=== PATIENT | female | born 1940 | race Hispanic/Latino ===

== ENCOUNTER 2021-05-04 21:24 | Emergency (ER) | payer OTHER ==
--- OUTSIDE RECORDS SUMMARY | 2021-05-04 21:28 | XMS REPORT | Continuity of Care Document ---
:1940 Author Organization [facility] t Address [address] [place] [address] Care Team Providers Name Role Phone Unavailable Unavailable Unavailable Problems This patient has no known problems. Allergies, Adverse Reactions, Alerts This patient has no known allergies or adverse reactions. Medications This patient has no known medications. Procedures This patient has no known procedures. Encounters Start End Encounter Admission Attending Care Care Encounter Source Date/Time Date/Time Type Type Clinicians Facility Department ID 2021-02-21 2021-02-21 Outpatient [id number] 10:04:00 10:04:00 [facility] sukumar [facility] l Results This patient has no known results.
--- NOTE | 2021-05-05 00:53 | EDPHYS ---
Physician Documentation [facility] Name: Melanie Lyons Age: 80 yrs Sex: Female : 1940 Arrival Date: 05/04/2021 Time: 21:28 Bed 24 Private MD: ED Physician Barbara Gomez HPI: 05/04 23:06 This 80 yrs old Female presents to ER via Ambulatory with complaints of Cough - For 2 kb mths. 23:06 The patient or guardian reports cough, that is intermittent, described as moderate, kb with no sputum. Onset: The symptoms/episode began/occurred 2 month(s) ago. Severity of symptoms: At their worst the symptoms were moderate, in the emergency department the symptoms are unchanged. Modifying factors: The symptoms are alleviated by nothing, the symptoms are aggravated by nothing. Associated signs and symptoms: The patient has no apparent associated signs or symptoms. The patient has not experienced similar symptoms in the past. The patient has not recently seen a physician. Patient reports she was on lisinopril and developed a dry cough. States she has had a cough for 2 months now. PCP stopped lisinopril and changed her to metoprolol, also gave Tessalon Perles for cough. Patient states she still has the cough and the medicine does not seem to help. Reports soreness to torso from coughing.. Historical: - Allergies: 22:10 Lisinopril; cough; iw - PMHx: 22:10 Hypertensive disorder; Diabetes mellitus; iw - PSHx: 22:10 None; iw - Immunization history:: Client reports having NOT received the Covid vaccine. - Social history:: Smoking status: Patient denies any tobacco usage or history of. ROS: 23:06 Constitutional: Negative for fever, chills, and weight loss. kb 23:06 Respiratory: Positive for cough, Negative for dyspnea on exertion, hemoptysis, orthopnea, pleurisy, shortness of breath, sputum production, wheezing. 23:06 All other systems are negative. Exam: 23:06 Constitutional: This is a well developed, well nourished patient who is awake, alert, kb and in no acute distress. Head/Face: Normocephalic, atraumatic. ENT: Moist Mucous membranes Cardiovascular: Regular rate and rhythm with a normal S1 and S2. No gallops, murmurs, or rubs. No pulse deficits. Respiratory: Respirations even and unlabored. No increased work of breathing, no retractions or nasal flaring. Skin: Warm, dry with normal turgor. Normal color. MS/ Extremity: Pulses equal, no cyanosis. Neurovascular intact. Full, normal range of motion. Neuro: Awake and alert, GCS 15, oriented to person, place, time, and situation. Moves all extremities. Normal gait. Psych: Awake, alert, with orientation to person, place and time. Behavior, mood, and affect are within normal limits. Vital Signs: 22:07 BP 158 / 65; Pulse 70; Resp 16; Temp 98.9; Pulse Ox 100% on R/A; iw MDM: 22:47 Patient medically screened. 23:13 Data reviewed: vital signs, nurses notes. Data interpreted: Pulse oximetry: on room air kb is 100 %. Interpretation: normal. Counseling: I had a detailed discussion with the patient and/or guardian regarding: the historical points, exam findings, and any diagnostic results supporting the discharge/admit diagnosis, radiology results, the need for outpatient follow up, a family practitioner, to return to the emergency department if symptoms worsen or persist or if there are any questions or concerns that arise at home. 05/04 23:20 Order name: Chest Pa And Lat (2 Views) EDNM Administered Medications: 05/05 01:06 Drug: Tussionex Pennkinetic ER (chlorpheniramine-hydrocodone) Suspension 2.5 ml Route: lh3 PO; 01:06 Follow up: Response: No change in condition 3 Disposition: 07:16 Co-signature as Attending Physician, Barbara Gomez I agree with the assessment and plan sp3 of care. Disposition Summary: 05/05/21 00:53 Discharge Ordered Location: Home Condition: Stable kb Diagnosis - Cough kb Followup: kb - With: Emergency Department - When: As needed - Reason: Worsening of condition Followup: kb - With: Private Physician - When: 2 - 3 days - Reason: Recheck today's complaints, Continuance of care, Re-evaluation by your physician Discharge Instructions: - Discharge Summary Sheet kb - Cough, Adult, [id number] kb Forms: - Medication Reconciliation Form kb - Thank You Letter kb - Antibiotic Education kb - Prescription Opioid Use kb Signatures: Dispatcher [employer] [facility], Abigail, APPLICATION INTEGRATION ARCHITECT-C APPLICATION INTEGRATION ARCHITECT-Ckb Gail Anderson, RN RN iw Barbara Gomez sp3 Karo Nelson RN RN lh3 Corrections: (The following items were deleted from the chart) 05/04 22:11 22:10 Allergies: Lisinopril; violet lazo
--- NOTE | 2021-05-05 00:53 | ER ---
Nurse's Notes [facility] Name: Melanie Lyons Age: 80 yrs Sex: Female : 1940 Arrival Date: 05/04/2021 Time: 21:28 Bed 24 Private MD: Diagnosis: Cough Presentation: 05/04 22:07 Chief complaint: Patient's son or daughter states: cough X 2 months, cannot sleep, it's iw from one of her BP meds, recently got a new PCP, was prescribed Tessalon Perles on 05-02-21 but it's not helping, now her ribs hurt from coughing. Coronavirus screen: At this time, the client does not indicate any symptoms associated with coronavirus-19. Ebola Screen: Patient negative for fever greater than or equal to 101.5 degrees Fahrenheit, and additional compatible Ebola Virus Disease symptoms Patient denies exposure to infectious person. Patient denies travel to an Ebola-affected area in the 21 days before illness onset. No symptoms or risks identified at this time. Initial Sepsis Screen: Does the patient meet any 2 criteria? No. Patient's initial sepsis screen is negative. Does the patient have a suspected source of infection? No. Patient's initial sepsis screen is negative. Risk Assessment: Do you want to hurt yourself or someone else? Patient reports no desire to harm self or others. Onset of symptoms was February 2021. 22:07 Method Of Arrival: Ambulatory iw 22:07 Acuity: VIRAL 4 iw Triage Assessment: 23:21 General: Appears in no apparent distress. Behavior is calm, cooperative, appropriate lh3 for age. Pain: Complains of pain in chest. Historical: - Allergies: 22:10 Lisinopril; cough; iw - PMHx: 22:10 Hypertensive disorder; Diabetes mellitus; iw - PSHx: 22:10 None; iw - Immunization history:: Client reports having NOT received the Covid vaccine. - Social history:: Smoking status: Patient denies any tobacco usage or history of. Screenin:22 Abuse screen: Denies threats or abuse. Nutritional screening: No deficits noted. lh3 Tuberculosis screening: No symptoms or risk factors identified. Fall Risk None identified. Assessment: 23:22 General: Appears in no apparent distress. Behavior is calm, cooperative, appropriate lh3 for age. Vital Signs: 22:07 BP 158 / 65; Pulse 70; Resp 16; Temp 98.9; Pulse Ox 100% on R/A; iw ED Course: 21:28 Patient arrived in ED. 22:10 Triage completed. iw 22:11 Arm band placed on. iw 22:47 Abigail Mcintosh [facility]C [facility] kb 22:47 Barbara Gomez is Attending Physician. kb 22:50 Karo Nelson, RN is Primary Nurse. lh3 23:22 Patient has correct armband on for positive identification. Call light in reach. Side lh3 rails up X 1. Side rails up X2. 23:22 No provider procedures requiring assistance completed. Patient did not have IV access lh3 during this emergency room visit. 05/05 00:11 Chest Pa And Lat (2 Views) In Process Unspecified. EDMS Administered Medications: 01:06 Drug: Tussionex Pennkinetic ER (chlorpheniramine-hydrocodone) Suspension 2.5 ml Route: lh3 PO; 01:06 Follow up: Response: No change in condition lh3 Outcome: 00:53 Discharge ordered by MD. kb 01:19 Discharged to home ambulatory. 3 01:19 Condition: stable 01:19 Discharge instructions given to patient, Instructed on discharge instructions, Demonstrated understanding of instructions. 01:20 Patient left the ED. 3 Signatures: Dispatcher [employer] EDMS Abigail Mcintosh FNP-C FNP-Gail Lawrence RN RN Deena Mendez Karo Nelson RN RN 3 Corrections: (The following items were deleted from the chart) 05/04 22:11 22:10 Allergies: Lisinopril; iw
[2021-05-05 01:24] VITALS: BP 158/65; TEMP 98.9; O2SAT 100
[2021-05-05] MEDS ORDERED: HYDROCODONE/CHLORPHEN 5 ML/OSYR ONE (01:27)
--- NOTE | 2021-05-05 10:30 | RAD REPORT ---
EXAM DESCRIPTION: RADChest Pa And Lat (2 Views)05/05/2021 12:06 am CLINICAL HISTORY: 80 years Female, cough COMPARISON: None. FINDINGS: Cardiomediastinal silhouette is normal. Right middle lobe and lingular atelectasis and/or scarring. No focal consolidation, pneumothorax or pleural effusion. Degenerative changes are present. IMPRESSION: Right middle lobe and lingular atelectasis and/or scarring. Electronically signed by: Juan C Singer MD 05/05/2021 12:21 AM CDT Due to temporary technical issues with the PACS/Fluency reporting system, reports are being signed by the in house radiologists without review as a courtesy to insure prompt reporting. The interpreting radiologist is fully responsible for the content of the report.
== END 2021-05-05 01:20 | disposition home or self-care (01) ==
LOC: ER 21:24
DX: R05 Cough (principal); I10 Essential (primary) hypertension; E11.9 Type 2 diabetes mellitus without complications; Z88.8 Allergy status to other drugs, medicaments and biological substances
CPT/HCPCS: 71046; 99283

== ENCOUNTER 2021-05-14 15:21 | Emergency (ER) | payer OTHER ==
--- OUTSIDE RECORDS SUMMARY | 2021-05-14 15:24 | XMS REPORT | Continuity of Care Document ---
:1940 Author Organization [facility] t Address [address] [place] [address] [address] [place] [address] Care Team Providers Name Role Phone Unavailable [...] Outpatient [id number] [facility] 10:04:00 10:04:00 [facility] sukumar [facility] l Results This patient has no known results.
--- NOTE | 2021-05-14 17:10 | RAD REPORT ---
EXAM DESCRIPTION: CT - Head Brain Wo Cont - 05/14/2021 5:02 pm CLINICAL HISTORY: high BP;Headache;Dizziness Headache, hypertension, drowsiness COMPARISON: No comparisons TECHNIQUE: All CT scans are performed using dose optimization technique as appropriate and may inclu de automated exposure control or mA/KV adjustment according to patient size. FINDINGS: No intracranial hemorrhage, hydrocephalus or extra-axial fluid collection.No areas of brai n edema or evidence of midline shift. The paranasal sinuses and mastoids are clear. The calvarium is intact. IMPRESSION: No acute intracranial abnormality.
--- NOTE | 2021-05-14 17:58 | RAD REPORT ---
EXAM DESCRIPTION: RAD - Chest Single View - 05/14/2021 5:51 pm CLINICAL HISTORY: SOB Chest pain. COMPARISON: Chest Pa And Lat (2 Views) dated 05/04/2021 FINDINGS: Portable technique limits examination quality. Subtle opacity is present in the right lung base laterally and probably the medial left lung base. Th is could represent early signs of pulmonary infection. Mild linear atelectasis is again seen both low er lobes unchanged. The heart is normal in size. No displaced fractures.
[2021-05-14 18:00] LABS: Basophils % 0.5 % (0-1.3); Hematocrit 39.1 % (36.0-45.0); Lymphocytes % 35.5 % (15.3-44.8); MPV 8.4 fL (7.6-11.3); RBC Red Blood Cell Count 4.88 M/uL (3.86-4.86)
[2021-05-14 18:21] LABS: Protime INR 0.91
[2021-05-14 18:41] LABS: ALT/SGPT 25 U/L (12-78); AST/SGOT 17 U/L (15-37); Albumin 3.7 g/dL (3.4-5.0); Alkaline Phosphatase 81 U/L (45-117); BUN Blood Urea Nitrogen 19 mg/dL (7-18); Bicarbonate 27 mmol/L (21-32); Bilirubin Direct < 0.1 mg/dL (0-0.2); Bilirubin Total 0.2 mg/dL (0.2-1.0); Glucose Level 110 mg/dL (74-106); Magnesium 2.2 mg/dL (1.8-2.4); NT PRO-BNP 780 pg/mL (<450); Potassium 4.3 mmol/L (3.5-5.1); Protein, Total 7.4 g/dL (6.4-8.2); Sodium Level 142 mmol/L (136-145); Troponin (Emerg Dept Use Only) < 0.02 ng/mL (0.0-0.045)
--- NOTE | 2021-05-14 19:09 | EDPHYS ---
Physician Documentation [facility] Name: Melanie Lyons Age: 80 yrs Sex: Female : 1940 Arrival Date: 05/14/2021 Time: 15:24 Bed 11 Private MD: Jason Replaced By [facility] ED Physician Mahesh Jesus HPI: 05/14 16:50 This 80 yrs old Female presents to ER via Ambulatory with complaints of High pm1 Blood Pressure, Headache. 16:50 The patient has elevated blood pressure and discovered this at home. pm1 16:50 Onset: The symptoms/episode began/occurred 2 day(s) ago. Modifying factors: The pm1 symptoms are aggravated by Nothing, The symptoms are alleviated by Nothing. Associated signs and symptoms: Pertinent positives: headache, Shortness of breath, Pertinent negatives: chest pain, dizziness, nausea, vomiting. Severity of symptoms: in the emergency department the blood pressure is improved, 163 mm Hg. The patient has experienced a previous episode, 2 months ago the patient presented to her PCP with elevated blood pressure and her medications were changed. She was taking lisinopril at that time and it was changed to her current medication of metoprolol 25 mg twice daily. The patient has not recently seen a physician, the patient's primary care provider is Dr. Gomez. Patient recently changed PCP to Dr. Gomez from Dr. Ngo. Historical: - Allergies: 15:53 Lisinopril; cough; iw 15:53 PENICILLINS; iw - Home Meds: 15:54 metoprolol tartrate 25 mg Oral tab 1 tab 2 times per day [Active]; levothyroxine oral iw [Active]; Metformin Oral [Active]; - PMHx: 15:53 diabetes mellitus; Hypertensive disorder; iw 15:54 Hypothyroidism; iw - PSHx: 15:54 back; Appendectomy; iw - Immunization history:: Client reports having NOT received the Covid vaccine. - Social history:: Smoking status: Patient denies any tobacco usage or history of. ROS: 16:50 Constitutional: Negative for fever, chills, and weight loss, Cardiovascular: Negative pm1 for chest pain, palpitations, and edema. 16:50 Abdomen/GI: Negative for abdominal pain, nausea, vomiting, diarrhea, and constipation, Back: Negative for injury and pain, MS/Extremity: Negative for injury and deformity, Skin: Negative for injury, rash, and discoloration. 16:50 Respiratory: Positive for shortness of breath, When headache present, Negative for cough. 16:50 Neuro: Positive for headache, of the forehead, Negative for numbness, tingling, weakness. 16:50 All other systems are negative. Exam: 16:50 Constitutional: This is a well developed, well nourished patient who is awake, alert, pm1 and in no acute distress. Head/Face: Normocephalic, atraumatic. 16:50 Back: No spinal tenderness. No costovertebral tenderness. Full range of motion. Skin: Warm, dry with normal turgor. Normal color with no rashes, no lesions, and no evidence of cellulitis. MS/ Extremity: Pulses equal, no cyanosis. Neurovascular intact. Full, normal range of motion. 16:50 Eyes: Exam is negative for acute changes, Extraocular movements: no acute changes, Conjunctiva: no acute changes, no injection, Sclera: no acute changes, icterus, is not appreciated. 16:50 ENT: Mouth: Lips: normal, moist, Oral mucosa: normal, pink and intact, moist. 16:50 Neck: Exam negative for acute changes, ROM/movement: no acute changes. 16:50 Cardiovascular: Exam negative for acute changes, Rate: bradycardic, Rhythm: Pulses: no pulse deficits are appreciated, Edema: is not appreciated. 16:50 Respiratory: Exam negative for acute changes, respiratory distress, shortness of breath, Breath sounds: are clear throughout. 16:50 Abdomen/GI: Inspection: abdomen appears normal, Palpation: abdomen is soft and non-tender, in all quadrants. 16:50 Neuro: Exam negative for acute changes, Orientation: is normal, Mentation: is normal, Motor: is normal, moves all fours, Sensation: is normal, no obvious gross deficits. Vital Signs: 15:52 BP 199 / 56; Pulse 75; Resp 16; Temp 97.4; Pulse Ox 97% on R/A; Weight 73.94 kg; Height iw 4 ft. 11 in. (149.86 cm); 16:45 BP 163 / 63; Pulse 58; Resp 16; Pulse Ox 98% ; vg1 17:45 BP 178 / 64; Pulse 56; Resp 16; Pulse Ox 100% ; vg1 18:30 BP 183 / 63; Pulse 57; Resp 16; Pulse Ox 99% ; vg1 15:52 Body Mass Index 32.92 (73.94 kg, 149.86 cm) iw MDM: 16:39 Patient medically screened. [facility] 19:07 Data reviewed: vital signs. Data interpreted: Pulse oximetry: on room air is 99 %. pm1 Interpretation: normal. Counseling: I had a detailed discussion with the patient and/or guardian regarding: the historical points, exam findings, and any diagnostic results supporting the discharge/admit diagnosis, lab results, radiology results, the need for outpatient follow up, for definitive care, a family practitioner, to return to the emergency department if symptoms worsen or persist or if there are any questions or concerns that arise at home. 19:07 Special discussion: I have referred the patient to see his PCP for further evaluation pm1 of high blood pressure. 05/14 16:49 Order name: Basic Metabolic Panel pm1 05/14 16:49 Order name: CBC with Diff pm1 05/14 16:49 Order name: LFT's pm1 05/14 16:49 Order name: Magnesium pm1 05/14 16:49 Order name: NT PRO-BNP pm1 05/14 16:49 Order name: PT-INR; Complete Time: 19:06 pm1 05/14 15:58 Order name: CT Head Brain wo Cont; Complete Time: 17:15 iw 05/14 16:49 Order name: Troponin (emerg Dept Use Only); Complete Time: 19:06 pm1 05/14 16:49 Order name: XRAY Chest (1 view); Complete Time: 18:00 pm1 05/14 16:50 Order name: Basic Metabolic Panel; Complete Time: 19:06 EDMS 05/14 16:50 Order name: CBC with Automated Diff; Complete Time: 18:08 EDMS 05/14 16:50 Order name: Liver (Hepatic) Function; Complete Time: 19:06 EDMS 05/14 16:50 Order name: Magnesium; Complete Time: 19:06 EDMS 05/14 16:50 Order name: NT PRO-BNP; Complete Time: 19:06 EDMS 05/14 16:49 Order name: EKG; Complete Time: 16:50 pm1 05/14 16:49 Order name: Cardiac monitoring; Complete Time: 17:54 pm1 05/14 16:49 Order name: EKG - Nurse/Tech; Complete Time: 17:54 pm1 05/14 16:49 Order name: IV Saline Lock; Complete Time: 17:38 pm1 05/14 16:49 Order name: Labs collected and sent; Complete Time: 17:38 pm1 05/14 16:49 Order name: O2 Per Protocol; Complete Time: 17:28 pm1 05/14 16:49 Order name: O2 Sat Monitoring; Complete Time: 17:28 pm1 Administered Medications: No medications were administered Disposition: 05/15 08:34 Co-signature as Attending Physician, Mahesh Jesus MD I agree with the assessment and dania plan of care. Disposition Summary: 05/14/21 19:08 Discharge Ordered Location: Home pm1 Problem: new pm1 Symptoms: have improved pm1 Condition: Stable pm1 Diagnosis - Essential (primary) hypertension pm1 - Headache pm1 Followup: pm1 - With: Emergency Department - When: As needed - Reason: Worsening of condition Followup: pm1 - With: Alber Gomez, DO - When: 2 - 3 days - Reason: Recheck today's complaints, Continuance of care, Re-evaluation by your physician Discharge Instructions: - Discharge Summary Sheet pm1 - General Headache Without Cause pm1 - Hypertension, Adult pm1 - How to Take Your Blood Pressure, [id number] pm1 - DASH Eating Plan pm1 - Managing Your Hypertension pm1 Forms: - Medication Reconciliation Form pm1 - Thank You Letter pm1 - Antibiotic Education pm1 - Prescription Opioid Use pm1 Signatures: Dispatcher [employer] Mahesh Bone MD MD cha Williams, Irene, RN RN iw Marinas, Patrick, NP [employer] pm1 Corrections: (The following items were deleted from the chart) 05/14 21:09 16:50 Neuro: Positive for headache, Negative for numbness, tingling, weakness, pm1 pm1
--- NOTE | 2021-05-14 19:09 | ER ---
Nurse's Notes [facility] Name: Melanie Lyons Age: 80 yrs Sex: Female : 1940 Arrival Date: 05/14/2021 Time: 15:24 Bed 11 Private MD: Alber Gomez Diagnosis: Essential (primary) hypertension;Headache Presentation: 05/14 15:52 Chief complaint: Patient states: bp has been high for a couple days, was 200/90's, and iw has been having headaches, takes metoprolol 25 mg BID for BP , has been taking as prescribed. Coronavirus screen: At this time, the client does not indicate any symptoms associated with coronavirus-19. Ebola Screen: Patient negative for fever greater than or equal to 101.5 degrees Fahrenheit, and additional compatible Ebola Virus Disease symptoms Patient denies exposure to infectious person. Patient denies travel to an Ebola-affected area in the 21 days before illness onset. No symptoms or risks identified at this time. Initial Sepsis Screen: Does the patient meet any 2 criteria? No. Patient's initial sepsis screen is negative. Does the patient have a suspected source of infection? No. Patient's initial sepsis screen is negative. Risk Assessment: Do you want to hurt yourself or someone else? Patient reports no desire to harm self or others. Onset of symptoms was May 12, 2021. 15:52 Method Of Arrival: Ambulatory iw 15:52 Acuity: VIRAL 2 iw Triage Assessment: 19:22 Pain: Also complains of no other associated symptoms. vg1 19:22 Headache History: The patient has had previous headaches and this one is similar to vg1 previous episodes. Historical: - Allergies: 15:53 Lisinopril; cough; iw 15:53 PENICILLINS; iw - Home Meds: 15:54 metoprolol tartrate 25 mg Oral tab 1 tab 2 times per day [Active]; levothyroxine oral iw [Active]; Metformin Oral [Active]; - PMHx: 15:53 diabetes mellitus; Hypertensive disorder; iw 15:54 Hypothyroidism; iw - PSHx: 15:54 back; Appendectomy; iw - Immunization history:: Client reports having NOT received the Covid vaccine. - Social history:: Smoking status: Patient denies any tobacco usage or history of. Screenin:45 Abuse screen: Denies threats or abuse. Nutritional screening: No deficits noted. vg1 Tuberculosis screening: No symptoms or risk factors identified. Fall Risk No fall in past 12 months (0 pts). No secondary diagnosis (0 pts). IV access (20 points). Ambulatory Aid- None/Bed Rest/Nurse Assist (0 pts). Gait- Normal/Bed Rest/Wheelchair (0 pts) Mental Status- Oriented to own ability (0 pts). Total Hinton Fall Scale indicates No Risk (0-24 pts). Assessment: 16:44 General: Appears in no apparent distress. comfortable, Behavior is calm, cooperative. vg1 Pain: Complains of pain in head Pain currently is 5 out of 10 on a pain scale. Pain began 2-3 days ago. Noted to be grimacing. Neuro: Level of Consciousness is awake, alert, obeys commands, Oriented to person, place, time, situation, Reports blurred vision dizziness, headache. Cardiovascular: Patient's skin is warm and dry. Respiratory: Airway is patent Respiratory effort is even, unlabored. GI: Patient currently denies nausea, vomiting. : No signs and/or symptoms were reported regarding the genitourinary system. EENT: No signs and/or symptoms were reported regarding the EENT system. Derm: Skin is intact, Skin is pink, warm \T\ dry. Musculoskeletal: Circulation, motion, and sensation intact. 18:44 Reassessment: Patient appears in no apparent distress at this time. No changes from vg1 previously documented assessment. Patient and/or family updated on plan of care and expected duration. Pain level reassessed. Patient is alert, oriented x 3, equal unlabored respirations, skin warm/dry/pink. Vital Signs: 15:52 BP 199 / 56; Pulse 75; Resp 16; Temp 97.4; Pulse Ox 97% on R/A; Weight 73.94 kg; Height iw 4 ft. 11 in. (149.86 cm); 16:45 BP 163 / 63; Pulse 58; Resp 16; Pulse Ox 98% ; vg1 17:45 BP 178 / 64; Pulse 56; Resp 16; Pulse Ox 100% ; vg1 18:30 BP 183 / 63; Pulse 57; Resp 16; Pulse Ox 99% ; vg1 15:52 Body Mass Index 32.92 (73.94 kg, 149.86 cm) iw ED Course: 15:24 Patient arrived in ED. mr 15:24 Alber Gomez DO is Private Physician. mr 15:54 Triage completed. iw 15:54 Arm band placed on. iw 16:34 [facility] pm1 16:34 Mahesh Jesus MD is Attending Physician. pm1 16:38 Francoise Dalton, RN is Primary Nurse. vg1 16:45 Patient has correct armband on for positive identification. Bed in low position. Call vg1 light in reach. 17:02 CT Head Brain wo Cont In Process Unspecified. EDMS 17:38 Initial lab(s) drawn, by me, sent to lab. Inserted saline lock: 22 gauge in right vg1 antecubital area, using aseptic technique. Blood collected. 17:51 XRAY Chest (1 view) In Process Unspecified. EDMS 19:08 Alber Gomez DO is Referral Physician. pm1 19:21 No provider procedures requiring assistance completed. IV discontinued, intact, vg1 bleeding controlled, No redness/swelling at site. Pressure dressing applied. Administered Medications: No medications were administered Outcome: 19:08 Discharge ordered by . pm1 19:21 Discharged to home ambulatory. vg1 19:21 Condition: stable 19:21 Discharge instructions given to patient, Instructed on discharge instructions, follow up and referral plans. Demonstrated understanding of instructions, follow-up care. 19:22 Patient left the ED. vg1 Signatures: Dispatcher [employer] EDHI Kahlil Eleanor AndersonGail RN RN Jeremiah Tom NP [employer] pm1 Francoise Dalton, RN RN vg1 Corrections: (The following items were deleted from the chart) 15:54 15:52 Pulse 75bpm; Resp 16bpm; Pulse Ox 97% RA; Temp 97.4F; 73.94 kg; Height 4 ft. 11 iw in.; BMI: 32.9; iw
[2021-05-14 19:28] VITALS: TEMP 97.4
[2021-05-14 19:32] VITALS: BP 183/63; O2SAT 99
== END 2021-05-14 19:22 | disposition home or self-care (01) ==
LOC: ER 15:21
DX: I10 Essential (primary) hypertension (principal); E11.9 Type 2 diabetes mellitus without complications; Z88.0 Allergy status to penicillin; Z88.8 Allergy status to other drugs, medicaments and biological substances
CPT/HCPCS: 36415; 70450; 71045; 80048; 80076; 83735; 83880; 84484; 85025; 85610; 93005; 99284

== ENCOUNTER 2021-06-14 14:44 | Emergency (ER) | payer OTHER ==
[2021-06-14] MEDS ORDERED: MORPHINE 4 MG/ML SYR ONE (15:47)
[2021-06-14] MEDS ORDERED: ONDANSETRON 4 MG/2 ML VIAL ONE (15:48)
[2021-06-14] MEDS ORDERED: NA CHLORIDE 0.9% 500 ML ONE (15:48)
[2021-06-14 16:18] LABS: Absolute Lymphocytes (CBC) 1.4 K/uL (0.7-4.9); Basophils % 0.4 % (0-1.3); Hematocrit 34.8 % (36.0-45.0); Lymphocytes % 14.5 % (15.3-44.8); MPV 8.4 fL (7.6-11.3); RBC Red Blood Cell Count 4.28 M/uL (3.86-4.86)
[2021-06-14 16:53] LABS: ALT/SGPT 29 U/L (12-78); AST/SGOT 10 U/L (15-37); Albumin 3.3 g/dL (3.4-5.0); Alkaline Phosphatase 75 U/L (45-117); BUN Blood Urea Nitrogen 27 mg/dL (7-18); Bicarbonate 28 mmol/L (21-32); Bilirubin Direct < 0.1 mg/dL (0-0.2); Bilirubin Total 0.2 mg/dL (0.2-1.0); Glucose Level 119 mg/dL (74-106); Lipase 112 U/L (73-393); Potassium 4.5 mmol/L (3.5-5.1); Protein, Total 6.7 g/dL (6.4-8.2); Sodium Level 143 mmol/L (136-145)
--- NOTE | 2021-06-14 17:01 | RAD REPORT ---
EXAM DESCRIPTION: CT - Abdomen Pelvis W Contrast - 06/14/2021 4:43 pm CLINICAL HISTORY: Abdominal pain COMPARISON: none. TECHNIQUE: Computed axial tomography of the abdomen pelvis was obtained. 100 cc Isovue-300 was admin istered intravenously. Oral contrast was not requested which limits evaluation of bowel. All CT scans are performed using dose optimization technique as appropriate and may include automated exposure control or mA/KV adjustment according to patient size. FINDINGS: A moderate hiatal hernia. The liver, spleen, pancreas, adrenal and kidneys appear unremarkable. Diverticula stem from the colon. Mild to moderate stranding adjacent to the sigmoid colon. Fibroid uterus. Some of the fibroids are calcified. Low-density area within the uterine fundus either additional fibroid or endometrial thickening Postsurgical changes involve the lumbar spine IMPRESSION: Mild to moderate diverticulitis Fibroid uterus. Some of the fibroids are calcified. Low-density area within the uterine fundus either additional fibroid or endometrial thickening. Nonemergent pelvic ultrasound recommended
--- NOTE | 2021-06-14 17:06 | EDPHYS ---
Physician Documentation [facility] Name: Melanie Lyons Age: 80 yrs Sex: Female : 1940 Arrival Date: 06/14/2021 Time: 14:45 Bed 23 Private MD: ED Physician Mahesh Jesus HPI: 06/14 15:19 This 80 yrs old Female presents to ER via Wheelchair with complaints of Low kb Abd Pain. 15:19 The patient presents with abdominal pain in the lower abdomen. Onset: The kb symptoms/episode began/occurred 3 day(s) ago. The symptoms do not radiate. Associated signs and symptoms: none. The symptoms are described as constant. Modifying factors: The symptoms are alleviated by nothing, the symptoms are aggravated by pressure. Severity of pain: At its worst the pain was moderate in the emergency department the pain is unchanged. The patient has not experienced similar symptoms in the past. The patient has not recently seen a physician. Historical: - Allergies: 14:53 Lisinopril; cough; jl7 14:53 PENICILLINS; jl7 - Home Meds: 14:53 metoprolol tartrate 25 mg Oral tab 1 tab 2 times per day [Active]; Metformin Oral jl7 [Active]; levothyroxine oral [Active]; - PMHx: 14:53 diabetes mellitus; Hypertensive disorder; Hypothyroidism; jl7 - PSHx: 14:53 Appendectomy; back; jl7 - Immunization history:: Adult Immunizations not up to date, Client reports having NOT received the Covid vaccine. - Social history:: Smoking status: Patient denies any tobacco usage or history of. ROS: 15:18 Constitutional: Negative for fever, chills, and weight loss. kb 15:18 Abdomen/GI: Positive for abdominal pain, Negative for nausea, vomiting, and diarrhea. 15:18 All other systems are negative. Exam: 15:18 Constitutional: This is a well developed, well nourished patient who is awake, alert, kb and in no acute distress. Head/Face: Normocephalic, atraumatic. ENT: Moist Mucous membranes Respiratory: Respirations even and unlabored. No increased work of breathing, no retractions or nasal flaring. Skin: Warm, dry with normal turgor. Normal color. MS/ Extremity: Pulses equal, no cyanosis. Neurovascular intact. Full, normal range of motion. Neuro: Awake and alert, GCS 15, oriented to person, place, time, and situation. Moves all extremities. Normal gait. Psych: Awake, alert, with orientation to person, place and time. Behavior, mood, and affect are within normal limits. 15:18 Abdomen/GI: Inspection: abdomen appears normal, Bowel sounds: normal, in all quadrants, Palpation: soft, in all quadrants, moderate abdominal tenderness, in the right lower quadrant and left lower quadrant. Vital Signs: 14:52 BP 172 / 74; Pulse 76; Resp 19; Temp 97.6; Pulse Ox 98% ; Weight 74.84 kg; Height 4 ft. jl7 11 in. (149.86 cm); Pain 6/10; 15:12 BP 153 / 58; Pulse 71; Resp 18; Temp 97.7; Pulse Ox 100% on R/A; aj2 16:16 BP 144 / 62; Pulse 74; Resp 18; Temp 97.7; Pulse Ox 100% ; aj2 14:52 Body Mass Index 33.33 (74.84 kg, 149.86 cm) jl7 MDM: 15:06 Patient medically screened. kb 15:18 Data reviewed: vital signs, nurses notes. Data interpreted: Pulse oximetry: on room air kb is 100 %. Interpretation: normal. 17:04 Counseling: I had a detailed discussion with the patient and/or guardian regarding: the kb historical points, exam findings, and any diagnostic results supporting the discharge/admit diagnosis, lab results, radiology results, the need for outpatient follow up, a family practitioner, a sales compensation analyst, to return to the emergency department if symptoms worsen or persist or if there are any questions or concerns that arise at home. ED course: Discussed inpatient vs outpatient treatment. Pt is nontoxic in appearance. Has not had n/v/d or fever. Wants to try oral outpatient antibiotics first. Will return if unable to tolerate PO medications, worsening pain, development of new symptoms. . 17:09 ED course: CREDIT COLLECTIONS CLERK aware reviewed. . kb 06/14 15:06 Order name: Basic Metabolic Panel; Complete Time: 16:54 kb 06/14 15:06 Order name: CBC with Diff; Complete Time: 16:29 kb 06/14 15:06 Order name: Hepatic Function; Complete Time: 16:54 kb 06/14 15:06 Order name: Lipase; Complete Time: 16:54 kb 06/14 15:06 Order name: CT Abd/Pelvis - IV Contrast Only; Complete Time: 17:02 kb 06/14 17:10 Order name: CREATININE WHOLE BLOOD; Complete Time: 17:11 EDMS 06/14 15:06 Order name: IV Saline Lock; Complete Time: 15:22 kb 06/14 15:06 Order name: Labs collected and sent; Complete Time: 15:22 kb 06/14 15:39 Order name: Labs - recollect needed: recollect green and lavender tube; Complete Time: bd 16:20 Administered Medications: 15:29 Drug: morphine 4 mg Route: IVP; Site: left antecubital; ch5 15:29 Drug: Zofran (Ondansetron) 4 mg Route: IVP; Site: left antecubital; ch5 15:30 Drug: NS 0.9% 500 ml Route: IV; Rate: bolus; Site: left antecubital; ch5 17:24 Drug: Cipro (ciprofloxacin) 500 mg Route: PO; aj2 17:24 Drug: Flagyl (metroNIDAZOLE) 500 mg Route: PO; aj2 Disposition Summary: 06/14/21 17:06 Discharge Ordered Location: Home kb Condition: Stable kb Diagnosis - Diverticulitis of intestine, part unspecified, without perforation or abscess kb without bleeding Followup: kb - With: Emergency Department - When: As needed - Reason: Worsening of condition Followup: kb - With: Private Physician - When: 2 - 3 days - Reason: Recheck today's complaints, Continuance of care, Re-evaluation by your physician Discharge Instructions: - Discharge Summary Sheet kb - Diverticulitis, [id number] kb Forms: - Medication Reconciliation Form kb - Thank You Letter kb - Antibiotic Education kb - Prescription Opioid Use kb Prescriptions: - Flagyl 500 mg Oral Tablet - take 1 tablet by ORAL route every 8 hours for 10 days; 30 tablet; Refills: 0, kb Product Selection Permitted - Zofran 4 mg Oral Tablet - take 1 tablet by ORAL route every 6 hours As needed; 20 tablet; Refills: 0, kb Product Selection Permitted - Cipro 500 mg Oral Tablet - take 1 tablet by ORAL route every 12 hours for 10 days; 20 tablet; Refills: 0, kb Product Selection Permitted - Tramadol 50 mg Oral Tablet - take 1 tablet by ORAL route every 8 hours as needed; 12 tablet; Refills: 0, kb Product Selection Permitted Addendum: 06/16/2021 10:56 Co-signature as Attending Physician, Mahesh Jesus MD I agree with the assessment and c bliss plan of care. Signatures: Dispatcher [employer] Abigail Huffman, MELANIAC CONVEYOR TENDER-CkCarly Robin Corey, MD MD cha Leal, Jahala, RN RN jl7 Miguel Ángel Dubon Christopher RN RN ch5
--- NOTE | 2021-06-14 17:06 | ER ---
Nurse's Notes [facility] Name: Melanie Lyons Age: 80 yrs Sex: Female : 1940 Arrival Date: 06/14/2021 Time: 14:45 Bed 23 Private MD: Diagnosis: Diverticulitis of intestine, part unspecified, without perforation or abscess without bleeding Presentation: 06/14 14:52 Chief complaint: Patient states: LLQ abdominal pain x 3 days, denies N/V/D. Coronavirus jl7 screen: At this time, the client does not indicate any symptoms associated with coronavirus-19. Ebola Screen: No symptoms or risks identified at this time. Initial Sepsis Screen: Does the patient meet any 2 criteria? No. Patient's initial sepsis screen is negative. Does the patient have a suspected source of infection? No. Patient's initial sepsis screen is negative. Risk Assessment: Do you want to hurt yourself or someone else? Patient reports no desire to harm self or others. Onset of symptoms was June 11, 2021. 14:52 Method Of Arrival: Wheelchair jl7 14:52 Acuity: VIRAL 3 jl7 Triage Assessment: 14:53 General: Appears in no apparent distress. uncomfortable, Behavior is calm, cooperative, jl7 appropriate for age. Pain: Complains of pain in left lower quadrant Pain currently is 6 out of 10 on a pain scale. Historical: - Allergies: 14:53 Lisinopril; cough; jl7 14:53 PENICILLINS; jl7 - Home Meds: 14:53 metoprolol tartrate 25 mg Oral tab 1 tab 2 times per day [Active]; Metformin Oral jl7 [Active]; levothyroxine oral [Active]; - PMHx: 14:53 diabetes mellitus; Hypertensive disorder; Hypothyroidism; jl7 - PSHx: 14:53 Appendectomy; back; jl7 - Immunization history:: Adult Immunizations not up to date, Client reports having NOT received the Covid vaccine. - Social history:: Smoking status: Patient denies any tobacco usage or history of. Screenin:12 Abuse screen: Denies threats or abuse. Denies injuries from another. Nutritional aj2 screening: No deficits noted. Tuberculosis screening: No symptoms or risk factors identified. Fall Risk None identified. Assessment: 16:16 Reassessment: Patient appears in no apparent distress at this time. Patient and/or aj2 family updated on plan of care and expected duration. Pain level reassessed. Patient is alert, oriented x 3, equal unlabored respirations, skin warm/dry/pink. Report pain \T\ 3 after medication. 16:43 Reassessment: \T\CT. aj2 Vital Signs: 14:52 BP 172 / 74; Pulse 76; Resp 19; Temp 97.6; Pulse Ox 98% ; Weight 74.84 kg; Height 4 ft. jl7 11 in. (149.86 cm); Pain 6/10; 15:12 BP 153 / 58; Pulse 71; Resp 18; Temp 97.7; Pulse Ox 100% on R/A; aj2 16:16 BP 144 / 62; Pulse 74; Resp 18; Temp 97.7; Pulse Ox 100% ; aj2 14:52 Body Mass Index 33.33 (74.84 kg, 149.86 cm) jl7 ED Course: 14:45 Patient arrived in ED. ds1 14:53 Triage completed. jl7 14:53 Arm band placed on right wrist. jl7 15:06 Abigail Mcintosh FNP-C [facility]. kb 15:06 Mahesh Jesus MD is Attending Physician. kb 15:11 Miguel Ángel Dubon is Primary Nurse. aj2 15:12 Appears restless. Appears tearful. aj2 15:12 Patient has correct armband on for positive identification. aj2 15:12 No provider procedures requiring assistance completed. aj2 15:22 Basic Metabolic Panel Sent. aj2 15:22 CBC with Diff Sent. aj2 15:22 Hepatic Function Sent. aj2 15:22 Lipase Sent. aj2 16:16 No apparent distress. Resting quietly. aj2 16:16 IV is patent, is intact. aj2 16:43 CT Abd/Pelvis - IV Contrast Only In Process Unspecified. EDMS 17:30 IV discontinued. aj2 Administered Medications: 15:29 Drug: morphine 4 mg Route: IVP; Site: left antecubital; ch5 15:29 Drug: Zofran (Ondansetron) 4 mg Route: IVP; Site: left antecubital; ch5 15:30 Drug: NS 0.9% 500 ml Route: IV; Rate: bolus; Site: left antecubital; ch5 17:24 Drug: Cipro (ciprofloxacin) 500 mg Route: PO; aj2 17:24 Drug: Flagyl (metroNIDAZOLE) 500 mg Route: PO; aj2 Outcome: 17:06 Discharge ordered by . monica 17:17 Discharged to home ambulatory. aj2 17:17 Condition: stable 17:17 Discharge instructions given to patient, Instructed on discharge instructions, follow up and referral plans. Demonstrated understanding of instructions, follow-up care. 17:33 Patient left the ED. aj2 Signatures: Dispatcher [employer] EDMS Abigail Mcintosh, FELT HANGER-C FELT HANGER-Leigh Vergara ds1 Arnaud Vergara RN RN jl7 Miguel Ángel Dubon aj2 Lio Mccloud, RN RN ch5
[2021-06-14 17:39] VITALS: TEMP 97.7; O2SAT 100
[2021-06-14] MEDS ORDERED: metroNIDAZOLE 500 MG TABLET ONE (17:39)
[2021-06-14] MEDS ORDERED: CIPROFLOXACIN HCL 500 MG TAB ONE (17:39)
[2021-06-14 17:40] VITALS: BP 144/62
== END 2021-06-14 17:33 | disposition home or self-care (01) ==
LOC: ER 14:44
DX: K57.32 Diverticulitis of large intestine without perforation or abscess without bleeding (principal); I10 Essential (primary) hypertension; E11.9 Type 2 diabetes mellitus without complications; E03.9 Hypothyroidism, unspecified; Z88.0 Allergy status to penicillin; Z88.8 Allergy status to other drugs, medicaments and biological substances
CPT/HCPCS: 85025; 80048; 36415; 82565; 80076; 83690; 74177; 96375; 96374; 99284; Q9967; J7040; J2405

== ENCOUNTER 2021-07-14 12:49 | Inpatient (IN) | payer OTHER ==
--- NOTE | 2021-07-13 12:23 | RAD REPORT ---
EXAM DESCRIPTION: RAD - Chest Pa And Lat (2 Views) - 07/13/2021 12:08 pm CLINICAL HISTORY: pre-op procedure COMPARISON: Chest Single View dated 05/14/2021; Chest Pa And Lat (2 Views) dated 05/04/2021 FINDINGS: Lines: None. Lungs: No evidence of edema or pneumonia. Linear scarring in the mid lungs. Pleural: No significant pleural effusions or pneumothorax. Cardiac: The heart size is within normal limits. Bones: No acute fractures. Other: IMPRESSION: No acute cardiopulmonary disease.
[2021-07-13 12:26] LABS: Absolute Lymphocytes (CBC) 2.6 K/uL (0.7-4.9); Basophils % 0.7 % (0-1.3); Hematocrit 39.1 % (36.0-45.0); Lymphocytes % 36.6 % (15.3-44.8); MPV 8.3 fL (7.6-11.3); RBC Red Blood Cell Count 4.89 M/uL (3.86-4.86)
[2021-07-13 12:32] LABS: Protime INR 0.87
[2021-07-13 12:36] LABS: Potassium 3.7 mmol/L (3.5-5.1)
[2021-07-14] MEDS ORDERED: NA CHLORIDE 0.9% 500 ML ONE (13:40)
[2021-07-14] MEDS ORDERED: HEPA 1000U/500MLS 2,000 UNIT/1,000 ML BAG IV ONE (14:38)
[2021-07-14] MEDS ORDERED: HEPA 1000U/500MLS 1,000 UNIT/500 ML BAG IV ONE (14:46)
[2021-07-14] MEDS ORDERED: FENTANYL CITR 100 MCG/2 ML ONE (14:47)
[2021-07-14] MEDS ORDERED: VERAPAMIL HCL 10 MG/4 ML VIAL IV ONE (14:47)
[2021-07-14] MEDS ORDERED: HEPARIN 5000 UNIT/ML 1 ML VIAL ONE (14:47)
[2021-07-14] MEDS ORDERED: MIDAZOLAM HCL 2 MG/2 ML INJ ONE (14:47)
[2021-07-14] MEDS ORDERED: ATROPINE SULF 1 MG/10 ML SYR IV ONE (14:47)
[2021-07-14] MEDS ORDERED: LIDOCAINE 1% 20 ML MDV ONE (15:33)
[2021-07-14] MEDS ORDERED: CLOPIDOGREL 75 MG TABLET ONE (15:48)
[2021-07-14] MEDS ORDERED: ASPIRIN 325 MG TAB ONE (15:48)
[2021-07-14 18:20] LABS: Hematocrit 36.4 % (36.0-45.0)
[2021-07-14] MEDS ORDERED: ACETAMINOPHEN 325 MG TABLET PO PRN (20:57)
[2021-07-14] MEDS ORDERED: ONDANSETRON 4 MG/2 ML VIAL IV PRN (20:58)
[2021-07-14] MEDS ORDERED: NITROGLYCERIN 0.4 MG/TAB SL ONE (20:58)
[2021-07-14] MEDS ORDERED: NITROGLYCERIN 0.4 MG/TAB SL PRN (20:59)
[2021-07-15] MEDS ORDERED: ONDANSETRON 4 MG/2 ML VIAL IV PRN (00:31)
[2021-07-15] MEDS ORDERED: ACETAMINOPHEN 325 MG TABLET PO PRN (00:33)
[2021-07-15 01:02] VITALS: BMI 33.9
--- NOTE | 2021-07-15 02:36 | OP ---
Date of Procedure: 07/14/2021 Surgeon: RONNIE LOCKWOOD Procedure Performed: 1.Selective coronary angiogram. 2.Left heart catheterization. 3.Right heart catheterization. 4.Percutaneous coronary intervention of critical proximal right coronary artery stenosis, using 3.5 x 20 mm Synergy drug-eluting stent. Access: 1.Right femoral artery 6-Micronesian, closed with StarClose. 2.Failed right radial artery access, placed TR band. 3.Right IJ 7-Micronesian, closed with manual pressure. Complications: None. Bleeding: Less than 20 mL. Indication: Unstable angina. Total Sedation Time: 90 minutes. Description Of Procedure: After risks, benefits, alternatives were explained, the patient agreed to proceed and signed informed consent. The patient was brought into cardiac catheterization laboratory , prepped and draped in usual sterile fashion. Then, we accessed the right radial artery first and c ould not pass equipments through, so aborted the access and put a TR band and accessed right femoral artery with ultrasound guidance and micropuncture kit, placed a 6-Micronesian Princeton sheath. Accessed r ight IJ with ultrasound guidance and micropuncture kit and placed a 7-Micronesian Princeton sheath. Took a 7-Micronesian balloon-tipped Center catheter through the IJ into the RA, RV, PA, and wedge, obtained pressu re waveform and then cardiac output thermodilution was obtained, and removed the Center. Sequentially took a 6-Micronesian JL4 catheter into the aortic root, engaged left main, took standard views, exchanged for 6-Micronesian JR4 catheter and engaged the RCA, took standard views. Sequentially gave systemic hepar in to assure ACT level above 250. Took 6-Micronesian JR4 guide into the aortic root, engaged the RCA. To ok a short Runthrough wire into the RCA, placed it distally in the PDA, and the area of critical sten osis was pre-dilated and then placed a 3.5 x 20 mm Synergy drug-eluting stent with excellent results. Due to the contrast load, we decided to stop the procedure here and bring the patient back in about a month for the OM lesion. Then removed the catheter and the sheath. StarClose was used for closur e with good hemostasis. Findings: 1.Left main is normal. 2.LAD, moderate-size vessel that is normal. Diagonal 1 branch has diffuse 70% stenosis, but small v essel. 3.Left circumflex. The circumflex itself distally is small; however, in the mid circumflex and the proximal OM, there is diffuse 90% stenosis with RIKI-3 flow. 4.RCA, proximal 95% to 99% stenosis, status post successful PCI as above. 5.Right heart catheter numbers: RA was 7. RV pressure was 51/5 with a mean of 9. PA pressure was 65/12 with a mean of 30. Pulmonary wedge pressure was 13. LVEDP was 19. The catheter was pushed ov er the wire into the LV. LVEDP was measured and upon pullback, there was no gradient. Conclusion: 1.Critical proximal RCA stenosis, status post successful PCI as above. 2.Severe OM branch disease, which will be staged for PCI in about 4 weeks due to the contrast load. 3.Elevated filling pressures. Plan: 1.Aspirin, Plavix, and high-dose statin. The patient was loaded with 600 mg of Plavix today and 325 mg aspirin. To continue aspirin and Plavix daily. 2.Start her on Lasix 40 mg daily. 3.See her in the office in 1 week. SR/MODL Voice ID: [id number] Report ID: [id number]
[2021-07-15 05:24] VITALS: O2SAT 95
[2021-07-15 08:25] VITALS: TEMP 97.3
[2021-07-15] MEDS ORDERED: CLOPIDOGREL 75 MG TABLET PO SCH (09:00)
[2021-07-15] MEDS ORDERED: ASPIRIN EC 81 MG TAB PO SCH (09:00)
[2021-07-15 12:10] VITALS: BP 127/58
--- OUTSIDE RECORDS SUMMARY | 2021-07-29 18:25 | XMS REPORT | Continuity of Care Document ---
:1940 Author Organization [facility] t Address [address] [place] [address] Care Team Providers Name Role Phone Evelio PÉREZ, Kiana A Primary Care Physician [phone] JACOB Attending Clinician Unavailable Pablo Fraser MD Attending Clinician Doctor Unassigned, Name Attending Clinician Unavailable VIDAL Attending Clinician Unavailable Lab, Fam Pob I Attending Clinician Unavailable Alexander CHAVIRA Attending Clinician ALEXANDER Attending Clinician Unavailable Minh Giraldo Attending Clinician Zeeshan Dorsey MD Attending Clinician ZEESHAN DORSEY Attending Clinician Unavailable Provider, Urgent Care Attending Clinician Unavailable Sol MELENDEZ Attending Clinician SOL Attending Clinician Unavailable Pablo FRASER Attending Clinician Unavailable Karina MILLAN Attending Clinician Unavailable Karina MILLAN Attending Clinician Unavailable JAYLA Attending Clinician Unavailable Jose Guadalupe PÉREZ Attending Clinician Jayla PÉREZ Attending Clinician Karina Millan MD Attending Clinician Neal Jon DO Attending Clinician ROSAS K.[facility]. Attending Clinician Unavailable Pablo MARTINS Attending Clinician Unavailable Shahla Cooper Attending Clinician Vidal PÉREZ Attending Clinician 1, Sleep Lab Bed Attending Clinician Unavailable Only, Test Attending Clinician Unavailable Ramona PÉREZ Attending Clinician Tech, Sleep Lab Attending Clinician Unavailable Nuha PASSENGER SERVICE MANAGER, B Attending Clinician 2, Lab Attending Clinician Unavailable Ivon BEGUM Attending Clinician CLAYTON Attending Clinician Unavailable CLAYTON Attending Clinician Unavailable Motility Attending Clinician Unavailable Gabriel LIVINGSTON Attending Clinician Sonia MORALEZP, T Attending Clinician Donald PÉREZ Attending Clinician VIRY BAUER Attending Clinician Unavailable Haider Ko MD Attending Clinician Unknown Attending Clinician Unavailable Gramm PASSENGER SERVICE MANAGER, A Attending Clinician Jacob PÉREZ Attending Clinician Luís CHAVIRA Attending Clinician JACOB Admitting Clinician Unavailable Donald PÉREZ Admitting Clinician Payers Payer Name Policy Type Policy Number Effective Date Expiration Date S giovanny DIXON MEDICARE ADV [id number] 2016 00:00:00 Problems Condition Condition Condition Status Onset Resolution Last Treating Co mments Source Name Details Category Date Date Treatment Clinician Date Microalbum Microalbum Disease Active U nivers inuria inuria 5-24 ity of 00:00: [address] Chronic Chronic Disease Active Univers kidney kidney 1-05 ity of disease, disease, 00:00: [place] stage III stage III 00 Medi kacey (moderate) (moderate) Br anch Thiamine Thiamine Disease Active 2019-09 Unive rs deficiency deficiency 2-16 it y of 00:00: [address] Iron Iron Disease Active 2019-09 Univers deficiency deficiency 2-16 it y of 00:00: [address] PAD PAD Disease Active 2019-09 Univers (periphera (periphera 2-09 it y of l artery l artery 00:00: [place] disease) disease) 00 Medica l Branch Venous Venous Disease Active 2019-09 Univers insufficie insufficie 2-09 it y of ncy ncy 00:00: 00 Medical Branch DAVID DAVID Disease Active 2019-09 Univers (obstructi (obstructi 0-12 it y of ve sleep ve sleep 00:00: [place] apnea) apnea) 00 Medical Branch Pulmonary Pulmonary Disease Active Uni vers embolism embolism 3-21 ity of 00:00: 00 Medical Branch History of History of Disease Active Overview : Univers colon colon 9-20 Formattin ity of polyps polyps 00:00: g of this 00 note Medical might be Branch different from the original. Added automatic ally from request for surgery [id number] Asthma Asthma Disease Active Univers exacerbati exacerbati 1-22 it y of on on 00:00: Medical Branch Renal Renal Disease Active Univers cyst, cyst, 1-21 ity of right right 00:00: Medical Branch Radiculopa Radiculopa Disease Active U nivers thy thy 2-01 ity of 00:00: Medical Branch Spinal Spinal Disease Active Univers stenosis, stenosis, 1-31 ity of lumbar lumbar 00:00: [place] region, region, 00 Medical without without Branch neurogenic neurogenic claudicati claudicati on on Acquired Acquired Disease Active 2016-09 Unive rs hypothyroi hypothyroi 2-19 it y of dism dism 00:00: [place] [facility] Enlarged Enlarged Disease Active 2016-09 Unive rs uterus uterus 0-31 ity of 00:00: [place] 00 Medical Branch Pelvic Pelvic Disease Active 2016-09 Univers mass mass 0-31 ity of 00:00: Medical Branch Thickened Thickened Disease Active 2016-09 Uni vers endometriu endometriu 0-31 it y of m m 00:00: [place] [facility] Fibroid Fibroid Disease Active 2016-09 Univers uterus uterus 0-31 ity of 00:00: [place] 00 Medical Branch Fatty Fatty Disease Active 2016-09 Univers liver liver 0-05 ity of 00:00: [place] 00 Medical Branch Abnormal Abnormal Disease Active Unive rs LFTs LFTs 9-21 ity of (liver (liver 00:00: [place] function function 00 Medica l tests) tests) Branch Chronic Chronic Disease Active Univers insomnia insomnia 9-21 ity of 00:00: [place] 00 Medical Branch 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 06-07 it y of ia ia 00:00: [place] 00 [facility] Type 2 Type 2 Disease Active Univers diabetes diabetes ity of mellitus mellitus [place] without without Medical complicati complicati Br anch on, on, without without long-term long-term current current use of use of insulin insulin Dry eyes Dry eyes Disease Active Unive rs ity of [facility] Edema Edema Disease Active Univers ity of [facility] Esophageal Esophageal Disease Active U nivers reflux reflux ity of [facility] Osteoporos Osteoporos Disease Active U nivers is is ity of [facility] Obesity Obesity Disease Active Univers ity of [facility] Parapelvic Parapelvic Disease Active U nivers renal cyst renal cyst it y of [facility] Chronic Chronic Disease Active Univers low back low back ity of pain [place] sciatic[place] sciatica Medica l Branch Allergies, Adverse Reactions, Alerts Allergy Allergy Status Severity Reaction(s) Onset Inactive Treating Comm ents Source Name Type Date Date Clinician METOPROL DRUG Active Med ITCHING Univers OL INGREDI 02-04 ity of 00:00: [place] 00 [facility] Metoprol Propensi Active Rash Univer s ol ty to 02-04 ity of adverse 00:00: [place] reaction 00 [facility] LOSARTAN DRUG Active Dizziness 2020-0 Unive rs INGREDI 9 ity of 00:00: [place] 00 [facility] AMLODIPI DRUG Active Other-Cmnt 2020-0 Univ ers NE INGREDI 06-09 ity of 00:00: [place] 00 [facility] Amlodipi Propensi Active Other - See 2020-0 GERD U nivers ne ty to comments 06-09 ity of adverse 00:00: [place] reaction 00 [facility] Losartan Propensi Active Dizziness 2020-0 Uni vers ty to 06-09 ity of adverse 00:00: [place] reaction 00 [facility] APIXABAN DRUG Active Swelling 2020-0 Univer s INGREDI 4-20 ity of 00:00: [place] 00 [facility] Apixaban Propensi Active Swelling 2020-0 Univ ers ty to -20 ity of adverse 00:00: [place] reaction 00 [facility] FIBRATE Drug Active Other-Cmnt 2020-0 Unive rs ANTI-LIP Class 2-23 ity of IDEMICS 00:00: [place] 00 [facility] EZETIMIB DRUG Active Other-Cmnt 2019-0 Univ ers E INGREDI 2- ity of 00:00: [place] 00 Medical Branch Fibrate Propensi Active Other - See 2019-0 Severe Un [place] Anti-Lip ty to comments 2- myalgia ity o f idemics adverse 00:00: [place] reaction 00 Medical s Branch Ezetimib Propensi Active Other - See Severe U nivers e ty to comments 11-09 myalgia ity of adverse 00:00: [place] reaction 00 Medical s Branch AMPICILL DRUG Active Rash 2017-0 Univers IN INGREDI 9- ity of 00:00: [place] 00 Medical Branch STATINS- Drug Active Other-Cmnt 2016- Univ ers HMG-COA Class - ity of REDUCTAS 00:00: [place] E 00 Medical INHIBITO Branch RS Ampicill Propensi Active Rash 2016- Univer s in ty to 05-28 ity of adverse 00:00: [place] reaction 00 Medical s Branch Statins- Propensi Active Other - See Severe U nivers Hmg-Coa ty to comments 05-28 myalgia ity of Reductas adverse 00:00: [place] e reaction 00 Medical Inhibito s Branch rs Social History Social Habit Start Date Stop Date Quantity Comments Source Exposure to Not sure [facility] SARS-CoV-2 [place] Medical (event) Branch Tobacco use and 2021-03-08 2021-03-08 Never used Universit y of exposure 00:00:00 00:00:00 [facility] Branch Alcohol intake 2021-03-08 2021-03-08 Current University of 00:00:00 00:00:00 non-drinker of [facility] alcohol Branch (finding) History [facility] Food 2019-12-07 2019-12-07 1 Univers ity of Worry 00:00:00 00:00:00 [place] [facility] History [facility] Food 2019-12-07 2019-12-07 1 Univers ity of Scarcity 00:00:00 00:00:00 [place] [facility] History [facility] 2019-12-07 2019-12-07 2 University o f Transport Med 00:00:00 00:00:00 [place] Medic al Branch History [facility] 2019-12-07 2019-12-07 2 University o f Transport Non-Med 00:00:00 00:00:00 [facility] Sex [birth year] At [birth year] Universit y of 00:00:00 00:00:00 [facility] Smoking Status Start Date Stop Date Source Never smoker [facility] [place] Medications Ordered Filled Start Stop Current Ordering Indication Dosage Frequency Signature Comments Components Source Medication Medication Date Date Medication? Clinician (SIG) Name Name DEXILANT 60 Yes [id number] 60mg TAKE 1 Univers mg capsule 8-18 CAPSULE BY ity of 00:00: MOUTH [place] 00 DAILY. Medical STOP Branch ESOMEPRAZO LE. lisinopriL Yes [id number] 20mg Take 1 U nivers 20 mg 6-22 tablet by ity of tablet 00:00: mouth [place] 00 daily. Medical Branch levothyroxi Yes [id number] 50ug Take 1 Univers ne 50 mcg 6-22 tablet by ity o f tablet 00:00: mouth [place] 00 every Medical morning. Branch lisinopriL Yes [id number] 20mg Take 1 U nivers 20 mg 6-22 tablet by ity of tablet 00:00: mouth [place] 00 daily. Medical Branch levothyroxi Yes [id number] 50ug Take 1 Univers ne 50 mcg 6-22 tablet by ity o f tablet 00:00: mouth [place] 00 every Medical morning. Branch lisinopriL Yes [id number] 20mg Take 1 U nivers 20 mg 6-22 tablet by ity of tablet 00:00: mouth [place] 00 daily. Medical Branch levothyroxi Yes [id number] 50ug Take 1 Univers ne 50 mcg 6-22 tablet by ity o f tablet 00:00: mouth [place] 00 every Medical morning. Branch lisinopriL Yes [id number] 20mg Take 1 U nivers 20 mg 6-22 tablet by ity of tablet 00:00: mouth [place] 00 daily. Medical Branch levothyroxi Yes [id number] 50ug Take 1 Univers ne 50 mcg 6-22 tablet by ity o f tablet 00:00: mouth [place] 00 every Medical morning. Branch lisinopriL Yes [id number] 20mg Take 1 U nivers 20 mg 6-22 tablet by ity of tablet 00:00: mouth [place] 00 daily. Medical Branch levothyroxi Yes [id number] 50ug Take 1 Univers ne 50 mcg 6-22 tablet by ity o f tablet 00:00: mouth [place] 00 every Medical morning. [place] lisinopriL Yes [id number] 20mg Take 1 U nivers 20 mg 6-22 tablet by ity of tablet 00:00: mouth [place] 00 daily. [facility] levothyroxi Yes [id number] 50ug Take 1 Univers ne 50 mcg 6-22 tablet by ity o f tablet 00:00: mouth [place] 00 every Medical morning. [place] LEVOTHYROXI Yes [id number] TAKE 1 Univers NE 50 mcg 6-21 TABLET BY ity o f tablet 00:00: MOUTH [place] 00 EVERY DAY Medical IN THE [place] MORNING LEVOTHYROXI 2020- No [id number] TAKE 1 Univers NE 50 mcg 6-21 06-22 TABLET BY ity of tablet 00:00: 00:00 MOUTH [place] 00 :00 EVERY DAY Medical IN THE [facility] LEVOTHYROXI 2020- No [id number] TAKE 1 Univers NE 50 mcg 6-21 06-22 TABLET BY ity of tablet 00:00: 00:00 MOUTH [place] 00 :00 EVERY DAY Medical IN THE [place] MORNING TRIAMTERENE Yes [id number] TAKE 1 Univers -HYDROCHLOR 6-08 TABLET BY ity of OTHIAZID 00:00: MOUTH [place] 37.5-25 mg 00 EVERY DAY Medi kacey tablet [place] TRIAMTERENE Yes [id number] TAKE 1 Univers -HYDROCHLOR 6-08 TABLET BY ity of OTHIAZID 00:00: MOUTH [place] 37.5-25 mg 00 EVERY DAY Medi kacey tablet [place] TRIAMTERENE Yes [id number] TAKE 1 Univers -HYDROCHLOR 6-08 TABLET BY ity of OTHIAZID 00:00: MOUTH [place] 37.5-25 mg 00 EVERY DAY Medi kacey tablet [place] TRIAMTERENE Yes [id number] TAKE 1 Univers -HYDROCHLOR 6-08 TABLET BY ity of OTHIAZID 00:00: MOUTH [place] 37.5-25 mg 00 EVERY DAY Medi kacey tablet [place] TRIAMTERENE Yes [id number] TAKE 1 Univers -HYDROCHLOR 6-08 TABLET BY ity of OTHIAZID 00:00: MOUTH [place] 37.5-25 mg 00 EVERY DAY Medi kacey tablet Branch TRIAMTERENE 2020-0 Yes [id number] TAKE 1 Univers -HYDROCHLOR 6-08 TABLET BY ity of OTHIAZID 00:00: MOUTH [place] 37.5-25 mg 00 EVERY DAY Medi kacey tablet Branch TRIAMTERENE 2020-0 Yes [id number] TAKE 1 Univers -HYDROCHLOR 6-08 TABLET BY ity of OTHIAZID 00:00: MOUTH [place] 37.5-25 mg 00 EVERY DAY Medi kacey tablet Branch TRIAMTERENE 2020-0 Yes [id number] TAKE 1 Univers -HYDROCHLOR 6-08 TABLET BY ity of OTHIAZID 00:00: MOUTH [place] 37.5-25 mg 00 EVERY DAY Medi kacey tablet Branch TRIAMTERENE 2020-0 Yes [id number] TAKE 1 Univers -HYDROCHLOR 6-08 TABLET BY ity of OTHIAZID 00:00: MOUTH [place] 37.5-25 mg 00 EVERY DAY Medi kacey tablet Branch TRIAMTERENE 2020-0 Yes [id number] TAKE 1 Univers -HYDROCHLOR 6-08 TABLET BY ity of OTHIAZID 00:00: MOUTH [place] 37.5-25 mg 00 EVERY DAY Medi kacey tablet Branch acetaminoph 2020-0 Yes Univer s en-codeine 6-07 ity of 300-30 mg 00:00: [place] tablet 00 Medical Branch acetaminoph 1-0 Yes Univer s en-codeine 6-07 ity of 300-30 mg 00:00: [place] tablet 00 Medical Branch acetaminoph 2021-0 Yes Univer s en-codeine 6-07 ity of 300-30 mg 00:00: [place] tablet 00 Medical Branch acetaminoph 1-0 Yes Univer s en-codeine 6-07 ity of 300-30 mg 00:00: [place] tablet 00 Medical Branch acetaminoph 2021-0 Yes Univer s en-codeine 6-07 ity of 300-30 mg 00:00: [place] tablet 00 Medical Branch acetaminoph 2021-0 Yes Univer s en-codeine 6-07 ity of 300-30 mg 00:00: [place] tablet 00 Medical Branch hydrOXYzine 1-0 Yes [id number] 25mg Take 1 Univers 25 mg 5-24 tablet by ity of tablet 00:00: mouth [place] 00 every 6 Medical (six) Branch hours as needed for Itching. triamcinolo 2021-0 Yes [id number] Apply to Univers ne 5-24 area(s) 2 ity of acetonide 00:00: (two) [place] 0.1 % cream 00 times Medical daily. Branch hydrOXYzine 2021-0 Yes [id number] 25mg Take 1 Univers 25 mg 5-24 tablet by ity of tablet 00:00: mouth [place] 00 every 6 Medical (six) Branch hours as needed for Itching. triamcinolo 2021-0 Yes [id number] Apply to Univers ne 5-24 area(s) 2 ity of acetonide 00:00: (two) [place] 0.1 % cream 00 times Medical daily. Branch hydrOXYzine 2021-0 Yes [id number] 25mg Take 1 Univers 25 mg 5-24 tablet by ity of tablet 00:00: mouth [place] 00 every 6 Medical (six) Branch hours as needed for Itching. triamcinolo 2021-0 Yes [id number] Apply to Univers ne 5-24 area(s) 2 ity of acetonide 00:00: (two) [place] 0.1 % cream 00 times Medical daily. Branch hydrOXYzine 2021-0 Yes [id number] 25mg Take 1 Univers 25 mg 5-24 tablet by ity of tablet 00:00: mouth [place] 00 every 6 Medical (six) Branch hours as needed for Itching. triamcinolo 2021-0 Yes [id number] Apply to Univers ne 5-24 area(s) 2 ity of acetonide 00:00: (two) [place] 0.1 % cream 00 times Medical daily. Branch hydrOXYzine 2021-0 Yes [id number] 25mg Take 1 Univers 25 mg 5-24 tablet by ity of tablet 00:00: mouth [place] 00 every 6 Medical (six) Branch hours as needed for Itching. triamcinolo 2021-0 Yes [id number] Apply to Univers ne 5-24 area(s) 2 ity of acetonide 00:00: (two) [place] 0.1 % cream 00 times Medical daily. Branch hydrOXYzine 2021-0 Yes [id number] 25mg Take 1 Univers 25 mg 5-24 tablet by ity of tablet 00:00: mouth [place] 00 every 6 Medical (six) Branch hours as needed for Itching. triamcinolo 2021-0 Yes [id number] Apply to Univers ne 5-24 area(s) 2 ity of acetonide 00:00: (two) [place] 0.1 % cream 00 times Medical daily. Branch hydrOXYzine 2021-0 Yes [id number] 25mg Take 1 Univers 25 mg 5-24 tablet by ity of tablet 00:00: mouth [place] 00 every 6 Medical (six) Branch hours as needed for Itching. triamcinolo 2021-0 Yes [id number] Apply to Univers ne 5-24 area(s) 2 ity of acetonide 00:00: (two) [place] 0.1 % cream 00 times Medical daily. Branch hydrOXYzine 2021-0 Yes [id number] 25mg Take 1 Univers 25 mg 5-24 tablet by ity of tablet 00:00: mouth [place] 00 every 6 Medical (six) Branch hours as needed for Itching. triamcinolo 2021-0 Yes [id number] Apply to Univers ne 5-24 area(s) 2 ity of acetonide 00:00: (two) [place] 0.1 % cream 00 times Medical daily. Branch hydrOXYzine 2021-0 Yes [id number] 25mg Take 1 Univers 25 mg 5-24 tablet by ity of tablet 00:00: mouth [place] 00 every 6 Medical (six) Branch hours as needed for Itching. triamcinolo 2021-0 Yes [id number] Apply to Univers ne 5-24 area(s) 2 ity of acetonide 00:00: (two) [place] 0.1 % cream 00 times Medical daily. Branch hydrOXYzine 2021-0 Yes [id number] 25mg Take 1 Univers 25 mg 5-24 tablet by ity of tablet 00:00: mouth [place] 00 every 6 Medical (six) Branch hours as needed for Itching. triamcinolo 2021-0 Yes [id number] Apply to Univers ne 5-24 area(s) 2 ity of acetonide 00:00: (two) [place] 0.1 % cream 00 times Medical daily. Branch hydrOXYzine 2021-0 Yes [id number] 25mg Take 1 Univers 25 mg 5-24 tablet by ity of tablet 00:00: mouth [place] 00 every 6 Medical (six) Branch hours as needed for Itching. triamcinolo 2020-0 Yes [id number] Apply to Univers ne 5-24 area(s) 2 ity of acetonide 00:00: (two) [place] 0.1 % cream 00 times Medical daily. Branch hydrOXYzine 2020-0 Yes [id number] 25mg Take 1 Univers 25 mg 5-24 tablet by ity of tablet 00:00: mouth [place] 00 every 6 Medical (six) Branch hours as needed for Itching. triamcinolo 2020-0 Yes [id number] Apply to Univers ne 5-24 area(s) 2 ity of acetonide 00:00: (two) [place] 0.1 % cream 00 times Medical daily. Branch hydrOXYzine 2020-0 Yes [id number] 25mg Take 1 Univers 25 mg 5-24 tablet by ity of tablet 00:00: mouth [place] 00 every 6 Medical (six) Branch hours as needed for Itching. triamcinolo 2020-0 Yes [id number] Apply to Univers ne 5-24 area(s) 2 ity of acetonide 00:00: (two) [place] 0.1 % cream 00 times Medical daily. Branch Magnesium Yes Take by Univ ers 250 mg Tab 5-21 mouth. ity of 22:05: [place] [address] Medical Branch vitamin B-6 0 Yes 100mg Take 100 U nivers (VITAMIN 5-21 mg by ity of B-6) 100 mg 22:05: mouth [place] tablet 48 daily. Medical Branch CALCIUM 0 Yes Take by Univer s CARBONATE/V 5-21 mouth. ity of ITAMIN D3 22:05: [place] (VITAMIN 48 Medical D-3 ORAL) Branch Magnesium 2020-0 Yes Take by Univ ers 250 mg Tab 5-21 mouth. ity of 22:05: [place] [address] Medical Branch vitamin B-6 2020-0 Yes 100mg Take 100 U nivers (VITAMIN 5-21 mg by ity of B-6) 100 mg 22:05: mouth [place] tablet 48 daily. Medical Branch CALCIUM 2020-0 Yes Take by Univer s CARBONATE/V 5-21 mouth. ity of ITAMIN D3 22:05: [place] (VITAMIN 48 Medical D-3 ORAL) Branch Magnesium 2020-0 Yes Take by Univ ers 250 mg Tab 5-21 mouth. ity of 22:05: [place] [address] Medical Branch vitamin B-6 Yes 100mg Take 100 U nivers (VITAMIN 5-21 mg by ity of B-6) 100 mg 22:05: mouth [place] tablet 48 daily. Medical Branch CALCIUM Yes Take by Univer s CARBONATE/V 5-21 mouth. ity of ITAMIN D3 22:05: [place] (VITAMIN 48 Medical D-3 ORAL) Branch Magnesium Yes Take by Univ ers 250 mg Tab 5-21 mouth. ity of 22:05: [place] [address] Medical Branch vitamin B-6 Yes 100mg Take 100 U nivers (VITAMIN 5-21 mg by ity of B-6) 100 mg 22:05: mouth [place] tablet 48 daily. Medical Branch CALCIUM Yes Take by Univer s CARBONATE/V 5-21 mouth. ity of ITAMIN D3 22:05: [place] (VITAMIN 48 Medical D-3 ORAL) Branch Magnesium Yes Take by Univ ers 250 mg Tab 5-21 mouth. ity of 22:05: [place] [address] Medical Branch vitamin B-6 Yes 100mg Take 100 U nivers (VITAMIN 5-21 mg by ity of B-6) 100 mg 22:05: mouth [place] tablet 48 daily. Medical Branch CALCIUM Yes Take by Univer s CARBONATE/V 5-21 mouth. ity of ITAMIN D3 22:05: [place] (VITAMIN 48 Medical D-3 ORAL) Branch Magnesium Yes Take by Univ ers 250 mg Tab 5-21 mouth. ity of 22:05: [place] [address] Medical Branch vitamin B-6 Yes 100mg Take 100 U nivers (VITAMIN 5-21 mg by ity of B-6) 100 mg 22:05: mouth [place] tablet 48 daily. Medical Branch CALCIUM Yes Take by Univer s CARBONATE/V 5-21 mouth. ity of ITAMIN D3 22:05: [place] (VITAMIN 48 Medical D-3 ORAL) Branch Magnesium Yes Take by Univ ers 250 mg Tab 5-21 mouth. ity of 22:05: [place] [address] Medical Branch vitamin B-6 Yes 100mg Take 100 U nivers (VITAMIN 5-21 mg by ity of B-6) 100 mg 22:05: mouth [place] tablet 48 daily. Medical Branch CALCIUM Yes Take by Univer s CARBONATE/V 5-21 mouth. ity of ITAMIN D3 22:05: [place] (VITAMIN 48 Medical D-3 ORAL) Branch Magnesium Yes Take by Univ ers 250 mg Tab 5-21 mouth. ity of 22:05: [place] [address] Medical Branch vitamin B-6 Yes 100mg Take 100 U nivers (VITAMIN 5-21 mg by ity of B-6) 100 mg 22:05: mouth [place] tablet 48 daily. Medical Branch CALCIUM Yes Take by Univer s CARBONATE/V 5-21 mouth. ity of ITAMIN D3 22:05: [place] (VITAMIN 48 Medical D-3 ORAL) Branch Magnesium Yes Take by Univ ers 250 mg Tab 5-21 mouth. ity of 22:05: [place] [address] Medical Branch vitamin B-6 Yes 100mg Take 100 U nivers (VITAMIN 5-21 mg by ity of B-6) 100 mg 22:05: mouth [place] tablet 48 daily. Medical Branch CALCIUM Yes Take by Univer s CARBONATE/V 5-21 mouth. ity of ITAMIN D3 22:05: [place] (VITAMIN 48 Medical D-3 ORAL) Branch Magnesium Yes Take by Univ ers 250 mg Tab 5-21 mouth. ity of 22:05: [place] [address] Medical Branch vitamin B-6 Yes 100mg Take 100 U nivers (VITAMIN 5-21 mg by ity of B-6) 100 mg 22:05: mouth [place] tablet 48 daily. Medical Branch CALCIUM Yes Take by Univer s CARBONATE/V 5-21 mouth. ity of ITAMIN D3 22:05: [place] (VITAMIN 48 Medical D-3 ORAL) Branch Magnesium Yes Take by Univ ers 250 mg Tab 5-21 mouth. ity of 22:05: [place] [address] Medical Branch vitamin B-6 Yes 100mg Take 100 U nivers (VITAMIN 5-21 mg by ity of B-6) 100 mg 22:05: mouth [place] tablet 48 daily. Medical Branch CALCIUM Yes Take by Univer s CARBONATE/V 5-21 mouth. ity of ITAMIN D3 22:05: [place] (VITAMIN 48 Medical D-3 ORAL) Branch Magnesium Yes Take by Univ ers 250 mg Tab 5-21 mouth. ity of 22:05: [place] [address] Medical Branch vitamin B-6 Yes 100mg Take 100 U nivers (VITAMIN 5-21 mg by ity of B-6) 100 mg 22:05: mouth [place] tablet 48 daily. Medical Branch CALCIUM Yes Take by Univer s CARBONATE/V 5-21 mouth. ity of ITAMIN D3 22:05: [place] (VITAMIN 48 Medical D-3 ORAL) Branch Magnesium Yes Take by Univ ers 250 mg Tab 5-21 mouth. ity of 22:05: [place] [address] Medical Branch vitamin B-6 Yes 100mg Take 100 U nivers (VITAMIN 5-21 mg by ity of B-6) 100 mg 22:05: mouth [place] tablet 48 daily. Medical Branch CALCIUM Yes Take by Univer s CARBONATE/V 5-21 mouth. ity of ITAMIN D3 22:05: [place] (VITAMIN 48 Medical D-3 ORAL) Branch Magnesium Yes Take by Univ ers 250 mg Tab 5-21 mouth. ity of 22:05: [place] [address] Medical Branch vitamin B-6 Yes 100mg Take 100 U nivers (VITAMIN 5-21 mg by ity of B-6) 100 mg 22:05: mouth [place] tablet 48 daily. Medical Branch CALCIUM Yes Take by Univer s CARBONATE/V 5-21 mouth. ity of ITAMIN D3 22:05: [place] (VITAMIN 48 Medical D-3 ORAL) Branch Magnesium Yes Take by Univ ers 250 mg Tab 5-21 mouth. ity of 22:05: [place] [address] Medical Branch vitamin B-6 Yes 100mg Take 100 U nivers (VITAMIN 5-21 mg by ity of B-6) 100 mg 22:05: mouth [place] tablet 48 daily. Medical Branch CALCIUM Yes Take by Univer s CARBONATE/V 5-21 mouth. ity of ITAMIN D3 22:05: [place] (VITAMIN 48 Medical D-3 ORAL) Branch alcaftadine Yes Place in U nivers (LASTACAFT) 5-21 each eye. ity of 0.25 % Drop 22:05: [place] [address] Medical Branch [address] Yes [address] in U nivers E (RESTASIS 5-21 each eye. ity of OPHTHALMIC) 22:05: [place] [address] Medical Branch vitamin E 2020-0 Yes 1000U Take 1,000 U nivers 1,000 unit 5-21 Units by ity o f capsule 22:05: mouth [place] [id number] daily. Medical Branch alcaftadine 2020-[address] in U nivers (LASTACAFT) 5-21 each eye. ity of 0.25 % Drop 22:05: [place] [address] [facility] CYCLOSPOR[address] in U nivers E (RESTASIS 5-21 each eye. ity of OPHTHALMIC) 22:05: [place] [address] [facility] vitamin E 0 Yes 1000U Take 1,000 U nivers 1,000 unit 5-21 Units by ity o f capsule 22:05: mouth [place] [address] daily. Medical Branch alcaftadine [address] in [facility] nivers (LASTACAFT) 5-21 each eye. ity of 0.25 % Drop 22:05: [place] [address] [facility] Branch CYCLOSPORIN [address] in [facility] n[facility] E (RESTASIS 5-21 each eye. ity of OPHTHALMIC) 22:05: [place] [address] [facility] vitamin E 0 Yes 1000U Take 1,000 U nivers 1,000 unit 5-21 Units by ity o f capsule 22:05: mouth [place] [address] daily. Medical Branch alcaftadine [address] in [facility] nivers (LASTACAFT) 5-21 each eye. ity of 0.25 % Drop 22:05: [place] [address] [facility] CYCLOSPORIN [address] in [facility] n[facility] E (RESTASIS 5-21 each eye. ity of OPHTHALMIC) 22:05: [place] [address] [facility] vitamin E 2020-0 Yes 1000U Take 1,000 U nivers 1,000 unit 5-21 Units by ity o f capsule 22:05: mouth [place] [address] daily. Medical Branch alcaftadine 2020-[address] in [facility] nivers (LASTACAFT) 5-21 each eye. ity of 0.25 % Drop 22:05: [place] [address] [facility] Branch CYCLOSPORIN 2020-[address] in [facility] n[facility] E (RESTASIS 5-21 each eye. ity of OPHTHALMIC) 22:05: [place] [address] [facility] vitamin E 2020-0 Yes 1000U Take 1,000 U nivers 1,000 unit 5-21 Units by ity o f capsule 22:05: mouth [place] [address] daily. Medical Branch alcaftadine 2020-[address] in [facility] nivers (LASTACAFT) 5-21 each eye. ity of 0.25 % Drop 22:05: [place] [address] [facility] Branch CYCLOSPORIN 2020-[address] in [facility] E (RESTASIS 5-21 each eye. ity of OPHTHALMIC) 22:05: [place] [address] [facility] vitamin E 2020-0 Yes 1000U Take 1,000 U nivers 1,000 unit 5-21 Units by ity o f capsule 22:05: mouth [place] [address] daily. Medical Branch alcaftadine 2020-[address] in [facility] nivers (LASTACAFT) 5-21 each eye. ity of 0.25 % Drop 22:05: [place] [address] [facility] CYCLOSPORIN [address] in [facility] E (RESTASIS 5-21 each eye. ity of OPHTHALMIC) 22:05: [place] [address] [facility] vitamin E 0 Yes 1000U Take 1,000 U nivers 1,000 unit 5-21 Units by ity o f capsule 22:05: mouth [place] [address] daily. Medical Branch alcaftadine [address] in [facility] nivers (LASTACAFT) 5-21 each eye. ity of 0.25 % Drop 22:05: [place] [address] [facility] CYCLOSPORIN 2020-[address] in [facility] n[facility] E (RESTASIS 5-21 each eye. ity of OPHTHALMIC) 22:05: [place] [address] [facility] vitamin E 2020-0 Yes 1000U Take 1,000 U nivers 1,000 unit 5-21 Units by ity o f capsule 22:05: mouth [place] [address] daily. Medical Branch alcaftadine 2020-[address] in [facility] nivers (LASTACAFT) 5-21 each eye. ity of 0.25 % Drop 22:05: [place] [address] [facility] CYCLOSPORIN 2020-[address] in [facility] nivers E (RESTASIS 5-21 each eye. ity of OPHTHALMIC) 22:05: [place] [address] [facility] vitamin E 2020-0 Yes 1000U Take 1,000 U nivers 1,000 unit 5-21 Units by ity o f capsule 22:05: mouth [place] [address] daily. Medical Branch alcaftadine 2020-[address] in [facility] nivers (LASTACAFT) 5-21 each eye. ity of 0.25 % Drop 22:05: [place] [address] [facility] CYCLOSPORIN 2020-[address] in [facility] n[facility] E (RESTASIS 5-21 each eye. ity of OPHTHALMIC) 22:05: [place] [address] [facility] vitamin E 2020-0 Yes 1000U Take 1,000 U nivers 1,000 unit 5-21 Units by ity o f capsule 22:05: mouth [place] [address] daily. Medical Branch alcaftadine 2020-[address] in [facility]ivers (LASTACAFT) 5-21 each eye. ity of 0.25 % Drop 22:05: [place] [address] [facility] CYCLOSPORIN 2020-[address] in [facility] E (RESTASIS 5-21 each eye. ity of OPHTHALMIC) 22:05: [place] [address] [facility] vitamin E 2020-0 Yes 1000U Take 1,000 U nivers 1,000 unit 5-21 Units by ity o f capsule 22:05: mouth [place] [address] daily. Medical Branch alcaftadine [address] in [facility]ivers (LASTACAFT) 5-21 each eye. ity of 0.25 % Drop 22:05: [place] [address] [facility] CYCLOSPORIN 2020-[address] in [facility] n[facility] E (RESTASIS 5-21 each eye. ity of OPHTHALMIC) 22:05: [place] [address] [facility] vitamin E 2020-0 Yes 1000U Take 1,000 U nivers 1,000 unit 5-21 Units by ity o f capsule 22:05: mouth [place] [address] daily. Medical Branch alcaftadine [address] in [facility]ivers (LASTACAFT) 5-21 each eye. ity of 0.25 % Drop 22:05: [place] [address] [facility] CYCLOSPORIN 2020-[address] in [facility] E (RESTASIS 5-21 each eye. ity of OPHTHALMIC) 22:05: [place] [address] [facility] vitamin E 2020-0 Yes 1000U Take 1,000 U nivers 1,000 unit 5-21 Units by ity o f capsule 22:05: mouth [place] 47 daily. Medical Branch alcaftadine 2020-[address] in [facility] nivers (LASTACAFT) 5-21 each eye. ity of 0.25 % Drop 22:05: [place] [address] [facility] CYCLOSPORIN 2020-[address] in [facility] n[facility] E (RESTASIS 5-21 each eye. ity of OPHTHALMIC) 22:05: [place] 47 [facility] vitamin E Yes 1000U Take 1,000 U nivers 1,000 unit 5-21 Units by ity o f capsule 22:05: mouth [place] 47 daily. Medical Branch alcaftadine Yes Place in U nivers (LASTACAFT) 5-21 each eye. ity of 0.25 % Drop 22:05: [place] 47 [facility] CYCLOSPORIN Yes Place in U n[facility] E (RESTASIS 5-21 each eye. ity of OPHTHALMIC) 22:05: [place] [facility] vitamin E Yes 1000U Take 1,000 U nivers 1,000 unit 5-21 Units by ity o f capsule 22:05: mouth [place] 47 daily. Medical Branch lisinopriL Yes [id number] 10mg Take 0.5 [facility] 20 mg 5-21 tablets by ity of tablet 00:00: mouth [place] 00 daily. Medical Branch lisinopriL Yes [id number] 10mg Take 0.5 [facility] 20 mg 5-21 tablets by ity of tablet 00:00: mouth [place] 00 daily. Medical Branch lisinopriL Yes [id number] 10mg Take 0.5 [facility] 20 mg 5-21 tablets by ity of tablet 00:00: mouth [place] 00 daily. Medical Branch lisinopriL Yes [id number] 10mg Take 0.5 [facility] 20 mg 5-21 tablets by ity of tablet 00:00: mouth [place] 00 daily. Medical Branch lisinopriL Yes [id number] 10mg Take 0.5 [facility] 20 mg 5-21 tablets by ity of tablet 00:00: mouth [place] 00 daily. Medical Branch lisinopriL 0 Yes [id number] 10mg Take 0.5 [facility] 20 mg 5-21 tablets by ity of tablet 00:00: mouth [place] 00 daily. Medical Branch lisinopriL 0 Yes [id number] 10mg Take 0.5 [facility] 20 mg 5-21 tablets by ity of tablet 00:00: mouth [place] 00 daily. Medical Branch lisinopriL 0 2020- No [id number] 10mg Take 0.5 [facility] 20 mg 5-21 06-22 tablets by ity of tablet 00:00: 00:00 mouth [place] 00 :00 daily. Medical Branch lisinopriL 2020-0 2020- No [id number] 10mg Take 0.5 [facility] 20 mg 5-21 06-22 tablets by ity of tablet 00:00: 00:00 mouth [place] 00 :00 daily. Medical Branch Blood-Gluco 2020-0 Yes [id number] Check [facility] se Meter 5-11 glucose ity of Kit 00:00: once daily [place] 00 before Medical breakfast; Branch ICD-10 code E11.9 blood sugar 0 Yes [id number] Check [facility] diagnostic 5-11 glucose ity of (BLOOD 00:00: once daily [place] GLUCOSE 00 before Medical TEST) strip breakfast; Br anch ICD-10 code E11.9 Lancets 0 Yes [id number] Check [facility] ers Misc 5-11 glucose ity of 00:00: once daily [place] 00 before Medical breakfast; Branch ICD-10 code E11.9 pravastatin 2020-0 Yes [id number] 10mg Take 1 [facility] 10 mg 5-11 [id number] tablet by ity of tablet 00:00: mouth [place] 00 every Medical other day. Branch metformin 0 Yes [id number] 500mg Take 1 U nivers ER 500 mg 5-11 tablet by ity o f 24 hr 00:00: mouth 2 [place] tablet 00 (two) Medical times Branch daily with meals. Blood-Gluco 0 Yes [id number] Check [facility] se Meter 5-11 glucose ity of Kit 00:00: once daily [place] 00 before Medical breakfast; Branch ICD-10 code E11.9 blood sugar 0 Yes [id number] Check [facility] diagnostic 5-11 glucose ity of (BLOOD 00:00: once daily [place] GLUCOSE 00 before Medical TEST) strip breakfast; Br anch ICD-10 code E11.9 Lancets 2020-0 Yes [id number] Check [facility] ers Misc 5-11 glucose ity of 00:00: once daily [place] 00 before Medical breakfast; Branch ICD-10 code E11.9 pravastatin 2020-0 Yes [id number] 10mg Take 1 [facility] 10 mg 5-11 [id number] tablet by ity of tablet 00:00: mouth [place] 00 every Medical other day. Branch metformin 2020-0 Yes [id number] 500mg Take 1 U nivers ER 500 mg 5-11 tablet by ity o f 24 hr 00:00: mouth 2 [place] tablet 00 (two) Medical times Branch daily with meals. Blood-Gluco 2020-0 Yes [id number] Check [facility] se Meter 5-11 glucose ity of Kit 00:00: once daily [place] 00 before Medical breakfast; Branch ICD-10 code E11.9 blood sugar 2020-0 Yes [id number] Check [facility] diagnostic 5-11 glucose ity of (BLOOD 00:00: once daily [place] GLUCOSE 00 before Medical TEST) strip breakfast; Br anch ICD-10 code E11.9 Lancets 2020-0 Yes [id number] Check [facility] ers Misc 5-11 glucose ity of 00:00: once daily [place] 00 before Medical breakfast; Branch ICD-10 code E11.9 pravastatin 2020-0 Yes [id number] 10mg Take 1 [facility] 10 mg 5-11 [id number] tablet by ity of tablet 00:00: mouth [place] 00 every Medical other day. Branch metformin 2020-0 Yes [id number] 500mg Take 1 U nivers ER 500 mg 5-11 tablet by ity o f 24 hr 00:00: mouth 2 [place] tablet 00 (two) Medical times Branch daily with meals. Blood-Gluco 2020-0 Yes [id number] Check [facility] se Meter 5-11 glucose ity of Kit 00:00: once daily [place] 00 before Medical breakfast; Branch ICD-10 code E11.9 blood sugar 2020-0 Yes [id number] Check [facility] diagnostic 5-11 glucose ity of (BLOOD 00:00: once daily [place] GLUCOSE 00 before Medical TEST) strip breakfast; Br anch ICD-10 code E11.9 Lancets 2020-0 Yes [id number] Check [facility] ers Misc 5-11 glucose ity of 00:00: once daily [place] 00 before Medical breakfast; Branch ICD-10 code E11.9 pravastatin 2020-0 Yes [id number] 10mg Take 1 [facility] 10 mg 5-11 [id number] tablet by ity of tablet 00:00: mouth [place] 00 every Medical other day. Branch metformin 2020-0 Yes [id number] 500mg Take 1 U nivers ER 500 mg 5-11 tablet by ity o f 24 hr 00:00: mouth 2 [place] tablet 00 (two) Medical times Branch daily with meals. Blood-Gluco 2020-0 Yes [id number] Check [facility] se Meter 5-11 glucose ity of Kit 00:00: once daily [place] 00 before Medical breakfast; Branch ICD-10 code E11.9 blood sugar 2020-0 Yes [id number] Check [facility] diagnostic 5-11 glucose ity of (BLOOD 00:00: once daily [place] GLUCOSE 00 before Medical TEST) strip breakfast; Br oma ICD-10 code E11.9 Lancets 2020-0 Yes [id number] Check [facility] ers Misc 5-11 glucose ity of 00:00: once daily [place] 00 before Medical breakfast; Branch ICD-10 code E11.9 pravastatin 2020-0 Yes [id number] 10mg Take 1 [facility] 10 mg 5-11 [id number] tablet by ity of tablet 00:00: mouth [place] 00 every Medical other day. Branch metformin 2020-0 Yes [id number] 500mg Take 1 U nivers ER 500 mg 5-11 tablet by ity o f 24 hr 00:00: mouth 2 [place] tablet 00 (two) Medical times Branch daily with meals. Blood-Gluco 2020-0 Yes [id number] Check [facility] se Meter 5-11 glucose ity of Kit 00:00: once daily [place] 00 before Medical breakfast; Branch ICD-10 code E11.9 blood sugar 2020-0 Yes [id number] Check [facility] diagnostic 5-11 glucose ity of (BLOOD 00:00: once daily [place] GLUCOSE 00 before Medical TEST) strip breakfast; Br anch ICD-10 code E11.9 Lancets 2020-0 Yes [id number] Check [facility] ers Misc 5-11 glucose ity of 00:00: once daily [place] 00 before Medical breakfast; Branch ICD-10 code E11.9 pravastatin 2020-0 Yes [id number] 10mg Take 1 [facility] 10 mg 5-11 [id number] tablet by ity of tablet 00:00: mouth [place] 00 every Medical other day. Branch metformin 2020-0 Yes [id number] 500mg Take 1 U nivers ER 500 mg 5-11 tablet by ity o f 24 hr 00:00: mouth 2 [place] tablet 00 (two) Medical times Branch daily with meals. Blood-Gluco 2020-0 Yes [id number] Check [facility] se Meter 5-11 glucose ity of Kit 00:00: once daily [place] 00 before Medical breakfast; Branch ICD-10 code E11.9 blood sugar 2020-0 Yes [id number] Check [facility] diagnostic 5-11 glucose ity of (BLOOD 00:00: once daily [place] GLUCOSE 00 before Medical TEST) strip breakfast; Br anch ICD-10 code E11.9 Lancets Yes [id number] Check [facility] ers Misc 5-11 glucose ity of 00:00: once daily [place] 00 before Medical breakfast; Branch ICD-10 code E11.9 pravastatin Yes [id number] 10mg Take 1 [facility] 10 mg 5-11 [id number] tablet by ity of tablet 00:00: mouth [place] 00 every Medical other day. Branch metformin Yes [id number] 500mg Take 1 U nivers ER 500 mg 5-11 tablet by ity o f 24 hr 00:00: mouth 2 [place] tablet 00 (two) Medical times Branch daily with meals. Blood-Gluco Yes [id number] Check [facility] se Meter 5-11 glucose ity of Kit 00:00: once daily [place] 00 before Medical breakfast; Branch ICD-10 code E11.9 blood sugar Yes [id number] Check [facility] diagnostic 5-11 glucose ity of (BLOOD 00:00: once daily [place] GLUCOSE 00 before Medical TEST) strip breakfast; Br anch ICD-10 code E11.9 Lancets Yes [id number] Check [facility] ers Misc 5-11 glucose ity of 00:00: once daily [place] 00 before Medical breakfast; Branch ICD-10 code E11.9 pravastatin Yes [id number] 10mg Take 1 [facility] 10 mg 5-11 [id number] tablet by ity of tablet 00:00: mouth [place] 00 every Medical other day. Branch metformin 2020- Yes [id number] 500mg Take 1 U nivers ER 500 mg 5-11 tablet by ity o f 24 hr 00:00: mouth 2 [place] tablet 00 (two) Medical times Branch daily with meals. Blood-Gluco Yes [id number] Check [facility] se Meter 5-11 glucose ity of Kit 00:00: once daily [place] 00 before Medical breakfast; Branch ICD-10 code E11.9 blood sugar Yes [id number] Check [facility] diagnostic 5-11 glucose ity of (BLOOD 00:00: once daily [place] GLUCOSE 00 before Medical TEST) strip breakfast; Br anch ICD-10 code E11.9 Lancets Yes [id number] Check [facility] ers Misc 5-11 glucose ity of 00:00: once daily [place] 00 before Medical breakfast; Branch ICD-10 code E11.9 pravastatin 2020-0 Yes [id number] 10mg Take 1 [facility] 10 mg 5-11 [id number] tablet by ity of tablet 00:00: mouth [place] 00 every Medical other day. Branch metformin 2020-0 Yes [id number] 500mg Take 1 U nivers ER 500 mg 5-11 tablet by ity o f 24 hr 00:00: mouth 2 [place] tablet 00 (two) Medical times Branch daily with meals. Blood-Gluco 2020-0 Yes [id number] Check [facility] se Meter 5-11 glucose ity of Kit 00:00: once daily [place] 00 before Medical breakfast; Branch ICD-10 code E11.9 blood sugar 2020-0 Yes [id number] Check [facility] diagnostic 5-11 glucose ity of (BLOOD 00:00: once daily [place] GLUCOSE 00 before Medical TEST) strip breakfast; Br anch ICD-10 code E11.9 Lancets 2020-0 Yes [id number] Check [facility] ers Misc 5-11 glucose ity of 00:00: once daily [place] 00 before Medical breakfast; Branch ICD-10 code E11.9 pravastatin 2020-0 Yes [id number] 10mg Take 1 [facility] 10 mg 5-11 [id number] tablet by ity of tablet 00:00: mouth [place] 00 every Medical other day. Branch metformin 2020-0 Yes [id number] 500mg Take 1 U nivers ER 500 mg 5-11 tablet by ity o f 24 hr 00:00: mouth 2 [place] tablet 00 (two) Medical times Branch daily with meals. Blood-Gluco 2020-0 Yes [id number] Check [facility] se Meter 5-11 glucose ity of Kit 00:00: once daily [place] 00 before Medical breakfast; Branch ICD-10 code E11.9 blood sugar 2020-0 Yes [id number] Check [facility] diagnostic 5-11 glucose ity of (BLOOD 00:00: once daily [place] GLUCOSE 00 before Medical TEST) strip breakfast; Br anch ICD-10 code E11.9 Lancets 2020-0 Yes [id number] Check [facility] ers Misc 5-11 glucose ity of 00:00: once daily [place] 00 before Medical breakfast; Branch ICD-10 code E11.9 pravastatin 2020-0 Yes [id number] 10mg Take 1 [facility] 10 mg 5-11 [id number] tablet by ity of tablet 00:00: mouth [place] 00 every Medical other day. Branch metformin 2020-0 Yes [id number] 500mg Take 1 U nivers ER 500 mg 5-11 tablet by ity o f 24 hr 00:00: mouth 2 [place] tablet 00 (two) Medical times Branch daily with meals. Blood-Gluco 2020-0 Yes [id number] Check [facility] se Meter 5-11 glucose ity of Kit 00:00: once daily [place] 00 before Medical breakfast; Branch ICD-10 code E11.9 blood sugar 2020-0 Yes [id number] Check [facility] diagnostic 5-11 glucose ity of (BLOOD 00:00: once daily [place] GLUCOSE 00 before Medical TEST) strip breakfast; Br anch ICD-10 code E11.9 Lancets 0 Yes [id number] Check [facility] ers Misc 5-11 glucose ity of 00:00: once daily [place] 00 before Medical breakfast; Branch ICD-10 code E11.9 pravastatin 2020-0 Yes [id number] 10mg Take 1 [facility] 10 mg 5-11 [id number] tablet by ity of tablet 00:00: mouth [place] 00 every Medical other day. Branch metformin 2020-0 Yes [id number] 500mg Take 1 U nivers ER 500 mg 5-11 tablet by ity o f 24 hr 00:00: mouth 2 [place] tablet 00 (two) Medical times Branch daily with meals. Blood-Gluco 2020-0 Yes [id number] Check [facility] se Meter 5-11 glucose ity of Kit 00:00: once daily [place] 00 before Medical breakfast; Branch ICD-10 code E11.9 blood sugar 2020-0 Yes [id number] Check [facility] diagnostic 5-11 glucose ity of (BLOOD 00:00: once daily [place] GLUCOSE 00 before Medical TEST) strip breakfast; Br anch ICD-10 code E11.9 Lancets 2020-0 Yes [id number] Check [facility] ers Misc 5-11 glucose ity of 00:00: once daily [place] 00 before Medical breakfast; Branch ICD-10 code E11.9 pravastatin 2020-0 Yes [id number] 10mg Take 1 [facility] 10 mg 5-11 [id number] tablet by ity of tablet 00:00: mouth [place] 00 every Medical other day. Branch metformin 2020-0 Yes [id number] 500mg Take 1 U nivers ER 500 mg 5-11 tablet by ity o f 24 hr 00:00: mouth 2 [place] tablet 00 (two) Medical times Branch daily with meals. Blood-Gluco 2020-0 Yes [id number] Check [facility] se Meter 5-11 glucose ity of Kit 00:00: once daily [place] 00 before Medical breakfast; Branch ICD-10 code E11.9 blood sugar 2020-0 Yes [id number] Check [facility] diagnostic 5-11 glucose ity of (BLOOD 00:00: once daily [place] GLUCOSE 00 before Medical TEST) strip breakfast; Br anch ICD-10 code E11.9 Lancets 2020-0 Yes [id number] Check [facility] ers Misc 5-11 glucose ity of 00:00: once daily [place] 00 before Medical breakfast; Branch ICD-10 code E11.9 pravastatin 2020-0 Yes [id number] 10mg Take 1 [facility] 10 mg 5-11 [id number] tablet by ity of tablet 00:00: mouth [place] 00 every Medical other day. Branch metformin 2020-0 Yes [id number] 500mg Take 1 U nivers ER 500 mg 5-11 tablet by ity o f 24 hr 00:00: mouth 2 [place] tablet 00 (two) Medical times Branch daily with meals. Blood-Gluco 2020-0 Yes [id number] Check [facility] se Meter 5-11 glucose ity of Kit 00:00: once daily [place] 00 before Medical breakfast; Branch ICD-10 code E11.9 blood sugar 2020-0 Yes [id number] Check [facility] diagnostic 5-11 glucose ity of (BLOOD 00:00: once daily [place] GLUCOSE 00 before Medical TEST) strip breakfast; Br anch ICD-10 code E11.9 Lancets 2020-0 Yes [id number] Check [facility] ers Misc 5-11 glucose ity of 00:00: once daily [place] 00 before Medical breakfast; Branch ICD-10 code E11.9 pravastatin 2020-0 Yes [id number] 10mg Take 1 [facility] 10 mg 5-11 [id number] tablet by ity of tablet 00:00: mouth [place] 00 every Medical other day. Branch metformin 2020-0 Yes [id number] 500mg Take 1 U nivers ER 500 mg 5-11 tablet by ity o f 24 hr 00:00: mouth 2 [place] tablet 00 (two) Medical times Branch daily with meals. Blood-Gluco 2020-0 Yes [id number] Check [facility] se Meter 5-11 glucose ity of Kit 00:00: once daily [place] 00 before Medical breakfast; Branch ICD-10 code E11.9 blood sugar 2020-0 Yes [id number] Check [facility] diagnostic 5-11 glucose ity of (BLOOD 00:00: once daily [place] GLUCOSE 00 before Medical TEST) strip breakfast; Br oma ICD-10 code E11.9 Lancets 2020-0 Yes [id number] Check [facility] ers Misc 5-11 glucose ity of 00:00: once daily [place] 00 before Medical breakfast; Branch ICD-10 code E11.9 pravastatin 2020-0 Yes [id number] 10mg Take 1 [facility] 10 mg 5-11 [id number] tablet by ity of tablet 00:00: mouth [place] 00 every Medical other day. Branch metformin 2020-0 Yes [id number] 500mg Take 1 U nivers ER 500 mg 5-11 tablet by ity o f 24 hr 00:00: mouth 2 [place] tablet 00 (two) Medical times Branch daily with meals. Blood-Gluco 2020-0 Yes [id number] Check [facility] se Meter 5-11 glucose ity of Kit 00:00: once daily [place] 00 before Medical breakfast; Branch ICD-10 code E11.9 blood sugar 0 Yes [id number] Check [facility] diagnostic 5-11 glucose ity of (BLOOD 00:00: once daily [place] GLUCOSE 00 before Medical TEST) strip breakfast; Br oma ICD-10 code E11.9 Lancets 2020-0 Yes [id number] Check [facility] ers Misc 5-11 glucose ity of 00:00: once daily [place] 00 before Medical breakfast; Branch ICD-10 code E11.9 pravastatin 2020-0 Yes [id number] 10mg Take 1 [facility] 10 mg 5-11 [id number] tablet by ity of tablet 00:00: mouth [place] 00 every Medical other day. Branch metformin 2020-0 Yes [id number] 500mg Take 1 U nivers ER 500 mg 5-11 tablet by ity o f 24 hr 00:00: mouth 2 [place] tablet 00 (two) Medical times Branch daily with meals. Blood-Gluco 2020-0 Yes [id number] Check [facility] se Meter 5-11 glucose ity of Kit 00:00: once daily [place] 00 before Medical breakfast; Branch ICD-10 code E11.9 blood sugar 2020-0 Yes [id number] Check [facility] diagnostic 5-11 glucose ity of (BLOOD 00:00: once daily [place] GLUCOSE 00 before Medical TEST) strip breakfast; Br anch ICD-10 code E11.9 Lancets 0 Yes [id number] Check [facility] ers Misc 5-11 glucose ity of 00:00: once daily [place] 00 before Medical breakfast; Branch ICD-10 code E11.9 pravastatin 2020-0 Yes [id number] 10mg Take 1 [facility] 10 mg 5-11 [id number] tablet by ity of tablet 00:00: mouth [place] 00 every Medical other day. Branch metformin Yes [id number] 500mg Take 1 U nivers ER 500 mg 5-11 tablet by ity o f 24 hr 00:00: mouth 2 [place] tablet 00 (two) Medical times [place] daily with meals. Blood-Gluco Yes [id number] Check [facility] se Meter 5-11 glucose ity of Kit 00:00: once daily [place] 00 before Medical breakfast; Branch ICD-10 code E11.9 blood sugar 2020-0 Yes [id number] Check [facility] diagnostic 5-11 glucose ity of (BLOOD 00:00: once daily [place] GLUCOSE 00 before Medical TEST) strip breakfast; Br anch ICD-10 code E11.9 Lancets 0 Yes [id number] Check [facility] ers Misc 5-11 glucose ity of 00:00: once daily [place] 00 before Medical breakfast; Branch ICD-10 code E11.9 pravastatin 0 Yes [id number] 10mg Take 1 [facility] 10 mg 5-11 [id number] tablet by ity of tablet 00:00: mouth [place] 00 every Medical other day. Branch metformin 2020-0 Yes [id number] 500mg Take 1 U nivers ER 500 mg 5-11 tablet by ity o f 24 hr 00:00: mouth 2 [place] tablet 00 (two) Medical times [place] daily with meals. LEVOTHYROXI 2020- Yes [id number] TAKE 1 [facility] NE 50 mcg 5-05 TABLET BY ity o f tablet 00:00: MOUTH [place] 00 EVERY DAY Medical IN THE [place] MORNING LEVOTHYROXI 2020-0 Yes [id number] TAKE 1 [facility] [place] 50 mcg 5-05 TABLET BY ity o f tablet 00:00: MOUTH [place] 00 EVERY DAY Medical IN THE [place] MORNING LEVOTHYROXI 2020-0 Yes [id number] TAKE 1 [facility] NE 50 mcg 5-05 TABLET BY ity o f tablet 00:00: MOUTH [place] 00 EVERY DAY Medical IN THE [facility] LEVOTHYROXI Yes [id number] TAKE 1 [facility] NE 50 mcg 5-05 TABLET BY ity o f tablet 00:00: MOUTH [place] 00 EVERY DAY Medical IN THE [facility] LEVOTHYROXI Yes [id number] TAKE 1 [facility] [place] 50 mcg 5-05 TABLET BY ity o f tablet 00:00: MOUTH [place] 00 EVERY DAY Medical IN THE [facility] LEVOTHYROXI Yes [id number] TAKE 1 [facility] [place] 50 mcg 5-05 TABLET BY ity o f tablet 00:00: MOUTH [place] 00 EVERY DAY Medical IN THE [facility] LEVOTHYROXI Yes [id number] TAKE 1 [facility] [place] 50 mcg 5-05 TABLET BY ity o f tablet 00:00: MOUTH [place] 00 EVERY DAY Medical IN THE [facility] LEVOTHYROXI Yes [id number] TAKE 1 [facility] [place] 50 mcg 5-05 TABLET BY ity o f tablet 00:00: MOUTH [place] 00 EVERY DAY Medical IN THE [facility] LEVOTHYROXI Yes [id number] TAKE 1 [facility] [place] 50 mcg 5-05 TABLET BY ity o f tablet 00:00: MOUTH [place] 00 EVERY DAY Medical IN THE [facility] LEVOTHYROXI Yes [id number] TAKE 1 [facility] NE 50 mcg 5-05 TABLET BY ity o f tablet 00:00: MOUTH [place] 00 EVERY DAY Medical IN THE [facility] LEVOTHYROXI Yes [id number] TAKE 1 [facility] NE 50 mcg 5-05 TABLET BY ity o f tablet 00:00: MOUTH [place] 00 EVERY DAY Medical IN THE [facility] LEVOTHYROXI 2020- No [id number] TAKE 1 [facility] NE 50 mcg 5-05 - TABLET BY ity of tablet 00:00: 00:00 MOUTH [place] 00 :00 EVERY DAY Medical IN THE [facility] metformin Yes [facility] ER 750 mg 5-03 ity of 24 hr 00:00: [place] tablet 00 [facility] metformin 2020- Yes Univers ER 750 mg 5-03 ity of 24 hr 00:00: [place] tablet 00 [facility] metformin 2020- Yes [facility] ER 750 mg 5-03 ity of 24 hr 00:00: [place] tablet 00 [facility] metformin 2020-0 Yes [facility] ER 750 mg 5-03 ity of 24 hr 00:00: [place] tablet 00 [facility] metformin 2021-0 Yes [facility] ER 750 mg 5-03 ity of 24 hr 00:00: [place] tablet 00 Medical Branch metformin 2021-0 Yes [facility] ER 750 mg 5-03 ity of 24 hr 00:00: [place] tablet 00 Medical Branch TRAZODONE 1-0 Yes [id number] TAKE 1 U nivers 100 mg 3-18 TABLET BY ity of tablet 00:00: MOUTH 00 EVERY DAY Medical AT BEDTIME Branch NEEDED FOR INSOMNIA TRAZODONE 2020-0 Yes [id number] TAKE 1 U nivers 100 mg 3-18 TABLET BY ity of tablet 00:00: MOUTH EVERY DAY Medical AT BEDTIME Branch NEEDED FOR INSOMNIA TRAZODONE 2020-0 Yes [id number] TAKE 1 U nivers 100 mg 3-18 TABLET BY ity of tablet 00:00: MOUTH EVERY DAY Medical AT BEDTIME Branch NEEDED FOR INSOMNIA TRAZODONE 2020-0 Yes [id number] TAKE 1 U nivers 100 mg 3-18 TABLET BY ity of tablet 00:00: MOUTH EVERY DAY Medical AT BEDTIME Branch NEEDED FOR INSOMNIA TRAZODONE 1-0 Yes [id number] TAKE 1 U nivers 100 mg 3-18 TABLET BY ity of tablet 00:00: MOUTH EVERY DAY Medical AT BEDTIME Branch NEEDED FOR INSOMNIA TRAZODONE 1-0 Yes [id number] TAKE 1 U nivers 100 mg 3-18 TABLET BY ity of tablet 00:00: MOUTH EVERY DAY Medical AT BEDTIME Branch NEEDED FOR INSOMNIA TRAZODONE 1-0 Yes [id number] TAKE 1 U nivers 100 mg 3-18 TABLET BY ity of tablet 00:00: MOUTH 00 EVERY DAY Medical AT BEDTIME Branch NEEDED FOR INSOMNIA TRAZODONE 1-0 Yes [id number] TAKE 1 U nivers 100 mg 3-18 TABLET BY ity of tablet 00:00: MOUTH 00 EVERY DAY Medical AT BEDTIME Branch NEEDED FOR INSOMNIA TRAZODONE 1-0 Yes [id number] TAKE 1 U nivers 100 mg 3-18 TABLET BY ity of tablet 00:00: MOUTH EVERY DAY Medical AT BEDTIME Branch NEEDED FOR INSOMNIA TRAZODONE 2021-0 Yes [id number] TAKE 1 [facility] nivers 100 mg 3-18 TABLET BY ity of tablet 00:00: MOUTH EVERY DAY Medical AT BEDTIME Branch NEEDED FOR INSOMNIA TRAZODONE 2020-0 Yes [id number] TAKE 1 [facility] nivers 100 mg 3-18 TABLET BY ity of tablet 00:00: MOUTH EVERY DAY Medical AT BEDTIME Branch NEEDED FOR INSOMNIA TRAZODONE 2020-0 Yes [id number] TAKE 1 [facility] nivers 100 mg 3-18 TABLET BY ity of tablet 00:00: MOUTH EVERY DAY Medical AT BEDTIME Branch NEEDED FOR INSOMNIA TRAZODONE 2020-0 Yes [id number] TAKE 1 [facility] nivers 100 mg 3-18 TABLET BY ity of tablet 00:00: EVERY DAY Medical AT BEDTIME Branch NEEDED FOR INSOMNIA TRAZODONE 2020-0 Yes [id number] TAKE 1 [facility] nivers 100 mg 3-18 TABLET BY ity of tablet 00:00: EVERY DAY Medical AT BEDTIME Branch NEEDED FOR INSOMNIA TRAZODONE 2020-0 Yes [id number] TAKE 1 [facility] nivers 100 mg 3-18 TABLET BY ity of tablet 00:00: EVERY DAY Medical AT BEDTIME Branch NEEDED FOR INSOMNIA TRAZODONE 1-0 Yes [id number] TAKE 1 [facility] nivers 100 mg 3-18 TABLET BY ity of tablet 00:00: EVERY DAY Medical AT BEDTIME Branch NEEDED FOR INSOMNIA TRAZODONE 1-0 Yes [id number] TAKE 1 [facility] nivers 100 mg 3-18 TABLET BY ity of tablet 00:00: EVERY DAY Medical AT BEDTIME Branch NEEDED FOR INSOMNIA TRAZODONE 1-0 Yes [id number] TAKE 1 [facility]ivers 100 mg 3-18 TABLET BY ity of tablet 00:00: MOUTH EVERY DAY Medical AT BEDTIME Branch NEEDED FOR INSOMNIA TRAZODONE 1-0 Yes [id number] TAKE 1 [facility] nivers 100 mg 3-18 TABLET BY ity of tablet 00:00: MOUTH EVERY DAY Medical AT BEDTIME Branch NEEDED FOR INSOMNIA TRAZODONE 1-0 Yes [id number] TAKE 1 [facility] nivers 100 mg 3-18 TABLET BY ity of tablet 00:00: MOUTH EVERY DAY Medical AT BEDTIME [place] NEEDED FOR INSOMNIA TRAZODONE Yes [id number] TAKE 1 U nivers 100 mg 3-18 TABLET BY ity of tablet 00:00: MOUTH EVERY DAY Medical AT BEDTIME [place] NEEDED FOR INSOMNIA metroNIDAZO 2020- No 500mg 500 mg, IV [facility] LE in NaCl 11-14 Infusion, ity of (iso-os) 21:45: 09:44 ONCE, 1 [place] (FLAGYL 00 :00 dose, [facility] RTU 11/14/20 at [facility] IV infusion 1545, 100 500 mg mL
Reas on for Anti-Infec tive: Documented Infection< br>Documen cesar Infection Site: Abdominal< br>Duratio n of Therapy: Other (see Comments) iohexol 2020- No 100mL 100 mL, Unive rs (OMNIPAQUE 11-14 Intravenou it y of 350 20:00: 19:45 s, ONCE, 1 [place] BULK- 00 :00 dose, [facility] mL) 11/14/20 at [place] injection 1400, 100 mL Routine ciprofloxac Yes [id number] 500mg Take 1 [facility] in HCl 500 2-28 tablet by ity of mg tablet 00:00: mouth (two) Medical times Branch daily. metroNIDAZO Yes [id number] 500mg Take 1 [facility] LE 500 mg 2-28 tablet by ity o f tablet 00:00: mouth (two) Medical times Branch daily. ciprofloxac 2020-0 Yes [id number] 500mg Take 1 [facility] in HCl 500 2-28 tablet by ity of mg tablet 00:00: mouth (two) Medical times Branch daily. metroNIDAZO 2020-0 Yes [id number] 500mg Take 1 [facility] LE 500 mg 2-28 tablet by ity o f tablet 00:00: mouth [place] (two) Medical times Branch daily. ciprofloxac 2020-0 Yes [id number] 500mg Take 1 [facility] in HCl 500 2-28 tablet by ity of mg tablet 00:00: mouth [place] (two) Medical times Branch daily. metroNIDAZO 2021-0 Yes [id number] 500mg Take 1 [facility] LE 500 mg 2-28 tablet by ity o f tablet 00:00: mouth (two) Medical times Branch daily. ciprofloxac 2021-0 Yes [id number] 500mg Take 1 [facility] in HCl 500 2-28 tablet by ity of mg tablet 00:00: mouth (two) Medical times Branch daily. metroNIDAZO 2021-0 Yes [id number] 500mg Take 1 [facility] LE 500 mg 2-28 tablet by ity o f tablet 00:00: mouth (two) Medical times Branch daily. ciprofloxac 2020-0 Yes [id number] 500mg Take 1 [facility] in HCl 500 2-28 tablet by ity of mg tablet 00:00: mouth (two) Medical times Branch daily. metroNIDAZO 1-0 Yes [id number] 500mg Take 1 [facility] LE 500 mg 2-28 tablet by ity o f tablet 00:00: mouth (two) Medical times Branch daily. ciprofloxac 2020-0 Yes [id number] 500mg Take 1 [facility] in HCl 500 2-28 tablet by ity of mg tablet 00:00: mouth (two) Medical times Branch daily. metroNIDAZO 1-0 Yes [id number] 500mg Take 1 [facility] LE 500 mg 2-28 tablet by ity o f tablet 00:00: mouth (two) Medical times Branch daily. ciprofloxac 1-0 Yes [id number] 500mg Take 1 [facility] in HCl 500 2-28 tablet by ity of mg tablet 00:00: mouth (two) Medical times Branch daily. metroNIDAZO 1-0 Yes [id number] 500mg Take 1 [facility] LE 500 mg 2-28 tablet by ity o f tablet 00:00: mouth (two) Medical times Branch daily. ciprofloxac 2021-0 Yes [id number] 500mg Take 1 [facility] in HCl 500 2-28 tablet by ity of mg tablet 00:00: mouth (two) Medical times Branch daily. metroNIDAZO 2021-0 Yes [id number] 500mg Take 1 [facility] LE 500 mg 2-28 tablet by ity o f tablet 00:00: mouth 2 (two) Medical times Branch daily. ciprofloxac 2021-0 Yes [id number] 500mg Take 1 [facility] in HCl 500 2-28 tablet by ity of mg tablet 00:00: mouth (two) Medical times Branch daily. metroNIDAZO 2021-0 Yes [id number] 500mg Take 1 [facility] LE 500 mg 2-28 tablet by ity o f tablet 00:00: mouth (two) Medical times Branch daily. ciprofloxac 2021-0 Yes [id number] 500mg Take 1 [facility] in HCl 500 2-28 tablet by ity of mg tablet 00:00: mouth (two) Medical times Branch daily. metroNIDAZO 2021-0 Yes [id number] 500mg Take 1 [facility] LE 500 mg 2-28 tablet by ity o f tablet 00:00: mouth (two) Medical times Branch daily. ciprofloxac 2021-0 Yes [id number] 500mg Take 1 [facility] in HCl 500 2-28 tablet by ity of mg tablet 00:00: mouth (two) Medical times Branch daily. metroNIDAZO 2021-0 Yes [id number] 500mg Take 1 [facility] LE 500 mg 2-28 tablet by ity o f tablet 00:00: mouth (two) Medical times Branch daily. ciprofloxac 2021-0 Yes [id number] 500mg Take 1 [facility] in HCl 500 2-28 tablet by ity of mg tablet 00:00: mouth (two) Medical times Branch daily. metroNIDAZO 2021-0 Yes [id number] 500mg Take 1 [facility] LE 500 mg 2-28 tablet by ity o f tablet 00:00: mouth (two) Medical times Branch daily. ciprofloxac 2021-0 Yes [id number] 500mg Take 1 [facility] in HCl 500 2-28 tablet by ity of mg tablet 00:00: mouth (two) Medical times Branch daily. metroNIDAZO 2021-0 Yes [id number] 500mg Take 1 [facility] LE 500 mg 2-28 tablet by ity o f tablet 00:00: mouth (two) Medical times Branch daily. ciprofloxac 2021-0 Yes [id number] 500mg Take 1 [facility] in HCl 500 2-28 tablet by ity of mg tablet 00:00: mouth (two) Medical times Branch daily. metroNIDAZO 1-0 Yes [id number] 500mg Take 1 [facility] LE 500 mg 2-28 tablet by ity o f tablet 00:00: mouth (two) Medical times Branch daily. ciprofloxac 1-0 Yes [id number] 500mg Take 1 [facility] in HCl 500 2-28 tablet by ity of mg tablet 00:00: mouth (two) Medical times Branch daily. metroNIDAZO 2020-0 Yes [id number] 500mg Take 1 [facility] LE 500 mg 2-28 tablet by ity o f tablet 00:00: mouth (two) Medical times Branch daily. ciprofloxac 2020-0 Yes [id number] 500mg Take 1 [facility] in HCl 500 2-28 tablet by ity of mg tablet 00:00: mouth (two) Medical times Branch daily. metroNIDAZO 2020-0 Yes [id number] 500mg Take 1 [facility] LE 500 mg 2-28 tablet by ity o f tablet 00:00: mouth (two) Medical times Branch daily. ciprofloxac 2020-0 Yes [id number] 500mg Take 1 [facility] in HCl 500 2-28 tablet by ity of mg tablet 00:00: mouth (two) Medical times Branch daily. metroNIDAZO 2020-0 Yes [id number] 500mg Take 1 [facility] LE 500 mg 2-28 tablet by ity o f tablet 00:00: mouth (two) Medical times Branch daily. ciprofloxac 2020-0 Yes [id number] 500mg Take 1 [facility] in HCl 500 2-28 tablet by ity of mg tablet 00:00: mouth (two) Medical times Branch daily. metroNIDAZO 1-0 Yes [id number] 500mg Take 1 [facility] LE 500 mg 2-28 tablet by ity o f tablet 00:00: mouth (two) Medical times Branch daily. ciprofloxac 1-0 Yes [id number] 500mg Take 1 [facility] in HCl 500 2-28 tablet by ity of mg tablet 00:00: mouth (two) Medical times Branch daily. metroNIDAZO 2020-0 Yes [id number] 500mg Take 1 [facility] LE 500 mg 2-28 tablet by ity o f tablet 00:00: mouth (two) Medical times Branch daily. ciprofloxac 2020-0 Yes [id number] 500mg Take 1 [facility] in HCl 500 2-28 tablet by ity of mg tablet 00:00: mouth 2 (two) Medical times Branch daily. metroNIDAZO 2020-0 Yes [id number] 500mg Take 1 [facility] LE 500 mg 2-28 tablet by ity o f tablet 00:00: mouth 2 (two) Medical times Branch daily. ciprofloxac 2020-0 Yes [id number] 500mg Take 1 [facility] in HCl 500 2-28 tablet by ity of mg tablet 00:00: mouth (two) Medical times Branch daily. metroNIDAZO 2020-0 Yes [id number] 500mg Take 1 [facility] LE 500 mg 2-28 tablet by ity o f tablet 00:00: mouth (two) Medical times Branch daily. ciprofloxac 2020-0 Yes [id number] 500mg Take 1 [facility] in HCl 500 2-28 tablet by ity of mg tablet 00:00: mouth (two) Medical times Branch daily. metroNIDAZO 2020-0 Yes [id number] 500mg Take 1 [facility] LE 500 mg 2-28 tablet by ity o f tablet 00:00: mouth (two) Medical times Branch daily. traMADoL 50 2020-0 2020- No [id number] 50mg Take 1 Uni vers mg tablet 2-12 12-08 tablet by ity of 00:00: 05:59 mouth [place] 00 :00 every 6 Medical (six) Branch hours as needed for Pain (scale 4-6) for up to 7 days. Indication s: acute pain gabapentin 2020-0 Yes [id number] 300mg Take 3 [facility] 100 mg 2-05 [id number] capsules ity of capsule 00:00: [place] mouth 3 [place] (three) Medical times Branch daily. gabapentin 2020-0 Yes [id number] 300mg Take 3 [facility] 100 mg 2-05 [id number] capsules ity of capsule 00:00: by mouth 3 [place] 00 (three) Medical times Branch daily. gabapentin 2020-0 Yes [id number] 300mg Take 3 [facility] 100 mg 2-05 [id number] capsules ity of capsule 00:00: by mouth 3 [place] 00 (three) Medical times Branch daily. gabapentin 2021-0 Yes [id number] 300mg Take 3 [facility] 100 mg 2-05 [id number] capsules ity of capsule 00:00: by mouth 3 [place] 00 (three) Medical times Branch daily. gabapentin 2021-0 Yes [id number] 300mg Take 3 [facility] 100 mg 2-05 [id number] capsules ity of capsule 00:00: by mouth 3 [place] 00 (three) Medical times Branch daily. gabapentin 2021-0 Yes [id number] 300mg Take 3 [facility] 100 mg 2-05 [id number] capsules ity of capsule 00:00: [place] mouth 3 [place] (three) Medical times Branch daily. gabapentin 2021-0 Yes [id number] 300mg Take 3 [facility] 100 mg 2-05 [id number] capsules ity of capsule 00:00: [place] mouth 3 [place] 00 (three) Medical times Branch daily. gabapentin 2021-0 Yes [id number] 300mg Take 3 [facility] 100 mg 2-05 [id number] capsules ity of capsule 00:00: by mouth 3 [place] 00 (three) Medical times Branch daily. gabapentin 2021-0 Yes [id number] 300mg Take 3 [facility] 100 mg 2-05 [id number] capsules ity of capsule 00:00: by mouth 3 [place] 00 (three) Medical times Branch daily. gabapentin 2021-0 Yes [id number] 300mg Take 3 [facility] 100 mg 2-05 [id number] capsules ity of capsule 00:00: by mouth 3 [place] 00 (three) Medical times Branch daily. gabapentin 2021-0 Yes [id number] 300mg Take 3 [facility] 100 mg 2-05 [id number] capsules ity of capsule 00:00: by mouth 3 [place] 00 (three) Medical times Branch daily. gabapentin 2021-0 Yes [id number] 300mg Take 3 [facility] 100 mg 2-05 [id number] capsules ity of capsule 00:00: by mouth 3 [place] 00 (three) Medical times Branch daily. gabapentin 2021-0 Yes [id number] 300mg Take 3 [facility] 100 mg 2-05 [id number] capsules ity of capsule 00:00: by mouth 3 [place] 00 (three) Medical times Branch daily. gabapentin 2021-0 Yes [id number] 300mg Take 3 [facility] 100 mg 2-05 [id number] capsules ity of capsule 00:00: by mouth 3 [place] 00 (three) Medical times Branch daily. gabapentin 2021-0 Yes [id number] 300mg Take 3 [facility] 100 mg 2-05 [id number] capsules ity of capsule 00:00: by mouth 3 [place] 00 (three) Medical times Branch daily. gabapentin 2021-0 Yes [id number] 300mg Take 3 [facility] 100 mg 2-05 [id number] capsules ity of capsule 00:00: by mouth 3 [place] 00 (three) Medical times Branch daily. gabapentin 2021-0 Yes [id number] 300mg Take 3 [facility] 100 mg 2-05 [id number] capsules ity of capsule 00:00: by mouth 3 [place] 00 (three) Medical times Branch daily. gabapentin 2021-0 Yes [id number] 300mg Take 3 [facility] 100 mg 2-05 [id number] capsules ity of capsule 00:00: by mouth 3 [place] 00 (three) Medical times Branch daily. gabapentin 2021-0 Yes [id number] 300mg Take 3 [facility] 100 mg 2-05 [id number] capsules ity of capsule 00:00: by mouth 3 [place] 00 (three) Medical times Branch daily. gabapentin 2021-0 Yes [id number] 300mg Take 3 [facility] 100 mg 2-05 [id number] capsules ity of capsule 00:00: by mouth 3 [place] 00 (three) Medical times Branch daily. gabapentin 2021-0 Yes [id number] 300mg Take 3 [facility] 100 mg 2-05 [id number] capsules ity of capsule 00:00: by mouth 3 [place] 00 (three) Medical times Branch daily. gabapentin 2021-0 Yes [id number] 300mg Take 3 [facility] 100 mg 2-05 [id number] capsules ity of capsule 00:00: by mouth 3 [place] 00 (three) Medical times Branch daily. gabapentin 2021-0 Yes [id number] 300mg Take 3 [facility] 100 mg 2-05 [id number] capsules ity of capsule 00:00: by mouth 3 [place] 00 (three) Medical times Branch daily. gabapentin 2021-0 Yes [id number] 300mg Take 3 [facility] 100 mg 2-05 [id number] capsules ity of capsule 00:00: by mouth 3 [place] 00 (three) Medical times Branch daily. gabapentin 2021-0 Yes [id number] 300mg Take 3 [facility] 100 mg 2-05 [id number] capsules ity of capsule 00:00: by mouth 3 [place] 00 (three) Medical times Branch daily. gabapentin 2021-0 Yes [id number] 300mg Take 3 [facility] 100 mg 2-05 [id number] capsules ity of capsule 00:00: by mouth 3 [place] 00 (three) Medical times Branch daily. gabapentin 2021-0 Yes [id number] 300mg Take 3 [facility] 100 mg 1-05 [id number] capsules ity of capsule 00:00: by mouth 3 [place] 00 (three) Medical times Branch daily. gabapentin 2021-0 Yes [id number] 300mg Take 3 [facility] 100 mg 1-05 [id number] capsules ity of capsule 00:00: by mouth 3 [place] 00 (three) Medical times Branch daily. gabapentin 2021-0 Yes [id number] 300mg Take 3 [facility] 100 mg 1-05 [id number] capsules ity of capsule 00:00: by mouth 3 [place] 00 (three) Medical times Branch daily. gabapentin 2021-0 Yes [id number] 300mg Take 3 [facility] 100 mg 1-05 [id number] capsules ity of capsule 00:00: by mouth 3 [place] 00 (three) Medical times Branch daily. gabapentin 2021-0 Yes [id number] 300mg Take 3 [facility] 100 mg 1-05 [id number] capsules ity of capsule 00:00: by mouth 3 [place] 00 (three) Medical times Branch daily. gabapentin 2021-0 Yes [id number] 300mg Take 3 [facility] 100 mg 1-05 [id number] capsules ity of capsule 00:00: by mouth 3 [place] 00 (three) Medical times Branch daily. gabapentin 2021-0 Yes [id number] 300mg Take 3 [facility] 100 mg 1-05 [id number] capsules ity of capsule 00:00: by mouth 3 [place] 00 (three) Medical times Branch daily. gabapentin 2021-0 Yes [id number] 300mg Take 3 [facility] 100 mg 1-05 [id number] capsules ity of capsule 00:00: by mouth 3 [place] 00 (three) Medical times Branch daily. gabapentin 2021-0 Yes [id number] 300mg Take 3 [facility] 100 mg 1-05 [id number] capsules ity of capsule 00:00: by mouth 3 [place] 00 (three) Medical times Branch daily. gabapentin 2020-0 Yes [id number] 300mg Take 3 [facility] 100 mg 1-05 [id number] capsules ity of capsule 00:00: by mouth 3 [place] 00 (three) Medical times Branch daily. gabapentin 2020-0 Yes [id number] 300mg Take 3 [facility] 100 mg 1-05 [id number] capsules ity of capsule 00:00: by mouth 3 [place] 00 (three) Medical times Branch daily. gabapentin 2020-0 Yes [id number] 300mg Take 3 [facility] 100 mg 1-05 [id number] capsules ity of capsule 00:00: by mouth 3 [place] 00 (three) Medical times Branch daily. gabapentin 2020-0 Yes [id number] 300mg Take 3 [facility] 100 mg 1-05 [id number] capsules ity of capsule 00:00: by mouth 3 [place] 00 (three) Medical times Branch daily. gabapentin 2020-0 2021- No [id number] 300mg Take 3 [facility] 100 mg 1-05 02-05 [id number] capsules ity of capsule 00:00: 00:00 by mouth 3 [place] 00 :00 (three) Medical times Branch daily. DEXILANT 60 2020- Yes [id number] 60mg TAKE 1 [facility] mg capsule 2-22 CAPSULE BY ity of 00:00: MOUTH [place] 00 DAILY. Medical STOP Branch ESOMEPRAZO LE. DEXILANT 60 2019- Yes [id number] 60mg TAKE 1 [facility] mg capsule 2-22 CAPSULE BY ity of 00:00: MOUTH [place] 00 DAILY. Medical STOP Branch ESOMEPRAZO LE. DEXILANT 60 2020- Yes [id number] 60mg TAKE 1 [facility] mg capsule 2-22 CAPSULE BY ity of 00:00: MOUTH [place] 00 DAILY. Medical STOP Branch ESOMEPRAZO LE. DEXILANT 60 2020-1 Yes [id number] 60mg TAKE 1 [facility] mg capsule 2-22 CAPSULE BY ity of 00:00: MOUTH [place] 00 DAILY. Medical STOP Branch ESOMEPRAZO LE. DEXILANT 60 2020-1 Yes [id number] 60mg TAKE 1 [facility] mg capsule 2-22 CAPSULE BY ity of 00:00: MOUTH [place] 00 DAILY. Medical STOP Branch ESOMEPRAZO LE. DEXILANT 60 2020- Yes [id number] 60mg TAKE 1 [facility] mg capsule 2-22 CAPSULE BY ity of 00:00: MOUTH [place] 00 DAILY. Medical STOP Branch ESOMEPRAZO LE. DEXILANT 60 2019- Yes [id number] 60mg TAKE 1 [facility] mg capsule 2-22 CAPSULE BY ity of 00:00: MOUTH [place] 00 DAILY. Medical STOP Branch ESOMEPRAZO LE. DEXILANT 60 2019- Yes [id number] 60mg TAKE 1 [facility] mg capsule 2-22 CAPSULE BY ity of 00:00: MOUTH [place] 00 DAILY. Medical STOP Branch ESOMEPRAZO LE. DEXILANT 60 2019- Yes [id number] 60mg TAKE 1 [facility] mg capsule 2-22 CAPSULE BY ity of 00:00: MOUTH [place] 00 DAILY. Medical STOP Branch ESOMEPRAZO LE. DEXILANT 60 2019- Yes [id number] 60mg TAKE 1 [facility] mg capsule 2-22 CAPSULE BY ity of 00:00: MOUTH [place] 00 DAILY. Medical STOP Branch ESOMEPRAZO LE. DEXILANT 60 2019-09 Yes [id number] 60mg TAKE 1 [facility] mg capsule 2-22 CAPSULE BY ity of 00:00: MOUTH [place] 00 DAILY. Medical STOP Branch ESOMEPRAZO LE. DEXILANT 60 2019- Yes [id number] 60mg TAKE 1 [facility] mg capsule 2-22 CAPSULE BY ity of 00:00: MOUTH [place] 00 DAILY. Medical STOP Branch ESOMEPRAZO LE. DEXILANT 60 2019- Yes [id number] 60mg TAKE 1 [facility] mg capsule 2-22 CAPSULE BY ity of 00:00: MOUTH [place] 00 DAILY. Medical STOP Branch ESOMEPRAZO LE. DEXILANT 60 2019- Yes [id number] 60mg TAKE 1 [facility] mg capsule 2-22 CAPSULE BY ity of 00:00: MOUTH [place] 00 DAILY. Medical STOP Branch ESOMEPRAZO LE. DEXILANT 60 2019- Yes [id number] 60mg TAKE 1 [facility] mg capsule 2-22 CAPSULE BY ity of 00:00: MOUTH [place] 00 DAILY. Medical STOP Branch ESOMEPRAZO LE. DEXILANT 60 2020- Yes [id number] 60mg TAKE 1 [facility] mg capsule 2-22 CAPSULE BY ity of 00:00: MOUTH [place] 00 DAILY. Medical STOP Branch ESOMEPRAZO LE. DEXILANT 60 2019- Yes [id number] 60mg TAKE 1 [facility] mg capsule 2-22 CAPSULE BY ity of 00:00: MOUTH [place] 00 DAILY. Medical STOP Branch ESOMEPRAZO LE. DEXILANT 60 2019-09 Yes [id number] 60mg TAKE 1 [facility] mg capsule 2-22 CAPSULE BY ity of 00:00: MOUTH [place] 00 DAILY. Medical STOP Branch ESOMEPRAZO LE. DEXILANT 60 2019-09 Yes [id number] 60mg TAKE 1 [facility] mg capsule 2-22 CAPSULE BY ity of 00:00: MOUTH [place] 00 DAILY. Medical STOP Branch ESOMEPRAZO LE. DEXILANT 60 2019-09 Yes [id number] 60mg TAKE 1 [facility] mg capsule 2-22 CAPSULE BY ity of 00:00: MOUTH [place] 00 DAILY. Medical STOP Branch ESOMEPRAZO LE. DEXILANT 60 2019-09 Yes [id number] 60mg TAKE 1 [facility] mg capsule 2-22 CAPSULE BY ity of 00:00: MOUTH [place] 00 DAILY. Medical STOP Branch ESOMEPRAZO LE. DEXILANT 60 2019-09 Yes [id number] 60mg TAKE 1 [facility] mg capsule 2-22 CAPSULE BY ity of 00:00: MOUTH [place] 00 DAILY. Medical STOP Branch ESOMEPRAZO LE. DEXILANT 60 2019-09 Yes [id number] 60mg TAKE 1 [facility] mg capsule 2-22 CAPSULE BY ity of 00:00: MOUTH [place] 00 DAILY. Medical STOP Branch ESOMEPRAZO LE. DEXILANT 60 2019-09 Yes [id number] 60mg TAKE 1 [facility] mg capsule 2-22 CAPSULE BY ity of 00:00: MOUTH [place] 00 DAILY. Medical STOP Branch ESOMEPRAZO LE. DEXILANT 60 2019-09 Yes [id number] 60mg TAKE 1 [facility] mg capsule 2-22 CAPSULE BY ity of 00:00: MOUTH [place] 00 DAILY. Medical STOP Branch ESOMEPRAZO LE. DEXILANT 60 2019-09 Yes [id number] 60mg TAKE 1 [facility] mg capsule 2-22 CAPSULE BY ity of 00:00: MOUTH [place] 00 DAILY. Medical STOP Branch ESOMEPRAZO LE. DEXILANT 60 2019-09 Yes [id number] 60mg TAKE 1 [facility] mg capsule 2-22 CAPSULE BY ity of 00:00: MOUTH [place] 00 DAILY. Medical STOP Branch ESOMEPRAZO LE. DEXILANT 60 2019-09 Yes [id number] 60mg TAKE 1 [facility] mg capsule 2-22 CAPSULE BY ity of 00:00: MOUTH [place] 00 DAILY. Medical STOP Branch ESOMEPRAZO LE. DEXILANT 60 2019-09 Yes [id number] 60mg TAKE 1 [facility] mg capsule 2-22 CAPSULE BY ity of 00:00: MOUTH [place] 00 DAILY. Medical STOP Branch ESOMEPRAZO LE. DEXILANT 60 2019-09 Yes [id number] 60mg TAKE 1 [facility] mg capsule 2-22 CAPSULE BY ity of 00:00: MOUTH [place] 00 DAILY. Medical STOP Branch ESOMEPRAZO LE. DEXILANT 60 2019-09 Yes [id number] 60mg TAKE 1 [facility] mg capsule 2-22 CAPSULE BY ity of 00:00: MOUTH [place] 00 DAILY. Medical STOP Branch ESOMEPRAZO LE. DEXILANT 60 2019-09 Yes [id number] 60mg TAKE 1 [facility] mg capsule 2-22 CAPSULE BY ity of 00:00: MOUTH [place] 00 DAILY. Medical STOP Branch ESOMEPRAZO LE. DEXILANT 60 2019-09 Yes [id number] 60mg TAKE 1 [facility] mg capsule 2-22 CAPSULE BY ity of 00:00: MOUTH [place] 00 DAILY. [facility] ESOMEPRAZO LE. DEXILANT 60 2019-09 Yes [id number] 60mg TAKE 1 [facility] mg capsule 2-22 CAPSULE BY ity of 00:00: MOUTH [place] 00 DAILY. Medical STOP Branch ESOMEPRAZO LE. DEXILANT 60 2019-09 Yes [id number] 60mg TAKE 1 [facility] mg capsule 2-22 CAPSULE BY ity of 00:00: MOUTH [place] 00 DAILY. Medical STOP Branch ESOMEPRAZO LE. DEXILANT 60 2019-09 Yes [id number] 60mg TAKE 1 [facility] mg capsule 2-22 CAPSULE BY ity of 00:00: MOUTH [place] 00 DAILY. Medical [facility] Branch ESOMEPRAZO LE. DEXILANT 60 2019-09 Yes [id number] 60mg TAKE 1 [facility] mg capsule 2-22 CAPSULE BY ity of 00:00: MOUTH [place] 00 DAILY. Medical STOP Branch ESOMEPRAZO LE. DEXILANT 60 2019-09- No [id number] 60mg TAKE 1 [facility] mg capsule 2-22 08-18 CAPSULE BY it y of 00:00: 00:00 MOUTH [place] 00 :00 DAILY. Medical STOP Branch ESOMEPRAZO LE. thiamine 2019-09 Yes [id number] 100mg Take 1 U nivers 100 mg 2-16 tablet by ity of tablet 00:00: mouth [place] 00 daily. Medical Branch Ferrous 2019-09 Yes [id number] 142mg Take 1 [facility] vers Sulfate 2-16 tablet by ity of (SLOW FE) 00:00: mouth [place] 142 mg (45 00 daily. Medical mg iron) Branch tablet thiamine 2019- Yes [id number] 100mg Take 1 U nivers 100 mg 2-16 tablet by ity of tablet 00:00: mouth [place] 00 daily. Medical Branch Ferrous 2020- Yes [id number] 142mg Take 1 [facility] vers Sulfate 2-16 tablet by ity of (SLOW FE) 00:00: mouth [place] 142 mg (45 00 daily. Medical mg iron) Branch tablet thiamine 2019- Yes [id number] 100mg Take 1 U nivers 100 mg 2-16 tablet by ity of tablet 00:00: mouth [place] 00 daily. Medical Branch Ferrous 2020- Yes [id number] 142mg Take 1 [facility] vers Sulfate 2-16 tablet by ity of (SLOW FE) 00:00: mouth [place] 142 mg (45 00 daily. Medical mg iron) Branch tablet thiamine 2019-09 Yes [id number] 100mg Take 1 U nivers 100 mg 2-16 tablet by ity of tablet 00:00: mouth [place] 00 daily. Medical Branch Ferrous 2020- Yes [id number] 142mg Take 1 [facility] vers Sulfate 2-16 tablet by ity of (SLOW FE) 00:00: mouth [place] 142 mg (45 00 daily. Medical mg iron) Branch tablet thiamine 2019-09 Yes [id number] 100mg Take 1 [facility] 100 mg 2-16 tablet by [facility] tablet 00:00: mouth [place] 00 daily. [facility] Ferrous 2020- Yes [id number] 142mg Take 1 [facility] Sulfate 2-16 tablet by [facility] of (SLOW FE) 00:00: mouth [place] 142 mg (45 00 daily. Medical mg iron) Branch tablet thiamine 2019- Yes [id number] 100mg Take 1 [facility] 100 mg 2-16 tablet by [facility] tablet 00:00: mouth [place] 00 daily. [facility] Ferrous 2020- Yes [id number] 142mg Take 1 [facility] Sulfate 2-16 tablet by [facility] of (SLOW FE) 00:00: mouth [place] 142 mg (45 00 daily. Medical mg iron) Branch tablet thiamine 2019- Yes [id number] 100mg Take 1 [facility] 100 mg 2-16 tablet by [facility] tablet 00:00: mouth [place] 00 daily. [facility] Ferrous 2020- Yes [id number] 142mg Take 1 [facility] Sulfate 2-16 tablet by [facility] of (SLOW FE) 00:00: mouth [place] 142 mg (45 00 daily. Medical mg iron) Branch tablet thiamine 2019-09 Yes [id number] 100mg Take 1 [facility] 100 mg 2-16 tablet by [facility] tablet 00:00: mouth [place] 00 daily. [facility] Ferrous 2020- Yes [id number] 142mg Take 1 [facility] Sulfate 2-16 tablet by [facility] of (SLOW FE) 00:00: mouth [place] 142 mg (45 00 daily. Medical mg iron) Branch tablet thiamine 2019-09 Yes [id number] 100mg Take 1 [facility] 100 mg 2-16 tablet by [facility] tablet 00:00: mouth [place] 00 daily. [facility] Ferrous 2019- Yes [id number] 142mg Take 1 [facility] Sulfate 2-16 tablet by [facility] of (SLOW FE) 00:00: mouth [place] 142 mg (45 00 daily. Medical mg iron) Branch tablet thiamine 2019-09 Yes [id number] 100mg Take 1 [facility] 100 mg 2-16 tablet by [facility] tablet 00:00: mouth [place] 00 daily. [facility] Ferrous 2019- Yes [id number] 142mg Take 1 [facility] vers Sulfate 2-16 tablet by [facility] of (SLOW FE) 00:00: mouth [place] 142 mg (45 00 daily. Medical mg iron) Branch tablet thiamine 2019-09 Yes [id number] 100mg Take 1 [facility] 100 mg 2-16 tablet by [facility] tablet 00:00: mouth [place] 00 daily. [facility] Ferrous 2019- Yes [id number] 142mg Take 1 [facility] Sulfate 2-16 tablet by [facility] of (SLOW FE) 00:00: mouth [place] 142 mg (45 00 daily. Medical mg iron) Branch tablet thiamine 2019-09 Yes [id number] 100mg Take 1 [facility] 100 mg 2-16 tablet by [facility] tablet 00:00: mouth [place] 00 daily. [facility] Ferrous 2020- Yes [id number] 142mg Take 1 [facility] Sulfate 2-16 tablet by [facility] of (SLOW FE) 00:00: mouth [place] 142 mg (45 00 daily. Medical mg iron) Branch tablet thiamine 2019- Yes [id number] 100mg Take 1 [facility] 100 mg 2-16 tablet by [facility] tablet 00:00: mouth [place] 00 daily. [facility] Ferrous 2020- Yes [id number] 142mg Take 1 [facility] Sulfate 2-16 tablet by [facility] of (SLOW FE) 00:00: mouth [place] 142 mg (45 00 daily. Medical mg iron) Branch tablet thiamine 2019-09 Yes [id number] 100mg Take 1 [facility] 100 mg 2-16 tablet by [facility] tablet 00:00: mouth [place] 00 daily. [facility] Ferrous 2020- Yes [id number] 142mg Take 1 [facility] Sulfate 2-16 tablet by [facility] of (SLOW FE) 00:00: mouth [place] 142 mg (45 00 daily. Medical mg iron) Branch tablet thiamine 2019-09 Yes [id number] 100mg Take 1 [facility] 100 mg 2-16 tablet by [facility] tablet 00:00: mouth [place] 00 daily. [facility] Ferrous 2019- Yes [id number] 142mg Take 1 [facility] Sulfate 2-16 tablet by [facility] of (SLOW FE) 00:00: mouth [place] 142 mg (45 00 daily. Medical mg iron) Branch tablet thiamine 2019-09 Yes [id number] 100mg Take 1 [facility] 100 mg 2-16 tablet by [facility] tablet 00:00: mouth [place] 00 daily. [facility] Ferrous 2019- Yes [id number] 142mg Take 1 [facility] Sulfate 2-16 tablet by [facility] of (SLOW FE) 00:00: mouth [place] 142 mg (45 00 daily. Medical mg iron) Branch tablet thiamine 2019-09 Yes [id number] 100mg Take 1 [facility] 100 mg 2-16 tablet by [facility] of tablet 00:00: mouth [place] 00 daily. [facility] Ferrous 2019- Yes [id number] 142mg Take 1 [facility] Sulfate 2-16 tablet by [facility] of (SLOW FE) 00:00: mouth [place] 142 mg (45 00 daily. Medical mg iron) Branch tablet thiamine 2019-09 Yes [id number] 100mg Take 1 [facility] 100 mg 2-16 tablet by [facility] tablet 00:00: mouth [place] 00 daily. [facility] Ferrous 2020- Yes [id number] 142mg Take 1 [facility] Sulfate 2-16 tablet by [facility] of (SLOW FE) 00:00: mouth [place] 142 mg (45 00 daily. Medical mg iron) Branch tablet thiamine 2019-09 Yes [id number] 100mg Take 1 [facility] 100 mg 2-16 tablet by [facility] tablet 00:00: mouth [place] 00 daily. [facility] Ferrous 2020- Yes [id number] 142mg Take 1 [facility] Sulfate 2-16 tablet by [facility] of (SLOW FE) 00:00: mouth [place] 142 mg (45 00 daily. Medical mg iron) Branch tablet thiamine 2019-09 Yes [id number] 100mg Take 1 [facility] 100 mg 2-16 tablet by [facility] tablet 00:00: mouth [place] 00 daily. [facility] Ferrous 2020- Yes [id number] 142mg Take 1 [facility] Sulfate 2-16 tablet by [facility] of (SLOW FE) 00:00: mouth [place] 142 mg (45 00 daily. Medical mg iron) Branch tablet thiamine 2019-09 Yes [id number] 100mg Take 1 [facility] 100 mg 2-16 tablet by [facility] tablet 00:00: mouth [place] 00 daily. [facility] Ferrous 2019- Yes [id number] 142mg Take 1 [facility] Sulfate 2-16 tablet by [facility] of (SLOW FE) 00:00: mouth [place] 142 mg (45 00 daily. Medical mg iron) Branch tablet thiamine 2019-09 Yes [id number] 100mg Take 1 [facility] 100 mg 2-16 tablet by [facility] tablet 00:00: mouth [place] 00 daily. [facility] Ferrous 2019- Yes [id number] 142mg Take 1 [facility] Sulfate 2-16 tablet by [facility] of (SLOW FE) 00:00: mouth [place] 142 mg (45 00 daily. Medical mg iron) Branch tablet thiamine 2019-09 Yes [id number] 100mg Take 1 [facility] 100 mg 2-16 tablet by [facility] tablet 00:00: mouth [place] 00 daily. [facility] Ferrous 2020- Yes [id number] 142mg Take 1 [facility] Sulfate 2-16 tablet by [facility] of (SLOW FE) 00:00: mouth [place] 142 mg (45 00 daily. Medical mg iron) Branch tablet thiamine 2019-09 Yes [id number] 100mg Take 1 [facility] 100 mg 2-16 tablet by [facility] of tablet 00:00: mouth [place] 00 daily. [facility] Ferrous 2020- Yes [id number] 142mg Take 1 [facility] Sulfate 2-16 tablet by [facility] of (SLOW FE) 00:00: mouth [place] 142 mg (45 00 daily. Medical mg iron) Branch tablet thiamine 2019-09 Yes [id number] 100mg Take 1 [facility] 100 mg 2-16 tablet by [facility] of tablet 00:00: mouth [place] 00 daily. [facility] Ferrous 2020- Yes [id number] 142mg Take 1 [facility] Sulfate 2-16 tablet by [facility] of (SLOW FE) 00:00: mouth [place] 142 mg (45 00 daily. Medical mg iron) Branch tablet thiamine 2019-09 Yes [id number] 100mg Take 1 [facility] 100 mg 2-16 tablet by [facility] tablet 00:00: mouth [place] 00 daily. [facility] Ferrous 2020- Yes [id number] 142mg Take 1 [facility] Sulfate 2-16 tablet by [facility] of (SLOW FE) 00:00: mouth [place] 142 mg (45 00 daily. Medical mg iron) Branch tablet thiamine 2019-09 Yes [id number] 100mg Take 1 [facility] 100 mg 2-16 tablet by [facility] tablet 00:00: mouth [place] 00 daily. [facility] Ferrous 2019- Yes [id number] 142mg Take 1 [facility] Sulfate 2-16 tablet by [facility] of (SLOW FE) 00:00: mouth [place] 142 mg (45 00 daily. Medical mg iron) Branch tablet thiamine 2019-09 Yes [id number] 100mg Take 1 [facility] 100 mg 2-16 tablet by [facility] tablet 00:00: mouth [place] 00 daily. [facility] Ferrous 2019- Yes [id number] 142mg Take 1 [facility] Sulfate 2-16 tablet by [facility] of (SLOW FE) 00:00: mouth [place] 142 mg (45 00 daily. Medical mg iron) Branch tablet thiamine 2019-09 Yes [id number] 100mg Take 1 [facility] 100 mg 2-16 tablet by [facility] tablet 00:00: mouth [place] 00 daily. [facility] Ferrous 2020- Yes [id number] 142mg Take 1 [facility] Sulfate 2-16 tablet by [facility] of (SLOW FE) 00:00: mouth [place] 142 mg (45 00 daily. Medical mg iron) Branch tablet thiamine 2019-09 Yes [id number] 100mg Take 1 [facility] 100 mg 2-16 tablet by [facility] tablet 00:00: mouth [place] 00 daily. [facility] Ferrous 2020- Yes [id number] 142mg Take 1 [facility] Sulfate 2-16 tablet by [facility] of (SLOW FE) 00:00: mouth [place] 142 mg (45 00 daily. Medical mg iron) Branch tablet thiamine 2019-09 Yes [id number] 100mg Take 1 [facility] 100 mg 2-16 tablet by [facility] tablet 00:00: mouth [place] 00 daily. [facility] Ferrous 2020- Yes [id number] 142mg Take 1 [facility] Sulfate 2-16 tablet by [facility] of (SLOW FE) 00:00: mouth [place] 142 mg (45 00 daily. Medical mg iron) Branch tablet thiamine 2019-09 Yes [id number] 100mg Take 1 [facility] 100 mg 2-16 tablet by [facility] tablet 00:00: mouth [place] 00 daily. [facility] Ferrous 2020- Yes [id number] 142mg Take 1 [facility] Sulfate 2-16 tablet by [facility] of (SLOW FE) 00:00: mouth [place] 142 mg (45 00 daily. Medical mg iron) Branch tablet thiamine 2019-09 Yes [id number] 100mg Take 1 [facility] 100 mg 2-16 tablet by [facility] tablet 00:00: mouth [place] 00 daily. [facility] Ferrous 2019-09 Yes [id number] 142mg Take 1 [facility] Sulfate 2-16 tablet by [facility] of (SLOW FE) 00:00: mouth [place] 142 mg (45 00 daily. Medical mg iron) Branch tablet thiamine 2019-09 Yes [id number] 100mg Take 1 [facility] 100 mg 2-16 tablet by [facility] tablet 00:00: mouth [place] 00 daily. [facility] Ferrous 2019-09 Yes [id number] 142mg Take 1 [facility] vers Sulfate 2-16 tablet by [facility] of (SLOW FE) 00:00: mouth [place] 142 mg (45 00 daily. Medical mg iron) Branch tablet thiamine 2019-09 Yes [id number] 100mg Take 1 [facility] 100 mg 2-16 tablet by [facility] of tablet 00:00: mouth [place] 00 daily. [facility] Ferrous 2019- Yes [id number] 142mg Take 1 [facility] vers Sulfate 2-16 tablet by [facility] of (SLOW FE) 00:00: mouth [place] 142 mg (45 00 daily. Medical mg iron) Branch tablet thiamine 2019-09 Yes [id number] 100mg Take 1 [facility] 100 mg 2-16 tablet by [facility] of tablet 00:00: mouth [place] 00 daily. [facility] Ferrous 2020- Yes [id number] 142mg Take 1 [facility] vers Sulfate 2-16 tablet by [facility] of (SLOW FE) 00:00: mouth [place] 142 mg (45 00 daily. Medical mg iron) Branch tablet thiamine 2019-09 Yes [id number] 100mg Take 1 [facility] 100 mg 2-16 tablet by [facility] of tablet 00:00: mouth [place] 00 daily. [facility] Ferrous 2020- Yes [id number] 142mg Take 1 [facility] vers Sulfate 2-16 tablet by [facility] of (SLOW FE) 00:00: mouth [place] 142 mg (45 00 daily. Medical mg iron) Branch tablet thiamine 2019-09 Yes [id number] 100mg Take 1 [facility] 100 mg 2-16 tablet by [facility] of tablet 00:00: mouth [place] 00 daily. [facility] Ferrous 2019- Yes [id number] 142mg Take 1 [facility] vers Sulfate 2-16 tablet by [facility] of (SLOW FE) 00:00: mouth [place] 142 mg (45 00 daily. Medical mg iron) Branch tablet thiamine 2019-09 Yes [id number] 100mg Take 1 [facility] 100 mg 2-16 tablet by [facility] of tablet 00:00: mouth [place] 00 daily. [facility] Ferrous 2019- Yes [id number] 142mg Take 1 [facility] vers Sulfate 2-16 tablet by [facility] of (SLOW FE) 00:00: mouth [place] 142 mg (45 00 daily. Medical mg iron) Branch tablet thiamine 2019-09 Yes [id number] 100mg Take 1 [facility] 100 mg 2-16 tablet by [facility] of tablet 00:00: mouth [place] 00 daily. [facility] Ferrous 2019-09 Yes [id number] 142mg Take 1 [facility] vers Sulfate 2-16 tablet by [facility] of (SLOW FE) 00:00: mouth [place] 142 mg (45 00 daily. Medical mg iron) Branch tablet thiamine 2019-09 Yes [id number] 100mg Take 1 [facility] 100 mg 2-16 tablet by [facility] of tablet 00:00: mouth [place] 00 daily. Medical Branch Ferrous 2019- Yes [id number] 142mg Take 1 [facility] vers Sulfate 2-16 tablet by [facility] of (SLOW FE) 00:00: mouth [place] 142 mg (45 00 daily. Medical mg iron) Branch tablet gabapentin 2019-09 2020- No 100mg 100 mg, [facility] [place] (NEURONTIN) 2-15 12-15 Oral, [facility] of capsule 100 05:30: 04:36 ONCE, 1 [place] 00 :[place] dose, [facility] 08/30/20 Branch at 2330, Routine CLOPIDOGREL 2019- Yes [id number] TAKE 1 [facility] 75 mg 2-15 [id number] TABLET BY ity of tablet 00:00: MOUTH [place] 00 EVERY DAY Medical Branch CLOPIDOGREL 2019- Yes [id number] TAKE 1 [facility] 75 mg 2-15 [id number] TABLET BY ity of tablet 00:00: MOUTH [place] 00 EVERY DAY Medical Branch PRAVASTATIN 2020-1 Yes [id number] 10mg TAKE 1 [facility] 10 mg 2-15 [id number] TABLET BY ity of tablet 00:00: MOUTH [place] 00 EVERY Medical OTHER DAY Branch CLOPIDOGREL 2020-1 Yes [id number] TAKE 1 [facility] 75 mg 2-15 [id number] TABLET BY it[facility] of tablet 00:00: MOUTH [place] 00 EVERY DAY Medical Branch PRAVASTATIN 2020-1 Yes [id number] 10mg TAKE 1 [facility] 10 mg 2-15 [id number] TABLET BY [facility] of tablet 00:00: MOUTH [place] 00 EVERY Medical OTHER DAY Branch CLOPIDOGREL 2020-1 Yes [id number] TAKE 1 [facility] 75 mg 2-15 [id number] TABLET BY [facility] of tablet 00:00: MOUTH [place] 00 EVERY DAY Medical Branch PRAVASTATIN 2020-1 Yes [id number] 10mg TAKE 1 [facility] 10 mg 2-15 [id number] TABLET BY [facility] of tablet 00:00: MOUTH [place] 00 EVERY Medical OTHER DAY Branch CLOPIDOGREL 2020-1 Yes [id number] TAKE 1 [facility] 75 mg 2-15 [id number] TABLET BY it[facility] of tablet 00:00: MOUTH [place] 00 EVERY DAY Medical Branch PRAVASTATIN 2020-1 Yes [id number] 10mg TAKE 1 [facility] 10 mg 2-15 [id number] TABLET BY it[facility] of tablet 00:00: MOUTH [place] 00 EVERY Medical OTHER DAY Branch CLOPIDOGREL 2020-1 Yes [id number] TAKE 1 [facility] 75 mg 2-15 [id number] TABLET BY [facility] of tablet 00:00: MOUTH [place] 00 EVERY DAY Medical Branch PRAVASTATIN 2020-1 Yes [id number] 10mg TAKE 1 [facility] 10 mg 2-15 [id number] TABLET BY it[facility] of tablet 00:00: MOUTH [place] 00 EVERY Medical OTHER DAY Branch CLOPIDOGREL 2020-1 Yes [id number] TAKE 1 [facility] 75 mg 2-15 [id number] TABLET BY [facility] of tablet 00:00: MOUTH [place] 00 EVERY DAY Medical Branch PRAVASTATIN 2020-1 Yes [id number] 10mg TAKE 1 [facility] 10 mg 2-15 [id number] TABLET BY it[facility] of tablet 00:00: MOUTH [place] 00 EVERY Medical OTHER DAY Branch CLOPIDOGREL 2020-1 Yes [id number] TAKE 1 [facility] 75 mg 2-15 [id number] TABLET BY [facility] of tablet 00:00: MOUTH [place] 00 EVERY DAY Medical Branch PRAVASTATIN 2020-1 Yes [id number] 10mg TAKE 1 [facility] 10 mg 2-15 [id number] TABLET BY it[facility] of tablet 00:00: MOUTH [place] 00 EVERY Medical OTHER DAY Branch CLOPIDOGREL 2020-1 Yes [id number] TAKE 1 [facility] 75 mg 2-15 [id number] TABLET BY [facility] of tablet 00:00: MOUTH [place] 00 EVERY DAY Medical Branch PRAVASTATIN 2020-1 Yes [id number] 10mg TAKE 1 [facility] 10 mg 2-15 [id number] TABLET BY it[facility] of tablet 00:00: MOUTH [place] 00 EVERY Medical OTHER DAY Branch CLOPIDOGREL 2020-1 Yes [id number] TAKE 1 [facility] 75 mg 2-15 [id number] TABLET BY [facility] of tablet 00:00: MOUTH [place] 00 EVERY DAY Medical Branch PRAVASTATIN 2020-1 Yes [id number] 10mg TAKE 1 [facility] 10 mg 2-15 [id number] TABLET BY ity of tablet 00:00: MOUTH [place] 00 EVERY Medical OTHER DAY Branch CLOPIDOGREL 2020-1 Yes [id number] TAKE 1 [facility] 75 mg 2-15 [id number] TABLET BY [facility] of tablet 00:00: MOUTH 00 EVERY DAY Medical Branch PRAVASTATIN 2020-1 Yes [id number] 10mg TAKE 1 [facility] 10 mg 2-15 [id number] TABLET BY [facility] of tablet 00:00: MOUTH [place] 00 EVERY Medical OTHER DAY Branch CLOPIDOGREL 2020-1 Yes [id number] TAKE 1 [facility] 75 mg 2-15 [id number] TABLET BY ity of tablet 00:00: MOUTH [place] 00 EVERY DAY Medical Branch PRAVASTATIN 2020-1 Yes [id number] 10mg TAKE 1 [facility] 10 mg 2-15 [id number] TABLET BY ity of tablet 00:00: MOUTH [place] 00 EVERY Medical OTHER DAY Branch CLOPIDOGREL 2020-1 Yes [id number] TAKE 1 [facility] 75 mg 2-15 [id number] TABLET BY ity of tablet 00:00: MOUTH [place] 00 EVERY DAY Medical Branch PRAVASTATIN 2020-1 Yes [id number] 10mg TAKE 1 [facility] 10 mg 2-15 [id number] TABLET BY ity of tablet 00:00: MOUTH [place] 00 EVERY Medical OTHER DAY Branch CLOPIDOGREL 2020-1 Yes [id number] TAKE 1 [facility] 75 mg 2-15 [id number] TABLET BY ity of tablet 00:00: MOUTH [place] 00 EVERY DAY Medical Branch PRAVASTATIN 2020-1 Yes [id number] 10mg TAKE 1 [facility] 10 mg 2-15 [id number] TABLET BY ity of tablet 00:00: MOUTH [place] 00 EVERY Medical OTHER DAY Branch CLOPIDOGREL 2020-1 Yes [id number] TAKE 1 [facility] 75 mg 2-15 [id number] TABLET BY ity of tablet 00:00: MOUTH [place] 00 EVERY DAY Medical Branch PRAVASTATIN 2020-1 Yes [id number] 10mg TAKE 1 [facility] 10 mg 2-15 [id number] TABLET BY it[facility] of tablet 00:00: MOUTH [place] 00 EVERY Medical OTHER DAY Branch CLOPIDOGREL 2020-1 Yes [id number] TAKE 1 [facility] 75 mg 2-15 [id number] TABLET BY it[facility] of tablet 00:00: MOUTH [place] 00 EVERY DAY Medical Branch PRAVASTATIN 2020-1 Yes [id number] 10mg TAKE 1 [facility] 10 mg 2-15 [id number] TABLET BY it[facility] of tablet 00:00: MOUTH [place] 00 EVERY Medical OTHER DAY Branch CLOPIDOGREL 2020-1 Yes [id number] TAKE 1 [facility] 75 mg 2-15 [id number] TABLET BY [facility] of tablet 00:00: MOUTH [place] EVERY DAY Medical Branch PRAVASTATIN 2020-1 Yes [id number] 10mg TAKE 1 [facility] 10 mg 2-15 [id number] TABLET BY it[facility] of tablet 00:00: MOUTH [place] EVERY Medical OTHER DAY Branch CLOPIDOGREL 2020-1 Yes [id number] TAKE 1 [facility] 75 mg 2-15 [id number] TABLET BY ity of tablet 00:00: MOUTH [place] EVERY DAY Medical Branch PRAVASTATIN 2020-1 Yes [id number] 10mg TAKE 1 [facility] 10 mg 2-15 [id number] TABLET BY ity of tablet 00:00: MOUTH [place] 00 EVERY Medical OTHER DAY Branch CLOPIDOGREL 2020-1 Yes [id number] TAKE 1 [facility] 75 mg 2-15 [id number] TABLET BY ity of tablet 00:00: MOUTH [place] 00 EVERY DAY Medical Branch PRAVASTATIN 2020-1 Yes [id number] 10mg TAKE 1 [facility] 10 mg 2-15 [id number] TABLET BY ity of tablet 00:00: MOUTH [place] EVERY Medical OTHER DAY Branch CLOPIDOGREL 2020-1 Yes [id number] TAKE 1 [facility] 75 mg 2-15 [id number] TABLET BY it[facility] of tablet 00:00: MOUTH [place] 00 EVERY DAY Medical Branch PRAVASTATIN 2020-1 Yes [id number] 10mg TAKE 1 [facility] 10 mg 2-15 [id number] TABLET BY ity of tablet 00:00: MOUTH [place] EVERY Medical OTHER DAY Branch CLOPIDOGREL 2020-1 Yes [id number] TAKE 1 [facility] 75 mg 2-15 [id number] TABLET BY ity of tablet 00:00: MOUTH [place] 00 EVERY DAY Medical Branch PRAVASTATIN 2020-1 Yes [id number] 10mg TAKE 1 [facility] 10 mg 2-15 [id number] TABLET BY ity of tablet 00:00: MOUTH [place] EVERY Medical OTHER DAY Branch CLOPIDOGREL 2020-1 Yes [id number] TAKE 1 [facility] 75 mg 2-15 [id number] TABLET BY ity of tablet 00:00: MOUTH [place] 00 EVERY DAY Medical Branch PRAVASTATIN 2020-1 Yes [id number] 10mg TAKE 1 [facility] 10 mg 2-15 [id number] TABLET BY ity of tablet 00:00: MOUTH [place] 00 EVERY Medical OTHER DAY Branch CLOPIDOGREL 2020-1 Yes [id number] TAKE 1 [facility] 75 mg 2-15 [id number] TABLET BY ity of tablet 00:00: MOUTH [place] 00 EVERY DAY Medical Branch PRAVASTATIN 2020-1 Yes [id number] 10mg TAKE 1 [facility] 10 mg 2-15 [id number] TABLET BY ity of tablet 00:00: MOUTH [place] 00 EVERY Medical OTHER DAY Branch CLOPIDOGREL 2020-1 Yes [id number] TAKE 1 [facility] 75 mg 2-15 [id number] TABLET BY ity of tablet 00:00: MOUTH [place] 00 EVERY DAY Medical Branch PRAVASTATIN 2020-1 Yes [id number] 10mg TAKE 1 [facility] 10 mg 2-15 [id number] TABLET BY ity of tablet 00:00: MOUTH [place] 00 EVERY Medical OTHER DAY Branch CLOPIDOGREL 2020-1 Yes [id number] TAKE 1 [facility] 75 mg 2-15 [id number] TABLET BY ity of tablet 00:00: MOUTH [place] 00 EVERY DAY Medical Branch CLOPIDOGREL 2020-1 Yes [id number] TAKE 1 [facility] 75 mg 2-15 [id number] TABLET BY ity of tablet 00:00: MOUTH [place] 00 EVERY DAY Medical Branch CLOPIDOGREL 2020-1 Yes [id number] TAKE 1 [facility] 75 mg 2-15 [id number] TABLET BY ity of tablet 00:00: MOUTH [place] 00 EVERY DAY Medical Branch CLOPIDOGREL 2020-1 Yes [id number] TAKE 1 [facility] 75 mg 2-15 [id number] TABLET BY ity of tablet 00:00: MOUTH [place] 00 EVERY DAY Medical Branch CLOPIDOGREL 2020-1 Yes [id number] TAKE 1 [facility] 75 mg 2-15 [id number] TABLET BY ity of tablet 00:00: MOUTH [place] 00 EVERY DAY Medical Branch CLOPIDOGREL 2020-1 Yes [id number] TAKE 1 [facility] 75 mg 2-15 [id number] TABLET BY ity of tablet 00:00: MOUTH [place] 00 EVERY DAY Medical Branch CLOPIDOGREL 2020-1 Yes [id number] TAKE 1 [facility] 75 mg 2-15 [id number] TABLET BY ity of tablet 00:00: MOUTH [place] 00 EVERY DAY Medical Branch CLOPIDOGREL 2020-1 Yes [id number] TAKE 1 [facility] 75 mg 2-15 [id number] TABLET BY ity of tablet 00:00: MOUTH [place] 00 EVERY DAY Medical Branch CLOPIDOGREL 2020-1 Yes [id number] TAKE 1 [facility] 75 mg 2-15 [id number] TABLET BY [facility]y of tablet 00:00: MOUTH [place] 00 EVERY DAY Medical Branch CLOPIDOGREL 2020-1 Yes [id number] TAKE 1 [facility] 75 mg 2-15 [id number] TABLET BY ity of tablet 00:00: MOUTH [place] 00 EVERY DAY Medical Branch CLOPIDOGREL 2020-1 Yes [id number] TAKE 1 [facility] 75 mg 2-15 [id number] TABLET BY ity of tablet 00:00: MOUTH [place] 00 EVERY DAY Medical Branch CLOPIDOGREL 2020-1 Yes [id number] TAKE 1 [facility] 75 mg 2-15 [id number] TABLET BY ity of tablet 00:00: MOUTH [place] 00 EVERY DAY Medical Branch CLOPIDOGREL 2020-1 Yes [id number] TAKE 1 [facility] 75 mg 2-15 [id number] TABLET BY ity of tablet 00:00: MOUTH [place] 00 EVERY DAY Medical Branch CLOPIDOGREL 2020-1 Yes [id number] TAKE 1 [facility] 75 mg 2-15 [id number] TABLET BY ity of tablet 00:00: MOUTH [place] 00 EVERY DAY Medical Branch CLOPIDOGREL 2020-1 Yes [id number] TAKE 1 [facility] 75 mg 2-15 [id number] TABLET BY ity of tablet 00:00: MOUTH [place] 00 EVERY DAY Medical Branch CLOPIDOGREL 2020-1 Yes [id number] TAKE 1 [facility] 75 mg 2-15 [id number] TABLET BY ity of tablet 00:00: MOUTH [place] 00 EVERY DAY Medical Branch CLOPIDOGREL 2020-1 Yes [id number] TAKE 1 [facility] 75 mg 2-15 [id number] TABLET BY ity of tablet 00:00: MOUTH [place] 00 EVERY DAY Medical Branch CLOPIDOGREL 2020-1 Yes [id number] TAKE 1 [facility] 75 mg 2-15 [id number] TABLET BY ity of tablet 00:00: MOUTH [place] 00 EVERY DAY Medical Branch PRAVASTATIN 2020-2020- No [id number] 10mg TAKE 1 [facility] 10 mg 2-15 05-11 [id number] TABLET BY ity of tablet 00:00: 00:00 MOUTH [place] 00 :00 EVERY Medical OTHER DAY Branch PRAVASTATIN 2020-1 2020- No [id number] 10mg TAKE 1 [facility] 10 mg 2-15 05-11 [id number] TABLET BY ity of tablet 00:00: 00:00 MOUTH [place] 00 :00 EVERY Medical OTHER DAY Branch gabapentin 2020- Yes [id number] 100mg Take 1 [facility] 100 mg 2-14 [id number] capsule by ity o f capsule 00:00: mouth 3 [place] 00 (three) Medical times Branch daily. gabapentin 2019-09 Yes [id number] 100mg Take 1 [facility] 100 mg 2-14 [id number] capsule by ity o f capsule 00:00: mouth 3 [place] 00 (three) Medical times Branch daily. gabapentin 2019-09 Yes [id number] 100mg Take 1 [facility] 100 mg 2-14 [id number] capsule by ity o f capsule 00:00: mouth 3 [place] 00 (three) Medical times Branch daily. gabapentin 2019-09 Yes [id number] 100mg Take 1 [facility] 100 mg 2-14 [id number] capsule by ity o f capsule 00:00: mouth 3 [place] 00 (three) Medical times Branch daily. gabapentin 2019-09- No [id number] 100mg Take 1 [facility] 100 mg 2-14 -05 [id number] capsule by ity of capsule 00:00: 00:00 mouth 3 [place] 00 :00 (three) Medical times Branch daily. gabapentin 2019-09- No [id number] 100mg Take 1 [facility] 100 mg 2-14 - [id number] capsule by ity of capsule 00:00: 00:00 mouth 3 [place] 00 :00 (three) Medical times Branch daily. gabapentin 2019-09- No [id number] 100mg Take 1 [facility] 100 mg 2-14 12-14 [id number] capsule by ity of capsule 00:00: 00:00 mouth 3 [place] 00 :00 (three) Medical times Branch daily. cefUROXime 2019-09- No [id number] 500mg Take 1 [facility] 500 mg 2-10 12-18 tablet by ity of tablet 00:00: 05:59 mouth 2 [place] 00 :00 (two) Medical times Branch daily for 7 days. cefUROXime 2019-09- No [id number] 500mg Take 1 [facility] 500 mg 2-10 12-18 tablet by ity of tablet 00:00: 05:59 mouth 2 [place] 00 :00 (two) Medical times Branch daily for 7 days. cefUROXime 2019- 2020- No [id number] 500mg Take 1 [facility] 500 mg 2-10 12-18 tablet by ity of tablet 00:00: 05:59 mouth 2 [place] 00 :00 (two) Medical times Branch daily for 7 days. cefUROXime 2019-09 2020- No [id number] 500mg Take 1 [facility] 500 mg 2-10 12-18 tablet by ity of tablet 00:00: 05:59 mouth 2 [place] 00 :00 (two) Medical times Branch daily for 7 days. cefUROXime 2020- 2020- No [id number] 500mg Take 1 [facility] 500 mg 2-10 12-18 tablet by ity of tablet 00:00: 05:59 mouth 2 [place] 00 :00 (two) Medical times Branch daily for 7 days. metoprolol 2019- Yes [id number] 25mg Take 1 [facility] nivers succinate 2-09 tablet by ity o f XL 25 mg 24 00:00: mouth 2 [place] tablet 00 (two) Medical times Branch daily. metoprolol 2019- Yes [id number] 25mg Take 1 [facility] n[facility] succinate 2-09 tablet by ity o f XL 25 mg 24 00:00: mouth 2 [place] [facility] tablet 00 (two) Medical times Branch daily. clopidogreL 2019- Yes [id number] 75mg Take 1 [facility] (PLAVIX) 75 2-09 [id number] tablet by i ty of mg tablet 00:00: mouth [place] 00 daily. Medical Branch pravastatin 2019- Yes [id number] 10mg Take 1 [facility] 10 mg 2-09 [id number] tablet by ity of tablet 00:00: mouth [place] 00 every Medical other day. Branch metoprolol 2019- Yes [id number] 25mg Take 1 [facility] nivers succinate 2-09 tablet by ity o f XL 25 mg 24 00:00: mouth 2 [place] [facility] tablet 00 (two) Medical times Branch daily. clopidogreL 2019- Yes [id number] 75mg Take 1 [facility] (PLAVIX) 75 2-09 [id number] tablet by i ty of mg tablet 00:00: mouth [place] 00 daily. Medical Branch pravastatin 2019- Yes [id number] 10mg Take 1 [facility] 10 mg 2-09 [id number] tablet by [facility] of tablet 00:00: mouth [place] 00 every Medical other day. Branch metoprolol 2019- Yes [id number] 25mg Take 1 [facility] succinate 2-09 tablet by [facility] o [facility] XL 25 mg 24 00:00: mouth 2 [place] [facility] tablet 00 (two) Medical times Branch daily. clopidogreL 2019- Yes [id number] 75mg Take 1 [facility] (PLAVIX) 75 2-09 [id number] tablet by i ty of mg tablet 00:00: mouth [place] 00 daily. Medical Branch pravastatin 2019- Yes [id number] 10mg Take 1 [facility] 10 mg 2-09 [id number] tablet by [facility] of tablet 00:00: mouth [place] 00 every Medical other day. Branch metoprolol 2020- Yes [id number] 25mg Take 1 [facility] succinate 2-09 tablet by [facility] o f XL 25 mg 24 00:00: mouth 2 [place] [facility] tablet 00 (two) Medical times Branch daily. clopidogreL 2020- Yes [id number] 75mg Take 1 [facility] (PLAVIX) 75 2-09 [id number] tablet by i ty of mg tablet 00:00: mouth [place] 00 daily. Medical Branch pravastatin 2020- Yes [id number] 10mg Take 1 [facility] 10 mg 2-09 [id number] tablet by [facility] of tablet 00:00: mouth [place] 00 every Medical other day. Branch metoprolol 2020- Yes [id number] 25mg Take 1 [facility] succinate 2-09 tablet by [facility] o f XL 25 mg 24 00:00: mouth 2 [place] [facility] tablet 00 (two) Medical times Branch daily. metoprolol 2020- Yes [id number] 25mg Take 1 [facility] succinate 2-09 tablet by [facility] o f XL 25 mg 24 00:00: mouth 2 [place] [facility] tablet 00 (two) Medical times [facility] daily. clopidogreL 2020- Yes [id number] 75mg Take 1 [facility] (PLAVIX) 75 2-09 [id number] tablet by i ty of mg tablet 00:00: mouth [place] 00 daily. Medical Branch pravastatin 2019- Yes [id number] 10mg Take 1 [facility] 10 mg 2-09 [id number] tablet by [facility] of tablet 00:00: mouth [place] 00 every Medical other day. Branch metoprolol 2020- Yes [id number] 25mg Take 1 [facility] succinate 2-09 tablet by [facility] o f XL 25 mg 24 00:00: mouth 2 [place] [facility] tablet 00 (two) Medical times [facility] daily. metoprolol 2020-1 Yes [id number] 25mg Take 1 [facility] succinate 2-09 tablet by [facility] o f XL 25 mg 24 00:00: mouth 2 [place] [facility] tablet 00 (two) Medical times [facility] daily. metoprolol 2020- Yes [id number] 25mg Take 1 [facility] succinate 2-09 tablet by [facility] o f XL 25 mg 24 00:00: mouth 2 [place] [facility] tablet 00 (two) Medical times [facility] daily. metoprolol 2020- Yes [id number] 25mg Take 1 [facility] succinate 2-09 tablet by [facility] f XL 25 mg 24 00:00: mouth 2 [place] [facility] tablet 00 (two) Medical times [facility] daily. metoprolol 2020-1 Yes [id number] 25mg Take 1 [facility] succinate 2-09 tablet by [facility] o f XL 25 mg 24 00:00: mouth 2 [place] [facility] tablet 00 (two) Medical times [facility] daily. metoprolol 2019- Yes [id number] 25mg Take 1 [facility] succinate 2-09 tablet by [facility] o f XL 25 mg 24 00:00: mouth 2 [place] [facility] tablet 00 (two) Medical times [facility] daily. metoprolol 2020- Yes [id number] 25mg Take 1 [facility] succinate 2-09 tablet by [facility] o f XL 25 mg 24 00:00: mouth 2 [place] [facility] tablet 00 (two) Medical times [facility] daily. metoprolol 2019- Yes [id number] 25mg Take 1 [facility] succinate 2-09 tablet by [facility] o f XL 25 mg 24 00:00: mouth 2 [place] [facility] tablet 00 (two) Medical times [facility] daily. metoprolol 2019- Yes [id number] 25mg Take 1 [facility] succinate 2-09 tablet by [facility] o f XL 25 mg 24 00:00: mouth 2 [place] [facility] tablet 00 (two) Medical times [facility] daily. metoprolol 2019- Yes [id number] 25mg Take 1 [facility] succinate 2-09 tablet by [facility] o f XL 25 mg 24 00:00: mouth 2 [place] [facility] tablet 00 (two) Medical times [facility] daily. metoprolol 2019- Yes [id number] 25mg Take 1 [facility] succinate 2-09 tablet by [facility] o f XL 25 mg 24 00:00: mouth 2 [place] [facility] tablet 00 (two) Medical times [facility] daily. metoprolol 2020-1 Yes [id number] 25mg Take 1 [facility] succinate 2-09 tablet by [facility] o f XL 25 mg 24 00:00: mouth 2 [place] [facility] tablet 00 (two) Medical times [facility] daily. metoprolol 2020-1 Yes [id number] 25mg Take 1 [facility] succinate 2-09 tablet by [facility] o f XL 25 mg 24 00:00: mouth 2 [place] [facility] tablet 00 (two) Medical times [facility] daily. metoprolol 2020- Yes [id number] 25mg Take 1 [facility] succinate 2-09 tablet by [facility] o f XL 25 mg 24 00:00: mouth 2 [place] [facility] tablet 00 (two) Medical times [facility] daily. metoprolol 2020-1 Yes [id number] 25mg Take 1 [facility] succinate 2-09 tablet by [facility] o f XL 25 mg 24 00:00: mouth 2 [place] [facility] tablet 00 (two) Medical times [facility] daily. metoprolol 2019- Yes [id number] 25mg Take 1 [facility] succinate 2-09 tablet by [facility] o f XL 25 mg 24 00:00: mouth 2 [place] [facility] tablet 00 (two) Medical times [facility] daily. metoprolol 2020- Yes [id number] 25mg Take 1 [facility] succinate 2-09 tablet by [facility] o f XL 25 mg 24 00:00: mouth 2 [place] [facility] tablet 00 (two) Medical times [facility] daily. metoprolol 2019- Yes [id number] 25mg Take 1 [facility] succinate 2-09 tablet by [facility] o f XL 25 mg 24 00:00: mouth 2 [place] [facility] tablet 00 (two) Medical times [facility] daily. metoprolol 2019- Yes [id number] 25mg Take 1 [facility] succinate 2-09 tablet by [facility] o f XL 25 mg 24 00:00: mouth 2 [place] [facility] tablet 00 (two) Medical times [facility] daily. metoprolol 2019- Yes [id number] 25mg Take 1 [facility] succinate 2-09 tablet by [facility] o f XL 25 mg 24 00:00: mouth 2 [place] [facility] tablet 00 (two) Medical times [facility] daily. metoprolol 2019- Yes [id number] 25mg Take 1 [facility] succinate 2-09 tablet by [facility] o f XL 25 mg 24 00:00: mouth 2 [place] [facility] tablet 00 (two) Medical times [facility] daily. metoprolol 2020-1 Yes [id number] 25mg Take 1 [facility] succinate 2-09 tablet by [facility] o f XL 25 mg 24 00:00: mouth 2 [place] [facility] tablet 00 (two) Medical times [facility] daily. metoprolol 2020-1 Yes [id number] 25mg Take 1 [facility] succinate 2-09 tablet by [facility] o f XL 25 mg 24 00:00: mouth 2 [place] [facility] tablet 00 (two) Medical times [facility] daily. metoprolol 2019-09 Yes [id number] 25mg Take 1 [facility] succinate 2-09 tablet by [facility] o f XL 25 mg 24 00:00: mouth 2 [place] [facility] tablet 00 (two) Medical times Branch daily. metoprolol 2019-09 Yes [id number] 25mg Take 1 [facility] succinate 2-09 tablet by [facility] o f XL 25 mg 24 00:00: mouth 2 [place] [facility] tablet 00 (two) Medical times [facility] daily. metoprolol 2019-09 Yes [id number] 25mg Take 1 [facility] succinate 2-09 tablet by [facility] o f XL 25 mg 24 00:00: mouth 2 [place] [facility] tablet 00 (two) Medical times [facility] daily. metoprolol 2019-09 Yes [id number] 25mg Take 1 [facility] succinate 2-09 tablet by [facility] o f XL 25 mg 24 00:00: mouth 2 [place] [facility] tablet 00 (two) Medical times [facility] daily. metoprolol 2019-09 Yes [id number] 25mg Take 1 [facility] succinate 2-09 tablet by [facility] o f XL 25 mg 24 00:00: mouth 2 [place] [facility] tablet 00 (two) Medical times [facility] daily. metoprolol 2019-09- No [id number] 25mg Take 1 [facility] succinate 2-09 05-21 tablet by [facility] XL 25 mg 24 00:00: 00:00 mouth 2 [place] hr tablet 00 :00 (two) Medical times Branch daily. clopidogreL 2019-09- No [id number] 75mg Take 1 [facility] (PLAVIX) 75 10-26 [id number] tablet by [facility] of mg tablet 00:00: 00:00 mouth [place] 00 :00 daily. Medical Branch pravastatin 2019-09- No [id number] 10mg Take 1 [facility] 10 mg 10-26 [id number] tablet by [facility] of tablet 00:00: 00:00 mouth [place] 00 :00 every Medical other day. Branch tiZANidine 2019-09 Yes [id number] 4mg Take 1-2 [facility] 4 mg tablet 10-24 [id number] tablets by [facility] of 00:00: mouth [place] 00 every 8 Medical (eight) Branch hours as needed (muscle pain or spasm). metformin 2019-09 Yes [id number] 500mg Take 1 [facility] ER 500 mg 2-07 tablet by [facility] o f 24 hr 00:00: mouth 2 [place] tablet 00 (two) Medical times Branch daily with meals. triamterene 2019-09 Yes [id number] 1{tbl} Take 1 [facility] -hydrochlor 2-07 tablet by [facility] of othiazid 00:00: mouth [place] 37.5-25 mg 00 daily. Medical tablet Branch tiZANidine 2019-09 Yes [id number] 4mg Take 1-2 [facility] 4 mg tablet 2-07 [id number] tablets by [facility] of 00:00: mouth [place] 00 every 8 Medical (eight) Branch hours as needed (muscle pain or spasm). metformin 2019-09 Yes [id number] 500mg Take 1 [facility] ER 500 mg 2-07 tablet by [facility] o f 24 hr 00:00: mouth 2 [place] tablet 00 (two) Medical times Branch daily with meals. triamterene 2019-09 Yes [id number] 1{tbl} Take 1 [facility] -hydrochlor 2-07 tablet by [facility] of othiazid 00:00: mouth [place] 37.5-25 mg 00 daily. Medical tablet Branch tiZANidine 2019-09 Yes [id number] 4mg Take 1-2 [facility] 4 mg tablet 2-07 [id number] tablets by [facility] of 00:00: mouth [place] 00 every 8 Medical (eight) Branch hours as needed (muscle pain or spasm). metformin 2019-09 Yes [id number] 500mg Take 1 [facility] ER 500 mg 2-07 tablet by [facility] o f 24 hr 00:00: mouth 2 [place] tablet 00 (two) Medical times Branch daily with meals. triamterene 2019-09 Yes [id number] 1{tbl} Take 1 [facility] -hydrochlor 2-07 tablet by [facility] of othiazid 00:00: mouth [place] 37.5-25 mg 00 daily. Medical tablet Branch tiZANidine 2019-09 Yes [id number] 4mg Take 1-2 [facility] 4 mg tablet 2-07 [id number] tablets by [facility] of 00:00: mouth [place] 00 every 8 Medical (eight) Branch hours as needed (muscle pain or spasm). metformin 2019-09 Yes [id number] 500mg Take 1 [facility] ER 500 mg 2-07 tablet by [facility] o f 24 hr 00:00: mouth 2 [place] tablet 00 (two) Medical times Branch daily with meals. triamterene 2019-09 Yes [id number] 1{tbl} Take 1 [facility] -hydrochlor 2-07 tablet by [facility] of othiazid 00:00: mouth [place] 37.5-25 mg 00 daily. Medical tablet Branch tiZANidine 2019-09 Yes [id number] 4mg Take 1-2 [facility] 4 mg tablet 2-07 [id number] tablets by [facility] of 00:00: mouth [place] 00 every 8 Medical (eight) Branch hours as needed (muscle pain or spasm). metformin 2019-09 Yes [id number] 500mg Take 1 [facility] ER 500 mg 2-07 tablet by [facility] o f 24 hr 00:00: mouth 2 [place] tablet 00 (two) Medical times Branch daily with meals. triamterene 2019-09 Yes [id number] 1{tbl} Take 1 [facility] -hydrochlor 2-07 tablet by [facility] of othiazid 00:00: mouth [place] 37.5-25 mg 00 daily. Medical tablet Branch tiZANidine 2019-09 Yes [id number] 4mg Take 1-2 [facility] 4 mg tablet 2-07 [id number] tablets by [facility] of 00:00: mouth [place] 00 every 8 Medical (eight) Branch hours as needed (muscle pain or spasm). metformin 2019-09 Yes [id number] 500mg Take 1 [facility] ER 500 mg 2-07 tablet by [facility] o f 24 hr 00:00: mouth 2 [place] tablet 00 (two) Medical times Branch daily with meals. triamterene 2019-09 Yes [id number] 1{tbl} Take 1 [facility] -hydrochlor 2-07 tablet by [facility] of othiazid 00:00: mouth [place] 37.5-25 mg 00 daily. Medical tablet Branch tiZANidine 2019-09 Yes [id number] 4mg Take 1-2 [facility] 4 mg tablet 2-07 [id number] tablets by [facility] of 00:00: mouth [place] 00 every 8 Medical (eight) Branch hours as needed (muscle pain or spasm). metformin 2019-09 Yes [id number] 500mg Take 1 [facility] ER 500 mg 2-07 tablet by [facility] o f 24 hr 00:00: mouth 2 [place] tablet 00 (two) Medical times Branch daily with meals. triamterene 2019-09 Yes [id number] 1{tbl} Take 1 [facility] -hydrochlor 2-07 tablet by [facility] of othiazid 00:00: mouth [place] 37.5-25 mg 00 daily. Medical tablet Branch tiZANidine 2019-09 Yes [id number] 4mg Take 1-2 [facility] 4 mg tablet 2-07 [id number] tablets by [facility] of 00:00: mouth [place] 00 every 8 Medical (eight) Branch hours as needed (muscle pain or spasm). metformin 2019-09 Yes [id number] 500mg Take 1 [facility] ER 500 mg 2-07 tablet by [facility] o f 24 hr 00:00: mouth 2 [place] tablet 00 (two) Medical times Branch daily with meals. triamterene 2019-09 Yes [id number] 1{tbl} Take 1 [facility] -hydrochlor 2-07 tablet by [facility]y of othiazid 00:00: mouth [place] 37.5-25 mg 00 daily. Medical tablet Branch tiZANidine 2019-09 Yes [id number] 4mg Take 1-2 [facility] 4 mg tablet 2-07 [id number] tablets by [facility] of 00:00: mouth [place] 00 every 8 Medical (eight) Branch hours as needed (muscle pain or spasm). metformin 2019-09 Yes [id number] 500mg Take 1 [facility] ER 500 mg 2-07 tablet by [facility] o f 24 hr 00:00: mouth 2 [place] tablet 00 (two) Medical times Branch daily with meals. triamterene 2019-09 Yes [id number] 1{tbl} Take 1 [facility] -hydrochlor 2-07 tablet by [facility] of othiazid 00:00: mouth [place] 37.5-25 mg 00 daily. Medical tablet Branch tiZANidine 2019-09 Yes [id number] 4mg Take 1-2 [facility] 4 mg tablet 2-07 [id number] tablets by [facility] of 00:00: mouth [place] 00 every 8 Medical (eight) Branch hours as needed (muscle pain or spasm). metformin 2019-09 Yes [id number] 500mg Take 1 [facility] ER 500 mg 2-07 tablet by [facility] o f 24 hr 00:00: mouth 2 [place] tablet 00 (two) Medical times Branch daily with meals. triamterene 2019-09 Yes [id number] 1{tbl} Take 1 [facility] -hydrochlor 2-07 tablet by [facility] of othiazid 00:00: mouth [place] 37.5-25 mg 00 daily. Medical tablet Branch tiZANidine 2019-09 Yes [id number] 4mg Take 1-2 [facility] 4 mg tablet 2-07 [id number] tablets by [facility] of 00:00: mouth [place] 00 every 8 Medical (eight) Branch hours as needed (muscle pain or spasm). metformin 2019-09 Yes [id number] 500mg Take 1 [facility] ER 500 mg 2-07 tablet by [facility] o f 24 hr 00:00: mouth 2 [place] tablet 00 (two) Medical times Branch daily with meals. triamterene 2019-09 Yes [id number] 1{tbl} Take 1 [facility] -hydrochlor 2-07 tablet by [facility] of othiazid 00:00: mouth [place] 37.5-25 mg 00 daily. Medical tablet Branch tiZANidine 2019-09 Yes [id number] 4mg Take 1-2 [facility] 4 mg tablet 2-07 [id number] tablets by [facility] of 00:00: mouth [place] 00 every 8 Medical (eight) Branch hours as needed (muscle pain or spasm). metformin 2019-09 Yes [id number] 500mg Take 1 [facility] ER 500 mg 2-07 tablet by [facility] o f 24 hr 00:00: mouth 2 [place] tablet 00 (two) Medical times Branch daily with meals. triamterene 2019-09 Yes [id number] 1{tbl} Take 1 [facility] -hydrochlor 2-07 tablet by [facility] of othiazid 00:00: mouth [place] 37.5-25 mg 00 daily. Medical tablet Branch tiZANidine 2019-09 Yes [id number] 4mg Take 1-2 [facility] 4 mg tablet 2-07 [id number] tablets by [facility]y of 00:00: mouth [place] 00 every 8 Medical (eight) Branch hours as needed (muscle pain or spasm). metformin 2019-09 Yes [id number] 500mg Take 1 [facility] ER 500 mg 2-07 tablet by [facility] o f 24 hr 00:00: mouth 2 [place] tablet 00 (two) Medical times Branch daily with meals. triamterene 2019-09 Yes [id number] 1{tbl} Take 1 [facility] -hydrochlor 2-07 tablet by [facility] of othiazid 00:00: mouth [place] 37.5-25 mg 00 daily. Medical tablet Branch tiZANidine 2019-09 Yes [id number] 4mg Take 1-2 [facility] 4 mg tablet 2-07 [id number] tablets by [facility] of 00:00: mouth [place] 00 every 8 Medical (eight) Branch hours as needed (muscle pain or spasm). metformin 2019-09 Yes [id number] 500mg Take 1 [facility] ER 500 mg 2-07 tablet by [facility] o f 24 hr 00:00: mouth 2 [place] tablet 00 (two) Medical times Branch daily with meals. triamterene 2019-09 Yes [id number] 1{tbl} Take 1 [facility] -hydrochlor 2-07 tablet by [facility] of othiazid 00:00: mouth [place] 37.5-25 mg 00 daily. Medical tablet Branch tiZANidine 2019-09 Yes [id number] 4mg Take 1-2 [facility] 4 mg tablet 2-07 [id number] tablets by [facility] of 00:00: mouth [place] 00 every 8 Medical (eight) Branch hours as needed (muscle pain or spasm). metformin 2019-09 Yes [id number] 500mg Take 1 [facility] ER 500 mg 2-07 tablet by [facility] o f 24 hr 00:00: mouth 2 [place] tablet 00 (two) Medical times Branch daily with meals. triamterene 2019-09 Yes [id number] 1{tbl} Take 1 [facility] -hydrochlor 2-07 tablet by [facility] of othiazid 00:00: mouth [place] 37.5-25 mg 00 daily. Medical tablet Branch tiZANidine 2019-09 Yes [id number] 4mg Take 1-2 [facility] 4 mg tablet 2-07 [id number] tablets by [facility] of 00:00: mouth [place] 00 every 8 Medical (eight) Branch hours as needed (muscle pain or spasm). metformin 2019-09 Yes [id number] 500mg Take 1 [facility] ER 500 mg 2-07 tablet by [facility] o f 24 hr 00:00: mouth 2 [place] tablet 00 (two) Medical times Branch daily with meals. triamterene 2019-09 Yes [id number] 1{tbl} Take 1 [facility] -hydrochlor 2-07 tablet by [facility] of othiazid 00:00: mouth [place] 37.5-25 mg 00 daily. Medical tablet Branch tiZANidine 2019-09 Yes [id number] 4mg Take 1-2 [facility] 4 mg tablet 2-07 [id number] tablets by [facility] of 00:00: mouth [place] 00 every 8 Medical (eight) Branch hours as needed (muscle pain or spasm). metformin 2019-09 Yes [id number] 500mg Take 1 [facility] ER 500 mg 2-07 tablet by [facility] o f 24 hr 00:00: mouth 2 [place] tablet 00 (two) Medical times Branch daily with meals. triamterene 2019-09 Yes [id number] 1{tbl} Take 1 [facility] -hydrochlor 2-07 tablet by [facility] of othiazid 00:00: mouth [place] 37.5-25 mg 00 daily. Medical tablet Branch tiZANidine 2019-09 Yes [id number] 4mg Take 1-2 [facility] 4 mg tablet 2-07 [id number] tablets by [facility] of 00:00: mouth [place] 00 every 8 Medical (eight) Branch hours as needed (muscle pain or spasm). metformin 2019-09 Yes [id number] 500mg Take 1 [facility] ER 500 mg 2-07 tablet by [facility] o f 24 hr 00:00: mouth 2 [place] tablet 00 (two) Medical times Branch daily with meals. triamterene 2019-09 Yes [id number] 1{tbl} Take 1 [facility] -hydrochlor 2-07 tablet by [facility] of othiazid 00:00: mouth [place] 37.5-25 mg 00 daily. Medical tablet Branch tiZANidine 2019-09 Yes [id number] 4mg Take 1-2 [facility] 4 mg tablet 2-07 [id number] tablets by [facility] of 00:00: mouth [place] 00 every 8 Medical (eight) Branch hours as needed (muscle pain or spasm). metformin 2019-09 Yes [id number] 500mg Take 1 [facility] ER 500 mg 2-07 tablet by [facility] o f 24 hr 00:00: mouth 2 [place] tablet 00 (two) Medical times Branch daily with meals. triamterene 2019-09 Yes [id number] 1{tbl} Take 1 [facility] -hydrochlor 2-07 tablet by [facility] of othiazid 00:00: mouth [place] 37.5-25 mg 00 daily. Medical tablet Branch tiZANidine 2019-09 Yes [id number] 4mg Take 1-2 [facility] 4 mg tablet 2-07 [id number] tablets by [facility] of 00:00: mouth [place] 00 every 8 Medical (eight) Branch hours as needed (muscle pain or spasm). metformin 2019-09 Yes [id number] 500mg Take 1 [facility] ER 500 mg 2-07 tablet by [facility] o f 24 hr 00:00: mouth 2 [place] tablet 00 (two) Medical times Branch daily with meals. triamterene 2019-09 Yes [id number] 1{tbl} Take 1 [facility] -hydrochlor 2-07 tablet by [facility] of othiazid 00:00: mouth [place] 37.5-25 mg 00 daily. Medical tablet Branch tiZANidine 2019-09 Yes [id number] 4mg Take 1-2 [facility] 4 mg tablet 2-07 [id number] tablets by [facility] of 00:00: mouth [place] 00 every 8 Medical (eight) Branch hours as needed (muscle pain or spasm). metformin 2019-09 Yes [id number] 500mg Take 1 [facility] ER 500 mg 2-07 tablet by [facility] o f 24 hr 00:00: mouth 2 [place] tablet 00 (two) Medical times Branch daily with meals. triamterene 2019-09 Yes [id number] 1{tbl} Take 1 [facility] -hydrochlor 2-07 tablet by [facility] of othiazid 00:00: mouth [place] 37.5-25 mg 00 daily. Medical tablet Branch tiZANidine 2019-09 Yes [id number] 4mg Take 1-2 [facility] 4 mg tablet 2-07 [id number] tablets by [facility] of 00:00: mouth [place] 00 every 8 Medical (eight) Branch hours as needed (muscle pain or spasm). metformin 2019-09 Yes [id number] 500mg Take 1 [facility] ER 500 mg 2-07 tablet by [facility] o f 24 hr 00:00: mouth 2 [place] tablet 00 (two) Medical times Branch daily with meals. triamterene 2019-09 Yes [id number] 1{tbl} Take 1 [facility] -hydrochlor 2-07 tablet by [facility] of othiazid 00:00: mouth [place] 37.5-25 mg 00 daily. Medical tablet Branch tiZANidine 2019-09 Yes [id number] 4mg Take 1-2 [facility] 4 mg tablet 2-07 [id number] tablets by [facility] of 00:00: mouth [place] 00 every 8 Medical (eight) Branch hours as needed (muscle pain or spasm). metformin 2019-09 Yes [id number] 500mg Take 1 [facility] ER 500 mg 2-07 tablet by [facility] o f 24 hr 00:00: mouth 2 [place] tablet 00 (two) Medical times Branch daily with meals. triamterene 2019-09 Yes [id number] 1{tbl} Take 1 [facility] -hydrochlor 2-07 tablet by [facility] of othiazid 00:00: mouth [place] 37.5-25 mg 00 daily. Medical tablet Branch tiZANidine 2019-09 Yes [id number] 4mg Take 1-2 [facility] 4 mg tablet 2-07 [id number] tablets by [facility] of 00:00: mouth [place] 00 every 8 Medical (eight) Branch hours as needed (muscle pain or spasm). metformin 2019-09 Yes [id number] 500mg Take 1 [facility] ER 500 mg 2-07 tablet by [facility] o f 24 hr 00:00: mouth 2 [place] tablet 00 (two) Medical times Branch daily with meals. triamterene 2019-09 Yes [id number] 1{tbl} Take 1 [facility] -hydrochlor 2-07 tablet by [facility] of othiazid 00:00: mouth [place] 37.5-25 mg 00 daily. Medical tablet Branch tiZANidine 2019-09 Yes [id number] 4mg Take 1-2 [facility] 4 mg tablet 2-07 [id number] tablets by [facility] of 00:00: mouth [place] 00 every 8 Medical (eight) Branch hours as needed (muscle pain or spasm). metformin 2019-09 Yes [id number] 500mg Take 1 [facility] ER 500 mg 2-07 tablet by [facility] o f 24 hr 00:00: mouth 2 [place] tablet 00 (two) Medical times Branch daily with meals. triamterene 2019-09 Yes [id number] 1{tbl} Take 1 [facility] -hydrochlor 2-07 tablet by [facility] of othiazid 00:00: mouth [place] 37.5-25 mg 00 daily. Medical tablet Branch tiZANidine 2019-09 Yes [id number] 4mg Take 1-2 [facility] 4 mg tablet 2-07 [id number] tablets by [facility] of 00:00: mouth [place] 00 every 8 Medical (eight) Branch hours as needed (muscle pain or spasm). metformin 2019-09 Yes [id number] 500mg Take 1 [facility] ER 500 mg 2-07 tablet by [facility] o f 24 hr 00:00: mouth 2 [place] tablet 00 (two) Medical times Branch daily with meals. triamterene 2019-09 Yes [id number] 1{tbl} Take 1 [facility] -hydrochlor 2-07 tablet by [facility] of othiazid 00:00: mouth [place] 37.5-25 mg 00 daily. Medical tablet Branch tiZANidine 2019-09 Yes [id number] 4mg Take 1-2 [facility] 4 mg tablet 2-07 [id number] tablets by [facility] of 00:00: mouth [place] 00 every 8 Medical (eight) Branch hours as needed (muscle pain or spasm). metformin 2019-09 Yes [id number] 500mg Take 1 [facility] ER 500 mg 2-07 tablet by [facility] o f 24 hr 00:00: mouth 2 [place] tablet 00 (two) Medical times Branch daily with meals. triamterene 2019-09 Yes [id number] 1{tbl} Take 1 [facility] -hydrochlor 2-07 tablet by [facility] of othiazid 00:00: mouth [place] 37.5-25 mg 00 daily. Medical tablet Branch tiZANidine 2019-09 Yes [id number] 4mg Take 1-2 [facility] 4 mg tablet 2-07 [id number] tablets by [facility] of 00:00: mouth [place] 00 every 8 Medical (eight) Branch hours as needed (muscle pain or spasm). metformin 2019-09 Yes [id number] 500mg Take 1 [facility] ER 500 mg 2-07 tablet by [facility] o f 24 hr 00:00: mouth 2 [place] tablet 00 (two) Medical times Branch daily with meals. triamterene 2019-09 Yes [id number] 1{tbl} Take 1 [facility] -hydrochlor 2-07 tablet by [facility] of othiazid 00:00: mouth [place] 37.5-25 mg 00 daily. Medical tablet Branch tiZANidine 2019-09 Yes [id number] 4mg Take 1-2 [facility] 4 mg tablet 2-07 [id number] tablets by [facility] of 00:00: mouth [place] 00 every 8 Medical (eight) Branch hours as needed (muscle pain or spasm). metformin 2019-09 Yes [id number] 500mg Take 1 [facility] ER 500 mg 2-07 tablet by [facility] o f 24 hr 00:00: mouth 2 [place] tablet 00 (two) Medical times Branch daily with meals. triamterene 2019-09 Yes [id number] 1{tbl} Take 1 [facility] -hydrochlor 2-07 tablet by [facility] of othiazid 00:00: mouth [place] 37.5-25 mg 00 daily. Medical tablet Branch tiZANidine 2019-09 Yes [id number] 4mg Take 1-2 [facility] 4 mg tablet 2-07 [id number] tablets by [facility] of 00:00: mouth [place] 00 every 8 Medical (eight) Branch hours as needed (muscle pain or spasm). metformin 2019-09 Yes [id number] 500mg Take 1 [facility] ER 500 mg 2-07 tablet by [facility] o f 24 hr 00:00: mouth 2 [place] tablet 00 (two) Medical times Branch daily with meals. triamterene 2019-09 Yes [id number] 1{tbl} Take 1 [facility] -hydrochlor 2-07 tablet by [facility] of othiazid 00:00: mouth [place] 37.5-25 mg 00 daily. Medical tablet Branch tiZANidine 2019-09 Yes [id number] 4mg Take 1-2 [facility] 4 mg tablet 2-07 [id number] tablets by [facility] of 00:00: mouth [place] 00 every 8 Medical (eight) Branch hours as needed (muscle pain or spasm). metformin 2019-09 Yes [id number] 500mg Take 1 [facility] ER 500 mg 2-07 tablet by [facility] o f 24 hr 00:00: mouth 2 [place] tablet 00 (two) Medical times Branch daily with meals. triamterene 2019-09 Yes [id number] 1{tbl} Take 1 [facility] -hydrochlor 2-07 tablet by [facility] of othiazid 00:00: mouth [place] 37.5-25 mg 00 daily. Medical tablet Branch tiZANidine 2019-09 Yes [id number] 4mg Take 1-2 [facility] 4 mg tablet 2-07 [id number] tablets by [facility] of 00:00: mouth [place] 00 every 8 Medical (eight) Branch hours as needed (muscle pain or spasm). metformin 2019-09 Yes [id number] 500mg Take 1 [facility] ER 500 mg 2-07 tablet by [facility] o f 24 hr 00:00: mouth 2 [place] tablet 00 (two) Medical times Branch daily with meals. triamterene 2019-09 Yes [id number] 1{tbl} Take 1 [facility] -hydrochlor 2-07 tablet by [facility] of othiazid 00:00: mouth [place] 37.5-25 mg 00 daily. Medical tablet Branch tiZANidine 2019-09 Yes [id number] 4mg Take 1-2 [facility] 4 mg tablet 2-07 [id number] tablets by [facility] of 00:00: mouth [place] 00 every 8 Medical (eight) Branch hours as needed (muscle pain or spasm). metformin 2019-09 Yes [id number] 500mg Take 1 [facility] ER 500 mg 2-07 tablet by [facility] o f 24 hr 00:00: mouth 2 [place] tablet 00 (two) Medical times Branch daily with meals. triamterene 2019-09 Yes [id number] 1{tbl} Take 1 [facility] -hydrochlor 2-07 tablet by [facility] of othiazid 00:00: mouth [place] 37.5-25 mg 00 daily. Medical tablet Branch tiZANidine 2019-09 Yes [id number] 4mg Take 1-2 [facility] 4 mg tablet 2-07 [id number] tablets by [facility] of 00:00: mouth [place] 00 every 8 Medical (eight) Branch hours as needed (muscle pain or spasm). metformin 2019-09 Yes [id number] 500mg Take 1 [facility] ER 500 mg 2-07 tablet by it[facility] o f 24 hr 00:00: mouth 2 [place] tablet 00 (two) Medical times Branch daily with meals. triamterene 2019-09 Yes [id number] 1{tbl} Take 1 [facility] -hydrochlor 2-07 tablet by ity of othiazid 00:00: mouth [place] 37.5-25 mg 00 daily. Medical tablet Branch tiZANidine 2019-09 Yes [id number] 4mg Take 1-2 [facility] 4 mg tablet 2-07 [id number] tablets by ity of 00:00: mouth [place] 00 every 8 Medical (eight) Branch hours as needed (muscle pain or spasm). triamterene 2019-09 Yes [id number] 1{tbl} Take 1 [facility] -hydrochlor 2-07 tablet by ity of othiazid 00:00: mouth [place] 37.5-25 mg 00 daily. Medical tablet Branch tiZANidine 2019-09 Yes [id number] 4mg Take 1-2 [facility] 4 mg tablet 2-07 [id number] tablets by ity of 00:00: mouth [place] 00 every 8 Medical (eight) Branch hours as needed (muscle pain or spasm). triamterene 2019-09 Yes [id number] 1{tbl} Take 1 [facility] -hydrochlor 2-07 tablet by ity of othiazid 00:00: mouth [place] 37.5-25 mg 00 daily. Medical tablet Branch tiZANidine 2019-09 Yes [id number] 4mg Take 1-2 [facility] 4 mg tablet 2-07 [id number] tablets by ity of 00:00: mouth [place] 00 every 8 Medical (eight) Branch hours as needed (muscle pain or spasm). triamterene 2020-1 Yes [id number] 1{tbl} Take 1 [facility] -hydrochlor 2-07 tablet by ity of othiazid 00:00: mouth [place] 37.5-25 mg 00 daily. Medical tablet Branch tiZANidine 2020- Yes [id number] 4mg Take 1-2 [facility] 4 mg tablet 2-07 [id number] tablets by it[facility] of 00:00: mouth [place] 00 every 8 Medical (eight) Branch hours as needed (muscle pain or spasm). triamterene 2020- Yes [id number] 1{tbl} Take 1 [facility] -hydrochlor 2-07 tablet by ity of othiazid 00:00: mouth [place] 37.5-25 mg 00 daily. Medical tablet Branch tiZANidine 2019- Yes [id number] 4mg Take 1-2 [facility] 4 mg tablet 2-07 [id number] tablets by ity of 00:00: mouth [place] 00 every 8 Medical (eight) Branch hours as needed (muscle pain or spasm). triamterene 2020- Yes [id number] 1{tbl} Take 1 [facility] -hydrochlor 2-07 tablet by ity of othiazid 00:00: mouth [place] 37.5-25 mg 00 daily. Medical tablet Branch tiZANidine 2019- Yes [id number] 4mg Take 1-2 [facility] 4 mg tablet 2-07 [id number] tablets by ity of 00:00: mouth [place] 00 every 8 Medical (eight) Branch hours as needed (muscle pain or spasm). triamterene 2020- Yes [id number] 1{tbl} Take 1 [facility] -hydrochlor 2-07 tablet by ity of othiazid 00:00: mouth [place] 37.5-25 mg 00 daily. Medical tablet Branch tiZANidine 2020- Yes [id number] 4mg Take 1-2 [facility] 4 mg tablet 2-07 [id number] tablets by ity of 00:00: mouth [place] 00 every 8 Medical (eight) Branch hours as needed (muscle pain or spasm). triamterene 2020- Yes [id number] 1{tbl} Take 1 [facility] -hydrochlor 2-07 tablet by ity of othiazid 00:00: mouth [place] 37.5-25 mg 00 daily. Medical tablet Branch tiZANidine 2020- Yes [id number] 4mg Take 1-2 [facility] 4 mg tablet 2-07 [id number] tablets by ity of 00:00: mouth [place] 00 every 8 Medical (eight) Branch hours as needed (muscle pain or spasm). triamterene 2019-09 Yes [id number] 1{tbl} Take 1 [facility] -hydrochlor 2-07 tablet by ity of othiazid 00:00: mouth [place] 37.5-25 mg 00 daily. Medical tablet Branch tiZANidine 2019-09 Yes [id number] 4mg Take 1-2 [facility] 4 mg tablet 2- [id number] tablets by ity of 00:00: mouth [place] 00 every 8 Medical (eight) Branch hours as needed (muscle pain or spasm). tiZANidine 2019-09 Yes [id number] 4mg Take 1-2 [facility] 4 mg tablet 2- [id number] tablets by ity of 00:00: mouth [place] 00 every 8 Medical (eight) Branch hours as needed (muscle pain or spasm). tiZANidine 2019-09 Yes [id number] 4mg Take 1-2 [facility] 4 mg tablet 2- [id number] tablets by ity of 00:00: mouth [place] 00 every 8 Medical (eight) Branch hours as needed (muscle pain or spasm). tiZANidine 2019-09 Yes [id number] 4mg Take 1-2 [facility] 4 mg tablet 2- [id number] tablets by ity of 00:00: mouth [place] 00 every 8 Medical (eight) Branch hours as needed (muscle pain or spasm). tiZANidine 2019-09 Yes [id number] 4mg Take 1-2 [facility] 4 mg tablet 2- [id number] tablets by ity of 00:00: mouth [place] 00 every 8 Medical (eight) Branch hours as needed (muscle pain or spasm). tiZANidine 2019-09 Yes [id number] 4mg Take 1-2 [facility] 4 mg tablet 2- [id number] tablets by ity of 00:00: mouth [place] 00 every 8 Medical (eight) Branch hours as needed (muscle pain or spasm). tiZANidine 2019-09 Yes [id number] 4mg Take 1-2 [facility] 4 mg tablet 2- [id number] tablets by ity of 00:00: mouth [place] 00 every 8 Medical (eight) Branch hours as needed (muscle pain or spasm). tiZANidine 2019-09 Yes [id number] 4mg Take 1-2 [facility] 4 mg tablet 2- [id number] tablets by ity of 00:00: mouth [place] 00 every 8 Medical (eight) Branch hours as needed (muscle pain or spasm). tiZANidine 2019-09 Yes [id number] 4mg Take 1-2 [facility] 4 mg tablet 2- [id number] tablets by ity of 00:00: mouth [place] 00 every 8 Medical (eight) Branch hours as needed (muscle pain or spasm). tiZANidine 2019-09 Yes [id number] 4mg Take 1-2 [facility] 4 mg tablet 2- [id number] tablets by ity of 00:00: mouth [place] 00 every 8 Medical (eight) Branch hours as needed (muscle pain or spasm). tiZANidine 2019-09 Yes [id number] 4mg Take 1-2 [facility] 4 mg tablet 2- [id number] tablets by ity of 00:00: mouth [place] 00 every 8 Medical (eight) Branch hours as needed (muscle pain or spasm). triamterene 2019-09- No [id number] 1{tbl} Take 1 [facility] -hydrochlor 2-03 22-08 tablet by it y of othiazid 00:00: 00:00 mouth [place] 37.5-25 mg 00 :00 daily. Medical tablet Branch metformin 2019-09- No [id number] 500mg Take 1 [facility] ER 500 mg 2-03 21-11 tablet by ity of 24 hr 00:00: 00:00 mouth 2 [place] tablet 00 :00 (two) Medical times Branch daily with meals. metformin 2019-09- No [id number] 500mg Take 1 [facility] ER 500 mg 2- 05-11 tablet by ity of 24 hr 00:00: 00:00 mouth 2 [place] tablet 00 :00 (two) Medical times Branch daily with meals. triamterene 2019-09- No [id number] 1{tbl} Take 1 [facility] -hydrochlor 2-07 12-07 tablet by it y of othiazid 00:00: 00:00 mouth [place] 37.5-25 mg 00 :00 daily. Medical tablet Branch triamterene 2019-09- No [id number] 1{tbl} Take 1 [facility] -hydrochlor 2-07 12-07 tablet by it y of othiazid 00:00: 00:00 mouth [place] 37.5-25 mg 00 :00 daily. Medical tablet Branch METFORMIN 2019-09 Yes [id number] TAKE 1 [facility] ER 750 mg 1-28 TABLET BY ity o f 24 hr 00:00: MOUTH [place] tablet 00 TWICE A Medical DAY WITH Branch MEALS METFORMIN 2019-09 Yes [id number] TAKE 1 [facility] [place] ER 750 mg 1-28 TABLET BY ity o f 24 hr 00:00: MOUTH [place] tablet 00 TWICE A Medical DAY WITH Branch MEALS METFORMIN 2019-09 2020- No [id number] TAKE 1 [facility] ER 750 mg 1-28 12-07 TABLET BY ity of 24 hr 00:00: 00:00 MOUTH [place] tablet 00 :00 TWICE A Medical DAY WITH Branch MEALS METFORMIN 2019-09 2020- No [id number] TAKE 1 [facility] ER 750 mg 1-28 12-07 TABLET BY ity of 24 hr 00:00: 00:00 MOUTH [place] tablet 00 :00 TWICE A Medical DAY WITH Branch MEALS DOCOSAHEXAN 2019-09 Yes Take by [facility] OIC 0-23 mouth. ity of ACID/EPA 17:03: [place] (FISH OIL 43 Medical ORAL) Branch alcaftadine 2019-[address] [facility] (LASTACAFT) 0-23 each eye. ity of 0.25 % Drop 17:03: [place] [address] Medical Branch CYCLOSPORIN 2019-[address] in [facility] E (RESTASIS 0-23 each eye. ity of OPHTHALMIC) 17:03: [place] [address] Medical Branch DOCOSAHEXAN 2019-09 Yes Take by [facility] OIC 0-23 mouth. ity of ACID/EPA 17:03: [place] (FISH OIL 43 Medical ORAL) Branch vitamin E 2019-09 Yes 1000U Take 1,000 [facility] 1,000 unit 0-23 Units by ity o f capsule 17:03: mouth [place] 43 daily. Medical Branch Magnesium 2019- Yes Take by [facility] ers 250 mg Tab 0-23 mouth. ity of 17:03: 43 Medical Branch vitamin B-6 2019- Yes 100mg Take 100 [facility] (VITAMIN 0-23 mg by ity of B-6) 100 mg 17:03: mouth [place] tablet 43 daily. Medical Branch CALCIUM 2019- Yes Take by [facility] CARBONATE/V 0-23 mouth. ity of ITAMIN D3 17:03: [place] (VITAMIN 43 Medical D-3 ORAL) Branch alcaftadine 2019-[address] in [facility] (LASTACAFT) 0-23 each eye. ity of 0.25 % Drop 17:03: [place] [address] Medical Branch CYCLOSPORIN 2019- Yes Place in [facility] E (RESTASIS 0-23 each eye. ity of OPHTHALMIC) 17:03: [place] [address] Medical Branch DOCOSAHEXAN 2019-09 Yes Take by [facility] OIC 0-23 mouth. ity of ACID/EPA 17:03: [place] (FISH OIL 43 Medical ORAL) Branch vitamin E 2019-09 Yes 1000U Take 1,000 [facility] 1,000 unit 0-23 Units by ity o f capsule 17:03: mouth [place] 43 daily. Medical Branch Magnesium 2019- Yes Take by [facility] ers 250 mg Tab 0-23 mouth. ity of 17:03: [place] [address] Medical Branch vitamin B-6 2019-09 Yes 100mg Take 100 [facility] (VITAMIN 0-23 mg by ity of B-6) 100 mg 17:03: mouth [place] tablet 43 daily. Medical Branch CALCIUM 2019-09 Yes Take by [facility] CARBONATE/V 0-23 mouth. ity of ITAMIN D3 17:03: [place] (VITAMIN 43 Medical D-3 ORAL) Branch alcaftadine 2019-[address] in [facility] (LASTACAFT) 0-23 each eye. ity of 0.25 % Drop 17:03: [place] [address] Medical Branch CYCLOSPORIN 2019-[address] in [facility] E (RESTASIS 0-23 each eye. ity of OPHTHALMIC) 17:03: [place] [address] Medical Branch DOCOSAHEXAN 2019-09 Yes Take by [facility] OIC 0-23 mouth. ity of ACID/EPA 17:03: [place] (FISH OIL 43 Medical ORAL) Branch vitamin E 2019- Yes 1000U Take 1,000 [facility] 1,000 unit 0-23 Units by ity o f capsule 17:03: mouth [place] 43 daily. Medical Branch Magnesium 2019- Yes Take by [facility] ers 250 mg Tab 0-23 mouth. ity of 17:03: [place] [address] Medical Branch vitamin B-6 2019-09 Yes 100mg Take 100 [facility] (VITAMIN 0-23 mg by ity of B-6) 100 mg 17:03: mouth [place] tablet 43 daily. Medical Branch CALCIUM 2019- Yes Take by [facility] CARBONATE/V 0-23 mouth. ity of ITAMIN D3 17:03: [place] (VITAMIN 43 Medical D-3 ORAL) Branch alcaftadine 2020- Yes Place in [facility] (LASTACAFT) 0-23 each eye. ity of 0.25 % Drop 17:03: [place] [address] Medical Branch CYCLOSPORIN 2020- Yes Place in [facility] E (RESTASIS 0-23 each eye. ity of OPHTHALMIC) 17:03: [place] [address] Medical Branch DOCOSAHEXAN 2019- Yes Take by [facility] OIC 0-23 mouth. ity of ACID/EPA 17:03: [place] (FISH OIL 43 Medical ORAL) Branch vitamin E 2019- Yes 1000U Take 1,000 [facility] 1,000 unit 0-23 Units by ity o f capsule 17:03: mouth [place] 43 daily. Medical Branch Magnesium 2019- Yes Take by [facility] ers 250 mg Tab 0-23 mouth. ity of 17:03: [place] [address] Medical Branch vitamin B-6 2019- Yes 100mg Take 100 [facility] (VITAMIN 0-23 mg by ity of B-6) 100 mg 17:03: mouth [place] tablet 43 daily. Medical Branch CALCIUM 2019- Yes Take by [facility] CARBONATE/V 0-23 mouth. ity of ITAMIN D3 17:03: [place] (VITAMIN 43 Medical D-3 ORAL) Branch alcaftadine 2019- Yes Place in [facility] (LASTACAFT) 0-23 each eye. ity of 0.25 % Drop 17:03: [place] [address] Medical Branch CYCLOSPORIN 2019- Yes Place in [facility] E (RESTASIS 0-23 each eye. ity of OPHTHALMIC) 17:03: [place] [address] Medical Branch DOCOSAHEXAN 2019- Yes Take by [facility] OIC 0-23 mouth. ity of ACID/EPA 17:03: [place] (FISH OIL 43 Medical ORAL) Branch vitamin E 2019- Yes 1000U Take 1,000 [facility] 1,000 unit 0-23 Units by ity o f capsule 17:03: mouth [place] 43 daily. Medical Branch Magnesium 2020- Yes Take by [facility] ers 250 mg Tab 0-23 mouth. ity of 17:03: [place] [address] Medical Branch vitamin B-6 2019- Yes 100mg Take 100 [facility] (VITAMIN 0-23 mg by ity of B-6) 100 mg 17:03: mouth [place] tablet 43 daily. Medical Branch CALCIUM 2020- Yes Take by [facility] CARBONATE/V 0-23 mouth. ity of ITAMIN D3 17:03: [place] (VITAMIN 43 Medical D-3 ORAL) Branch alcaftadine 2020- Yes Place in [facility] (LASTACAFT) 0-23 each eye. ity of 0.25 % Drop 17:03: [place] [address] Medical Branch CYCLOSPORIN 2019- Yes Place in [facility] E (RESTASIS 0-23 each eye. ity of OPHTHALMIC) 17:03: [place] [address] Medical Branch DOCOSAHEXAN 2019- Yes Take by [facility] OIC 0-23 mouth. ity of ACID/EPA 17:03: [place] (FISH OIL 43 Medical ORAL) Branch vitamin E 2019- Yes 1000U Take 1,000 [facility] 1,000 unit 0-23 Units by ity o f capsule 17:03: mouth [place] 43 daily. Medical Branch Magnesium 2019- Yes Take by [facility] ers 250 mg Tab 0-23 mouth. ity of 17:03: [place] [address] Medical Branch vitamin B-6 2019-09 Yes 100mg Take 100 [facility] (VITAMIN 0-23 mg by ity of B-6) 100 mg 17:03: mouth [place] tablet 43 daily. Medical Branch CALCIUM 2019- Yes Take by [facility] CARBONATE/V 0-23 mouth. ity of ITAMIN D3 17:03: [place] (VITAMIN 43 Medical D-3 ORAL) Branch alcaftadine 2019-[address] in [facility] (LASTACAFT) 0-23 each eye. ity of 0.25 % Drop 17:03: [place] [address] Medical Branch CYCLOSPORIN 2019-[address] in [facility] E (RESTASIS 0-23 each eye. ity of OPHTHALMIC) 17:03: [place] [address] Medical Branch DOCOSAHEXAN 2019- Yes Take by [facility] OIC 0-23 mouth. ity of ACID/EPA 17:03: [place] (FISH OIL 43 Medical ORAL) Branch vitamin E 2019- Yes 1000U Take 1,000 [facility] 1,000 unit 0-23 Units by ity o f capsule 17:03: mouth [place] 43 daily. Medical Branch Magnesium 2020- Yes Take by [facility] ers 250 mg Tab 0-23 mouth. ity of 17:03: [place] [address] Medical Branch vitamin B-6 2019- Yes 100mg Take 100 [facility] (VITAMIN 0-23 mg by ity of B-6) 100 mg 17:03: mouth [place] tablet 43 daily. Medical Branch CALCIUM 2020- Yes Take by [facility] CARBONATE/V 0-23 mouth. ity of ITAMIN D3 17:03: [place] (VITAMIN 43 Medical D-3 ORAL) Branch alcaftadine 2020- Yes Place in [facility] (LASTACAFT) 0-23 each eye. ity of 0.25 % Drop 17:03: [place] [address] Medical Branch CYCLOSPORIN 2019- Yes Place in [facility] E (RESTASIS 0-23 each eye. ity of OPHTHALMIC) 17:03: [place] [address] Medical Branch DOCOSAHEXAN 2019- Yes Take by [facility] OIC 0-23 mouth. ity of ACID/EPA 17:03: [place] (FISH OIL 43 Medical ORAL) Branch vitamin E 2019- Yes 1000U Take 1,000 [facility] 1,000 unit 0-23 Units by ity o f capsule 17:03: mouth [place] 43 daily. Medical Branch Magnesium 2019- Yes Take by [facility] 250 mg Tab 0-23 mouth. ity of 17:03: [place] [address] Medical Branch vitamin B-6 2019- Yes 100mg Take 100 [facility] (VITAMIN 0-23 mg by ity of B-6) 100 mg 17:03: mouth [place] tablet 43 daily. Medical Branch CALCIUM 2019- Yes Take by [facility] CARBONATE/V 0-23 mouth. ity of ITAMIN D3 17:03: [place] (VITAMIN 43 Medical D-3 ORAL) Branch alcaftadine 2019-[address] in [facility] (LASTACAFT) 0-23 each eye. ity of 0.25 % Drop 17:03: [place] [address] Medical Branch CYCLOSPORIN 2019- Yes Place in [facility] E (RESTASIS 0-23 each eye. ity of OPHTHALMIC) 17:03: [place] [address] Medical Branch DOCOSAHEXAN 2019- Yes Take by [facility] OIC 0-23 mouth. ity of ACID/EPA 17:03: [place] (FISH OIL 43 Medical ORAL) Branch vitamin E 2019- Yes 1000U Take 1,000 [facility] 1,000 unit 0-23 Units by ity o f capsule 17:03: mouth [place] 43 daily. Medical Branch Magnesium 2020- Yes Take by [facility] 250 mg Tab 0-23 mouth. ity of 17:03: [place] [address] Medical Branch vitamin B-6 2020- Yes 100mg Take 100 [facility] (VITAMIN 0-23 mg by ity of B-6) 100 mg 17:03: mouth [place] tablet 43 daily. Medical Branch CALCIUM 2019- Yes Take by [facility] CARBONATE/V 0-23 mouth. ity of ITAMIN D3 17:03: [place] (VITAMIN 43 Medical D-3 ORAL) Branch alcaftadine 2019- Yes Place in [facility] (LASTACAFT) 0-23 each eye. ity of 0.25 % Drop 17:03: [place] [address] Medical Branch CYCLOSPORIN 2019- Yes Place in [facility] E (RESTASIS 0-23 each eye. ity of OPHTHALMIC) 17:03: [place] [address] Medical Branch DOCOSAHEXAN 2019-09 Yes Take by [facility] OIC 0-23 mouth. ity of ACID/EPA 17:03: [place] (FISH OIL 43 Medical ORAL) Branch vitamin E 2019-09 Yes 1000U Take 1,000 [facility] 1,000 unit 0-23 Units by ity o f capsule 17:03: mouth [place] 43 daily. Medical Branch Magnesium 2019- Yes Take by [facility] 250 mg Tab 0-23 mouth. ity of 17:03: [place] [address] Medical Branch vitamin B-6 2019- Yes 100mg Take 100 [facility] (VITAMIN 0-23 mg by ity of B-6) 100 mg 17:03: mouth [place] tablet 43 daily. Medical Branch CALCIUM 2019- Yes Take by [facility] CARBONATE/V 0-23 mouth. ity of ITAMIN D3 17:03: [place] (VITAMIN 43 Medical D-3 ORAL) Branch alcaftadine 2019-[address] in [facility] (LASTACAFT) 0-23 each eye. ity of 0.25 % Drop 17:03: [place] [address] Medical Branch CYCLOSPORIN 2019- Yes Place in [facility] E (RESTASIS 0-23 each eye. ity of OPHTHALMIC) 17:03: [place] [address] Medical Branch DOCOSAHEXAN 2019- Yes Take by [facility] OIC 0-23 mouth. ity of ACID/EPA 17:03: [place] (FISH OIL 43 Medical ORAL) Branch vitamin E 2019- Yes 1000U Take 1,000 [facility] 1,000 unit 0-23 Units by ity o f capsule 17:03: mouth [place] 43 daily. Medical Branch Magnesium 2020-1 Yes Take by [facility] 250 mg Tab 0-23 mouth. ity of 17:03: [place] [address] Medical Branch vitamin B-6 2019- Yes 100mg Take 100 [facility] (VITAMIN 0-23 mg by ity of B-6) 100 mg 17:03: mouth [place] tablet 43 daily. Medical Branch CALCIUM 2019- Yes Take by [facility] CARBONATE/V 0-23 mouth. ity of ITAMIN D3 17:03: [place] (VITAMIN 43 Medical D-3 ORAL) Branch alcaftadine 2019-[address] in [facility] (LASTACAFT) 0-23 each eye. ity of 0.25 % Drop 17:03: [place] [address] Medical Branch CYCLOSPORIN 2019-[address] in [facility] E (RESTASIS 0-23 each eye. ity of OPHTHALMIC) 17:03: [place] [address] Medical Branch DOCOSAHEXAN 2019-09 Yes Take by [facility] OIC 0-23 mouth. ity of ACID/EPA 17:03: [place] (FISH OIL 43 Medical ORAL) Branch vitamin E 2019-09 Yes 1000U Take 1,000 [facility] 1,000 unit 0-23 Units by ity o f capsule 17:03: mouth [place] 43 daily. Medical Branch Magnesium 2019- Yes Take by [facility] 250 mg Tab 0-23 mouth. ity of 17:03: [place] [address] Medical Branch vitamin B-6 2019-09 Yes 100mg Take 100 [facility] (VITAMIN 0-23 mg by ity of B-6) 100 mg 17:03: mouth [place] tablet 43 daily. Medical Branch CALCIUM 2019-09 Yes Take by [facility] CARBONATE/V 0-23 mouth. ity of ITAMIN D3 17:03: [place] (VITAMIN 43 Medical D-3 ORAL) Branch alcaftadine 2019-[address] in [facility] (LASTACAFT) 0-23 each eye. ity of 0.25 % Drop 17:03: [place] [address] Medical Branch CYCLOSPORIN 2019-[address] in [facility] E (RESTASIS 0-23 each eye. ity of OPHTHALMIC) 17:03: [place] [address] Medical Branch DOCOSAHEXAN 2019-09 Yes Take by [facility] OIC 0-23 mouth. ity of ACID/EPA 17:03: [place] (FISH OIL 43 Medical ORAL) Branch vitamin E 2019-09 Yes 1000U Take 1,000 [facility] 1,000 unit 0-23 Units by ity o f capsule 17:03: mouth [place] 43 daily. Medical Branch Magnesium 2020- Yes Take by [facility] 250 mg Tab 0-23 mouth. ity of 17:03: [place] [address] Medical Branch vitamin B-6 2019-09 Yes 100mg Take 100 [facility] (VITAMIN 0-23 mg by ity of B-6) 100 mg 17:03: mouth [place] tablet 43 daily. Medical Branch CALCIUM 2019- Yes Take by [facility] CARBONATE/V 0-23 mouth. ity of ITAMIN D3 17:03: [place] (VITAMIN 43 Medical D-3 ORAL) Branch alcaftadine 2019-[address] in [facility] (LASTACAFT) 0-23 each eye. ity of 0.25 % Drop 17:03: [place] [address] Medical Branch CYCLOSPORIN 2019-[address] in [facility] E (RESTASIS 0-23 each eye. ity of OPHTHALMIC) 17:03: [place] [address] Medical Branch DOCOSAHEXAN 2019-09 Yes Take by [facility] OIC 0-23 mouth. ity of ACID/EPA 17:03: [place] (FISH OIL 43 Medical ORAL) Branch vitamin E 2019-09 Yes 1000U Take 1,000 [facility] 1,000 unit 0-23 Units by ity o f capsule 17:03: mouth [place] 43 daily. Medical Branch Magnesium 2019- Yes Take by [facility] 250 mg Tab 0-23 mouth. ity of 17:03: [place] [address] Medical Branch vitamin B-6 2019-09 Yes 100mg Take 100 [facility] (VITAMIN 0-23 mg by ity of B-6) 100 mg 17:03: mouth [place] tablet 43 daily. Medical Branch CALCIUM 2019- Yes Take by [facility] CARBONATE/V 0-23 mouth. ity of ITAMIN D3 17:03: [place] (VITAMIN 43 Medical D-3 ORAL) Branch alcaftadine 2019-[address] in [facility] (LASTACAFT) 0-23 each eye. ity of 0.25 % Drop 17:03: [place] [address] Medical Branch CYCLOSPORIN 2019-[address] in [facility] E (RESTASIS 0-23 each eye. ity of OPHTHALMIC) 17:03: [place] [address] Medical Branch DOCOSAHEXAN 2019- Yes Take by [facility] OIC 0-23 mouth. ity of ACID/EPA 17:03: [place] (FISH OIL 43 Medical ORAL) Branch vitamin E 2019- Yes 1000U Take 1,000 [facility] 1,000 unit 0-23 Units by ity o f capsule 17:03: mouth [place] 43 daily. Medical Branch Magnesium 2019- Yes Take by [facility] 250 mg Tab 0-23 mouth. ity of 17:03: [place] [address] Medical Branch vitamin B-6 2019-09 Yes 100mg Take 100 [facility] (VITAMIN 0-23 mg by ity of B-6) 100 mg 17:03: mouth [place] tablet 43 daily. Medical Branch CALCIUM 2019-09 Yes Take by [facility] CARBONATE/V 0-23 mouth. ity of ITAMIN D3 17:03: [place] (VITAMIN 43 Medical D-3 ORAL) Branch alcaftadine 2019-[address] in [facility] (LASTACAFT) 0-23 each eye. ity of 0.25 % Drop 17:03: [place] [address] Medical Branch CYCLOSPORIN 2019-[address] in [facility] E (RESTASIS 0-23 each eye. ity of OPHTHALMIC) 17:03: [place] [address] Medical Branch DOCOSAHEXAN 2019-09 Yes Take by [facility] OIC 0-23 mouth. ity of ACID/EPA 17:03: [place] (FISH OIL 43 Medical ORAL) Branch vitamin E 2019-09 Yes 1000U Take 1,000 [facility] 1,000 unit 0-23 Units by ity o f capsule 17:03: mouth [place] 43 daily. Medical Branch Magnesium 2019- Yes Take by [facility] 250 mg Tab 0-23 mouth. ity of 17:03: [place] [address] Medical Branch vitamin B-6 2019-09 Yes 100mg Take 100 [facility] (VITAMIN 0-23 mg by ity of B-6) 100 mg 17:03: mouth [place] tablet 43 daily. Medical Branch CALCIUM 2019-09 Yes Take by [facility] CARBONATE/V 0-23 mouth. ity of ITAMIN D3 17:03: [place] (VITAMIN 43 Medical D-3 ORAL) Branch alcaftadine 2019-[address] in [facility] (LASTACAFT) 0-23 each eye. ity of 0.25 % Drop 17:03: [place] [address] Medical Branch CYCLOSPORIN 2019-[address] in [facility] E (RESTASIS 0-23 each eye. ity of OPHTHALMIC) 17:03: [place] [address] Medical Branch DOCOSAHEXAN 2019- Yes Take by [facility] OIC 0-23 mouth. ity of ACID/EPA 17:03: [place] (FISH OIL 43 Medical ORAL) Branch vitamin E 2019-09 Yes 1000U Take 1,000 [facility] 1,000 unit 0-23 Units by ity o f capsule 17:03: mouth [place] 43 daily. Medical Branch Magnesium 2019- Yes Take by [facility] 250 mg Tab 0-23 mouth. ity of 17:03: [place] [address] Medical Branch vitamin B-6 2019-09 Yes 100mg Take 100 [facility] (VITAMIN 0-23 mg by ity of B-6) 100 mg 17:03: mouth [place] tablet 43 daily. Medical Branch CALCIUM 2019-09 Yes Take by [facility] CARBONATE/V 0-23 mouth. ity of ITAMIN D3 17:03: [place] (VITAMIN 43 Medical D-3 ORAL) Branch alcaftadine 2019-[address] in [facility] (LASTACAFT) 0-23 each eye. ity of 0.25 % Drop 17:03: [place] [address] Medical Branch CYCLOSPORIN 2019-[address] in [facility] E (RESTASIS 0-23 each eye. ity of OPHTHALMIC) 17:03: [place] [address] Medical Branch DOCOSAHEXAN 2019-09 Yes Take by [facility] OIC 0-23 mouth. ity of ACID/EPA 17:03: [place] (FISH OIL 43 Medical ORAL) Branch vitamin E 2019-09 Yes 1000U Take 1,000 [facility] 1,000 unit 0-23 Units by ity o f capsule 17:03: mouth [place] 43 daily. Medical Branch Magnesium 2019- Yes Take by [facility] 250 mg Tab 0-23 mouth. ity of 17:03: [place] [address] Medical Branch vitamin B-6 2019-09 Yes 100mg Take 100 [facility] (VITAMIN 0-23 mg by ity of B-6) 100 mg 17:03: mouth [place] tablet 43 daily. Medical Branch CALCIUM 2019-09 Yes Take by [facility] CARBONATE/V 0-23 mouth. ity of ITAMIN D3 17:03: [place] (VITAMIN 43 Medical D-3 ORAL) Branch alcaftadine 2019-[address] in [facility] (LASTACAFT) 0-23 each eye. ity of 0.25 % Drop 17:03: [place] [address] Medical Branch CYCLOSPORIN 2019-[address] in [facility] E (RESTASIS 0-23 each eye. ity of OPHTHALMIC) 17:03: [place] [address] Medical Branch DOCOSAHEXAN 2019- Yes Take by [facility] OIC 0-23 mouth. ity of ACID/EPA 17:03: [place] (FISH OIL 43 Medical ORAL) Branch vitamin E 2019- Yes 1000U Take 1,000 [facility] 1,000 unit 0-23 Units by ity o f capsule 17:03: mouth [place] 43 daily. Medical Branch Magnesium 2019- Yes Take by [facility] 250 mg Tab 0-23 mouth. ity of 17:03: [place] [address] Medical Branch vitamin B-6 2019- Yes 100mg Take 100 [facility] (VITAMIN 0-23 mg by ity of B-6) 100 mg 17:03: mouth [place] tablet 43 daily. Medical Branch CALCIUM 2019- Yes Take by [facility] CARBONATE/V 0-23 mouth. ity of ITAMIN D3 17:03: [place] (VITAMIN 43 Medical D-3 ORAL) Branch alcaftadine 2019-[address] in [facility] (LASTACAFT) 0-23 each eye. ity of 0.25 % Drop 17:03: [place] [address] [facility] CYCLOSPORIN 2019-[address] in [facility] (RESTASIS 0-23 each eye. ity of OPHTHALMIC) 17:03: [place] [address] [facility] DOCOSAHEXAN 2019-09 Yes Take by [facility] 0-23 mouth. ity of ACID/EPA 17:03: [place] (FISH OIL 43 Medical ORAL) Branch vitamin E 2019-09 Yes 1000U Take 1,000 [facility] 1,000 unit 0-23 Units by ity o f capsule 17:03: mouth [place] 43 daily. [facility] Magnesium 2019- Yes Take by [facility] 250 mg Tab 0-23 mouth. ity of 17:03: [place] [address] [facility] vitamin B-6 2019-09 Yes 100mg Take 100 [facility] (VITAMIN 0-23 mg by ity of B-6) 100 mg 17:03: mouth [place] tablet 43 daily. [facility] CALCIUM 2019- Yes Take by [facility] CARBONATE/V 0-23 mouth. ity of ITAMIN D3 17:03: [place] (VITAMIN 43 Medical D-3 ORAL) Branch alcaftadine 2019-[address] in [facility] (LASTACAFT) 0-23 each eye. ity of 0.25 % Drop 17:03: [place] [address] [facility] CYCLOSPORIN 2020- Yes Place in [facility] (RESTASIS 0-23 each eye. ity of OPHTHALMIC) 17:03: [place] [address] [facility] DOCOSAHEXAN 2019- Yes Take by [facility] 0-23 mouth. ity of ACID/EPA 17:03: [place] (FISH OIL 43 Medical ORAL) Branch vitamin E 2019- Yes 1000U Take 1,000 [facility] 1,000 unit 0-23 Units by ity o f capsule 17:03: mouth [place] 43 daily. [facility] Magnesium 2019- Yes Take by [facility] 250 mg Tab 0-23 mouth. ity of 17:03: [place] [address] [facility] vitamin B-6 2019- Yes 100mg Take 100 [facility] (VITAMIN 0-23 mg by ity of B-6) 100 mg 17:03: mouth [place] tablet 43 daily. [facility] CALCIUM 2019- Yes Take by [facility] CARBONATE/V 0-23 mouth. ity of ITAMIN D3 17:03: [place] (VITAMIN 43 Medical D-3 ORAL) Branch alcaftadine 2019-[address] in [facility] (LASTACAFT) 0-23 each eye. ity of 0.25 % Drop 17:03: [place] [address] [facility] CYCLOSPORIN 2019- Yes Place in [facility] (RESTASIS 0-23 each eye. ity of OPHTHALMIC) 17:03: [place] [address] [facility] DOCOSAHEXAN 2019- Yes Take by [facility] 0-23 mouth. ity of ACID/EPA 17:03: [place] (FISH OIL 43 Medical ORAL) Branch vitamin E 2019- Yes 1000U Take 1,000 [facility] 1,000 unit 0-23 Units by ity o f capsule 17:03: mouth [place] 43 daily. [facility] Magnesium 2019- Yes Take by [facility] 250 mg Tab 0-23 mouth. ity of 17:03: [place] [address] [facility] vitamin B-6 2019- Yes 100mg Take 100 [facility] (VITAMIN 0-23 mg by ity of B-6) 100 mg 17:03: mouth [place] tablet 43 daily. [facility] CALCIUM 2019- Yes Take by [facility] CARBONATE/V 0-23 mouth. ity of ITAMIN D3 17:03: [place] (VITAMIN 43 Medical D-3 ORAL) Branch alcaftadine 2019- Yes Place in [facility] (LASTACAFT) 0-23 each eye. ity of 0.25 % Drop 17:03: [place] [address] [facility] CYCLOSPORIN 2020- Yes Place in [facility] (RESTASIS 0-23 each eye. ity of OPHTHALMIC) 17:03: [place] [address] [facility] DOCOSAHEXAN 2019-09 Yes Take by [facility] 0-23 mouth. ity of ACID/EPA 17:03: [place] (FISH OIL 43 Medical ORAL) Branch vitamin E 2019-09 Yes 1000U Take 1,000 [facility] 1,000 unit 0-23 Units by ity o f capsule 17:03: mouth [place] 43 daily. [facility] Magnesium 2019- Yes Take by [facility] 250 mg Tab 0-23 mouth. ity of 17:03: [place] [address] [facility] vitamin B-6 2019-09 Yes 100mg Take 100 [facility] (VITAMIN 0-23 mg by ity of B-6) 100 mg 17:03: mouth [place] tablet 43 daily. [facility] CALCIUM 2019-09 Yes Take by [facility] CARBONATE/V 0-23 mouth. ity of ITAMIN D3 17:03: [place] (VITAMIN 43 Medical D-3 ORAL) Branch alcaftadine 2019-[address] in [facility] (LASTACAFT) 0-23 each eye. ity of 0.25 % Drop 17:03: [place] [address] [facility] CYCLOSPORIN 2019-[address] in [facility] (RESTASIS 0-23 each eye. ity of OPHTHALMIC) 17:03: [place] [address] [facility] DOCOSAHEXAN 2019-09 Yes Take by [facility] 0-23 mouth. ity of ACID/EPA 17:03: [place] (FISH OIL 43 Medical ORAL) Branch vitamin E 2019- Yes 1000U Take 1,000 [facility] 1,000 unit 0-23 Units by ity o f capsule 17:03: mouth [place] 43 daily. [facility] Magnesium 2019- Yes Take by [facility] 250 mg Tab 0-23 mouth. ity of 17:03: [place] [address] [facility] vitamin B-6 2019-09 Yes 100mg Take 100 [facility] (VITAMIN 0-23 mg by ity of B-6) 100 mg 17:03: mouth [place] tablet 43 daily. [facility] CALCIUM 2019- Yes Take by [facility] CARBONATE/V 0-23 mouth. ity of ITAMIN D3 17:03: [place] (VITAMIN 43 Medical D-3 ORAL) Branch alcaftadine 2020- Yes Place in [facility] (LASTACAFT) 0-23 each eye. ity of 0.25 % Drop 17:03: [place] [address] [facility] CYCLOSPORIN 2020- Yes Place in [facility] (RESTASIS 0-23 each eye. ity of OPHTHALMIC) 17:03: [place] [address] [facility] DOCOSAHEXAN 2019- Yes Take by [facility] 0-23 mouth. ity of ACID/EPA 17:03: [place] (FISH OIL 43 Medical ORAL) Branch vitamin E 2019- Yes 1000U Take 1,000 [facility] 1,000 unit 0-23 Units by ity o f capsule 17:03: mouth [place] 43 daily. [facility] Magnesium 2019- Yes Take by [facility] 250 mg Tab 0-23 mouth. ity of 17:03: [place] [address] [facility] vitamin B-6 2019-09 Yes 100mg Take 100 [facility] (VITAMIN 0-23 mg by ity of B-6) 100 mg 17:03: mouth [place] tablet 43 daily. [facility] CALCIUM 2019- Yes Take by [facility] CARBONATE/V 0-23 mouth. ity of ITAMIN D3 17:03: [place] (VITAMIN 43 Medical D-3 ORAL) Branch alcaftadine 2019-[address] in [facility] (LASTACAFT) 0-23 each eye. ity of 0.25 % Drop 17:03: [place] [address] [facility] CYCLOSPORIN 2019-[address] in [facility] (RESTASIS 0-23 each eye. ity of OPHTHALMIC) 17:03: [place] [address] [facility] DOCOSAHEXAN 2019- Yes Take by [facility] 0-23 mouth. ity of ACID/EPA 17:03: [place] (FISH OIL 43 Medical ORAL) Branch vitamin E 2019- Yes 1000U Take 1,000 [facility] 1,000 unit 0-23 Units by ity o f capsule 17:03: mouth [place] 43 daily. [facility] Magnesium 2020- Yes Take by [facility] 250 mg Tab 0-23 mouth. ity of 17:03: [place] [address] [facility] vitamin B-6 2019- Yes 100mg Take 100 [facility] (VITAMIN 0-23 mg by ity of B-6) 100 mg 17:03: mouth [place] tablet 43 daily. [facility] CALCIUM 2020- Yes Take by [facility] CARBONATE/V 0-23 mouth. ity of ITAMIN D3 17:03: [place] (VITAMIN 43 Medical D-3 ORAL) Branch alcaftadine 2020- Yes Place in [facility] (LASTACAFT) 0-23 each eye. ity of 0.25 % Drop 17:03: [place] [address] [facility] CYCLOSPORIN 2019- Yes Place in [facility] (RESTASIS 0-23 each eye. ity of OPHTHALMIC) 17:03: [place] [address] [facility] DOCOSAHEXAN 2019-09 Yes Take by [facility] 0-23 mouth. ity of ACID/EPA 17:03: [place] (FISH OIL 43 Medical ORAL) Branch vitamin E 2019-09 Yes 1000U Take 1,000 [facility] 1,000 unit 0-23 Units by ity o f capsule 17:03: mouth [place] 43 daily. [facility] Magnesium 2019- Yes Take by [facility] 250 mg Tab 0-23 mouth. ity of 17:03: [place] [address] [facility] vitamin B-6 2019-09 Yes 100mg Take 100 [facility] (VITAMIN 0-23 mg by ity of B-6) 100 mg 17:03: mouth [place] tablet 43 daily. [facility] CALCIUM 2019- Yes Take by [facility] CARBONATE/V 0-23 mouth. ity of ITAMIN D3 17:03: [place] (VITAMIN 43 Medical D-3 ORAL) Branch alcaftadine 2019-[address] in [facility] (LASTACAFT) 0-23 each eye. ity of 0.25 % Drop 17:03: [place] [address] [facility] CYCLOSPORIN 2019-[address] in [facility] (RESTASIS 0-23 each eye. ity of OPHTHALMIC) 17:03: [place] [address] [facility] DOCOSAHEXAN 2019- Yes Take by [facility] 0-23 mouth. ity of ACID/EPA 17:03: [place] (FISH OIL 43 Medical ORAL) Branch vitamin E 2019- Yes 1000U Take 1,000 [facility] 1,000 unit 0-23 Units by ity o f capsule 17:03: mouth [place] 43 daily. [facility] Magnesium 2020- Yes Take by [facility] 250 mg Tab 0-23 mouth. ity of 17:03: [place] [address] [facility] vitamin B-6 2019- Yes 100mg Take 100 [facility] (VITAMIN 0-23 mg by ity of B-6) 100 mg 17:03: mouth [place] tablet 43 daily. [facility] CALCIUM 2020- Yes Take by [facility] CARBONATE/V 0-23 mouth. ity of ITAMIN D3 17:03: [place] (VITAMIN 43 Medical D-3 ORAL) Branch alcaftadine 2020- Yes Place in [facility] (LASTACAFT) 0-23 each eye. ity of 0.25 % Drop 17:03: [place] [address] [facility] CYCLOSPORIN 2019- Yes Place in [facility] (RESTASIS 0-23 each eye. ity of OPHTHALMIC) 17:03: [place] [address] [facility] DOCOSAHEXAN 2019- Yes Take by [facility] 0-23 mouth. ity of ACID/EPA 17:03: [place] (FISH OIL 43 Medical ORAL) Branch vitamin E 2019- Yes 1000U Take 1,000 [facility] 1,000 unit 0-23 Units by ity o f capsule 17:03: mouth [place] 43 daily. [facility] Magnesium 2019- Yes Take by [facility] 250 mg Tab 0-23 mouth. ity of 17:03: [place] [address] [facility] vitamin B-6 2019- Yes 100mg Take 100 [facility] (VITAMIN 0-23 mg by ity of B-6) 100 mg 17:03: mouth [place] tablet 43 daily. [facility] CALCIUM 2019- Yes Take by [facility] CARBONATE/V 0-23 mouth. ity of ITAMIN D3 17:03: [place] (VITAMIN 43 Medical D-3 ORAL) Branch alcaftadine 2019-[address] in [facility] (LASTACAFT) 0-23 each eye. ity of 0.25 % Drop 17:03: [place] [address] [facility] CYCLOSPORIN 2019- Yes Place in [facility] (RESTASIS 0-23 each eye. ity of OPHTHALMIC) 17:03: [place] [address] [facility] DOCOSAHEXAN 2019- Yes Take by [facility] 0-23 mouth. ity of ACID/EPA 17:03: [place] (FISH OIL 43 Medical ORAL) Branch vitamin E 2019- Yes 1000U Take 1,000 [facility] 1,000 unit 0-23 Units by ity o f capsule 17:03: mouth [place] 43 daily. [facility] Magnesium 2020- Yes Take by [facility] 250 mg Tab 0-23 mouth. ity of 17:03: [place] [address] [facility] vitamin B-6 2019- Yes 100mg Take 100 [facility] (VITAMIN 0-23 mg by ity of B-6) 100 mg 17:03: mouth [place] tablet 43 daily. [facility] CALCIUM 2019- Yes Take by [facility] CARBONATE/V 0-23 mouth. ity of ITAMIN D3 17:03: [place] (VITAMIN 43 Medical D-3 ORAL) Branch alcaftadine 2019-[address] in [facility] (LASTACAFT) 0-23 each eye. ity of 0.25 % Drop 17:03: [place] [address] [facility] CYCLOSPORIN 2019- Yes Place in [facility] (RESTASIS 0-23 each eye. ity of OPHTHALMIC) 17:03: [place] [address] [facility] DOCOSAHEXAN 2019-09 Yes Take by [facility] 0-23 mouth. ity of ACID/EPA 17:03: [place] (FISH OIL 43 Medical ORAL) Branch vitamin E 2019-09 Yes 1000U Take 1,000 [facility] 1,000 unit 0-23 Units by ity o f capsule 17:03: mouth [place] 43 daily. [facility] Magnesium 2019- Yes Take by [facility] 250 mg Tab 0-23 mouth. ity of 17:03: [place] [address] [facility] vitamin B-6 2019-09 Yes 100mg Take 100 [facility] (VITAMIN 0-23 mg by ity of B-6) 100 mg 17:03: mouth [place] tablet 43 daily. [facility] CALCIUM 2019- Yes Take by [facility] CARBONATE/V 0-23 mouth. ity of ITAMIN D3 17:03: [place] (VITAMIN 43 Medical D-3 ORAL) Branch alcaftadine 2019-[address] in [facility] (LASTACAFT) 0-23 each eye. ity of 0.25 % Drop 17:03: [place] [address] [facility] CYCLOSPORIN 2019- Yes Place in [facility] (RESTASIS 0-23 each eye. ity of OPHTHALMIC) 17:03: [place] [address] [facility] DOCOSAHEXAN 2019- Yes Take by [facility] 0-23 mouth. ity of ACID/EPA 17:03: [place] (FISH OIL 43 Medical ORAL) Branch vitamin E 2019- Yes 1000U Take 1,000 [facility] 1,000 unit 0-23 Units by ity o f capsule 17:03: mouth [place] 43 daily. [facility] Magnesium 2020- Yes Take by [facility] 250 mg Tab 0-23 mouth. ity of 17:03: [place] [address] [facility] vitamin B-6 2019-09 Yes 100mg Take 100 [facility] (VITAMIN 0-23 mg by ity of B-6) 100 mg 17:03: mouth [place] tablet 43 daily. [facility] CALCIUM 2019-09 Yes Take by [facility] CARBONATE/V 0-23 mouth. ity of ITAMIN D3 17:03: [place] (VITAMIN 43 Medical D-3 ORAL) Branch alcaftadine 2019-[address] in [facility] (LASTACAFT) 0-23 each eye. ity of 0.25 % Drop 17:03: [place] [address] [facility] CYCLOSPORIN 2019-[address] in [facility] (RESTASIS 0-23 each eye. ity of OPHTHALMIC) 17:03: [place] [address] [facility] DOCOSAHEXAN 2019-09 Yes Take by [facility] 0-23 mouth. ity of ACID/EPA 17:03: [place] (FISH OIL 43 Medical ORAL) Branch vitamin E 2019-09 Yes 1000U Take 1,000 [facility] 1,000 unit 0-23 Units by ity o f capsule 17:03: mouth [place] 43 daily. [facility] Magnesium 2019-09 Yes Take by [facility] 250 mg Tab 0-23 mouth. ity of 17:03: [place] [address] [facility] vitamin B-6 2019-09 Yes 100mg Take 100 [facility] (VITAMIN 0-23 mg by ity of B-6) 100 mg 17:03: mouth [place] tablet 43 daily. [facility] CALCIUM 2019-09 Yes Take by [facility] CARBONATE/V 0-23 mouth. ity of ITAMIN D3 17:03: [place] (VITAMIN 43 Medical D-3 ORAL) Branch alcaftadine 2019-[address] in [facility] (LASTACAFT) 0-23 each eye. ity of 0.25 % Drop 17:03: [place] [address] [facility] CYCLOSPORIN 2019-[address] in [facility] E (RESTASIS 0-23 each eye. ity of OPHTHALMIC) 17:03: [place] [address] [facility] DOCOSAHEXAN 2019-09 Yes Take by [facility] 0-23 mouth. ity of ACID/EPA 17:03: [place] (FISH OIL 43 Medical ORAL) Branch vitamin E 2019- Yes 1000U Take 1,000 [facility] 1,000 unit 0-23 Units by ity o f capsule 17:03: mouth [place] 43 daily. [facility] Magnesium 2020- Yes Take by [facility] 250 mg Tab 0-23 mouth. ity of 17:03: [place] [address] [facility] vitamin B-6 2019- Yes 100mg Take 100 [facility] (VITAMIN 0-23 mg by ity of B-6) 100 mg 17:03: mouth [place] tablet 43 daily. [facility] CALCIUM 2019- Yes Take by [facility] CARBONATE/V 0-23 mouth. ity of ITAMIN D3 17:03: [place] (VITAMIN 43 Medical D-3 ORAL) Branch alcaftadine 2019-[address] in [facility] (LASTACAFT) 0-23 each eye. ity of 0.25 % Drop 17:03: [place] [address] [facility] CYCLOSPORIN 2019-[address] in [facility] (RESTASIS 0-23 each eye. ity of OPHTHALMIC) 17:03: [place] [address] [facility] DOCOSAHEXAN 2019-09 Yes Take by [facility] 0-23 mouth. ity of ACID/EPA 17:03: [place] (FISH OIL 43 Medical ORAL) Branch vitamin E 2019-09 Yes 1000U Take 1,000 [facility] 1,000 unit 0-23 Units by ity o f capsule 17:03: mouth [place] 43 daily. [facility] Magnesium 2019- Yes Take by [facility] 250 mg Tab 0-23 mouth. ity of 17:03: [place] [address] [facility] vitamin B-6 2019-09 Yes 100mg Take 100 [facility] (VITAMIN 0-23 mg by ity of B-6) 100 mg 17:03: mouth [place] tablet 43 daily. [facility] CALCIUM 2019- Yes Take by [facility] CARBONATE/V 0-23 mouth. ity of ITAMIN D3 17:03: [place] (VITAMIN 43 Medical D-3 ORAL) Branch alcaftadine 2019-[address] in [facility] (LASTACAFT) 0-23 each eye. ity of 0.25 % Drop 17:03: [place] [address] [facility] CYCLOSPORIN 2019- Yes Place in [facility] E (RESTASIS 0-23 each eye. ity of OPHTHALMIC) 17:03: [place] [address] [facility] DOCOSAHEXAN 2019- Yes Take by [facility] 0-23 mouth. ity of ACID/EPA 17:03: [place] (FISH OIL 43 Medical ORAL) Branch vitamin E 2019- Yes 1000U Take 1,000 [facility] 1,000 unit 0-23 Units by ity o f capsule 17:03: mouth [place] 43 daily. [facility] Magnesium 2019- Yes Take by [facility] 250 mg Tab 0-23 mouth. ity of 17:03: [place] [address] [facility] vitamin B-6 2019-09 Yes 100mg Take 100 [facility] (VITAMIN 0-23 mg by ity of B-6) 100 mg 17:03: mouth [place] tablet 43 daily. [facility] CALCIUM 2019-09 Yes Take by [facility] CARBONATE/V 0-23 mouth. ity of ITAMIN D3 17:03: [place] (VITAMIN 43 Medical D-3 ORAL) Branch alcaftadine 2019-[address] in [facility] (LASTACAFT) 0-23 each eye. ity of 0.25 % Drop 17:03: [place] [address] [facility] CYCLOSPORIN 2019-[address] in [facility] E (RESTASIS 0-23 each eye. ity of OPHTHALMIC) 17:03: [place] [address] [facility] DOCOSAHEXAN 2019-09 Yes Take by [facility] 0-23 mouth. ity of ACID/EPA 17:03: [place] (FISH OIL 43 Medical ORAL) Branch vitamin E 2019-09 Yes 1000U Take 1,000 [facility] 1,000 unit 0-23 Units by ity o f capsule 17:03: mouth [place] 43 daily. [facility] Magnesium 2019- Yes Take by [facility] 250 mg Tab 0-23 mouth. ity of 17:03: [place] [address] [facility] vitamin B-6 2019-09 Yes 100mg Take 100 [facility] (VITAMIN 0-23 mg by ity of B-6) 100 mg 17:03: mouth [place] tablet 43 daily. [facility] CALCIUM 2019-09 Yes Take by [facility] CARBONATE/V 0-23 mouth. ity of ITAMIN D3 17:03: [place] (VITAMIN 43 Medical D-3 ORAL) Branch alcaftadine 2019-[address] in [facility] (LASTACAFT) 0-23 each eye. ity of 0.25 % Drop 17:03: [place] [address] [facility] CYCLOSPORIN 2019-[address] in [facility] (RESTASIS 0-23 each eye. ity of OPHTHALMIC) 17:03: [place] [address] [facility] DOCOSAHEXAN 2019-09 Yes Take by [facility] 0-23 mouth. ity of ACID/EPA 17:03: [place] (FISH OIL 43 Medical ORAL) Branch vitamin E 2019-09 Yes 1000U Take 1,000 [facility] 1,000 unit 0-23 Units by ity o f capsule 17:03: mouth [place] 43 daily. [facility] Magnesium 2019- Yes Take by [facility] 250 mg Tab 0-23 mouth. ity of 17:03: [place] [address] [facility] vitamin B-6 2019-09 Yes 100mg Take 100 [facility] (VITAMIN 0-23 mg by ity of B-6) 100 mg 17:03: mouth [place] tablet 43 daily. [facility] CALCIUM 2019-09 Yes Take by [facility] CARBONATE/V 0-23 mouth. ity of ITAMIN D3 17:03: [place] (VITAMIN 43 Medical D-3 ORAL) Branch alcaftadine 2019-[address] in [facility] (LASTACAFT) 0-23 each eye. ity of 0.25 % Drop 17:03: [place] [address] [facility] CYCLOSPORIN 2019-[address] in [facility] E (RESTASIS 0-23 each eye. ity of OPHTHALMIC) 17:03: [place] [address] [facility] DOCOSAHEXAN 2019-09 Yes Take by [facility] 0-23 mouth. ity of ACID/EPA 17:03: [place] (FISH OIL 43 Medical ORAL) Branch vitamin E 2019-09 Yes 1000U Take 1,000 [facility] 1,000 unit 0-23 Units by ity o f capsule 17:03: mouth [place] 43 daily. [facility] Magnesium 2019- Yes Take by [facility] 250 mg Tab 0-23 mouth. ity of 17:03: [place] [address] [facility] vitamin B-6 2019-09 Yes 100mg Take 100 [facility] (VITAMIN 0-23 mg by ity of B-6) 100 mg 17:03: mouth [place] tablet 43 daily. [facility] CALCIUM 2019-09 Yes Take by [facility] CARBONATE/V 0-23 mouth. ity of ITAMIN D3 17:03: [place] (VITAMIN 43 Medical D-3 ORAL) Branch alcaftadine 2019-[address] in [facility] (LASTACAFT) 0-23 each eye. ity of 0.25 % Drop 17:03: [place] [address] [facility] CYCLOSPORIN 2019-[address] in [facility] E (RESTASIS 0-23 each eye. ity of OPHTHALMIC) 17:03: [place] [address] [facility] DOCOSAHEXAN 2020- Yes Take by [facility] 0-23 mouth. ity of ACID/EPA 17:03: [place] (FISH OIL 43 Medical ORAL) Branch vitamin E 2020- Yes 1000U Take 1,000 [facility] 1,000 unit 0-23 Units by ity o f capsule 17:03: mouth [place] 43 daily. [facility] Magnesium 2020- Yes Take by [facility] 250 mg Tab 0-23 mouth. ity of 17:03: [place] [address] [facility] vitamin B-6 2019- Yes 100mg Take 100 [facility] (VITAMIN 0-23 mg by ity of B-6) 100 mg 17:03: mouth [place] tablet 43 daily. [facility] CALCIUM 2019- Yes Take by [facility] CARBONATE/V 0-23 mouth. ity of ITAMIN D3 17:03: [place] (VITAMIN 43 Medical D-3 ORAL) Branch alcaftadine 2019-[address] in [facility] (LASTACAFT) 0-23 each eye. ity of 0.25 % Drop 17:03: [place] [address] [facility] CYCLOSPORIN 2019- Yes Place in [facility] E (RESTASIS 0-23 each eye. ity of OPHTHALMIC) 17:03: [place] [address] [facility] DOCOSAHEXAN 2019- Yes Take by [facility] 0-23 mouth. ity of ACID/EPA 17:03: [place] (FISH OIL 43 Medical ORAL) Branch vitamin E 2019- Yes 1000U Take 1,000 [facility] 1,000 unit 0-23 Units by ity o f capsule 17:03: mouth [place] 43 daily. [facility] Magnesium 2020- Yes Take by [facility] 250 mg Tab 0-23 mouth. ity of 17:03: [place] [address] [facility] vitamin B-6 2019- Yes 100mg Take 100 [facility] (VITAMIN 0-23 mg by ity of B-6) 100 mg 17:03: mouth [place] tablet 43 daily. [facility] CALCIUM 2020- Yes Take by [facility] CARBONATE/V 0-23 mouth. ity of ITAMIN D3 17:03: [place] (VITAMIN 43 Medical D-3 ORAL) Branch alcaftadine 2019- Yes Place in [facility] (LASTACAFT) 0-23 each eye. ity of 0.25 % Drop 17:03: [place] [address] [facility] CYCLOSPORIN 2019- Yes Place in [facility] E (RESTASIS 0-23 each eye. ity of OPHTHALMIC) 17:03: [place] [address] [facility] DOCOSAHEXAN 2019- Yes Take by [facility] 0-23 mouth. ity of ACID/EPA 17:03: [place] (FISH OIL 43 Medical ORAL) Branch vitamin E 2019- Yes 1000U Take 1,000 [facility] 1,000 unit 0-23 Units by ity o f capsule 17:03: mouth [place] 43 daily. [facility] Magnesium 2019- Yes Take by [facility] 250 mg Tab 0-23 mouth. ity of 17:03: [place] [address] [facility] vitamin B-6 2019-09 Yes 100mg Take 100 [facility] (VITAMIN 0-23 mg by ity of B-6) 100 mg 17:03: mouth [place] tablet 43 daily. [facility] CALCIUM 2019- Yes Take by [facility] CARBONATE/V 0-23 mouth. ity of ITAMIN D3 17:03: [place] (VITAMIN 43 Medical D-3 ORAL) Branch alcaftadine 2019-[address] in [facility] (LASTACAFT) 0-23 each eye. ity of 0.25 % Drop 17:03: [place] [address] [facility] CYCLOSPORIN 2019-[address] in [facility] E (RESTASIS 0-23 each eye. ity of OPHTHALMIC) 17:03: [place] [address] [facility] DOCOSAHEXAN 2019-09 Yes Take by [facility] 0-23 mouth. ity of ACID/EPA 17:03: [place] (FISH OIL 43 Medical ORAL) Branch vitamin E 2019-09 Yes 1000U Take 1,000 [facility] 1,000 unit 0-23 Units by ity o f capsule 17:03: mouth [place] 43 daily. [facility] Magnesium 2019- Yes Take by [facility] 250 mg Tab 0-23 mouth. ity of 17:03: [place] [address] [facility] vitamin B-6 2019- Yes 100mg Take 100 [facility] (VITAMIN 0-23 mg by ity of B-6) 100 mg 17:03: mouth [place] tablet 43 daily. [facility] CALCIUM 2019- Yes Take by [facility] CARBONATE/V 0-23 mouth. ity of ITAMIN D3 17:03: [place] (VITAMIN 43 Medical D-3 ORAL) Branch alcaftadine 2019-[address] in [facility] (LASTACAFT) 0-23 each eye. ity of 0.25 % Drop 17:03: [place] [address] [facility] CYCLOSPORIN 2020- Yes Place in [facility] E (RESTASIS 0-23 each eye. ity of OPHTHALMIC) 17:03: [place] [address] [facility] DOCOSAHEXAN 2019-09 Yes Take by [facility] 0-23 mouth. ity of ACID/EPA 17:03: [place] (FISH OIL 43 Medical ORAL) Branch vitamin E 2019- Yes 1000U Take 1,000 [facility] 1,000 unit 0-23 Units by ity o f capsule 17:03: mouth [place] 43 daily. [facility] Magnesium 2019- Yes Take by [facility] 250 mg Tab 0-23 mouth. ity of 17:03: [place] [address] [facility] vitamin B-6 2019-09 Yes 100mg Take 100 [facility] (VITAMIN 0-23 mg by ity of B-6) 100 mg 17:03: mouth [place] tablet 43 daily. [facility] CALCIUM 2019-09 Yes Take by [facility] CARBONATE/V 0-23 mouth. ity of ITAMIN D3 17:03: [place] (VITAMIN 43 Medical D-3 ORAL) Branch alcaftadine 2019-[address] in [facility] (LASTACAFT) 0-23 each eye. ity of 0.25 % Drop 17:03: [place] [address] [facility] CYCLOSPORIN 2019-[address] in [facility] E (RESTASIS 0-23 each eye. ity of OPHTHALMIC) 17:03: [place] [address] [facility] DOCOSAHEXAN 2019-09 Yes Take by [facility] 0-23 mouth. ity of ACID/EPA 17:03: [place] (FISH OIL 43 Medical ORAL) Branch vitamin E 2019- Yes 1000U Take 1,000 [facility] 1,000 unit 0-23 Units by ity o f capsule 17:03: mouth [place] 43 daily. [facility] Magnesium 2019- Yes Take by [facility] 250 mg Tab 0-23 mouth. ity of 17:03: [place] [address] [facility] vitamin B-6 2019-09 Yes 100mg Take 100 [facility] (VITAMIN 0-23 mg by ity of B-6) 100 mg 17:03: mouth [place] tablet 43 daily. [facility] CALCIUM 2019- Yes Take by [facility] CARBONATE/V 0-23 mouth. ity of ITAMIN D3 17:03: [place] (VITAMIN 43 Medical D-3 ORAL) Branch alcaftadine 2020- Yes Place in [facility] (LASTACAFT) 0-23 each eye. ity of 0.25 % Drop 17:03: [place] [address] [facility] CYCLOSPORIN 2020- Yes Place in [facility] E (RESTASIS 0-23 each eye. ity of OPHTHALMIC) 17:03: [place] [address] [facility] DOCOSAHEXAN 2019- Yes Take by [facility] 0-23 mouth. ity of ACID/EPA 17:03: [place] (FISH OIL 43 Medical ORAL) Branch vitamin E 2019- Yes 1000U Take 1,000 [facility] 1,000 unit 0-23 Units by ity o f capsule 17:03: mouth [place] 43 daily. [facility] Magnesium 2019- Yes Take by [facility] 250 mg Tab 0-23 mouth. ity of 17:03: [place] [address] [facility] vitamin B-6 2019- Yes 100mg Take 100 [facility] (VITAMIN 0-23 mg by ity of B-6) 100 mg 17:03: mouth [place] tablet 43 daily. [facility] Branch CALCIUM 2019- Yes Take by Univer s CARBONATE/V 0-23 mouth. ity of ITAMIN D3 17:03: [place] (VITAMIN 43 Medical D-3 ORAL) Branch alcaftadine 2019-[address] in [facility]ivers (LASTACAFT) 0-23 each eye. ity of 0.25 % Drop 17:03: [place] [address] Medical Branch CYCLOSPORIN 2019-[address] in [facility] E (RESTASIS 0-23 each eye. ity of OPHTHALMIC) 17:03: [place] [address] Medical Branch DOCOSAHEXAN 2019- Yes Take by [facility] OIC 0-23 mouth. ity of ACID/EPA 17:03: [place] (FISH OIL 43 Medical ORAL) Branch vitamin E 2019- Yes 1000U Take 1,000 U nivers 1,000 unit 0-23 Units by ity o f capsule 17:03: mouth [place] 43 daily. Medical Branch Magnesium 2020- Yes Take by Univ ers 250 mg Tab 0-23 mouth. ity of 17:03: [place] [address] [facility] Branch vitamin B-6 2019- Yes 100mg Take 100 [facility]ivers (VITAMIN 0-23 mg by ity of B-6) 100 mg 17:03: mouth [place] tablet 43 daily. Medical Branch CALCIUM 2020- Yes Take by Univer s CARBONATE/V 0-23 mouth. ity of ITAMIN D3 17:03: [place] (VITAMIN 43 Medical D-3 ORAL) Branch alcaftadine [address] in [facility] (LASTACAFT) 0-23 each eye. ity of 0.25 % Drop 17:03: [place] [address] [facility] Branch CYCLOSPORIN 2019- Yes Place in [facility] E (RESTASIS 0-23 each eye. ity of OPHTHALMIC) 17:03: [place] [address] Medical Branch DOCOSAHEXAN 2019-09 Yes Take by [facility] [place] OIC 0-23 mouth. ity of ACID/EPA 17:03: [place] (FISH OIL 43 Medical ORAL) Branch vitamin E 2019-09 Yes 1000U Take 1,000 [facility]ivers 1,000 unit 0-23 Units by ity o f capsule 17:03: mouth [place] 43 daily. Medical Branch Magnesium 2019- Yes Take by Univ ers 250 mg Tab 0-23 mouth. ity of 17:03: [place] [address] Medical Branch vitamin B-6 2019-09 Yes 100mg Take 100 [facility]ivers (VITAMIN 0-23 mg by ity of B-6) 100 mg 17:03: mouth [place] tablet 43 daily. Medical Branch CALCIUM 2019- Yes Take by Univer s CARBONATE/V 0-23 mouth. ity of ITAMIN D3 17:03: [place] (VITAMIN 43 Medical D-3 ORAL) Branch alcaftadine 2019-[address] in [facility]ivers (LASTACAFT) 0-23 each eye. ity of 0.25 % Drop 17:03: [place] [address] [facility] Branch CYCLOSPORIN 2019-[address] in [facility] E (RESTASIS 0-23 each eye. ity of OPHTHALMIC) 17:03: [place] [address] [facility] Branch DOCOSAHEXAN 2019- Yes Take by [facility] [place] OIC 0-23 mouth. ity of ACID/EPA 17:03: [place] (FISH OIL 43 Medical ORAL) Branch vitamin E 2019- Yes 1000U Take 1,000 [facility] nivers 1,000 unit 0-23 Units by ity o f capsule 17:03: mouth [place] 43 daily. Medical Branch Magnesium 2020- Yes Take by Univ ers 250 mg Tab 0-23 mouth. ity of 17:03: [place] [address] Medical Branch vitamin B-6 2019- Yes 100mg Take 100 [facility] (VITAMIN 0-23 mg by ity of B-6) 100 mg 17:03: mouth [place] tablet 43 daily. Medical Branch CALCIUM 2020- Yes Take by Univer s CARBONATE/V 0-23 mouth. ity of ITAMIN D3 17:03: [place] (VITAMIN 43 Medical D-3 ORAL) Branch alcaftadine 2020- Yes Place in [facility] (LASTACAFT) 0-23 each eye. ity of 0.25 % Drop 17:03: [place] [address] [facility] Branch CYCLOSPORIN 2019- Yes Place in [facility] E (RESTASIS 0-23 each eye. ity of OPHTHALMIC) 17:03: [place] [address] [facility] Branch DOCOSAHEXAN 2019- Yes Take by [facility] [place] OIC 0-23 mouth. ity of ACID/EPA 17:03: [place] (FISH OIL 43 Medical ORAL) Branch vitamin E 2019- Yes 1000U Take 1,000 [facility]ivers 1,000 unit 0-23 Units by ity o f capsule 17:03: mouth [place] 43 daily. Medical Branch Magnesium 2019- Yes Take by Univ ers 250 mg Tab 0-23 mouth. ity of 17:03: [place] [address] Medical Branch vitamin B-6 2019- Yes 100mg Take 100 [facility]ivers (VITAMIN 0-23 mg by ity of B-6) 100 mg 17:03: mouth [place] tablet 43 daily. Medical Branch CALCIUM 2019- Yes Take by Univer s CARBONATE/V 0-23 mouth. ity of ITAMIN D3 17:03: [place] (VITAMIN 43 Medical D-3 ORAL) Branch alcaftadine 2019-[address] in [facility]ivers (LASTACAFT) 0-23 each eye. ity of 0.25 % Drop 17:03: [place] [address] Medical Branch CYCLOSPORIN 2019- Yes Place in [facility] E (RESTASIS 0-23 each eye. ity of OPHTHALMIC) 17:03: [place] [address] Medical Branch DOCOSAHEXAN 2019- Yes Take by [facility] [place] OIC 0-23 mouth. ity of ACID/EPA 17:03: [place] (FISH OIL 43 Medical ORAL) Branch vitamin E 2019- Yes 1000U Take 1,000 [facility]ivers 1,000 unit 0-23 Units by ity o f capsule 17:03: mouth [place] 43 daily. Medical Branch Magnesium 2020- Yes Take by Univ ers 250 mg Tab 0-23 mouth. ity of 17:03: [place] [address] Medical Branch vitamin B-6 2019- Yes 100mg Take 100 [facility]ivers (VITAMIN 0-23 mg by ity of B-6) 100 mg 17:03: mouth [place] tablet 43 daily. Medical Branch CALCIUM 2020-1 Yes Take by Univer s CARBONATE/V 0-23 mouth. ity of ITAMIN D3 17:03: [place] (VITAMIN 43 Medical D-3 ORAL) Branch DOCOSAHEXAN 2020- Yes Take by [facility] OIC 0-23 mouth. ity of ACID/EPA 17:03: [place] (FISH OIL 43 Medical ORAL) Branch DOCOSAHEXAN 2020- Yes Take by [facility] [place] OIC 0-23 mouth. ity of ACID/EPA 17:03: [place] (FISH OIL 43 Medical ORAL) Branch DOCOSAHEXAN 2020- Yes Take by [facility] [place] OIC 0-23 mouth. ity of ACID/EPA 17:03: [place] (FISH OIL 43 Medical ORAL) Branch DOCOSAHEXAN 2020- Yes Take by [facility] [place] OIC 0-23 mouth. ity of ACID/EPA 17:03: [place] (FISH OIL 43 Medical ORAL) Branch DOCOSAHEXAN 2020-1 Yes Take by [facility] [place] OIC 0-23 mouth. ity of ACID/EPA 17:03: [place] (FISH OIL 43 Medical ORAL) Branch DOCOSAHEXAN 2020-1 Yes Take by [facility] [place] OIC 0-23 mouth. ity of ACID/EPA 17:03: [place] (FISH OIL 43 Medical ORAL) Branch DOCOSAHEXAN 2020- Yes Take by [facility] [place] OIC 0-23 mouth. ity of ACID/EPA 17:03: [place] (FISH OIL 43 Medical ORAL) Branch DOCOSAHEXAN 2020-1 Yes Take by [facility] OIC 0-23 mouth. ity of ACID/EPA 17:03: [place] (FISH OIL 43 Medical ORAL) Branch DOCOSAHEXAN 2020-1 Yes Take by [facility] OIC 0-23 mouth. ity of ACID/EPA 17:03: [place] (FISH OIL 43 Medical ORAL) Branch DOCOSAHEXAN 2020-1 Yes Take by [facility] [place] OIC 0-23 mouth. ity of ACID/EPA 17:03: [place] (FISH OIL 43 Medical ORAL) Branch DOCOSAHEXAN 2020-1 Yes Take by [facility] [place] [facility]IC 0-23 mouth. ity of ACID/EPA 17:03: [place] (FISH OIL 43 Medical ORAL) Branch DOCOSAHEXAN 2019- Yes Take by [facility] [place] OIC 0-23 mouth. ity of ACID/EPA 17:03: [place] (FISH OIL 43 Medical ORAL) Branch DOCOSAHEXAN 2019-09 Yes Take by [facility] [place] OIC 0-23 mouth. ity of ACID/EPA 17:03: [place] (FISH OIL 43 Medical ORAL) Branch DOCOSAHEXAN 2019-09 Yes Take by [facility] [place] OIC 0-23 mouth. ity of ACID/EPA 17:03: [place] (FISH OIL 43 Medical ORAL) Branch metoprolol 2019-09 Yes [id number] 25mg Take 1 U nivers succinate 0-23 tablet by ity o f XL 25 mg 24 00:00: mouth 2 [place] tablet 00 (two) Medical times Branch daily. metoprolol 2019-09 Yes [id number] 25mg Take 1 [facility] n[facility] succinate 0-23 tablet by ity o f XL 25 mg 24 00:00: mouth 2 [place] tablet 00 (two) Medical times Branch daily. LEVOTHYROXI 2019- Yes [id number] TAKE 1 [facility] 50 mcg 0-23 TABLET BY ity o f tablet 00:00: MOUTH [place] 00 EVERY DAY Medical IN THE Branch MORNING metoprolol 2019- Yes [id number] 25mg Take 1 U nivers succinate 0-23 tablet by ity o f XL 25 mg 24 00:00: mouth 2 [place] tablet 00 (two) Medical times Branch daily. LEVOTHYROXI 2020- Yes [id number] TAKE 1 [facility] [place] 50 mcg 0-23 TABLET BY ity o f tablet 00:00: MOUTH [place] 00 EVERY DAY Medical IN THE Branch MORNING metoprolol 2019- Yes [id number] 25mg Take 1 U n[facility] succinate 0-23 tablet by ity o f XL 25 mg 24 00:00: mouth 2 [place] tablet 00 (two) Medical times Branch daily. LEVOTHYROXI 2020- Yes [id number] TAKE 1 [facility] [place] 50 mcg 0-23 TABLET BY ity o f tablet 00:00: MOUTH [place] 00 EVERY DAY Medical IN THE Branch MORNING metoprolol 2020- Yes [id number] 25mg Take 1 U nivers succinate 0-23 tablet by ity o f XL 25 mg 24 00:00: mouth 2 [place] tablet 00 (two) Medical times Branch daily. LEVOTHYROXI 2020- Yes [id number] TAKE 1 [facility] 50 mcg 0-23 TABLET BY ity o f tablet 00:00: MOUTH [place] 00 EVERY DAY Medical IN THE Branch MORNING metoprolol 2020- Yes [id number] 25mg Take 1 U nivers succinate 0-23 tablet by ity o f XL 25 mg 24 00:00: mouth 2 [place] tablet 00 (two) Medical times Branch daily. LEVOTHYROXI 2020- Yes [id number] TAKE 1 [facility] 50 mcg 0-23 TABLET BY ity o f tablet 00:00: MOUTH [place] 00 EVERY DAY Medical IN THE Branch MORNING metoprolol 2019- Yes [id number] 25mg Take 1 U nivers succinate 0-23 tablet by ity o f XL 25 mg 24 00:00: mouth 2 [place] tablet 00 (two) Medical times [place] daily. LEVOTHYROXI 2019- Yes [id number] TAKE 1 [facility] 50 mcg 0-23 TABLET BY ity o f tablet 00:00: MOUTH [place] 00 EVERY DAY Medical IN THE [place] MORNING metoprolol 2019- Yes [id number] 25mg Take 1 U nivers succinate 0-23 tablet by ity o f XL 25 mg 24 00:00: mouth 2 [place] tablet 00 (two) Medical times [place] daily. LEVOTHYROXI 2020- Yes [id number] TAKE 1 [facility] 50 mcg 0-23 TABLET BY ity o f tablet 00:00: MOUTH [place] 00 EVERY DAY Medical IN THE [place] MORNING metoprolol 2020- Yes [id number] 25mg Take 1 U nivers succinate 0-23 tablet by ity o f XL 25 mg 24 00:00: mouth 2 [place] tablet 00 (two) Medical times [place] daily. LEVOTHYROXI 2019- Yes [id number] TAKE 1 [facility] 50 mcg 0-23 TABLET BY ity o f tablet 00:00: MOUTH [place] 00 EVERY DAY Medical IN THE [place] MORNING metoprolol 2020- Yes [id number] 25mg Take 1 U nivers succinate 0-23 tablet by ity o f XL 25 mg 24 00:00: mouth 2 [place] tablet 00 (two) Medical times [place] daily. LEVOTHYROXI 2019- Yes [id number] TAKE 1 [facility] 50 mcg 0-23 TABLET BY ity o f tablet 00:00: MOUTH [place] 00 EVERY DAY Medical IN THE [place] MORNING metoprolol 2019-09 Yes [id number] 25mg Take 1 U nivers succinate 0-23 tablet by ity o f XL 25 mg 24 00:00: mouth 2 [place] tablet 00 (two) Medical times [place] daily. LEVOTHYROXI 2019-09 Yes [id number] TAKE 1 [facility] 50 mcg 0-23 TABLET BY ity o f tablet 00:00: MOUTH [place] 00 EVERY DAY Medical IN THE [place] MORNING metoprolol 2019-09 Yes [id number] 25mg Take 1 U nivers succinate 0-23 tablet by ity o f XL 25 mg 24 00:00: mouth 2 [place] tablet 00 (two) Medical times [place] daily. LEVOTHYROXI 2019-09 Yes [id number] TAKE 1 [facility] 50 mcg 0-23 TABLET BY ity o f tablet 00:00: MOUTH [place] 00 EVERY DAY Medical IN THE [place] MORNING metoprolol 2019-09 Yes [id number] 25mg Take 1 U nivers succinate 0-23 tablet by ity o f XL 25 mg 24 00:00: mouth 2 [place] tablet 00 (two) Medical times [place] daily. LEVOTHYROXI 2019-09 Yes [id number] TAKE 1 [facility] 50 mcg 0-23 TABLET BY ity o f tablet 00:00: MOUTH [place] 00 EVERY DAY Medical IN THE [place] MORNING metoprolol 2019-09 Yes [id number] 25mg Take 1 U nivers succinate 0-23 tablet by ity o f XL 25 mg 24 00:00: mouth 2 [place] tablet 00 (two) Medical times [place] daily. LEVOTHYROXI 2019-09 Yes [id number] TAKE 1 [facility] 50 mcg 0-23 TABLET BY ity o f tablet 00:00: MOUTH [place] 00 EVERY DAY Medical IN THE [place] MORNING LEVOTHYROXI 2019- Yes [id number] TAKE 1 [facility] [place] 50 mcg 0-23 TABLET BY ity o f tablet 00:00: MOUTH [place] 00 EVERY DAY Medical IN THE [place] MORNING LEVOTHYROXI 2019- Yes [id number] TAKE 1 [facility] 50 mcg 0-23 TABLET BY ity o f tablet 00:00: MOUTH [place] 00 EVERY DAY Medical IN THE [place] MORNING LEVOTHYROXI 2019- Yes [id number] TAKE 1 [facility] 50 mcg 0-23 TABLET BY ity o f tablet 00:00: MOUTH [place] 00 EVERY DAY Medical IN THE Branch MORNING LEVOTHYROXI 2019-09 Yes [id number] TAKE 1 [facility] [place] 50 mcg 0-23 TABLET BY ity o f tablet 00:00: MOUTH [place] 00 EVERY DAY Medical IN THE [facility] LEVOTHYROXI 2019-09 Yes [id number] TAKE 1 [facility] [place] 50 mcg 0-23 TABLET BY ity o f tablet 00:00: MOUTH [place] 00 EVERY DAY Medical IN THE [facility] LEVOTHYROXI 2019-09 Yes [id number] TAKE 1 [facility] [place] 50 mcg 0-23 TABLET BY ity o f tablet 00:00: MOUTH [place] 00 EVERY DAY Medical IN THE [facility] LEVOTHYROXI 2019-09 Yes [id number] TAKE 1 [facility] [place] 50 mcg 0-23 TABLET BY ity o f tablet 00:00: MOUTH [place] 00 EVERY DAY Medical IN THE [facility] LEVOTHYROXI 2019-09 Yes [id number] TAKE 1 [facility] [place] 50 mcg 0-23 TABLET BY ity o f tablet 00:00: MOUTH [place] 00 EVERY DAY Medical IN THE [facility] LEVOTHYROXI 2019-09 Yes [id number] TAKE 1 [facility] 50 mcg 0-23 TABLET BY ity o f tablet 00:00: MOUTH [place] 00 EVERY DAY Medical IN THE [facility] LEVOTHYROXI 2019-09 Yes [id number] TAKE 1 [facility] [place] 50 mcg 0-23 TABLET BY ity o f tablet 00:00: MOUTH [place] 00 EVERY DAY Medical IN THE [facility] LEVOTHYROXI 2019-09 Yes [id number] TAKE 1 [facility] [place] 50 mcg 0-23 TABLET BY ity o f tablet 00:00: MOUTH [place] 00 EVERY DAY Medical IN THE [facility] LEVOTHYROXI 2019-09 Yes [id number] TAKE 1 [facility] [place] 50 mcg 0-23 TABLET BY ity o f tablet 00:00: MOUTH [place] 00 EVERY DAY Medical IN THE [facility] LEVOTHYROXI 2019-09 Yes [id number] TAKE 1 [facility] [place] 50 mcg 0-23 TABLET BY ity o f tablet 00:00: MOUTH [place] 00 EVERY DAY Medical IN THE [facility] LEVOTHYROXI 2019-09 Yes [id number] TAKE 1 [facility] [place] 50 mcg 0-23 TABLET BY ity o f tablet 00:00: MOUTH [place] 00 EVERY DAY Medical IN THE [facility] LEVOTHYROXI 2019-09 Yes [id number] TAKE 1 [facility] 50 mcg 0-23 TABLET BY ity o f tablet 00:00: MOUTH [place] 00 EVERY DAY Medical IN THE [facility] LEVOTHYROXI 2020 Yes [id number] TAKE 1 [facility] 50 mcg 0-23 TABLET BY ity o f tablet 00:00: MOUTH [place] 00 EVERY DAY Medical IN THE [facility] LEVOTHYROXI 2020 Yes [id number] TAKE 1 [facility] 50 mcg 0-23 TABLET BY ity o f tablet 00:00: MOUTH [place] 00 EVERY DAY Medical IN THE [facility] LEVOTHYROXI 2019-09 Yes [id number] TAKE 1 [facility] [place] 50 mcg 0-23 TABLET BY ity o f tablet 00:00: MOUTH [place] 00 EVERY DAY Medical IN THE [facility] LEVOTHYROXI 2019-09 Yes [id number] TAKE 1 [facility] [place] 50 mcg 0-23 TABLET BY ity o f tablet 00:00: MOUTH [place] 00 EVERY DAY Medical IN THE [facility] LEVOTHYROXI 2019-09 Yes [id number] TAKE 1 [facility] [place] 50 mcg 0-23 TABLET BY ity o f tablet 00:00: MOUTH [place] 00 EVERY DAY Medical IN THE [facility] LEVOTHYROXI 2019-09 Yes [id number] TAKE 1 [facility] [place] 50 mcg 0-23 TABLET BY ity o f tablet 00:00: MOUTH [place] 00 EVERY DAY Medical IN THE [facility] LEVOTHYROXI 2019-09 Yes [id number] TAKE 1 [facility] 50 mcg 0-23 TABLET BY ity o f tablet 00:00: MOUTH [place] 00 EVERY DAY Medical IN THE [facility] LEVOTHYROXI 2019-09 Yes [id number] TAKE 1 [facility] 50 mcg 0-23 TABLET BY ity o f tablet 00:00: MOUTH [place] 00 EVERY DAY Medical IN THE [facility] LEVOTHYROXI 2019-09 Yes [id number] TAKE 1 [facility] 50 mcg 0-23 TABLET BY ity o f tablet 00:00: MOUTH [place] 00 EVERY DAY Medical IN THE [facility] LEVOTHYROXI 2020 Yes [id number] TAKE 1 [facility] 50 mcg 0-23 TABLET BY ity o f tablet 00:00: MOUTH [place] 00 EVERY DAY Medical IN THE [facility] LEVOTHYROXI 2020 Yes [id number] TAKE 1 [facility] [place] 50 mcg 0-23 TABLET BY ity o f tablet 00:00: MOUTH [place] 00 EVERY DAY Medical IN THE [facility] LEVOTHYROXI 2019-09 Yes [id number] TAKE 1 [facility] 50 mcg 0-23 TABLET BY ity o f tablet 00:00: MOUTH [place] 00 EVERY DAY Medical IN THE [place] MORNING LEVOTHYROXI 2019-09 Yes [id number] TAKE 1 [facility] 50 mcg 0-23 TABLET BY ity o f tablet 00:00: MOUTH [place] 00 EVERY DAY Medical IN THE [place] MORNING LEVOTHYROXI 2019-09 Yes [id number] TAKE 1 [facility] 50 mcg 0-23 TABLET BY ity o f tablet 00:00: MOUTH [place] 00 EVERY DAY Medical IN THE [place] MORNING LEVOTHYROXI 2019-09 Yes [id number] TAKE 1 [facility] 50 mcg 0-23 TABLET BY ity o f tablet 00:00: MOUTH [place] 00 EVERY DAY Medical IN THE [place] MORNING LEVOTHYROXI 2019-09 Yes [id number] TAKE 1 [facility] 50 mcg 0-23 TABLET BY ity o f tablet 00:00: MOUTH [place] 00 EVERY DAY Medical IN THE [facility] LEVOTHYROXI 2019-09- No [id number] TAKE 1 [facility] NE 50 mcg 0-23 05-05 TABLET BY ity of tablet 00:00: 00:00 MOUTH [place] 00 :00 EVERY DAY Medical IN THE [place] MORNING metoprolol 2019-09- No [id number] 25mg Take 1 Univers succinate 0-23 12-09 tablet by ity of XL 25 mg 24 00:00: 00:00 mouth 2 [place] hr tablet 00 :00 (two) Medical times [place] daily. metoprolol 2019-09- No [id number] 25mg Take 1 [facility] succinate 0-23 12-09 tablet by ity of XL 25 mg 24 00:00: 00:00 mouth 2 [place] hr tablet 00 :00 (two) Medical times [place] daily. metoprolol 2019-09- No [id number] 25mg Take 1 [facility] succinate 0-23 12-09 tablet by ity of XL 25 mg 24 00:00: 00:00 mouth 2 [place] hr tablet 00 :00 (two) Medical times [place] daily. ASCORBATE 2019-09- No Take by Uni vers CALCIUM 0-05 10-05 mouth. ity of (VITAMIN C 20:39: 00:00 [place] ORAL) 59 :00 [facility] Branch ASCORBATE 2019-09- No Take by Uni vers CALCIUM 0-05 10-05 mouth. ity of (VITAMIN C 20:39: 00:00 [place] ORAL) 59 :00 [facility] Branch CYCLOSPORIN 2019-[address] [facility] E (RESTASIS 0-05 each eye. ity of OPHTHALMIC) 20:35: Medical Branch DOCOSAHEXAN 2019-09 Yes Take by Un [place] OIC 0-05 mouth. ity of ACID/EPA 20:35: [place] (FISH OIL 33 Medical ORAL) Branch vitamin E 2019-09 Yes 1000U Take 1,000 U nivers 1,000 unit 0-05 Units by ity o f capsule 20:35: mouth [place] 33 daily. Medical Branch Magnesium 2019-09 Yes Take by Univ ers 250 mg Tab 0-05 mouth. ity of 20:35: Medical Branch vitamin B-6 2019-09 Yes 100mg Take 100 U nivers (VITAMIN 0-05 mg by ity of B-6) 100 mg 20:35: mouth [place] tablet 33 daily. Medical Branch CYCLOSPORIN 2019-[address] in [facility]ivers E (RESTASIS 0-05 each eye. ity of OPHTHALMIC) 20:35: Medical Branch DOCOSAHEXAN 2019-09 Yes Take by Un [place] OIC 0-05 mouth. ity of ACID/EPA 20:35: [place] (FISH OIL 33 Medical ORAL) Branch vitamin E 2019-09 Yes 1000U Take 1,000 U nivers 1,000 unit 0-05 Units by ity o f capsule 20:35: mouth [place] 33 daily. Medical Branch Magnesium 2019-09 Yes Take by Univ ers 250 mg Tab 0-05 mouth. ity of 20:35: Medical Branch vitamin B-6 2019-09 Yes 100mg Take 100 U nivers (VITAMIN 0-05 mg by ity of B-6) 100 mg 20:35: mouth [place] tablet 33 daily. Medical Branch CYCLOSPORIN 2019-[address] in [facility]ivers E (RESTASIS 0-05 each eye. ity of OPHTHALMIC) 20:35: Medical Branch DOCOSAHEXAN 2019-09 Yes Take by Un [place] OIC 0-05 mouth. ity of ACID/EPA 20:35: [place] (FISH OIL 33 Medical ORAL) Branch vitamin E 2019-09 Yes 1000U Take 1,000 U nivers 1,000 unit 0-05 Units by ity o f capsule 20:35: mouth [place] 33 daily. Medical Branch Magnesium 2019- Yes Take by Univ ers 250 mg Tab 0-05 mouth. ity of 20:35: Medical Branch vitamin B-6 2019-09 Yes 100mg Take 100 U nivers (VITAMIN 0-05 mg by ity of B-6) 100 mg 20:35: mouth [place] tablet 33 daily. Medical Branch CYCLOSPORIN 2019-[address] in [facility]ivers E (RESTASIS 0-05 each eye. ity of OPHTHALMIC) 20:35: [place] Medical Branch DOCOSAHEXAN 2019-09 Yes Take by Un [place] OIC 0-05 mouth. ity of ACID/EPA 20:35: [place] (FISH OIL 33 Medical ORAL) Branch vitamin E 2019-09 Yes 1000U Take 1,000 U nivers 1,000 unit 0-05 Units by ity o f capsule 20:35: mouth [place] 33 daily. Medical Branch Magnesium 2019- Yes Take by Univ ers 250 mg Tab 0-05 mouth. ity of 20:35: Medical Branch vitamin B-6 2019-09 Yes 100mg Take 100 U nivers (VITAMIN 0-05 mg by ity of B-6) 100 mg 20:35: mouth [place] tablet 33 daily. Medical Branch CYCLOSPORIN 2019-[address] in [facility]ivers E (RESTASIS 0-05 each eye. ity of OPHTHALMIC) 20:35: Medical Branch DOCOSAHEXAN 2019-09 Yes Take by [facility] [place] OIC 0-05 mouth. ity of ACID/EPA 20:35: [place] (FISH OIL 33 Medical ORAL) Branch vitamin E 2019-09 Yes 1000U Take 1,000 U nivers 1,000 unit 0-05 Units by ity o f capsule 20:35: mouth [place] 33 daily. Medical Branch Magnesium 2019- Yes Take by Univ ers 250 mg Tab 0-05 mouth. ity of 20:35: Medical Branch vitamin B-6 2019-09 Yes 100mg Take 100 U nivers (VITAMIN 0-05 mg by ity of B-6) 100 mg 20:35: mouth [place] tablet 33 daily. Medical Branch CYCLOSPORIN 2019-[address] in [facility]ivers E (RESTASIS 0-05 each eye. ity of OPHTHALMIC) 20:35: 33 Medical Branch DOCOSAHEXAN 2019- Yes Take by [facility] [place] OIC 0-05 mouth. ity of ACID/EPA 20:35: [place] (FISH OIL 33 Medical ORAL) Branch vitamin E 2019- Yes 1000U Take 1,000 U nivers 1,000 unit 0-05 Units by ity o f capsule 20:35: mouth [place] 33 daily. Medical Branch Magnesium 2019-09 Yes Take by Univ ers 250 mg Tab 0-05 mouth. ity of 20:35: [place] 33 Medical Branch vitamin B-6 2019-09 Yes 100mg Take 100 U nivers (VITAMIN 0-05 mg by ity of B-6) 100 mg 20:35: mouth [place] tablet 33 daily. Medical Branch CYCLOSPORIN 2019-[address] in [facility]ivers E (RESTASIS 0-05 each eye. ity of OPHTHALMIC) 20:35: Medical Branch DOCOSAHEXAN 2019-09 Yes Take by [facility] [place] OIC 0-05 mouth. ity of ACID/EPA 20:35: [place] (FISH OIL 33 Medical ORAL) Branch vitamin E 2019-09 Yes 1000U Take 1,000 U nivers 1,000 unit 0-05 Units by ity o f capsule 20:35: mouth [place] 33 daily. Medical Branch Magnesium 2019- Yes Take by Univ ers 250 mg Tab 0-05 mouth. ity of 20:35: Medical Branch vitamin B-6 2019-09 Yes 100mg Take 100 U nivers (VITAMIN 0-05 mg by ity of B-6) 100 mg 20:35: mouth [place] tablet 33 daily. Medical Branch CYCLOSPORIN 2019-[address] in [facility]ivers E (RESTASIS 0-05 each eye. ity of OPHTHALMIC) 20:35: Medical Branch DOCOSAHEXAN 2019-09 Yes Take by Un [place] OIC 0-05 mouth. ity of ACID/EPA 20:35: [place] (FISH OIL 33 Medical ORAL) Branch vitamin E 2019-09 Yes 1000U Take 1,000 U nivers 1,000 unit 0-05 Units by ity o f capsule 20:35: mouth [place] 33 daily. Medical Branch Magnesium 2019- Yes Take by Univ ers 250 mg Tab 0-05 mouth. ity of 20:35: Medical Branch vitamin B-6 2019-09 Yes 100mg Take 100 U nivers (VITAMIN 0-05 mg by ity of B-6) 100 mg 20:35: mouth [place] tablet 33 daily. Medical Branch metoprolol 2019-09 Yes [id number] 25mg Take 1 U nivers succinate 0-05 tablet by ity o f XL 25 mg 24 00:00: mouth [place] hr tablet 00 every day Medic al at 1200 Branch (noon). metformin 2020-1 Yes [id number] 750mg Take 1 U nivers ER 750 mg 0-05 tablet by ity o f 24 hr 00:00: mouth 2 [place] tablet 00 (two) Medical times Branch daily with meals. DOSE INCREASE. metoprolol 2019- Yes [id number] 25mg Take 1 U nivers succinate 0-05 tablet by ity o f XL 25 mg 24 00:00: mouth [place] hr tablet 00 every day Medic al at 1200 Branch (noon). metformin 2019- Yes [id number] 750mg Take 1 U nivers ER 750 mg 0-05 tablet by ity o f 24 hr 00:00: mouth 2 [place] tablet 00 (two) Medical times Branch daily with meals. DOSE INCREASE. metoprolol 2019- Yes [id number] 25mg Take 1 U nivers succinate 0-05 tablet by ity o f XL 25 mg 24 00:00: mouth [place] hr tablet 00 every day Medic al at 1200 Branch (noon). metformin 2019- Yes [id number] 750mg Take 1 U nivers ER 750 mg 0-05 tablet by ity o f 24 hr 00:00: mouth 2 [place] tablet 00 (two) Medical times Branch daily with meals. DOSE INCREASE. metoprolol 2019- Yes [id number] 25mg Take 1 U nivers succinate 0-05 tablet by ity o f XL 25 mg 24 00:00: mouth [place] hr tablet 00 every day Medic al at 1200 Branch (noon). metformin 2019- Yes [id number] 750mg Take 1 U nivers ER 750 mg 0-05 tablet by ity o f 24 hr 00:00: mouth 2 [place] tablet 00 (two) Medical times Branch daily with meals. DOSE INCREASE. metoprolol 2019- Yes [id number] 25mg Take 1 U nivers succinate 0-05 tablet by ity o f XL 25 mg 24 00:00: mouth [place] hr tablet 00 every day Medic al at 1200 Branch (noon). metformin 2019-1 Yes [id number] 750mg Take 1 U nivers ER 750 mg 0-05 tablet by ity o f 24 hr 00:00: mouth 2 [place] tablet 00 (two) Medical times Branch daily with meals. DOSE INCREASE. metoprolol 2019- Yes [id number] 25mg Take 1 U nivers succinate 0-05 tablet by ity o f XL 25 mg 24 00:00: mouth [place] hr tablet 00 every day Medic al at 1200 Branch (noon). metformin 2019- Yes [id number] 750mg Take 1 U nivers ER 750 mg 0-05 tablet by ity o f 24 hr 00:00: mouth 2 [place] tablet 00 (two) Medical times Branch daily with meals. DOSE INCREASE. metoprolol 2019- Yes [id number] 25mg Take 1 U nivers succinate 0-05 tablet by ity o f XL 25 mg 24 00:00: mouth [place] hr tablet 00 every day Medic al at 1200 Branch (noon). metformin 2019-09 Yes [id number] 750mg Take 1 [facility] 750 mg 0-05 tablet by [facility] o f 24 hr 00:00: mouth 2 [place] tablet 00 (two) Medical times Branch daily with meals. DOSE INCREASE. metoprolol 2019- Yes [id number] 25mg Take 1 [facility] succinate 0-05 tablet by ity o f XL 25 mg 24 00:00: mouth [place] hr tablet 00 every day Medic al at 1200 Branch (noon). metformin 2019-09 Yes [id number] 750mg Take 1 [facility] 750 mg 0-05 tablet by ity o f 24 hr 00:00: mouth 2 [place] tablet 00 (two) Medical times Branch daily with meals. DOSE INCREASE. metformin 2019- Yes [id number] 750mg Take 1 [facility] 750 mg 0-05 tablet by ity o f 24 hr 00:00: mouth 2 [place] tablet 00 (two) Medical times Branch daily with meals. DOSE INCREASE. metformin 2019- Yes [id number] 750mg Take 1 [facility] 750 mg 0-05 tablet by ity o f 24 hr 00:00: mouth 2 [place] tablet 00 (two) Medical times Branch daily with meals. DOSE INCREASE. metformin 2019- Yes [id number] 750mg Take 1 [facility] 750 mg 0-05 tablet by [facility] o f 24 hr 00:00: mouth 2 [place] tablet 00 (two) Medical times Branch daily with meals. DOSE INCREASE. metformin 2019- Yes [id number] 750mg Take 1 [facility] 750 mg 0-05 tablet by ity o f 24 hr 00:00: mouth 2 [place] tablet 00 (two) Medical times Branch daily with meals. DOSE INCREASE. metformin 2019- Yes [id number] 750mg Take 1 [facility] 750 mg 0-05 tablet by [facility] o f 24 hr 00:00: mouth 2 [place] tablet 00 (two) Medical times Branch daily with meals. DOSE INCREASE. metformin 2019- Yes [id number] 750mg Take 1 [facility] 750 mg 0-05 tablet by ity o f 24 hr 00:00: mouth 2 [place] tablet 00 (two) Medical times Branch daily with meals. DOSE INCREASE. metformin 2019-09 Yes [id number] 750mg Take 1 [facility] 750 mg 0-05 tablet by ity o f 24 hr 00:00: mouth 2 [place] tablet 00 (two) Medical times Branch daily with meals. DOSE INCREASE. metformin 2019-09 Yes [id number] 750mg Take 1 [facility] 750 mg 0-05 tablet by ity o f 24 hr 00:00: mouth 2 [place] tablet 00 (two) Medical times Branch daily with meals. DOSE INCREASE. metformin 2019-09 Yes [id number] 750mg Take 1 [facility] 750 mg 0-05 tablet by ity o f 24 hr 00:00: mouth 2 [place] tablet 00 (two) Medical times Branch daily with meals. DOSE INCREASE. metformin 2019-09 Yes [id number] 750mg Take 1 [facility] 750 mg 0-05 tablet by ity o f 24 hr 00:00: mouth 2 [place] tablet 00 (two) Medical times Branch daily with meals. DOSE INCREASE. metformin 2019-09 2020- No [id number] 750mg Take 1 [facility] 750 mg 0-05 11-28 tablet by [facility] of 24 hr 00:00: 00:00 mouth 2 [place] tablet 00 :00 (two) Medical times Branch daily with meals. DOSE INCREASE. metoprolol 2019-09- No [id number] 25mg Take 1 [facility] succinate 0-05 10-23 tablet by [facility] XL 25 mg 24 00:00: 00:00 mouth [place] tablet 00 :00 every day Medic al at 1200 Branch (noon). metoprolol 2019-09- No [id number] 25mg Take 1 [facility] succinate 0-05 10-23 tablet by [facility] of XL 25 mg 24 00:00: 00:00 mouth [place] tablet 00 :00 every day Medic al at 1200 Branch (noon). alcaftadine Yes Place in [facility] (LASTACA) 9- each eye. ity of 0.25 % Drop 19:20: [place] [address] Medical Branch CYCLOSPORIN 2020-[address] in [facility] E (RESTASIS 9- each eye. ity of OPHTHALMIC) 19:20: [place] [address] Medical Branch ASCORBATE 2020-0 Yes Take by [facility] ers CALCIUM 06-09 mouth. ity of (VITAMIN C 19:20: [place] ORAL) 49 Medical Branch DOCOSAHEXAN 2020-0 Yes Take by [facility] [place] OIC 06-09 mouth. ity of ACID/EPA 19:20: [place] (FISH OIL 49 Medical ORAL) Branch vitamin E 2020-0 Yes 1000U Take 1,000 [facility] 1,000 unit 9-23 Units by ity o f capsule 19:20: mouth [place] 49 daily. Medical Branch Magnesium 2020-0 Yes Take by [facility] ers 250 mg Tab 06-09 mouth. ity of 19:20: [place] [address] Medical Branch vitamin B-6 2020-0 Yes 100mg Take 100 [facility] (VITAMIN 9-23 mg by ity of B-6) 100 mg 19:20: mouth [place] tablet 49 daily. Medical Branch CALCIUM 2020-0 Yes Take by [facility] CARBONATE/V 06-09 mouth. ity of ITAMIN D3 19:20: [place] (VITAMIN 49 Medical D-3 ORAL) Branch alcaftadine 2020-[address] in [facility] (LASTACAFT) 9 each eye. ity of 0.25 % Drop 19:20: [place] [address] Medical Branch CYCLOSPORIN 2020-[address] in [facility] E (RESTASIS 9 each eye. ity of OPHTHALMIC) 19:20: [place] [address] Medical Branch ASCORBATE 2020-0 Yes Take by [place] [facility] ers CALCIUM 06-09 mouth. ity of (VITAMIN C 19:20: [place] ORAL) 49 Medical Branch DOCOSAHEXAN 2020-0 Yes Take by [facility] [place] OIC 06-09 mouth. ity of ACID/EPA 19:20: [place] (FISH OIL 49 Medical ORAL) Branch vitamin E 2020-0 Yes 1000U Take 1,000 [facility] 1,000 unit 9-23 Units by ity o f capsule 19:20: mouth [place] 49 daily. Medical Branch Magnesium 2020-0 Yes Take by [facility] 250 mg Tab 06-09 mouth. ity of 19:20: [place] [address] Medical Branch vitamin B-6 2020-0 Yes 100mg Take 100 [facility] (VITAMIN 9-23 mg by ity of B-6) 100 mg 19:20: mouth [place] tablet 49 daily. Medical Branch CALCIUM 2020-0 Yes Take by Un[facility] CARBONATE/V 06-09 mouth. ity of ITAMIN D3 19:20: [place] (VITAMIN 49 Medical D-3 ORAL) Branch alcaftadine 2020-[address] in [facility] (LASTACAFT) 06-09 each eye. ity of 0.25 % Drop 19:20: [place] [address] Medical Branch CYCLOSPORIN 2020-[address] in [facility] E (RESTASIS 06-09 each eye. ity of OPHTHALMIC) 19:20: [place] [address] Medical Branch ASCORBATE 2020-0 Yes Take by [facility] ers CALCIUM 06-09 mouth. ity of (VITAMIN C 19:20: [place] ORAL) 49 Medical Branch DOCOSAHEXAN 2020-0 Yes Take by [facility] [place] OIC 06-09 mouth. ity of ACID/EPA 19:20: [place] (FISH OIL 49 Medical ORAL) Branch vitamin E 2020-0 Yes 1000U Take 1,000 [facility] 1,000 unit 06-09 Units by ity o f capsule 19:20: mouth [place] 49 daily. Medical Branch Magnesium 2020-0 Yes Take by Univ ers 250 mg Tab 06-09 mouth. ity of 19:20: [place] [address] Medical Branch vitamin B-6 2020-0 Yes 100mg Take 100 [facility] (VITAMIN - mg by ity of B-6) 100 mg 19:20: mouth [place] tablet 49 daily. Medical Branch CALCIUM 2020-0 Yes Take by Un[facility] s CARBONATE/V 06-09 mouth. ity of ITAMIN D3 19:20: [place] (VITAMIN 49 Medical D-3 ORAL) Branch alcaftadine 2020-[address] in [facility] (LASTACAFT) 06-09 each eye. ity of 0.25 % Drop 19:20: [place] [address] Medical Branch CYCLOSPORIN 2020-[address] in [facility] E (RESTASIS 06-09 each eye. ity of OPHTHALMIC) 19:20: [place] [address] Medical Branch ASCORBATE 2020-0 Yes Take by [facility] ers CALCIUM 06-09 mouth. ity of (VITAMIN C 19:20: [place] ORAL) 49 Medical Branch DOCOSAHEXAN 2020-0 Yes Take by [facility] [place] OIC 06-09 mouth. ity of ACID/EPA 19:20: [place] (FISH OIL 49 Medical ORAL) Branch vitamin E 2020-0 Yes 1000U Take 1,000 [facility] 1,000 unit 9-23 Units by ity o f capsule 19:20: mouth [place] 49 daily. Medical Branch Magnesium 2020-0 Yes Take by [facility] ers 250 mg Tab - mouth. ity of 19:20: [place] [address] Medical Branch vitamin B-6 2020-0 Yes 100mg Take 100 [facility] (VITAMIN 9-23 mg by ity of B-6) 100 mg 19:20: mouth [place] tablet 49 daily. Medical Branch CALCIUM 2020-0 Yes Take by Univer s CARBONATE/V 06-09 mouth. ity of ITAMIN D3 19:20: [place] (VITAMIN 49 Medical D-3 ORAL) Branch alcaftadine 2020-[address] in [facility] (LASTACAFT) 9 each eye. ity of 0.25 % Drop 19:20: [place] [address] Medical Branch CYCLOSPORIN 2020-[address] in [facility] E (RESTASIS 06-09 each eye. ity of OPHTHALMIC) 19:20: [place] [address] Medical Branch ASCORBATE 2020-0 Yes Take by [facility] ers CALCIUM - mouth. ity of (VITAMIN C 19:20: [place] ORAL) 49 Medical Branch DOCOSAHEXAN 2020-0 Yes Take by [facility] [place] OIC - mouth. ity of ACID/EPA 19:20: [place] (FISH OIL 49 Medical ORAL) Branch vitamin E 2020-0 Yes 1000U Take 1,000 [facility]ivers 1,000 unit 9-23 Units by ity o f capsule 19:20: mouth [place] 49 daily. Medical Branch Magnesium 2020-0 Yes Take by [facility] ers 250 mg Tab 06-09 mouth. ity of 19:20: [place] [address] Medical Branch vitamin B-6 2020-0 Yes 100mg Take 100 [facility] (VITAMIN 9-23 mg by ity of B-6) 100 mg 19:20: mouth [place] tablet 49 daily. Medical Branch CALCIUM 2020-0 Yes Take by Univer s CARBONATE/V - mouth. ity of ITAMIN D3 19:20: [place] (VITAMIN 49 Medical D-3 ORAL) Branch alcaftadine 2020-[address] in [facility] (LASTACAFT) 9- each eye. ity of 0.25 % Drop 19:20: [place] [address] Medical Branch CYCLOSPORIN 2020-[address] in [facility] E (RESTASIS 06-09 each eye. ity of OPHTHALMIC) 19:20: [place] [address] Medical Branch ASCORBATE 2020-0 Yes Take by Univ ers CALCIUM 06-09 mouth. ity of (VITAMIN C 19:20: [place] ORAL) 49 Medical Branch DOCOSAHEXAN 2020-0 Yes Take by [facility] [place] OIC 06-09 mouth. ity of ACID/EPA 19:20: [place] (FISH OIL 49 Medical ORAL) Branch vitamin E 2020-0 Yes 1000U Take 1,000 [facility] 1,000 unit 06-09 Units by ity o f capsule 19:20: mouth [place] 49 daily. Medical Branch Magnesium 2020-0 Yes Take by [facility] ers 250 mg Tab 06-09 mouth. ity of 19:20: [place] [address] Medical Branch vitamin B-6 2020-0 Yes 100mg Take 100 [facility] (VITAMIN - mg by ity of B-6) 100 mg 19:20: mouth [place] tablet 49 daily. Medical Branch CALCIUM 2020-0 Yes Take by Univer s CARBONATE/V 06-09 mouth. ity of ITAMIN D3 19:20: [place] (VITAMIN 49 Medical D-3 ORAL) Branch alcaftadine 2020-[address] in [facility] (LASTACAFT) 06-09 each eye. ity of 0.25 % Drop 19:20: [place] [address] Medical Branch CALCIUM 2020-0 Yes Take by Un[facility] s CARBONATE/V 06-09 mouth. ity of ITAMIN D3 19:20: [place] (VITAMIN 49 Medical D-3 ORAL) Branch alcaftadine 2020-[address] in [facility] (LASTACAFT) 9 each eye. ity of 0.25 % Drop 19:20: [place] [address] Medical Branch CALCIUM 2020-0 Yes Take by Un[facility] s CARBONATE/V 06-09 mouth. ity of ITAMIN D3 19:20: [place] (VITAMIN 49 Medical D-3 ORAL) Branch alcaftadine 2020-[address] in [facility] (LASTACAFT) 9 each eye. ity of 0.25 % Drop 19:20: [place] [address] Medical Branch CALCIUM 2020-0 Yes Take by Un[facility] CARBONATE/V 06-09 mouth. ity of ITAMIN D3 19:20: [place] (VITAMIN 49 Medical D-3 ORAL) Branch alcaftadine 2020-[address] in [facility] (LASTACAFT) 9 each eye. ity of 0.25 % Drop 19:20: [place] [address] Medical Branch CALCIUM 2020-0 Yes Take by Un[facility] CARBONATE/V 06-09 mouth. ity of ITAMIN D3 19:20: [place] (VITAMIN 49 Medical D-3 ORAL) Branch alcaftadine 2020-[address] in [facility] (LASTACAFT) 06-09 each eye. ity of 0.25 % Drop 19:20: [place] [address] Medical Branch CALCIUM 2020-0 Yes Take by Un[facility] s CARBONATE/V 06-09 mouth. ity of ITAMIN D3 19:20: [place] (VITAMIN 49 Medical D-3 ORAL) Branch alcaftadine 2020-[address] in [facility] (LASTACAFT) 9 each eye. ity of 0.25 % Drop 19:20: [place] [address] Medical Branch CALCIUM 2020-0 Yes Take by Un[facility] s CARBONATE/V 06-09 mouth. ity of ITAMIN D3 19:20: [place] (VITAMIN 49 Medical D-3 ORAL) Branch alcaftadine 2020-[address] in [facility] (LASTACAFT) 9 each eye. ity of 0.25 % Drop 19:20: [place] [address] Medical Branch CALCIUM 2020-0 Yes Take by [facility] s CARBONATE/V 06-09 mouth. ity of ITAMIN D3 19:20: [place] (VITAMIN 49 Medical D-3 ORAL) Branch alcaftadine 2020-[address] in [facility] (LASTACAFT) 06-09 each eye. ity of 0.25 % Drop 19:20: [place] [address] Medical Branch CALCIUM 2020-0 Yes Take by Univer s CARBONATE/V 06-09 mouth. ity of ITAMIN D3 19:20: [place] (VITAMIN 49 Medical D-3 ORAL) Branch metoprolol 2020-0 Yes [id number] 25mg Take 1 [facility] succinate 9-23 tablet by ity o f XL 25 mg 24 00:00: mouth at [place] hr tablet 00 bedtime. Medica l Branch metoprolol 2020-0 Yes [id number] 25mg Take 1 [facility] succinate 9-23 tablet by ity o f XL 25 mg 24 00:00: mouth at [place] hr tablet 00 bedtime. Medica l Branch metoprolol 2020-0 Yes [id number] 25mg Take 1 [facility] succinate 9-23 tablet by ity o f XL 25 mg 24 00:00: mouth at [place] tablet 00 bedtime. Medica l Branch metoprolol 2020-0 Yes [id number] 25mg Take 1 [facility] succinate 9-23 tablet by ity o f XL 25 mg 24 00:00: mouth at [place] hr tablet 00 bedtime. Medica l Branch metoprolol 2020-0 Yes [id number] 25mg Take 1 [facility] succinate 9-23 tablet by ity o f XL 25 mg 24 00:00: mouth at [place] hr tablet 00 bedtime. Medica l Branch metoprolol 2019-0 Yes [id number] 25mg Take 1 [facility] succinate 9-23 tablet by ity o f XL 25 mg 24 00:00: mouth at [place] hr tablet 00 bedtime. Medica l Branch metoprolol 2019-0 Yes [id number] 25mg Take 1 [facility] succinate 9-23 tablet by ity o f XL 25 mg 24 00:00: mouth at [place] hr tablet 00 bedtime. Medica l Branch metoprolol 2019-0 2020- No [id number] 25mg Take 1 [facility] succinate 9-23 10-05 tablet by ity of XL 25 mg 24 00:00: 00:00 mouth at [place] hr tablet 00 :00 bedtime. Medica l Branch metoprolol 2019-0 2020- No [id number] 25mg Take 1 [facility] succinate 9-23 10-05 tablet by ity of XL 25 mg 24 00:00: 00:00 mouth at [place] hr tablet 00 :00 bedtime. Medica l Branch LOSARTAN 25 2019-0 Yes [id number] TAKE 1 [facility] mg tablet - TABLET BY ity o f 00:00: MOUTH [place] 00 EVERY DAY Medical Branch LOSARTAN 25 2019-0 2020- No [id number] TAKE 1 [facility] mg tablet -08 06- TABLET BY ity of 00:00: 00:00 MOUTH [place] 00 :00 EVERY DAY Medical Branch losartan 25 2019-0 Yes [id number] 25mg Take 1 [facility] mg tablet 9-21 tablet by ity o f 00:00: mouth [place] 00 daily. Medical Branch traZODone 2019-0 Yes [id number] 100mg Take 1 [facility] 100 mg 9-21 tablet by ity of tablet 00:00: mouth at [place] 00 bedtime as Medical needed for Branch Insomnia. losartan 25 2019-0 Yes [id number] 25mg Take 1 [facility] mg tablet 9-21 tablet by ity o f 00:00: mouth [place] 00 daily. Medical Branch traZODone 2020-0 Yes [id number] 100mg Take 1 [facility] 100 mg 9-21 tablet by ity of tablet 00:00: mouth at [place] 00 bedtime as Medical needed for Branch Insomnia. traZODone 2020-0 Yes [id number] 100mg Take 1 [facility] 100 mg 9-21 tablet by ity of tablet 00:00: mouth at [place] 00 bedtime as Medical needed for Branch Insomnia. traZODone 2020-0 Yes [id number] 100mg Take 1 [facility] 100 mg 9-21 tablet by ity of tablet 00:00: mouth at [place] 00 bedtime as Medical needed for Branch Insomnia. traZODone 2020-0 Yes [id number] 100mg Take 1 [facility] 100 mg 9-21 tablet by ity of tablet 00:00: mouth at [place] 00 bedtime as Medical needed for Branch Insomnia. traZODone 2020-0 Yes [id number] 100mg Take 1 [facility] 100 mg 9-21 tablet by ity of tablet 00:00: mouth at [place] 00 bedtime as Medical needed for Branch Insomnia. traZODone 2020-0 Yes [id number] 100mg Take 1 [facility] 100 mg 9-21 tablet by ity of tablet 00:00: mouth at [place] 00 bedtime as Medical needed for Branch Insomnia. traZODone 2020-0 Yes [id number] 100mg Take 1 [facility] 100 mg 9-21 tablet by ity of tablet 00:00: mouth at [place] 00 bedtime as Medical needed for Branch Insomnia. traZODone 2020-0 Yes [id number] 100mg Take 1 [facility] 100 mg 9-21 tablet by ity of tablet 00:00: mouth at [place] 00 bedtime as Medical needed for Branch Insomnia. traZODone 2020-0 Yes [id number] 100mg Take 1 [facility] 100 mg 9-21 tablet by ity of tablet 00:00: mouth at [place] 00 bedtime as Medical needed for Branch Insomnia. traZODone 2020-0 Yes [id number] 100mg Take 1 [facility] 100 mg 9-21 tablet by ity of tablet 00:00: mouth at [place] 00 bedtime as Medical needed for Branch Insomnia. traZODone 2020-0 Yes [id number] 100mg Take 1 [facility] 100 mg 9-21 tablet by ity of tablet 00:00: mouth at [place] 00 bedtime as Medical needed for Branch Insomnia. traZODone 2020-0 Yes [id number] 100mg Take 1 [facility] 100 mg 9-21 tablet by ity of tablet 00:00: mouth at [place] 00 bedtime as Medical needed for Branch Insomnia. traZODone 2020-0 Yes [id number] 100mg Take 1 [facility] 100 mg 9-21 tablet by ity of tablet 00:00: mouth at [place] 00 bedtime as Medical needed for Branch Insomnia. traZODone 2020-0 Yes [id number] 100mg Take 1 [facility] 100 mg 9-21 tablet by ity of tablet 00:00: mouth at [place] 00 bedtime as Medical needed for Branch Insomnia. traZODone 2020-0 Yes [id number] 100mg Take 1 [facility] 100 mg 9-21 tablet by ity of tablet 00:00: mouth at [place] 00 bedtime as Medical needed for Branch Insomnia. traZODone 2020-0 Yes [id number] 100mg Take 1 [facility] 100 mg 9-21 tablet by ity of tablet 00:00: mouth at [place] 00 bedtime as Medical needed for Branch Insomnia. traZODone 2020-0 Yes [id number] 100mg Take 1 [facility] 100 mg 9-21 tablet by ity of tablet 00:00: mouth at [place] [address] bedtime as Medical needed for Branch Insomnia. traZODone 2020-0 Yes [id number] 100mg Take 1 [facility] 100 mg 9-21 tablet by ity of tablet 00:00: mouth at [place] [address] bedtime as Medical needed for Branch Insomnia. traZODone 2020-0 Yes [id number] 100mg Take 1 [facility] 100 mg 9-21 tablet by ity of tablet 00:00: mouth at [place] 00 bedtime as Medical needed for Branch Insomnia. traZODone 2020-0 Yes [id number] 100mg Take 1 [facility] 100 mg 9-21 tablet by ity of tablet 00:00: mouth at [place] 00 bedtime as Medical needed for Branch Insomnia. traZODone 2020-0 Yes [id number] 100mg Take 1 [facility] 100 mg 9-21 tablet by ity of tablet 00:00: mouth at [place] 00 bedtime as Medical needed for Branch Insomnia. traZODone 2020-0 Yes [id number] 100mg Take 1 [facility] 100 mg 9-21 tablet by ity of tablet 00:00: mouth at [place] 00 bedtime as Medical needed for Branch Insomnia. traZODone 2020-0 Yes [id number] 100mg Take 1 [facility] 100 mg 9-21 tablet by ity of tablet 00:00: mouth at [place] 00 bedtime as Medical needed for Branch Insomnia. traZODone 2020-0 Yes [id number] 100mg Take 1 [facility] 100 mg 9-21 tablet by ity of tablet 00:00: mouth at [place] 00 bedtime as Medical needed for Branch Insomnia. traZODone 2020-0 Yes [id number] 100mg Take 1 [facility] 100 mg 9-21 tablet by ity of tablet 00:00: mouth at [place] 00 bedtime as Medical needed for Branch Insomnia. traZODone 2020-0 Yes [id number] 100mg Take 1 [facility] 100 mg 9-21 tablet by ity of tablet 00:00: mouth at [place] 00 bedtime as Medical needed for Branch Insomnia. traZODone 2020-0 Yes [id number] 100mg Take 1 [facility] 100 mg 9-21 tablet by ity of tablet 00:00: mouth at [place] 00 bedtime as Medical needed for Branch Insomnia. traZODone 2020-0 Yes [id number] 100mg Take 1 [facility] 100 mg 9-21 tablet by ity of tablet 00:00: mouth at [place] [address] bedtime as Medical needed for Branch Insomnia. traZODone 2020-0 Yes [id number] 100mg Take 1 [facility] 100 mg 9-21 tablet by ity of tablet 00:00: mouth at [place] 00 bedtime as Medical needed for Branch Insomnia. traZODone 2020-0 Yes [id number] 100mg Take 1 [facility] 100 mg 9-21 tablet by ity of tablet 00:00: mouth at [place] 00 bedtime as Medical needed for Branch Insomnia. traZODone 2020-0 Yes [id number] 100mg Take 1 [facility] 100 mg 9-21 tablet by ity of tablet 00:00: mouth at [place] 00 bedtime as Medical needed for Branch Insomnia. traZODone 2020-0 Yes [id number] 100mg Take 1 [facility] 100 mg 9-21 tablet by ity of tablet 00:00: mouth at [place] 00 bedtime as Medical needed for Branch Insomnia. traZODone 2020-0 Yes [id number] 100mg Take 1 [facility] 100 mg 9-21 tablet by ity of tablet 00:00: mouth at [place] 00 bedtime as Medical needed for Branch Insomnia. traZODone 2020-0 Yes [id number] 100mg Take 1 [facility] 100 mg 9-21 tablet by ity of tablet 00:00: mouth at [place] 00 bedtime as Medical needed for Branch Insomnia. traZODone 2020-0 Yes [id number] 100mg Take 1 [facility] 100 mg 9-21 tablet by ity of tablet 00:00: mouth at [place] 00 bedtime as Medical needed for Branch Insomnia. traZODone 2020-0 Yes [id number] 100mg Take 1 [facility] 100 mg 9-21 tablet by ity of tablet 00:00: mouth at [place] 00 bedtime as Medical needed for Branch Insomnia. traZODone 2020-0 Yes [id number] 100mg Take 1 [facility] 100 mg 9-21 tablet by ity of tablet 00:00: mouth at [place] 00 bedtime as Medical needed for Branch Insomnia. traZODone 2020-0 Yes [id number] 100mg Take 1 [facility] 100 mg 9-21 tablet by ity of tablet 00:00: mouth at [place] 00 bedtime as Medical needed for Branch Insomnia. traZODone 2020-0 Yes [id number] 100mg Take 1 [facility] 100 mg 9-21 tablet by ity of tablet 00:00: mouth at [place] [address] bedtime as Medical needed for Branch Insomnia. traZODone 2020-0 Yes [id number] 100mg Take 1 [facility] 100 mg 9-21 tablet by ity of tablet 00:00: mouth at [place] 00 bedtime as Medical needed for Branch Insomnia. traZODone 2020-0 Yes [id number] 100mg Take 1 [facility] 100 mg 9-21 tablet by ity of tablet 00:00: mouth at [place] 00 bedtime as Medical needed for Branch Insomnia. traZODone 2020-0 Yes [id number] 100mg Take 1 [facility] 100 mg 9-21 tablet by ity of tablet 00:00: mouth at [place] 00 bedtime as Medical needed for Branch Insomnia. traZODone 2020-0 Yes [id number] 100mg Take 1 [facility] 100 mg 9-21 tablet by ity of tablet 00:00: mouth at [place] 00 bedtime as Medical needed for Branch Insomnia. traZODone 2020-0 Yes [id number] 100mg Take 1 [facility] 100 mg 9-21 tablet by ity of tablet 00:00: mouth at [place] 00 bedtime as Medical needed for Branch Insomnia. traZODone 2020-0 Yes [id number] 100mg Take 1 [facility] 100 mg 9-21 tablet by ity of tablet 00:00: mouth at [place] 00 bedtime as Medical needed for Branch Insomnia. traZODone 2020-0 Yes [id number] 100mg Take 1 [facility] 100 mg 9-21 tablet by ity of tablet 00:00: mouth at [place] 00 bedtime as Medical needed for Branch Insomnia. traZODone 2020-0 Yes [id number] 100mg Take 1 [facility] 100 mg 9-21 tablet by ity of tablet 00:00: mouth at [place] 00 bedtime as Medical needed for Branch Insomnia. traZODone 2020-0 Yes [id number] 100mg Take 1 [facility] 100 mg 9-21 tablet by ity of tablet 00:00: mouth at [place] 00 bedtime as Medical needed for Branch Insomnia. traZODone 2020-0 Yes [id number] 100mg Take 1 [facility] 100 mg 9-21 tablet by ity of tablet 00:00: mouth at [place] 00 bedtime as Medical needed for Branch Insomnia. traZODone 2020-0 Yes [id number] 100mg Take 1 [facility] 100 mg 9-21 tablet by ity of tablet 00:00: mouth at [place] [address] bedtime as Medical needed for Branch Insomnia. traZODone 2020-0 Yes [id number] 100mg Take 1 [facility] 100 mg 9-21 tablet by ity of tablet 00:00: mouth at [place] [address] bedtime as Medical needed for Branch Insomnia. traZODone 2020-0 Yes [id number] 100mg Take 1 [facility] 100 mg 9-21 tablet by ity of tablet 00:00: mouth at [place] 00 bedtime as Medical needed for Branch Insomnia. traZODone 2020-0 Yes [id number] 100mg Take 1 [facility] 100 mg 9-21 tablet by ity of tablet 00:00: mouth at [place] 00 bedtime as Medical needed for Branch Insomnia. traZODone 2020-0 Yes [id number] 100mg Take 1 [facility] 100 mg 9-21 tablet by ity of tablet 00:00: mouth at [place] 00 bedtime as Medical needed for Branch Insomnia. traZODone 2020-0 Yes [id number] 100mg Take 1 [facility] 100 mg 9-21 tablet by ity of tablet 00:00: mouth at [place] 00 bedtime as Medical needed for Branch Insomnia. traZODone 2020-0 Yes [id number] 100mg Take 1 [facility] 100 mg 9-21 tablet by ity of tablet 00:00: mouth at [place] 00 bedtime as Medical needed for Branch Insomnia. traZODone 2020-0 Yes [id number] 100mg Take 1 [facility] 100 mg 9-21 tablet by ity of tablet 00:00: mouth at [place] 00 bedtime as Medical needed for Branch Insomnia. traZODone 2020-0 Yes [id number] 100mg Take 1 [facility] 100 mg 9-21 tablet by ity of tablet 00:00: mouth at [place] 00 bedtime as Medical needed for Branch Insomnia. traZODone 2020-0 Yes [id number] 100mg Take 1 [facility] 100 mg 9-21 tablet by ity of tablet 00:00: mouth at [place] 00 bedtime as Medical needed for Branch Insomnia. traZODone 2020-0 Yes [id number] 100mg Take 1 [facility] 100 mg 9-21 tablet by ity of tablet 00:00: mouth at [place] 00 bedtime as Medical needed for Branch Insomnia. traZODone 2020-0 Yes [id number] 100mg Take 1 [facility] 100 mg 9-21 tablet by ity of tablet 00:00: mouth at [place] 00 bedtime as Medical needed for Branch Insomnia. traZODone 2020-0 Yes [id number] 100mg Take 1 [facility] 100 mg 9-21 tablet by ity of tablet 00:00: mouth at [place] 00 bedtime as Medical needed for Branch Insomnia. traZODone 2019-0 2020- No [id number] 100mg Take 1 [facility] 100 mg 9-21 -18 tablet by ity of tablet 00:00: 00:00 mouth at [place] 00 :00 bedtime as Medical needed for Branch Insomnia. losartan 25 2019-0 2020- No [id number] 25mg Take 1 [facility] mg tablet 06-07 tablet by ity of 00:00: 00:00 mouth [place] 00 :00 daily. Medical Branch NaCl 0.9% 2019-0 2019- No 1000mL at 999 [facility] vers (NS) bolus 06-03- mL/hr, ity of infusion 20:30: 22:00 1,000 mL, Edward as 1,000 mL 00 :00 IV Medical Infusion, Branch ONCE, 1 dose, Sarah 06/03/20 at 1530, BASIL RAMELTEON 8 2019-0 Yes [id number] 8mg TAKE 1 [facility] mg tablet 9-16 TABLET BY ity o f 00:00: MOUTH AT [place] 00 BEDTIME Medical NEEDED FOR Branch INSOMNIA. STOP TRAZODONE. RAMELTEON 8 2019-0 Yes [id number] 8mg TAKE 1 [facility] mg tablet 9-16 TABLET BY ity o f 00:00: MOUTH AT [place] 00 BEDTIME Medical NEEDED FOR Branch INSOMNIA. STOP TRAZODONE. RAMELTEON 8 2019-0 Yes [id number] 8mg TAKE 1 [facility] mg tablet 9-16 TABLET BY ity o f 00:00: MOUTH AT [place] 00 BEDTIME Medical NEEDED FOR Branch INSOMNIA. STOP TRAZODONE. RAMELTEON 8 2019-0 2020- No [id number] 8mg TAKE 1 [facility] mg tablet 9-16 -21 TABLET BY ity of 00:00: 00:00 MOUTH AT [place] 00 :00 BEDTIME Medical NEEDED FOR Branch INSOMNIA. STOP TRAZODONE. RAMELTEON 8 2019-0 2020- No [id number] 8mg TAKE 1 [facility] mg tablet 9-16 - TABLET BY ity of 00:00: 00:00 MOUTH AT [place] 00 :00 BEDTIME Medical NEEDED FOR Branch INSOMNIA. STOP TRAZODONE. oxyCODONE-a 2019-0 2020- No 1{tbl} Take 1 [facility] n[facility] cetaminophe 9-10 09-10 tablet by it y of n 7.5-325 22:39: 00:00 mouth 2 [place] 20 :00 (two) Medical tablet times Branch daily as needed for Pain. TRIAMTERENE 2020-0 Yes [id number] TAKE 2 [facility] -HYDROCHLOR 9-08 TABLETS BY it y of OTHIAZID 00:00: MOUTH [place] 37.5-25 mg 00 EVERY DAY Medi kacey tablet Branch TRIAMTERENE 2020-0 Yes [id number] TAKE 2 [facility] -HYDROCHLOR 9-08 TABLETS BY it y of OTHIAZID 00:00: MOUTH [place] 37.5-25 mg 00 EVERY DAY Medi kacey tablet Branch TRIAMTERENE 2020-0 Yes [id number] TAKE 2 [facility] -HYDROCHLOR 9-08 TABLETS BY it y of OTHIAZID 00:00: MOUTH [place] 37.5-25 mg 00 EVERY DAY Medi kacey tablet Branch TRIAMTERENE 2020-0 Yes [id number] TAKE 2 [facility] -HYDROCHLOR 9-08 TABLETS BY it y of OTHIAZID 00:00: MOUTH [place] 37.5-25 mg 00 EVERY DAY Medi kacey tablet Branch TRIAMTERENE 2020-0 Yes [id number] TAKE 2 [facility] -HYDROCHLOR 9-08 TABLETS BY it y of OTHIAZID 00:00: MOUTH [place] 37.5-25 mg 00 EVERY DAY Medi kacey tablet Branch TRIAMTERENE 2020-0 Yes [id number] TAKE 2 [facility] -HYDROCHLOR 9-08 TABLETS BY it y of OTHIAZID 00:00: MOUTH [place] 37.5-25 mg 00 EVERY DAY Medi kacey tablet Branch TRIAMTERENE 2020-0 Yes [id number] TAKE 2 [facility] -HYDROCHLOR 9-08 TABLETS BY it y of OTHIAZID 00:00: MOUTH [place] 37.5-25 mg 00 EVERY DAY Medi kacey tablet Branch TRIAMTERENE 2020-0 Yes [id number] TAKE 2 [facility] -HYDROCHLOR 9-08 TABLETS BY it y of OTHIAZID 00:00: MOUTH [place] 37.5-25 mg 00 EVERY DAY Medi kacey tablet Branch TRIAMTERENE 2020-0 Yes [id number] TAKE 2 [facility] -HYDROCHLOR 9-08 TABLETS BY it y of OTHIAZID 00:00: MOUTH [place] 37.5-25 mg 00 EVERY DAY Medi kacey tablet Branch TRIAMTERENE 2020-0 Yes [id number] TAKE 2 [facility] -HYDROCHLOR 9-08 TABLETS BY it y of OTHIAZID 00:00: MOUTH [place] 37.5-25 mg 00 EVERY DAY Medi kacey tablet Branch TRIAMTERENE 2020-0 Yes [id number] TAKE 2 [facility] -HYDROCHLOR 9-08 TABLETS BY it y of OTHIAZID 00:00: MOUTH [place] 37.5-25 mg 00 EVERY DAY Medi kacey tablet Branch TRIAMTERENE 2020-0 Yes [id number] TAKE 2 [facility] -HYDROCHLOR 9-08 TABLETS BY it y of OTHIAZID 00:00: MOUTH [place] 37.5-25 mg 00 EVERY DAY Medi kacey tablet Branch TRIAMTERENE 2020-0 Yes [id number] TAKE 2 [facility] -HYDROCHLOR 9-08 TABLETS BY it y of OTHIAZID 00:00: MOUTH [place] 37.5-25 mg 00 EVERY DAY Medi kacey tablet Branch TRIAMTERENE 2020-0 Yes [id number] TAKE 2 [facility] -HYDROCHLOR 9-08 TABLETS BY it y of OTHIAZID 00:00: MOUTH [place] 37.5-25 mg 00 EVERY DAY Medi kacey tablet Branch TRIAMTERENE 2020-0 Yes [id number] TAKE 2 [facility] -HYDROCHLOR 9-08 TABLETS BY it y of OTHIAZID 00:00: MOUTH [place] 37.5-25 mg 00 EVERY DAY Medi kacey tablet Branch TRIAMTERENE 2020-0 Yes [id number] TAKE 2 [facility] -HYDROCHLOR 9-08 TABLETS BY it y of OTHIAZID 00:00: MOUTH [place] 37.5-25 mg 00 EVERY DAY Medi kacey tablet Branch TRIAMTERENE 2020-0 Yes [id number] TAKE 2 [facility] -HYDROCHLOR 9-08 TABLETS BY it y of OTHIAZID 00:00: MOUTH [place] 37.5-25 mg 00 EVERY DAY Medi kacey tablet Branch TRIAMTERENE 2020-0 Yes [id number] TAKE 2 [facility] -HYDROCHLOR 9-08 TABLETS BY it y of OTHIAZID 00:00: MOUTH [place] 37.5-25 mg 00 EVERY DAY Medi kacey tablet Branch TRIAMTERENE 2020-0 Yes [id number] TAKE 2 [facility] -HYDROCHLOR 9-08 TABLETS BY it y of OTHIAZID 00:00: MOUTH [place] 37.5-25 mg 00 EVERY DAY Medi kacey tablet Branch TRIAMTERENE 2020-0 Yes [id number] TAKE 2 [facility] -HYDROCHLOR 9-08 TABLETS BY it y of OTHIAZID 00:00: MOUTH [place] 37.5-25 mg 00 EVERY DAY Medi kacey tablet Branch TRIAMTERENE 2020-0 Yes [id number] TAKE 2 [facility] -HYDROCHLOR 9-08 TABLETS BY it y of OTHIAZID 00:00: MOUTH [place] 37.5-25 mg 00 EVERY DAY Medi kacey tablet Branch TRIAMTERENE 2020-0 Yes [id number] TAKE 2 [facility] -HYDROCHLOR 9-08 TABLETS BY it y of OTHIAZID 00:00: MOUTH [place] 37.5-25 mg 00 EVERY DAY Medi kacey tablet Branch TRIAMTERENE 2020-0 Yes [id number] TAKE 2 [facility] -HYDROCHLOR 9-08 TABLETS BY it y of OTHIAZID 00:00: MOUTH [place] 37.5-25 mg 00 EVERY DAY Medi kacey tablet Branch TRIAMTERENE 2020-0 Yes [id number] TAKE 2 [facility] -HYDROCHLOR 9-08 TABLETS BY it y of OTHIAZID 00:00: MOUTH [place] 37.5-25 mg 00 EVERY DAY Medi kacey tablet Branch TRIAMTERENE 2020-0 Yes [id number] TAKE 2 [facility] -HYDROCHLOR 9-08 TABLETS BY it y of OTHIAZID 00:00: MOUTH [place] 37.5-25 mg 00 EVERY DAY Medi kacey tablet Branch TRIAMTERENE 2020-0 Yes [id number] TAKE 2 [facility] -HYDROCHLOR 9-08 TABLETS BY it y of OTHIAZID 00:00: MOUTH [place] 37.5-25 mg 00 EVERY DAY Medi kacey tablet Branch TRIAMTERENE 2020-0 Yes [id number] TAKE 2 [facility] -HYDROCHLOR 9-08 TABLETS BY it y of OTHIAZID 00:00: MOUTH [place] 37.5-25 mg 00 EVERY DAY Medi kacey tablet Branch TRIAMTERENE 2020-0 Yes [id number] TAKE 2 [facility] -HYDROCHLOR 9-08 TABLETS BY it y of OTHIAZID 00:00: MOUTH [place] 37.5-25 mg 00 EVERY DAY Medi kacey tablet Branch TRIAMTERENE 2020-0 Yes [id number] TAKE 2 [facility] -HYDROCHLOR 9-08 TABLETS BY it y of OTHIAZID 00:00: MOUTH [place] 37.5-25 mg 00 EVERY DAY Medi kacey tablet Branch TRIAMTERENE 2020-0 Yes [id number] TAKE 2 [facility] -HYDROCHLOR 9-08 TABLETS BY it y of OTHIAZID 00:00: MOUTH [place] 37.5-25 mg 00 EVERY DAY Medi kacey tablet Branch TRIAMTERENE 2020-0 Yes [id number] TAKE 2 [facility] -HYDROCHLOR 9-08 TABLETS BY it y of OTHIAZID 00:00: MOUTH [place] 37.5-25 mg 00 EVERY DAY Medi kacey tablet Branch TRIAMTERENE 2020-0 Yes [id number] TAKE 2 [facility] -HYDROCHLOR 9-08 TABLETS BY it y of OTHIAZID 00:00: MOUTH [place] 37.5-25 mg 00 EVERY DAY Medi kacey tablet Branch TRIAMTERENE 2020-0 Yes [id number] TAKE 2 [facility] -HYDROCHLOR 9-08 TABLETS BY it y of OTHIAZID 00:00: MOUTH [place] 37.5-25 mg 00 EVERY DAY Medi kacey tablet Branch TRIAMTERENE 2020-0 Yes [id number] TAKE 2 [facility] -HYDROCHLOR 9-08 TABLETS BY it y of OTHIAZID 00:00: MOUTH [place] 37.5-25 mg 00 EVERY DAY Medi kacey tablet Branch TRIAMTERENE 2020-0 2020- No [id number] TAKE 2 [facility] -HYDROCHLOR 9-08 12-07 TABLETS BY i ty of OTHIAZID 00:00: 00:00 MOUTH [place] 37.5-25 mg 00 :00 EVERY DAY Medi kacey tablet Branch TRIAMTERENE 2020-0 2020- No [id number] TAKE 2 [facility] -HYDROCHLOR 9-08 12- TABLETS BY i ty of OTHIAZID 00:00: 00:00 MOUTH [place] 37.5-25 mg 00 :00 EVERY DAY Medi kacey tablet Branch Dexlansopra 2020-0 Yes [id number] 60mg Take 1 [facility] zole 8-24 capsule by ity of (DEXILANT) 00:00: mouth [place] 60 mg 00 daily. Medical capsule STOP Branch ESOMEPRAZO LE. ramelteon 8 2020-0 Yes [id number] 8mg Take 1 [facility] mg tablet 8-24 tablet by ity o f 00:00: mouth at [place] 00 bedtime as Medical needed for Branch Insomnia. STOP TRAZODONE. Dexlansopra 2020-0 Yes [id number] 60mg Take 1 [facility] zole 8-24 capsule by ity of (DEXILANT) 00:00: mouth [place] 60 mg 00 daily. Medical capsule STOP Branch ESOMEPRAZO LE. ramelteon 8 2019-0 Yes [id number] 8mg Take 1 [facility] mg tablet 8-24 tablet by ity o f 00:00: mouth at [place] 00 bedtime as Medical needed for Branch Insomnia. STOP TRAZODONE. Dexlansopra 2020-0 Yes [id number] 60mg Take 1 [facility] zole 8-24 capsule by ity of (DEXILANT) 00:00: mouth [place] 60 mg 00 daily. Medical capsule STOP Branch ESOMEPRAZO LE. ramelteon 8 2019-0 Yes [id number] 8mg Take 1 [facility] mg tablet 8-24 tablet by ity o f 00:00: mouth at [place] 00 bedtime as Medical needed for Branch Insomnia. STOP TRAZODONE. Dexlansopra 2020-0 Yes [id number] 60mg Take 1 [facility] zole 8-24 capsule by ity of (DEXILANT) 00:00: mouth [place] 60 mg 00 daily. Medical capsule STOP Branch ESOMEPRAZO LE. ramelteon 8 2019-0 Yes [id number] 8mg Take 1 [facility] mg tablet 8-24 tablet by ity o f 00:00: mouth at [place] 00 bedtime as Medical needed for Branch Insomnia. STOP TRAZODONE. Dexlansopra 2020-0 Yes [id number] 60mg Take 1 [facility] zole 8-24 capsule by ity of (DEXILANT) 00:00: mouth [place] 60 mg 00 daily. Medical capsule STOP Branch ESOMEPRAZO LE. ramelteon 8 2020-0 Yes [id number] 8mg Take 1 [facility] mg tablet 8-24 tablet by ity o f 00:00: mouth at [place] 00 bedtime as Medical needed for Branch Insomnia. STOP TRAZODONE. Dexlansopra 2020-0 Yes [id number] 60mg Take 1 [facility] zole 8-24 capsule by ity of (DEXILANT) 00:00: mouth [place] 60 mg 00 daily. Medical capsule STOP Branch ESOMEPRAZO LE. Dexlansopra 2020-0 Yes [id number] 60mg Take 1 [facility] zole 8-24 capsule by ity of (DEXILANT) 00:00: mouth [place] 60 mg 00 daily. Medical capsule STOP Branch ESOMEPRAZO LE. Dexlansopra 2020-0 Yes [id number] 60mg Take 1 [facility] zole 8-24 capsule by ity of (DEXILANT) 00:00: mouth [place] 60 mg 00 daily. Medical capsule STOP Branch ESOMEPRAZO LE. Dexlansopra 2020-0 Yes [id number] 60mg Take 1 [facility] zole 8-24 capsule by ity of (DEXILANT) 00:00: mouth [place] 60 mg 00 daily. Medical capsule STOP Branch ESOMEPRAZO LE. Dexlansopra 2020-0 Yes [id number] 60mg Take 1 [facility] zole 8-24 capsule by ity of (DEXILANT) 00:00: mouth [place] 60 mg 00 daily. Medical capsule STOP Branch ESOMEPRAZO LE. Dexlansopra 2020-0 Yes [id number] 60mg Take 1 [facility] zole 8-24 capsule by ity of (DEXILANT) 00:00: mouth [place] 60 mg 00 daily. Medical capsule STOP Branch ESOMEPRAZO LE. Dexlansopra 2020-0 Yes [id number] 60mg Take 1 [facility] zole 8-24 capsule by ity of (DEXILANT) 00:00: mouth [place] 60 mg 00 daily. Medical capsule STOP Branch ESOMEPRAZO LE. Dexlansopra 2020-0 Yes [id number] 60mg Take 1 [facility] zole 8-24 capsule by ity of (DEXILANT) 00:00: mouth [place] 60 mg 00 daily. Medical capsule STOP Branch ESOMEPRAZO LE. Dexlansopra 2020-0 Yes [id number] 60mg Take 1 [facility] zole 8-24 capsule by ity of (DEXILANT) 00:00: mouth [place] 60 mg 00 daily. Medical capsule STOP Branch ESOMEPRAZO LE. Dexlansopra 2020-0 Yes [id number] 60mg Take 1 [facility] zole 8-24 capsule by ity of (DEXILANT) 00:00: mouth [place] 60 mg 00 daily. Medical capsule STOP Branch ESOMEPRAZO LE. Dexlansopra 2020-0 Yes [id number] 60mg Take 1 [facility] zole 8-24 capsule by ity of (DEXILANT) 00:00: mouth [place] 60 mg 00 daily. Medical capsule STOP Branch ESOMEPRAZO LE. Dexlansopra 2020-0 Yes [id number] 60mg Take 1 [facility] zole 8-24 capsule by ity of (DEXILANT) 00:00: mouth [place] 60 mg 00 daily. Medical capsule STOP Branch ESOMEPRAZO LE. Dexlansopra 2020-0 Yes [id number] 60mg Take 1 [facility] zole 8-24 capsule by ity of (DEXILANT) 00:00: mouth [place] 60 mg 00 daily. Medical capsule STOP Branch ESOMEPRAZO LE. Dexlansopra 2020-0 Yes [id number] 60mg Take 1 [facility] zole 8-24 capsule by ity of (DEXILANT) 00:00: mouth [place] 60 mg 00 daily. Medical capsule STOP Branch ESOMEPRAZO LE. Dexlansopra 2020-0 Yes [id number] 60mg Take 1 [facility] zole 8-24 capsule by ity of (DEXILANT) 00:00: mouth [place] 60 mg 00 daily. Medical capsule STOP Branch ESOMEPRAZO LE. Dexlansopra 2020-0 Yes [id number] 60mg Take 1 [facility] zole 8-24 capsule by ity of (DEXILANT) 00:00: mouth [place] 60 mg 00 daily. Medical capsule STOP Branch ESOMEPRAZO LE. Dexlansopra 2020-0 Yes [id number] 60mg Take 1 [facility] zole 8-24 capsule by ity of (DEXILANT) 00:00: mouth [place] 60 mg 00 daily. Medical capsule STOP Branch ESOMEPRAZO LE. Dexlansopra 2020-0 Yes [id number] 60mg Take 1 [facility] zole 8-24 capsule by ity of (DEXILANT) 00:00: mouth [place] 60 mg 00 daily. Medical capsule STOP Branch ESOMEPRAZO LE. Dexlansopra 2020-0 Yes [id number] 60mg Take 1 [facility] zole 8-24 capsule by ity of (DEXILANT) 00:00: mouth [place] 60 mg 00 daily. Medical capsule STOP Branch ESOMEPRAZO LE. Dexlansopra 2020-0 Yes [id number] 60mg Take 1 [facility] zole 8-24 capsule by ity of (DEXILANT) 00:00: mouth [place] 60 mg 00 daily. Medical capsule STOP Branch ESOMEPRAZO LE. Dexlansopra 2020-0 Yes [id number] 60mg Take 1 [facility] zole 8-24 capsule by ity of (DEXILANT) 00:00: mouth [place] 60 mg 00 daily. Medical capsule STOP Branch ESOMEPRAZO LE. Dexlansopra 2020-0 Yes [id number] 60mg Take 1 [facility] zole 8-24 capsule by ity of (DEXILANT) 00:00: mouth [place] 60 mg 00 daily. Medical capsule STOP Branch ESOMEPRAZO LE. Dexlansopra 2020-0 Yes [id number] 60mg Take 1 [facility] zole 8-24 capsule by ity of (DEXILANT) 00:00: mouth [place] 60 mg 00 daily. Medical capsule STOP Branch ESOMEPRAZO LE. Dexlansopra 2020-0 Yes [id number] 60mg Take 1 [facility] zole 8-24 capsule by ity of (DEXILANT) 00:00: mouth [place] 60 mg 00 daily. Medical capsule STOP Branch ESOMEPRAZO LE. Dexlansopra 2020-0 Yes [id number] 60mg Take 1 [facility] zole 8-24 capsule by ity of (DEXILANT) 00:00: mouth [place] 60 mg 00 daily. Medical capsule STOP Branch ESOMEPRAZO LE. Dexlansopra 2020-0 Yes [id number] 60mg Take 1 [facility] zole 8-24 capsule by ity of (DEXILANT) 00:00: mouth [place] 60 mg 00 daily. Medical capsule STOP Branch ESOMEPRAZO LE. Dexlansopra 2020-0 Yes [id number] 60mg Take 1 [facility] zole 8-24 capsule by ity of (DEXILANT) 00:00: mouth [place] 60 mg 00 daily. Medical capsule STOP Branch ESOMEPRAZO LE. Dexlansopra 2020-0 Yes [id number] 60mg Take 1 [facility] zole 8-24 capsule by ity of (DEXILANT) 00:00: mouth [place] 60 mg 00 daily. Medical capsule STOP Branch ESOMEPRAZO LE. Dexlansopra 2020-0 Yes [id number] 60mg Take 1 [facility] zole 8-24 capsule by ity of (DEXILANT) 00:00: mouth [place] 60 mg 00 daily. Medical capsule STOP Branch ESOMEPRAZO LE. Dexlansopra 2020-0 Yes [id number] 60mg Take 1 [facility] zole 8-24 capsule by ity of (DEXILANT) 00:00: mouth [place] 60 mg 00 daily. Medical capsule STOP Branch ESOMEPRAZO LE. Dexlansopra 2020-0 Yes [id number] 60mg Take 1 [facility] zole 8-24 capsule by ity of (DEXILANT) 00:00: mouth [place] 60 mg 00 daily. Medical capsule STOP Branch ESOMEPRAZO LE. Dexlansopra 2020-0 Yes [id number] 60mg Take 1 [facility] zole 8-24 capsule by ity of (DEXILANT) 00:00: mouth [place] 60 mg 00 daily. Medical capsule STOP Branch ESOMEPRAZO LE. Dexlansopra 2020-0 Yes [id number] 60mg Take 1 [facility] zole 8-24 capsule by ity of (DEXILANT) 00:00: mouth [place] 60 mg 00 daily. Medical capsule STOP Branch ESOMEPRAZO LE. Dexlansopra 2020-0 Yes [id number] 60mg Take 1 [facility] zole 8-24 capsule by ity of (DEXILANT) 00:00: mouth [place] 60 mg 00 daily. Medical capsule STOP Branch ESOMEPRAZO LE. Dexlansopra 2020-0 Yes [id number] 60mg Take 1 [facility] zole 8-24 capsule by ity of (DEXILANT) 00:00: mouth [place] 60 mg 00 daily. Medical capsule STOP Branch ESOMEPRAZO LE. Dexlansopra 2020-0 Yes [id number] 60mg Take 1 [facility] zole 8-24 capsule by ity of (DEXILANT) 00:00: mouth [place] 60 mg 00 daily. Medical capsule STOP Branch ESOMEPRAZO LE. Dexlansopra 2020-0 Yes [id number] 60mg Take 1 [facility] zole 8-24 capsule by ity of (DEXILANT) 00:00: mouth [place] 60 mg 00 daily. Medical capsule STOP Branch ESOMEPRAZO LE. Dexlansopra 2020-0 Yes [id number] 60mg Take 1 [facility] zole 8-24 capsule by ity of (DEXILANT) 00:00: mouth [place] 60 mg 00 daily. Medical capsule STOP Branch ESOMEPRAZO LE. Dexlansopra 2020-0 Yes [id number] 60mg Take 1 [facility] zole 8-24 capsule by ity of (DEXILANT) 00:00: mouth [place] 60 mg 00 daily. Medical capsule STOP Branch ESOMEPRAZO LE. Dexlansopra 2020-0 Yes [id number] 60mg Take 1 [facility] zole 8-24 capsule by ity of (DEXILANT) 00:00: mouth [place] 60 mg 00 daily. Medical capsule STOP Branch ESOMEPRAZO LE. Dexlansopra 2020-0 Yes [id number] 60mg Take 1 [facility] zole 8-24 capsule by ity of (DEXILANT) 00:00: mouth [place] 60 mg 00 daily. Medical capsule STOP Branch ESOMEPRAZO LE. Dexlansopra 2020-0 Yes [id number] 60mg Take 1 [facility] zole 8-24 capsule by ity of (DEXILANT) 00:00: mouth [place] 60 mg 00 daily. Medical capsule STOP Branch ESOMEPRAZO LE. Dexlansopra 2020-0 Yes [id number] 60mg Take 1 [facility] zole 8-24 capsule by ity of (DEXILANT) 00:00: mouth [place] 60 mg 00 daily. Medical capsule STOP Branch ESOMEPRAZO LE. Dexlansopra 2020-0 Yes [id number] 60mg Take 1 [facility] zole 8-24 capsule by ity of (DEXILANT) 00:00: mouth [place] 60 mg 00 daily. Medical capsule STOP Branch ESOMEPRAZO LE. Dexlansopra 2020-0 Yes [id number] 60mg Take 1 [facility] zole 8-24 capsule by ity of (DEXILANT) 00:00: mouth [place] 60 mg 00 daily. Medical capsule STOP Branch ESOMEPRAZO LE. Dexlansopra 2020-0 Yes [id number] 60mg Take 1 [facility] zole 8-24 capsule by ity of (DEXILANT) 00:00: mouth [place] 60 mg 00 daily. Medical capsule STOP Branch ESOMEPRAZO LE. Dexlansopra 2020-0 Yes [id number] 60mg Take 1 [facility] zole 8-24 capsule by ity of (DEXILANT) 00:00: mouth [place] 60 mg 00 daily. Medical capsule STOP Branch ESOMEPRAZO LE. Dexlansopra 2020-0 2020- No [id number] 60mg Take 1 [facility] zole 8-24 12-22 capsule by ity of (DEXILANT) 00:00: 00:00 mouth [place] 60 mg 00 :00 daily. Medical capsule STOP Branch ESOMEPRAZO LE. ramelteon 8 2020-0 2020- No [id number] 8mg Take 1 [facility] mg tablet 05-10 09-16 tablet by ity of 00:00: 00:00 mouth at [place] 00 :00 bedtime as Medical needed for Branch Insomnia. STOP TRAZODONE. IBANDRONATE 2020-0 Yes [id number] 150mg TAKE 1 [facility] 150 mg 7-31 TABLET BY ity of tablet 00:00: MOUTH ONCE [place] 00 EVERY Medical MONTH. Branch IBANDRONATE 2020-0 Yes [id number] 150mg TAKE 1 [facility] 150 mg 7-31 TABLET BY ity of tablet 00:00: MOUTH ONCE [place] 00 EVERY Medical MONTH. Branch IBANDRONATE 2020-0 Yes [id number] 150mg TAKE 1 [facility] 150 mg 7-31 TABLET BY ity of tablet 00:00: MOUTH ONCE [place] 00 EVERY Medical MONTH. Branch IBANDRONATE 2020-0 Yes [id number] 150mg TAKE 1 [facility] 150 mg 7-31 TABLET BY ity of tablet 00:00: MOUTH ONCE [place] 00 EVERY Medical MONTH. Branch IBANDRONATE 2020-0 Yes [id number] 150mg TAKE 1 [facility] 150 mg 7-31 TABLET BY ity of tablet 00:00: MOUTH ONCE [place] 00 EVERY Medical MONTH. Branch IBANDRONATE 2020-0 Yes [id number] 150mg TAKE 1 [facility] 150 mg 7-31 TABLET BY ity of tablet 00:00: MOUTH ONCE [place] 00 EVERY Medical MONTH. Branch IBANDRONATE 2020-0 Yes [id number] 150mg TAKE 1 [facility] 150 mg 7-31 TABLET BY ity of tablet 00:00: MOUTH ONCE [place] 00 EVERY Medical MONTH. Branch IBANDRONATE 2020-0 Yes [id number] 150mg TAKE 1 [facility] 150 mg 7-31 TABLET BY ity of tablet 00:00: MOUTH ONCE [place] 00 EVERY Medical MONTH. Branch IBANDRONATE 2020-0 Yes [id number] 150mg TAKE 1 [facility] 150 mg 7-31 TABLET BY ity of tablet 00:00: MOUTH ONCE [place] 00 EVERY Medical MONTH. Branch IBANDRONATE 2020-0 Yes [id number] 150mg TAKE 1 [facility] 150 mg 7-31 TABLET BY ity of tablet 00:00: MOUTH ONCE [place] 00 EVERY Medical MONTH. Branch IBANDRONATE 2020-0 Yes [id number] 150mg TAKE 1 [facility] 150 mg 7-31 TABLET BY ity of tablet 00:00: MOUTH ONCE [place] 00 EVERY Medical MONTH. Branch IBANDRONATE 2020-0 Yes [id number] 150mg TAKE 1 [facility] 150 mg 7-31 TABLET BY ity of tablet 00:00: MOUTH ONCE [place] 00 EVERY Medical MONTH. Branch IBANDRONATE 2020-0 Yes [id number] 150mg TAKE 1 [facility] 150 mg 7-31 TABLET BY ity of tablet 00:00: MOUTH ONCE [place] 00 EVERY Medical MONTH. Branch IBANDRONATE 2020-0 Yes [id number] 150mg TAKE 1 [facility] 150 mg 7-31 TABLET BY ity of tablet 00:00: MOUTH ONCE [place] 00 EVERY Medical MONTH. Branch IBANDRONATE 2020-0 Yes [id number] 150mg TAKE 1 [facility] 150 mg 7-31 TABLET BY ity of tablet 00:00: MOUTH ONCE [place] 00 EVERY Medical MONTH. Branch IBANDRONATE 2020-0 Yes [id number] 150mg TAKE 1 [facility] 150 mg 7-31 TABLET BY ity of tablet 00:00: MOUTH ONCE [place] 00 EVERY Medical MONTH. Branch IBANDRONATE 2020-0 Yes [id number] 150mg TAKE 1 [facility] 150 mg 7-31 TABLET BY ity of tablet 00:00: MOUTH ONCE [place] 00 EVERY Medical MONTH. Branch IBANDRONATE 2020-0 Yes [id number] 150mg TAKE 1 [facility] 150 mg 7-31 TABLET BY ity of tablet 00:00: MOUTH ONCE [place] 00 EVERY Medical MONTH. Branch IBANDRONATE 2020-0 Yes [id number] 150mg TAKE 1 [facility] 150 mg 7-31 TABLET BY ity of tablet 00:00: MOUTH ONCE [place] 00 EVERY Medical MONTH. Branch IBANDRONATE 2020-0 Yes [id number] 150mg TAKE 1 [facility] 150 mg 7-31 TABLET BY ity of tablet 00:00: MOUTH ONCE [place] 00 EVERY Medical MONTH. Branch IBANDRONATE 2020-0 Yes [id number] 150mg TAKE 1 [facility] 150 mg 7-31 TABLET BY ity of tablet 00:00: MOUTH ONCE [place] 00 EVERY Medical MONTH. Branch IBANDRONATE 2020-0 Yes [id number] 150mg TAKE 1 [facility] 150 mg 7-31 TABLET BY ity of tablet 00:00: MOUTH ONCE [place] 00 EVERY Medical MONTH. Branch IBANDRONATE 2020-0 Yes [id number] 150mg TAKE 1 [facility] 150 mg 7-31 TABLET BY ity of tablet 00:00: MOUTH ONCE [place] EVERY Medical MONTH. Branch IBANDRONATE 2020-0 Yes [id number] 150mg TAKE 1 [facility] 150 mg 7-31 TABLET BY ity of tablet 00:00: MOUTH ONCE [place] EVERY Medical MONTH. Branch IBANDRONATE 2020-0 Yes [id number] 150mg TAKE 1 [facility] 150 mg 7-31 TABLET BY ity of tablet 00:00: MOUTH ONCE [place] 00 EVERY Medical MONTH. Branch IBANDRONATE 2020-0 Yes [id number] 150mg TAKE 1 [facility] 150 mg 7-31 TABLET BY ity of tablet 00:00: MOUTH ONCE [place] EVERY Medical MONTH. Branch IBANDRONATE 2020-0 Yes [id number] 150mg TAKE 1 [facility] 150 mg 7-31 TABLET BY ity of tablet 00:00: MOUTH ONCE [place] EVERY Medical MONTH. Branch IBANDRONATE 2020-0 Yes [id number] 150mg TAKE 1 [facility] 150 mg 7-31 TABLET BY ity of tablet 00:00: MOUTH ONCE [place] EVERY Medical MONTH. Branch IBANDRONATE 2020-0 Yes [id number] 150mg TAKE 1 [facility] 150 mg 7-31 TABLET BY ity of tablet 00:00: MOUTH ONCE [place] EVERY Medical MONTH. Branch IBANDRONATE 2020-0 Yes [id number] 150mg TAKE 1 [facility] 150 mg 7-31 TABLET BY ity of tablet 00:00: MOUTH ONCE [place] 00 EVERY Medical MONTH. Branch IBANDRONATE 2020-0 Yes [id number] 150mg TAKE 1 [facility] 150 mg 7-31 TABLET BY ity of tablet 00:00: MOUTH ONCE [place] 00 EVERY Medical MONTH. Branch IBANDRONATE 2020-0 Yes [id number] 150mg TAKE 1 [facility] 150 mg 7-31 TABLET BY ity of tablet 00:00: MOUTH ONCE [place] 00 EVERY Medical MONTH. Branch IBANDRONATE 2020-0 Yes [id number] 150mg TAKE 1 [facility] 150 mg 7-31 TABLET BY ity of tablet 00:00: MOUTH ONCE [place] 00 EVERY Medical MONTH. Branch IBANDRONATE 2020-0 Yes [id number] 150mg TAKE 1 [facility] 150 mg 7-31 TABLET BY ity of tablet 00:00: MOUTH ONCE [place] 00 EVERY Medical MONTH. Branch IBANDRONATE 2020-0 Yes [id number] 150mg TAKE 1 [facility] 150 mg 7-31 TABLET BY ity of tablet 00:00: MOUTH ONCE [place] 00 EVERY Medical MONTH. Branch IBANDRONATE 2020-0 Yes [id number] 150mg TAKE 1 [facility] 150 mg 7-31 TABLET BY ity of tablet 00:00: MOUTH ONCE [place] 00 EVERY Medical MONTH. Branch IBANDRONATE 2020-0 Yes [id number] 150mg TAKE 1 [facility] 150 mg 7-31 TABLET BY ity of tablet 00:00: MOUTH ONCE [place] 00 EVERY Medical MONTH. Branch IBANDRONATE 2020-0 Yes [id number] 150mg TAKE 1 [facility] 150 mg 7-31 TABLET BY ity of tablet 00:00: MOUTH ONCE [place] 00 EVERY Medical MONTH. Branch IBANDRONATE 2020-0 Yes [id number] 150mg TAKE 1 [facility] 150 mg 7-31 TABLET BY ity of tablet 00:00: MOUTH ONCE [place] 00 EVERY Medical MONTH. Branch IBANDRONATE 2020-0 Yes [id number] 150mg TAKE 1 [facility] 150 mg 7-31 TABLET BY ity of tablet 00:00: MOUTH ONCE [place] 00 EVERY Medical MONTH. Branch IBANDRONATE 2020-0 Yes [id number] 150mg TAKE 1 [facility] 150 mg 7-31 TABLET BY ity of tablet 00:00: MOUTH ONCE [place] 00 EVERY Medical MONTH. Branch IBANDRONATE 2020-0 Yes [id number] 150mg TAKE 1 [facility] 150 mg 7-31 TABLET BY ity of tablet 00:00: MOUTH ONCE [place] 00 EVERY Medical MONTH. Branch IBANDRONATE 2020-0 Yes [id number] 150mg TAKE 1 [facility] 150 mg 7-31 TABLET BY ity of tablet 00:00: MOUTH ONCE [place] 00 EVERY Medical MONTH. Branch IBANDRONATE 2020-0 Yes [id number] 150mg TAKE 1 [facility] 150 mg 7-31 TABLET BY ity of tablet 00:00: MOUTH ONCE [place] 00 EVERY Medical MONTH. Branch IBANDRONATE 2020-0 Yes [id number] 150mg TAKE 1 [facility] 150 mg 7-31 TABLET BY ity of tablet 00:00: MOUTH ONCE [place] 00 EVERY Medical MONTH. Branch IBANDRONATE 2020-0 Yes [id number] 150mg TAKE 1 [facility] 150 mg 7-31 TABLET BY ity of tablet 00:00: MOUTH ONCE [place] 00 EVERY Medical MONTH. Branch IBANDRONATE 2020-0 Yes [id number] 150mg TAKE 1 [facility] 150 mg 7-31 TABLET BY ity of tablet 00:00: MOUTH ONCE [place] 00 EVERY Medical MONTH. Branch IBANDRONATE 2020-0 Yes [id number] 150mg TAKE 1 [facility] 150 mg 7-31 TABLET BY [facility] tablet 00:00: MOUTH ONCE [place] EVERY Medical MONTH. Branch IBANDRONATE 2020-0 Yes [id number] 150mg TAKE 1 [facility] 150 mg 7-31 TABLET BY [facility] tablet 00:00: MOUTH ONCE [place] EVERY Medical MONTH. Branch IBANDRONATE 2020-0 Yes [id number] 150mg TAKE 1 [facility] 150 mg 7-31 TABLET BY [facility] tablet 00:00: MOUTH ONCE [place] 00 EVERY Medical MONTH. Branch IBANDRONATE 2020-0 Yes [id number] 150mg TAKE 1 [facility] 150 mg 7-31 TABLET BY [facility] tablet 00:00: MOUTH ONCE [place] EVERY Medical MONTH. Branch IBANDRONATE 2020-0 Yes [id number] 150mg TAKE 1 [facility] 150 mg 7-31 TABLET BY [facility] tablet 00:00: MOUTH ONCE [place] EVERY Medical MONTH. Branch IBANDRONATE 2020-0 Yes [id number] 150mg TAKE 1 [facility] 150 mg 7-31 TABLET BY [facility] tablet 00:00: MOUTH ONCE [place] EVERY Medical MONTH. Branch IBANDRONATE 2020-0 Yes [id number] 150mg TAKE 1 [facility] 150 mg 7-31 TABLET BY [facility] tablet 00:00: MOUTH ONCE [place] EVERY Medical MONTH. Branch IBANDRONATE 2020-0 Yes [id number] 150mg TAKE 1 [facility] 150 mg 7-31 TABLET BY [facility] tablet 00:00: MOUTH ONCE [place] 00 EVERY Medical MONTH. Branch IBANDRONATE 2020-0 Yes [id number] 150mg TAKE 1 [facility] 150 mg 7-31 TABLET BY [facility] tablet 00:00: MOUTH ONCE [place] 00 EVERY Medical MONTH. Branch IBANDRONATE 2020-0 Yes [id number] 150mg TAKE 1 [facility] 150 mg 7-31 TABLET BY [facility] tablet 00:00: MOUTH ONCE [place] 00 EVERY Medical MONTH. Branch IBANDRONATE 2020-0 Yes [id number] 150mg TAKE 1 [facility] 150 mg 7-31 TABLET BY [facility] tablet 00:00: MOUTH ONCE [place] 00 EVERY Medical MONTH. Branch IBANDRONATE 2020-0 Yes [id number] 150mg TAKE 1 [facility] 150 mg 7-31 TABLET BY [facility] tablet 00:00: MOUTH ONCE [place] 00 EVERY Medical MONTH. Branch IBANDRONATE 2020-0 Yes [id number] 150mg TAKE 1 [facility] 150 mg 7-31 TABLET BY [facility] tablet 00:00: MOUTH ONCE [place] 00 EVERY Medical MONTH. Branch IBANDRONATE 2020-0 Yes [id number] 150mg TAKE 1 [facility] 150 mg 7-31 TABLET BY [facility] tablet 00:00: MOUTH ONCE [place] 00 EVERY Medical MONTH. Branch IBANDRONATE 2020-0 Yes [id number] 150mg TAKE 1 [facility] 150 mg 7-31 TABLET BY [facility] tablet 00:00: MOUTH ONCE [place] 00 EVERY Medical MONTH. Branch IBANDRONATE 2020-0 Yes [id number] 150mg TAKE 1 [facility] 150 mg 7-31 TABLET BY [facility] tablet 00:00: MOUTH ONCE [place] 00 EVERY Medical MONTH. Branch IBANDRONATE 2020-0 Yes [id number] 150mg TAKE 1 [facility] 150 mg 7-31 TABLET BY [facility] tablet 00:00: MOUTH ONCE [place] 00 EVERY Medical MONTH. Branch IBANDRONATE 2020-0 Yes [id number] 150mg TAKE 1 [facility] 150 mg 7-31 TABLET BY [facility] tablet 00:00: MOUTH ONCE [place] 00 EVERY Medical MONTH. Branch IBANDRONATE 2020-0 Yes [id number] 150mg TAKE 1 [facility] 150 mg 7-31 TABLET BY [facility] tablet 00:00: MOUTH ONCE [place] 00 EVERY Medical MONTH. Branch IBANDRONATE 2020-0 Yes [id number] 150mg TAKE 1 [facility] 150 mg 7-31 TABLET BY [facility] tablet 00:00: MOUTH ONCE [place] 00 EVERY Medical MONTH. Branch IBANDRONATE 2020-0 Yes [id number] 150mg TAKE 1 [facility] 150 mg 7-31 TABLET BY [facility] tablet 00:00: MOUTH ONCE [place] 00 EVERY Medical MONTH. Branch IBANDRONATE 2020-0 Yes [id number] 150mg TAKE 1 [facility] 150 mg 7-31 TABLET BY [facility] tablet 00:00: MOUTH ONCE [place] 00 EVERY Medical MONTH. Branch IBANDRONATE 2020-0 Yes [id number] 150mg TAKE 1 [facility] 150 mg 7-31 TABLET BY [facility] tablet 00:00: MOUTH ONCE [place] 00 EVERY Medical MONTH. Branch IBANDRONATE 2020-0 Yes [id number] 150mg TAKE 1 [facility] 150 mg 7-31 TABLET BY [facility] tablet 00:00: MOUTH ONCE [place] 00 EVERY Medical MONTH. Branch IBANDRONATE 2020-0 Yes [id number] 150mg TAKE 1 [facility] 150 mg 7-31 TABLET BY [facility] tablet 00:00: MOUTH ONCE [place] 00 EVERY Medical MONTH. Branch IBANDRONATE 2020-0 Yes [id number] 150mg TAKE 1 [facility] 150 mg 7-31 TABLET BY [facility] tablet 00:00: MOUTH ONCE [place] EVERY Medical MONTH. Branch IBANDRONATE 2020-0 Yes [id number] 150mg TAKE 1 [facility] 150 mg 7-31 TABLET BY [facility] tablet 00:00: MOUTH ONCE [place] EVERY Medical MONTH. Branch IBANDRONATE 2020-0 Yes [id number] 150mg TAKE 1 [facility] 150 mg 7-31 TABLET BY [facility] tablet 00:00: MOUTH ONCE [place] 00 EVERY Medical MONTH. Branch IBANDRONATE 2020-0 Yes [id number] 150mg TAKE 1 [facility] 150 mg 7-31 TABLET BY [facility] tablet 00:00: MOUTH ONCE [place] EVERY Medical MONTH. Branch IBANDRONATE 2020-0 Yes [id number] 150mg TAKE 1 [facility] 150 mg 7-31 TABLET BY [facility] tablet 00:00: MOUTH ONCE [place] EVERY Medical MONTH. Branch IBANDRONATE 2020-0 Yes [id number] 150mg TAKE 1 [facility] 150 mg 7-31 TABLET BY [facility] tablet 00:00: MOUTH ONCE [place] EVERY Medical MONTH. Branch IBANDRONATE 2020-0 Yes [id number] 150mg TAKE 1 [facility] 150 mg 7-31 TABLET BY [facility] tablet 00:00: MOUTH ONCE [place] EVERY Medical MONTH. Branch IBANDRONATE 2020-0 Yes [id number] 150mg TAKE 1 [facility] 150 mg 7-31 TABLET BY [facility] tablet 00:00: MOUTH ONCE [place] 00 EVERY Medical MONTH. Branch IBANDRONATE 2020-0 Yes [id number] 150mg TAKE 1 [facility] 150 mg 7-31 TABLET BY [facility] tablet 00:00: MOUTH ONCE [place] 00 EVERY Medical MONTH. Branch IBANDRONATE 2020-0 Yes [id number] 150mg TAKE 1 [facility] 150 mg 7-31 TABLET BY [facility] tablet 00:00: MOUTH ONCE [place] 00 EVERY Medical MONTH. Branch IBANDRONATE 2020-0 Yes [id number] 150mg TAKE 1 [facility] 150 mg 7-31 TABLET BY [facility] tablet 00:00: MOUTH ONCE [place] 00 EVERY Medical MONTH. Branch IBANDRONATE 2020-0 Yes [id number] 150mg TAKE 1 [facility] 150 mg 7-31 TABLET BY [facility] tablet 00:00: MOUTH ONCE [place] 00 EVERY Medical MONTH. Branch IBANDRONATE 2020-0 Yes [id number] 150mg TAKE 1 [facility] 150 mg 7-31 TABLET BY [facility] tablet 00:00: MOUTH ONCE [place] 00 EVERY Medical MONTH. Branch IBANDRONATE 2020-0 Yes [id number] 150mg TAKE 1 [facility] 150 mg 7-31 TABLET BY [facility] tablet 00:00: MOUTH ONCE [place] 00 EVERY Medical MONTH. Branch IBANDRONATE 2020-0 Yes [id number] 150mg TAKE 1 [facility] 150 mg 7-31 TABLET BY [facility] tablet 00:00: MOUTH ONCE [place] 00 EVERY Medical MONTH. Branch IBANDRONATE 2020-0 Yes [id number] 150mg TAKE 1 [facility] 150 mg 7-31 TABLET BY [facility] tablet 00:00: MOUTH ONCE [place] 00 EVERY Medical MONTH. Branch IBANDRONATE 2020-0 Yes [id number] 150mg TAKE 1 [facility] 150 mg 7-31 TABLET BY [facility] tablet 00:00: MOUTH ONCE [place] 00 EVERY Medical MONTH. Branch IBANDRONATE 2020-0 Yes [id number] 150mg TAKE 1 [facility] 150 mg 7-31 TABLET BY [facility] tablet 00:00: MOUTH ONCE [place] 00 EVERY Medical MONTH. Branch IBANDRONATE 2020-0 Yes [id number] 150mg TAKE 1 [facility] 150 mg 7-31 TABLET BY [facility] tablet 00:00: MOUTH ONCE [place] 00 EVERY Medical MONTH. Branch IBANDRONATE 2020-0 Yes [id number] 150mg TAKE 1 [facility] 150 mg 7-31 TABLET BY [facility] tablet 00:00: MOUTH ONCE [place] 00 EVERY Medical MONTH. Branch IBANDRONATE 2020-0 Yes [id number] 150mg TAKE 1 [facility] 150 mg 7-31 TABLET BY [facility] tablet 00:00: MOUTH ONCE [place] 00 EVERY Medical MONTH. Branch ESOMEPRAZOL 2020-0 Yes [id number] TAKE 1 [facility] E 40 mg 7-28 CAPSULE BY [facility] of capsule 00:00: MOUTH [place] 00 DAILY WITH Medical BREAKFAST. Branch BRAND MEDICALLY NECESSARY. ESOMEPRAZOL 2020-0 Yes [id number] TAKE 1 [facility] E 40 mg 7-28 CAPSULE BY [facility] of capsule 00:00: MOUTH [place] 00 DAILY WITH Medical BREAKFAST. Branch BRAND MEDICALLY NECESSARY. ESOMEPRAZOL 2020-0 2020- No [id number] TAKE 1 [facility] E 40 mg 7-28 08-24 CAPSULE BY ity o f capsule 00:00: 00:00 MOUTH [place] 00 :00 DAILY WITH Medical BREAKFAST. Branch BRAND MEDICALLY NECESSARY. ESOMEPRAZOL 2020-0 2020- No [id number] TAKE 1 [facility] E 40 mg 7-28 08-24 CAPSULE BY ity o f capsule 00:00: 00:00 MOUTH [place] 00 :00 DAILY WITH Medical BREAKFAST. Branch BRAND MEDICALLY NECESSARY. ESOMEPRAZOL 2019-0 2020- No [id number] TAKE 1 [facility] E 40 mg 7-28 08-24 CAPSULE BY ity o f capsule 00:00: 00:00 MOUTH [place] 00 :00 DAILY WITH Medical BREAKFAST. Branch BRAND MEDICALLY NECESSARY. TRIAMTERENE 2020-0 Yes [id number] TAKE 2 [facility] -HYDROCHLOR 6-03 TABLETS BY it y of OTHIAZID 00:00: MOUTH [place] 37.5-25 mg 00 DAILY. Medical tablet Branch TRIAMTERENE 2020-0 Yes [id number] TAKE 2 [facility] -HYDROCHLOR 6-03 TABLETS BY it y of OTHIAZID 00:00: MOUTH [place] 37.5-25 mg 00 DAILY. Medical tablet Branch TRIAMTERENE 2020-0 Yes [id number] TAKE 2 [facility] -HYDROCHLOR 6-03 TABLETS BY it y of OTHIAZID 00:00: MOUTH [place] 37.5-25 mg 00 DAILY. Medical tablet Branch TRIAMTERENE 2020-0 Yes [id number] TAKE 2 [facility] -HYDROCHLOR 6-03 TABLETS BY it y of OTHIAZID 00:00: MOUTH [place] 37.5-25 mg 00 DAILY. Medical tablet Branch TRIAMTERENE 2020-0 Yes [id number] TAKE 2 [facility] -HYDROCHLOR 6-03 TABLETS BY it y of OTHIAZID 00:00: MOUTH [place] 37.5-25 mg 00 DAILY. Medical tablet Branch TRIAMTERENE 2020-0 Yes [id number] TAKE 2 [facility] -HYDROCHLOR 6-03 TABLETS BY it y of OTHIAZID 00:00: MOUTH [place] 37.5-25 mg 00 DAILY. Medical tablet Branch TRIAMTERENE 2020-0 Yes [id number] TAKE 2 [facility] -HYDROCHLOR 6-03 TABLETS BY it y of OTHIAZID 00:00: MOUTH [place] 37.5-25 mg 00 DAILY. Medical tablet Branch TRIAMTERENE 2020-0 Yes [id number] TAKE 2 [facility] -HYDROCHLOR 6-03 TABLETS BY it y of OTHIAZID 00:00: MOUTH [place] 37.5-25 mg 00 DAILY. Medical tablet Branch TRIAMTERENE 2020-0 Yes [id number] TAKE 2 [facility] -HYDROCHLOR 6-03 TABLETS BY it y of OTHIAZID 00:00: MOUTH [place] 37.5-25 mg 00 DAILY. Medical tablet Branch TRIAMTERENE 2020-0 Yes [id number] TAKE 2 [facility] -HYDROCHLOR 6-03 TABLETS BY it y of OTHIAZID 00:00: MOUTH [place] 37.5-25 mg 00 DAILY. Medical tablet Branch TRIAMTERENE 2020-0 2020- No [id number] TAKE 2 [facility] -HYDROCHLOR 6-03 09-08 TABLETS BY i ty of OTHIAZID 00:00: 00:00 MOUTH [place] 37.5-25 mg 00 :00 DAILY. Medical tablet Branch TRIAMTERENE 2020-0 2020- No [id number] TAKE 2 [facility] -HYDROCHLOR 6-03 09-08 TABLETS BY i ty of OTHIAZID 00:00: 00:00 MOUTH [place] 37.5-25 mg 00 :00 DAILY. Medical tablet Branch TIZANIDINE 2020-0 Yes [id number] 4mg TAKE 1-2 [facility] 4 mg tablet 5-07 TABLETS BY it y of 00:00: MOUTH [place] 00 EVERY 8 Medical (EIGHT) Branch HOURS NEEDED (MUSCLE PAIN OR SPASM). TIZANIDINE 2020-0 Yes [id number] 4mg TAKE 1-2 [facility] 4 mg tablet 5-07 TABLETS BY it y of 00:00: MOUTH [place] 00 EVERY 8 Medical (EIGHT) Branch HOURS NEEDED (MUSCLE PAIN OR SPASM). TIZANIDINE 2020-0 Yes [id number] 4mg TAKE 1-2 [facility] 4 mg tablet 5-07 TABLETS BY it y of 00:00: MOUTH [place] 00 EVERY 8 Medical (EIGHT) Branch HOURS NEEDED (MUSCLE PAIN OR SPASM). TIZANIDINE 2020-0 Yes [id number] 4mg TAKE 1-2 [facility] 4 mg tablet 5-07 TABLETS BY it y of 00:00: MOUTH [place] 00 EVERY 8 Medical (EIGHT) Branch HOURS NEEDED (MUSCLE PAIN OR SPASM). TIZANIDINE 2020-0 Yes [id number] 4mg TAKE 1-2 [facility] 4 mg tablet 5-07 TABLETS BY it y of 00:00: MOUTH [place] 00 EVERY 8 Medical (EIGHT) Branch HOURS NEEDED (MUSCLE PAIN OR SPASM). TIZANIDINE 2020-0 Yes [id number] 4mg TAKE 1-2 [facility] 4 mg tablet 5-07 TABLETS BY it y of 00:00: MOUTH [place] 00 EVERY 8 Medical (EIGHT) Branch HOURS NEEDED (MUSCLE PAIN OR SPASM). TIZANIDINE 2020-0 Yes [id number] 4mg TAKE 1-2 [facility] 4 mg tablet 5-07 TABLETS BY it y of 00:00: MOUTH [place] 00 EVERY 8 Medical (EIGHT) Branch HOURS NEEDED (MUSCLE PAIN OR SPASM). TIZANIDINE 2020-0 Yes [id number] 4mg TAKE 1-2 [facility] 4 mg tablet 5-07 TABLETS BY it y of 00:00: MOUTH [place] 00 EVERY 8 Medical (EIGHT) Branch HOURS NEEDED (MUSCLE PAIN OR SPASM). TIZANIDINE 2020-0 Yes [id number] 4mg TAKE 1-2 [facility] 4 mg tablet 5-07 TABLETS BY it y of 00:00: MOUTH [place] 00 EVERY 8 Medical (EIGHT) Branch HOURS NEEDED (MUSCLE PAIN OR SPASM). TIZANIDINE 2020-0 Yes [id number] 4mg TAKE 1-2 [facility] 4 mg tablet 5-07 TABLETS BY it y of 00:00: MOUTH [place] 00 EVERY 8 Medical (EIGHT) Branch HOURS NEEDED (MUSCLE PAIN OR SPASM). TIZANIDINE 2020-0 Yes [id number] 4mg TAKE 1-2 [facility] 4 mg tablet 5-07 TABLETS BY it y of 00:00: MOUTH [place] 00 EVERY 8 Medical (EIGHT) Branch HOURS NEEDED (MUSCLE PAIN OR SPASM). TIZANIDINE 2020-0 Yes [id number] 4mg TAKE 1-2 [facility] 4 mg tablet 5-07 TABLETS BY it y of 00:00: MOUTH [place] 00 EVERY 8 Medical (EIGHT) Branch HOURS NEEDED (MUSCLE PAIN OR SPASM). TIZANIDINE 2020-0 Yes [id number] 4mg TAKE 1-2 [facility] 4 mg tablet 5-07 TABLETS BY it y of 00:00: MOUTH [place] 00 EVERY 8 Medical (EIGHT) Branch HOURS NEEDED (MUSCLE PAIN OR SPASM). TIZANIDINE 2020-0 Yes [id number] 4mg TAKE 1-2 [facility] 4 mg tablet 5-07 TABLETS BY it y of 00:00: MOUTH [place] 00 EVERY 8 Medical (EIGHT) Branch HOURS NEEDED (MUSCLE PAIN OR SPASM). TIZANIDINE 2020-0 Yes [id number] 4mg TAKE 1-2 [facility] 4 mg tablet 5-07 TABLETS BY it y of 00:00: MOUTH [place] 00 EVERY 8 Medical (EIGHT) Branch HOURS NEEDED (MUSCLE PAIN OR SPASM). TIZANIDINE 2020-0 Yes [id number] 4mg TAKE 1-2 [facility] 4 mg tablet 5-07 TABLETS BY it y of 00:00: MOUTH [place] 00 EVERY 8 Medical (EIGHT) Branch HOURS NEEDED (MUSCLE PAIN OR SPASM). TIZANIDINE 2020-0 Yes [id number] 4mg TAKE 1-2 [facility] 4 mg tablet 5-07 TABLETS BY it y of 00:00: MOUTH [place] 00 EVERY 8 Medical (EIGHT) Branch HOURS NEEDED (MUSCLE PAIN OR SPASM). TIZANIDINE 2020-0 Yes [id number] 4mg TAKE 1-2 [facility] 4 mg tablet 5-07 TABLETS BY it y of 00:00: MOUTH [place] 00 EVERY 8 Medical (EIGHT) Branch HOURS NEEDED (MUSCLE PAIN OR SPASM). TIZANIDINE 2020-0 Yes [id number] 4mg TAKE 1-2 [facility] 4 mg tablet 5-07 TABLETS BY it y of 00:00: MOUTH [place] 00 EVERY 8 Medical (EIGHT) Branch HOURS NEEDED (MUSCLE PAIN OR SPASM). TIZANIDINE 2020-0 Yes [id number] 4mg TAKE 1-2 [facility] 4 mg tablet 5-07 TABLETS BY it y of 00:00: MOUTH [place] 00 EVERY 8 Medical (EIGHT) Branch HOURS NEEDED (MUSCLE PAIN OR SPASM). TIZANIDINE 2020-0 Yes [id number] 4mg TAKE 1-2 [facility] 4 mg tablet 5-07 TABLETS BY it y of 00:00: MOUTH [place] 00 EVERY 8 Medical (EIGHT) Branch HOURS NEEDED (MUSCLE PAIN OR SPASM). TIZANIDINE 2020-0 Yes [id number] 4mg TAKE 1-2 [facility] 4 mg tablet 5-07 TABLETS BY it y of 00:00: MOUTH [place] 00 EVERY 8 Medical (EIGHT) Branch HOURS NEEDED (MUSCLE PAIN OR SPASM). TIZANIDINE 2020-0 Yes [id number] 4mg TAKE 1-2 [facility] 4 mg tablet 5-07 TABLETS BY it y of 00:00: MOUTH [place] 00 EVERY 8 Medical (EIGHT) Branch HOURS NEEDED (MUSCLE PAIN OR SPASM). TIZANIDINE 2020-0 Yes [id number] 4mg TAKE 1-2 [facility] 4 mg tablet 5-07 TABLETS BY it y of 00:00: MOUTH [place] 00 EVERY 8 Medical (EIGHT) Branch HOURS NEEDED (MUSCLE PAIN OR SPASM). TIZANIDINE 2020-0 Yes [id number] 4mg TAKE 1-2 [facility] 4 mg tablet 5-07 TABLETS BY it y of 00:00: MOUTH [place] 00 EVERY 8 Medical (EIGHT) Branch HOURS NEEDED (MUSCLE PAIN OR SPASM). TIZANIDINE 2020-0 Yes [id number] 4mg TAKE 1-2 [facility] 4 mg tablet 5-07 TABLETS BY it y of 00:00: MOUTH [place] 00 EVERY 8 Medical (EIGHT) Branch HOURS NEEDED (MUSCLE PAIN OR SPASM). TIZANIDINE 2020-0 Yes [id number] 4mg TAKE 1-2 [facility] 4 mg tablet 5-07 TABLETS BY it y of 00:00: MOUTH [place] 00 EVERY 8 Medical (EIGHT) Branch HOURS NEEDED (MUSCLE PAIN OR SPASM). TIZANIDINE 2020-0 Yes [id number] 4mg TAKE 1-2 [facility] 4 mg tablet 5-07 TABLETS BY it y of 00:00: MOUTH [place] 00 EVERY 8 Medical (EIGHT) Branch HOURS NEEDED (MUSCLE PAIN OR SPASM). TIZANIDINE 2020-0 Yes [id number] 4mg TAKE 1-2 [facility] 4 mg tablet 5-07 TABLETS BY it y of 00:00: MOUTH [place] 00 EVERY 8 Medical (EIGHT) Branch HOURS NEEDED (MUSCLE PAIN OR SPASM). TIZANIDINE 2020-0 Yes [id number] 4mg TAKE 1-2 [facility] 4 mg tablet 5-07 TABLETS BY it y of 00:00: MOUTH [place] 00 EVERY 8 Medical (EIGHT) Branch HOURS NEEDED (MUSCLE PAIN OR SPASM). TIZANIDINE 2020-0 Yes [id number] 4mg TAKE 1-2 [facility] 4 mg tablet 5-07 TABLETS BY it y of 00:00: MOUTH [place] 00 EVERY 8 Medical (EIGHT) Branch HOURS NEEDED (MUSCLE PAIN OR SPASM). TIZANIDINE 2020-0 Yes [id number] 4mg TAKE 1-2 [facility] 4 mg tablet 5-07 TABLETS BY it y of 00:00: MOUTH [place] 00 EVERY 8 Medical (EIGHT) Branch HOURS NEEDED (MUSCLE PAIN OR SPASM). TIZANIDINE 2020-0 Yes [id number] 4mg TAKE 1-2 [facility] 4 mg tablet 5-07 TABLETS BY it y of 00:00: MOUTH [place] 00 EVERY 8 Medical (EIGHT) Branch HOURS NEEDED (MUSCLE PAIN OR SPASM). TIZANIDINE 2020-0 Yes [id number] 4mg TAKE 1-2 [facility] 4 mg tablet 5-07 TABLETS BY it y of 00:00: MOUTH [place] 00 EVERY 8 Medical (EIGHT) Branch HOURS NEEDED (MUSCLE PAIN OR SPASM). TIZANIDINE 2020-0 Yes [id number] 4mg TAKE 1-2 [facility] 4 mg tablet 5-07 TABLETS BY it y of 00:00: MOUTH [place] 00 EVERY 8 Medical (EIGHT) Branch HOURS NEEDED (MUSCLE PAIN OR SPASM). TIZANIDINE 2020-0 Yes [id number] 4mg TAKE 1-2 [facility] 4 mg tablet 5-07 TABLETS BY it y of 00:00: MOUTH [place] 00 EVERY 8 Medical (EIGHT) Branch HOURS NEEDED (MUSCLE PAIN OR SPASM). TIZANIDINE 2020-0 Yes [id number] 4mg TAKE 1-2 [facility] 4 mg tablet 5-07 TABLETS BY it y of 00:00: MOUTH [place] 00 EVERY 8 Medical (EIGHT) Branch HOURS NEEDED (MUSCLE PAIN OR SPASM). TIZANIDINE 2020-0 Yes [id number] 4mg TAKE 1-2 [facility] 4 mg tablet 5-07 TABLETS BY it y of 00:00: MOUTH [place] 00 EVERY 8 Medical (EIGHT) Branch HOURS NEEDED (MUSCLE PAIN OR SPASM). TIZANIDINE 2020-0 Yes [id number] 4mg TAKE 1-2 [facility] 4 mg tablet 5-07 TABLETS BY it y of 00:00: MOUTH [place] 00 EVERY 8 Medical (EIGHT) Branch HOURS NEEDED (MUSCLE PAIN OR SPASM). TIZANIDINE 2020-0 Yes [id number] 4mg TAKE 1-2 [facility] 4 mg tablet 5-07 TABLETS BY it y of 00:00: MOUTH [place] 00 EVERY 8 Medical (EIGHT) Branch HOURS NEEDED (MUSCLE PAIN OR SPASM). TIZANIDINE 2020-0 Yes [id number] 4mg TAKE 1-2 [facility] 4 mg tablet 5-07 TABLETS BY it y of 00:00: MOUTH [place] 00 EVERY 8 Medical (EIGHT) Branch HOURS NEEDED (MUSCLE PAIN OR SPASM). TIZANIDINE 2020-0 Yes [id number] 4mg TAKE 1-2 [facility] 4 mg tablet 5-07 TABLETS BY it y of 00:00: MOUTH [place] 00 EVERY 8 Medical (EIGHT) Branch HOURS NEEDED (MUSCLE PAIN OR SPASM). TIZANIDINE 2020-0 Yes [id number] 4mg TAKE 1-2 [facility] 4 mg tablet 5-07 TABLETS BY it y of 00:00: MOUTH [place] 00 EVERY 8 Medical (EIGHT) Branch HOURS NEEDED (MUSCLE PAIN OR SPASM). TIZANIDINE 2020-0 Yes [id number] 4mg TAKE 1-2 [facility] 4 mg tablet 5-07 TABLETS BY it y of 00:00: MOUTH [place] 00 EVERY 8 Medical (EIGHT) Branch HOURS NEEDED (MUSCLE PAIN OR SPASM). TIZANIDINE 2020-0 Yes [id number] 4mg TAKE 1-2 [facility] 4 mg tablet 5-07 TABLETS BY it y of 00:00: MOUTH [place] 00 EVERY 8 Medical (EIGHT) Branch HOURS NEEDED (MUSCLE PAIN OR SPASM). TIZANIDINE 2020-0 Yes [id number] 4mg TAKE 1-2 [facility] 4 mg tablet 5-07 TABLETS BY it y of 00:00: MOUTH [place] 00 EVERY 8 Medical (EIGHT) Branch HOURS NEEDED (MUSCLE PAIN OR SPASM). TIZANIDINE 2020-0 Yes [id number] 4mg TAKE 1-2 [facility] 4 mg tablet 5-07 TABLETS BY it y of 00:00: MOUTH [place] 00 EVERY 8 Medical (EIGHT) Branch HOURS NEEDED (MUSCLE PAIN OR SPASM). TIZANIDINE 2020-0 2020- No [id number] 4mg TAKE 1-2 [facility] 4 mg tablet 5-07 12-07 TABLETS BY i ty of 00:00: 00:00 MOUTH [place] 00 :00 EVERY 8 Medical (EIGHT) Branch HOURS NEEDED (MUSCLE PAIN OR SPASM). TIZANIDINE 2020-0 2020- No [id number] 4mg TAKE 1-2 [facility] 4 mg tablet 5-07 12-07 TABLETS BY i ty of 00:00: 00:00 MOUTH [place] 00 :00 EVERY 8 Medical (EIGHT) Branch HOURS NEEDED (MUSCLE PAIN OR SPASM). levothyroxi 2020-0 Yes [id number] 50ug Take 1 [facility] ne 50 mcg 4-20 tablet by ity o f tablet 00:00: mouth [place] 00 every Medical morning. Branch levothyroxi 2020-0 Yes [id number] 50ug Take 1 [facility] ne 50 mcg 4-20 tablet by ity o f tablet 00:00: mouth [place] 00 every Medical morning. Branch levothyroxi 2020-0 Yes [id number] 50ug Take 1 [facility] ne 50 mcg 4-20 tablet by ity o f tablet 00:00: mouth [place] 00 every Medical morning. Branch levothyroxi 2020-0 Yes [id number] 50ug Take 1 [facility] ne 50 mcg 4-20 tablet by ity o f tablet 00:00: mouth [place] 00 every Medical morning. Branch levothyroxi 2020-0 Yes [id number] 50ug Take 1 [facility] ne 50 mcg 4-20 tablet by ity o f tablet 00:00: mouth [place] 00 every Medical morning. Branch levothyroxi 2020-0 Yes [id number] 50ug Take 1 [facility] ne 50 mcg 4-20 tablet by ity o f tablet 00:00: mouth [place] 00 every Medical morning. Branch levothyroxi 2020-0 Yes [id number] 50ug Take 1 [facility] ne 50 mcg 4-20 tablet by ity o f tablet 00:00: mouth [place] 00 every Medical morning. Branch levothyroxi 2020-0 Yes [id number] 50ug Take 1 [facility] ne 50 mcg 4-20 tablet by ity o f tablet 00:00: mouth [place] 00 every Medical morning. Branch levothyroxi 2020-0 Yes [id number] 50ug Take 1 [facility] ne 50 mcg 4-20 tablet by ity o f tablet 00:00: mouth [place] 00 every Medical morning. Branch levothyroxi 2020-0 Yes [id number] 50ug Take 1 [facility] ne 50 mcg 4-20 tablet by ity o f tablet 00:00: mouth [place] 00 every Medical morning. Branch levothyroxi 2020-0 Yes [id number] 50ug Take 1 [facility] ne 50 mcg 4-20 tablet by ity o f tablet 00:00: mouth [place] 00 every Medical morning. Branch levothyroxi 2020-0 Yes [id number] 50ug Take 1 [facility] ne 50 mcg 4-20 tablet by ity o f tablet 00:00: mouth [place] 00 every Medical morning. Branch levothyroxi 2020-0 Yes [id number] 50ug Take 1 [facility] ne 50 mcg 4-20 tablet by ity o f tablet 00:00: mouth [place] 00 every Medical morning. Branch levothyroxi 2020-0 Yes [id number] 50ug Take 1 [facility] ne 50 mcg 4-20 tablet by ity o f tablet 00:00: mouth [place] 00 every Medical morning. Branch levothyroxi 2020-0 Yes [id number] 50ug Take 1 [facility] ne 50 mcg 4-20 tablet by ity o f tablet 00:00: mouth [place] 00 every Medical morning. Branch levothyroxi 2020-0 Yes [id number] 50ug Take 1 [facility] ne 50 mcg 4-20 tablet by ity o f tablet 00:00: mouth [place] 00 every Medical morning. Branch levothyroxi 2020-0 Yes [id number] 50ug Take 1 [facility] ne 50 mcg 4-20 tablet by ity o f tablet 00:00: mouth [place] 00 every Medical morning. Branch levothyroxi 2020-0 Yes [id number] 50ug Take 1 [facility] ne 50 mcg 4-20 tablet by ity o f tablet 00:00: mouth [place] 00 every Medical morning. Branch levothyroxi 2020-0 Yes [id number] 50ug Take 1 [facility] ne 50 mcg 4-20 tablet by ity o f tablet 00:00: mouth [place] 00 every Medical morning. Branch levothyroxi 2020-0 Yes [id number] 50ug Take 1 [facility] ne 50 mcg 4-20 tablet by ity o f tablet 00:00: mouth [place] 00 every Medical morning. Branch levothyroxi 2020-0 Yes [id number] 50ug Take 1 [facility] ne 50 mcg 4-20 tablet by ity o f tablet 00:00: mouth [place] 00 every Medical morning. Branch levothyroxi 2020-0 Yes [id number] 50ug Take 1 [facility] ne 50 mcg 4-20 tablet by ity o f tablet 00:00: mouth [place] 00 every Medical morning. Branch levothyroxi 2020-0 Yes [id number] 50ug Take 1 [facility] ne 50 mcg 4-20 tablet by ity o f tablet 00:00: mouth [place] 00 every Medical morning. Branch levothyroxi 2020-0 Yes [id number] 50ug Take 1 [facility] ne 50 mcg 4-20 tablet by ity o f tablet 00:00: mouth [place] 00 every Medical morning. Branch levothyroxi 2020-0 Yes [id number] 50ug Take 1 [facility] ne 50 mcg 4-20 tablet by ity o f tablet 00:00: mouth [place] 00 every Medical morning. Branch levothyroxi 2020-0 Yes [id number] 50ug Take 1 [facility] ne 50 mcg 4-20 tablet by ity o f tablet 00:00: mouth [place] 00 every Medical morning. Branch levothyroxi 2020-0 Yes [id number] 50ug Take 1 [facility] ne 50 mcg 4-20 tablet by ity o f tablet 00:00: mouth [place] 00 every Medical morning. Branch levothyroxi 2020-0 Yes [id number] 50ug Take 1 [facility] ne 50 mcg 4-20 tablet by ity o f tablet 00:00: mouth [place] 00 every Medical morning. Branch levothyroxi 2020-0 Yes [id number] 50ug Take 1 [facility] ne 50 mcg 4-20 tablet by ity o f tablet 00:00: mouth [place] 00 every Medical morning. Branch levothyroxi 2020-0 Yes [id number] 50ug Take 1 [facility] ne 50 mcg 4-20 tablet by ity o f tablet 00:00: mouth [place] 00 every Medical morning. Branch levothyroxi 2020-0 Yes [id number] 50ug Take 1 [facility] ne 50 mcg 4-20 tablet by ity o f tablet 00:00: mouth [place] 00 every Medical morning. Branch levothyroxi 2020-0 Yes [id number] 50ug Take 1 [facility] ne 50 mcg 4-20 tablet by ity o f tablet 00:00: mouth [place] 00 every Medical morning. Branch levothyroxi 2020-0 Yes [id number] 50ug Take 1 [facility] ne 50 mcg 4-20 tablet by ity o f tablet 00:00: mouth [place] 00 every Medical morning. Branch levothyroxi 2020-0 Yes [id number] 50ug Take 1 [facility] ne 50 mcg 4-20 tablet by ity o f tablet 00:00: mouth [place] 00 every Medical morning. Branch levothyroxi 2020-0 Yes [id number] 50ug Take 1 [facility] ne 50 mcg 4-20 tablet by ity o f tablet 00:00: mouth [place] 00 every Medical morning. Branch levothyroxi 2020-0 Yes [id number] 50ug Take 1 [facility] ne 50 mcg 4-20 tablet by ity o f tablet 00:00: mouth [place] 00 every Medical morning. Branch levothyroxi 2020-0 Yes [id number] 50ug Take 1 [facility] ne 50 mcg 4-20 tablet by ity o f tablet 00:00: mouth [place] 00 every Medical morning. Branch levothyroxi 2020-0 Yes [id number] 50ug Take 1 [facility] ne 50 mcg 4-20 tablet by ity o f tablet 00:00: mouth [place] 00 every Medical morning. Branch levothyroxi 2020-0 Yes [id number] 50ug Take 1 [facility] ne 50 mcg 4-20 tablet by ity o f tablet 00:00: mouth [place] 00 every Medical morning. Branch levothyroxi 2020-0 Yes [id number] 50ug Take 1 [facility] ne 50 mcg 4-20 tablet by ity o f tablet 00:00: mouth [place] 00 every Medical morning. Branch levothyroxi 2020-0 Yes [id number] 50ug Take 1 [facility] 50 mcg 4-20 tablet by [facility] o f tablet 00:00: mouth [place] 00 every Medical morning. Branch levothyroxi 2020-0 Yes [id number] 50ug Take 1 [facility] 50 mcg 4-20 tablet by [facility] o f tablet 00:00: mouth [place] 00 every Medical morning. Branch levothyroxi 2020-0 2020- No [id number] 50ug Take 1 [facility] 50 mcg 4-20 10-23 tablet by [facility] of tablet 00:00: 00:00 mouth [place] 00 :00 every Medical morning. Branch rivaroxaban 2020-0 Yes 1291 20mg Take 1 [facility] (XARELTO) 4-14 tablet by ity o f 20 mg 00:00: mouth [place] tablet 00 daily. Medical STOP Branch ELIQUIS. Indication s: a clot in the lung rivaroxaban 2020-0 Yes 1291 20mg Take 1 [facility] (XARELTO) 4-14 tablet by ity o f 20 mg 00:00: mouth [place] tablet 00 daily. Medical STOP Branch ELIQUIS. Indication s: a clot in the lung rivaroxaban 2020-0 Yes 1291 20mg Take 1 [facility] (XARELTO) 4-14 tablet by ity o f 20 mg 00:00: mouth [place] tablet 00 daily. Medical STOP Branch ELIQUIS. Indication s: a clot in the lung rivaroxaban 2020-0 Yes 1291 20mg Take 1 [facility] (XARELTO) 4-14 tablet by ity o f 20 mg 00:00: mouth [place] tablet 00 daily. Medical STOP Branch ELIQUIS. Indication s: a clot in the lung rivaroxaban 2020-0 Yes 1291 20mg Take 1 [facility] (XARELTO) 4-14 tablet by ity o f 20 mg 00:00: mouth [place] tablet 00 daily. Medical STOP Branch ELIQUIS. Indication s: a clot in the lung rivaroxaban 2020-0 Yes 1291 20mg Take 1 [facility] (XARELTO) 4-14 tablet by ity o f 20 mg 00:00: mouth [place] tablet 00 daily. Medical STOP Branch ELIQUIS. Indication s: a clot in the lung rivaroxaban 2020-0 Yes 1291 20mg Take 1 [facility] (XARELTO) 4-14 tablet by ity o f 20 mg 00:00: mouth [place] tablet 00 daily. Medical STOP Branch ELIQUIS. Indication s: a clot in the lung rivaroxaban 2020-0 Yes 1291 20mg Take 1 [facility] (XARELTO) 4-14 tablet by ity o f 20 mg 00:00: mouth [place] tablet 00 daily. Medical STOP Branch ELIQUIS. Indication s: a clot in the lung rivaroxaban 2020-0 Yes 1291 20mg Take 1 [facility] (XARELTO) 4-14 tablet by ity o f 20 mg 00:00: mouth [place] tablet 00 daily. Medical STOP Branch ELIQUIS. Indication s: a clot in the lung rivaroxaban 2020-0 Yes 1291 20mg Take 1 [facility] (XARELTO) 4-14 tablet by ity o f 20 mg 00:00: mouth [place] tablet 00 daily. Medical STOP Branch ELIQUIS. Indication s: a clot in the lung rivaroxaban 2020-0 Yes 1291 20mg Take 1 [facility] (XARELTO) 4-14 tablet by ity o f 20 mg 00:00: mouth [place] tablet 00 daily. Medical STOP Branch ELIQUIS. Indication s: a clot in the lung rivaroxaban 2020-0 Yes 1291 20mg Take 1 [facility] (XARELTO) 4-14 tablet by ity o f 20 mg 00:00: mouth [place] tablet 00 daily. Medical STOP Branch ELIQUIS. Indication s: a clot in the lung rivaroxaban 2020-0 Yes 1291 20mg Take 1 [facility] (XARELTO) 4-14 tablet by ity o f 20 mg 00:00: mouth [place] tablet 00 daily. Medical STOP Branch ELIQUIS. Indication s: a clot in the lung rivaroxaban 2020-0 Yes 1291 20mg Take 1 [facility] (XARELTO) 4-14 tablet by ity o f 20 mg 00:00: mouth [place] tablet 00 daily. Medical STOP Branch ELIQUIS. Indication s: a clot in the lung rivaroxaban 2020-0 Yes 1291 20mg Take 1 [facility] (XARELTO) 4-14 tablet by ity o f 20 mg 00:00: mouth [place] tablet 00 daily. Medical STOP Branch ELIQUIS. Indication s: a clot in the lung rivaroxaban 2020-0 Yes 1291 20mg Take 1 [facility] (XARELTO) 4-14 tablet by ity o f 20 mg 00:00: mouth [place] tablet 00 daily. Medical STOP Branch ELIQUIS. Indication s: a clot in the lung rivaroxaban 2020-0 Yes 1291 20mg Take 1 [facility] (XARELTO) 4-14 tablet by ity o f 20 mg 00:00: mouth [place] tablet 00 daily. Medical STOP Branch ELIQUIS. Indication s: a clot in the lung rivaroxaban 2020-0 Yes 1291 20mg Take 1 [facility] (XARELTO) 4-14 tablet by ity o f 20 mg 00:00: mouth [place] tablet 00 daily. Medical STOP Branch ELIQUIS. Indication s: a clot in the lung rivaroxaban 2020-0 Yes 1291 20mg Take 1 [facility] (XARELTO) 4-14 tablet by ity o f 20 mg 00:00: mouth [place] tablet 00 daily. Medical STOP Branch ELIQUIS. Indication s: a clot in the lung rivaroxaban 2020-0 Yes 1291 20mg Take 1 [facility] (XARELTO) 4-14 tablet by ity o f 20 mg 00:00: mouth [place] tablet 00 daily. [facility]: a [facility] in the lung rivaroxaban 2020-0 Yes 1291 20mg Take 1 [facility] (XARELTO) 4-14 tablet by ity o f 20 mg 00:00: mouth [place] tablet 00 daily. Medical STOP Branch ELIQUIS. Indication s: a clot in the lung rivaroxaban 2020-0 Yes 1291 20mg Take 1 [facility] (XARELTO) 4-14 tablet by ity o f 20 mg 00:00: mouth [place] tablet 00 daily. Medical STOP Branch ELIQUIS. Indication s: a clot in the lung rivaroxaban 2020-0 Yes 1291 20mg Take 1 [facility] (XARELTO) 4-14 tablet by ity o f 20 mg 00:00: mouth [place] tablet 00 daily. Medical STOP Branch ELIQUIS. Indication s: a clot in the lung rivaroxaban 2020-0 Yes 1291 20mg Take 1 [facility] (XARELTO) 4-14 tablet by ity o f 20 mg 00:00: mouth [place] tablet 00 daily. Medical STOP Branch ELIQUIS. Indication s: a clot in the lung rivaroxaban 2020-0 Yes 1291 20mg Take 1 [facility] (XARELTO) 4-14 tablet by ity o f 20 mg 00:00: mouth [place] tablet 00 daily. Medical STOP Branch ELIQUIS. Indication s: a clot in the lung rivaroxaban 2020-0 Yes 1291 20mg Take 1 [facility] (XARELTO) 4-14 tablet by ity o f 20 mg 00:00: mouth [place] tablet 00 daily. Medical STOP Branch ELIQUIS. Indication s: a clot in the lung rivaroxaban 2020-0 Yes 1291 20mg Take 1 [facility] (XARELTO) 4-14 tablet by ity o f 20 mg 00:00: mouth [place] tablet 00 daily. Medical STOP Branch ELIQUIS. Indication s: a clot in the lung rivaroxaban 2020-0 Yes 1291 20mg Take 1 [facility] (XARELTO) 4-14 tablet by ity o f 20 mg 00:00: mouth [place] tablet 00 daily. Medical STOP [place] ELIQUIS. Indication s: a clot in the lung rivaroxaban 2020-0 Yes 1291 20mg Take 1 [facility] (XARELTO) 4-14 tablet by ity o f 20 mg 00:00: mouth [place] tablet 00 daily. Medical STOP [place] ELIQUIS. Indication s: a clot in the lung rivaroxaban 2020-0 Yes 1291 20mg Take 1 [facility] (XARELTO) 4-14 tablet by ity o f 20 mg 00:00: mouth [place] tablet 00 daily. Medical STOP [place] ELIQUIS. Indication s: a clot in the lung rivaroxaban 2020-0 Yes 1291 20mg Take 1 [facility] (XARELTO) 4-14 tablet by ity o f 20 mg 00:00: mouth [place] tablet 00 daily. Medical STOP [place] ELIQUIS. Indication s: a clot in the lung rivaroxaban 2020-0 Yes 1291 20mg Take 1 [facility] (XARELTO) 4-14 tablet by ity o f 20 mg 00:00: mouth [place] tablet 00 daily. Medical STOP Branch ELIQUIS. Indication s: a clot in the lung rivaroxaban 2020-0 Yes 1291 20mg Take 1 [facility] (XARELTO) 4-14 tablet by ity o f 20 mg 00:00: mouth [place] tablet 00 daily. Medical STOP [place] ELIQUIS. Indication s: a clot in the lung rivaroxaban 2020-0 2020- No 1291 20mg Take 1 [facility] (XARELTO) 4-14 10-05 tablet by ity of 20 mg 00:00: 00:00 mouth [place] tablet 00 :00 daily. Medical STOP Branch ELIQUIS. Indication s: a clot in the lung rivaroxaban 2020-0 2020- No 1291 20mg Take 1 [facility] (XARELTO) 4-14 10-05 tablet by [facility] of 20 mg 00:00: 00:00 mouth [place] tablet 00 :00 daily. Medical STOP Branch ELIQUIS. Indication s: a clot in the lung TRAZODONE 2020-0 Yes [id number] 100mg TAKE 1 [facility] 100 mg 4-06 TABLET BY [facility] of tablet 00:00: MOUTH AT [place] [address] BEDTIME. Medical FOR Branch INSOMNIA. TRAZODONE 2020-0 Yes [id number] 100mg TAKE 1 [facility] 100 mg 4-06 TABLET BY ity of tablet 00:00: MOUTH AT [place] 00 BEDTIME. Medical FOR Branch INSOMNIA. TRAZODONE 2020-0 Yes [id number] 100mg TAKE 1 [facility] 100 mg 4-06 TABLET BY ity of tablet 00:00: MOUTH AT [place] [address] BEDTIME. Medical FOR Branch INSOMNIA. TRAZODONE 2020-0 Yes [id number] 100mg TAKE 1 [facility] 100 mg 4-06 TABLET BY ity of tablet 00:00: MOUTH AT [place] [address] BEDTIME. Medical FOR Branch INSOMNIA. TRAZODONE 2020-0 Yes [id number] 100mg TAKE 1 [facility] 100 mg 4-06 TABLET BY ity of tablet 00:00: MOUTH AT [place] [address] BEDTIME. Medical FOR Branch INSOMNIA. TRAZODONE 2020-0 Yes [id number] 100mg TAKE 1 [facility] 100 mg 4-06 TABLET BY ity of tablet 00:00: MOUTH AT [place] [address] BEDTIME. Medical FOR Branch INSOMNIA. TRAZODONE 2020-0 Yes [id number] 100mg TAKE 1 [facility] 100 mg 4-06 TABLET BY ity of tablet 00:00: MOUTH AT [place] [address] BEDTIME. Medical FOR Branch INSOMNIA. TRAZODONE 2020-0 Yes [id number] 100mg TAKE 1 [facility] 100 mg 4-06 TABLET BY ity of tablet 00:00: MOUTH AT [place] [address] BEDTIME. Medical FOR Branch INSOMNIA. TRAZODONE 2020-0 Yes [id number] 100mg TAKE 1 [facility] 100 mg 4-06 TABLET BY ity of tablet 00:00: MOUTH AT [place] [address] BEDTIME. Medical FOR Branch INSOMNIA. TRAZODONE 2020-0 Yes [id number] 100mg TAKE 1 [facility] 100 mg 4-06 TABLET BY ity of tablet 00:00: MOUTH AT [place] [address] BEDTIME. Medical FOR Branch INSOMNIA. TRAZODONE 2020-0 Yes [id number] 100mg TAKE 1 [facility] 100 mg 4-06 TABLET BY ity of tablet 00:00: MOUTH AT [place] [address] BEDTIME. Medical FOR Branch INSOMNIA. TRAZODONE 2020-0 Yes [id number] 100mg TAKE 1 [facility] 100 mg 4-06 TABLET BY ity of tablet 00:00: MOUTH AT [place] [address] BEDTIME. Medical FOR Branch INSOMNIA. TRAZODONE 2020-0 Yes [id number] 100mg TAKE 1 [facility] 100 mg 4-06 TABLET BY ity of tablet 00:00: MOUTH AT [place] [address] BEDTIME. Medical FOR Branch INSOMNIA. TRAZODONE 2020-0 Yes [id number] 100mg TAKE 1 [facility] 100 mg 4-06 TABLET BY ity of tablet 00:00: MOUTH AT [place] [address] BEDTIME. Medical FOR Branch INSOMNIA. TRAZODONE 2020-0 Yes [id number] 100mg TAKE 1 [facility] 100 mg 4-06 TABLET BY ity of tablet 00:00: MOUTH AT [place] [address] BEDTIME. Medical FOR Branch INSOMNIA. TRAZODONE 2020-0 Yes [id number] 100mg TAKE 1 [facility] 100 mg 4-06 TABLET BY ity of tablet 00:00: MOUTH AT [place] [address] BEDTIME. Medical FOR Branch INSOMNIA. TRAZODONE 2020-0 Yes [id number] 100mg TAKE 1 [facility] 100 mg 4-06 TABLET BY ity of tablet 00:00: MOUTH AT [place] [address] BEDTIME. Medical FOR Branch INSOMNIA. TRAZODONE 2020-0 2020- No [id number] 100mg TAKE 1 [facility] 100 mg 4-06 08-24 TABLET BY ity of tablet 00:00: 00:00 MOUTH AT [place] 00 :00 BEDTIME. Medical FOR Branch INSOMNIA. TRAZODONE 2020-0 2020- No [id number] 100mg TAKE 1 [facility] 100 mg 4-06 08-24 TABLET BY ity of tablet 00:00: 00:00 MOUTH AT [place] 00 :00 BEDTIME. Medical FOR Branch INSOMNIA. TRAZODONE 2020-0 2020- No [id number] 100mg TAKE 1 [facility] 100 mg 4-06 08-24 TABLET BY ity of tablet 00:00: 00:00 MOUTH AT [place] 00 :00 BEDTIME. Medical FOR Branch INSOMNIA. levothyroxi 2020-0 Yes 37.5ug 37.5 mcg, [facility] ne 3-25 Oral, ity of (SYNTHROID) 11:00: QAM-0600, [place] tablet 37.5 00 First dose Me dical mcg on Sun [place] 12/10/19 at 0600, Until Discontinu ed, Routine apixaban 2020-0 Yes 10mg 10 mg, [facility] (ELIQUIS) 3-25 Oral, BID, ity of tablet 10 01:00: First dose [place] mg 00 on Sun Medical 12/09/19 at Branch 2000, Until Discontinu ed, Routine alcaftadine 2020-[address] in [facility] nivers (LASTACAFT) 3-25 each eye. ity of 0.25 % Drop 00:58: [place] 08 Medical Branch CYCLOSPORIN 2020-[address] in U nivers E (RESTASIS 3-25 each eye. ity of OPHTHALMIC) 00:58: [place] 08 Medical Branch ASCORBATE 2020-0 Yes Take by [place] [facility] ers CALCIUM 3-25 mouth. ity of (VITAMIN C 00:58: [place] ORAL) Medical Branch DOCOSAHEXAN 2020-0 Yes Take by [facility] [place] OIC 3-25 mouth. ity of ACID/EPA 00:58: [place] (FISH OIL 08 Medical ORAL) Branch vitamin E 2020-0 Yes 1000U Take 1,000 U nivers 1,000 unit 3-25 Units by ity o f capsule 00:58: mouth [place] 08 daily. Medical Branch Magnesium 2020-0 Yes Take by [facility] ers 250 mg Tab 3-25 mouth. ity of 00:58: [place] 08 Medical Branch vitamin B-6 2020-0 Yes 100mg Take 100 U nivers (VITAMIN 3-25 mg by ity of B-6) 100 mg 00:58: mouth [place] tablet 08 daily. Medical Branch CALCIUM 2020-0 Yes Take by Univer s CARBONATE/V 3-25 mouth. ity of ITAMIN D3 00:58: [place] (VITAMIN 08 Medical D-3 ORAL) Branch oxyCODONE-a 2020-0 Yes 1{tbl} Take 1 [facility] [place] cetaminophe 3-25 tablet by ity of n 7.5-325 00:58: mouth 2 [place] mg per 08 (two) Medical tablet times Branch daily as needed for Pain. alcaftadine 2020-[address] in [facility] nivers (LASTACAFT) 3-25 each eye. ity of 0.25 % Drop 00:58: [place] 08 Medical Branch CYCLOSPORIN 2020-[address] in U nivers E (RESTASIS 3-25 each eye. ity of OPHTHALMIC) 00:58: [place] 08 Medical Branch ASCORBATE 2020-0 Yes Take by [facility] ers CALCIUM 3-25 mouth. ity of (VITAMIN C 00:58: [place] ORAL) 08 Medical Branch DOCOSAHEXAN 2020-0 Yes Take by [facility] [place] OIC 3-25 mouth. ity of ACID/EPA 00:58: [place] (FISH OIL 08 Medical ORAL) Branch vitamin E 2020-0 Yes 1000U Take 1,000 U nivers 1,000 unit 3-25 Units by ity o f capsule 00:58: mouth [place] 08 daily. Medical Branch Magnesium 2020-0 Yes Take by [facility] ers 250 mg Tab 3-25 mouth. ity of 00:58: [place] 08 Medical Branch vitamin B-6 2020-0 Yes 100mg Take 100 U nivers (VITAMIN 3-25 mg by ity of B-6) 100 mg 00:58: mouth [place] tablet 08 daily. Medical Branch CALCIUM 2020-0 Yes [facility] [place] [facility]-25 mouth. ity of ITAMIN D3 00:58: [place] (VITAMIN 08 Medical D-3 ORAL) Branch oxyCODONE-a 2020-0 Yes 1{tbl} Take 1 [place] cetaminophe 3-25 tablet by ity of n 7.5-325 00:58: mouth 2 [place] mg per 08 (two) Medical tablet times Branch daily as needed for Pain. alcaftadine 2020-[address] in U nivers (LASTACAFT) 3-25 each eye. ity of 0.25 % Drop 00:58: [place] 08 Medical Branch CYCLOSPORIN 2020-[address] in U nivers E (RESTASIS 3-25 each eye. ity of OPHTHALMIC) 00:58: [place] 08 Medical Branch ASCORBATE 2020-0 Yes Take by [facility] ers CALCIUM 3-25 mouth. ity of (VITAMIN C 00:58: [place] ORAL) 08 Medical Branch DOCOSAHEXAN 2020-0 Yes Take by [facility] [place] OIC 3-25 mouth. ity of ACID/EPA 00:58: [place] (FISH OIL 08 Medical ORAL) Branch vitamin E 2020-0 Yes 1000U Take 1,000 U nivers 1,000 unit 3-25 Units by ity o f capsule 00:58: mouth [place] 08 daily. Medical Branch Magnesium 2020-0 Yes Take by [facility] ers 250 mg Tab 3-25 mouth. ity of 00:58: [place] 08 Medical Branch vitamin B-6 2020-0 Yes 100mg Take 100 U nivers (VITAMIN 3-25 mg by ity of B-6) 100 mg 00:58: mouth [place] tablet 08 daily. Medical Branch CALCIUM 2020-0 Yes Take by Univer s CARBONATE/V 3-25 mouth. ity of ITAMIN D3 00:58: [place] (VITAMIN 08 Medical D-3 ORAL) Branch oxyCODONE-a 2020-0 Yes 1{tbl} Take 1 [place] cetaminophe 3-25 tablet by ity of n 7.5-325 00:58: mouth 2 [place] mg per 08 (two) Medical tablet times Branch daily as needed for Pain. alcaftadine 2020-[address] in U nivers (LASTACAFT) 3-25 each eye. ity of 0.25 % Drop 00:58: 08 Medical Branch CYCLOSPORIN 2020-[address] in U nivers E (RESTASIS 3-25 each eye. ity of OPHTHALMIC) 00:58: 08 Medical Branch ASCORBATE 2020-0 Yes Take by [facility] ers CALCIUM 3-25 mouth. ity of (VITAMIN C 00:58: [place] ORAL) 08 Medical Branch DOCOSAHEXAN 2020-0 Yes Take by [facility] [place] OIC 3-25 mouth. ity of ACID/EPA 00:58: [place] (FISH OIL 08 Medical ORAL) Branch vitamin E 2020-0 Yes 1000U Take 1,000 U nivers 1,000 unit 3-25 Units by ity o f capsule 00:58: mouth [place] 08 daily. Medical Branch Magnesium 2020-0 Yes Take by [facility] ers 250 mg Tab 3-25 mouth. ity of 00:58: [place] 08 Medical Branch vitamin B-6 2020-0 Yes 100mg Take 100 U nivers (VITAMIN 3-25 mg by ity of B-6) 100 mg 00:58: mouth [place] tablet 08 daily. Medical Branch CALCIUM 2020-0 Yes Take by Univer s CARBONATE/V 3-25 mouth. ity of ITAMIN D3 00:58: (VITAMIN 08 Medical D-3 ORAL) Branch alcaftadine 2020-[address] in U nivers (LASTACAFT) 3-25 each eye. ity of 0.25 % Drop 00:58: [place] 08 Medical Branch CYCLOSPORIN 2020-[address] in U nivers E (RESTASIS 3-25 each eye. ity of OPHTHALMIC) 00:58: [place] 08 Medical Branch ASCORBATE 2020-0 Yes Take by [facility] ers CALCIUM 3-25 mouth. ity of (VITAMIN C 00:58: [place] ORAL) 08 Medical Branch DOCOSAHEXAN 2020-0 Yes Take by [facility] [place] OIC 3-25 mouth. ity of ACID/EPA 00:58: [place] (FISH OIL 08 Medical ORAL) Branch vitamin E 2020-0 Yes 1000U Take 1,000 U nivers 1,000 unit 3-25 Units by ity o f capsule 00:58: mouth [place] 08 daily. Medical Branch Magnesium 2020-0 Yes Take by [facility] ers 250 mg Tab 3-25 mouth. ity of 00:58: [place] 08 Medical Branch vitamin B-6 2020-0 Yes 100mg Take 100 U nivers (VITAMIN 3-25 mg by ity of B-6) 100 mg 00:58: mouth [place] tablet 08 daily. Medical Branch CALCIUM 2020-0 [facility] [place] [facility]-25 mouth. ity of ITAMIN D3 00:58: [place] (VITAMIN 08 Medical D-3 ORAL) Branch oxyCODONE-a 2020-0 Yes 1{tbl} Take 1 [place] cetaminophe 3-25 tablet by ity of n 7.5-325 00:58: mouth 2 [place] mg per 08 (two) Medical tablet times Branch daily as needed for Pain. alcaftadine 2020-[address] in U nivers (LASTACAFT) 3-25 each eye. ity of 0.25 % Drop 00:58: [place] 08 Medical Branch CYCLOSPORIN 2020-[address] in U nivers E (RESTASIS 3-25 each eye. ity of OPHTHALMIC) 00:58: 08 Medical Branch ASCORBATE 2020-0 Yes Take by [place] [facility] ers CALCIUM 3-25 mouth. ity of (VITAMIN C 00:58: [place] ORAL) 08 Medical Branch DOCOSAHEXAN 2020-0 Yes Take by [place] OIC 3-25 mouth. ity of ACID/EPA 00:58: [place] (FISH OIL 08 Medical ORAL) Branch vitamin E 2020-0 Yes 1000U Take 1,000 U nivers 1,000 unit 3-25 Units by ity o f capsule 00:58: mouth [place] 08 daily. Medical Branch Magnesium 2020-0 Yes Take by [facility] ers 250 mg Tab 3-25 mouth. ity of 00:58: 08 Medical Branch vitamin B-6 2020-0 Yes 100mg Take 100 U nivers (VITAMIN 3-25 mg by ity of B-6) 100 mg 00:58: mouth [place] tablet 08 daily. Medical Branch CALCIUM 2020-0 Yes Take by Univer s CARBONATE/V 3-25 mouth. ity of ITAMIN D3 00:58: [place] (VITAMIN 08 Medical D-3 ORAL) Branch oxyCODONE-a 2020-0 Yes 1{tbl} Take 1 [place] cetaminophe 3-25 tablet by ity of n 7.5-325 00:58: mouth 2 [place] mg per 08 (two) Medical tablet times Branch daily as needed for Pain. alcaftadine 2020-[address] in U nivers (LASTACAFT) 3-25 each eye. ity of 0.25 % Drop 00:58: 08 Medical Branch CYCLOSPORIN 2020-[address] in U nivers E (RESTASIS 3-25 each eye. ity of OPHTHALMIC) 00:58: 08 Medical Branch ASCORBATE 2020-0 Yes Take by Univ ers CALCIUM 3-25 mouth. ity of (VITAMIN C 00:58: [place] ORAL) 08 Medical Branch DOCOSAHEXAN 2020-0 Yes Take by [place] OIC 3-25 mouth. ity of ACID/EPA 00:58: [place] (FISH OIL 08 Medical ORAL) Branch vitamin E 2020-0 Yes 1000U Take 1,000 U nivers 1,000 unit 3-25 Units by ity o f capsule 00:58: mouth [place] 08 daily. Medical Branch Magnesium 2020-0 Yes Take by [facility] ers 250 mg Tab 3-25 mouth. ity of 00:58: 08 Medical Branch vitamin B-6 2020-0 Yes 100mg Take 100 U nivers (VITAMIN 3-25 mg by ity of B-6) 100 mg 00:58: mouth [place] tablet 08 daily. Medical Branch CALCIUM 2020-0 Yes Take by Univer s CARBONATE/V 3-25 mouth. ity of ITAMIN D3 00:58: (VITAMIN 08 Medical D-3 ORAL) Branch oxyCODONE-a 2020-0 Yes 1{tbl} Take 1 [place] cetaminophe 3-25 tablet by ity of n 7.5-325 00:58: mouth 2 [place] mg per 08 (two) Medical tablet times Branch daily as needed for Pain. alcaftadine 2020-[address] in U nivers (LASTACAFT) 3-25 each eye. ity of 0.25 % Drop 00:58: [place] 08 Medical Branch CYCLOSPORIN 2020-[address] in U nivers E (RESTASIS 3-25 each eye. ity of OPHTHALMIC) 00:58: [place] 08 Medical Branch ASCORBATE 2020-0 Yes Take by [facility] ers CALCIUM 3-25 mouth. ity of (VITAMIN C 00:58: [place] ORAL) 08 Medical Branch DOCOSAHEXAN 2020-0 Yes Take by [place] OIC 3-25 mouth. ity of ACID/EPA 00:58: [place] (FISH OIL 08 Medical ORAL) Branch vitamin E 2020-0 Yes 1000U Take 1,000 U nivers 1,000 unit 3-25 Units by ity o f capsule 00:58: mouth [place] 08 daily. Medical Branch Magnesium 2020-0 Yes Take by [facility] ers 250 mg Tab 3-25 mouth. ity of 00:58: [place] 08 Medical Branch vitamin B-6 2020-0 Yes 100mg Take 100 U nivers (VITAMIN 3-25 mg by ity of B-6) 100 mg 00:58: mouth [place] tablet 08 daily. Medical Branch CALCIUM 2020-0 Yes Take by Univer s CARBONATE/V 3-25 mouth. ity of ITAMIN D3 00:58: [place] (VITAMIN 08 Medical D-3 ORAL) Branch oxyCODONE-a 2020-0 Yes 1{tbl} Take 1 [place] cetaminophe 3-25 tablet by ity of n 7.5-325 00:58: mouth 2 [place] mg per 08 (two) Medical tablet times Branch daily as needed for Pain. alcaftadine 2020-[address] in U nivers (LASTACAFT) 3-25 each eye. ity of 0.25 % Drop 00:58: [place] 08 Medical Branch CYCLOSPORIN 2020-[address] in U nivers E (RESTASIS 3-25 each eye. ity of OPHTHALMIC) 00:58: [place] 08 Medical Branch ASCORBATE 2020-0 Yes Take by Univ ers CALCIUM 3-25 mouth. ity of (VITAMIN C 00:58: [place] ORAL) 08 Medical Branch DOCOSAHEXAN 2020-0 Yes Take by [place] OIC 3-25 mouth. ity of ACID/EPA 00:58: [place] (FISH OIL 08 Medical ORAL) Branch vitamin E 2020-0 Yes 1000U Take 1,000 U nivers 1,000 unit 3-25 Units by ity o f capsule 00:58: mouth [place] 08 daily. Medical Branch Magnesium 2020-0 Yes Take by [facility] ers 250 mg Tab 3-25 mouth. ity of 00:58: [place] 08 Medical Branch vitamin B-6 2020-0 Yes 100mg Take 100 U nivers (VITAMIN 3-25 mg by ity of B-6) 100 mg 00:58: mouth [place] tablet 08 daily. Medical Branch CALCIUM 2020-0 Yes Take by Univer s CARBONATE/V 3-25 mouth. ity of ITAMIN D3 00:58: [place] (VITAMIN 08 Medical D-3 ORAL) Branch oxyCODONE-a 2020-0 Yes 1{tbl} Take 1 [place] cetaminophe 3-25 tablet by ity of n 7.5-325 00:58: mouth 2 [place] mg per 08 (two) Medical tablet times Branch daily as needed for Pain. alcaftadine 2020-[address] in U nivers (LASTACAFT) 3-25 each eye. ity of 0.25 % Drop 00:58: 08 Medical Branch CYCLOSPORIN 2020-[address] in U nivers E (RESTASIS 3-25 each eye. ity of OPHTHALMIC) 00:58: [place] 08 Medical Branch ASCORBATE 2020-0 Yes Take by [facility] ers CALCIUM 3-25 mouth. ity of (VITAMIN C 00:58: [place] ORAL) 08 Medical Branch DOCOSAHEXAN 2020-0 Yes Take by [place] OIC 3-25 mouth. ity of ACID/EPA 00:58: [place] (FISH OIL 08 Medical ORAL) Branch vitamin E 2020-0 Yes 1000U Take 1,000 U nivers 1,000 unit 3-25 Units by ity o f capsule 00:58: mouth [place] 08 daily. Medical Branch Magnesium 2020-0 Yes Take by [facility] ers 250 mg Tab 3-25 mouth. ity of 00:58: [place] 08 Medical Branch vitamin B-6 2020-0 Yes 100mg Take 100 U nivers (VITAMIN 3-25 mg by ity of B-6) 100 mg 00:58: mouth [place] tablet 08 daily. Medical Branch CALCIUM 2020-0 Yes Take by Univer s CARBONATE/V 3-25 mouth. ity of ITAMIN D3 00:58: [place] (VITAMIN 08 Medical D-3 ORAL) Branch oxyCODONE-a 2020-0 Yes 1{tbl} Take 1 [place] cetaminophe 3-25 tablet by ity of n 7.5-325 00:58: mouth 2 [place] mg per 08 (two) Medical tablet times Branch daily as needed for Pain. alcaftadine 2020-[address] in U nivers (LASTACAFT) 3-25 each eye. ity of 0.25 % Drop 00:58: [place] 08 Medical Branch CYCLOSPORIN 2020-[address] in U nivers E (RESTASIS 3-25 each eye. ity of OPHTHALMIC) 00:58: [place] 08 Medical Branch ASCORBATE 2020-0 Yes Take by Univ ers CALCIUM 3-25 mouth. ity of (VITAMIN C 00:58: [place] ORAL) 08 Medical Branch DOCOSAHEXAN 2020-0 Yes Take by [place] OIC 3-25 mouth. ity of ACID/EPA 00:58: [place] (FISH OIL 08 Medical ORAL) Branch vitamin E 2020-0 Yes 1000U Take 1,000 U nivers 1,000 unit 3-25 Units by ity o f capsule 00:58: mouth [place] 08 daily. Medical Branch Magnesium 2020-0 Yes Take by [facility] ers 250 mg Tab 3-25 mouth. ity of 00:58: [place] 08 Medical Branch vitamin B-6 2020-0 Yes 100mg Take 100 U nivers (VITAMIN 3-25 mg by ity of B-6) 100 mg 00:58: mouth [place] tablet 08 daily. Medical Branch CALCIUM 2020-0 Yes Take by Univer s CARBONATE/V 3-25 mouth. ity of ITAMIN D3 00:58: [place] (VITAMIN 08 Medical D-3 ORAL) Branch oxyCODONE-a 2020-0 Yes 1{tbl} Take 1 [place] cetaminophe 3-25 tablet by ity of n 7.5-325 00:58: mouth 2 [place] mg per 08 (two) Medical tablet times Branch daily as needed for Pain. alcaftadine 2020-[address] in U nivers (LASTACAFT) 3-25 each eye. ity of 0.25 % Drop 00:58: [place] 08 Medical Branch CYCLOSPORIN 2020-[address] in U nivers E (RESTASIS 3-25 each eye. ity of OPHTHALMIC) 00:58: [place] 08 Medical Branch ASCORBATE 2020-0 Yes Take by Univ ers CALCIUM 3-25 mouth. ity of (VITAMIN C 00:58: [place] ORAL) 08 [facility] DOCOSAHEXAN 2020-0 Yes Take by [facility] 3-25 mouth. ity of ACID/EPA 00:58: [place] (FISH OIL 08 Medical ORAL) Branch vitamin E 2020-0 Yes 1000U Take 1,000 [facility] 1,000 unit 3-25 Units by ity o f capsule 00:58: mouth [place] 08 daily. Medical Branch Magnesium 2020-0 Yes Take by [facility] ers 250 mg Tab 3-25 mouth. ity of 00:58: [place] 08 [facility] vitamin B-6 2020-0 Yes 100mg Take 100 [facility] (VITAMIN 3-25 mg by ity of B-6) 100 mg 00:58: mouth [place] tablet 08 daily. Medical Branch CALCIUM 2020-0 [facility] [place] [facility]V 3-25 mouth. ity of ITAMIN D3 00:58: [place] (VITAMIN 08 Medical D-3 ORAL) Branch oxyCODONE-a 2020-0 Yes 1{tbl} Take 1 [facility] cetaminophe 3-25 tablet by ity of n 7.5-325 00:58: mouth 2 [place] mg per 08 (two) Medical tablet times Branch daily as needed for Pain. alcaftadine 2020-[address] in [facility] (LASTACAFT) 3-25 each eye. ity of 0.25 % Drop 00:58: [place] 08 [facility] CYCLOSPORIN 2020-[address] in [facility] E (RESTASIS 3-25 each eye. ity of OPHTHALMIC) 00:58: [place] 08 [facility] Branch ASCORBATE 2020-0 Yes Take by [facility] CALCIUM 3-25 mouth. ity of (VITAMIN C 00:58: [place] ORAL) 08 [facility] Branch DOCOSAHEXAN 2020-0 Yes Take by [facility] 3-25 mouth. ity of ACID/EPA 00:58: [place] (FISH OIL 08 Medical ORAL) Branch vitamin E 2020-0 Yes 1000U Take 1,000 [facility] 1,000 unit 3-25 Units by ity o f capsule 00:58: mouth [place] 08 daily. Medical Branch Magnesium 2020-0 Yes Take by [facility] 250 mg Tab 3-25 mouth. ity of 00:58: 08 Medical Branch vitamin B-6 2020-0 Yes 100mg Take 100 [facility] (VITAMIN 3-25 mg by ity of B-6) 100 mg 00:58: mouth [place] tablet 08 daily. Medical Branch CALCIUM 2020-0 Yes Take by [facility] CARBONATE/V 3-25 mouth. ity of ITAMIN D3 00:58: (VITAMIN 08 Medical D-3 ORAL) Branch oxyCODONE-a 2020-0 Yes 1{tbl} Take 1 [facility] cetaminophe 3-25 tablet by ity of n 7.5-325 00:58: mouth 2 [place] mg per 08 (two) Medical tablet times Branch daily as needed for Pain. alcaftadine 2020-[address] in [facility] (LASTACAFT) 3-25 each eye. ity of 0.25 % Drop 00:58: 08 Medical Branch CYCLOSPORIN 2020-[address] in [facility] E (RESTASIS 3-25 each eye. ity of OPHTHALMIC) 00:58: 08 [facility] Branch ASCORBATE 2020-0 Yes Take by [facility] CALCIUM 3-25 mouth. ity of (VITAMIN C 00:58: [place] ORAL) 08 Medical Branch DOCOSAHEXAN 2020-0 Yes Take by [facility] 3-25 mouth. ity of ACID/EPA 00:58: [place] (FISH OIL 08 Medical ORAL) Branch vitamin E 2020-0 Yes 1000U Take 1,000 [facility] 1,000 unit 3-25 Units by ity o f capsule 00:58: mouth [place] 08 daily. Medical Branch Magnesium 2020-0 Yes Take by [facility] 250 mg Tab 3-25 mouth. ity of 00:58: 08 Medical Branch vitamin B-6 2020-0 Yes 100mg Take 100 [facility] (VITAMIN 3-25 mg by ity of B-6) 100 mg 00:58: mouth [place] tablet 08 daily. Medical Branch CALCIUM 2020-0 Yes Take by [facility] CARBONATE/V 3-25 mouth. ity of ITAMIN D3 00:58: (VITAMIN 08 Medical D-3 ORAL) Branch oxyCODONE-a 2020-0 Yes 1{tbl} Take 1 [facility] cetaminophe 3-25 tablet by ity of n 7.5-325 00:58: mouth 2 [place] mg per 08 (two) Medical tablet times Branch daily as needed for Pain. alcaftadine 2020-[address] in [facility] (LASTACAFT) 3-25 each eye. ity of 0.25 % Drop 00:58: [place] 08 [facility] Branch CYCLOSPORIN 2020-[address] in [facility] E (RESTASIS 3-25 each eye. ity of OPHTHALMIC) 00:58: 08 Medical Branch ASCORBATE 2020-0 Yes Take by [facility] CALCIUM 3-25 mouth. ity of (VITAMIN C 00:58: [place] ORAL) 08 Medical Branch DOCOSAHEXAN 2020-0 Yes Take by [facility] 3-25 mouth. ity of ACID/EPA 00:58: [place] (FISH OIL 08 Medical ORAL) Branch vitamin E 2020-0 Yes 1000U Take 1,000 [facility] 1,000 unit 3-25 Units by ity o f capsule 00:58: mouth [place] 08 daily. Medical Branch Magnesium 2020-0 Yes Take by [facility] 250 mg Tab 3-25 mouth. ity of 00:58: 08 Medical Branch vitamin B-6 2020-0 Yes 100mg Take 100 [facility] (VITAMIN 3-25 mg by ity of B-6) 100 mg 00:58: mouth [place] tablet 08 daily. Medical Branch CALCIUM 2020-0 Yes Take by [facility] CARBONATE/V 3-25 mouth. ity of ITAMIN D3 00:58: (VITAMIN 08 Medical D-3 ORAL) Branch oxyCODONE-a 2020-0 Yes 1{tbl} Take 1 [facility] cetaminophe 3-25 tablet by ity of n 7.5-325 00:58: mouth 2 [place] mg per 08 (two) Medical tablet times Branch daily as needed for Pain. alcaftadine 2020-[address] in [facility] (LASTACAFT) 3-25 each eye. ity of 0.25 % Drop 00:58: 08 Medical Branch CYCLOSPORIN 2020-[address] in [facility] E (RESTASIS 3-25 each eye. ity of OPHTHALMIC) 00:58: 08 [facility] Branch ASCORBATE 2020-0 Yes Take by [facility] CALCIUM 3-25 mouth. ity of (VITAMIN C 00:58: [place] ORAL) 08 Medical Branch DOCOSAHEXAN 2020-0 Yes Take by [facility] 3-25 mouth. ity of ACID/EPA 00:58: [place] (FISH OIL 08 Medical ORAL) Branch vitamin E 2020-0 Yes 1000U Take 1,000 [facility] 1,000 unit 3-25 Units by ity o f capsule 00:58: mouth [place] 08 daily. Medical Branch Magnesium 2020-0 Yes Take by [facility] 250 mg Tab 3-25 mouth. ity of 00:58: [place] 08 [facility] Branch vitamin B-6 2020-0 Yes 100mg Take 100 [facility] (VITAMIN 3-25 mg by ity of B-6) 100 mg 00:58: mouth [place] tablet 08 daily. Medical Branch CALCIUM 2020-0 Yes Take by [facility] CARBONATE/V 3-25 mouth. ity of ITAMIN D3 00:58: [place] (VITAMIN 08 Medical D-3 ORAL) Branch oxyCODONE-a 2020-0 Yes 1{tbl} Take 1 [facility] cetaminophe 3-25 tablet by ity of n 7.5-325 00:58: mouth 2 [place] mg per 08 (two) Medical tablet times Branch daily as needed for Pain. alcaftadine 2020-[address] in [facility] (LASTACAFT) 3-25 each eye. ity of 0.25 % Drop 00:58: 08 Medical Branch CYCLOSPORIN 2020-[address] in [facility] E (RESTASIS 3-25 each eye. ity of OPHTHALMIC) 00:58: [place] 08 [facility] Branch ASCORBATE 2020-0 Yes Take by [facility] CALCIUM 3-25 mouth. ity of (VITAMIN C 00:58: [place] ORAL) 08 Medical Branch DOCOSAHEXAN 2020-0 Yes Take by [facility] 3-25 mouth. ity of ACID/EPA 00:58: [place] (FISH OIL 08 Medical ORAL) Branch vitamin E 2020-0 Yes 1000U Take 1,000 [facility] 1,000 unit 3-25 Units by ity o f capsule 00:58: mouth [place] 08 daily. Medical Branch Magnesium 2020-0 Yes Take by [facility] 250 mg Tab 3-25 mouth. ity of 00:58: [place] 08 [facility] Branch vitamin B-6 2020-0 Yes 100mg Take 100 [facility] (VITAMIN 3-25 mg by ity of B-6) 100 mg 00:58: mouth [place] tablet 08 daily. Medical Branch CALCIUM 2020-0 Yes Take by [facility] CARBONATE/V 3-25 mouth. ity of ITAMIN D3 00:58: [place] (VITAMIN 08 Medical D-3 ORAL) Branch oxyCODONE-a 2020-0 Yes 1{tbl} Take 1 [facility] cetaminophe 3-25 tablet by ity of n 7.5-325 00:58: mouth 2 [place] mg per 08 (two) Medical tablet times Branch daily as needed for Pain. alcaftadine 2020-[address] in [facility] (LASTACAFT) 3-25 each eye. ity of 0.25 % Drop 00:58: [place] 08 [facility] Branch CYCLOSPORIN 2020-[address] in [facility] E (RESTASIS 3-25 each eye. ity of OPHTHALMIC) 00:58: 08 Medical Branch ASCORBATE 2020-0 Yes Take by [facility] ers CALCIUM 3-25 mouth. ity of (VITAMIN C 00:58: [place] ORAL) 08 Medical Branch DOCOSAHEXAN 2020-0 Yes Take by [facility] 3-25 mouth. ity of ACID/EPA 00:58: [place] (FISH OIL 08 Medical ORAL) Branch vitamin E 2020-0 Yes 1000U Take 1,000 [facility] 1,000 unit 3-25 Units by ity o f capsule 00:58: mouth [place] 08 daily. Medical Branch Magnesium 2020-0 Yes Take by [facility] ers 250 mg Tab 3-25 mouth. ity of 00:58: [place] 08 Medical Branch vitamin B-6 2020-0 Yes 100mg Take 100 [facility] (VITAMIN 3-25 mg by ity of B-6) 100 mg 00:58: mouth [place] tablet 08 daily. Medical Branch CALCIUM 2020-0 [facility] [place] [facility] 3-25 mouth. ity of ITAMIN D3 00:58: (VITAMIN 08 Medical D-3 ORAL) Branch oxyCODONE-a 2020-0 Yes 1{tbl} Take 1 [facility] cetaminophe 3-25 tablet by ity of n 7.5-325 00:58: mouth 2 [place] mg per 08 (two) Medical tablet times Branch daily as needed for Pain. alcaftadine 2020-[address] in [facility] (LASTACAFT) 3-25 each eye. ity of 0.25 % Drop 00:58: 08 Medical Branch CYCLOSPORIN 2020-[address] in [facility] E (RESTASIS 3-25 each eye. ity of OPHTHALMIC) 00:58: [place] 08 Medical Branch ASCORBATE 2020-0 Yes Take by [facility] ers CALCIUM 3-25 mouth. ity of (VITAMIN C 00:58: [place] ORAL) 08 Medical Branch DOCOSAHEXAN 2020-0 Yes Take by [facility] 3-25 mouth. ity of ACID/EPA 00:58: [place] (FISH OIL 08 Medical ORAL) Branch vitamin E 2020-0 Yes 1000U Take 1,000 [facility] 1,000 unit 3-25 Units by ity o f capsule 00:58: mouth [place] 08 daily. Medical Branch Magnesium 2020-0 Yes Take by [facility] 250 mg Tab 3-25 mouth. ity of 00:58: [place] 08 Medical Branch vitamin B-6 2020-0 Yes 100mg Take 100 [facility] (VITAMIN 3-25 mg by ity of B-6) 100 mg 00:58: mouth [place] tablet 08 daily. Medical Branch CALCIUM 2020-0 Yes Take by [facility] CARBONATE/V 3-25 mouth. ity of ITAMIN D3 00:58: [place] (VITAMIN 08 Medical D-3 ORAL) Branch oxyCODONE-a 2020-0 Yes 1{tbl} Take 1 [facility] cetaminophe 3-25 tablet by ity of n 7.5-325 00:58: mouth 2 [place] mg per 08 (two) Medical tablet times Branch daily as needed for Pain. alcaftadine 2020-[address] in [facility] (LASTACAFT) 3-25 each eye. ity of 0.25 % Drop 00:58: [place] 08 Medical Branch CYCLOSPORIN 2020-[address] in [facility] E (RESTASIS 3-25 each eye. ity of OPHTHALMIC) 00:58: [place] 08 Medical Branch ASCORBATE 2020-0 Yes Take by [facility] CALCIUM 3-25 mouth. ity of (VITAMIN C 00:58: [place] ORAL) 08 Medical Branch DOCOSAHEXAN 2020-0 Yes Take by [facility] 3-25 mouth. ity of ACID/EPA 00:58: [place] (FISH OIL 08 Medical ORAL) Branch vitamin E 2020-0 Yes 1000U Take 1,000 [facility] 1,000 unit 3-25 Units by ity o f capsule 00:58: mouth [place] 08 daily. Medical Branch Magnesium 2020-0 Yes Take by [facility] 250 mg Tab 3-25 mouth. ity of 00:58: 08 Medical Branch vitamin B-6 2020-0 Yes 100mg Take 100 [facility] (VITAMIN 3-25 mg by ity of B-6) 100 mg 00:58: mouth [place] tablet 08 daily. Medical Branch CALCIUM 2020-0 Yes Take by [facility] CARBONATE/V 3-25 mouth. ity of ITAMIN D3 00:58: (VITAMIN 08 Medical D-3 ORAL) Branch oxyCODONE-a 2020-0 Yes 1{tbl} Take 1 [facility] cetaminophe 3-25 tablet by ity of n 7.5-325 00:58: mouth 2 [place] mg per 08 (two) Medical tablet times Branch daily as needed for Pain. alcaftadine 2020-[address] in [facility] (LASTACAFT) 3-25 each eye. ity of 0.25 % Drop 00:58: 08 Medical Branch CYCLOSPORIN 2020-[address] in [facility] E (RESTASIS 3-25 each eye. ity of OPHTHALMIC) 00:58: 08 Medical Branch ASCORBATE 2020-0 Yes Take by [facility] CALCIUM 3-25 mouth. ity of (VITAMIN C 00:58: [place] ORAL) 08 Medical Branch DOCOSAHEXAN 2020-0 Yes Take by [facility] 3-25 mouth. ity of ACID/EPA 00:58: (FISH OIL 08 Medical ORAL) Branch vitamin E 2020-0 Yes 1000U Take 1,000 [facility] 1,000 unit 3-25 Units by ity o f capsule 00:58: mouth [place] 08 daily. Medical Branch Magnesium 2020-0 Yes Take by [facility] 250 mg Tab 3-25 mouth. ity of 00:58: 08 Medical Branch vitamin B-6 2020-0 Yes 100mg Take 100 [facility] (VITAMIN 3-25 mg by ity of B-6) 100 mg 00:58: mouth [place] tablet 08 daily. Medical Branch CALCIUM 2020-0 Yes Take by [facility] CARBONATE/V 3-25 mouth. ity of ITAMIN D3 00:58: (VITAMIN 08 Medical D-3 ORAL) Branch oxyCODONE-a 2020-0 Yes 1{tbl} Take 1 [facility] cetaminophe 3-25 tablet by ity of n 7.5-325 00:58: mouth 2 [place] mg per 08 (two) Medical tablet times Branch daily as needed for Pain. alcaftadine 2020-[address] in [facility] (LASTACAFT) 3-25 each eye. ity of 0.25 % Drop 00:58: [place] 08 Medical Branch CYCLOSPORIN 2020-[address] in [facility] E (RESTASIS 3-25 each eye. ity of OPHTHALMIC) 00:58: [place] 08 [facility] Branch ASCORBATE 2020-0 Yes Take by [facility] CALCIUM 3-25 mouth. ity of (VITAMIN C 00:58: [place] ORAL) 08 Medical Branch DOCOSAHEXAN 2020-0 Yes Take by [facility] 3-25 mouth. ity of ACID/EPA 00:58: [place] (FISH OIL 08 Medical ORAL) Branch vitamin E 2020-0 Yes 1000U Take 1,000 [facility] 1,000 unit 3-25 Units by ity o f capsule 00:58: mouth [place] 08 daily. Medical Branch Magnesium 2020-0 Yes Take by [facility] 250 mg Tab 3-25 mouth. ity of 00:58: [place] 08 Medical Branch vitamin B-6 2020-0 Yes 100mg Take 100 [facility] (VITAMIN 3-25 mg by ity of B-6) 100 mg 00:58: mouth [place] tablet 08 daily. Medical Branch CALCIUM 2020-0 Yes Take by [facility] CARBONATE/V 3-25 mouth. ity of ITAMIN D3 00:58: [place] (VITAMIN 08 Medical D-3 ORAL) Branch oxyCODONE-a 2020-0 Yes 1{tbl} Take 1 [facility] cetaminophe 3-25 tablet by ity of n 7.5-325 00:58: mouth 2 [place] mg per 08 (two) Medical tablet times Branch daily as needed for Pain. alcaftadine 2020-[address] in [facility] (LASTACAFT) 3-25 each eye. ity of 0.25 % Drop 00:58: [place] 08 Medical Branch CYCLOSPORIN 2020-[address] in [facility] E (RESTASIS 3-25 each eye. ity of OPHTHALMIC) 00:58: [place] 08 Medical Branch ASCORBATE 2020-0 Yes Take by [facility] CALCIUM 3-25 mouth. ity of (VITAMIN C 00:58: [place] ORAL) 08 Medical Branch DOCOSAHEXAN 2020-0 Yes Take by [facility] 3-25 mouth. ity of ACID/EPA 00:58: [place] (FISH OIL 08 Medical ORAL) Branch vitamin E 2020-0 Yes 1000U Take 1,000 [facility] 1,000 unit 3-25 Units by ity o f capsule 00:58: mouth [place] 08 daily. Medical Branch Magnesium 2020-0 Yes Take by [facility] 250 mg Tab 3-25 mouth. ity of 00:58: [place] 08 Medical Branch vitamin B-6 2020-0 Yes 100mg Take 100 [facility] (VITAMIN 3-25 mg by ity of B-6) 100 mg 00:58: mouth [place] tablet 08 daily. Medical Branch CALCIUM 2020-0 Yes Take by [facility] CARBONATE/V 3-25 mouth. ity of ITAMIN D3 00:58: [place] (VITAMIN 08 Medical D-3 ORAL) Branch oxyCODONE-a 2020-0 Yes 1{tbl} Take 1 [facility] cetaminophe 3-25 tablet by ity of n 7.5-325 00:58: mouth 2 [place] mg per 08 (two) Medical tablet times Branch daily as needed for Pain. alcaftadine 2020-[address] in [facility] (LASTACAFT) 3-25 each eye. ity of 0.25 % Drop 00:58: 08 Medical Branch CYCLOSPORIN 2020-[address] in [facility] E (RESTASIS 3-25 each eye. ity of OPHTHALMIC) 00:58: 08 Medical Branch ASCORBATE 2020-0 Yes Take by [facility] CALCIUM 3-25 mouth. ity of (VITAMIN C 00:58: [place] ORAL) 08 Medical Branch DOCOSAHEXAN 2020-0 Yes Take by [facility] 3-25 mouth. ity of ACID/EPA 00:58: [place] (FISH OIL 08 Medical ORAL) Branch vitamin E 2020-0 Yes 1000U Take 1,000 [facility] 1,000 unit 3-25 Units by ity o f capsule 00:58: mouth [place] 08 daily. Medical Branch Magnesium 2020-0 Yes Take by [facility] 250 mg Tab 3-25 mouth. ity of 00:58: [place] 08 Medical Branch vitamin B-6 2020-0 Yes 100mg Take 100 [facility] (VITAMIN 3-25 mg by ity of B-6) 100 mg 00:58: mouth [place] tablet 08 daily. Medical Branch CALCIUM 2020-0 Yes Take by [facility] CARBONATE/V 3-25 mouth. ity of ITAMIN D3 00:58: [place] (VITAMIN 08 Medical D-3 ORAL) Branch oxyCODONE-a 2020-0 Yes 1{tbl} Take 1 [facility] [place] cetaminophe 3-25 tablet by ity of n 7.5-325 00:58: mouth 2 [place] mg per 08 (two) Medical tablet times Branch daily as needed for Pain. alcaftadine 2020-[address] in [facility] (LASTACAFT) 3-25 each eye. ity of 0.25 % Drop 00:58: [place] 08 Medical Branch CYCLOSPORIN 2020-[address] in [facility] E (RESTASIS 3-25 each eye. ity of OPHTHALMIC) 00:58: [place] 08 Medical Branch ASCORBATE 2020-0 Yes Take by [facility] CALCIUM 3-25 mouth. ity of (VITAMIN C 00:58: [place] ORAL) 08 Medical Branch DOCOSAHEXAN 2020-0 Yes Take by [facility] 3-25 mouth. ity of ACID/EPA 00:58: [place] (FISH OIL 08 Medical ORAL) Branch vitamin E 2020-0 Yes 1000U Take 1,000 [facility] 1,000 unit 3-25 Units by ity o f capsule 00:58: mouth [place] 08 daily. Medical Branch Magnesium 2020-0 Yes Take by [facility] 250 mg Tab 3-25 mouth. ity of 00:58: [place] 08 Medical Branch vitamin B-6 2020-0 Yes 100mg Take 100 [facility] (VITAMIN 3-25 mg by ity of B-6) 100 mg 00:58: mouth [place] tablet 08 daily. Medical Branch CALCIUM 2020-0 Yes Take by [facility] CARBONATE/V 3-25 mouth. ity of ITAMIN D3 00:58: [place] (VITAMIN 08 Medical D-3 ORAL) Branch oxyCODONE-a 2020-0 Yes 1{tbl} Take 1 [facility] cetaminophe 3-25 tablet by ity of n 7.5-325 00:58: mouth 2 [place] mg per 08 (two) Medical tablet times Branch daily as needed for Pain. alcaftadine 2020-[address] in [facility] (LASTACAFT) 3-25 each eye. ity of 0.25 % Drop 00:58: [place] 08 Medical Branch CYCLOSPORIN 2020-[address] in [facility] E (RESTASIS 3-25 each eye. ity of OPHTHALMIC) 00:58: 08 Medical Branch ASCORBATE 2020-0 Yes Take by [facility] ers CALCIUM 3-25 mouth. ity of (VITAMIN C 00:58: [place] ORAL) 08 Medical Branch DOCOSAHEXAN 2020-0 Yes Take by [facility] 3-25 mouth. ity of ACID/EPA 00:58: [place] (FISH OIL 08 Medical ORAL) Branch vitamin E 2020-0 Yes 1000U Take 1,000 [facility] 1,000 unit 3-25 Units by ity o f capsule 00:58: mouth [place] 08 daily. Medical Branch Magnesium 2020-0 Yes Take by [facility] 250 mg Tab 3-25 mouth. ity of 00:58: [place] 08 Medical Branch vitamin B-6 2020-0 Yes 100mg Take 100 [facility] (VITAMIN 3-25 mg by ity of B-6) 100 mg 00:58: mouth [place] tablet 08 daily. Medical Branch CALCIUM 2020-0 Yes Take by [facility] CARBONATE/V 3-25 mouth. ity of ITAMIN D3 00:58: (VITAMIN 08 Medical D-3 ORAL) Branch alcaftadine 2020-[address] in [facility] (LASTACAFT) 3-25 each eye. ity of 0.25 % Drop 00:58: 08 Medical Branch CYCLOSPORIN 2020-[address] in [facility] E (RESTASIS 3-25 each eye. ity of OPHTHALMIC) 00:58: 08 Medical Branch ASCORBATE 2020-0 Yes Take by [facility] ers CALCIUM 3-25 mouth. ity of (VITAMIN C 00:58: [place] ORAL) 08 Medical Branch DOCOSAHEXAN 2020-0 Yes Take by [facility] 3-25 mouth. ity of ACID/EPA 00:58: [place] (FISH OIL 08 Medical ORAL) Branch vitamin E 2020-0 Yes 1000U Take 1,000 [facility] 1,000 unit 3-25 Units by ity o f capsule 00:58: mouth [place] 08 daily. Medical Branch Magnesium 2020-0 Yes Take by [facility] 250 mg Tab 3-25 mouth. ity of 00:58: 08 Medical Branch vitamin B-6 2020-0 Yes 100mg Take 100 [facility] (VITAMIN 3-25 mg by ity of B-6) 100 mg 00:58: mouth [place] tablet 08 daily. Medical Branch CALCIUM 2020-0 Yes Take by [facility] CARBONATE/V 3-25 mouth. ity of ITAMIN D3 00:58: [place] (VITAMIN 08 Medical D-3 ORAL) Branch alcaftadine 2020-[address] in [facility] (LASTACAFT) 3-25 each eye. ity of 0.25 % Drop 00:58: [place] 08 Medical Branch CYCLOSPORIN 2020-[address] in [facility] E (RESTASIS 3-25 each eye. ity of OPHTHALMIC) 00:58: [place] 08 [facility] Branch ASCORBATE 2020-0 Yes Take by [facility] ers CALCIUM 3-25 mouth. ity of (VITAMIN C 00:58: [place] ORAL) 08 Medical Branch DOCOSAHEXAN 2020-0 Yes Take by [facility] 3-25 mouth. ity of ACID/EPA 00:58: [place] (FISH OIL 08 Medical ORAL) Branch vitamin E 2020-0 Yes 1000U Take 1,000 [facility] 1,000 unit 3-25 Units by ity o f capsule 00:58: mouth [place] 08 daily. Medical Branch Magnesium 2020-0 Yes Take by [facility] 250 mg Tab 3-25 mouth. ity of 00:58: [place] 08 [facility] Branch vitamin B-6 2020-0 Yes 100mg Take 100 [facility] (VITAMIN 3-25 mg by ity of B-6) 100 mg 00:58: mouth [place] tablet 08 daily. Medical Branch CALCIUM 2020-0 Yes Take by [facility] CARBONATE/V 3-25 mouth. ity of ITAMIN D3 00:58: [place] (VITAMIN 08 Medical D-3 ORAL) Branch alcaftadine 2020-[address] in [facility] (LASTACAFT) 3-25 each eye. ity of 0.25 % Drop 00:58: [place] 08 [facility] Branch CYCLOSPORIN 2020-[address] in [facility] E (RESTASIS 3-25 each eye. ity of OPHTHALMIC) 00:58: [place] 08 [facility] Branch ASCORBATE 2020-0 Yes Take by [facility] CALCIUM 3-25 mouth. ity of (VITAMIN C 00:58: [place] ORAL) 08 Medical Branch DOCOSAHEXAN 2020-0 Yes Take by [facility] 3-25 mouth. ity of ACID/EPA 00:58: [place] (FISH OIL 08 Medical ORAL) Branch vitamin E 2020-0 Yes 1000U Take 1,000 [facility] 1,000 unit 3-25 Units by ity o f capsule 00:58: mouth [place] 08 daily. Medical Branch Magnesium 2020-0 Yes Take by [facility] 250 mg Tab 3-25 mouth. ity of 00:58: [place] 08 [facility] Branch vitamin B-6 2020-0 Yes 100mg Take 100 [facility] (VITAMIN 3-25 mg by ity of B-6) 100 mg 00:58: mouth [place] tablet 08 daily. Medical Branch CALCIUM 2020-0 Yes Take by [facility] CARBONATE/V 3-25 mouth. ity of ITAMIN D3 00:58: [place] (VITAMIN 08 Medical D-3 ORAL) Branch alcaftadine 2020-[address] in [facility] (LASTACAFT) 3-25 each eye. ity of 0.25 % Drop 00:58: [place] 08 [facility] Branch CYCLOSPORIN 2020-[address] in [facility] E (RESTASIS 3-25 each eye. ity of OPHTHALMIC) 00:58: [place] 08 [facility] Branch ASCORBATE 2020-0 Yes Take by [facility] CALCIUM 3-25 mouth. ity of (VITAMIN C 00:58: [place] ORAL) 08 Medical Branch DOCOSAHEXAN 2020-0 Yes Take by [facility] 3-25 mouth. ity of ACID/EPA 00:58: [place] (FISH OIL 08 Medical ORAL) Branch vitamin E 2020-0 Yes 1000U Take 1,000 [facility] 1,000 unit 3-25 Units by ity o f capsule 00:58: mouth [place] 08 daily. Medical Branch Magnesium 2020-0 Yes Take by [facility] 250 mg Tab 3-25 mouth. ity of 00:58: [place] 08 [facility] Branch vitamin B-6 2020-0 Yes 100mg Take 100 [facility] (VITAMIN 3-25 mg by ity of B-6) 100 mg 00:58: mouth [place] tablet 08 daily. Medical Branch CALCIUM 2020-0 Yes Take by [facility] CARBONATE/V 3-25 mouth. ity of ITAMIN D3 00:58: [place] (VITAMIN 08 Medical D-3 ORAL) Branch alcaftadine 2020-[address] in [facility] (LASTACAFT) 3-25 each eye. ity of 0.25 % Drop 00:58: 08 Medical Branch CYCLOSPORIN 2020-[address] in [facility] E (RESTASIS 3-25 each eye. ity of OPHTHALMIC) 00:58: 08 Medical Branch ASCORBATE 2020-0 Yes Take by [facility] CALCIUM 3-25 mouth. ity of (VITAMIN C 00:58: [place] ORAL) 08 Medical Branch DOCOSAHEXAN 2020-0 Yes Take by [facility] O[facility] 3-25 mouth. ity of ACID/EPA 00:58: [place] (FISH OIL 08 Medical ORAL) Branch vitamin E 2020-0 Yes 1000U Take 1,000 [facility] 1,000 unit 3-25 Units by ity o f capsule 00:58: mouth [place] 08 daily. Medical Branch Magnesium 2020-0 Yes Take by [facility] 250 mg Tab 3-25 mouth. ity of 00:58: [place] 08 [facility] Branch vitamin B-6 2020-0 Yes 100mg Take 100 [facility] (VITAMIN 3-25 mg by ity of B-6) 100 mg 00:58: mouth [place] tablet 08 daily. Medical Branch CALCIUM 2020-0 Yes Take by [facility] CARBONATE/V 3-25 mouth. ity of ITAMIN D3 00:58: [place] (VITAMIN 08 Medical D-3 ORAL) Branch alcaftadine 2020-[address] in [facility] (LASTACAFT) 3-25 each eye. ity of 0.25 % Drop 00:58: [place] 08 [facility] Branch CYCLOSPORIN 2020-[address] in [facility] E (RESTASIS 3-25 each eye. ity of OPHTHALMIC) 00:58: [place] 08 [facility] Branch ASCORBATE 2020-0 Yes Take by [facility] ers CALCIUM 3-25 mouth. ity of (VITAMIN C 00:58: [place] ORAL) 08 Medical Branch DOCOSAHEXAN 2020-0 Yes Take by [facility] O[facility] 3-25 mouth. ity of ACID/EPA 00:58: [place] (FISH OIL 08 Medical ORAL) Branch vitamin E 2020-0 Yes 1000U Take 1,000 [facility] 1,000 unit 3-25 Units by ity o f capsule 00:58: mouth [place] 08 daily. Medical Branch Magnesium 2020-0 Yes Take by [facility] 250 mg Tab 3-25 mouth. ity of 00:58: [place] 08 [facility] Branch vitamin B-6 2020-0 Yes 100mg Take 100 [facility] (VITAMIN 3-25 mg by ity of B-6) 100 mg 00:58: mouth [place] tablet 08 daily. Medical Branch CALCIUM 2020-0 Yes Take by [facility] CARBONATE/V 3-25 mouth. ity of ITAMIN D3 00:58: [place] (VITAMIN 08 Medical D-3 ORAL) Branch alcaftadine 2020-[address] in [facility] (LASTACAFT) 3-25 each eye. ity of 0.25 % Drop 00:58: [place] 08 [facility] Branch CYCLOSPORIN 2020-[address] in [facility] E (RESTASIS 3-25 each eye. ity of OPHTHALMIC) 00:58: 08 Medical Branch ASCORBATE 2020-0 Yes Take by [facility] CALCIUM 3-25 mouth. ity of (VITAMIN C 00:58: [place] ORAL) 08 Medical Branch DOCOSAHEXAN 2020-0 Yes Take by [facility] OIC 3-25 mouth. ity of ACID/EPA 00:58: [place] (FISH OIL 08 Medical ORAL) Branch vitamin E 2020-0 Yes 1000U Take 1,000 [facility] 1,000 unit 3-25 Units by ity o f capsule 00:58: mouth [place] 08 daily. Medical Branch Magnesium 2020-0 Yes Take by [facility] 250 mg Tab 3-25 mouth. ity of 00:58: 08 Medical Branch vitamin B-6 2020-0 Yes 100mg Take 100 [facility] (VITAMIN 3-25 mg by ity of B-6) 100 mg 00:58: mouth [place] tablet 08 daily. Medical [facility] CALCIUM 2020-0 [facility]V [facility]-25 mouth. ity of ITAMIN D3 00:58: [place] (VITAMIN 08 Medical D-3 ORAL) Branch alcaftadine 2020-[address] in U nivers (LASTACAFT) 3-25 each eye. ity of 0.25 % Drop 00:58: [place] 08 Medical Branch CYCLOSPORIN 2020-[address] in U nivers E (RESTASIS 3-25 each eye. ity of OPHTHALMIC) 00:58: 08 Medical Branch ASCORBATE 2020-0 Yes Take by [facility] ers CALCIUM 3-25 mouth. ity of (VITAMIN C 00:58: [place] ORAL) 08 Medical Branch DOCOSAHEXAN 2020-0 Yes Take by [facility] [place] OIC 3-25 mouth. ity of ACID/EPA 00:58: (FISH OIL 08 Medical ORAL) Branch vitamin E 2020-0 Yes 1000U Take 1,000 U nivers 1,000 unit 3-25 Units by ity o f capsule 00:58: mouth [place] 08 daily. Medical Branch Magnesium 2020-0 Yes Take by Univ ers 250 mg Tab 3-25 mouth. ity of 00:58: 08 Medical Branch vitamin B-6 2020-0 Yes 100mg Take 100 U nivers (VITAMIN 3-25 mg by ity of B-6) 100 mg 00:58: mouth [place] tablet 08 daily. Medical Branch CALCIUM Yes Take by Univer s CARBONATE/V 3-25 mouth. ity of ITAMIN D3 00:58: [place] (VITAMIN 08 Medical D-3 ORAL) Branch oxyCODONE-a Yes 1{tbl} Take 1 [facility] [place] cetaminophe 3-25 tablet by ity of n 7.5-325 00:58: mouth 2 [place] mg per 08 (two) Medical tablet times Branch daily as needed for Pain. levothyroxi 2019- No [id number] 50ug Take 1 [facility] ne 50 mcg 3-25 04-25 tablet by ity of tablet 00:00: 04:59 mouth [place] 00 :00 every Medical morning Branch for 30 days. levothyroxi 2019- No [id number] 50ug Take 1 [facility] ne 50 mcg 3-25 04-25 tablet by ity of tablet 00:00: 04:59 mouth [place] 00 :00 every Medical morning Branch for 30 days. levothyroxi 2019- No [id number] 50ug Take 1 [facility] ne 50 mcg 3-25 04-25 tablet by ity of tablet 00:00: 04:59 mouth [place] 00 :00 every Medical morning Branch for 30 days. levothyroxi 2020- No [id number] 50ug Take 1 [facility] ne 50 mcg 3-25 04-25 tablet by ity of tablet 00:00: 04:59 mouth [place] 00 :00 every Medical morning Branch for 30 days. levothyroxi 2020- No [id number] 50ug Take 1 [facility] ne 50 mcg 3-25 04-25 tablet by ity of tablet 00:00: 04:59 mouth [place] 00 :00 every Medical morning Branch for 30 days. levothyroxi 2020- No [id number] 50ug Take 1 [facility] ne 50 mcg 3-25 04-25 tablet by ity of tablet 00:00: 04:59 mouth [place] 00 :00 every Medical morning Branch for 30 days. levothyroxi 2020- No [id number] 50ug Take 1 [facility] ne 50 mcg 3-25 04-25 tablet by ity of tablet 00:00: 04:59 mouth [place] 00 :00 every Medical morning Branch for 30 days. levothyroxi 2020- No [id number] 50ug Take 1 [facility] ne 50 mcg 3-25 04-20 tablet by ity of tablet 00:00: 00:00 mouth [place] 00 :00 every Medical morning Branch for 30 days. METFORMIN 2020-0 Yes [id number] TAKE 1 [facility] [place] ER 500 mg 3-24 TABLET BY ity o f 24 hr 00:00: MOUTH [place] tablet 00 EVERY DAY Medical WITH Branch BREAKFAST METFORMIN 2020-0 Yes [id number] TAKE 1 [facility] [place] ER 500 mg 3-24 TABLET BY ity o f 24 hr 00:00: MOUTH [place] tablet 00 EVERY DAY Medical WITH Branch BREAKFAST METFORMIN 2020-0 Yes [id number] TAKE 1 [facility] [place] ER 500 mg 3-24 TABLET BY ity o f 24 hr 00:00: MOUTH [place] tablet 00 EVERY DAY Medical WITH Branch BREAKFAST METFORMIN 2020-0 Yes [id number] TAKE 1 [facility] [place] ER 500 mg 3-24 TABLET BY ity o f 24 hr 00:00: MOUTH [place] tablet 00 EVERY DAY Medical WITH Branch BREAKFAST METFORMIN 2020-0 Yes [id number] TAKE 1 [facility] [place] ER 500 mg 3-24 TABLET BY ity o f 24 hr 00:00: MOUTH [place] tablet 00 EVERY DAY Medical WITH Branch BREAKFAST METFORMIN 2020-0 Yes [id number] TAKE 1 [facility] [place] ER 500 mg 3-24 TABLET BY ity o f 24 hr 00:00: MOUTH [place] tablet 00 EVERY DAY Medical WITH Branch BREAKFAST METFORMIN 2020-0 Yes [id number] TAKE 1 [facility] [place] ER 500 mg 3-24 TABLET BY ity o f 24 hr 00:00: MOUTH [place] tablet 00 EVERY DAY Medical WITH Branch BREAKFAST METFORMIN 2020-0 Yes [id number] TAKE 1 [facility] [place] ER 500 mg 3-24 TABLET BY ity o f 24 hr 00:00: MOUTH [place] tablet 00 EVERY DAY Medical WITH Branch BREAKFAST METFORMIN 2020-0 Yes [id number] TAKE 1 [facility] [place] ER 500 mg 3-24 TABLET BY ity o f 24 hr 00:00: MOUTH [place] tablet 00 EVERY DAY Medical WITH Branch BREAKFAST METFORMIN 2020-0 Yes [id number] TAKE 1 [facility] [place] ER 500 mg 3-24 TABLET BY ity o f 24 hr 00:00: MOUTH [place] tablet 00 EVERY DAY Medical WITH Branch BREAKFAST METFORMIN 2020-0 Yes [id number] TAKE 1 [facility] [place] ER 500 mg 3-24 TABLET BY ity o f 24 hr 00:00: MOUTH [place] tablet 00 EVERY DAY Medical WITH Branch BREAKFAST METFORMIN 2020-0 Yes [id number] TAKE 1 [facility] [place] ER 500 mg 3-24 TABLET BY ity o f 24 hr 00:00: MOUTH [place] tablet 00 EVERY DAY Medical WITH Branch BREAKFAST METFORMIN 2020-0 Yes [id number] TAKE 1 [facility] [place] ER 500 mg 3-24 TABLET BY ity o f 24 hr 00:00: MOUTH [place] tablet 00 EVERY DAY Medical WITH Branch BREAKFAST METFORMIN 2020-0 Yes [id number] TAKE 1 [facility] [place] ER 500 mg 3-24 TABLET BY ity o f 24 hr 00:00: MOUTH [place] tablet 00 EVERY DAY Medical WITH Branch BREAKFAST METFORMIN 2020-0 Yes [id number] TAKE 1 [facility] [place] ER 500 mg 3-24 TABLET BY ity o f 24 hr 00:00: MOUTH [place] tablet 00 EVERY DAY Medical WITH Branch BREAKFAST METFORMIN 2020-0 Yes [id number] TAKE 1 [facility] [place] ER 500 mg 3-24 TABLET BY ity o f 24 hr 00:00: MOUTH [place] tablet 00 EVERY DAY Medical WITH Branch BREAKFAST METFORMIN 2020-0 Yes [id number] TAKE 1 [facility] [place] ER 500 mg 3-24 TABLET BY ity o f 24 hr 00:00: MOUTH [place] tablet 00 EVERY DAY Medical WITH Branch BREAKFAST METFORMIN 2020-0 Yes [id number] TAKE 1 [facility] [place] ER 500 mg 3-24 TABLET BY ity o f 24 hr 00:00: MOUTH [place] tablet 00 EVERY DAY Medical WITH Branch BREAKFAST METFORMIN 2020-0 Yes [id number] TAKE 1 [facility] [place] ER 500 mg 3-24 TABLET BY ity o f 24 hr 00:00: MOUTH [place] tablet 00 EVERY DAY Medical WITH Branch BREAKFAST METFORMIN 2020-0 Yes [id number] TAKE 1 [facility] [place] ER 500 mg 3-24 TABLET BY ity o f 24 hr 00:00: MOUTH [place] tablet 00 EVERY DAY Medical WITH Branch BREAKFAST METFORMIN 2020-0 Yes [id number] TAKE 1 [facility] [place] ER 500 mg 3-24 TABLET BY ity o f 24 hr 00:00: MOUTH [place] tablet 00 EVERY DAY Medical WITH Branch BREAKFAST METFORMIN 2020-0 Yes [id number] TAKE 1 [facility] [place] ER 500 mg 3-24 TABLET BY ity o f 24 hr 00:00: MOUTH [place] tablet 00 EVERY DAY Medical WITH Branch BREAKFAST METFORMIN 2020-0 Yes [id number] TAKE 1 [facility] [place] ER 500 mg 3-24 TABLET BY ity o f 24 hr 00:00: MOUTH [place] tablet 00 EVERY DAY Medical WITH Branch BREAKFAST METFORMIN 2020-0 Yes [id number] TAKE 1 [facility] [place] ER 500 mg 3-24 TABLET BY ity o f 24 hr 00:00: MOUTH [place] tablet 00 EVERY DAY Medical WITH Branch BREAKFAST METFORMIN 2020-0 Yes [id number] TAKE 1 [facility] [place] ER 500 mg 3-24 TABLET BY ity o f 24 hr 00:00: MOUTH [place] tablet 00 EVERY DAY Medical WITH Branch BREAKFAST METFORMIN 2020-0 Yes [id number] TAKE 1 [facility] [place] ER 500 mg 3-24 TABLET BY ity o f 24 hr 00:00: MOUTH [place] tablet 00 EVERY DAY Medical WITH Branch BREAKFAST METFORMIN 2020-0 Yes [id number] TAKE 1 [facility] [place] ER 500 mg 3-24 TABLET BY ity o f 24 hr 00:00: MOUTH [place] tablet 00 EVERY DAY Medical WITH Branch BREAKFAST METFORMIN 2020-0 Yes [id number] TAKE 1 [facility] [place] ER 500 mg 3-24 TABLET BY ity o f 24 hr 00:00: MOUTH [place] tablet 00 EVERY DAY Medical WITH Branch BREAKFAST METFORMIN 2020-0 Yes [id number] TAKE 1 [facility] [place] ER 500 mg 3-24 TABLET BY ity o f 24 hr 00:00: MOUTH [place] tablet 00 EVERY DAY Medical WITH Branch BREAKFAST METFORMIN 2020-0 Yes [id number] TAKE 1 [facility] [place] ER 500 mg 3-24 TABLET BY ity o f 24 hr 00:00: MOUTH [place] tablet 00 EVERY DAY Medical WITH Branch BREAKFAST METFORMIN 2020-0 Yes [id number] TAKE 1 [facility] [place] ER 500 mg 3-24 TABLET BY ity o f 24 hr 00:00: MOUTH [place] tablet 00 EVERY DAY Medical WITH Branch BREAKFAST METFORMIN 2020-0 Yes [id number] TAKE 1 [facility] [place] ER 500 mg 3-24 TABLET BY ity o f 24 hr 00:00: MOUTH [place] tablet 00 EVERY DAY Medical WITH Branch BREAKFAST METFORMIN 2020-0 Yes [id number] TAKE 1 [facility] [place] ER 500 mg 3-24 TABLET BY ity o f 24 hr 00:00: MOUTH [place] tablet 00 EVERY DAY Medical WITH Branch BREAKFAST METFORMIN 2020-0 Yes [id number] TAKE 1 [facility] [place] ER 500 mg 3-24 TABLET BY ity o f 24 hr 00:00: MOUTH [place] tablet 00 EVERY DAY Medical WITH Branch BREAKFAST METFORMIN 2020-0 Yes [id number] TAKE 1 [facility] [place] ER 500 mg 3-24 TABLET BY ity o f 24 hr 00:00: MOUTH [place] tablet 00 EVERY DAY Medical WITH Branch BREAKFAST METFORMIN 2020-0 Yes [id number] TAKE 1 [facility] [place] ER 500 mg 3-24 TABLET BY ity o f 24 hr 00:00: MOUTH [place] tablet 00 EVERY DAY Medical WITH Branch BREAKFAST METFORMIN 2020-0 Yes [id number] TAKE 1 [facility] [place] ER 500 mg 3-24 TABLET BY ity o f 24 hr 00:00: MOUTH [place] tablet 00 EVERY DAY Medical WITH Branch BREAKFAST METFORMIN 2020-0 Yes [id number] TAKE 1 [facility] [place] ER 500 mg 3-24 TABLET BY ity o f 24 hr 00:00: MOUTH [place] tablet 00 EVERY DAY Medical WITH Branch BREAKFAST METFORMIN 2020-0 Yes [id number] TAKE 1 [facility] [place] ER 500 mg 3-24 TABLET BY ity o f 24 hr 00:00: MOUTH [place] tablet 00 EVERY DAY Medical WITH Branch BREAKFAST METFORMIN 2020-0 2020- No [id number] TAKE 1 U nivers ER 500 mg 3-24 10-05 TABLET BY ity of 24 hr 00:00: 00:00 MOUTH [place] tablet 00 :00 EVERY DAY Medical WITH Branch BREAKFAST METFORMIN 2020-0 2020- No [id number] TAKE 1 U nivers ER 500 mg 3-24 10-05 TABLET BY ity of 24 hr 00:00: 00:00 MOUTH [place] tablet 00 :00 EVERY DAY Medical WITH Branch BREAKFAST apixaban 5 2020-0 2020- No 1293 5mg Take 1 Univ ers mg tablet -10 03-23 tablet by ity of 00:00: 04:59 mouth 2 [place] 00 :00 (two) Medical times Branch daily for 90 days. Then decrease dose to 5 mg bid for 180 days Indication s: treatment to prevent a blood clot in the lung apixaban 5 2020-0 2020- No 1293 5mg Take 1 Univ ers mg tablet -10 03- tablet by ity of 00:00: 04:59 mouth 2 [place] 00 :00 (two) Medical times Branch daily for 90 days. Then decrease dose to 5 mg bid for 180 days Indication s: treatment to prevent a blood clot in the lung apixaban 5 2020-0 2020- No 1293 5mg Take 1 Univ ers mg tablet 3-10 03-23 tablet by ity of 00:00: 04:59 mouth 2 [place] 00 :00 (two) Medical times Branch daily for 90 days. Then decrease dose to 5 mg bid for 180 days Indication s: treatment to prevent a blood clot in the lung apixaban 5 2020-0 2020- No 1293 5mg Take 1 Univ ers mg tablet 3-24 06-23 tablet by ity of 00:00: 04:59 mouth 2 [place] 00 :00 (two) Medical times Branch daily for 90 days. Then decrease dose to 5 mg bid for 180 days Indication s: treatment to prevent a blood clot in the lung apixaban 5 2019-0 2020- No 1293 5mg Take 1 Univ ers mg tablet 12-08-23 tablet by ity of 00:00: 04:59 mouth 2 [place] 00 :00 (two) Medical times Branch daily for 90 days. Then decrease dose to 5 mg bid for 180 days Indication s: treatment to prevent a blood clot in the lung apixaban 5 2019- 2020- No 1293 5mg Take 1 Univ ers mg tablet 12-08- tablet by ity of 00:00: 04:59 mouth 2 [place] 00 :00 (two) Medical times Branch daily for 90 days. Then decrease dose to 5 mg bid for 180 days Indication s: treatment to prevent a blood clot in the lung apixaban 5 2019-2019- No 1293 5mg Take 1 Univ ers mg tablet 12-08 tablet by ity of 00:00: 00:00 mouth 2 [place] 00 :00 (two) Medical times Branch daily for 90 days. Then decrease dose to 5 mg bid for 180 days Indication s: treatment to prevent a blood clot in the lung levoFLOXaci 2019-2019- No [id number] 500mg Take 1 Univers n 500 mg 3-24 -30 tablet by ity o f tablet 00:00: 04:59 mouth [place] 00 :00 every 24 Medical ([facility] ur) hours for 5 days. levoFLOXaci 2019-2019- No [id number] 500mg Take 1 Univers n 500 mg 3-24 -30 tablet by ity o f tablet 00:00: 04:59 mouth [place] 00 :00 every 24 Medical ([facility] ur) hours for 5 days. levoFLOXaci 2019- 2020- No [id number] 500mg Take 1 Univers n 500 mg 3-24 03-30 tablet by ity o f tablet 00:00: 04:59 mouth [place] 00 :00 every 24 Medical ([facility] ur) hours for 5 days. levoFLOXaci 2019-2019- No [id number] 500mg Take 1 Univers n 500 mg 3-24 03-30 tablet by ity o f tablet 00:00: 04:59 mouth [place] 00 :00 every 24 Medical (twenty-fo Branch ur) hours for 5 days. oxyCODONE-a 2020-0 Yes 1{tbl} Take 1 [place] cetaminophe -23 tablet by ity of n 7.5-325 03:06: mouth 2 [place] mg per 26 (two) Medical tablet times Branch daily as needed for Pain. oxyCODONE-a 2020-0 Yes 1{tbl} 1 tablet, Univers cetaminophe - Oral, ity of n 03:06: Q6HPRN, [place] (PERCOCET) 13 Starting Medic al 5-325 mg [facility] per tablet 12/07/19 at 1 tablet 2206, Until Discontinu ed, Pain (scale 7-10) traZODone 2019-0 Yes 100mg 100 mg, Univ ers (DESYREL) - Oral, QHS, ity of tablet 100 02:00: First dose [place] mg 00 on [facility] 12/07/19 at Branch 2100, Until Discontinu ed, Routine levoFLOXaci 2019-0 Yes 750mg 750 mg, IV Univers n in D5W 12-06 Piggyback, ity o f (LEVAQUIN) 18:45: Q24H ABX, [place] 750 mg/150 00 First dose Med ical mL on [facility] Piggyback 12/07/19 at 750 mg 1345, Until Discontinu ed, 150 mL
R lan for Anti-Infec tive: Empiric Therapy for Suspected Infection< br>Empiric Therapy Site: Urine
D uration of therapy: 7 days heparin 2020-0 2020- No 1300U/h at 13 [place] [facility] 12-06 03-24 mL/hr, ity of unit/250 mL 15:00: 22:04 1,300 [place] (Premixed 00 :19 Units/hr Medica l Bag) in ([address] [place] [address] 0.45 % NS mL/hr), IV Infusion, CONTINUOUS , Starting [place] 12/07/19 at 1000, Until 12/09/19 at 1704, Routine triamterene 2020-0 Yes 1{tbl} 1 tablet, Univers -hydrochlor 12-06 Oral, ity of othiazid 14:00: DAILY, [place] (MAXZIDE-25 00 First dose Me dical ) 37.5-25 on [place] Branch mg tablet 1 12/07/19 at tablet 0900, Until Discontinu ed, Routine amLODIPine 2020-0 Yes 2.5mg 2.5 mg, Uni vers (NORVASC) 12-06 Oral, ity of tablet 2.5 14:00: DAILY, [place] mg 00 First dose Medical on [place] Branch 12/07/19 at 0900, Until Discontinu ed, Routine Sliding 2020-0 Yes Subcutaneo Univ ers Scale 12-06 us, TID ity of Insulin - 13:00: MEALS+HS, [place] Aspart 00 First dose Medical (NOVOLOG) + on [facility] Fsbg 12/07/19 at Testing 0800, Until Discontinu ed, Routine omeprazole 2020-0 Yes 40mg 40 mg, Unive rs (PRILOSEC) 12-06 Oral, QAM ity of capsule 40 13:00: WITH [place] mg 00 BREAKFAST, Medical First dose Branch on 12/07/19 at 0800, Until Discontinu ed
Facu lty member approving Non-formul familia medication : KELLY MITTAL
R lan for Non-Formul familia Use: PATIENT CURRENTLY TAKING NONFORMULA RY PRODUCT levothyroxi 2019-0 2020- No 25ug 25 mcg, [place] ne 12-06 03-24 Oral, ity of (SYNTHROID) 11:00: 19:39 QAM-0600, [place] tablet 25 00 :21 First dose Medi kacey mcg on [facility] 12/07/19 at 0600, Until Discontinu ed, Routine glucagon 2020-0 Yes 1mg 1 mg, Univers (GLUCAGEN 12-06 Intramuscu ity of DIAGNOSTIC 10:24: lar, PRN, [place] KIT) 32 Starting Medical injection 1 [place] Branch mg 12/07/19 at 0524, Until Discontinu ed, BASIL, Blood Glucose < or = 70 mg/dL and patient is unable to swallow or has mental changes. dextrose 50 2020-0 Yes 25mL 25 mL, Univ ers % in water 12-06 Slow IV ity of (D50W) 10:24: Push, PRN, [place] injection 32 Starting Medica l 25 mL [place] Branch 12/07/19 at 0524, Until Discontinu ed, BASIL, Blood Glucose < or = 70 mg/dL and patient is unable to swallow or has mental status changes. CYCLOSPORIN 2020-[address] in U nivers E (RESTASIS 12-06 each eye. ity of OPHTHALMIC) 10:23: [place] [address] Medical Branch ASCORBATE 2020-0 Yes Take by [facility] ers CALCIUM - mouth. ity of (VITAMIN C 10:23: [place] ORAL) Medical Branch DOCOSAHEXAN 2019-0 Yes Take by [place] OIC 12-06 mouth. ity of ACID/EPA 10:23: [place] (FISH OIL Medical ORAL) Branch vitamin E Yes 1000U Take 1,000 U nivers 1,000 unit 12-06 Units by ity o f capsule 10:23: mouth [place] 27 daily. Medical Branch Magnesium 2019-0 Yes Take by [facility] ers 250 mg Tab 12-06 mouth. ity of 10:23: [place] [facility] vitamin B-6 Yes 100mg Take 100 U nivers (VITAMIN 3- mg by ity of B-6) 100 mg 10:23: mouth [place] tablet 27 daily. Medical Branch CALCIUM Yes Take by [facility] s CARBONATE/V 12-06 mouth. ity of ITAMIN D3 10:23: [place] (VITAMIN Medical D-3 ORAL) [place] albuterol-i Yes 1{puff} 1 Puff, Univers pratropium 12-06 Inhalation ity of (COMBIVENT 10:20: , Q6HPRN, [place] RESPIMAT) 41 Starting Medica l 20-100 [facility] mcg/actuati 12/07/19 at on inhaler 0520, 1 Puff Until Discontinu ed, Routine, Wheezing, Shortness of Breath hydralAZINE 2019-0 Yes 10mg 10 mg, [place] [facility] ers (APRESOLINE 12-06 Intravenou it y of ) injection 05:40: s, Q6HPRN, [place] 10 mg 38 Starting Medical [facility] 12/07/19 at 0040, Until Discontinu ed, Routine, Hypertensi on acetaminoph 2020-0 Yes 650mg 650 mg, [place] en 12-06 Oral, ity of (TYLENOL) 05:40: Q6HPRN, [place] tablet 650 19 Starting Medic al mg [facility] 12/07/19 at 0040, Until Discontinu ed, Routine, Pain (scale 1-3), Temp > 38.5 C ondansetron 2020-0 Yes 4mg 4 mg, Slow Univers (ZOFRAN 12-06 IV Push, ity of (PF)) 05:22: Q6HPRN, [place] injection 4 26 Starting Medi kacey mg [facility] 12/07/19 at 0022, Until Discontinu ed, Routine, Nausea and Vomiting (N/V) traMADol 2019-0 2020- No 50mg 50 mg, Univer s (ULTRAM) 12-0624 Oral, ity of tablet 50 05:22: 05:21 Q8HPRN, [place] mg 21 :21 Starting Medical [facility] 12/07/19 at 0022, Until 12/09/19 at 0021, Routine, Pain (scale 4-6) alcaftadine 2020-[address] in [facility] (LASTACA) 12-06 each eye. ity of 0.25 % Drop 03:51: [place] 00 [facility] heparin 2020-0 2020- No 1300U/h 1,300 Unive rs 25,000 12-06 Units/hr ity of unit/250 mL 03:45: 10:06 (13 [place] (Premixed 00 :17 mL/hr), IV Medi kacey Bag) in Infusion, Branch NaCl 0.45 % CONTINUOUS weight , Starting based Sat dosing 12/06/19 at DVT/PE 2245, protocol Until [place] 12/07/19 at 0506 heparin 2020-0 2020- No 5000U 5,000 Univers 1000 12-06 Units, IV ity of unit/mL 03:45: 03:45 Push, [place] injection 00 :00 ONCE, 1 Medical Soln 5,000 dose, Sat Bran ch Units 12/06/19 at 2245, Routine iohexol 2020-0 2020- No 120mL 120 mL, Unive rs (OMNIPAQUE 12-06 Intravenou it y of 350 02:45: 02:45 s, ONCE, 1 [place] BULK-150 00 :00 dose, Sat Medica l mL) 12/06/19 at Branch injection 2145, 120 mL Routine ipratropium 2019-0 2020- No 3mL 3 mL, Univ ers -albuterol Inhalation it y of (DUONEB) 02:45: 02:46 , ONCE, 1 [place] 0.5 mg-3 00 :00 dose, Fri Medica l mg(2.5 mg 11/14/19 at Bran ch base)/3 mL 2044, BASIL nebulizer solution 3 mL predniSONE 2020-0 2020- No 60mg 60 mg, Univ ers (DELTASONE) Oral, ity of tablet 60 02:15: 01:25 ONCE, 1 [place] mg 00 :00 dose, Fri Medical 11/14/19 at Branch 2014, BASIL ipratropium 2020-0 2020- No 3mL 3 mL, Univ ers -albuterol Inhalation it y of (DUONEB) 02:15: 01:32 , ONCE, 1 [place] 0.5 mg-3 00 :00 dose, Fri Medica l mg(2.5 mg 11/14/19 at Bran ch base)/3 mL 2014, BASIL nebulizer solution 3 mL azithromyci 2020-0 Yes Univer s n 250 mg 2-29 ity of tablet 00:00: [place] Medical Branch predniSONE 2020-0 Yes 60mg Take 60 mg U nivers 20 mg 2-29 by mouth ity of tablet 00:00: every [place] 00 morning. Medical Branch cefpodoxime 2020-0 Yes 200mg Take 200 U nivers 200 mg 2-29 mg by ity of tablet 00:00: mouth 2 [place] (two) Medical times [place] daily. azithromyci 2020-0 Yes Univer s n 250 mg 2-29 ity of tablet 00:00: [place] Medical Branch predniSONE 2020-0 Yes 60mg Take 60 mg U nivers 20 mg 2-29 by mouth ity of tablet 00:00: every [place] 00 morning. Medical Branch cefpodoxime 2020-0 Yes 200mg Take 200 U nivers 200 mg 2-29 mg by ity of tablet 00:00: mouth 2 [place] (two) Medical times [place] daily. azithromyci 2020-0 Yes Univer s n 250 mg 2-29 ity of tablet 00:00: [place] Medical Branch predniSONE 2020-0 Yes 60mg Take 60 mg U nivers 20 mg 2-29 by mouth ity of tablet 00:00: every [place] 00 morning. Medical Branch cefpodoxime 2020-0 Yes 200mg Take 200 U nivers 200 mg 2-29 mg by ity of tablet 00:00: mouth 2 [place] (two) Medical times Branch daily. azithromyci 2020-0 Yes Univer s n 250 mg 2-29 ity of tablet 00:00: [place] 00 Medical Branch predniSONE 2020-0 Yes 60mg Take 60 mg U nivers 20 mg 2-29 by mouth ity of tablet 00:00: every [place] 00 morning. Medical Branch cefpodoxime 2020-0 Yes 200mg Take 200 U nivers 200 mg 2-29 mg by ity of tablet 00:00: mouth 2 [place] (two) Medical times Branch daily. azithromyci 2020-0 Yes Univer s n 250 mg 2-29 ity of tablet 00:00: [place] 00 Medical Branch predniSONE 2020-0 Yes 60mg Take 60 mg U nivers 20 mg 2-29 by mouth ity of tablet 00:00: every [place] 00 morning. Medical Branch cefpodoxime 2020-0 Yes 200mg Take 200 U nivers 200 mg 2-29 mg by ity of tablet 00:00: mouth 2 [place] (two) Medical times Branch daily. azithromyci 2020-0 Yes Univer s n 250 mg 2-29 ity of tablet 00:00: [place] 00 Medical Branch predniSONE 2020-0 Yes 60mg Take 60 mg U nivers 20 mg 2-29 by mouth ity of tablet 00:00: every [place] morning. Medical Branch cefpodoxime 2020-0 Yes 200mg Take 200 U nivers 200 mg 2-29 mg by ity of tablet 00:00: mouth 2 [place] (two) Medical times Branch daily. azithromyci 2020-0 Yes Univer s n 250 mg 2-29 ity of tablet 00:00: [place] 00 Medical Branch predniSONE 2020-0 Yes 60mg Take 60 mg U nivers 20 mg 2-29 by mouth ity of tablet 00:00: every [place] 00 morning. Medical Branch cefpodoxime 2020-0 Yes 200mg Take 200 U nivers 200 mg 2-29 mg by ity of tablet 00:00: mouth 2 [place] (two) Medical times Branch daily. azithromyci 2020-0 Yes Univer s n 250 mg 2-29 ity of tablet 00:00: [place] 00 Medical Branch predniSONE 2020-0 Yes 60mg Take 60 mg U nivers 20 mg 2-29 by mouth ity of tablet 00:00: every [place] 00 morning. Medical Branch cefpodoxime 2020-0 Yes 200mg Take 200 U nivers 200 mg 2-29 mg by ity of tablet 00:00: mouth 2 [place] (two) Medical times Branch daily. azithromyci 2020-0 Yes Univer s n 250 mg 2-29 ity of tablet 00:00: [place] 00 Medical Branch predniSONE 2020-0 Yes 60mg Take 60 mg U nivers 20 mg 2-29 by mouth ity of tablet 00:00: every [place] 00 morning. Medical Branch cefpodoxime 2020-0 Yes 200mg Take 200 U nivers 200 mg 2-29 mg by ity of tablet 00:00: mouth 2 [place] (two) Medical times Branch daily. azithromyci 2020-0 Yes Univer s n 250 mg 2-29 ity of tablet 00:00: [place] Medical Branch predniSONE 2020-0 Yes 60mg Take 60 mg U nivers 20 mg 2-29 by mouth ity of tablet 00:00: every [place] morning. Medical Branch cefpodoxime 2020-0 Yes 200mg Take 200 U nivers 200 mg 2-29 mg by ity of tablet 00:00: mouth 2 [place] (two) Medical times Branch daily. azithromyci 2020-0 Yes Univer s n 250 mg 2-29 ity of tablet 00:00: [place] 00 Medical Branch predniSONE 2020-0 Yes 60mg Take 60 mg U nivers 20 mg 2-29 by mouth ity of tablet 00:00: every [place] morning. Medical Branch cefpodoxime 2020-0 Yes 200mg Take 200 U nivers 200 mg 2-29 mg by ity of tablet 00:00: mouth 2 [place] (two) Medical times Branch daily. azithromyci 2020-0 Yes Univer s n 250 mg 2-29 ity of tablet 00:00: [place] 00 Medical Branch predniSONE 2020-0 Yes 60mg Take 60 mg U nivers 20 mg 2-29 by mouth ity of tablet 00:00: every [place] 00 morning. Medical Branch cefpodoxime 2020-0 Yes 200mg Take 200 U nivers 200 mg 2-29 mg by ity of tablet 00:00: mouth 2 [place] (two) Medical times Branch daily. azithromyci 2020-0 Yes Univer s n 250 mg 2-29 ity of tablet 00:00: [place] 00 Medical Branch predniSONE 2020-0 Yes 60mg Take 60 mg U nivers 20 mg 2-29 by mouth ity of tablet 00:00: every [place] 00 morning. Medical Branch cefpodoxime 2020-0 Yes 200mg Take 200 U nivers 200 mg 2-29 mg by ity of tablet 00:00: mouth 2 [place] (two) Medical times Branch daily. azithromyci 2020-0 Yes Univer s n 250 mg 2-29 ity of tablet 00:00: [place] 00 Medical Branch predniSONE 2020-0 Yes 60mg Take 60 mg U nivers 20 mg 2-29 by mouth ity of tablet 00:00: every [place] 00 morning. Medical Branch cefpodoxime 2020-0 Yes 200mg Take 200 U nivers 200 mg 2-29 mg by ity of tablet 00:00: mouth 2 [place] (two) Medical times Branch daily. azithromyci 2020-0 Yes Univer s n 250 mg 2-29 ity of tablet 00:00: [place] 00 Medical Branch predniSONE 2020-0 Yes 60mg Take 60 mg U nivers 20 mg 2-29 by mouth ity of tablet 00:00: every [place] morning. Medical Branch cefpodoxime 2020-0 Yes 200mg Take 200 U nivers 200 mg 2-29 mg by ity of tablet 00:00: mouth 2 [place] (two) Medical times Branch daily. azithromyci 2020-0 Yes Univer s n 250 mg 2-29 ity of tablet 00:00: [place] 00 Medical Branch predniSONE 2020-0 Yes 60mg Take 60 mg U nivers 20 mg 2-29 by mouth ity of tablet 00:00: every [place] 00 morning. Medical Branch cefpodoxime 2020-0 Yes 200mg Take 200 [facility] nivers 200 mg 2-29 mg by ity of tablet 00:00: mouth 2 [place] (two) Medical times Branch daily. azithromyci 2020-0 Yes [facility] n 250 mg 2-29 ity of tablet 00:00: [place] 00 [facility] predniSONE 2020-0 Yes 60mg Take 60 mg [facility] n[facility] 20 mg 2-29 by mouth ity of tablet 00:00: every [place] 00 morning. [facility] cefpodoxime 2020-0 Yes 200mg Take 200 [facility] 200 mg 2-29 mg by ity of tablet 00:00: mouth 2 [place] (two) Medical times Branch daily. azithromyci 2020-0 Yes [facility] n 250 mg 2-29 ity of tablet 00:00: [place] 00 [facility] predniSONE 2020-0 Yes 60mg Take 60 mg [facility] n[facility] 20 mg 2-29 by mouth ity of tablet 00:00: every [place] 00 morning. [facility] cefpodoxime 2020-0 Yes 200mg Take 200 [facility] n[facility] 200 mg 2-29 mg by ity of tablet 00:00: mouth 2 [place] (two) Medical times Branch daily. azithromyci 2020-0 Yes [facility] n 250 mg 2-29 ity of tablet 00:00: [place] 00 [facility] predniSONE 2020-0 Yes 60mg Take 60 mg [facility] nivers 20 mg 2-29 by mouth ity of tablet 00:00: every [place] [address] morning. Medical Branch cefpodoxime 2020-0 Yes 200mg Take 200 [facility] n[facility] 200 mg 2-29 mg by ity of tablet 00:00: mouth 2 [place] (two) Medical times Branch daily. azithromyci 2020-0 Yes Un[facility] s n 250 mg 2-29 ity of tablet 00:00: [place] 00 [facility] predniSONE 2020-0 Yes 60mg Take 60 mg U nivers 20 mg 2-29 by mouth ity of tablet 00:00: every [place] [address] morning. Medical Branch azithromyci 2020-0 Yes Un[facility] s n 250 mg 2-29 ity of tablet 00:00: [place] 00 [facility] predniSONE 2020-0 Yes 60mg Take 60 mg [facility] nivers 20 mg 2-29 by mouth ity of tablet 00:00: every [place] 00 morning. [facility] azithromyci 2020-0 Yes Un[facility] s n 250 mg 2-29 ity of tablet 00:00: [place] 00 [facility] predniSONE 2020-0 Yes 60mg Take 60 mg U nivers 20 mg 2-29 by mouth ity of tablet 00:00: every [place] [address] morning. Medical Branch azithromyci 2020-0 Yes Un[facility] s n 250 mg 2-29 ity of tablet 00:00: [place] 00 [facility] predniSONE 2020-0 Yes 60mg Take 60 mg U nivers 20 mg 2-29 by mouth ity of tablet 00:00: every [place] 00 morning. [facility] azithromyci 2019-0 2020- No Unive rs n 250 mg 05-27 ity of tablet 00:00: 00:00 [place] 00 :00 [facility] predniSONE 2019-0 2020- No 60mg Take 60 mg [facility] 20 mg 05-27 by mouth ity of tablet 00:00: 00:00 every [place] 00 :00 morning. [facility] Branch cefpodoxime 2019-0 2020- No 200mg Take 200 [facility] 200 mg - 08-24 mg by ity of tablet 00:00: 00:00 mouth 2 [place] 00 :00 (two) Medical times Branch daily. cefpodoxime 2020-0 2020- No 200mg Take 200 [facility] 200 mg - 08-24 mg by ity of tablet 00:00: 00:00 mouth 2 [place] 00 :00 (two) Medical times Branch daily. cefpodoxime 2019-0 2020- No 200mg Take 200 [facility] 200 mg - 08-24 mg by ity of tablet 00:00: 00:00 mouth 2 [place] 00 :00 (two) Medical times Branch daily. albuterol 2020-0 Yes [id number] 2.5mg Inhale 3 [facility] 2.5 mg /3 2-28 mL every 4 ity of mL (0.083 00:00: (four) [place] %) 00 hours as Medical nebulizer needed for Bran ch solution Wheezing or Shortness of Breath. albuterol 2020-0 Yes [id number] 2.5mg Inhale 3 [facility] 2.5 mg /3 2-28 mL every 4 ity of mL (0.083 00:00: (four) [place] %) 00 hours as Medical nebulizer needed for Bran ch solution Wheezing or Shortness of Breath. albuterol 2020-0 Yes [id number] 2.5mg Inhale 3 [facility] 2.5 mg /3 2-28 mL every 4 ity of mL (0.083 00:00: (four) [place] %) 00 hours as Medical nebulizer needed for Bran ch solution Wheezing or Shortness of Breath. albuterol 2020-0 Yes [id number] 2.5mg Inhale 3 [facility] 2.5 mg /3 2-28 mL every 4 ity of mL (0.083 00:00: (four) [place] %) 00 hours as Medical nebulizer needed for Bran ch solution Wheezing or Shortness of Breath. albuterol 2020-0 Yes [id number] 2.5mg Inhale 3 [facility] 2.5 mg /3 2-28 mL every 4 ity of mL (0.083 00:00: (four) [place] %) 00 hours as Medical nebulizer needed for Bran ch solution Wheezing or Shortness of Breath. albuterol 2020-0 Yes [id number] 2.5mg Inhale 3 [facility] 2.5 mg /3 2-28 mL every 4 ity of mL (0.083 00:00: ([facility]) [place] %) 00 hours as Medical nebulizer needed for Bran ch solution Wheezing or Shortness of Breath. albuterol 2020-0 Yes [id number] 2.5mg Inhale 3 [facility] 2.5 mg /3 2-28 mL every 4 ity of mL (0.083 00:00: ([facility]) [place] %) 00 hours as Medical nebulizer needed for Bran ch solution Wheezing or Shortness of Breath. albuterol 2020-0 Yes [id number] 2.5mg Inhale 3 [facility] 2.5 mg /3 2-28 mL every 4 ity of mL (0.083 00:00: ([facility]) [place] %) 00 hours as Medical nebulizer needed for Bran ch solution Wheezing or Shortness of Breath. albuterol 2020-0 Yes [id number] 2.5mg Inhale 3 [facility] 2.5 mg /3 2-28 mL every 4 ity of mL (0.083 00:00: ([facility]) [place] %) 00 hours as Medical nebulizer needed for Bran ch solution Wheezing or Shortness of Breath. albuterol 2020-0 Yes [id number] 2.5mg Inhale 3 [facility] 2.5 mg /3 2-28 mL every 4 ity of mL (0.083 00:00: (four) [place] %) 00 hours as Medical nebulizer needed for Bran ch solution Wheezing or Shortness of Breath. albuterol 2020-0 Yes [id number] 2.5mg Inhale 3 [facility] 2.5 mg /3 2-28 mL every 4 ity of mL (0.083 00:00: ([facility]) [place] %) 00 hours as Medical nebulizer needed for Bran ch solution Wheezing or Shortness of Breath. albuterol 2020-0 Yes [id number] 2.5mg Inhale 3 [facility] 2.5 mg /3 2-28 mL every 4 ity of mL (0.083 00:00: ([facility]) [place] %) 00 hours as Medical nebulizer needed for Bran ch solution Wheezing or Shortness of Breath. albuterol 2020-0 Yes [id number] 2.5mg Inhale 3 [facility] 2.5 mg /3 2-28 mL every 4 ity of mL (0.083 00:00: ([facility]) [place] %) 00 hours as Medical nebulizer needed for Bran ch solution Wheezing or Shortness of Breath. albuterol 2020-0 Yes [id number] 2.5mg Inhale 3 [facility] 2.5 mg /3 2-28 mL every 4 ity of mL (0.083 00:00: ([facility]) [place] %) 00 hours as Medical nebulizer needed for Bran ch solution Wheezing or Shortness of Breath. albuterol 2020-0 Yes [id number] 2.5mg Inhale 3 [facility] 2.5 mg /3 2-28 mL every 4 ity of mL (0.083 00:00: ([facility]) [place] %) 00 hours as Medical nebulizer needed for Bran ch solution Wheezing or Shortness of Breath. albuterol 2020-0 Yes [id number] 2.5mg Inhale 3 [facility] 2.5 mg /3 2-28 mL every 4 ity of mL (0.083 00:00: ([facility]) [place] %) 00 hours as Medical nebulizer needed for Bran ch solution Wheezing or Shortness of Breath. albuterol 2020-0 Yes [id number] 2.5mg Inhale 3 [facility] 2.5 mg /3 2-28 mL every 4 ity of mL (0.083 00:00: ([facility]) [place] %) 00 hours as Medical nebulizer needed for Bran ch solution Wheezing or Shortness of Breath. albuterol 2020-0 Yes [id number] 2.5mg Inhale 3 [facility] 2.5 mg /3 2-28 mL every 4 ity of mL (0.083 00:00: ([facility]) [place] %) 00 hours as Medical nebulizer needed for Bran ch solution Wheezing or Shortness of Breath. albuterol 2020-0 Yes [id number] 2.5mg Inhale 3 [facility] 2.5 mg /3 2-28 mL every 4 ity of mL (0.083 00:00: (four) [place] %) 00 hours as Medical nebulizer needed for Bran ch solution Wheezing or Shortness of Breath. albuterol 2020-0 Yes [id number] 2.5mg Inhale 3 [facility] 2.5 mg /3 2-28 mL every 4 ity of mL (0.083 00:00: (four) [place] %) 00 hours as Medical nebulizer needed for Bran ch solution Wheezing or Shortness of Breath. albuterol 2020-0 Yes [id number] 2.5mg Inhale 3 [facility] 2.5 mg /3 2-28 mL every 4 ity of mL (0.083 00:00: (four) [place] %) 00 hours as Medical nebulizer needed for Bran ch solution Wheezing or Shortness of Breath. albuterol 2020-0 Yes [id number] 2.5mg Inhale 3 [facility] 2.5 mg /3 2-28 mL every 4 ity of mL (0.083 00:00: (four) [place] %) 00 hours as Medical nebulizer needed for Bran ch solution Wheezing or Shortness of Breath. albuterol 2020-0 Yes [id number] 2.5mg Inhale 3 [facility] 2.5 mg /3 2-28 mL every 4 ity of mL (0.083 00:00: (four) [place] %) 00 hours as Medical nebulizer needed for Bran ch solution Wheezing or Shortness of Breath. albuterol 2020-0 Yes [id number] 2.5mg Inhale 3 [facility] 2.5 mg /3 2-28 mL every 4 ity of mL (0.083 00:00: (four) [place] %) 00 hours as Medical nebulizer needed for Bran ch solution Wheezing or Shortness of Breath. albuterol 2020-0 Yes [id number] 2.5mg Inhale 3 [facility] 2.5 mg /3 2-28 mL every 4 ity of mL (0.083 00:00: (four) [place] %) 00 hours as Medical nebulizer needed for Bran ch solution Wheezing or Shortness of Breath. albuterol 2020-0 Yes [id number] 2.5mg Inhale 3 [facility] 2.5 mg /3 2-28 mL every 4 ity of mL (0.083 00:00: (four) [place] %) 00 hours as Medical nebulizer needed for Bran ch solution Wheezing or Shortness of Breath. albuterol 2020-0 Yes [id number] 2.5mg Inhale 3 [facility] 2.5 mg /3 2-28 mL every 4 ity of mL (0.083 00:00: ([facility]) [place] %) 00 hours as Medical nebulizer needed for Bran ch solution Wheezing or Shortness of Breath. albuterol 2020-0 Yes [id number] 2.5mg Inhale 3 [facility] 2.5 mg /3 2-28 mL every 4 ity of mL (0.083 00:00: ([facility]) [place] %) 00 hours as Medical nebulizer needed for Bran ch solution Wheezing or Shortness of Breath. albuterol 2020-0 Yes [id number] 2.5mg Inhale 3 [facility] 2.5 mg /3 2-28 mL every 4 ity of mL (0.083 00:00: ([facility]) [place] %) 00 hours as Medical nebulizer needed for Bran ch solution Wheezing or Shortness of Breath. albuterol 2020-0 Yes [id number] 2.5mg Inhale 3 [facility] 2.5 mg /3 2-28 mL every 4 ity of mL (0.083 00:00: ([facility]) [place] %) 00 hours as Medical nebulizer needed for Bran ch solution Wheezing or Shortness of Breath. albuterol 2020-0 Yes [id number] 2.5mg Inhale 3 [facility] 2.5 mg /3 2-28 mL every 4 ity of mL (0.083 00:00: ([facility]) [place] %) 00 hours as Medical nebulizer needed for Bran ch solution Wheezing or Shortness of Breath. albuterol 2020-0 Yes [id number] 2.5mg Inhale 3 [facility] 2.5 mg /3 2-28 mL every 4 ity of mL (0.083 00:00: ([facility]) [place] %) 00 hours as Medical nebulizer needed for Bran ch solution Wheezing or Shortness of Breath. albuterol 2020-0 Yes [id number] 2.5mg Inhale 3 [facility] 2.5 mg /3 2-28 mL every 4 ity of mL (0.083 00:00: ([facility]) [place] %) 00 hours as Medical nebulizer needed for Bran ch solution Wheezing or Shortness of Breath. albuterol 2020-0 Yes [id number] 2.5mg Inhale 3 [facility] 2.5 mg /3 2-28 mL every 4 ity of mL (0.083 00:00: (four) [place] %) 00 hours as Medical nebulizer needed for Bran ch solution Wheezing or Shortness of Breath. albuterol 2020-0 Yes [id number] 2.5mg Inhale 3 [facility] 2.5 mg /3 2-28 mL every 4 ity of mL (0.083 00:00: (four) [place] %) 00 hours as Medical nebulizer needed for Bran ch solution Wheezing or Shortness of Breath. albuterol 2020-0 Yes [id number] 2.5mg Inhale 3 [facility] 2.5 mg /3 2-28 mL every 4 ity of mL (0.083 00:00: (four) [place] %) 00 hours as Medical nebulizer needed for Bran ch solution Wheezing or Shortness of Breath. albuterol 2020-0 Yes [id number] 2.5mg Inhale 3 [facility] 2.5 mg /3 2-28 mL every 4 ity of mL (0.083 00:00: (four) [place] %) 00 hours as Medical nebulizer needed for Bran ch solution Wheezing or Shortness of Breath. albuterol 2020-0 Yes [id number] 2.5mg Inhale 3 [facility] 2.5 mg /3 2-28 mL every 4 ity of mL (0.083 00:00: (four) [place] %) 00 hours as Medical nebulizer needed for Bran ch solution Wheezing or Shortness of Breath. albuterol 2020-0 Yes [id number] 2.5mg Inhale 3 [facility] 2.5 mg /3 2-28 mL every 4 ity of mL (0.083 00:00: (four) [place] %) 00 hours as Medical nebulizer needed for Bran ch solution Wheezing or Shortness of Breath. albuterol 2020-0 Yes [id number] 2.5mg Inhale 3 [facility] 2.5 mg /3 2-28 mL every 4 ity of mL (0.083 00:00: (four) [place] %) 00 hours as Medical nebulizer needed for Bran ch solution Wheezing or Shortness of Breath. albuterol 2020-0 Yes [id number] 2.5mg Inhale 3 [facility] 2.5 mg /3 2-28 mL every 4 ity of mL (0.083 00:00: (four) [place] %) 00 hours as Medical nebulizer needed for Bran ch solution Wheezing or Shortness of Breath. albuterol 2020-0 Yes [id number] 2.5mg Inhale 3 [facility] 2.5 mg /3 2-28 mL every 4 ity of mL (0.083 00:00: ([facility]) [place] %) 00 hours as Medical nebulizer needed for Bran ch solution Wheezing or Shortness of Breath. albuterol 2020-0 Yes [id number] 2.5mg Inhale 3 [facility] 2.5 mg /3 2-28 mL every 4 ity of mL (0.083 00:00: ([facility]) [place] %) 00 hours as Medical nebulizer needed for Bran ch solution Wheezing or Shortness of Breath. albuterol 2020-0 Yes [id number] 2.5mg Inhale 3 [facility] 2.5 mg /3 2-28 mL every 4 ity of mL (0.083 00:00: ([facility]) [place] %) 00 hours as Medical nebulizer needed for Bran ch solution Wheezing or Shortness of Breath. albuterol 2020-0 Yes [id number] 2.5mg Inhale 3 [facility] 2.5 mg /3 2-28 mL every 4 ity of mL (0.083 00:00: ([facility]) [place] %) 00 hours as Medical nebulizer needed for Bran ch solution Wheezing or Shortness of Breath. albuterol 2020-0 Yes [id number] 2.5mg Inhale 3 [facility] 2.5 mg /3 2-28 mL every 4 ity of mL (0.083 00:00: (four) [place] %) 00 hours as Medical nebulizer needed for Bran ch solution Wheezing or Shortness of Breath. albuterol 2020-0 Yes [id number] 2.5mg Inhale 3 [facility] 2.5 mg /3 2-28 mL every 4 ity of mL (0.083 00:00: (four) [place] %) 00 hours as Medical nebulizer needed for Bran ch solution Wheezing or Shortness of Breath. albuterol 2020-0 Yes [id number] 2.5mg Inhale 3 [facility] 2.5 mg /3 2-28 mL every 4 ity of mL (0.083 00:00: (four) [place] %) 00 hours as Medical nebulizer needed for Bran ch solution Wheezing or Shortness of Breath. albuterol 2020-0 Yes [id number] 2.5mg Inhale 3 [facility] 2.5 mg /3 2-28 mL every 4 ity of mL (0.083 00:00: (four) [place] %) 00 hours as Medical nebulizer needed for Bran ch solution Wheezing or Shortness of Breath. albuterol 2020-0 Yes [id number] 2.5mg Inhale 3 [facility] 2.5 mg /3 2-28 mL every 4 ity of mL (0.083 00:00: (four) [place] %) 00 hours as Medical nebulizer needed for Bran ch solution Wheezing or Shortness of Breath. albuterol 2020-0 Yes [id number] 2.5mg Inhale 3 [facility] 2.5 mg /3 2-28 mL every 4 ity of mL (0.083 00:00: (four) [place] %) 00 hours as Medical nebulizer needed for Bran ch solution Wheezing or Shortness of Breath. albuterol 2020-0 Yes [id number] 2.5mg Inhale 3 [facility] 2.5 mg /3 2-28 mL every 4 ity of mL (0.083 00:00: (four) [place] %) 00 hours as Medical nebulizer needed for Bran ch solution Wheezing or Shortness of Breath. albuterol 2020-0 Yes [id number] 2.5mg Inhale 3 [facility] 2.5 mg /3 2-28 mL every 4 ity of mL (0.083 00:00: (four) [place] %) 00 hours as Medical nebulizer needed for Bran ch solution Wheezing or Shortness of Breath. albuterol 2020-0 Yes [id number] 2.5mg Inhale 3 [facility] 2.5 mg /3 2-28 mL every 4 ity of mL (0.083 00:00: (four) [place] %) 00 hours as Medical nebulizer needed for Bran ch solution Wheezing or Shortness of Breath. albuterol 2020-0 Yes [id number] 2.5mg Inhale 3 [facility] 2.5 mg /3 2-28 mL every 4 ity of mL (0.083 00:00: (four) [place] %) 00 hours as Medical nebulizer needed for Bran ch solution Wheezing or Shortness of Breath. albuterol 2020-0 Yes [id number] 2.5mg Inhale 3 [facility] 2.5 mg /3 2-28 mL every 4 ity of mL (0.083 00:00: (four) [place] %) 00 hours as Medical nebulizer needed for Bran ch solution Wheezing or Shortness of Breath. albuterol 2020-0 Yes [id number] 2.5mg Inhale 3 [facility] 2.5 mg /3 2-28 mL every 4 ity of mL (0.083 00:00: (four) [place] %) 00 hours as Medical nebulizer needed for Bran ch solution Wheezing or Shortness of Breath. albuterol 2020-0 Yes [id number] 2.5mg Inhale 3 [facility] 2.5 mg /3 2-28 mL every 4 ity of mL (0.083 00:00: (four) [place] %) 00 hours as Medical nebulizer needed for Bran ch solution Wheezing or Shortness of Breath. albuterol 2020-0 Yes [id number] 2.5mg Inhale 3 [facility] 2.5 mg /3 2-28 mL every 4 ity of mL (0.083 00:00: (four) [place] %) 00 hours as Medical nebulizer needed for Bran ch solution Wheezing or Shortness of Breath. albuterol 2020-0 Yes [id number] 2.5mg Inhale 3 [facility] 2.5 mg /3 2-28 mL every 4 ity of mL (0.083 00:00: (four) [place] %) 00 hours as Medical nebulizer needed for Bran ch solution Wheezing or Shortness of Breath. albuterol 2020-0 Yes [id number] 2.5mg Inhale 3 [facility] 2.5 mg /3 2-28 mL every 4 ity of mL (0.083 00:00: (four) [place] %) 00 hours as Medical nebulizer needed for Bran ch solution Wheezing or Shortness of Breath. albuterol 2020-0 Yes [id number] 2.5mg Inhale 3 [facility] 2.5 mg /3 2-28 mL every 4 ity of mL (0.083 00:00: (four) [place] %) 00 hours as Medical nebulizer needed for Bran ch solution Wheezing or Shortness of Breath. albuterol 2020-0 Yes [id number] 2.5mg Inhale 3 [facility] 2.5 mg /3 2-28 mL every 4 ity of mL (0.083 00:00: (four) [place] %) 00 hours as Medical nebulizer needed for Bran ch solution Wheezing or Shortness of Breath. albuterol 2020-0 Yes [id number] 2.5mg Inhale 3 [facility] 2.5 mg /3 2-28 mL every 4 ity of mL (0.083 00:00: (four) [place] %) 00 hours as Medical nebulizer needed for Bran ch solution Wheezing or Shortness of Breath. albuterol 2020-0 Yes [id number] 2.5mg Inhale 3 [facility] 2.5 mg /3 2-28 mL every 4 ity of mL (0.083 00:00: (four) [place] %) 00 hours as Medical nebulizer needed for Bran ch solution Wheezing or Shortness of Breath. albuterol 2020-0 Yes [id number] 2.5mg Inhale 3 [facility] 2.5 mg /3 2-28 mL every 4 ity of mL (0.083 00:00: (four) [place] %) 00 hours as Medical nebulizer needed for Bran ch solution Wheezing or Shortness of Breath. albuterol 2020-0 Yes [id number] 2.5mg Inhale 3 [facility] 2.5 mg /3 2-28 mL every 4 ity of mL (0.083 00:00: (four) [place] %) 00 hours as Medical nebulizer needed for Bran ch solution Wheezing or Shortness of Breath. albuterol 2020-0 Yes [id number] 2.5mg Inhale 3 [facility] 2.5 mg /3 2-28 mL every 4 ity of mL (0.083 00:00: (four) [place] %) 00 hours as Medical nebulizer needed for Bran ch solution Wheezing or Shortness of Breath. albuterol 2020-0 Yes [id number] 2.5mg Inhale 3 [facility] 2.5 mg /3 2-28 mL every 4 ity of mL (0.083 00:00: (four) [place] %) 00 hours as Medical nebulizer needed for Bran ch solution Wheezing or Shortness of Breath. albuterol 2020-0 Yes [id number] 2.5mg Inhale 3 [facility] 2.5 mg /3 2-28 mL every 4 ity of mL (0.083 00:00: (four) [place] %) 00 hours as Medical nebulizer needed for Bran ch solution Wheezing or Shortness of Breath. albuterol 2020-0 Yes [id number] 2.5mg Inhale 3 [facility] 2.5 mg /3 2-28 mL every 4 ity of mL (0.083 00:00: (four) [place] %) 00 hours as Medical nebulizer needed for Bran ch solution Wheezing or Shortness of Breath. albuterol 2020-0 Yes [id number] 2.5mg Inhale 3 [facility] 2.5 mg /3 2-28 mL every 4 ity of mL (0.083 00:00: (four) [place] %) 00 hours as Medical nebulizer needed for Bran ch solution Wheezing or Shortness of Breath. albuterol 2020-0 Yes [id number] 2.5mg Inhale 3 [facility] 2.5 mg /3 2-28 mL every 4 ity of mL (0.083 00:00: (four) [place] %) 00 hours as Medical nebulizer needed for Bran ch solution Wheezing or Shortness of Breath. albuterol 2020-0 Yes [id number] 2.5mg Inhale 3 [facility] 2.5 mg /3 2-28 mL every 4 ity of mL (0.083 00:00: (four) [place] %) 00 hours as Medical nebulizer needed for Bran ch solution Wheezing or Shortness of Breath. albuterol 2020-0 Yes [id number] 2.5mg Inhale 3 [facility] 2.5 mg /3 2-28 mL every 4 ity of mL (0.083 00:00: (four) [place] %) 00 hours as Medical nebulizer needed for Bran ch solution Wheezing or Shortness of Breath. albuterol 2020-0 Yes [id number] 2.5mg Inhale 3 [facility] 2.5 mg /3 2-28 mL every 4 ity of mL (0.083 00:00: (four) [place] %) 00 hours as Medical nebulizer needed for Bran ch solution Wheezing or Shortness of Breath. albuterol 2020-0 Yes [id number] 2.5mg Inhale 3 [facility] 2.5 mg /3 2-28 mL every 4 ity of mL (0.083 00:00: (four) [place] %) 00 hours as Medical nebulizer needed for Bran ch solution Wheezing or Shortness of Breath. albuterol 2020-0 Yes [id number] 2.5mg Inhale 3 [facility] 2.5 mg /3 2-28 mL every 4 ity of mL (0.083 00:00: (four) [place] %) 00 hours as Medical nebulizer needed for Bran ch solution Wheezing or Shortness of Breath. albuterol 2020-0 Yes [id number] 2.5mg Inhale 3 [facility] 2.5 mg /3 2-28 mL every 4 ity of mL (0.083 00:00: ([facility]) [place] %) 00 hours as Medical nebulizer needed for Bran ch solution Wheezing or Shortness of Breath. albuterol 2020-0 Yes [id number] 2.5mg Inhale 3 [facility] 2.5 mg /3 2-28 mL every 4 ity of mL (0.083 00:00: ([facility]) [place] %) 00 hours as Medical nebulizer needed for Bran ch solution Wheezing or Shortness of Breath. albuterol 2020-0 Yes [id number] 2.5mg Inhale 3 [facility] 2.5 mg /3 2-28 mL every 4 ity of mL (0.083 00:00: ([facility]) [place] %) 00 hours as Medical nebulizer needed for Bran ch solution Wheezing or Shortness of Breath. albuterol 2020-0 Yes [id number] 2.5mg Inhale 3 [facility] 2.5 mg /3 2-28 mL every 4 ity of mL (0.083 00:00: ([facility]) [place] %) 00 hours as Medical nebulizer needed for Bran ch solution Wheezing or Shortness of Breath. albuterol 2020-0 Yes [id number] 2.5mg Inhale 3 [facility] 2.5 mg /3 2-28 mL every 4 ity of mL (0.083 00:00: ([facility]) [place] %) 00 hours as Medical nebulizer needed for Bran ch solution Wheezing or Shortness of Breath. albuterol 2020-0 Yes [id number] 2.5mg Inhale 3 [facility] 2.5 mg /3 2-28 mL every 4 ity of mL (0.083 00:00: ([facility] [place] %) 00 hours as Medical nebulizer needed for Bran ch solution Wheezing or Shortness of Breath. albuterol 2020-0 Yes [id number] 2.5mg Inhale 3 [facility] 2.5 mg /3 2-28 mL every 4 ity of mL (0.083 00:00: ([facility] [place] %) 00 hours as Medical nebulizer needed for Bran ch solution Wheezing or Shortness of Breath. albuterol 2020-0 Yes [id number] 2.5mg Inhale 3 [facility] 2.5 mg /3 2-28 mL every 4 ity of mL (0.083 00:00: ([facility]) [place] %) 00 hours as Medical nebulizer needed for Bran ch solution Wheezing or Shortness of Breath. albuterol 2020-0 Yes [id number] 2.5mg Inhale 3 [facility] 2.5 mg /3 2-28 mL every 4 ity of mL (0.083 00:00: (four) [place] %) 00 hours as Medical nebulizer needed for Bran ch solution Wheezing or Shortness of Breath. albuterol 2020-0 Yes [id number] 2.5mg Inhale 3 [facility] 2.5 mg /3 2-28 mL every 4 ity of mL (0.083 00:00: (four) [place] %) 00 hours as Medical nebulizer needed for Bran ch solution Wheezing or Shortness of Breath. albuterol 2020-0 Yes [id number] 2.5mg Inhale 3 [facility] 2.5 mg /3 2-28 mL every 4 ity of mL (0.083 00:00: (four) [place] %) 00 hours as Medical nebulizer needed for Bran ch solution Wheezing or Shortness of Breath. albuterol 2020-0 Yes [id number] 2.5mg Inhale 3 [facility] 2.5 mg /3 2-28 mL every 4 ity of mL (0.083 00:00: (four) [place] %) 00 hours as Medical nebulizer needed for Bran ch solution Wheezing or Shortness of Breath. albuterol 2020-0 Yes [id number] 2.5mg Inhale 3 [facility] 2.5 mg /3 2-28 mL every 4 ity of mL (0.083 00:00: (four) [place] %) 00 hours as Medical nebulizer needed for Bran ch solution Wheezing or Shortness of Breath. albuterol 2020-0 Yes [id number] 2.5mg Inhale 3 [facility] 2.5 mg /3 2-28 mL every 4 ity of mL (0.083 00:00: (four) [place] %) 00 hours as Medical nebulizer needed for Bran ch solution Wheezing or Shortness of Breath. albuterol 2020-0 Yes [id number] 2.5mg Inhale 3 [facility] 2.5 mg /3 2-28 mL every 4 ity of mL (0.083 00:00: (four) [place] %) 00 hours as Medical nebulizer needed for Bran ch solution Wheezing or Shortness of Breath. albuterol 2020-0 Yes [id number] 2.5mg Inhale 3 [facility] 2.5 mg /3 2-28 mL every 4 ity of mL (0.083 00:00: (four) [place] %) 00 hours as Medical nebulizer needed for Bran ch solution Wheezing or Shortness of Breath. albuterol 2020-0 Yes [id number] 2.5mg Inhale 3 [facility] 2.5 mg /3 2-28 mL every 4 ity of mL (0.083 00:00: (four) [place] %) 00 hours as Medical nebulizer needed for Bran ch solution Wheezing or Shortness of Breath. albuterol 2020-0 Yes [id number] 2.5mg Inhale 3 [facility] 2.5 mg /3 2-28 mL every 4 ity of mL (0.083 00:00: ([facility] [place] %) 00 hours as Medical nebulizer needed for Bran ch solution Wheezing or Shortness of Breath. albuterol 2020-0 Yes [id number] 2.5mg Inhale 3 [facility] 2.5 mg /3 2-28 mL every 4 ity of mL (0.083 00:00: ([facility] [place] %) 00 hours as Medical nebulizer needed for Bran ch solution Wheezing or Shortness of Breath. albuterol 2020-0 Yes [id number] 2.5mg Inhale 3 [facility] 2.5 mg /3 2-28 mL every 4 ity of mL (0.083 00:00: ([facility] [place] %) 00 hours as Medical nebulizer needed for Bran ch solution Wheezing or Shortness of Breath. albuterol 2020-0 Yes [id number] 2.5mg Inhale 3 [facility] 2.5 mg /3 2-28 mL every 4 ity of mL (0.083 00:00: (four) [place] %) 00 hours as Medical nebulizer needed for Bran ch solution Wheezing or Shortness of Breath. albuterol 2020-0 Yes [id number] 2.5mg Inhale 3 [facility] 2.5 mg /3 2-28 mL every 4 ity of mL (0.083 00:00: (four) [place] %) 00 hours as Medical nebulizer needed for Bran ch solution Wheezing or Shortness of Breath. albuterol 2020-0 Yes [id number] 2.5mg Inhale 3 [facility] 2.5 mg /3 2-28 mL every 4 ity of mL (0.083 00:00: (four) [place] %) 00 hours as Medical nebulizer needed for Bran ch solution Wheezing or Shortness of Breath. albuterol 2020-0 Yes [id number] 2.5mg Inhale 3 [facility] 2.5 mg /3 2-28 mL every 4 ity of mL (0.083 00:00: ([facility]) [place] %) 00 hours as Medical nebulizer needed for Bran ch solution Wheezing or Shortness of Breath. albuterol 2020-0 Yes [id number] 2.5mg Inhale 3 [facility] 2.5 mg /3 2-28 mL every 4 ity of mL (0.083 00:00: ([facility]) [place] %) 00 hours as Medical nebulizer needed for Bran ch solution Wheezing or Shortness of Breath. albuterol 2020-0 Yes [id number] 2.5mg Inhale 3 [facility] 2.5 mg /3 2-28 mL every 4 ity of mL (0.083 00:00: ([facility]) [place] %) 00 hours as Medical nebulizer needed for Bran ch solution Wheezing or Shortness of Breath. albuterol 2020-0 Yes [id number] 2.5mg Inhale 3 [facility] 2.5 mg /3 2-28 mL every 4 ity of mL (0.083 00:00: ([facility]) [place] %) 00 hours as Medical nebulizer needed for Bran ch solution Wheezing or Shortness of Breath. albuterol 2020-0 Yes [id number] 2.5mg Inhale 3 [facility] 2.5 mg /3 2-28 mL every 4 ity of mL (0.083 00:00: ([facility]) [place] %) 00 hours as Medical nebulizer needed for Bran ch solution Wheezing or Shortness of Breath. albuterol 2020-0 Yes [id number] 2.5mg Inhale 3 [facility] 2.5 mg /3 2-28 mL every 4 ity of mL (0.083 00:00: (four) [place] %) 00 hours as Medical nebulizer needed for Bran ch solution Wheezing or Shortness of Breath. albuterol 2020-0 Yes [id number] 2.5mg Inhale 3 [facility] 2.5 mg /3 2-28 mL every 4 ity of mL (0.083 00:00: ([facility]) [place] %) 00 hours as Medical nebulizer needed for Bran ch solution Wheezing or Shortness of Breath. albuterol 2020-0 Yes [id number] 2.5mg Inhale 3 [facility] 2.5 mg /3 2-28 mL every 4 ity of mL (0.083 00:00: (four) [place] %) 00 hours as Medical nebulizer needed for Bran ch solution Wheezing or Shortness of Breath. albuterol 2020-0 Yes [id number] 2.5mg Inhale 3 [facility] 2.5 mg /3 2-28 mL every 4 ity of mL (0.083 00:00: (four) [place] %) 00 hours as Medical nebulizer needed for Bran ch solution Wheezing or Shortness of Breath. albuterol 2020-0 Yes [id number] 2.5mg Inhale 3 [facility] 2.5 mg /3 2-28 mL every 4 ity of mL (0.083 00:00: (four) [place] %) 00 hours as Medical nebulizer needed for Bran ch solution Wheezing or Shortness of Breath. albuterol 2020-0 Yes [id number] 2.5mg Inhale 3 [facility] 2.5 mg /3 2-28 mL every 4 ity of mL (0.083 00:00: (four) [place] %) 00 hours as Medical nebulizer needed for Bran ch solution Wheezing or Shortness of Breath. azithromyci 2020-0 Yes [id number] 250mg Take 1 [facility] n 2-28 tablet by ity of (ZITHROMAX 00:00: mouth [place] Z-MANDO) 250 00 SEE-INSTRU Med ical mg tablet CTIONS. Branch Take 500 mg day 1, then 250 mg days 2 to 5. cefpodoxime 2020-0 Yes [id number] 200mg Take 1 [facility] 200 mg 2-28 tablet by ity of tablet 00:00: mouth 2 [place] 00 (two) Medical times Branch daily. predniSONE 2020-0 Yes [id number] 60mg Take 3 [facility] nivers 20 mg 2-28 tablets by ity of tablet 00:00: mouth [place] 00 every Medical morning. Branch albuterol 2020-0 Yes [id number] 2.5mg Inhale 3 [facility] 2.5 mg /3 2-28 mL every 4 ity of mL (0.083 00:00: (four) [place] %) 00 hours as Medical nebulizer needed for Bran ch solution Wheezing or Shortness of Breath. azithromyci 2020-0 Yes [id number] 250mg Take 1 [facility] n 2-28 tablet by ity of (ZITHROMAX 00:00: mouth [place] Z-MANDO) 250 00 SEE-INSTRU Med ical mg tablet CTIONS. Branch Take 500 mg day 1, then 250 mg days 2 to 5. cefpodoxime 2020-0 Yes [id number] 200mg Take 1 [facility] 200 mg 2-28 tablet by ity of tablet 00:00: mouth 2 [place] 00 (two) Medical times Branch daily. predniSONE 2020-0 Yes [id number] 60mg Take 3 U nivers 20 mg 2-28 tablets by ity of tablet 00:00: mouth [place] 00 every Medical morning. Branch albuterol 2020-0 Yes [id number] 2.5mg Inhale 3 [facility] 2.5 mg /3 2-28 mL every 4 ity of mL (0.083 00:00: (four) [place] %) 00 hours as Medical nebulizer needed for Bran ch solution Wheezing or Shortness of Breath. azithromyci 2020-0 Yes [id number] 250mg Take 1 [facility] n 2-28 tablet by ity of (ZITHROMAX 00:00: mouth [place] Z-MANDO) 250 00 SEE-INSTRU Med ical mg tablet CTIONS. Branch Take 500 mg day 1, then 250 mg days 2 to 5. cefpodoxime 2020-0 Yes [id number] 200mg Take 1 [facility] 200 mg 2-28 tablet by ity of tablet 00:00: mouth 2 (two) Medical times Branch daily. predniSONE 2020-0 Yes [id number] 60mg Take 3 U nivers 20 mg 2-28 tablets by ity of tablet 00:00: mouth [place] 00 every Medical morning. Branch albuterol 2020-0 Yes [id number] 2.5mg Inhale 3 [facility] 2.5 mg /3 2-28 mL every 4 ity of mL (0.083 00:00: (four) [place] %) 00 hours as Medical nebulizer needed for Bran ch solution Wheezing or Shortness of Breath. azithromyci 2020-0 Yes [id number] 250mg Take 1 [facility] n 2-28 tablet by ity of (ZITHROMAX 00:00: mouth [place] Z-MANDO) 250 00 SEE-INSTRU Med ical mg tablet CTIONS. Branch Take 500 mg day 1, then 250 mg days 2 to 5. cefpodoxime 2020-0 Yes [id number] 200mg Take 1 [facility] 200 mg 2-28 tablet by ity of tablet 00:00: mouth 2 [place] 00 (two) Medical times Branch daily. predniSONE 2020-0 Yes [id number] 60mg Take 3 U nivers 20 mg 2-28 tablets by ity of tablet 00:00: mouth [place] 00 every Medical morning. Branch albuterol 2019-0 Yes [id number] 2.5mg Inhale 3 [facility] 2.5 mg /3 2-28 mL every 4 ity of mL (0.083 00:00: (four) [place] %) 00 hours as Medical nebulizer needed for Bran ch solution Wheezing or Shortness of Breath. albuterol 2020-0 Yes [id number] 2.5mg Inhale 3 [facility] 2.5 mg /3 2-28 mL every 4 ity of mL (0.083 00:00: (four) [place] %) 00 hours as Medical nebulizer needed for Bran ch solution Wheezing or Shortness of Breath. azithromyci 2019-0 2020- No [id number] 250mg Take 1 [facility] n 2-12 12-24 tablet by ity of (ZITHROMAX 00:00: 00:00 mouth [place] Z-MANDO) 250 00 :00 SEE-INSTRU Med ical mg tablet CTIONS. Branch Take 500 mg day 1, then 250 mg days 2 to 5. cefpodoxime 2019-0 2020- No [id number] 200mg Take 1 [facility] 200 mg -12 12-24 tablet by ity of tablet 00:00: 00:00 mouth 2 [place] 00 :00 (two) Medical times Branch daily. predniSONE 2019-0 2020- No [id number] 60mg Take 3 [facility] 20 mg 2-28 -24 tablets by ity of tablet 00:00: 00:00 mouth [place] 00 :00 every Medical morning. Branch albuterol 2019-0 Yes [id number] 2{puff} Inhale 2 [facility] 90 2-22 Puffs ity of mcg/actuati 00:00: every 4 [place] as on inhaler 00 (four) Medical hours as Branch needed for Wheezing or Shortness of Breath. acetaminoph 2019-0 Yes [id number] /2 - [facility] en-codeine 2-22 tab Every ity of 300-30 mg 00:00: 4hrs as [place] tablet 00 needed for Medical pain or Branch cough requiring narcotic inhalationa 2019-0 Yes [id number] Use as [facility] l spacing 2-22 directed ity of device 00:00: [place] ([facility]) albuterol 2020-0 Yes [id number] 2{puff} Inhale 2 [facility] 90 2-22 Puffs ity of mcg/actuati 00:00: every 4 [place] as on inhaler 00 (four) Medical hours as Branch needed for Wheezing or Shortness of Breath. acetaminoph 2020-0 Yes [id number] 2 - 1 [facility] en-codeine 2-22 tab Every ity of 300-30 mg 00:00: 4hrs as [place] tablet 00 needed for Medical pain or Branch cough requiring narcotic inhalationa 2020-0 Yes [id number] Use as [facility] l spacing 2-22 directed ity of device 00:00: [place] ([facility]) albuterol 2020-0 Yes [id number] 2{puff} Inhale 2 [facility] 90 2-22 Puffs ity of mcg/actuati 00:00: every 4 [place] as on inhaler 00 (four) Medical hours as Branch needed for Wheezing or Shortness of Breath. acetaminoph 2020-0 Yes [id number] 2 - [facility] en-codeine 2-22 tab Every ity of 300-30 mg 00:00: 4hrs as [place] tablet 00 needed for Medical pain or Branch cough requiring narcotic inhalationa 2020-0 Yes [id number] Use as [facility] l spacing 2-22 directed ity of device 00:00: [place] ([address]) albuterol 2020-0 Yes [id number] 2{puff} Inhale 2 [facility] 90 2-22 Puffs ity of mcg/actuati 00:00: every 4 [place] as on inhaler 00 (four) Medical hours as Branch needed for Wheezing or Shortness of Breath. acetaminoph 2020-0 Yes [id number] 2 - 1 [facility] en-codeine 2-22 tab Every ity of 300-30 mg 00:00: 4hrs as [place] tablet 00 needed for Medical pain or Branch cough requiring narcotic inhalationa 2020-0 Yes [id number] Use as [facility] l spacing 2-22 directed ity of device 00:00: [place] ([address]) albuterol 2020-0 Yes [id number] 2{puff} Inhale 2 [facility] 90 2-22 Puffs ity of mcg/actuati 00:00: every 4 [place] as on inhaler 00 (four) Medical hours as Branch needed for Wheezing or Shortness of Breath. acetaminoph 2020-0 Yes [id number] 2 - 1 [facility] en-codeine 2-22 tab Every ity of 300-30 mg 00:00: 4hrs as [place] tablet 00 needed for Medical pain or Branch cough requiring narcotic inhalationa 2020-0 Yes [id number] Use as [facility] l spacing 2-22 directed ity of device 00:00: [place] ([facility] 00 [facility]) albuterol 2020-0 Yes [id number] 2{puff} Inhale 2 [facility] 90 2-22 Puffs ity of mcg/actuati 00:00: every 4 [place] as on inhaler 00 (four) Medical hours as Branch needed for Wheezing or Shortness of Breath. albuterol 2020-0 Yes [id number] 2{puff} Inhale 2 [facility] 90 2-22 Puffs ity of mcg/actuati 00:00: every 4 [place] as on inhaler 00 (four) Medical hours as Branch needed for Wheezing or Shortness of Breath. acetaminoph 2020-0 Yes [id number] 2 - 1 [facility] en-codeine 2-22 tab Every ity of 300-30 mg 00:00: 4hrs as [place] tablet 00 needed for Medical pain or Branch cough requiring narcotic inhalationa 2020-0 Yes [id number] Use as [facility] l spacing 2-22 directed ity of device 00:00: [place] ([facility] 00 [facility]) inhalationa 2020-0 Yes [id number] Use as [facility] l spacing 2-22 directed ity of device 00:00: [place] ([facility] 00 [facility]) albuterol 2020-0 Yes [id number] 2{puff} Inhale 2 [facility] 90 2-22 Puffs ity of mcg/actuati 00:00: every 4 [place] as on inhaler 00 (four) Medical hours as Branch needed for Wheezing or Shortness of Breath. acetaminoph 2020-0 Yes [id number] 2 - 1 [facility] en-codeine 2-22 tab Every ity of 300-30 mg 00:00: 4hrs as [place] tablet 00 needed for Medical pain or Branch cough requiring narcotic inhalationa 2020-0 Yes [id number] Use as [facility] l spacing 2-22 directed ity of device 00:00: [place] [facility] albuterol 2020-0 Yes [id number] 2{puff} Inhale 2 [facility] 90 2-22 Puffs ity of mcg/actuati 00:00: every 4 [place] as on inhaler 00 (four) Medical hours as Branch needed for Wheezing or Shortness of Breath. acetaminoph 2020-0 Yes [id number] 2 - 1 [facility] en-codeine 2-22 tab Every ity of 300-30 mg 00:00: 4hrs as [place] tablet 00 needed for Medical pain or Branch cough requiring narcotic inhalationa 2020-0 Yes [id number] Use as [facility] l spacing 2-22 directed ity of device 00:00: [place] ([facility]) albuterol 2020-0 Yes [id number] 2{puff} Inhale 2 [facility] 90 2-22 Puffs ity of mcg/actuati 00:00: every 4 [place] as on inhaler 00 (four) Medical hours as Branch needed for Wheezing or Shortness of Breath. acetaminoph 2020-0 Yes [id number] 2 - 1 [facility] en-codeine 2-22 tab Every ity of 300-30 mg 00:00: 4hrs as [place] tablet 00 needed for Medical pain or Branch cough requiring narcotic inhalationa 2020-0 Yes [id number] Use as [facility] l spacing 2-22 directed ity of device 00:00: [place] ([facility] 00 [facility]) albuterol 2020-0 Yes [id number] 2{puff} Inhale 2 [facility] 90 2-22 Puffs ity of mcg/actuati 00:00: every 4 [place] on inhaler 00 (four) Medical hours as Branch needed for Wheezing or Shortness of Breath. acetaminoph 2020-0 Yes [id number] 2 - 1 [facility] en-codeine 2-22 tab Every ity of 300-30 mg 00:00: 4hrs as [place] tablet 00 needed for Medical pain or Branch cough requiring narcotic inhalationa 2020-0 Yes [id number] Use as [facility] l spacing 2-22 directed ity of device 00:00: [place] ([facility] 00 [facility]) albuterol 2020-0 Yes [id number] 2{puff} Inhale 2 [facility] 90 2-22 Puffs ity of mcg/actuati 00:00: every 4 [place] on inhaler 00 (four) Medical hours as Branch needed for Wheezing or Shortness of Breath. acetaminoph 2020-0 Yes [id number] 2 - 1 [facility] en-codeine 2-22 tab Every ity of 300-30 mg 00:00: 4hrs as [place] tablet 00 needed for Medical pain or Branch cough requiring narcotic inhalationa 2020-0 Yes [id number] Use as [facility] l spacing 2-22 directed ity of device 00:00: [place] ([facility] albuterol 2020-0 Yes [id number] 2{puff} Inhale 2 [facility] 90 2-22 Puffs ity of mcg/actuati 00:00: every 4 [place] as on inhaler 00 (four) Medical hours as Branch needed for Wheezing or Shortness of Breath. acetaminoph 2020-0 Yes [id number] 2 - Univers en-codeine 2-22 tab Every ity of 300-30 mg 00:00: 4hrs as [place] tablet 00 needed for Medical pain or Branch cough requiring narcotic inhalationa 2020-0 Yes [id number] Use as [facility] l spacing 2-22 directed ity of device 00:00: [place] ([facility] 00 [facility]) albuterol 2020-0 Yes [id number] 2{puff} Inhale 2 [facility] 90 2-22 Puffs ity of mcg/actuati 00:00: every 4 [place] as on inhaler 00 (four) Medical hours as Branch needed for Wheezing or Shortness of Breath. acetaminoph 2020-0 Yes [id number] 2 - 1 [facility] en-codeine 2-22 tab Every ity of 300-30 mg 00:00: 4hrs as [place] tablet 00 needed for Medical pain or Branch cough requiring narcotic inhalationa 2020-0 Yes [id number] Use as [facility] l spacing 2-22 directed ity of device 00:00: [place] ([facility] albuterol 2020-0 Yes [id number] 2{puff} Inhale 2 [facility] 90 2-22 Puffs ity of mcg/actuati 00:00: every 4 [place] as on inhaler 00 (four) Medical hours as Branch needed for Wheezing or Shortness of Breath. acetaminoph 2020-0 Yes [id number] 2 - 1 [facility] en-codeine 2-22 tab Every ity of 300-30 mg 00:00: 4hrs as [place] tablet 00 needed for Medical pain or Branch cough requiring narcotic inhalationa 2020-0 Yes [id number] Use as [facility] l spacing 2-22 directed ity of device 00:00: [place] ([facility]) albuterol 2020-0 Yes [id number] 2{puff} Inhale 2 [facility] 90 2-22 Puffs ity of mcg/actuati 00:00: every 4 [place] as on inhaler 00 (four) Medical hours as Branch needed for Wheezing or Shortness of Breath. acetaminoph 2020-0 Yes [id number] 2 - 1 [facility] en-codeine 2-22 tab Every ity of 300-30 mg 00:00: 4hrs as [place] tablet 00 needed for Medical pain or Branch cough requiring narcotic inhalationa 2020-0 Yes [id number] Use as Univers l spacing 2-22 directed ity of device 00:00: [place] ([facility]) albuterol 2020-0 Yes [id number] 2{puff} Inhale 2 [facility] 90 2-22 Puffs ity of mcg/actuati 00:00: every 4 [place] as on inhaler 00 (four) Medical hours as Branch needed for Wheezing or Shortness of Breath. acetaminoph 2020-0 Yes [id number] 2 - 1 [facility] en-codeine 2-22 tab Every ity of 300-30 mg 00:00: 4hrs as [place] tablet 00 needed for Medical pain or Branch cough requiring narcotic inhalationa 2020-0 Yes [id number] Use as Univers l spacing 2-22 directed ity of device 00:00: [place] ([facility] 00 [facility]) albuterol 2020-0 Yes [id number] 2{puff} Inhale 2 [facility] 90 2-22 Puffs ity of mcg/actuati 00:00: every 4 [place] as on inhaler 00 (four) Medical hours as Branch needed for Wheezing or Shortness of Breath. acetaminoph 2020-0 Yes [id number] 2 - 1 [facility] en-codeine 2-22 tab Every ity of 300-30 mg 00:00: 4hrs as [place] tablet 00 needed for Medical pain or Branch cough requiring narcotic inhalationa 2019-0 Yes [id number] Use as [facility] l spacing 2-22 directed ity of device 00:00: [place] ([facility]) albuterol 2020-0 Yes [id number] 2{puff} Inhale 2 [facility] 90 2-22 Puffs ity of mcg/actuati 00:00: every 4 [place] as on inhaler 00 (four) Medical hours as Branch needed for Wheezing or Shortness of Breath. acetaminoph 2020-0 Yes [id number] /2 - 1 [facility] en-codeine 2-22 tab Every ity of 300-30 mg 00:00: 4hrs as [place] tablet 00 needed for Medical pain or Branch cough requiring narcotic inhalationa 2020-0 Yes [id number] Use as Univers l spacing 2-22 directed ity of device 00:00: [place] ([address]) albuterol 2020-0 Yes [id number] 2{puff} Inhale 2 [facility] 90 2-22 Puffs ity of mcg/actuati 00:00: every 4 [place] as on inhaler 00 (four) Medical hours as Branch needed for Wheezing or Shortness of Breath. acetaminoph 2020-0 Yes [id number] 2 - 1 [facility] en-codeine 2-22 tab Every ity of 300-30 mg 00:00: 4hrs as [place] tablet 00 needed for Medical pain or Branch cough requiring narcotic inhalationa 2020-0 Yes [id number] Use as Univers l spacing 2-22 directed ity of device 00:00: [place] ([address]) albuterol 2020-0 Yes [id number] 2{puff} Inhale 2 [facility] 90 2-22 Puffs ity of mcg/actuati 00:00: every 4 [place] as on inhaler 00 (four) Medical hours as Branch needed for Wheezing or Shortness of Breath. acetaminoph 2020-0 Yes [id number] 2 - 1 [facility] en-codeine 2-22 tab Every ity of 300-30 mg 00:00: 4hrs as [place] tablet 00 needed for Medical pain or Branch cough requiring narcotic inhalationa 2020-0 Yes [id number] Use as [facility] l spacing 2-22 directed ity of device 00:00: [place] ([address]) albuterol 2020-0 Yes [id number] 2{puff} Inhale 2 [facility] 90 2-22 Puffs ity of mcg/actuati 00:00: every 4 [place] as on inhaler 00 (four) Medical hours as Branch needed for Wheezing or Shortness of Breath. acetaminoph 2020-0 Yes [id number] 2 - 1 [facility] en-codeine 2-22 tab Every ity of 300-30 mg 00:00: 4hrs as [place] tablet 00 needed for Medical pain or Branch cough requiring narcotic inhalationa 2020-0 Yes [id number] Use as [facility] l spacing 2-22 directed ity of device 00:00: [place] ([facility] 00 [facility]) albuterol 2020-0 Yes [id number] 2{puff} Inhale 2 [facility] 90 2-22 Puffs ity of mcg/actuati 00:00: every 4 [place] as on inhaler 00 (four) Medical hours as Branch needed for Wheezing or Shortness of Breath. acetaminoph 2020-0 Yes [id number] 2 - 1 [facility] en-codeine 2-22 tab Every ity of 300-30 mg 00:00: 4hrs as [place] tablet 00 needed for Medical pain or Branch cough requiring narcotic inhalationa 2020-0 Yes [id number] Use as [facility] l spacing 2-22 directed ity of device 00:00: [place] ([facility]) albuterol 2020-0 Yes [id number] 2{puff} Inhale 2 [facility] 90 2-22 Puffs ity of mcg/actuati 00:00: every 4 [place] as on inhaler 00 (four) Medical hours as Branch needed for Wheezing or Shortness of Breath. acetaminoph 2020-0 Yes [id number] 2 - 1 [facility] en-codeine 2-22 tab Every ity of 300-30 mg 00:00: 4hrs as [place] tablet 00 needed for Medical pain or Branch cough requiring narcotic inhalationa 2020-0 Yes [id number] Use as Univers l spacing 2-22 directed ity of device 00:00: [place] ([facility] 00 [facility]) albuterol 2020-0 Yes [id number] 2{puff} Inhale 2 [facility] 90 2-22 Puffs ity of mcg/actuati 00:00: every 4 [place] as on inhaler 00 (four) Medical hours as Branch needed for Wheezing or Shortness of Breath. acetaminoph 2020-0 Yes [id number] 2 - 1 [facility] en-codeine 2-22 tab Every ity of 300-30 mg 00:00: 4hrs as [place] tablet 00 needed for Medical pain or Branch cough requiring narcotic inhalationa 2020-0 Yes [id number] Use as [facility] l spacing 2-22 directed ity of device 00:00: [place] ([facility]) albuterol 2020-0 Yes [id number] 2{puff} Inhale 2 [facility] 90 2-22 Puffs ity of mcg/actuati 00:00: every 4 [place] as on inhaler 00 (four) Medical hours as Branch needed for Wheezing or Shortness of Breath. acetaminoph 2020-0 Yes [id number] 2 - 1 [facility] en-codeine 2-22 tab Every ity of 300-30 mg 00:00: 4hrs as [place] tablet 00 needed for Medical pain or Branch cough requiring narcotic inhalationa 2020-0 Yes [id number] Use as [facility] l spacing 2-22 directed ity of device 00:00: [place] ([address]) albuterol 2020-0 Yes [id number] 2{puff} Inhale 2 [facility] 90 2-22 Puffs ity of mcg/actuati 00:00: every 4 [place] as on inhaler 00 (four) Medical hours as Branch needed for Wheezing or Shortness of Breath. inhalationa 2020-0 Yes [id number] Use as [facility] l spacing 2-22 directed ity of device 00:00: [place] ([address]) albuterol 2020-0 Yes [id number] 2{puff} Inhale 2 [facility] 90 2-22 Puffs ity of mcg/actuati 00:00: every 4 [place] as on inhaler 00 (four) Medical hours as Branch needed for Wheezing or Shortness of Breath. inhalationa 2020-0 Yes [id number] Use as [facility] l spacing 2-22 directed ity of device 00:00: [place] ([address]) albuterol 2020-0 Yes [id number] 2{puff} Inhale 2 [facility] 90 2-22 Puffs ity of mcg/actuati 00:00: every 4 [place] as on inhaler 00 (four) Medical hours as Branch needed for Wheezing or Shortness of Breath. inhalationa 2020-0 Yes [id number] Use as [facility] l spacing 2-22 directed ity of device 00:00: [place] ([address]) albuterol 2020-0 Yes [id number] 2{puff} Inhale 2 [facility] 90 2-22 Puffs ity of mcg/actuati 00:00: every 4 [place] as on inhaler 00 (four) Medical hours as Branch needed for Wheezing or Shortness of Breath. inhalationa 2020-0 Yes [id number] Use as [facility] l spacing 2-22 directed ity of device 00:00: [place] ([address]) albuterol 2020-0 Yes [id number] 2{puff} Inhale 2 [facility] 90 2-22 Puffs ity of mcg/actuati 00:00: every 4 [place] as on inhaler 00 (four) Medical hours as Branch needed for Wheezing or Shortness of Breath. inhalationa 2020-0 Yes [id number] Use as [facility] l spacing 2-22 directed ity of device 00:00: [place] ([address]) albuterol 2020-0 Yes [id number] 2{puff} Inhale 2 [facility] 90 2-22 Puffs ity of mcg/actuati 00:00: every 4 [place] as on inhaler 00 (four) Medical hours as Branch needed for Wheezing or Shortness of Breath. inhalationa 2020-0 Yes [id number] Use as [facility] l spacing 2-22 directed ity of device 00:00: [place] ([address]) albuterol 2020-0 Yes [id number] 2{puff} Inhale 2 [facility] 90 2-22 Puffs ity of mcg/actuati 00:00: every 4 [place] as on inhaler 00 (four) Medical hours as Branch needed for Wheezing or Shortness of Breath. inhalationa 2020-0 Yes [id number] Use as [facility] l spacing 2-22 directed ity of device 00:00: [place] ([address]) albuterol 2020-0 Yes [id number] 2{puff} Inhale 2 [facility] 90 2-22 Puffs ity of mcg/actuati 00:00: every 4 [place] as on inhaler 00 (four) Medical hours as Branch needed for Wheezing or Shortness of Breath. inhalationa 2020-0 Yes [id number] Use as [facility] l spacing 2-22 directed ity of device 00:00: [place] ([address]) albuterol 2020-0 Yes [id number] 2{puff} Inhale 2 [facility] 90 2-22 Puffs ity of mcg/actuati 00:00: every 4 [place] as on inhaler 00 (four) Medical hours as Branch needed for Wheezing or Shortness of Breath. inhalationa 2020-0 Yes [id number] Use as [facility] l spacing 2-22 directed ity of device 00:00: [place] ([address]) albuterol 2020-0 Yes [id number] 2{puff} Inhale 2 [facility] 90 2-22 Puffs ity of mcg/actuati 00:00: every 4 [place] as on inhaler 00 (four) Medical hours as Branch needed for Wheezing or Shortness of Breath. inhalationa 2020-0 Yes [id number] Use as [facility] l spacing 2-22 directed ity of device 00:00: [place] ([address]) albuterol 2020-0 Yes [id number] 2{puff} Inhale 2 [facility] 90 2-22 Puffs ity of mcg/actuati 00:00: every 4 [place] as on inhaler 00 (four) Medical hours as Branch needed for Wheezing or Shortness of Breath. inhalationa 2020-0 Yes [id number] Use as [facility] l spacing 2-22 directed ity of device 00:00: [place] ([address]) albuterol 2020-0 Yes [id number] 2{puff} Inhale 2 [facility] 90 2-22 Puffs ity of mcg/actuati 00:00: every 4 [place] as on inhaler 00 (four) Medical hours as Branch needed for Wheezing or Shortness of Breath. inhalationa 2020-0 Yes [id number] [facility] as [facility] spacing 2-22 directed ity of device 00:00: [place] ([address]) albuterol 2020-0 Yes [id number] 2{puff} Inhale 2 [facility] 90 2-22 Puffs ity of mcg/actuati 00:00: every 4 [facility] as on inhaler 00 (four) Medical hours as Branch needed for Wheezing or Shortness of Breath. inhalationa 2020-0 Yes [id number] Use as [facility] spacing 2-22 directed ity of device 00:00: [place] ([address]) albuterol 2020-0 Yes [id number] 2{puff} Inhale 2 [facility] 90 2-22 Puffs ity of mcg/actuati 00:00: every 4 [facility] on inhaler 00 (four) Medical hours as Branch needed for Wheezing or Shortness of Breath. inhalationa 2020-0 Yes [id number] Use as [facility] spacing 2-22 directed ity of device 00:00: [place] ([address]) albuterol 2020-0 Yes [id number] 2{puff} Inhale 2 [facility] 90 2-22 Puffs ity of mcg/actuati 00:00: every 4 [facility] on inhaler 00 (four) Medical hours as Branch needed for Wheezing or Shortness of Breath. inhalationa 2020-0 Yes [id number] Use as [facility] spacing 2-22 directed ity of device 00:00: [place] ([address]) albuterol 2020-0 Yes [id number] 2{puff} Inhale 2 [facility] 90 2-22 Puffs ity of mcg/actuati 00:00: every 4 [facility] on inhaler 00 (four) Medical hours as Branch needed for Wheezing or Shortness of Breath. inhalationa 2020-0 Yes [id number] Use as [facility] spacing 2-22 directed ity of device 00:00: [place] ([address]) albuterol 2020-0 Yes [id number] 2{puff} Inhale 2 [facility] 90 2-22 Puffs ity of mcg/actuati 00:00: every 4 [facility] on inhaler 00 (four) Medical hours as Branch needed for Wheezing or Shortness of Breath. inhalationa 2020-0 Yes [id number] Use as [facility] spacing 2-22 directed ity of device 00:00: [place] ([address]) albuterol 2020-0 Yes [id number] 2{puff} Inhale 2 [facility] 90 2-22 Puffs ity of mcg/actuati 00:00: every 4 [facility] on inhaler 00 (four) Medical hours as Branch needed for Wheezing or Shortness of Breath. inhalationa 2020-0 Yes [id number] Use as [facility] spacing 2-22 directed ity of device 00:00: [place] ([address]) albuterol 2020-0 Yes [id number] 2{puff} Inhale 2 [facility] 90 2-22 Puffs ity of mcg/actuati 00:00: every 4 [facility] on inhaler 00 (four) Medical hours as Branch needed for Wheezing or Shortness of Breath. inhalationa 2020-0 Yes [id number] Use as [facility] spacing 2-22 directed ity of device 00:00: [place] ([address]) albuterol 2020-0 Yes [id number] 2{puff} Inhale 2 [facility] 90 2-22 Puffs ity of mcg/actuati 00:00: every 4 [facility] on inhaler 00 (four) Medical hours as Branch needed for Wheezing or Shortness of Breath. inhalationa 2020-0 Yes [id number] Use as [facility] spacing 2-22 directed ity of device 00:00: [place] ([address]) albuterol 2020-0 Yes [id number] 2{puff} Inhale 2 [facility] 90 2-22 Puffs ity of mcg/actuati 00:00: every 4 [facility] on inhaler 00 (four) Medical hours as Branch needed for Wheezing or Shortness of Breath. inhalationa 2020-0 Yes [id number] Use as [facility] spacing 2-22 directed ity of device 00:00: [place] ([address]) albuterol 2020-0 Yes [id number] 2{puff} Inhale 2 [facility] 90 2-22 Puffs ity of mcg/actuati 00:00: every 4 [facility] on inhaler 00 (four) Medical hours as Branch needed for Wheezing or Shortness of Breath. inhalationa 2020-0 Yes [id number] Use as [facility] spacing 2-22 directed ity of device 00:00: [place] ([address]) albuterol 2020-0 Yes [id number] 2{puff} Inhale 2 [facility] 90 2-22 Puffs ity of mcg/actuati 00:00: every 4 [facility] on inhaler 00 (four) Medical hours as Branch needed for Wheezing or Shortness of Breath. inhalationa 2020-0 Yes [id number] Use as [facility] spacing 2-22 directed ity of device 00:00: [place] ([address]) albuterol 2020-0 Yes [id number] 2{puff} Inhale 2 [facility] 90 2-22 Puffs ity of mcg/actuati 00:00: every 4 [facility] on inhaler 00 (four) Medical hours as Branch needed for Wheezing or Shortness of Breath. inhalationa 2020-0 Yes [id number] Use as [facility] spacing 2-22 directed ity of device 00:00: [place] ([address]) albuterol 2020-0 Yes [id number] 2{puff} Inhale 2 [facility] 90 2-22 Puffs ity of mcg/actuati 00:00: every 4 [facility] on inhaler 00 (four) Medical hours as Branch needed for Wheezing or Shortness of Breath. inhalationa 2020-0 Yes [id number] Use as [facility] spacing 2-22 directed ity of device 00:00: [place] ([address]) albuterol 2020-0 Yes [id number] 2{puff} Inhale 2 [facility] 90 2-22 Puffs ity of mcg/actuati 00:00: every 4 [facility] on inhaler 00 (four) Medical hours as Branch needed for Wheezing or Shortness of Breath. inhalationa 2020-0 Yes [id number] Use as [facility] spacing 2-22 directed ity of device 00:00: [place] ([address]) albuterol 2020-0 Yes [id number] 2{puff} Inhale 2 [facility] 90 2-22 Puffs ity of mcg/actuati 00:00: every 4 [facility] on inhaler 00 (four) Medical hours as Branch needed for Wheezing or Shortness of Breath. inhalationa 2020-0 Yes [id number] Use as [facility] spacing 2-22 directed ity of device 00:00: [place] ([address]) albuterol 2020-0 Yes [id number] 2{puff} Inhale 2 [facility] 90 2-22 Puffs ity of mcg/actuati 00:00: every 4 [facility] on inhaler 00 (four) Medical hours as Branch needed for Wheezing or Shortness of Breath. inhalationa 2020-0 Yes [id number] Use as [facility] spacing 2-22 directed ity of device 00:00: [place] ([address]) albuterol 2020-0 Yes [id number] 2{puff} Inhale 2 [facility] 90 2-22 Puffs ity of mcg/actuati 00:00: every 4 [facility] on inhaler 00 (four) Medical hours as Branch needed for Wheezing or Shortness of Breath. inhalationa 2020-0 Yes [id number] Use as [facility] spacing 2-22 directed ity of device 00:00: [place] ([address]) albuterol 2020-0 Yes [id number] 2{puff} Inhale 2 [facility] 90 2-22 Puffs ity of mcg/actuati 00:00: every 4 [facility] on inhaler 00 (four) Medical hours as Branch needed for Wheezing or Shortness of Breath. inhalationa 2020-0 Yes [id number] Use as [facility] spacing 2-22 directed ity of device 00:00: [place] ([address]) albuterol 2020-0 Yes [id number] 2{puff} Inhale 2 [facility] 90 2-22 Puffs ity of mcg/actuati 00:00: every 4 [facility] on inhaler 00 (four) Medical hours as Branch needed for Wheezing or Shortness of Breath. inhalationa 2020-0 Yes [id number] Use as [facility] spacing 2-22 directed ity of device 00:00: [place] ([address]) albuterol 2020-0 Yes [id number] 2{puff} Inhale 2 [facility] 90 2-22 Puffs ity of mcg/actuati 00:00: every 4 [facility] on inhaler 00 (four) Medical hours as Branch needed for Wheezing or Shortness of Breath. inhalationa 2020-0 Yes [id number] Use as [facility] spacing 2-22 directed ity of device 00:00: [place] ([address]) albuterol 2020-0 Yes [id number] 2{puff} Inhale 2 [facility] 90 2-22 Puffs ity of mcg/actuati 00:00: every 4 [facility] on inhaler 00 (four) Medical hours as Branch needed for Wheezing or Shortness of Breath. inhalationa 2020-0 Yes [id number] Use as [facility] spacing 2-22 directed ity of device 00:00: [place] ([address]) albuterol 2020-0 Yes [id number] 2{puff} Inhale 2 [facility] 90 2-22 Puffs ity of mcg/actuati 00:00: every 4 [facility] on inhaler 00 (four) Medical hours as Branch needed for Wheezing or Shortness of Breath. inhalationa 2020-0 Yes [id number] Use as [facility] spacing 2-22 directed ity of device 00:00: [place] ([address]) albuterol 2020-0 Yes [id number] 2{puff} Inhale 2 [facility] 90 2-22 Puffs ity of mcg/actuati 00:00: every 4 [facility] on inhaler 00 (four) Medical hours as Branch needed for Wheezing or Shortness of Breath. inhalationa 2020-0 Yes [id number] Use as [facility] spacing 2-22 directed ity of device 00:00: [place] ([address]) albuterol 2020-0 Yes [id number] 2{puff} Inhale 2 [facility] 90 2-22 Puffs ity of mcg/actuati 00:00: every 4 [facility] on inhaler 00 (four) Medical hours as Branch needed for Wheezing or Shortness of Breath. inhalationa 2020-0 Yes [id number] Use as [facility] spacing 2-22 directed ity of device 00:00: [place] ([address]) albuterol 2020-0 Yes [id number] 2{puff} Inhale 2 [facility] 90 2-22 Puffs ity of mcg/actuati 00:00: every 4 [facility] on inhaler 00 (four) Medical hours as Branch needed for Wheezing or Shortness of Breath. inhalationa 2020-0 Yes [id number] Use as [facility] spacing 2-22 directed ity of device 00:00: [place] ([address]) albuterol 2020-0 Yes [id number] 2{puff} Inhale 2 [facility] 90 2-22 Puffs ity of mcg/actuati 00:00: every 4 [facility] on inhaler 00 (four) Medical hours as Branch needed for Wheezing or Shortness of Breath. inhalationa 2020-0 Yes [id number] Use as [facility] spacing 2-22 directed ity of device 00:00: [place] ([address]) albuterol 2020-0 Yes [id number] 2{puff} Inhale 2 [facility] 90 2-22 Puffs ity of mcg/actuati 00:00: every 4 [facility] on inhaler 00 (four) Medical hours as Branch needed for Wheezing or Shortness of Breath. inhalationa 2020-0 Yes [id number] Use as [facility] spacing 2-22 directed ity of device 00:00: [place] ([address]) albuterol 2020-0 Yes [id number] 2{puff} Inhale 2 [facility] 90 2-22 Puffs ity of mcg/actuati 00:00: every 4 [facility] on inhaler 00 (four) Medical hours as Branch needed for Wheezing or Shortness of Breath. inhalationa 2020-0 Yes [id number] Use as [facility] spacing 2-22 directed ity of device 00:00: [place] ([address]) albuterol 2020-0 Yes [id number] 2{puff} Inhale 2 [facility] 90 2-22 Puffs ity of mcg/actuati 00:00: every 4 [facility] on inhaler 00 (four) Medical hours as Branch needed for Wheezing or Shortness of Breath. inhalationa 2020-0 Yes [id number] Use as [facility] spacing 2-22 directed ity of device 00:00: [place] ([address]) albuterol 2020-0 Yes [id number] 2{puff} Inhale 2 [facility] 90 2-22 Puffs ity of mcg/actuati 00:00: every 4 [facility] on inhaler 00 (four) Medical hours as Branch needed for Wheezing or Shortness of Breath. inhalationa 2020-0 Yes [id number] Use as [facility] spacing 2-22 directed ity of device 00:00: [place] ([address]) albuterol 2020-0 Yes [id number] 2{puff} Inhale 2 [facility] 90 2-22 Puffs ity of mcg/actuati 00:00: every 4 [facility] on inhaler 00 (four) Medical hours as Branch needed for Wheezing or Shortness of Breath. inhalationa 2020-0 Yes [id number] Use as [facility] spacing 2-22 directed ity of device 00:00: [place] ([address]) albuterol 2020-0 Yes [id number] 2{puff} Inhale 2 [facility] 90 2-22 Puffs ity of mcg/actuati 00:00: every 4 [facility] on inhaler 00 (four) Medical hours as Branch needed for Wheezing or Shortness of Breath. inhalationa 2020-0 Yes [id number] Use as [facility] spacing 2-22 directed ity of device 00:00: [place] ([address]) albuterol 2020-0 Yes [id number] 2{puff} Inhale 2 [facility] 90 2-22 Puffs ity of mcg/actuati 00:00: every 4 [facility] on inhaler 00 (four) Medical hours as Branch needed for Wheezing or Shortness of Breath. inhalationa 2020-0 Yes [id number] Use as [facility] spacing 2-22 directed ity of device 00:00: [place] ([address]) albuterol 2020-0 Yes [id number] 2{puff} Inhale 2 [facility] 90 2-22 Puffs ity of mcg/actuati 00:00: every 4 [facility] on inhaler 00 (four) Medical hours as Branch needed for Wheezing or Shortness of Breath. inhalationa 2020-0 Yes [id number] Use as [facility] spacing 2-22 directed ity of device 00:00: [place] ([address]) albuterol 2020-0 Yes [id number] 2{puff} Inhale 2 [facility] 90 2-22 Puffs ity of mcg/actuati 00:00: every 4 [facility] on inhaler 00 (four) Medical hours as Branch needed for Wheezing or Shortness of Breath. inhalationa 2020-0 Yes [id number] Use as [facility] spacing 2-22 directed ity of device 00:00: [place] ([address]) albuterol 2020-0 Yes [id number] 2{puff} Inhale 2 [facility] 90 2-22 Puffs ity of mcg/actuati 00:00: every 4 [facility] on inhaler 00 (four) Medical hours as Branch needed for Wheezing or Shortness of Breath. inhalationa 2020-0 Yes [id number] Use as [facility] spacing 2-22 directed ity of device 00:00: [place] ([address]) albuterol 2020-0 Yes [id number] 2{puff} Inhale 2 [facility] 90 2-22 Puffs ity of mcg/actuati 00:00: every 4 [facility] on inhaler 00 (four) Medical hours as Branch needed for Wheezing or Shortness of Breath. inhalationa 2020-0 Yes [id number] Use as [facility] spacing 2-22 directed ity of device 00:00: [place] ([address]) albuterol 2020-0 Yes [id number] 2{puff} Inhale 2 [facility] 90 2-22 Puffs ity of mcg/actuati 00:00: every 4 [facility] on inhaler 00 (four) Medical hours as Branch needed for Wheezing or Shortness of Breath. inhalationa 2020-0 Yes [id number] Use as [facility] spacing 2-22 directed ity of device 00:00: [place] ([address]) albuterol 2020-0 Yes [id number] 2{puff} Inhale 2 [facility] 90 2-22 Puffs ity of mcg/actuati 00:00: every 4 [facility] on inhaler 00 (four) Medical hours as Branch needed for Wheezing or Shortness of Breath. inhalationa 2020-0 Yes [id number] Use as [facility] spacing 2-22 directed ity of device 00:00: [place] ([address]) albuterol 2020-0 Yes [id number] 2{puff} Inhale 2 [facility] 90 2-22 Puffs ity of mcg/actuati 00:00: every 4 [facility] on inhaler 00 (four) Medical hours as Branch needed for Wheezing or Shortness of Breath. inhalationa 2020-0 Yes [id number] Use as [facility] spacing 2-22 directed ity of device 00:00: [place] ([address]) albuterol 2020-0 Yes [id number] 2{puff} Inhale 2 [facility] 90 2-22 Puffs ity of mcg/actuati 00:00: every 4 [facility] on inhaler 00 (four) Medical hours as Branch needed for Wheezing or Shortness of Breath. inhalationa 2020-0 Yes [id number] Use as [facility] spacing 2-22 directed ity of device 00:00: [place] ([address]) albuterol 2020-0 Yes [id number] 2{puff} Inhale 2 [facility] 90 2-22 Puffs ity of mcg/actuati 00:00: every 4 [facility] on inhaler 00 (four) Medical hours as Branch needed for Wheezing or Shortness of Breath. inhalationa 2020-0 Yes [id number] Use as [facility] spacing 2-22 directed ity of device 00:00: [place] ([address]) albuterol 2020-0 Yes [id number] 2{puff} Inhale 2 [facility] 90 2-22 Puffs ity of mcg/actuati 00:00: every 4 [facility] on inhaler 00 (four) Medical hours as Branch needed for Wheezing or Shortness of Breath. inhalationa 2020-0 Yes [id number] Use as [facility] spacing 2-22 directed ity of device 00:00: [place] ([address]) albuterol 2020-0 Yes [id number] 2{puff} Inhale 2 [facility] 90 2-22 Puffs ity of mcg/actuati 00:00: every 4 [facility] on inhaler 00 (four) Medical hours as Branch needed for Wheezing or Shortness of Breath. inhalationa 2020-0 Yes [id number] Use as [facility] spacing 2-22 directed ity of device 00:00: [place] ([address]) albuterol 2020-0 Yes [id number] 2{puff} Inhale 2 [facility] 90 2-22 Puffs ity of mcg/actuati 00:00: every 4 [facility] as on inhaler 00 (four) Medical hours as Branch needed for Wheezing or Shortness of Breath. inhalationa 2020-0 Yes [id number] Use as [facility] spacing 2-22 directed ity of device 00:00: [place] ([address]) albuterol 2020-0 Yes [id number] 2{puff} Inhale 2 [facility] 90 2-22 Puffs ity of mcg/actuati 00:00: every 4 [facility] on inhaler 00 (four) Medical hours as Branch needed for Wheezing or Shortness of Breath. inhalationa 2020-0 Yes [id number] Use as [facility] l spacing 2-22 directed ity of device 00:00: [place] ([address]) albuterol 2020-0 Yes [id number] 2{puff} Inhale 2 [facility] 90 2-22 Puffs ity of mcg/actuati 00:00: every 4 [facility] on inhaler 00 (four) Medical hours as Branch needed for Wheezing or Shortness of Breath. inhalationa 2020-0 Yes [id number] Use as [facility] spacing 2-22 directed ity of device 00:00: [place] ([address]) albuterol 2020-0 Yes [id number] 2{puff} Inhale 2 [facility] 90 2-22 Puffs ity of mcg/actuati 00:00: every 4 [facility] on inhaler 00 (four) Medical hours as Branch needed for Wheezing or Shortness of Breath. inhalationa 2020-0 Yes [id number] Use as [facility] l spacing 2-22 directed ity of device 00:00: [place] ([address]) albuterol 2020-0 Yes [id number] 2{puff} Inhale 2 [facility] 90 2-22 Puffs ity of mcg/actuati 00:00: every 4 [facility] on inhaler 00 (four) Medical hours as Branch needed for Wheezing or Shortness of Breath. inhalationa 2020-0 Yes [id number] Use as [facility] l spacing 2-22 directed ity of device 00:00: [place] ([address]) albuterol 2020-0 Yes [id number] 2{puff} Inhale 2 [facility] 90 2-22 Puffs ity of mcg/actuati 00:00: every 4 [facility] on inhaler 00 (four) Medical hours as Branch needed for Wheezing or Shortness of Breath. inhalationa 2020-0 Yes [id number] Use as [facility] spacing 2-22 directed ity of device 00:00: [place] ([address]) albuterol 2020-0 Yes [id number] 2{puff} Inhale 2 [facility] 90 2-22 Puffs ity of mcg/actuati 00:00: every 4 [facility] on inhaler 00 (four) Medical hours as Branch needed for Wheezing or Shortness of Breath. inhalationa 2020-0 Yes [id number] Use as [facility] l spacing 2-22 directed ity of device 00:00: [place] ([address]) albuterol 2020-0 Yes [id number] 2{puff} Inhale 2 [facility] 90 2-22 Puffs ity of mcg/actuati 00:00: every 4 [facility] on inhaler 00 (four) Medical hours as Branch needed for Wheezing or Shortness of Breath. inhalationa 2020-0 Yes [id number] Use as [facility] spacing 2-22 directed ity of device 00:00: [place] ([address]) albuterol 2020-0 Yes [id number] 2{puff} Inhale 2 [facility] 90 2-22 Puffs ity of mcg/actuati 00:00: every 4 [facility] as on inhaler 00 (four) Medical hours as Branch needed for Wheezing or Shortness of Breath. inhalationa 2020-0 Yes [id number] Use as [facility] l spacing 2-22 directed ity of device 00:00: [place] ([address]) albuterol 2020-0 Yes [id number] 2{puff} Inhale 2 [facility] 90 2-22 Puffs ity of mcg/actuati 00:00: every 4 [facility] on inhaler 00 (four) Medical hours as Branch needed for Wheezing or Shortness of Breath. inhalationa 2020-0 Yes [id number] Use as [facility] spacing 2-22 directed ity of device 00:00: [place] ([address]) albuterol 2020-0 Yes [id number] 2{puff} Inhale 2 [facility] 90 2-22 Puffs ity of mcg/actuati 00:00: every 4 [facility] on inhaler 00 (four) Medical hours as Branch needed for Wheezing or Shortness of Breath. inhalationa 2020-0 Yes [id number] Use as [facility] spacing 2-22 directed ity of device 00:00: [place] ([address]) albuterol 2020-0 Yes [id number] 2{puff} Inhale 2 [facility] 90 2-22 Puffs ity of mcg/actuati 00:00: every 4 [facility] as on inhaler 00 (four) Medical hours as Branch needed for Wheezing or Shortness of Breath. inhalationa 2020-0 Yes [id number] Use as [facility] spacing 2-22 directed ity of device 00:00: [place] ([address]) albuterol 2020-0 Yes [id number] 2{puff} Inhale 2 [facility] 90 2-22 Puffs ity of mcg/actuati 00:00: every 4 [facility] as on inhaler 00 (four) Medical hours as Branch needed for Wheezing or Shortness of Breath. inhalationa 2020-0 Yes [id number] Use as [facility] spacing 2-22 directed ity of device 00:00: [place] ([address]) albuterol 2020-0 Yes [id number] 2{puff} Inhale 2 [facility] 90 2-22 Puffs ity of mcg/actuati 00:00: every 4 [facility] as on inhaler 00 (four) Medical hours as Branch needed for Wheezing or Shortness of Breath. inhalationa 2020-0 Yes [id number] Use as [facility] spacing 2-22 directed ity of device 00:00: [place] ([address]) albuterol 2020-0 Yes [id number] 2{puff} Inhale 2 [facility] 90 2-22 Puffs ity of mcg/actuati 00:00: every 4 [facility] as on inhaler 00 (four) Medical hours as Branch needed for Wheezing or Shortness of Breath. inhalationa 2020-0 Yes [id number] Use as [facility] l spacing 2-22 directed ity of device 00:00: [place] ([address]) albuterol 2020-0 Yes [id number] 2{puff} Inhale 2 [facility] 90 2-22 Puffs ity of mcg/actuati 00:00: every 4 [facility] as on inhaler 00 (four) Medical hours as Branch needed for Wheezing or Shortness of Breath. inhalationa 2020-0 Yes [id number] Use as [facility] spacing 2-22 directed ity of device 00:00: [place] ([address]) albuterol 2020-0 Yes [id number] 2{puff} Inhale 2 [facility] 90 2-22 Puffs ity of mcg/actuati 00:00: every 4 [facility] as on inhaler 00 (four) Medical hours as Branch needed for Wheezing or Shortness of Breath. inhalationa 2020-0 Yes [id number] Use as [facility] spacing 2-22 directed ity of device 00:00: [place] ([address]) albuterol 2020-0 Yes [id number] 2{puff} Inhale 2 [facility] 90 2-22 Puffs ity of mcg/actuati 00:00: every 4 [facility] as on inhaler 00 (four) Medical hours as Branch needed for Wheezing or Shortness of Breath. inhalationa 2020-0 Yes [id number] Use as [facility] spacing 2-22 directed ity of device 00:00: [place] ([address]) albuterol 2020-0 Yes [id number] 2{puff} Inhale 2 [facility] 90 2-22 Puffs ity of mcg/actuati 00:00: every 4 [facility] as on inhaler 00 (four) Medical hours as Branch needed for Wheezing or Shortness of Breath. inhalationa 2020-0 Yes [id number] Use as [facility] spacing 2-22 directed ity of device 00:00: [place] ([address]) albuterol 2020-0 Yes [id number] 2{puff} Inhale 2 [facility] 90 2-22 Puffs ity of mcg/actuati 00:00: every 4 [facility] as on inhaler 00 (four) Medical hours as Branch needed for Wheezing or Shortness of Breath. inhalationa 2020-0 Yes [id number] Use as [facility] spacing 2-22 directed ity of device 00:00: [place] ([address]) albuterol 2020-0 Yes [id number] 2{puff} Inhale 2 [facility] 90 2-22 Puffs ity of mcg/actuati 00:00: every 4 [facility] as on inhaler 00 (four) Medical hours as Branch needed for Wheezing or Shortness of Breath. inhalationa 2020-0 Yes [id number] Use as [facility] spacing 2-22 directed ity of device 00:00: [place] ([address]) albuterol 2020-0 Yes [id number] 2{puff} Inhale 2 [facility] 90 2-22 Puffs ity of mcg/actuati 00:00: every 4 [facility] as on inhaler 00 (four) Medical hours as Branch needed for Wheezing or Shortness of Breath. inhalationa 2020-0 Yes [id number] Use as [facility] l spacing 2-22 directed ity of device 00:00: [place] ([address]) albuterol 2020-0 Yes [id number] 2{puff} Inhale 2 [facility] 90 2-22 Puffs ity of mcg/actuati 00:00: every 4 [facility] as on inhaler 00 (four) Medical hours as Branch needed for Wheezing or Shortness of Breath. inhalationa 2020-0 Yes [id number] Use as [facility] l spacing 2-22 directed ity of device 00:00: [place] ([address]) albuterol 2020-0 Yes [id number] 2{puff} Inhale 2 [facility] 90 2-22 Puffs ity of mcg/actuati 00:00: every 4 [facility] as on inhaler 00 (four) Medical hours as Branch needed for Wheezing or Shortness of Breath. inhalationa 2020-0 Yes [id number] Use as [facility] spacing 2-22 directed ity of device 00:00: [place] ([address]) albuterol 2020-0 Yes [id number] 2{puff} Inhale 2 [facility] 90 2-22 Puffs ity of mcg/actuati 00:00: every 4 [facility] as on inhaler 00 (four) Medical hours as Branch needed for Wheezing or Shortness of Breath. inhalationa 2020-0 Yes [id number] Use as [facility] spacing 2-22 directed ity of device 00:00: [place] ([address]) albuterol 2020-0 Yes [id number] 2{puff} Inhale 2 [facility] 90 2-22 Puffs ity of mcg/actuati 00:00: every 4 [facility] as on inhaler 00 (four) Medical hours as Branch needed for Wheezing or Shortness of Breath. inhalationa 2020-0 Yes [id number] Use as [facility] spacing 2-22 directed ity of device 00:00: [place] ([address]) albuterol 2020-0 Yes [id number] 2{puff} Inhale 2 [facility] 90 2-22 Puffs ity of mcg/actuati 00:00: every 4 [facility] as on inhaler 00 (four) Medical hours as Branch needed for Wheezing or Shortness of Breath. inhalationa 2020-0 Yes [id number] Use as [facility] spacing 2-22 directed ity of device 00:00: [place] ([address]) albuterol 2020-0 Yes [id number] 2{puff} Inhale 2 [facility] 90 2-22 Puffs ity of mcg/actuati 00:00: every 4 [facility] as on inhaler 00 (four) Medical hours as Branch needed for Wheezing or Shortness of Breath. inhalationa 2020-0 Yes [id number] Use as [facility] spacing 2-22 directed ity of device 00:00: [place] ([address]) albuterol 2020-0 Yes [id number] 2{puff} Inhale 2 [facility] 90 2-22 Puffs ity of mcg/actuati 00:00: every 4 [facility] as on inhaler 00 (four) Medical hours as Branch needed for Wheezing or Shortness of Breath. inhalationa 2020-0 Yes [id number] Use as [facility] spacing 2-22 directed ity of device 00:00: [place] ([address]) albuterol 2020-0 Yes [id number] 2{puff} Inhale 2 [facility] 90 2-22 Puffs ity of mcg/actuati 00:00: every 4 [facility] as on inhaler 00 (four) Medical hours as Branch needed for Wheezing or Shortness of Breath. inhalationa 2020-0 Yes [id number] Use as [facility] l spacing 2-22 directed ity of device 00:00: [place] ([address]) albuterol 2020-0 Yes [id number] 2{puff} Inhale 2 [facility] 90 2-22 Puffs ity of mcg/actuati 00:00: every 4 [place] as on inhaler 00 (four) Medical hours as Branch needed for Wheezing or Shortness of Breath. inhalationa 2020-0 Yes [id number] Use as [facility] l spacing 2-22 directed ity of device 00:00: [place] ([address]) albuterol 2020-0 Yes [id number] 2{puff} Inhale 2 [facility] 90 2-22 Puffs ity of mcg/actuati 00:00: every 4 [place] as on inhaler 00 (four) Medical hours as Branch needed for Wheezing or Shortness of Breath. acetaminoph 2020-0 Yes [id number] 1/2 - 1 [facility] en-codeine 2-22 tab Every ity of 300-30 mg 00:00: 4hrs as [place] tablet 00 needed for Medical pain or Branch cough requiring narcotic inhalationa 2020-0 Yes [id number] Use as [facility] l spacing 2-22 directed ity of device 00:00: [place] ([facility]) albuterol 2020-0 Yes [id number] 2{puff} Inhale 2 [facility] 90 2-22 Puffs ity of mcg/actuati 00:00: every 4 [place] as on inhaler 00 (four) Medical hours as Branch needed for Wheezing or Shortness of Breath. acetaminoph 2020-0 Yes [id number] 1/2 - 1 [facility] en-codeine 2-22 tab Every ity of 300-30 mg 00:00: 4hrs as [place] tablet 00 needed for Medical pain or Branch cough requiring narcotic inhalationa 2020-0 Yes [id number] Use as [facility] l spacing 2-22 directed ity of device 00:00: [place] ([address]) albuterol 2020-0 Yes [id number] 2{puff} Inhale 2 [facility] 90 2-22 Puffs ity of mcg/actuati 00:00: every 4 [place] as on inhaler 00 (four) Medical hours as Branch needed for Wheezing or Shortness of Breath. acetaminoph 2020-0 Yes [id number] 2 - 1 [facility] en-codeine 2-22 tab Every ity of 300-30 mg 00:00: 4hrs as [place] tablet 00 needed for Medical pain or Branch cough requiring narcotic inhalationa 2020-0 Yes [id number] Use as [facility] l spacing 2-22 directed ity of device 00:00: [place] ([address]) albuterol 2020-0 Yes [id number] 2{puff} Inhale 2 [facility] 90 2-22 Puffs ity of mcg/actuati 00:00: every 4 [place] as on inhaler 00 (four) Medical hours as Branch needed for Wheezing or Shortness of Breath. acetaminoph 2020-0 Yes [id number] 1/2 - 1 [facility] en-codeine 2-22 tab Every ity of 300-30 mg 00:00: 4hrs as [place] tablet 00 needed for Medical pain or Branch cough requiring narcotic inhalationa 2020-0 Yes [id number] Use as [facility] l spacing 2-22 directed ity of device 00:00: [place] ([address]) albuterol 2020-0 Yes [id number] 2{puff} Inhale 2 [facility] 90 2-22 Puffs ity of mcg/actuati 00:00: every 4 [place] as on inhaler 00 (four) Medical hours as Branch needed for Wheezing or Shortness of Breath. acetaminoph 2020-0 Yes [id number] 2 - 1 [facility] en-codeine 2-22 tab Every ity of 300-30 mg 00:00: 4hrs as [place] tablet 00 needed for Medical pain or Branch cough requiring narcotic inhalationa 2020-0 Yes [id number] Use as [facility] l spacing 2-22 directed ity of device 00:00: [place] ([facility]) albuterol 2020-0 Yes [id number] 2{puff} Inhale 2 [facility] 90 2-22 Puffs ity of mcg/actuati 00:00: every 4 [place] as on inhaler 00 (four) Medical hours as Branch needed for Wheezing or Shortness of Breath. acetaminoph 2020-0 Yes [id number] 2 - 1 [facility] en-codeine 2-22 tab Every ity of 300-30 mg 00:00: 4hrs as [place] tablet 00 needed for Medical pain or Branch cough requiring narcotic inhalationa 2020-0 Yes [id number] Use as [facility] l spacing 2-22 directed ity of device 00:00: [place] ([facility] 00 [facility]) albuterol 2020-0 Yes [id number] 2{puff} Inhale 2 [facility] 90 2-22 Puffs ity of mcg/actuati 00:00: every 4 [place] as on inhaler 00 (four) Medical hours as Branch needed for Wheezing or Shortness of Breath. acetaminoph 2020-0 Yes [id number] 2 - 1 [facility] en-codeine 2-22 tab Every ity of 300-30 mg 00:00: 4hrs as [place] tablet 00 needed for Medical pain or Branch cough requiring narcotic inhalationa 2020-0 Yes [id number] Use as [facility] l spacing 2-22 directed ity of device 00:00: [place] ([facility] 00 [facility]) albuterol 2020-0 Yes [id number] 2{puff} Inhale 2 [facility] 90 2-22 Puffs ity of mcg/actuati 00:00: every 4 [place] as on inhaler 00 (four) Medical hours as Branch needed for Wheezing or Shortness of Breath. acetaminoph 2020-0 Yes [id number] 2 - 1 [facility] en-codeine 2-22 tab Every ity of 300-30 mg 00:00: 4hrs as [place] tablet 00 needed for Medical pain or Branch cough requiring narcotic inhalationa 2020-0 Yes [id number] Use as [facility] l spacing - directed ity of device 00:00: [place] (OPT[facility] 00 Medical R [facility] Branch [facility]) acetaminoph 2020-0 2020- No [id number] 09/18 [facility] en-codeine 2- 09-10 tab Every ity of 300-30 mg 00:00: 00:00 4hrs [place] tablet 00 :00 needed for Medical pain or Branch cough requiring narcotic tiZANidine 2020-0 Yes [id number] 4mg Take 1-2 [facility] 4 mg tablet 2-13 tablets by it y of 00:00: mouth [place] 00 every 8 Medical (eight) Branch hours as needed (muscle pain or spasm). AMLODIPINE 2020-0 Yes [id number] TAKE 1 U nivers 2.5 mg 2-13 TABLET BY ity of tablet 00:00: MOUTH [place] 00 EVERY DAY Medical Branch tiZANidine 2020-0 Yes [id number] 4mg Take 1-2 [facility] 4 mg tablet 2-13 tablets by it y of 00:00: mouth [place] 00 every 8 Medical (eight) Branch hours as needed (muscle pain or spasm). AMLODIPINE 2020-0 Yes [id number] TAKE 1 [facility] nivers 2.5 mg 2-13 TABLET BY ity of tablet 00:00: MOUTH [place] 00 EVERY DAY Medical Branch tiZANidine 2020-0 Yes [id number] 4mg Take 1-2 [facility] 4 mg tablet 2-13 tablets by it y of 00:00: mouth [place] 00 every 8 Medical (eight) Branch hours as needed (muscle pain or spasm). AMLODIPINE 2020-0 Yes [id number] TAKE 1 [facility] nivers 2.5 mg 2-13 TABLET BY ity of tablet 00:00: MOUTH [place] 00 EVERY DAY Medical Branch tiZANidine 2020-0 Yes [id number] 4mg Take 1-2 [facility] 4 mg tablet 2-13 tablets by it y of 00:00: mouth [place] 00 every 8 Medical (eight) Branch hours as needed (muscle pain or spasm). AMLODIPINE 2020-0 Yes [id number] TAKE 1 [facility]ivers 2.5 mg 2-13 TABLET BY ity of tablet 00:00: MOUTH [place] 00 EVERY DAY Medical Branch tiZANidine 2020-0 Yes [id number] 4mg Take 1-2 [facility] 4 mg tablet 2-13 tablets by it y of 00:00: mouth [place] 00 every 8 Medical (eight) Branch hours as needed (muscle pain or spasm). AMLODIPINE 2020-0 Yes [id number] TAKE 1 [facility] nivers 2.5 mg 2-13 TABLET BY ity of tablet 00:00: MOUTH [place] 00 EVERY DAY Medical Branch tiZANidine 2020-0 Yes [id number] 4mg Take 1-2 [facility] 4 mg tablet 2-13 tablets by it y of 00:00: mouth [place] 00 every 8 Medical (eight) Branch hours as needed (muscle pain or spasm). AMLODIPINE 2020-0 Yes [id number] TAKE 1 [facility]ivers 2.5 mg 2-13 TABLET BY ity of tablet 00:00: MOUTH [place] 00 EVERY DAY Medical Branch tiZANidine 2020-0 Yes [id number] 4mg Take 1-2 Univers 4 mg tablet 2-13 tablets by it y of 00:00: mouth [place] 00 every 8 Medical (eight) Branch hours as needed (muscle pain or spasm). AMLODIPINE 2020-0 Yes [id number] TAKE 1 [facility] nivers 2.5 mg 2-13 TABLET BY ity of tablet 00:00: MOUTH [place] 00 EVERY DAY Medical Branch tiZANidine 2020-0 Yes [id number] 4mg Take 1-2 Univers 4 mg tablet 2-13 tablets by it y of 00:00: mouth [place] 00 every 8 Medical (eight) Branch hours as needed (muscle pain or spasm). AMLODIPINE 2020-0 Yes [id number] TAKE 1 [facility]ivers 2.5 mg 2-13 TABLET BY ity of tablet 00:00: MOUTH [place] 00 EVERY DAY Medical Branch tiZANidine 2020-0 Yes [id number] 4mg Take 1-2 [facility] 4 mg tablet 2-13 tablets by it y of 00:00: mouth [place] 00 every 8 Medical (eight) Branch hours as needed (muscle pain or spasm). AMLODIPINE 2020-0 Yes [id number] TAKE 1 U nivers 2.5 mg 2-13 TABLET BY ity of tablet 00:00: MOUTH [place] 00 EVERY DAY Medical Branch tiZANidine 2020-0 Yes [id number] 4mg Take 1-2 Univers 4 mg tablet 2-13 tablets by it y of 00:00: mouth [place] 00 every 8 Medical (eight) Branch hours as needed (muscle pain or spasm). AMLODIPINE 2020-0 Yes [id number] TAKE 1 [facility] nivers 2.5 mg 2-13 TABLET BY ity of tablet 00:00: MOUTH [place] 00 EVERY DAY Medical Branch tiZANidine 2020-0 Yes [id number] 4mg Take 1-2 Univers 4 mg tablet 2-13 tablets by it y of 00:00: mouth [place] 00 every 8 Medical (eight) Branch hours as needed (muscle pain or spasm). AMLODIPINE 2020-0 Yes [id number] TAKE 1 U nivers 2.5 mg 2-13 TABLET BY ity of tablet 00:00: MOUTH 00 EVERY DAY Medical Branch tiZANidine 2020-0 Yes [id number] 4mg Take 1-2 Univers 4 mg tablet 2-13 tablets by it y of 00:00: mouth [place] 00 every 8 Medical (eight) Branch hours as needed (muscle pain or spasm). AMLODIPINE 2020-0 Yes [id number] TAKE 1 [facility] nivers 2.5 mg 2-13 TABLET BY ity of tablet 00:00: MOUTH 00 EVERY DAY Medical Branch AMLODIPINE 2020-0 Yes [id number] TAKE 1 [facility]ivers 2.5 mg 2-13 TABLET BY ity of tablet 00:00: MOUTH 00 EVERY DAY Medical Branch AMLODIPINE 2020-0 Yes [id number] TAKE 1 [facility]ivers 2.5 mg 2-13 TABLET BY ity of tablet 00:00: MOUTH 00 EVERY DAY Medical Branch AMLODIPINE 2020-0 Yes [id number] TAKE 1 [facility]ivers 2.5 mg 2-13 TABLET BY ity of tablet 00:00: MOUTH 00 EVERY DAY Medical Branch AMLODIPINE 2020-0 Yes [id number] TAKE 1 [facility]ivers 2.5 mg 2-13 TABLET BY ity of tablet 00:00: MOUTH 00 EVERY DAY Medical Branch AMLODIPINE 2020-0 Yes [id number] TAKE 1 [facility]ivers 2.5 mg 2-13 TABLET BY ity of tablet 00:00: MOUTH 00 EVERY DAY Medical Branch AMLODIPINE 2020-0 Yes [id number] TAKE 1 [facility]ivers 2.5 mg 2-13 TABLET BY ity of tablet 00:00: MOUTH 00 EVERY DAY Medical Branch AMLODIPINE 2020-0 Yes [id number] TAKE 1 [facility]ivers 2.5 mg 2-13 TABLET BY ity of tablet 00:00: MOUTH [place] 00 EVERY DAY Medical Branch AMLODIPINE 2020-0 Yes [id number] TAKE 1 U nivers 2.5 mg 2-13 TABLET BY ity of tablet 00:00: MOUTH [place] 00 EVERY DAY Medical Branch AMLODIPINE 2020-0 Yes [id number] TAKE 1 U nivers 2.5 mg 2-13 TABLET BY ity of tablet 00:00: MOUTH [place] 00 EVERY DAY Medical Branch AMLODIPINE 2020-0 Yes [id number] TAKE 1 [facility]ivers 2.5 mg 2-13 TABLET BY ity of tablet 00:00: MOUTH [place] 00 EVERY DAY Medical Branch AMLODIPINE 2020-0 Yes [id number] TAKE 1 [facility]ivers 2.5 mg 2-13 TABLET BY ity of tablet 00:00: MOUTH [place] 00 EVERY DAY Medical Branch AMLODIPINE 2020-0 Yes [id number] TAKE 1 [facility]ivers 2.5 mg 2-13 TABLET BY ity of tablet 00:00: MOUTH [place] 00 EVERY DAY Medical Branch AMLODIPINE 2020-0 Yes [id number] TAKE 1 [facility]ivers 2.5 mg 2-13 TABLET BY ity of tablet 00:00: MOUTH 00 EVERY DAY Medical Branch AMLODIPINE 2020-0 Yes [id number] TAKE 1 [facility]ivers 2.5 mg 2-13 TABLET BY ity of tablet 00:00: MOUTH [place] 00 EVERY DAY Medical Branch AMLODIPINE 2020-0 Yes [id number] TAKE 1 [facility] nivers 2.5 mg 2-13 TABLET BY ity of tablet 00:00: MOUTH [place] 00 EVERY DAY Medical Branch AMLODIPINE 2020-0 Yes [id number] TAKE 1 [facility]ivers 2.5 mg 2-13 TABLET BY ity of tablet 00:00: MOUTH [place] 00 EVERY DAY Medical Branch AMLODIPINE 2020-0 Yes [id number] TAKE 1 [facility]ivers 2.5 mg 2-13 TABLET BY ity of tablet 00:00: MOUTH [place] 00 EVERY DAY Medical Branch tiZANidine 2020-0 Yes [id number] 4mg Take 1-2 Univers 4 mg tablet 2-13 tablets by it y of 00:00: mouth [place] 00 every 8 Medical (eight) Branch hours as needed (muscle pain or spasm). amLODIPine 2020-0 Yes [id number] 2.5mg Take 1 [facility] 2.5 mg 2-13 tablet by ity of tablet 00:00: mouth [place] 00 daily. Medical Branch tiZANidine 2020-0 Yes [id number] 4mg Take 1-2 [facility] 4 mg tablet 2-13 tablets by it y of 00:00: mouth [place] 00 every 8 Medical (eight) Branch hours as needed (muscle pain or spasm). AMLODIPINE 2020-0 Yes [id number] TAKE 1 [facility]ivers 2.5 mg 2-13 TABLET BY ity of tablet 00:00: MOUTH [place] 00 EVERY DAY Medical Branch tiZANidine 2020-0 Yes [id number] 4mg Take 1-2 Univers 4 mg tablet 2-13 tablets by it y of 00:00: mouth [place] 00 every 8 Medical (eight) Branch hours as needed (muscle pain or spasm). AMLODIPINE 2020-0 Yes [id number] TAKE 1 [facility] nivers 2.5 mg 2-13 TABLET BY ity of tablet 00:00: MOUTH [place] 00 EVERY DAY Medical Branch tiZANidine 2020-0 Yes [id number] 4mg Take 1-2 [facility] 4 mg tablet 2-13 tablets by it y of 00:00: mouth [place] 00 every 8 Medical (eight) Branch hours as needed (muscle pain or spasm). AMLODIPINE 2020-0 Yes [id number] TAKE 1 [facility]ivers 2.5 mg 2-13 TABLET BY ity of tablet 00:00: MOUTH [place] 00 EVERY DAY Medical Branch tiZANidine 2020-0 Yes [id number] 4mg Take 1-2 [facility] 4 mg tablet 2-13 tablets by it y of 00:00: mouth [place] 00 every 8 Medical (eight) Branch hours as needed (muscle pain or spasm). AMLODIPINE 2020-0 Yes [id number] TAKE 1 [facility]ivers 2.5 mg 2-13 TABLET BY ity of tablet 00:00: MOUTH [place] 00 EVERY DAY Medical Branch tiZANidine 2020-0 Yes [id number] 4mg Take 1-2 [facility] 4 mg tablet 2-13 tablets by it y of 00:00: mouth [place] 00 every 8 Medical (eight) Branch hours as needed (muscle pain or spasm). tiZANidine 2020-0 Yes [id number] 4mg Take 1-2 [facility] 4 mg tablet 2-13 tablets by it y of 00:00: mouth [place] 00 every 8 Medical (eight) Branch hours as needed (muscle pain or spasm). tiZANidine 2020-0 Yes [id number] 4mg Take 1-2 [facility] 4 mg tablet 2-13 tablets by it y of 00:00: mouth [place] 00 every 8 Medical (eight) Branch hours as needed (muscle pain or spasm). AMLODIPINE 2020-0 Yes [id number] TAKE 1 [facility] nivers 2.5 mg 2-13 TABLET BY ity of tablet 00:00: MOUTH [place] 00 EVERY DAY Medical Branch tiZANidine 2020-0 Yes [id number] 4mg Take 1-2 Univers 4 mg tablet 2-13 tablets by it y of 00:00: mouth [place] 00 every 8 Medical (eight) Branch hours as needed (muscle pain or spasm). AMLODIPINE 2020-0 Yes [id number] TAKE 1 [facility]ivers 2.5 mg 2-13 TABLET BY ity of tablet 00:00: MOUTH [place] 00 EVERY DAY Medical Branch tiZANidine 2020-0 Yes [id number] 4mg Take 1-2 [facility] 4 mg tablet 2-13 tablets by it y of 00:00: mouth [place] 00 every 8 Medical (eight) Branch hours as needed (muscle pain or spasm). AMLODIPINE 2020-0 Yes [id number] TAKE 1 [facility]ivers 2.5 mg 2-13 TABLET BY ity of tablet 00:00: MOUTH [place] 00 EVERY DAY Medical Branch tiZANidine 2020-0 Yes [id number] 4mg Take 1-2 [facility] 4 mg tablet 2-13 tablets by it y of 00:00: mouth [place] 00 every 8 Medical (eight) Branch hours as needed (muscle pain or spasm). AMLODIPINE 2020-0 Yes [id number] TAKE 1 U [facility]ivers 2.5 mg 2-13 TABLET BY ity of tablet 00:00: MOUTH [place] 00 EVERY DAY Medical Branch tiZANidine 2020-0 Yes [id number] 4mg Take 1-2 Univers 4 mg tablet 2-13 tablets by it y of 00:00: mouth [place] 00 every 8 Medical (eight) Branch hours as needed (muscle pain or spasm). AMLODIPINE 2020-0 Yes [id number] TAKE 1 [facility]ivers 2.5 mg 2-13 TABLET BY ity of tablet 00:00: MOUTH [place] 00 EVERY DAY Medical Branch tiZANidine 2020-0 Yes [id number] 4mg Take 1-2 [facility] 4 mg tablet 2-13 tablets by it y of 00:00: mouth [place] 00 every 8 Medical (eight) Branch hours as needed (muscle pain or spasm). AMLODIPINE 2020-0 Yes [id number] TAKE 1 [facility]ivers 2.5 mg 2-13 TABLET BY ity of tablet 00:00: MOUTH [place] 00 EVERY DAY Medical Branch tiZANidine 2020-0 Yes [id number] 4mg Take 1-2 [facility] 4 mg tablet 2-13 tablets by it y of 00:00: mouth [place] 00 every 8 Medical (eight) Branch hours as needed (muscle pain or spasm). AMLODIPINE 2020-0 Yes [id number] TAKE 1 [facility] nivers 2.5 mg 2-13 TABLET BY ity of tablet 00:00: MOUTH [place] 00 EVERY DAY Medical Branch AMLODIPINE 2019-0 2020- No [id number] TAKE 1 Univers 2.5 mg 2-13 - TABLET BY ity of tablet 00:00: 00:00 MOUTH [place] 00 :00 EVERY DAY Medical Branch AMLODIPINE 2019-0 2020- No [id number] TAKE 1 Univers 2.5 mg 2-13 - TABLET BY ity of tablet 00:00: 00:00 MOUTH [place] 00 :00 EVERY DAY Medical Branch tiZANidine 2019-0 2020- No [id number] 4mg Take 1-2 Univers 4 mg tablet 2-27 01- tablets by i ty of 00:00: 00:00 mouth [place] 00 :00 every 8 Medical (eight) Branch hours as needed (muscle pain or spasm). amLODIPine 2019-0 2020- No [id number] 2.5mg Take 1 Univers 2.5 mg 2-13 - tablet by ity of tablet 00:00: 00:00 mouth [place] 00 :00 daily. Medical Branch amLODIPine 2019-0 2020- No [id number] 2.5mg Take 1 Univers 2.5 mg 2-13 - tablet by ity of tablet 00:00: 00:00 mouth [place] 00 :00 daily. Medical Branch amLODIPine 2019-0 2020- No [id number] 2.5mg Take 1 Univers 2.5 mg 2-13 - tablet by ity of tablet 00:00: 00:00 mouth [place] 00 :00 daily. Medical Branch alcaftadine 2020-[address] in [facility] nivers (LASTACAFT) 1-06 each eye. ity of 0.25 % Drop 18:01: 24 Medical Branch CYCLOSPORIN 2019-[address] in [facility]ivers E (RESTASIS 1-06 each eye. ity of OPHTHALMIC) 18:01: [place] 24 Medical Branch ASCORBATE 2019-0 Yes Take by [facility] ers CALCIUM 1-06 mouth. ity of (VITAMIN C 18:01: [place] ORAL) 24 Medical Branch DOCOSAHEXAN 2020-0 Yes Take by [facility] [place] OIC 1-06 mouth. ity of ACID/EPA 18:01: [place] (FISH OIL 24 Medical ORAL) Branch vitamin E 2020-0 Yes 1000U Take 1,000 U nivers 1,000 unit 1-06 Units by ity o f capsule 18:01: mouth [place] 24 daily. Medical Branch Magnesium 2020-0 Yes Take by Univ ers 250 mg Tab 1-06 mouth. ity of 18:01: Medical Branch vitamin B-6 2020-0 Yes 100mg Take 100 U nivers (VITAMIN 1-06 mg by ity of B-6) 100 mg 18:01: mouth [place] tablet 24 daily. Medical Branch CALCIUM 2020-0 Yes Take by Univer s CARBONATE/V 1-06 mouth. ity of ITAMIN D3 18:01: [place] (VITAMIN 24 Medical D-3 ORAL) Branch alcaftadine 2020-[address] in [facility]ivers (LASTACAFT) 1-06 each eye. ity of 0.25 % Drop 18:01: Medical Branch CYCLOSPORIN 2020-[address] in [facility]ivers E (RESTASIS 1-06 each eye. ity of OPHTHALMIC) 18:01: Medical Branch ASCORBATE 2020-0 Yes Take by Univ ers CALCIUM 1-06 mouth. ity of (VITAMIN C 18:01: [place] ORAL) 24 Medical Branch DOCOSAHEXAN 2020-0 Yes Take by [facility] [place] OIC 1-06 mouth. ity of ACID/EPA 18:01: [place] (FISH OIL 24 Medical ORAL) Branch vitamin E 2020-0 Yes 1000U Take 1,000 U nivers 1,000 unit 1-06 Units by ity o f capsule 18:01: mouth [place] 24 daily. Medical Branch Magnesium 2020-0 Yes Take by Univ ers 250 mg Tab 1-06 mouth. ity of 18:01: Medical Branch vitamin B-6 2020-0 Yes 100mg Take 100 U nivers (VITAMIN 1-06 mg by ity of B-6) 100 mg 18:01: mouth [place] tablet 24 daily. Medical Branch CALCIUM 2020-0 Yes Take by Univer s CARBONATE/V 1-06 mouth. ity of ITAMIN D3 18:01: [place] (VITAMIN 24 Medical D-3 ORAL) Branch alcaftadine 2020-[address] in [facility] nivers (LASTACAFT) 1-06 each eye. ity of 0.25 % Drop 18:01: [place] [id number] Medical Branch CYCLOSPORIN 2020-[address] in U nivers E (RESTASIS 1-06 each eye. ity of OPHTHALMIC) 18:01: [place] [id number] Medical Branch ASCORBATE 2020-0 Yes Take by Univ ers CALCIUM 1-06 mouth. ity of (VITAMIN C 18:01: [place] ORAL) 24 Medical Branch DOCOSAHEXAN 2020-0 Yes Take by [facility] [place] OIC 1-06 mouth. ity of ACID/EPA 18:01: [place] (FISH OIL 24 Medical ORAL) Branch vitamin E 2020-0 Yes 1000U Take 1,000 U nivers 1,000 unit 1-06 Units by ity o f capsule 18:01: mouth [place] 24 daily. Medical Branch Magnesium 2020-0 Yes Take by Univ ers 250 mg Tab 1-06 mouth. ity of 18:01: [place] [address] Medical Branch vitamin B-6 2020-0 Yes 100mg Take 100 U nivers (VITAMIN 1-06 mg by ity of B-6) 100 mg 18:01: mouth [place] tablet 24 daily. Medical Branch CALCIUM 2020-0 Yes Take by Univer s CARBONATE/V 1-06 mouth. ity of ITAMIN D3 18:01: [place] (VITAMIN Medical D-3 ORAL) Branch alcaftadine 2020-[address] in [facility] nivers (LASTACAFT) 1-06 each eye. ity of 0.25 % Drop 18:01: [place] [address] Medical Branch CYCLOSPORIN 2020-[address] in U nivers E (RESTASIS 1-06 each eye. ity of OPHTHALMIC) 18:01: [place] [address] Medical Branch ASCORBATE 2020-0 Yes Take by [facility] ers CALCIUM 1-06 mouth. ity of (VITAMIN C 18:01: [place] ORAL) 24 Medical Branch DOCOSAHEXAN 2020-0 Yes Take by [facility] [place] OIC 1-06 mouth. ity of ACID/EPA 18:01: [place] (FISH OIL 24 Medical ORAL) Branch vitamin E 2020-0 Yes 1000U Take 1,000 U nivers 1,000 unit 1-06 Units by ity o f capsule 18:01: mouth [place] 24 daily. Medical Branch Magnesium 2020-0 Yes Take by Univ ers 250 mg Tab 1-06 mouth. ity of 18:01: [place] [address] Medical Branch vitamin B-6 2020-0 Yes 100mg Take 100 U nivers (VITAMIN 1-06 mg by ity of B-6) 100 mg 18:01: mouth [place] tablet 24 daily. Medical Branch CALCIUM 2020-0 Yes Take by Univer s CARBONATE/V 1-06 mouth. ity of ITAMIN D3 18:01: [place] (VITAMIN 24 Medical D-3 ORAL) Branch alcaftadine 2020-[address] in U nivers (LASTACAFT) 1-06 each eye. ity of 0.25 % Drop 18:01: Medical Branch CYCLOSPORIN 2020-[address] in U [facility]ivers E (RESTASIS 1-06 each eye. ity of OPHTHALMIC) 18:01: Medical Branch ASCORBATE 2020-0 Yes Take by Univ ers CALCIUM 1-06 mouth. ity of (VITAMIN C 18:01: [place] ORAL) 24 Medical Branch DOCOSAHEXAN 2020-0 Yes Take by [facility] [place] OIC 1-06 mouth. ity of ACID/EPA 18:01: [place] (FISH OIL 24 Medical ORAL) Branch vitamin E 2020-0 Yes 1000U Take 1,000 U nivers 1,000 unit 1-06 Units by ity o f capsule 18:01: mouth [place] 24 daily. Medical Branch Magnesium 2020-0 Yes Take by [facility] ers 250 mg Tab 1-06 mouth. ity of 18:01: Medical Branch vitamin B-6 2020-0 Yes 100mg Take 100 U nivers (VITAMIN 1-06 mg by ity of B-6) 100 mg 18:01: mouth [place] tablet 24 daily. Medical Branch CALCIUM 2020-0 Yes Take by Univer s CARBONATE/V 1-06 mouth. ity of ITAMIN D3 18:01: [place] (VITAMIN 24 Medical D-3 ORAL) Branch alcaftadine 2020-[address] in [facility]ivers (LASTACAFT) 1-06 each eye. ity of 0.25 % Drop 18:01: Medical Branch CYCLOSPORIN 2020-[address] in U nivers E (RESTASIS 1-06 each eye. ity of OPHTHALMIC) 18:01: Medical Branch ASCORBATE 2020-0 Yes Take by Univ ers CALCIUM 1-06 mouth. ity of (VITAMIN C 18:01: [place] ORAL) 24 Medical Branch DOCOSAHEXAN 2020-0 Yes Take by [facility] [place] OIC 1-06 mouth. ity of ACID/EPA 18:01: [place] (FISH OIL 24 Medical ORAL) Branch vitamin E 2020-0 Yes 1000U Take 1,000 U nivers 1,000 unit 1-06 Units by ity o f capsule 18:01: mouth [place] 24 daily. Medical Branch Magnesium 2020-0 Yes Take by Univ ers 250 mg Tab 1-06 mouth. ity of 18:01: Medical Branch vitamin B-6 2020-0 Yes 100mg Take 100 U nivers (VITAMIN 1-06 mg by ity of B-6) 100 mg 18:01: mouth [place] tablet 24 daily. Medical Branch CALCIUM 2020-0 Yes Take by Univer s CARBONATE/V 1-06 mouth. ity of ITAMIN D3 18:01: [place] (VITAMIN 24 Medical D-3 ORAL) Branch alcaftadine 2020-[address] in U nivers (LASTACAFT) 1-06 each eye. ity of 0.25 % Drop 18:01: Medical Branch CYCLOSPORIN 2020-[address] in U nivers E (RESTASIS 1-06 each eye. ity of OPHTHALMIC) 18:01: Medical Branch ASCORBATE 2020-0 Yes Take by [facility] ers CALCIUM 1-06 mouth. ity of (VITAMIN C 18:01: [place] ORAL) 24 Medical Branch DOCOSAHEXAN 2020-0 Yes Take by [facility] [place] OIC 1-06 mouth. ity of ACID/EPA 18:01: [place] (FISH OIL 24 Medical ORAL) Branch vitamin E 2020-0 Yes 1000U Take 1,000 U nivers 1,000 unit 1-06 Units by ity o f capsule 18:01: mouth [place] 24 daily. Medical Branch Magnesium 2020-0 Yes Take by Univ ers 250 mg Tab 1-06 mouth. ity of 18:01: Medical Branch vitamin B-6 2020-0 Yes 100mg Take 100 U nivers (VITAMIN 1-06 mg by ity of B-6) 100 mg 18:01: mouth [place] tablet 24 daily. Medical Branch CALCIUM 2020-0 Yes Take by Univer s CARBONATE/V 1-06 mouth. ity of ITAMIN D3 18:01: [place] (VITAMIN 24 Medical D-3 ORAL) Branch alcaftadine 2020-[address] in [facility]ivers (LASTACAFT) 1-06 each eye. ity of 0.25 % Drop 18:01: Medical Branch CYCLOSPORIN 2020-[address] in U nivers E (RESTASIS 1-06 each eye. ity of OPHTHALMIC) 18:01: Medical Branch ASCORBATE 2020-0 Yes Take by Univ ers CALCIUM 1-06 mouth. ity of (VITAMIN C 18:01: [place] ORAL) 24 Medical Branch DOCOSAHEXAN 2020-0 Yes Take by [facility] [place] OIC 1-06 mouth. ity of ACID/EPA 18:: [place] (FISH OIL 24 Medical ORAL) Branch vitamin E 2020-0 Yes 1000U Take 1,000 U nivers 1,000 unit 1-06 Units by ity o f capsule 18:01: mouth [place] 24 daily. Medical Branch Magnesium 2020-0 Yes Take by [facility] ers 250 mg Tab 1-06 mouth. ity of 18:01: Medical Branch vitamin B-6 2020-0 Yes 100mg Take 100 U nivers (VITAMIN 1-06 mg by ity of B-6) 100 mg 18:01: mouth [place] tablet 24 daily. Medical Branch CALCIUM 2020-0 [facility] [place] [facility]-06 mouth. ity of ITAMIN D3 18:01: [place] (VITAMIN 24 Medical D-3 ORAL) Branch alcaftadine 2020-[address] in [facility]ivers (LASTACAFT) 1-06 each eye. ity of 0.25 % Drop 18:: Medical Branch CYCLOSPORIN [address] in U nivers E (RESTASIS 1-06 each eye. ity of OPHTHALMIC) 18:: Medical Branch ASCORBATE 2020-0 Yes Take by [facility] ers CALCIUM 1-06 mouth. ity of (VITAMIN C 18:01: [place] ORAL) 24 Medical Branch DOCOSAHEXAN 2020-0 Yes Take by [facility] [place] OIC 1-06 mouth. ity of ACID/EPA 18:01: [place] (FISH OIL 24 Medical ORAL) Branch vitamin E 2020-0 Yes 1000U Take 1,000 U nivers 1,000 unit 1-06 Units by ity o f capsule 18:01: mouth [place] 24 daily. Medical Branch Magnesium 2020-0 Yes Take by [facility] ers 250 mg Tab 1-06 mouth. ity of 18:: Medical Branch vitamin B-6 2020-0 Yes 100mg Take 100 U nivers (VITAMIN 1-06 mg by ity of B-6) 100 mg 18:01: mouth [place] tablet 24 daily. Medical Branch CALCIUM 2020-0 Yes Take by [facility] CARBONATE/V 1-06 mouth. ity of ITAMIN D3 18:01: [place] (VITAMIN 24 Medical D-3 ORAL) Branch alcaftadine 2020-[address] in [facility] nivers (LASTACAFT) 1-06 each eye. ity of 0.25 % Drop 18:01: Medical Branch CYCLOSPORIN 2020-[address] in [facility]ivers E (RESTASIS 1-06 each eye. ity of OPHTHALMIC) 18:01: Medical Branch ASCORBATE 2020-0 Yes Take by [facility] ers CALCIUM 1-06 mouth. ity of (VITAMIN C 18:01: [place] ORAL) 24 Medical Branch DOCOSAHEXAN 2020-0 Yes Take by [facility] [place] OIC 1-06 mouth. ity of ACID/EPA 18:01: [place] (FISH OIL 24 Medical ORAL) Branch vitamin E 2020-0 Yes 1000U Take 1,000 U nivers 1,000 unit 1-06 Units by ity o f capsule 18:01: mouth [place] 24 daily. Medical Branch Magnesium 2020-0 Yes Take by [facility] ers 250 mg Tab 1-06 mouth. ity of 18:01: Medical Branch vitamin B-6 2020-0 Yes 100mg Take 100 U nivers (VITAMIN 1-06 mg by ity of B-6) 100 mg 18:01: mouth [place] tablet 24 daily. Medical Branch CALCIUM 2020-0 [facility]-06 mouth. ity of ITAMIN D3 18:01: [place] (VITAMIN 24 Medical D-3 ORAL) Branch alcaftadine 2020-[address] in [facility] nivers (LASTACAFT) 1-06 each eye. ity of 0.25 % Drop 18:01: Medical Branch CYCLOSPORIN 2020-[address] in [facility] nivers E (RESTASIS 1-06 each eye. ity of OPHTHALMIC) 18:01: Medical Branch ASCORBATE 2020-0 Yes Take by Univ ers CALCIUM 1-06 mouth. ity of (VITAMIN C 18:01: [place] ORAL) 24 Medical Branch DOCOSAHEXAN 2020-0 Yes Take by [facility] [place] OIC 1-06 mouth. ity of ACID/EPA 18:01: [place] (FISH OIL 24 Medical ORAL) Branch vitamin E 2020-0 Yes 1000U Take 1,000 U nivers 1,000 unit 1-06 Units by ity o f capsule 18:01: mouth [place] 24 daily. Medical Branch Magnesium 2020-0 Yes Take by [facility] ers 250 mg Tab 1-06 mouth. ity of 18:01: Medical Branch vitamin B-6 2020-0 Yes 100mg Take 100 U nivers (VITAMIN 1-06 mg by ity of B-6) 100 mg 18:01: mouth [place] tablet 24 daily. Medical Branch CALCIUM 2020-0 Yes Take by Univer s CARBONATE/V 1-06 mouth. ity of ITAMIN D3 18:01: [place] (VITAMIN 24 Medical D-3 ORAL) Branch alcaftadine 2020-[address] in [facility] nivers (LASTACAFT) 1-06 each eye. ity of 0.25 % Drop 18:01: Medical Branch CYCLOSPORIN 2020-[address] in [facility] nivers E (RESTASIS 1-06 each eye. ity of OPHTHALMIC) 18:01: Medical Branch ASCORBATE 2020-0 Yes Take by [facility] ers CALCIUM 1-06 mouth. ity of (VITAMIN C 18:01: [place] ORAL) 24 Medical Branch DOCOSAHEXAN 2020-0 Yes Take by [facility] [place] OIC 1-06 mouth. ity of ACID/EPA 18:01: [place] (FISH OIL 24 Medical ORAL) Branch vitamin E 2020-0 Yes 1000U Take 1,000 U nivers 1,000 unit 1-06 Units by ity o f capsule 18:01: mouth [place] 24 daily. Medical Branch Magnesium 2020-0 Yes Take by Univ ers 250 mg Tab 1-06 mouth. ity of 18:01: Medical Branch vitamin B-6 2020-0 Yes 100mg Take 100 U nivers (VITAMIN 1-06 mg by ity of B-6) 100 mg 18:01: mouth [place] tablet 24 daily. Medical Branch CALCIUM 2020-0 [facility] [place] [facility]-06 mouth. ity of ITAMIN D3 18:01: [place] (VITAMIN 24 Medical D-3 ORAL) Branch alcaftadine 2020-[address] in [facility] nivers (LASTACAFT) 1-06 each eye. ity of 0.25 % Drop 18:01: Medical Branch CYCLOSPORIN 2020-[address] in U nivers E (RESTASIS 1-06 each eye. ity of OPHTHALMIC) 18:01: Medical Branch ASCORBATE 2020-0 Yes Take by Univ ers CALCIUM 1-06 mouth. ity of (VITAMIN C 18:01: [place] ORAL) 24 Medical Branch DOCOSAHEXAN 2020-0 Yes Take by [facility] [place] OIC 1-06 mouth. ity of ACID/EPA 18:01: [place] (FISH OIL 24 Medical ORAL) Branch vitamin E 2020-0 Yes 1000U Take 1,000 U nivers 1,000 unit 1-06 Units by ity o f capsule 18:01: mouth [place] 24 daily. Medical Branch Magnesium 2020-0 Yes Take by Univ ers 250 mg Tab 1-06 mouth. ity of 18:01: Medical Branch vitamin B-6 2020-0 Yes 100mg Take 100 U nivers (VITAMIN 1-06 mg by ity of B-6) 100 mg 18:01: mouth [place] tablet 24 daily. Medical Branch CALCIUM 2020-0 Yes Take by Univer s CARBONATE/V 1-06 mouth. ity of ITAMIN D3 18:01: [place] (VITAMIN 24 Medical D-3 ORAL) Branch alcaftadine 2020-[address] in U nivers (LASTACAFT) 1-06 each eye. ity of 0.25 % Drop 18:: Medical Branch CYCLOSPORIN 2020-[address] in U nivers E (RESTASIS 1-06 each eye. ity of OPHTHALMIC) 18:01: Medical Branch ASCORBATE 2020-0 Yes Take by [facility] ers CALCIUM 1-06 mouth. ity of (VITAMIN C 18:01: [place] ORAL) 24 Medical Branch DOCOSAHEXAN 2020-0 Yes Take by [facility] [place] OIC 1-06 mouth. ity of ACID/EPA 18:01: [place] (FISH OIL 24 Medical ORAL) Branch vitamin E 2020-0 Yes 1000U Take 1,000 U nivers 1,000 unit 1-06 Units by ity o f capsule 18:01: mouth [place] 24 daily. Medical Branch Magnesium 2020-0 Yes Take by Univ ers 250 mg Tab 1-06 mouth. ity of 18:01: Medical Branch vitamin B-6 2020-0 Yes 100mg Take 100 U nivers (VITAMIN 1-06 mg by ity of B-6) 100 mg 18:01: mouth [place] tablet 24 daily. Medical Branch CALCIUM 2020-0 Yes Take by Univer s CARBONATE/V 1-06 mouth. ity of ITAMIN D3 18:01: [place] (VITAMIN 24 Medical D-3 ORAL) Branch TRIAMTERENE 2018-09 Yes [id number] TAKE 2 Univers -HYDROCHLOR 2-02 TABLETS BY it y of OTHIAZID 00:00: MOUTH [place] 37.5-25 mg 00 DAILY. [facility] [id number] TAKE 2 Univers -HYDROCHLOR 2-02 TABLETS BY it y of OTHIAZID 00:00: MOUTH [place] 37.5-25 mg 00 DAILY. Medical tablet Branch [facility] Yes [id number] TAKE 2 Univers -HYDROCHLOR 2-02 TABLETS BY it y of OTHIAZID 00:00: MOUTH [place] 37.5-25 mg 00 DAILY. Medical [facility] Branch [facility] Yes [id number] TAKE 2 Univers -HYDROCHLOR 2-02 TABLETS BY it y of OTHIAZID 00:00: MOUTH [place] 37.5-25 mg 00 DAILY. Medical tablet Branch [facility] Yes [id number] TAKE 2 Univers -HYDROCHLOR 2-02 TABLETS BY it y of OTHIAZID 00:00: MOUTH [place] 37.5-25 mg 00 DAILY. Medical tablet Branch [facility] 2018-09 Yes [id number] TAKE 2 Univers -HYDROCHLOR 2-02 TABLETS BY it y of OTHIAZID 00:00: MOUTH [place] 37.5-25 mg 00 DAILY. Medical tablet Branch [facility] 2018-09 Yes [id number] TAKE 2 Univers -HYDROCHLOR 2-02 TABLETS BY it y of OTHIAZID 00:00: MOUTH [place] 37.5-25 mg 00 DAILY. Medical tablet Branch [facility] Yes [id number] TAKE 2 Univers -HYDROCHLOR 2-02 TABLETS BY it y of OTHIAZID 00:00: MOUTH [place] 37.5-25 mg 00 DAILY. Medical tablet Branch [facility] Yes [id number] TAKE 2 Univers -HYDROCHLOR 2-02 TABLETS BY it y of OTHIAZID 00:00: MOUTH [place] 37.5-25 mg 00 DAILY. Medical tablet Branch [facility] Yes [id number] TAKE 2 Univers -HYDROCHLOR 2-02 TABLETS BY it y of OTHIAZID 00:00: MOUTH [place] 37.5-25 mg 00 DAILY. Medical tablet Branch [facility] Yes [id number] TAKE 2 Univers -HYDROCHLOR 2-02 TABLETS BY it y of OTHIAZID 00:00: MOUTH [place] 37.5-25 mg 00 DAILY. Medical tablet Branch [facility] Yes [id number] TAKE 2 Univers -HYDROCHLOR 2-02 TABLETS BY it y of OTHIAZID 00:00: MOUTH [place] 37.5-25 mg 00 DAILY. Medical tablet Branch [facility] Yes [id number] TAKE 2 Univers -HYDROCHLOR 2-02 TABLETS BY it y of OTHIAZID 00:00: MOUTH [place] 37.5-25 mg 00 DAILY. Medical tablet Branch [facility] 2018-09 Yes [id number] TAKE 2 Univers -HYDROCHLOR 2-02 TABLETS BY it y of OTHIAZID 00:00: MOUTH [place] 37.5-25 mg 00 DAILY. Medical tablet Branch [facility]09 Yes [id number] TAKE 2 Univers -HYDROCHLOR 2-02 TABLETS BY it y of OTHIAZID 00:00: MOUTH [place] 37.5-25 mg 00 DAILY. Medical tablet Branch [facility] 2018-09 Yes [id number] TAKE 2 Univers -HYDROCHLOR 2-02 TABLETS BY it y of OTHIAZID 00:00: MOUTH [place] 37.5-25 mg 00 DAILY. Medical tablet Branch [facility] 2018-09 Yes [id number] TAKE 2 Univers -HYDROCHLOR 2-02 TABLETS BY it y of OTHIAZID 00:00: MOUTH [place] 37.5-25 mg 00 DAILY. Medical tablet Branch [facility] 2018-09 Yes [id number] TAKE 2 Univers -HYDROCHLOR 2-02 TABLETS BY it y of OTHIAZID 00:00: MOUTH [place] 37.5-25 mg 00 DAILY. Medical tablet Branch [facility] 2018-09 Yes [id number] TAKE 2 Univers -HYDROCHLOR 2-02 TABLETS BY it y of OTHIAZID 00:00: MOUTH [place] 37.5-25 mg 00 DAILY. Medical tablet Branch [facility] 2018-09 Yes [id number] TAKE 2 Univers -HYDROCHLOR 2-02 TABLETS BY it y of OTHIAZID 00:00: MOUTH [place] 37.5-25 mg 00 DAILY. Medical tablet Branch [facility] 2018-09 Yes [id number] TAKE 2 Univers -HYDROCHLOR 2-02 TABLETS BY it y of OTHIAZID 00:00: MOUTH [place] 37.5-25 mg 00 DAILY. Medical tablet Branch [facility] 2018-09 Yes [id number] TAKE 2 Univers -HYDROCHLOR 2-02 TABLETS BY it y of OTHIAZID 00:00: MOUTH [place] 37.5-25 mg 00 DAILY. Medical tablet Branch [facility] 2018-09 Yes [id number] TAKE 2 Univers -HYDROCHLOR 2-02 TABLETS BY it y of OTHIAZID 00:00: MOUTH [place] 37.5-25 mg 00 DAILY. Medical tablet Branch TRIAMTERENE 2018-09 Yes [id number] TAKE 2 Univers -HYDROCHLOR 2-02 TABLETS BY it y of OTHIAZID 00:00: MOUTH [place] 37.5-25 mg 00 DAILY. Medical tablet Branch TRIAMTERENE 2018-09 Yes [id number] TAKE 2 Univers -HYDROCHLOR 2-02 TABLETS BY it y of OTHIAZID 00:00: MOUTH [place] 37.5-25 mg 00 DAILY. Medical tablet Branch TRIAMTERENE 2018-09 Yes [id number] TAKE 2 Univers -HYDROCHLOR 2-02 TABLETS BY it y of OTHIAZID 00:00: MOUTH [place] 37.5-25 mg 00 DAILY. Medical tablet Branch TRIAMTERENE 2018-09 Yes [id number] TAKE 2 Univers -HYDROCHLOR 2-02 TABLETS BY it y of OTHIAZID 00:00: MOUTH [place] 37.5-25 mg 00 DAILY. Medical tablet Branch TRIAMTERENE 2018-09 Yes [id number] TAKE 2 Univers -HYDROCHLOR 2-02 TABLETS BY it y of OTHIAZID 00:00: MOUTH [place] 37.5-25 mg 00 DAILY. Medical tablet Branch TRIAMTERENE 2018-09 Yes [id number] TAKE 2 Univers -HYDROCHLOR 2-02 TABLETS BY it y of OTHIAZID 00:00: MOUTH [place] 37.5-25 mg 00 DAILY. Medical tablet Branch tiZANidine 2018-09 Yes [id number] 2mg Take 1-2 Univers 2 mg tablet 1-20 tablets by it y of 00:00: mouth [place] 00 every 8 Medical (eight) Branch hours as needed (muscle pain or spasm). tiZANidine 2018-09 Yes [id number] 2mg Take 1-2 Univers 2 mg tablet 1-20 tablets by it y of 00:00: mouth [place] 00 every 8 Medical (eight) Branch hours as needed (muscle pain or spasm). tiZANidine 2018-09 2020- No [id number] 2mg Take 1-2 Univers 2 mg tablet 1-20 02-13 tablets by i ty of 00:00: 00:00 mouth [place] 00 :00 every 8 Medical (eight) Branch hours as needed (muscle pain or spasm). tiZANidine 2018-09 2020- No [id number] 2mg Take 1-2 Univers 2 mg tablet 1-20 02-13 tablets by i ty of 00:00: 00:00 mouth [place] 00 :00 every 8 Medical (eight) Branch hours as needed (muscle pain or spasm). TRAZODONE 2018-09 Yes [id number] 100mg TAKE 1 Univers 100 mg 0-08 TABLET BY ity of tablet 00:00: MOUTH AT [place] [address] BEDTIME. Medical FOR Branch INSOMNIA. TRAZODONE 2018-09 Yes [id number] 100mg TAKE 1 Univers 100 mg 0-08 TABLET BY ity of tablet 00:00: MOUTH AT [place] 00 BEDTIME. Medical FOR Branch INSOMNIA. TRAZODONE 2018-09 Yes [id number] 100mg TAKE 1 Univers 100 mg 0-08 TABLET BY ity of tablet 00:00: MOUTH AT [place] [address] BEDTIME. Medical FOR Branch INSOMNIA. TRAZODONE 2018-09 Yes [id number] 100mg TAKE 1 Univers 100 mg 0-08 TABLET BY ity of tablet 00:00: MOUTH AT [place] [address] BEDTIME. Medical FOR Branch INSOMNIA. TRAZODONE 2018-09 Yes [id number] 100mg TAKE 1 [facility] 100 mg 0-08 TABLET BY ity of tablet 00:00: MOUTH AT [place] [address] BEDTIME. Medical FOR Branch INSOMNIA. TRAZODONE 2018-09 Yes [id number] 100mg TAKE 1 Univers 100 mg 0-08 TABLET BY ity of tablet 00:00: MOUTH AT [place] [address] BEDTIME. Medical FOR Branch INSOMNIA. TRAZODONE 2018-09 Yes [id number] 100mg TAKE 1 [facility] 100 mg 0-08 TABLET BY ity of tablet 00:00: MOUTH AT [place] [address] BEDTIME. Medical FOR Branch INSOMNIA. TRAZODONE 2018-09 Yes [id number] 100mg TAKE 1 [facility] 100 mg 0-08 TABLET BY ity of tablet 00:00: MOUTH AT [place] [address] BEDTIME. Medical FOR Branch INSOMNIA. TRAZODONE 2018-09 Yes [id number] 100mg TAKE 1 [facility] 100 mg 0-08 TABLET BY ity of tablet 00:00: MOUTH AT [place] [address] BEDTIME. Medical FOR Branch INSOMNIA. TRAZODONE 2018-09 Yes [id number] 100mg TAKE 1 [facility] 100 mg 0-08 TABLET BY ity of tablet 00:00: MOUTH AT [place] [address] BEDTIME. Medical FOR Branch INSOMNIA. TRAZODONE 2018-09 Yes [id number] 100mg TAKE 1 [facility] 100 mg 0-08 TABLET BY ity of tablet 00:00: MOUTH AT [place] 00 BEDTIME. Medical FOR Branch INSOMNIA. TRAZODONE 2018-09 Yes [id number] 100mg TAKE 1 [facility] 100 mg 0-08 TABLET BY ity of tablet 00:00: MOUTH AT [place] 00 BEDTIME. Medical FOR Branch INSOMNIA. TRAZODONE 2018-09 Yes [id number] 100mg TAKE 1 [facility] 100 mg 0-08 TABLET BY ity of tablet 00:00: MOUTH AT [place] 00 BEDTIME. Medical FOR Branch INSOMNIA. TRAZODONE 2018-09 Yes [id number] 100mg TAKE 1 [facility] 100 mg 0-08 TABLET BY ity of tablet 00:00: MOUTH AT [place] 00 BEDTIME. Medical FOR Branch INSOMNIA. TRAZODONE 2018-09 Yes [id number] 100mg TAKE 1 [facility] 100 mg 0-08 TABLET BY ity of tablet 00:00: MOUTH AT [place] [address] BEDTIME. Medical FOR Branch INSOMNIA. TRAZODONE 2018-09 Yes [id number] 100mg TAKE 1 [facility] 100 mg 0-08 TABLET BY ity of tablet 00:00: MOUTH AT [place] [address] BEDTIME. Medical FOR Branch INSOMNIA. TRAZODONE 2018-09 Yes [id number] 100mg TAKE 1 [facility] 100 mg 0-08 TABLET BY ity of tablet 00:00: MOUTH AT [place] 00 BEDTIME. Medical FOR Branch INSOMNIA. TRAZODONE 2018-09 Yes [id number] 100mg TAKE 1 [facility] 100 mg 0-08 TABLET BY ity of tablet 00:00: MOUTH AT [place] [address] BEDTIME. Medical FOR Branch INSOMNIA. TRAZODONE 2018-09 Yes [id number] 100mg TAKE 1 [facility] 100 mg 0-08 TABLET BY ity of tablet 00:00: MOUTH AT [place] 00 BEDTIME. Medical FOR Branch INSOMNIA. TRAZODONE 2018-09 Yes [id number] 100mg TAKE 1 [facility] 100 mg 0-08 TABLET BY ity of tablet 00:00: MOUTH AT [place] 00 BEDTIME. Medical FOR Branch INSOMNIA. TRAZODONE 2018-09 2020- No [id number] 100mg TAKE 1 [facility] 100 mg 0-08 04-06 TABLET BY ity of tablet 00:00: 00:00 MOUTH AT [place] 00 :00 BEDTIME. Medical FOR Branch INSOMNIA. cyclobenzap 2018- Yes [id number] 10mg Take 1 Univers rine 10 mg 9-30 tablet by ity of tablet 00:00: mouth 3 (three) Medical times Branch daily. cyclobenzap Yes [id number] 10mg Take 1 Univers rine 10 mg 9-30 tablet by ity of tablet 00:00: mouth 3 (three) Medical times Branch daily. cyclobenzap Yes [id number] 10mg Take 1 [facility] rine 10 mg 9-30 tablet by ity of tablet 00:00: mouth (three) Medical times Branch daily. cyclobenzap Yes [id number] 10mg Take 1 [facility] rine 10 mg 9-30 tablet by ity of tablet 00:00: mouth 3 (three) Medical times Branch daily. cyclobenzap Yes [id number] 10mg Take 1 [facility] rine 10 mg 9-30 tablet by ity of tablet 00:00: mouth (three) Medical times Branch daily. cyclobenzap Yes [id number] 10mg Take 1 [facility] rine 10 mg 9-30 tablet by ity of tablet 00:00: mouth (three) Medical times Branch daily. cyclobenzap Yes [id number] 10mg Take 1 [facility] rine 10 mg 9-30 tablet by ity of tablet 00:00: mouth (three) Medical times Branch daily. cyclobenzap Yes [id number] 10mg Take 1 [facility] rine 10 mg 9-30 tablet by ity of tablet 00:00: mouth (three) Medical times Branch daily. cyclobenzap Yes [id number] 10mg Take 1 [facility] rine 10 mg 9-30 tablet by ity of tablet 00:00: mouth (three) Medical times Branch daily. cyclobenzap Yes [id number] 10mg Take 1 [facility] rine 10 mg 9-30 tablet by ity of tablet 00:00: mouth 3 (three) Medical times Branch daily. cyclobenzap Yes [id number] 10mg Take 1 [facility] rine 10 mg 9-30 tablet by ity of tablet 00:00: mouth 3 (three) Medical times Branch daily. cyclobenzap Yes [id number] 10mg Take 1 [facility] rine 10 mg 9-30 tablet by ity of tablet 00:00: mouth (three) Medical times Branch daily. cyclobenzap 2018- Yes [id number] 10mg Take 1 [facility] rine 10 mg 9-30 tablet by ity of tablet 00:00: mouth (three) Medical times Branch daily. cyclobenzap Yes [id number] 10mg Take 1 [facility] rine 10 mg 9-30 tablet by ity of tablet 00:00: mouth (three) Medical times Branch daily. cyclobenzap 2018- Yes [id number] 10mg Take 1 [facility] rine 10 mg 9-30 tablet by ity of tablet 00:00: mouth (three) Medical times Branch daily. cyclobenzap 2018- Yes [id number] 10mg Take 1 [facility] rine 10 mg 9-30 tablet by ity of tablet 00:00: mouth (three) Medical times Branch daily. cyclobenzap 2018- Yes [id number] 10mg Take 1 [facility] rine 10 mg 9-30 tablet by ity of tablet 00:00: mouth (three) Medical times Branch daily. cyclobenzap Yes [id number] 10mg Take 1 [facility] rine 10 mg 9-30 tablet by ity of tablet 00:00: mouth (three) Medical times Branch daily. cyclobenzap 2018- Yes [id number] 10mg Take 1 [facility] rine 10 mg 9-30 tablet by ity of tablet 00:00: mouth (three) Medical times Branch daily. cyclobenzap 2018-0 Yes [id number] 10mg Take 1 [facility] rine 10 mg 9-30 tablet by ity of tablet 00:00: mouth (three) Medical times Branch daily. cyclobenzap 2018- Yes [id number] 10mg Take 1 [facility] rine 10 mg 9-30 tablet by ity of tablet 00:00: mouth (three) Medical times Branch daily. cyclobenzap 2019-0 Yes [id number] 10mg Take 1 [facility] rine 10 mg 9-30 tablet by ity of tablet 00:00: mouth 3 (three) Medical times Branch daily. cyclobenzap 2018- Yes [id number] 10mg Take 1 [facility] rine 10 mg 9-30 tablet by ity of tablet 00:00: mouth (three) Medical times Branch daily. cyclobenzap Yes [id number] 10mg Take 1 [facility] rine 10 mg 9-30 tablet by ity of tablet 00:00: mouth 3 (three) Medical times Branch daily. cyclobenzap Yes [id number] 10mg Take 1 [facility] rine 10 mg 9-30 tablet by ity of tablet 00:00: mouth 3 (three) Medical times Branch daily. cyclobenzap Yes [id number] 10mg Take 1 [facility] rine 10 mg 9-30 tablet by ity of tablet 00:00: mouth 3 (three) Medical times Branch daily. cyclobenzap Yes [id number] 10mg Take 1 [facility] rine 10 mg 9-30 tablet by ity of tablet 00:00: mouth (three) Medical times Branch daily. cyclobenzap Yes [id number] 10mg Take 1 [facility] rine 10 mg 9-30 tablet by ity of tablet 00:00: mouth (three) Medical times Branch daily. cyclobenzap Yes [id number] 10mg Take 1 [facility] rine 10 mg 9-30 tablet by ity of tablet 00:00: mouth (three) Medical times Branch daily. cyclobenzap Yes [id number] 10mg Take 1 [facility] rine 10 mg 9-30 tablet by ity of tablet 00:00: mouth (three) Medical times Branch daily. cyclobenzap 2018- Yes [id number] 10mg Take 1 [facility] rine 10 mg 9-30 tablet by ity of tablet 00:00: mouth (three) Medical times Branch daily. cyclobenzap Yes [id number] 10mg Take 1 [facility] rine 10 mg 9-30 tablet by ity of tablet 00:00: mouth 3 (three) Medical times Branch daily. cyclobenzap 2018- Yes [id number] 10mg Take 1 [facility] rine 10 mg 9-30 tablet by ity of tablet 00:00: mouth 3 (three) Medical times Branch daily. cyclobenzap 2018- Yes [id number] 10mg Take 1 [facility] rine 10 mg 9-30 tablet by ity of tablet 00:00: mouth 3 (three) Medical times Branch daily. cyclobenzap Yes [id number] 10mg Take 1 [facility] rine 10 mg 9-30 tablet by ity of tablet 00:00: mouth 3 [place] 00 (three) Medical times Branch daily. cyclobenzap Yes [id number] 10mg Take 1 [facility] rine 10 mg 9-30 tablet by ity of tablet 00:00: mouth 3 00 (three) Medical times Branch daily. cyclobenzap Yes [id number] 10mg Take 1 [facility] rine 10 mg 9-30 tablet by ity of tablet 00:00: mouth 3 00 (three) Medical times Branch daily. cyclobenzap Yes [id number] 10mg Take 1 [facility] rine 10 mg 9-30 tablet by ity of tablet 00:00: mouth 3 (three) Medical times Branch daily. cyclobenzap Yes [id number] 10mg Take 1 [facility] rine 10 mg 9-30 tablet by ity of tablet 00:00: mouth 3 (three) Medical times Branch daily. METFORMIN 2019- Yes [id number] TAKE 1 [facility] [place] 500 mg 9-30 TABLET BY ity o f 24 hr 00:00: MOUTH [place] tablet 00 EVERY DAY Medical WITH Branch BREAKFAST naproxen 2018-0 Yes [id number] 500mg Take 1 U nivers (NAPROSYN) 9-30 tablet by ity of 500 mg 00:00: mouth 2 [place] tablet 00 (two) Medical times Branch daily with meals. cyclobenzap Yes [id number] 10mg Take 1 [facility] rine 10 mg 9-30 tablet by ity of tablet 00:00: mouth 3 [place] 00 (three) Medical times Branch daily. METFORMIN 2018- Yes [id number] TAKE 1 [facility] [place] 500 mg 9-30 TABLET BY ity o f 24 hr 00:00: MOUTH [place] tablet 00 EVERY DAY Medical WITH Branch BREAKFAST naproxen 2019-0 Yes [id number] 500mg Take 1 U nivers (NAPROSYN) 9-30 tablet by ity of 500 mg 00:00: mouth 2 [place] tablet 00 (two) Medical times Branch daily with meals. cyclobenzap Yes [id number] 10mg Take 1 [facility] rine 10 mg 9-30 tablet by ity of tablet 00:00: mouth 3 [place] 00 (three) Medical times Branch daily. METFORMIN 2019-0 Yes [id number] TAKE 1 [facility] [place] 500 mg 9-30 TABLET BY ity o f 24 hr 00:00: MOUTH [place] tablet 00 EVERY DAY Medical WITH Branch BREAKFAST cyclobenzap Yes [id number] 10mg Take 1 [facility] rine 10 mg 9-30 tablet by ity of tablet 00:00: mouth 3 [place] 00 (three) Medical times Branch daily. METFORMIN 2018- Yes [id number] TAKE 1 [facility] [place] 500 mg 9-30 TABLET BY ity o f 24 hr 00:00: MOUTH [place] tablet 00 EVERY DAY Medical WITH Branch BREAKFAST cyclobenzap Yes [id number] 10mg Take 1 [facility] rine 10 mg 9-30 tablet by ity of tablet 00:00: mouth 3 [place] 00 (three) Medical times Branch daily. METFORMIN 2018- Yes [id number] TAKE 1 [facility] [place] 500 mg 9-30 TABLET BY ity o f 24 hr 00:00: MOUTH [place] tablet 00 EVERY DAY Medical WITH Branch BREAKFAST cyclobenzap Yes [id number] 10mg Take 1 [facility] rine 10 mg 9-30 tablet by ity of tablet 00:00: mouth 3 [place] 00 (three) Medical times Branch daily. METFORMIN 2018- Yes [id number] TAKE 1 [facility] [place] 500 mg 9-30 TABLET BY ity o f 24 hr 00:00: MOUTH [place] tablet 00 EVERY DAY Medical WITH Branch BREAKFAST cyclobenzap Yes [id number] 10mg Take 1 [facility] rine 10 mg 9-30 tablet by ity of tablet 00:00: mouth 3 [place] 00 (three) Medical times Branch daily. METFORMIN 2018-0 Yes [id number] TAKE 1 [facility] [place] 500 mg 9-30 TABLET BY ity o f 24 hr 00:00: MOUTH [place] tablet 00 EVERY DAY Medical WITH Branch BREAKFAST cyclobenzap Yes [id number] 10mg Take 1 [facility] rine 10 mg 9-30 tablet by ity of tablet 00:00: mouth 3 [place] 00 (three) Medical times Branch daily. METFORMIN 2018-0 Yes [id number] TAKE 1 [facility] [place] 500 mg 9-30 TABLET BY ity o f 24 hr 00:00: MOUTH [place] tablet 00 EVERY DAY Medical WITH Branch BREAKFAST cyclobenzap Yes [id number] 10mg Take 1 [facility] rine 10 mg 9-30 tablet by ity of tablet 00:00: mouth 3 [place] 00 (three) Medical times Branch daily. METFORMIN 2019-0 Yes [id number] TAKE 1 [facility] [place] 500 mg 9-30 TABLET BY ity o f 24 hr 00:00: MOUTH [place] tablet 00 EVERY DAY Medical WITH Branch BREAKFAST cyclobenzap Yes [id number] 10mg Take 1 [facility] rine 10 mg 9-30 tablet by ity of tablet 00:00: mouth 3 [place] 00 (three) Medical times Branch daily. METFORMIN 2018-0 Yes [id number] TAKE 1 [facility] [place] 500 mg 9-30 TABLET BY ity o f 24 hr 00:00: MOUTH [place] tablet 00 EVERY DAY Medical WITH Branch BREAKFAST cyclobenzap Yes [id number] 10mg Take 1 [facility] rine 10 mg 9-30 tablet by ity of tablet 00:00: mouth 3 [place] 00 (three) Medical times Branch daily. METFORMIN 2018-0 Yes [id number] TAKE 1 [facility] [place] 500 mg 9-30 TABLET BY ity o f 24 hr 00:00: MOUTH [place] tablet 00 EVERY DAY Medical WITH Branch BREAKFAST cyclobenzap Yes [id number] 10mg Take 1 [facility] rine 10 mg 9-30 tablet by ity of tablet 00:00: mouth 3 [place] 00 (three) Medical times Branch daily. METFORMIN 2018-0 Yes [id number] TAKE 1 [facility] [place] 500 mg 9-30 TABLET BY ity o f 24 hr 00:00: MOUTH [place] tablet 00 EVERY DAY Medical WITH Branch BREAKFAST cyclobenzap Yes [id number] 10mg Take 1 [facility] rine 10 mg 9-30 tablet by [facility] tablet 00:00: mouth 3 [place] 00 (three) Medical times Branch daily. METFORMIN 2018-0 Yes [id number] TAKE 1 [facility] [place] ER 500 mg 9-30 TABLET BY it[facility] o f 24 hr 00:00: MOUTH [place] tablet 00 EVERY DAY Medical WITH Branch BREAKFAST cyclobenzap Yes [id number] 10mg Take 1 [facility] rine 10 mg 9-30 tablet by [facility] of tablet 00:00: mouth 3 [place] 00 (three) Medical times Branch daily. METFORMIN 2019-0 Yes [id number] TAKE 1 [facility] [place] ER 500 mg 9-30 TABLET BY [facility] o f 24 hr 00:00: MOUTH [place] tablet 00 EVERY DAY Medical WITH Branch BREAKFAST cyclobenzap Yes [id number] 10mg Take 1 [facility] rine 10 mg 9-30 tablet by [facility] of tablet 00:00: mouth 3 [place] 00 (three) Medical times Branch daily. cyclobenzap Yes [id number] 10mg Take 1 [facility] r[facility] 10 mg 9-30 tablet by [facility] of tablet 00:00: mouth 3 [place] 00 (three) Medical times Branch daily. cyclobenzap Yes [id number] 10mg Take 1 [facility] r[facility] 10 mg 9-30 tablet by [facility] of tablet 00:00: mouth 3 [place] 00 (three) Medical times Branch daily. cyclobenzap 2020- No [id number] 10mg Take 1 [facility] r[facility] 10 mg 9-30 10-05 tablet by [facility] of tablet 00:00: 00:00 mouth 3 [place] 00 :00 (three) Medical times Branch daily. cyclobenzap 2020- No [id number] 10mg Take 1 [facility] r[facility] 10 mg 9-30 10-05 tablet by [facility] of tablet 00:00: 00:00 mouth 3 [place] 00 :00 (three) Medical times Branch daily. METFORMIN 2020- No [id number] TAKE 1 [facility] ER 500 mg 9-30 03-24 TABLET BY ity of 24 hr 00:00: 00:00 MOUTH [place] tablet 00 :00 EVERY DAY Medical WITH Branch BREAKFAST METFORMIN 2020- No [id number] TAKE 1 [facility] ER 500 mg 9-30 03-24 TABLET BY [facility]y of 24 hr 00:00: 00:00 MOUTH [place] tablet 00 :00 EVERY DAY Medical WITH Branch BREAKFAST naproxen 2020- No [id number] 500mg Take 1 [facility] (NAPROSYN) 9-30 02-13 tablet by [facility] of 500 mg 00:00: 00:00 mouth 2 [place] tablet 00 :00 (two) Medical times Branch daily with meals. naproxen 2020- No [id number] 500mg Take 1 [facility] (NAPROSYN) 9-30 02-13 tablet by it[facility] of 500 mg 00:00: 00:00 mouth 2 [place] tablet 00 :00 (two) Medical times Branch daily with meals. peg-electro Yes [id number] 4000mL Take 4,000 [facility] lyte soln 9-20 mL by ity of [id number] 00:00: mouth [place] .74 -5.86 00 SEE-INSTRU Medi kacey gram CTIONS. [place] solution Take as directed Diclofenac Yes [id number] Apply 2 to [facility] Sodium 1 % 9-16 4 grams ity of gel 00:00: 3-4 times [place] 00 daily as Medical needed. Branch Diclofenac Yes [id number] Apply 2 to [facility] Sodium 1 % 9-16 4 grams ity of gel 00:00: 3-4 times [place] 00 daily as Medical needed. Branch Diclofenac Yes [id number] Apply 2 to [facility] Sodium 1 % 9-16 4 grams ity of gel 00:00: 3-4 times [place] 00 daily as Medical needed. Branch Diclofenac Yes [id number] Apply 2 to [facility] Sodium 1 % 9-16 4 grams ity of gel 00:00: 3-4 times [place] 00 daily as Medical needed. Branch Diclofenac Yes [id number] Apply 2 to [facility] Sodium 1 % 9-16 4 grams ity of gel 00:00: 3-4 times [place] 00 daily as Medical needed. Branch Diclofenac Yes [id number] Apply 2 to [facility] Sodium 1 % 9-16 4 grams ity of gel 00:00: 3-4 times [place] 00 daily as Medical needed. Branch Diclofenac Yes [id number] Apply 2 to [facility] Sodium 1 % 9-16 4 grams ity of gel 00:00: 3-4 times [place] 00 daily as Medical needed. Branch Diclofenac Yes [id number] Apply 2 to [facility] Sodium 1 % 9-16 4 grams ity of gel 00:00: 3-4 times [place] 00 daily as Medical needed. Branch Diclofenac Yes [id number] Apply 2 to [facility] Sodium 1 % 9-16 4 grams ity of gel 00:00: 3-4 times [place] 00 daily as Medical needed. Branch Diclofenac Yes [id number] Apply 2 to [facility] Sodium 1 % 9-16 4 grams ity of gel 00:00: 3-4 times [place] 00 daily as Medical needed. Branch Diclofenac Yes [id number] Apply 2 to [facility] Sodium 1 % 9-16 4 grams ity of gel 00:00: 3-4 times [place] 00 daily as Medical needed. Branch Diclofenac Yes [id number] Apply 2 to [facility] Sodium 1 % 9-16 4 grams ity of gel 00:00: 3-4 times [place] 00 daily as Medical needed. Branch Diclofenac Yes [id number] Apply 2 to [facility] Sodium 1 % 9-16 4 grams ity of gel 00:00: 3-4 times [place] 00 daily as Medical needed. Branch Diclofenac Yes [id number] Apply 2 to [facility] Sodium 1 % 9-16 4 grams ity of gel 00:00: 3-4 times [place] 00 daily as Medical needed. Branch Diclofenac Yes [id number] Apply 2 to [facility] Sodium 1 % 9-16 4 grams ity of gel 00:00: 3-4 times [place] 00 daily as Medical needed. Branch Diclofenac Yes [id number] Apply 2 to [facility] Sodium 1 % 9-16 4 grams ity of gel 00:00: 3-4 times [place] 00 daily as Medical needed. Branch Diclofenac Yes [id number] Apply 2 to [facility] Sodium 1 % 9-16 4 grams ity of gel 00:00: 3-4 times [place] 00 daily as Medical needed. Branch Diclofenac Yes [id number] Apply 2 to [facility] Sodium 1 % 9-16 4 grams ity of gel 00:00: 3-4 times [place] 00 daily as Medical needed. Branch Diclofenac Yes [id number] Apply 2 to [facility] Sodium 1 % 9-16 4 grams ity of gel 00:00: 3-4 times [place] 00 daily as Medical needed. Branch Diclofenac Yes [id number] Apply 2 to [facility] Sodium 1 % 9-16 4 grams ity of gel 00:00: 3-4 times [place] 00 daily as Medical needed. Branch Diclofenac Yes [id number] Apply 2 to [facility] Sodium 1 % 9-16 4 grams ity of gel 00:00: 3-4 times [place] 00 daily as Medical needed. Branch Diclofenac Yes [id number] Apply 2 to [facility] Sodium 1 % 9-16 4 grams ity of gel 00:00: 3-4 times [place] 00 daily as Medical needed. Branch Diclofenac Yes [id number] Apply 2 to [facility] Sodium 1 % 9-16 4 grams ity of gel 00:00: 3-4 times [place] 00 daily as Medical needed. Branch Diclofenac Yes [id number] Apply 2 to [facility] Sodium 1 % 9-16 4 grams ity of gel 00:00: 3-4 times [place] 00 daily as Medical needed. Branch Diclofenac Yes [id number] Apply 2 to [facility] Sodium 1 % 9-16 4 grams ity of gel 00:00: 3-4 times [place] 00 daily as Medical needed. Branch Diclofenac Yes [id number] Apply 2 to [facility] Sodium 1 % 9-16 4 grams ity of gel 00:00: 3-4 times [place] 00 daily as Medical needed. Branch Diclofenac Yes [id number] Apply 2 to [facility] Sodium 1 % 9-16 4 grams [facility]y of gel 00:00: 3-4 times [place] 00 daily as Medical needed. Branch Diclofenac Yes [id number] Apply 2 to [facility] Sodium 1 % 9-16 4 grams ity of gel 00:00: 3-4 times [place] 00 daily as Medical needed. Branch Diclofenac Yes [id number] Apply 2 to [facility] Sodium 1 % 9-16 4 grams ity of gel 00:00: 3-4 times [place] 00 daily as Medical needed. Branch Diclofenac Yes [id number] Apply 2 to [facility] Sodium 1 % 9-16 4 grams ity of gel 00:00: 3-4 times [place] 00 daily as Medical needed. Branch Diclofenac Yes [id number] Apply 2 to [facility] Sodium 1 % 9-16 4 grams ity of gel 00:00: 3-4 times [place] 00 daily as Medical needed. Branch Diclofenac Yes [id number] Apply 2 to [facility] Sodium 1 % 9-16 4 grams ity of gel 00:00: 3-4 times [place] 00 daily as Medical needed. Branch Diclofenac Yes [id number] Apply 2 to [facility] Sodium 1 % 9-16 4 grams ity of gel 00:00: 3-4 times [place] 00 daily as Medical needed. Branch Diclofenac Yes [id number] Apply 2 to [facility] Sodium 1 % 9-16 4 grams ity of gel 00:00: 3-4 times [place] 00 daily as Medical needed. Branch Diclofenac Yes [id number] Apply 2 to [facility] Sodium 1 % 9-16 4 grams ity of gel 00:00: 3-4 times [place] 00 daily as Medical needed. Branch Diclofenac Yes [id number] Apply 2 to [facility] Sodium 1 % 9-16 4 grams ity of gel 00:00: 3-4 times [place] 00 daily as Medical needed. Branch Diclofenac Yes [id number] Apply 2 to [facility] Sodium 1 % 9-16 4 grams ity of gel 00:00: 3-4 times [place] 00 daily as Medical needed. Branch Diclofenac Yes [id number] Apply 2 to [facility] Sodium 1 % 9-16 4 grams ity of gel 00:00: 3-4 times [place] 00 daily as Medical needed. Branch Diclofenac Yes [id number] Apply 2 to [facility] Sodium 1 % 9-16 4 grams ity of gel 00:00: 3-4 times [place] 00 daily as Medical needed. Branch Diclofenac Yes [id number] Apply 2 to [facility] Sodium 1 % 9-16 4 grams ity of gel 00:00: 3-4 times [place] 00 daily as Medical needed. Branch Diclofenac Yes [id number] Apply 2 to [facility] Sodium 1 % 9-16 4 grams ity of gel 00:00: 3-4 times [place] 00 daily as Medical needed. Branch Diclofenac Yes [id number] Apply 2 to [facility] Sodium 1 % 9-16 4 grams ity of gel 00:00: 3-4 times [place] 00 daily as Medical needed. Branch Diclofenac Yes [id number] Apply 2 to [facility] Sodium 1 % 9-16 4 grams ity of gel 00:00: 3-4 times [place] 00 daily as Medical needed. Branch Diclofenac Yes [id number] Apply 2 to [facility] Sodium 1 % 9-16 4 grams ity of gel 00:00: 3-4 times [place] 00 daily as Medical needed. Branch Diclofenac Yes [id number] Apply 2 to [facility] Sodium 1 % 9-16 4 grams ity of gel 00:00: 3-4 times [place] 00 daily as Medical needed. Branch Diclofenac Yes [id number] Apply 2 to [facility] Sodium 1 % 9-16 4 grams ity of gel 00:00: 3-4 times [place] 00 daily as Medical needed. Branch Diclofenac Yes [id number] Apply 2 to [facility] Sodium 1 % 9-16 4 grams ity of gel 00:00: 3-4 times [place] 00 daily as Medical needed. Branch Diclofenac Yes [id number] Apply 2 to [facility] Sodium 1 % 9-16 4 grams ity of gel 00:00: 3-4 times [place] 00 daily as Medical needed. Branch Diclofenac Yes [id number] Apply 2 to [facility] Sodium 1 % 9-16 4 grams ity of gel 00:00: 3-4 times [place] 00 daily as Medical needed. Branch Diclofenac Yes [id number] Apply 2 to [facility] Sodium 1 % 9-16 4 grams ity of gel 00:00: 3-4 times [place] 00 daily as Medical needed. Branch Diclofenac Yes [id number] Apply 2 to [facility] Sodium 1 % 9-16 4 grams ity of gel 00:00: 3-4 times [place] 00 daily as Medical needed. Branch Diclofenac Yes [id number] Apply 2 to [facility] Sodium 1 % 9-16 4 grams ity of gel 00:00: 3-4 times [place] 00 daily as Medical needed. Branch Diclofenac Yes [id number] Apply 2 to [facility] Sodium 1 % 9-16 4 grams ity of gel 00:00: 3-4 times [place] 00 daily as Medical needed. Branch Diclofenac Yes [id number] Apply 2 to [facility] Sodium 1 % 9-16 4 grams ity of gel 00:00: 3-4 times [place] 00 daily as Medical needed. Branch Diclofenac Yes [id number] Apply 2 to [facility] Sodium 1 % 9-16 4 grams ity of gel 00:00: 3-4 times [place] 00 daily as Medical needed. Branch Diclofenac Yes [id number] Apply 2 to [facility] Sodium 1 % 9-16 4 grams ity of gel 00:00: 3-4 times [place] 00 daily as Medical needed. Branch Diclofenac Yes [id number] Apply 2 to [facility] Sodium 1 % 9-16 4 grams ity of gel 00:00: 3-4 times [place] 00 daily as Medical needed. Branch Diclofenac Yes [id number] Apply 2 to [facility] Sodium 1 % 9-16 4 grams ity of gel 00:00: 3-4 times [place] 00 daily as Medical needed. Branch Diclofenac Yes [id number] Apply 2 to [facility] Sodium 1 % 9-16 4 grams ity of gel 00:00: 3-4 times [place] 00 daily as Medical needed. Branch Diclofenac Yes [id number] Apply 2 to [facility] Sodium 1 % 9-16 4 grams ity of gel 00:00: 3-4 times [place] 00 daily as Medical needed. Branch Diclofenac Yes [id number] Apply 2 to [facility] Sodium 1 % 9-16 4 grams ity of gel 00:00: 3-4 times [place] 00 daily as Medical needed. [place] Diclofenac Yes [id number] Apply 2 to [facility] Sodium 1 % 9-16 4 grams ity of gel 00:00: 3-4 times [place] 00 daily as Medical needed. [place] Diclofenac Yes [id number] Apply 2 to [facility] Sodium 1 % 9-16 4 grams ity of gel 00:00: 3-4 times [place] 00 daily as Medical needed. [place] Diclofenac Yes [id number] Apply 2 to [facility] Sodium 1 % 9-16 4 grams ity of gel 00:00: 3-4 times [place] 00 daily as Medical needed. [place] Diclofenac Yes [id number] Apply 2 to [facility] Sodium 1 % 9-16 4 grams ity of gel 00:00: 3-4 times [place] 00 daily as Medical needed. [place] Diclofenac Yes [id number] Apply 2 to [facility] Sodium 1 % 9-16 4 grams ity of gel 00:00: 3-4 times [place] 00 daily as Medical needed. [place] Diclofenac Yes [id number] Apply 2 to [facility] Sodium 1 % 9-16 4 grams ity of gel 00:00: 3-4 times [place] 00 daily as Medical needed. [place] Diclofenac Yes [id number] Apply 2 to [facility] Sodium 1 % 9-16 4 grams ity of gel 00:00: 3-4 times [place] 00 daily as Medical needed. [place] Diclofenac Yes [id number] Apply 2 to [facility] Sodium 1 % 9-16 4 grams ity of gel 00:00: 3-4 times [place] 00 daily as Medical needed. [place] methocarbam Yes [id number] 750mg Take 1 [facility] ol 9-16 tablet by ity of (ROBAXIN-75 00:00: mouth 4 [place] 0) 750 mg 00 (four) Medical tablet times [place] daily as needed for Pain (scale 1-3). Diclofenac Yes [id number] Apply 2 to [facility] Sodium 1 % 9-16 4 grams ity of gel 00:00: 3-4 times [place] 00 daily as Medical needed. [place] Diclofenac Yes [id number] Apply 2 to [facility] Sodium 1 % 9-16 4 grams ity of gel 00:00: 3-4 times [place] 00 daily as Medical needed. [place] Diclofenac Yes [id number] Apply 2 to [facility] Sodium 1 % 9-16 4 grams ity of gel 00:00: 3-4 times [place] 00 daily as Medical needed. [place] Diclofenac Yes [id number] Apply 2 to [facility] Sodium 1 % 9-16 4 grams ity of gel 00:00: 3-4 times [place] 00 daily as Medical needed. [place] Diclofenac Yes [id number] Apply 2 to [facility] Sodium 1 % 9-16 4 grams ity of gel 00:00: 3-4 times [place] 00 daily as Medical needed. [place] Diclofenac Yes [id number] Apply 2 to [facility] Sodium 1 % 9-16 4 grams ity of gel 00:00: 3-4 times [place] 00 daily as Medical needed. [place] Diclofenac Yes [id number] Apply 2 to [facility] Sodium 1 % 9-16 4 grams ity of gel 00:00: 3-4 times [place] 00 daily as Medical needed. [place] Diclofenac Yes [id number] Apply 2 to [facility] Sodium 1 % 9-16 4 grams ity of gel 00:00: 3-4 times [place] 00 daily as Medical needed. [place] Diclofenac Yes [id number] Apply 2 to [facility] Sodium 1 % 9-16 4 grams ity of gel 00:00: 3-4 times [place] 00 daily as Medical needed. [place] Diclofenac Yes [id number] Apply 2 to [facility] Sodium 1 % 9-16 4 grams ity of gel 00:00: 3-4 times [place] 00 daily as Medical needed. [place] methocarbam Yes [id number] 750mg Take 1 [facility] ol 9-16 tablet by ity of (ROBAXIN-75 00:00: mouth 4 [place] 0) 750 mg 00 (four) Medical tablet times [place] daily as needed for Pain (scale 1-3). Diclofenac Yes [id number] Apply 2 to [facility] Sodium 1 % 9-16 4 grams ity of gel 00:00: 3-4 times [place] 00 daily as Medical needed. [place] Diclofenac Yes [id number] Apply 2 to [facility] Sodium 1 % 9-16 4 grams ity of gel 00:00: 3-4 times [place] 00 daily as Medical needed. [place] Diclofenac Yes [id number] Apply 2 to [facility] Sodium 1 % 9-16 4 grams ity of gel 00:00: 3-4 times [place] 00 daily as Medical needed. [place] Diclofenac Yes [id number] Apply 2 to [facility] Sodium 1 % 9-16 4 grams ity of gel 00:00: 3-4 times [place] 00 daily as Medical needed. [place] Diclofenac Yes [id number] Apply 2 to [facility] Sodium 1 % 9-16 4 grams ity of gel 00:00: 3-4 times [place] 00 daily as Medical needed. [place] Diclofenac Yes [id number] Apply 2 to [facility] Sodium 1 % 9-16 4 grams ity of gel 00:00: 3-4 times [place] 00 daily as Medical needed. [place] Diclofenac Yes [id number] Apply 2 to [facility] Sodium 1 % 9-16 4 grams ity of gel 00:00: 3-4 times [place] 00 daily as Medical needed. [place] Diclofenac Yes [id number] Apply 2 to [facility] Sodium 1 % 9-16 4 grams ity of gel 00:00: 3-4 times [place] 00 daily as Medical needed. [place] Diclofenac Yes [id number] Apply 2 to [facility] Sodium 1 % 9-16 4 grams ity of gel 00:00: 3-4 times [place] 00 daily as Medical needed. [place] Diclofenac Yes [id number] Apply 2 to [facility] Sodium 1 % 9-16 4 grams ity of gel 00:00: 3-4 times [place] 00 daily as Medical needed. [place] methocarbam Yes [id number] 750mg Take 1 [facility] ol 9-16 tablet by ity of (ROBAXIN-75 00:00: mouth 4 [place] 0) 750 mg 00 (four) Medical tablet times [place] daily as needed for Pain (scale 1-3). Diclofenac Yes [id number] Apply 2 to [facility] Sodium 1 % 9-16 4 grams ity of gel 00:00: 3-4 times [place] 00 daily as Medical needed. [place] Diclofenac Yes [id number] Apply 2 to [facility] Sodium 1 % 9-16 4 grams ity of gel 00:00: 3-4 times [place] 00 daily as Medical needed. [place] Diclofenac Yes [id number] Apply 2 to [facility] Sodium 1 % 9-16 4 grams ity of gel 00:00: 3-4 times [place] 00 daily as Medical needed. [place] Diclofenac Yes [id number] Apply 2 to [facility] Sodium 1 % 9-16 4 grams ity of gel 00:00: 3-4 times [place] 00 daily as Medical needed. [place] Diclofenac Yes [id number] Apply 2 to [facility] Sodium 1 % 9-16 4 grams ity of gel 00:00: 3-4 times [place] 00 daily as Medical needed. [place] Diclofenac Yes [id number] Apply 2 to [facility] Sodium 1 % 9-16 4 grams ity of gel 00:00: 3-4 times [place] 00 daily as Medical needed. [place] Diclofenac Yes [id number] Apply 2 to [facility] Sodium 1 % 9-16 4 grams ity of gel 00:00: 3-4 times [place] 00 daily as Medical needed. [place] Diclofenac Yes [id number] Apply 2 to [facility] Sodium 1 % 9-16 4 grams ity of gel 00:00: 3-4 times [place] 00 daily as Medical needed. [place] methocarbam Yes [id number] 750mg Take 1 [facility] ol 9-16 tablet by ity of (ROBAXIN-75 00:00: mouth 4 [place] 0) 750 mg 00 (four) Medical tablet times [place] daily as needed for Pain (scale 1-3). Diclofenac Yes [id number] Apply 2 to [facility] Sodium 1 % 9-16 4 grams ity of gel 00:00: 3-4 times [place] 00 daily as Medical needed. [place] Diclofenac Yes [id number] Apply 2 to [facility] Sodium 1 % 9-16 4 grams ity of gel 00:00: 3-4 times [place] 00 daily as Medical needed. [place] Diclofenac Yes [id number] Apply 2 to [facility] Sodium 1 % 9-16 4 grams ity of gel 00:00: 3-4 times [place] 00 daily as Medical needed. [place] Diclofenac Yes [id number] Apply 2 to [facility] Sodium 1 % 9-16 4 grams ity of gel 00:00: 3-4 times [place] 00 daily as Medical needed. [place] Diclofenac Yes [id number] Apply 2 to [facility] Sodium 1 % 9-16 4 grams ity of gel 00:00: 3-4 times [place] 00 daily as Medical needed. [place] Diclofenac Yes [id number] Apply 2 to [facility] Sodium 1 % 9-16 4 grams ity of gel 00:00: 3-4 times [place] 00 daily as Medical needed. [place] Diclofenac Yes [id number] Apply 2 to [facility] Sodium 1 % 9-16 4 grams ity of gel 00:00: 3-4 times [place] 00 daily as Medical needed. [place] Diclofenac Yes [id number] Apply 2 to [facility] Sodium 1 % 9-16 4 grams ity of gel 00:00: 3-4 times [place] 00 daily as Medical needed. [place] methocarbam Yes [id number] 750mg Take 1 [facility] ol 9-16 tablet by ity of (ROBAXIN-75 00:00: mouth 4 [place] 0) 750 mg 00 (four) Medical tablet times Branch daily as needed for Pain (scale 1-3). Diclofenac Yes [id number] Apply 2 to [facility] Sodium 1 % 9-16 4 grams ity of gel 00:00: 3-4 times [place] 00 daily as Medical needed. [place] Diclofenac Yes [id number] Apply 2 to [facility] Sodium 1 % 9-16 4 grams ity of gel 00:00: 3-4 times [place] 00 daily as Medical needed. [place] Diclofenac Yes [id number] Apply 2 to [facility] Sodium 1 % 9-16 4 grams ity of gel 00:00: 3-4 times [place] 00 daily as Medical needed. [place] Diclofenac Yes [id number] Apply 2 to [facility] Sodium 1 % 9-16 4 grams ity of gel 00:00: 3-4 times [place] 00 daily as Medical needed. [place] Diclofenac Yes [id number] Apply 2 to [facility] Sodium 1 % 9-16 4 grams ity of gel 00:00: 3-4 times [place] 00 daily as Medical needed. [place] Diclofenac Yes [id number] Apply 2 to [facility] Sodium 1 % 9-16 4 grams ity of gel 00:00: 3-4 times [place] 00 daily as Medical needed. [place] Diclofenac Yes [id number] Apply 2 to [facility] Sodium 1 % 9-16 4 grams ity of gel 00:00: 3-4 times [place] 00 daily as Medical needed. [place] methocarbam Yes [id number] 750mg Take 1 [facility] ol 9-16 tablet by ity of (ROBAXIN-75 00:00: mouth 4 [place] 0) 750 mg 00 (four) Medical tablet times Branch daily as needed for Pain (scale 1-3). Diclofenac Yes [id number] Apply 2 to [facility] Sodium 1 % 9-16 4 grams ity of gel 00:00: 3-4 times [place] 00 daily as Medical needed. Branch Diclofenac Yes [id number] Apply 2 to [facility] Sodium 1 % 9-16 4 grams ity of gel 00:00: 3-4 times [place] 00 daily as Medical needed. Branch Diclofenac Yes [id number] Apply 2 to [facility] Sodium 1 % 9-16 4 grams ity of gel 00:00: 3-4 times [place] 00 daily as Medical needed. Branch Diclofenac Yes [id number] Apply 2 to [facility] Sodium 1 % 9-16 4 grams ity of gel 00:00: 3-4 times [place] 00 daily as Medical needed. Branch Diclofenac Yes [id number] Apply 2 to [facility] Sodium 1 % 9-16 4 grams ity of gel 00:00: 3-4 times [place] 00 daily as Medical needed. Branch Diclofenac Yes [id number] Apply 2 to [facility] Sodium 1 % 9-16 4 grams ity of gel 00:00: 3-4 times [place] 00 daily as Medical needed. Branch Diclofenac Yes [id number] Apply 2 to [facility] Sodium 1 % 9-16 4 grams ity of gel 00:00: 3-4 times [place] 00 daily as Medical needed. Branch Diclofenac Yes [id number] Apply 2 to [facility] Sodium 1 % 9-16 4 grams ity of gel 00:00: 3-4 times [place] 00 daily as Medical needed. Branch Diclofenac Yes [id number] Apply 2 to [facility] Sodium 1 % 9-16 4 grams ity of gel 00:00: 3-4 times [place] 00 daily as Medical needed. Branch Diclofenac Yes [id number] Apply 2 to [facility] Sodium 1 % 9-16 4 grams ity of gel 00:00: 3-4 times [place] 00 daily as Medical needed. Branch Diclofenac Yes [id number] Apply 2 to [facility] Sodium 1 % 9-16 4 grams ity of gel 00:00: 3-4 times [place] 00 daily as Medical needed. Branch Diclofenac Yes [id number] Apply 2 to [facility] Sodium 1 % 9-16 4 grams ity of gel 00:00: 3-4 times [place] 00 daily as Medical needed. Branch Diclofenac Yes [id number] Apply 2 to [facility] Sodium 1 % 9-16 4 grams ity of gel 00:00: 3-4 times [place] 00 daily as Medical needed. [place] Diclofenac Yes [id number] Apply 2 to [facility] Sodium 1 % 9-16 4 grams ity of gel 00:00: 3-4 times [place] 00 daily as Medical needed. [place] Diclofenac Yes [id number] Apply 2 to [facility] Sodium 1 % 9-16 4 grams ity of gel 00:00: 3-4 times [place] 00 daily as Medical needed. [place] Diclofenac Yes [id number] Apply 2 to [facility] Sodium 1 % 9-16 4 grams ity of gel 00:00: 3-4 times [place] 00 daily as Medical needed. [place] Diclofenac Yes [id number] Apply 2 to [facility] Sodium 1 % 9-16 4 grams ity of gel 00:00: 3-4 times [place] 00 daily as Medical needed. [place] Diclofenac Yes [id number] Apply 2 to [facility] Sodium 1 % 9-16 4 grams ity of gel 00:00: 3-4 times [place] 00 daily as Medical needed. [place] Diclofenac Yes [id number] Apply 2 to [facility] Sodium 1 % 9-16 4 grams ity of gel 00:00: 3-4 times [place] 00 daily as Medical needed. [place] Diclofenac Yes [id number] Apply 2 to [facility] Sodium 1 % 9-16 4 grams ity of gel 00:00: 3-4 times [place] 00 daily as Medical needed. [place] Diclofenac Yes [id number] Apply 2 to [facility] Sodium 1 % 9-16 4 grams ity of gel 00:00: 3-4 times [place] 00 daily as Medical needed. [place] Diclofenac Yes [id number] Apply 2 to [facility] Sodium 1 % 9-16 4 grams ity of gel 00:00: 3-4 times [place] 00 daily as Medical needed. [place] Diclofenac Yes [id number] Apply 2 to [facility] Sodium 1 % 9-16 4 grams ity of gel 00:00: 3-4 times [place] 00 daily as Medical needed. [place] Diclofenac Yes [id number] Apply 2 to [facility] Sodium 1 % 9-16 4 grams ity of gel 00:00: 3-4 times [place] 00 daily as Medical needed. [place] TIZANIDINE Yes [id number] 2mg TAKE 1-2 [facility] 2 mg tablet 7-24 TABLETS BY it y of 00:00: MOUTH [place] 00 EVERY 8 Medical (EIGHT) Branch HOURS NEEDED (MUSCLE PAIN OR SPASM). TIZANIDINE 2019-0 Yes [id number] 2mg TAKE 1-2 [facility] 2 mg tablet 7-24 TABLETS BY it y of 00:00: MOUTH [place] 00 EVERY 8 Medical (EIGHT) Branch HOURS NEEDED (MUSCLE PAIN OR SPASM). TIZANIDINE 2019-0 Yes [id number] 2mg TAKE 1-2 [facility] 2 mg tablet 7-24 TABLETS BY it y of 00:00: MOUTH [place] 00 EVERY 8 Medical (EIGHT) Branch HOURS NEEDED (MUSCLE PAIN OR SPASM). TIZANIDINE 2019-0 Yes [id number] 2mg TAKE 1-2 [facility] 2 mg tablet 7-24 TABLETS BY it y of 00:00: MOUTH [place] 00 EVERY 8 Medical (EIGHT) Branch HOURS NEEDED (MUSCLE PAIN OR SPASM). TIZANIDINE 2018-0 Yes [id number] 2mg TAKE 1-2 [facility] 2 mg tablet 7-24 TABLETS BY it y of 00:00: MOUTH [place] 00 EVERY 8 Medical (EIGHT) Branch HOURS NEEDED (MUSCLE PAIN OR SPASM). TIZANIDINE 2018-0 Yes [id number] 2mg TAKE 1-2 [facility] 2 mg tablet 7-24 TABLETS BY it y of 00:00: MOUTH [place] 00 EVERY 8 Medical (EIGHT) Branch HOURS NEEDED (MUSCLE PAIN OR SPASM). TIZANIDINE 2018-0 Yes [id number] 2mg TAKE 1-2 [facility] 2 mg tablet 7-24 TABLETS BY it y of 00:00: MOUTH [place] 00 EVERY 8 Medical (EIGHT) Branch HOURS NEEDED (MUSCLE PAIN OR SPASM). TIZANIDINE 2019-0 Yes [id number] 2mg TAKE 1-2 [facility] 2 mg tablet 7-24 TABLETS BY it y of 00:00: MOUTH [place] 00 EVERY 8 Medical (EIGHT) Branch HOURS NEEDED (MUSCLE PAIN OR SPASM). TIZANIDINE 2019-0 Yes [id number] 2mg TAKE 1-2 [facility] 2 mg tablet 7-24 TABLETS BY it y of 00:00: MOUTH [place] 00 EVERY 8 Medical (EIGHT) Branch HOURS NEEDED (MUSCLE PAIN OR SPASM). TIZANIDINE 2019-0 Yes [id number] 2mg TAKE 1-2 [facility] 2 mg tablet 7-24 TABLETS BY it y of 00:00: MOUTH [place] 00 EVERY 8 Medical (EIGHT) Branch HOURS NEEDED (MUSCLE PAIN OR SPASM). TIZANIDINE 2019-0 Yes [id number] 2mg TAKE 1-2 [facility] 2 mg tablet 7-24 TABLETS BY it y of 00:00: MOUTH [place] 00 EVERY 8 Medical (EIGHT) Branch HOURS NEEDED (MUSCLE PAIN OR SPASM). TIZANIDINE 2019-0 Yes [id number] 2mg TAKE 1-2 [facility] 2 mg tablet 7-24 TABLETS BY it y of 00:00: MOUTH [place] 00 EVERY 8 Medical (EIGHT) Branch HOURS NEEDED (MUSCLE PAIN OR SPASM). TIZANIDINE 2019-0 Yes [id number] 2mg TAKE 1-2 [facility] 2 mg tablet 7-24 TABLETS BY it y of 00:00: MOUTH [place] 00 EVERY 8 Medical (EIGHT) Branch HOURS NEEDED (MUSCLE PAIN OR SPASM). ibandronate 2018-0 Yes [id number] 150mg Take 1 [facility] 150 mg 7-23 tablet by [facility] of tablet 00:00: mouth once [place] 00 every Medical month. Branch ibandronate 2019-0 Yes [id number] 150mg Take 1 [facility] 150 mg 7-23 tablet by [facility] of tablet 00:00: mouth once [place] 00 every Medical month. Branch ibandronate 2019-0 Yes [id number] 150mg Take 1 [facility] 150 mg 7-23 tablet by [facility] of tablet 00:00: mouth once [place] 00 every Medical month. Branch ibandronate 2019-0 Yes [id number] 150mg Take 1 [facility] 150 mg 7-23 tablet by [facility] of tablet 00:00: mouth once [place] 00 every Medical month. Branch ibandronate 2019-0 Yes [id number] 150mg Take 1 [facility] 150 mg 7-23 tablet by [facility] of tablet 00:00: mouth once [place] 00 every Medical month. Branch ibandronate 2019-0 Yes [id number] 150mg Take 1 [facility] 150 mg 7-23 tablet by [facility] of tablet 00:00: mouth once [place] 00 every Medical month. Branch ibandronate 2019-0 Yes [id number] 150mg Take 1 [facility] 150 mg 7-23 tablet by [facility] of tablet 00:00: mouth once [place] 00 every Medical month. Branch ibandronate 2019-0 Yes [id number] 150mg Take 1 [facility] 150 mg 7-23 tablet by [facility] of tablet 00:00: mouth once [place] 00 every Medical month. Branch ibandronate 2019-0 Yes [id number] 150mg Take 1 [facility] 150 mg 7-23 tablet by [facility] of tablet 00:00: mouth once [place] 00 every Medical month. Branch ibandronate 2019-0 Yes [id number] 150mg Take 1 [facility] 150 mg 7-23 tablet by [facility] of tablet 00:00: mouth once [place] 00 every Medical month. Branch ibandronate 2019-0 Yes [id number] 150mg Take 1 [facility] 150 mg 7-23 tablet by [facility] of tablet 00:00: mouth once [place] 00 every Medical month. Branch ibandronate 2019-0 Yes [id number] 150mg Take 1 [facility] 150 mg 7-23 tablet by [facility] of tablet 00:00: mouth once [place] 00 every Medical month. Branch ibandronate 2019-0 Yes [id number] 150mg Take 1 [facility] 150 mg 7-23 tablet by [facility] of tablet 00:00: mouth once [place] 00 every Medical month. Branch ibandronate 2019-0 Yes [id number] 150mg Take 1 [facility] 150 mg 7-23 tablet by [facility] of tablet 00:00: mouth once [place] 00 every Medical month. Branch ibandronate 2019-0 Yes [id number] 150mg Take 1 [facility] 150 mg 7-23 tablet by [facility] of tablet 00:00: mouth once [place] 00 every Medical month. Branch ibandronate 2019-0 Yes [id number] 150mg Take 1 [facility] 150 mg 7-23 tablet by [facility] of tablet 00:00: mouth once [place] 00 every Medical month. Branch ibandronate 2019-0 Yes [id number] 150mg Take 1 [facility] 150 mg 7-23 tablet by [facility] of tablet 00:00: mouth once [place] 00 every Medical month. Branch ibandronate 2019-0 Yes [id number] 150mg Take 1 [facility] 150 mg 7-23 tablet by [facility] of tablet 00:00: mouth once [place] 00 every Medical month. Branch ibandronate 2019-0 Yes [id number] 150mg Take 1 [facility] 150 mg 7-23 tablet by [facility] of tablet 00:00: mouth once [place] 00 every Medical month. Branch ibandronate 2019-0 Yes [id number] 150mg Take 1 [facility] 150 mg 7-23 tablet by [facility] of tablet 00:00: mouth once [place] 00 every Medical month. Branch ibandronate 2019-0 Yes [id number] 150mg Take 1 [facility] 150 mg 7-23 tablet by [facility] of tablet 00:00: mouth once [place] 00 every Medical month. Branch ibandronate 2019-0 Yes [id number] 150mg Take 1 [facility] 150 mg 7-23 tablet by [facility] of tablet 00:00: mouth once [place] 00 every Medical month. Branch ibandronate 2019-0 Yes [id number] 150mg Take 1 [facility] 150 mg 7-23 tablet by [facility] of tablet 00:00: mouth once [place] 00 every Medical month. Branch ibandronate 2019-0 Yes [id number] 150mg Take 1 [facility] 150 mg 7-23 tablet by [facility] of tablet 00:00: mouth once [place] 00 every Medical month. Branch ibandronate 2019-0 Yes [id number] 150mg Take 1 [facility] 150 mg 7-23 tablet by [facility] of tablet 00:00: mouth once [place] 00 every Medical month. Branch ibandronate 2019-0 Yes [id number] 150mg Take 1 [facility] 150 mg 7-23 tablet by [facility] of tablet 00:00: mouth once [place] 00 every Medical month. Branch ibandronate 2019-0 Yes [id number] 150mg Take 1 [facility] 150 mg 7-23 tablet by [facility] of tablet 00:00: mouth once [place] 00 every Medical month. Branch ibandronate 2019-0 Yes [id number] 150mg Take 1 [facility] 150 mg 7-23 tablet by [facility] of tablet 00:00: mouth once [place] 00 every Medical month. Branch ibandronate 2019-0 Yes [id number] 150mg Take 1 [facility] 150 mg 7-23 tablet by [facility] of tablet 00:00: mouth once [place] 00 every Medical month. Branch ibandronate 2019-0 Yes [id number] 150mg Take 1 [facility] 150 mg 7-23 tablet by [facility] of tablet 00:00: mouth once [place] 00 every Medical month. Branch ibandronate 2019-0 Yes [id number] 150mg Take 1 [facility] 150 mg 7-23 tablet by [facility] of tablet 00:00: mouth once [place] 00 every Medical month. Branch ibandronate 2019-0 Yes [id number] 150mg Take 1 [facility] 150 mg 7-23 tablet by [facility] of tablet 00:00: mouth once [place] 00 every Medical month. Branch ibandronate 2019-0 Yes [id number] 150mg Take 1 [facility] 150 mg 7-23 tablet by [facility] of tablet 00:00: mouth once [place] 00 every Medical month. Branch ibandronate 2019-0 Yes [id number] 150mg Take 1 [facility] 150 mg 7-23 tablet by [facility] of tablet 00:00: mouth once [place] 00 every Medical month. Branch ibandronate 2019-0 Yes [id number] 150mg Take 1 [facility] 150 mg 7-23 tablet by [facility] of tablet 00:00: mouth once [place] 00 every Medical month. Branch ibandronate 2019-0 Yes [id number] 150mg Take 1 [facility] 150 mg 7-23 tablet by [facility] of tablet 00:00: mouth once [place] 00 every Medical month. Branch ibandronate 2019-0 Yes [id number] 150mg Take 1 [facility] 150 mg 7-23 tablet by [facility] of tablet 00:00: mouth once [place] 00 every Medical month. Branch ibandronate 2019-0 Yes [id number] 150mg Take 1 [facility] 150 mg 7-23 tablet by [facility] of tablet 00:00: mouth once [place] 00 every Medical month. Branch ibandronate 2019-0 Yes [id number] 150mg Take 1 [facility] 150 mg 7-23 tablet by [facility] of tablet 00:00: mouth once [place] 00 every Medical month. Branch ibandronate 2019-0 Yes [id number] 150mg Take 1 [facility] 150 mg 7-23 tablet by [facility] of tablet 00:00: mouth once [place] 00 every Medical month. Branch ibandronate 2019-0 Yes [id number] 150mg Take 1 [facility] 150 mg 7-23 tablet by [facility] of tablet 00:00: mouth once [place] 00 every Medical month. Branch ibandronate 2019-0 Yes [id number] 150mg Take 1 [facility] 150 mg 7-23 tablet by [facility] of tablet 00:00: mouth once [place] 00 every Medical month. Branch ibandronate 2019-0 Yes [id number] 150mg Take 1 [facility] 150 mg 7-23 tablet by [facility] of tablet 00:00: mouth once [place] 00 every Medical month. Branch ibandronate 2019-0 Yes [id number] 150mg Take 1 [facility] 150 mg 7-23 tablet by [facility] of tablet 00:00: mouth once [place] 00 every Medical month. Branch ibandronate 2019-0 Yes [id number] 150mg Take 1 [facility] 150 mg 7-23 tablet by [facility] of tablet 00:00: mouth once [place] 00 every Medical month. Branch ibandronate 2019-0 Yes [id number] 150mg Take 1 [facility] 150 mg 7-23 tablet by [facility] of tablet 00:00: mouth once [place] 00 every Medical month. Branch ibandronate 2019- Yes [id number] 150mg Take 1 [facility] 150 mg 7-23 tablet by [facility] of tablet 00:00: mouth once [place] 00 every Medical month. Branch ibandronate 2018- Yes [id number] 150mg Take 1 [facility] 150 mg 7-23 tablet by [facility] of tablet 00:00: mouth once [place] 00 every Medical month. Branch ibandronate 2018- 2020- No [id number] 150mg Take 1 [facility] 150 mg 7-23 - tablet by [facility] tablet 00:00: 00:00 mouth once [place] 00 :00 every Medical month. Branch amLODIPine Yes [id number] 5mg Take 1 [facility] 5 mg tablet - tablet by [facility] of 00:00: mouth at [place] 00 bedtime. Medical Branch amLODIPine 2018- 2019- No [id number] 5mg Take 1 [facility] 5 mg tablet 03-18 tablet by it y of 00:00: 00:00 mouth at [place] 00 :00 bedtime. Medical Branch amLODIPine 2018- 2019- No [id number] 5mg Take 1 [facility] 5 mg tablet 03-18 tablet by it y of 00:00: 00:00 mouth at [place] 00 :00 bedtime. Medical Branch NEXIUM 40 Yes [id number] 40mg TAKE 1 U nivers mg capsule 6-25 CAPSULE BY ity of 00:00: MOUTH [place] 00 DAILY WITH Medical BREAKFAST. Branch BRAND MEDICALLY NECESSARY. NEXIUM 40 Yes [id number] 40mg TAKE 1 U nivers mg capsule 6-25 CAPSULE BY ity of 00:00: MOUTH [place] 00 DAILY WITH Medical BREAKFAST. Branch BRAND MEDICALLY NECESSARY. NEXIUM 40 Yes [id number] 40mg TAKE 1 U nivers mg capsule 6-25 CAPSULE BY ity of 00:00: MOUTH [place] 00 DAILY WITH Medical BREAKFAST. Branch BRAND MEDICALLY NECESSARY. NEXIUM 40 Yes [id number] 40mg TAKE 1 U nivers mg capsule 6-25 CAPSULE BY ity of 00:00: MOUTH [place] 00 DAILY WITH Medical BREAKFAST. Branch BRAND MEDICALLY NECESSARY. NEXIUM 40 Yes [id number] 40mg TAKE 1 U nivers mg capsule 6-25 CAPSULE BY ity of 00:00: MOUTH [place] 00 DAILY WITH Medical BREAKFAST. Branch BRAND MEDICALLY NECESSARY. NEXIUM 40 2019- Yes [id number] 40mg TAKE 1 [facility] nivers mg capsule 6-25 CAPSULE BY ity of 00:00: MOUTH [place] 00 DAILY WITH Medical BREAKFAST. Branch BRAND MEDICALLY NECESSARY. NEXIUM 40 0 Yes [id number] 40mg TAKE 1 [facility] nivers mg capsule 6-25 CAPSULE BY ity of 00:00: MOUTH [place] 00 DAILY WITH Medical BREAKFAST. Branch BRAND MEDICALLY NECESSARY. NEXIUM 40 Yes [id number] 40mg TAKE 1 [facility] nivers mg capsule 6-25 CAPSULE BY ity of 00:00: MOUTH [place] 00 DAILY WITH Medical BREAKFAST. Branch BRAND MEDICALLY NECESSARY. NEXIUM 40 Yes [id number] 40mg TAKE 1 [facility] nivers mg capsule 6-25 CAPSULE BY ity of 00:00: MOUTH [place] 00 DAILY WITH Medical BREAKFAST. Branch BRAND MEDICALLY NECESSARY. NEXIUM 40 Yes [id number] 40mg TAKE 1 [facility] nivers mg capsule 6-25 CAPSULE BY ity of 00:00: MOUTH [place] 00 DAILY WITH Medical BREAKFAST. Branch BRAND MEDICALLY NECESSARY. NEXIUM 40 Yes [id number] 40mg TAKE 1 [facility] nivers mg capsule 6-25 CAPSULE BY ity of 00:00: MOUTH [place] 00 DAILY WITH Medical BREAKFAST. Branch BRAND MEDICALLY NECESSARY. NEXIUM 40 Yes [id number] 40mg TAKE 1 [facility] nivers mg capsule 6-25 CAPSULE BY ity of 00:00: MOUTH [place] 00 DAILY WITH Medical BREAKFAST. Branch BRAND MEDICALLY NECESSARY. NEXIUM 40 Yes [id number] 40mg TAKE 1 [facility] nivers mg capsule 6-25 CAPSULE BY ity of 00:00: MOUTH [place] 00 DAILY WITH Medical BREAKFAST. Branch BRAND MEDICALLY NECESSARY. NEXIUM 40 0 Yes [id number] 40mg TAKE 1 [facility] nivers mg capsule 6-25 CAPSULE BY ity of 00:00: MOUTH [place] 00 DAILY WITH Medical BREAKFAST. Branch BRAND MEDICALLY NECESSARY. NEXIUM 40 2018-0 Yes [id number] 40mg TAKE 1 [facility] nivers mg capsule 6-25 CAPSULE BY ity of 00:00: MOUTH [place] 00 DAILY WITH Medical BREAKFAST. Branch BRAND MEDICALLY NECESSARY. NEXIUM 40 0 Yes [id number] 40mg TAKE 1 [facility] nivers mg capsule 6-25 CAPSULE BY ity of 00:00: MOUTH [place] 00 DAILY WITH Medical BREAKFAST. Branch BRAND MEDICALLY NECESSARY. NEXIUM 40 2018-0 Yes [id number] 40mg TAKE 1 [facility] nivers mg capsule 6-25 CAPSULE BY ity of 00:00: MOUTH [place] 00 DAILY WITH Medical BREAKFAST. Branch BRAND MEDICALLY NECESSARY. NEXIUM 40 2019-0 Yes [id number] 40mg TAKE 1 [facility] nivers mg capsule 6-25 CAPSULE BY ity of 00:00: MOUTH [place] 00 DAILY WITH Medical BREAKFAST. Branch BRAND MEDICALLY NECESSARY. NEXIUM 40 2018- Yes [id number] 40mg TAKE 1 [facility] nivers mg capsule 6-25 CAPSULE BY ity of 00:00: MOUTH [place] 00 DAILY WITH Medical BREAKFAST. Branch BRAND MEDICALLY NECESSARY. NEXIUM 40 Yes [id number] 40mg TAKE 1 [facility] nivers mg capsule 6-25 CAPSULE BY ity of 00:00: MOUTH [place] 00 DAILY WITH Medical BREAKFAST. Branch BRAND MEDICALLY NECESSARY. NEXIUM 40 Yes [id number] 40mg TAKE 1 [facility] nivers mg capsule 6-25 CAPSULE BY ity of 00:00: MOUTH [place] 00 DAILY WITH Medical BREAKFAST. Branch BRAND MEDICALLY NECESSARY. NEXIUM 40 Yes [id number] 40mg TAKE 1 [facility] nivers mg capsule 6-25 CAPSULE BY ity of 00:00: MOUTH [place] 00 DAILY WITH Medical BREAKFAST. Branch BRAND MEDICALLY NECESSARY. NEXIUM 40 Yes [id number] 40mg TAKE 1 [facility] nivers mg capsule 6-25 CAPSULE BY ity of 00:00: MOUTH [place] 00 DAILY WITH Medical BREAKFAST. Branch BRAND MEDICALLY NECESSARY. NEXIUM 40 Yes [id number] 40mg TAKE 1 [facility] nivers mg capsule 6-25 CAPSULE BY ity of 00:00: MOUTH [place] 00 DAILY WITH Medical BREAKFAST. Branch BRAND MEDICALLY NECESSARY. NEXIUM 40 Yes [id number] 40mg TAKE 1 [facility] nivers mg capsule 6-25 CAPSULE BY ity of 00:00: MOUTH [place] 00 DAILY WITH Medical BREAKFAST. Branch BRAND MEDICALLY NECESSARY. NEXIUM 40 2018-0 Yes [id number] 40mg TAKE 1 [facility] nivers mg capsule 6-25 CAPSULE BY ity of 00:00: MOUTH [place] 00 DAILY WITH Medical BREAKFAST. Branch BRAND MEDICALLY NECESSARY. NEXIUM 40 2018-0 Yes [id number] 40mg TAKE 1 [facility] nivers mg capsule 6-25 CAPSULE BY ity of 00:00: MOUTH [place] 00 DAILY WITH Medical BREAKFAST. Branch BRAND MEDICALLY NECESSARY. NEXIUM 40 2018-0 Yes [id number] 40mg TAKE 1 [facility] nivers mg capsule 6-25 CAPSULE BY ity of 00:00: MOUTH [place] 00 DAILY WITH Medical BREAKFAST. Branch BRAND MEDICALLY NECESSARY. NEXIUM 40 2018-0 Yes [id number] 40mg TAKE 1 [facility] nivers mg capsule 6-25 CAPSULE BY ity of 00:00: MOUTH [place] 00 DAILY WITH Medical BREAKFAST. Branch BRAND MEDICALLY NECESSARY. NEXIUM 40 2018-0 Yes [id number] 40mg TAKE 1 [facility] nivers mg capsule 6-25 CAPSULE BY ity of 00:00: MOUTH [place] 00 DAILY WITH Medical BREAKFAST. Branch BRAND MEDICALLY NECESSARY. NEXIUM 40 Yes [id number] 40mg TAKE 1 [facility] mg capsule 6-25 CAPSULE BY ity of 00:00: MOUTH [place] 00 DAILY WITH Medical BREAKFAST. Branch BRAND MEDICALLY NECESSARY. NEXIUM 40 Yes [id number] 40mg TAKE 1 [facility] nivers mg capsule 6-25 CAPSULE BY ity of 00:00: MOUTH [place] 00 DAILY WITH Medical BREAKFAST. Branch BRAND MEDICALLY NECESSARY. NEXIUM 40 Yes [id number] 40mg TAKE 1 [facility] nivers mg capsule 6-25 CAPSULE BY ity of 00:00: MOUTH [place] 00 DAILY WITH Medical BREAKFAST. Branch BRAND MEDICALLY NECESSARY. NEXIUM 40 Yes [id number] 40mg TAKE 1 [facility] nivers mg capsule 6-25 CAPSULE BY ity of 00:00: MOUTH [place] 00 DAILY WITH Medical BREAKFAST. Branch BRAND MEDICALLY NECESSARY. NEXIUM 40 0 Yes [id number] 40mg TAKE 1 [facility] nivers mg capsule 6-25 CAPSULE BY ity of 00:00: MOUTH [place] 00 DAILY WITH Medical BREAKFAST. Branch BRAND MEDICALLY NECESSARY. NEXIUM 40 0 Yes [id number] 40mg TAKE 1 [facility] nivers mg capsule 6-25 CAPSULE BY ity of 00:00: MOUTH [place] 00 DAILY WITH Medical BREAKFAST. Branch BRAND MEDICALLY NECESSARY. NEXIUM 40 2018-0 Yes [id number] 40mg TAKE 1 [facility] nivers mg capsule 6-25 CAPSULE BY ity of 00:00: MOUTH [place] 00 DAILY WITH Medical BREAKFAST. Branch BRAND MEDICALLY NECESSARY. NEXIUM 40 2018-0 Yes [id number] 40mg TAKE 1 [facility] nivers mg capsule 6-25 CAPSULE BY ity of 00:00: MOUTH [place] 00 DAILY WITH Medical BREAKFAST. Branch BRAND MEDICALLY NECESSARY. NEXIUM 40 2018-0 Yes [id number] 40mg TAKE 1 [facility] nivers mg capsule 6-25 CAPSULE BY ity of 00:00: MOUTH [place] 00 DAILY WITH Medical BREAKFAST. Branch BRAND MEDICALLY NECESSARY. NEXIUM 40 2018- Yes [id number] 40mg TAKE 1 [facility] nivers mg capsule 6-25 CAPSULE BY ity of 00:00: MOUTH [place] 00 DAILY WITH Medical BREAKFAST. Branch BRAND MEDICALLY NECESSARY. NEXIUM 40 2018- Yes [id number] 40mg TAKE 1 [facility] nivers mg capsule 6-25 CAPSULE BY ity of 00:00: MOUTH [place] 00 DAILY WITH Medical BREAKFAST. Branch BRAND MEDICALLY NECESSARY. NEXIUM 40 0 Yes [id number] 40mg TAKE 1 [facility] nivers mg capsule 6-25 CAPSULE BY ity of 00:00: MOUTH [place] 00 DAILY WITH Medical BREAKFAST. Branch BRAND MEDICALLY NECESSARY. NEXIUM 40 Yes [id number] 40mg TAKE 1 [facility] nivers mg capsule 6-25 CAPSULE BY ity of 00:00: MOUTH [place] 00 DAILY WITH Medical BREAKFAST. Branch BRAND MEDICALLY NECESSARY. NEXIUM 40 Yes [id number] 40mg TAKE 1 [facility] nivers mg capsule 6-25 CAPSULE BY ity of 00:00: MOUTH [place] 00 DAILY WITH Medical BREAKFAST. Branch BRAND MEDICALLY NECESSARY. NEXIUM 40 Yes [id number] 40mg TAKE 1 [facility] n[facility] mg capsule 6-25 CAPSULE BY ity of 00:00: MOUTH [place] 00 DAILY WITH Medical BREAKFAST. Branch BRAND MEDICALLY NECESSARY. NEXIUM 40 0 Yes [id number] 40mg TAKE 1 [facility] nivers mg capsule 6-25 CAPSULE BY ity of 00:00: MOUTH [place] 00 DAILY WITH Medical BREAKFAST. Branch BRAND MEDICALLY NECESSARY. NEXIUM 40 Yes [id number] 40mg TAKE 1 [facility]ivers mg capsule 6-25 CAPSULE BY ity of 00:00: MOUTH [place] 00 DAILY WITH Medical BREAKFAST. Branch BRAND MEDICALLY NECESSARY. NEXIUM 40 0 2020- No [id number] 40mg TAKE 1 [facility] mg capsule 6-25 07-28 CAPSULE BY it y of 00:00: 00:00 MOUTH [place] 00 :00 DAILY WITH Medical BREAKFAST. Branch BRAND MEDICALLY NECESSARY. TRIAMTERENE 2018- Yes [id number] TAKE 2 [facility] -HYDROCHLOR 5-30 TABLETS BY it y of OTHIAZID 00:00: MOUTH [place] 37.5-25 mg 00 DAILY. Medical tablet Branch TRIAMTERENE 2018- Yes [id number] TAKE 2 [facility] -HYDROCHLOR 5-30 TABLETS BY it y of OTHIAZID 00:00: MOUTH [place] 37.5-25 mg 00 DAILY. Medical tablet Branch TRIAMTERENE Yes [id number] TAKE 2 [facility] -HYDROCHLOR 5-30 TABLETS BY it y of OTHIAZID 00:00: MOUTH [place] 37.5-25 mg 00 DAILY. Medical tablet Branch TRIAMTERENE Yes [id number] TAKE 2 [facility] -HYDROCHLOR 5-30 TABLETS BY it y of OTHIAZID 00:00: MOUTH [place] 37.5-25 mg 00 DAILY. Medical tablet Branch TRIAMTERENE Yes [id number] TAKE 2 [facility] -HYDROCHLOR 5-30 TABLETS BY it y of OTHIAZID 00:00: MOUTH [place] 37.5-25 mg 00 DAILY. Medical tablet Branch TRIAMTERENE Yes [id number] TAKE 2 [facility] -HYDROCHLOR 5-30 TABLETS BY it y of OTHIAZID 00:00: MOUTH [place] 37.5-25 mg 00 DAILY. Medical tablet Branch TRIAMTERENE Yes [id number] TAKE 2 [facility] -HYDROCHLOR 5-30 TABLETS BY it y of OTHIAZID 00:00: MOUTH [place] 37.5-25 mg 00 DAILY. Medical tablet Branch TRIAMTERENE Yes [id number] TAKE 2 [facility] -HYDROCHLOR 5-30 TABLETS BY it y of OTHIAZID 00:00: MOUTH [place] 37.5-25 mg 00 DAILY. Medical tablet Branch TRIAMTERENE Yes [id number] TAKE 2 [facility] -HYDROCHLOR 5-30 TABLETS BY it y of OTHIAZID 00:00: MOUTH [place] 37.5-25 mg 00 DAILY. Medical tablet Branch TRIAMTERENE Yes [id number] TAKE 2 [facility] -HYDROCHLOR 5-30 TABLETS BY it y of OTHIAZID 00:00: MOUTH [place] 37.5-25 mg 00 DAILY. Medical tablet Branch TRIAMTERENE Yes [id number] TAKE 2 [facility] -HYDROCHLOR 5-30 TABLETS BY it y of OTHIAZID 00:00: MOUTH [place] 37.5-25 mg 00 DAILY. Medical tablet Branch TRIAMTERENE Yes [id number] TAKE 2 [facility] -HYDROCHLOR 5-30 TABLETS BY it y of OTHIAZID 00:00: MOUTH [place] 37.5-25 mg 00 DAILY. Medical tablet Branch TRIAMTERENE 2019-0 Yes [id number] TAKE 2 [facility] -HYDROCHLOR 5-30 TABLETS BY it y of OTHIAZID 00:00: MOUTH [place] 37.5-25 mg 00 DAILY. Medical tablet Branch LEVOTHYROXI 2019-0 Yes [id number] TAKE 1 [facility] [place] 25 mcg 5-13 TABLET BY ity o f tablet 00:00: MOUTH [place] 00 EVERY Medical MORNING. Branch LEVOTHYROXI 2019-0 Yes [id number] TAKE 1 [facility] [place] 25 mcg 5-13 TABLET BY ity o f tablet 00:00: MOUTH [place] 00 EVERY Medical MORNING. Branch LEVOTHYROXI 2019-0 Yes [id number] TAKE 1 [facility] [place] 25 mcg 5-13 TABLET BY ity o f tablet 00:00: MOUTH [place] 00 EVERY Medical MORNING. Branch LEVOTHYROXI 2019-0 Yes [id number] TAKE 1 [facility] [place] 25 mcg 5-13 TABLET BY ity o f tablet 00:00: MOUTH [place] 00 EVERY Medical MORNING. Branch LEVOTHYROXI 2019-0 Yes [id number] TAKE 1 [facility] [place] 25 mcg 5-13 TABLET BY ity o f tablet 00:00: MOUTH [place] 00 EVERY Medical MORNING. Branch LEVOTHYROXI 2019-0 Yes [id number] TAKE 1 [facility] [place] 25 mcg 5-13 TABLET BY ity o f tablet 00:00: MOUTH [place] 00 EVERY Medical MORNING. Branch LEVOTHYROXI 2019-0 Yes [id number] TAKE 1 [facility] [place] 25 mcg 5-13 TABLET BY ity o f tablet 00:00: MOUTH [place] 00 EVERY Medical MORNING. Branch LEVOTHYROXI 2019-0 Yes [id number] TAKE 1 [facility] [place] 25 mcg 5-13 TABLET BY ity o f tablet 00:00: MOUTH [place] 00 EVERY Medical MORNING. Branch LEVOTHYROXI 2019-0 Yes [id number] TAKE 1 [facility] [place] 25 mcg 5-13 TABLET BY ity o f tablet 00:00: MOUTH [place] 00 EVERY Medical MORNING. Branch LEVOTHYROXI 2019-0 Yes [id number] TAKE 1 [facility] [place] 25 mcg 5-13 TABLET BY ity o f tablet 00:00: MOUTH [place] 00 EVERY Medical MORNING. Branch LEVOTHYROXI 2019-0 Yes [id number] TAKE 1 [facility] [place] 25 mcg 5-13 TABLET BY ity o f tablet 00:00: MOUTH [place] 00 EVERY Medical MORNING. Branch LEVOTHYROXI 2019-0 Yes [id number] TAKE 1 [facility] [place] 25 mcg 5-13 TABLET BY ity o f tablet 00:00: MOUTH [place] 00 EVERY Medical MORNING. Branch LEVOTHYROXI 2019-0 Yes [id number] TAKE 1 [facility] [place] 25 mcg 5-13 TABLET BY ity o f tablet 00:00: MOUTH [place] 00 EVERY Medical MORNING. Branch LEVOTHYROXI 2019-0 Yes [id number] TAKE 1 [facility] [place] 25 mcg 5-13 TABLET BY ity o f tablet 00:00: MOUTH [place] 00 EVERY Medical MORNING. Branch LEVOTHYROXI 2019-0 Yes [id number] TAKE 1 [facility] [place] 25 mcg 5-13 TABLET BY ity o f tablet 00:00: MOUTH [place] 00 EVERY Medical MORNING. Branch LEVOTHYROXI 2019-0 Yes [id number] TAKE 1 [facility] [place] 25 mcg 5-13 TABLET BY ity o f tablet 00:00: MOUTH [place] 00 EVERY Medical MORNING. Branch LEVOTHYROXI 2019-0 Yes [id number] TAKE 1 [facility] [place] 25 mcg 5-13 TABLET BY ity o f tablet 00:00: MOUTH [place] 00 EVERY Medical MORNING. Branch LEVOTHYROXI 2019-0 Yes [id number] TAKE 1 [facility] 25 mcg 5-13 TABLET BY ity o f tablet 00:00: MOUTH [place] 00 EVERY Medical MORNING. Branch LEVOTHYROXI 2019-0 Yes [id number] TAKE 1 [facility] 25 mcg 5-13 TABLET BY ity o f tablet 00:00: MOUTH [place] 00 EVERY Medical MORNING. Branch LEVOTHYROXI 2019-0 Yes [id number] TAKE 1 [facility] [place] 25 mcg 5-13 TABLET BY ity o f tablet 00:00: MOUTH [place] 00 EVERY Medical MORNING. Branch LEVOTHYROXI 2019-0 Yes [id number] TAKE 1 [facility] 25 mcg 5-13 TABLET BY ity o f tablet 00:00: MOUTH [place] 00 EVERY Medical MORNING. Branch LEVOTHYROXI 2019-0 Yes [id number] TAKE 1 [facility] 25 mcg 5-13 TABLET BY ity o f tablet 00:00: MOUTH [place] 00 EVERY Medical MORNING. Branch LEVOTHYROXI 2019-0 Yes [id number] TAKE 1 [facility] [place] 25 mcg 5-13 TABLET BY ity o f tablet 00:00: MOUTH [place] 00 EVERY Medical MORNING. Branch LEVOTHYROXI 2019-0 Yes [id number] TAKE 1 [facility] [place] 25 mcg 5-13 TABLET BY ity o f tablet 00:00: MOUTH [place] 00 EVERY Medical MORNING. Branch LEVOTHYROXI 2019-0 Yes [id number] TAKE 1 [facility] [place] 25 mcg 5-13 TABLET BY ity o f tablet 00:00: MOUTH [place] 00 EVERY Medical MORNING. Branch LEVOTHYROXI 2019-0 Yes [id number] TAKE 1 [facility] [place] 25 mcg 5-13 TABLET BY ity o f tablet 00:00: MOUTH [place] 00 EVERY Medical MORNING. Branch LEVOTHYROXI 2019-0 Yes [id number] TAKE 1 [facility] [place] 25 mcg 5-13 TABLET BY ity o f tablet 00:00: MOUTH [place] 00 EVERY Medical MORNING. Branch LEVOTHYROXI 2019-0 Yes [id number] TAKE 1 [facility] [place] 25 mcg 5-13 TABLET BY ity o f tablet 00:00: MOUTH [place] 00 EVERY Medical MORNING. Branch LEVOTHYROXI 2019-0 2020- No [id number] TAKE 1 [facility] [place] 25 mcg 5-13 03-24 TABLET BY ity of tablet 00:00: 00:00 MOUTH [place] 00 :00 EVERY Medical MORNING. Branch traZODONE 2019-0 Yes [id number] 100mg Take 1 [facility] 100 mg 4-11 tablet by [facility] of tablet 00:00: mouth at [place] 00 bedtime. Medical For Branch insomnia. traZODONE 2019-0 Yes [id number] 100mg Take 1 [facility] 100 mg 4-11 tablet by [facility] of tablet 00:00: mouth at [place] 00 bedtime. Medical For Branch insomnia. traZODONE 2019-0 Yes [id number] 100mg Take 1 [facility] 100 mg 4-11 tablet by [facility]y of tablet 00:00: mouth at [place] [address] bedtime. Medical For Branch insomnia. traZODONE 2019-0 Yes [id number] 100mg Take 1 [facility] 100 mg 4-11 tablet by [facility]y of tablet 00:00: mouth at [place] 00 bedtime. Medical For Branch insomnia. traZODONE 2019-0 Yes [id number] 100mg Take 1 [facility] 100 mg 4-11 tablet by [facility] of tablet 00:00: mouth at [place] 00 bedtime. Medical For Branch insomnia. traZODONE 2019-0 Yes [id number] 100mg Take 1 [facility] 100 mg 4-11 tablet by [facility] of tablet 00:00: mouth at [place] 00 bedtime. Medical For Branch insomnia. traZODONE 2019-0 Yes [id number] 100mg Take 1 [facility] 100 mg 4-11 tablet by [facility] of tablet 00:00: mouth at [place] 00 bedtime. Medical For Branch insomnia. traZODONE 2019-0 Yes [id number] 100mg Take 1 [facility] 100 mg 4-11 tablet by [facility] of tablet 00:00: mouth at [place] 00 bedtime. Medical For Branch insomnia. traZODONE 2019-0 Yes [id number] 100mg Take 1 [facility] 100 mg 4-11 tablet by [facility] of tablet 00:00: mouth at [place] 00 bedtime. Medical For Branch insomnia. traZODONE 2019-0 Yes [id number] 100mg Take 1 [facility] 100 mg 4-11 tablet by [facility] of tablet 00:00: mouth at [place] 00 bedtime. Medical For Branch insomnia. traZODONE 2019-0 Yes [id number] 100mg Take 1 [facility] 100 mg 4-11 tablet by [facility] of tablet 00:00: mouth at [place] 00 bedtime. Medical For Branch insomnia. traZODONE 2019-0 Yes [id number] 100mg Take 1 [facility] 100 mg 4-11 tablet by [facility] of tablet 00:00: mouth at [place] 00 bedtime. Medical For Branch insomnia. traZODONE 2019-0 Yes [id number] 100mg Take 1 [facility] 100 mg 4-11 tablet by [facility] of tablet 00:00: mouth at [place] 00 bedtime. [facility] insomnia. metformin 2018-0 Yes [id number] 500mg Take 1 [facility] ER 500 mg 4-09 tablet by it[facility] o f 24 hr 00:00: mouth [place] tablet 00 daily with Medical breakfast. Branch metformin 2018-0 Yes [id number] 500mg Take 1 [facility] ER 500 mg 4-09 tablet by ity o f 24 hr 00:00: mouth [place] tablet 00 daily with Medical breakfast. Branch metformin 2018-0 Yes [id number] 500mg Take 1 [facility] ER 500 mg 4-09 tablet by ity o f 24 hr 00:00: mouth [place] tablet 00 daily with Medical breakfast. Branch metformin 2019-0 Yes [id number] 500mg Take 1 [facility] ER 500 mg 4-09 tablet by ity o f 24 hr 00:00: mouth [place] tablet 00 daily with Medical breakfast. Branch metformin 2018-0 Yes [id number] 500mg Take 1 [facility] ER 500 mg 4-09 tablet by ity o f 24 hr 00:00: mouth [place] tablet 00 daily with Medical breakfast. Branch metformin 2019-0 Yes [id number] 500mg Take 1 [facility] ER 500 mg 4-09 tablet by ity o f 24 hr 00:00: mouth [place] tablet 00 daily with Medical breakfast. Branch metformin 2019-0 Yes [id number] 500mg Take 1 [facility] ER 500 mg 4-09 tablet by ity o f 24 hr 00:00: mouth [place] tablet 00 daily with Medical breakfast. Branch metformin 2019-0 Yes [id number] 500mg Take 1 [facility] ER 500 mg 4-09 tablet by ity o f 24 hr 00:00: mouth [place] tablet 00 daily with Medical breakfast. Branch metformin 2019-0 Yes [id number] 500mg Take 1 [facility] ER 500 mg 4-09 tablet by ity o f 24 hr 00:00: mouth [place] tablet 00 daily with Medical breakfast. Branch metformin 2019-0 Yes [id number] 500mg Take 1 [facility] ER 500 mg 4-09 tablet by ity o f 24 hr 00:00: mouth [place] tablet 00 daily with Medical breakfast. Branch metformin 2019-0 Yes [id number] 500mg Take 1 [facility] ER 500 mg 4-09 tablet by ity o f 24 hr 00:00: mouth [place] tablet 00 daily with Medical breakfast. Branch metformin 2019-0 Yes [id number] 500mg Take 1 [facility] ER 500 mg 4-09 tablet by ity o f 24 hr 00:00: mouth [place] tablet 00 daily with Medical breakfast. Branch metformin 2019-0 Yes [id number] 500mg Take 1 [facility] ER 500 mg 4-09 tablet by ity o f 24 hr 00:00: mouth [place] tablet 00 daily with Medical breakfast. Branch ciclopirox 2019-0 Yes [id number] Apply to [facility] 8 % 3-28 area(s) at ity of solution 00:00: bedtime. [place] 00 Apply to Medical Nails. Branch ciclopirox 2019-0 Yes [id number] Apply to [facility] 8 % 3-28 area(s) at ity of solution 00:00: bedtime. [place] 00 Apply to Medical Nails. Branch ciclopirox 2019-0 Yes [id number] Apply to [facility] 8 % 3-28 area(s) at ity of solution 00:00: bedtime. [place] 00 Apply to Medical Nails. Branch ciclopirox 2019-0 Yes [id number] Apply to [facility] 8 % 3-28 area(s) at ity of solution 00:00: bedtime. [place] 00 Apply to Medical Nails. Branch ciclopirox 2019-0 Yes [id number] Apply to [facility] 8 % 3-28 area(s) at ity of solution 00:00: bedtime. [place] 00 Apply to Medical Nails. Branch ciclopirox 2019-0 Yes [id number] Apply to [facility] 8 % 3-28 area(s) at ity of solution 00:00: bedtime. [place] 00 Apply to Medical Nails. Branch ciclopirox 2019-0 Yes [id number] Apply to [facility] 8 % 3-28 area(s) at ity of solution 00:00: bedtime. [place] 00 Apply to Medical Nails. Branch ciclopirox 2019-0 Yes [id number] Apply to [facility] 8 % 3-28 area(s) at ity of solution 00:00: bedtime. [place] 00 Apply to Medical Nails. Branch ciclopirox 2019-0 Yes [id number] Apply to [facility] 8 % 3-28 area(s) at ity of solution 00:00: bedtime. [place] 00 Apply to Medical Nails. Branch ciclopirox 2019-0 Yes [id number] Apply to [facility] 8 % 3-28 area(s) at ity of solution 00:00: bedtime. [place] 00 Apply to Medical Nails. Branch ciclopirox 2019-0 Yes [id number] Apply to [facility] 8 % 3-28 area(s) at ity of solution 00:00: bedtime. [place] 00 Apply to Medical Nails. Branch ciclopirox 2019-0 Yes [id number] Apply to [facility] 8 % 3-28 area(s) at ity of solution 00:00: bedtime. [place] 00 Apply to Medical Nails. Branch ciclopirox 2019-0 Yes [id number] Apply to [facility] 8 % 3-28 area(s) at ity of solution 00:00: bedtime. [place] 00 Apply to Medical Nails. Branch ciclopirox 2019-0 Yes [id number] Apply to [facility] 8 % 3-28 area(s) at ity of solution 00:00: bedtime. [place] 00 Apply to Medical Nails. Branch ciclopirox 2019-0 Yes [id number] Apply to [facility] 8 % 3-28 area(s) at ity of solution 00:00: bedtime. [place] 00 Apply to Medical Nails. Branch ciclopirox 2019-0 Yes [id number] Apply to [facility] 8 % 3-28 area(s) at ity of solution 00:00: bedtime. [place] 00 Apply to Medical Nails. Branch ciclopirox 2019-0 Yes [id number] Apply to [facility] 8 % 3-28 area(s) at ity of solution 00:00: bedtime. [place] 00 Apply to Medical Nails. Branch ciclopirox 2019-0 Yes [id number] Apply to [facility] 8 % 3-28 area(s) at ity of solution 00:00: bedtime. [place] 00 Apply to Medical Nails. Branch ciclopirox 2019-0 Yes [id number] Apply to [facility] 8 % 3-28 area(s) at ity of solution 00:00: bedtime. [place] 00 Apply to Medical Nails. Branch ciclopirox 2019-0 Yes [id number] Apply to [facility] 8 % 3-28 area(s) at ity of solution 00:00: bedtime. [place] 00 Apply to Medical Nails. Branch ciclopirox 2019-0 Yes [id number] Apply to [facility] 8 % 3-28 area(s) at ity of solution 00:00: bedtime. [place] 00 Apply to Medical Nails. Branch ciclopirox 2019-0 Yes [id number] Apply to [facility] 8 % 3-28 area(s) at ity of solution 00:00: bedtime. [place] 00 Apply to Medical Nails. Branch ciclopirox 2019-0 Yes [id number] Apply to [facility] 8 % 3-28 area(s) at ity of solution 00:00: bedtime. [place] 00 Apply to Medical Nails. Branch ciclopirox 2019-0 Yes [id number] Apply to [facility] 8 % 3-28 area(s) at ity of solution 00:00: bedtime. [place] 00 Apply to Medical Nails. Branch ciclopirox 2019-0 Yes [id number] Apply to [facility] 8 % 3-28 area(s) at ity of solution 00:00: bedtime. [place] 00 Apply to Medical Nails. Branch ciclopirox 2019-0 Yes [id number] Apply to [facility] 8 % 3-28 area(s) at ity of solution 00:00: bedtime. [place] 00 Apply to Medical Nails. Branch ciclopirox 2019-0 Yes [id number] Apply to [facility] 8 % 3-28 area(s) at ity of solution 00:00: bedtime. [place] 00 Apply to Medical Nails. Branch ciclopirox 2019-0 Yes [id number] Apply to [facility] 8 % 3-28 area(s) at ity of solution 00:00: bedtime. [place] 00 Apply to Medical Nails. Branch ciclopirox 2019-0 Yes [id number] Apply to [facility] 8 % 3-28 area(s) at ity of solution 00:00: bedtime. [place] 00 Apply to Medical Nails. Branch ciclopirox 2019-0 Yes [id number] Apply to [facility] 8 % 3-28 area(s) at ity of solution 00:00: bedtime. [place] 00 Apply to Medical Nails. Branch ciclopirox 2019-0 Yes [id number] Apply to [facility] 8 % 3-28 area(s) at ity of solution 00:00: bedtime. [place] 00 Apply to Medical Nails. Branch ciclopirox 2019-0 Yes [id number] Apply to [facility] 8 % 3-28 area(s) at ity of solution 00:00: bedtime. [place] 00 Apply to Medical Nails. Branch ciclopirox 2019-0 Yes [id number] Apply to [facility] 8 % 3-28 area(s) at ity of solution 00:00: bedtime. [place] 00 Apply to Medical Nails. Branch ciclopirox 2019-0 Yes [id number] Apply to [facility] 8 % 3-28 area(s) at ity of solution 00:00: bedtime. [place] 00 Apply to Medical Nails. Branch ciclopirox 2019-0 Yes [id number] Apply to [facility] 8 % 3-28 area(s) at ity of solution 00:00: bedtime. [place] 00 Apply to Medical Nails. Branch ciclopirox 2019-0 Yes [id number] Apply to [facility] 8 % 3-28 area(s) at ity of solution 00:00: bedtime. [place] 00 Apply to Medical Nails. Branch ciclopirox 2019-0 Yes [id number] Apply to [facility] 8 % 3-28 area(s) at ity of solution 00:00: bedtime. [place] 00 Apply to Medical Nails. Branch ciclopirox 2019-0 Yes [id number] Apply to [facility] 8 % 3-28 area(s) at ity of solution 00:00: bedtime. [place] 00 Apply to Medical Nails. Branch ciclopirox 2019-0 Yes [id number] Apply to [facility] 8 % 3-28 area(s) at ity of solution 00:00: bedtime. [place] 00 Apply to Medical Nails. Branch ciclopirox 2019-0 Yes [id number] Apply to [facility] 8 % 3-28 area(s) at ity of solution 00:00: bedtime. [place] 00 Apply to Medical Nails. Branch ciclopirox 2019-0 Yes [id number] Apply to [facility] 8 % 3-28 area(s) at ity of solution 00:00: bedtime. [place] 00 Apply to Medical Nails. Branch ciclopirox 2019-0 Yes [id number] Apply to [facility] 8 % 3-28 area(s) at ity of solution 00:00: bedtime. [place] 00 Apply to Medical Nails. Branch ciclopirox 2019-0 Yes [id number] Apply to [facility] 8 % 3-28 area(s) at ity of solution 00:00: bedtime. [place] 00 Apply to Medical Nails. Branch ciclopirox 2019-0 Yes [id number] Apply to [facility] 8 % 3-28 area(s) at ity of solution 00:00: bedtime. [place] 00 Apply to Medical Nails. Branch ciclopirox 2019-0 Yes [id number] Apply to [facility] 8 % 3-28 area(s) at ity of solution 00:00: bedtime. [place] 00 Apply to Medical Nails. Branch ciclopirox 2019-0 Yes [id number] Apply to [facility] 8 % 3-28 area(s) at ity of solution 00:00: bedtime. [place] 00 Apply to Medical Nails. Branch ciclopirox 2019-0 Yes [id number] Apply to [facility] 8 % 3-28 area(s) at ity of solution 00:00: bedtime. [place] 00 Apply to Medical Nails. Branch ciclopirox 2019-0 Yes [id number] Apply to [facility] 8 % 3-28 area(s) at ity of solution 00:00: bedtime. [place] 00 Apply to Medical Nails. Branch ciclopirox 2019-0 Yes [id number] Apply to [facility] 8 % 3-28 area(s) at ity of solution 00:00: bedtime. [place] 00 Apply to Medical Nails. Branch ciclopirox 2019-0 Yes [id number] Apply to [facility] 8 % 3-28 area(s) at ity of solution 00:00: bedtime. [place] 00 Apply to Medical Nails. Branch ciclopirox 2019-0 Yes [id number] Apply to [facility] 8 % 3-28 area(s) at ity of solution 00:00: bedtime. [place] 00 Apply to Medical Nails. Branch ciclopirox 2019-0 Yes [id number] Apply to [facility] 8 % 3-28 area(s) at ity of solution 00:00: bedtime. [place] 00 Apply to Medical Nails. Branch ciclopirox 2019-0 Yes [id number] Apply to [facility] 8 % 3-28 area(s) at ity of solution 00:00: bedtime. [place] 00 Apply to Medical Nails. Branch ciclopirox 2019-0 Yes [id number] Apply to [facility] 8 % 3-28 area(s) at ity of solution 00:00: bedtime. [place] 00 Apply to Medical Nails. Branch ciclopirox 2019-0 Yes [id number] Apply to [facility] 8 % 3-28 area(s) at ity of solution 00:00: bedtime. [place] 00 Apply to Medical Nails. Branch ciclopirox 2019-0 Yes [id number] Apply to [facility] 8 % 3-28 area(s) at ity of solution 00:00: bedtime. [place] 00 Apply to Medical Nails. Branch ciclopirox 2019-0 Yes [id number] Apply to [facility] 8 % 3-28 area(s) at ity of solution 00:00: bedtime. [place] 00 Apply to Medical Nails. Branch ciclopirox 2019-0 Yes [id number] Apply to [facility] 8 % 3-28 area(s) at ity of solution 00:00: bedtime. [place] 00 Apply to Medical Nails. Branch ciclopirox 2019-0 Yes [id number] Apply to [facility] 8 % 3-28 area(s) at ity of solution 00:00: bedtime. [place] 00 Apply to Medical Nails. Branch ciclopirox 2019-0 Yes [id number] Apply to [facility] 8 % 3-28 area(s) at ity of solution 00:00: bedtime. [place] 00 Apply to Medical Nails. Branch ciclopirox 2019-0 Yes [id number] Apply to [facility] 8 % 3-28 area(s) at ity of solution 00:00: bedtime. [place] 00 Apply to Medical Nails. Branch ciclopirox 2019-0 Yes [id number] Apply to [facility] 8 % 3-28 area(s) at ity of solution 00:00: bedtime. [place] 00 Apply to Medical Nails. Branch ciclopirox 2019-0 Yes [id number] Apply to [facility] 8 % 3-28 area(s) at ity of solution 00:00: bedtime. [place] 00 Apply to Medical Nails. Branch ciclopirox 2019-0 Yes [id number] Apply to [facility] 8 % 3-28 area(s) at ity of solution 00:00: bedtime. [place] 00 Apply to Medical Nails. Branch ciclopirox 2019-0 Yes [id number] Apply to [facility] 8 % 3-28 area(s) at ity of solution 00:00: bedtime. [place] 00 Apply to Medical Nails. Branch ciclopirox 2019-0 Yes [id number] Apply to [facility] 8 % 3-28 area(s) at ity of solution 00:00: bedtime. [place] 00 Apply to Medical Nails. Branch ciclopirox 2019-0 Yes [id number] Apply to [facility] 8 % 3-28 area(s) at ity of solution 00:00: bedtime. [place] 00 Apply to Medical Nails. Branch ciclopirox 2019-0 Yes [id number] Apply to [facility] 8 % 3-28 area(s) at ity of solution 00:00: bedtime. [place] 00 Apply to Medical Nails. Branch ciclopirox 2019-0 Yes [id number] Apply to [facility] 8 % 3-28 area(s) at ity of solution 00:00: bedtime. [place] 00 Apply to Medical Nails. Branch ciclopirox 2019-0 Yes [id number] Apply to [facility] 8 % 3-28 area(s) at ity of solution 00:00: bedtime. [place] 00 Apply to Medical Nails. Branch ciclopirox 2019-0 Yes [id number] Apply to [facility] 8 % 3-28 area(s) at ity of solution 00:00: bedtime. [place] 00 Apply to Medical Nails. Branch ciclopirox 2019-0 Yes [id number] Apply to [facility] 8 % 3-28 area(s) at ity of solution 00:00: bedtime. [place] 00 Apply to Medical Nails. Branch ciclopirox 2019-0 Yes [id number] Apply to [facility] 8 % 3-28 area(s) at ity of solution 00:00: bedtime. [place] 00 Apply to Medical Nails. Branch ciclopirox 2019-0 Yes [id number] Apply to [facility] 8 % 3-28 area(s) at ity of solution 00:00: bedtime. [place] 00 Apply to Medical Nails. Branch ciclopirox 2019-0 Yes [id number] Apply to [facility] 8 % 3-28 area(s) at ity of solution 00:00: bedtime. [place] 00 Apply to Medical Nails. Branch ciclopirox 2019-0 Yes [id number] Apply to [facility] 8 % 3-28 area(s) at ity of solution 00:00: bedtime. [place] 00 Apply to Medical Nails. Branch ciclopirox 2019-0 Yes [id number] Apply to [facility] 8 % 3-28 area(s) at ity of solution 00:00: bedtime. [place] 00 Apply to Medical Nails. Branch ciclopirox 2019-0 Yes [id number] Apply to [facility] 8 % 3-28 area(s) at ity of solution 00:00: bedtime. [place] 00 Apply to Medical Nails. Branch ciclopirox 2019-0 Yes [id number] Apply to [facility] 8 % 3-28 area(s) at ity of solution 00:00: bedtime. [place] 00 Apply to Medical Nails. Branch ciclopirox 2019-0 Yes [id number] Apply to [facility] 8 % 3-28 area(s) at ity of solution 00:00: bedtime. [place] 00 Apply to Medical Nails. Branch ciclopirox 2019-0 Yes [id number] Apply to [facility] 8 % 3-28 area(s) at ity of solution 00:00: bedtime. [place] 00 Apply to Medical Nails. Branch ciclopirox 2019-0 Yes [id number] Apply to [facility] 8 % 3-28 area(s) at ity of solution 00:00: bedtime. [place] 00 Apply to Medical Nails. Branch ciclopirox 2019-0 Yes [id number] Apply to [facility] 8 % 3-28 area(s) at ity of solution 00:00: bedtime. [place] 00 Apply to Medical Nails. Branch ciclopirox 2019-0 Yes [id number] Apply to [facility] 8 % 3-28 area(s) at ity of solution 00:00: bedtime. [place] 00 Apply to Medical Nails. Branch ciclopirox 2019-0 Yes [id number] Apply to [facility] 8 % 3-28 area(s) at ity of solution 00:00: bedtime. [place] 00 Apply to Medical Nails. Branch ciclopirox 2019-0 Yes [id number] Apply to [facility] 8 % 3-28 area(s) at ity of solution 00:00: bedtime. [place] 00 Apply to Medical Nails. Branch ciclopirox 2019-0 Yes [id number] Apply to [facility] 8 % 3-28 area(s) at ity of solution 00:00: bedtime. [place] 00 Apply to Medical Nails. Branch ciclopirox 2019-0 Yes [id number] Apply to [facility] 8 % 3-28 area(s) at ity of solution 00:00: bedtime. [place] 00 Apply to Medical Nails. Branch ciclopirox 2019-0 Yes [id number] Apply to [facility] 8 % 3-28 area(s) at ity of solution 00:00: bedtime. [place] 00 Apply to Medical Nails. Branch ciclopirox 2019-0 Yes [id number] Apply to [facility] 8 % 3-28 area(s) at ity of solution 00:00: bedtime. [place] 00 Apply to Medical Nails. Branch ciclopirox 2019-0 Yes [id number] Apply to [facility] 8 % 3-28 area(s) at ity of solution 00:00: bedtime. [place] 00 Apply to Medical Nails. Branch ciclopirox 2019-0 Yes [id number] Apply to [facility] 8 % 3-28 area(s) at ity of solution 00:00: bedtime. [place] 00 Apply to Medical Nails. Branch ciclopirox 2019-0 Yes [id number] Apply to [facility] 8 % 3-28 area(s) at ity of solution 00:00: bedtime. [place] 00 Apply to Medical Nails. Branch ciclopirox 2019-0 Yes [id number] Apply to [facility] 8 % 3-28 area(s) at ity of solution 00:00: bedtime. [place] 00 Apply to Medical Nails. Branch ciclopirox 2019-0 Yes [id number] Apply to [facility] 8 % 3-28 area(s) at ity of solution 00:00: bedtime. [place] 00 Apply to Medical Nails. Branch ciclopirox 2019-0 Yes [id number] Apply to [facility] 8 % 3-28 area(s) at ity of solution 00:00: bedtime. [place] 00 Apply to Medical Nails. Branch ciclopirox 2019-0 Yes [id number] Apply to [facility] 8 % 3-28 area(s) at ity of solution 00:00: bedtime. [place] 00 Apply to Medical Nails. Branch ciclopirox 2019-0 Yes [id number] Apply to [facility] 8 % 3-28 area(s) at ity of solution 00:00: bedtime. [place] 00 Apply to Medical Nails. Branch ciclopirox 2019-0 Yes [id number] Apply to [facility] 8 % 3-28 area(s) at ity of solution 00:00: bedtime. [place] 00 Apply to Medical Nails. Branch ciclopirox 2019-0 Yes [id number] Apply to [facility] 8 % 3-28 area(s) at ity of solution 00:00: bedtime. [place] 00 Apply to Medical Nails. Branch ciclopirox 2019-0 Yes [id number] Apply to [facility] 8 % 3-28 area(s) at ity of solution 00:00: bedtime. [place] 00 Apply to Medical Nails. Branch ciclopirox 2019-0 Yes [id number] Apply to [facility] 8 % 3-28 area(s) at ity of solution 00:00: bedtime. [place] 00 Apply to Medical Nails. Branch ciclopirox 2019-0 Yes [id number] Apply to [facility] 8 % 3-28 area(s) at ity of solution 00:00: bedtime. [place] 00 Apply to Medical Nails. Branch ciclopirox 2019-0 Yes [id number] Apply to [facility] 8 % 3-28 area(s) at ity of solution 00:00: bedtime. [place] 00 Apply to Medical Nails. Branch ciclopirox 2019-0 Yes [id number] Apply to [facility] 8 % 3-28 area(s) at ity of solution 00:00: bedtime. [place] 00 Apply to Medical Nails. Branch ciclopirox 2019-0 Yes [id number] Apply to [facility] 8 % 3-28 area(s) at ity of solution 00:00: bedtime. [place] 00 Apply to Medical Nails. Branch ciclopirox 2019-0 Yes [id number] Apply to [facility] 8 % 3-28 area(s) at ity of solution 00:00: bedtime. [place] 00 Apply to Medical Nails. Branch ciclopirox 2019-0 Yes [id number] Apply to [facility] 8 % 3-28 area(s) at ity of solution 00:00: bedtime. [place] 00 Apply to Medical Nails. Branch ciclopirox 2019-0 Yes [id number] Apply to [facility] 8 % 3-28 area(s) at ity of solution 00:00: bedtime. [place] 00 Apply to Medical Nails. Branch ciclopirox 2019-0 Yes [id number] Apply to [facility] 8 % 3-28 area(s) at ity of solution 00:00: bedtime. [place] 00 Apply to Medical Nails. Branch ciclopirox 2019-0 Yes [id number] Apply to [facility] 8 % 3-28 area(s) at ity of solution 00:00: bedtime. [place] 00 Apply to Medical Nails. Branch ciclopirox 2019-0 Yes [id number] Apply to [facility] 8 % 3-28 area(s) at ity of solution 00:00: bedtime. [place] 00 Apply to Medical Nails. Branch ciclopirox 2019-0 Yes [id number] Apply to [facility] 8 % 3-28 area(s) at ity of solution 00:00: bedtime. [place] 00 Apply to Medical Nails. Branch ciclopirox 2019-0 Yes [id number] Apply to [facility] 8 % 3-28 area(s) at ity of solution 00:00: bedtime. [place] 00 Apply to Medical Nails. Branch ciclopirox 2019-0 Yes [id number] Apply to [facility] 8 % 3-28 area(s) at ity of solution 00:00: bedtime. [place] 00 Apply to Medical Nails. Branch ciclopirox 2019-0 Yes [id number] Apply to [facility] 8 % 3-28 area(s) at ity of solution 00:00: bedtime. [place] 00 Apply to Medical Nails. Branch ciclopirox 2019-0 Yes [id number] Apply to [facility] 8 % 3-28 area(s) at ity of solution 00:00: bedtime. [place] 00 Apply to Medical Nails. Branch ciclopirox 2019-0 Yes [id number] Apply to [facility] 8 % 3-28 area(s) at ity of solution 00:00: bedtime. [place] 00 Apply to Medical Nails. Branch ciclopirox 2019-0 Yes [id number] Apply to [facility] 8 % 3-28 area(s) at ity of solution 00:00: bedtime. [place] 00 Apply to Medical Nails. Branch ciclopirox 2019-0 Yes [id number] Apply to [facility] 8 % 3-28 area(s) at ity of solution 00:00: bedtime. [place] 00 Apply to Medical Nails. Branch ciclopirox 2019-0 Yes [id number] Apply to [facility] 8 % 3-28 area(s) at ity of solution 00:00: bedtime. [place] 00 Apply to Medical Nails. Branch ciclopirox 2019-0 Yes [id number] Apply to [facility] 8 % 3-28 area(s) at ity of solution 00:00: bedtime. [place] 00 Apply to Medical Nails. Branch ciclopirox 2019-0 Yes [id number] Apply to [facility] 8 % 3-28 area(s) at ity of solution 00:00: bedtime. [place] 00 Apply to Medical Nails. Branch ciclopirox 2019-0 Yes [id number] Apply to [facility] 8 % 3-28 area(s) at ity of solution 00:00: bedtime. [place] 00 Apply to Medical Nails. Branch ciclopirox 2019-0 Yes [id number] Apply to [facility] 8 % 3-28 area(s) at ity of solution 00:00: bedtime. [place] 00 Apply to Medical Nails. Branch ciclopirox 2019-0 Yes [id number] Apply to [facility] 8 % 3-28 area(s) at ity of solution 00:00: bedtime. [place] 00 Apply to Medical Nails. Branch ciclopirox 2019-0 Yes [id number] Apply to [facility] 8 % 3-28 area(s) at ity of solution 00:00: bedtime. [place] 00 Apply to Medical Nails. Branch ciclopirox 2019-0 Yes [id number] Apply to [facility] 8 % 3-28 area(s) at ity of solution 00:00: bedtime. [place] 00 Apply to Medical Nails. Branch ciclopirox 2019-0 Yes [id number] Apply to [facility] 8 % 3-28 area(s) at ity of solution 00:00: bedtime. [place] 00 Apply to Medical Nails. Branch ciclopirox 2019-0 Yes [id number] Apply to [facility] 8 % 3-28 area(s) at ity of solution 00:00: bedtime. [place] 00 Apply to Medical Nails. Branch ciclopirox 2019-0 Yes [id number] Apply to [facility] 8 % 3-28 area(s) at ity of solution 00:00: bedtime. [place] 00 Apply to Medical Nails. Branch ciclopirox 2019-0 Yes [id number] Apply to [facility] 8 % 3-28 area(s) at ity of solution 00:00: bedtime. [place] 00 Apply to Medical Nails. Branch ciclopirox 2019-0 Yes [id number] Apply to [facility] 8 % 3-28 area(s) at ity of solution 00:00: bedtime. [place] 00 Apply to Medical Nails. Branch ciclopirox 2019-0 Yes [id number] Apply to [facility] 8 % 3-28 area(s) at ity of solution 00:00: bedtime. [place] 00 Apply to Medical Nails. Branch ciclopirox 2019-0 Yes [id number] Apply to [facility] 8 % 3-28 area(s) at ity of solution 00:00: bedtime. [place] 00 Apply to Medical Nails. Branch ciclopirox 2019-0 Yes [id number] Apply to [facility] 8 % 3-28 area(s) at ity of solution 00:00: bedtime. [place] 00 Apply to Medical Nails. Branch ciclopirox 2019-0 Yes [id number] Apply to [facility] 8 % 3-28 area(s) at ity of solution 00:00: bedtime. [place] 00 Apply to Medical Nails. Branch ciclopirox Yes [id number] Apply to [facility] 8 % 3-28 area(s) at ity of solution 00:00: bedtime. [place] 00 Apply to Medical Nails. Branch ciclopirox Yes [id number] Apply to [facility] 8 % 3-28 area(s) at ity of solution 00:00: bedtime. 00 Apply to Medical Nails. Branch ciclopirox Yes [id number] Apply to [facility] 8 % 3-28 area(s) at ity of solution 00:00: bedtime. Apply to Medical Nails. Branch ciclopirox Yes [id number] Apply to [facility] 8 % 3-28 area(s) at ity of solution 00:00: bedtime. Apply to Medical Nails. Branch ciclopirox Yes [id number] Apply to [facility] 8 % 3-28 area(s) at ity of solution 00:00: bedtime. Apply to Medical Nails. Branch alcaftadine Yes Place in [facility] (LASTACAFT) 1 each eye. ity of 0.25 % Drop 20:36: [place] [address] Medical Branch CY[address] Yes Place in U nivers E (RESTASIS - each eye. ity of OPHTHALMIC) 20:36: [place] [address] Medical Branch ASCORBATE Yes Take by [facility] ers CALCIUM 10-09 mouth. ity of (VITAMIN C 20:36: [place] ORAL) Medical Branch DOCOSAHEXAN Yes Take by [facility] [place] OIC 10-09 mouth. ity of ACID/EPA 20:36: [place] (FISH OIL Medical ORAL) Branch vitamin E Yes 1000U Take 1,000 U nivers 1,000 unit -23 Units by ity o f capsule 20:36: mouth [place] [address] daily. Medical Branch Magnesium Yes Take by [facility] ers 250 mg Tab 10-09 mouth. ity of 20:36: [place] [address] Medical Branch vitamin B-6 Yes 100mg Take 100 U nivers (VITAMIN 1-23 mg by ity of B-6) 100 mg 20:36: mouth [place] tablet daily. Medical Branch CALCIUM Yes Take by [facility] s CARBONATE/V 10-09 mouth. ity of ITAMIN D3 20:36: [place] (VITAMIN 33 Medical D-3 ORAL) Branch alcaftadine Yes Place in U nivers (LASTACAFT) 1-23 each eye. ity of 0.25 % Drop 20:36: [place] [address] Medical Branch CYCLOS[address]IN Yes Place in U nivers E (RESTASIS 1-23 each eye. ity of OPHTHALMIC) 20:36: [place] [address] Medical Branch ASCORBATE Yes Take by [facility] ers CALCIUM 1- mouth. ity of (VITAMIN C 20:36: [place] ORAL) Medical Branch DOCOSAHEXAN Yes Take by [facility] [place] OIC 10-09 mouth. ity of ACID/EPA 20:36: [place] (FISH OIL 33 Medical ORAL) Branch vitamin E Yes 1000U Take 1,000 U nivers 1,000 unit 1-23 Units by ity o f capsule 20:36: mouth [place] 33 daily. Medical Branch Magnesium Yes Take by [facility] ers 250 mg Tab 10-09 mouth. ity of 20:36: [address] Branch vitamin B-6 Yes 100mg Take 100 U nivers (VITAMIN 1-23 mg by ity of B-6) 100 mg 20:36: mouth [place] tablet 33 daily. Medical Branch CALCIUM Yes Take by [facility] s CARBONATE/V 10-09 mouth. ity of ITAMIN D3 20:36: [place] (VITAMIN 33 Medical D-3 ORAL) Branch alcaftadine Yes Place in U nivers (LASTACAFT) 1-23 each eye. ity of 0.25 % Drop 20:36: [place] [address] Medical Branch CYCL[address] Yes Place in U nivers E (RESTASIS 1-23 each eye. ity of OPHTHALMIC) 20:36: [place] [address] Medical Branch ASCORBATE Yes Take by Univ ers CALCIUM 1-23 mouth. ity of (VITAMIN C 20:36: [place] ORAL) Medical Branch DOCOSAHEXAN Yes Take by [facility] - mouth. ity of ACID/EPA 20:36: [place] (FISH OIL 33 Medical ORAL) Branch vitamin E Yes 1000U Take 1,000 U nivers 1,000 unit 1-23 Units by ity o f capsule 20:36: mouth [place] 33 daily. Medical Branch Magnesium 20190 Yes Take by Univ ers 250 mg Tab 1-23 mouth. ity of 20:36: [place] [address] Medical Branch vitamin B-6 Yes 100mg Take 100 U nivers (VITAMIN 1-23 mg by ity of B-6) 100 mg 20:36: mouth [place] tablet 33 daily. Medical Branch CALCIUM Yes Take by [facility] s CARBONATE/V 1-23 mouth. ity of ITAMIN D3 20:36: [place] (VITAMIN 33 Medical D-3 ORAL) Branch alcaftadine Yes Place in U nivers (LASTACAFT) 1-23 each eye. ity of 0.25 % Drop 20:36: [place] [address] Medical Branch CYCLOSPORIN Yes Place in [facility] E (RESTASIS 1- each eye. ity of OPHTHALMIC) 20:36: [place] [address] Medical Branch ASCORBATE Yes Take by Univ ers CALCIUM 1-23 mouth. ity of (VITAMIN C 20:36: [place] ORAL) Medical Branch DOCOSAHEXAN Yes Take by [facility] - mouth. ity of ACID/EPA 20:36: [place] (FISH OIL Medical ORAL) Branch vitamin E Yes 1000U Take 1,000 U nivers 1,000 unit 1-23 Units by ity o f capsule 20:36: mouth [place] 33 daily. Medical Branch Magnesium Yes Take by [facility] ers 250 mg Tab 1-23 mouth. ity of 20:36: [place] [address] Medical Branch vitamin B-6 Yes 100mg Take 100 [facility]ivers (VITAMIN 1-23 mg by ity of B-6) 100 mg 20:36: mouth [place] tablet 33 daily. Medical Branch CALCIUM Yes Take by Univer s CARBONATE/V 1-23 mouth. ity of ITAMIN D3 20:36: [place] (VITAMIN 33 Medical D-3 ORAL) Branch alcaftadine Yes Place in [facility]ivers (LASTACAFT) 1-23 each eye. ity of 0.25 % Drop 20:36: [place] [address] Medical Branch CYCLOSPORIN Yes Place in [facility] E (RESTASIS 1-23 each eye. ity of OPHTHALMIC) 20:36: [place] [address] Medical Branch ASCORBATE Yes Take by Univ ers CALCIUM 1-23 mouth. ity of (VITAMIN C 20:36: [place] ORAL) Medical Branch DOCOSAHEXAN Yes Take by [facility] 1- mouth. ity of ACID/EPA 20:36: [place] (FISH OIL 33 Medical ORAL) Branch vitamin E Yes 1000U Take 1,000 U nivers 1,000 unit 1-23 Units by ity o f capsule 20:36: mouth [place] 33 daily. Medical Branch Magnesium Yes Take by Univ ers 250 mg Tab - mouth. ity of 20:36: [place] [address] Medical Branch vitamin B-6 Yes 100mg Take 100 [facility]ivers (VITAMIN 1-23 mg by ity of B-6) 100 mg 20:36: mouth [place] tablet 33 daily. Medical Branch CALCIUM Yes Take by Univer s CARBONATE/V - mouth. ity of ITAMIN D3 20:36: [place] (VITAMIN 33 Medical D-3 ORAL) Branch alcaftadine Yes Place in U nivers (LASTACAFT) 10-09 each eye. ity of 0.25 % Drop 20:36: [place] [address] Medical Branch CYCLOSPORIN Yes Place in U [facility]ivers E (RESTASIS 10-09 each eye. ity of OPHTHALMIC) 20:36: [place] [address] Medical Branch ASCORBATE Yes Take by Univ ers CALCIUM - mouth. ity of (VITAMIN C 20:36: [place] ORAL) Medical Branch DOCOSAHEXAN Yes Take by [facility] - mouth. ity of ACID/EPA 20:36: [place] (FISH OIL 33 Medical ORAL) Branch vitamin E Yes 1000U Take 1,000 U nivers 1,000 unit 1-23 Units by ity o f capsule 20:36: mouth [place] 33 daily. Medical Branch Magnesium Yes Take by [facility] 250 mg Tab 1- mouth. ity of 20:36: [place] [address] Medical Branch vitamin B-6 Yes 100mg Take 100 [facility]ivers (VITAMIN 1-23 mg by ity of B-6) 100 mg 20:36: mouth [place] tablet 33 daily. Medical Branch CALCIUM 0 Yes Take by Univer s CARBONATE/V -23 mouth. ity of ITAMIN D3 20:36: [place] (VITAMIN 33 Medical D-3 ORAL) Branch alcaftadine Yes Place in U nivers (LASTACAFT) 1-23 each eye. ity of 0.25 % Drop 20:36: [place] [address] Medical Branch CYCLOSPORIN 2019-[address] in [facility]ivers E (RESTASIS 1-23 each eye. ity of OPHTHALMIC) 20:36: [place] [address] Medical Branch ASCORBATE 2018-0 Yes Take by Univ ers CALCIUM 1-23 mouth. ity of (VITAMIN C 20:36: [place] ORAL) Medical Branch DOCOSAHEXAN Yes Take by [facility] - mouth. ity of ACID/EPA 20:36: [place] (FISH OIL 33 Medical ORAL) Branch vitamin E Yes 1000U Take 1,000 U nivers 1,000 unit 1-23 Units by ity o f capsule 20:36: mouth [place] 33 daily. Medical Branch Magnesium Yes Take by [facility] 250 mg Tab - mouth. ity of 20:36: [place] [address] Medical Branch vitamin B-6 Yes 100mg Take 100 U nivers (VITAMIN 1-23 mg by ity of B-6) 100 mg 20:36: mouth [place] tablet 33 daily. Medical Branch CALCIUM Yes Take by Univer s CARBONATE/V 10-09 mouth. ity of ITAMIN D3 20:36: [place] (VITAMIN Medical D-3 ORAL) Branch alcaftadine Yes Place in U nivers (LASTACAFT) 1-23 each eye. ity of 0.25 % Drop 20:36: [place] [address] Medical Branch CYCLOSPORIN Yes Place in U nivers E (RESTASIS 1-23 each eye. ity of OPHTHALMIC) 20:36: [place] [address] Medical Branch ASCORBATE 0 Yes Take by Univ ers CALCIUM -23 mouth. ity of (VITAMIN C 20:36: [place] ORAL) Medical Branch DOCOSAHEXAN 0 Yes Take by [facility] 1-23 mouth. ity of ACID/EPA 20:36: [place] (FISH OIL 33 Medical ORAL) Branch vitamin E Yes 1000U Take 1,000 U nivers 1,000 unit 1-23 Units by ity o f capsule 20:36: mouth [place] 33 daily. Medical Branch Magnesium 2019-0 Yes Take by Univ ers 250 mg Tab 1-23 mouth. ity of 20:36: [place] [address] Medical Branch vitamin B-6 0 Yes 100mg Take 100 U nivers (VITAMIN 1-23 mg by ity of B-6) 100 mg 20:36: mouth [place] tablet 33 daily. Medical Branch CALCIUM Yes Take by Univer s CARBONATE/V - mouth. ity of ITAMIN D3 20:36: [place] (VITAMIN 33 Medical D-3 ORAL) Branch alcaftadine Yes Place in U nivers (LASTACAFT) 1- each eye. ity of 0.25 % Drop 20:36: [place] [address] Medical Branch CYCLOSPORIN Yes Place in [facility] nivers E (RESTASIS 10-09 each eye. ity of OPHTHALMIC) 20:36: [place] [address] Medical Branch ASCORBATE Yes Take by Univ ers CALCIUM - mouth. ity of (VITAMIN C 20:36: [place] ORAL) Medical Branch DOCOSAHEXAN Yes Take by [facility] 10-09 mouth. ity of ACID/EPA 20:36: [place] (FISH OIL 33 Medical ORAL) Branch vitamin E Yes 1000U Take 1,000 U nivers 1,000 unit 10-09 Units by ity o f capsule 20:36: mouth [place] 33 daily. Medical Branch Magnesium Yes Take by Univ ers 250 mg Tab 10-09 mouth. ity of 20:36: [place] [address] [facility] Branch vitamin B-6 Yes 100mg Take 100 U nivers (VITAMIN 1-23 mg by ity of B-6) 100 mg 20:36: mouth [place] tablet 33 daily. Medical Branch CALCIUM Yes Take by Univer s CARBONATE/V - mouth. ity of ITAMIN D3 20:36: [place] (VITAMIN 33 Medical D-3 ORAL) Branch alcaftadine Yes Place in U nivers (LASTACAFT) 1- each eye. ity of 0.25 % Drop 20:36: [place] [address] Medical Branch CYCLOSPORIN Yes Place in U nivers E (RESTASIS 10-09 each eye. ity of OPHTHALMIC) 20:36: [place] [address] Medical Branch ASCORBATE 0 Yes Take by Univ ers CALCIUM -23 mouth. ity of (VITAMIN C 20:36: [place] ORAL) Medical Branch DOCOSAHEXAN Yes Take by [facility] - mouth. ity of ACID/EPA 20:36: [place] (FISH OIL 33 Medical ORAL) Branch vitamin E Yes 1000U Take 1,000 U nivers 1,000 unit 1-23 Units by ity o f capsule 20:36: mouth [place] 33 daily. Medical Branch Magnesium 0 Yes Take by Univ ers 250 mg Tab 1-23 mouth. ity of 20:36: [address] vitamin B-6 Yes 100mg Take 100 U nivers (VITAMIN 1-23 mg by ity of B-6) 100 mg 20:36: mouth [place] tablet 33 daily. Medical Branch CALCIUM Yes Take by Univer s CARBONATE/V 1-23 mouth. ity of ITAMIN D3 20:36: [place] (VITAMIN 33 Medical D-3 ORAL) Branch alcaftadine Yes Place in U nivers (LASTACAFT) 1-23 each eye. ity of 0.25 % Drop 20:36: [address] Branch CYCLOSPOR[address] Yes Place in U nivers E (RESTASIS 1-23 each eye. ity of OPHTHALMIC) 20:36: [address] Branch ASCORBATE Yes Take by Univ ers CALCIUM 1-23 mouth. ity of (VITAMIN C 20:36: [place] ORAL) Medical Branch DOCOSAHEXAN Yes Take by [facility] 1- mouth. ity of ACID/EPA 20:36: [place] (FISH OIL 33 Medical ORAL) Branch vitamin E Yes 1000U Take 1,000 U nivers 1,000 unit 1-23 Units by ity o f capsule 20:36: mouth [place] 33 daily. Medical Branch Magnesium Yes Take by Univ ers 250 mg Tab 1-23 mouth. ity of 20:36: [address] Branch vitamin B-6 Yes 100mg Take 100 U nivers (VITAMIN 1-23 mg by ity of B-6) 100 mg 20:36: mouth [place] tablet 33 daily. Medical Branch CALCIUM Yes Take by Univer s CARBONATE/V 1-23 mouth. ity of ITAMIN D3 20:36: [place] (VITAMIN 33 Medical D-3 ORAL) [place] alcaftadine Yes Place in U nivers (LASTACAFT) 1-23 each eye. ity of 0.25 % Drop 20:36: [address] Branch CYCLOSPOR[address] Yes Place in U nivers E (RESTASIS 1-23 each eye. ity of OPHTHALMIC) 20:36: [place] [address] Medical Branch ASCORBATE Yes Take by Univ ers CALCIUM 1-23 mouth. ity of (VITAMIN C 20:36: [place] ORAL) Medical Branch DOCOSAHEXAN Yes Take by [facility] - mouth. ity of ACID/EPA 20:36: [place] (FISH OIL 33 Medical ORAL) Branch vitamin E Yes 1000U Take 1,000 U nivers 1,000 unit 1-23 Units by ity o f capsule 20:36: mouth [place] 33 daily. Medical Branch Magnesium Yes Take by Univ ers 250 mg Tab - mouth. ity of 20:36: [place] [address] Medical Branch vitamin B-6 Yes 100mg Take 100 U nivers (VITAMIN 1-23 mg by ity of B-6) 100 mg 20:36: mouth [place] tablet 33 daily. [facility]-09 mouth. ity of ITAMIN D3 20:36: [place] ([place] [address] Medical D-3 ORAL) Branch alcaftadine Yes Place in U nivers (LASTACAFT) 1- each eye. ity of 0.25 % Drop 20:36: [place] [address] Medical Branch CYCLOSPORIN Yes Place in U nivers E (RESTASIS 1-23 each eye. ity of OPHTHALMIC) 20:36: [place] [address] Medical Branch ASCORBATE Yes Take by [facility] ers CALCIUM -23 mouth. ity of (VITAMIN C 20:36: [place] ORAL) Medical Branch DOCOSAHEXAN Yes Take by [facility] - mouth. ity of ACID/EPA 20:36: [place] (FISH OIL 33 Medical ORAL) Branch vitamin E Yes 1000U Take 1,000 U nivers 1,000 unit 1-23 Units by ity o f capsule 20:36: mouth [place] 33 daily. Medical Branch Magnesium Yes Take by Univ ers 250 mg Tab -23 mouth. ity of 20:36: [place] [address] Medical Branch vitamin B-6 Yes 100mg Take 100 U nivers (VITAMIN 1-23 mg by ity of B-6) 100 mg 20:36: mouth [place] tablet 33 daily. Medical Branch CALCIUM Yes Take by Univer s CARBONATE/V 1-23 mouth. ity of ITAMIN D3 20:36: [place] (VITAMIN 33 Medical D-3 ORAL) Branch Immunizations Ordered Filled Immunization Date Status Comments [facility] e Immunization Name Name Pneumococcal 2019-04-25 Completed University o f Polysaccharide, 00:00:00 [place] [facility] ical PPSV23 (PNEUMOVAX) Branch Pneumococcal 2019-04-25 Completed University o f Polysaccharide, 00:00:00 [place] [facility] ical PPSV23 (PNEUMOVAX) Branch Pneumococcal 2019-04-25 Completed University o f Polysaccharide, 00:00:00 [place] [facility] ical PPSV23 (PNEUMOVAX) Branch Pneumococcal 2019-04-25 Completed University o f Polysaccharide, 00:00:00 [place] [facility] ical PPSV23 (PNEUMOVAX) Branch Pneumococcal 2019-04-25 Completed University o f Polysaccharide, 00:00:00 [place] [facility] ical PPSV23 (PNEUMOVAX) Branch Pneumococcal 2019-04-25 Completed University o f Polysaccharide, 00:00:00 [place] [facility] ical PPSV23 (PNEUMOVAX) Branch Pneumococcal 2019-04-25 Completed University o f Polysaccharide, 00:00:00 [place] [facility] ical PPSV23 (PNEUMOVAX) Branch Pneumococcal 2019-04-25 Completed University o f Polysaccharide, 00:00:00 [place] [facility] ical PPSV23 (PNEUMOVAX) Branch Pneumococcal 2019-04-25 Completed University o f Polysaccharide, 00:00:00 [place] [facility] ical PPSV23 (PNEUMOVAX) Branch Pneumococcal 2019-04-25 Completed University o f Polysaccharide, 00:00:00 [place] [facility] ical PPSV23 (PNEUMOVAX) Branch Pneumococcal 2019-04-25 Completed University o f Polysaccharide, 00:00:00 [place] [facility] ical PPSV23 (PNEUMOVAX) Branch Pneumococcal 2019-04-25 Completed University o f Polysaccharide, 00:00:00 [place] [facility] ical PPSV23 (PNEUMOVAX) Branch Pneumococcal 2019-04-25 Completed University o f Polysaccharide, 00:00:00 [place] [facility] ical PPSV23 (PNEUMOVAX) Branch Pneumococcal 2019-04-25 Completed University o f Polysaccharide, 00:00:00 [place] [facility] ical PPSV23 (PNEUMOVAX) Branch Pneumococcal 2019-04-25 Completed University o f Polysaccharide, 00:00:00 [place] [facility] ical PPSV23 (PNEUMOVAX) Branch Pneumococcal 2019-04-25 Completed University o f Polysaccharide, 00:00:00 [place] [facility] ical PPSV23 (PNEUMOVAX) Branch Pneumococcal 2019-04-25 Completed University o f Polysaccharide, 00:00:00 [place] [facility] ical PPSV23 (PNEUMOVAX) Branch Pneumococcal 2019-04-25 Completed University o f Polysaccharide, 00:00:00 [place] [facility] ical PPSV23 (PNEUMOVAX) Branch Pneumococcal 2019-04-25 Completed University o f Polysaccharide, 00:00:00 [place] [facility] ical PPSV23 (PNEUMOVAX) Branch Pneumococcal 2019-04-25 Completed University o f Polysaccharide, 00:00:00 [place] [facility] ical PPSV23 (PNEUMOVAX) Branch Pneumococcal 2019-04-25 Completed University o f Polysaccharide, 00:00:00 [place] [facility] ical PPSV23 (PNEUMOVAX) Branch Pneumococcal 2019-04-25 Completed University o f Polysaccharide, 00:00:00 [place] [facility] ical PPSV23 (PNEUMOVAX) Branch Pneumococcal 2019-04-25 Completed University o f Polysaccharide, 00:00:00 [place] [facility] ical PPSV23 (PNEUMOVAX) Branch Pneumococcal 2019-04-25 Completed University o f Polysaccharide, 00:00:00 [place] Med ical PPSV23 (PNEUMOVAX) Branch Pneumococcal 2019-04-25 Completed University o f Polysaccharide, 00:00:00 [place] [facility] ical PPSV23 (PNEUMOVAX) Branch Pneumococcal 2019-04-25 Completed University o f Polysaccharide, 00:00:00 [place] Med ical PPSV23 (PNEUMOVAX) Branch Pneumococcal 2019-04-25 Completed University o f Polysaccharide, 00:00:00 [place] Med ical PPSV23 (PNEUMOVAX) Branch Pneumococcal 2019-04-25 Completed University o f Polysaccharide, 00:00:00 [place] Med ical PPSV23 (PNEUMOVAX) Branch Pneumococcal 2019-04-25 Completed University o f Polysaccharide, 00:00:00 [place] Med ical PPSV23 (PNEUMOVAX) Branch Pneumococcal 2019-04-25 Completed University o f Polysaccharide, 00:00:00 [place] Med ical PPSV23 (PNEUMOVAX) Branch Pneumococcal 2019-04-25 Completed University o f Polysaccharide, 00:00:00 [place] Med ical PPSV23 (PNEUMOVAX) Branch Pneumococcal 2019-04-25 Completed University o f Polysaccharide, 00:00:00 [place] Med ical PPSV23 (PNEUMOVAX) Branch Pneumococcal 2019-04-25 Completed University o f Polysaccharide, 00:00:00 [place] Med ical PPSV23 (PNEUMOVAX) Branch Pneumococcal 2019-04-25 Completed University o f Polysaccharide, 00:00:00 [place] [facility] ical PPSV23 (PNEUMOVAX) Branch Pneumococcal 2019-04-25 Completed University o f Polysaccharide, 00:00:00 [place] [facility] ical PPSV23 (PNEUMOVAX) Branch Pneumococcal 2019-04-25 Completed University o f Polysaccharide, 00:00:00 [place] [facility] ical PPSV23 (PNEUMOVAX) Branch Pneumococcal 2019-04-25 Completed University o f Polysaccharide, 00:00:00 [place] [facility] ical PPSV23 (PNEUMOVAX) Branch Pneumococcal 2019-04-25 Completed University o f Polysaccharide, 00:00:00 [place] Med ical PPSV23 (PNEUMOVAX) Branch Pneumococcal 2019-04-25 Completed University o f Polysaccharide, 00:00:00 [place] [facility] ical PPSV23 (PNEUMOVAX) Branch Pneumococcal 2019-04-25 Completed University o f Polysaccharide, 00:00:00 [place] [facility] ical PPSV23 (PNEUMOVAX) Branch Pneumococcal 2019-04-25 Completed University o f Polysaccharide, 00:00:00 [place] [facility] ical PPSV23 (PNEUMOVAX) Branch Pneumococcal 2019-04-25 Completed University o f Polysaccharide, 00:00:00 [place] [facility] ical PPSV23 (PNEUMOVAX) Branch Pneumococcal 2019-04-25 Completed University o f Polysaccharide, 00:00:00 [place] [facility] ical PPSV23 (PNEUMOVAX) Branch Pneumococcal 2019-04-25 Completed University o f Polysaccharide, 00:00:00 [place] [facility] ical PPSV23 (PNEUMOVAX) Branch Pneumococcal 2019-04-25 Completed University o f Polysaccharide, 00:00:00 [place] [facility] ical PPSV23 (PNEUMOVAX) Branch Pneumococcal 2019-04-25 Completed University o f Polysaccharide, 00:00:00 [place] [facility] ical PPSV23 (PNEUMOVAX) Branch Pneumococcal 2019-04-25 Completed University o f Polysaccharide, 00:00:00 [place] [facility] ical PPSV23 (PNEUMOVAX) Branch Pneumococcal 2019-04-25 Completed University o f Polysaccharide, 00:00:00 [place] [facility] ical PPSV23 (PNEUMOVAX) Branch Pneumococcal 2019-04-25 Completed University o f Polysaccharide, 00:00:00 [place] [facility] PPSV23 (PNEUMOVAX) Branch Pneumococcal 2019-04-25 Completed University o f Polysaccharide, 00:00:00 [place] [facility] ical PPSV23 (PNEUMOVAX) Branch Pneumococcal 2019-04-25 Completed University o f Polysaccharide, 00:00:00 [place] [facility] PPSV23 (PNEUMOVAX) Branch Pneumococcal 2019-04-25 Completed University o f Polysaccharide, 00:00:00 [place] [facility] ical PPSV23 (PNEUMOVAX) Branch Pneumococcal 2019-04-25 Completed University o f Polysaccharide, 00:00:00 [place] [facility] ical PPSV23 (PNEUMOVAX) Branch Pneumococcal 2019-04-25 Completed University o f Polysaccharide, 00:00:00 [place] [facility] ical PPSV23 (PNEUMOVAX) Branch Pneumococcal 2019-04-25 Completed University o f Polysaccharide, 00:00:00 [place] [facility] ical PPSV23 (PNEUMOVAX) Branch Pneumococcal 2019-04-25 Completed University o f Polysaccharide, 00:00:00 [place] [facility] ical PPSV23 (PNEUMOVAX) Branch Pneumococcal 2019-04-25 Completed University o f Polysaccharide, 00:00:00 [place] [facility] ical PPSV23 (PNEUMOVAX) Branch Pneumococcal 2019-04-25 Completed University o f Polysaccharide, 00:00:00 [place] Med ical PPSV23 (PNEUMOVAX) Branch Pneumococcal 2019-04-25 Completed University o f Polysaccharide, 00:00:00 [place] [facility] ical PPSV23 (PNEUMOVAX) Branch Pneumococcal 2019-04-25 Completed University o f Polysaccharide, 00:00:00 [place] [facility] ical PPSV23 (PNEUMOVAX) Branch Pneumococcal 2019-04-25 Completed University o f Polysaccharide, 00:00:00 [place] [facility] ical PPSV23 (PNEUMOVAX) Branch Pneumococcal 2019-04-25 Completed University o f Polysaccharide, 00:00:00 [place] [facility] ical PPSV23 (PNEUMOVAX) Branch Pneumococcal 2019-04-25 Completed University o f Polysaccharide, 00:00:00 [place] [facility] ical PPSV23 (PNEUMOVAX) Branch Pneumococcal 2019-04-25 Completed University o f Polysaccharide, 00:00:00 [place] [facility] ical PPSV23 (PNEUMOVAX) Branch Pneumococcal 2019-04-25 Completed University o f Polysaccharide, 00:00:00 [place] [facility] ical PPSV23 (PNEUMOVAX) Branch Pneumococcal 2019-04-25 Completed University o f Polysaccharide, 00:00:00 [place] [facility] ical PPSV23 (PNEUMOVAX) Branch Pneumococcal 2019-04-25 Completed University o f Polysaccharide, 00:00:00 [place] [facility] ical PPSV23 (PNEUMOVAX) Branch Pneumococcal 2019-04-25 Completed University o f Polysaccharide, 00:00:00 [place] [facility] ical PPSV23 (PNEUMOVAX) Branch Pneumococcal 2019-04-25 Completed University o f Polysaccharide, 00:00:00 [place] [facility] ical PPSV23 (PNEUMOVAX) Branch Pneumococcal 2019-04-25 Completed University o f Polysaccharide, 00:00:00 [place] [facility] ical PPSV23 (PNEUMOVAX) Branch Pneumococcal 2019-04-25 Completed University o f Polysaccharide, 00:00:00 [place] [facility] ical PPSV23 (PNEUMOVAX) Branch Pneumococcal 2019-04-25 Completed University o f Polysaccharide, 00:00:00 [place] [facility] ical PPSV23 (PNEUMOVAX) Branch Pneumococcal 2019-04-25 Completed University o f Polysaccharide, 00:00:00 [place] [facility] ical PPSV23 (PNEUMOVAX) Branch Pneumococcal 2019-04-25 Completed University o f Polysaccharide, 00:00:00 [place] [facility] ical PPSV23 (PNEUMOVAX) Branch Pneumococcal 2019-04-25 Completed University o f Polysaccharide, 00:00:00 [place] [facility] ical PPSV23 (PNEUMOVAX) Branch Pneumococcal 2019-04-25 Completed University o f Polysaccharide, 00:00:00 [place] [facility] ical PPSV23 (PNEUMOVAX) Branch Pneumococcal 2019-04-25 Completed University o f Polysaccharide, 00:00:00 [place] [facility] ical PPSV23 (PNEUMOVAX) Branch Pneumococcal 2019-04-25 Completed University o f Polysaccharide, 00:00:00 [place] [facility] ical PPSV23 (PNEUMOVAX) Branch Pneumococcal 2019-04-25 Completed University o f Polysaccharide, 00:00:00 [place] [facility] ical PPSV23 (PNEUMOVAX) Branch Pneumococcal 2019-04-25 Completed University o f Polysaccharide, 00:00:00 [place] [facility] ical PPSV23 (PNEUMOVAX) Branch Pneumococcal 2019-04-25 Completed University o f Polysaccharide, 00:00:00 [place] [facility] ical PPSV23 (PNEUMOVAX) Branch Pneumococcal 2019-04-25 Completed University o f Polysaccharide, 00:00:00 [place] [facility] ical PPSV23 (PNEUMOVAX) Branch Pneumococcal 2019-04-25 Completed University o f Polysaccharide, 00:00:00 [place] [facility] ical PPSV23 (PNEUMOVAX) Branch Pneumococcal 2019-04-25 Completed University o f Polysaccharide, 00:00:00 [place] [facility] ical PPSV23 (PNEUMOVAX) Branch Pneumococcal 2019-04-25 Completed University o f Polysaccharide, 00:00:00 [place] [facility] ical PPSV23 (PNEUMOVAX) Branch Pneumococcal 2019-04-25 Completed University o f Polysaccharide, 00:00:00 [place] [facility] ical PPSV23 (PNEUMOVAX) Branch Pneumococcal 2019-04-25 Completed University o f Polysaccharide, 00:00:00 [place] [facility] ical PPSV23 (PNEUMOVAX) Branch Pneumococcal 2019-04-25 Completed University o f Polysaccharide, 00:00:00 [place] [facility] ical PPSV23 (PNEUMOVAX) Branch Pneumococcal 2019-04-25 Completed University o f Polysaccharide, 00:00:00 [place] [facility] ical PPSV23 (PNEUMOVAX) Branch Pneumococcal 2019-04-25 Completed University o f Polysaccharide, 00:00:00 [place] [facility] ical PPSV23 (PNEUMOVAX) Branch Pneumococcal 2019-04-25 Completed University o f Polysaccharide, 00:00:00 [place] [facility] PPSV23 (PNEUMOVAX) Branch Pneumococcal 2019-04-25 Completed University o f Polysaccharide, 00:00:00 [place] [facility] PPSV23 (PNEUMOVAX) Branch Pneumococcal 2019-04-25 Completed University o f Polysaccharide, 00:00:00 [place] [facility] PPSV23 (PNEUMOVAX) Branch Pneumococcal 2019-04-25 Completed University o f Polysaccharide, 00:00:00 [place] [facility] PPSV23 (PNEUMOVAX) Branch Pneumococcal 2019-04-25 Completed University o f Polysaccharide, 00:00:00 [place] [facility] PPSV23 (PNEUMOVAX) Branch Pneumococcal 2019-04-25 Completed University o f Polysaccharide, 00:00:00 [place] [facility] ical PPSV23 (PNEUMOVAX) Branch Pneumococcal 2019-04-25 Completed University o f Polysaccharide, 00:00:00 [place] [facility] ical PPSV23 (PNEUMOVAX) Branch Pneumococcal 2019-04-25 Completed University o f Polysaccharide, 00:00:00 [place] [facility] ical PPSV23 (PNEUMOVAX) Branch Pneumococcal 2019-04-25 Completed University o f Polysaccharide, 00:00:00 [place] [facility] ical PPSV23 (PNEUMOVAX) Branch Pneumococcal 2019-04-25 Completed University o f Polysaccharide, 00:00:00 [place] [facility] ical PPSV23 (PNEUMOVAX) Branch Pneumococcal 2019-04-25 Completed University o f Polysaccharide, 00:00:00 [place] [facility] ical PPSV23 (PNEUMOVAX) Branch Pneumococcal 2019-04-25 Completed University o f Polysaccharide, 00:00:00 [place] [facility] ical PPSV23 (PNEUMOVAX) Branch Pneumococcal 2019-04-25 Completed University o f Polysaccharide, 00:00:00 [place] [facility] ical PPSV23 (PNEUMOVAX) Branch Pneumococcal 2019-04-25 Completed University o f Polysaccharide, 00:00:00 [place] [facility] ical PPSV23 (PNEUMOVAX) Branch Pneumococcal 2019-04-25 Completed University o f Polysaccharide, 00:00:00 [place] [facility] PPSV23 (PNEUMOVAX) Branch Pneumococcal 2019-04-25 Completed University o f Polysaccharide, 00:00:00 [place] [facility] PPSV23 (PNEUMOVAX) Branch Pneumococcal 2019-04-25 Completed University o f Polysaccharide, 00:00:00 [place] [facility] PPSV23 (PNEUMOVAX) Branch Pneumococcal 2019-04-25 Completed University o f Polysaccharide, 00:00:00 [place] [facility] PPSV23 (PNEUMOVAX) Branch Pneumococcal 2019-04-25 Completed University o f Polysaccharide, 00:00:00 [place] [facility] PPSV23 (PNEUMOVAX) Branch Pneumococcal 2019-04-25 Completed University o f Polysaccharide, 00:00:00 [place] [facility] ical PPSV23 (PNEUMOVAX) Branch Pneumococcal 2019-04-25 Completed University o f Polysaccharide, 00:00:00 [place] [facility] PPSV23 (PNEUMOVAX) Branch Pneumococcal 2019-04-25 Completed University o f Polysaccharide, 00:00:00 [place] [facility] PPSV23 (PNEUMOVAX) Branch Pneumococcal 2019-04-25 Completed University o f Polysaccharide, 00:00:00 [place] [facility] ical PPSV23 (PNEUMOVAX) Branch Pneumococcal 2019-04-25 Completed University o f Polysaccharide, 00:00:00 [place] [facility] PPSV23 (PNEUMOVAX) Branch Pneumococcal 2019-04-25 Completed University o f Polysaccharide, 00:00:00 [place] [facility] ical PPSV23 (PNEUMOVAX) Branch Pneumococcal 2019-04-25 Completed University o f Polysaccharide, 00:00:00 [place] [facility] ical PPSV23 (PNEUMOVAX) Branch Pneumococcal 2019-04-25 Completed [facility] Polysaccharide, 00:00:00 [place] [facility] PPSV23 (PNEUMOVAX) Branch Pneumococcal 2019-04-25 Completed [facility] Polysaccharide, 00:00:00 [place] [facility] PPSV23 (PNEUMOVAX) Branch Pneumococcal 2019-04-25 Completed [facility] Polysaccharide, 00:00:00 [place] [facility] PPSV23 (PNEUMOVAX) Branch Pneumococcal 2019-04-25 Completed [facility] Polysaccharide, 00:00:00 [place] [facility] PPSV23 (PNEUMOVAX) Branch Pneumococcal 2019-04-25 Completed [facility] f Polysaccharide, 00:00:00 [place] [facility] PPSV23 (PNEUMOVAX) Branch Pneumococcal 2019-04-25 Completed [facility] Polysaccharide, 00:00:00 [place] [facility] PPSV23 (PNEUMOVAX) Branch Pneumococcal 2019-04-25 Completed [facility] f Polysaccharide, 00:00:00 [place] [facility] PPSV23 (PNEUMOVAX) Branch Pneumococcal 2019-04-25 Completed [facility] Polysaccharide, 00:00:00 [place] [facility] PPSV23 (PNEUMOVAX) Branch Pneumococcal 2019-04-25 Completed [facility] f Polysaccharide, 00:00:00 [place] [facility] PPSV23 (PNEUMOVAX) Branch Pneumococcal 2019-04-25 Completed [facility] f Polysaccharide, 00:00:00 [place] [facility] PPSV23 (PNEUMOVAX) Branch Pneumococcal 2019-04-25 Completed [facility] f Polysaccharide, 00:00:00 [place] [facility] PPSV23 (PNEUMOVAX) Branch Pneumococcal 2019-04-25 Completed [facility] f Polysaccharide, 00:00:00 [place] [facility] PPSV23 (PNEUMOVAX) Branch Pneumococcal 2019-04-25 Completed [facility] f Polysaccharide, 00:00:00 [place] [facility] PPSV23 (PNEUMOVAX) Branch Pneumococcal 2019-04-25 Completed [facility] f Polysaccharide, 00:00:00 [place] [facility] PPSV23 (PNEUMOVAX) Branch Pneumococcal 2019-04-25 Completed [facility] f Polysaccharide, 00:00:00 [place] [facility] PPSV23 (PNEUMOVAX) Branch Pneumococcal 2019-04-25 Completed [facility] f Polysaccharide, 00:00:00 [place] [facility] PPSV23 (PNEUMOVAX) Branch Pneumococcal 2019-04-25 Completed [facility] f Polysaccharide, 00:00:00 [place] [facility] PPSV23 (PNEUMOVAX) Branch Pneumococcal 2019-04-25 Completed [facility] f Polysaccharide, 00:00:00 [place] [facility] PPSV23 (PNEUMOVAX) Branch Pneumococcal 2019-04-25 Completed [facility] f Polysaccharide, 00:00:00 [place] [facility] PPSV23 (PNEUMOVAX) Branch Pneumococcal 2019-04-25 Completed [facility] f Polysaccharide, 00:00:00 [place] [facility] PPSV23 (PNEUMOVAX) Branch Pneumococcal 2019-04-25 Completed [facility] f Polysaccharide, 00:00:00 [place] [facility] PPSV23 (PNEUMOVAX) Branch Pneumococcal 2019-04-25 Completed [facility] f Polysaccharide, 00:00:00 [place] [facility] PPSV23 (PNEUMOVAX) Branch Pneumococcal 2019-04-25 Completed [facility] f Polysaccharide, 00:00:00 [place] [facility] PPSV23 (PNEUMOVAX) Branch Pneumococcal 2019-04-25 Completed [facility] f Polysaccharide, 00:00:00 [place] [facility] PPSV23 (PNEUMOVAX) Branch Pneumococcal 13 2017-08-27 Completed Universit y of Conjugate, PCV13 00:00:00 [place] [facility] (Prevnar 13) Branch Pneumococcal 13 2017-08-27 Completed [facility]it [facility] of Conjugate, PCV13 00:00:00 [place] [facility] (Prevnar 13) Branch Pneumococcal 13 2017-08-27 Completed [facility] of Conjugate, PCV13 00:00:00 [place] [facility] (Prevnar 13) Branch Pneumococcal 13 2017-08-27 Completed [facility] of Conjugate, PCV13 00:00:00 [place] [facility] (Prevnar 13) Branch Pneumococcal 13 2017-08-27 Completed [facility] of Conjugate, PCV13 00:00:00 [place] [facility] (Prevnar 13) Branch Pneumococcal 13 2017-08-27 Completed [facility] of Conjugate, PCV13 00:00:00 [place] [facility] (Prevnar 13) Branch Pneumococcal 13 2017-08-27 Completed [facility] of Conjugate, PCV13 00:00:00 [place] [facility] (Prevnar 13) Branch Pneumococcal 13 2017-08-27 Completed [facility] of Conjugate, PCV13 00:00:00 [place] [facility] (Prevnar 13) Branch Pneumococcal 13 2017-08-27 Completed [facility] of Conjugate, PCV13 00:00:00 [place] [facility] (Prevnar 13) Branch Pneumococcal 13 2017-08-27 Completed [facility] Conjugate, PCV13 00:00:00 [place] [facility] (Prevnar 13) Branch Pneumococcal 13 2017-08-27 Completed [facility] of Conjugate, PCV13 00:00:00 [place] [facility] (Prevnar 13) Branch Pneumococcal 13 2017-08-27 Completed [facility] of Conjugate, PCV13 00:00:00 [place] [facility] (Prevnar 13) Branch Pneumococcal 13 2017-08-27 Completed [facility] of Conjugate, PCV13 00:00:00 [place] [facility] (Prevnar 13) Branch Pneumococcal 13 2017-08-27 Completed [facility] of Conjugate, PCV13 00:00:00 [place] [facility] (Prevnar 13) Branch Pneumococcal 13 2017-08-27 Completed [facility] of Conjugate, PCV13 00:00:00 [place] [facility] (Prevnar 13) Branch Pneumococcal 13 2017-08-27 Completed [facility] of Conjugate, PCV13 00:00:00 [place] [facility] (Prevnar 13) Branch Pneumococcal 13 2017-08-27 Completed [facility] of Conjugate, PCV13 00:00:00 [place] [facility] (Prevnar 13) Branch Pneumococcal 13 2017-08-27 Completed [facility] Conjugate, PCV13 00:00:00 [place] [facility] (Prevnar 13) Branch Pneumococcal 13 2017-08-27 Completed [facility] of Conjugate, PCV13 00:00:00 [place] [facility] (Prevnar 13) Branch Pneumococcal 13 2017-08-27 Completed [facility] Conjugate, PCV13 00:00:00 [place] [facility] (Prevnar 13) Branch Pneumococcal 13 2017-08-27 Completed [facility] Conjugate, PCV13 00:00:00 [place] [facility] (Prevnar 13) Branch Pneumococcal 13 2017-08-27 Completed [facility] Conjugate, PCV13 00:00:00 [place] [facility] (Prevnar 13) Branch Pneumococcal 13 2017-08-27 Completed [facility] Conjugate, PCV13 00:00:00 [place] [facility] (Prevnar 13) Branch Pneumococcal 13 2017-08-27 Completed [facility] Conjugate, PCV13 00:00:00 [place] [facility] (Prevnar 13) Branch Pneumococcal 13 2017-08-27 Completed [facility] Conjugate, PCV13 00:00:00 [place] [facility] (Prevnar 13) Branch Pneumococcal 13 2017-08-27 Completed [facility] Conjugate, PCV13 00:00:00 [place] [facility] (Prevnar 13) Branch Pneumococcal 13 2017-08-27 Completed [facility] Conjugate, PCV13 00:00:00 [place] [facility] (Prevnar 13) Branch Pneumococcal 13 2017-08-27 Completed [facility] Conjugate, PCV13 00:00:00 [place] [facility] (Prevnar 13) Branch Pneumococcal 13 2017-08-27 Completed [facility] Conjugate, PCV13 00:00:00 [place] [facility] (Prevnar 13) Branch Pneumococcal 13 2017-08-27 Completed [facility] Conjugate, PCV13 00:00:00 [place] [facility] (Prevnar 13) Branch Pneumococcal 13 2017-08-27 Completed [facility] Conjugate, PCV13 00:00:00 [place] [facility] (Prevnar 13) Branch Pneumococcal 13 2017-08-27 Completed [facility] Conjugate, PCV13 00:00:00 [place] [facility] (Prevnar 13) Branch Pneumococcal 13 2017-08-27 Completed [facility] Conjugate, PCV13 00:00:00 [place] [facility] (Prevnar 13) Branch Pneumococcal 13 2017-08-27 Completed [facility] Conjugate, PCV13 00:00:00 [place] [facility] (Prevnar 13) Branch Pneumococcal 13 2017-08-27 Completed [facility] Conjugate, PCV13 00:00:00 [place] [facility] (Prevnar 13) Branch Pneumococcal 13 2017-08-27 Completed [facility] Conjugate, PCV13 00:00:00 [place] [facility] (Prevnar 13) Branch Pneumococcal 13 2017-08-27 Completed [facility] Conjugate, PCV13 00:00:00 [place] [facility] (Prevnar 13) Branch Pneumococcal 13 2017-08-27 Completed [facility] Conjugate, PCV13 00:00:00 [place] [facility] (Prevnar 13) Branch Pneumococcal 13 2017-08-27 Completed [facility] Conjugate, PCV13 00:00:00 [place] [facility] (Prevnar 13) Branch Pneumococcal 13 2017-08-27 Completed [facility] Conjugate, PCV13 00:00:00 [place] [facility] (Prevnar 13) Branch Pneumococcal 13 2017-08-27 Completed [facility] Conjugate, PCV13 00:00:00 [place] [facility] (Prevnar 13) Branch Pneumococcal 13 2017-08-27 Completed [facility] Conjugate, PCV13 00:00:00 [place] [facility] (Prevnar 13) Branch Pneumococcal 13 2017-08-27 Completed [facility] Conjugate, PCV13 00:00:00 [place] [facility] (Prevnar 13) Branch Pneumococcal 13 2017-08-27 Completed [facility] Conjugate, PCV13 00:00:00 [place] [facility] (Prevnar 13) Branch Pneumococcal 13 2017-08-27 Completed [facility] Conjugate, PCV13 00:00:00 [place] [facility] (Prevnar 13) Branch Pneumococcal 13 2017-08-27 Completed [facility] Conjugate, PCV13 00:00:00 [place] [facility] (Prevnar 13) Branch Pneumococcal 13 2017-08-27 Completed [facility] Conjugate, PCV13 00:00:00 [place] [facility] (Prevnar 13) Branch Pneumococcal 13 2017-08-27 Completed [facility] Conjugate, PCV13 00:00:00 [place] [facility] (Prevnar 13) Branch Pneumococcal 13 2017-08-27 Completed [facility] Conjugate, PCV13 00:00:00 [place] [facility] (Prevnar 13) Branch Pneumococcal 13 2017-08-27 Completed [facility] Conjugate, PCV13 00:00:00 [place] [facility] (Prevnar 13) Branch Pneumococcal 13 2017-08-27 Completed [facility] Conjugate, PCV13 00:00:00 [place] [facility] (Prevnar 13) Branch Pneumococcal 13 2017-08-27 Completed [facility] Conjugate, PCV13 00:00:00 [place] [facility] (Prevnar 13) Branch Pneumococcal 13 2017-08-27 Completed [facility] of Conjugate, PCV13 00:00:00 [place] [facility] (Prevnar 13) Branch Pneumococcal 13 2017-08-27 Completed [facility] of Conjugate, PCV13 00:00:00 [place] [facility] (Prevnar 13) Branch Pneumococcal 13 2017-08-27 Completed [facility] of Conjugate, PCV13 00:00:00 [place] [facility] (Prevnar 13) Branch Pneumococcal 13 2017-08-27 Completed [facility] Conjugate, PCV13 00:00:00 [place] [facility] (Prevnar 13) Branch Pneumococcal 13 2017-08-27 Completed [facility] of Conjugate, PCV13 00:00:00 [place] [facility] (Prevnar 13) Branch Pneumococcal 13 2017-08-27 Completed [facility] of Conjugate, PCV13 00:00:00 [place] [facility] (Prevnar 13) Branch Pneumococcal 13 2017-08-27 Completed [facility] of Conjugate, PCV13 00:00:00 [place] [facility] (Prevnar 13) Branch Pneumococcal 13 2017-08-27 Completed [facility] of Conjugate, PCV13 00:00:00 [place] [facility] (Prevnar 13) Branch Pneumococcal 13 2017-08-27 Completed [facility] Conjugate, PCV13 00:00:00 [place] [facility] (Prevnar 13) Branch Pneumococcal 13 2017-08-27 Completed [facility] Conjugate, PCV13 00:00:00 [place] [facility] (Prevnar 13) Branch Pneumococcal 13 2017-08-27 Completed [facility] Conjugate, PCV13 00:00:00 [place] [facility] (Prevnar 13) Branch Pneumococcal 13 2017-08-27 Completed [facility] of Conjugate, PCV13 00:00:00 [place] [facility] (Prevnar 13) Branch Pneumococcal 13 2017-08-27 Completed [facility] Conjugate, PCV13 00:00:00 [place] [facility] (Prevnar 13) Branch Pneumococcal 13 2017-08-27 Completed [facility] of Conjugate, PCV13 00:00:00 [place] [facility] (Prevnar 13) Branch Pneumococcal 13 2017-08-27 Completed [facility] of Conjugate, PCV13 00:00:00 [place] [facility] (Prevnar 13) Branch Pneumococcal 13 2017-08-27 Completed [facility] Conjugate, PCV13 00:00:00 [place] [facility] (Prevnar 13) Branch Pneumococcal 13 2017-08-27 Completed [facility] of Conjugate, PCV13 00:00:00 [place] [facility] (Prevnar 13) Branch Pneumococcal 13 2017-08-27 Completed [facility] Conjugate, PCV13 00:00:00 [place] [facility] (Prevnar 13) Branch Pneumococcal 13 2017-08-27 Completed [facility] Conjugate, PCV13 00:00:00 [place] [facility] (Prevnar 13) Branch Pneumococcal 13 2017-08-27 Completed [facility] Conjugate, PCV13 00:00:00 [place] [facility] (Prevnar 13) Branch Pneumococcal 13 2017-08-27 Completed [facility] of Conjugate, PCV13 00:00:00 [place] [facility] (Prevnar 13) Branch Pneumococcal 13 2017-08-27 Completed [facility] Conjugate, PCV13 00:00:00 [place] [facility] (Prevnar 13) Branch Pneumococcal 13 2017-08-27 Completed [facility] Conjugate, PCV13 00:00:00 [place] [facility] (Prevnar 13) Branch Pneumococcal 13 2017-08-27 Completed [facility] Conjugate, PCV13 00:00:00 [place] [facility] (Prevnar 13) Branch Pneumococcal 13 2017-08-27 Completed [facility] Conjugate, PCV13 00:00:00 [place] [facility] (Prevnar 13) Branch Pneumococcal 13 2017-08-27 Completed [facility] Conjugate, PCV13 00:00:00 [place] [facility] (Prevnar 13) Branch Pneumococcal 13 2017-08-27 Completed [facility] Conjugate, PCV13 00:00:00 [place] [facility] (Prevnar 13) Branch Pneumococcal 13 2017-08-27 Completed [facility] Conjugate, PCV13 00:00:00 [place] [facility] (Prevnar 13) Branch Pneumococcal 13 2017-08-27 Completed [facility] Conjugate, PCV13 00:00:00 [place] [facility] (Prevnar 13) Branch Pneumococcal 13 2017-08-27 Completed [facility] Conjugate, PCV13 00:00:00 [place] [facility] (Prevnar 13) Branch Pneumococcal 13 2017-08-27 Completed [facility] of Conjugate, PCV13 00:00:00 [place] [facility] (Prevnar 13) Branch Pneumococcal 13 2017-08-27 Completed [facility] Conjugate, PCV13 00:00:00 [place] [facility] (Prevnar 13) Branch Pneumococcal 13 2017-08-27 Completed [facility] Conjugate, PCV13 00:00:00 [place] [facility] (Prevnar 13) Branch Pneumococcal 13 2017-08-27 Completed [facility] Conjugate, PCV13 00:00:00 [place] [facility] (Prevnar 13) Branch Pneumococcal 13 2017-08-27 Completed [facility] Conjugate, PCV13 00:00:00 [place] [facility] (Prevnar 13) Branch Pneumococcal 13 2017-08-27 Completed [facility] Conjugate, PCV13 00:00:00 [place] [facility] (Prevnar 13) Branch Pneumococcal 13 2017-08-27 Completed [facility] of Conjugate, PCV13 00:00:00 [place] [facility] (Prevnar 13) Branch Pneumococcal 13 2017-08-27 Completed [facility] of Conjugate, PCV13 00:00:00 [place] [facility] (Prevnar 13) Branch Pneumococcal 13 2017-08-27 Completed [facility] of Conjugate, PCV13 00:00:00 [place] [facility] (Prevnar 13) Branch Pneumococcal 13 2017-08-27 Completed [facility] of Conjugate, PCV13 00:00:00 [place] [facility] (Prevnar 13) Branch Pneumococcal 13 2017-08-27 Completed [facility] of Conjugate, PCV13 00:00:00 [place] [facility] (Prevnar 13) Branch Pneumococcal 13 2017-08-27 Completed [facility] Conjugate, PCV13 00:00:00 [place] [facility] (Prevnar 13) Branch Pneumococcal 13 2017-08-27 Completed [facility] of Conjugate, PCV13 00:00:00 [place] [facility] (Prevnar 13) Branch Pneumococcal 13 2017-08-27 Completed [facility] of Conjugate, PCV13 00:00:00 [place] [facility] (Prevnar 13) Branch Pneumococcal 13 2017-08-27 Completed [facility] of Conjugate, PCV13 00:00:00 [place] [facility] (Prevnar 13) Branch Pneumococcal 13 2017-08-27 Completed [facility] of Conjugate, PCV13 00:00:00 [place] [facility] (Prevnar 13) Branch Pneumococcal 13 2017-08-27 Completed [facility] of Conjugate, PCV13 00:00:00 [place] [facility] (Prevnar 13) Branch Pneumococcal 13 2017-08-27 Completed [facility] of Conjugate, PCV13 00:00:00 [place] [facility] (Prevnar 13) Branch Pneumococcal 13 2017-08-27 Completed [facility] of Conjugate, PCV13 00:00:00 [place] [facility] (Prevnar 13) Branch Pneumococcal 13 2017-08-27 Completed [facility] of Conjugate, PCV13 00:00:00 [place] [facility] (Prevnar 13) Branch Pneumococcal 13 2017-08-27 Completed [facility] of Conjugate, PCV13 00:00:00 [place] [facility] (Prevnar 13) Branch Pneumococcal 13 2017-08-27 Completed [facility] of Conjugate, PCV13 00:00:00 [place] [facility] (Prevnar 13) Branch Pneumococcal 13 2017-08-27 Completed [facility] of Conjugate, PCV13 00:00:00 [place] [facility] (Prevnar 13) Branch Pneumococcal 13 2017-08-27 Completed [facility] of Conjugate, PCV13 00:00:00 [place] [facility] (Prevnar 13) Branch Pneumococcal 13 2017-08-27 Completed [facility] of Conjugate, PCV13 00:00:00 [place] [facility] (Prevnar 13) Branch Pneumococcal 13 2017-08-27 Completed [facility] of Conjugate, PCV13 00:00:00 [place] [facility] (Prevnar 13) Branch Pneumococcal 13 2017-08-27 Completed [facility] of Conjugate, PCV13 00:00:00 [place] [facility] (Prevnar 13) Branch Pneumococcal 13 2017-08-27 Completed [facility] of Conjugate, PCV13 00:00:00 [place] [facility] (Prevnar 13) Branch Pneumococcal 13 2017-08-27 Completed [facility] of Conjugate, PCV13 00:00:00 [place] [facility] (Prevnar 13) Branch Pneumococcal 13 2017-08-27 Completed [facility] of Conjugate, PCV13 00:00:00 [place] [facility] (Prevnar 13) Branch Pneumococcal 13 2017-08-27 Completed [facility] of Conjugate, PCV13 00:00:00 [place] [facility] (Prevnar 13) Branch Pneumococcal 13 2017-08-27 Completed [facility] of Conjugate, PCV13 00:00:00 [place] [facility] (Prevnar 13) Branch Pneumococcal 13 2017-08-27 Completed [facility] of Conjugate, PCV13 00:00:00 [place] [facility] (Prevnar 13) Branch Pneumococcal 13 2017-08-27 Completed [facility] of Conjugate, PCV13 00:00:00 [place] [facility] (Prevnar 13) Branch Pneumococcal 13 2017-08-27 Completed [facility] of Conjugate, PCV13 00:00:00 [place] [facility] (Prevnar 13) Branch Pneumococcal 13 2017-08-27 Completed [facility] of Conjugate, PCV13 00:00:00 [place] [facility] (Prevnar 13) Branch Pneumococcal 13 2017-08-27 Completed [facility] of Conjugate, PCV13 00:00:00 [place] [facility] (Prevnar 13) Branch Pneumococcal 13 2017-08-27 Completed [facility] of Conjugate, PCV13 00:00:00 [place] [facility] (Prevnar 13) Branch Pneumococcal 13 2017-08-27 Completed [facility] of Conjugate, PCV13 00:00:00 [place] [facility] (Prevnar 13) Branch Pneumococcal 13 2017-08-27 Completed [facility] of Conjugate, PCV13 00:00:00 [place] [facility] (Prevnar 13) Branch Pneumococcal 13 2017-08-27 Completed [facility] of Conjugate, PCV13 00:00:00 [place] [facility] (Prevnar 13) Branch Pneumococcal 13 2017-08-27 Completed [facility] of Conjugate, PCV13 00:00:00 [place] [facility] (Prevnar 13) Branch Pneumococcal 13 2017-08-27 Completed [facility] of Conjugate, PCV13 00:00:00 [place] [facility] (Prevnar 13) Branch Pneumococcal 13 2017-08-27 Completed [facility] of Conjugate, PCV13 00:00:00 [place] [facility] (Prevnar 13) Branch Pneumococcal 13 2017-08-27 Completed [facility] of Conjugate, PCV13 00:00:00 [place] [facility] (Prevnar 13) Branch Pneumococcal 13 2017-08-27 Completed [facility] of Conjugate, PCV13 00:00:00 [place] [facility] (Prevnar 13) Branch Pneumococcal 13 2017-08-27 Completed [facility] of Conjugate, PCV13 00:00:00 [place] [facility] (Prevnar 13) Branch Pneumococcal 13 2017-08-27 Completed [facility] of Conjugate, PCV13 00:00:00 [place] [facility] (Prevnar 13) Branch Pneumococcal 13 2017-08-27 Completed [facility] of Conjugate, PCV13 00:00:00 [place] [facility] (Prevnar 13) Branch Pneumococcal 13 2017-08-27 Completed [facility] of Conjugate, PCV13 00:00:00 [place] [facility] (Prevnar 13) Branch Pneumococcal 13 2017-08-27 Completed [facility] of Conjugate, PCV13 00:00:00 [place] [facility] (Prevnar 13) Branch Pneumococcal 13 2017-08-27 Completed [facility] of Conjugate, PCV13 00:00:00 [place] [facility] (Prevnar 13) Branch Pneumococcal 13 2017-08-27 Completed [facility] of Conjugate, PCV13 00:00:00 [place] [facility] (Prevnar 13) Branch Pneumococcal 13 2017-08-27 Completed [facility] of Conjugate, PCV13 00:00:00 [place] [facility] (Prevnar 13) Branch Pneumococcal 13 2017-08-27 Completed [facility] of Conjugate, PCV13 00:00:00 [place] [facility] (Prevnar 13) Branch Pneumococcal 13 2017-08-27 Completed [facility]it [facility] of Conjugate, PCV13 00:00:00 [place] [facility] (Prevnar 13) Branch Pneumococcal 13 2017-08-27 Completed [facility]it [facility] of Conjugate, PCV13 00:00:00 [place] [facility] (Prevnar 13) Branch Pneumococcal 13 2017-08-27 Completed [facility]it [facility] of Conjugate, PCV13 00:00:00 [place] [facility] (Prevnar 13) Branch Pneumococcal 13 2017-08-27 Completed [facility] of Conjugate, PCV13 00:00:00 [place] [facility] (Prevnar 13) Branch Pneumococcal 13 2017-08-27 Completed [facility]it y of Conjugate, PCV13 00:00:00 [place] [facility] dical (Prevnar 13) Branch Vital Signs Vital Name Observation Time Observation Value Comments Source Systolic blood 2021-03-08 145 mm[Hg] University of pressure 20:03:00 [facility] Diastolic blood 2021-03-08 82 mm[Hg] University o f pressure 20:03:00 [facility] Heart rate 2021-03-08 83 /min University of 20:03:00 [facility] Body temperature 2021-03-08 36.06 [place] [facility] of 20:03:00 [facility] Body height 2021-03-08 149.9 cm University of 20:03:00 [facility] Body weight 2021-03-08 73.301 kg University of 20:03:00 [facility] BMI 2021-03-08 32.64 kg/m2 University of 20:03:00 [facility] Oxygen saturation 2021-03-08 96 /min [facility] in Arterial blood 20:03:00 [facility] Pulse oximetry Branch Systolic blood 2021-02-07 131 mm[Hg] University of pressure 20:47:00 [facility] Diastolic blood 2021-02-07 61 mm[Hg] University o f pressure 20:47:00 [facility] Heart rate 2021-02-07 86 /min University of 20:47:00 [facility] Body temperature 2021-02-07 36.61 [place] [facility] of 20:47:00 [facility] Body height 2021-02-07 149.9 cm University of 20:47:00 [facility] Body weight 2021-02-07 77.111 kg University of 20:47:00 [facility] BMI 2021-02-07 34.34 kg/m2 University of 20:47:00 [facility] Systolic blood 2021-02-04 157 mm[Hg] University of pressure 22:01:00 [facility] Branch Diastolic blood 2021-02-04 78 mm[Hg] University o f pressure 22:01:00 [facility] Branch Heart rate 2021-02-04 66 /min University of 21:58:00 [facility] Body temperature 2021-02-04 35.67 [place] [facility] of 21:58:00 [facility] Branch Respiratory rate 2021-02-04 17 /min University of 21:58:00 [facility] Body height 2021-02-04 149.9 cm University of 21:58:00 [facility] Body weight 2021-02-04 75.751 kg University of 21:58:00 [facility] BMI 2021-02-04 33.73 kg/m2 University of 21:58:00 [facility] Oxygen saturation 2021-02-04 98 /min [facility] of in Arterial blood 21:58:00 [place] [facility] Pulse oximetry [facility] Systolic blood 2021-01-25 162 mm[Hg] [facility] of pressure 20:01:00 [facility] Branch Diastolic blood 2021-01-25 54 mm[Hg] University o f pressure 20:01:00 [facility] Branch Heart rate 2021-01-25 60 /min University of 19:53:00 [facility] Branch Respiratory rate 2021-01-25 16 /min [facility] of 19:53:00 [facility] Body weight 2021-01-25 76.658 kg University of 19:53:00 [facility] BMI 2021-01-25 34.13 kg/m2 University of 19:53:00 [facility] Branch Oxygen saturation 2021-01-25 96 /min [facility] of in Arterial blood 19:53:00 [place] [facility] Pulse oximetry Branch Systolic blood 2020-11-14 139 mm[Hg] [facility] of pressure 21:00:00 [facility] Diastolic blood 2020-11-14 55 mm[Hg] [facility] o f pressure 21:00:00 [facility] Branch Heart rate 2020-11-14 61 /min [facility] of 21:00:00 [facility] Respiratory rate 2020-11-14 16 /min [facility] of 21:00:00 [facility] Branch Oxygen saturation 2020-11-14 95 /min [facility] of in Arterial blood 21:00:00 [place] [facility] Pulse oximetry Branch Body temperature 2020-11-14 36.72 [place] [facility] of 18:42:00 [facility] Body weight 2020-11-14 75.751 kg University of 18:42:00 [facility] BMI 2020-11-14 33.73 kg/m2 University of 18:42:00 [facility] Systolic blood 2020-11-09 152 mm[Hg] University of pressure 16:31:00 [facility] Diastolic blood 2020-11-09 79 mm[Hg] University o f pressure 16:31:00 [facility] Heart rate 2020-11-09 65 /min University of 16:31:00 [facility] Body temperature 2020-11-09 36.06 [place] [facility] of 16:31:00 [facility] Respiratory rate 2020-11-09 18 /min University of 16:31:00 [facility] Body height 2020-11-09 149.9 cm University of 16:31:00 [facility] Body weight 2020-11-09 76.204 kg University of 16:31:00 [facility] BMI 2020-11-09 33.93 kg/m2 University of 16:31:00 [facility] Oxygen saturation 2020-11-09 99 /min University of in Arterial blood 16:31:00 [place] [facility] Pulse oximetry [facility] Systolic blood 2020-09-28 131 mm[Hg] University of pressure 15:39:00 [facility] Diastolic blood 2020-09-28 67 mm[Hg] University o f pressure 15:39:00 [facility] Heart rate 2020-09-28 62 /min University of 15:39:00 [facility] Body temperature 2020-09-28 36.22 [place] University of 15:39:00 [facility] Respiratory rate 2020-09-28 18 /min University of 15:39:00 [facility] Body height 2020-09-28 149.9 cm University of 15:39:00 [facility] Body weight 2020-09-28 74.254 kg University of 15:39:00 [facility] BMI 2020-09-28 33.06 kg/m2 University of 15:39:00 [facility] Oxygen saturation 2020-09-28 99 /min University of in Arterial blood 15:39:00 [place] [facility] Pulse oximetry [facility] Systolic blood 2020-09-21 136 mm[Hg] University of pressure 19:16:00 [facility] Diastolic blood 2020-09-21 63 mm[Hg] University o f pressure 19:16:00 [facility] Heart rate 2020-09-21 62 /min University of 19:16:00 [facility] Body temperature 2020-09-21 36.67 [place] University of 19:11:00 [facility] Body height 2020-09-21 149.9 cm University of 19:11:00 [facility] Body weight 2020-09-21 74.844 kg University of 19:11:00 [facility] BMI 2020-09-21 33.33 kg/m2 University of 19:11:00 [facility] Systolic blood 2020-08-31 142 mm[Hg] University of pressure 04:35:10 [facility] Diastolic blood 2020-08-31 55 mm[Hg] University o f pressure 04:35:10 [facility] Heart rate 2020-08-31 67 /min [place] of 04:35:10 [facility] Body temperature 2020-08-31 37.11 [place] of 04:35:10 [facility] Respiratory rate 2020-08-31 16 /min University of 04:35:10 [facility] Oxygen saturation 2020-08-31 96 /min [facility] in Arterial blood 04:35:10 [facility] by Pulse oximetry Branch Body height 2020-08-31 149.9 cm University of 00:44:00 [facility] Body weight 2020-08-31 76.658 kg University of 00:44:00 [facility] BMI 2020-08-31 34.13 kg/m2 University of 00:44:00 [facility] Systolic blood 2020-08-23 120 mm[Hg] University of pressure 22:47:00 [facility] Diastolic blood 2020-08-23 63 mm[Hg] University o f pressure 22:47:00 [facility] Heart rate 2020-08-23 62 /min University of 22:47:00 [facility] Body temperature 2020-08-23 36.72 [place] University of 22:47:00 [facility] Body height 2020-08-23 149.9 cm University of 22:47:00 [facility] Body weight 2020-08-23 76.658 kg University of 22:47:00 [facility] BMI 2020-08-23 34.13 kg/m2 University of 22:47:00 [facility] Systolic blood 2020-08-11 114 mm[Hg] University of pressure 21:20:00 [facility] Diastolic blood 2020-08-11 58 mm[Hg] University o f pressure 21:20:00 [facility] Heart rate 2020-08-11 64 /min University of 21:20:00 [facility] Respiratory rate 2020-08-11 19 /min University of 21:20:00 [facility] Body height 2020-08-11 149.9 cm University of 21:20:00 [facility] Body weight 2020-08-11 76.204 kg University of 21:20:00 [facility] BMI 2020-08-11 33.93 kg/m2 University of 21:20:00 [facility] Oxygen saturation 2020-08-11 95 /min University of in Arterial blood 21:20:00 [place] [facility] Pulse o[facility] Systolic blood 2020-08-09 124 mm[Hg] University of pressure 20:49:00 [facility] Diastolic blood 2020-08-09 60 mm[Hg] University o f pressure 20:49:00 [facility] Heart rate 2020-08-09 64 /min University of 20:49:00 [facility] Respiratory rate 2020-08-09 19 /min University of 20:49:00 [facility] Body height 2020-08-09 149.9 cm University of 20:49:00 [facility] Body weight 2020-08-09 76.204 kg University of 20:49:00 [facility] BMI 2020-08-09 33.93 kg/m2 University of 20:49:00 [facility] Oxygen saturation 2020-08-09 96 /min University of in Arterial blood 20:49:00 [place] [facility] Pulse o[facility] Systolic blood 2020-07-09 129 mm[Hg] University of pressure 17:01:00 [facility] Diastolic blood 2020-07-09 66 mm[Hg] University o f pressure 17:01:00 [facility] Heart rate 2020-07-09 61 /min University of 17:01:00 [facility] Respiratory rate 2020-07-09 18 /min University of 17:01:00 [facility] Body height 2020-07-09 149.9 cm University of 17:01:00 [facility] Body weight 2020-07-09 76.204 kg University of 17:01:00 [facility] BMI 2020-07-09 33.93 kg/m2 University of 17:01:00 [facility] Systolic blood 2020-07-07 132 mm[Hg] University of pressure 19:25:00 [facility] Diastolic blood 2020-07-07 73 mm[Hg] University o f pressure 19:25:00 [facility] Heart rate 2020-07-07 68 /min University of 19:25:00 [facility] Respiratory rate 2020-07-07 19 /min University of 19:25:00 [facility] Body height 2020-07-07 149.9 cm University of 19:25:00 [facility] Body weight 2020-07-07 74.844 kg University of 19:25:00 [facility] BMI 2020-07-07 33.33 kg/m2 University of 19:25:00 [facility] Oxygen saturation 2020-07-07 97 /min University of in Arterial blood 19:25:00 [place] [facility] Pulse oxim[facility] Body height 2020-06-21 149.9 cm University of 20:25:00 [facility] Body weight 2020-06-21 77.111 kg University of 20:25:00 [facility] BMI 2020-06-21 34.34 kg/m2 University of 20:25:00 [facility] Systolic blood 2020-06-09 115 mm[Hg] University of pressure 19:34:00 [facility] Diastolic blood 2020-06-09 60 mm[Hg] University o f pressure 19:34:00 [facility] Heart rate 2020-06-09 76 /min University of 19:34:00 [facility] Respiratory rate 2020-06-09 19 /min University of 19:34:00 [facility] Body height 2020-06-09 149.9 cm University of 19:34:00 [facility] Body weight 2020-06-09 75.978 kg University of 19:34:00 [facility] BMI 2020-06-09 33.83 kg/m2 University of 19:34:00 [facility] Oxygen saturation 2020-06-09 95 /min University of in Arterial blood 19:34:00 [place] [facility] Pulse oxim[facility] Systolic blood 2020-06-07 144 mm[Hg] patient has not University of pressure 15:24:00 taken bp [place] [facility] Diastolic blood 2020-06-07 79 mm[Hg] patient has not Universit y of pressure 15:24:00 taken bp [place] [facility] Heart rate 2020-06-07 93 /min University of 15:24:00 [facility] Body temperature 2020-06-07 36.67 [place] University of 15:24:00 [facility] Body height 2020-06-07 149.9 cm University of 15:24:00 [facility] Body weight 2020-06-07 76.114 kg University of 15:24:00 [facility] BMI 2020-06-07 33.89 kg/m2 University of 15:24:00 [facility] Systolic blood 2020-06-03 142 mm[Hg] University of pressure 22:00:00 [facility] Diastolic blood 2020-06-03 64 mm[Hg] University o f pressure 22:00:00 [facility] Heart rate 2020-06-03 80 /min University of :00:00 [facility] Body temperature 2020-06-03 37.22 [place] University of 22:00:00 [facility] Respiratory rate 2020-06-03 15 /min University of 22:00:00 [facility] Oxygen saturation 2020-06-03 98 /min University of in Arterial blood 22:00:00 [place] [facility] Pulse o[facility] Body weight 2020-06-03 68.04 kg University of 20:19:00 [facility] BMI 2020-06-03 30.30 kg/m2 University of 20:19:00 [facility] Systolic blood 2020-05-10 129 mm[Hg] University of pressure 19:25:00 [facility] Diastolic blood 2020-05-10 79 mm[Hg] University o f pressure 19:25:00 [facility] Heart rate 2020-05-10 85 /min University of 19:25:00 [facility] Body temperature 2020-05-10 36.33 [place] University of 19:25:00 [facility] Body height 2020-05-10 149.9 cm University of 19:25:00 [facility] Body weight 2020-05-10 75.116 kg University of 19:25:00 [facility] BMI 2020-05-10 33.45 kg/m2 University of 19:25:00 [facility] Oxygen saturation 2020-05-10 97 /min University of in Arterial blood 19:25:00 [place] [facility] Pulse oximetry [place] Systolic blood 2020-02-26 134 mm[Hg] University of pressure 19:37:00 [facility] Diastolic blood 2020-02-26 72 mm[Hg] University o f pressure 19:37:00 [facility] Heart rate 2020-02-26 71 /min University of 19:37:00 [place] [facility] Respiratory rate 2020-02-26 19 /min University of 19:37:00 [facility] Body height 2020-02-26 149.9 cm University of 19:37:00 [facility] Body weight 2020-02-26 75.751 kg University of 19:37:00 [facility] BMI 2020-02-26 33.73 kg/m2 University of 19:37:00 [facility] Oxygen saturation 2020-02-26 99 /min University of in Arterial blood 19:37:00 [place] [facility] Pulse oxim[facility] Heart rate 2019-12-09 90 /min University of 21:40:00 [facility] Body temperature 2019-12-09 36.56 [place] University of :40:00 [facility] Respiratory rate 2019-12-09 18 /min University of :40:00 [facility] Oxygen saturation 2019-12-09 95 /min University of in Arterial blood 21:40:00 [place] [facility] by Pulse oximetry [facility] Systolic blood 2019-12-09 122 mm[Hg] University of pressure 17:00:00 [facility] Diastolic blood 2019-12-09 65 mm[Hg] University o f pressure 17:00:00 [facility] Body weight 2019-12-09 74.707 kg University of 05:30:00 [facility] BMI 2019-12-09 33.27 kg/m2 University of 05:30:00 [facility] Body height 2019-12-07 149.9 cm University of 05:30:00 [facility] Respiratory rate 2019-11-15 16 /min University of 02:46:00 [facility] Oxygen saturation 2019-11-15 97 /min University of in Arterial blood 02:46:00 [place] [facility] by Pulse oximetry [facility] Systolic blood 2019-11-15 159 mm[Hg] University of pressure 02:24:00 [place] [facility] Diastolic blood 2019-11-15 72 mm[Hg] University o f pressure 02:24:00 [facility] Heart rate 2019-11-15 75 /min University of 02:24:00 [facility] Body temperature 2019-11-14 37 [place] University of 23:50:00 [facility] Body height 2019-11-14 149.9 cm University of 23:50:00 [facility] Body weight 2019-11-14 74.844 kg University of 23:50:00 [facility] BMI 2019-11-14 33.33 kg/m2 University of 23:50:00 [facility] Systolic blood 2019-11-09 136 mm[Hg] University of pressure 01:04:00 [facility] Diastolic blood 2019-11-09 61 mm[Hg] University o f pressure 01:04:00 [facility] Heart rate 2019-11-09 80 /min University of 01:03:00 [facility] Body temperature 2019-11-09 36.67 [place] University of 01:03:00 [facility] Respiratory rate 2019-11-09 20 /min University of 01:03:00 [facility] Body height 2019-11-09 149.9 cm University of 01:03:00 [facility] Body weight 2019-11-09 76.658 kg University of 01:03:00 [facility] BMI 2019-11-09 34.13 kg/m2 University of 01:03:00 [facility] Oxygen saturation 2019-11-09 95 /min [facility] in Arterial blood 01:03:00 [facility] [place] [facility] Pulse oximetry [place] Systolic blood 2019-10-30 156 mm[Hg] University of pressure 16:21:00 [facility] Diastolic blood 2019-10-30 80 mm[Hg] University o f pressure 16:21:00 [facility] Heart rate 2019-10-30 77 /min University of 15:40:00 [facility] Body temperature 2019-10-30 36.61 [place] University of 15:40:00 [facility] Body height 2019-10-30 149.9 cm University of 15:40:00 [facility] Body weight 2019-10-30 76.204 kg University of 15:40:00 [facility] BMI 2019-10-30 33.93 kg/m2 University of 15:40:00 [facility] Systolic blood 2019-06-05 125 mm[Hg] University of pressure 18:17:00 [facility] Diastolic blood 2019-06-05 75 mm[Hg] University o f pressure 18:17:00 [facility] Heart rate 2019-06-05 80 /min University of 18:17:00 [facility] Body temperature 2019-06-05 36.67 [place] University of 18:17:00 [facility] Respiratory rate 2019-06-05 18 /min University of 18:17:00 [facility] Body height 2019-06-05 149.9 cm University of 18:17:00 [facility] Body weight 2019-06-05 74.844 kg University of 18:17:00 [facility] BMI 2019-06-05 33.33 kg/m2 University of 18:17:00 [facility] Systolic blood 2019-06-02 117 mm[Hg] University of pressure 23:21:00 [facility] Diastolic blood 2019-06-02 68 mm[Hg] University o f pressure 23:21:00 [facility] Heart rate 2019-06-02 64 /min University of 23:21:00 [facility] Body temperature 2019-06-02 36.61 [place] University of 23:21:00 [facility] Respiratory rate 2019-06-02 18 /min University of 23:21:00 [facility] Body height 2019-06-02 149.9 cm University of 23:21:00 [facility] Body weight 2019-06-02 74.571 kg University of 23:21:00 [facility] BMI 2019-06-02 33.20 kg/m2 University of 23:21:00 [facility] Oxygen saturation 2019-06-02 98 /min University in Arterial blood 23:21:00 [facility] [place] [facility] Pulse oximetry [place] Systolic blood 2019-04-25 125 mm[Hg] University of pressure 18:26:00 [facility] Diastolic blood 2019-04-25 68 mm[Hg] University o f pressure 18:26:00 [facility] Heart rate 2019-04-25 71 /min University of 18:26:00 [facility] Body temperature 2019-04-25 36.94 [place] University of 18:26:00 [facility] Body height 2019-04-25 149.9 cm University of 18:26:00 [facility] Body weight 2019-04-25 75.297 kg University of 18:26:00 [facility] BMI 2019-04-25 33.53 kg/m2 University of 18:26:00 [facility] Procedures Procedure Date / Time Performing Clinician Source Performed MEDICATION CORRESPONDENCE 2021-04-27 05:01:00 Doctor Unassigned, [facility] Name Medical [place] REFERRAL- REQUEST/RESPONSE 2021-03-07 05:01:00 Doctor Unassigned , [facility] [place] [facility] MEDICATION CORRESPONDENCE 2021-02-09 05:01:00 Doctor Unassigned, [facility] [place] [facility] FERRITIN SERUM 2021-01-26 14:05:00 Kiana Fraser [facility] THYROID STIMULATING 2021-01-26 14:05:00 Kiana Fraser [facility] HORMONE [facility] Branch COMP. METABOLIC PANEL 2021-01-26 14:05:00 [id number] LIPID PANEL ([id number])(TOTAL 2021-01-26 14:05:00 Kiana Fraser [facility] CHOLESTEROL, [facility] TRIGLYCERIDES, HDL) IRON PANEL 2021-01-26 14:05:00 Kiana Fraser [facility] CBC WITHOUT DIFF 2021-01-26 14:05:00 Kiana Fraser [facility] GLYCOSYLATED HEMOGLOBIN 2021-01-26 14:05:00 [facility] (A1C) [facility] CT ABDOMEN PELVIS W 2020-11-14 19:55:51 Chad Shi [facility] CONTRAST [facility] URINALYSIS 2020-11-14 19:30:00 Chad Shi [facility] COVID-19 (ID NOW RAPID 2020-11-14 19:06:00 Chad Shi [facility] TESTING) Medical Branch LIPASE 2020-11-14 19:05:00 Chad Shi [facility] TROPONIN I 2020-11-14 19:05:00 Chad Shi [facility] HEPATIC FUNCTION PANEL 2020-11-14 19:05:00 Chad Shi [facility] ([id number]) (ALB,T.PRO,BILI Medical Branch T,BU/BC,ALT,AST,ALK PHOS) BASIC METABOLIC PANEL (NA, 2020-11-14 19:05:00 Chad Shi [facility] K, CL, CO2, GLUCOSE, BUN, Medica l Branch CREATININE, [place]) CBC WITH DIFF 2020-11-14 19:05:00 Chad Shi [facility] PROTHROMBIN TIME / INR 2020-11-14 19:05:00 Chad [facility] [place] [facility] ACTIVATED PARTIAL THRMPLAS 2020-11-14 19:05:00 Chad Shi U [facility] Medical Branch NOTICE OF PRIVACY 2020-11-14 18:26:59 Doctor Ger, [facility] PRACTICES [place] [facility] [place] CONSENT/REFUSAL FOR 2020-11-14 18:26:36 Doctor Ger, [facility] DIAGNOSIS AND TREATMENT [place] [facility] [place] EXTERNAL PROVIDER RECORDS 2020-10-08 06:01:00 Doctor Ger, [facility] [place] [facility] [place] HOME HEALTH - OTHER 2020-10-06 06:01:00 Doctor Ger, [facility] Medical [place] ASSIGNMENT OF BENEFITS 2020-10-05 19:31:32 Doctor Ger, [facility] Medical [place] CONSENT/REFUSAL FOR 2020-08-31 00:30:55 Doctor eGr [facility] DIAGNOSIS AND TREATMENT [place] [facility] [place] DEXA AXIAL (HIP AND SPINE) 2020-08-25 20:11:01 Kiana Fraser [facility] XR HIPS 2 VW BILATERAL 2020-08-25 19:16:37 Kiana Fraser [facility] DME/SUPPLY JUSTIFICATION 2020-08-11 06:01:00 Doctor Ger [facility] Medical [place] SLEEP STUDY DATA REPORT 2020-07-17 05:01:00 Doctor Cyr [facility] Medical Branch COVID-19 (ID NOW RAPID 2020-06-11 19:31:00 Kiana Fraser [facility] TESTING) Medical Branch ASSIGNMENT OF BENEFITS 2020-06-11 19:08:54 Doctor Ger, [facility] [place] XR CHEST 1 VW COVID 2020-06-03 21:07:32 Ko Breen [facility] Medical Branch COVID-19 (ID NOW RAPID 2020-06-03 20:56:00 Ko Breen [facility] TESTING) Medical Branch TROPONIN I 2020-06-03 20:47:00 Ko Breen [facility] [place] COMP. METABOLIC PANEL 2020-06-03 20:47:00 Ko Breen [facility] ([id number]) Medical Branch CBC WITH DIFF 2020-06-03 20:47:00 Ko Breen [facility] PROTHROMBIN TIME / INR 2020-06-03 20:47:00 Ko Breen [facility] N-TERMINAL PRO-BNP 2020-06-03 20:47:00 Ko Breen [facility] EKG-12 LEAD 2020-06-03 20:26:00 Avani Anderson [facility] CONSENT/REFUSAL FOR 2020-06-03 20:08:11 Doctor Unassigned, [facility] DIAGNOSIS AND TREATMENT [place] [facility] INSURANCE CORRESPONDENCE 2020-04-12 05:01:00 Doctor Unassigned, [facility] REFERRAL- REQUEST/RESPONSE 2020-02-16 05:01:00 Doctor Unassigned , [facility] REFERRAL- REQUEST/RESPONSE 2020-01-12 05:01:00 Doctor Unassigned , [facility] POCT GLUCOSE (AUTOMATED) 2019-12-09 21:00:00 Kelly Mittal [facility] POCT GLUCOSE (AUTOMATED) 2019-12-09 16:34:00 Donald [facility] POCT GLUCOSE (AUTOMATED) 2019-12-09 12:27:00 [facility] THYROID STIMULATING 2019-12-09 10:55:00 Kelly Mittal [facility] HORMONE [facility] BASIC METABOLIC PANEL (NA, 2019-12-09 10:55:00 Kelly Mittal [facility] K, CL, CO2, GLUCOSE, BUN, Medica l Branch CREATININE, [place]) CBC WITH DIFFERENTIAL 2019-12-09 10:55:00 Kelly Mittal [facility] ACTIVATED PARTIAL THRMPLAS 2019-12-09 10:55:00 Kelly Mittal [facility] BALAJI [facility] POCT GLUCOSE (AUTOMATED) 2019-12-09 00:20:00 Kelly Mittal [facility] POCT GLUCOSE (AUTOMATED) 2019-12-08 20:54:00 Donald [facility] ACTIVATED PARTIAL THRMPLAS 2019-12-08 18:56:00 Migel Vick [facility] POCT GLUCOSE (AUTOMATED) 2019-12-08 16:42:00 Donald Kelly Duran [facility] POCT GLUCOSE (AUTOMATED) 2019-12-08 12:16:00 Kelly Mittal Renee [facility] CBC WITH DIFFERENTIAL 2019-12-08 06:36[facility] 2019-12-08 06:36:00 Kelly Mittal [facility] POCT GLUCOSE (AUTOMATED) 2019-12-08 00:53:00 Donald Rejiewelina Renee [facility] ACTIVATED PARTIAL THRMPLAS 2019-12-07 21:53:00 Kelly Mittal [facility] POCT GLUCOSE (AUTOMATED) 2019-12-07 21:43:00 Kelly Mittal Renee [facility] URINE CULTURE 2019-12-07 18:37:00 Migel Vick [facility] POCT GLUCOSE (AUTOMATED) 2019-12-07 16:46:00 Donald Rejiewelina Renee [facility] POCT GLUCOSE (AUTOMATED) 2019-12-07 13:15:00 Donald Rejiewelina [facility] GLYCOSYLATED HEMOGLOBIN 2019-12-07 10:56:00 Donald [facility] (A1C) [facility] ACTIVATED PARTIAL THRMPLAS 2019-12-07 10:56:00 Kelly Mittal [facility] PROTHROMBIN TIME / INR 2019-12-07 03:44:00 Jesse Gee [facility] ACTIVATED PARTIAL THRMPLAS 2019-12-07 03:44:00 Jesse Gee [facility] LAB ONLY CORONAVIRUS 2019-12-07 03:08:00 Everton Scott [facility] COVID-19 PCR [facility] CT CHEST PULMONARY 2019-12-07 03:03:46 Everton Scott [facility] ANGIOGRAM Medical Branch URINALYSIS 2019-12-07 02:34:00 Everton Scott [facility] XR CHEST 2 VW 2019-12-07 02:05:16 Everton Scott [facility] EKG-12 LEAD 2019-12-07 01:50:52 Jesse Gee [facility] LIPASE 2019-12-07 01:49:00 Everton Scott [facility] TROPONIN I 2019-12-07 01:49:00 Everton Scott [facility] HEPATIC FUNCTION PANEL 2019-12-07 01:49:00 Everton Scott [facility] ([id number]) (ALB,T.PRO,BILI Medical Branch T,BU/BC,ALT,AST,ALK PHOS) BASIC METABOLIC PANEL (NA, 2019-12-07 01:49:00 Everton Scott [facility] K, CL, CO2, GLUCOSE, BUN, Medica l Branch CREATININE, CA) CBC WITH DIFFERENTIAL 2019-12-07 01:49:00 Everton Scott [facility] ADC,CLC OR LCC ONLY - 2019-12-07 01:49:00 Everton Scott [facility] INFLUENZA A & B DIRECT Medical B ranch ANTIGEN EKG-12 LEAD 2019-12-07 01:43:35 Everton Scott [facility] HOSPITAL ADMISSION MISC - 2019-12-06 05:01:00 Doctor Ger, [employer] [facility] [place] MEDICARE PATIENTS RIGHTS [facility] [place] IMPORTANT MESSAGE XR CHEST 2 VW 2019-11-15 00:28:12 Enrique Avery [facility] ADC,CLC OR LCC ONLY - 2019-11-14 23:56:00 Enrique Avery [facility] INFLUENZA A & B DIRECT Medical B ranch ANTIGEN NOTICE OF PRIVACY 2019-11-14 23:36:55 Doctor Ger, [facility] PRACTICES [place] [facility] CONSENT/REFUSAL FOR 2019-11-14 23:30:43 Doctor Ger [facility] DIAGNOSIS AND TREATMENT [place] [facility] AUTHORIZATION FOR RELEASE 2019-11-12 06:01:00 Doctor Ger, [facility] Name Medical Branch POCT FLU A AND B 2019-11-09 01:11:00 Jeffrey Ko [facility] (MOLECULAR) [facility] THYROID STIMULATING 2019-10-30 16:31:00 Kiana Fraser [facility] HORMONE [facility] Branch MICROALBUMIN URINE 2019-10-30 16:31:00 Kiana Fraser [facility] COMP. METABOLIC PANEL 2019-10-30 16:31:00 [id number] LIPID PANEL (81975)(TOTAL 2019-10-30 16:31:00 Kiana Fraser [facility] CHOLESTEROL, [facility] TRIGLYCERIDES, HDL) CBC WITH DIFFERENTIAL 2019-10-30 16:31:00 [facility] GLYCOS[facility]OGLOBIN 2019-10-30 16:31:00 Kiana Fraser [facility] (A1C) [facility] DISCLOSURE AND CONSENT, 2019-06-05 05:01:00 Doctor Ger, [facility] MEDICAL AND SURGICAL [place] PROCEDURES XR SPINE THORACIC 3 VW 2019-06-03 00:45:31 Selma Staley [facility] XR LUMBAR SPINE 3 VW 2019-06-03 00:45:22 Selma Staley [facility] EXTERNAL PROVIDER RECORDS 2019-05-25 05:01:00 Doctor Ger, [facility] [place] [facility] PNEUMOCOCCAL VACCINE, 2019-04-25 19:00:39 Kiana Fraser [facility] 23-VALENT (PNEUMOVAX) Medical Br anch NO SHOW OR MISSED 2019-04-25 18:05:48 Doctor Ger [facility] APPOINTMENT POLICY [place] [facility] ACKNOWLEDGEMENT INSURANCE CORRESPONDENCE 2019-04-16 05:01:00 Doctor Ger [facility] [place] Encounters Start End Encounter Admission Attending Care Care Encounter Source Date/Time Date/Time Type Type Clinicians Facility Department ID 2021-07-17 Emergency [facility] [id number] [facility] [id number] Univers 11:14[facility] 2021-07-15 Emergency [facility] [id number] Univers 18:08:36 ity of [facility] 2021-07-14 Outpatient R JACOB [facility] GIE [id number] Univers 17:19:04 CRYSTAL ity of [facility] 2021-07-14 Emergency [facility] [id number] Univers 15:25:54 ity of [facility] 2021-07-14 Emergency [facility] [id number] Univers 11:46:32 ity [facility] 2021-05-04 2021-05-04 [facility] 1.2.840.114 [id number] Univers 00:00:00 00:00:00 Wondiful A [place] 350.1.13.10 [place] Profess[place] [phone] [address] Building 2021-04-27 2021-04-27 Orders Doctor MARTHA 1..840.114 [id number] Univers 00:00:00 00:00:00 Only Unassigned, MELIZA 350.1.13.10 [facility] 4.2.7.2.686 [place] as [phone] [address] 2021-03-14 2021-03-14 [facility] [id number] -[id number] Univers 14:40:00 14:40:00 LUIS [id number] andrewy o [facility] 2021-03-14 2021-03-14 [facility] [id number] Univers 14:40:00 14:40:00 LUIS moralesy o [facility] 2021-03-08 2021-03-08 Lending Manager Lab, Adc Fam Pob I [facility] 1.2. 840.114 [id number] Univers 15:45:57 16:05:57 Visit Kiana Fraser 350.1.13.1 0 ity of [place] 4.2.7.2.686 [place] as Professio [phone] [address] Office Building One 2021-03-08 2021-03-[address] [facility] 1.2.840.114 [id number] Univers 14:56:34 15:26:34 Visit Edward Bhatia 350.1.13.10 i ty of [place] 4.2.7.2.686 [place] as Professio [phone] [address] One 2021-03-08 2021-03-08 Outpatient R IRA [facility] [id number]-20 Univers 15:00:00 15:00:00 EDWARD [id number] ity o f [facility] 2021-03-08 2021-03-08 Outpatient R IRA [facility] [id number] Univers 15:00:00 15:00:00 EDWARD moralesy o f [facility] 2021-03-07 2021-03-07 Orders Doctor MARTHA 1.2.840.114 [id number] Univers 00:00:00 00:00:00 Only Unassigned, MELIZA 350.1.13.10 ity of [place] [facility] 4.2.7.2.686 Edward as [phone] [address] 2021-03-05 2021-03-05 [facility] 1.2.840.114 [id number] Univers 00:00:00 00:00:00 [facility] Health 350.1.13.10 it y of [place] 4.2.7.2.686 Edward as Professio [phone] [address] One 2021-03-05 2021-03-05 [facility] 1.2.840.114 [id number] Univers 00:00:00 00:00:00 Wondiful A [place] 350.1.13.10 [place] Profess[place] [phone] [address] 2021-02-22 2021-02-22 [facility] 1.2.840.114 [id number] Univers 00:00:00 00:00:00 Wondiful A Health 350.1.13.10 ity of [place] 4.2.7.2.686 Edward as Professio [phone] [address] One 2021-02-21 2021-02-21 Outpatient MHSE EVERETT 7500 MH 10:04:00 10:04:00 [facility] 2021-02-09 2021-02-09 Orders Doctor MARTHA 1.2.840.114 [id number] Univers 00:00:00 00:00:00 Only Unassigned, MELIZA 350.1.13.10 ity of [place] [facility] 4.2.7.2.686 Edward as [phone] [address] 2021-02-07 2021-02-[address] [facility] 1.2.840.114 [id number] Univers 15:40:09 15:55:09 Visit [facility] 350.1.13.10 it y of [place] 4.2.7.2.686 [place] as Professio [phone] [address] Office [facility] One 2021-02-07 2021-02-07 Outpatient R SUNITA [facility] [id number] Univers 15:45:00 15:45:00 OMID y [facility] 2021-02-07 2021-02-07 [facility] [id number] Univers 13:00:00 13:00:00 LUIS [id number] ity o f [facility] 2021-02-07 2021-02-[address] [facility] 1.2.840.114 [id number] Univers 00:00:00 00:00:00 Management Wonfarrukh Patino [facility] 350.1.13.10 ity of [place] 4.2.7.2.686 [place] as Professio [phone] [address] Office [facility] One 2021-02-04 2021-02-04 Urgent Provider, [facility] 1.2.840.114 [id number] Univers 16:53:21 17:45:02 Care Martha Horton [facility] 350.1.13.10 ity of [place] 4.2.7.2.686 Edward as Professio [phone] [address] One 2021-02-04 2021-02-04 Outpatient R [facility] [id number] Univers 17:00:00 17:00:00 [id number] ity [facility] 2021-02-04 2021-02-04 Outpatient R SOL [facility] [id number] Univers 17:00:00 17:00:00 MARTHA ity [facility] 2021-01-26 2021-01-26 Outpatient R [facility] [id number] Univers 09:40:00 09:40:00 [id number] ity [facility] 2021-01-26 2021-01-26 Outpatient R [facility] [id number] Univers 09:40:00 09:40:00 ity [facility] 2021-01-26 2021-01-26 Lending Manager Lab, Adc Fam Pob I [facility] 1.2. 840.114 [id number] Univers 08:47:10 09:15:12 Visit Ronal Fraserkirstenkyle A Health 350.1.13.1 0 ity of [place] 4.2.7.2.686 [place] as Professio [phone] [address] Office [facility] 2021-01-25 2021-01-[address] [facility] 1.2.840.114 [id number] Univers 14:45:18 15:28:27 Visit Wondiful A Health 350.1.13.10 ity of [place] 4.2.7.2.686 [place] as Professio [phone] [address] Office [facility] 2021-01-25 2021-01-25 Outpatient R EVELIO [facility] [id number]-20 Univers 15:00:00 15:00:00 WONDIFUL [id number] ity o f [facility] 2021-01-25 2021-01-25 Outpatient R EVELIO, [facility] [id number] Univers 15:00:00 15:00:00 WONDIFUL ity o f [facility] 2021-01-19 2021-01-19 Outpatient R SAKINA MILLAN [facility] [id number] Univers 14:00:00 14:00:00 SAKINA MILLAN 5 05 ity [facility] 2021-01-19 2021-01-19 Outpatient R MEAGAN MILLANCTNamrata [facility] [id number] Univers 14:00:00 14:00:00 [facility] 2021-01-19 2021-01-19 [facility] 1.2.840.114 [id number] Univers 00:00:00 00:00:00 Wondiful [place] 350.1.13.10 [place] [phone] [address] 2021-01-04 2021-01-04 Outpatient R EVELIO [facility] [id number] Univers 16:15:00 16:15:00 WONDIFUL [id number] itewelina o [facility] 2020-12-07 2020-12-07 Outpatient [facility] [id number] Univers 10:15:00 10:15:00 SHEEBA [id number] vito o [facility] 2020-12-07 2020-12-07 Outpatient [facility] [id number] Univers 10:15:00 10:15:00 SHEEBA andrewewelina o [facility] 2020-12-01 2020-12-01 [facility] 1.2.840.114 [id number] Univers 00:00:00 00:00:00 Wondiful A [facility] 350.1.13.10 ity of [place] 4.2.7.2.686 [place] as Professio [phone] [address] Office Building One 2020-11-17 2020-11-17 Outpatient R SAKINA MILLAN [facility] [id number] Univers 14:30:00 14:30:00 SAKINA MILLAN [id number] [facility] 2020-11-17 2020-11-17 Outpatient R MEAGAN MILLANCTNamrata [facility] [id number] Univers 14:30:00 14:30:00 SAKINA MILLAN itewelina [facility] 2020-11-14 2020-11-14 Emergency [facility] 1.2.233.536 [id number] Univers 12:38:00 15:59:00 Chad [place] 350.1.13.10 i [place] [phone] [facility] [address] [place] 2020-11-14 2020-11-14 Orders Doctor MARTHA 1.2.840.114 [id number] Univers 00:00:00 00:00:00 Only Unassigned, MELIZA 350.1.13.10 ity of [place] [facility] 4.2.7.2.686 Edward as [phone] [facility] [address] [place] 2020-11-09 2020-11-09 Office [facility] 1.2.840.114 [id number] Univers 10:21:15 11:08:18 Visit Sheebabhavna Medina 350.1.13.10 [place] [phone] Nj dical nal 205 [facility] 2020-11-09 2020-11-09 Outpatient [facility] [id number]-20 Univers 10:15:00 10:15:00 SHEEBA [id number] vito contreras [facility] 2020-11-09 2020-11-09 Outpatient R [facility] [id number] Univers 10:15:00 10:15:00 SHEEBA contreras [facility] 2020-10-22 2020-10-22 [facility] 1.2.840.114 [id number] Univers 00:00:00 00:00:00 Wondiful A [facility] 350.1.13.10 ity of [place] 4.2.7.2.686 Edward as Professio [phone] Nj dical nal [address] [place] Office Building One 2020-10-13 2020-10-13 [facility] 1.2.842.726 [id number] Univers 14:30:00 15:00:00 Visit Sakina Medina 350.1.13.10 [place] [phone] Nj dical nal 085 [facility] 2020-10-13 2020-10-13 Outpatient R SAKINA MILLAN [facility] [id number] Univers 14:30:00 14:30:00 MONTY SAKINA [id number] ity [facility] 2020-10-13 2020-10-13 Outpatient R ELSAMEAGAN GAXIOLACTNamrata [facility] [id number] Univers 14:30:00 14:30:00 ELSAMEAGAN GAXIOLAERENDIRA [facility] 2020-10-09 2020-10-[address] [facility] 1.2.840.114 [id number] Univers 00:00:00 00:00:00 Outreach Henry PRIMARY 350.1.13.10 i ty of [facility] [place].2.7.2.[place] [phone] Nj dical [address] [place] 2020-10-08 2020-10-08 Orders Doctor MARTHA 1.2.840.114 [id number] Univers 00:00:00 00:00:00 Only Unassigned, MELIZA 350.1.13.10 ity of [place] [facility] 4.2.7.2.686 Edward as [phone] [facility] 00[address] [place] 2020-10-06 2020-10-06 Orders Doctor MARTHA 1.2.840.114 [id number] Univers 00:00:00 00:00:00 Only Unassigned, MELIZA 350.1.13.10 ity of [place] [facility] 4.2.7.2.686 Edward as [phone] [address] 2020-10-05 2020-10-05 Outpatient R [facility] [id number] Univers 14:00:00 14:00:00 [id number] ity [facility] 2020-10-05 2020-10-05 Outpatient R ROSAS [facility] [id number] Univers 14:00:00 14:00:00 SENDIL [facility] 2020-10-05 2020-10-05 Orders Doctor MARTHA Garcia.2.840.114 [id number] Univers 00:00:00 00:00:00 Only Unassigned, MELIZA 350.1.13.10 ity of [place] [facility] 4.2.7.2.686 Edward as [phone] [address] 2020-10-05 2020-10-05 Telephone [facility] 1.2.840.114 [id number] [facility] 00:00:00 00:00:00 Wondiful A Health 350.1.13.10 ity of [place] 4.2.7.2.686 Edward as Professio [phone] [address] 2020-09-28 2020-09-28 Office [facility] 1.2.840.114 [id number] Univers 09:23:42 10:43:16 Visit Sheeba Medina 350.1.13.10 [place] [phone] [address] 2020-09-28 2020-09-28 Outpatient R [facility] [id number]-20 Univers 09:15:00 09:15:00 SHEEBA [id number] vito cosme [facility] 2020-09-28 2020-09-28 Outpatient R [facility] [id number] [facility] 09:15:00 09:15:00 SHEEBA andrewewelina ba [facility] 2020-09-28 2020-09-28 Tele[facility] 1.2.840.114 [id number] Univers 00:00:00 00:00:00 Wondiful A Health 350.1.13.10 ity of [place] 4.2.7.2.686 Edward as Professio [phone] [address] 2020-09-21 2020-09-21 Lending Manager Lab, Adc Fam Pob I [facility] 1.2. 840.114 [id number] Univers 13:34:10 13:54:10 Visit EvelioKiana A Health 350.1.13.1 0 ity of [place] 4.2.7.2.686 [place] as Professio [phone] [address] 2020-09-21 2020-09-21 Office [facility] 1.2.840.114 [id number] Univers 12:43:33 13:35:18 Visit Wondiful A Health 350.1.13.10 ity of [place] 4.2.7.2.686 Edward as Professio [phone] [address] Office Building One 2020-09-21 2020-09-21 Outpatient R EVELIO [facility] [id number]-20 Univers 13:00:00 13:00:00 WONDIFUL [id number] ity o f [facility] 2020-09-21 2020-09-21 Outpatient R EVELIO [facility] [id number] Univers 13:00:00 13:00:00 WONDIFUL ity o f [facility] 2020-09-15 2020-09-15 Outpatient R EVELIO [facility] [id number] Univers 15:00:00 15:00:00 WONDIFUL [id number] ity o f [facility] 2020-09-06 2020-09-06 [facility] 1.2.840.114 [id number] Univers 00:00:00 00:00:00 Wondiful A [place] 350.1.13.10 [place] [phone] [address] 2020-09-01 2020-09-01 Outpatient R LAKSHMI, [facility] [id number] Univers 13:30:00 13:30:00 TITUS [id number] ity [facility] 2020-09-01 2020-09-01 [facility] [id number] Univers 13:30:00 13:30:00 TITUS ity [facility] 2020-09-01 2020-09-01 Jose [facility] 1.2.840.114 [id number] Univers 00:00:00 00:00:00 Management Wondiful A Health 350.1.13.10 ity of [place] 4.2.7.2.686 Ewdard as Professio [phone] [address] 2020-08-31 2020-08-31 [facility]ang [facility] 1.2.840.114 [id number] Univers 00:00:00 00:00:00 Wondiful A Health 350.1.13.10 ity of [place] 4.2.7.2.686 Edward as Professio [phone] Nj dical nal [address] Building One 2020-08-30 2020-08-30 Emergency Lona Kelley [facility] 1.2.840.114 [id number] Univers 18:51:00 23:05:00 Shahla [place] 350.1.13.10 i ty [place].2.[place] [phone] [facility] [address] [place] 2020-08-30 2020-08-30 [facility] 1.2.840.114 [id number] Univers 00:00:00 00:00:00 Wondiful A Health 350.1.13.10 ity of [place] 4.2.7.2.686 Edward as Professio [phone] Nj dical nal [address] [place] Office Building One 2020-08-26 2020-08-26 [facility] 1.2.840.114 [id number] Univers 00:00:00 00:00:00 Management Wondiful A Health 350.1.13.10 ity of [place] 4.2.7.2.686 Edward as Professio [phone] [address] Office [facility] 2020-08-25 2020-08-25 [facility] 1.2.059.295 [id number] Univers 13:02:50 13:10:00 Encounter Wondiful A [place] 350.1.13.10 ity [place].2.[place] [phone] [facility] 8[address] [place] 2020-08-25 2020-08-25 [facility] 1.2.857.183 [id number] Univers 12:47:30 13:01:00 Encounter Wondiful A [place] 350.1.13.10 ity of [place] 4[place]2.7.2.[place] [phone] [facility] [address] [place] 2020-08-25 2020-08-25 Outpatient [facility] [id number]-20 Univers 13:00:00 13:00:00 WONDIFUL [id number] ity o f [facility] 2020-08-25 2020-08-25 [facility] [id number] Univers 00:00:00 00:00:00 WONDIFUL ity o f [facility] 2020-08-25 2020-08-[address] [facility] 1.2.840.114 [id number] Univers 00:00:00 00:00:00 Luis [place] 350.1.13.10 [place]2.[place].2.[place] [phone] Nj dical nal 059 [facility] 2020-08-25 2020-08-25 Case [facility] 1.2.840.114 [id number] Univers 00:00:00 00:00:00 Management Wondiful A Health 350.1.13.10 ity of [place] 4.2.7.2.686 Edward as Professio [phone] Nj dical nal 044 [facility] 2020-08-24 2020-08-24 Lending Manager Lab, Adc Fam Pob I [facility] 1.2. 840.114 [id number] Univers 10:22:51 10:42:51 Visit Ronal Fraserkirstenkyle A Health 350.1.13.1 0 ity of [place] 4.2.7.2.686 Edward as Professio [phone] Nj dicwv nal 044 [facility] 2020-08-24 2020-08-24 Outpatient R [facility] [id number] Univers 10:20:00 10:20:00 [id number] ity of [facility] 2020-08-24 2020-08-24 Outpatient R EVELIO [facility] [id number] Univers 10:20:00 10:20:00 WONDIFUL ity o f [facility] 2020-08-23 2020-08-[address] [facility] 1.2.840.114 [id number] Univers 09:39:39 17:20:11 Visit Wondiful A Health 350.1.13.10 ity of [place] 4.2.7.2.686 Edward as Professio [phone] Nj dicwv nal 044 [facility] 2020-08-23 2020-08-23 Outpatient EVELIO [facility] [id number]-20 Univers 16:15:00 16:15:00 WONDIFUL [id number] ity o f [facility] 2020-08-23 2020-08-23 Outpatient R EVELIO [facility] [id number] Univers 16:15:00 16:15:00 WONDIFUL ity o f [facility] 2020-08-16 2020-08-[address] [facility] 1.2.840.114 [id number] Univers 00:00:00 00:00:00 Wondiful A Health 350.1.13.10 ity of [place] 4.2.7.2.686 Edward as Professio [phone] [facility] 044 [facility] 2020-08-13 2020-08-13 [facility] 1.2.840.114 [id number] Univers 00:00:00 00:00:00 Wondiful A Health 350.1.13.10 ity of [place] 4.2.7.2.686 Edward as Professio [phone] [facility] 044 [facility] 2020-08-11 2020-08-[address] [facility] 1.2.297.503 [id number] Univers 15:12:55 15:42:55 Visit Sakina Collins [place] 350.1.13.10 it[place].2.[place] [phone] [facility] 085 [facility] 2020-08-11 2020-08-11 Outpatient R SAKINA MILLAN [facility] [id number] Univers 15:30:00 15:30:00 SAKINA MILLAN 2010 ity of [facility] 2020-08-11 2020-08-11 Outpatient R SAKINA MILLAN [facility] [id number] Univers 15:30:00 15:30:00 SAKINA MILLAN ity of [facility] 2020-08-11 2020-08-11 Orders Doctor THOMAS 1.2.840.114 [id number] Univers 00:00:00 00:00:00 Only Unassigned, MELIZA 350.1.13.10 ity of [place] [facility] 4.2.7.2.686 Edward as [phone] [address] 2020-08-09 2020-08-09 Office Vidal, [facility] 1.2.840.114 [id number] Univers 14:34:46 15:13:12 Visit Luis Medina 350.1.13.10 it[place].2.686 [place] [facility] [phone] Nj dical nal 059 [facility] 2020-08-09 2020-08-09 Outpatient R VIDAL, [facility] [id number] Univers 14:40:00 14:40:00 BABITALORNA [id number] ity o f [facility] 2020-08-09 2020-08-09 Outpatient R VIDAL, [facility] [id number] Univers 14:40:00 14:40:00 LUIS ity o f [facility] 2020-07-17 2020-07-17 Outpatient [facility] [id number] Univers 20:00:00 20:00:00 [id number] ity [facility] 2020-07-17 2020-07-17 Outpatient R SAKINA MILLAN [facility] [id number] Univers 20:00:00 20:00:00 SAKINA MILLAN ity [facility] 2020-07-17 2020-07-17 Orders Doctor MARTHA [id number] Univers 00:00:00 00:00:00 Only Unassigned, MELIZA [id number] ity [place] [facility] [id number] Edward as [phone] [address] 2020-07-16 2020-07-16 Lending Manager 1, [facility] Sleep Lab Bed [facility] 1. [id number] Univers 13:58:59 16:28:59 Visit Sakina Millan [id number]. 10 [place] [id number] [place] [phone] [facility] [address] 2020-07-15 2020-07-15 Laboratory Only, Adc Test [facility] 1.2.840. 114 [id number] Univers 11:55:53 12:10:53 Only Kevin Greene 350.1.13.10 [place]y of [place] [phone] [address] 2020-07-15 2020-07-15 Outpatient [facility] [id number] -[id number] Univers 11:45:00 11:45:00 [id number] ity of [facility] 2020-07-15 2020-07-15 Outpatient R [facility] [id number] Univers 11:45:00 11:45:00 ity of [facility] 2020-07-09 2020-07-09 Office [facility] 1.2.840.114 [id number] Univers 11:44:34 12:19:20 Visit Luis [place] 350.1.13.10 [place] [address] [phone] [facility] nal 059 [facility] 2020-07-09 2020-07-09 Outpatient R [facility] [id number] -[id number] Univers 11:40:00 11:40:00 LUIS [id number] ity o f [facility] 2020-07-09 2020-07-09 Outpatient R [facility] [id number] Univers 11:40:00 11:40:00 LUIS moralesy o f [facility] 2020-07-09 2020-07-09 [facility] 1.2.840.114 [id number] Univers 00:00:00 00:00:00 Wondiful A [place] 350.1.13.10 [place] [phone] Nj dical nal 044 [facility] 2020-07-07 2020-07-07 [facility] 1.2.638.898 [id number] Univers 14:17:59 14:47:59 Visit Sakina Medina 350.1.13.10 [place] [phone] Nj dical nal 085 [facility] 2020-07-07 2020-07-07 Outpatient R SAKINA MILLAN [facility] [id number] Univers 14:30:00 14:30:00 SAKINA MILLAN 2010 [id number] ity of [facility] 2020-07-07 2020-07-07 Outpatient R SAKINA MILLAN [facility] [id number] Univers 14:30:00 14:30:00 SAKINA MILLAN ity of [facility] 2020-07-06 2020-07-[address] [facility] 1.2.840.114 [id number] Univers 00:00:00 00:00:00 Wondiful A Health 350.1.13.10 ity of [place] 4.2.7.2.686 [place] Professio [phone] [address] Office [facility] 2020-06-29 2020-06-[address] [facility] 1.2.840.114 [id number] Univers 00:00:00 00:00:00 Wondiful A Health 350.1.13.10 ity of [place] 4.2.7.2.686 [place] Professio [phone] [address] Office [facility] 2020-06-28 2020-06-28 [facility] 1.2.840.114 [id number] Univers 00:00:00 00:00:00 Management Wondiful A Health 350.1.13.10 ity of [place] 4.2.7.2.686 [place] Professio [phone] [address] 2020-06-21 2020-06-21 Lending Manager Lab, Adc Fam Pob I [facility] 1.. 840.114 [id number] Univers 15:51:13 16:01:13 Visit Kiana [facility] 350.1.13.1 0 ity of [place] 4.2.7.2.686 [place] Professio [phone] [address] Office [facility] 2020-06-21 2020-06-[address] 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 1.2 .840.114 [id number] Univers 13:00:28 13:15:28 Visit Sakina Millan 350.1.13. 10 ity [facility] 4.2.7.2.686 [facility] [phone] [address] 2020-06-17 2020-06-17 Outpatient R [facility] [id number] -[id number] Univers 13:00:00 13:00:00 ity [facility] 2020-06-17 2020-06-17 Outpatient R [facility] [id number] Univers 13:00:00 13:00:00 ity [facility] 2020-06-15 2020-06-15 Outpatient R [facility] [id number] Univers 14:00:00 14:00:00 [id number] ity [facility] 2020-06-15 2020-06-15 Outpatient R SAKINA MILLAN [facility] [id number] Univers 14:00:00 14:00:00 SAKINA MILLAN ity [facility] 2020-06-11 2020-06-11 Outpatient R [facility] [id number] -[id number] Univers 15:00:00 15:00:00 [id number] ity [facility] 2020-06-11 2020-06-11 Outpatient R [facility] [id number] Univers 15:00:00 15:00:00 ity [facility] 2020-06-11 2020-06-11 Laboratory Only, Adc Test [facility] 1.2.840. 114 [id number] Univers 14:10:00 14:25:00 Only Kevin Greene 350.1.13.10 ity of [place] 4.2.7.2.686 [facility] [phone] [facility] [address] [place] 2020-06-11 2020-06-11 Orders Doctor MARTHA 1.2.840.114 [id number] Univers 00:00:00 00:00:00 Only Unassigned, MELIZA 350.1.13.10 ity of [place] [facility] 4.2.7.2.686 Edward as [phone] [facility] [address] [place] 2020-06-09 2020-06-09 Office [facility] 1.2.840.114 [id number] Univers 14:14:37 14:57:58 Visit Luis Medina 350.1.13.10 [place] [phone] Nj dical nal 059 [facility] 2020-06-09 2020-06-09 [facility] [id number] -[id number] Univers 14:20:00 14:20:00 LUIS [id number] ity o [facility] 2020-06-09 2020-06-09 [facility] [id number] Univers 14:20:00 14:20:00 QIAVIBHAJUN ity o [facility] 2020-06-09 2020-06-09 [facility] 1.2.840.114 [id number] Univers 00:00:00 00:00:00 Wondiful A Health 350.1.13.10 ity of [place] 4.2.7.2.686 [place] Professio [phone] Nj nikkoal nal [address] [place] Office [facility] 2020-06-08 2020-06-08 Outpatient R EVELIO [facility] [id number] N-20 Univers 11:45:00 11:45:00 WONDIFUL [id number] ity o f [facility] 2020-06-08 2020-06-08 [facility] [id number] Univers 11:45:00 11:45:00 WONDIFUL ity o f [facility] 2020-06-07 2020-06-07 [facility] 1.2.840.114 [id number] Univers 10:11:55 10:51:44 Visit Wondiful A Health 350.1.13.10 ity of [place] 4.2.7.2.686 [place] Professio [phone] [address] 2020-06-07 2020-06-07 Outpatient R EVELIO [facility] [id number]-20 Univers 10:00:00 10:00:00 WONDIFUL [id number] ity o f [facility] 2020-06-07 2020-06-07 [facility] [id number] Univers 10:00:00 10:00:00 WONDIFUL ity o f [facility] 2020-06-07 2020-06-07 [facility] 1.2.840.114 [id number] Univers 00:00:00 00:00:00 Wondiful A Health 350.1.13.10 ity of [place] 4.2.7.2.686 [place] Professio [phone] [address] 2020-06-03 2020-06-03 Emergency [facility] 1.2.840.114 [id number] Univers 15:17:00 18:33:00 Ko B [place] 350.1.13.10 i ty of [place] [phone] [address] 2020-06-03 2020-06-03 [facility] 1.2.840.114 [id number] Univers 00:00:00 00:00:00 Wondiful A Health 350.1.13.10 ity of [place] 4.2.7.2.686 [place] Professio [phone] [address] 2020-06-01 2020-06-01 [facility] 1.2.840.114 [id number] Univers 00:00:00 00:00:00 Wondiful A [place] 350.1.13.10 [place] [phone] [address] 2020-05-10 2020-05-27 [facility] 1.2.840.114 [id number] Univers 13:59:31 17:39:50 Visit Wondiful A [place] 350.1.13.10 it[place] of [place] [phone] [facility] 044 [facility] 2020-05-23 2020-05-23 [facility]ill [facility] 1.2.840.114 [id number] Univers 00:00:00 00:00:00 Wondiful A Health 350.1.13.10 ity of [place] 4.2.7.2.686 [place] Professio [phone] [address] 2020-05-12 2020-05-12 Outpatient [facility] [id number] -[id number] Univers 11:00:00 11:00:00 [id number] ity of [facility] 2020-05-10 2020-05-10 Lending Manager 2, Adc Lab [facility] 1..840.114 [id number] Univers 15:20:43 15:35:43 Visit Evelio Kiana A [place] 350.1.13. 10 [place] [phone] [facility] 353 [facility] 2020-05-10 2020-05-10 Outpatient R EVELIO [facility] [id number]-20 Univers 15:30:00 15:30:00 WONDIFUL [id number] ity o f [facility] 2020-05-10 2020-05-10 Outpatient R EVELIO [facility] [id number] Univers 15:30:00 15:30:00 WONDIFUL ity o f [facility] 2020-04-16 2020-04-16 [facility] 1.2.840.114 [id number] Univers 00:00:00 00:00:00 Wondiful A Health 350.1.13.10 ity of [place] 4.2.7.2.686 [place] Professio [phone] [address] 2020-04-13 2020-04-[address] [facility] 1.2.840.114 [id number] Univers 00:00:00 00:00:00 Wondiful A [place] 350.1.13.10 [place] [phone] Nj dical nal 044 [facility] 2020-04-13 2020-04-[address] [facility] 1.2.840.114 [id number] Univers 00:00:00 00:00:00 Wondiful A Health 350.1.13.10 ity of [place] 4.2.7.2.686 [place] [address] [phone] [facility] nal [address] [place] [address] Building One 2020-04-12 2020-04-12 Orders Doctor MARTHA 1.2.840.114 [id number] Univers 00:00:00 00:00:00 Only Unassigned, MELIZA 350.1.13.10 ity of [place] [facility] 4.2.7.2.686 [place] as [phone] [facility] [address] [place] 2020-02-26 2020-02-26 Office [facility] 1.2.840.114 [id number] Univers 14:19:17 15:14:21 Visit Bhavin [place] 350.1.13.10 i [place] [phone] [facility] nal 085 [facility] 2020-02-26 2020-02-26 Outpatient R BHAVIN CLAYTON [facility] [id number] Univers 14:20:00 14:20:00 BHAVIN CLAYTON [id number] i ty of [facility] 2020-02-26 2020-02-26 Outpatient R BHAVIN CLAYTON [facility] [id number] Univers 14:20:00 14:20:00 BHAVIN CLAYTON i ty of [facility] 2020-02-23 2020-02-23 Telephone Motility, [facility] 1.2.840.114 [id number] Univers 00:00:00 00:00:00 Endoscopy ICAL 350.1.13.10 ity of [facility] 4.2.7.2.686 [place] as BLDG [phone] [facility] [address] [place] 2020-02-19 2020-02-19 Outpatient R BHAVIN CLAYTON [facility] [id number]-20 Univers 09:40:00 09:40:00 BHAVIN CLAYTON i ty of [facility] 2020-02-16 2020-02-16 Orders Doctor MARTHA 1.2.840.114 [id number] Univers 00:00:00 00:00:00 Only Unassigned, MELIZA 350.1.13.10 ity of [place] [facility] 4.2.7.2.686 [place] as [phone] [address] 2020-01-20 2020-01-20 Refill [facility] 1.2.840.114 [id number] Univers 00:00:00 00:00:00 Wondiful A Health 350.1.13.10 ity of [place] 4.2.7.2.686 [place] Professio [phone] [address] 2020-01-19 2020-01-19 Telephone [facility] 1.2.091.301 [id number] Univers 00:00:00 00:00:00 Qiangjun [place] 350.1.13.10 [place] [phone] [facility] 059 [facility] 2020-01-16 2020-01-16 Telephone [facility] 1.2.840.114 [id number] Univers 00:00:00 00:00:00 Wondiful A Health 350.1.13.10 ity of [place] 4.2.7.2.686 [place] Professio [phone] [address] 2020-01-12 2020-01-12 Telephone [facility] 1.2.840.114 [id number] Univers 00:00:00 00:00:00 Wondiful A [place] 350.1.13.10 [place] [phone] [address] 2020-01-12 2020-01-12 Orders Doctor MARTHA 1.2.840.114 [id number] Univers 00:00:00 00:00:00 Only Unassigned, MELIZA 350.1.13.10 ity of [place] [facility] 4.2.7.2.686 [place] as [phone] [address] 2020-01-05 2020-01-05 Outpatient R EVELIO [facility] [id number]-20 Univers 08:15:00 08:15:00 WONDIFUL [id number] ity o f [facility] 2020-01-05 2020-01-05 Outpatient R EVELIO [facility] [id number] Univers 08:15:00 08:15:00 WONDIFUL ity o f [facility] 2020-01-05 2020-01-05 [facility]medici [facility] 1.2.840.114 [id number] Univers 07:03:47 07:33:47 ne Visit Wondiful A [place] 350.1.13.10 [place] [phone] [address] 2019-12-30 2019-12-30 [facility] 1.2.840.114 [id number] Univers 00:00:00 00:00:00 Wondiful A Health 350.1.13.10 ity of [place] 4.2.7.2.686 [place] as Professio [phone] [address] One 2019-12-23 2019-12-23 [facility]medici [facility] 1.2.840.114 [id number] Univers 07:43:58 15:05:06 ne Visit Wondiful A [place] 350.1.13.10 [place].2.[place] [phone] [address] 2019-12-23 2019-12-23 Outpatient R EVELIO [facility] [id number] N-20 Univers 13:00:00 13:00:00 WONDIFUL ity o f [facility] 2019-12-23 2019-12-23 Outpatient R EVELIO [facility] [id number] Univers 13:00:00 13:00:00 WONDIFUL ity o f [facility] 2019-12-21 2019-12-21 [facility] 1.2.840.114 [id number] Univers 00:00:00 00:00:00 Wondiful A Health 350.1.13.10 ity of [place] 4.2.7.2.686 [place] as Professio [phone] [place] [address] [facility] 2019-12-11 2019-12-11 Transition Bonnie Rios 1.2.840.114 [id number] Univers 00:00:00 00:00:00 of Care Sofia Price 350.1.13.10 [place] [phone] [address] 2019-12-10 2019-12-10 Transition GabrielBonnie hurley 1.2.840.114 [id number] Univers 00:00:00 00:00:00 of Care Sofia Price 350.1.13.10 [place] [phone] [address] 2019-12-10 2019-12-[address] [facility] 1.2.840.114 [id number] Univers 00:00:00 00:00:00 Wondiful A [place] 350.1.13.10 it[place].2.[place] [phone] [address] 2019-12-06 2019-12-09 Hospital Everton Scott [facility] 1.2.840.114 [id number] Univers 20:15:25 19:57:00 Encounter Kelly Mittal 350.1.13.10 ity of [place].2.[place] [phone] [place] [address] [place] 2019-12-09 2019-12-[address] [facility] 1.2.840.114 [id number] Univers 00:00:00 00:00:00 Wondiful A Health 350.1.13.10 ity of [place] 4.2.7.2.686 [place] as Professio [phone] [place] [address] [address] Building One 2019-11-28 2019-11-28 Julian BAUER [facility] [id number] -[id number] Univers 08:30:00 08:30:00 NAFISA [id number] ity of [facility] 2019-11-19 2019-11-19 Telephone Motility, [facility] 1.2.840.114 [id number] Univers 00:00:00 00:00:00 Endoscopy ICAL 350.1.13.10 ity of SCIENCES 4.2.7.2.686 [place] as BLDG [phone] [address] 2019-11-18 2019-11-18 Telephone Motility, [facility] 1.2.840.114 [id number] Univers 00:00:00 00:00:00 Endoscopy ICAL 350.1.13.10 ity of SCIENC[place] 4.2.7.2.686 [place] as BLDG [phone] [address] 2019-11-14 2019-11-14 Emergency Shi, [facility] 1.2.713.989 [id number] Univers 18:32:04 20:53:00 Chad Medina 350.1.13.10 i ty of [place] 4.2.7.2.686 [place] [facility] [phone] [facility] [address] [place] 2019-11-14 2019-11-14 Orders Doctor MARTHA 1.2.840.114 [id number] Univers 00:00:00 00:00:00 Only Unassigned, MELIZA 350.1.13.10 ity of [place] [facility] 4.2.7.2.686 Edward as [phone] [facility] [address] [place] 2019-11-13 2019-11-13 Telephone Motility, [facility] 1.2.840.114 [id number] Univers 00:00:00 00:00:00 Endoscopy ICAL 350.1.13.10 ity of SCIENC[place] 4.2.7.2.686 Edward as [facility] [phone] [facility] [address] [place] 2019-11-12 2019-11-12 Orders Doctor MARTHA 1.2.840.114 [id number] Univers 00:00:00 00:00:00 Only Unassigned, MELIZA 350.1.13.10 ity of [place] [facility] 4.2.7.2.686 Edward as [phone] [address] 2019-11-08 2019-11-08 Urgent Jeffrey Ko [facility] 1.2.840.11 [id number] Univers 18:44:29 18:59:29 Care Unknown, Attending Health 350.1.13.10 ity of Surgical 4.2.7.2.686 [place] as Specialti [phone] Nj schuyler es 370 [facility] 2019-11-06 2019-11-06 Telephone Motility, [facility] 1.2.840.114 [id number] Univers 00:00:00 00:00:00 Endoscopy ICAL 350.1.13.10 ity of [place] 4.2.7.2.686 [place] as BLDG [phone] [address] 2019-11-04 2019-11-04 Telephone Motility, [facility] 1.2.840.114 [id number] Univers 00:00:00 00:00:00 Endoscopy ICAL 350.1.13.10 ity of [place]ENC[place] 4.2.7.2.686 [place] as BLDG [phone] [address] 2019-10-30 2019-10-[address] [facility] 1.2.840.114 [id number] Univers 09:26:55 10:26:49 Visit Wondiful A Health 350.1.13.10 ity of [place] 4.2.7.2.686 Edward as Professio [phone] [facility] [address] [place] Office [facility] 2019-10-30 2019-10-[address] [facility] 1.2.840.114 [id number] Univers 00:00:00 00:00:00 Management Wondiful A Health 350.1.13.10 ity of [place] 4.2.7.2.686 [place] as Professio [phone] [facility] [address] [place] Office [facility] 2019-10-30 2019-10-[address] [facility] 1.2.840.114 [id number] Univers 00:00:00 00:00:00 Wondiful A Health 350.1.13.10 ity of [place] 4.2.7.2.686 Edward as Professio [phone] Nj dicwv nal [address]44 [place] Office [facility] 2019-10-21 2019-10-21 Telephone Motility, [facility] 1.2.840.114 [id number] Univers 00:00:00 00:00:00 Endoscopy ICAL 350.1.13.10 ity of SCIENCES 4.2.7.2.686 Edward as BLDG [phone] [facility] [address] [place] 2019-10-09 2019-10-09 Telephone Motility, [facility] 1.2.840.114 [id number] Univers 00:00:00 00:00:00 Endoscopy ICAL 350.1.13.10 ity of SCIENCES 4.2.7.2.686 [place] as BLDG [phone] [address] 2019-06-06 2019-06-06 Prep For Lakshmi, [facility] 1.2.840.114 [id number] Univers 00:00:00 00:00:00 Surgery Titus Medina 350.1.13.10 [place] [phone] Nj dical nal 204 [facility] 2019-06-05 2019-06-[address] [facility] 1.2.265.829 [id number] Univers 12:56:30 14:21:14 Visit Crystal Medina 350.1.13.10 i ty of [place].2.[place] [phone] Me dical nal 377 [facility] 2019-06-05 2019-06-05 Orders Doctor MARTHA 1.2.840.114 [id number] Univers 00:00:00 00:00:00 Only Unassigned, MELIZA 350.1.13.10 ity of [place] [facility] 4.2.7.2.686 Edward as [phone] [facility] [address] [place] 2019-06-02 2019-06-02 [facility] 1.2.840.114 [id number] Univers 18:45:00 23:59:00 Encounter Selma [facility] 350.1.13.10 ity of Surgical 4.2.7.2.686 [place] as Specialti [phone] Nj dical es 808 [facility] 2019-06-02 2019-06-02 Urgent Selma Staley [facility] 1.2.840.114 [id number] Univers 18:15:15 19:44:45 Care Unknown, Attending Health 350.1.13.10 ity of Surgical 4.2.7.2.686 [place] as Specialti [phone] Nj dical es 370 [facility] 2019-06-02 2019-06-02 Hospital [facility] 1.2.840.114 [id number] Univers 18:40:00 18:44:00 Encounter [facility] 350.1.13.10 ity of Surgical 4.2.7.2.686 [place] as Specialti [phone] Nj dical es 808 [facility] 2019-06-02 2019-06-02 [facility]phone [facility] 1.2.840.114 [id number] Univers 00:00:00 00:00:00 Wondiful A Health 350.1.13.10 ity of [place] 4.2.7.2.686 Edward as Professio [phone] [address] One 2019-05-25 2019-05-25 Orders Doctor MARTHA 1.2.840.114 [id number] Univers 00:00:00 00:00:00 Only Unassigned, MELIZA 350.1.13.10 ity of [place] [facility] 4.2.7.2.686 Edward as [phone] [address] 2019-04-25 2019-04-25 [facility] 1.2.840.114 [id number] Univers 13:05:24 14:13:17 Visit Wondiful A Health 350.1.13.10 ity of [place] 4.2.7.2.686 Edward as Professio [phone] [address] One 2019-04-25 2019-04-25 Orders Doctor THOMAS 1.2.840.114 [id number] Univers 00:00:00 00:00:00 Only Unassigned, MELIZA 350.1.13.10 ity of [place] [facility] 4.2.7.2.686 Edward as [phone] [address] 2019-04-16 2019-04-16 Orders Doctor MARTHA 1.2.840.114 [id number] Univers 00:00:00 00:00:00 Only Unassigned, MELIZA 350.1.13.10 ity of [place] [facility] 4.2.7.2.686 Edward as [phone] [address] Results Test Description Test Time Test Comments Results Result Comments Source IRON PANEL 2021-01-26 22:03:42 Test Item Value Reference Range Interpretation Comme nts IRON (test code = 6622271870) 80 ug/dL 50-160 TIBC (test code = 8554592933) 386 ug/dL 250-410 % FE SAT (test code = 4546407212) 21 % 20-50 Lab Interpretation (test code = 09922-4) Normal [facility]C)2021-01-26 17:18:15 Test Item Value Reference Range Interpretation Comments HGB A1C (test code = 6.0 % 4.0-5.7 H 4548-4) KANU (test code = KANU) Reference RangesNormal: <5.7%Prediabetes: 5.7 - 6.4%Diabetes: > 6.5% Lab Interpretation (test Abnormal code = 51386-9) [facility] [place] [id number] 17:13:28 Test Item Value Reference Range Interpretation Comments FERRITIN (test code = 13.0 ng/mL 11.0-264.0 [id number]) KANU (test code = KANU) Biotin has been reported to cause a negative bias, interpret results relative to patient's use of biotin. Lab Interpretation (test Normal code = 55658-5) [facility] [place] [id number] 17:09:08 Test Item Value Reference Range Interpretation Comments TSH (test code = See_Comment [Automated message] [id number]) The system [employer] generated this result transmitted ref erence range: 0.45 - 4 .70 mIU/L. The refe rence range was not u sed to interpret this result as normal/abnor mal. Lab Interpretation (test Normal code = 37619-5) [facility] [place] [place]OL[facility] ([id number])2021-01-26 16:38:01 Test Item Value Reference Range Interpretation Comments NA (test code = 138 mmol/L 135-145 7652049064) K (test code = 5.2 mmol/L 3.5-5.0 H 8058355859) CL (test code = 103 mmol/L 98-108 1241029281) CO2 TOTAL (test code = 25 mmol/L 23-31 4342349012) AGAP (test code = 2-16 2475377705) BUN (test code = 23 mg/dL 7-23 6880115709) GLUCOSE (test code = 122 mg/dL 70-110 H 8650283593) CREATININE (test code = 1.15 mg/dL 0.50-1.04 H 7668139401) TOTAL BILI (test code = 0.6 mg/dL 0.1-1.7 1389571238) CALCIUM (test code = 9.5 mg/dL 8.6-10.6 9211055926) T PROTEIN (test code = 6.9 g/dL 6.3-8.2 2982174253) ALBUMIN (test code = 4.4 g/dL 3.5-5.0 5686364456) ALK PHOS (test code = 61 U/L 34-122 1183976242) ALTv (test code = 18 U/L 5-35 1742-6) AST(SGOT) (test code = 36 U/L 13-40 9712650889) eGFR (test code = mL/min/1.73m2 9573456144) KANU (test code = KANU) Association of Glomerular Filtration Rate (GFR) and Staging of Kidney Disease* + --+ --+ ------+| GFR (mL/min/1.73 m2) ?| With Kidney Damage ?| ?Without Kidney Damage+ --------+ --------+ +| ?>90 ?| ?Stage one ?| ? Normal ?+ ---+ ---+ -------+| ?60-89 ?| ?Stage two ?| ? Decreased GFR ? + --+ --+ ------+| ?30-59 ?| ?Stage three ?| ? Stage three ? + --+ --+ ------+| ?15-29 ?| ?Stage four ? | ? Stage four ?+ ---+ ---+ -------+| ?<15 (or dialysis) ? ?| ?Stage five ? | ? Stage five ?+ ---+ ---+ -------+ *Each stage assumes the associated GFR level has been in effect for at least three months. ?Stages 1 to 5, with or without kidney disease, indicate chronic kidney disease. Notes: Determination of stages one and two (with eGFR >59mL/min/1.73 m2) requires estimation of kidney damage for at least three months as defined by structural or functional abnormalities of the kidney, manifested by either:Pathological abnormalities or Markers of kidney damage (including abnormalities in the composition of the blood or urine or abnormalities in imaging tests). Lab Interpretation Abnormal (test code = 32591-8) [facility] [place] (14992)(TOTAL CHOLESTEROL, TRIGLYCERIDES, HDL)2021-01-26 16:38:01 Test Item Value Reference Range Interpretation Comments CHOL (test code = 229 mg/dL 120-200 H 1529434785) HDL (test code = 49 mg/dL >50 L 2687090836) HDLC RATIO (test code = See_Comment H [Au tomated message] 1246408539) The system [employer] generated this result transmit cesar reference range : <=4.5. The refe rence range was not u sed to interpret th is result as normal/abnormal . TRIG (test code = 165 mg/dL 30-170 0927879350) LDL CHOL (test code = 147 mg/dL See_Comment [Auto mated message] 99280-4) The system [employer] generated this result transmit cesar reference range : <=160. The refe rence range was not u sed to interpret th is result as normal/abnormal . VLDL (test code = 33 mg/dL 5-60 9004430024) Lab Interpretation (test Abnormal code = 59891-6) [facility] [place]CBC WITHOUT [id number] 15:50:14 Test Item Value Reference Range Interpretation Comments WBC (test code = See_Comment [Automated message] The 6690-2) system which [employer] nerated this result tra nsmitted reference range : 4.30 - 11.10 10*3/?L. The reference range was not used to interpr et this result as normal/abnormal . RBC (test code = See_Comment [Automated message] The 789-8) system which [employer] nerated this result tra nsmitted reference range : 3.93 - 5.25 10*6/?L. T he reference range was not used to interpr et this result as normal/abnormal . HGB (test code = 13.1 g/dL 11.6-15.0 288-7) HCT (test code = 41.0 % 35.7-45.2 4544-3) MCH (test code = 26.3 pg 25.9-32.8 785-6) MCV (test code = 82.2 fL 80.6-95.5 787-2) MCHC (test code = 32.0 g/dL 31.6-35.1 786-4) PLT (test code = See_Comment [Automated message] The 777-3) system which ge nerated this result tra nsmitted reference range : 166 - 358 10*3/?L. Th e reference range was not used to interpr et this result as normal/abnormal . MPV (test code = 10.5 fL 9.5-12.9 93666-0) RDW-CV (test code = 14.6 % 12.0-15.5 788-0) RDW-SD (test code = 43.4 fL 39.0-49.9 51983-1) NRBC x10^3 (test <0.01 See_Comment [Automated message] The code = 2373991013) system [facility] generated this result tra nsmitted reference range : 10*3/?L. The reference r dayana was not used to int erpret this result as normal/abnormal . NRBC/100 WBC (test See_Comment [Automat ed message] The code = 2002569548) system [facility] generated this result tra nsmitted reference range : 0.0 - 10.0 /100 WBCs. The reference range was not used to interpr et this result as normal/abnormal . IPF % (test code = 8056602256) [facility] [place]CT ABDOMEN PELVIS W [id number] 21:14:58 Colonic diverticulosis with sigmoid haustral edema and inflammatorystranding suggestive of uncomplicated diverticulitis. Enlarged leiomyomatous uterus with probable degeneration of fibroids.Distentionof the endometrial cavity greater than expected relative to ageis indeterminate. Further evaluation with dedicated pelvic ultrasound isrecommended on nonemergent outpatient basis. Changes of gastric banding with moderate size hiatal hernia. Hepatomegaly with steatosis. Preliminary Report Dictated by Resident: Fidel Bosch MD., have reviewed this study and agree withthe above report.CT ABDOMEN PELVIS W CONTRAST HISTORY: Diverticulitis suspected TECHNIQUE: Contrast-enhanced spiral CT of the abdomen and pelvis wasperformed with multiplanar reformatted images provided for review. COMPARISON: None FINDINGS: LOWER THORAX: Minimal bandlike atelectasis. No pericardial effusion orcardiomegaly. LIVER: Mildly enlarged measuring 18 cm in craniocaudal dimension withdiffuse hypoattenuation and normal contour. No focal hepatic lesion. GALLBLADDER & BILIARY TREE: The gallbladder is decompressed. Novisualized radiopaque cholelithiasis. PANCREAS: No focal lesion or ductal dilation. SPLEEN: No splenomegaly. ADRENALS: No adrenal nodules. KIDNEYS: Symmetric enhancement. No hydronephrosis, focal lesion or stones. PELVIS/BLADDER: The bladder is decompressed. Enlarged leiomyomatous uteruswith multiple uterine fibroids with calcification and probable necroticdegeneration with the largest probable pedunculated fibroid measuring 5.0cm and 1.6 cm. Moderate distention of the endometrial cavity measuring 2.2cm in AP dimension. GASTROINTESTINAL: Changes of gastric banding. A moderate size hiatal herniais visualized above the level of the gastric band measuring 4.8 cm in APdimension (2:15). Colonic diverticulosis most pronounced in the sigmoidcolon with mucosal enhancement, haustral edema and pericolic inflammatorystranding about a conspicuous diverticula (4:56). PERITONEUM/RETROPERITONEUM: No free air or fluid. VASCULAR: ?Unremarkable. LYMPHATICS: No enlarged lymph nodes by CT size criteria. BONES AND SOFT TISSUES: No concerning bony lesion identified. Tinyumbilical fat-containing hernia. Changes of L5-S1 laminectomy. Moderatespondylotic changes [facility], Radiant Results Inft User - 11/14/2020 3:16 PM CSTCT ABDOMEN PELVIS W CONTRASTHISTORY: Diverticulitis suspected TECHNIQUE: Contrast-enhanced spiral CT of the abdomen and pelvis wasperformed with multiplanar reformatted images provided for review.COMPARISON: NoneFINDINGS:LOWER THORAX: Minimal bandlike atelectasis. No pericardial effusion orcardiomegaly. LIVER: Mildly enlarged measuring 18 cm in craniocaudal dimension withdiffuse hypoattenuation and normal contour. No focal hepatic lesion. GALLBLADDER & BILIARY TREE: The gallbladder is decompressed. Novisualized radiopaque cholelithiasis.PANCREAS: No focal lesion or ductal dilation. SPLEEN: No splenomegaly. ADRENALS: No adrenal nodules. KIDNEYS: Symmetric enhancement. No hydronephrosis, focal lesion or stones. PELVIS/BLADDER: The bladder is decompressed. Enlarged leiomyomatous uteruswith multiple uterine fibroids with calcification and probable necroticdegeneration with the largest probable pedunculated fibroid measuring 5.0cm and 1.6 cm. Moderate distention of the endometrial cavity measuring 2.2cm in AP dimension.GASTROINTESTINAL: Changes of gastric banding. A moderate size hiatal herniais visualized above the level of the gastric band measuring 4.8 cm in APdimension (2:15). Colonic diverticulosis most pronounced in the sigmoidcolon with mucosal enhancement, haustral edema and pericolic inflammatorystranding about a conspicuous diverticula (4:56). PERITONEUM/RETROPERITONEUM: No free air or fluid.VASCULAR: Unremarkable. LYMPHATICS: No enlarged lymph nodes by CT size criteria.BONES AND SOFT TISSUES: No concerning bony lesion identified. Tinyumbilical fat-containing hernia. Changes of L5-S1 laminectomy. Moderatespondylotic changesIMPRESSIONColonic diverticulosis with sigmoid haustral edema and inflammatorystranding suggestive of uncomplicated diverticulitis.Enlarged leiomyomatous uterus with probable degeneration of fibroids.Distention of theendometrial cavity greater than expected relative to ageis indeterminate. Further evaluation with dedicated pelvic ultrasound isrecommended on nonemergent outpatient basis.Changes of gastric banding with moderate size hiatal hernia.Hepatomegaly with steatosis.Preliminary Report Dictated by Resident: Sheeba Judd, Fidel Branch MD., have reviewed this study and agree withthe above report.[facility] AtlantaUrinalysis2021-02-28 20:07:00 Test Item Value Reference Range Interpretation Comments APPEARANCE (test code = Cloudy Clear A 6249905700) COLOR (test code = Shirlene Yellow A 2280536219) PH (test code = 4.8-8.0 2754906033) SP GRAVITY (test code = 1.003-1.030 1703169843) GLU U QUAL (test code = Normal Normal 7757346651) BLOOD (test code = Negative Negative 5283373905) KETONES (test code = Negative Negative 6797663161) PROTEIN (test code = 30 mg/dL Negative A 2887-8) UROBILIN (test code = Normal Normal 7738762187) BILIRUBIN (test code = Negative Negative 9187212577) NITRITE (test code = Negative Negative 2149855876) LEUK ULISES (test code = 75/uL Negative A 2193282246) RBC/HPF (test code = See_Comment H [Autom ated message] 7903688335) The system [employer] generated this result transmitted ref erence range: 0 - 3 HP F. The reference range was not used to int erpret this result as normal/abnormal . WBC/HPF (test code = See_Comment H [Autom ated message] 2003038094) The system [employer] generated this result transmitted ref erence range: 0 - 5 HP F. The reference range was not used to int erpret this result as normal/abnormal . BACTERIA (test code = Moderate Negative A 5151455237) MUCOUS (test code = Moderate Negative LPF A 0891949406) SQ EPITH (test code = HPF 9925975820) Lab Interpretation (test Abnormal code = 71273-7) [facility] AtlantaFlorentinoind[facility] path [facility] cent[facility]inyn [id number] 19:43:00 Test Item Value Reference Range Interpretation Comments TROPONIN I (test 0.002 ng/mL See_Comment [Automated code = 2717236229) message] The system which generated this result transmitted reference range : <=0.034. The reference range was not used to interpret this result as normal/abnormal . KANU (test code = Equal or Less than KANU) 0.034 ng/ml---Normal ?Note: Cardiac troponin begins to rise 3-4 hours after the onset of ischemia. Repeat in 4-6 hours if the sample was drawn within 3-4 hours of the onset of the symptom and found normal. Between 0.035 and 0.120 ng/mL--- Borderline. Questionable myocardial injury or necrosis ? ?Note: Serial measurement may be necessary to confirm or exclude the diagnosis of myocardial injury or necrosis; Clinical correlation (symptoms, EKGs, imaging studies, and others) required; Repeat in 4-6 hours if clinically indicated. ? Equal or Higher than 0.121 ng/mL---Abnormal. Myocardial Injury or Necrosis Likely ? Biotin has been reported to cause a negative bias, interpret results relative to patient's use of biotin. ? Lab Interpretation Normal (test code = 54669-9) [facility] AtlantaaPTT2021-02-28 19:40:00 Test Item Value Reference Range Interpretation Comments APTT Patient (test See_Comment [Automat ed code = 3173-2) message] The system which generated this result transmitted reference range : 23 - 38 Seconds . The reference range was not used to interpr et this result as normal/abnormal . KANU (test code = KANU) The [facility] patient population mean normal value for aPTT is 30 seconds. Lab Interpretation Normal (test code = 13815-6) [facility] AtlantaProthrombin Time (PT) / [id number] 19:38:00 Test Item Value Reference Range Interpretation Comments PROTIME PATIENT (test See_Comment [Auto mated message] code = 5964-2) The system wh ich generated this result transmitted ref erence range: 12.0 - 1 4.7 Seconds. The re ference range was not u sed to interpret this result as normal/abnor mal. INR (test code = 6301-6) Nor mal INR <1.1; Warfarin Therap eutic range 2.0 to 3. 0 or 2.5 to 3.5, dep ending upon the indica tions. Lab Interpretation (test Normal code = 05380-9) [facility] AtlantaBasi Metabolic Panel (NA, K, CL, CO2, GLUCOSE, BUN, CREATININE, CA)2020-11-14 19:32:00 Test Item Value Reference Range Interpretation Comments NA (test code = 136 mmol/L 135-145 9984623407) K (test code = 4.2 mmol/L 3.5-5 0969714790) CL (test code = 103 mmol/L 98-108 1423265156) CO2 TOTAL (test code = 25 mmol/L 23-31 1415295656) AGAP (test code = 2-16 5611843398) BUN (test code = 20 mg/dL 7-23 8068249700) GLUCOSE (test code = 148 mg/dL 70-110 H 7508351483) CREATININE (test code = 1.16 mg/dL 0.5-1.04 H 6723062229) CALCIUM (test code = 9.0 mg/dL 8.6-10.6 3491498622) eGFR Calculation mL/min/1.73m2 (Non-) (test code = 9131796433) eGFR Calculation mL/min/1.73m2 () (test code = 6965876512) KANU (test code = KANU) Association of Glomerular Filtration Rate (GFR) and Staging of Kidney Disease* + --+ --+ ------+| GFR (mL/min/1.73 m2) ?| With Kidney Damage ?| ?Without Kidney Damage+ --------+ --------+ +| ?>90 ?| ?Stage one ?| ? Normal ?+ ---+ ---+ -------+| ?60-89 ?| ?Stage two ?| ? Decreased GFR ? + --+ --+ ------+| ?30-59 ?| ?Stage three ?| ? Stage three ? + --+ --+ ------+| ?15-29 ?| ?Stage four ? | ? Stage four ?+ ---+ ---+ -------+| ?<15 (or dialysis) ? ?| ?Stage five ? | ? Stage five ?+ ---+ ---+ -------+ *Each stage assumes the associated GFR level has been in effect for at least three months. ?Stages 1 to 5, with or without kidney disease, indicate chronic kidney disease. Notes: Determination of stages one and two (with eGFR >59mL/min/1.73 m2) requires estimation of kidney damage for at least three months as defined by structural or functional abnormalities of the kidney, manifested by either:Pathological abnormalities or Markers of kidney damage (including abnormalities in the composition of the blood or urine or abnormalities in imaging tests). Lab Interpretation Abnormal (test code = 02901-0) [facility] AtlantaHepatic Function Panel (ALB, T.PRO, BILI T, BU/BC, ALT, AST, ALK PHOS)2020-11-14 19:32:00 Test Item Value Reference Range Interpretation Comments TOTAL BILI (test code = 1534654081) 0.6 mg/dL 0.1-1.1 BILI UNCON (test code = 7367770699) 0.5 mg/dL 0.1-1.1 BILI CONJ (test code = 8555729463) 0.0 mg/dL 0-0.3 T PROTEIN (test code = 3894176048) 6.9 g/dL 6.3-8.2 ALBUMIN (test code = 6490407887) 4.1 g/dL 3.5-5 ALK PHOS (test code = 2803316983) 69 U/L 34-122 ALTv (test code = 1742-6) 11 U/L 5-35 AST(SGOT) (test code = 7901183683) 19 U/L 13-40 Lab Interpretation (test code = Normal 05518-5) [facility] AtlantaLipase [id number] 19:31:00 Test Item Value Reference Range Interpretation Comments LIPASE (test code = 7585022798) 42 U/L 0-220 Lab Interpretation (test code = Normal 19970-5) [facility] AtlantaCOVID-19 (ID NOW RAPID TESTING)2020-11-14 19:31:00 Test Item Value Reference Range Interpretation Comments SARS-CoV-2 Rapid ID NOW Not Detected Not Detected (test code = 62983-3) KANU (test code = KANU) ID NOW COVID-19 Assay is an isothermal nucleic acid amplification test intended for the qualitative detection of nucleic acid from SARS-CoV-2 viral RNA in nasopharyngeal (PROPERTY MANAGEMENT SUPERVISOR) specimens. It is used under Emergency Use Authorization (EUA) by FDA. The limit of detection (LOD) of the assay is 125 Genome Equivalents/mL. A positive result is indicative of the presence of SARS-CoV-2 RNA. ?Clinical correlation with patient history and other diagnostic information is necessary to determine patient infection status. A negative (Not Detected) result does not preclude SARS-CoV-2 infection. In patients with clinical symptoms and other tests that are consistent with SARS-CoV-2 infection, negative results should be treated as presumptive negative and a new specimen should be tested with alternative PCR molecular test. Invalid: Please collect a new specimen for repeat patient testing if clinically indicated. Lab Interpretation Normal (test code = 02087-5) [facility] AtlantaCB with [id number] 19:16:00 Test Item Value Reference Range Interpretation Comments WBC (test code = See_Comment H [Automated 6690-2) message] The sy stem which generated this result transmitted reference range : 4.30 - 11.10 10*3/?L. The reference range was not used to interpret this result as normal/abnormal . RBC (test code = See_Comment [Automated 789-8) message] The sy stem which generated this result transmitted reference range : 3.93 - 5.25 10*6/?L. The reference range was not used to interpret this result as normal/abnormal . HGB (test code = 11.2 g/dL 11.6-15 L 718-7) HCT (test code = 34.5 % 35.7-45.2 L 4544-3) MCV (test code = 81.6 fL 80.6-95.5 787-2) MCH (test code = 26.5 pg 25.9-32.8 785-6) MCHC (test code = 32.5 g/dL 31.6-35.1 786-4) RDW-SD (test code = 41.3 fL 39-49.9 58389-2) RDW-CV (test code = 14.1 % 12-15.5 788-0) PLT (test code = See_Comment [Automated 777-3) message] The sy stem which generated this result transmitted reference range : 166 - 358 10*3/ ?L. The reference r dayana was not used to interpret this result as normal/abnormal . MPV (test code = 10.1 fL 9.5-12.9 22420-5) NRBC/100 WBC (test See_Comment [Automat ed code = 9297847377) message] The system which generated this result transmitted reference range : 0.0 - 10.0 /100 WBCs. The refer ence range was not u sed to interpret th is result as normal/abnormal . NRBC x10^3 (test code <0.01 See_Comment [Auto mated = 1361978792) message] The s ystem which generated this result transmitted reference range : 10*3/?L. The reference range was not used to interpret this result as normal/abnormal . GRAN MAT (NEUT) % 73.2 % (test code = 770-8) IMM GRAN % (test code 0.70 % = 7786885130) LYMPH % (test code = 18.1 % 736-9) MONO % (test code = 6.6 % 5905-5) EOS % (test code = 1.1 % 713-8) BASO % (test code = 0.3 % 706-2) GRAN MAT x10^3(ANC) 8.41 10*3/uL 1.88-7.09 H (test code = 6638256080) IMM GRAN x10^3 (test 0.08 10*3/uL 0-0.06 H code = 9117872811) LYMPH x10^3 (test code 2.08 10*3/uL 1.32-3.29 = 731-0) MONO x10^3 (test code 0.76 10*3/uL 0.33-0.92 = 742-7) EOS x10^3 (test code = 0.13 10*3/uL 0.03-0.39 711-2) BASO x10^3 (test code 0.04 10*3/uL 0.01-0.07 = 704-7) Lab Interpretation Abnormal (test code = 23273-1) [facility] [place] (HIP AND SPINE)2020-08-25 20:15:51 HISTORY: Osteoporosis screening study. TECHNIQUE: Bone density estimation is done using DEXA scan, over the righthip and lumbar spines. FINDINGS: Details of the results are enclosed for your review. The summaryis as follows. RIGHT HIP:BMD value is 0.870 gm/sq cm, with T-score of -1.1. Estimated BMD intheneck is 0.746 g/sq cm with T score of - 2.1. LUMBAR SPINES:Average BMD value from L1 through L4 is 1.217 gm/sq cm, with T-score 0.2.Prominent osteophytes along the right lateral margins of L1-L2 andmildsclerosis at L2-L3 noted, contributing to BMD values. Incidental note made of gastric band surgical changes. CONCLUSION: Osteopenia noted in the neck of the right femur. ASSESSMENT: WHO-definitions: T-score normal: +/- 1 SD around the meanosteopenia: >1 to 2.4 SD below the meanosteoporosis: >2.5 SD below the meanFracture risk doubles for each 1.5 SD below the mean. [facility], Radiant ResultsInft User - 08/25/2020 2:16 PM CSTHISTORY: Osteoporosis screening study.TECHNIQUE: Bone density estimation is done using DEXA scan, over the righthip and lumbar spines.FINDINGS: Details of the resultsare enclosed for your review. The summaryis as follows.RIGHT HIP:BMD value is 0.870 gm/sq cm, with T-score of -1.1. Estimated BMD in theneck is 0.746 g/sq cm with T score of - 2.1.LUMBAR SPINES:AverageBMD value from L1 through L4 is 1.217 gm/sq cm, with T-score 0.2.Prominent osteophytes along the right lateral margins of L1-L2 and mildsclerosis at L2-L3 noted, contributing to BMD values.Incidental note made of gastric band surgical changes.CONCLUSION: Osteopenia noted in the neck of the right femur.ASSESSMENT: WHO-definitions: T- scorenormal: +/- 1 SD around the meanosteopenia: >1 to 2.4 SD below the meanosteoporosis: >2.5 SD below the meanFracture risk doubles for each 1.5 SD below the mean.[facility] AtlantaXR HIPS 2 VW BILATERAL 2020-08-25 19:21:09HISTORY: Bilateral hip pain. FINDINGS: AP and lateral views of right hip as well as left hip showed noacute fracture or dislocation. Minimal degenerative changes are seen in the upper weightbearing portion ofthe abdominal. No subchondral degenerative lesions are seen in the bones. Incidental note madeof heavily calcified 6 cm uterine fibroid. No signs ofAVN in the femoral heads or aggressive bone lesions seen. CONCLUSIONS: No acute fracture or dislocation in right hip or left hipjoint. [facility], Radiant Results Inft User - 08/25/2020 1:22 PM CSTHISTORY: Bilateral hip pain.FINDINGS: AP and lateral view s of right hip as well as left hip showed noacute fracture or dislocation.Minimal degenerative changes are seen in the upper weightbearing portion ofthe abdominal. No subchondral degenerative lesions are seen in the bones.Incidental note made of heavily calcified 6 cm uterine fibroid. No signs ofAVN in the femoral heads or aggressive bone lesions seen.CONCLUSIONS: No acute fracture or dislocation in right hip or left hipjoint.[facility] AtlantaCOVID-[facility] (ID NOW RAPID TESTING)2020-06-11 20:18:00 Test Item Value Reference Range Interpretation Comments SARS-CoV-2 Rapid ID NOW Not Detected Not Detected (test code = 94000-9) KANU (test code = KANU) ID NOW COVID-19 Assay is an isothermal nucleic acid amplification test intended for the qualitative detection of nucleic acid from SARS-CoV-2 viral RNA in nasopharyngeal ([employer]ERTY MANAGEMENT SUPERVISOR) specimens. It is used under Emergency Use Authorization (EUA) by FDA. The limit of detection (LOD) of the assay is 125 Genome Equivalents/mL. A positive result is indicative of the presence of SARS-CoV-2 RNA. ?Clinical correlation with patient history and other diagnostic information is necessary to determine patient infection status. A negative (Not Detected) result does not preclude SARS-CoV-2 infection. In patients with clinical symptoms and other tests that are consistent with SARS-CoV-2 infection, negative results should be treated as presumptive negative and a new specimen should be tested with alternative PCR molecular test. Invalid: Please collect a new specimen for repeat patient testing if clinically indicated. Lab Interpretation Normal (test code = 95499-7) [facility] (ID NOW RAPID TESTING)2020-06-03 22:06:00 Test Item Value Reference Range Interpretation Comments SARS-CoV-2 Rapid ID NOW Not Detected Not Detected (test code = 25700-9) KANU (test code = KANU) ID NOW COVID-19 Assay is an isothermal nucleic acid amplification test intended for the qualitative detection of nucleic acid from SARS-CoV-2 viral RNA in nasopharyngeal (PROPERTY MANAGEMENT SUPERVISOR) specimens. It is used under Emergency Use Authorization (EUA) by FDA. The limit of detection (LOD) of the assay is 125 Genome Equivalents/mL. A positive result is indicative of the presence of SARS-CoV-2 RNA. ?Clinical correlation with patient history and other diagnostic information is necessary to determine patient infection status. A negative (Not Detected) result does not preclude SARS-CoV-2 infection. In patients with clinical symptoms and other tests that are consistent with SARS-CoV-2 infection, negative results should be treated as presumptive negative and a new specimen should be tested with alternative PCR molecular test. Invalid: Please collect a new specimen for repeat patient testing if clinically indicated. Lab Interpretation Normal (test code = 55395-8) [facility] AtlantaTroponin [id number] 21:37:00 Test Item Value Reference Range Interpretation Comments TROPONIN I (test 0.002 ng/mL See_Comment [Automated code = 8010936127) message] The system which generated this result transmitted reference range : <=0.034. The reference range was not used to interpret this result as normal/abnormal . KANU (test code = Equal or Less than KANU) 0.034 ng/ml---Normal ?Note: Cardiac troponin begins to rise 3-4 hours after the onset of ischemia. Repeat in 4-6 hours if the sample was drawn within 3-4 hours of the onset of the symptom and found normal. Between 0.035 and 0.120 ng/mL--- Borderline. Questionable myocardial injury or necrosis ? ?Note: Serial measurement may be necessary to confirm or exclude the diagnosis of myocardial injury or necrosis; Clinical correlation (symptoms, EKGs, imaging studies, and others) required; Repeat in 4-6 hours if clinically indicated. ? Equal or Higher than 0.121 ng/mL---Abnormal. Myocardial Injury or Necrosis Likely ? Biotin has been reported to cause a negative bias, interpret results relative to patient's use of biotin. ? Lab Interpretation Normal (test code = 84693-1) [facility] [id number] 21:34:00 Test Item Value Reference Range Interpretation Comments NT-proBNP (test code 62 pg/mL See_Comment [Autom ated = [id number]) message] The system which generated this result transmitted reference range : <=450. The reference range was not used to interpret this result as normal/abnormal . KANU (test code = KANU) Biotin has been reported to cause a negative bias, interpret results relative to patient's use of biotin. Lab Interpretation Normal (test code = 37490-7) [facility] Atlanta[facility]thrombin Time (PT) / [id number] 21:30:00 Test Item Value Reference Range Interpretation Comments PROTIME PATIENT (test See_Comment [Auto mated message] code = 5964-2) The system wh ich generated this result transmitted ref erence range: 12.0 - 1 4.7 Seconds. The re ference range was not u sed to interpret this result as normal/abnor mal. INR (test code = 6301-6) Nor mal INR <1.1; Warfarin Therap eutic range 2.0 to 3. 0 or 2.5 to 3.5, dep ending upon the indica tions. Lab Interpretation (test Normal code = 38130-3) [facility]. METABOLIC PANEL ([id number])2020-06-03 21:25:00 Test Item Value Reference Range Interpretation Comments NA (test code = 139 mmol/L 135-145 7550499216) K (test code = 4.1 mmol/L 3.5-5 9327252861) CL (test code = 101 mmol/L 98-108 4840093943) CO2 TOTAL (test code = 24 mmol/L 23-31 3335891913) AGAP (test code = 2-16 9890459232) BUN (test code = 22 mg/dL 7-23 0940562954) GLUCOSE (test code = 118 mg/dL 70-110 H 6921319032) CREATININE (test code = 1.22 mg/dL 0.5-1.04 H 6797663619) TOTAL BILI (test code = 0.4 mg/dL 0.1-1.6 3005647408) CALCIUM (test code = 10.2 mg/dL 8.6-10.6 3057506262) T PROTEIN (test code = 7.7 g/dL 6.3-8.2 1301701652) ALBUMIN (test code = 4.5 g/dL 3.5-5 0237904163) ALK PHOS (test code = 61 U/L 34-122 9345210432) ALTv (test code = 23 U/L 5-35 1742-6) AST(SGOT) (test code = 27 U/L 13-40 7414700715) eGFR Calculation mL/min/1.73m2 (Non-) (test code = 3261421996) eGFR Calculation mL/min/1.73m2 () (test code = 2612428785) KANU (test code = KANU) Association of Glomerular Filtration Rate (GFR) and Staging of Kidney Disease* + --+ --+ ------+| GFR (mL/min/1.73 m2) ?| With Kidney Damage ?| ?Without Kidney Damage+ --------+ --------+ +| ?>90 ?| ?Stage one ?| ? Normal ?+ ---+ ---+ -------+| ?60-89 ?| ?Stage two ?| ? Decreased GFR ? + --+ --+ ------+| ?30-59 ?| ?Stage three ?| ? Stage three ? + --+ --+ ------+| ?15-29 ?| ?Stage four ? | ? Stage four ?+ ---+ ---+ -------+| ?<15 (or dialysis) ? ?| ?Stage five ? | ? Stage five ?+ ---+ ---+ -------+ *Each stage assumes the associated GFR level has been in effect for at least three months. ?Stages 1 to 5, with or without kidney disease, indicate chronic kidney disease. Notes: Determination of stages one and two (with eGFR >59mL/min/1.73 m2) requires estimation of kidney damage for at least three months as defined by structural or functional abnormalities of the kidney, manifested by either:Pathological abnormalities or Markers of kidney damage (including abnormalities in the composition of the blood or urine or abnormalities in imaging tests). Lab Interpretation Abnormal (test code = 02408-9) [facility] [place] CHEST 1 VW [id number] 21:16:49 Mild cardiomegaly. Short sliding hiatal hernia. No detectable radiographic findings to suggest COVID-19 pneumonia. Disclaimer: Generally, the findings on chest imaging in COVID-19 are notspecific, and overlap with other infections, including influenza, H1N1,SARS and MERS.According to the Centers forDisease Control (CDC) and recent statement ofthe [employer], viral testing remains the only specificmethod of diagnosis. Confirmation with the viral test is required, even ifradiologic findings are suggestive of COVID-[address]. Preliminary Report Dictated by Resident: Saud Nickerson MD., have reviewed this study and agree with theabove report.PROCEDURE: CHEST, SINGLE VIEW . CLINICAL INDICATION: shortness of breath COMPARISON: None FINDINGS: The lungs demonstrate minimal increase in the pulmonary interstitialmarkings in lower lungs. No focal consolidation, pleural effusion orpneumothorax is seen. The aortic arch is prominent. The heart is mil dly enlarged. No acute bony abnormality. [facility], Radiant Results Inft User - 06/03/2020 4:17 PM CDTPROCEDURE: CHEST, SINGLE VIEW .CLINICAL INDICATION: shortness of breath COMPARISON: NoneFINDINGS:The lungs demonstrate minimal increase in the pulmonary interstitialmarkings in lower lungs. No focal consol idation, pleural effusion orpneumothorax is seen.The aortic arch is prominent. The heart is mildly enlarged.No acute bony abnormality.IMPRESSIONMild cardiomegaly. Short sliding hiatal hernia.No detectable radiographic findings to suggest COVID-19 pneumonia.Disclaimer: Generally, the findings on chest imaging in COVID-19 are notspecific, and overlap with other infections, including influenza, H1N1,SARS and MERS.According to the Centers for Disease Control (CDC) and recent statement ofthe [employer], viral testing remains the only specificmethod of diagnosis. Confirmation with the viral test is required, even ifradiologic findings are suggestive of COVID-[address]. Preliminary Report Dictated by Resident: Saud Chatterjee MD., have reviewed this study and agree with theabove report.[facility] [place]CB with [id number] 21:09:00 Test Item Value Reference Range Interpretation Comments WBC (test code = See_Comment [Automated message] 6690-2) The system [employer] generated this result transmitted ref erence range: 4.30 - 1 1.10 10*3/?L. The re ference range was not u sed to interpret this result as normal/abnor mal. RBC (test code = See_Comment [Automated message] 789-8) The system [employer] generated this result transmitted ref erence range: 3.93 - 5 .25 10*6/?L. The re ference range was not u sed to interpret this result as normal/abnor mal. HGB (test code = 13.1 g/dL 11.6-15 718-7) HCT (test code = 40.2 % 35.7-45.2 4544-3) MCV (test code = 82.2 fL 80.6-95.5 787-2) MCH (test code = 26.8 pg 25.9-32.8 785-6) MCHC (test code = 32.6 g/dL 31.6-35.1 786-4) RDW-SD (test code 41.1 fL 39-49.9 = 45344-1) RDW-CV (test code 13.9 % 12-15.5 = 788-0) PLT (test code = See_Comment [Automated message] 777-3) The system whic h generated this result transmitted ref erence range: 166 - 35 8 10*3/?L. The re ference range was not u sed to interpret this result as normal/abnor mal. MPV (test code = 10.3 fL 9.5-12.9 27293-8) NRBC/100 WBC (test See_Comment [Automat ed message] code = 3354730936) The syste m which generated this result transmitted ref erence range: 0.0 - 10 .0 /100 WBCs. The refer ence range was not u sed to interpret this result as normal/abnor mal. NRBC x10^3 (test <0.01 See_Comment [Automated message] code = 6179148939) The syste m which generated this result transmitted ref erence range: 10*3/?L. The reference range was not used to interpr et this result as normal/abnormal . GRAN MAT (NEUT) % 52.1 % (test code = 770-8) IMM GRAN % (test 0.40 % code = 7189310668) LYMPH % (test code 37.9 % = 736-9) MONO % (test code 6.8 % = 5905-5) EOS % (test code = 2.4 % 713-8) BASO % (test code 0.4 % = 706-2) GRAN MAT 3.66 10*3/uL 1.88-7.09 x10^3(ANC) (test code = 8165835748) IMM GRAN x10^3 0.03 10*3/uL 0-0.06 (test code = 0751284425) LYMPH x10^3 (test 2.67 10*3/uL 1.32-3.29 code = 731-0) MONO x10^3 (test 0.48 10*3/uL 0.33-0.92 code = 742-7) EOS x10^3 (test 0.17 10*3/uL 0.03-0.39 code = 711-2) BASO x10^3 (test 0.03 10*3/uL 0.01-0.07 code = 704-7) [facility] GLUCOSE (AUTOMATED)2019-12-09 21:03:00 Test Item Value Reference Range Interpretation Comments POCT GLU (test code = 9551680433) 184 mg/dL 70-110 H Lab Interpretation (test code = Abnormal 80532-3) [facility] GLUCOSE (AUTOMATED)2019-12-09 16:38:00 Test Item Value Reference Range Interpretation Comments POCT GLU (test code = 4464691286) 157 mg/dL 70-110 H Lab Interpretation (test code = Abnormal 64046-8) [facility] ONLY CORONAVIRUS COVID-19 PCR GNL 2019-12-09 15:52:00 Test Item Value Reference Range Interpretation Comments Coronavirus COVID-19 Not Detected Not Detected (test code = 3157756141) KANU (test code = KANU) Not Detected: A negative result does not preclude COVID-19 infection and should not be used as the sole basis for treatment or other patient management decisions. Negative results must be combined with clinical observations, patient history, and epidemiological information. Presumptive Positive: Specimen will be sent to [facility] for confirmation testing. Inconclusive: Specimen will be sent to [facility] for additional testing. Invalid: Please collect a new specimen for repeat patient testing. Disclaimer:This test was developed and its performance characteristics determined by [facility]. It has not been cleared or approved by the US Food and Drug Administration (FDA). An Emergency Use Authorization (EUA) application is under preparation and FDA approval process. This test is used for clinical purposes. It should not be regarded as investigational or for research. This laboratory is certified under the Clinical Laboratory Improvement Amendments (CLIA) as qualified to perform high complexity clinical laboratory testing. Not Detected: A negative result does not preclude COVID-19 infection and should not be used as the sole basis for treatment or other patient management decisions. Negative results must be combined with clinical observations, patient history, and epidemiological information. Presumptive Positive: Specimen will be sent to [facility] for confirmation testing. Inconclusive: Specimen will be sent to [facility] for additional testing. Invalid: Please collect a new specimen for repeat patient testing. Disclaimer:This test was developed and its performance characteristics determined by [facility]. It has not been cleared or approved by the US Food and Drug Administration (FDA). An Emergency Use Authorization (EUA) application is under preparation and FDA approval process. This test is used for clinical purposes. It should not be regarded as investigational or for research. This laboratory is certified under the Clinical Laboratory Improvement Amendments (CLIA) as qualified to perform high complexity clinical laboratory testing. Lab Interpretation Normal (test code = 30821-9) [facility]2019-12-09 12:32:00 Test Item Value Reference Range Interpretation Comments POCT GLU (test code = 9594511468) 157 mg/dL 70-110 H Lab Interpretation (test code = Abnormal 95444-9) [facility] Atlanta[facility]YROID STIMULATING [id number] 12:24:00 Test Item Value Reference Range Interpretation Comments TSH (test code = See_Comment H [Automated message] 2816934969) The system [employer] generated this result transmitted ref erence range: 0.45 - 4 .70 mIU/L. The refe rence range was not u sed to interpret this result as normal/abnor mal. Lab Interpretation (test Abnormal code = 62590-6) [facility] (for use with Heparin Practice Guideline). Note: Draw and Send all Lab STAT.2019-12-09 12:08:00 Test Item Value Reference Range Interpretation Comments APTT Patient (test See_Comment H [Automat ed code = 3173-2) message] The system which generated this result transmitted reference range : 23 - 38 Seconds . The reference range was not used to interpr et this result as normal/abnormal . KANU (test code = KANU) The [facility] patient population mean normal value for aPTT is 30 seconds. Lab Interpretation Abnormal (test code = 07362-1) [facility] Metabolic [facility] (NA, K, CL, CO2, GLUCOSE, BUN, CREATININE, CA)2019-12-09 11:53:00 Test Item Value Reference Range Interpretation Comments NA (test code = 136 mmol/L 135-145 2805686729) K (test code = 4.0 mmol/L 3.5-5 4713098912) CL (test code = 100 mmol/L 98-108 4577057841) CO2 TOTAL (test code = 22 mmol/L 23-31 L 3532595750) AGAP (test code = 2-16 7968217097) BUN (test code = 15 mg/dL 7-23 1902701222) GLUCOSE (test code = 155 mg/dL 70-110 H 4611953392) CREATININE (test code = 1.23 mg/dL 0.5-1.04 H 2462730610) CALCIUM (test code = 9.8 mg/dL 8.6-10.6 0869676573) eGFR Calculation mL/min/1.73m2 (Non-) (test code = 9094636176) eGFR Calculation mL/min/1.73m2 () (test code = 2114963647) KANU (test code = KANU) Association of Glomerular Filtration Rate (GFR) and Staging of Kidney Disease* + --+ --+ ------+| GFR (mL/min/1.73 m2) ?| With Kidney Damage ?| ?Without Kidney Damage+ --------+ --------+ +| ?>90 ?| ?Stage one ?| ? Normal ?+ ---+ ---+ -------+| ?60-89 ?| ?Stage two ?| ? Decreased GFR ? + --+ --+ ------+| ?30-59 ?| ?Stage three ?| ? Stage three ? + --+ --+ ------+| ?15-29 ?| ?Stage four ? | ? Stage four ?+ ---+ ---+ -------+| ?<15 (or dialysis) ? ?| ?Stage five ? | ? Stage five ?+ ---+ ---+ -------+ *Each stage assumes the associated GFR level has been in effect for at least three months. ?Stages 1 to 5, with or without kidney disease, indicate chronic kidney disease. Notes: Determination of stages one and two (with eGFR >59mL/min/1.73 m2) requires estimation of kidney damage for at least three months as defined by structural or functional abnormalities of the kidney, manifested by either:Pathological abnormalities or Markers of kidney damage (including abnormalities in the composition of the blood or urine or abnormalities in imaging tests). Lab Interpretation Abnormal (test code = 11238-2) [facility] WITH [id number] 11:27:00 Test Item Value Reference Range Interpretation Comments WBC (test code = See_Comment [Automated 6690-2) message] The sy stem which generated this result transmitted reference range : 4.30 - 11.10 10*3/?L. The reference range was not used to interpret this result as normal/abnormal . RBC (test code = See_Comment H [Automated 789-8) message] The sy stem which generated this result transmitted reference range : 3.93 - 5.25 10*6/?L. The reference range was not used to interpret this result as normal/abnormal . HGB (test code = 14.5 g/dL 11.6-15 718-7) HCT (test code = 43.4 % 35.7-45.2 4544-3) MCV (test code = 82.4 fL 80.6-95.5 787-2) MCH (test code = 27.5 pg 25.9-32.8 785-6) MCHC (test code = 33.4 g/dL 31.6-35.1 786-4) RDW-SD (test code = 42.8 fL 39-49.9 33606-1) RDW-CV (test code = 14.6 % 12-15.5 788-0) PLT (test code = See_Comment [Automated 777-3) message] The sy stem which generated this result transmitted reference range : 166 - 358 10*3/ ?L. The reference r dayana was not used to interpret this result as normal/abnormal . MPV (test code = 10.2 fL 9.5-12.9 49329-7) NRBC/100 WBC (test See_Comment [Automat ed code = 3404372263) message] The system which generated this result transmitted reference range : 0.0 - 10.0 /100 WBCs. The refer ence range was not u sed to interpret th is result as normal/abnormal . NRBC x10^3 (test code <0.01 See_Comment [Auto mated = 0803444009) message] The s ystem which generated this result transmitted reference range : 10*3/?L. The reference range was not used to interpret this result as normal/abnormal . GRAN MAT (NEUT) % 51.0 % (test code = 770-8) IMM GRAN % (test code 0.50 % = 7018890751) LYMPH % (test code = 36.8 % 736-9) MONO % (test code = 8.2 % 5905-5) EOS % (test code = 3.1 % 713-8) BASO % (test code = 0.4 % 706-2) GRAN MAT x10^3(ANC) 4.10 10*3/uL 1.88-7.09 (test code = 2572070944) IMM GRAN x10^3 (test 0.04 10*3/uL 0-0.06 code = 5768618212) LYMPH x10^3 (test code 2.96 10*3/uL 1.32-3.29 = 731-0) MONO x10^3 (test code 0.66 10*3/uL 0.33-0.92 = 742-7) EOS x10^3 (test code = 0.25 10*3/uL 0.03-0.39 711-2) BASO x10^3 (test code 0.03 10*3/uL 0.01-0.07 = 704-7) Lab Interpretation Abnormal (test code = 10828-4) [facility] GLUCOSE (AUTOMATED)2019-12-09 00:28:00 Test Item Value Reference Range Interpretation Comments POCT GLU (test code = 2820895002) 208 mg/dL 70-110 H Lab Interpretation (test code = Abnormal 07658-5) [facility] [id number] 21:28:00 Test Item Value Reference Range Interpretation Comments URINE CULTURE (test No aerobic organisms code = 630-4) isolated [facility] GLUCOSE (AUTOMATED)2019-12-08 21:15:00 Test Item Value Reference Range Interpretation Comments POCT GLU (test code = 6174487715) 157 mg/dL 70-110 H Lab Interpretation (test code = Abnormal 38803-8) [facility]TT2020-03-23 20:10:00 Test Item Value Reference Range Interpretation Comments APTT Patient (test See_Comment H [Automat ed code = 3173-2) message] The system which generated this result transmitted reference range : 23 - 38 Seconds . The reference range was not used to interpr et this result as normal/abnormal . KANU (test code = KANU) The [facility] patient population mean normal value for aPTT is 30 seconds. Lab Interpretation Abnormal (test code = 12157-1) [facility] GLUCOSE (AUTOMATED)2019-12-08 16:46:00 Test Item Value Reference Range Interpretation Comments POCT GLU (test code = 5253096704) 172 mg/dL 70-110 H Lab Interpretation (test code = Abnormal 34680-7) [facility] GLUCOSE (AUTOMATED)2019-12-08 12:20:00 Test Item Value Reference Range Interpretation Comments POCT GLU (test code = 8838603128) 159 mg/dL 70-110 H Lab Interpretation (test code = Abnormal 81194-2) [facility] (for use with Heparin Practice Guideline). Note: Draw and Send all Lab STAT.2019-12-08 07:18:00 Test Item Value Reference Range Interpretation Comments APTT Patient (test See_Comment H [Automat ed code = 3173-2) message] The system which generated this result transmitted reference range : 23 - 38 Seconds . The reference range was not used to interpr et this result as normal/abnormal . KANU (test code = KANU) The [facility] patient population mean normal value for aPTT is 30 seconds. Lab Interpretation Abnormal (test code = 48621-0) [facility] WITH [id number] 07:05:00 Test Item Value Reference Range Interpretation Comments WBC (test code = See_Comment [Automated 6690-2) message] The sy stem which generated this result transmitted reference range : 4.30 - 11.10 10*3/?L. The reference range was not used to interpret this result as normal/abnormal . RBC (test code = See_Comment H [Automated 789-8) message] The sy stem which generated this result transmitted reference range : 3.93 - 5.25 10*6/?L. The reference range was not used to interpret this result as normal/abnormal . HGB (test code = 14.4 g/dL 11.6-15 718-7) HCT (test code = 42.8 % 35.7-45.2 4544-3) MCV (test code = 81.2 fL 80.6-95.5 787-2) MCH (test code = 27.3 pg 25.9-32.8 785-6) MCHC (test code = 33.6 g/dL 31.6-35.1 786-4) RDW-SD (test code = 41.9 fL 39-49.9 16026-2) RDW-CV (test code = 14.7 % 12-15.5 788-0) PLT (test code = See_Comment [Automated 777-3) message] The sy stem which generated this result transmitted reference range : 166 - 358 10*3/ ?L. The reference r dayana was not used to interpret this result as normal/abnormal . MPV (test code = 11.1 fL 9.5-12.9 01082-0) NRBC/100 WBC (test See_Comment [Automat ed code = 1594145188) message] The system which generated this result transmitted reference range : 0.0 - 10.0 /100 WBCs. The refer ence range was not u sed to interpret th is result as normal/abnormal . NRBC x10^3 (test code <0.01 See_Comment [Auto mated = 6396678232) message] The s ystem which generated this result transmitted reference range : 10*3/?L. The reference range was not used to interpret this result as normal/abnormal . GRAN MAT (NEUT) % 61.6 % (test code = 770-8) IMM GRAN % (test code 0.40 % = 5215962834) LYMPH % (test code = 28.3 % 736-9) MONO % (test code = 8.8 % 5905-5) EOS % (test code = 0.7 % 713-8) BASO % (test code = 0.2 % 706-2) GRAN MAT x10^3(ANC) 6.19 10*3/uL 1.88-7.09 (test code = 1979719351) IMM GRAN x10^3 (test 0.04 10*3/uL 0-0.06 code = 6040711926) LYMPH x10^3 (test code 2.85 10*3/uL 1.32-3.29 = 731-0) MONO x10^3 (test code 0.89 10*3/uL 0.33-0.92 = 742-7) EOS x10^3 (test code = 0.07 10*3/uL 0.03-0.39 711-2) BASO x10^3 (test code <0.03 0.01-0.07 = 704-7) Lab Interpretation Abnormal (test code = 43261-3) [facility] GLUCOSE (AUTOMATED)2019-12-08 01:01:00 Test Item Value Reference Range Interpretation Comments POCT GLU (test code = 150 mg/dL 70-110 H Notifi ed Provider [id number]) Lab Interpretation (test Abnormal code = 35470-8) [facility] (for use with Heparin Practice Guideline). Note: Draw and Send all Lab STAT.2019-12-07 22:35:00 Test Item Value Reference Range Interpretation Comments APTT Patient (test See_Comment H [Automat ed code = 3173-2) message] The system which generated this result transmitted reference range : 23 - 38 Seconds . The reference range was not used to interpr et this result as normal/abnormal . KANU (test code = KANU) The [facility] patient population mean normal value for aPTT is 30 seconds. Lab Interpretation Abnormal (test code = 23826-2) [facility] GLUCOSE (AUTOMATED)2019-12-07 21:50:00 Test Item Value Reference Range Interpretation Comments POCT GLU (test code = 4517755258) 152 mg/dL 70-110 H Lab Interpretation (test code = Abnormal 38264-0) [facility] GLUCOSE (AUTOMATED)2019-12-07 16:50:00 Test Item Value Reference Range Interpretation Comments POCT GLU (test code = 1120653036) 145 mg/dL 70-110 H Lab Interpretation (test code = Abnormal 55384-0) [facility] [place]cosylated Hemoglobin (A1C)2019-12-07 14:03:00 Test Item Value Reference Interpretation Comments Range HGB A1C (test code = See_Comment H [Autom ated 4548-4) message] The system which generated this result transmitted reference range : 4.0 - 6.0 % NGSP. The reference range was not used to interpret this result as normal/abnormal . KANU (test code = %A1C (NGSP) KANU) Interpretation (ADA)4.8-5.6 ? ? Normal or (Non-Diabetic Range)5.7-6.4 ? ? Increased Risk (Pre-Diabetic)>6.5 ?Diabetes Indicated Lab Interpretation Abnormal (test code = 62989-4) [facility]2019-12-07 13:38:00 Test Item Value Reference Range Interpretation Comments POCT GLU (test code = 1410442779) 134 mg/dL 70-110 H Lab Interpretation (test code = Abnormal 47533-1) [facility] (for use with Heparin Practice Guideline). Note: Draw and Send all Lab STAT.2019-12-07 12:03:00 Test Item Value Reference Range Interpretation Comments APTT Patient (test >150 See_Comment HH [Automat ed code = 3173-2) message] The system which generated this result transmitted reference range : 23 - 38 Seconds . The reference range was not used to interpr et this result as normal/abnormal . KANU (test code = KANU) The [facility] patient population mean normal value for aPTT is 30 seconds. Lab Interpretation Abnormal (test code = 86438-5) [facility] CHEST PULMONARY [id number] 04:05:36 Right upper lobe segmental pulmonary emboli. Findings were discussed with Dr. Gee at 10:20 PM. Preliminary Report Dictated by Resident: Terrance Bedoya MD., have reviewed this study and agree with theabove report.PROCEDURE: CT ANGIO CHEST WITH CONTRAST -PE PROTOCOL CLINICAL INDICATION: PE suspected, high pretest prob ? COMPARISON: ?None. TECHNIQUE: ?Helical CT was performed and reconstructed at 1.25 mm slicethickness from lung bases to apices using 120 mL Omnipaque 350 intravenouscontrast, without complication. ? 3D axial MIPS and coronal MPRS weregenerated under radiologist supervision, and reviewed to further defineanatomy and possible pathology.? FINDINGS: PULMONARY ARTERIES: Contrast bolus timing is adequate for evaluation ofpulmonary arterial vasculature. There is a partially occlusive thrombus within the right upper lobesubsegmental branch (9:100, 7:45) and right posterior segmental branch(7:53). Main pulmonary trunk measures 2.6 cm in transverse dimension at thelevel of right/left pulmonary artery bifurcation. CHEST:Lower neck/thyroid:Unremarkable. Lungs: Bilateral subsegmental atelectasis. Central airway: Patent central airways. Pleura: No pleural effusion, thickening or pneumothorax. Thoracic aorta and great vessels: ?Normal in diameter. Heart and pericardium: Mild atherosclerotic calcifications within the leftmain and LAD coronary artery distributions. Unremarkable cardiac morphologyand pericardium. Lymph nodes: No enlarged thoracic lymph nodes. Thoracic spine and chest wall: Unremarkable, with normal thoracic vertebralbody heights. Other Lines/Tubes/Devices/Hardware: None Visualized upper abdomen: Small hiatal hernia and gastric band. [facility], Radiant Results Inft User - 12/06/2019 11:06 PM CDTPROCEDURE: CT ANGIO CHEST WITH CONTRAST - PE PROTOCOLCLINICAL INDICATION: PE suspected, high pretest prob COMPARISON: None.TECHNIQUE: Helical CT was performed and reconstructed at 1.25 mm slicethickness from lung bases to apices using 120 mL Omnipaque 350 intravenouscontrast, without complication.3D axial MIPS and coronal MPRS weregenerated under radiologist supervision, and reviewed to further d efineanatomy and possible pathology. FINDINGS:PULMONARY ARTERIES: Contrast bolus timing is adequate for evaluation ofpulmonary arterial vasculature.There is a partially occlusive thrombus within the right upper lobesubsegmental branch (9:100, 7:45) and right posterior segmental branch(7:53). Main pulmonary trunk measures 2.6 cm in transverse dimension at thelevel of right/left pulmonary artery bifurcation.CHEST:Lower neck/thyroid: Unremarkable.Lungs: Bilateral subsegmental atelectasis.Central airway: Patent central airways.Pleura: No pleural effusion, thickening or pneumothorax.Thoracic aorta andgreat vessels: Normal in diameter.Heart and pericardium: Mild atherosclerotic calcifications withinthe leftmain and LAD coronary artery distributions. Unremarkable cardiac morphologyand pericardium.Lymph nodes: No enlarged thoracic lymph nodes.Thoracic spine and chest wall: Unremarkable, with normalthoracic vertebralbody heights.Other Lines/Tubes/Devices/Hardware: NoneVisualized upper abdomen: Small hiatal hernia and gastric band. IMPRESSIONRight upper lobe segmentalpulmonary emboli.Findings were discussed with Dr. Gee at 10:20 PM.Preliminary Report Dictated by Resident: Kristy Yao, Terracne Eng MD., have reviewed this study and agree with theabove report.[facility] Atlanta[facility]throm[facility] ([facility]) / INR 2019-12-07 04:05:00 Test Item Value Reference Range Interpretation Comments PROTIME PATIENT (test See_Comment [Auto mated message] code = 5964-2) The system wh ich generated this result transmitted ref erence range: 12.0 - 1 4.7 Seconds. The re ference range was not u sed to interpret this result as normal/abnor mal. INR (test code = 6301-6) Nor mal INR <1.1; Warfarin Therap eutic range 2.0 to 3. 0 or 2.5 to 3.5, dep ending upon the indica tions. Lab Interpretation (test Normal code = 82716-5) [facility] Atl[facility]aaPTT2020-03-22 04:04:00 Test Item Value Reference Range Interpretation Comments APTT Patient (test See_Comment [Automat ed code = 3173-2) message] The system which generated this result transmitted reference range : 23 - 38 Seconds . The reference range was not used to interpr et this result as normal/abnormal . KANU (test code = KANU) The [facility] patient population mean normal value for aPTT is 30 seconds. Lab Interpretation Normal (test code = 11060-2) [facility] AtlantaUrinalysis2020-03-22 03:34:00 Test Item Value Reference Range Interpretation Comments APPEARANCE (test code = Hazy Clear A 9853746214) COLOR (test code = Yellow Yellow 5317693655) PH (test code = 4.8-8.0 1431326354) SP GRAVITY (test code = 1.003-1.030 4838705118) GLU U QUAL (test code = Normal Normal 3504772594) BLOOD (test code = Negative Negative INTERFERE NCE FROM 9613868658) ASCORBIC ACID M AY CAUSE FALSE NEG ATIVE RESULT KETONES (test code = 5 mg/dL Negative A 7631053947) PROTEIN (test code = 30 mg/dL Negative A 2887-8) UROBILIN (test code = Normal Normal 9607139162) BILIRUBIN (test code = Negative Negative 2583624355) NITRITE (test code = Negative Negative 4967550585) LEUK ULISES (test code = 250/uL Negative A 8260777869) RBC/HPF (test code = See_Comment H [Autom ated message] 5239196912) The system [employer] generated this result transmitted ref erence range: 0 - 3 HP F. The reference range was not used to int erpret this result as normal/abnormal . WBC/HPF (test code = See_Comment H [Autom ated message] 3946619820) The system [employer] generated this result transmitted ref erence range: 0 - 5 HP F. The reference range was not used to int erpret this result as normal/abnormal . BACTERIA (test code = Few Negative A 9220905145) MUCOUS (test code = Slight Negative LPF A 3587361611) SQ EPITH (test code = HPF 9206457669) HYAL CAST (test code = See_Comment H [Aut omated message] 9757722043) The system [employer] generated this result transmitted ref erence range: <=2 LPF. The reference range was not used to int erpret this result as normal/abnormal . TRANS EPI (test code = See_Comment H [Aut omated message] 4276887325) The system [employer] generated this result transmitted ref erence range: <=1 HPF. The reference range was not used to int erpret this result as normal/abnormal . GLORIA EPITH (test code = See_Comment H [Aut omated message] 5656781043) The system [employer] generated this result transmitted ref erence range: <=1 HPF. The reference range was not used to int erpret this result as normal/abnormal . Lab Interpretation (test Abnormal code = 93278-8) [facility] 2 [id number] 02:52:25 No acute cardiopulmonary abnormality. Preliminary Report Dictated by Resident: Terrance Bedoya MD., have reviewed this study and agree with theabove report.PROCEDURE: XR CHEST 2 VW CLINICAL INDICATION: sob, fever COMPARISON: 08/24/2020. Technique: PA and lateral view of the chest. FINDINGS: The lungs are clear except for bilateral midlung atelectasis (similarprior). No pleural effusion or pneumothorax is seen. The heart is normal insize. Aortic arch calcifications. No acute bony abnormality. Diffuse bone demineralization. Gastric band projects in expected position. [facility], Radiant Results Inft User - 12/06/2019 9:53 PM CDTPROCEDURE: XR CHEST 2 VWCLINICAL INDICATION: sob, fever COMPARISON: 08/24/2020.Technique: PA and lateral view of the chest.FINDINGS:The lungs are clear except for bilateral midlung atelectasis (similarprior). No pleural effusion or pneumothorax is seen. The heart is normal insize. Aortic arch calcifications.No acute bony abnormality.Diffuse bone demineralization.Gastric band projects in expected position.IMPRESSIONNo acute cardiopulmonary abnormality. Preliminary Report Dictated by Resident: Kristy Yao, Terrance Eng MD., have reviewed this study and agree with theabove report.[facility] AtlantaJessica [id number] 02:31:00 Test Item Value Reference Range Interpretation Comments TROPONIN I (test 0.008 ng/mL See_Comment [Automated code = 9673397594) message] The system which generated this result transmitted reference range : <=0.034. The reference range was not used to interpret this result as normal/abnormal . KANU (test code = Equal or Less than KANU) 0.034 ng/ml---Normal ?Note: Cardiac troponin begins to rise 3-4 hours after the onset of ischemia. Repeat in 4-6 hours if the sample was drawn within 3-4 hours of the onset of the symptom and found normal. Between 0.035 and 0.120 ng/mL--- Borderline. Questionable myocardial injury or necrosis ? ?Note: Serial measurement may be necessary to confirm or exclude the diagnosis of myocardial injury or necrosis; Clinical correlation (symptoms, EKGs, imaging studies, and others) required; Repeat in 4-6 hours if clinically indicated. ? Equal or Higher than 0.121 ng/mL---Abnormal. Myocardial Injury or Necrosis Likely ? Biotin has been reported to cause a negative bias, interpret results relative to patient's use of biotin. ? Lab Interpretation Normal (test code = 99835-9) [facility] (NA, K, CL, CO2, GLUCOSE, BUN, CREATININE, CA)2019-12-07 02:19:00 Test Item Value Reference Range Interpretation Comments NA (test code = 141 mmol/L 135-145 9759423810) K (test code = 4.0 mmol/L 3.5-5 9537317495) CL (test code = 102 mmol/L 98-108 2483977540) CO2 TOTAL (test code = 22 mmol/L 23-31 L 2114662376) AGAP (test code = 2-16 H 5569132999) BUN (test code = 17 mg/dL 7-23 7308927369) GLUCOSE (test code = 109 mg/dL 70-110 8626436954) CREATININE (test code = 1.18 mg/dL 0.5-1.04 H 9927903763) CALCIUM (test code = 10.2 mg/dL 8.6-10.6 9613739697) eGFR Calculation mL/min/1.73m2 (Non-) (test code = 0508509021) eGFR Calculation mL/min/1.73m2 () (test code = 6732519332) KANU (test code = KANU) Association of Glomerular Filtration Rate (GFR) and Staging of Kidney Disease* + --+ --+ ------+| GFR (mL/min/1.73 m2) ?| With Kidney Damage ?| ?Without Kidney Damage+ --------+ --------+ +| ?>90 ?| ?Stage one ?| ? Normal ?+ ---+ ---+ -------+| ?60-89 ?| ?Stage two ?| ? Decreased GFR ? + --+ --+ ------+| ?30-59 ?| ?Stage three ?| ? Stage three ? + --+ --+ ------+| ?15-29 ?| ?Stage four ? | ? Stage four ?+ ---+ ---+ -------+| ?<15 (or dialysis) ? ?| ?Stage five ? | ? Stage five ?+ ---+ ---+ -------+ *Each stage assumes the associated GFR level has been in effect for at least three months. ?Stages 1 to 5, with or without kidney disease, indicate chronic kidney disease. Notes: Determination of stages one and two (with eGFR >59mL/min/1.73 m2) requires estimation of kidney damage for at least three months as defined by structural or functional abnormalities of the kidney, manifested by either:Pathological abnormalities or Markers of kidney damage (including abnormalities in the composition of the blood or urine or abnormalities in imaging tests). Lab Interpretation Abnormal (test code = 82931-7) [facility] Atlanta[facility] Function Panel (ALB, T.PRO, BILI T, BU/BC, ALT, AST, ALK PHOS)2019-12-07 02:19:00 Test Item Value Reference Range Interpretation Comments TOTAL BILI (test code = 3793425669) 0.4 mg/dL 0.1-1.1 BILI UNCON (test code = 6691725052) 0.3 mg/dL 0.1-1.1 BILI CONJ (test code = 3140790594) 0.0 mg/dL 0-0.3 T PROTEIN (test code = 5933480234) 8.2 g/dL 6.3-8.2 ALBUMIN (test code = 0652907950) 4.9 g/dL 3.5-5 ALK PHOS (test code = 9265122247) 70 U/L 34-122 ALTv (test code = 1742-6) 27 U/L 5-35 AST(SGOT) (test code = 3667973313) 35 U/L 13-40 Lab Interpretation (test code = Normal 46320-1) [facility] AtlantaLipase [id number] 02:19:00 Test Item Value Reference Range Interpretation Comments LIPASE (test code = 2737250476) 95 U/L 0-220 Lab Interpretation (test code = Normal 86530-3) [facility] AtlantaADC,CLC OR LCC ONLY - INFLUENZA A & B DIRECT [id number] 02:17:00 Test Item Value Reference Range Interpretation Comments Influenza A (test code = 40441-9) Negative Negative Influenza B (test code = 12468-1) Negative Negative Lab Interpretation (test code = Normal 54491-9) [facility] WITH [id number] 01:58:00 Test Item Value Reference Range Interpretation Comments WBC (test code = See_Comment [Automated message] 6690-2) The system [employer] generated this result transmitted ref erence range: 4.30 - 1 1.10 10*3/?L. The re ference range was not u sed to interpret this result as normal/abnor mal. RBC (test code = See_Comment [Automated message] 789-8) The system [employer] generated this result transmitted ref erence range: 3.93 - 5 .25 10*6/?L. The re ference range was not u sed to interpret this result as normal/abnor mal. HGB (test code = 13.7 g/dL 11.6-15 718-7) HCT (test code = 41.0 % 35.7-45.2 4544-3) MCV (test code = 82.0 fL 80.6-95.5 787-2) MCH (test code = 27.4 pg 25.9-32.8 785-6) MCHC (test code = 33.4 g/dL 31.6-35.1 786-4) RDW-SD (test code 41.4 fL 39-49.9 = 62461-0) RDW-CV (test code 13.9 % 12-15.5 = 788-0) PLT (test code = See_Comment [Automated message] 777-3) The system [employer] generated this result transmitted ref erence range: 166 - 35 8 10*3/?L. The re ference range was not u sed to interpret this result as normal/abnor mal. MPV (test code = 10.1 fL 9.5-12.9 00487-7) NRBC/100 WBC (test See_Comment [Automat ed message] code = 1878122006) The syste m which generated this result transmitted ref erence range: 0.0 - 10 .0 /100 WBCs. The refer ence range was not u sed to interpret this result as normal/abnor mal. NRBC x10^3 (test <0.01 See_Comment [Automated message] code = 5939538977) The syste m which generated this result transmitted ref erence range: 10*3/?L. The reference range was not used to interpr et this result as normal/abnormal . GRAN MAT (NEUT) % 53.5 % (test code = 770-8) IMM GRAN % (test 0.40 % code = 7918965795) LYMPH % (test code 35.7 % = 736-9) MONO % (test code 7.5 % = 5905-5) EOS % (test code = 2.6 % 713-8) BASO % (test code 0.3 % = 706-2) GRAN MAT 3.87 10*3/uL 1.88-7.09 x10^3(ANC) (test code = 8798886472) IMM GRAN x10^3 0.03 10*3/uL 0-0.06 (test code = 9259341943) LYMPH x10^3 (test 2.58 10*3/uL 1.32-3.29 code = 731-0) MONO x10^3 (test 0.54 10*3/uL 0.33-0.92 code = 742-7) EOS x10^3 (test 0.19 10*3/uL 0.03-0.39 code = 711-2) BASO x10^3 (test <0.03 0.01-0.07 code = 704-7) [facility] AtlantaXR CHEST 2 [id number] 01:30:47 No acute cardiopulmonary abnormality. Preliminary Report Dictated by Resident: Hitesh Fulton MD., have reviewed this study and agree with the abovereport.EXAM: XR CHEST 2 VW HISTORY: cough COMPARISON: Chest x-ray 10/08/2018 FINDINGS: Streaky opacities in the bilateral mid lung zones represents scarring. Nofocal consolidation, pleural effusion or pneumothorax is seen. The cardiac silhouette is normal in size. Calcifications at the aorticarch. No acute bony abnormality. [facility], Radiant Results Inft User - 11/14/2019 7:31 PM CSTEXAM: XR CHEST 2 VWHISTORY: cough COMPARISON: Chest x-ray 10/08/2018FINDINGS:Streaky opacities in the bilateral mid lung zones represents scarring. Nofocal consolidation, pleural effusion or pneumothorax is seen. The cardiac silhouette is normal in size. Calcifications at the aorticarch.No acute bony abnormality.IMPRESSIONNo acute cardiopulmonary abnormality.Preliminary Report Dictated by Resident: Ian Ty, Hitesh Jerome MD., have reviewed this study and agree with the abovereport.[facility] ADC,CLC OR LCC ONLY - INFLUENZA A & B DIRECT [id number] 01:10:00 Test Item Value Reference Range Interpretation Comments Influenza A (test code = 56652-6) Negative Negative Influenza B (test code = 61647-6) Negative Negative Lab Interpretation (test code = Normal 30901-3) [facility] AtlantaPOCT FLU A AND B (MOLECULAR)2019-11-09 01:21:00 Test Item Value Reference Range Interpretation Comments POCT INFLUENZA A (test neg Negative - code = 3840) Negative POCT INFLUENZA B (test neg Negative - code = 3841) Negative KANU (test code = KANU) accurate development and interpretation of all internal controls Lab Interpretation Normal (test code = 40903-5) [facility] AtlantaMICROALBUMIN [id number] 16:21:00 Test Item Value Reference Range Interpretation Comments CREAT U (test 230.5 mg/dL code = 4487664802) MICROALB U 23 ug/mL 0-45 (test code = 47900-2) MICROAL/CR See_Comment [Automated (test code = message] [employer] 9318-7) system which generated this result transmitted reference range : 0 - 30 mg/g of creatinine. The reference range was not used to interpret this result as normal/abnormal . KANU (test code Normal: <30 mg/g = KANU) creatinineMicroalbuminur ia: 30 - 299 mg/g creatinineClinical albuminuria: > 300 mg/g creatinine [facility] AtlantaMICROALBUMIN [id number] 16:21:00 Test Item Value Reference Range Interpretation Comments CREAT U (test 230.5 mg/dL code = 5364286370) MICROALB U 23 ug/mL 0-45 (test code = 45955-0) MICROAL/CR See_Comment [Automated (test code = message] [employer] 9318-7) system which generated this result transmitted reference range : 0 - 30 mg/g of creatinine. The reference range was not used to interpret this result as normal/abnormal . KANU (test code Normal: <30 mg/g = KANU) creatinineMicroalbuminur ia: 30 - 299 mg/g creatinineClinical albuminuria: > 300 mg/g creatinine [facility] AtlantaTHYROID STIMULATING [id number] 19:20:00 Test Item Value Reference Range Interpretation Comments TSH (test code = See_Comment [Automated message] 3065780382) The system [employer] generated this result transmitted ref erence range: 0.45 - 4 .70 mIU/L. The refe rence range was not u sed to interpret this result as normal/abnor mal. Lab Interpretation (test Normal code = 60479-5) [facility] AtlantaTHYROID STIMULATING [id number] 19:20:00 Test Item Value Reference Range Interpretation Comments TSH (test code = See_Comment [Automated message] 8788470768) The system [employer] generated this result transmitted ref erence range: 0.45 - 4 .70 mIU/L. The refe rence range was not u sed to interpret this result as normal/abnor mal. Lab Interpretation (test Normal code = 13089-8) [facility] AtlantaLIPID PANEL (67503)(TOTAL CHOLESTEROL, TRIGLYCERIDES, HDL)2019-10-30 18:53:00 Test Item Value Reference Range Interpretation Comments CHOL (test code = 250 mg/dL 120-200 H 9580273529) HDL (test code = 46 mg/dL >50 L 6966347130) HDLC RATIO (test code = See_Comment H [Au tomated message] 4625891913) The system [employer] generated this result transmit cesar reference range : <=4.5. The refe rence range was not u sed to interpret th is result as normal/abnormal . TRIG (test code = 162 mg/dL 30-170 2639995035) LDL CHOL (test code = 172 mg/dL See_Comment H [Auto mated message] 58297-4) The system [employer] generated this result transmit cesar reference range : <=160. The refe rence range was not u sed to interpret th is result as normal/abnormal . VLDL (test code = 32 mg/dL 5-60 2393028567) Lab Interpretation (test Abnormal code = 97516-9) [facility] AtlantaLIPID PANEL (33362)(TOTAL CHOLESTEROL, TRIGLYCERIDES, HDL)2019-10-30 18:53:00 Test Item Value Reference Range Interpretation Comments CHOL (test code = 250 mg/dL 120-200 H 9918317210) HDL (test code = 46 mg/dL >50 L 2204129506) HDLC RATIO (test code = See_Comment H [Au tomated message] 9271886006) The system [employer] generated this result transmit cesar reference range : <=4.5. The refe rence range was not u sed to interpret th is result as normal/abnormal . TRIG (test code = 162 mg/dL 30-170 2960891856) LDL CHOL (test code = 172 mg/dL See_Comment H [Auto mated message] 27358-6) The system [employer] generated this result transmit cesar reference range : <=160. The refe rence range was not u sed to interpret th is result as normal/abnormal . VLDL (test code = 32 mg/dL 5-60 5841180703) Lab Interpretation (test Abnormal code = 18563-8) [facility]. METABOLIC PANEL (09348)2019-10-30 18:52:00 Test Item Value Reference Range Interpretation Comments NA (test code = 140 mmol/L 135-145 6242765004) K (test code = 4.8 mmol/L 3.5-5 6865568757) CL (test code = 102 mmol/L 98-108 2096577503) CO2 TOTAL (test code = 28 mmol/L 23-31 7158450142) AGAP (test code = 2-16 2908590176) BUN (test code = 28 mg/dL 7-23 H 1094365332) GLUCOSE (test code = 99 mg/dL 70-110 1170494484) CREATININE (test code = 1.56 mg/dL 0.5-1.04 H 5041466119) TOTAL BILI (test code = 0.5 mg/dL 0.1-1.7 8015666588) CALCIUM (test code = 10.3 mg/dL 8.6-10.6 2470291897) T PROTEIN (test code = 7.1 g/dL 6.3-8.2 8771513172) ALBUMIN (test code = 4.5 g/dL 3.5-5 2265076185) ALK PHOS (test code = 57 U/L 34-122 2430929134) ALTv (test code = 19 U/L 5-35 1742-6) AST(SGOT) (test code = 23 U/L 13-40 8051985609) eGFR Calculation mL/min/1.73m2 (Non-) (test code = 7254209682) eGFR Calculation mL/min/1.73m2 () (test code = 1962959710) KANU (test code = KANU) Association of Glomerular Filtration Rate (GFR) and Staging of Kidney Disease* + --+ --+ ------+| GFR (mL/min/1.73 m2) ?| With Kidney Damage ?| ?Without Kidney Damage+ --------+ --------+ +| ?>90 ?| ?Stage one ?| ? Normal ?+ ---+ ---+ -------+| ?60-89 ?| ?Stage two ?| ? Decreased GFR ? + --+ --+ ------+| ?30-59 ?| ?Stage three ?| ? Stage three ? + --+ --+ ------+| ?15-29 ?| ?Stage four ? | ? Stage four ?+ ---+ ---+ -------+| ?<15 (or dialysis) ? ?| ?Stage five ? | ? Stage five ?+ ---+ ---+ -------+ *Each stage assumes the associated GFR level has been in effect for at least three months. ?Stages 1 to 5, with or without kidney disease, indicate chronic kidney disease. Notes: Determination of stages one and two (with eGFR >59mL/min/1.73 m2) requires estimation of kidney damage for at least three months as defined by structural or functional abnormalities of the kidney, manifested by either:Pathological abnormalities or Markers of kidney damage (including abnormalities in the composition of the blood or urine or abnormalities in imaging tests). Lab Interpretation Abnormal (test code = 65362-1) [facility]. METABOLIC PANEL (97447)2019-10-30 18:52:00 Test Item Value Reference Range Interpretation Comments NA (test code = 140 mmol/L 135-145 0250419063) K (test code = 4.8 mmol/L 3.5-5 6237345206) CL (test code = 102 mmol/L 98-108 4120672576) CO2 TOTAL (test code = 28 mmol/L 23-31 0835415654) AGAP (test code = 2-16 3701562900) BUN (test code = 28 mg/dL 7-23 H 0408182002) GLUCOSE (test code = 99 mg/dL 70-110 3829441698) CREATININE (test code = 1.56 mg/dL 0.5-1.04 H 2327411461) TOTAL BILI (test code = 0.5 mg/dL 0.1-1.7 1183609479) CALCIUM (test code = 10.3 mg/dL 8.6-10.6 0215076152) T PROTEIN (test code = 7.1 g/dL 6.3-8.2 0722586945) ALBUMIN (test code = 4.5 g/dL 3.5-5 5838109720) ALK PHOS (test code = 57 U/L 34-122 5856748700) ALTv (test code = 19 U/L 5-35 1742-6) AST(SGOT) (test code = 23 U/L 13-40 8983012355) eGFR Calculation mL/min/1.73m2 (Non-) (test code = 0712948622) eGFR Calculation mL/min/1.73m2 () (test code = 4467840947) KANU (test code = KANU) Association of Glomerular Filtration Rate (GFR) and Staging of Kidney Disease* + --+ --+ ------+| GFR (mL/min/1.73 m2) ?| With Kidney Damage ?| ?Without Kidney Damage+ --------+ --------+ +| ?>90 ?| ?Stage one ?| ? Normal ?+ ---+ ---+ -------+| ?60-89 ?| ?Stage two ?| ? Decreased GFR ? + --+ --+ ------+| ?30-59 ?| ?Stage three ?| ? Stage three ? + --+ --+ ------+| ?15-29 ?| ?Stage four ? | ? Stage four ?+ ---+ ---+ -------+| ?<15 (or dialysis) ? ?| ?Stage five ? | ? Stage five ?+ ---+ ---+ -------+ *Each stage assumes the associated GFR level has been in effect for at least three months. ?Stages 1 to 5, with or without kidney disease, indicate chronic kidney disease. Notes: Determination of stages one and two (with eGFR >59mL/min/1.73 m2) requires estimation of kidney damage for at least three months as defined by structural or functional abnormalities of the kidney, manifested by either:Pathological abnormalities or Markers of kidney damage (including abnormalities in the composition of the blood or urine or abnormalities in imaging tests). Lab Interpretation Abnormal (test code = 12176-9) [facility]2019-10-30 18:34:00 Test Item Value Reference Interpretation Comments Range HGB A1C (test code = See_Comment H [Autom ated 4548-4) message] The system which generated this result transmitted reference range : 4.0 - 6.0 % NGSP. The reference range was not used to interpret this result as normal/abnormal . KANU (test code = %A1C (NGSP) KANU) Interpretation (ADA)4.8-5.6 ? ? Normal or (Non-Diabetic Range)5.7-6.4 ? ? Increased Risk (Pre-Diabetic)>6.5 ?Diabetes Indicated Lab Interpretation Abnormal (test code = 72072-5) [facility]2019-10-30 18:34:00 Test Item Value Reference Interpretation Comments Range HGB A1C (test code = See_Comment H [Autom ated 4548-4) message] The system which generated this result transmitted reference range : 4.0 - 6.0 % NGSP. The reference range was not used to interpret this result as normal/abnormal . KANU (test code = %A1C (NGSP) KANU) Interpretation (ADA)4.8-5.6 ? ? Normal or (Non-Diabetic Range)5.7-6.4 ? ? Increased Risk (Pre-Diabetic)>6.5 ?Diabetes Indicated Lab Interpretation Abnormal (test code = 03502-7) [facility] WITH [id number] 18:08:00 Test Item Value Reference Range Interpretation Comments WBC (test code = See_Comment [Automated message] 6690-2) The system [employer] generated this result transmitted ref erence range: 4.30 - 1 1.10 10*3/?L. The re ference range was not u sed to interpret this result as normal/abnor mal. RBC (test code = See_Comment [Automated message] 789-8) The system [employer] generated this result transmitted ref erence range: 3.93 - 5 .25 10*6/?L. The re ference range was not u sed to interpret this result as normal/abnor mal. HGB (test code = 12.5 g/dL 11.6-15 718-7) HCT (test code = 38.4 % 35.7-45.2 4544-3) MCV (test code = 84.0 fL 80.6-95.5 787-2) MCH (test code = 27.4 pg 25.9-32.8 785-6) MCHC (test code = 32.6 g/dL 31.6-35.1 786-4) RDW-SD (test code 41.0 fL 39-49.9 = 10578-8) RDW-CV (test code 13.3 % 12-15.5 = 788-0) PLT (test code = See_Comment [Automated message] 777-3) The system [employer] generated this result transmitted ref erence range: 166 - 35 8 10*3/?L. The re ference range was not u sed to interpret this result as normal/abnor mal. MPV (test code = 10.5 fL 9.5-12.9 40808-9) NRBC/100 WBC (test See_Comment [Automat ed message] code = 5894247167) The syste m which generated this result transmitted ref erence range: 0.0 - 10 .0 /100 WBCs. The refer ence range was not u sed to interpret this result as normal/abnor mal. NRBC x10^3 (test <0.01 See_Comment [Automated message] code = 3089075503) The syste m which generated this result transmitted ref erence range: 10*3/?L. The reference range was not used to interpr et this result as normal/abnormal . GRAN MAT (NEUT) % 53.9 % (test code = 770-8) IMM GRAN % (test 0.50 % code = 6579953078) LYMPH % (test code 35.7 % = 736-9) MONO % (test code 6.5 % = 5905-5) EOS % (test code = 2.9 % 713-8) BASO % (test code 0.5 % = 706-2) GRAN MAT 3.58 10*3/uL 1.88-7.09 x10^3(ANC) (test code = 6167914871) IMM GRAN x10^3 0.03 10*3/uL 0-0.06 (test code = 4568161277) LYMPH x10^3 (test 2.37 10*3/uL 1.32-3.29 code = 731-0) MONO x10^3 (test 0.43 10*3/uL 0.33-0.92 code = 742-7) EOS x10^3 (test 0.19 10*3/uL 0.03-0.39 code = 711-2) BASO x10^3 (test 0.03 10*3/uL 0.01-0.07 code = 704-7) [facility] WITH [id number] 18:08:00 Test Item Value Reference Range Interpretation Comments WBC (test code = See_Comment [Automated message] 0290-2) The system [employer] generated this result transmitted ref erence range: 4.30 - 1 1.10 10*3/?L. The re ference range was not u sed to interpret this result as normal/abnor mal. RBC (test code = See_Comment [Automated message] 789-8) The system [employer] generated this result transmitted ref erence range: 3.93 - 5 .25 10*6/?L. The re ference range was not u sed to interpret this result as normal/abnor mal. HGB (test code = 12.5 g/dL 11.6-15 278-7) HCT (test code = 38.4 % 35.7-45.2 4544-3) MCV (test code = 84.0 fL 80.6-95.5 787-2) MCH (test code = 27.4 pg 25.9-32.8 785-6) MCHC (test code = 32.6 g/dL 31.6-35.1 786-4) RDW-SD (test code 41.0 fL 39-49.9 = 17011-3) RDW-CV (test code 13.3 % 12-15.5 = 788-0) PLT (test code = See_Comment [Automated message] 777-3) The system whic h generated this result transmitted ref erence range: 166 - 35 8 10*3/?L. The re ference range was not u sed to interpret this result as normal/abnor mal. MPV (test code = 10.5 fL 9.5-12.9 94659-3) NRBC/100 WBC (test See_Comment [Automat ed message] code = 0005283942) The syste m which generated this result transmitted ref erence range: 0.0 - 10 .0 /100 WBCs. The refer ence range was not u sed to interpret this result as normal/abnor mal. NRBC x10^3 (test <0.01 See_Comment [Automated message] code = 6294502379) The syste m which generated this result transmitted ref erence range: 10*3/?L. The reference range was not used to interpr et this result as normal/abnormal . GRAN MAT (NEUT) % 53.9 % (test code = 770-8) IMM GRAN % (test 0.50 % code = 7686757490) LYMPH % (test code 35.7 % = 736-9) MONO % (test code 6.5 % = 5905-5) EOS % (test code = 2.9 % 713-8) BASO % (test code 0.5 % = 706-2) GRAN MAT 3.58 10*3/uL 1.88-7.09 x10^3(ANC) (test code = 2272714310) IMM GRAN x10^3 0.03 10*3/uL 0-0.06 (test code = 4815053110) LYMPH x10^3 (test 2.37 10*3/uL 1.32-3.29 code = 731-0) MONO x10^3 (test 0.43 10*3/uL 0.33-0.92 code = 742-7) EOS x10^3 (test 0.19 10*3/uL 0.03-0.39 code = 711-2) BASO x10^3 (test 0.03 10*3/uL 0.01-0.07 code = 704-7) [facility] [id number] 01:01:19 No acute osseous abnormality. 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 IRickey MD., have reviewed this study and agree with the abovereport.EXAM: XR SPINE THORACIC 3 VW,EXAM: XR LUMBAR SPINE 3 VW HISTORY: pain on right side to mid and low back for 7 days. She hadbacksurgery 1-2 years ago. Now having pain to mid and low back on right side. COMPARISON:?L-spine rad iographs on 10/15/2017 FINDINGS: T-SPINE: The thoracic vertebral bodies are normal in height and in normal alignment.No acute fracture or subluxation. There is mild multilevel degenerative changes in the form of disc spacenarrowing, endplate sclerosis, and osteophytosis. A gastric band is noted. L-SPINE: There are 5 nonrib-bearing lumbar type vertebrae. The lumbar vertebralbodies are normal in height. Mild anterolisthesis of L4 on L5 is seen. Noacute fracture or subluxation. There is mild multileveldegenerative changes in the form of disc spacenarrowing, endplate sclerosis, and osteophytosis. Facet arthropathy affectsthe lower lumbar spine at L3-L5 and L5-S1. 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 Calcified granulomas are noted in the gluteal soft tissues. [facility], Radiant Results Inft User - 06/02/2019 8:01 PM CDTEXAM: XR SPINE THORACIC 3 VW,EXAM: XR LUMBAR SPINE 3 VWHISTORY: pain on right side to mid and low back for 7 days. She had backsurgery 1-2 years ago. Now having pain to mid and low back on right side.COMPARISON: L-spine radiographs on 10/15/2017 FINDINGS:T-SPINE:The thoracic vertebral bodies are normal in height and in normal alignment.No acute fracture or subluxation.There is mild multilevel degenerative changes in the form of disc spacenarrowing, endplate sclerosis, and osteophytosis. A gastric band is noted.L-SPINE:There are 5 nonrib-bearinglumbar type vertebrae. The lumbar vertebralbodies are normal in height. Mild anterolisthesis of L4 on L5 is seen. Noacute fracture or subluxation.There is mild multilevel degenerative changes in the form of disc spacenarrowing, endplate sclerosis, and osteophytosis. 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 Calcified granulomas are noted in the gluteal soft tissues.IMPRESSIONNo acute osseous abnormality. Multilevel degenerative changes of the thoracic and lumbar spine.Rickey Quezada MD., have reviewed this study and agree with the abovereport.[facility] 3 [id number] 01:01:19 No acute osseous abnormality. 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 Rickey Quezada MD., have reviewed this study and agree with the abovereport.EXAM: XR SPINE THORACIC 3 VW,EXAM: XR LUMBAR SPINE 3 VW HISTORY: pain on right side to mid and low back for 7 days. She hadbacksurgery 1-2 years ago. Now having pain to mid and low back on right side. COMPARISON:?L-spine rad iographs on 10/15/2017 FINDINGS: T-SPINE: The thoracic vertebral bodies are normal in height and in normal alignment.No acute fracture or subluxation. There is mild multilevel degenerative changes in the form of disc spacenarrowing, endplate sclerosis, and osteophytosis. A gastric band is noted. L-SPINE: There are 5 nonrib-bearing lumbar type vertebrae. The lumbar vertebralbodies are normal in height. Mild anterolisthesis of L4 on L5 is seen. Noacute fracture or subluxation. There is mild multileveldegenerative changes in the form of disc spacenarrowing, endplate sclerosis, and osteophytosis. Facet arthropathy affectsthe lower lumbar spine at L3-L5 and L5-S1. 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 Calcified granulomas are noted in the gluteal soft tissues. [facility], Radiant Results Inft User - 06/02/2019 8:01 PM CDTEXAM: XR SPINE THORACIC 3 VW,EXAM: XR LUMBAR SPINE 3 VWHISTORY: pain on right side to mid and low back for 7 days. She had backsurgery 1-2 years ago. Now having pain to mid and low back on right side.COMPARISON: L-spine radiographs on 10/15/2017 FINDINGS:T-SPINE:The thoracic vertebral bodies are normal in height and in normal alignment.No acute fracture or subluxation.There is mild multilevel degenerative changes in the form of disc spacenarrowing, endplate sclerosis, and osteophytosis. A gastric band is noted.L-SPINE:There are 5 nonrib-bearinglumbar type vertebrae. The lumbar vertebralbodies are normal in height. Mild anterolisthesis of L4 on L5 is seen. Noacute fracture or subluxation.There is mild multilevel degenerative changes in the form of disc spacenarrowing, endplate sclerosis, and osteophytosis. 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 Calcified granulomas are noted in the gluteal soft tissues.IMPRESSIONNo acute osseous abnormality. Multilevel degenerative changes of the thoracic and lumbar spine.IRickey MD., have reviewed this study and agree with the abovereport.[facility]"
== END 2021-07-15 14:00 | disposition home or self-care (01) | DRG 247 ==
LOC: CCL 12:49 → 4TH 15:40
PROVIDERS: ATTEND Internal Medicine
PROC: 027034Z Dilation of Coronary Artery, One Artery with Drug-eluting Intraluminal Device, Percutaneous Approach (ICD-10-PCS; principal; 2021-07-14)
PROC: 4A023N8 Measurement of Cardiac Sampling and Pressure, Bilateral, Percutaneous Approach (ICD-10-PCS; 2021-07-14)
PROC: B206YZZ Plain Radiography of Right and Left Heart using Other Contrast (ICD-10-PCS; 2021-07-14)
DX: I25.110 Atherosclerotic heart disease of native coronary artery with unstable angina pectoris (principal); E11.9 Type 2 diabetes mellitus without complications; E78.5 Hyperlipidemia, unspecified; I73.9 Peripheral vascular disease, unspecified; Z88.0 Allergy status to penicillin; Z20.822 Contact with and (suspected) exposure to COVID-19
CPT/HCPCS: 36415; 71046; 80048; 82947; 85014; 85018; 85025; 85347; 85610; 85730; 93456; C1725; C1893; C9600; J1644; J2250; J3010; J7040; U0003

== ENCOUNTER 2021-07-20 09:50 | Inpatient (IN) | payer OTHER ==
[2021-07-20] MEDS ORDERED: NA CHLORIDE 0.9% 500 ML ONE (10:17)
[2021-07-20 10:39] LABS: Absolute Lymphocytes (CBC) 1.7 K/uL (0.7-4.9); Basophils % 0.8 % (0-1.3); Lymphocytes % 28.1 % (15.3-44.8); MPV 7.7 fL (7.6-11.3); RBC Red Blood Cell Count 4.01 M/uL (3.86-4.86)
[2021-07-20 10:43] LABS: Protime INR 0.85
[2021-07-20] MEDS ORDERED: MECLIZINE HCL 12.5 MG TAB ONE (10:56)
[2021-07-20 10:59] LABS: BUN Blood Urea Nitrogen 22 mg/dL (7-18); Bicarbonate 28 mmol/L (21-32); Glucose Level 140 mg/dL (74-106); Potassium 4.2 mmol/L (3.5-5.1); Sodium Level 139 mmol/L (136-145); Troponin (Emerg Dept Use Only) < 0.02 ng/mL (0.0-0.045)
--- NOTE | 2021-07-20 11:02 | RAD REPORT ---
EXAM DESCRIPTION: CT - Head Brain Wo Cont - 07/20/2021 10:33 am CLINICAL HISTORY: Syncope COMPARISON: April 2021 TECHNIQUE: Computed axial tomography of the head was obtained. IV contrast was not requested. All CT scans are performed using dose optimization technique as appropriate and may include automated exposure control or mA/KV adjustment according to patient size. FINDINGS: An intracranial bleed is not seen . The ventricles are normal in caliber. No extra-axial fluid collection is noted. Fluid within the sinuses/ mastoids is not seen. IMPRESSION: No acute intracranial abnormality is seen. If patient's symptoms persist MRI of the bra in would be recommended.
--- NOTE | 2021-07-20 11:53 | ER ---
Nurse's Notes [facility] Name: Melanie Lyons Age: 80 yrs Sex: Female : 1940 Arrival Date: 07/20/2021 Time: 09:51 Bed 4 Private MD: Deyvi Capone S; Patel, Mitesh Diagnosis: Syncope and collapse;Dizziness and giddiness Presentation: 07/20 10:07 Chief complaint: Patient states: Had heart cath. here . Went home Sunday. ll1 Started passing out daily since Sunday. + dizziness and QUIROZ's. No known fever. Coronavirus screen: Vaccine status: Patient reports being unvaccinated. Client denies travel out of the [place] in the last 14 days. headache, At this time, the client does not indicate any symptoms associated with coronavirus-19. Ebola Screen: Patient denies travel to an Ebola-affected area in the 21 days before illness onset. Initial Sepsis Screen: Does the patient meet any 2 criteria? No. Patient's initial sepsis screen is negative. Does the patient have a suspected source of infection? No. Patient's initial sepsis screen is negative. Risk Assessment: Do you want to hurt yourself or someone else? Patient reports no desire to harm self or others. Onset of symptoms was July 15, 2021. 10:07 Method Of Arrival: Wheelchair ll1 10:07 Acuity: VIRAL 2 ll1 Historical: - Allergies: 10:06 PENICILLINS; ll1 10:06 Lisinopril; cough; ll1 - PMHx: 10:06 diabetes mellitus; Hypertensive disorder; Hypothyroidism; ll1 - PSHx: 10:06 Appendectomy; back; heart cath; ll1 - Immunization history:: Client reports having NOT received the Covid vaccine. Flu vaccine is not up to date. - Social history:: Smoking status: Patient denies any tobacco usage or history of. - Family history:: not pertinent. - Hospitalizations: : No recent hospitalization is reported. Screenin:08 Abuse screen: Denies threats or abuse. Nutritional screening: No deficits noted. tw2 Tuberculosis screening: No symptoms or risk factors identified. Fall Risk Secondary diagnosis (15 points) impaired mobility. Assessment: 10:07 Reassessment: provider at bedside at this time. tw2 10:20 General: Appears in no apparent distress. obese, well groomed, Behavior is calm, tw2 cooperative, appropriate for age. Pain: Complains of pain in "headache". Neuro: Level of Consciousness is awake, alert, obeys commands, Oriented to person, place, time, situation, Reports dizziness. Cardiovascular: Patient's skin is warm and dry. Respiratory: Airway is patent Respiratory effort is even, unlabored, Respiratory pattern is regular, symmetrical. GI: No signs and/or symptoms were reported involving the gastrointestinal system. Abdomen is round non-distended. : No signs and/or symptoms were reported regarding the genitourinary system. Musculoskeletal: Range of motion: intact in all extremities. 10:25 Reassessment: pt transport to CT with Germain Hobbs at this time via stretcher. tw2 12:00 Reassessment: Patient appears in no apparent distress at this time. No changes from tw2 previously documented assessment. Patient and/or family updated on plan of care and expected duration. Pain level reassessed. Patient is alert, oriented x 3, equal unlabored respirations, skin warm/dry/pink. 13:14 Reassessment: Patient appears in no apparent distress at this time. No changes from tw2 previously documented assessment. Patient and/or family updated on plan of care and expected duration. Pain level reassessed. Patient is alert, oriented x 3, equal unlabored respirations, skin warm/dry/pink. Vital Signs: 10:07 BP 151 / 54; Pulse 63; Resp 17; Temp 97.0(O); Pulse Ox 97% on R/A; Weight 76.2 kg; ll1 Height 4 ft. 11 in. (149.86 cm); Pain 4/10; 10:45 BP 151 / 67 Supine; Pulse 70; Resp 17; Pulse Ox 100% on R/A; tw2 10:45 BP 172 / 73 Sitting; Pulse 64; tw2 12:00 BP 174 / 79; Pulse 64; Resp 17; Pulse Ox 97% on R/A; tw2 13:13 BP 129 / 62; Pulse 61; Resp 17; Pulse Ox 95% on R/A; tw2 10:07 Body Mass Index 33.93 (76.20 kg, 149.86 cm) ll1 10:45 pt reports severe dizziness with sitting position. provider notified. did not attempt tw2 standing position at this time. ED Course: 09:51 Patient arrived in ED. as 09:52 Deyvi Capone MD is Private Physician. as 09:52 Alber Gomez DO is Private Physician. as 10:04 Benson Jordan MD is Attending Physician. rn 10:06 Arm band placed on Patient placed in an exam room, on a stretcher. ll1 10:07 La Nena Guidry, MIKI is Primary Nurse. tw2 10:09 Triage completed. ll1 10:09 Placed in gown. Bed in low position. Call light in reach. Adult w/ patient. Cardiac tw2 monitor on. Pulse ox on. NIBP on. Warm blanket given. 10:25 Inserted saline lock: 22 gauge in left antecubital area, using aseptic technique. Blood tw2 collected. 10:33 CT Head Brain wo Cont In Process Unspecified. EDMS 11:48 XRAY Chest (1 view) In Process Unspecified. EDMS 11:52 Brennan Benedict is Hospitalizing Provider. rn 14:31 No provider procedures requiring assistance completed. Patient admitted, IV remains in ap3 place. Administered Medications: 10:45 Drug: NS 0.9% 500 ml Route: IV; Rate: bolus; Site: left antecubital; tw2 11:30 Follow up: Response: No adverse reaction; IV Status: Completed infusion; IV Intake: tw2 500ml 11:02 Drug: Meclizine 50 mg Route: PO; tw2 13:14 Follow up: Response: No adverse reaction tw2 Intake: 11:30 IV: 500ml; Total: 500ml. tw2 Outcome: 11:52 Decision to Hospitalize by Provider. rn 14:31 Admitted to Med/surg accompanied by tech, via stretcher, with chart. ap3 14:31 Condition: good 14:31 Discharge instructions given to patient, family, Instructed on the need for admit, Demonstrated understanding of instructions. 14:32 Patient left the ED. ap3 Signatures: Dispatcher [employer] EDMelany Rangel Roman, MD MD rn Wise, Tara, RN RN tw2 Rika Tineo RN RN ap3 Maria Elena Drake RN RN ll1
--- NOTE | 2021-07-20 11:53 | EDPHYS ---
Physician Documentation [facility] Name: Melanie Lyons Age: 80 yrs Sex: Female : 1940 Arrival Date: 07/20/2021 Time: 09:51 Bed 4 Private MD: Deyvi Capone S; Patel, Mitesh ED Physician Benson Jordan HPI: 07/20 10:19 This 80 yrs old Female presents to ER via Wheelchair with complaints of rn Dizziness, Headache, Syncope. 10:19 The patient presents with dizziness, feeling faint, lightheadedness. Onset: The rn symptoms/episode began/occurred 5 day(s) ago. Context: occurred at home, occurred while the patient was at rest, just prior to the episode the patient experienced lightheadedness. Modifying factors: The symptoms are alleviated by lying down, the symptoms are aggravated by standing up, changing position. Associated signs and symptoms: Pertinent positives: headache, syncope, Pertinent negatives: abdominal pain, chest pain, diaphoresis, focal weakness, head injury, shortness of breath, vomiting. Severity of symptoms: At their worst the symptoms were moderate in the emergency department the symptoms have improved. The patient has not experienced similar symptoms in the past. The patient has been recently seen by a physician:. Patient reports dizziness/lightheaded/syncope over the last 5 days. Reports had a heart cath on and received 1 stent. Only new medication is aspirin and Plavix. Denies any sort of nitrates or change in blood pressure medication. Denies any chest pain. Reports mild shortness of breath during episodes of syncope. Denies worsening dizziness with movement of head. No seizure-like activity. Reports syncope several times a day today happened 3 times. Denies any trauma from syncope or fall. Historical: - Allergies: 10:06 PENICILLINS; ll1 10:06 Lisinopril; cough; ll1 - PMHx: 10:06 diabetes mellitus; Hypertensive disorder; Hypothyroidism; ll1 - PSHx: 10:06 Appendectomy; back; heart cath; ll1 - Immunization history:: Client reports having NOT received the Covid vaccine. Flu vaccine is not up to date. - Social history:: Smoking status: Patient denies any tobacco usage or history of. - Family history:: not pertinent. - Hospitalizations: : No recent hospitalization is reported. ROS: 10:20 Constitutional: Negative for fever, chills, and weight loss, Eyes: Negative for injury, rn pain, redness, and discharge, ENT: Negative for injury, pain, and discharge, Neck: Negative for injury, pain, and swelling, Cardiovascular: Negative for chest pain, palpitations, and edema, Respiratory: Negative for cough, wheezing, and pleuritic chest pain, Abdomen/GI: Negative for abdominal pain, nausea, vomiting, diarrhea, and constipation, Back: Negative for injury and pain, : Negative for injury, bleeding, discharge, and swelling, MS/Extremity: Negative for injury and deformity, Skin: Negative for injury, rash, and discoloration, Neuro: Negative for numbness, tingling, and seizure. Exam: 10:18 ECG was reviewed by the Attending Physician. rn 10:22 Constitutional: This is a well developed, well nourished patient who is awake, alert, rn and in no acute distress. Head/Face: Normocephalic, atraumatic. Eyes: Periorbital areas with no swelling, redness, or edema. Cardiovascular: Regular rate and rhythm. No pulse deficits. Respiratory: No increased work of breathing, no retractions or nasal flaring. Abdomen/GI: Soft, non-tender Skin: Warm, dry MS/ Extremity: Pulses equal, no cyanosis. Neuro: Awake and alert, GCS 15 Vital Signs: 10:07 BP 151 / 54; Pulse 63; Resp 17; Temp 97.0(O); Pulse Ox 97% on R/A; Weight 76.2 kg; ll1 Height 4 ft. 11 in. (149.86 cm); Pain 4/10; 10:45 BP 151 / 67 Supine; Pulse 70; Resp 17; Pulse Ox 100% on R/A; tw2 10:45 BP 172 / 73 Sitting; Pulse 64; tw2 12:00 BP 174 / 79; Pulse 64; Resp 17; Pulse Ox 97% on R/A; tw2 13:13 BP 129 / 62; Pulse 61; Resp 17; Pulse Ox 95% on R/A; tw2 10:07 Body Mass Index 33.93 (76.20 kg, 149.86 cm) ll1 10:45 pt reports severe dizziness with sitting position. provider notified. did not attempt tw2 standing position at this time. MDM: 10:04 Patient medically screened. rn 11:50 Differential diagnosis: cardiac arrhythmia, CVA, generalized weakness, rn hyperventilation, hypovolemia, idiopathic dizziness, syncope, vertigo. Data reviewed: vital signs, nurses notes, lab test result(s), EKG, radiologic studies, CT scan, and as a result, I will admit patient. Data interpreted: traffic monitor specialist: rate is 64 beats/min, rhythm is normal sinus rhythm, regular, with no ectopy, Interpretation: normal rate, normal rhythm, Pulse oximetry: on room air is 100 %. Interpretation: normal. Counseling: I had a detailed discussion with the patient and/or guardian regarding: the historical points, exam findings, and any diagnostic results supporting the discharge/admit diagnosis, lab results, radiology results, the need for further work-up and treatment in the hospital. Response to treatment: the patient's symptoms have mildly improved after treatment, and as a result, I will admit patient. Admission orders: after a detailed discussion of the patient's condition and case, the admit orders are written by me. ED course: Patient feels a little better after meclizine. No dizziness or recurrence of episode with moving and only when changing position. Did not tolerate orthostatic vital signs. Will admit to Dr. Benedict for further observation. 07/20 10:14 Order name: Basic Metabolic Panel rn 07/20 10:14 Order name: CBC with Diff; Complete Time: 10: 07/20 10:14 Order name: Magnesium; Complete Time: : 07/20 10:14 Order name: Protime (+inr); Complete Time: : 07/20 10:14 Order name: Ptt, Activated; Complete Time: : 07/20 10:14 Order name: Troponin (emerg Dept Use Only); Complete Time: 11:34 rn 07/20 10:14 Order name: CT Head Brain wo Cont; Complete Time: : 07/20 10:14 Order name: Basic Metabolic Panel; Complete Time: 11:34 EDW[place] 07/20 10:20 Order name: BNP 07/20 10:21 Order name: NT PRO-BNP [facility] 07/20 10:22 Order name: XRAY Chest (1 view) 07/20 11:57 Order name: COVID-19 SARS RT PCR (Document "Date of Onset" if Symptomatic) bd 07/20 10:14 Order name: EKG; Complete Time: 10:15 rn 07/20 10:14 Order name: Cardiac monitoring; Complete Time: 10:16 rn 07/20 10:14 Order name: EKG - Nurse/Tech; Complete Time: 10:16 rn 07/20 10:14 Order name: IV Saline Lock; Complete Time: : rn 07/20 10:14 Order name: Labs collected and sent; Complete Time: : rn 07/20 10:14 Order name: O2 Per Protocol; Complete Time: 10: rn 07/20 10:14 Order name: O2 Sat Monitoring; Complete Time: : rn EC:18 Rate is 64 beats/min. Rhythm is regular. QRS [place] is Normal. [place] interval is normal. QRS rn interval is normal. QT interval is normal. No Q waves. T waves are Normal. No ST changes noted. Clinical impression: Normal ECG. Interpreted by me. Reviewed by me. Administered Medications: 10:45 Drug: NS 0.9% 500 ml Route: IV; Rate: bolus; Site: left antecubital; tw2 11:30 Follow up: Response: No adverse reaction; IV Status: Completed infusion; IV Intake: tw2 500ml 11:02 Drug: Meclizine 50 mg Route: PO; tw2 13:14 Follow up: Response: No adverse reaction tw2 Disposition Summary: 07/20/21 11:52 Hospitalization Ordered Hospitalization Status: Observation rn Provider: Brennan Benedict rn Location: Telemetry/MedSurg (observation) rn Condition: Stable rn Problem: new rn Symptoms: are unchanged rn Bed/Room Type: Standard rn Room Assignment: 202(07/20/21 14:15) dw Diagnosis - Syncope and collapse rn - Dizziness and giddiness rn Forms: - Medication Reconciliation Form rn - SBAR form rn Signatures: Dispatcher [employer] Sofia Brown RN RN Benson Coy MD MD rn Wise, Tara, RN RN tw2 Maria Elena Drake RN RN ll1 Corrections: (The following items were deleted from the chart) 10:21 10:19 Patient reports dizziness/lightheaded/syncope over the last 5 days. 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 Only new medication is aspirin and Plavix. Denies any sort of nitrates or change in blood pressure medication. Denies any chest pain.. rn 10:22 10:20 Constitutional: Negative for fever, chills, and weight loss, Eyes: Negative for rn injury, pain, redness, and discharge, ENT: Negative for injury, pain, and discharge, Neck: Negative for injury, pain, and swelling, Cardiovascular: Negative for chest pain, palpitations, and edema, Respiratory: Negative for shortness of breath, cough, wheezing, and pleuritic chest pain, Abdomen/GI: Negative for abdominal pain, nausea, vomiting, diarrhea, and constipation, Back: Negative for injury and pain, : Negative for injury, bleeding, discharge, and swelling, MS/Extremity: Negative for injury and deformity, Skin: Negative for injury, rash, and discoloration, Neuro: Negative for numbness, tingling, and seizure, rn 11:03 10:14 Orthostatics ordered. rn tw2 14:15 11:52 rn dw
--- NOTE | 2021-07-20 12:07 | RAD REPORT ---
EXAM DESCRIPTION: Kasi Single View07/20/2021 11:48 am CLINICAL HISTORY: Shortness of breath COMPARISON: June 2021 FINDINGS: The lungs appear clear of acute infiltrate. The heart is mildly enlarged IMPRESSION: No acute abnormalities displayed
[2021-07-20 14:40] VITALS: O2SAT 95
--- NOTE | 2021-07-20 15:31 | P.HP ---
Certification for Inpatient Patient admitted to: Observation With expected LOS: <2 Midnights Practitioner: I am a practitioner with admitting privileges, knowledge of patient current condition, hospital course, and medical plan of care. Services: Services provided to patient in accordance with Admission requirements found in Title 42 Section 412.3 of the Code of Federal Regulations Patient History Date of Service: 07/20/21 Reason for admission: Dizziness and faint feeling History of Present Illness: 80-year-old woman with a history of coronary artery disease, recent cardiac catheterization with stent of RCA 1 week ago presented to the emergency department with a complaint of dizziness and feeling faint. Patient also report increased lower extremity swelling. She denies shortness of breath or chest but endorsed headache. Patient's systolic blood pressure noted to be in the 170s. Initial troponin negative, chest x-ray showed no acute disease, EKG unremarkable. The ED provider is concerned patient just had a recent cardiac catheterization with PCI and she is planned for another PCI within 1 month and her symptoms could be angina equivalent. Patient hospitalized for further management. Allergies Penicillins Allergy (Verified 07/13/21 11:38) Itching Home Medications: Aspirin [Aspirin EC 81 MG] 81 mg PO DAILY #30 tablet. 07/15/21 Clopidogrel Bisulfate [Plavix] 75 mg PO DAILY #30 tablet 07/15/21 - Past Medical/Surgical History -: Coronary artery disease -: Diabetes mellitus -: Hypertension -: Hypothyroidism -: Cardiac catheterization with PCI - Family History Father -: Diabetes - Social History Smoking Status: Never smoker Alcohol use: No CD- Drugs: No Caffeine use: No Review of Systems Other: Except as documented, all other systems reviewed and negative. Physical Examination - Vital Signs Temperature: 97.0 F Blood Pressure: 129/62 Pulse: 61 Respirations: 17 - Physical Exam General: Alert, In no apparent distress, Oriented x3 HEENT: PERRLA, Mucous membr. moist/pink, Sclerae nonicteric Neck: Supple, JVD not distended Respiratory: Clear to auscultation bilaterally, Normal air movement Cardiovascular: Regular rate/rhythm, Normal S1 S2, No murmurs, Edema (Mild edema right wrist) Gastrointestinal: Normal bowel sounds, Soft and benign, Non-distended, No tenderness Musculoskeletal: No swelling, No tenderness Integumentary: No rashes, No cyanosis Neurological: Normal speech, Normal strength at 5/5 x4 extr, Cranial nerves 3-12 intact Lymphatics: No axilla or inguinal lymphadenopathy - Studies Laboratory Data (last 24 hrs) 07/20/21 10:25: PT 9.8, INR 0.85, APTT 30.8 07/20/21 10:25: WBC 6.10, Hgb 10.6 L, Hct 32.0 L, Plt Count 282 07/20/21 10:25: Sodium 139, Potassium 4.2, BUN 22 H, Creatinine 1.14, Glucose 140 H, Magnesium 2.0 Assessment and Plan - Problems (Diagnosis) (1) Dizziness Current Visit: Yes Status: Acute (2) Accelerated hypertension Current Visit: Yes Status: Acute (3) Coronary artery disease Current Visit: Yes Status: Acute (4) Diabetes mellitus type 2 in obese Current Visit: Yes Status: Acute (5) Hypothyroidism Current Visit: Yes Status: Acute - Plan Place patient under observation. Continue to trend troponin. Blood pressure control with home antihypertensives. Hydralazine p.r.n. for BP spikes. Aspirin, Plavix. Lipitor Cardiology Consult. Insulin sliding scale for glucose management. Check orthostatics vitals. - Advance Directives Does patient have a Living Will: No Does patient have a Durable POA for Healthcare: No
[2021-07-20] MEDS ORDERED: ACETAMINOPHEN 500 MG TAB PO PRN (16:26)
[2021-07-20] MEDS ORDERED: NITROGLYCERIN 0.4 MG/TAB SL PRN (16:26)
[2021-07-20 16:37] VITALS: BMI 54.1
[2021-07-21 06:03] LABS: Absolute Lymphocytes (CBC) 1.8 K/uL (0.7-4.9); Basophils % 0.7 % (0-1.3); Hematocrit 30.9 % (36.0-45.0); Lymphocytes % 30.9 % (15.3-44.8); MPV 7.9 fL (7.6-11.3); RBC Red Blood Cell Count 3.89 M/uL (3.86-4.86)
[2021-07-21 06:06] LABS: Potassium 4.1 mmol/L (3.5-5.1)
[2021-07-21] MEDS: ENOXAPARIN 30 MG/0.3 ML SQ SCH (10:33)
[2021-07-21] MEDS: ASPIRIN EC 81 MG TAB PO SCH (10:33)
--- NOTE | 2021-07-21 12:26 | P.DS ---
Admission Date: 07/20/21 Discharge Date: 07/22/21 Disposition: ROUTINE DISCHARGE Discharge Condition: FAIR Reason for Admission: Dizziness and faint feeling - Problems (1) Dizziness Status: Acute (2) Accelerated hypertension Status: Acute (3) Coronary artery disease Status: Acute (4) Diabetes mellitus type 2 in obese Status: Acute (5) Hypothyroidism Status: Acute (6) Pulmonary embolism Status: Acute Brief History of Present Illness: 80-year-old woman with a history of coronary artery disease, recent cardiac catheterization with stent of RCA 1 week ago presented to the emergency department with a complaint of dizziness and feeling faint. Patient also report increased lower extremity swelling. She denies shortness of breath or chest but endorsed headache. Patient's systolic blood pressure noted to be in the 170s. Initial troponin negative, chest x-ray showed no acute disease, EKG unremarkable. The ED provider is concerned patient just had a recent cardiac catheterization with PCI and she is planned for another PCI within 1 month and her symptoms could be angina equivalent. Patient hospitalized for further management. Hospital Course: Patient placed under observation on the medical floor. Troponin trended negative. Orthostatic vitals checked also negative. Patient denied any chest pain or shortness of breath. Case discussed with Dr. Capone who stated patient is planned for another PCI within 1 month and no intervention at this time. Patient seen by Dr. Rico who ordered D-dimer. D-dimer was elevated, CTA PE demonstrated small clot in the right upper lobe. Patient started on Eliquis anticoagulation. She mentions she was diagnosed with pulmonary embolism several months ago. She stopped anticoagulation because she saw blood in stool. She reports a prior history of diverticulosis by colonoscopy. Her hemoglobin has been stable. Patient not actively bleeding. Plan is to retry anticoagulation with Eliquis for the PE. She is informed to stop the Eliquis if she sees blood in her stool. She has been given referral to follow with Dr. Claire for further evaluation for history of GI bleed. Patient discharged to follow with Dr. Rico as scheduled. Vital Signs/Physical Exam: Temp Pulse Resp BP Pulse Ox 97.3 F 68 18 128/62 98 07/21/21 08:00 07/21/21 08:00 07/21/21 08:00 07/21/21 08:00 07/21/21 08:00 General: Alert, In no apparent distress, Oriented x3 HEENT: Mucous membr. moist/pink Neck: Supple, JVD not distended Respiratory: Clear to auscultation bilaterally, Normal air movement Cardiovascular: No edema, Regular rate/rhythm, Normal S1 S2 Gastrointestinal: Soft and benign, Non-distended, No tenderness Musculoskeletal: No swelling Laboratory Data at Discharge: WBC 5.90 K/uL (4.3-10.9) 07/21/21 05:25 Hgb 10.3 g/dL (12.0-15.0) L 07/21/21 05:25 Hct 30.9 % (36.0-45.0) L 07/21/21 05:25 Plt Count 263 K/uL (152-406) 07/21/21 05:25 PT 9.8 SECONDS (9.5-12.5) 07/20/21 10:25 INR 0.85 07/20/21 10:25 APTT 30.8 SECONDS (24.3-36.9) 07/20/21 10:25 Sodium 141 mmol/L (136-145) 07/21/21 05:25 Potassium 4.1 mmol/L (3.5-5.1) 07/21/21 05:25 BUN 17 mg/dL (7-18) 07/21/21 05:25 Creatinine 1.05 mg/dL (0.55-1.3) 07/21/21 05:25 Glucose 118 mg/dL (74-106) H 07/21/21 05:25 Magnesium 2.0 mg/dL (1.8-2.4) 07/20/21 10:25 Troponin I < 0.02 ng/mL (0.0-0.045) 07/20/21 20:17 Home Medications: Aspirin [Aspirin EC 81 MG] 81 mg PO DAILY #30 tablet. 07/15/21 Clopidogrel Bisulfate [Plavix*] 75 mg PO DAILY #30 tablet 07/15/21 Levothyroxine [Synthroid*] 50 mcg PO [id number] 07/20/21 Metformin HCl [Glucophage*] 1 tab PO DAILY 07/20/21 Metoprolol Tartrate [Lopressor*] 25 mg PO DAILY 07/20/21 Pravastatin Sodium 10 mg PO DAILY 07/20/21 Trazodone HCl [Desyrel] 100 mg PO BEDTIME 07/20/21 Apixaban [Eliquis] 5 mg PO BID #60 tablet 07/22/21 New Medications: Apixaban [Eliquis] 5 mg PO BID #60 tablet Diet: ADA Activity: Fall precautions Followup: Alber Gomez DO [Primary Care Provider] - (Call to schedule appointment.) Etienne Rico MD [ACTIVE - CAN ADMIT] - (Within 2-4 weeks ) Kelvin Claire MD [ASSOCIATE-ACTIVE - CAN ADMIT] - 1-2 Weeks Time spent managing pt's care (in minutes): 38
--- NOTE | 2021-07-21 16:23 | RAD REPORT ---
EXAM DESCRIPTION: CT - Chest For Pe Angio - 07/21/2021 4:09 pm CLINICAL HISTORY: Rule out PE COMPARISON: No comparisons FINDINGS: Chest Wall: No suspicious thyroid nodules or pathologic lymphadenopathy. Lungs: No acute abnormality. Pleura: No significant effusions or pneumothorax. Mediastinum/skinny: No pathologic lymphadenopathy. Pulmonary arteries/Aorta: Nonocclusive right upper lobe segmental size thrombus. Overall clot burden is small. No aortic aneurysm. Heart: No significant pericardial effusion. Normal heart size. Upper abdomen: No acute abnormality. Small hiatal hernia. Bones: No acute abnormality. Multilevel degenerative changes are present in the spine. All CT scans are performed using dose optimization technique as appropriate and may include automated exposure control or mA/KV adjustment according to patient size. IMPRESSION: Positive for pulmonary embolism with small clot burden. No other acute findings are pres ent within the lungs.
--- NOTE | 2021-07-21 19:50 | P.PN ---
Subjective Date of Service: 07/21/21 Chief Complaint: Dizziness and faint feeling Patient complains of persistent dizziness. Blood pressure moderately elevated. Physical Examination - Vital Signs Temperature: 97.6 F Blood Pressure: 175/66 Pulse: 64 Respirations: 18 Pulse Ox (%): 96 - Physical Exam General: Alert, In no apparent distress, Oriented x3 HEENT: Mucous membr. moist/pink Neck: Supple, JVD not distended Respiratory: Clear to auscultation bilaterally, Normal air movement Cardiovascular: No edema, Regular rate/rhythm, Normal S1 S2 Gastrointestinal: Soft and benign, Non-distended Musculoskeletal: No swelling Integumentary: No rashes Neurological: Normal strength at 5/5 x4 extr Assessment And Plan - Current Problems (Diagnosis) (1) Dizziness Current Visit: Yes Status: Acute (2) Accelerated hypertension Current Visit: Yes Status: Acute (3) Coronary artery disease Current Visit: Yes Status: Acute (4) Diabetes mellitus type 2 in obese Current Visit: Yes Status: Acute (5) Hypothyroidism Current Visit: Yes Status: Acute - Plan Troponin trended negative Cardiology input appreciated. Patient D-dimer elevated. CTA thorax showed PE with small clot burden. Patient started on full dose Lovenox Continue aspirin and Plavix Hydralazine p.r.n. for BP spikes. Lipitor Insulin sliding scale for glucose management. She is not orthostatic. Transition to [facility] for discharge in a.m.
[2021-07-21] MEDS ORDERED: HYDRALAZINE HCL 20 MG/ML VIAL IV PRN (19:54)
[2021-07-21] MEDS: MORPHINE 4 MG/ML SYR IV PRN (20:16)
--- NOTE | 2021-07-21 20:16 | CON ---
Date of Consultation: 07/21/2021 Reason For Consultation: Dizziness. History Of Present Illness: An 80-year-old female, history of coronary artery disease, recent cardia c catheterization, status post PCI of the RCA, presented with dizziness and faint feeling like especi ally when she gets up from sitting to standing or from lying down to sitting. No chest pain. No serena rtness of breath. No palpitations. She just feels lightheaded. Lasts for few minutes and goes away . Past Medical History: Coronary artery disease, diabetes, hypertension, hypothyroidism. Medications: Refer reconciliation sheet for detailed list. Allergies: PENICILLINS. Social History: She does not smoke or drink. Does not use drugs. Family History: No premature coronary artery disease or cancer. Review of Systems: All systems reviewed and negative except mentioned in HPI. Physical Examination: Vital Signs: Reviewed. Head and Neck: Pupils are equal, reactive to light. Intact eye movements. No JVD. No swelling. Neck: Supple. Thyroid is not enlarged. Lungs: Clear to auscultation bilaterally. No rhonchi, rales, or crackles. No accessory muscle use. Heart: Regular rate and rhythm. No extra sounds. Abdomen: Soft, nontender. Bowel sounds positive. No organomegaly. No masses or hernia. No rigidi ty or rebound. Extremities: No edema, clubbing cyanosis. Intact pulses. Skin: No rash. Neurologic: Alert, awake, oriented x3. No acute infiltrate. Investigations: Cardiac enzymes are negative. Hemoglobin is 10.6. Assessment And Recommendations: Dizziness, likely orthostatic hypotension. Please perform orthostat ics on her and check D-dimer. Also obtain an echocardiogram and further plan accordingly. Meanwhile , I recommend to hold off on antihypertensive medications till we further evaluate status for dizzine ss. Please make sure the D-dimer is negative. SR/MODL Voice ID: [id number] Report ID: [id number]
[2021-07-22] MEDS: MORPHINE 4 MG/ML SYR IV PRN ×2 (01:11→06:00)
[2021-07-22] MEDS ORDERED: LEVOTHYROXINE SOD 0.05 MG TABLET PO SCH (06:00)
[2021-07-22 06:05] LABS: Absolute Lymphocytes (CBC) 1.9 K/uL (0.7-4.9); Basophils % 0.9 % (0-1.3); Lymphocytes % 33.1 % (15.3-44.8)
[2021-07-22] MEDS: ENOXAPARIN 30 MG/0.3 ML SQ SCH (08:51)
[2021-07-22] MEDS: ASPIRIN EC 81 MG TAB PO SCH (08:52)
[2021-07-22] MEDS ORDERED: ATORVASTATIN 10 MG TAB PO SCH (09:00)
[2021-07-22] MEDS ORDERED: METOPROLOL TAR 25 MG TAB PO SCH (09:00)
[2021-07-22] MEDS ORDERED: CLOPIDOGREL 75 MG TABLET PO SCH (09:00)
[2021-07-22] MEDS ORDERED: APIXABAN 5 MG TABLET PO SCH ×2 (09:05→21:00)
[2021-07-22 12:31] VITALS: BP 161/67; TEMP 97
== END 2021-07-22 13:45 | disposition home or self-care (01) | DRG 149 ==
LOC: ER 09:50 → ERHOLD 12:01 → 2ND 14:26 → OBSVTOIN 07-22 07:54
PROVIDERS: ADMIT Internal Medicine; ATTEND Internal Medicine
DX: R42 Dizziness and giddiness (principal); I26.99 Other pulmonary embolism without acute cor pulmonale; I10 Essential (primary) hypertension; I25.10 Atherosclerotic heart disease of native coronary artery without angina pectoris; E11.9 Type 2 diabetes mellitus without complications; E03.9 Hypothyroidism, unspecified; Z88.0 Allergy status to penicillin; Z95.5 Presence of coronary angioplasty implant and graft; Z20.822 Contact with and (suspected) exposure to COVID-19
CPT/HCPCS: 36415; 70450; 71045; 71275; 80048; 83735; 83880; 84484; 85025; 85379; 85610; 85730; 93005; 96360; 99285; G0378; J1650; J7040; Q9967; U0003

== ENCOUNTER 2021-08-22 12:00 | Day surgery (SDC) | payer OTHER ==
[2021-08-18 12:01] LABS: Absolute Lymphocytes (CBC) 1.7 K/uL (0.7-4.9); Basophils % 0.7 % (0-1.3); Lymphocytes % 29.4 % (15.3-44.8); MPV 8.4 fL (7.6-11.3); RBC Red Blood Cell Count 4.35 M/uL (3.86-4.86)
[2021-08-18 12:06] LABS: Protime INR 0.86
[2021-08-18 12:10] LABS: Potassium 4.9 mmol/L (3.5-5.1)
[2021-08-22] MEDS ORDERED: NA CHLORIDE 0.9% 500 ML ONE (12:36)
[2021-08-22] MEDS ORDERED: HEPA 1000U/500MLS 2,000 UNIT/1,000 ML BAG IV ONE (13:47)
[2021-08-22] MEDS ORDERED: FENTANYL CITR 100 MCG/2 ML ONE (13:47)
[2021-08-22] MEDS ORDERED: MIDAZOLAM HCL 2 MG/2 ML INJ ONE (13:47)
[2021-08-22] MEDS ORDERED: HEPARIN 5000 UNIT/ML 1 ML VIAL ONE (13:48)
[2021-08-22] MEDS ORDERED: VERAPAMIL HCL 10 MG/4 ML VIAL IV ONE (13:48)
[2021-08-22] MEDS ORDERED: ATROPINE SULF 1 MG/10 ML SYR IV ONE (13:48)
[2021-08-22] MEDS ORDERED: CLOPIDOGREL 75 MG TABLET ONE (14:30)
--- NOTE | 2021-08-22 15:33 | OP ---
Date of Procedure: 08/22/2021 Surgeon: RONNIE LOCKWOOD Procedures Performed: 1.Selective coronary angiogram. 2.Percutaneous coronary intervention of severe proximal OM stenosis using 2.5 x 20 mm Synergy drug-e luting stent post dilated to 2.75 size. Access: Right femoral artery closed with 6-Bur[place] Angio-Seal. Complications: None. Bleeding: Less than 10 mL. Description Of Procedure: After risks, benefits, and alternatives were explained, the patient agreed to the procedure and signed informed consent. The patient was brought into the cardiac catheterizat ion laboratory, prepped and draped in usual sterile fashion. Then, I accessed right femoral artery u sing ultrasound guidance, micropuncture kit and fluoroscopy guidance with a 6-[place] sheath and took a 6-Bur[place] XB left 3.5 guide into the aortic root, engaged the left main and then gave a sys temic heparin to assure ACT level above 250 and then took short Run-Through wire into left main and t hen left circumflex and placed it in the distal OM. Lesion was pre-dilated using 2.5 x 50 mm Complia nt balloon to high pressure and then placed 2.5 x 20 mm Synergy drug-eluting stent with good appositi on and 0% residual stenosis. No complication. Wire was removed. Final angiogram was satisfactory. Then, I exchanged for 6-[place] JR4 catheter and engaged the RCA, took standard views, and then remov ed the catheter, and the sheath was removed to place a 6-[place] Angio-Seal with good hemostasis. Findings: 1.Left main is large and normal. 2.LAD; moderate-sized and normal. Diagonal 1 branch has 60% ostial and proximal stenosis with RIKI- 3 flow. The OM1 branch has 90% proximal stenosis extending from the mid left circumflex, status post successful PCI as above. 3.RCA; patent, proximal stent and then diffuse 40% to 50% stenosis throughout the vessel and to the bifurcation with RIKI-3 flow. Conclusion: 1.Severe proximal OM stenosis, status post successful PCI as above. 2.Patent RCA stent and moderate coronary artery disease elsewhere. Plan: Aspirin, Plavix, and statin. Follow up with me in the office in 6 weeks. SR/MODL Voice ID: [id number] Report ID: [id number]
[2021-08-22 15:44] VITALS: TEMP 97.1
[2021-08-22 17:31] VITALS: BP 167/64; O2SAT 100
== END 2021-08-22 17:50 | disposition home or self-care (01) ==
LOC: CCL 12:00
PROVIDERS: ATTEND Internal Medicine
DX: I25.10 Atherosclerotic heart disease of native coronary artery without angina pectoris (principal); I10 Essential (primary) hypertension; E78.5 Hyperlipidemia, unspecified; E11.9 Type 2 diabetes mellitus without complications; Z95.5 Presence of coronary angioplasty implant and graft; Z88.0 Allergy status to penicillin; Z20.822 Contact with and (suspected) exposure to COVID-19
CPT/HCPCS: 93005; 85025; 80048; 36415; 85610; 82947; 85347; 85730; U0003; C1893; C1760; C1725; C9600; J1644 ×2; J2250; J3010; J7040

== ENCOUNTER 2021-10-24 10:30 | Day surgery (SDC) | payer OTHER ==
[2021-10-21 16:22] LABS: Absolute Lymphocytes (CBC) 1.6 K/uL (0.7-4.9); Hematocrit 36.4 % (36.0-45.0); Lymphocytes % 21.1 % (15.3-44.8); MPV 8.1 fL (7.6-11.3)
[2021-10-21 16:31] LABS: Protime INR 0.89
[2021-10-21 16:35] LABS: Potassium 4.3 mmol/L (3.5-5.1)
[2021-10-24] MEDS ORDERED: NA CHLORIDE 0.9% 500 ML ONE (10:57)
[2021-10-24] MEDS ORDERED: HEPA 1000U/500MLS 2,000 UNIT/1,000 ML BAG IV ONE (11:19)
[2021-10-24] MEDS ORDERED: FENTANYL CITR 100 MCG/2 ML ONE (11:27)
[2021-10-24] MEDS ORDERED: MIDAZOLAM HCL 2 MG/2 ML INJ ONE (11:28)
[2021-10-24] MEDS ORDERED: HEPARIN 5000 UNIT/ML 1 ML VIAL ONE (11:28)
[2021-10-24 11:29] VITALS: TEMP 98.3
[2021-10-24] MEDS ORDERED: VERAPAMIL HCL 10 MG/4 ML VIAL IV ONE (11:29)
[2021-10-24] MEDS ORDERED: NITROGLYCERIN 100 MCG/ML SYR (for cath lab use only) IV ONE (11:29)
[2021-10-24] MEDS ORDERED: ATROPINE SULF 1 MG/10 ML SYR IV ONE (11:29)
--- NOTE | 2021-10-24 11:35 | EKG ---
Test Date: 2021-10-21 Test Time: 15:28:37 Digital Music Instructor: JAMMIE MEASUREMENT RESULTS: Intervals: Rate: 62 AL: 168 QRSD: 78 QT: 446 QTc: 452 [place]: P: 50 AL: 168 QRS: 16 T: 39 INTERPRETIVE STATEMENTS: Normal sinus rhythm Normal ECG Compared to ECG 08/18/2021 10:52:45 ST (T wave) deviation no longer present Electronically Signed On 10-24-21 11:30:48 SLABBER LIGHT by Deyvi Capone
[2021-10-24] MEDS ORDERED: HYDRALAZINE HCL 20 MG/ML VIAL ONE (13:01)
[2021-10-24 16:32] VITALS: BP 127/55; O2SAT 100
--- NOTE | 2021-10-24 17:13 | OP ---
Date of Procedure: 10/24/2021 Surgeon: RONNIE LOCKWOOD Procedure Performed: Peripheral angiogram with runoff. Indication: PAD by Doppler. Access: Right femoral artery 4-Greek closed with manual pressure. Complications: None. Bleeding: Less than 10 mL. Description Of Procedure: After risks, benefits, and alternatives were explained, the patient agreed to procedure and signed informed consent. The patient was brought into the cardiac catheterization laboratory, prepped and draped in usual sterile fashion. Then, I accessed right femoral artery using ultrasound guidance and micropuncture kit and placed 4-Greek [place] sheath. Then, I took a 4-[facility] pigtail catheter into the aorta, performed distal aortogram with runoff. Then, I removed the cat heter and sheath was removed. Manual pressure was applied with good hemostasis. Findings: 1.Distal aorta is patent. No disease. 2.Bilateral iliac arteries are free of disease, totally patent. 3.Bilateral femoral arteries, common femoral arteries are patent. No significant disease. 4.Bilateral SFAs have diffuse 30% to 40% stenosis. 5.Bilateral profunda are patent without significant disease. 6.Ncyoj-eez-ijzd on the right, there is a severe distal posterior tibial artery stenosis; however, t here were collaterals from the other 2 arteries with good perfusion all the way to the toes and on th e left side, there is occlusion of the distal left anterior tibial artery; however, also there are go od collaterals and blood flow from the arteries all the way to the toes. Conclusion: Moderate peripheral vascular disease. Plan: Medical management. /CAROLL Voice ID: [id number] Report ID: [id number]
== END 2021-10-24 17:31 | disposition home or self-care (01) ==
LOC: CCL 10:30
PROVIDERS: ATTEND Internal Medicine
DX: I70.203 Unspecified atherosclerosis of native arteries of extremities, bilateral legs (principal); I25.10 Atherosclerotic heart disease of native coronary artery without angina pectoris; I10 Essential (primary) hypertension; E78.5 Hyperlipidemia, unspecified; E11.9 Type 2 diabetes mellitus without complications; Z88.0 Allergy status to penicillin; Z20.822 Contact with and (suspected) exposure to COVID-19
CPT/HCPCS: 93005; 85025; 80048; 36415; 85610; 82947; 85730; 36200; 75630; U0003; C1893; J0360; J1644 ×2; J2250; J3010; J7040

== ENCOUNTER 2021-12-01 06:00 | Day surgery (SDC) | payer OTHER ==
[2021-11-30 14:38] LABS: Protime INR 0.94
[2021-11-30 14:41] LABS: Potassium 4.5 mmol/L (3.5-5.1)
[2021-11-30 14:49] LABS: Absolute Lymphocytes (CBC) 2.1 K/uL (0.7-4.9); Hematocrit 32.3 % (36.0-45.0); Lymphocytes % 23.4 % (15.3-44.8); MPV 8.5 fL (7.6-11.3)
[2021-12-01] MEDS ORDERED: NA CHLORIDE 0.9% 500 ML ONE (06:18)
[2021-12-01] MEDS ORDERED: FENTANYL CITR 100 MCG/2 ML ONE (06:34)
[2021-12-01] MEDS ORDERED: LIDOCAINE 1% 20 ML MDV ONE (06:34)
[2021-12-01] MEDS ORDERED: HEPA 1000U/500MLS 2,000 UNIT/1,000 ML BAG IV ONE (06:34)
[2021-12-01] MEDS ORDERED: MIDAZOLAM HCL 2 MG/2 ML INJ ONE (06:34)
[2021-12-01] MEDS ORDERED: HEPARIN 10,000 UNIT/10 ML VIAL IV ONE (06:36)
[2021-12-01] MEDS ORDERED: ATROPINE SULF 1 MG/10 ML SYR IV ONE (06:36)
[2021-12-01 07:04] VITALS: TEMP 97.6
--- NOTE | 2021-12-01 08:43 | OP ---
Date of Procedure: 12/01/2021 Surgeon: RONNIE LOCKWOOD Procedures Performed: 1.Selective coronary angiogram. 2.Left heart catheterization. Indication: Unstable angina. Access: Right femoral artery 6-S[place] Arabian closed with StarClose and manual pressure. Complications: None. Bleeding: Less than 20 mL. Description Of Procedure: After risks, benefits, and alternatives were explained, the patient agreed to procedure and signed informed consent. The patient was brought into the cardiac catheterization laboratory, prepped and draped in usual sterile fashion. Given Versed and fentanyl in incremental do ses to achieve adequate moderate sedation. Then, we accessed right femoral artery using a micropunct ure kit and ultrasound and fluoroscopy, placed 8-[place] sheath and took a 6-Saudi Arabian JR4 darren [address] into the aortic root, engaged the RCA, took standard views, exchanged for a 6-[place] JL4 catheter and took standard views engaging the left main and then the JR4 catheter was advanced over the wire into the LV. LVEDP was measured and pullback did not record significantly gradients. Then, I remove d the catheter and sheath. StarClose was used for closure and then manual pressure. Findings: 1.Left main is large and normal. 2.LAD; moderate-sized vessel with luminal irregularities and diagonal branch has stable chronic 60% stenosis. 3.Left circumflex; moderate-sized with widely patent proximal stent. 4.RCA is large dominant with widely patent proximal stent. 5.LVEDP of 11 mmHg. Conclusion: 1.Patent stents of the left circumflex and RCA. No significant disease otherwise. 2.Borderline LVEDP at 11 to 12 mmHg. Plan: Medical management. SR/MODL Voice ID: [id number] Report ID: [id number]
[2021-12-01] MEDS ORDERED: HYDRALAZINE HCL 20 MG/ML VIAL ONE (13:06)
[2021-12-01] MEDS ORDERED: ACETAMINOPHEN 325 MG TABLET ONE (15:31)
[2021-12-01 17:40] VITALS: BP 154/67; O2SAT 96
--- NOTE | 2021-12-05 08:36 | EKG ---
Test Date: 2021-11-30 Test Time: 12:42:56 High Value Associate: JOE MEASUREMENT RESULTS: Intervals: Rate: 54 VT: 142 QRSD: 74 QT: 456 QTc: 432 [place]: P: 45 VT: 142 QRS: 3 T: 41 INTERPRETIVE STATEMENTS: Sinus bradycardia Otherwise normal ECG Compared to ECG 10/21/2021 15:28:37 Sinus rhythm no longer present Electronically Signed On 12-05-21 08:24:43 CDT by Deyvi Capone
== END 2021-12-01 18:17 | disposition home or self-care (01) ==
LOC: CCL 06:00
PROVIDERS: ATTEND Internal Medicine
DX: I25.110 Atherosclerotic heart disease of native coronary artery with unstable angina pectoris (principal); Z95.5 Presence of coronary angioplasty implant and graft; Z88.0 Allergy status to penicillin; Z20.822 Contact with and (suspected) exposure to COVID-19
CPT/HCPCS: 93005; 85025; 80048; 36415; 85610; 82947 ×2; 85730; 93458; 76937; U0003; C1893; J0360; J2250; J3010; J7040; J1644

== ENCOUNTER 2021-12-05 19:42 | Observation (INO) | payer OTHER ==
[2021-12-05 21:14] LABS: Absolute Lymphocytes (CBC) 1.9 K/uL (0.7-4.9); Hematocrit 34.8 % (36.0-45.0); Lymphocytes % 23.7 % (15.3-44.8); MPV 8.3 fL (7.6-11.3); RBC Red Blood Cell Count 4.61 M/uL (3.86-4.86)
[2021-12-05 21:23] LABS: Potassium 4.2 mmol/L (3.5-5.1)
--- NOTE | 2021-12-05 21:25 | RAD REPORT ---
EXAM DESCRIPTION: RAD - Chest Single View - 12/05/2021 9:01 pm CLINICAL HISTORY: CHEST PAIN Chest pain. COMPARISON: Chest Single View dated 07/20/2021; Chest Pa And Lat (2 Views) dated 07/13/2021; Chest Si ngle View dated 05/14/2021; Chest Pa And Lat (2 Views) dated 05/04/2021 FINDINGS: Portable technique limits examination quality. The lungs are grossly clear. The heart is upper limit of normal in size. No displaced fractures.
[2021-12-05 21:28] LABS: Troponin High Sensitivity 9.7 pg/mL (<58.9)
--- NOTE | 2021-12-05 21:59 | ER ---
Nurse's Notes [facility] Name: Melanie Lyons Age: 81 yrs Sex: Female : 1940 Arrival Date: 12/05/2021 Time: 19:46 Bed 5 Private MD: Alber Gomez Diagnosis: Chest pain, unspecified Presentation: 12/05 19:50 Chief complaint: Patient's son or daughter states: "For a few weeks she's been feeling vc1 short of breath and some chest tightness, I took her to [place] yesterday, they diagnosed her with Pulmonary Edema, she has [address] Rico did a heart cath. They ordered her lasix but it won't be ready until tomorrow.". Coronavirus screen: Vaccine status: Patient reports being unvaccinated. cough unrelated to allergies, difficulty breathing, shortness of breath, Client presents with at least one sign or symptom that may indicate coronavirus-19. Standard/surgical mask placed on the client. Provider contacted for isolation considerations. The client reports previous COVID testing was negative. Date of collection: November 30, 2021. Ebola Screen: No symptoms or risks identified at this time. Initial Sepsis Screen: Does the patient meet any 2 criteria? RR > 20 per min. No. Patient's initial sepsis screen is negative. Does the patient have a suspected source of infection? No. Patient's initial sepsis screen is negative. Risk Assessment: Do you want to hurt yourself or someone else? Patient reports no desire to harm self or others. Onset of symptoms is unknown. 19:50 Method Of Arrival: Wheelchair vc1 19:50 Acuity: VIRAL 3 vc1 Triage Assessment: 19:59 General: Appears in no apparent distress. uncomfortable, Behavior is calm, cooperative, vc1 appropriate for age. Pain: Complains of pain in chest Aggravated by coughing. Respiratory: Reports shortness of breath at rest cough that is Onset: The symptoms/episode began/occurred gradually, the patient has mild shortness of breath. Historical: - Allergies: 19:59 Lisinopril; cough; vc1 19:59 PENICILLINS; vc1 - Home Meds: 19:59 levothyroxine oral [Active]; metoprolol tartrate 25 mg Oral tab 1 tab 2 times per day vc1 [Active]; Farxiga 5 mg oral tab 1 tab once daily [Active]; losartan 50 mg oral tab [Active]; Plavix 75 mg Oral tab 1 tab once daily [Active]; aspirin 81 mg Oral chew [Active]; - PMHx: 19:59 diabetes mellitus; Hypertensive disorder; Hypothyroidism; Congestive heart failure; vc1 Pulmonary Edema; - PSHx: 19:59 back; heart cath; Appendectomy; vc1 - Immunization history:: Adult Immunizations up to date, Client reports having NOT received the Covid vaccine. - Social history:: Smoking status: Patient denies any tobacco usage or history of. Screenin:23 Abuse screen: Denies threats or abuse. Nutritional screening: No deficits noted. st1 Tuberculosis screening: No symptoms or risk factors identified. Fall Risk None identified. No fall in past 12 months (0 pts). No secondary diagnosis (0 pts). IV access (20 points). Ambulatory Aid- None/Bed Rest/Nurse Assist (0 pts). Gait- Normal/Bed Rest/Wheelchair (0 pts) Mental Status- Oriented to own ability (0 pts). Total [place] Fall Scale indicates No Risk (0-24 pts). Assessment: 21:00 Cardiovascular: Rhythm is sinus bradycardia. Respiratory: Breath sounds are diminished st1 bilaterally. 21:23 Reassessment: No changes from previously documented assessment. please see triage st1 assessment. 21:25 Cardiovascular: No deficits noted. Respiratory: Airway is patent Respiratory effort is st1 even. Vital Signs: 19:50 BP 113 / 54; Pulse 50; Resp 22; Temp 97.9; Pulse Ox 93% on R/A; Weight 85.28 kg; Height vc1 4 ft. 11 in. (149.86 cm); Pain 7/10; 20:36 BP 127 / 46; Pulse 51; Resp 16; Pulse Ox 96% on R/A; st1 19:50 Body Mass Index 37.97 (85.28 kg, 149.86 cm) vc1 ED Course: 19:46 Patient arrived in ED. es 19:47 Alber Gomez DO is Private Physician. es 19:59 Triage completed. vc1 20:03 Arm band placed on left wrist. vc1 20:19 Gomez Reed, RN is Primary Nurse. as6 20:27 [facility]int[facility]C [facility] kb 20:27 Mahesh Jesus MD is Attending Physician. kb 21:01 XRAY Chest (1 view) In Process Unspecified. EDMS 21:09 [place] Paver Operator paged at 21:09. mw2 21:14 Troponin HS Sent. st1 21:14 PT-INR Sent. st1 21:14 NT PRO-BNP Sent. st1 21:14 Inserted saline lock: 20 gauge in left antecubital area, using aseptic technique. st1 21:15 Basic Metabolic Panel Sent. st1 21:15 CBC with Diff Sent. st1 21:15 Basic Metabolic Panel Sent. st1 21:15 CBC with Automated Diff Sent. st1 21:15 COVID-19 SARS RT PCR (Document "Date of Onset" if Symptomatic) Sent. st1 21:15 SARS-COV-2 RT PCR Sent. st1 21:25 Patient has correct armband on for positive identification. Placed in gown. Bed in low st1 position. Call light in reach. Side rails up X 1. nuclear power reactor operator on. Pulse ox on. NIBP on. Door closed. Warm blanket given. Head of bed elevated. 21:58 Aldo Scanlon MD is Hospitalizing Provider. kb 12/06 06:31 The patients daughter / caregiver is Kerri : phone number [phone]. Please call her st1 once the patient is moved to a hospital room upstairs. 07:22 No provider procedures requiring assistance completed. jg9 07:22 Patient admitted, IV remains in place. jg9 Administered Medications: No medications were administered Outcome: 12/05 21:58 Decision to Hospitalize by Provider. kb 12/06 07:22 Admitted to ER Hold. Please see [facility] for further documentation. jg9 Condition: stable 13:37 Patient left the ED. jh6 Signatures: Dispatcher [employer] EDIN Abigail Mcintosh FNP-C FNP-Kelley Watt MyKena mw2 Gomez Reed RN RN as6 Sheeba Osborn RN RN jh6 Sheeba Smith, RN RN jg9 Isabel Tai, RN RN st1 Mindy Elise RN RN vc1
--- NOTE | 2021-12-05 22:00 | EDPHYS ---
Physician Documentation [facility] Name: Melanie Lyons Age: 81 yrs Sex: Female : 1940 Arrival Date: 12/05/2021 Time: 19:46 Bed 5 Private MD: [facility] ED Physician Mahesh Jesus HPI: 12/05 20:34 This 81 yrs old Female presents to ER via Wheelchair with complaints of kb Breathing Difficulty, Chest Tightness. 20:34 The patient has shortness of breath at rest. Onset: The symptoms/episode began/occurred kb 2 week(s) ago. Duration: The symptoms are continuous. The patient's shortness of breath is aggravated by exertion, is alleviated by nothing. Associated signs and symptoms: Pertinent positives: chest pain, dizziness. Severity of symptoms: At their worst the symptoms were moderate in the emergency department the symptoms are unchanged. The patient has not experienced similar symptoms in the past. The patient has not recently seen a physician. Daughter reports pt has had chest pain/tightness and shortness of breath that started 2 weeks ago and has gotten worse. States she was seen by Dr Rico, had a heart cath that was ok and was told to get a CT chest with contrast to make sure it wasn't her lungs causing the problems. Scheduled a CT, but it isn't until 01/12 so she took pt to [place] yesterday. Pt was diagnosed with Pulmonary Edema there and started on lasix. States pt was worse today with the pain and shortness of breath so she called [place] and was told to come here for admission.. Historical: - Allergies: 19:59 Lisinopril; cough; vc1 19:59 PENICILLINS; vc1 - Home Meds: 19:59 levothyroxine oral [Active]; metoprolol tartrate 25 mg Oral tab 1 tab 2 times per day vc1 [Active]; Farxiga 5 mg oral tab 1 tab once daily [Active]; losartan 50 mg oral tab [Active]; Plavix 75 mg Oral tab 1 tab once daily [Active]; aspirin 81 mg Oral chew [Active]; - PMHx: 19:59 diabetes mellitus; Hypertensive disorder; Hypothyroidism; Congestive heart failure; vc1 Pulmonary Edema; - PSHx: 19:59 back; heart cath; Appendectomy; vc1 - Immunization history:: Adult Immunizations up to date, Client reports having NOT received the Covid vaccine. - Social history:: Smoking status: Patient denies any tobacco usage or history of. ROS: 20:33 Constitutional: Negative for fever, chills, and weight loss. kb 20:33 Cardiovascular: Positive for chest pain, Negative for edema, orthopnea, palpitations, paroxysmal nocturnal dyspnea. 20:33 Respiratory: Positive for dyspnea on exertion, shortness of breath, Negative for cough, hemoptysis, orthopnea, pleurisy, sputum production, wheezing. 20:33 All other systems are negative. Exam: 20:33 Constitutional: This is a well developed, well nourished patient who is awake, alert, kb and in no acute distress. Head/Face: Normocephalic, atraumatic. ENT: Moist Mucous membranes Cardiovascular: Regular rate and rhythm with a normal S1 and S2. No gallops, murmurs, or rubs. No pulse deficits. Respiratory: Respirations even and unlabored. No increased work of breathing. Talking in full sentences Skin: Warm, dry with normal turgor. Normal color. MS/ Extremity: Pulses equal, no cyanosis. Neurovascular intact. Full, normal range of motion. Neuro: Awake and alert, GCS 15, oriented to person, place, time, and situation. Moves all extremities. Normal gait. Psych: Awake, alert, with orientation to person, place and time. Behavior, mood, and affect are within normal limits. 21:10 ECG was reviewed by the Attending Physician. kb Vital Signs: 19:50 BP 113 / 54; Pulse 50; Resp 22; Temp 97.9; Pulse Ox 93% on R/A; Weight 85.28 kg; Height vc1 4 ft. 11 in. (149.86 cm); Pain 7/10; 20:36 BP 127 / 46; Pulse 51; Resp 16; Pulse Ox 96% on R/A; st1 19:50 Body Mass Index 37.97 (85.28 kg, 149.86 cm) vc1 MDM: 20:28 Patient medically screened. kb 20:33 Data reviewed: vital signs, nurses notes. Data interpreted: Pulse oximetry: on room air kb is 93 %. Interpretation: acceptable. 21:10 Physician consultation: Etienne Rico MD was called at 21:10. kb 21:43 Physician consultation: Etienne Rico MD was called at 21:44. kb 21:52 Counseling: I had a detailed discussion with the patient and/or guardian regarding: the kb historical points, exam findings, and any diagnostic results supporting the discharge/admit diagnosis, lab results, radiology results, the need for outpatient follow up. Physician consultation: Deyvi Capone MD was contacted at 21:52, regarding consult, patient's condition, recommends pt be discharged and follow up in office on .. 21:53 ED course: Family refuses to take pt home. States she is not comfortable taking pt home kb with the chest pain and shortness of breath. Will admit to hospitalist. Liborio paged again to inform him. 21:56 Physician consultation: Reyna MAGDALENO was contacted at 21:58, regarding admission, to the telemetry unit. patient's condition, and will see patient in ED. 12/05 20:24 Order name: Basic Metabolic Panel kb 12/05 20:24 Order name: CBC with Diff kb 12/05 20:24 Order name: NT PRO-BNP; Complete Time: 21:30 kb 12/05 20:24 Order name: PT-INR; Complete Time: 21:31 kb 12/05 20:24 Order name: Troponin HS; Complete Time: 21:30 kb 12/05 20:24 Order name: Basic Metabolic Panel; Complete Time: 21:30 EDMS 12/05 20:24 Order name: XRAY Chest (1 view); Complete Time: 21:30 kb 12/05 20:24 Order name: EKG; Complete Time: 20:25 kb 12/05 20:24 Order name: Cardiac monitoring; Complete Time: 20:28 kb 12/05 20:24 Order name: EKG - Nurse/Tech; Complete Time: 20:51 kb 12/05 20:24 Order name: CBC with Automated Diff; Complete Time: 21:19 EDMS 12/05 20:38 Order name: COVID-19 SARS RT PCR (Document "Date of Onset" if Symptomatic) kb 12/05 20:38 Order name: SARS-COV-2 RT PCR; Complete Time: 22:59 EDMS 12/06 07:50 Order name: Glucose, Ancillary Testing EDMS 12/05 20:24 Order name: IV Saline Lock; Complete Time: 21:14 kb 12/05 20:24 Order name: Labs collected and sent; Complete Time: 21:15 kb 12/05 20:24 Order name: O2 Per Protocol; Complete Time: 20:28 kb 12/05 20:24 Order name: O2 Sat Monitoring; Complete Time: 20:28 kb EC:10 Rate is 52 beats/min. Rhythm is regular. QRS [place] is Normal. ND interval is normal at kb 158 msec. QRS interval is normal at 80 msec. QT interval is normal at 466 msec. Administered Medications: No medications were administered Disposition: 12/07 07:08 Co-signature as Attending Physician, Mahesh Jesus MD I agree with the assessment and dania plan of care. Disposition Summary: 12/05/21 21:58 Hospitalization Ordered Hospitalization Status: Observation kb Provider: Aldo Scanlon Condition: Stable kb Problem: new kb Symptoms: are unchanged kb Bed/Room Type: Standard kb Location: [facility] ER HOLD(12/05/21 23:01) Room Assignment: ERHOLD-(12/05/21 23:01) cg Diagnosis - Chest pain, unspecified kb Forms: - Medication Reconciliation Form kb - SBAR form kb Signatures: Dispatcher [employer] EDAbigail Dong, ORGANIC GARDENING TEACHER-C ORGANIC GARDENING TEACHER-Mahesh Roldan MD MD cha Garcia, Cindy, RN RN Mindy Mcdonald RN RN vcReyna Tse PA PA sb3 Corrections: (The following items were deleted from the chart) 12/05 23:01 21:58 Telemetry/MedSurg (observation) kb 23:01 21:58 kb
--- NOTE | 2021-12-05 23:05 | P.HP ---
Certification for Inpatient Patient admitted to: Observation With expected LOS: <2 Midnights Patient will require the following post-hospital care: None Practitioner: I am a practitioner with admitting privileges, knowledge of patient current condition, hospital course, and medical plan of care. Services: Services provided to patient in accordance with Admission requirements found in Title 42 Section 412.3 of the Code of Federal Regulations <Reyna Baxter - Last Filed: 12/05/21 23:05> Patient History Date of Service: 12/05/21 Primary Care Provider: Dr. Gomez Reason for admission: Chest Tightness History of Present Illness: Patient is an 81-year-old female with history of type 2 diabetes m ellitus, hypertension, hypothyroidism, CHF, CAD status post catheterization with PCI, depression and anxiety who presented to the ED with a 1 week history of chest pain/tightness and shortness of breath. Patient had a cardiac catheterization done by Dr. Rico 4 days ago that was reported to be within normal limits. Patient went to the [place] ED last night and had a chest x-ray that apparently showed pulmonary edema. She was given Lasix and she states that it improved her chest tightness and shortness of breath. She returned to the ED tonight with her daughter because the chest tightness and shortness of breath persisted. She also states that she is very weak. Labs here were unremarkable. Troponin negative. EKG negative, borderline bradycardia. Chest x-ray showed no abnormality. Dr. Capone was notified and said patient was okay to go home because she has a follow-up appointment in 3 days. ED provider discussed with patient and recommended discharge, however patient and her daughter refused. They do not feel comfortable with her going home with these symptoms. Dr. Capone does not wish to consult on this patient in the morning but will admit patient for observation. Home medications list reviewed: Yes - Past Medical/Surgical History Diabetic: Yes -: Coronary artery disease -: Diabetes mellitus -: Hypertension -: Hypothyroidism -: Cardiac catheterization with PCI -: Appendectomy -: Back Surgery Psychosocial/ Personal History: patient lives at home with her daughter. - Family History Father -: Diabetes - Social History Smoking Status: Never smoker Alcohol use: No CD- Drugs: No Caffeine use: No Place of Residence: Home <Reyna Baxter - Last Filed: 12/05/21 23:05> Date of Service: 12/06/21 <Aldo Scanlon - Last Filed: 12/08/21 08:26> Allergies Penicillins Allergy (Verified 11/30/21 13:16) Itching Home Medications: Aspirin [Aspirin EC 81 MG] 81 mg PO DAILY #30 tablet. 07/15/21 Clopidogrel Bisulfate [Plavix*] 75 mg PO DAILY #30 tablet 07/15/21 Levothyroxine [Synthroid*] 50 mcg PO [id number] 07/20/21 Metformin HCl [Glucophage*] 1 tab PO DAILY 07/20/21 Metoprolol Tartrate [Lopressor*] 25 mg PO DAILY 07/20/21 Pravastatin Sodium 10 mg PO DAILY 07/20/21 Trazodone HCl [Desyrel] 100 mg PO BEDTIME 07/20/21 Apixaban [Eliquis] 5 mg PO BID #60 tablet 07/22/21 predniSONE [Prednisone] 20 mg PO BID #10 tablet 12/06/21 Review of Systems General: Weakness Respiratory: Shortness of Breath, Wheezing, As per HPI Cardiovascular: Chest Pain <Reyna Baxter - Last Filed: 12/05/21 23:05> Physical Examination - Physical Exam General: Alert, In no apparent distress, Oriented x3 HEENT: Atraumatic, PERRLA, Mucous membr. moist/pink, EOMI, Sclerae nonicteric Neck: Supple, 2+ carotid pulse no bruit, No LAD, Without JVD or thyroid abnormality Respiratory: Clear to auscultation bilaterally, Normal air movement Cardiovascular: No edema, Regular rate/rhythm, Normal S1 S2 Gastrointestinal: Normal bowel sounds, No tenderness Musculoskeletal: No tenderness Integumentary: No rashes Neurological: Normal speech, Normal strength at 5/5 x4 extr, Normal tone, Normal affect - Studies Laboratory Data (last 24 hrs) 12/05/21 21:12: PT 11.0, INR 1.00 12/05/21 21:00: WBC 8.00, Hgb 11.5 L, Hct 34.8 L, Plt Count 363 D 12/05/21 21:00: Sodium 137, Potassium 4.2, BUN 48 H, Creatinine 1.80 H, Glucose 217 H <Reyna Baxter - Last Filed: 12/05/21 23:05> Assessment and Plan - Problems (Diagnosis) (1) Chest tightness Status: Acute (2) Shortness of breath Status: Acute (3) Coronary artery disease Status: Chronic Qualifiers: Coronary Disease-Associated Artery/Lesion type: unspecified vessel or lesion type [place] vs. transplanted heart: [place] heart Associated angina: with other forms of angina Qualified Code(s): I25.118 - Atherosclerotic heart disease of [place] coronary artery with other forms of angina pectoris (4) Diabetes mellitus type 2 in obese Status: Chronic (5) Hypothyroidism Status: Chronic Qualifiers: Hypothyroidism type: acquired Qualified Code(s): E03.9 - Hypothyroidism, unspecified - Plan Patient is stable at this time however still reporting some chest tightness and shortness of breath. Patient does not have any pulmonary edema or pitting edema. Patient's lungs are clear. Patient does experience depression and anxiety, could likely be contributing to her symptoms. Patient's labs, troponin, EKG, and chest x-ray were within normal limits. Dr. Capone is aware of patient and does not feel the need to see her. We will keep patient overnight and likely discharge in the morning. Patient believes she needs Lasix because improved her symptoms last night. Patient's blood pressure has been a little soft and does not show any signs of fluid overload. We will hold off on Lasix. Patient and her daughter are very concerned about her condition. Reassured that patient stable. DVT PPx: Lovenox Code: Full Discharge Plan: Home Plan to discharge in: 24 Hours - Advance Directives Does patient have a Living Will: No Does patient have a Durable POA for Healthcare: No - Code Status/Comfort Care Code Status Assessed: Yes (Full) Critical Care: No Time Spent Managing Pts Care (In Minutes): 70 <Reyna Baxter - Last Filed: 12/05/21 23:05> Date of Service: 12/06/21 Subjective: HPI as mentioned above Physical Examination: Vitals: Afebrile vital signs are stable Physical exam: Cardiovascular: Within normal limits. Lungs: Within normal limits Abdomen: Within normal limits Neuro: Awake, alert, oriented to person place and time Assessment: 1. Chest pain 2. Costochondritis Plan: 1. Continue with current plan of care as mentioned above <Aldo Scanlon - Last Filed: 12/08/21 08:26>
--- OUTSIDE RECORDS SUMMARY | 2021-12-06 01:15 | XMS REPORT | Continuity of Care Document ---
:1940 Author Organization [facility] t Address [address] [place] [address] [address] [place] [address] Care Team Providers Name Role Phone Evelio PÉREZ, Pablo Primary Care Physician Lashae Gomez Attending Clinician Unavailable JACOB Attending Clinician Unavailable Pablo Fraser MD Attending Clinician MAUDE WHITAKER Attending Clinician Unavailable Doctor Unassigned, Name Attending Clinician Unavailable VIDAL Attending Clinician Unavailable Lab, Fam Pob I Attending Clinician Unavailable Alexander CHAVIRA Attending Clinician ALEXANDER Attending Clinician Unavailable Minh Giraldo Attending Clinician ZAC MOREAU Attending Clinician Unavailable Zeeshan Dorsey MD Attending Clinician ZEESHAN DORSEY Attending Clinician Unavailable Provider, Urgent Care Attending Clinician Unavailable Sol MELENDEZ Attending Clinician SOL Attending Clinician Unavailable EVELIO Pablo Attending Clinician Unavailable MONTY, Karina Attending Clinician Unavailable MONTY, T Attending Clinician Unavailable JAYLA Attending Clinician Unavailable Jose Guadalupe PÉREZ Attending Clinician Jayla PÉREZ Attending Clinician Monty PÉREZ, Karina Attending Clinician Neal Jon DO Attending Clinician Lona PILLAI.Annelise. Attending Clinician Unavailable LAKSHMI, Pablo Attending Clinician Unavailable Shahla Cooper Attending Clinician Vidal PÉREZ Attending Clinician 1, Sleep Lab Bed Attending Clinician Unavailable Only, Test Attending Clinician Unavailable Ramona PÉREZ Attending Clinician Tech, Sleep Lab Attending Clinician Unavailable Nuha CHAVIRA, B Attending Clinician 2, Lab Attending Clinician Unavailable Matilde BEGUM Attending Clinician MATILDE Attending Clinician Unavailable MATILDE Attending Clinician Unavailable Dalia Attending Clinician Unavailable Gabriel LIVINGSTON Attending Clinician KYRIE Attending Clinician Unavailable Sonia CHAVIRA, T Attending Clinician Kyrie PÉREZ Attending Clinician VIRY BAUER Attending Clinician Unavailable JOSE GUADALUPE Attending Clinician Unavailable Haider Ko MD Attending Clinician Bruce Attending Clinician Unavailable Lakshmi CHAVIRA, A Attending Clinician Jacob PÉREZ Attending Clinician Luís CHAVIRA Attending Clinician JACOB Admitting Clinician Unavailable KYRIE Admitting Clinician Unavailable Kyrie PÉREZ Admitting Clinician SATNAM STORY Admitting Clinician Unavailable Pablo FRASER Admitting Clinician Unavailable Payers Payer Name Policy Type Policy Number Effective Date Expiration Date S giovanny [employer] MEDICARE ADV [id number] 2016 00:00:00 Problems Condition Condition Condition Status Onset Resolution Last Treating Co mments Source Name Details Category Date Date Treatment Clinician Date Microalbum Microalbum Disease Active U nivers inuria inuria 5-24 ity of 00:00: [place] [facility] Chronic Chronic Disease Active Univers kidney kidney 1-05 ity of disease, disease, 00:00: [place] stage III stage III 00 Medi kacey (moderate) (moderate) Br anch Thiamine Thiamine Disease Active 2019-09 Unive rs deficiency deficiency 2-16 it y of 00:00: [place] [facility] Iron Iron Disease Active 2019-09 Univers deficiency deficiency 2-16 it y of 00:00: [place] [facility] PAD PAD Disease Active 2019-09 Univers (periphera (periphera 2-09 it y of l artery l artery 00:00: [place] disease) disease) 00 Medica l Branch Venous Venous Disease Active 2019-09 Univers insufficie insufficie 2-09 it y of ncy ncy 00:00: [place] [facility] DAVID DAVID Disease Active 2019-09 Univers (obstructi (obstructi 0-12 it y of ve sleep ve sleep 00:00: [place] apnea) apnea) 00 Medical Branch Pulmonary Pulmonary Disease Active Uni vers embolism embolism 3-21 ity of 00:00: [place] [facility] History of History of Disease Active Overview : Univers colon colon 9-20 Formattin ity of polyps polyps 00:00: g of this 00 note Medical might be Branch different from the original. Added automatic ally from request for surgery [id number] Asthma Asthma Disease Active Univers exacerbati exacerbati 1-22 it y of on on 00:00: [place] [facility] Renal Renal Disease Active Univers cyst, cyst, 1-21 ity of right right 00:00: [place] [facility] Radiculopa Radiculopa Disease Active U nivers thy thy 2-01 ity of 00:00: [place] [facility] Spinal Spinal Disease Active Univers stenosis, stenosis, 1-31 ity of lumbar lumbar 00:00: [place] region, region, 00 Medical without without Branch neurogenic neurogenic claudicati claudicati on on Acquired Acquired Disease Active 2016-09 Unive rs hypothyroi hypothyroi 2-19 it y of dism dism 00:00: [place] 00 Medical Branch Enlarged Enlarged Disease Active 2016-09 Unive rs uterus uterus 0-31 ity of 00:00: [place] [facility] Pelvic Pelvic Disease Active 2016-09 Univers mass mass 0-31 ity of 00:00: [place] 00 Medical Branch Thickened Thickened Disease Active 2016-09 Uni vers endometriu endometriu 0-31 it y of m m 00:00: [facility] Branch Fibroid Fibroid Disease Active 2016-09 Univers uterus uterus 0 ity of 00:00: [place] [facility] Branch Fatty Fatty Disease Active 2016-09 Univers liver liver 0-05 ity of 00:00: [place] [facility] Branch Abnormal Abnormal Disease Active Unive rs LFTs LFTs 06-07 ity of (liver (liver 00:00: [place] function function 00 Medica l tests) tests) Branch Chronic Chronic Disease Active Univers insomnia insomnia 06-07 ity of 00:00: [facility] Branch 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 06-07 it y of ia ia 00:00: [place] [facility] Type 2 Type 2 Disease Active Univers diabetes diabetes ity of mellitus mellitus [place] without without Medical complicati complicati Br anch on, on, without without long-term long-term current current use of use of insulin insulin Dry eyes Dry eyes Disease Active Unive rs ity of [facility] Edema Edema Disease Active Univers ity of [facility] Esophageal Esophageal Disease Active U nivers reflux reflux ity of [facility] Osteoporos Osteoporos Disease Active U nivers is is ity of [facility] Obesity Obesity Disease Active Univers ity of [facility] Parapelvic Parapelvic Disease Active U nivers renal cyst renal cyst it y of [facility] Chronic Chronic Disease Active Univers low back low back ity of pain with pain with [place] sciatica sciatica Medica l Branch Allergies, Adverse Reactions, Alerts Allergy Allergy Status Severity Reaction(s) Onset Inactive Treating Comm ents Source Name Type Date Date Clinician METOPROL DRUG Active Med ITCHING Univers OL INGREDI 02-04 ity of 00:00: [place] 00 [facility] Metoprol Propensi Active Rash Univer s ol ty to 02-04 ity of adverse 00:00: [place] reaction 00 [facility] Branch LOSARTAN DRUG Active Dizziness Unive rs INGREDI 06-09 ity of 00:00: [place] 00 [facility] Branch AMLODIPI DRUG Active Other-Cmnt Univ ers NE INGREDI 06-09 ity of 00:00: [place] 00 [facility] Amlodipi Propensi Active Other - See 2020-0 GERD U nivers ne ty to comments 9- ity of adverse 00:00: [place] reaction 00 Medical s Branch Losartan Propensi Active Dizziness 2020-0 Uni vers ty to 9 ity of adverse 00:00: [place] reaction 00 Medical s Branch APIXABAN DRUG Active Swelling 2020-0 Univer s INGREDI 4-20 ity of 00:00: [place] 00 Medical Branch Apixaban Propensi Active Swelling 2020-0 Univ ers ty to 4-20 ity of adverse 00:00: [place] reaction 00 Medical s Branch FIBRATE Drug Active Other-Cmnt 2020-0 Unive rs ANTI-LIP Class 2-23 ity of IDEMICS 00:00: [place] 00 Medical Branch EZETIMIB DRUG Active Other-Cmnt 2019-0 Univ ers E INGREDI 2-23 ity of 00:00: [place] 00 Medical Branch Fibrate Propensi Active Other - See 2019-0 Severe Un whit[place] Anti-Lip ty to comments 2-23 myalgia ity o f idemics adverse 00:00: [place] reaction 00 Medical s Branch Ezetimib Propensi Active Other - See 2020-0 Severe U nivers e ty to comments 2-23 myalgia ity of adverse 00:00: [place] reaction 00 Medical s Branch AMPICILL DRUG Active Rash 2017-0 Univers IN INGREDI 9-11 ity of 00:00: [place] 00 Medical Branch STATINS- Drug Active Other-Cmnt 2017-0 Univ ers HMG-COA Class 9-11 ity of REDUCTAS 00:00: [place] E 00 Medical INHIBITO Branch RS Ampicill Propensi Active Rash 2017-0 Univer s in ty to 9-11 ity of adverse 00:00: [place] reaction 00 Medical s Branch Statins- Propensi Active Other - See 2017-0 Severe U nivers Hmg-Coa ty to comments 9-11 myalgia ity of Reductas adverse 00:00: [place] e reaction 00 Medical Inhibito s Branch rs Social History Social Habit Start Date Stop Date Quantity Comments Source Exposure to Not sure [facility] SARS-CoV-2 [place] [facility] (event) Branch Alcohol intake 2021-03-08 2021-03-08 Current University of 00:00:00 00:00:00 non-drinker of [facility] alcohol Branch (finding) History SDOH Food 2019-12-07 2019-12-07 1 Univers ity of Worry 00:00:00 00:00:00 [place] [facility] History SDOH Food 2019-12-07 2019-12-07 1 Univers ity of Scarcity 00:00:00 00:00:00 [place] [facility] History SDOH 2019-12-07 2019-12-07 2 University o f Transport Med 00:00:00 00:00:00 [place] [facility] History SDOH 2019-12-07 2019-12-07 2 University o f Transport Non-Med 00:00:00 00:00:00 [place] M edical [facility] Tobacco use and 2017-05-28 2017-05-28 Never used Universit y of exposure 00:00:00 00:00:[address] [facility] Sex [birth year] Universit y of 00:00:00 00:00:[address] [facility] Smoking Status Start Date Stop Date Source Never smoker [facility] Medications Ordered Filled Start Stop Current Ordering Indication Dosage Frequency Signature Comments Components Source Medication Medication Date Date Medication? Clinician (SIG) Name Name CLOPIDOGREL Yes [id number] TAKE 1 Univers 75 mg 2-25 [id number] TABLET BY ity of tablet 00:00: MOUTH [place] 00 EVERY DAY Medical Branch DEXILANT 60 Yes [id number] 60mg TAKE 1 Univers mg capsule 2-24 CAPSULE BY ity of 00:00: MOUTH [place] 00 DAILY. Medical STOP Branch ESOMEPRAZO LE. DEXILANT 60 Yes [id number] 60mg TAKE 1 Univers mg capsule 8-18 CAPSULE BY ity of 00:00: MOUTH [place] 00 DAILY. Medical STOP Branch ESOMEPRAZO LE. lisinopriL Yes [id number] 20mg Take 1 U nivers 20 mg 6-22 tablet by ity of tablet 00:00: mouth [place] 00 daily. Medical Branch levothyroxi Yes [id number] 50ug Take 1 Univers ne 50 mcg 6-22 tablet by ity o f tablet 00:00: mouth [place] 00 every Medical morning. Branch lisinopriL Yes [id number] 20mg Take 1 U nivers 20 mg 6-22 tablet by ity of tablet 00:00: mouth [place] 00 daily. Medical Branch levothyroxi Yes [id number] 50ug Take 1 Univers ne 50 mcg 6-22 tablet by ity o f tablet 00:00: mouth [place] 00 every Medical morning. Branch lisinopriL 0 Yes [id number] 20mg Take 1 U nivers 20 mg 6-22 tablet by ity of tablet 00:00: mouth [place] 00 daily. Medical Branch levothyroxi 0 Yes [id number] 50ug Take 1 Univers ne 50 mcg 6-22 tablet by ity o f tablet 00:00: mouth [place] 00 every Medical morning. Branch lisinopriL 0 Yes [id number] 20mg Take 1 U nivers 20 mg 6-22 tablet by ity of tablet 00:00: mouth [place] 00 daily. Medical Branch levothyroxi 0 Yes [id number] 50ug Take 1 Univers ne 50 mcg 6-22 tablet by ity o f tablet 00:00: mouth [place] 00 every Medical morning. Branch lisinopriL 0 Yes [id number] 20mg Take 1 U nivers 20 mg 6-22 tablet by ity of tablet 00:00: mouth [place] 00 daily. Medical Branch levothyroxi 0 Yes [id number] 50ug Take 1 Univers ne 50 mcg 6-22 tablet by ity o f tablet 00:00: mouth [place] 00 every Medical morning. Branch lisinopriL 0 Yes [id number] 20mg Take 1 U nivers 20 mg 6-22 tablet by ity of tablet 00:00: mouth [place] 00 daily. Medical Branch levothyroxi 0 Yes [id number] 50ug Take 1 Univers ne 50 mcg 6-22 tablet by ity o f tablet 00:00: mouth [place] 00 every Medical morning. Branch lisinopriL 0 Yes [id number] 20mg Take 1 U nivers 20 mg 6-22 tablet by ity of tablet 00:00: mouth [place] 00 daily. Medical Branch levothyroxi 0 Yes [id number] 50ug Take 1 Univers ne 50 mcg 6-22 tablet by ity o f tablet 00:00: mouth [place] 00 every Medical morning. Branch LEVOTHYROXI 0 Yes [id number] TAKE 1 Univers NE 50 mcg 6-21 TABLET BY ity o f tablet 00:00: MOUTH [place] 00 EVERY DAY Medical IN THE Branch MORNING LEVOTHYROXI 2020-0 2020- No [id number] TAKE 1 Univers NE 50 mcg 6-21 06-22 TABLET BY ity of tablet 00:00: 00:00 MOUTH [place] 00 :00 EVERY DAY Medical IN THE Branch MORNING LEVOTHYROXI 0 2020- No [id number] TAKE 1 Univers NE 50 mcg 6-21 06-22 TABLET BY ity of tablet 00:00: 00:00 MOUTH [place] 00 :00 EVERY DAY Medical IN THE [place] MORNING TRIAMTERENE 0 Yes [id number] TAKE 1 Univers -HYDROCHLOR 6-08 TABLET BY ity of OTHIAZID 00:00: MOUTH [place] 37.5-25 mg 00 EVERY DAY Medi kacey tablet Branch TRIAMTERENE 0 Yes [id number] TAKE 1 Univers -HYDROCHLOR 6-08 TABLET BY ity of OTHIAZID 00:00: MOUTH [place] 37.5-25 mg 00 EVERY DAY Medi kacey tablet Branch TRIAMTERENE 0 Yes [id number] TAKE 1 Univers -HYDROCHLOR 6-08 TABLET BY ity of OTHIAZID 00:00: MOUTH [place] 37.5-25 mg 00 EVERY DAY Medi kacey tablet Branch TRIAMTERENE 0 Yes [id number] TAKE 1 Univers -HYDROCHLOR 6-08 TABLET BY ity of OTHIAZID 00:00: MOUTH [place] 37.5-25 mg 00 EVERY DAY Medi kacey tablet Branch TRIAMTERENE 0 Yes [id number] TAKE 1 Univers -HYDROCHLOR 6-08 TABLET BY ity of OTHIAZID 00:00: MOUTH [place] 37.5-25 mg 00 EVERY DAY Medi kacey tablet Branch TRIAMTERENE 0 Yes [id number] TAKE 1 Univers -HYDROCHLOR 6-08 TABLET BY ity of OTHIAZID 00:00: MOUTH [place] 37.5-25 mg 00 EVERY DAY Medi kacey tablet Branch TRIAMTERENE 0 Yes [id number] TAKE 1 Univers -HYDROCHLOR 6-08 TABLET BY ity of OTHIAZID 00:00: MOUTH [place] 37.5-25 mg 00 EVERY DAY Medi kacey tablet Branch TRIAMTERENE 0 Yes [id number] TAKE 1 Univers -HYDROCHLOR 6-08 TABLET BY ity of OTHIAZID 00:00: MOUTH [place] 37.5-25 mg 00 EVERY DAY Medi kacey tablet Branch TRIAMTERENE 0 Yes [id number] TAKE 1 Univers -HYDROCHLOR 6-08 TABLET BY ity of OTHIAZID 00:00: MOUTH [place] 37.5-25 mg 00 EVERY DAY Medi kacey tablet Branch TRIAMTERENE 1-0 Yes [id number] TAKE 1 Univers -HYDROCHLOR 6-08 TABLET BY ity of OTHIAZID 00:00: MOUTH [place] 37.5-25 mg 00 EVERY DAY Medi kacey tablet Branch TRIAMTERENE 1-0 Yes [id number] TAKE 1 Univers -HYDROCHLOR 6-08 TABLET BY ity of OTHIAZID 00:00: MOUTH [place] 37.5-25 mg 00 EVERY DAY Medi kacey tablet Branch acetaminoph 1-0 Yes Univer s en-codeine [...] tablet 00 Medical Branch hydrOXYzine 1-0 Yes [id number] 25mg Take 1 Univers 25 mg 5-24 tablet by ity of tablet 00:00: mouth [place] 00 every 6 Medical (six) Branch hours as needed for Itching. triamcinolo 2020-0 Yes [id number] Apply to Univers ne 5-24 area(s) 2 ity of acetonide 00:00: (two) [place] 0.1 % cream 00 times Medical daily. Branch hydrOXYzine 2020-0 Yes [id number] 25mg Take 1 Univers 25 mg 5-24 tablet by ity of tablet 00:00: mouth [place] 00 every 6 Medical (six) Branch hours as needed for Itching. triamcinolo 2021-0 Yes [id number] Apply to Univers ne 5-24 area(s) 2 ity of acetonide 00:00: (two) [place] 0.1 % cream 00 times Medical daily. Branch hydrOXYzine 2021-0 Yes [id number] 25mg Take 1 Univers 25 mg 5-24 tablet by ity of tablet 00:00: mouth [place] 00 every 6 Medical (six) Branch hours as needed for Itching. triamcinolo 2021-0 Yes [id number] Apply to Univers ne 5-24 area(s) 2 ity of acetonide 00:00: (two) [place] 0.1 % cream 00 times Medical daily. Branch hydrOXYzine 2021-0 Yes [id number] 25mg Take 1 Univers 25 mg 5-24 tablet by ity of tablet 00:00: mouth [place] 00 every 6 Medical (six) Branch hours as needed for Itching. triamcinolo 2021-0 Yes [id number] Apply to Univers ne 5-24 area(s) 2 ity of acetonide 00:00: (two) [place] 0.1 % cream 00 times Medical daily. Branch hydrOXYzine 2021-0 Yes [id number] 25mg Take 1 Univers 25 mg 5-24 tablet by ity of tablet 00:00: mouth [place] 00 every 6 Medical (six) Branch hours as needed for Itching. triamcinolo 2021-0 Yes [id number] Apply to Univers ne 5-24 area(s) 2 ity of acetonide 00:00: (two) [place] 0.1 % cream 00 times Medical daily. Branch hydrOXYzine 2021-0 Yes [id number] 25mg Take 1 Univers 25 mg 5-24 tablet by ity of tablet 00:00: mouth [place] 00 every 6 Medical (six) Branch hours as needed for Itching. triamcinolo 2021-0 Yes [id number] Apply to Univers ne 5-24 area(s) 2 ity of acetonide 00:00: (two) [place] 0.1 % cream 00 times Medical daily. Branch hydrOXYzine 2021-0 Yes [id number] 25mg Take 1 Univers 25 mg 5-24 tablet by ity of tablet 00:00: mouth [place] 00 every 6 Medical (six) Branch hours as needed for Itching. triamcinolo 2021-0 Yes [id number] Apply to Univers ne 5-24 area(s) 2 ity of acetonide 00:00: (two) [place] 0.1 % cream 00 times Medical daily. Branch hydrOXYzine 2021-0 Yes [id number] 25mg Take 1 Univers 25 mg 5-24 tablet by ity of tablet 00:00: mouth [place] 00 every 6 Medical (six) Branch hours as needed for Itching. triamcinolo 2021-0 Yes [id number] Apply to Univers ne 5-24 area(s) 2 ity of acetonide 00:00: (two) [place] 0.1 % cream 00 times Medical daily. Branch hydrOXYzine 2021-0 Yes [id number] 25mg Take 1 Univers 25 mg 5-24 tablet by ity of tablet 00:00: mouth [place] 00 every 6 Medical (six) Branch hours as needed for Itching. triamcinolo 2021-0 Yes [id number] Apply to Univers ne 5-24 area(s) 2 ity of acetonide 00:00: (two) [place] 0.1 % cream 00 times Medical daily. Branch hydrOXYzine 1-0 Yes [id number] 25mg Take 1 Univers 25 mg 5-24 tablet by ity of tablet 00:00: mouth [place] 00 every 6 Medical (six) Branch hours as needed for Itching. triamcinolo 2021-0 Yes [id number] Apply to Univers ne 5-24 area(s) 2 ity of acetonide 00:00: (two) [place] 0.1 % cream 00 times Medical daily. Branch hydrOXYzine 1-0 Yes [id number] 25mg Take 1 Univers 25 mg 5-24 tablet by ity of tablet 00:00: mouth [place] 00 every 6 Medical (six) Branch hours as needed for Itching. triamcinolo 2021-0 Yes [id number] Apply to Univers ne 5-24 area(s) 2 ity of acetonide 00:00: (two) [place] 0.1 % cream 00 times Medical daily. Branch hydrOXYzine 2021-0 Yes [id number] 25mg Take 1 Univers 25 mg 5-24 tablet by ity of tablet 00:00: mouth [place] 00 every 6 Medical (six) Branch hours as needed for Itching. triamcinolo 2021-0 Yes [id number] Apply to Univers ne 5-24 area(s) 2 ity of acetonide 00:00: (two) [place] 0.1 % cream 00 times Medical daily. Branch hydrOXYzine 2020-0 Yes [id number] 25mg Take 1 Univers 25 mg 5-24 tablet by ity of tablet 00:00: mouth [place] 00 every 6 Medical (six) Branch hours as needed for Itching. triamcinolo 2020-0 Yes [id number] Apply to Univers ne 5-24 area(s) 2 ity of acetonide 00:00: (two) [place] 0.1 % cream 00 times Medical daily. Branch hydrOXYzine 2020-0 Yes [id number] 25mg Take 1 Univers 25 mg 5-24 tablet by ity of tablet 00:00: mouth [place] 00 every 6 Medical (six) Branch hours as needed for Itching. triamcinolo 2020-0 Yes [id number] Apply to Univers ne 5-24 area(s) 2 ity of acetonide 00:00: (two) [place] 0.1 % cream 00 times Medical daily. Branch Magnesium Yes Take by Univ ers 250 mg Tab 5-21 mouth. ity of 22:05: [place] [address] Medical Branch vitamin B-6 Yes 100mg Take 100 U nivers (VITAMIN 5-21 mg by ity of B-6) 100 mg 22:05: mouth [place] tablet 48 daily. Medical Branch CALCIUM 0 Yes Take by Univer s CARBONATE/V 5-21 mouth. ity of ITAMIN D3 22:05: [place] (VITAMIN 48 Medical D-3 ORAL) Branch Magnesium Yes Take by Univ ers 250 mg Tab 5-21 mouth. ity of 22:05: [place] [address] Medical Branch vitamin B-6 Yes 100mg Take 100 U nivers (VITAMIN 5-21 mg by ity of B-6) 100 mg 22:05: mouth [place] tablet 48 daily. Medical Branch CALCIUM 0 Yes Take by Univer s CARBONATE/V 5-21 mouth. ity of ITAMIN D3 22:05: [place] (VITAMIN 48 Medical D-3 ORAL) Branch Magnesium 2020-0 Yes Take by Univ ers 250 mg Tab 5-21 mouth. ity of 22:05: [place] [address] Medical Branch vitamin B-6 Yes 100mg Take 100 U nivers (VITAMIN 5-21 mg by ity of B-6) 100 mg 22:05: mouth [place] tablet 48 daily. Medical Branch CALCIUM Yes Take by Univer s CARBONATE/V 5-21 mouth. ity of ITAMIN D3 22:05: [place] (VITAMIN 48 Medical D-3 ORAL) Branch Magnesium Yes Take by Univ ers 250 mg Tab 5-21 mouth. ity of 22:05: [place] [address] Medical Branch vitamin B-6 Yes 100mg Take 100 U nivers (VITAMIN 5-21 mg by ity of B-6) 100 mg 22:05: mouth [place] tablet 48 daily. Medical Branch CALCIUM Yes Take by Univer s CARBONATE/V 5-21 mouth. ity of ITAMIN D3 22:05: [place] (VITAMIN 48 Medical D-3 ORAL) Branch Magnesium Yes Take by Univ ers 250 mg Tab 5-21 mouth. ity of 22:05: [place] [address] Medical Branch vitamin B-6 Yes 100mg Take 100 U nivers (VITAMIN 5-21 mg by ity of B-6) 100 mg 22:05: mouth [place] tablet 48 daily. Medical Branch CALCIUM Yes Take by Univer s CARBONATE/V 5-21 mouth. ity of ITAMIN D3 22:05: [place] (VITAMIN 48 Medical D-3 ORAL) Branch Magnesium Yes Take by Univ ers 250 mg Tab 5-21 mouth. ity of 22:05: [place] [address] Medical Branch vitamin B-6 Yes 100mg Take 100 U nivers (VITAMIN 5-21 mg by ity of B-6) 100 mg 22:05: mouth [place] tablet 48 daily. Medical Branch CALCIUM Yes Take by Univer s CARBONATE/V 5-21 mouth. ity of ITAMIN D3 22:05: [place] (VITAMIN 48 Medical D-3 ORAL) Branch Magnesium Yes Take by Univ ers 250 mg Tab 5-21 mouth. ity of 22:05: [place] [address] Medical Branch vitamin B-6 Yes 100mg Take 100 U nivers (VITAMIN 5-21 mg by ity of B-6) 100 mg 22:05: mouth [place] tablet 48 daily. Medical Branch CALCIUM Yes Take by Univer s CARBONATE/V 5-21 mouth. ity of ITAMIN D3 22:05: [place] (VITAMIN 48 Medical D-3 ORAL) Branch Magnesium Yes Take by Univ ers 250 mg Tab 5-21 mouth. ity of 22:05: [place] [address] Medical Branch vitamin B-6 Yes 100mg Take 100 U nivers (VITAMIN 5-21 mg by ity of B-6) 100 mg 22:05: mouth [place] tablet 48 daily. Medical Branch CALCIUM Yes Take by Univer s CARBONATE/V 5-21 mouth. ity of ITAMIN D3 22:05: [place] (VITAMIN 48 Medical D-3 ORAL) Branch Magnesium Yes Take by Univ ers 250 mg Tab 5-21 mouth. ity of 22:05: [place] [address] Medical Branch vitamin B-6 Yes 100mg Take 100 U nivers (VITAMIN 5-21 mg by ity of B-6) 100 mg 22:05: mouth [place] tablet 48 daily. Medical Branch CALCIUM Yes Take by Univer s CARBONATE/V 5-21 mouth. ity of ITAMIN D3 22:05: [place] (VITAMIN 48 Medical D-3 ORAL) Branch Magnesium Yes Take by Univ ers 250 mg Tab 5-21 mouth. ity of 22:05: [place] [address] Medical Branch vitamin B-6 Yes 100mg Take 100 U nivers (VITAMIN 5-21 mg by ity of B-6) 100 mg 22:05: mouth [place] tablet 48 daily. Medical Branch CALCIUM Yes Take by Univer s CARBONATE/V 5-21 mouth. ity of ITAMIN D3 22:05: [place] (VITAMIN 48 Medical D-3 ORAL) Branch Magnesium Yes Take by Univ ers 250 mg Tab 5-21 mouth. ity of 22:05: [place] [address] Medical Branch vitamin B-6 Yes 100mg Take 100 U nivers (VITAMIN 5-21 mg by ity of B-6) 100 mg 22:05: mouth [place] tablet 48 daily. Medical Branch CALCIUM Yes Take by Univer s CARBONATE/V 5-21 mouth. ity of ITAMIN D3 22:05: [place] (VITAMIN 48 Medical D-3 ORAL) Branch Magnesium Yes Take by Univ ers 250 mg Tab 5-21 mouth. ity of 22:05: [place] [address] Medical Branch vitamin B-6 Yes 100mg Take 100 U nivers (VITAMIN 5-21 mg by ity of B-6) 100 mg 22:05: mouth [place] tablet 48 daily. Medical Branch CALCIUM Yes Take by Univer s CARBONATE/V 5-21 mouth. ity of ITAMIN D3 22:05: [place] (VITAMIN 48 Medical D-3 ORAL) Branch Magnesium Yes Take by Univ ers 250 mg Tab 5-21 mouth. ity of 22:05: [place] [address] Medical Branch vitamin B-6 Yes 100mg Take 100 U nivers (VITAMIN 5-21 mg by ity of B-6) 100 mg 22:05: mouth [place] tablet 48 daily. Medical Branch CALCIUM Yes Take by Univer s CARBONATE/V 5-21 mouth. ity of ITAMIN D3 22:05: [place] (VITAMIN 48 Medical D-3 ORAL) Branch Magnesium Yes Take by Univ ers 250 mg Tab 5-21 mouth. ity of 22:05: [place] [address] Medical Branch vitamin B-6 Yes 100mg Take 100 U nivers (VITAMIN 5-21 mg by ity of B-6) 100 mg 22:05: mouth [place] tablet 48 daily. Medical Branch CALCIUM Yes Take by Univer s CARBONATE/V 5-21 mouth. ity of ITAMIN D3 22:05: [place] (VITAMIN 48 Medical D-3 ORAL) Branch Magnesium Yes Take by Univ ers 250 mg Tab 5-21 mouth. ity of 22:05: [place] [address] Medical Branch vitamin B-6 Yes 100mg Take 100 U nivers (VITAMIN 5-21 mg by ity of B-6) 100 mg 22:05: mouth [place] tablet 48 daily. Medical Branch CALCIUM Yes Take by [facility]iver [facility] CARBONATE/V 5-21 mouth. ity of ITAMIN D3 22:05: [place] (VITAMIN 48 Medical D-3 ORAL) Branch alcaftadine Yes Place in U nivers (LASTACAFT) 5-21 each eye. ity of 0.25 % Drop 22:05: [place] [address] Medical Branch CYCL[address] Yes Place in [facility] E (RESTASIS 5-21 each eye. ity of OPHTHALMIC) 22:05: [place] [address] Medical Branch vitamin E 2020-0 Yes 1000U Take 1,000 U nivers 1,000 unit 5-21 Units by ity o f capsule 22:05: mouth [place] [address] daily. Medical Branch alcaftadine 2020-[address] in [facility] (LASTACAFT) 5-21 each eye. ity of 0.25 % Drop 22:05: [place] [address] Medical Branch CYCLOSPORIN [address] in [facility] E (RESTASIS 5-21 each eye. ity of OPHTHALMIC) 22:05: [place] [address] Medical Branch vitamin E 0 Yes 1000U Take 1,000 U nivers 1,000 unit 5-21 Units by ity o f capsule 22:05: mouth [place] [address] daily. Medical Branch alcaftadine [address] in [facility] (LASTACAFT) 5-21 each eye. ity of 0.25 % Drop 22:05: [place] [address] Medical Branch CYCLOSPORIN [address] in [facility] E (RESTASIS 5-21 each eye. ity of OPHTHALMIC) 22:05: [place] [address] Medical Branch vitamin E 0 Yes 1000U Take 1,000 U nivers 1,000 unit 5-21 Units by ity o f capsule 22:05: mouth [place] [address] daily. Medical Branch alcaftadine [address] in [facility] (LASTACAFT) 5-21 each eye. ity of 0.25 % Drop 22:05: [place] [address] Medical Branch CYCLOSPORIN [address] in [facility] E (RESTASIS 5-21 each eye. ity of OPHTHALMIC) 22:05: [place] [address] [facility] Branch vitamin E 2020-0 Yes 1000U Take 1,000 U nivers 1,000 unit 5-21 Units by ity o f capsule 22:05: mouth [place] [address] daily. Medical Branch alcaftadine 2020-[address] in [facility] (LASTACAFT) 5-21 each eye. ity of 0.25 % Drop 22:05: [place] [address] Medical Branch CYCLOSPORIN 2020-[address] in [facility] E (RESTASIS 5-21 each eye. ity of OPHTHALMIC) 22:05: [place] [address] [facility] Branch vitamin E 2020-0 Yes 1000U Take 1,000 U nivers 1,000 unit 5-21 Units by ity o f capsule 22:05: mouth [place] [address] daily. Medical Branch alcaftadine 2020-[address] in [facility] (LASTACAFT) 5-21 each eye. ity of 0.25 % Drop 22:05: [place] [address] [facility] Branch CYCLOSPORIN 2020-[address] in [facility] E (RESTASIS 5-21 each eye. ity of OPHTHALMIC) 22:05: [place] [address] [facility] Branch vitamin E 2020-0 Yes 1000U Take 1,000 U nivers 1,000 unit 5-21 Units by ity o f capsule 22:05: mouth [place] [address] daily. Medical Branch alcaftadine 2020-[address] in [facility] (LASTACAFT) 5-21 each eye. ity of 0.25 % Drop 22:05: [place] [address] [facility] Branch CYCLOSPORIN [address] in [facility] E (RESTASIS 5-21 each eye. ity of OPHTHALMIC) 22:05: [place] [address] [facility] Branch vitamin E 2020-0 Yes 1000U Take 1,000 U nivers 1,000 unit 5-21 Units by ity o f capsule 22:05: mouth [place] [address] daily. Medical Branch alcaftadine [address] in [facility] (LASTACAFT) 5-21 each eye. ity of 0.25 % Drop 22:05: [place] [address] [facility] Branch CYCLOSPORIN 2020-[address] in [facility] E (RESTASIS 5-21 each eye. ity of OPHTHALMIC) 22:05: [place] [address] [facility] Branch vitamin E 2020-0 Yes 1000U Take 1,000 U nivers 1,000 unit 5-21 Units by ity o f capsule 22:05: mouth [place] [address] daily. Medical Branch alcaftadine 2020-[address] in [facility] (LASTACAFT) 5-21 each eye. ity of 0.25 % Drop 22:05: [place] [address] [facility] Branch CYCLOSPORIN 2020-[address] in [facility] E (RESTASIS 5-21 each eye. ity of OPHTHALMIC) 22:05: [place] [address] [facility] Branch vitamin E 2020-0 Yes 1000U Take 1,000 U nivers 1,000 unit 5-21 Units by ity o f capsule 22:05: mouth [place] [address] daily. Medical Branch alcaftadine 2020-[address] in [facility] (LASTACAFT) 5-21 each eye. ity of 0.25 % Drop 22:05: [place] [address] [facility] Branch CYCLOSPORIN 2020-[address] in [facility] E (RESTASIS 5-21 each eye. ity of OPHTHALMIC) 22:05: [place] [address] [facility] Branch vitamin E 2020-0 Yes 1000U Take 1,000 U nivers 1,000 unit 5-21 Units by ity o f capsule 22:05: mouth [place] [address] daily. Medical Branch alcaftadine 2020-[address] in [facility] (LASTACAFT) 5-21 each eye. ity of 0.25 % Drop 22:05: [place] [address] [facility] Branch CYCLOSPORIN 2020-[address] in [facility] E (RESTASIS 5-21 each eye. ity of OPHTHALMIC) 22:05: [place] [address] [facility] Branch vitamin E 2020-0 Yes 1000U Take 1,000 U nivers 1,000 unit 5-21 Units by ity o f capsule 22:05: mouth [place] [address] daily. Medical Branch alcaftadine 2020-[address] in [facility] (LASTACAFT) 5-21 each eye. ity of 0.25 % Drop 22:05: [place] [address] [facility] Branch CYCLOSPORIN 2020-[address] in [facility] E (RESTASIS 5-21 each eye. ity of OPHTHALMIC) 22:05: [place] [address] [facility] Branch vitamin E 2020-0 Yes 1000U Take 1,000 U nivers 1,000 unit 5-21 Units by ity o f capsule 22:05: mouth [place] [address] daily. Medical Branch alcaftadine 2020-[address] in [facility] (LASTACAFT) 5-21 each eye. ity of 0.25 % Drop 22:05: [place] [address] [facility] Branch CYCLOSPORIN 2020-[address] in [facility] E (RESTASIS 5-21 each eye. ity of OPHTHALMIC) 22:05: [place] [address] [facility] Branch vitamin E 2020-0 Yes 1000U Take 1,000 U nivers 1,000 unit 5-21 Units by ity o f capsule 22:05: mouth [place] [address] daily. Medical Branch alcaftadine 2020-[address] in [facility] (LASTACAFT) 5-21 each eye. ity of 0.25 % Drop 22:05: [place] [address] [facility] Branch CYCLOSPORIN 2020-[address] in [facility] E (RESTASIS 5-21 each eye. ity of OPHTHALMIC) 22:05: [place] [address] [facility] Branch vitamin E Yes 1000U Take 1,000 U nivers 1,000 unit 5-21 Units by ity o f capsule 22:05: mouth [place] 47 daily. Medical Branch alcaftadine Yes Place in [facility] (LASTACAFT) 5-21 each eye. ity of 0.25 % Drop 22:05: [place] [address] [facility] Branch CYCLOSPORIN Yes Place in [facility] E (RESTASIS 5-21 each eye. ity of OPHTHALMIC) 22:05: [place] [address] [facility] Branch vitamin E Yes 1000U Take 1,000 U nivers 1,000 unit 5-21 Units by ity o f capsule 22:05: mouth [place] 47 daily. Medical Branch Magnesium Yes Take by Univ ers 250 mg Tab 5-21 mouth. ity of 17:05: [place] [address] Medical Branch vitamin B-6 Yes 100mg Take 100 [facility] n[facility] (VITAMIN 5-21 mg by ity of B-6) 100 mg 17:05: mouth [place] tablet 48 daily. Medical Branch CALCIUM Yes Take by Un[facility] CARBONATE/V 5-21 mouth. ity of ITAMIN D3 17:05: [place] ([place] [address] Medical D-3 ORAL) Branch alcaftadine Yes Place in [facility] (LASTACAFT) 5-21 each eye. ity of 0.25 % Drop 17:05: [place] [address] [facility] Branch CYCLOSPORIN Yes Place in [facility] E (RESTASIS 5-21 each eye. ity of OPHTHALMIC) 17:05: [place] [address] Medical Branch vitamin E Yes 1000U Take 1,000 U nivers 1,000 unit 5-21 Units by ity o f capsule 17:05: mouth [place] 47 daily. Medical Branch lisinopriL 0 Yes [id number] 10mg Take 0.5 [facility] 20 mg 5-21 tablets by ity of tablet 00:00: mouth [place] 00 daily. Medical Branch lisinopriL 0 Yes [id number] 10mg Take 0.5 [facility] 20 mg 5-21 tablets by ity of tablet 00:00: mouth [place] 00 daily. Medical Branch lisinopriL 0 Yes [id number] 10mg Take 0.5 [facility] 20 mg 5-21 tablets by ity of tablet 00:00: mouth [place] 00 daily. Medical Branch lisinopriL Yes [id number] 10mg Take 0.5 [facility] 20 mg 5-21 tablets by ity of tablet 00:00: mouth [place] 00 daily. Medical Branch lisinopriL Yes [id number] 10mg Take 0.5 [facility] 20 mg 5-21 tablets by ity of tablet 00:00: mouth [place] 00 daily. Medical Branch lisinopriL Yes [id number] 10mg Take 0.5 [facility] 20 mg 5-21 tablets by ity of tablet 00:00: mouth [place] 00 daily. Medical Branch lisinopriL Yes [id number] 10mg Take 0.5 [facility] 20 mg 5-21 tablets by ity of tablet 00:00: mouth [place] 00 daily. Medical Branch lisinopriL 2020- No [id number] 10mg Take 0.5 [facility] 20 mg 5-21 06-22 tablets by ity of tablet 00:00: 00:00 mouth [place] 00 :00 daily. Medical Branch lisinopriL 2020- No [id number] 10mg Take 0.5 [facility] 20 mg 5-21 06-22 tablets by ity of tablet 00:00: 00:00 mouth [place] 00 :00 daily. Medical Branch Blood-Gluco Yes [id number] Check [facility] se Meter 5-11 glucose ity of Kit 00:00: once daily [place] 00 before Medical breakfast; Branch ICD-10 code E11.9 blood sugar Yes [id number] Check [facility] diagnostic 5-11 glucose ity of (BLOOD 00:00: once daily [place] GLUCOSE 00 before Medical TEST) strip breakfast; Br anch ICD-10 code E11.9 Lancets Yes [id number] Check [facility] ers Misc 5-11 glucose ity of 00:00: once daily [place] 00 before Medical breakfast; Branch ICD-10 code E11.9 pravastatin Yes [id number] 10mg Take 1 [facility] 10 mg 5-11 [id number] tablet by ity of tablet 00:00: mouth [place] 00 every Medical other day. Branch metformin Yes [id number] 500mg Take 1 U nivers ER 500 mg 5-11 tablet by ity o f 24 hr 00:00: mouth 2 [place] tablet 00 (two) Medical times Branch daily with meals. Blood-Gluco 2020-0 Yes [id number] Check [facility] se Meter 5-11 glucose ity of Kit 00:00: once daily [place] 00 before Medical breakfast; Branch ICD-10 code E11.9 blood sugar 2020-0 Yes [id number] Check [facility] diagnostic 5-11 glucose ity of (BLOOD 00:00: once daily [place] GLUCOSE 00 before Medical TEST) strip breakfast; Br anch ICD-10 code E11.9 Lancets 2020-0 Yes [id number] Check [facility] ers Misc 5-11 glucose ity of 00:00: once daily [place] 00 before Medical breakfast; Branch ICD-10 code E11.9 pravastatin 2020-0 Yes [id number] 10mg Take 1 [facility] 10 mg 5-11 [id number] tablet by ity of tablet 00:00: mouth [place] 00 every Medical other day. Branch metformin 2020-0 Yes [id number] 500mg Take 1 U nivers ER 500 mg 5-11 tablet by ity o f 24 hr 00:00: mouth 2 [place] tablet 00 (two) Medical times Branch daily with meals. Blood-Gluco 2020-0 Yes [id number] Check [facility] se Meter 5-11 glucose ity of Kit 00:00: once daily [place] 00 before Medical breakfast; Branch ICD-10 code E11.9 blood sugar 2020-0 Yes [id number] Check [facility] diagnostic 5-11 glucose ity of (BLOOD 00:00: once daily [place] GLUCOSE 00 before Medical TEST) strip breakfast; Br anch ICD-10 code E11.9 Lancets 2020-0 Yes [id number] Check [facility] ers Misc 5-11 glucose ity of 00:00: once daily [place] 00 before Medical breakfast; Branch ICD-10 code E11.9 pravastatin 2020-0 Yes [id number] 10mg Take 1 [facility] 10 mg 5-11 [id number] tablet by ity of tablet 00:00: mouth [place] 00 every Medical other day. Branch metformin 2020-0 Yes [id number] 500mg Take 1 U nivers ER 500 mg 5-11 tablet by ity o f 24 hr 00:00: mouth 2 [place] tablet 00 (two) Medical times Branch daily with meals. Blood-Gluco 2020-0 Yes [id number] Check [facility] se Meter 5-11 glucose ity of Kit 00:00: once daily [place] 00 before Medical breakfast; Branch ICD-10 code E11.9 blood sugar 2020-0 Yes [id number] Check [facility] diagnostic 5-11 glucose ity of (BLOOD 00:00: once daily [place] GLUCOSE 00 before Medical TEST) strip breakfast; Br oma ICD-10 code E11.9 Lancets 2020-0 Yes [id number] Check [facility] ers Misc 5-11 glucose ity of 00:00: once daily [place] 00 before Medical breakfast; Branch ICD-10 code E11.9 pravastatin 2020-0 Yes [id number] 10mg Take 1 [facility] 10 mg 5-11 [id number] tablet by ity of tablet 00:00: mouth [place] 00 every Medical other day. Branch metformin 2020-0 Yes [id number] 500mg Take 1 U nivers ER 500 mg 5-11 tablet by ity o f 24 hr 00:00: mouth 2 [place] tablet 00 (two) Medical times Branch daily with meals. Blood-Gluco 2020-0 Yes [id number] Check [facility] se Meter 5-11 glucose ity of Kit 00:00: once daily [place] 00 before Medical breakfast; Branch ICD-10 code E11.9 blood sugar 2020-0 Yes [id number] Check [facility] diagnostic 5-11 glucose ity of (BLOOD 00:00: once daily [place] GLUCOSE 00 before Medical TEST) strip breakfast; Br anch ICD-10 code E11.9 Lancets 2020-0 Yes [id number] Check [facility] ers Misc 5-11 glucose ity of 00:00: once daily [place] 00 before Medical breakfast; Branch ICD-10 code E11.9 pravastatin 2020-0 Yes [id number] 10mg Take 1 [facility] 10 mg 5-11 [id number] tablet by ity of tablet 00:00: mouth [place] 00 every Medical other day. Branch metformin 2020-0 Yes [id number] 500mg Take 1 U nivers ER 500 mg 5-11 tablet by ity o f 24 hr 00:00: mouth 2 [place] tablet 00 (two) Medical times Branch daily with meals. Blood-Gluco 2020-0 Yes [id number] Check [facility] se Meter 5-11 glucose ity of Kit 00:00: once daily [place] 00 before Medical breakfast; Branch ICD-10 code E11.9 blood sugar 2020-0 Yes [id number] Check [facility] diagnostic 5-11 glucose ity of (BLOOD 00:00: once daily [place] GLUCOSE 00 before Medical TEST) strip breakfast; Br anch ICD-10 code E11.9 Lancets Yes [id number] Check [facility] ers Misc 5-11 glucose ity of 00:00: once daily [place] 00 before Medical breakfast; Branch ICD-10 code E11.9 pravastatin Yes [id number] 10mg Take 1 [facility] 10 mg 5-11 [id number] tablet by ity of tablet 00:00: mouth [place] 00 every Medical other day. Branch metformin Yes [id number] 500mg Take 1 U nivers ER 500 mg 5-11 tablet by ity o f 24 hr 00:00: mouth 2 [place] tablet 00 (two) Medical times Branch daily with meals. Blood-Gluco Yes [id number] Check [facility] se Meter 5-11 glucose ity of Kit 00:00: once daily [place] 00 before Medical breakfast; Branch ICD-10 code E11.9 blood sugar Yes [id number] Check [facility] diagnostic 5-11 glucose ity of (BLOOD 00:00: once daily [place] GLUCOSE 00 before Medical TEST) strip breakfast; Br anch ICD-10 code E11.9 Lancets Yes [id number] Check [facility] ers Misc 5-11 glucose ity of 00:00: once daily [place] 00 before Medical breakfast; Branch ICD-10 code E11.9 pravastatin Yes [id number] 10mg Take 1 [facility] 10 mg 5-11 [id number] tablet by ity of tablet 00:00: mouth [place] 00 every Medical other day. Branch metformin 2020- Yes [id number] 500mg Take 1 U nivers ER 500 mg 5-11 tablet by ity o f 24 hr 00:00: mouth 2 [place] tablet 00 (two) Medical times Branch daily with meals. Blood-Gluco Yes [id number] Check [facility] se Meter 5-11 glucose ity of Kit 00:00: once daily [place] 00 before Medical breakfast; Branch ICD-10 code E11.9 blood sugar Yes [id number] Check [facility] diagnostic 5-11 glucose ity of (BLOOD 00:00: once daily [place] GLUCOSE 00 before Medical TEST) strip breakfast; Br anch ICD-10 code E11.9 Lancets Yes [id number] Check [facility] ers Misc 5-11 glucose ity of 00:00: once daily [place] 00 before Medical breakfast; Branch ICD-10 code E11.9 pravastatin 2020-0 Yes [id number] 10mg Take 1 [facility] 10 mg 5-11 [id number] tablet by ity of tablet 00:00: mouth [place] 00 every Medical other day. Branch metformin 2020-0 Yes [id number] 500mg Take 1 U nivers ER 500 mg 5-11 tablet by ity o f 24 hr 00:00: mouth 2 [place] tablet 00 (two) Medical times Branch daily with meals. Blood-Gluco 2020-0 Yes [id number] Check [facility] se Meter 5-11 glucose ity of Kit 00:00: once daily [place] 00 before Medical breakfast; Branch ICD-10 code E11.9 blood sugar 2020-0 Yes [id number] Check [facility] diagnostic 5-11 glucose ity of (BLOOD 00:00: once daily [place] GLUCOSE 00 before Medical TEST) strip breakfast; Br anch ICD-10 code E11.9 Lancets 2020-0 Yes [id number] Check [facility] ers Misc 5-11 glucose ity of 00:00: once daily [place] 00 before Medical breakfast; Branch ICD-10 code E11.9 pravastatin 2020-0 Yes [id number] 10mg Take 1 [facility] 10 mg 5-11 [id number] tablet by ity of tablet 00:00: mouth [place] 00 every Medical other day. Branch metformin 2020-0 Yes [id number] 500mg Take 1 U nivers ER 500 mg 5-11 tablet by ity o f 24 hr 00:00: mouth 2 [place] tablet 00 (two) Medical times Branch daily with meals. Blood-Gluco 2020-0 Yes [id number] Check [facility] se Meter 5-11 glucose ity of Kit 00:00: once daily [place] 00 before Medical breakfast; Branch ICD-10 code E11.9 blood sugar 2020-0 Yes [id number] Check [facility] diagnostic 5-11 glucose ity of (BLOOD 00:00: once daily [place] GLUCOSE 00 before Medical TEST) strip breakfast; Br anch ICD-10 code E11.9 Lancets 2020-0 Yes [id number] Check [facility] ers Misc 5-11 glucose ity of 00:00: once daily [place] 00 before Medical breakfast; Branch ICD-10 code E11.9 pravastatin 2020-0 Yes [id number] 10mg Take 1 [facility] 10 mg 5-11 [id number] tablet by ity of tablet 00:00: mouth [place] 00 every Medical other day. Branch metformin 2020-0 Yes [id number] 500mg Take 1 U nivers ER 500 mg 5-11 tablet by ity o f 24 hr 00:00: mouth 2 [place] tablet 00 (two) Medical times Branch daily with meals. Blood-Gluco 2020-0 Yes [id number] Check [facility] se Meter 5-11 glucose ity of Kit 00:00: once daily [place] 00 before Medical breakfast; Branch ICD-10 code E11.9 blood sugar 2020-0 Yes [id number] Check [facility] diagnostic 5-11 glucose ity of (BLOOD 00:00: once daily [place] GLUCOSE 00 before Medical TEST) strip breakfast; Br anch ICD-10 code E11.9 Lancets 0 Yes [id number] Check [facility] ers Misc 5-11 glucose ity of 00:00: once daily [place] 00 before Medical breakfast; Branch ICD-10 code E11.9 pravastatin 2020-0 Yes [id number] 10mg Take 1 [facility] 10 mg 5-11 [id number] tablet by ity of tablet 00:00: mouth [place] 00 every Medical other day. Branch metformin 2020-0 Yes [id number] 500mg Take 1 U nivers ER 500 mg 5-11 tablet by ity o f 24 hr 00:00: mouth 2 [place] tablet 00 (two) Medical times Branch daily with meals. Blood-Gluco 2020-0 Yes [id number] Check [facility] se Meter 5-11 glucose ity of Kit 00:00: once daily [place] 00 before Medical breakfast; Branch ICD-10 code E11.9 blood sugar 2020-0 Yes [id number] Check [facility] diagnostic 5-11 glucose ity of (BLOOD 00:00: once daily [place] GLUCOSE 00 before Medical TEST) strip breakfast; Br anch ICD-10 code E11.9 Lancets 2020-0 Yes [id number] Check [facility] ers Misc 5-11 glucose ity of 00:00: once daily [place] 00 before Medical breakfast; Branch ICD-10 code E11.9 pravastatin 2020-0 Yes [id number] 10mg Take 1 [facility] 10 mg 5-11 [id number] tablet by ity of tablet 00:00: mouth [place] 00 every Medical other day. Branch metformin 2020-0 Yes [id number] 500mg Take 1 U nivers ER 500 mg 5-11 tablet by ity o f 24 hr 00:00: mouth 2 [place] tablet 00 (two) Medical times Branch daily with meals. Blood-Gluco 2020-0 Yes [id number] Check [facility] se Meter 5-11 glucose ity of Kit 00:00: once daily [place] 00 before Medical breakfast; Branch ICD-10 code E11.9 blood sugar 2020-0 Yes [id number] Check [facility] diagnostic 5-11 glucose ity of (BLOOD 00:00: once daily [place] GLUCOSE 00 before Medical TEST) strip breakfast; Br anch ICD-10 code E11.9 Lancets 2020-0 Yes [id number] Check [facility] ers Misc 5-11 glucose ity of 00:00: once daily [place] 00 before Medical breakfast; Branch ICD-10 code E11.9 pravastatin 2020-0 Yes [id number] 10mg Take 1 [facility] 10 mg 5-11 [id number] tablet by ity of tablet 00:00: mouth [place] 00 every Medical other day. Branch metformin 2020-0 Yes [id number] 500mg Take 1 U nivers ER 500 mg 5-11 tablet by ity o f 24 hr 00:00: mouth 2 [place] tablet 00 (two) Medical times Branch daily with meals. Blood-Gluco 2020-0 Yes [id number] Check [facility] se Meter 5-11 glucose ity of Kit 00:00: once daily [place] 00 before Medical breakfast; Branch ICD-10 code E11.9 blood sugar 2020-0 Yes [id number] Check [facility] diagnostic 5-11 glucose ity of (BLOOD 00:00: once daily [place] GLUCOSE 00 before Medical TEST) strip breakfast; Br anch ICD-10 code E11.9 Lancets 2020-0 Yes [id number] Check [facility] ers Misc 5-11 glucose ity of 00:00: once daily [place] 00 before Medical breakfast; Branch ICD-10 code E11.9 pravastatin 2020-0 Yes [id number] 10mg Take 1 [facility] 10 mg 5-11 [id number] tablet by ity of tablet 00:00: mouth [place] 00 every Medical other day. Branch metformin 2020-0 Yes [id number] 500mg Take 1 U nivers ER 500 mg 5-11 tablet by ity o f 24 hr 00:00: mouth 2 [place] tablet 00 (two) Medical times Branch daily with meals. Blood-Gluco 2020-0 Yes [id number] Check [facility] se Meter 5-11 glucose ity of Kit 00:00: once daily [place] 00 before Medical breakfast; Branch ICD-10 code E11.9 blood sugar 2020-0 Yes [id number] Check [facility] diagnostic 5-11 glucose ity of (BLOOD 00:00: once daily [place] GLUCOSE 00 before Medical TEST) strip breakfast; Br oma ICD-10 code E11.9 Lancets 2020-0 Yes [id number] Check [facility] ers Misc 5-11 glucose ity of 00:00: once daily [place] 00 before Medical breakfast; Branch ICD-10 code E11.9 pravastatin 2020-0 Yes [id number] 10mg Take 1 [facility] 10 mg 5-11 [id number] tablet by ity of tablet 00:00: mouth [place] 00 every Medical other day. Branch metformin 2020-0 Yes [id number] 500mg Take 1 U nivers ER 500 mg 5-11 tablet by ity o f 24 hr 00:00: mouth 2 [place] tablet 00 (two) Medical times Branch daily with meals. Blood-Gluco 2020-0 Yes [id number] Check [facility] se Meter 5-11 glucose ity of Kit 00:00: once daily [place] 00 before Medical breakfast; Branch ICD-10 code E11.9 blood sugar 0 Yes [id number] Check [facility] diagnostic 5-11 glucose ity of (BLOOD 00:00: once daily [place] GLUCOSE 00 before Medical TEST) strip breakfast; Br oma ICD-10 code E11.9 Lancets 2020-0 Yes [id number] Check [facility] ers Misc 5-11 glucose ity of 00:00: once daily [place] 00 before Medical breakfast; Branch ICD-10 code E11.9 pravastatin 2020-0 Yes [id number] 10mg Take 1 [facility] 10 mg 5-11 [id number] tablet by ity of tablet 00:00: mouth [place] 00 every Medical other day. Branch metformin 2020-0 Yes [id number] 500mg Take 1 U nivers ER 500 mg 5-11 tablet by ity o f 24 hr 00:00: mouth 2 [place] tablet 00 (two) Medical times Branch daily with meals. Blood-Gluco 2020-0 Yes [id number] Check [facility] se Meter 5-11 glucose ity of Kit 00:00: once daily [place] 00 before Medical breakfast; Branch ICD-10 code E11.9 blood sugar 2020-0 Yes [id number] Check [facility] diagnostic 5-11 glucose ity of (BLOOD 00:00: once daily [place] GLUCOSE 00 before Medical TEST) strip breakfast; Br anch ICD-10 code E11.9 Lancets 2020-0 Yes [id number] Check [facility] ers Misc 5-11 glucose ity of 00:00: once daily [place] 00 before Medical breakfast; Branch ICD-10 code E11.9 pravastatin 2020-0 Yes [id number] 10mg Take 1 [facility] 10 mg 5-11 [id number] tablet by ity of tablet 00:00: mouth [place] 00 every Medical other day. Branch metformin 2020- Yes [id number] 500mg Take 1 U nivers ER 500 mg 5-11 tablet by ity o f 24 hr 00:00: mouth 2 [place] tablet 00 (two) Medical times Branch daily with meals. Blood-Gluco 2020- Yes [id number] Check [facility] se Meter 5-11 glucose ity of Kit 00:00: once daily [place] 00 before Medical breakfast; Branch ICD-10 code E11.9 blood sugar 2020- Yes [id number] Check [facility] diagnostic 5-11 glucose ity of (BLOOD 00:00: once daily [place] GLUCOSE 00 before Medical TEST) strip breakfast; Br anch ICD-10 code E11.9 Lancets 2020-0 Yes [id number] Check [facility] ers Misc 5-11 glucose ity of 00:00: once daily [place] 00 before Medical breakfast; Branch ICD-10 code E11.9 pravastatin 2020-0 Yes [id number] 10mg Take 1 [facility] 10 mg 5-11 [id number] tablet by ity of tablet 00:00: mouth [place] 00 every Medical other day. Branch metformin 2020-0 Yes [id number] 500mg Take 1 U nivers ER 500 mg 5-11 tablet by ity o f 24 hr 00:00: mouth 2 [place] tablet 00 (two) Medical times Branch daily with meals. Blood-Gluco 2020- Yes [id number] Check [facility] se Meter 5-11 glucose ity of Kit 00:00: once daily [place] 00 before Medical breakfast; Branch ICD-10 code E11.9 blood sugar 0 Yes [id number] Check [facility] diagnostic 5-11 glucose ity of (BLOOD 00:00: once daily [place] GLUCOSE 00 before Medical TEST) strip breakfast; Br anch ICD-10 code E11.9 Lancets 2020-0 Yes [id number] Check [facility] ers Misc 5-11 glucose ity of 00:00: once daily [place] 00 before Medical breakfast; Branch ICD-10 code E11.9 pravastatin 2020-0 Yes [id number] 10mg Take 1 [facility] 10 mg 5-11 [id number] tablet by ity of tablet 00:00: mouth [place] 00 every Medical other day. Branch metformin 2020-0 Yes [id number] 500mg Take 1 U nivers ER 500 mg 5-11 tablet by ity o f 24 hr 00:00: mouth 2 [place] tablet 00 (two) Medical times [place] daily with meals. Blood-Gluco 2020-0 Yes [id number] Check [facility] se Meter 5-11 glucose ity of Kit 00:00: once daily [place] 00 before Medical breakfast; Branch ICD-10 code E11.9 blood sugar 2020-0 Yes [id number] Check [facility] diagnostic 5-11 glucose ity of (BLOOD 00:00: once daily [place] GLUCOSE 00 before Medical TEST) strip breakfast; [facility] ICD-10 code E11.9 Lancets 2020-0 Yes [id number] Check Univ ers Misc 5-11 glucose ity of 00:00: once daily [place] 00 before Medical breakfast; Branch ICD-10 code E11.9 pravastatin 2020-0 Yes [id number] 10mg Take 1 [facility] 10 mg 5-11 [id number] tablet by ity of tablet 00:00: mouth [place] 00 every Medical other day. Branch metformin 2020-0 Yes [id number] 500mg Take 1 U nivers ER 500 mg 5-11 tablet by ity o f 24 hr 00:00: mouth 2 [place] tablet 00 (two) Medical times [place] daily with meals. LEVOTHYROXI 2020-0 Yes [id number] TAKE 1 [facility] [place] 50 mcg 5-05 TABLET BY ity o f tablet 00:00: MOUTH [place] 00 EVERY DAY Medical IN THE [place] MORNING LEVOTHYROXI 2020-0 Yes [id number] TAKE 1 [facility] 50 mcg 5-05 TABLET BY ity o f tablet 00:00: MOUTH [place] 00 EVERY DAY Medical IN THE [place] MORNING LEVOTHYROXI 2020-0 Yes [id number] TAKE 1 [facility] [place] 50 mcg 5-05 TABLET BY ity o f tablet 00:00: MOUTH [place] 00 EVERY DAY Medical IN THE [place] MORNING LEVOTHYROXI 2020-0 Yes [id number] TAKE 1 [facility] [place] 50 mcg 5-05 TABLET BY ity o f tablet 00:00: MOUTH [place] 00 EVERY DAY Medical IN THE [facility] LEVOTHYROXI Yes [id number] TAKE 1 [facility] NE 50 mcg 5-05 TABLET BY ity o f tablet 00:00: MOUTH [place] 00 EVERY DAY Medical IN THE [facility] LEVOTHYROXI Yes [id number] TAKE 1 [facility] NE 50 mcg 5-05 TABLET BY ity o f tablet 00:00: MOUTH [place] 00 EVERY DAY Medical IN THE [facility] LEVOTHYROXI Yes [id number] TAKE 1 [facility] NE 50 mcg 5-05 TABLET BY ity o f tablet 00:00: MOUTH [place] 00 EVERY DAY Medical IN THE [facility] LEVOTHYROXI Yes [id number] TAKE 1 [facility] NE 50 mcg 5-05 TABLET BY ity o f tablet 00:00: MOUTH [place] 00 EVERY DAY Medical IN THE [facility] LEVOTHYROXI Yes [id number] TAKE 1 [facility] NE 50 mcg 5-05 TABLET BY ity o f tablet 00:00: MOUTH [place] 00 EVERY DAY Medical IN THE [facility] LEVOTHYROXI Yes [id number] TAKE 1 [facility] NE 50 mcg 5-05 TABLET BY ity o f tablet 00:00: MOUTH [place] 00 EVERY DAY Medical IN THE [facility] LEVOTHYROXI Yes [id number] TAKE 1 [facility] NE 50 mcg 5-05 TABLET BY ity o f tablet 00:00: MOUTH [place] 00 EVERY DAY Medical IN THE [facility] LEVOTHYROXI 2020- No [id number] TAKE 1 [facility] NE 50 mcg 5-05 06-21 TABLET BY ity of tablet 00:00: 00:00 MOUTH [place] 00 :00 EVERY DAY Medical IN THE [place] MORNING metformin 2020-0 Yes [facility] ER 750 mg 5-03 ity of 24 hr 00:00: [place] tablet 00 [facility] metformin 2020-0 Yes [facility] ER 750 mg 5-03 ity of 24 hr 00:00: [place] tablet 00 [facility] metformin 2020-0 Yes [facility] ER 750 mg 5-03 ity of 24 hr 00:00: [place] tablet 00 [facility] metformin 2020-0 Yes [facility] ER 750 mg 5-03 ity of 24 hr 00:00: [place] tablet 00 [facility] metformin 2020-0 Yes [facility] ER 750 mg 5-03 ity of 24 hr 00:00: [place] tablet 00 [facility] metformin 2021-0 Yes [facility] ER 750 mg 5-03 ity of 24 hr 00:00: [place] tablet 00 Medical Branch metformin 2020-0 Yes [facility] ER 750 mg 5-03 ity of 24 hr 00:00: [place] tablet 00 Medical Branch TRAZODONE 1-0 Yes [id number] TAKE 1 U nivers 100 mg 3-18 TABLET BY ity of tablet 00:00: MOUTH EVERY DAY Medical AT BEDTIME Branch NEEDED FOR INSOMNIA TRAZODONE 2020-0 Yes [id number] TAKE 1 U nivers 100 mg 3-18 TABLET BY ity of tablet 00:00: MOUTH EVERY DAY Medical AT BEDTIME Branch NEEDED FOR INSOMNIA TRAZODONE 2020-0 Yes [id number] TAKE 1 [facility] nivers 100 mg 3-18 TABLET BY ity of tablet 00:00: MOUTH EVERY DAY Medical AT BEDTIME Branch NEEDED FOR INSOMNIA TRAZODONE 2020-0 Yes [id number] TAKE 1 [facility] nivers 100 mg 3-18 TABLET BY ity of tablet 00:00: MOUTH EVERY DAY Medical AT BEDTIME Branch NEEDED FOR INSOMNIA TRAZODONE 2020-0 Yes [id number] TAKE 1 [facility] nivers 100 mg 3-18 TABLET BY ity of tablet 00:00: MOUTH EVERY DAY Medical AT BEDTIME Branch NEEDED FOR INSOMNIA TRAZODONE 2020-0 Yes [id number] TAKE 1 [facility] nivers 100 mg 3-18 TABLET BY ity of tablet 00:00: MOUTH EVERY DAY Medical AT BEDTIME Branch NEEDED FOR INSOMNIA TRAZODONE 2020-0 Yes [id number] TAKE 1 [facility] nivers 100 mg 3-18 TABLET BY ity of tablet 00:00: MOUTH EVERY DAY Medical AT BEDTIME Branch NEEDED FOR INSOMNIA TRAZODONE 2020-0 Yes [id number] TAKE 1 [facility] nivers 100 mg 3-18 TABLET BY ity of tablet 00:00: MOUTH EVERY DAY Medical AT BEDTIME Branch NEEDED FOR INSOMNIA TRAZODONE 2020-0 Yes [id number] TAKE 1 [facility] nivers 100 mg 3-18 TABLET BY ity of tablet 00:00: MOUTH EVERY DAY Medical AT BEDTIME Branch NEEDED FOR INSOMNIA TRAZODONE 2020-0 Yes [id number] TAKE 1 [facility] nivers 100 mg 3-18 TABLET BY ity of tablet 00:00: MOUTH EVERY DAY Medical AT BEDTIME Branch NEEDED FOR INSOMNIA TRAZODONE 1-0 Yes [id number] TAKE 1 [facility] nivers 100 mg 3-18 TABLET BY ity of tablet 00:00: MOUTH EVERY DAY Medical AT BEDTIME Branch NEEDED FOR INSOMNIA TRAZODONE 1-0 Yes [id number] TAKE 1 [facility] nivers 100 mg 3-18 TABLET BY ity of tablet 00:00: MOUTH EVERY DAY Medical AT BEDTIME Branch NEEDED FOR INSOMNIA TRAZODONE 2020-0 Yes [id number] TAKE 1 [facility] nivers 100 mg 3-18 TABLET BY ity of tablet 00:00: MOUTH EVERY DAY Medical AT BEDTIME Branch NEEDED FOR INSOMNIA TRAZODONE 2020-0 Yes [id number] TAKE 1 [facility] nivers 100 mg 3-18 TABLET BY ity of tablet 00:00: MOUTH EVERY DAY Medical AT BEDTIME Branch NEEDED FOR INSOMNIA TRAZODONE 2020-0 Yes [id number] TAKE 1 U nivers 100 mg 3-18 TABLET BY ity of tablet 00:00: MOUTH EVERY DAY Medical AT BEDTIME Branch NEEDED FOR INSOMNIA TRAZODONE 1-0 Yes [id number] TAKE 1 [facility] nivers 100 mg 3-18 TABLET BY ity of tablet 00:00: MOUTH EVERY DAY Medical AT BEDTIME Branch NEEDED FOR INSOMNIA TRAZODONE 1-0 Yes [id number] TAKE 1 [facility] nivers 100 mg 3-18 TABLET BY ity of tablet 00:00: MOUTH EVERY DAY Medical AT BEDTIME Branch NEEDED FOR INSOMNIA TRAZODONE 1-0 Yes [id number] TAKE 1 [facility] nivers 100 mg 3-18 TABLET BY ity of tablet 00:00: MOUTH EVERY DAY Medical AT BEDTIME Branch NEEDED FOR INSOMNIA TRAZODONE 1-0 Yes [id number] TAKE 1 [facility] nivers 100 mg 3-18 TABLET BY ity of tablet 00:00: MOUTH 00 EVERY DAY Medical AT BEDTIME Branch NEEDED FOR INSOMNIA TRAZODONE 1-0 Yes [id number] TAKE 1 [facility] nivers 100 mg 3-18 TABLET BY ity of tablet 00:00: MOUTH EVERY DAY Medical AT BEDTIME Branch NEEDED FOR INSOMNIA TRAZODONE 2021-0 Yes [id number] TAKE 1 [facility] nivers 100 mg 3-18 TABLET BY ity of tablet 00:00: MOUTH 00 EVERY DAY Medical AT BEDTIME [place] NEEDED FOR INSOMNIA TRAZODONE 0 Yes [id number] TAKE 1 [facility] nivers 100 mg 3-18 TABLET BY ity of tablet 00:00: MOUTH 00 EVERY DAY Medical AT BEDTIME [place] NEEDED FOR INSOMNIA metroNIDAZO 2020- No 500mg 500 mg, IV [facility] LE in NaCl 11-14 Infusion, ity of (iso-os) 21:45: 09:44 ONCE, 1 [place] (FLAGYL 00 :00 dose, [facility] RTU 11/14/20 at [facility] IV infusion 1545, 100 500 mg mL
Reas on for Anti-Infec tive: Documented Infection< br>Documen cesar Infection Site: Abdominal< br>Duratio n of Therapy: Other (see Comments) iohexol 2020- No 100mL 100 mL, Unive rs (OMNIPAQUE 11-14- Intravenou it y of 350 20:00: 19:45 s, ONCE, 1 [place] BULK-100 00 :00 dose, [facility] mL) 11/14/20 at [place] injection 1400, 100 mL Routine ciprofloxac 0 Yes [id number] 500mg Take 1 [facility] in HCl 500 2-28 tablet by ity of mg tablet 00:00: mouth (two) Medical times Branch daily. metroNIDAZO 0 Yes [id number] 500mg Take 1 [facility] LE 500 mg 2-28 tablet by ity o f tablet 00:00: mouth (two) Medical times Branch daily. ciprofloxac 2020-0 Yes [id number] 500mg Take 1 [facility] in HCl 500 2-28 tablet by ity of mg tablet 00:00: mouth (two) Medical times Branch daily. metroNIDAZO 2020-0 Yes [id number] 500mg Take 1 [facility] LE 500 mg 2-28 tablet by ity o f tablet 00:00: mouth 2 (two) Medical times Branch daily. ciprofloxac 2020-0 Yes [id number] 500mg Take 1 [facility] in HCl 500 2-28 tablet by ity of mg tablet 00:00: mouth (two) Medical times Branch daily. metroNIDAZO 1-0 Yes [id number] 500mg Take 1 [facility] LE 500 mg 2-28 tablet by ity o f tablet 00:00: mouth (two) Medical times Branch daily. ciprofloxac 1-0 Yes [id number] 500mg Take 1 [facility] in HCl 500 2-28 tablet by ity of mg tablet 00:00: mouth (two) Medical times Branch daily. metroNIDAZO 2020-0 Yes [id number] 500mg Take 1 [facility] LE 500 mg 2-28 tablet by ity o f tablet 00:00: mouth (two) Medical times Branch daily. ciprofloxac 1-0 Yes [id number] 500mg Take 1 [facility] in HCl 500 2-28 tablet by ity of mg tablet 00:00: mouth (two) Medical times Branch daily. metroNIDAZO 2020-0 Yes [id number] 500mg Take 1 [facility] LE 500 mg 2-28 tablet by ity o f tablet 00:00: mouth (two) Medical times Branch daily. ciprofloxac 2020-0 Yes [id number] 500mg Take 1 [facility] in HCl 500 2-28 tablet by ity of mg tablet 00:00: mouth (two) Medical times Branch daily. metroNIDAZO 2020-0 Yes [id number] 500mg Take 1 [facility] LE 500 mg 2-28 tablet by ity o f tablet 00:00: mouth (two) Medical times Branch daily. ciprofloxac 1-0 Yes [id number] 500mg Take 1 [facility] in HCl 500 2-28 tablet by ity of mg tablet 00:00: mouth (two) Medical times Branch daily. metroNIDAZO 1-0 Yes [id number] 500mg Take 1 [facility] LE 500 mg 2-28 tablet by ity o f tablet 00:00: mouth (two) Medical times Branch daily. ciprofloxac 2021-0 Yes [id number] 500mg Take 1 [facility] in HCl 500 2-28 tablet by ity of mg tablet 00:00: mouth (two) Medical times Branch daily. metroNIDAZO 1-0 Yes [id number] 500mg Take 1 [facility] LE 500 mg 2-28 tablet by ity o f tablet 00:00: mouth (two) Medical times Branch daily. ciprofloxac 1-0 Yes [id number] 500mg Take 1 [facility] in HCl 500 2-28 tablet by ity of mg tablet 00:00: mouth (two) Medical times Branch daily. metroNIDAZO 1-0 Yes [id number] 500mg Take 1 [facility] LE 500 mg 2-28 tablet by ity o f tablet 00:00: mouth (two) Medical times Branch daily. ciprofloxac 2020-0 Yes [id number] 500mg Take 1 [facility] in HCl 500 2-28 tablet by ity of mg tablet 00:00: mouth (two) Medical times Branch daily. metroNIDAZO 1-0 Yes [id number] 500mg Take 1 [facility] LE 500 mg 2-28 tablet by ity o f tablet 00:00: mouth (two) Medical times Branch daily. ciprofloxac 2020-0 Yes [id number] 500mg Take 1 [facility] in HCl 500 2-28 tablet by ity of mg tablet 00:00: mouth (two) Medical times Branch daily. metroNIDAZO 1-0 Yes [id number] 500mg Take 1 [facility] LE 500 mg 2-28 tablet by ity o f tablet 00:00: mouth (two) Medical times Branch daily. ciprofloxac 1-0 Yes [id number] 500mg Take 1 [facility] in HCl 500 2-28 tablet by ity of mg tablet 00:00: mouth (two) Medical times Branch daily. metroNIDAZO 1-0 Yes [id number] 500mg Take 1 [facility] LE 500 mg 2-28 tablet by ity o f tablet 00:00: mouth (two) Medical times Branch daily. ciprofloxac 2021-0 Yes [id number] 500mg Take 1 [facility] in HCl 500 2-28 tablet by ity of mg tablet 00:00: mouth (two) Medical times Branch daily. metroNIDAZO 2021-0 Yes [id number] 500mg Take 1 [facility] LE 500 mg 2-28 tablet by ity o f tablet 00:00: mouth (two) Medical times Branch daily. ciprofloxac 2021-0 Yes [id number] 500mg Take 1 [facility] in HCl 500 2-28 tablet by ity of mg tablet 00:00: mouth (two) Medical times Branch daily. metroNIDAZO 2021-0 Yes [id number] 500mg Take 1 [facility] LE 500 mg 2-28 tablet by ity o f tablet 00:00: mouth (two) Medical times Branch daily. ciprofloxac 2021-0 Yes [id number] 500mg Take 1 [facility] in HCl 500 2-28 tablet by ity of mg tablet 00:00: mouth (two) Medical times Branch daily. metroNIDAZO 2021-0 Yes [id number] 500mg Take 1 [facility] LE 500 mg 2-28 tablet by ity o f tablet 00:00: mouth (two) Medical times Branch daily. ciprofloxac 2021-0 Yes [id number] 500mg Take 1 [facility] in HCl 500 2-28 tablet by ity of mg tablet 00:00: mouth (two) Medical times Branch daily. metroNIDAZO 2021-0 Yes [id number] 500mg Take 1 [facility] LE 500 mg 2-28 tablet by ity o f tablet 00:00: mouth (two) Medical times Branch daily. ciprofloxac 1-0 Yes [id number] 500mg Take 1 [facility] in HCl 500 2-28 tablet by ity of mg tablet 00:00: mouth (two) Medical times Branch daily. metroNIDAZO 2021-0 Yes [id number] 500mg Take 1 [facility] LE 500 mg 2-28 tablet by ity o f tablet 00:00: mouth (two) Medical times Branch daily. ciprofloxac 2021-0 Yes [id number] 500mg Take 1 [facility] in HCl 500 2-28 tablet by ity of mg tablet 00:00: mouth (two) Medical times Branch daily. metroNIDAZO 2021-0 Yes [id number] 500mg Take 1 [facility] LE 500 mg 2-28 tablet by ity o f tablet 00:00: mouth (two) Medical times Branch daily. ciprofloxac 2021-0 Yes [id number] 500mg Take 1 [facility] in HCl 500 2-28 tablet by ity of mg tablet 00:00: mouth (two) Medical times Branch daily. metroNIDAZO 2020-0 Yes [id number] 500mg Take 1 [facility] LE 500 mg 2-28 tablet by ity o f tablet 00:00: mouth (two) Medical times Branch daily. ciprofloxac 2020-0 Yes [id number] 500mg Take 1 [facility] in HCl 500 2-28 tablet by ity of mg tablet 00:00: mouth (two) Medical times Branch daily. metroNIDAZO 2020-0 Yes [id number] 500mg Take 1 [facility] LE 500 mg 2-28 tablet by ity o f tablet 00:00: mouth (two) Medical times Branch daily. ciprofloxac 2020-0 Yes [id number] 500mg Take 1 [facility] in HCl 500 2-28 tablet by ity of mg tablet 00:00: mouth (two) Medical times Branch daily. metroNIDAZO 2020-0 Yes [id number] 500mg Take 1 [facility] LE 500 mg 2-28 tablet by ity o f tablet 00:00: mouth (two) Medical times Branch daily. ciprofloxac 2020-0 Yes [id number] 500mg Take 1 [facility] in HCl 500 2-28 tablet by ity of mg tablet 00:00: mouth (two) Medical times Branch daily. metroNIDAZO 2020-0 Yes [id number] 500mg Take 1 [facility] LE 500 mg 2-28 tablet by ity o f tablet 00:00: mouth (two) Medical times Branch daily. ciprofloxac 2020-0 Yes [id number] 500mg Take 1 [facility] in HCl 500 2-28 tablet by ity of mg tablet 00:00: mouth (two) Medical times Branch daily. metroNIDAZO 2020-0 Yes [id number] 500mg Take 1 [facility] LE 500 mg 2-28 tablet by ity o f tablet 00:00: mouth (two) Medical times Branch daily. traMADoL 50 2020-0 2020- No [id number] 50mg Take 1 [facility] vers mg tablet 2-28 03-08 tablet by ity of 00:00: 05:59 mouth [place] 00 :00 every 6 Medical (six) Branch hours as needed for Pain (scale 4-6) for up to 7 days. Indication s: acute pain gabapentin 202-0 Yes [id number] 300mg Take 3 [facility] 100 mg 2-05 [id number] capsules it[facility] of capsule 00:00: [place] mouth 3 [place] 00 (three) Medical times Branch daily. gabapentin 202-0 Yes [id number] 300mg Take 3 [facility] 100 mg 2-05 [id number] capsules [facility]y of capsule 00:00: by mouth 3 [place] 00 (three) Medical times Branch daily. gabapentin 202-0 Yes [id number] 300mg Take 3 [facility] 100 mg 2-05 [id number] capsules [facility] of capsule 00:00: by mouth 3 [place] 00 (three) Medical times Branch daily. gabapentin 202-0 Yes [id number] 300mg Take 3 [facility] 100 mg 2-05 [id number] capsules ity of capsule 00:00: by mouth 3 [place] 00 (three) Medical times Branch daily. gabapentin 2020-0 Yes [id number] 300mg Take 3 [facility] 100 mg 2-05 [id number] capsules ity of capsule 00:00: by mouth 3 [place] 00 (three) Medical times Branch daily. gabapentin 2020-0 Yes [id number] 300mg Take 3 [facility] 100 mg 2-05 [id number] capsules ity of capsule 00:00: by mouth 3 [place] 00 (three) Medical times Branch daily. gabapentin 2020-0 Yes [id number] 300mg Take 3 [facility] 100 mg 2-05 [id number] capsules [facility]y of capsule 00:00: by mouth 3 [place] 00 (three) Medical times Branch daily. gabapentin 202-0 Yes [id number] 300mg Take 3 [facility] 100 mg 2-05 [id number] capsules [facility]y of capsule 00:00: by mouth 3 [place] 00 (three) Medical times Branch daily. gabapentin 2021-0 Yes [id number] 300mg Take 3 [facility] 100 mg 2-05 [id number] capsules ity of capsule 00:00: by mouth 3 [place] 00 (three) Medical times Branch daily. gabapentin 2021-0 Yes [id number] 300mg Take 3 [facility] 100 mg 2-05 [id number] capsules ity of capsule 00:00: by mouth 3 [place] 00 (three) Medical times Branch daily. gabapentin 202-0 Yes [id number] 300mg Take 3 [facility] 100 mg 2-05 [id number] capsules ity of capsule 00:00: by mouth 3 [place] 00 (three) Medical times Branch daily. gabapentin 2021-0 Yes [id number] 300mg Take 3 [facility] 100 mg 2-05 [id number] capsules ity of capsule 00:00: by mouth 3 [place] 00 (three) Medical times Branch daily. gabapentin 2021-0 Yes [id number] 300mg Take 3 [facility] 100 mg 2-05 [id number] capsules [facility]y of capsule 00:00: by mouth 3 [place] 00 (three) Medical times Branch daily. gabapentin 2021-0 Yes [id number] 300mg Take 3 [facility] 100 mg 2-05 [id number] capsules ity of capsule 00:00: by mouth 3 [place] 00 (three) Medical times Branch daily. gabapentin 2021-0 Yes [id number] 300mg Take 3 [facility] 100 mg 2-05 [id number] capsules ity of capsule 00:00: by mouth 3 [place] 00 (three) Medical times Branch daily. gabapentin 2021-0 Yes [id number] 300mg Take 3 [facility] 100 mg 2-05 [id number] capsules ity of capsule 00:00: by mouth 3 [place] 00 (three) Medical times Branch daily. gabapentin 2021-0 Yes [id number] 300mg Take 3 [facility] 100 mg 2-05 [id number] capsules ity of capsule 00:00: by mouth 3 [place] 00 (three) Medical times Branch daily. gabapentin 2021-0 Yes [id number] 300mg Take 3 [facility] 100 mg 2-05 [id number] capsules ity of capsule 00:00: by mouth 3 [place] 00 (three) Medical times Branch daily. gabapentin 2021-0 Yes [id number] 300mg Take 3 [facility] 100 mg 2-05 [id number] capsules ity of capsule 00:00: by mouth 3 [place] 00 (three) Medical times Branch daily. gabapentin 2021-0 Yes [id number] 300mg Take 3 [facility] 100 mg 2-05 [id number] capsules ity of capsule 00:00: by mouth 3 [place] 00 (three) Medical times Branch daily. gabapentin 2021-0 Yes [id number] 300mg Take 3 [facility] 100 mg 2-05 [id number] capsules ity of capsule 00:00: by mouth 3 [place] 00 (three) Medical times Branch daily. gabapentin 2021-0 Yes [id number] 300mg Take 3 [facility] 100 mg 2-05 [id number] capsules ity of capsule 00:00: by mouth 3 [place] 00 (three) Medical times Branch daily. gabapentin 2021-0 Yes [id number] 300mg Take 3 [facility] 100 mg 2-05 [id number] capsules ity of capsule 00:00: by mouth 3 [place] 00 (three) Medical times Branch daily. gabapentin 2021-0 Yes [id number] 300mg Take 3 [facility] 100 mg 2-05 [id number] capsules ity of capsule 00:00: by mouth 3 [place] 00 (three) Medical times Branch daily. gabapentin 202-0 Yes [id number] 300mg Take 3 [facility] 100 mg 2-05 [id number] capsules ity of capsule 00:00: by mouth 3 [place] 00 (three) Medical times Branch daily. gabapentin 202-0 Yes [id number] 300mg Take 3 [facility] 100 mg 2-05 [id number] capsules [facility]y of capsule 00:00: by mouth 3 [place] 00 (three) Medical times Branch daily. gabapentin 202-0 Yes [id number] 300mg Take 3 [facility] 100 mg 2-05 [id number] capsules ity of capsule 00:00: by mouth 3 [place] 00 (three) Medical times Branch daily. gabapentin 2021-0 Yes [id number] 300mg Take 3 [facility] 100 mg 1-05 [id number] capsules ity of capsule 00:00: by mouth 3 [place] 00 (three) Medical times Branch daily. gabapentin 202-0 Yes [id number] 300mg Take 3 [facility] 100 mg 1-05 [id number] capsules ity of capsule 00:00: by mouth 3 [place] 00 (three) Medical times Branch daily. gabapentin 2021-0 Yes [id number] 300mg Take 3 [facility] 100 mg 1-05 [id number] capsules [facility]y of capsule 00:00: by mouth 3 [place] 00 (three) Medical times Branch daily. gabapentin 2021-0 Yes [id number] 300mg Take 3 [facility] 100 mg 1-05 [id number] capsules [facility]y of capsule 00:00: by mouth 3 [place] 00 (three) Medical times Branch daily. gabapentin 2021-0 Yes [id number] 300mg Take 3 [facility] 100 mg 1-05 [id number] capsules [facility]y of capsule 00:00: by mouth 3 [place] 00 (three) Medical times Branch daily. gabapentin 2021-0 Yes [id number] 300mg Take 3 [facility] 100 mg 1-05 [id number] capsules [facility] of capsule 00:00: by mouth 3 [place] 00 (three) Medical times Branch daily. gabapentin 2020-0 Yes [id number] 300mg Take 3 [facility] 100 mg 1-05 [id number] capsules [facility] of capsule 00:00: by mouth 3 [place] 00 (three) Medical times Branch daily. gabapentin 2020-0 Yes [id number] 300mg Take 3 [facility] 100 mg 1-05 [id number] capsules [facility] of capsule 00:00: by mouth 3 [place] 00 (three) Medical times Branch daily. gabapentin 2020-0 Yes [id number] 300mg Take 3 [facility] 100 mg 1-05 [id number] capsules [facility]y of capsule 00:00: by mouth 3 [place] 00 (three) Medical times Branch daily. gabapentin 2020-0 Yes [id number] 300mg Take 3 [facility] 100 mg 1-05 [id number] capsules ity of capsule 00:00: by mouth 3 [place] 00 (three) Medical times Branch daily. gabapentin 2020-0 Yes [id number] 300mg Take 3 [facility] 100 mg 1-05 [id number] capsules [facility]y of capsule 00:00: by mouth 3 [place] 00 (three) Medical times Branch daily. gabapentin 2020-0 Yes [id number] 300mg Take 3 [facility] 100 mg 1-05 [id number] capsules ity of capsule 00:00: by mouth 3 [place] 00 (three) Medical times Branch daily. gabapentin 2020-0 Yes [id number] 300mg Take 3 [facility] 100 mg 1-05 [id number] capsules [facility]y of capsule 00:00: by mouth 3 [place] 00 (three) Medical times Branch daily. gabapentin 2020-0 2021- No [id number] 300mg Take 3 [facility] 100 mg 1-05 02-05 [id number] capsules ity of capsule 00:00: 00:00 by mouth 3 [place] 00 :00 (three) Medical times Branch daily. DEXILANT 60 2019- Yes [id number] 60mg TAKE 1 [facility] mg capsule 2-22 CAPSULE BY ity of 00:00: MOUTH [place] 00 DAILY. Medical STOP Branch ESOMEPRAZO LE. DEXILANT 60 2019- Yes [id number] 60mg TAKE 1 [facility] mg capsule 2-22 CAPSULE BY ity of 00:00: MOUTH [place] 00 DAILY. Medical STOP Branch ESOMEPRAZO LE. DEXILANT 60 2019- Yes [id number] 60mg TAKE 1 [facility] mg capsule 2-22 CAPSULE BY ity of 00:00: MOUTH [place] 00 DAILY. Medical STOP Branch ESOMEPRAZO LE. DEXILANT 60 2019- Yes [id number] 60mg TAKE 1 [facility] mg capsule 2-22 CAPSULE BY ity of 00:00: MOUTH [place] 00 DAILY. Medical STOP Branch ESOMEPRAZO LE. DEXILANT 60 2019-09 Yes [id number] 60mg TAKE 1 [facility] mg capsule 2-22 CAPSULE BY ity of 00:00: MOUTH [place] 00 DAILY. Medical STOP Branch ESOMEPRAZO LE. DEXILANT 60 2019-09 Yes [id number] 60mg TAKE 1 [facility] mg capsule 2-22 CAPSULE BY ity of 00:00: MOUTH [place] 00 DAILY. Medical STOP Branch ESOMEPRAZO LE. DEXILANT 60 2019-09 Yes [id number] 60mg TAKE 1 [facility] mg capsule 2-22 CAPSULE BY ity of 00:00: MOUTH [place] 00 DAILY. Medical STOP Branch ESOMEPRAZO LE. DEXILANT 60 2019-09 Yes [id number] 60mg TAKE 1 [facility] mg capsule 2-22 CAPSULE BY ity of 00:00: MOUTH [place] 00 DAILY. Medical STOP Branch ESOMEPRAZO LE. DEXILANT 60 2019-09 Yes [id number] 60mg TAKE 1 [facility] mg capsule 2-22 CAPSULE BY ity of 00:00: MOUTH [place] 00 DAILY. Medical STOP Branch ESOMEPRAZO LE. DEXILANT 60 2019-09 Yes [id number] 60mg TAKE 1 [facility] mg capsule 2-22 CAPSULE BY ity of 00:00: MOUTH [place] 00 DAILY. Medical STOP Branch ESOMEPRAZO LE. DEXILANT 60 2019-09 Yes [id number] 60mg TAKE 1 [facility] mg capsule 2-22 CAPSULE BY ity of 00:00: MOUTH [place] 00 DAILY. Medical STOP Branch ESOMEPRAZO LE. DEXILANT 60 2019-09 Yes [id number] 60mg TAKE 1 [facility] mg capsule 2-22 CAPSULE BY ity of 00:00: MOUTH [place] 00 DAILY. Medical STOP Branch ESOMEPRAZO LE. DEXILANT 60 2019-09 Yes [id number] 60mg TAKE 1 [facility] mg capsule 2-22 CAPSULE BY ity of 00:00: MOUTH [place] 00 DAILY. Medical STOP Branch ESOMEPRAZO LE. DEXILANT 60 2020-1 Yes [id number] 60mg TAKE 1 [facility] mg capsule 2-22 CAPSULE BY ity of 00:00: MOUTH [place] 00 DAILY. Medical STOP Branch ESOMEPRAZO LE. DEXILANT 60 2020- Yes [id number] 60mg TAKE 1 [facility] mg capsule 2-22 CAPSULE BY ity of 00:00: MOUTH [place] 00 DAILY. Medical STOP Branch ESOMEPRAZO LE. DEXILANT 60 2019- Yes [id number] 60mg TAKE 1 [facility] mg capsule 2-22 CAPSULE BY ity of 00:00: MOUTH [place] 00 DAILY. Medical STOP Branch ESOMEPRAZO LE. DEXILANT 60 2019- Yes [id number] 60mg TAKE 1 [facility] mg capsule 2-22 CAPSULE BY ity of 00:00: MOUTH [place] 00 DAILY. Medical STOP Branch ESOMEPRAZO LE. DEXILANT 60 2019- Yes [id number] 60mg TAKE 1 [facility] mg capsule 2-22 CAPSULE BY ity of 00:00: MOUTH [place] 00 DAILY. Medical STOP Branch ESOMEPRAZO LE. DEXILANT 60 2019-09 Yes [id number] 60mg TAKE 1 [facility] mg capsule 2-22 CAPSULE BY ity of 00:00: MOUTH [place] 00 DAILY. Medical STOP Branch ESOMEPRAZO LE. DEXILANT 60 2019-09 Yes [id number] 60mg TAKE 1 [facility] mg capsule 2-22 CAPSULE BY ity of 00:00: MOUTH [place] 00 DAILY. Medical STOP Branch ESOMEPRAZO LE. DEXILANT 60 2019- Yes [id number] 60mg TAKE 1 [facility] mg capsule 2-22 CAPSULE BY ity of 00:00: MOUTH [place] 00 DAILY. Medical STOP Branch ESOMEPRAZO LE. DEXILANT 60 2019- Yes [id number] 60mg TAKE 1 [facility] mg capsule 2-22 CAPSULE BY ity of 00:00: MOUTH [place] 00 DAILY. Medical STOP Branch ESOMEPRAZO LE. DEXILANT 60 2019- Yes [id number] 60mg TAKE 1 [facility] mg capsule 2-22 CAPSULE BY ity of 00:00: MOUTH [place] 00 DAILY. Medical STOP Branch ESOMEPRAZO LE. DEXILANT 60 2020- Yes [id number] 60mg TAKE 1 [facility] mg capsule 2-22 CAPSULE BY ity of 00:00: MOUTH [place] 00 DAILY. Medical STOP Branch ESOMEPRAZO LE. DEXILANT 60 2020- Yes [id number] 60mg TAKE 1 [facility] mg capsule 2-22 CAPSULE BY ity of 00:00: MOUTH [place] 00 DAILY. Medical STOP Branch ESOMEPRAZO LE. DEXILANT 60 2020- Yes [id number] 60mg TAKE 1 [facility] mg capsule 2-22 CAPSULE BY ity of 00:00: MOUTH [place] 00 DAILY. Medical STOP Branch ESOMEPRAZO LE. DEXILANT 60 2019- Yes [id number] 60mg TAKE 1 [facility] mg capsule 2-22 CAPSULE BY ity of 00:00: MOUTH [place] 00 DAILY. Medical STOP Branch ESOMEPRAZO LE. DEXILANT 60 2019- Yes [id number] 60mg TAKE 1 [facility] mg capsule 2-22 CAPSULE BY ity of 00:00: MOUTH [place] 00 DAILY. Medical STOP Branch ESOMEPRAZO LE. DEXILANT 60 2019- Yes [id number] 60mg TAKE 1 [facility] mg capsule 2-22 CAPSULE BY [facility] 00:00: MOUTH [place] 00 DAILY. Medical STOP Branch ESOMEPRAZO LE. DEXILANT 60 2019- Yes [id number] 60mg TAKE 1 [facility] mg capsule 2-22 CAPSULE BY [facility] 00:00: MOUTH [place] 00 DAILY. Medical STOP Branch ESOMEPRAZO LE. DEXILANT 60 2019- Yes [id number] 60mg TAKE 1 [facility] mg capsule 2-22 CAPSULE BY [facility] of 00:00: MOUTH [place] 00 DAILY. Medical STOP Branch ESOMEPRAZO LE. DEXILANT 60 2019- Yes [id number] 60mg TAKE 1 [facility] mg capsule 2-22 CAPSULE BY [facility] of 00:00: MOUTH [place] 00 DAILY. Medical STOP Branch ESOMEPRAZO LE. DEXILANT 60 2019- Yes [id number] 60mg TAKE 1 [facility] mg capsule 2-22 CAPSULE BY [facility] of 00:00: MOUTH [place] 00 DAILY. Medical STOP Branch ESOMEPRAZO LE. DEXILANT 60 2019- Yes [id number] 60mg TAKE 1 [facility] mg capsule 2-22 CAPSULE BY [facility] of 00:00: MOUTH [place] 00 DAILY. Medical STOP Branch ESOMEPRAZO LE. DEXILANT 60 2019- Yes [id number] 60mg TAKE 1 [facility] mg capsule 2-22 CAPSULE BY [facility] of 00:00: MOUTH [place] 00 DAILY. Medical STOP Branch ESOMEPRAZO LE. DEXILANT 60 2020- Yes [id number] 60mg TAKE 1 [facility] mg capsule 2-22 CAPSULE BY [facility] of 00:00: MOUTH [place] 00 DAILY. Medical STOP Branch ESOMEPRAZO LE. DEXILANT 60 2019-09 Yes [id number] 60mg TAKE 1 [facility] mg capsule 2-22 CAPSULE BY [facility] of 00:00: MOUTH [place] 00 DAILY. Medical STOP Branch ESOMEPRAZO LE. DEXILANT 60 2019-09- No [id number] 60mg TAKE 1 [facility] mg capsule 2-22 08-18 CAPSULE BY it y of 00:00: 00:00 MOUTH [place] 00 :00 DAILY. Medical STOP Branch ESOMEPRAZO LE. thiamine 2019-09 Yes [id number] 100mg Take 1 [facility] 100 mg 2-16 tablet by [facility] tablet 00:00: mouth [place] 00 daily. Medical Branch Ferrous 2019-09 Yes [id number] 142mg Take 1 [facility] vers Sulfate 2-16 tablet by [facility] of (SLOW FE) 00:00: mouth [place] 142 mg (45 00 daily. Medical mg iron) Branch tablet thiamine 2019-09 Yes [id number] 100mg Take 1 [facility] 100 mg 2-16 tablet by [facility] of tablet 00:00: mouth [place] 00 daily. Medical Branch Ferrous 2019-09 Yes [id number] 142mg Take 1 [facility] vers Sulfate 2-16 tablet by [facility] of (SLOW FE) 00:00: mouth [place] 142 mg (45 00 daily. Medical mg iron) Branch tablet thiamine 2019-09 Yes [id number] 100mg Take 1 [facility] 100 mg 2-16 tablet by [facility] of tablet 00:00: mouth [place] 00 daily. Medical Branch Ferrous 2019-09 Yes [id number] 142mg Take 1 [facility] vers Sulfate 2-16 tablet by [facility] of (SLOW FE) 00:00: mouth [place] 142 mg (45 00 daily. Medical mg iron) Branch tablet thiamine 2019-09 Yes [id number] 100mg Take 1 [facility] 100 mg 2-16 tablet by [facility] of tablet 00:00: mouth [place] 00 daily. Medical Branch Ferrous 2019- Yes [id number] 142mg Take 1 [facility] vers Sulfate 2-16 tablet by [facility] of (SLOW FE) 00:00: mouth [place] 142 mg (45 00 daily. Medical mg iron) Branch tablet thiamine 2019-09 Yes [id number] 100mg Take 1 [facility] 100 mg 2-16 tablet by [facility] of tablet 00:00: mouth [place] 00 daily. Medical Branch Ferrous 2019- Yes [id number] 142mg Take 1 [facility] vers Sulfate 2-16 tablet by [facility] of (SLOW FE) 00:00: mouth [place] 142 mg (45 00 daily. Medical mg iron) Branch tablet thiamine 2019-09 Yes [id number] 100mg Take 1 [facility] 100 mg 2-16 tablet by [facility] of tablet 00:00: mouth [place] 00 daily. Medical Branch Ferrous 2020- Yes [id number] 142mg Take 1 [facility] vers Sulfate 2-16 tablet by [facility] of (SLOW FE) 00:00: mouth [place] 142 mg (45 00 daily. Medical mg iron) Branch tablet thiamine 2019-09 Yes [id number] 100mg Take 1 [facility] 100 mg 2-16 tablet by [facility] of tablet 00:00: mouth [place] 00 daily. Medical Branch Ferrous 2019- Yes [id number] 142mg Take 1 [facility] Sulfate 2-16 tablet by [facility] of (SLOW FE) 00:00: mouth [place] 142 mg (45 00 daily. Medical mg iron) Branch tablet thiamine 2019-09 Yes [id number] 100mg Take 1 [facility] 100 mg 2-16 tablet by [facility] of tablet 00:00: mouth [place] 00 daily. Medical Branch Ferrous 2019- Yes [id number] 142mg Take 1 [facility] vers Sulfate 2-16 tablet by [facility] of (SLOW FE) 00:00: mouth [place] 142 mg (45 00 daily. Medical mg iron) Branch tablet thiamine 2019-09 Yes [id number] 100mg Take 1 [facility] 100 mg 2-16 tablet by [facility] of tablet 00:00: mouth [place] 00 daily. Medical Branch Ferrous 2019- Yes [id number] 142mg Take 1 [facility] vers Sulfate 2-16 tablet by [facility] of (SLOW FE) 00:00: mouth [place] 142 mg (45 00 daily. Medical mg iron) Branch tablet thiamine 2019-09 Yes [id number] 100mg Take 1 [facility] 100 mg 2-16 tablet by [facility] of tablet 00:00: mouth [place] 00 daily. Medical Branch Ferrous 2020- Yes [id number] 142mg Take 1 [facility] vers Sulfate 2-16 tablet by [facility] of (SLOW FE) 00:00: mouth [place] 142 mg (45 00 daily. Medical mg iron) Branch tablet thiamine 2019- Yes [id number] 100mg Take 1 [facility] 100 mg 2-16 tablet by [facility] of tablet 00:00: mouth [place] 00 daily. Medical Branch Ferrous 2020- Yes [id number] 142mg Take 1 [facility] Sulfate 2-16 tablet by [facility] of (SLOW FE) 00:00: mouth [place] 142 mg (45 00 daily. Medical mg iron) Branch tablet thiamine 2019-09 Yes [id number] 100mg Take 1 [facility] 100 mg 2-16 tablet by [facility] of tablet 00:00: mouth [place] 00 daily. Medical Branch Ferrous 2020- Yes [id number] 142mg Take 1 [facility] vers Sulfate 2-16 tablet by [facility] of (SLOW FE) 00:00: mouth [place] 142 mg (45 00 daily. Medical mg iron) Branch tablet thiamine 2019-09 Yes [id number] 100mg Take 1 [facility] 100 mg 2-16 tablet by [facility] of tablet 00:00: mouth [place] 00 daily. Medical Branch Ferrous 2019- Yes [id number] 142mg Take 1 [facility] vers Sulfate 2-16 tablet by [facility] of (SLOW FE) 00:00: mouth [place] 142 mg (45 00 daily. Medical mg iron) Branch tablet thiamine 2019-09 Yes [id number] 100mg Take 1 [facility] 100 mg 2-16 tablet by [facility] of tablet 00:00: mouth [place] 00 daily. Medical Branch Ferrous 2019- Yes [id number] 142mg Take 1 [facility] vers Sulfate 2-16 tablet by [facility] of (SLOW FE) 00:00: mouth [place] 142 mg (45 00 daily. Medical mg iron) Branch tablet thiamine 2019-09 Yes [id number] 100mg Take 1 [facility] 100 mg 2-16 tablet by [facility] of tablet 00:00: mouth [place] 00 daily. Medical Branch Ferrous 2019- Yes [id number] 142mg Take 1 [facility] vers Sulfate 2-16 tablet by [facility] of (SLOW FE) 00:00: mouth [place] 142 mg (45 00 daily. Medical mg iron) Branch tablet thiamine 2019-09 Yes [id number] 100mg Take 1 [facility] 100 mg 2-16 tablet by [facility] of tablet 00:00: mouth [place] 00 daily. Medical Branch Ferrous 2020- Yes [id number] 142mg Take 1 [facility] vers Sulfate 2-16 tablet by [facility] of (SLOW FE) 00:00: mouth [place] 142 mg (45 00 daily. Medical mg iron) Branch tablet thiamine 2019-09 Yes [id number] 100mg Take 1 [facility] 100 mg 2-16 tablet by [facility] of tablet 00:00: mouth [place] 00 daily. Medical Branch Ferrous 2020- Yes [id number] 142mg Take 1 [facility] vers Sulfate 2-16 tablet by [facility] of (SLOW FE) 00:00: mouth [place] 142 mg (45 00 daily. Medical mg iron) Branch tablet thiamine 2019-09 Yes [id number] 100mg Take 1 [facility] 100 mg 2-16 tablet by [facility] of tablet 00:00: mouth [place] 00 daily. Medical Branch Ferrous 2020- Yes [id number] 142mg Take 1 [facility] vers Sulfate 2-16 tablet by [facility] of (SLOW FE) 00:00: mouth [place] 142 mg (45 00 daily. Medical mg iron) Branch tablet thiamine 2019-09 Yes [id number] 100mg Take 1 [facility] 100 mg 2-16 tablet by [facility] of tablet 00:00: mouth [place] 00 daily. Medical Branch Ferrous 2019- Yes [id number] 142mg Take 1 [facility] vers Sulfate 2-16 tablet by [facility] of (SLOW FE) 00:00: mouth [place] 142 mg (45 00 daily. Medical mg iron) Branch tablet thiamine 2019-09 Yes [id number] 100mg Take 1 [facility] 100 mg 2-16 tablet by [facility] of tablet 00:00: mouth [place] 00 daily. Medical Branch Ferrous 2019- Yes [id number] 142mg Take 1 [facility] vers Sulfate 2-16 tablet by [facility] of (SLOW FE) 00:00: mouth [place] 142 mg (45 00 daily. Medical mg iron) Branch tablet thiamine 2019-09 Yes [id number] 100mg Take 1 [facility] 100 mg 2-16 tablet by [facility] of tablet 00:00: mouth [place] 00 daily. Medical Branch Ferrous 2020- Yes [id number] 142mg Take 1 [facility] vers Sulfate 2-16 tablet by [facility] of (SLOW FE) 00:00: mouth [place] 142 mg (45 00 daily. Medical mg iron) Branch tablet thiamine 2019-09 Yes [id number] 100mg Take 1 [facility] 100 mg 2-16 tablet by [facility] of tablet 00:00: mouth [place] 00 daily. Medical Branch Ferrous 2020- Yes [id number] 142mg Take 1 [facility] vers Sulfate 2-16 tablet by [facility] of (SLOW FE) 00:00: mouth [place] 142 mg (45 00 daily. Medical mg iron) Branch tablet thiamine 2019-09 Yes [id number] 100mg Take 1 [facility] 100 mg 2-16 tablet by [facility] of tablet 00:00: mouth [place] 00 daily. Medical Branch Ferrous 2020- Yes [id number] 142mg Take 1 [facility] vers Sulfate 2-16 tablet by [facility] of (SLOW FE) 00:00: mouth [place] 142 mg (45 00 daily. Medical mg iron) Branch tablet thiamine 2019-09 Yes [id number] 100mg Take 1 [facility] 100 mg 2-16 tablet by [facility] of tablet 00:00: mouth [place] 00 daily. Medical Branch Ferrous 2020- Yes [id number] 142mg Take 1 [facility] vers Sulfate 2-16 tablet by [facility] of (SLOW FE) 00:00: mouth [place] 142 mg (45 00 daily. Medical mg iron) Branch tablet thiamine 2019-09 Yes [id number] 100mg Take 1 [facility] 100 mg 2-16 tablet by [facility] of tablet 00:00: mouth [place] 00 daily. Medical Branch Ferrous 2019- Yes [id number] 142mg Take 1 [facility] vers Sulfate 2-16 tablet by [facility] of (SLOW FE) 00:00: mouth [place] 142 mg (45 00 daily. Medical mg iron) Branch tablet thiamine 2019-09 Yes [id number] 100mg Take 1 [facility] 100 mg 2-16 tablet by [facility] of tablet 00:00: mouth [place] 00 daily. Medical Branch Ferrous 2019- Yes [id number] 142mg Take 1 [facility] vers Sulfate 2-16 tablet by [facility] of (SLOW FE) 00:00: mouth [place] 142 mg (45 00 daily. Medical mg iron) Branch tablet thiamine 2019-09 Yes [id number] 100mg Take 1 [facility] 100 mg 2-16 tablet by [facility] of tablet 00:00: mouth [place] 00 daily. Medical Branch Ferrous 2020- Yes [id number] 142mg Take 1 [facility] vers Sulfate 2-16 tablet by [facility] of (SLOW FE) 00:00: mouth [place] 142 mg (45 00 daily. Medical mg iron) Branch tablet thiamine 2019-09 Yes [id number] 100mg Take 1 [facility] 100 mg 2-16 tablet by [facility] of tablet 00:00: mouth [place] 00 daily. Medical Branch Ferrous 2020- Yes [id number] 142mg Take 1 [facility] vers Sulfate 2-16 tablet by [facility] of (SLOW FE) 00:00: mouth [place] 142 mg (45 00 daily. Medical mg iron) Branch tablet thiamine 2019-09 Yes [id number] 100mg Take 1 [facility] 100 mg 2-16 tablet by [facility] of tablet 00:00: mouth [place] 00 daily. Medical Branch Ferrous 2020- Yes [id number] 142mg Take 1 [facility] vers Sulfate 2-16 tablet by it[facility] of (SLOW FE) 00:00: mouth [place] 142 mg (45 00 daily. Medical mg iron) Branch tablet thiamine 2019-09 Yes [id number] 100mg Take 1 [facility] 100 mg 2-16 tablet by [facility] of tablet 00:00: mouth [place] 00 daily. Medical Branch Ferrous 2020- Yes [id number] 142mg Take 1 [facility] vers Sulfate 2-16 tablet by ity of (SLOW FE) 00:00: mouth [place] 142 mg (45 00 daily. Medical mg iron) Branch tablet thiamine 2019-09 Yes [id number] 100mg Take 1 [facility] 100 mg 2-16 tablet by [facility] of tablet 00:00: mouth [place] 00 daily. Medical Branch Ferrous 2019-09 Yes [id number] 142mg Take 1 [facility] vers Sulfate 2-16 tablet by [facility] of (SLOW FE) 00:00: mouth [place] 142 mg (45 00 daily. Medical mg iron) Branch tablet thiamine 2019-09 Yes [id number] 100mg Take 1 [facility] 100 mg 2-16 tablet by [facility] of tablet 00:00: mouth [place] 00 daily. Medical Branch Ferrous 2019-09 Yes [id number] 142mg Take 1 [facility] vers Sulfate 2-16 tablet by [facility] of (SLOW FE) 00:00: mouth [place] 142 mg (45 00 daily. Medical mg iron) Branch tablet thiamine 2019-09 Yes [id number] 100mg Take 1 [facility] 100 mg 2-16 tablet by [facility] of tablet 00:00: mouth [place] 00 daily. Medical Branch Ferrous 2019- Yes [id number] 142mg Take 1 [facility] vers Sulfate 2-16 tablet by [facility] of (SLOW FE) 00:00: mouth [place] 142 mg (45 00 daily. Medical mg iron) Branch tablet thiamine 2019-09 Yes [id number] 100mg Take 1 [facility] 100 mg 2-16 tablet by [facility] of tablet 00:00: mouth [place] 00 daily. Medical Branch Ferrous 2020- Yes [id number] 142mg Take 1 [facility] vers Sulfate 2-16 tablet by ity of (SLOW FE) 00:00: mouth [place] 142 mg (45 00 daily. Medical mg iron) Branch tablet thiamine 2019-09 Yes [id number] 100mg Take 1 [facility] 100 mg 2-16 tablet by [facility] of tablet 00:00: mouth [place] 00 daily. Medical Branch Ferrous 2020- Yes [id number] 142mg Take 1 [facility] vers Sulfate 2-16 tablet by ity of (SLOW FE) 00:00: mouth [place] 142 mg (45 00 daily. Medical mg iron) Branch tablet thiamine 2019-09 Yes [id number] 100mg Take 1 [facility] 100 mg 2-16 tablet by [facility] of tablet 00:00: mouth [place] 00 daily. Medical Branch Ferrous 2020- Yes [id number] 142mg Take 1 [facility] vers Sulfate 2-16 tablet by ity of (SLOW FE) 00:00: mouth [place] 142 mg (45 00 daily. Medical mg iron) Branch tablet thiamine 2019-09 Yes [id number] 100mg Take 1 [facility] 100 mg 2-16 tablet by [facility] of tablet 00:00: mouth [place] 00 daily. Medical Branch Ferrous 2020- Yes [id number] 142mg Take 1 [facility] vers Sulfate 2-16 tablet by ity of (SLOW FE) 00:00: mouth [place] 142 mg (45 00 daily. Medical mg iron) Branch tablet thiamine 2019-09 Yes [id number] 100mg Take 1 [facility] 100 mg 2-16 tablet by [facility] of tablet 00:00: mouth [place] 00 daily. Medical Branch Ferrous 2019- Yes [id number] 142mg Take 1 [facility] vers Sulfate 2-16 tablet by ity of (SLOW FE) 00:00: mouth [place] 142 mg (45 00 daily. Medical mg iron) Branch tablet thiamine 2019-09 Yes [id number] 100mg Take 1 [facility] 100 mg 2-16 tablet by [facility] of tablet 00:00: mouth [place] 00 daily. Medical Branch Ferrous 2020- Yes [id number] 142mg Take 1 [facility] vers Sulfate 2-16 tablet by it[facility] of (SLOW FE) 00:00: mouth [place] 142 mg (45 00 daily. Medical mg iron) Branch tablet thiamine 2019- Yes [id number] 100mg Take 1 [facility] 100 mg 2-16 tablet by [facility] of tablet 00:00: mouth [place] 00 daily. Medical Branch Ferrous 2020- Yes [id number] 142mg Take 1 [facility] vers Sulfate 2-16 tablet by it[facility] of (SLOW FE) 00:00: mouth [place] 142 mg (45 00 daily. Medical mg iron) Branch tablet thiamine 2019- Yes [id number] 100mg Take 1 [facility] 100 mg 2-16 tablet by [facility] of tablet 00:00: mouth [place] 00 daily. Medical Branch Ferrous 2020- Yes [id number] 142mg Take 1 [facility] vers Sulfate 2-16 tablet by it[facility] of (SLOW FE) 00:00: mouth [place] 142 mg (45 00 daily. Medical mg iron) Branch tablet thiamine 2019- Yes [id number] 100mg Take 1 [facility] 100 mg 2-16 tablet by [facility] of tablet 00:00: mouth [place] 00 daily. Medical Branch Ferrous 2019- Yes [id number] 142mg Take 1 [facility] vers Sulfate 2-16 tablet by [facility] of (SLOW FE) 00:00: mouth [place] 142 mg (45 00 daily. Medical mg iron) Branch tablet gabapentin 2019-09 2020- No 100mg 100 mg, [facility] [place] (NEURONTIN) 2-15 12-15 Oral, [facility] capsule 100 05:30: 04:36 ONCE, 1 [place] 00 :[place] dose, [facility] 08/30/20 Branch at 2330, Routine CLOPIDOGREL 2019-09 Yes [id number] TAKE 1 [facility] 75 mg 2-15 [id number] TABLET BY [facility] of tablet 00:00: MOUTH [place] 00 EVERY DAY Medical Branch CLOPIDOGREL 2019- Yes [id number] TAKE 1 [facility] 75 mg 2-15 [id number] TABLET BY it[facility] of tablet 00:00: MOUTH [place] 00 EVERY DAY Medical Branch PRAVASTATIN 2019- Yes [id number] 10mg TAKE 1 [facility] 10 mg 2-15 [id number] TABLET BY [facility] of tablet 00:00: MOUTH [place] 00 EVERY Medical OTHER DAY Branch CLOPIDOGREL 2019-1 Yes [id number] TAKE 1 [facility] 75 mg 2-15 [id number] TABLET BY [facility] of tablet 00:00: MOUTH [place] 00 EVERY DAY Medical Branch PRAVASTATIN 2020- Yes [id number] 10mg TAKE 1 [facility] 10 mg 2-15 [id number] TABLET BY [facility] of tablet 00:00: MOUTH [place] 00 EVERY Medical OTHER DAY Branch CLOPIDOGREL 2020- Yes [id number] TAKE 1 [facility] 75 mg 2-15 [id number] TABLET BY [facility] of tablet 00:00: MOUTH [place] 00 EVERY DAY Medical Branch PRAVASTATIN 2020- Yes [id number] 10mg TAKE 1 [facility] 10 mg 2-15 [id number] TABLET BY [facility] of tablet 00:00: MOUTH [place] 00 EVERY Medical OTHER DAY Branch CLOPIDOGREL 2019- Yes [id number] TAKE 1 [facility] 75 mg 2-15 [id number] TABLET BY [facility] of tablet 00:00: MOUTH [place] 00 EVERY DAY Medical Branch PRAVASTATIN 2020- Yes [id number] 10mg TAKE 1 [facility] 10 mg 2-15 [id number] TABLET BY [facility] of tablet 00:00: MOUTH [place] 00 EVERY Medical OTHER DAY Branch CLOPIDOGREL 2020-1 Yes [id number] TAKE 1 [facility] 75 mg 2-15 [id number] TABLET BY [facility] of tablet 00:00: MOUTH [place] 00 EVERY DAY Medical Branch PRAVASTATIN 2020-1 Yes [id number] 10mg TAKE 1 [facility] 10 mg 2-15 [id number] TABLET BY [facility] of tablet 00:00: MOUTH [place] 00 EVERY Medical OTHER DAY Branch CLOPIDOGREL 2020-1 Yes [id number] TAKE 1 [facility] 75 mg 2-15 [id number] TABLET BY [facility] of tablet 00:00: MOUTH [place] 00 EVERY DAY Medical Branch PRAVASTATIN 2020-1 Yes [id number] 10mg TAKE 1 [facility] 10 mg 2-15 [id number] TABLET BY [facility] of tablet 00:00: MOUTH [place] 00 EVERY Medical OTHER DAY Branch CLOPIDOGREL 2020-1 Yes [id number] TAKE 1 [facility] 75 mg 2-15 [id number] TABLET BY [facility] of tablet 00:00: MOUTH [place] 00 EVERY DAY Medical Branch PRAVASTATIN 2020-1 Yes [id number] 10mg TAKE 1 [facility] 10 mg 2-15 [id number] TABLET BY [facility] of tablet 00:00: MOUTH [place] 00 EVERY Medical OTHER DAY Branch CLOPIDOGREL 2020-1 Yes [id number] TAKE 1 [facility] 75 mg 2-15 [id number] TABLET BY [facility] of tablet 00:00: MOUTH [place] 00 EVERY DAY Medical Branch PRAVASTATIN 2020-1 Yes [id number] 10mg TAKE 1 [facility] 10 mg 2-15 [id number] TABLET BY [facility] of tablet 00:00: MOUTH [place] 00 EVERY Medical OTHER DAY Branch CLOPIDOGREL 2020-1 Yes [id number] TAKE 1 [facility] 75 mg 2-15 [id number] TABLET BY [facility] of tablet 00:00: MOUTH [place] 00 EVERY DAY Medical Branch PRAVASTATIN 2020-1 Yes [id number] 10mg TAKE 1 [facility] 10 mg 2-15 [id number] TABLET BY [facility] of tablet 00:00: MOUTH [place] 00 EVERY Medical OTHER DAY Branch CLOPIDOGREL 2020-1 Yes [id number] TAKE 1 [facility] 75 mg 2-15 [id number] TABLET BY [facility] of tablet 00:00: MOUTH [place] 00 EVERY DAY Medical Branch PRAVASTATIN 2020-1 Yes [id number] 10mg TAKE 1 [facility] 10 mg 2-15 [id number] TABLET BY [facility] of tablet 00:00: MOUTH [place] 00 EVERY Medical OTHER DAY Branch CLOPIDOGREL 2020-1 Yes [id number] TAKE 1 [facility] 75 mg 2-15 [id number] TABLET BY [facility] of tablet 00:00: MOUTH [place] 00 EVERY DAY Medical Branch PRAVASTATIN 2020-1 Yes [id number] 10mg TAKE 1 [facility] 10 mg 2-15 [id number] TABLET BY [facility] of tablet 00:00: MOUTH [place] 00 EVERY Medical OTHER DAY Branch CLOPIDOGREL 2020-1 Yes [id number] TAKE 1 [facility] 75 mg 2-15 [id number] TABLET BY [facility] of tablet 00:00: MOUTH [place] 00 EVERY DAY Medical Branch PRAVASTATIN 2020-1 Yes [id number] 10mg TAKE 1 [facility] 10 mg 2-15 [id number] TABLET BY [facility] of tablet 00:00: MOUTH [place] 00 EVERY Medical OTHER DAY Branch CLOPIDOGREL 2020-1 Yes [id number] TAKE 1 [facility] 75 mg 2-15 [id number] TABLET BY [facility] of tablet 00:00: MOUTH [place] 00 EVERY DAY Medical Branch PRAVASTATIN 2020-1 Yes [id number] 10mg TAKE 1 [facility] 10 mg 2-15 [id number] TABLET BY [facility] of tablet 00:00: MOUTH [place] 00 EVERY Medical OTHER DAY Branch CLOPIDOGREL 2020-1 Yes [id number] TAKE 1 [facility] 75 mg 2-15 [id number] TABLET BY [facility] of tablet 00:00: MOUTH [place] 00 EVERY DAY Medical Branch PRAVASTATIN 2020-1 Yes [id number] 10mg TAKE 1 [facility] 10 mg 2-15 [id number] TABLET BY [facility] of tablet 00:00: MOUTH [place] 00 EVERY Medical OTHER DAY Branch CLOPIDOGREL 2020-1 Yes [id number] TAKE 1 [facility] 75 mg 2-15 [id number] TABLET BY [facility] of tablet 00:00: MOUTH [place] 00 EVERY DAY Medical Branch PRAVASTATIN 2020-1 Yes [id number] 10mg TAKE 1 [facility] 10 mg 2-15 [id number] TABLET BY [facility] of tablet 00:00: MOUTH [place] 00 EVERY Medical OTHER DAY Branch CLOPIDOGREL 2020-1 Yes [id number] TAKE 1 [facility] 75 mg 2-15 [id number] TABLET BY [facility] of tablet 00:00: MOUTH [place] 00 EVERY DAY Medical Branch PRAVASTATIN 2020-1 Yes [id number] 10mg TAKE 1 [facility] 10 mg 2-15 [id number] TABLET BY [facility] of tablet 00:00: MOUTH [place] 00 EVERY Medical OTHER DAY Branch CLOPIDOGREL 2020-1 Yes [id number] TAKE 1 [facility] 75 mg 2-15 [id number] TABLET BY [facility] of tablet 00:00: MOUTH [place] 00 EVERY DAY Medical Branch PRAVASTATIN 2020-1 Yes [id number] 10mg TAKE 1 [facility] 10 mg 2-15 [id number] TABLET BY [facility] of tablet 00:00: MOUTH [place] 00 EVERY Medical OTHER DAY Branch CLOPIDOGREL 2020-1 Yes [id number] TAKE 1 [facility] 75 mg 2-15 [id number] TABLET BY [facility] of tablet 00:00: MOUTH [place] 00 EVERY DAY Medical Branch PRAVASTATIN 2020-1 Yes [id number] 10mg TAKE 1 [facility] 10 mg 2-15 [id number] TABLET BY it[facility] of tablet 00:00: MOUTH [place] 00 EVERY Medical OTHER DAY Branch CLOPIDOGREL 2020-1 Yes [id number] TAKE 1 [facility] 75 mg 2-15 [id number] TABLET BY it[facility] of tablet 00:00: MOUTH [place] 00 EVERY DAY Medical Branch PRAVASTATIN 2020-1 Yes [id number] 10mg TAKE 1 [facility] 10 mg 2-15 [id number] TABLET BY it[facility] of tablet 00:00: MOUTH [place] 00 EVERY Medical OTHER DAY Branch CLOPIDOGREL 2020-1 Yes [id number] TAKE 1 [facility] 75 mg 2-15 [id number] TABLET BY it[facility] of tablet 00:00: MOUTH [place] 00 EVERY DAY Medical Branch PRAVASTATIN 2020-1 Yes [id number] 10mg TAKE 1 [facility] 10 mg 2-15 [id number] TABLET BY [facility] of tablet 00:00: MOUTH [place] 00 EVERY Medical OTHER DAY Branch CLOPIDOGREL 2020-1 Yes [id number] TAKE 1 [facility] 75 mg 2-15 [id number] TABLET BY ity of tablet 00:00: MOUTH [place] 00 EVERY DAY Medical Branch PRAVASTATIN 2020-1 Yes [id number] 10mg TAKE 1 [facility] 10 mg 2-15 [id number] TABLET BY ity of tablet 00:00: MOUTH [place] 00 EVERY Medical OTHER DAY Branch CLOPIDOGREL 2020-1 Yes [id number] TAKE 1 [facility] 75 mg 2-15 [id number] TABLET BY ity of tablet 00:00: MOUTH [place] 00 EVERY DAY Medical Branch PRAVASTATIN 2020-1 Yes [id number] 10mg TAKE 1 [facility] 10 mg 2-15 [id number] TABLET BY ity of tablet 00:00: MOUTH [place] 00 EVERY Medical OTHER DAY Branch CLOPIDOGREL 2020-1 Yes [id number] TAKE 1 [facility] 75 mg 2-15 [id number] TABLET BY ity of tablet 00:00: MOUTH [place] 00 EVERY DAY Medical Branch PRAVASTATIN 2020-1 Yes [id number] 10mg TAKE 1 [facility] 10 mg 2-15 [id number] TABLET BY ity of tablet 00:00: MOUTH [place] 00 EVERY Medical OTHER DAY Branch CLOPIDOGREL 2020-1 Yes [id number] TAKE 1 [facility] 75 mg 2-15 [id number] TABLET BY ity of tablet 00:00: MOUTH [place] 00 EVERY DAY Medical Branch CLOPIDOGREL 2020-1 Yes [id number] TAKE 1 [facility] 75 mg 2-15 [id number] TABLET BY ity of tablet 00:00: [facility] 00 EVERY DAY Medical Branch CLOPIDOGREL 2020-1 Yes [id number] TAKE 1 [facility] 75 mg 2-15 [id number] TABLET BY ity of tablet 00:00: [facility] 00 EVERY DAY Medical Branch CLOPIDOGREL 2020-1 Yes [id number] TAKE 1 [facility] 75 mg 2-15 [id number] TABLET BY ity of tablet 00:00: [facility] 00 EVERY DAY Medical Branch CLOPIDOGREL 2020-1 Yes [id number] TAKE 1 [facility] 75 mg 2-15 [id number] TABLET BY ity of tablet 00:00: [facility] 00 EVERY DAY Medical Branch CLOPIDOGREL 2020-1 Yes [id number] TAKE 1 [facility] 75 mg 2-15 [id number] TABLET BY ity of tablet 00:00: [facility] 00 EVERY DAY Medical Branch CLOPIDOGREL 2020-1 Yes [id number] TAKE 1 [facility] 75 mg 2-15 [id number] TABLET BY [facility]y of tablet 00:00: [facility] 00 EVERY DAY Medical Branch CLOPIDOGREL 2020-1 Yes [id number] TAKE 1 [facility] 75 mg 2-15 [id number] TABLET BY ity of tablet 00:00: [facility] 00 EVERY DAY Medical Branch CLOPIDOGREL 2020-1 Yes [id number] TAKE 1 [facility] 75 mg 2-15 [id number] TABLET BY ity of tablet 00:00: [facility] 00 EVERY DAY Medical Branch CLOPIDOGREL 2020-1 Yes [id number] TAKE 1 [facility] 75 mg 2-15 [id number] TABLET BY ity of tablet 00:00: [facility] 00 EVERY DAY Medical Branch CLOPIDOGREL 2020-1 Yes [id number] TAKE 1 [facility] 75 mg 2-15 [id number] TABLET BY ity of tablet 00:00: [facility] 00 EVERY DAY Medical Branch CLOPIDOGREL 2020-1 Yes [id number] TAKE 1 [facility] 75 mg 2-15 [id number] TABLET BY ity of tablet 00:00: [facility] 00 EVERY DAY Medical Branch CLOPIDOGREL 2020-1 Yes [id number] TAKE 1 [facility] 75 mg 2-15 [id number] TABLET BY ity of tablet 00:00: [facility] 00 EVERY DAY Medical Branch CLOPIDOGREL 2020-1 Yes [id number] TAKE 1 [facility] 75 mg 2-15 [id number] TABLET BY ity of tablet 00:00: [facility] 00 EVERY DAY Medical Branch CLOPIDOGREL 2020-1 Yes [id number] TAKE 1 [facility] 75 mg 2-15 [id number] TABLET BY ity of tablet 00:00: MOUTH [place] 00 EVERY DAY Medical Branch CLOPIDOGREL 2019-09 Yes [id number] TAKE 1 [facility] 75 mg 2-15 [id number] TABLET BY [facility]y of tablet 00:00: MOUTH [place] 00 EVERY DAY Medical Branch CLOPIDOGREL 2019-09 Yes [id number] TAKE 1 [facility] 75 mg 2-15 [id number] TABLET BY [facility]y of tablet 00:00: MOUTH [place] 00 EVERY DAY Medical Branch CLOPIDOGREL 2019-09 Yes [id number] TAKE 1 [facility] 75 mg 2-15 [id number] TABLET BY ity of tablet 00:00: MOUTH [place] 00 EVERY DAY Medical Branch CLOPIDOGREL 2019-09- No [id number] TAKE 1 [facility] 75 mg 2-15 - [id number] TABLET BY [facility] of tablet 00:00: 00:00 MOUTH [place] 00 :00 EVERY DAY Medical Branch PRAVASTATIN 2019-09- No [id number] 10mg TAKE 1 [facility] 10 mg 2-15 -11 [id number] TABLET BY [facility] of tablet 00:00: 00:00 MOUTH [place] 00 :00 EVERY Medical OTHER DAY Branch PRAVASTATIN 2019-09- No [id number] 10mg TAKE 1 [facility] 10 mg 2-15 - [id number] TABLET BY ity of tablet 00:00: 00:00 MOUTH [place] 00 :00 EVERY Medical OTHER DAY Branch gabapentin 2019-09 Yes [id number] 100mg Take 1 [facility] 100 mg 2-14 [id number] capsule by [facility] o f capsule 00:00: mouth 3 00 (three) Medical times Branch daily. gabapentin 2019-09 Yes [id number] 100mg Take 1 [facility] 100 mg 2-14 [id number] capsule by [facility] o f capsule 00:00: mouth 3 [place] 00 (three) Medical times Branch daily. gabapentin 2019-09 Yes [id number] 100mg Take 1 [facility] 100 mg 2-14 [id number] capsule by [facility] o f capsule 00:00: mouth 3 [place] 00 (three) Medical times Branch daily. gabapentin 2019-09 Yes [id number] 100mg Take 1 [facility] 100 mg 2-14 [id number] capsule by [facility] o f capsule 00:00: mouth 3 [place] 00 (three) Medical times Branch daily. gabapentin 2019-09- No [id number] 100mg Take 1 [facility] 100 mg 2-14 - [id number] capsule by [facility] of capsule 00:00: 00:00 mouth 3 [place] 00 :00 (three) Medical times Branch daily. gabapentin 2019-09 No [id number] 100mg Take 1 [facility] 100 mg 2-14 09-21 [id number] capsule by [facility] of capsule 00:00: 00:00 mouth 3 [place] 00 :00 (three) Medical times Branch daily. gabapentin 2019-09- No [id number] 100mg Take 1 [facility] 100 mg 2-14 -14 [id number] capsule by [facility] of capsule 00:00: 00:00 mouth 3 [place] 00 :00 (three) Medical times Branch daily. cefUROXime 2019-09- No [id number] 500mg Take 1 [facility] 500 mg 2-10 12-18 tablet by [facility] of tablet 00:00: 05:59 mouth 2 [place] 00 :00 (two) Medical times Branch daily for 7 days. cefUROXime 2019-09- No [id number] 500mg Take 1 [facility] 500 mg 2-10 12-18 tablet by [facility] of tablet 00:00: 05:59 mouth 2 [place] 00 :00 (two) Medical times Branch daily for 7 days. cefUROXime 2019-09- No [id number] 500mg Take 1 [facility] 500 mg 2-10 12-18 tablet by [facility] of tablet 00:00: 05:59 mouth 2 [place] 00 :00 (two) Medical times Branch daily for 7 days. cefUROXime 2019-09- No [id number] 500mg Take 1 [facility] 500 mg 2-10 12-18 tablet by [facility] of tablet 00:00: 05:59 mouth 2 [place] 00 :00 (two) Medical times Branch daily for 7 days. cefUROXime 2019-09- No [id number] 500mg Take 1 [facility] 500 mg 2-10 12-18 tablet by [facility] of tablet 00:00: 05:59 mouth 2 [place] 00 :00 (two) Medical times Branch daily for 7 days. metoprolol 2019- Yes [id number] 25mg Take 1 [facility] n[facility] succinate 2-09 tablet by [facility] o f XL 25 mg 24 00:00: mouth 2 [place] tablet 00 (two) Medical times Branch daily. metoprolol 2019- Yes [id number] 25mg Take 1 [facility] n[facility] succinate 2-09 tablet by [facility] o f XL 25 mg 24 00:00: mouth 2 [place] tablet 00 (two) Medical times Branch daily. clopidogreL 2019-09 Yes [id number] 75mg Take 1 [facility] (PLAVIX) 75 2-09 [id number] tablet by i ty of mg tablet 00:00: mouth [place] 00 daily. Medical Branch pravastatin 2020- Yes [id number] 10mg Take 1 [facility] 10 mg 2-09 [id number] tablet by [facility] of tablet 00:00: mouth [place] 00 every Medical other day. Branch metoprolol 2020- Yes [id number] 25mg Take 1 [facility] nivers succinate 2-09 tablet by [facility] o f XL 25 mg 24 00:00: mouth 2 [place] tablet 00 (two) Medical times Branch daily. clopidogreL 2020- Yes [id number] 75mg Take 1 [facility] (PLAVIX) 75 2-09 [id number] tablet by i ty of mg tablet 00:00: mouth [place] 00 daily. Medical Branch pravastatin 2020- Yes [id number] 10mg Take 1 [facility] 10 mg 2-09 [id number] tablet by [facility] of tablet 00:00: mouth [place] 00 every Medical other day. Branch metoprolol 2019- Yes [id number] 25mg Take 1 [facility] nivers succinate 2-09 tablet by [facility]y o f XL 25 mg 24 00:00: mouth 2 [place] tablet 00 (two) Medical times Branch daily. clopidogreL 2020- Yes [id number] 75mg Take 1 [facility] (PLAVIX) 75 2-09 [id number] tablet by i ty of mg tablet 00:00: mouth [place] 00 daily. Medical Branch pravastatin 2020- Yes [id number] 10mg Take 1 [facility] 10 mg 2-09 [id number] tablet by [facility] of tablet 00:00: mouth [place] 00 every Medical other day. Branch metoprolol 2020- Yes [id number] 25mg Take 1 [facility] nivers succinate 2-09 tablet by [facility]y o f XL 25 mg 24 00:00: mouth 2 [place] tablet 00 (two) Medical times Branch daily. clopidogreL 2020- Yes [id number] 75mg Take 1 [facility] (PLAVIX) 75 2-09 [id number] tablet by i ty of mg tablet 00:00: mouth [place] 00 daily. Medical Branch pravastatin 2020- Yes [id number] 10mg Take 1 [facility] 10 mg 2-09 [id number] tablet by [facility] of tablet 00:00: mouth [place] 00 every Medical other day. Branch metoprolol 2020- Yes [id number] 25mg Take 1 [facility] nivers succinate 2-09 tablet by [facility]y o f XL 25 mg 24 00:00: mouth 2 [place] tablet 00 (two) Medical times Branch daily. metoprolol 2019- Yes [id number] 25mg Take 1 [facility] nivers succinate 2-09 tablet by [facility]y o f XL 25 mg 24 00:00: mouth 2 [place] tablet 00 (two) Medical times Branch daily. clopidogreL 2019- Yes [id number] 75mg Take 1 [facility] (PLAVIX) 75 2-09 [id number] tablet by i ty of mg tablet 00:00: mouth [place] 00 daily. Medical Branch pravastatin 2019- Yes [id number] 10mg Take 1 [facility] 10 mg 2-09 [id number] tablet by [facility] of tablet 00:00: mouth [place] 00 every Medical other day. Branch metoprolol 2019- Yes [id number] 25mg Take 1 [facility] nivers succinate 2-09 tablet by [facility] o f XL 25 mg 24 00:00: mouth 2 [place] tablet 00 (two) Medical times Branch daily. metoprolol 2019- Yes [id number] 25mg Take 1 [facility] nivers succinate 2-09 tablet by [facility] o f XL 25 mg 24 00:00: mouth 2 [place] tablet 00 (two) Medical times Branch daily. metoprolol 2019- Yes [id number] 25mg Take 1 [facility] nivers succinate 2-09 tablet by [facility] o f XL 25 mg 24 00:00: mouth 2 [place] tablet 00 (two) Medical times Branch daily. metoprolol 2019- Yes [id number] 25mg Take 1 [facility] nivers succinate 2-09 tablet by [facility] o f XL 25 mg 24 00:00: mouth 2 [place] tablet 00 (two) Medical times Branch daily. metoprolol 2019- Yes [id number] 25mg Take 1 [facility] nivers succinate 2-09 tablet by [facility] o f XL 25 mg 24 00:00: mouth 2 [place] tablet 00 (two) Medical times Branch daily. metoprolol 2019- Yes [id number] 25mg Take 1 [facility] nivers succinate 2-09 tablet by [facility] o f XL 25 mg 24 00:00: mouth 2 [place] tablet 00 (two) Medical times Branch daily. metoprolol 2019- Yes [id number] 25mg Take 1 [facility] nivers succinate 2-09 tablet by [facility] o f XL 25 mg 24 00:00: mouth 2 [place] tablet 00 (two) Medical times Branch daily. metoprolol 2019- Yes [id number] 25mg Take 1 [facility] nivers succinate 2-09 tablet by [facility] o f XL 25 mg 24 00:00: mouth 2 [place] tablet 00 (two) Medical times Branch daily. metoprolol 2020-1 Yes [id number] 25mg Take 1 [facility] nivers succinate 2-09 tablet by [facility] o f XL 25 mg 24 00:00: mouth 2 [place] tablet 00 (two) Medical times Branch daily. metoprolol 2019- Yes [id number] 25mg Take 1 [facility] nivers succinate 2-09 tablet by [facility] o f XL 25 mg 24 00:00: mouth 2 [place] tablet 00 (two) Medical times Branch daily. metoprolol 2019- Yes [id number] 25mg Take 1 [facility] nivers succinate 2-09 tablet by [facility] o f XL 25 mg 24 00:00: mouth 2 [place] tablet 00 (two) Medical times Branch daily. metoprolol 2019- Yes [id number] 25mg Take 1 [facility] nivers succinate 2-09 tablet by [facility] o f XL 25 mg 24 00:00: mouth 2 [place] tablet 00 (two) Medical times Branch daily. metoprolol 2019- Yes [id number] 25mg Take 1 [facility] nivers succinate 2-09 tablet by [facility]y o f XL 25 mg 24 00:00: mouth 2 [place] tablet 00 (two) Medical times Branch daily. metoprolol 2019- Yes [id number] 25mg Take 1 [facility] nivers succinate 2-09 tablet by [facility] o f XL 25 mg 24 00:00: mouth 2 [place] tablet 00 (two) Medical times Branch daily. metoprolol 2019- Yes [id number] 25mg Take 1 [facility] nivers succinate 2-09 tablet by ity o f XL 25 mg 24 00:00: mouth 2 [place] tablet 00 (two) Medical times Branch daily. metoprolol 2019-1 Yes [id number] 25mg Take 1 [facility] n[facility] succinate 2-09 tablet by ity o f XL 25 mg 24 00:00: mouth 2 [place] tablet 00 (two) Medical times Branch daily. metoprolol 2019- Yes [id number] 25mg Take 1 [facility] nivers succinate 2-09 tablet by [facility] o f XL 25 mg 24 00:00: mouth 2 [place] tablet 00 (two) Medical times Branch daily. metoprolol 2020- Yes [id number] 25mg Take 1 [facility] nivers succinate 2-09 tablet by [facility] o f XL 25 mg 24 00:00: mouth 2 [place] tablet 00 (two) Medical times Branch daily. metoprolol 2020-1 Yes [id number] 25mg Take 1 [facility] nivers succinate 2-09 tablet by ity o f XL 25 mg 24 00:00: mouth 2 [place] tablet 00 (two) Medical times Branch daily. metoprolol 2019- Yes [id number] 25mg Take 1 [facility] nivers succinate 2-09 tablet by [facility]y o f XL 25 mg 24 00:00: mouth 2 [place] tablet 00 (two) Medical times Branch daily. metoprolol 2019- Yes [id number] 25mg Take 1 [facility] nivers succinate 2-09 tablet by [facility] o f XL 25 mg 24 00:00: mouth 2 [place] tablet 00 (two) Medical times Branch daily. metoprolol 2019- Yes [id number] 25mg Take 1 [facility] nivers succinate 2-09 tablet by ity o f XL 25 mg 24 00:00: mouth 2 [place] tablet 00 (two) Medical times Branch daily. metoprolol 2019- Yes [id number] 25mg Take 1 [facility] nivers succinate 2-09 tablet by ity o f XL 25 mg 24 00:00: mouth 2 [place] tablet 00 (two) Medical times Branch daily. metoprolol 2019- Yes [id number] 25mg Take 1 [facility] nivers succinate 2-09 tablet by ity o f XL 25 mg 24 00:00: mouth 2 [place] tablet 00 (two) Medical times Branch daily. metoprolol 2019- Yes [id number] 25mg Take 1 [facility] nivers succinate 2-09 tablet by ity o f XL 25 mg 24 00:00: mouth 2 [place] tablet 00 (two) Medical times Branch daily. metoprolol 2019-1 Yes [id number] 25mg Take 1 [facility] nivers succinate 2-09 tablet by ity o f XL 25 mg 24 00:00: mouth 2 [place] tablet 00 (two) Medical times Branch daily. metoprolol 2019- Yes [id number] 25mg Take 1 [facility] nivers succinate 2-09 tablet by ity o f XL 25 mg 24 00:00: mouth 2 [place] tablet 00 (two) Medical times Branch daily. metoprolol 2020-1 Yes [id number] 25mg Take 1 [facility] nivers succinate 2-09 tablet by ity o f XL 25 mg 24 00:00: mouth 2 [place] hr tablet 00 (two) Medical times Branch daily. metoprolol 2019-09- No [id number] 25mg Take 1 [facility] succinate 10-26 05-21 tablet by [facility]y of XL 25 mg 24 00:00: 00:00 mouth 2 [place] hr tablet 00 :00 (two) Medical times Branch daily. clopidogreL 2019-09- No [id number] 75mg Take 1 [facility] (PLAVIX) 75 10-26 [id number] tablet by [facility]y of mg tablet 00:00: 00:00 mouth [place] 00 :00 daily. Medical Branch pravastatin 2019-09- No [id number] 10mg Take 1 [facility] 10 mg 10-26 [id number] tablet by [facility] of tablet 00:00: 00:00 mouth [place] 00 :00 every Medical other day. Branch tiZANidine 2019-09 Yes [id number] 4mg Take 1-2 [facility] 4 mg tablet 2-07 [id number] tablets by ity of 00:00: mouth [place] 00 every 8 Medical (eight) Branch hours as needed (muscle pain or spasm). metformin 2019-09 Yes [id number] 500mg Take 1 [facility] nivers ER 500 mg 2-07 tablet by ity o f 24 hr 00:00: mouth 2 [place] tablet 00 (two) Medical times Branch daily with meals. triamterene 2019-09 Yes [id number] 1{tbl} Take 1 [facility] -hydrochlor 2-07 tablet by ity of othiazid 00:00: mouth [place] 37.5-25 mg 00 daily. Medical tablet Branch tiZANidine 2019-09 Yes [id number] 4mg Take 1-2 [facility] 4 mg tablet 2-07 [id number] tablets by ity of 00:00: mouth [place] 00 every 8 Medical (eight) Branch hours as needed (muscle pain or spasm). metformin 2019-09 Yes [id number] 500mg Take 1 [facility] nivers ER 500 mg 2-07 tablet by ity o f 24 hr 00:00: mouth 2 [place] tablet 00 (two) Medical times Branch daily with meals. triamterene 2019-09 Yes [id number] 1{tbl} Take 1 [facility] -hydrochlor 2-07 tablet by ity of othiazid 00:00: mouth [place] 37.5-25 mg 00 daily. Medical tablet Branch tiZANidine 2019-09 Yes [id number] 4mg Take 1-2 [facility] 4 mg tablet 2-07 [id number] tablets by ity of 00:00: mouth [place] 00 every 8 Medical (eight) Branch hours as needed (muscle pain or spasm). metformin 2019-09 Yes [id number] 500mg Take 1 [facility] nivers ER 500 mg 2-07 tablet by ity o f 24 hr 00:00: mouth 2 [place] tablet 00 (two) Medical times Branch daily with meals. triamterene 2019-09 Yes [id number] 1{tbl} Take 1 [facility] -hydrochlor 2-07 tablet by ity of othiazid 00:00: mouth [place] 37.5-25 mg 00 daily. Medical tablet Branch tiZANidine 2019-09 Yes [id number] 4mg Take 1-2 [facility] 4 mg tablet 2-07 [id number] tablets by ity of 00:00: mouth [place] 00 every 8 Medical (eight) Branch hours as needed (muscle pain or spasm). metformin 2019-09 Yes [id number] 500mg Take 1 [facility] nivers ER 500 mg 2-07 tablet by ity o f 24 hr 00:00: mouth 2 [place] tablet 00 (two) Medical times Branch daily with meals. triamterene 2019-09 Yes [id number] 1{tbl} Take 1 [facility] -hydrochlor 2-07 tablet by ity of othiazid 00:00: mouth [place] 37.5-25 mg 00 daily. Medical tablet Branch tiZANidine 2019-09 Yes [id number] 4mg Take 1-2 [facility] 4 mg tablet 2-07 [id number] tablets by ity of 00:00: mouth [place] 00 every 8 Medical (eight) Branch hours as needed (muscle pain or spasm). metformin 2019-09 Yes [id number] 500mg Take 1 [facility] nivers ER 500 mg 2-07 tablet by ity o f 24 hr 00:00: mouth 2 [place] tablet 00 (two) Medical times Branch daily with meals. triamterene 2019-09 Yes [id number] 1{tbl} Take 1 [facility] -hydrochlor 2-07 tablet by ity of othiazid 00:00: mouth [place] 37.5-25 mg 00 daily. Medical tablet Branch tiZANidine 2019-09 Yes [id number] 4mg Take 1-2 [facility] 4 mg tablet 2-07 [id number] tablets by ity of 00:00: mouth [place] 00 every 8 Medical (eight) Branch hours as needed (muscle pain or spasm). metformin 2019-09 Yes [id number] 500mg Take 1 [facility] nivers ER 500 mg 2-07 tablet by ity o f 24 hr 00:00: mouth 2 [place] tablet 00 (two) Medical times Branch daily with meals. triamterene 2019-09 Yes [id number] 1{tbl} Take 1 [facility] -hydrochlor 2-07 tablet by ity of othiazid 00:00: mouth [place] 37.5-25 mg 00 daily. Medical tablet Branch tiZANidine 2019-09 Yes [id number] 4mg Take 1-2 [facility] 4 mg tablet 2-07 [id number] tablets by ity of 00:00: mouth [place] 00 every 8 Medical (eight) Branch hours as needed (muscle pain or spasm). metformin 2019-09 Yes [id number] 500mg Take 1 [facility] nivers ER 500 mg 2-07 tablet by ity o f 24 hr 00:00: mouth 2 [place] tablet 00 (two) Medical times Branch daily with meals. triamterene 2019-09 Yes [id number] 1{tbl} Take 1 [facility] -hydrochlor 2-07 tablet by ity of othiazid 00:00: mouth [place] 37.5-25 mg 00 daily. Medical tablet Branch tiZANidine 2019-09 Yes [id number] 4mg Take 1-2 [facility] 4 mg tablet 2-07 [id number] tablets by ity of 00:00: mouth [place] 00 every 8 Medical (eight) Branch hours as needed (muscle pain or spasm). metformin 2019-09 Yes [id number] 500mg Take 1 [facility] nivers ER 500 mg 2-07 tablet by ity o f 24 hr 00:00: mouth 2 [place] tablet 00 (two) Medical times Branch daily with meals. triamterene 2019-09 Yes [id number] 1{tbl} Take 1 [facility] -hydrochlor 2-07 tablet by ity of othiazid 00:00: mouth [place] 37.5-25 mg 00 daily. Medical tablet Branch tiZANidine 2019-09 Yes [id number] 4mg Take 1-2 [facility] 4 mg tablet 2-07 [id number] tablets by ity of 00:00: mouth [place] 00 every 8 Medical (eight) Branch hours as needed (muscle pain or spasm). metformin 2019-09 Yes [id number] 500mg Take 1 [facility] nivers ER 500 mg 2-07 tablet by ity o f 24 hr 00:00: mouth 2 [place] tablet 00 (two) Medical times Branch daily with meals. triamterene 2019-09 Yes [id number] 1{tbl} Take 1 [facility] -hydrochlor 2-07 tablet by ity of othiazid 00:00: mouth [place] 37.5-25 mg 00 daily. Medical tablet Branch tiZANidine 2019-09 Yes [id number] 4mg Take 1-2 [facility] 4 mg tablet 2-07 [id number] tablets by ity of 00:00: mouth [place] 00 every 8 Medical (eight) Branch hours as needed (muscle pain or spasm). metformin 2019-09 Yes [id number] 500mg Take 1 [facility] nivers ER 500 mg 2-07 tablet by ity o f 24 hr 00:00: mouth 2 [place] tablet 00 (two) Medical times Branch daily with meals. triamterene 2019-09 Yes [id number] 1{tbl} Take 1 [facility] -hydrochlor 2-07 tablet by ity of othiazid 00:00: mouth [place] 37.5-25 mg 00 daily. Medical tablet Branch tiZANidine 2019-09 Yes [id number] 4mg Take 1-2 [facility] 4 mg tablet 2-07 [id number] tablets by ity of 00:00: mouth [place] 00 every 8 Medical (eight) Branch hours as needed (muscle pain or spasm). metformin 2019-09 Yes [id number] 500mg Take 1 [facility] nivers ER 500 mg 2-07 tablet by ity o f 24 hr 00:00: mouth 2 [place] tablet 00 (two) Medical times Branch daily with meals. triamterene 2019-09 Yes [id number] 1{tbl} Take 1 [facility] -hydrochlor 2-07 tablet by ity of othiazid 00:00: mouth [place] 37.5-25 mg 00 daily. Medical tablet Branch tiZANidine 2019-09 Yes [id number] 4mg Take 1-2 [facility] 4 mg tablet 2-07 [id number] tablets by ity of 00:00: mouth [place] 00 every 8 Medical (eight) Branch hours as needed (muscle pain or spasm). metformin 2019-09 Yes [id number] 500mg Take 1 [facility] nivers ER 500 mg 2-07 tablet by ity o f 24 hr 00:00: mouth 2 [place] tablet 00 (two) Medical times Branch daily with meals. triamterene 2019-09 Yes [id number] 1{tbl} Take 1 [facility] -hydrochlor 2-07 tablet by ity of othiazid 00:00: mouth [place] 37.5-25 mg 00 daily. Medical tablet Branch tiZANidine 2019-09 Yes [id number] 4mg Take 1-2 [facility] 4 mg tablet 2-07 [id number] tablets by ity of 00:00: mouth [place] 00 every 8 Medical (eight) Branch hours as needed (muscle pain or spasm). metformin 2019-09 Yes [id number] 500mg Take 1 [facility] nivers ER 500 mg 2-07 tablet by ity o f 24 hr 00:00: mouth 2 [place] tablet 00 (two) Medical times Branch daily with meals. triamterene 2019-09 Yes [id number] 1{tbl} Take 1 [facility] -hydrochlor 2-07 tablet by ity of othiazid 00:00: mouth [place] 37.5-25 mg 00 daily. Medical tablet Branch tiZANidine 2019-09 Yes [id number] 4mg Take 1-2 [facility] 4 mg tablet 2-07 [id number] tablets by ity of 00:00: mouth [place] 00 every 8 Medical (eight) Branch hours as needed (muscle pain or spasm). metformin 2019-09 Yes [id number] 500mg Take 1 [facility] nivers ER 500 mg 2-07 tablet by ity o f 24 hr 00:00: mouth 2 [place] tablet 00 (two) Medical times Branch daily with meals. triamterene 2019-09 Yes [id number] 1{tbl} Take 1 [facility] -hydrochlor 2-07 tablet by ity of othiazid 00:00: mouth [place] 37.5-25 mg 00 daily. Medical tablet Branch tiZANidine 2019-09 Yes [id number] 4mg Take 1-2 [facility] 4 mg tablet 2-07 [id number] tablets by ity of 00:00: mouth [place] 00 every 8 Medical (eight) Branch hours as needed (muscle pain or spasm). metformin 2019-09 Yes [id number] 500mg Take 1 [facility] nivers ER 500 mg 2-07 tablet by ity o f 24 hr 00:00: mouth 2 [place] tablet 00 (two) Medical times Branch daily with meals. triamterene 2019-09 Yes [id number] 1{tbl} Take 1 [facility] -hydrochlor 2-07 tablet by ity of othiazid 00:00: mouth [place] 37.5-25 mg 00 daily. Medical tablet Branch tiZANidine 2019-09 Yes [id number] 4mg Take 1-2 [facility] 4 mg tablet 2-07 [id number] tablets by ity of 00:00: mouth [place] 00 every 8 Medical (eight) Branch hours as needed (muscle pain or spasm). metformin 2019-09 Yes [id number] 500mg Take 1 [facility] nivers ER 500 mg 2-07 tablet by ity o f 24 hr 00:00: mouth 2 [place] tablet 00 (two) Medical times Branch daily with meals. triamterene 2019-09 Yes [id number] 1{tbl} Take 1 [facility] -hydrochlor 2-07 tablet by ity of othiazid 00:00: mouth [place] 37.5-25 mg 00 daily. Medical tablet Branch tiZANidine 2019-09 Yes [id number] 4mg Take 1-2 [facility] 4 mg tablet 2-07 [id number] tablets by ity of 00:00: mouth [place] 00 every 8 Medical (eight) Branch hours as needed (muscle pain or spasm). metformin 2019-09 Yes [id number] 500mg Take 1 [facility] nivers ER 500 mg 2-07 tablet by ity o f 24 hr 00:00: mouth 2 [place] tablet 00 (two) Medical times Branch daily with meals. triamterene 2019-09 Yes [id number] 1{tbl} Take 1 [facility] -hydrochlor 2-07 tablet by ity of othiazid 00:00: mouth [place] 37.5-25 mg 00 daily. Medical tablet Branch tiZANidine 2019-09 Yes [id number] 4mg Take 1-2 [facility] 4 mg tablet 2-07 [id number] tablets by ity of 00:00: mouth [place] 00 every 8 Medical (eight) Branch hours as needed (muscle pain or spasm). metformin 2019-09 Yes [id number] 500mg Take 1 [facility] nivers ER 500 mg 2-07 tablet by ity o f 24 hr 00:00: mouth 2 [place] tablet 00 (two) Medical times Branch daily with meals. triamterene 2019-09 Yes [id number] 1{tbl} Take 1 [facility] -hydrochlor 2-07 tablet by ity of othiazid 00:00: mouth [place] 37.5-25 mg 00 daily. Medical tablet Branch tiZANidine 2019-09 Yes [id number] 4mg Take 1-2 [facility] 4 mg tablet 2-07 [id number] tablets by ity of 00:00: mouth [place] 00 every 8 Medical (eight) Branch hours as needed (muscle pain or spasm). metformin 2019-09 Yes [id number] 500mg Take 1 [facility] nivers ER 500 mg 2-07 tablet by ity o f 24 hr 00:00: mouth 2 [place] tablet 00 (two) Medical times Branch daily with meals. triamterene 2019-09 Yes [id number] 1{tbl} Take 1 [facility] -hydrochlor 2-07 tablet by ity of othiazid 00:00: mouth [place] 37.5-25 mg 00 daily. Medical tablet Branch tiZANidine 2019-09 Yes [id number] 4mg Take 1-2 [facility] 4 mg tablet 2-07 [id number] tablets by ity of 00:00: mouth [place] 00 every 8 Medical (eight) Branch hours as needed (muscle pain or spasm). metformin 2019-09 Yes [id number] 500mg Take 1 [facility] nivers ER 500 mg 2-07 tablet by ity o f 24 hr 00:00: mouth 2 [place] tablet 00 (two) Medical times Branch daily with meals. triamterene 2019-09 Yes [id number] 1{tbl} Take 1 [facility] -hydrochlor 2-07 tablet by ity of othiazid 00:00: mouth [place] 37.5-25 mg 00 daily. Medical tablet Branch tiZANidine 2019-09 Yes [id number] 4mg Take 1-2 [facility] 4 mg tablet 2-07 [id number] tablets by ity of 00:00: mouth [place] 00 every 8 Medical (eight) Branch hours as needed (muscle pain or spasm). metformin 2019-09 Yes [id number] 500mg Take 1 [facility] nivers ER 500 mg 2-07 tablet by ity o f 24 hr 00:00: mouth 2 [place] tablet 00 (two) Medical times Branch daily with meals. triamterene 2019-09 Yes [id number] 1{tbl} Take 1 [facility] -hydrochlor 2-07 tablet by ity of othiazid 00:00: mouth [place] 37.5-25 mg 00 daily. Medical tablet Branch tiZANidine 2019-09 Yes [id number] 4mg Take 1-2 [facility] 4 mg tablet 2-07 [id number] tablets by ity of 00:00: mouth [place] 00 every 8 Medical (eight) Branch hours as needed (muscle pain or spasm). metformin 2019-09 Yes [id number] 500mg Take 1 [facility] nivers ER 500 mg 2-07 tablet by ity o f 24 hr 00:00: mouth 2 [place] tablet 00 (two) Medical times Branch daily with meals. triamterene 2019-09 Yes [id number] 1{tbl} Take 1 [facility] -hydrochlor 2-07 tablet by ity of othiazid 00:00: mouth [place] 37.5-25 mg 00 daily. Medical tablet Branch tiZANidine 2019-09 Yes [id number] 4mg Take 1-2 [facility] 4 mg tablet 2-07 [id number] tablets by ity of 00:00: mouth [place] 00 every 8 Medical (eight) Branch hours as needed (muscle pain or spasm). metformin 2019-09 Yes [id number] 500mg Take 1 [facility] nivers ER 500 mg 2-07 tablet by ity o f 24 hr 00:00: mouth 2 [place] tablet 00 (two) Medical times Branch daily with meals. triamterene 2019-09 Yes [id number] 1{tbl} Take 1 [facility] -hydrochlor 2-07 tablet by ity of othiazid 00:00: mouth [place] 37.5-25 mg 00 daily. Medical tablet Branch tiZANidine 2019-09 Yes [id number] 4mg Take 1-2 [facility] 4 mg tablet 2-07 [id number] tablets by ity of 00:00: mouth [place] 00 every 8 Medical (eight) Branch hours as needed (muscle pain or spasm). metformin 2019-09 Yes [id number] 500mg Take 1 [facility] nivers ER 500 mg 2-07 tablet by ity o f 24 hr 00:00: mouth 2 [place] tablet 00 (two) Medical times Branch daily with meals. triamterene 2019-09 Yes [id number] 1{tbl} Take 1 [facility] -hydrochlor 2-07 tablet by ity of othiazid 00:00: mouth [place] 37.5-25 mg 00 daily. Medical tablet Branch tiZANidine 2019-09 Yes [id number] 4mg Take 1-2 [facility] 4 mg tablet 2-07 [id number] tablets by ity of 00:00: mouth [place] 00 every 8 Medical (eight) Branch hours as needed (muscle pain or spasm). metformin 2019-09 Yes [id number] 500mg Take 1 [facility] nivers ER 500 mg 2-07 tablet by ity o f 24 hr 00:00: mouth 2 [place] tablet 00 (two) Medical times Branch daily with meals. triamterene 2019-09 Yes [id number] 1{tbl} Take 1 [facility] -hydrochlor 2-07 tablet by ity of othiazid 00:00: mouth [place] 37.5-25 mg 00 daily. Medical tablet Branch tiZANidine 2019-09 Yes [id number] 4mg Take 1-2 [facility] 4 mg tablet 2-07 [id number] tablets by ity of 00:00: mouth [place] 00 every 8 Medical (eight) Branch hours as needed (muscle pain or spasm). metformin 2019-09 Yes [id number] 500mg Take 1 [facility] nivers ER 500 mg 2-07 tablet by ity o f 24 hr 00:00: mouth 2 [place] tablet 00 (two) Medical times Branch daily with meals. triamterene 2019-09 Yes [id number] 1{tbl} Take 1 [facility] -hydrochlor 2-07 tablet by ity of othiazid 00:00: mouth [place] 37.5-25 mg 00 daily. Medical tablet Branch tiZANidine 2019-09 Yes [id number] 4mg Take 1-2 [facility] 4 mg tablet 2-07 [id number] tablets by ity of 00:00: mouth [place] 00 every 8 Medical (eight) Branch hours as needed (muscle pain or spasm). metformin 2019-09 Yes [id number] 500mg Take 1 [facility] nivers ER 500 mg 2-07 tablet by ity o f 24 hr 00:00: mouth 2 [place] tablet 00 (two) Medical times Branch daily with meals. triamterene 2019-09 Yes [id number] 1{tbl} Take 1 [facility] -hydrochlor 2-07 tablet by ity of othiazid 00:00: mouth [place] 37.5-25 mg 00 daily. Medical tablet Branch tiZANidine 2019-09 Yes [id number] 4mg Take 1-2 [facility] 4 mg tablet 2-07 [id number] tablets by [facility] of 00:00: mouth [place] 00 every 8 Medical (eight) Branch hours as needed (muscle pain or spasm). metformin 2019-09 Yes [id number] 500mg Take 1 [facility] 500 mg 2-07 tablet by ity o f 24 hr 00:00: mouth 2 [place] tablet 00 (two) Medical times Branch daily with meals. triamterene 2019-09 Yes [id number] 1{tbl} Take 1 [facility] -hydrochlor 2-07 tablet by ity of othiazid 00:00: mouth [place] 37.5-25 mg 00 daily. Medical tablet Branch tiZANidine 2019-09 Yes [id number] 4mg Take 1-2 [facility] 4 mg tablet 2-07 [id number] tablets by it[facility] of 00:00: mouth [place] 00 every 8 Medical (eight) Branch hours as needed (muscle pain or spasm). metformin 2019-09 Yes [id number] 500mg Take 1 [facility] 500 mg 2-07 tablet by ity o f 24 hr 00:00: mouth 2 [place] tablet 00 (two) Medical times Branch daily with meals. triamterene 2019-09 Yes [id number] 1{tbl} Take 1 [facility] -hydrochlor 2-07 tablet by ity of othiazid 00:00: mouth [place] 37.5-25 mg 00 daily. Medical tablet Branch tiZANidine 2019-09 Yes [id number] 4mg Take 1-2 [facility] 4 mg tablet 2-07 [id number] tablets by ity of 00:00: mouth [place] 00 every 8 Medical (eight) Branch hours as needed (muscle pain or spasm). metformin 2019-09 Yes [id number] 500mg Take 1 [facility] 500 mg 2-07 tablet by ity o f 24 hr 00:00: mouth 2 [place] tablet 00 (two) Medical times Branch daily with meals. triamterene 2019-09 Yes [id number] 1{tbl} Take 1 [facility] -hydrochlor 2-07 tablet by ity of othiazid 00:00: mouth [place] 37.5-25 mg 00 daily. Medical tablet Branch tiZANidine 2019-09 Yes [id number] 4mg Take 1-2 [facility] 4 mg tablet 2-07 [id number] tablets by [facility] of 00:00: mouth [place] 00 every 8 Medical (eight) Branch hours as needed (muscle pain or spasm). metformin 2019-09 Yes [id number] 500mg Take 1 [facility] 500 mg 2-07 tablet by ity o f 24 hr 00:00: mouth 2 [place] tablet 00 (two) Medical times Branch daily with meals. triamterene 2019-09 Yes [id number] 1{tbl} Take 1 [facility] -hydrochlor 2-07 tablet by ity of othiazid 00:00: mouth [place] 37.5-25 mg 00 daily. Medical tablet Branch tiZANidine 2019-09 Yes [id number] 4mg Take 1-2 [facility] 4 mg tablet 2-07 [id number] tablets by ity of 00:00: mouth [place] 00 every 8 Medical (eight) Branch hours as needed (muscle pain or spasm). metformin 2019-09 Yes [id number] 500mg Take 1 [facility] 500 mg 2-07 tablet by ity o f 24 hr 00:00: mouth 2 [place] tablet 00 (two) Medical times Branch daily with meals. triamterene 2019-09 Yes [id number] 1{tbl} Take 1 [facility] -hydrochlor 2-07 tablet by ity of othiazid 00:00: mouth [place] 37.5-25 mg 00 daily. Medical tablet Branch tiZANidine 2019-09 Yes [id number] 4mg Take 1-2 [facility] 4 mg tablet 2-07 [id number] tablets by it[facility] of 00:00: mouth [place] 00 every 8 Medical (eight) Branch hours as needed (muscle pain or spasm). metformin 2019-09 Yes [id number] 500mg Take 1 [facility] 500 mg 2-07 tablet by ity o f 24 hr 00:00: mouth 2 [place] tablet 00 (two) Medical times Branch daily with meals. triamterene 2019-09 Yes [id number] 1{tbl} Take 1 [facility] -hydrochlor 2-07 tablet by ity of othiazid 00:00: mouth [place] 37.5-25 mg 00 daily. Medical tablet Branch tiZANidine 2019-09 Yes [id number] 4mg Take 1-2 [facility] 4 mg tablet 2-07 [id number] tablets by ity of 00:00: mouth [place] 00 every 8 Medical (eight) Branch hours as needed (muscle pain or spasm). metformin 2019-09 Yes [id number] 500mg Take 1 [facility] 500 mg 2-07 tablet by ity o f 24 hr 00:00: mouth 2 [place] tablet 00 (two) Medical times Branch daily with meals. triamterene 2019-09 Yes [id number] 1{tbl} Take 1 [facility] -hydrochlor 2-07 tablet by ity of othiazid 00:00: mouth [place] 37.5-25 mg 00 daily. Medical tablet Branch tiZANidine 2020- Yes [id number] 4mg Take 1-2 [facility] 4 mg tablet 2-07 [id number] tablets by it[facility] of 00:00: mouth [place] 00 every 8 Medical (eight) Branch hours as needed (muscle pain or spasm). triamterene 2020- Yes [id number] 1{tbl} Take 1 [facility] -hydrochlor 2-07 tablet by ity of othiazid 00:00: mouth [place] 37.5-25 mg 00 daily. Medical tablet Branch tiZANidine 2019- Yes [id number] 4mg Take 1-2 [facility] 4 mg tablet 2-07 [id number] tablets by ity of 00:00: mouth [place] 00 every 8 Medical (eight) Branch hours as needed (muscle pain or spasm). triamterene 2020- Yes [id number] 1{tbl} Take 1 [facility] -hydrochlor 2-07 tablet by ity of othiazid 00:00: mouth [place] 37.5-25 mg 00 daily. Medical tablet Branch tiZANidine 2019- Yes [id number] 4mg Take 1-2 [facility] 4 mg tablet 2-07 [id number] tablets by it[facility] of 00:00: mouth [place] 00 every 8 Medical (eight) Branch hours as needed (muscle pain or spasm). triamterene 2020- Yes [id number] 1{tbl} Take 1 [facility] -hydrochlor 2-07 tablet by ity of othiazid 00:00: mouth [place] 37.5-25 mg 00 daily. Medical tablet Branch tiZANidine 2020- Yes [id number] 4mg Take 1-2 [facility] 4 mg tablet 2-07 [id number] tablets by ity of 00:00: mouth [place] 00 every 8 Medical (eight) Branch hours as needed (muscle pain or spasm). triamterene 2020- Yes [id number] 1{tbl} Take 1 [facility] -hydrochlor 2-07 tablet by ity of othiazid 00:00: mouth [place] 37.5-25 mg 00 daily. Medical tablet Branch tiZANidine 2019- Yes [id number] 4mg Take 1-2 [facility] 4 mg tablet 2-07 [id number] tablets by ity of 00:00: mouth [place] 00 every 8 Medical (eight) Branch hours as needed (muscle pain or spasm). triamterene 2020- Yes [id number] 1{tbl} Take 1 [facility] -hydrochlor 2-07 tablet by ity of othiazid 00:00: mouth [place] 37.5-25 mg 00 daily. Medical tablet Branch tiZANidine 2019- Yes [id number] 4mg Take 1-2 [facility] 4 mg tablet 2-07 [id number] tablets by ity of 00:00: mouth [place] 00 every 8 Medical (eight) Branch hours as needed (muscle pain or spasm). triamterene 2019- Yes [id number] 1{tbl} Take 1 [facility] -hydrochlor 2-07 tablet by ity of othiazid 00:00: mouth [place] 37.5-25 mg 00 daily. Medical tablet Branch tiZANidine 2019- Yes [id number] 4mg Take 1-2 [facility] 4 mg tablet 2-07 [id number] tablets by ity of 00:00: mouth [place] 00 every 8 Medical (eight) Branch hours as needed (muscle pain or spasm). triamterene 2019- Yes [id number] 1{tbl} Take 1 [facility] -hydrochlor 2-07 tablet by ity of othiazid 00:00: mouth [place] 37.5-25 mg 00 daily. Medical tablet Branch tiZANidine 2019- Yes [id number] 4mg Take 1-2 [facility] 4 mg tablet 2-07 [id number] tablets by ity of 00:00: mouth [place] 00 every 8 Medical (eight) Branch hours as needed (muscle pain or spasm). triamterene 2019- Yes [id number] 1{tbl} Take 1 [facility] -hydrochlor 2-07 tablet by ity of othiazid 00:00: mouth [place] 37.5-25 mg 00 daily. Medical tablet Branch tiZANidine 2019- Yes [id number] 4mg Take 1-2 [facility] 4 mg tablet 2-07 [id number] tablets by ity of 00:00: mouth [place] 00 every 8 Medical (eight) Branch hours as needed (muscle pain or spasm). tiZANidine 2019- Yes [id number] 4mg Take 1-2 [facility] 4 mg tablet 2-07 [id number] tablets by ity of 00:00: mouth [place] 00 every 8 Medical (eight) Branch hours as needed (muscle pain or spasm). tiZANidine 2019- Yes [id number] 4mg Take 1-2 [facility] 4 mg tablet 2- [id number] tablets by ity of 00:00: mouth [place] 00 every 8 Medical (eight) Branch hours as needed (muscle pain or spasm). tiZANidine 2019- Yes [id number] 4mg Take 1-2 [facility] 4 mg tablet 2- [id number] tablets by ity of 00:00: mouth [place] 00 every 8 Medical (eight) Branch hours as needed (muscle pain or spasm). tiZANidine 2019-09 Yes [id number] 4mg Take 1-2 [facility] 4 mg tablet 2- [id number] tablets by ity of 00:00: mouth [place] 00 every 8 Medical (eight) Branch hours as needed (muscle pain or spasm). tiZANidine 2019-09 Yes [id number] 4mg Take 1-2 [facility] 4 mg tablet 2- [id number] tablets by ity of 00:00: mouth [place] 00 every 8 Medical (eight) Branch hours as needed (muscle pain or spasm). tiZANidine 2019-09 Yes [id number] 4mg Take 1-2 [facility] 4 mg tablet 2- [id number] tablets by ity of 00:00: mouth [place] 00 every 8 Medical (eight) Branch hours as needed (muscle pain or spasm). tiZANidine 2019-09 Yes [id number] 4mg Take 1-2 [facility] 4 mg tablet 2- [id number] tablets by ity of 00:00: mouth [place] 00 every 8 Medical (eight) Branch hours as needed (muscle pain or spasm). tiZANidine 2019-09 Yes [id number] 4mg Take 1-2 [facility] 4 mg tablet 2- [id number] tablets by ity of 00:00: mouth [place] 00 every 8 Medical (eight) Branch hours as needed (muscle pain or spasm). tiZANidine 2019-09 Yes [id number] 4mg Take 1-2 [facility] 4 mg tablet 2- [id number] tablets by ity of 00:00: mouth [place] 00 every 8 Medical (eight) Branch hours as needed (muscle pain or spasm). tiZANidine 2019-09 Yes [id number] 4mg Take 1-2 [facility] 4 mg tablet 2- [id number] tablets by ity of 00:00: mouth [place] 00 every 8 Medical (eight) Branch hours as needed (muscle pain or spasm). tiZANidine 2019-09 Yes [id number] 4mg Take 1-2 [facility] 4 mg tablet 10-24 [id number] tablets by ity of 00:00: mouth [place] 00 every 8 Medical (eight) Branch hours as needed (muscle pain or spasm). triamterene 2019-09- No [id number] 1{tbl} Take 1 [facility] -hydrochlor 2-03 22- tablet by it y of othiazid 00:00: 00:00 mouth [place] 37.5-25 mg 00 :00 daily. Medical tablet Branch metformin 2019-09- No [id number] 500mg Take 1 [facility] ER 500 mg 2- tablet by ity of 24 hr 00:00: 00:00 mouth 2 [place] tablet 00 :00 (two) Medical times Branch daily with meals. metformin 2019-09 No [id number] 500mg Take 1 [facility] ER 500 mg 10-24- tablet by ity of 24 hr 00:00: 00:00 mouth 2 [place] tablet 00 :00 (two) Medical times Branch daily with meals. triamterene 2019-09 No [id number] 1{tbl} Take 1 [facility] -hydrochlor 2-03 28- tablet by it y of othiazid 00:00: 00:00 mouth [place] 37.5-25 mg 00 :00 daily. Medical tablet Branch triamterene 2019-09- No [id number] 1{tbl} Take 1 [facility] -hydrochlor 2-03 28- tablet by it y of othiazid 00:00: 00:00 mouth [place] 37.5-25 mg 00 :00 daily. Medical tablet Branch METFORMIN 2019-09 Yes [id number] TAKE 1 [facility] [place] ER 750 mg 1-28 TABLET BY ity o f 24 hr 00:00: MOUTH [place] tablet 00 TWICE A Medical DAY WITH Branch MEALS METFORMIN 2019-09 Yes [id number] TAKE 1 [facility] [place] ER 750 mg 1-28 TABLET BY ity o f 24 hr 00:00: MOUTH [place] tablet 00 TWICE A Medical DAY WITH Branch MEALS METFORMIN 2019-09- No [id number] TAKE 1 [facility] ER 750 mg 1-28 12- TABLET BY ity of 24 hr 00:00: 00:00 MOUTH [place] tablet 00 :00 TWICE A Medical DAY WITH Branch MEALS METFORMIN 2019-09- No [id number] TAKE 1 [facility] ER 750 mg 1-28 12-07 TABLET BY ity of 24 hr 00:00: 00:00 MOUTH [place] tablet 00 :00 TWICE A Medical DAY WITH Branch MEALS DOCOSAHEXAN 2019-09 Yes Take by [facility] [place] OIC 0-23 mouth. ity of ACID/EPA 17:03: [place] (FISH OIL 43 Medical ORAL) Branch alcaftadine 2019- Yes Place in [facility] (LASTACAFT) 0-23 each eye. ity of 0.25 % Drop 17:03: [place] [address] Medical Branch CYCLOSPORIN 2019- Yes Place in [facility] E (RESTASIS 0-23 each eye. ity of OPHTHALMIC) 17:03: [place] [address] Medical Branch DOCOSAHEXAN 2019-09 Yes Take by [facility] [place] OIC 0-23 mouth. ity of ACID/EPA 17:03: [place] (FISH OIL 43 Medical ORAL) Branch vitamin E 2019-09 Yes 1000U Take 1,000 [facility] 1,000 unit 0-23 Units by ity o f capsule 17:03: mouth [place] 43 daily. Medical Branch Magnesium 2019- Yes Take by [facility] ers 250 mg Tab 0-23 mouth. ity of 17:03: [place] [address] Medical Branch vitamin B-6 2019- Yes 100mg Take 100 [facility] (VITAMIN 0-23 mg by ity of B-6) 100 mg 17:03: mouth [place] tablet 43 daily. Medical Branch CALCIUM 2019- Yes Take by [facility] CARBONATE/V 0-23 mouth. ity of ITAMIN D3 17:03: [place] (VITAMIN 43 Medical D-3 ORAL) Branch alcaftadine 2019-[address] in [facility] (LASTACAFT) 0-23 each eye. ity of 0.25 % Drop 17:03: [place] [address] Medical Branch CYCLOSPORIN 2019- Yes Place in [facility] E (RESTASIS 0-23 each eye. ity of OPHTHALMIC) 17:03: [place] [address] Medical Branch DOCOSAHEXAN 2019- Yes Take by [facility] [place] OIC 0-23 mouth. ity of ACID/EPA 17:03: [place] (FISH OIL 43 Medical ORAL) Branch vitamin E 2019- Yes 1000U Take 1,000 [facility] 1,000 unit 0-23 Units by ity o f capsule 17:03: mouth [place] 43 daily. Medical Branch Magnesium 2020- Yes Take by [facility] ers 250 mg Tab 0-23 mouth. ity of 17:03: [place] [address] Medical Branch vitamin B-6 2019- Yes 100mg Take 100 [facility] (VITAMIN 0-23 mg by ity of B-6) 100 mg 17:03: mouth [place] tablet 43 daily. Medical Branch CALCIUM 2020- Yes Take by [facility] CARBONATE/V 0-23 mouth. ity of ITAMIN D3 17:03: [place] (VITAMIN 43 Medical D-3 ORAL) Branch alcaftadine 2019- Yes Place in [facility] (LASTACAFT) 0-23 each eye. ity of 0.25 % Drop 17:03: [place] [address] Medical Branch CYCLOSPORIN 2019- Yes Place in [facility] E (RESTASIS 0-23 each eye. ity of OPHTHALMIC) 17:03: [place] [address] Medical Branch DOCOSAHEXAN 2019-09 Yes Take by [facility] [place] OIC 0-23 mouth. ity of ACID/EPA 17:03: [place] (FISH OIL 43 Medical ORAL) Branch vitamin E 2019-09 Yes 1000U Take 1,000 [facility] 1,000 unit 0-23 Units by ity o f capsule 17:03: mouth [place] 43 daily. Medical Branch Magnesium 2020- Yes Take by [facility] ers 250 mg Tab 0-23 mouth. ity of 17:03: [place] [address] Medical Branch vitamin B-6 2019-09 Yes 100mg Take 100 [facility] (VITAMIN 0-23 mg by ity of B-6) 100 mg 17:03: mouth [place] tablet 43 daily. Medical Branch CALCIUM 2019- Yes Take by [facility] CARBONATE/V 0-23 mouth. ity of ITAMIN D3 17:03: [place] (VITAMIN 43 Medical D-3 ORAL) Branch alcaftadine 2019-[address] in [facility] (LASTACAFT) 0-23 each eye. ity of 0.25 % Drop 17:03: [place] [address] Medical Branch CYCLOSPORIN 2019- Yes Place in [facility] E (RESTASIS 0-23 each eye. ity of OPHTHALMIC) 17:03: [place] [address] Medical Branch DOCOSAHEXAN 2019- Yes Take by [facility] [place] OIC 0-23 mouth. ity of ACID/EPA 17:03: [place] (FISH OIL 43 Medical ORAL) Branch vitamin E 2020- Yes 1000U Take 1,000 [facility] 1,000 unit 0-23 Units by ity o f capsule 17:03: mouth [place] 43 daily. Medical Branch Magnesium 2020- Yes Take by [facility] ers 250 mg Tab 0-23 mouth. ity of 17:03: [place] [address] Medical Branch vitamin B-6 2019- Yes 100mg Take 100 [facility] (VITAMIN 0-23 mg by ity of B-6) 100 mg 17:03: mouth [place] tablet 43 daily. Medical Branch CALCIUM 2019- Yes Take by [facility] CARBONATE/V 0-23 mouth. ity of ITAMIN D3 17:03: [place] (VITAMIN 43 Medical D-3 ORAL) Branch alcaftadine 2019- Yes Place in [facility] (LASTACAFT) 0-23 each eye. ity of 0.25 % Drop 17:03: [place] [address] Medical Branch CYCLOSPORIN 2019-[address] in [facility] E (RESTASIS 0-23 each eye. ity of OPHTHALMIC) 17:03: [place] [address] Medical Branch DOCOSAHEXAN 2019-09 Yes Take by [facility] [place] OIC 0-23 mouth. ity of ACID/EPA 17:03: [place] (FISH OIL 43 Medical ORAL) Branch vitamin E 2019- Yes 1000U Take 1,000 [facility] 1,000 unit 0-23 Units by ity o f capsule 17:03: mouth [place] 43 daily. Medical Branch Magnesium 2020- Yes Take by [facility] ers 250 mg Tab 0-23 mouth. ity of 17:03: [place] [address] Medical Branch vitamin B-6 2019-09 Yes 100mg Take 100 [facility] (VITAMIN 0-23 mg by ity of B-6) 100 mg 17:03: mouth [place] tablet 43 daily. Medical Branch CALCIUM 2019- Yes Take by [facility] CARBONATE/V 0-23 mouth. ity of ITAMIN D3 17:03: [place] (VITAMIN 43 Medical D-3 ORAL) Branch alcaftadine 2019-[address] in [facility] (LASTACAFT) 0-23 each eye. ity of 0.25 % Drop 17:03: [place] [address] Medical Branch CYCLOSPORIN 2019- Yes Place in [facility] E (RESTASIS 0-23 each eye. ity of OPHTHALMIC) 17:03: [place] [address] Medical Branch DOCOSAHEXAN 2019- Yes Take by [facility] [place] OIC 0-23 mouth. ity of ACID/EPA 17:03: [place] (FISH OIL 43 Medical ORAL) Branch vitamin E 2020- Yes 1000U Take 1,000 [facility] 1,000 unit 0-23 Units by ity o f capsule 17:03: mouth [place] 43 daily. Medical Branch Magnesium 2019- Yes Take by [facility] ers 250 mg Tab 0-23 mouth. ity of 17:03: [place] [address] Medical Branch vitamin B-6 2019-09 Yes 100mg Take 100 [facility] (VITAMIN 0-23 mg by ity of B-6) 100 mg 17:03: mouth [place] tablet 43 daily. Medical Branch CALCIUM 2019-09 Yes Take by [facility] CARBONATE/V 0-23 mouth. ity of ITAMIN D3 17:03: [place] (VITAMIN 43 Medical D-3 ORAL) Branch alcaftadine 2019-[address] in [facility] (LASTACAFT) 0-23 each eye. ity of 0.25 % Drop 17:03: [place] [address] Medical Branch CYCLOSPORIN 2019-[address] in [facility] E (RESTASIS 0-23 each eye. ity of OPHTHALMIC) 17:03: [place] [address] Medical Branch DOCOSAHEXAN 2019-09 Yes Take by [facility] [place] OIC 0-23 mouth. ity of ACID/EPA 17:03: [place] (FISH OIL 43 Medical ORAL) Branch vitamin E 2019-09 Yes 1000U Take 1,000 [facility] 1,000 unit 0-23 Units by ity o f capsule 17:03: mouth [place] 43 daily. Medical Branch Magnesium 2019- Yes Take by [facility] ers 250 mg Tab 0-23 mouth. ity of 17:03: [place] [address] Medical Branch vitamin B-6 2019-09 Yes 100mg Take 100 [facility] (VITAMIN 0-23 mg by ity of B-6) 100 mg 17:03: mouth [place] tablet 43 daily. Medical Branch CALCIUM 2019-09 Yes Take by [facility] CARBONATE/V 0-23 mouth. ity of ITAMIN D3 17:03: [place] (VITAMIN 43 Medical D-3 ORAL) Branch alcaftadine 2019-[address] in [facility] (LASTACAFT) 0-23 each eye. ity of 0.25 % Drop 17:03: [place] [address] Medical Branch CYCLOSPORIN 2019-[address] in [facility] E (RESTASIS 0-23 each eye. ity of OPHTHALMIC) 17:03: [place] [address] Medical Branch DOCOSAHEXAN 2019-09 Yes Take by [facility] [place] OIC 0-23 mouth. ity of ACID/EPA 17:03: [place] (FISH OIL 43 Medical ORAL) Branch vitamin E 2019-09 Yes 1000U Take 1,000 [facility] 1,000 unit 0-23 Units by ity o f capsule 17:03: mouth [place] 43 daily. Medical Branch Magnesium 2019- Yes Take by [facility] 250 mg Tab 0-23 mouth. ity of 17:03: [place] [address] Medical Branch vitamin B-6 2019-09 Yes 100mg Take 100 [facility] (VITAMIN 0-23 mg by ity of B-6) 100 mg 17:03: mouth [place] tablet 43 daily. Medical Branch CALCIUM 2019-09 Yes Take by [facility] CARBONATE/V 0-23 mouth. ity of ITAMIN D3 17:03: [place] (VITAMIN 43 Medical D-3 ORAL) Branch alcaftadine 2019-[address] in [facility] (LASTACAFT) 0-23 each eye. ity of 0.25 % Drop 17:03: [place] [address] Medical Branch CYCLOSPORIN 2019-[address] in [facility] E (RESTASIS 0-23 each eye. ity of OPHTHALMIC) 17:03: [place] [address] Medical Branch DOCOSAHEXAN 2019-09 Yes Take by [facility] [place] OIC 0-23 mouth. ity of ACID/EPA 17:03: [place] (FISH OIL 43 Medical ORAL) Branch vitamin E 2019-09 Yes 1000U Take 1,000 [facility] 1,000 unit 0-23 Units by ity o f capsule 17:03: mouth [place] 43 daily. Medical Branch Magnesium 2019- Yes Take by [facility] 250 mg Tab 0-23 mouth. ity of 17:03: [place] [address] Medical Branch vitamin B-6 2019-09 Yes 100mg Take 100 [facility] (VITAMIN 0-23 mg by ity of B-6) 100 mg 17:03: mouth [place] tablet 43 daily. Medical Branch CALCIUM 2019-09 Yes Take by [facility] CARBONATE/V 0-23 mouth. ity of ITAMIN D3 17:03: [place] (VITAMIN 43 Medical D-3 ORAL) Branch alcaftadine 2019-[address] in [facility] (LASTACAFT) 0-23 each eye. ity of 0.25 % Drop 17:03: [place] [address] Medical Branch CYCLOSPORIN 2019-[address] in [facility] E (RESTASIS 0-23 each eye. ity of OPHTHALMIC) 17:03: [place] [address] Medical Branch DOCOSAHEXAN 2019- Yes Take by [facility] OIC 0-23 mouth. ity of ACID/EPA 17:03: [place] (FISH OIL 43 Medical ORAL) Branch vitamin E 2019- Yes 1000U Take 1,000 [facility] 1,000 unit 0-23 Units by ity o f capsule 17:03: mouth [place] 43 daily. Medical Branch Magnesium 2019- Yes Take by [facility] 250 mg Tab 0-23 mouth. ity of 17:03: [place] [address] Medical Branch vitamin B-6 2019- Yes 100mg Take 100 [facility] (VITAMIN 0-23 mg by ity of B-6) 100 mg 17:03: mouth [place] tablet 43 daily. Medical Branch CALCIUM 2019- Yes Take by [facility] CARBONATE/V 0-23 mouth. ity of ITAMIN D3 17:03: [place] (VITAMIN 43 Medical D-3 ORAL) Branch alcaftadine 2019-[address] in [facility] (LASTACAFT) 0-23 each eye. ity of 0.25 % Drop 17:03: [place] [address] Medical Branch CYCLOSPORIN 2019-[address] in [facility] E (RESTASIS 0-23 each eye. ity of OPHTHALMIC) 17:03: [place] [address] Medical Branch DOCOSAHEXAN 2019-09 Yes Take by [facility] OIC 0-23 mouth. ity of ACID/EPA 17:03: [place] (FISH OIL 43 Medical ORAL) Branch vitamin E 2019-09 Yes 1000U Take 1,000 [facility] 1,000 unit 0-23 Units by ity o f capsule 17:03: mouth [place] 43 daily. Medical Branch Magnesium 2020- Yes Take by [facility] 250 mg Tab 0-23 mouth. ity of 17:03: [place] [address] Medical Branch vitamin B-6 2019- Yes 100mg Take 100 [facility] (VITAMIN 0-23 mg by ity of B-6) 100 mg 17:03: mouth [place] tablet 43 daily. Medical Branch CALCIUM 2019- Yes Take by [facility] CARBONATE/V 0-23 mouth. ity of ITAMIN D3 17:03: [place] (VITAMIN 43 Medical D-3 ORAL) Branch alcaftadine 2019-[address] in [facility] (LASTACAFT) 0-23 each eye. ity of 0.25 % Drop 17:03: [place] [address] Medical Branch CYCLOSPORIN 2019- Yes Place in [facility] E (RESTASIS 0-23 each eye. ity of OPHTHALMIC) 17:03: Medical Branch DOCOSAHEXAN 2019- Yes Take by [facility] [place] OIC 0-23 mouth. ity of ACID/EPA 17:03: [place] (FISH OIL 43 Medical ORAL) Branch vitamin E 2019- Yes 1000U Take 1,000 [facility] 1,000 unit 0-23 Units by ity o f capsule 17:03: mouth [place] 43 daily. Medical Branch Magnesium 2019- Yes Take by [facility] 250 mg Tab 0-23 mouth. ity of 17:03: Medical Branch vitamin B-6 2019- Yes 100mg Take 100 [facility] (VITAMIN 0-23 mg by ity of B-6) 100 mg 17:03: mouth [place] tablet 43 daily. Medical Branch CALCIUM 2019- Yes Take by [facility] CARBONATE/V 0-23 mouth. ity of ITAMIN D3 17:03: [place] (VITAMIN 43 Medical D-3 ORAL) Branch alcaftadine 2019-[address] in [facility] (LASTACAFT) 0-23 each eye. ity of 0.25 % Drop 17:03: Medical Branch CYCLOSPORIN 2019- Yes Place in [facility] E (RESTASIS 0-23 each eye. ity of OPHTHALMIC) 17:03: [place] [address] Medical Branch DOCOSAHEXAN 2019- Yes Take by [facility] [place] OIC 0-23 mouth. ity of ACID/EPA 17:03: [place] (FISH OIL 43 Medical ORAL) Branch vitamin E 2019- Yes 1000U Take 1,000 [facility] 1,000 unit 0-23 Units by ity o f capsule 17:03: mouth [place] 43 daily. Medical Branch Magnesium 2020- Yes Take by [facility] 250 mg Tab 0-23 mouth. ity of 17:03: Medical Branch vitamin B-6 2019- Yes 100mg Take 100 [facility] (VITAMIN 0-23 mg by ity of B-6) 100 mg 17:03: mouth [place] tablet 43 daily. Medical Branch CALCIUM 2020- Yes Take by [facility] CARBONATE/V 0-23 mouth. ity of ITAMIN D3 17:03: [place] (VITAMIN 43 Medical D-3 ORAL) Branch alcaftadine 2019- Yes Place in [facility] (LASTACAFT) 0-23 each eye. ity of 0.25 % Drop 17:03: [place] [address] Medical Branch CYCLOSPORIN 2019- Yes Place in [facility] E (RESTASIS 0-23 each eye. ity of OPHTHALMIC) 17:03: [place] [address] Medical Branch DOCOSAHEXAN 2019-09 Yes Take by [facility] OIC 0-23 mouth. ity of ACID/EPA 17:03: [place] (FISH OIL 43 Medical ORAL) Branch vitamin E 2019-09 Yes 1000U Take 1,000 [facility] 1,000 unit 0-23 Units by ity o f capsule 17:03: mouth [place] 43 daily. Medical Branch Magnesium 2019- Yes Take by [facility] 250 mg Tab 0-23 mouth. ity of 17:03: [place] [address] Medical Branch vitamin B-6 2019-09 Yes 100mg Take 100 [facility] (VITAMIN 0-23 mg by ity of B-6) 100 mg 17:03: mouth [place] tablet 43 daily. Medical Branch CALCIUM 2019-09 Yes Take by [facility] CARBONATE/V 0-23 mouth. ity of ITAMIN D3 17:03: [place] (VITAMIN 43 Medical D-3 ORAL) Branch alcaftadine 2019-[address] in [facility] (LASTACAFT) 0-23 each eye. ity of 0.25 % Drop 17:03: [place] [address] Medical Branch CYCLOSPORIN 2019-[address] in [facility] E (RESTASIS 0-23 each eye. ity of OPHTHALMIC) 17:03: [place] [address] Medical Branch DOCOSAHEXAN 2019-09 Yes Take by [facility] OIC 0-23 mouth. ity of ACID/EPA 17:03: [place] (FISH OIL 43 Medical ORAL) Branch vitamin E 2019- Yes 1000U Take 1,000 [facility] 1,000 unit 0-23 Units by ity o f capsule 17:03: mouth [place] 43 daily. Medical Branch Magnesium 2019- Yes Take by [facility] 250 mg Tab 0-23 mouth. ity of 17:03: [place] [address] Medical Branch vitamin B-6 2019-09 Yes 100mg Take 100 [facility] (VITAMIN 0-23 mg by ity of B-6) 100 mg 17:03: mouth [place] tablet 43 daily. Medical Branch CALCIUM 2019- Yes Take by [facility] CARBONATE/V 0-23 mouth. ity of ITAMIN D3 17:03: [place] (VITAMIN 43 Medical D-3 ORAL) Branch alcaftadine 2020- Yes Place in [facility] (LASTACAFT) 0-23 each eye. ity of 0.25 % Drop 17:03: [place] [address] Medical Branch CYCLOSPORIN 2019- Yes Place in [facility] E (RESTASIS 0-23 each eye. ity of OPHTHALMIC) 17:03: [place] [address] Medical Branch DOCOSAHEXAN 2019- Yes Take by [facility] OIC 0-23 mouth. ity of ACID/EPA 17:03: [place] (FISH OIL 43 Medical ORAL) Branch vitamin E 2019- Yes 1000U Take 1,000 [facility] 1,000 unit 0-23 Units by ity o f capsule 17:03: mouth [place] 43 daily. [facility] Magnesium 2019- Yes Take by [facility] 250 mg Tab 0-23 mouth. ity of 17:03: [place] [address] [facility] vitamin B-6 2019-09 Yes 100mg Take 100 [facility] (VITAMIN 0-23 mg by ity of B-6) 100 mg 17:03: mouth [place] tablet 43 daily. [facility] CALCIUM 2019- Yes Take by [facility] CARBONATE/V 0-23 mouth. ity of ITAMIN D3 17:03: [place] (VITAMIN 43 Medical D-3 ORAL) Branch alcaftadine 2019-[address] in [facility] (LASTACAFT) 0-23 each eye. ity of 0.25 % Drop 17:03: [place] [address] [facility] CYCLOSPORIN 2019-[address] in [facility] E (RESTASIS 0-23 each eye. ity of OPHTHALMIC) 17:03: [place] [address] [facility] DOCOSAHEXAN 2019- Yes Take by [facility] 0-23 mouth. ity of ACID/EPA 17:03: [place] (FISH OIL 43 Medical ORAL) Branch vitamin E 2019-09 Yes 1000U Take 1,000 [facility] 1,000 unit 0-23 Units by ity o f capsule 17:03: mouth [place] 43 daily. [facility] Magnesium 2020- Yes Take by [facility] 250 mg Tab 0-23 mouth. ity of 17:03: [place] [address] [facility] vitamin B-6 2019- Yes 100mg Take 100 [facility] (VITAMIN 0-23 mg by ity of B-6) 100 mg 17:03: mouth [place] tablet 43 daily. [facility] CALCIUM 2020- Yes Take by [facility] CARBONATE/V 0-23 mouth. ity of ITAMIN D3 17:03: [place] (VITAMIN 43 Medical D-3 ORAL) Branch alcaftadine 2020- Yes Place in [facility] (LASTACAFT) 0-23 each eye. ity of 0.25 % Drop 17:03: [place] [address] [facility] CYCLOSPORIN 2019- Yes Place in [facility] E (RESTASIS 0-23 each eye. ity of OPHTHALMIC) 17:03: [place] [address] [facility] DOCOSAHEXAN 2019- Yes Take by [facility] 0-23 mouth. ity of ACID/EPA 17:03: [place] (FISH OIL 43 Medical ORAL) Branch vitamin E 2019- Yes 1000U Take 1,000 [facility] 1,000 unit 0-23 Units by ity o f capsule 17:03: mouth [place] 43 daily. [facility] Magnesium 2019- Yes Take by [facility] 250 mg Tab 0-23 mouth. ity of 17:03: [place] [address] [facility] vitamin B-6 2019-09 Yes 100mg Take 100 [facility] (VITAMIN 0-23 mg by ity of B-6) 100 mg 17:03: mouth [place] tablet 43 daily. [facility] CALCIUM 2019- Yes Take by [facility] CARBONATE/V 0-23 mouth. ity of ITAMIN D3 17:03: [place] (VITAMIN 43 Medical D-3 ORAL) Branch alcaftadine 2019-[address] in [facility] (LASTACAFT) 0-23 each eye. ity of 0.25 % Drop 17:03: [place] [address] [facility] CYCLOSPORIN 2019-[address] in [facility] E (RESTASIS 0-23 each eye. ity of OPHTHALMIC) 17:03: [place] [address] [facility] DOCOSAHEXAN 2019- Yes Take by [facility] 0-23 mouth. ity of ACID/EPA 17:03: [place] (FISH OIL 43 Medical ORAL) Branch vitamin E 2019- Yes 1000U Take 1,000 [facility] 1,000 unit 0-23 Units by ity o f capsule 17:03: mouth [place] 43 daily. [facility] Magnesium 2020- Yes Take by [facility] 250 mg Tab 0-23 mouth. ity of 17:03: [place] [address] [facility] vitamin B-6 2019- Yes 100mg Take 100 [facility] (VITAMIN 0-23 mg by ity of B-6) 100 mg 17:03: mouth [place] tablet 43 daily. [facility] CALCIUM 2020- Yes Take by [facility] CARBONATE/V 0-23 mouth. ity of ITAMIN D3 17:03: [place] (VITAMIN 43 Medical D-3 ORAL) Branch alcaftadine 2020- Yes Place in [facility] (LASTACAFT) 0-23 each eye. ity of 0.25 % Drop 17:03: [place] [address] [facility] CYCLOSPORIN 2019- Yes Place in [facility] E (RESTASIS 0-23 each eye. ity of OPHTHALMIC) 17:03: [place] [address] [facility] DOCOSAHEXAN 2019- Yes Take by [facility] 0-23 mouth. ity of ACID/EPA 17:03: [place] (FISH OIL 43 Medical ORAL) Branch vitamin E 2019- Yes 1000U Take 1,000 [facility] 1,000 unit 0-23 Units by ity o f capsule 17:03: mouth [place] 43 daily. [facility] Magnesium 2020- Yes Take by [facility] 250 mg Tab 0-23 mouth. ity of 17:03: [place] [address] [facility] vitamin B-6 2019- Yes 100mg Take 100 [facility] (VITAMIN 0-23 mg by ity of B-6) 100 mg 17:03: mouth [place] tablet 43 daily. [facility] CALCIUM 2019- Yes Take by [facility] CARBONATE/V 0-23 mouth. ity of ITAMIN D3 17:03: [place] (VITAMIN 43 Medical D-3 ORAL) Branch alcaftadine 2019-[address] in [facility] (LASTACAFT) 0-23 each eye. ity of 0.25 % Drop 17:03: [place] [address] [facility] CYCLOSPORIN 2019- Yes Place in [facility] E (RESTASIS 0-23 each eye. ity of OPHTHALMIC) 17:03: [place] [address] [facility] DOCOSAHEXAN 2019- Yes Take by [facility] 0-23 mouth. ity of ACID/EPA 17:03: [place] (FISH OIL 43 Medical ORAL) Branch vitamin E 2019- Yes 1000U Take 1,000 [facility] 1,000 unit 0-23 Units by ity o f capsule 17:03: mouth [place] 43 daily. [facility] Magnesium 2020- Yes Take by [facility] 250 mg Tab 0-23 mouth. ity of 17:03: [place] [address] [facility] vitamin B-6 2019- Yes 100mg Take 100 [facility] (VITAMIN 0-23 mg by ity of B-6) 100 mg 17:03: mouth [place] tablet 43 daily. [facility] CALCIUM 2019- Yes Take by [facility] CARBONATE/V 0-23 mouth. ity of ITAMIN D3 17:03: [place] (VITAMIN 43 Medical D-3 ORAL) Branch alcaftadine 2019- Yes Place in [facility] (LASTACAFT) 0-23 each eye. ity of 0.25 % Drop 17:03: [place] [address] [facility] CYCLOSPORIN 2019- Yes Place in [facility] E (RESTASIS 0-23 each eye. ity of OPHTHALMIC) 17:03: [place] [address] [facility] DOCOSAHEXAN 2019-09 Yes Take by [facility] 0-23 mouth. ity of ACID/EPA 17:03: [place] (FISH OIL 43 Medical ORAL) Branch vitamin E 2019-09 Yes 1000U Take 1,000 [facility] 1,000 unit 0-23 Units by ity o f capsule 17:03: mouth [place] 43 daily. [facility] Magnesium 2019- Yes Take by [facility] 250 mg Tab 0-23 mouth. ity of 17:03: [place] [address] [facility] vitamin B-6 2019- Yes 100mg Take 100 [facility] (VITAMIN 0-23 mg by ity of B-6) 100 mg 17:03: mouth [place] tablet 43 daily. [facility] CALCIUM 2019- Yes Take by [facility] CARBONATE/V 0-23 mouth. ity of ITAMIN D3 17:03: [place] (VITAMIN 43 Medical D-3 ORAL) Branch alcaftadine 2019-[address] in [facility] (LASTACAFT) 0-23 each eye. ity of 0.25 % Drop 17:03: [place] [address] [facility] CYCLOSPORIN 2019- Yes Place in [facility] E (RESTASIS 0-23 each eye. ity of OPHTHALMIC) 17:03: [place] [address] [facility] DOCOSAHEXAN 2019- Yes Take by [facility] 0-23 mouth. ity of ACID/EPA 17:03: [place] (FISH OIL 43 Medical ORAL) Branch vitamin E 2019- Yes 1000U Take 1,000 [facility] 1,000 unit 0-23 Units by ity o f capsule 17:03: mouth [place] 43 daily. [facility] Magnesium 2020- Yes Take by [facility] 250 mg Tab 0-23 mouth. ity of 17:03: [place] [address] [facility] vitamin B-6 2019- Yes 100mg Take 100 [facility] (VITAMIN 0-23 mg by ity of B-6) 100 mg 17:03: mouth [place] tablet 43 daily. [facility] CALCIUM 2019- Yes Take by [facility] CARBONATE/V 0-23 mouth. ity of ITAMIN D3 17:03: [place] (VITAMIN 43 Medical D-3 ORAL) Branch alcaftadine 2019- Yes Place in [facility] (LASTACAFT) 0-23 each eye. ity of 0.25 % Drop 17:03: [place] [address] [facility] CYCLOSPORIN 2019- Yes Place in [facility] E (RESTASIS 0-23 each eye. ity of OPHTHALMIC) 17:03: [place] [address] [facility] DOCOSAHEXAN 2019-09 Yes Take by [facility] 0-23 mouth. ity of ACID/EPA 17:03: [place] (FISH OIL 43 Medical ORAL) Branch vitamin E 2019-09 Yes 1000U Take 1,000 [facility] 1,000 unit 0-23 Units by ity o f capsule 17:03: mouth [place] 43 daily. [facility] Magnesium 2019- Yes Take by [facility] 250 mg Tab 0-23 mouth. ity of 17:03: [place] [address] [facility] vitamin B-6 2019-09 Yes 100mg Take 100 [facility] (VITAMIN 0-23 mg by ity of B-6) 100 mg 17:03: mouth [place] tablet 43 daily. [facility] CALCIUM 2019- Yes Take by [facility] CARBONATE/V 0-23 mouth. ity of ITAMIN D3 17:03: [place] (VITAMIN 43 Medical D-3 ORAL) Branch alcaftadine 2019-[address] in [facility] (LASTACAFT) 0-23 each eye. ity of 0.25 % Drop 17:03: [place] [address] [facility] CYCLOSPORIN 2019- Yes Place in [facility] E (RESTASIS 0-23 each eye. ity of OPHTHALMIC) 17:03: [place] [address] [facility] DOCOSAHEXAN 2019- Yes Take by [facility] 0-23 mouth. ity of ACID/EPA 17:03: [place] (FISH OIL 43 Medical ORAL) Branch vitamin E 2019- Yes 1000U Take 1,000 [facility] 1,000 unit 0-23 Units by ity o f capsule 17:03: mouth [place] 43 daily. [facility] Magnesium 2020- Yes Take by [facility] 250 mg Tab 0-23 mouth. ity of 17:03: [place] [address] [facility] vitamin B-6 2019- Yes 100mg Take 100 [facility] (VITAMIN 0-23 mg by ity of B-6) 100 mg 17:03: mouth [place] tablet 43 daily. [facility] CALCIUM 2019- Yes Take by [facility] CARBONATE/V 0-23 mouth. ity of ITAMIN D3 17:03: [place] (VITAMIN 43 Medical D-3 ORAL) Branch alcaftadine 2019- Yes Place in [facility] (LASTACAFT) 0-23 each eye. ity of 0.25 % Drop 17:03: [place] [address] [facility] CYCLOSPORIN 2019-[address] in [facility] E (RESTASIS 0-23 each eye. ity of OPHTHALMIC) 17:03: [place] [address] [facility] DOCOSAHEXAN 2019-09 Yes Take by [facility] 0-23 mouth. ity of ACID/EPA 17:03: [place] (FISH OIL 43 Medical ORAL) Branch vitamin E 2019- Yes 1000U Take 1,000 [facility] 1,000 unit 0-23 Units by ity o f capsule 17:03: mouth [place] 43 daily. [facility] Magnesium 2020- Yes Take by [facility] 250 mg Tab 0-23 mouth. ity of 17:03: [place] [address] [facility] vitamin B-6 2019-09 Yes 100mg Take 100 [facility] (VITAMIN 0-23 mg by ity of B-6) 100 mg 17:03: mouth [place] tablet 43 daily. [facility] CALCIUM 2019- Yes Take by [facility] CARBONATE/V 0-23 mouth. ity of ITAMIN D3 17:03: [place] (VITAMIN 43 Medical D-3 ORAL) Branch alcaftadine 2019- Yes Place in [facility] (LASTACAFT) 0-23 each eye. ity of 0.25 % Drop 17:03: [place] [address] [facility] CYCLOSPORIN 2019- Yes Place in [facility] E (RESTASIS 0-23 each eye. ity of OPHTHALMIC) 17:03: [place] [address] [facility] DOCOSAHEXAN 2019- Yes Take by [facility] 0-23 mouth. ity of ACID/EPA 17:03: [place] (FISH OIL 43 Medical ORAL) Branch vitamin E 2020- Yes 1000U Take 1,000 [facility] 1,000 unit 0-23 Units by ity o f capsule 17:03: mouth [place] 43 daily. [facility] Magnesium 2019- Yes Take by [facility] 250 mg Tab 0-23 mouth. ity of 17:03: [place] [address] [facility] vitamin B-6 2019-09 Yes 100mg Take 100 [facility] (VITAMIN 0-23 mg by ity of B-6) 100 mg 17:03: mouth [place] tablet 43 daily. [facility] CALCIUM 2019- Yes Take by [facility] CARBONATE/V 0-23 mouth. ity of ITAMIN D3 17:03: [place] (VITAMIN 43 Medical D-3 ORAL) Branch alcaftadine 2019-[address] in [facility] (LASTACAFT) 0-23 each eye. ity of 0.25 % Drop 17:03: [place] [address] [facility] CYCLOSPORIN 2019-[address] in [facility] E (RESTASIS 0-23 each eye. ity of OPHTHALMIC) 17:03: [place] [address] [facility] DOCOSAHEXAN 2019-09 Yes Take by [facility] 0-23 mouth. ity of ACID/EPA 17:03: [place] (FISH OIL 43 Medical ORAL) Branch vitamin E 2019-09 Yes 1000U Take 1,000 [facility] 1,000 unit 0-23 Units by ity o f capsule 17:03: mouth [place] 43 daily. [facility] Magnesium 2019- Yes Take by [facility] 250 mg Tab 0-23 mouth. ity of 17:03: [place] [address] [facility] vitamin B-6 2019-09 Yes 100mg Take 100 [facility] (VITAMIN 0-23 mg by ity of B-6) 100 mg 17:03: mouth [place] tablet 43 daily. [facility] CALCIUM 2019- Yes Take by [facility] CARBONATE/V 0-23 mouth. ity of ITAMIN D3 17:03: [place] (VITAMIN 43 Medical D-3 ORAL) Branch alcaftadine 2019-[address] in [facility] (LASTACAFT) 0-23 each eye. ity of 0.25 % Drop 17:03: [place] [address] [facility] CYCLOSPORIN 2019-[address] in [facility] E (RESTASIS 0-23 each eye. ity of OPHTHALMIC) 17:03: [place] [address] [facility] DOCOSAHEXAN 2019- Yes Take by [facility] 0-23 mouth. ity of ACID/EPA 17:03: [place] (FISH OIL 43 Medical ORAL) Branch vitamin E 2019-09 Yes 1000U Take 1,000 [facility] 1,000 unit 0-23 Units by ity o f capsule 17:03: mouth [place] 43 daily. [facility] Magnesium 2019- Yes Take by [facility] 250 mg Tab 0-23 mouth. ity of 17:03: [place] [address] [facility] vitamin B-6 2019-09 Yes 100mg Take 100 [facility] (VITAMIN 0-23 mg by ity of B-6) 100 mg 17:03: mouth [place] tablet 43 daily. [facility] CALCIUM 2019-09 Yes Take by [facility] CARBONATE/V 0-23 mouth. ity of ITAMIN D3 17:03: [place] (VITAMIN 43 Medical D-3 ORAL) Branch alcaftadine 2019-[address] in [facility] (LASTACAFT) 0-23 each eye. ity of 0.25 % Drop 17:03: [place] [address] [facility] CYCLOSPORIN 2019-[address] in [facility] E (RESTASIS 0-23 each eye. ity of OPHTHALMIC) 17:03: [place] [address] [facility] DOCOSAHEXAN 2019-09 Yes Take by [facility] 0-23 mouth. ity of ACID/EPA 17:03: [place] (FISH OIL 43 Medical ORAL) Branch vitamin E 2019-09 Yes 1000U Take 1,000 [facility] 1,000 unit 0-23 Units by ity o f capsule 17:03: mouth [place] 43 daily. [facility] Magnesium 2019- Yes Take by [facility] 250 mg Tab 0-23 mouth. ity of 17:03: [place] [address] [facility] vitamin B-6 2019-09 Yes 100mg Take 100 [facility] (VITAMIN 0-23 mg by ity of B-6) 100 mg 17:03: mouth [place] tablet 43 daily. [facility] CALCIUM 2019-09 Yes Take by [facility] CARBONATE/V 0-23 mouth. ity of ITAMIN D3 17:03: [place] (VITAMIN 43 Medical D-3 ORAL) Branch alcaftadine 2019-[address] in [facility] (LASTACAFT) 0-23 each eye. ity of 0.25 % Drop 17:03: [place] [address] [facility] CYCLOSPORIN 2019-[address] in [facility] E (RESTASIS 0-23 each eye. ity of OPHTHALMIC) 17:03: [place] [address] [facility] DOCOSAHEXAN 2020- Yes Take by [facility] 0-23 mouth. ity of ACID/EPA 17:03: [place] (FISH OIL 43 Medical ORAL) Branch vitamin E 2019- Yes 1000U Take 1,000 [facility] 1,000 unit 0-23 Units by ity o f capsule 17:03: mouth [place] 43 daily. [facility] Magnesium 2019- Yes Take by [facility] 250 mg Tab 0-23 mouth. ity of 17:03: [place] [address] [facility] vitamin B-6 2019- Yes 100mg Take 100 [facility] (VITAMIN 0-23 mg by ity of B-6) 100 mg 17:03: mouth [place] tablet 43 daily. [facility] CALCIUM 2019- Yes Take by [facility] CARBONATE/V 0-23 mouth. ity of ITAMIN D3 17:03: [place] (VITAMIN 43 Medical D-3 ORAL) Branch alcaftadine 2019-[address] in [facility] (LASTACAFT) 0-23 each eye. ity of 0.25 % Drop 17:03: [place] [address] [facility] CYCLOSPORIN 2019-[address] in [facility] E (RESTASIS 0-23 each eye. ity of OPHTHALMIC) 17:03: [place] [address] [facility] DOCOSAHEXAN 2019-09 Yes Take by [facility] 0-23 mouth. ity of ACID/EPA 17:03: [place] (FISH OIL 43 Medical ORAL) Branch vitamin E 2019-09 Yes 1000U Take 1,000 [facility] 1,000 unit 0-23 Units by ity o f capsule 17:03: mouth [place] 43 daily. [facility] Magnesium 2020- Yes Take by [facility] 250 mg Tab 0-23 mouth. ity of 17:03: [place] [address] [facility] vitamin B-6 2019-09 Yes 100mg Take 100 [facility] (VITAMIN 0-23 mg by ity of B-6) 100 mg 17:03: mouth [place] tablet 43 daily. [facility] CALCIUM 2019- Yes Take by [facility] CARBONATE/V 0-23 mouth. ity of ITAMIN D3 17:03: [place] (VITAMIN 43 Medical D-3 ORAL) Branch alcaftadine 2019-[address] in [facility] (LASTACAFT) 0-23 each eye. ity of 0.25 % Drop 17:03: [place] 43 [facility] CYCLOSPORIN 2020- Yes Place in [facility] E (RESTASIS 0-23 each eye. ity of OPHTHALMIC) 17:03: [place] [address] [facility] DOCOSAHEXAN 2019- Yes Take by [facility] 0-23 mouth. ity of ACID/EPA 17:03: [place] (FISH OIL 43 Medical ORAL) Branch vitamin E 2019- Yes 1000U Take 1,000 [facility] 1,000 unit 0-23 Units by ity o f capsule 17:03: mouth [place] 43 daily. [facility] Magnesium 2019- Yes Take by [facility] 250 mg Tab 0-23 mouth. ity of 17:03: [place] [address] [facility] vitamin B-6 2019- Yes 100mg Take 100 [facility] (VITAMIN 0-23 mg by ity of B-6) 100 mg 17:03: mouth [place] tablet 43 daily. [facility] CALCIUM 2019- Yes Take by [facility] CARBONATE/V 0-23 mouth. ity of ITAMIN D3 17:03: [place] (VITAMIN 43 Medical D-3 ORAL) Branch alcaftadine 2019-[address] in [facility] (LASTACAFT) 0-23 each eye. ity of 0.25 % Drop 17:03: [place] [address] [facility] CYCLOSPORIN 2019-[address] in [facility] E (RESTASIS 0-23 each eye. ity of OPHTHALMIC) 17:03: [place] [address] [facility] DOCOSAHEXAN 2019-09 Yes Take by [facility] 0-23 mouth. ity of ACID/EPA 17:03: [place] (FISH OIL 43 Medical ORAL) Branch vitamin E 2019- Yes 1000U Take 1,000 [facility] 1,000 unit 0-23 Units by ity o f capsule 17:03: mouth [place] 43 daily. [facility] Magnesium 2019- Yes Take by [facility] 250 mg Tab 0-23 mouth. ity of 17:03: [place] [address] [facility] vitamin B-6 2019- Yes 100mg Take 100 [facility] (VITAMIN 0-23 mg by ity of B-6) 100 mg 17:03: mouth [place] tablet 43 daily. [facility] CALCIUM 2019- Yes Take by [facility] CARBONATE/V 0-23 mouth. ity of ITAMIN D3 17:03: [place] (VITAMIN 43 Medical D-3 ORAL) Branch alcaftadine 2019- Yes Place in [facility] (LASTACAFT) 0-23 each eye. ity of 0.25 % Drop 17:03: [place] [address] [facility] CYCLOSPORIN 2019- Yes Place in [facility] E (RESTASIS 0-23 each eye. ity of OPHTHALMIC) 17:03: [place] [address] [facility] DOCOSAHEXAN 2019-09 Yes Take by [facility] 0-23 mouth. ity of ACID/EPA 17:03: [place] (FISH OIL 43 Medical ORAL) Branch vitamin E 2019-09 Yes 1000U Take 1,000 [facility] 1,000 unit 0-23 Units by ity o f capsule 17:03: mouth [place] 43 daily. [facility] Magnesium 2019- Yes Take by [facility] 250 mg Tab 0-23 mouth. ity of 17:03: [place] [address] [facility] vitamin B-6 2019-09 Yes 100mg Take 100 [facility] (VITAMIN 0-23 mg by ity of B-6) 100 mg 17:03: mouth [place] tablet 43 daily. [facility] CALCIUM 2019-09 Yes Take by [facility] CARBONATE/V 0-23 mouth. ity of ITAMIN D3 17:03: [place] (VITAMIN 43 Medical D-3 ORAL) Branch alcaftadine 2019-[address] in [facility] (LASTACAFT) 0-23 each eye. ity of 0.25 % Drop 17:03: [place] [address] [facility] CYCLOSPORIN 2019-[address] in [facility] E (RESTASIS 0-23 each eye. ity of OPHTHALMIC) 17:03: [place] [address] [facility] DOCOSAHEXAN 2019-09 Yes Take by [facility] 0-23 mouth. ity of ACID/EPA 17:03: [place] (FISH OIL 43 Medical ORAL) Branch vitamin E 2019-09 Yes 1000U Take 1,000 [facility] 1,000 unit 0-23 Units by ity o f capsule 17:03: mouth [place] 43 daily. [facility] Magnesium 2019- Yes Take by [facility] 250 mg Tab 0-23 mouth. ity of 17:03: [place] [address] [facility] vitamin B-6 2019-09 Yes 100mg Take 100 [facility] (VITAMIN 0-23 mg by ity of B-6) 100 mg 17:03: mouth [place] tablet 43 daily. [facility] CALCIUM 2019- Yes Take by [facility] CARBONATE/V 0-23 mouth. ity of ITAMIN D3 17:03: [place] (VITAMIN 43 Medical D-3 ORAL) Branch alcaftadine 2020- Yes Place in [facility] (LASTACAFT) 0-23 each eye. ity of 0.25 % Drop 17:03: [place] [address] [facility] CYCLOSPORIN 2020- Yes Place in [facility] E (RESTASIS 0-23 each eye. ity of OPHTHALMIC) 17:03: [place] [address] [facility] DOCOSAHEXAN 2019- Yes Take by [facility] 0-23 mouth. ity of ACID/EPA 17:03: [place] (FISH OIL 43 Medical ORAL) Branch vitamin E 2019- Yes 1000U Take 1,000 [facility] 1,000 unit 0-23 Units by ity o f capsule 17:03: mouth [place] 43 daily. [facility] Magnesium 2019- Yes Take by [facility] 250 mg Tab 0-23 mouth. ity of 17:03: [place] [address] [facility] vitamin B-6 2019- Yes 100mg Take 100 [facility] (VITAMIN 0-23 mg by ity of B-6) 100 mg 17:03: mouth [place] tablet 43 daily. [facility] CALCIUM 2019- Yes Take by [facility] CARBONATE/V 0-23 mouth. ity of ITAMIN D3 17:03: [place] (VITAMIN 43 Medical D-3 ORAL) Branch alcaftadine 2019-[address] in [facility] (LASTACAFT) 0-23 each eye. ity of 0.25 % Drop 17:03: [place] [address] [facility] CYCLOSPORIN 2019-[address] in [facility] E (RESTASIS 0-23 each eye. ity of OPHTHALMIC) 17:03: [place] [address] [facility] DOCOSAHEXAN 2019- Yes Take by [facility] 0-23 mouth. ity of ACID/EPA 17:03: [place] (FISH OIL 43 Medical ORAL) Branch vitamin E 2019- Yes 1000U Take 1,000 [facility] 1,000 unit 0-23 Units by ity o f capsule 17:03: mouth [place] 43 daily. [facility] Magnesium 2020- Yes Take by [facility] 250 mg Tab 0-23 mouth. ity of 17:03: [place] [address] [facility] vitamin B-6 2019- Yes 100mg Take 100 [facility] (VITAMIN 0-23 mg by ity of B-6) 100 mg 17:03: mouth [place] tablet 43 daily. [facility] CALCIUM 2020-1 Yes Take by [facility] CARBONATE/V 0-23 mouth. ity of ITAMIN D3 17:03: [place] (VITAMIN 43 Medical D-3 ORAL) Branch alcaftadine 2020- Yes Place in [facility] (LASTACAFT) 0-23 each eye. ity of 0.25 % Drop 17:03: [place] [address] [facility] CYCLOSPORIN 2019- Yes Place in [facility] E (RESTASIS 0-23 each eye. ity of OPHTHALMIC) 17:03: [place] [address] [facility] DOCOSAHEXAN 2019-09 Yes Take by [facility] 0-23 mouth. ity of ACID/EPA 17:03: [place] (FISH OIL 43 Medical ORAL) Branch vitamin E 2019-09 Yes 1000U Take 1,000 [facility] 1,000 unit 0-23 Units by ity o f capsule 17:03: mouth [place] 43 daily. [facility] Magnesium 2019- Yes Take by [facility] 250 mg Tab 0-23 mouth. ity of 17:03: [place] [address] [facility] vitamin B-6 2019-09 Yes 100mg Take 100 [facility] (VITAMIN 0-23 mg by ity of B-6) 100 mg 17:03: mouth [place] tablet 43 daily. [facility] CALCIUM 2019- Yes Take by [facility] CARBONATE/V 0-23 mouth. ity of ITAMIN D3 17:03: [place] (VITAMIN 43 Medical D-3 ORAL) Branch alcaftadine 2019-[address] in [facility] (LASTACAFT) 0-23 each eye. ity of 0.25 % Drop 17:03: [place] [address] [facility] CYCLOSPORIN 2019-[address] in [facility] E (RESTASIS 0-23 each eye. ity of OPHTHALMIC) 17:03: [place] [address] [facility] DOCOSAHEXAN 2019- Yes Take by [facility] 0-23 mouth. ity of ACID/EPA 17:03: [place] (FISH OIL 43 Medical ORAL) Branch vitamin E 2019- Yes 1000U Take 1,000 [facility] 1,000 unit 0-23 Units by ity o f capsule 17:03: mouth [place] 43 daily. [facility] Magnesium 2019- Yes Take by [facility] 250 mg Tab 0-23 mouth. ity of 17:03: [place] [address] [facility] vitamin B-6 2019- Yes 100mg Take 100 [facility] (VITAMIN 0-23 mg by ity of B-6) 100 mg 17:03: mouth [place] tablet 43 daily. [facility] CALCIUM 2020- Yes Take by [facility] CARBONATE/V 0-23 mouth. ity of ITAMIN D3 17:03: [place] (VITAMIN 43 Medical D-3 ORAL) Branch alcaftadine 2020- Yes Place in [facility] (LASTACAFT) 0-23 each eye. ity of 0.25 % Drop 17:03: [place] [address] [facility] CYCLOSPORIN 2019- Yes Place in [facility] E (RESTASIS 0-23 each eye. ity of OPHTHALMIC) 17:03: [place] [address] [facility] DOCOSAHEXAN 2019- Yes Take by [facility] 0-23 mouth. ity of ACID/EPA 17:03: [place] (FISH OIL 43 Medical ORAL) Branch vitamin E 2019- Yes 1000U Take 1,000 [facility] 1,000 unit 0-23 Units by ity o f capsule 17:03: mouth [place] 43 daily. [facility] Magnesium 2019- Yes Take by [facility] 250 mg Tab 0-23 mouth. ity of 17:03: [place] [address] [facility] vitamin B-6 2019- Yes 100mg Take 100 [facility] (VITAMIN 0-23 mg by ity of B-6) 100 mg 17:03: mouth [place] tablet 43 daily. [facility] CALCIUM 2019- Yes Take by [facility] CARBONATE/V 0-23 mouth. ity of ITAMIN D3 17:03: [place] (VITAMIN 43 Medical D-3 ORAL) Branch alcaftadine 2019-[address] in [facility] (LASTACAFT) 0-23 each eye. ity of 0.25 % Drop 17:03: [place] [address] [facility] CYCLOSPORIN 2019- Yes Place in [facility] E (RESTASIS 0-23 each eye. ity of OPHTHALMIC) 17:03: [place] [address] [facility] DOCOSAHEXAN 2019- Yes Take by [facility] 0-23 mouth. ity of ACID/EPA 17:03: [place] (FISH OIL 43 Medical ORAL) Branch vitamin E 2019- Yes 1000U Take 1,000 [facility] 1,000 unit 0-23 Units by ity o f capsule 17:03: mouth [place] 43 daily. [facility] Magnesium 2020- Yes Take by [facility] 250 mg Tab 0-23 mouth. ity of 17:03: [place] [address] [facility] vitamin B-6 2020- Yes 100mg Take 100 [facility] (VITAMIN 0-23 mg by ity of B-6) 100 mg 17:03: mouth [place] tablet 43 daily. [facility] CALCIUM 2019- Yes Take by [facility] CARBONATE/V 0-23 mouth. ity of ITAMIN D3 17:03: [place] (VITAMIN 43 Medical D-3 ORAL) Branch alcaftadine 2019- Yes Place in [facility] (LASTACAFT) 0-23 each eye. ity of 0.25 % Drop 17:03: [place] [address] [facility] CYCLOSPORIN 2019- Yes Place in [facility] E (RESTASIS 0-23 each eye. ity of OPHTHALMIC) 17:03: [place] [address] [facility] DOCOSAHEXAN 2019- Yes Take by [facility] 0-23 mouth. ity of ACID/EPA 17:03: [place] (FISH OIL 43 Medical ORAL) Branch vitamin E 2019-09 Yes 1000U Take 1,000 [facility] 1,000 unit 0-23 Units by ity o f capsule 17:03: mouth [place] 43 daily. [facility] Magnesium 2019- Yes Take by [facility] 250 mg Tab 0-23 mouth. ity of 17:03: [place] [address] [facility] Branch vitamin B-6 2019- Yes 100mg Take 100 [facility]ivers (VITAMIN 0-23 mg by ity of B-6) 100 mg 17:03: mouth [place] tablet 43 daily. Medical Branch CALCIUM 2019- Yes Take by Univer s CARBONATE/V 0-23 mouth. ity of ITAMIN D3 17:03: [place] (VITAMIN 43 Medical D-3 ORAL) Branch alcaftadine 2019-[address] in [facility]ivers (LASTACAFT) 0-23 each eye. ity of 0.25 % Drop 17:03: [place] [address] [facility] Branch CYCLOSPORIN 2019- Yes Place in U [facility]ivers E (RESTASIS 0-23 each eye. ity of OPHTHALMIC) 17:03: [place] [address] [facility] Branch DOCOSAHEXAN 2019- Yes Take by [facility] [place] OIC 0-23 mouth. ity of ACID/EPA 17:03: [place] (FISH OIL 43 Medical ORAL) Branch vitamin E 2019- Yes 1000U Take 1,000 U nivers 1,000 unit 0-23 Units by ity o f capsule 17:03: mouth [place] 43 daily. Medical Branch Magnesium 2020-1 Yes Take by Univ ers 250 mg Tab 0-23 mouth. ity of 17:03: [place] [address] [facility] vitamin B-6 2019- Yes 100mg Take 100 [facility] (VITAMIN 0-23 mg by ity of B-6) 100 mg 17:03: mouth [place] tablet 43 daily. Medical Branch CALCIUM 2019- Yes Take by Univer s CARBONATE/V 0-23 mouth. ity of ITAMIN D3 17:03: [place] (VITAMIN 43 Medical D-3 ORAL) Branch alcaftadine 2019-[address] in [facility] (LASTACAFT) 0-23 each eye. ity of 0.25 % Drop 17:03: [place] [address] [facility] Branch CYCLOSPORIN 2019-[address] in [facility] E (RESTASIS 0-23 each eye. ity of OPHTHALMIC) 17:03: [place] [address] [facility] Branch DOCOSAHEXAN 2019-09 Yes Take by [facility] [place] OIC 0-23 mouth. ity of ACID/EPA 17:03: [place] (FISH OIL 43 Medical ORAL) Branch vitamin E 2019-09 Yes 1000U Take 1,000 U [facility]ivers 1,000 unit 0-23 Units by ity o f capsule 17:03: mouth [place] 43 daily. Medical Branch Magnesium 2019- Yes Take by Univ ers 250 mg Tab 0-23 mouth. ity of 17:03: [place] [address] [facility] Branch vitamin B-6 2019-09 Yes 100mg Take 100 [facility] (VITAMIN 0-23 mg by ity of B-6) 100 mg 17:03: mouth [place] tablet 43 daily. Medical Branch CALCIUM 2019- Yes Take by Univer s CARBONATE/V 0-23 mouth. ity of ITAMIN D3 17:03: [place] (VITAMIN 43 Medical D-3 ORAL) Branch alcaftadine 2019-[address] in [facility]ivers (LASTACAFT) 0-23 each eye. ity of 0.25 % Drop 17:03: [place] [address] [facility] Branch CYCLOSPORIN 2019-[address] in [facility] E (RESTASIS 0-23 each eye. ity of OPHTHALMIC) 17:03: [place] [address] [facility] Branch DOCOSAHEXAN 2019- Yes Take by [facility] [place] OIC 0-23 mouth. ity of ACID/EPA 17:03: [place] (FISH OIL 43 Medical ORAL) Branch vitamin E 2019- Yes 1000U Take 1,000 U nivers 1,000 unit 0-23 Units by ity o f capsule 17:03: mouth [place] 43 daily. Medical Branch Magnesium 2020- Yes Take by Univ ers 250 mg Tab 0-23 mouth. ity of 17:03: [place] [address] [facility] Branch vitamin B-6 2019-09 Yes 100mg Take 100 [facility] (VITAMIN 0-23 mg by ity of B-6) 100 mg 17:03: mouth [place] tablet 43 daily. Medical Branch CALCIUM 2019-09 Yes Take by Univer s CARBONATE/V 0-23 mouth. ity of ITAMIN D3 17:03: [place] (VITAMIN 43 Medical D-3 ORAL) Branch alcaftadine 2019-[address] in [facility]ivers (LASTACAFT) 0-23 each eye. ity of 0.25 % Drop 17:03: [place] [address] [facility] Branch CYCLOSPORIN 2019-[address] in [facility] E (RESTASIS 0-23 each eye. ity of OPHTHALMIC) 17:03: [place] [address] [facility] Branch DOCOSAHEXAN 2019-09 Yes Take by [facility] [place] OIC 0-23 mouth. ity of ACID/EPA 17:03: [place] (FISH OIL 43 Medical ORAL) Branch vitamin E 2019-09 Yes 1000U Take 1,000 U [facility]ivers 1,000 unit 0-23 Units by ity o f capsule 17:03: mouth [place] 43 daily. Medical Branch Magnesium 2019- Yes Take by Univ ers 250 mg Tab 0-23 mouth. ity of 17:03: [place] [address] [facility] Branch vitamin B-6 2019-09 Yes 100mg Take 100 [facility] (VITAMIN 0-23 mg by ity of B-6) 100 mg 17:03: mouth [place] tablet 43 daily. Medical Branch CALCIUM 2019-09 Yes Take by Univer s CARBONATE/V 0-23 mouth. ity of ITAMIN D3 17:03: [place] (VITAMIN 43 Medical D-3 ORAL) Branch alcaftadine 2019-[address] in [facility]ivers (LASTACAFT) 0-23 each eye. ity of 0.25 % Drop 17:03: [place] [address] [facility] Branch CYCLOSPORIN 2019-[address] in [facility] E (RESTASIS 0-23 each eye. ity of OPHTHALMIC) 17:03: [place] [address] [facility] Branch DOCOSAHEXAN 2019-09 Yes Take by [facility] [place] OIC 0-23 mouth. ity of ACID/EPA 17:03: [place] (FISH OIL 43 Medical ORAL) Branch vitamin E 2019- Yes 1000U Take 1,000 U nivers 1,000 unit 0-23 Units by ity o f capsule 17:03: mouth [place] 43 daily. Medical Branch Magnesium 2019- Yes Take by Univ ers 250 mg Tab 0-23 mouth. ity of 17:03: [place] [address] [facility] Branch vitamin B-6 2019-09 Yes 100mg Take 100 [facility] (VITAMIN 0-23 mg by ity of B-6) 100 mg 17:03: mouth [place] tablet 43 daily. Medical Branch CALCIUM 2019-09 Yes Take by Univer s CARBONATE/V 0-23 mouth. ity of ITAMIN D3 17:03: [place] (VITAMIN 43 Medical D-3 ORAL) Branch alcaftadine 2019-[address] in [facility]ivers (LASTACAFT) 0-23 each eye. ity of 0.25 % Drop 17:03: [place] [address] [facility] Branch CYCLOSPORIN 2019-[address] in [facility] E (RESTASIS 0-23 each eye. ity of OPHTHALMIC) 17:03: [place] [address] [facility] Branch DOCOSAHEXAN 2019-09 Yes Take by [facility] [place] OIC 0-23 mouth. ity of ACID/EPA 17:03: [place] (FISH OIL 43 Medical ORAL) Branch vitamin E 2019-09 Yes 1000U Take 1,000 U [facility]ivers 1,000 unit 0-23 Units by ity o f capsule 17:03: mouth [place] 43 daily. Medical Branch Magnesium 2019- Yes Take by Univ ers 250 mg Tab 0-23 mouth. ity of 17:03: [place] [address] [facility] Branch vitamin B-6 2019-09 Yes 100mg Take 100 [facility] (VITAMIN 0-23 mg by ity of B-6) 100 mg 17:03: mouth [place] tablet 43 daily. Medical Branch CALCIUM 2019-09 Yes Take by Univer s CARBONATE/V 0-23 mouth. ity of ITAMIN D3 17:03: [place] (VITAMIN 43 Medical D-3 ORAL) Branch alcaftadine 2019-[address] in [facility]ivers (LASTACAFT) 0-23 each eye. ity of 0.25 % Drop 17:03: [place] [address] [facility] Branch CYCLOSPORIN 2019-[address] in [facility] E (RESTASIS 0-23 each eye. ity of OPHTHALMIC) 17:03: [place] [address] [facility] Branch DOCOSAHEXAN 2019-09 Yes Take by [facility] [place] OIC 0-23 mouth. ity of ACID/EPA 17:03: [place] (FISH OIL 43 Medical ORAL) Branch vitamin E 2019-09 Yes 1000U Take 1,000 U [facility]ivers 1,000 unit 0-23 Units by ity o f capsule 17:03: mouth [place] 43 daily. Medical Branch Magnesium 2019- Yes Take by Univ ers 250 mg Tab 0-23 mouth. ity of 17:03: [place] [address] [facility] Branch vitamin B-6 2019-09 Yes 100mg Take 100 [facility] (VITAMIN 0-23 mg by ity of B-6) 100 mg 17:03: mouth [place] tablet 43 daily. Medical Branch CALCIUM 2019-09 Yes Take by Univer s CARBONATE/V 0-23 mouth. ity of ITAMIN D3 17:03: [place] (VITAMIN 43 Medical D-3 ORAL) Branch alcaftadine 2019-[address] in [facility]ivers (LASTACAFT) 0-23 each eye. ity of 0.25 % Drop 17:03: [place] [address] [facility] Branch CYCLOSPORIN 2019-[address] in [facility] E (RESTASIS 0-23 each eye. ity of OPHTHALMIC) 17:03: [place] [address] [facility] Branch DOCOSAHEXAN 2019-09 Yes Take by [facility] [place] OIC 0-23 mouth. ity of ACID/EPA 17:03: [place] (FISH OIL 43 Medical ORAL) Branch vitamin E 2019-09 Yes 1000U Take 1,000 U [facility]ivers 1,000 unit 0-23 Units by ity o f capsule 17:03: mouth [place] 43 daily. Medical Branch Magnesium 2019- Yes Take by Univ ers 250 mg Tab 0-23 mouth. ity of 17:03: [place] [address] [facility] Branch vitamin B-6 2019-09 Yes 100mg Take 100 [facility] (VITAMIN 0-23 mg by ity of B-6) 100 mg 17:03: mouth [place] tablet 43 daily. Medical Branch CALCIUM 2019-09 Yes Take by Univer s CARBONATE/V 0-23 mouth. ity of ITAMIN D3 17:03: [place] (VITAMIN 43 Medical D-3 ORAL) Branch DOCOSAHEXAN 2019-09 Yes Take by [facility] [place] OIC 0-23 mouth. ity of ACID/EPA 17:03: [place] (FISH OIL 43 Medical ORAL) Branch DOCOSAHEXAN [...] [place] OIC 0-23 mouth. ity of ACID/EPA 12:03: [place] (FISH OIL 43 Medical ORAL) Branch metoprolol 2019- Yes [id number] 25mg Take 1 U n[facility] succinate 0-23 tablet by ity o f XL 25 mg 24 00:00: mouth [facility] [place] tablet 00 (two) Medical times Branch daily. metoprolol 2019-09 Yes [id number] 25mg Take 1 [facility] succinate 0-23 tablet by ity o f XL 25 mg 24 00:00: mouth [facility] [place] tablet 00 (two) Medical times Branch daily. LEVOTHYROXI 2019-09 Yes [id number] TAKE 1 [facility] [place] 50 mcg 0-23 TABLET BY ity o f tablet 00:00: MOUTH [place] 00 EVERY DAY Medical IN THE Branch MORNING metoprolol 2019-09 Yes [id number] 25mg Take 1 U n[facility] succinate 0-23 tablet by ity o f XL 25 mg 24 00:00: mouth 2 [place] tablet 00 (two) Medical times Branch daily. LEVOTHYROXI 2019-09 Yes [id number] TAKE 1 [facility] [place] 50 mcg 0-23 TABLET BY ity o f tablet 00:00: MOUTH [place] 00 EVERY DAY Medical IN THE Branch MORNING metoprolol 2019- Yes [id number] 25mg Take 1 U n[facility] succinate 0-23 tablet by ity o f XL 25 mg 24 00:00: mouth 2 [place] tablet 00 (two) Medical times Branch daily. LEVOTHYROXI 2019-09 Yes [id number] TAKE 1 [facility] 50 mcg 0-23 TABLET BY ity o f tablet 00:00: MOUTH [place] 00 EVERY DAY Medical IN THE Branch MORNING metoprolol 2019- Yes [id number] 25mg Take 1 U n[facility] succinate 0-23 tablet by ity o f XL 25 mg 24 00:00: mouth [facility] [place] tablet 00 (two) Medical times Branch daily. LEVOTHYROXI 2019- Yes [id number] TAKE 1 [facility] [place] 50 mcg 0-23 TABLET BY ity o f tablet 00:00: MOUTH [place] 00 EVERY DAY Medical IN THE Branch MORNING metoprolol 2019- Yes [id number] 25mg Take 1 U n[facility] succinate 0-23 tablet by ity o f XL 25 mg 24 00:00: mouth 2 [place] tablet 00 (two) Medical times Branch daily. LEVOTHYROXI 2019-1 Yes [id number] TAKE 1 [facility] [place] 50 mcg 0-23 TABLET BY ity o f tablet 00:00: MOUTH [place] 00 EVERY DAY Medical IN THE [place] MORNING metoprolol 2019- Yes [id number] 25mg Take 1 U nivers succinate 0-23 tablet by ity o f XL 25 mg 24 00:00: mouth 2 [place] tablet 00 (two) Medical times [place] daily. LEVOTHYROXI 2019-09 Yes [id number] TAKE 1 [facility] 50 mcg 0-23 TABLET BY ity o f tablet 00:00: MOUTH [place] 00 EVERY DAY Medical IN THE [place] MORNING metoprolol 2019-09 Yes [id number] 25mg Take 1 U n[facility] succinate 0-23 tablet by ity o f XL 25 mg 24 00:00: mouth 2 [place] tablet 00 (two) Medical times [place] daily. LEVOTHYROXI 2019-09 Yes [id number] TAKE 1 [facility] 50 mcg 0-23 TABLET BY ity o f tablet 00:00: MOUTH [place] 00 EVERY DAY Medical IN THE [place] MORNING metoprolol 2019-09 Yes [id number] 25mg Take 1 U n[facility] succinate 0-23 tablet by ity o f XL 25 mg 24 00:00: mouth 2 [place] tablet 00 (two) Medical times [place] daily. LEVOTHYROXI 2019-09 Yes [id number] TAKE 1 [facility] 50 mcg 0-23 TABLET BY ity o f tablet 00:00: MOUTH [place] 00 EVERY DAY Medical IN THE [place] MORNING metoprolol 2019- Yes [id number] 25mg Take 1 U n[facility] succinate 0-23 tablet by ity o f XL 25 mg 24 00:00: mouth 2 [place] tablet 00 (two) Medical times [place] daily. LEVOTHYROXI 2019- Yes [id number] TAKE 1 [facility] 50 mcg 0-23 TABLET BY ity o f tablet 00:00: MOUTH [place] 00 EVERY DAY Medical IN THE [place] MORNING metoprolol 2019- Yes [id number] 25mg Take 1 U n[facility] succinate 0-23 tablet by ity o f XL 25 mg 24 00:00: mouth 2 [place] tablet 00 (two) Medical times [place] daily. LEVOTHYROXI 2019- Yes [id number] TAKE 1 [facility] 50 mcg 0-23 TABLET BY ity o f tablet 00:00: MOUTH [place] 00 EVERY DAY Medical IN THE [place] MORNING metoprolol 2019-09 Yes [id number] 25mg Take 1 U nivers succinate 0-23 tablet by ity o f XL 25 mg 24 00:00: mouth 2 [place] tablet 00 (two) Medical times [place] daily. LEVOTHYROXI 2019-09 Yes [id number] TAKE 1 [facility] [place] 50 mcg 0-23 TABLET BY ity o f tablet 00:00: MOUTH [place] 00 EVERY DAY Medical IN THE [place] MORNING metoprolol 2019-09 Yes [id number] 25mg Take 1 U n[facility] succinate 0-23 tablet by ity o f XL 25 mg 24 00:00: mouth 2 [place] tablet 00 (two) Medical times [place] daily. LEVOTHYROXI 2019-09 Yes [id number] TAKE 1 [facility] 50 mcg 0-23 TABLET BY ity o f tablet 00:00: MOUTH [place] 00 EVERY DAY Medical IN THE [place] MORNING metoprolol 2019-09 Yes [id number] 25mg Take 1 U n[facility] succinate 0-23 tablet by ity o f XL 25 mg 24 00:00: mouth 2 [place] tablet 00 (two) Medical times [place] daily. LEVOTHYROXI 2019-09 Yes [id number] TAKE 1 [facility] 50 mcg 0-23 TABLET BY ity o f tablet 00:00: MOUTH [place] 00 EVERY DAY Medical IN THE [place] MORNING LEVOTHYROXI 2019-09 Yes [id number] TAKE 1 [facility] [place] 50 mcg 0-23 TABLET BY ity o f tablet 00:00: MOUTH [place] 00 EVERY DAY Medical IN THE [facility] LEVOTHYROXI 2019-09 Yes [id number] TAKE 1 [facility] [place] 50 mcg 0-23 TABLET BY ity o f tablet 00:00: MOUTH [place] 00 EVERY DAY Medical IN THE [place] MORNING LEVOTHYROXI 2019-09 Yes [id number] TAKE 1 [facility] [place] 50 mcg 0-23 TABLET BY ity o f tablet 00:00: MOUTH [place] 00 EVERY DAY Medical IN THE [place] MORNING LEVOTHYROXI 2019-09 Yes [id number] TAKE 1 [facility] [place] 50 mcg 0-23 TABLET BY ity o f tablet 00:00: MOUTH [place] 00 EVERY DAY Medical IN THE [place] MORNING LEVOTHYROXI 2019-09 Yes [id number] TAKE 1 [facility] [place] 50 mcg 0-23 TABLET BY ity o f tablet 00:00: MOUTH [place] 00 EVERY DAY Medical IN THE [place] MORNING LEVOTHYROXI 2019-09 Yes [id number] TAKE 1 [facility] [place] 50 mcg 0-23 TABLET BY ity o f tablet 00:00: MOUTH [place] 00 EVERY DAY Medical IN THE [facility] LEVOTHYROXI 2019-09 Yes [id number] TAKE 1 [facility] [place] 50 mcg 0-23 TABLET BY ity o f tablet 00:00: MOUTH [place] 00 EVERY DAY Medical IN THE [facility] LEVOTHYROXI 2019-09 Yes [id number] TAKE 1 [facility] [place] 50 mcg 0-23 TABLET BY ity o f tablet 00:00: MOUTH [place] 00 EVERY DAY Medical IN THE [facility] LEVOTHYROXI 2019-09 Yes [id number] TAKE 1 [facility] [place] 50 mcg 0-23 TABLET BY ity o f tablet 00:00: MOUTH [place] 00 EVERY DAY Medical IN THE [facility] LEVOTHYROXI 2019-09 Yes [id number] TAKE 1 [facility] [place] 50 mcg 0-23 TABLET BY ity o f tablet 00:00: MOUTH [place] 00 EVERY DAY Medical IN THE [facility] LEVOTHYROXI 2019-09 Yes [id number] TAKE 1 [facility] [place] 50 mcg 0-23 TABLET BY ity o f tablet 00:00: MOUTH [place] 00 EVERY DAY Medical IN THE [facility] LEVOTHYROXI 2019-09 Yes [id number] TAKE 1 [facility] [place] 50 mcg 0-23 TABLET BY ity o f tablet 00:00: MOUTH [place] 00 EVERY DAY Medical IN THE [facility] LEVOTHYROXI 2019-09 Yes [id number] TAKE 1 [facility] [place] 50 mcg 0-23 TABLET BY ity o f tablet 00:00: MOUTH [place] 00 EVERY DAY Medical IN THE [facility] LEVOTHYROXI 2019-09 Yes [id number] TAKE 1 [facility] [place] 50 mcg 0-23 TABLET BY ity o f tablet 00:00: MOUTH [place] 00 EVERY DAY Medical IN THE [facility] LEVOTHYROXI 2019-09 Yes [id number] TAKE 1 [facility] [place] 50 mcg 0-23 TABLET BY ity o f tablet 00:00: MOUTH [place] 00 EVERY DAY Medical IN THE [facility] LEVOTHYROXI 2019-09 Yes [id number] TAKE 1 [facility] [place] 50 mcg 0-23 TABLET BY ity o f tablet 00:00: MOUTH [place] 00 EVERY DAY Medical IN THE [facility] LEVOTHYROXI 2019-09 Yes [id number] TAKE 1 [facility] [place] 50 mcg 0-23 TABLET BY ity o f tablet 00:00: MOUTH [place] 00 EVERY DAY Medical IN THE [facility] LEVOTHYROXI 2019-09 Yes [id number] TAKE 1 [facility] [place] 50 mcg 0-23 TABLET BY ity o f tablet 00:00: MOUTH [place] 00 EVERY DAY Medical IN THE [facility] LEVOTHYROXI 2019-09 Yes [id number] TAKE 1 [facility] 50 mcg 0-23 TABLET BY ity o f tablet 00:00: MOUTH [place] 00 EVERY DAY Medical IN THE [facility] LEVOTHYROXI 2019-09 Yes [id number] TAKE 1 [facility] [place] 50 mcg 0-23 TABLET BY ity o f tablet 00:00: MOUTH [place] 00 EVERY DAY Medical IN THE [facility] LEVOTHYROXI 2019-09 Yes [id number] TAKE 1 [facility] [place] 50 mcg 0-23 TABLET BY ity o f tablet 00:00: MOUTH [place] 00 EVERY DAY Medical IN THE [facility] LEVOTHYROXI 2019-09 Yes [id number] TAKE 1 [facility] [place] 50 mcg 0-23 TABLET BY ity o f tablet 00:00: MOUTH [place] 00 EVERY DAY Medical IN THE [facility] LEVOTHYROXI 2019-09 Yes [id number] TAKE 1 [facility] [place] 50 mcg 0-23 TABLET BY ity o f tablet 00:00: MOUTH [place] 00 EVERY DAY Medical IN THE [facility] LEVOTHYROXI 2019-09 Yes [id number] TAKE 1 [facility] [place] 50 mcg 0-23 TABLET BY ity o f tablet 00:00: MOUTH [place] 00 EVERY DAY Medical IN THE [facility] LEVOTHYROXI 2019-09 Yes [id number] TAKE 1 [facility] [place] 50 mcg 0-23 TABLET BY ity o f tablet 00:00: MOUTH [place] 00 EVERY DAY Medical IN THE [facility] LEVOTHYROXI 2019-09 Yes [id number] TAKE 1 [facility] [place] 50 mcg 0-23 TABLET BY ity o f tablet 00:00: MOUTH [place] 00 EVERY DAY Medical IN THE [facility] LEVOTHYROXI 2019-09 Yes [id number] TAKE 1 [facility] [place] 50 mcg 0-23 TABLET BY ity o f tablet 00:00: MOUTH [place] 00 EVERY DAY Medical IN THE [facility] LEVOTHYROXI 2019-09 Yes [id number] TAKE 1 [facility] [place] 50 mcg 0-23 TABLET BY ity o f tablet 00:00: MOUTH [place] 00 EVERY DAY Medical IN THE [facility] LEVOTHYROXI 2019-09 Yes [id number] TAKE 1 [facility] [place] 50 mcg 0-23 TABLET BY ity o f tablet 00:00: MOUTH [place] 00 EVERY DAY Medical IN THE [facility] LEVOTHYROXI 2019-09 Yes [id number] TAKE 1 [facility] [place] 50 mcg 0-23 TABLET BY ity o f tablet 00:00: MOUTH [place] 00 EVERY DAY Medical IN THE [place] MORNING LEVOTHYROXI 2019-09 Yes [id number] TAKE 1 [facility] [place] 50 mcg 0-23 TABLET BY ity o f tablet 00:00: MOUTH [place] 00 EVERY DAY Medical IN THE [place] MORNING LEVOTHYROXI 2019-09- No [id number] TAKE 1 [facility] [place] 50 mcg 0-23 05-05 TABLET BY ity of tablet 00:00: 00:00 MOUTH [place] 00 :00 EVERY DAY Medical IN THE [place] MORNING metoprolol 2019-09- No [id number] 25mg Take 1 Univers succinate 0-23 12-09 tablet by ity of XL 25 mg 24 00:00: 00:00 mouth 2 [place] hr tablet 00 :00 (two) Medical times [place] daily. metoprolol 2019-09- No [id number] 25mg Take 1 [facility] succinate 0-23 12-09 tablet by ity of XL 25 mg 24 00:00: 00:00 mouth 2 [place] hr tablet 00 :00 (two) Medical [facility] daily. metoprolol 2019-09- No [id number] 25mg Take 1 Univers succinate 0-23 12-09 tablet by ity of XL 25 mg 24 00:00: 00:00 mouth 2 [place] hr tablet 00 :00 (two) Medical [facility] daily. ASCORBATE 2019-09 2020- No Take by Uni vers CALCIUM 0-05 10-05 mouth. ity of (VITAMIN C 20:39: 00:00 [place] ORAL) 59 :00 [facility] Branch ASCORBATE 2019-09 2020- No Take by Uni vers CALCIUM 0-05 10-05 mouth. ity of (VITAMIN C 20:39: 00:00 [place] ORAL) 59 :00 Medical Branch CYCLOSPORIN 2019-[address] in U nivers E (RESTASIS 0-05 each eye. ity of OPHTHALMIC) 20:35: [place] 33 Medical Branch DOCOSAHEXAN 2019-09 Yes Take by Un [place] OIC 0-05 mouth. ity of ACID/EPA 20:35: [place] (FISH OIL 33 Medical ORAL) Branch vitamin E 2019-09 Yes 1000U Take 1,000 U nivers 1,000 unit 0-05 Units by ity o f capsule 20:35: mouth [place] 33 daily. Medical Branch Magnesium 2019-09 Yes [...] OIC 0-05 mouth. ity of ACID/EPA 20:35: [place] (FISH OIL 33 Medical ORAL) Branch vitamin [...] OIC 0-05 mouth. ity of ACID/EPA 20:35: [place] (FISH OIL 33 Medical ORAL) Branch vitamin [...] OIC 0-05 mouth. ity of ACID/EPA 20:35: [place] (FISH OIL 33 Medical ORAL) Branch vitamin [...] of OPHTHALMIC) 20:35: 33 Medical Branch DOCOSAHEXAN 2019-09 Yes Take by [...] OIC 0-05 mouth. ity of ACID/EPA 20:35: [place] (FISH OIL 33 Medical ORAL) Branch vitamin [...] 33 daily. Medical Branch metoprolol 2019-09 Yes [id number] 25mg Take 1 U nivers succinate 0-05 tablet by ity o f XL 25 mg 24 00:00: mouth [place] hr tablet 00 every day Medic al at 1200 Branch (noon). metformin 2019- Yes [id number] 750mg Take 1 U nivers ER 750 mg 0-05 tablet by ity o f 24 hr 00:00: mouth 2 [place] tablet 00 (two) Medical times Branch daily with meals. DOSE INCREASE. metoprolol 2019-09 Yes [id number] 25mg Take 1 U nivers succinate 0-05 tablet by ity o f XL 25 mg 24 00:00: mouth [place] hr tablet 00 every day Medic al at 1200 Branch (noon). metformin 2020- Yes [id number] 750mg Take 1 U nivers ER 750 mg 0-05 tablet by ity o f 24 hr 00:00: mouth 2 [place] tablet 00 (two) Medical times Branch daily with meals. DOSE INCREASE. metoprolol 2019- Yes [id number] 25mg Take 1 U nivers succinate 0-05 tablet by ity o f XL 25 mg 24 00:00: mouth [place] hr tablet 00 every day Medic al at 1200 Branch (noon). metformin 2019- Yes [id number] 750mg Take 1 U nivers ER 750 mg 0-05 tablet by ity o f 24 hr 00:00: mouth 2 [place] tablet 00 (two) Medical times Branch daily with meals. DOSE INCREASE. metoprolol 2019- Yes [id number] 25mg Take 1 U nivers succinate 0-05 tablet by ity o f XL 25 mg 24 00:00: mouth [place] hr tablet 00 every day Medic al at 1200 Branch (noon). metformin 2019- Yes [id number] 750mg Take 1 U nivers ER 750 mg 0-05 tablet by ity o f 24 hr 00:00: mouth 2 [place] tablet 00 (two) Medical times Branch daily with meals. DOSE INCREASE. metoprolol 2019- Yes [id number] 25mg Take 1 U nivers succinate 0-05 tablet by ity o f XL 25 mg 24 00:00: mouth [place] hr tablet 00 every day Medic al at 1200 Branch (noon). metformin 2019- Yes [id number] 750mg Take 1 U nivers ER 750 mg 0-05 tablet by ity o f 24 hr 00:00: mouth 2 [place] tablet 00 (two) Medical times Branch daily with meals. DOSE INCREASE. metoprolol 2019- Yes [id number] 25mg Take 1 U nivers succinate 0-05 tablet by ity o f XL 25 mg 24 00:00: mouth [place] hr tablet 00 every day Medic al at 1200 Branch (noon). metformin 2019- Yes [id number] 750mg Take 1 U nivers ER 750 mg 0-05 tablet by ity o f 24 hr 00:00: mouth 2 [place] tablet 00 (two) Medical times Branch daily with meals. DOSE INCREASE. metoprolol 2019- Yes [id number] 25mg Take 1 U nivers succinate 0-05 tablet by ity o f XL 25 mg 24 00:00: mouth [place] hr tablet 00 every day Medic al at 1200 Branch (noon). metformin 2019- Yes [id number] 750mg Take 1 U nivers ER 750 mg 0-05 tablet by ity o f 24 hr 00:00: mouth 2 [place] tablet 00 (two) Medical times Branch daily with meals. DOSE INCREASE. metoprolol 2019- Yes [id number] 25mg Take 1 U nivers succinate 0-05 tablet by ity o f XL 25 mg 24 00:00: mouth [place] hr tablet 00 every day Medic al at 1200 Branch (noon). metformin 2019-09 Yes [id number] 750mg Take 1 U nivers ER 750 mg 0-05 tablet by ity o f 24 hr 00:00: mouth 2 [place] tablet 00 (two) Medical times Branch daily with meals. DOSE INCREASE. metformin 2019-09 Yes [id number] 750mg Take 1 U nivers ER 750 mg 0-05 tablet by ity o f 24 hr 00:00: mouth 2 [place] tablet 00 (two) Medical times Branch daily with meals. DOSE INCREASE. metformin 2019-09 Yes [id number] 750mg Take 1 U nivers ER 750 mg 0-05 tablet by ity o f 24 hr 00:00: mouth 2 [place] tablet 00 (two) Medical times Branch daily with meals. DOSE INCREASE. metformin 2019- Yes [id number] 750mg Take 1 U nivers ER 750 mg 0-05 tablet by ity o f 24 hr 00:00: mouth 2 [place] tablet 00 (two) Medical times Branch daily with meals. DOSE INCREASE. metformin 2019-09 Yes [id number] 750mg Take 1 U nivers ER 750 mg 0-05 tablet by ity o f 24 hr 00:00: mouth 2 [place] tablet 00 (two) Medical times Branch daily with meals. DOSE INCREASE. metformin 2019-09 Yes [id number] 750mg Take 1 U nivers ER 750 mg 0-05 tablet by ity o f 24 hr 00:00: mouth 2 [place] tablet 00 (two) Medical times Branch daily with meals. DOSE INCREASE. metformin 2019- Yes [id number] 750mg Take 1 U nivers ER 750 mg 0-05 tablet by ity o f 24 hr 00:00: mouth 2 [place] tablet 00 (two) Medical times Branch daily with meals. DOSE INCREASE. metformin 2019- Yes [id number] 750mg Take 1 U nivers ER 750 mg 0-05 tablet by ity o f 24 hr 00:00: mouth 2 [place] tablet 00 (two) Medical times Branch daily with meals. DOSE INCREASE. metformin 2019-09 Yes [id number] 750mg Take 1 U nivers ER 750 mg 0-05 tablet by ity o f 24 hr 00:00: mouth 2 [place] tablet 00 (two) Medical times Branch daily with meals. DOSE INCREASE. metformin 2019-09 Yes [id number] 750mg Take 1 U nivers ER 750 mg 0-05 tablet by ity o f 24 hr 00:00: mouth 2 [place] tablet 00 (two) Medical times Branch daily with meals. DOSE INCREASE. metformin 2019-09 Yes [id number] 750mg Take 1 U nivers ER 750 mg 0-05 tablet by ity o f 24 hr 00:00: mouth 2 [place] tablet 00 (two) Medical times Branch daily with meals. DOSE INCREASE. metformin 2019-09 2020- No [id number] 750mg Take 1 [facility] ER 750 mg 0-05 11-28 tablet by ity of 24 hr 00:00: 00:00 mouth 2 [place] tablet 00 :00 (two) Medical times [place] daily with meals. DOSE INCREASE. metoprolol 2019-09 2020- No [id number] 25mg Take 1 [facility] succinate 0-05 10-23 tablet by [facility] of XL 25 mg 24 00:00: [place] 00 :00 every day Medic al at 1200 Branch (noon). metoprolol 2019-09 2020- No [id number] 25mg Take 1 [facility] succinate 0-05 10-23 tablet by ity of XL 25 mg 24 00:00: 00:[place] 00 :00 every day Medic al at 1200 Branch (noon). alcaftadine 2020-[address] in [facility] (LASTACAFT) 06-09 each eye. ity of 0.25 % Drop 19:20: [address] Branch CYCLOSPORIN 2020-[address] in [facility] E (RESTASIS 06-09 each eye. ity of OPHTHALMIC) 19:20: [place] [address] Medical Branch ASCORBATE 2020-0 Yes Take by [facility] ers CALCIUM 06-09 mouth. ity of (VITAMIN C 19:20: [place] ORAL) Medical Branch DOCOSAHEXAN 2020-0 Yes Take by [facility] [facility] 06-09 mouth. ity of ACID/EPA 19:20: [place] (FISH OIL 49 Medical ORAL) Branch vitamin E 2020-0 Yes 1000U Take 1,000 U nivers 1,000 unit 9-23 Units by ity o f capsule 19:20: mouth [place] 49 daily. Medical Branch Magnesium 2020-0 Yes Take by [facility] ers 250 mg Tab 06-09 mouth. ity of 19:20: [place] [address] Medical Branch vitamin B-6 2020-0 Yes 100mg Take 100 U nivers (VITAMIN 9-23 mg by ity of B-6) 100 mg 19:20: mouth [place] tablet 49 daily. Medical Branch CALCIUM 2020-0 Yes Take by [facility] CARBONATE/V 06-09 mouth. ity of ITAMIN D3 19:20: [place] (VITAMIN 49 Medical D-3 ORAL) Branch alcaftadine 2020-[address] in [facility] nivers (LASTACAFT) 9 each eye. ity of 0.25 % Drop 19:20: [place] [address] Medical Branch CYCLOSPORIN 2020-[address] in [facility] E (RESTASIS 9 each eye. ity of OPHTHALMIC) 19:20: [place] [address] Medical Branch ASCORBATE 2020-0 Yes Take by [facility] ers CALCIUM - mouth. ity of (VITAMIN C 19:20: [place] ORAL) 49 Medical Branch DOCOSAHEXAN 2020-0 Yes Take by Un [place] [facility] 06-09 mouth. ity of ACID/EPA 19:20: [place] (FISH OIL 49 Medical ORAL) Branch vitamin E 2020-0 Yes 1000U Take 1,000 U nivers 1,000 unit 9-23 Units by ity o f capsule 19:20: mouth [place] 49 daily. Medical Branch Magnesium 2020-0 Yes Take by Univ ers 250 mg Tab 06-09 mouth. ity of 19:20: [place] [address] Medical Branch vitamin B-6 2020-0 Yes 100mg Take 100 U nivers (VITAMIN 9-23 mg by ity of B-6) 100 mg 19:20: mouth [place] tablet 49 daily. Medical Branch CALCIUM 2020-0 Yes Take by Un[facility] s CARBONATE/V 06-09 mouth. ity of ITAMIN D3 19:20: [place] (VITAMIN 49 Medical D-3 ORAL) Branch alcaftadine 2020-[address] in [facility] nivers (LASTACAFT) 9-23 each eye. ity of 0.25 % Drop 19:20: [place] [address] Medical Branch CYCLOSPORIN 2020-[address] in [facility] E (RESTASIS 9-23 each eye. ity of OPHTHALMIC) 19:20: [place] [address] Medical Branch ASCORBATE 2020-0 Yes Take by Univ ers CALCIUM - mouth. ity of (VITAMIN C 19:20: [place] ORAL) 49 Medical Branch DOCOSAHEXAN 2020-0 Yes Take by Un [place] [facility] 06-09 mouth. ity of ACID/EPA 19:20: [place] (FISH OIL 49 Medical ORAL) Branch vitamin E 2020-0 Yes 1000U Take 1,000 U nivers 1,000 unit 9-23 Units by ity o f capsule 19:20: mouth [place] 49 daily. Medical Branch Magnesium 2020-0 Yes Take by Univ ers 250 mg Tab 06-09 mouth. ity of 19:20: [place] [address] Medical Branch vitamin B-6 2020-0 Yes 100mg Take 100 U nivers (VITAMIN 9-23 mg by ity of B-6) 100 mg 19:20: mouth [place] tablet 49 daily. Medical Branch CALCIUM 2020-0 [facility] 06-09 mouth. ity of ITAMIN D3 19:20: [place] (VITAMIN 49 Medical D-3 ORAL) Branch alcaftadine 2020-[address] in [facility] nivers (LASTACAFT) 06-09 each eye. ity of 0.25 % Drop 19:20: [place] [address] Medical Branch CYCLOSPORIN 2020-[address] in [facility] nivers E (RESTASIS 06-09 each eye. ity of OPHTHALMIC) 19:20: [place] [address] Medical Branch ASCORBATE 2020-0 Yes Take by [facility] ers CALCIUM - mouth. ity of (VITAMIN C 19:20: [place] ORAL) 49 Medical Branch DOCOSAHEXAN 2020-0 Yes Take by Un [place] [facility] 06-09 mouth. ity of ACID/EPA 19:20: [place] (FISH OIL 49 Medical ORAL) Branch vitamin E 2020-0 Yes 1000U Take 1,000 U nivers 1,000 unit 9-23 Units by ity o f capsule 19:20: mouth [place] 49 daily. Medical Branch Magnesium 2020-0 Yes Take by Univ ers 250 mg Tab 06-09 mouth. ity of 19:20: [place] [address] Medical Branch vitamin B-6 2020-0 Yes 100mg Take 100 U nivers (VITAMIN 9-23 mg by ity of B-6) 100 mg 19:20: mouth [place] tablet 49 daily. Medical Branch CALCIUM 2020-0 Yes Take by Univer s CARBONATE/V 06-09 mouth. ity of ITAMIN D3 19:20: [place] (VITAMIN 49 Medical D-3 ORAL) Branch alcaftadine 2020-[address] in [facility] nivers (LASTACAFT) 9 each eye. ity of 0.25 % Drop 19:20: [place] [address] Medical Branch CYCLOSPORIN 2020-[address] in [facility]ivers E (RESTASIS 06-09 each eye. ity of OPHTHALMIC) 19:20: [place] [address] Medical Branch ASCORBATE 2020-0 Yes Take by Univ ers CALCIUM 06-09 mouth. ity of (VITAMIN C 19:20: [place] ORAL) 49 Medical Branch DOCOSAHEXAN 2020-0 Yes Take by Un [place] [facility] 06-09 mouth. ity of ACID/EPA 19:20: [place] (FISH OIL 49 Medical ORAL) Branch vitamin E 2020-0 Yes 1000U Take 1,000 U nivers 1,000 unit -23 Units by ity o f capsule 19:20: mouth [place] 49 daily. Medical Branch Magnesium 2020-0 Yes Take by [facility] ers 250 mg Tab 06-09 mouth. ity of 19:20: [place] [address] Medical Branch vitamin B-6 2020-0 Yes 100mg Take 100 U nivers (VITAMIN - mg by ity of B-6) 100 mg 19:20: mouth [place] tablet 49 daily. Medical Branch CALCIUM 2020-0 Yes [facility] CAR[facility]/V 06-09 mouth. ity of ITAMIN D3 19:20: [place] (VITAMIN 49 Medical D-3 ORAL) Branch alcaftadine 2020-[address] in [facility] nivers (LASTACAFT) 9 each eye. ity of 0.25 % Drop 19:20: [place] [address] Medical Branch CYCLOSPORIN 2020-[address] in [facility] nivers E (RESTASIS 06-09 each eye. ity of OPHTHALMIC) 19:20: [place] [address] Medical Branch ASCORBATE 2020-0 Yes Take by Univ ers CALCIUM 06-09 mouth. ity of (VITAMIN C 19:20: [place] ORAL) 49 Medical Branch DOCOSAHEXAN 2020-0 Yes Take by Un [place] [facility] 06-09 mouth. ity of ACID/EPA 19:20: [place] (FISH OIL 49 Medical ORAL) Branch vitamin E 2020-0 Yes 1000U Take 1,000 U nivers 1,000 unit -23 Units by ity o f capsule 19:20: mouth [place] 49 daily. Medical Branch Magnesium 2020-0 Yes Take by Univ ers 250 mg Tab 06-09 mouth. ity of 19:20: [place] 49 Medical Branch vitamin B-6 2020-0 Yes 100mg Take 100 U nivers (VITAMIN 9- mg by ity of B-6) 100 mg 19:20: mouth [place] tablet 49 daily. Medical Branch CALCIUM 2020-0 Yes Take by Univer s CARBONATE/V 06-09 mouth. ity of ITAMIN D3 19:20: [place] (VITAMIN 49 Medical D-3 ORAL) Branch alcaftadine 2020-[address] in [facility] nivers (LASTACAFT) 06-09 each eye. ity of 0.25 % Drop 19:20: [place] 49 Medical Branch CALCIUM 2020-0 Yes Take by Univer s CARBONATE/V 06-09 mouth. ity of ITAMIN D3 19:20: [place] (VITAMIN 49 Medical D-3 ORAL) Branch alcaftadine 2020-[address] in [facility] nivers (LASTACAFT) 06-09 each eye. ity of 0.25 % Drop 19:20: [place] 49 Medical Branch CALCIUM 2020-0 Yes Take by Univer s CARBONATE/V 06-09 mouth. ity of ITAMIN D3 19:20: [place] (VITAMIN 49 Medical D-3 ORAL) Branch alcaftadine 2020-[address] in [facility] nivers (LASTACAFT) 06-09 each eye. ity of 0.25 % Drop 19:20: [place] 49 Medical Branch CALCIUM 2020-0 Yes Take by Univer s CARBONATE/V 06-09 mouth. ity of ITAMIN D3 19:20: [place] (VITAMIN 49 Medical D-3 ORAL) Branch alcaftadine 2020-[address] in U nivers (LASTACAFT) 06-09 each eye. ity of 0.25 % Drop 19:20: [place] 49 Medical Branch CALCIUM 2020-0 Yes Take by Univer s CARBONATE/V 06-09 mouth. ity of ITAMIN D3 19:20: [place] (VITAMIN 49 Medical D-3 ORAL) Branch alcaftadine 2020-[address] in U nivers (LASTACAFT) 06-09 each eye. ity of 0.25 % Drop 19:20: [place] 49 Medical Branch CALCIUM 2020-0 Yes Take by Univer s CARBONATE/V 06-09 mouth. ity of ITAMIN D3 19:20: [place] (VITAMIN 49 Medical D-3 ORAL) Branch alcaftadine 2020-[address] in U nivers (LASTACAFT) 9 each eye. ity of 0.25 % Drop 19:20: [place] [address] Medical Branch CALCIUM 2020-0 Yes Take by Univer s CARBONATE/V 06-09 mouth. ity of ITAMIN D3 19:20: [place] (VITAMIN 49 Medical D-3 ORAL) Branch alcaftadine 2020-[address] in [facility]ivers (LASTACAFT) 9 each eye. ity of 0.25 % Drop 19:20: [place] [address] Medical Branch CALCIUM 2020-0 Yes Take by Univer s CARBONATE/V 06-09 mouth. ity of ITAMIN D3 19:20: [place] (VITAMIN 49 Medical D-3 ORAL) Branch alcaftadine 2020-[address] in U nivers (LASTACAFT) 06-09 each eye. ity of 0.25 % Drop 19:20: [place] [address] Medical Branch CALCIUM 2020-0 Yes Take by Univer s CARBONATE/V 06-09 mouth. ity of ITAMIN D3 19:20: [place] (VITAMIN 49 Medical D-3 ORAL) Branch metoprolol 2020-0 Yes [id number] 25mg Take 1 U nivers succinate 9-23 tablet by ity o f XL 25 mg 24 00:00: mouth [place] tablet 00 bedtime. Medica l Branch metoprolol 2020-0 Yes [id number] 25mg Take 1 U nivers succinate 9-23 tablet by ity o f XL 25 mg 24 00:00: mouth [place] tablet 00 bedtime. Medica l Branch metoprolol 2020-0 Yes [id number] 25mg Take 1 U nivers succinate 9-23 tablet by ity o f XL 25 mg 24 00:00: mouth [place] tablet 00 bedtime. Medica l Branch metoprolol 2020-0 Yes [id number] 25mg Take 1 U nivers succinate 9-23 tablet by ity o f XL 25 mg 24 00:00: mouth [place] tablet 00 bedtime. Medica l Branch metoprolol 2020-0 Yes [id number] 25mg Take 1 U nivers succinate 9-23 tablet by ity o f XL 25 mg 24 00:00: mouth [place] tablet 00 bedtime. Medica l Branch metoprolol 2020-0 Yes [id number] 25mg Take 1 U nivers succinate 9-23 tablet by ity o f XL 25 mg 24 00:00: mouth [place] tablet 00 bedtime. Medica l Branch metoprolol 2020-0 Yes [id number] 25mg Take 1 U nivers succinate 9-23 tablet by ity o f XL 25 mg 24 00:00: mouth [place] tablet 00 bedtime. Medica l Branch metoprolol 2020-0 2020- No [id number] 25mg Take 1 [facility] succinate 9-23 10-05 tablet by ity of XL 25 mg 24 00:00: 00:00 mouth [place] tablet 00 :00 bedtime. Medica l Branch metoprolol 2020-0 2020- No [id number] 25mg Take 1 [facility] succinate 9-23 10-05 tablet by ity of XL 25 mg 24 00:00: 00:00 mouth [place] hr tablet 00 :00 bedtime. Medica l Branch LOSARTAN 25 2019-0 Yes [id number] TAKE 1 [facility] mg tablet 9-22 TABLET BY ity o f 00:00: MOUTH [place] 00 EVERY DAY Medical Branch LOSARTAN 25 2020-0 2020- No [id number] TAKE 1 [facility] mg tablet 9-22 09-23 TABLET BY ity of 00:00: 00:00 MOUTH [place] 00 :00 EVERY DAY Medical Branch losartan 25 2020-0 Yes [id number] 25mg Take 1 [facility] mg tablet 9-21 tablet by ity o f 00:00: mouth [place] 00 daily. Medical Branch traZODone 2020-0 Yes [id number] 100mg Take 1 [facility] 100 mg 9-21 tablet by ity of tablet 00:00: mouth at [place] 00 bedtime as Medical needed for Branch Insomnia. losartan 25 2019-0 Yes [id number] 25mg Take 1 [facility] mg tablet 9-21 tablet by ity o f 00:00: mouth [place] 00 daily. Medical Branch traZODone 2020-0 Yes [id number] 100mg Take 1 [facility] 100 mg 9-21 tablet by ity of tablet 00:00: mouth at [place] 00 bedtime as Medical needed for Branch Insomnia. traZODone 2020-0 Yes [id number] 100mg Take 1 [facility] 100 mg 9-21 tablet by ity of tablet 00:00: mouth at [place] 00 bedtime as Medical needed for Branch Insomnia. traZODone 2020-0 Yes [id number] 100mg Take 1 [facility] 100 mg 9-21 tablet by ity of tablet 00:00: mouth at [place] 00 bedtime as Medical needed for Branch Insomnia. traZODone 2020-0 Yes [id number] 100mg Take 1 [facility] 100 mg 9-21 tablet by ity of tablet 00:00: mouth at [place] 00 bedtime as Medical needed for Branch Insomnia. traZODone 2020-0 Yes [id number] 100mg Take 1 [facility] 100 mg 9-21 tablet by ity of tablet 00:00: mouth at [place] 00 bedtime as Medical needed for Branch Insomnia. traZODone 2020-0 Yes [id number] 100mg Take 1 [facility] 100 mg 9-21 tablet by ity of tablet 00:00: mouth at [place] 00 bedtime as Medical needed for Branch Insomnia. traZODone 2020-0 Yes [id number] 100mg Take 1 [facility] 100 mg 9-21 tablet by ity of tablet 00:00: mouth at [place] 00 bedtime as Medical needed for Branch Insomnia. traZODone 2020-0 Yes [id number] 100mg Take 1 [facility] 100 mg 9-21 tablet by ity of tablet 00:00: mouth at [place] [address] bedtime as Medical needed for Branch Insomnia. traZODone 2020-0 Yes [id number] 100mg Take 1 [facility] 100 mg 9-21 tablet by ity of tablet 00:00: mouth at [place] [address] bedtime as Medical needed for Branch Insomnia. traZODone 2020-0 Yes [id number] 100mg Take 1 [facility] 100 mg 9-21 tablet by ity of tablet 00:00: mouth at [place] 00 bedtime as Medical needed for Branch Insomnia. traZODone 2020-0 Yes [id number] 100mg Take 1 [facility] 100 mg 9-21 tablet by ity of tablet 00:00: mouth at [place] 00 bedtime as Medical needed for Branch Insomnia. traZODone 2020-0 Yes [id number] 100mg Take 1 [facility] 100 mg 9-21 tablet by ity of tablet 00:00: mouth at [place] 00 bedtime as Medical needed for Branch Insomnia. traZODone 2020-0 Yes [id number] 100mg Take 1 [facility] 100 mg 9-21 tablet by ity of tablet 00:00: mouth at [place] 00 bedtime as Medical needed for Branch Insomnia. traZODone 2020-0 Yes [id number] 100mg Take 1 [facility] 100 mg 9-21 tablet by ity of tablet 00:00: mouth at [place] 00 bedtime as Medical needed for Branch Insomnia. traZODone 2020-0 Yes [id number] 100mg Take 1 [facility] 100 mg 9-21 tablet by ity of tablet 00:00: mouth at [place] 00 bedtime as Medical needed for Branch Insomnia. traZODone 2020-0 Yes [id number] 100mg Take 1 [facility] 100 mg 9-21 tablet by ity of tablet 00:00: mouth at [place] 00 bedtime as Medical needed for Branch Insomnia. traZODone 2020-0 Yes [id number] 100mg Take 1 [facility] 100 mg 9-21 tablet by ity of tablet 00:00: mouth at [place] 00 bedtime as Medical needed for Branch Insomnia. traZODone 2020-0 Yes [id number] 100mg Take 1 [facility] 100 mg 9-21 tablet by ity of tablet 00:00: mouth at [place] 00 bedtime as Medical needed for Branch Insomnia. traZODone 2020-0 Yes [id number] 100mg Take 1 [facility] 100 mg 9-21 tablet by ity of tablet 00:00: mouth at [place] 00 bedtime as Medical needed for Branch Insomnia. traZODone 2020-0 Yes [id number] 100mg Take 1 [facility] 100 mg 9-21 tablet by ity of tablet 00:00: mouth at [place] 00 bedtime as Medical needed for Branch Insomnia. traZODone 2020-0 Yes [id number] 100mg Take 1 [facility] 100 mg 9-21 tablet by ity of tablet 00:00: mouth at [place] 00 bedtime as Medical needed for Branch Insomnia. traZODone 2020-0 Yes [id number] 100mg Take 1 [facility] 100 mg 9-21 tablet by ity of tablet 00:00: mouth at [place] 00 bedtime as Medical needed for Branch Insomnia. traZODone 2020-0 Yes [id number] 100mg Take 1 [facility] 100 mg 9-21 tablet by ity of tablet 00:00: mouth at [place] 00 bedtime as Medical needed for Branch Insomnia. traZODone 2020-0 Yes [id number] 100mg Take 1 [facility] 100 mg 9-21 tablet by ity of tablet 00:00: mouth at [place] 00 bedtime as Medical needed for Branch Insomnia. traZODone 2020-0 Yes [id number] 100mg Take 1 [facility] 100 mg 9-21 tablet by ity of tablet 00:00: mouth at [place] 00 bedtime as Medical needed for Branch Insomnia. traZODone 2020-0 Yes [id number] 100mg Take 1 [facility] 100 mg 9-21 tablet by ity of tablet 00:00: mouth at [place] 00 bedtime as Medical needed for Branch Insomnia. traZODone 2020-0 Yes [id number] 100mg Take 1 [facility] 100 mg 9-21 tablet by ity of tablet 00:00: mouth at [place] 00 bedtime as Medical needed for Branch Insomnia. traZODone 2020-0 Yes [id number] 100mg Take 1 [facility] 100 mg 9-21 tablet by ity of tablet 00:00: mouth at [place] 00 bedtime as Medical needed for Branch Insomnia. traZODone 2020-0 Yes [id number] 100mg Take 1 [facility] 100 mg 9-21 tablet by ity of tablet 00:00: mouth at [place] 00 bedtime as Medical needed for Branch Insomnia. traZODone 2020-0 Yes [id number] 100mg Take 1 [facility] 100 mg 9-21 tablet by ity of tablet 00:00: mouth at [place] 00 bedtime as Medical needed for Branch Insomnia. traZODone 2020-0 Yes [id number] 100mg Take 1 [facility] 100 mg 9-21 tablet by ity of tablet 00:00: mouth at [place] 00 bedtime as Medical needed for Branch Insomnia. traZODone 2020-0 Yes [id number] 100mg Take 1 [facility] 100 mg 9-21 tablet by ity of tablet 00:00: mouth at [place] 00 bedtime as Medical needed for Branch Insomnia. traZODone 2020-0 Yes [id number] 100mg Take 1 [facility] 100 mg 9-21 tablet by ity of tablet 00:00: mouth at [place] 00 bedtime as Medical needed for Branch Insomnia. traZODone 2020-0 Yes [id number] 100mg Take 1 [facility] 100 mg 9-21 tablet by ity of tablet 00:00: mouth at [place] 00 bedtime as Medical needed for Branch Insomnia. traZODone 2020-0 Yes [id number] 100mg Take 1 [facility] 100 mg 9-21 tablet by ity of tablet 00:00: mouth at [place] 00 bedtime as Medical needed for Branch Insomnia. traZODone 2020-0 Yes [id number] 100mg Take 1 [facility] 100 mg 9-21 tablet by ity of tablet 00:00: mouth at [place] 00 bedtime as Medical needed for Branch Insomnia. traZODone 2020-0 Yes [id number] 100mg Take 1 [facility] 100 mg 9-21 tablet by ity of tablet 00:00: mouth at [place] 00 bedtime as Medical needed for Branch Insomnia. traZODone 2020-0 Yes [id number] 100mg Take 1 [facility] 100 mg 9-21 tablet by ity of tablet 00:00: mouth at [place] 00 bedtime as Medical needed for Branch Insomnia. traZODone 2020-0 Yes [id number] 100mg Take 1 [facility] 100 mg 9-21 tablet by ity of tablet 00:00: mouth at [place] 00 bedtime as Medical needed for Branch Insomnia. traZODone 2020-0 Yes [id number] 100mg Take 1 [facility] 100 mg 9-21 tablet by ity of tablet 00:00: mouth at [place] [address] bedtime as Medical needed for Branch Insomnia. traZODone 2020-0 Yes [id number] 100mg Take 1 [facility] 100 mg 9-21 tablet by ity of tablet 00:00: mouth at [place] [address] bedtime as Medical needed for Branch Insomnia. traZODone 2020-0 Yes [id number] 100mg Take 1 [facility] 100 mg 9-21 tablet by ity of tablet 00:00: mouth at [place] 00 bedtime as Medical needed for Branch Insomnia. traZODone 2020-0 Yes [id number] 100mg Take 1 [facility] 100 mg 9-21 tablet by ity of tablet 00:00: mouth at [place] [address] bedtime as Medical needed for Branch Insomnia. traZODone 2020-0 Yes [id number] 100mg Take 1 [facility] 100 mg 9-21 tablet by ity of tablet 00:00: mouth at [place] 00 bedtime as Medical needed for Branch Insomnia. traZODone 2020-0 Yes [id number] 100mg Take 1 [facility] 100 mg 9-21 tablet by ity of tablet 00:00: mouth at [place] 00 bedtime as Medical needed for Branch Insomnia. traZODone 2020-0 Yes [id number] 100mg Take 1 [facility] 100 mg 9-21 tablet by ity of tablet 00:00: mouth at [place] [address] bedtime as Medical needed for Branch Insomnia. traZODone 2020-0 Yes [id number] 100mg Take 1 [facility] 100 mg 9-21 tablet by ity of tablet 00:00: mouth at [place] [address] bedtime as Medical needed for Branch Insomnia. traZODone 2020-0 Yes [id number] 100mg Take 1 [facility] 100 mg 9-21 tablet by ity of tablet 00:00: mouth at [place] 00 bedtime as Medical needed for Branch Insomnia. traZODone 2020-0 Yes [id number] 100mg Take 1 [facility] 100 mg 9-21 tablet by ity of tablet 00:00: mouth at [place] 00 bedtime as Medical needed for Branch Insomnia. traZODone 2020-0 Yes [id number] 100mg Take 1 [facility] 100 mg 9-21 tablet by ity of tablet 00:00: mouth at [place] 00 bedtime as Medical needed for Branch Insomnia. traZODone 2020-0 Yes [id number] 100mg Take 1 [facility] 100 mg 9-21 tablet by ity of tablet 00:00: mouth at [place] [address] bedtime as Medical needed for Branch Insomnia. traZODone 2020-0 Yes [id number] 100mg Take 1 [facility] 100 mg 9-21 tablet by ity of tablet 00:00: mouth at [place] [address] bedtime as Medical needed for Branch Insomnia. traZODone 2020-0 Yes [id number] 100mg Take 1 [facility] 100 mg 9-21 tablet by ity of tablet 00:00: mouth at [place] [address] bedtime as Medical needed for Branch Insomnia. traZODone 2020-0 Yes [id number] 100mg Take 1 [facility] 100 mg 9-21 tablet by ity of tablet 00:00: mouth at [place] [address] bedtime as Medical needed for Branch Insomnia. traZODone 2020-0 Yes [id number] 100mg Take 1 [facility] 100 mg 9-21 tablet by ity of tablet 00:00: mouth at [place] [address] bedtime as Medical needed for Branch Insomnia. traZODone 2020-0 Yes [id number] 100mg Take 1 [facility] 100 mg 9-21 tablet by ity of tablet 00:00: mouth at [place] [address] bedtime as Medical needed for Branch Insomnia. traZODone 2020-0 Yes [id number] 100mg Take 1 [facility] 100 mg 9-21 tablet by ity of tablet 00:00: mouth at [place] [address] bedtime as Medical needed for Branch Insomnia. traZODone 2020-0 Yes [id number] 100mg Take 1 [facility] 100 mg 9-21 tablet by ity of tablet 00:00: mouth at [place] 00 bedtime as Medical needed for Branch Insomnia. traZODone 2020-0 Yes [id number] 100mg Take 1 [facility] 100 mg 9-21 tablet by ity of tablet 00:00: mouth at [place] 00 bedtime as Medical needed for Branch Insomnia. traZODone 2020-0 Yes [id number] 100mg Take 1 [facility] 100 mg 9-21 tablet by ity of tablet 00:00: mouth at [place] 00 bedtime as Medical needed for Branch Insomnia. traZODone 2020-0 Yes [id number] 100mg Take 1 [facility] 100 mg 9-21 tablet by ity of tablet 00:00: mouth at [place] 00 bedtime as Medical needed for Branch Insomnia. traZODone 2020-0 Yes [id number] 100mg Take 1 [facility] 100 mg 9-21 tablet by ity of tablet 00:00: mouth at [place] 00 bedtime as Medical needed for Branch Insomnia. traZODone 2019-0 2020- No [id number] 100mg Take 1 [facility] 100 mg 9-21 -18 tablet by ity of tablet 00:00: 00:00 mouth at [place] 00 :00 bedtime as Medical needed for Branch Insomnia. losartan 25 2019-0 2020- No [id number] 25mg Take 1 [facility] mg tablet -07 06- tablet by ity of 00:00: 00:00 mouth [place] 00 :00 daily. Medical Branch NaCl 0.9% 2019-0 2020- No 1000mL at 999 Uni vers (NS) bolus 06-03- mL/hr, ity of infusion 20:30: 22:00 1,000 mL, [place] 1,000 mL 00 :00 IV Medical Infusion, Branch ONCE, 1 dose, [place] 06/03/20 at 1530, BASIL RAMELTEON 8 2019-0 Yes [id number] 8mg TAKE 1 [facility] mg tablet 9-16 TABLET BY ity o f 00:00: MOUTH AT [place] 00 BEDTIME Medical NEEDED FOR Branch INSOMNIA. STOP TRAZODONE. RAMELTEON 8 2019-0 Yes [id number] 8mg TAKE 1 [facility] mg tablet 9-16 TABLET BY ity o f 00:00: MOUTH AT [place] 00 BEDTIME Medical NEEDED FOR Branch INSOMNIA. STOP TRAZODONE. RAMELTEON 8 2019-0 Yes [id number] 8mg TAKE 1 [facility] mg tablet 9-16 TABLET BY ity o f 00:00: MOUTH AT [place] 00 BEDTIME Medical NEEDED FOR Branch INSOMNIA. STOP TRAZODONE. RAMELTEON 8 2019- 2020- No [id number] 8mg TAKE 1 [facility] mg tablet 06-02- TABLET BY ity of 00:00: 00:00 MOUTH AT [place] 00 :00 BEDTIME Medical NEEDED FOR Branch INSOMNIA. STOP TRAZODONE. RAMELTEON 8 2019- 2020- No [id number] 8mg TAKE 1 [facility] mg tablet 06-02- TABLET BY ity of 00:00: 00:00 MOUTH AT [place] 00 :00 BEDTIME Medical NEEDED FOR Branch INSOMNIA. STOP TRAZODONE. oxyCODONE-a 2019- 2020- No 1{tbl} Take 1 U nivers cetaminophe -06 25-10 tablet by it y of n 7.5-325 22:39: 00:00 mouth [place] mg per 20 :00 (two) Medical tablet times Branch daily as needed for Pain. TRIAMTERENE 2020-0 Yes [id number] TAKE 2 [facility] -HYDROCHLOR 9-08 TABLETS BY it y of OTHIAZID 00:00: MOUTH [place] 37.5-25 mg 00 EVERY DAY Medi kacey tablet Branch TRIAMTERENE 2020-0 Yes [id number] TAKE 2 [facility] -HYDROCHLOR 9-08 TABLETS BY it y of OTHIAZID 00:00: MOUTH [place] 37.5-25 mg 00 EVERY DAY Medi kacey tablet Branch TRIAMTERENE 2020-0 Yes [id number] TAKE 2 [facility] -HYDROCHLOR 9-08 TABLETS BY it y of OTHIAZID 00:00: MOUTH [place] 37.5-25 mg 00 EVERY DAY Medi kacey tablet Branch TRIAMTERENE 2020-0 Yes [id number] TAKE 2 [facility] -HYDROCHLOR 9-08 TABLETS BY it y of OTHIAZID 00:00: MOUTH [place] 37.5-25 mg 00 EVERY DAY Medi kacey tablet Branch TRIAMTERENE 2020-0 Yes [id number] TAKE 2 [facility] -HYDROCHLOR 9-08 TABLETS BY it y of OTHIAZID 00:00: MOUTH [place] 37.5-25 mg 00 EVERY DAY Medi kacey tablet Branch TRIAMTERENE 2020-0 Yes [id number] TAKE 2 [facility] -HYDROCHLOR 9-08 TABLETS BY it y of OTHIAZID 00:00: MOUTH [place] 37.5-25 mg 00 EVERY DAY Medi kacey tablet Branch TRIAMTERENE 2020-0 Yes [id number] TAKE 2 [facility] -HYDROCHLOR 9-08 TABLETS BY it y of OTHIAZID 00:00: MOUTH [place] 37.5-25 mg 00 EVERY DAY Medi kacey tablet Branch TRIAMTERENE 2020-0 Yes [id number] TAKE 2 [facility] -HYDROCHLOR 9-08 TABLETS BY it y of OTHIAZID 00:00: MOUTH [place] 37.5-25 mg 00 EVERY DAY Medi kacey tablet Branch TRIAMTERENE 2020-0 Yes [id number] TAKE 2 [facility] -HYDROCHLOR 9-08 TABLETS BY it y of OTHIAZID 00:00: MOUTH [place] 37.5-25 mg 00 EVERY DAY Medi kacey tablet Branch TRIAMTERENE 2020-0 Yes [id number] TAKE 2 [facility] -HYDROCHLOR 9-08 TABLETS BY it y of OTHIAZID 00:00: MOUTH [place] 37.5-25 mg 00 EVERY DAY Medi [place]acey tablet Branch TRIAMTERENE 2020-0 Yes [id number] TAKE 2 [facility] -HYDROCHLOR 9-08 TABLETS BY it y of OTHIAZID 00:00: MOUTH [place] 37.5-25 mg 00 EVERY DAY [facility] tablet [facility] TRIAMTERENE 2020-0 Yes [id number] TAKE 2 [facility] -HYDROCHLOR 9-08 TABLETS BY it y of OTHIAZID 00:00: MOUTH [place] 37.5-25 mg 00 EVERY DAY [facility] tablet [facility] TRIAMTERENE 2020-0 Yes [id number] TAKE 2 [facility] -HYDROCHLOR 9-08 TABLETS BY it y of OTHIAZID 00:00: MOUTH [place] 37.5-25 mg 00 EVERY DAY [facility] tablet [facility] TRIAMTERENE 2020-0 Yes [id number] TAKE 2 [facility] -HYDROCHLOR 9-08 TABLETS BY it y of OTHIAZID 00:00: MOUTH [place] 37.5-25 mg 00 EVERY DAY [facility] tablet [facility] TRIAMTERENE 2020-0 Yes [id number] TAKE 2 [facility] -HYDROCHLOR 9-08 TABLETS BY it y of OTHIAZID 00:00: MOUTH [place] 37.5-25 mg 00 EVERY DAY [facility] tablet [facility] TRIAMTERENE 2020-0 Yes [id number] TAKE 2 [facility] -HYDROCHLOR 9-08 TABLETS BY it y of OTHIAZID 00:00: MOUTH [place] 37.5-25 mg 00 EVERY DAY [facility] tablet [facility] TRIAMTERENE 2020-0 Yes [id number] TAKE 2 [facility] -HYDROCHLOR 9-08 TABLETS BY it y of OTHIAZID 00:00: MOUTH [place] 37.5-25 mg 00 EVERY DAY [facility] tablet [facility] TRIAMTERENE 2020-0 Yes [id number] TAKE 2 [facility] -HYDROCHLOR 9-08 TABLETS BY it y of OTHIAZID 00:00: MOUTH [place] 37.5-25 mg 00 EVERY DAY [facility] tablet [facility] TRIAMTERENE 2020-0 Yes [id number] TAKE 2 [facility] -HYDROCHLOR 9-08 TABLETS BY it y of OTHIAZID 00:00: MOUTH [place] 37.5-25 mg 00 EVERY DAY [facility] tablet [facility] TRIAMTERENE 2020-0 Yes [id number] TAKE 2 [facility] -HYDROCHLOR 9-08 TABLETS BY it y of OTHIAZID 00:00: MOUTH [place] 37.5-25 mg 00 EVERY DAY [facility] tablet [facility] TRIAMTERENE 2020-0 Yes [id number] TAKE 2 [facility] -HYDROCHLOR 9-08 TABLETS BY it y of OTHIAZID 00:00: MOUTH [place] 37.5-25 mg 00 EVERY DAY [facility] tablet [facility] TRIAMTERENE 2020-0 Yes [id number] TAKE 2 [facility] -HYDROCHLOR 9-08 TABLETS BY it y of OTHIAZID 00:00: MOUTH [place] 37.5-25 mg 00 EVERY DAY [facility] tablet [facility] TRIAMTERENE 2020-0 Yes [id number] TAKE 2 [facility] -HYDROCHLOR 9-08 TABLETS BY it y of OTHIAZID 00:00: MOUTH [place] 37.5-25 mg 00 EVERY DAY [facility] tablet [facility] TRIAMTERENE 2020-0 Yes [id number] TAKE 2 [facility] -HYDROCHLOR 9-08 TABLETS BY it y of OTHIAZID 00:00: MOUTH [place] 37.5-25 mg 00 EVERY DAY [facility] tablet [facility] TRIAMTERENE 2020-0 Yes [id number] TAKE 2 [facility] -HYDROCHLOR 9-08 TABLETS BY it y of OTHIAZID 00:00: MOUTH [place] 37.5-25 mg 00 EVERY DAY [facility] tablet [facility] TRIAMTERENE 2020-0 Yes [id number] TAKE 2 [facility] -HYDROCHLOR 9-08 TABLETS BY it y of OTHIAZID 00:00: MOUTH [place] 37.5-25 mg 00 EVERY DAY [facility] tablet [facility] TRIAMTERENE 2020-0 Yes [id number] TAKE 2 [facility] -HYDROCHLOR 9-08 TABLETS BY it y of OTHIAZID 00:00: MOUTH [place] 37.5-25 mg 00 EVERY DAY [facility] tablet [facility] TRIAMTERENE 2020-0 Yes [id number] TAKE 2 [facility] -HYDROCHLOR 9-08 TABLETS BY it y of OTHIAZID 00:00: MOUTH [place] 37.5-25 mg 00 EVERY DAY [facility] tablet [facility] TRIAMTERENE 2020-0 Yes [id number] TAKE 2 [facility] -HYDROCHLOR 9-08 TABLETS BY it y of OTHIAZID 00:00: MOUTH [place] 37.5-25 mg 00 EVERY DAY [facility] tablet [facility] TRIAMTERENE 2020-0 Yes [id number] TAKE 2 [facility] -HYDROCHLOR 9-08 TABLETS BY it y of OTHIAZID 00:00: MOUTH [place] 37.5-25 mg 00 EVERY DAY [facility] tablet [facility] TRIAMTERENE 2020-0 Yes [id number] TAKE 2 [facility] -HYDROCHLOR 9-08 TABLETS BY it y of OTHIAZID 00:00: MOUTH [place] 37.5-25 mg 00 EVERY DAY [facility] tablet [facility] TRIAMTERENE 2020-0 Yes [id number] TAKE 2 [facility] -HYDROCHLOR 9-08 TABLETS BY it y of OTHIAZID 00:00: MOUTH [place] 37.5-25 mg 00 EVERY DAY [facility] tablet [facility] TRIAMTERENE 2020-0 Yes [id number] TAKE 2 [facility] -HYDROCHLOR 9-08 TABLETS BY it y of OTHIAZID 00:00: MOUTH [place] 37.5-25 mg 00 EVERY DAY [facility] tablet [facility] TRIAMTERENE 2020-0 Yes [id number] TAKE 2 [facility] -HYDROCHLOR 9-08 TABLETS BY it y of OTHIAZID 00:00: MOUTH [place] 37.5-25 mg 00 EVERY DAY [facility] tablet [facility] TRIAMTERENE 2020-0 2020- No [id number] TAKE 2 [facility] -HYDROCHLOR 9-08 12-07 TABLETS BY i ty of OTHIAZID 00:00: 00:00 MOUTH [place] 37.5-25 mg 00 :00 EVERY DAY [facility] tablet [facility] TRIAMTERENE 2020-0 2020- No [id number] TAKE 2 [facility] -HYDROCHLOR 9-08 12-07 TABLETS BY i ty of OTHIAZID 00:00: 00:00 MOUTH [place] 37.5-25 mg 00 :00 EVERY DAY [facility] tablet [facility] Dexlansopra 2020-0 Yes [id number] 60mg Take 1 [facility] zole 8-24 capsule by ity of (DEXILANT) 00:00: mouth [place] 60 mg 00 daily. Medical capsule STOP Branch TO CURRY ramelteon 8 2020-0 Yes [id number] 8mg Take 1 [facility] mg tablet 8-24 tablet by ity o f 00:00: mouth at [place] 00 bedtime as Medical needed for Branch Insomnia. STOP TRAZODONE. Dexlansopra 2020-0 Yes [id number] 60mg Take 1 [facility] zole 8-24 capsule by ity of (DEXILANT) 00:00: mouth [place] 60 mg 00 daily. Medical capsule STOP Branch ESOMEPRAZO LE. ramelteon 8 2020-0 Yes [id number] 8mg Take 1 [facility] mg tablet 8-24 tablet by ity o f 00:00: mouth at [place] 00 bedtime as Medical needed for Branch Insomnia. STOP TRAZODONE. Dexlansopra 2020-0 Yes [id number] 60mg Take 1 [facility] zole 8-24 capsule by ity of (DEXILANT) 00:00: mouth [place] 60 mg 00 daily. Medical capsule STOP Branch ESOMEPRAZO LE. ramelteon 8 2020-0 Yes [id number] 8mg Take 1 [facility] mg tablet 8-24 tablet by ity o f 00:00: mouth at [place] 00 bedtime as Medical needed for Branch Insomnia. STOP TRAZODONE. Dexlansopra 2020-0 Yes [id number] 60mg Take 1 [facility] zole 8-24 capsule by ity of (DEXILANT) 00:00: mouth [place] 60 mg 00 daily. Medical capsule STOP Branch ESOMEPRAZO LE. ramelteon 8 2020-0 Yes [id number] 8mg Take 1 [facility] mg tablet 8-24 tablet by ity o f 00:00: mouth at [place] 00 bedtime as Medical needed for Branch Insomnia. STOP TRAZODONE. Dexlansopra 2020-0 Yes [id number] 60mg Take 1 [facility] zole 8-24 capsule by ity of (DEXILANT) 00:00: mouth [place] 60 mg 00 daily. Medical capsule STOP Branch ESOMEPRAZO LE. ramelteon 8 2020-0 Yes [id number] 8mg Take 1 [facility] mg tablet 8-24 tablet by ity o f 00:00: mouth at [place] 00 bedtime as Medical needed for Branch Insomnia. STOP TRAZODONE. Dexlansopra 2020-0 Yes [id number] 60mg Take 1 [facility] zole 8-24 capsule by ity of (DEXILANT) 00:00: mouth [place] 60 mg 00 daily. Medical capsule STOP Branch ESOMEPRAZO LE. Dexlansopra 2020-0 Yes [id number] 60mg Take 1 [facility] zole 8-24 capsule by ity of (DEXILANT) 00:00: mouth [place] 60 mg 00 daily. Medical capsule STOP Branch ESOMEPRAZO LE. Dexlansopra 2020-0 Yes [id number] 60mg Take 1 [facility] zole 8-24 capsule by ity of (DEXILANT) 00:00: mouth [place] 60 mg 00 daily. Medical capsule STOP Branch ESOMEPRAZO LE. Dexlansopra 2020-0 Yes [id number] 60mg Take 1 [facility] zole 8-24 capsule by ity of (DEXILANT) 00:00: mouth [place] 60 mg 00 daily. Medical capsule STOP Branch ESOMEPRAZO LE. Dexlansopra 2020-0 Yes [id number] 60mg Take 1 [facility] zole 8-24 capsule by ity of (DEXILANT) 00:00: mouth [place] 60 mg 00 daily. Medical capsule STOP Branch ESOMEPRAZO LE. Dexlansopra 2020-0 Yes [id number] 60mg Take 1 [facility] zole 8-24 capsule by ity of (DEXILANT) 00:00: mouth [place] 60 mg 00 daily. Medical capsule STOP Branch ESOMEPRAZO LE. Dexlansopra 2020-0 Yes [id number] 60mg Take 1 [facility] zole 8-24 capsule by ity of (DEXILANT) 00:00: mouth [place] 60 mg 00 daily. Medical capsule STOP Branch ESOMEPRAZO LE. Dexlansopra 2020-0 Yes [id number] 60mg Take 1 [facility] zole 8-24 capsule by ity of (DEXILANT) 00:00: mouth [place] 60 mg 00 daily. Medical capsule STOP Branch ESOMEPRAZO LE. Dexlansopra 2020-0 Yes [id number] 60mg Take 1 [facility] zole 8-24 capsule by ity of (DEXILANT) 00:00: mouth [place] 60 mg 00 daily. Medical capsule STOP Branch ESOMEPRAZO LE. Dexlansopra 2020-0 Yes [id number] 60mg Take 1 [facility] zole 8-24 capsule by ity of (DEXILANT) 00:00: mouth [place] 60 mg 00 daily. Medical capsule STOP Branch ESOMEPRAZO LE. Dexlansopra 2020-0 Yes [id number] 60mg Take 1 [facility] zole 8-24 capsule by ity of (DEXILANT) 00:00: mouth [place] 60 mg 00 daily. Medical capsule STOP Branch ESOMEPRAZO LE. Dexlansopra 2020-0 Yes [id number] 60mg Take 1 [facility] zole 8-24 capsule by ity of (DEXILANT) 00:00: mouth [place] 60 mg 00 daily. Medical capsule STOP Branch ESOMEPRAZO LE. Dexlansopra 2020-0 Yes [id number] 60mg Take 1 [facility] zole 8-24 capsule by ity of (DEXILANT) 00:00: mouth [place] 60 mg 00 daily. Medical capsule STOP Branch ESOMEPRAZO LE. Dexlansopra 2020-0 Yes [id number] 60mg Take 1 [facility] zole 8-24 capsule by ity of (DEXILANT) 00:00: mouth [place] 60 mg 00 daily. Medical capsule STOP Branch ESOMEPRAZO LE. Dexlansopra 2020-0 Yes [id number] 60mg Take 1 [facility] zole 8-24 capsule by ity of (DEXILANT) 00:00: mouth [place] 60 mg 00 daily. Medical capsule STOP Branch ESOMEPRAZO LE. Dexlansopra 2020-0 Yes [id number] 60mg Take 1 [facility] zole 8-24 capsule by ity of (DEXILANT) 00:00: mouth [place] 60 mg 00 daily. Medical capsule STOP Branch ESOMEPRAZO LE. Dexlansopra 2020-0 Yes [id number] 60mg Take 1 [facility] zole 8-24 capsule by ity of (DEXILANT) 00:00: mouth [place] 60 mg 00 daily. Medical capsule STOP Branch ESOMEPRAZO LE. Dexlansopra 2020-0 Yes [id number] 60mg Take 1 [facility] zole 8-24 capsule by ity of (DEXILANT) 00:00: mouth [place] 60 mg 00 daily. Medical capsule STOP Branch ESOMEPRAZO LE. Dexlansopra 2020-0 Yes [id number] 60mg Take 1 [facility] zole 8-24 capsule by ity of (DEXILANT) 00:00: mouth [place] 60 mg 00 daily. Medical capsule STOP Branch ESOMEPRAZO LE. Dexlansopra 2020-0 Yes [id number] 60mg Take 1 [facility] zole 8-24 capsule by ity of (DEXILANT) 00:00: mouth [place] 60 mg 00 daily. Medical capsule STOP Branch ESOMEPRAZO LE. Dexlansopra 2020-0 Yes [id number] 60mg Take 1 [facility] zole 8-24 capsule by ity of (DEXILANT) 00:00: mouth [place] 60 mg 00 daily. Medical capsule STOP Branch ESOMEPRAZO LE. Dexlansopra 2020-0 Yes [id number] 60mg Take 1 [facility] zole 8-24 capsule by ity of (DEXILANT) 00:00: mouth [place] 60 mg 00 daily. Medical capsule STOP Branch ESOMEPRAZO LE. Dexlansopra 2020-0 Yes [id number] 60mg Take 1 [facility] zole 8-24 capsule by ity of (DEXILANT) 00:00: mouth [place] 60 mg 00 daily. Medical capsule STOP Branch ESOMEPRAZO LE. Dexlansopra 2020-0 Yes [id number] 60mg Take 1 [facility] zole 8-24 capsule by ity of (DEXILANT) 00:00: mouth [place] 60 mg 00 daily. Medical capsule STOP Branch ESOMEPRAZO LE. Dexlansopra 2020-0 Yes [id number] 60mg Take 1 [facility] zole 8-24 capsule by ity of (DEXILANT) 00:00: mouth [place] 60 mg 00 daily. Medical capsule STOP Branch ESOMEPRAZO LE. Dexlansopra 2020-0 Yes [id number] 60mg Take 1 [facility] zole 8-24 capsule by ity of (DEXILANT) 00:00: mouth [place] 60 mg 00 daily. Medical capsule STOP Branch ESOMEPRAZO LE. Dexlansopra 2020-0 Yes [id number] 60mg Take 1 [facility] zole 8-24 capsule by ity of (DEXILANT) 00:00: mouth [place] 60 mg 00 daily. Medical capsule STOP Branch ESOMEPRAZO LE. Dexlansopra 2020-0 Yes [id number] 60mg Take 1 [facility] zole 8-24 capsule by ity of (DEXILANT) 00:00: mouth [place] 60 mg 00 daily. Medical capsule STOP Branch ESOMEPRAZO LE. Dexlansopra 2020-0 Yes [id number] 60mg Take 1 [facility] zole 8-24 capsule by ity of (DEXILANT) 00:00: mouth [place] 60 mg 00 daily. Medical capsule STOP Branch ESOMEPRAZO LE. Dexlansopra 2020-0 Yes [id number] 60mg Take 1 [facility] zole 8-24 capsule by ity of (DEXILANT) 00:00: mouth [place] 60 mg 00 daily. Medical capsule STOP Branch ESOMEPRAZO LE. Dexlansopra 2020-0 Yes [id number] 60mg Take 1 [facility] zole 8-24 capsule by ity of (DEXILANT) 00:00: mouth [place] 60 mg 00 daily. Medical capsule STOP Branch ESOMEPRAZO LE. Dexlansopra 2020-0 Yes [id number] 60mg Take 1 [facility] zole 8-24 capsule by ity of (DEXILANT) 00:00: mouth [place] 60 mg 00 daily. Medical capsule STOP Branch ESOMEPRAZO LE. Dexlansopra 2020-0 Yes [id number] 60mg Take 1 [facility] zole 8-24 capsule by ity of (DEXILANT) 00:00: mouth [place] 60 mg 00 daily. Medical capsule STOP Branch ESOMEPRAZO LE. Dexlansopra 2020-0 Yes [id number] 60mg Take 1 [facility] zole 8-24 capsule by ity of (DEXILANT) 00:00: mouth [place] 60 mg 00 daily. Medical capsule STOP Branch ESOMEPRAZO LE. Dexlansopra 2020-0 Yes [id number] 60mg Take 1 [facility] zole 8-24 capsule by ity of (DEXILANT) 00:00: mouth [place] 60 mg 00 daily. Medical capsule STOP Branch ESOMEPRAZO LE. Dexlansopra 2020-0 Yes [id number] 60mg Take 1 [facility] zole 8-24 capsule by ity of (DEXILANT) 00:00: mouth [place] 60 mg 00 daily. Medical capsule STOP Branch ESOMEPRAZO LE. Dexlansopra 2020-0 Yes [id number] 60mg Take 1 [facility] zole 8-24 capsule by ity of (DEXILANT) 00:00: mouth [place] 60 mg 00 daily. Medical capsule STOP Branch ESOMEPRAZO LE. Dexlansopra 2020-0 Yes [id number] 60mg Take 1 [facility] zole 8-24 capsule by ity of (DEXILANT) 00:00: mouth [place] 60 mg 00 daily. Medical capsule STOP Branch ESOMEPRAZO LE. Dexlansopra 2020-0 Yes [id number] 60mg Take 1 [facility] zole 8-24 capsule by ity of (DEXILANT) 00:00: mouth [place] 60 mg 00 daily. Medical capsule STOP Branch ESOMEPRAZO LE. Dexlansopra 2020-0 Yes [id number] 60mg Take 1 [facility] zole 8-24 capsule by ity of (DEXILANT) 00:00: mouth [place] 60 mg 00 daily. Medical capsule STOP Branch ESOMEPRAZO LE. Dexlansopra 2020-0 Yes [id number] 60mg Take 1 [facility] zole 8-24 capsule by ity of (DEXILANT) 00:00: mouth [place] 60 mg 00 daily. Medical capsule STOP Branch ESOMEPRAZO LE. Dexlansopra 2020-0 Yes [id number] 60mg Take 1 [facility] zole 8-24 capsule by ity of (DEXILANT) 00:00: mouth [place] 60 mg 00 daily. Medical capsule STOP Branch ESOMEPRAZO LE. Dexlansopra 2020-0 Yes [id number] 60mg Take 1 [facility] zole 8-24 capsule by ity of (DEXILANT) 00:00: mouth [place] 60 mg 00 daily. Medical capsule STOP Branch ESOMEPRAZO LE. Dexlansopra 2020-0 Yes [id number] 60mg Take 1 [facility] zole 8-24 capsule by ity of (DEXILANT) 00:00: mouth [place] 60 mg 00 daily. Medical capsule STOP Branch ESOMEPRAZO LE. Dexlansopra 2020-0 Yes [id number] 60mg Take 1 [facility] zole 8-24 capsule by ity of (DEXILANT) 00:00: mouth [place] 60 mg 00 daily. Medical capsule STOP Branch ESOMEPRAZO LE. Dexlansopra 2020-0 Yes [id number] 60mg Take 1 [facility] zole 8-24 capsule by ity of (DEXILANT) 00:00: mouth [place] 60 mg 00 daily. Medical capsule STOP Branch ESOMEPRAZO LE. Dexlansopra 2020-0 Yes [id number] 60mg Take 1 [facility] zole 8-24 capsule by ity of (DEXILANT) 00:00: mouth [place] 60 mg 00 daily. Medical capsule STOP Branch ESOMEPRAZO LE. Dexlansopra 2020-0 2020- No [id number] 60mg Take 1 [facility] zole 8-24 12-22 capsule by ity of (DEXILANT) 00:00: 00:00 mouth [place] 60 mg 00 :00 daily. Medical capsule STOP Branch ESOMEPRAZO LE. ramelteon 8 2020-0 2020- No [id number] 8mg Take 1 [facility] mg tablet 8-24 09-16 tablet by ity of 00:00: 00:00 mouth at [place] 00 :00 bedtime as Medical needed for Branch Insomnia. STOP TRAZODONE. IBANDRONATE 2020-0 Yes [id number] 150mg TAKE 1 [facility] 150 mg 7-31 TABLET BY ity of tablet 00:00: MOUTH ONCE [place] EVERY Medical MONTH. Branch IBANDRONATE 2020-0 Yes [id number] 150mg TAKE 1 [facility] 150 mg 7-31 TABLET BY ity of tablet 00:00: MOUTH ONCE [place] [address] EVERY Medical MONTH. Branch IBANDRONATE 2020-0 Yes [id number] 150mg TAKE 1 [facility] 150 mg 7-31 TABLET BY ity of tablet 00:00: MOUTH ONCE [place] EVERY Medical MONTH. Branch IBANDRONATE 2020-0 Yes [id number] 150mg TAKE 1 [facility] 150 mg 7-31 TABLET BY ity of tablet 00:00: MOUTH ONCE [place] [address] EVERY Medical MONTH. Branch IBANDRONATE 2020-0 Yes [id number] 150mg TAKE 1 [facility] 150 mg 7-31 TABLET BY ity of tablet 00:00: MOUTH ONCE [place] [address] EVERY Medical MONTH. Branch IBANDRONATE 2020-0 Yes [id number] 150mg TAKE 1 [facility] 150 mg 7-31 TABLET BY ity of tablet 00:00: MOUTH ONCE [place] [address] EVERY Medical MONTH. Branch IBANDRONATE 2020-0 Yes [id number] 150mg TAKE 1 [facility] 150 mg 7-31 TABLET BY ity of tablet 00:00: MOUTH ONCE [place] [address] EVERY Medical MONTH. Branch IBANDRONATE 2020-0 Yes [id number] 150mg TAKE 1 [facility] 150 mg 7-31 TABLET BY ity of tablet 00:00: MOUTH ONCE [place] [address] EVERY Medical MONTH. Branch IBANDRONATE 2020-0 Yes [id number] 150mg TAKE 1 [facility] 150 mg 7-31 TABLET BY ity of tablet 00:00: MOUTH ONCE [place] [address] EVERY Medical MONTH. Branch IBANDRONATE 2020-0 Yes [id number] 150mg TAKE 1 [facility] 150 mg 7-31 TABLET BY ity of tablet 00:00: MOUTH ONCE [place] [address] EVERY Medical MONTH. Branch IBANDRONATE 2020-0 Yes [id number] 150mg TAKE 1 [facility] 150 mg 7-31 TABLET BY ity of tablet 00:00: MOUTH ONCE [place] [address] EVERY Medical MONTH. Branch IBANDRONATE 2020-0 Yes [id number] 150mg TAKE 1 [facility] 150 mg 7-31 TABLET BY ity of tablet 00:00: MOUTH ONCE [place] [address] EVERY Medical MONTH. Branch IBANDRONATE 2020-0 Yes [id number] 150mg TAKE 1 [facility] 150 mg 7-31 TABLET BY ity of tablet 00:00: MOUTH ONCE [place] 00 EVERY Medical MONTH. Branch IBANDRONATE 2020-0 Yes [id number] 150mg TAKE 1 [facility] 150 mg 7-31 TABLET BY ity of tablet 00:00: MOUTH ONCE [place] 00 EVERY Medical MONTH. Branch IBANDRONATE 2020-0 Yes [id number] 150mg TAKE 1 [facility] 150 mg 7-31 TABLET BY ity of tablet 00:00: MOUTH ONCE [place] 00 EVERY Medical MONTH. Branch IBANDRONATE 2020-0 Yes [id number] 150mg TAKE 1 [facility] 150 mg 7-31 TABLET BY ity of tablet 00:00: MOUTH ONCE [place] 00 EVERY Medical MONTH. Branch IBANDRONATE 2020-0 Yes [id number] 150mg TAKE 1 [facility] 150 mg 7-31 TABLET BY ity of tablet 00:00: MOUTH ONCE [place] 00 EVERY Medical MONTH. Branch IBANDRONATE 2020-0 Yes [id number] 150mg TAKE 1 [facility] 150 mg 7-31 TABLET BY ity of tablet 00:00: MOUTH ONCE [place] 00 EVERY Medical MONTH. Branch IBANDRONATE 2020-0 Yes [id number] 150mg TAKE 1 [facility] 150 mg 7-31 TABLET BY ity of tablet 00:00: MOUTH ONCE [place] 00 EVERY Medical MONTH. Branch IBANDRONATE 2020-0 Yes [id number] 150mg TAKE 1 [facility] 150 mg 7-31 TABLET BY ity of tablet 00:00: MOUTH ONCE [place] 00 EVERY Medical MONTH. Branch IBANDRONATE 2020-0 Yes [id number] 150mg TAKE 1 [facility] 150 mg 7-31 TABLET BY ity of tablet 00:00: MOUTH ONCE [place] [address] EVERY Medical MONTH. Branch IBANDRONATE 2020-0 Yes [id number] 150mg TAKE 1 [facility] 150 mg 7-31 TABLET BY ity of tablet 00:00: MOUTH ONCE [place] 00 EVERY Medical MONTH. Branch IBANDRONATE 2020-0 Yes [id number] 150mg TAKE 1 [facility] 150 mg 7-31 TABLET BY ity of tablet 00:00: MOUTH ONCE [place] 00 EVERY Medical MONTH. Branch IBANDRONATE 2020-0 Yes [id number] 150mg TAKE 1 [facility] 150 mg 7-31 TABLET BY ity of tablet 00:00: MOUTH ONCE [place] [address] EVERY Medical MONTH. Branch IBANDRONATE 2020-0 Yes [id number] 150mg TAKE 1 [facility] 150 mg 7-31 TABLET BY ity of tablet 00:00: MOUTH ONCE [place] 00 EVERY Medical MONTH. Branch IBANDRONATE 2020-0 Yes [id number] 150mg TAKE 1 [facility] 150 mg 7-31 TABLET BY ity of tablet 00:00: MOUTH ONCE [place] 00 EVERY Medical MONTH. Branch IBANDRONATE 2020-0 Yes [id number] 150mg TAKE 1 [facility] 150 mg 7-31 TABLET BY ity of tablet 00:00: MOUTH ONCE [place] 00 EVERY Medical MONTH. Branch IBANDRONATE 2020-0 Yes [id number] 150mg TAKE 1 [facility] 150 mg 7-31 TABLET BY ity of tablet 00:00: MOUTH ONCE [place] 00 EVERY Medical MONTH. Branch IBANDRONATE 2020-0 Yes [id number] 150mg TAKE 1 [facility] 150 mg 7-31 TABLET BY ity of tablet 00:00: MOUTH ONCE [place] 00 EVERY Medical MONTH. Branch IBANDRONATE 2020-0 Yes [id number] 150mg TAKE 1 [facility] 150 mg 7-31 TABLET BY ity of tablet 00:00: MOUTH ONCE [place] 00 EVERY Medical MONTH. Branch IBANDRONATE 2020-0 Yes [id number] 150mg TAKE 1 [facility] 150 mg 7-31 TABLET BY ity of tablet 00:00: MOUTH ONCE [place] 00 EVERY Medical MONTH. Branch IBANDRONATE 2020-0 Yes [id number] 150mg TAKE 1 [facility] 150 mg 7-31 TABLET BY ity of tablet 00:00: MOUTH ONCE [place] 00 EVERY Medical MONTH. Branch IBANDRONATE 2020-0 Yes [id number] 150mg TAKE 1 [facility] 150 mg 7-31 TABLET BY ity of tablet 00:00: MOUTH ONCE [place] 00 EVERY Medical MONTH. Branch IBANDRONATE 2020-0 Yes [id number] 150mg TAKE 1 [facility] 150 mg 7-31 TABLET BY ity of tablet 00:00: MOUTH ONCE [place] 00 EVERY Medical MONTH. Branch IBANDRONATE 2020-0 Yes [id number] 150mg TAKE 1 [facility] 150 mg 7-31 TABLET BY ity of tablet 00:00: MOUTH ONCE [place] 00 EVERY Medical MONTH. Branch IBANDRONATE 2020-0 Yes [id number] 150mg TAKE 1 [facility] 150 mg 7-31 TABLET BY ity of tablet 00:00: MOUTH ONCE [place] 00 EVERY Medical MONTH. Branch IBANDRONATE 2020-0 Yes [id number] 150mg TAKE 1 [facility] 150 mg 7-31 TABLET BY ity of tablet 00:00: MOUTH ONCE [place] 00 EVERY Medical MONTH. Branch IBANDRONATE 2020-0 Yes [id number] 150mg TAKE 1 [facility] 150 mg 7-31 TABLET BY ity of tablet 00:00: MOUTH ONCE [place] 00 EVERY Medical MONTH. Branch IBANDRONATE 2020-0 Yes [id number] 150mg TAKE 1 [facility] 150 mg 7-31 TABLET BY ity of tablet 00:00: MOUTH ONCE [place] 00 EVERY Medical MONTH. Branch IBANDRONATE 2020-0 Yes [id number] 150mg TAKE 1 [facility] 150 mg 7-31 TABLET BY ity of tablet 00:00: MOUTH ONCE [place] 00 EVERY Medical MONTH. Branch IBANDRONATE 2020-0 Yes [id number] 150mg TAKE 1 [facility] 150 mg 7-31 TABLET BY ity of tablet 00:00: MOUTH ONCE [place] 00 EVERY Medical MONTH. Branch IBANDRONATE 2020-0 Yes [id number] 150mg TAKE 1 [facility] 150 mg 7-31 TABLET BY ity of tablet 00:00: MOUTH ONCE [place] 00 EVERY Medical MONTH. Branch IBANDRONATE 2020-0 Yes [id number] 150mg TAKE 1 [facility] 150 mg 7-31 TABLET BY ity of tablet 00:00: MOUTH ONCE [place] 00 EVERY Medical MONTH. Branch IBANDRONATE 2020-0 Yes [id number] 150mg TAKE 1 [facility] 150 mg 7-31 TABLET BY ity of tablet 00:00: MOUTH ONCE [place] 00 EVERY Medical MONTH. Branch IBANDRONATE 2020-0 Yes [id number] 150mg TAKE 1 [facility] 150 mg 7-31 TABLET BY ity of tablet 00:00: MOUTH ONCE [place] 00 EVERY Medical MONTH. Branch IBANDRONATE 2020-0 Yes [id number] 150mg TAKE 1 [facility] 150 mg 7-31 TABLET BY ity of tablet 00:00: MOUTH ONCE [place] [address] EVERY Medical MONTH. Branch IBANDRONATE 2020-0 Yes [id number] 150mg TAKE 1 [facility] 150 mg 7-31 TABLET BY ity of tablet 00:00: MOUTH ONCE [place] 00 EVERY Medical MONTH. Branch IBANDRONATE 2020-0 Yes [id number] 150mg TAKE 1 [facility] 150 mg 7-31 TABLET BY ity of tablet 00:00: MOUTH ONCE [place] 00 EVERY Medical MONTH. Branch IBANDRONATE 2020-0 Yes [id number] 150mg TAKE 1 [facility] 150 mg 7-31 TABLET BY ity of tablet 00:00: MOUTH ONCE [place] [address] EVERY Medical MONTH. Branch IBANDRONATE 2020-0 Yes [id number] 150mg TAKE 1 [facility] 150 mg 7-31 TABLET BY ity of tablet 00:00: MOUTH ONCE [place] 00 EVERY Medical MONTH. Branch IBANDRONATE 2020-0 Yes [id number] 150mg TAKE 1 [facility] 150 mg 7-31 TABLET BY ity of tablet 00:00: MOUTH ONCE [place] 00 EVERY Medical MONTH. Branch IBANDRONATE 2020-0 Yes [id number] 150mg TAKE 1 [facility] 150 mg 7-31 TABLET BY ity of tablet 00:00: MOUTH ONCE [place] 00 EVERY Medical MONTH. Branch IBANDRONATE 2020-0 Yes [id number] 150mg TAKE 1 [facility] 150 mg 7-31 TABLET BY ity of tablet 00:00: MOUTH ONCE [place] 00 EVERY Medical MONTH. Branch IBANDRONATE 2020-0 Yes [id number] 150mg TAKE 1 [facility] 150 mg 7-31 TABLET BY ity of tablet 00:00: MOUTH ONCE [place] 00 EVERY Medical MONTH. Branch IBANDRONATE 2020-0 Yes [id number] 150mg TAKE 1 [facility] 150 mg 7-31 TABLET BY ity of tablet 00:00: MOUTH ONCE [place] 00 EVERY Medical MONTH. Branch IBANDRONATE 2020-0 Yes [id number] 150mg TAKE 1 [facility] 150 mg 7-31 TABLET BY ity of tablet 00:00: MOUTH ONCE [place] 00 EVERY Medical MONTH. Branch IBANDRONATE 2020-0 Yes [id number] 150mg TAKE 1 [facility] 150 mg 7-31 TABLET BY ity of tablet 00:00: MOUTH ONCE [place] 00 EVERY Medical MONTH. Branch IBANDRONATE 2020-0 Yes [id number] 150mg TAKE 1 [facility] 150 mg 7-31 TABLET BY ity of tablet 00:00: MOUTH ONCE [place] 00 EVERY Medical MONTH. Branch IBANDRONATE 2020-0 Yes [id number] 150mg TAKE 1 [facility] 150 mg 7-31 TABLET BY ity of tablet 00:00: MOUTH ONCE [place] 00 EVERY Medical MONTH. Branch IBANDRONATE 2020-0 Yes [id number] 150mg TAKE 1 [facility] 150 mg 7-31 TABLET BY ity of tablet 00:00: MOUTH ONCE [place] 00 EVERY Medical MONTH. Branch IBANDRONATE 2020-0 Yes [id number] 150mg TAKE 1 [facility] 150 mg 7-31 TABLET BY ity of tablet 00:00: MOUTH ONCE [place] 00 EVERY Medical MONTH. Branch IBANDRONATE 2020-0 Yes [id number] 150mg TAKE 1 [facility] 150 mg 7-31 TABLET BY ity of tablet 00:00: MOUTH ONCE [place] 00 EVERY Medical MONTH. Branch IBANDRONATE 2020-0 Yes [id number] 150mg TAKE 1 [facility] 150 mg 7-31 TABLET BY ity of tablet 00:00: MOUTH ONCE [place] 00 EVERY Medical MONTH. Branch IBANDRONATE 2020-0 Yes [id number] 150mg TAKE 1 [facility] 150 mg 7-31 TABLET BY ity of tablet 00:00: MOUTH ONCE [place] 00 EVERY Medical MONTH. Branch IBANDRONATE 2020-0 Yes [id number] 150mg TAKE 1 [facility] 150 mg 7-31 TABLET BY ity of tablet 00:00: MOUTH ONCE [place] 00 EVERY Medical MONTH. Branch IBANDRONATE 2020-0 Yes [id number] 150mg TAKE 1 [facility] 150 mg 7-31 TABLET BY ity of tablet 00:00: MOUTH ONCE [place] 00 EVERY Medical MONTH. Branch IBANDRONATE 2020-0 Yes [id number] 150mg TAKE 1 [facility] 150 mg 7-31 TABLET BY ity of tablet 00:00: MOUTH ONCE [place] 00 EVERY Medical MONTH. Branch IBANDRONATE 2020-0 Yes [id number] 150mg TAKE 1 [facility] 150 mg 7-31 TABLET BY [facility] tablet 00:00: MOUTH ONCE [place] 00 EVERY Medical MONTH. Branch IBANDRONATE 2020-0 Yes [id number] 150mg TAKE 1 [facility] 150 mg 7-31 TABLET BY [facility] tablet 00:00: MOUTH ONCE [place] 00 EVERY Medical MONTH. Branch IBANDRONATE 2020-0 Yes [id number] 150mg TAKE 1 [facility] 150 mg 7-31 TABLET BY [facility] tablet 00:00: MOUTH ONCE [place] 00 EVERY Medical MONTH. Branch IBANDRONATE 2020-0 Yes [id number] 150mg TAKE 1 [facility] 150 mg 7-31 TABLET BY [facility] tablet 00:00: MOUTH ONCE [place] [address] EVERY Medical MONTH. Branch IBANDRONATE 2020-0 Yes [id number] 150mg TAKE 1 [facility] 150 mg 7-31 TABLET BY [facility] tablet 00:00: MOUTH ONCE [place] 00 EVERY Medical MONTH. Branch IBANDRONATE 2020-0 Yes [id number] 150mg TAKE 1 [facility] 150 mg 7-31 TABLET BY [facility] tablet 00:00: MOUTH ONCE [place] 00 EVERY Medical MONTH. Branch IBANDRONATE 2020-0 Yes [id number] 150mg TAKE 1 [facility] 150 mg 7-31 TABLET BY [facility] of tablet 00:00: MOUTH ONCE [place] [address] EVERY Medical MONTH. Branch IBANDRONATE 2020-0 Yes [id number] 150mg TAKE 1 [facility] 150 mg 7-31 TABLET BY [facility] tablet 00:00: MOUTH ONCE [place] 00 EVERY Medical MONTH. Branch IBANDRONATE 2020-0 Yes [id number] 150mg TAKE 1 [facility] 150 mg 7-31 TABLET BY [facility] tablet 00:00: MOUTH ONCE [place] 00 EVERY Medical MONTH. Branch IBANDRONATE 2020-0 Yes [id number] 150mg TAKE 1 [facility] 150 mg 7-31 TABLET BY [facility] tablet 00:00: MOUTH ONCE [place] 00 EVERY Medical MONTH. Branch IBANDRONATE 2020-0 Yes [id number] 150mg TAKE 1 [facility] 150 mg 7-31 TABLET BY [facility] of tablet 00:00: MOUTH ONCE [place] 00 EVERY Medical MONTH. Branch IBANDRONATE 2020-0 Yes [id number] 150mg TAKE 1 [facility] 150 mg 7-31 TABLET BY [facility] of tablet 00:00: MOUTH ONCE [place] 00 EVERY Medical MONTH. Branch IBANDRONATE 2020-0 Yes [id number] 150mg TAKE 1 [facility] 150 mg 7-31 TABLET BY [facility] of tablet 00:00: MOUTH ONCE [place] 00 EVERY Medical MONTH. Branch IBANDRONATE 2020-0 Yes [id number] 150mg TAKE 1 [facility] 150 mg 7-31 TABLET BY [facility] of tablet 00:00: MOUTH ONCE [place] 00 EVERY Medical MONTH. Branch IBANDRONATE 2020-0 Yes [id number] 150mg TAKE 1 [facility] 150 mg 7-31 TABLET BY [facility] tablet 00:00: MOUTH ONCE [place] 00 EVERY Medical MONTH. Branch IBANDRONATE 2020-0 Yes [id number] 150mg TAKE 1 [facility] 150 mg 7-31 TABLET BY [facility] of tablet 00:00: MOUTH ONCE [place] 00 EVERY Medical MONTH. Branch IBANDRONATE 2020-0 Yes [id number] 150mg TAKE 1 [facility] 150 mg 7-31 TABLET BY [facility] tablet 00:00: MOUTH ONCE [place] 00 EVERY Medical MONTH. Branch IBANDRONATE 2020-0 Yes [id number] 150mg TAKE 1 [facility] 150 mg 7-31 TABLET BY [facility] tablet 00:00: MOUTH ONCE [place] 00 EVERY Medical MONTH. Branch IBANDRONATE 2020-0 Yes [id number] 150mg TAKE 1 [facility] 150 mg 7-31 TABLET BY [facility] of tablet 00:00: MOUTH ONCE [place] 00 EVERY Medical MONTH. Branch IBANDRONATE 2020-0 Yes [id number] 150mg TAKE 1 [facility] 150 mg 7-31 TABLET BY [facility] of tablet 00:00: MOUTH ONCE [place] 00 EVERY Medical MONTH. Branch IBANDRONATE 2020-0 Yes [id number] 150mg TAKE 1 [facility] 150 mg 7-31 TABLET BY [facility] of tablet 00:00: MOUTH ONCE [place] 00 EVERY Medical MONTH. Branch IBANDRONATE 2020-0 Yes [id number] 150mg TAKE 1 [facility] 150 mg 7-31 TABLET BY [facility] of tablet 00:00: MOUTH ONCE [place] 00 EVERY Medical MONTH. Branch IBANDRONATE 2020-0 Yes [id number] 150mg TAKE 1 [facility] 150 mg 7-31 TABLET BY [facility] of tablet 00:00: MOUTH ONCE [place] 00 EVERY Medical MONTH. Branch IBANDRONATE 2020-0 Yes [id number] 150mg TAKE 1 [facility] 150 mg 7-31 TABLET BY [facility] of tablet 00:00: MOUTH ONCE [place] 00 EVERY Medical MONTH. Branch IBANDRONATE 2020-0 Yes [id number] 150mg TAKE 1 [facility] 150 mg 7-31 TABLET BY [facility] of tablet 00:00: MOUTH ONCE [place] 00 EVERY Medical MONTH. Branch IBANDRONATE 2020-0 Yes [id number] 150mg TAKE 1 [facility] 150 mg 7-31 TABLET BY [facility] of tablet 00:00: MOUTH ONCE [place] 00 EVERY Medical MONTH. Branch IBANDRONATE 2020-0 Yes [id number] 150mg TAKE 1 [facility] 150 mg 7-31 TABLET BY [facility] of tablet 00:00: MOUTH ONCE [place] 00 EVERY Medical MONTH. Branch ESOMEPRAZOL 2020-0 Yes [id number] TAKE 1 [facility] E 40 mg 7-28 CAPSULE BY [facility] of capsule 00:00: MOUTH [place] 00 DAILY WITH Medical BREAKFAST. Branch BRAND MEDICALLY NECESSARY. ESOMEPRAZOL 2020-0 Yes [id number] TAKE 1 [facility] E 40 mg 7-28 CAPSULE BY it[facility] of capsule 00:00: MOUTH [place] 00 DAILY WITH Medical BREAKFAST. Branch BRAND MEDICALLY NECESSARY. ESOMEPRAZOL 2019-0 2020- No [id number] TAKE 1 [facility] E 40 mg 7-28 08-24 CAPSULE BY ity o f capsule 00:00: 00:00 MOUTH [place] 00 :00 DAILY WITH Medical BREAKFAST. Branch BRAND MEDICALLY NECESSARY. ESOMEPRAZOL 2019-0 2020- No [id number] TAKE 1 [facility] E 40 mg 7-28 08-24 CAPSULE BY ity o f capsule 00:00: 00:00 MOUTH [place] 00 :00 DAILY WITH Medical BREAKFAST. Branch BRAND MEDICALLY NECESSARY. ESOMEPRAZOL 2019-0 2020- No [id number] TAKE 1 [facility] E 40 mg 7-28 -24 CAPSULE BY ity o f capsule 00:00: 00:00 MOUTH [place] 00 :00 DAILY WITH Medical BREAKFAST. Branch BRAND MEDICALLY NECESSARY. TRIAMTERENE 2020-0 Yes [id number] TAKE 2 [facility] -HYDROCHLOR 6-03 TABLETS BY it y of OTHIAZID 00:00: MOUTH [place] 37.5-25 mg 00 DAILY. Medical tablet Branch TRIAMTERENE 2020-0 Yes [id number] TAKE 2 [facility] -HYDROCHLOR 6-03 TABLETS BY it y of OTHIAZID 00:00: MOUTH [place] 37.5-25 mg 00 DAILY. Medical tablet Branch TRIAMTERENE 2020-0 Yes [id number] TAKE 2 [facility] -HYDROCHLOR 6-03 TABLETS BY it y of OTHIAZID 00:00: MOUTH [place] 37.5-25 mg 00 DAILY. Medical tablet Branch TRIAMTERENE 2020-0 Yes [id number] TAKE 2 [facility] -HYDROCHLOR 6-03 TABLETS BY it y of OTHIAZID 00:00: MOUTH [place] 37.5-25 mg 00 DAILY. Medical tablet Branch TRIAMTERENE 2020-0 Yes [id number] TAKE 2 [facility] -HYDROCHLOR 6-03 TABLETS BY it y of OTHIAZID 00:00: MOUTH [place] 37.5-25 mg 00 DAILY. Medical tablet Branch TRIAMTERENE 2020-0 Yes [id number] TAKE 2 [facility] -HYDROCHLOR 6-03 TABLETS BY it y of OTHIAZID 00:00: MOUTH [place] 37.5-25 mg 00 DAILY. Medical tablet Branch TRIAMTERENE 2020-0 Yes [id number] TAKE 2 [facility] -HYDROCHLOR 6-03 TABLETS BY it y of OTHIAZID 00:00: MOUTH [place] 37.5-25 mg 00 DAILY. Medical tablet Branch TRIAMTERENE 2020-0 Yes [id number] TAKE 2 [facility] -HYDROCHLOR 6-03 TABLETS BY it y of OTHIAZID 00:00: MOUTH [place] 37.5-25 mg 00 DAILY. Medical tablet Branch TRIAMTERENE 2020-0 Yes [id number] TAKE 2 [facility] -HYDROCHLOR 6-03 TABLETS BY it y of OTHIAZID 00:00: MOUTH [place] 37.5-25 mg 00 DAILY. Medical tablet Branch TRIAMTERENE 2020-0 Yes [id number] TAKE 2 [facility] -HYDROCHLOR 6-03 TABLETS BY it y of OTHIAZID 00:00: MOUTH [place] 37.5-25 mg 00 DAILY. Medical tablet Branch TRIAMTERENE 2020-0 2020- No [id number] TAKE 2 [facility] -HYDROCHLOR 6-03 09-08 TABLETS BY i ty of OTHIAZID 00:00: 00:00 MOUTH [place] 37.5-25 mg 00 :00 DAILY. Medical tablet Branch TRIAMTERENE 2020-0 2020- No [id number] TAKE 2 [facility] -HYDROCHLOR 6-03 09-08 TABLETS BY i ty of OTHIAZID 00:00: 00:00 MOUTH [place] 37.5-25 mg 00 :00 DAILY. Medical tablet Branch TIZANIDINE 2020-0 Yes [id number] 4mg TAKE 1-2 [facility] 4 mg tablet 5-07 TABLETS BY it y of 00:00: MOUTH [place] 00 EVERY 8 Medical (EIGHT) Branch HOURS NEEDED (MUSCLE PAIN OR SPASM). TIZANIDINE 2020-0 Yes [id number] 4mg TAKE 1-2 [facility] 4 mg tablet 5-07 TABLETS BY it y of 00:00: MOUTH [place] 00 EVERY 8 Medical (EIGHT) Branch HOURS NEEDED (MUSCLE PAIN OR SPASM). TIZANIDINE 2020-0 Yes [id number] 4mg TAKE 1-2 [facility] 4 mg tablet 5-07 TABLETS BY it y of 00:00: MOUTH [place] 00 EVERY 8 Medical (EIGHT) Branch HOURS NEEDED (MUSCLE PAIN OR SPASM). TIZANIDINE 2020-0 Yes [id number] 4mg TAKE 1-2 [facility] 4 mg tablet 5-07 TABLETS BY it y of 00:00: MOUTH [place] 00 EVERY 8 Medical (EIGHT) Branch HOURS NEEDED (MUSCLE PAIN OR SPASM). TIZANIDINE 2020-0 Yes [id number] 4mg TAKE 1-2 [facility] 4 mg tablet 5-07 TABLETS BY it y of 00:00: MOUTH [place] 00 EVERY 8 Medical (EIGHT) Branch HOURS NEEDED (MUSCLE PAIN OR SPASM). TIZANIDINE 2020-0 Yes [id number] 4mg TAKE 1-2 [facility] 4 mg tablet 5-07 TABLETS BY it y of 00:00: MOUTH [place] 00 EVERY 8 Medical (EIGHT) Branch HOURS NEEDED (MUSCLE PAIN OR SPASM). TIZANIDINE 2020-0 Yes [id number] 4mg TAKE 1-2 [facility] 4 mg tablet 5-07 TABLETS BY it y of 00:00: MOUTH [place] 00 EVERY 8 Medical (EIGHT) Branch HOURS NEEDED (MUSCLE PAIN OR SPASM). TIZANIDINE 2020-0 Yes [id number] 4mg TAKE 1-2 [facility] 4 mg tablet 5-07 TABLETS BY it y of 00:00: MOUTH [place] 00 EVERY 8 Medical (EIGHT) Branch HOURS NEEDED (MUSCLE PAIN OR SPASM). TIZANIDINE 2020-0 Yes [id number] 4mg TAKE 1-2 [facility] 4 mg tablet 5-07 TABLETS BY it y of 00:00: MOUTH [place] 00 EVERY 8 Medical (EIGHT) Branch HOURS NEEDED (MUSCLE PAIN OR SPASM). TIZANIDINE 2020-0 Yes [id number] 4mg TAKE 1-2 [facility] 4 mg tablet 5-07 TABLETS BY it y of 00:00: MOUTH [place] 00 EVERY 8 Medical (EIGHT) Branch HOURS NEEDED (MUSCLE PAIN OR SPASM). TIZANIDINE 2020-0 Yes [id number] 4mg TAKE 1-2 [facility] 4 mg tablet 5-07 TABLETS BY it y of 00:00: MOUTH [place] 00 EVERY 8 Medical (EIGHT) Branch HOURS NEEDED (MUSCLE PAIN OR SPASM). TIZANIDINE 2020-0 Yes [id number] 4mg TAKE 1-2 [facility] 4 mg tablet 5-07 TABLETS BY it y of 00:00: MOUTH [place] 00 EVERY 8 Medical (EIGHT) Branch HOURS NEEDED (MUSCLE PAIN OR SPASM). TIZANIDINE 2020-0 Yes [id number] 4mg TAKE 1-2 [facility] 4 mg tablet 5-07 TABLETS BY it y of 00:00: MOUTH [place] 00 EVERY 8 Medical (EIGHT) Branch HOURS NEEDED (MUSCLE PAIN OR SPASM). TIZANIDINE 2020-0 Yes [id number] 4mg TAKE 1-2 [facility] 4 mg tablet 5-07 TABLETS BY it y of 00:00: MOUTH [place] 00 EVERY 8 Medical (EIGHT) Branch HOURS NEEDED (MUSCLE PAIN OR SPASM). TIZANIDINE 2020-0 Yes [id number] 4mg TAKE 1-2 [facility] 4 mg tablet 5-07 TABLETS BY it y of 00:00: MOUTH [place] 00 EVERY 8 Medical (EIGHT) Branch HOURS NEEDED (MUSCLE PAIN OR SPASM). TIZANIDINE 2020-0 Yes [id number] 4mg TAKE 1-2 [facility] 4 mg tablet 5-07 TABLETS BY it y of 00:00: MOUTH [place] 00 EVERY 8 Medical (EIGHT) Branch HOURS NEEDED (MUSCLE PAIN OR SPASM). TIZANIDINE 2020-0 Yes [id number] 4mg TAKE 1-2 [facility] 4 mg tablet 5-07 TABLETS BY it y of 00:00: MOUTH [place] 00 EVERY 8 Medical (EIGHT) Branch HOURS NEEDED (MUSCLE PAIN OR SPASM). TIZANIDINE 2020-0 Yes [id number] 4mg TAKE 1-2 [facility] 4 mg tablet 5-07 TABLETS BY it y of 00:00: MOUTH [place] 00 EVERY 8 Medical (EIGHT) Branch HOURS NEEDED (MUSCLE PAIN OR SPASM). TIZANIDINE 2020-0 Yes [id number] 4mg TAKE 1-2 [facility] 4 mg tablet 5-07 TABLETS BY it y of 00:00: MOUTH [place] 00 EVERY 8 Medical (EIGHT) Branch HOURS NEEDED (MUSCLE PAIN OR SPASM). TIZANIDINE 2020-0 Yes [id number] 4mg TAKE 1-2 [facility] 4 mg tablet 5-07 TABLETS BY it y of 00:00: MOUTH [place] 00 EVERY 8 Medical (EIGHT) Branch HOURS NEEDED (MUSCLE PAIN OR SPASM). TIZANIDINE 2020-0 Yes [id number] 4mg TAKE 1-2 [facility] 4 mg tablet 5-07 TABLETS BY it y of 00:00: MOUTH [place] 00 EVERY 8 Medical (EIGHT) Branch HOURS NEEDED (MUSCLE PAIN OR SPASM). TIZANIDINE 2020-0 Yes [id number] 4mg TAKE 1-2 [facility] 4 mg tablet 5-07 TABLETS BY it y of 00:00: MOUTH [place] 00 EVERY 8 Medical (EIGHT) Branch HOURS NEEDED (MUSCLE PAIN OR SPASM). TIZANIDINE 2020-0 Yes [id number] 4mg TAKE 1-2 [facility] 4 mg tablet 5-07 TABLETS BY it y of 00:00: MOUTH [place] 00 EVERY 8 Medical (EIGHT) Branch HOURS NEEDED (MUSCLE PAIN OR SPASM). TIZANIDINE 2020-0 Yes [id number] 4mg TAKE 1-2 [facility] 4 mg tablet 5-07 TABLETS BY it y of 00:00: MOUTH [place] 00 EVERY 8 Medical (EIGHT) Branch HOURS NEEDED (MUSCLE PAIN OR SPASM). TIZANIDINE 2020-0 Yes [id number] 4mg TAKE 1-2 [facility] 4 mg tablet 5-07 TABLETS BY it y of 00:00: MOUTH [place] 00 EVERY 8 Medical (EIGHT) Branch HOURS NEEDED (MUSCLE PAIN OR SPASM). TIZANIDINE 2020-0 Yes [id number] 4mg TAKE 1-2 [facility] 4 mg tablet 5-07 TABLETS BY it y of 00:00: MOUTH [place] 00 EVERY 8 Medical (EIGHT) Branch HOURS NEEDED (MUSCLE PAIN OR SPASM). TIZANIDINE 2020-0 Yes [id number] 4mg TAKE 1-2 [facility] 4 mg tablet 5-07 TABLETS BY it y of 00:00: MOUTH [place] 00 EVERY 8 Medical (EIGHT) Branch HOURS NEEDED (MUSCLE PAIN OR SPASM). TIZANIDINE 2020-0 Yes [id number] 4mg TAKE 1-2 [facility] 4 mg tablet 5-07 TABLETS BY it y of 00:00: MOUTH [place] 00 EVERY 8 Medical (EIGHT) Branch HOURS NEEDED (MUSCLE PAIN OR SPASM). TIZANIDINE 2020-0 Yes [id number] 4mg TAKE 1-2 [facility] 4 mg tablet 5-07 TABLETS BY it y of 00:00: MOUTH [place] 00 EVERY 8 Medical (EIGHT) Branch HOURS NEEDED (MUSCLE PAIN OR SPASM). TIZANIDINE 2020-0 Yes [id number] 4mg TAKE 1-2 [facility] 4 mg tablet 5-07 TABLETS BY it y of 00:00: MOUTH [place] 00 EVERY 8 Medical (EIGHT) Branch HOURS NEEDED (MUSCLE PAIN OR SPASM). TIZANIDINE 2020-0 Yes [id number] 4mg TAKE 1-2 [facility] 4 mg tablet 5-07 TABLETS BY it y of 00:00: MOUTH [place] 00 EVERY 8 Medical (EIGHT) Branch HOURS NEEDED (MUSCLE PAIN OR SPASM). TIZANIDINE 2020-0 Yes [id number] 4mg TAKE 1-2 [facility] 4 mg tablet 5-07 TABLETS BY it y of 00:00: MOUTH [place] 00 EVERY 8 Medical (EIGHT) Branch HOURS NEEDED (MUSCLE PAIN OR SPASM). TIZANIDINE 2020-0 Yes [id number] 4mg TAKE 1-2 [facility] 4 mg tablet 5-07 TABLETS BY it y of 00:00: MOUTH [place] 00 EVERY 8 Medical (EIGHT) Branch HOURS NEEDED (MUSCLE PAIN OR SPASM). TIZANIDINE 2020-0 Yes [id number] 4mg TAKE 1-2 [facility] 4 mg tablet 5-07 TABLETS BY it y of 00:00: MOUTH [place] 00 EVERY 8 Medical (EIGHT) Branch HOURS NEEDED (MUSCLE PAIN OR SPASM). TIZANIDINE 2020-0 Yes [id number] 4mg TAKE 1-2 [facility] 4 mg tablet 5-07 TABLETS BY it y of 00:00: MOUTH [place] 00 EVERY 8 Medical (EIGHT) Branch HOURS NEEDED (MUSCLE PAIN OR SPASM). TIZANIDINE 2020-0 Yes [id number] 4mg TAKE 1-2 [facility] 4 mg tablet 5-07 TABLETS BY it y of 00:00: MOUTH [place] 00 EVERY 8 Medical (EIGHT) Branch HOURS NEEDED (MUSCLE PAIN OR SPASM). TIZANIDINE 2020-0 Yes [id number] 4mg TAKE 1-2 [facility] 4 mg tablet 5-07 TABLETS BY it y of 00:00: MOUTH [place] 00 EVERY 8 Medical (EIGHT) Branch HOURS NEEDED (MUSCLE PAIN OR SPASM). TIZANIDINE 2020-0 Yes [id number] 4mg TAKE 1-2 [facility] 4 mg tablet 5-07 TABLETS BY it y of 00:00: MOUTH [place] 00 EVERY 8 Medical (EIGHT) Branch HOURS NEEDED (MUSCLE PAIN OR SPASM). TIZANIDINE 2020-0 Yes [id number] 4mg TAKE 1-2 [facility] 4 mg tablet 5-07 TABLETS BY it y of 00:00: MOUTH [place] 00 EVERY 8 Medical (EIGHT) Branch HOURS NEEDED (MUSCLE PAIN OR SPASM). TIZANIDINE 2020-0 Yes [id number] 4mg TAKE 1-2 [facility] 4 mg tablet 5-07 TABLETS BY it y of 00:00: MOUTH [place] 00 EVERY 8 Medical (EIGHT) Branch HOURS NEEDED (MUSCLE PAIN OR SPASM). TIZANIDINE 2020-0 Yes [id number] 4mg TAKE 1-2 [facility] 4 mg tablet 5-07 TABLETS BY it y of 00:00: MOUTH [place] 00 EVERY 8 Medical (EIGHT) Branch HOURS NEEDED (MUSCLE PAIN OR SPASM). TIZANIDINE 2020-0 Yes [id number] 4mg TAKE 1-2 [facility] 4 mg tablet 5-07 TABLETS BY it y of 00:00: MOUTH [place] 00 EVERY 8 Medical (EIGHT) Branch HOURS NEEDED (MUSCLE PAIN OR SPASM). TIZANIDINE 2020-0 Yes [id number] 4mg TAKE 1-2 [facility] 4 mg tablet 5-07 TABLETS BY it y of 00:00: MOUTH [place] 00 EVERY 8 Medical (EIGHT) Branch HOURS NEEDED (MUSCLE PAIN OR SPASM). TIZANIDINE 2020-0 Yes [id number] 4mg TAKE 1-2 [facility] 4 mg tablet 5-07 TABLETS BY it y of 00:00: MOUTH [place] 00 EVERY 8 Medical (EIGHT) Branch HOURS NEEDED (MUSCLE PAIN OR SPASM). TIZANIDINE 2020-0 Yes [id number] 4mg TAKE 1-2 [facility] 4 mg tablet 5-07 TABLETS BY it y of 00:00: MOUTH [place] 00 EVERY 8 Medical (EIGHT) Branch HOURS NEEDED (MUSCLE PAIN OR SPASM). TIZANIDINE 2020-0 Yes [id number] 4mg TAKE 1-2 [facility] 4 mg tablet 5-07 TABLETS BY it y of 00:00: MOUTH [place] 00 EVERY 8 Medical (EIGHT) Branch HOURS NEEDED (MUSCLE PAIN OR SPASM). TIZANIDINE 2020-0 Yes [id number] 4mg TAKE 1-2 [facility] 4 mg tablet 5-07 TABLETS BY it y of 00:00: MOUTH [place] 00 EVERY 8 Medical (EIGHT) Branch HOURS NEEDED (MUSCLE PAIN OR SPASM). TIZANIDINE 2020-0 2020- No [id number] 4mg TAKE 1-2 [facility] 4 mg tablet 5- 12-07 TABLETS BY i ty of 00:00: 00:00 MOUTH [place] 00 :00 EVERY 8 Medical (EIGHT) Branch HOURS NEEDED (MUSCLE PAIN OR SPASM). TIZANIDINE 2020-0 2020- No [id number] 4mg TAKE 1-2 [facility] 4 mg tablet 5- 12-07 TABLETS BY i ty of 00:00: 00:00 MOUTH [place] 00 :00 EVERY 8 Medical (EIGHT) Branch HOURS NEEDED (MUSCLE PAIN OR SPASM). levothyroxi 2020-0 Yes [id number] 50ug Take 1 [facility] ne 50 mcg 4-20 tablet by ity o f tablet 00:00: mouth [place] 00 every Medical morning. Branch levothyroxi 2020-0 Yes [id number] 50ug Take 1 [facility] ne 50 mcg 4-20 tablet by ity o f tablet 00:00: mouth [place] 00 every Medical morning. Branch levothyroxi 2020-0 Yes [id number] 50ug Take 1 [facility] ne 50 mcg 4-20 tablet by ity o f tablet 00:00: mouth [place] 00 every Medical morning. Branch levothyroxi 2020-0 Yes [id number] 50ug Take 1 [facility] ne 50 mcg 4-20 tablet by ity o f tablet 00:00: mouth [place] 00 every Medical morning. Branch levothyroxi 2020-0 Yes [id number] 50ug Take 1 [facility] ne 50 mcg 4-20 tablet by ity o f tablet 00:00: mouth [place] 00 every Medical morning. Branch levothyroxi 2020-0 Yes [id number] 50ug Take 1 [facility] ne 50 mcg 4-20 tablet by ity o f tablet 00:00: mouth [place] 00 every Medical morning. Branch levothyroxi 2020-0 Yes [id number] 50ug Take 1 [facility] ne 50 mcg 4-20 tablet by ity o f tablet 00:00: mouth [place] 00 every Medical morning. Branch levothyroxi 2020-0 Yes [id number] 50ug Take 1 [facility] ne 50 mcg 4-20 tablet by ity o f tablet 00:00: mouth [place] 00 every Medical morning. Branch levothyroxi 2020-0 Yes [id number] 50ug Take 1 [facility] ne 50 mcg 4-20 tablet by ity o f tablet 00:00: mouth [place] 00 every Medical morning. Branch levothyroxi 2020-0 Yes [id number] 50ug Take 1 [facility] ne 50 mcg 4-20 tablet by ity o f tablet 00:00: mouth [place] 00 every Medical morning. Branch levothyroxi 2020-0 Yes [id number] 50ug Take 1 [facility] ne 50 mcg 4-20 tablet by ity o f tablet 00:00: mouth [place] 00 every Medical morning. Branch levothyroxi 2020-0 Yes [id number] 50ug Take 1 [facility] ne 50 mcg 4-20 tablet by ity o f tablet 00:00: mouth [place] 00 every Medical morning. Branch levothyroxi 2020-0 Yes [id number] 50ug Take 1 [facility] ne 50 mcg 4-20 tablet by ity o f tablet 00:00: mouth [place] 00 every Medical morning. Branch levothyroxi 2020-0 Yes [id number] 50ug Take 1 [facility] ne 50 mcg 4-20 tablet by ity o f tablet 00:00: mouth [place] 00 every Medical morning. Branch levothyroxi 2020-0 Yes [id number] 50ug Take 1 [facility] ne 50 mcg 4-20 tablet by ity o f tablet 00:00: mouth [place] 00 every Medical morning. Branch levothyroxi 2020-0 Yes [id number] 50ug Take 1 [facility] ne 50 mcg 4-20 tablet by ity o f tablet 00:00: mouth [place] 00 every Medical morning. Branch levothyroxi 2020-0 Yes [id number] 50ug Take 1 [facility] ne 50 mcg 4-20 tablet by ity o f tablet 00:00: mouth [place] 00 every Medical morning. Branch levothyroxi 2020-0 Yes [id number] 50ug Take 1 [facility] ne 50 mcg 4-20 tablet by ity o f tablet 00:00: mouth [place] 00 every Medical morning. Branch levothyroxi 2020-0 Yes [id number] 50ug Take 1 [facility] ne 50 mcg 4-20 tablet by ity o f tablet 00:00: mouth [place] 00 every Medical morning. Branch levothyroxi 2020-0 Yes [id number] 50ug Take 1 [facility] ne 50 mcg 4-20 tablet by ity o f tablet 00:00: mouth [place] 00 every Medical morning. Branch levothyroxi 2020-0 Yes [id number] 50ug Take 1 [facility] ne 50 mcg 4-20 tablet by ity o f tablet 00:00: mouth [place] 00 every Medical morning. Branch levothyroxi 2020-0 Yes [id number] 50ug Take 1 [facility] ne 50 mcg 4-20 tablet by ity o f tablet 00:00: mouth [place] 00 every Medical morning. Branch levothyroxi 2020-0 Yes [id number] 50ug Take 1 [facility] ne 50 mcg 4-20 tablet by ity o f tablet 00:00: mouth [place] 00 every Medical morning. Branch levothyroxi 2020-0 Yes [id number] 50ug Take 1 [facility] ne 50 mcg 4-20 tablet by ity o f tablet 00:00: mouth [place] 00 every Medical morning. Branch levothyroxi 2020-0 Yes [id number] 50ug Take 1 [facility] ne 50 mcg 4-20 tablet by ity o f tablet 00:00: mouth [place] 00 every Medical morning. Branch levothyroxi 2020-0 Yes [id number] 50ug Take 1 [facility] ne 50 mcg 4-20 tablet by ity o f tablet 00:00: mouth [place] 00 every Medical morning. Branch levothyroxi 2020-0 Yes [id number] 50ug Take 1 [facility] ne 50 mcg 4-20 tablet by ity o f tablet 00:00: mouth [place] 00 every Medical morning. Branch levothyroxi 2020-0 Yes [id number] 50ug Take 1 [facility] ne 50 mcg 4-20 tablet by ity o f tablet 00:00: mouth [place] 00 every Medical morning. Branch levothyroxi 2020-0 Yes [id number] 50ug Take 1 [facility] ne 50 mcg 4-20 tablet by ity o f tablet 00:00: mouth [place] 00 every Medical morning. Branch levothyroxi 2020-0 Yes [id number] 50ug Take 1 [facility] ne 50 mcg 4-20 tablet by ity o f tablet 00:00: mouth [place] 00 every Medical morning. Branch levothyroxi 2020-0 Yes [id number] 50ug Take 1 [facility] ne 50 mcg 4-20 tablet by ity o f tablet 00:00: mouth [place] 00 every Medical morning. Branch levothyroxi 2020-0 Yes [id number] 50ug Take 1 [facility] ne 50 mcg 4-20 tablet by ity o f tablet 00:00: mouth [place] 00 every Medical morning. Branch levothyroxi 2020-0 Yes [id number] 50ug Take 1 [facility] ne 50 mcg 4-20 tablet by ity o f tablet 00:00: mouth [place] 00 every Medical morning. Branch levothyroxi 2020-0 Yes [id number] 50ug Take 1 [facility] ne 50 mcg 4-20 tablet by ity o f tablet 00:00: mouth [place] 00 every Medical morning. Branch levothyroxi 2020-0 Yes [id number] 50ug Take 1 [facility] ne 50 mcg 4-20 tablet by ity o f tablet 00:00: mouth [place] 00 every Medical morning. Branch levothyroxi 2020-0 Yes [id number] 50ug Take 1 [facility] ne 50 mcg 4-20 tablet by ity o f tablet 00:00: mouth [place] 00 every Medical morning. Branch levothyroxi 2020-0 Yes [id number] 50ug Take 1 [facility] ne 50 mcg 4-20 tablet by ity o f tablet 00:00: mouth [place] 00 every Medical morning. Branch levothyroxi 2020-0 Yes [id number] 50ug Take 1 [facility] ne 50 mcg 4-20 tablet by ity o f tablet 00:00: mouth [place] 00 every Medical morning. Branch levothyroxi 2020-0 Yes [id number] 50ug Take 1 [facility] ne 50 mcg 4-20 tablet by ity o f tablet 00:00: mouth [place] 00 every Medical morning. Branch levothyroxi 2020-0 Yes [id number] 50ug Take 1 [facility] ne 50 mcg 4-20 tablet by ity o f tablet 00:00: mouth [place] 00 every Medical morning. Branch levothyroxi 2020-0 Yes [id number] 50ug Take 1 [facility] ne 50 mcg 4-20 tablet by ity o f tablet 00:00: mouth [place] 00 every Medical morning. Branch levothyroxi 2020-0 Yes [id number] 50ug Take 1 [facility] ne 50 mcg 4-20 tablet by ity o f tablet 00:00: mouth [place] 00 every Medical morning. Branch levothyroxi 2020-0 2020- No [id number] 50ug Take 1 [facility] ne 50 mcg [...] mouth [place] tablet 00 daily. Medical STOP [place] ELIQUIS. Indication s: a clot in the [...] clot in the lung TRAZODONE 2020-0 Yes [id number] 100mg TAKE 1 [facility] 100 mg 4-06 TABLET BY [facility] of tablet 00:00: MOUTH AT [place] [address] BEDTIME. Medical FOR Branch INSOMNIA. TRAZODONE 2020-0 Yes [id number] 100mg TAKE 1 [facility] 100 mg 4-06 TABLET BY [facility]y of tablet 00:00: MOUTH AT [place] [address] BEDTIME. Medical FOR Branch INSOMNIA. TRAZODONE 2020-0 Yes [id number] 100mg TAKE 1 [facility] 100 mg 4-06 TABLET BY ity of tablet 00:00: MOUTH AT [place] [address] BEDTIME. Medical FOR Branch INSOMNIA. TRAZODONE 2020-0 Yes [id number] 100mg TAKE 1 [facility] 100 mg 4-06 TABLET BY [facility] of tablet 00:00: MOUTH AT [place] [address] BEDTIME. Medical FOR Branch INSOMNIA. TRAZODONE 2020-0 Yes [id number] 100mg TAKE 1 [facility] 100 mg 4-06 TABLET BY [facility]y of tablet 00:00: MOUTH AT [place] [address] BEDTIME. Medical FOR Branch INSOMNIA. TRAZODONE 2020-0 Yes [id number] 100mg TAKE 1 [facility] 100 mg 4-06 TABLET BY [facility]y of tablet 00:00: MOUTH AT [place] [address] BEDTIME. Medical FOR Branch INSOMNIA. TRAZODONE 2020-0 Yes [id number] 100mg TAKE 1 [facility] 100 mg 4-06 TABLET BY [facility] of tablet 00:00: MOUTH AT [place] [address] BEDTIME. Medical FOR Branch INSOMNIA. TRAZODONE 2020-0 Yes [id number] 100mg TAKE 1 [facility] 100 mg 4-06 TABLET BY [facility] of tablet 00:00: MOUTH AT [place] [address] BEDTIME. Medical FOR Branch INSOMNIA. TRAZODONE 2020-0 Yes [id number] 100mg TAKE 1 [facility] 100 mg 4-06 TABLET BY [facility] of tablet 00:00: MOUTH AT [place] [address] BEDTIME. Medical FOR Branch INSOMNIA. TRAZODONE 2020-0 Yes [id number] 100mg TAKE 1 [facility] 100 mg 4-06 TABLET BY [facility] of tablet 00:00: MOUTH AT [place] [address] BEDTIME. Medical FOR Branch INSOMNIA. TRAZODONE 2020-0 Yes [id number] 100mg TAKE 1 [facility] 100 mg 4-06 TABLET BY [facility] of tablet 00:00: MOUTH AT [place] [address] BEDTIME. Medical FOR Branch INSOMNIA. TRAZODONE 2020-0 Yes [id number] 100mg TAKE 1 [facility] 100 mg 4-06 TABLET BY [facility] of tablet 00:00: MOUTH AT [place] [address] BEDTIME. Medical FOR Branch INSOMNIA. TRAZODONE 2020-0 Yes [id number] 100mg TAKE 1 [facility] 100 mg 4-06 TABLET BY [facility] of tablet 00:00: MOUTH AT [place] [address] BEDTIME. Medical FOR Branch INSOMNIA. TRAZODONE 2020-0 Yes [id number] 100mg TAKE 1 [facility] 100 mg 4-06 TABLET BY ity of tablet 00:00: MOUTH AT [place] [address] BEDTIME. Medical FOR Branch INSOMNIA. TRAZODONE 2020-0 Yes [id number] 100mg TAKE 1 [facility] 100 mg 4-06 TABLET BY ity of tablet 00:00: MOUTH AT [place] [address] BEDTIME. Medical FOR Branch INSOMNIA. TRAZODONE 2020-0 Yes [id number] 100mg TAKE 1 [facility] 100 mg 4-06 TABLET BY ity of tablet 00:00: MOUTH AT [place] [address] BEDTIME. Medical FOR Branch INSOMNIA. TRAZODONE 2020-0 Yes [id number] 100mg TAKE 1 [facility] 100 mg 4-06 TABLET BY ity of tablet 00:00: MOUTH AT [place] [address] BEDTIME. Medical FOR Branch INSOMNIA. TRAZODONE 2020-0 2020- No [id number] 100mg TAKE 1 [facility] 100 mg 4-06 08-24 TABLET BY ity of tablet 00:00: 00:00 MOUTH AT [place] 00 :00 BEDTIME. Medical FOR Branch INSOMNIA. TRAZODONE 2020-0 2020- No [id number] 100mg TAKE 1 [facility] 100 mg 4-06 08-24 TABLET BY ity of tablet 00:00: 00:00 MOUTH AT [place] 00 :00 BEDTIME. Medical FOR Branch INSOMNIA. TRAZODONE 2020-0 2020- No [id number] 100mg TAKE 1 [facility] 100 mg 4-06 08-24 TABLET BY ity of tablet 00:00: 00:00 MOUTH AT [place] 00 :00 BEDTIME. Medical FOR Branch INSOMNIA. levothyroxi 2020-0 Yes 37.5ug 37.5 mcg, Univers ne 3-25 Oral, ity of (SYNTHROID) 11:00: QAM-0600, [place] tablet 37.5 00 First dose Me dical mcg on Sun12/10/19 at 0600, Until Discontinu ed, Routine apixaban 2020-0 Yes 10mg 10 mg, Univers (ELIQUIS) 3-25 Oral, BID, ity of tablet 10 01:00: [place] dose [place] mg 00 on [facility] 12/09/19 at Branch 2000, Until Discontinu ed, Routine alcaftadine 2020-[address] in U nivers (LASTACAFT) 3-25 each eye. ity of 0.25 % Drop 00:58: [place] 08 Medical Branch CYCLOSPORIN 2020-[address] in U nivers E (RESTASIS 3-25 each eye. ity of OPHTHALMIC) 00:58: 08 Medical Branch ASCORBATE 2020-0 Yes Take by Univ ers CALCIUM 3-25 mouth. ity of (VITAMIN C 00:58: [place] ORAL) 08 Medical Branch DOCOSAHEXAN 2020-0 Yes Take by [facility] [place] OIC 3-25 mouth. ity of ACID/EPA 00:58: [place] (FISH OIL 08 Medical ORAL) Branch vitamin [...] 3-25 mouth. ity of ITAMIN D3 00:58: [place] (VITAMIN 08 Medical D-3 ORAL) Branch oxyCODONE-a [...] Medical Branch ASCORBATE 2020-0 Yes Take by [facility] ers CALCIUM 3-25 mouth. ity of (VITAMIN [...] 3-25 mouth. ity of ITAMIN D3 00:58: [place] (VITAMIN 08 Medical D-3 ORAL) Branch oxyCODONE-a [...] OIC 3-25 mouth. ity of ACID/EPA 00:58: [place] (FISH OIL 08 Medical ORAL) Branch vitamin [...] 3-25 mouth. ity of ITAMIN D3 00:58: [place] (VITAMIN 08 Medical D-3 ORAL) Branch alcaftadine [...] Medical Branch Magnesium 2020-0 Yes Take by [facility] ers 250 mg Tab 3-25 mouth. ity of 00:58: [place] 08 Medical Branch vitamin B-6 2020-0 Yes 100mg Take 100 U nivers (VITAMIN 3-25 mg by ity of B-6) 100 mg 00:58: mouth [place] tablet 08 daily. Medical Branch CALCIUM 2020-0 Yes [facility] CARBON[facility]/V 3-25 mouth. ity of ITAMIN [...] Medical Branch ASCORBATE 2020-0 Yes Take by [facility] ers CALCIUM 3-25 mouth. ity of (VITAMIN [...] Medical Branch CALCIUM 2020-0 Yes [facility] CARBONATE/V 3-25 mouth. ity of ITAMIN [...] Medical Branch ASCORBATE 2020-0 Yes Take by [facility] ers CALCIUM 3-25 mouth. ity of (VITAMIN C 00:58: [place] ORAL) 08 Medical Branch DOCOSAHEXAN 2020-0 Yes Take by [facility] [place] OIC 3-25 mouth. ity of ACID/EPA 00:58: [place] (FISH OIL 08 Medical ORAL) Branch vitamin E 2020-0 Yes 1000U Take 1,000 U nivers 1,000 unit 3-25 Units by ity o f capsule 00:58: mouth [place] 08 daily. Medical Branch Magnesium 2020-0 Yes Take by [facility] ers 250 mg Tab 3-25 mouth. ity of 00:58: [place] 08 Medical Branch vitamin B-6 2020-0 Yes 100mg Take 100 U nivers (VITAMIN 3-25 mg by ity of B-6) 100 mg 00:58: mouth [place] tablet 08 daily. Medical Branch CALCIUM 2020-0 Yes [facility] CARBONATE/V 3-25 mouth. ity of ITAMIN D3 00:58: [place] (VITAMIN 08 Medical D-3 ORAL) Branch oxyCODONE-a [...] 3-25 mouth. ity of ITAMIN D3 00:58: [place] (VITAMIN 08 Medical D-3 ORAL) Branch oxyCODONE-a [...] OIC 3-25 mouth. ity of ACID/EPA 00:58: [place] (FISH OIL 08 Medical ORAL) Branch vitamin E 2020-0 Yes 1000U Take 1,000 U nivers 1,000 unit 3-25 Units by ity o f capsule 00:58: mouth [place] 08 daily. Medical Branch Magnesium 2020-0 Yes Take by [facility] ers 250 mg Tab 3-25 mouth. ity of 00:58: [place] 08 Medical Branch vitamin B-6 2020-0 Yes 100mg Take 100 U nivers (VITAMIN 3-25 mg by ity of B-6) 100 mg 00:58: mouth [place] tablet 08 daily. Medical Branch CALCIUM 2020-0 Yes Take by Univer s CARBONATE/V 3-25 mouth. ity of ITAMIN D3 00:58: [place] (VITAMIN 08 Medical D-3 ORAL) Branch oxyCODONE-a [...] Medical Branch Magnesium 2020-0 Yes Take by [facility] ers 250 mg Tab 3-25 mouth. ity [...] Branch daily as needed for Pain. levothyroxi 2020- No [id number] 50ug Take 1 [facility] ne 50 mcg 3-25 04-25 tablet by ity of tablet 00:00: 04:59 mouth [place] 00 :00 every Medical morning Branch for 30 days. levothyroxi 2020- No [id number] 50ug Take 1 Univers ne 50 mcg 3-25 04-25 tablet by ity of tablet 00:00: 04:59 mouth [place] 00 :00 every Medical morning Branch for 30 days. levothyroxi 2020- No [id number] 50ug Take 1 [facility] ne 50 mcg 3-25 04-25 tablet by ity of tablet 00:00: 04:59 mouth [place] 00 :00 every Medical morning Branch for 30 days. levothyroxi 2020- No [id number] 50ug Take 1 [facility] ne 50 mcg 3-25 04-25 tablet by ity of tablet 00:00: 04:59 mouth [place] 00 :00 every Medical morning Branch for 30 days. levothyroxi 2019- 2020- No [id number] 50ug Take 1 [facility] ne 50 mcg 3-25 04-25 tablet by ity of tablet 00:00: 04:59 mouth [place] 00 :00 every Medical morning Branch for 30 days. levothyroxi 2019- 2020- No [id number] 50ug Take 1 [facility] ne 50 mcg 3-25 04-25 tablet by ity of tablet 00:00: 04:59 mouth [place] 00 :00 every Medical morning Branch for 30 days. levothyroxi 2019- 2020- No [id number] 50ug Take 1 [facility] ne 50 mcg 3-25 04-25 tablet by ity of tablet 00:00: 04:59 mouth [place] 00 :00 every Medical morning Branch for 30 days. levothyroxi 2020- No [id number] 50ug Take 1 [facility] ne 50 mcg 3-25 04-20 tablet by ity of tablet 00:00: 00:00 mouth [place] 00 :00 every Medical morning Branch for 30 days. METFORMIN 2020-0 Yes [id number] TAKE 1 [facility] [place] ER 500 mg 3-24 TABLET BY ity o f 24 hr 00:00: MOUTH [place] tablet 00 EVERY DAY Medical WITH Branch BREAKFAST METFORMIN 2020-0 Yes [id number] TAKE 1 [facility] [place] ER 500 mg 3-24 TABLET BY ity o f 24 hr 00:00: MOUTH [place] tablet 00 EVERY DAY Medical WITH Branch BREAKFAST METFORMIN 2020-0 Yes [id number] TAKE 1 [facility] [place] ER 500 mg 3-24 TABLET BY ity o f 24 hr 00:00: MOUTH [place] tablet 00 EVERY DAY Medical WITH Branch BREAKFAST METFORMIN 2020-0 Yes [id number] TAKE 1 [facility] [place] ER 500 mg 3-24 TABLET BY ity o f 24 hr 00:00: MOUTH [place] tablet 00 EVERY DAY Medical WITH Branch BREAKFAST METFORMIN 2020-0 Yes [id number] TAKE 1 [facility] [place] ER 500 mg 3-24 TABLET BY ity o f 24 hr 00:00: MOUTH [place] tablet 00 EVERY DAY Medical WITH Branch BREAKFAST METFORMIN 2020-0 Yes [id number] TAKE 1 [facility] [place] ER 500 mg 3-24 TABLET BY ity o f 24 hr 00:00: MOUTH [place] tablet 00 EVERY DAY Medical WITH Branch BREAKFAST METFORMIN 2020-0 Yes [id number] TAKE 1 [facility] [place] ER 500 mg 3-24 TABLET BY ity o f 24 hr 00:00: MOUTH [place] tablet 00 EVERY DAY Medical WITH Branch BREAKFAST METFORMIN 2020-0 Yes [id number] TAKE 1 [place] ER 500 mg 3-24 TABLET BY ity o f 24 hr 00:00: MOUTH [place] tablet 00 EVERY DAY Medical WITH Branch BREAKFAST METFORMIN 2020-0 Yes [id number] TAKE 1 [facility] [place] ER 500 mg 3-24 TABLET BY ity o f 24 hr 00:00: MOUTH [place] tablet 00 EVERY DAY Medical WITH Branch BREAKFAST METFORMIN 2020-0 Yes [id number] TAKE 1 [facility] [place] ER 500 mg 3-24 TABLET BY ity o f 24 hr 00:00: MOUTH [place] tablet 00 EVERY DAY Medical WITH Branch BREAKFAST METFORMIN 2020-0 Yes [id number] TAKE 1 [facility] [place] ER 500 mg 3-24 TABLET BY ity o f 24 hr 00:00: MOUTH [place] tablet 00 EVERY DAY Medical WITH Branch BREAKFAST METFORMIN 2020-0 Yes [id number] TAKE 1 [facility] [place] ER 500 mg 3-24 TABLET BY ity o f 24 hr 00:00: MOUTH [place] tablet 00 EVERY DAY Medical WITH Branch BREAKFAST METFORMIN 2020-0 Yes [id number] TAKE 1 [facility] [place] ER 500 mg 3-24 TABLET BY ity o f 24 hr 00:00: MOUTH [place] tablet 00 EVERY DAY Medical WITH Branch BREAKFAST METFORMIN 2020-0 Yes [id number] TAKE 1 [facility] [place] ER 500 mg 3-24 TABLET BY ity o f 24 hr 00:00: MOUTH [place] tablet 00 EVERY DAY Medical WITH Branch BREAKFAST METFORMIN 2020-0 Yes [id number] TAKE 1 [facility] [place] ER 500 mg 3-24 TABLET BY ity o f 24 hr 00:00: MOUTH [place] tablet 00 EVERY DAY Medical WITH Branch BREAKFAST METFORMIN 2020-0 Yes [id number] TAKE 1 [facility] [place] ER 500 mg 3-24 TABLET BY ity o f 24 hr 00:00: MOUTH [place] tablet 00 EVERY DAY Medical WITH Branch BREAKFAST METFORMIN 2020-0 Yes [id number] TAKE 1 [facility] [place] ER 500 mg 3-24 TABLET BY ity o f 24 hr 00:00: MOUTH [place] tablet 00 EVERY DAY Medical WITH Branch BREAKFAST METFORMIN 2020-0 Yes [id number] TAKE 1 [facility] [place] ER 500 mg 3-24 TABLET BY ity o f 24 hr 00:00: MOUTH [place] tablet 00 EVERY DAY Medical WITH Branch BREAKFAST METFORMIN 2020-0 Yes [id number] TAKE 1 [facility] [place] ER 500 mg 3-24 TABLET BY ity o f 24 hr 00:00: MOUTH [place] tablet 00 EVERY DAY Medical WITH Branch BREAKFAST METFORMIN 2020-0 Yes [id number] TAKE 1 [facility] [place] ER 500 mg 3-24 TABLET BY ity o f 24 hr 00:00: MOUTH [place] tablet 00 EVERY DAY Medical WITH Branch BREAKFAST METFORMIN 2020-0 Yes [id number] TAKE 1 [facility] [place] ER 500 mg 3-24 TABLET BY ity o f 24 hr 00:00: MOUTH [place] tablet 00 EVERY DAY Medical WITH Branch BREAKFAST METFORMIN 2020-0 Yes [id number] TAKE 1 [facility] [place] ER 500 mg 3-24 TABLET BY ity o f 24 hr 00:00: MOUTH [place] tablet 00 EVERY DAY Medical WITH Branch BREAKFAST METFORMIN 2020-0 Yes [id number] TAKE 1 [place] ER 500 mg 3-24 TABLET BY ity o f 24 hr 00:00: MOUTH [place] tablet 00 EVERY DAY Medical WITH Branch BREAKFAST METFORMIN 2020-0 Yes [id number] TAKE 1 [place] ER 500 mg 3-24 TABLET BY ity o f 24 hr 00:00: MOUTH [place] tablet 00 EVERY DAY Medical WITH Branch BREAKFAST METFORMIN 2020-0 Yes [id number] TAKE 1 [place] ER 500 mg 3-24 TABLET BY ity o f 24 hr 00:00: MOUTH [place] tablet 00 EVERY DAY Medical WITH Branch BREAKFAST METFORMIN 2020-0 Yes [id number] TAKE 1 [place] ER 500 mg 3-24 TABLET BY ity o f 24 hr 00:00: MOUTH [place] tablet 00 EVERY DAY Medical WITH Branch BREAKFAST METFORMIN 2020-0 Yes [id number] TAKE 1 [facility] [place] ER 500 mg 3-24 TABLET BY ity o f 24 hr 00:00: MOUTH [place] tablet 00 EVERY DAY Medical WITH Branch BREAKFAST METFORMIN 2020-0 Yes [id number] TAKE 1 [place] ER 500 mg 3-24 TABLET BY ity o f 24 hr 00:00: MOUTH [place] tablet 00 EVERY DAY Medical WITH Branch BREAKFAST METFORMIN 2020-0 Yes [id number] TAKE 1 [place] ER 500 mg 3-24 TABLET BY ity o f 24 hr 00:00: MOUTH [place] tablet 00 EVERY DAY Medical WITH Branch BREAKFAST METFORMIN 2020-0 Yes [id number] TAKE 1 [place] ER 500 mg 3-24 TABLET BY ity o f 24 hr 00:00: MOUTH [place] tablet 00 EVERY DAY Medical WITH Branch BREAKFAST METFORMIN 2020-0 Yes [id number] TAKE 1 [facility] [place] ER 500 mg 3-24 TABLET BY ity o f 24 hr 00:00: MOUTH [place] tablet 00 EVERY DAY Medical WITH Branch BREAKFAST METFORMIN 2020-0 Yes [id number] TAKE 1 [facility] [place] ER 500 mg 3-24 TABLET BY ity o f 24 hr 00:00: MOUTH [place] tablet 00 EVERY DAY Medical WITH Branch BREAKFAST METFORMIN 2020-0 Yes [id number] TAKE 1 [place] ER 500 mg 3-24 TABLET BY ity o f 24 hr 00:00: MOUTH [place] tablet 00 EVERY DAY Medical WITH Branch BREAKFAST METFORMIN 2020-0 Yes [id number] TAKE 1 [place] ER 500 mg 3-24 TABLET BY ity o f 24 hr 00:00: MOUTH [place] tablet 00 EVERY DAY Medical WITH Branch BREAKFAST METFORMIN 2020-0 Yes [id number] TAKE 1 [place] ER 500 mg 3-24 TABLET BY ity o f 24 hr 00:00: MOUTH [place] tablet 00 EVERY DAY Medical WITH Branch BREAKFAST METFORMIN 2020-0 Yes [id number] TAKE 1 [place] ER 500 mg 3-24 TABLET BY ity o f 24 hr 00:00: MOUTH [place] tablet 00 EVERY DAY Medical WITH Branch BREAKFAST METFORMIN 2020-0 Yes [id number] TAKE 1 [place] ER 500 mg 3-24 TABLET BY ity o f 24 hr 00:00: MOUTH [place] tablet 00 EVERY DAY Medical WITH Branch BREAKFAST METFORMIN 2020-0 Yes [id number] TAKE 1 [place] ER 500 mg 3-24 TABLET BY ity o f 24 hr 00:00: MOUTH [place] tablet 00 EVERY DAY Medical WITH Branch BREAKFAST METFORMIN 2020-0 Yes [id number] TAKE 1 [place] ER 500 mg 3-24 TABLET BY ity o f 24 hr 00:00: MOUTH [place] tablet 00 EVERY DAY Medical WITH Branch BREAKFAST METFORMIN 2020-0 2020- No [id number] TAKE 1 U nivers ER 500 mg 3-24 10-05 TABLET BY ity of 24 hr 00:00: 00:00 MOUTH [place] tablet 00 :00 EVERY DAY Medical WITH Branch BREAKFAST METFORMIN 2020-0 2020- No [id number] TAKE 1 U nivers ER 500 mg [...] by ity of 00:00: 04:59 mouth 2 [place] 00 :00 (two) Medical times Branch daily [...] tablet 12-08 tablet by ity of 00:00: 04:59 mouth [...] a blood clot in the lung levoFLOXaci 2019- No [id number] 500mg Take 1 Univers n 500 mg 3-24 -30 tablet by ity o f tablet 00:00: 04:59 mouth [place] 00 :00 every 24 Medical (twenty-fo Branch ur) hours for 5 days. levoFLOXaci 2019- No [id number] 500mg Take 1 Univers n 500 mg 3-24 -30 tablet by ity o f tablet 00:00: 04:59 mouth [place] 00 :00 every 24 Medical (twenty-fo Branch ur) hours for 5 days. levoFLOXaci 2019- No [id number] 500mg Take 1 Univers n 500 mg 3-24 -30 tablet by ity o f tablet 00:00: 04:59 mouth [place] 00 :00 every 24 Medical (twenty-fo Branch ur) hours for 5 days. levoFLOXaci 2020- No [id number] 500mg Take 1 Univers n 500 mg 3-24 03-30 tablet by ity o f tablet 00:00: 04:59 mouth [place] 00 :00 every 24 Medical (twenty-fo Branch ur) hours for 5 days. oxyCODONE-a 2019- Yes 1{tbl} Take 1 [facility] [place] cetaminophe -23 tablet by ity of n 7.5-325 03:06: mouth 2 [place] mg per 26 (two) Medical tablet times [place] daily as needed for Pain. oxyCODONE-a 2020-0 Yes 1{tbl} 1 tablet, Univers cetaminophe 12-07 Oral, ity of n 03:06: Q6HPRN, [place] (PERCOCET) 13 Starting Medic al 5-325 mg [facility] per tablet 12/07/19 at 1 tablet 2206, Until Discontinu ed, Pain (scale 7-10) traZODone 2020-0 Yes 100mg 100 mg, Univ ers (DESYREL) 3- Oral, QHS, ity of tablet 100 02:00: First dose [place] mg 00 on [facility] 12/07/19 at Branch 2100, Until Discontinu ed, Routine levoFLOXaci 2019-0 Yes 750mg 750 mg, IV Univers n in D5W 12-06 Piggyback, ity o f (LEVAQUIN) 18:45: Q24H ABX, [place] 750 mg/150 00 First dose Med ical mL on [facility] Piggyback 12/07/19 at 750 mg 1345, Until Discontinu ed, 150 mL
R lan for Anti-Infec tive: Empiric Therapy for Suspected Infection< br>Empiric Therapy Site: Urine
D uration of therapy: 7 days heparin 2020-0 2020- No 1300U/h at 13 [facility] rs 25,000 12-06 03-24 mL/hr, ity of unit/250 mL 15:00: 22:04 1,300 [place] (Premixed 00 :19 Units/hr Medica l Bag) in ([address] [place] [address] 0.45 % NS mL/hr), IV Infusion, CONTINUOUS , Starting [facility] 12/07/19 at 1000, Until 12/09/19 at 1704, Routine triamterene 2020-0 Yes 1{tbl} 1 tablet, Univers -hydrochlor 12-06 Oral, ity of othiazid 14:00: DAILY, [place] (MAXZIDE-25 00 First dose Me dical ) 37.5-25 on [facility] mg tablet 1 12/07/19 at tablet 0900, Until Discontinu ed, Routine amLODIPine 2020-0 Yes 2.5mg 2.5 mg, Uni vers (NORVASC) 3-22 Oral, ity of tablet 2.5 14:00: DAILY, [place] mg 00 First dose Medical on [facility] 12/07/19 at 0900, Until Discontinu ed, Routine Sliding 2020-0 Yes Subcutaneo Univ ers Scale 12-06 us, TID ity of Insulin - 13:00: MEALS+HS, [place] as Aspart 00 First dose Medical (NOVOLOG) + on [facility] Fsbg 12/07/19 at Testing 0800, Until Discontinu ed, Routine omeprazole 2020-0 Yes 40mg 40 mg, Unive rs (PRILOSEC) 12-06 Oral, QAM ity of capsule 40 13:00: WITH [place] mg 00 BREAKFAST, Medical First dose Branch on [facility] 12/07/19 at 0800, Until Discontinu ed
Facu lty member approving Non-formul familia medication : KELLY MITTAL
R lan for Non-Formul familia Use: PATIENT CURRENTLY TAKING NONFORMULA RY PRODUCT levothyroxi 2019-0 2020- No 25ug 25 mcg, [place] ne 12-06 03-24 Oral, ity of (SYNTHROID) 11:00: 19:39 QAM-0600, [place] tablet 25 00 :21 First dose Medi kacey mcg on [facility] 12/07/19 at 0600, Until Discontinu ed, Routine glucagon 2020-0 Yes 1mg 1 mg, Univers (GLUCAGEN 12-06 Intramuscu ity of DIAGNOSTIC 10:24: lar, PRN, [place] KIT) 32 Starting Medical injection 1 [facility] mg 12/07/19 at 0524, Until Discontinu ed, BASIL, Blood Glucose < or = 70 mg/dL and patient is unable to swallow or has mental changes. dextrose 50 2020-0 Yes 25mL 25 mL, Univ ers % in water 12-06 Slow IV ity of (D50W) 10:24: Push, PRN, [place] injection 32 Starting Medica l 25 mL [facility] 12/07/19 at 0524, Until Discontinu ed, BASIL, Blood Glucose < or = 70 mg/dL and patient is unable to swallow or has mental status changes. CYCLOSPORIN 2020-[address] in [facility] (RESTASIS 12-06 each eye. ity of OPHTHALMIC) 10:23: [place] 27 Medical Branch ASCORBATE 2020-0 Yes Take by [facility] ers CALCIUM - mouth. ity of (VITAMIN C 10:23: [place] ORAL) Medical Branch DOCOSAHEXAN Yes Take by [place] OIC 12-06 mouth. ity of ACID/EPA 10:23: [place] (FISH OIL Medical ORAL) Branch vitamin E 2019- Yes 1000U Take 1,000 U nivers 1,000 unit 12-06 Units by ity o f capsule 10:23: mouth [place] 27 daily. Medical Branch Magnesium 0 Yes Take by [facility] ers 250 mg Tab 12-06 mouth. ity of 10:23: [place] Medical Branch vitamin B-6 Yes 100mg Take 100 U nivers (VITAMIN 3- mg by ity of B-6) 100 mg 10:23: mouth [place] tablet daily. Medical Branch CALCIUM Yes Take by [facility] [place] s CARBONATE/V 12-06 mouth. ity of ITAMIN D3 10:23: [place] (VITAMIN Medical D-3 ORAL) [place] albuterol-i Yes 1{puff} 1 Puff, Univers pratropium 12-06 Inhalation ity of (COMBIVENT 10:20: , Q6HPRN, [place] RESPIMAT) 41 Starting Medica l 20-100 [facility] mcg/actuati 12/07/19 at on inhaler 0520, 1 Puff Until Discontinu ed, Routine, Wheezing, Shortness of Breath hydralAZINE 2019-0 Yes 10mg 10 mg, [facility] ers (APRESOLINE 12-06 Intravenou it y of ) injection 05:40: s, Q6HPRN, [place] 10 mg 38 Starting Medical [facility] 12/07/19 at 0040, Until Discontinu ed, Routine, Hypertensi on acetaminoph 2019-0 Yes 650mg 650 mg, Un [place] en 12-06 Oral, ity of (TYLENOL) 05:40: Q6HPRN, [place] tablet 650 19 Starting Medic al mg [facility] 12/07/19 at 0040, Until Discontinu ed, Routine, Pain (scale 1-3), Temp > 38.5 C ondansetron 2019-0 Yes 4mg 4 mg, Slow Univers (ZOFRAN 12-06 IV Push, ity of (PF)) 05:22: Q6HPRN, [place] injection 4 26 Starting Medi kacey mg [place] 12/07/19 at 0022, Until Discontinu ed, Routine, Nausea and Vomiting (N/V) traMADol 2019-0 2020- No 50mg 50 mg, Univer s (ULTRAM) 12-0624 Oral, ity of tablet 50 05:22: 05:21 Q8HPRN, [place] mg 21 :21 Starting Medical [facility] 12/07/19 at 0022, Until 12/09/19 at 0021, Routine, Pain (scale 4-6) alcaftadine 2019-[address] in U nivers (LASTACAFT) 3-22 each eye. ity of 0.25 % Drop 03:51: [place] 00 [facility] heparin 2020-0 2020- No 1300U/h 1,300 Unive rs 25,000 12-06 Units/hr ity of unit/250 mL 03:45: 10:06 (13 [place] (Premixed 00 :17 mL/hr), IV Medi kacey Bag) in Infusion, Branch NaCl 0.45 % CONTINUOUS weight , Starting based Sat dosing 12/06/19 at DVT/PE 2245, protocol Until [facility] 12/07/19 at 0506 heparin 2020-0 2020- No 5000U 5,000 Univers 1000 12-06 Units, IV ity of unit/mL 03:45: 03:45 Push, [place] injection 00 :00 ONCE, 1 Medical Soln 5,000 dose, Sat Bran ch Units 12/06/19 at 2245, Routine iohexol 2019-0 2020- No 120mL 120 mL, Unive rs (OMNIPAQUE 12-06 Intravenou it y of 350 02:45: 02:45 s, ONCE, 1 [place] BULK-150 00 :00 dose, Sat Medica l mL) 12/06/19 at Branch injection 2145, 120 mL Routine ipratropium 2020-0 2020- No 3mL 3 mL, Univ ers -albuterol Inhalation it y of (DUONEB) 02:45: 02:46 , ONCE, 1 [place] 0.5 mg-3 00 :00 dose, Fri Medica l mg(2.5 mg 11/14/19 at [facility] base)/3 mL 2045, BASIL nebulizer solution 3 mL predniSONE 2020-0 2020- No 60mg 60 mg, Univ ers (DELTASONE) - Oral, ity of tablet 60 02:15: 01:25 ONCE, 1 [place] mg 00 :00 dose, Fri Medical 11/14/19 at Branch 2015, BASIL ipratropium 2020-0 2020- No 3mL 3 mL, Univ ers -albuterol Inhalation it y of (DUONEB) 02:15: 01:32 , ONCE, 1 [place] 0.5 mg-3 00 :00 dose, Fri Medica l mg(2.5 mg 11/14/19 at [facility])/3 mL 2014, BASIL nebulizer solution 3 mL azithromyci 2020-0 Yes Univer s n 250 mg 2-29 ity of tablet 00:00: [place] [address] Medical Branch predniSONE 2020-0 Yes 60mg Take 60 mg U nivers 20 mg 2-29 by mouth ity of tablet 00:00: every [place] [address] morning. Medical Branch cefpodoxime 2020-0 Yes 200mg Take 200 U nivers 200 mg 2-29 mg by ity of tablet 00:00: mouth 2 [place] (two) Medical times [place] daily. azithromyci 2020-0 Yes Univer s n 250 mg 2-29 ity of tablet 00:00: [place] 00 Medical Branch predniSONE 2020-0 Yes 60mg Take 60 mg U nivers 20 mg 2-29 by mouth ity of tablet 00:00: every [place] [address] morning. Medical Branch cefpodoxime 2020-0 Yes 200mg Take 200 U nivers 200 mg 2-29 mg by ity of tablet 00:00: mouth 2 [place] (two) Medical times [place] daily. azithromyci 2020-0 Yes Univer s n 250 mg 2-29 ity of tablet 00:00: [place] 00 Medical Branch predniSONE 2020-0 Yes 60mg Take 60 mg U nivers 20 mg 2-29 by mouth ity of tablet 00:00: every [place] [address] morning. Medical Branch cefpodoxime 2020-0 Yes 200mg Take 200 U nivers 200 mg 2-29 mg by ity of tablet 00:00: mouth 2 [place] (two) Medical times [place] daily. azithromyci 2020-0 Yes Univer s n 250 mg 2-29 ity of tablet 00:00: [place] 00 Medical Branch predniSONE 2020-0 Yes 60mg Take 60 mg U nivers 20 mg 2-29 by mouth ity of tablet 00:00: every [place] 00 morning. Medical Branch cefpodoxime 2020-0 Yes 200mg Take 200 U nivers 200 mg 2-29 mg by ity of tablet 00:00: mouth 2 [place] (two) Medical times Branch daily. azithromyci 2020-0 Yes Univer s n 250 mg 2-29 ity of tablet 00:00: [place] 00 Medical Branch predniSONE 2020-0 Yes 60mg Take 60 mg U nivers 20 mg 2-29 by mouth ity of tablet 00:00: every [place] 00 morning. Medical Branch cefpodoxime 2020-0 Yes 200mg Take 200 U nivers 200 mg 2-29 mg by ity of tablet 00:00: mouth 2 [place] (two) Medical times Branch daily. azithromyci 2020-0 Yes Univer s n 250 mg 2-29 ity of tablet 00:00: [place] 00 Medical Branch predniSONE 2020-0 Yes 60mg Take 60 mg U nivers 20 mg 2-29 by mouth ity of tablet 00:00: every [place] 00 morning. Medical Branch cefpodoxime 2020-0 Yes 200mg Take 200 U nivers 200 mg 2-29 mg by ity of tablet 00:00: mouth 2 [place] (two) Medical times Branch daily. azithromyci 2020-0 Yes Univer s n 250 mg 2-29 ity of tablet 00:00: [place] 00 Medical Branch predniSONE 2020-0 Yes 60mg Take 60 mg U nivers 20 mg 2-29 by mouth ity of tablet 00:00: every [place] morning. Medical Branch cefpodoxime 2020-0 Yes 200mg Take 200 U nivers 200 mg 2-29 mg by ity of tablet 00:00: mouth 2 [place] (two) Medical times Branch daily. azithromyci 2020-0 Yes Univer s n 250 mg 2-29 ity of tablet 00:00: [place] 00 Medical Branch predniSONE 2020-0 Yes 60mg Take 60 mg U nivers 20 mg 2-29 by mouth ity of tablet 00:00: every [place] 00 morning. Medical Branch cefpodoxime 2020-0 Yes 200mg Take 200 U nivers 200 mg 2-29 mg by ity of tablet 00:00: mouth 2 [place] (two) Medical times Branch daily. azithromyci 2020-0 Yes Univer s n 250 mg 2-29 ity of tablet 00:00: [place] 00 Medical Branch predniSONE 2020-0 Yes 60mg Take 60 mg U nivers 20 mg 2-29 by mouth ity of tablet 00:00: every [place] 00 morning. Medical Branch cefpodoxime 2020-0 Yes 200mg Take 200 U nivers 200 mg 2-29 mg by ity of tablet 00:00: mouth 2 [place] (two) Medical times Branch daily. azithromyci 2020-0 Yes Univer s n 250 mg 2-29 ity of tablet 00:00: [place] 00 Medical Branch predniSONE 2020-0 Yes 60mg Take 60 mg U nivers 20 mg 2-29 by mouth ity of tablet 00:00: every [place] morning. Medical Branch cefpodoxime 2020-0 Yes 200mg Take 200 [facility] 200 mg 2-29 mg by ity of tablet 00:00: mouth 2 [place] (two) [facility] times [facility] daily. azithromyci 2020-0 Yes [facility] n 250 mg 2-29 ity of tablet 00:00: [place] 00 [facility] predniSONE 2020-0 Yes 60mg Take 60 mg [facility] n[facility] 20 mg 2-29 by mouth ity of tablet 00:00: every [place] morning. [facility] cefpodoxime 2020-0 Yes 200mg Take 200 [facility] 200 mg 2-29 mg by ity of tablet 00:00: mouth 2 [place] (two) Medical times [facility] daily. azithromyci 2020-0 Yes [facility] n 250 mg 2-29 ity of tablet 00:00: [place] 00 [facility] predniSONE 2020-0 Yes 60mg Take 60 mg [facility] n[facility] 20 mg 2-29 by mouth ity of tablet 00:00: every [place] morning. [facility] cefpodoxime 2020-0 Yes 200mg Take 200 [facility] 200 mg 2-29 mg by ity of tablet 00:00: mouth 2 [place] (two) Medical times [facility] daily. azithromyci 2020-0 Yes [facility] n 250 mg 2-29 ity of tablet 00:00: [place] 00 [facility] predniSONE 2020-0 Yes 60mg Take 60 mg [facility] 20 mg 2-29 by mouth ity of tablet 00:00: every [place] 00 morning. [facility] cefpodoxime 2020-0 Yes 200mg Take 200 [facility] 200 mg 2-29 mg by ity of tablet 00:00: mouth 2 [place] (two) Medical times [facility] daily. azithromyci 2020-0 Yes [facility] n 250 mg 2-29 ity of tablet 00:00: [place] 00 [facility] predniSONE 2020-0 Yes 60mg Take 60 mg [facility] 20 mg 2-29 by mouth ity of tablet 00:00: every [place] 00 morning. [facility] cefpodoxime 2020-0 Yes 200mg Take 200 [facility] n[facility] 200 mg 2-29 mg by ity of tablet 00:00: mouth 2 [place] (two) Medical times [facility] daily. azithromyci 2020-0 Yes [facility] n 250 mg 2-29 ity of tablet 00:00: [place] 00 [facility] predniSONE 2020-0 Yes 60mg Take 60 mg [facility] n[facility] 20 mg 2-29 by mouth ity of tablet 00:00: every [place] 00 morning. [facility] cefpodoxime 2020-0 Yes 200mg Take 200 [facility] n[facility] 200 mg 2-29 mg by ity of tablet 00:00: mouth 2 [place] (two) Medical times [facility] daily. azithromyci 2020-0 Yes [facility] 250 mg 2-29 ity of tablet 00:00: [place] 00 [facility] predniSONE 2020-0 Yes 60mg Take 60 mg [facility] 20 mg 2-29 by mouth ity of tablet 00:00: every [place] 00 morning. [facility] cefpodoxime 2020-0 Yes 200mg Take 200 [facility] 200 mg 2-29 mg by ity of tablet 00:00: mouth 2 [place] (two) Medical times [facility] daily. azithromyci 2020-0 Yes [facility] 250 mg 2-29 ity of tablet 00:00: [place] 00 [facility] predniSONE 2020-0 Yes 60mg Take 60 mg [facility] 20 mg 2-29 by mouth ity of tablet 00:00: every [place] 00 morning. [facility] cefpodoxime 2020-0 Yes 200mg Take 200 [facility] 200 mg 2-29 mg by ity of tablet 00:00: mouth 2 [place] (two) Medical times [facility] daily. azithromyci 2020-0 Yes [facility] 250 mg 2-29 ity of tablet 00:00: [place] 00 [facility] predniSONE 2020-0 Yes 60mg Take 60 mg [facility] 20 mg 2-29 by mouth ity of tablet 00:00: every [place] 00 morning. [facility] cefpodoxime 2020-0 Yes 200mg Take 200 [facility] 200 mg 2-29 mg by ity of tablet 00:00: mouth 2 [place] (two) Medical times [facility] daily. azithromyci 2020-0 Yes [facility] 250 mg 2-29 ity of tablet 00:00: [place] 00 [facility] predniSONE 2020-0 Yes 60mg Take 60 mg [facility] n[facility] 20 mg 2-29 by mouth ity of tablet 00:00: every [place] 00 morning. [facility] cefpodoxime 2020-0 Yes 200mg Take 200 [facility] 200 mg 2-29 mg by ity of tablet 00:00: mouth 2 [place] (two) Medical times [facility] daily. azithromyci 2020-0 Yes [facility] n 250 mg 2-29 ity of tablet 00:00: [place] 00 [facility] predniSONE 2020-0 Yes 60mg Take 60 mg [facility] nivers 20 mg 2-29 by mouth ity of tablet 00:00: every [place] [id number] morning. Medical Branch azithromyci 2020-0 Yes [facility] s n 250 mg 2-29 ity of tablet 00:00: [place] 00 [facility] predniSONE 2020-0 Yes 60mg Take 60 mg [facility] n[facility] 20 mg 2-29 by mouth ity of tablet 00:00: every [place] 00 morning. [facility] azithromyci 2020-0 Yes [facility] n 250 mg 2-29 ity of tablet 00:00: [place] 00 [facility] predniSONE 2020-0 Yes 60mg Take 60 mg [facility] n[facility] 20 mg 2-29 by mouth ity of tablet 00:00: every [place] 00 morning. [facility] azithromyci 2020-0 Yes [facility] 250 mg 2-29 ity of tablet 00:00: [place] 00 [facility] predniSONE 2020-0 Yes 60mg Take 60 mg [facility] nivers 20 mg 2-29 by mouth ity of tablet 00:00: every [place] 00 morning. [facility] azithromyci 2020-0 2020- No Un[facility] rs n 250 mg 2-29 09-10 ity of tablet 00:00: 00:00 [place] 00 :00 [facility] predniSONE 2020-0 2020- No 60mg Take 60 mg [facility] 20 mg 09-10 by mouth ity of tablet 00:00: 00:00 every [place] 00 :00 morning. [facility] cefpodoxime 2020-0 2020- No 200mg Take 200 [facility] 200 mg 2- 08-24 mg by ity of tablet 00:00: 00:00 mouth 2 [place] 00 :00 (two) Medical times Branch daily. cefpodoxime 2020-0 2020- No 200mg Take 200 [facility] 200 mg 2-29 08-24 mg by ity of tablet 00:00: 00:00 mouth 2 [place] 00 :00 (two) Medical times Branch daily. cefpodoxime 2020-0 2020- No 200mg Take 200 [facility] 200 mg 2- 08-24 mg by ity of tablet 00:00: 00:00 mouth 2 [place] 00 :00 (two) Medical times Branch daily. albuterol 2020-0 Yes [id number] 2.5mg Inhale 3 [facility] 2.5 mg /3 2-28 mL every 4 ity of mL (0.083 00:00: (four) [place] %) 00 hours as Medical nebulizer needed for Bran ch solution Wheezing or Shortness of Breath. albuterol 2020-0 Yes [id number] 2.5mg Inhale 3 [facility] 2.5 mg /3 2-28 mL every 4 ity of mL (0.083 00:00: (four) [place] %) 00 hours as Medical nebulizer needed for Bran ch solution Wheezing or Shortness of Breath. albuterol 2020-0 Yes [id number] 2.5mg Inhale 3 [facility] 2.5 mg /3 2-28 mL every 4 ity of mL (0.083 00:00: (four) [place] %) 00 hours as Medical nebulizer needed for Bran ch solution Wheezing or Shortness of Breath. albuterol 2020-0 Yes [id number] 2.5mg Inhale 3 [facility] 2.5 mg /3 2-28 mL every 4 ity of mL (0.083 00:00: (four) [place] %) 00 hours as Medical nebulizer needed for Bran ch solution Wheezing or Shortness of Breath. albuterol 2020-0 Yes [id number] 2.5mg Inhale 3 [facility] 2.5 mg /3 2-28 mL every 4 ity of mL (0.083 00:00: (four) [place] %) 00 hours as Medical nebulizer needed for Bran ch solution Wheezing or Shortness of Breath. albuterol 2020-0 Yes [id number] 2.5mg Inhale 3 [facility] 2.5 mg /3 2-28 mL every 4 ity of mL (0.083 00:00: (four) [place] %) 00 hours as Medical nebulizer needed for Bran ch solution Wheezing or Shortness of Breath. albuterol 2020-0 Yes [id number] 2.5mg Inhale 3 [facility] 2.5 mg /3 2-28 mL every 4 ity of mL (0.083 00:00: (four) [place] %) 00 hours as Medical nebulizer needed for Bran ch solution Wheezing or Shortness of Breath. albuterol 2020-0 Yes [id number] 2.5mg Inhale 3 [facility] 2.5 mg /3 2-28 mL every 4 ity of mL (0.083 00:00: (four) [place] %) 00 hours as Medical nebulizer needed for Bran ch solution Wheezing or Shortness of Breath. albuterol 2020-0 Yes [id number] 2.5mg Inhale 3 [facility] 2.5 mg /3 2-28 mL every 4 ity of mL (0.083 00:00: (four) [place] %) 00 hours as Medical nebulizer needed for Bran ch solution Wheezing or Shortness of Breath. albuterol 2020-0 Yes [id number] 2.5mg Inhale 3 [facility] 2.5 mg /3 2-28 mL every 4 ity of mL (0.083 00:00: (four) [place] %) 00 hours as Medical nebulizer needed for Bran ch solution Wheezing or Shortness of Breath. albuterol 2020-0 Yes [id number] 2.5mg Inhale 3 [facility] 2.5 mg /3 2-28 mL every 4 ity of mL (0.083 00:00: (four) [place] %) 00 hours as Medical nebulizer needed for Bran ch solution Wheezing or Shortness of Breath. albuterol 2020-0 Yes [id number] 2.5mg Inhale 3 [facility] 2.5 mg /3 2-28 mL every 4 ity of mL (0.083 00:00: (four) [place] %) 00 hours as Medical nebulizer needed for Bran ch solution Wheezing or Shortness of Breath. albuterol 2020-0 Yes [id number] 2.5mg Inhale 3 [facility] 2.5 mg /3 2-28 mL every 4 ity of mL (0.083 00:00: ([facility]) [place] %) 00 hours as Medical nebulizer needed for Bran ch solution Wheezing or Shortness of Breath. albuterol 2020-0 Yes [id number] 2.5mg Inhale 3 [facility] 2.5 mg /3 2-28 mL every 4 ity of mL (0.083 00:00: ([facility]) [place] %) 00 hours as Medical nebulizer needed for Bran ch solution Wheezing or Shortness of Breath. albuterol 2020-0 Yes [id number] 2.5mg Inhale 3 [facility] 2.5 mg /3 2-28 mL every 4 ity of mL (0.083 00:00: ([facility]) [place] %) 00 hours as Medical nebulizer needed for Bran ch solution Wheezing or Shortness of Breath. albuterol 2020-0 Yes [id number] 2.5mg Inhale 3 [facility] 2.5 mg /3 2-28 mL every 4 ity of mL (0.083 00:00: ([facility]) [place] %) 00 hours as Medical nebulizer needed for Bran ch solution Wheezing or Shortness of Breath. albuterol 2020-0 Yes [id number] 2.5mg Inhale 3 [facility] 2.5 mg /3 2-28 mL every 4 ity of mL (0.083 00:00: ([facility]) [place] %) 00 hours as Medical nebulizer needed for Bran ch solution Wheezing or Shortness of Breath. albuterol 2020-0 Yes [id number] 2.5mg Inhale 3 [facility] 2.5 mg /3 2-28 mL every 4 ity of mL (0.083 00:00: (four) [place] %) 00 hours as Medical nebulizer needed for Bran ch solution Wheezing or Shortness of Breath. albuterol 2020-0 Yes [id number] 2.5mg Inhale 3 [facility] 2.5 mg /3 2-28 mL every 4 ity of mL (0.083 00:00: (four) [place] %) 00 hours as Medical nebulizer needed for Bran ch solution Wheezing or Shortness of Breath. albuterol 2020-0 Yes [id number] 2.5mg Inhale 3 [facility] 2.5 mg /3 2-28 mL every 4 ity of mL (0.083 00:00: (four) [place] %) 00 hours as Medical nebulizer needed for Bran ch solution Wheezing or Shortness of Breath. albuterol 2020-0 Yes [id number] 2.5mg Inhale 3 [facility] 2.5 mg /3 2-28 mL every 4 ity of mL (0.083 00:00: (four) [place] %) 00 hours as Medical nebulizer needed for Bran ch solution Wheezing or Shortness of Breath. albuterol 2020-0 Yes [id number] 2.5mg Inhale 3 [facility] 2.5 mg /3 2-28 mL every 4 ity of mL (0.083 00:00: (four) [place] %) 00 hours as Medical nebulizer needed for Bran ch solution Wheezing or Shortness of Breath. albuterol 2020-0 Yes [id number] 2.5mg Inhale 3 [facility] 2.5 mg /3 2-28 mL every 4 ity of mL (0.083 00:00: (four) [place] %) 00 hours as Medical nebulizer needed for Bran ch solution Wheezing or Shortness of Breath. albuterol 2020-0 Yes [id number] 2.5mg Inhale 3 [facility] 2.5 mg /3 2-28 mL every 4 ity of mL (0.083 00:00: (four) [place] %) 00 hours as Medical nebulizer needed for Bran ch solution Wheezing or Shortness of Breath. albuterol 2020-0 Yes [id number] 2.5mg Inhale 3 [facility] 2.5 mg /3 2-28 mL every 4 ity of mL (0.083 00:00: (four) [place] %) 00 hours as Medical nebulizer needed for Bran ch solution Wheezing or Shortness of Breath. albuterol 2020-0 Yes [id number] 2.5mg Inhale 3 [facility] 2.5 mg /3 2-28 mL every 4 ity of mL (0.083 00:00: (four) [place] %) 00 hours as Medical nebulizer needed for Bran ch solution Wheezing or Shortness of Breath. albuterol 2020-0 Yes [id number] 2.5mg Inhale 3 [facility] 2.5 mg /3 2-28 mL every 4 ity of mL (0.083 00:00: (four) [place] %) 00 hours as Medical nebulizer needed for Bran ch solution Wheezing or Shortness of Breath. albuterol 2020-0 Yes [id number] 2.5mg Inhale 3 [facility] 2.5 mg /3 2-28 mL every 4 ity of mL (0.083 00:00: ([facility]) [place] %) 00 hours as Medical nebulizer needed for Bran ch solution Wheezing or Shortness of Breath. albuterol 2020-0 Yes [id number] 2.5mg Inhale 3 [facility] 2.5 mg /3 2-28 mL every 4 ity of mL (0.083 00:00: ([facility]) [place] %) 00 hours as Medical nebulizer needed for Bran ch solution Wheezing or Shortness of Breath. albuterol 2020-0 Yes [id number] 2.5mg Inhale 3 [facility] 2.5 mg /3 2-28 mL every 4 ity of mL (0.083 00:00: ([facility]) [place] %) 00 hours as Medical nebulizer needed for Bran ch solution Wheezing or Shortness of Breath. albuterol 2020-0 Yes [id number] 2.5mg Inhale 3 [facility] 2.5 mg /3 2-28 mL every 4 ity of mL (0.083 00:00: ([facility]) [place] %) 00 hours as Medical nebulizer needed for Bran ch solution Wheezing or Shortness of Breath. albuterol 2020-0 Yes [id number] 2.5mg Inhale 3 [facility] 2.5 mg /3 2-28 mL every 4 ity of mL (0.083 00:00: ([facility]) [place] %) 00 hours as Medical nebulizer needed for Bran ch solution Wheezing or Shortness of Breath. albuterol 2020-0 Yes [id number] 2.5mg Inhale 3 [facility] 2.5 mg /3 2-28 mL every 4 ity of mL (0.083 00:00: ([facility]) [place] %) 00 hours as Medical nebulizer needed for Bran ch solution Wheezing or Shortness of Breath. albuterol 2020-0 Yes [id number] 2.5mg Inhale 3 [facility] 2.5 mg /3 2-28 mL every 4 ity of mL (0.083 00:00: ([facility]) [place] %) 00 hours as Medical nebulizer needed for Bran ch solution Wheezing or Shortness of Breath. albuterol 2020-0 Yes [id number] 2.5mg Inhale 3 [facility] 2.5 mg /3 2-28 mL every 4 ity of mL (0.083 00:00: (four) [place] %) 00 hours as Medical nebulizer needed for Bran ch solution Wheezing or Shortness of Breath. albuterol 2020-0 Yes [id number] 2.5mg Inhale 3 [facility] 2.5 mg /3 2-28 mL every 4 ity of mL (0.083 00:00: (four) [place] %) 00 hours as Medical nebulizer needed for Bran ch solution Wheezing or Shortness of Breath. albuterol 2020-0 Yes [id number] 2.5mg Inhale 3 [facility] 2.5 mg /3 2-28 mL every 4 ity of mL (0.083 00:00: (four) [place] %) 00 hours as Medical nebulizer needed for Bran ch solution Wheezing or Shortness of Breath. albuterol 2020-0 Yes [id number] 2.5mg Inhale 3 [facility] 2.5 mg /3 2-28 mL every 4 ity of mL (0.083 00:00: (four) [place] %) 00 hours as Medical nebulizer needed for Bran ch solution Wheezing or Shortness of Breath. albuterol 2020-0 Yes [id number] 2.5mg Inhale 3 [facility] 2.5 mg /3 2-28 mL every 4 ity of mL (0.083 00:00: (four) [place] %) 00 hours as Medical nebulizer needed for Bran ch solution Wheezing or Shortness of Breath. albuterol 2020-0 Yes [id number] 2.5mg Inhale 3 [facility] 2.5 mg /3 2-28 mL every 4 ity of mL (0.083 00:00: (four) [place] %) 00 hours as Medical nebulizer needed for Bran ch solution Wheezing or Shortness of Breath. albuterol 2020-0 Yes [id number] 2.5mg Inhale 3 [facility] 2.5 mg /3 2-28 mL every 4 ity of mL (0.083 00:00: (four) [place] %) 00 hours as Medical nebulizer needed for Bran ch solution Wheezing or Shortness of Breath. albuterol 2020-0 Yes [id number] 2.5mg Inhale 3 [facility] 2.5 mg /3 2-28 mL every 4 ity of mL (0.083 00:00: (four) [place] %) 00 hours as Medical nebulizer needed for Bran ch solution Wheezing or Shortness of Breath. albuterol 2020-0 Yes [id number] 2.5mg Inhale 3 [facility] 2.5 mg /3 2-28 mL every 4 ity of mL (0.083 00:00: ([facility]) [place] %) 00 hours as Medical nebulizer needed for Bran ch solution Wheezing or Shortness of Breath. albuterol 2020-0 Yes [id number] 2.5mg Inhale 3 [facility] 2.5 mg /3 2-28 mL every 4 ity of mL (0.083 00:00: ([facility]) [place] %) 00 hours as Medical nebulizer needed for Bran ch solution Wheezing or Shortness of Breath. albuterol 2020-0 Yes [id number] 2.5mg Inhale 3 [facility] 2.5 mg /3 2-28 mL every 4 ity of mL (0.083 00:00: ([facility]) [place] %) 00 hours as Medical nebulizer needed for Bran ch solution Wheezing or Shortness of Breath. albuterol 2020-0 Yes [id number] 2.5mg Inhale 3 [facility] 2.5 mg /3 2-28 mL every 4 ity of mL (0.083 00:00: ([facility]) [place] %) 00 hours as Medical nebulizer needed for Bran ch solution Wheezing or Shortness of Breath. albuterol 2020-0 Yes [id number] 2.5mg Inhale 3 [facility] 2.5 mg /3 2-28 mL every 4 ity of mL (0.083 00:00: (four) [place] %) 00 hours as Medical nebulizer needed for Bran ch solution Wheezing or Shortness of Breath. albuterol 2020-0 Yes [id number] 2.5mg Inhale 3 [facility] 2.5 mg /3 2-28 mL every 4 ity of mL (0.083 00:00: (four) [place] %) 00 hours as Medical nebulizer needed for Bran ch solution Wheezing or Shortness of Breath. albuterol 2020-0 Yes [id number] 2.5mg Inhale 3 [facility] 2.5 mg /3 2-28 mL every 4 ity of mL (0.083 00:00: (four) [place] %) 00 hours as Medical nebulizer needed for Bran ch solution Wheezing or Shortness of Breath. albuterol 2020-0 Yes [id number] 2.5mg Inhale 3 [facility] 2.5 mg /3 2-28 mL every 4 ity of mL (0.083 00:00: (four) [place] %) 00 hours as Medical nebulizer needed for Bran ch solution Wheezing or Shortness of Breath. albuterol 2020-0 Yes [id number] 2.5mg Inhale 3 [facility] 2.5 mg /3 2-28 mL every 4 ity of mL (0.083 00:00: (four) [place] %) 00 hours as Medical nebulizer needed for Bran ch solution Wheezing or Shortness of Breath. albuterol 2020-0 Yes [id number] 2.5mg Inhale 3 [facility] 2.5 mg /3 2-28 mL every 4 ity of mL (0.083 00:00: (four) [place] %) 00 hours as Medical nebulizer needed for Bran ch solution Wheezing or Shortness of Breath. albuterol 2020-0 Yes [id number] 2.5mg Inhale 3 [facility] 2.5 mg /3 2-28 mL every 4 ity of mL (0.083 00:00: ([facility]) [place] %) 00 hours as Medical nebulizer needed for Bran ch solution Wheezing or Shortness of Breath. albuterol 2020-0 Yes [id number] 2.5mg Inhale 3 [facility] 2.5 mg /3 2-28 mL every 4 ity of mL (0.083 00:00: (four) [place] %) 00 hours as Medical nebulizer needed for Bran ch solution Wheezing or Shortness of Breath. albuterol 2020-0 Yes [id number] 2.5mg Inhale 3 [facility] 2.5 mg /3 2-28 mL every 4 ity of mL (0.083 00:00: (four) [place] %) 00 hours as Medical nebulizer needed for Bran ch solution Wheezing or Shortness of Breath. albuterol 2020-0 Yes [id number] 2.5mg Inhale 3 [facility] 2.5 mg /3 2-28 mL every 4 ity of mL (0.083 00:00: (four) [place] %) 00 hours as Medical nebulizer needed for Bran ch solution Wheezing or Shortness of Breath. albuterol 2020-0 Yes [id number] 2.5mg Inhale 3 [facility] 2.5 mg /3 2-28 mL every 4 ity of mL (0.083 00:00: (four) [place] %) 00 hours as Medical nebulizer needed for Bran ch solution Wheezing or Shortness of Breath. albuterol 2020-0 Yes [id number] 2.5mg Inhale 3 [facility] 2.5 mg /3 2-28 mL every 4 ity of mL (0.083 00:00: (four) [place] %) 00 hours as Medical nebulizer needed for Bran ch solution Wheezing or Shortness of Breath. albuterol 2020-0 Yes [id number] 2.5mg Inhale 3 [facility] 2.5 mg /3 2-28 mL every 4 ity of mL (0.083 00:00: (four) [place] %) 00 hours as Medical nebulizer needed for Bran ch solution Wheezing or Shortness of Breath. albuterol 2020-0 Yes [id number] 2.5mg Inhale 3 [facility] 2.5 mg /3 2-28 mL every 4 ity of mL (0.083 00:00: (four) [place] %) 00 hours as Medical nebulizer needed for Bran ch solution Wheezing or Shortness of Breath. albuterol 2020-0 Yes [id number] 2.5mg Inhale 3 [facility] 2.5 mg /3 2-28 mL every 4 ity of mL (0.083 00:00: (four) [place] %) 00 hours as Medical nebulizer needed for Bran ch solution Wheezing or Shortness of Breath. albuterol 2020-0 Yes [id number] 2.5mg Inhale 3 [facility] 2.5 mg /3 2-28 mL every 4 ity of mL (0.083 00:00: (four) [place] %) 00 hours as Medical nebulizer needed for Bran ch solution Wheezing or Shortness of Breath. albuterol 2020-0 Yes [id number] 2.5mg Inhale 3 [facility] 2.5 mg /3 2-28 mL every 4 ity of mL (0.083 00:00: (four) [place] %) 00 hours as Medical nebulizer needed for Bran ch solution Wheezing or Shortness of Breath. albuterol 2020-0 Yes [id number] 2.5mg Inhale 3 [facility] 2.5 mg /3 2-28 mL every 4 ity of mL (0.083 00:00: (four) [place] %) 00 hours as Medical nebulizer needed for Bran ch solution Wheezing or Shortness of Breath. albuterol 2020-0 Yes [id number] 2.5mg Inhale 3 [facility] 2.5 mg /3 2-28 mL every 4 ity of mL (0.083 00:00: (four) [place] %) 00 hours as Medical nebulizer needed for Bran ch solution Wheezing or Shortness of Breath. albuterol 2020-0 Yes [id number] 2.5mg Inhale 3 [facility] 2.5 mg /3 2-28 mL every 4 ity of mL (0.083 00:00: (four) [place] %) 00 hours as Medical nebulizer needed for Bran ch solution Wheezing or Shortness of Breath. albuterol 2020-0 Yes [id number] 2.5mg Inhale 3 [facility] 2.5 mg /3 2-28 mL every 4 ity of mL (0.083 00:00: (four) [place] %) 00 hours as Medical nebulizer needed for Bran ch solution Wheezing or Shortness of Breath. albuterol 2020-0 Yes [id number] 2.5mg Inhale 3 [facility] 2.5 mg /3 2-28 mL every 4 ity of mL (0.083 00:00: ([facility]) [place] %) 00 hours as Medical nebulizer needed for Bran ch solution Wheezing or Shortness of Breath. albuterol 2020-0 Yes [id number] 2.5mg Inhale 3 [facility] 2.5 mg /3 2-28 mL every 4 ity of mL (0.083 00:00: (four) [place] %) 00 hours as Medical nebulizer needed for Bran ch solution Wheezing or Shortness of Breath. albuterol 2020-0 Yes [id number] 2.5mg Inhale 3 [facility] 2.5 mg /3 2-28 mL every 4 ity of mL (0.083 00:00: (four) [place] %) 00 hours as Medical nebulizer needed for Bran ch solution Wheezing or Shortness of Breath. albuterol 2020-0 Yes [id number] 2.5mg Inhale 3 [facility] 2.5 mg /3 2-28 mL every 4 ity of mL (0.083 00:00: (four) [place] %) 00 hours as Medical nebulizer needed for Bran ch solution Wheezing or Shortness of Breath. albuterol 2020-0 Yes [id number] 2.5mg Inhale 3 [facility] 2.5 mg /3 2-28 mL every 4 ity of mL (0.083 00:00: (four) [place] %) 00 hours as Medical nebulizer needed for Bran ch solution Wheezing or Shortness of Breath. albuterol 2020-0 Yes [id number] 2.5mg Inhale 3 [facility] 2.5 mg /3 2-28 mL every 4 ity of mL (0.083 00:00: (four) [place] %) 00 hours as Medical nebulizer needed for Bran ch solution Wheezing or Shortness of Breath. albuterol 2020-0 Yes [id number] 2.5mg Inhale 3 [facility] 2.5 mg /3 2-28 mL every 4 ity of mL (0.083 00:00: (four) [place] %) 00 hours as Medical nebulizer needed for Bran ch solution Wheezing or Shortness of Breath. albuterol 2020-0 Yes [id number] 2.5mg Inhale 3 [facility] 2.5 mg /3 2-28 mL every 4 ity of mL (0.083 00:00: (four) [place] %) 00 hours as Medical nebulizer needed for Bran ch solution Wheezing or Shortness of Breath. albuterol 2020-0 Yes [id number] 2.5mg Inhale 3 [facility] 2.5 mg /3 2-28 mL every 4 ity of mL (0.083 00:00: (four) [place] %) 00 hours as Medical nebulizer needed for Bran ch solution Wheezing or Shortness of Breath. albuterol 2020-0 Yes [id number] 2.5mg Inhale 3 [facility] 2.5 mg /3 2-28 mL every 4 ity of mL (0.083 00:00: (four) [place] %) 00 hours as Medical nebulizer needed for Bran ch solution Wheezing or Shortness of Breath. albuterol 2020-0 Yes [id number] 2.5mg Inhale 3 [facility] 2.5 mg /3 2-28 mL every 4 ity of mL (0.083 00:00: (four) [place] %) 00 hours as Medical nebulizer needed for Bran ch solution Wheezing or Shortness of Breath. albuterol 2020-0 Yes [id number] 2.5mg Inhale 3 [facility] 2.5 mg /3 2-28 mL every 4 ity of mL (0.083 00:00: (four) [place] %) 00 hours as Medical nebulizer needed for Bran ch solution Wheezing or Shortness of Breath. albuterol 2020-0 Yes [id number] 2.5mg Inhale 3 [facility] 2.5 mg /3 2-28 mL every 4 ity of mL (0.083 00:00: ([facility]) [place] %) 00 hours as Medical nebulizer needed for Bran ch solution Wheezing or Shortness of Breath. albuterol 2020-0 Yes [id number] 2.5mg Inhale 3 [facility] 2.5 mg /3 2-28 mL every 4 ity of mL (0.083 00:00: ([facility]) [place] %) 00 hours as Medical nebulizer needed for Bran ch solution Wheezing or Shortness of Breath. albuterol 2020-0 Yes [id number] 2.5mg Inhale 3 [facility] 2.5 mg /3 2-28 mL every 4 ity of mL (0.083 00:00: ([facility]) [place] %) 00 hours as Medical nebulizer needed for Bran ch solution Wheezing or Shortness of Breath. albuterol 2020-0 Yes [id number] 2.5mg Inhale 3 [facility] 2.5 mg /3 2-28 mL every 4 ity of mL (0.083 00:00: ([facility]) [place] %) 00 hours as Medical nebulizer needed for Bran ch solution Wheezing or Shortness of Breath. albuterol 2020-0 Yes [id number] 2.5mg Inhale 3 [facility] 2.5 mg /3 2-28 mL every 4 ity of mL (0.083 00:00: ([facility]) [place] %) 00 hours as Medical nebulizer needed for Bran ch solution Wheezing or Shortness of Breath. albuterol 2020-0 Yes [id number] 2.5mg Inhale 3 [facility] 2.5 mg /3 2-28 mL every 4 ity of mL (0.083 00:00: ([facility]) [place] %) 00 hours as Medical nebulizer needed for Bran ch solution Wheezing or Shortness of Breath. albuterol 2020-0 Yes [id number] 2.5mg Inhale 3 [facility] 2.5 mg /3 2-28 mL every 4 ity of mL (0.083 00:00: ([facility]) [place] %) 00 hours as Medical nebulizer needed for Bran ch solution Wheezing or Shortness of Breath. albuterol 2020-0 Yes [id number] 2.5mg Inhale 3 [facility] 2.5 mg /3 2-28 mL every 4 ity of mL (0.083 00:00: ([facility]) [place] %) 00 hours as Medical nebulizer needed for Bran ch solution Wheezing or Shortness of Breath. albuterol 2020-0 Yes [id number] 2.5mg Inhale 3 [facility] 2.5 mg /3 2-28 mL every 4 ity of mL (0.083 00:00: (four) [place] %) 00 hours as Medical nebulizer needed for Bran ch solution Wheezing or Shortness of Breath. albuterol 2020-0 Yes [id number] 2.5mg Inhale 3 [facility] 2.5 mg /3 2-28 mL every 4 ity of mL (0.083 00:00: (four) [place] %) 00 hours as Medical nebulizer needed for Bran ch solution Wheezing or Shortness of Breath. albuterol 2020-0 Yes [id number] 2.5mg Inhale 3 [facility] 2.5 mg /3 2-28 mL every 4 ity of mL (0.083 00:00: (four) [place] %) 00 hours as Medical nebulizer needed for Bran ch solution Wheezing or Shortness of Breath. albuterol 2020-0 Yes [id number] 2.5mg Inhale 3 [facility] 2.5 mg /3 2-28 mL every 4 ity of mL (0.083 00:00: (four) [place] %) 00 hours as Medical nebulizer needed for Bran ch solution Wheezing or Shortness of Breath. albuterol 2020-0 Yes [id number] 2.5mg Inhale 3 [facility] 2.5 mg /3 2-28 mL every 4 ity of mL (0.083 00:00: (four) [place] %) 00 hours as Medical nebulizer needed for Bran ch solution Wheezing or Shortness of Breath. albuterol 2020-0 Yes [id number] 2.5mg Inhale 3 [facility] 2.5 mg /3 2-28 mL every 4 ity of mL (0.083 00:00: (four) [place] %) 00 hours as Medical nebulizer needed for Bran ch solution Wheezing or Shortness of Breath. albuterol 2020-0 Yes [id number] 2.5mg Inhale 3 [facility] 2.5 mg /3 2-28 mL every 4 ity of mL (0.083 00:00: (four) [place] %) 00 hours as Medical nebulizer needed for Bran ch solution Wheezing or Shortness of Breath. albuterol 2020-0 Yes [id number] 2.5mg Inhale 3 [facility] 2.5 mg /3 2-28 mL every 4 ity of mL (0.083 00:00: ([facility]) [place] %) 00 hours as Medical nebulizer needed for Bran ch solution Wheezing or Shortness of Breath. albuterol 2020-0 Yes [id number] 2.5mg Inhale 3 [facility] 2.5 mg /3 2-28 mL every 4 ity of mL (0.083 00:00: (four) [place] %) 00 hours as Medical nebulizer needed for Bran ch solution Wheezing or Shortness of Breath. albuterol 2020-0 Yes [id number] 2.5mg Inhale 3 [facility] 2.5 mg /3 2-28 mL every 4 ity of mL (0.083 00:00: ([facility]) [place] %) 00 hours as Medical nebulizer needed for Bran ch solution Wheezing or Shortness of Breath. albuterol 2020-0 Yes [id number] 2.5mg Inhale 3 [facility] 2.5 mg /3 2-28 mL every 4 ity of mL (0.083 00:00: ([facility]) [place] %) 00 hours as Medical nebulizer needed for Bran ch solution Wheezing or Shortness of Breath. albuterol 2020-0 Yes [id number] 2.5mg Inhale 3 [facility] 2.5 mg /3 2-28 mL every 4 ity of mL (0.083 00:00: ([facility]) [place] %) 00 hours as Medical nebulizer needed for Bran ch solution Wheezing or Shortness of Breath. albuterol 2020-0 Yes [id number] 2.5mg Inhale 3 [facility] 2.5 mg /3 2-28 mL every 4 ity of mL (0.083 00:00: ([facility]) [place] %) 00 hours as Medical nebulizer needed for Bran ch solution Wheezing or Shortness of Breath. albuterol 2020-0 Yes [id number] 2.5mg Inhale 3 [facility] 2.5 mg /3 2-28 mL every 4 ity of mL (0.083 00:00: (four) [place] %) 00 hours as Medical nebulizer needed for Bran ch solution Wheezing or Shortness of Breath. albuterol 2020-0 Yes [id number] 2.5mg Inhale 3 [facility] 2.5 mg /3 2-28 mL every 4 ity of mL (0.083 00:00: (four) [place] %) 00 hours as Medical nebulizer needed for Bran ch solution Wheezing or Shortness of Breath. albuterol 2020-0 Yes [id number] 2.5mg Inhale 3 [facility] 2.5 mg /3 2-28 mL every 4 ity of mL (0.083 00:00: (four) [place] %) 00 hours as Medical nebulizer needed for Bran ch solution Wheezing or Shortness of Breath. albuterol 2020-0 Yes [id number] 2.5mg Inhale 3 [facility] 2.5 mg /3 2-28 mL every 4 ity of mL (0.083 00:00: ([facility]) [place] %) 00 hours as Medical nebulizer needed for Bran ch solution Wheezing or Shortness of Breath. albuterol 2020-0 Yes [id number] 2.5mg Inhale 3 [facility] 2.5 mg /3 2-28 mL every 4 ity of mL (0.083 00:00: ([facility]) [place] %) 00 hours as Medical nebulizer needed for Bran ch solution Wheezing or Shortness of Breath. albuterol 2020-0 Yes [id number] 2.5mg Inhale 3 [facility] 2.5 mg /3 2-28 mL every 4 ity of mL (0.083 00:00: ([facility]) [place] %) 00 hours as Medical nebulizer needed for Bran ch solution Wheezing or Shortness of Breath. albuterol 2020-0 Yes [id number] 2.5mg Inhale 3 [facility] 2.5 mg /3 2-28 mL every 4 ity of mL (0.083 00:00: ([facility]) [place] %) 00 hours as Medical nebulizer needed for Bran ch solution Wheezing or Shortness of Breath. albuterol 2020-0 Yes [id number] 2.5mg Inhale 3 [facility] 2.5 mg /3 2-28 mL every 4 ity of mL (0.083 00:00: (four) [place] %) 00 hours as Medical nebulizer needed for Bran ch solution Wheezing or Shortness of Breath. albuterol 2020-0 Yes [id number] 2.5mg Inhale 3 [facility] 2.5 mg /3 2-28 mL every 4 ity of mL (0.083 00:00: ([facility]) [place] %) 00 hours as Medical nebulizer needed for Bran ch solution Wheezing or Shortness of Breath. albuterol 2020-0 Yes [id number] 2.5mg Inhale 3 [facility] 2.5 mg /3 2-28 mL every 4 ity of mL (0.083 00:00: (four) [place] %) 00 hours as Medical nebulizer needed for Bran ch solution Wheezing or Shortness of Breath. albuterol 2020-0 Yes [id number] 2.5mg Inhale 3 [facility] 2.5 mg /3 2-28 mL every 4 ity of mL (0.083 00:00: (four) [place] %) 00 hours as Medical nebulizer needed for Bran ch solution Wheezing or Shortness of Breath. albuterol 2020-0 Yes [id number] 2.5mg Inhale 3 [facility] 2.5 mg /3 2-28 mL every 4 ity of mL (0.083 00:00: (four) [place] %) 00 hours as Medical nebulizer needed for Bran ch solution Wheezing or Shortness of Breath. albuterol 2020-0 Yes [id number] 2.5mg Inhale 3 [facility] 2.5 mg /3 2-28 mL every 4 ity of mL (0.083 00:00: (four) [place] %) 00 hours as Medical nebulizer needed for Bran ch solution Wheezing or Shortness of Breath. azithromyci 2020-0 Yes [id number] 250mg Take 1 [facility] n 2-28 tablet by ity of (ZITHROMAX 00:00: mouth [place] Z-MANDO) 250 00 SEE-INSTRU Med ical mg tablet CTIONS. Branch Take 500 mg day 1, then 250 mg days 2 to 5. cefpodoxime 2020-0 Yes [id number] 200mg Take 1 [facility] 200 mg 2-28 tablet by ity of tablet 00:00: mouth 2 [place] 00 (two) Medical times Branch daily. predniSONE 2020-0 Yes [id number] 60mg Take 3 U nivers 20 mg 2-28 tablets by ity of tablet 00:00: mouth [place] 00 every Medical morning. Branch albuterol 2020-0 Yes [id number] 2.5mg Inhale 3 [facility] 2.5 mg /3 2-28 mL every 4 ity of mL (0.083 00:00: (four) [place] %) 00 hours as Medical nebulizer needed for Bran ch solution Wheezing or Shortness of Breath. azithromyci 2020-0 Yes [id number] 250mg Take 1 [facility] n 2-28 tablet by ity of (ZITHROMAX 00:00: mouth [place] Z-MANDO) 250 00 SEE-INSTRU Med ical mg tablet CTIONS. Branch Take 500 mg day 1, then 250 mg days 2 to 5. cefpodoxime 2020-0 Yes [id number] 200mg Take 1 [facility] 200 mg 2-28 tablet by ity of tablet 00:00: mouth 2 [place] 00 (two) Medical times Branch daily. predniSONE 2020-0 Yes [id number] 60mg Take 3 U nivers 20 mg 2-28 tablets by ity of tablet 00:00: mouth [place] 00 every Medical morning. Branch albuterol 2020-0 Yes [id number] 2.5mg Inhale 3 [facility] 2.5 mg /3 2-28 mL every 4 ity of mL (0.083 00:00: (four) [place] %) 00 hours as Medical nebulizer needed for Bran ch solution Wheezing or Shortness of Breath. azithromyci 2020-0 Yes [id number] 250mg Take 1 [facility] n 2-28 tablet by ity of (ZITHROMAX 00:00: mouth [place] Z-MANDO) 250 00 SEE-INSTRU Med ical mg tablet CTIONS. Branch Take 500 mg day 1, then 250 mg days 2 to 5. cefpodoxime 2020-0 Yes [id number] 200mg Take 1 [facility] 200 mg 2-28 tablet by ity of tablet 00:00: mouth 2 (two) Medical times Branch daily. predniSONE 2020-0 Yes [id number] 60mg Take 3 U nivers 20 mg 2-28 tablets by ity of tablet 00:00: mouth [place] 00 every Medical morning. Branch albuterol 2020-0 Yes [id number] 2.5mg Inhale 3 [facility] 2.5 mg /3 2-28 mL every 4 ity of mL (0.083 00:00: (four) [place] %) 00 hours as Medical nebulizer needed for Bran ch solution Wheezing or Shortness of Breath. azithromyci 2020-0 Yes [id number] 250mg Take 1 [facility] n 2-28 tablet by ity of (ZITHROMAX 00:00: mouth [place] Z-MANDO) 250 00 SEE-INSTRU Med ical mg tablet CTIONS. Branch Take 500 mg day 1, then 250 mg days 2 to 5. cefpodoxime 2020-0 Yes [id number] 200mg Take 1 [facility] 200 mg 2-28 tablet by ity of tablet 00:00: mouth 2 [place] 00 (two) Medical times Branch daily. predniSONE 2020-0 Yes [id number] 60mg Take 3 U nivers 20 mg 2-28 tablets by ity of tablet 00:00: mouth [place] 00 every Medical morning. Branch albuterol 2019-0 Yes [id number] 2.5mg Inhale 3 [facility] 2.5 mg /3 2-28 mL every 4 ity of mL (0.083 00:00: (four) [place] %) 00 hours as Medical nebulizer needed for Bran ch solution Wheezing or Shortness of Breath. albuterol 2020-0 Yes [id number] 2.5mg Inhale 3 [facility] 2.5 mg /3 2-28 mL every 4 ity of mL (0.083 00:00: (four) [place] %) 00 hours as Medical nebulizer needed for Bran ch solution Wheezing or Shortness of Breath. azithromyci 2019-0 2020- No [id number] 250mg Take 1 [facility] n 2-28 -24 tablet by ity of (ZITHROMAX 00:00: 00:00 mouth [place] Z-MANDO) 250 00 :00 SEE-INSTRU Med ical mg tablet CTIONS. Branch Take 500 mg day 1, then 250 mg days 2 to 5. cefpodoxime 2019-0 2020- No [id number] 200mg Take 1 [facility] 200 mg 2-28 -24 tablet by ity of tablet 00:00: 00:00 mouth 2 [place] 00 :00 (two) Medical times Branch daily. predniSONE 2019- 2020- No [id number] 60mg Take 3 [facility] 20 mg 2-28 -24 tablets by ity of tablet 00:00: 00:00 mouth [place] 00 :00 every Medical morning. Branch albuterol 2019- Yes [id number] 2{puff} Inhale 2 [facility] 90 2-22 Puffs ity of mcg/actuati 00:00: every 4 [place] as on inhaler 00 (four) Medical hours as Branch needed for Wheezing or Shortness of Breath. acetaminoph 2019-0 Yes [id number] 1/2 - 1 [facility] en-codeine 2-22 tab Every ity of 300-30 mg 00:00: 4hrs as [place] tablet 00 needed for Medical pain or Branch cough requiring narcotic inhalationa 2019-0 Yes [id number] Use as Univers l spacing 2-22 directed ity of device 00:00: [place] ([facility]) albuterol 2020-0 Yes [id number] 2{puff} Inhale 2 [facility] 90 2-22 Puffs ity of mcg/actuati 00:00: every 4 [place] as on inhaler 00 (four) Medical hours as Branch needed for Wheezing or Shortness of Breath. acetaminoph 2020-0 Yes [id number] 2 - 1 [facility] en-codeine 2-22 tab Every ity of 300-30 mg 00:00: 4hrs as [place] tablet 00 needed for Medical pain or Branch cough requiring narcotic inhalationa 2020-0 Yes [id number] Use as Univers l spacing 2-22 directed ity of device 00:00: [place] ([address]) albuterol 2020-0 Yes [id number] 2{puff} Inhale 2 [facility] 90 2-22 Puffs ity of mcg/actuati 00:00: every 4 [place] as on inhaler 00 (four) Medical hours as Branch needed for Wheezing or Shortness of Breath. acetaminoph 2020-0 Yes [id number] 2 - 1 [facility] en-codeine 2-22 tab Every ity of 300-30 mg 00:00: 4hrs as [place] tablet 00 needed for Medical pain or Branch cough requiring narcotic inhalationa 2020-0 Yes [id number] Use as [facility] l spacing 2-22 directed ity of device 00:00: [place] ([address]) albuterol 2020-0 Yes [id number] 2{puff} Inhale 2 [facility] 90 2-22 Puffs ity of mcg/actuati 00:00: every 4 [place] as on inhaler 00 (four) Medical hours as Branch needed for Wheezing or Shortness of Breath. acetaminoph 2020-0 Yes [id number] 2 - 1 [facility] en-codeine 2-22 tab Every ity of 300-30 mg 00:00: 4hrs as [place] tablet 00 needed for Medical pain or Branch cough requiring narcotic inhalationa 2020-0 Yes [id number] Use as [facility] l spacing 2-22 directed ity of device 00:00: [place] ([address]) albuterol 2020-0 Yes [id number] 2{puff} Inhale 2 [facility] 90 2-22 Puffs ity of mcg/actuati 00:00: every 4 [place] as on inhaler 00 (four) Medical hours as Branch needed for Wheezing or Shortness of Breath. acetaminoph 2020-0 Yes [id number] 2 - 1 [facility] en-codeine 2-22 tab Every ity of 300-30 mg 00:00: 4hrs as [place] tablet 00 needed for Medical pain or Branch cough requiring narcotic inhalationa 2020-0 Yes [id number] Use as [facility] l spacing 2-22 directed ity of device 00:00: [place] ([facility]) albuterol 2020-0 Yes [id number] 2{puff} Inhale 2 [facility] 90 2-22 Puffs ity of mcg/actuati 00:00: every 4 [place] as on inhaler 00 (four) Medical hours as Branch needed for Wheezing or Shortness of Breath. albuterol 2020-0 Yes [id number] 2{puff} Inhale 2 [facility] 90 2-22 Puffs ity of mcg/actuati 00:00: every 4 [place] as on inhaler 00 (four) Medical hours as Branch needed for Wheezing or Shortness of Breath. acetaminoph 2020-0 Yes [id number] 09/18 - [facility] en-codeine 2-22 tab Every ity of 300-30 mg 00:00: 4hrs as [place] tablet 00 needed for Medical pain or Branch cough requiring narcotic inhalationa 2020-0 Yes [id number] Use as Univers l spacing 2-22 directed ity of device 00:00: [place] ([facility] 00 [facility]) inhalationa 2020-0 Yes [id number] Use as Univers l spacing 2-22 directed ity of device 00:00: [place] ([facility]) albuterol 2020-0 Yes [id number] 2{puff} Inhale 2 [facility] 90 2-22 Puffs ity of mcg/actuati 00:00: every 4 [place] as on inhaler 00 (four) Medical hours as Branch needed for Wheezing or Shortness of Breath. acetaminoph 2020-0 Yes [id number] 2 - 1 [facility] en-codeine 2-22 tab Every ity of 300-30 mg 00:00: 4hrs as [place] tablet 00 needed for Medical pain or Branch cough requiring narcotic inhalationa 2020-0 Yes [id number] Use as [facility] l spacing 2-22 directed ity of device 00:00: [place] ([facility]) albuterol 2020-0 Yes [id number] 2{puff} Inhale 2 [facility] 90 2-22 Puffs ity of mcg/actuati 00:00: every 4 [place] as on inhaler 00 (four) Medical hours as Branch needed for Wheezing or Shortness of Breath. acetaminoph 2020-0 Yes [id number] 2 - 1 [facility] en-codeine 2-22 tab Every ity of 300-30 mg 00:00: 4hrs as [place] tablet 00 needed for Medical pain or Branch cough requiring narcotic inhalationa 2020-0 Yes [id number] Use as [facility] l spacing 2-22 directed ity of device 00:00: [place] ([facility]) albuterol 2020-0 Yes [id number] 2{puff} Inhale 2 [facility] 90 2-22 Puffs ity of mcg/actuati 00:00: every 4 [place] as on inhaler 00 (four) Medical hours as Branch needed for Wheezing or Shortness of Breath. acetaminoph 2020-0 Yes [id number] 2 - 1 [facility] en-codeine 2-22 tab Every ity of 300-30 mg 00:00: 4hrs as [place] tablet 00 needed for Medical pain or Branch cough requiring narcotic inhalationa 2020-0 Yes [id number] Use as [facility] l spacing 2-22 directed ity of device 00:00: [place] ([facility]) albuterol 2020-0 Yes [id number] 2{puff} Inhale 2 [facility] 90 2-22 Puffs ity of mcg/actuati 00:00: every 4 [place] on inhaler 00 (four) Medical hours as Branch needed for Wheezing or Shortness of Breath. acetaminoph 2020-0 Yes [id number] 2 - 1 [facility] en-codeine 2-22 tab Every ity of 300-30 mg 00:00: 4hrs as [place] tablet 00 needed for Medical pain or Branch cough requiring narcotic inhalationa 2020-0 Yes [id number] Use as [facility] l spacing 2-22 directed ity of device 00:00: [place] ([facility] 00 [facility]) albuterol 2020-0 Yes [id number] 2{puff} Inhale 2 [facility] 90 2-22 Puffs ity of mcg/actuati 00:00: every 4 [place] on inhaler 00 (four) Medical hours as Branch needed for Wheezing or Shortness of Breath. acetaminoph 2020-0 Yes [id number] 2 - 1 [facility] en-codeine 2-22 tab Every ity of 300-30 mg 00:00: 4hrs as [place] tablet 00 needed for Medical pain or Branch cough requiring narcotic inhalationa 2020-0 Yes [id number] Use as Univers l spacing 2-22 directed ity of device 00:00: [place] ([facility] 00 [facility]) albuterol 2020-0 Yes [id number] 2{puff} Inhale 2 [facility] 90 2-22 Puffs ity of mcg/actuati 00:00: every 4 [place] on inhaler 00 (four) Medical hours as Branch needed for Wheezing or Shortness of Breath. acetaminoph 2020-0 Yes [id number] 2 - 1 [facility] en-codeine 2-22 tab Every ity of 300-30 mg 00:00: 4hrs as [place] tablet 00 needed for Medical pain or Branch cough requiring narcotic inhalationa 2020-0 Yes [id number] Use as Univers l spacing 2-22 directed ity of device 00:00: [place] ([facility] 00 [facility]) albuterol 2020-0 Yes [id number] 2{puff} Inhale 2 [facility] 90 2-22 Puffs ity of mcg/actuati 00:00: every 4 [place] on inhaler 00 (four) Medical hours as Branch needed for Wheezing or Shortness of Breath. acetaminoph 2020-0 Yes [id number] 2 - 1 [facility] en-codeine 2-22 tab Every ity of 300-30 mg 00:00: 4hrs as [place] tablet 00 needed for Medical pain or Branch cough requiring narcotic inhalationa 2020-0 Yes [id number] Use as Univers l spacing 2-22 directed ity of device 00:00: [place] ([facility] 00 [facility]) albuterol 2020-0 Yes [id number] 2{puff} Inhale 2 [facility] 90 2-22 Puffs ity of mcg/actuati 00:00: every 4 [place] as on inhaler 00 (four) Medical hours as Branch needed for Wheezing or Shortness of Breath. acetaminoph 2020-0 Yes [id number] 2 - 1 [facility] en-codeine 2-22 tab Every ity of 300-30 mg 00:00: 4hrs as [place] tablet 00 needed for Medical pain or Branch cough requiring narcotic inhalationa 2020-0 Yes [id number] Use as [facility] l spacing 2-22 directed ity of device 00:00: [place] ([facility] 00 [facility]) albuterol 2020-0 Yes [id number] 2{puff} Inhale 2 [facility] 90 2-22 Puffs ity of mcg/actuati 00:00: every 4 [place] as on inhaler 00 (four) Medical hours as Branch needed for Wheezing or Shortness of Breath. acetaminoph 2020-0 Yes [id number] 2 - 1 [facility] en-codeine 2-22 tab Every ity of 300-30 mg 00:00: 4hrs as [place] tablet 00 needed for Medical pain or Branch cough requiring narcotic inhalationa 2020-0 Yes [id number] Use as Univers l spacing 2-22 directed ity of device 00:00: [place] ([facility]) albuterol 2020-0 Yes [id number] 2{puff} Inhale 2 [facility] 90 2-22 Puffs ity of mcg/actuati 00:00: every 4 [place] as on inhaler 00 (four) Medical hours as Branch needed for Wheezing or Shortness of Breath. acetaminoph 2020-0 Yes [id number] 2 - 1 [facility] en-codeine 2-22 tab Every ity of 300-30 mg 00:00: 4hrs as [place] tablet 00 needed for Medical pain or Branch cough requiring narcotic inhalationa 2020-0 Yes [id number] Use as Univers l spacing 2-22 directed ity of device 00:00: [place] ([facility] 00 [facility]) albuterol 2020-0 Yes [id number] 2{puff} Inhale 2 [facility] 90 2-22 Puffs ity of mcg/actuati 00:00: every 4 [place] as on inhaler 00 (four) Medical hours as Branch needed for Wheezing or Shortness of Breath. acetaminoph 2020-0 Yes [id number] 2 - 1 [facility] en-codeine 2-22 tab Every ity of 300-30 mg 00:00: 4hrs as [place] tablet 00 needed for Medical pain or Branch cough requiring narcotic inhalationa 2020-0 Yes [id number] Use as Univers l spacing 2-22 directed ity of device 00:00: [place] ([facility]) albuterol 2020-0 Yes [id number] 2{puff} Inhale 2 [facility] 90 2-22 Puffs ity of mcg/actuati 00:00: every 4 [place] as on inhaler 00 (four) Medical hours as Branch needed for Wheezing or Shortness of Breath. acetaminoph 2020-0 Yes [id number] 1/2 - 1 [facility] en-codeine 2-22 tab Every ity of 300-30 mg 00:00: 4hrs as [place] tablet 00 needed for Medical pain or Branch cough requiring narcotic inhalationa 2020-0 Yes [id number] Use as Univers l spacing 2-22 directed ity of device 00:00: [place] ([address]) albuterol 2020-0 Yes [id number] 2{puff} Inhale 2 [facility] 90 2-22 Puffs ity of mcg/actuati 00:00: every 4 [place] as on inhaler 00 (four) Medical hours as Branch needed for Wheezing or Shortness of Breath. acetaminoph 2020-0 Yes [id number] 2 - 1 [facility] en-codeine 2-22 tab Every ity of 300-30 mg 00:00: 4hrs as [place] tablet 00 needed for Medical pain or Branch cough requiring narcotic inhalationa 2020-0 Yes [id number] Use as Univers l spacing 2-22 directed ity of device 00:00: [place] ([address]) albuterol 2020-0 Yes [id number] 2{puff} Inhale 2 [facility] 90 2-22 Puffs ity of mcg/actuati 00:00: every 4 [place] as on inhaler 00 (four) Medical hours as Branch needed for Wheezing or Shortness of Breath. acetaminoph 2020-0 Yes [id number] 12 - 1 [facility] en-codeine 2-22 tab Every ity of 300-30 mg 00:00: 4hrs as [place] tablet 00 needed for Medical pain or Branch cough requiring narcotic inhalationa 2020-0 Yes [id number] Use as Univers l spacing 2-22 directed ity of device 00:00: [place] ([address]) albuterol 2020-0 Yes [id number] 2{puff} Inhale 2 [facility] 90 2-22 Puffs ity of mcg/actuati 00:00: every 4 [place] as on inhaler 00 (four) Medical hours as Branch needed for Wheezing or Shortness of Breath. acetaminoph 2020-0 Yes [id number] 2 - 1 [facility] en-codeine 2-22 tab Every ity of 300-30 mg 00:00: 4hrs as [place] tablet 00 needed for Medical pain or Branch cough requiring narcotic inhalationa 2020-0 Yes [id number] Use as Univers l spacing 2-22 directed ity of device 00:00: [place] ([facility] 00 [facility]) albuterol 2020-0 Yes [id number] 2{puff} Inhale 2 [facility] 90 2-22 Puffs ity of mcg/actuati 00:00: every 4 [place] as on inhaler 00 (four) Medical hours as Branch needed for Wheezing or Shortness of Breath. acetaminoph 2020-0 Yes [id number] 2 - 1 [facility] en-codeine 2-22 tab Every ity of 300-30 mg 00:00: 4hrs as [place] tablet 00 needed for Medical pain or Branch cough requiring narcotic inhalationa 2020-0 Yes [id number] Use as Univers l spacing 2-22 directed ity of device 00:00: [place] ([facility] 00 [facility]) albuterol 2020-0 Yes [id number] 2{puff} Inhale 2 [facility] 90 2-22 Puffs ity of mcg/actuati 00:00: every 4 [place] as on inhaler 00 (four) Medical hours as Branch needed for Wheezing or Shortness of Breath. acetaminoph 2020-0 Yes [id number] 2 - 1 [facility] en-codeine 2-22 tab Every ity of 300-30 mg 00:00: 4hrs as [place] tablet 00 needed for Medical pain or Branch cough requiring narcotic inhalationa 2020-0 Yes [id number] Use as Univers l spacing 2-22 directed ity of device 00:00: [place] ([facility] 00 [facility]) albuterol 2020-0 Yes [id number] 2{puff} Inhale 2 [facility] 90 2-22 Puffs ity of mcg/actuati 00:00: every 4 [place] as on inhaler 00 (four) Medical hours as Branch needed for Wheezing or Shortness of Breath. acetaminoph 2020-0 Yes [id number] 2 - 1 [facility] en-codeine 2-22 tab Every ity of 300-30 mg 00:00: 4hrs as [place] tablet 00 needed for Medical pain or Branch cough requiring narcotic inhalationa 2020-0 Yes [id number] Use as Univers l spacing 2-22 directed ity of device 00:00: [place] ([address]) albuterol 2020-0 Yes [id number] 2{puff} Inhale 2 [facility] 90 2-22 Puffs ity of mcg/actuati 00:00: every 4 [place] as on inhaler 00 (four) Medical hours as Branch needed for Wheezing or Shortness of Breath. acetaminoph 2020-0 Yes [id number] 2 - 1 [facility] en-codeine 2-22 tab Every ity of 300-30 mg 00:00: 4hrs as [place] tablet 00 needed for Medical pain or Branch cough requiring narcotic inhalationa 2020-0 Yes [id number] Use as [facility] l spacing 2-22 directed ity of device 00:00: [place] ([address]) albuterol 2020-0 Yes [id number] 2{puff} Inhale 2 [facility] 90 2-22 Puffs ity of mcg/actuati 00:00: every 4 [place] as on inhaler 00 (four) Medical hours as Branch needed for Wheezing or Shortness of Breath. inhalationa 2020-0 Yes [id number] Use as [facility] l spacing 2-22 directed ity of device 00:00: [place] ([address]) albuterol 2020-0 Yes [id number] 2{puff} Inhale 2 [facility] 90 2-22 Puffs ity of mcg/actuati 00:00: every 4 [facility] as on inhaler 00 (four) Medical hours as Branch needed for Wheezing or Shortness of Breath. inhalationa 2020-0 Yes [id number] Use as [facility] l spacing 2-22 directed ity of device 00:00: [place] ([address]) albuterol 2020-0 Yes [id number] 2{puff} Inhale 2 [facility] 90 2-22 Puffs ity of mcg/actuati 00:00: every 4 [facility] as on inhaler 00 (four) Medical hours as Branch needed for Wheezing or Shortness of Breath. inhalationa 2020-0 Yes [id number] Use as [facility] spacing 2-22 directed ity of device 00:00: [place] ([address]) albuterol 2020-0 Yes [id number] 2{puff} Inhale 2 [facility] 90 2-22 Puffs ity of mcg/actuati 00:00: every 4 [facility] on inhaler 00 (four) Medical hours as Branch needed for Wheezing or Shortness of Breath. inhalationa 2020-0 Yes [id number] Use as [facility] spacing 2-22 directed ity of device 00:00: [place] ([address]) albuterol 2020-0 Yes [id number] 2{puff} Inhale 2 [facility] 90 2-22 Puffs ity of mcg/actuati 00:00: every 4 [facility] on inhaler 00 (four) Medical hours as Branch needed for Wheezing or Shortness of Breath. inhalationa 2020-0 Yes [id number] Use as [facility] spacing 2-22 directed ity of device 00:00: [place] ([address]) albuterol 2020-0 Yes [id number] 2{puff} Inhale 2 [facility] 90 2-22 Puffs ity of mcg/actuati 00:00: every 4 [facility] on inhaler 00 (four) Medical hours as Branch needed for Wheezing or Shortness of Breath. inhalationa 2020-0 Yes [id number] Use as [facility] spacing 2-22 directed ity of device 00:00: [place] ([address]) albuterol 2020-0 Yes [id number] 2{puff} Inhale 2 [facility] 90 2-22 Puffs ity of mcg/actuati 00:00: every 4 [facility] on inhaler 00 (four) Medical hours as Branch needed for Wheezing or Shortness of Breath. inhalationa 2020-0 Yes [id number] Use as [facility] spacing 2-22 directed ity of device 00:00: [place] ([address]) albuterol 2020-0 Yes [id number] 2{puff} Inhale 2 [facility] 90 2-22 Puffs ity of mcg/actuati 00:00: every 4 [facility] inhaler 00 (four) Medical hours as Branch needed for Wheezing or Shortness of Breath. inhalationa 2020-0 Yes [id number] Use as [facility] spacing 2-22 directed ity of device 00:00: [place] ([address]) albuterol 2020-0 Yes [id number] 2{puff} Inhale 2 [facility] 90 2-22 Puffs ity of mcg/actuati 00:00: every 4 [facility] on inhaler 00 (four) Medical hours as Branch needed for Wheezing or Shortness of Breath. inhalationa 2020-0 Yes [id number] Use as [facility] spacing 2-22 directed ity of device 00:00: [place] ([address]) albuterol 2020-0 Yes [id number] 2{puff} Inhale 2 [facility] 90 2-22 Puffs ity of mcg/actuati 00:00: every 4 [facility] on inhaler 00 (four) Medical hours as Branch needed for Wheezing or Shortness of Breath. inhalationa 2020-0 Yes [id number] Use as [facility] spacing 2-22 directed ity of device 00:00: [place] ([address]) albuterol 2020-0 Yes [id number] 2{puff} Inhale 2 [facility] 90 2-22 Puffs ity of mcg/actuati 00:00: every 4 [facility] on inhaler 00 (four) Medical hours as Branch needed for Wheezing or Shortness of Breath. inhalationa 2020-0 Yes [id number] Use as [facility] spacing 2-22 directed ity of device 00:00: [place] ([address]) albuterol 2020-0 Yes [id number] 2{puff} Inhale 2 [facility] 90 2-22 Puffs ity of mcg/actuati 00:00: every 4 [facility] on inhaler 00 (four) Medical hours as Branch needed for Wheezing or Shortness of Breath. inhalationa 2020-0 Yes [id number] Use as [facility] spacing 2-22 directed ity of device 00:00: [place] ([address]) albuterol 2020-0 Yes [id number] 2{puff} Inhale 2 [facility] 90 2-22 Puffs ity of mcg/actuati 00:00: every 4 [facility] on inhaler 00 (four) Medical hours as Branch needed for Wheezing or Shortness of Breath. inhalationa 2020-0 Yes [id number] Use as [facility] spacing 2-22 directed ity of device 00:00: [place] ([address]) albuterol 2020-0 Yes [id number] 2{puff} Inhale 2 [facility] 90 2-22 Puffs ity of mcg/actuati 00:00: every 4 [facility] on inhaler 00 (four) Medical hours as Branch needed for Wheezing or Shortness of Breath. inhalationa 2020-0 Yes [id number] Use as [facility] spacing 2-22 directed ity of device 00:00: [place] ([address]) albuterol 2020-0 Yes [id number] 2{puff} Inhale 2 [facility] 90 2-22 Puffs ity of mcg/actuati 00:00: every 4 [facility] on inhaler 00 (four) Medical hours as Branch needed for Wheezing or Shortness of Breath. inhalationa 2020-0 Yes [id number] Use as [facility] l spacing 2-22 directed ity of device 00:00: [place] ([address]) albuterol 2020-0 Yes [id number] 2{puff} Inhale 2 [facility] 90 2-22 Puffs ity of mcg/actuati 00:00: every 4 [facility] on inhaler 00 (four) Medical hours as Branch needed for Wheezing or Shortness of Breath. inhalationa 2020-0 Yes [id number] Use as [facility] spacing 2-22 directed ity of device 00:00: [place] ([address]) albuterol 2020-0 Yes [id number] 2{puff} Inhale 2 [facility] 90 2-22 Puffs ity of mcg/actuati 00:00: every 4 [facility] on inhaler 00 (four) Medical hours as Branch needed for Wheezing or Shortness of Breath. inhalationa 2020-0 Yes [id number] Use as [facility] l spacing 2-22 directed ity of device 00:00: [place] ([address]) albuterol 2020-0 Yes [id number] 2{puff} Inhale 2 [facility] 90 2-22 Puffs ity of mcg/actuati 00:00: every 4 [facility] on inhaler 00 (four) Medical hours as Branch needed for Wheezing or Shortness of Breath. inhalationa 2020-0 Yes [id number] Use as [facility] l spacing 2-22 directed ity of device 00:00: [place] ([address]) albuterol 2020-0 Yes [id number] 2{puff} Inhale 2 [facility] 90 2-22 Puffs ity of mcg/actuati 00:00: every 4 [facility] on inhaler 00 (four) Medical hours as Branch needed for Wheezing or Shortness of Breath. inhalationa 2020-0 Yes [id number] Use as [facility] l spacing 2-22 directed ity of device 00:00: [place] ([address]) albuterol 2020-0 Yes [id number] 2{puff} Inhale 2 [facility] 90 2-22 Puffs ity of mcg/actuati 00:00: every 4 [facility] on inhaler 00 (four) Medical hours as Branch needed for Wheezing or Shortness of Breath. inhalationa 2020-0 Yes [id number] Use as [facility] l spacing 2-22 directed ity of device 00:00: [place] ([address]) albuterol 2020-0 Yes [id number] 2{puff} Inhale 2 [facility] 90 2-22 Puffs ity of mcg/actuati 00:00: every 4 [facility] on inhaler 00 (four) Medical hours as Branch needed for Wheezing or Shortness of Breath. inhalationa 2020-0 Yes [id number] Use as [facility] l spacing 2-22 directed ity of device 00:00: [place] ([address]) albuterol 2020-0 Yes [id number] 2{puff} Inhale 2 [facility] 90 2-22 Puffs ity of mcg/actuati 00:00: every 4 [facility] on inhaler 00 (four) Medical hours as Branch needed for Wheezing or Shortness of Breath. inhalationa 2020-0 Yes [id number] Use as [facility] l spacing 2-22 directed ity of device 00:00: [place] ([address]) albuterol 2020-0 Yes [id number] 2{puff} Inhale 2 [facility] 90 2-22 Puffs ity of mcg/actuati 00:00: every 4 [facility] on inhaler 00 (four) Medical hours as Branch needed for Wheezing or Shortness of Breath. inhalationa 2020-0 Yes [id number] Use as [facility] l spacing 2-22 directed ity of device 00:00: [place] ([address]) albuterol 2020-0 Yes [id number] 2{puff} Inhale 2 [facility] 90 2-22 Puffs ity of mcg/actuati 00:00: every 4 [facility] on inhaler 00 (four) Medical hours as Branch needed for Wheezing or Shortness of Breath. inhalationa 2020-0 Yes [id number] Use as [facility] spacing 2-22 directed ity of device 00:00: [place] ([address]) albuterol 2020-0 Yes [id number] 2{puff} Inhale 2 [facility] 90 2-22 Puffs ity of mcg/actuati 00:00: every 4 [facility] on inhaler 00 (four) Medical hours as Branch needed for Wheezing or Shortness of Breath. inhalationa 2020-0 Yes [id number] Use as [facility] l spacing 2-22 directed ity of device 00:00: [place] ([address]) albuterol 2020-0 Yes [id number] 2{puff} Inhale 2 [facility] 90 2-22 Puffs ity of mcg/actuati 00:00: every 4 [facility] on inhaler 00 (four) Medical hours as Branch needed for Wheezing or Shortness of Breath. inhalationa 2020-0 Yes [id number] Use as [facility] l spacing 2-22 directed ity of device 00:00: [place] ([address]) albuterol 2020-0 Yes [id number] 2{puff} Inhale 2 [facility] 90 2-22 Puffs ity of mcg/actuati 00:00: every 4 [facility] on inhaler 00 (four) Medical hours as Branch needed for Wheezing or Shortness of Breath. inhalationa 2020-0 Yes [id number] Use as [facility] l spacing 2-22 directed ity of device 00:00: [place] ([address]) albuterol 2020-0 Yes [id number] 2{puff} Inhale 2 [facility] 90 2-22 Puffs ity of mcg/actuati 00:00: every 4 [facility] on inhaler 00 (four) Medical hours as Branch needed for Wheezing or Shortness of Breath. inhalationa 2020-0 Yes [id number] Use as [facility] l spacing 2-22 directed ity of device 00:00: [place] ([address]) albuterol 2020-0 Yes [id number] 2{puff} Inhale 2 [facility] 90 2-22 Puffs ity of mcg/actuati 00:00: every 4 [facility] on inhaler 00 (four) Medical hours as Branch needed for Wheezing or Shortness of Breath. inhalationa 2020-0 Yes [id number] Use as [facility] l spacing 2-22 directed ity of device 00:00: [place] ([address]) albuterol 2020-0 Yes [id number] 2{puff} Inhale 2 [facility] 90 2-22 Puffs ity of mcg/actuati 00:00: every 4 [facility] on inhaler 00 (four) Medical hours as Branch needed for Wheezing or Shortness of Breath. inhalationa 2020-0 Yes [id number] Use as [facility] l spacing 2-22 directed ity of device 00:00: [place] ([address]) albuterol 2020-0 Yes [id number] 2{puff} Inhale 2 [facility] 90 2-22 Puffs ity of mcg/actuati 00:00: every 4 [facility] on inhaler 00 (four) Medical hours as Branch needed for Wheezing or Shortness of Breath. inhalationa 2020-0 Yes [id number] Use as [facility] l spacing 2-22 directed ity of device 00:00: [place] ([address]) albuterol 2020-0 Yes [id number] 2{puff} Inhale 2 [facility] 90 2-22 Puffs ity of mcg/actuati 00:00: every 4 [facility] on inhaler 00 (four) Medical hours as Branch needed for Wheezing or Shortness of Breath. inhalationa 2020-0 Yes [id number] Use as [facility] l spacing 2-22 directed ity of device 00:00: [place] ([address]) albuterol 2020-0 Yes [id number] 2{puff} Inhale 2 [facility] 90 2-22 Puffs ity of mcg/actuati 00:00: every 4 [facility] on inhaler 00 (four) Medical hours as Branch needed for Wheezing or Shortness of Breath. inhalationa 2020-0 Yes [id number] Use as [facility] l spacing 2-22 directed ity of device 00:00: [place] ([address]) albuterol 2020-0 Yes [id number] 2{puff} Inhale 2 [facility] 90 2-22 Puffs ity of mcg/actuati 00:00: every 4 [facility] on inhaler 00 (four) Medical hours as Branch needed for Wheezing or Shortness of Breath. inhalationa 2020-0 Yes [id number] Use as [facility] l spacing 2-22 directed ity of device 00:00: [place] ([address]) albuterol 2020-0 Yes [id number] 2{puff} Inhale 2 [facility] 90 2-22 Puffs ity of mcg/actuati 00:00: every 4 [facility] on inhaler 00 (four) Medical hours as Branch needed for Wheezing or Shortness of Breath. inhalationa 2020-0 Yes [id number] Use as [facility] l spacing 2-22 directed ity of device 00:00: [place] ([address]) albuterol 2020-0 Yes [id number] 2{puff} Inhale 2 [facility] 90 2-22 Puffs ity of mcg/actuati 00:00: every 4 [facility] on inhaler 00 (four) Medical hours as Branch needed for Wheezing or Shortness of Breath. inhalationa 2020-0 Yes [id number] Use as [facility] l spacing 2-22 directed ity of device 00:00: [place] ([address]) albuterol 2020-0 Yes [id number] 2{puff} Inhale 2 [facility] 90 2-22 Puffs ity of mcg/actuati 00:00: every 4 [facility] on inhaler 00 (four) Medical hours as Branch needed for Wheezing or Shortness of Breath. inhalationa 2020-0 Yes [id number] Use as [facility] l spacing 2-22 directed ity of device 00:00: [place] ([address]) albuterol 2020-0 Yes [id number] 2{puff} Inhale 2 [facility] 90 2-22 Puffs ity of mcg/actuati 00:00: every 4 [facility] on inhaler 00 (four) Medical hours as Branch needed for Wheezing or Shortness of Breath. inhalationa 2020-0 Yes [id number] Use as [facility] l spacing 2-22 directed ity of device 00:00: [place] ([address]) albuterol 2020-0 Yes [id number] 2{puff} Inhale 2 [facility] 90 2-22 Puffs ity of mcg/actuati 00:00: every 4 [facility] on inhaler 00 (four) Medical hours as Branch needed for Wheezing or Shortness of Breath. inhalationa 2020-0 Yes [id number] Use as [facility] l spacing 2-22 directed ity of device 00:00: [place] ([address]) albuterol 2020-0 Yes [id number] 2{puff} Inhale 2 [facility] 90 2-22 Puffs ity of mcg/actuati 00:00: every 4 [facility] on inhaler 00 (four) Medical hours as Branch needed for Wheezing or Shortness of Breath. inhalationa 2020-0 Yes [id number] Use as [facility] l spacing 2-22 directed ity of device 00:00: [place] ([address]) albuterol 2020-0 Yes [id number] 2{puff} Inhale 2 [facility] 90 2-22 Puffs ity of mcg/actuati 00:00: every 4 [facility] on inhaler 00 (four) Medical hours as Branch needed for Wheezing or Shortness of Breath. inhalationa 2020-0 Yes [id number] Use as [facility] l spacing 2-22 directed ity of device 00:00: [place] ([address]) albuterol 2020-0 Yes [id number] 2{puff} Inhale 2 [facility] 90 2-22 Puffs ity of mcg/actuati 00:00: every 4 [facility] on inhaler 00 (four) Medical hours as Branch needed for Wheezing or Shortness of Breath. inhalationa 2020-0 Yes [id number] Use as [facility] l spacing 2-22 directed ity of device 00:00: [place] ([address]) albuterol 2020-0 Yes [id number] 2{puff} Inhale 2 [facility] 90 2-22 Puffs ity of mcg/actuati 00:00: every 4 [facility] on inhaler 00 (four) Medical hours as Branch needed for Wheezing or Shortness of Breath. inhalationa 2020-0 Yes [id number] Use as [facility] l spacing 2-22 directed ity of device 00:00: [place] ([address]) albuterol 2020-0 Yes [id number] 2{puff} Inhale 2 [facility] 90 2-22 Puffs ity of mcg/actuati 00:00: every 4 [facility] on inhaler 00 (four) Medical hours as Branch needed for Wheezing or Shortness of Breath. inhalationa 2020-0 Yes [id number] Use as [facility] l spacing 2-22 directed ity of device 00:00: [place] ([address]) albuterol 2020-0 Yes [id number] 2{puff} Inhale 2 [facility] 90 2-22 Puffs ity of mcg/actuati 00:00: every 4 [facility] on inhaler 00 (four) Medical hours as Branch needed for Wheezing or Shortness of Breath. inhalationa 2020-0 Yes [id number] Use as [facility] l spacing 2-22 directed ity of device 00:00: [place] ([address]) albuterol 2020-0 Yes [id number] 2{puff} Inhale 2 [facility] 90 2-22 Puffs ity of mcg/actuati 00:00: every 4 [facility] on inhaler 00 (four) Medical hours as Branch needed for Wheezing or Shortness of Breath. inhalationa 2020-0 Yes [id number] Use as [facility] l spacing 2-22 directed ity of device 00:00: [place] ([address]) albuterol 2020-0 Yes [id number] 2{puff} Inhale 2 [facility] 90 2-22 Puffs ity of mcg/actuati 00:00: every 4 [facility] on inhaler 00 (four) Medical hours as Branch needed for Wheezing or Shortness of Breath. inhalationa 2020-0 Yes [id number] Use as [facility] l spacing 2-22 directed ity of device 00:00: [place] ([address]) albuterol 2020-0 Yes [id number] 2{puff} Inhale 2 [facility] 90 2-22 Puffs ity of mcg/actuati 00:00: every 4 [facility] on inhaler 00 (four) Medical hours as Branch needed for Wheezing or Shortness of Breath. inhalationa 2020-0 Yes [id number] Use as [facility] l spacing 2-22 directed ity of device 00:00: [place] ([address]) albuterol 2020-0 Yes [id number] 2{puff} Inhale 2 [facility] 90 2-22 Puffs ity of mcg/actuati 00:00: every 4 [facility] on inhaler 00 (four) Medical hours as Branch needed for Wheezing or Shortness of Breath. inhalationa 2020-0 Yes [id number] Use as [facility] l spacing 2-22 directed ity of device 00:00: [place] ([address]) albuterol 2020-0 Yes [id number] 2{puff} Inhale 2 [facility] 90 2-22 Puffs ity of mcg/actuati 00:00: every 4 [facility] as on inhaler 00 (four) Medical hours as Branch needed for Wheezing or Shortness of Breath. inhalationa 2020-0 Yes [id number] Use as [facility] l spacing 2-22 directed ity of device 00:00: [place] ([address]) albuterol 2020-0 Yes [id number] 2{puff} Inhale 2 [facility] 90 2-22 Puffs ity of mcg/actuati 00:00: every 4 [facility] on inhaler 00 (four) Medical hours as Branch needed for Wheezing or Shortness of Breath. inhalationa 2020-0 Yes [id number] Use as [facility] l spacing 2-22 directed ity of device 00:00: [place] ([address]) albuterol 2020-0 Yes [id number] 2{puff} Inhale 2 [facility] 90 2-22 Puffs ity of mcg/actuati 00:00: every 4 [facility] as on inhaler 00 (four) Medical hours as Branch needed for Wheezing or Shortness of Breath. inhalationa 2020-0 Yes [id number] Use as [facility] l spacing 2-22 directed ity of device 00:00: [place] ([address]) albuterol 2020-0 Yes [id number] 2{puff} Inhale 2 [facility] 90 2-22 Puffs ity of mcg/actuati 00:00: every 4 [facility] as on inhaler 00 (four) Medical hours as Branch needed for Wheezing or Shortness of Breath. inhalationa 2020-0 Yes [id number] Use as [facility] l spacing 2-22 directed ity of device 00:00: [place] ([address]) albuterol 2020-0 Yes [id number] 2{puff} Inhale 2 [facility] 90 2-22 Puffs ity of mcg/actuati 00:00: every 4 [facility] as on inhaler 00 (four) Medical hours as Branch needed for Wheezing or Shortness of Breath. inhalationa 2020-0 Yes [id number] Use as [facility] l spacing 2-22 directed ity of device 00:00: [place] ([address]) albuterol 2020-0 Yes [id number] 2{puff} Inhale 2 [facility] 90 2-22 Puffs ity of mcg/actuati 00:00: every 4 [facility] on inhaler 00 (four) Medical hours as Branch needed for Wheezing or Shortness of Breath. inhalationa 2020-0 Yes [id number] Use as [facility] l spacing 2-22 directed ity of device 00:00: [place] ([address]) albuterol 2020-0 Yes [id number] 2{puff} Inhale 2 [facility] 90 2-22 Puffs ity of mcg/actuati 00:00: every 4 [facility] as on inhaler 00 (four) Medical hours as Branch needed for Wheezing or Shortness of Breath. inhalationa 2020-0 Yes [id number] Use as [facility] l spacing 2-22 directed ity of device 00:00: [place] ([address]) albuterol 2020-0 Yes [id number] 2{puff} Inhale 2 [facility] 90 2-22 Puffs ity of mcg/actuati 00:00: every 4 [facility] as on inhaler 00 (four) Medical hours as Branch needed for Wheezing or Shortness of Breath. inhalationa 2020-0 Yes [id number] Use as [facility] l spacing 2-22 directed ity of device 00:00: [place] ([address]) albuterol 2020-0 Yes [id number] 2{puff} Inhale 2 [facility] 90 2-22 Puffs ity of mcg/actuati 00:00: every 4 [facility] as on inhaler 00 (four) Medical hours as Branch needed for Wheezing or Shortness of Breath. inhalationa 2020-0 Yes [id number] Use as [facility] l spacing 2-22 directed ity of device 00:00: [place] ([address]) albuterol 2020-0 Yes [id number] 2{puff} Inhale 2 [facility] 90 2-22 Puffs ity of mcg/actuati 00:00: every 4 [facility] on inhaler 00 (four) Medical hours as Branch needed for Wheezing or Shortness of Breath. inhalationa 2020-0 Yes [id number] Use as [facility] l spacing 2-22 directed ity of device 00:00: [place] ([address]) albuterol 2020-0 Yes [id number] 2{puff} Inhale 2 [facility] 90 2-22 Puffs ity of mcg/actuati 00:00: every 4 [facility] as on inhaler 00 (four) Medical hours as Branch needed for Wheezing or Shortness of Breath. inhalationa 2020-0 Yes [id number] Use as [facility] l spacing 2-22 directed ity of device 00:00: [place] ([address]) albuterol 2020-0 Yes [id number] 2{puff} Inhale 2 [facility] 90 2-22 Puffs ity of mcg/actuati 00:00: every 4 [facility] as on inhaler 00 (four) Medical hours as Branch needed for Wheezing or Shortness of Breath. inhalationa 2020-0 Yes [id number] Use as [facility] l spacing 2-22 directed ity of device 00:00: [place] ([address]) albuterol 2020-0 Yes [id number] 2{puff} Inhale 2 [facility] 90 2-22 Puffs ity of mcg/actuati 00:00: every 4 [facility] as on inhaler 00 (four) Medical hours as Branch needed for Wheezing or Shortness of Breath. inhalationa 2020-0 Yes [id number] Use as [facility] l spacing 2-22 directed ity of device 00:00: [place] ([address]) albuterol 2020-0 Yes [id number] 2{puff} Inhale 2 [facility] 90 2-22 Puffs ity of mcg/actuati 00:00: every 4 [facility] as on inhaler 00 (four) Medical hours as Branch needed for Wheezing or Shortness of Breath. inhalationa 2020-0 Yes [id number] Use as [facility] l spacing 2-22 directed ity of device 00:00: [place] ([address]) albuterol 2020-0 Yes [id number] 2{puff} Inhale 2 [facility] 90 2-22 Puffs ity of mcg/actuati 00:00: every 4 [facility] as on inhaler 00 (four) Medical hours as Branch needed for Wheezing or Shortness of Breath. inhalationa 2020-0 Yes [id number] Use as [facility] l spacing 2-22 directed ity of device 00:00: [place] ([address]) albuterol 2020-0 Yes [id number] 2{puff} Inhale 2 [facility] 90 2-22 Puffs ity of mcg/actuati 00:00: every 4 [facility] as on inhaler 00 (four) Medical hours as Branch needed for Wheezing or Shortness of Breath. inhalationa 2020-0 Yes [id number] Use as [facility] l spacing 2-22 directed ity of device 00:00: [place] ([address]) albuterol 2020-0 Yes [id number] 2{puff} Inhale 2 [facility] 90 2-22 Puffs ity of mcg/actuati 00:00: every 4 [facility] as on inhaler 00 (four) Medical hours as Branch needed for Wheezing or Shortness of Breath. inhalationa 2020-0 Yes [id number] Use as [facility] l spacing 2-22 directed ity of device 00:00: [place] ([address]) albuterol 2020-0 Yes [id number] 2{puff} Inhale 2 [facility] 90 2-22 Puffs ity of mcg/actuati 00:00: every 4 [facility] as on inhaler 00 (four) Medical hours as Branch needed for Wheezing or Shortness of Breath. inhalationa 2020-0 Yes [id number] Use as [facility] l spacing 2-22 directed ity of device 00:00: [place] ([address]) albuterol 2020-0 Yes [id number] 2{puff} Inhale 2 [facility] 90 2-22 Puffs ity of mcg/actuati 00:00: every 4 [facility] as on inhaler 00 (four) Medical hours as Branch needed for Wheezing or Shortness of Breath. inhalationa 2020-0 Yes [id number] Use as [facility] l spacing 2-22 directed ity of device 00:00: [place] ([address]) albuterol 2020-0 Yes [id number] 2{puff} Inhale 2 [facility] 90 2-22 Puffs ity of mcg/actuati 00:00: every 4 [facility] as on inhaler 00 (four) Medical hours as Branch needed for Wheezing or Shortness of Breath. inhalationa 2020-0 Yes [id number] Use as [facility] l spacing 2-22 directed ity of device 00:00: [place] ([address]) albuterol 2020-0 Yes [id number] 2{puff} Inhale 2 [facility] 90 2-22 Puffs ity of mcg/actuati 00:00: every 4 [facility] as on inhaler 00 (four) Medical hours as Branch needed for Wheezing or Shortness of Breath. inhalationa 2020-0 Yes [id number] Use as [facility] l spacing 2-22 directed ity of device 00:00: [place] ([address]) albuterol 2020-0 Yes [id number] 2{puff} Inhale 2 [facility] 90 2-22 Puffs ity of mcg/actuati 00:00: every 4 [facility] as on inhaler 00 (four) Medical hours as Branch needed for Wheezing or Shortness of Breath. inhalationa 2020-0 Yes [id number] Use as [facility] l spacing 2-22 directed ity of device 00:00: [place] ([address]) albuterol 2020-0 Yes [id number] 2{puff} Inhale 2 [facility] 90 2-22 Puffs ity of mcg/actuati 00:00: every 4 [facility] as on inhaler 00 (four) Medical hours as Branch needed for Wheezing or Shortness of Breath. inhalationa 2020-0 Yes [id number] Use as [facility] l spacing 2-22 directed ity of device 00:00: [place] ([address]) albuterol 2020-0 Yes [id number] 2{puff} Inhale 2 [facility] 90 2-22 Puffs ity of mcg/actuati 00:00: every 4 [facility] as on inhaler 00 (four) Medical hours as Branch needed for Wheezing or Shortness of Breath. inhalationa 2020-0 Yes [id number] Use as [facility] l spacing 2-22 directed ity of device 00:00: [place] ([address]) albuterol 2020-0 Yes [id number] 2{puff} Inhale 2 [facility] 90 2-22 Puffs ity of mcg/actuati 00:00: every 4 [facility] as on inhaler 00 (four) Medical hours as Branch needed for Wheezing or Shortness of Breath. inhalationa 2020-0 Yes [id number] Use as [facility] l spacing 2-22 directed ity of device 00:00: [place] ([address]) albuterol 2020-0 Yes [id number] 2{puff} Inhale 2 [facility] 90 2-22 Puffs ity of mcg/actuati 00:00: every 4 [facility] as on inhaler 00 (four) Medical hours as Branch needed for Wheezing or Shortness of Breath. inhalationa 2020-0 Yes [id number] Use as [facility] l spacing 2-22 directed ity of device 00:00: [place] ([address]) albuterol 2020-0 Yes [id number] 2{puff} Inhale 2 [facility] 90 2-22 Puffs ity of mcg/actuati 00:00: every 4 [facility] as on inhaler 00 (four) Medical hours as Branch needed for Wheezing or Shortness of Breath. inhalationa 2020-0 Yes [id number] Use as [facility] l spacing 2-22 directed ity of device 00:00: [place] ([address]) albuterol 2020-0 Yes [id number] 2{puff} Inhale 2 [facility] 90 2-22 Puffs ity of mcg/actuati 00:00: every 4 [place] as on inhaler 00 (four) Medical hours as Branch needed for Wheezing or Shortness of Breath. inhalationa 2020-0 Yes [id number] Use as [facility] l spacing 2-22 directed ity of device 00:00: [place] ([address]) albuterol 2020-0 Yes [id number] 2{puff} Inhale 2 [facility] 90 2-22 Puffs ity of mcg/actuati 00:00: every 4 [place] as on inhaler 00 (four) Medical hours as Branch needed for Wheezing or Shortness of Breath. inhalationa 2020-0 Yes [id number] Use as [facility] l spacing 2-22 directed ity of device 00:00: [place] ([address]) albuterol 2020-0 Yes [id number] 2{puff} Inhale 2 [facility] 90 2-22 Puffs ity of mcg/actuati 00:00: every 4 [place] as on inhaler 00 (four) Medical hours as Branch needed for Wheezing or Shortness of Breath. inhalationa 2020-0 Yes [id number] Use as [facility] l spacing 2-22 directed ity of device 00:00: [place] ([address]) albuterol 2020-0 Yes [id number] 2{puff} Inhale 2 [facility] 90 2-22 Puffs ity of mcg/actuati 00:00: every 4 [place] [facility] on inhaler 00 (four) Medical hours as Branch needed for Wheezing or Shortness of Breath. inhalationa 2020-0 Yes [id number] Use as [facility] l spacing 2-22 directed ity of device 00:00: [place] ([address]) albuterol 2020-0 Yes [id number] 2{puff} Inhale 2 [facility] 90 2-22 Puffs ity of mcg/actuati 00:00: every 4 [place] [facility] on inhaler 00 (four) Medical hours as Branch needed for Wheezing or Shortness of Breath. inhalationa 2020-0 Yes [id number] Use as [facility] l spacing 2-22 directed ity of device 00:00: [place] ([address]) albuterol 2020-0 Yes [id number] 2{puff} Inhale 2 [facility] 90 2-22 Puffs ity of mcg/actuati 00:00: every 4 [place] [facility] on inhaler 00 (four) Medical hours as Branch needed for Wheezing or Shortness of Breath. inhalationa 2020-0 Yes [id number] Use as [facility] l spacing 2-22 directed ity of device 00:00: [place] ([address]) albuterol 2020-0 Yes [id number] 2{puff} Inhale 2 [facility] 90 2-22 Puffs ity of mcg/actuati 00:00: every 4 [place] [facility] on inhaler 00 (four) Medical hours as Branch needed for Wheezing or Shortness of Breath. inhalationa 2020-0 Yes [id number] Use as [facility] l spacing 2-22 directed ity of device 00:00: [place] ([address]) albuterol 2020-0 Yes [id number] 2{puff} Inhale 2 [facility] 90 2-22 Puffs ity of mcg/actuati 00:00: every 4 [place] [facility] on inhaler 00 (four) Medical hours as Branch needed for Wheezing or Shortness of Breath. inhalationa 2020-0 Yes [id number] Use as [facility] l spacing 2-22 directed ity of device 00:00: [place] ([address]) albuterol 2020-0 Yes [id number] 2{puff} Inhale 2 [facility] 90 2-22 Puffs ity of mcg/actuati 00:00: every 4 [place] [facility] on inhaler 00 (four) Medical hours as Branch needed for Wheezing or Shortness of Breath. inhalationa 2020-0 Yes [id number] Use as [facility] l spacing 2-22 directed ity of device 00:00: [place] ([address]) albuterol 2020-0 Yes [id number] 2{puff} Inhale 2 [facility] 90 2-22 Puffs ity of mcg/actuati 00:00: every 4 [place] [facility] on inhaler 00 (four) Medical hours as Branch needed for Wheezing or Shortness of Breath. inhalationa 2020-0 Yes [id number] Use as [facility] l spacing 2-22 directed ity of device 00:00: [place] ([address]) albuterol 2020-0 Yes [id number] 2{puff} Inhale 2 [facility] 90 2-22 Puffs ity of mcg/actuati 00:00: every 4 [place] [facility] on inhaler 00 (four) Medical hours as Branch needed for Wheezing or Shortness of Breath. inhalationa 2020-0 Yes [id number] Use as [facility] l spacing 2-22 directed ity of device 00:00: [place] ([address]) albuterol 2020-0 Yes [id number] 2{puff} Inhale 2 [facility] 90 2-22 Puffs ity of mcg/actuati 00:00: every 4 [place] [facility] on inhaler 00 (four) Medical hours as Branch needed for Wheezing or Shortness of Breath. inhalationa 2020-0 Yes [id number] Use as [facility] l spacing 2-22 directed ity of device 00:00: [place] ([address]) albuterol 2020-0 Yes [id number] 2{puff} Inhale 2 [facility] 90 2-22 Puffs ity of mcg/actuati 00:00: every 4 [place] as on inhaler 00 (four) Medical hours as Branch needed for Wheezing or Shortness of Breath. acetaminoph 2020-0 Yes [id number] 2 - 1 [facility] en-codeine 2-22 tab Every ity of 300-30 mg 00:00: 4hrs as [place] tablet 00 needed for Medical pain or Branch cough requiring narcotic inhalationa 2020-0 Yes [id number] Use as [facility] l spacing 2-22 directed ity of device 00:00: [place] ([facility] 00 [facility]) albuterol 2020-0 Yes [id number] 2{puff} Inhale 2 [facility] 90 2-22 Puffs ity of mcg/actuati 00:00: every 4 [place] as on inhaler 00 (four) Medical hours as Branch needed for Wheezing or Shortness of Breath. acetaminoph 2020-0 Yes [id number] 2 - 1 [facility] en-codeine 2-22 tab Every ity of 300-30 mg 00:00: 4hrs as [place] tablet 00 needed for Medical pain or Branch cough requiring narcotic inhalationa 2020-0 Yes [id number] Use as [facility] l spacing 2-22 directed ity of device 00:00: [place] ([facility] 00 [facility]) albuterol 2020-0 Yes [id number] 2{puff} Inhale 2 [facility] 90 2-22 Puffs ity of mcg/actuati 00:00: every 4 [place] as on inhaler 00 (four) Medical hours as Branch needed for Wheezing or Shortness of Breath. acetaminoph 2020-0 Yes [id number] 2 - 1 [facility] en-codeine 2-22 tab Every ity of 300-30 mg 00:00: 4hrs as [place] tablet 00 needed for Medical pain or Branch cough requiring narcotic inhalationa 2020-0 Yes [id number] Use as [facility] l spacing 2-22 directed ity of device 00:00: [place] ([facility] 00 [facility]) albuterol 2020-0 Yes [id number] 2{puff} Inhale 2 [facility] 90 2-22 Puffs ity of mcg/actuati 00:00: every 4 [place] as on inhaler 00 (four) Medical hours as Branch needed for Wheezing or Shortness of Breath. acetaminoph 2020-0 Yes [id number] 2 - 1 [facility] en-codeine 2-22 tab Every ity of 300-30 mg 00:00: 4hrs as [place] tablet 00 needed for Medical pain or Branch cough requiring narcotic inhalationa 2020-0 Yes [id number] Use as [facility] l spacing 2-22 directed ity of device 00:00: [place] ([address]) albuterol 2020-0 Yes [id number] 2{puff} Inhale 2 [facility] 90 2-22 Puffs ity of mcg/actuati 00:00: every 4 [place] as on inhaler 00 (four) Medical hours as Branch needed for Wheezing or Shortness of Breath. acetaminoph 2020-0 Yes [id number] 2 - 1 [facility] en-codeine 2-22 tab Every ity of 300-30 mg 00:00: 4hrs as [place] tablet 00 needed for Medical pain or Branch cough requiring narcotic inhalationa 2020-0 Yes [id number] Use as [facility] l spacing 2-22 directed ity of device 00:00: [place] ([address]) albuterol 2020-0 Yes [id number] 2{puff} Inhale 2 [facility] 90 2-22 Puffs ity of mcg/actuati 00:00: every 4 [place] as on inhaler 00 (four) Medical hours as Branch needed for Wheezing or Shortness of Breath. acetaminoph 2020-0 Yes [id number] 2 - 1 [facility] en-codeine 2-22 tab Every ity of 300-30 mg 00:00: 4hrs as [place] tablet 00 needed for Medical pain or Branch cough requiring narcotic inhalationa 2020-0 Yes [id number] Use as [facility] l spacing 2-22 directed ity of device 00:00: [place] ([address]) albuterol 2020-0 Yes [id number] 2{puff} Inhale 2 [facility] 90 2-22 Puffs ity of mcg/actuati 00:00: every 4 [place] as on inhaler 00 (four) Medical hours as Branch needed for Wheezing or Shortness of Breath. acetaminoph 2020-0 Yes [id number] 2 - 1 [facility] en-codeine 2-22 tab Every ity of 300-30 mg 00:00: 4hrs as [place] tablet 00 needed for Medical pain or Branch cough requiring narcotic inhalationa 2020-0 Yes [id number] Use as [facility] l spacing 2-22 directed ity of device 00:00: [place] ([facility] 00 [facility]) albuterol 2020-0 Yes [id number] 2{puff} Inhale 2 [facility] 90 2-22 Puffs ity of mcg/actuati 00:00: every 4 [place] as on inhaler 00 (four) Medical hours as Branch needed for Wheezing or Shortness of Breath. acetaminoph 2020-0 Yes [id number] 1/2 - 1 [facility] en-codeine 2-22 tab Every ity of 300-30 mg 00:00: 4hrs as [place] tablet 00 needed for Medical pain or Branch cough requiring narcotic inhalationa 2020-0 Yes [id number] Use as [facility] l spacing 2-22 directed ity of device 00:00: [place] (OPT[facility]AMBE 00 [facility]) acetaminoph 2020-0 2020- No [id number] /2 - 1 [facility] en-codeine 2-22 09-10 tab Every ity of 300-30 mg 00:00: 00:00 4hrs as [place] tablet 00 :00 needed for Medical pain or Branch cough requiring narcotic tiZANidine 2020-0 Yes [id number] 4mg Take 1-2 Univers 4 mg tablet 2-13 tablets by it y of 00:00: mouth [place] 00 every 8 Medical (eight) Branch hours as needed (muscle pain or spasm). AMLODIPINE 2020-0 Yes [id number] TAKE 1 U nivers 2.5 mg 2-13 TABLET BY ity of tablet 00:00: MOUTH [place] 00 EVERY DAY Medical Branch tiZANidine 2020-0 Yes [id number] 4mg Take 1-2 Univers 4 mg tablet 2-13 tablets by it y of 00:00: mouth [place] 00 every 8 Medical (eight) Branch hours as needed (muscle pain or spasm). AMLODIPINE 2020-0 Yes [id number] TAKE 1 U nivers 2.5 mg 2-13 TABLET BY ity of tablet 00:00: MOUTH [place] 00 EVERY DAY Medical Branch tiZANidine 2020-0 Yes [id number] 4mg Take 1-2 Univers 4 mg tablet 2-13 tablets by it y of 00:00: mouth [place] 00 every 8 Medical (eight) Branch hours as needed (muscle pain or spasm). AMLODIPINE 2020-0 Yes [id number] TAKE 1 U nivers 2.5 mg 2-13 TABLET BY ity of tablet 00:00: MOUTH [place] 00 EVERY DAY Medical Branch tiZANidine 2020-0 Yes [id number] 4mg Take 1-2 [facility] 4 mg tablet 2-13 tablets by it y of 00:00: mouth [place] 00 every 8 Medical (eight) Branch hours as needed (muscle pain or spasm). AMLODIPINE 2020-0 Yes [id number] TAKE 1 U nivers 2.5 mg 2-13 TABLET BY ity of tablet 00:00: MOUTH 00 EVERY DAY Medical Branch tiZANidine 2020-0 Yes [id number] 4mg Take 1-2 Univers 4 mg tablet 2-13 tablets by it y of 00:00: mouth [place] 00 every 8 Medical (eight) Branch hours as needed (muscle pain or spasm). AMLODIPINE 2020-0 Yes [id number] TAKE 1 U nivers 2.5 mg 2-13 TABLET BY ity of tablet 00:00: MOUTH 00 EVERY DAY Medical Branch tiZANidine 2020-0 Yes [id number] 4mg Take 1-2 [facility] 4 mg tablet 2-13 tablets by it y of 00:00: mouth 00 every 8 Medical (eight) Branch hours as needed (muscle pain or spasm). AMLODIPINE 2020-0 Yes [id number] TAKE 1 U nivers 2.5 mg 2-13 TABLET BY ity of tablet 00:00: MOUTH 00 EVERY DAY Medical Branch tiZANidine 2020-0 Yes [id number] 4mg Take 1-2 Univers 4 mg tablet 2-13 tablets by it y of 00:00: mouth [place] 00 every 8 Medical (eight) Branch hours as needed (muscle pain or spasm). AMLODIPINE 2020-0 Yes [id number] TAKE 1 U nivers 2.5 mg 2-13 TABLET BY ity of tablet 00:00: MOUTH 00 EVERY DAY Medical Branch tiZANidine 2020-0 Yes [id number] 4mg Take 1-2 Univers 4 mg tablet 2-13 tablets by it y of 00:00: mouth [place] 00 every 8 Medical (eight) Branch hours as needed (muscle pain or spasm). AMLODIPINE 2020-0 Yes [id number] TAKE 1 U nivers 2.5 mg 2-13 TABLET BY ity of tablet 00:00: MOUTH 00 EVERY DAY Medical Branch tiZANidine 2020-0 Yes [id number] 4mg Take 1-2 Univers 4 mg tablet 2-13 tablets by it y of 00:00: mouth [place] 00 every 8 Medical (eight) Branch hours as needed (muscle pain or spasm). AMLODIPINE 2020-0 Yes [id number] TAKE 1 U nivers 2.5 mg 2-13 TABLET BY ity of tablet 00:00: MOUTH [place] 00 EVERY DAY Medical Branch tiZANidine 2020-0 Yes [id number] 4mg Take 1-2 Univers 4 mg tablet 2-13 tablets by it y of 00:00: mouth [place] 00 every 8 Medical (eight) Branch hours as needed (muscle pain or spasm). AMLODIPINE 2020-0 Yes [id number] TAKE 1 U nivers 2.5 mg 2-13 TABLET BY ity of tablet 00:00: MOUTH [place] 00 EVERY DAY Medical Branch tiZANidine 2020-0 Yes [id number] 4mg Take 1-2 Univers 4 mg tablet 2-13 tablets by it y of 00:00: mouth [place] 00 every 8 Medical (eight) Branch hours as needed (muscle pain or spasm). AMLODIPINE 2020-0 Yes [id number] TAKE 1 U nivers 2.5 mg 2-13 TABLET BY ity of tablet 00:00: MOUTH [place] 00 EVERY DAY Medical Branch tiZANidine 2020-0 Yes [id number] 4mg Take 1-2 Univers 4 mg tablet 2-13 tablets by it y of 00:00: mouth [place] 00 every 8 Medical (eight) Branch hours as needed (muscle pain or spasm). AMLODIPINE 2020-0 Yes [id number] TAKE 1 U nivers 2.5 mg 2-13 TABLET BY ity of tablet 00:00: MOUTH [place] 00 EVERY DAY Medical Branch AMLODIPINE 2020-0 Yes [id number] TAKE 1 U nivers 2.5 mg 2-13 TABLET BY ity of tablet 00:00: MOUTH [place] 00 EVERY DAY Medical Branch AMLODIPINE 2020-0 Yes [id number] TAKE 1 U nivers 2.5 mg 2-13 TABLET BY ity of tablet 00:00: MOUTH [place] 00 EVERY DAY Medical Branch AMLODIPINE 2020-0 Yes [id number] TAKE 1 U nivers 2.5 mg 2-13 TABLET BY ity of tablet 00:00: MOUTH [place] 00 EVERY DAY Medical Branch AMLODIPINE 2020-0 Yes [id number] TAKE 1 U nivers 2.5 mg 2-13 TABLET BY ity of tablet 00:00: MOUTH [place] 00 EVERY DAY Medical Branch AMLODIPINE 2020-0 Yes [id number] TAKE 1 U nivers 2.5 mg 2-13 TABLET BY ity of tablet 00:00: MOUTH 00 EVERY DAY Medical Branch AMLODIPINE 2020-0 Yes [id number] TAKE 1 U nivers 2.5 mg 2-13 TABLET BY ity of tablet 00:00: MOUTH 00 EVERY DAY Medical Branch AMLODIPINE 2020-0 Yes [id number] TAKE 1 U nivers 2.5 mg 2-13 TABLET BY ity of tablet 00:00: MOUTH 00 EVERY DAY Medical Branch AMLODIPINE 2020-0 Yes [id number] TAKE 1 U [facility]ivers 2.5 mg 2-13 TABLET BY ity of tablet 00:00: MOUTH 00 EVERY DAY Medical Branch AMLODIPINE 2020-0 Yes [id number] TAKE 1 U nivers 2.5 mg 2-13 TABLET BY ity of tablet 00:00: MOUTH 00 EVERY DAY Medical Branch AMLODIPINE 2020-0 Yes [id number] TAKE 1 U nivers 2.5 mg 2-13 TABLET BY ity of tablet 00:00: [facility] 00 EVERY DAY Medical Branch AMLODIPINE 2020-0 Yes [id number] TAKE 1 U nivers 2.5 mg 2-13 TABLET BY ity of tablet 00:00: MOUTH 00 EVERY DAY Medical Branch AMLODIPINE 2020-0 Yes [id number] TAKE 1 U nivers 2.5 mg 2-13 TABLET BY ity of tablet 00:00: [facility] 00 EVERY DAY Medical Branch AMLODIPINE 2020-0 Yes [id number] TAKE 1 U nivers 2.5 mg 2-13 TABLET BY ity of tablet 00:00: [facility] 00 EVERY DAY Medical Branch AMLODIPINE 2020-0 Yes [id number] TAKE 1 U nivers 2.5 mg 2-13 TABLET BY ity of tablet 00:00: [facility] 00 EVERY DAY Medical Branch AMLODIPINE 2020-0 Yes [id number] TAKE 1 U nivers 2.5 mg 2-13 TABLET BY ity of tablet 00:00: MOUTH 00 EVERY DAY Medical Branch AMLODIPINE 2020-0 Yes [id number] TAKE 1 U nivers 2.5 mg 2-13 TABLET BY ity of tablet 00:00: [facility] 00 EVERY DAY Medical Branch AMLODIPINE 2020-0 Yes [id number] TAKE 1 U nivers 2.5 mg 2-13 TABLET BY ity of tablet 00:00: [facility] 00 EVERY DAY Medical Branch tiZANidine 2020-0 Yes [id number] 4mg Take 1-2 Univers 4 mg tablet 2-13 tablets by it y of 00:00: mouth [place] 00 every 8 Medical (eight) Branch hours as needed (muscle pain or spasm). amLODIPine 2020-0 Yes [id number] 2.5mg Take 1 Univers 2.5 mg 2-13 tablet by ity of tablet 00:00: mouth [place] 00 daily. Medical Branch tiZANidine 2020-0 Yes [id number] 4mg Take 1-2 Univers 4 mg tablet 2-13 tablets by it y of 00:00: mouth [place] 00 every 8 Medical (eight) Branch hours as needed (muscle pain or spasm). AMLODIPINE 2020-0 Yes [id number] TAKE 1 U nivers 2.5 mg 2-13 TABLET BY ity of tablet 00:00: MOUTH [place] 00 EVERY DAY Medical Branch tiZANidine 2020-0 Yes [id number] 4mg Take 1-2 Univers 4 mg tablet 2-13 tablets by it y of 00:00: mouth [place] 00 every 8 Medical (eight) Branch hours as needed (muscle pain or spasm). AMLODIPINE 2020-0 Yes [id number] TAKE 1 U nivers 2.5 mg 2-13 TABLET BY ity of tablet 00:00: MOUTH [place] 00 EVERY DAY Medical Branch tiZANidine 2020-0 Yes [id number] 4mg Take 1-2 Univers 4 mg tablet 2-13 tablets by it y of 00:00: mouth [place] 00 every 8 Medical (eight) Branch hours as needed (muscle pain or spasm). AMLODIPINE 2020-0 Yes [id number] TAKE 1 U nivers 2.5 mg 2-13 TABLET BY ity of tablet 00:00: MOUTH [place] 00 EVERY DAY Medical Branch tiZANidine 2020-0 Yes [id number] 4mg Take 1-2 Univers 4 mg tablet 2-13 tablets by it y of 00:00: mouth [place] 00 every 8 Medical (eight) Branch hours as needed (muscle pain or spasm). AMLODIPINE 2020-0 Yes [id number] TAKE 1 U nivers 2.5 mg 2-13 TABLET BY ity of tablet 00:00: MOUTH [place] 00 EVERY DAY Medical Branch tiZANidine 2020-0 Yes [id number] 4mg Take 1-2 Univers 4 mg tablet 2-13 tablets by it y of 00:00: mouth [place] 00 every 8 Medical (eight) Branch hours as needed (muscle pain or spasm). tiZANidine 2020-0 Yes [id number] 4mg Take 1-2 [facility] 4 mg tablet 2-13 tablets by it y of 00:00: mouth [place] 00 every 8 Medical (eight) Branch hours as needed (muscle pain or spasm). tiZANidine 2020-0 Yes [id number] 4mg Take 1-2 [facility] 4 mg tablet 2-13 tablets by it y of 00:00: mouth [place] 00 every 8 Medical (eight) Branch hours as needed (muscle pain or spasm). AMLODIPINE 2020-0 Yes [id number] TAKE 1 U nivers 2.5 mg 2-13 TABLET BY ity of tablet 00:00: MOUTH [place] 00 EVERY DAY Medical Branch tiZANidine 2020-0 Yes [id number] 4mg Take 1-2 Univers 4 mg tablet 2-13 tablets by it y of 00:00: mouth [place] 00 every 8 Medical (eight) Branch hours as needed (muscle pain or spasm). AMLODIPINE 2020-0 Yes [id number] TAKE 1 U nivers 2.5 mg 2-13 TABLET BY ity of tablet 00:00: MOUTH [place] 00 EVERY DAY Medical Branch tiZANidine 2020-0 Yes [id number] 4mg Take 1-2 [facility] 4 mg tablet 2-13 tablets by it y of 00:00: mouth [place] 00 every 8 Medical (eight) Branch hours as needed (muscle pain or spasm). AMLODIPINE 2020-0 Yes [id number] TAKE 1 U nivers 2.5 mg 2-13 TABLET BY ity of tablet 00:00: MOUTH [place] 00 EVERY DAY Medical Branch tiZANidine 2020-0 Yes [id number] 4mg Take 1-2 Univers 4 mg tablet 2-13 tablets by it y of 00:00: mouth [place] 00 every 8 Medical (eight) Branch hours as needed (muscle pain or spasm). AMLODIPINE 2020-0 Yes [id number] TAKE 1 U nivers 2.5 mg 2-13 TABLET BY ity of tablet 00:00: MOUTH [place] 00 EVERY DAY Medical Branch tiZANidine 2020-0 Yes [id number] 4mg Take 1-2 Univers 4 mg tablet 2-13 tablets by it y of 00:00: mouth [place] 00 every 8 Medical (eight) Branch hours as needed (muscle pain or spasm). AMLODIPINE 2020-0 Yes [id number] TAKE 1 U nivers 2.5 mg 2-13 TABLET BY ity of tablet 00:00: MOUTH [place] 00 EVERY DAY Medical Branch tiZANidine 2020-0 Yes [id number] 4mg Take 1-2 Univers 4 mg tablet 2-13 tablets by it y of 00:00: mouth [place] 00 every 8 Medical (eight) Branch hours as needed (muscle pain or spasm). AMLODIPINE 2020-0 Yes [id number] TAKE 1 U nivers 2.5 mg 2-13 TABLET BY ity of tablet 00:00: MOUTH [place] 00 EVERY DAY Medical Branch tiZANidine 2020-0 Yes [id number] 4mg Take 1-2 Univers 4 mg tablet 2-13 tablets by it y of 00:00: mouth [place] 00 every 8 Medical (eight) Branch hours as needed (muscle pain or spasm). AMLODIPINE 2020-0 Yes [id number] TAKE 1 U nivers 2.5 mg 2-13 TABLET BY ity of tablet 00:00: MOUTH [place] 00 EVERY DAY Medical Branch AMLODIPINE 2020-0 2020- No [id number] TAKE 1 Univers 2.5 mg 2-13 - TABLET BY ity of tablet 00:00: 00:00 MOUTH [place] 00 :00 EVERY DAY Medical Branch AMLODIPINE 2020-0 2020- No [id number] TAKE 1 Univers 2.5 mg 2-13 - TABLET BY ity of tablet 00:00: 00:00 MOUTH [place] 00 :00 EVERY DAY Medical Branch tiZANidine 2020-0 2020- No [id number] 4mg Take 1-2 Univers 4 mg tablet 2-13 05-07 tablets by i ty of 00:00: 00:00 mouth [place] 00 :00 every 8 Medical (eight) Branch hours as needed (muscle pain or spasm). amLODIPine 2020-0 2020- No [id number] 2.5mg Take 1 Univers 2.5 mg 2-13 -13 tablet by ity of tablet 00:00: 00:00 mouth [place] 00 :00 daily. Medical Branch amLODIPine 2020-0 2020- No [id number] 2.5mg Take 1 Univers 2.5 mg 2-13 -13 tablet by ity of tablet 00:00: 00:00 mouth [place] 00 :00 daily. Medical Branch amLODIPine 2020-0 2020- No [id number] 2.5mg Take 1 Univers 2.5 mg 2-13 -13 tablet by ity of tablet 00:00: 00:00 mouth [place] 00 :00 daily. Medical Branch alcaftadine 2020-[address] in [facility]ivers (LASTACAFT) 1-06 each eye. ity of 0.25 % Drop 18:01: [place] [address] Medical Branch CYCLOSPORIN 2020-[address] in U nivers E (RESTASIS 1-06 each eye. ity of OPHTHALMIC) 18:01: [place] [address] Medical Branch ASCORBATE 2020-0 Yes Take by [facility] ers CALCIUM 1-06 mouth. ity of (VITAMIN C 18:01: [place] ORAL) 24 Medical Branch DOCOSAHEXAN 2020-0 Yes Take by [facility] [place] OIC 1-06 mouth. ity of ACID/EPA 18:01: [place] (FISH OIL 24 Medical ORAL) Branch vitamin E 2020-0 Yes 1000U Take 1,000 U nivers 1,000 unit 1-06 Units by ity o f capsule 18:01: mouth [place] 24 daily. Medical Branch Magnesium 2020-0 Yes Take by Univ ers 250 mg Tab 1-06 mouth. ity of 18:01: [place] [address] Medical Branch vitamin B-6 2020-0 Yes 100mg Take 100 U nivers (VITAMIN 1-06 mg by ity of B-6) 100 mg 18:01: mouth [place] tablet 24 daily. Medical Branch CALCIUM 2020-0 Yes [facility] CARBONATE/V 1-06 mouth. ity of ITAMIN D3 18:01: [place] (VITAMIN 24 Medical D-3 ORAL) Branch alcaftadine 2020-[address] in U nivers (LASTACAFT) 1-06 each eye. ity of 0.25 % Drop 18:01: [place] [address] Medical Branch CYCLOSPORIN 2020-[address] in U nivers E (RESTASIS 1-06 each eye. ity of OPHTHALMIC) 18:01: [place] [address] Medical Branch ASCORBATE 2020-0 Yes Take by [facility] ers CALCIUM 1-06 mouth. ity of (VITAMIN C 18:01: [place] ORAL) 24 Medical Branch DOCOSAHEXAN 2020-0 Yes Take by [facility] [place] OIC 1-06 mouth. ity of ACID/EPA 18:01: [place] (FISH OIL 24 Medical ORAL) Branch vitamin E 2020-0 Yes 1000U Take 1,000 U nivers 1,000 unit 1-06 Units by ity o f capsule 18:01: mouth [place] 24 daily. Medical Branch Magnesium 2020-0 Yes Take by Univ ers 250 mg Tab 1-06 mouth. ity of 18:01: [place] [address] Medical Branch vitamin B-6 2020-0 Yes 100mg Take 100 U nivers (VITAMIN 1-06 mg by ity of B-6) 100 mg 18:01: mouth [place] tablet 24 daily. Medical Branch CALCIUM 2020-0 Yes Take by Univer s CARBONATE/V 1-06 mouth. ity of ITAMIN D3 18:01: [place] (VITAMIN 24 Medical D-3 ORAL) Branch alcaftadine [...] OIC 1-06 mouth. ity of ACID/EPA 18:01: [place] (FISH OIL 24 Medical ORAL) Branch vitamin [...] 1-06 mouth. ity of ITAMIN D3 18:01: [place] (VITAMIN 24 Medical D-3 ORAL) Branch alcaftadine [...] OIC 1-06 mouth. ity of ACID/EPA 18:01: [place] (FISH OIL 24 Medical ORAL) Branch vitamin [...] 1-06 mouth. ity of ITAMIN D3 18:01: [place] (VITAMIN 24 Medical D-3 ORAL) Branch alcaftadine [...] OIC 1-06 mouth. ity of ACID/EPA 18:01: [place] (FISH OIL 24 Medical ORAL) Branch vitamin [...] 1-06 mouth. ity of ITAMIN D3 18:01: [place] (VITAMIN 24 Medical D-3 ORAL) Branch alcaftadine [...] OIC 1-06 mouth. ity of ACID/EPA 18:01: [place] (FISH OIL 24 Medical ORAL) Branch vitamin [...] 1-06 mouth. ity of ITAMIN D3 18:01: [place] (VITAMIN Medical D-3 ORAL) Branch alcaftadine 2020-0 [...] OIC 1-06 mouth. ity of ACID/EPA 18:: [place] (FISH OIL 24 Medical ORAL) Branch vitamin [...] 1-06 mouth. ity of ITAMIN D3 18:01: [place] (VITAMIN 24 Medical D-3 ORAL) Branch alcaftadine [...] OIC 1-06 mouth. ity of ACID/EPA 18:01: [place] (FISH OIL 24 Medical ORAL) Branch vitamin E 2020-0 Yes 1000U Take 1,000 U nivers 1,000 unit 1-06 Units by ity o f capsule 18:01: mouth [place] 24 daily. Medical Branch Magnesium 2020-0 Yes Take by [facility] ers 250 mg Tab 1-06 mouth. ity of 18:01: Medical Branch vitamin B-6 2020-0 Yes 100mg Take 100 U nivers (VITAMIN 1-06 mg by ity of B-6) 100 mg 18:01: mouth [place] tablet 24 daily. Medical Branch CALCIUM 2020-0 Yes [facility] CARBONATE/V 1-06 mouth. ity of ITAMIN D3 18:01: [place] (VITAMIN 24 Medical D-3 ORAL) Branch alcaftadine [...] OIC 1-06 mouth. ity of ACID/EPA 18:01: [place] (FISH OIL 24 Medical ORAL) Branch vitamin [...] 1-06 mouth. ity of ITAMIN D3 18:01: [place] (VITAMIN 24 Medical D-3 ORAL) Branch alcaftadine [...] OIC 1-06 mouth. ity of ACID/EPA 18:01: [place] (FISH OIL 24 Medical ORAL) Branch vitamin [...] 1-06 mouth. ity of ITAMIN D3 18:01: [place] (VITAMIN 24 Medical D-3 ORAL) Branch alcaftadine [...] OIC 1-06 mouth. ity of ACID/EPA 18:01: [place] (FISH OIL 24 Medical ORAL) Branch vitamin [...] CARBONATE/V 1-06 mouth. ity of ITAMIN D3 18:: [place] (VITAMIN 24 Medical D-3 ORAL) Branch alcaftadine [...] OIC 1-06 mouth. ity of ACID/EPA 18:01: [place] (FISH OIL 24 Medical ORAL) Branch vitamin [...] 1-06 mouth. ity of ITAMIN D3 18:01: [place] (VITAMIN 24 Medical D-3 ORAL) Branch alcaftadine [...] OIC 1-06 mouth. ity of ACID/EPA 18:01: [place] (FISH OIL 24 Medical ORAL) Branch vitamin [...] 1-06 mouth. ity of ITAMIN D3 18:01: [place] (VITAMIN 24 Medical D-3 ORAL) Branch alcaftadine [...] OIC 1-06 mouth. ity of ACID/EPA 18:01: [place] (FISH OIL 24 Medical ORAL) Branch vitamin [...] [place] tablet 24 daily. Medical Branch CALCIUM 0 Yes Take by [facility] CARBONATE/V 1-06 mouth. ity of ITAMIN D3 18:01: [place] (VITAMIN 24 Medical D-3 ORAL) Branch TRITERENE 2018-09 Yes [id number] TAKE 2 [facility] -HYDROCHLOR 2-02 TABLETS BY it y of OTHIAZID 00:00: MOUTH [place] 37.5-25 mg 00 DAILY. [facility] [id number] [facility]KE 2 [facility] -HYDROCHLOR 2-02 TABLETS BY it y of OTHIAZID 00:00: MOUTH [place] 37.5-25 mg 00 DAILY. [facility] Yes [id number] TAKE 2 [facility] -HYDROCHLOR 2-02 TABLETS BY it y of OTHIAZID 00:00: MOUTH [place] 37.5-25 mg 00 DAILY. Medical tablet [facility]-09 Yes [id number] TAKE 2 [facility] -HYDROCHLOR 2-02 TABLETS BY it y of OTHIAZID 00:00: MOUTH [place] 37.5-25 mg 00 DAILY. Medical tablet [facility] 2018-09 Yes [id number] TAKE 2 [facility] -HYDROCHLOR 2-02 TABLETS BY it y of OTHIAZID 00:00: MOUTH [place] 37.5-25 mg 00 DAILY. [facility] [id number] TAKE 2 [facility] -HYDROCHLOR 2-02 TABLETS BY it y of OTHIAZID 00:00: MOUTH [place] 37.5-25 mg 00 DAILY. Medical tablet Branch TRITERENE 2018-09 Yes [id number] TAKE 2 [facility] -HYDROCHLOR 2-02 TABLETS BY it y of OTHIAZID 00:00: MOUTH [place] 37.5-25 mg 00 DAILY. Medical tablet Branch TRITERENE 2018-09 Yes [id number] TAKE 2 [facility] -HYDROCHLOR 2-02 TABLETS BY it y of OTHIAZID 00:00: MOUTH [place] 37.5-25 mg 00 DAILY. [facility] [id number] TAKE 2 [facility] -HYDROCHLOR 2-02 TABLETS BY it y of OTHIAZID 00:00: MOUTH [place] 37.5-25 mg 00 DAILY. Medical tablet [facility] 2018-09 Yes [id number] TAKE 2 [facility] -HYDROCHLOR 2-02 TABLETS BY it y of OTHIAZID 00:00: MOUTH [place] 37.5-25 mg 00 DAILY. [facility] Yes [id number] TAKE 2 [facility] -HYDROCHLOR 2-02 TABLETS BY it y of OTHIAZID 00:00: MOUTH [place] 37.5-25 mg 00 DAILY. Medical tablet [facility] 2018-09 Yes [id number] TAKE 2 [facility] -HYDROCHLOR 2-02 TABLETS BY it y of OTHIAZID 00:00: MOUTH [place] 37.5-25 mg 00 DAILY. [facility] Yes [id number] TAKE 2 [facility] -HYDROCHLOR 2-02 TABLETS BY it y of OTHIAZID 00:00: MOUTH [place] 37.5-25 mg 00 DAILY. Medical tablet [facility] 2018-09 Yes [id number] TAKE 2 [facility] -HYDROCHLOR 2-02 TABLETS BY it y of OTHIAZID 00:00: MOUTH [place] 37.5-25 mg 00 DAILY. Medical tablet [facility] 2018-09 Yes [id number] TAKE 2 [facility] -HYDROCHLOR 2-02 TABLETS BY it y of OTHIAZID 00:00: MOUTH [place] 37.5-25 mg 00 DAILY. Medical tablet Branch [facility] 2018-09 Yes [id number] TAKE 2 [facility] -HYDROCHLOR 2-02 TABLETS BY it y of OTHIAZID 00:00: MOUTH [place] 37.5-25 mg 00 DAILY. Medical tablet [facility] 2018-09 Yes [id number] TAKE 2 [facility] -HYDROCHLOR 2-02 TABLETS BY it y of OTHIAZID 00:00: MOUTH [place] 37.5-25 mg 00 DAILY. [facility] Yes [id number] TAKE 2 [facility] -HYDROCHLOR 2-02 TABLETS BY it y of OTHIAZID 00:00: MOUTH [place] 37.5-25 mg 00 DAILY. [facility] Yes [id number] TAKE 2 [facility] -HYDROCHLOR 2-02 TABLETS BY it y of OTHIAZID 00:00: MOUTH [place] 37.5-25 mg 00 DAILY. [facility] Yes [id number] TAKE 2 [facility] -HYDROCHLOR 2-02 TABLETS BY it y of OTHIAZID 00:00: MOUTH [place] 37.5-25 mg 00 DAILY. [facility] Yes [id number] TAKE 2 [facility] -HYDROCHLOR 2-02 TABLETS BY it y of OTHIAZID 00:00: MOUTH [place] 37.5-25 mg 00 DAILY. [facility] Yes [id number] TAKE 2 [facility] -HYDROCHLOR 2-02 TABLETS BY it y of OTHIAZID 00:00: MOUTH [place] 37.5-25 mg 00 DAILY. Medical tablet [facility] 2018-09 Yes [id number] TAKE 2 [facility] -HYDROCHLOR 2-02 TABLETS BY it y of OTHIAZID 00:00: MOUTH [place] 37.5-25 mg 00 DAILY. Medical tablet [facility] 2018-09 Yes [id number] TAKE 2 [facility] -HYDROCHLOR 2-02 TABLETS BY it y of OTHIAZID 00:00: MOUTH [place] 37.5-25 mg 00 DAILY. Medical tablet [facility] 2018-09 Yes [id number] TAKE 2 [facility] -HYDROCHLOR 2-02 TABLETS BY it y of OTHIAZID 00:00: MOUTH [place] 37.5-25 mg 00 DAILY. Medical tablet [facility] 2018-09 Yes [id number] TAKE 2 [facility] -HYDROCHLOR 2-02 TABLETS BY it y of OTHIAZID 00:00: MOUTH [place] 37.5-25 mg 00 DAILY. Medical tablet [facility] 2018-09 Yes [id number] TAKE 2 [facility] -HYDROCHLOR 2-02 TABLETS BY it y of OTHIAZID 00:00: MOUTH [place] 37.5-25 mg 00 DAILY. Medical tablet [facility] 2018-09 Yes [id number] TAKE 2 [facility] -HYDROCHLOR 2-02 TABLETS BY it y of OTHIAZID 00:00: MOUTH [place] 37.5-25 mg 00 DAILY. Medical tablet [facility] 2018-09 Yes [id number] TAKE 2 [facility] -HYDROCHLOR 2-02 TABLETS BY it y of OTHIAZID 00:00: MOUTH [place] 37.5-25 mg 00 DAILY. Medical tablet Branch tiZANidine 2018-09 Yes [id number] 2mg Take 1-2 [facility] 2 mg tablet 1-20 tablets by it y of 00:00: mouth [place] 00 every 8 Medical (eight) Branch hours as needed (muscle pain or spasm). tiZANidine 2018-09 Yes [id number] 2mg Take 1-2 [facility] 2 mg tablet 1-20 tablets by it y of 00:00: mouth [place] 00 every 8 Medical (eight) Branch hours as needed (muscle pain or spasm). tiZANidine 2018-09 2020- No [id number] 2mg Take 1-2 [facility] 2 mg tablet -10-30 tablets by i ty of 00:00: 00:00 mouth [place] 00 :00 every 8 Medical (eight) Branch hours as needed (muscle pain or spasm). tiZANidine 2018-09 2020- No [id number] 2mg Take 1-2 [facility] 2 mg tablet -10-30 tablets by i ty of 00:00: 00:00 mouth [place] 00 :00 every 8 Medical (eight) Branch hours as needed (muscle pain or spasm). TRAZODONE 2018-09 Yes [id number] 100mg TAKE 1 [facility] 100 mg 0-08 TABLET BY ity of tablet 00:00: MOUTH AT [place] [address] BEDTIME. Medical FOR Branch INSOMNIA. TRAZODONE 2018-09 Yes [id number] 100mg TAKE 1 [facility] 100 mg 0-08 TABLET BY ity of tablet 00:00: MOUTH AT [place] [address] BEDTIME. Medical FOR Branch INSOMNIA. TRAZODONE 2018-09 Yes [id number] 100mg TAKE 1 [facility] 100 mg 0-08 TABLET BY ity of tablet 00:00: MOUTH AT [place] [address] BEDTIME. Medical FOR Branch INSOMNIA. TRAZODONE 2018-09 Yes [id number] 100mg TAKE 1 [facility] 100 mg 0-08 TABLET BY ity of tablet 00:00: MOUTH AT [place] [address] BEDTIME. Medical FOR Branch INSOMNIA. TRAZODONE 2018-09 Yes [id number] 100mg TAKE 1 [facility] 100 mg 0-08 TABLET BY ity of tablet 00:00: MOUTH AT [place] [address] BEDTIME. Medical FOR Branch INSOMNIA. TRAZODONE 2018-09 Yes [id number] 100mg TAKE 1 [facility] 100 mg 0-08 TABLET BY ity of tablet 00:00: MOUTH AT [place] 00 BEDTIME. Medical FOR Branch INSOMNIA. TRAZODONE 2018-09 Yes [id number] 100mg TAKE 1 [facility] 100 mg 0-08 TABLET BY ity of tablet 00:00: MOUTH AT [place] [address] BEDTIME. Medical FOR Branch INSOMNIA. TRAZODONE 2018-09 Yes [id number] 100mg TAKE 1 [facility] 100 mg 0-08 TABLET BY ity of tablet 00:00: MOUTH AT [place] [address] BEDTIME. Medical FOR Branch INSOMNIA. TRAZODONE 2018-09 Yes [id number] 100mg TAKE 1 [facility] 100 mg 0-08 TABLET BY ity of tablet 00:00: MOUTH AT [place] 00 BEDTIME. Medical FOR Branch INSOMNIA. TRAZODONE 2018-09 Yes [id number] 100mg TAKE 1 [facility] 100 mg 0-08 TABLET BY ity of tablet 00:00: MOUTH AT [place] 00 BEDTIME. Medical FOR Branch INSOMNIA. TRAZODONE 2018-09 Yes [id number] 100mg TAKE 1 [facility] 100 mg 0-08 TABLET BY ity of tablet 00:00: MOUTH AT [place] 00 BEDTIME. Medical FOR Branch INSOMNIA. TRAZODONE 2018-09 Yes [id number] 100mg TAKE 1 [facility] 100 mg 0-08 TABLET BY ity of tablet 00:00: MOUTH AT [place] 00 BEDTIME. Medical FOR Branch INSOMNIA. TRAZODONE 2018-09 Yes [id number] 100mg TAKE 1 [facility] 100 mg 0-08 TABLET BY ity of tablet 00:00: MOUTH AT [place] 00 BEDTIME. Medical FOR Branch INSOMNIA. TRAZODONE 2018-09 Yes [id number] 100mg TAKE 1 [facility] 100 mg 0-08 TABLET BY ity of tablet 00:00: MOUTH AT [place] [address] BEDTIME. Medical FOR Branch INSOMNIA. TRAZODONE 2018-09 Yes [id number] 100mg TAKE 1 [facility] 100 mg 0-08 TABLET BY ity of tablet 00:00: MOUTH AT [place] [address] BEDTIME. Medical FOR Branch INSOMNIA. TRAZODONE 2018-09 Yes [id number] 100mg TAKE 1 [facility] 100 mg 0-08 TABLET BY ity of tablet 00:00: MOUTH AT [place] [address] BEDTIME. Medical FOR Branch INSOMNIA. TRAZODONE 2018-09 Yes [id number] 100mg TAKE 1 [facility] 100 mg 0-08 TABLET BY ity of tablet 00:00: MOUTH AT [place] 00 BEDTIME. Medical FOR Branch INSOMNIA. TRAZODONE 2018-09 Yes [id number] 100mg TAKE 1 [facility] 100 mg 0-08 TABLET BY ity of tablet 00:00: MOUTH AT [place] 00 BEDTIME. Medical FOR Branch INSOMNIA. TRAZODONE 2018-09 Yes [id number] 100mg TAKE 1 [facility] 100 mg 0-08 TABLET BY ity of tablet 00:00: MOUTH AT [place] 00 BEDTIME. Medical FOR Branch INSOMNIA. TRAZODONE 2018-09 Yes [id number] 100mg TAKE 1 [facility] 100 mg 0-08 TABLET BY ity of tablet 00:00: MOUTH AT [place] 00 BEDTIME. Medical FOR Branch INSOMNIA. TRAZODONE 2018-09 2020- No [id number] 100mg TAKE 1 [facility] 100 mg 0-08 04-06 TABLET BY ity of tablet 00:00: 00:00 MOUTH AT [place] 00 :00 BEDTIME. Medical FOR Branch INSOMNIA. cyclobenzap Yes [id number] 10mg Take 1 [facility] rine 10 mg 9-30 tablet by ity of tablet 00:00: mouth 3 [place] 00 (three) Medical times Branch daily. cyclobenzap Yes [id number] 10mg Take 1 [facility] rine 10 mg 9-30 tablet by ity of tablet 00:00: mouth 3 [place] 00 (three) Medical times Branch daily. cyclobenzap Yes [id number] 10mg Take 1 [facility] rine 10 mg 9-30 tablet by ity of tablet 00:00: mouth 3 [place] (three) Medical times Branch daily. cyclobenzap Yes [id number] 10mg Take 1 [facility] rine 10 mg 9-30 tablet by ity of tablet 00:00: mouth 3 [place] (three) Medical times Branch daily. cyclobenzap Yes [id number] 10mg Take 1 [facility] rine 10 mg 9-30 tablet by ity of tablet 00:00: mouth 3 [place] (three) Medical times Branch daily. cyclobenzap Yes [id number] 10mg Take 1 [facility] rine 10 mg 9-30 tablet by ity of tablet 00:00: mouth 3 [place] 00 (three) Medical times Branch daily. cyclobenzap Yes [id number] 10mg Take 1 [facility] rine 10 mg 9-30 tablet by ity of tablet 00:00: mouth 3 [place] (three) Medical times Branch daily. cyclobenzap Yes [id number] 10mg Take 1 [facility] rine 10 mg 9-30 tablet by ity of tablet 00:00: mouth 3 [place] 00 (three) Medical times Branch daily. cyclobenzap Yes [id number] 10mg Take 1 [facility] rine 10 mg 9-30 tablet by ity of tablet 00:00: mouth 3 [place] (three) Medical times Branch daily. cyclobenzap Yes [id number] 10mg Take 1 [facility] rine 10 mg 9-30 tablet by ity of tablet 00:00: mouth 3 00 (three) Medical times Branch daily. cyclobenzap Yes [id number] 10mg Take 1 [facility] rine 10 mg 9-30 tablet by ity of tablet 00:00: mouth 3 (three) Medical times Branch daily. cyclobenzap Yes [id number] 10mg Take 1 [facility] rine 10 mg 9-30 tablet by ity of tablet 00:00: mouth 3 (three) Medical times Branch daily. cyclobenzap Yes [id number] 10mg Take 1 [facility] rine 10 mg 9-30 tablet by ity of tablet 00:00: mouth 3 (three) Medical times Branch daily. cyclobenzap Yes [id number] 10mg Take 1 [facility] rine 10 mg 9-30 tablet by ity of tablet 00:00: mouth 3 (three) Medical times Branch daily. cyclobenzap Yes [id number] 10mg Take 1 [facility] rine 10 mg 9-30 tablet by ity of tablet 00:00: mouth (three) Medical times Branch daily. cyclobenzap Yes [id number] 10mg Take 1 [facility] rine 10 mg 9-30 tablet by ity of tablet 00:00: mouth (three) Medical times Branch daily. cyclobenzap Yes [id number] 10mg Take 1 [facility] rine 10 mg 9-30 tablet by ity of tablet 00:00: mouth 3 (three) Medical times Branch daily. cyclobenzap Yes [id number] 10mg Take 1 [facility] rine 10 mg 9-30 tablet by ity of tablet 00:00: mouth 3 (three) Medical times Branch daily. cyclobenzap Yes [id number] 10mg Take 1 [facility] rine 10 mg 9-30 tablet by ity of tablet 00:00: mouth 3 (three) Medical times Branch daily. cyclobenzap Yes [id number] 10mg Take 1 [facility] rine 10 mg 9-30 tablet by ity of tablet 00:00: mouth 3 (three) Medical times Branch daily. cyclobenzap Yes [id number] 10mg Take 1 [facility] rine 10 mg 9-30 tablet by ity of tablet 00:00: mouth 3 (three) Medical times Branch daily. cyclobenzap Yes [id number] 10mg Take 1 [facility] rine 10 mg 9-30 tablet by ity of tablet 00:00: mouth 3 (three) Medical times Branch daily. cyclobenzap Yes [id number] 10mg Take 1 [facility] rine 10 mg 9-30 tablet by ity of tablet 00:00: mouth (three) Medical times Branch daily. cyclobenzap Yes [id number] 10mg Take 1 [facility] rine 10 mg 9-30 tablet by ity of tablet 00:00: mouth 3 (three) Medical times Branch daily. cyclobenzap Yes [id number] 10mg Take 1 [facility] rine 10 mg 9-30 tablet by ity of tablet 00:00: mouth (three) Medical times Branch daily. cyclobenzap Yes [id number] 10mg Take 1 [facility] rine 10 mg 9-30 tablet by ity of tablet 00:00: mouth (three) Medical times Branch daily. cyclobenzap Yes [id number] 10mg Take 1 [facility] rine 10 mg 9-30 tablet by ity of tablet 00:00: mouth (three) Medical times Branch daily. cyclobenzap Yes [id number] 10mg Take 1 [facility] rine 10 mg 9-30 tablet by ity of tablet 00:00: mouth (three) Medical times Branch daily. cyclobenzap Yes [id number] 10mg Take 1 [facility] rine 10 mg 9-30 tablet by ity of tablet 00:00: mouth (three) Medical times Branch daily. cyclobenzap Yes [id number] 10mg Take 1 [facility] rine 10 mg 9-30 tablet by ity of tablet 00:00: mouth 3 (three) Medical times Branch daily. cyclobenzap Yes [id number] 10mg Take 1 [facility] rine 10 mg 9-30 tablet by ity of tablet 00:00: mouth 3 (three) Medical times Branch daily. cyclobenzap Yes [id number] 10mg Take 1 [facility] rine 10 mg 9-30 tablet by ity of tablet 00:00: mouth 3 00 (three) Medical times Branch daily. cyclobenzap Yes [id number] 10mg Take 1 [facility] rine 10 mg 9-30 tablet by ity of tablet 00:00: mouth 3 (three) Medical times Branch daily. cyclobenzap Yes [id number] 10mg Take 1 [facility] rine 10 mg 9-30 tablet by ity of tablet 00:00: mouth 3 00 (three) Medical times Branch daily. cyclobenzap Yes [id number] 10mg Take 1 [facility] rine 10 mg 9-30 tablet by ity of tablet 00:00: mouth 3 00 (three) Medical times Branch daily. cyclobenzap Yes [id number] 10mg Take 1 [facility] rine 10 mg 9-30 tablet by ity of tablet 00:00: mouth 3 (three) Medical times Branch daily. cyclobenzap Yes [id number] 10mg Take 1 [facility] rine 10 mg 9-30 tablet by ity of tablet 00:00: mouth 3 (three) Medical times Branch daily. cyclobenzap Yes [id number] 10mg Take 1 [facility] rine 10 mg 9-30 tablet by ity of tablet 00:00: mouth 3 (three) Medical times Branch daily. cyclobenzap Yes [id number] 10mg Take 1 [facility] rine 10 mg 9-30 tablet by ity of tablet 00:00: mouth 3 00 (three) Medical times Branch daily. METFORMIN Yes [id number] TAKE 1 [facility] [place] 500 mg 9-30 TABLET BY ity o f 24 hr 00:00: MOUTH [place] tablet 00 EVERY DAY Medical WITH Branch BREAKFAST naproxen 2018- Yes [id number] 500mg Take 1 U n[facility] (NAPROSYN) 9-30 tablet by ity of 500 mg 00:00: mouth 2 [place] tablet 00 (two) Medical times Branch daily with meals. cyclobenzap Yes [id number] 10mg Take 1 [facility] rine 10 mg 9-30 tablet by ity of tablet 00:00: mouth 3 [place] 00 (three) Medical times Branch daily. METFORMIN Yes [id number] TAKE 1 Un [place] 500 mg 9-30 TABLET BY ity o f 24 hr 00:00: MOUTH [place] tablet 00 EVERY DAY Medical WITH Branch BREAKFAST naproxen 2018- Yes [id number] 500mg Take 1 U nivers (NAPROSYN) 9-30 tablet by ity of 500 mg 00:00: mouth 2 [place] tablet 00 (two) Medical times Branch daily with meals. cyclobenzap Yes [id number] 10mg Take 1 [facility] rine 10 mg 9-30 tablet by ity of tablet 00:00: mouth 3 [place] 00 (three) Medical times Branch daily. METFORMIN 2018- Yes [id number] TAKE 1 [facility] [place] 500 mg 9-30 TABLET BY ity o f 24 hr 00:00: MOUTH [place] tablet 00 EVERY DAY Medical WITH Branch BREAKFAST cyclobenzap Yes [id number] 10mg Take 1 [facility] rine 10 mg 9-30 tablet by ity of tablet 00:00: mouth 3 [place] 00 (three) Medical times Branch daily. METFORMIN 2018- Yes [id number] TAKE 1 Un [place] 500 mg 9-30 TABLET BY ity o f 24 hr 00:00: MOUTH [place] tablet 00 EVERY DAY Medical WITH Branch BREAKFAST cyclobenzap Yes [id number] 10mg Take 1 [facility] rine 10 mg 9-30 tablet by ity of tablet 00:00: mouth 3 [place] 00 (three) Medical times Branch daily. METFORMIN 2018-0 Yes [id number] TAKE 1 [facility] [place] 500 mg 9-30 TABLET BY ity o f 24 hr 00:00: MOUTH [place] tablet 00 EVERY DAY Medical WITH Branch BREAKFAST cyclobenzap Yes [id number] 10mg Take 1 [facility] rine 10 mg 9-30 tablet by ity of tablet 00:00: mouth 3 [place] 00 (three) Medical times Branch daily. METFORMIN 2018- Yes [id number] TAKE 1 [facility] [place] 500 mg 9-30 TABLET BY ity o f 24 hr 00:00: MOUTH [place] tablet 00 EVERY DAY Medical WITH Branch BREAKFAST cyclobenzap Yes [id number] 10mg Take 1 [facility] rine 10 mg 9-30 tablet by ity of tablet 00:00: mouth 3 [place] 00 (three) Medical times Branch daily. METFORMIN 2018-0 Yes [id number] TAKE 1 [facility] [place] 500 mg 9-30 TABLET BY ity o f 24 hr 00:00: MOUTH [place] tablet 00 EVERY DAY Medical WITH Branch BREAKFAST cyclobenzap Yes [id number] 10mg Take 1 [facility] rine 10 mg 9-30 tablet by ity of tablet 00:00: mouth 3 [place] 00 (three) Medical times Branch daily. METFORMIN 2018-0 Yes [id number] TAKE 1 [facility] [place] 500 mg 9-30 TABLET BY ity o f 24 hr 00:00: MOUTH [place] tablet 00 EVERY DAY Medical WITH Branch BREAKFAST cyclobenzap Yes [id number] 10mg Take 1 [facility] rine 10 mg 9-30 tablet by ity of tablet 00:00: mouth 3 [place] 00 (three) Medical times Branch daily. METFORMIN 2018- Yes [id number] TAKE 1 [facility] [place] 500 mg 9-30 TABLET BY ity o f 24 hr 00:00: MOUTH [place] tablet 00 EVERY DAY Medical WITH Branch BREAKFAST cyclobenzap Yes [id number] 10mg Take 1 [facility] rine 10 mg 9-30 tablet by ity of tablet 00:00: mouth 3 [place] 00 (three) Medical times Branch daily. METFORMIN 2018-0 Yes [id number] TAKE 1 [facility] [place] 500 mg 9-30 TABLET BY ity o f 24 hr 00:00: MOUTH [place] tablet 00 EVERY DAY Medical WITH Branch BREAKFAST cyclobenzap Yes [id number] 10mg Take 1 [facility] rine 10 mg 9-30 tablet by ity of tablet 00:00: mouth 3 [place] 00 (three) Medical times Branch daily. METFORMIN 2018-0 Yes [id number] TAKE 1 [facility] [place] ER 500 mg 9-30 TABLET BY ity o f 24 hr 00:00: MOUTH [place] tablet 00 EVERY DAY Medical WITH Branch BREAKFAST cyclobenzap Yes [id number] 10mg Take 1 [facility] rine 10 mg 9-30 tablet by ity of tablet 00:00: mouth 3 [place] 00 (three) Medical times Branch daily. METFORMIN 2018-0 Yes [id number] TAKE 1 [facility] [place] 500 mg 9-30 TABLET BY ity o f 24 hr 00:00: MOUTH [place] tablet 00 EVERY DAY Medical WITH Branch BREAKFAST cyclobenzap Yes [id number] 10mg Take 1 [facility] rine 10 mg 9-30 tablet by ity of tablet 00:00: mouth 3 [place] 00 (three) Medical times Branch daily. METFORMIN 2018-0 Yes [id number] TAKE 1 [facility] [place] 500 mg 9-30 TABLET BY ity o f 24 hr 00:00: MOUTH [place] tablet 00 EVERY DAY Medical WITH Branch BREAKFAST cyclobenzap Yes [id number] 10mg Take 1 [facility] rine 10 mg 9-30 tablet by ity of tablet 00:00: mouth 3 [place] 00 (three) Medical times Branch daily. METFORMIN Yes [id number] TAKE 1 [facility] [place] 500 mg 9-30 TABLET BY ity o f 24 hr 00:00: MOUTH [place] tablet 00 EVERY DAY Medical WITH Branch BREAKFAST cyclobenzap Yes [id number] 10mg Take 1 [facility] rine 10 mg 9-30 tablet by ity of tablet 00:00: mouth 3 [place] 00 (three) Medical times Branch daily. cyclobenzap Yes [id number] 10mg Take 1 [facility] rine 10 mg 9-30 tablet by ity of tablet 00:00: mouth 3 [place] 00 (three) Medical times Branch daily. cyclobenzap Yes [id number] 10mg Take 1 [facility] rine 10 mg 9-30 tablet by ity of tablet 00:00: mouth 3 [place] 00 (three) Medical times Branch daily. cyclobenzap 2020- No [id number] 10mg Take 1 [facility] rine 10 mg 9-30 10-05 tablet by ity of tablet 00:00: 00:00 mouth 3 [place] 00 :00 (three) Medical times Branch daily. cyclobenzap 2020- No [id number] 10mg Take 1 [facility] rine 10 mg 9-30 10-05 tablet by ity of tablet 00:00: 00:00 mouth 3 [place] 00 :00 (three) Medical times Branch daily. METFORMIN 2020- No [id number] TAKE 1 [facility] ER 500 mg 9-30 03-24 TABLET BY ity of 24 hr 00:00: 00:00 MOUTH [place] tablet 00 :00 EVERY DAY Medical WITH Branch BREAKFAST METFORMIN 2020- No [id number] TAKE 1 [facility] [place] 500 mg 9-30 03-24 TABLET BY ity of 24 hr 00:00: 00:00 MOUTH [place] tablet 00 :00 EVERY DAY Medical WITH Branch BREAKFAST naproxen 2020- No [id number] 500mg Take 1 [facility] (NAPROSYN) 9-30 02-13 tablet by ity of 500 mg 00:00: 00:00 mouth 2 [place] tablet 00 :00 (two) Medical times Branch daily with meals. naproxen 2020- No [id number] 500mg Take 1 [facility] (NAPROSYN) -30 -13 tablet by ity of 500 mg 00:00: 00:00 mouth 2 [place] tablet 00 :00 (two) Medical times [place] daily with meals. peg-electro Yes [id number] 4000mL Take 4,000 [facility] lyte soln 9-20 mL by ity of 236-22.74-6 00:00: mouth [place] .74 -5.86 00 SEE-INSTRU Medi kacey gram CTIONS. [place] solution Take as directed Diclofenac Yes [id number] Apply 2 to [facility] Sodium 1 % 9-16 4 grams ity of gel 00:00: 3-4 times [place] 00 daily as Medical needed. [place] Diclofenac Yes [id number] Apply 2 to [facility] Sodium 1 % 9-16 4 grams ity of gel 00:00: 3-4 times [place] 00 daily as Medical needed. [place] Diclofenac Yes [id number] Apply 2 to [facility] Sodium 1 % 9-16 4 grams ity of gel 00:00: 3-4 times [place] 00 daily as Medical needed. [place] Diclofenac Yes [id number] Apply 2 to [facility] Sodium 1 % 9-16 4 grams ity of gel 00:00: 3-4 times [place] 00 daily as Medical needed. [place] Diclofenac Yes [id number] Apply 2 to [facility] Sodium 1 % 9-16 4 grams ity of gel 00:00: 3-4 times [place] 00 daily as Medical needed. [place] Diclofenac Yes [id number] Apply 2 to [facility] Sodium 1 % 9-16 4 grams ity of gel 00:00: 3-4 times [place] 00 daily as Medical needed. [place] Diclofenac Yes [id number] Apply 2 to [facility] Sodium 1 % 9-16 4 grams ity of gel 00:00: 3-4 times [place] 00 daily as Medical needed. [place] Diclofenac Yes [id number] Apply 2 to [facility] Sodium 1 % 9-16 4 grams ity of gel 00:00: 3-4 times [place] 00 daily as Medical needed. [place] Diclofenac Yes [id number] Apply 2 to [facility] Sodium 1 % 9-16 4 grams ity of gel 00:00: 3-4 times [place] 00 daily as Medical needed. [place] Diclofenac Yes [id number] Apply 2 to [facility] Sodium 1 % 9-16 4 grams ity of gel 00:00: 3-4 times [place] 00 daily as Medical needed. Branch Diclofenac Yes [id number] Apply 2 to [facility] Sodium 1 % 9-16 4 grams ity of gel 00:00: 3-4 times [place] 00 daily as Medical needed. Branch Diclofenac Yes [id number] Apply 2 to [facility] Sodium 1 % 9-16 4 grams ity of gel 00:00: 3-4 times [place] 00 daily as Medical needed. Branch Diclofenac Yes [id number] Apply 2 to [facility] Sodium 1 % 9-16 4 grams ity of gel 00:00: 3-4 times [place] 00 daily as Medical needed. Branch Diclofenac Yes [id number] Apply 2 to [facility] Sodium 1 % 9-16 4 grams ity of gel 00:00: 3-4 times [place] 00 daily as Medical needed. Branch Diclofenac Yes [id number] Apply 2 to [facility] Sodium 1 % 9-16 4 grams ity of gel 00:00: 3-4 times [place] 00 daily as Medical needed. Branch Diclofenac Yes [id number] Apply 2 to [facility] Sodium 1 % 9-16 4 grams ity of gel 00:00: 3-4 times [place] 00 daily as Medical needed. Branch Diclofenac Yes [id number] Apply 2 to [facility] Sodium 1 % 9-16 4 grams ity of gel 00:00: 3-4 times [place] 00 daily as Medical needed. Branch Diclofenac Yes [id number] Apply 2 to [facility] Sodium 1 % 9-16 4 grams ity of gel 00:00: 3-4 times [place] 00 daily as Medical needed. Branch Diclofenac Yes [id number] Apply 2 to [facility] Sodium 1 % 9-16 4 grams ity of gel 00:00: 3-4 times [place] 00 daily as Medical needed. Branch Diclofenac Yes [id number] Apply 2 to [facility] Sodium 1 % 9-16 4 grams ity of gel 00:00: 3-4 times [place] 00 daily as Medical needed. Branch Diclofenac Yes [id number] Apply 2 to [facility] Sodium 1 % 9-16 4 grams ity of gel 00:00: 3-4 times [place] 00 daily as Medical needed. Branch Diclofenac Yes [id number] Apply 2 to [facility] Sodium 1 % 9-16 4 grams ity of gel 00:00: 3-4 times [place] 00 daily as Medical needed. Branch Diclofenac Yes [id number] Apply 2 to [facility] Sodium 1 % 9-16 4 grams ity of gel 00:00: 3-4 times [place] 00 daily as Medical needed. Branch Diclofenac Yes [id number] Apply 2 to [facility] Sodium 1 % 9-16 4 grams ity of gel 00:00: 3-4 times [place] 00 daily as Medical needed. Branch Diclofenac Yes [id number] Apply 2 to [facility] Sodium 1 % 9-16 4 grams ity of gel 00:00: 3-4 times [place] 00 daily as Medical needed. Branch Diclofenac Yes [id number] Apply 2 to [facility] Sodium 1 % 9-16 4 grams ity of gel 00:00: 3-4 times [place] 00 daily as Medical needed. Branch Diclofenac Yes [id number] Apply 2 to Univers Sodium 1 % 9-16 4 grams ity of gel 00:00: 3-4 times [place] 00 daily as Medical needed. [facility] Diclofenac Yes [id number] Apply 2 to [facility] Sodium 1 % 9-16 4 grams ity of gel 00:00: 3-4 times [place] 00 daily as Medical needed. [facility] Diclofenac Yes [id number] Apply 2 to [facility] Sodium 1 % 9-16 4 grams ity of gel 00:00: 3-4 times [place] 00 daily as Medical needed. [facility] Diclofenac Yes [id number] Apply 2 to [facility] Sodium 1 % 9-16 4 grams ity of gel 00:00: 3-4 times [place] 00 daily as Medical needed. [facility] Diclofenac Yes [id number] Apply 2 to [facility] Sodium 1 % 9-16 4 grams ity of gel 00:00: 3-4 times [place] 00 daily as Medical needed. [facility] Diclofenac Yes [id number] Apply 2 to [facility] Sodium 1 % 9-16 4 grams ity of gel 00:00: 3-4 times [place] 00 daily as Medical needed. [facility] Diclofenac Yes [id number] Apply 2 to [facility] Sodium 1 % 9-16 4 grams ity of gel 00:00: 3-4 times [place] 00 daily as Medical needed. [facility] Diclofenac Yes [id number] Apply 2 to [facility] Sodium 1 % 9-16 4 grams ity of gel 00:00: 3-4 times [place] 00 daily as Medical needed. [facility] Diclofenac Yes [id number] Apply 2 to [facility] Sodium 1 % 9-16 4 grams ity of gel 00:00: 3-4 times [place] 00 daily as Medical needed. [facility] Diclofenac Yes [id number] Apply 2 to [facility] Sodium 1 % 9-16 4 grams ity of gel 00:00: 3-4 times [place] 00 daily as Medical needed. [facility] Diclofenac Yes [id number] Apply 2 to [facility] Sodium 1 % 9-16 4 grams ity of gel 00:00: 3-4 times [place] 00 daily as Medical needed. [facility] Diclofenac Yes [id number] Apply 2 to [facility] Sodium 1 % 9-16 4 grams ity of gel 00:00: 3-4 times [place] 00 daily as Medical needed. [facility] Diclofenac Yes [id number] Apply 2 to [facility] Sodium 1 % 9-16 4 grams ity of gel 00:00: 3-4 times [place] 00 daily as Medical needed. [facility] Diclofenac Yes [id number] Apply 2 to [facility] Sodium 1 % 9-16 4 grams ity of gel 00:00: 3-4 times [place] 00 daily as Medical needed. [facility] Diclofenac Yes [id number] Apply 2 to [facility] Sodium 1 % 9-16 4 grams ity of gel 00:00: 3-4 times [place] 00 daily as Medical needed. [facility] Diclofenac Yes [id number] Apply 2 to [facility] Sodium 1 % 9-16 4 grams ity of gel 00:00: 3-4 times [place] 00 daily as Medical needed. [facility] Diclofenac Yes [id number] Apply 2 to [facility] Sodium 1 % 9-16 4 grams ity of gel 00:00: 3-4 times [place] 00 daily as Medical needed. [facility] Diclofenac Yes [id number] Apply 2 to [facility] Sodium 1 % 9-16 4 grams ity of gel 00:00: 3-4 times [place] 00 daily as Medical needed. [facility] Diclofenac Yes [id number] Apply 2 to [facility] Sodium 1 % 9-16 4 grams ity of gel 00:00: 3-4 times [place] 00 daily as Medical needed. [facility] Diclofenac Yes [id number] Apply 2 to [facility] Sodium 1 % 9-16 4 grams ity of gel 00:00: 3-4 times [place] 00 daily as Medical needed. [facility] Diclofenac Yes [id number] Apply 2 to [facility] Sodium 1 % 9-16 4 grams ity of gel 00:00: 3-4 times [place] 00 daily as Medical needed. [facility] Diclofenac Yes [id number] Apply 2 to [facility] Sodium 1 % 9-16 4 grams ity of gel 00:00: 3-4 times [place] 00 daily as Medical needed. [facility] Diclofenac Yes [id number] Apply 2 to [facility] Sodium 1 % 9-16 4 grams ity of gel 00:00: 3-4 times [place] 00 daily as Medical needed. [facility] Diclofenac Yes [id number] Apply 2 to [facility] Sodium 1 % 9-16 4 grams ity of gel 00:00: 3-4 times [place] 00 daily as Medical needed. [facility] Diclofenac Yes [id number] Apply 2 to [facility] Sodium 1 % 9-16 4 grams ity of gel 00:00: 3-4 times [place] 00 daily as Medical needed. [facility] Diclofenac Yes [id number] Apply 2 to [facility] Sodium 1 % 9-16 4 grams ity of gel 00:00: 3-4 times [place] 00 daily as Medical needed. [facility] Diclofenac Yes [id number] Apply 2 to [facility] Sodium 1 % 9-16 4 grams ity of gel 00:00: 3-4 times [place] 00 daily as Medical needed. [facility] Diclofenac Yes [id number] Apply 2 to [facility] Sodium 1 % 9-16 4 grams ity of gel 00:00: 3-4 times [place] 00 daily as Medical needed. [facility] Diclofenac Yes [id number] Apply 2 to [facility] Sodium 1 % 9-16 4 grams ity of gel 00:00: 3-4 times [place] 00 daily as Medical needed. [facility] Diclofenac Yes [id number] Apply 2 to [facility] Sodium 1 % 9-16 4 grams ity of gel 00:00: 3-4 times [place] 00 daily as Medical needed. [facility] Diclofenac Yes [id number] Apply 2 to [facility] Sodium 1 % 9-16 4 grams ity of gel 00:00: 3-4 times [place] 00 daily as Medical needed. [facility] Diclofenac Yes [id number] Apply 2 to [facility] Sodium 1 % 9-16 4 grams ity of gel 00:00: 3-4 times [place] 00 daily as Medical needed. [facility] Diclofenac Yes [id number] Apply 2 to [facility] Sodium 1 % 9-16 4 grams ity of gel 00:00: 3-4 times [place] 00 daily as Medical needed. [place] Diclofenac Yes [id number] Apply 2 to [facility] Sodium 1 % 9-16 4 grams ity of gel 00:00: 3-4 times [place] 00 daily as Medical needed. [place] Diclofenac Yes [id number] Apply 2 to [facility] Sodium 1 % 9-16 4 grams it[facility] of gel 00:00: 3-4 times [place] 00 daily as Medical needed. [place] Diclofenac Yes [id number] Apply 2 to [facility] Sodium 1 % 9-16 4 grams ity of gel 00:00: 3-4 times [place] 00 daily as Medical needed. [place] Diclofenac Yes [id number] Apply 2 to [facility] Sodium 1 % 9-16 4 grams ity of gel 00:00: 3-4 times [place] 00 daily as Medical needed. [place] Diclofenac Yes [id number] Apply 2 to [facility] Sodium 1 % 9-16 4 grams ity of gel 00:00: 3-4 times [place] 00 daily as Medical needed. [place] Diclofenac Yes [id number] Apply 2 to [facility] Sodium 1 % 9-16 4 grams ity of gel 00:00: 3-4 times [place] 00 daily as Medical needed. [place] Diclofenac Yes [id number] Apply 2 to [facility] Sodium 1 % 9-16 4 grams ity of gel 00:00: 3-4 times [place] 00 daily as Medical needed. [place] Diclofenac Yes [id number] Apply 2 to [facility] Sodium 1 % 9-16 4 grams [facility]y of gel 00:00: 3-4 times [place] 00 daily as Medical needed. [place] Diclofenac Yes [id number] Apply 2 to [facility] Sodium 1 % 9-16 4 grams ity of gel 00:00: 3-4 times [place] 00 daily as Medical needed. [place] Diclofenac Yes [id number] Apply 2 to [facility] Sodium 1 % 9-16 4 grams ity of gel 00:00: 3-4 times [place] 00 daily as Medical needed. [facility] methocarbam Yes [id number] 750mg Take 1 [facility] ol 9-16 tablet by ity of (ROBAXIN-75 00:00: mouth 4 [place] 0) 750 mg 00 (four) Medical tablet times [place] daily as needed for Pain (scale 1-3). Diclofenac Yes [id number] Apply 2 to [facility] Sodium 1 % 9-16 4 grams ity of gel 00:00: 3-4 times [place] 00 daily as Medical needed. [place] Diclofenac Yes [id number] Apply 2 to [facility] Sodium 1 % 9-16 4 grams [facility] of gel 00:00: 3-4 times [place] 00 daily as Medical needed. [place] Diclofenac Yes [id number] Apply 2 to [facility] Sodium 1 % 9-16 4 grams [facility]y of gel 00:00: 3-4 times [place] 00 daily as Medical needed. [place] Diclofenac Yes [id number] Apply 2 to [facility] Sodium 1 % 9-16 4 grams [facility] of gel 00:00: 3-4 times [place] 00 daily as Medical needed. [place] Diclofenac Yes [id number] Apply 2 to [facility] Sodium 1 % 9-16 4 grams ity of gel 00:00: 3-4 times [place] 00 daily as Medical needed. [place] Diclofenac Yes [id number] Apply 2 to [facility] Sodium 1 % 9-16 4 grams ity of gel 00:00: 3-4 times [place] 00 daily as Medical needed. [place] Diclofenac Yes [id number] Apply 2 to [facility] Sodium 1 % 9-16 4 grams ity of gel 00:00: 3-4 times [place] 00 daily as Medical needed. [place] Diclofenac Yes [id number] Apply 2 to [facility] Sodium 1 % 9-16 4 grams it[facility] of gel 00:00: 3-4 times [place] 00 daily as Medical needed. [place] Diclofenac Yes [id number] Apply 2 to [facility] Sodium 1 % 9-16 4 grams ity of gel 00:00: 3-4 times [place] 00 daily as Medical needed. [facility] Diclofenac Yes [id number] Apply 2 to [facility] Sodium 1 % 9-16 4 grams ity of gel 00:00: 3-4 times [place] 00 daily as Medical needed. [facility] methocarbam Yes [id number] 750mg Take 1 [facility] ol 9-16 tablet by ity of (ROBAXIN-75 00:00: mouth 4 [place] 0) 750 mg 00 (four) Medical tablet times [place] daily as needed for Pain (scale 1-3). Diclofenac Yes [id number] Apply 2 to [facility] Sodium 1 % 9-16 4 grams ity of gel 00:00: 3-4 times [place] 00 daily as Medical needed. [place] Diclofenac Yes [id number] Apply 2 to [facility] Sodium 1 % 9-16 4 grams [facility] of gel 00:00: 3-4 times [place] 00 daily as Medical needed. [facility] Diclofenac Yes [id number] Apply 2 to [facility] Sodium 1 % 9-16 4 grams ity of gel 00:00: 3-4 times [place] 00 daily as Medical needed. [place] Diclofenac Yes [id number] Apply 2 to [facility] Sodium 1 % 9-16 4 grams ity of gel 00:00: 3-4 times [place] 00 daily as Medical needed. [place] Diclofenac Yes [id number] Apply 2 to [facility] Sodium 1 % 9-16 4 grams it[facility] of gel 00:00: 3-4 times [place] 00 daily as Medical needed. [place] Diclofenac Yes [id number] Apply 2 to [facility] Sodium 1 % 9-16 4 grams ity of gel 00:00: 3-4 times [place] 00 daily as Medical needed. [place] Diclofenac Yes [id number] Apply 2 to [facility] Sodium 1 % 9-16 4 grams ity of gel 00:00: 3-4 times [place] 00 daily as Medical needed. [place] Diclofenac Yes [id number] Apply 2 to [facility] Sodium 1 % 9-16 4 grams ity of gel 00:00: 3-4 times [place] 00 daily as Medical needed. [place] Diclofenac Yes [id number] Apply 2 to [facility] Sodium 1 % 9-16 4 grams ity of gel 00:00: 3-4 times [place] 00 daily as Medical needed. [facility] Diclofenac Yes [id number] Apply 2 to [facility] Sodium 1 % 9-16 4 grams ity of gel 00:00: 3-4 times [place] 00 daily as Medical needed. [facility] methocarbam Yes [id number] 750mg Take 1 [facility] ol 9-16 tablet by ity of (ROBAXIN-75 00:00: mouth 4 [place] 0) 750 mg 00 (four) Medical tablet times [facility] daily as needed for Pain (scale 1-3). Diclofenac Yes [id number] Apply 2 to [facility] Sodium 1 % 9-16 4 grams ity of gel 00:00: 3-4 times [place] 00 daily as Medical needed. [facility] Diclofenac Yes [id number] Apply 2 to [facility] Sodium 1 % 9-16 4 grams ity of gel 00:00: 3-4 times [place] 00 daily as Medical needed. [facility] Diclofenac Yes [id number] Apply 2 to [facility] Sodium 1 % 9-16 4 grams ity of gel 00:00: 3-4 times [place] 00 daily as Medical needed. [place] Diclofenac Yes [id number] Apply 2 to [facility] Sodium 1 % 9-16 4 grams ity of gel 00:00: 3-4 times [place] 00 daily as Medical needed. [place] Diclofenac Yes [id number] Apply 2 to [facility] Sodium 1 % 9-16 4 grams ity of gel 00:00: 3-4 times [place] 00 daily as Medical needed. [place] Diclofenac Yes [id number] Apply 2 to [facility] Sodium 1 % 9-16 4 grams ity of gel 00:00: 3-4 times [place] 00 daily as Medical needed. [place] Diclofenac Yes [id number] Apply 2 to [facility] Sodium 1 % 9-16 4 grams it[facility] of gel 00:00: 3-4 times [place] 00 daily as Medical needed. [place] Diclofenac Yes [id number] Apply 2 to [facility] Sodium 1 % 9-16 4 grams ity of gel 00:00: 3-4 times [place] 00 daily as Medical needed. [place] methocarbam Yes [id number] 750mg Take 1 [facility] ol 9-16 tablet by ity of (ROBAXIN-75 00:00: mouth 4 [place] 0) 750 mg 00 (four) Medical tablet times [facility] daily as needed for Pain (scale 1-3). Diclofenac Yes [id number] Apply 2 to [facility] Sodium 1 % 9-16 4 grams ity of gel 00:00: 3-4 times [place] 00 daily as Medical needed. [place] Diclofenac Yes [id number] Apply 2 to [facility] Sodium 1 % 9-16 4 grams [facility] of gel 00:00: 3-4 times [place] 00 daily as Medical needed. [place] Diclofenac Yes [id number] Apply 2 to [facility] Sodium 1 % 9-16 4 grams ity of gel 00:00: 3-4 times [place] 00 daily as Medical needed. [place] Diclofenac Yes [id number] Apply 2 to [facility] Sodium 1 % 9-16 4 grams ity of gel 00:00: 3-4 times [place] 00 daily as Medical needed. [place] Diclofenac Yes [id number] Apply 2 to [facility] Sodium 1 % 9-16 4 grams ity of gel 00:00: 3-4 times [place] 00 daily as Medical needed. [place] Diclofenac Yes [id number] Apply 2 to [facility] Sodium 1 % 9-16 4 grams ity of gel 00:00: 3-4 times [place] 00 daily as Medical needed. [facility] Diclofenac Yes [id number] Apply 2 to [facility] Sodium 1 % 9-16 4 grams ity of gel 00:00: 3-4 times [place] 00 daily as Medical needed. [place] Diclofenac Yes [id number] Apply 2 to [facility] Sodium 1 % 9-16 4 grams ity of gel 00:00: 3-4 times [place] 00 daily as Medical needed. [facility] methocarbam Yes [id number] 750mg Take 1 [facility] ol 9-16 tablet by ity of (ROBAXIN-75 00:00: mouth 4 [place] 0) 750 mg 00 (four) Medical tablet times [facility] daily as needed for Pain (scale 1-3). Diclofenac Yes [id number] Apply 2 to [facility] Sodium 1 % 9-16 4 grams ity of gel 00:00: 3-4 times [place] 00 daily as Medical needed. [place] Diclofenac Yes [id number] Apply 2 to [facility] Sodium 1 % 9-16 4 grams ity of gel 00:00: 3-4 times [place] 00 daily as Medical needed. [place] Diclofenac Yes [id number] Apply 2 to [facility] Sodium 1 % 9-16 4 grams ity of gel 00:00: 3-4 times [place] 00 daily as Medical needed. [facility] Diclofenac Yes [id number] Apply 2 to [facility] Sodium 1 % 9-16 4 grams ity of gel 00:00: 3-4 times [place] 00 daily as Medical needed. [facility] Diclofenac Yes [id number] Apply 2 to [facility] Sodium 1 % 9-16 4 grams ity of gel 00:00: 3-4 times [place] 00 daily as Medical needed. [place] Diclofenac Yes [id number] Apply 2 to [facility] Sodium 1 % 9-16 4 grams ity of gel 00:00: 3-4 times [place] 00 daily as Medical needed. [facility] Diclofenac Yes [id number] Apply 2 to [facility] Sodium 1 % 9-16 4 grams ity of gel 00:00: 3-4 times [place] 00 daily as Medical needed. [facility] methocarbam Yes [id number] 750mg Take 1 [facility] ol 9-16 tablet by ity of (ROBAXIN-75 00:00: mouth 4 [place] 0) 750 mg 00 (four) Medical tablet times [facility] daily as needed for Pain (scale 1-3). Diclofenac Yes [id number] Apply 2 to [facility] Sodium 1 % 9-16 4 grams ity of gel 00:00: 3-4 times [place] 00 daily as Medical needed. [facility] Diclofenac Yes [id number] Apply 2 to [facility] Sodium 1 % 9-16 4 grams [facility]y of gel 00:00: 3-4 times [place] 00 daily as Medical needed. [facility] Diclofenac Yes [id number] Apply 2 to [facility] Sodium 1 % 9-16 4 grams ity of gel 00:00: 3-4 times [place] 00 daily as Medical needed. [facility] Diclofenac Yes [id number] Apply 2 to [facility] Sodium 1 % 9-16 4 grams ity of gel 00:00: 3-4 times [place] 00 daily as Medical needed. [place] Diclofenac Yes [id number] Apply 2 to [facility] Sodium 1 % 9-16 4 grams ity of gel 00:00: 3-4 times [place] 00 daily as Medical needed. [place] Diclofenac Yes [id number] Apply 2 to [facility] Sodium 1 % 9-16 4 grams ity of gel 00:00: 3-4 times [place] 00 daily as Medical needed. [place] Diclofenac Yes [id number] Apply 2 to [facility] Sodium 1 % 9-16 4 grams ity of gel 00:00: 3-4 times [place] 00 daily as Medical needed. [place] Diclofenac Yes [id number] Apply 2 to [facility] Sodium 1 % 9-16 4 grams ity of gel 00:00: 3-4 times [place] 00 daily as Medical needed. [place] Diclofenac Yes [id number] Apply 2 to [facility] Sodium 1 % 9-16 4 grams ity of gel 00:00: 3-4 times [place] 00 daily as Medical needed. [place] Diclofenac Yes [id number] Apply 2 to [facility] Sodium 1 % 9-16 4 grams ity of gel 00:00: 3-4 times [place] 00 daily as Medical needed. [place] Diclofenac Yes [id number] Apply 2 to [facility] Sodium 1 % 9-16 4 grams ity of gel 00:00: 3-4 times [place] 00 daily as Medical needed. [facility] Diclofenac Yes [id number] Apply 2 to [facility] Sodium 1 % 9-16 4 grams ity of gel 00:00: 3-4 times [place] 00 daily as Medical needed. [facility] Diclofenac Yes [id number] Apply 2 to [facility] Sodium 1 % 9-16 4 grams ity of gel 00:00: 3-4 times [place] 00 daily as Medical needed. [facility] Diclofenac Yes [id number] Apply 2 to [facility] Sodium 1 % 9-16 4 grams ity of gel 00:00: 3-4 times [place] 00 daily as Medical needed. [facility] Diclofenac Yes [id number] Apply 2 to [facility] Sodium 1 % 9-16 4 grams ity of gel 00:00: 3-4 times [place] 00 daily as Medical needed. [facility] Diclofenac Yes [id number] Apply 2 to [facility] Sodium 1 % 9-16 4 grams ity of gel 00:00: 3-4 times [place] 00 daily as Medical needed. [facility] Diclofenac Yes [id number] Apply 2 to [facility] Sodium 1 % 9-16 4 grams ity of gel 00:00: 3-4 times [place] 00 daily as Medical needed. [facility] Diclofenac Yes [id number] Apply 2 to [facility] Sodium 1 % 9-16 4 grams ity of gel 00:00: 3-4 times [place] 00 daily as Medical needed. [facility] Diclofenac Yes [id number] Apply 2 to [facility] Sodium 1 % 9-16 4 grams ity of gel 00:00: 3-4 times [place] 00 daily as Medical needed. [facility] Diclofenac Yes [id number] Apply 2 to [facility] Sodium 1 % 9-16 4 grams ity of gel 00:00: 3-4 times [place] 00 daily as Medical needed. [facility] Diclofenac Yes [id number] Apply 2 to [facility] Sodium 1 % 9-16 4 grams ity of gel 00:00: 3-4 times [place] 00 daily as Medical needed. [facility] Diclofenac Yes [id number] Apply 2 to [facility] Sodium 1 % 9-16 4 grams ity of gel 00:00: 3-4 times [place] 00 daily as Medical needed. [facility] Diclofenac Yes [id number] Apply 2 to [facility] Sodium 1 % 9-16 4 grams ity of gel 00:00: 3-4 times [place] 00 daily as Medical needed. [facility] Diclofenac 2018-0 Yes [id number] Apply 2 to [facility] Sodium 1 % 9-16 4 grams ity of gel 00:00: 3-4 times [place] 00 daily as Medical needed. [facility] Diclofenac 2018-0 Yes [id number] Apply 2 to [facility] Sodium 1 % 9-16 4 grams ity of gel 00:00: 3-4 times [place] 00 daily as Medical needed. [facility] TIZANIDINE Yes [id number] 2mg TAKE 1-2 [facility] 2 mg tablet 7-24 TABLETS BY it y of 00:00: MOUTH [place] 00 EVERY 8 Medical (EIGHT) Branch HOURS NEEDED (MUSCLE PAIN OR SPASM). TIZANIDINE Yes [id number] 2mg TAKE 1-2 [facility] 2 mg tablet 7-24 TABLETS BY it y of 00:00: MOUTH [place] 00 EVERY 8 Medical (EIGHT) Branch HOURS NEEDED (MUSCLE PAIN OR SPASM). TIZANIDINE Yes [id number] 2mg TAKE 1-2 [facility] 2 mg tablet 7-24 TABLETS BY it y of 00:00: MOUTH [place] 00 EVERY 8 Medical (EIGHT) Branch HOURS NEEDED (MUSCLE PAIN OR SPASM). TIZANIDINE Yes [id number] 2mg TAKE 1-2 [facility] 2 mg tablet 7-24 TABLETS BY it y of 00:00: MOUTH [place] 00 EVERY 8 Medical (EIGHT) Branch HOURS NEEDED (MUSCLE PAIN OR SPASM). TIZANIDINE Yes [id number] 2mg TAKE 1-2 [facility] 2 mg tablet 7-24 TABLETS BY it y of 00:00: MOUTH [place] 00 EVERY 8 Medical (EIGHT) Branch HOURS NEEDED (MUSCLE PAIN OR SPASM). TIZANIDINE Yes [id number] 2mg TAKE 1-2 [facility] 2 mg tablet 7-24 TABLETS BY it y of 00:00: MOUTH [place] 00 EVERY 8 Medical (EIGHT) Branch HOURS NEEDED (MUSCLE PAIN OR SPASM). TIZANIDINE 2018-0 Yes [id number] 2mg TAKE 1-2 [facility] 2 mg tablet 7-24 TABLETS BY it y of 00:00: MOUTH [place] 00 EVERY 8 Medical (EIGHT) Branch HOURS NEEDED (MUSCLE PAIN OR SPASM). TIZANIDINE 2018-0 Yes [id number] 2mg TAKE 1-2 [facility] 2 mg tablet 7-24 TABLETS BY it y of 00:00: MOUTH [place] 00 EVERY 8 Medical (EIGHT) Branch HOURS NEEDED (MUSCLE PAIN OR SPASM). TIZANIDINE 2019-0 Yes [id number] 2mg TAKE 1-2 [facility] 2 mg tablet 7-24 TABLETS BY it y of 00:00: MOUTH [place] 00 EVERY 8 Medical (EIGHT) Branch HOURS NEEDED (MUSCLE PAIN OR SPASM). TIZANIDINE 2019-0 Yes [id number] 2mg TAKE 1-2 [facility] 2 mg tablet 7-24 TABLETS BY it y of 00:00: MOUTH [place] 00 EVERY 8 Medical (EIGHT) Branch HOURS NEEDED (MUSCLE PAIN OR SPASM). TIZANIDINE 2019-0 Yes [id number] 2mg TAKE 1-2 [facility] 2 mg tablet 7-24 TABLETS BY it y of 00:00: MOUTH [place] 00 EVERY 8 Medical (EIGHT) Branch HOURS NEEDED (MUSCLE PAIN OR SPASM). TIZANIDINE 2019-0 Yes [id number] 2mg TAKE 1-2 [facility] 2 mg tablet 7-24 TABLETS BY it y of 00:00: MOUTH [place] 00 EVERY 8 Medical (EIGHT) Branch HOURS NEEDED (MUSCLE PAIN OR SPASM). TIZANIDINE 2018-0 Yes [id number] 2mg TAKE 1-2 [facility] 2 mg tablet 7-24 TABLETS BY it y of 00:00: MOUTH [place] 00 EVERY 8 Medical (EIGHT) Branch HOURS NEEDED (MUSCLE PAIN OR SPASM). ibandronate 2019-0 Yes [id number] 150mg Take 1 [facility] 150 mg 7-23 tablet by ity of tablet 00:00: mouth once 00 every Medical month. [facility] ibandronate 2019-0 Yes [id number] 150mg Take 1 [facility] 150 mg 7-23 tablet by ity of tablet 00:00: mouth once [place] 00 every Medical month. [facility] ibandronate 2019-0 Yes [id number] 150mg Take 1 [facility] 150 mg 7-23 tablet by ity of tablet 00:00: mouth once [place] 00 every Medical month. [facility] ibandronate 2019-0 Yes [id number] 150mg Take 1 [facility] 150 mg 7-23 tablet by ity of tablet 00:00: mouth once [place] 00 every Medical month. [facility] ibandronate 2019-0 Yes [id number] 150mg Take 1 [facility] 150 mg 7-23 tablet by ity of tablet 00:00: mouth once [place] 00 every Medical month. [facility] ibandronate 2019-0 Yes [id number] 150mg Take 1 [facility] 150 mg 7-23 tablet by ity of tablet 00:00: mouth once [place] 00 every Medical month. [facility] ibandronate 2019-0 Yes [id number] 150mg Take 1 [facility] 150 mg 7-23 tablet by ity of tablet 00:00: mouth once [place] 00 every Medical month. [facility] ibandronate 2019-0 Yes [id number] 150mg Take 1 [facility] 150 mg 7-23 tablet by ity of tablet 00:00: mouth once [place] 00 every Medical month. [facility] ibandronate 2019-0 Yes [id number] 150mg Take 1 [facility] 150 mg 7-23 tablet by ity of tablet 00:00: mouth once [place] 00 every Medical month. [facility] ibandronate 2019-0 Yes [id number] 150mg Take 1 [facility] 150 mg 7-23 tablet by ity of tablet 00:00: mouth once [place] 00 every Medical month. [facility] ibandronate 2019-0 Yes [id number] 150mg Take 1 [facility] 150 mg 7-23 tablet by ity of tablet 00:00: mouth once [place] 00 every Medical month. [facility] ibandronate 2019-0 Yes [id number] 150mg Take 1 [facility] 150 mg 7-23 tablet by ity of tablet 00:00: mouth once [place] 00 every Medical month. [facility] ibandronate 2019-0 Yes [id number] 150mg Take 1 [facility] 150 mg 7-23 tablet by ity of tablet 00:00: mouth once [place] 00 every Medical month. [facility] ibandronate 2019-0 Yes [id number] 150mg Take 1 [facility] 150 mg 7-23 tablet by ity of tablet 00:00: mouth once [place] every Medical month. [facility] ibandronate 2019-0 Yes [id number] 150mg Take 1 [facility] 150 mg 7-23 tablet by ity of tablet 00:00: mouth once [place] 00 every Medical month. [facility] ibandronate 2019-0 Yes [id number] 150mg Take 1 [facility] 150 mg 7-23 tablet by ity of tablet 00:00: mouth once [place] 00 every Medical month. [facility] ibandronate 2019-0 Yes [id number] 150mg Take 1 [facility] 150 mg 7-23 tablet by ity of tablet 00:00: mouth once [place] every Medical month. [facility] ibandronate 2019-0 Yes [id number] 150mg Take 1 [facility] 150 mg 7-23 tablet by ity of tablet 00:00: mouth once [place] 00 every Medical month. [facility] ibandronate 2019-0 Yes [id number] 150mg Take 1 [facility] 150 mg 7-23 tablet by ity of tablet 00:00: mouth once [place] 00 every Medical month. [facility] ibandronate 2019-0 Yes [id number] 150mg Take 1 [facility] 150 mg 7-23 tablet by ity of tablet 00:00: mouth once [place] 00 every Medical month. [facility] ibandronate 2019-0 Yes [id number] 150mg Take 1 [facility] 150 mg 7-23 tablet by ity of tablet 00:00: mouth once [place] 00 every Medical month. [facility] ibandronate 2019-0 Yes [id number] 150mg Take 1 [facility] 150 mg 7-23 tablet by ity of tablet 00:00: mouth once [place] 00 every Medical month. [facility] ibandronate 2019-0 Yes [id number] 150mg Take 1 [facility] 150 mg 7-23 tablet by ity of tablet 00:00: mouth once [place] 00 every Medical month. [facility] ibandronate 2019-0 Yes [id number] 150mg Take 1 [facility] 150 mg 7-23 tablet by ity of tablet 00:00: mouth once [place] 00 every Medical month. [facility] ibandronate 2019-0 Yes [id number] 150mg Take 1 [facility] 150 mg 7-23 tablet by ity of tablet 00:00: mouth once [place] 00 every Medical month. [facility] ibandronate 2019-0 Yes [id number] 150mg Take 1 [facility] 150 mg 7-23 tablet by ity of tablet 00:00: mouth once [place] 00 every Medical month. [facility] ibandronate 2019-0 Yes [id number] 150mg Take 1 [facility] 150 mg 7-23 tablet by ity of tablet 00:00: mouth once [place] 00 every Medical month. [facility] ibandronate 2019-0 Yes [id number] 150mg Take 1 [facility] 150 mg 7-23 tablet by ity of tablet 00:00: mouth once [place] 00 every Medical month. [facility] ibandronate 2019-0 Yes [id number] 150mg Take 1 [facility] 150 mg 7-23 tablet by ity of tablet 00:00: mouth once [place] 00 every Medical month. [facility] ibandronate 2019-0 Yes [id number] 150mg Take 1 [facility] 150 mg 7-23 tablet by ity of tablet 00:00: mouth once [place] 00 every Medical month. [facility] ibandronate 2019-0 Yes [id number] 150mg Take 1 [facility] 150 mg 7-23 tablet by ity of tablet 00:00: mouth once [place] 00 every Medical month. [facility] ibandronate 2019-0 Yes [id number] 150mg Take 1 [facility] 150 mg 7-23 tablet by ity of tablet 00:00: mouth once [place] 00 every Medical month. [facility] ibandronate 2019-0 Yes [id number] 150mg Take 1 [facility] 150 mg 7-23 tablet by ity of tablet 00:00: mouth once [place] 00 every Medical month. [facility] ibandronate 2019-0 Yes [id number] 150mg Take 1 [facility] 150 mg 7-23 tablet by ity of tablet 00:00: mouth once [place] 00 every Medical month. [facility] ibandronate 2019-0 Yes [id number] 150mg Take 1 [facility] 150 mg 7-23 tablet by ity of tablet 00:00: mouth once [place] 00 every Medical month. [facility] ibandronate 2019-0 Yes [id number] 150mg Take 1 [facility] 150 mg 7-23 tablet by ity of tablet 00:00: mouth once [place] 00 every Medical month. [facility] ibandronate 2019-0 Yes [id number] 150mg Take 1 [facility] 150 mg 7-23 tablet by ity of tablet 00:00: mouth once [place] 00 every Medical month. [facility] ibandronate 2019-0 Yes [id number] 150mg Take 1 [facility] 150 mg 7-23 tablet by ity of tablet 00:00: mouth once [place] 00 every Medical month. Branch ibandronate 2019-0 Yes [id number] 150mg Take 1 [facility] 150 mg 7-23 tablet by [facility] tablet 00:00: mouth once [place] every Medical month. Branch ibandronate 2019-0 Yes [id number] 150mg Take 1 [facility] 150 mg 7-23 tablet by [facility] of tablet 00:00: mouth once [place] 00 every Medical month. Branch ibandronate 2019-0 Yes [id number] 150mg Take 1 [facility] 150 mg 7-23 tablet by [facility] of tablet 00:00: mouth once [place] 00 every Medical month. Branch ibandronate 2019-0 Yes [id number] 150mg Take 1 [facility] 150 mg 7-23 tablet by [facility] of tablet 00:00: mouth once [place] every Medical month. Branch ibandronate 2019-0 Yes [id number] 150mg Take 1 [facility] 150 mg 7-23 tablet by [facility] of tablet 00:00: mouth once [place] 00 every Medical month. Branch ibandronate 2019-0 Yes [id number] 150mg Take 1 [facility] 150 mg 7-23 tablet by [facility] of tablet 00:00: mouth once [place] 00 every Medical month. Branch ibandronate 2019-0 Yes [id number] 150mg Take 1 [facility] 150 mg 7-23 tablet by [facility] of tablet 00:00: mouth once [place] 00 every Medical month. Branch ibandronate 2019-0 Yes [id number] 150mg Take 1 [facility] 150 mg 7-23 tablet by [facility] of tablet 00:00: mouth once [place] 00 every Medical month. Branch ibandronate 2019-0 Yes [id number] 150mg Take 1 [facility] 150 mg 7-23 tablet by [facility] of tablet 00:00: mouth once [place] 00 every Medical month. Branch ibandronate 2019-0 Yes [id number] 150mg Take 1 [facility] 150 mg 7-23 tablet by [facility] of tablet 00:00: mouth once [place] 00 every Medical month. Branch ibandronate 2019-0 2020- No [id number] 150mg Take 1 [facility] 150 mg 7-23 - tablet by [facility] tablet 00:00: 00:00 mouth once [place] 00 :00 every Medical month. Branch amLODIPine 2019-0 Yes [id number] 5mg Take 1 [facility] 5 mg tablet 7- tablet by [facility] of 00:00: mouth at [place] 00 bedtime. Medical Branch amLODIPine 2018-0 2019- No [id number] 5mg Take 1 [facility] 5 mg tablet 7-10 25- tablet by it y of 00:00: 00:00 mouth at [place] 00 :00 bedtime. Medical Branch amLODIPine 2019-0 2019- No [id number] 5mg Take 1 [facility] 5 mg tablet 7-10 25- tablet by it y of 00:00: 00:00 mouth at [place] 00 :00 bedtime. Medical Branch NEXIUM 40 2019-0 Yes [id number] 40mg TAKE 1 [facility] mg capsule 6-25 CAPSULE BY ity of 00:00: MOUTH [place] 00 DAILY WITH Medical BREAKFAST. Branch BRAND MEDICALLY NECESSARY. NEXIUM 40 2019-0 Yes [id number] 40mg TAKE 1 [facility] mg capsule 6-25 CAPSULE BY ity of 00:00: MOUTH [place] 00 DAILY WITH Medical BREAKFAST. Branch BRAND MEDICALLY NECESSARY. NEXIUM 40 Yes [id number] 40mg TAKE 1 [facility] mg capsule 6-25 CAPSULE BY ity of 00:00: MOUTH [place] 00 DAILY WITH Medical BREAKFAST. Branch BRAND MEDICALLY NECESSARY. NEXIUM 40 0 Yes [id number] 40mg TAKE 1 [facility] mg capsule 6-25 CAPSULE BY it[facility] of 00:00: MOUTH [place] 00 DAILY WITH Medical BREAKFAST. Branch BRAND MEDICALLY NECESSARY. NEXIUM 40 Yes [id number] 40mg TAKE 1 [facility] mg capsule 6-25 CAPSULE BY it[facility] of 00:00: MOUTH [place] 00 DAILY WITH Medical BREAKFAST. Branch BRAND MEDICALLY NECESSARY. NEXIUM 40 Yes [id number] 40mg TAKE 1 [facility] mg capsule 6-25 CAPSULE BY it[facility] of 00:00: MOUTH [place] 00 DAILY WITH Medical BREAKFAST. Branch BRAND MEDICALLY NECESSARY. NEXIUM 40 Yes [id number] 40mg TAKE 1 [facility] mg capsule 6-25 CAPSULE BY it[facility] of 00:00: MOUTH [place] 00 DAILY WITH Medical BREAKFAST. Branch BRAND MEDICALLY NECESSARY. NEXIUM 40 Yes [id number] 40mg TAKE 1 [facility] mg capsule 6-25 CAPSULE BY it[facility] of 00:00: MOUTH [place] 00 DAILY WITH Medical BREAKFAST. Branch BRAND MEDICALLY NECESSARY. NEXIUM 40 Yes [id number] 40mg TAKE 1 [facility] mg capsule 6-25 CAPSULE BY it[facility] of 00:00: MOUTH [place] 00 DAILY WITH Medical BREAKFAST. Branch BRAND MEDICALLY NECESSARY. NEXIUM 40 Yes [id number] 40mg TAKE 1 [facility] mg capsule 6-25 CAPSULE BY it[facility] of 00:00: MOUTH [place] 00 DAILY WITH Medical BREAKFAST. Branch BRAND MEDICALLY NECESSARY. NEXIUM 40 0 Yes [id number] 40mg TAKE 1 [facility] mg capsule 6-25 CAPSULE BY it[facility] of 00:00: MOUTH [place] 00 DAILY WITH Medical BREAKFAST. Branch BRAND MEDICALLY NECESSARY. NEXIUM 40 0 Yes [id number] 40mg TAKE 1 [facility] mg capsule 6-25 CAPSULE BY it[facility] of 00:00: MOUTH [place] 00 DAILY WITH Medical BREAKFAST. Branch BRAND MEDICALLY NECESSARY. NEXIUM 40 Yes [id number] 40mg TAKE 1 [facility] mg capsule 6-25 CAPSULE BY it[facility] of 00:00: MOUTH [place] 00 DAILY WITH Medical BREAKFAST. Branch BRAND MEDICALLY NECESSARY. NEXIUM 40 2019-0 Yes [id number] 40mg TAKE 1 [facility] mg capsule 6-25 CAPSULE BY it[facility] of 00:00: MOUTH [place] 00 DAILY WITH Medical BREAKFAST. Branch BRAND MEDICALLY NECESSARY. NEXIUM 40 0 Yes [id number] 40mg TAKE 1 [facility] mg capsule 6-25 CAPSULE BY it[facility] of 00:00: MOUTH [place] 00 DAILY WITH Medical BREAKFAST. Branch BRAND MEDICALLY NECESSARY. NEXIUM 40 Yes [id number] 40mg TAKE 1 [facility] mg capsule 6-25 CAPSULE BY it[facility] of 00:00: MOUTH [place] 00 DAILY WITH Medical BREAKFAST. Branch BRAND MEDICALLY NECESSARY. NEXIUM 40 Yes [id number] 40mg TAKE 1 [facility] mg capsule 6-25 CAPSULE BY it[facility] of 00:00: MOUTH [place] 00 DAILY WITH Medical BREAKFAST. Branch BRAND MEDICALLY NECESSARY. NEXIUM 40 0 Yes [id number] 40mg TAKE 1 [facility] mg capsule 6-25 CAPSULE BY [facility] of 00:00: MOUTH [place] 00 DAILY WITH Medical BREAKFAST. Branch BRAND MEDICALLY NECESSARY. NEXIUM 40 Yes [id number] 40mg TAKE 1 [facility] mg capsule 6-25 CAPSULE BY [facility] of 00:00: MOUTH [place] 00 DAILY WITH Medical BREAKFAST. Branch BRAND MEDICALLY NECESSARY. NEXIUM 40 0 Yes [id number] 40mg TAKE 1 [facility] mg capsule 6-25 CAPSULE BY it[facility] of 00:00: MOUTH [place] 00 DAILY WITH Medical BREAKFAST. Branch BRAND MEDICALLY NECESSARY. NEXIUM 40 Yes [id number] 40mg TAKE 1 [facility] mg capsule 6-25 CAPSULE BY it[facility] of 00:00: MOUTH [place] 00 DAILY WITH Medical BREAKFAST. Branch BRAND MEDICALLY NECESSARY. NEXIUM 40 0 Yes [id number] 40mg TAKE 1 [facility] mg capsule 6-25 CAPSULE BY it[facility] of 00:00: MOUTH [place] 00 DAILY WITH Medical BREAKFAST. Branch BRAND MEDICALLY NECESSARY. NEXIUM 40 2018-0 Yes [id number] 40mg TAKE 1 [facility] mg capsule 6-25 CAPSULE BY [facility] of 00:00: MOUTH [place] 00 DAILY WITH Medical BREAKFAST. Branch BRAND MEDICALLY NECESSARY. NEXIUM 40 2018-0 Yes [id number] 40mg TAKE 1 [facility] mg capsule 6-25 CAPSULE BY it[facility] of 00:00: MOUTH [place] 00 DAILY WITH Medical BREAKFAST. Branch BRAND MEDICALLY NECESSARY. NEXIUM 40 2018-0 Yes [id number] 40mg TAKE 1 [facility] mg capsule 6-25 CAPSULE BY it[facility] of 00:00: MOUTH [place] 00 DAILY WITH Medical BREAKFAST. Branch BRAND MEDICALLY NECESSARY. NEXIUM 40 Yes [id number] 40mg TAKE 1 [facility] mg capsule 6-25 CAPSULE BY it[facility] of 00:00: MOUTH [place] 00 DAILY WITH Medical BREAKFAST. Branch BRAND MEDICALLY NECESSARY. NEXIUM 40 Yes [id number] 40mg TAKE 1 [facility] mg capsule 6-25 CAPSULE BY it[facility] of 00:00: MOUTH [place] 00 DAILY WITH Medical BREAKFAST. Branch BRAND MEDICALLY NECESSARY. NEXIUM 40 Yes [id number] 40mg TAKE 1 [facility] mg capsule 6-25 CAPSULE BY it[facility] of 00:00: MOUTH [place] 00 DAILY WITH Medical BREAKFAST. Branch BRAND MEDICALLY NECESSARY. NEXIUM 40 Yes [id number] 40mg TAKE 1 [facility] mg capsule 6-25 CAPSULE BY it[facility] of 00:00: MOUTH [place] 00 DAILY WITH Medical BREAKFAST. Branch BRAND MEDICALLY NECESSARY. NEXIUM 40 Yes [id number] 40mg TAKE 1 [facility] mg capsule 6-25 CAPSULE BY it[facility] of 00:00: MOUTH [place] 00 DAILY WITH Medical BREAKFAST. Branch BRAND MEDICALLY NECESSARY. NEXIUM 40 Yes [id number] 40mg TAKE 1 [facility] mg capsule 6-25 CAPSULE BY [facility] of 00:00: MOUTH [place] 00 DAILY WITH Medical BREAKFAST. Branch BRAND MEDICALLY NECESSARY. NEXIUM 40 Yes [id number] 40mg TAKE 1 [facility] mg capsule 6-25 CAPSULE BY it[facility] of 00:00: MOUTH [place] 00 DAILY WITH Medical BREAKFAST. Branch BRAND MEDICALLY NECESSARY. NEXIUM 40 Yes [id number] 40mg TAKE 1 [facility] mg capsule 6-25 CAPSULE BY it[facility] of 00:00: MOUTH [place] 00 DAILY WITH Medical BREAKFAST. Branch BRAND MEDICALLY NECESSARY. NEXIUM 40 Yes [id number] 40mg TAKE 1 [facility] mg capsule 6-25 CAPSULE BY it[facility] of 00:00: MOUTH [place] 00 DAILY WITH Medical BREAKFAST. Branch BRAND MEDICALLY NECESSARY. NEXIUM 40 Yes [id number] 40mg TAKE 1 [facility] mg capsule 6-25 CAPSULE BY it[facility] of 00:00: MOUTH [place] 00 DAILY WITH Medical BREAKFAST. Branch BRAND MEDICALLY NECESSARY. NEXIUM 40 Yes [id number] 40mg TAKE 1 [facility] mg capsule 6-25 CAPSULE BY [facility] of 00:00: MOUTH [place] 00 DAILY WITH Medical BREAKFAST. Branch BRAND MEDICALLY NECESSARY. NEXIUM 40 2018-0 Yes [id number] 40mg TAKE 1 [facility] mg capsule 6-25 CAPSULE BY [facility] of 00:00: MOUTH [place] 00 DAILY WITH Medical BREAKFAST. Branch BRAND MEDICALLY NECESSARY. NEXIUM 40 2018- Yes [id number] 40mg TAKE 1 [facility] mg capsule 6-25 CAPSULE BY it[facility] of 00:00: MOUTH [place] 00 DAILY WITH Medical BREAKFAST. Branch BRAND MEDICALLY NECESSARY. NEXIUM 40 Yes [id number] 40mg TAKE 1 [facility] mg capsule 6-25 CAPSULE BY it[facility] of 00:00: MOUTH [place] 00 DAILY WITH Medical BREAKFAST. Branch BRAND MEDICALLY NECESSARY. NEXIUM 40 Yes [id number] 40mg TAKE 1 [facility] mg capsule 6-25 CAPSULE BY ity of 00:00: MOUTH [place] 00 DAILY WITH Medical BREAKFAST. Branch BRAND MEDICALLY NECESSARY. NEXIUM 40 Yes [id number] 40mg TAKE 1 [facility] mg capsule 6-25 CAPSULE BY it[facility] of 00:00: MOUTH [place] 00 DAILY WITH Medical BREAKFAST. Branch BRAND MEDICALLY NECESSARY. NEXIUM 40 Yes [id number] 40mg TAKE 1 [facility] mg capsule 6-25 CAPSULE BY ity of 00:00: MOUTH [place] 00 DAILY WITH Medical BREAKFAST. Branch BRAND MEDICALLY NECESSARY. NEXIUM 40 0 Yes [id number] 40mg TAKE 1 [facility] mg capsule 6-25 CAPSULE BY it[facility] of 00:00: MOUTH [place] 00 DAILY WITH Medical BREAKFAST. Branch BRAND MEDICALLY NECESSARY. NEXIUM 40 Yes [id number] 40mg TAKE 1 [facility] mg capsule 6-25 CAPSULE BY [facility] of 00:00: MOUTH [place] 00 DAILY WITH Medical BREAKFAST. Branch BRAND MEDICALLY NECESSARY. NEXIUM 40 Yes [id number] 40mg TAKE 1 [facility] mg capsule 6-25 CAPSULE BY ity of 00:00: MOUTH [place] 00 DAILY WITH Medical BREAKFAST. Branch BRAND MEDICALLY NECESSARY. NEXIUM 40 2018-0 Yes [id number] 40mg TAKE 1 [facility] mg capsule 6-25 CAPSULE BY ity of 00:00: MOUTH [place] 00 DAILY WITH Medical BREAKFAST. Branch BRAND MEDICALLY NECESSARY. NEXIUM 40 Yes [id number] 40mg TAKE 1 [facility] mg capsule 6-25 CAPSULE BY ity of 00:00: MOUTH [place] 00 DAILY WITH Medical BREAKFAST. Branch BRAND MEDICALLY NECESSARY. NEXIUM 40 2020- No [id number] 40mg TAKE 1 [facility] mg capsule 6-25 07-28 CAPSULE BY it y of 00:00: 00:00 MOUTH [place] 00 :00 DAILY WITH Medical BREAKFAST. Branch BRAND MEDICALLY NECESSARY. TRIAMTERENE Yes [id number] TAKE 2 [facility] -HYDROCHLOR 5-30 TABLETS BY it y of OTHIAZID 00:00: MOUTH [place] 37.5-25 mg 00 DAILY. Medical tablet Branch TRIAMTERENE Yes [id number] TAKE 2 [facility] -HYDROCHLOR 5-30 TABLETS BY it y of OTHIAZID 00:00: MOUTH [place] 37.5-25 mg 00 DAILY. Medical tablet Branch TRIAMTERENE Yes [id number] TAKE 2 [facility] -HYDROCHLOR 5-30 TABLETS BY it y of OTHIAZID 00:00: MOUTH [place] 37.5-25 mg 00 DAILY. Medical tablet Branch TRIAMTERENE Yes [id number] TAKE 2 [facility] -HYDROCHLOR 5-30 TABLETS BY it y of OTHIAZID 00:00: MOUTH [place] 37.5-25 mg 00 DAILY. Medical tablet Branch TRIAMTERENE Yes [id number] TAKE 2 [facility] -HYDROCHLOR 5-30 TABLETS BY it y of OTHIAZID 00:00: MOUTH [place] 37.5-25 mg 00 DAILY. Medical tablet Branch TRIAMTERENE Yes [id number] TAKE 2 [facility] -HYDROCHLOR 5-30 TABLETS BY it y of OTHIAZID 00:00: MOUTH [place] 37.5-25 mg 00 DAILY. Medical tablet Branch TRIAMTERENE Yes [id number] TAKE 2 [facility] -HYDROCHLOR 5-30 TABLETS BY it y of OTHIAZID 00:00: MOUTH [place] 37.5-25 mg 00 DAILY. Medical tablet Branch TRIAMTERENE Yes [id number] TAKE 2 [facility] -HYDROCHLOR 5-30 TABLETS BY it y of OTHIAZID 00:00: MOUTH [place] 37.5-25 mg 00 DAILY. Medical tablet Branch TRIAMTERENE Yes [id number] TAKE 2 [facility] -HYDROCHLOR 5-30 TABLETS BY it y of OTHIAZID 00:00: MOUTH [place] 37.5-25 mg 00 DAILY. Medical tablet Branch TRIAMTERENE Yes [id number] TAKE 2 [facility] -HYDROCHLOR 5-30 TABLETS BY it y of OTHIAZID 00:00: MOUTH [place] 37.5-25 mg 00 DAILY. Medical tablet Branch TRIAMTERENE 2019-0 Yes [id number] TAKE 2 [facility] -HYDROCHLOR 5-30 TABLETS BY it y of OTHIAZID 00:00: MOUTH [place] 37.5-25 mg 00 DAILY. Medical tablet Branch TRIAMTERENE 2018-0 Yes [id number] TAKE 2 [facility] -HYDROCHLOR 5-30 TABLETS BY it y of OTHIAZID 00:00: MOUTH [place] 37.5-25 mg 00 DAILY. Medical tablet Branch TRIAMTERENE 2018-0 Yes [id number] TAKE 2 [facility] -HYDROCHLOR 5-30 TABLETS BY it y of OTHIAZID 00:00: MOUTH [place] 37.5-25 mg 00 DAILY. Medical tablet Branch LEVOTHYROXI 2019-0 Yes [id number] TAKE 1 [facility] [place] 25 mcg 5-13 TABLET BY ity o f tablet 00:00: MOUTH [place] 00 EVERY Medical MORNING. Branch LEVOTHYROXI 2019-0 Yes [id number] TAKE 1 [facility] [place] 25 mcg 5-13 TABLET BY ity o f tablet 00:00: MOUTH [place] 00 EVERY Medical MORNING. Branch LEVOTHYROXI 2019-0 Yes [id number] TAKE 1 [facility] [place] 25 mcg 5-13 TABLET BY ity o f tablet 00:00: MOUTH [place] 00 EVERY Medical MORNING. Branch LEVOTHYROXI 2019-0 Yes [id number] TAKE 1 [facility] [place] 25 mcg 5-13 TABLET BY ity o f tablet 00:00: MOUTH [place] 00 EVERY Medical MORNING. Branch LEVOTHYROXI 2019-0 Yes [id number] TAKE 1 [facility] [place] 25 mcg 5-13 TABLET BY ity o f tablet 00:00: MOUTH [place] 00 EVERY Medical MORNING. Branch LEVOTHYROXI 2019-0 Yes [id number] TAKE 1 [facility] [place] 25 mcg 5-13 TABLET BY ity o f tablet 00:00: MOUTH [place] 00 EVERY Medical MORNING. Branch LEVOTHYROXI 2019-0 Yes [id number] TAKE 1 [facility] [place] 25 mcg 5-13 TABLET BY ity o f tablet 00:00: MOUTH [place] 00 EVERY Medical MORNING. Branch LEVOTHYROXI 2019-0 Yes [id number] TAKE 1 [facility] [place] 25 mcg 5-13 TABLET BY ity o f tablet 00:00: MOUTH [place] 00 EVERY Medical MORNING. Branch LEVOTHYROXI 2019-0 Yes [id number] TAKE 1 [facility] [place] 25 mcg 5-13 TABLET BY ity o f tablet 00:00: MOUTH [place] 00 EVERY Medical MORNING. Branch LEVOTHYROXI 2019-0 Yes [id number] TAKE 1 [facility] [place] 25 mcg 5-13 TABLET BY ity o f tablet 00:00: MOUTH [place] 00 EVERY Medical MORNING. Branch LEVOTHYROXI 2019-0 Yes [id number] TAKE 1 [facility] [place] 25 mcg 5-13 TABLET BY ity o f tablet 00:00: MOUTH [place] 00 EVERY Medical MORNING. Branch LEVOTHYROXI 2019-0 Yes [id number] TAKE 1 [facility] [place] 25 mcg 5-13 TABLET BY ity o f tablet 00:00: MOUTH [place] 00 EVERY Medical MORNING. Branch LEVOTHYROXI 2019-0 Yes [id number] TAKE 1 [facility] [place] 25 mcg 5-13 TABLET BY ity o f tablet 00:00: MOUTH [place] 00 EVERY Medical MORNING. Branch LEVOTHYROXI 2019-0 Yes [id number] TAKE 1 [facility] [place] 25 mcg 5-13 TABLET BY ity o f tablet 00:00: MOUTH [place] 00 EVERY Medical MORNING. Branch LEVOTHYROXI 2019-0 Yes [id number] TAKE 1 [facility] [place] 25 mcg 5-13 TABLET BY ity o f tablet 00:00: MOUTH [place] 00 EVERY Medical MORNING. Branch LEVOTHYROXI 2019-0 Yes [id number] TAKE 1 [facility] [place] 25 mcg 5-13 TABLET BY ity o f tablet 00:00: MOUTH [place] 00 EVERY Medical MORNING. Branch LEVOTHYROXI 2019-0 Yes [id number] TAKE 1 [facility] 25 mcg 5-13 TABLET BY ity o f tablet 00:00: MOUTH [place] 00 EVERY Medical MORNING. Branch LEVOTHYROXI 2019-0 Yes [id number] TAKE 1 [facility] 25 mcg 5-13 TABLET BY ity o f tablet 00:00: MOUTH [place] 00 EVERY Medical MORNING. Branch LEVOTHYROXI 2019-0 Yes [id number] TAKE 1 [facility] 25 mcg 5-13 TABLET BY ity o f tablet 00:00: MOUTH [place] 00 EVERY Medical MORNING. Branch LEVOTHYROXI 2019-0 Yes [id number] TAKE 1 [facility] 25 mcg 5-13 TABLET BY ity o f tablet 00:00: MOUTH [place] 00 EVERY Medical MORNING. Branch LEVOTHYROXI 2019-0 Yes [id number] TAKE 1 [facility] 25 mcg 5-13 TABLET BY it[facility] o f tablet 00:00: MOUTH [place] 00 EVERY Medical MORNING. Branch LEVOTHYROXI 2019-0 Yes [id number] TAKE 1 [facility] [place] 25 mcg 5-13 TABLET BY ity o f tablet 00:00: MOUTH [place] 00 EVERY Medical MORNING. Branch LEVOTHYROXI 2019-0 Yes [id number] TAKE 1 [facility] 25 mcg 5-13 TABLET BY ity o f tablet 00:00: MOUTH [place] 00 EVERY Medical MORNING. Branch LEVOTHYROXI 2019-0 Yes [id number] TAKE 1 [facility] [place] 25 mcg 5-13 TABLET BY ity o f tablet 00:00: MOUTH [place] 00 EVERY Medical MORNING. Branch LEVOTHYROXI 2019-0 Yes [id number] TAKE 1 [facility] [place] 25 mcg 5-13 TABLET BY ity o f tablet 00:00: MOUTH [place] 00 EVERY Medical MORNING. Branch LEVOTHYROXI 2019-0 Yes [id number] TAKE 1 [facility] [place] 25 mcg 5-13 TABLET BY it[facility] o f tablet 00:00: MOUTH [place] 00 EVERY Medical MORNING. Branch LEVOTHYROXI 2019-0 Yes [id number] TAKE 1 [facility] [place] 25 mcg 5-13 TABLET BY it[facility] o f tablet 00:00: MOUTH [place] 00 EVERY Medical MORNING. Branch LEVOTHYROXI 2019-0 Yes [id number] TAKE 1 [facility] [place] 25 mcg 5-13 TABLET BY [facility] o f tablet 00:00: MOUTH [place] 00 EVERY Medical MORNING. Branch LEVOTHYROXI 2019-0 2020- No [id number] TAKE 1 [facility] [place] 25 mcg 5-13 03-24 TABLET BY ity of tablet 00:00: 00:00 MOUTH [place] 00 :00 EVERY Medical MORNING. Branch traZODONE 2019-0 Yes [id number] 100mg Take 1 [facility] 100 mg 4-11 tablet by ity of tablet 00:00: mouth at [place] 00 bedtime. Medical For Branch insomnia. traZODONE 2019-0 Yes [id number] 100mg Take 1 [facility] 100 mg 4-11 tablet by ity of tablet 00:00: mouth at [place] 00 bedtime. Medical For Branch insomnia. traZODONE 2019-0 Yes [id number] 100mg Take 1 [facility] 100 mg 4-11 tablet by ity of tablet 00:00: mouth at [place] 00 bedtime. Medical For Branch insomnia. traZODONE 2019-0 Yes [id number] 100mg Take 1 [facility] 100 mg 4-11 tablet by [facility] of tablet 00:00: mouth at [place] [address] bedtime. Medical For Branch insomnia. traZODONE 2019-0 Yes [id number] 100mg Take 1 [facility] 100 mg 4-11 tablet by [facility] of tablet 00:00: mouth at [place] [address] bedtime. Medical For Branch insomnia. traZODONE 2019-0 Yes [id number] 100mg Take 1 [facility] 100 mg 4-11 tablet by [facility] of tablet 00:00: mouth at [place] [address] bedtime. Medical For Branch insomnia. traZODONE 2019-0 Yes [id number] 100mg Take 1 [facility] 100 mg 4-11 tablet by [facility] of tablet 00:00: mouth at [place] 00 bedtime. Medical For Branch insomnia. traZODONE 2019-0 Yes [id number] 100mg Take 1 [facility] 100 mg 4-11 tablet by [facility] of tablet 00:00: mouth at [place] [address] bedtime. Medical For Branch insomnia. traZODONE 2019-0 Yes [id number] 100mg Take 1 [facility] 100 mg 4-11 tablet by [facility] of tablet 00:00: mouth at [place] [address] bedtime. Medical For Branch insomnia. traZODONE 2019-0 Yes [id number] 100mg Take 1 [facility] 100 mg 4-11 tablet by it[facility] of tablet 00:00: mouth at [place] [address] bedtime. Medical For Branch insomnia. traZODONE 2019-0 Yes [id number] 100mg Take 1 [facility] 100 mg 4-11 tablet by it[facility] of tablet 00:00: mouth at [place] [address] bedtime. Medical For Branch insomnia. traZODONE 2019-0 Yes [id number] 100mg Take 1 [facility] 100 mg 4-11 tablet by it[facility] of tablet 00:00: mouth at [place] [address] bedtime. Medical For Branch insomnia. traZODONE 2019-0 Yes [id number] 100mg Take 1 [facility] 100 mg 4-11 tablet by [facility] of tablet 00:00: mouth at [place] 00 bedtime. Medical For Branch insomnia. metformin 2019-0 Yes [id number] 500mg Take 1 [facility] ER 500 mg 4-09 tablet by ity o f 24 hr 00:00: mouth [place] tablet 00 daily with Medical breakfast. Branch metformin 2019-0 Yes [id number] 500mg Take 1 [facility] ER 500 mg 4-09 tablet by ity o f 24 hr 00:00: mouth [place] tablet 00 daily with Medical breakfast. Branch metformin Yes [id number] 500mg Take 1 [facility] ER 500 mg 4-09 tablet by ity o f 24 hr 00:00: mouth [place] tablet 00 daily with Medical breakfast. Branch metformin Yes [id number] 500mg Take 1 [facility] ER 500 mg 4-09 tablet by ity o f 24 hr 00:00: mouth [place] tablet 00 daily with Medical breakfast. Branch metformin Yes [id number] 500mg Take 1 [facility] ER 500 mg 4-09 tablet by ity o f 24 hr 00:00: mouth [place] tablet 00 daily with Medical breakfast. Branch metformin Yes [id number] 500mg Take 1 [facility] ER 500 mg 4-09 tablet by ity o f 24 hr 00:00: mouth [place] tablet 00 daily with Medical breakfast. Branch metformin Yes [id number] 500mg Take 1 [facility] n[facility] ER 500 mg 4-09 tablet by ity o f 24 hr 00:00: mouth [place] tablet 00 daily with Medical breakfast. Branch metformin Yes [id number] 500mg Take 1 [facility] n[facility] ER 500 mg 4-09 tablet by ity o f 24 hr 00:00: mouth [place] tablet 00 daily with Medical breakfast. Branch metformin Yes [id number] 500mg Take 1 [facility] ER 500 mg 4-09 tablet by ity o f 24 hr 00:00: mouth [place] tablet 00 daily with Medical breakfast. Branch metformin Yes [id number] 500mg Take 1 [facility] ER 500 mg 4-09 tablet by ity o f 24 hr 00:00: mouth [place] tablet 00 daily with Medical breakfast. Branch metformin Yes [id number] 500mg Take 1 [facility] ER 500 mg 4-09 tablet by ity o f 24 hr 00:00: mouth [place] tablet 00 daily with Medical breakfast. Branch metformin Yes [id number] 500mg Take 1 [facility] ER 500 mg 4-09 tablet by ity o f 24 hr 00:00: mouth [place] tablet 00 daily with Medical breakfast. Branch metformin Yes [id number] 500mg Take 1 [facility] n[facility] ER 500 mg 4-09 tablet by ity o f 24 hr 00:00: mouth [place] tablet 00 daily with Medical breakfast. Branch ciclopirox 2018- Yes [id number] Apply to [facility] 8 % 3-28 area(s) at ity of solution 00:00: bedtime. [place] 00 Apply to Medical Nails. Branch ciclopirox 2019-0 Yes [id number] Apply to [facility] 8 % 3-28 area(s) at ity of solution 00:00: bedtime. [place] 00 Apply to Medical Nails. Branch ciclopirox 2019-0 Yes [id number] Apply to [facility] 8 % 3-28 area(s) at ity of solution 00:00: bedtime. [place] 00 Apply to Medical Nails. Branch ciclopirox 2019-0 Yes [id number] Apply to [facility] 8 % 3-28 area(s) at ity of solution 00:00: bedtime. [place] 00 Apply to Medical Nails. Branch ciclopirox 2019-0 Yes [id number] Apply to [facility] 8 % 3-28 area(s) at ity of solution 00:00: bedtime. [place] 00 Apply to Medical Nails. Branch ciclopirox 2019-0 Yes [id number] Apply to [facility] 8 % 3-28 area(s) at ity of solution 00:00: bedtime. [place] 00 Apply to Medical Nails. Branch ciclopirox 2019-0 Yes [id number] Apply to [facility] 8 % 3-28 area(s) at ity of solution 00:00: bedtime. [place] 00 Apply to Medical Nails. Branch ciclopirox 2019-0 Yes [id number] Apply to [facility] 8 % 3-28 area(s) at ity of solution 00:00: bedtime. [place] 00 Apply to Medical Nails. Branch ciclopirox 2019-0 Yes [id number] Apply to [facility] 8 % 3-28 area(s) at ity of solution 00:00: bedtime. [place] 00 Apply to Medical Nails. Branch ciclopirox 2019-0 Yes [id number] Apply to [facility] 8 % 3-28 area(s) at ity of solution 00:00: bedtime. [place] 00 Apply to Medical Nails. Branch ciclopirox 2019-0 Yes [id number] Apply to [facility] 8 % 3-28 area(s) at ity of solution 00:00: bedtime. [place] 00 Apply to Medical Nails. Branch ciclopirox 2019-0 Yes [id number] Apply to [facility] 8 % 3-28 area(s) at ity of solution 00:00: bedtime. [place] 00 Apply to Medical Nails. Branch ciclopirox 2019-0 Yes [id number] Apply to [facility] 8 % 3-28 area(s) at ity of solution 00:00: bedtime. [place] 00 Apply to Medical Nails. Branch ciclopirox 2019-0 Yes [id number] Apply to [facility] 8 % 3-28 area(s) at ity of solution 00:00: bedtime. [place] 00 Apply to Medical Nails. Branch ciclopirox 2019-0 Yes [id number] Apply to [facility] 8 % 3-28 area(s) at ity of solution 00:00: bedtime. [place] 00 Apply to Medical Nails. Branch ciclopirox 2019-0 Yes [id number] Apply to [facility] 8 % 3-28 area(s) at ity of solution 00:00: bedtime. [place] 00 Apply to Medical Nails. Branch ciclopirox 2019-0 Yes [id number] Apply to [facility] 8 % 3-28 area(s) at ity of solution 00:00: bedtime. [place] 00 Apply to Medical Nails. Branch ciclopirox 2019-0 Yes [id number] Apply to [facility] 8 % 3-28 area(s) at ity of solution 00:00: bedtime. [place] 00 Apply to Medical Nails. Branch ciclopirox 2019-0 Yes [id number] Apply to [facility] 8 % 3-28 area(s) at ity of solution 00:00: bedtime. [place] 00 Apply to Medical Nails. Branch ciclopirox 2019-0 Yes [id number] Apply to [facility] 8 % 3-28 area(s) at ity of solution 00:00: bedtime. [place] 00 Apply to Medical Nails. Branch ciclopirox 2019-0 Yes [id number] Apply to [facility] 8 % 3-28 area(s) at ity of solution 00:00: bedtime. [place] 00 Apply to Medical Nails. Branch ciclopirox 2019-0 Yes [id number] Apply to [facility] 8 % 3-28 area(s) at ity of solution 00:00: bedtime. [place] 00 Apply to Medical Nails. Branch ciclopirox 2019-0 Yes [id number] Apply to [facility] 8 % 3-28 area(s) at ity of solution 00:00: bedtime. [place] 00 Apply to Medical Nails. Branch ciclopirox 2019-0 Yes [id number] Apply to [facility] 8 % 3-28 area(s) at ity of solution 00:00: bedtime. [place] 00 Apply to Medical Nails. Branch ciclopirox 2019-0 Yes [id number] Apply to [facility] 8 % 3-28 area(s) at ity of solution 00:00: bedtime. [place] 00 Apply to Medical Nails. Branch ciclopirox 2019-0 Yes [id number] Apply to [facility] 8 % 3-28 area(s) at ity of solution 00:00: bedtime. [place] 00 Apply to Medical Nails. Branch ciclopirox 2019-0 Yes [id number] Apply to [facility] 8 % 3-28 area(s) at ity of solution 00:00: bedtime. [place] 00 Apply to Medical Nails. Branch ciclopirox 2019-0 Yes [id number] Apply to [facility] 8 % 3-28 area(s) at ity of solution 00:00: bedtime. [place] 00 Apply to [facility] ciclopirox 2019-0 Yes [id number] Apply to [facility] 8 % 3-28 area(s) at ity of solution 00:00: bedtime. [place] 00 Apply to [facility] Branch ciclopirox 2019-0 Yes [id number] Apply to [facility] 8 % 3-28 area(s) at ity of solution 00:00: bedtime. [place] 00 Apply to [facility] Branch ciclopirox 2019-0 Yes [id number] Apply to [facility] 8 % 3-28 area(s) at ity of solution 00:00: bedtime. [place] 00 Apply to [facility]. Branch ciclopirox 2019-0 Yes [id number] Apply to [facility] 8 % 3-28 area(s) at ity of solution 00:00: bedtime. [place] 00 Apply to [facility]. Branch ciclopirox 2019-0 Yes [id number] Apply to [facility] 8 % 3-28 area(s) at ity of solution 00:00: bedtime. [place] 00 Apply to [facility] ciclopirox 2019-0 Yes [id number] Apply to [facility] 8 % 3-28 area(s) at ity of solution 00:00: bedtime. [place] 00 Apply to [facility] ciclopirox 2019-0 Yes [id number] Apply to [facility] 8 % 3-28 area(s) at ity of solution 00:00: bedtime. [place] 00 Apply to [facility] ciclopirox 2019-0 Yes [id number] Apply to [facility] 8 % 3-28 area(s) at ity of solution 00:00: bedtime. [place] 00 Apply to [facility] ciclopirox 2019-0 Yes [id number] Apply to [facility] 8 % 3-28 area(s) at ity of solution 00:00: bedtime. [place] 00 Apply to [facility] ciclopirox 2019-0 Yes [id number] Apply to [facility] 8 % 3-28 area(s) at ity of solution 00:00: bedtime. [place] 00 Apply to [facility] ciclopirox 2019-0 Yes [id number] Apply to [facility] 8 % 3-28 area(s) at ity of solution 00:00: bedtime. [place] 00 Apply to [facility] ciclopirox 2019-0 Yes [id number] Apply to [facility] 8 % 3-28 area(s) at ity of solution 00:00: bedtime. [place] 00 Apply to [facility] ciclopirox 2019-0 Yes [id number] Apply to [facility] 8 % 3-28 area(s) at ity of solution 00:00: bedtime. [place] 00 Apply to [facility] ciclopirox 2019-0 Yes [id number] Apply to [facility] 8 % 3-28 area(s) at ity of solution 00:00: bedtime. [place] 00 Apply to [facility] ciclopirox 2019-0 Yes [id number] Apply to [facility] 8 % 3-28 area(s) at ity of solution 00:00: bedtime. [place] 00 Apply to [facility] ciclopirox 2019-0 Yes [id number] Apply to [facility] 8 % 3-28 area(s) at ity of solution 00:00: bedtime. [place] 00 Apply to [facility] ciclopirox 2019-0 Yes [id number] Apply to [facility] 8 % 3-28 area(s) at ity of solution 00:00: bedtime. [place] 00 Apply to [facility] ciclopirox 2019-0 Yes [id number] Apply to [facility] 8 % 3-28 area(s) at ity of solution 00:00: bedtime. [place] 00 Apply to [facility] ciclopirox 2019-0 Yes [id number] Apply to [facility] 8 % 3-28 area(s) at ity of solution 00:00: bedtime. [place] 00 Apply to [facility] ciclopirox 2019-0 Yes [id number] Apply to [facility] 8 % 3-28 area(s) at ity of solution 00:00: bedtime. [place] 00 Apply to [facility] ciclopirox 2019-0 Yes [id number] Apply to [facility] 8 % 3-28 area(s) at ity of solution 00:00: bedtime. [place] 00 Apply to [facility] ciclopirox 2019-0 Yes [id number] Apply to [facility] 8 % 3-28 area(s) at ity of solution 00:00: bedtime. [place] 00 Apply to [facility] ciclopirox 2019-0 Yes [id number] Apply to [facility] 8 % 3-28 area(s) at ity of solution 00:00: bedtime. [place] 00 Apply to [facility] ciclopirox 2019-0 Yes [id number] Apply to [facility] 8 % 3-28 area(s) at ity of solution 00:00: bedtime. [place] 00 Apply to [facility] ciclopirox 2019-0 Yes [id number] Apply to [facility] 8 % 3-28 area(s) at ity of solution 00:00: bedtime. [place] 00 Apply to [facility] ciclopirox 2019-0 Yes [id number] Apply to [facility] 8 % 3-28 area(s) at ity of solution 00:00: bedtime. [place] 00 Apply to [facility] ciclopirox 2019-0 Yes [id number] Apply to [facility] 8 % 3-28 area(s) at ity of solution 00:00: bedtime. [place] 00 Apply to [facility] ciclopirox 2019-0 Yes [id number] Apply to [facility] 8 % 3-28 area(s) at ity of solution 00:00: bedtime. [place] 00 Apply to [facility] ciclopirox 2019-0 Yes [id number] Apply to [facility] 8 % 3-28 area(s) at ity of solution 00:00: bedtime. [place] 00 Apply to [facility] ciclopirox 2019-0 Yes [id number] Apply to [facility] 8 % 3-28 area(s) at ity of solution 00:00: bedtime. [place] 00 Apply to [facility] ciclopirox 2019-0 Yes [id number] Apply to [facility] 8 % 3-28 area(s) at ity of solution 00:00: bedtime. [place] 00 Apply to [facility] ciclopirox 2019-0 Yes [id number] Apply to [facility] 8 % 3-28 area(s) at ity of solution 00:00: bedtime. [place] 00 Apply to [facility] ciclopirox 2019-0 Yes [id number] Apply to [facility] 8 % 3-28 area(s) at ity of solution 00:00: bedtime. [place] 00 Apply to [facility] ciclopirox 2019-0 Yes [id number] Apply to [facility] 8 % 3-28 area(s) at ity of solution 00:00: bedtime. [place] 00 Apply to [facility] ciclopirox 2019-0 Yes [id number] Apply to [facility] 8 % 3-28 area(s) at ity of solution 00:00: bedtime. [place] 00 Apply to [facility] ciclopirox 2019-0 Yes [id number] Apply to [facility] 8 % 3-28 area(s) at ity of solution 00:00: bedtime. [place] 00 Apply to [facility] ciclopirox 2019-0 Yes [id number] Apply to [facility] 8 % 3-28 area(s) at ity of solution 00:00: bedtime. [place] 00 Apply to [facility] ciclopirox 2019-0 Yes [id number] Apply to [facility] 8 % 3-28 area(s) at ity of solution 00:00: bedtime. [place] 00 Apply to [facility] ciclopirox 2019-0 Yes [id number] Apply to [facility] 8 % 3-28 area(s) at ity of solution 00:00: bedtime. [place] 00 Apply to [facility] ciclopirox 2019-0 Yes [id number] Apply to [facility] 8 % 3-28 area(s) at ity of solution 00:00: bedtime. [place] 00 Apply to [facility] ciclopirox 2019-0 Yes [id number] Apply to [facility] 8 % 3-28 area(s) at ity of solution 00:00: bedtime. [place] 00 Apply to [facility] ciclopirox 2019-0 Yes [id number] Apply to [facility] 8 % 3-28 area(s) at ity of solution 00:00: bedtime. [place] 00 Apply to [facility] ciclopirox 2019-0 Yes [id number] Apply to [facility] 8 % 3-28 area(s) at ity of solution 00:00: bedtime. [place] 00 Apply to [facility] ciclopirox 2019-0 Yes [id number] Apply to [facility] 8 % 3-28 area(s) at ity of solution 00:00: bedtime. [place] 00 Apply to [facility] ciclopirox 2019-0 Yes [id number] Apply to [facility] 8 % 3-28 area(s) at ity of solution 00:00: bedtime. [place] 00 Apply to [facility] ciclopirox 2019-0 Yes [id number] Apply to [facility] 8 % 3-28 area(s) at ity of solution 00:00: bedtime. [place] 00 Apply to [facility] ciclopirox 2019-0 Yes [id number] Apply to [facility] 8 % 3-28 area(s) at ity of solution 00:00: bedtime. [place] 00 Apply to [facility] ciclopirox 2019-0 Yes [id number] Apply to [facility] 8 % 3-28 area(s) at ity of solution 00:00: bedtime. [place] 00 Apply to [facility] ciclopirox 2019-0 Yes [id number] Apply to [facility] 8 % 3-28 area(s) at ity of solution 00:00: bedtime. [place] 00 Apply to [facility] ciclopirox 2019-0 Yes [id number] Apply to [facility] 8 % 3-28 area(s) at ity of solution 00:00: bedtime. [place] 00 Apply to [facility] ciclopirox 2019-0 Yes [id number] Apply to [facility] 8 % 3-28 area(s) at ity of solution 00:00: bedtime. [place] 00 Apply to [facility] ciclopirox 2019-0 Yes [id number] Apply to [facility] 8 % 3-28 area(s) at ity of solution 00:00: bedtime. [place] 00 Apply to [facility] ciclopirox 2019-0 Yes [id number] Apply to [facility] 8 % 3-28 area(s) at ity of solution 00:00: bedtime. [place] 00 Apply to [facility] ciclopirox 2019-0 Yes [id number] Apply to [facility] 8 % 3-28 area(s) at ity of solution 00:00: bedtime. [place] 00 Apply to [facility] ciclopirox 2019-0 Yes [id number] Apply to [facility] 8 % 3-28 area(s) at ity of solution 00:00: bedtime. [place] 00 Apply to [facility] ciclopirox 2019-0 Yes [id number] Apply to [facility] 8 % 3-28 area(s) at ity of solution 00:00: bedtime. [place] 00 Apply to [facility] ciclopirox 2019-0 Yes [id number] Apply to [facility] 8 % 3-28 area(s) at ity of solution 00:00: bedtime. [place] 00 Apply to [facility] ciclopirox 2019-0 Yes [id number] Apply to [facility] 8 % 3-28 area(s) at ity of solution 00:00: bedtime. [place] 00 Apply to [facility] ciclopirox 2019-0 Yes [id number] Apply to [facility] 8 % 3-28 area(s) at ity of solution 00:00: bedtime. [place] 00 Apply to [facility] ciclopirox 2019-0 Yes [id number] Apply to [facility] 8 % 3-28 area(s) at ity of solution 00:00: bedtime. [place] 00 Apply to [facility] ciclopirox 2019-0 Yes [id number] Apply to [facility] 8 % 3-28 area(s) at ity of solution 00:00: bedtime. [place] 00 Apply to [facility] ciclopirox 2019-0 Yes [id number] Apply to [facility] 8 % 3-28 area(s) at ity of solution 00:00: bedtime. [place] 00 Apply to [facility] ciclopirox 2019-0 Yes [id number] Apply to [facility] 8 % 3-28 area(s) at ity of solution 00:00: bedtime. [place] 00 Apply to [facility] ciclopirox 2019-0 Yes [id number] Apply to [facility] 8 % 3-28 area(s) at ity of solution 00:00: bedtime. [place] 00 Apply to [facility] ciclopirox 2019-0 Yes [id number] Apply to [facility] 8 % 3-28 area(s) at ity of solution 00:00: bedtime. [place] 00 Apply to [facility] ciclopirox 2019-0 Yes [id number] Apply to [facility] 8 % 3-28 area(s) at ity of solution 00:00: bedtime. [place] 00 Apply to [facility] ciclopirox 2019-0 Yes [id number] Apply to [facility] 8 % 3-28 area(s) at ity of solution 00:00: bedtime. [place] 00 Apply to [facility] ciclopirox 2019-0 Yes [id number] Apply to [facility] 8 % 3-28 area(s) at ity of solution 00:00: bedtime. [place] 00 Apply to [facility] ciclopirox 2019-0 Yes [id number] Apply to [facility] 8 % 3-28 area(s) at ity of solution 00:00: bedtime. [place] 00 Apply to [facility] Branch ciclopirox 2019-0 Yes [id number] Apply to [facility] 8 % 3-28 area(s) at ity of solution 00:00: bedtime. [place] 00 Apply to [facility] Branch ciclopirox 2019-0 Yes [id number] Apply to [facility] 8 % 3-28 area(s) at ity of solution 00:00: bedtime. [place] 00 Apply to [facility] Branch ciclopirox 2019-0 Yes [id number] Apply to [facility] 8 % 3-28 area(s) at ity of solution 00:00: bedtime. [place] 00 Apply to [facility] ciclopirox 2019-0 Yes [id number] Apply to [facility] 8 % 3-28 area(s) at ity of solution 00:00: bedtime. [place] 00 Apply to [facility] ciclopirox 2019-0 Yes [id number] Apply to [facility] 8 % 3-28 area(s) at ity of solution 00:00: bedtime. [place] 00 Apply to [facility] Branch ciclopirox 2019-0 Yes [id number] Apply to [facility] 8 % 3-28 area(s) at ity of solution 00:00: bedtime. [place] 00 Apply to [facility] Branch ciclopirox 2019-0 Yes [id number] Apply to [facility] 8 % 3-28 area(s) at ity of solution 00:00: bedtime. [place] 00 Apply to [facility] Branch ciclopirox 2019-0 Yes [id number] Apply to [facility] 8 % 3-28 area(s) at ity of solution 00:00: bedtime. [place] 00 Apply to [facility] Branch ciclopirox 2019-0 Yes [id number] Apply to [facility] 8 % 3-28 area(s) at ity of solution 00:00: bedtime. [place] 00 Apply to [facility] Branch ciclopirox 2019-0 Yes [id number] Apply to [facility] 8 % 3-28 area(s) at ity of solution 00:00: bedtime. [place] 00 Apply to [facility] ciclopirox 2019-0 Yes [id number] Apply to [facility] 8 % 3-28 area(s) at ity of solution 00:00: bedtime. [place] 00 Apply to [facility] ciclopirox 2019-0 Yes [id number] Apply to [facility] 8 % 3-28 area(s) at ity of solution 00:00: bedtime. [place] 00 Apply to [facility] ciclopirox 2019-0 Yes [id number] Apply to [facility] 8 % 3-28 area(s) at ity of solution 00:00: bedtime. [place] 00 Apply to [facility] Branch ciclopirox 2019-0 Yes [id number] Apply to [facility] 8 % 3-28 area(s) at ity of solution 00:00: bedtime. [place] 00 Apply to [facility] Branch ciclopirox 2019-0 Yes [id number] Apply to [facility] 8 % 3-28 area(s) at ity of solution 00:00: bedtime. [place] 00 Apply to [facility] Branch ciclopirox 2019-0 Yes [id number] Apply to [facility] 8 % 3-28 area(s) at ity of solution 00:00: bedtime. [place] 00 Apply to [facility] Branch ciclopirox 2019-0 Yes [id number] Apply to [facility] 8 % 3-28 area(s) at ity of solution 00:00: bedtime. [place] 00 Apply to [facility] ciclopirox 2019-0 Yes [id number] Apply to [facility] 8 % 3-28 area(s) at ity of solution 00:00: bedtime. [place] 00 Apply to [facility] ciclopirox 2019-0 Yes [id number] Apply to [facility] 8 % 3-28 area(s) at ity of solution 00:00: bedtime. [place] 00 Apply to [facility] ciclopirox 2019-0 Yes [id number] Apply to [facility] 8 % 3-28 area(s) at ity of solution 00:00: bedtime. [place] 00 Apply to [facility] Branch ciclopirox 2019-0 Yes [id number] Apply to [facility] 8 % 3-28 area(s) at ity of solution 00:00: bedtime. [place] 00 Apply to [facility] ciclopirox 2019-0 Yes [id number] Apply to [facility] 8 % 3-28 area(s) at ity of solution 00:00: bedtime. [place] 00 Apply to [facility] Branch ciclopirox 2019-0 Yes [id number] Apply to [facility] 8 % 3-28 area(s) at ity of solution 00:00: bedtime. [place] 00 Apply to [facility] ciclopirox 2019-0 Yes [id number] Apply to [facility] 8 % 3-28 area(s) at ity of solution 00:00: bedtime. [place] 00 Apply to [facility] Branch ciclopirox 2019-0 Yes [id number] Apply to [facility] 8 % 3-28 area(s) at ity of solution 00:00: bedtime. [place] 00 Apply to [facility] ciclopirox 2019-0 Yes [id number] Apply to [facility] 8 % 3-28 area(s) at ity of solution 00:00: bedtime. [place] 00 Apply to [facility] ciclopirox 2019-0 Yes [id number] Apply to [facility] 8 % 3-28 area(s) at ity of solution 00:00: bedtime. [place] 00 Apply to [facility] ciclopirox 2019-0 Yes [id number] Apply to [facility] 8 % 3-28 area(s) at ity of solution 00:00: bedtime. [place] 00 Apply to [facility] ciclopirox 2019-0 Yes [id number] Apply to [facility] 8 % 3-28 area(s) at ity of solution 00:00: bedtime. [place] 00 Apply to [facility] ciclopirox 2019-0 Yes [id number] Apply to [facility] 8 % 3-28 area(s) at ity of solution 00:00: bedtime. [place] 00 Apply to [facility] ciclopirox 2019-0 Yes [id number] Apply to [facility] 8 % 3-28 area(s) at ity of solution 00:00: bedtime. [place] 00 Apply to [facility] ciclopirox 2019-0 Yes [id number] Apply to [facility] 8 % 3-28 area(s) at ity of solution 00:00: bedtime. [place] 00 Apply to [facility] ciclopirox 2019-0 Yes [id number] Apply to [facility] 8 % 3-28 area(s) at ity of solution 00:00: bedtime. [place] 00 Apply to [facility] Branch ciclopirox 2019-0 Yes [id number] Apply to [facility] 8 % 3-28 area(s) at ity of solution 00:00: bedtime. [place] 00 Apply to [facility] ciclopirox 2019-0 Yes [id number] Apply to [facility] 8 % 3-28 area(s) at ity of solution 00:00: bedtime. [place] 00 Apply to [facility] Branch ciclopirox 2019-0 Yes [id number] Apply to [facility] 8 % 3-28 area(s) at ity of solution 00:00: bedtime. [place] 00 Apply to [facility] Branch ciclopirox 2019-0 Yes [id number] Apply to [facility] 8 % 3-28 area(s) at ity of solution 00:00: bedtime. [place] 00 Apply to [facility] Branch ciclopirox 2019-0 Yes [id number] Apply to [facility] 8 % 3-28 area(s) at ity of solution 00:00: bedtime. [place] 00 Apply to [facility] Branch ciclopirox 2019-0 Yes [id number] Apply to [facility] 8 % 3-28 area(s) at ity of solution 00:00: bedtime. [place] 00 Apply to [facility] Branch ciclopirox 2019-0 Yes [id number] Apply to [facility] 8 % 3-28 area(s) at ity of solution 00:00: bedtime. [place] 00 Apply to [facility] Branch ciclopirox 2019-0 Yes [id number] Apply to [facility] 8 % 3-28 area(s) at ity of solution 00:00: bedtime. [place] 00 Apply to [facility]. Branch ciclopirox 2019-0 Yes [id number] Apply to [facility] 8 % 3-28 area(s) at ity of solution 00:00: bedtime. [place] 00 Apply to [facility] Branch ciclopirox 2019-0 Yes [id number] Apply to [facility] 8 % 3-28 area(s) at ity of solution 00:00: bedtime. [place] 00 Apply to [facility]. Branch ciclopirox 2019-0 Yes [id number] Apply to [facility] 8 % 3-28 area(s) at ity of solution 00:00: bedtime. [place] 00 Apply to [facility]. Branch ciclopirox 2019-0 Yes [id number] Apply to [facility] 8 % 3-28 area(s) at ity of solution 00:00: bedtime. [place] 00 Apply to [facility] Branch ciclopirox 2019-0 Yes [id number] Apply to [facility] 8 % 3-28 area(s) at ity of solution 00:00: bedtime. [place] 00 Apply to [facility]. Branch alcaftadine 2018-[address] in U nivers (LASTACAFT) 1- each eye. ity of 0.25 % Drop 20:36: [place] [address] Medical Branch CYCLOSPORIN 2018-[address] in U nivers E (RESTASIS - each eye. ity of OPHTHALMIC) 20:36: [place] [address] Medical Branch ASCORBATE 2018-0 Yes Take by [facility] ers CALCIUM 1-23 mouth. ity of (VITAMIN C 20:36: [place] ORAL) Medical Branch DOCOSAHEXAN Yes Take by [facility] [place] OIC 1-23 mouth. ity of ACID/EPA 20:36: [place] (FISH OIL 33 Medical ORAL) Branch vitamin E Yes 1000U Take 1,000 U nivers 1,000 unit 1-23 Units by ity o f capsule 20:36: mouth [place] 33 daily. Medical Branch Magnesium Yes Take by Univ ers 250 mg Tab 1-23 mouth. ity of 20:36: [address] Branch vitamin B-6 Yes 100mg Take 100 U nivers (VITAMIN 1-23 mg by ity of B-6) 100 mg 20:36: mouth [place] tablet 33 daily. Medical Branch CALCIUM Yes Take by Univer s CARBONATE/V 1-23 mouth. ity of ITAMIN D3 20:36: [place] (VITAMIN 33 Medical D-3 ORAL) [place] alcaftadine Yes Place in U nivers (LASTACAFT) 1-23 each eye. ity of 0.25 % Drop 20:36: [address] Branch CYCLOSPORIN Yes Place in U nivers E (RESTASIS 1-23 each eye. ity of OPHTHALMIC) 20:36: [address] Branch ASCORBATE Yes Take by Univ ers CALCIUM 1-23 mouth. ity of (VITAMIN C 20:36: [place] ORAL) Medical Branch DOCOSAHEXAN Yes Take by [facility] [place] OIC 1-23 mouth. ity of ACID/EPA 20:36: [place] (FISH OIL 33 Medical ORAL) Branch vitamin E Yes 1000U Take 1,000 U nivers 1,000 unit 1-23 Units by ity o f capsule 20:36: mouth [place] 33 daily. Medical Branch Magnesium Yes Take by Univ ers 250 mg Tab 1-23 mouth. ity of 20:36: [address] Branch vitamin B-6 Yes 100mg Take 100 U nivers (VITAMIN 1-23 mg by ity of B-6) 100 mg 20:36: mouth [place] tablet 33 daily. Medical Branch CALCIUM Yes Take by Univer s CARBONATE/V 1-23 mouth. ity of ITAMIN D3 20:36: [place] (VITAMIN 33 Medical D-3 ORAL) [place] alcaftadine Yes Place in U nivers (LASTACAFT) 1-23 each eye. ity of 0.25 % Drop 20:36: [place] [address] Medical Branch CYCLOSPORIN Yes Place in U nivers E (RESTASIS 1-23 each eye. ity of OPHTHALMIC) 20:36: [place] [address] Medical Branch ASCORBATE Yes Take by Univ ers CALCIUM 1-23 mouth. ity of (VITAMIN C 20:36: [place] ORAL) Medical Branch DOCOSAHEXAN Yes Take by [facility] [place] OIC 1- mouth. ity of ACID/EPA 20:36: [place] (FISH OIL 33 Medical ORAL) Branch vitamin E Yes 1000U Take 1,000 U nivers 1,000 unit 1-23 Units by ity o f capsule 20:36: mouth [place] 33 daily. Medical Branch Magnesium Yes Take by Univ ers 250 mg Tab - mouth. ity of 20:36: [address] Branch vitamin B-6 Yes 100mg Take 100 U nivers (VITAMIN 1-23 mg by ity of B-6) 100 mg 20:36: mouth [place] tablet 33 daily. Medical Branch CALCIUM Yes Take by Univer s CARBONATE/V - mouth. ity of ITAMIN D3 20:36: [place] (VITAMIN Medical D-3 ORAL) Branch alcaftadine Yes Place in U nivers (LASTACAFT) 1-23 each eye. ity of 0.25 % Drop 20:36: [place] [address] Medical Branch CYCLOSPORIN Yes Place in U nivers E (RESTASIS 1-23 each eye. ity of OPHTHALMIC) 20:36: [place] [address] Medical Branch ASCORBATE Yes Take by Univ ers CALCIUM 1-23 mouth. ity of (VITAMIN C 20:36: [place] ORAL) Medical Branch DOCOSAHEXAN Yes Take by [facility] [place] OIC 1-23 mouth. ity of ACID/EPA 20:36: [place] (FISH OIL 33 Medical ORAL) Branch vitamin E Yes 1000U Take 1,000 U nivers 1,000 unit 1-23 Units by ity o f capsule 20:36: mouth [place] 33 daily. Medical Branch Magnesium Yes Take by Univ ers 250 mg Tab 1-23 mouth. ity of 20:36: [place] 33 Medical Branch vitamin B-6 Yes 100mg Take 100 U nivers (VITAMIN 1-23 mg by ity of B-6) 100 mg 20:36: mouth [place] tablet 33 daily. Medical Branch CALCIUM Yes Take by Univer s CARBONATE/V 1-23 mouth. ity of ITAMIN D3 20:36: [place] (VITAMIN 33 Medical D-3 ORAL) Branch alcaftadine Yes Place in U nivers (LASTACAFT) 1-23 each eye. ity of 0.25 % Drop 20:36: [address] Branch CYCLOSPORIN Yes Place in U nivers E (RESTASIS 1-23 each eye. ity of OPHTHALMIC) 20:36: [place] [address] Medical Branch ASCORBATE Yes Take by Univ ers CALCIUM - mouth. ity of (VITAMIN C 20:36: [place] ORAL) [address] [place] [address] Branch DOCOSAHEXAN Yes Take by [facility] [place] OIC - mouth. ity of ACID/EPA 20:36: [place] (FISH OIL Medical ORAL) Branch vitamin E Yes 1000U Take 1,000 U nivers 1,000 unit - Units by ity o f capsule 20:36: mouth [place] 33 daily. Medical Branch Magnesium Yes Take by Univ ers 250 mg Tab - mouth. ity of 20:36: [address] vitamin B-6 Yes 100mg Take 100 U nivers (VITAMIN 1-23 mg by ity of B-6) 100 mg 20:36: mouth [place] tablet 33 daily. Medical Branch CALCIUM Yes Take by Univer s CARBONATE/V -23 mouth. ity of ITAMIN D3 20:36: [place] (VITAMIN 33 Medical D-3 ORAL) Branch alcaftadine Yes Place in U nivers (LASTACAFT) 1-23 each eye. ity of 0.25 % Drop 20:36: [address] Branch CYCLOSPORIN Yes Place in U nivers E (RESTASIS 1-23 each eye. ity of OPHTHALMIC) 20:36: [address] Branch ASCORBATE Yes Take by Univ ers CALCIUM 1-23 mouth. ity of (VITAMIN C 20:36: [place] ORAL) [address] [place] [address] Branch DOCOSAHEXAN Yes Take by [facility] [place] OIC 1-23 mouth. ity of ACID/EPA 20:36: [place] (FISH OIL 33 Medical ORAL) Branch vitamin E Yes 1000U Take 1,000 U nivers 1,000 unit 1-23 Units by ity o f capsule 20:36: mouth [place] 33 daily. Medical Branch Magnesium 20190 Yes Take by Univ ers 250 mg Tab 1-23 mouth. ity of 20:36: [address] vitamin B-6 Yes 100mg Take 100 U nivers (VITAMIN 1-23 mg by ity of B-6) 100 mg 20:36: mouth [place] tablet 33 daily. Medical Branch CALCIUM Yes Take by Univer s CARBONATE/V 1-23 mouth. ity of ITAMIN D3 20:36: [place] (VITAMIN 33 Medical D-3 ORAL) Branch alcaftadine Yes Place in U nivers (LASTACAFT) 1-23 each eye. ity of 0.25 % Drop 20:36: [address] Yes Place in U nivers E (RESTASIS 1- each eye. ity of OPHTHALMIC) 20:36: [address] Branch ASCORBATE Yes Take by Univ ers CALCIUM 1-23 mouth. ity of (VITAMIN C 20:36: [place] ORAL) Medical Branch DOCOSAHEXAN Yes Take by [facility] [place] OIC 1- mouth. ity of ACID/EPA 20:36: [place] (FISH OIL 33 Medical ORAL) Branch vitamin E Yes 1000U Take 1,000 U nivers 1,000 unit 1-23 Units by ity o f capsule 20:36: mouth [place] 33 daily. Medical Branch Magnesium Yes Take by Univ ers 250 mg Tab 1-23 mouth. ity of 20:36: [address] vitamin B-6 Yes 100mg Take 100 U nivers (VITAMIN 1-23 mg by ity of B-6) 100 mg 20:36: mouth [place] tablet 33 daily. Medical Branch CALCIUM 0 Yes Take by Univer s CARBONATE/V 1-23 mouth. ity of ITAMIN D3 20:36: [place] (VITAMIN 33 Medical D-3 ORAL) [place] alcaftadine Yes Place in U nivers (LASTACAFT) 1-23 each eye. ity of 0.25 % Drop 20:36: [place] 33 Medical Branch CYCLOSPORIN Yes Place in U nivers E (RESTASIS 1-23 each eye. ity of OPHTHALMIC) 20:36: [place] [address] Medical Branch ASCORBATE 2018-0 Yes Take by Univ ers CALCIUM 1-23 mouth. ity of (VITAMIN C 20:36: [place] ORAL) Medical Branch DOCOSAHEXAN Yes Take by [facility] [place] OIC - mouth. ity of ACID/EPA 20:36: [place] (FISH OIL 33 Medical ORAL) Branch vitamin E Yes 1000U Take 1,000 U nivers 1,000 unit 1-23 Units by ity o f capsule 20:36: mouth [place] 33 daily. Medical Branch Magnesium Yes Take by Univ ers 250 mg Tab - mouth. ity of 20:36: [place] [address] Medical Branch vitamin B-6 Yes 100mg Take 100 U nivers (VITAMIN 1-23 mg by ity of B-6) 100 mg 20:36: mouth [place] tablet 33 daily. Medical Branch CALCIUM Yes Take by Univer s CARBONATE/V 10-09 mouth. ity of ITAMIN D3 20:36: [place] ([place] [address] Medical D-3 ORAL) Branch alcaftadine Yes Place in U nivers (LASTACAFT) 1-23 each eye. ity of 0.25 % Drop 20:36: [place] [address] Medical Branch CYCLOSPORIN Yes Place in U nivers E (RESTASIS 1-23 each eye. ity of OPHTHALMIC) 20:36: [address] Branch ASCORBATE Yes Take by Univ ers CALCIUM 1-23 mouth. ity of (VITAMIN C 20:36: [place] ORAL) Medical Branch DOCOSAHEXAN Yes Take by Un [facility] OIC 1-23 mouth. ity of ACID/EPA 20:36: [place] (FISH OIL 33 Medical ORAL) Branch vitamin E Yes 1000U Take 1,000 U nivers 1,000 unit 1-23 Units by ity o f capsule 20:36: mouth [place] 33 daily. Medical Branch Magnesium 2018-0 Yes Take by Univ ers 250 mg Tab - mouth. ity of 20:36: [place] [address] Medical Branch vitamin B-6 Yes 100mg Take 100 U nivers (VITAMIN 1-23 mg by ity of B-6) 100 mg 20:36: mouth [place] tablet 33 daily. Medical Branch CALCIUM Yes Take by Univer s CARBONATE/V 1-23 mouth. ity of ITAMIN D3 20:36: [place] (VITAMIN 33 Medical D-3 ORAL) Branch alcaftadine Yes Place in U nivers (LASTACAFT) 1-23 each eye. ity of 0.25 % Drop 20:36: [place] [address] Medical Branch CYCLOSPORIN Yes Place in U nivers E (RESTASIS - each eye. ity of OPHTHALMIC) 20:36: [place] [address] Medical Branch ASCORBATE Yes Take by Univ ers CALCIUM - mouth. ity of (VITAMIN C 20:36: [place] ORAL) Medical Branch DOCOSAHEXAN Yes Take by Un [place] OIC 10-09 mouth. ity of ACID/EPA 20:36: [place] (FISH OIL 33 Medical ORAL) Branch vitamin E Yes 1000U Take 1,000 U nivers 1,000 unit -23 Units by ity o f capsule 20:36: mouth [place] 33 daily. Medical Branch Magnesium Yes Take by Univ ers 250 mg Tab - mouth. ity of 20:36: [address] Branch vitamin B-6 Yes 100mg Take 100 U nivers (VITAMIN 1-23 mg by ity of B-6) 100 mg 20:36: mouth [place] tablet 33 daily. Medical Branch CALCIUM Yes Take by Univer s CARBONATE/V - mouth. ity of ITAMIN D3 20:36: [place] (VITAMIN 33 Medical D-3 ORAL) Branch alcaftadine Yes Place in U nivers (LASTACAFT) 1- each eye. ity of 0.25 % Drop 20:36: [place] [address] Medical Branch CYCLOSPORIN Yes Place in U nivers E (RESTASIS 1- each eye. ity of OPHTHALMIC) 20:36: [place] [address] Medical Branch ASCORBATE Yes Take by Univ ers CALCIUM 1- mouth. ity of (VITAMIN C 20:36: [place] ORAL) Medical Branch DOCOSAHEXAN Yes Take by Un [place] OIC - mouth. ity of ACID/EPA 20:36: [place] (FISH OIL 33 Medical ORAL) Branch vitamin E Yes 1000U Take 1,000 U nivers 1,000 unit 1-23 Units by ity o f capsule 20:36: mouth [place] 33 daily. Medical Branch Magnesium Yes Take by Univ ers 250 mg Tab 1-23 mouth. ity of 20:36: [place] [address] Medical Branch vitamin B-6 Yes 100mg Take 100 U nivers (VITAMIN 1-23 mg by ity of B-6) 100 mg 20:36: mouth [place] tablet 33 daily. Medical Branch CALCIUM Yes Take by Univer s CARBONATE/V 1-23 mouth. ity of ITAMIN D3 20:36: [place] (VITAMIN 33 Medical D-3 ORAL) Branch alcaftadine Yes Place in U nivers (LASTACAFT) 1-23 each eye. ity of 0.25 % Drop 20:36: [address] Branch CYCLOSPORIN Yes Place in U nivers E (RESTASIS 1-23 each eye. ity of OPHTHALMIC) 20:36: [address] Branch ASCORBATE Yes Take by Univ ers CALCIUM 1-23 mouth. ity of (VITAMIN C 20:36: [place] ORAL) Medical Branch DOCOSAHEXAN Yes Take by Un [place] OIC 1-23 mouth. ity of ACID/EPA 20:36: [place] (FISH OIL Medical ORAL) Branch vitamin E Yes 1000U Take 1,000 U nivers 1,000 unit 1-23 Units by ity o f capsule 20:36: mouth [place] 33 daily. Medical Branch Magnesium Yes Take by Univ ers 250 mg Tab 1-23 mouth. ity of 20:36: [address] Branch vitamin B-6 Yes 100mg Take 100 U nivers (VITAMIN 1-23 mg by ity of B-6) 100 mg 20:36: mouth [place] tablet 33 daily. Medical Branch CALCIUM Yes Take by Univer s CARBONATE/V 1-23 mouth. ity of ITAMIN D3 20:36: [place] (VITAMIN 33 Medical D-3 ORAL) Branch alcaftadine Yes Place in U nivers (LASTACAFT) 1-23 each eye. ity of 0.25 % Drop 20:36: [address] Branch CYCLOSPORIN Yes Place in U nivers E (RESTASIS 1-23 each eye. ity of OPHTHALMIC) 20:36: [place] 33 Medical Branch ASCORBATE Yes Take by [facility] ers CALCIUM 10-09 mouth. ity of (VITAMIN C 20:36: [place] ORAL) 33 Medical Branch DOCOSAHEXAN Yes Take by Un [place] OIC 10-09 mouth. ity of ACID/EPA 20:36: [place] (FISH OIL 33 Medical ORAL) Branch vitamin E Yes 1000U Take 1,000 U nivers 1,000 unit 10-09 Units by ity o f capsule 20:36: mouth [place] 33 daily. Medical Branch Magnesium Yes Take by [facility] ers 250 mg Tab 10-09 mouth. ity of 20:36: [place] [address] Medical Branch vitamin B-6 Yes 100mg Take 100 U nivers (VITAMIN 1-23 mg by ity of B-6) 100 mg 20:36: mouth [place] tablet 33 daily. Medical Branch CALCIUM Yes Take by [facility] [place] s CARBONATE/V 10-09 mouth. ity of ITAMIN D3 20:36: [place] (VITAMIN Medical D-3 ORAL) [place] Immunizations Ordered Filled Immunization Date Status Comments [facility] Immunization Name Name Pneumococcal 2019-04-25 Completed University [...] Completed Universit y of Conjugate, PCV13 00:00:00 [facility] dical (Prevnar 13) Branch Pneumococcal 13 2017-08-27 [...] Completed Universit y of Conjugate, PCV13 00:00:00 [place] [facility] dical (Prevnar 13) Branch Vital Signs Vital Name Observation Time Observation Value Comments Source Systolic blood 2021-03-08 145 mm[Hg] [facility] pressure 20:03:[address] [facility] Diastolic blood 2021-03-08 82 mm[Hg] [place] o f pressure 20:03:[address] [facility] Heart rate 2021-03-08 83 /min [facility] 20:03:[address] [facility] Body temperature 2021-03-08 36.06 [place] [facility] 20:03:[address] [facility] Body height 2021-03-08 149.9 cm University of 20:03:[address] [facility] Body weight 2021-03-08 73.301 kg University of 20:03:[address] [facility] BMI 2021-03-08 32.64 kg/m2 University of 20:03:[address] [facility] Oxygen saturation 2021-03-08 96 /min University of in Arterial blood 20:03:00 [place] Medi kacey by Pulse oximetry Branch Systolic blood 2021-02-07 131 mm[Hg] University of pressure 20:47:[address] [facility] Diastolic blood 2021-02-07 61 mm[Hg] University o f pressure 20:47:[address] [facility] Heart rate 2021-02-07 86 /min University of 20:47:[address] [facility] Body temperature 2021-02-07 36.61 [place] University of 20:47:[address] [facility] Body height 2021-02-07 149.9 cm University of 20:47:[address] [facility] Body weight 2021-02-07 77.111 kg University of 20:47:[address] [facility] BMI 2021-02-07 34.34 kg/m2 University of 20:47:[address] [facility] Systolic blood 2021-02-04 157 mm[Hg] University of pressure 22:01:[address] [facility] Diastolic blood 2021-02-04 78 mm[Hg] University o f pressure 22:01:[address] [facility] Heart rate 2021-02-04 66 /min University of 21:58:[address] [facility] Body temperature 2021-02-04 35.67 [place] University of 21:58:[address] [facility] Respiratory rate 2021-02-04 17 /min University of 21:58:[address] [facility] Body height 2021-02-04 149.9 cm University of 21:58:[address] [facility] Body weight 2021-02-04 75.751 kg University of 21:58:[address] [facility] BMI 2021-02-04 33.73 kg/m2 University of 21:58:[address] [facility] Oxygen saturation 2021-02-04 98 /min University of in Arterial blood 21:58:00 [place] Medi kacey by Pulse oximetry Branch Systolic blood 2021-01-25 162 mm[Hg] University of pressure 20:01:00 [facility] Branch Diastolic blood 2021-01-25 54 mm[Hg] University o f pressure 20:01:00 [facility] Branch Heart rate 2021-01-25 60 /min University of 19:53:00 [facility] Branch Respiratory rate 2021-01-25 16 /min University of 19:53:[address] [facility] Body weight 2021-01-25 76.658 kg University of 19:53:[address] [facility] BMI 2021-01-25 34.13 kg/m2 University of 19:53:[address] [facility] Oxygen saturation 2021-01-25 96 /min [place] of in Arterial blood 19:53:00 [facility] by Pulse oximetry Branch Systolic blood 2020-11-14 139 mm[Hg] University of pressure 21:00:00 [facility] Branch Diastolic blood 2020-11-14 55 mm[Hg] University o f pressure 21:00:[address] [facility] Heart rate 2020-11-14 61 /min University of 21:00:[address] [facility] Respiratory rate 2020-11-14 16 /min University of 21:00:[address] [facility] Oxygen saturation 2020-11-14 95 /min [facility] in Arterial blood 21:00:00 [facility] by Pulse oximetry Branch Body temperature 2020-11-14 36.72 [place] University of 18:42:[address] [facility] Body weight 2020-11-14 75.751 kg University of 18:42:[address] [facility] BMI 2020-11-14 33.73 kg/m2 University of 18:42:[address] [facility] Systolic blood 2020-11-09 152 mm[Hg] University of pressure 16:31:00 [facility] Branch Diastolic blood 2020-11-09 79 mm[Hg] University o f pressure 16:31:[address] [facility] Heart rate 2020-11-09 65 /min University of 16:31:00 [facility] Branch Body temperature 2020-11-09 36.06 [place] University of 16:31:00 [facility] Branch Respiratory rate 2020-11-09 18 /min University of 16:31:[address] [facility] Body height 2020-11-09 149.9 cm University of 16:31:[address] [facility] Body weight 2020-11-09 76.204 kg University of 16:31:[address] [facility] BMI 2020-11-09 33.93 kg/m2 University of 16:31:[address] [facility] Oxygen saturation 2020-11-09 99 /min University of in Arterial blood 16:31:00 [facility] [place] [facility] kacey by Pulse oximetry Branch Systolic blood 2020-09-28 131 mm[Hg] University of pressure 15:39:[address] [facility] Diastolic blood 2020-09-28 67 mm[Hg] University o f pressure 15:39:[address] [facility] Heart rate 2020-09-28 62 /min University of 15:39:[address] [facility] Body temperature 2020-09-28 36.22 [place] University of 15:39:[address] [facility] Respiratory rate 2020-09-28 18 /min University of 15:39:[address] [facility] Body height 2020-09-28 149.9 cm University of 15:39:[address] [facility] Body weight 2020-09-28 74.254 kg University of 15:39:[address] [facility] BMI 2020-09-28 33.06 kg/m2 University of 15:39:[address] [facility] Oxygen saturation 2020-09-28 99 /min University of in Arterial blood 15:39:00 [facility] [place] [facility] kacey by Pulse oximetry Branch Systolic blood 2020-09-21 136 mm[Hg] University of pressure 19:16:[address] [facility] Diastolic blood 2020-09-21 63 mm[Hg] University o f pressure 19:16:[address] [facility] Heart rate 2020-09-21 62 /min University of 19:16:[address] [facility] Body temperature 2020-09-21 36.67 [place] University of 19:11:[address] [facility] Body height 2020-09-21 149.9 cm University of 19:11:[address] [facility] Body weight 2020-09-21 74.844 kg University of 19:11:[address] [facility] BMI 2020-09-21 33.33 kg/m2 University of 19:11:[address] [facility] Systolic blood 2020-08-31 142 mm[Hg] University of pressure 04:35:10 [facility] Branch Diastolic blood 2020-08-31 55 mm[Hg] University o f pressure 04:35:[address] [facility] Heart rate 2020-08-31 67 /min University of 04:35:[address] [facility] Body temperature 2020-08-31 37.11 [place] University of 04:35:[address] [facility] Respiratory rate 2020-08-31 16 /min University of 04:35:10 [facility] Branch Oxygen saturation 2020-08-31 96 /min University of in Arterial blood 04:35:10 [facility] [place] [facility] kacey by Pulse oximetry Branch Body height 2020-08-31 149.9 cm University of 00:44:00 [facility] Branch Body weight 2020-08-31 76.658 kg University of 00:44:[address] [facility] BMI 2020-08-31 34.13 kg/m2 University of 00:44:00 [facility] Branch Systolic blood 2020-08-23 120 mm[Hg] University of pressure 22:47:00 [facility] Branch Diastolic blood 2020-08-23 63 mm[Hg] University o f pressure 22:47:00 [facility] Branch Heart rate 2020-08-23 62 /min University of 22:47:00 [facility] Branch Body temperature 2020-08-23 36.72 [place] University of 22:47:[address] [facility] Body height 2020-08-23 149.9 cm University of 22:47:[address] [facility] Body weight 2020-08-23 76.658 kg University of 22:47:[address] [facility] BMI 2020-08-23 34.13 kg/m2 University of 22:47:[address] [facility] Systolic blood 2020-08-11 114 mm[Hg] University of pressure 21:20:00 [facility] Branch Diastolic blood 2020-08-11 58 mm[Hg] University o f pressure 21:20:00 [facility] Branch Heart rate 2020-08-11 64 /min University of 21:20:00 [facility] Branch Respiratory rate 2020-08-11 19 /min University of 21:20:[address] [facility] Body height 2020-08-11 149.9 cm University of 21:20:00 [facility] Branch Body weight 2020-08-11 76.204 kg University of 21:20:[address] [facility] BMI 2020-08-11 33.93 kg/m2 University of 21:20:[address] [facility] Oxygen saturation 2020-08-11 95 /min University of in Arterial blood 21:20:00 [place] [facility] kacey by Pulse oximetry Branch Systolic blood 2020-08-09 124 mm[Hg] University of pressure 20:49:00 [facility] Branch Diastolic blood 2020-08-09 60 mm[Hg] University o f pressure 20:49:[address] [facility] Heart rate 2020-08-09 64 /min University of 20:49:00 [facility] Branch Respiratory rate 2020-08-09 19 /min University of 20:49:00 [facility] Branch Body height 2020-08-09 149.9 cm University of 20:49:00 [facility] Branch Body weight 2020-08-09 76.204 kg University of 20:49:[address] [facility] BMI 2020-08-09 33.93 kg/m2 University of 20:49:[address] [facility] Oxygen saturation 2020-08-09 96 /min University of in Arterial blood 20:49:00 [place] [facility] kacey by Pulse oximetry Branch Systolic blood 2020-07-09 129 mm[Hg] University of pressure 17:01:00 [facility] Branch Diastolic blood 2020-07-09 66 mm[Hg] University o f pressure 17:01:[address] [facility] Heart rate 2020-07-09 61 /min University of 17:01:[address] [facility] Respiratory rate 2020-07-09 18 /min University of 17:01:[address] [facility] Body height 2020-07-09 149.9 cm University of 17:01:[address] [facility] Body weight 2020-07-09 76.204 kg University of 17:01:[address] [facility] BMI 2020-07-09 33.93 kg/m2 University of 17:01:[address] [facility] Systolic blood 2020-07-07 132 mm[Hg] University of pressure 19:25:00 [facility] Branch Diastolic blood 2020-07-07 73 mm[Hg] University o f pressure 19:25:[address] [facility] Heart rate 2020-07-07 68 /min University of 19:25:[address] [facility] Respiratory rate 2020-07-07 19 /min University of 19:25:[address] [facility] Body height 2020-07-07 149.9 cm University of 19:25:00 [facility] Branch Body weight 2020-07-07 74.844 kg University of 19:25:[address] [facility] BMI 2020-07-07 33.33 kg/m2 University of 19:25:[address] [facility] Oxygen saturation 2020-07-07 97 /min University of in Arterial blood 19:25:00 [place] Medi kacey by Pulse oximetry Branch Body height 2020-06-21 149.9 cm University of 20:25:[address] [facility] Body weight 2020-06-21 77.111 kg University of 20:25:00 [facility] Branch BMI 2020-06-21 34.34 kg/m2 University of 20:25:[address] [facility] Systolic blood 2020-06-09 115 mm[Hg] University of pressure 19:34:[address] [facility] Diastolic blood 2020-06-09 60 mm[Hg] University o f pressure 19:34:[address] [facility] Heart rate 2020-06-09 76 /min University of 19:34:[address] [facility] Respiratory rate 2020-06-09 19 /min University of 19:34:[address] [facility] Body height 2020-06-09 149.9 cm University of 19:34:[address] [facility] Body weight 2020-06-09 75.978 kg University of 19:34:[address] [facility] BMI 2020-06-09 33.83 kg/m2 University of 19:34:[address] [facility] Oxygen saturation 2020-06-09 95 /min University of in Arterial blood 19:34:00 [place] [facility] kacey by Pulse oximetry Branch Systolic blood 2020-06-07 144 mm[Hg] patient has not University of pressure 15:24:00 taken bp [place] [facility] medication today Branch Diastolic blood 2020-06-07 79 mm[Hg] patient has not Universit y of pressure 15:24:00 taken bp [place] [facility] medication today Branch Heart rate 2020-06-07 93 /min University of 15:24:[address] [facility] Body temperature 2020-06-07 36.67 [place] University of 15:24:[address] [facility] Body height 2020-06-07 149.9 cm University of 15:24:[address] [facility] Body weight 2020-06-07 76.114 kg University of 15:24:[address] [facility] BMI 2020-06-07 33.89 kg/m2 University of 15:24:[address] [facility] Systolic blood 2020-06-03 142 mm[Hg] University of pressure 22:00:[address] [facility] Diastolic blood 2020-06-03 64 mm[Hg] University o f pressure 22:00:[address] [facility] Heart rate 2020-06-03 80 /min University of 22:00:[address] [facility] Body temperature 2020-06-03 37.22 [place] University of 22:00:[address] [facility] Respiratory rate 2020-06-03 15 /min University of 22:00:[address] [facility] Oxygen saturation 2020-06-03 98 /min University of in Arterial blood 22:00:00 [place] [facility] kacey by Pulse oximetry Branch Body weight 2020-06-03 68.04 kg University of 20:19:[address] [facility] BMI 2020-06-03 30.30 kg/m2 University of 20:19:00 [facility] Branch Systolic blood 2020-05-10 129 mm[Hg] University of pressure 19:25:00 [facility] Branch Diastolic blood 2020-05-10 79 mm[Hg] University o f pressure 19:25:00 [facility] Branch Heart rate 2020-05-10 85 /min University of 19:25:00 [facility] Branch Body temperature 2020-05-10 36.33 [place] University of 19:25:00 [facility] Branch Body height 2020-05-10 149.9 cm University of 19:25:00 [facility] Branch Body weight 2020-05-10 75.116 kg University of 19:25:[address] [facility] BMI 2020-05-10 33.45 kg/m2 University of 19:25:00 [facility] Branch Oxygen saturation 2020-05-10 97 /min University of in Arterial blood 19:25:00 [place] Medi kacey by Pulse oximetry Branch Systolic blood 2020-02-26 134 mm[Hg] University of pressure 19:37:00 [facility] Branch Diastolic blood 2020-02-26 72 mm[Hg] University o f pressure 19:37:00 [facility] Branch Heart rate 2020-02-26 71 /min University of 19:37:00 [facility] Branch Respiratory rate 2020-02-26 19 /min University of 19:37:[address] [facility] Body height 2020-02-26 149.9 cm University of 19:37:[address] [facility] Body weight 2020-02-26 75.751 kg University of 19:37:[address] [facility] BMI 2020-02-26 33.73 kg/m2 University of 19:37:00 [facility] Branch Oxygen saturation 2020-02-26 99 /min University of in Arterial blood 19:37:00 [place] [facility] kacey by Pulse oximetry Branch Heart rate 2019-12-09 90 /min University of 21:40:[address] [facility] Body temperature 2019-12-09 36.56 [place] University of 21:40:00 [facility] Branch Respiratory rate 2019-12-09 18 /min University of 21:40:00 [facility] Branch Oxygen saturation 2019-12-09 95 /min University of in Arterial blood 21:40:00 [place] Medi kacey by Pulse oximetry Branch Systolic blood 2019-12-09 122 mm[Hg] University of pressure 17:00:[address] [facility] Diastolic blood 2019-12-09 65 mm[Hg] University o f pressure 17:00:[address] [facility] Body weight 2019-12-09 74.707 kg University of 05:30:[address] [facility] BMI 2019-12-09 33.27 kg/m2 University of 05:30:[address] [facility] Body height 2019-12-07 149.9 cm University of 05:30:[address] [facility] Respiratory rate 2019-11-15 16 /min University of 02:46:[address] [facility] Oxygen saturation 2019-11-15 97 /min University of in Arterial blood 02:46:00 [place] [facility] kacey by Pulse oximetry Branch Systolic blood 2019-11-15 159 mm[Hg] University of pressure 02:24:[address] [facility] Diastolic blood 2019-11-15 72 mm[Hg] University o f pressure 02:24:[address] [facility] Heart rate 2019-11-15 75 /min University of 02:24:[address] [facility] Body temperature 2019-11-14 37 [place] University of :50:[address] [facility] Body height 2019-11-14 149.9 cm University of :50:[address] [facility] Body weight 2019-11-14 74.844 kg University of 23:50:[address] [facility] BMI 2019-11-14 33.33 kg/m2 University of 23:50:[address] [facility] Systolic blood 2019-11-09 136 mm[Hg] University of pressure 01:04:[address] [facility] Diastolic blood 2019-11-09 61 mm[Hg] University o f pressure 01:04:[address] [facility] Heart rate 2019-11-09 80 /min University of :03:[address] [facility] Body temperature 2019-11-09 36.67 [place] University of 01:03:[address] [facility] Respiratory rate 2019-11-09 20 /min University of :03:[address] [facility] Body height 2019-11-09 149.9 cm University of 01:03:[address] [facility] Body weight 2019-11-09 76.658 kg University of 01:03:[address] [facility] BMI 2019-11-09 34.13 kg/m2 University of 01:03:[address] [facility] Oxygen saturation 2019-11-09 95 /min University of in Arterial blood 01:03:00 [place] [facility] kacey by Pulse oximetry Branch Systolic blood 2019-10-30 156 mm[Hg] University of pressure 16:21:00 [facility] Branch Diastolic blood 2019-10-30 80 mm[Hg] University o f pressure 16:21:00 [place] [facility] Heart rate 2019-10-30 77 /min University of 15:40:00 [place] [facility] Body temperature 2019-10-30 36.61 [place] University of 15:40:00 [place] [facility] Body height 2019-10-30 149.9 cm University of 15:40:00 [place] [facility] Body weight 2019-10-30 76.204 kg University of 15:40:00 [place] [facility] BMI 2019-10-30 33.93 kg/m2 University of 15:40:00 [facility] Branch Systolic blood 2019-06-05 125 mm[Hg] University of pressure 18:17:00 [facility] Branch Diastolic blood 2019-06-05 75 mm[Hg] University o f pressure 18:17:00 [facility] Branch Heart rate 2019-06-05 80 /min University of 18:17:00 [facility] Branch Body temperature 2019-06-05 36.67 [place] University of 18:17:00 [facility] Branch Respiratory rate 2019-06-05 18 /min University of 18:17:00 [facility] Body height 2019-06-05 149.9 cm University of 18:17:[address] [facility] Body weight 2019-06-05 74.844 kg University of 18:17:00 [facility] [facility] BMI 2019-06-05 33.33 kg/m2 University of 18:17:00 [facility] Systolic blood 2019-06-02 117 mm[Hg] University of pressure 23:21:00 [facility] Diastolic blood 2019-06-02 68 mm[Hg] University o f pressure 23:21:00 [facility] Heart rate 2019-06-02 64 /min University of 23:21:00 [facility] Body temperature 2019-06-02 36.61 [place] University of 23:21:00 [facility] Respiratory rate 2019-06-02 18 /min University of 23:21:00 [facility] Body height 2019-06-02 149.9 cm University of 23:21:00 [facility] Body weight 2019-06-02 74.571 kg University of 23:21:00 [facility] BMI 2019-06-02 33.20 kg/m2 University of 23:21:00 [facility] Oxygen saturation 2019-06-02 98 /min University of in Arterial blood 23:21:00 [facility] by Pulse oximetry Branch Systolic blood 2019-04-25 125 mm[Hg] [place] of pressure 18:26:[address] [facility] Diastolic blood 2019-04-25 68 mm[Hg] [place] o f pressure 18:26:[address] [facility] Heart rate 2019-04-25 71 /min [facility] 18:26:[address] [facility] Body temperature 2019-04-25 36.94 [place] [facility] 18:26:[address] [facility] Body height 2019-04-25 149.9 cm [facility] 18:26:[address] [facility] Body weight 2019-04-25 75.297 kg [facility] 18:26:[address] [facility] BMI 2019-04-25 33.53 kg/m2 [facility] 18:26:[address] [facility] Procedures Procedure Date / Time Performing Clinician Source Performed MEDICATION CORRESPONDENCE 2021-04-27 05:01:00 Doctor Unassigned, [facility] Name [facility] REFERRAL- REQUEST/RESPONSE 2021-03-07 05:01:00 Doctor Unassigned , [facility] [place] [facility] MEDICATION CORRESPONDENCE 2021-02-09 05:01:00 Doctor Unassigned, [facility] [place] [facility] FERRITIN SERUM 2021-01-26 14:05:00 Kiana Fraser [facility] THYROID STIMULATING 2021-01-26 14:05:00 Kiana Fraser [facility] HORMONE [facility] COMP. METABOLIC PANEL 2021-01-26 14:05:00 [id number] [place] LIPID PANEL ([id number])(TOTAL 2021-01-26 14:05:00 Kiana Fraser [facility] CHOLESTEROL, [facility] TRIGLYCERIDES, HDL) IRON PANEL 2021-01-26 14:05:00 Kiana Fraser [facility] CBC WITHOUT DIFF 2021-01-26 14:05:00 Kiana Fraser [facility] GLYCOSYLATED HEMOGLOBIN 2021-01-26 14:05:00 Kiana Fraser [facility] (A1C) [facility] CT ABDOMEN PELVIS W 2020-11-14 19:55:51 Patricia Shi [facility] CONTRAST [facility] URINALYSIS 2020-11-14 19:30:00 Patricia Shi [facility] COVID-19 (ID NOW RAPID 2020-11-14 19:06:00 Patricia Shi [facility] TESTING) Medical Branch LIPASE 2020-11-14 19:05:00 Patricia Shi [facility] TROPONIN I 2020-11-14 19:05:00 Patricia Shi [facility] HEPATIC FUNCTION PANEL 2020-11-14 19:05:00 Patricia Shi [facility] ([id number]) (ALB,T.PRO,BILI Medical Branch T,BU/BC,ALT,AST,ALK PHOS) BASIC METABOLIC PANEL (NA, 2020-11-14 19:05:00 Patricia Shi [facility] K, CL, CO2, GLUCOSE, BUN, Medica l Branch CREATININE, CA) CBC WITH DIFF 2020-11-14 19:05:00 Patricia Shi [facility] PROTHROMBIN TIME / INR 2020-11-14 19:05:00 Patricia [facility] ACTIVATED PARTIAL THRMPLAS 2020-11-14 19:05:00 Patricia Shi [facility] NOTICE OF PRIVACY 2020-11-14 18:26:59 Doctor Ger, [facility] PRACTICES [place] [facility] CONSENT/REFUSAL FOR 2020-11-14 18:26:36 Doctor Ger [facility] DI[facility]NOSIS [facility] EXTERNAL PROVIDER RECORDS 2020-10-08 06:01:00 Doctor Cyr [facility] Name [facility] [place] HOME HEALTH - OTHER 2020-10-06 06:01:00 Doctor Ger [facility] Name [facility] [place] ASSIGNMENT OF BENEFITS 2020-10-05 19:31:32 Doctor Ger [facility] Name Medical Branch CONSENT/REFUSAL FOR 2020-08-31 00:30:55 Doctor Ger [facility] DIAGNOSIS AND TREATMENT [place] [facility] [place] DEXA AXIAL (HIP AND SPINE) 2020-08-25 20:11:[address] [facility] XR HIPS 2 VW BILATERAL 2020-08-25 19:16:37 Kiana Fraser [facility] DME/SUPPLY JUSTIFICATION 2020-08-11 06:01:00 Doctor Ger, [facility] Name [facility] SLEEP STUDY DATA REPORT 2020-07-17 05:01:00 Doctor Ger [facility] COVID-19 (ID NOW RAPID 2020-06-11 19:31:00 Kiana Fraser [facility] TESTING) Medical Branch ASSIGNMENT OF BENEFITS 2020-06-11 19:08:54 Doctor Ger, [facility] XR CHEST 1 VW COVID 2020-06-03 21:07:32 Ko Breen [facility] COVID-19 (ID NOW RAPID 2020-06-03 20:56:00 Ko Breen [facility] TESTING) Medical Branch TROPONIN I 2020-06-03 20:47:[address] [facility] COMP. METABOLIC PANEL 2020-06-03 20:47:00 Ko Breen [facility] ([id number]) Medical Branch CBC WITH DIFF 2020-06-03 20:47:[address] [facility] PROTHROMBIN TIME / INR 2020-06-03 20:47:00 Ko Breen [facility] N-TERMINAL PRO-BNP 2020-06-03 20:47:00 Ko Breen [facility] EKG-12 LEAD 2020-06-03 20:26:00 Avani Anderson [facility] CONSENT/REFUSAL FOR 2020-06-03 20:08:11 Doctor Ger [facility] DIAGNOSIS AND TREATMENT [facility] INSURANCE CORRESPONDENCE 2020-04-12 05:01:00 Doctor Ger [facility] Name [facility] REFERRAL- REQUEST/RESPONSE 2020-02-16 05:01:00 Doctor Ger [facility] REFERRAL- REQUEST/RESPONSE 2020-01-12 05:01:00 Doctor Ger [facility] Name [facility] POCT GLUCOSE (AUTOMATED) 2019-12-09 21:00:00 Kelly [facility] POCT GLUCOSE (AUTOMATED) 2019-12-09 16:34:00 Edlupe Kelly Uni versity of [facility] POCT GLUCOSE (AUTOMATED) 2019-12-09 12:27:00 Kelly Mittal [facility]RO[facility] STIMUL[facility] 2019-12-09 10:55:00 [facility] BASIC METABOLIC PANEL (NA, 2019-12-09 10:55:00 Kelly Mittal [facility] K, CL, CO2, GLUCOSE, BUN, Medica l Branch CREATININE, CA) CBC WITH DIFFERENTIAL 2019-12-09 10:55:00 Edlupe Kelly [facility] ACTIVATED PARTIAL THRMPLAS 2019-12-09 10:55:00 Edlupe Re[facility]iewelina [facility] POCT GLUCOSE (AUTOMATED) 2019-12-09 00:20:00 Edlupe Kelly Duran [facility] POCT GLUCOSE (AUTOMATED) 2019-12-08 20:54:00 Edionchuy Kelly Rhomania [facility] ACTIVATED PARTIAL THRMPLAS 2019-12-08 18:56:00 Migel Vick [facility] POCT GLUCOSE (AUTOMATED) 2019-12-08 16:42:00 Edionchuy Kelly Duran [facility] POCT GLUCOSE (AUTOMATED) 2019-12-08 12:16:00 Edlupe Kelly Rhomania [facility] CBC WITH DIFFERENTIAL 2019-12-08 06:36:00 Edionchuy Kelly [facility] ACTIVATED PARTIAL THRMPLAS 2019-12-08 06:36:00 Edionchuy Rejiewelina U niversity [facility] POCT GLUCOSE (AUTOMATED) 2019-12-08 00:53:00 Edionwe Kelly [facility] ACTIVATED PARTIAL THRMPLAS 2019-12-07 21:53:00 Edionchuy Kelly U niversity [facility] POCT GLUCOSE (AUTOMATED) 2019-12-07 21:43:00 Edlupe Kelly Rhomania versity [facility] URINE CULTURE 2019-12-07 18:37:00 Migel Vick [facility] POCT GLUCOSE (AUTOMATED) 2019-12-07 16:[facility] (AUTOMATED) 2019-12-07 13:15:00 Kyrie [facility] GLYCOSYLATED HEMOGLOBIN 2019-12-07 10:56[facility] ACTIVATED PARTIAL THRMPLAS 2019-12-07 10:56:00 Kyrie Rejiewelina [facility] PROTHROMBIN TIME / INR 2019-12-07 03:44:00 Jesse Gee [facility] ACTIVATED PARTIAL THRMPLAS 2019-12-07 03:44:00 Jesse Gee [facility] LAB ONLY CORONAVIRUS 2019-12-07 03:08:00 Everton Scott [facility] COVID-19 PCR GNL [facility] CT CHEST PULMONARY 2019-12-07 03:03:46 Everton Scott [facility] ANGIOGRAM Medical Branch URINALYSIS 2019-12-07 02:34:00 Everton Scott [facility] XR CHEST 2 VW 2019-12-07 02:05:16 Everton Scott [facility] EKG-12 LEAD 2019-12-07 01:50:52 Jesse Gee [facility] LIPASE 2019-12-07 01:49:00 Everton Scott [facility] TROPONIN I 2019-12-07 01:49:00 Everton Scott [facility] HEPATIC FUNCTION PANEL 2019-12-07 01:49:00 Everton Scott [facility] ([id number]) (ALB,T.PRO,BILI Medical Branch T,BU/BC,ALT,AST,ALK PHOS) BASIC METABOLIC PANEL (NA, 2019-12-07 01:49:00 Everton Scott [facility] K, CL, CO2, GLUCOSE, BUN, Medica l Branch CREATININE, CA) CBC WITH DIFFERENTIAL 2019-12-07 01:49:00 Everton Scott [facility] ADC,CLC OR LCC ONLY - 2019-12-07 01:49:00 Everton Scott [facility] INFLUENZA A & B DIRECT Medical B ranch ANTIGEN EKG-12 LEAD 2019-12-07 01:43:35 Everton Scott [place] [facility] HOSPITAL ADMISSION MISC - 2019-12-06 05:01:00 Doctor Unajonatan, [facility] MEDICARE PATIENTS RIGHTS [place] [facility] IMPORTANT MESSAGE XR CHEST 2 VW 2019-11-15 00:28:[address] [facility] ADC,CLC OR LCC ONLY - 2019-11-14 23:56:00 Enrique Story [facility] INFLUENZA A & B DIRECT Medical B ranch ANTIGEN NOTICE OF PRIVACY 2019-11-14 23:36:55 Doctor Ger, [facility] PRACTICES [place] [facility] CONSENT/REFUSAL FOR 2019-11-14 23:30:43 Doctor Ger [facility] DIAGNOSIS AND TREATMENT [place] [facility] AUTHORIZATION FOR RELEASE 2019-11-12 06:01:00 Doctor Ger, [facility] OF [facility] [place] [facility] POCT FLU A AND B 2019-11-09 01:11:00 Jeffrey Ko [facility] (MOLECULAR) [facility] THYROID STIMULATING 2019-10-30 16:31:00 Kiana Fraser [facility] HORMONE [facility] MICROALBUMIN URINE 2019-10-30 16:31:00 Kiana Fraser [facility] COMP. METABOLIC PANEL 2019-10-30 16:31:00 [facility]iana [facility] ([id number][facility] LIPID PANEL ([id number])(TOTAL 2019-10-30 16:31:00 Kiana Fraser [facility] CHOLESTEROL, [facility] Branch TRIGLYCERIDES, HDL) CBC WITH DIFFERENTIAL 2019-10-30 16:31:00 Kiana Fraser Un [facility] GLYCOSYLATED HEMOGLOBIN 2019-10-30 16:31:00 Kiana Fraser [facility] (A1C) [facility] [place] DISCLOSURE AND CONSENT, 2019-06-05 05:01:00 Doctor Unajonatan, [facility] MEDICAL AND SURGICAL [place] Medical Bra nch PROCEDURES XR SPINE THORACIC 3 VW 2019-06-03 00:45:31 Selma Staley [facility] XR LUMBAR SPINE 3 VW 2019-06-03 00:45:22 Selma Staley [facility] EXTERNAL PROVIDER RECORDS 2019-05-25 05:01:00 Doctor Unajonatan, [facility] [place] [facility] PNEUMOCOCCAL VACCINE, 2019-04-25 19:00:39 Kiana Fraser [facility] 23-VALENT (PNEUMOVAX) Medical Br anch NO SHOW OR MISSED 2019-04-25 18:05:48 Doctor Unajonatan [facility] APPOINTMENT POLICY [place] Medical [facility] ACKNOWLEDGEMENT INSURANCE CORRESPONDENCE 2019-04-16 05:01:00 Doctor Ger, [facility] [place] [facility] Encounters Start End Encounter Admission Attending Care Care Encounter Source Date/Time Date/Time Type Type Clinicians Facility Department ID 2021-11-29 Outpatient Gomez, [facility] [id number] [facility] [address] 10:03:01 Alber [id number] [facility] 2021-10-25 [facility] [id number] [facility] 13:49:01 Alber [id number] [facility] 2021-10-12 [facility] [id number] 14:23:26 Alber [id number] [facility] 2021-10-12 Out[facility] [id number] 14:17:00 Alber [id number] [facility] 2021-07-17 Emergency [facility] [id number] Univers 01:55:47 [facility] 2021-07-16 Emergency [facility] [id number] Univers 11:14:41 [facility] 2021-07-15 Emergency [facility] [id number] Univers 18:08:36 [facility] 2021-07-14 Outpatient Dulce MAURER [facility] GIHaider [id number] Univers 17:19:04 CRYSTAL [facility] 2021-11-29 2021-11-29 amb[facility] [id number] [facility] 2021-11-18 2021-11-18 ambulatory [facility] [id number] [facility] 2021-11-11 2021-11-11 KYM Oneal [id number] Univers 00:00:00 00:00:00 Wondiful A HEALTH [id number] ity [facility] [id number] Edward as PROFESSIO [phone] [address] ONE 2021-11-02 2021-11-02 Outpatient JULIANNE, [facility] [id number] [facility] 12:41:00 23:59:00 ROBERTO 2021-10-26 2021-10-26 ambulatory [facility] [id number] [facility] 2021-09-28 2021-09-28 ambulatory [facility] [id number] [facility] 2021-09-02 2021-09-02 ambulatory [facility] [id number] [facility] 2021-08-29 2021-08-29 ambulatory [facility] [id number] [facility] 2021-08-25 2021-08-25 ambulatory [facility] [id number] [facility] 2021-05-04 2021-05-04 Justo Fraser [facility] 1.2.840.114 [id number] Univers 00:00:00 00:00:00 Wondiful A [place] [id number] ity of [place] [id number] [place] Profess[place] [phone] [facility] nal 044 [facility] 2021-04-27 2021-04-27 Orders Doctor THOMAS 1.2.840.114 [id number] Univers 00:00:00 00:00:00 Only Unassigned, MELIZA [id number] ity of [place] [facility] [id number] Edward as [phone] [address] 2021-04-20 2021-04-20 ambulatory [facility]ML[facility] [id number] [facility] 00:[facility]:00 Emmanuel jorge Outpati ent Clinics 2021-03-14 2021-03-14 [facility] [id number] Univers 14:40:00 14:40:00 LUIS [id number] [facility] 2021-03-14 2021-03-14 [facility] [id number] Univers 14:40:00 14:40:00 [facility] 2021-03-08 2021-03-08 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 Pob I [facility] 1.2. 840.114 [id number] Univers 15:45:57 16:05:57 Visit Kiana Fraser [facility] [id number] 0 ity of [place] [id number] [place] as Professio [phone] [address] Office [facility] 2021-03-08 2021-03-08 Office [facility] 1.2.840.114 [id number] Univers 14:56:34 15:26:34 Visit [facility] [id number] i ty of [place] [id number] [place] as Professio [phone] [address] 2021-03-08 2021-03-08 Out[facility] [id number] Univers 15:00:00 15:00:00 EDWARD [id number] vito [facility] 2021-03-08 2021-03-08 Out[facility] [id number] Univers 15:00:00 15:00:00 EDWARD padron [facility] 2021-03-07 2021-03-07 Orders Doctor THOMAS 1.2.840.114 [id number] Univers 00:00:00 00:00:00 Only Unassigned, MELIZA [id number] ity of [place] [facility] [id number] Edward as [phone] [address] 2021-03-05 2021-03-05 Refgaurang Morrissey [facility] 1.2.840.114 [id number] Univers 00:00:00 00:00:00 Jenny Health [id number] it y of [place] [id number] [place] as Professio [phone] [address] 2021-03-05 2021-03-05 Refill Evelio [facility] 1.2.840.114 [id number] Univers 00:00:00 00:00:00 Wondiful A [place] [id number] it[id number] Profess[place] [phone] [address] 2021-02-22 2021-02-22 Refill [facility] 1.2.840.114 [id number] Univers 00:00:00 00:00:00 Wonful Pablo [facility] [id number] ity of [place] [id number] [place] as Professio [phone] [address] 2021-02-21 2021-02-21 Outpatient EKHAESE, MHSE EVERETT [id number] MH 10:04:00 15:44:00 OBONORUMA [facility] 2021-02-09 2021-02-09 Orders Doctor THOMAS 1.2.840.114 [id number] Univers 00:00:00 00:00:00 Only Unassigned, MELIZA [id number] ity of [place] [facility] [id number] Edward as [phone] [address] 2021-02-07 2021-02-07 Office Sunita [facility] 1.2.840.114 [id number] Univers 15:40:09 15:55:[address] [facility] [id number] it y of [place] [id number] [place] as Professio [phone] [address] Office Building One 2021-02-07 2021-02-07 Outpatient R SUNITA [facility] [id number] Univers 15:45:00 15:45:00 OMID ity [facility] 2021-02-07 2021-02-07 Outpatient R VIDAL, [facility] [id number] Univers 13:00:00 13:00:[id number] ity o [address] [facility] 2021-02-07 2021-02-07 Case [facility] 1.2.840.114 [id number] Univers 00:00:00 00:00:00 Management [facility] Pablo [facility] [id number] ity of [place] [id number] [place] as Professio [phone] [address] Office [facility] One 2021-02-04 2021-02-04 Urgent Provider, [facility] Urgent Care [facility] 1.2.840.114 [id number] Univers 16:53:21 17:45:02 Care Sol [facility] [id number] ity of [place] [id number] Edward as Professio [phone] [address] Office [facility] One 2021-02-04 2021-02-04 Outpatient R [facility] [id number] Univers 17:00:00 17:00:00 [id number] ity [facility] 2021-02-04 2021-02-04 [facility] [id number] Univers 17:00:00 17:00:00 MARTHA ity [facility] 2021-01-26 2021-01-26 Outpatient R [facility] [id number] Univers 09:40:00 09:40:00 [id number] ity [facility] 2021-01-26 2021-01-26 Outpatient R [facility] [id number] Univers 09:40:00 09:40:00 ity [facility] 2021-01-26 2021-01-26 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 840.114 [id number] Univers 08:47:10 09:15:12 Visit Kiana [facility] 350.1.13.1 0 ity of [place] [id number] [place] as Professio [phone] [address] One 2021-01-25 2021-01-25 Office [facility] 1.2.840.114 [id number] Univers 14:45:18 15:28:27 Visit Wondiful A Health [id number] ity of [place] [id number] Edward as Professio [phone] [address] One 2021-01-25 2021-01-25 Outpatient R EVELIO [facility] [id number] Univers 15:00:00 15:00:00 [address]IFUL [id number] ity o f [facility] 2021-01-25 2021-01-25 Outpatient R EVELIO [facility] [id number] Univers 15:00:00 15:00:[address] o [address] [facility] 2021-01-19 2021-01-19 Outpatient R SAKINA MILLAN [facility] [id number] Univers 14:00:00 14:00:00 SAKINA MILLAN [id number] [facility] 2021-01-19 2021-01-19 Outpatient R MEAGAN MILLANMSNamrata [facility] [id number] Univers 14:00:00 14:00:00 SAKINA MILLAN [facility] 2021-01-19 2021-01-19 Refill [facility] 1.2.840.114 [id number] Univers 00:00:00 00:00:00 Wondiful A [place] [id number] ity of [place] [id number] Profess[place] [phone] [address] 2021-01-04 2021-01-04 Outpatient R EVELIO [facility] [id number] Univers 16:15:00 16:15:00 WONBRIDGETFUL [id number] ity o f [facility] 2020-12-07 2020-12-07 [facility] [id number] Univers 10:15:00 10:15:00 SHEEBA [id number] ity o [facility] 2020-12-07 2020-12-07 Outpatient [facility] [id number] Univers 10:15:00 10:15:00 SHEEBA andrewewelina o [facility] 2020-12-01 2020-12-01 Justo [facility] 1.2.840.114 [id number] Univers 00:00:00 00:00:00 Wondiful A [facility] [id number] ity of [place] [id number] Edward as [facility] [phone] [address] Office [facility] One 2020-11-17 2020-11-17 Outpatient R SAKINA MILLAN [facility] [id number] Univers 14:30:00 14:30:00 SAKINA MILLAN [id number] ity [facility] 2020-11-17 2020-11-17 Outpatient R SAKINA MILLAN [facility] [id number] Univers 14:30:00 14:30:00 SAKINA MILLAN [facility] 2020-11-14 2020-11-14 Emergency [facility] [id number] Univers 12:38:00 15:59:00 Patricia [place] [id number] i ty of [place] [id number] [place] [facility] [phone] [facility] 084 Branch 2020-11-14 2020-11-14 Orders Doctor MARTHA 1.2.840.114 [id number] Univers 00:00:00 00:00:00 Only Unassigned, MELIZA [id number] ity of [place] [facility] [id number] Edward as [phone] [facility] 009 Branch 2020-11-09 2020-11-09 Office [facility] 1.2.840.114 [id number] Univers 10:21:15 11:08:18 Visit Sheeba Adam [id number] it[place] of [place] [id number] [place] Profess[place] [phone] Ut dical nal 205 [facility] 2020-11-09 2020-11-09 Outpatient R [facility] [id number] Univers 10:15:00 10:15:00 SHEEBA [id number] andrewy o [facility] 2020-11-09 2020-11-09 Outpatient R [facility] [id number] Univers 10:15:00 10:15:00 SHEEBA vito cosme [facility] 2020-10-22 2020-10-22 Refgaurang [facility] 1.2.840.114 [id number] Univers 00:00:00 00:00:00 Wondiful A Health [id number] ity of [place] [id number] Edward as Professio [phone] Ut dical nal 044 [place] Office [facility] One 2020-10-13 2020-10-13 Office [facility] [id number] Univers 14:30:00 15:00:00 Visit Sakina [place] [id number] ity of [place] [phone] Ut dical nal 085 [facility] 2020-10-13 2020-10-13 Outpatient R SAKINA MILLAN [facility] [id number] Univers 14:30:00 14:30:00 SAKINA MILLAN [id number] ity [facility] 2020-10-13 2020-10-13 Outpatient R SAKINA MILLAN [facility] [id number] Univers 14:30:00 14:30:00 [facility] 2020-10-09 2020-10-09 Patient [facility] 1.2.840.114 [id number] Univers 00:00:00 00:00:00 Outreach Henry [facility] 350.1.13.10 i ty of [facility] 4.2.7.2.686 [place] sal[place]ón KURTZ [phone] Ut dical [address] 2020-10-08 2020-10-08 Orders Doctor MARTHA 1.2.840.114 [id number] Univers 00:00:00 00:00:00 Only Unassigned, MELIZA 350.1.13.10 ity of [facility] 4.2.7.2.686 Edward as [phone] [address] 2020-10-06 2020-10-06 Orders Doctor MARTHA 1.2.840.114 [id number] Univers 00:00:00 00:00:00 Only Unassigned, MELIZA 350.1.13.10 ity of [facility] 4.2.7.2.686 Edward as [phone] [address] 2020-10-05 2020-10-05 Outpatient R [facility] [id number] -[id number] Univers 14:00:00 14:00:[id number] [facility] 2020-10-05 2020-10-05 [facility] [id number] Univers 14:00:00 14:00:[address] [facility] 2020-10-05 2020-10-05 Orders Doctor THOMAS 1.2.840.114 [id number] Univers 00:00:00 00:00:00 Only Unassigned, MELIZA 350.1.13.10 ity of [facility] 4.2.7.2.686 Edward as [phone] [address] 2020-10-05 2020-10-05 Telephone [facility] 1.2.840.114 [id number] Univers 00:00:00 00:00:00 [facility]iful [facility] 350.1.13.10 ity of [place] 4.2.7.2.686 Edward as Juan Pablo [phone] Ut dical nal [address] One 2020-09-28 2020-09-28 [facility] 1.2.840.114 [id number] Univers 09:23:42 10:43:16 Visit Sheeba Medina 350.1.13.10 ity of [place] [phone] [facility] 205 [facility] 2020-09-28 2020-09-28 Outpatient R JAYLA [facility] [id number]-20 Univers 09:15:00 09:15:[id number] [facility] 2020-09-28 2020-09-28 Outpatient R JAYLA [facility] [id number] Univers 09:15:00 09:15:[address] [facility] 2020-09-28 2020-09-28 Telephone [facility] 1.2.840.114 [id number] Univers 00:00:00 00:00:00 [facility]iful [facility] 350.1.13.10 ity of [place] 4.2.7.2.686 Edward as Professio [phone] [address] One 2020-09-21 2020-09-21 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 840.114 [id number] Univers 13:34:10 13:54:10 Visit Ronal Fraserfarrukh [facility] 350.1.13.1 0 ity of [place] 4.2.7.2.686 [place] as Professio [phone] [address] One 2020-09-21 2020-09-21 Office [facility] 1.2.840.114 [id number] Univers 12:43:33 13:35:18 Visit [facility] 350.1.13.10 ity of [place] 4.2.7.2.686 [place] as Professio [phone] [address] Office [facility] One 2020-09-21 2020-09-21 Outpatient R EVELIO [facility] [id number] N-20 Univers 13:00:00 13:00:00 WONDIFUL [id number] ity o [address] [facility] 2020-09-21 2020-09-21 Outpatient R EVELIO [facility] [id number] Univers 13:00:00 13:00:[address] ity o [address] [facility] 2020-09-15 2020-09-15 Outpatient R EVELIO [facility] [id number]-20 Univers 15:00:00 15:00:00 WONDIFUL [id number] ity o f [facility] 2020-09-06 2020-09-06 Refgaurang [facility] 1.2.840.114 [id number] Univers 00:00:00 00:00:00 Wondiful A [place] 350.1.13.10 ity of [place].2.[place] [phone] [address] 2020-09-01 2020-09-01 Outpatient [facility] [id number] Univers 13:30:00 13:30:00 TITUS [id number] [facility] 2020-09-01 2020-09-01 Out[facility] [id number] Univers 13:30:00 13:30:00 TITUS [facility] 2020-09-01 2020-09-01 Jose Maria [facility] 1..840.114 [id number] Univers 00:00:00 00:00:00 Management [facility] 350.1.13.10 ity of [place] 4.2.7.2.686 [place] as Professio [phone] [address] Office [facility] 2020-08-31 2020-08-31 Refgaurang [facility] 1..840.114 [id number] Univers 00:00:00 00:00:00 [facility] 350.1.13.10 ity of [place] 4.2.7.2.686 Edward as Professio [phone] [address] Office [facility] 2020-08-30 2020-08-30 Emergency Warren, Lona [facility] 1..840.114 [id number] Univers 18:51:00 23:05:00 Shahla [place] 350.1.13.10 i ty of [place]2.7.2.[place] [phone] [address] 2020-08-30 2020-08-30 Telephone [facility] 1..840.114 [id number] Univers 00:00:00 00:00:00 [facility]iful [facility] 350.1.13.10 ity of [place] 4.2.7.2.686 Edward as Professio [phone] Ut dical nal [address] One 2020-08-26 2020-08-26 [facility] 1.2.840.114 [id number] Univers 00:00:00 00:00:00 Management [facility] 350.1.13.10 ity of [place] 4.2.7.2.686 Edward as Professio [phone] Ut dical nal [address] One 2020-08-25 2020-08-25 [facility] 1.2.607.798 [id number] Univers 13:02:50 13:10:00 Encounter Wondiful A [place] 350.1.13.10 ity of [place]2.7.2.686 [place] [phone] [facility] [address] 2020-08-25 2020-08-25 Hospital [facility] 1.2.955.823 [id number] Univers 12:47:30 13:01:00 Encounter Wondiful A [place] 350.1.13.10 ity of [place] 4.2.7.2.686 [place] [phone] [facility] [address] 2020-08-25 2020-08-25 Outpatient [facility] [id number] N-20 Univers 13:00:00 13:00:00 WONDIFUL [id number] ity o f [facility] 2020-08-25 2020-08-25 Outpatient [facility] [id number] Univers 00:00:00 00:00:[address] o f [facility] 2020-08-25 2020-08-25 Refgaurang DrakeCH[facility] 1.2.840.114 [id number] Univers 00:00:00 00:00:00 Álvarojun [place] 350.1.13.10 ity of [place]2.7.2.[place] [phone] Ut dical nal 059 [facility] 2020-08-25 2020-08-25 [facility] 1.2.840.114 [id number] Univers 00:00:00 00:00:00 Management [facility] 350.1.13.10 ity of [place] 4.2.7.2.686 [place] as Professio [phone] [address] Office [facility] 2020-08-24 2020-08-24 Ultrasonic Welding Machine Operator Lab, Adc Fam Pob I [facility] 1.2. 840.114 [id number] Univers 10:22:51 10:42:51 Visit Ronal Fraserfarrukh [facility] 350.1.13.1 0 ity of [place] 4.2.7.2.686 [place] as Professio [phone] [address] 2020-08-24 2020-08-24 Outpatient R [facility] [id number] Univers 10:20:00 10:20:[id number] [facility] 2020-08-24 2020-08-24 Outpatient [facility] [id number] Univers 10:20:00 10:20:[address] ity o f [facility] 2020-08-23 2020-08-23 Office [facility] 1.2.840.114 [id number] Univers 09:39:39 17:20:11 Visit [facility] 350.1.13.10 ity of [place] 4.2.7.2.686 Edward as Professio [phone] [address] 2020-08-23 2020-08-23 Outpatient [facility] [id number]-20 Univers 16:15:00 16:15:[address] o f [facility] 2020-08-23 2020-08-23 Outpatient [facility] [id number] Univers 16:15:00 16:15:[address] ity o f [facility] 2020-08-16 2020-08-16 Telephone [facility] 1.2.840.114 [id number] Univers 00:00:00 00:00:00 W[facility]iful [facility] 350.1.13.10 ity of [place] 4.2.7.2.686 Edward as Professio [phone] Me dical nal 044 [facility] 2020-08-13 2020-08-13 Refgaurang FraserCH[facility] 1.2.840.114 [id number] Univers 00:00:00 00:00:00 [facility]iful [facility] 350.1.13.10 ity of [place] 4.2.7.2.686 Edward as Professio [phone] [facility] 044 [facility] 2020-08-11 2020-08-11 Office [facility] 1.2.122.195 [id number] Univers 15:12:55 15:42:55 Visit Sakina Medina 350.1.13.10 ity of [place]2.[place].2.[place] [phone] [facility] 085 [facility] 2020-08-11 2020-08-11 Outpatient R SAKINA MILLAN [facility] [id number] Univers 15:30:00 15:30:00 SAKINA MILLAN 2010 ity [facility] 2020-08-11 2020-08-11 Outpatient R SAKINA MILLAN [facility] [id number] Univers 15:30:00 15:30:00 SAKINA MILLAN ity [facility] 2020-08-11 2020-08-11 Orders Doctor MARTHA 1.2.840.114 [id number] Univers 00:00:00 00:00:00 Only Unassigned, MELIZA 350.1.13.10 ity of [place] [facility] 4.2.7.2.686 Edward as [phone] [address] 2020-08-09 2020-08-09 Office [facility] 1.2.840.114 [id number] Univers 14:34:46 15:13:12 Visit Luis Medina 350.1.13.10 ity of [place] 4.2.7.2.[place] [phone] [facility] 059 [facility] 2020-08-09 2020-08-09 Outpatient R VIDAL [facility] [id number] -[id number] Univers 14:40:00 14:40:[address] LUIS [id number] ity o f [facility] 2020-08-09 2020-08-09 Outpatient R VIDAL, [facility] [id number] Univers 14:40:00 14:40:00 LUIS padron o f [facility] 2020-07-17 2020-07-17 Outpatient [facility] [id number] -[id number] Univers 20:00:00 20:00:[id number] [facility] 2020-07-17 2020-07-17 Outpatient R SAKINA MILLAN [facility] [id number] Univers 20:00:00 20:00:00 ATASAKINA MURRIETA ity of [facility] 2020-07-17 2020-07-17 Orders Doctor MARTHA 1.2.840.114 [id number] Univers 00:00:00 00:00:00 Only MarelyssMELIZA kumar 350.1.13.10 ity of [facility] 4.2.7.2.686 Edward [phone] [facility] [address] 2020-07-16 2020-07-16 Ultrasonic Welding Machine Operator 1, [facility] Sleep Lab Bed [facility] 1. 2.840.114 [id number] Univers 13:58:59 16:28:59 Visit Sakina Millan 350.1.13. 10 ity of [place] 4.2.7.2.686 [facility] [phone] [facility] [address] 2020-07-15 2020-07-15 Laboratory Only, [facility] Test [facility] 1.2.840. 114 [id number] Univers 11:55:53 12:10:53 Only Kevin Greene 350.1.13.10 ity of [place] 4.2.7.2.686 [facility] [phone] [facility] [address] 2020-07-15 2020-07-15 Outpatient [facility] [id number] -[id number] Univers 11:45:00 11:45:[id number] [facility] 2020-07-15 2020-07-15 Outpatient R [facility] [id number] Univers 11:45:00 11:45:[address] [facility] 2020-07-09 2020-07-09 Office [facility] 1.2.840.114 [id number] Univers 11:44:34 12:19:20 Visit Qiangjun [place] 350.1.13.10 ity of [place]2.[place].2.[place] [phone] Ut dical nal 059 [facility] 2020-07-09 2020-07-09 Outpatient R VIDAL, [facility] [id number] -[id number] Univers 11:40:00 11:40:00 PEARLVIBHALORNA [id number] ity o f [facility] 2020-07-09 2020-07-09 [facility] [id number] Univers 11:40:00 11:40:00 LUIS ity o f [facility] 2020-07-09 2020-07-09 Refgaurang [facility] 1.2.840.114 [id number] Univers 00:00:00 00:00:00 Wondiful A [place] 350.1.13.10 ity of [place] 4.2.7.2.[place] [phone] [facility] 044 [facility] 2020-07-07 2020-07-07 Office [facility] 1.2.082.397 [id number] Univers 14:17:59 14:47:59 Visit Sakina Collins [place] 350.1.13.10 ity of [place] 4.2.7.2.[place] [phone] Ut dical nal 085 [facility] 2020-07-07 2020-07-07 Outpatient R SAKINA MILLAN [facility] [id number] Univers 14:30:00 14:30:00 SAKINA MILLAN [id number] [facility] 2020-07-07 2020-07-07 Outpatient R JEFF MILLANL [facility] [id number] Univers 14:30:00 14:30:[address] M[address]ANL ity of [facility] 2020-07-06 2020-07-06 Refgaurang [facility] 1.2.840.114 [id number] Univers 00:00:00 00:00:00 [facility]iful [facility] 350.1.13.10 ity of [place] 4.2.7.2.686 Edward as Professio [phone] [facility] 044 [facility] 2020-06-29 2020-06-29 Telephone Evelio [facility] 1.2.840.114 [id number] Univers 00:00:00 00:00:00 W[facility]iful [facility] 350.1.13.10 ity of [place] 4.2.7.2.686 Edward as Professio [phone] Ut schuyler Rogers [facility] 2020-06-28 2020-06-28 Case Evelio [facility] 1.2.840.114 [id number] Univers 00:00:00 00:00:00 Management [facility] 350.1.13.10 ity of [place] 4.2.7.2.686 Edward as Professio [phone] Ut schuyler nal Sue [facility] 2020-06-21 2020-06-21 Ultrasonic Welding Machine Operator Lab, Adc Fam Pob I [facility] 1.2. 840.114 [id number] Univers 15:51:13 16:01:13 Visit Kiana [facility] 350.1.13.1 0 ity of [place] 4.2.7.2.686 Edward as Professio [phone] Ut schuyler Rogers [facility] 2020-06-21 2020-06-21 Office Evelio [facility] 1.2.840.114 [id number] Univers 14:55:43 15:53:28 Visit [facility]iful [facility] 350.1.13.10 ity of [place] 4.2.7.2.686 Edward as Professio [phone] Ut schuyler cam [address] [place] [address] 2020-06-21 2020-06-21 Outpatient R EVELIO [facility] [id number]-20 Univers 15:15:00 15:15:00 W[address]IF[address] [id number] ity o f [facility] 2020-06-21 2020-06-21 Outpatient R EVELIO [facility] [id number] Univers 15:15:00 15:15:[address] ity o f [facility] 2020-06-17 2020-06-17 Ultrasonic Welding Machine Operator Tech, Adc Sleep Lab [facility] 1.2 .840.114 [id number] Univers 13:00:28 13:15:28 Visit Sakina Millan T [place] 350.1.13. 10 ity of [place] 4.2.7.2.686 [facility] [phone] [facility] [address] 2020-06-17 2020-06-17 Outpatient R [facility] [id number] Univers 13:00:00 13:00:[address] [facility] 2020-06-17 2020-06-17 Outpatient R [facility] [id number] Univers 13:00:00 13:00:[address] [facility] 2020-06-15 2020-06-15 Outpatient R [facility] [id number] -[id number] Univers 14:00:00 14:00:[id number] [facility] 2020-06-15 2020-06-15 Outpatient R ELSAKHALIDA [facility] [id number] Univers 14:00:00 14:00:00 [facility] 2020-06-11 2020-06-11 Outpatient R [facility] [id number] -[id number] Univers 15:00:00 15:00:[id number] [facility] 2020-06-11 2020-06-11 Outpatient R [facility] [id number] Univers 15:00:00 15:00:[address] [facility] 2020-06-11 2020-06-11 Laboratory Only, Adc Test [facility] 1.2.840. 114 [id number] Univers 14:10:00 14:25:00 Only Kevin Greene 350.1.13.10 ity of [place] 4.2.7.2.686 [facility] [phone] [facility] [address] 2020-06-11 2020-06-11 Orders Doctor MARTHA 1.2.840.114 [id number] Univers 00:00:00 00:00:00 Only Unassigned, MELIZA 350.1.13.10 ity of [place] [facility] 4.2.7.2.686 [facility] [phone] [facility] [address] 2020-06-09 2020-06-09 Office Vidal, [facility] 1.2.840.114 [id number] Univers 14:14:37 14:57:58 Visit Luis Medina 350.1.13.10 ity of [place] 4.2.7.2.[place] [phone] Ut schuyler cam 059 [facility] 2020-06-09 2020-06-09 Outpatient R VIDAL, [facility] [id number] -[id number] Univers 14:20:00 14:20:00 LUIS [id number] ity o [facility] 2020-06-09 2020-06-09 Outpatient R VIDAL, [facility] [id number] Univers 14:20:00 14:20:00 QIATOBY ity o [facility] 2020-06-09 2020-06-09 Telephone [facility] 1.2.840.114 [id number] Univers 00:00:00 00:00:00 Wondiful A [facility] 350.1.13.10 ity of [place] 4.2.7.2.686 Edward as Professio [phone] [facility] 044 [facility] 2020-06-08 2020-06-08 Outpatient R EVELIO, [facility] [id number]-20 Univers 11:45:00 11:45:00 WONDIFUL [id number] ity o [facility] 2020-06-08 2020-06-08 Outpatient R EVELIO, [facility] [id number] Univers 11:45:00 11:45:00 WONDIFUL ity o [facility] 2020-06-07 2020-06-07 Office [facility] 1.2.840.114 [id number] Univers 10:11:55 10:51:44 Visit W[facility]iful [facility] 350.1.13.10 ity of [place] 4.2.7.2.686 Edward as Professio [phone] [address] 2020-06-07 2020-06-07 Outpatient R EVELIO, [facility] [id number]-20 Univers 10:00:00 10:00:00 WONDIFUL [id number] ity o [facility] 2020-06-07 2020-06-07 Outpatient R EVELIO, [facility] [id number] Univers 10:00:00 10:00:00 WONDIFUL ity o [facility] 2020-06-07 2020-06-07 Refill [facility] 1.2.840.114 [id number] Univers 00:00:00 00:00:00 Wondiful A Health 350.1.13.10 ity of [place] 4.2.7.2.686 Edward as Professio [phone] [address] 2020-06-03 2020-06-03 Emergency [facility] 1.2.840.114 [id number] Univers 15:17:00 18:33:00 Ko B [place] 350.1.13.10 i ty of [place]2.7.2.686 [place] [phone] [address] 2020-06-03 2020-06-03 Telephone [facility] 1.2.840.114 [id number] Univers 00:00:00 00:00:00 Wondiful A [facility] 350.1.13.10 ity of [place] 4.2.7.2.686 Edward as Professio [phone] [address] 2020-06-01 2020-06-01 Refill [facility] 1.2.840.114 [id number] Univers 00:00:00 00:00:00 Wondiful A [place] 350.1.13.10 ity of [place] 4.2.7.2.686 [place] [phone] [address] 2020-05-10 2020-05-27 Office [facility] 1.2.840.114 [id number] Univers 13:59:31 17:39:50 Visit Wondiful A [place] 350.1.13.10 ity of [place] 4.2.7.2.686 [place] [phone] [address] 2020-05-23 2020-05-23 Refill [facility] 1.2.840.114 [id number] Univers 00:00:00 00:00:00 Wondiful A Health 350.1.13.10 ity of [place] 4.2.7.2.686 Edward as Professio [phone] [address] 2020-05-12 2020-05-12 Outpatient [facility] [id number] Univers 11:00:00 11:00:[id number] [facility] 2020-05-10 2020-05-10 Ultrasonic Welding Machine Operator 2, Adc Lab [facility] 1..840.114 [id number] Univers 15:20:43 15:35:43 Visit Evelio Wonbridgetful A [place] 350.1.13. 10 ity of [place] 4.2.7.2.686 [place] [phone] [facility] 353 [facility] 2020-05-10 2020-05-10 Outpatient R EVELIO [facility] [id number] N-20 Univers 15:30:00 15:30:00 W[address]IF[address] [id number] ity o f [facility] 2020-05-10 2020-05-10 Outpatient R EVELIO [facility] [id number] Univers 15:30:00 15:30:[address] ity o f [facility] 2020-04-16 2020-04-16 Refill [facility] 1.2.840.114 [id number] Univers 00:00:00 00:00:00 Wondiful A Health 350.1.13.10 ity of [place] 4.2.7.2.686 Edward as Professio [phone] [address] 2020-04-13 2020-04-13 Telephone [place] [facility] 1..840.114 [id number] Univers 00:00:00 00:00:00 Wondiful A [place] 350.1.13.10 ity of [place] 4.2.7.2.[place] [phone] [address] 2020-04-13 2020-04-13 Refill [facility] 1.2.840.114 [id number] Univers 00:00:00 00:00:00 Wondiful A Health 350.1.13.10 ity of [place] 4.2.7.2.686 Edward as Professio [phone] [address] 2020-04-12 2020-04-12 Orders Doctor THOMAS 1..840.114 [id number] Univers 00:00:00 00:00:00 Only Unassigned, MELIZA 350.1.13.10 ity of [place] [facility] 4.2.7.2.686 Edward as [phone] [facility] [address] 2020-02-26 2020-02-26 Office [facility] 1.2.840.114 [id number] Univers 14:19:17 15:14:21 Visit Bhavin Medina 350.1.13.10 i ty of [place] 4.2.7.2.686 [place] [phone] Ut dical nal 085 [facility] 2020-02-26 2020-02-26 Outpatient [facility] [id number]-20 Univers 14:20:00 14:20:00 BHAVIN CLAYTON [id number] i ty of [facility] 2020-02-26 2020-02-26 Outpatient R MARIA GUADALUPE CLAYTONMNXavi [facility] [id number] Univers 14:20:00 14:20:00 BHAVIN CLAYTON i ty of [facility] 2020-02-23 2020-02-23 Telephone Motility, [facility] 1.2.840.114 [id number] Univers 00:00:00 00:00:00 Endoscopy ICAL 350.1.13.10 ity of [facility] 4.2.7.2.686 Edward as BLDG [id number] [facility] [address] [place] 2020-02-19 2020-02-19 Outpatient R BHAVIN CLAYTON [facility] [id number] Univers 09:40:00 09:40:00 BHAVIN CLAYTON [id number] i ty of [facility] 2020-02-16 2020-02-16 Orders Doctor THOMSA 1.2.840.114 [id number] Univers 00:00:00 00:00:00 Only Unassigned, MELIZA 350.1.13.10 ity of [facility] 4.2.7.2.686 Edward as [phone] [address] 2020-01-20 2020-01-20 [facility] 1.2.840.114 [id number] Univers 00:00:00 00:00:00 W[facility]iful [facility] 350.1.13.10 ity of [place] 4.2.7.2.686 Edward as Professio [phone] [facility] 044 [facility] 2020-01-19 2020-01-19 Telephone [facility] [id number] Univers 00:00:00 00:00:00 [place] 350.1.13.10 ity [place] 4[place]2.7.2.686 [place] Profess[place] [phone] [facility] 059 [facility] 2020-01-16 2020-01-16 Telephone [facility] 1.2.840.114 [id number] Univers 00:00:00 00:00:00 Wondiful [facility] 350.1.13.10 ity of [place] 4.2.7.2.686 Edward as Professio [phone] [facility] 044 [facility] [facility] [place] 2020-01-12 2020-01-12 Telephone [facility] 1.2.840.114 [id number] Univers 00:00:00 00:00:00 [place] 350.1.13.10 it[place] [phone] [facility] 044 [facility] 2020-01-12 2020-01-12 Orders Doctor MARTHA 1.2.840.114 [id number] Univers 00:00:00 00:00:00 Only Unassigned, MELIZA 350.1.13.10 ity of [place] [facility] 4.2.7.2.686 Edward as [phone] [address] 2020-01-05 2020-01-05 Outpatient R EVELIO [facility] [id number] N-20 Univers 08:15:00 08:15:00 WONDIFUL [id number] ity o f [facility] 2020-01-05 2020-01-05 Outpatient R EVELIO [facility] [id number] Univers 08:15:00 08:15:[address] o f [facility] 2020-01-05 2020-01-05 Telemedici [facility] 1.2.840.114 [id number] Univers 07:03:47 07:33:47 ne Visit W[place]iful [place] 350.1.13.10 [place] [phone] [address] 2019-12-30 2019-12-30 [facility] 1.2.840.114 [id number] Univers 00:00:00 00:00:00 Wondiful A Health 350.1.13.10 ity of [place] 4.2.7.2.686 [place] as Professio [phone] [address] Office [facility] 2019-12-23 2019-12-23 Telemedici [facility] 1.2.840.114 [id number] Univers 07:43:58 15:05:06 ne Visit Wondiful [place] 350.1.13.10 [place] [phone] [address] 2019-12-23 2019-12-23 [facility] [id number] N-20 Univers 13:00:00 13:00:[id number] ity o f [facility] 2019-12-23 2019-12-23 [facility] [id number] Univers 13:00:00 13:00:[address] [facility] 2019-12-21 2019-12-21 Refill [facility] 1.2.840.114 [id number] Univers 00:00:00 00:00:00 Wondiful A Health 350.1.13.10 ity of [place] 4.2.7.2.686 [place] as Professio [phone] [address] 2019-12-11 2019-12-11 Transition Bonnie Rios 1.2.840.114 [id number] Univers 00:00:00 00:00:00 of Care Sofia Price 350.1.13.10 it y of [place].2.[place] [phone] [address] 2019-12-10 2019-12-10 Transition Bonnie Rios 1.2.840.114 [id number] Univers 00:00:00 00:00:00 of Care Sofia Price 350.1.13.10 it y of [place].2.[place] [phone] [facility] [address] 2019-12-10 2019-12-10 Telephone Evelio [facility] 1.2.840.114 [id number] Univers 00:00:00 00:00:00 [place] 350.1.13.10 ity of [place]7.2.[place] [phone] [address] 2019-12-06 2019-12-09 Inpatient X [facility] [id number] Univers 20:15:25 19:57:[address] [facility] 2019-12-06 2019-12-09 [facility] Everton Scott [facility] 1.2.840.114 [id number] Univers 20:15:25 19:57:00 Encounter ErnestoReji livingstonewelina Med[place] 350.1.13.10 ity of [place].2.[place] [phone] [facility] [address] 2019-12-09 2019-12-09 [facility] 1.2.840.114 [id number] Univers 00:00:00 00:00:00 Wondiful A Health 350.1.13.10 ity of [place] 4.2.7.2.686 [place] as Professio [phone] [address] Office [facility] 2019-11-28 2019-11-28 Outpatient R JUANCARLOS [facility] [id number] -20 Univers 08:30:00 08:30:[id number] it[address] [facility] 2019-11-19 2019-11-19 Telephone Motility, [facility] 1.2.840.114 [id number] Univers 00:00:00 00:00:00 Endoscopy ICAL 350.1.13.10 ity of [place] 4.2.7.2.686 Edward as BLDG [phone] [facility] [address] 2019-11-18 2019-11-18 Telephone Motility, [facility] 1.2.840.114 [id number] Univers 00:00:00 00:00:00 Endoscopy ICAL 350.1.13.10 ity of [place] 4.2.7.2.686 Edward as BLDG [phone] [facility] [address] 2019-11-14 2019-11-14 Emergency X JOSE GUADALUPE [facility] ERT [id number] Univers 18:32:04 20:53:[address] [facility] 2019-11-14 2019-11-14 Emergency Jose Guadalupe [facility] 1.2.413.082 [id number] Univers 18:32:04 20:53:00 Patricia [place] 350.1.13.10 i ty of [place] 4.2.7.2.686 [place] [facility] [phone] [facility] [address] 2019-11-14 2019-11-14 Orders Doctor MARTHA 1.2.840.114 [id number] Univers 00:00:00 00:00:00 Only Unassigned, MELIZA 350.1.13.10 ity of [place] [facility] 4.2.7.2.686 Edward as [phone] [facility] [address] 2019-11-13 2019-11-13 Telephone Motility, [facility] 1.2.840.114 [id number] Univers 00:00:00 00:00:00 Endoscopy ICAL 350.1.13.10 ity of [place] 4.2.7.2.686 Edward as BLDG [phone] [facility] [address] 2019-11-12 2019-11-12 Orders Doctor MARTHA 1.2.840.114 [id number] Univers 00:00:00 00:00:00 Only Unassigned, MELIZA 350.1.13.10 ity of [place] [facility] 4.2.7.2.686 Edward as [phone] [facility] [address] 2019-11-08 2019-11-08 Urgent Jeffrey Ko [facility] 1.2.840.11 [id number] Univers 18:44:29 18:59:29 Care Unknown, Attending Health 350.1.13.10 ity of Surgical 4.2.7.2.686 [place] as Specialti [phone] Ut dical es [address] [facility] 2019-11-06 2019-11-06 Telephone Motility, [facility] 1.2.840.114 [id number] Univers 00:00:00 00:00:00 Endoscopy ICAL 350.1.13.10 ity of [place] 4.2.7.2.686 Edward as BLDG [phone] [address] 2019-11-04 2019-11-04 Telephone Motility, [facility] 1.2.840.114 [id number] Univers 00:00:00 00:00:00 Endoscopy ICAL 350.1.13.10 ity of [place] 4.2.7.2.686 Edward as BLDG [phone] [address] 2019-10-30 2019-10-30 Office Evelio [facility] 1.2.840.114 [id number] Univers 09:26:55 10:26:49 Visit Wondiful A Health 350.1.13.10 ity of [place] 4.2.7.2.686 Edward as Professio [phone] [address] Office [facility] 2019-10-30 2019-10-30 Case Evelio [facility] 1.2.840.114 [id number] Univers 00:00:00 00:00:00 Management Wondiful A Health 350.1.13.10 ity of [place] 4.2.7.2.686 Edward as Professio [phone] [address] Office [facility] 2019-10-30 2019-10-30 Refill Evelio, [facility] 1.2.840.114 [id number] Univers 00:00:00 00:00:00 Wondiful A Health 350.1.13.10 ity of [place] 4.2.7.2.686 [place] as Professio [phone] [address] Office [facility] 2019-10-21 2019-10-21 Telephone Motility, [facility] 1.2.840.114 [id number] Univers 00:00:00 00:00:00 Endoscopy ICAL 350.1.13.10 ity of [place] 4.2.7.2.686 [place] as BLDG [phone] [address] 2019-10-09 2019-10-09 Telephone Motility, [facility] 1.2.840.114 [id number] Univers 00:00:00 00:00:00 Endoscopy ICAL 350.1.13.10 ity of [place] 4.2.7.2.686 Edward as BLDG [phone] [facility] [address] 2019-08-27 2019-08-27 Outpatient R EVELIO [facility] [id number] Univers 09:22:45 23:59:[address] [facility] 2019-06-06 2019-06-06 Prep For Lakshmi [facility] 1.2.840.114 [id number] Univers 00:00:00 00:00:00 Surgery Titus [place] 350.1.13.10 [place] of [place] [phone] Ut dical nal 204 [facility] 2019-06-05 2019-06-05 Office Jacob [facility] 1.2.983.958 [id number] Univers 12:56:30 14:21:14 Visit Crystal [place] 350.1.13.10 i ty of [place]2.[place].2.[place] [phone] Me dical nal 377 [facility] 2019-06-05 2019-06-05 Orders Doctor MARTHA 1.2.840.114 [id number] Univers 00:00:00 00:00:00 Only Unassigned, MELIZA 350.1.13.10 ity of [place] [facility] 4.2.7.2.686 Edward as [phone] [facility] [address] 2019-06-02 2019-06-02 [facility] 1.2.840.114 [id number] Univers 18:45:00 23:59:00 Encounter [facility] 350.1.13.10 ity of Surgical 4.2.7.2.686 [place] as Specialti [phone] Me dical es 808 [facility] 2019-06-02 2019-06-02 Urgent Selma Staley [facility] 1.2.840.114 [id number] Univers 18:15:15 19:44:45 Care Unknown, Attending Health 350.1.13.10 ity of Surgical 4.2.7.2.686 [place] as Specialti [phone] Me dical es 370 [facility] 2019-06-02 2019-06-02 [facility] 1.2.840.114 [id number] Univers 18:40:00 18:44:00 Encounter [facility] 350.1.13.10 ity of Surgical 4.2.7.2.686 [place] as Specialti [phone] Ut dical es 8[address] [facility] 2019-06-02 2019-06-02 Telephone [place], [facility] 1.2.840.114 [id number] Univers 00:00:00 00:00:00 Wondiful A Health 350.1.13.10 ity of [place] 4.2.7.2.686 Edward as Professio [phone] [facility] nal [address] Office [facility] 2019-05-25 2019-05-25 Orders Doctor MARTHA 1.2.840.114 [id number] Univers 00:00:00 00:00:00 Only Unassigned, MELIZA 350.1.13.10 ity of [place] [facility] 4.2.7.2.686 Edward as [phone] [address] 2019-04-25 2019-04-25 Office Evelio [facility] 1.2.840.114 [id number] Univers 13:05:24 14:13:17 Visit Wondiful A Health 350.1.13.10 ity of [place] 4.2.7.2.686 [place] as Professio [phone] [address] 2019-04-25 2019-04-25 Orders Doctor MARTHA 1.2.840.114 [id number] Univers 00:00:00 00:00:00 Only Unassigned, MELIZA 350.1.13.10 ity of [place] [facility] 4.2.7.2.686 Edward as [phone] [address] 2019-04-16 2019-04-16 Orders Doctor MARTHA 1.2.840.114 [id number] Univers 00:00:00 00:00:00 Only Unassigned, MELIZA 350.1.13.10 ity of [place] [facility] 4.2.7.2.686 Edward as [phone] [address] Results Test Description Test Time Test Comments Results Result Comments Source IRON PANEL 2021-01-26 22:03:42 Test Item Value Reference Range Interpretation Comme nts IRON (test code = 6721747447) 80 ug/dL 50-160 TIBC (test code = 0194418492) 386 ug/dL 250-410 % FE SAT (test code = 8629803245) 21 % 20-50 Lab Interpretation (test code = 55245-6) Normal [facility]EMOGLOBIN (A1C)2021-01-26 17:18:15 Test Item Value Reference Range Interpretation Comments HGB A1C (test code = 6.0 % 4.0-5.7 H 4548-4) KANU (test code = KANU) Reference RangesNormal: <5.7%Prediabetes: 5.7 - 6.4%Diabetes: > 6.5% Lab Interpretation (test Abnormal code = 08273-3) [facility] HospitalFERRITIN [id number] 17:13:28 Test Item Value Reference Range Interpretation Comments FERRITIN (test code = 13.0 ng/mL 11.0-264.0 7824060501) KANU (test code = KANU) Biotin has been reported to cause a negative bias, interpret results relative to patient's use of biotin. Lab Interpretation (test Normal code = 69220-9) [facility] HospitalTHYROID STIMULATING [id number] 17:09:08 Test Item Value Reference Range Interpretation Comments TSH (test code = See_Comment [Automated message] 5820469631) The system [employer] generated this result transmitted ref erence range: 0.45 - 4 .70 mIU/L. The refe rence range was not u sed to interpret this result as normal/abnor mal. Lab Interpretation (test Normal code = 88009-0) [facility] HospitalCOMP. METABOLIC PANEL (72390)2021-01-26 16:38:01 Test Item Value Reference Range Interpretation Comments NA (test code = 138 mmol/L 135-145 4874152679) K (test code = 5.2 mmol/L 3.5-5.0 H 9359176530) CL (test code = 103 mmol/L 98-108 7208286827) CO2 TOTAL (test code = 25 mmol/L 23-31 3890323606) AGAP (test code = 2-16 3463243177) BUN (test code = 23 mg/dL 7-23 8536304886) GLUCOSE (test code = 122 mg/dL 70-110 H 2345724398) CREATININE (test code = 1.15 mg/dL 0.50-1.04 H 9214070223) TOTAL BILI (test code = 0.6 mg/dL 0.1-1.2 1695412634) CALCIUM (test code = 9.5 mg/dL 8.6-10.6 1969321414) T PROTEIN (test code = 6.9 g/dL 6.3-8.2 9314994778) ALBUMIN (test code = 4.4 g/dL 3.5-5.0 4308251518) ALK PHOS (test code = 61 U/L 34-122 0142015822) ALTv (test code = 18 U/L 5-35 2-6) AST(SGOT) (test code = 36 U/L 13-40 9585643467) eGFR (test code = mL/min/1.73m2 6774392425) KANU (test code = KANU) Association of [...] tests). Lab Interpretation Abnormal (test code = 14360-6) [facility] HospitalLIPID PANEL (85731)(TOTAL CHOLESTEROL, TRIGLYCERIDES, HDL)2021-01-26 16:38:01 Test Item Value Reference Range Interpretation Comments CHOL (test code = 229 mg/dL 120-200 H 6518033236) HDL (test code = 49 mg/dL >50 L 7348788024) HDLC RATIO (test code = See_Comment H [Au tomated message] 4319529871) The system [employer] generated this result transmit cesar reference range : <=4.5. The refe rence range was not u sed to interpret th is result as normal/abnormal . TRIG (test code = 165 mg/dL 30-170 5143081591) LDL CHOL (test code = 147 mg/dL See_Comment [Auto mated message] 36580-3) The system [employer] generated this result transmit cesar reference range : <=160. The refe rence range was not u sed to interpret th is result as normal/abnormal . VLDL (test code = 33 mg/dL 5-60 1105140180) Lab Interpretation (test Abnormal code = 32798-9) [facility] HospitalCBC WITHOUT [id number] 15:50:14 Test Item Value Reference Range Interpretation Comments WBC (test code = See_Comment [Automated message] The 6690-2) system which [employer] nerated this result tra nsmitted reference range : 4.30 - 11.10 10*3/?L. The reference range was not used to interpr et this result as normal/abnormal . RBC (test code = See_Comment [Automated message] The 789-8) system which [employer] nerated this result tra nsmitted reference range : 3.93 - 5.25 10*6/?L. T he reference range was not used to interpr et this result as normal/abnormal . HGB (test code = 13.1 g/dL 11.6-15.0 718-7) HCT (test code = 41.0 % [...] MPV (test code = 10.5 fL 9.5-12.9 51353-1) RDW-CV (test code = 14.6 % 12.0-15.5 788-0) RDW-SD (test code = 43.4 fL 39.0-49.9 48842-7) NRBC x10^3 (test <0.01 See_Comment [Automated message] The code = 2848275465) system [facility] generated this result tra nsmitted reference range : 10*3/?L. The reference r dayana was not used to int erpret this result as normal/abnormal . NRBC/100 WBC (test See_Comment [Automat ed message] The code = 1599861837) system [facility] generated this result tra nsmitted reference range : 0.0 - 10.0 /100 WBCs. The reference range was not used to interpr et this result as normal/abnormal . IPF % (test code = 7622450030) [facility] HospitalCT ABDOMEN PELVIS W [id number] 21:14:58 Colonic diverticulosis with sigmoid haustral edema [...] reviewed this study and agree withthe above report.[facility] HospitalUrinalysis2021-02-28 20:07:00 Test Item Value Reference Range Interpretation Comments APPEARANCE (test code = Cloudy Clear A 6617106640) COLOR (test code = Shirlene Yellow A 5958808514) PH (test code = 4.8-8.0 8636304601) SP GRAVITY (test code = 1.003-1.030 0905577738) GLU U QUAL (test code = Normal Normal 2430474054) BLOOD (test code = Negative Negative 6233210427) KETONES (test code = Negative Negative 0621576590) PROTEIN (test code = 30 mg/dL Negative A 2887-8) UROBILIN (test code = Normal Normal 8316658940) BILIRUBIN (test code = Negative Negative 7432038912) NITRITE (test code = Negative Negative 7093575059) LEUK ULISES (test code = 75/uL Negative A 6484107165) RBC/HPF (test code = See_Comment H [Autom ated message] 2562505539) The system [employer] generated this result transmitted ref erence range: 0 - 3 HP F. The reference range was not used to int erpret this result as normal/abnormal . WBC/HPF (test code = See_Comment H [Autom ated message] 1105330003) The system [employer] generated this result transmitted ref erence range: 0 - 5 HP F. The reference range was not used to int erpret this result as normal/abnormal . BACTERIA (test code = Moderate Negative A 9091143772) MUCOUS (test code = Moderate Negative LPF A 4562005981) SQ EPITH (test code = HPF 4405759945) Lab Interpretation (test Abnormal code = 65539-2) [facility] [id number] 19:43:00 Test Item Value Reference Range Interpretation Comments TROPONIN I (test 0.002 ng/mL See_Comment [Automated code = 9406015891) message] The system which generated this result [...] ? Lab Interpretation Normal (test code = 71619-9) [facility] HospitalaPTT2021-02-28 19:40:00 Test Item Value Reference Range Interpretation Comments APTT Patient (test See_Comment [Automat ed code = 3173-2) message] The system which generated this result transmitted reference range : 23 - 38 Seconds . The reference range was not used to interpr et this result as normal/abnormal . KANU (test code = KANU) The [facility] patient population mean normal value for aPTT is 30 seconds. Lab Interpretation Normal (test code = 61677-3) [facility] HospitalProthrombin Time (PT) / [id number] 19:38:00 Test Item Value Reference Range Interpretation [...] tions. Lab Interpretation (test Normal code = 87077-4) [facility] HospitalBasi Metabolic Panel (NA, K, CL, CO2, GLUCOSE, BUN, CREATININE, CA)2020-11-14 19:32:00 Test Item Value Reference Range Interpretation Comments NA (test code = 136 mmol/L 135-145 9828672043) K (test code = 4.2 mmol/L 3.5-5 4673538277) CL (test code = 103 mmol/L 98-108 9421178592) CO2 TOTAL (test code = 25 mmol/L 23-31 3088668227) AGAP (test code = 2-16 7280400940) BUN (test code = 20 mg/dL 7-23 3471613641) GLUCOSE (test code = 148 mg/dL 70-110 H 7336703372) CREATININE (test code = 1.16 mg/dL 0.5-1.04 H 6861766553) CALCIUM (test code = 9.0 mg/dL 8.6-10.6 5528004573) eGFR Calculation mL/min/1.73m2 (Non-) (test code = 3951259640) eGFR Calculation mL/min/1.73m2 () (test code = 4350250703) KANU (test code = KANU) Association of [...] tests). Lab Interpretation Abnormal (test code = 73525-2) [facility] HospitalHepatic Function Panel (ALB, T.PRO, BILI T, BU/BC, ALT, AST, ALK PHOS)2020-11-14 19:32:00 Test Item Value Reference Range Interpretation Comments TOTAL BILI (test code = 9708070505) 0.6 mg/dL 0.1-1.1 BILI UNCON (test code = 4755568473) 0.5 mg/dL 0.1-1.1 BILI CONJ (test code = 2837487961) 0.0 mg/dL 0-0.3 T PROTEIN (test code = 6033971782) 6.9 g/dL 6.3-8.2 ALBUMIN (test code = 8176817978) 4.1 g/dL 3.5-5 ALK PHOS (test code = 6634402176) 69 U/L 34-122 ALTv (test code = 1742-6) 11 U/L 5-35 AST(SGOT) (test code = 7898032449) 19 U/L 13-40 Lab Interpretation (test code = Normal 45386-1) [facility] HospitalLipase [id number] 19:31:00 Test Item Value Reference Range Interpretation Comments LIPASE (test code = 4843499055) 42 U/L 0-220 Lab Interpretation (test code = Normal 90168-5) [facility] HospitalCOVID-19 (ID NOW RAPID TESTING)2020-11-14 19:31:00 Test Item Value Reference Range Interpretation Comments SARS-CoV-2 Rapid ID NOW Not Detected Not Detected (test code = 34354-8) KANU (test code = KANU) ID NOW COVID-19 Assay is an isothermal nucleic acid amplification test intended for the qualitative detection of nucleic acid from SARS-CoV-2 viral RNA in nasopharyngeal (COUNTER POCKET TRIMMER) specimens. It is used under Emergency Use [...] indicated. Lab Interpretation Normal (test code = 74372-4) [facility] HospitalCB with [id number] 19:16:00 Test Item Value Reference Range Interpretation [...] RDW-SD (test code = 41.3 fL 39-49.9 70501-9) RDW-CV (test code = 14.1 % 12-15.5 788-0) PLT (test code = See_Comment [Automated 777-3) message] The sy stem which generated this result transmitted reference range : 166 - 358 10*3/ ?L. The reference r dayana was not used to interpret this result as normal/abnormal . MPV (test code = 10.1 fL 9.5-12.9 23749-1) NRBC/100 WBC (test See_Comment [Automat ed code = 0506662840) message] The system which generated this result transmitted reference range : 0.0 - 10.0 /100 WBCs. The refer ence range was not u sed to interpret th is result as normal/abnormal . NRBC x10^3 (test code <0.01 See_Comment [Auto mated = 1716268086) message] The s ystem which generated this result transmitted reference range : 10*3/?L. The reference range was not used to interpret this result as normal/abnormal . GRAN MAT (NEUT) % 73.2 % (test code = 770-8) IMM GRAN % (test code 0.70 % = 7583778028) LYMPH % (test code = 18.1 % 736-9) MONO % (test code = 6.6 % 5905-5) EOS % (test code = 1.1 % 713-8) BASO % (test code = 0.3 % 706-2) GRAN MAT x10^3(ANC) 8.41 10*3/uL 1.88-7.09 H (test code = 3299996593) IMM GRAN x10^3 (test 0.08 10*3/uL 0-0.06 H code = 2872997276) LYMPH x10^3 (test code 2.08 10*3/uL 1.32-3.29 = 731-0) MONO x10^3 (test code 0.76 10*3/uL 0.33-0.92 = 742-7) EOS x10^3 (test code = 0.13 10*3/uL 0.03-0.39 711-2) BASO x10^3 (test code 0.04 10*3/uL 0.01-0.07 = 704-7) Lab Interpretation Abnormal (test code = 98269-8) [facility] HospitalDEXA AXIAL (HIP AND SPINE)2020-08-25 20:15:51 HISTORY: Osteoporosis [...] for each 1.5 SD below the mean. [facility], Gifty ResultsInft User - 08/25/2020 2:16 PM CSTHISTORY: [...] doubles for each 1.5 SD below the mean.[facility] HospitalXR HIPS 2 VW BILATERAL 2020-08-25 19:21:09HISTORY: Bilateral [...] dislocation in right hip or left hipjoint. [facility], Radiant Results Inft User - 08/25/2020 1:22 [...] or dislocation in right hip or left hipjoint.[facility] HospitalCOVID-19 (ID NOW RAPID TESTING)2020-06-11 20:18:00 Test Item Value Reference Range Interpretation Comments SARS-CoV-2 Rapid ID NOW Not Detected Not Detected (test code = 82081-1) KANU (test code = KANU) ID NOW COVID-19 Assay is an isothermal nucleic acid amplification test intended for the qualitative detection of nucleic acid from SARS-CoV-2 viral RNA in nasopharyngeal (COUNTER POCKET TRIMMER) specimens. It is used under Emergency Use [...] indicated. Lab Interpretation Normal (test code = 41517-0) [facility] HospitalCOVID-19 (ID NOW RAPID TESTING)2020-06-03 22:06:00 Test Item Value Reference Range Interpretation Comments SARS-CoV-2 Rapid ID NOW Not Detected Not Detected (test code = 19088-1) KANU (test code = KANU) ID NOW COVID-19 Assay is an isothermal nucleic acid amplification test intended for the qualitative detection of nucleic acid from SARS-CoV-2 viral RNA in nasopharyngeal (COUNTER POCKET TRIMMER) specimens. It is used under Emergency Use [...] indicated. Lab Interpretation Normal (test code = 89445-4) [facility] HospitalTroponin [id number] 21:37:00 Test Item Value Reference Range Interpretation Comments TROPONIN I (test 0.002 ng/mL See_Comment [Automated code = 2686290061) message] The system which generated this result [...] ? Lab Interpretation Normal (test code = 24996-0) [facility] HospitalN-TERMINAL [id number] 21:34:00 Test Item Value Reference Range Interpretation Comments NT-proBNP (test code 62 pg/mL See_Comment [Autom ated = 7259015509) message] The system which generated this result transmitted reference range : <=450. The reference range was not used to interpret this result as normal/abnormal . KANU (test code = KANU) Biotin has been reported to cause a negative bias, interpret results relative to patient's use of biotin. Lab Interpretation Normal (test code = 42111-5) [facility] [facility]bin [facility] (PT[facility] / [id number] 21:30:00 Test Item Value Reference Range Interpretation [...] tions. Lab Interpretation (test Normal code = 48304-6) [facility]. METABOLIC PANEL (00282)2020-06-03 21:25:00 Test Item Value Reference Range Interpretation Comments NA (test code = 139 mmol/L 135-145 3580467545) K (test code = 4.1 mmol/L 3.5-5 6700110636) CL (test code = 101 mmol/L 98-108 3967504495) CO2 TOTAL (test code = 24 mmol/L 23-31 5228396926) AGAP (test code = 2-16 0638629448) BUN (test code = 22 mg/dL 7-23 8376529664) GLUCOSE (test code = 118 mg/dL 70-110 H 8998561999) CREATININE (test code = 1.22 mg/dL 0.5-1.04 H 2137317693) TOTAL BILI (test code = 0.4 mg/dL 0.1-1.4 5271878036) CALCIUM (test code = 10.2 mg/dL 8.6-10.6 2702596709) T PROTEIN (test code = 7.7 g/dL 6.3-8.2 3134813284) ALBUMIN (test code = 4.5 g/dL 3.5-5 7181443301) ALK PHOS (test code = 61 U/L 34-122 9169814343) ALTv (test code = 23 U/L 5-35 1742-6) AST(SGOT) (test code = 27 U/L 13-40 3041544969) eGFR Calculation mL/min/1.73m2 (Non-) (test code = 8649617941) eGFR Calculation mL/min/1.73m2 () (test code = 9910713743) KANU (test code = KANU) Association of [...] tests). Lab Interpretation Abnormal (test code = 97389-1) [facility] 1 VW [id number] 21:16:49 Mild cardiomegaly. Short sliding hiatal hernia. No detectable radiographic findings to suggest COVID-19 pneumonia. Disclaimer: Generally, the findings on chest imaging in COVID-19 are notspecific, and overlap with other infections, including influenza, H1N1,SARS and MERS.According to the Centers forDisease Control (CDC) and recent statement ofthe [employer], viral testing remains the [...] Disease Control (CDC) and recent statement ofthe [employer], viral testing remains the only specificmethod of diagnosis. Confirmation with the viral test is required, even ifradiologic findings are suggestive of COVID-[address]. Preliminary Report Dictated by Resident: Saud Chatterjee MD., have reviewed this study and agree with theabove report.[facility] with [id number] 21:09:00 Test Item Value Reference Range Interpretation Comments WBC (test code = See_Comment [Automated message] 3590-2) The system [employer] generated this result transmitted ref erence range: 4.30 - 1 1.10 10*3/?L. The re ference range was not u sed to interpret this result as normal/abnor mal. RBC (test code = See_Comment [Automated message] 789-8) The system [employer] generated this result transmitted ref erence range: [...] RDW-SD (test code 41.1 fL 39-49.9 = 31667-0) RDW-CV (test code 13.9 % 12-15.5 = 788-0) PLT (test code = See_Comment [Automated message] 777-3) The system [employer] generated this result transmitted ref erence range: 166 - 35 8 10*3/?L. The re ference range was not u sed to interpret this result as normal/abnor mal. MPV (test code = 10.3 fL 9.5-12.9 00082-7) NRBC/100 WBC (test See_Comment [Automat ed message] code = 4937329046) The syste m which generated this result transmitted ref erence range: 0.0 - 10 .0 /100 WBCs. The refer ence range was not u sed to interpret this result as normal/abnor mal. NRBC x10^3 (test <0.01 See_Comment [Automated message] code = 0928381167) The syste m which generated this result transmitted ref erence range: 10*3/?L. The reference range was not used to interpr et this result as normal/abnormal . GRAN MAT (NEUT) % 52.1 % (test code = 770-8) IMM GRAN % (test 0.40 % code = 9876481568) LYMPH % (test code 37.9 % = 736-9) MONO % (test code 6.8 % = 5905-5) EOS % (test code = 2.4 % 713-8) BASO % (test code 0.4 % = 706-2) GRAN MAT 3.66 10*3/uL 1.88-7.09 x10^3(ANC) (test code = 3391744483) IMM GRAN x10^3 0.03 10*3/uL 0-0.06 (test code = 8203621726) LYMPH x10^3 (test 2.67 10*3/uL 1.32-3.29 code = 731-0) MONO x10^3 (test 0.48 10*3/uL 0.33-0.92 code = 742-7) EOS x10^3 (test 0.17 10*3/uL 0.03-0.39 code = 711-2) BASO x10^3 (test 0.03 10*3/uL 0.01-0.07 code = 704-7) [facility] GLUCOSE (AUTOMATED)2019-12-09 21:03:00 Test Item Value Reference Range Interpretation Comments POCT GLU (test code = 1600735984) 184 mg/dL 70-110 H Lab Interpretation (test code = Abnormal 48916-6) [facility] GLUCOSE (AUTOMATED)2019-12-09 16:38:00 Test Item Value Reference Range Interpretation Comments POCT GLU (test code = 1439445596) 157 mg/dL 70-110 H Lab Interpretation (test code = Abnormal 05357-6) [facility] ONLY CORONAVIRUS COVID-19 PCR GNL 2019-12-09 15:52:00 Test Item Value Reference Range Interpretation Comments Coronavirus COVID-19 Not Detected Not Detected (test code = 0245639339) KANU (test code = KANU) Not Detected: A negative result does not preclude COVID-19 infection and should not be used as the sole basis for treatment or other patient management decisions. Negative results must be combined with clinical observations, patient history, and epidemiological information. Presumptive Positive: Specimen will be sent to [facility] for confirmation testing. Inconclusive: Specimen will be sent to [facility] for additional testing. Invalid: Please collect a new specimen for repeat patient testing. Disclaimer:This test was developed and its performance characteristics determined by [facility]. It has not been cleared or approved [...] Presumptive Positive: Specimen will be sent to [facility] for confirmation testing. Inconclusive: Specimen will be sent to [facility] for additional testing. Invalid: Please collect a new specimen for repeat patient testing. Disclaimer:This test was developed and its performance characteristics determined by [facility]. It has not been cleared or [...] testing. Lab Interpretation Normal (test code = 26078-8) [facility] (AUTOMATED)2019-12-09 12:32:00 Test Item Value Reference Range Interpretation Comments POCT GLU (test code = 0663980260) 157 mg/dL 70-110 H Lab Interpretation (test code = Abnormal 49266-1) [facility] HospitalTHYROID STIMULATING [id number] 12:24:00 Test Item Value Reference Range Interpretation Comments TSH (test code = See_Comment H [Automated message] 5405280229) The system [employer] generated this result transmitted ref erence range: 0.45 - 4 .70 mIU/L. The refe rence range was not u sed to interpret this result as normal/abnor mal. Lab Interpretation (test Abnormal code = 04010-9) [facility] (for use with Heparin Practice Guideline). Note: [...] . KANU (test code = KANU) The [facility] patient population mean normal value for aPTT is 30 seconds. Lab Interpretation Abnormal (test code = 52625-3) [facility] (NA, K, CL, CO2, GLUCOSE, BUN, CREATININE, CA)2019-12-09 11:53:00 Test Item Value Reference Range Interpretation Comments NA (test code = 136 mmol/L 135-145 5643368186) K (test code = 4.0 mmol/L 3.5-5 1625869620) CL (test code = 100 mmol/L 98-108 7439018284) CO2 TOTAL (test code = 22 mmol/L 23-31 L 9916516492) AGAP (test code = 2-16 3318593507) BUN (test code = 15 mg/dL 7-23 2297758352) GLUCOSE (test code = 155 mg/dL 70-110 H 4055858878) CREATININE (test code = 1.23 mg/dL 0.5-1.04 H 5868752270) CALCIUM (test code = 9.8 mg/dL 8.6-10.6 3640862999) eGFR Calculation mL/min/1.73m2 (Non-) (test code = 3292886997) eGFR Calculation mL/min/1.73m2 () (test code = 7764469673) KANU (test code = KANU) Association of [...] tests). Lab Interpretation Abnormal (test code = 67733-9) [facility] WITH [id number] 11:27:00 Test Item Value Reference Range Interpretation [...] RDW-SD (test code = 42.8 fL 39-49.9 88852-6) RDW-CV (test code = 14.6 % 12-15.5 788-0) PLT (test code = See_Comment [Automated 777-3) message] The sy stem which generated this result transmitted reference range : 166 - 358 10*3/ ?L. The reference r dayana was not used to interpret this result as normal/abnormal . MPV (test code = 10.2 fL 9.5-12.9 21692-3) NRBC/100 WBC (test See_Comment [Automat ed code = 9103108649) message] The system which generated this result transmitted reference range : 0.0 - 10.0 /100 WBCs. The refer ence range was not u sed to interpret th is result as normal/abnormal . NRBC x10^3 (test code <0.01 See_Comment [Auto mated = 0022548495) message] The s ystem which generated this result transmitted reference range : 10*3/?L. The reference range was not used to interpret this result as normal/abnormal . GRAN MAT (NEUT) % 51.0 % (test code = 770-8) IMM GRAN % (test code 0.50 % = 4244330829) LYMPH % (test code = 36.8 % 736-9) MONO % (test code = 8.2 % 5905-5) EOS % (test code = 3.1 % 713-8) BASO % (test code = 0.4 % 706-2) GRAN MAT x10^3(ANC) 4.10 10*3/uL 1.88-7.09 (test code = 3338950661) IMM GRAN x10^3 (test 0.04 10*3/uL 0-0.06 code = 6767223806) LYMPH x10^3 (test code 2.96 10*3/uL 1.32-3.29 = 731-0) MONO x10^3 (test code 0.66 10*3/uL 0.33-0.92 = 742-7) EOS x10^3 (test code = 0.25 10*3/uL 0.03-0.39 711-2) BASO x10^3 (test code 0.03 10*3/uL 0.01-0.07 = 704-7) Lab Interpretation Abnormal (test code = 93695-2) [facility] GLUCOSE (AUTOMATED)2019-12-09 00:28:00 Test Item Value Reference Range Interpretation Comments POCT GLU (test code = 7739437297) 208 mg/dL 70-110 H Lab Interpretation (test code = Abnormal 47614-9) [facility]INE [id number] 21:28:00 Test Item Value Reference Range Interpretation Comments URINE CULTURE (test No aerobic organisms code = 630-4) isolated [facility] GLUCOSE (AUTOMATED)2019-12-08 21:15:00 Test Item Value Reference Range Interpretation Comments POCT GLU (test code = 5052387881) 157 mg/dL 70-110 H Lab Interpretation (test code = Abnormal 56427-0) [facility]TT2020-03-23 20:10:00 Test Item Value Reference Range Interpretation Comments APTT Patient (test See_Comment H [Automat ed code = 3173-2) message] The system which generated this result transmitted reference range : 23 - 38 Seconds . The reference range was not used to interpr et this result as normal/abnormal . KANU (test code = KANU) The [facility] patient population mean normal value for aPTT is 30 seconds. Lab Interpretation Abnormal (test code = 71716-5) [facility] GLUCOSE (AUTOMATED)2019-12-08 16:46:00 Test Item Value Reference Range Interpretation Comments POCT GLU (test code = 5646309780) 172 mg/dL 70-110 H Lab Interpretation (test code = Abnormal 45392-4) [facility] GLUCOSE (AUTOMATED)2019-12-08 12:20:00 Test Item Value Reference Range Interpretation Comments POCT GLU (test code = 4024010207) 159 mg/dL 70-110 H Lab Interpretation (test code = Abnormal 72926-0) [facility] (for use with Heparin Practice Guideline). Note: [...] . KANU (test code = KANU) The [facility] patient population mean normal value for aPTT is 30 seconds. Lab Interpretation Abnormal (test code = 77270-2) [facility] WITH [id number] 07:05:00 Test Item Value Reference Range Interpretation Comments WBC (test code = See_Comment [Automated 2490-2) message] The sy stem which generated this result transmitted reference range : 4.30 - 11.10 10*3/?L. The reference range was not used to interpret this result as normal/abnormal . RBC (test code = See_Comment H [Automated 709-8) message] The sy stem which generated this [...] RDW-SD (test code = 41.9 fL 39-49.9 38834-3) RDW-CV (test code = 14.7 % 12-15.5 788-0) PLT (test code = See_Comment [Automated 777-3) message] The sy stem which generated this result transmitted reference range : 166 - 358 10*3/ ?L. The reference r dayana was not used to interpret this result as normal/abnormal . MPV (test code = 11.1 fL 9.5-12.9 59219-1) NRBC/100 WBC (test See_Comment [Automat ed code = 6863154379) message] The system which generated this result transmitted reference range : 0.0 - 10.0 /100 WBCs. The refer ence range was not u sed to interpret th is result as normal/abnormal . NRBC x10^3 (test code <0.01 See_Comment [Auto mated = 6544042573) message] The s ystem which generated this result transmitted reference range : 10*3/?L. The reference range was not used to interpret this result as normal/abnormal . GRAN MAT (NEUT) % 61.6 % (test code = 770-8) IMM GRAN % (test code 0.40 % = 5301048635) LYMPH % (test code = 28.3 % 736-9) MONO % (test code = 8.8 % 5905-5) EOS % (test code = 0.7 % 713-8) BASO % (test code = 0.2 % 706-2) GRAN MAT x10^3(ANC) 6.19 10*3/uL 1.88-7.09 (test code = 2797862224) IMM GRAN x10^3 (test 0.04 10*3/uL 0-0.06 code = 4003233153) LYMPH x10^3 (test code 2.85 10*3/uL 1.32-3.29 = 731-0) MONO x10^3 (test code 0.89 10*3/uL 0.33-0.92 = 742-7) EOS x10^3 (test code = 0.07 10*3/uL 0.03-0.39 711-2) BASO x10^3 (test code <0.03 0.01-0.07 = 704-7) Lab Interpretation Abnormal (test code = 48848-0) [facility] GLUCOSE (AUTOMATED)2019-12-08 01:01:00 Test Item Value Reference Range Interpretation Comments POCT GLU (test code = 150 mg/dL 70-110 H Notifi ed Provider 9978229331) Lab Interpretation (test Abnormal code = 47648-6) [facility] (for use with Heparin Practice Guideline). Note: [...] . KANU (test code = KANU) The [facility] patient population mean normal value for aPTT is 30 seconds. Lab Interpretation Abnormal (test code = 77724-9) [facility] GLUCOSE (AUTOMATED)2019-12-07 21:50:00 Test Item Value Reference Range Interpretation Comments POCT GLU (test code = 2230235949) 152 mg/dL 70-110 H Lab Interpretation (test code = Abnormal 22614-4) [facility] GLUCOSE (AUTOMATED)2019-12-07 16:50:00 Test Item Value Reference Range Interpretation Comments POCT GLU (test code = 8550359903) 145 mg/dL 70-110 H Lab Interpretation (test code = Abnormal 97979-4) [facility] HospitalGlycosylated Hemoglobin (A1C)2019-12-07 14:03:00 Test Item Value Reference [...] Indicated Lab Interpretation Abnormal (test code = 63185-1) [facility]POW[facility] GLUCOSE (AUTOMATED)2019-12-07 13:38:00 Test Item Value Reference Range Interpretation Comments POCT GLU (test code = 0085011080) 134 mg/dL 70-110 H Lab Interpretation (test code = Abnormal 01305-1) [facility] (for use with Heparin Practice Guideline). Note: [...] . KANU (test code = KANU) The [facility] patient population mean normal value for aPTT is 30 seconds. Lab Interpretation Abnormal (test code = 15851-2) [facility] CHEST PULMONARY [id number] 04:05:36 Right upper lobe segmental pulmonary emboli. [...] PM.Preliminary Report Dictated by Resident: Kristy Yao, Terrance Eng MD., have reviewed this study and agree with theabove report.[facility] HospitalProthrombin Time (PT) / INR 2019-12-07 04:05:00 Test [...] tions. Lab Interpretation (test Normal code = 21787-8) [facility]2020-03-22 04:04:00 Test Item Value Reference Range Interpretation Comments APTT Patient (test See_Comment [Automat ed code = 3173-2) message] The system which generated this result transmitted reference range : 23 - 38 Seconds . The reference range was not used to interpr et this result as normal/abnormal . KANU (test code = KANU) The [facility] patient population mean normal value for aPTT is 30 seconds. Lab Interpretation Normal (test code = 70053-2) [facility] HospitalUrinalysis2020-03-22 03:34:00 Test Item Value Reference Range Interpretation Comments APPEARANCE (test code = Hazy Clear A 3304523747) COLOR (test code = Yellow Yellow 7000284255) PH (test code = 4.8-8.0 9555328678) SP GRAVITY (test code = 1.003-1.030 3009306623) GLU U QUAL (test code = Normal Normal 4678588805) BLOOD (test code = Negative Negative INTERFERE NCE FROM 9489634311) ASCORBIC ACID M AY CAUSE FALSE NEG ATIVE RESULT KETONES (test code = 5 mg/dL Negative A 7937825491) PROTEIN (test code = 30 mg/dL Negative A 2887-8) UROBILIN (test code = Normal Normal 0601894671) BILIRUBIN (test code = Negative Negative 5108426819) NITRITE (test code = Negative Negative 6952849124) LEUK ULISES (test code = 250/uL Negative A 9777702263) RBC/HPF (test code = See_Comment H [Autom ated message] 2528118901) The system [employer] generated this result transmitted ref erence range: 0 - 3 HP F. The reference range was not used to int erpret this result as normal/abnormal . WBC/HPF (test code = See_Comment H [Autom ated message] 8280899506) The system [employer] generated this result transmitted ref erence range: 0 - 5 HP F. The reference range was not used to int erpret this result as normal/abnormal . BACTERIA (test code = Few Negative A 0868945395) MUCOUS (test code = Slight Negative LPF A 0225645319) SQ EPITH (test code = HPF 9924297930) HYAL CAST (test code = See_Comment H [Aut omated message] 8095874217) The system [employer] generated this result transmitted ref erence range: <=2 LPF. The reference range was not used to int erpret this result as normal/abnormal . TRANS EPI (test code = See_Comment H [Aut omated message] 3091384966) The system [employer] generated this result transmitted ref erence range: <=1 HPF. The reference range was not used to int erpret this result as normal/abnormal . GLORIA EPITH (test code = See_Comment H [Aut omated message] 4904620113) The system [employer] generated this result transmitted ref erence range: <=1 HPF. The reference range was not used to int erpret this result as normal/abnormal . Lab Interpretation (test Abnormal code = 66743-6) [facility] 2 [id number] 02:52:25 No acute cardiopulmonary abnormality. Preliminary Report [...] reviewed this study and agree with theabove report.[facility] HospitalYennyxavi [id number] 02:31:00 Test Item Value Reference Range Interpretation Comments TROPONIN I (test 0.008 ng/mL See_Comment [Automated code = 4295291213) message] The system which generated this result [...] ? Lab Interpretation Normal (test code = 86794-1) [facility] Metabolic Panel (NA, K, CL, CO2, GLUCOSE, BUN, CREATININE, CA)2019-12-07 02:19:00 Test Item Value Reference Range Interpretation Comments NA (test code = 141 mmol/L 135-145 6427311349) K (test code = 4.0 mmol/L 3.5-5 4708341117) CL (test code = 102 mmol/L 98-108 4269792248) CO2 TOTAL (test code = 22 mmol/L 23-31 L 8301612562) AGAP (test code = 2-16 H 5305244592) BUN (test code = 17 mg/dL 7-23 8103272618) GLUCOSE (test code = 109 mg/dL 70-110 6273882248) CREATININE (test code = 1.18 mg/dL 0.5-1.04 H 6620281029) CALCIUM (test code = 10.2 mg/dL 8.6-10.6 0278813295) eGFR Calculation mL/min/1.73m2 (Non-) (test code = 8216566096) eGFR Calculation mL/min/1.73m2 () (test code = 7733529250) KANU (test code = KANU) Association of [...] tests). Lab Interpretation Abnormal (test code = 14457-4) [facility] HospitalHepatic Function Panel (ALB, T.PRO, BILI T, BU/BC, ALT, AST, ALK PHOS)2019-12-07 02:19:00 Test Item Value Reference Range Interpretation Comments TOTAL BILI (test code = 8687529905) 0.4 mg/dL 0.1-1.1 BILI UNCON (test code = 6756462406) 0.3 mg/dL 0.1-1.1 BILI CONJ (test code = 1969672627) 0.0 mg/dL 0-0.3 T PROTEIN (test code = 7645790124) 8.2 g/dL 6.3-8.2 ALBUMIN (test code = 1354729894) 4.9 g/dL 3.5-5 ALK PHOS (test code = 5124488551) 70 U/L 34-122 ALTv (test code = 1742-6) 27 U/L 5-35 AST(SGOT) (test code = 0480891233) 35 U/L 13-40 Lab Interpretation (test code = Normal 49144-1) [facility] HospitalLipase [id number] 02:19:00 Test Item Value Reference Range Interpretation Comments LIPASE (test code = 4570835431) 95 U/L 0-220 Lab Interpretation (test code = Normal 75288-1) [facility] HospitalADC,CLC OR LCC ONLY - INFLUENZA A & B DIRECT [id number] 02:17:00 Test Item Value Reference Range Interpretation Comments Influenza A (test code = 78429-1) Negative Negative Influenza B (test code = 21088-0) Negative Negative Lab Interpretation (test code = Normal 56098-5) [facility] HospitalCBC WITH [id number] 01:58:00 Test Item Value Reference Range Interpretation Comments WBC (test code = See_Comment [Automated message] 6690-2) The system [employer] generated this result transmitted ref erence range: 4.30 - 1 1.10 10*3/?L. The re ference range was not u sed to interpret this result as normal/abnor mal. RBC (test code = See_Comment [Automated message] 789-8) The system [employer] generated this result transmitted ref erence range: [...] RDW-SD (test code 41.4 fL 39-49.9 = 94641-2) RDW-CV (test code 13.9 % 12-15.5 = 788-0) PLT (test code = See_Comment [Automated message] 777-3) The system [employer] generated this result transmitted ref erence range: 166 - 35 8 10*3/?L. The re ference range was not u sed to interpret this result as normal/abnor mal. MPV (test code = 10.1 fL 9.5-12.9 30571-1) NRBC/100 WBC (test See_Comment [Automat ed message] code = 8521573847) The syste m which generated this result transmitted ref erence range: 0.0 - 10 .0 /100 WBCs. The refer ence range was not u sed to interpret this result as normal/abnor mal. NRBC x10^3 (test <0.01 See_Comment [Automated message] code = 9728865015) The syste m which generated this result transmitted ref erence range: 10*3/?L. The reference range was not used to interpr et this result as normal/abnormal . GRAN MAT (NEUT) % 53.5 % (test code = 770-8) IMM GRAN % (test 0.40 % code = 9684919361) LYMPH % (test code 35.7 % = 736-9) MONO % (test code 7.5 % = 5905-5) EOS % (test code = 2.6 % 713-8) BASO % (test code 0.3 % = 706-2) GRAN MAT 3.87 10*3/uL 1.88-7.09 x10^3(ANC) (test code = 4730613725) IMM GRAN x10^3 0.03 10*3/uL 0-0.06 (test code = 9825060549) LYMPH x10^3 (test 2.58 10*3/uL 1.32-3.29 code = 731-0) MONO x10^3 (test 0.54 10*3/uL 0.33-0.92 code = 742-7) EOS x10^3 (test 0.19 10*3/uL 0.03-0.39 code = 711-2) BASO x10^3 (test <0.03 0.01-0.07 code = 704-7) [facility]XR [facility]ST 2 [id number] 01:30:47 No acute cardiopulmonary abnormality. Preliminary Report [...] reviewed this study and agree with the abovereport.[facility] ADC,CLC OR LCC ONLY - INFLUENZA A & B DIRECT [id number] 01:10:00 Test Item Value Reference Range Interpretation Comments Influenza A (test code = 70136-7) Negative Negative Influenza B (test code = 37745-6) Negative Negative Lab Interpretation (test code = Normal 36585-0) [facility] HospitalPOCT FLU A AND B (MOLECULAR)2019-11-09 01:21:00 Test Item Value Reference Range Interpretation Comments POCT INFLUENZA A (test neg Negative - code = 3840) Negative POCT INFLUENZA B (test neg Negative - code = 3841) Negative KANU (test code = KANU) accurate development and interpretation of all internal controls Lab Interpretation Normal (test code = 32168-2) [facility] HospitalMICROALBUMIN [id number] 16:21:00 Test Item Value Reference Range Interpretation Comments CREAT U (test 230.5 mg/dL code = 9718802251) MICROALB U 23 ug/mL 0-45 (test code = 39743-5) MICROAL/CR See_Comment [Automated (test code = message] [employer] 9318-7) system which generated this result transmitted reference range : 0 - 30 mg/g of creatinine. The reference range was not used to interpret this result as normal/abnormal . KANU (test code Normal: <30 mg/g = KANU) creatinineMicroalbuminur ia: 30 - 299 mg/g creatinineClinical albuminuria: > 300 mg/g creatinine [facility] HospitalMICROALBUMIN [id number] 16:21:00 Test Item Value Reference Range Interpretation Comments CREAT U (test 230.5 mg/dL code = 2556594112) MICROALB U 23 ug/mL 0-45 (test code = 19868-4) MICROAL/CR See_Comment [Automated (test code = message] [employer] 9318-7) system which generated this result transmitted reference range : 0 - 30 mg/g of creatinine. The reference range was not used to interpret this result as normal/abnormal . KANU (test code Normal: <30 mg/g = KANU) creatinineMicroalbuminur ia: 30 - 299 mg/g creatinineClinical albuminuria: > 300 mg/g creatinine [facility] [id number] 19:20:00 Test Item Value Reference Range Interpretation Comments TSH (test code = See_Comment [Automated message] [id number]) The system [employer] generated this result transmitted ref erence range: 0.45 - 4 .70 mIU/L. The refe rence range was not u sed to interpret this result as normal/abnor mal. Lab Interpretation (test Normal code = 86002-9) [facility] [id number] 19:20:00 Test Item Value Reference Range Interpretation Comments TSH (test code = See_Comment [Automated message] [id number]) The system [employer] generated this result transmitted ref erence range: 0.45 - 4 .70 mIU/L. The refe rence range was not u sed to interpret this result as normal/abnor mal. Lab Interpretation (test Normal code = 11479-0) [facility] (08801)(TOTAL CHOLESTEROL, TRIGLYCERIDES, HDL)2019-10-30 18:53:00 Test Item Value Reference Range Interpretation Comments CHOL (test code = 250 mg/dL 120-200 H 1827949915) HDL (test code = 46 mg/dL >50 L 6213049680) HDLC RATIO (test code = See_Comment H [Au tomated message] 2796731603) The system [employer] generated this result transmit cesar reference range : <=4.5. The refe rence range was not u sed to interpret th is result as normal/abnormal . TRIG (test code = 162 mg/dL 30-170 7074891084) LDL CHOL (test code = 172 mg/dL See_Comment H [Auto mated message] 86706-0) The system [employer] generated this result transmit cesar reference range : <=160. The refe rence range was not u sed to interpret th is result as normal/abnormal . VLDL (test code = 32 mg/dL 5-60 2413107183) Lab Interpretation (test Abnormal code = 08521-2) [facility] (02040)(TOTAL CHOLESTEROL, TRIGLYCERIDES, HDL)2019-10-30 18:53:00 Test Item Value Reference Range Interpretation Comments CHOL (test code = 250 mg/dL 120-200 H 4927557554) HDL (test code = 46 mg/dL >50 L 1280598540) HDLC RATIO (test code = See_Comment H [Au tomated message] 1705692737) The system [employer] generated this result transmit cesar reference range : <=4.5. The refe rence range was not u sed to interpret th is result as normal/abnormal . TRIG (test code = 162 mg/dL 30-170 5850330483) LDL CHOL (test code = 172 mg/dL See_Comment H [Auto mated message] 26428-2) The system [employer] generated this result transmit cesar reference range : <=160. The refe rence range was not u sed to interpret th is result as normal/abnormal . VLDL (test code = 32 mg/dL 5-60 8245972894) Lab Interpretation (test Abnormal code = 32021-9) [facility]. METABOLIC PANEL (52953)2019-10-30 18:52:00 Test Item Value Reference Range Interpretation Comments NA (test code = 140 mmol/L 135-145 3997702957) K (test code = 4.8 mmol/L 3.5-5 2296883920) CL (test code = 102 mmol/L 98-108 6229938079) CO2 TOTAL (test code = 28 mmol/L 23-31 9513873949) AGAP (test code = 2-16 4912118456) BUN (test code = 28 mg/dL 7-23 H 0826861657) GLUCOSE (test code = 99 mg/dL 70-110 2068928835) CREATININE (test code = 1.56 mg/dL 0.5-1.04 H 4614429878) TOTAL BILI (test code = 0.5 mg/dL 0.1-1.9 3659173174) CALCIUM (test code = 10.3 mg/dL 8.6-10.6 0035199208) T PROTEIN (test code = 7.1 g/dL 6.3-8.2 1724233219) ALBUMIN (test code = 4.5 g/dL 3.5-5 5900135974) ALK PHOS (test code = 57 U/L 34-122 6526386387) ALTv (test code = 19 U/L 35 1742-6) AST(SGOT) (test code = 23 U/L 13-40 3576003914) eGFR Calculation mL/min/1.73m2 (Non-) (test code = 1632767902) eGFR Calculation mL/min/1.73m2 () (test code = 2464427637) KANU (test code = KANU) Association of [...] tests). Lab Interpretation Abnormal (test code = 06128-7) [facility]. METABOLIC PANEL (24083)2019-10-30 18:52:00 Test Item Value Reference Range Interpretation Comments NA (test code = 140 mmol/L 135-145 9252203525) K (test code = 4.8 mmol/L 3.5-5 2488990476) CL (test code = 102 mmol/L 98-108 5301767786) CO2 TOTAL (test code = 28 mmol/L 23-31 9741921038) AGAP (test code = 2-16 9002888707) BUN (test code = 28 mg/dL 7-23 H 4483535955) GLUCOSE (test code = 99 mg/dL 70-110 7276359666) CREATININE (test code = 1.56 mg/dL 0.5-1.04 H 6775502783) TOTAL BILI (test code = 0.5 mg/dL 0.1-1.6 1614173692) CALCIUM (test code = 10.3 mg/dL 8.6-10.6 2694541200) T PROTEIN (test code = 7.1 g/dL 6.3-8.2 8445372452) ALBUMIN (test code = 4.5 g/dL 3.5-5 3517521868) ALK PHOS (test code = 57 U/L 34-122 2797011815) ALTv (test code = 19 U/L 5-35 1742-6) AST(SGOT) (test code = 23 U/L 13-40 0169687890) eGFR Calculation mL/min/1.73m2 (Non-) (test code = 4132657297) eGFR Calculation mL/min/1.73m2 () (test code = 2520287700) KANU (test code = KANU) Association of [...] tests). Lab Interpretation Abnormal (test code = 28970-8) [facility]OS[facility]ATED [facility]EMOGLOBIN (A1C)2019-10-30 18:34:00 Test Item Value Reference [...] Indicated Lab Interpretation Abnormal (test code = 18018-5) [facility] (A1C)2019-10-30 18:34:00 Test Item Value Reference [...] Indicated Lab Interpretation Abnormal (test code = 56233-0) [facility] WITH [id number] 18:08:00 Test Item Value Reference Range Interpretation Comments WBC (test code = See_Comment [Automated message] 6690-2) The system [employer] generated this result transmitted ref erence range: 4.30 - 1 1.10 10*3/?L. The re ference range was not u sed to interpret this result as normal/abnor mal. RBC (test code = See_Comment [Automated message] 229-8) The system [employer] generated this result transmitted ref erence range: [...] RDW-SD (test code 41.0 fL 39-49.9 = 41660-1) RDW-CV (test code 13.3 % 12-15.5 = 788-0) PLT (test code = See_Comment [Automated message] 777-3) The system [employer] generated this result transmitted ref erence range: 166 - 35 8 10*3/?L. The re ference range was not u sed to interpret this result as normal/abnor mal. MPV (test code = 10.5 fL 9.5-12.9 29132-2) NRBC/100 WBC (test See_Comment [Automat ed message] code = 6231923500) The syste [employer] which generated this result transmitted ref erence range: 0.0 - 10 .0 /100 WBCs. The refer ence range was not u sed to interpret this result as normal/abnor mal. NRBC x10^3 (test <0.01 See_Comment [Automated message] code = 7812269475) The syste m which generated this result transmitted ref erence range: 10*3/?L. The reference range was not used to interpr et this result as normal/abnormal . GRAN MAT (NEUT) % 53.9 % (test code = 770-8) IMM GRAN % (test 0.50 % code = 7291750331) LYMPH % (test code 35.7 % = 736-9) MONO % (test code 6.5 % = 5905-5) EOS % (test code = 2.9 % 713-8) BASO % (test code 0.5 % = 706-2) GRAN MAT 3.58 10*3/uL 1.88-7.09 x10^3(ANC) (test code = 3030742334) IMM GRAN x10^3 0.03 10*3/uL 0-0.06 (test code = 1298500582) LYMPH x10^3 (test 2.37 10*3/uL 1.32-3.29 code = 731-0) MONO x10^3 (test 0.43 10*3/uL 0.33-0.92 code = 742-7) EOS x10^3 (test 0.19 10*3/uL 0.03-0.39 code = 711-2) BASO x10^3 (test 0.03 10*3/uL 0.01-0.07 code = 704-7) [facility] WITH [id number] 18:08:00 Test Item Value Reference Range Interpretation Comments WBC (test code = See_Comment [Automated message] 6690-2) The system [employer] generated this result transmitted ref erence range: 4.30 - 1 1.10 10*3/?L. The re ference range was not u sed to interpret this result as normal/abnor mal. RBC (test code = See_Comment [Automated message] 789-8) The system [employer] generated this result transmitted ref erence range: [...] RDW-SD (test code 41.0 fL 39-49.9 = 28981-3) RDW-CV (test code 13.3 % 12-15.5 = 788-0) PLT (test code = See_Comment [Automated message] 777-3) The system whic h generated this result transmitted ref erence range: 166 - 35 8 10*3/?L. The re ference range was not u sed to interpret this result as normal/abnor mal. MPV (test code = 10.5 fL 9.5-12.9 34175-6) NRBC/100 WBC (test See_Comment [Automat ed message] code = 3796276789) The syste m which generated this result transmitted ref erence range: 0.0 - 10 .0 /100 WBCs. The refer ence range was not u sed to interpret this result as normal/abnor mal. NRBC x10^3 (test <0.01 See_Comment [Automated message] code = 5245419433) The syste m which generated this result transmitted ref erence range: 10*3/?L. The reference range was not used to interpr et this result as normal/abnormal . GRAN MAT (NEUT) % 53.9 % (test code = 770-8) IMM GRAN % (test 0.50 % code = 8708591176) LYMPH % (test code 35.7 % = 736-9) MONO % (test code 6.5 % = 5905-5) EOS % (test code = 2.9 % 713-8) BASO % (test code 0.5 % = 706-2) GRAN MAT 3.58 10*3/uL 1.88-7.09 x10^3(ANC) (test code = 5652398048) IMM GRAN x10^3 0.03 10*3/uL 0-0.06 (test code = 1422895321) LYMPH x10^3 (test 2.37 10*3/uL 1.32-3.29 code = 731-0) MONO x10^3 (test 0.43 10*3/uL 0.33-0.92 code = 742-7) EOS x10^3 (test 0.19 10*3/uL 0.03-0.39 code = 711-2) BASO x10^3 (test 0.03 10*3/uL 0.01-0.07 code = 704-7) [facility] [id number] 01:01:19 No acute osseous abnormality. Multilevel degenerative [...] reviewed this study and agree with the abovereport.[facility] 3 [id number] 01:01:19 No acute osseous abnormality. Multilevel degenerative [...] reviewed this study and agree with the abovereport.[facility]"
[2021-12-06] MEDS ORDERED: ONDANSETRON 4 MG/2 ML VIAL IV PRN (02:24)
[2021-12-06] MEDS ORDERED: ALPRAZOLAM 0.25 MG TABLET PO PRN (02:24)
[2021-12-06] MEDS ORDERED: ACETAMINOPHEN 500 MG TAB PO PRN (02:24)
[2021-12-06] MEDS ORDERED: NA CHLORIDE 0.9% 500 ML IV ONE (06:08)
[2021-12-06] MEDS ORDERED: NA CHLORIDE 0.9% 1,000 ML IV SCH (07:00)
[2021-12-06] MEDS: INSULIN -REGULAR HUMAN 50 UNIT/0.5 ML ML SQ SCH ×2 (07:30→11:30)
[2021-12-06] MEDS ORDERED: NA CHLORIDE 0.9% 1,000 ML ONE (07:49)
[2021-12-06] MEDS ORDERED: ENOXAPARIN 30 MG/0.3 ML SQ ONE (07:49)
[2021-12-06] MEDS ORDERED: HYDROCORTISONE SUC 100 MG INJ IV ONE (08:10)
--- NOTE | 2021-12-06 08:44 | EKG ---
Test Date: 2021-12-05 Test Time: 20:46:34 [employer]: MARIALUISA MEASUREMENT RESULTS: Intervals: Rate: 52 ID: [id number] QRSD: 80 QT: 502 QTc: 466 [place]: P: 42 ID: [id number] QRS: 4 T: 50 INTERPRETIVE STATEMENTS: Sinus bradycardia Otherwise normal ECG Compared to ECG 11/30/2021 12:42:56 No significant changes Electronically Signed On 12-06-21 08:42:13 CDT by Deyvi Capone
[2021-12-06] MEDS ORDERED: ENOXAPARIN 30 MG/0.3 ML SQ SCH (09:00)
[2021-12-06 11:49] VITALS: BP 115/68; TEMP 97.6
[2021-12-06] MEDS ORDERED: HYDROCORTISONE SUC 100 MG INJ ONE (12:53)
[2021-12-06 13:53] VITALS: O2SAT 96
--- NOTE | 2021-12-08 13:29 | CON ---
Date of Consultation: 12/06/2021 Reason For Consultation: Chest pain. History Of Present Illness: Ms. Lyons is 81-year-old. She is known to us from previous office visits , many heart catheterization in the past. She just had a heart catheterization last week by Dr. James franco. 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 She had a patent RCA stent, patent circumflex stent. The LAD shows some minimal disease. She was recommended medical therapy, but comes back with further more ch est pain. Negative EKG, negative x-ray, negative troponin, negative BNP. Chest pain is resolved now after morphine. Past Medical History: Include paroxysmal atrial fibrillation. She takes Eliquis for that. She also has diabetes, hypertension, dyslipidemia, and hypothyroidism. Allergies: PENICILLIN. Review of Systems: Negative. Social History: Negative. Family History: Negative. Medications: At home include Eliquis, aspirin, Plavix, Synthroid, metformin, metoprolol, pravastatin . Physical Examination: Vital Signs: Stable. Afebrile. HEENT: Negative. Neck: Supple with no bruit. Chest: Clear. Cardiac: Revealed a regular rhythm and rate. No murmurs, gallops, or rubs. Abdomen: Benign. Extremities: Revealed no clubbing, cyanosis, or edema. Diagnostic Data: Showed a creatinine 1.8. Her BNP was 941. Troponin negative. EKG is unremarkable . Impression And Plan: Stable angina, probably secondary to her diagonal stenosis. This is not amenab le for angioplasty or stent. It is only 60%. RCA is open. Circumflex has a patent stent. LAD had some mild disease, but catheterization was only a week ago. We certainly have no plan to do another catheterization on her. I would suggest that we decrease her metoprolol and consider Imdur or Ranexa . She can otherwise go home today. Her other problems include paroxysmal atrial fibrillation, hypot hyroidism, hypertension, dyslipidemia are all stable at this point. AVANI/ASHLEY Voice ID: [id number] Report ID: [id number]
== END 2021-12-06 13:38 | disposition home or self-care (01) ==
LOC: ER 19:42 → ERHOLD 22:55
PROVIDERS: ADMIT Hospitalist; ATTEND Hospitalist
DX: I25.118 Atherosclerotic heart disease of native coronary artery with other forms of angina pectoris (principal); I11.0 Hypertensive heart disease with heart failure; I50.9 Heart failure, unspecified; I48.0 Paroxysmal atrial fibrillation; R06.02 Shortness of breath; M94.0 Chondrocostal junction syndrome [Tietze]; E11.9 Type 2 diabetes mellitus without complications; E78.5 Hyperlipidemia, unspecified; E03.9 Hypothyroidism, unspecified; F32.A Depression, unspecified; F41.9 Anxiety disorder, unspecified; E66.9 Obesity, unspecified; Z68.38 Body mass index [BMI] 38.0-38.9, adult; Z98.890 Other specified postprocedural states; Z95.5 Presence of coronary angioplasty implant and graft; Z79.01 Long term (current) use of anticoagulants; Z79.02 Long term (current) use of antithrombotics/antiplatelets; Z79.82 Long term (current) use of aspirin; Z79.899 Other long term (current) drug therapy; Z88.0 Allergy status to penicillin; Z20.822 Contact with and (suspected) exposure to COVID-19; Z83.3 Family history of diabetes mellitus
CPT/HCPCS: 93005; 85025; 80048; 36415; 85610; 82947; 84484; 83880; 71045; 99285; U0003; J1650; J7030; J1720; G0378 ×2

== ENCOUNTER 2021-12-15 11:43 | Observation (INO) | payer OTHER ==
--- OUTSIDE RECORDS SUMMARY | 2021-12-15 12:21 | XMS REPORT | Continuity of Care Document ---
:1940 Author Organization [facility] t Address [facility] [place] [address] Care Team Providers Name Role Phone Evelio PÉREZ, Pablo Primary Care Physician Lashae Gomez Attending Clinician Unavailable JACOB Attending Clinician Unavailable Evelio PÉREZ, Pablo Attending Clinician MAUDE WHITAKER Attending Clinician Unavailable [...] Clinician Unavailable Pablo FRASER Attending Clinician Unavailable MONTY, Karina Attending Clinician Unavailable MONTY, Karina Attending Clinician Unavailable JAYLA Attending Clinician Unavailable Jose Guadalupe PÉREZ Attending Clinician Jayla PÉREZ Attending Clinician Monty PÉREZ, Karina Attending Clinician Neal Jon DO Attending Clinician Jitendra PILLAI. Attending Clinician Unavailable Pablo MARTINS Attending Clinician [...] Attending Clinician Bruce Attending Clinician Unavailable Lakshmi CHAVIRA A Attending Clinician Jacob PÉREZ Attending Clinician Luís CHAVIRA Attending Clinician JACOB Admitting Clinician Unavailable KYRIE Admitting Clinician Unavailable Kyrie PÉREZ Admitting Clinician SATNAM STORY Admitting Clinician Unavailable Pablo FRASER Admitting Clinician Unavailable Payers Payer Name Policy Type Policy Number Effective Date Expiration Date Claudia baltazar [employer] MEDICARE ADV [id number] 2016 00:00:00 Problems Condition Condition Condition Status Onset Resolution Last Treating Co mments Source Name Details Category Date Date Treatment Clinician Date Microalbum Microalbum Disease Active 2021-0 U nivers inuria inuria 5-24 ity of 00:00: [place] 00 Medical Branch Chronic Chronic Disease Active Univers kidney kidney 1-05 ity of disease, disease, 00:00: [place] stage III stage III 00 Medi kacey (moderate) (moderate) Br anch Thiamine Thiamine Disease Active 2019-09 Unive rs deficiency deficiency 2-16 it y of 00:00: [place] [facility] Iron Iron Disease Active 2019-09 Univers deficiency deficiency 2-16 it y of 00:00: [place] [facility] PAD PAD Disease Active 2019-09 Univers (periphera (periphera 2-09 it y of l artery l artery 00:00: [place] disease) disease) 00 Medica l Branch Venous Venous Disease Active 2019-09 Univers insufficie insufficie 2-09 it y of ncy ncy 00:00: [place] [facility] DAVID DAVID Disease Active 2019-09 Univers (obstructi (obstructi 0-12 it y of ve sleep ve sleep 00:00: [place] apnea) apnea) 00 Medical Branch Pulmonary Pulmonary Disease Active Uni vers embolism embolism 3-21 ity of 00:00: [place] 00 Medical Branch History of History of Disease Active Overview : Univers colon colon 9-20 Formattin ity of polyps polyps 00:00: g of this 00 note Medical might be Branch different from the original. Added automatic ally from request for surgery [id number] Asthma Asthma Disease Active Univers exacerbati exacerbati 1-22 it y of on on 00:00: [place] [facility] Renal Renal Disease Active Univers cyst, cyst, 1-21 ity of right right 00:00: [place] [facility] Radiculopa Radiculopa Disease Active 2018 U nivers thy thy 2-01 ity of 00:00: [place] 00 Medical Branch Spinal Spinal Disease Active Univers stenosis, stenosis, 1-31 ity of lumbar lumbar 00:00: [place] region, region, 00 Medical without without Branch neurogenic neurogenic claudicati claudicati on on Acquired Acquired Disease Active 2016-09 Unive rs hypothyroi hypothyroi 2-19 it y of dism dism 00:00: [place] 00 Medical Branch Enlarged Enlarged Disease Active 2016-09 Unive rs uterus uterus 0-31 ity of 00:00: [place] 00 Medical Branch Pelvic Pelvic Disease Active 2016-09 Univers mass mass 0-31 ity of 00:00: [facility] Thickened Thickened Disease Active 2016-09 Uni vers endometriu endometriu 0-31 it y of m m 00:: [facility] Fibroid Fibroid Disease Active 2016-09 Univers uterus uterus 0- ity of 00:00: [facility] Fatty Fatty Disease Active 2016-09 Univers liver liver 0-05 ity of 00:00: [facility] Abnormal Abnormal Disease Active Unive rs LFTs LFTs 06-07 ity of (liver (liver 00:00: [place] function function 00 Medica l tests) tests) Branch Chronic Chronic Disease Active Univers insomnia insomnia 06-07 ity of 00:00: [facility] 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 06-07 it y of ia ia 00:: [facility] Type 2 Type 2 Disease Active Univers diabetes diabetes ity of mellitus mellitus [place] without without Medical complicati complicati Br anch on, on, without without long-term long-term current current use of use of insulin insulin Dry eyes Dry eyes Disease Active Unive rs ity of [facility] Edema Edema Disease Active Univers ity of [facility] Esophageal Esophageal Disease Active U nivers reflux reflux ity of [facility] Osteoporos Osteoporos Disease Active U nivers is is ity of [facility] Obesity Obesity Disease Active Univers ity of [facility] Parapelvic Parapelvic Disease Active U nivers renal cyst renal cyst it y of [facility] Chronic Chronic Disease Active Univers low back low back ity of pain with pain with [place] sciatica sciatica Medica l Branch Allergies, Adverse Reactions, Alerts Allergy Allergy Status Severity Reaction(s) Onset Inactive Treating Comm ents Source Name Type Date Date Clinician METOPROL DRUG Active Med ITCHING Univers OL INGREDI 02-04 ity of 00:00: [facility] Metoprol Propensi Active Rash Univer s ol ty to 02-04 ity of adverse 00:00: [place] reaction 00 [facility] Branch LOSARTAN DRUG Active Dizziness Unive rs INGREDI 06-09 ity of 00:00: [place] 00 [facility] AMLODIPI DRUG Active Other-Cmnt Univ ers NE INGREDI 06-09 ity of 00:00: [place] 00 Medical Branch Amlodipi Propensi Active Other - See 2020-0 [...] 00 Medical Branch EZETIMIB DRUG Active Other-Cmnt 2020-0 Univ ers E INGREDI 2- ity of 00:00: [place] 00 Medical Branch Fibrate Propensi Active Other - See 2020-0 Severe Un [place] Anti-Lip ty to comments [...] Severe U nivers Hmg-Coa ty to comments 9- myalgia ity of [place] adverse 00:00: [place] e reaction 00 Medical Inhibito s Branch rs Social History Social Habit Start Date Stop Date Quantity Comments Source Exposure to Not sure [place] of SARS-CoV-2 [place] [facility] (event) Branch Alcohol intake 2021-03-08 2021-03-08 Current University of 00:00:00 00:00:00 non-drinker of [facility] alcohol Branch (finding) History SDOH Food 2019-12-07 2019-12-07 1 Univers ity of Worry 00:00:00 00:00:00 [place] [facility] History SDND Food 2019-12-07 2019-12-07 1 Univers ity of Scarcity 00:00:00 00:00:00 [place] [facility] History SDOH 2019-12-07 2019-12-07 2 University o f Transport Med 00:00:00 00:00:00 [place] Medic al Branch History [facility] 2019-12-07 2019-12-07 2 University o f Transport Non-Med 00:00:00 00:00:00 [facility] edical Branch Tobacco use and 2017-05-28 2017-05-28 Never used Universit y of exposure 00:00:00 00:00:00 [facility] Sex [birth year] Universit y of 00:00:00 00:00:00 [facility] Smoking Status Start Date Stop Date Source Never smoker [facility] Medications Ordered Filled Start Stop Current Ordering Indication Dosage Frequency Signature Comments Components Source Medication Medication Date Date Medication? Clinician (SIG) Name Name DEXILANT 60 2021-0 Yes [id number] 60mg TAKE 1 Univers mg capsule 3-22 CAPSULE BY ity of 00:00: MOUTH [place] 00 DAILY. Medical STOP Branch ESOMEPRAZO LE. CLOPIDOGREL 2021-0 Yes [id number] TAKE 1 Univers 75 mg 2-25 [id number] TABLET BY ity of tablet 00:00: MOUTH [place] 00 EVERY DAY Medical Branch CLOPIDOGREL 2021-0 Yes [id number] TAKE 1 Univers 75 mg 2-25 [id number] TABLET BY ity of tablet 00:00: MOUTH [place] 00 EVERY DAY Medical Branch DEXILANT 60 2021-0 Yes [id number] 60mg TAKE 1 Univers mg capsule 2-24 CAPSULE BY ity of 00:00: MOUTH [place] 00 DAILY. Medical STOP Branch ESOMEPRAZO LE. DEXILANT 60 2021-0 2021- No [id number] 60mg TAKE 1 Univers mg capsule 2-24 03-22 CAPSULE BY it y of 00:00: 00:00 MOUTH [place] 00 :00 DAILY. Medical STOP Branch ESOMEPRAZO LE. DEXILANT 60 2020-0 Yes [id number] 60mg TAKE 1 Univers mg capsule 8-18 CAPSULE BY ity of 00:00: MOUTH [place] 00 DAILY. Medical STOP Branch ESOMEPRAZO LE. lisinopriL 0 Yes [id number] 20mg Take 1 U nivers 20 mg 6-22 tablet by ity of tablet 00:00: mouth [place] 00 daily. Medical Branch levothyroxi 0 Yes [id number] 50ug Take 1 Univers ne 50 mcg 6-22 tablet by ity o f tablet 00:00: mouth [place] 00 every Medical morning. Branch lisinopriL 0 Yes [id number] 20mg Take 1 U nivers 20 mg 6-22 tablet by ity of tablet 00:00: mouth [place] 00 daily. Medical Branch levothyroxi 0 Yes [id number] 50ug Take 1 Univers ne 50 mcg 6-22 tablet by ity o f tablet 00:00: mouth [place] 00 every Medical morning. Branch lisinopriL 0 Yes [id number] 20mg Take 1 U nivers 20 mg 6-22 tablet by ity of tablet 00:00: mouth [place] 00 daily. Medical Branch levothyroxi 2020-0 Yes [id number] 50ug Take 1 Univers ne 50 mcg 6-22 tablet by ity o f tablet 00:00: mouth [place] 00 every Medical morning. Branch lisinopriL 0 Yes [id number] 20mg Take 1 U nivers 20 mg 6-22 tablet by ity of tablet 00:00: mouth [place] 00 daily. Medical Branch levothyroxi 0 Yes [id number] 50ug Take 1 Univers ne 50 mcg 6-22 tablet by ity o f tablet 00:00: mouth [place] 00 every Medical morning. Branch lisinopriL 2020-0 Yes [id number] 20mg Take 1 U nivers 20 mg 6-22 tablet by ity of tablet 00:00: mouth [place] 00 daily. Medical Branch levothyroxi 0 Yes [id number] 50ug Take 1 Univers ne 50 mcg 6-22 tablet by ity o f tablet 00:00: mouth [place] 00 every Medical morning. Branch lisinopriL 2020-0 Yes [id number] 20mg Take 1 U nivers 20 mg 6-22 tablet by ity of tablet 00:00: mouth [place] 00 daily. Medical Branch levothyroxi 2020-0 Yes [id number] 50ug Take 1 Univers ne 50 mcg 6-22 tablet by ity o f tablet 00:00: mouth [place] 00 every Medical morning. [place] lisinopriL Yes [id number] 20mg Take 1 U nivers 20 mg 6-22 tablet by ity of tablet 00:00: mouth [place] 00 daily. [facility] levothyroxi Yes [id number] 50ug Take 1 Univers ne 50 mcg 6-22 tablet by ity o f tablet 00:00: mouth [place] 00 every Medical morning. [place] lisinopriL Yes [id number] 20mg Take 1 U nivers 20 mg 6-22 tablet by ity of tablet 00:00: mouth [place] 00 daily. [facility] Branch levothyroxi Yes [id number] 50ug Take 1 Univers ne 50 mcg 6-22 tablet by ity o f tablet 00:00: mouth [place] 00 every Medical morning. [place] LEVOTHYROXI Yes [id number] TAKE 1 Univers NE 50 mcg 6-21 TABLET BY ity o f tablet 00:00: MOUTH [place] 00 EVERY DAY Medical IN THE [place] MORNING LEVOTHYROXI 2020-2020- No [id number] TAKE 1 Univers NE 50 mcg 6-21 06-22 TABLET BY ity of tablet 00:00: 00:00 MOUTH [place] 00 :00 EVERY DAY Medical IN THE [place] MORNING LEVOTHYROXI 2020-0 2020- No [id number] TAKE 1 Univers NE 50 mcg 6-21 06-22 TABLET BY ity of tablet 00:00: 00:00 MOUTH [place] 00 :00 EVERY DAY Medical IN THE [place] MORNING TRIAMTERENE Yes [id number] TAKE 1 Univers -HYDROCHLOR 6-08 TABLET BY ity of OTHIAZID 00:00: MOUTH [place] 37.5-25 mg 00 EVERY DAY Medi kacey tablet [place] TRIAMTERENE 0 Yes [id number] TAKE 1 Univers -HYDROCHLOR 6-08 TABLET BY ity of OTHIAZID 00:00: MOUTH [place] 37.5-25 mg 00 EVERY DAY Medi kacey tablet [facility] TRIAMTERENE 0 Yes [id number] TAKE 1 Univers -HYDROCHLOR 6-08 TABLET BY ity of OTHIAZID 00:00: MOUTH [place] 37.5-25 mg 00 EVERY DAY Medi kacey tablet [place] TRIAMTERENE Yes [id number] TAKE 1 Univers -HYDROCHLOR 6-08 TABLET BY ity of OTHIAZID 00:00: MOUTH [place] 37.5-25 mg 00 EVERY DAY Medi kacey tablet Branch TRIAMTERENE 2020-0 Yes [id number] TAKE 1 Univers -HYDROCHLOR 6-08 TABLET BY ity of OTHIAZID 00:00: MOUTH [place] 37.5-25 mg 00 EVERY DAY Medi kacey tablet Branch TRIAMTERENE 2020-0 Yes [id number] TAKE 1 Univers -HYDROCHLOR 6-08 TABLET BY ity of OTHIAZID 00:00: MOUTH [place] 37.5-25 mg 00 EVERY DAY Medi kacey tablet Branch TRIAMTERENE 2020-0 Yes [id number] TAKE 1 Univers -HYDROCHLOR 6-08 TABLET BY ity of OTHIAZID 00:00: MOUTH [place] 37.5-25 mg 00 EVERY DAY Medi kacey tablet Branch TRIAMTERENE 2020-0 Yes [id number] TAKE 1 Univers -HYDROCHLOR 6-08 TABLET BY ity of OTHIAZID 00:00: MOUTH [place] 37.5-25 mg 00 EVERY DAY Medi kacey tablet Branch TRIAMTERENE 2020-0 Yes [id number] TAKE 1 Univers -HYDROCHLOR 6-08 TABLET BY ity of OTHIAZID 00:00: MOUTH [place] 37.5-25 mg 00 EVERY DAY Medi kacey tablet Branch TRIAMTERENE 2020-0 Yes [id number] TAKE 1 Univers -HYDROCHLOR 6-08 TABLET BY ity of OTHIAZID 00:00: MOUTH [place] 37.5-25 mg 00 EVERY DAY Medi kacey tablet Branch TRIAMTERENE 2020-0 Yes [id number] TAKE 1 Univers -HYDROCHLOR 6-08 TABLET BY ity of OTHIAZID 00:00: MOUTH [place] 37.5-25 mg 00 EVERY DAY Medi kacey tablet Branch TRIAMTERENE 2020-0 Yes [id number] TAKE 1 Univers -HYDROCHLOR 6-08 TABLET BY ity of OTHIAZID 00:00: MOUTH [place] 37.5-25 mg 00 EVERY DAY Medi kacey tablet Branch acetaminoph 2020-0 Yes Univer s en-codeine 6-07 ity of 300-30 mg 00:00: [place] tablet 00 Medical Branch acetaminoph 1-0 Yes Univer s en-codeine 6-07 ity of 300-30 mg 00:00: [place] tablet 00 Medical Branch acetaminoph 2020-0 Yes Univer s en-codeine [...] tablet 00 Medical Branch hydrOXYzine 1-0 Yes [id number] 25mg Take 1 Univers 25 mg 5-24 tablet by ity of tablet 00:00: mouth [place] 00 every 6 Medical (six) Branch hours as needed for Itching. triamcinolo 1-0 Yes [id number] Apply to Univers ne 5-24 area(s) 2 ity of acetonide 00:00: (two) [place] 0.1 % cream 00 times Medical daily. Branch hydrOXYzine 2020-0 Yes [id number] 25mg Take 1 Univers 25 mg 5-24 tablet by ity of tablet 00:00: mouth [place] 00 every 6 Medical (six) Branch hours as needed for Itching. triamcinolo 1-0 Yes [id number] Apply to Univers ne 5-24 area(s) 2 ity of acetonide 00:00: (two) [place] 0.1 % cream 00 times Medical daily. Branch hydrOXYzine 2020-0 Yes [id number] 25mg Take 1 Univers 25 mg 5-24 tablet by ity of tablet 00:00: mouth [place] 00 every 6 Medical (six) Branch hours as needed for Itching. triamcinolo 1-0 Yes [id number] Apply to Univers ne 5-24 area(s) 2 ity of acetonide 00:00: (two) [place] 0.1 % cream 00 times Medical daily. Branch hydrOXYzine 2020-0 Yes [id number] 25mg Take 1 Univers 25 mg 5-24 tablet by ity of tablet 00:00: mouth [place] 00 every 6 Medical (six) Branch hours as needed for Itching. triamcinolo 2021-0 Yes [id number] Apply to Univers ne 5-24 area(s) 2 ity of acetonide 00:00: (two) [place] 0.1 % cream 00 times Medical daily. Branch hydrOXYzine 2021-0 Yes [id number] 25mg Take 1 Univers 25 mg 5-24 tablet by ity of tablet 00:00: mouth [place] 00 every 6 Medical (six) Branch hours as needed for Itching. triamcinolo 2021-0 Yes [id number] Apply to Univers ne 5-24 area(s) 2 ity of acetonide 00:00: (two) [place] 0.1 % cream 00 times Medical daily. Branch hydrOXYzine 2021-0 Yes [id number] 25mg Take 1 Univers 25 mg 5-24 tablet by ity of tablet 00:00: mouth [place] 00 every 6 Medical (six) Branch hours as needed for Itching. triamcinolo 2021-0 Yes [id number] Apply to Univers ne 5-24 area(s) 2 ity of acetonide 00:00: (two) [place] 0.1 % cream 00 times Medical daily. Branch hydrOXYzine 2021-0 Yes [id number] 25mg Take 1 Univers 25 mg 5-24 tablet by ity of tablet 00:00: mouth [place] 00 every 6 Medical (six) Branch hours as needed for Itching. triamcinolo 2021-0 Yes [id number] Apply to Univers ne 5-24 area(s) 2 ity of acetonide 00:00: (two) [place] 0.1 % cream 00 times Medical daily. Branch hydrOXYzine 2021-0 Yes [id number] 25mg Take 1 Univers 25 mg 5-24 tablet by ity of tablet 00:00: mouth [place] 00 every 6 Medical (six) Branch hours as needed for Itching. triamcinolo 2021-0 Yes [id number] Apply to Univers ne 5-24 area(s) 2 ity of acetonide 00:00: (two) [place] 0.1 % cream 00 times Medical daily. Branch hydrOXYzine 2021-0 Yes [id number] 25mg Take 1 Univers 25 mg 5-24 tablet by ity of tablet 00:00: mouth [place] 00 every 6 Medical (six) Branch hours as needed for Itching. triamcinolo 2021-0 Yes [id number] Apply to Univers ne 5-24 area(s) 2 ity of acetonide 00:00: (two) [place] 0.1 % cream 00 times Medical daily. Branch hydrOXYzine 2021-0 Yes [id number] 25mg Take 1 Univers 25 mg 5-24 tablet by ity of tablet 00:00: mouth [place] 00 every 6 Medical (six) Branch hours as needed for Itching. triamcinolo 2021-0 Yes [id number] Apply to Univers ne 5-24 area(s) 2 ity of acetonide 00:00: (two) [place] 0.1 % cream 00 times Medical daily. Branch hydrOXYzine 2021-0 Yes [id number] 25mg Take 1 Univers 25 mg 5-24 tablet by ity of tablet 00:00: mouth [place] 00 every 6 Medical (six) Branch hours as needed for Itching. triamcinolo 2021-0 Yes [id number] Apply to Univers ne 5-24 area(s) 2 ity of acetonide 00:00: (two) [place] 0.1 % cream 00 times Medical daily. Branch hydrOXYzine 2021-0 Yes [id number] 25mg Take 1 Univers 25 mg 5-24 tablet by ity of tablet 00:00: mouth [place] 00 every 6 Medical (six) Branch hours as needed for Itching. triamcinolo 2021-0 Yes [id number] Apply to Univers ne 5-24 area(s) 2 ity of acetonide 00:00: (two) [place] 0.1 % cream 00 times Medical daily. Branch hydrOXYzine 2021-0 Yes [id number] 25mg Take 1 Univers 25 mg 5-24 tablet by ity of tablet 00:00: mouth [place] 00 every 6 Medical (six) Branch hours as needed for Itching. triamcinolo 2021-0 Yes [id number] Apply to Univers ne 5-24 area(s) 2 ity of acetonide 00:00: (two) [place] 0.1 % cream 00 times Medical daily. Branch hydrOXYzine 2021-0 Yes [id number] 25mg Take 1 Univers 25 mg 5-24 tablet by ity of tablet 00:00: mouth [place] 00 every 6 Medical (six) Branch hours as needed for Itching. triamcinolo 0 Yes [id number] Apply to Univers ne 5-24 area(s) 2 ity of acetonide 00:00: (two) [place] 0.1 % cream 00 times Medical daily. Branch hydrOXYzine Yes [id number] 25mg Take 1 Univers 25 mg 5-24 tablet by ity of tablet 00:00: mouth [place] 00 every 6 Medical (six) Branch hours as needed for Itching. triamcinolo 2020-0 Yes [id number] Apply to Univers ne 5-24 area(s) 2 ity of acetonide 00:00: (two) [place] 0.1 % cream 00 times Medical daily. Branch Magnesium Yes Take by Univ ers 250 mg Tab 5-21 mouth. ity of 22:05: [place] [address] Medical Branch vitamin B-6 Yes 100mg Take 100 U nivers (VITAMIN 5-21 mg by ity of B-6) 100 mg 22:05: mouth [place] tablet 48 daily. Medical Branch CALCIUM Yes Take by Univer s CARBONATE/V 5-21 mouth. ity of ITAMIN D3 22:05: [place] (VITAMIN 48 Medical D-3 ORAL) Branch Magnesium Yes Take by Univ ers 250 mg Tab 5-21 mouth. ity of 22:05: [place] [address] Medical Branch vitamin B-6 Yes 100mg Take 100 U nivers (VITAMIN 5-21 mg by ity of B-6) 100 mg 22:05: mouth [place] tablet 48 daily. Medical Branch CALCIUM Yes Take by Univer s CARBONATE/V 5-21 mouth. ity of ITAMIN D3 22:05: [place] (VITAMIN 48 Medical D-3 ORAL) Branch Magnesium Yes Take by Univ ers 250 mg Tab 5-21 mouth. ity of 22:05: [place] [address] Medical Branch vitamin B-6 Yes 100mg Take 100 U nivers (VITAMIN 5-21 mg by ity of B-6) 100 mg 22:05: mouth [place] tablet 48 daily. Medical Branch CALCIUM Yes Take by Univer s CARBONATE/V 5-21 mouth. ity of ITAMIN D3 22:05: [place] (VITAMIN 48 Medical D-3 ORAL) Branch Magnesium Yes Take by Univ ers 250 mg Tab 5-21 mouth. ity of 22:05: [place] [address] Medical Branch vitamin B-6 Yes 100mg Take 100 U nivers (VITAMIN 5-21 mg by ity of B-6) 100 mg 22:05: mouth [place] tablet 48 daily. Medical Branch CALCIUM Yes Take by Univer s CARBONATE/V 5-21 mouth. ity of ITAMIN D3 22:05: [place] (VITAMIN 48 Medical D-3 ORAL) Branch Magnesium Yes Take by Univ ers 250 mg Tab 5-21 mouth. ity of 22:05: [place] [address] Medical Branch vitamin B-6 Yes 100mg Take 100 U nivers (VITAMIN 5-21 mg by ity of B-6) 100 mg 22:05: mouth [place] tablet 48 daily. Medical Branch CALCIUM Yes Take by Univer s CARBONATE/V 5-21 mouth. ity of ITAMIN D3 22:05: [place] (VITAMIN 48 Medical D-3 ORAL) Branch Magnesium Yes Take by Univ ers 250 mg Tab 5-21 mouth. ity of 22:05: [place] [address] Medical Branch vitamin B-6 Yes 100mg Take 100 U nivers (VITAMIN 5-21 mg by ity of B-6) 100 mg 22:05: mouth [place] tablet 48 daily. Medical Branch CALCIUM Yes Take by Univer s CARBONATE/V 5-21 mouth. ity of ITAMIN D3 22:05: [place] (VITAMIN 48 Medical D-3 ORAL) Branch Magnesium Yes Take by Univ ers 250 mg Tab 5-21 mouth. ity of 22:05: [place] [address] Medical Branch vitamin B-6 Yes 100mg Take 100 U nivers (VITAMIN 5-21 mg by ity of B-6) 100 mg 22:05: mouth [place] tablet 48 daily. Medical Branch CALCIUM Yes Take by Univer s CARBONATE/V 5-21 mouth. ity of ITAMIN D3 22:05: [place] (VITAMIN 48 Medical D-3 ORAL) Branch Magnesium Yes Take by Univ ers 250 mg Tab 5-21 mouth. ity of 22:05: [place] [address] Medical Branch vitamin B-6 Yes 100mg Take 100 U nivers (VITAMIN 5-21 mg by ity of B-6) 100 mg 22:05: mouth [place] tablet 48 daily. Medical Branch CALCIUM Yes Take by Univer s CARBONATE/V 5-21 mouth. ity of ITAMIN D3 22:05: [place] (VITAMIN 48 Medical D-3 ORAL) Branch Magnesium Yes Take by Univ ers 250 mg Tab 5-21 mouth. ity of 22:05: [place] [address] Medical Branch vitamin B-6 Yes 100mg Take 100 U nivers (VITAMIN 5-21 mg by ity of B-6) 100 mg 22:05: mouth [place] tablet 48 daily. Medical Branch CALCIUM Yes Take by Univer s CARBONATE/V 5-21 mouth. ity of ITAMIN D3 22:05: [place] (VITAMIN 48 Medical D-3 ORAL) Branch Magnesium Yes Take by Univ ers 250 mg Tab 5-21 mouth. ity of 22:05: [place] [address] Medical Branch vitamin B-6 Yes 100mg Take 100 U nivers (VITAMIN 5-21 mg by ity of B-6) 100 mg 22:05: mouth [place] tablet 48 daily. Medical Branch CALCIUM Yes Take by Univer s CARBONATE/V 5-21 mouth. ity of ITAMIN D3 22:05: [place] (VITAMIN 48 Medical D-3 ORAL) Branch Magnesium Yes Take by Univ ers 250 mg Tab 5-21 mouth. ity of 22:05: [place] [address] Medical Branch vitamin B-6 Yes 100mg Take 100 U nivers (VITAMIN 5-21 mg by ity of B-6) 100 mg 22:05: mouth [place] tablet 48 daily. Medical Branch CALCIUM Yes Take by Univer s CARBONATE/V 5-21 mouth. ity of ITAMIN D3 22:05: [place] (VITAMIN 48 Medical D-3 ORAL) Branch Magnesium Yes Take by Univ ers 250 mg Tab 5-21 mouth. ity of 22:05: [place] [address] Medical Branch vitamin B-6 Yes 100mg Take 100 U nivers (VITAMIN 5-21 mg by ity of B-6) 100 mg 22:05: mouth [place] tablet 48 daily. Medical Branch CALCIUM Yes Take by Univer s CARBONATE/V 5-21 mouth. ity of ITAMIN D3 22:05: [place] (VITAMIN 48 Medical D-3 ORAL) Branch Magnesium Yes Take by Univ ers 250 mg Tab 5-21 mouth. ity of 22:05: [place] [address] Medical Branch vitamin B-6 Yes 100mg Take 100 U nivers (VITAMIN 5-21 mg by ity of B-6) 100 mg 22:05: mouth [place] tablet 48 daily. Medical Branch CALCIUM Yes Take by Univer s CARBONATE/V 5-21 mouth. ity of ITAMIN D3 22:05: [place] (VITAMIN 48 Medical D-3 ORAL) Branch Magnesium Yes Take by Univ ers 250 mg Tab 5-21 mouth. ity of 22:05: [place] [address] Medical Branch vitamin B-6 Yes 100mg Take 100 U nivers (VITAMIN 5-21 mg by ity of B-6) 100 mg 22:05: mouth [place] tablet 48 daily. Medical Branch CALCIUM Yes Take by Univer s CARBONATE/V 5-21 mouth. ity of ITAMIN D3 22:05: [place] (VITAMIN 48 Medical D-3 ORAL) Branch Magnesium Yes Take by Univ ers 250 mg Tab 5-21 mouth. ity of 22:05: [place] [address] Medical Branch vitamin B-6 Yes 100mg Take 100 U nivers (VITAMIN 5-21 mg by ity of B-6) 100 mg 22:05: mouth [place] tablet 48 daily. Medical Branch CALCIUM Yes Take by Univer s CARBONATE/V 5-21 mouth. ity of ITAMIN D3 22:05: [place] (VITAMIN 48 Medical D-3 ORAL) Branch alcaftadine Yes Place in U nivers (LASTACAFT) 5-21 each eye. ity of 0.25 % Drop 22:05: [place] [address] Medical Branch CYCLOSPORIN Yes Place in U nivers E (RESTASIS 5-21 each eye. ity of OPHTHALMIC) 22:05: [place] [address] Medical Branch vitamin E Yes 1000U Take 1,000 U nivers 1,000 unit 5-21 Units by ity o f capsule 22:05: mouth [place] 47 daily. Medical Branch alcaftadine Yes Place in U nivers (LASTACAFT) 5-21 each eye. ity of 0.25 % Drop 22:05: [place] 47 Medical Branch CYCLOSPORIN 2020-[address] in U nivers E (RESTASIS 5-21 each eye. ity of OPHTHALMIC) 22:05: [place] [address] Medical Branch vitamin E 2020-0 Yes 1000U Take 1,000 U nivers 1,000 unit 5-21 Units by ity o f capsule 22:05: mouth [place] [address] daily. Medical Branch alcaftadine 2020-[address] in U nivers (LASTACAFT) 5-21 each eye. ity of 0.25 % Drop 22:05: [place] [address] Medical Branch CYCLOSPORIN 2020-[address] in U nivers E (RESTASIS 5-21 each eye. ity of OPHTHALMIC) 22:05: [place] [address] Medical Branch vitamin E 2020-0 Yes 1000U Take 1,000 U nivers 1,000 unit 5-21 Units by ity o f capsule 22:05: mouth [place] [address] daily. Medical Branch alcaftadine 2020-[address] in U nivers (LASTACAFT) 5-21 each eye. ity of 0.25 % Drop 22:05: [place] [address] Medical Branch CYCLOSPORIN 2020-[address] in U nivers E (RESTASIS 5-21 each eye. ity of OPHTHALMIC) 22:05: [place] [address] Medical Branch vitamin E 2020-0 Yes 1000U Take 1,000 U nivers 1,000 unit 5-21 Units by ity o f capsule 22:05: mouth [place] [address] daily. Medical Branch alcaftadine 2020-[address] in U nivers (LASTACAFT) 5-21 each eye. ity of 0.25 % Drop 22:05: [place] [address] Medical Branch CYCLOSPORIN 2020-[address] in U nivers E (RESTASIS 5-21 each eye. ity of OPHTHALMIC) 22:05: [place] [address] Medical Branch vitamin E 2020-0 Yes 1000U Take 1,000 U nivers 1,000 unit 5-21 Units by ity o f capsule 22:05: mouth [place] [address] daily. Medical Branch alcaftadine 2020-[address] in U nivers (LASTACAFT) 5-21 each eye. ity of 0.25 % Drop 22:05: [place] [address] Medical Branch CYCLOSPORIN 2020-[address] in U nivers E (RESTASIS 5-21 each eye. ity of OPHTHALMIC) 22:05: [place] [address] Medical Branch vitamin E 2020-0 Yes 1000U Take 1,000 U nivers 1,000 unit 5-21 Units by ity o f capsule 22:05: mouth [place] [address] daily. Medical Branch alcaftadine [address] in [facility] nivers (LASTACAFT) 5-21 each eye. ity of 0.25 % Drop 22:05: [place] [address] Medical Branch CYCLOSPORIN [address] in U nivers E (RESTASIS 5-21 each eye. ity of OPHTHALMIC) 22:05: [place] [address] Medical Branch vitamin E 2020-0 Yes 1000U Take 1,000 U nivers 1,000 unit 5-21 Units by ity o f capsule 22:05: mouth [place] [address] daily. Medical Branch alcaftadine [address] in [facility] nivers (LASTACAFT) 5-21 each eye. ity of 0.25 % Drop 22:05: [place] [address] Medical Branch CYCLOSPORIN [address] in U nivers E (RESTASIS 5-21 each eye. ity of OPHTHALMIC) 22:05: [place] [address] Medical Branch vitamin E 0 Yes 1000U Take 1,000 U nivers 1,000 unit 5-21 Units by ity o f capsule 22:05: mouth [place] [address] daily. Medical Branch alcaftadine [address] in U nivers (LASTACAFT) 5-21 each eye. ity of 0.25 % Drop 22:05: [place] [address] Medical Branch CYCLOSPORIN [address] in U nivers E (RESTASIS 5-21 each eye. ity of OPHTHALMIC) 22:05: [place] [address] Medical Branch vitamin E 2020-0 Yes 1000U Take 1,000 U nivers 1,000 unit 5-21 Units by ity o f capsule 22:05: mouth [place] [address] daily. Medical Branch alcaftadine 2020-[address] in U nivers (LASTACAFT) 5-21 each eye. ity of 0.25 % Drop 22:05: [place] [address] Medical Branch CYCLOSPORIN 2020-[address] in U nivers E (RESTASIS 5-21 each eye. ity of OPHTHALMIC) 22:05: [place] [address] [facility] Branch vitamin E 2020-0 Yes 1000U Take 1,000 U nivers 1,000 unit 5-21 Units by ity o f capsule 22:05: mouth [place] [address] daily. Medical Branch alcaftadine 2020-[address] in U nivers (LASTACAFT) 5-21 each eye. ity of 0.25 % Drop 22:05: [place] [address] Medical Branch CYCLOSPORIN 2020-[address] in U nivers E (RESTASIS 5-21 each eye. ity of OPHTHALMIC) 22:05: [place] [address] Medical Branch vitamin E 2020-0 Yes 1000U Take 1,000 U nivers 1,000 unit 5-21 Units by ity o f capsule 22:05: mouth [place] [address] daily. Medical Branch alcaftadine 2020-[address] in U nivers (LASTACAFT) 5-21 each eye. ity of 0.25 % Drop 22:05: [place] [address] Medical Branch CYCLOSPORIN 2020-[address] in U nivers E (RESTASIS 5-21 each eye. ity of OPHTHALMIC) 22:05: [place] [address] [facility] Branch vitamin E 2020-0 Yes 1000U Take 1,000 U nivers 1,000 unit 5-21 Units by ity o f capsule 22:05: mouth [place] [address] daily. Medical Branch alcaftadine 2020-[address] in U nivers (LASTACAFT) 5-21 each eye. ity of 0.25 % Drop 22:05: [place] [address] Medical Branch CYCLOSPORIN 2020-[address] in U nivers E (RESTASIS 5-21 each eye. ity of OPHTHALMIC) 22:05: [place] [address] [facility] Branch vitamin E 2020-0 Yes 1000U Take 1,000 U nivers 1,000 unit 5-21 Units by ity o f capsule 22:05: mouth [place] [address] daily. Medical Branch alcaftadine 2020-[address] in U nivers (LASTACAFT) 5-21 each eye. ity of 0.25 % Drop 22:05: [place] [address] Medical Branch CYCLOSPORIN 2020-[address] in U nivers E (RESTASIS 5-21 each eye. ity of OPHTHALMIC) 22:05: [place] [address] Medical Branch vitamin E 2020-0 Yes 1000U Take 1,000 U nivers 1,000 unit 5-21 Units by ity o f capsule 22:05: mouth [place] [address] daily. Medical Branch alcaftadine 2020-[address] in [facility] nivers (LASTACAFT) 5-21 each eye. ity of 0.25 % Drop 22:05: [place] [address] Medical Branch CYCLOSPORIN Yes Place in U nivers E (RESTASIS 5-21 each eye. ity of OPHTHALMIC) 22:05: [place] [address] Medical Branch vitamin E Yes 1000U Take 1,000 U nivers 1,000 unit 5-21 Units by ity o f capsule 22:05: mouth [place] 47 daily. Medical Branch Magnesium Yes Take by Univ ers 250 mg Tab 5-21 mouth. ity of 17:05: [place] [address] Medical Branch vitamin B-6 Yes 100mg Take 100 U nivers (VITAMIN 5-21 mg by ity of B-6) 100 mg 17:05: mouth [place] tablet 48 daily. Medical Branch CALCIUM Yes Take by Univer s CARBONATE/V 5-21 mouth. ity of ITAMIN D3 17:05: [place] ([facility] 48 Medical D-3 ORAL) Branch Magnesium Yes Take by Univ ers 250 mg Tab 5-21 mouth. ity of 17:05: [address] Branch vitamin B-6 Yes 100mg Take 100 U nivers (VITAMIN 5-21 mg by ity of B-6) 100 mg 17:05: mouth [place] tablet 48 daily. Medical Branch CALCIUM 0 Yes Take by Univer s CARBONATE/V 5-21 mouth. ity of ITAMIN D3 17:05: [place] ([facility] 48 Medical D-3 ORAL) Branch alcaftadine Yes Place in U nivers (LASTACAFT) 5-21 each eye. ity of 0.25 % Drop 17:05: [address] Branch CYCLOSPORIN Yes Place in U nivers E (RESTASIS 5-21 each eye. ity of OPHTHALMIC) 17:05: [address] Branch vitamin E Yes 1000U Take 1,000 U nivers 1,000 unit 5-21 Units by ity o f capsule 17:05: mouth [place] 47 daily. Medical Branch alcaftadine [address] in U nivers (LASTACAFT) 5-21 each eye. ity of 0.25 % Drop 17:05: [address] Yes Place in U nivers E (RESTASIS 5-21 each eye. ity of OPHTHALMIC) 17:05: [place] 47 Medical Branch vitamin E Yes 1000U Take 1,000 U nivers 1,000 unit 5-21 Units by ity o f capsule 17:05: mouth daily. Medical Branch lisinopriL Yes [id number] 10mg Take 0.5 [facility] 20 mg 5-21 tablets by ity of tablet 00:00: mouth [place] 00 daily. Medical Branch lisinopriL Yes [id number] 10mg Take 0.5 [facility] 20 mg 5-21 tablets by ity of tablet 00:00: mouth [place] 00 daily. Medical Branch lisinopriL Yes [id number] 10mg Take 0.5 [facility] 20 mg 5-21 tablets by ity of tablet 00:00: mouth [place] 00 daily. Medical Branch lisinopriL Yes [id number] 10mg Take 0.5 [facility] 20 mg 5-21 tablets by ity of tablet 00:00: mouth [place] 00 daily. Medical Branch lisinopriL Yes [id number] 10mg Take 0.5 [facility] 20 mg 5-21 tablets by ity of tablet 00:00: mouth [place] 00 daily. Medical Branch lisinopriL Yes [id number] 10mg Take 0.5 [facility] 20 mg 5-21 tablets by ity of tablet 00:00: mouth [place] 00 daily. Medical Branch lisinopriL Yes [id number] 10mg Take 0.5 [facility] 20 mg 5-21 tablets by ity of tablet 00:00: mouth [place] 00 daily. Medical Branch lisinopriL 2020- No [id number] 10mg Take 0.5 [facility] 20 mg 5-21 06-22 tablets by ity of tablet 00:00: 00:00 mouth [place] 00 :00 daily. Medical Branch lisinopriL 2020- No [id number] 10mg Take 0.5 [facility] 20 mg 5-21 06-22 tablets by ity of tablet 00:00: 00:00 mouth [place] 00 :00 daily. Medical Branch Blood-Gluco Yes [id number] Check [facility] se Meter 5-11 glucose ity of Kit 00:00: once daily [place] 00 before Medical breakfast; Branch ICD-10 code E11.9 blood sugar Yes [id number] Check [facility] diagnostic 5-11 glucose ity of (BLOOD 00:00: once daily [place] GLUCOSE 00 before Medical TEST) strip breakfast; Br anch ICD-10 code E11.9 Lancets 0 Yes [id number] Check [facility] ers Misc 5-11 glucose ity of 00:00: once daily [place] 00 before Medical breakfast; Branch ICD-10 code E11.9 pravastatin 2020-0 Yes [id number] 10mg Take 1 Univers 10 mg 5-11 [id number] tablet by ity of tablet 00:00: mouth [place] 00 every Medical other day. Branch metformin 2020- Yes [id number] 500mg Take 1 U nivers ER 500 mg 5-11 tablet by ity o f 24 hr 00:00: mouth 2 [place] tablet 00 (two) Medical times Branch daily with meals. Blood-Gluco Yes [id number] Check [facility] se Meter 5-11 glucose ity of Kit 00:00: once daily [place] 00 before Medical breakfast; Branch ICD-10 code E11.9 blood sugar Yes [id number] Check [facility] diagnostic 5-11 glucose ity of (BLOOD 00:00: once daily [place] GLUCOSE 00 before Medical TEST) strip breakfast; Br anch ICD-10 code E11.9 Lancets Yes [id number] Check [facility] ers Misc 5-11 glucose ity of 00:00: once daily [place] 00 before Medical breakfast; Branch ICD-10 code E11.9 pravastatin 2020-0 Yes [id number] 10mg Take 1 [facility] 10 mg 5-11 [id number] tablet by ity of tablet 00:00: mouth [place] 00 every Medical other day. Branch metformin 2020-0 Yes [id number] 500mg Take 1 U nivers ER 500 mg 5-11 tablet by ity o f 24 hr 00:00: mouth 2 [place] tablet 00 (two) Medical times Branch daily with meals. Blood-Gluco 2020- Yes [id number] Check [facility] se Meter 5-11 glucose ity of Kit 00:00: once daily [place] 00 before Medical breakfast; Branch ICD-10 code E11.9 blood sugar Yes [id number] Check [facility] diagnostic 5-11 glucose ity of (BLOOD 00:00: once daily [place] GLUCOSE 00 before Medical TEST) strip breakfast; Br anch ICD-10 code E11.9 Lancets Yes [id number] Check [facility] ers Misc 5-11 glucose ity of 00:00: once daily [place] 00 before Medical breakfast; Branch ICD-10 code E11.9 pravastatin 2020-0 Yes [id number] 10mg Take 1 [facility] 10 mg 5-11 [id number] tablet by ity of tablet 00:00: mouth [place] 00 every Medical other day. Branch metformin 2020-0 Yes [id number] 500mg Take 1 U nivers ER 500 mg 5-11 tablet by ity o f 24 hr 00:00: mouth 2 [place] tablet 00 (two) Medical times Branch daily with meals. Blood-Gluco 2020- Yes [id number] Check [facility] se Meter 5-11 glucose ity of Kit 00:00: once daily [place] 00 before Medical breakfast; Branch ICD-10 code E11.9 blood sugar Yes [id number] Check [facility] diagnostic 5-11 glucose ity of (BLOOD 00:00: once daily [place] GLUCOSE 00 before Medical TEST) strip breakfast; Br anch ICD-10 code E11.9 Lancets Yes [id number] Check [facility] ers Misc 5-11 glucose ity of 00:00: once daily [place] 00 before Medical breakfast; Branch ICD-10 code E11.9 pravastatin 2020-0 Yes [id number] 10mg Take 1 Univers 10 mg 5-11 [id number] tablet by ity of tablet 00:00: mouth [place] 00 every Medical other day. Branch metformin 2020-0 Yes [id number] 500mg Take 1 U nivers ER 500 mg 5-11 tablet by ity o f 24 hr 00:00: mouth 2 [place] tablet 00 (two) Medical times Branch daily with meals. Blood-Gluco 2020- Yes [id number] Check [facility] se Meter 5-11 glucose ity of Kit 00:00: once daily [place] 00 before Medical breakfast; Branch ICD-10 code E11.9 blood sugar 2020-0 Yes [id number] Check [facility] diagnostic 5-11 glucose ity of (BLOOD 00:00: once daily [place] GLUCOSE 00 before Medical TEST) strip breakfast; Br anch ICD-10 code E11.9 Lancets 2020-0 Yes [id number] Check [facility] ers Misc 5-11 glucose ity of 00:00: once daily [place] 00 before Medical breakfast; Branch ICD-10 code E11.9 pravastatin 2020-0 Yes [id number] 10mg Take 1 Univers 10 mg 5-11 [id number] tablet by ity of tablet 00:00: mouth [place] 00 every Medical other day. Branch metformin 2020-0 Yes [id number] 500mg Take 1 U nivers ER 500 mg 5-11 tablet by ity o f 24 hr 00:00: mouth 2 [place] tablet 00 (two) Medical times Branch daily with meals. Blood-Gluco 2020-0 Yes [id number] Check [facility] se Meter 5-11 glucose ity of Kit 00:00: once daily [place] 00 before Medical breakfast; Branch ICD-10 code E11.9 blood sugar 2020-0 Yes [id number] Check [facility] diagnostic 5-11 glucose ity of (BLOOD 00:00: once daily [place] GLUCOSE 00 before Medical TEST) strip breakfast; Br anch ICD-10 code E11.9 Lancets 2020-0 Yes [id number] Check [facility] ers Misc 5-11 glucose ity of 00:00: once daily [place] 00 before Medical breakfast; Branch ICD-10 code E11.9 pravastatin 2020-0 Yes [id number] 10mg Take 1 Univers 10 mg 5-11 [id number] tablet by ity of tablet 00:00: mouth [place] 00 every Medical other day. Branch metformin 2020-0 Yes [id number] 500mg Take 1 U nivers ER 500 mg 5-11 tablet by ity o f 24 hr 00:00: mouth 2 [place] tablet 00 (two) Medical times Branch daily with meals. Blood-Gluco 2020-0 Yes [id number] Check [facility] se Meter 5-11 glucose ity of Kit 00:00: once daily [place] 00 before Medical breakfast; Branch ICD-10 code E11.9 blood sugar 2020-0 Yes [id number] Check [facility] diagnostic 5-11 glucose ity of (BLOOD 00:00: once daily [place] GLUCOSE 00 before Medical TEST) strip breakfast; Br anch ICD-10 code E11.9 Lancets 2020-0 Yes [id number] Check [facility] ers Misc 5-11 glucose ity of 00:00: once daily [place] 00 before Medical breakfast; Branch ICD-10 code E11.9 pravastatin 2020-0 Yes [id number] 10mg Take 1 Univers 10 mg 5-11 [id number] tablet by ity of tablet 00:00: mouth [place] 00 every Medical other day. Branch metformin 2020-0 Yes [id number] 500mg Take 1 U nivers ER 500 mg 5-11 tablet by ity o f 24 hr 00:00: mouth 2 [place] tablet 00 (two) Medical times Branch daily with meals. Blood-Gluco 2020-0 Yes [id number] Check [facility] se Meter 5-11 glucose ity of Kit 00:00: once daily [place] 00 before Medical breakfast; Branch ICD-10 code E11.9 blood sugar 2020-0 Yes [id number] Check [facility] diagnostic 5-11 glucose ity of (BLOOD 00:00: once daily [place] GLUCOSE 00 before Medical TEST) strip breakfast; Br anch ICD-10 code E11.9 Lancets 2020-0 Yes [id number] Check [facility] ers Misc 5-11 glucose ity of 00:00: once daily [place] 00 before Medical breakfast; Branch ICD-10 code E11.9 pravastatin 2020-0 Yes [id number] 10mg Take 1 Univers 10 mg 5-11 [id number] tablet by ity of tablet 00:00: mouth [place] 00 every Medical other day. Branch metformin 2020-0 Yes [id number] 500mg Take 1 U nivers ER 500 mg 5-11 tablet by ity o f 24 hr 00:00: mouth 2 [place] tablet 00 (two) Medical times Branch daily with meals. Blood-Gluco 2020- Yes [id number] Check [facility] se Meter 5-11 glucose ity of Kit 00:00: once daily [place] 00 before Medical breakfast; Branch ICD-10 code E11.9 blood sugar 0 Yes [id number] Check [facility] diagnostic 5-11 glucose ity of (BLOOD 00:00: once daily [place] GLUCOSE 00 before Medical TEST) strip breakfast; Br anch ICD-10 code E11.9 Lancets 2020-0 Yes [id number] Check [facility] ers Misc 5-11 glucose ity of 00:00: once daily [place] 00 before Medical breakfast; Branch ICD-10 code E11.9 pravastatin 2020-0 Yes [id number] 10mg Take 1 Univers 10 mg 5-11 [id number] tablet by ity of tablet 00:00: mouth [place] 00 every Medical other day. Branch metformin 2020-0 Yes [id number] 500mg Take 1 U nivers ER 500 mg 5-11 tablet by ity o f 24 hr 00:00: mouth 2 [place] tablet 00 (two) Medical times Branch daily with meals. Blood-Gluco 2020-0 Yes [id number] Check [facility] se Meter 5-11 glucose ity of Kit 00:00: once daily [place] 00 before Medical breakfast; Branch ICD-10 code E11.9 blood sugar 2020-0 Yes [id number] Check [facility] diagnostic 5-11 glucose ity of (BLOOD 00:00: once daily [place] GLUCOSE 00 before Medical TEST) strip breakfast; Br anch ICD-10 code E11.9 Lancets 2020-0 Yes [id number] Check [facility] ers Misc 5-11 glucose ity of 00:00: once daily [place] 00 before Medical breakfast; Branch ICD-10 code E11.9 pravastatin 2020-0 Yes [id number] 10mg Take 1 Univers 10 mg 5-11 [id number] tablet by ity of tablet 00:00: mouth [place] 00 every Medical other day. Branch metformin 2020-0 Yes [id number] 500mg Take 1 U nivers ER 500 mg 5-11 tablet by ity o f 24 hr 00:00: mouth 2 [place] tablet 00 (two) Medical times Branch daily with meals. Blood-Gluco 2020- Yes [id number] Check [facility] se Meter 5-11 glucose ity of Kit 00:00: once daily [place] 00 before Medical breakfast; Branch ICD-10 code E11.9 blood sugar 0 Yes [id number] Check [facility] diagnostic 5-11 glucose ity of (BLOOD 00:00: once daily [place] GLUCOSE 00 before Medical TEST) strip breakfast; Br anch ICD-10 code E11.9 Lancets 2020-0 Yes [id number] Check [facility] ers Misc 5-11 glucose ity of 00:00: once daily [place] 00 before Medical breakfast; Branch ICD-10 code E11.9 pravastatin 2020-0 Yes [id number] 10mg Take 1 [facility] 10 mg 5-11 [id number] tablet by ity of tablet 00:00: mouth [place] 00 every Medical other day. Branch metformin 2020-0 Yes [id number] 500mg Take 1 U nivers ER 500 mg 5-11 tablet by ity o f 24 hr 00:00: mouth 2 [place] tablet 00 (two) Medical times Branch daily with meals. Blood-Gluco 2020-0 Yes [id number] Check [facility] se Meter 5-11 glucose ity of Kit 00:00: once daily [place] 00 before Medical breakfast; Branch ICD-10 code E11.9 blood sugar 2020-0 Yes [id number] Check [facility] diagnostic 5-11 glucose ity of (BLOOD 00:00: once daily [place] GLUCOSE 00 before Medical TEST) strip breakfast; Br anch ICD-10 code E11.9 Lancets Yes [id number] Check [facility] ers Misc 5-11 glucose ity of 00:00: once daily [place] 00 before Medical breakfast; Branch ICD-10 code E11.9 pravastatin 2020-0 Yes [id number] 10mg Take 1 [facility] 10 mg 5-11 [id number] tablet by ity of tablet 00:00: mouth [place] 00 every Medical other day. Branch metformin Yes [id number] 500mg Take 1 U nivers ER 500 mg 5-11 tablet by ity o f 24 hr 00:00: mouth 2 [place] tablet 00 (two) Medical times Branch daily with meals. Blood-Gluco Yes [id number] Check [facility] se Meter 5-11 glucose ity of Kit 00:00: once daily [place] 00 before Medical breakfast; Branch ICD-10 code E11.9 blood sugar Yes [id number] Check [facility] diagnostic 5-11 glucose ity of (BLOOD 00:00: once daily [place] GLUCOSE 00 before Medical TEST) strip breakfast; Br anch ICD-10 code E11.9 Lancets Yes [id number] Check Univ ers Misc 5-11 glucose ity of 00:00: once daily [place] 00 before Medical breakfast; Branch ICD-10 code E11.9 pravastatin Yes [id number] 10mg Take 1 [facility] 10 mg 5-11 [id number] tablet by ity of tablet 00:00: mouth [place] 00 every Medical other day. Branch metformin 2020- Yes [id number] 500mg Take 1 U nivers ER 500 mg 5-11 tablet by ity o f 24 hr 00:00: mouth 2 [place] tablet 00 (two) Medical times Branch daily with meals. Blood-Gluco Yes [id number] Check [facility] se Meter 5-11 glucose ity of Kit 00:00: once daily [place] 00 before Medical breakfast; Branch ICD-10 code E11.9 blood sugar Yes [id number] Check [facility] diagnostic 5-11 glucose ity of (BLOOD 00:00: once daily [place] GLUCOSE 00 before Medical TEST) strip breakfast; Br anch ICD-10 code E11.9 Lancets Yes [id number] Check [facility] ers Misc 5-11 glucose ity of 00:00: once daily [place] 00 before Medical breakfast; Branch ICD-10 code E11.9 pravastatin 2020-0 Yes [id number] 10mg Take 1 [facility] 10 mg 5-11 [id number] tablet by ity of tablet 00:00: mouth [place] 00 every Medical other day. Branch metformin 2020-0 Yes [id number] 500mg Take 1 U nivers ER 500 mg 5-11 tablet by ity o f 24 hr 00:00: mouth 2 [place] tablet 00 (two) Medical times Branch daily with meals. Blood-Gluco 2020-0 Yes [id number] Check [facility] se Meter 5-11 glucose ity of Kit 00:00: once daily [place] 00 before Medical breakfast; Branch ICD-10 code E11.9 blood sugar 2020- Yes [id number] Check [facility] diagnostic 5-11 glucose ity of (BLOOD 00:00: once daily [place] GLUCOSE 00 before Medical TEST) strip breakfast; Br anch ICD-10 code E11.9 Lancets 2020-0 Yes [id number] Check [facility] ers Misc 5-11 glucose ity of 00:00: once daily [place] 00 before Medical breakfast; Branch ICD-10 code E11.9 pravastatin 2020-0 Yes [id number] 10mg Take 1 [facility] 10 mg 5-11 [id number] tablet by ity of tablet 00:00: mouth [place] 00 every Medical other day. Branch metformin 2020-0 Yes [id number] 500mg Take 1 U nivers ER 500 mg 5-11 tablet by ity o f 24 hr 00:00: mouth 2 [place] tablet 00 (two) Medical times Branch daily with meals. Blood-Gluco 2020-0 Yes [id number] Check [facility] se Meter 5-11 glucose ity of Kit 00:00: once daily [place] 00 before Medical breakfast; Branch ICD-10 code E11.9 blood sugar 2020-0 Yes [id number] Check [facility] diagnostic 5-11 glucose ity of (BLOOD 00:00: once daily [place] GLUCOSE 00 before Medical TEST) strip breakfast; Br anch ICD-10 code E11.9 Lancets 2020-0 Yes [id number] Check [facility] ers Misc 5-11 glucose ity of 00:00: once daily [place] 00 before Medical breakfast; Branch ICD-10 code E11.9 pravastatin 2020-0 Yes [id number] 10mg Take 1 [facility] 10 mg 5-11 [id number] tablet by ity of tablet 00:00: mouth [place] 00 every Medical other day. Branch metformin 2020-0 Yes [id number] 500mg Take 1 U nivers ER 500 mg 5-11 tablet by ity o f 24 hr 00:00: mouth 2 [place] tablet 00 (two) Medical times Branch daily with meals. Blood-Gluco 2020-0 Yes [id number] Check [facility] se Meter 5-11 glucose ity of Kit 00:00: once daily [place] 00 before Medical breakfast; Branch ICD-10 code E11.9 blood sugar 2020-0 Yes [id number] Check [facility] diagnostic 5-11 glucose ity of (BLOOD 00:00: once daily [place] GLUCOSE 00 before Medical TEST) strip breakfast; Br anch ICD-10 code E11.9 Lancets 0 Yes [id number] Check [facility] ers Misc 5-11 glucose ity of 00:00: once daily [place] 00 before Medical breakfast; Branch ICD-10 code E11.9 pravastatin 2020-0 Yes [id number] 10mg Take 1 [facility] 10 mg 5-11 [id number] tablet by ity of tablet 00:00: mouth [place] 00 every Medical other day. Branch metformin 2020-0 Yes [id number] 500mg Take 1 U nivers ER 500 mg 5-11 tablet by ity o f 24 hr 00:00: mouth 2 [place] tablet 00 (two) Medical times Branch daily with meals. Blood-Gluco 2020-0 Yes [id number] Check [facility] se Meter 5-11 glucose ity of Kit 00:00: once daily [place] 00 before Medical breakfast; Branch ICD-10 code E11.9 blood sugar 2020-0 Yes [id number] Check [facility] diagnostic 5-11 glucose ity of (BLOOD 00:00: once daily [place] GLUCOSE 00 before Medical TEST) strip breakfast; Br anch ICD-10 code E11.9 Lancets 2020-0 Yes [id number] Check [facility] ers Misc 5-11 glucose ity of 00:00: once daily [place] 00 before Medical breakfast; Branch ICD-10 code E11.9 pravastatin 2020-0 Yes [id number] 10mg Take 1 [facility] 10 mg 5-11 [id number] tablet by ity of tablet 00:00: mouth [place] 00 every Medical other day. Branch metformin 2020-0 Yes [id number] 500mg Take 1 U nivers ER 500 mg 5-11 tablet by ity o f 24 hr 00:00: mouth 2 [place] tablet 00 (two) Medical times Branch daily with meals. Blood-Gluco 2020-0 Yes [id number] Check [facility] se Meter 5-11 glucose ity of Kit 00:00: once daily [place] 00 before Medical breakfast; Branch ICD-10 code E11.9 blood sugar 2020-0 Yes [id number] Check [facility] diagnostic 5-11 glucose ity of (BLOOD 00:00: once daily [place] GLUCOSE 00 before Medical TEST) strip breakfast; Br anch ICD-10 code E11.9 Lancets 2020-0 Yes [id number] Check [facility] ers Misc 5-11 glucose ity of 00:00: once daily [place] 00 before Medical breakfast; Branch ICD-10 code E11.9 pravastatin 2020-0 Yes [id number] 10mg Take 1 [facility] 10 mg 5-11 [id number] tablet by ity of tablet 00:00: mouth [place] 00 every Medical other day. Branch metformin 2020-0 Yes [id number] 500mg Take 1 U nivers ER 500 mg 5-11 tablet by ity o f 24 hr 00:00: mouth 2 [place] tablet 00 (two) Medical times Branch daily with meals. Blood-Gluco 2020-0 Yes [id number] Check [facility] se Meter 5-11 glucose ity of Kit 00:00: once daily [place] 00 before Medical breakfast; Branch ICD-10 code E11.9 blood sugar 2020-0 Yes [id number] Check [facility] diagnostic 5-11 glucose ity of (BLOOD 00:00: once daily [place] GLUCOSE 00 before Medical TEST) strip breakfast; Br anch ICD-10 code E11.9 Lancets 2020-0 Yes [id number] Check [facility] ers Misc 5-11 glucose ity of 00:00: once daily [place] 00 before Medical breakfast; Branch ICD-10 code E11.9 pravastatin 2020-0 Yes [id number] 10mg Take 1 [facility] 10 mg 5-11 [id number] tablet by ity of tablet 00:00: mouth [place] 00 every Medical other day. Branch metformin 2020-0 Yes [id number] 500mg Take 1 U nivers ER 500 mg 5-11 tablet by ity o f 24 hr 00:00: mouth 2 [place] tablet 00 (two) Medical times Branch daily with meals. 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 [facility] metformin Yes [id number] 500mg Take 1 U nivers ER 500 mg 5-11 tablet by ity o f 24 hr 00:00: mouth 2 [place] tablet 00 (two) Medical times [facility] daily with meals. LEVOTHYROXI Yes [id number] TAKE 1 [facility] NE 50 mcg 5-05 TABLET BY ity o f tablet 00:00: MOUTH [place] 00 EVERY DAY Medical IN THE [facility] MORNING LEVOTHYROXI Yes [id number] TAKE 1 [facility] NE 50 mcg 5-05 TABLET BY ity o f tablet 00:00: MOUTH [place] 00 EVERY DAY Medical IN THE [facility] MORNING LEVOTHYROXI Yes [id number] TAKE 1 [facility] NE 50 mcg 5-05 TABLET BY ity o f tablet 00:00: MOUTH [place] 00 EVERY DAY Medical IN THE [facility] LEVOTHYROXI Yes [id number] TAKE 1 [facility] NE 50 mcg 5-05 TABLET BY ity o f tablet 00:00: MOUTH [place] 00 EVERY DAY Medical IN THE [facility] LEVOTHYROXI Yes [id number] TAKE 1 [facility] NE 50 mcg 5-05 TABLET BY ity o f tablet 00:00: MOUTH [place] 00 EVERY DAY Medical IN THE [facility] MORNING LEVOTHYROXI Yes [id number] TAKE 1 [facility] NE 50 mcg 5-05 TABLET BY ity o f tablet 00:00: MOUTH [place] 00 EVERY DAY Medical IN THE [facility] LEVOTHYROXI Yes [id number] TAKE 1 [facility] NE 50 mcg 5-05 TABLET BY ity o f tablet 00:00: MOUTH [place] 00 EVERY DAY Medical IN THE [facility] MORNING LEVOTHYROXI 0 Yes [id number] TAKE 1 [facility] NE 50 mcg 5-05 TABLET BY ity o f tablet 00:00: MOUTH [place] 00 EVERY DAY Medical IN THE [facility] MORNING LEVOTHYROXI 2020-0 Yes [id number] TAKE 1 [facility] NE 50 mcg 5-05 TABLET BY ity o f tablet 00:00: MOUTH 00 EVERY DAY Medical IN THE [facility] MORNING LEVOTHYROXI 2020-0 Yes [id number] TAKE 1 [facility] NE 50 mcg 5-05 TABLET BY ity o f tablet 00:00: MOUTH 00 EVERY DAY Medical IN THE [facility] LEVOTHYROXI 0 Yes [id number] TAKE 1 [facility] NE 50 mcg 5-05 TABLET BY ity o f tablet 00:00: MOUTH [place] 00 EVERY DAY Medical IN THE [facility] LEVOTHYROXI 2020- No [id number] TAKE 1 [facility] NE 50 mcg 5-05 06- TABLET BY ity of tablet 00:00: 00:00 MOUTH [place] 00 :00 EVERY DAY Medical IN [facility] MORNING metformin 2020-0 Yes Univers ER 750 mg 5-03 ity of 24 hr 00:00: [place] tablet 00 [facility] metformin 2020-0 Yes Univers ER 750 mg 5-03 ity of 24 hr 00:00: [place] tablet 00 [facility] metformin 2020-0 Yes Univers ER 750 mg 5-03 ity of 24 hr 00:00: [place] tablet 00 [facility] metformin 2020-0 Yes [facility] ER 750 mg 5-03 ity of 24 hr 00:00: [place] tablet 00 [facility] metformin 2020-0 Yes Univers ER 750 mg 5-03 ity of 24 hr 00:00: [place] tablet 00 [facility] metformin 2020-0 Yes [facility] ER 750 mg 5-03 ity of 24 hr 00:00: [place] tablet 00 [facility] metformin 2020-0 Yes Univers ER 750 mg 5-03 ity of 24 hr 00:00: [place] tablet 00 [facility] metformin 2020-0 Yes Univers ER 750 mg 5-03 ity of 24 hr 00:00: [place] tablet 00 [facility] TRAZODONE 2020-0 Yes [id number] TAKE 1 U nivers 100 mg 3-18 TABLET BY ity of tablet 00:00: MOUTH [place] 00 EVERY DAY Medical AT BEDTIME [facility] NEEDED FOR INSOMNIA TRAZODONE 2020-0 Yes [id number] TAKE 1 U nivers 100 mg 3-18 TABLET BY ity of tablet 00:00: MOUTH EVERY DAY Medical AT BEDTIME Branch NEEDED FOR INSOMNIA TRAZODONE 1-0 Yes [id number] TAKE 1 U nivers 100 mg 3-18 TABLET BY ity of tablet 00:00: MOUTH EVERY DAY Medical AT BEDTIME Branch NEEDED FOR INSOMNIA TRAZODONE 2020-0 Yes [id number] TAKE 1 U nivers 100 mg 3-18 TABLET BY ity of tablet 00:00: MOUTH EVERY DAY Medical AT BEDTIME Branch NEEDED FOR INSOMNIA TRAZODONE 2020-0 Yes [id number] TAKE 1 U nivers 100 mg 3-18 TABLET BY ity of tablet 00:00: EVERY DAY Medical AT BEDTIME Branch NEEDED FOR INSOMNIA TRAZODONE 2020-0 Yes [id number] TAKE 1 U nivers 100 mg 3-18 TABLET BY ity of tablet 00:00: EVERY DAY Medical AT BEDTIME Branch NEEDED FOR INSOMNIA TRAZODONE 2020-0 Yes [id number] TAKE 1 U nivers 100 mg 3-18 TABLET BY ity of tablet 00:00: EVERY DAY Medical AT BEDTIME Branch NEEDED FOR INSOMNIA TRAZODONE 1-0 Yes [id number] TAKE 1 U nivers 100 mg 3-18 TABLET BY ity of tablet 00:00: EVERY DAY Medical AT BEDTIME Branch NEEDED FOR INSOMNIA TRAZODONE 1-0 Yes [id number] TAKE 1 U nivers 100 mg 3-18 TABLET BY ity of tablet 00:00: EVERY DAY Medical AT BEDTIME Branch NEEDED FOR INSOMNIA TRAZODONE 1-0 Yes [id number] TAKE 1 U nivers 100 mg 3-18 TABLET BY ity of tablet 00:00: MOUTH EVERY DAY Medical AT BEDTIME Branch NEEDED FOR INSOMNIA TRAZODONE 1-0 Yes [id number] TAKE 1 U nivers 100 mg 3-18 TABLET BY ity of tablet 00:00: MOUTH EVERY DAY Medical AT BEDTIME Branch NEEDED FOR INSOMNIA TRAZODONE 1-0 Yes [id number] TAKE 1 U nivers 100 mg 3-18 TABLET BY ity of tablet 00:00: MOUTH EVERY DAY Medical AT BEDTIME Branch NEEDED FOR INSOMNIA TRAZODONE 2021-0 Yes [id number] TAKE 1 U nivers 100 mg 3-18 TABLET BY ity of tablet 00:00: EVERY DAY Medical AT BEDTIME Branch NEEDED FOR INSOMNIA TRAZODONE 1-0 Yes [id number] TAKE 1 U nivers 100 mg 3-18 TABLET BY ity of tablet 00:00: EVERY DAY Medical AT BEDTIME Branch NEEDED FOR INSOMNIA TRAZODONE 2020-0 Yes [id number] TAKE 1 U nivers 100 mg 3-18 TABLET BY ity of tablet 00:00: EVERY DAY Medical AT BEDTIME Branch NEEDED FOR INSOMNIA TRAZODONE 2020-0 Yes [id number] TAKE 1 U nivers 100 mg 3-18 TABLET BY ity of tablet 00:00: EVERY DAY Medical AT BEDTIME Branch NEEDED FOR INSOMNIA TRAZODONE 1-0 Yes [id number] TAKE 1 U nivers 100 mg 3-18 TABLET BY ity of tablet 00:00: EVERY DAY Medical AT BEDTIME Branch NEEDED FOR INSOMNIA TRAZODONE 1-0 Yes [id number] TAKE 1 U nivers 100 mg 3-18 TABLET BY ity of tablet 00:00: EVERY DAY Medical AT BEDTIME Branch NEEDED FOR INSOMNIA TRAZODONE 1-0 Yes [id number] TAKE 1 U nivers 100 mg 3-18 TABLET BY ity of tablet 00:00: EVERY DAY Medical AT BEDTIME Branch NEEDED FOR INSOMNIA TRAZODONE 1-0 Yes [id number] TAKE 1 U nivers 100 mg 3-18 TABLET BY ity of tablet 00:00: EVERY DAY Medical AT BEDTIME Branch NEEDED FOR INSOMNIA TRAZODONE 1-0 Yes [id number] TAKE 1 U nivers 100 mg 3-18 TABLET BY ity of tablet 00:00: EVERY DAY Medical AT BEDTIME Branch NEEDED FOR INSOMNIA TRAZODONE 2021-0 Yes [id number] TAKE 1 U nivers 100 mg 3-18 TABLET BY ity of tablet 00:00: EVERY DAY Medical AT BEDTIME Branch NEEDED FOR INSOMNIA TRAZODONE 1-0 Yes [id number] TAKE 1 U nivers 100 mg 3-18 TABLET BY ity of tablet 00:00: MOUTH 00 EVERY DAY Medical AT BEDTIME Branch NEEDED FOR INSOMNIA metroNIDAZO 2020-2020- No 500mg 500 mg, IV Univers LE in NaCl 11-14 Infusion, ity of (iso-os) 21:45: 09:44 ONCE, 1 [place] (FLAGYL 00 :00 dose, [facility] RTU 11/14/20 at [facility] IV infusion 1545, 100 500 mg mL
Reas on for Anti-Infec tive: Documented Infection< br>Documen cesar Infection Site: Abdominal< br>Duratio n of Therapy: Other (see Comments) iohexol 2020-2020- No 100mL 100 mL, Unive rs (OMNIPAQUE 11-14 Intravenou it y of 350 20:00: 19:45 s, ONCE, 1 [place] BULK-100 00 :00 dose, [facility] mL) 11/14/20 at [facility] injection 1400, 100 mL Routine ciprofloxac 2020-0 Yes [id number] 500mg Take 1 [facility] in HCl 500 2-28 tablet by ity of mg tablet 00:00: mouth (two) Medical times Branch daily. metroNIDAZO 2020-0 Yes [id number] 500mg Take 1 [facility] LE 500 mg 2-28 tablet by ity o f tablet 00:00: mouth (two) Medical times Branch daily. ciprofloxac 2020-0 Yes [id number] 500mg Take 1 [facility] in HCl 500 2-28 tablet by ity of mg tablet 00:00: mouth (two) Medical times Branch daily. metroNIDAZO 2020-0 Yes [id number] 500mg Take 1 [facility] LE 500 mg 2-28 tablet by ity o f tablet 00:00: mouth 2 (two) Medical times Branch daily. ciprofloxac 202-0 Yes [id number] 500mg Take 1 [facility] in HCl 500 2-28 tablet by ity of mg tablet 00:00: mouth 2 (two) Medical times Branch daily. metroNIDAZO 2020-0 Yes [id number] 500mg Take 1 [facility] LE 500 mg 2-28 tablet by ity o f tablet 00:00: mouth 2 (two) Medical times Branch daily. ciprofloxac 2021-0 Yes [id number] 500mg Take 1 [facility] in HCl 500 2-28 tablet by ity of mg tablet 00:00: mouth (two) Medical times Branch daily. metroNIDAZO 2021-0 Yes [id number] 500mg Take 1 [facility] LE 500 mg 2-28 tablet by ity o f tablet 00:00: mouth (two) Medical times Branch daily. ciprofloxac 2021-0 Yes [id number] 500mg Take 1 [facility] in HCl 500 2-28 tablet by ity of mg tablet 00:00: mouth (two) Medical times Branch daily. metroNIDAZO 2021-0 Yes [id number] 500mg Take 1 [facility] LE 500 mg 2-28 tablet by ity o f tablet 00:00: mouth (two) Medical times Branch daily. ciprofloxac 2021-0 Yes [id number] 500mg Take 1 [facility] in HCl 500 2-28 tablet by ity of mg tablet 00:00: mouth (two) Medical times Branch daily. metroNIDAZO 2021-0 Yes [id number] 500mg Take 1 [facility] LE 500 mg 2-28 tablet by ity o f tablet 00:00: mouth (two) Medical times Branch daily. ciprofloxac 1-0 Yes [id number] 500mg Take 1 [facility] in HCl 500 2-28 tablet by ity of mg tablet 00:00: mouth (two) Medical times Branch daily. metroNIDAZO 2021-0 Yes [id number] 500mg Take 1 [facility] LE 500 mg 2-28 tablet by ity o f tablet 00:00: mouth (two) Medical times Branch daily. ciprofloxac 2021-0 Yes [id number] 500mg Take 1 [facility] in HCl 500 2-28 tablet by ity of mg tablet 00:00: mouth (two) Medical times Branch daily. metroNIDAZO 2021-0 Yes [id number] 500mg Take 1 [facility] LE 500 mg 2-28 tablet by ity o f tablet 00:00: mouth (two) Medical times Branch daily. ciprofloxac 2021-0 Yes [id number] 500mg Take 1 [facility] in HCl 500 2-28 tablet by ity of mg tablet 00:00: mouth (two) Medical times Branch daily. metroNIDAZO 1-0 Yes [id number] 500mg Take 1 [facility] LE 500 mg 2-28 tablet by ity o f tablet 00:00: mouth (two) Medical times Branch daily. ciprofloxac 2021-0 Yes [id number] 500mg Take 1 [facility] in HCl 500 2-28 tablet by ity of mg tablet 00:00: mouth (two) Medical times Branch daily. metroNIDAZO 2020-0 Yes [id number] 500mg Take 1 [facility] LE 500 mg 2-28 tablet by ity o f tablet 00:00: mouth (two) Medical times Branch daily. ciprofloxac 1-0 Yes [id number] 500mg Take 1 [facility] in HCl 500 2-28 tablet by ity of mg tablet 00:00: mouth (two) Medical times Branch daily. metroNIDAZO 2020-0 Yes [id number] 500mg Take 1 [facility] LE 500 mg 2-28 tablet by ity o f tablet 00:00: mouth (two) Medical times Branch daily. ciprofloxac 2020-0 Yes [id number] 500mg Take 1 [facility] in HCl 500 2-28 tablet by ity of mg tablet 00:00: mouth (two) Medical times Branch daily. metroNIDAZO 2020-0 Yes [id number] 500mg Take 1 [facility] LE 500 mg 2-28 tablet by ity o f tablet 00:00: mouth (two) Medical times Branch daily. ciprofloxac 1-0 Yes [id number] 500mg Take 1 [facility] in HCl 500 2-28 tablet by ity of mg tablet 00:00: mouth (two) Medical times Branch daily. metroNIDAZO 1-0 Yes [id number] 500mg Take 1 [facility] LE 500 mg 2-28 tablet by ity o f tablet 00:00: mouth (two) Medical times Branch daily. ciprofloxac 2021-0 Yes [id number] 500mg Take 1 [facility] in HCl 500 2-28 tablet by ity of mg tablet 00:00: mouth (two) Medical times Branch daily. metroNIDAZO 2021-0 Yes [id number] 500mg Take 1 [facility] LE 500 mg 2-28 tablet by ity o f tablet 00:00: mouth (two) Medical times Branch daily. ciprofloxac 1-0 Yes [id number] 500mg Take 1 [facility] in HCl 500 2-28 tablet by ity of mg tablet 00:00: mouth (two) Medical times Branch daily. metroNIDAZO 1-0 Yes [id number] 500mg Take 1 [facility] LE 500 mg 2-28 tablet by ity o f tablet 00:00: mouth (two) Medical times Branch daily. ciprofloxac 2020-0 Yes [id number] 500mg Take 1 [facility] in HCl 500 2-28 tablet by ity of mg tablet 00:00: mouth (two) Medical times Branch daily. metroNIDAZO 1-0 Yes [id number] 500mg Take 1 [facility] LE 500 mg 2-28 tablet by ity o f tablet 00:00: mouth (two) Medical times Branch daily. ciprofloxac 2020-0 Yes [id number] 500mg Take 1 [facility] in HCl 500 2-28 tablet by ity of mg tablet 00:00: mouth (two) Medical times Branch daily. metroNIDAZO 1-0 Yes [id number] 500mg Take 1 [facility] LE 500 mg 2-28 tablet by ity o f tablet 00:00: mouth (two) Medical times Branch daily. ciprofloxac 1-0 Yes [id number] 500mg Take 1 [facility] in HCl 500 2-28 tablet by ity of mg tablet 00:00: mouth (two) Medical times Branch daily. metroNIDAZO 1-0 Yes [id number] 500mg Take 1 [facility] LE 500 mg 2-28 tablet by ity o f tablet 00:00: mouth (two) Medical times Branch daily. ciprofloxac 2021-0 Yes [id number] 500mg Take 1 [facility] in HCl 500 2-28 tablet by ity of mg tablet 00:00: mouth (two) Medical times Branch daily. metroNIDAZO 2021-0 Yes [id number] 500mg Take 1 [facility] LE 500 mg 2-28 tablet by ity o f tablet 00:00: mouth (two) Medical times Branch daily. ciprofloxac 2020-0 Yes [id number] 500mg Take 1 [facility] in HCl 500 2-28 tablet by ity of mg tablet 00:00: mouth (two) Medical times Branch daily. metroNIDAZO 2020-0 Yes [id number] 500mg Take 1 [facility] LE 500 mg 2-28 tablet by ity o f tablet 00:00: mouth (two) Medical times Branch daily. ciprofloxac 2020-0 Yes [id number] 500mg Take 1 [facility] in HCl 500 2-28 tablet by ity of mg tablet 00:00: mouth (two) Medical times Branch daily. metroNIDAZO 2020-0 Yes [id number] 500mg Take 1 [facility] LE 500 mg 2-28 tablet by ity o f tablet 00:00: mouth (two) Medical times Branch daily. ciprofloxac 2020-0 Yes [id number] 500mg Take 1 [facility] in HCl 500 2-28 tablet by ity of mg tablet 00:00: mouth (two) Medical times Branch daily. metroNIDAZO 2020-0 Yes [id number] 500mg Take 1 [facility] LE 500 mg 2-28 tablet by ity o f tablet 00:00: mouth (two) Medical times Branch daily. ciprofloxac 2020-0 Yes [id number] 500mg Take 1 [facility] in HCl 500 2-28 tablet by ity of mg tablet 00:00: mouth (two) Medical times Branch daily. metroNIDAZO 2020-0 Yes [id number] 500mg Take 1 [facility] LE 500 mg 2-28 tablet by ity o f tablet 00:00: mouth (two) Medical times Branch daily. ciprofloxac 2020-0 Yes [id number] 500mg Take 1 [facility] in HCl 500 2-28 tablet by ity of mg tablet 00:00: mouth (two) Medical times Branch daily. metroNIDAZO 2020-0 Yes [id number] 500mg Take 1 [facility] LE 500 mg [...] 7 days. Indication s: acute pain gabapentin 2021-0 Yes [id number] 300mg Take 3 [facility] 100 mg 2-05 [id number] capsules [facility]y [facility] capsule 00:00: [place] mouth 3 [place] 00 (three) Medical times Branch daily. gabapentin 202-0 Yes [id number] 300mg Take 3 [facility] 100 mg 2-05 [id number] capsules ity of capsule 00:00: by mouth 3 [place] 00 (three) Medical times Branch daily. gabapentin 2021-0 Yes [id number] 300mg Take 3 [facility] 100 mg 2-05 [id number] capsules ity of capsule 00:00: by mouth 3 [place] 00 (three) Medical times Branch daily. gabapentin 202-0 Yes [id number] 300mg Take 3 [facility] 100 mg 2-05 [id number] capsules ity of capsule 00:00: by mouth 3 [place] 00 (three) Medical times Branch daily. gabapentin 202-0 Yes [id number] 300mg Take 3 [facility] 100 mg 2-05 [id number] capsules [facility]y of capsule 00:00: by mouth 3 [place] 00 (three) Medical times Branch daily. gabapentin 202-0 Yes [id number] 300mg Take 3 [facility] 100 mg 2-05 [id number] capsules ity of capsule 00:00: by mouth 3 [place] 00 (three) Medical times Branch daily. gabapentin 2021-0 Yes [id number] 300mg Take 3 [facility] 100 mg 2-05 [id number] capsules ity of capsule 00:00: by mouth 3 [place] 00 (three) Medical times Branch daily. gabapentin 2021-0 Yes [id number] 300mg Take 3 [facility] 100 mg 2-05 [id number] capsules [facility] of capsule 00:00: by mouth 3 [place] 00 (three) Medical times Branch daily. gabapentin 2021-0 Yes [id number] 300mg Take 3 [facility] 100 mg 2-05 [id number] capsules ity of capsule 00:00: by mouth 3 [place] 00 (three) Medical times Branch daily. gabapentin 2021-0 Yes [id number] 300mg Take 3 [facility] 100 mg 2-05 [id number] capsules ity of capsule 00:00: by mouth 3 [place] 00 (three) Medical times Branch daily. gabapentin 2021-0 Yes [id number] 300mg Take 3 [facility] 100 mg 2-05 [id number] capsules ity of capsule 00:00: by mouth 3 [place] 00 (three) Medical times Branch daily. gabapentin 2021-0 Yes [id number] 300mg Take 3 [facility] 100 mg 2-05 [id number] capsules ity of capsule 00:00: by mouth 3 [place] 00 (three) Medical times Branch daily. gabapentin 2021-0 Yes [id number] 300mg Take 3 [facility] 100 mg 2-05 [id number] capsules ity of capsule 00:00: by mouth 3 [place] 00 (three) Medical times Branch daily. gabapentin 2021-0 Yes [id number] 300mg Take 3 [facility] 100 mg 2-05 [id number] capsules ity of capsule 00:00: by mouth 3 [place] 00 (three) Medical times Branch daily. gabapentin 2021-0 Yes [id number] 300mg Take 3 [facility] 100 mg 2-05 [id number] capsules [facility] of capsule 00:00: by mouth 3 [place] 00 (three) Medical times Branch daily. gabapentin 2021-0 Yes [id number] 300mg Take 3 [facility] 100 mg 2-05 [id number] capsules [facility]y of capsule 00:00: by mouth 3 [place] 00 (three) Medical times Branch daily. gabapentin 2021-0 Yes [id number] 300mg Take 3 [facility] 100 mg 2-05 [id number] capsules [facility]y of capsule 00:00: by mouth 3 [place] 00 (three) Medical times Branch daily. gabapentin 2021-0 Yes [id number] 300mg Take 3 [facility] 100 mg 2-05 [id number] capsules [facility]y of capsule 00:00: by mouth 3 [place] 00 (three) Medical times Branch daily. gabapentin 2021-0 Yes [id number] 300mg Take 3 [facility] 100 mg 2-05 [id number] capsules [facility]y of capsule 00:00: by mouth 3 [place] 00 (three) Medical times Branch daily. gabapentin 2021-0 Yes [id number] 300mg Take 3 [facility] 100 mg 2-05 [id number] capsules ity of capsule 00:00: by mouth 3 [place] 00 (three) Medical times Branch daily. gabapentin 2021-0 Yes [id number] 300mg Take 3 [facility] 100 mg 2-05 [id number] capsules [facility]y of capsule 00:00: by mouth 3 [place] 00 (three) Medical times Branch daily. gabapentin 2021-0 Yes [id number] 300mg Take 3 [facility] 100 mg 2-05 [id number] capsules [facility] of capsule 00:00: by mouth 3 [place] 00 (three) Medical times Branch daily. gabapentin 2021-0 Yes [id number] 300mg Take 3 [facility] 100 mg 2-05 [id number] capsules [facility]y of capsule 00:00: by mouth 3 [place] 00 (three) Medical times Branch daily. gabapentin 2021-0 Yes [id number] 300mg Take 3 [facility] 100 mg 2-05 [id number] capsules [facility]y of capsule 00:00: by mouth 3 [place] 00 (three) Medical times Branch daily. gabapentin 2021-0 Yes [id number] 300mg Take 3 [facility] 100 mg 2-05 [id number] capsules [facility]y of capsule 00:00: by mouth 3 [place] 00 (three) Medical times Branch daily. gabapentin 2021-0 Yes [id number] 300mg Take 3 [facility] 100 mg 2-05 [id number] capsules [facility] of capsule 00:00: by mouth 3 [place] 00 (three) Medical times Branch daily. gabapentin 2021-0 Yes [id number] 300mg Take 3 [facility] 100 mg 2-05 [id number] capsules [facility]y of capsule 00:00: by mouth 3 [place] 00 (three) Medical times Branch daily. gabapentin 2021-0 Yes [id number] 300mg Take 3 [facility] 100 mg 2-05 [id number] capsules [facility]y of capsule 00:00: by mouth 3 [place] 00 (three) Medical times Branch daily. gabapentin 2021-0 Yes [id number] 300mg Take 3 [facility] 100 mg 1-05 [id number] capsules [facility] of capsule 00:00: by mouth 3 [place] 00 (three) Medical times Branch daily. gabapentin 2021-0 Yes [id number] 300mg Take 3 [facility] 100 mg 1-05 [id number] capsules [facility] of capsule 00:00: by mouth 3 [place] 00 (three) Medical times Branch daily. gabapentin 2021-0 Yes [id number] 300mg Take 3 [facility] 100 mg 1-05 [id number] capsules [facility] of capsule 00:00: by mouth 3 [place] 00 (three) Medical times Branch daily. gabapentin 2021-0 Yes [id number] 300mg Take 3 [facility] 100 mg 1-05 [id number] capsules [facility] of capsule 00:00: by mouth 3 [place] 00 (three) Medical times Branch daily. gabapentin 202-0 Yes [id number] 300mg Take 3 [facility] 100 mg 1-05 [id number] capsules [facility] of capsule 00:00: by mouth 3 [place] 00 (three) Medical times Branch daily. gabapentin 202-0 Yes [id number] 300mg Take 3 [facility] 100 mg 1-05 [id number] capsules [facility]y of capsule 00:00: by mouth 3 [place] 00 (three) Medical times Branch daily. gabapentin 2020-0 Yes [id number] 300mg Take 3 [facility] 100 mg 1-05 [id number] capsules [facility]y of capsule 00:00: by mouth 3 [place] 00 (three) Medical times Branch daily. gabapentin 2020-0 Yes [id number] 300mg Take 3 [facility] 100 mg 1-05 [id number] capsules [facility]y of capsule 00:00: by mouth 3 [place] 00 (three) Medical times Branch daily. gabapentin 2020-0 Yes [id number] 300mg Take 3 [facility] 100 mg 1-05 [id number] capsules [facility]y of capsule 00:00: by mouth 3 [place] 00 (three) Medical times Branch daily. gabapentin 2020-0 Yes [id number] 300mg Take 3 [facility] 100 mg 1-05 [id number] capsules [facility]y of capsule 00:00: by mouth 3 [place] 00 (three) Medical times Branch daily. gabapentin 2020-0 Yes [id number] 300mg Take 3 [facility] 100 mg 1-05 [id number] capsules [facility]y of capsule 00:00: by mouth 3 [place] 00 (three) Medical times Branch daily. gabapentin 2020-0 Yes [id number] 300mg Take 3 [facility] 100 mg 1-05 [id number] capsules [facility]y of capsule 00:00: by mouth 3 [place] 00 (three) Medical times Branch daily. gabapentin 202-0 Yes [id number] 300mg Take 3 [facility] 100 mg 1-05 [id number] capsules [facility]y of capsule 00:00: by mouth 3 [place] 00 (three) Medical times Branch daily. gabapentin 2020-0 2021- No [id number] 300mg Take 3 [facility] 100 mg 1-05 02-05 [id number] capsules ity of capsule 00:00: 00:00 by mouth 3 [place] 00 :00 (three) Medical times Branch daily. DEXILANT 60 2019-09 Yes [id number] 60mg TAKE 1 [facility] mg capsule 2-22 CAPSULE BY ity of 00:00: MOUTH [place] 00 DAILY. Medical STOP Branch ESOMEPRAZO LE. DEXILANT 60 2019-09 Yes [id number] 60mg TAKE 1 [facility] mg capsule 2-22 CAPSULE BY ity of 00:00: MOUTH [place] 00 DAILY. Medical STOP Branch ESOMEPRAZO LE. DEXILANT 60 2019-09 Yes [id number] 60mg TAKE 1 [facility] mg capsule 2-22 CAPSULE BY ity of 00:00: MOUTH [place] 00 DAILY. Medical STOP Branch ESOMEPRAZO LE. DEXILANT 60 2019-09 Yes [id number] 60mg TAKE 1 [facility] mg capsule 2-22 CAPSULE BY ity of 00:00: MOUTH [place] 00 DAILY. Medical STOP Branch ESOMEPRAZO LE. DEXILANT 60 2019-09 Yes [id number] 60mg TAKE 1 [facility] mg capsule 2-22 CAPSULE BY ity of 00:00: MOUTH [place] 00 DAILY. Medical STOP Branch ESOMEPRAZO LE. DEXILANT 60 2019-09 Yes [id number] 60mg TAKE 1 [facility] mg capsule 2-22 CAPSULE BY ity of 00:00: MOUTH [place] 00 DAILY. Medical STOP Branch ESOMEPRAZO LE. DEXILANT 60 2019-09 Yes [id number] 60mg TAKE 1 [facility] mg capsule 2-22 CAPSULE BY ity of 00:00: MOUTH [place] 00 DAILY. Medical STOP Branch ESOMEPRAZO LE. DEXILANT 60 2019-09 Yes [id number] 60mg TAKE 1 [facility] mg capsule 2-22 CAPSULE BY ity of 00:00: MOUTH [place] 00 DAILY. Medical STOP Branch ESOMEPRAZO LE. DEXILANT 60 2019-09 Yes [id number] 60mg TAKE 1 [facility] mg capsule 2-22 CAPSULE BY ity of 00:00: MOUTH [place] 00 DAILY. Medical STOP Branch ESOMEPRAZO LE. DEXILANT 60 2019-09 Yes [id number] 60mg TAKE 1 [facility] mg capsule 2-22 CAPSULE BY ity of 00:00: MOUTH [place] 00 DAILY. Medical STOP Branch ESOMEPRAZO LE. DEXILANT 60 2019-09 Yes [id number] 60mg TAKE 1 [facility] mg capsule 2-22 CAPSULE BY ity of 00:00: MOUTH [place] 00 DAILY. Medical STOP Branch ESOMEPRAZO LE. DEXILANT 60 2019-09 Yes [id number] 60mg TAKE 1 [facility] mg capsule 2-22 CAPSULE BY ity of 00:00: MOUTH [place] 00 DAILY. Medical STOP Branch ESOMEPRAZO LE. DEXILANT 60 2019- Yes [id number] 60mg TAKE 1 [facility] mg capsule 2-22 CAPSULE BY ity of 00:00: MOUTH [place] 00 DAILY. Medical STOP Branch ESOMEPRAZO LE. DEXILANT 60 2019- Yes [id number] 60mg TAKE 1 [facility] mg capsule 2-22 CAPSULE BY ity of 00:00: MOUTH [place] 00 DAILY. Medical STOP Branch ESOMEPRAZO LE. DEXILANT 60 2019- Yes [id number] 60mg TAKE 1 [facility] mg capsule 2-22 CAPSULE BY ity of 00:00: MOUTH [place] 00 DAILY. Medical STOP Branch ESOMEPRAZO LE. DEXILANT 60 2019- Yes [id number] 60mg TAKE 1 [facility] mg capsule 2-22 CAPSULE BY ity of 00:00: MOUTH [place] 00 DAILY. Medical STOP Branch ESOMEPRAZO LE. DEXILANT 60 2019- Yes [id number] 60mg TAKE 1 [facility] mg capsule 2-22 CAPSULE BY ity of 00:00: MOUTH [place] 00 DAILY. Medical STOP Branch ESOMEPRAZO LE. DEXILANT 60 2019-09 Yes [id number] 60mg TAKE 1 [facility] mg capsule 2-22 CAPSULE BY ity of 00:00: MOUTH [place] 00 DAILY. Medical STOP Branch ESOMEPRAZO LE. DEXILANT 60 2019- Yes [id number] 60mg TAKE 1 [facility] mg capsule 2-22 CAPSULE BY ity of 00:00: MOUTH [place] 00 DAILY. Medical STOP Branch ESOMEPRAZO LE. DEXILANT 60 2019- Yes [id number] 60mg TAKE 1 [facility] mg capsule 2-22 CAPSULE BY ity of 00:00: MOUTH [place] 00 DAILY. Medical STOP Branch ESOMEPRAZO LE. DEXILANT 60 2019-09 Yes [id number] 60mg TAKE 1 [facility] mg capsule 2-22 CAPSULE BY ity of 00:00: MOUTH [place] 00 DAILY. Medical STOP Branch ESOMEPRAZO LE. DEXILANT 60 2019- Yes [id number] 60mg TAKE 1 [facility] mg capsule 2-22 CAPSULE BY [facility] 00:00: MOUTH [place] 00 DAILY. Medical STOP Branch ESOMEPRAZO LE. DEXILANT 60 2019- Yes [id number] 60mg TAKE 1 [facility] mg capsule 2-22 CAPSULE BY [facility] 00:00: MOUTH [place] 00 DAILY. Medical STOP Branch ESOMEPRAZO LE. DEXILANT 60 2020- Yes [id number] 60mg TAKE 1 [facility] mg capsule 2-22 CAPSULE BY [facility] 00:00: MOUTH [place] 00 DAILY. Medical STOP Branch ESOMEPRAZO LE. DEXILANT 60 2020- Yes [id number] 60mg TAKE 1 [facility] mg capsule 2-22 CAPSULE BY [facility] 00:00: MOUTH [place] 00 DAILY. Medical STOP Branch ESOMEPRAZO LE. DEXILANT 60 2019- Yes [id number] 60mg TAKE 1 [facility] mg capsule 2-22 CAPSULE BY [facility] of 00:00: MOUTH [place] 00 DAILY. Medical STOP Branch ESOMEPRAZO LE. DEXILANT 60 2019- Yes [id number] 60mg TAKE 1 [facility] mg capsule 2-22 CAPSULE BY [facility] 00:00: MOUTH [place] 00 DAILY. Medical STOP Branch ESOMEPRAZO LE. DEXILANT 60 2019-09 Yes [id number] 60mg TAKE 1 [facility] mg capsule 2-22 CAPSULE BY [facility] 00:00: MOUTH [place] 00 DAILY. Medical STOP Branch ESOMEPRAZO LE. DEXILANT 60 2019- Yes [id number] 60mg TAKE 1 [facility] mg capsule 2-22 CAPSULE BY [facility] 00:00: MOUTH [place] 00 DAILY. Medical STOP Branch ESOMEPRAZO LE. DEXILANT 60 2019- Yes [id number] 60mg TAKE 1 [facility] mg capsule 2-22 CAPSULE BY [facility] 00:00: MOUTH [place] 00 DAILY. Medical STOP Branch ESOMEPRAZO LE. DEXILANT 60 2019- Yes [id number] 60mg TAKE 1 [facility] mg capsule 2-22 CAPSULE BY [facility] 00:00: MOUTH [place] 00 DAILY. Medical STOP Branch ESOMEPRAZO LE. DEXILANT 60 2019- Yes [id number] 60mg TAKE 1 [facility] mg capsule 2-22 CAPSULE BY [facility] 00:00: MOUTH [place] 00 DAILY. Medical STOP Branch ESOMEPRAZO LE. DEXILANT 60 2020- Yes [id number] 60mg TAKE 1 [facility] mg capsule 2-22 CAPSULE BY [facility] of 00:00: MOUTH [place] 00 DAILY. Medical STOP Branch ESOMEPRAZO LE. DEXILANT 60 2020- Yes [id number] 60mg TAKE 1 [facility] mg capsule 2-22 CAPSULE BY [facility] 00:00: MOUTH [place] 00 DAILY. Medical STOP Branch ESOMEPRAZO LE. DEXILANT 60 2019-09 Yes [id number] 60mg TAKE 1 [facility] mg capsule 2-22 CAPSULE BY [facility] 00:00: MOUTH [place] 00 DAILY. Medical STOP Branch ESOMEPRAZO LE. DEXILANT 60 2019-09 Yes [id number] 60mg TAKE 1 [facility] mg capsule 2-22 CAPSULE BY [facility] 00:00: MOUTH [place] 00 DAILY. Medical STOP Branch ESOMEPRAZO LE. DEXILANT 60 2019-09 Yes [id number] 60mg TAKE 1 [facility] mg capsule 2-22 CAPSULE BY [facility] of 00:00: MOUTH [place] 00 DAILY. Medical STOP Branch ESOMEPRAZO LE. DEXILANT 60 2019-09- No [id number] 60mg TAKE 1 [facility] mg capsule 2-22 08-18 CAPSULE BY it y of 00:00: 00:00 MOUTH [place] 00 :00 DAILY. Medical STOP Branch ESOMEPRAZO LE. thiamine 2019-09 Yes [id number] 100mg Take 1 [facility] 100 mg 2-16 tablet by [facility] tablet 00:00: mouth [place] 00 daily. Medical Branch Ferrous 2019-09 Yes [id number] 142mg Take 1 [facility] vers Sulfate 2-16 tablet by [facility] of (SLOW FE) 00:00: mouth [place] 142 mg (45 00 daily. Medical mg iron) Branch tablet thiamine 2019-09 Yes [id number] 100mg Take 1 [facility] 100 mg 2-16 tablet by [facility] of tablet 00:00: mouth [place] 00 daily. Medical Branch Ferrous 2019- Yes [id number] 142mg Take 1 [facility] vers Sulfate 2-16 tablet by [facility] of (SLOW FE) 00:00: mouth [place] 142 mg (45 00 daily. Medical mg iron) Branch tablet thiamine 2019-09 Yes [id number] 100mg Take 1 [facility] 100 mg 2-16 tablet by [facility] tablet 00:00: mouth [place] 00 daily. Medical Branch Ferrous 2019- Yes [id number] 142mg Take 1 [facility] vers Sulfate 2-16 tablet by [facility] of (SLOW FE) 00:00: mouth [place] 142 mg (45 00 daily. Medical mg iron) Branch tablet thiamine 2019-09 Yes [id number] 100mg Take 1 [facility] 100 mg 2-16 tablet by [facility] tablet 00:00: mouth [place] 00 daily. Medical Branch Ferrous 2019- Yes [id number] 142mg Take 1 [facility] vers Sulfate 2-16 tablet by [facility] of (SLOW FE) 00:00: mouth [place] 142 mg (45 00 daily. Medical mg iron) Branch tablet thiamine 2019- Yes [id number] 100mg Take 1 [facility] 100 mg 2-16 tablet by [facility] tablet 00:00: mouth [place] 00 daily. Medical Branch Ferrous 2020- Yes [id number] 142mg Take 1 [facility] vers Sulfate 2-16 tablet by [facility] of (SLOW FE) 00:00: mouth [place] 142 mg (45 00 daily. Medical mg iron) Branch tablet thiamine 2019- Yes [id number] 100mg Take 1 [facility] 100 mg 2-16 tablet by [facility] of tablet 00:00: mouth [place] 00 daily. Medical Branch Ferrous 2020- Yes [id number] 142mg Take 1 [facility] vers Sulfate 2-16 tablet by [facility] of (SLOW FE) 00:00: mouth [place] 142 mg (45 00 daily. Medical mg iron) Branch tablet thiamine 2019-09 Yes [id number] 100mg Take 1 [facility] 100 mg 2-16 tablet by [facility] of tablet 00:00: mouth [place] 00 daily. Medical Branch Ferrous 2020- Yes [id number] 142mg Take 1 [facility] vers Sulfate 2-16 tablet by [facility] of (SLOW FE) 00:00: mouth [place] 142 mg (45 00 daily. Medical mg iron) Branch tablet thiamine 2019-09 Yes [id number] 100mg Take 1 [facility] 100 mg 2-16 tablet by [facility] of tablet 00:00: mouth [place] 00 daily. Medical Branch Ferrous 2020- Yes [id number] 142mg Take 1 [facility] vers Sulfate 2-16 tablet by [facility] of (SLOW FE) 00:00: mouth [place] 142 mg (45 00 daily. Medical mg iron) Branch tablet thiamine 2019- Yes [id number] 100mg Take 1 [facility] 100 mg 2-16 tablet by [facility] tablet 00:00: mouth [place] 00 daily. Medical Branch Ferrous 2020- Yes [id number] 142mg Take 1 [facility] vers Sulfate 2-16 tablet by [facility] of (SLOW FE) 00:00: mouth [place] 142 mg (45 00 daily. Medical mg iron) Branch tablet thiamine 2019- Yes [id number] 100mg Take 1 [facility] 100 mg 2-16 tablet by [facility] of tablet 00:00: mouth [place] 00 daily. Medical Branch Ferrous 2020- Yes [id number] 142mg Take 1 [facility] vers Sulfate 2-16 tablet by [facility] of (SLOW FE) 00:00: mouth [place] 142 mg (45 00 daily. Medical mg iron) Branch tablet thiamine 2019-09 Yes [id number] 100mg Take 1 [facility] 100 mg 2-16 tablet by [facility] of tablet 00:00: mouth [place] 00 daily. Medical Branch Ferrous 2020- Yes [id number] 142mg Take 1 [facility] vers Sulfate 2-16 tablet by [facility] of (SLOW FE) 00:00: mouth [place] 142 mg (45 00 daily. Medical mg iron) Branch tablet thiamine 2019-09 Yes [id number] 100mg Take 1 [facility] 100 mg 2-16 tablet by [facility] of tablet 00:00: mouth [place] 00 daily. Medical Branch Ferrous 2019- Yes [id number] 142mg Take 1 [facility] vers Sulfate 2-16 tablet by [facility] of (SLOW FE) 00:00: mouth [place] 142 mg (45 00 daily. Medical mg iron) Branch tablet thiamine 2019-09 Yes [id number] 100mg Take 1 [facility] 100 mg 2-16 tablet by [facility] of tablet 00:00: mouth [place] 00 daily. Medical Branch Ferrous 2019- Yes [id number] 142mg Take 1 [facility] vers Sulfate 2-16 tablet by [facility] of (SLOW FE) 00:00: mouth [place] 142 mg (45 00 daily. Medical mg iron) Branch tablet thiamine 2019-09 Yes [id number] 100mg Take 1 [facility] 100 mg 2-16 tablet by [facility] of tablet 00:00: mouth [place] 00 daily. Medical Branch Ferrous 2019- Yes [id number] 142mg Take 1 [facility] vers Sulfate 2-16 tablet by [facility] of (SLOW FE) 00:00: mouth [place] 142 mg (45 00 daily. Medical mg iron) Branch tablet thiamine 2019-09 Yes [id number] 100mg Take 1 [facility] 100 mg 2-16 tablet by [facility] of tablet 00:00: mouth [place] 00 daily. Medical Branch Ferrous 2020- Yes [id number] 142mg Take 1 [facility] vers Sulfate 2-16 tablet by [facility] of (SLOW FE) 00:00: mouth [place] 142 mg (45 00 daily. Medical mg iron) Branch tablet thiamine 2019- Yes [id number] 100mg Take 1 [facility] 100 mg 2-16 tablet by [facility] tablet 00:00: mouth [place] 00 daily. Medical Branch Ferrous 2020- Yes [id number] 142mg Take 1 [facility] vers Sulfate 2-16 tablet by [facility] of (SLOW FE) 00:00: mouth [place] 142 mg (45 00 daily. Medical mg iron) Branch tablet thiamine 2019-09 Yes [id number] 100mg Take 1 [facility] 100 mg 2-16 tablet by [facility] tablet 00:00: mouth [place] 00 daily. Medical Branch Ferrous 2020- Yes [id number] 142mg Take 1 [facility] vers Sulfate 2-16 tablet by [facility] of (SLOW FE) 00:00: mouth [place] 142 mg (45 00 daily. Medical mg iron) Branch tablet thiamine 2019-09 Yes [id number] 100mg Take 1 [facility] 100 mg 2-16 tablet by [facility] of tablet 00:00: mouth [place] 00 daily. Medical Branch Ferrous 2019- Yes [id number] 142mg Take 1 [facility] vers Sulfate 2-16 tablet by [facility] of (SLOW FE) 00:00: mouth [place] 142 mg (45 00 daily. Medical mg iron) Branch tablet thiamine 2019-09 Yes [id number] 100mg Take 1 [facility] 100 mg 2-16 tablet by [facility] of tablet 00:00: mouth [place] 00 daily. Medical Branch Ferrous 2019- Yes [id number] 142mg Take 1 [facility] vers Sulfate 2-16 tablet by [facility] of (SLOW FE) 00:00: mouth [place] 142 mg (45 00 daily. Medical mg iron) Branch tablet thiamine 2019-09 Yes [id number] 100mg Take 1 [facility] 100 mg 2-16 tablet by [facility] of tablet 00:00: mouth [place] 00 daily. Medical Branch Ferrous 2019- Yes [id number] 142mg Take 1 [facility] vers Sulfate 2-16 tablet by [facility] of (SLOW FE) 00:00: mouth [place] 142 mg (45 00 daily. Medical mg iron) Branch tablet thiamine 2019-09 Yes [id number] 100mg Take 1 [facility] 100 mg 2-16 tablet by [facility] of tablet 00:00: mouth [place] 00 daily. Medical Branch Ferrous 2020- Yes [id number] 142mg Take 1 [facility] vers Sulfate 2-16 tablet by [facility] of (SLOW FE) 00:00: mouth [place] 142 mg (45 00 daily. Medical mg iron) Branch tablet thiamine 2019-09 Yes [id number] 100mg Take 1 [facility] 100 mg 2-16 tablet by [facility] of tablet 00:00: mouth [place] 00 daily. Medical Branch Ferrous 2020- Yes [id number] 142mg Take 1 [facility] vers Sulfate 2-16 tablet by [facility] of (SLOW FE) 00:00: mouth [place] 142 mg (45 00 daily. Medical mg iron) Branch tablet thiamine 2019-09 Yes [id number] 100mg Take 1 [facility] 100 mg 2-16 tablet by [facility] of tablet 00:00: mouth [place] 00 daily. Medical Branch Ferrous 2020- Yes [id number] 142mg Take 1 [facility] vers Sulfate 2-16 tablet by [facility] of (SLOW FE) 00:00: mouth [place] 142 mg (45 00 daily. Medical mg iron) Branch tablet thiamine 2019-09 Yes [id number] 100mg Take 1 [facility] 100 mg 2-16 tablet by [facility] of tablet 00:00: mouth [place] 00 daily. Medical Branch Ferrous 2019- Yes [id number] 142mg Take 1 [facility] vers Sulfate 2-16 tablet by [facility] of (SLOW FE) 00:00: mouth [place] 142 mg (45 00 daily. Medical mg iron) Branch tablet thiamine 2019-09 Yes [id number] 100mg Take 1 [facility] 100 mg 2-16 tablet by [facility] of tablet 00:00: mouth [place] 00 daily. Medical Branch Ferrous 2019- Yes [id number] 142mg Take 1 [facility] vers Sulfate 2-16 tablet by [facility] of (SLOW FE) 00:00: mouth [place] 142 mg (45 00 daily. Medical mg iron) Branch tablet thiamine 2019-09 Yes [id number] 100mg Take 1 [facility] 100 mg 2-16 tablet by [facility] of tablet 00:00: mouth [place] 00 daily. Medical Branch Ferrous 2020- Yes [id number] 142mg Take 1 [facility] vers Sulfate 2-16 tablet by [facility] of (SLOW FE) 00:00: mouth [place] 142 mg (45 00 daily. Medical mg iron) Branch tablet thiamine 2019-09 Yes [id number] 100mg Take 1 [facility] 100 mg 2-16 tablet by [facility] of tablet 00:00: mouth [place] 00 daily. Medical Branch Ferrous 2020- Yes [id number] 142mg Take 1 [facility] vers Sulfate 2-16 tablet by [facility] of (SLOW FE) 00:00: mouth [place] 142 mg (45 00 daily. Medical mg iron) Branch tablet thiamine 2019-09 Yes [id number] 100mg Take 1 [facility] 100 mg 2-16 tablet by [facility] of tablet 00:00: mouth [place] 00 daily. Medical Branch Ferrous 2020- Yes [id number] 142mg Take 1 [facility] vers Sulfate 2-16 tablet by [facility] of (SLOW FE) 00:00: mouth [place] 142 mg (45 00 daily. Medical mg iron) Branch tablet thiamine 2019-09 Yes [id number] 100mg Take 1 [facility] 100 mg 2-16 tablet by [facility] of tablet 00:00: mouth [place] 00 daily. Medical Branch Ferrous 2020- Yes [id number] 142mg Take 1 [facility] vers Sulfate 2-16 tablet by [facility] of (SLOW FE) 00:00: mouth [place] 142 mg (45 00 daily. Medical mg iron) Branch tablet thiamine 2019-09 Yes [id number] 100mg Take 1 [facility] 100 mg 2-16 tablet by [facility] of tablet 00:00: mouth [place] 00 daily. Medical Branch Ferrous 2019- Yes [id number] 142mg Take 1 [facility] vers Sulfate 2-16 tablet by [facility] of (SLOW FE) 00:00: mouth [place] 142 mg (45 00 daily. Medical mg iron) Branch tablet thiamine 2019-09 Yes [id number] 100mg Take 1 [facility] 100 mg 2-16 tablet by [facility] of tablet 00:00: mouth [place] 00 daily. Medical Branch Ferrous 2019- Yes [id number] 142mg Take 1 [facility] vers Sulfate 2-16 tablet by [facility]y of (SLOW FE) 00:00: mouth [place] 142 mg (45 00 daily. Medical mg iron) Branch tablet thiamine 2019-09 Yes [id number] 100mg Take 1 [facility] 100 mg 2-16 tablet by [facility] of tablet 00:00: mouth [place] 00 daily. Medical Branch Ferrous 2020- Yes [id number] 142mg Take 1 [facility] vers Sulfate 2-16 tablet by [facility]y of (SLOW FE) 00:00: mouth [place] 142 mg (45 00 daily. Medical mg iron) Branch tablet thiamine 2019-09 Yes [id number] 100mg Take 1 [facility] 100 mg 2-16 tablet by [facility] of tablet 00:00: mouth [place] 00 daily. Medical Branch Ferrous 2020- Yes [id number] 142mg Take 1 [facility] vers Sulfate 2-16 tablet by [facility] of (SLOW FE) 00:00: mouth [place] 142 mg (45 00 daily. Medical mg iron) Branch tablet thiamine 2019-09 Yes [id number] 100mg Take 1 [facility] 100 mg 2-16 tablet by [facility] of tablet 00:00: mouth [place] 00 daily. Medical Branch Ferrous 2020- Yes [id number] 142mg Take 1 [facility] vers Sulfate 2-16 tablet by [facility] of (SLOW FE) 00:00: mouth [place] 142 mg (45 00 daily. Medical mg iron) Branch tablet thiamine 2019-09 Yes [id number] 100mg Take 1 [facility] 100 mg 2-16 tablet by [facility] of tablet 00:00: mouth [place] 00 daily. Medical Branch Ferrous 2020- Yes [id number] 142mg Take 1 [facility] vers Sulfate 2-16 tablet by [facility] of (SLOW FE) 00:00: mouth [place] 142 mg (45 00 daily. Medical mg iron) Branch tablet thiamine 2019-09 Yes [id number] 100mg Take 1 [facility] 100 mg 2-16 tablet by [facility] of tablet 00:00: mouth [place] 00 daily. Medical Branch Ferrous 2019-09 Yes [id number] 142mg Take 1 [facility] vers Sulfate 2-16 tablet by ity of (SLOW FE) 00:00: mouth [place] 142 mg (45 00 daily. Medical mg iron) Branch tablet thiamine 2019-09 Yes [id number] 100mg Take 1 [facility] 100 mg 2-16 tablet by [facility] of tablet 00:00: mouth [place] 00 daily. Medical Branch Ferrous 2019-09 Yes [id number] 142mg Take 1 [facility] vers Sulfate 2-16 tablet by [facility]y of (SLOW FE) 00:00: mouth [place] 142 mg (45 00 daily. Medical mg iron) Branch tablet thiamine 2019-09 Yes [id number] 100mg Take 1 [facility] 100 mg 2-16 tablet by [facility] of tablet 00:00: mouth [place] 00 daily. Medical Branch Ferrous 2019- Yes [id number] 142mg Take 1 [facility] vers Sulfate 2-16 tablet by [facility]y of (SLOW FE) 00:00: mouth [place] 142 mg (45 00 daily. Medical mg iron) Branch tablet thiamine 2019-09 Yes [id number] 100mg Take 1 [facility] 100 mg 2-16 tablet by [facility] of tablet 00:00: mouth [place] 00 daily. Medical Branch Ferrous 2020- Yes [id number] 142mg Take 1 [facility] vers Sulfate 2-16 tablet by [facility] of (SLOW FE) 00:00: mouth [place] 142 mg (45 00 daily. Medical mg iron) Branch tablet thiamine 2019-09 Yes [id number] 100mg Take 1 [facility] 100 mg 2-16 tablet by [facility] of tablet 00:00: mouth [place] 00 daily. Medical Branch Ferrous 2020- Yes [id number] 142mg Take 1 [facility] vers Sulfate 2-16 tablet by [facility]y of (SLOW FE) 00:00: mouth [place] 142 mg (45 00 daily. Medical mg iron) Branch tablet thiamine 2019-09 Yes [id number] 100mg Take 1 [facility] 100 mg 2-16 tablet by [facility] of tablet 00:00: mouth [place] 00 daily. Medical Branch Ferrous 2019-09 Yes [id number] 142mg Take 1 [facility] vers Sulfate 2-16 tablet by ity of (SLOW FE) 00:00: mouth [place] 142 mg (45 00 daily. Medical mg iron) Branch tablet thiamine 2019-09 Yes [id number] 100mg Take 1 [facility] 100 mg 2-16 tablet by [facility] of tablet 00:00: mouth [place] 00 daily. Medical Branch Ferrous 2019-09 Yes [id number] 142mg Take 1 [facility] vers Sulfate 2-16 tablet by ity of (SLOW FE) 00:00: mouth [place] 142 mg (45 00 daily. Medical mg iron) Branch tablet thiamine 2019-09 Yes [id number] 100mg Take 1 [facility] 100 mg 2-16 tablet by [facility] of tablet 00:00: mouth [place] 00 daily. Medical Branch Ferrous 2019-09 Yes [id number] 142mg Take 1 [facility] vers Sulfate 2-16 tablet by it[facility] of (SLOW FE) 00:00: mouth [place] 142 mg (45 00 daily. Medical mg iron) Branch tablet gabapentin 2019-09 2020- No 100mg 100 mg, [facility] [place] (NEURONTIN) 2-15 12-15 Oral, [facility] capsule 100 05:30: 04:36 ONCE, 1 [place] 00 :00 dose, [facility], [place] 08/30/20 Branch at 2330, Routine CLOPIDOGREL 2019-09 Yes [id number] TAKE 1 [facility] 75 mg 2-15 [id number] TABLET BY it[facility] of tablet 00:00: MOUTH [place] 00 EVERY DAY Medical Branch CLOPIDOGREL 2019- Yes [id number] TAKE 1 [facility] 75 mg 2-15 [id number] TABLET BY it[facility] of tablet 00:00: MOUTH [place] 00 EVERY DAY Medical Branch PRAVASTATIN 2019- Yes [id number] 10mg TAKE 1 [facility] 10 mg 2-15 [id number] TABLET BY [facility] of tablet 00:00: MOUTH [place] 00 EVERY Medical OTHER DAY Branch CLOPIDOGREL 2019- Yes [id number] TAKE 1 [facility] 75 mg 2-15 [id number] TABLET BY [facility] of tablet 00:00: MOUTH [place] 00 EVERY DAY Medical Branch PRAVASTATIN 2020-1 Yes [id number] 10mg TAKE 1 [facility] 10 mg 2-15 [id number] TABLET BY [facility] of tablet 00:00: MOUTH [place] 00 EVERY Medical OTHER DAY Branch CLOPIDOGREL 2020-1 Yes [id number] TAKE 1 [facility] 75 mg 2-15 [id number] TABLET BY [facility] of tablet 00:00: MOUTH [place] 00 EVERY DAY Medical Branch PRAVASTATIN 2020-1 Yes [id number] 10mg TAKE 1 [facility] 10 mg 2-15 [id number] TABLET BY [facility] tablet 00:00: MOUTH [place] 00 EVERY Medical OTHER DAY Branch CLOPIDOGREL 2020-1 Yes [id number] TAKE 1 [facility] 75 mg 2-15 [id number] TABLET BY [facility] of tablet 00:00: MOUTH [place] 00 EVERY DAY Medical Branch PRAVASTATIN 2020-1 Yes [id number] 10mg TAKE 1 [facility] 10 mg 2-15 [id number] TABLET BY it[facility] of tablet 00:00: MOUTH 00 EVERY Medical OTHER DAY Branch CLOPIDOGREL 2020-1 Yes [id number] TAKE 1 [facility] 75 mg 2-15 [id number] TABLET BY it[facility] of tablet 00:00: MOUTH [place] EVERY DAY Medical Branch PRAVASTATIN 2020-1 Yes [id number] 10mg TAKE 1 [facility] 10 mg 2-15 [id number] TABLET BY ity of tablet 00:00: MOUTH [place] 00 EVERY Medical OTHER DAY Branch CLOPIDOGREL 2020-1 Yes [id number] TAKE 1 [facility] 75 mg 2-15 [id number] TABLET BY [facility] of tablet 00:00: MOUTH [place] 00 EVERY DAY Medical Branch PRAVASTATIN 2020-1 Yes [id number] 10mg TAKE 1 [facility] 10 mg 2-15 [id number] TABLET BY it[facility] of tablet 00:00: MOUTH [place] 00 EVERY Medical OTHER DAY Branch CLOPIDOGREL 2020-1 Yes [id number] TAKE 1 [facility] 75 mg 2-15 [id number] TABLET BY [facility] of tablet 00:00: MOUTH [place] 00 EVERY DAY Medical Branch PRAVASTATIN 2020-1 Yes [id number] 10mg TAKE 1 [facility] 10 mg 2-15 [id number] TABLET BY [facility] of tablet 00:00: MOUTH [place] 00 EVERY Medical OTHER DAY Branch CLOPIDOGREL 2020-1 Yes [id number] TAKE 1 [facility] 75 mg 2-15 [id number] TABLET BY it[facility] of tablet 00:00: MOUTH [place] 00 EVERY DAY Medical Branch PRAVASTATIN 2020-1 Yes [id number] 10mg TAKE 1 [facility] 10 mg 2-15 [id number] TABLET BY ity of tablet 00:00: MOUTH [place] 00 EVERY Medical OTHER DAY Branch CLOPIDOGREL 2020-1 Yes [id number] TAKE 1 [facility] 75 mg 2-15 [id number] TABLET BY it[facility] of tablet 00:00: MOUTH [place] 00 EVERY DAY Medical Branch PRAVASTATIN 2020-1 Yes [id number] 10mg TAKE 1 [facility] 10 mg 2-15 [id number] TABLET BY it[facility] of tablet 00:00: MOUTH [place] 00 EVERY Medical OTHER DAY Branch CLOPIDOGREL 2020-1 Yes [id number] TAKE 1 [facility] 75 mg 2-15 [id number] TABLET BY [facility] of tablet 00:00: MOUTH [place] 00 EVERY DAY Medical Branch PRAVASTATIN 2020-1 Yes [id number] 10mg TAKE 1 [facility] 10 mg 2-15 [id number] TABLET BY [facility] of tablet 00:00: MOUTH [place] 00 EVERY Medical OTHER DAY Branch CLOPIDOGREL 2020-1 Yes [id number] TAKE 1 [facility] 75 mg 2-15 [id number] TABLET BY [facility] of tablet 00:00: MOUTH [place] 00 EVERY DAY Medical Branch PRAVASTATIN 2020-1 Yes [id number] 10mg TAKE 1 [facility] 10 mg 2-15 [id number] TABLET BY it[facility] of tablet 00:00: MOUTH [place] 00 EVERY Medical OTHER DAY Branch CLOPIDOGREL 2020-1 Yes [id number] TAKE 1 [facility] 75 mg 2-15 [id number] TABLET BY it[facility] of tablet 00:00: MOUTH [place] 00 EVERY DAY Medical Branch PRAVASTATIN 2020-1 Yes [id number] 10mg TAKE 1 [facility] 10 mg 2-15 [id number] TABLET BY it[facility] of tablet 00:00: MOUTH [place] 00 EVERY Medical OTHER DAY Branch CLOPIDOGREL 2020-1 Yes [id number] TAKE 1 [facility] 75 mg 2-15 [id number] TABLET BY it[facility] of tablet 00:00: MOUTH [place] 00 EVERY DAY Medical Branch PRAVASTATIN 2020-1 Yes [id number] 10mg TAKE 1 [facility] 10 mg 2-15 [id number] TABLET BY it[facility] of tablet 00:00: MOUTH [place] 00 EVERY Medical OTHER DAY Branch CLOPIDOGREL 2020-1 Yes [id number] TAKE 1 [facility] 75 mg 2-15 [id number] TABLET BY it[facility] of tablet 00:00: MOUTH [place] 00 EVERY DAY Medical Branch PRAVASTATIN 2020-1 Yes [id number] 10mg TAKE 1 [facility] 10 mg 2-15 [id number] TABLET BY it[facility] of tablet 00:00: MOUTH [place] 00 EVERY Medical OTHER DAY Branch CLOPIDOGREL 2020-1 Yes [id number] TAKE 1 [facility] 75 mg 2-15 [id number] TABLET BY it[facility] of tablet 00:00: MOUTH [place] 00 EVERY DAY Medical Branch PRAVASTATIN 2020-1 Yes [id number] 10mg TAKE 1 [facility] 10 mg 2-15 [id number] TABLET BY [facility] of tablet 00:00: MOUTH [place] 00 EVERY Medical OTHER DAY Branch CLOPIDOGREL 2020-1 Yes [id number] TAKE 1 [facility] 75 mg 2-15 [id number] TABLET BY it[facility] of tablet 00:00: MOUTH [place] 00 EVERY DAY Medical Branch PRAVASTATIN 2020-1 Yes [id number] 10mg TAKE 1 [facility] 10 mg 2-15 [id number] TABLET BY [facility] of tablet 00:00: MOUTH [place] 00 EVERY Medical OTHER DAY Branch CLOPIDOGREL 2020-1 Yes [id number] TAKE 1 [facility] 75 mg 2-15 [id number] TABLET BY ity of tablet 00:00: MOUTH [place] 00 EVERY DAY Medical Branch PRAVASTATIN 2020-1 Yes [id number] 10mg TAKE 1 [facility] 10 mg 2-15 [id number] TABLET BY ity of tablet 00:00: MOUTH [place] 00 EVERY Medical OTHER DAY Branch CLOPIDOGREL 2020-1 Yes [id number] TAKE 1 [facility] 75 mg 2-15 [id number] TABLET BY ity of tablet 00:00: MOUTH [place] 00 EVERY DAY Medical Branch PRAVASTATIN 2020-1 Yes [id number] 10mg TAKE 1 [facility] 10 mg 2-15 [id number] TABLET BY ity of tablet 00:00: MOUTH [place] 00 EVERY Medical OTHER DAY Branch CLOPIDOGREL 2020-1 Yes [id number] TAKE 1 [facility] 75 mg 2-15 [id number] TABLET BY it[facility] of tablet 00:00: MOUTH [place] 00 EVERY DAY Medical Branch PRAVASTATIN 2020-1 Yes [id number] 10mg TAKE 1 [facility] 10 mg 2-15 [id number] TABLET BY it[facility] of tablet 00:00: MOUTH [place] 00 EVERY Medical OTHER DAY Branch CLOPIDOGREL 2020-1 Yes [id number] TAKE 1 [facility] 75 mg 2-15 [id number] TABLET BY ity of tablet 00:00: MOUTH [place] 00 EVERY DAY Medical Branch PRAVASTATIN 2020-1 Yes [id number] 10mg TAKE 1 [facility] 10 mg 2-15 [id number] TABLET BY ity of tablet 00:00: MOUTH [place] 00 EVERY Medical OTHER DAY Branch CLOPIDOGREL 2020-1 Yes [id number] TAKE 1 [facility] 75 mg 2-15 [id number] TABLET BY ity of tablet 00:00: MOUTH [place] 00 EVERY DAY Medical Branch PRAVASTATIN 2020-1 Yes [id number] 10mg TAKE 1 [facility] 10 mg 2-15 [id number] TABLET BY ity of tablet 00:00: MOUTH [place] 00 EVERY Medical OTHER DAY Branch CLOPIDOGREL 2020-1 Yes [id number] TAKE 1 [facility] 75 mg 2-15 [id number] TABLET BY ity of tablet 00:00: MOUTH [place] 00 EVERY DAY Medical Branch PRAVASTATIN 2020-1 Yes [id number] 10mg TAKE 1 [facility] 10 mg 2-15 [id number] TABLET BY ity of tablet 00:00: MOUTH [place] 00 EVERY Medical OTHER DAY Branch CLOPIDOGREL 2020-1 Yes [id number] TAKE 1 [facility] 75 mg 2-15 [id number] TABLET BY ity of tablet 00:00: MOUTH [place] 00 EVERY DAY Medical Branch PRAVASTATIN 2020-1 Yes [id number] 10mg TAKE 1 [facility] 10 mg 2-15 [id number] TABLET BY ity of tablet 00:00: MOUTH [place] 00 EVERY Medical OTHER DAY Branch CLOPIDOGREL 2020-1 Yes [id number] TAKE 1 [facility] 75 mg 2-15 [id number] TABLET BY ity of tablet 00:00: MOUTH [place] 00 EVERY DAY Medical Branch CLOPIDOGREL 2020-1 Yes [id number] TAKE 1 [facility] 75 mg 2-15 [id number] TABLET BY ity of tablet 00:00: MOUTH [place] 00 EVERY DAY Medical Branch CLOPIDOGREL 2020-1 Yes [id number] TAKE 1 [facility] 75 mg 2-15 [id number] TABLET BY ity of tablet 00:00: MOUTH [place] 00 EVERY DAY Medical Branch CLOPIDOGREL 2020-1 Yes [id number] TAKE 1 [facility] 75 mg 2-15 [id number] TABLET BY ity of tablet 00:00: MOUTH [place] 00 EVERY DAY Medical Branch CLOPIDOGREL 2020-1 Yes [id number] TAKE 1 [facility] 75 mg 2-15 [id number] TABLET BY ity of tablet 00:00: MOUTH [place] 00 EVERY DAY Medical Branch CLOPIDOGREL 2020-1 Yes [id number] TAKE 1 [facility] 75 mg 2-15 [id number] TABLET BY ity of tablet 00:00: MOUTH [place] 00 EVERY DAY Medical Branch CLOPIDOGREL 2020-1 Yes [id number] TAKE 1 [facility] 75 mg 2-15 [id number] TABLET BY [facility]y of tablet 00:00: MOUTH [place] 00 EVERY DAY Medical Branch CLOPIDOGREL 2020-1 Yes [id number] TAKE 1 [facility] 75 mg 2-15 [id number] TABLET BY [facility]y of tablet 00:00: MOUTH [place] 00 EVERY DAY Medical Branch CLOPIDOGREL 2020-1 Yes [id number] TAKE 1 [facility] 75 mg 2-15 [id number] TABLET BY ity of tablet 00:00: MOUTH [place] 00 EVERY DAY Medical Branch CLOPIDOGREL 2020-1 Yes [id number] TAKE 1 [facility] 75 mg 2-15 [id number] TABLET BY ity of tablet 00:00: MOUTH [place] 00 EVERY DAY Medical Branch CLOPIDOGREL 2020-1 Yes [id number] TAKE 1 [facility] 75 mg 2-15 [id number] TABLET BY ity of tablet 00:00: MOUTH [place] 00 EVERY DAY Medical Branch CLOPIDOGREL 2020- Yes [id number] TAKE 1 [facility] 75 mg 2-15 [id number] TABLET BY ity of tablet 00:00: [facility] 00 EVERY DAY Medical Branch CLOPIDOGREL 2020- Yes [id number] TAKE 1 [facility] 75 mg 2-15 [id number] TABLET BY ity of tablet 00:00: [facility] 00 EVERY DAY Medical Branch CLOPIDOGREL 2020- Yes [id number] TAKE 1 [facility] 75 mg 2-15 [id number] TABLET BY ity of tablet 00:00: MOUTH [place] 00 EVERY DAY Medical Branch CLOPIDOGREL 2020- Yes [id number] TAKE 1 [facility] 75 mg 2-15 [id number] TABLET BY ity of tablet 00:00: [facility] 00 EVERY DAY Medical Branch CLOPIDOGREL 2020- Yes [id number] TAKE 1 [facility] 75 mg 2-15 [id number] TABLET BY ity of tablet 00:00: [facility] 00 EVERY DAY Medical Branch CLOPIDOGREL 2020- Yes [id number] TAKE 1 [facility] 75 mg 2-15 [id number] TABLET BY ity of tablet 00:00: [facility] 00 EVERY DAY Medical Branch CLOPIDOGREL 2020- Yes [id number] TAKE 1 [facility] 75 mg 2-15 [id number] TABLET BY ity of tablet 00:00: [facility] 00 EVERY DAY Medical Branch CLOPIDOGREL 2020-2021- No [id number] TAKE 1 [facility] 75 mg 2-15 -25 [id number] TABLET BY ity of tablet 00:00: 00:00 [facility] 00 :00 EVERY DAY Medical Branch PRAVASTATIN 2020-2020- No [id number] 10mg TAKE 1 [facility] 10 mg 2-15 05-11 [id number] TABLET BY ity of tablet 00:00: 00:00 [facility] [place] 00 :00 EVERY Medical OTHER DAY Branch PRAVASTATIN 2020-2020- No [id number] 10mg TAKE 1 [facility] 10 mg 2-15 05-11 [id number] TABLET BY ity of tablet 00:00: 00:00 [facility] [place] 00 :00 EVERY Medical OTHER DAY Branch gabapentin 2020- Yes [id number] 100mg Take 1 [facility] 100 mg 2-14 [id number] capsule by ity o f capsule 00:00: mouth [address] [place] [address] 00 (three) Medical times Branch daily. gabapentin 2020- Yes [id number] 100mg Take 1 [facility] 100 mg 2-14 [id number] capsule by ity o f capsule 00:00: mouth 3 [place] 00 (three) Medical times Branch daily. gabapentin 2019-09 Yes [id number] 100mg Take 1 [facility] 100 mg 2-14 [id number] capsule by ity o f capsule 00:00: mouth 3 [place] 00 (three) Medical times Branch daily. gabapentin 2019-09 Yes [id number] 100mg Take 1 [facility] 100 mg 2-14 [id number] capsule by ity o f capsule 00:00: mouth 3 [place] 00 (three) Medical times Branch daily. gabapentin 2019-09- No [id number] 100mg Take 1 [facility] 100 mg 2-14 -05 [id number] capsule by ity of capsule 00:00: 00:00 mouth 3 [place] 00 :00 (three) Medical times Branch daily. gabapentin 2019-09- No [id number] 100mg Take 1 [facility] 100 mg 2-14 -05 [id number] capsule by ity of capsule 00:00: 00:00 mouth 3 [place] 00 :00 (three) Medical times Branch daily. gabapentin 2019-09- No [id number] 100mg Take 1 [facility] 100 mg 2-14 12-14 [id number] capsule by ity of capsule 00:00: 00:00 mouth 3 [place] 00 :00 (three) Medical times Branch daily. cefUROXime 2019- 2020- No [id number] 500mg Take 1 [facility] 500 mg 2-10 12-18 tablet by ity of tablet 00:00: 05:59 mouth 2 [place] 00 :00 (two) Medical times Branch daily for 7 days. cefUROXime 2019- 2020- No [id number] 500mg Take 1 [facility] 500 mg 2-10 12-18 tablet by ity of tablet 00:00: 05:59 mouth 2 [place] 00 :00 (two) Medical times Branch daily for 7 days. cefUROXime 2019- 2020- No [id number] 500mg Take 1 [facility] 500 mg 2-10 12-18 tablet by ity of tablet 00:00: 05:59 mouth 2 [place] 00 :00 (two) Medical times Branch daily for 7 days. cefUROXime 2019- 2020- No [id number] 500mg Take 1 [facility] 500 mg 2-10 12-18 tablet by ity of tablet 00:00: 05:59 mouth 2 [place] 00 :00 (two) Medical times Branch daily for 7 days. cefUROXime 2019-09 2020- No [id number] 500mg Take 1 [facility] 500 mg 2-10 12-18 tablet by ity of tablet 00:00: 05:59 mouth 2 [place] 00 :00 (two) Medical times Branch daily for 7 days. metoprolol 2020- Yes [id number] 25mg Take 1 U nivers succinate 2-09 tablet by ity o f XL 25 mg 24 00:00: mouth 2 [place] tablet 00 (two) Medical times Branch daily. metoprolol 2019- Yes [id number] 25mg Take 1 U nivers succinate 2-09 tablet by ity o f XL 25 mg 24 00:00: mouth 2 [place] [facility] tablet 00 (two) Medical times Branch daily. clopidogreL 2019- Yes [id number] 75mg Take 1 [facility] (PLAVIX) 75 2-09 [id number] tablet by i ty of mg tablet 00:00: mouth [place] 00 daily. Medical Branch pravastatin 2019- Yes [id number] 10mg Take 1 [facility] 10 mg 2-09 [id number] tablet by ity of tablet 00:00: mouth [place] 00 every Medical other day. Branch metoprolol 2019- Yes [id number] 25mg Take 1 U nivers succinate 2-09 tablet by ity o f XL 25 mg 24 00:00: mouth 2 [place] [facility] tablet 00 (two) Medical times Branch daily. clopidogreL 2019- Yes [id number] 75mg Take 1 [facility] (PLAVIX) 75 2-09 [id number] tablet by i ty of mg tablet 00:00: mouth [place] 00 daily. Medical Branch pravastatin 2019- Yes [id number] 10mg Take 1 [facility] 10 mg 2-09 [id number] tablet by ity of tablet 00:00: mouth [place] 00 every Medical other day. Branch metoprolol 2019- Yes [id number] 25mg Take 1 U nivers succinate 2-09 tablet by ity o f XL 25 mg 24 00:00: mouth 2 [place] [facility] tablet 00 (two) Medical times Branch daily. clopidogreL 2020- Yes [id number] 75mg Take 1 [facility] (PLAVIX) 75 2-09 [id number] tablet by i ty of mg tablet 00:00: mouth [place] 00 daily. Medical Branch pravastatin 2019- Yes [id number] 10mg Take 1 [facility] 10 mg 2-09 [id number] tablet by ity of tablet 00:00: mouth [place] 00 every Medical other day. Branch metoprolol 2019- Yes [id number] 25mg Take 1 U nivers succinate 2-09 tablet by ity o f XL 25 mg 24 00:00: mouth 2 [place] [facility] tablet 00 (two) Medical times Branch daily. clopidogreL 2020- Yes [id number] 75mg Take 1 [facility] (PLAVIX) 75 2-09 [id number] tablet by i ty of mg tablet 00:00: mouth [place] 00 daily. Medical Branch pravastatin 2020- Yes [id number] 10mg Take 1 [facility] 10 mg 2-09 [id number] tablet by ity of tablet 00:00: mouth [place] 00 every Medical other day. Branch metoprolol 2019- Yes [id number] 25mg Take 1 U nivers succinate 2-09 tablet by ity o f XL 25 mg 24 00:00: mouth 2 [place] tablet 00 (two) Medical times Branch daily. metoprolol 2020- Yes [id number] 25mg Take 1 U nivers succinate 2-09 tablet by ity o f XL 25 mg 24 00:00: mouth 2 [place] tablet 00 (two) Medical times Branch daily. clopidogreL 2020- Yes [id number] 75mg Take 1 [facility] (PLAVIX) 75 2-09 [id number] tablet by i ty of mg tablet 00:00: mouth [place] 00 daily. Medical Branch pravastatin 2019- Yes [id number] 10mg Take 1 [facility] 10 mg 2-09 [id number] tablet by ity of tablet 00:00: mouth [place] 00 every Medical other day. Branch metoprolol 2019- Yes [id number] 25mg Take 1 U nivers succinate 2-09 tablet by ity o f XL 25 mg 24 00:00: mouth 2 [place] tablet 00 (two) Medical times Branch daily. metoprolol 2020- Yes [id number] 25mg Take 1 U nivers succinate 2-09 tablet by ity o f XL 25 mg 24 00:00: mouth 2 [place] tablet 00 (two) Medical times Branch daily. metoprolol 2020- Yes [id number] 25mg Take 1 U nivers succinate 2-09 tablet by ity o f XL 25 mg 24 00:00: mouth 2 [place] tablet 00 (two) Medical times Branch daily. metoprolol 2020- Yes [id number] 25mg Take 1 U nivers succinate 2-09 tablet by ity o f XL 25 mg 24 00:00: mouth 2 [place] tablet 00 (two) Medical times Branch daily. metoprolol 2019- Yes [id number] 25mg Take 1 U nivers succinate 2-09 tablet by ity o f XL 25 mg 24 00:00: mouth 2 [place] tablet 00 (two) Medical times Branch daily. metoprolol 2019- Yes [id number] 25mg Take 1 U nivers succinate 2-09 tablet by ity o f XL 25 mg 24 00:00: mouth 2 [place] tablet 00 (two) Medical times Branch daily. metoprolol 2019- Yes [id number] 25mg Take 1 U nivers succinate 2-09 tablet by ity o f XL 25 mg 24 00:00: mouth 2 [place] tablet 00 (two) Medical times Branch daily. metoprolol 2019- Yes [id number] 25mg Take 1 U nivers succinate 2-09 tablet by ity o f XL 25 mg 24 00:00: mouth 2 [place] tablet 00 (two) Medical times Branch daily. metoprolol 2019- Yes [id number] 25mg Take 1 U nivers succinate 2-09 tablet by ity o f XL 25 mg 24 00:00: mouth 2 [place] tablet 00 (two) Medical times Branch daily. metoprolol 2019- Yes [id number] 25mg Take 1 U nivers succinate 2-09 tablet by ity o f XL 25 mg 24 00:00: mouth 2 [place] tablet 00 (two) Medical times Branch daily. metoprolol 2019- Yes [id number] 25mg Take 1 [facility] nivers succinate 2-09 tablet by ity o f XL 25 mg 24 00:00: mouth 2 [place] tablet 00 (two) Medical times Branch daily. metoprolol 2019- Yes [id number] 25mg Take 1 U nivers succinate 2-09 tablet by ity o f XL 25 mg 24 00:00: mouth 2 [place] tablet 00 (two) Medical times Branch daily. metoprolol 2019- Yes [id number] 25mg Take 1 U nivers succinate 2-09 tablet by ity o f XL 25 mg 24 00:00: mouth 2 [place] tablet 00 (two) Medical times Branch daily. metoprolol 2019- Yes [id number] 25mg Take 1 U nivers succinate 2-09 tablet by ity o f XL 25 mg 24 00:00: mouth 2 [place] tablet 00 (two) Medical times Branch daily. metoprolol 2019- Yes [id number] 25mg Take 1 U nivers succinate 2-09 tablet by ity o f XL 25 mg 24 00:00: mouth 2 [place] tablet 00 (two) Medical times Branch daily. metoprolol 2019- Yes [id number] 25mg Take 1 U nivers succinate 2-09 tablet by ity o f XL 25 mg 24 00:00: mouth 2 [place] tablet 00 (two) Medical times Branch daily. metoprolol 2019- Yes [id number] 25mg Take 1 U nivers succinate 2-09 tablet by ity o f XL 25 mg 24 00:00: mouth 2 [place] tablet 00 (two) Medical times Branch daily. metoprolol 2019- Yes [id number] 25mg Take 1 U nivers succinate 2-09 tablet by ity o f XL 25 mg 24 00:00: mouth 2 [place] tablet 00 (two) Medical times Branch daily. metoprolol 2019- Yes [id number] 25mg Take 1 U nivers succinate 2-09 tablet by ity o f XL 25 mg 24 00:00: mouth 2 [place] tablet 00 (two) Medical times Branch daily. metoprolol 2019- Yes [id number] 25mg Take 1 U nivers succinate 2-09 tablet by ity o f XL 25 mg 24 00:00: mouth 2 [place] tablet 00 (two) Medical times Branch daily. metoprolol 2019- Yes [id number] 25mg Take 1 U nivers succinate 2-09 tablet by ity o f XL 25 mg 24 00:00: mouth 2 [place] tablet 00 (two) Medical times Branch daily. metoprolol 2019- Yes [id number] 25mg Take 1 U nivers succinate 2-09 tablet by ity o f XL 25 mg 24 00:00: mouth 2 [place] tablet 00 (two) Medical times Branch daily. metoprolol 2019- Yes [id number] 25mg Take 1 U nivers succinate 2-09 tablet by ity o f XL 25 mg 24 00:00: mouth 2 [place] tablet 00 (two) Medical times Branch daily. metoprolol 2019- Yes [id number] 25mg Take 1 U nivers succinate 2-09 tablet by ity o f XL 25 mg 24 00:00: mouth 2 [place] tablet 00 (two) Medical times Branch daily. metoprolol 2019-09 Yes [id number] 25mg Take 1 U nivers succinate 2-09 tablet by ity o f XL 25 mg 24 00:00: mouth 2 [place] tablet 00 (two) Medical times Branch daily. metoprolol 2019-09 Yes [id number] 25mg Take 1 U nivers succinate 2-09 tablet by ity o f XL 25 mg 24 00:00: mouth 2 [place] tablet 00 (two) Medical times Branch daily. metoprolol 2019-09 Yes [id number] 25mg Take 1 U nivers succinate 2-09 tablet by ity o f XL 25 mg 24 00:00: mouth 2 [place] [facility] tablet 00 (two) Medical times Branch daily. metoprolol 2019-09 Yes [id number] 25mg Take 1 U nivers succinate 2-09 tablet by ity o f XL 25 mg 24 00:00: mouth 2 [place] hr tablet 00 (two) Medical times Branch daily. metoprolol 2019-09- No [id number] 25mg Take 1 [facility] succinate 2-09 05-21 tablet by ity of XL 25 mg 24 00:00: 00:00 mouth 2 [place] hr tablet 00 :00 (two) Medical times Branch daily. clopidogreL 2019-09- No [id number] 75mg Take 1 [facility] (PLAVIX) 75 10-26 [id number] tablet by ity of mg tablet 00:00: 00:00 mouth [place] 00 :00 daily. Medical Branch pravastatin 2019-09- No [id number] 10mg Take 1 [facility] 10 mg 10-26 [id number] tablet by ity of tablet 00:00: 00:00 mouth [place] 00 :00 every Medical other day. Branch tiZANidine 2019-09 Yes [id number] 4mg Take 1-2 [facility] 4 mg tablet 10-24 [id number] tablets by ity of 00:00: mouth [place] 00 every 8 Medical (eight) Branch hours as needed (muscle pain or spasm). metformin 2019-09 Yes [id number] 500mg Take 1 U nivers ER 500 mg 2-07 tablet by ity o f 24 hr 00:00: mouth 2 [place] tablet 00 (two) Medical times Branch daily with meals. triamterene 2019-09 Yes [id number] 1{tbl} Take 1 [facility] -hydrochlor 2-07 tablet by ity of othiazid 00:00: mouth [place] 37.5-25 mg 00 daily. Medical tablet Branch tiZANidine 2019-09 Yes [id number] 4mg Take 1-2 [facility] 4 mg tablet 2-07 [id number] tablets by ity of 00:00: mouth [place] 00 every 8 Medical (eight) Branch hours as needed (muscle pain or spasm). metformin 2019-09 Yes [id number] 500mg Take 1 U nivers ER 500 mg 2-07 tablet by ity o f 24 hr 00:00: mouth 2 [place] tablet 00 (two) Medical times Branch daily with meals. triamterene 2019-09 Yes [id number] 1{tbl} Take 1 [facility] -hydrochlor 2-07 tablet by ity of othiazid 00:00: mouth [place] 37.5-25 mg 00 daily. Medical tablet Branch tiZANidine 2019-09 Yes [id number] 4mg Take 1-2 [facility] 4 mg tablet 2-07 [id number] tablets by ity of 00:00: mouth [place] 00 every 8 Medical (eight) Branch hours as needed (muscle pain or spasm). metformin 2019-09 Yes [id number] 500mg Take 1 U nivers ER 500 mg 2-07 tablet by ity o f 24 hr 00:00: mouth 2 [place] tablet 00 (two) Medical times Branch daily with meals. triamterene 2019-09 Yes [id number] 1{tbl} Take 1 [facility] -hydrochlor 2-07 tablet by ity of othiazid 00:00: mouth [place] 37.5-25 mg 00 daily. Medical tablet Branch tiZANidine 2019-09 Yes [id number] 4mg Take 1-2 [facility] 4 mg tablet 2-07 [id number] tablets by ity of 00:00: mouth [place] 00 every 8 Medical (eight) Branch hours as needed (muscle pain or spasm). metformin 2019-09 Yes [id number] 500mg Take 1 U nivers ER 500 mg 2-07 tablet by ity o f 24 hr 00:00: mouth 2 [place] tablet 00 (two) Medical times Branch daily with meals. triamterene 2019-09 Yes [id number] 1{tbl} Take 1 [facility] -hydrochlor 2-07 tablet by ity of othiazid 00:00: mouth [place] 37.5-25 mg 00 daily. Medical tablet Branch tiZANidine 2019-09 Yes [id number] 4mg Take 1-2 [facility] 4 mg tablet 2-07 [id number] tablets by ity of 00:00: mouth [place] 00 every 8 Medical (eight) Branch hours as needed (muscle pain or spasm). metformin 2019-09 Yes [id number] 500mg Take 1 U nivers ER 500 mg 2-07 tablet by ity o f 24 hr 00:00: mouth 2 [place] tablet 00 (two) Medical times Branch daily with meals. triamterene 2019-09 Yes [id number] 1{tbl} Take 1 [facility] -hydrochlor 2-07 tablet by ity of othiazid 00:00: mouth [place] 37.5-25 mg 00 daily. Medical tablet Branch tiZANidine 2019-09 Yes [id number] 4mg Take 1-2 [facility] 4 mg tablet 2-07 [id number] tablets by ity of 00:00: mouth [place] 00 every 8 Medical (eight) Branch hours as needed (muscle pain or spasm). metformin 2019-09 Yes [id number] 500mg Take 1 U nivers ER 500 mg 2-07 tablet by ity o f 24 hr 00:00: mouth 2 [place] tablet 00 (two) Medical times Branch daily with meals. triamterene 2019-09 Yes [id number] 1{tbl} Take 1 [facility] -hydrochlor 2-07 tablet by ity of othiazid 00:00: mouth [place] 37.5-25 mg 00 daily. Medical tablet Branch tiZANidine 2019-09 Yes [id number] 4mg Take 1-2 [facility] 4 mg tablet 2-07 [id number] tablets by ity of 00:00: mouth [place] 00 every 8 Medical (eight) Branch hours as needed (muscle pain or spasm). metformin 2019-09 Yes [id number] 500mg Take 1 U nivers ER 500 mg 2-07 tablet by ity o f 24 hr 00:00: mouth 2 [place] tablet 00 (two) Medical times Branch daily with meals. triamterene 2019-09 Yes [id number] 1{tbl} Take 1 [facility] -hydrochlor 2-07 tablet by ity of othiazid 00:00: mouth [place] 37.5-25 mg 00 daily. Medical tablet Branch tiZANidine 2019-09 Yes [id number] 4mg Take 1-2 [facility] 4 mg tablet 2-07 [id number] tablets by ity of 00:00: mouth [place] 00 every 8 Medical (eight) Branch hours as needed (muscle pain or spasm). metformin 2019-09 Yes [id number] 500mg Take 1 U nivers ER 500 mg 2-07 tablet by ity o f 24 hr 00:00: mouth 2 [place] tablet 00 (two) Medical times Branch daily with meals. triamterene 2019-09 Yes [id number] 1{tbl} Take 1 [facility] -hydrochlor 2-07 tablet by ity of othiazid 00:00: mouth [place] 37.5-25 mg 00 daily. Medical tablet Branch tiZANidine 2019-09 Yes [id number] 4mg Take 1-2 [facility] 4 mg tablet 2-07 [id number] tablets by ity of 00:00: mouth [place] 00 every 8 Medical (eight) Branch hours as needed (muscle pain or spasm). metformin 2019-09 Yes [id number] 500mg Take 1 U nivers ER 500 mg 2-07 tablet by ity o f 24 hr 00:00: mouth 2 [place] tablet 00 (two) Medical times Branch daily with meals. triamterene 2019-09 Yes [id number] 1{tbl} Take 1 [facility] -hydrochlor 2-07 tablet by ity of othiazid 00:00: mouth [place] 37.5-25 mg 00 daily. Medical tablet Branch tiZANidine 2019-09 Yes [id number] 4mg Take 1-2 [facility] 4 mg tablet 2-07 [id number] tablets by ity of 00:00: mouth [place] 00 every 8 Medical (eight) Branch hours as needed (muscle pain or spasm). metformin 2019-09 Yes [id number] 500mg Take 1 U nivers ER 500 mg 2-07 tablet by ity o f 24 hr 00:00: mouth 2 [place] tablet 00 (two) Medical times Branch daily with meals. triamterene 2019-09 Yes [id number] 1{tbl} Take 1 [facility] -hydrochlor 2-07 tablet by ity of othiazid 00:00: mouth [place] 37.5-25 mg 00 daily. Medical tablet Branch tiZANidine 2019-09 Yes [id number] 4mg Take 1-2 [facility] 4 mg tablet 2-07 [id number] tablets by ity of 00:00: mouth [place] 00 every 8 Medical (eight) Branch hours as needed (muscle pain or spasm). metformin 2019-09 Yes [id number] 500mg Take 1 U nivers ER 500 mg 2-07 tablet by ity o f 24 hr 00:00: mouth 2 [place] tablet 00 (two) Medical times Branch daily with meals. triamterene 2019-09 Yes [id number] 1{tbl} Take 1 [facility] -hydrochlor 2-07 tablet by ity of othiazid 00:00: mouth [place] 37.5-25 mg 00 daily. Medical tablet Branch tiZANidine 2019-09 Yes [id number] 4mg Take 1-2 [facility] 4 mg tablet 2-07 [id number] tablets by ity of 00:00: mouth [place] 00 every 8 Medical (eight) Branch hours as needed (muscle pain or spasm). metformin 2019-09 Yes [id number] 500mg Take 1 U nivers ER 500 mg 2-07 tablet by ity o f 24 hr 00:00: mouth 2 [place] tablet 00 (two) Medical times Branch daily with meals. triamterene 2019-09 Yes [id number] 1{tbl} Take 1 [facility] -hydrochlor 2-07 tablet by ity of othiazid 00:00: mouth [place] 37.5-25 mg 00 daily. Medical tablet Branch tiZANidine 2019-09 Yes [id number] 4mg Take 1-2 [facility] 4 mg tablet 2-07 [id number] tablets by ity of 00:00: mouth [place] 00 every 8 Medical (eight) Branch hours as needed (muscle pain or spasm). metformin 2019-09 Yes [id number] 500mg Take 1 U nivers ER 500 mg 2-07 tablet by ity o f 24 hr 00:00: mouth 2 [place] tablet 00 (two) Medical times Branch daily with meals. triamterene 2019-09 Yes [id number] 1{tbl} Take 1 [facility] -hydrochlor 2-07 tablet by ity of othiazid 00:00: mouth [place] 37.5-25 mg 00 daily. Medical tablet Branch tiZANidine 2019-09 Yes [id number] 4mg Take 1-2 [facility] 4 mg tablet 2-07 [id number] tablets by ity of 00:00: mouth [place] 00 every 8 Medical (eight) Branch hours as needed (muscle pain or spasm). metformin 2019-09 Yes [id number] 500mg Take 1 U nivers ER 500 mg 2-07 tablet by ity o f 24 hr 00:00: mouth 2 [place] tablet 00 (two) Medical times Branch daily with meals. triamterene 2019-09 Yes [id number] 1{tbl} Take 1 [facility] -hydrochlor 2-07 tablet by ity of othiazid 00:00: mouth [place] 37.5-25 mg 00 daily. Medical tablet Branch tiZANidine 2019-09 Yes [id number] 4mg Take 1-2 [facility] 4 mg tablet 2-07 [id number] tablets by ity of 00:00: mouth [place] 00 every 8 Medical (eight) Branch hours as needed (muscle pain or spasm). metformin 2019-09 Yes [id number] 500mg Take 1 U nivers ER 500 mg 2-07 tablet by ity o f 24 hr 00:00: mouth 2 [place] tablet 00 (two) Medical times Branch daily with meals. triamterene 2019-09 Yes [id number] 1{tbl} Take 1 [facility] -hydrochlor 2-07 tablet by ity of othiazid 00:00: mouth [place] 37.5-25 mg 00 daily. Medical tablet Branch tiZANidine 2019-09 Yes [id number] 4mg Take 1-2 [facility] 4 mg tablet 2-07 [id number] tablets by ity of 00:00: mouth [place] 00 every 8 Medical (eight) Branch hours as needed (muscle pain or spasm). metformin 2019-09 Yes [id number] 500mg Take 1 U nivers ER 500 mg 2-07 tablet by ity o f 24 hr 00:00: mouth 2 [place] tablet 00 (two) Medical times Branch daily with meals. triamterene 2019-09 Yes [id number] 1{tbl} Take 1 [facility] -hydrochlor 2-07 tablet by ity of othiazid 00:00: mouth [place] 37.5-25 mg 00 daily. Medical tablet Branch tiZANidine 2019-09 Yes [id number] 4mg Take 1-2 [facility] 4 mg tablet 2-07 [id number] tablets by ity of 00:00: mouth [place] 00 every 8 Medical (eight) Branch hours as needed (muscle pain or spasm). metformin 2019-09 Yes [id number] 500mg Take 1 U nivers ER 500 mg 2-07 tablet by ity o f 24 hr 00:00: mouth 2 [place] tablet 00 (two) Medical times Branch daily with meals. triamterene 2019-09 Yes [id number] 1{tbl} Take 1 [facility] -hydrochlor 2-07 tablet by ity of othiazid 00:00: mouth [place] 37.5-25 mg 00 daily. Medical tablet Branch tiZANidine 2019-09 Yes [id number] 4mg Take 1-2 [facility] 4 mg tablet 2-07 [id number] tablets by ity of 00:00: mouth [place] 00 every 8 Medical (eight) Branch hours as needed (muscle pain or spasm). metformin 2019-09 Yes [id number] 500mg Take 1 U nivers ER 500 mg 2-07 tablet by ity o f 24 hr 00:00: mouth 2 [place] tablet 00 (two) Medical times Branch daily with meals. triamterene 2019-09 Yes [id number] 1{tbl} Take 1 [facility] -hydrochlor 2-07 tablet by ity of othiazid 00:00: mouth [place] 37.5-25 mg 00 daily. Medical tablet Branch tiZANidine 2019-09 Yes [id number] 4mg Take 1-2 [facility] 4 mg tablet 2-07 [id number] tablets by ity of 00:00: mouth [place] 00 every 8 Medical (eight) Branch hours as needed (muscle pain or spasm). metformin 2019-09 Yes [id number] 500mg Take 1 U nivers ER 500 mg 2-07 tablet by ity o f 24 hr 00:00: mouth 2 [place] tablet 00 (two) Medical times Branch daily with meals. triamterene 2019-09 Yes [id number] 1{tbl} Take 1 [facility] -hydrochlor 2-07 tablet by ity of othiazid 00:00: mouth [place] 37.5-25 mg 00 daily. Medical tablet Branch tiZANidine 2019-09 Yes [id number] 4mg Take 1-2 [facility] 4 mg tablet 2-07 [id number] tablets by ity of 00:00: mouth [place] 00 every 8 Medical (eight) Branch hours as needed (muscle pain or spasm). metformin 2019-09 Yes [id number] 500mg Take 1 U nivers ER 500 mg 2-07 tablet by ity o f 24 hr 00:00: mouth 2 [place] tablet 00 (two) Medical times Branch daily with meals. triamterene 2019-09 Yes [id number] 1{tbl} Take 1 [facility] -hydrochlor 2-07 tablet by ity of othiazid 00:00: mouth [place] 37.5-25 mg 00 daily. Medical tablet Branch tiZANidine 2019-09 Yes [id number] 4mg Take 1-2 [facility] 4 mg tablet 2-07 [id number] tablets by ity of 00:00: mouth [place] 00 every 8 Medical (eight) Branch hours as needed (muscle pain or spasm). metformin 2019-09 Yes [id number] 500mg Take 1 U nivers ER 500 mg 2-07 tablet by ity o f 24 hr 00:00: mouth 2 [place] tablet 00 (two) Medical times Branch daily with meals. triamterene 2019-09 Yes [id number] 1{tbl} Take 1 [facility] -hydrochlor 2-07 tablet by ity of othiazid 00:00: mouth [place] 37.5-25 mg 00 daily. Medical tablet Branch tiZANidine 2019-09 Yes [id number] 4mg Take 1-2 [facility] 4 mg tablet 2-07 [id number] tablets by ity of 00:00: mouth [place] 00 every 8 Medical (eight) Branch hours as needed (muscle pain or spasm). metformin 2019-09 Yes [id number] 500mg Take 1 U nivers ER 500 mg 2-07 tablet by ity o f 24 hr 00:00: mouth 2 [place] tablet 00 (two) Medical times Branch daily with meals. triamterene 2019-09 Yes [id number] 1{tbl} Take 1 [facility] -hydrochlor 2-07 tablet by ity of othiazid 00:00: mouth [place] 37.5-25 mg 00 daily. Medical tablet Branch tiZANidine 2019-09 Yes [id number] 4mg Take 1-2 [facility] 4 mg tablet 2-07 [id number] tablets by ity of 00:00: mouth [place] 00 every 8 Medical (eight) Branch hours as needed (muscle pain or spasm). metformin 2019-09 Yes [id number] 500mg Take 1 U nivers ER 500 mg 2-07 tablet by ity o f 24 hr 00:00: mouth 2 [place] tablet 00 (two) Medical times Branch daily with meals. triamterene 2019-09 Yes [id number] 1{tbl} Take 1 [facility] -hydrochlor 2-07 tablet by ity of othiazid 00:00: mouth [place] 37.5-25 mg 00 daily. Medical tablet Branch tiZANidine 2019-09 Yes [id number] 4mg Take 1-2 [facility] 4 mg tablet 2-07 [id number] tablets by ity of 00:00: mouth [place] 00 every 8 Medical (eight) Branch hours as needed (muscle pain or spasm). metformin 2019-09 Yes [id number] 500mg Take 1 U nivers ER 500 mg 2-07 tablet by ity o f 24 hr 00:00: mouth 2 [place] tablet 00 (two) Medical times Branch daily with meals. triamterene 2019-09 Yes [id number] 1{tbl} Take 1 [facility] -hydrochlor 2-07 tablet by ity of othiazid 00:00: mouth [place] 37.5-25 mg 00 daily. Medical tablet Branch tiZANidine 2019-09 Yes [id number] 4mg Take 1-2 [facility] 4 mg tablet 2-07 [id number] tablets by [facility] of 00:00: mouth [place] 00 every 8 Medical (eight) Branch hours as needed (muscle pain or spasm). metformin 2019-09 Yes [id number] 500mg Take 1 [facility] 500 mg 2-07 tablet by [facility] o f 24 hr 00:00: mouth 2 [place] tablet 00 (two) Medical times Branch daily with meals. triamterene 2019-09 Yes [id number] 1{tbl} Take 1 [facility] -hydrochlor 2-07 tablet by [facility] of othiazid 00:00: mouth [place] 37.5-25 mg 00 daily. Medical tablet Branch tiZANidine 2019-09 Yes [id number] 4mg Take 1-2 [facility] 4 mg tablet 2-07 [id number] tablets by [facility] of 00:00: mouth [place] 00 every 8 Medical (eight) Branch hours as needed (muscle pain or spasm). metformin 2019-09 Yes [id number] 500mg Take 1 [facility] 500 mg 2-07 tablet by [facility] o f 24 hr 00:00: mouth 2 [place] tablet 00 (two) Medical times Branch daily with meals. triamterene 2019-09 Yes [id number] 1{tbl} Take 1 [facility] -hydrochlor 2-07 tablet by [facility] of othiazid 00:00: mouth [place] 37.5-25 mg 00 daily. Medical tablet Branch tiZANidine 2019-09 Yes [id number] 4mg Take 1-2 [facility] 4 mg tablet 2-07 [id number] tablets by [facility] of 00:00: mouth [place] 00 every 8 Medical (eight) Branch hours as needed (muscle pain or spasm). metformin 2019-09 Yes [id number] 500mg Take 1 [facility] 500 mg 2-07 tablet by [facility] o f 24 hr 00:00: mouth 2 [place] tablet 00 (two) Medical times Branch daily with meals. triamterene 2019-09 Yes [id number] 1{tbl} Take 1 [facility] -hydrochlor 2-07 tablet by [facility] of othiazid 00:00: mouth [place] 37.5-25 mg 00 daily. Medical tablet Branch tiZANidine 2019-09 Yes [id number] 4mg Take 1-2 [facility] 4 mg tablet 2-07 [id number] tablets by [facility] of 00:00: mouth [place] 00 every 8 Medical (eight) Branch hours as needed (muscle pain or spasm). metformin 2019-09 Yes [id number] 500mg Take 1 [facility] 500 mg 2-07 tablet by [facility] o f 24 hr 00:00: mouth 2 [place] tablet 00 (two) Medical times Branch daily with meals. triamterene 2019-09 Yes [id number] 1{tbl} Take 1 [facility] -hydrochlor 2-07 tablet by [facility] of othiazid 00:00: mouth [place] 37.5-25 mg 00 daily. Medical tablet Branch tiZANidine 2019-09 Yes [id number] 4mg Take 1-2 [facility] 4 mg tablet 2-07 [id number] tablets by [facility] of 00:00: mouth [place] 00 every 8 Medical (eight) Branch hours as needed (muscle pain or spasm). metformin 2019-09 Yes [id number] 500mg Take 1 [facility] 500 mg 2-07 tablet by [facility] o f 24 hr 00:00: mouth 2 [place] tablet 00 (two) Medical times Branch daily with meals. triamterene 2019-09 Yes [id number] 1{tbl} Take 1 [facility] -hydrochlor 2-07 tablet by [facility] of othiazid 00:00: mouth [place] 37.5-25 mg 00 daily. Medical tablet Branch tiZANidine 2019-09 Yes [id number] 4mg Take 1-2 [facility] 4 mg tablet 2-07 [id number] tablets by [facility] of 00:00: mouth [place] 00 every 8 Medical (eight) Branch hours as needed (muscle pain or spasm). metformin 2019-09 Yes [id number] 500mg Take 1 [facility] 500 mg 2-07 tablet by [facility] o f 24 hr 00:00: mouth 2 [place] tablet 00 (two) Medical times Branch daily with meals. triamterene 2019-09 Yes [id number] 1{tbl} Take 1 [facility] -hydrochlor 2-07 tablet by [facility] of othiazid 00:00: mouth [place] 37.5-25 mg 00 daily. Medical tablet Branch tiZANidine 2019-09 Yes [id number] 4mg Take 1-2 [facility] 4 mg tablet 2-07 [id number] tablets by [facility] of 00:00: mouth [place] 00 every 8 Medical (eight) Branch hours as needed (muscle pain or spasm). metformin 2019-09 Yes [id number] 500mg Take 1 [facility] 500 mg 2-07 tablet by [facility] o f 24 hr 00:00: mouth 2 [place] tablet 00 (two) Medical times Branch daily with meals. triamterene 2019-09 Yes [id number] 1{tbl} Take 1 [facility] -hydrochlor 2-07 tablet by [facility] of othiazid 00:00: mouth [place] 37.5-25 mg 00 daily. Medical tablet Branch tiZANidine 2019-09 Yes [id number] 4mg Take 1-2 [facility] 4 mg tablet 2-07 [id number] tablets by [facility] of 00:00: mouth [place] 00 every 8 Medical (eight) Branch hours as needed (muscle pain or spasm). metformin 2019-09 Yes [id number] 500mg Take 1 [facility] 500 mg 2-07 tablet by ity o f 24 hr 00:00: mouth 2 [place] tablet 00 (two) Medical times Branch daily with meals. triamterene 2019-09 Yes [id number] 1{tbl} Take 1 [facility] -hydrochlor 2-07 tablet by [facility] of othiazid 00:00: mouth [place] 37.5-25 mg 00 daily. Medical tablet Branch tiZANidine 2019-09 Yes [id number] 4mg Take 1-2 [facility] 4 mg tablet 2-07 [id number] tablets by [facility] of 00:00: mouth [place] 00 every 8 Medical (eight) Branch hours as needed (muscle pain or spasm). metformin 2019-09 Yes [id number] 500mg Take 1 [facility] 500 mg 2-07 tablet by [facility] o f 24 hr 00:00: mouth 2 [place] tablet 00 (two) Medical times Branch daily with meals. triamterene 2019-09 Yes [id number] 1{tbl} Take 1 [facility] -hydrochlor 2-07 tablet by [facility] of othiazid 00:00: mouth [place] 37.5-25 mg 00 daily. Medical tablet Branch tiZANidine 2019-09 Yes [id number] 4mg Take 1-2 [facility] 4 mg tablet 2-07 [id number] tablets by [facility] of 00:00: mouth [place] 00 every 8 Medical (eight) Branch hours as needed (muscle pain or spasm). metformin 2019-09 Yes [id number] 500mg Take 1 [facility] 500 mg 2-07 tablet by [facility] o f 24 hr 00:00: mouth 2 [place] tablet 00 (two) Medical times Branch daily with meals. triamterene 2019-09 Yes [id number] 1{tbl} Take 1 [facility] -hydrochlor 2-07 tablet by [facility] of othiazid 00:00: mouth [place] 37.5-25 mg 00 daily. Medical tablet Branch tiZANidine 2019-09 Yes [id number] 4mg Take 1-2 [facility] 4 mg tablet 2-07 [id number] tablets by [facility] of 00:00: mouth [place] 00 every 8 Medical (eight) Branch hours as needed (muscle pain or spasm). triamterene 2019-09 Yes [id number] 1{tbl} Take 1 [facility] -hydrochlor 2-07 tablet by [facility] of othiazid 00:00: mouth [place] 37.5-25 mg 00 daily. Medical tablet Branch tiZANidine 2019-09 Yes [id number] 4mg Take 1-2 [facility] 4 mg tablet 2-07 [id number] tablets by [facility] of 00:00: mouth [place] 00 every 8 Medical (eight) Branch hours as needed (muscle pain or spasm). triamterene 2019-09 Yes [id number] 1{tbl} Take 1 [facility] -hydrochlor 2-07 tablet by [facility]y of othiazid 00:00: mouth [place] 37.5-25 mg 00 daily. Medical tablet Branch tiZANidine 2019-09 Yes [id number] 4mg Take 1-2 [facility] 4 mg tablet 2-07 [id number] tablets by [facility] of 00:00: mouth [place] 00 every 8 Medical (eight) Branch hours as needed (muscle pain or spasm). triamterene 2019-09 Yes [id number] 1{tbl} Take 1 [facility] -hydrochlor 2-07 tablet by [facility]y of othiazid 00:00: mouth [place] 37.5-25 mg 00 daily. Medical tablet Branch tiZANidine 2019- Yes [id number] 4mg Take 1-2 [facility] 4 mg tablet 2-07 [id number] tablets by [facility] of 00:00: mouth [place] 00 every 8 Medical (eight) Branch hours as needed (muscle pain or spasm). triamterene 2020- Yes [id number] 1{tbl} Take 1 [facility] -hydrochlor 2-07 tablet by [facility] of othiazid 00:00: mouth [place] 37.5-25 mg 00 daily. Medical tablet Branch tiZANidine 2019- Yes [id number] 4mg Take 1-2 [facility] 4 mg tablet 2-07 [id number] tablets by [facility] of 00:00: mouth [place] 00 every 8 Medical (eight) Branch hours as needed (muscle pain or spasm). triamterene 2019- Yes [id number] 1{tbl} Take 1 [facility] -hydrochlor 2-07 tablet by [facility] of othiazid 00:00: mouth [place] 37.5-25 mg 00 daily. Medical tablet Branch tiZANidine 2019- Yes [id number] 4mg Take 1-2 [facility] 4 mg tablet 2-07 [id number] tablets by [facility] of 00:00: mouth [place] 00 every 8 Medical (eight) Branch hours as needed (muscle pain or spasm). triamterene 2019- Yes [id number] 1{tbl} Take 1 [facility] -hydrochlor 2-07 tablet by [facility]y of othiazid 00:00: mouth [place] 37.5-25 mg 00 daily. Medical tablet Branch tiZANidine 2019- Yes [id number] 4mg Take 1-2 [facility] 4 mg tablet 2-07 [id number] tablets by [facility] of 00:00: mouth [place] 00 every 8 Medical (eight) Branch hours as needed (muscle pain or spasm). triamterene 2019- Yes [id number] 1{tbl} Take 1 [facility] -hydrochlor 2-07 tablet by ity of othiazid 00:00: mouth [place] 37.5-25 mg 00 daily. Medical tablet Branch tiZANidine 2019- Yes [id number] 4mg Take 1-2 [facility] 4 mg tablet 2-07 [id number] tablets by [facility] of 00:00: mouth [place] 00 every 8 Medical (eight) Branch hours as needed (muscle pain or spasm). triamterene 2019- Yes [id number] 1{tbl} Take 1 [facility] -hydrochlor 2-07 tablet by [facility] of othiazid 00:00: mouth [place] 37.5-25 mg 00 daily. Medical tablet Branch tiZANidine 2019-09 Yes [id number] 4mg Take 1-2 [facility] 4 mg tablet 2-07 [id number] tablets by [facility] of 00:00: mouth [place] 00 every 8 Medical (eight) Branch hours as needed (muscle pain or spasm). tiZANidine 2019-09 Yes [id number] 4mg Take 1-2 [facility] 4 mg tablet 2-07 [id number] tablets by [facility] of 00:00: mouth [place] 00 every 8 Medical (eight) Branch hours as needed (muscle pain or spasm). tiZANidine 2019-09 Yes [id number] 4mg Take 1-2 [facility] 4 mg tablet 2-07 [id number] tablets by [facility] of 00:00: mouth [place] 00 every 8 Medical (eight) Branch hours as needed (muscle pain or spasm). tiZANidine 2019-09 Yes [id number] 4mg Take 1-2 [facility] 4 mg tablet 2-07 [id number] tablets by [facility] of 00:00: mouth [place] 00 every 8 Medical (eight) Branch hours as needed (muscle pain or spasm). tiZANidine 2019-09 Yes [id number] 4mg Take 1-2 [facility] 4 mg tablet 2-07 [id number] tablets by [facility] of 00:00: mouth [place] 00 every 8 Medical (eight) Branch hours as needed (muscle pain or spasm). tiZANidine 2019-09 Yes [id number] 4mg Take 1-2 [facility] 4 mg tablet 2-07 [id number] tablets by [facility] of 00:00: mouth [place] 00 every 8 Medical (eight) Branch hours as needed (muscle pain or spasm). tiZANidine 2019-09 Yes [id number] 4mg Take 1-2 [facility] 4 mg tablet 2-07 [id number] tablets by [facility] of 00:00: mouth [place] 00 every 8 Medical (eight) Branch hours as needed (muscle pain or spasm). tiZANidine 2019-09 Yes [id number] 4mg Take 1-2 [facility] 4 mg tablet 2-07 [id number] tablets by [facility] of 00:00: mouth [place] 00 every 8 Medical (eight) Branch hours as needed (muscle pain or spasm). tiZANidine 2019-09 Yes [id number] 4mg Take 1-2 [facility] 4 mg tablet 2- [id number] tablets by [facility] of 00:00: mouth [place] 00 every 8 Medical (eight) Branch hours as needed (muscle pain or spasm). tiZANidine 2019-09 Yes [id number] 4mg Take 1-2 [facility] 4 mg tablet 2- [id number] tablets by ity of 00:00: mouth [place] 00 every 8 Medical (eight) Branch hours as needed (muscle pain or spasm). tiZANidine 2019-09 Yes [id number] 4mg Take 1-2 [facility] 4 mg tablet 2- [id number] tablets by [facility] of 00:00: mouth [place] 00 every 8 Medical (eight) Branch hours as needed (muscle pain or spasm). tiZANidine 2019-09 Yes [id number] 4mg Take 1-2 [facility] 4 mg tablet 2- [id number] tablets by [facility] of 00:00: mouth [place] 00 every 8 Medical (eight) Branch hours as needed (muscle pain or spasm). tiZANidine 2019-09 Yes [id number] 4mg Take 1-2 [facility] 4 mg tablet 2- [id number] tablets by [facility] of 00:00: mouth [place] 00 every 8 Medical (eight) Branch hours as needed (muscle pain or spasm). triamterene 2019-09- No [id number] 1{tbl} Take 1 [facility] -hydrochlor 2-03 22-08 tablet by it y of othiazid 00:00: 00:00 mouth [place] 37.5-25 mg 00 :00 daily. Medical tablet Branch metformin 2019-09- No [id number] 500mg Take 1 [facility] ER 500 mg -03 21- tablet by [facility] of 24 hr 00:00: 00:00 mouth 2 [place] tablet 00 :00 (two) Medical times Branch daily with meals. metformin 2019-09- No [id number] 500mg Take 1 [facility] ER 500 mg 2-03 21-11 tablet by [facility] of 24 hr 00:00: 00:00 mouth 2 [place] tablet 00 :00 (two) Medical times Branch daily with meals. triamterene 2019-09- No [id number] 1{tbl} Take 1 [facility] -hydrochlor 2-03 28- tablet by it y of othiazid 00:00: 00:00 mouth [place] 37.5-25 mg 00 :00 daily. Medical tablet Branch triamterene 2019-09 2020- No [id number] 1{tbl} Take 1 [facility] -hydrochlor 2-03 28- tablet by it y of othiazid 00:00: 00:00 mouth [place] 37.5-25 mg 00 :00 daily. Medical tablet Branch METFORMIN 2019-09 Yes [id number] TAKE 1 [facility] [place] ER 750 mg 1-28 TABLET BY ity o f 24 hr 00:00: MOUTH [place] tablet 00 TWICE A Medical DAY WITH Branch MEALS METFORMIN 2019-09 Yes [id number] TAKE 1 [facility] [place] ER 750 mg -28 TABLET BY ity o f 24 hr 00:00: MOUTH [place] tablet 00 TWICE A Medical DAY WITH Branch MEALS METFORMIN 2019-09 2020- No [id number] TAKE 1 [facility] ER 750 mg -08-23 TABLET BY it[facility] of 24 hr 00:00: 00:00 MOUTH [place] tablet 00 :00 TWICE A Medical DAY WITH Branch MEALS METFORMIN 2019-09 2020- No [id number] TAKE 1 [facility] ER 750 mg 10-14 TABLET BY ity of 24 hr 00:00: 00:00 MOUTH [place] tablet 00 :00 TWICE A Medical DAY WITH Branch MEALS DOCOSAHEXAN 2019-09 Yes Take by [facility] OIC 0-23 mouth. ity of ACID/EPA 17:03: [place] (FISH OIL 43 Medical ORAL) Branch alcaftadine 2019-[address] [facility] (LASTACAFT) 0-23 each eye. ity of 0.25 % Drop 17:03: [place] [address] Medical Branch CYCLOSPORIN 2019-[address] in [facility] E (RESTASIS 0-23 each eye. ity of OPHTHALMIC) 17:03: [place] [address] Medical Branch DOCOSAHEXAN 2019-09 Yes Take by [facility] OIC 0-23 mouth. ity of ACID/EPA 17:03: [place] (FISH OIL 43 Medical ORAL) Branch vitamin E 2019-09 Yes 1000U Take 1,000 [facility] 1,000 unit 0-23 Units by ity o f capsule 17:03: mouth 43 daily. Medical Branch Magnesium 2019- Yes Take by [facility] ers 250 mg Tab 0-23 mouth. ity of 17:03: [place] [address] Medical Branch vitamin B-6 2019-09 Yes 100mg Take 100 [facility] (VITAMIN 0-23 mg by ity of B-6) 100 mg 17:03: mouth [place] tablet 43 daily. Medical Branch CALCIUM 2020- Yes Take by [facility] CARBONATE/V 0-23 mouth. ity of ITAMIN D3 17:03: [place] (VITAMIN 43 Medical D-3 ORAL) Branch alcaftadine 2020- Yes Place in [facility] (LASTACAFT) 0-23 each eye. ity of 0.25 % Drop 17:03: [place] [address] Medical Branch CYCLOSPORIN 2019- Yes Place in [facility] E (RESTASIS 0-23 each eye. ity of OPHTHALMIC) 17:03: [place] [address] Medical Branch DOCOSAHEXAN 2019- Yes Take by [facility] OIC 0-23 mouth. ity of ACID/EPA 17:03: [place] (FISH OIL 43 Medical ORAL) Branch vitamin E 2019- Yes 1000U Take 1,000 [facility] 1,000 unit 0-23 Units by ity o f capsule 17:03: mouth [place] 43 daily. Medical Branch Magnesium 2019- Yes Take by [facility] ers 250 mg Tab 0-23 mouth. ity of 17:03: [place] [address] Medical Branch vitamin B-6 2019-09 Yes 100mg Take 100 [facility] (VITAMIN 0-23 mg by ity of B-6) 100 mg 17:03: mouth [place] tablet 43 daily. Medical Branch CALCIUM 2019- Yes Take by [facility] CARBONATE/V 0-23 mouth. ity of ITAMIN D3 17:03: [place] (VITAMIN 43 Medical D-3 ORAL) Branch alcaftadine 2019-[address] in [facility] (LASTACAFT) 0-23 each eye. ity of 0.25 % Drop 17:03: [place] [address] Medical Branch CYCLOSPORIN 2019- Yes Place in [facility] E (RESTASIS 0-23 each eye. ity of OPHTHALMIC) 17:03: [place] [address] Medical Branch DOCOSAHEXAN 2019- Yes Take by [facility] OIC 0-23 mouth. ity of ACID/EPA 17:03: [place] (FISH OIL 43 Medical ORAL) Branch vitamin E 2019- Yes 1000U Take 1,000 [facility] 1,000 unit 0-23 Units by ity o f capsule 17:03: mouth [place] 43 daily. Medical Branch Magnesium 2020- Yes Take by [facility] ers 250 mg Tab 0-23 mouth. ity of 17:03: [place] [address] Medical Branch vitamin B-6 2019- Yes 100mg Take 100 [facility] (VITAMIN 0-23 mg by ity of B-6) 100 mg 17:03: mouth [place] tablet 43 daily. Medical Branch CALCIUM 2019- Yes Take by [facility] CARBONATE/V 0-23 mouth. ity of ITAMIN D3 17:03: [place] (VITAMIN 43 Medical D-3 ORAL) Branch alcaftadine 2019-[address] in [facility] (LASTACAFT) 0-23 each eye. ity of 0.25 % Drop 17:03: [place] [address] Medical Branch CYCLOSPORIN 2019- Yes Place in [facility] E (RESTASIS 0-23 each eye. ity of OPHTHALMIC) 17:03: [place] [address] Medical Branch DOCOSAHEXAN 2019-09 Yes Take by [facility] OIC 0-23 mouth. ity of ACID/EPA 17:03: [place] (FISH OIL 43 Medical ORAL) Branch vitamin E 2019-09 Yes 1000U Take 1,000 [facility] 1,000 unit 0-23 Units by ity o f capsule 17:03: mouth [place] 43 daily. Medical Branch Magnesium 2019- Yes Take by [facility] ers 250 mg Tab 0-23 mouth. ity of 17:03: [place] [address] Medical Branch vitamin B-6 2019-09 Yes 100mg Take 100 [facility] (VITAMIN 0-23 mg by ity of B-6) 100 mg 17:03: mouth [place] tablet 43 daily. Medical Branch CALCIUM 2019- Yes Take by [facility] CARBONATE/V 0-23 mouth. ity of ITAMIN D3 17:03: [place] (VITAMIN 43 Medical D-3 ORAL) Branch alcaftadine 2019-[address] in [facility] (LASTACAFT) 0-23 each eye. ity of 0.25 % Drop 17:03: [place] [address] Medical Branch CYCLOSPORIN 2019- Yes Place in [facility] E (RESTASIS 0-23 each eye. ity of OPHTHALMIC) 17:03: [place] [address] Medical Branch DOCOSAHEXAN 2019- Yes Take by [facility] OIC 0-23 mouth. ity of ACID/EPA 17:03: [place] (FISH OIL 43 Medical ORAL) Branch vitamin E 2019- Yes 1000U Take 1,000 [facility] 1,000 unit 0-23 Units by ity o f capsule 17:03: mouth [place] 43 daily. Medical Branch Magnesium 2020- Yes Take by [facility] ers 250 mg Tab 0-23 mouth. ity of 17:03: [place] [address] Medical Branch vitamin B-6 2019- Yes 100mg Take 100 [facility] (VITAMIN 0-23 mg by ity of B-6) 100 mg 17:03: mouth [place] tablet 43 daily. Medical Branch CALCIUM 2019- Yes Take by [facility] CARBONATE/V 0-23 mouth. ity of ITAMIN D3 17:03: [place] (VITAMIN 43 Medical D-3 ORAL) Branch alcaftadine 2019-[address] in [facility] (LASTACAFT) 0-23 each eye. ity of 0.25 % Drop 17:03: [place] [address] Medical Branch CYCLOSPORIN 2019-[address] in [facility] E (RESTASIS 0-23 each eye. ity of OPHTHALMIC) 17:03: [place] [address] Medical Branch DOCOSAHEXAN 2019-09 Yes Take by [facility] OIC 0-23 mouth. ity of ACID/EPA 17:03: [place] (FISH OIL 43 Medical ORAL) Branch vitamin E 2019-09 Yes 1000U Take 1,000 [facility] 1,000 unit 0-23 Units by ity o f capsule 17:03: mouth [place] 43 daily. Medical Branch Magnesium 2020- Yes Take by [facility] 250 mg Tab 0-23 mouth. ity of 17:03: [place] [address] Medical Branch vitamin B-6 2019-09 Yes 100mg Take 100 [facility] (VITAMIN 0-23 mg by ity of B-6) 100 mg 17:03: mouth [place] tablet 43 daily. Medical Branch CALCIUM 2019- Yes Take by [facility] CARBONATE/V 0-23 mouth. ity of ITAMIN D3 17:03: [place] (VITAMIN 43 Medical D-3 ORAL) Branch alcaftadine 2019- Yes Place in [facility] (LASTACAFT) 0-23 each eye. ity of 0.25 % Drop 17:03: [place] [address] Medical Branch CYCLOSPORIN 2019- Yes Place in [facility] E (RESTASIS 0-23 each eye. ity of OPHTHALMIC) 17:03: [place] [address] Medical Branch DOCOSAHEXAN 2019- Yes Take by [facility] OIC 0-23 mouth. ity of ACID/EPA 17:03: [place] (FISH OIL 43 Medical ORAL) Branch vitamin E 2020- Yes 1000U Take 1,000 [facility] 1,000 unit 0-23 Units by ity o f capsule 17:03: mouth [place] 43 daily. Medical Branch Magnesium 2020- Yes Take by [facility] 250 mg Tab 0-23 mouth. ity of 17:03: [place] [address] Medical Branch vitamin B-6 2019- Yes 100mg Take 100 [facility] (VITAMIN 0-23 mg by ity of B-6) 100 mg 17:03: mouth [place] tablet 43 daily. Medical Branch CALCIUM 2019- Yes Take by [facility] CARBONATE/V 0-23 mouth. ity of ITAMIN D3 17:03: [place] (VITAMIN 43 Medical D-3 ORAL) Branch alcaftadine 2019- Yes Place in [facility] (LASTACAFT) 0-23 each eye. ity of 0.25 % Drop 17:03: [place] [address] Medical Branch CYCLOSPORIN 2019-[address] in [facility] E (RESTASIS 0-23 each eye. ity of OPHTHALMIC) 17:03: [place] [address] Medical Branch DOCOSAHEXAN 2019-09 Yes Take by [facility] OIC 0-23 mouth. ity of ACID/EPA 17:03: [place] (FISH OIL 43 Medical ORAL) Branch vitamin E 2019- Yes 1000U Take 1,000 [facility] 1,000 unit 0-23 Units by ity o f capsule 17:03: mouth [place] 43 daily. Medical Branch Magnesium 2020- Yes Take by [facility] 250 mg Tab 0-23 mouth. ity of 17:03: [place] [address] Medical Branch vitamin B-6 2019-09 Yes 100mg Take 100 [facility] (VITAMIN 0-23 mg by ity of B-6) 100 mg 17:03: mouth [place] tablet 43 daily. Medical Branch CALCIUM 2019- Yes Take by [facility] CARBONATE/V 0-23 mouth. ity of ITAMIN D3 17:03: [place] (VITAMIN 43 Medical D-3 ORAL) Branch alcaftadine 2019- Yes Place in [facility] (LASTACAFT) 0-23 each eye. ity of 0.25 % Drop 17:03: [place] [address] Medical Branch CYCLOSPORIN 2019- Yes Place in [facility] E (RESTASIS 0-23 each eye. ity of OPHTHALMIC) 17:03: [place] [address] Medical Branch DOCOSAHEXAN 2019- Yes Take by [facility] OIC 0-23 mouth. ity of ACID/EPA 17:03: [place] (FISH OIL 43 Medical ORAL) Branch vitamin E 2019-09 Yes 1000U Take 1,000 [facility] 1,000 unit 0-23 Units by ity o f capsule 17:03: mouth [place] 43 daily. Medical Branch Magnesium 2019- Yes Take by [facility] 250 mg Tab 0-23 mouth. ity of 17:03: [place] [address] Medical Branch vitamin B-6 2019-09 Yes 100mg Take 100 [facility] (VITAMIN 0-23 mg by ity of B-6) 100 mg 17:03: mouth [place] tablet 43 daily. Medical Branch CALCIUM 2019-09 Yes Take by [facility] CARBONATE/V 0-23 mouth. ity of ITAMIN D3 17:03: [place] (VITAMIN 43 Medical D-3 ORAL) Branch alcaftadine 2019-[address] in [facility] (LASTACAFT) 0-23 each eye. ity of 0.25 % Drop 17:03: [place] [address] Medical Branch CYCLOSPORIN 2019-[address] in [facility] E (RESTASIS 0-23 each eye. ity of OPHTHALMIC) 17:03: [place] [address] Medical Branch DOCOSAHEXAN 2019-09 Yes Take by [facility] OIC 0-23 mouth. ity of ACID/EPA 17:03: [place] (FISH OIL 43 Medical ORAL) Branch vitamin E 2019-09 Yes 1000U Take 1,000 [facility] 1,000 unit 0-23 Units by ity o f capsule 17:03: mouth [place] 43 daily. Medical Branch Magnesium 2019-09 Yes Take by [facility] 250 mg Tab 0-23 mouth. ity of 17:03: [place] [address] Medical Branch vitamin B-6 2019-09 Yes 100mg Take 100 [facility] (VITAMIN 0-23 mg by ity of B-6) 100 mg 17:03: mouth [place] tablet 43 daily. Medical Branch CALCIUM 2019-09 Yes Take by [facility] CARBONATE/V 0-23 mouth. ity of ITAMIN D3 17:03: [place] (VITAMIN 43 Medical D-3 ORAL) Branch alcaftadine 2019-[address] in [facility] (LASTACAFT) 0-23 each eye. ity of 0.25 % Drop 17:03: [place] [address] Medical Branch CYCLOSPORIN 2019-[address] in [facility] E (RESTASIS 0-23 each eye. ity of OPHTHALMIC) 17:03: [place] [address] Medical Branch DOCOSAHEXAN 2019-09 Yes Take by [facility] OIC 0-23 mouth. ity of ACID/EPA 17:03: [place] (FISH OIL 43 Medical ORAL) Branch vitamin E 2019-09 Yes 1000U Take 1,000 [facility] 1,000 unit 0-23 Units by ity o f capsule 17:03: mouth [place] 43 daily. Medical Branch Magnesium 2019- Yes Take by [facility] 250 mg Tab 0-23 mouth. ity of 17:03: [place] [address] Medical Branch vitamin B-6 2019-09 Yes 100mg Take 100 [facility] (VITAMIN 0-23 mg by ity of B-6) 100 mg 17:03: mouth [place] tablet 43 daily. Medical Branch CALCIUM 2019-09 Yes Take by [facility] CARBONATE/V 0-23 mouth. ity of ITAMIN D3 17:03: [place] (VITAMIN 43 Medical D-3 ORAL) Branch alcaftadine 2019-[address] in [facility] (LASTACAFT) 0-23 each eye. ity of 0.25 % Drop 17:03: [place] [address] Medical Branch CYCLOSPORIN 2019-[address] in [facility] E (RESTASIS 0-23 each eye. ity of OPHTHALMIC) 17:03: [place] [address] Medical Branch DOCOSAHEXAN 2019-09 Yes Take by [facility] OIC 0-23 mouth. ity of ACID/EPA 17:03: [place] (FISH OIL 43 Medical ORAL) Branch vitamin E 2019-09 Yes 1000U Take 1,000 [facility] 1,000 unit 0-23 Units by ity o f capsule 17:03: mouth [place] 43 daily. Medical Branch Magnesium 2019-09 Yes Take by [facility] 250 mg Tab 0-23 mouth. ity of 17:03: [place] [address] Medical Branch vitamin B-6 2019-09 Yes 100mg Take 100 [facility] (VITAMIN 0-23 mg by ity of B-6) 100 mg 17:03: mouth [place] tablet 43 daily. Medical Branch CALCIUM 2019-09 Yes Take by [facility] CARBONATE/V 0-23 mouth. ity of ITAMIN D3 17:03: [place] (VITAMIN 43 Medical D-3 ORAL) Branch alcaftadine 2019-[address] in [facility] (LASTACAFT) 0-23 each eye. ity of 0.25 % Drop 17:03: [place] [address] Medical Branch CYCLOSPORIN 2019- Yes Place in [facility] E (RESTASIS 0-23 each eye. ity of OPHTHALMIC) 17:03: [place] [address] Medical Branch DOCOSAHEXAN 2020- Yes Take by [facility] OIC 0-23 mouth. ity of ACID/EPA 17:03: [place] (FISH OIL 43 Medical ORAL) Branch vitamin E 2020- Yes 1000U Take 1,000 [facility] 1,000 unit 0-23 Units by ity o f capsule 17:03: mouth [place] 43 daily. Medical Branch Magnesium 2020- Yes Take by [facility] 250 mg Tab 0-23 mouth. ity of 17:03: [place] [address] Medical Branch vitamin B-6 2019- Yes 100mg Take 100 [facility] (VITAMIN 0-23 mg by ity of B-6) 100 mg 17:03: mouth [place] tablet 43 daily. Medical Branch CALCIUM 2019- Yes Take by [facility] CARBONATE/V 0-23 mouth. ity of ITAMIN D3 17:03: [place] (VITAMIN 43 Medical D-3 ORAL) Branch alcaftadine 2019-[address] in [facility] (LASTACAFT) 0-23 each eye. ity of 0.25 % Drop 17:03: [place] [address] Medical Branch CYCLOSPORIN 2019- Yes Place in [facility] E (RESTASIS 0-23 each eye. ity of OPHTHALMIC) 17:03: [place] [address] [facility] DOCOSAHEXAN 2019- Yes Take by [facility] OIC 0-23 mouth. ity of ACID/EPA 17:03: [place] (FISH OIL 43 Medical ORAL) Branch vitamin E 2019- Yes 1000U Take 1,000 U [facility]ivers 1,000 unit 0-23 Units by ity o f capsule 17:03: mouth [place] 43 daily. [facility] Magnesium 2020- Yes Take by [facility] 250 mg Tab 0-23 mouth. ity of 17:03: [place] [address] [facility] vitamin B-6 2019- Yes 100mg Take 100 [facility] (VITAMIN 0-23 mg by ity of B-6) 100 mg 17:03: mouth [place] tablet 43 daily. [facility] CALCIUM 2019- Yes Take by [facility] CARBONATE/V 0-23 mouth. ity of ITAMIN D3 17:03: [place] (VITAMIN 43 Medical D-3 ORAL) Branch alcaftadine 2019- Yes Place in [facility] (LASTACAFT) 0-23 each eye. ity of 0.25 % Drop 17:03: [place] [address] [facility] CYCLOSPORIN 2019- Yes Place in [facility] E (RESTASIS 0-23 each eye. ity of OPHTHALMIC) 17:03: [place] [address] [facility] DOCOSAHEXAN 2019- Yes Take by [facility]IC 0-23 mouth. ity of ACID/EPA 17:03: [place] (FISH OIL 43 Medical ORAL) Branch vitamin E 2019- Yes 1000U Take 1,000 U [facility]ivers 1,000 unit 0-23 Units by ity o f capsule 17:03: mouth [place] 43 daily. [facility] Magnesium 2019- Yes Take by [facility] 250 mg Tab 0-23 mouth. ity of 17:03: [place] [address] [facility] vitamin B-6 2019-09 Yes 100mg Take 100 [facility] (VITAMIN 0-23 mg by ity of B-6) 100 mg 17:03: mouth [place] tablet 43 daily. [facility] CALCIUM 2019- Yes Take by [facility] CARBONATE/V 0-23 mouth. ity of ITAMIN D3 17:03: [place] (VITAMIN 43 Medical D-3 ORAL) Branch alcaftadine 2019-[address] in [facility] (LASTACAFT) 0-23 each eye. ity of 0.25 % Drop 17:03: [place] [address] [facility] CYCLOSPORIN 2019-[address] in [facility] E (RESTASIS 0-23 each eye. ity of OPHTHALMIC) 17:03: [place] [address] [facility] DOCOSAHEXAN 2019-09 Yes Take by [facility]IC 0-23 mouth. ity of ACID/EPA 17:03: [place] (FISH OIL 43 Medical ORAL) Branch vitamin E 2019-09 Yes 1000U Take 1,000 U [facility]ivers 1,000 unit 0-23 Units by ity o f capsule 17:03: mouth [place] 43 daily. [facility] Magnesium 2019- Yes Take by [facility] 250 mg Tab 0-23 mouth. ity of 17:03: [place] [address] [facility] vitamin B-6 2019- Yes 100mg Take 100 [facility] (VITAMIN 0-23 mg by ity of B-6) 100 mg 17:03: mouth [place] tablet 43 daily. [facility] CALCIUM 2019- Yes Take by [facility] CARBONATE/V 0-23 mouth. ity of ITAMIN D3 17:03: [place] (VITAMIN 43 Medical D-3 ORAL) Branch alcaftadine 2019-[address] in [facility] (LASTACAFT) 0-23 each eye. ity of 0.25 % Drop 17:03: [place] [address] [facility] CYCLOSPORIN 2020- Yes Place in [facility] E (RESTASIS 0-23 each eye. ity of OPHTHALMIC) 17:03: [place] [address] [facility] DOCOSAHEXAN 2019- Yes Take by [facility] 0-23 mouth. ity of ACID/EPA 17:03: [place] (FISH OIL 43 Medical ORAL) Branch vitamin E 2019- Yes 1000U Take 1,000 U [facility]ivers 1,000 unit 0-23 Units by ity o f capsule 17:03: mouth [place] 43 daily. [facility] Magnesium 2019- Yes Take by [facility] 250 mg Tab 0-23 mouth. ity of 17:03: [place] [address] [facility] vitamin B-6 2019-09 Yes 100mg Take 100 [facility] (VITAMIN 0-23 mg by ity of B-6) 100 mg 17:03: mouth [place] tablet 43 daily. [facility] CALCIUM 2019- Yes Take by [facility] CARBONATE/V 0-23 mouth. ity of ITAMIN D3 17:03: [place] (VITAMIN 43 Medical D-3 ORAL) Branch alcaftadine 2019-[address] in [facility] (LASTACAFT) 0-23 each eye. ity of 0.25 % Drop 17:03: [place] [address] [facility] CYCLOSPORIN 2019- Yes Place in [facility] E (RESTASIS 0-23 each eye. ity of OPHTHALMIC) 17:03: [place] [address] [facility] DOCOSAHEXAN 2019- Yes Take by [facility]IC 0-23 mouth. ity of ACID/EPA 17:03: [place] (FISH OIL 43 Medical ORAL) Branch vitamin E 2019- Yes 1000U Take 1,000 U [facility]ivers 1,000 unit 0-23 Units by ity o f capsule 17:03: mouth [place] 43 daily. [facility] Magnesium 2020- Yes Take by [facility] 250 mg Tab 0-23 mouth. ity of 17:03: [place] [address] [facility] vitamin B-6 2019- Yes 100mg Take 100 [facility] (VITAMIN 0-23 mg by ity of B-6) 100 mg 17:03: mouth [place] tablet 43 daily. [facility] CALCIUM 2019- Yes Take by [facility] CARBONATE/V 0-23 mouth. ity of ITAMIN D3 17:03: [place] (VITAMIN 43 Medical D-3 ORAL) Branch alcaftadine 2020- Yes Place in [facility] (LASTACAFT) 0-23 each eye. ity of 0.25 % Drop 17:03: [place] [address] [facility] CYCLOSPORIN 2020- Yes Place in [facility] E (RESTASIS 0-23 each eye. ity of OPHTHALMIC) 17:03: [place] [address] [facility] DOCOSAHEXAN 2019- Yes Take by [facility]IC 0-23 mouth. ity of ACID/EPA 17:03: [place] (FISH OIL 43 Medical ORAL) Branch vitamin E 2019- Yes 1000U Take 1,000 U nivers 1,000 unit 0-23 Units by ity o f capsule 17:03: mouth [place] 43 daily. [facility] Magnesium 2019- Yes Take by [facility] 250 mg Tab 0-23 mouth. ity of 17:03: [place] [address] [facility] vitamin B-6 2019- Yes 100mg Take 100 [facility] (VITAMIN 0-23 mg by ity of B-6) 100 mg 17:03: mouth [place] tablet 43 daily. [facility] CALCIUM 2019- Yes Take by [facility] CARBONATE/V 0-23 mouth. ity of ITAMIN D3 17:03: [place] (VITAMIN 43 Medical D-3 ORAL) Branch alcaftadine 2019-[address] in [facility] (LASTACAFT) 0-23 each eye. ity of 0.25 % Drop 17:03: [place] [address] [facility] CYCLOSPORIN 2019-[address] in [facility] E (RESTASIS 0-23 each eye. ity of OPHTHALMIC) 17:03: [place] [address] [facility] DOCOSAHEXAN 2019- Yes Take by [facility]IC 0-23 mouth. ity of ACID/EPA 17:03: [place] (FISH OIL 43 Medical ORAL) Branch vitamin E 2019- Yes 1000U Take 1,000 U nivers 1,000 unit 0-23 Units by ity o f capsule 17:03: mouth [place] 43 daily. [facility] Magnesium 2020- Yes Take by [facility] 250 mg Tab 0-23 mouth. ity of 17:03: [place] [address] [facility] vitamin B-6 2019- Yes 100mg Take 100 [facility] (VITAMIN 0-23 mg by ity of B-6) 100 mg 17:03: mouth [place] tablet 43 daily. [facility] CALCIUM 2020- Yes Take by Un[facility] CARBONATE/V 0-23 mouth. ity of ITAMIN D3 17:03: [place] (VITAMIN 43 Medical D-3 ORAL) Branch alcaftadine 2020- Yes Place in [facility] (LASTACAFT) 0-23 each eye. ity of 0.25 % Drop 17:03: [place] [address] [facility] CYCLOSPORIN 2019- Yes Place in [facility] E (RESTASIS 0-23 each eye. ity of OPHTHALMIC) 17:03: [place] [address] [facility] DOCOSAHEXAN 2019-09 Yes Take by [facility] 0-23 mouth. ity of ACID/EPA 17:03: [place] (FISH OIL 43 Medical ORAL) Branch vitamin E 2019-09 Yes 1000U Take 1,000 U [facility]ivers 1,000 unit 0-23 Units by ity o f capsule 17:03: mouth [place] 43 daily. [facility] Magnesium 2019- Yes Take by [facility] 250 mg Tab 0-23 mouth. ity of 17:03: [place] [address] [facility] vitamin B-6 2019-09 Yes 100mg Take 100 [facility] (VITAMIN 0-23 mg by ity of B-6) 100 mg 17:03: mouth [place] tablet 43 daily. [facility] CALCIUM 2019- Yes Take by [facility] CARBONATE/V 0-23 mouth. ity of ITAMIN D3 17:03: [place] (VITAMIN 43 Medical D-3 ORAL) Branch alcaftadine 2019-[address] in [facility] (LASTACAFT) 0-23 each eye. ity of 0.25 % Drop 17:03: [place] [address] [facility] CYCLOSPORIN 2019-[address] in [facility] E (RESTASIS 0-23 each eye. ity of OPHTHALMIC) 17:03: [place] [address] [facility] DOCOSAHEXAN 2019- Yes Take by [facility] 0-23 mouth. ity of ACID/EPA 17:03: [place] (FISH OIL 43 Medical ORAL) Branch vitamin E 2019- Yes 1000U Take 1,000 U [facility] 1,000 unit 0-23 Units by ity o f capsule 17:03: mouth [place] 43 daily. [facility] Magnesium 2019- Yes Take by [facility] 250 mg Tab 0-23 mouth. ity of 17:03: [place] [address] [facility] vitamin B-6 2019- Yes 100mg Take 100 [facility] (VITAMIN 0-23 mg by ity of B-6) 100 mg 17:03: mouth [place] tablet 43 daily. [facility] CALCIUM 2020- Yes Take by [facility] CARBONATE/V 0-23 mouth. ity of ITAMIN D3 17:03: [place] (VITAMIN 43 Medical D-3 ORAL) Branch alcaftadine 2020- Yes Place in [facility] (LASTACAFT) 0-23 each eye. ity of 0.25 % Drop 17:03: [place] [address] [facility] CYCLOSPORIN 2019- Yes Place in [facility] E (RESTASIS 0-23 each eye. ity of OPHTHALMIC) 17:03: [place] [address] [facility] DOCOSAHEXAN 2019- Yes Take by [facility] 0-23 mouth. ity of ACID/EPA 17:03: [place] (FISH OIL 43 Medical ORAL) Branch vitamin E 2019- Yes 1000U Take 1,000 U [facility] 1,000 unit 0-23 Units by ity o f capsule 17:03: mouth [place] 43 daily. [facility] Magnesium 2019- Yes Take by [facility] 250 mg Tab 0-23 mouth. ity of 17:03: [place] [address] [facility] vitamin B-6 2019- Yes 100mg Take 100 [facility] (VITAMIN 0-23 mg by ity of B-6) 100 mg 17:03: mouth [place] tablet 43 daily. [facility] CALCIUM 2019- Yes Take by [facility] CARBONATE/V 0-23 mouth. ity of ITAMIN D3 17:03: [place] (VITAMIN 43 Medical D-3 ORAL) Branch alcaftadine 2019-[address] in [facility] (LASTACAFT) 0-23 each eye. ity of 0.25 % Drop 17:03: [place] [address] [facility] CYCLOSPORIN 2019- Yes Place in [facility] E (RESTASIS 0-23 each eye. ity of OPHTHALMIC) 17:03: [place] [address] [facility] DOCOSAHEXAN 2019- Yes Take by [facility]IC 0-23 mouth. ity of ACID/EPA 17:03: [place] (FISH OIL 43 Medical ORAL) Branch vitamin E 2019- Yes 1000U Take 1,000 U [facility]ivers 1,000 unit 0-23 Units by ity o f capsule 17:03: mouth [place] 43 daily. [facility] Magnesium 2020- Yes Take by [facility] 250 mg Tab 0-23 mouth. ity of 17:03: [place] [address] [facility] vitamin B-6 2019- Yes 100mg Take 100 [facility] (VITAMIN 0-23 mg by ity of B-6) 100 mg 17:03: mouth [place] tablet 43 daily. [facility] CALCIUM 2019- Yes Take by [facility] CARBONATE/V 0-23 mouth. ity of ITAMIN D3 17:03: [place] (VITAMIN 43 Medical D-3 ORAL) Branch alcaftadine 2019- Yes Place in [facility] (LASTACAFT) 0-23 each eye. ity of 0.25 % Drop 17:03: [place] [address] [facility] CYCLOSPORIN 2019- Yes Place in [facility] E (RESTASIS 0-23 each eye. ity of OPHTHALMIC) 17:03: [place] [address] [facility] DOCOSAHEXAN 2019- Yes Take by [facility] 0-23 mouth. ity of ACID/EPA 17:03: [place] (FISH OIL 43 Medical ORAL) Branch vitamin E 2019-09 Yes 1000U Take 1,000 U nivers 1,000 unit 0-23 Units by ity o f capsule 17:03: mouth [place] 43 daily. [facility] Magnesium 2019- Yes Take by [facility] 250 mg Tab 0-23 mouth. ity of 17:03: [place] [address] [facility] vitamin B-6 2019-09 Yes 100mg Take 100 [facility] (VITAMIN 0-23 mg by ity of B-6) 100 mg 17:03: mouth [place] tablet 43 daily. [facility] CALCIUM 2019- Yes Take by Un[facility] CARBONATE/V 0-23 mouth. ity of ITAMIN D3 17:03: [place] (VITAMIN 43 Medical D-3 ORAL) Branch alcaftadine 2019-[address] in [facility] (LASTACAFT) 0-23 each eye. ity of 0.25 % Drop 17:03: [place] [address] [facility] CYCLOSPORIN 2019- Yes Place in [facility] E (RESTASIS 0-23 each eye. ity of OPHTHALMIC) 17:03: [place] [address] [facility] DOCOSAHEXAN 2019- Yes Take by [facility] 0-23 mouth. ity of ACID/EPA 17:03: [place] (FISH OIL 43 Medical ORAL) Branch vitamin E 2020- Yes 1000U Take 1,000 U nivers 1,000 unit 0-23 Units by ity o f capsule 17:03: mouth [place] 43 daily. [facility] Magnesium 2020- Yes Take by [facility] 250 mg Tab 0-23 mouth. ity of 17:03: [place] [address] [facility] vitamin B-6 2019-09 Yes 100mg Take 100 [facility] (VITAMIN 0-23 mg by ity of B-6) 100 mg 17:03: mouth [place] tablet 43 daily. [facility] CALCIUM 2019- Yes Take by [facility] CARBONATE/V 0-23 mouth. ity of ITAMIN D3 17:03: [place] (VITAMIN 43 Medical D-3 ORAL) Branch alcaftadine 2019-[address] in [facility] (LASTACAFT) 0-23 each eye. ity of 0.25 % Drop 17:03: [place] [address] [facility] CYCLOSPORIN 2019-[address] in [facility] E (RESTASIS 0-23 each eye. ity of OPHTHALMIC) 17:03: [place] [address] [facility] DOCOSAHEXAN 2019-09 Yes Take by [facility] 0-23 mouth. ity of ACID/EPA 17:03: [place] (FISH OIL 43 Medical ORAL) Branch vitamin E 2019-09 Yes 1000U Take 1,000 U [facility]ivers 1,000 unit 0-23 Units by ity o f capsule 17:03: mouth [place] 43 daily. [facility] Magnesium 2019- Yes Take by [facility] 250 mg Tab 0-23 mouth. ity of 17:03: [place] [address] [facility] vitamin B-6 2019-09 Yes 100mg Take 100 [facility] (VITAMIN 0-23 mg by ity of B-6) 100 mg 17:03: mouth [place] tablet 43 daily. [facility] CALCIUM 2019-09 Yes Take by [facility] CARBONATE/V 0-23 mouth. ity of ITAMIN D3 17:03: [place] (VITAMIN 43 Medical D-3 ORAL) Branch alcaftadine 2019-[address] in [facility] (LASTACAFT) 0-23 each eye. ity of 0.25 % Drop 17:03: [place] [address] [facility] CYCLOSPORIN 2019-[address] in [facility] E (RESTASIS 0-23 each eye. ity of OPHTHALMIC) 17:03: [place] [address] [facility] DOCOSAHEXAN 2019-09 Yes Take by [facility] 0-23 mouth. ity of ACID/EPA 17:03: [place] (FISH OIL 43 Medical ORAL) Branch vitamin E 2019- Yes 1000U Take 1,000 U nivers 1,000 unit 0-23 Units by ity o f capsule 17:03: mouth [place] 43 daily. [facility] Magnesium 2020- Yes Take by [facility] 250 mg Tab 0-23 mouth. ity of 17:03: [place] [address] [facility] vitamin B-6 2019-09 Yes 100mg Take 100 [facility] (VITAMIN 0-23 mg by ity of B-6) 100 mg 17:03: mouth [place] tablet 43 daily. [facility] CALCIUM 2019-09 Yes Take by [facility] CARBONATE/V 0-23 mouth. ity of ITAMIN D3 17:03: [place] (VITAMIN 43 Medical D-3 ORAL) Branch alcaftadine 2019-[address] in [facility] (LASTACAFT) 0-23 each eye. ity of 0.25 % Drop 17:03: [place] [address] [facility] CYCLOSPORIN 2019-[address] in [facility] E (RESTASIS 0-23 each eye. ity of OPHTHALMIC) 17:03: [place] [address] [facility] DOCOSAHEXAN 2019-09 Yes Take by [facility] 0-23 mouth. ity of ACID/EPA 17:03: [place] (FISH OIL 43 Medical ORAL) Branch vitamin E 2019-09 Yes 1000U Take 1,000 U nivers 1,000 unit 0-23 Units by ity o f capsule 17:03: mouth [place] 43 daily. [facility] Magnesium 2019- Yes Take by [facility] 250 mg Tab 0-23 mouth. ity of 17:03: [place] [address] [facility] vitamin B-6 2019-09 Yes 100mg Take 100 [facility] (VITAMIN 0-23 mg by ity of B-6) 100 mg 17:03: mouth [place] tablet 43 daily. [facility] CALCIUM 2019-09 Yes Take by Un[facility] CARBONATE/V 0-23 mouth. ity of ITAMIN D3 17:03: [place] (VITAMIN 43 Medical D-3 ORAL) Branch alcaftadine 2019-[address] in [facility] (LASTACAFT) 0-23 each eye. ity of 0.25 % Drop 17:03: [place] [address] [facility] CYCLOSPORIN 2019-[address] in [facility] E (RESTASIS 0-23 each eye. ity of OPHTHALMIC) 17:03: [place] [address] [facility] DOCOSAHEXAN 2019-09 Yes Take by [facility] 0-23 mouth. ity of ACID/EPA 17:03: [place] (FISH OIL 43 Medical ORAL) Branch vitamin E 2019- Yes 1000U Take 1,000 U [facility] 1,000 unit 0-23 Units by ity o f capsule 17:03: mouth [place] 43 daily. [facility] Magnesium 2019- Yes Take by [facility] 250 mg Tab 0-23 mouth. ity of 17:03: [place] [address] [facility] vitamin B-6 2019-09 Yes 100mg Take 100 [facility] (VITAMIN 0-23 mg by ity of B-6) 100 mg 17:03: mouth [place] tablet 43 daily. [facility] CALCIUM 2019- Yes Take by Un[facility] s CARBONATE/V 0-23 mouth. ity of ITAMIN D3 17:03: [place] (VITAMIN 43 Medical D-3 ORAL) Branch alcaftadine 2019-[address] in [facility] (LASTACAFT) 0-23 each eye. ity of 0.25 % Drop 17:03: [place] [address] [facility] CYCLOSPORIN 2019-[address] in [facility] E (RESTASIS 0-23 each eye. ity of OPHTHALMIC) 17:03: [place] [address] [facility] DOCOSAHEXAN 2019-09 Yes Take by [facility] 0-23 mouth. ity of ACID/EPA 17:03: [place] (FISH OIL 43 Medical ORAL) Branch vitamin E 2019-09 Yes 1000U Take 1,000 U [facility] 1,000 unit 0-23 Units by ity o f capsule 17:03: mouth [place] 43 daily. [facility] Magnesium 2019- Yes Take by [facility] 250 mg Tab 0-23 mouth. ity of 17:03: [place] [address] [facility] vitamin B-6 2019-09 Yes 100mg Take 100 [facility] (VITAMIN 0-23 mg by ity of B-6) 100 mg 17:03: mouth [place] tablet 43 daily. [facility] CALCIUM 2019-09 Yes Take by [facility] CARBONATE/V 0-23 mouth. ity of ITAMIN D3 17:03: [place] (VITAMIN 43 Medical D-3 ORAL) Branch alcaftadine 2019-[address] in [facility] (LASTACAFT) 0-23 each eye. ity of 0.25 % Drop 17:03: [place] [address] [facility] CYCLOSPORIN 2019- Yes Place in [facility] E (RESTASIS 0-23 each eye. ity of OPHTHALMIC) 17:03: [place] [address] [facility] DOCOSAHEXAN 2019 Yes Take by [facility] 0-23 mouth. ity of ACID/EPA 17:03: [place] (FISH OIL 43 Medical ORAL) Branch vitamin E 2019-09 Yes 1000U Take 1,000 [facility] 1,000 unit 0-23 Units by ity o f capsule 17:03: mouth [place] 43 daily. [facility] Magnesium 2019- Yes Take by [facility] 250 mg Tab 0-23 mouth. ity of 17:03: [place] [address] [facility] vitamin B-6 2019-09 Yes 100mg Take 100 [facility] (VITAMIN 0-23 mg by ity of B-6) 100 mg 17:03: mouth [place] tablet 43 daily. [facility] CALCIUM 2019-09 Yes Take by [facility] CARBONATE/V 0-23 mouth. ity of ITAMIN D3 17:03: [place] (VITAMIN 43 Medical D-3 ORAL) Branch alcaftadine 2019-[address] in [facility] (LASTACAFT) 0-23 each eye. ity of 0.25 % Drop 17:03: [place] [address] [facility] CYCLOSPORIN 2019-[address] in [facility] E (RESTASIS 0-23 each eye. ity of OPHTHALMIC) 17:03: [place] [address] [facility] DOCOSAHEXAN 2019-09 Yes Take by [facility] 0-23 mouth. ity of ACID/EPA 17:03: [place] (FISH OIL 43 Medical ORAL) Branch vitamin E 2019-09 Yes 1000U Take 1,000 [facility] 1,000 unit 0-23 Units by ity o f capsule 17:03: mouth [place] 43 daily. [facility] Magnesium 2019- Yes Take by [facility] 250 mg Tab 0-23 mouth. ity of 17:03: [place] [address] [facility] vitamin B-6 2019-09 Yes 100mg Take 100 [facility] (VITAMIN 0-23 mg by ity of B-6) 100 mg 17:03: mouth [place] tablet 43 daily. [facility] Branch CALCIUM 2019-09 Yes Take by [facility] CARBONATE/V 0-23 mouth. ity of ITAMIN D3 17:03: [place] (VITAMIN 43 Medical D-3 ORAL) Branch alcaftadine 2019-[address] in [facility] (LASTACAFT) 0-23 each eye. ity of 0.25 % Drop 17:03: [place] [address] [facility] CYCLOSPORIN 2019- Yes Place in [facility] E (RESTASIS 0-23 each eye. ity of OPHTHALMIC) 17:03: [place] [address] [facility] DOCOSAHEXAN 2020- Yes Take by [facility] 0-23 mouth. ity of ACID/EPA 17:03: [place] (FISH OIL 43 Medical ORAL) Branch vitamin E 2020- Yes 1000U Take 1,000 [facility] 1,000 unit 0-23 Units by ity o f capsule 17:03: mouth [place] 43 daily. [facility] Magnesium 2019- Yes Take by [facility] 250 mg Tab 0-23 mouth. ity of 17:03: [place] [address] [facility] vitamin B-6 2019- Yes 100mg Take 100 [facility] (VITAMIN 0-23 mg by ity of B-6) 100 mg 17:03: mouth [place] tablet 43 daily. [facility] CALCIUM 2019- Yes Take by [facility] CARBONATE/V 0-23 mouth. ity of ITAMIN D3 17:03: [place] (VITAMIN 43 Medical D-3 ORAL) Branch alcaftadine 2019-[address] in [facility] (LASTACAFT) 0-23 each eye. ity of 0.25 % Drop 17:03: [place] [address] [facility] CYCLOSPORIN 2019-[address] in [facility] E (RESTASIS 0-23 each eye. ity of OPHTHALMIC) 17:03: [place] [address] [facility] DOCOSAHEXAN 2019-09 Yes Take by [facility] 0-23 mouth. ity of ACID/EPA 17:03: [place] (FISH OIL 43 Medical ORAL) Branch vitamin E 2019-09 Yes 1000U Take 1,000 [facility] 1,000 unit 0-23 Units by ity o f capsule 17:03: mouth [place] 43 daily. [facility] Magnesium 2019- Yes Take by [facility] 250 mg Tab 0-23 mouth. ity of 17:03: [place] [address] [facility] vitamin B-6 2019- Yes 100mg Take 100 [facility] (VITAMIN 0-23 mg by ity of B-6) 100 mg 17:03: mouth [place] tablet 43 daily. [facility] CALCIUM 2019- Yes Take by [facility] CARBONATE/V 0-23 mouth. ity of ITAMIN D3 17:03: [place] (VITAMIN 43 Medical D-3 ORAL) Branch alcaftadine 2019-[address] in [facility] (LASTACAFT) 0-23 each eye. ity of 0.25 % Drop 17:03: [place] [address] [facility] CYCLOSPORIN 2020- Yes Place in [facility] E (RESTASIS 0-23 each eye. ity of OPHTHALMIC) 17:03: [place] [address] [facility] DOCOSAHEXAN 2019- Yes Take by [facility] 0-23 mouth. ity of ACID/EPA 17:03: [place] (FISH OIL 43 Medical ORAL) Branch vitamin E 2019- Yes 1000U Take 1,000 U [facility]ivers 1,000 unit 0-23 Units by ity o f capsule 17:03: mouth [place] 43 daily. [facility] Magnesium 2019- Yes Take by [facility] 250 mg Tab 0-23 mouth. ity of 17:03: [place] [address] [facility] vitamin B-6 2019-09 Yes 100mg Take 100 [facility] (VITAMIN 0-23 mg by ity of B-6) 100 mg 17:03: mouth [place] tablet 43 daily. [facility] CALCIUM 2019- Yes Take by [facility] CARBONATE/V 0-23 mouth. ity of ITAMIN D3 17:03: [place] (VITAMIN 43 Medical D-3 ORAL) Branch alcaftadine 2019-[address] in [facility] (LASTACAFT) 0-23 each eye. ity of 0.25 % Drop 17:03: [place] [address] [facility] CYCLOSPORIN 2019-[address] in [facility] E (RESTASIS 0-23 each eye. ity of OPHTHALMIC) 17:03: [place] [address] [facility] DOCOSAHEXAN 2019- Yes Take by [facility] 0-23 mouth. ity of ACID/EPA 17:03: [place] (FISH OIL 43 Medical ORAL) Branch vitamin E 2019- Yes 1000U Take 1,000 U [facility]ivers 1,000 unit 0-23 Units by ity o f capsule 17:03: mouth [place] 43 daily. [facility] Magnesium 2019- Yes Take by [facility] 250 mg Tab 0-23 mouth. ity of 17:03: [place] [address] [facility] vitamin B-6 2019- Yes 100mg Take 100 [facility] (VITAMIN 0-23 mg by ity of B-6) 100 mg 17:03: mouth [place] tablet 43 daily. [facility] CALCIUM 2019- Yes Take by [facility] CARBONATE/V 0-23 mouth. ity of ITAMIN D3 17:03: [place] (VITAMIN 43 Medical D-3 ORAL) Branch alcaftadine 2019- Yes Place in [facility] (LASTACAFT) 0-23 each eye. ity of 0.25 % Drop 17:03: [place] [address] [facility] CYCLOSPORIN 2020- Yes Place in [facility] E (RESTASIS 0-23 each eye. ity of OPHTHALMIC) 17:03: [place] [address] [facility] DOCOSAHEXAN 2019-09 Yes Take by [facility] 0-23 mouth. ity of ACID/EPA 17:03: [place] (FISH OIL 43 Medical ORAL) Branch vitamin E 2019- Yes 1000U Take 1,000 U [facility]ivers 1,000 unit 0-23 Units by ity o f capsule 17:03: mouth [place] 43 daily. [facility] Magnesium 2019- Yes Take by [facility] 250 mg Tab 0-23 mouth. ity of 17:03: [place] [address] [facility] vitamin B-6 2019-09 Yes 100mg Take 100 [facility] (VITAMIN 0-23 mg by ity of B-6) 100 mg 17:03: mouth [place] tablet 43 daily. [facility] CALCIUM 2019-09 Yes Take by [facility] CARBONATE/V 0-23 mouth. ity of ITAMIN D3 17:03: [place] (VITAMIN 43 Medical D-3 ORAL) Branch alcaftadine 2019-[address] in [facility] (LASTACAFT) 0-23 each eye. ity of 0.25 % Drop 17:03: [place] [address] [facility] CYCLOSPORIN 2019-[address] in [facility] E (RESTASIS 0-23 each eye. ity of OPHTHALMIC) 17:03: [place] [address] [facility] DOCOSAHEXAN 2019-09 Yes Take by [facility] 0-23 mouth. ity of ACID/EPA 17:03: [place] (FISH OIL 43 Medical ORAL) Branch vitamin E 2019- Yes 1000U Take 1,000 U [facility]ivers 1,000 unit 0-23 Units by ity o f capsule 17:03: mouth [place] 43 daily. [facility] Magnesium 2020- Yes Take by [facility] 250 mg Tab 0-23 mouth. ity of 17:03: [place] [address] [facility] vitamin B-6 2019-09 Yes 100mg Take 100 [facility] (VITAMIN 0-23 mg by ity of B-6) 100 mg 17:03: mouth [place] tablet 43 daily. [facility] CALCIUM 2019- Yes Take by Un[facility] CARBONATE/V 0-23 mouth. ity of ITAMIN D3 17:03: [place] (VITAMIN 43 Medical D-3 ORAL) Branch alcaftadine 2020- Yes Place in [facility] (LASTACAFT) 0-23 each eye. ity of 0.25 % Drop 17:03: [place] [address] [facility] CYCLOSPORIN 2020- Yes Place in [facility] E (RESTASIS 0-23 each eye. ity of OPHTHALMIC) 17:03: [place] [address] [facility] DOCOSAHEXAN 2019- Yes Take by [facility] 0-23 mouth. ity of ACID/EPA 17:03: [place] (FISH OIL 43 Medical ORAL) Branch vitamin E 2019- Yes 1000U Take 1,000 [facility] 1,000 unit 0-23 Units by ity o f capsule 17:03: mouth [place] 43 daily. [facility] Magnesium 2019- Yes Take by [facility] 250 mg Tab 0-23 mouth. ity of 17:03: [place] [address] [facility] vitamin B-6 2019- Yes 100mg Take 100 [facility] (VITAMIN 0-23 mg by ity of B-6) 100 mg 17:03: mouth [place] tablet 43 daily. Medical Branch CALCIUM 2019- Yes Take by Univer s CARBONATE/V 0-23 mouth. ity of ITAMIN D3 17:03: [place] (VITAMIN 43 Medical D-3 ORAL) Branch alcaftadine 2019-[address] in U nivers (LASTACAFT) 0-23 each eye. ity of 0.25 % Drop 17:03: [place] [address] [facility] Branch CYCLOSPORIN 2019-[address] in U [facility]ivers E (RESTASIS 0-23 each eye. ity of OPHTHALMIC) 17:03: [place] [address] [facility] Branch DOCOSAHEXAN 2019- Yes Take by [facility] OIC 0-23 mouth. ity of ACID/EPA 17:03: [place] (FISH OIL 43 Medical ORAL) Branch vitamin E 2019- Yes 1000U Take 1,000 U nivers 1,000 unit 0-23 Units by ity o f capsule 17:03: mouth [place] 43 daily. Medical Branch Magnesium 2020- Yes Take by Univ ers 250 mg Tab 0-23 mouth. ity of 17:03: [place] [address] [facility] Branch vitamin B-6 2019- Yes 100mg Take 100 U [facility]ivers (VITAMIN 0-23 mg by ity of B-6) 100 mg 17:03: mouth [place] tablet 43 daily. Medical Branch CALCIUM 2020- Yes Take by Univer s CARBONATE/V 0-23 mouth. ity of ITAMIN D3 17:03: [place] (VITAMIN 43 Medical D-3 ORAL) Branch alcaftadine 2019- Yes Place in [facility] (LASTACAFT) 0-23 each eye. ity of 0.25 % Drop 17:03: [place] [address] [facility] Branch CYCLOSPORIN 2019- Yes Place in U [facility] E (RESTASIS 0-23 each eye. ity of OPHTHALMIC) 17:03: [place] [address] [facility] Branch DOCOSAHEXAN 2019-09 Yes Take by [facility] [facility] 0-23 mouth. ity of ACID/EPA 17:03: [place] (FISH OIL 43 Medical ORAL) Branch vitamin E 2019-09 Yes 1000U Take 1,000 U [facility]ivers 1,000 unit 0-23 Units by ity o f capsule 17:03: mouth [place] 43 daily. Medical Branch Magnesium 2019- Yes Take by Univ ers 250 mg Tab 0-23 mouth. ity of 17:03: [place] [address] [facility] Branch vitamin B-6 2019-09 Yes 100mg Take 100 U [facility]ivers (VITAMIN 0-23 mg by ity of B-6) 100 mg 17:03: mouth [place] tablet 43 daily. Medical Branch CALCIUM 2019- Yes Take by Univer s CARBONATE/V 0-23 mouth. ity of ITAMIN D3 17:03: [place] (VITAMIN 43 Medical D-3 ORAL) Branch alcaftadine 2019-[address] in [facility]ivers (LASTACAFT) 0-23 each eye. ity of 0.25 % Drop 17:03: [place] [address] [facility] Branch CYCLOSPORIN 2019-[address] in [facility] E (RESTASIS 0-23 each eye. ity of OPHTHALMIC) 17:03: [place] [address] [facility] Branch DOCOSAHEXAN 2019- Yes Take by [facility] [facility] 0-23 mouth. ity of ACID/EPA 17:03: [place] (FISH OIL 43 Medical ORAL) Branch vitamin E 2019- Yes 1000U Take 1,000 U [facility]ivers 1,000 unit 0-23 Units by ity o f capsule 17:03: mouth [place] 43 daily. Medical Branch Magnesium 2019- Yes Take by Univ ers 250 mg Tab 0-23 mouth. ity of 17:03: [place] [address] [facility] Branch vitamin B-6 2019- Yes 100mg Take 100 [facility] (VITAMIN 0-23 mg by ity of B-6) 100 mg 17:03: mouth [place] tablet 43 daily. Medical Branch CALCIUM 2020- Yes Take by Univer s CARBONATE/V 0-23 mouth. ity of ITAMIN D3 17:03: [place] (VITAMIN 43 Medical D-3 ORAL) Branch alcaftadine 2019- Yes Place in [facility]ivers (LASTACAFT) 0-23 each eye. ity of 0.25 % Drop 17:03: [place] [address] [facility] Branch CYCLOSPORIN 2019- Yes Place in U [facility] E (RESTASIS 0-23 each eye. ity of OPHTHALMIC) 17:03: [place] [address] [facility] Branch DOCOSAHEXAN 2019- Yes Take by [facility] [place] [facility] 0-23 mouth. ity of ACID/EPA 17:03: [place] (FISH OIL 43 Medical ORAL) Branch vitamin E 2019-09 Yes 1000U Take 1,000 U [facility]ivers 1,000 unit 0-23 Units by ity o f capsule 17:03: mouth [place] 43 daily. Medical Branch Magnesium 2019- Yes Take by Univ ers 250 mg Tab 0-23 mouth. ity of 17:03: [place] [address] [facility] Branch vitamin B-6 2019- Yes 100mg Take 100 U [facility] (VITAMIN 0-23 mg by ity of B-6) 100 mg 17:03: mouth [place] tablet 43 daily. Medical Branch CALCIUM 2019- Yes Take by Univer s CARBONATE/V 0-23 mouth. ity of ITAMIN D3 17:03: [place] (VITAMIN 43 Medical D-3 ORAL) Branch alcaftadine 2019-[address] in [facility]ivers (LASTACAFT) 0-23 each eye. ity of 0.25 % Drop 17:03: [place] [address] [facility] Branch CYCLOSPORIN 2019- Yes Place in U [facility] E (RESTASIS 0-23 each eye. ity of OPHTHALMIC) 17:03: [place] [address] [facility] Branch DOCOSAHEXAN 2019- Yes Take by [facility] [place] [facility] 0-23 mouth. ity of ACID/EPA 17:03: [place] (FISH OIL 43 Medical ORAL) Branch vitamin E 2019- Yes 1000U Take 1,000 U nivers 1,000 unit 0-23 Units by ity o f capsule 17:03: mouth [place] 43 daily. Medical Branch Magnesium 2020- Yes Take by Univ ers 250 mg Tab 0-23 mouth. ity of 17:03: [place] [address] [facility] Branch vitamin B-6 2019- Yes 100mg Take 100 U [facility] (VITAMIN 0-23 mg by ity of B-6) 100 mg 17:03: mouth [place] tablet 43 daily. Medical Branch CALCIUM 2019- Yes Take by Univer s CARBONATE/V 0-23 mouth. ity of ITAMIN D3 17:03: [place] (VITAMIN 43 Medical D-3 ORAL) Branch alcaftadine 2020- Yes Place in [facility]ivers (LASTACAFT) 0-23 each eye. ity of 0.25 % Drop 17:03: [place] [address] [facility] Branch CYCLOSPORIN 2019- Yes Place in [facility] E (RESTASIS 0-23 each eye. ity of OPHTHALMIC) 17:03: [place] [address] [facility] Branch DOCOSAHEXAN 2019- Yes Take by [facility] [place] [facility] 0-23 mouth. ity of ACID/EPA 17:03: [place] (FISH OIL 43 Medical ORAL) Branch vitamin E 2019- Yes 1000U Take 1,000 U nivers 1,000 unit 0-23 Units by ity o f capsule 17:03: mouth [place] 43 daily. Medical Branch Magnesium 2020- Yes Take by Univ ers 250 mg Tab 0-23 mouth. ity of 17:03: [place] [address] [facility] Branch vitamin B-6 2019-09 Yes 100mg Take 100 U [facility]ivers (VITAMIN 0-23 mg by ity of B-6) 100 mg 17:03: mouth [place] tablet 43 daily. Medical Branch CALCIUM 2019- Yes Take by Univer s CARBONATE/V 0-23 mouth. ity of ITAMIN D3 17:03: [place] (VITAMIN 43 Medical D-3 ORAL) Branch alcaftadine 2019-[address] in [facility]ivers (LASTACAFT) 0-23 each eye. ity of 0.25 % Drop 17:03: [place] [address] [facility] Branch CYCLOSPORIN 2019- Yes Place in [facility] E (RESTASIS 0-23 each eye. ity of OPHTHALMIC) 17:03: [place] [address] [facility] Branch DOCOSAHEXAN 2019- Yes Take by [facility] [place] [facility] 0-23 mouth. ity of ACID/EPA 17:03: [place] (FISH OIL 43 Medical ORAL) Branch vitamin E 2020- Yes 1000U Take 1,000 U nivers 1,000 unit 0-23 Units by ity o f capsule 17:03: mouth [place] 43 daily. Medical Branch Magnesium 2020- Yes Take by [facility] ers 250 mg Tab 0-23 mouth. ity of 17:03: [place] [address] [facility] Branch vitamin B-6 2019- Yes 100mg Take 100 [facility] (VITAMIN 0-23 mg by ity of B-6) 100 mg 17:03: mouth [place] tablet 43 daily. Medical Branch CALCIUM 2019- Yes Take by Univer s CARBONATE/V 0-23 mouth. ity of ITAMIN D3 17:03: [place] (VITAMIN 43 Medical D-3 ORAL) Branch alcaftadine 2019- Yes Place in [facility]ivers (LASTACAFT) 0-23 each eye. ity of 0.25 % Drop 17:03: [place] [address] [facility] Branch CYCLOSPORIN 2019-[address] in [facility] E (RESTASIS 0-23 each eye. ity of OPHTHALMIC) 17:03: [place] [address] [facility] Branch DOCOSAHEXAN 2019-09 Yes Take by [facility] [place] [facility] 0-23 mouth. ity of ACID/EPA 17:03: [place] (FISH OIL 43 Medical ORAL) Branch vitamin E 2019-09 Yes 1000U Take 1,000 U nivers 1,000 unit 0-23 Units by ity o f capsule 17:03: mouth [place] 43 daily. Medical Branch Magnesium 2019- Yes Take by [facility] ers 250 mg Tab 0-23 mouth. ity of 17:03: [place] [address] [facility] Branch vitamin B-6 2019-09 Yes 100mg Take 100 U [facility]ivers (VITAMIN 0-23 mg by ity of B-6) 100 mg 17:03: mouth [place] tablet 43 daily. Medical Branch CALCIUM 2019- Yes Take by Univer s CARBONATE/V 0-23 mouth. ity of ITAMIN D3 17:03: [place] (VITAMIN 43 Medical D-3 ORAL) Branch alcaftadine 2019-[address] in [facility]ivers (LASTACAFT) 0-23 each eye. ity of 0.25 % Drop 17:03: [place] [address] [facility] Branch CYCLOSPORIN 2019- Yes Place in U [facility]ivers E (RESTASIS 0-23 each eye. ity of OPHTHALMIC) 17:03: [place] [address] [facility] Branch DOCOSAHEXAN 2019-09 Yes Take by [facility] [place] [facility] 0-23 mouth. ity of ACID/EPA 17:03: [place] (FISH OIL 43 Medical ORAL) Branch vitamin E 2019- Yes 1000U Take 1,000 U nivers 1,000 unit 0-23 Units by ity o f capsule 17:03: mouth [place] 43 daily. Medical Branch Magnesium 2020- Yes Take by Univ ers 250 mg Tab 0-23 mouth. ity of 17:03: [place] [address] [facility] Branch vitamin B-6 2019- Yes 100mg Take 100 U [facility]ivers (VITAMIN 0-23 mg by ity of B-6) 100 mg 17:03: mouth [place] tablet 43 daily. Medical Branch CALCIUM 2019- Yes Take by Univer s CARBONATE/V 0-23 mouth. ity of ITAMIN D3 17:03: [place] (VITAMIN 43 Medical D-3 ORAL) Branch alcaftadine 2019-[address] in [facility]ivers (LASTACAFT) 0-23 each eye. ity of 0.25 % Drop 17:03: [place] [address] [facility] Branch CYCLOSPORIN 2019-[address] in U nivers E (RESTASIS 0-23 each eye. ity of OPHTHALMIC) 17:03: [place] [address] [facility] Branch DOCOSAHEXAN 2019-09 Yes Take by [facility] [place] [facility] 0-23 mouth. ity of ACID/EPA 17:03: [place] (FISH OIL 43 Medical ORAL) Branch vitamin E 2019-09 Yes 1000U Take 1,000 U nivers 1,000 unit 0-23 Units by ity o f capsule 17:03: mouth [place] 43 daily. Medical Branch Magnesium 2019- Yes Take by Univ ers 250 mg Tab 0-23 mouth. ity of 17:03: [place] [address] [facility] Branch vitamin B-6 2019-09 Yes 100mg Take 100 U nivers (VITAMIN 0-23 mg by ity of B-6) 100 mg 17:03: mouth [place] tablet 43 daily. Medical Branch CALCIUM 2019-09 Yes Take by Univer s CARBONATE/V 0-23 mouth. ity of ITAMIN D3 17:03: [place] (VITAMIN 43 Medical D-3 ORAL) Branch alcaftadine 2019-[address] in U nivers (LASTACAFT) 0-23 each eye. ity of 0.25 % Drop 17:03: [place] [address] [facility] Branch CYCLOSPORIN 2019- Yes Place in U nivers E (RESTASIS 0-23 each eye. ity of OPHTHALMIC) 17:03: [place] [address] [facility] Branch DOCOSAHEXAN 2019- Yes Take by [facility] [place] [facility] 0-23 mouth. ity of ACID/EPA 17:03: [place] (FISH OIL 43 Medical ORAL) Branch vitamin E 2020- Yes 1000U Take 1,000 U nivers 1,000 unit 0-23 Units by ity o f capsule 17:03: mouth [place] 43 daily. Medical Branch Magnesium 2020- Yes Take [address] [facility] ers 250 mg Tab 0-23 mouth. ity of 17:03: [place] 43 Medical Branch vitamin B-6 2019- Yes 100mg Take 100 U nivers (VITAMIN 0-23 mg by ity of B-6) 100 mg 17:03: mouth [place] tablet 43 daily. Medical Branch CALCIUM 2020- Yes Take by [place] [facility] s CARBONATE/V 0-23 mouth. ity of ITAMIN D3 17:03: [place] (VITAMIN 43 Medical D-3 ORAL) Branch DOCOSAHEXAN 2019-09 Yes Take by [facility] [place] [facility] 0-23 mouth. ity of ACID/EPA 17:03: [place] (FISH OIL 43 Medical ORAL) Branch DOCOSAHEXAN 2019-09 Yes Take by [facility] [place] [facility] 0-23 mouth. ity of ACID/EPA 17:03: [place] (FISH OIL 43 Medical ORAL) Branch DOCOSAHEXAN 2019- Yes Take by [facility] [place] [facility] 0-23 mouth. ity of ACID/EPA 17:03: [place] (FISH OIL 43 Medical ORAL) Branch DOCOSAHEXAN 2019- Yes Take by [facility] [place] [facility] 0-23 mouth. ity of ACID/EPA 17:03: [place] (FISH OIL 43 Medical ORAL) Branch DOCOSAHEXAN 2019- Yes Take by [facility] [place] [facility] 0-23 mouth. ity of ACID/EPA 17:03: [place] (FISH OIL 43 Medical ORAL) Branch DOCOSAHEXAN 2019- Yes Take by [facility] [place] [facility] 0-23 mouth. ity of ACID/EPA 17:03: [place] (FISH OIL 43 Medical ORAL) Branch DOCOSAHEXAN 2019- Yes Take by [facility] [place] [facility] 0-23 mouth. ity of ACID/EPA 17:03: [place] (FISH OIL 43 Medical ORAL) Branch DOCOSAHEXAN 2020- Yes Take by [facility] [place] [facility] 0-23 mouth. ity of ACID/EPA 17:03: [place] (FISH OIL 43 Medical ORAL) Branch DOCOSAHEXAN 2020- Yes Take by [facility] [place] [facility] 0-23 mouth. ity of ACID/EPA 17:03: [place] (FISH OIL 43 Medical ORAL) Branch DOCOSAHEXAN 2019- Yes Take by [facility] [place] [facility] 0-23 mouth. ity of ACID/EPA 17:03: [place] (FISH OIL 43 Medical ORAL) Branch DOCOSAHEXAN 2019- Yes Take by [facility] [place] [facility] 0-23 mouth. ity of ACID/EPA 17:03: [place] (FISH OIL 43 Medical ORAL) Branch DOCOSAHEXAN 2019- Yes Take by [facility] [place] [facility] 0-23 mouth. ity of ACID/EPA 17:03: [place] (FISH OIL 43 Medical ORAL) Branch DOCOSAHEXAN 2019- Yes Take by [facility] [place] [facility] 0-23 mouth. ity of ACID/EPA 17:03: [place] (FISH OIL 43 Medical ORAL) Branch DOCOSAHEXAN 2019- Yes Take by [facility] [place] [facility] 0-23 mouth. ity of ACID/EPA 17:03: [place] (FISH OIL 43 Medical ORAL) Branch DOCOSAHEXAN 2019- Yes Take by [facility] [place] [facility] 0-23 mouth. ity of ACID/EPA 12:03: [place] (FISH OIL 43 Medical ORAL) Branch DOCOSAHEXAN 2019- Yes Take by [facility] [place] [facility] 0-23 mouth. ity of ACID/EPA 12:03: [place] (FISH OIL 43 Medical ORAL) Branch metoprolol 2019- Yes [id number] 25mg Take 1 U nivers succinate 0-23 tablet by ity o f XL 25 mg 24 00:00: mouth 2 [place] tablet 00 (two) Medical times [place] daily. metoprolol 2020- Yes [id number] 25mg Take 1 U nivers succinate 0-23 tablet by ity o f XL 25 mg 24 00:00: mouth 2 [place] tablet 00 (two) Medical times Branch daily. LEVOTHYROXI 2020- Yes [id number] TAKE 1 [facility] [place] 50 mcg 0-23 TABLET BY ity o f tablet 00:00: MOUTH [place] 00 EVERY DAY Medical IN THE Branch MORNING metoprolol 2019- Yes [id number] 25mg Take 1 U nivers succinate 0-23 tablet by ity o f XL 25 mg 24 00:00: mouth 2 [place] tablet 00 (two) Medical times Branch daily. LEVOTHYROXI 2020- Yes [id number] TAKE 1 [facility] [place] 50 mcg 0-23 TABLET BY ity o f tablet 00:00: MOUTH [place] 00 EVERY DAY Medical IN THE [place] MORNING metoprolol 2020- Yes [id number] 25mg Take 1 U nivers succinate 0-23 tablet by ity o f XL 25 mg 24 00:00: mouth 2 [place] tablet 00 (two) Medical times [place] daily. LEVOTHYROXI 2020- Yes [id number] TAKE 1 [facility] [place] 50 mcg 0-23 TABLET BY ity o f tablet 00:00: MOUTH [place] 00 EVERY DAY Medical IN THE [place] MORNING metoprolol 2019- Yes [id number] 25mg Take 1 U nivers succinate 0-23 tablet by ity o f XL 25 mg 24 00:00: mouth 2 [place] tablet 00 (two) Medical times [place] daily. LEVOTHYROXI 2020- Yes [id number] TAKE 1 [facility] [place] 50 mcg 0-23 TABLET BY ity o f tablet 00:00: MOUTH [place] 00 EVERY DAY Medical IN THE [place] MORNING metoprolol 2019- Yes [id number] 25mg Take 1 U nivers succinate 0-23 tablet by ity o f XL 25 mg 24 00:00: mouth 2 [place] tablet 00 (two) Medical times [place] daily. LEVOTHYROXI 2019- Yes [id number] TAKE 1 [facility] [place] 50 mcg 0-23 TABLET BY ity o f tablet 00:00: MOUTH [place] 00 EVERY DAY Medical IN THE [place] MORNING metoprolol 2019- Yes [id number] 25mg Take 1 U nivers succinate 0-23 tablet by ity o f XL 25 mg 24 00:00: mouth 2 [place] tablet 00 (two) Medical times [place] daily. LEVOTHYROXI 2020- Yes [id number] TAKE 1 [facility] [place] 50 mcg 0-23 TABLET BY ity o f tablet 00:00: MOUTH [place] 00 EVERY DAY Medical IN THE [place] MORNING metoprolol 2019- Yes [id number] 25mg Take 1 U nivers succinate 0-23 tablet by ity o f XL 25 mg 24 00:00: mouth 2 [place] tablet 00 (two) Medical times [place] daily. LEVOTHYROXI 2020- Yes [id number] TAKE 1 [facility] [place] 50 mcg 0-23 TABLET BY ity o f tablet 00:00: MOUTH [place] 00 EVERY DAY Medical IN THE [place] MORNING metoprolol 2020- Yes [id number] 25mg Take 1 U nivers succinate 0-23 tablet by ity o f XL 25 mg 24 00:00: mouth 2 [place] tablet 00 (two) Medical times Branch daily. LEVOTHYROXI 2020- Yes [id number] TAKE 1 [facility] [place] 50 mcg 0-23 TABLET BY ity o f tablet 00:00: MOUTH [place] 00 EVERY DAY Medical IN THE Branch MORNING metoprolol 2019- Yes [id number] 25mg Take 1 U nivers succinate 0-23 tablet by ity o f XL 25 mg 24 00:00: mouth 2 [place] tablet 00 (two) Medical times Branch daily. LEVOTHYROXI 2019- Yes [id number] TAKE 1 [facility] [place] 50 mcg 0-23 TABLET BY ity o f tablet 00:00: MOUTH [place] 00 EVERY DAY Medical IN THE Branch MORNING metoprolol 2019- Yes [id number] 25mg Take 1 U nivers succinate 0-23 tablet by ity o f XL 25 mg 24 00:00: mouth 2 [place] tablet 00 (two) Medical times Branch daily. LEVOTHYROXI 2019- Yes [id number] TAKE 1 [facility] [place] 50 mcg 0-23 TABLET BY ity o f tablet 00:00: MOUTH [place] 00 EVERY DAY Medical IN THE Branch MORNING metoprolol 2019- Yes [id number] 25mg Take 1 U nivers succinate 0-23 tablet by ity o f XL 25 mg 24 00:00: mouth 2 [place] tablet 00 (two) Medical times Branch daily. LEVOTHYROXI 2019- Yes [id number] TAKE 1 [facility] [place] 50 mcg 0-23 TABLET BY ity o f tablet 00:00: MOUTH [place] 00 EVERY DAY Medical IN THE Branch MORNING metoprolol 2019- Yes [id number] 25mg Take 1 U nivers succinate 0-23 tablet by ity o f XL 25 mg 24 00:00: mouth 2 [place] tablet 00 (two) Medical times Branch daily. LEVOTHYROXI 2020- Yes [id number] TAKE 1 [facility] [place] 50 mcg 0-23 TABLET BY ity o f tablet 00:00: MOUTH [place] 00 EVERY DAY Medical IN THE Branch MORNING metoprolol 2020- Yes [id number] 25mg Take 1 U nivers succinate 0-23 tablet by ity o f XL 25 mg 24 00:00: mouth 2 [place] tablet 00 (two) Medical times Branch daily. LEVOTHYROXI 2019- Yes [id number] TAKE 1 [facility] [place] 50 mcg 0-23 TABLET BY ity o f tablet 00:00: MOUTH [place] 00 EVERY DAY Medical IN THE [facility] LEVOTHYROXI 2020 Yes [id number] TAKE 1 [facility] [place] 50 mcg 0-23 TABLET BY ity o f tablet 00:00: MOUTH [place] 00 EVERY DAY Medical IN THE [facility] LEVOTHYROXI 2019-09 Yes [id number] TAKE 1 [facility] [place] 50 mcg 0-23 TABLET BY ity o f tablet 00:00: MOUTH [place] 00 EVERY DAY Medical IN THE [facility] LEVOTHYROXI 2019-09 Yes [id number] TAKE 1 [facility] [place] 50 mcg 0-23 TABLET BY ity o f tablet 00:00: MOUTH [place] 00 EVERY DAY Medical IN THE [facility] LEVOTHYROXI 2019-09 Yes [id number] TAKE 1 [facility] [place] 50 mcg 0-23 TABLET BY ity o f tablet 00:00: MOUTH [place] 00 EVERY DAY Medical IN THE [facility] LEVOTHYROXI 2019-09 Yes [id number] TAKE 1 [facility] [place] 50 mcg 0-23 TABLET BY ity o f tablet 00:00: MOUTH [place] 00 EVERY DAY Medical IN THE [facility] LEVOTHYROXI 2019-09 Yes [id number] TAKE 1 [facility] [place] 50 mcg 0-23 TABLET BY ity o f tablet 00:00: MOUTH [place] 00 EVERY DAY Medical IN THE [facility] LEVOTHYROXI 2019-09 Yes [id number] TAKE 1 [facility] [place] 50 mcg 0-23 TABLET BY ity o f tablet 00:00: MOUTH [place] 00 EVERY DAY Medical IN THE [facility] LEVOTHYROXI 2019-09 Yes [id number] TAKE 1 [facility] [place] 50 mcg 0-23 TABLET BY ity o f tablet 00:00: MOUTH [place] 00 EVERY DAY Medical IN THE [facility] LEVOTHYROXI 2019-09 Yes [id number] TAKE 1 [facility] [place] 50 mcg 0-23 TABLET BY ity o f tablet 00:00: MOUTH [place] 00 EVERY DAY Medical IN THE [facility] LEVOTHYROXI 2020 Yes [id number] TAKE 1 [facility] [place] 50 mcg 0-23 TABLET BY ity o f tablet 00:00: MOUTH [place] 00 EVERY DAY Medical IN THE [facility] LEVOTHYROXI 2019-09 Yes [id number] TAKE 1 [facility] [place] 50 mcg 0-23 TABLET BY ity o f tablet 00:00: MOUTH [place] 00 EVERY DAY Medical IN THE [facility] LEVOTHYROXI 2019-09 Yes [id number] TAKE 1 [facility] [place] 50 mcg 0-23 TABLET BY ity o f tablet 00:00: MOUTH [place] 00 EVERY DAY Medical IN THE [facility] LEVOTHYROXI 2020 Yes [id number] TAKE 1 [facility] [place] 50 mcg 0-23 TABLET BY ity o f tablet 00:00: MOUTH [place] 00 EVERY DAY Medical IN THE [facility] LEVOTHYROXI 2019-09 Yes [id number] TAKE 1 [facility] [place] 50 mcg 0-23 TABLET BY ity o f tablet 00:00: MOUTH [place] 00 EVERY DAY Medical IN THE [facility] LEVOTHYROXI 2019-09 Yes [id number] TAKE 1 [facility] [place] 50 mcg 0-23 TABLET BY ity o f tablet 00:00: MOUTH [place] 00 EVERY DAY Medical IN THE [facility] LEVOTHYROXI 2019-09 Yes [id number] TAKE 1 [facility] [place] 50 mcg 0-23 TABLET BY ity o f tablet 00:00: MOUTH [place] 00 EVERY DAY Medical IN THE [facility] LEVOTHYROXI 2019-09 Yes [id number] TAKE 1 [facility] [place] 50 mcg 0-23 TABLET BY ity o f tablet 00:00: MOUTH [place] 00 EVERY DAY Medical IN THE [facility] LEVOTHYROXI 2019-09 Yes [id number] TAKE 1 [facility] [place] 50 mcg 0-23 TABLET BY ity o f tablet 00:00: MOUTH [place] 00 EVERY DAY Medical IN THE [facility] LEVOTHYROXI 2019-09 Yes [id number] TAKE 1 [facility] [place] 50 mcg 0-23 TABLET BY ity o f tablet 00:00: MOUTH [place] 00 EVERY DAY Medical IN THE [facility] LEVOTHYROXI 2019-09 Yes [id number] TAKE 1 [facility] [place] 50 mcg 0-23 TABLET BY ity o f tablet 00:00: MOUTH [place] 00 EVERY DAY Medical IN THE [facility] LEVOTHYROXI 2019-09 Yes [id number] TAKE 1 [facility] [place] 50 mcg 0-23 TABLET BY ity o f tablet 00:00: MOUTH [place] 00 EVERY DAY Medical IN THE [facility] LEVOTHYROXI 2019-09 Yes [id number] TAKE 1 [facility] [place] 50 mcg 0-23 TABLET BY ity o f tablet 00:00: MOUTH [place] 00 EVERY DAY Medical IN THE [facility] LEVOTHYROXI 2019-09 Yes [id number] TAKE 1 [facility] [place] 50 mcg 0-23 TABLET BY ity o f tablet 00:00: MOUTH [place] 00 EVERY DAY Medical IN THE [facility] LEVOTHYROXI 2019-09 Yes [id number] TAKE 1 [facility] [place] 50 mcg 0-23 TABLET BY ity o f tablet 00:00: MOUTH [place] 00 EVERY DAY Medical IN THE [place] MORNING LEVOTHYROXI 2019-09 Yes [id number] TAKE 1 [facility] [place] 50 mcg 0-23 TABLET BY ity o f tablet 00:00: MOUTH [place] 00 EVERY DAY Medical IN THE [facility] LEVOTHYROXI 2019-09 Yes [id number] TAKE 1 [facility] [place] 50 mcg 0-23 TABLET BY ity o f tablet 00:00: MOUTH [place] 00 EVERY DAY Medical IN THE [facility] LEVOTHYROXI 2019-09 Yes [id number] TAKE 1 [facility] [place] 50 mcg 0-23 TABLET BY ity o f tablet 00:00: MOUTH [place] 00 EVERY DAY Medical IN THE [facility] LEVOTHYROXI 2019-09 Yes [id number] TAKE 1 [facility] [place] 50 mcg 0-23 TABLET BY ity o f tablet 00:00: MOUTH [place] 00 EVERY DAY Medical IN THE [facility] LEVOTHYROXI 2019-09 Yes [id number] TAKE 1 [facility] [place] 50 mcg 0-23 TABLET BY ity o f tablet 00:00: MOUTH [place] 00 EVERY DAY Medical IN THE [facility] LEVOTHYROXI 2019-09 Yes [id number] TAKE 1 [facility] [place] 50 mcg 0-23 TABLET BY ity o f tablet 00:00: MOUTH [place] 00 EVERY DAY Medical IN THE [facility] LEVOTHYROXI 2019-09 Yes [id number] TAKE 1 [facility] [place] 50 mcg 0-23 TABLET BY ity o f tablet 00:00: MOUTH [place] 00 EVERY DAY Medical IN THE [facility] LEVOTHYROXI 2019-09- No [id number] TAKE 1 [facility] 50 mcg 0-23 05-05 TABLET BY ity of tablet 00:00: 00:00 MOUTH [place] 00 :00 EVERY DAY Medical IN THE [facility] MORNING metoprolol 2019-09- No [id number] 25mg Take 1 [facility] succinate 0-23 12-09 tablet by ity of XL 25 mg 24 00:00: 00:00 mouth 2 [place] hr tablet 00 :00 (two) Medical times [place] daily. metoprolol 2019-09- No [id number] 25mg Take 1 [facility] succinate 0-23 12-09 tablet by ity of XL 25 mg 24 00:00: 00:00 mouth 2 [place] hr tablet 00 :00 (two) Medical times [place] daily. metoprolol 2019-09 No [id number] 25mg Take 1 [facility] succinate 0-23 12-09 tablet by ity of XL 25 mg 24 00:00: 00:00 mouth 2 [place] hr tablet 00 :00 (two) Medical times Branch daily. ASCORBATE 2019-09 2020- No Take by Uni vers CALCIUM 0-05 10-05 mouth. ity of (VITAMIN C 20:39: 00:00 [place] ORAL) 59 :00 Medical Branch ASCORBATE 2019-09 2020- No Take by Uni vers CALCIUM 0-05 10-05 mouth. ity of (VITAMIN C 20:39: 00:00 [place] ORAL) 59 :00 Medical Branch CYCLOSPORIN 2019-[address] in U nivers E (RESTASIS 0-05 each eye. ity of OPHTHALMIC) 20:35: Medical Branch DOCOSAHEXAN 2019-09 Yes Take by [facility] [place] OIC 0-05 mouth. ity of ACID/EPA 20:35: [place] (FISH OIL 33 Medical ORAL) Branch vitamin E 2019-09 Yes 1000U Take 1,000 U nivers 1,000 unit 0-05 Units by ity o f capsule 20:35: mouth [place] 33 daily. Medical Branch Magnesium 2019-09 Yes Take by Univ ers 250 mg Tab 0-05 mouth. ity of 20:35: [place] [id number] Medical Branch vitamin B-6 2019-09 Yes 100mg Take 100 U nivers (VITAMIN 0-05 mg by ity of B-6) 100 mg 20:35: mouth [place] tablet 33 daily. Medical Branch CYCLOSPORIN 2019-[address] in U nivers E (RESTASIS 0-05 each eye. ity of OPHTHALMIC) 20:35: Medical Branch DOCOSAHEXAN 2019-09 Yes Take by [facility] [place] OIC 0-05 mouth. ity of ACID/EPA 20:35: [place] (FISH OIL 33 Medical ORAL) Branch vitamin E 2019-09 Yes 1000U Take 1,000 [facility] 1,000 unit 0-05 Units by ity o f capsule 20:35: mouth [place] 33 daily. Medical [facility] Magnesium 2019-09 Yes Take by [facility] 250 mg Tab 0-05 mouth. ity of 20:35: [place] [address] Medical Branch vitamin B-6 2019-09 Yes 100mg Take 100 [facility] (VITAMIN 0-05 mg by ity of B-6) 100 mg 20:35: mouth [place] tablet 33 daily. Medical Branch CYCLOSPORIN 2020- Yes Place in [facility] E (RESTASIS 0-05 each eye. ity of OPHTHALMIC) 20:35: Medical Branch DOCOSAHEXAN 2019- Yes Take by [...] ity of OPHTHALMIC) 20:35: Medical Branch DOCOSAHEXAN 2019- Yes Take by [facility] OIC 0-05 mouth. ity of ACID/EPA 20:35: [place] (FISH OIL 33 Medical ORAL) Branch vitamin [...] [place] tablet 33 daily. Medical [facility] CYCLOSPORIN 2019- Yes Place in [facility] E (RESTASIS 0-05 each eye. ity of OPHTHALMIC) 20:35: Medical Branch DOCOSAHEXAN 2019- Yes Take by [facility] 0-05 mouth. ity of ACID/EPA 20:35: [place] (FISH OIL 33 Medical ORAL) Branch vitamin E 2019- Yes 1000U Take 1,000 [facility] 1,000 unit 0-05 Units by ity o f capsule 20:35: mouth [place] 33 daily. Medical Branch Magnesium 2020- Yes Take by [facility] 250 mg Tab 0-05 mouth. ity of 20:35: Medical Branch vitamin B-6 2019- Yes 100mg Take 100 [facility] (VITAMIN 0-05 mg by ity of B-6) 100 mg 20:35: mouth [place] tablet 33 daily. Medical Branch CYCLOSPORIN 2019- Yes Place in [facility] E (RESTASIS 0-05 each eye. ity of OPHTHALMIC) 20:35: Medical Branch DOCOSAHEXAN 2019-09 Yes Take by [facility]IC 0-05 mouth. ity of ACID/EPA 20:35: [place] (FISH OIL 33 Medical ORAL) Branch vitamin [...] OIC 0-05 mouth. ity of ACID/EPA 20:35: [place] (FISH OIL 33 Medical ORAL) Branch vitamin [...] ity of OPHTHALMIC) 20:35: Medical Branch DOCOSAHEXAN 2019- Yes Take by [facility] 0-05 mouth. ity of ACID/EPA 20:35: [place] (FISH OIL 33 Medical ORAL) Branch vitamin E 2019- Yes 1000U Take 1,000 [facility] 1,000 unit 0-05 Units by ity o f capsule 20:35: mouth [place] 33 daily. [facility] Magnesium 2019- Yes Take by [facility] 250 mg Tab 0-05 mouth. ity of 20:35: [place] 33 Medical Branch vitamin B-6 2019- Yes 100mg Take 100 [facility] (VITAMIN 0-05 mg by ity of B-6) 100 mg 20:35: mouth [place] tablet 33 daily. Medical Branch metoprolol 2019-09 Yes [id number] 25mg Take 1 [facility] succinate 0-05 tablet by ity o f XL 25 mg 24 00:00: mouth [place] hr tablet 00 every day Medic al at 1200 Branch (noon). metformin 2019-09 Yes [id number] 750mg Take 1 [facility] ER 750 mg 0-05 tablet by ity o f 24 hr 00:00: mouth 2 [place] tablet 00 (two) Medical times [facility] daily with meals. DOSE INCREASE. metoprolol 2019-09 Yes [id number] 25mg Take 1 [facility] succinate 0-05 tablet by ity o f XL 25 mg 24 00:00: mouth [place] hr tablet 00 every day Medic al at 1200 Branch (noon). metformin 2019-09 Yes [id number] 750mg Take 1 [facility] ER 750 mg 0-05 tablet by ity o f 24 hr 00:00: mouth 2 [place] tablet 00 (two) Medical times [facility] daily with meals. DOSE INCREASE. metoprolol 2019-09 Yes [id number] 25mg Take 1 [facility] succinate 0-05 tablet by ity o f XL 25 mg 24 00:00: mouth [place] hr tablet 00 every day Medic al at 1200 Branch (noon). metformin 2019-09 Yes [id number] 750mg Take 1 [facility] ER 750 mg 0-05 tablet by ity o f 24 hr 00:00: mouth 2 [place] tablet 00 (two) Medical times [facility] daily with meals. DOSE INCREASE. metoprolol 2019-09 Yes [id number] 25mg Take 1 [facility] succinate 0-05 tablet by ity o f XL 25 mg 24 00:00: mouth [place] hr tablet 00 every day Medic al at 1200 Branch (noon). metformin 2019- Yes [id number] 750mg Take 1 [facility] ER 750 mg 0-05 tablet by ity o f 24 hr 00:00: mouth 2 [place] tablet 00 (two) Medical times Branch daily with meals. DOSE INCREASE. metoprolol 2019- Yes [id number] 25mg Take 1 [facility] succinate 0-05 tablet by ity o f XL 25 mg 24 00:00: mouth [place] hr tablet 00 every day Medic al at 1200 Branch (noon). metformin 2019- Yes [id number] 750mg Take 1 [facility] ER 750 mg 0-05 tablet by ity o f 24 hr 00:00: mouth 2 [place] tablet 00 (two) Medical times Branch daily with meals. DOSE INCREASE. metoprolol 2019-09 Yes [id number] 25mg Take 1 [facility] succinate 0-05 tablet by ity o f XL 25 mg 24 00:00: mouth [place] hr tablet 00 every day Medic al at 1200 Branch (noon). metformin 2019- Yes [id number] 750mg Take 1 [facility] ER 750 mg 0-05 tablet by ity o f 24 hr 00:00: mouth 2 [place] tablet 00 (two) Medical times Branch daily with meals. DOSE INCREASE. metoprolol 2019- Yes [id number] 25mg Take 1 [facility] succinate 0-05 tablet by ity o f XL 25 mg 24 00:00: mouth [place] hr tablet 00 every day Medic al at 1200 Branch (noon). metformin 2019- Yes [id number] 750mg Take 1 [facility] ER 750 mg 0-05 tablet by ity o f 24 hr 00:00: mouth 2 [place] tablet 00 (two) Medical times Branch daily with meals. DOSE INCREASE. metoprolol 2019- Yes [id number] 25mg Take 1 [facility] succinate 0-05 tablet by ity o f XL 25 mg 24 00:00: mouth [place] hr tablet 00 every day Medic al at 1200 Branch (noon). metformin 2019- Yes [id number] 750mg Take 1 [facility] ER 750 mg 0-05 tablet by ity o f 24 hr 00:00: mouth 2 [place] tablet 00 (two) Medical times Branch daily with meals. DOSE INCREASE. metformin 2019- Yes [id number] 750mg Take 1 [facility] ER 750 mg 0-05 tablet by ity o f 24 hr 00:00: mouth 2 [place] tablet 00 (two) Medical times Branch daily with meals. DOSE INCREASE. metformin 2019- Yes [id number] 750mg Take 1 [facility] ER 750 mg 0-05 tablet by ity o f 24 hr 00:00: mouth 2 [place] tablet 00 (two) Medical times Branch daily with meals. DOSE INCREASE. metformin 2019- Yes [id number] 750mg Take 1 [facility] ER 750 mg 0-05 tablet by ity o f 24 hr 00:00: mouth 2 [place] tablet 00 (two) Medical times Branch daily with meals. DOSE INCREASE. metformin 2019- Yes [id number] 750mg Take 1 [facility] ER 750 mg 0-05 tablet by ity o f 24 hr 00:00: mouth 2 [place] tablet 00 (two) Medical times Branch daily with meals. DOSE INCREASE. metformin 2019- Yes [id number] 750mg Take 1 [facility] ER 750 mg 0-05 tablet by ity o f 24 hr 00:00: mouth 2 [place] tablet 00 (two) Medical times Branch daily with meals. DOSE INCREASE. metformin 2019-09 Yes [id number] 750mg Take 1 [facility] ER 750 mg 0-05 tablet by ity o f 24 hr 00:00: mouth 2 [place] tablet 00 (two) Medical times Branch daily with meals. DOSE INCREASE. metformin 2019-09 Yes [id number] 750mg Take 1 [facility] ER 750 mg 0-05 tablet by ity o f 24 hr 00:00: mouth 2 [place] tablet 00 (two) Medical times Branch daily with meals. DOSE INCREASE. metformin 2019- Yes [id number] 750mg Take 1 [facility] ER 750 mg 0-05 tablet by ity o f 24 hr 00:00: mouth 2 [place] tablet 00 (two) Medical times Branch daily with meals. DOSE INCREASE. metformin 2019- Yes [id number] 750mg Take 1 [facility] ER 750 mg 0-05 tablet by ity o f 24 hr 00:00: mouth 2 [place] tablet 00 (two) Medical times Branch daily with meals. DOSE INCREASE. metformin 2019- Yes [id number] 750mg Take 1 [facility] ER 750 mg 0-05 tablet by ity o f 24 hr 00:00: mouth 2 [place] tablet 00 (two) Medical times Branch daily with meals. DOSE INCREASE. metformin 2019-09 2020- No [id number] 750mg Take 1 [facility] ER 750 mg 0-05 11-28 tablet by ity of 24 hr 00:00: 00:00 mouth 2 [place] tablet 00 :00 (two) Medical times Branch daily with meals. DOSE INCREASE. metoprolol 2019-09 2020- No [id number] 25mg Take 1 [facility] succinate 0-05 10-23 tablet by ity of XL 25 mg 24 00:00: 00:00 mouth [place] hr tablet 00 :00 every day Medic al at 1200 Branch (noon). metoprolol 2019-09 2020- No [id number] 25mg Take 1 [facility] succinate 0-05 10-23 tablet by ity of XL 25 mg 24 00:00: 00:00 mouth [place] tablet 00 :00 every day Medic al at 1200 Branch (noon). alcaftadine 2020-[address] in [facility] (LASTACAFT) 9 each eye. ity of 0.25 % Drop 19:20: [place] [address] Medical Branch CYCLOSPORIN 2020-[address] in [facility] E (RESTASIS 06-09 each eye. ity of OPHTHALMIC) 19:20: [place] [address] Medical Branch ASCORBATE 2020-0 Yes Take by [facility] CALCIUM 06-09 mouth. ity of (VITAMIN C 19:20: [place] ORAL) 49 Medical Branch DOCOSAHEXAN 2020-0 Yes Take by [facility] 06-09 mouth. ity of ACID/EPA 19:20: [place] (FISH OIL 49 Medical ORAL) Branch vitamin E 2020-0 Yes 1000U Take 1,000 [facility] 1,000 unit 06-09 Units by ity o f capsule 19:20: mouth [place] 49 daily. Medical Branch Magnesium 2020-0 Yes Take by [facility] 250 mg Tab 06-09 mouth. ity of 19:20: [place] [address] Medical Branch vitamin B-6 2020-0 Yes 100mg Take 100 [facility] (VITAMIN 9-23 mg by ity of B-6) 100 mg 19:20: mouth [place] tablet 49 daily. Medical Branch CALCIUM 2020-0 Yes Take by [facility] CARBONATE/V 06-09 mouth. ity of ITAMIN D3 19:20: [place] (VITAMIN 49 Medical D-3 ORAL) Branch alcaftadine 2020-[address] in [facility] (LASTACAFT) 9 each eye. ity of 0.25 % Drop 19:20: [place] [address] Medical Branch CYCLOSPORIN 2020-[address] in [facility] E (RESTASIS 06-09 each eye. ity of OPHTHALMIC) 19:20: [place] [address] Medical Branch ASCORBATE 2020-0 Yes Take by [facility] CALCIUM 06-09 mouth. ity of (VITAMIN C 19:20: [place] ORAL) 49 Medical Branch DOCOSAHEXAN 2020-0 Yes Take by [facility] 06-09 mouth. ity of ACID/EPA 19:20: [place] (FISH OIL 49 Medical ORAL) Branch vitamin E 2020-0 Yes 1000U Take 1,000 [facility] 1,000 unit - Units by ity o f capsule 19:20: mouth [place] 49 daily. Medical Branch Magnesium 2020-0 Yes Take by [facility] 250 mg Tab 06-09 mouth. ity of 19:20: [place] [address] Medical Branch vitamin B-6 2020-0 Yes 100mg Take 100 [facility] (VITAMIN 9-23 mg by ity of B-6) 100 mg 19:20: mouth [place] tablet 49 daily. Medical Branch CALCIUM 2020-0 Yes Take by Un[facility] CARBONATE/V 06-09 mouth. ity of ITAMIN D3 19:20: [place] (VITAMIN 49 Medical D-3 ORAL) Branch alcaftadine 2020-[address] in [facility] (LASTACAFT) 06-09 each eye. ity of 0.25 % Drop 19:20: [place] [address] Medical Branch CYCLOSPORIN 2020-[address] in [facility] E (RESTASIS 06-09 each eye. ity of OPHTHALMIC) 19:20: [place] [address] Medical Branch ASCORBATE 2020-0 Yes Take by [facility] CALCIUM 06-09 mouth. ity of (VITAMIN C 19:20: [place] ORAL) 49 Medical Branch DOCOSAHEXAN 2020-0 Yes Take by [facility] [facility] 06-09 mouth. ity of ACID/EPA 19:20: [place] (FISH OIL 49 Medical ORAL) Branch vitamin E 2020-0 Yes 1000U Take 1,000 [facility] 1,000 unit - Units by ity o f capsule 19:20: mouth [place] 49 daily. Medical Branch Magnesium 2020-0 Yes Take by [facility] 250 mg Tab 06-09 mouth. ity of 19:20: [place] [address] Medical Branch vitamin B-6 2020-0 Yes 100mg Take 100 [facility] (VITAMIN 9-23 mg by ity of B-6) 100 mg 19:20: mouth [place] tablet 49 daily. Medical Branch CALCIUM 2020-0 Yes Take by Un[facility] CARBONATE/V 06-09 mouth. ity of ITAMIN D3 19:20: [place] (VITAMIN 49 Medical D-3 ORAL) Branch alcaftadine 2020-[address] in [facility] (LASTACAFT) 9-23 each eye. ity of 0.25 % Drop 19:20: [place] [address] Medical Branch CYCLOSPORIN 2020-[address] in [facility] E (RESTASIS 9- each eye. ity of OPHTHALMIC) 19:20: [place] [address] Medical Branch ASCORBATE 2020-0 Yes Take by [facility] CALCIUM 9- mouth. ity of (VITAMIN C 19:20: [place] ORAL) 49 Medical Branch DOCOSAHEXAN 2020-0 Yes Take by [facility] [facility] 06-09 mouth. ity of ACID/EPA 19:20: [place] (FISH OIL 49 Medical ORAL) Branch vitamin E 2020-0 Yes 1000U Take 1,000 [facility] 1,000 unit 9-23 Units by ity o f capsule 19:20: mouth [place] 49 daily. Medical Branch Magnesium 2020-0 Yes Take by [facility] 250 mg Tab 06-09 mouth. ity of 19:20: [place] [address] Medical Branch vitamin B-6 2020-0 Yes 100mg Take 100 [facility] (VITAMIN 9-23 mg by ity of B-6) 100 mg 19:20: mouth [place] tablet 49 daily. Medical Branch CALCIUM 2020-0 Yes Take by Un[facility] CARBONATE/V 06-09 mouth. ity of ITAMIN D3 19:20: [place] (VITAMIN 49 Medical D-3 ORAL) Branch alcaftadine 2020-[address] in [facility] (LASTACAFT) 9-23 each eye. ity of 0.25 % Drop 19:20: [place] [address] Medical Branch CYCLOSPORIN 2020-[address] in [facility] E (RESTASIS 9 each eye. ity of OPHTHALMIC) 19:20: [place] [address] Medical Branch ASCORBATE 2020-0 Yes Take by [facility] CALCIUM - mouth. ity of (VITAMIN C 19:20: [place] ORAL) 49 Medical Branch DOCOSAHEXAN 2020-0 Yes Take by [facility] 06-09 mouth. ity of ACID/EPA 19:20: [place] (FISH OIL 49 Medical ORAL) Branch vitamin E 2020-0 Yes 1000U Take 1,000 [facility] 1,000 unit 9-23 Units by ity o f capsule 19:20: mouth [place] 49 daily. Medical Branch Magnesium 2020-0 Yes Take by [facility] 250 mg Tab 06-09 mouth. ity of 19:20: [place] [address] Medical Branch vitamin B-6 2020-0 Yes 100mg Take 100 [facility] (VITAMIN 9-23 mg by ity of B-6) 100 mg 19:20: mouth [place] tablet 49 daily. Medical Branch CALCIUM 2020-0 Yes Take by Un[facility] CARBONATE/V 06-09 mouth. ity of ITAMIN D3 19:20: [place] (VITAMIN 49 Medical D-3 ORAL) Branch alcaftadine 2020-[address] in [facility] (LASTACAFT) 06-09 each eye. ity of 0.25 % Drop 19:20: [place] [address] Medical Branch CYCLOSPORIN 2020-[address] in [facility] E (RESTASIS 06-09 each eye. ity of OPHTHALMIC) 19:20: [place] [address] Medical Branch ASCORBATE 2020-0 Yes Take by [facility] CALCIUM 06-09 mouth. ity of (VITAMIN C 19:20: [place] ORAL) Medical Branch DOCOSAHEXAN 2020-0 Yes Take by [facility] 06-09 mouth. ity of ACID/EPA 19:20: [place] (FISH OIL 49 Medical ORAL) Branch vitamin E 2020-0 Yes 1000U Take 1,000 [facility] 1,000 unit 06-09 Units by ity o f capsule 19:20: mouth [place] 49 daily. Medical Branch Magnesium 2020-0 Yes Take by [facility] 250 mg Tab 06-09 mouth. ity of 19:20: [place] [address] Medical Branch vitamin B-6 2020-0 Yes 100mg Take 100 [facility] (VITAMIN 9-23 mg by ity of B-6) 100 mg 19:20: mouth [place] tablet 49 daily. Medical Branch CALCIUM 2020-0 Yes Take by Un[facility] CARBONATE/V 06-09 mouth. ity of ITAMIN D3 19:20: [place] (VITAMIN 49 Medical D-3 ORAL) Branch alcaftadine 2020-[address] in [facility] (LASTACAFT) 06-09 each eye. ity of 0.25 % Drop 19:20: [place] [address] Medical Branch CALCIUM 2020-0 Yes Take by Un[facility] CARBONATE/V 06-09 mouth. ity of ITAMIN D3 19:20: [place] (VITAMIN 49 Medical D-3 ORAL) Branch alcaftadine 2020-[address] in [facility] (LASTACAFT) 06-09 each eye. ity of 0.25 % Drop 19:20: [place] 49 Medical Branch CALCIUM 2020-0 Yes Take by [facility] CARBONATE/V 06-09 mouth. ity of ITAMIN D3 19:20: [place] (VITAMIN 49 Medical D-3 ORAL) Branch alcaftadine 2020-[address] in [facility] (LASTACAFT) 06-09 each eye. ity of 0.25 % Drop 19:20: [place] 49 Medical Branch CALCIUM 2020-0 Yes Take by [facility] CARBONATE/V 06-09 mouth. ity of ITAMIN D3 19:20: [place] (VITAMIN 49 Medical D-3 ORAL) Branch alcaftadine 2020-[address] in [facility] (LASTACAFT) 06-09 each eye. ity of 0.25 % Drop 19:20: [place] 49 Medical Branch CALCIUM 2020-0 Yes Take by [facility] CARBONATE/V 06-09 mouth. ity of ITAMIN D3 19:20: [place] (VITAMIN 49 Medical D-3 ORAL) Branch alcaftadine 2020-[address] in [facility] (LASTACAFT) 9 each eye. ity of 0.25 % Drop 19:20: [place] 49 Medical Branch CALCIUM 2020-0 Yes Take by [facility] CARBONATE/V 06-09 mouth. ity of ITAMIN D3 19:20: [place] (VITAMIN 49 Medical D-3 ORAL) Branch alcaftadine 2020-[address] in [facility] (LASTACAFT) 06-09 each eye. ity of 0.25 % Drop 19:20: [place] 49 Medical Branch CALCIUM 2020-0 Yes Take by [facility] CARBONATE/V 06-09 mouth. ity of ITAMIN D3 19:20: [place] (VITAMIN 49 Medical D-3 ORAL) Branch alcaftadine 2020-[address] in [facility] (LASTACAFT) 06-09 each eye. ity of 0.25 % Drop 19:20: [place] 49 Medical Branch CALCIUM 2020-0 Yes Take by [facility] CARBONATE/V 06-09 mouth. ity of ITAMIN D3 19:20: [place] (VITAMIN 49 Medical D-3 ORAL) Branch alcaftadine 2020-[address] in [facility] (LASTACAFT) 06-09 each eye. ity of 0.25 % Drop 19:20: [place] 49 Medical Branch CALCIUM 2020-0 Yes Take by [facility] CARBONATE/V 06-09 mouth. ity of ITAMIN D3 19:20: [place] (VITAMIN 49 Medical D-3 ORAL) Branch metoprolol 2020-0 Yes [id number] 25mg Take 1 [facility] succinate 9-23 tablet by ity o f XL 25 mg 24 00:00: mouth at [place] hr tablet 00 bedtime. Medica l Branch metoprolol 2020-0 Yes [id number] 25mg Take 1 [facility] succinate 9-23 tablet by ity o f XL 25 mg 24 00:00: mouth at [place] hr tablet 00 bedtime. Medica l Branch metoprolol 2020-0 Yes [id number] 25mg Take 1 [facility] succinate 9-23 tablet by ity o f XL 25 mg 24 00:00: mouth at [place] hr tablet 00 bedtime. Medica l Branch metoprolol 2020-0 Yes [id number] 25mg Take 1 [facility] succinate 9-23 tablet by ity o f XL 25 mg 24 00:00: mouth at [place] hr tablet 00 bedtime. Medica l Branch metoprolol 2020-0 Yes [id number] 25mg Take 1 [facility] succinate 9-23 tablet by ity o f XL 25 mg 24 00:00: mouth at [place] hr tablet 00 bedtime. Medica l Branch metoprolol 2020-0 Yes [id number] 25mg Take 1 [facility] succinate 9-23 tablet by ity o f XL 25 mg 24 00:00: mouth at [place] hr tablet 00 bedtime. Medica l Branch metoprolol 2020-0 Yes [id number] 25mg Take 1 [facility] succinate 9-23 tablet by ity o f XL 25 mg 24 00:00: mouth at [place] hr tablet 00 bedtime. Medica l Branch metoprolol 2020-0 2020- No [id number] 25mg Take 1 [facility] succinate 9-23 10-05 tablet by ity of XL 25 mg 24 00:00: 00:00 mouth at [place] hr tablet 00 :00 bedtime. Medica l Branch metoprolol 2020-0 2020- No [id number] 25mg Take 1 [facility] succinate 9-23 10-05 tablet by ity of XL 25 mg 24 00:00: 00:00 mouth at [place] hr tablet 00 :00 bedtime. Medica l Branch LOSARTAN 25 2019-0 Yes [id number] TAKE 1 [facility] mg tablet 9-22 TABLET BY ity o f 00:00: MOUTH [place] 00 EVERY DAY Medical Branch LOSARTAN 25 2020-0 2020- No [id number] TAKE 1 [facility] mg tablet 06-08 TABLET BY ity of 00:00: 00:00 MOUTH [place] 00 :00 EVERY DAY Medical Branch losartan 25 2020-0 Yes [id number] 25mg Take 1 [facility] mg tablet 9-21 tablet by ity o f 00:00: mouth [place] 00 daily. Medical Branch traZODone 2020-0 Yes [id number] 100mg Take 1 [facility] 100 mg 9-21 tablet by ity of tablet 00:00: mouth at [place] 00 bedtime as Medical needed for Branch Insomnia. losartan 25 2020-0 Yes [id number] 25mg Take 1 [facility] mg tablet 9-21 tablet by ity o f 00:00: mouth [place] 00 daily. Medical Branch traZODone 2020-0 Yes [id number] 100mg Take 1 [facility] 100 mg 9-21 tablet by ity of tablet 00:00: mouth at [place] 00 bedtime as Medical needed for Branch Insomnia. traZODone 2020-0 Yes [id number] 100mg Take 1 [facility] 100 mg 9-21 tablet by ity of tablet 00:00: mouth at [place] 00 bedtime as Medical needed for Branch Insomnia. traZODone 2020-0 Yes [id number] 100mg Take 1 [facility] 100 mg 9-21 tablet by ity of tablet 00:00: mouth at [place] 00 bedtime as Medical needed for Branch Insomnia. traZODone 2020-0 Yes [id number] 100mg Take 1 [facility] 100 mg 9-21 tablet by ity of tablet 00:00: mouth at [place] 00 bedtime as Medical needed for Branch Insomnia. traZODone 2020-0 Yes [id number] 100mg Take 1 [facility] 100 mg 9-21 tablet by ity of tablet 00:00: mouth at [place] 00 bedtime as Medical needed for Branch Insomnia. traZODone 2020-0 Yes [id number] 100mg Take 1 [facility] 100 mg 9-21 tablet by ity of tablet 00:00: mouth at [place] 00 bedtime as Medical needed for Branch Insomnia. traZODone 2020-0 Yes [id number] 100mg Take 1 [facility] 100 mg 9-21 tablet by ity of tablet 00:00: mouth at [place] 00 bedtime as Medical needed for Branch Insomnia. traZODone 2020-0 Yes [id number] 100mg Take 1 [facility] 100 mg 9-21 tablet by ity of tablet 00:00: mouth at [place] 00 bedtime as Medical needed for Branch Insomnia. traZODone 2020-0 Yes [id number] 100mg Take 1 [facility] 100 mg 9-21 tablet by ity of tablet 00:00: mouth at [place] 00 bedtime as Medical needed for Branch Insomnia. traZODone 2020-0 Yes [id number] 100mg Take 1 [facility] 100 mg 9-21 tablet by ity of tablet 00:00: mouth at [place] 00 bedtime as Medical needed for Branch Insomnia. traZODone 2020-0 Yes [id number] 100mg Take 1 [facility] 100 mg 9-21 tablet by ity of tablet 00:00: mouth at [place] 00 bedtime as Medical needed for Branch Insomnia. traZODone 2020-0 Yes [id number] 100mg Take 1 [facility] 100 mg 9-21 tablet by ity of tablet 00:00: mouth at [place] [address] bedtime as Medical needed for Branch Insomnia. traZODone 2020-0 Yes [id number] 100mg Take 1 [facility] 100 mg 9-21 tablet by ity of tablet 00:00: mouth at [place] [address] bedtime as Medical needed for Branch Insomnia. traZODone 2020-0 Yes [id number] 100mg Take 1 [facility] 100 mg 9-21 tablet by ity of tablet 00:00: mouth at [place] [address] bedtime as Medical needed for Branch Insomnia. traZODone 2020-0 Yes [id number] 100mg Take 1 [facility] 100 mg 9-21 tablet by ity of tablet 00:00: mouth at [place] [address] bedtime as Medical needed for Branch Insomnia. traZODone 2020-0 Yes [id number] 100mg Take 1 [facility] 100 mg 9-21 tablet by ity of tablet 00:00: mouth at [place] 00 bedtime as Medical needed for Branch Insomnia. traZODone 2020-0 Yes [id number] 100mg Take 1 [facility] 100 mg 9-21 tablet by ity of tablet 00:00: mouth at [place] 00 bedtime as Medical needed for Branch Insomnia. traZODone 2020-0 Yes [id number] 100mg Take 1 [facility] 100 mg 9-21 tablet by ity of tablet 00:00: mouth at [place] [address] bedtime as Medical needed for Branch Insomnia. traZODone 2020-0 Yes [id number] 100mg Take 1 [facility] 100 mg 9-21 tablet by ity of tablet 00:00: mouth at [place] [address] bedtime as Medical needed for Branch Insomnia. traZODone 2020-0 Yes [id number] 100mg Take 1 [facility] 100 mg 9-21 tablet by ity of tablet 00:00: mouth at [place] 00 bedtime as Medical needed for Branch Insomnia. traZODone 2020-0 Yes [id number] 100mg Take 1 [facility] 100 mg 9-21 tablet by ity of tablet 00:00: mouth at [place] 00 bedtime as Medical needed for Branch Insomnia. traZODone 2020-0 Yes [id number] 100mg Take 1 [facility] 100 mg 9-21 tablet by ity of tablet 00:00: mouth at [place] 00 bedtime as Medical needed for Branch Insomnia. traZODone 2020-0 Yes [id number] 100mg Take 1 [facility] 100 mg 9-21 tablet by ity of tablet 00:00: mouth at [place] [address] bedtime as Medical needed for Branch Insomnia. traZODone 2020-0 Yes [id number] 100mg Take 1 [facility] 100 mg 9-21 tablet by ity of tablet 00:00: mouth at [place] [address] bedtime as Medical needed for Branch Insomnia. traZODone 2020-0 Yes [id number] 100mg Take 1 [facility] 100 mg 9-21 tablet by ity of tablet 00:00: mouth at [place] [address] bedtime as Medical needed for Branch Insomnia. traZODone 2020-0 Yes [id number] 100mg Take 1 [facility] 100 mg 9-21 tablet by ity of tablet 00:00: mouth at [place] [address] bedtime as Medical needed for Branch Insomnia. traZODone 2020-0 Yes [id number] 100mg Take 1 [facility] 100 mg 9-21 tablet by ity of tablet 00:00: mouth at [place] 00 bedtime as Medical needed for Branch Insomnia. traZODone 2020-0 Yes [id number] 100mg Take 1 [facility] 100 mg 9-21 tablet by ity of tablet 00:00: mouth at [place] 00 bedtime as Medical needed for Branch Insomnia. traZODone 2020-0 Yes [id number] 100mg Take 1 [facility] 100 mg 9-21 tablet by ity of tablet 00:00: mouth at [place] [address] bedtime as Medical needed for Branch Insomnia. traZODone 2020-0 Yes [id number] 100mg Take 1 [facility] 100 mg 9-21 tablet by ity of tablet 00:00: mouth at [place] 00 bedtime as Medical needed for Branch Insomnia. traZODone 2020-0 Yes [id number] 100mg Take 1 [facility] 100 mg 9-21 tablet by ity of tablet 00:00: mouth at [place] 00 bedtime as Medical needed for Branch Insomnia. traZODone 2020-0 Yes [id number] 100mg Take 1 [facility] 100 mg 9-21 tablet by ity of tablet 00:00: mouth at [place] 00 bedtime as Medical needed for Branch Insomnia. traZODone 2020-0 Yes [id number] 100mg Take 1 [facility] 100 mg 9-21 tablet by ity of tablet 00:00: mouth at [place] 00 bedtime as Medical needed for Branch Insomnia. traZODone 2020-0 Yes [id number] 100mg Take 1 [facility] 100 mg 9-21 tablet by ity of tablet 00:00: mouth at [place] 00 bedtime as Medical needed for Branch Insomnia. traZODone 2020-0 Yes [id number] 100mg Take 1 [facility] 100 mg 9-21 tablet by ity of tablet 00:00: mouth at [place] 00 bedtime as Medical needed for Branch Insomnia. traZODone 2020-0 Yes [id number] 100mg Take 1 [facility] 100 mg 9-21 tablet by ity of tablet 00:00: mouth at [place] [address] bedtime as Medical needed for Branch Insomnia. traZODone 2020-0 Yes [id number] 100mg Take 1 [facility] 100 mg 9-21 tablet by ity of tablet 00:00: mouth at [place] [address] bedtime as Medical needed for Branch Insomnia. traZODone 2020-0 Yes [id number] 100mg Take 1 [facility] 100 mg 9-21 tablet by [facility] tablet 00:00: mouth at [place] 00 bedtime as Medical needed for Branch Insomnia. traZODone 2020-0 Yes [id number] 100mg Take 1 [facility] 100 mg 9-21 tablet by [facility] tablet 00:00: mouth at [place] 00 bedtime as Medical needed for Branch Insomnia. traZODone 2020-0 Yes [id number] 100mg Take 1 [facility] 100 mg 9-21 tablet by [facility] tablet 00:00: mouth at [place] 00 bedtime as Medical needed for Branch Insomnia. traZODone 2020-0 Yes [id number] 100mg Take 1 [facility] 100 mg 9-21 tablet by [facility] tablet 00:00: mouth at [place] 00 bedtime as Medical needed for Branch Insomnia. traZODone 2020-0 Yes [id number] 100mg Take 1 [facility] 100 mg 9-21 tablet by [facility] tablet 00:00: mouth at [place] 00 bedtime as Medical needed for Branch Insomnia. traZODone 2020-0 Yes [id number] 100mg Take 1 [facility] 100 mg 9-21 tablet by [facility] tablet 00:00: mouth at [place] 00 bedtime as Medical needed for Branch Insomnia. traZODone 2020-0 Yes [id number] 100mg Take 1 [facility] 100 mg 9-21 tablet by [facility] tablet 00:00: mouth at [place] 00 bedtime as Medical needed for Branch Insomnia. traZODone 2020-0 Yes [id number] 100mg Take 1 [facility] 100 mg 9-21 tablet by [facility] tablet 00:00: mouth at [place] 00 bedtime as Medical needed for Branch Insomnia. traZODone 2020-0 Yes [id number] 100mg Take 1 [facility] 100 mg 9-21 tablet by [facility] tablet 00:00: mouth at [place] 00 bedtime as Medical needed for Branch Insomnia. traZODone 2020-0 Yes [id number] 100mg Take 1 [facility] 100 mg 9-21 tablet by [facility] tablet 00:00: mouth at [place] 00 bedtime as Medical needed for Branch Insomnia. traZODone 2020-0 Yes [id number] 100mg Take 1 [facility] 100 mg 9-21 tablet by [facility] of tablet 00:00: mouth at [place] [address] bedtime as Medical needed for Branch Insomnia. traZODone 2020-0 Yes [id number] 100mg Take 1 [facility] 100 mg 9-21 tablet by [facility] tablet 00:00: mouth at [place] 00 bedtime as Medical needed for Branch Insomnia. traZODone 2020-0 Yes [id number] 100mg Take 1 [facility] 100 mg 9-21 tablet by [facility] tablet 00:00: mouth at [place] 00 bedtime as Medical needed for Branch Insomnia. traZODone 2020-0 Yes [id number] 100mg Take 1 [facility] 100 mg 9-21 tablet by [facility] tablet 00:00: mouth at [place] 00 bedtime as Medical needed for Branch Insomnia. traZODone 2020-0 Yes [id number] 100mg Take 1 [facility] 100 mg 9-21 tablet by [facility] tablet 00:00: mouth at [place] 00 bedtime as Medical needed for Branch Insomnia. traZODone 2020-0 Yes [id number] 100mg Take 1 [facility] 100 mg 9-21 tablet by [facility] tablet 00:00: mouth at [place] 00 bedtime as Medical needed for Branch Insomnia. traZODone 2020-0 Yes [id number] 100mg Take 1 [facility] 100 mg 9-21 tablet by [facility] tablet 00:00: mouth at [place] 00 bedtime as Medical needed for Branch Insomnia. traZODone 2020-0 Yes [id number] 100mg Take 1 [facility] 100 mg 9-21 tablet by [facility] tablet 00:00: mouth at [place] 00 bedtime as Medical needed for Branch Insomnia. traZODone 2020-0 Yes [id number] 100mg Take 1 [facility] 100 mg 9-21 tablet by [facility] tablet 00:00: mouth at [place] 00 bedtime as Medical needed for Branch Insomnia. traZODone 2020-0 Yes [id number] 100mg Take 1 [facility] 100 mg 9-21 tablet by [facility] tablet 00:00: mouth at [place] 00 bedtime as Medical needed for Branch Insomnia. traZODone 2020-0 Yes [id number] 100mg Take 1 [facility] 100 mg 9-21 tablet by [facility] tablet 00:00: mouth at [place] 00 bedtime as Medical needed for Branch Insomnia. traZODone 2020-0 Yes [id number] 100mg Take 1 [facility] 100 mg 9-21 tablet by [facility] of tablet 00:00: mouth at [place] 00 bedtime as Medical needed for Branch Insomnia. traZODone 2020-0 Yes [id number] 100mg Take 1 [facility] 100 mg 9-21 tablet by [facility] of tablet 00:00: mouth at [place] 00 bedtime as Medical needed for Branch Insomnia. traZODone 2020-0 Yes [id number] 100mg Take 1 [facility] 100 mg 9-21 tablet by [facility] tablet 00:00: mouth at [place] 00 bedtime as Medical needed for Branch Insomnia. traZODone 2020-0 Yes [id number] 100mg Take 1 [facility] 100 mg 9-21 tablet by [facility] tablet 00:00: mouth at [place] 00 bedtime as Medical needed for Branch Insomnia. traZODone 2020-0 2021- No [id number] 100mg Take 1 [facility] 100 mg 9-21 03-18 tablet by [facility] tablet 00:00: 00:00 mouth at [place] 00 :00 bedtime as Medical needed for Branch Insomnia. losartan 25 2019- 2020- No [id number] 25mg Take 1 [facility] mg tablet 06-07- tablet by [facility] of 00:00: 00:00 mouth [place] 00 :00 daily. Medical Branch NaCl 0.9% 2019- No 1000mL at 999 [facility] vers (NS) bolus 06-03- mL/hr, [facility] infusion 20:30: 22:00 1,000 mL, Edward as 1,000 mL 00 :00 IV Medical Infusion, Branch ONCE, 1 dose, Sarah 06/03/20 at 1530, BASIL RAMELTEON 8 2019- Yes [id number] 8mg TAKE 1 [facility] mg tablet 9-16 TABLET BY ity o f 00:00: MOUTH AT [place] 00 BEDTIME Medical NEEDED FOR Branch INSOMNIA. STOP TRAZODONE. RAMELTEON 8 Yes [id number] 8mg TAKE 1 [facility] mg tablet 9-16 TABLET BY ity o f 00:00: MOUTH AT [place] 00 BEDTIME Medical NEEDED FOR Branch INSOMNIA. STOP TRAZODONE. RAMELTEON 8 Yes [id number] 8mg TAKE 1 [facility] mg tablet 9-16 TABLET BY ity o f 00:00: MOUTH AT [place] 00 BEDTIME Medical NEEDED FOR Branch INSOMNIA. STOP TRAZODONE. RAMELTEON 8 2020- No [id number] 8mg TAKE 1 [facility] mg tablet -02 06- TABLET BY [facility]y of 00:00: 00:00 MOUTH AT [place] 00 :00 BEDTIME Medical NEEDED FOR Branch INSOMNIA. STOP TRAZODONE. RAMELTEON 8 2019- No [id number] 8mg TAKE 1 [facility] mg tablet -02 06- TABLET BY [facility] of 00:00: 00:00 MOUTH AT [place] 00 :00 BEDTIME Medical NEEDED FOR Branch INSOMNIA. STOP TRAZODONE. oxyCODONE-a 2019- 2020- No 1{tbl} Take 1 [facility] cetaminophe 9-10 09-10 tablet by it y of n 7.5-325 22:39: 00:00 mouth [place] mg per 20 :00 (two) Medical tablet times Branch daily as needed for Pain. TRIAMTERENE 2019- Yes [id number] TAKE 2 [facility] -HYDROCHLOR 9-08 TABLETS BY it y of OTHIAZID 00:00: MOUTH [place] 37.5-25 mg 00 EVERY DAY Medi kacey tablet Branch TRIAMTERENE 2020-0 Yes [id number] TAKE 2 [facility] -HYDROCHLOR 9-08 TABLETS BY it y of OTHIAZID 00:00: MOUTH [place] 37.5-25 mg 00 EVERY DAY Medi kacey tablet Branch TRIAMTERENE 2020-0 Yes [id number] TAKE 2 [facility] -HYDROCHLOR 9-08 TABLETS BY it y of OTHIAZID 00:00: MOUTH [place] 37.5-25 mg 00 EVERY DAY Medi kacey tablet Branch TRIAMTERENE 2020-0 Yes [id number] TAKE 2 [facility] -HYDROCHLOR 9-08 TABLETS BY it y of OTHIAZID 00:00: MOUTH [place] 37.5-25 mg 00 EVERY DAY Medi kacey tablet Branch TRIAMTERENE 2020-0 Yes [id number] TAKE 2 [facility] -HYDROCHLOR 9-08 TABLETS BY it y of OTHIAZID 00:00: MOUTH [place] 37.5-25 mg 00 EVERY DAY Medi kacey tablet Branch TRIAMTERENE 2020-0 Yes [id number] TAKE 2 [facility] -HYDROCHLOR 9-08 TABLETS BY it y of OTHIAZID 00:00: MOUTH [place] 37.5-25 mg 00 EVERY DAY Medi kacey tablet Branch TRIAMTERENE 2020-0 Yes [id number] TAKE 2 [facility] -HYDROCHLOR 9-08 TABLETS BY it y of OTHIAZID 00:00: MOUTH [place] 37.5-25 mg 00 EVERY DAY Medi kacey tablet Branch TRIAMTERENE 2020-0 Yes [id number] TAKE 2 [facility] -HYDROCHLOR 9-08 TABLETS BY it y of OTHIAZID 00:00: MOUTH [place] 37.5-25 mg 00 EVERY DAY Medi kacey tablet Branch TRIAMTERENE 2020-0 Yes [id number] TAKE 2 [facility] -HYDROCHLOR 9-08 TABLETS BY it y of OTHIAZID 00:00: MOUTH [place] 37.5-25 mg 00 EVERY DAY Medi kacey tablet Branch TRIAMTERENE 2020-0 Yes [id number] TAKE 2 [facility] -HYDROCHLOR 9-08 TABLETS BY it y of OTHIAZID 00:00: MOUTH [place] 37.5-25 mg 00 EVERY DAY Medi kacey tablet Branch TRIAMTERENE 2020-0 Yes [id number] TAKE 2 [facility] -HYDROCHLOR 9-08 TABLETS BY it y of OTHIAZID 00:00: MOUTH [place] 37.5-25 mg 00 EVERY DAY Medi kacey tablet Branch TRIAMTERENE 2020-0 Yes [id number] TAKE 2 [facility] -HYDROCHLOR 9-08 TABLETS BY it y of OTHIAZID 00:00: MOUTH [place] 37.5-25 mg 00 EVERY DAY Medi kacey tablet Branch TRIAMTERENE 2020-0 Yes [id number] TAKE 2 [facility] -HYDROCHLOR 9-08 TABLETS BY it y of OTHIAZID 00:00: MOUTH [place] 37.5-25 mg 00 EVERY DAY Medi kacey tablet Branch TRIAMTERENE 2020-0 Yes [id number] TAKE 2 [facility] -HYDROCHLOR 9-08 TABLETS BY it y of OTHIAZID 00:00: MOUTH [place] 37.5-25 mg 00 EVERY DAY Medi kacey tablet Branch TRIAMTERENE 2020-0 Yes [id number] TAKE 2 [facility] -HYDROCHLOR 9-08 TABLETS BY it y of OTHIAZID 00:00: MOUTH [place] 37.5-25 mg 00 EVERY DAY Medi kacey tablet Branch TRIAMTERENE 2020-0 Yes [id number] TAKE 2 [facility] -HYDROCHLOR 9-08 TABLETS BY it y of OTHIAZID 00:00: MOUTH [place] 37.5-25 mg 00 EVERY DAY Medi kacey tablet Branch TRIAMTERENE 2020-0 Yes [id number] TAKE 2 [facility] -HYDROCHLOR 9-08 TABLETS BY it y of OTHIAZID 00:00: MOUTH [place] 37.5-25 mg 00 EVERY DAY Medi kacey tablet Branch TRIAMTERENE 2020-0 Yes [id number] TAKE 2 [facility] -HYDROCHLOR 9-08 TABLETS BY it y of OTHIAZID 00:00: MOUTH [place] 37.5-25 mg 00 EVERY DAY Medi kacey tablet Branch TRIAMTERENE 2020-0 Yes [id number] TAKE 2 [facility] -HYDROCHLOR 9-08 TABLETS BY it y of OTHIAZID 00:00: MOUTH [place] 37.5-25 mg 00 EVERY DAY Medi k[facility] tablet Branch TRIAMTERENE 2020-0 Yes [id number] TAKE 2 [facility] -HYDROCHLOR 9-08 TABLETS BY it y of OTHIAZID 00:00: MOUTH [place] 37.5-25 mg 00 EVERY DAY Medi kacey tablet Branch TRIAMTERENE 2020-0 Yes [id number] TAKE 2 [facility] -HYDROCHLOR 9-08 TABLETS BY it y of OTHIAZID 00:00: MOUTH [place] 37.5-25 mg 00 EVERY DAY Medi kacey tablet Branch TRIAMTERENE 2020-0 Yes [id number] TAKE 2 [facility] -HYDROCHLOR 9-08 TABLETS BY it y of OTHIAZID 00:00: MOUTH [place] 37.5-25 mg 00 EVERY DAY Medi kacey tablet Branch TRIAMTERENE 2020-0 Yes [id number] TAKE 2 [facility] -HYDROCHLOR 9-08 TABLETS BY it y of OTHIAZID 00:00: MOUTH [place] 37.5-25 mg 00 EVERY DAY Medi kacey tablet Branch TRIAMTERENE 2020-0 Yes [id number] TAKE 2 [facility] -HYDROCHLOR 9-08 TABLETS BY it y of OTHIAZID 00:00: MOUTH [place] 37.5-25 mg 00 EVERY DAY Medi kacey tablet Branch TRIAMTERENE 2020-0 Yes [id number] TAKE 2 [facility] -HYDROCHLOR 9-08 TABLETS BY it y of OTHIAZID 00:00: MOUTH [place] 37.5-25 mg 00 EVERY DAY Medi kacey tablet Branch TRIAMTERENE 2020-0 Yes [id number] TAKE 2 [facility] -HYDROCHLOR 9-08 TABLETS BY it y of OTHIAZID 00:00: MOUTH [place] 37.5-25 mg 00 EVERY DAY Medi kacey tablet Branch TRIAMTERENE 2020-0 Yes [id number] TAKE 2 [facility] -HYDROCHLOR 9-08 TABLETS BY it y of OTHIAZID 00:00: MOUTH [place] 37.5-25 mg 00 EVERY DAY Medi kacey tablet Branch TRIAMTERENE 2020-0 Yes [id number] TAKE 2 [facility] -HYDROCHLOR 9-08 TABLETS BY it y of OTHIAZID 00:00: MOUTH [place] 37.5-25 mg 00 EVERY DAY Medi kacey tablet Branch TRIAMTERENE 2020-0 Yes [id number] TAKE 2 [facility] -HYDROCHLOR 9-08 TABLETS BY it y of OTHIAZID 00:00: MOUTH [place] 37.5-25 mg 00 EVERY DAY Medi kacey tablet Branch TRIAMTERENE 2020-0 Yes [id number] TAKE 2 [facility] -HYDROCHLOR 9-08 TABLETS BY it y of OTHIAZID 00:00: MOUTH [place] 37.5-25 mg 00 EVERY DAY Medi kacey tablet Branch TRIAMTERENE 2020-0 Yes [id number] TAKE 2 [facility] -HYDROCHLOR 9-08 TABLETS BY it y of OTHIAZID 00:00: MOUTH [place] 37.5-25 mg 00 EVERY DAY Medi kacey tablet Branch TRIAMTERENE 2020-0 Yes [id number] TAKE 2 [facility] -HYDROCHLOR 9-08 TABLETS BY it y of OTHIAZID 00:00: MOUTH [place] 37.5-25 mg 00 EVERY DAY Medi kacey tablet Branch TRIAMTERENE 2020-0 Yes [id number] TAKE 2 [facility] -HYDROCHLOR 9-08 TABLETS BY it y of OTHIAZID 00:00: MOUTH [place] 37.5-25 mg 00 EVERY DAY Medi kacey tablet Branch TRIAMTERENE 2020-0 Yes [id number] TAKE 2 [facility] -HYDROCHLOR 9-08 TABLETS BY it y of OTHIAZID 00:00: MOUTH [place] 37.5-25 mg 00 EVERY DAY Medi kacey tablet Branch TRIAMTERENE 2020-0 2020- No [id number] TAKE 2 [facility] -HYDROCHLOR 9-08 12-07 TABLETS BY i ty of OTHIAZID 00:00: 00:00 MOUTH [place] 37.5-25 mg 00 :00 EVERY DAY Medi kacey tablet Branch TRIAMTERENE 2020-0 2020- No [id number] TAKE 2 [facility] -HYDROCHLOR 9-08 12-07 TABLETS BY i ty of OTHIAZID 00:00: 00:00 MOUTH [place] 37.5-25 mg 00 :00 EVERY DAY Medi kacey tablet Branch Dexlansopra 2020-0 Yes [id number] 60mg Take 1 [facility] zole 8-24 capsule by ity of (DEXILANT) 00:00: mouth [place] 60 mg 00 daily. Medical capsule STOP Branch ESOMEPRAZO LE. ramelteon 8 2020-0 Yes [id number] 8mg Take 1 [facility] mg tablet 8-24 tablet by ity o f 00:00: mouth at [place] 00 bedtime as Medical needed for Branch Insomnia. STOP TRAZODONE. Dexlansopra 2020-0 Yes [id number] 60mg Take 1 [facility] zole 8-24 capsule by ity of (DEXILANT) 00:00: mouth [place] 60 mg 00 daily. Medical capsule STOP Branch ESOMEPRAZO LE. ramelteon 8 2020-0 Yes [id number] 8mg Take 1 [facility] mg tablet 8-24 tablet by ity o f 00:00: mouth at [place] 00 bedtime as Medical needed for Branch Insomnia. STOP TRAZODONE. Dexlansopra 2020-0 Yes [id number] 60mg Take 1 [facility] zole 8-24 capsule by ity of (DEXILANT) 00:00: mouth [place] 60 mg 00 daily. Medical capsule STOP Branch ESOMEPRAZO LE. ramelteon 8 2020-0 Yes [id number] 8mg Take 1 [facility] mg tablet 8-24 tablet by ity o f 00:00: mouth at [place] 00 bedtime as Medical needed for Branch Insomnia. STOP TRAZODONE. Dexlansopra 2020-0 Yes [id number] 60mg Take 1 [facility] zole 8-24 capsule by ity of (DEXILANT) 00:00: mouth [place] 60 mg 00 daily. Medical capsule STOP Branch ESOMEPRAZO LE. ramelteon 8 2020-0 Yes [id number] 8mg Take 1 [facility] mg tablet 8-24 tablet by ity o f 00:00: mouth at [place] 00 bedtime as Medical needed for Branch Insomnia. STOP TRAZODONE. Dexlansopra 2020-0 Yes [id number] 60mg Take 1 [facility] zole 8-24 capsule by ity of (DEXILANT) 00:00: mouth [place] 60 mg 00 daily. Medical capsule STOP Branch ESOMEPRAZO LE. ramelteon 8 2020-0 Yes [id number] 8mg Take 1 [facility] mg tablet 8-24 tablet by ity o f 00:00: mouth at [place] 00 bedtime as Medical needed for Branch Insomnia. STOP TRAZODONE. Dexlansopra 2020-0 Yes [id number] 60mg Take 1 [facility] zole 8-24 capsule by ity of (DEXILANT) 00:00: mouth [place] 60 mg 00 daily. Medical capsule STOP Branch ESOMEPRAZO LE. Dexlansopra 2020-0 Yes [id number] 60mg Take 1 [facility] zole 8-24 capsule by ity of (DEXILANT) 00:00: mouth [place] 60 mg 00 daily. Medical capsule STOP Branch ESOMEPRAZO LE. Dexlansopra 2020-0 Yes [id number] 60mg Take 1 [facility] zole 8-24 capsule by ity of (DEXILANT) 00:00: mouth [place] 60 mg 00 daily. Medical capsule STOP Branch ESOMEPRAZO LE. Dexlansopra 2020-0 Yes [id number] 60mg Take 1 [facility] zole 8-24 capsule by ity of (DEXILANT) 00:00: mouth [place] 60 mg 00 daily. Medical capsule STOP Branch ESOMEPRAZO LE. Dexlansopra 2020-0 Yes [id number] 60mg Take 1 [facility] zole 8-24 capsule by ity of (DEXILANT) 00:00: mouth [place] 60 mg 00 daily. Medical capsule STOP Branch ESOMEPRAZO LE. Dexlansopra 2020-0 Yes [id number] 60mg Take 1 [facility] zole 8-24 capsule by ity of (DEXILANT) 00:00: mouth [place] 60 mg 00 daily. Medical capsule STOP Branch ESOMEPRAZO LE. Dexlansopra 2020-0 Yes [id number] 60mg Take 1 [facility] zole 8-24 capsule by ity of (DEXILANT) 00:00: mouth [place] 60 mg 00 daily. Medical capsule STOP Branch ESOMEPRAZO LE. Dexlansopra 2020-0 Yes [id number] 60mg Take 1 [facility] zole 8-24 capsule by ity of (DEXILANT) 00:00: mouth [place] 60 mg 00 daily. Medical capsule STOP Branch ESOMEPRAZO LE. Dexlansopra 2020-0 Yes [id number] 60mg Take 1 [facility] zole 8-24 capsule by ity of (DEXILANT) 00:00: mouth [place] 60 mg 00 daily. Medical capsule STOP Branch ESOMEPRAZO LE. Dexlansopra 2020-0 Yes [id number] 60mg Take 1 [facility] zole 8-24 capsule by ity of (DEXILANT) 00:00: mouth [place] 60 mg 00 daily. Medical capsule STOP Branch ESOMEPRAZO LE. Dexlansopra 2020-0 Yes [id number] 60mg Take 1 [facility] zole 8-24 capsule by ity of (DEXILANT) 00:00: mouth [place] 60 mg 00 daily. Medical capsule STOP Branch ESOMEPRAZO LE. Dexlansopra 2020-0 Yes [id number] 60mg Take 1 [facility] zole 8-24 capsule by ity of (DEXILANT) 00:00: mouth [place] 60 mg 00 daily. Medical capsule STOP Branch ESOMEPRAZO LE. Dexlansopra 2020-0 Yes [id number] 60mg Take 1 [facility] zole 8-24 capsule by ity of (DEXILANT) 00:00: mouth [place] 60 mg 00 daily. Medical capsule STOP Branch ESOMEPRAZO LE. Dexlansopra 2020-0 Yes [id number] 60mg Take 1 [facility] zole 8-24 capsule by ity of (DEXILANT) 00:00: mouth [place] 60 mg 00 daily. Medical capsule STOP Branch ESOMEPRAZO LE. Dexlansopra 2020-0 Yes [id number] 60mg Take 1 [facility] zole 8-24 capsule by ity of (DEXILANT) 00:00: mouth [place] 60 mg 00 daily. Medical capsule STOP Branch ESOMEPRAZO LE. Dexlansopra 2020-0 Yes [id number] 60mg Take 1 [facility] zole 8-24 capsule by ity of (DEXILANT) 00:00: mouth [place] 60 mg 00 daily. Medical capsule STOP Branch ESOMEPRAZO LE. Dexlansopra 2020-0 Yes [id number] 60mg Take 1 [facility] zole 8-24 capsule by ity of (DEXILANT) 00:00: mouth [place] 60 mg 00 daily. Medical capsule STOP Branch ESOMEPRAZO LE. Dexlansopra 2020-0 Yes [id number] 60mg Take 1 [facility] zole 8-24 capsule by ity of (DEXILANT) 00:00: mouth [place] 60 mg 00 daily. Medical capsule STOP Branch ESOMEPRAZO LE. Dexlansopra 2020-0 Yes [id number] 60mg Take 1 [facility] zole 8-24 capsule by ity of (DEXILANT) 00:00: mouth [place] 60 mg 00 daily. Medical capsule STOP Branch ESOMEPRAZO LE. Dexlansopra 2020-0 Yes [id number] 60mg Take 1 [facility] zole 8-24 capsule by ity of (DEXILANT) 00:00: mouth [place] 60 mg 00 daily. Medical capsule STOP Branch ESOMEPRAZO LE. Dexlansopra 2020-0 Yes [id number] 60mg Take 1 [facility] zole 8-24 capsule by ity of (DEXILANT) 00:00: mouth [place] 60 mg 00 daily. Medical capsule STOP Branch ESOMEPRAZO LE. Dexlansopra 2020-0 Yes [id number] 60mg Take 1 [facility] zole 8-24 capsule by ity of (DEXILANT) 00:00: mouth [place] 60 mg 00 daily. Medical capsule STOP Branch ESOMEPRAZO LE. Dexlansopra 2020-0 Yes [id number] 60mg Take 1 [facility] zole 8-24 capsule by ity of (DEXILANT) 00:00: mouth [place] 60 mg 00 daily. Medical capsule STOP Branch ESOMEPRAZO LE. Dexlansopra 2020-0 Yes [id number] 60mg Take 1 [facility] zole 8-24 capsule by ity of (DEXILANT) 00:00: mouth [place] 60 mg 00 daily. Medical capsule STOP Branch ESOMEPRAZO LE. Dexlansopra 2020-0 Yes [id number] 60mg Take 1 [facility] zole 8-24 capsule by ity of (DEXILANT) 00:00: mouth [place] 60 mg 00 daily. Medical capsule STOP Branch ESOMEPRAZO LE. Dexlansopra 2020-0 Yes [id number] 60mg Take 1 [facility] zole 8-24 capsule by ity of (DEXILANT) 00:00: mouth [place] 60 mg 00 daily. Medical capsule STOP Branch ESOMEPRAZO LE. Dexlansopra 2020-0 Yes [id number] 60mg Take 1 [facility] zole 8-24 capsule by ity of (DEXILANT) 00:00: mouth [place] 60 mg 00 daily. Medical capsule STOP Branch ESOMEPRAZO LE. Dexlansopra 2020-0 Yes [id number] 60mg Take 1 [facility] zole 8-24 capsule by ity of (DEXILANT) 00:00: mouth [place] 60 mg 00 daily. Medical capsule STOP Branch ESOMEPRAZO LE. Dexlansopra 2020-0 Yes [id number] 60mg Take 1 [facility] zole 8-24 capsule by ity of (DEXILANT) 00:00: mouth [place] 60 mg 00 daily. Medical capsule STOP Branch ESOMEPRAZO LE. Dexlansopra 2020-0 Yes [id number] 60mg Take 1 [facility] zole 8-24 capsule by ity of (DEXILANT) 00:00: mouth [place] 60 mg 00 daily. Medical capsule STOP Branch ESOMEPRAZO LE. Dexlansopra 2020-0 Yes [id number] 60mg Take 1 [facility] zole 8-24 capsule by ity of (DEXILANT) 00:00: mouth [place] 60 mg 00 daily. Medical capsule STOP Branch ESOMEPRAZO LE. Dexlansopra 2020-0 Yes [id number] 60mg Take 1 [facility] zole 8-24 capsule by ity of (DEXILANT) 00:00: mouth [place] 60 mg 00 daily. Medical capsule STOP Branch ESOMEPRAZO LE. Dexlansopra 2020-0 Yes [id number] 60mg Take 1 [facility] zole 8-24 capsule by ity of (DEXILANT) 00:00: mouth [place] 60 mg 00 daily. Medical capsule STOP Branch ESOMEPRAZO LE. Dexlansopra 2020-0 Yes [id number] 60mg Take 1 [facility] zole 8-24 capsule by ity of (DEXILANT) 00:00: mouth [place] 60 mg 00 daily. Medical capsule STOP Branch ESOMEPRAZO LE. Dexlansopra 2020-0 Yes [id number] 60mg Take 1 [facility] zole 8-24 capsule by ity of (DEXILANT) 00:00: mouth [place] 60 mg 00 daily. Medical capsule STOP Branch ESOMEPRAZO LE. Dexlansopra 2020-0 Yes [id number] 60mg Take 1 [facility] zole 8-24 capsule by ity of (DEXILANT) 00:00: mouth [place] 60 mg 00 daily. Medical capsule STOP Branch ESOMEPRAZO LE. Dexlansopra 2020-0 Yes [id number] 60mg Take 1 [facility] zole 8-24 capsule by ity of (DEXILANT) 00:00: mouth [place] 60 mg 00 daily. Medical capsule STOP Branch ESOMEPRAZO LE. Dexlansopra 2020-0 Yes [id number] 60mg Take 1 [facility] zole 8-24 capsule by ity of (DEXILANT) 00:00: mouth [place] 60 mg 00 daily. Medical capsule STOP Branch ESOMEPRAZO LE. Dexlansopra 2020-0 Yes [id number] 60mg Take 1 [facility] zole 8-24 capsule by ity of (DEXILANT) 00:00: mouth [place] 60 mg 00 daily. Medical capsule STOP Branch ESOMEPRAZO LE. Dexlansopra 2020-0 Yes [id number] 60mg Take 1 [facility] zole 8-24 capsule by ity of (DEXILANT) 00:00: mouth [place] 60 mg 00 daily. Medical capsule STOP Branch ESOMEPRAZO LE. Dexlansopra 2020-0 Yes [id number] 60mg Take 1 [facility] zole 8-24 capsule by ity of (DEXILANT) 00:00: mouth [place] 60 mg 00 daily. Medical capsule STOP Branch ESOMEPRAZO LE. Dexlansopra 2020-0 Yes [id number] 60mg Take 1 [facility] zole 8-24 capsule by ity of (DEXILANT) 00:00: mouth [place] 60 mg 00 daily. Medical capsule STOP Branch ESOMEPRAZO LE. Dexlansopra 2020-0 Yes [id number] 60mg Take 1 [facility] zole 8-24 capsule by ity of (DEXILANT) 00:00: mouth [place] 60 mg 00 daily. Medical capsule STOP Branch ESOMEPRAZO LE. Dexlansopra 2020-0 Yes [id number] 60mg Take 1 [facility] zole 8-24 capsule by ity of (DEXILANT) 00:00: mouth [place] 60 mg 00 daily. Medical capsule STOP Branch ESOMEPRAZO LE. Dexlansopra 2020-0 Yes [id number] 60mg Take 1 [facility] zole 8-24 capsule by ity of (DEXILANT) 00:00: mouth [place] 60 mg 00 daily. Medical capsule STOP Branch ESOMEPRAZO LE. Dexlansopra 2020-0 Yes [id number] 60mg Take 1 [facility] zole 8-24 capsule by ity of (DEXILANT) 00:00: mouth [place] 60 mg 00 daily. Medical capsule STOP Branch ESOMEPRAZO LE. Dexlansopra 2020-0 Yes [id number] 60mg Take 1 [facility] zole 8-24 capsule by ity of (DEXILANT) 00:00: mouth [place] 60 mg 00 daily. Medical capsule STOP Branch ESOMEPRAZO LE. Dexlansopra 2020-0 2020- No [id number] 60mg Take 1 [facility] zole 8-24 12-22 capsule by ity of (DEXILANT) 00:00: 00:00 mouth [place] 60 mg 00 :00 daily. Medical capsule STOP Branch ESOMEPRAZO LE. ramelteon 8 2019-0 2020- No [id number] 8mg Take 1 [facility] mg tablet 8-24 09-16 tablet by ity of 00:00: 00:00 mouth at [place] 00 :00 bedtime as Medical needed for Branch Insomnia. STOP TRAZODONE. IBANDRONATE 2020-0 Yes [id number] 150mg TAKE 1 [facility] 150 mg 7-31 TABLET BY ity of tablet 00:00: MOUTH ONCE [place] 00 EVERY Medical MONTH. Branch IBANDRONATE 2020-0 Yes [id number] 150mg TAKE 1 [facility] 150 mg 7-31 TABLET BY ity of tablet 00:00: MOUTH ONCE [place] 00 EVERY Medical MONTH. Branch IBANDRONATE 2020-0 Yes [id number] 150mg TAKE 1 [facility] 150 mg 7-31 TABLET BY ity of tablet 00:00: MOUTH ONCE [place] 00 EVERY Medical MONTH. Branch IBANDRONATE 2020-0 Yes [id number] 150mg TAKE 1 [facility] 150 mg 7-31 TABLET BY ity of tablet 00:00: MOUTH ONCE [place] 00 EVERY Medical MONTH. Branch IBANDRONATE 2020-0 Yes [id number] 150mg TAKE 1 [facility] 150 mg 7-31 TABLET BY ity of tablet 00:00: MOUTH ONCE [place] 00 EVERY Medical MONTH. Branch IBANDRONATE 2020-0 Yes [id number] 150mg TAKE 1 [facility] 150 mg 7-31 TABLET BY ity of tablet 00:00: MOUTH ONCE [place] 00 EVERY Medical MONTH. Branch IBANDRONATE 2020-0 Yes [id number] 150mg TAKE 1 [facility] 150 mg 7-31 TABLET BY ity of tablet 00:00: MOUTH ONCE [place] 00 EVERY Medical MONTH. Branch IBANDRONATE 2020-0 Yes [id number] 150mg TAKE 1 [facility] 150 mg 7-31 TABLET BY ity of tablet 00:00: MOUTH ONCE [place] 00 EVERY Medical MONTH. Branch IBANDRONATE 2020-0 Yes [id number] 150mg TAKE 1 [facility] 150 mg 7-31 TABLET BY ity of tablet 00:00: MOUTH ONCE [place] 00 EVERY Medical MONTH. Branch IBANDRONATE 2020-0 Yes [id number] 150mg TAKE 1 [facility] 150 mg 7-31 TABLET BY ity of tablet 00:00: MOUTH ONCE [place] 00 EVERY Medical MONTH. Branch IBANDRONATE 2020-0 Yes [id number] 150mg TAKE 1 [facility] 150 mg 7-31 TABLET BY ity of tablet 00:00: MOUTH ONCE [place] 00 EVERY Medical MONTH. Branch IBANDRONATE 2020-0 Yes [id number] 150mg TAKE 1 [facility] 150 mg 7-31 TABLET BY ity of tablet 00:00: MOUTH ONCE [place] 00 EVERY Medical MONTH. Branch IBANDRONATE 2020-0 Yes [id number] 150mg TAKE 1 [facility] 150 mg 7-31 TABLET BY ity of tablet 00:00: MOUTH ONCE [place] 00 EVERY Medical MONTH. Branch IBANDRONATE 2020-0 Yes [id number] 150mg TAKE 1 [facility] 150 mg 7-31 TABLET BY ity of tablet 00:00: MOUTH ONCE [place] 00 EVERY Medical MONTH. Branch IBANDRONATE 2020-0 Yes [id number] 150mg TAKE 1 [facility] 150 mg 7-31 TABLET BY ity of tablet 00:00: MOUTH ONCE [place] 00 EVERY Medical MONTH. Branch IBANDRONATE 2020-0 Yes [id number] 150mg TAKE 1 [facility] 150 mg 7-31 TABLET BY ity of tablet 00:00: MOUTH ONCE [place] 00 EVERY Medical MONTH. Branch IBANDRONATE 2020-0 Yes [id number] 150mg TAKE 1 [facility] 150 mg 7-31 TABLET BY [facility] tablet 00:00: MOUTH ONCE [place] 00 EVERY Medical MONTH. Branch IBANDRONATE 2020-0 Yes [id number] 150mg TAKE 1 [facility] 150 mg 7-31 TABLET BY [facility] tablet 00:00: MOUTH ONCE [place] 00 EVERY Medical MONTH. Branch IBANDRONATE 2020-0 Yes [id number] 150mg TAKE 1 [facility] 150 mg 7-31 TABLET BY [facility] tablet 00:00: MOUTH ONCE [place] 00 EVERY Medical MONTH. Branch IBANDRONATE 2020-0 Yes [id number] 150mg TAKE 1 [facility] 150 mg 7-31 TABLET BY [facility] tablet 00:00: MOUTH ONCE [place] 00 EVERY Medical MONTH. Branch IBANDRONATE 2020-0 Yes [id number] 150mg TAKE 1 [facility] 150 mg 7-31 TABLET BY [facility] tablet 00:00: MOUTH ONCE [place] 00 EVERY Medical MONTH. Branch IBANDRONATE 2020-0 Yes [id number] 150mg TAKE 1 [facility] 150 mg 7-31 TABLET BY [facility] tablet 00:00: MOUTH ONCE [place] 00 EVERY Medical MONTH. Branch IBANDRONATE 2020-0 Yes [id number] 150mg TAKE 1 [facility] 150 mg 7-31 TABLET BY [facility] tablet 00:00: MOUTH ONCE [place] 00 EVERY Medical MONTH. Branch IBANDRONATE 2020-0 Yes [id number] 150mg TAKE 1 [facility] 150 mg 7-31 TABLET BY [facility] tablet 00:00: MOUTH ONCE [place] 00 EVERY Medical MONTH. Branch IBANDRONATE 2020-0 Yes [id number] 150mg TAKE 1 [facility] 150 mg 7-31 TABLET BY [facility] tablet 00:00: MOUTH ONCE [place] 00 EVERY Medical MONTH. Branch IBANDRONATE 2020-0 Yes [id number] 150mg TAKE 1 [facility] 150 mg 7-31 TABLET BY [facility] of tablet 00:00: MOUTH ONCE [place] 00 EVERY Medical MONTH. Branch IBANDRONATE 2020-0 Yes [id number] 150mg TAKE 1 [facility] 150 mg 7-31 TABLET BY [facility] tablet 00:00: MOUTH ONCE [place] 00 EVERY Medical MONTH. Branch IBANDRONATE 2020-0 Yes [id number] 150mg TAKE 1 [facility] 150 mg 7-31 TABLET BY [facility] tablet 00:00: MOUTH ONCE [place] 00 EVERY Medical MONTH. Branch IBANDRONATE 2020-0 Yes [id number] 150mg TAKE 1 [facility] 150 mg 7-31 TABLET BY [facility] tablet 00:00: MOUTH ONCE [place] 00 EVERY Medical MONTH. Branch IBANDRONATE 2020-0 Yes [id number] 150mg TAKE 1 [facility] 150 mg 7-31 TABLET BY [facility] tablet 00:00: MOUTH ONCE [place] 00 EVERY Medical MONTH. Branch IBANDRONATE 2020-0 Yes [id number] 150mg TAKE 1 [facility] 150 mg 7-31 TABLET BY [facility] tablet 00:00: MOUTH ONCE [place] 00 EVERY Medical MONTH. Branch IBANDRONATE 2020-0 Yes [id number] 150mg TAKE 1 [facility] 150 mg 7-31 TABLET BY [facility] tablet 00:00: MOUTH ONCE [place] 00 EVERY Medical MONTH. Branch IBANDRONATE 2020-0 Yes [id number] 150mg TAKE 1 [facility] 150 mg 7-31 TABLET BY [facility] tablet 00:00: MOUTH ONCE [place] 00 EVERY Medical MONTH. Branch IBANDRONATE 2020-0 Yes [id number] 150mg TAKE 1 [facility] 150 mg 7-31 TABLET BY [facility] tablet 00:00: MOUTH ONCE [place] 00 EVERY Medical MONTH. Branch IBANDRONATE 2020-0 Yes [id number] 150mg TAKE 1 [facility] 150 mg 7-31 TABLET BY [facility] tablet 00:00: MOUTH ONCE [place] 00 EVERY Medical MONTH. Branch IBANDRONATE 2020-0 Yes [id number] 150mg TAKE 1 [facility] 150 mg 7-31 TABLET BY [facility] tablet 00:00: MOUTH ONCE [place] 00 EVERY Medical MONTH. Branch IBANDRONATE 2020-0 Yes [id number] 150mg TAKE 1 [facility] 150 mg 7-31 TABLET BY [facility] tablet 00:00: MOUTH ONCE [place] 00 EVERY Medical MONTH. Branch IBANDRONATE 2020-0 Yes [id number] 150mg TAKE 1 [facility] 150 mg 7-31 TABLET BY [facility] tablet 00:00: MOUTH ONCE [place] 00 EVERY Medical MONTH. Branch IBANDRONATE 2020-0 Yes [id number] 150mg TAKE 1 [facility] 150 mg 7-31 TABLET BY [facility] tablet 00:00: MOUTH ONCE [place] 00 EVERY Medical MONTH. Branch IBANDRONATE 2020-0 Yes [id number] 150mg TAKE 1 [facility] 150 mg 7-31 TABLET BY [facility] tablet 00:00: MOUTH ONCE [place] 00 EVERY Medical MONTH. Branch IBANDRONATE 2020-0 Yes [id number] 150mg TAKE 1 [facility] 150 mg 7-31 TABLET BY [facility] tablet 00:00: MOUTH ONCE [place] 00 EVERY Medical MONTH. Branch IBANDRONATE 2020-0 Yes [id number] 150mg TAKE 1 [facility] 150 mg 7-31 TABLET BY [facility] tablet 00:00: MOUTH ONCE [place] 00 EVERY Medical MONTH. Branch IBANDRONATE 2020-0 Yes [id number] 150mg TAKE 1 [facility] 150 mg 7-31 TABLET BY [facility] tablet 00:00: MOUTH ONCE [place] 00 EVERY Medical MONTH. Branch IBANDRONATE 2020-0 Yes [id number] 150mg TAKE 1 [facility] 150 mg 7-31 TABLET BY [facility] tablet 00:00: MOUTH ONCE [place] 00 EVERY Medical MONTH. Branch IBANDRONATE 2020-0 Yes [id number] 150mg TAKE 1 [facility] 150 mg 7-31 TABLET BY [facility] tablet 00:00: MOUTH ONCE [place] 00 EVERY Medical MONTH. Branch IBANDRONATE 2020-0 Yes [id number] 150mg TAKE 1 [facility] 150 mg 7-31 TABLET BY [facility] tablet 00:00: MOUTH ONCE [place] 00 EVERY Medical MONTH. Branch IBANDRONATE 2020-0 Yes [id number] 150mg TAKE 1 [facility] 150 mg 7-31 TABLET BY [facility] of tablet 00:00: MOUTH ONCE [place] 00 EVERY Medical MONTH. Branch IBANDRONATE 2020-0 Yes [id number] 150mg TAKE 1 [facility] 150 mg 7-31 TABLET BY [facility] tablet 00:00: MOUTH ONCE [place] 00 EVERY Medical MONTH. Branch IBANDRONATE 2020-0 Yes [id number] 150mg TAKE 1 [facility] 150 mg 7-31 TABLET BY [facility] of tablet 00:00: MOUTH ONCE [place] 00 EVERY Medical MONTH. Branch IBANDRONATE 2020-0 Yes [id number] 150mg TAKE 1 [facility] 150 mg 7-31 TABLET BY [facility] tablet 00:00: MOUTH ONCE [place] 00 EVERY Medical MONTH. Branch IBANDRONATE 2020-0 Yes [id number] 150mg TAKE 1 [facility] 150 mg 7-31 TABLET BY [facility] tablet 00:00: MOUTH ONCE [place] 00 EVERY Medical MONTH. Branch IBANDRONATE 2020-0 Yes [id number] 150mg TAKE 1 [facility] 150 mg 7-31 TABLET BY [facility] tablet 00:00: MOUTH ONCE [place] 00 EVERY Medical MONTH. Branch IBANDRONATE 2020-0 Yes [id number] 150mg TAKE 1 [facility] 150 mg 7-31 TABLET BY [facility] tablet 00:00: MOUTH ONCE [place] 00 EVERY Medical MONTH. Branch IBANDRONATE 2020-0 Yes [id number] 150mg TAKE 1 [facility] 150 mg 7-31 TABLET BY [facility] tablet 00:00: MOUTH ONCE [place] 00 EVERY Medical MONTH. Branch IBANDRONATE 2020-0 Yes [id number] 150mg TAKE 1 [facility] 150 mg 7-31 TABLET BY [facility] tablet 00:00: MOUTH ONCE [place] 00 EVERY Medical MONTH. Branch IBANDRONATE 2020-0 Yes [id number] 150mg TAKE 1 [facility] 150 mg 7-31 TABLET BY [facility] tablet 00:00: MOUTH ONCE [place] 00 EVERY Medical MONTH. Branch IBANDRONATE 2020-0 Yes [id number] 150mg TAKE 1 [facility] 150 mg 7-31 TABLET BY [facility] tablet 00:00: MOUTH ONCE [place] 00 EVERY Medical MONTH. Branch IBANDRONATE 2020-0 Yes [id number] 150mg TAKE 1 [facility] 150 mg 7-31 TABLET BY [facility] tablet 00:00: MOUTH ONCE [place] 00 EVERY Medical MONTH. Branch IBANDRONATE 2020-0 Yes [id number] 150mg TAKE 1 [facility] 150 mg 7-31 TABLET BY [facility] tablet 00:00: MOUTH ONCE [place] 00 EVERY Medical MONTH. Branch IBANDRONATE 2020-0 Yes [id number] 150mg TAKE 1 [facility] 150 mg 7-31 TABLET BY [facility] tablet 00:00: MOUTH ONCE [place] 00 EVERY Medical MONTH. Branch IBANDRONATE 2020-0 Yes [id number] 150mg TAKE 1 [facility] 150 mg 7-31 TABLET BY [facility] tablet 00:00: MOUTH ONCE [place] 00 EVERY Medical MONTH. Branch IBANDRONATE 2020-0 Yes [id number] 150mg TAKE 1 [facility] 150 mg 7-31 TABLET BY [facility] tablet 00:00: MOUTH ONCE [place] 00 EVERY Medical MONTH. Branch IBANDRONATE 2020-0 Yes [id number] 150mg TAKE 1 [facility] 150 mg 7-31 TABLET BY [facility] tablet 00:00: MOUTH ONCE [place] 00 EVERY Medical MONTH. Branch IBANDRONATE 2020-0 Yes [id number] 150mg TAKE 1 [facility] 150 mg 7-31 TABLET BY [facility] tablet 00:00: MOUTH ONCE [place] 00 EVERY Medical MONTH. Branch IBANDRONATE 2020-0 Yes [id number] 150mg TAKE 1 [facility] 150 mg 7-31 TABLET BY [facility] tablet 00:00: MOUTH ONCE [place] 00 EVERY Medical MONTH. Branch IBANDRONATE 2020-0 Yes [id number] 150mg TAKE 1 [facility] 150 mg 7-31 TABLET BY [facility] of tablet 00:00: MOUTH ONCE [place] 00 EVERY Medical MONTH. Branch IBANDRONATE 2020-0 Yes [id number] 150mg TAKE 1 [facility] 150 mg 7-31 TABLET BY [facility] of tablet 00:00: MOUTH ONCE [place] 00 EVERY Medical MONTH. Branch IBANDRONATE 2020-0 Yes [id number] 150mg TAKE 1 [facility] 150 mg 7-31 TABLET BY [facility] tablet 00:00: MOUTH ONCE [place] 00 EVERY Medical MONTH. Branch IBANDRONATE 2020-0 Yes [id number] 150mg TAKE 1 [facility] 150 mg 7-31 TABLET BY [facility] tablet 00:00: MOUTH ONCE [place] 00 EVERY Medical MONTH. Branch IBANDRONATE 2020-0 Yes [id number] 150mg TAKE 1 [facility] 150 mg 7-31 TABLET BY [facility] of tablet 00:00: MOUTH ONCE [place] 00 EVERY Medical MONTH. Branch IBANDRONATE 2020-0 Yes [id number] 150mg TAKE 1 [facility] 150 mg 7-31 TABLET BY [facility] tablet 00:00: MOUTH ONCE [place] 00 EVERY Medical MONTH. Branch IBANDRONATE 2020-0 Yes [id number] 150mg TAKE 1 [facility] 150 mg 7-31 TABLET BY [facility] of tablet 00:00: MOUTH ONCE [place] 00 EVERY Medical MONTH. Branch IBANDRONATE 2020-0 Yes [id number] 150mg TAKE 1 [facility] 150 mg 7-31 TABLET BY [facility] of tablet 00:00: MOUTH ONCE [place] 00 EVERY Medical MONTH. Branch IBANDRONATE 2020-0 Yes [id number] 150mg TAKE 1 [facility] 150 mg 7-31 TABLET BY [facility] of tablet 00:00: MOUTH ONCE [place] 00 EVERY Medical MONTH. Branch IBANDRONATE 2020-0 Yes [id number] 150mg TAKE 1 [facility] 150 mg 7-31 TABLET BY [facility] tablet 00:00: MOUTH ONCE [place] 00 EVERY Medical MONTH. Branch IBANDRONATE 2020-0 Yes [id number] 150mg TAKE 1 [facility] 150 mg 7-31 TABLET BY [facility] of tablet 00:00: MOUTH ONCE [place] 00 EVERY Medical MONTH. Branch IBANDRONATE 2020-0 Yes [id number] 150mg TAKE 1 [facility] 150 mg 7-31 TABLET BY [facility] of tablet 00:00: MOUTH ONCE [place] 00 EVERY Medical MONTH. Branch IBANDRONATE 2020-0 Yes [id number] 150mg TAKE 1 [facility] 150 mg 7-31 TABLET BY [facility] of tablet 00:00: MOUTH ONCE [place] 00 EVERY Medical MONTH. Branch IBANDRONATE 2020-0 Yes [id number] 150mg TAKE 1 [facility] 150 mg 7-31 TABLET BY [facility] tablet 00:00: MOUTH ONCE [place] 00 EVERY Medical MONTH. Branch IBANDRONATE 2020-0 Yes [id number] 150mg TAKE 1 [facility] 150 mg 7-31 TABLET BY [facility] of tablet 00:00: MOUTH ONCE [place] 00 EVERY Medical MONTH. Branch IBANDRONATE 2020-0 Yes [id number] 150mg TAKE 1 [facility] 150 mg 7-31 TABLET BY [facility] of tablet 00:00: MOUTH ONCE [place] 00 EVERY Medical MONTH. Branch IBANDRONATE 2020-0 Yes [id number] 150mg TAKE 1 [facility] 150 mg 7-31 TABLET BY [facility] of tablet 00:00: MOUTH ONCE [place] 00 EVERY Medical MONTH. Branch IBANDRONATE 2020-0 Yes [id number] 150mg TAKE 1 [facility] 150 mg 7-31 TABLET BY [facility] of tablet 00:00: MOUTH ONCE [place] 00 EVERY Medical MONTH. Branch IBANDRONATE 2020-0 Yes [id number] 150mg TAKE 1 [facility] 150 mg 7-31 TABLET BY [facility] of tablet 00:00: MOUTH ONCE [place] 00 EVERY Medical MONTH. Branch IBANDRONATE 2020-0 Yes [id number] 150mg TAKE 1 [facility] 150 mg 7-31 TABLET BY [facility] of tablet 00:00: MOUTH ONCE [place] 00 EVERY Medical MONTH. Branch IBANDRONATE 2020-0 Yes [id number] 150mg TAKE 1 [facility] 150 mg 7-31 TABLET BY [facility] of tablet 00:00: MOUTH ONCE [place] 00 EVERY Medical MONTH. Branch IBANDRONATE 2020-0 Yes [id number] 150mg TAKE 1 [facility] 150 mg 7-31 TABLET BY [facility] of tablet 00:00: MOUTH ONCE [place] 00 EVERY Medical MONTH. Branch IBANDRONATE 2020-0 Yes [id number] 150mg TAKE 1 [facility] 150 mg 7-31 TABLET BY [facility] of tablet 00:00: MOUTH ONCE [place] 00 EVERY Medical MONTH. Branch IBANDRONATE 2020-0 Yes [id number] 150mg TAKE 1 [facility] 150 mg 7-31 TABLET BY [facility] tablet 00:00: MOUTH ONCE [place] 00 EVERY Medical MONTH. Branch IBANDRONATE 2020-0 Yes [id number] 150mg TAKE 1 [facility] 150 mg 7-31 TABLET BY [facility] tablet 00:00: MOUTH ONCE [place] 00 EVERY Medical MONTH. Branch IBANDRONATE 2020-0 Yes [id number] 150mg TAKE 1 [facility] 150 mg 7-31 TABLET BY [facility] tablet 00:00: MOUTH ONCE [place] 00 EVERY Medical MONTH. Branch IBANDRONATE 2020-0 Yes [id number] 150mg TAKE 1 [facility] 150 mg 7-31 TABLET BY [facility] tablet 00:00: MOUTH ONCE [place] 00 EVERY Medical MONTH. Branch IBANDRONATE 2020-0 Yes [id number] 150mg TAKE 1 [facility] 150 mg 7-31 TABLET BY [facility] of tablet 00:00: MOUTH ONCE [place] 00 EVERY Medical MONTH. Branch IBANDRONATE 2020-0 Yes [id number] 150mg TAKE 1 [facility] 150 mg 7-31 TABLET BY [facility] of tablet 00:00: MOUTH ONCE [place] 00 EVERY Medical MONTH. Branch IBANDRONATE 2020-0 Yes [id number] 150mg TAKE 1 [facility] 150 mg 7-31 TABLET BY [facility] tablet 00:00: MOUTH ONCE [place] 00 EVERY Medical MONTH. Branch ESOMEPRAZOL 2020-0 Yes [id number] TAKE 1 [facility] E 40 mg 7-28 CAPSULE BY [facility] of capsule 00:00: MOUTH [place] 00 DAILY WITH Medical BREAKFAST. Branch BRAND MEDICALLY NECESSARY. ESOMEPRAZOL 2020-0 Yes [id number] TAKE 1 [facility] E 40 mg 7-28 CAPSULE BY ity of capsule 00:00: MOUTH [place] 00 DAILY WITH Medical BREAKFAST. Branch BRAND MEDICALLY NECESSARY. ESOMEPRAZOL 2019-0 2020- No [id number] TAKE 1 [facility] E 40 mg 7-28 08-24 CAPSULE BY ity o f capsule 00:00: 00:00 MOUTH [place] 00 :00 DAILY WITH Medical BREAKFAST. Branch BRAND MEDICALLY NECESSARY. ESOMEPRAZOL 2020-0 2020- No [id number] TAKE 1 [facility] E 40 mg 7-28 08-24 CAPSULE BY ity o f capsule 00:00: 00:00 MOUTH [place] 00 :00 DAILY WITH Medical BREAKFAST. Branch BRAND MEDICALLY NECESSARY. ESOMEPRAZOL 2020-0 2020- No [id number] TAKE 1 [facility] E 40 mg 7-28 08-24 CAPSULE BY ity o f capsule 00:00: 00:00 MOUTH [place] 00 :00 DAILY WITH Medical BREAKFAST. Branch BRAND MEDICALLY NECESSARY. TRIAMTERENE 2020-0 Yes [id number] TAKE 2 [facility] -HYDROCHLOR 6-03 TABLETS BY it y of OTHIAZID 00:00: MOUTH [place] 37.5-25 mg 00 DAILY. Medical tablet Branch TRIAMTERENE 2020-0 Yes [id number] TAKE 2 [facility] -HYDROCHLOR 6-03 TABLETS BY it y of OTHIAZID 00:00: MOUTH [place] 37.5-25 mg 00 DAILY. Medical tablet Branch TRIAMTERENE 2020-0 Yes [id number] TAKE 2 [facility] -HYDROCHLOR 6-03 TABLETS BY it y of OTHIAZID 00:00: MOUTH [place] 37.5-25 mg 00 DAILY. Medical tablet Branch TRIAMTERENE 2020-0 Yes [id number] TAKE 2 [facility] -HYDROCHLOR 6-03 TABLETS BY it y of OTHIAZID 00:00: MOUTH [place] 37.5-25 mg 00 DAILY. Medical tablet Branch TRIAMTERENE 2020-0 Yes [id number] TAKE 2 [facility] -HYDROCHLOR 6-03 TABLETS BY it y of OTHIAZID 00:00: MOUTH [place] 37.5-25 mg 00 DAILY. Medical tablet Branch TRIAMTERENE 2020-0 Yes [id number] TAKE 2 [facility] -HYDROCHLOR 6-03 TABLETS BY it y of OTHIAZID 00:00: MOUTH [place] 37.5-25 mg 00 DAILY. Medical tablet Branch TRIAMTERENE 2020-0 Yes [id number] TAKE 2 [facility] -HYDROCHLOR 6-03 TABLETS BY it y of OTHIAZID 00:00: MOUTH [place] 37.5-25 mg 00 DAILY. Medical tablet Branch TRIAMTERENE 2020-0 Yes [id number] TAKE 2 [facility] -HYDROCHLOR 6-03 TABLETS BY it y of OTHIAZID 00:00: MOUTH [place] 37.5-25 mg 00 DAILY. Medical tablet Branch TRIAMTERENE 2020-0 Yes [id number] TAKE 2 [facility] -HYDROCHLOR 6-03 TABLETS BY it y of OTHIAZID 00:00: MOUTH [place] 37.5-25 mg 00 DAILY. Medical tablet Branch TRIAMTERENE 2020-0 Yes [id number] TAKE 2 [facility] -HYDROCHLOR 6-03 TABLETS BY it y of OTHIAZID 00:00: MOUTH [place] 37.5-25 mg 00 DAILY. Medical tablet Branch TRIAMTERENE 2020-0 2020- No [id number] TAKE 2 [facility] -HYDROCHLOR 6-03 09-08 TABLETS BY i ty of OTHIAZID 00:00: 00:00 MOUTH [place] 37.5-25 mg 00 :00 DAILY. Medical tablet Branch TRIAMTERENE 2020-0 2020- No [id number] TAKE 2 [facility] -HYDROCHLOR 6-03 09-08 TABLETS BY i ty of OTHIAZID 00:00: 00:00 MOUTH [place] 37.5-25 mg 00 :00 DAILY. Medical tablet Branch TIZANIDINE 2020-0 Yes [id number] 4mg TAKE 1-2 [facility] 4 mg tablet 5-07 TABLETS BY it y of 00:00: MOUTH [place] 00 EVERY 8 Medical (EIGHT) Branch HOURS NEEDED (MUSCLE PAIN OR SPASM). TIZANIDINE 2020-0 Yes [id number] 4mg TAKE 1-2 [facility] 4 mg tablet 5-07 TABLETS BY it y of 00:00: MOUTH [place] 00 EVERY 8 Medical (EIGHT) Branch HOURS NEEDED (MUSCLE PAIN OR SPASM). TIZANIDINE 2020-0 Yes [id number] 4mg TAKE 1-2 [facility] 4 mg tablet 5-07 TABLETS BY it y of 00:00: MOUTH [place] 00 EVERY 8 Medical (EIGHT) Branch HOURS NEEDED (MUSCLE PAIN OR SPASM). TIZANIDINE 2020-0 Yes [id number] 4mg TAKE 1-2 [facility] 4 mg tablet 5-07 TABLETS BY it y of 00:00: MOUTH [place] 00 EVERY 8 Medical (EIGHT) Branch HOURS NEEDED (MUSCLE PAIN OR SPASM). TIZANIDINE 2020-0 Yes [id number] 4mg TAKE 1-2 [facility] 4 mg tablet 5-07 TABLETS BY it y of 00:00: MOUTH [place] 00 EVERY 8 Medical (EIGHT) Branch HOURS NEEDED (MUSCLE PAIN OR SPASM). TIZANIDINE 2020-0 Yes [id number] 4mg TAKE 1-2 [facility] 4 mg tablet 5-07 TABLETS BY it y of 00:00: MOUTH [place] 00 EVERY 8 Medical (EIGHT) Branch HOURS NEEDED (MUSCLE PAIN OR SPASM). TIZANIDINE 2020-0 Yes [id number] 4mg TAKE 1-2 [facility] 4 mg tablet 5-07 TABLETS BY it y of 00:00: MOUTH [place] 00 EVERY 8 Medical (EIGHT) Branch HOURS NEEDED (MUSCLE PAIN OR SPASM). TIZANIDINE 2020-0 Yes [id number] 4mg TAKE 1-2 [facility] 4 mg tablet 5-07 TABLETS BY it y of 00:00: MOUTH [place] 00 EVERY 8 Medical (EIGHT) Branch HOURS NEEDED (MUSCLE PAIN OR SPASM). TIZANIDINE 2020-0 Yes [id number] 4mg TAKE 1-2 [facility] 4 mg tablet 5-07 TABLETS BY it y of 00:00: MOUTH [place] 00 EVERY 8 Medical (EIGHT) Branch HOURS NEEDED (MUSCLE PAIN OR SPASM). TIZANIDINE 2020-0 Yes [id number] 4mg TAKE 1-2 [facility] 4 mg tablet 5-07 TABLETS BY it y of 00:00: MOUTH [place] 00 EVERY 8 Medical (EIGHT) Branch HOURS NEEDED (MUSCLE PAIN OR SPASM). TIZANIDINE 2020-0 Yes [id number] 4mg TAKE 1-2 [facility] 4 mg tablet 5-07 TABLETS BY it y of 00:00: MOUTH [place] 00 EVERY 8 Medical (EIGHT) Branch HOURS NEEDED (MUSCLE PAIN OR SPASM). TIZANIDINE 2020-0 Yes [id number] 4mg TAKE 1-2 [facility] 4 mg tablet 5-07 TABLETS BY it y of 00:00: MOUTH [place] 00 EVERY 8 Medical (EIGHT) Branch HOURS NEEDED (MUSCLE PAIN OR SPASM). TIZANIDINE 2020-0 Yes [id number] 4mg TAKE 1-2 [facility] 4 mg tablet 5-07 TABLETS BY it y of 00:00: MOUTH [place] 00 EVERY 8 Medical (EIGHT) Branch HOURS NEEDED (MUSCLE PAIN OR SPASM). TIZANIDINE 2020-0 Yes [id number] 4mg TAKE 1-2 [facility] 4 mg tablet 5-07 TABLETS BY it y of 00:00: MOUTH [place] 00 EVERY 8 Medical (EIGHT) Branch HOURS NEEDED (MUSCLE PAIN OR SPASM). TIZANIDINE 2020-0 Yes [id number] 4mg TAKE 1-2 [facility] 4 mg tablet 5-07 TABLETS BY it y of 00:00: MOUTH [place] 00 EVERY 8 Medical (EIGHT) Branch HOURS NEEDED (MUSCLE PAIN OR SPASM). TIZANIDINE 2020-0 Yes [id number] 4mg TAKE 1-2 [facility] 4 mg tablet 5-07 TABLETS BY it y of 00:00: MOUTH [place] 00 EVERY 8 Medical (EIGHT) Branch HOURS NEEDED (MUSCLE PAIN OR SPASM). TIZANIDINE 2020-0 Yes [id number] 4mg TAKE 1-2 [facility] 4 mg tablet 5-07 TABLETS BY it y of 00:00: MOUTH [place] 00 EVERY 8 Medical (EIGHT) Branch HOURS NEEDED (MUSCLE PAIN OR SPASM). TIZANIDINE 2020-0 Yes [id number] 4mg TAKE 1-2 [facility] 4 mg tablet 5-07 TABLETS BY it y of 00:00: MOUTH [place] 00 EVERY 8 Medical (EIGHT) Branch HOURS NEEDED (MUSCLE PAIN OR SPASM). TIZANIDINE 2020-0 Yes [id number] 4mg TAKE 1-2 [facility] 4 mg tablet 5-07 TABLETS BY it y of 00:00: MOUTH [place] 00 EVERY 8 Medical (EIGHT) Branch HOURS NEEDED (MUSCLE PAIN OR SPASM). TIZANIDINE 2020-0 Yes [id number] 4mg TAKE 1-2 [facility] 4 mg tablet 5-07 TABLETS BY it y of 00:00: MOUTH [place] 00 EVERY 8 Medical (EIGHT) Branch HOURS NEEDED (MUSCLE PAIN OR SPASM). TIZANIDINE 2020-0 Yes [id number] 4mg TAKE 1-2 [facility] 4 mg tablet 5-07 TABLETS BY it y of 00:00: MOUTH [place] 00 EVERY 8 Medical (EIGHT) Branch HOURS NEEDED (MUSCLE PAIN OR SPASM). TIZANIDINE 2020-0 Yes [id number] 4mg TAKE 1-2 [facility] 4 mg tablet 5-07 TABLETS BY it y of 00:00: MOUTH [place] 00 EVERY 8 Medical (EIGHT) Branch HOURS NEEDED (MUSCLE PAIN OR SPASM). TIZANIDINE 2020-0 Yes [id number] 4mg TAKE 1-2 [facility] 4 mg tablet 5-07 TABLETS BY it y of 00:00: MOUTH [place] 00 EVERY 8 Medical (EIGHT) Branch HOURS NEEDED (MUSCLE PAIN OR SPASM). TIZANIDINE 2020-0 Yes [id number] 4mg TAKE 1-2 [facility] 4 mg tablet 5-07 TABLETS BY it y of 00:00: MOUTH [place] 00 EVERY 8 Medical (EIGHT) Branch HOURS NEEDED (MUSCLE PAIN OR SPASM). TIZANIDINE 2020-0 Yes [id number] 4mg TAKE 1-2 [facility] 4 mg tablet 5-07 TABLETS BY it y of 00:00: MOUTH [place] 00 EVERY 8 Medical (EIGHT) Branch HOURS NEEDED (MUSCLE PAIN OR SPASM). TIZANIDINE 2020-0 Yes [id number] 4mg TAKE 1-2 [facility] 4 mg tablet 5-07 TABLETS BY it y of 00:00: MOUTH [place] 00 EVERY 8 Medical (EIGHT) Branch HOURS NEEDED (MUSCLE PAIN OR SPASM). TIZANIDINE 2020-0 Yes [id number] 4mg TAKE 1-2 [facility] 4 mg tablet 5-07 TABLETS BY it y of 00:00: MOUTH [place] 00 EVERY 8 Medical (EIGHT) Branch HOURS NEEDED (MUSCLE PAIN OR SPASM). TIZANIDINE 2020-0 Yes [id number] 4mg TAKE 1-2 [facility] 4 mg tablet 5-07 TABLETS BY it y of 00:00: MOUTH [place] 00 EVERY 8 Medical (EIGHT) Branch HOURS NEEDED (MUSCLE PAIN OR SPASM). TIZANIDINE 2020-0 Yes [id number] 4mg TAKE 1-2 [facility] 4 mg tablet 5-07 TABLETS BY it y of 00:00: MOUTH [place] 00 EVERY 8 Medical (EIGHT) Branch HOURS NEEDED (MUSCLE PAIN OR SPASM). TIZANIDINE 2020-0 Yes [id number] 4mg TAKE 1-2 [facility] 4 mg tablet 5-07 TABLETS BY it y of 00:00: MOUTH [place] 00 EVERY 8 Medical (EIGHT) Branch HOURS NEEDED (MUSCLE PAIN OR SPASM). TIZANIDINE 2020-0 Yes [id number] 4mg TAKE 1-2 [facility] 4 mg tablet 5-07 TABLETS BY it y of 00:00: MOUTH [place] 00 EVERY 8 Medical (EIGHT) Branch HOURS NEEDED (MUSCLE PAIN OR SPASM). TIZANIDINE 2020-0 Yes [id number] 4mg TAKE 1-2 [facility] 4 mg tablet 5-07 TABLETS BY it y of 00:00: MOUTH [place] 00 EVERY 8 Medical (EIGHT) Branch HOURS NEEDED (MUSCLE PAIN OR SPASM). TIZANIDINE 2020-0 Yes [id number] 4mg TAKE 1-2 [facility] 4 mg tablet 5-07 TABLETS BY it y of 00:00: MOUTH [place] 00 EVERY 8 Medical (EIGHT) Branch HOURS NEEDED (MUSCLE PAIN OR SPASM). TIZANIDINE 2020-0 Yes [id number] 4mg TAKE 1-2 [facility] 4 mg tablet 5-07 TABLETS BY it y of 00:00: MOUTH [place] 00 EVERY 8 Medical (EIGHT) Branch HOURS NEEDED (MUSCLE PAIN OR SPASM). TIZANIDINE 2020-0 Yes [id number] 4mg TAKE 1-2 [facility] 4 mg tablet 5-07 TABLETS BY it y of 00:00: MOUTH [place] 00 EVERY 8 Medical (EIGHT) Branch HOURS NEEDED (MUSCLE PAIN OR SPASM). TIZANIDINE 2020-0 Yes [id number] 4mg TAKE 1-2 [facility] 4 mg tablet 5-07 TABLETS BY it y of 00:00: MOUTH [place] 00 EVERY 8 Medical (EIGHT) Branch HOURS NEEDED (MUSCLE PAIN OR SPASM). TIZANIDINE 2020-0 Yes [id number] 4mg TAKE 1-2 [facility] 4 mg tablet 5-07 TABLETS BY it y of 00:00: MOUTH [place] 00 EVERY 8 Medical (EIGHT) Branch HOURS NEEDED (MUSCLE PAIN OR SPASM). TIZANIDINE 2020-0 Yes [id number] 4mg TAKE 1-2 [facility] 4 mg tablet 5-07 TABLETS BY it y of 00:00: MOUTH [place] 00 EVERY 8 Medical (EIGHT) Branch HOURS NEEDED (MUSCLE PAIN OR SPASM). TIZANIDINE 2020-0 Yes [id number] 4mg TAKE 1-2 [facility] 4 mg tablet 5-07 TABLETS BY it y of 00:00: MOUTH [place] 00 EVERY 8 Medical (EIGHT) Branch HOURS NEEDED (MUSCLE PAIN OR SPASM). TIZANIDINE 2020-0 Yes [id number] 4mg TAKE 1-2 [facility] 4 mg tablet 5-07 TABLETS BY it y of 00:00: MOUTH [place] 00 EVERY 8 Medical (EIGHT) Branch HOURS NEEDED (MUSCLE PAIN OR SPASM). TIZANIDINE 2020-0 Yes [id number] 4mg TAKE 1-2 [facility] 4 mg tablet 5-07 TABLETS BY it y of 00:00: MOUTH [place] 00 EVERY 8 Medical (EIGHT) Branch HOURS NEEDED (MUSCLE PAIN OR SPASM). TIZANIDINE 2020-0 Yes [id number] 4mg TAKE 1-2 [facility] 4 mg tablet 5-07 TABLETS BY it y of 00:00: MOUTH [place] 00 EVERY 8 Medical (EIGHT) Branch HOURS NEEDED (MUSCLE PAIN OR SPASM). TIZANIDINE 2020-0 Yes [id number] 4mg TAKE 1-2 [facility] 4 mg tablet 5-07 TABLETS BY it y of 00:00: MOUTH [place] 00 EVERY 8 Medical (EIGHT) Branch HOURS NEEDED (MUSCLE PAIN OR SPASM). TIZANIDINE 2020-0 Yes [id number] 4mg TAKE 1-2 [facility] 4 mg tablet 5-07 TABLETS BY it y of 00:00: MOUTH [place] 00 EVERY 8 Medical (EIGHT) Branch HOURS NEEDED (MUSCLE PAIN OR SPASM). TIZANIDINE 2020-0 Yes [id number] 4mg TAKE 1-2 [facility] 4 mg tablet 5-07 TABLETS BY it y of 00:00: MOUTH [place] 00 EVERY 8 Medical (EIGHT) Branch HOURS NEEDED (MUSCLE PAIN OR SPASM). TIZANIDINE 2020-0 Yes [id number] 4mg TAKE 1-2 [facility] 4 mg tablet 5-07 TABLETS BY it y of 00:00: MOUTH [place] 00 EVERY 8 Medical (EIGHT) Branch HOURS NEEDED (MUSCLE PAIN OR SPASM). TIZANIDINE 2020-0 Yes [id number] 4mg TAKE 1-2 [facility] 4 mg tablet 5-07 TABLETS BY it y of 00:00: MOUTH [place] 00 EVERY 8 Medical (EIGHT) Branch HOURS NEEDED (MUSCLE PAIN OR SPASM). TIZANIDINE 2020-0 2020- No [id number] 4mg TAKE 1-2 [facility] 4 mg tablet 5-07 12-07 TABLETS BY i ty of 00:00: 00:00 MOUTH [place] 00 :00 EVERY 8 Medical (EIGHT) Branch HOURS NEEDED (MUSCLE PAIN OR SPASM). TIZANIDINE 2020-0 2020- No [id number] 4mg TAKE 1-2 [facility] 4 mg tablet 5-07 12-07 TABLETS BY i ty of 00:00: 00:00 MOUTH [place] 00 :00 EVERY 8 Medical (EIGHT) Branch HOURS NEEDED (MUSCLE PAIN OR SPASM). levothyroxi 2020-0 Yes [id number] 50ug Take 1 [facility] ne 50 mcg 4-20 tablet by ity o f tablet 00:00: mouth [place] 00 every Medical morning. Branch levothyroxi 2020-0 Yes [id number] 50ug Take 1 [facility] ne 50 mcg 4-20 tablet by ity o f tablet 00:00: mouth [place] 00 every Medical morning. Branch levothyroxi 2020-0 Yes [id number] 50ug Take 1 [facility] 50 mcg 4-20 tablet by [facility] o f tablet 00:00: mouth [place] 00 every Medical morning. Branch levothyroxi 2020-0 Yes [id number] 50ug Take 1 [facility] 50 mcg 4-20 tablet by [facility] o f tablet 00:00: mouth [place] 00 every Medical morning. Branch levothyroxi 2020-0 Yes [id number] 50ug Take 1 [facility] 50 mcg 4-20 tablet by ity o f tablet 00:00: mouth [place] 00 every Medical morning. Branch levothyroxi 2020-0 Yes [id number] 50ug Take 1 [facility] 50 mcg 4-20 tablet by [facility]y o f tablet 00:00: mouth [place] 00 every Medical morning. Branch levothyroxi 2020-0 Yes [id number] 50ug Take 1 [facility] ne 50 mcg 4-20 tablet by ity o f tablet 00:00: mouth [place] 00 every Medical morning. Branch levothyroxi 2020-0 Yes [id number] 50ug Take 1 [facility] 50 mcg 4-20 tablet by [facility] o f tablet 00:00: mouth [place] 00 every Medical morning. Branch levothyroxi 2020-0 Yes [id number] 50ug Take 1 [facility] 50 mcg 4-20 tablet by [facility] o f tablet 00:00: mouth [place] 00 every Medical morning. Branch levothyroxi 2020-0 Yes [id number] 50ug Take 1 [facility] 50 mcg 4-20 tablet by [facility] o f tablet 00:00: mouth [place] 00 every Medical morning. Branch levothyroxi 2020-0 Yes [id number] 50ug Take 1 [facility] 50 mcg 4-20 tablet by [facility] o f tablet 00:00: mouth [place] 00 every Medical morning. Branch levothyroxi 2020-0 Yes [id number] 50ug Take 1 [facility] 50 mcg 4-20 tablet by [facility] o f tablet 00:00: mouth [place] 00 every Medical morning. Branch levothyroxi 2020-0 Yes [id number] 50ug Take 1 [facility] 50 mcg 4-20 tablet by [facility] o f tablet 00:00: mouth [place] 00 every Medical morning. Branch levothyroxi 2020-0 Yes [id number] 50ug Take 1 [facility] 50 mcg 4-20 tablet by [facility] o f tablet 00:00: mouth [place] 00 every Medical morning. Branch levothyroxi 2020-0 Yes [id number] 50ug Take 1 [facility] 50 mcg 4-20 tablet by [facility] o f tablet 00:00: mouth [place] 00 every Medical morning. Branch levothyroxi 2020-0 Yes [id number] 50ug Take 1 [facility] 50 mcg 4-20 tablet by [facility] o f tablet 00:00: mouth [place] 00 every Medical morning. Branch levothyroxi 2020-0 Yes [id number] 50ug Take 1 [facility] 50 mcg 4-20 tablet by [facility] o f tablet 00:00: mouth [place] 00 every Medical morning. Branch levothyroxi 2020-0 Yes [id number] 50ug Take 1 [facility] 50 mcg 4-20 tablet by it[facility] o f tablet 00:00: mouth [place] 00 every Medical morning. Branch levothyroxi 2020-0 Yes [id number] 50ug Take 1 [facility] 50 mcg 4-20 tablet by [facility] o f tablet 00:00: mouth [place] 00 every Medical morning. Branch levothyroxi 2020-0 Yes [id number] 50ug Take 1 [facility] 50 mcg 4-20 tablet by [facility] o f tablet 00:00: mouth [place] 00 every Medical morning. Branch levothyroxi 2020-0 Yes [id number] 50ug Take 1 [facility] 50 mcg 4-20 tablet by [facility] o f tablet 00:00: mouth [place] 00 every Medical morning. Branch levothyroxi 2020-0 Yes [id number] 50ug Take 1 [facility] 50 mcg 4-20 tablet by [facility] o f tablet 00:00: mouth [place] 00 every Medical morning. Branch levothyroxi 2020-0 Yes [id number] 50ug Take 1 [facility] 50 mcg 4-20 tablet by it[facility] o f tablet 00:00: mouth [place] 00 every Medical morning. Branch levothyroxi 2020-0 Yes [id number] 50ug Take 1 [facility] 50 mcg 4-20 tablet by it[facility] o f tablet 00:00: mouth [place] 00 every Medical morning. Branch levothyroxi 2020-0 Yes [id number] 50ug Take 1 [facility] 50 mcg 4-20 tablet by it[facility] o f tablet 00:00: mouth [place] 00 every Medical morning. Branch levothyroxi 2020-0 Yes [id number] 50ug Take 1 [facility] 50 mcg 4-20 tablet by [facility] o f tablet 00:00: mouth [place] 00 every Medical morning. Branch levothyroxi 2020-0 Yes [id number] 50ug Take 1 [facility] 50 mcg 4-20 tablet by it[facility] o f tablet 00:00: mouth [place] 00 every Medical morning. Branch levothyroxi 2020-0 Yes [id number] 50ug Take 1 [facility] 50 mcg 4-20 tablet by it[facility] o f tablet 00:00: mouth [place] 00 every Medical morning. Branch levothyroxi 2020-0 Yes [id number] 50ug Take 1 [facility] 50 mcg 4-20 tablet by it[facility] o f tablet 00:00: mouth [place] 00 every Medical morning. Branch levothyroxi 2020-0 Yes [id number] 50ug Take 1 [facility] 50 mcg 4-20 tablet by ity o f tablet 00:00: mouth [place] 00 every Medical morning. Branch levothyroxi 2020-0 Yes [id number] 50ug Take 1 [facility] 50 mcg 4-20 tablet by ity o f tablet 00:00: mouth [place] 00 every Medical morning. Branch levothyroxi 2020-0 Yes [id number] 50ug Take 1 [facility] 50 mcg 4-20 tablet by ity o f tablet 00:00: mouth [place] 00 every Medical morning. Branch levothyroxi 2020-0 Yes [id number] 50ug Take 1 [facility] 50 mcg 4-20 tablet by it[facility] o f tablet 00:00: mouth [place] 00 every Medical morning. Branch levothyroxi 2020-0 Yes [id number] 50ug Take 1 [facility] 50 mcg 4-20 tablet by ity o f tablet 00:00: mouth [place] 00 every Medical morning. Branch levothyroxi 2020-0 Yes [id number] 50ug Take 1 [facility] 50 mcg 4-20 tablet by ity o f tablet 00:00: mouth [place] 00 every Medical morning. Branch levothyroxi 2020-0 Yes [id number] 50ug Take 1 [facility] 50 mcg 4-20 tablet by ity o f tablet 00:00: mouth [place] 00 every Medical morning. Branch levothyroxi 2020-0 Yes [id number] 50ug Take 1 [facility] ne 50 mcg 4-20 tablet by ity o f tablet 00:00: mouth [place] 00 every Medical morning. Branch levothyroxi 2020-0 Yes [id number] 50ug Take 1 [facility] ne 50 mcg 4-20 tablet by ity o f tablet 00:00: mouth [place] 00 every Medical morning. Branch levothyroxi 2020-0 Yes [id number] 50ug Take 1 [facility] ne 50 mcg 4-20 tablet by ity o f tablet 00:00: mouth [place] 00 every Medical morning. Branch levothyroxi 2020-0 Yes [id number] 50ug Take 1 [facility] ne 50 mcg 4-20 tablet by ity o f tablet 00:00: mouth [place] 00 every Medical morning. Branch levothyroxi 2020-0 Yes [id number] 50ug Take 1 [facility] ne 50 mcg 4-20 tablet by ity o f tablet 00:00: mouth [place] 00 every Medical morning. Branch levothyroxi 2020-0 Yes [id number] 50ug Take 1 [facility] ne 50 mcg 4-20 tablet by ity o f tablet 00:00: mouth [place] 00 every Medical morning. Branch levothyroxi 2020-0 2020- No [id number] 50ug Take 1 [facility] ne 50 mcg 4-20 10-23 tablet by ity of tablet 00:00: 00:00 mouth [place] 00 :00 every Medical morning. [facility] rivaroxaban 2020-0 Yes [id number] 20mg Take 1 [facility] ers (XARELTO) 4-14 tablet by ity o f 20 mg 00:00: mouth [place] tablet 00 daily. Medical STOP [facility] ELIQUIS. Indication s: a clot in the [...] mg 00:00: mouth [place] tablet 00 daily. [facility] STOP [place] ELIQUIS. Indication s: a clot in the lung rivaroxaban 2020-0 Yes 1291 20mg Take 1 [facility] (XARELTO) 4-14 tablet by ity o f 20 mg 00:00: mouth [place] tablet 00 daily. [facility] STOP [facility] ELIQUIS. Indication s: a clot in the lung rivaroxaban 2020-0 Yes 1291 20mg Take 1 [facility] ers (XARELTO) 4-14 tablet by ity o f 20 mg 00:00: mouth [place] tablet 00 daily. [facility] STOP [facility] ELIQUIS. Indication s: a clot in the lung rivaroxaban 2020-0 Yes 1291 20mg Take 1 [facility] (XARELTO) 4-14 tablet by ity o f 20 mg 00:00: mouth [place] tablet 00 daily. [facility] STOP [facility] ELIQUIS. Indication s: a clot in the lung rivaroxaban 2020-0 Yes 1291 20mg Take 1 [facility] (XARELTO) 4-14 tablet by ity o f 20 mg 00:00: mouth [place] tablet 00 daily. [facility] STOP [facility] ELIQUIS. Indication s: a clot in the [...] mg 00:00: mouth [place] tablet 00 daily. [facility] STOP [facility] ELIQUIS. Indication s: a clot in the lung rivaroxaban 2020-0 Yes 1291 20mg Take 1 [facility] ers (XARELTO) 4-14 tablet by ity o f 20 mg 00:00: mouth [place] tablet 00 daily. [facility] STOP Branch ELIQUIS. Indication s: a clot [...] mouth [place] tablet 00 daily. Medical STOP [facility] ELIQUIS. Indication s: a clot in the lung rivaroxaban 2020-0 Yes 1291 20mg Take 1 [facility] ers (XARELTO) 4-14 tablet by ity o f 20 mg 00:00: mouth [place] tablet 00 daily. Medical STOP [facility] ELIQUIS. Indication s: a clot in the lung rivaroxaban 2020-0 Yes 1291 20mg Take 1 [facility] ers (XARELTO) 4-14 tablet by ity o f 20 mg 00:00: mouth [place] tablet 00 daily. [facility] STOP [facility] ELIQUIS. Indication s: a clot in the [...] mouth [place] tablet 00 daily. Medical STOP [facility] ELIQUIS. Indication s: a clot in the [...] mouth [place] tablet 00 daily. Medical STOP [facility] ELIQUIS. Indication s: a clot in the lung rivaroxaban 2020-0 Yes 1291 20mg Take 1 [facility] (XARELTO) 4-14 tablet by ity o f 20 mg 00:00: mouth [place] tablet 00 daily. Medical STOP [facility] ELIQUIS. Indication s: a clot in the lung rivaroxaban 2020-0 Yes 1291 20mg Take 1 [facility] (XARELTO) 4-14 tablet by ity o f 20 mg 00:00: mouth [place] tablet 00 daily. Medical STOP [facility] ELIQUIS. Indication s: a clot in the lung rivaroxaban 2020-0 Yes 1291 20mg Take 1 [facility] (XARELTO) 4-14 tablet by ity o f 20 mg 00:00: mouth [place] tablet 00 daily. Medical STOP [facility] ELIQUIS. Indication s: a clot in the lung rivaroxaban 2020-0 Yes 1291 20mg Take 1 [facility] (XARELTO) 4-14 tablet by ity o f 20 mg 00:00: mouth [place] tablet 00 daily. [facility] STOP [facility] ELIQUIS. Indication s: a clot in the lung rivaroxaban 2020-0 Yes 1291 20mg Take 1 [facility] ers (XARELTO) 4-14 tablet by ity o f 20 mg 00:00: mouth [place] tablet 00 daily. [facility] STOP [facility] ELIQUIS. Indication s: a clot in the lung rivaroxaban 2020-0 Yes 1291 20mg Take 1 [facility] (XARELTO) 4-14 tablet by ity o f 20 mg 00:00: mouth [place] tablet 00 daily. [facility] STOP [facility] ELIQUIS. Indication s: a clot in the lung rivaroxaban 2020-0 Yes 1291 20mg Take 1 [facility] (XARELTO) 4-14 tablet by ity o f 20 mg 00:00: mouth [place] tablet 00 daily. Medical STOP [facility] ELIQUIS. Indication s: a clot in the lung rivaroxaban 2020-0 Yes 1291 20mg Take 1 [facility] (XARELTO) 4-14 tablet by ity o f 20 mg 00:00: mouth [place] tablet 00 daily. Medical STOP [facility] ELIQUIS. Indication s: a clot in the [...] clot in the lung TRAZODONE 2020-0 Yes [id number] 100mg TAKE 1 [facility] 100 mg 4-06 TABLET BY ity of tablet 00:00: MOUTH AT [place] 00 BEDTIME. Medical FOR Branch INSOMNIA. TRAZODONE 2020-0 Yes [id number] 100mg TAKE 1 [facility] 100 mg 4-06 TABLET BY ity of tablet 00:00: MOUTH AT [place] 00 BEDTIME. Medical FOR Branch INSOMNIA. TRAZODONE 2020-0 Yes [id number] 100mg TAKE 1 [facility] 100 mg 4-06 TABLET BY ity of tablet 00:00: MOUTH AT [place] 00 BEDTIME. Medical FOR Branch INSOMNIA. TRAZODONE 2020-0 Yes [id number] 100mg TAKE 1 [facility] 100 mg 4-06 TABLET BY ity of tablet 00:00: MOUTH AT [place] 00 BEDTIME. Medical FOR Branch INSOMNIA. TRAZODONE 2020-0 Yes [id number] 100mg TAKE 1 [facility] 100 mg 4-06 TABLET BY ity of tablet 00:00: MOUTH AT [place] 00 BEDTIME. Medical FOR Branch INSOMNIA. TRAZODONE 2020-0 Yes [id number] 100mg TAKE 1 [facility] 100 mg 4-06 TABLET BY ity of tablet 00:00: MOUTH AT [place] 00 BEDTIME. Medical FOR Branch INSOMNIA. TRAZODONE 2020-0 Yes [id number] 100mg TAKE 1 [facility] 100 mg 4-06 TABLET BY ity of tablet 00:00: MOUTH AT [place] 00 BEDTIME. Medical FOR Branch INSOMNIA. TRAZODONE 2020-0 Yes [id number] 100mg TAKE 1 [facility] 100 mg 4-06 TABLET BY ity of tablet 00:00: MOUTH AT [place] 00 BEDTIME. Medical FOR Branch INSOMNIA. TRAZODONE 2020-0 Yes [id number] 100mg TAKE 1 [facility] 100 mg 4-06 TABLET BY ity of tablet 00:00: MOUTH AT [place] [address] BEDTIME. Medical FOR Branch INSOMNIA. TRAZODONE 2020-0 Yes [id number] 100mg TAKE 1 [facility] 100 mg 4-06 TABLET BY ity of tablet 00:00: MOUTH AT [place] [address] BEDTIME. Medical FOR Branch INSOMNIA. TRAZODONE 2020-0 Yes [id number] 100mg TAKE 1 [facility] 100 mg 4-06 TABLET BY ity of tablet 00:00: MOUTH AT [place] [address] BEDTIME. Medical FOR Branch INSOMNIA. TRAZODONE 2020-0 Yes [id number] 100mg TAKE 1 [facility] 100 mg 4-06 TABLET BY ity of tablet 00:00: MOUTH AT [place] [address] BEDTIME. Medical FOR Branch INSOMNIA. TRAZODONE 2020-0 Yes [id number] 100mg TAKE 1 [facility] 100 mg 4-06 TABLET BY ity of tablet 00:00: MOUTH AT [place] [address] BEDTIME. Medical FOR Branch INSOMNIA. TRAZODONE 2020-0 Yes [id number] 100mg TAKE 1 [facility] 100 mg 4-06 TABLET BY ity of tablet 00:00: MOUTH AT [place] [address] BEDTIME. Medical FOR Branch INSOMNIA. TRAZODONE 2020-0 Yes [id number] 100mg TAKE 1 [facility] 100 mg 4-06 TABLET BY ity of tablet 00:00: MOUTH AT [place] 00 BEDTIME. Medical FOR Branch INSOMNIA. TRAZODONE 2020-0 Yes [id number] 100mg TAKE 1 [facility] 100 mg 4-06 TABLET BY ity of tablet 00:00: MOUTH AT [place] 00 BEDTIME. Medical FOR [facility] INSOMNIA. TRAZODONE 2020-0 Yes [id number] 100mg TAKE 1 [facility] 100 mg 4-06 TABLET BY ity of tablet 00:00: MOUTH AT [place] 00 BEDTIME. Medical FOR [facility] INSOMNIA. TRAZODONE 2020-0 2020- No [id number] 100mg TAKE 1 [facility] 100 mg 4-06 08-24 TABLET BY ity of tablet 00:00: 00:00 MOUTH AT [place] 00 :00 BEDTIME. Medical FOR [facility] INSOMNIA. TRAZODONE 2020-0 2020- No [id number] 100mg TAKE 1 [facility] 100 mg 4-06 08-24 TABLET BY ity of tablet 00:00: 00:00 MOUTH AT [place] 00 :00 BEDTIME. Medical FOR [facility] INSOMNIA. TRAZODONE 2020-0 2020- No [id number] 100mg TAKE 1 [facility] 100 mg 4-06 08-24 TABLET BY ity of tablet 00:00: 00:00 MOUTH AT [place] 00 :00 BEDTIME. Medical FOR [facility] INSOMNIA. levothyroxi 2020-0 Yes 37.5ug 37.5 mcg, [facility] ne 3-25 Oral, ity of (SYNTHROID) 11:00: QAM-0600, [place] tablet 37.5 00 First dose Me dical mcg on Sun [facility] 12/10/19 at 0600, Until Discontinu ed, Routine apixaban 2020-0 Yes 10mg 10 mg, [facility] (ELIQUIS) 3-25 Oral, BID, ity of tablet 10 01:00: First dose [place] mg 00 on Sun [facility] 12/09/19 at Branch 1999, Until Discontinu ed, Routine alcaftadine 2020-[address] in [facility] (LASTACAFT) 3-25 each eye. ity of 0.25 % Drop 00:58: [place] 08 [facility] CYCLOSPORIN 2020-[address] in [facility] E (RESTASIS 3-25 each eye. ity of OPHTHALMIC) 00:58: [place] 08 [facility] Branch ASCORBATE 2020-[address] [facility] ers CALCIUM 3-25 mouth. ity of (VITAMIN C 00:58: [place] ORAL) 08 [facility] DOCOSAHEXAN 2020-0 Yes Take by [place] OIC 3-25 mouth. ity of ACID/EPA [...] 3-25 mouth. ity of ITAMIN D3 00:58: [place] (VITAMIN 08 Medical D-3 ORAL) Branch oxyCODONE-a [...] 3-25 mouth. ity of ITAMIN D3 00:58: [place] (VITAMIN 08 Medical D-3 ORAL) Branch oxyCODONE-a [...] Medical Branch CALCIUM 2020-[address] [facility] CARBON[facility]/V 3-25 mouth. ity of ITAMIN [...] Medical Branch Magnesium 2020-[address] [facility] ers 250 mg Tab 3-25 mouth. ity of 00:58: 08 Medical Branch vitamin B-6 2020-0 Yes 100mg Take 100 U [facility] (VITAMIN 3-25 mg by ity of B-6) 100 mg 00:58: mouth [place] tablet 08 daily. Medical Branch CALCIUM 2020-[address] [facility] CARBON[facility]/V 3-25 mouth. ity of ITAMIN [...] Medical Branch ASCORBATE 2020-[address] [facility] ers CALCIUM 3-25 mouth. ity of (VITAMIN [...] Medical Branch Magnesium 2020-[address] [facility] ers 250 mg Tab 3-25 mouth. ity of 00:58: [place] 08 Medical Branch vitamin B-6 2020-0 Yes 100mg Take 100 U nivers (VITAMIN 3-25 mg by ity of B-6) 100 mg 00:58: mouth [place] tablet 08 daily. Medical Branch CALCIUM 2020-[address] [facility] CARBON[facility]/V 3-25 mouth. ity of ITAMIN [...] Medical Branch CALCIUM 2020-[address] [facility] CARBONATE/V 3-25 mouth. ity of ITAMIN [...] OIC 3-25 mouth. ity of ACID/EPA 00:58: [place] (FISH OIL 08 Medical ORAL) Branch vitamin [...] 3-25 mouth. ity of ITAMIN D3 00:58: [place] (VITAMIN 08 Medical D-3 ORAL) Branch alcaftadine [...] Branch daily as needed for Pain. levothyroxi 2020-0 2020- No [id number] 50ug Take 1 [facility] ne 50 mcg 3-25 04-25 tablet by ity of tablet 00:00: 04:59 mouth [place] 00 :00 every Medical morning Branch for 30 days. levothyroxi 2020-0 2020- No [id number] 50ug Take 1 [facility] ne 50 mcg 3-25 04-25 tablet by ity of tablet 00:00: 04:59 mouth [place] 00 :00 every Medical morning Branch for 30 days. levothyroxi 2020-0 2020- No [id number] 50ug Take 1 [facility] ne 50 mcg 3-25 04-25 tablet by ity of tablet 00:00: 04:59 mouth [place] 00 :00 every Medical morning Branch for 30 days. levothyroxi 2020-0 2020- No [id number] 50ug Take 1 [facility] ne 50 mcg 3-25 04-25 tablet by ity of tablet 00:00: 04:59 mouth [place] 00 :00 every Medical morning Branch for 30 days. levothyroxi 2020-0 2020- No [id number] 50ug Take 1 [facility] ne 50 mcg 3-25 04-25 tablet by ity of tablet 00:00: 04:59 mouth [place] 00 :00 every Medical morning Branch for 30 days. levothyroxi 2020-0 2020- No [id number] 50ug Take 1 [facility] ne 50 mcg 3-25 04-25 tablet by ity of tablet 00:00: 04:59 mouth [place] 00 :00 every Medical morning Branch for 30 days. levothyroxi 2020-0 2020- No [id number] 50ug Take 1 [facility] ne 50 mcg 3-25 04-25 tablet by ity of tablet 00:00: 04:59 mouth [place] 00 :00 every Medical morning Branch for 30 days. levothyroxi 2020-0 2020- No [id number] 50ug Take 1 [facility] ne 50 mcg 3-25 04-20 tablet by ity of tablet 00:00: 00:00 mouth [place] 00 :00 every Medical morning Branch for 30 days. METFORMIN 2020-0 Yes [id number] TAKE 1 Un [place] ER 500 mg 3-24 TABLET BY ity o f 24 hr 00:00: MOUTH [place] tablet 00 EVERY DAY Medical WITH Branch BREAKFAST METFORMIN 2020-0 Yes [id number] TAKE 1 Un [place] ER 500 mg 3-24 TABLET BY ity o f 24 hr 00:00: MOUTH [place] tablet 00 EVERY DAY Medical WITH Branch BREAKFAST METFORMIN 2020-0 Yes [id number] TAKE 1 Un [place] [facility] 500 mg 3-24 TABLET BY ity o f 24 hr 00:00: MOUTH [place] tablet 00 EVERY DAY Medical WITH Branch BREAKFAST METFORMIN 2020-0 Yes [id number] TAKE 1 Un [place] [facility] 500 mg 3-24 TABLET BY ity o f 24 hr 00:00: MOUTH [place] tablet 00 EVERY DAY Medical WITH Branch BREAKFAST METFORMIN 2020-0 Yes [id number] TAKE 1 Un [place] [facility] 500 mg 3-24 TABLET BY ity o f 24 hr 00:00: MOUTH [place] tablet 00 EVERY DAY Medical WITH Branch BREAKFAST METFORMIN 2020-0 Yes [id number] TAKE 1 Un [place] [facility] 500 mg 3-24 TABLET BY ity o f 24 hr 00:00: MOUTH [place] tablet 00 EVERY DAY Medical WITH Branch BREAKFAST METFORMIN 2020-0 Yes [id number] TAKE 1 Un [place] [facility] 500 mg 3-24 TABLET BY ity o f 24 hr 00:00: MOUTH [place] tablet 00 EVERY DAY Medical WITH Branch BREAKFAST METFORMIN 2020-0 Yes [id number] TAKE 1 Un [place] [facility] 500 mg 3-24 TABLET BY ity o f 24 hr 00:00: MOUTH [place] tablet 00 EVERY DAY Medical WITH Branch BREAKFAST METFORMIN 2020-0 Yes [id number] TAKE 1 Un [place] [facility] 500 mg 3-24 TABLET BY ity o f 24 hr 00:00: MOUTH [place] tablet 00 EVERY DAY Medical WITH Branch BREAKFAST METFORMIN 2020-0 Yes [id number] TAKE 1 Un [place] [facility] 500 mg 3-24 TABLET BY ity o f 24 hr 00:00: MOUTH [place] tablet 00 EVERY DAY Medical WITH Branch BREAKFAST METFORMIN 2020-0 Yes [id number] TAKE 1 Un [place] [facility] 500 mg 3-24 TABLET BY ity o f 24 hr 00:00: MOUTH [place] tablet 00 EVERY DAY Medical WITH Branch BREAKFAST METFORMIN 2020-0 Yes [id number] TAKE 1 Un [place] [facility] 500 mg 3-24 TABLET BY ity o f 24 hr 00:00: MOUTH [place] tablet 00 EVERY DAY Medical WITH Branch BREAKFAST METFORMIN 2020-0 Yes [id number] TAKE 1 Un [place] [facility] 500 mg 3-24 TABLET BY ity o f 24 hr 00:00: MOUTH [place] tablet 00 EVERY DAY Medical WITH Branch BREAKFAST METFORMIN 2020-0 Yes [id number] TAKE 1 Un [place] [facility] 500 mg 3-24 TABLET BY ity o f 24 hr 00:00: MOUTH [place] tablet 00 EVERY DAY Medical WITH Branch BREAKFAST METFORMIN 2020-0 Yes [id number] TAKE 1 Un [place] [facility] 500 mg 3-24 TABLET BY ity o f 24 hr 00:00: MOUTH [place] tablet 00 EVERY DAY Medical WITH Branch BREAKFAST METFORMIN 2020-0 Yes [id number] TAKE 1 Un [place] [facility] 500 mg 3-24 TABLET BY ity o f 24 hr 00:00: MOUTH [place] tablet 00 EVERY DAY Medical WITH Branch BREAKFAST METFORMIN 2020-0 Yes [id number] TAKE 1 Un [place] 500 mg 3-24 TABLET BY ity o f 24 hr 00:00: MOUTH [place] tablet 00 EVERY DAY Medical WITH Branch BREAKFAST METFORMIN 2020-0 Yes [id number] TAKE 1 Un [place] [facility] 500 mg 3-24 TABLET BY ity o f 24 hr 00:00: MOUTH [place] tablet 00 EVERY DAY Medical WITH Branch BREAKFAST METFORMIN 2020-0 Yes [id number] TAKE 1 Un [place] [facility] 500 mg 3-24 TABLET BY ity o f 24 hr 00:00: MOUTH [place] tablet 00 EVERY DAY Medical WITH Branch BREAKFAST METFORMIN 2020-0 Yes [id number] TAKE 1 Un [place] [facility] 500 mg 3-24 TABLET BY ity o f 24 hr 00:00: MOUTH [place] tablet 00 EVERY DAY Medical WITH Branch BREAKFAST METFORMIN 2020-0 Yes [id number] TAKE 1 Un [place] [facility] 500 mg 3-24 TABLET BY ity o f 24 hr 00:00: MOUTH [place] tablet 00 EVERY DAY Medical WITH Branch BREAKFAST METFORMIN 2020-0 Yes [id number] TAKE 1 Un [place] [facility] 500 mg 3-24 TABLET BY ity o f 24 hr 00:00: MOUTH [place] tablet 00 EVERY DAY Medical WITH Branch BREAKFAST METFORMIN 2020-0 Yes [id number] TAKE 1 Un [place] [facility] 500 mg 3-24 TABLET BY ity o f 24 hr 00:00: MOUTH [place] tablet 00 EVERY DAY Medical WITH Branch BREAKFAST METFORMIN 2020-0 Yes [id number] TAKE 1 Un [place] [facility] 500 mg 3-24 TABLET BY ity o f 24 hr 00:00: MOUTH [place] tablet 00 EVERY DAY Medical WITH Branch BREAKFAST METFORMIN 2020-0 Yes [id number] TAKE 1 Un [place] ER 500 mg 3-24 TABLET BY ity o f 24 hr 00:00: MOUTH [place] tablet 00 EVERY DAY Medical WITH Branch BREAKFAST METFORMIN 2020-0 Yes [id number] TAKE 1 Un [place] [facility] 500 mg 3-24 TABLET BY ity o f 24 hr 00:00: MOUTH [place] tablet 00 EVERY DAY Medical WITH Branch BREAKFAST METFORMIN 2020-0 Yes [id number] TAKE 1 Un [place] [facility] 500 mg 3-24 TABLET BY ity o f 24 hr 00:00: MOUTH [place] tablet 00 EVERY DAY Medical WITH Branch BREAKFAST METFORMIN 2020-0 Yes [id number] TAKE 1 [facility] [place] [facility] 500 mg 3-24 TABLET BY ity o f 24 hr 00:00: MOUTH [place] tablet 00 EVERY DAY Medical WITH Branch BREAKFAST METFORMIN 2020-0 Yes [id number] TAKE 1 [facility] [place] ER 500 mg 3-24 TABLET BY ity o f 24 hr 00:00: MOUTH [place] tablet 00 EVERY DAY Medical WITH Branch BREAKFAST METFORMIN 2020-0 Yes [id number] TAKE 1 Un [place] ER 500 mg 3-24 TABLET BY ity o f 24 hr 00:00: MOUTH [place] tablet 00 EVERY DAY Medical WITH Branch BREAKFAST METFORMIN 2020-0 Yes [id number] TAKE 1 Un [place] ER 500 mg 3-24 TABLET BY ity o f 24 hr 00:00: MOUTH [place] tablet 00 EVERY DAY Medical WITH Branch BREAKFAST METFORMIN 2020-0 Yes [id number] TAKE 1 Un [place] [facility] 500 mg 3-24 TABLET BY ity o f 24 hr 00:00: MOUTH [place] tablet 00 EVERY DAY Medical WITH Branch BREAKFAST METFORMIN 2020-0 Yes [id number] TAKE 1 [facility] [place] ER 500 mg 3-24 TABLET BY ity o f 24 hr 00:00: MOUTH [place] tablet 00 EVERY DAY Medical WITH Branch BREAKFAST METFORMIN 2020-0 Yes [id number] TAKE 1 Un [place] [facility] 500 mg 3-24 TABLET BY ity o f 24 hr 00:00: MOUTH [place] tablet 00 EVERY DAY Medical WITH Branch BREAKFAST METFORMIN 2020-0 Yes [id number] TAKE 1 Un [place] ER 500 mg 3-24 TABLET BY ity o f 24 hr 00:00: MOUTH [place] tablet 00 EVERY DAY Medical WITH Branch BREAKFAST METFORMIN 2020-0 Yes [id number] TAKE 1 Un [place] [facility] 500 mg 3-24 TABLET BY ity o f 24 hr 00:00: MOUTH [place] tablet 00 EVERY DAY Medical WITH Branch BREAKFAST METFORMIN 2020-0 Yes [id number] TAKE 1 Un [place] [facility] 500 mg 3-24 TABLET BY ity o f 24 hr 00:00: MOUTH [place] tablet 00 EVERY DAY Medical WITH Branch BREAKFAST METFORMIN 2020-0 Yes [id number] TAKE 1 [facility] [place] [facility] 500 mg 3-24 TABLET BY ity o f 24 hr 00:00: MOUTH [place] tablet 00 EVERY DAY Medical WITH Branch BREAKFAST METFORMIN 2020-0 Yes [id number] TAKE 1 Un [place] ER 500 mg 3-24 TABLET BY ity o f 24 hr 00:00: MOUTH [place] tablet 00 EVERY DAY Medical WITH Branch BREAKFAST METFORMIN 2020-0 2020- No [id number] TAKE 1 U nivers ER 500 mg 3-24 10-05 TABLET BY ity of 24 hr 00:00: 00:00 MOUTH [place] tablet 00 :00 EVERY DAY Medical WITH Branch BREAKFAST METFORMIN 2020-0 2020- No [id number] TAKE 1 U [facility]ivers ER 500 mg 3-24 10-05 TABLET BY ity of 24 hr 00:00: 00:00 MOUTH [place] tablet 00 :00 EVERY DAY Medical WITH Branch BREAKFAST apixaban 5 2020-0 2020- No [id number] 5mg Take 1 [facility] ers mg tablet 3-23 tablet by ity of 00:00: 04:59 mouth 2 [place] 00 :00 (two) Medical times Branch daily for 90 days. Then decrease dose to 5 mg bid for 180 days Indication s: treatment to prevent a blood clot in the lung apixaban 5 2020-0 2020- No 1293 5mg Take 1 [facility] ers mg tablet 3-23 tablet by ity of 00:00: 04:59 mouth 2 [place] 00 :00 (two) Medical times Branch daily for 90 days. Then decrease dose to 5 mg bid for 180 days Indication s: treatment to prevent a blood clot in the lung apixaban 5 2020-0 2020- No 1293 5mg Take 1 [facility] ers mg tablet 3-23 tablet by ity of 00:00: 04:59 mouth 2 [place] 00 :00 (two) Medical times Branch daily for 90 days. Then decrease dose to 5 mg bid for 180 days Indication s: treatment to prevent a blood clot in the lung apixaban 5 2019-0 2020- No 1293 5mg Take 1 [facility] ers mg tablet 3-23 tablet by ity of 00:00: 04:59 mouth 2 [place] 00 :00 (two) Medical times Branch daily for 90 days. Then decrease dose to 5 mg bid for 180 days Indication s: treatment to prevent a blood clot in the lung apixaban 5 2020-0 2020- No 1293 5mg Take 1 [facility] ers mg tablet 3-23 tablet by ity of 00:00: 04:59 mouth 2 [place] 00 :00 (two) Medical times Branch daily for 90 days. Then decrease dose to 5 mg bid for 180 days Indication s: treatment to prevent a blood clot in the lung apixaban 5 2020-0 2020- No 1293 5mg Take 1 [facility] ers mg tablet 3-23 tablet by ity of 00:00: 04:59 mouth 2 [place] 00 :00 (two) Medical times Branch daily for 90 days. Then decrease dose to 5 mg bid for 180 days Indication s: treatment to prevent a blood clot in the lung apixaban 5 2020-0 2020- No 1293 5mg Take 1 Univ ers mg tablet 314 tablet by ity of 00:00: 00:00 mouth 2 [place] 00 :00 (two) Medical times Branch daily for 90 days. Then decrease dose to 5 mg bid for 180 days Indication s: treatment to prevent a blood clot in the lung levoFLOXaci 2020-0 2020- No [id number] 500mg Take 1 Univers n 500 mg -08 12-30 tablet by ity o f tablet 00:00: 04:59 mouth [place] 00 :00 every 24 Medical (twenty-fo [facility] ur) hours for 5 days. levoFLOXaci 2020-0 2020- No [id number] 500mg Take 1 Univers n 500 mg -08 12-30 tablet by ity o f tablet 00:00: 04:59 mouth [place] 00 :00 every 24 Medical (twenty-fo [facility] ur) hours for 5 days. levoFLOXaci 2020-0 2020- No [id number] 500mg Take 1 Univers n 500 mg 12-08-30 tablet by ity o f tablet 00:00: 04:59 mouth [place] 00 :00 every 24 Medical (- [facility] ur) hours for 5 days. levoFLOXaci 2020-0 2020- No [id number] 500mg Take 1 Univers n 500 mg 12-08-30 tablet by ity o f tablet 00:00: 04:59 mouth [place] 00 :00 every 24 Medical (-fo [facility] ur) hours for 5 days. oxyCODONE-a 2020-0 Yes 1{tbl} Take 1 [facility] [place] cetaminophe 3-23 tablet by ity of n 7.5-325 03:06: mouth 2 [place] mg per 26 (two) Medical tablet times [facility] daily as needed for Pain. oxyCODONE-a 2020-0 Yes 1{tbl} 1 tablet, Univers cetaminophe 3-23 Oral, ity of n 03:06: Q6HPRN, [place] (PERCOCET) 13 Starting Medic al 5-325 mg [place] [facility] per tablet 12/07/19 at 1 tablet 2206, Until Discontinu ed, Pain (scale 7-10) traZODone 2020-0 Yes 100mg 100 mg, Univ ers (DESYREL) 3-23 Oral, QHS, ity of tablet 100 02:00: First dose [place] mg 00 on [place] [facility] 12/07/19 at Branch 2100, Until Discontinu ed, Routine levoFLOXaci 2020-0 Yes 750mg 750 mg, IV Univers n in D5W 12-06 Piggyback, ity o f (LEVAQUIN) 18:45: Q24H ABX, [place] 750 mg/150 00 First dose Med ical mL on [place] [facility] Piggyback 12/07/19 at 750 mg 1345, Until Discontinu ed, 150 mL
R lan for Anti-Infec tive: Empiric Therapy for Suspected Infection< br>Empiric Therapy Site: Urine
D uration of therapy: 7 days heparin 2020-0 2020- No 1300U/h at 13 Unive rs 25,000 12-06 03-24 mL/hr, ity of unit/250 mL 15:00: 22:04 1,300 [place] (Prem[place] :19 Units/hr Medica l Bag) in ([address] [place] [id number] 0.45 % NS mL/hr), IV Infusion, CONTINUOUS , Starting [place] 12/07/19 at 1000, Until Sun12/09/19 at 1704, Routine triamterene 2020-0 Yes 1{tbl} 1 tablet, Univers -hydrochlor 12-06 Oral, ity of othiazid 14:00: DAILY, [place] (MAXZIDE-25 00 First dose Me dical ) 37.5-25 on [place] [facility] mg tablet 1 12/07/19 at tablet 0900, Until Discontinu ed, Routine amLODIPine 2020-0 Yes 2.5mg 2.5 mg, Uni vers (NORVASC) 12-06 Oral, ity of tablet 2.5 14:00: DAILY, [place] mg 00 First dose Medical on [facility] 12/07/19 at 0900, Until Discontinu ed, Routine Sliding 2020-0 Yes Subcutaneo Univ ers Scale - us, TID ity of Insulin - 13:00: MEALS+HS, [place] as Aspart 00 First dose Medical (NOVOLOG) + on [place] [facility] Fsbg 12/07/19 at Testing 0800, Until Discontinu ed, Routine omeprazole 2020-0 Yes 40mg 40 mg, Unive rs (PRILOSEC) - Oral, QAM ity of capsule 40 13:00: WITH [place] mg 00 BREAKFAST, Medical First dose Branch on [place] 12/07/19 at 0800, Until Discontinu ed
Facu lty member approving Non-formul familia medication : KELLY MITTAL
R lan for Non-Formul familia Use: PATIENT CURRENTLY TAKING NONFORMULA RY PRODUCT levothyroxi 2020-0 2020- No 25ug 25 mcg, Un [place] ne 12-06 03-24 Oral, ity of (SYNTHROID) 11:00: 19:39 QAM-0600, [place] tablet 25 00 :21 First dose Medi kacey mcg on [place] Branch 12/07/19 at 0600, Until Discontinu ed, Routine glucagon 2020-0 Yes 1mg 1 mg, Univers (GLUCAGEN 12-06 Intramuscu ity of DIAGNOSTIC 10:24: lar, PRN, [place] KIT) 32 Starting Medical injection 1 [facility] mg 12/07/19 at 0524, Until Discontinu ed, BASIL, Blood Glucose < or = 70 mg/dL and patient is unable to swallow or has mental changes. dextrose 50 2020-0 Yes 25mL 25 mL, [facility] ers % in water 12-06 Slow IV ity of (D50W) 10:24: Push, PRN, [place] injection 32 Starting Medica l 25 mL [facility] 12/07/19 at 0524, Until Discontinu ed, BASIL, Blood Glucose < or = 70 mg/dL and patient is unable to swallow or has mental status changes. CYCLOSPORIN 2020-[address] in U nivers E (RESTASIS 12-06 each eye. ity of OPHTHALMIC) 10:23: Medical Branch ASCORBATE 2020-[address] [facility] ers CALCIUM 12-06 mouth. ity of (VITAMIN C 10:23: [place] ORAL) Medical Branch DOCOSAHEXAN 2020-0 Yes Take by [place] OIC 12-06 mouth. ity of ACID/EPA 10:23: [place] (FISH OIL Medical ORAL) Branch vitamin E 2020-0 Yes 1000U Take 1,000 U nivers 1,000 unit 12-06 Units by ity o f capsule 10:23: mouth [place] daily. Medical Branch Magnesium 2020-[address] [facility] ers 250 mg Tab 12-06 mouth. ity of 10:23: Medical Branch vitamin B-6 2020-0 Yes 100mg Take 100 U nivers (VITAMIN 3- mg by ity of B-6) 100 mg 10:23: mouth [place] tablet 27 daily. Medical Branch CALCIUM 2020-0 Yes Take by [facility] s CARBONATE/V 12-06 mouth. ity of ITAMIN D3 10:23: [place] (VITAMIN 27 Medical D-3 ORAL) [facility] albuterol-i 2020-0 Yes 1{puff} 1 Puff, Univers pratropium 12-06 Inhalation ity of (COMBIVENT 10:20: , Q6HPRN, [place] RESPIMAT) 41 Starting Medica l 20-100 [facility] mcg/actuati 12/07/19 at on inhaler 0520, 1 Puff Until Discontinu ed, Routine, Wheezing, Shortness of Breath hydralAZINE 2019-0 Yes 10mg 10 mg, Univ ers (APRESOLINE 12-06 Intravenou it y of ) injection 05:40: s, Q6HPRN, [place] 10 mg 38 Starting [facility] 12/07/19 at 0040, Until Discontinu ed, Routine, Hypertensi on acetaminoph 0 Yes 650mg 650 mg, Un [place] en 12-06 Oral, ity of (TYLENOL) 05:40: Q6HPRN, [place] tablet 650 19 Starting Medic al mg [facility] 12/07/19 at 0040, Until Discontinu ed, Routine, Pain (scale 1-3), Temp > 38.5 C ondansetron 2019-0 Yes 4mg 4 mg, Slow Univers (ZOFRAN 12-06 IV Push, ity of (PF)) 05:22: Q6HPRN, [place] injection 4 26 Starting Medi kacey mg [facility] 12/07/19 at 0022, Until Discontinu ed, Routine, Nausea and Vomiting (N/V) traMADol 0 2020- No 50mg 50 mg, Univer s (ULTRAM) 12-06 03-24 Oral, ity of tablet 50 05:22: 05:21 Q8HPRN, [place] mg 21 :21 Starting [facility] 12/07/19 at 0022, Until 12/09/19 at 0021, Routine, Pain (scale 4-6) alcaftadine 2019-[address] in U nivers (LASTACAFT) 322 each eye. ity of 0.25 % Drop 03:51: [place] 00 [facility] heparin 2020-0 2020- No 1300U/h 1,300 Unive rs 25,000 12-06 03-22 Units/hr ity of unit/250 mL 03:45: 10:06 (13 [place] (Premixed 00 :17 mL/hr), IV Medi kacey Bag) in Infusion, [facility] NaCl 0.45 % CONTINUOUS weight , Starting based Sat dosing 12/06/19 at DVT/PE 2245, protocol Until 12/07/19 at 0506 heparin 2020-0 2020- No 5000U 5,000 Univers 1000 12-06 Units, IV ity of unit/mL 03:45: 03:45 Push, [place] injection 00 :00 ONCE, 1 Medical Soln 5,000 dose, Sat Bran ch Units 12/06/19 at 2245, Routine iohexol 2020-0 2020- No 120mL 120 mL, Unive rs (OMNIPAQUE 12-06 Intravenou it y of 350 02:45: 02:45 s, ONCE, 1 [place] BULK-150 00 :00 dose, Sat Medica l mL) 12/06/19 at Branch injection 2145, 120 mL Routine ipratropium 2020-0 2020- No 3mL 3 mL, Univ ers -albuterol Inhalation it y of (DUONEB) 02:45: 02:46 , ONCE, 1 [place] 0.5 mg-3 00 :00 dose, Fri Medica l mg(2.5 mg 11/14/19 at Bran ch base)/3 mL 2044, BASIL nebulizer solution 3 mL predniSONE 2019-0 2020- No 60mg 60 mg, Univ ers (DELTASONE) Oral, ity of tablet 60 02:15: 01:25 ONCE, 1 [place] mg 00 :00 dose, Fri Medical 11/14/19 at [facility] 2014, BASIL ipratropium 2020-0 2020- No 3mL 3 mL, Univ ers -albuterol Inhalation it y of (DUONEB) 02:15: 01:32 , ONCE, 1 [place] 0.5 mg-3 00 :00 dose, Fri Medica l mg(2.5 mg 11/14/19 at Bran ch base)/3 mL 2014, BASIL nebulizer solution 3 mL azithromyci 2020-0 Yes Univer s n 250 mg ity of tablet 00:00: [address] predniSONE 2020-0 Yes 60mg Take 60 mg U nivers 20 mg 2-29 by mouth ity of tablet 00:00: every [place] 00 morning. Medical Branch cefpodoxime 2020-0 Yes 200mg Take 200 U nivers 200 mg 2-29 mg by ity of tablet 00:00: mouth 2 [place] (two) Medical times Branch daily. azithromyci 2020-0 Yes Univer s n 250 mg 2-29 ity of tablet 00:00: [place] 00 Medical Branch predniSONE 2020-0 Yes 60mg Take 60 mg U nivers 20 mg 2-29 by mouth ity of tablet 00:00: every [place] 00 morning. Medical Branch cefpodoxime 2020-0 Yes 200mg Take 200 U nivers 200 mg 2-29 mg by ity of tablet 00:00: mouth 2 [place] (two) Medical times Branch daily. azithromyci 2020-0 Yes Univer s n 250 mg 2-29 ity of tablet 00:00: [place] 00 Medical Branch predniSONE 2020-0 Yes 60mg Take 60 mg U nivers 20 mg 2-29 by mouth ity of tablet 00:00: every [place] 00 morning. Medical Branch cefpodoxime 2020-0 Yes 200mg Take 200 U nivers 200 mg 2-29 mg by ity of tablet 00:00: mouth 2 [place] (two) Medical times Branch daily. azithromyci 2020-0 Yes Univer s n 250 mg 2-29 ity of tablet 00:00: [place] 00 Medical Branch predniSONE 2020-0 Yes 60mg Take 60 mg U nivers 20 mg 2-29 by mouth ity of tablet 00:00: every [place] 00 morning. Medical Branch cefpodoxime 2020-0 Yes 200mg Take 200 U nivers 200 mg 2-29 mg by ity of tablet 00:00: mouth 2 [place] (two) Medical times Branch daily. azithromyci 2020-0 Yes Univer s n 250 mg 2-29 ity of tablet 00:00: [place] 00 Medical Branch predniSONE 2020-0 Yes 60mg Take 60 mg U nivers 20 mg 2-29 by mouth ity of tablet 00:00: every [place] 00 morning. Medical Branch cefpodoxime 2020-0 Yes 200mg Take 200 U nivers 200 mg 2-29 mg by ity of tablet 00:00: mouth 2 [place] (two) Medical times Branch daily. azithromyci 2020-0 Yes Univer s n 250 mg 2-29 ity of tablet 00:00: [place] 00 Medical Branch predniSONE 2020-0 Yes 60mg Take 60 mg U nivers 20 mg 2-29 by mouth ity of tablet 00:00: every [place] 00 morning. Medical Branch cefpodoxime 2020-0 Yes 200mg Take 200 U nivers 200 mg 2-29 mg by ity of tablet 00:00: mouth 2 [place] (two) Medical times Branch daily. azithromyci 2020-0 Yes Univer s n 250 mg 2-29 ity of tablet 00:00: [place] 00 Medical Branch predniSONE 2020-0 Yes 60mg Take 60 mg U nivers 20 mg 2-29 by mouth ity of tablet 00:00: every [place] 00 morning. Medical Branch cefpodoxime 2020-0 Yes 200mg Take 200 U nivers 200 mg 2-29 mg by ity of tablet 00:00: mouth 2 [place] (two) Medical times Branch daily. azithromyci 2020-0 Yes Univer s n 250 mg 2-29 ity of tablet 00:00: [place] 00 Medical Branch predniSONE 2020-0 Yes 60mg Take 60 mg U nivers 20 mg 2-29 by mouth ity of tablet 00:00: every [place] 00 morning. Medical Branch cefpodoxime 2020-0 Yes 200mg Take 200 U nivers 200 mg 2-29 mg by ity of tablet 00:00: mouth 2 [place] (two) Medical times Branch daily. azithromyci 2020-0 Yes Univer s n 250 mg 2-29 ity of tablet 00:00: [place] 00 Medical Branch predniSONE 2020-0 Yes 60mg Take 60 mg U nivers 20 mg 2-29 by mouth ity of tablet 00:00: every [place] 00 morning. Medical Branch cefpodoxime 2020-0 Yes 200mg Take 200 U nivers 200 mg 2-29 mg by ity of tablet 00:00: mouth 2 [place] (two) Medical times Branch daily. azithromyci 2020-0 Yes Univer s n 250 mg 2-29 ity of tablet 00:00: [place] 00 Medical Branch predniSONE 2020-0 Yes 60mg Take 60 mg U nivers 20 mg 2-29 by mouth ity of tablet 00:00: every [place] 00 morning. Medical Branch cefpodoxime 2020-0 Yes 200mg Take 200 U nivers 200 mg 2-29 mg by ity of tablet 00:00: mouth 2 [place] (two) Medical times Branch daily. azithromyci 2020-0 Yes Univer s n 250 mg 2-29 ity of tablet 00:00: [place] 00 Medical Branch predniSONE 2020-0 Yes 60mg Take 60 mg U nivers 20 mg 2-29 by mouth ity of tablet 00:00: every [place] 00 morning. Medical Branch cefpodoxime 2020-0 Yes 200mg Take 200 U nivers 200 mg 2-29 mg by ity of tablet 00:00: mouth 2 [place] (two) Medical times Branch daily. azithromyci 2020-0 Yes Univer s n 250 mg 2-29 ity of tablet 00:00: [place] 00 Medical Branch predniSONE 2020-0 Yes 60mg Take 60 mg U nivers 20 mg 2-29 by mouth ity of tablet 00:00: every [place] 00 morning. Medical Branch cefpodoxime 2020-0 Yes 200mg Take 200 U nivers 200 mg 2-29 mg by ity of tablet 00:00: mouth 2 [place] (two) Medical times Branch daily. azithromyci 2020-0 Yes Univer s n 250 mg 2-29 ity of tablet 00:00: [place] 00 Medical Branch predniSONE 2020-0 Yes 60mg Take 60 mg U nivers 20 mg 2-29 by mouth ity of tablet 00:00: every [place] 00 morning. Medical Branch cefpodoxime 2020-0 Yes 200mg Take 200 U nivers 200 mg 2-29 mg by ity of tablet 00:00: mouth 2 [place] (two) Medical times Branch daily. azithromyci 2020-0 Yes Univer s n 250 mg 2-29 ity of tablet 00:00: [place] 00 Medical Branch predniSONE 2020-0 Yes 60mg Take 60 mg U nivers 20 mg 2-29 by mouth ity of tablet 00:00: every [place] 00 morning. Medical Branch cefpodoxime 2020-0 Yes 200mg Take 200 U nivers 200 mg 2-29 mg by ity of tablet 00:00: mouth 2 [place] (two) Medical times Branch daily. azithromyci 2020-0 Yes Univer s n 250 mg 2-29 ity of tablet 00:00: [place] 00 Medical Branch predniSONE 2020-0 Yes 60mg Take 60 mg U nivers 20 mg 2-29 by mouth ity of tablet 00:00: every [place] 00 morning. Medical Branch cefpodoxime 2020-0 Yes 200mg Take 200 U nivers 200 mg 2-29 mg by ity of tablet 00:00: mouth 2 [place] (two) Medical times Branch daily. azithromyci 2020-0 Yes Univer s n 250 mg 2-29 ity of tablet 00:00: [place] 00 Medical Branch predniSONE 2020-0 Yes 60mg Take 60 mg U nivers 20 mg 2-29 by mouth ity of tablet 00:00: every [place] 00 morning. Medical Branch cefpodoxime 2020-0 Yes 200mg Take 200 U nivers 200 mg 2-29 mg by ity of tablet 00:00: mouth 2 [place] (two) Medical times Branch daily. azithromyci 2020-0 Yes Univer s n 250 mg 2-29 ity of tablet 00:00: [place] 00 Medical Branch predniSONE 2020-0 Yes 60mg Take 60 mg U nivers 20 mg 2-29 by mouth ity of tablet 00:00: every [place] 00 morning. Medical Branch cefpodoxime 2020-0 Yes 200mg Take 200 U nivers 200 mg 2-29 mg by ity of tablet 00:00: mouth 2 [place] (two) Medical times Branch daily. azithromyci 2020-0 Yes Univer s n 250 mg 2-29 ity of tablet 00:00: [place] 00 Medical Branch predniSONE 2020-0 Yes 60mg Take 60 mg U nivers 20 mg 2-29 by mouth ity of tablet 00:00: every [place] 00 morning. Medical Branch cefpodoxime 2020-0 Yes 200mg Take 200 U nivers 200 mg 2-29 mg by ity of tablet 00:00: mouth 2 [place] (two) Medical times Branch daily. azithromyci 2020-0 Yes Univer s n 250 mg 2-29 ity of tablet 00:00: [place] 00 Medical Branch predniSONE 2020-0 Yes 60mg Take 60 mg U nivers 20 mg 2-29 by mouth ity of tablet 00:00: every [place] 00 morning. Medical Branch cefpodoxime 2020-0 Yes 200mg Take 200 U nivers 200 mg 2-29 mg by ity of tablet 00:00: mouth 2 [place] (two) Medical times Branch daily. azithromyci 2020-0 Yes Univer s n 250 mg 2-29 ity of tablet 00:00: [place] 00 Medical Branch predniSONE 2020-0 Yes 60mg Take 60 mg U nivers 20 mg 2-29 by mouth ity of tablet 00:00: every [place] 00 morning. Medical Branch azithromyci 2020-0 Yes Univer s n 250 mg 2-29 ity of tablet 00:00: [place] 00 Medical Branch predniSONE 2020-0 Yes 60mg Take 60 mg U nivers 20 mg 2-29 by mouth ity of tablet 00:00: every [place] 00 morning. Medical Branch azithromyci 2020-0 Yes Univer s n 250 mg 2-29 ity of tablet 00:00: [place] 00 Medical Branch predniSONE 2020-0 Yes 60mg Take 60 mg U nivers 20 mg 2-29 by mouth ity of tablet 00:00: every [place] 00 morning. Medical Branch azithromyci 2020-0 Yes Univer s n 250 mg 2-29 ity of tablet 00:00: [place] 00 Medical Branch predniSONE 2020-0 Yes 60mg Take 60 mg U nivers 20 mg 2-29 by mouth ity of tablet 00:00: every [place] 00 morning. Medical Branch azithromyci 2020-0 2020- No Unive rs n 250 mg 2-29 09-10 ity of tablet 00:00: 00:00 [place] 00 :00 Medical Branch predniSONE 2020-0 2020- No 60mg Take 60 mg Univers 20 mg 2-29 09-10 by mouth ity of tablet 00:00: 00:00 every [place] 00 :00 morning. Medical Branch cefpodoxime 2020-0 2020- No 200mg Take 200 Univers 200 mg 2-29 08-24 mg by ity of tablet 00:00: 00:00 mouth 2 [place] 00 :00 (two) Medical times Branch daily. cefpodoxime 2020-0 2020- No 200mg Take 200 Univers 200 mg 2-29 08-24 mg by ity of tablet 00:00: 00:00 mouth 2 [place] 00 :00 (two) Medical times Branch daily. cefpodoxime 2020-0 2020- No 200mg Take 200 Univers 200 mg 2-29 08-24 mg by ity of tablet 00:00: 00:00 mouth 2 [place] 00 :00 (two) Medical times Branch daily. albuterol 2020-0 Yes [id number] 2.5mg Inhale 3 Univers 2.5 mg /3 2-28 mL every 4 ity of mL (0.083 00:00: ([facility]) [place] %) 00 hours as Medical nebulizer needed for Bran ch solution Wheezing or Shortness of Breath. albuterol 2020-0 Yes [id number] 2.5mg Inhale 3 Univers 2.5 mg /3 2-28 mL every 4 ity of mL (0.083 00:00: ([facility]) [place] %) 00 hours as Medical nebulizer needed for Bran ch solution Wheezing or Shortness of Breath. albuterol 2020-0 Yes [id number] 2.5mg Inhale 3 Univers 2.5 mg /3 2-28 mL every 4 ity of mL (0.083 00:00: ([facility]) [place] %) 00 hours as Medical nebulizer needed for Bran ch solution Wheezing or Shortness of Breath. albuterol 2020-0 Yes [id number] 2.5mg Inhale 3 Univers 2.5 mg /3 2-28 mL every 4 ity of mL (0.083 00:00: ([facility]) [place] %) 00 hours as Medical nebulizer needed for Bran ch solution Wheezing or Shortness of Breath. albuterol 2020-0 Yes [id number] 2.5mg Inhale 3 Univers 2.5 mg /3 2-28 mL every 4 ity of mL (0.083 00:00: ([facility]) [place] %) 00 hours as Medical nebulizer needed for Bran ch solution Wheezing or Shortness of Breath. albuterol 2020-0 Yes [id number] 2.5mg Inhale 3 Univers 2.5 mg /3 2-28 mL every 4 ity of mL (0.083 00:00: ([facility]) [place] %) 00 hours as Medical nebulizer needed for Bran ch solution Wheezing or Shortness of Breath. albuterol 2020-0 Yes [id number] 2.5mg Inhale 3 Univers 2.5 mg /3 2-28 mL every 4 ity of mL (0.083 00:00: (four) [place] %) 00 hours as Medical nebulizer needed for Bran ch solution Wheezing or Shortness of Breath. albuterol 2020-0 Yes [id number] 2.5mg Inhale 3 Univers 2.5 mg /3 2-28 mL every 4 ity of mL (0.083 00:00: (four) [place] %) 00 hours as Medical nebulizer needed for Bran ch solution Wheezing or Shortness of Breath. albuterol 2020-0 Yes [id number] 2.5mg Inhale 3 Univers 2.5 mg /3 2-28 mL every 4 ity of mL (0.083 00:00: (four) [place] %) 00 hours as Medical nebulizer needed for Bran ch solution Wheezing or Shortness of Breath. albuterol 2020-0 Yes [id number] 2.5mg Inhale 3 Univers 2.5 mg /3 2-28 mL every 4 ity of mL (0.083 00:00: (four) [place] %) 00 hours as Medical nebulizer needed for Bran ch solution Wheezing or Shortness of Breath. albuterol 2020-0 Yes [id number] 2.5mg Inhale 3 Univers 2.5 mg /3 2-28 mL every 4 ity of mL (0.083 00:00: (four) [place] %) 00 hours as Medical nebulizer needed for Bran ch solution Wheezing or Shortness of Breath. albuterol 2020-0 Yes [id number] 2.5mg Inhale 3 Univers 2.5 mg /3 2-28 mL every 4 ity of mL (0.083 00:00: (four) [place] %) 00 hours as Medical nebulizer needed for Bran ch solution Wheezing or Shortness of Breath. albuterol 2020-0 Yes [id number] 2.5mg Inhale 3 Univers 2.5 mg /3 2-28 mL every 4 ity of mL (0.083 00:00: (four) [place] %) 00 hours as Medical nebulizer needed for Bran ch solution Wheezing or Shortness of Breath. albuterol 2020-0 Yes [id number] 2.5mg Inhale 3 Univers 2.5 mg /3 2-28 mL every 4 ity of mL (0.083 00:00: (four) [place] %) 00 hours as Medical nebulizer needed for Bran ch solution Wheezing or Shortness of Breath. albuterol 2020-0 Yes [id number] 2.5mg Inhale 3 Univers 2.5 mg /3 2-28 mL every 4 ity of mL (0.083 00:00: (four) [place] %) 00 hours as Medical nebulizer needed for Bran ch solution Wheezing or Shortness of Breath. albuterol 2020-0 Yes [id number] 2.5mg Inhale 3 Univers 2.5 mg /3 2-28 mL every 4 ity of mL (0.083 00:00: ([facility]) [place] %) 00 hours as Medical nebulizer needed for Bran ch solution Wheezing or Shortness of Breath. albuterol 2020-0 Yes [id number] 2.5mg Inhale 3 Univers 2.5 mg /3 2-28 mL every 4 ity of mL (0.083 00:00: ([facility]) [place] %) 00 hours as Medical nebulizer needed for Bran ch solution Wheezing or Shortness of Breath. albuterol 2020-0 Yes [id number] 2.5mg Inhale 3 Univers 2.5 mg /3 2-28 mL every 4 ity of mL (0.083 00:00: ([facility]) [place] %) 00 hours as Medical nebulizer needed for Bran ch solution Wheezing or Shortness of Breath. albuterol 2020-0 Yes [id number] 2.5mg Inhale 3 Univers 2.5 mg /3 2-28 mL every 4 ity of mL (0.083 00:00: ([facility]) [place] %) 00 hours as Medical nebulizer needed for Bran ch solution Wheezing or Shortness of Breath. albuterol 2020-0 Yes [id number] 2.5mg Inhale 3 Univers 2.5 mg /3 2-28 mL every 4 ity of mL (0.083 00:00: ([facility]) [place] %) 00 hours as Medical nebulizer needed for Bran ch solution Wheezing or Shortness of Breath. albuterol 2020-0 Yes [id number] 2.5mg Inhale 3 Univers 2.5 mg /3 2-28 mL every 4 ity of mL (0.083 00:00: (four) [place] %) 00 hours as Medical nebulizer needed for Bran ch solution Wheezing or Shortness of Breath. albuterol 2020-0 Yes [id number] 2.5mg Inhale 3 Univers 2.5 mg /3 2-28 mL every 4 ity of mL (0.083 00:00: (four) [place] %) 00 hours as Medical nebulizer needed for Bran ch solution Wheezing or Shortness of Breath. albuterol 2020-0 Yes [id number] 2.5mg Inhale 3 Univers 2.5 mg /3 2-28 mL every 4 ity of mL (0.083 00:00: (four) [place] %) 00 hours as Medical nebulizer needed for Bran ch solution Wheezing or Shortness of Breath. albuterol 2020-0 Yes [id number] 2.5mg Inhale 3 Univers 2.5 mg /3 2-28 mL every 4 ity of mL (0.083 00:00: (four) [place] %) 00 hours as Medical nebulizer needed for Bran ch solution Wheezing or Shortness of Breath. albuterol 2020-0 Yes [id number] 2.5mg Inhale 3 Univers 2.5 mg /3 2-28 mL every 4 ity of mL (0.083 00:00: (four) [place] %) 00 hours as Medical nebulizer needed for Bran ch solution Wheezing or Shortness of Breath. albuterol 2020-0 Yes [id number] 2.5mg Inhale 3 Univers 2.5 mg /3 2-28 mL every 4 ity of mL (0.083 00:00: (four) [place] %) 00 hours as Medical nebulizer needed for Bran ch solution Wheezing or Shortness of Breath. albuterol 2020-0 Yes [id number] 2.5mg Inhale 3 Univers 2.5 mg /3 2-28 mL every 4 ity of mL (0.083 00:00: (four) [place] %) 00 hours as Medical nebulizer needed for Bran ch solution Wheezing or Shortness of Breath. albuterol 2020-0 Yes [id number] 2.5mg Inhale 3 Univers 2.5 mg /3 2-28 mL every 4 ity of mL (0.083 00:00: (four) [place] %) 00 hours as Medical nebulizer needed for Bran ch solution Wheezing or Shortness of Breath. albuterol 2020-0 Yes [id number] 2.5mg Inhale 3 Univers 2.5 mg /3 2-28 mL every 4 ity of mL (0.083 00:00: (four) [place] %) 00 hours as Medical nebulizer needed for Bran ch solution Wheezing or Shortness of Breath. albuterol 2020-0 Yes [id number] 2.5mg Inhale 3 Univers 2.5 mg /3 2-28 mL every 4 ity of mL (0.083 00:00: (four) [place] %) 00 hours as Medical nebulizer needed for Bran ch solution Wheezing or Shortness of Breath. albuterol 2020-0 Yes [id number] 2.5mg Inhale 3 Univers 2.5 mg /3 2-28 mL every 4 ity of mL (0.083 00:00: ([facility]) [place] %) 00 hours as Medical nebulizer needed for Bran ch solution Wheezing or Shortness of Breath. albuterol 2020-0 Yes [id number] 2.5mg Inhale 3 Univers 2.5 mg /3 2-28 mL every 4 ity of mL (0.083 00:00: ([facility]) [place] %) 00 hours as Medical nebulizer needed for Bran ch solution Wheezing or Shortness of Breath. albuterol 2020-0 Yes [id number] 2.5mg Inhale 3 Univers 2.5 mg /3 2-28 mL every 4 ity of mL (0.083 00:00: ([facility]) [place] %) 00 hours as Medical nebulizer needed for Bran ch solution Wheezing or Shortness of Breath. albuterol 2020-0 Yes [id number] 2.5mg Inhale 3 [facility] 2.5 mg /3 2-28 mL every 4 ity of mL (0.083 00:00: ([facility]) [place] %) 00 hours as Medical nebulizer needed for Bran ch solution Wheezing or Shortness of Breath. albuterol 2020-0 Yes [id number] 2.5mg Inhale 3 [facility] 2.5 mg /3 2-28 mL every 4 ity of mL (0.083 00:00: ([facility]) [place] %) 00 hours as Medical nebulizer needed for Bran ch solution Wheezing or Shortness of Breath. albuterol 2020-0 Yes [id number] 2.5mg Inhale 3 Univers 2.5 mg /3 2-28 mL every 4 ity of mL (0.083 00:00: ([facility]) [place] %) 00 hours as Medical nebulizer needed for Bran ch solution Wheezing or Shortness of Breath. albuterol 2020-0 Yes [id number] 2.5mg Inhale 3 [facility] 2.5 mg /3 2-28 mL every 4 ity of mL (0.083 00:00: ([facility]) [place] %) 00 hours as Medical nebulizer needed for Bran ch solution Wheezing or Shortness of Breath. albuterol 2020-0 Yes [id number] 2.5mg Inhale 3 Univers 2.5 mg /3 2-28 mL every 4 ity of mL (0.083 00:00: (four) [place] %) 00 hours as Medical nebulizer needed for Bran ch solution Wheezing or Shortness of Breath. albuterol 2020-0 Yes [id number] 2.5mg Inhale 3 [facility] 2.5 mg /3 2-28 mL every 4 ity of mL (0.083 00:00: (four) [place] %) 00 hours as Medical nebulizer needed for Bran ch solution Wheezing or Shortness of Breath. albuterol 2020-0 Yes [id number] 2.5mg Inhale 3 [facility] 2.5 mg /3 2-28 mL every 4 ity of mL (0.083 00:00: (four) [place] %) 00 hours as Medical nebulizer needed for Bran ch solution Wheezing or Shortness of Breath. albuterol 2020-0 Yes [id number] 2.5mg Inhale 3 [facility] 2.5 mg /3 2-28 mL every 4 ity of mL (0.083 00:00: (four) [place] %) 00 hours as Medical nebulizer needed for Bran ch solution Wheezing or Shortness of Breath. albuterol 2020-0 Yes [id number] 2.5mg Inhale 3 [facility] 2.5 mg /3 2-28 mL every 4 ity of mL (0.083 00:00: (four) [place] %) 00 hours as Medical nebulizer needed for Bran ch solution Wheezing or Shortness of Breath. albuterol 2020-0 Yes [id number] 2.5mg Inhale 3 [facility] 2.5 mg /3 2-28 mL every 4 ity of mL (0.083 00:00: (four) [place] %) 00 hours as Medical nebulizer needed for Bran ch solution Wheezing or Shortness of Breath. albuterol 2020-0 Yes [id number] 2.5mg Inhale 3 [facility] 2.5 mg /3 2-28 mL every 4 ity of mL (0.083 00:00: (four) [place] %) 00 hours as Medical nebulizer needed for Bran ch solution Wheezing or Shortness of Breath. albuterol 2020-0 Yes [id number] 2.5mg Inhale 3 [facility] 2.5 mg /3 2-28 mL every 4 ity of mL (0.083 00:00: (four) [place] %) 00 hours as Medical nebulizer needed for Bran ch solution Wheezing or Shortness of Breath. albuterol 2020-0 Yes [id number] 2.5mg Inhale 3 [facility] 2.5 mg /3 2-28 mL every 4 ity of mL (0.083 00:00: ([facility]) [place] %) 00 hours as Medical nebulizer needed for Bran ch solution Wheezing or Shortness of Breath. albuterol 2020-0 Yes [id number] 2.5mg Inhale 3 [facility] 2.5 mg /3 2-28 mL every 4 ity of mL (0.083 00:00: ([facility]) [place] %) 00 hours as Medical nebulizer needed for Bran ch solution Wheezing or Shortness of Breath. albuterol 2020-0 Yes [id number] 2.5mg Inhale 3 [facility] 2.5 mg /3 2-28 mL every 4 ity of mL (0.083 00:00: ([facility]) [place] %) 00 hours as Medical nebulizer needed for Bran ch solution Wheezing or Shortness of Breath. albuterol 2020-0 Yes [id number] 2.5mg Inhale 3 [facility] 2.5 mg /3 2-28 mL every 4 ity of mL (0.083 00:00: ([facility]) [place] %) 00 hours as Medical nebulizer needed for Bran ch solution Wheezing or Shortness of Breath. albuterol 2020-0 Yes [id number] 2.5mg Inhale 3 Univers 2.5 mg /3 2-28 mL every 4 ity of mL (0.083 00:00: (four) [place] %) 00 hours as Medical nebulizer needed for Bran ch solution Wheezing or Shortness of Breath. albuterol 2020-0 Yes [id number] 2.5mg Inhale 3 [facility] 2.5 mg /3 2-28 mL every 4 ity of mL (0.083 00:00: (four) [place] %) 00 hours as Medical nebulizer needed for Bran ch solution Wheezing or Shortness of Breath. albuterol 2020-0 Yes [id number] 2.5mg Inhale 3 Univers 2.5 mg /3 2-28 mL every 4 ity of mL (0.083 00:00: (four) [place] %) 00 hours as Medical nebulizer needed for Bran ch solution Wheezing or Shortness of Breath. albuterol 2020-0 Yes [id number] 2.5mg Inhale 3 [facility] 2.5 mg /3 2-28 mL every 4 ity of mL (0.083 00:00: (four) [place] %) 00 hours as Medical nebulizer needed for Bran ch solution Wheezing or Shortness of Breath. albuterol 2020-0 Yes [id number] 2.5mg Inhale 3 [facility] 2.5 mg /3 2-28 mL every 4 ity of mL (0.083 00:00: (four) [place] %) 00 hours as Medical nebulizer needed for Bran ch solution Wheezing or Shortness of Breath. albuterol 2020-0 Yes [id number] 2.5mg Inhale 3 Univers 2.5 mg /3 2-28 mL every 4 ity of mL (0.083 00:00: (four) [place] %) 00 hours as Medical nebulizer needed for Bran ch solution Wheezing or Shortness of Breath. albuterol 2020-0 Yes [id number] 2.5mg Inhale 3 [facility] 2.5 mg /3 2-28 mL every 4 ity of mL (0.083 00:00: ([facility]) [place] %) 00 hours as Medical nebulizer needed for Bran ch solution Wheezing or Shortness of Breath. albuterol 2020-0 Yes [id number] 2.5mg Inhale 3 [facility] 2.5 mg /3 2-28 mL every 4 ity of mL (0.083 00:00: (four) [place] %) 00 hours as Medical nebulizer needed for Bran ch solution Wheezing or Shortness of Breath. albuterol 2020-0 Yes [id number] 2.5mg Inhale 3 Univers 2.5 mg /3 2-28 mL every 4 ity of mL (0.083 00:00: (four) [place] %) 00 hours as Medical nebulizer needed for Bran ch solution Wheezing or Shortness of Breath. albuterol 2020-0 Yes [id number] 2.5mg Inhale 3 [facility] 2.5 mg /3 2-28 mL every 4 ity of mL (0.083 00:00: (four) [place] %) 00 hours as Medical nebulizer needed for Bran ch solution Wheezing or Shortness of Breath. albuterol 2020-0 Yes [id number] 2.5mg Inhale 3 [facility] 2.5 mg /3 2-28 mL every 4 ity of mL (0.083 00:00: (four) [place] %) 00 hours as Medical nebulizer needed for Bran ch solution Wheezing or Shortness of Breath. albuterol 2020-0 Yes [id number] 2.5mg Inhale 3 [facility] 2.5 mg /3 2-28 mL every 4 ity of mL (0.083 00:00: (four) [place] %) 00 hours as Medical nebulizer needed for Bran ch solution Wheezing or Shortness of Breath. albuterol 2020-0 Yes [id number] 2.5mg Inhale 3 [facility] 2.5 mg /3 2-28 mL every 4 ity of mL (0.083 00:00: (four) [place] %) 00 hours as Medical nebulizer needed for Bran ch solution Wheezing or Shortness of Breath. albuterol 2020-0 Yes [id number] 2.5mg Inhale 3 [facility] 2.5 mg /3 2-28 mL every 4 ity of mL (0.083 00:00: (four) [place] %) 00 hours as Medical nebulizer needed for Bran ch solution Wheezing or Shortness of Breath. albuterol 2020-0 Yes [id number] 2.5mg Inhale 3 [facility] 2.5 mg /3 2-28 mL every 4 ity of mL (0.083 00:00: (four) [place] %) 00 hours as Medical nebulizer needed for Bran ch solution Wheezing or Shortness of Breath. albuterol 2020-0 Yes [id number] 2.5mg Inhale 3 [facility] 2.5 mg /3 2-28 mL every 4 ity of mL (0.083 00:00: (four) [place] %) 00 hours as Medical nebulizer needed for Bran ch solution Wheezing or Shortness of Breath. albuterol 2020-0 Yes [id number] 2.5mg Inhale 3 Univers 2.5 mg /3 2-28 mL every 4 ity of mL (0.083 00:00: (four) [place] %) 00 hours as Medical nebulizer needed for Bran ch solution Wheezing or Shortness of Breath. albuterol 2020-0 Yes [id number] 2.5mg Inhale 3 [facility] 2.5 mg /3 2-28 mL every 4 ity of mL (0.083 00:00: (four) [place] %) 00 hours as Medical nebulizer needed for Bran ch solution Wheezing or Shortness of Breath. albuterol 2020-0 Yes [id number] 2.5mg Inhale 3 [facility] 2.5 mg /3 2-28 mL every 4 ity of mL (0.083 00:00: (four) [place] %) 00 hours as Medical nebulizer needed for Bran ch solution Wheezing or Shortness of Breath. albuterol 2020-0 Yes [id number] 2.5mg Inhale 3 [facility] 2.5 mg /3 2-28 mL every 4 ity of mL (0.083 00:00: (four) [place] %) 00 hours as Medical nebulizer needed for Bran ch solution Wheezing or Shortness of Breath. albuterol 2020-0 Yes [id number] 2.5mg Inhale 3 [facility] 2.5 mg /3 2-28 mL every 4 ity of mL (0.083 00:00: (four) [place] %) 00 hours as Medical nebulizer needed for Bran ch solution Wheezing or Shortness of Breath. albuterol 2020-0 Yes [id number] 2.5mg Inhale 3 [facility] 2.5 mg /3 2-28 mL every 4 ity of mL (0.083 00:00: ([facility]) [place] %) 00 hours as Medical nebulizer needed for Bran ch solution Wheezing or Shortness of Breath. albuterol 2020-0 Yes [id number] 2.5mg Inhale 3 [facility] 2.5 mg /3 2-28 mL every 4 ity of mL (0.083 00:00: (four) [place] %) 00 hours as Medical nebulizer needed for Bran ch solution Wheezing or Shortness of Breath. albuterol 2020-0 Yes [id number] 2.5mg Inhale 3 [facility] 2.5 mg /3 2-28 mL every 4 ity of mL (0.083 00:00: (four) [place] %) 00 hours as Medical nebulizer needed for Bran ch solution Wheezing or Shortness of Breath. albuterol 2020-0 Yes [id number] 2.5mg Inhale 3 [facility] 2.5 mg /3 2-28 mL every 4 ity of mL (0.083 00:00: (four) [place] %) 00 hours as Medical nebulizer needed for Bran ch solution Wheezing or Shortness of Breath. albuterol 2020-0 Yes [id number] 2.5mg Inhale 3 [facility] 2.5 mg /3 2-28 mL every 4 ity of mL (0.083 00:00: (four) [place] %) 00 hours as Medical nebulizer needed for Bran ch solution Wheezing or Shortness of Breath. albuterol 2020-0 Yes [id number] 2.5mg Inhale 3 [facility] 2.5 mg /3 2-28 mL every 4 ity of mL (0.083 00:00: (four) [place] %) 00 hours as Medical nebulizer needed for Bran ch solution Wheezing or Shortness of Breath. albuterol 2020-0 Yes [id number] 2.5mg Inhale 3 [facility] 2.5 mg /3 2-28 mL every 4 ity of mL (0.083 00:00: (four) [place] %) 00 hours as Medical nebulizer needed for Bran ch solution Wheezing or Shortness of Breath. albuterol 2020-0 Yes [id number] 2.5mg Inhale 3 [facility] 2.5 mg /3 2-28 mL every 4 ity of mL (0.083 00:00: (four) [place] %) 00 hours as Medical nebulizer needed for Bran ch solution Wheezing or Shortness of Breath. albuterol 2020-0 Yes [id number] 2.5mg Inhale 3 [facility] 2.5 mg /3 2-28 mL every 4 ity of mL (0.083 00:00: (four) [place] %) 00 hours as Medical nebulizer needed for Bran ch solution Wheezing or Shortness of Breath. albuterol 2020-0 Yes [id number] 2.5mg Inhale 3 [facility] 2.5 mg /3 2-28 mL every 4 ity of mL (0.083 00:00: (four) [place] %) 00 hours as Medical nebulizer needed for Bran ch solution Wheezing or Shortness of Breath. albuterol 2020-0 Yes [id number] 2.5mg Inhale 3 [facility] 2.5 mg /3 2-28 mL every 4 ity of mL (0.083 00:00: (four) [place] %) 00 hours as Medical nebulizer needed for Bran ch solution Wheezing or Shortness of Breath. albuterol 2020-0 Yes [id number] 2.5mg Inhale 3 [facility] 2.5 mg /3 2-28 mL every 4 ity of mL (0.083 00:00: (four) [place] %) 00 hours as Medical nebulizer needed for Bran ch solution Wheezing or Shortness of Breath. albuterol 2020-0 Yes [id number] 2.5mg Inhale 3 [facility] 2.5 mg /3 2-28 mL every 4 ity of mL (0.083 00:00: ([facility]) [place] %) 00 hours as Medical nebulizer needed for Bran ch solution Wheezing or Shortness of Breath. albuterol 2020-0 Yes [id number] 2.5mg Inhale 3 [facility] 2.5 mg /3 2-28 mL every 4 ity of mL (0.083 00:00: ([facility]) [place] %) 00 hours as Medical nebulizer needed for Bran ch solution Wheezing or Shortness of Breath. albuterol 2020-0 Yes [id number] 2.5mg Inhale 3 [facility] 2.5 mg /3 2-28 mL every 4 ity of mL (0.083 00:00: ([facility]) [place] %) 00 hours as Medical nebulizer needed for Bran ch solution Wheezing or Shortness of Breath. albuterol 2020-0 Yes [id number] 2.5mg Inhale 3 [facility] 2.5 mg /3 2-28 mL every 4 ity of mL (0.083 00:00: ([facility]) [place] %) 00 hours as Medical nebulizer needed for Bran ch solution Wheezing or Shortness of Breath. albuterol 2020-0 Yes [id number] 2.5mg Inhale 3 [facility] 2.5 mg /3 2-28 mL every 4 ity of mL (0.083 00:00: ([facility]) [place] %) 00 hours as Medical nebulizer needed for Bran ch solution Wheezing or Shortness of Breath. albuterol 2020-0 Yes [id number] 2.5mg Inhale 3 [facility] 2.5 mg /3 2-28 mL every 4 ity of mL (0.083 00:00: ([facility]) [place] %) 00 hours as Medical nebulizer needed for Bran ch solution Wheezing or Shortness of Breath. albuterol 2020-0 Yes [id number] 2.5mg Inhale 3 [facility] 2.5 mg /3 2-28 mL every 4 ity of mL (0.083 00:00: ([facility]) [place] %) 00 hours as Medical nebulizer needed for Bran ch solution Wheezing or Shortness of Breath. albuterol 2020-0 Yes [id number] 2.5mg Inhale 3 [facility] 2.5 mg /3 2-28 mL every 4 ity of mL (0.083 00:00: ([facility]) [place] %) 00 hours as Medical nebulizer needed for Bran ch solution Wheezing or Shortness of Breath. albuterol 2020-0 Yes [id number] 2.5mg Inhale 3 [facility] 2.5 mg /3 2-28 mL every 4 ity of mL (0.083 00:00: (four) [place] %) 00 hours as Medical nebulizer needed for Bran ch solution Wheezing or Shortness of Breath. albuterol 2020-0 Yes [id number] 2.5mg Inhale 3 [facility] 2.5 mg /3 2-28 mL every 4 ity of mL (0.083 00:00: (four) [place] %) 00 hours as Medical nebulizer needed for Bran ch solution Wheezing or Shortness of Breath. albuterol 2020-0 Yes [id number] 2.5mg Inhale 3 [facility] 2.5 mg /3 2-28 mL every 4 ity of mL (0.083 00:00: (four) [place] %) 00 hours as Medical nebulizer needed for Bran ch solution Wheezing or Shortness of Breath. albuterol 2020-0 Yes [id number] 2.5mg Inhale 3 [facility] 2.5 mg /3 2-28 mL every 4 ity of mL (0.083 00:00: (four) [place] %) 00 hours as Medical nebulizer needed for Bran ch solution Wheezing or Shortness of Breath. albuterol 2020-0 Yes [id number] 2.5mg Inhale 3 [facility] 2.5 mg /3 2-28 mL every 4 ity of mL (0.083 00:00: (four) [place] %) 00 hours as Medical nebulizer needed for Bran ch solution Wheezing or Shortness of Breath. albuterol 2020-0 Yes [id number] 2.5mg Inhale 3 Univers 2.5 mg /3 2-28 mL every 4 ity of mL (0.083 00:00: (four) [place] %) 00 hours as Medical nebulizer needed for Bran ch solution Wheezing or Shortness of Breath. albuterol 2020-0 Yes [id number] 2.5mg Inhale 3 [facility] 2.5 mg /3 2-28 mL every 4 ity of mL (0.083 00:00: (four) [place] %) 00 hours as Medical nebulizer needed for Bran ch solution Wheezing or Shortness of Breath. albuterol 2020-0 Yes [id number] 2.5mg Inhale 3 [facility] 2.5 mg /3 2-28 mL every 4 ity of mL (0.083 00:00: ([facility]) [place] %) 00 hours as Medical nebulizer needed for Bran ch solution Wheezing or Shortness of Breath. albuterol 2020-0 Yes [id number] 2.5mg Inhale 3 [facility] 2.5 mg /3 2-28 mL every 4 ity of mL (0.083 00:00: (four) [place] %) 00 hours as Medical nebulizer needed for Bran ch solution Wheezing or Shortness of Breath. albuterol 2020-0 Yes [id number] 2.5mg Inhale 3 [facility] 2.5 mg /3 2-28 mL every 4 ity of mL (0.083 00:00: ([facility]) [place] %) 00 hours as Medical nebulizer needed for Bran ch solution Wheezing or Shortness of Breath. albuterol 2020-0 Yes [id number] 2.5mg Inhale 3 [facility] 2.5 mg /3 2-28 mL every 4 ity of mL (0.083 00:00: ([facility]) [place] %) 00 hours as Medical nebulizer needed for Bran ch solution Wheezing or Shortness of Breath. albuterol 2020-0 Yes [id number] 2.5mg Inhale 3 [facility] 2.5 mg /3 2-28 mL every 4 ity of mL (0.083 00:00: ([facility]) [place] %) 00 hours as Medical nebulizer needed for Bran ch solution Wheezing or Shortness of Breath. albuterol 2020-0 Yes [id number] 2.5mg Inhale 3 [facility] 2.5 mg /3 2-28 mL every 4 ity of mL (0.083 00:00: ([facility]) [place] %) 00 hours as Medical nebulizer needed for Bran ch solution Wheezing or Shortness of Breath. albuterol 2020-0 Yes [id number] 2.5mg Inhale 3 [facility] 2.5 mg /3 2-28 mL every 4 ity of mL (0.083 00:00: (four) [place] %) 00 hours as Medical nebulizer needed for Bran ch solution Wheezing or Shortness of Breath. albuterol 2020-0 Yes [id number] 2.5mg Inhale 3 [facility] 2.5 mg /3 2-28 mL every 4 ity of mL (0.083 00:00: (four) [place] %) 00 hours as Medical nebulizer needed for Bran ch solution Wheezing or Shortness of Breath. albuterol 2020-0 Yes [id number] 2.5mg Inhale 3 [facility] 2.5 mg /3 2-28 mL every 4 ity of mL (0.083 00:00: (four) [place] %) 00 hours as Medical nebulizer needed for Bran ch solution Wheezing or Shortness of Breath. albuterol 2020-0 Yes [id number] 2.5mg Inhale 3 [facility] 2.5 mg /3 2-28 mL every 4 ity of mL (0.083 00:00: ([facility]) [place] %) 00 hours as Medical nebulizer needed for Bran ch solution Wheezing or Shortness of Breath. albuterol 2020-0 Yes [id number] 2.5mg Inhale 3 [facility] 2.5 mg /3 2-28 mL every 4 ity of mL (0.083 00:00: ([facility]) [place] %) 00 hours as Medical nebulizer needed for Bran ch solution Wheezing or Shortness of Breath. albuterol 2020-0 Yes [id number] 2.5mg Inhale 3 [facility] 2.5 mg /3 2-28 mL every 4 ity of mL (0.083 00:00: ([facility]) [place] %) 00 hours as Medical nebulizer needed for Bran ch solution Wheezing or Shortness of Breath. albuterol 2020-0 Yes [id number] 2.5mg Inhale 3 [facility] 2.5 mg /3 2-28 mL every 4 ity of mL (0.083 00:00: ([facility]) [place] %) 00 hours as Medical nebulizer needed for Bran ch solution Wheezing or Shortness of Breath. albuterol 2020-0 Yes [id number] 2.5mg Inhale 3 [facility] 2.5 mg /3 2-28 mL every 4 ity of mL (0.083 00:00: (four) [place] %) 00 hours as Medical nebulizer needed for Bran ch solution Wheezing or Shortness of Breath. albuterol 2020-0 Yes [id number] 2.5mg Inhale 3 [facility] 2.5 mg /3 2-28 mL every 4 ity of mL (0.083 00:00: ([facility]) [place] %) 00 hours as Medical nebulizer needed for Bran ch solution Wheezing or Shortness of Breath. albuterol 2020-0 Yes [id number] 2.5mg Inhale 3 [facility] 2.5 mg /3 2-28 mL every 4 ity of mL (0.083 00:00: (four) [place] %) 00 hours as Medical nebulizer needed for Bran ch solution Wheezing or Shortness of Breath. albuterol 2020-0 Yes [id number] 2.5mg Inhale 3 [facility] 2.5 mg /3 2-28 mL every 4 ity of mL (0.083 00:00: (four) [place] %) 00 hours as Medical nebulizer needed for Bran ch solution Wheezing or Shortness of Breath. azithromyci 2020-0 Yes [id number] 250mg Take 1 [facility] n 2-28 tablet by ity of (ZITHROMAX 00:00: mouth [place] Z-MANDO) 250 00 SEE-INSTRU Med ical mg tablet CTIONS. Branch Take 500 mg day 1, then 250 mg days 2 to 5. cefpodoxime 2020-0 Yes [id number] 200mg Take 1 [facility] 200 mg 2-28 tablet by ity of tablet 00:00: mouth 2 (two) Medical times Branch daily. predniSONE 2020-0 Yes [id number] 60mg Take 3 U nivers 20 mg 2-28 tablets by ity of tablet 00:00: mouth [place] 00 every Medical morning. Branch albuterol 2020-0 Yes [id number] 2.5mg Inhale 3 [facility] 2.5 mg /3 2-28 mL every 4 ity of mL (0.083 00:00: (four) [place] %) 00 hours as Medical nebulizer needed for Bran ch solution Wheezing or Shortness of Breath. azithromyci 2020-0 Yes [id number] 250mg Take 1 [facility] n 2-28 tablet by ity of (ZITHROMAX 00:00: mouth [place] Z-MANDO) 250 00 SEE-INSTRU Med ical mg tablet CTIONS. Branch Take 500 mg day 1, then 250 mg days 2 to 5. cefpodoxime 2020-0 Yes [id number] 200mg Take 1 [facility] 200 mg 2-28 tablet by ity of tablet 00:00: mouth 2 (two) Medical times Branch daily. predniSONE 2020-0 Yes [id number] 60mg Take 3 U nivers 20 mg 2-28 tablets by ity of tablet 00:00: mouth [place] 00 every Medical morning. Branch albuterol 2020-0 Yes [id number] 2.5mg Inhale 3 [facility] 2.5 mg /3 2-28 mL every 4 ity of mL (0.083 00:00: (four) [place] %) 00 hours as Medical nebulizer needed for Bran ch solution Wheezing or Shortness of Breath. azithromyci 2020-0 Yes [id number] 250mg Take 1 [facility] n 2-28 tablet by ity of (ZITHROMAX 00:00: mouth [place] Z-MANDO) 250 00 SEE-INSTRU Med ical mg tablet CTIONS. Branch Take 500 mg day 1, then 250 mg days 2 to 5. cefpodoxime 2020-0 Yes [id number] 200mg Take 1 [facility] 200 mg 2-28 tablet by ity of tablet 00:00: mouth 2 [place] 00 (two) Medical times Branch daily. predniSONE 2020-0 Yes [id number] 60mg Take 3 U nivers 20 mg 2-28 tablets by ity of tablet 00:00: mouth [place] 00 every Medical morning. Branch albuterol 2020-0 Yes [id number] 2.5mg Inhale 3 [facility] 2.5 mg /3 2-28 mL every 4 ity of mL (0.083 00:00: (four) [place] %) 00 hours as Medical nebulizer needed for Bran ch solution Wheezing or Shortness of Breath. azithromyci 2020-0 Yes [id number] 250mg Take 1 [facility] n 2-28 tablet by ity of (ZITHROMAX 00:00: mouth [place] Z-MANDO) 250 00 SEE-INSTRU Med ical mg tablet CTIONS. Branch Take 500 mg day 1, then 250 mg days 2 to 5. cefpodoxime 2020-0 Yes [id number] 200mg Take 1 [facility] 200 mg 2-28 tablet by ity of tablet 00:00: mouth 2 [place] 00 (two) Medical times Branch daily. predniSONE 2020-0 Yes [id number] 60mg Take 3 U nivers 20 mg 2-28 tablets by ity of tablet 00:00: mouth [place] 00 every Medical morning. Branch albuterol 2020-0 Yes [id number] 2.5mg Inhale 3 [facility] 2.5 mg /3 2-28 mL every 4 ity of mL (0.083 00:00: (four) [place] %) 00 hours as Medical nebulizer needed for Bran ch solution Wheezing or Shortness of Breath. albuterol 2020-0 Yes [id number] 2.5mg Inhale 3 [facility] 2.5 mg /3 2-28 mL every 4 ity of mL (0.083 00:00: (four) [place] %) 00 hours as Medical nebulizer needed for Bran ch solution Wheezing or Shortness of Breath. azithromyci 2019- 2020- No [id number] 250mg Take 1 [facility] n -12 12-24 tablet by ity of (ZITHROMAX 00:00: 00:00 mouth [place] Z-MANDO) 250 00 :00 SEE-INSTRU Med ical mg tablet CTIONS. Branch Take 500 mg day 1, then 250 mg days 2 to 5. cefpodoxime 2019- 2020- No [id number] 200mg Take 1 [facility] 200 mg 11-14-24 tablet by ity of tablet 00:00: 00:00 mouth 2 [place] 00 :00 (two) Medical times Branch daily. predniSONE 2019- 2020- No [id number] 60mg Take 3 [facility] 20 mg 11-14- tablets by ity of tablet 00:00: 00:00 mouth [place] 00 :00 every Medical morning. Branch albuterol Yes [id number] 2{puff} Inhale 2 [facility] 90 2-22 Puffs ity of mcg/actuati 00:00: every 4 [place] as on inhaler 00 (four) Medical hours as Branch needed for Wheezing or Shortness of Breath. acetaminoph Yes [id number] 2 - 1 [facility] en-codeine 2-22 tab Every ity of 300-30 mg 00:00: 4hrs as [place] tablet 00 needed for Medical pain or Branch cough requiring narcotic inhalationa Yes [id number] Use as Univers l spacing 2-22 directed ity of device 00:00: [place] (OPTICHAMBE 00 Medical R JEEVAN Branch [facility]) albuterol 2019-0 Yes [id number] 2{puff} Inhale 2 [facility] 90 2-22 Puffs ity of mcg/actuati 00:00: every 4 [place] as on inhaler 00 (four) Medical hours as Branch needed for Wheezing or Shortness of Breath. acetaminoph Yes [id number] 2 - 1 [facility] en-codeine 2-22 tab Every ity of 300-30 mg 00:00: 4hrs as [place] tablet 00 needed for Medical pain or Branch cough requiring narcotic inhalationa 2020-0 Yes [id number] Use as Univers l spacing 2-22 directed ity of device 00:00: [place] (PSYCHIATRIC [facility] [place]) albuterol 2020-0 Yes [id number] 2{puff} Inhale 2 [facility] 90 2-22 Puffs ity of mcg/actuati 00:00: every 4 [place] as on inhaler 00 (four) Medical hours as Branch needed for Wheezing or Shortness of Breath. acetaminoph 2020-0 Yes [id number] 1/2 - 1 [facility] en-codeine 2-22 tab Every ity of 300-30 mg 00:00: 4hrs as [place] tablet 00 needed for Medical pain or Branch cough requiring narcotic inhalationa 2020-0 Yes [id number] Use as Univers l spacing 2-22 directed ity of device 00:00: [place] ([address]) albuterol 2020-0 Yes [id number] 2{puff} Inhale 2 [facility] 90 2-22 Puffs ity of mcg/actuati 00:00: every 4 [place] as on inhaler 00 (four) Medical hours as Branch needed for Wheezing or Shortness of Breath. acetaminoph 2020-0 Yes [id number] 2 - 1 [facility] en-codeine 2-22 tab Every ity of 300-30 mg 00:00: 4hrs as [place] tablet 00 needed for Medical pain or Branch cough requiring narcotic inhalationa 2020-0 Yes [id number] Use as Univers l spacing 2-22 directed ity of device 00:00: [place] ([address]) albuterol 2020-0 Yes [id number] 2{puff} Inhale 2 [facility] 90 2-22 Puffs ity of mcg/actuati 00:00: every 4 [place] as on inhaler 00 (four) Medical hours as Branch needed for Wheezing or Shortness of Breath. acetaminoph 2020-0 Yes [id number] 1/2 - 1 [facility] en-codeine 2-22 tab Every ity of 300-30 mg 00:00: 4hrs as [place] tablet 00 needed for Medical pain or Branch cough requiring narcotic inhalationa 2020-0 Yes [id number] Use as [facility] spacing 2-22 directed ity of device 00:00: [place] ([address]) albuterol 2020-0 Yes [id number] 2{puff} Inhale 2 [facility] 90 2-22 Puffs ity of mcg/actuati 00:00: every 4 [place] as on inhaler 00 (four) Medical hours as Branch needed for Wheezing or Shortness of Breath. albuterol 2020-0 Yes [id number] 2{puff} Inhale 2 [facility] 90 2-22 Puffs ity of mcg/actuati 00:00: every 4 [place] as on inhaler 00 (four) Medical hours as Branch needed for Wheezing or Shortness of Breath. acetaminoph 2020-0 Yes [id number] 2 - 1 [facility] en-codeine 2-22 tab Every ity of 300-30 mg 00:00: 4hrs as [place] tablet 00 needed for Medical pain or Branch cough requiring narcotic inhalationa 2020-0 Yes [id number] Use as [facility] l spacing 2-22 directed ity of device 00:00: [place] ([facility] [place]) inhalationa 2020-0 Yes [id number] Use as [facility] l spacing 2-22 directed ity of device 00:00: [place] ([facility] 00 [facility] [place]) albuterol 2020-0 Yes [id number] 2{puff} Inhale 2 [facility] 90 2-22 Puffs ity of mcg/actuati 00:00: every 4 [place] as on inhaler 00 (four) Medical hours as Branch needed for Wheezing or Shortness of Breath. acetaminoph 2020-0 Yes [id number] 2 - [facility] en-codeine 2-22 tab Every ity of 300-30 mg 00:00: 4hrs as [place] tablet 00 needed for Medical pain or Branch cough requiring narcotic inhalationa 2020-0 Yes [id number] Use as [facility] l spacing 2-22 directed ity of device 00:00: [place] ([facility] 00 [facility] [place]) albuterol 2020-0 Yes [id number] 2{puff} Inhale 2 [facility] 90 2-22 Puffs ity of mcg/actuati 00:00: every 4 [place] as on inhaler 00 (four) Medical hours as Branch needed for Wheezing or Shortness of Breath. acetaminoph 2020-0 Yes [id number] 2 - 1 [facility] en-codeine 2-22 tab Every ity of 300-30 mg 00:00: 4hrs as [place] tablet 00 needed for Medical pain or Branch cough requiring narcotic inhalationa 2020-0 Yes [id number] Use as [facility] l spacing 2-22 directed ity of device 00:00: [place] ([facility] [place]) albuterol 2020-0 Yes [id number] 2{puff} Inhale 2 [facility] 90 2-22 Puffs ity of mcg/actuati 00:00: every 4 [place] as on inhaler 00 (four) Medical hours as Branch needed for Wheezing or Shortness of Breath. acetaminoph 2020-0 Yes [id number] 1/2 - 1 [facility] en-codeine 2-22 tab Every ity of 300-30 mg 00:00: 4hrs as [place] tablet 00 needed for Medical pain or Branch cough requiring narcotic inhalationa 2020-0 Yes [id number] Use as [facility] l spacing 2-22 directed ity of device 00:00: [place] ([address]) albuterol 2020-0 Yes [id number] 2{puff} Inhale 2 [facility] 90 2-22 Puffs ity of mcg/actuati 00:00: every 4 [place] [facility] on inhaler 00 (four) Medical hours as Branch needed for Wheezing or Shortness of Breath. acetaminoph 2020-0 Yes [id number] 2 - 1 [facility] en-codeine 2-22 tab Every ity of 300-30 mg 00:00: 4hrs as [place] tablet 00 needed for Medical pain or Branch cough requiring narcotic inhalationa 2020-0 Yes [id number] Use as [facility] l spacing 2-22 directed ity of device 00:00: [place] ([address]) albuterol 2020-0 Yes [id number] 2{puff} Inhale 2 [facility] 90 2-22 Puffs ity of mcg/actuati 00:00: every 4 [facility] as on inhaler 00 (four) Medical hours as Branch needed for Wheezing or Shortness of Breath. acetaminoph 2020-0 Yes [id number] 1/2 - 1 [facility] en-codeine 2-22 tab Every ity of 300-30 mg 00:00: 4hrs as [place] tablet 00 needed for Medical pain or Branch cough requiring narcotic inhalationa 2020-0 Yes [id number] Use as [facility] l spacing 2-22 directed ity of device 00:00: [place] ([address]) albuterol 2020-0 Yes [id number] 2{puff} Inhale 2 [facility] 90 2-22 Puffs ity of mcg/actuati 00:00: every 4 [place] [facility] on inhaler 00 (four) Medical hours as Branch needed for Wheezing or Shortness of Breath. acetaminoph 2020-0 Yes [id number] 2 - 1 [facility] en-codeine 2-22 tab Every ity of 300-30 mg 00:00: 4hrs as [place] tablet 00 needed for Medical pain or Branch cough requiring narcotic inhalationa 2020-0 Yes [id number] Use as [facility] l spacing 2-22 directed ity of device 00:00: [place] [facility] [place] albuterol 2020-0 Yes [id number] 2{puff} Inhale 2 [facility] 90 2-22 Puffs ity of mcg/actuati 00:00: every 4 [place] as on inhaler 00 (four) Medical hours as Branch needed for Wheezing or Shortness of Breath. acetaminoph 2020-0 Yes [id number] 2 - [facility] en-codeine 2-22 tab Every ity of 300-30 mg 00:00: 4hrs as [place] tablet 00 needed for Medical pain or Branch cough requiring narcotic inhalationa 2020-0 Yes [id number] Use as [facility] l spacing 2-22 directed ity of device 00:00: [place] [facility] [place] albuterol 2020-0 Yes [id number] 2{puff} Inhale 2 [facility] 90 2-22 Puffs ity of mcg/actuati 00:00: every 4 [place] as on inhaler 00 (four) Medical hours as Branch needed for Wheezing or Shortness of Breath. acetaminoph 2020-0 Yes [id number] 2 - 1 [facility] en-codeine 2-22 tab Every ity of 300-30 mg 00:00: 4hrs as [place] tablet 00 needed for Medical pain or Branch cough requiring narcotic inhalationa 2020-0 Yes [id number] Use as [facility] l spacing 2-22 directed ity of device 00:00: [place] [facility] [place] albuterol 2020-0 Yes [id number] 2{puff} Inhale 2 [facility] 90 2-22 Puffs ity of mcg/actuati 00:00: every 4 [place] [facility] on inhaler 00 (four) Medical hours as Branch needed for Wheezing or Shortness of Breath. acetaminoph 2020-0 Yes [id number] 2 - 1 [facility] en-codeine 2-22 tab Every ity of 300-30 mg 00:00: 4hrs as [place] tablet 00 needed for Medical pain or Branch cough requiring narcotic inhalationa 2020-0 Yes [id number] Use as [facility] l spacing 2-22 directed ity of device 00:00: [place] [facility] [place] albuterol 2020-0 Yes [id number] 2{puff} Inhale 2 [facility] 90 2-22 Puffs ity of mcg/actuati 00:00: every 4 [place] [facility] on inhaler 00 (four) Medical hours as Branch needed for Wheezing or Shortness of Breath. acetaminoph 2020-0 Yes [id number] 2 - 1 [facility] en-codeine 2-22 tab Every ity of 300-30 mg 00:00: 4hrs as [place] tablet 00 needed for Medical pain or Branch cough requiring narcotic inhalationa 2020-0 Yes [id number] Use as [facility] l spacing 2-22 directed ity of device 00:00: [place] [facility] [place] albuterol 2020-0 Yes [id number] 2{puff} Inhale 2 [facility] 90 2-22 Puffs ity of mcg/actuati 00:00: every 4 [place] [facility] on inhaler 00 (four) Medical hours as Branch needed for Wheezing or Shortness of Breath. acetaminoph 2020-0 Yes [id number] 2 - 1 [facility] en-codeine 2-22 tab Every ity of 300-30 mg 00:00: 4hrs as [place] tablet 00 needed for Medical pain or Branch cough requiring narcotic inhalationa 2020-0 Yes [id number] Use as [facility] l spacing 2-22 directed ity of device 00:00: [place] ([facility] 00 [facility] [place]) albuterol 2020-0 Yes [id number] 2{puff} Inhale 2 [facility] 90 2-22 Puffs ity of mcg/actuati 00:00: every 4 [place] [facility] on inhaler 00 (four) Medical hours as Branch needed for Wheezing or Shortness of Breath. acetaminoph 2020-0 Yes [id number] 2 - 1 [facility] en-codeine 2-22 tab Every ity of 300-30 mg 00:00: 4hrs as [place] tablet 00 needed for Medical pain or Branch cough requiring narcotic inhalationa 2020-0 Yes [id number] Use as [facility] l spacing 2-22 directed ity of device 00:00: [place] ([facility] [place]) albuterol 2020-0 Yes [id number] 2{puff} Inhale 2 [facility] 90 2-22 Puffs ity of mcg/actuati 00:00: every 4 [place] [facility] on inhaler 00 (four) Medical hours as Branch needed for Wheezing or Shortness of Breath. acetaminoph 2020-0 Yes [id number] 2 - 1 [facility] en-codeine 2-22 tab Every ity of 300-30 mg 00:00: 4hrs as [place] tablet 00 needed for Medical pain or Branch cough requiring narcotic inhalationa 2020-0 Yes [id number] Use as [facility] l spacing 2-22 directed ity of device 00:00: [place] ([address]) albuterol 2020-0 Yes [id number] 2{puff} Inhale 2 [facility] 90 2-22 Puffs ity of mcg/actuati 00:00: every 4 [place] [facility] on inhaler 00 (four) Medical hours as Branch needed for Wheezing or Shortness of Breath. acetaminoph 2020-0 Yes [id number] 2 - 1 [facility] en-codeine 2-22 tab Every ity of 300-30 mg 00:00: 4hrs as [place] tablet 00 needed for Medical pain or Branch cough requiring narcotic inhalationa 2020-0 Yes [id number] Use as [facility] l spacing 2-22 directed ity of device 00:00: [place] ([facility]) albuterol 2020-0 Yes [id number] 2{puff} Inhale 2 [facility] 90 2-22 Puffs ity of mcg/actuati 00:00: every 4 [place] [facility] on inhaler 00 (four) Medical hours as Branch needed for Wheezing or Shortness of Breath. acetaminoph 2020-0 Yes [id number] /2 - 1 [facility] en-codeine 2-22 tab Every ity of 300-30 mg 00:00: 4hrs as [place] tablet 00 needed for Medical pain or Branch cough requiring narcotic inhalationa 2020-0 Yes [id number] Use as [facility] l spacing 2-22 directed ity of device 00:00: [place] ([facility] 00 [facility]) albuterol 2020-0 Yes [id number] 2{puff} Inhale 2 [facility] 90 2-22 Puffs ity of mcg/actuati 00:00: every 4 [place] as on inhaler 00 (four) Medical hours as Branch needed for Wheezing or Shortness of Breath. acetaminoph 2020-0 Yes [id number] 2 - 1 [facility] en-codeine 2-22 tab Every ity of 300-30 mg 00:00: 4hrs as [place] tablet 00 needed for Medical pain or Branch cough requiring narcotic inhalationa 2020-0 Yes [id number] Use as [facility] l spacing 2-22 directed ity of device 00:00: [place] ([address]) albuterol 2020-0 Yes [id number] 2{puff} Inhale 2 [facility] 90 2-22 Puffs ity of mcg/actuati 00:00: every 4 [place] as on inhaler 00 (four) Medical hours as Branch needed for Wheezing or Shortness of Breath. acetaminoph 2020-0 Yes [id number] 2 - 1 [facility] en-codeine 2-22 tab Every ity of 300-30 mg 00:00: 4hrs as [place] tablet 00 needed for Medical pain or Branch cough requiring narcotic inhalationa 2020-0 Yes [id number] Use as [facility] l spacing 2-22 directed ity of device 00:00: [place] ([address]) albuterol 2020-0 Yes [id number] 2{puff} Inhale 2 [facility] 90 2-22 Puffs ity of mcg/actuati 00:00: every 4 [place] as on inhaler 00 (four) Medical hours as Branch needed for Wheezing or Shortness of Breath. acetaminoph 2020-0 Yes [id number] 2 - 1 [facility] en-codeine 2-22 tab Every ity of 300-30 mg 00:00: 4hrs as [place] tablet 00 needed for Medical pain or Branch cough requiring narcotic inhalationa 2020-0 Yes [id number] Use as [facility] l spacing 2-22 directed ity of device 00:00: [place] ([address]) albuterol 2020-0 Yes [id number] 2{puff} Inhale 2 [facility] 90 2-22 Puffs ity of mcg/actuati 00:00: every 4 [place] as on inhaler 00 (four) Medical hours as Branch needed for Wheezing or Shortness of Breath. acetaminoph 2020-0 Yes [id number] 1/2 - 1 [facility] en-codeine 2-22 tab Every ity of 300-30 mg 00:00: 4hrs as [place] tablet 00 needed for Medical pain or Branch cough requiring narcotic inhalationa 2020-0 Yes [id number] Use as [facility] l spacing 2-22 directed ity of device 00:00: [place] ([address]) albuterol 2020-0 Yes [id number] 2{puff} Inhale 2 [facility] 90 2-22 Puffs ity of mcg/actuati 00:00: every 4 [place] as on inhaler 00 (four) Medical hours as Branch needed for Wheezing or Shortness of Breath. inhalationa 2020-0 Yes [id number] Use as [facility] l spacing 2-22 directed ity of device 00:00: [place] ([address]) albuterol 2020-0 Yes [id number] 2{puff} Inhale 2 [facility] 90 2-22 Puffs ity of mcg/actuati 00:00: every 4 [place] as on inhaler 00 (four) Medical hours as Branch needed for Wheezing or Shortness of Breath. inhalationa 2020-0 Yes [id number] Use as [facility] l spacing 2-22 directed ity of device 00:00: [place] ([address]) albuterol 2020-0 Yes [id number] 2{puff} Inhale 2 [facility] 90 2-22 Puffs ity of mcg/actuati 00:00: every 4 [place] as on inhaler 00 (four) Medical hours as Branch needed for Wheezing or Shortness of Breath. inhalationa 2020-0 Yes [id number] Use as [facility] l spacing 2-22 directed ity of device 00:00: [place] ([address]) albuterol 2020-0 Yes [id number] 2{puff} Inhale 2 [facility] 90 2-22 Puffs ity of mcg/actuati 00:00: every 4 [place] as on inhaler 00 (four) Medical hours as Branch needed for Wheezing or Shortness of Breath. inhalationa 2020-0 Yes [id number] Use as [facility] l spacing 2-22 directed ity of device 00:00: [place] ([address]) albuterol 2020-0 Yes [id number] 2{puff} Inhale 2 [facility] 90 2-22 Puffs ity of mcg/actuati 00:00: every 4 [place] as on inhaler 00 (four) Medical hours as Branch needed for Wheezing or Shortness of Breath. inhalationa 2020-0 Yes [id number] Use as [facility] l spacing 2-22 directed ity of device 00:00: [place] ([address]) albuterol 2020-0 Yes [id number] 2{puff} Inhale 2 [facility] 90 2-22 Puffs ity of mcg/actuati 00:00: every 4 [place] as on inhaler 00 (four) Medical hours as Branch needed for Wheezing or Shortness of Breath. inhalationa 2020-0 Yes [id number] Use as [facility] l spacing 2-22 directed ity of device 00:00: [place] ([address]) albuterol 2020-0 Yes [id number] 2{puff} Inhale 2 [facility] 90 2-22 Puffs ity of mcg/actuati 00:00: every 4 [place] as on inhaler 00 (four) Medical hours as Branch needed for Wheezing or Shortness of Breath. inhalationa 2020-0 Yes [id number] Use as [facility] l spacing 2-22 directed ity of device 00:00: [place] ([address]) albuterol 2020-0 Yes [id number] 2{puff} Inhale 2 [facility] 90 2-22 Puffs ity of mcg/actuati 00:00: every 4 [place] as on inhaler 00 (four) Medical hours as Branch needed for Wheezing or Shortness of Breath. inhalationa 2020-0 Yes [id number] Use as [facility] l spacing 2-22 directed ity of device 00:00: [place] ([address]) albuterol 2020-0 Yes [id number] 2{puff} Inhale 2 [facility] 90 2-22 Puffs ity of mcg/actuati 00:00: every 4 [place] as on inhaler 00 (four) Medical hours as Branch needed for Wheezing or Shortness of Breath. inhalationa 2020-0 Yes [id number] Use as [facility] l spacing 2-22 directed ity of device 00:00: [place] ([address]) albuterol 2020-0 Yes [id number] 2{puff} Inhale 2 [facility] 90 2-22 Puffs ity of mcg/actuati 00:00: every 4 [place] as on inhaler 00 (four) Medical hours as Branch needed for Wheezing or Shortness of Breath. inhalationa 2020-0 Yes [id number] Use as [facility] l spacing 2-22 directed ity of device 00:00: [place] ([address]) albuterol 2020-0 Yes [id number] 2{puff} Inhale 2 [facility] 90 2-22 Puffs ity of mcg/actuati 00:00: every 4 [place] as on inhaler 00 (four) Medical hours as Branch needed for Wheezing or Shortness of Breath. inhalationa 2020-0 Yes [id number] Use as [facility] l spacing 2-22 directed ity of device 00:00: [place] ([address]) albuterol 2020-0 Yes [id number] 2{puff} Inhale 2 [facility] 90 2-22 Puffs ity of mcg/actuati 00:00: every 4 [place] as on inhaler 00 (four) Medical hours as Branch needed for Wheezing or Shortness of Breath. inhalationa 2020-0 Yes [id number] Use as [facility] l spacing 2-22 directed ity of device 00:00: [place] ([address]) albuterol 2020-0 Yes [id number] 2{puff} Inhale 2 [facility] 90 2-22 Puffs ity of mcg/actuati 00:00: every 4 [place] as on inhaler 00 (four) Medical hours as Branch needed for Wheezing or Shortness of Breath. inhalationa 2020-0 Yes [id number] Use as [facility] l spacing 2-22 directed ity of device 00:00: [place] ([address]) albuterol 2020-0 Yes [id number] 2{puff} Inhale 2 [facility] 90 2-22 Puffs ity of mcg/actuati 00:00: every 4 [place] as on inhaler 00 (four) Medical hours as Branch needed for Wheezing or Shortness of Breath. inhalationa 2020-0 Yes [id number] Use as [facility] l spacing 2-22 directed ity of device 00:00: [place] ([address]) albuterol 2020-0 Yes [id number] 2{puff} Inhale 2 [facility] 90 2-22 Puffs ity of mcg/actuati 00:00: every 4 [place] as on inhaler 00 (four) Medical hours as Branch needed for Wheezing or Shortness of Breath. inhalationa 2020-0 Yes [id number] Use as [facility] l spacing 2-22 directed ity of device 00:00: [place] ([address]) albuterol 2020-0 Yes [id number] 2{puff} Inhale 2 [facility] 90 2-22 Puffs ity of mcg/actuati 00:00: every 4 [place] as on inhaler 00 (four) Medical hours as Branch needed for Wheezing or Shortness of Breath. inhalationa 2020-0 Yes [id number] Use as [facility] l spacing 2-22 directed ity of device 00:00: [place] ([address]) albuterol 2020-0 Yes [id number] 2{puff} Inhale 2 [facility] 90 2-22 Puffs ity of mcg/actuati 00:00: every 4 [place] as on inhaler 00 (four) Medical hours as Branch needed for Wheezing or Shortness of Breath. inhalationa 2020-0 Yes [id number] Use as [facility] l spacing 2-22 directed ity of device 00:00: [place] ([address]) albuterol 2020-0 Yes [id number] 2{puff} Inhale 2 [facility] 90 2-22 Puffs ity of mcg/actuati 00:00: every 4 [place] as on inhaler 00 (four) Medical hours as Branch needed for Wheezing or Shortness of Breath. inhalationa 2020-0 Yes [id number] Use as [facility] l spacing 2-22 directed ity of device 00:00: [place] ([address]) albuterol 2020-0 Yes [id number] 2{puff} Inhale 2 [facility] 90 2-22 Puffs ity of mcg/actuati 00:00: every 4 [place] as on inhaler 00 (four) Medical hours as Branch needed for Wheezing or Shortness of Breath. inhalationa 2020-0 Yes [id number] Use as [facility] l spacing 2-22 directed ity of device 00:00: [place] ([address]) albuterol 2020-0 Yes [id number] 2{puff} Inhale 2 [facility] 90 2-22 Puffs ity of mcg/actuati 00:00: every 4 [place] as on inhaler 00 (four) Medical hours as Branch needed for Wheezing or Shortness of Breath. inhalationa 2020-0 Yes [id number] Use as [facility] l spacing 2-22 directed ity of device 00:00: [place] ([address]) albuterol 2020-0 Yes [id number] 2{puff} Inhale 2 [facility] 90 2-22 Puffs ity of mcg/actuati 00:00: every 4 [place] as on inhaler 00 (four) Medical hours as Branch needed for Wheezing or Shortness of Breath. inhalationa 2020-0 Yes [id number] Use as [facility] l spacing 2-22 directed ity of device 00:00: [place] ([address]) albuterol 2020-0 Yes [id number] 2{puff} Inhale 2 [facility] 90 2-22 Puffs ity of mcg/actuati 00:00: every 4 [place] as on inhaler 00 (four) Medical hours as Branch needed for Wheezing or Shortness of Breath. inhalationa 2020-0 Yes [id number] Use as [facility] l spacing 2-22 directed ity of device 00:00: [place] ([address]) albuterol 2020-0 Yes [id number] 2{puff} Inhale 2 [facility] 90 2-22 Puffs ity of mcg/actuati 00:00: every 4 [place] as on inhaler 00 (four) Medical hours as Branch needed for Wheezing or Shortness of Breath. inhalationa 2020-0 Yes [id number] Use as [facility] l spacing 2-22 directed ity of device 00:00: [place] ([address]) albuterol 2020-0 Yes [id number] 2{puff} Inhale 2 [facility] 90 2-22 Puffs ity of mcg/actuati 00:00: every 4 [place] as on inhaler 00 (four) Medical hours as Branch needed for Wheezing or Shortness of Breath. inhalationa 2020-0 Yes [id number] Use as [facility] l spacing 2-22 directed ity of device 00:00: [place] ([address]) albuterol 2020-0 Yes [id number] 2{puff} Inhale 2 [facility] 90 2-22 Puffs ity of mcg/actuati 00:00: every 4 [place] as on inhaler 00 (four) Medical hours as Branch needed for Wheezing or Shortness of Breath. inhalationa 2020-0 Yes [id number] Use as [facility] l spacing 2-22 directed ity of device 00:00: [place] ([address]) albuterol 2020-0 Yes [id number] 2{puff} Inhale 2 [facility] 90 2-22 Puffs ity of mcg/actuati 00:00: every 4 [place] as on inhaler 00 (four) Medical hours as Branch needed for Wheezing or Shortness of Breath. inhalationa 2020-0 Yes [id number] Use as [facility] l spacing 2-22 directed ity of device 00:00: [place] ([address]) albuterol 2020-0 Yes [id number] 2{puff} Inhale 2 [facility] 90 2-22 Puffs ity of mcg/actuati 00:00: every 4 [place] as on inhaler 00 (four) Medical hours as Branch needed for Wheezing or Shortness of Breath. inhalationa 2020-0 Yes [id number] Use as [facility] l spacing 2-22 directed ity of device 00:00: [place] ([address]) albuterol 2020-0 Yes [id number] 2{puff} Inhale 2 [facility] 90 2-22 Puffs ity of mcg/actuati 00:00: every 4 [place] as on inhaler 00 (four) Medical hours as Branch needed for Wheezing or Shortness of Breath. inhalationa 2020-0 Yes [id number] Use as [facility] l spacing 2-22 directed ity of device 00:00: [place] ([address]) albuterol 2020-0 Yes [id number] 2{puff} Inhale 2 [facility] 90 2-22 Puffs ity of mcg/actuati 00:00: every 4 [place] as on inhaler 00 (four) Medical hours as Branch needed for Wheezing or Shortness of Breath. inhalationa 2020-0 Yes [id number] Use as [facility] l spacing 2-22 directed ity of device 00:00: [place] ([address]) albuterol 2020-0 Yes [id number] 2{puff} Inhale 2 [facility] 90 2-22 Puffs ity of mcg/actuati 00:00: every 4 [place] as on inhaler 00 (four) Medical hours as Branch needed for Wheezing or Shortness of Breath. inhalationa 2020-0 Yes [id number] Use as [facility] l spacing 2-22 directed ity of device 00:00: [place] ([address]) albuterol 2020-0 Yes [id number] 2{puff} Inhale 2 [facility] 90 2-22 Puffs ity of mcg/actuati 00:00: every 4 [place] as on inhaler 00 (four) Medical hours as Branch needed for Wheezing or Shortness of Breath. inhalationa 2020-0 Yes [id number] Use as [facility] l spacing 2-22 directed ity of device 00:00: [place] ([address]) albuterol 2020-0 Yes [id number] 2{puff} Inhale 2 [facility] 90 2-22 Puffs ity of mcg/actuati 00:00: every 4 [place] as on inhaler 00 (four) Medical hours as Branch needed for Wheezing or Shortness of Breath. inhalationa 2020-0 Yes [id number] Use as [facility] l spacing 2-22 directed ity of device 00:00: [place] ([address]) albuterol 2020-0 Yes [id number] 2{puff} Inhale 2 [facility] 90 2-22 Puffs ity of mcg/actuati 00:00: every 4 [place] as on inhaler 00 (four) Medical hours as Branch needed for Wheezing or Shortness of Breath. inhalationa 2020-0 Yes [id number] Use as [facility] l spacing 2-22 directed ity of device 00:00: [place] ([address]) albuterol 2020-0 Yes [id number] 2{puff} Inhale 2 [facility] 90 2-22 Puffs ity of mcg/actuati 00:00: every 4 [place] as on inhaler 00 (four) Medical hours as Branch needed for Wheezing or Shortness of Breath. inhalationa 2020-0 Yes [id number] Use as [facility] l spacing 2-22 directed ity of device 00:00: [place] ([address]) albuterol 2020-0 Yes [id number] 2{puff} Inhale 2 [facility] 90 2-22 Puffs ity of mcg/actuati 00:00: every 4 [place] as on inhaler 00 (four) Medical hours as Branch needed for Wheezing or Shortness of Breath. inhalationa 2020-0 Yes [id number] Use as [facility] l spacing 2-22 directed ity of device 00:00: [place] ([address]) albuterol 2020-0 Yes [id number] 2{puff} Inhale 2 [facility] 90 2-22 Puffs ity of mcg/actuati 00:00: every 4 [place] as on inhaler 00 (four) Medical hours as Branch needed for Wheezing or Shortness of Breath. inhalationa 2020-0 Yes [id number] Use as [facility] l spacing 2-22 directed ity of device 00:00: [place] ([address]) albuterol 2020-0 Yes [id number] 2{puff} Inhale 2 [facility] 90 2-22 Puffs ity of mcg/actuati 00:00: every 4 [place] as on inhaler 00 (four) Medical hours as Branch needed for Wheezing or Shortness of Breath. inhalationa 2020-0 Yes [id number] Use as [facility] l spacing 2-22 directed ity of device 00:00: [place] ([address]) albuterol 2020-0 Yes [id number] 2{puff} Inhale 2 [facility] 90 2-22 Puffs ity of mcg/actuati 00:00: every 4 [place] as on inhaler 00 (four) Medical hours as Branch needed for Wheezing or Shortness of Breath. inhalationa 2020-0 Yes [id number] Use as [facility] l spacing 2-22 directed ity of device 00:00: [place] ([address]) albuterol 2020-0 Yes [id number] 2{puff} Inhale 2 [facility] 90 2-22 Puffs ity of mcg/actuati 00:00: every 4 [place] as on inhaler 00 (four) Medical hours as Branch needed for Wheezing or Shortness of Breath. inhalationa 2020-0 Yes [id number] Use as [facility] l spacing 2-22 directed ity of device 00:00: [place] ([address]) albuterol 2020-0 Yes [id number] 2{puff} Inhale 2 [facility] 90 2-22 Puffs ity of mcg/actuati 00:00: every 4 [place] as on inhaler 00 (four) Medical hours as Branch needed for Wheezing or Shortness of Breath. inhalationa 2020-0 Yes [id number] Use as [facility] l spacing 2-22 directed ity of device 00:00: [place] ([address]) albuterol 2020-0 Yes [id number] 2{puff} Inhale 2 [facility] 90 2-22 Puffs ity of mcg/actuati 00:00: every 4 [place] as on inhaler 00 (four) Medical hours as Branch needed for Wheezing or Shortness of Breath. inhalationa 2020-0 Yes [id number] Use as [facility] l spacing 2-22 directed ity of device 00:00: [place] ([address]) albuterol 2020-0 Yes [id number] 2{puff} Inhale 2 [facility] 90 2-22 Puffs ity of mcg/actuati 00:00: every 4 [place] on inhaler 00 (four) Medical hours as Branch needed for Wheezing or Shortness of Breath. inhalationa 2020-0 Yes [id number] Use as [facility] l spacing 2-22 directed ity of device 00:00: [place] ([address]) albuterol 2020-0 Yes [id number] 2{puff} Inhale 2 [facility] 90 2-22 Puffs ity of mcg/actuati 00:00: every 4 [place] on inhaler 00 (four) Medical hours as Branch needed for Wheezing or Shortness of Breath. inhalationa 2020-0 Yes [id number] Use as [facility] l spacing 2-22 directed ity of device 00:00: [place] ([address]) albuterol 2020-0 Yes [id number] 2{puff} Inhale 2 [facility] 90 2-22 Puffs ity of mcg/actuati 00:00: every 4 [place] on inhaler 00 (four) Medical hours as Branch needed for Wheezing or Shortness of Breath. inhalationa 2020-0 Yes [id number] Use as [facility] l spacing 2-22 directed ity of device 00:00: [place] ([address]) albuterol 2020-0 Yes [id number] 2{puff} Inhale 2 [facility] 90 2-22 Puffs ity of mcg/actuati 00:00: every 4 [place] on inhaler 00 (four) Medical hours as Branch needed for Wheezing or Shortness of Breath. inhalationa 2020-0 Yes [id number] Use as [facility] l spacing 2-22 directed ity of device 00:00: [place] ([address]) albuterol 2020-0 Yes [id number] 2{puff} Inhale 2 [facility] 90 2-22 Puffs ity of mcg/actuati 00:00: every 4 [place] on inhaler 00 (four) Medical hours as Branch needed for Wheezing or Shortness of Breath. inhalationa 2020-0 Yes [id number] Use as [facility] l spacing 2-22 directed ity of device 00:00: [place] ([address]) albuterol 2020-0 Yes [id number] 2{puff} Inhale 2 [facility] 90 2-22 Puffs ity of mcg/actuati 00:00: every 4 [place] on inhaler 00 (four) Medical hours as Branch needed for Wheezing or Shortness of Breath. inhalationa 2020-0 Yes [id number] Use as [facility] l spacing 2-22 directed ity of device 00:00: [place] ([address]) albuterol 2020-0 Yes [id number] 2{puff} Inhale 2 [facility] 90 2-22 Puffs ity of mcg/actuati 00:00: every 4 [place] on inhaler 00 (four) Medical hours as Branch needed for Wheezing or Shortness of Breath. inhalationa 2020-0 Yes [id number] Use as [facility] l spacing 2-22 directed ity of device 00:00: [place] ([address]) albuterol 2020-0 Yes [id number] 2{puff} Inhale 2 [facility] 90 2-22 Puffs ity of mcg/actuati 00:00: every 4 [place] on inhaler 00 (four) Medical hours as Branch needed for Wheezing or Shortness of Breath. inhalationa 2020-0 Yes [id number] Use as [facility] l spacing 2-22 directed ity of device 00:00: [place] ([address]) albuterol 2020-0 Yes [id number] 2{puff} Inhale 2 [facility] 90 2-22 Puffs ity of mcg/actuati 00:00: every 4 [place] on inhaler 00 (four) Medical hours as Branch needed for Wheezing or Shortness of Breath. inhalationa 2020-0 Yes [id number] Use as [facility] l spacing 2-22 directed ity of device 00:00: [place] ([address]) albuterol 2020-0 Yes [id number] 2{puff} Inhale 2 [facility] 90 2-22 Puffs ity of mcg/actuati 00:00: every 4 [place] on inhaler 00 (four) Medical hours as Branch needed for Wheezing or Shortness of Breath. inhalationa 2020-0 Yes [id number] Use as [facility] l spacing 2-22 directed ity of device 00:00: [place] ([address]) albuterol 2020-0 Yes [id number] 2{puff} Inhale 2 [facility] 90 2-22 Puffs ity of mcg/actuati 00:00: every 4 [place] on inhaler 00 (four) Medical hours as Branch needed for Wheezing or Shortness of Breath. inhalationa 2020-0 Yes [id number] Use as [facility] l spacing 2-22 directed ity of device 00:00: [place] ([address]) albuterol 2020-0 Yes [id number] 2{puff} Inhale 2 [facility] 90 2-22 Puffs ity of mcg/actuati 00:00: every 4 [place] on inhaler 00 (four) Medical hours as Branch needed for Wheezing or Shortness of Breath. inhalationa 2020-0 Yes [id number] Use as [facility] l spacing 2-22 directed ity of device 00:00: [place] ([address]) albuterol 2020-0 Yes [id number] 2{puff} Inhale 2 [facility] 90 2-22 Puffs ity of mcg/actuati 00:00: every 4 [place] on inhaler 00 (four) Medical hours as Branch needed for Wheezing or Shortness of Breath. inhalationa 2020-0 Yes [id number] Use as [facility] l spacing 2-22 directed ity of device 00:00: [place] ([address]) albuterol 2020-0 Yes [id number] 2{puff} Inhale 2 [facility] 90 2-22 Puffs ity of mcg/actuati 00:00: every 4 [place] on inhaler 00 (four) Medical hours as Branch needed for Wheezing or Shortness of Breath. inhalationa 2020-0 Yes [id number] Use as [facility] l spacing 2-22 directed ity of device 00:00: [place] ([address]) albuterol 2020-0 Yes [id number] 2{puff} Inhale 2 [facility] 90 2-22 Puffs ity of mcg/actuati 00:00: every 4 [place] on inhaler 00 (four) Medical hours as Branch needed for Wheezing or Shortness of Breath. inhalationa 2020-0 Yes [id number] Use as [facility] l spacing 2-22 directed ity of device 00:00: [place] ([address]) albuterol 2020-0 Yes [id number] 2{puff} Inhale 2 [facility] 90 2-22 Puffs ity of mcg/actuati 00:00: every 4 [place] on inhaler 00 (four) Medical hours as Branch needed for Wheezing or Shortness of Breath. inhalationa 2020-0 Yes [id number] Use as [facility] l spacing 2-22 directed ity of device 00:00: [place] ([address]) albuterol 2020-0 Yes [id number] 2{puff} Inhale 2 [facility] 90 2-22 Puffs ity of mcg/actuati 00:00: every 4 [place] on inhaler 00 (four) Medical hours as Branch needed for Wheezing or Shortness of Breath. inhalationa 2020-0 Yes [id number] Use as [facility] l spacing 2-22 directed ity of device 00:00: [place] ([address]) albuterol 2020-0 Yes [id number] 2{puff} Inhale 2 [facility] 90 2-22 Puffs ity of mcg/actuati 00:00: every 4 [place] on inhaler 00 (four) Medical hours as Branch needed for Wheezing or Shortness of Breath. inhalationa 2020-0 Yes [id number] Use as [facility] l spacing 2-22 directed ity of device 00:00: [place] ([address]) albuterol 2020-0 Yes [id number] 2{puff} Inhale 2 [facility] 90 2-22 Puffs ity of mcg/actuati 00:00: every 4 [place] on inhaler 00 (four) Medical hours as Branch needed for Wheezing or Shortness of Breath. inhalationa 2020-0 Yes [id number] Use as [facility] l spacing 2-22 directed ity of device 00:00: [place] ([address]) albuterol 2020-0 Yes [id number] 2{puff} Inhale 2 [facility] 90 2-22 Puffs ity of mcg/actuati 00:00: every 4 [place] on inhaler 00 (four) Medical hours as Branch needed for Wheezing or Shortness of Breath. inhalationa 2020-0 Yes [id number] Use as [facility] l spacing 2-22 directed ity of device 00:00: [place] ([address]) albuterol 2020-0 Yes [id number] 2{puff} Inhale 2 [facility] 90 2-22 Puffs ity of mcg/actuati 00:00: every 4 [place] on inhaler 00 (four) Medical hours as Branch needed for Wheezing or Shortness of Breath. inhalationa 2020-0 Yes [id number] Use as [facility] l spacing 2-22 directed ity of device 00:00: [place] ([address]) albuterol 2020-0 Yes [id number] 2{puff} Inhale 2 [facility] 90 2-22 Puffs ity of mcg/actuati 00:00: every 4 [place] on inhaler 00 (four) Medical hours as Branch needed for Wheezing or Shortness of Breath. inhalationa 2020-0 Yes [id number] Use as [facility] l spacing 2-22 directed ity of device 00:00: [place] ([address]) albuterol 2020-0 Yes [id number] 2{puff} Inhale 2 [facility] 90 2-22 Puffs ity of mcg/actuati 00:00: every 4 [place] [facility] on inhaler 00 (four) Medical hours as Branch needed for Wheezing or Shortness of Breath. inhalationa 2020-0 Yes [id number] Use as [facility] l spacing 2-22 directed ity of device 00:00: [place] ([address]) albuterol 2020-0 Yes [id number] 2{puff} Inhale 2 [facility] 90 2-22 Puffs ity of mcg/actuati 00:00: every 4 [place] [facility] on inhaler 00 (four) Medical hours as Branch needed for Wheezing or Shortness of Breath. inhalationa 2020-0 Yes [id number] Use as [facility] l spacing 2-22 directed ity of device 00:00: [place] ([address]) albuterol 2020-0 Yes [id number] 2{puff} Inhale 2 [facility] 90 2-22 Puffs ity of mcg/actuati 00:00: every 4 [place] [facility] on inhaler 00 (four) Medical hours as Branch needed for Wheezing or Shortness of Breath. inhalationa 2020-0 Yes [id number] Use as [facility] l spacing 2-22 directed ity of device 00:00: [place] ([address]) albuterol 2020-0 Yes [id number] 2{puff} Inhale 2 [facility] 90 2-22 Puffs ity of mcg/actuati 00:00: every 4 [place] [facility] on inhaler 00 (four) Medical hours as Branch needed for Wheezing or Shortness of Breath. inhalationa 2020-0 Yes [id number] Use as [facility] l spacing 2-22 directed ity of device 00:00: [place] ([address]) albuterol 2020-0 Yes [id number] 2{puff} Inhale 2 [facility] 90 2-22 Puffs ity of mcg/actuati 00:00: every 4 [place] as on inhaler 00 (four) Medical hours as Branch needed for Wheezing or Shortness of Breath. inhalationa 2020-0 Yes [id number] Use as [facility] l spacing 2-22 directed ity of device 00:00: [place] ([address]) albuterol 2020-0 Yes [id number] 2{puff} Inhale 2 [facility] 90 2-22 Puffs ity of mcg/actuati 00:00: every 4 [place] as on inhaler 00 (four) Medical hours as Branch needed for Wheezing or Shortness of Breath. inhalationa 2020-0 Yes [id number] Use as [facility] l spacing 2-22 directed ity of device 00:00: [place] ([address]) albuterol 2020-0 Yes [id number] 2{puff} Inhale 2 [facility] 90 2-22 Puffs ity of mcg/actuati 00:00: every 4 [place] as on inhaler 00 (four) Medical hours as Branch needed for Wheezing or Shortness of Breath. inhalationa 2020-0 Yes [id number] Use as [facility] l spacing 2-22 directed ity of device 00:00: [place] ([address]) albuterol 2020-0 Yes [id number] 2{puff} Inhale 2 [facility] 90 2-22 Puffs ity of mcg/actuati 00:00: every 4 [place] as on inhaler 00 (four) Medical hours as Branch needed for Wheezing or Shortness of Breath. inhalationa 2020-0 Yes [id number] Use as [facility] l spacing 2-22 directed ity of device 00:00: [place] ([address]) albuterol 2020-0 Yes [id number] 2{puff} Inhale 2 [facility] 90 2-22 Puffs ity of mcg/actuati 00:00: every 4 [place] as on inhaler 00 (four) Medical hours as Branch needed for Wheezing or Shortness of Breath. inhalationa 2020-0 Yes [id number] Use as [facility] l spacing 2-22 directed ity of device 00:00: [place] ([address]) albuterol 2020-0 Yes [id number] 2{puff} Inhale 2 [facility] 90 2-22 Puffs ity of mcg/actuati 00:00: every 4 [place] as on inhaler 00 (four) Medical hours as Branch needed for Wheezing or Shortness of Breath. inhalationa 2020-0 Yes [id number] Use as [facility] l spacing 2-22 directed ity of device 00:00: [place] ([address]) albuterol 2020-0 Yes [id number] 2{puff} Inhale 2 [facility] 90 2-22 Puffs ity of mcg/actuati 00:00: every 4 [place] as on inhaler 00 (four) Medical hours as Branch needed for Wheezing or Shortness of Breath. inhalationa 2020-0 Yes [id number] Use as [facility] l spacing 2-22 directed ity of device 00:00: [place] ([address]) albuterol 2020-0 Yes [id number] 2{puff} Inhale 2 [facility] 90 2-22 Puffs ity of mcg/actuati 00:00: every 4 [place] as on inhaler 00 (four) Medical hours as Branch needed for Wheezing or Shortness of Breath. inhalationa 2020-0 Yes [id number] Use as [facility] l spacing 2-22 directed ity of device 00:00: [place] ([address]) albuterol 2020-0 Yes [id number] 2{puff} Inhale 2 [facility] 90 2-22 Puffs ity of mcg/actuati 00:00: every 4 [place] as on inhaler 00 (four) Medical hours as Branch needed for Wheezing or Shortness of Breath. inhalationa 2020-0 Yes [id number] Use as [facility] l spacing 2-22 directed ity of device 00:00: [place] ([address]) albuterol 2020-0 Yes [id number] 2{puff} Inhale 2 [facility] 90 2-22 Puffs ity of mcg/actuati 00:00: every 4 [place] as on inhaler 00 (four) Medical hours as Branch needed for Wheezing or Shortness of Breath. inhalationa 2020-0 Yes [id number] Use as [facility] l spacing 2-22 directed ity of device 00:00: [place] ([address]) albuterol 2020-0 Yes [id number] 2{puff} Inhale 2 [facility] 90 2-22 Puffs ity of mcg/actuati 00:00: every 4 [place] as on inhaler 00 (four) Medical hours as Branch needed for Wheezing or Shortness of Breath. inhalationa 2020-0 Yes [id number] Use as [facility] l spacing 2-22 directed ity of device 00:00: [place] ([address]) albuterol 2020-0 Yes [id number] 2{puff} Inhale 2 [facility] 90 2-22 Puffs ity of mcg/actuati 00:00: every 4 [place] as on inhaler 00 (four) Medical hours as Branch needed for Wheezing or Shortness of Breath. inhalationa 2020-0 Yes [id number] Use as [facility] l spacing 2-22 directed ity of device 00:00: [place] ([address]) albuterol 2020-0 Yes [id number] 2{puff} Inhale 2 [facility] 90 2-22 Puffs ity of mcg/actuati 00:00: every 4 [place] as on inhaler 00 (four) Medical hours as Branch needed for Wheezing or Shortness of Breath. inhalationa 2020-0 Yes [id number] Use as [facility] l spacing 2-22 directed ity of device 00:00: [place] ([address]) albuterol 2020-0 Yes [id number] 2{puff} Inhale 2 [facility] 90 2-22 Puffs ity of mcg/actuati 00:00: every 4 [place] as on inhaler 00 (four) Medical hours as Branch needed for Wheezing or Shortness of Breath. inhalationa 2020-0 Yes [id number] Use as [facility] l spacing 2-22 directed ity of device 00:00: [place] ([address]) albuterol 2020-0 Yes [id number] 2{puff} Inhale 2 [facility] 90 2-22 Puffs ity of mcg/actuati 00:00: every 4 [place] as on inhaler 00 (four) Medical hours as Branch needed for Wheezing or Shortness of Breath. inhalationa 2020-0 Yes [id number] Use as [facility] l spacing 2-22 directed ity of device 00:00: [place] ([address]) albuterol 2020-0 Yes [id number] 2{puff} Inhale 2 [facility] 90 2-22 Puffs ity of mcg/actuati 00:00: every 4 [place] as on inhaler 00 (four) Medical hours as Branch needed for Wheezing or Shortness of Breath. inhalationa 2020-0 Yes [id number] Use as [facility] l spacing 2-22 directed ity of device 00:00: [place] ([address]) albuterol 2020-0 Yes [id number] 2{puff} Inhale 2 [facility] 90 2-22 Puffs ity of mcg/actuati 00:00: every 4 [place] as on inhaler 00 (four) Medical hours as Branch needed for Wheezing or Shortness of Breath. inhalationa 2020-0 Yes [id number] Use as [facility] l spacing 2-22 directed ity of device 00:00: [place] ([address]) albuterol 2020-0 Yes [id number] 2{puff} Inhale 2 [facility] 90 2-22 Puffs ity of mcg/actuati 00:00: every 4 [place] as on inhaler 00 (four) Medical hours as Branch needed for Wheezing or Shortness of Breath. inhalationa 2020-0 Yes [id number] Use as [facility] l spacing 2-22 directed ity of device 00:00: [place] ([address]) albuterol 2020-0 Yes [id number] 2{puff} Inhale 2 [facility] 90 2-22 Puffs ity of mcg/actuati 00:00: every 4 [place] as on inhaler 00 (four) Medical hours as Branch needed for Wheezing or Shortness of Breath. inhalationa 2020-0 Yes [id number] Use as [facility] l spacing 2-22 directed ity of device 00:00: [place] ([address]) albuterol 2020-0 Yes [id number] 2{puff} Inhale 2 [facility] 90 2-22 Puffs ity of mcg/actuati 00:00: every 4 [place] as on inhaler 00 (four) Medical hours as Branch needed for Wheezing or Shortness of Breath. inhalationa 2020-0 Yes [id number] Use as [facility] l spacing 2-22 directed ity of device 00:00: [place] ([address]) albuterol 2020-0 Yes [id number] 2{puff} Inhale 2 [facility] 90 2-22 Puffs ity of mcg/actuati 00:00: every 4 [place] as on inhaler 00 (four) Medical hours as Branch needed for Wheezing or Shortness of Breath. inhalationa 2020-0 Yes [id number] Use as [facility] l spacing 2-22 directed ity of device 00:00: [place] ([address]) albuterol 2020-0 Yes [id number] 2{puff} Inhale 2 [facility] 90 2-22 Puffs ity of mcg/actuati 00:00: every 4 [place] as on inhaler 00 (four) Medical hours as Branch needed for Wheezing or Shortness of Breath. inhalationa 2020-0 Yes [id number] Use as [facility] l spacing 2-22 directed ity of device 00:00: [place] ([address]) albuterol 2020-0 Yes [id number] 2{puff} Inhale 2 [facility] 90 2-22 Puffs ity of mcg/actuati 00:00: every 4 [place] as on inhaler 00 (four) Medical hours as Branch needed for Wheezing or Shortness of Breath. acetaminoph 2020-0 Yes [id number] 1/2 - 1 [facility] en-codeine 2-22 tab Every ity of 300-30 mg 00:00: 4hrs as [place] tablet 00 needed for Medical pain or Branch cough requiring narcotic inhalationa 2020-0 Yes [id number] Use as [facility] l spacing 2-22 directed ity of device 00:00: [place] ([address]) albuterol 2020-0 Yes [id number] 2{puff} Inhale 2 [facility] 90 2-22 Puffs ity of mcg/actuati 00:00: every 4 [place] as on inhaler 00 (four) Medical hours as Branch needed for Wheezing or Shortness of Breath. acetaminoph 2020-0 Yes [id number] 2 - [facility] en-codeine 2-22 tab Every ity of 300-30 mg 00:00: 4hrs as [place] tablet 00 needed for Medical pain or Branch cough requiring narcotic inhalationa 2020-0 Yes [id number] Use as [facility] l spacing 2-22 directed ity of device 00:00: [place] ([address]) albuterol 2020-0 Yes [id number] 2{puff} Inhale 2 [facility] 90 2-22 Puffs ity of mcg/actuati 00:00: every 4 [place] as on inhaler 00 (four) Medical hours as Branch needed for Wheezing or Shortness of Breath. acetaminoph 2020-0 Yes [id number] 2 - [facility] en-codeine 2-22 tab Every ity of 300-30 mg 00:00: 4hrs as [place] tablet 00 needed for Medical pain or Branch cough requiring narcotic inhalationa 2020-0 Yes [id number] Use as [facility] l spacing 2-22 directed ity of device 00:00: [place] ([address]) albuterol 2020-0 Yes [id number] 2{puff} Inhale 2 [facility] 90 2-22 Puffs ity of mcg/actuati 00:00: every 4 [place] as on inhaler 00 (four) Medical hours as Branch needed for Wheezing or Shortness of Breath. acetaminoph 2020-0 Yes [id number] 2 - [facility] en-codeine 2-22 tab Every ity of 300-30 mg 00:00: 4hrs as [place] tablet 00 needed for Medical pain or Branch cough requiring narcotic inhalationa 2020-0 Yes [id number] Use as [facility] l spacing 2-22 directed ity of device 00:00: [place] [facility] [place] albuterol 2020-0 Yes [id number] 2{puff} Inhale 2 [facility] 90 2-22 Puffs ity of mcg/actuati 00:00: every 4 [place] as on inhaler 00 (four) Medical hours as Branch needed for Wheezing or Shortness of Breath. acetaminoph 2020-0 Yes [id number] 2 - 1 [facility] en-codeine 2-22 tab Every ity of 300-30 mg 00:00: 4hrs as [place] tablet 00 needed for Medical pain or Branch cough requiring narcotic inhalationa 2020-0 Yes [id number] Use as [facility] l spacing 2-22 directed ity of device 00:00: [place] ([facility] [place]) albuterol 2020-0 Yes [id number] 2{puff} Inhale 2 [facility] 90 2-22 Puffs ity of mcg/actuati 00:00: every 4 [place] as on inhaler 00 (four) Medical hours as Branch needed for Wheezing or Shortness of Breath. acetaminoph 2020-0 Yes [id number] 2 - 1 [facility] en-codeine 2-22 tab Every ity of 300-30 mg 00:00: 4hrs as [place] tablet 00 needed for Medical pain or Branch cough requiring narcotic inhalationa 2020-0 Yes [id number] Use as [facility] l spacing 2-22 directed ity of device 00:00: [place] (PS[facility]CHIATRIC 00 [facility] [place]) albuterol 2020-0 Yes [id number] 2{puff} Inhale 2 [facility] 90 2-22 Puffs ity of mcg/actuati 00:00: every 4 [place] as on inhaler 00 (four) Medical hours as Branch needed for Wheezing or Shortness of Breath. acetaminoph 2020-0 Yes [id number] 2 - 1 [facility] en-codeine 2-22 tab Every ity of 300-30 mg 00:00: 4hrs as [place] tablet 00 needed for Medical pain or Branch cough requiring narcotic inhalationa 2020-0 Yes [id number] Use as [facility] l spacing 2-22 directed ity of device 00:00: [place] [facility] [place] albuterol 2020-0 Yes [id number] 2{puff} Inhale 2 [facility] 90 2-22 Puffs ity of mcg/actuati 00:00: every 4 [place] as on inhaler 00 (four) Medical hours as Branch needed for Wheezing or Shortness of Breath. acetaminoph 2020-0 Yes [id number] 1/2 - 1 [facility] en-codeine 2-22 tab Every ity of 300-30 mg 00:00: 4hrs as [place] tablet 00 needed for Medical pain or Branch cough requiring narcotic inhalationa 2020-0 Yes [id number] Use as [facility] l spacing 2-22 directed ity of device 00:00: [place] (OPT[facility] 00 Medical [facility]) acetaminoph 2020-0 2020- No [id number] /2 - 1 [facility] en-codeine 2-22 09-10 tab Every ity of 300-30 mg 00:00: 00:00 4hrs [place] tablet 00 :00 needed for Medical pain or Branch cough requiring narcotic tiZANidine 2020-0 Yes [id number] 4mg Take 1-2 Univers 4 mg tablet 2-13 tablets by it y of 00:00: mouth [place] 00 every 8 Medical (eight) Branch hours as needed (muscle pain or spasm). AMLODIPINE 2020-0 Yes [id number] TAKE 1 U nivers 2.5 mg 2-13 TABLET BY ity of tablet 00:00: MOUTH [place] 00 EVERY DAY Medical Branch tiZANidine 2020-0 Yes [id number] 4mg Take 1-2 [facility] 4 mg tablet 2-13 tablets by it y of 00:00: mouth [place] 00 every 8 Medical (eight) Branch hours as needed (muscle pain or spasm). AMLODIPINE 2020-0 Yes [id number] TAKE 1 U nivers 2.5 mg 2-13 TABLET BY ity of tablet 00:00: MOUTH [place] 00 EVERY DAY Medical Branch tiZANidine 2020-0 Yes [id number] 4mg Take 1-2 [facility] 4 mg tablet 2-13 tablets by it y of 00:00: mouth [place] 00 every 8 Medical (eight) Branch hours as needed (muscle pain or spasm). AMLODIPINE 2020-0 Yes [id number] TAKE 1 U nivers 2.5 mg 2-13 TABLET BY ity of tablet 00:00: MOUTH [place] 00 EVERY DAY Medical Branch tiZANidine 2020-0 Yes [id number] 4mg Take 1-2 [facility] 4 mg tablet 2-13 tablets by it y of 00:00: mouth [place] 00 every 8 Medical (eight) Branch hours as needed (muscle pain or spasm). AMLODIPINE 2020-0 Yes [id number] TAKE 1 U nivers 2.5 mg 2-13 TABLET BY ity of tablet 00:00: MOUTH [place] 00 EVERY DAY Medical Branch tiZANidine 2020-0 Yes [id number] 4mg Take 1-2 [facility] 4 mg tablet 2-13 tablets by it y of 00:00: mouth [place] 00 every 8 Medical (eight) Branch hours as needed (muscle pain or spasm). AMLODIPINE 2020-0 Yes [id number] TAKE 1 U nivers 2.5 mg 2-13 TABLET BY ity of tablet 00:00: MOUTH [place] 00 EVERY DAY Medical Branch tiZANidine 2020-0 Yes [id number] 4mg Take 1-2 [facility] 4 mg tablet 2-13 tablets by it y of 00:00: mouth [place] 00 every 8 Medical (eight) Branch hours as needed (muscle pain or spasm). AMLODIPINE 2020-0 Yes [id number] TAKE 1 U nivers 2.5 mg 2-13 TABLET BY ity of tablet 00:00: MOUTH [place] 00 EVERY DAY Medical Branch tiZANidine 2020-0 Yes [id number] 4mg Take 1-2 [facility] 4 mg tablet 2-13 tablets by it y of 00:00: mouth [place] 00 every 8 Medical (eight) Branch hours as needed (muscle pain or spasm). AMLODIPINE 2020-0 Yes [id number] TAKE 1 U nivers 2.5 mg 2-13 TABLET BY ity of tablet 00:00: MOUTH [place] 00 EVERY DAY Medical Branch tiZANidine 2020-0 Yes [id number] 4mg Take 1-2 Univers 4 mg tablet 2-13 tablets by it y of 00:00: mouth [place] 00 every 8 Medical (eight) Branch hours as needed (muscle pain or spasm). AMLODIPINE 2020-0 Yes [id number] TAKE 1 U nivers 2.5 mg 2-13 TABLET BY ity of tablet 00:00: MOUTH [place] 00 EVERY DAY Medical Branch tiZANidine 2020-0 Yes [id number] 4mg Take 1-2 [facility] 4 mg tablet 2-13 tablets by it y of 00:00: mouth [place] 00 every 8 Medical (eight) Branch hours as needed (muscle pain or spasm). AMLODIPINE 2020-0 Yes [id number] TAKE 1 U nivers 2.5 mg 2-13 TABLET BY ity of tablet 00:00: MOUTH 00 EVERY DAY Medical Branch tiZANidine 2020-0 Yes [id number] 4mg Take 1-2 Univers 4 mg tablet 2-13 tablets by it y of 00:00: mouth [place] 00 every 8 Medical (eight) Branch hours as needed (muscle pain or spasm). AMLODIPINE 2020-0 Yes [id number] TAKE 1 [facility] 2.5 mg 2-13 TABLET BY ity of tablet 00:00: MOUTH 00 EVERY DAY Medical Branch tiZANidine 2020-0 Yes [id number] 4mg Take 1-2 [facility] 4 mg tablet 2-13 tablets by it y of 00:00: mouth 00 every 8 Medical (eight) Branch hours as needed (muscle pain or spasm). AMLODIPINE 2020-0 Yes [id number] TAKE 1 [facility] 2.5 mg 2-13 TABLET BY ity of tablet 00:00: MOUTH 00 EVERY DAY Medical Branch tiZANidine 2020-0 Yes [id number] 4mg Take 1-2 [facility] 4 mg tablet 2-13 tablets by it y of 00:00: mouth [place] 00 every 8 Medical (eight) Branch hours as needed (muscle pain or spasm). AMLODIPINE 2020-0 Yes [id number] TAKE 1 [facility] 2.5 mg 2-13 TABLET BY ity of tablet 00:00: MOUTH [place] 00 EVERY DAY Medical Branch AMLODIPINE 2020-0 Yes [id number] TAKE 1 [facility] 2.5 mg 2-13 TABLET BY ity of tablet 00:00: MOUTH [place] 00 EVERY DAY Medical Branch AMLODIPINE 2020-0 Yes [id number] TAKE 1 [facility] 2.5 mg 2-13 TABLET BY ity of tablet 00:00: MOUTH [place] 00 EVERY DAY Medical Branch AMLODIPINE 2020-0 Yes [id number] TAKE 1 [facility] 2.5 mg 2-13 TABLET BY ity of tablet 00:00: MOUTH [place] 00 EVERY DAY Medical Branch AMLODIPINE 2020-0 Yes [id number] TAKE 1 [facility] 2.5 mg 2-13 TABLET BY ity of tablet 00:00: MOUTH [place] 00 EVERY DAY Medical Branch AMLODIPINE 2020-0 Yes [id number] TAKE 1 [facility] 2.5 mg 2-13 TABLET BY ity of tablet 00:00: MOUTH [place] 00 EVERY DAY Medical Branch AMLODIPINE 2020-0 Yes [id number] TAKE 1 [facility] 2.5 mg 2-13 TABLET BY ity of tablet 00:00: MOUTH [place] 00 EVERY DAY Medical Branch AMLODIPINE 2020-0 Yes [id number] TAKE 1 [facility] 2.5 mg 2-13 TABLET BY ity of tablet 00:00: MOUTH [place] 00 EVERY DAY Medical Branch AMLODIPINE 2020-0 Yes [id number] TAKE 1 [facility] 2.5 mg 2-13 TABLET BY ity of tablet 00:00: MOUTH 00 EVERY DAY Medical Branch AMLODIPINE 2020-0 Yes [id number] TAKE 1 [facility] 2.5 mg 2-13 TABLET BY ity of tablet 00:00: MOUTH [place] 00 EVERY DAY Medical Branch AMLODIPINE 2020-0 Yes [id number] TAKE 1 [facility] 2.5 mg 2-13 TABLET BY ity of tablet 00:00: MOUTH 00 EVERY DAY Medical Branch AMLODIPINE 2020-0 Yes [id number] TAKE 1 [facility] 2.5 mg 2-13 TABLET BY ity of tablet 00:00: MOUTH 00 EVERY DAY Medical Branch AMLODIPINE 2020-0 Yes [id number] TAKE 1 [facility] 2.5 mg 2-13 TABLET BY ity of tablet 00:00: MOUTH 00 EVERY DAY Medical Branch AMLODIPINE 2020-0 Yes [id number] TAKE 1 [facility] 2.5 mg 2-13 TABLET BY ity of tablet 00:00: MOUTH 00 EVERY DAY Medical Branch AMLODIPINE 2020-0 Yes [id number] TAKE 1 [facility] 2.5 mg 2-13 TABLET BY ity of tablet 00:00: MOUTH 00 EVERY DAY Medical Branch AMLODIPINE 2020-0 Yes [id number] TAKE 1 [facility] 2.5 mg 2-13 TABLET BY ity of tablet 00:00: MOUTH 00 EVERY DAY Medical Branch AMLODIPINE 2020-0 Yes [id number] TAKE 1 [facility] 2.5 mg 2-13 TABLET BY ity of tablet 00:00: MOUTH 00 EVERY DAY Medical Branch AMLODIPINE 2020-0 Yes [id number] TAKE 1 [facility] 2.5 mg 2-13 TABLET BY ity of tablet 00:00: MOUTH [place] 00 EVERY DAY Medical Branch tiZANidine 2020-0 Yes [id number] 4mg Take 1-2 [facility] 4 mg tablet 2-13 tablets by it y of 00:00: mouth 00 every 8 Medical (eight) Branch hours as needed (muscle pain or spasm). amLODIPine 2020-0 Yes [id number] 2.5mg Take 1 [facility] 2.5 mg 2-13 tablet by ity of tablet 00:00: mouth [place] 00 daily. Medical Branch tiZANidine 2020-0 Yes [id number] 4mg Take 1-2 [facility] 4 mg tablet 2-13 tablets by it y of 00:00: mouth [place] 00 every 8 Medical (eight) Branch hours as needed (muscle pain or spasm). AMLODIPINE 2020-0 Yes [id number] TAKE 1 [facility] 2.5 mg 2-13 TABLET BY ity of tablet 00:00: MOUTH [place] 00 EVERY DAY Medical Branch tiZANidine 2020-0 Yes [id number] 4mg Take 1-2 [facility] 4 mg tablet 2-13 tablets by it y of 00:00: mouth [place] 00 every 8 Medical (eight) Branch hours as needed (muscle pain or spasm). AMLODIPINE 2020-0 Yes [id number] TAKE 1 [facility] 2.5 mg 2-13 TABLET BY ity of tablet 00:00: MOUTH [place] 00 EVERY DAY Medical Branch tiZANidine 2020-0 Yes [id number] 4mg Take 1-2 [facility] 4 mg tablet 2-13 tablets by it y of 00:00: mouth [place] 00 every 8 Medical (eight) Branch hours as needed (muscle pain or spasm). AMLODIPINE 2020-0 Yes [id number] TAKE 1 [facility] 2.5 mg 2-13 TABLET BY ity of tablet 00:00: MOUTH [place] 00 EVERY DAY Medical Branch tiZANidine 2020-0 Yes [id number] 4mg Take 1-2 [facility] 4 mg tablet 2-13 tablets by it y of 00:00: mouth [place] 00 every 8 Medical (eight) Branch hours as needed (muscle pain or spasm). AMLODIPINE 2020-0 Yes [id number] TAKE 1 [facility] 2.5 mg 2-13 TABLET BY ity of tablet 00:00: MOUTH [place] 00 EVERY DAY Medical Branch tiZANidine 2020-0 Yes [id number] 4mg Take 1-2 [facility] 4 mg tablet 2-13 tablets by it y of 00:00: mouth [place] 00 every 8 Medical (eight) Branch hours as needed (muscle pain or spasm). tiZANidine 2020-0 Yes [id number] 4mg Take 1-2 [facility] 4 mg tablet 2-13 tablets by it y of 00:00: mouth [place] 00 every 8 Medical (eight) Branch hours as needed (muscle pain or spasm). tiZANidine 2020-0 Yes [id number] 4mg Take 1-2 [facility] 4 mg tablet 2-13 tablets by it y of 00:00: mouth [place] 00 every 8 Medical (eight) Branch hours as needed (muscle pain or spasm). AMLODIPINE 2020-0 Yes [id number] TAKE 1 [facility] 2.5 mg 2-13 TABLET BY ity of tablet 00:00: MOUTH [place] 00 EVERY DAY Medical Branch tiZANidine 2020-0 Yes [id number] 4mg Take 1-2 [facility] 4 mg tablet 2-13 tablets by it y of 00:00: mouth [place] 00 every 8 Medical (eight) Branch hours as needed (muscle pain or spasm). AMLODIPINE 2020-0 Yes [id number] TAKE 1 [facility] 2.5 mg 2-13 TABLET BY ity of tablet 00:00: MOUTH [place] 00 EVERY DAY Medical Branch tiZANidine 2020-0 Yes [id number] 4mg Take 1-2 [facility] 4 mg tablet 2-13 tablets by it y of 00:00: mouth [place] 00 every 8 Medical (eight) Branch hours as needed (muscle pain or spasm). AMLODIPINE 2020-0 Yes [id number] TAKE 1 [facility] 2.5 mg 2-13 TABLET BY ity of tablet 00:00: MOUTH [place] 00 EVERY DAY Medical Branch tiZANidine 2020-0 Yes [id number] 4mg Take 1-2 [facility] 4 mg tablet 2-13 tablets by it y of 00:00: mouth [place] 00 every 8 Medical (eight) Branch hours as needed (muscle pain or spasm). AMLODIPINE 2020-0 Yes [id number] TAKE 1 [facility] 2.5 mg 2-13 TABLET BY ity of tablet 00:00: MOUTH [place] 00 EVERY DAY Medical Branch tiZANidine 2020-0 Yes [id number] 4mg Take 1-2 [facility] 4 mg tablet 2-13 tablets by it y of 00:00: mouth [place] 00 every 8 Medical (eight) Branch hours as needed (muscle pain or spasm). AMLODIPINE 2020-0 Yes [id number] TAKE 1 [facility] 2.5 mg 2-13 TABLET BY ity of tablet 00:00: MOUTH [place] 00 EVERY DAY Medical Branch tiZANidine 2020-0 Yes [id number] 4mg Take 1-2 [facility] 4 mg tablet 2-13 tablets by it y of 00:00: mouth [place] 00 every 8 Medical (eight) Branch hours as needed (muscle pain or spasm). AMLODIPINE 2020-0 Yes [id number] TAKE 1 [facility] 2.5 mg 2-13 TABLET BY ity of tablet 00:00: MOUTH [place] 00 EVERY DAY Medical Branch tiZANidine 2020-0 Yes [id number] 4mg Take 1-2 [facility] 4 mg tablet 2-13 tablets by it y of 00:00: mouth [place] 00 every 8 Medical (eight) Branch hours as needed (muscle pain or spasm). AMLODIPINE 2020-0 Yes [id number] TAKE 1 [facility] 2.5 mg 2-13 TABLET BY ity of tablet 00:00: MOUTH [place] 00 EVERY DAY Medical Branch AMLODIPINE 2020-0 2020- No [id number] TAKE 1 [facility] 2.5 mg 2-13 -21 TABLET BY ity of tablet 00:00: 00:00 MOUTH [place] 00 :00 EVERY DAY Medical Branch AMLODIPINE 2020-0 2020- No [id number] TAKE 1 [facility] 2.5 mg 2-13 -21 TABLET BY ity of tablet 00:00: 00:00 MOUTH [place] 00 :00 EVERY DAY Medical Branch tiZANidine 2020-0 2020- No [id number] 4mg Take 1-2 [facility] 4 mg tablet 2-13 05-07 tablets by i ty of 00:00: 00:00 mouth [place] 00 :00 every 8 Medical (eight) Branch hours as needed (muscle pain or spasm). amLODIPine 2020-0 2020- No [id number] 2.5mg Take 1 [facility] 2.5 mg 2-13 -13 tablet by ity of tablet 00:00: 00:00 mouth [place] 00 :00 daily. Medical Branch amLODIPine 2020-0 2020- No [id number] 2.5mg Take 1 [facility] 2.5 mg 2-13 -13 tablet by ity of tablet 00:00: 00:00 mouth [place] 00 :00 daily. Medical Branch amLODIPine 2020-0 2020- No [id number] 2.5mg Take 1 [facility] 2.5 mg 2-13 -13 tablet by ity of tablet 00:00: 00:00 mouth [place] 00 :00 daily. Medical Branch alcaftadine 2019-[address] in [facility] (LASTACAFT) 1-06 each eye. ity of 0.25 % Drop 18:01: [place] 24 Medical Branch CYCLOSPORIN 2020-[address] in [facility] E (RESTASIS 1-06 each eye. ity of OPHTHALMIC) 18:01: Medical Branch ASCORBATE 2020-0 Yes Take by [facility] ers CALCIUM 1-06 mouth. ity of (VITAMIN C 18:01: [place] ORAL) 24 Medical Branch DOCOSAHEXAN 2020-0 Yes Take by [facility] [place] OIC 1-06 mouth. ity of ACID/EPA 18:01: [place] (FISH OIL 24 Medical ORAL) Branch vitamin [...] 1-06 mouth. ity of ITAMIN D3 18:01: [place] (VITAMIN Medical D-3 ORAL) Branch alcaftadine 2020-0 [...] OIC 1-06 mouth. ity of ACID/EPA 18:: [place] (FISH OIL 24 Medical ORAL) Branch vitamin [...] 1-06 mouth. ity of ITAMIN D3 18:01: [place] (VITAMIN 24 Medical D-3 ORAL) Branch alcaftadine [...] OIC 1-06 mouth. ity of ACID/EPA 18:01: [place] (FISH OIL 24 Medical ORAL) Branch vitamin E 2020-0 Yes 1000U Take 1,000 [facility] 1,000 unit 1-06 Units by ity o f capsule 18:01: mouth [place] 24 daily. Medical Branch Magnesium 2020-[address] [facility] ers 250 mg Tab 1-06 mouth. ity of 18:01: Medical Branch vitamin B-6 2020-0 Yes 100mg Take 100 [facility] (VITAMIN 1-06 mg by ity of B-6) 100 mg 18:01: mouth [place] tablet 24 daily. Medical Branch CALCIUM 2020-[address] [facility] CARBON[facility]/V 1-06 mouth. ity of ITAMIN D3 18:01: [place] (VITAMIN 24 Medical D-3 ORAL) Branch alcaftadine [...] OIC 1-06 mouth. ity of ACID/EPA 18:01: [place] (FISH OIL 24 Medical ORAL) Branch vitamin [...] 1-06 mouth. ity of ITAMIN D3 18:01: [place] (VITAMIN 24 Medical D-3 ORAL) Branch alcaftadine [...] OIC 1-06 mouth. ity of ACID/EPA 18:01: [place] (FISH OIL 24 Medical ORAL) Branch vitamin [...] 1-06 mouth. ity of ITAMIN D3 18:01: [place] (VITAMIN 24 Medical D-3 ORAL) Branch alcaftadine [...] OIC 1-06 mouth. ity of ACID/EPA 18:01: [place] (FISH OIL 24 Medical ORAL) Branch vitamin [...] 1-06 mouth. ity of ITAMIN D3 18:: [place] (VITAMIN 24 Medical D-3 ORAL) Branch alcaftadine [...] OIC 1-06 mouth. ity of ACID/EPA 18:01: [place] (FISH OIL 24 Medical ORAL) Branch vitamin [...] 1-06 mouth. ity of ITAMIN D3 18:01: [place] (VITAMIN 24 Medical D-3 ORAL) Branch alcaftadine [...] OIC 1-06 mouth. ity of ACID/EPA 18:01: [place] (FISH OIL 24 Medical ORAL) Branch vitamin [...] 1-06 mouth. ity of ITAMIN D3 18:01: [place] (VITAMIN 24 Medical D-3 ORAL) Branch alcaftadine [...] OIC 1-06 mouth. ity of ACID/EPA 18:01: [place] (FISH OIL 24 Medical ORAL) Branch vitamin [...] 1-06 mouth. ity of ITAMIN D3 18:01: (VITAMIN 24 Medical D-3 ORAL) Branch alcaftadine [...] OIC 1-06 mouth. ity of ACID/EPA 18:01: (FISH OIL 24 Medical ORAL) Branch vitamin [...] 1-06 mouth. ity of ITAMIN D3 18:01: (VITAMIN 24 Medical D-3 ORAL) Branch alcaftadine 2020-[address] in [facility] (LASTACAFT) 1-06 each eye. ity of 0.25 % Drop 18:01: Medical Branch CYCLOSPORIN 2020-[address] in [facility] E (RESTASIS 1-06 each eye. ity of OPHTHALMIC) 18:01: 24 Medical Branch ASCORBATE 2020-0 Yes Take by Univ ers CALCIUM 1-06 mouth. ity of (VITAMIN C 18:01: [place] ORAL) 24 Medical Branch DOCOSAHEXAN 2020-0 Yes Take by [facility] [place] OIC 1-06 mouth. ity of ACID/EPA 18:01: [place] (FISH OIL 24 Medical ORAL) Branch vitamin [...] 1-06 mouth. ity of ITAMIN D3 18:01: [place] (VITAMIN 24 Medical D-3 ORAL) Branch alcaftadine [...] OIC 1-06 mouth. ity of ACID/EPA 18:: [place] (FISH OIL 24 Medical ORAL) Branch vitamin [...] 1-06 mouth. ity of ITAMIN D3 18:01: [place] (VITAMIN 24 Medical D-3 ORAL) Branch alcaftadine [...] OIC 1-06 mouth. ity of ACID/EPA 18:01: (FISH OIL 24 Medical ORAL) Branch vitamin [...] Medical Branch CALCIUM 2020-[address] [facility] CARBON[facility]/V 1-06 mouth. ity of ITAMIN D3 18:01: (VITAMIN 24 Medical D-3 ORAL) Branch alcaftadine 2020-[address] in [facility] (LASTACAFT) 1-06 each eye. ity of 0.25 % Drop 18:01: Medical Branch CYCLOSPORIN 2020-[address] in [facility] E (RESTASIS 1-06 each eye. ity of OPHTHALMIC) 18:01: Medical Branch ASCORBATE 2020-[address] [facility] ers CALCIUM 1-06 mouth. ity of (VITAMIN C 18:01: [place] ORAL) 24 Medical Branch DOCOSAHEXAN 2020-0 Yes Take by [facility] [place] OIC 1-06 mouth. ity of ACID/EPA 18:01: (FISH OIL 24 Medical ORAL) Branch vitamin [...] [place] tablet 24 daily. Medical Branch CALCIUM Yes Take by [facility] CARBONATE/V 1-06 mouth. ity of ITAMIN D3 18:01: [place] (VITAMIN 24 Medical D-3 ORAL) Branch [facility] [id number] TAKE 2 [facility] -HYDROCHLOR 2-02 TABLETS BY it y of OTHIAZID 00:00: MOUTH [place] 37.5-25 mg 00 DAILY. Medical tablet Branch [facility] Yes [id number] TAKE 2 [facility] -HYDROCHLOR 2-02 TABLETS BY it y of OTHIAZID 00:00: MOUTH [place] 37.5-25 mg 00 DAILY. Medical tablet Branch [facility] Yes [id number] TAKE 2 [facility] -HYDROCHLOR 2-02 TABLETS BY it y of OTHIAZID 00:00: MOUTH [place] 37.5-25 mg 00 DAILY. Medical [facility] [id number] TA[facility] 2 [facility] -HYDROCHLOR 2-02 TABLETS BY it y of OTHIAZID 00:00: MOUTH [place] 37.5-25 mg 00 DAILY. Medical [facility] Yes [id number] TAKE 2 [facility] -HYDROCHLOR 2-02 TABLETS BY it y of OTHIAZID 00:00: MOUTH [place] 37.5-25 mg 00 DAILY. Medical tablet Branch [facility] Yes [id number] TAKE 2 [facility] -HYDROCHLOR 2-02 TABLETS BY it y of OTHIAZID 00:00: MOUTH [place] 37.5-25 mg 00 DAILY. Medical tablet [facility] Yes [id number] TAKE 2 [facility] -HYDROCHLOR 2-02 TABLETS BY it y of OTHIAZID 00:00: MOUTH [place] 37.5-25 mg 00 DAILY. Medical tablet Branch [facility] Yes [id number] TAKE 2 [facility] -HYDROCHLOR 2-02 TABLETS BY it y of OTHIAZID 00:00: MOUTH [place] 37.5-25 mg 00 DAILY. Medical tablet Branch [facility] Yes [id number] TAKE 2 [facility] -HYDROCHLOR 2-02 TABLETS BY it y of OTHIAZID 00:00: MOUTH [place] 37.5-25 mg 00 DAILY. Medical tablet Branch [facility] Yes [id number] TAKE 2 [facility] -HYDROCHLOR 2-02 TABLETS BY it y of OTHIAZID 00:00: MOUTH [place] 37.5-25 mg 00 DAILY. Medical tablet Branch [facility] 2018-09 Yes [id number] TAKE 2 Univers -HYDROCHLOR 2-02 TABLETS BY it y of OTHIAZID 00:00: MOUTH [place] 37.5-25 mg 00 DAILY. Medical tablet Branch [facility] 2018-09 Yes [id number] TAKE 2 Univers -HYDROCHLOR 2-02 TABLETS BY it y of OTHIAZID 00:00: MOUTH [place] 37.5-25 mg 00 DAILY. Medical tablet Branch [facility] 2018-09 Yes [id number] TAKE 2 [facility] -HYDROCHLOR 2-02 TABLETS BY it y of OTHIAZID 00:00: MOUTH [place] 37.5-25 mg 00 DAILY. Medical tablet Branch [facility] 2018-09 Yes [id number] TAKE 2 [facility] -HYDROCHLOR 2-02 TABLETS BY it y of OTHIAZID 00:00: MOUTH [place] 37.5-25 mg 00 DAILY. Medical tablet Branch [facility] 2018-09 Yes [id number] TAKE 2 [facility] -HYDROCHLOR 2-02 TABLETS BY it y of OTHIAZID 00:00: MOUTH [place] 37.5-25 mg 00 DAILY. Medical tablet Branch [facility] 2018-09 Yes [id number] TAKE 2 [facility] -HYDROCHLOR 2-02 TABLETS BY it y of OTHIAZID 00:00: MOUTH [place] 37.5-25 mg 00 DAILY. Medical tablet Branch [facility] 2018-09 Yes [id number] TAKE 2 [facility] -HYDROCHLOR 2-02 TABLETS BY it y of OTHIAZID 00:00: MOUTH [place] 37.5-25 mg 00 DAILY. Medical tablet Branch [facility] 2018-09 Yes [id number] TAKE 2 [facility] -HYDROCHLOR 2-02 TABLETS BY it y of OTHIAZID 00:00: MOUTH [place] 37.5-25 mg 00 DAILY. Medical tablet Branch [facility] 2018-09 Yes [id number] TAKE 2 [facility] -HYDROCHLOR 2-02 TABLETS BY it y of OTHIAZID 00:00: MOUTH [place] 37.5-25 mg 00 DAILY. Medical tablet Branch [facility] 2018-09 Yes [id number] TAKE 2 Univers -HYDROCHLOR 2-02 TABLETS BY it y of OTHIAZID 00:00: MOUTH [place] 37.5-25 mg 00 DAILY. Medical tablet [facility] 2018-09 Yes [id number] TAKE 2 Univers -HYDROCHLOR 2-02 TABLETS BY it y of OTHIAZID 00:00: MOUTH [place] 37.5-25 mg 00 DAILY. Medical tablet Branch [facility] Yes [id number] TAKE 2 [facility] -HYDROCHLOR 2-02 TABLETS BY it y of OTHIAZID 00:00: MOUTH [place] 37.5-25 mg 00 DAILY. Medical tablet Branch [facility] Yes [id number] TAKE 2 [facility] -HYDROCHLOR 2-02 TABLETS BY it y of OTHIAZID 00:00: MOUTH [place] 37.5-25 mg 00 DAILY. Medical tablet Branch [facility] Yes [id number] TAKE 2 [facility] -HYDROCHLOR 2-02 TABLETS BY it y of OTHIAZID 00:00: MOUTH [place] 37.5-25 mg 00 DAILY. Medical tablet Branch [facility] Yes [id number] TAKE 2 [facility] -HYDROCHLOR 2-02 TABLETS BY it y of OTHIAZID 00:00: MOUTH [place] 37.5-25 mg 00 DAILY. Medical tablet Branch [facility] Yes [id number] TAKE 2 [facility] -HYDROCHLOR 2-02 TABLETS BY it y of OTHIAZID 00:00: MOUTH [place] 37.5-25 mg 00 DAILY. Medical tablet Branch [facility] Yes [id number] TAKE 2 [facility] -HYDROCHLOR 2-02 TABLETS BY it y of OTHIAZID 00:00: MOUTH [place] 37.5-25 mg 00 DAILY. Medical tablet Branch [facility] Yes [id number] TAKE 2 Univers -HYDROCHLOR 2-02 TABLETS BY it y of OTHIAZID 00:00: MOUTH [place] 37.5-25 mg 00 DAILY. [facility] Yes [id number] TAKE 2 [facility] -HYDROCHLOR 2-02 TABLETS BY it y of OTHIAZID 00:00: MOUTH [place] 37.5-25 mg 00 DAILY. Medical tablet Branch tiZANidine 2018-09 Yes [id number] 2mg Take 1-2 [facility] 2 mg tablet 1-20 tablets by it y of 00:00: mouth [place] 00 every 8 Medical (eight) Branch hours as needed (muscle pain or spasm). tiZANidine 2018-09 Yes [id number] 2mg Take 1-2 [facility] 2 mg tablet 1-20 tablets by it y of 00:00: mouth [place] 00 every 8 Medical (eight) Branch hours as needed (muscle pain or spasm). tiZANidine 2018-09 2020- No [id number] 2mg Take 1-2 [facility] 2 mg tablet 20 - tablets by i ty of 00:00: 00:00 mouth [place] 00 :00 every 8 Medical (eight) Branch hours as needed (muscle pain or spasm). tiZANidine 2018-09 2020- No [id number] 2mg Take 1-2 [facility] 2 mg tablet -20 - tablets by i ty of 00:00: 00:00 mouth [place] 00 :00 every 8 Medical (eight) Branch hours as needed (muscle pain or spasm). TRAZODONE 2018-09 Yes [id number] 100mg TAKE 1 [facility] 100 mg 0-08 TABLET BY ity of tablet 00:00: MOUTH AT [place] [address] BEDTIME. Medical FOR Branch INSOMNIA. TRAZODONE 2018-09 Yes [id number] 100mg TAKE 1 [facility] 100 mg 0-08 TABLET BY ity of tablet 00:00: MOUTH AT [place] [address] BEDTIME. Medical FOR Branch INSOMNIA. TRAZODONE 2018-09 Yes [id number] 100mg TAKE 1 [facility] 100 mg 0-08 TABLET BY ity of tablet 00:00: MOUTH AT [place] [address] BEDTIME. Medical FOR Branch INSOMNIA. TRAZODONE 2018-09 Yes [id number] 100mg TAKE 1 [facility] 100 mg 0-08 TABLET BY ity of tablet 00:00: MOUTH AT [place] 00 BEDTIME. Medical FOR Branch INSOMNIA. TRAZODONE 2018-09 Yes [id number] 100mg TAKE 1 [facility] 100 mg 0-08 TABLET BY ity of tablet 00:00: MOUTH AT [place] [address] BEDTIME. Medical FOR Branch INSOMNIA. TRAZODONE 2018-09 Yes [id number] 100mg TAKE 1 [facility] 100 mg 0-08 TABLET BY ity of tablet 00:00: MOUTH AT [place] [address] BEDTIME. Medical FOR Branch INSOMNIA. TRAZODONE 2018-09 Yes [id number] 100mg TAKE 1 [facility] 100 mg 0-08 TABLET BY ity of tablet 00:00: MOUTH AT [place] 00 BEDTIME. Medical FOR Branch INSOMNIA. TRAZODONE 2018-09 Yes [id number] 100mg TAKE 1 [facility] 100 mg 0-08 TABLET BY ity of tablet 00:00: MOUTH AT [place] [address] BEDTIME. Medical FOR Branch INSOMNIA. TRAZODONE 2018-09 Yes [id number] 100mg TAKE 1 [facility] 100 mg 0-08 TABLET BY ity of tablet 00:00: MOUTH AT [place] 00 BEDTIME. Medical FOR Branch INSOMNIA. TRAZODONE 2018-09 Yes [id number] 100mg TAKE 1 [facility] 100 mg 0-08 TABLET BY ity of tablet 00:00: MOUTH AT [place] 00 BEDTIME. Medical FOR Branch INSOMNIA. TRAZODONE 2018-09 Yes [id number] 100mg TAKE 1 [facility] 100 mg 0-08 TABLET BY ity of tablet 00:00: MOUTH AT [place] 00 BEDTIME. Medical FOR Branch INSOMNIA. TRAZODONE 2018-09 Yes [id number] 100mg TAKE 1 [facility] 100 mg 0-08 TABLET BY ity of tablet 00:00: MOUTH AT [place] 00 BEDTIME. Medical FOR Branch INSOMNIA. TRAZODONE 2018-09 Yes [id number] 100mg TAKE 1 [facility] 100 mg 0-08 TABLET BY ity of tablet 00:00: MOUTH AT [place] 00 BEDTIME. Medical FOR Branch INSOMNIA. TRAZODONE 2018-09 Yes [id number] 100mg TAKE 1 [facility] 100 mg 0-08 TABLET BY ity of tablet 00:00: MOUTH AT [place] [address] BEDTIME. Medical FOR Branch INSOMNIA. TRAZODONE 2018-09 Yes [id number] 100mg TAKE 1 [facility] 100 mg 0-08 TABLET BY ity of tablet 00:00: MOUTH AT [place] [address] BEDTIME. Medical FOR Branch INSOMNIA. TRAZODONE 2018-09 Yes [id number] 100mg TAKE 1 [facility] 100 mg 0-08 TABLET BY ity of tablet 00:00: MOUTH AT [place] [address] BEDTIME. Medical FOR Branch INSOMNIA. TRAZODONE 2018-09 Yes [id number] 100mg TAKE 1 [facility] 100 mg 0-08 TABLET BY ity of tablet 00:00: MOUTH AT [place] [address] BEDTIME. Medical FOR Branch INSOMNIA. TRAZODONE 2018-09 Yes [id number] 100mg TAKE 1 [facility] 100 mg 0-08 TABLET BY ity of tablet 00:00: MOUTH AT [place] [address] BEDTIME. Medical FOR Branch INSOMNIA. TRAZODONE 2018-09 Yes [id number] 100mg TAKE 1 [facility] 100 mg 0-08 TABLET BY ity of tablet 00:00: MOUTH AT [place] 00 BEDTIME. Medical FOR Branch INSOMNIA. TRAZODONE 2018-09 Yes [id number] 100mg TAKE 1 [facility] 100 mg 0-08 TABLET BY ity of tablet 00:00: MOUTH AT [place] 00 BEDTIME. Medical FOR Branch INSOMNIA. TRAZODONE 2019-1 2020- No [id number] 100mg TAKE 1 [facility] 100 mg 0-08 04-06 TABLET BY ity of tablet 00:00: 00:00 MOUTH AT [place] 00 :00 BEDTIME. Medical FOR Branch INSOMNIA. cyclobenzap Yes [id number] 10mg Take 1 [facility] rine 10 mg 9-30 tablet by ity of tablet 00:00: mouth 3 00 (three) Medical times Branch daily. cyclobenzap Yes [id number] 10mg Take 1 [facility] rine 10 mg 9-30 tablet by ity of tablet 00:00: mouth 3 (three) Medical times Branch daily. cyclobenzap Yes [id number] 10mg Take 1 [facility] rine 10 mg 9-30 tablet by ity of tablet 00:00: mouth 3 (three) Medical times Branch daily. cyclobenzap Yes [id number] 10mg Take 1 [facility] rine 10 mg 9-30 tablet by ity of tablet 00:00: mouth 3 (three) Medical times Branch daily. cyclobenzap Yes [id number] 10mg Take 1 [facility] rine 10 mg 9-30 tablet by ity of tablet 00:00: mouth 3 (three) Medical times Branch daily. cyclobenzap Yes [id number] 10mg Take 1 [facility] rine 10 mg 9-30 tablet by ity of tablet 00:00: mouth 3 (three) Medical times Branch daily. cyclobenzap Yes [id number] 10mg Take 1 [facility] rine 10 mg 9-30 tablet by ity of tablet 00:00: mouth 3 (three) Medical times Branch daily. cyclobenzap Yes [id number] 10mg Take 1 [facility] rine 10 mg 9-30 tablet by ity of tablet 00:00: mouth 3 (three) Medical times Branch daily. cyclobenzap 2018- Yes [id number] 10mg Take 1 [facility] rine 10 mg 9-30 tablet by ity of tablet 00:00: mouth 3 (three) Medical times Branch daily. cyclobenzap Yes [id number] 10mg Take 1 [facility] rine 10 mg 9-30 tablet by ity of tablet 00:00: mouth 3 (three) Medical times Branch daily. cyclobenzap Yes [id number] 10mg Take 1 [facility] rine 10 mg 9-30 tablet by ity of tablet 00:00: mouth 3 (three) Medical times Branch daily. cyclobenzap Yes [id number] 10mg Take 1 [facility] rine 10 mg 9-30 tablet by ity of tablet 00:00: mouth 3 (three) Medical times Branch daily. cyclobenzap Yes [id number] 10mg Take 1 [facility] rine 10 mg 9-30 tablet by ity of tablet 00:00: mouth 3 (three) Medical times Branch daily. cyclobenzap Yes [id number] 10mg Take 1 [facility] rine 10 mg 9-30 tablet by ity of tablet 00:00: mouth 3 (three) Medical times Branch daily. cyclobenzap Yes [id number] 10mg Take 1 [facility] rine 10 mg 9-30 tablet by ity of tablet 00:00: mouth 3 (three) Medical times Branch daily. cyclobenzap Yes [id number] 10mg Take 1 [facility] rine 10 mg 9-30 tablet by ity of tablet 00:00: mouth (three) Medical times Branch daily. cyclobenzap Yes [id number] 10mg Take 1 [facility] rine 10 mg 9-30 tablet by [facility] tablet 00:00: mouth (three) Medical times Branch daily. cyclobenzap Yes [id number] 10mg Take 1 [facility] r[facility] 10 mg 9-30 tablet by [facility] tablet 00:00: mouth 3 (three) Medical times [facility] daily. cyclobenzap Yes [id number] 10mg Take 1 [facility] r[facility] 10 mg 9-30 tablet by [facility] tablet 00:00: mouth 3 (three) Medical times [facility] daily. cyclobenzap Yes [id number] 10mg Take 1 [facility] r[facility] 10 mg 9-30 tablet by [facility] tablet 00:00: mouth 3 (three) Medical times [facility] daily. cyclobenzap Yes [id number] 10mg Take 1 [facility] r[facility] 10 mg 9-30 tablet by [facility] tablet 00:00: mouth 3 (three) Medical times [facility] daily. cyclobenzap Yes [id number] 10mg Take 1 [facility] r[facility] 10 mg 9-30 tablet by [facility] tablet 00:00: mouth 3 (three) Medical times [facility] daily. cyclobenzap Yes [id number] 10mg Take 1 [facility] r[facility] 10 mg 9-30 tablet by [facility] tablet 00:00: mouth 3 (three) Medical times [facility] daily. cyclobenzap Yes [id number] 10mg Take 1 [facility] r[facility] 10 mg 9-30 tablet by [facility] tablet 00:00: mouth 3 (three) Medical times [facility] daily. cyclobenzap Yes [id number] 10mg Take 1 [facility] r[facility] 10 mg 9-30 tablet by [facility] tablet 00:00: mouth 3 (three) Medical times [facility] daily. cyclobenzap Yes [id number] 10mg Take 1 [facility] r[facility] 10 mg 9-30 tablet by [facility] tablet 00:00: mouth 3 (three) Medical times [facility] daily. cyclobenzap Yes [id number] 10mg Take 1 [facility] r[facility] 10 mg 9-30 tablet by [facility] tablet 00:00: mouth (three) Medical times [facility] daily. cyclobenzap Yes [id number] 10mg Take 1 [facility] r[facility] 10 mg 9-30 tablet by [facility] tablet 00:00: mouth 3 (three) Medical times [facility] daily. cyclobenzap Yes [id number] 10mg Take 1 [facility] r[facility] 10 mg 9-30 tablet by [facility] tablet 00:00: mouth 3 (three) Medical times [facility] daily. cyclobenzap Yes [id number] 10mg Take 1 [facility] r[facility] 10 mg 9-30 tablet by [facility] tablet 00:00: mouth 3 (three) Medical times [facility] daily. cyclobenzap Yes [id number] 10mg Take 1 [facility] r[facility] 10 mg 9-30 tablet by [facility] tablet 00:00: mouth 3 (three) Medical times [facility] daily. cyclobenzap Yes [id number] 10mg Take 1 [facility] r[facility] 10 mg 9-30 tablet by [facility] tablet 00:00: mouth 3 (three) Medical times [facility] daily. cyclobenzap Yes [id number] 10mg Take 1 [facility] r[facility] 10 mg 9-30 tablet by [facility] tablet 00:00: mouth 3 00 (three) Medical times [facility] daily. cyclobenzap Yes [id number] 10mg Take 1 [facility] r[facility] 10 mg 9-30 tablet by [facility] tablet 00:00: mouth 3 00 (three) Medical times [facility] daily. cyclobenzap Yes [id number] 10mg Take 1 [facility] r[facility] 10 mg 9-30 tablet by [facility] tablet 00:00: mouth 3 00 (three) Medical times [facility] daily. cyclobenzap Yes [id number] 10mg Take 1 [facility] r[facility] 10 mg 9-30 tablet by [facility] tablet 00:00: mouth 3 (three) Medical times [facility] daily. cyclobenzap Yes [id number] 10mg Take 1 [facility] r[facility] 10 mg 9-30 tablet by [facility] tablet 00:00: mouth 3 (three) Medical times [facility] daily. cyclobenzap Yes [id number] 10mg Take 1 [facility] r[facility] 10 mg 9-30 tablet by [facility] tablet 00:00: mouth 3 (three) Medical times [facility] daily. cyclobenzap Yes [id number] 10mg Take 1 [facility] r[facility] 10 mg 9-30 tablet by [facility] tablet 00:00: mouth 3 (three) Medical times [facility] daily. METFORMIN Yes [id number] TAKE 1 [facility] [place] [facility] 500 mg 9-30 TABLET BY [facility] o f 24 hr 00:00: MOUTH [place] tablet 00 EVERY DAY Medical WITH Branch BREAKFAST naproxen Yes [id number] 500mg Take 1 [facility] (NAPROSYN) 9-30 tablet by [facility] 500 mg 00:00: mouth 2 [place] tablet 00 (two) Medical times [facility] daily with meals. cyclobenzap Yes [id number] 10mg Take 1 [facility] rine 10 mg 9-30 tablet by [facility] tablet 00:00: mouth 3 [place] 00 (three) Medical times [facility] daily. METFORMIN Yes [id number] TAKE 1 [facility] [place] [facility] 500 mg 9-30 TABLET BY [facility] o f 24 hr 00:00: MOUTH [place] tablet 00 EVERY DAY Medical WITH Branch BREAKFAST naproxen 2018- Yes [id number] 500mg Take 1 [facility] (NAPROSYN) 9-30 tablet by [facility] 500 mg 00:00: mouth 2 [place] tablet 00 (two) Medical times [facility] daily with meals. cyclobenzap Yes [id number] 10mg Take 1 [facility] rine 10 mg 9-30 tablet by [facility] tablet 00:00: mouth 3 [place] 00 (three) Medical times [facility] daily. METFORMIN 2018- Yes [id number] TAKE 1 [facility] [place] [facility] 500 mg 9-30 TABLET BY [facility] o f 24 hr 00:00: MOUTH [place] tablet 00 EVERY DAY Medical WITH Branch BREAKFAST cyclobenzap Yes [id number] 10mg Take 1 [facility] r[facility] 10 mg 9-30 tablet by [facility] tablet 00:00: mouth 3 [place] 00 (three) Medical times [facility] daily. METFORMIN 2018- Yes [id number] TAKE 1 [facility] [place] [facility] 500 mg 9-30 TABLET BY [facility] o f 24 hr 00:00: MOUTH [place] tablet 00 EVERY DAY Medical WITH Branch BREAKFAST cyclobenzap Yes [id number] 10mg Take 1 [facility] r[facility] 10 mg 9-30 tablet by [facility] tablet 00:00: mouth 3 [place] 00 (three) Medical times [facility] daily. METFORMIN 2018- Yes [id number] TAKE 1 [facility] [place] [facility] 500 mg 9-30 TABLET BY [facility] o f 24 hr 00:00: MOUTH [place] tablet 00 EVERY DAY Medical WITH Branch BREAKFAST cyclobenzap Yes [id number] 10mg Take 1 [facility] r[facility] 10 mg 9-30 tablet by [facility] tablet 00:00: mouth 3 [place] 00 (three) Medical times [facility] daily. METFORMIN 2018-0 Yes [id number] TAKE 1 [facility] [place] [facility] 500 mg 9-30 TABLET BY [facility] o f 24 hr 00:00: MOUTH [place] tablet 00 EVERY DAY Medical WITH Branch BREAKFAST cyclobenzap Yes [id number] 10mg Take 1 [facility] r[facility] 10 mg 9-30 tablet by [facility] tablet 00:00: mouth 3 [place] 00 (three) Medical times [facility] daily. METFORMIN 2018-0 Yes [id number] TAKE 1 [facility] [place] [facility] 500 mg 9-30 TABLET BY [facility] o f 24 hr 00:00: MOUTH [place] tablet 00 EVERY DAY Medical WITH Branch BREAKFAST cyclobenzap Yes [id number] 10mg Take 1 [facility] r[facility] 10 mg 9-30 tablet by [facility] tablet 00:00: mouth 3 [place] 00 (three) Medical times [facility] daily. METFORMIN 2018- Yes [id number] TAKE 1 [facility] [place] [facility] 500 mg 9-30 TABLET BY [facility] o f 24 hr 00:00: MOUTH [place] tablet 00 EVERY DAY Medical WITH Branch BREAKFAST cyclobenzap Yes [id number] 10mg Take 1 [facility] r[facility] 10 mg 9-30 tablet by [facility] tablet 00:00: mouth 3 [place] 00 (three) Medical times [facility] daily. METFORMIN 2018- Yes [id number] TAKE 1 [facility] [place] [facility] 500 mg 9-30 TABLET BY [facility] o f 24 hr 00:00: MOUTH [place] tablet 00 EVERY DAY Medical WITH Branch BREAKFAST cyclobenzap Yes [id number] 10mg Take 1 [facility] r[facility] 10 mg 9-30 tablet by [facility] tablet 00:00: mouth 3 [place] 00 (three) Medical times [facility] daily. METFORMIN Yes [id number] TAKE 1 [facility] [place] [facility] 500 mg 9-30 TABLET BY [facility] o f 24 hr 00:00: MOUTH [place] tablet 00 EVERY DAY Medical WITH Branch BREAKFAST cyclobenzap Yes [id number] 10mg Take 1 [facility] r[facility] 10 mg 9-30 tablet by [facility] tablet 00:00: mouth 3 [place] 00 (three) Medical times [facility] daily. METFORMIN Yes [id number] TAKE 1 [facility] [place] [facility] 500 mg 9-30 TABLET BY [facility] o f 24 hr 00:00: MOUTH [place] tablet 00 EVERY DAY Medical WITH Branch BREAKFAST cyclobenzap Yes [id number] 10mg Take 1 [facility] r[facility] 10 mg 9-30 tablet by [facility] tablet 00:00: mouth 3 [place] 00 (three) Medical times [facility] daily. METFORMIN 2018- Yes [id number] TAKE 1 [facility] [place] [facility] 500 mg 9-30 TABLET BY [facility] o f 24 hr 00:00: MOUTH [place] tablet 00 EVERY DAY Medical WITH Branch BREAKFAST cyclobenzap Yes [id number] 10mg Take 1 [facility] r[facility] 10 mg 9-30 tablet by [facility] tablet 00:00: mouth 3 [place] 00 (three) Medical times [facility] daily. METFORMIN 2018- Yes [id number] TAKE 1 [facility] [place] [facility] 500 mg 9-30 TABLET BY [facility] o f 24 hr 00:00: MOUTH [place] tablet 00 EVERY DAY Medical WITH Branch BREAKFAST cyclobenzap Yes [id number] 10mg Take 1 [facility] r[facility] 10 mg 9-30 tablet by [facility] tablet 00:00: mouth 3 [place] 00 (three) Medical times [facility] daily. METFORMIN Yes [id number] TAKE 1 [facility] [place] [facility] 500 mg 9-30 TABLET BY [facility] o f 24 hr 00:00: MOUTH [place] tablet 00 EVERY DAY Medical WITH Branch BREAKFAST cyclobenzap Yes [id number] 10mg Take 1 [facility] 10 mg 9-30 tablet by [facility] tablet 00:00: mouth 3 [place] 00 (three) Medical times Branch daily. cyclobenzap Yes [id number] 10mg Take 1 [facility] 10 mg 9-30 tablet by [facility] tablet 00:00: mouth 3 [place] 00 (three) Medical times [facility] daily. cyclobenzap Yes [id number] 10mg Take 1 [facility] r[facility] 10 mg 9-30 tablet by [facility] tablet 00:00: mouth 3 [place] 00 (three) Medical times [facility] daily. cyclobenzap 2020- No [id number] 10mg Take 1 [facility] r[facility] 10 mg 9-30 10-05 tablet by [facility] tablet 00:00: 00:00 mouth 3 [place] 00 :00 (three) Medical times [facility] daily. cyclobenzap 2020- No [id number] 10mg Take 1 [facility] r[facility] 10 mg 9-30 10-05 tablet by [facility] tablet 00:00: 00:00 mouth 3 [place] 00 :00 (three) Medical times [facility] daily. METFORMIN 2020- No [id number] TAKE 1 [facility] ER 500 mg 9-30 03-24 TABLET BY [facility] of 24 hr 00:00: 00:00 MOUTH [place] tablet 00 :00 EVERY DAY Medical WITH Branch BREAKFAST METFORMIN 2020- No [id number] TAKE 1 [facility] 500 mg 9-30 03-24 TABLET BY [facility] of 24 hr 00:00: 00:00 MOUTH [place] tablet 00 :00 EVERY DAY Medical WITH Branch BREAKFAST naproxen 2020- No [id number] 500mg Take 1 [facility] (NAPROSYN) 9-30 -13 tablet by [facility] of 500 mg 00:00: 00:00 mouth 2 [place] tablet 00 :00 (two) Medical times Branch daily with meals. naproxen 2020- No [id number] 500mg Take 1 [facility] (NAPROSYN) 9-30 -13 tablet by [facility] of 500 mg 00:00: 00:00 mouth 2 [place] tablet 00 :00 (two) [facility] times [facility] daily with meals. peg-electro Yes [id number] 4000mL Take 4,000 [facility] lyte soln 9-20 mL by [facility] of 236-22.74-6 00:00: mouth [place] .74 -5.86 00 SEE-INSTRU Medi kacey gram CTIONS. [facility] solution Take as directed Diclofenac Yes [id number] Apply 2 to [facility] Sodium 1 % 9-16 4 grams [facility] of gel 00:00: 3-4 times [place] 00 daily as Medical needed. [facility] Diclofenac Yes [id number] Apply 2 to [facility] Sodium 1 % 9-16 4 grams [facility] of gel 00:00: 3-4 times [place] 00 daily as Medical needed. [facility] Diclofenac Yes [id number] Apply 2 to [facility] Sodium 1 % 9-16 4 grams [facility] of gel 00:00: 3-4 times [place] 00 daily as Medical needed. [facility] Diclofenac Yes [id number] Apply 2 to [facility] Sodium 1 % 9-16 4 grams [facility] of gel 00:00: 3-4 times [place] 00 daily as Medical needed. [facility] Diclofenac Yes [id number] Apply 2 to [facility] Sodium 1 % 9-16 4 grams [facility] of gel 00:00: 3-4 times [place] 00 daily as Medical needed. Branch Diclofenac Yes [id number] Apply 2 to [facility] Sodium 1 % 9-16 4 grams [facility] of gel 00:00: 3-4 times [place] 00 daily as Medical needed. Branch Diclofenac Yes [id number] Apply 2 to [facility] Sodium 1 % 9-16 4 grams [facility] of gel 00:00: 3-4 times [place] 00 daily as Medical needed. Branch Diclofenac Yes [id number] Apply 2 to [facility] Sodium 1 % 9-16 4 grams [facility] of gel 00:00: 3-4 times [place] 00 daily as Medical needed. [facility] Diclofenac Yes [id number] Apply 2 to [facility] Sodium 1 % 9-16 4 grams [facility] of gel 00:00: 3-4 times [place] 00 daily as Medical needed. Branch Diclofenac Yes [id number] Apply 2 to [facility] Sodium 1 % 9-16 4 grams [facility] of gel 00:00: 3-4 times [place] 00 daily as Medical needed. [facility] Diclofenac Yes [id number] Apply 2 to [facility] Sodium 1 % 9-16 4 grams [facility] of gel 00:00: 3-4 times [place] 00 daily as Medical needed. Branch Diclofenac Yes [id number] Apply 2 to [facility] Sodium 1 % 9-16 4 grams [facility] of gel 00:00: 3-4 times [place] 00 daily as Medical needed. Branch Diclofenac Yes [id number] Apply 2 to [facility] Sodium 1 % 9-16 4 grams [facility] of gel 00:00: 3-4 times [place] 00 daily as Medical needed. Branch Diclofenac Yes [id number] Apply 2 to [facility] Sodium 1 % 9-16 4 grams [facility] of gel 00:00: 3-4 times [place] 00 daily as Medical needed. Branch Diclofenac Yes [id number] Apply 2 to [facility] Sodium 1 % 9-16 4 grams [facility] of gel 00:00: 3-4 times [place] 00 daily as Medical needed. Branch Diclofenac Yes [id number] Apply 2 to [facility] Sodium 1 % 9-16 4 grams [facility] of gel 00:00: 3-4 times [place] 00 daily as Medical needed. Branch Diclofenac Yes [id number] Apply 2 to [facility] Sodium 1 % 9-16 4 grams [facility] of gel 00:00: 3-4 times [place] 00 daily as Medical needed. Branch Diclofenac Yes [id number] Apply 2 to [facility] Sodium 1 % 9-16 4 grams [facility] of gel 00:00: 3-4 times [place] 00 daily as Medical needed. Branch Diclofenac Yes [id number] Apply 2 to [facility] Sodium 1 % 9-16 4 grams [facility] of gel 00:00: 3-4 times [place] 00 daily as Medical needed. Branch Diclofenac Yes [id number] Apply 2 to [facility] Sodium 1 % 9-16 4 grams [facility] of gel 00:00: 3-4 times [place] 00 daily as Medical needed. Branch Diclofenac Yes [id number] Apply 2 to [facility] Sodium 1 % 9-16 4 grams [facility] of gel 00:00: 3-4 times [place] 00 daily as Medical needed. Branch Diclofenac Yes [id number] Apply 2 to [facility] Sodium 1 % 9-16 4 grams [facility] of gel 00:00: 3-4 times [place] 00 daily as Medical needed. Branch Diclofenac Yes [id number] Apply 2 to [facility] Sodium 1 % 9-16 4 grams [facility] of gel 00:00: 3-4 times [place] 00 daily as Medical needed. Branch Diclofenac Yes [id number] Apply 2 to [facility] Sodium 1 % 9-16 4 grams [facility] of gel 00:00: 3-4 times [place] 00 daily as Medical needed. Branch Diclofenac Yes [id number] Apply 2 to [facility] Sodium 1 % 9-16 4 grams [facility] of gel 00:00: 3-4 times [place] 00 daily as Medical needed. Branch Diclofenac Yes [id number] Apply 2 to [facility] Sodium 1 % 9-16 4 grams [facility] of gel 00:00: 3-4 times [place] 00 daily as Medical needed. Branch Diclofenac Yes [id number] Apply 2 to [facility] Sodium 1 % 9-16 4 grams [facility] of gel 00:00: 3-4 times [place] 00 daily as Medical needed. Branch Diclofenac Yes [id number] Apply 2 to [facility] Sodium 1 % 9-16 4 grams [facility] of gel 00:00: 3-4 times [place] 00 daily as Medical needed. Branch Diclofenac Yes [id number] Apply 2 to [facility] Sodium 1 % 9-16 4 grams [facility] of gel 00:00: 3-4 times [place] 00 daily as Medical needed. Branch Diclofenac Yes [id number] Apply 2 to [facility] Sodium 1 % 9-16 4 grams [facility] of gel 00:00: 3-4 times [place] 00 daily as Medical needed. Branch Diclofenac Yes [id number] Apply 2 to [facility] Sodium 1 % 9-16 4 grams [facility] of gel 00:00: 3-4 times [place] 00 daily as Medical needed. Branch Diclofenac Yes [id number] Apply 2 to [facility] Sodium 1 % 9-16 4 grams [facility] of gel 00:00: 3-4 times [place] 00 daily as Medical needed. Branch Diclofenac Yes [id number] Apply 2 to [facility] Sodium 1 % 9-16 4 grams [facility] of gel 00:00: 3-4 times [place] 00 daily as Medical needed. Branch Diclofenac Yes [id number] Apply 2 to [facility] Sodium 1 % 9-16 4 grams [facility] of gel 00:00: 3-4 times [place] 00 daily as Medical needed. Branch Diclofenac Yes [id number] Apply 2 to [facility] Sodium 1 % 9-16 4 grams [facility] of gel 00:00: 3-4 times [place] 00 daily as Medical needed. Branch Diclofenac Yes [id number] Apply 2 to [facility] Sodium 1 % 9-16 4 grams [facility] of gel 00:00: 3-4 times [place] 00 daily as Medical needed. Branch Diclofenac Yes [id number] Apply 2 to [facility] Sodium 1 % 9-16 4 grams [facility] of gel 00:00: 3-4 times [place] 00 daily as Medical needed. Branch Diclofenac Yes [id number] Apply 2 to [facility] Sodium 1 % 9-16 4 grams [facility] of gel 00:00: 3-4 times [place] 00 daily as Medical needed. Branch Diclofenac Yes [id number] Apply 2 to [facility] Sodium 1 % 9-16 4 grams [facility] of gel 00:00: 3-4 times [place] 00 daily as Medical needed. Branch Diclofenac Yes [id number] Apply 2 to [facility] Sodium 1 % 9-16 4 grams [facility]y of gel 00:00: 3-4 times [place] 00 daily as Medical needed. Branch Diclofenac Yes [id number] Apply 2 to [facility] Sodium 1 % 9-16 4 grams [facility]y of gel 00:00: 3-4 times [place] 00 daily as Medical needed. Branch Diclofenac Yes [id number] Apply 2 to [facility] Sodium 1 % 9-16 4 grams [facility] of gel 00:00: 3-4 times [place] 00 daily as Medical needed. Branch Diclofenac Yes [id number] Apply 2 to [facility] Sodium 1 % 9-16 4 grams [facility]y of gel 00:00: 3-4 times [place] 00 daily as Medical needed. Branch Diclofenac Yes [id number] Apply 2 to [facility] Sodium 1 % 9-16 4 grams [facility]y of gel 00:00: 3-4 times [place] 00 daily as Medical needed. Branch Diclofenac Yes [id number] Apply 2 to [facility] Sodium 1 % 9-16 4 grams [facility]y of gel 00:00: 3-4 times [place] 00 daily as Medical needed. Branch Diclofenac Yes [id number] Apply 2 to [facility] Sodium 1 % 9-16 4 grams [facility] of gel 00:00: 3-4 times [place] 00 daily as Medical needed. Branch Diclofenac Yes [id number] Apply 2 to [facility] Sodium 1 % 9-16 4 grams [facility] of gel 00:00: 3-4 times [place] 00 daily as Medical needed. Branch Diclofenac Yes [id number] Apply 2 to [facility] Sodium 1 % 9-16 4 grams [facility]y of gel 00:00: 3-4 times [place] 00 daily as Medical needed. Branch Diclofenac Yes [id number] Apply 2 to [facility] Sodium 1 % 9-16 4 grams [facility] of gel 00:00: 3-4 times [place] 00 daily as Medical needed. Branch Diclofenac Yes [id number] Apply 2 to [facility] Sodium 1 % 9-16 4 grams [facility] of gel 00:00: 3-4 times [place] 00 daily as Medical needed. Branch Diclofenac Yes [id number] Apply 2 to [facility] Sodium 1 % 9-16 4 grams [facility] of gel 00:00: 3-4 times [place] 00 daily as Medical needed. Branch Diclofenac Yes [id number] Apply 2 to [facility] Sodium 1 % 9-16 4 grams [facility] of gel 00:00: 3-4 times [place] 00 daily as Medical needed. Branch Diclofenac Yes [id number] Apply 2 to [facility] Sodium 1 % 9-16 4 grams [facility] of gel 00:00: 3-4 times [place] 00 daily as Medical needed. Branch Diclofenac Yes [id number] Apply 2 to [facility] Sodium 1 % 9-16 4 grams [facility] of gel 00:00: 3-4 times [place] 00 daily as Medical needed. Branch Diclofenac Yes [id number] Apply 2 to [facility] Sodium 1 % 9-16 4 grams [facility] of gel 00:00: 3-4 times [place] 00 daily as Medical needed. Branch Diclofenac Yes [id number] Apply 2 to [facility] Sodium 1 % 9-16 4 grams [facility] of gel 00:00: 3-4 times [place] 00 daily as Medical needed. Branch Diclofenac Yes [id number] Apply 2 to [facility] Sodium 1 % 9-16 4 grams [facility] of gel 00:00: 3-4 times [place] 00 daily as Medical needed. Branch Diclofenac Yes [id number] Apply 2 to [facility] Sodium 1 % 9-16 4 grams [facility] of gel 00:00: 3-4 times [place] 00 daily as Medical needed. Branch Diclofenac Yes [id number] Apply 2 to [facility] Sodium 1 % 9-16 4 grams [facility] of gel 00:00: 3-4 times [place] 00 daily as Medical needed. [facility] Diclofenac Yes [id number] Apply 2 to [facility] Sodium 1 % 9-16 4 grams [facility] of gel 00:00: 3-4 times [place] 00 daily as Medical needed. [facility] Diclofenac Yes [id number] Apply 2 to [facility] Sodium 1 % 9-16 4 grams [facility] of gel 00:00: 3-4 times [place] 00 daily as Medical needed. [facility] Diclofenac Yes [id number] Apply 2 to [facility] Sodium 1 % 9-16 4 grams [facility] of gel 00:00: 3-4 times [place] 00 daily as Medical needed. [facility] Diclofenac Yes [id number] Apply 2 to [facility] Sodium 1 % 9-16 4 grams [facility] of gel 00:00: 3-4 times [place] 00 daily as Medical needed. [facility] Diclofenac Yes [id number] Apply 2 to [facility] Sodium 1 % 9-16 4 grams [facility] of gel 00:00: 3-4 times [place] 00 daily as Medical needed. [facility] Diclofenac Yes [id number] Apply 2 to [facility] Sodium 1 % 9-16 4 grams [facility] of gel 00:00: 3-4 times [place] 00 daily as Medical needed. [facility] Diclofenac Yes [id number] Apply 2 to [facility] Sodium 1 % 9-16 4 grams [facility] of gel 00:00: 3-4 times [place] 00 daily as Medical needed. [facility] Diclofenac Yes [id number] Apply 2 to [facility] Sodium 1 % 9-16 4 grams [facility] of gel 00:00: 3-4 times [place] 00 daily as Medical needed. [facility] Diclofenac Yes [id number] Apply 2 to [facility] Sodium 1 % 9-16 4 grams [facility] of gel 00:00: 3-4 times [place] 00 daily as Medical needed. [facility] Diclofenac Yes [id number] Apply 2 to [facility] Sodium 1 % 9-16 4 grams [facility] of gel 00:00: 3-4 times [place] 00 daily as Medical needed. [facility] methocarbam Yes [id number] 750mg Take 1 [facility] ol 9-16 tablet by ity of (ROBAXIN-75 00:00: mouth 4 [place] [facility] 0) 750 mg 00 (four) Medical tablet times Branch daily as needed for Pain (scale 1-3). Diclofenac Yes [id number] Apply 2 to [facility] Sodium 1 % 9-16 4 grams [facility] of gel 00:00: 3-4 times [place] 00 daily as Medical needed. [facility] Diclofenac Yes [id number] Apply 2 to [facility] Sodium 1 % 9-16 4 grams [facility] of gel 00:00: 3-4 times [place] 00 daily as Medical needed. [facility] Diclofenac Yes [id number] Apply 2 to [facility] Sodium 1 % 9-16 4 grams [facility] of gel 00:00: 3-4 times [place] 00 daily as Medical needed. [facility] Diclofenac Yes [id number] Apply 2 to [facility] Sodium 1 % 9-16 4 grams [facility] of gel 00:00: 3-4 times [place] 00 daily as Medical needed. [facility] Diclofenac Yes [id number] Apply 2 to [facility] Sodium 1 % 9-16 4 grams [facility] of gel 00:00: 3-4 times [place] 00 daily as Medical needed. [facility] Diclofenac Yes [id number] Apply 2 to [facility] Sodium 1 % 9-16 4 grams [facility] of gel 00:00: 3-4 times [place] 00 daily as Medical needed. [facility] Diclofenac Yes [id number] Apply 2 to [facility] Sodium 1 % 9-16 4 grams [facility] of gel 00:00: 3-4 times [place] 00 daily as Medical needed. [facility] Diclofenac Yes [id number] Apply 2 to [facility] Sodium 1 % 9-16 4 grams [facility] of gel 00:00: 3-4 times [place] 00 daily as Medical needed. [facility] Diclofenac Yes [id number] Apply 2 to [facility] Sodium 1 % 9-16 4 grams [facility] of gel 00:00: 3-4 times [place] 00 daily as Medical needed. [facility] Diclofenac Yes [id number] Apply 2 to [facility] Sodium 1 % 9-16 4 grams [facility] of gel 00:00: 3-4 times [place] 00 daily as Medical needed. [facility] methocarbam Yes [id number] 750mg Take 1 [facility] ol 9-16 tablet by ity of (ROBAXIN-75 00:00: mouth 4 [place] 0) 750 mg 00 (four) Medical tablet times Branch daily as needed for Pain (scale 1-3). Diclofenac Yes [id number] Apply 2 to [facility] Sodium 1 % 9-16 4 grams [facility] of gel 00:00: 3-4 times [place] 00 daily as Medical needed. [facility] Diclofenac Yes [id number] Apply 2 to [facility] Sodium 1 % 9-16 4 grams [facility] of gel 00:00: 3-4 times [place] 00 daily as Medical needed. [facility] Diclofenac Yes [id number] Apply 2 to [facility] Sodium 1 % 9-16 4 grams [facility] of gel 00:00: 3-4 times [place] 00 daily as Medical needed. [facility] Diclofenac Yes [id number] Apply 2 to [facility] Sodium 1 % 9-16 4 grams [facility] of gel 00:00: 3-4 times [place] 00 daily as Medical needed. [facility] Diclofenac Yes [id number] Apply 2 to [facility] Sodium 1 % 9-16 4 grams [facility] of gel 00:00: 3-4 times [place] 00 daily as Medical needed. [facility] Diclofenac Yes [id number] Apply 2 to [facility] Sodium 1 % 9-16 4 grams [facility] of gel 00:00: 3-4 times [place] 00 daily as Medical needed. [facility] Diclofenac Yes [id number] Apply 2 to [facility] Sodium 1 % 9-16 4 grams [facility] of gel 00:00: 3-4 times [place] 00 daily as Medical needed. [facility] Diclofenac Yes [id number] Apply 2 to [facility] Sodium 1 % 9-16 4 grams [facility]y of gel 00:00: 3-4 times [place] 00 daily as Medical needed. [facility] Diclofenac Yes [id number] Apply 2 to [facility] Sodium 1 % 9-16 4 grams [facility] of gel 00:00: 3-4 times [place] 00 daily as Medical needed. [facility] Diclofenac Yes [id number] Apply 2 to [facility] Sodium 1 % 9-16 4 grams [facility] of gel 00:00: 3-4 times [place] 00 daily as Medical needed. [facility] methocarbam Yes [id number] 750mg Take 1 [facility] ol 9-16 tablet by ity of (ROBAXIN-75 00:00: mouth 4 [place] [facility] 0) 750 mg 00 (four) Medical tablet times [facility] daily as needed for Pain (scale 1-3). Diclofenac Yes [id number] Apply 2 to [facility] Sodium 1 % 9-16 4 grams [facility] of gel 00:00: 3-4 times [place] 00 daily as Medical needed. [facility] Diclofenac Yes [id number] Apply 2 to [facility] Sodium 1 % 9-16 4 grams [facility] of gel 00:00: 3-4 times [place] 00 daily as Medical needed. [facility] Diclofenac Yes [id number] Apply 2 to [facility] Sodium 1 % 9-16 4 grams [facility] of gel 00:00: 3-4 times [place] 00 daily as Medical needed. [facility] Diclofenac Yes [id number] Apply 2 to [facility] Sodium 1 % 9-16 4 grams [facility]y of gel 00:00: 3-4 times [place] 00 daily as Medical needed. [facility] Diclofenac Yes [id number] Apply 2 to [facility] Sodium 1 % 9-16 4 grams [facility]y of gel 00:00: 3-4 times [place] 00 daily as Medical needed. [facility] Diclofenac Yes [id number] Apply 2 to [facility] Sodium 1 % 9-16 4 grams [facility]y of gel 00:00: 3-4 times [place] 00 daily as Medical needed. [facility] Diclofenac Yes [id number] Apply 2 to [facility] Sodium 1 % 9-16 4 grams [facility]y of gel 00:00: 3-4 times [place] 00 daily as Medical needed. [facility] Diclofenac Yes [id number] Apply 2 to [facility] Sodium 1 % 9-16 4 grams [facility]y of gel 00:00: 3-4 times [place] 00 daily as Medical needed. [facility] methocarbam Yes [id number] 750mg Take 1 [facility] ol 9-16 tablet by ity of (ROBAXIN-75 00:00: mouth 4 [place] 0) 750 mg 00 (four) Medical tablet times [facility] daily as needed for Pain (scale 1-3). Diclofenac Yes [id number] Apply 2 to [facility] Sodium 1 % 9-16 4 grams [facility] of gel 00:00: 3-4 times [place] 00 daily as Medical needed. [facility] Diclofenac Yes [id number] Apply 2 to [facility] Sodium 1 % 9-16 4 grams [facility]y of gel 00:00: 3-4 times [place] 00 daily as Medical needed. [facility] Diclofenac Yes [id number] Apply 2 to [facility] Sodium 1 % 9-16 4 grams [facility]y of gel 00:00: 3-4 times [place] 00 daily as Medical needed. [facility] Diclofenac Yes [id number] Apply 2 to [facility] Sodium 1 % 9-16 4 grams ity of gel 00:00: 3-4 times [place] 00 daily as Medical needed. [facility] Diclofenac Yes [id number] Apply 2 to [facility] Sodium 1 % 9-16 4 grams [facility]y of gel 00:00: 3-4 times [place] 00 daily as Medical needed. [facility] Diclofenac Yes [id number] Apply 2 to [facility] Sodium 1 % 9-16 4 grams [facility]y of gel 00:00: 3-4 times [place] 00 daily as Medical needed. [facility] Diclofenac Yes [id number] Apply 2 to [facility] Sodium 1 % 9-16 4 grams [facility]y of gel 00:00: 3-4 times [place] 00 daily as Medical needed. [facility] Diclofenac Yes [id number] Apply 2 to [facility] Sodium 1 % 9-16 4 grams it[facility] of gel 00:00: 3-4 times [place] 00 daily as Medical needed. [facility] methocarbam Yes [id number] 750mg Take 1 [facility] ol 9-16 tablet by ity of (ROBAXIN-75 00:00: mouth 4 [place] as 0) 750 mg 00 (four) Medical tablet times [facility] daily as needed for Pain (scale 1-3). Diclofenac Yes [id number] Apply 2 to [facility] Sodium 1 % 9-16 4 grams [facility] of gel 00:00: 3-4 times [place] 00 daily as Medical needed. [facility] Diclofenac Yes [id number] Apply 2 to [facility] Sodium 1 % 9-16 4 grams [facility] of gel 00:00: 3-4 times [place] 00 daily as Medical needed. [facility] Diclofenac Yes [id number] Apply 2 to [facility] Sodium 1 % 9-16 4 grams [facility] of gel 00:00: 3-4 times [place] 00 daily as Medical needed. [facility] Diclofenac Yes [id number] Apply 2 to [facility] Sodium 1 % 9-16 4 grams [facility] of gel 00:00: 3-4 times [place] 00 daily as Medical needed. [facility] Diclofenac Yes [id number] Apply 2 to [facility] Sodium 1 % 9-16 4 grams [facility] of gel 00:00: 3-4 times [place] 00 daily as Medical needed. [facility] Diclofenac Yes [id number] Apply 2 to [facility] Sodium 1 % 9-16 4 grams [facility] of gel 00:00: 3-4 times [place] 00 daily as Medical needed. [facility] Diclofenac Yes [id number] Apply 2 to [facility] Sodium 1 % 9-16 4 grams [facility] of gel 00:00: 3-4 times [place] 00 daily as Medical needed. [facility] methocarbam Yes [id number] 750mg Take 1 [facility] ol 9-16 tablet by ity of (ROBAXIN-75 00:00: mouth 4 [place] 0) 750 mg 00 (four) Medical tablet times [facility] daily as needed for Pain (scale 1-3). Diclofenac Yes [id number] Apply 2 to [facility] Sodium 1 % 9-16 4 grams [facility] of gel 00:00: 3-4 times [place] 00 daily as Medical needed. [facility] Diclofenac Yes [id number] Apply 2 to [facility] Sodium 1 % 9-16 4 grams [facility] of gel 00:00: 3-4 times [place] 00 daily as Medical needed. [facility] Diclofenac Yes [id number] Apply 2 to [facility] Sodium 1 % 9-16 4 grams [facility] of gel 00:00: 3-4 times [place] 00 daily as Medical needed. [facility] Diclofenac Yes [id number] Apply 2 to [facility] Sodium 1 % 9-16 4 grams [facility] of gel 00:00: 3-4 times [place] 00 daily as Medical needed. [facility] Diclofenac Yes [id number] Apply 2 to [facility] Sodium 1 % 9-16 4 grams [facility] of gel 00:00: 3-4 times [place] 00 daily as Medical needed. [facility] Diclofenac Yes [id number] Apply 2 to [facility] Sodium 1 % 9-16 4 grams [facility] of gel 00:00: 3-4 times [place] 00 daily as Medical needed. [facility] Diclofenac Yes [id number] Apply 2 to [facility] Sodium 1 % 9-16 4 grams [facility] of gel 00:00: 3-4 times [place] 00 daily as Medical needed. [facility] Diclofenac Yes [id number] Apply 2 to [facility] Sodium 1 % 9-16 4 grams [facility] of gel 00:00: 3-4 times [place] 00 daily as Medical needed. [facility] Diclofenac Yes [id number] Apply 2 to [facility] Sodium 1 % 9-16 4 grams [facility] of gel 00:00: 3-4 times [place] 00 daily as Medical needed. [facility] Diclofenac Yes [id number] Apply 2 to [facility] Sodium 1 % 9-16 4 grams [facility] of gel 00:00: 3-4 times [place] 00 daily as Medical needed. [facility] Diclofenac Yes [id number] Apply 2 to [facility] Sodium 1 % 9-16 4 grams [facility] of gel 00:00: 3-4 times [place] 00 daily as Medical needed. [facility] Diclofenac Yes [id number] Apply 2 to [facility] Sodium 1 % 9-16 4 grams [facility] of gel 00:00: 3-4 times [place] 00 daily as Medical needed. [facility] Diclofenac Yes [id number] Apply 2 to [facility] Sodium 1 % 9-16 4 grams [facility] of gel 00:00: 3-4 times [place] 00 daily as Medical needed. [facility] Diclofenac Yes [id number] Apply 2 to [facility] Sodium 1 % 9-16 4 grams [facility] of gel 00:00: 3-4 times [place] 00 daily as Medical needed. [facility] Diclofenac Yes [id number] Apply 2 to [facility] Sodium 1 % 9-16 4 grams [facility] of gel 00:00: 3-4 times [place] 00 daily as Medical needed. [facility] Diclofenac Yes [id number] Apply 2 to [facility] Sodium 1 % 9-16 4 grams [facility] of gel 00:00: 3-4 times [place] 00 daily as Medical needed. [facility] Diclofenac Yes [id number] Apply 2 to [facility] Sodium 1 % 9-16 4 grams [facility] of gel 00:00: 3-4 times [place] 00 daily as Medical needed. [facility] Diclofenac Yes [id number] Apply 2 to [facility] Sodium 1 % 9-16 4 grams [facility] of gel 00:00: 3-4 times [place] 00 daily as Medical needed. [facility] Diclofenac Yes [id number] Apply 2 to [facility] Sodium 1 % 9-16 4 grams [facility] of gel 00:00: 3-4 times [place] 00 daily as Medical needed. [facility] Diclofenac Yes [id number] Apply 2 to [facility] Sodium 1 % 9-16 4 grams [facility] of gel 00:00: 3-4 times [place] 00 daily as Medical needed. [facility] Diclofenac Yes [id number] Apply 2 to [facility] Sodium 1 % 9-16 4 grams [facility] of gel 00:00: 3-4 times [place] 00 daily as Medical needed. [facility] Diclofenac Yes [id number] Apply 2 to [facility] Sodium 1 % 9-16 4 grams [facility] of gel 00:00: 3-4 times [place] 00 daily as Medical needed. [facility] Diclofenac Yes [id number] Apply 2 to [facility] Sodium 1 % 9-16 4 grams [facility] of gel 00:00: 3-4 times [place] 00 daily as Medical needed. [facility] Diclofenac Yes [id number] Apply 2 to [facility] Sodium 1 % 9-16 4 grams [facility] of gel 00:00: 3-4 times [place] 00 daily as Medical needed. [facility] Diclofenac 2018-0 Yes [id number] Apply 2 to [facility] Sodium 1 % 9-16 4 grams [facility] of gel 00:00: 3-4 times [place] 00 daily as Medical needed. [facility] Diclofenac 2018-0 Yes [id number] Apply 2 to [facility] Sodium 1 % 9-16 4 grams [facility] of gel 00:00: 3-4 times [place] 00 daily as Medical needed. [facility] TIZANIDINE Yes [id number] 2mg TAKE 1-2 [facility] 2 mg tablet 7-24 TABLETS BY it y of 00:00: MOUTH [place] 00 EVERY 8 Medical (EIGHT) Branch HOURS NEEDED (MUSCLE PAIN OR SPASM). TIZANIDINE Yes [id number] 2mg TAKE 1-2 [facility] 2 mg tablet 7-24 TABLETS BY it y of 00:00: MOUTH [place] 00 EVERY 8 Medical (EIGHT) Branch HOURS NEEDED (MUSCLE PAIN OR SPASM). TIZANIDINE Yes [id number] 2mg TAKE 1-2 [facility] 2 mg tablet 7-24 TABLETS BY it y of 00:00: MOUTH [place] 00 EVERY 8 Medical (EIGHT) Branch HOURS NEEDED (MUSCLE PAIN OR SPASM). TIZANIDINE Yes [id number] 2mg TAKE 1-2 [facility] 2 mg tablet 7-24 TABLETS BY it y of 00:00: MOUTH [place] 00 EVERY 8 Medical (EIGHT) Branch HOURS NEEDED (MUSCLE PAIN OR SPASM). TIZANIDINE Yes [id number] 2mg TAKE 1-2 [facility] 2 mg tablet 7-24 TABLETS BY it y of 00:00: MOUTH [place] 00 EVERY 8 Medical (EIGHT) Branch HOURS NEEDED (MUSCLE PAIN OR SPASM). TIZANIDINE 0 Yes [id number] 2mg TAKE 1-2 [facility] 2 mg tablet 7-24 TABLETS BY it y of 00:00: MOUTH [place] 00 EVERY 8 Medical (EIGHT) Branch HOURS NEEDED (MUSCLE PAIN OR SPASM). TIZANIDINE 0 Yes [id number] 2mg TAKE 1-2 [facility] 2 mg tablet 7-24 TABLETS BY it y of 00:00: MOUTH [place] 00 EVERY 8 Medical (EIGHT) Branch HOURS NEEDED (MUSCLE PAIN OR SPASM). TIZANIDINE 2018-0 Yes [id number] 2mg TAKE 1-2 [facility] 2 mg tablet 7-24 TABLETS BY it y of 00:00: MOUTH [place] 00 EVERY 8 Medical (EIGHT) Branch HOURS NEEDED (MUSCLE PAIN OR SPASM). TIZANIDINE 2019-0 Yes [id number] 2mg TAKE 1-2 [facility] 2 mg tablet 7-24 TABLETS BY it y of 00:00: MOUTH [place] 00 EVERY 8 Medical (EIGHT) Branch HOURS NEEDED (MUSCLE PAIN OR SPASM). TIZANIDINE 2019-0 Yes [id number] 2mg TAKE 1-2 [facility] 2 mg tablet 7-24 TABLETS BY it y of 00:00: MOUTH [place] 00 EVERY 8 Medical (EIGHT) Branch HOURS NEEDED (MUSCLE PAIN OR SPASM). TIZANIDINE 2019-0 Yes [id number] 2mg TAKE 1-2 [facility] 2 mg tablet 7-24 TABLETS BY it y of 00:00: MOUTH [place] 00 EVERY 8 Medical (EIGHT) Branch HOURS NEEDED (MUSCLE PAIN OR SPASM). TIZANIDINE 2019-0 Yes [id number] 2mg TAKE 1-2 [facility] 2 mg tablet 7-24 TABLETS BY it y of 00:00: MOUTH [place] 00 EVERY 8 Medical (EIGHT) Branch HOURS NEEDED (MUSCLE PAIN OR SPASM). TIZANIDINE 2019-0 Yes [id number] 2mg TAKE 1-2 [facility] 2 mg tablet 7-24 TABLETS BY it y of 00:00: MOUTH [place] 00 EVERY 8 Medical (EIGHT) Branch HOURS NEEDED (MUSCLE PAIN OR SPASM). ibandronate 2019-0 Yes [id number] 150mg Take 1 [facility] 150 mg 7-23 tablet by [facility] of tablet 00:00: mouth once every Medical month. Branch ibandronate 2019-0 Yes [id number] 150mg Take 1 [facility] 150 mg 7-23 tablet by [facility] of tablet 00:00: mouth once every Medical month. [facility] ibandronate 2019-0 Yes [id number] 150mg Take 1 [facility] 150 mg 7-23 tablet by [facility] of tablet 00:00: mouth once every Medical month. [facility] ibandronate 2019-0 Yes [id number] 150mg Take 1 [facility] 150 mg 7-23 tablet by [facility] of tablet 00:00: mouth once every Medical month. [facility] ibandronate 2019-0 Yes [id number] 150mg Take 1 [facility] 150 mg 7-23 tablet by [facility] of tablet 00:00: mouth once [place] 00 every Medical month. [facility] ibandronate 2019-0 Yes [id number] 150mg Take 1 [facility] 150 mg 7-23 tablet by [facility] of tablet 00:00: mouth once [place] 00 every Medical month. [facility] ibandronate 2019-0 Yes [id number] 150mg Take 1 [facility] 150 mg 7-23 tablet by [facility] of tablet 00:00: mouth once [place] 00 every Medical month. [facility] ibandronate 2019-0 Yes [id number] 150mg Take 1 [facility] 150 mg 7-23 tablet by [facility] of tablet 00:00: mouth once [place] 00 every Medical month. [facility] ibandronate 2019-0 Yes [id number] 150mg Take 1 [facility] 150 mg 7-23 tablet by [facility] of tablet 00:00: mouth once [place] 00 every Medical month. [facility] ibandronate 2019-0 Yes [id number] 150mg Take 1 [facility] 150 mg 7-23 tablet by [facility] of tablet 00:00: mouth once [place] every Medical month. [facility] ibandronate 2019-0 Yes [id number] 150mg Take 1 [facility] 150 mg 7-23 tablet by [facility] of tablet 00:00: mouth once [place] 00 every Medical month. [facility] ibandronate 2019-0 Yes [id number] 150mg Take 1 [facility] 150 mg 7-23 tablet by [facility] of tablet 00:00: mouth once [place] 00 every Medical month. [facility] ibandronate 2019-0 Yes [id number] 150mg Take 1 [facility] 150 mg 7-23 tablet by [facility] of tablet 00:00: mouth once [place] 00 every Medical month. [facility] ibandronate 2019-0 Yes [id number] 150mg Take 1 [facility] 150 mg 7-23 tablet by [facility] of tablet 00:00: mouth once [place] 00 every Medical month. [facility] ibandronate 2019-0 Yes [id number] 150mg Take 1 [facility] 150 mg 7-23 tablet by [facility] of tablet 00:00: mouth once [place] 00 every Medical month. [facility] ibandronate 2019-0 Yes [id number] 150mg Take 1 [facility] 150 mg 7-23 tablet by [facility] of tablet 00:00: mouth once [place] 00 every Medical month. [facility] ibandronate 2019-0 Yes [id number] 150mg Take 1 [facility] 150 mg 7-23 tablet by [facility] of tablet 00:00: mouth once [place] 00 every Medical month. [facility] ibandronate 2019-0 Yes [id number] 150mg Take 1 [facility] 150 mg 7-23 tablet by [facility] of tablet 00:00: mouth once [place] 00 every Medical month. [facility] ibandronate 2019-0 Yes [id number] 150mg Take 1 [facility] 150 mg 7-23 tablet by [facility] of tablet 00:00: mouth once [place] 00 every Medical month. [facility] ibandronate 2019-0 Yes [id number] 150mg Take 1 [facility] 150 mg 7-23 tablet by [facility] of tablet 00:00: mouth once [place] 00 every Medical month. [facility] ibandronate 2019-0 Yes [id number] 150mg Take 1 [facility] 150 mg 7-23 tablet by [facility] of tablet 00:00: mouth once [place] 00 every Medical month. [facility] ibandronate 2019-0 Yes [id number] 150mg Take 1 [facility] 150 mg 7-23 tablet by [facility] of tablet 00:00: mouth once [place] 00 every Medical month. [facility] ibandronate 2019-0 Yes [id number] 150mg Take 1 [facility] 150 mg 7-23 tablet by [facility] of tablet 00:00: mouth once [place] 00 every Medical month. [facility] ibandronate 2019-0 Yes [id number] 150mg Take 1 [facility] 150 mg 7-23 tablet by [facility] of tablet 00:00: mouth once [place] 00 every Medical month. [facility] ibandronate 2019-0 Yes [id number] 150mg Take 1 [facility] 150 mg 7-23 tablet by [facility] of tablet 00:00: mouth once [place] 00 every Medical month. [facility] ibandronate 2019-0 Yes [id number] 150mg Take 1 [facility] 150 mg 7-23 tablet by [facility] of tablet 00:00: mouth once [place] 00 every Medical month. [facility] ibandronate 2019-0 Yes [id number] 150mg Take 1 [facility] 150 mg 7-23 tablet by [facility] of tablet 00:00: mouth once [place] 00 every Medical month. [facility] ibandronate 2019-0 Yes [id number] 150mg Take 1 [facility] 150 mg 7-23 tablet by [facility] of tablet 00:00: mouth once [place] 00 every Medical month. [facility] ibandronate 2019-0 Yes [id number] 150mg Take 1 [facility] 150 mg 7-23 tablet by [facility] of tablet 00:00: mouth once [place] 00 every Medical month. [facility] ibandronate 2019-0 Yes [id number] 150mg Take 1 [facility] 150 mg 7-23 tablet by [facility] of tablet 00:00: mouth once [place] 00 every Medical month. [facility] ibandronate 2019-0 Yes [id number] 150mg Take 1 [facility] 150 mg 7-23 tablet by [facility] of tablet 00:00: mouth once [place] 00 every Medical month. [facility] ibandronate 2019-0 Yes [id number] 150mg Take 1 [facility] 150 mg 7-23 tablet by [facility] of tablet 00:00: mouth once [place] 00 every Medical month. [facility] ibandronate 2019-0 Yes [id number] 150mg Take 1 [facility] 150 mg 7-23 tablet by [facility] of tablet 00:00: mouth once [place] 00 every Medical month. [facility] ibandronate 2019-0 Yes [id number] 150mg Take 1 [facility] 150 mg 7-23 tablet by [facility] of tablet 00:00: mouth once [place] 00 every Medical month. [facility] ibandronate 2019-0 Yes [id number] 150mg Take 1 [facility] 150 mg 7-23 tablet by [facility] of tablet 00:00: mouth once [place] every Medical month. [facility] ibandronate 2019-0 Yes [id number] 150mg Take 1 [facility] 150 mg 7-23 tablet by [facility] of tablet 00:00: mouth once [place] 00 every Medical month. [facility] ibandronate 2019-0 Yes [id number] 150mg Take 1 [facility] 150 mg 7-23 tablet by [facility] of tablet 00:00: mouth once [place] 00 every Medical month. [facility] ibandronate 2019-0 Yes [id number] 150mg Take 1 [facility] 150 mg 7-23 tablet by [facility] of tablet 00:00: mouth once [place] 00 every Medical month. [facility] ibandronate 2019-0 Yes [id number] 150mg Take 1 [facility] 150 mg 7-23 tablet by [facility] of tablet 00:00: mouth once [place] 00 every Medical month. [facility] ibandronate 2019-0 Yes [id number] 150mg Take 1 [facility] 150 mg 7-23 tablet by [facility] of tablet 00:00: mouth once [place] 00 every Medical month. [facility] ibandronate 2019-0 Yes [id number] 150mg Take 1 [facility] 150 mg 7-23 tablet by [facility] of tablet 00:00: mouth once [place] 00 every Medical month. [facility] ibandronate 2019-0 Yes [id number] 150mg Take 1 [facility] 150 mg 7-23 tablet by [facility] of tablet 00:00: mouth once [place] 00 every Medical month. [facility] ibandronate 2019-0 Yes [id number] 150mg Take 1 [facility] 150 mg 7-23 tablet by [facility] of tablet 00:00: mouth once [place] 00 every Medical month. [facility] ibandronate 2019-0 Yes [id number] 150mg Take 1 [facility] 150 mg 7-23 tablet by [facility] of tablet 00:00: mouth once [place] 00 every Medical month. [facility] ibandronate 2019-0 Yes [id number] 150mg Take 1 [facility] 150 mg 7-23 tablet by [facility] of tablet 00:00: mouth once [place] 00 every Medical month. [facility] ibandronate 2018-0 Yes [id number] 150mg Take 1 [facility] 150 mg 7-23 tablet by [facility] of tablet 00:00: mouth once [place] 00 every Medical month. [facility] ibandronate 2018- Yes [id number] 150mg Take 1 [facility] 150 mg 7-23 tablet by [facility] of tablet 00:00: mouth once [place] 00 every Medical month. [facility] ibandronate 2018- Yes [id number] 150mg Take 1 [facility] 150 mg 7-23 tablet by [facility] of tablet 00:00: mouth once [place] 00 every Medical month. Branch ibandronate 2020- No [id number] 150mg Take 1 [facility] 150 mg 7-23 -31 tablet by [facility] of tablet 00:00: 00:00 mouth once [place] 00 :00 every Medical month. [facility] amLODIPine 2018-0 Yes [id number] 5mg Take 1 [facility] 5 mg tablet 7-02 tablet by ity of 00:00: mouth at [place] 00 bedtime. Medical Branch amLODIPine 2018- 2019- No [id number] 5mg Take 1 [facility] 5 mg tablet 7-10 25- tablet by it y of 00:00: 00:00 mouth at [place] 00 :00 bedtime. Medical Branch amLODIPine 0 2019- No [id number] 5mg Take 1 [facility] 5 mg tablet 7-10 25- tablet by it y of 00:00: 00:00 mouth at [place] 00 :00 bedtime. Medical Branch NEXIUM 40 2019-0 Yes [id number] 40mg TAKE 1 U nivers mg capsule 6-25 CAPSULE BY ity of 00:00: MOUTH [place] 00 DAILY WITH Medical BREAKFAST. Branch BRAND MEDICALLY NECESSARY. NEXIUM 40 2019-0 Yes [id number] 40mg TAKE 1 U nivers mg capsule 6-25 CAPSULE BY ity of 00:00: MOUTH [place] 00 DAILY WITH Medical BREAKFAST. Branch BRAND MEDICALLY NECESSARY. NEXIUM 40 2019-0 Yes [id number] 40mg TAKE 1 U nivers mg capsule 6-25 CAPSULE BY ity of 00:00: MOUTH [place] 00 DAILY WITH Medical BREAKFAST. Branch BRAND MEDICALLY NECESSARY. NEXIUM 40 2019-0 Yes [id number] 40mg TAKE 1 U nivers mg capsule 6-25 CAPSULE BY ity of 00:00: MOUTH [place] 00 DAILY WITH Medical BREAKFAST. Branch BRAND MEDICALLY NECESSARY. NEXIUM 40 2018-0 Yes [id number] 40mg TAKE 1 U nivers mg capsule 6-25 CAPSULE BY ity of 00:00: MOUTH [place] 00 DAILY WITH Medical BREAKFAST. Branch BRAND MEDICALLY NECESSARY. NEXIUM 40 2018-0 Yes [id number] 40mg TAKE 1 U nivers mg capsule 6-25 CAPSULE BY ity of 00:00: MOUTH [place] 00 DAILY WITH Medical BREAKFAST. Branch BRAND MEDICALLY NECESSARY. NEXIUM 40 Yes [id number] 40mg TAKE 1 U nivers mg capsule 6-25 CAPSULE BY ity of 00:00: MOUTH [place] 00 DAILY WITH Medical BREAKFAST. Branch BRAND MEDICALLY NECESSARY. NEXIUM 40 0 Yes [id number] 40mg TAKE 1 U nivers mg capsule 6-25 CAPSULE BY ity of 00:00: MOUTH [place] 00 DAILY WITH Medical BREAKFAST. Branch BRAND MEDICALLY NECESSARY. NEXIUM 40 2018-0 Yes [id number] 40mg TAKE 1 U nivers mg capsule 6-25 CAPSULE BY ity of 00:00: MOUTH [place] 00 DAILY WITH Medical BREAKFAST. Branch BRAND MEDICALLY NECESSARY. NEXIUM 40 2018-0 Yes [id number] 40mg TAKE 1 [facility] nivers mg capsule 6-25 CAPSULE BY ity of 00:00: MOUTH [place] 00 DAILY WITH Medical BREAKFAST. Branch BRAND MEDICALLY NECESSARY. NEXIUM 40 2018-0 Yes [id number] 40mg TAKE 1 [facility] nivers mg capsule 6-25 CAPSULE BY ity of 00:00: MOUTH [place] 00 DAILY WITH Medical BREAKFAST. Branch BRAND MEDICALLY NECESSARY. NEXIUM 40 2018-0 Yes [id number] 40mg TAKE 1 U nivers mg capsule 6-25 CAPSULE BY ity of 00:00: MOUTH [place] 00 DAILY WITH Medical BREAKFAST. Branch BRAND MEDICALLY NECESSARY. NEXIUM 40 2019-0 Yes [id number] 40mg TAKE 1 [facility] nivers mg capsule 6-25 CAPSULE BY ity of 00:00: MOUTH [place] 00 DAILY WITH Medical BREAKFAST. Branch BRAND MEDICALLY NECESSARY. NEXIUM 40 Yes [id number] 40mg TAKE 1 [facility] nivers mg capsule 6-25 CAPSULE BY ity of 00:00: MOUTH [place] 00 DAILY WITH Medical BREAKFAST. Branch BRAND MEDICALLY NECESSARY. NEXIUM 40 0 Yes [id number] 40mg TAKE 1 [facility] nivers mg capsule 6-25 CAPSULE BY ity of 00:00: MOUTH [place] 00 DAILY WITH Medical BREAKFAST. Branch BRAND MEDICALLY NECESSARY. NEXIUM 40 Yes [id number] 40mg TAKE 1 [facility] nivers mg capsule 6-25 CAPSULE BY ity of 00:00: MOUTH [place] 00 DAILY WITH Medical BREAKFAST. Branch BRAND MEDICALLY NECESSARY. NEXIUM 40 Yes [id number] 40mg TAKE 1 [facility] nivers mg capsule 6-25 CAPSULE BY ity of 00:00: MOUTH [place] 00 DAILY WITH Medical BREAKFAST. Branch BRAND MEDICALLY NECESSARY. NEXIUM 40 Yes [id number] 40mg TAKE 1 [facility] nivers mg capsule 6-25 CAPSULE BY ity of 00:00: MOUTH [place] 00 DAILY WITH Medical BREAKFAST. Branch BRAND MEDICALLY NECESSARY. NEXIUM 40 Yes [id number] 40mg TAKE 1 [facility] nivers mg capsule 6-25 CAPSULE BY ity of 00:00: MOUTH [place] 00 DAILY WITH Medical BREAKFAST. Branch BRAND MEDICALLY NECESSARY. NEXIUM 40 Yes [id number] 40mg TAKE 1 [facility] nivers mg capsule 6-25 CAPSULE BY ity of 00:00: MOUTH [place] 00 DAILY WITH Medical BREAKFAST. Branch BRAND MEDICALLY NECESSARY. NEXIUM 40 Yes [id number] 40mg TAKE 1 [facility] nivers mg capsule 6-25 CAPSULE BY ity of 00:00: MOUTH [place] 00 DAILY WITH Medical BREAKFAST. Branch BRAND MEDICALLY NECESSARY. NEXIUM 40 0 Yes [id number] 40mg TAKE 1 [facility] nivers mg capsule 6-25 CAPSULE BY ity of 00:00: MOUTH [place] 00 DAILY WITH Medical BREAKFAST. Branch BRAND MEDICALLY NECESSARY. NEXIUM 40 0 Yes [id number] 40mg TAKE 1 [facility] mg capsule 6-25 CAPSULE BY ity of 00:00: MOUTH [place] 00 DAILY WITH Medical BREAKFAST. Branch BRAND MEDICALLY NECESSARY. NEXIUM 40 Yes [id number] 40mg TAKE 1 [facility] nivers mg capsule 6-25 CAPSULE BY ity of 00:00: MOUTH [place] 00 DAILY WITH Medical BREAKFAST. Branch BRAND MEDICALLY NECESSARY. NEXIUM 40 2018-0 Yes [id number] 40mg TAKE 1 [facility] nivers mg capsule 6-25 CAPSULE BY ity of 00:00: MOUTH [place] 00 DAILY WITH Medical BREAKFAST. Branch BRAND MEDICALLY NECESSARY. NEXIUM 40 0 Yes [id number] 40mg TAKE 1 [facility] nivers mg capsule 6-25 CAPSULE BY ity of 00:00: MOUTH [place] 00 DAILY WITH Medical BREAKFAST. Branch BRAND MEDICALLY NECESSARY. NEXIUM 40 Yes [id number] 40mg TAKE 1 [facility] mg capsule 6-25 CAPSULE BY ity of 00:00: MOUTH [place] 00 DAILY WITH Medical BREAKFAST. Branch BRAND MEDICALLY NECESSARY. NEXIUM 40 Yes [id number] 40mg TAKE 1 [facility] mg capsule 6-25 CAPSULE BY ity of 00:00: MOUTH [place] 00 DAILY WITH Medical BREAKFAST. Branch BRAND MEDICALLY NECESSARY. NEXIUM 40 0 Yes [id number] 40mg TAKE 1 [facility] mg capsule 6-25 CAPSULE BY ity of 00:00: MOUTH [place] 00 DAILY WITH Medical BREAKFAST. Branch BRAND MEDICALLY NECESSARY. NEXIUM 40 Yes [id number] 40mg TAKE 1 [facility] mg capsule 6-25 CAPSULE BY ity of 00:00: MOUTH [place] 00 DAILY WITH Medical BREAKFAST. Branch BRAND MEDICALLY NECESSARY. NEXIUM 40 0 Yes [id number] 40mg TAKE 1 [facility] mg capsule 6-25 CAPSULE BY ity of 00:00: MOUTH [place] 00 DAILY WITH Medical BREAKFAST. Branch BRAND MEDICALLY NECESSARY. NEXIUM 40 Yes [id number] 40mg TAKE 1 [facility] mg capsule 6-25 CAPSULE BY ity of 00:00: MOUTH [place] 00 DAILY WITH Medical BREAKFAST. Branch BRAND MEDICALLY NECESSARY. NEXIUM 40 0 Yes [id number] 40mg TAKE 1 [facility] n[facility] mg capsule 6-25 CAPSULE BY ity of 00:00: MOUTH [place] 00 DAILY WITH Medical BREAKFAST. Branch BRAND MEDICALLY NECESSARY. NEXIUM 40 2018-0 Yes [id number] 40mg TAKE 1 [facility] mg capsule 6-25 CAPSULE BY ity of 00:00: MOUTH [place] 00 DAILY WITH Medical BREAKFAST. Branch BRAND MEDICALLY NECESSARY. NEXIUM 40 2018-0 Yes [id number] 40mg TAKE 1 [facility] mg capsule 6-25 CAPSULE BY ity of 00:00: MOUTH [place] 00 DAILY WITH Medical BREAKFAST. Branch BRAND MEDICALLY NECESSARY. NEXIUM 40 2018-0 Yes [id number] 40mg TAKE 1 [facility] mg capsule 6-25 CAPSULE BY ity of 00:00: MOUTH [place] 00 DAILY WITH Medical BREAKFAST. Branch BRAND MEDICALLY NECESSARY. NEXIUM 40 2018-0 Yes [id number] 40mg TAKE 1 [facility] mg capsule 6-25 CAPSULE BY ity of 00:00: MOUTH [place] 00 DAILY WITH Medical BREAKFAST. Branch BRAND MEDICALLY NECESSARY. NEXIUM 40 2018- Yes [id number] 40mg TAKE 1 [facility] mg capsule 6-25 CAPSULE BY ity of 00:00: MOUTH [place] 00 DAILY WITH Medical BREAKFAST. Branch BRAND MEDICALLY NECESSARY. NEXIUM 40 Yes [id number] 40mg TAKE 1 [facility] mg capsule 6-25 CAPSULE BY ity of 00:00: MOUTH [place] 00 DAILY WITH Medical BREAKFAST. Branch BRAND MEDICALLY NECESSARY. NEXIUM 40 Yes [id number] 40mg TAKE 1 [facility] mg capsule 6-25 CAPSULE BY ity of 00:00: MOUTH [place] 00 DAILY WITH Medical BREAKFAST. Branch BRAND MEDICALLY NECESSARY. NEXIUM 40 Yes [id number] 40mg TAKE 1 [facility] mg capsule 6-25 CAPSULE BY ity of 00:00: MOUTH [place] 00 DAILY WITH Medical BREAKFAST. Branch BRAND MEDICALLY NECESSARY. NEXIUM 40 Yes [id number] 40mg TAKE 1 [facility] mg capsule 6-25 CAPSULE BY ity of 00:00: MOUTH [place] 00 DAILY WITH Medical BREAKFAST. Branch BRAND MEDICALLY NECESSARY. NEXIUM 40 Yes [id number] 40mg TAKE 1 [facility] mg capsule 6-25 CAPSULE BY ity of 00:00: MOUTH [place] 00 DAILY WITH Medical BREAKFAST. Branch BRAND MEDICALLY NECESSARY. NEXIUM 40 Yes [id number] 40mg TAKE 1 [facility] mg capsule 6-25 CAPSULE BY ity of 00:00: MOUTH [place] 00 DAILY WITH Medical BREAKFAST. Branch BRAND MEDICALLY NECESSARY. NEXIUM 40 2018- Yes [id number] 40mg TAKE 1 [facility] mg capsule 6-25 CAPSULE BY ity of 00:00: MOUTH [place] 00 DAILY WITH Medical BREAKFAST. Branch BRAND MEDICALLY NECESSARY. NEXIUM 40 2018-0 Yes [id number] 40mg TAKE 1 [facility] mg capsule 6-25 CAPSULE BY ity of 00:00: MOUTH [place] 00 DAILY WITH Medical BREAKFAST. Branch BRAND MEDICALLY NECESSARY. NEXIUM 40 Yes [id number] 40mg TAKE 1 [facility] mg capsule 6-25 CAPSULE BY ity of 00:00: MOUTH [place] 00 DAILY WITH Medical BREAKFAST. Branch BRAND MEDICALLY NECESSARY. NEXIUM 40 2019- 2020- No [id number] 40mg TAKE 1 [facility] mg capsule 6-25 07-28 CAPSULE BY it y of 00:00: 00:00 MOUTH [place] 00 :00 DAILY WITH Medical BREAKFAST. Branch BRAND MEDICALLY NECESSARY. TRIAMTERENE Yes [id number] TAKE 2 [facility] -HYDROCHLOR 5-30 TABLETS BY it y of OTHIAZID 00:00: MOUTH [place] 37.5-25 mg 00 DAILY. Medical tablet Branch TRIAMTERENE Yes [id number] TAKE 2 [facility] -HYDROCHLOR 5-30 TABLETS BY it y of OTHIAZID 00:00: MOUTH [place] 37.5-25 mg 00 DAILY. Medical tablet Branch TRIAMTERENE Yes [id number] TAKE 2 [facility] -HYDROCHLOR 5-30 TABLETS BY it y of OTHIAZID 00:00: MOUTH [place] 37.5-25 mg 00 DAILY. Medical tablet Branch TRIAMTERENE Yes [id number] TAKE 2 [facility] -HYDROCHLOR 5-30 TABLETS BY it y of OTHIAZID 00:00: MOUTH [place] 37.5-25 mg 00 DAILY. Medical tablet Branch TRIAMTERENE Yes [id number] TAKE 2 [facility] -HYDROCHLOR 5-30 TABLETS BY it y of OTHIAZID 00:00: MOUTH [place] 37.5-25 mg 00 DAILY. Medical tablet Branch TRIAMTERENE Yes [id number] TAKE 2 [facility] -HYDROCHLOR 5-30 TABLETS BY it y of OTHIAZID 00:00: MOUTH [place] 37.5-25 mg 00 DAILY. Medical tablet Branch TRIAMTERENE Yes [id number] TAKE 2 [facility] -HYDROCHLOR 5-30 TABLETS BY it y of OTHIAZID 00:00: MOUTH [place] 37.5-25 mg 00 DAILY. Medical tablet Branch TRIAMTERENE Yes [id number] TAKE 2 [facility] -HYDROCHLOR 5-30 TABLETS BY it y of OTHIAZID 00:00: MOUTH [place] 37.5-25 mg 00 DAILY. Medical tablet Branch TRIAMTERENE Yes [id number] TAKE 2 [facility] -HYDROCHLOR 5-30 TABLETS BY it y of OTHIAZID 00:00: MOUTH [place] 37.5-25 mg 00 DAILY. Medical tablet Branch TRIAMTERENE 2018-0 Yes [id number] TAKE 2 [facility] -HYDROCHLOR 5-30 TABLETS BY it y of OTHIAZID 00:00: MOUTH [place] 37.5-25 mg 00 DAILY. Medical tablet Branch TRIAMTERENE 2018-0 Yes [id number] TAKE 2 [facility] -HYDROCHLOR 5-30 TABLETS BY it y of OTHIAZID 00:00: MOUTH [place] 37.5-25 mg 00 DAILY. Medical tablet Branch TRIAMTERENE 2018-0 Yes [id number] TAKE 2 [facility] -HYDROCHLOR 5-30 TABLETS BY it y of OTHIAZID 00:00: MOUTH [place] 37.5-25 mg 00 DAILY. Medical tablet Branch TRIAMTERENE 2018-0 Yes [id number] TAKE 2 [facility] -HYDROCHLOR 5-30 TABLETS BY it y of OTHIAZID 00:00: MOUTH [place] 37.5-25 mg 00 DAILY. Medical tablet Branch LEVOTHYROXI 2019-0 Yes [id number] TAKE 1 [facility] NE 25 mcg 5-13 TABLET BY ity o f tablet 00:00: MOUTH [place] 00 EVERY Medical MORNING. Branch LEVOTHYROXI 2019-0 Yes [id number] TAKE 1 [facility] 25 mcg 5-13 TABLET BY ity o f tablet 00:00: MOUTH [place] 00 EVERY Medical MORNING. Branch LEVOTHYROXI 2019-0 Yes [id number] TAKE 1 [facility] 25 mcg 5-13 TABLET BY [facility] o f tablet 00:00: MOUTH [place] 00 EVERY Medical MORNING. Branch LEVOTHYROXI 2019-0 Yes [id number] TAKE 1 [facility] 25 mcg 5-13 TABLET BY [facility] o f tablet 00:00: MOUTH [place] 00 EVERY Medical MORNING. Branch LEVOTHYROXI 2019-0 Yes [id number] TAKE 1 [facility] 25 mcg 5-13 TABLET BY [facility] o f tablet 00:00: MOUTH [place] 00 EVERY Medical MORNING. Branch LEVOTHYROXI 2019-0 Yes [id number] TAKE 1 [facility] 25 mcg 5-13 TABLET BY [facility] o f tablet 00:00: MOUTH [place] 00 EVERY Medical MORNING. Branch LEVOTHYROXI 2019-0 Yes [id number] TAKE 1 [facility] 25 mcg 5-13 TABLET BY [facility] o f tablet 00:00: MOUTH [place] 00 EVERY Medical MORNING. Branch LEVOTHYROXI 2019-0 Yes [id number] TAKE 1 [facility] 25 mcg 5-13 TABLET BY [facility] o f tablet 00:00: MOUTH [place] 00 EVERY Medical MORNING. Branch LEVOTHYROXI 2019-0 Yes [id number] TAKE 1 [facility] 25 mcg 5-13 TABLET BY [facility] o f tablet 00:00: MOUTH [place] 00 EVERY Medical MORNING. Branch LEVOTHYROXI 2019-0 Yes [id number] TAKE 1 [facility] 25 mcg 5-13 TABLET BY [facility] o f tablet 00:00: MOUTH [place] 00 EVERY Medical MORNING. Branch LEVOTHYROXI 2019-0 Yes [id number] TAKE 1 [facility] 25 mcg 5-13 TABLET BY [facility] o f tablet 00:00: MOUTH [place] 00 EVERY Medical MORNING. Branch LEVOTHYROXI 2019-0 Yes [id number] TAKE 1 [facility] 25 mcg 5-13 TABLET BY [facility] o f tablet 00:00: MOUTH [place] 00 EVERY Medical MORNING. Branch LEVOTHYROXI 2019-0 Yes [id number] TAKE 1 [facility] 25 mcg 5-13 TABLET BY [facility] o f tablet 00:00: MOUTH [place] 00 EVERY Medical MORNING. Branch LEVOTHYROXI 2019-0 Yes [id number] TAKE 1 [facility] 25 mcg 5-13 TABLET BY [facility] o f tablet 00:00: MOUTH [place] 00 EVERY Medical MORNING. Branch LEVOTHYROXI 2019-0 Yes [id number] TAKE 1 [facility] 25 mcg 5-13 TABLET BY [facility] o f tablet 00:00: MOUTH [place] 00 EVERY Medical MORNING. Branch LEVOTHYROXI 2019-0 Yes [id number] TAKE 1 [facility] 25 mcg 5-13 TABLET BY [facility] o f tablet 00:00: MOUTH [place] 00 EVERY Medical MORNING. Branch LEVOTHYROXI 2019-0 Yes [id number] TAKE 1 [facility] 25 mcg 5-13 TABLET BY [facility] o f tablet 00:00: MOUTH [place] 00 EVERY Medical MORNING. Branch LEVOTHYROXI 2019-0 Yes [id number] TAKE 1 [facility] 25 mcg 5-13 TABLET BY [facility] o f tablet 00:00: MOUTH [place] 00 EVERY Medical MORNING. Branch LEVOTHYROXI 2019-0 Yes [id number] TAKE 1 [facility] 25 mcg 5-13 TABLET BY [facility] o f tablet 00:00: MOUTH [place] 00 EVERY Medical MORNING. Branch LEVOTHYROXI 2019-0 Yes [id number] TAKE 1 [facility] 25 mcg 5-13 TABLET BY [facility] o f tablet 00:00: MOUTH [place] 00 EVERY Medical MORNING. Branch LEVOTHYROXI 2019-0 Yes [id number] TAKE 1 [facility] 25 mcg 5-13 TABLET BY [facility] o f tablet 00:00: MOUTH [place] 00 EVERY Medical MORNING. Branch LEVOTHYROXI 2019-0 Yes [id number] TAKE 1 [facility] 25 mcg 5-13 TABLET BY [facility] o f tablet 00:00: MOUTH [place] 00 EVERY Medical MORNING. Branch LEVOTHYROXI 2019-0 Yes [id number] TAKE 1 [facility] 25 mcg 5-13 TABLET BY [facility] o f tablet 00:00: MOUTH [place] 00 EVERY Medical MORNING. Branch LEVOTHYROXI 2019-0 Yes [id number] TAKE 1 [facility] 25 mcg 5-13 TABLET BY [facility] o f tablet 00:00: MOUTH [place] 00 EVERY Medical MORNING. Branch LEVOTHYROXI 2019-0 Yes [id number] TAKE 1 [facility] 25 mcg 5-13 TABLET BY [facility] o f tablet 00:00: MOUTH [place] 00 EVERY Medical MORNING. Branch LEVOTHYROXI 2019-0 Yes [id number] TAKE 1 [facility] 25 mcg 5-13 TABLET BY [facility] o f tablet 00:00: MOUTH [place] 00 EVERY Medical MORNING. Branch LEVOTHYROXI 2019-0 Yes [id number] TAKE 1 [facility] 25 mcg 5-13 TABLET BY [facility] o f tablet 00:00: MOUTH [place] 00 EVERY Medical MORNING. Branch LEVOTHYROXI 2019-0 Yes [id number] TAKE 1 [facility] 25 mcg 5-13 TABLET BY [facility] o f tablet 00:00: MOUTH [place] 00 EVERY Medical MORNING. Branch LEVOTHYROXI 2019-0 2020- No [id number] TAKE 1 [facility] 25 mcg 5-13 03-24 TABLET BY ity of tablet 00:00: 00:00 MOUTH [place] 00 :00 EVERY Medical MORNING. Branch traZODONE 2019-0 Yes [id number] 100mg Take 1 [facility] 100 mg 4-11 tablet by it[facility] of tablet 00:00: mouth at [place] 00 bedtime. Medical For Branch insomnia. traZODONE 2019-0 Yes [id number] 100mg Take 1 [facility] 100 mg 4-11 tablet by ity of tablet 00:00: mouth at [place] 00 bedtime. Medical For Branch insomnia. traZODONE 2019-0 Yes [id number] 100mg Take 1 [facility] 100 mg 4-11 tablet by ity of tablet 00:00: mouth at [place] 00 bedtime. Medical For Branch insomnia. traZODONE 2019-0 Yes [id number] 100mg Take 1 [facility] 100 mg 4-11 tablet by ity of tablet 00:00: mouth at [place] [address] bedtime. Medical For Branch insomnia. traZODONE 2019-0 Yes [id number] 100mg Take 1 [facility] 100 mg 4-11 tablet by it[facility] of tablet 00:00: mouth at [place] [address] bedtime. Medical For Branch insomnia. traZODONE 2019-0 Yes [id number] 100mg Take 1 [facility] 100 mg 4-11 tablet by ity of tablet 00:00: mouth at [place] [address] bedtime. Medical For Branch insomnia. traZODONE 2019-0 Yes [id number] 100mg Take 1 [facility] 100 mg 4-11 tablet by ity of tablet 00:00: mouth at [place] [address] bedtime. Medical For Branch insomnia. traZODONE 2019-0 Yes [id number] 100mg Take 1 [facility] 100 mg 4-11 tablet by ity of tablet 00:00: mouth at [place] [address] bedtime. Medical For Branch insomnia. traZODONE 2019-0 Yes [id number] 100mg Take 1 [facility] 100 mg 4-11 tablet by ity of tablet 00:00: mouth at [place] [address] bedtime. Medical For Branch insomnia. traZODONE 2019-0 Yes [id number] 100mg Take 1 [facility] 100 mg 4-11 tablet by ity of tablet 00:00: mouth at [place] [address] bedtime. Medical For Branch insomnia. traZODONE 2019-0 Yes [id number] 100mg Take 1 [facility] 100 mg 4-11 tablet by ity of tablet 00:00: mouth at [place] [address] bedtime. Medical For Branch insomnia. traZODONE 2019-0 Yes [id number] 100mg Take 1 [facility] 100 mg 4-11 tablet by ity of tablet 00:00: mouth at [place] [address] bedtime. Medical For Branch insomnia. traZODONE 2019-0 Yes [id number] 100mg Take 1 [facility] 100 mg 4-11 tablet by [facility] of tablet 00:00: mouth at [place] [address] bedtime. Medical For Branch insomnia. metformin 2018-0 Yes [id number] 500mg Take 1 [facility] 500 mg 4-09 tablet by [facility] o f 24 hr 00:00: mouth [place] tablet 00 daily with Medical breakfast. Branch metformin 2019-0 Yes [id number] 500mg Take 1 [facility] ER 500 mg 4-09 tablet by ity o f 24 hr 00:00: mouth [place] tablet 00 daily with Medical breakfast. Branch metformin 2018- Yes [id number] 500mg Take 1 [facility] 500 mg 4-09 tablet by it[facility] o f 24 hr 00:00: mouth [place] tablet 00 daily with Medical breakfast. Branch metformin 2018-0 Yes [id number] 500mg Take 1 [facility] 500 mg 4-09 tablet by it[facility] o f 24 hr 00:00: mouth [place] tablet 00 daily with Medical breakfast. Branch metformin 2018- Yes [id number] 500mg Take 1 [facility] 500 mg 4-09 tablet by it[facility] o f 24 hr 00:00: mouth [place] tablet 00 daily with Medical breakfast. Branch metformin Yes [id number] 500mg Take 1 [facility] 500 mg 4-09 tablet by ity o f 24 hr 00:00: mouth [place] tablet 00 daily with Medical breakfast. Branch metformin Yes [id number] 500mg Take 1 [facility] 500 mg 4-09 tablet by it[facility] o f 24 hr 00:00: mouth [place] tablet 00 daily with Medical breakfast. Branch metformin Yes [id number] 500mg Take 1 [facility] 500 mg 4-09 tablet by ity o f 24 hr 00:00: mouth [place] tablet 00 daily with Medical breakfast. Branch metformin Yes [id number] 500mg Take 1 [facility] 500 mg 4-09 tablet by ity o f 24 hr 00:00: mouth [place] tablet 00 daily with Medical breakfast. Branch metformin Yes [id number] 500mg Take 1 [facility] 500 mg 4-09 tablet by it[facility] o f 24 hr 00:00: mouth [place] tablet 00 daily with Medical breakfast. Branch metformin Yes [id number] 500mg Take 1 [facility] 500 mg 4-09 tablet by ity o f 24 hr 00:00: mouth [place] tablet 00 daily with Medical breakfast. Branch metformin Yes [id number] 500mg Take 1 [facility] 500 mg 4-09 tablet by ity o f 24 hr 00:00: mouth [place] tablet 00 daily with Medical breakfast. Branch metformin Yes [id number] 500mg Take 1 [facility] ER 500 mg 4-09 tablet by ity o f 24 hr 00:00: mouth [place] tablet 00 daily with Medical breakfast. Branch ciclopirox 2018- Yes [id number] Apply to [facility] 8 % 3-28 area(s) at [facility] of solution 00:00: bedtime. [place] 00 Apply to Medical Nails. Branch ciclopirox 2019-0 Yes [id number] Apply to [facility] 8 % 3-28 area(s) at [facility]y of solution 00:00: bedtime. [place] 00 Apply to Medical Nails. Branch ciclopirox 2019-0 Yes [id number] Apply to [facility] 8 % 3-28 area(s) at ity of solution 00:00: bedtime. [place] 00 Apply to Medical Nails. Branch ciclopirox 2019-0 Yes [id number] Apply to [facility] 8 % 3-28 area(s) at ity of solution 00:00: bedtime. [place] 00 Apply to Medical Nails. Branch ciclopirox 2019-0 Yes [id number] Apply to [facility] 8 % 3-28 area(s) at ity of solution 00:00: bedtime. [place] 00 Apply to Medical Nails. Branch ciclopirox 2019-0 Yes [id number] Apply to [facility] 8 % 3-28 area(s) at ity of solution 00:00: bedtime. [place] 00 Apply to Medical Nails. Branch ciclopirox 2019-0 Yes [id number] Apply to [facility] 8 % 3-28 area(s) at ity of solution 00:00: bedtime. [place] 00 Apply to Medical Nails. Branch ciclopirox 2019-0 Yes [id number] Apply to [facility] 8 % 3-28 area(s) at ity of solution 00:00: bedtime. [place] 00 Apply to Medical Nails. Branch ciclopirox 2019-0 Yes [id number] Apply to [facility] 8 % 3-28 area(s) at ity of solution 00:00: bedtime. [place] 00 Apply to Medical Nails. Branch ciclopirox 2019-0 Yes [id number] Apply to [facility] 8 % 3-28 area(s) at ity of solution 00:00: bedtime. [place] 00 Apply to Medical Nails. Branch ciclopirox 2019-0 Yes [id number] Apply to [facility] 8 % 3-28 area(s) at ity of solution 00:00: bedtime. [place] 00 Apply to Medical Nails. Branch ciclopirox 2019-0 Yes [id number] Apply to [facility] 8 % 3-28 area(s) at ity of solution 00:00: bedtime. [place] 00 Apply to Medical Nails. Branch ciclopirox 2019-0 Yes [id number] Apply to [facility] 8 % 3-28 area(s) at ity of solution 00:00: bedtime. [place] 00 Apply to Medical Nails. Branch ciclopirox 2019-0 Yes [id number] Apply to [facility] 8 % 3-28 area(s) at ity of solution 00:00: bedtime. [place] 00 Apply to Medical Nails. Branch ciclopirox 2019-0 Yes [id number] Apply to [facility] 8 % 3-28 area(s) at ity of solution 00:00: bedtime. [place] 00 Apply to Medical Nails. Branch ciclopirox 2019-0 Yes [id number] Apply to [facility] 8 % 3-28 area(s) at ity of solution 00:00: bedtime. [place] 00 Apply to Medical Nails. Branch ciclopirox 2019-0 Yes [id number] Apply to [facility] 8 % 3-28 area(s) at ity of solution 00:00: bedtime. [place] 00 Apply to Medical Nails. Branch ciclopirox 2019-0 Yes [id number] Apply to [facility] 8 % 3-28 area(s) at ity of solution 00:00: bedtime. [place] 00 Apply to Medical Nails. Branch ciclopirox 2019-0 Yes [id number] Apply to [facility] 8 % 3-28 area(s) at ity of solution 00:00: bedtime. [place] 00 Apply to Medical Nails. Branch ciclopirox 2019-0 Yes [id number] Apply to [facility] 8 % 3-28 area(s) at ity of solution 00:00: bedtime. [place] 00 Apply to Medical Nails. Branch ciclopirox 2019-0 Yes [id number] Apply to [facility] 8 % 3-28 area(s) at ity of solution 00:00: bedtime. [place] 00 Apply to Medical Nails. Branch ciclopirox 2019-0 Yes [id number] Apply to [facility] 8 % 3-28 area(s) at ity of solution 00:00: bedtime. [place] 00 Apply to Medical Nails. Branch ciclopirox 2019-0 Yes [id number] Apply to [facility] 8 % 3-28 area(s) at ity of solution 00:00: bedtime. [place] 00 Apply to Medical Nails. Branch ciclopirox 2019-0 Yes [id number] Apply to [facility] 8 % 3-28 area(s) at ity of solution 00:00: bedtime. [place] 00 Apply to Medical Nails. Branch ciclopirox 2019-0 Yes [id number] Apply to [facility] 8 % 3-28 area(s) at ity of solution 00:00: bedtime. [place] 00 Apply to Medical Nails. Branch ciclopirox 2019-0 Yes [id number] Apply to [facility] 8 % 3-28 area(s) at ity of solution 00:00: bedtime. [place] 00 Apply to Medical Nails. Branch ciclopirox 2019-0 Yes [id number] Apply to [facility] 8 % 3-28 area(s) at ity of solution 00:00: bedtime. [place] 00 Apply to Medical Nails. Branch ciclopirox 2019-0 Yes [id number] Apply to [facility] 8 % 3-28 area(s) at ity of solution 00:00: bedtime. [place] 00 Apply to Medical Nails. Branch ciclopirox 2019-0 Yes [id number] Apply to [facility] 8 % 3-28 area(s) at ity of solution 00:00: bedtime. [place] 00 Apply to Medical Nails. Branch ciclopirox 2019-0 Yes [id number] Apply to [facility] 8 % 3-28 area(s) at ity of solution 00:00: bedtime. [place] 00 Apply to Medical Nails. Branch ciclopirox 2019-0 Yes [id number] Apply to [facility] 8 % 3-28 area(s) at ity of solution 00:00: bedtime. [place] 00 Apply to Medical Nails. Branch ciclopirox 2019-0 Yes [id number] Apply to [facility] 8 % 3-28 area(s) at ity of solution 00:00: bedtime. [place] 00 Apply to Medical Nails. Branch ciclopirox 2019-0 Yes [id number] Apply to [facility] 8 % 3-28 area(s) at ity of solution 00:00: bedtime. [place] 00 Apply to Medical Nails. Branch ciclopirox 2019-0 Yes [id number] Apply to [facility] 8 % 3-28 area(s) at ity of solution 00:00: bedtime. [place] 00 Apply to Medical Nails. Branch ciclopirox 2019-0 Yes [id number] Apply to [facility] 8 % 3-28 area(s) at ity of solution 00:00: bedtime. [place] 00 Apply to Medical Nails. Branch ciclopirox 2019-0 Yes [id number] Apply to [facility] 8 % 3-28 area(s) at ity of solution 00:00: bedtime. [place] 00 Apply to Medical Nails. Branch ciclopirox 2019-0 Yes [id number] Apply to [facility] 8 % 3-28 area(s) at ity of solution 00:00: bedtime. [place] 00 Apply to Medical Nails. Branch ciclopirox 2019-0 Yes [id number] Apply to [facility] 8 % 3-28 area(s) at ity of solution 00:00: bedtime. [place] 00 Apply to Medical Nails. Branch ciclopirox 2019-0 Yes [id number] Apply to [facility] 8 % 3-28 area(s) at ity of solution 00:00: bedtime. [place] 00 Apply to Medical Nails. Branch ciclopirox 2019-0 Yes [id number] Apply to [facility] 8 % 3-28 area(s) at ity of solution 00:00: bedtime. [place] 00 Apply to Medical Nails. Branch ciclopirox 2019-0 Yes [id number] Apply to [facility] 8 % 3-28 area(s) at ity of solution 00:00: bedtime. [place] 00 Apply to Medical Nails. Branch ciclopirox 2019-0 Yes [id number] Apply to [facility] 8 % 3-28 area(s) at ity of solution 00:00: bedtime. [place] 00 Apply to Medical Nails. Branch ciclopirox 2019-0 Yes [id number] Apply to [facility] 8 % 3-28 area(s) at ity of solution 00:00: bedtime. [place] 00 Apply to Medical Nails. Branch ciclopirox 2019-0 Yes [id number] Apply to [facility] 8 % 3-28 area(s) at ity of solution 00:00: bedtime. [place] 00 Apply to Medical Nails. Branch ciclopirox 2019-0 Yes [id number] Apply to [facility] 8 % 3-28 area(s) at ity of solution 00:00: bedtime. [place] 00 Apply to Medical Nails. Branch ciclopirox 2019-0 Yes [id number] Apply to [facility] 8 % 3-28 area(s) at ity of solution 00:00: bedtime. [place] 00 Apply to Medical Nails. Branch ciclopirox 2019-0 Yes [id number] Apply to [facility] 8 % 3-28 area(s) at ity of solution 00:00: bedtime. [place] 00 Apply to Medical Nails. Branch ciclopirox 2019-0 Yes [id number] Apply to [facility] 8 % 3-28 area(s) at ity of solution 00:00: bedtime. [place] 00 Apply to Medical Nails. Branch ciclopirox 2019-0 Yes [id number] Apply to [facility] 8 % 3-28 area(s) at ity of solution 00:00: bedtime. [place] 00 Apply to Medical Nails. Branch ciclopirox 2019-0 Yes [id number] Apply to [facility] 8 % 3-28 area(s) at ity of solution 00:00: bedtime. [place] 00 Apply to Medical Nails. Branch ciclopirox 2019-0 Yes [id number] Apply to [facility] 8 % 3-28 area(s) at ity of solution 00:00: bedtime. [place] 00 Apply to Medical Nails. Branch ciclopirox 2019-0 Yes [id number] Apply to [facility] 8 % 3-28 area(s) at ity of solution 00:00: bedtime. [place] 00 Apply to Medical Nails. Branch ciclopirox 2019-0 Yes [id number] Apply to [facility] 8 % 3-28 area(s) at ity of solution 00:00: bedtime. [place] 00 Apply to Medical Nails. Branch ciclopirox 2019-0 Yes [id number] Apply to [facility] 8 % 3-28 area(s) at ity of solution 00:00: bedtime. [place] 00 Apply to Medical Nails. Branch ciclopirox 2019-0 Yes [id number] Apply to [facility] 8 % 3-28 area(s) at ity of solution 00:00: bedtime. [place] 00 Apply to Medical Nails. Branch ciclopirox 2019-0 Yes [id number] Apply to [facility] 8 % 3-28 area(s) at ity of solution 00:00: bedtime. [place] 00 Apply to Medical Nails. Branch ciclopirox 2019-0 Yes [id number] Apply to [facility] 8 % 3-28 area(s) at ity of solution 00:00: bedtime. [place] 00 Apply to Medical Nails. Branch ciclopirox 2019-0 Yes [id number] Apply to [facility] 8 % 3-28 area(s) at ity of solution 00:00: bedtime. [place] 00 Apply to Medical Nails. Branch ciclopirox 2019-0 Yes [id number] Apply to [facility] 8 % 3-28 area(s) at ity of solution 00:00: bedtime. [place] 00 Apply to Medical Nails. Branch ciclopirox 2019-0 Yes [id number] Apply to [facility] 8 % 3-28 area(s) at ity of solution 00:00: bedtime. [place] 00 Apply to Medical Nails. Branch ciclopirox 2019-0 Yes [id number] Apply to [facility] 8 % 3-28 area(s) at ity of solution 00:00: bedtime. [place] 00 Apply to Medical Nails. Branch ciclopirox 2019-0 Yes [id number] Apply to [facility] 8 % 3-28 area(s) at ity of solution 00:00: bedtime. [place] 00 Apply to Medical Nails. Branch ciclopirox 2019-0 Yes [id number] Apply to [facility] 8 % 3-28 area(s) at ity of solution 00:00: bedtime. [place] 00 Apply to Medical Nails. Branch ciclopirox 2019-0 Yes [id number] Apply to [facility] 8 % 3-28 area(s) at ity of solution 00:00: bedtime. [place] 00 Apply to Medical Nails. Branch ciclopirox 2019-0 Yes [id number] Apply to [facility] 8 % 3-28 area(s) at ity of solution 00:00: bedtime. [place] 00 Apply to Medical Nails. Branch ciclopirox 2019-0 Yes [id number] Apply to [facility] 8 % 3-28 area(s) at ity of solution 00:00: bedtime. [place] 00 Apply to Medical Nails. Branch ciclopirox 2019-0 Yes [id number] Apply to [facility] 8 % 3-28 area(s) at ity of solution 00:00: bedtime. [place] 00 Apply to Medical Nails. Branch ciclopirox 2019-0 Yes [id number] Apply to [facility] 8 % 3-28 area(s) at ity of solution 00:00: bedtime. [place] 00 Apply to Medical Nails. Branch ciclopirox 2019-0 Yes [id number] Apply to [facility] 8 % 3-28 area(s) at ity of solution 00:00: bedtime. [place] 00 Apply to Medical Nails. Branch ciclopirox 2019-0 Yes [id number] Apply to [facility] 8 % 3-28 area(s) at ity of solution 00:00: bedtime. [place] 00 Apply to Medical Nails. Branch ciclopirox 2019-0 Yes [id number] Apply to [facility] 8 % 3-28 area(s) at ity of solution 00:00: bedtime. [place] 00 Apply to Medical Nails. Branch ciclopirox 2019-0 Yes [id number] Apply to [facility] 8 % 3-28 area(s) at ity of solution 00:00: bedtime. [place] 00 Apply to Medical Nails. Branch ciclopirox 2019-0 Yes [id number] Apply to [facility] 8 % 3-28 area(s) at ity of solution 00:00: bedtime. [place] 00 Apply to Medical Nails. Branch ciclopirox 2019-0 Yes [id number] Apply to [facility] 8 % 3-28 area(s) at ity of solution 00:00: bedtime. [place] 00 Apply to Medical Nails. Branch ciclopirox 2019-0 Yes [id number] Apply to [facility] 8 % 3-28 area(s) at ity of solution 00:00: bedtime. [place] 00 Apply to Medical Nails. Branch ciclopirox 2019-0 Yes [id number] Apply to [facility] 8 % 3-28 area(s) at ity of solution 00:00: bedtime. [place] 00 Apply to Medical Nails. Branch ciclopirox 2019-0 Yes [id number] Apply to [facility] 8 % 3-28 area(s) at ity of solution 00:00: bedtime. [place] 00 Apply to Medical Nails. Branch ciclopirox 2019-0 Yes [id number] Apply to [facility] 8 % 3-28 area(s) at ity of solution 00:00: bedtime. [place] 00 Apply to Medical Nails. Branch ciclopirox 2019-0 Yes [id number] Apply to [facility] 8 % 3-28 area(s) at ity of solution 00:00: bedtime. [place] 00 Apply to Medical Nails. Branch ciclopirox 2019-0 Yes [id number] Apply to [facility] 8 % 3-28 area(s) at ity of solution 00:00: bedtime. [place] 00 Apply to Medical Nails. Branch ciclopirox 2019-0 Yes [id number] Apply to [facility] 8 % 3-28 area(s) at ity of solution 00:00: bedtime. [place] 00 Apply to Medical Nails. Branch ciclopirox 2019-0 Yes [id number] Apply to [facility] 8 % 3-28 area(s) at ity of solution 00:00: bedtime. [place] 00 Apply to Medical Nails. Branch ciclopirox 2019-0 Yes [id number] Apply to [facility] 8 % 3-28 area(s) at ity of solution 00:00: bedtime. [place] 00 Apply to Medical Nails. Branch ciclopirox 2019-0 Yes [id number] Apply to [facility] 8 % 3-28 area(s) at ity of solution 00:00: bedtime. [place] 00 Apply to Medical Nails. Branch ciclopirox 2019-0 Yes [id number] Apply to [facility] 8 % 3-28 area(s) at ity of solution 00:00: bedtime. [place] 00 Apply to Medical Nails. Branch ciclopirox 2019-0 Yes [id number] Apply to [facility] 8 % 3-28 area(s) at ity of solution 00:00: bedtime. [place] 00 Apply to Medical Nails. Branch ciclopirox 2019-0 Yes [id number] Apply to [facility] 8 % 3-28 area(s) at ity of solution 00:00: bedtime. [place] 00 Apply to Medical Nails. Branch ciclopirox 2019-0 Yes [id number] Apply to [facility] 8 % 3-28 area(s) at ity of solution 00:00: bedtime. [place] 00 Apply to Medical Nails. Branch ciclopirox 2019-0 Yes [id number] Apply to [facility] 8 % 3-28 area(s) at ity of solution 00:00: bedtime. [place] 00 Apply to Medical Nails. Branch ciclopirox 2019-0 Yes [id number] Apply to [facility] 8 % 3-28 area(s) at ity of solution 00:00: bedtime. [place] 00 Apply to Medical Nails. Branch ciclopirox 2019-0 Yes [id number] Apply to [facility] 8 % 3-28 area(s) at ity of solution 00:00: bedtime. [place] 00 Apply to Medical Nails. Branch ciclopirox 2019-0 Yes [id number] Apply to [facility] 8 % 3-28 area(s) at ity of solution 00:00: bedtime. [place] 00 Apply to Medical Nails. Branch ciclopirox 2019-0 Yes [id number] Apply to [facility] 8 % 3-28 area(s) at ity of solution 00:00: bedtime. [place] 00 Apply to Medical Nails. Branch ciclopirox 2019-0 Yes [id number] Apply to [facility] 8 % 3-28 area(s) at ity of solution 00:00: bedtime. [place] 00 Apply to Medical Nails. Branch ciclopirox 2019-0 Yes [id number] Apply to [facility] 8 % 3-28 area(s) at ity of solution 00:00: bedtime. [place] 00 Apply to Medical Nails. Branch ciclopirox 2019-0 Yes [id number] Apply to [facility] 8 % 3-28 area(s) at ity of solution 00:00: bedtime. [place] 00 Apply to Medical Nails. Branch ciclopirox 2019-0 Yes [id number] Apply to [facility] 8 % 3-28 area(s) at ity of solution 00:00: bedtime. [place] 00 Apply to Medical Nails. Branch ciclopirox 2019-0 Yes [id number] Apply to [facility] 8 % 3-28 area(s) at ity of solution 00:00: bedtime. [place] 00 Apply to Medical Nails. Branch ciclopirox 2019-0 Yes [id number] Apply to [facility] 8 % 3-28 area(s) at ity of solution 00:00: bedtime. [place] 00 Apply to Medical Nails. Branch ciclopirox 2019-0 Yes [id number] Apply to [facility] 8 % 3-28 area(s) at ity of solution 00:00: bedtime. [place] 00 Apply to Medical Nails. Branch ciclopirox 2019-0 Yes [id number] Apply to [facility] 8 % 3-28 area(s) at ity of solution 00:00: bedtime. [place] 00 Apply to Medical Nails. Branch ciclopirox 2019-0 Yes [id number] Apply to [facility] 8 % 3-28 area(s) at ity of solution 00:00: bedtime. [place] 00 Apply to Medical Nails. Branch ciclopirox 2019-0 Yes [id number] Apply to [facility] 8 % 3-28 area(s) at ity of solution 00:00: bedtime. [place] 00 Apply to Medical Nails. Branch ciclopirox 2019-0 Yes [id number] Apply to [facility] 8 % 3-28 area(s) at ity of solution 00:00: bedtime. [place] 00 Apply to Medical Nails. Branch ciclopirox 2019-0 Yes [id number] Apply to [facility] 8 % 3-28 area(s) at ity of solution 00:00: bedtime. [place] 00 Apply to Medical Nails. Branch ciclopirox 2019-0 Yes [id number] Apply to [facility] 8 % 3-28 area(s) at ity of solution 00:00: bedtime. [place] 00 Apply to Medical Nails. Branch ciclopirox 2019-0 Yes [id number] Apply to [facility] 8 % 3-28 area(s) at ity of solution 00:00: bedtime. [place] 00 Apply to [facility]. Branch ciclopirox 2019-0 Yes [id number] Apply to Univers 8 % 3-28 area(s) at ity of solution 00:00: bedtime. [place] 00 Apply to [facility]. Branch ciclopirox 2019-0 Yes [id number] Apply to Univers 8 % 3-28 area(s) at ity of solution 00:00: bedtime. [place] 00 Apply to [facility]. Branch ciclopirox 2019-0 Yes [id number] Apply to Univers 8 % 3-28 area(s) at ity of solution 00:00: bedtime. [place] 00 Apply to [facility]. Branch ciclopirox 2019-0 Yes [id number] Apply to Univers 8 % 3-28 area(s) at ity of solution 00:00: bedtime. [place] 00 Apply to [facility]. Branch ciclopirox 2019-0 Yes [id number] Apply to Univers 8 % 3-28 area(s) at ity of solution 00:00: bedtime. [place] 00 Apply to [facility]. Branch ciclopirox 2019-0 Yes [id number] Apply to Univers 8 % 3-28 area(s) at ity of solution 00:00: bedtime. [place] 00 Apply to [facility]. Branch ciclopirox 2019-0 Yes [id number] Apply to Univers 8 % 3-28 area(s) at ity of solution 00:00: bedtime. [place] 00 Apply to [facility]. Branch ciclopirox 2019-0 Yes [id number] Apply to Univers 8 % 3-28 area(s) at ity of solution 00:00: bedtime. [place] 00 Apply to [facility]. Branch ciclopirox 2019-0 Yes [id number] Apply to Univers 8 % 3-28 area(s) at ity of solution 00:00: bedtime. [place] 00 Apply to [facility]. Branch ciclopirox 2019-0 Yes [id number] Apply to Univers 8 % 3-28 area(s) at ity of solution 00:00: bedtime. [place] 00 Apply to [facility]. Branch ciclopirox 2019-0 Yes [id number] Apply to Univers 8 % 3-28 area(s) at ity of solution 00:00: bedtime. [place] 00 Apply to [facility]. Branch ciclopirox 2019-0 Yes [id number] Apply to Univers 8 % 3-28 area(s) at ity of solution 00:00: bedtime. [place] 00 Apply to [facility]. Branch ciclopirox 2019-0 Yes [id number] Apply to Univers 8 % 3-28 area(s) at ity of solution 00:00: bedtime. [place] 00 Apply to [facility]. Branch ciclopirox 2019-0 Yes [id number] Apply to Univers 8 % 3-28 area(s) at ity of solution 00:00: bedtime. [place] 00 Apply to [facility]. Branch ciclopirox 2019-0 Yes [id number] Apply to Univers 8 % 3-28 area(s) at ity of solution 00:00: bedtime. [place] 00 Apply to [facility]. Branch ciclopirox 2019-0 Yes [id number] Apply to Univers 8 % 3-28 area(s) at ity of solution 00:00: bedtime. [place] 00 Apply to [facility]. Branch ciclopirox 2019-0 Yes [id number] Apply to Univers 8 % 3-28 area(s) at ity of solution 00:00: bedtime. [place] 00 Apply to [facility]. Branch ciclopirox 2019-0 Yes [id number] Apply to Univers 8 % 3-28 area(s) at ity of solution 00:00: bedtime. [place] 00 Apply to [facility]. Branch ciclopirox 2019-0 Yes [id number] Apply to Univers 8 % 3-28 area(s) at ity of solution 00:00: bedtime. [place] 00 Apply to [facility]. Branch ciclopirox 2019-0 Yes [id number] Apply to Univers 8 % 3-28 area(s) at ity of solution 00:00: bedtime. [place] 00 Apply to [facility]. Branch ciclopirox 2019-0 Yes [id number] Apply to Univers 8 % 3-28 area(s) at ity of solution 00:00: bedtime. [place] 00 Apply to [facility]. Branch ciclopirox 2019-0 Yes [id number] Apply to Univers 8 % 3-28 area(s) at ity of solution 00:00: bedtime. [place] 00 Apply to [facility]. Branch ciclopirox 2019-0 Yes [id number] Apply to Univers 8 % 3-28 area(s) at ity of solution 00:00: bedtime. [place] 00 Apply to [facility]. Branch ciclopirox 2019-0 Yes [id number] Apply to Univers 8 % 3-28 area(s) at ity of solution 00:00: bedtime. [place] 00 Apply to [facility]. Branch ciclopirox 2019-0 Yes [id number] Apply to Univers 8 % 3-28 area(s) at ity of solution 00:00: bedtime. [place] 00 Apply to [facility]. Branch ciclopirox 2019-0 Yes [id number] Apply to Univers 8 % 3-28 area(s) at ity of solution 00:00: bedtime. [place] 00 Apply to [facility]. Branch ciclopirox 2019-0 Yes [id number] Apply to Univers 8 % 3-28 area(s) at ity of solution 00:00: bedtime. [place] 00 Apply to [facility]. Branch ciclopirox 2019-0 Yes [id number] Apply to Univers 8 % 3-28 area(s) at ity of solution 00:00: bedtime. [place] 00 Apply to [facility]. Branch ciclopirox 2019-0 Yes [id number] Apply to Univers 8 % 3-28 area(s) at ity of solution 00:00: bedtime. [place] 00 Apply to [facility]. Branch ciclopirox 2019-0 Yes [id number] Apply to Univers 8 % 3-28 area(s) at ity of solution 00:00: bedtime. [place] 00 Apply to [facility]. Branch ciclopirox 2019-0 Yes [id number] Apply to Univers 8 % 3-28 area(s) at ity of solution 00:00: bedtime. [place] 00 Apply to [facility]. Branch ciclopirox 2019-0 Yes [id number] Apply to Univers 8 % 3-28 area(s) at ity of solution 00:00: bedtime. [place] 00 Apply to [facility]. Branch ciclopirox 2019-0 Yes [id number] Apply to Univers 8 % 3-28 area(s) at ity of solution 00:00: bedtime. [place] 00 Apply to [facility]. Branch ciclopirox 2019-0 Yes [id number] Apply to Univers 8 % 3-28 area(s) at ity of solution 00:00: bedtime. [place] 00 Apply to [facility]. Branch ciclopirox 2019-0 Yes [id number] Apply to Univers 8 % 3-28 area(s) at ity of solution 00:00: bedtime. [place] 00 Apply to [facility]. Branch ciclopirox 2019-0 Yes [id number] Apply to Univers 8 % 3-28 area(s) at ity of solution 00:00: bedtime. [place] 00 Apply to [facility]. Branch ciclopirox 2019-0 Yes [id number] Apply to Univers 8 % 3-28 area(s) at ity of solution 00:00: bedtime. [place] 00 Apply to [facility]. Branch alcaftadine 2019-[address] [facility] ([facility] 1-23 each eye. ity of 0.25 % Drop 20:36: [place] 33 Medical Branch CYCLOSPORIN Yes Place in U nivers E (RESTASIS 1-23 each eye. ity of OPHTHALMIC) 20:36: [place] [address] Medical Branch ASCORBATE 2018-0 Yes Take by Univ ers CALCIUM 1-23 mouth. ity of (VITAMIN C 20:36: [place] ORAL) Medical Branch DOCOSAHEXAN Yes Take by Un [place] OIC - mouth. ity of ACID/EPA 20:36: [place] (FISH OIL 33 Medical ORAL) Branch vitamin E Yes 1000U Take 1,000 U nivers 1,000 unit 1-23 Units by ity o f capsule 20:36: mouth [place] 33 daily. Medical Branch Magnesium Yes Take by Univ ers 250 mg Tab - mouth. ity of 20:36: [place] [address] Medical Branch vitamin B-6 Yes 100mg Take 100 U nivers (VITAMIN 1-23 mg by ity of B-6) 100 mg 20:36: mouth [place] tablet 33 daily. Medical Branch CALCIUM Yes Take by Univer s CARBONATE/V 10-09 mouth. ity of ITAMIN D3 20:36: [place] ([place] [address] Medical D-3 ORAL) Branch alcaftadine Yes Place in U nivers (LASTACAFT) 1-23 each eye. ity of 0.25 % Drop 20:36: [place] [address] Medical Branch CYCLOSPORIN Yes Place in U nivers E (RESTASIS 1-23 each eye. ity of OPHTHALMIC) 20:36: [address] Branch ASCORBATE Yes Take by Univ ers CALCIUM 1-23 mouth. ity of (VITAMIN C 20:36: [place] ORAL) Medical Branch DOCOSAHEXAN Yes Take by Un [place] [facility]IC 1-23 mouth. ity of ACID/EPA 20:36: [place] (FISH OIL 33 Medical ORAL) Branch vitamin E Yes 1000U Take 1,000 U nivers 1,000 unit 1-23 Units by ity o f capsule 20:36: mouth [place] 33 daily. Medical Branch Magnesium 2018-0 Yes Take by Univ ers 250 mg Tab - mouth. ity of 20:36: [place] [address] Medical Branch vitamin B-6 Yes 100mg Take 100 U nivers (VITAMIN 1-23 mg by ity of B-6) 100 mg 20:36: mouth [place] tablet 33 daily. Medical Branch CALCIUM Yes Take by Univer s CARBONATE/V 1-23 mouth. ity of ITAMIN D3 20:36: [place] (VITAMIN 33 Medical D-3 ORAL) Branch alcaftadine Yes Place in U nivers (LASTACAFT) 1-23 each eye. ity of 0.25 % Drop 20:36: [place] [address] Medical Branch CYCL[address] Yes Place in U nivers E (RESTASIS - each eye. ity of OPHTHALMIC) 20:36: [place] [address] Medical Branch ASCORBATE Yes Take by Univ ers CALCIUM - mouth. ity of (VITAMIN C 20:36: [place] ORAL) Medical Branch DOCOSAHEXAN Yes Take by Un [place] OIC 10-09 mouth. ity of ACID/EPA 20:36: [place] (FISH OIL 33 Medical ORAL) Branch vitamin E Yes 1000U Take 1,000 U nivers 1,000 unit -23 Units by ity o f capsule 20:36: mouth [place] 33 daily. Medical Branch Magnesium Yes Take by Univ ers 250 mg Tab - mouth. ity of 20:36: [address] Branch vitamin B-6 Yes 100mg Take 100 U nivers (VITAMIN 1-23 mg by ity of B-6) 100 mg 20:36: mouth [place] tablet 33 daily. Medical Branch CALCIUM Yes Take by Univer s CARBONATE/V - mouth. ity of ITAMIN D3 20:36: [place] (VITAMIN 33 Medical D-3 ORAL) Branch alcaftadine Yes Place in U nivers (LASTACAFT) 1- each eye. ity of 0.25 % Drop 20:36: [place] [address] Medical Branch CYCLOSPORIN Yes Place in U nivers E (RESTASIS 1- each eye. ity of OPHTHALMIC) 20:36: [place] [address] Medical Branch ASCORBATE Yes Take by Univ ers CALCIUM 1- mouth. ity of (VITAMIN C 20:36: [place] ORAL) Medical Branch DOCOSAHEXAN Yes Take by [facility] [place] OIC - mouth. ity of ACID/EPA 20:36: [place] (FISH OIL 33 Medical ORAL) Branch vitamin E Yes 1000U Take 1,000 U nivers 1,000 unit 1-23 Units by ity o f capsule 20:36: mouth [place] 33 daily. Medical Branch Magnesium Yes Take by Univ ers 250 mg Tab 1-23 mouth. ity of 20:36: [place] [address] Medical Branch vitamin B-6 Yes 100mg Take 100 U nivers (VITAMIN 1-23 mg by ity of B-6) 100 mg 20:36: mouth [place] tablet 33 daily. Medical Branch CALCIUM Yes Take by Univer s CARBONATE/V 1-23 mouth. ity of ITAMIN D3 20:36: [place] (VITAMIN 33 Medical D-3 ORAL) Branch alcaftadine Yes Place in U nivers (LASTACAFT) 1-23 each eye. ity of 0.25 % Drop 20:36: [address] Branch CYCLOSPORIN Yes Place in U nivers E (RESTASIS 1-23 each eye. ity of OPHTHALMIC) 20:36: [address] Branch ASCORBATE Yes Take by Univ ers CALCIUM 1-23 mouth. ity of (VITAMIN C 20:36: [place] ORAL) Medical Branch DOCOSAHEXAN Yes Take by [facility] [place] [facility] 1-23 mouth. ity of ACID/EPA 20:36: [place] (FISH OIL Medical ORAL) Branch vitamin E Yes 1000U Take 1,000 U nivers 1,000 unit 1-23 Units by ity o f capsule 20:36: mouth [place] 33 daily. Medical Branch Magnesium Yes Take by Univ ers 250 mg Tab 1-23 mouth. ity of 20:36: [address] Branch vitamin B-6 Yes 100mg Take 100 U nivers (VITAMIN 1-23 mg by ity of B-6) 100 mg 20:36: mouth [place] tablet 33 daily. Medical Branch CALCIUM Yes Take by Univer s CARBONATE/V 1-23 mouth. ity of ITAMIN D3 20:36: [place] (VITAMIN 33 Medical D-3 ORAL) Branch alcaftadine Yes Place in U nivers (LASTACAFT) 1-23 each eye. ity of 0.25 % Drop 20:36: [address] Branch CYCLOSPORIN Yes Place in U nivers E (RESTASIS 1-23 each eye. ity of OPHTHALMIC) 20:36: [place] 33 Medical Branch ASCORBATE Yes Take by Univ ers CALCIUM 1-23 mouth. ity of (VITAMIN C 20:36: [place] ORAL) Medical Branch DOCOSAHEXAN Yes Take by [facility] [place] OIC - mouth. ity of ACID/EPA 20:36: [place] (FISH OIL 33 Medical ORAL) Branch vitamin E Yes 1000U Take 1,000 U nivers 1,000 unit 1-23 Units by ity o f capsule 20:36: mouth [place] 33 daily. Medical Branch Magnesium Yes Take by Univ ers 250 mg Tab - mouth. ity of 20:36: [place] [address] Medical Branch vitamin B-6 Yes 100mg Take 100 U nivers (VITAMIN 1-23 mg by ity of B-6) 100 mg 20:36: mouth [place] tablet 33 daily. Medical Branch CALCIUM Yes Take by Univer s CARBONATE/V - mouth. ity of ITAMIN D3 20:36: [place] ([place] [address] Medical D-3 ORAL) Branch alcaftadine Yes Place in U nivers (LASTACAFT) 1 each eye. ity of 0.25 % Drop 20:36: [place] [address] Medical Branch CYCLOSPORIN Yes Place in U nivers E (RESTASIS 1- each eye. ity of OPHTHALMIC) 20:36: [place] [address] Medical Branch ASCORBATE Yes Take by Univ ers CALCIUM -23 mouth. ity of (VITAMIN C 20:36: [place] ORAL) Medical Branch DOCOSAHEXAN Yes Take by [facility] [place] OIC - mouth. ity of ACID/EPA 20:36: [place] (FISH OIL 33 Medical ORAL) Branch vitamin E Yes 1000U Take 1,000 U nivers 1,000 unit 1-23 Units by ity o f capsule 20:36: mouth [place] 33 daily. Medical Branch Magnesium Yes Take by Univ ers 250 mg Tab - mouth. ity of 20:36: [place] [address] Medical Branch vitamin B-6 Yes 100mg Take 100 U nivers (VITAMIN 1-23 mg by ity of B-6) 100 mg 20:36: mouth [place] tablet 33 daily. Medical Branch CALCIUM Yes Take by Univer s CARBONATE/V -23 mouth. ity of ITAMIN D3 20:36: [place] (VITAMIN 33 Medical D-3 ORAL) Branch alcaftadine Yes Place in U nivers (LASTACAFT) 1-23 each eye. ity of 0.25 % Drop 20:36: [place] [address] Medical Branch CYCLOSPORIN Yes Place in U nivers E (RESTASIS 1-23 each eye. ity of OPHTHALMIC) 20:36: [place] [address] Medical Branch ASCORBATE Yes Take by Univ ers CALCIUM 1-23 mouth. ity of (VITAMIN C 20:36: [place] ORAL) Medical Branch DOCOSAHEXAN Yes Take by Un [place] OIC - mouth. ity of ACID/EPA 20:36: [place] (FISH OIL 33 Medical ORAL) Branch vitamin E Yes 1000U Take 1,000 U nivers 1,000 unit 1-23 Units by ity o f capsule 20:36: mouth [place] 33 daily. Medical Branch Magnesium Yes Take by Univ ers 250 mg Tab 1- mouth. ity of 20:36: [address] Branch vitamin B-6 Yes 100mg Take 100 U nivers (VITAMIN 1-23 mg by ity of B-6) 100 mg 20:36: mouth [place] tablet 33 daily. Medical Branch CALCIUM Yes Take by Univer s CARBONATE/V - mouth. ity of ITAMIN D3 20:36: [place] (VITAMIN 33 Medical D-3 ORAL) Branch alcaftadine Yes Place in U nivers (LASTACAFT) 1-23 each eye. ity of 0.25 % Drop 20:36: [place] [address] Medical Branch CYCLOSPORIN Yes Place in U nivers E (RESTASIS 1-23 each eye. ity of OPHTHALMIC) 20:36: [place] [address] Medical Branch ASCORBATE Yes Take by Univ ers CALCIUM 1-23 mouth. ity of (VITAMIN C 20:36: [place] ORAL) Medical Branch DOCOSAHEXAN Yes Take by Un [place] [facility] 1-23 mouth. ity of ACID/EPA 20:36: [place] (FISH OIL 33 Medical ORAL) Branch vitamin E Yes 1000U Take 1,000 U nivers 1,000 unit 1-23 Units by ity o f capsule 20:36: mouth [place] 33 daily. Medical Branch Magnesium 0 Yes Take by Univ ers 250 mg Tab 1-23 mouth. ity of 20:36: [address] Branch vitamin B-6 Yes 100mg Take 100 U nivers (VITAMIN 1-23 mg by ity of B-6) 100 mg 20:36: mouth [place] tablet 33 daily. Medical Branch CALCIUM Yes Take by Univer s CARBONATE/V 1-23 mouth. ity of ITAMIN D3 20:36: [place] (VITAMIN 33 Medical D-3 ORAL) Branch alcaftadine Yes Place in U nivers (LASTACAFT) 1-23 each eye. ity of 0.25 % Drop 20:36: [place] [address] Medical Branch CYCLOSPORIN Yes Place in U nivers E (RESTASIS 1- each eye. ity of OPHTHALMIC) 20:36: [place] [address] Medical Branch ASCORBATE Yes Take by Univ ers CALCIUM 1-23 mouth. ity of (VITAMIN C 20:36: [place] ORAL) [address] [place] [address] Branch DOCOSAHEXAN Yes Take by Un [place] OIC - mouth. ity of ACID/EPA 20:36: [place] (FISH OIL Medical ORAL) Branch vitamin E Yes 1000U Take 1,000 U nivers 1,000 unit 1-23 Units by ity o f capsule 20:36: mouth [place] 33 daily. Medical Branch Magnesium Yes Take by Univ ers 250 mg Tab 1-23 mouth. ity of 20:36: [address] Branch vitamin B-6 Yes 100mg Take 100 U nivers (VITAMIN 1-23 mg by ity of B-6) 100 mg 20:36: mouth [place] tablet 33 daily. Medical Branch CALCIUM Yes Take by Univer s CARBONATE/V -23 mouth. ity of ITAMIN D3 20:36: [place] (VITAMIN 33 Medical D-3 ORAL) Branch alcaftadine Yes Place in U nivers (LASTACAFT) 1-23 each eye. ity of 0.25 % Drop 20:36: [place] [address] Medical Branch CYCLOSPORIN Yes Place in U nivers E (RESTASIS 1-23 each eye. ity of OPHTHALMIC) 20:36: [place] [address] Medical Branch ASCORBATE Yes Take by Univ ers CALCIUM 1-23 mouth. ity of (VITAMIN C 20:36: [place] ORAL) Medical Branch DOCOSAHEXAN Yes Take by [facility] [place] OIC 1-23 mouth. ity of ACID/EPA 20:36: [place] (FISH OIL 33 Medical ORAL) Branch vitamin E Yes 1000U Take 1,000 U nivers 1,000 unit 1-23 Units by ity o f capsule 20:36: mouth [place] 33 daily. Medical Branch Magnesium Yes Take by Univ ers 250 mg Tab 1- mouth. ity of 20:36: [place] [address] Medical Branch vitamin B-6 Yes 100mg Take 100 U nivers (VITAMIN 1-23 mg by ity of B-6) 100 mg 20:36: mouth [place] tablet 33 daily. Medical Branch CALCIUM Yes Take by Univer s CARBONATE/V - mouth. ity of ITAMIN D3 20:36: [place] (VITAMIN 33 Medical D-3 ORAL) Branch alcaftadine Yes Place in U nivers (LASTACAFT) 1- each eye. ity of 0.25 % Drop 20:36: [place] [address] Medical Branch CYCLOSPORIN Yes Place in U nivers E (RESTASIS - each eye. ity of OPHTHALMIC) 20:36: [place] [address] Medical Branch ASCORBATE Yes Take by Univ ers CALCIUM 1-23 mouth. ity of (VITAMIN C 20:36: [place] ORAL) Medical Branch DOCOSAHEXAN Yes Take by Un [place] OIC 1- mouth. ity of ACID/EPA 20:36: [place] (FISH OIL 33 Medical ORAL) Branch vitamin E Yes 1000U Take 1,000 U nivers 1,000 unit 1-23 Units by ity o f capsule 20:36: mouth [place] 33 daily. Medical Branch Magnesium Yes Take by Univ ers 250 mg Tab 1-23 mouth. ity of 20:36: [place] [address] Medical Branch vitamin B-6 Yes 100mg Take 100 U nivers (VITAMIN 1-23 mg by ity of B-6) 100 mg 20:36: mouth [place] tablet 33 daily. Medical Branch CALCIUM 0 Yes Take by Univer s CARBONATE/V 1-23 mouth. ity of ITAMIN D3 20:36: [place] (VITAMIN 33 Medical D-3 ORAL) Branch alcaftadine Yes Place in U nivers (LASTACAFT) 1-23 each eye. ity of 0.25 % Drop 20:36: [place] [address] Medical Branch CYCLOSPORIN Yes Place in U nivers E (RESTASIS 10-09 each eye. ity of OPHTHALMIC) 20:36: [place] [address] Medical Branch ASCORBATE Yes Take by [facility] ers CALCIUM - mouth. ity of (VITAMIN C 20:36: [place] ORAL) Medical Branch DOCOSAHEXAN Yes Take by Un [place] OIC 10-09 mouth. ity of ACID/EPA 20:36: [place] (FISH OIL Medical ORAL) [facility] vitamin E Yes 1000U Take 1,000 U nivers 1,000 unit 10-09 Units by ity o f capsule 20:36: mouth [place] 33 daily. Medical Branch Magnesium Yes Take by [facility] ers 250 mg Tab 10-09 mouth. ity of 20:36: [address] Branch vitamin B-6 Yes 100mg Take 100 U nivers (VITAMIN 1-23 mg by ity of B-6) 100 mg 20:36: mouth [place] tablet 33 daily. Medical Branch CALCIUM Yes Take by [facility] s CARBONATE/V 10-09 mouth. ity of ITAMIN D3 20:36: [place] (VITAMIN Medical D-3 ORAL) [facility] Immunizations Ordered Filled Immunization Date Status Comments [facility] e Immunization Name Name Pneumococcal 2019-04-25 Completed University o f Polysaccharide, 00:00:00 [place] Med ical PPSV23 (PNEUMOVAX) Branch Pneumococcal 2019-04-25 Completed [place] o f Polysaccharide, 00:00:00 [place] Med ical PPSV23 (PNEUMOVAX) Branch Pneumococcal 2019-04-25 Completed University o f Polysaccharide, 00:00:00 [place] Med ical PPSV23 (PNEUMOVAX) Branch Pneumococcal 2019-04-25 Completed University o f Polysaccharide, 00:00:00 [place] Med ical PPSV23 (PNEUMOVAX) Branch Pneumococcal 2019-04-25 Completed University o f Polysaccharide, 00:00:00 [place] Med ical PPSV23 (PNEUMOVAX) Branch Pneumococcal 2019-04-25 Completed [place] o f Polysaccharide, 00:00:00 [place] Med ical PPSV23 (PNEUMOVAX) Branch Pneumococcal 2019-04-25 Completed [place] o f Polysaccharide, 00:00:00 [place] Med ical [...] 2019-04-25 Completed University o f Polysaccharide, 00:00:00 [facility] ical PPSV23 (PNEUMOVAX) Branch Pneumococcal 13 2017-08-27 [...] 00:00:00 [place] Me dical (Prevnar 13) Branch Vital Signs Vital Name Observation Time Observation Value Comments Source Systolic blood 2021-03-08 145 mm[Hg] University of pressure 20:03:00 [facility] Diastolic blood 2021-03-08 82 mm[Hg] University o f pressure 20:03:00 [facility] Heart rate 2021-03-08 83 /min University of 20:03:00 [facility] Body temperature 2021-03-08 36.06 [place] [facility] of 20:03:00 [facility] Body height 2021-03-08 149.9 cm University of 20:03:00 [facility] Body weight 2021-03-08 73.301 kg University of 20:03:00 [facility] BMI 2021-03-08 32.64 kg/m2 University of 20:03:00 [facility] Oxygen saturation 2021-03-08 96 /min [facility] in Arterial blood 20:03:00 [facility] by Pulse oximetry Branch Systolic blood 2021-02-07 131 mm[Hg] University of pressure 20:47:00 [facility] Diastolic blood 2021-02-07 61 mm[Hg] University o f pressure 20:47:00 [facility] Heart rate 2021-02-07 86 /min University of 20:47:00 [facility] Body temperature 2021-02-07 36.61 [place] [facility] of 20:47:00 [facility] Body height 2021-02-07 149.9 cm University of 20:47:00 [facility] Body weight 2021-02-07 77.111 kg University of 20:47:00 [facility] BMI 2021-02-07 34.34 kg/m2 University of 20:47:00 [facility] Systolic blood 2021-02-04 157 mm[Hg] University of pressure 22:01:00 [facility] Diastolic blood 2021-02-04 78 mm[Hg] University o f pressure 22:01:00 [facility] Heart rate 2021-02-04 66 /min University of 21:58:00 [facility] Body temperature 2021-02-04 35.67 [place] [facility] of 21:58:00 [facility] Respiratory rate 2021-02-04 17 /min University of 21:58:00 [facility] Body height 2021-02-04 149.9 cm University of 21:58:00 [facility] Body weight 2021-02-04 75.751 kg University of 21:58:00 [facility] BMI 2021-02-04 33.73 kg/m2 University of 21:58:00 [facility] Oxygen saturation 2021-02-04 98 /min University of in Arterial blood 21:58:00 [facility] by Pulse oximetry Branch Systolic blood 2021-01-25 162 mm[Hg] University of pressure 20:01:00 [facility] Branch Diastolic blood 2021-01-25 54 mm[Hg] University o f pressure 20:01:00 [facility] Branch Heart rate 2021-01-25 60 /min University of 19:53:00 [facility] Respiratory rate 2021-01-25 16 /min University of 19:53:00 [facility] Body weight 2021-01-25 76.658 kg University of 19:53:00 [facility] BMI 2021-01-25 34.13 kg/m2 University of 19:53:00 [facility] Oxygen saturation 2021-01-25 96 /min University of in Arterial blood 19:53:00 [facility] by Pulse oximetry Branch Systolic blood 2020-11-14 139 mm[Hg] University of pressure 21:00:00 [facility] Branch Diastolic blood 2020-11-14 55 mm[Hg] University o f pressure 21:00:00 [facility] Heart rate 2020-11-14 61 /min University of 21:00:00 [facility] Respiratory rate 2020-11-14 16 /min University of 21:00:00 [facility] Oxygen saturation 2020-11-14 95 /min University of in Arterial blood 21:00:00 [facility] [place] by Pulse oximetry Branch Body temperature 2020-11-14 36.72 [place] University of 18:42:00 [facility] Body weight 2020-11-14 75.751 kg University of 18:42:00 [facility] BMI 2020-11-14 33.73 kg/m2 University of 18:42:00 [facility] Systolic blood 2020-11-09 152 mm[Hg] University of pressure 16:31:00 [facility] Branch Diastolic blood 2020-11-09 79 mm[Hg] University o f pressure 16:31:00 [facility] Heart rate 2020-11-09 65 /min University of 16:31:00 [facility] Body temperature 2020-11-09 36.06 [place] University of 16:31:00 [facility] Respiratory rate 2020-11-09 18 /min University of 16:31:00 [facility] Body height 2020-11-09 149.9 cm University of 16:31:00 [facility] Body weight 2020-11-09 76.204 kg University of 16:31:00 [facility] BMI 2020-11-09 33.93 kg/m2 University of 16:31:00 [facility] Oxygen saturation 2020-11-09 99 /min University of in Arterial blood 16:31:00 [place] [facility] by Pulse oximetry Branch Systolic blood 2020-09-28 131 mm[Hg] University of pressure 15:39:00 [facility] Diastolic blood 2020-09-28 67 mm[Hg] University o f pressure 15:39:00 [facility] Heart rate 2020-09-28 62 /min University of 15:39:00 [facility] Body temperature 2020-09-28 36.22 [place] University of 15:39:00 [facility] Respiratory rate 2020-09-28 18 /min University of 15:39:00 [facility] Body height 2020-09-28 149.9 cm University of 15:39:00 [facility] Body weight 2020-09-28 74.254 kg University of 15:39:00 [facility] BMI 2020-09-28 33.06 kg/m2 University of 15:39:00 [facility] Oxygen saturation 2020-09-28 99 /min University of in Arterial blood 15:39:00 [facility] kacey by Pulse oximetry Branch Systolic blood 2020-09-21 136 mm[Hg] University of pressure 19:16:00 [facility] Diastolic blood 2020-09-21 63 mm[Hg] University o f pressure 19:16:00 [facility] Heart rate 2020-09-21 62 /min University of 19:16:00 [facility] Body temperature 2020-09-21 36.67 [place] University of 19:11:00 [facility] Body height 2020-09-21 149.9 cm University of 19:11:00 [facility] Body weight 2020-09-21 74.844 kg University of 19:11:00 [facility] BMI 2020-09-21 33.33 kg/m2 University of 19:11:00 [facility] Systolic blood 2020-08-31 142 mm[Hg] University of pressure 04:35:10 [facility] Diastolic blood 2020-08-31 55 mm[Hg] University o f pressure 04:35:10 [facility] Heart rate 2020-08-31 67 /min University of 04:35:10 [facility] Body temperature 2020-08-31 37.11 [place] University of 04:35:10 [facility] Respiratory rate 2020-08-31 16 /min University of 04:35:10 [facility] Oxygen saturation 2020-08-31 96 /min University in Arterial blood 04:35:10 [facility] by Pulse oximetry Branch Body height 2020-08-31 149.9 cm University of 00:44:00 [facility] Body weight 2020-08-31 76.658 kg University of 00:44:00 [facility] BMI 2020-08-31 34.13 kg/m2 University of 00:44:00 [facility] Systolic blood 2020-08-23 120 mm[Hg] University of pressure 22:47:00 [facility] Diastolic blood 2020-08-23 63 mm[Hg] University o f pressure 22:47:00 [facility] Heart rate 2020-08-23 62 /min University of 22:47:00 [facility] Body temperature 2020-08-23 36.72 [place] University of 22:47:00 [facility] Body height 2020-08-23 149.9 cm University of 22:47:00 [facility] Body weight 2020-08-23 76.658 kg University of 22:47:00 [facility] BMI 2020-08-23 34.13 kg/m2 University of 22:47:00 [facility] Systolic blood 2020-08-11 114 mm[Hg] University of pressure 21:20:00 [facility] Diastolic blood 2020-08-11 58 mm[Hg] University o f pressure 21:20:00 [facility] Heart rate 2020-08-11 64 /min University of 21:20:00 [facility] Respiratory rate 2020-08-11 19 /min University of 21:20:00 [facility] Body height 2020-08-11 149.9 cm University of 21:20:00 [facility] Body weight 2020-08-11 76.204 kg University of 21:20:00 [facility] BMI 2020-08-11 33.93 kg/m2 University of 21:20:00 [facility] Oxygen saturation 2020-08-11 95 /min [facility] in Arterial blood 21:20:00 [place] [facility] Pulse oxim[facility] Systolic blood 2020-08-09 124 mm[Hg] [facility] pressure 20:49:00 [facility] Diastolic blood 2020-08-09 60 mm[Hg] University o f pressure 20:49:00 [facility] Heart rate 2020-08-09 64 /min University of 20:49:00 [facility] Respiratory rate 2020-08-09 19 /min University of 20:49:00 [facility] Body height 2020-08-09 149.9 cm University of 20:49:00 [facility] Body weight 2020-08-09 76.204 kg University of 20:49:00 [facility] BMI 2020-08-09 33.93 kg/m2 University of 20:49:00 [facility] Oxygen saturation 2020-08-09 96 /min University of in Arterial blood 20:49:00 [place] [facility] Pulse oximetry [facility] Systolic blood 2020-07-09 129 mm[Hg] University of pressure 17:01:00 [facility] Diastolic blood 2020-07-09 66 mm[Hg] University o f pressure 17:01:00 [facility] Heart rate 2020-07-09 61 /min University of 17:01:00 [facility] Respiratory rate 2020-07-09 18 /min University of 17:01:00 [facility] Body height 2020-07-09 149.9 cm University of 17:01:00 [facility] Body weight 2020-07-09 76.204 kg University of 17:01:00 [facility] BMI 2020-07-09 33.93 kg/m2 University of 17:01:00 [facility] Systolic blood 2020-07-07 132 mm[Hg] University of pressure 19:25:00 [facility] Diastolic blood 2020-07-07 73 mm[Hg] University o f pressure 19:25:00 [facility] Heart rate 2020-07-07 68 /min University of 19:25:00 [facility] Respiratory rate 2020-07-07 19 /min University of 19:25:00 [facility] Body height 2020-07-07 149.9 cm University of 19:25:00 [facility] Body weight 2020-07-07 74.844 kg University of 19:25:00 [facility] BMI 2020-07-07 33.33 kg/m2 University of 19:25:00 [facility] Oxygen saturation 2020-07-07 97 /min University of in Arterial blood 19:25:00 [facility] by Pulse oximetry Branch Body height 2020-06-21 149.9 cm University of 20:25:00 [facility] Body weight 2020-06-21 77.111 kg University of 20:25:00 [facility] BMI 2020-06-21 34.34 kg/m2 University of 20:25:00 [facility] Systolic blood 2020-06-09 115 mm[Hg] University of pressure 19:34:00 [facility] Diastolic blood 2020-06-09 60 mm[Hg] University o f pressure 19:34:00 [facility] Heart rate 2020-06-09 76 /min University of 19:34:00 [facility] Respiratory rate 2020-06-09 19 /min University of 19:34:00 [facility] Body height 2020-06-09 149.9 cm University of 19:34:00 [facility] Body weight 2020-06-09 75.978 kg University of 19:34:00 [facility] BMI 2020-06-09 33.83 kg/m2 University of 19:34:00 [facility] Oxygen saturation 2020-06-09 95 /min [place] in Arterial blood 19:34:00 [facility] by Pulse oximetry Branch Systolic blood 2020-06-07 144 mm[Hg] patient has not University of pressure 15:24:00 taken bp [place] [facility] Diastolic blood 2020-06-07 79 mm[Hg] patient has not Universit y of pressure 15:24:00 taken bp [place] [facility] Heart rate 2020-06-07 93 /min University of 15:24:00 [facility] Body temperature 2020-06-07 36.67 [place] University of 15:24:00 [facility] Body height 2020-06-07 149.9 cm University of 15:24:00 [facility] Body weight 2020-06-07 76.114 kg University of 15:24:00 [facility] BMI 2020-06-07 33.89 kg/m2 University of 15:24:00 [facility] Systolic blood 2020-06-03 142 mm[Hg] University of pressure 22:00:00 [facility] Diastolic blood 2020-06-03 64 mm[Hg] University o f pressure 22:00:00 [facility] Heart rate 2020-06-03 80 /min University of 22:00:00 [facility] Body temperature 2020-06-03 37.22 [place] University of 22:00:00 [facility] Respiratory rate 2020-06-03 15 /min [facility] of 22:00:00 [facility] Oxygen saturation 2020-06-03 98 /min [facility] of in Arterial blood 22:00:00 [place] [facility] Pulse oxim[facility] Body weight 2020-06-03 68.04 kg University of 20:19:00 [facility] BMI 2020-06-03 30.30 kg/m2 University of 20:19:00 [facility] Systolic blood 2020-05-10 129 mm[Hg] University of pressure 19:25:00 [facility] Diastolic blood 2020-05-10 79 mm[Hg] University o f pressure 19:25:00 [facility] Heart rate 2020-05-10 85 /min University of :25:00 [facility] Body temperature 2020-05-10 36.33 [place] University of :25:00 [facility] Body height 2020-05-10 149.9 cm University of 19:25:00 [facility] Body weight 2020-05-10 75.116 kg University of 19:25:00 [facility] BMI 2020-05-10 33.45 kg/m2 University of 19:25:00 [facility] Oxygen saturation 2020-05-10 97 /min University of in Arterial blood 19:25:00 [place] [facility] Pulse oximetry [facility] Systolic blood 2020-02-26 134 mm[Hg] University of pressure 19:37:00 [facility] Diastolic blood 2020-02-26 72 mm[Hg] University o f pressure 19:37:00 [facility] Heart rate 2020-02-26 71 /min University of 19:37:00 [facility] Respiratory rate 2020-02-26 19 /min [facility] of 19:37:00 [facility] Body height 2020-02-26 149.9 cm University of 19:37:00 [facility] Body weight 2020-02-26 75.751 kg University of 19:37:00 [facility] BMI 2020-02-26 33.73 kg/m2 University of 19:37:00 [facility] Oxygen saturation 2020-02-26 99 /min [facility] in Arterial blood 19:37:00 [place] [facility] Pulse oxim[facility] Heart rate 2019-12-09 90 /min University of 21:40:00 [facility] Body temperature 2019-12-09 36.56 [place] University of :40:00 [facility] Respiratory rate 2019-12-09 18 /min University of :40:00 [facility] Oxygen saturation 2019-12-09 95 /min [facility] of in Arterial blood 21:40:00 [facility] by Pulse oximetry Branch Systolic blood 2019-12-09 122 mm[Hg] University of pressure 17:00:00 [facility] Diastolic blood 2019-12-09 65 mm[Hg] University o f pressure 17:00:00 [facility] Body weight 2019-12-09 74.707 kg University of 05:30:00 [facility] BMI 2019-12-09 33.27 kg/m2 University of 05:30:00 [facility] Body height 2019-12-07 149.9 cm University of 05:30:00 [facility] Respiratory rate 2019-11-15 16 /min University of :46:00 [facility] Oxygen saturation 2019-11-15 97 /min [facility] of in Arterial blood 02:46:00 [facility] by Pulse oximetry Branch Systolic blood 2019-11-15 159 mm[Hg] University of pressure 02:24:00 [facility] Diastolic blood 2019-11-15 72 mm[Hg] University o f pressure 02:24:00 [facility] Heart rate 2019-11-15 75 /min University of 02:24:00 [facility] Body temperature 2019-11-14 37 [place] University of :50:00 [facility] Body height 2019-11-14 149.9 cm University of :50:00 [facility] Body weight 2019-11-14 74.844 kg University of :50:00 [facility] BMI 2019-11-14 33.33 kg/m2 University of 23:50:00 [facility] Systolic blood 2019-11-09 136 mm[Hg] [facility] pressure 01:04:00 [place] [facility] Diastolic blood 2019-11-09 61 mm[Hg] University o f pressure 01:04:00 [facility] Heart rate 2019-11-09 80 /min University of 01:03:00 [facility] Body temperature 2019-11-09 36.67 [place] University [facility] 01:03:00 [facility] Respiratory rate 2019-11-09 20 /min University of 01:03:00 [facility] Body height 2019-11-09 149.9 cm University of 01:03:00 [facility] Body weight 2019-11-09 76.658 kg University of 01:03:00 [facility] BMI 2019-11-09 34.13 kg/m2 University of 01:03:00 [facility] Oxygen saturation 2019-11-09 95 /min [facility] in Arterial blood 01:03:00 [facility] Pulse oximetry Branch Systolic blood 2019-10-30 156 mm[Hg] University of pressure 16:21:00 [facility] Diastolic blood 2019-10-30 80 mm[Hg] University o f pressure 16:21:00 [facility] Heart rate 2019-10-30 77 /min [place] of 15:40:00 [facility] Body temperature 2019-10-30 36.61 [place] University of 15:40:00 [facility] Body height 2019-10-30 149.9 cm University of 15:40:00 [facility] Body weight 2019-10-30 76.204 kg University of 15:40:00 [facility] BMI 2019-10-30 33.93 kg/m2 University of 15:40:00 [facility] Systolic blood 2019-06-05 125 mm[Hg] University of pressure 18:17:00 [facility] Diastolic blood 2019-06-05 75 mm[Hg] University o f pressure 18:17:00 [facility] Heart rate 2019-06-05 80 /min University of 18:17:00 [facility] Body temperature 2019-06-05 36.67 [place] University of 18:17:00 [facility] Respiratory rate 2019-06-05 18 /min University of 18:17:00 [facility] Body height 2019-06-05 149.9 cm University of 18:17:00 [facility] Body weight 2019-06-05 74.844 kg University of 18:17:00 [facility] BMI 2019-06-05 33.33 kg/m2 University of 18:17:00 [facility] Systolic blood 2019-06-02 117 mm[Hg] University of pressure 23:21:00 [facility] Diastolic blood 2019-06-02 68 mm[Hg] University o f pressure 23:21:00 [facility] Heart rate 2019-06-02 64 /min [facility] 23:21:00 [facility] Body temperature 2019-06-02 36.61 [place] University 23:21:00 [facility] Respiratory rate 2019-06-02 18 /min University 23:21:00 [facility] Body height 2019-06-02 149.9 cm University 23:21:00 [facility] Body weight 2019-06-02 74.571 kg University 23:21:00 [facility] BMI 2019-06-02 33.20 kg/m2 University 23:21:00 [facility] Oxygen saturation 2019-06-02 98 /min [facility] in Arterial blood 23:21:00 [facility] by Pulse oximetry Branch Systolic blood 2019-04-25 125 mm[Hg] University of pressure 18:26:00 [facility] Diastolic blood 2019-04-25 68 mm[Hg] [place] o f pressure 18:26:00 [facility] Heart rate 2019-04-25 71 /min [facility] 18:26:00 [facility] Body temperature 2019-04-25 36.94 [place] [facility] 18:26:00 [facility] Body height 2019-04-25 149.9 cm University 18:26:00 [facility] Body weight 2019-04-25 75.297 kg University 18:26:00 [facility] BMI 2019-04-25 33.53 kg/m2 [facility] 18:26:00 [facility] Procedures Procedure Date / Time Performing Clinician Source Performed MEDICATION CORRESPONDENCE 2021-04-27 05:01:00 Doctor Unassigned, [facility] Name [facility] REFERRAL- REQUEST/RESPONSE 2021-03-07 05:01:00 Doctor Unassigned , [facility] MEDICATION CORRESPONDENCE 2021-02-09 05:01:00 Doctor Unassigned, [facility] FERRITIN SERUM 2021-01-26 14:05:00 Jose Fraser [facility] THYROID STIMULATING 2021-01-26 14:05:00 Jose Fraser [facility] HORMONE Medical Branch COMP. METABOLIC PANEL 2021-01-26 14:05:00 Jose Fraser [facility] ([id number]) Medical Branch LIPID PANEL ([id number])(TOTAL 2021-01-26 14:05:00 Jose Fraser [facility] CHOLESTEROL, [facility] TRIGLYCERIDES, HDL) IRON PANEL 2021-01-26 14:05:00 Jose Fraser [facility] CBC WITHOUT DIFF 2021-01-26 14:05:00 Jose Fraser [facility] GLYCOSYLATED HEMOGLOBIN 2021-01-26 14:05:00 Jose Fraser [facility] (A1C) [facility] CT ABDOMEN PELVIS W 2020-11-14 19:55:51 Patricia Shi [facility] CONTRAST [facility] URINALYSIS 2020-11-14 19:30:00 Patricia Shi [facility] COVID-19 (ID NOW RAPID 2020-11-14 19:06:00 Patricia Shi [facility] TESTING) Medical Branch LIPASE 2020-11-14 19:05:00 Patricia Shi [facility] TROPONIN I 2020-11-14 19:05:00 Patricia Shi [facility] HEPATIC FUNCTION PANEL 2020-11-14 19:05:00 Patricia Shi [facility] ([id number]) (ALB,T.PRO,BILI Medical Branch T,BU/BC,ALT,AST,ALK PHOS) BASIC METABOLIC PANEL (NA, 2020-11-14 19:05:00 Patricia Shi [facility] K, CL, CO2, GLUCOSE, BUN, Medica l Branch CREATININE, [place]) CBC WITH DIFF 2020-11-14 19:05:00 Patricia Shi [facility] PROTHROMBIN TIME / INR 2020-11-14 19:05:00 Patricia Shi [facility] ACTIVATED PARTIAL THRMPLAS 2020-11-14 19:05:00 Patricia Shi [facility] NOTICE OF PRIVACY 2020-11-14 18:26:59 Doctor Ger, [facility] PRACTICES [facility] CONSENT/REFUSAL FOR 2020-11-14 18:26:36 Doctor Ger [facility] DIAGNOSIS AND TREATMENT [facility] EXTERNAL PROVIDER RECORDS 2020-10-08 06:01:00 Doctor Ger, [facility] HOME HEALTH - OTHER 2020-10-06 06:01:00 Doctor Ger [facility] ASSIGNMENT OF BENEFITS 2020-10-05 19:31:32 [facility] CONSENT/REFUSAL FOR 2020-08-31 00:30:55 Doctor Ger [facility] DI[facility]NOSIS [facility] (HIP AND SPINE) 2020-08-25 20:11:01 Jose Fraser [facility] XR HIPS 2 VW BILATERAL 2020-08-25 19:16:37 Jose Fraser [facility] DME/SUPPLY JUSTIFICATION 2020-08-11 06:01:00 Doctor Ger [facility] Name [facility] SLEEP STUDY DATA REPORT 2020-07-17 05:01:00 Doctor Ger, [facility] COVID-19 (ID NOW RAPID 2020-06-11 19:31:00 Jose Fraser [facility] TESTING) Medical Branch ASSIGNMENT OF BENEFITS 2020-06-11 19:08:54 Doctor Ger, Un [facility] XR CHEST 1 VW COVID 2020-06-03 21:07:32 Ko Breen [facility] COVID-19 (ID NOW RAPID 2020-06-03 20:56:00 Ko Breen [facility] TESTING) Medical Branch TROPONIN I 2020-06-03 20:47:00 Ko Breen [facility] COMP. METABOLIC PANEL 2020-06-03 20:47:00 Ko Breen [facility] ([id number]) Medical Branch CBC WITH DIFF 2020-06-03 20:47:00 Ko Breen [facility] PROTHROMBIN TIME / INR 2020-06-03 20:47:00 Ko Breen [facility] N-TERMINAL PRO-BNP 2020-06-03 20:47:00 Ko Breen [facility] EKG-12 LEAD 2020-06-03 20:26:00 Avani Anderson [facility] CONSENT/REFUSAL FOR 2020-06-03 20:08:11 Doctor Ger [facility] DIAGNOSIS AND TREATMENT [facility] INSURANCE CORRESPONDENCE 2020-04-12 05:01:00 Doctor Unassigned, [facility] Name [facility] REFERRAL- REQUEST/RESPONSE 2020-02-16 05:01:00 Doctor Unassigned , [facility] REFERRAL- REQUEST/RESPONSE 2020-01-12 05:01:00 Doctor Unassigned , [facility] [place], operated by [facility] POCT GLUCOSE (AUTOMATED) 2019-12-09 21:00:00 Kelly Mittal [employer] [facility] POCT GLUCOSE (AUTOMATED) 2019-12-09 16:34:00 Kelly Mittal [employer] [facility] POCT GLUCOSE (AUTOMATED) 2019-12-09 12:27:00 Kelly Mittal [employer] [facility] THYROID STIMULATING 2019-12-09 10:55:00 Kelly Mittal [facility] HORMONE [facility] BASIC METABOLIC PANEL (NA, 2019-12-09 10:55:00 Kelly Mittal [facility] K, CL, CO2, GLUCOSE, BUN, Medica l Branch CREATININE, [place]) CBC WITH DIFFERENTIAL 2019-12-09 10:55:00 Kelly Mittal [facility] ACTIVATED PARTIAL THRMPLAS 2019-12-09 10:55:00 Kelly [facility] POCT GLUCOSE (AUTOMATED) 2019-12-09 00:20:00 Kelly Mittal [employer] [facility] POCT GLUCOSE (AUTOMATED) 2019-12-08 20:54:00 Kelly Mittal [employer] [facility] ACTIVATED PARTIAL THRMPLAS 2019-12-08 18:56:00 Migel Vick [facility] POCT GLUCOSE (AUTOMATED) 2019-12-08 16:42:00 Kelly Mittal [employer] [facility] POCT GLUCOSE (AUTOMATED) 2019-12-08 12:16:00 Kelly Mittal [employer] [facility] CBC WITH DIFFERENTIAL 2019-12-08 06:36:00 Kelly Mittal [facility] ACTIVATED PARTIAL THRMPLAS 2019-12-08 06:36:00 Kelly [facility] POCT GLUCOSE (AUTOMATED) 2019-12-08 00:53:00 KyrieKelly [employer] [facility] ACTIVATED PARTIAL THRMPLAS 2019-12-07 21:53:00 [facility] (AUTOMATED) 2019-12-07 21:43:00 Kyrie Kelly [employer] [facility] URINE CULTURE 2019-12-07 18:37:00 Migel Vick [facility] POCT GLUCOSE (AUTOMATED) 2019-12-07 16:46:00 Kyrie Kelly [employer] [facility] POCT GLUCOSE (AUTOMATED) 2019-12-07 13:15:00 [facility] [employer] GLYCOSYLATED HEMOGLOBIN 2019-12-07 10:56:00 Kyrie [facility] (A1C) [facility] ACTIVATED PARTIAL THRMPLAS 2019-12-07 10:56:00 Kelly Mittal [facility] PROTHROMBIN TIME / INR 2019-12-07 03:44:00 Jesse Gee [facility] ACTIVATED PARTIAL THRMPLAS 2019-12-07 03:44:00 Jesse Gee [facility] LAB ONLY CORONAVIRUS 2019-12-07 03:08:00 Everton Scott [facility] COVID-19 PCR [facility] Branch CT CHEST PULMONARY 2019-12-07 03:03:[address] [facility] ANGIOGRAM Medical Branch URINALYSIS 2019-12-07 02:34:00 Everton Scott [facility] XR CHEST 2 VW 2019-12-07 02:05:16 Everton Scott [facility] EKG-12 LEAD 2019-12-07 01:50:52 Jesse Gee [facility] LIPASE 2019-12-07 01:49:00 Everton Scott [facility] TROPONIN I 2019-12-07 01:49:00 Everton Scott [facility] HEPATIC FUNCTION PANEL 2019-12-07 01:49:00 Everton Scott [facility] ([id number]) (ALB,T.PRO,BILI Medical Branch T,BU/BC,ALT,AST,ALK PHOS) BASIC METABOLIC PANEL (NA, 2019-12-07 01:49:00 Everton Scott [facility] K, CL, CO2, GLUCOSE, BUN, Medica l Branch CREATININE, [place]) CBC WITH DIFFERENTIAL 2019-12-07 01:49:00 Everton Scott [facility] ADC,CLC OR [facility] ONLY - 2019-12-07 01:49:00 Everton Scott [facility] INFLUENZA A & B DIRECT [facility] ANTIGEN EKG-12 LEAD 2019-12-07 01:43:35 Everton Scott [facility] HOSPITAL ADMISSION MISC - 2019-12-06 05:01:00 Doctor Unassigned, [facility] MEDICARE PATIENTS RIGHTS [facility] IMPORTANT MESSAGE XR CHEST 2 VW 2019-11-15 00:28:12 Enrique Story [facility] ADC,CLC OR LCC ONLY - 2019-11-14 23:56:00 Enrique Story [facility] INFLUENZA A & B DIRECT [facility] ANTIGEN NOTICE OF PRIVACY 2019-11-14 23:36:55 Doctor Unassigned, [facility] PRACTICES [facility] CONSENT/REFUSAL FOR 2019-11-14 23:30:43 Doctor Ger, [facility] DIAGNOSIS AND TREATMENT [facility] AUTHORIZATION FOR RELEASE 2019-11-12 06:01:00 Doctor Unaericigned, [facility] OF [facility] POCT FLU A AND B 2019-11-09 01:11:00 Jeffrey Ko [facility] (MOLECULAR) [facility] THYROID STIMULATING 2019-10-30 16:31:00 Jose Fraser [facility] HORMONE Medical Branch MICROALBUMIN URINE 2019-10-30 16:31:00 Jose Fraser [facility] COMP. METABOLIC PANEL 2019-10-30 16:31:00 Jose Fraser [facility] ([id number]) Medical Branch LIPID PANEL ([id number])(TOTAL 2019-10-30 16:31:00 Jose Fraser [facility] CHOLESTEROL, [facility] TRIGLYCERIDES, HDL) CBC WITH DIFFERENTIAL 2019-10-30 16:31:00 [facility] GLYCOSYL[facility]EMOGLOBIN 2019-10-30 16:31:00 Jose Fraser [facility] (A1C) [facility] DISCLOSURE AND CONSENT, 2019-06-05 05:01:00 Doctor Unassstacy, Anastasia [facility] MEDICAL AND SURGICAL [facility] PROCEDURES XR SPINE THORACIC 3 VW 2019-06-03 00:45:31 Selma Staley [facility] XR LUMBAR SPINE 3 VW 2019-06-03 00:45:22 Selma Staley [facility] EXTERNAL PROVIDER RECORDS 2019-05-25 05:01:00 Doctor Unajonatan, [facility] PNEUMOCOCCAL VACCINE, 2019-04-25 19:00:39 Jose Fraser [facility] 23-VALENT (PNEUMOVAX) Medical Br anch NO SHOW OR MISSED 2019-04-25 18:05:48 Doctor Ger, [facility] APPOINTMENT POLICY [facility] ACKNOWLEDGEMENT INSURANCE CORRESPONDENCE 2019-04-16 05:01:00 Doctor Ger, [facility] Encounters Start End Encounter Admission Attending Care Care Encounter Source Date/Time Date/Time Type Type Clinicians Facility Department ID 2021-11-29 Outpatient Gomez, [facility] [id number] 10:03:01 Alber [id number] 2021-10-25 Outpatient Gomez, [facility] [id number] 13:49:01 Alber [facility] 2021-10-12 Outpatient Gomez, [facility] [id number] 14:23:26 Alber [facility] 2021-10-12 Outpatient Gomez, [facility] [id number] 14:17:00 Alber [id number] [facility] 2021-07-17 Emergency [facility] [id number] Univers 01:55:47 ity of [place] [facility] 2021-07-16 Emergency [facility] [id number] Univers 11:14:41 ity [facility] 2021-07-15 Emergency [facility] [id number] Univers 18:08:36 [facility] 2021-07-14 Outpatient R MAURER, [facility] BLADE [id number] Univers 17:19:04 [facility] 2021-12-06 2021-12-06 [facility] 1.2.840.114 [id number] Univers 00:00:00 00:00:00 [facility] [id number] ity [facility] [place].2.[place].2.[place] [phone] [address] 2021-11-29 2021-11-29 ambulatory STLMLC [facility] [id number] [facility] 2021-11-18 2021-11-18 ambulatory STLMLC STLMLC [id number] [facility] 2021-11-11 2021-11-11 [facility] 1.2.840.114 [id number] Univers 00:00:00 00:00:00 Wondiful A [facility].1.13.10 [facility] 4.2.7.2.686 Edward as PROFESSIO [phone] [address] BUILDING ONE 2021-11-02 2021-11-02 Outpatient JULIANNE, [facility] [facility] 12:41:00 23:59:00 ROBERTO 2021-10-26 2021-10-26 ambulatory STLMLC STLMLC [id number] [facility] 2021-09-28 2021-09-28 ambulatory STLMLC STLMLC [id number] [facility] 2021-09-02 2021-09-02 ambulatory STLMLC STLMLC [id number] [facility] 2021-08-29 2021-08-29 [facility] [id number] [facility] 2021-08-25 2021-08-25 [facility] [id number] [facility] 2021-05-04 2021-05-04 Refill Evelio [facility] 1.2.840.114 [id number] Univers 00:00:00 00:00:00 Wondiful A [place] 350.1.13.10 [place].2.[place] [phone] [address] Building 2021-04-27 2021-04-27 Orders Doctor MARTHA 1.2.840.114 [id number] Univers 00:00:00 00:00:00 Only Unassigned, MELIZA 350.1.13.10 [facility] 4.2.7.2.686 Edward as [phone] [address] 2021-04-20 2021-04-20 ambulatory [facility] [id number] [facility] 2021-03-14 2021-03-14 Outpatient R VIDAL [facility] [id number] Univers 14:40:00 14:40:00 LUIS [id number] andrewy o f [facility] 2021-03-14 2021-03-14 Outpatient Dulce JOHNSON [facility] [id number] Univers 14:40:00 14:40:00 LUIS moralesy o f [facility] 2021-03-08 2021-03-08 Android Programmer Lab, Adc El Fong I [facility] 1.2. 840.114 [id number] Univers 15:45:57 16:05:57 Visit Jose Fraser [facility] 350.1.13.1 0 ity of [place] 4.2.7.2.686 Edward as Professio [phone] Me dical nal 0[address] [facility] 2021-03-08 2021-03-08 Office [facility] 1.2.840.114 [id number] Univers 14:56:34 15:26:34 Visit [facility] 350.1.13.10 i ty of [place] 4.2.7.2.686 Edward as Professio [phone] [address] 2021-03-08 2021-03-08 [facility] [id number] N-20 Univers 15:00:00 15:00:00 EDWARD [id number] ity o ben [facility] 2021-03-08 2021-03-08 Outpatient R [facility] [id number] Univers 15:00:00 15:00:00 EDWARD andrewewelina o ben [facility] 2021-03-07 2021-03-07 Orders Doctor MARTHA 1.2.840.114 [id number] Univers 00:00:00 00:00:00 Only Unassigned, MELIZA 350.1.13.10 ity of [place] [facility] 4.2.7.2.686 Edward as [phone] [address] 2021-03-05 2021-03-05 Refgaurang [facility] 1.2.840.114 [id number] Univers 00:00:00 00:00:00 Jenny [facility] 350.1.13.10 it y [place] 4.2.7.2.686 Edward as Professio [phone] [address] 2021-03-05 2021-03-05 Refgaurang Fraser [facility] 1.2.840.114 [id number] Univers 00:00:00 00:00:00 Wondiful A [place] 350.1.13.10 [place].7.2.[place] [phone] Nv dicpa nal [address] [place] [address] 2021-02-22 2021-02-22 Refgaurang Fraser [facility] 1.2.840.114 [id number] Univers 00:00:00 00:00:00 Wondiful A Health 350.1.13.10 ity of [place] 4.2.7.2.686 Edward as Professio [phone] [address] Office Building One 2021-02-21 2021-02-21 Outpatient LEON MOREAUSE EVERETT [id number] MH 10:04:00 15:44:00 [facility] 2021-02-09 2021-02-09 Orders Doctor MARTHA 1.2.840.114 [id number] Univers 00:00:00 00:00:00 Only Unassigned, MELIZA 350.1.13.10 ity of [place] [facility] 4.2.7.2.686 Edward as [phone] [address] 2021-02-07 2021-02-07 Office Kt [facility] 1.2.840.114 [id number] Univers 15:40:09 15:55:09 Visit [facility] 350.1.13.10 it y of [place] 4.2.7.2.686 [place] as Professio [phone] [address] One 2021-02-07 2021-02-07 Outpatient Dulce DORSEY [facility] [id number] Univers 15:45:00 15:45:00 OMID padron [facility] 2021-02-07 2021-02-07 Outpatient Dulce JOHNSON [facility] [id number] Univers 13:00:00 13:00:00 LUIS [id number] ity o f [facility] 2021-02-07 2021-02-07 Jose Maria Fraser [facility] 1.2.840.114 [id number] Univers 00:00:00 00:00:00 Management [facility] 350.1.13.10 ity of [place] 4.2.7.2.686 Edward as Professio [phone] [address] Office [facility] One 2021-02-04 2021-02-04 Urgent Provider, [facility] 1.2.840.114 [id number] Univers 16:53:21 17:45:02 Care Sol [facility] 350.1.13.10 ity of [place] 4.2.7.2.686 Edward as Professio [phone] Nv dic[address] Office [facility] One 2021-02-04 2021-02-04 Outpatient R [facility] [id number] -[id number] Univers 17:00:00 17:00:00 [id number] ity [facility] 2021-02-04 2021-02-04 Outpatient R SOL [facility] [id number] Univers 17:00:00 17:00:00 MARTHA ity [facility] 2021-01-26 2021-01-26 Outpatient R [facility] [id number] -[id number] Univers 09:40:00 09:40:00 [id number] ity [facility] 2021-01-26 2021-01-26 Outpatient R [facility] [id number] Univers 09:40:00 09:40:00 [facility] 2021-01-26 2021-01-26 Android Programmer Lab, [facility] Pob I [facility] 1.2. 840.114 [id number] Univers 08:47:10 09:15:12 Visit Jose [facility] 350.1.13.1 0 ity of [place] 4.2.7.2.686 Edward as Professio [phone] [address] 2021-01-25 2021-01-25 Office [facility] 1.2.840.114 [id number] Univers 14:45:18 15:28:27 Visit Wondiful A Health 350.1.13.10 ity of [place] 4.2.7.2.686 Edward as Professio [phone] [facility] nal [address] [place] [address] Office [facility] 2021-01-25 2021-01-25 Outpatient R EVELIO [facility] [id number]-20 Univers 15:00:00 15:00:00 WONDIFUL [id number] ity o f [facility] 2021-01-25 2021-01-25 Outpatient R EVELIO [facility] [id number] Univers 15:00:00 15:00:00 WONDIFUL ity o f [facility] 2021-01-19 2021-01-19 Outpatient R SAKINA MILLAN [facility] [id number] Univers 14:00:00 14:00:00 SAKINA MILLAN 2105 [id number] [facility] 2021-01-19 2021-01-19 Outpatient R MEAGAN MILLANVTNamrata [facility] [id number] Univers 14:00:00 14:00:00 SAKINA [facility]AN [facility] 2021-01-19 2021-01-19 Just[facility] 1.2.840.114 [id number] Univers 00:00:00 00:00:00 Wondiful A [place] 350.1.13.10 ity [facility] 4.2.7.2.[place] [phone] [place] [address] Branch Building 2021-01-04 2021-01-04 [facility] [id number] Univers 16:15:00 16:15:00 WONDIFUL [id number] ity o [facility] 2020-12-07 2020-12-07 Outpatient [facility] [id number] Univers 10:15:00 10:15:00 SHEEBA [id number] ity o [facility] 2020-12-07 2020-12-07 Outpatient [facility] [id number] Univers 10:15:00 10:15:00 SHEEBA ity o [facility] 2020-12-01 2020-12-01 Just[facility] 1.2.840.114 [id number] Univers 00:00:00 00:00:00 Wondiful A Health 350.1.13.[address] [facility] 4.2.7.2.686 Edward as Professio [phone] [place] [address] Branch Office Building One 2020-11-17 2020-11-17 Outpatient R MEAGAN MILLANVTNamrata [facility] [id number] Univers 14:30:00 14:30:00 SAKINA MILLAN 2102 [id number] ity [facility] 2020-11-17 2020-11-17 Outpatient R SAKINA MILLAN [facility] [id number] Univers 14:30:00 14:30:00 SAKINA MILLAN ity of [facility] 2020-11-14 2020-11-14 Emergency [facility] 1.2.362.560 [id number] Univers 12:38:00 15:59:00 Patricia Medina 350.1.13.10 i ty [place] 4.2.7.2.686 [place] [phone] [facility] 084 Branch 2020-11-14 2020-11-14 Orders Doctor MARTHA 1.2.840.114 [id number] Univers 00:00:00 00:00:00 Only Unassigned, MELIZA 350.1.13.10 ity of [place] [facility] 4.2.7.2.686 Edward as [phone] [facility] 009 Branch 2020-11-09 2020-11-09 Office [facility] 1.2.840.114 [id number] Univers 10:21:15 11:08:18 Visit Sheeba Medina 350.1.13.10 [place] 4[place]2.7.2.[place] [phone] Nv dical nal [address] Building 2020-11-09 2020-11-09 [facility] [id number] N-20 Univers 10:15:00 10:15:00 SHEEBA [id number] vito o f [facility] 2020-11-09 2020-11-09 Outpatient R [facility] [id number] Univers 10:15:00 10:15:00 SHEEBA padron o f [facility] 2020-10-22 2020-10-22 Justo [facility] 1.2.840.114 [id number] Univers 00:00:00 00:00:00 Wondiful A Health 350.1.13.10 ity of [place] 4.2.7.2.686 Edward as Professio [phone] Nv dical nal 044 [address] Office Building One 2020-10-13 2020-10-13 Office [facility] 1.2.016.904 [id number] Univers 14:30:00 15:00:00 Visit Sakina Medina 350.1.13.10 it[place] of [place] 4[place]2.7.2.[place] [phone] Nv dical nal 085 [facility] 2020-10-13 2020-10-13 Outpatient R SALEEMMEAGAN MURRIETAVTNamrata [facility] [id number] Univers 14:30:00 14:30:00 SALEEMMEAGAN MURRIETAERENDIRA 2100 ity [facility] 2020-10-13 2020-10-[address] [facility] [id number] Univers 14:30:00 14:30:00 SALEEMFERN [facility] 2020-10-09 2020-10-09 Patient [facility] 1.2.840.114 [id number] Univers 00:00:00 00:00:00 Outreach Henry PRIMARY 350.1.13.10 i ty [facility] 4.2.7.2.686 [place] [phone] Nv dical [address] 2020-10-08 2020-10-08 Orders Doctor THOMAS 1.2.840.114 [id number] Univers 00:00:00 00:00:00 Only Unassigned, MELIZA 350.1.13.10 ity of [place] [facility] 4.2.7.2.686 Edward as [phone] [address] 2020-10-06 2020-10-06 Orders Doctor THOMAS 1.2.840.114 [id number] Univers 00:00:00 00:00:00 Only Unassigned, MELIZA 350.1.13.10 ity of [place] [facility] 4.2.7.2.686 Edward as [phone] [address] 2020-10-05 2020-10-05 Outpatient R [facility] [id number] Univers 14:00:00 14:00:00 [id number] ity [facility] 2020-10-05 2020-10-05 Outpatient [facility] [id number] Univers 14:00:00 14:00:00 SENDIL [facility] 2020-10-05 2020-10-05 Orders Doctor MARTHA Ji2.840.114 [id number] Univers 00:00:00 00:00:00 Only Unassigned, MELIZA 350.1.13.10 ity of [place] [facility] 4.2.7.2.686 Edward as [phone] [address] 2020-10-05 2020-10-05 Telephone [facility] 1.2.840.114 [id number] [facility] 00:00:00 00:00:00 Wondiful A Health 350.1.13.10 ity of [place] 4.2.7.2.686 Edward as Professio [phone] [facility] 044 Atlas Office [facility] One 2020-09-28 2020-09-28 Office [facility] 1.2.840.114 [id number] [facility] 09:23:42 10:43:16 Visit Sheeba [place] 350.1.13.10 it[place] 4.2.7.2.[place] [phone] Nv dical [facility] 205 [facility] 2020-09-28 2020-09-28 Outpatient R [facility] [id number]-20 Univers 09:15:00 09:15:00 SHEEBA [id number] andrewewelina cosme [facility] 2020-09-28 2020-09-28 Outpatient R [facility] [id number] Univers 09:15:00 09:15:00 SHEEBA vito cosme ben [facility] 2020-09-28 2020-09-28 Telephone [facility] 1.2.840.114 [id number] [facility] 00:00:00 00:00:00 Wondiful A Health 350.1.13.10 ity of [place] 4.2.7.2.686 Edward as Professio [phone] [facility] 044 Atlas Office [facility] One 2020-09-21 2020-09-21 Android Programmer Lab, [facility] I [facility] 1.2. 840.114 [id number] Univers 13:34:10 13:54:10 Visit Ronal Fraserkirstenkyle [facility] Health 350.1.13.1 0 ity of [place] 4.2.7.2.686 Edward as Professio [phone] [address] One 2020-09-21 2020-09-21 Office [place] [facility] 1.2.840.114 [id number] Univers 12:43:33 13:35:18 Visit Wondiful A Health 350.1.13.10 ity of [place] 4.2.7.2.686 Edward as Professio [phone] [address] One 2020-09-21 2020-09-21 Outpatient R EVELIO [facility] [id number]-20 Univers 13:00:00 13:00:00 WONDIFUL [id number] ity o f [facility] 2020-09-21 2020-09-21 Outpatient R EVELIO [facility] [id number] Univers 13:00:00 13:00:00 WONDIFUL ity o f [facility] 2020-09-15 2020-09-15 Outpatient R EVELIO [facility] [id number]-20 Univers 15:00:00 15:00:00 WONDIFUL [id number] ity o [facility] 2020-09-06 2020-09-06 Refill [facility] 1.2.840.114 [id number] Univers 00:00:00 00:00:00 Wondiful A [place] 350.1.13.10 it[place] 4.2.7.2.686 [place] Profess[place] [phone] [address] 2020-09-01 2020-09-01 Outpatient R LAKSHMI [facility] [id number] Univers 13:30:00 13:30:00 TITUS [id number] ity [facility] 2020-09-01 2020-09-01 Outpatient [facility] [id number] Univers 13:30:00 13:30:00 TITUS ity [facility] 2020-09-01 2020-09-01 Case [facility] 1.2.840.114 [id number] Univers 00:00:00 00:00:00 Management Wondiful A Health 350.1.13.10 ity of [place] 4.2.7.2.686 Edward as Professio [phone] [address] One 2020-08-31 2020-08-31 Refill [facility] 1.2.840.114 [id number] Univers 00:00:00 00:00:00 Wondiful A Health 350.1.13.10 ity of [place] 4.2.7.2.686 Edward as Professio [phone] [address] Office [facility] One 2020-08-30 2020-08-30 Emergency Lona Kelley [facility] 1.2.840.114 [id number] Univers 18:51:00 23:05:00 Shahla [place] 350.1.13.10 i ty [place] 4.2.7.2.686 [place] [phone] [facility] 084 Atlas 2020-08-30 2020-08-30 [place] [facility] 1.2.840.114 [id number] Univers 00:00:00 00:00:00 Wondiful A Health 350.1.13.10 ity of [place] 4.2.7.2.686 Edward as Professio [phone] [address] One 2020-08-26 2020-08-26 Case [facility] 1.2.840.114 [id number] Univers 00:00:00 00:00:00 Management Wondiful A Health 350.1.13.10 ity of [place] 4.2.7.2.686 Edward as Professio [phone] [address] 2020-08-25 2020-08-25 [facility] 1.2.631.507 [id number] Univers 13:02:50 13:10:00 Encounter Wondiful A [place] 350.1.13.10 ity of [place] 4.2.7.2.686 [place] [phone] [facility] 807 Atlas 2020-08-25 2020-08-25 [facility] 1.2.813.158 [id number] Univers 12:47:30 13:01:00 Encounter Wondiful A [place] 350.1.13.10 ity of [place] 4.2.7.2.686 [place] [phone] [facility] [address] 2020-08-25 2020-08-25 Outpatient EVELIO [facility] [id number] N-20 Univers 13:00:00 13:00:00 WONDIFUL ity o f [facility] 2020-08-25 2020-08-25 Outpatient R EVELIO [facility] [id number] Univers 00:00:00 00:00:00 WONDIFUL ity o f [facility] 2020-08-25 2020-08-25 Refill [facility] 1.2.840.114 [id number] Univers 00:00:00 00:00:00 Qiarhonda [place] 350.1.13.10 it[place] 4.2.7.2.686 [place] [phone] Nv dical nal 059 [facility] 2020-08-25 2020-08-25 Case [facility] 1.2.840.114 [id number] Univers 00:00:00 00:00:00 Management Wondiful A Health 350.1.13.10 ity of [place] 4.2.7.2.686 Edward as Professio [phone] Nv dical nal 044 [facility] 2020-08-24 2020-08-24 Android Programmer Lab, Adc Fam Pob I [facility] 1.2. 840.114 [id number] Univers 10:22:51 10:42:51 Visit Jose Fraser [facility] 350.1.13.1 0 ity of [place] 4.2.7.2.686 Edward as Professio [phone] Nv dical nal 044 [facility] 2020-08-24 2020-08-24 Outpatient R [facility] [id number] -[id number] Univers 10:20:00 10:20:00 [id number] ity of [facility] 2020-08-24 2020-08-24 Outpatient R EVELIO [facility] [id number] Univers 10:20:00 10:20:00 WONDIFUL ity o ben [facility] 2020-08-23 2020-08-23 Office Evelio [facility] 1.2.840.114 [id number] Univers 09:39:39 17:20:11 Visit Wonkirstenful A Health 350.1.13.10 ity of [place] 4.2.7.2.686 Edward as Professio [phone] [facility] 044 [address] Office [facility] 2020-08-23 2020-08-23 Outpatient EVELIO [facility] [id number] N-20 Univers 16:15:00 16:15:00 WONDIFUL [id number] ity o f [facility] 2020-08-23 2020-08-23 Outpatient R EVELIO [facility] [id number] Univers 16:15:00 16:15:00 WONDIFUL ity o f [facility] 2020-08-16 2020-08-16 Telephone Evelio [facility] 1..840.114 [id number] Univers 00:00:00 00:00:00 Wondiful A Health 350.1.13.10 ity of [place] 4.2.7.2.686 Edward as Professio [phone] [facility] 044 [facility] 2020-08-13 2020-08-13 Refill [place] 1..840.114 [id number] Univers 00:00:00 00:00:00 Wondiful A Health 350.1.13.10 ity of [place] 4.2.7.2.686 Edward as Professio [phone] [facility] 044 [facility] 2020-08-11 2020-08-11 Office Monty [facility] 1..859.858 [id number] Univers 15:12:55 15:42:55 Visit Sakina Medina 350.1.13.10 it[place] of [place] 4.2.7.2.686 [place] [phone] [facility] 085 [facility] 2020-08-11 2020-08-11 Outpatient R SAKINA MILLAN [facility] [id number] Univers 15:30:00 15:30:00 SAKINA MILLAN 2010 ity [facility] 2020-08-11 2020-08-11 Outpatient R SAKINA MILLAN [facility] [id number] Univers 15:30:00 15:30:00 SAKINA MILLAN ity [facility] 2020-08-11 2020-08-11 Orders Doctor THOMAS [id number] Univers 00:00:00 00:00:00 Only Unassigned, MELIZA [id number] ity of [place] [facility] [id number] Edward as [id number] [address] 2020-08-09 2020-08-09 Office Vidal, [facility] [id number] Univers 14:34:46 15:13:12 Visit Luis Medina [id number] [id number] [facility] [id number] N[place] dical nal 059 [facility] 2020-08-09 2020-08-09 Outpatient R VIDAL, [facility] [id number] Univers 14:40:00 14:40:00 BABITALORNA [id number] ity o f [facility] 2020-08-09 2020-08-09 Outpatient R VIDAL, [facility] [id number] Univers 14:40:00 14:40:00 LUIS ity o f [facility] 2020-07-17 2020-07-17 Outpatient [facility] [id number] Univers 20:00:00 20:00:00 [id number] ity of [facility] 2020-07-17 2020-07-17 Outpatient R SAKINA MILLAN [facility] [id number] Univers 20:00:00 20:00:00 SAKINA MILLAN ity of [facility] 2020-07-17 2020-07-17 Orders Doctor MARTHA 1.2.840.114 [id number] Univers 00:00:00 00:00:00 Only Unassigned, MELIZA 350.1.13.10 ity of [place] [facility] 4.2.7.2.686 Edward as [phone] [address] 2020-07-16 2020-07-16 Android Programmer 1, [facility] Bed [facility] 1. 2.840.114 [id number] Univers 13:58:59 16:28:59 Visit Sakina Millan 350.1.13. 10 it[place] of [place] [phone] [facility] [address] 2020-07-15 2020-07-15 Laboratory Only, Adc Test [facility] 1.2.840. 114 [id number] Univers 11:55:53 12:10:53 Only Kevin Greene 350.1.13.10 ity of [place] [phone] [address] 2020-07-15 2020-07-15 Outpatient [facility] [id number] -[id number] Univers 11:45:00 11:45:00 [id number] ity of [facility] 2020-07-15 2020-07-15 Outpatient R [facility] [id number] Univers 11:45:00 11:45:00 ity [facility] 2020-07-09 2020-07-09 Office Vidal, [facility] 1..840.114 [id number] Univers 11:44:34 12:19:20 Visit Luis Medina 350.1.13.10 it[place] of [place] [phone] Nv dical nal 059 [facility] 2020-07-09 2020-07-09 Outpatient R VIDAL, [facility] [id number] -[id number] Univers 11:40:00 11:40:00 BABITALORNA [id number] ity o f [facility] 2020-07-09 2020-07-09 Outpatient R VIDAL, [facility] [id number] Univers 11:40:00 11:40:00 BABITALORNA ity o f [facility] 2020-07-09 2020-07-09 Refgaurang Fraser, [facility] 1..840.114 [id number] Univers 00:00:00 00:00:00 Jose Medina 350.1.13.10 it[place] of [place] [phone] Nv dical nal 044 [facility] 2020-07-07 2020-07-07 Office Monty [facility] 1.2.485.527 [id number] Univers 14:17:59 14:47:59 Visit Sakina Medina 350.1.13.10 ity of [place] [phone] Nv dical nal 085 [facility] 2020-07-07 2020-07-07 Outpatient R MONTY SAKINA [facility] [id number] Univers 14:30:00 14:30:00 SAKINA MILLAN 2009 ity [facility] 2020-07-07 2020-07-07 Outpatient R ELSAMEAGAN GAXIOLAVTNamrata [facility] [id number] Univers 14:30:00 14:30:00 SAKINA MILLAN ity [facility] 2020-07-06 2020-07-06 [facility] 1.2.840.114 [id number] Univers 00:00:00 00:00:00 Wondiful [facility] 350.1.13.10 ity of [place] 4.2.7.2.686 Edward as Professio [phone] [facility] 044 [facility] 2020-06-29 2020-06-29 Telephone Evelio [facility] 1.2.840.114 [id number] Univers 00:00:00 00:00:00 Wondiful A Health 350.1.13.10 ity of [place] 4.2.7.2.686 Edward as Professio [phone] [address] 2020-06-28 2020-06-28 Case Evelio [facility] 1.2.840.114 [id number] Univers 00:00:00 00:00:00 Management Wondiful [facility] 350.1.13.10 ity of [place] 4.2.7.2.686 Edward as Professio [phone] [address] 2020-06-21 2020-06-21 Android Programmer Lab, Adc Fam Pob I [facility] 1.2. 840.114 [id number] Univers 15:51:13 16:01:13 Visit Jose Fraser [facility] 350.1.13.1 0 ity of [place] 4.2.7.2.686 Edward as Professio [phone] [facility] nal [address] [facility] 2020-06-21 2020-06-21 Office Evelio [facility] 1..840.114 [id number] Univers 14:55:43 15:53:28 Visit Wondiful [facility] 350.1.13.10 ity of [place] 4.2.7.2.686 Edward [facility] [phone] Nv dic[address] Office [facility] One 2020-06-21 2020-06-21 Outpatient R EVELIO [facility] [id number]-20 Univers 15:15:00 15:15:00 WONDIFUL ity o f [facility] 2020-06-21 2020-06-21 Outpatient R EVLEIO [facility] [id number] Univers 15:15:00 15:15:00 WONDIFUL ity o f [facility] 2020-06-17 2020-06-17 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 10 ity of [place] 4.2.7.2.686 [facility] [phone] [address] 2020-06-17 2020-06-17 Outpatient R [facility] [id number] -[id number] Univers 13:00:00 13:00:00 ity [facility] 2020-06-17 2020-06-17 Outpatient R [facility] [id number] Univers 13:00:00 13:00:00 ity [facility] 2020-06-15 2020-06-15 Outpatient R [facility] [id number] -[id number] Univers 14:00:00 14:00:00 [id number] ity [facility] 2020-06-15 2020-06-15 Outpatient R SAKINA MILLAN [facility] [id number] Univers 14:00:00 14:00:00 SAKINA MILLAN ity [facility] 2020-06-11 2020-06-11 Outpatient R [facility] [id number] Univers 15:00:00 15:00:00 [id number] ity [facility] 2020-06-11 2020-06-11 Outpatient R [facility] [id number] Univers 15:00:00 [facility] 2020-[facility]-11 2020-06-11 Laboratory Only, Adc Test [facility] 1.2.840. 114 [id number] Univers 14:10:00 14:25:00 Only [place], Kevin Medina 350.1.13.10 ity of [place] [phone] [facility] [address] 2020-06-11 2020-06-11 Orders Doctor MARTHA 1.2.840.114 [id number] Univers 00:00:00 00:00:00 Only Unassigned, MELIZA 350.1.13.10 [facility] 4.2.7.2.686 Edward as [phone] [facility] 009 [address] 2020-06-09 2020-06-09 Office Vidal, [facility] 1.2.840.114 [id number] Univers 14:14:37 14:57:58 Visit Luis Medina 350.1.13.10 ity of [place] [phone] Nv dical nal 059 Branch [facility] 2020-06-09 2020-06-09 Outpatient R VIDAL [facility] [id number] -[id number] Univers 14:20:00 14:20:00 LUIS [id number] ity o [facility] 2020-06-09 2020-06-09 Outpatient R VIDAL [facility] [id number] Univers 14:20:00 14:20:00 BABITALORNA ity o f [facility] 2020-06-09 2020-06-09 Telephone [facility] 1.2.840.114 [id number] Univers 00:00:00 00:00:00 Wondiful [facility] Health 350.1.13.10 ity of [place] 4.2.7.2.686 Edward as Professio [phone] Nv dical nal 044 Branch Office Building One 2020-06-08 2020-06-08 Outpatient R EVELIO [facility] [id number] N-20 Univers 11:45:00 11:45:00 JOSE [id number] ity o f [facility] 2020-06-08 2020-06-08 Outpatient R EVELIO [facility] [id number] Univers 11:45:00 11:45:00 WONDIFUL ity o f [facility] 2020-06-07 2020-06-07 Office [facility] 1.2.840.114 [id number] Univers 10:11:55 10:51:44 Visit Wondiful [facility] 350.1.13.10 ity of [place] 4.2.7.2.686 Edward as Professio [phone] [address] 2020-06-07 2020-06-07 Outpatient R EVELIO [facility] [id number] N-20 Univers 10:00:00 10:00:00 WONDIFUL [id number] ity o f [facility] 2020-06-07 2020-06-07 [facility] [id number] Univers 10:00:00 10:00:00 WONDIFUL ity o f [facility] 2020-06-07 2020-06-07 Refill [facility] 1.2.840.114 [id number] Univers 00:00:00 00:00:00 Wondiful [facility] Health 350.1.13.10 ity of [place] 4.2.7.2.686 Edward as Professio [phone] [address] 2020-06-03 2020-06-03 Emergency [facility] 1.2.840.114 [id number] Univers 15:17:00 18:33:00 Ko B [place] 350.1.13.10 i ty of [place] [phone] [address] 2020-06-03 2020-06-03 Telephone [facility] 1.2.840.114 [id number] Univers 00:00:00 00:00:00 Wondiful [facility] Health 350.1.13.10 ity of [place] 4.2.7.2.686 Edward as Professio [phone] [address] 2020-06-01 2020-06-01 Refill [facility] 1.2.840.114 [id number] Univers 00:00:00 00:00:00 Wondiful A [place] 350.1.13.10 ity of [place] [phone] [facility] 044 [facility] 2020-05-10 2020-05-27 Office Evelio [facility] 1.2.840.114 [id number] Univers 13:59:31 17:39:50 Visit Wondiful A [place] 350.1.13.10 ity of [place].2.[place] [phone] [address] 2020-05-23 2020-05-23 [facility]ill [place] [facility] 1.2.840.114 [id number] Univers 00:00:00 00:00:00 Wondiful [facility] Health 350.1.13.10 ity of [place] 4.2.7.2.686 Edward as Professio [phone] [address] 2020-05-12 2020-05-12 Outpatient [facility] [id number] Univers 11:00:00 11:00:00 [id number] ity of [facility] 2020-05-10 2020-05-10 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 10 ity of [place].2.[place] [phone] [facility] 353 [facility] 2020-05-10 2020-05-10 Outpatient R EVELIO [facility] [id number]-20 Univers 15:30:00 15:30:00 WONDIFUL [id number] ity o f [facility] 2020-05-10 2020-05-10 Outpatient R EVELIO [facility] [id number] Univers 15:30:00 15:30:00 WONDIFUL ity o f [facility] 2020-04-16 2020-04-16 Refgaurang [facility] 1.2.840.114 [id number] Univers 00:00:00 00:00:00 Wondiful A Health 350.1.13.10 ity of [place] 4.2.7.2.686 Edward as Professio [phone] [address] 2020-04-13 2020-04-13 Telephone [facility] 1.2.840.114 [id number] Univers 00:00:00 00:00:00 Wondiful A [place] 350.1.13.10 ity of [place].2.[place] [phone] Nv dical nal 044 [facility] 2020-04-13 2020-04-13 Refill [facility] 1.2.840.114 [id number] Univers 00:00:00 00:00:00 Wondiful A Health 350.1.13.10 ity of [place] 4.2.7.2.686 Edward as Professio [phone] Nv dicpa nal 044 [address] Office [address] One 2020-04-12 2020-04-12 Orders Doctor MARTHA 1.2.840.114 [id number] Univers 00:00:00 00:00:00 Only Unassigned, MELIZA 350.1.13.10 ity of [place] [facility] 4.2.7.2.686 Edward as [phone] [facility] [address] 2020-02-26 2020-02-26 Office [facility] 1.2.840.114 [id number] Univers 14:19:17 15:14:21 Visit Bhavin Medina 350.1.13.10 i ty of [place]2.[place].2.[place] [phone] Nv dical nal 085 [facility] 2020-02-26 2020-02-26 Outpatient R BHAVIN CLAYTON [facility] [id number] Univers 14:20:00 14:20:00 BHAVIN CLAYTON [id number] i ty of [facility] 2020-02-26 2020-02-26 Outpatient R BHAVIN CLAYTON [facility] [id number] Univers 14:20:00 14:20:00 BHAVIN CLAYTON i ty of [facility] 2020-02-23 2020-02-23 Telephone Dalia [facility] 1.2.840.114 [id number] Univers 00:00:00 00:00:00 Endoscopy ICAL 350.1.13.10 ity of [place] 4.2.7.2.686 Edward as BLDG [phone] [facility] 020 [address] 2020-02-19 2020-02-19 Outpatient R BHAVIN CLAYTON [facility] [id number]-20 Univers 09:40:00 09:40:00 BHAVIN CLAYTON [id number] i ty of [facility] 2020-02-16 2020-02-16 Orders Doctor MARTHA 1.2.840.114 [id number] Univers 00:00:00 00:00:00 Only Unassigned, MELIZA 350.1.13.10 ity of [place] [facility] 4.2.7.2.686 Edward as [phone] [facility] [address] 2020-01-20 2020-01-20 Refill [facility] 1.2.840.114 [id number] Univers 00:00:00 00:00:00 Wondiful A Health 350.1.13.10 ity of [place] 4.2.7.2.686 Edward as Professio [phone] [facility] 044 [address] Office [facility] 2020-01-19 2020-01-19 Telephone [facility] 1.2.556.551 [id number] Univers 00:00:00 00:00:00 Qiangjun [place] 350.1.13.10 ity of [place] [phone] [facility] 059 [facility] 2020-01-16 2020-01-16 Telephone [facility] 1.2.840.114 [id number] Univers 00:00:00 00:00:00 Wondiful A Health 350.1.13.10 ity of [place] 4.2.7.2.686 Edward as Professio [phone] Nv dicpa nal 044 [address] Office [facility] 2020-01-12 2020-01-12 Telephone [facility] 1.2.840.114 [id number] Univers 00:00:00 00:00:00 Wondiful A [place] 350.1.13.10 ity of [place].2.[place] [phone] [facility] 044 [facility] 2020-01-12 2020-01-12 Orders Doctor THOMAS 1.2.840.114 [id number] Univers 00:00:00 00:00:00 Only Unassigned, MELIZA 350.1.13.10 [facility] 4.2.7.2.686 Edward as [phone] [address] 2020-01-05 2020-01-05 Outpatient R EVELIO [facility] [id number] Univers 08:15:00 08:15:00 WONDIFUL [id number] ity o f [facility] 2020-01-05 2020-01-05 [facility] [id number] Univers 08:15:00 08:15:00 WONDIFUL ity o f [facility] 2020-01-05 2020-01-05 Telemedici [facility] 1.2.840.114 [id number] Univers 07:03:47 07:33:47 ne Visit Wondiful A [place] 350.1.13.10 ity of [place].2.[place] [phone] [address] 2019-12-30 2019-12-30 Telephone [place] [facility] 1.2.840.114 [id number] Univers 00:00:00 00:00:00 Wondiful A Health 350.1.13.10 ity of [place] 4.2.7.2.686 Edward as Professio [phone] [address] Office Building One 2019-12-23 2019-12-23 Telemedici [place] [facility] 1.2.840.114 [id number] Univers 07:43:58 15:05:06 ne Visit Wondiful A [place] 350.1.13.10 ity of [place] 4[place]2.[place].2.[place] [phone] [address] 2019-12-23 2019-12-23 Outpatient R EVELIO [facility] [id number] Univers 13:00:00 13:00:00 WONDIFUL ity o f [facility] 2019-12-23 2019-12-23 [facility]patient [facility] [id number] Univers 13:00:00 13:00:00 WONDIFUL ity o f [facility] 2019-12-21 2019-12-21 Refgaurang Fraser [facility] 1.2.840.114 [id number] Univers 00:00:00 00:00:00 Wondiful A Health 350.1.13.10 ity of [place] 4.2.7.2.686 Edward as Professio [phone] Nv dical nal 044 [facility] One 2019-12-11 2019-12-11 Transition Bonnie Rios 1.2.840.114 [id number] Univers 00:00:00 00:00:00 of Care Sofia Price 350.1.13.10 it y of [place].2.[place] [phone] [address] 2019-12-10 2019-12-10 Transition Bonnie Rios 1.2.840.114 [id number] Univers 00:00:00 00:00:00 of Care Sofia Price 350.1.13.10 it y of [place].2.[place] [phone] [address] 2019-12-10 2019-12-10 Telephone Evelio [facility] 1.2.840.114 [id number] Univers 00:00:00 00:00:00 Wondiful A [place] 350.1.13.10 ity of [place] 4.2.7.2.[place] [phone] Nv dical nal 044 [facility] 2019-12-06 2019-12-09 Inpatient X KYRIE MIANGELA [facility] [place] [place] [id number] Univers 20:15:25 19:57:00 MERCEwelina ity of [facility] 2019-12-06 2019-12-09 [facility] Everton Scott [facility] 1.2.840.114 [id number] Univers 20:15:25 19:57:00 Encounter Kelly Mittal 350.1.13.10 ity of [place].2.[place] [phone] [facility] [address]81 [address] 2019-12-09 2019-12-09 Refgaurang Fraser [facility] 1.2.840.114 [id number] Univers 00:00:00 00:00:00 Wondiful A Health 350.1.13.10 ity of [place] 4.2.7.2.686 Edward as Juan Pablo [phone] [address] Office Building One 2019-11-28 2019-11-28 Outpatient R JUANCARLOS [facility] [id number] Univers 08:30:00 08:30:00 NAFISA [id number] ity of [facility] 2019-11-19 2019-11-19 Telephone Motility, [facility] 1.2.840.114 [id number] Univers 00:00:00 00:00:00 Endoscopy ICAL 350.1.13.10 ity of [place] 4.2.7.2.686 Edward as BLDG [phone] [facility] 020 [address] 2019-11-18 2019-11-18 Telephone Motility, [facility] 1.2.840.114 [id number] Univers 00:00:00 00:00:00 Endoscopy ICAL 350.1.13.10 ity of [place] 4.2.7.2.686 Edwrad as BLDG [id number] [facility] [address]20 [address] 2019-11-14 2019-11-14 Emergency X [facility] ERT [id number] Univers 18:32:04 20:53:00 PATRICIA [facility] 2019-11-14 2019-11-14 Emergency [facility] 1.2.480.219 [id number] Univers 18:32:04 20:53:00 Patricia Medina 350.1.13.10 i ty of [place].2.[place] [phone] [facility] 084 [address] 2019-11-14 2019-11-14 Orders Doctor MARTHA 1.2.840.114 [id number] Univers 00:00:00 00:00:00 Only Unassigned, MELIZA 350.1.13.10 ity of [place] [facility] 4.2.7.2.686 Edward as [phone] [facility] [address] 2019-11-13 2019-11-13 Telephone Motility, [facility] 1.2.840.114 [id number] Univers 00:00:00 00:00:00 Endoscopy ICAL 350.1.13.10 ity of [place] 4.2.7.2.686 Edward as BLDG [phone] [facility] [address]20 [address] 2019-11-12 2019-11-12 Orders Doctor MARTHA 1.2.840.114 [id number] Univers 00:00:00 00:00:00 Only Unassigned, MELIZA 350.1.13.10 ity of [place] [facility] 4.2.7.2.686 Edward as [phone] [facility] 009 [address] 2019-11-08 2019-11-08 Urgent Jeffrey Ko [facility] 1.2.840.11 [id number] Univers 18:44:29 18:59:29 Care Unknown, Attending Health 350.1.13.10 ity of Surgical 4.2.7.2.686 Edward as Specialti [phone] Nv dical es 370 [facility] 2019-11-06 2019-11-06 Telephone Motility, [facility] 1.2.840.114 [id number] Univers 00:00:00 00:00:00 Endoscopy ICAL 350.1.13.10 ity of [place] 4.2.7.2.686 Edward as BLDG [phone] [address] 2019-11-04 2019-11-04 Telephone Motility, [facility] 1.2.840.114 [id number] Univers 00:00:00 00:00:00 Endoscopy ICAL 350.1.13.10 ity of [place] 4.2.7.2.686 Edward as BLDG [phone] [address] 2019-10-30 2019-10-30 Office Evelio [facility] 1.2.840.114 [id number] Univers 09:26:55 10:26:49 Visit Wondiful A Health 350.1.13.10 ity of [place] 4.2.7.2.686 Edward as Professio [phone] Nv dical nal 044 [address] Office Building One 2019-10-30 2019-10-30 Case Evelio [facility] 1.2.840.114 [id number] Univers 00:00:00 00:00:00 Management Wondiful A Health 350.1.13.10 ity of [place] 4.2.7.2.686 Edward as Professio [phone] Me dical nal 044 [facility] 2019-10-30 2019-10-30 [facility] 1.2.840.114 [id number] Univers 00:00:00 00:00:00 Wondiful A Health 350.1.13.10 ity of [place] 4.2.7.2.686 Edward as Professio [phone] [facility] [address] [facility] 2019-10-21 2019-10-21 Telephone Motility, [facility] 1.2.840.114 [id number] Univers 00:00:00 00:00:00 Endoscopy ICAL 350.1.13.10 ity of [place] 4.2.7.2.686 Edward as BLDG [phone] [address] 2019-10-09 2019-10-09 Telephone Motility, [facility] 1.2.840.114 [id number] Univers 00:00:00 00:00:00 Endoscopy ICAL 350.1.13.10 ity of [place] 4.2.7.2.686 Edward as BLDG [id number] [address] 2019-08-27 2019-08-27 [facility] [id number] Univers 09:22:45 23:59:00 WONDIFUL ity o f [facility] 2019-06-06 2019-06-06 [facility] 1.2.840.114 [id number] Univers 00:00:00 00:00:00 Surgery Titus Medina 350.1.13.10 ity of [place] [phone] [facility] 204 [facility] 2019-06-05 2019-06-05 Office Jacob [facility] 1.2.825.979 [id number] Univers 12:56:30 14:21:14 Visit Crystal Medina 350.1.13.10 i ty of [place].2.[place] [phone] [facility] 377 [facility] 2019-06-05 2019-06-05 Orders Doctor THOMAS 1.2.840.114 [id number] Univers 00:00:00 00:00:00 Only Unassigned, MELIZA 350.1.13.10 ity of [place] [facility] 4.2.7.2.686 Edward as [phone] [facility] 009 [address] 2019-06-02 2019-06-02 [facility] 1.2.840.114 [id number] Univers 18:45:00 23:59:00 Encounter [facility] 350.1.13.10 ity of Surgical 4.2.7.2.686 Edward as Specialti [phone] Nv dical es 808 [facility] 2019-06-02 2019-06-02 [facility] 1.2.840.114 [id number] Univers 18:15:15 19:44:45 Care Unknown, Attending Health 350.1.13.10 ity of Surgical 4.2.7.2.686 Edward as Specialti [phone] Nv dical es 370 [facility] 2019-06-02 2019-06-02 [facility] 1.2.840.114 [id number] Univers 18:40:00 18:44:00 Encounter [facility] 350.1.13.10 ity of Surgical 4.2.7.2.686 Edward as Specialti [phone] Nv dical es 808 [facility] 2019-06-02 2019-06-02 Telephone [facility] 1.2.840.114 [id number] Univers 00:00:00 00:00:00 Wondiful A Health 350.1.13.10 ity of [place] 4.2.7.2.686 Edward as Professio [phone] Nv dical nal 044 [address] Office [facility] One 2019-05-25 2019-05-25 Orders Doctor MARTHA 1.2.840.114 [id number] Univers 00:00:00 00:00:00 Only Unassigned, MELIZA 350.1.13.10 ity of [place] [facility] 4.2.7.2.686 Edward as [phone] [facility] 009 [address] 2019-04-25 2019-04-25 Office [facility] 1.2.840.114 [id number] [employer] 13:05:24 14:13:17 Visit [facility] 350.1.13.10 ity of [place] 4.2.7.2.686 Edward as Professio [phone] [facility] [address] One 2019-04-25 2019-04-25 Orders Doctor MARTHA 1.2.840.114 [id number] [employer] 00:00:00 00:00:00 Only Unassigned, MELIZA 350.1.13.10 ity of [facility] 4.2.7.2.686 Edward as [phone] [address] 2019-04-16 2019-04-16 Orders Doctor MARTHA 1.2.840.114 [id number] [employer] 00:00:00 00:00:00 Only Unassigned, MELIZA 350.1.13.10 ity of [facility] 4.2.7.2.686 Edward as [phone] [address] Results Test Description Test Time Test Comments Results Result Comments Source IRON PANEL 2021-01-26 22:03:42 Test Item Value Reference Range Interpretation Comme nts IRON (test code = 4990050047) 80 ug/dL 50-160 TIBC (test code = 1389480714) 386 ug/dL 250-410 % FE SAT (test code = 4648641577) 21 % 20-50 Lab Interpretation (test code = 16822-5) [facility]26 17:18:15 Test Item Value Reference Range Interpretation Comments HGB A1C (test code = 6.0 % 4.0-5.7 H 4548-4) KANU (test code = KANU) Reference RangesNormal: <5.7%Prediabetes: 5.7 - 6.4%Diabetes: > 6.5% Lab Interpretation (test Abnormal code = 06935-4) [id number] 17:13:28 Test Item Value Reference Range Interpretation Comments FERRITIN (test code = 13.0 ng/mL 11.0-264.0 [id number]) KANU (test code = KANU) Biotin has been reported to cause a negative bias, interpret results relative to patient's use of biotin. Lab Interpretation (test Normal code = 66174-7) [facility] [id number] 17:09:08 Test Item Value Reference Range Interpretation Comments TSH (test code = See_Comment [Automated message] 8285279351) The system [employer] generated this result transmitted ref erence range: 0.45 - 4 .70 mIU/L. The refe rence range was not u sed to interpret this result as normal/abnor mal. Lab Interpretation (test Normal code = 66909-2) [facility]. METABOLIC PANEL (74352)2021-01-26 16:38:01 Test Item Value Reference Range Interpretation Comments NA (test code = 138 mmol/L 135-145 0244560948) K (test code = 5.2 mmol/L 3.5-5.0 H 7845112275) CL (test code = 103 mmol/L 98-108 7414300510) CO2 TOTAL (test code = 25 mmol/L 23-31 7884497172) AGAP (test code = 2-16 6883253146) BUN (test code = 23 mg/dL 7-23 8445279081) GLUCOSE (test code = 122 mg/dL 70-110 H 5564037732) CREATININE (test code = 1.15 mg/dL 0.50-1.04 H 5310327823) TOTAL BILI (test code = 0.6 mg/dL 0.1-1.2 2928610718) CALCIUM (test code = 9.5 mg/dL 8.6-10.6 8475942018) T PROTEIN (test code = 6.9 g/dL 6.3-8.2 7763296273) ALBUMIN (test code = 4.4 g/dL 3.5-5.0 6238670741) ALK PHOS (test code = 61 U/L 34-122 1679791058) ALTv (test code = 18 U/L 5-35 1742-6) AST(SGOT) (test code = 36 U/L 13-40 5257656797) eGFR (test code = mL/min/1.73m2 2894678830) KANU (test code = KANU) Association of [...] tests). Lab Interpretation Abnormal (test code = 64120-2) [facility]17783)(TOTAL CHOLESTEROL, TRIGLYCERIDES, HDL)2021-01-26 16:38:01 Test Item Value Reference Range Interpretation Comments CHOL (test code = 229 mg/dL 120-200 H 1854082599) HDL (test code = 49 mg/dL >50 L 7262808092) HDLC RATIO (test code = See_Comment H [Au tomated message] 1013357936) The system [employer] generated this result transmit cesar reference range : <=4.5. The refe rence range was not u sed to interpret th is result as normal/abnormal . TRIG (test code = 165 mg/dL 30-170 5083129179) LDL CHOL (test code = 147 mg/dL See_Comment [Auto mated message] 16444-1) The system [employer] generated this result transmit cesar reference range : <=160. The refe rence range was not u sed to interpret th is result as normal/abnormal . VLDL (test code = 33 mg/dL 5-60 6459539768) Lab Interpretation (test Abnormal code = 01349-9) [facility] WITHOUT [id number] 15:50:14 Test Item Value Reference Range Interpretation Comments WBC (test code = See_Comment [Automated message] The 6690-2) system which nerated this result tra nsmitted reference range : 4.30 - 11.10 10*3/?L. The reference range was not used to interpr et this result as normal/abnormal . RBC (test code = See_Comment [Automated message] The 789-8) system which nerated this result tra nsmitted reference range [...] See_Comment [Automated message] The 777-3) system which nerated this result tra nsmitted reference range : 166 - 358 10*3/?L. Th e reference range was not used to interpr et this result as normal/abnormal . MPV (test code = 10.5 fL 9.5-12.9 47264-7) RDW-CV (test code = 14.6 % 12.0-15.5 788-0) RDW-SD (test code = 43.4 fL 39.0-49.9 52501-7) NRBC x10^3 (test <0.01 See_Comment [Automated message] The code = 2908108199) system [facility] generated this result tra nsmitted reference range : 10*3/?L. The reference r dayana was not used to int erpret this result as normal/abnormal . NRBC/100 WBC (test See_Comment [Automat ed message] The code = 1561980809) system [facility] generated this result tra nsmitted reference range : 0.0 - 10.0 /100 WBCs. The reference range was not used to interpr et this result as normal/abnormal . IPF % (test code = 5097048854) [facility] W [id number] 21:14:58 Colonic diverticulosis with sigmoid haustral edema [...] with steatosis.Preliminary Report Dictated by Resident: Sheeba A KohFidel Hill MD., have reviewed this study and agree withthe above report.[facility] HospitalUrinalysis2021-02-28 20:07:00 Test Item Value Reference Range Interpretation Comments APPEARANCE (test code = Cloudy Clear A 8007300629) COLOR (test code = Shirlene Yellow A 3113655205) PH (test code = 4.8-8.0 3873700081) SP GRAVITY (test code = 1.003-1.030 2745075289) GLU U QUAL (test code = Normal Normal 8452237334) BLOOD (test code = Negative Negative 7020649961) KETONES (test code = Negative Negative 0492035184) PROTEIN (test code = 30 mg/dL Negative A 2887-8) UROBILIN (test code = Normal Normal 0611319044) BILIRUBIN (test code = Negative Negative 3811186625) NITRITE (test code = Negative Negative 2698825817) LEUK ULISES (test code = 75/uL Negative A 5100277698) RBC/HPF (test code = See_Comment H [Autom ated message] 0654886202) The system [employer] generated this result transmitted ref erence range: 0 - 3 HP F. The reference range was not used to int erpret this result as normal/abnormal . WBC/HPF (test code = See_Comment H [Autom ated message] 5290679903) The system [employer] generated this result transmitted ref erence range: 0 - 5 HP F. The reference range was not used to int erpret this result as normal/abnormal . BACTERIA (test code = Moderate Negative A 4464008481) MUCOUS (test code = Moderate Negative LPF A 4372849066) SQ EPITH (test code = HPF 4547746090) Lab Interpretation (test Abnormal code = 43264-9) [facility] HospitalTroponin [id number] 19:43:00 Test Item Value Reference Range Interpretation Comments TROPONIN I (test 0.002 ng/mL See_Comment [Automated code = 2921964417) message] The system which generated this result [...] ? Lab Interpretation Normal (test code = 18347-2) [facility]aPTT2021[facility] 19:40:00 Test Item Value Reference Range Interpretation Comments APTT Patient (test See_Comment [Automat ed code = 3173-2) message] The system which generated this result transmitted reference range : 23 - 38 Seconds . The reference range was not used to interpr et this result as normal/abnormal . KANU (test code = KANU) The [facility] patient population mean normal value for aPTT is 30 seconds. Lab Interpretation Normal (test code = 51434-5) [facility] HospitalProthrombin Time (PT) / [id number] 19:38:00 Test Item Value Reference Range Interpretation [...] tions. Lab Interpretation (test Normal code = 83739-1) [facility] HospitalBasi Metabolic Panel (NA, K, CL, CO2, GLUCOSE, BUN, CREATININE, CA)2020-11-14 19:32:00 Test Item Value Reference Range Interpretation Comments NA (test code = 136 mmol/L 135-145 2096151246) K (test code = 4.2 mmol/L 3.5-5 3788422871) CL (test code = 103 mmol/L 98-108 2710190411) CO2 TOTAL (test code = 25 mmol/L 23-31 5116544996) AGAP (test code = 2-16 8245193708) BUN (test code = 20 mg/dL 7-23 5378612282) GLUCOSE (test code = 148 mg/dL 70-110 H 1036989927) CREATININE (test code = 1.16 mg/dL 0.5-1.04 H 4152942428) CALCIUM (test code = 9.0 mg/dL 8.6-10.6 1516870709) eGFR Calculation mL/min/1.73m2 (Non-) (test code = 0469839231) eGFR Calculation mL/min/1.73m2 () (test code = 1396717459) KANU (test code = KANU) Association of [...] tests). Lab Interpretation Abnormal (test code = 02824-6) [facility] HospitalHepatic Function Panel (ALB, T.PRO, BILI T, BU/BC, ALT, AST, ALK PHOS)2020-11-14 19:32:00 Test Item Value Reference Range Interpretation Comments TOTAL BILI (test code = 9983747880) 0.6 mg/dL 0.1-1.1 BILI UNCON (test code = 7124509322) 0.5 mg/dL 0.1-1.1 BILI CONJ (test code = 6317666032) 0.0 mg/dL 0-0.3 T PROTEIN (test code = 4484164558) 6.9 g/dL 6.3-8.2 ALBUMIN (test code = 2972814612) 4.1 g/dL 3.5-5 ALK PHOS (test code = 3049559794) 69 U/L 34-122 ALTv (test code = 1742-6) 11 U/L 5-35 AST(SGOT) (test code = 1844806460) 19 U/L 13-40 Lab Interpretation (test code = Normal 20583-5) [facility] HospitalLipase [id number] 19:31:00 Test Item Value Reference Range Interpretation Comments LIPASE (test code = 5941486263) 42 U/L 0-220 Lab Interpretation (test code = Normal 14949-1) [facility] HospitalCOVID-19 (ID NOW RAPID TESTING)2020-11-14 19:31:00 Test Item Value Reference Range Interpretation Comments SARS-CoV-2 Rapid ID NOW Not Detected Not Detected (test code = 81647-2) KANU (test code = KANU) ID NOW COVID-19 Assay is an isothermal nucleic acid amplification test intended for the qualitative detection of nucleic acid from SARS-CoV-2 viral RNA in nasopharyngeal ([place] LINER) specimens. It is used under Emergency Use [...] indicated. Lab Interpretation Normal (test code = 93738-7) [facility] with [id number] 19:16:00 Test Item Value Reference Range Interpretation Comments WBC (test code = See_Comment H [Automated 5071-2) message] The sy stem which generated this [...] RDW-SD (test code = 41.3 fL 39-49.9 92559-7) RDW-CV (test code = 14.1 % 12-15.5 788-0) PLT (test code = See_Comment [Automated 777-3) message] The sy stem which generated this result transmitted reference range : 166 - 358 10*3/ ?L. The reference r dayana was not used to interpret this result as normal/abnormal . MPV (test code = 10.1 fL 9.5-12.9 79349-2) NRBC/100 WBC (test See_Comment [Automat ed code = 3952210394) message] The system which generated this result transmitted reference range : 0.0 - 10.0 /100 WBCs. The refer ence range was not u sed to interpret th is result as normal/abnormal . NRBC x10^3 (test code <0.01 See_Comment [Auto mated = 9345519148) message] The s ystem which generated this result transmitted reference range : 10*3/?L. The reference range was not used to interpret this result as normal/abnormal . GRAN MAT (NEUT) % 73.2 % (test code = 770-8) IMM GRAN % (test code 0.70 % = 1820198654) LYMPH % (test code = 18.1 % 736-9) MONO % (test code = 6.6 % 5905-5) EOS % (test code = 1.1 % 713-8) BASO % (test code = 0.3 % 706-2) GRAN MAT x10^3(ANC) 8.41 10*3/uL 1.88-7.09 H (test code = 1689553201) IMM GRAN x10^3 (test 0.08 10*3/uL 0-0.06 H code = 5288254283) LYMPH x10^3 (test code 2.08 10*3/uL 1.32-3.29 = 731-0) MONO x10^3 (test code 0.76 10*3/uL 0.33-0.92 = 742-7) EOS x10^3 (test code = 0.13 10*3/uL 0.03-0.39 711-2) BASO x10^3 (test code 0.04 10*3/uL 0.01-0.07 = 704-7) Lab Interpretation Abnormal (test code = 75786-9) [facility] HospitalDEXA AXIAL (HIP AND SPINE)2020-08-25 20:15:51 HISTORY: [...] for each 1.5 SD below the mean. [facility], Radiant ResultsInft User - 08/25/2020 2:16 [...] doubles for each 1.5 SD below the mean.[facility] HospitalXR HIPS 2 VW BILATERAL 2020-08-25 19:21:09HISTORY: [...] dislocation in right hip or left hipjoint. [facility], Radiant Results Inft User - 08/25/2020 1:22 [...] or dislocation in right hip or left hipjoint.[facility] HospitalCOVID-19 (ID NOW RAPID TESTING)2020-06-11 20:18:00 Test Item Value Reference Range Interpretation Comments SARS-CoV-2 Rapid ID NOW Not Detected Not Detected (test code = 98900-8) KANU (test code = KANU) ID NOW COVID-19 Assay is an isothermal nucleic acid amplification test intended for the qualitative detection of nucleic acid from SARS-CoV-2 viral RNA in nasopharyngeal ([place]) specimens. It is used under Emergency Use [...] indicated. Lab Interpretation Normal (test code = 49010-9) [facility] HospitalCOVID-19 (ID NOW RAPID TESTING)2020-06-03 22:06:00 Test Item Value Reference Range Interpretation Comments SARS-CoV-2 Rapid ID NOW Not Detected Not Detected (test code = 53113-7) KANU (test code = KANU) ID NOW COVID-19 Assay is an isothermal nucleic acid amplification test intended for the qualitative detection of nucleic acid from SARS-CoV-2 viral RNA in nasopharyngeal ([place]) specimens. It is used under Emergency Use [...] indicated. Lab Interpretation Normal (test code = 06944-5) [facility] HospitalTroponin [id number] 21:37:00 Test Item Value Reference Range Interpretation Comments TROPONIN I (test 0.002 ng/mL See_Comment [Automated code = 1448797151) message] The system which generated this result [...] ? Lab Interpretation Normal (test code = 12491-7) [facility] HospitalN-TERMINAL [id number] 21:34:00 Test Item Value Reference Range Interpretation Comments NT-proBNP (test code 62 pg/mL See_Comment [Autom ated = 3328756118) message] The system which generated this result transmitted reference range : <=450. The reference range was not used to interpret this result as normal/abnormal . KANU (test code = KANU) Biotin has been reported to cause a negative bias, interpret results relative to patient's use of biotin. Lab Interpretation Normal (test code = 81088-5) [facility] HospitalProthrombin Time (PT) / [id number] 21:30:00 Test Item Value Reference Range Interpretation [...] tions. Lab Interpretation (test Normal code = 23813-9) [facility] HospitalCOMP. METABOLIC PANEL (91389)2020-06-03 21:25:00 Test Item Value Reference Range Interpretation Comments NA (test code = 139 mmol/L 135-145 2398507006) K (test code = 4.1 mmol/L 3.5-5 9942218164) CL (test code = 101 mmol/L 98-108 6257309051) CO2 TOTAL (test code = 24 mmol/L 23-31 8807711530) AGAP (test code = 2-16 7767043409) BUN (test code = 22 mg/dL 7-23 4197884668) GLUCOSE (test code = 118 mg/dL 70-110 H 7523000326) CREATININE (test code = 1.22 mg/dL 0.5-1.04 H 2196711042) TOTAL BILI (test code = 0.4 mg/dL 0.1-1.6 8656166887) CALCIUM (test code = 10.2 mg/dL 8.6-10.6 3701461170) T PROTEIN (test code = 7.7 g/dL 6.3-8.2 3729329701) ALBUMIN (test code = 4.5 g/dL 3.5-5 5016497138) ALK PHOS (test code = 61 U/L 34-122 0775972259) ALTv (test code = 23 U/L 5-35 1742-6) AST(SGOT) (test code = 27 U/L 13-40 3385076093) eGFR Calculation mL/min/1.73m2 (Non-) (test code = 9753416692) eGFR Calculation mL/min/1.73m2 () (test code = 0194224674) KANU (test code = KANU) Association of [...] tests). Lab Interpretation Abnormal (test code = 09598-9) [facility] HospitalXR CHEST 1 VW [id number] 21:16:49 Mild cardiomegaly. Short sliding hiatal hernia. No detectable radiographic findings to suggest COVID-19 pneumonia. Disclaimer: Generally, the findings on chest imaging in COVID-19 are notspecific, and overlap with other infections, including influenza, H1N1,SARS and MERS.According to the Centers forDisease Control (CDC) and recent statement ofthe [employer], viral testing remains the [...] Disease Control (CDC) and recent statement ofthe [employer], viral testing remains the only specificmethod of diagnosis. Confirmation with the viral test is required, even ifradiologic findings are suggestive of COVID-[address]. Preliminary Report Dictated by Resident: Saud Chatterjee MD., have reviewed this study and agree with theabove report.[facility] with [id number] 21:09:00 Test Item Value Reference Range Interpretation Comments WBC (test code = See_Comment [Automated message] 6690-2) The system [employer] generated this result transmitted ref erence range: 4.30 - 1 1.10 10*3/?L. The re ference range was not u sed to interpret this result as normal/abnor mal. RBC (test code = See_Comment [Automated message] 029-8) The system [employer] generated this result transmitted ref erence range: [...] RDW-SD (test code 41.1 fL 39-49.9 = 51472-1) RDW-CV (test code 13.9 % 12-15.5 = 788-0) PLT (test code = See_Comment [Automated message] 777-3) The system [employer] generated this result transmitted ref erence range: 166 - 35 8 10*3/?L. The re ference range was not u sed to interpret this result as normal/abnor mal. MPV (test code = 10.3 fL 9.5-12.9 78900-1) NRBC/100 WBC (test See_Comment [Automat ed message] code = 1648113275) The syste m which generated this result transmitted ref erence range: 0.0 - 10 .0 /100 WBCs. The refer ence range was not u sed to interpret this result as normal/abnor mal. NRBC x10^3 (test <0.01 See_Comment [Automated message] code = 1078708432) The syste m which generated this result transmitted ref erence range: 10*3/?L. The reference range was not used to interpr et this result as normal/abnormal . GRAN MAT (NEUT) % 52.1 % (test code = 770-8) IMM GRAN % (test 0.40 % code = 1792328617) LYMPH % (test code 37.9 % = 736-9) MONO % (test code 6.8 % = 5905-5) EOS % (test code = 2.4 % 713-8) BASO % (test code 0.4 % = 706-2) GRAN MAT 3.66 10*3/uL 1.88-7.09 x10^3(ANC) (test code = 6072103650) IMM GRAN x10^3 0.03 10*3/uL 0-0.06 (test code = 5949549618) LYMPH x10^3 (test 2.67 10*3/uL 1.32-3.29 code = 731-0) MONO x10^3 (test 0.48 10*3/uL 0.33-0.92 code = 742-7) EOS x10^3 (test 0.17 10*3/uL 0.03-0.39 code = 711-2) BASO x10^3 (test 0.03 10*3/uL 0.01-0.07 code = 704-7) [facility] GLUCOSE (AUTOMATED)2019-12-09 21:03:00 Test Item Value Reference Range Interpretation Comments POCT GLU (test code = 7915085065) 184 mg/dL 70-110 H Lab Interpretation (test code = Abnormal 22820-0) [facility] GLUCOSE (AUTOMATED)2019-12-09 16:38:00 Test Item Value Reference Range Interpretation Comments POCT GLU (test code = 3676612349) 157 mg/dL 70-110 H Lab Interpretation (test code = Abnormal 31468-3) [facility] ONLY CORONAVIRUS COVID-19 PCR GNL 2019-12-09 15:52:00 Test Item Value Reference Range Interpretation Comments Coronavirus COVID-19 Not Detected Not Detected (test code = 3982765636) KANU (test code = KANU) Not Detected: A negative result does not preclude COVID-19 infection and should not be used as the sole basis for treatment or other patient management decisions. Negative results must be combined with clinical observations, patient history, and epidemiological information. Presumptive Positive: Specimen will be sent to [facility] for confirmation testing. Inconclusive: Specimen will be sent to [facility] for additional testing. Invalid: Please collect a new specimen for repeat patient testing. Disclaimer:This test was developed and its performance characteristics determined by [facility]. It has not been cleared [...] Presumptive Positive: Specimen will be sent to [facility] for confirmation testing. Inconclusive: Specimen will be sent to [facility] for additional testing. Invalid: Please collect a new specimen for repeat patient testing. Disclaimer:This test was developed and its performance characteristics determined by [facility]. It has not been cleared [...] testing. Lab Interpretation Normal (test code = 94258-1) [facility] HospitalPO[facility] (AUTOMATED)2019-12-09 12:32:00 Test Item Value Reference Range Interpretation Comments POCT GLU (test code = 1747494111) 157 mg/dL 70-110 H Lab Interpretation (test code = Abnormal 63728-3) [facility] HospitalTHYROID STIMULATING [id number] 12:24:00 Test Item Value Reference Range Interpretation Comments TSH (test code = See_Comment H [Automated message] 4894058470) The system [employer] generated this result transmitted ref erence range: 0.45 - 4 .70 mIU/L. The refe rence range was not u sed to interpret this result as normal/abnor mal. Lab Interpretation (test Abnormal code = 68868-3) [facility] HospitalaPT (for use with Heparin Practice Guideline). Note: [...] . KANU (test code = KANU) The [facility] patient population mean normal value for aPTT is 30 seconds. Lab Interpretation Abnormal (test code = 54194-4) [facility] Metabolic Panel (NA, K, CL, CO2, GLUCOSE, BUN, CREATININE, CA)2019-12-09 11:53:00 Test Item Value Reference Range Interpretation Comments NA (test code = 136 mmol/L 135-145 5729991386) K (test code = 4.0 mmol/L 3.5-5 8659021178) CL (test code = 100 mmol/L 98-108 4381487322) CO2 TOTAL (test code = 22 mmol/L 23-31 L 4798188159) AGAP (test code = 2-16 6447807629) BUN (test code = 15 mg/dL 7-23 0719997579) GLUCOSE (test code = 155 mg/dL 70-110 H 0671737059) CREATININE (test code = 1.23 mg/dL 0.5-1.04 H 4558730495) CALCIUM (test code = 9.8 mg/dL 8.6-10.6 8856705988) eGFR Calculation mL/min/1.73m2 (Non-) (test code = 1970803971) eGFR Calculation mL/min/1.73m2 () (test code = 3125117475) KANU (test code = KANU) Association of [...] tests). Lab Interpretation Abnormal (test code = 60978-8) [facility] WITH [id number] 11:27:00 Test Item Value Reference Range Interpretation Comments WBC (test code = See_Comment [Automated 0777-2) message] The sy stem which generated this result transmitted reference range : 4.30 - 11.10 10*3/?L. The reference range was not used to interpret this result as normal/abnormal . RBC (test code = See_Comment H [Automated 489-8) message] The sy stem which generated this [...] RDW-SD (test code = 42.8 fL 39-49.9 55773-3) RDW-CV (test code = 14.6 % 12-15.5 788-0) PLT (test code = See_Comment [Automated 777-3) message] The sy stem which generated this result transmitted reference range : 166 - 358 10*3/ ?L. The reference r dayana was not used to interpret this result as normal/abnormal . MPV (test code = 10.2 fL 9.5-12.9 21057-0) NRBC/100 WBC (test See_Comment [Automat ed code = 2873002730) message] The system which generated this result transmitted reference range : 0.0 - 10.0 /100 WBCs. The refer ence range was not u sed to interpret th is result as normal/abnormal . NRBC x10^3 (test code <0.01 See_Comment [Auto mated = 7316865400) message] The s ystem which generated this result transmitted reference range : 10*3/?L. The reference range was not used to interpret this result as normal/abnormal . GRAN MAT (NEUT) % 51.0 % (test code = 770-8) IMM GRAN % (test code 0.50 % = 4170982471) LYMPH % (test code = 36.8 % 736-9) MONO % (test code = 8.2 % 5905-5) EOS % (test code = 3.1 % 713-8) BASO % (test code = 0.4 % 706-2) GRAN MAT x10^3(ANC) 4.10 10*3/uL 1.88-7.09 (test code = 3255445656) IMM GRAN x10^3 (test 0.04 10*3/uL 0-0.06 code = 5332401426) LYMPH x10^3 (test code 2.96 10*3/uL 1.32-3.29 = 731-0) MONO x10^3 (test code 0.66 10*3/uL 0.33-0.92 = 742-7) EOS x10^3 (test code = 0.25 10*3/uL 0.03-0.39 711-2) BASO x10^3 (test code 0.03 10*3/uL 0.01-0.07 = 704-7) Lab Interpretation Abnormal (test code = 10407-9) [facility] GLUCOSE (AUTOMATED)2019-12-09 00:28:00 Test Item Value Reference Range Interpretation Comments POCT GLU (test code = 5472446910) 208 mg/dL 70-110 H Lab Interpretation (test code = Abnormal 47492-2) [facility] HospitalURINE [id number] 21:28:00 Test Item Value Reference Range Interpretation Comments URINE CULTURE (test No aerobic organisms code = 630-4) isolated [facility] GLUCOSE (AUTOMATED)2019-12-08 21:15:00 Test Item Value Reference Range Interpretation Comments POCT GLU (test code = 4090506509) 157 mg/dL 70-110 H Lab Interpretation (test code = Abnormal 25294-0) [facility]aPTT2020-03-23 20:10:00 Test Item Value Reference Range Interpretation Comments APTT Patient (test See_Comment H [Automat ed code = 3173-2) message] The system which generated this result transmitted reference range : 23 - 38 Seconds . The reference range was not used to interpr et this result as normal/abnormal . KANU (test code = KANU) The [facility] patient population mean normal value for aPTT is 30 seconds. Lab Interpretation Abnormal (test code = 82250-9) [facility] GLUCOSE (AUTOMATED)2019-12-08 16:46:00 Test Item Value Reference Range Interpretation Comments POCT GLU (test code = 0471448260) 172 mg/dL 70-110 H Lab Interpretation (test code = Abnormal 25813-1) [facility] GLUCOSE (AUTOMATED)2019-12-08 12:20:00 Test Item Value Reference Range Interpretation Comments POCT GLU (test code = 9872818170) 159 mg/dL 70-110 H Lab Interpretation (test code = Abnormal 61262-2) [facility] (for use with Heparin Practice Guideline). Note: [...] . KANU (test code = KANU) The [facility] patient population mean normal value for aPTT is 30 seconds. Lab Interpretation Abnormal (test code = 51666-7) [facility] WITH [id number] 07:05:00 Test Item Value Reference Range Interpretation [...] RDW-SD (test code = 41.9 fL 39-49.9 35303-2) RDW-CV (test code = 14.7 % 12-15.5 788-0) PLT (test code = See_Comment [Automated 777-3) message] The sy stem which generated this result transmitted reference range : 166 - 358 10*3/ ?L. The reference r dayana was not used to interpret this result as normal/abnormal . MPV (test code = 11.1 fL 9.5-12.9 70694-9) NRBC/100 WBC (test See_Comment [Automat ed code = 6591780211) message] The system which generated this result transmitted reference range : 0.0 - 10.0 /100 WBCs. The refer ence range was not u sed to interpret th is result as normal/abnormal . NRBC x10^3 (test code <0.01 See_Comment [Auto mated = 8831845092) message] The s ystem which generated this result transmitted reference range : 10*3/?L. The reference range was not used to interpret this result as normal/abnormal . GRAN MAT (NEUT) % 61.6 % (test code = 770-8) IMM GRAN % (test code 0.40 % = 3531787154) LYMPH % (test code = 28.3 % 736-9) MONO % (test code = 8.8 % 5905-5) EOS % (test code = 0.7 % 713-8) BASO % (test code = 0.2 % 706-2) GRAN MAT x10^3(ANC) 6.19 10*3/uL 1.88-7.09 (test code = 8096318823) IMM GRAN x10^3 (test 0.04 10*3/uL 0-0.06 code = 4563139140) LYMPH x10^3 (test code 2.85 10*3/uL 1.32-3.29 = 731-0) MONO x10^3 (test code 0.89 10*3/uL 0.33-0.92 = 742-7) EOS x10^3 (test code = 0.07 10*3/uL 0.03-0.39 711-2) BASO x10^3 (test code <0.03 0.01-0.07 = 704-7) Lab Interpretation Abnormal (test code = 24684-9) [facility] GLUCOSE (AUTOMATED)2019-12-08 01:01:00 Test Item Value Reference Range Interpretation Comments POCT GLU (test code = 150 mg/dL 70-110 H Notifi ed Provider 7347440859) Lab Interpretation (test Abnormal code = 81652-5) [facility] with [facility] Guid[facility] Note: [...] . KANU (test code = KANU) The [facility] patient population mean normal value for aPTT is 30 seconds. Lab Interpretation Abnormal (test code = 28697-1) [facility] GLUCOSE (AUTOMATED)2019-12-07 21:50:00 Test Item Value Reference Range Interpretation Comments POCT GLU (test code = 9765770448) 152 mg/dL 70-110 H Lab Interpretation (test code = Abnormal 00930-9) [facility] GLUCOSE (AUTOMATED)2019-12-07 16:50:00 Test Item Value Reference Range Interpretation Comments POCT GLU (test code = 5723468088) 145 mg/dL 70-110 H Lab Interpretation (test code = Abnormal 39369-4) [facility]1C[facility]2019-12-07 14:03:00 Test Item Value [...] Indicated Lab Interpretation Abnormal (test code = 96045-5) [facility] GLUCOSE (AUTOMATED)2019-12-07 13:38:00 Test Item Value Reference Range Interpretation Comments POCT GLU (test code = 3418210614) 134 mg/dL 70-110 H Lab Interpretation (test code = Abnormal 25038-3) [facility] use with [facility]arin Practice Guideline). [...] . KANU (test code = KANU) The [facility] patient population mean normal value for aPTT is 30 seconds. Lab Interpretation Abnormal (test code = 50408-7) [facility] CHEST PULMONARY [id number] 04:05:36 Right upper lobe segmental pulmonary emboli. [...] reviewed this study and agree with theabove report.[facility] HospitalProthrombin [facility] (PT) / INR 2019-12-07 04:05:00 [...] tions. Lab Interpretation (test Normal code = 07166-9) [facility] 04:04:00 Test Item Value Reference Range Interpretation Comments APTT Patient (test See_Comment [Automat ed code = 3173-2) message] The system which generated this result transmitted reference range : 23 - 38 Seconds . The reference range was not used to interpr et this result as normal/abnormal . KANU (test code = KANU) The [facility] patient population mean normal value for aPTT is 30 seconds. Lab Interpretation Normal (test code = 50607-1) [facility]inalysis[facility] 03:34:00 Test Item Value Reference Range Interpretation Comments APPEARANCE (test code = Hazy Clear A 2590127050) COLOR (test code = Yellow Yellow 1602554323) PH (test code = 4.8-8.0 2106714867) SP GRAVITY (test code = 1.003-1.030 4269235020) GLU U QUAL (test code = Normal Normal 7616432995) BLOOD (test code = Negative Negative INTERFERE NCE FROM 4783582708) ASCORBIC ACID M AY CAUSE FALSE NEG ATIVE RESULT KETONES (test code = 5 mg/dL Negative A 9004784863) PROTEIN (test code = 30 mg/dL Negative A 2887-8) UROBILIN (test code = Normal Normal 6542083561) BILIRUBIN (test code = Negative Negative 4374147156) NITRITE (test code = Negative Negative 9821566422) LEUK ULISES (test code = 250/uL Negative A 4498407243) RBC/HPF (test code = See_Comment H [Autom ated message] 9485155723) The system [employer] generated this result transmitted ref erence range: 0 - 3 HP F. The reference range was not used to int erpret this result as normal/abnormal . WBC/HPF (test code = See_Comment H [Autom ated message] 2108317647) The system [employer] generated this result transmitted ref erence range: 0 - 5 HP F. The reference range was not used to int erpret this result as normal/abnormal . BACTERIA (test code = Few Negative A 0536331304) MUCOUS (test code = Slight Negative LPF A 3265933931) SQ EPITH (test code = HPF 2948516758) HYAL CAST (test code = See_Comment H [Aut omated message] 3096795551) The system [employer] generated this result transmitted ref erence range: <=2 LPF. The reference range was not used to int erpret this result as normal/abnormal . TRANS EPI (test code = See_Comment H [Aut omated message] 9464214098) The system [employer] generated this result transmitted ref erence range: <=1 HPF. The reference range was not used to int erpret this result as normal/abnormal . GLORIA EPITH (test code = See_Comment H [Aut omated message] 1888782591) The system [employer] generated this result transmitted ref erence range: <=1 HPF. The reference range was not used to int erpret this result as normal/abnormal . Lab Interpretation (test Abnormal code = 10658-1) [facility] 2 [id number] 02:52:25 No acute cardiopulmonary abnormality. Preliminary Report [...] abnormality. Preliminary Report Dictated by Resident: Terrance Bergman MD., have reviewed this study and agree with theabove report.[id number] 02:31[facility]00 Test Item Value Reference Range Interpretation Comments TROPONIN I (test 0.008 ng/mL See_Comment [Automated code = 2597010718) message] The system which generated this result [...] ? Lab Interpretation Normal (test code = 47961-9) [facility] (NA, K, CL, CO2, GLUCOSE, BUN, CREATININE, CA)2019-12-07 02:19:00 Test Item Value Reference Range Interpretation Comments NA (test code = 141 mmol/L 135-145 7477806823) K (test code = 4.0 mmol/L 3.5-5 0464614528) CL (test code = 102 mmol/L 98-108 0700820337) CO2 TOTAL (test code = 22 mmol/L 23-31 L 6706525885) AGAP (test code = 2-16 H 2714430242) BUN (test code = 17 mg/dL 7-23 3395055658) GLUCOSE (test code = 109 mg/dL 70-110 0691098137) CREATININE (test code = 1.18 mg/dL 0.5-1.04 H 4938580630) CALCIUM (test code = 10.2 mg/dL 8.6-10.6 0789630874) eGFR Calculation mL/min/1.73m2 (Non-) (test code = 4405830826) eGFR Calculation mL/min/1.73m2 () (test code = 3603571586) KANU (test code = KANU) Association of [...] tests). Lab Interpretation Abnormal (test code = 58008-8) [facility] (ALB, T.PRO, BILI T, BU/BC, ALT, AST, ALK PHOS)2019-12-07 02:19:00 Test Item Value Reference Range Interpretation Comments TOTAL BILI (test code = 4959330807) 0.4 mg/dL 0.1-1.1 BILI UNCON (test code = 2223890456) 0.3 mg/dL 0.1-1.1 BILI CONJ (test code = 5256167741) 0.0 mg/dL 0-0.3 T PROTEIN (test code = 8635405630) 8.2 g/dL 6.3-8.2 ALBUMIN (test code = 0534436806) 4.9 g/dL 3.5-5 ALK PHOS (test code = 1773826046) 70 U/L 34-122 ALTv (test code = 1742-6) 27 U/L 5-35 AST(SGOT) (test code = 6845963791) 35 U/L 13-40 Lab Interpretation (test code = Normal 50141-0) [facility] HospitalLipase [id number] 02:19:00 Test Item Value Reference Range Interpretation Comments LIPASE (test code = 7388574390) 95 U/L 0-220 Lab Interpretation (test code = Normal 08903-2) [facility] HospitalAD,CLC OR LCC ONLY - INFLUENZA A & B DIRECT [id number] 02:17:00 Test Item Value Reference Range Interpretation Comments Influenza A (test code = 63292-6) Negative Negative Influenza B (test code = 20989-0) Negative Negative Lab Interpretation (test code = Normal 00397-9) [facility] WITH [id number] 01:58:00 Test Item Value Reference Range Interpretation Comments WBC (test code = See_Comment [Automated message] 2690-2) The system [employer] generated this result transmitted ref erence range: 4.30 - 1 1.10 10*3/?L. The re ference range was not u sed to interpret this result as normal/abnor mal. RBC (test code = See_Comment [Automated message] 699-8) The system [employer] generated this result transmitted ref erence range: [...] RDW-SD (test code 41.4 fL 39-49.9 = 54471-6) RDW-CV (test code 13.9 % 12-15.5 = 788-0) PLT (test code = See_Comment [Automated message] 777-3) The system whic h generated this result transmitted ref erence range: 166 - 35 8 10*3/?L. The re ference range was not u sed to interpret this result as normal/abnor mal. MPV (test code = 10.1 fL 9.5-12.9 98689-2) NRBC/100 WBC (test See_Comment [Automat ed message] code = 9900499740) The syste m which generated this result transmitted ref erence range: 0.0 - 10 .0 /100 WBCs. The refer ence range was not u sed to interpret this result as normal/abnor mal. NRBC x10^3 (test <0.01 See_Comment [Automated message] code = 5903315261) The syste m which generated this result transmitted ref erence range: 10*3/?L. The reference range was not used to interpr et this result as normal/abnormal . GRAN MAT (NEUT) % 53.5 % (test code = 770-8) IMM GRAN % (test 0.40 % code = 3229136644) LYMPH % (test code 35.7 % = 736-9) MONO % (test code 7.5 % = 5905-5) EOS % (test code = 2.6 % 713-8) BASO % (test code 0.3 % = 706-2) GRAN MAT 3.87 10*3/uL 1.88-7.09 x10^3(ANC) (test code = 5448555128) IMM GRAN x10^3 0.03 10*3/uL 0-0.06 (test code = 7715562155) LYMPH x10^3 (test 2.58 10*3/uL 1.32-3.29 code = 731-0) MONO x10^3 (test 0.54 10*3/uL 0.33-0.92 code = 742-7) EOS x10^3 (test 0.19 10*3/uL 0.03-0.39 code = 711-2) BASO x10^3 (test <0.03 0.01-0.07 code = 704-7) [facility] 2 [id number] 01:30:47 No acute cardiopulmonary abnormality. Preliminary Report [...] acute cardiopulmonary abnormality.Preliminary Report Dictated by Resident: Hitesh Najera MD., have reviewed this study and agree with the abovereport.[facility] ADC,CLC OR LCC ONLY - INFLUENZA A & B DIRECT [id number] 01:10:00 Test Item Value Reference Range Interpretation Comments Influenza A (test code = 66173-5) Negative Negative Influenza B (test code = 98876-8) Negative Negative Lab Interpretation (test code = Normal 18454-1) [facility] HospitalPO[facility]U [facility] AND B (MOLECULAR)2019-11-09 01:21:00 Test Item Value Reference Range Interpretation Comments POCT INFLUENZA A (test neg Negative - code = 3840) Negative POCT INFLUENZA B (test neg Negative - code = 3841) Negative KANU (test code = KANU) accurate development and interpretation of all internal controls Lab Interpretation Normal (test code = 15501-1) [facility] HospitalMICROALBUMIN [id number] 16:21:00 Test Item Value Reference Range Interpretation Comments CREAT U (test 230.5 mg/dL code = 9704394105) MICROALB U 23 ug/mL 0-45 (test code = 72046-9) MICROAL/CR See_Comment [Automated (test code = message] The [employer] system which generated this result transmitted reference range : 0 - 30 mg/g of creatinine. The reference range was not used to interpret this result as normal/abnormal . KANU (test code Normal: <30 mg/g = KANU) creatinineMicroalbuminur ia: 30 - 299 mg/g creatinineClinical albuminuria: > 300 mg/g creatinine [facility] HospitalMICROALBUMIN [id number] 16:21:00 Test Item Value Reference Range Interpretation Comments CREAT U (test 230.5 mg/dL code = 6434908808) MICROALB U 23 ug/mL 0-45 (test code = 61758-8) MICROAL/CR See_Comment [Automated (test code = message] The [employer]) system which generated this result transmitted reference range : 0 - 30 mg/g of creatinine. The reference range was not used to interpret this result as normal/abnormal . KANU (test code Normal: <30 mg/g = KANU) creatinineMicroalbuminur ia: 30 - 299 mg/g creatinineClinical albuminuria: > 300 mg/g creatinine [facility] HospitalTHYROID STIMULATING [id number] 19:20:00 Test Item Value Reference Range Interpretation Comments TSH (test code = See_Comment [Automated message] 9805498506) The system [employer] generated this result transmitted ref erence range: 0.45 - 4 .70 mIU/L. The refe rence range was not u sed to interpret this result as normal/abnor mal. Lab Interpretation (test Normal code = 51526-0) [facility] HospitalTHYROID STIMULATING [id number] 19:20:00 Test Item Value Reference Range Interpretation Comments TSH (test code = See_Comment [Automated message] 6383150418) The system [employer] generated this result transmitted ref erence range: 0.45 - 4 .70 mIU/L. The refe rence range was not u sed to interpret this result as normal/abnor mal. Lab Interpretation (test Normal code = 72585-2) [facility] HospitalLIPID PANEL (97409)(TOTAL CHOLESTEROL, TRIGLYCERIDES, HDL)2019-10-30 18:53:00 Test Item Value Reference Range Interpretation Comments CHOL (test code = 250 mg/dL 120-200 H 8945900927) HDL (test code = 46 mg/dL >50 L 5926735489) HDLC RATIO (test code = See_Comment H [Au tomated message] 8309194298) The system [employer] generated this result transmit cesar reference range : <=4.5. The refe rence range was not u sed to interpret th is result as normal/abnormal . TRIG (test code = 162 mg/dL 30-170 0504643342) LDL CHOL (test code = 172 mg/dL See_Comment H [Auto mated message] 50135-2) The system [employer] generated this result transmit cesar reference range : <=160. The refe rence range was not u sed to interpret th is result as normal/abnormal . VLDL (test code = 32 mg/dL 5-60 9664811563) Lab Interpretation (test Abnormal code = 86770-2) [facility] HospitalLIPID PANEL (63344)(TOTAL CHOLESTEROL, TRIGLYCERIDES, HDL)2019-10-30 18:53:00 Test Item Value Reference Range Interpretation Comments CHOL (test code = 250 mg/dL 120-200 H 6295366242) HDL (test code = 46 mg/dL >50 L 2992323692) HDLC RATIO (test code = See_Comment H [Au tomated message] 7264021853) The system [employer] generated this result transmit cesar reference range : <=4.5. The refe rence range was not u sed to interpret th is result as normal/abnormal . TRIG (test code = 162 mg/dL 30-170 8984100222) LDL CHOL (test code = 172 mg/dL See_Comment H [Auto mated message] 57199-5) The system [employer] generated this result transmit cesar reference range : <=160. The refe rence range was not u sed to interpret th is result as normal/abnormal . VLDL (test code = 32 mg/dL 5-60 6606515808) Lab Interpretation (test Abnormal code = 61819-5) [facility] HospitalCOMP. METABOLIC PANEL (99556)2019-10-30 18:52:00 Test Item Value Reference Range Interpretation Comments NA (test code = 140 mmol/L 135-145 7503792206) K (test code = 4.8 mmol/L 3.5-5 6696405271) CL (test code = 102 mmol/L 98-108 7510024965) CO2 TOTAL (test code = 28 mmol/L 23-31 0280314049) AGAP (test code = 2-16 9323087075) BUN (test code = 28 mg/dL 7-23 H 4938586558) GLUCOSE (test code = 99 mg/dL 70-110 2528850037) CREATININE (test code = 1.56 mg/dL 0.5-1.04 H 4021151110) TOTAL BILI (test code = 0.5 mg/dL 0.1-1.5 7659246438) CALCIUM (test code = 10.3 mg/dL 8.6-10.6 7411925925) T PROTEIN (test code = 7.1 g/dL 6.3-8.2 5609769872) ALBUMIN (test code = 4.5 g/dL 3.5-5 7616758929) ALK PHOS (test code = 57 U/L 34-122 9238090759) ALTv (test code = 19 U/L 5-35 1742-6) AST(SGOT) (test code = 23 U/L 13-40 6965378273) eGFR Calculation mL/min/1.73m2 (Non-) (test code = 0212247437) eGFR Calculation mL/min/1.73m2 () (test code = 5198163859) KANU (test code = KANU) Association of [...] tests). Lab Interpretation Abnormal (test code = 79809-7) [facility]. METABOLIC PANEL (88503)2019-10-30 18:52:00 Test Item Value Reference Range Interpretation Comments NA (test code = 140 mmol/L 135-145 3612381397) K (test code = 4.8 mmol/L 3.5-5 8767980501) CL (test code = 102 mmol/L 98-108 7219029034) CO2 TOTAL (test code = 28 mmol/L 23-31 0644300582) AGAP (test code = 2-16 1416582828) BUN (test code = 28 mg/dL 7-23 H 4372160282) GLUCOSE (test code = 99 mg/dL 70-110 0376927588) CREATININE (test code = 1.56 mg/dL 0.5-1.04 H 7896734398) TOTAL BILI (test code = 0.5 mg/dL 0.1-1.4 1139061311) CALCIUM (test code = 10.3 mg/dL 8.6-10.6 8234071151) T PROTEIN (test code = 7.1 g/dL 6.3-8.2 5227652488) ALBUMIN (test code = 4.5 g/dL 3.5-5 1399196846) ALK PHOS (test code = 57 U/L 34-122 9933046281) ALTv (test code = 19 U/L 5-35 1742-6) AST(SGOT) (test code = 23 U/L 13-40 1562443435) eGFR Calculation mL/min/1.73m2 (Non-) (test code = 2941795287) eGFR Calculation mL/min/1.73m2 () (test code = 2479651237) KANU (test code = KANU) Association of [...] tests). Lab Interpretation Abnormal (test code = 45840-8) [facility] HospitalGLYCOSYLATED HEMOGLOBIN (A1C)2019-10-30 18:34:00 Test Item Value [...] Indicated Lab Interpretation Abnormal (test code = 39398-6) [facility] HospitalGLYCOSYLATED HEMOGLOBIN (A1C)2019-10-30 18:34:00 Test Item Value [...] Indicated Lab Interpretation Abnormal (test code = 44485-0) [facility] WITH [id number] 18:08:00 Test Item Value Reference Range Interpretation Comments WBC (test code = See_Comment [Automated message] 8890-2) The system [employer] generated this result transmitted ref erence range: 4.30 - 1 1.10 10*3/?L. The re ference range was not u sed to interpret this result as normal/abnor mal. RBC (test code = See_Comment [Automated message] 629-8) The system [employer] generated this result transmitted ref erence range: [...] RDW-SD (test code 41.0 fL 39-49.9 = 93612-7) RDW-CV (test code 13.3 % 12-15.5 = 788-0) PLT (test code = See_Comment [Automated message] 437-3) The system [employer] generated this result transmitted ref erence range: 166 - 35 8 10*3/?L. The re ference range was not u sed to interpret this result as normal/abnor mal. MPV (test code = 10.5 fL 9.5-12.9 64520-1) NRBC/100 WBC (test See_Comment [Automat ed message] code = 3029237478) The syste m which generated this result transmitted ref erence range: 0.0 - 10 .0 /100 WBCs. The refer ence range was not u sed to interpret this result as normal/abnor mal. NRBC x10^3 (test <0.01 See_Comment [Automated message] code = 9528753680) The syste m which generated this result transmitted ref erence range: 10*3/?L. The reference range was not used to interpr et this result as normal/abnormal . GRAN MAT (NEUT) % 53.9 % (test code = 770-8) IMM GRAN % (test 0.50 % code = 1241867243) LYMPH % (test code 35.7 % = 736-9) MONO % (test code 6.5 % = 5905-5) EOS % (test code = 2.9 % 713-8) BASO % (test code 0.5 % = 706-2) GRAN MAT 3.58 10*3/uL 1.88-7.09 x10^3(ANC) (test code = 2952573589) IMM GRAN x10^3 0.03 10*3/uL 0-0.06 (test code = 4272026840) LYMPH x10^3 (test 2.37 10*3/uL 1.32-3.29 code = 731-0) MONO x10^3 (test 0.43 10*3/uL 0.33-0.92 code = 742-7) EOS x10^3 (test 0.19 10*3/uL 0.03-0.39 code = 711-2) BASO x10^3 (test 0.03 10*3/uL 0.01-0.07 code = 704-7) [facility] WITH [id number] 18:08:00 Test Item Value Reference Range Interpretation Comments WBC (test code = See_Comment [Automated message] 6690-2) The system [employer] h generated this result transmitted ref erence range: 4.30 - 1 1.10 10*3/?L. The re ference range was not u sed to interpret this result as normal/abnor mal. RBC (test code = See_Comment [Automated message] 079-8) The system [employer] generated this result transmitted ref erence range: [...] RDW-SD (test code 41.0 fL 39-49.9 = 14758-3) RDW-CV (test code 13.3 % 12-15.5 = 788-0) PLT (test code = See_Comment [Automated message] 777-3) The system [employer] generated this result transmitted ref erence range: 166 - 35 8 10*3/?L. The re ference range was not u sed to interpret this result as normal/abnor mal. MPV (test code = 10.5 fL 9.5-12.9 75093-0) NRBC/100 WBC (test See_Comment [Automat ed message] code = 9984434619) The syste [employer] which generated this result transmitted ref erence range: 0.0 - 10 .0 /100 WBCs. The refer ence range was not u sed to interpret this result as normal/abnor mal. NRBC x10^3 (test <0.01 See_Comment [Automated message] code = 5705912265) The syste m which generated this result transmitted ref erence range: 10*3/?L. The reference range was not used to interpr et this result as normal/abnormal . GRAN MAT (NEUT) % 53.9 % (test code = 770-8) IMM GRAN % (test 0.50 % code = 4795721685) LYMPH % (test code 35.7 % = 736-9) MONO % (test code 6.5 % = 5905-5) EOS % (test code = 2.9 % 713-8) BASO % (test code 0.5 % = 706-2) GRAN MAT 3.58 10*3/uL 1.88-7.09 x10^3(ANC) (test code = 6526065477) IMM GRAN x10^3 0.03 10*3/uL 0-0.06 (test code = 7133917192) LYMPH x10^3 (test 2.37 10*3/uL 1.32-3.29 code = 731-0) MONO x10^3 (test 0.43 10*3/uL 0.33-0.92 code = 742-7) EOS x10^3 (test 0.19 10*3/uL 0.03-0.39 code = 711-2) BASO x10^3 (test 0.03 10*3/uL 0.01-0.07 code = 704-7) [facility] [id number] 01:01:19 No acute osseous abnormality. Multilevel degenerative [...] reviewed this study and agree with the abovereport.[facility] L[facility] 3 [id number] 01:01:19 No acute osseous abnormality. Multilevel degenerative [...] are noted in the gluteal soft tissues. [facility], Radiant Results Inft User - 06/02/2019 8:01 [...] reviewed this study and agree with the abovereport.[facility]"
[2021-12-15 12:59] LABS: Absolute Lymphocytes (CBC) 2.8 K/uL (0.7-4.9); Hematocrit 36.6 % (36.0-45.0); Lymphocytes % 25.4 % (15.3-44.8); MPV 8.2 fL (7.6-11.3); RBC Red Blood Cell Count 4.83 M/uL (3.86-4.86)
--- NOTE | 2021-12-15 13:16 | ER ---
Nurse's Notes [facility] Name: Melanie Lyons Age: 81 yrs Sex: Female : 1940 Arrival Date: 12/15/2021 Time: 11:47 Bed 8 Private MD: Diagnosis: Acute kidney failure, unspecified;Acute pulmonary edema;Unspecified combined systolic (congestive) and diastolic (congestive) heart failure Presentation: 12/15 11:57 Chief complaint: Patient states: they were sent from Dr. Holm office for further ap3 evaluation. Patients family member reports Dr. Rene informed them her lab work was abnormal and he wanted her to be seen in the ED. Patient states she has been having chest tightness and shortness of breath for approx three weeks now. Patient states she had cardiac stents placed three weeks ago. Coronavirus screen: At this time, the client does not indicate any symptoms associated with coronavirus-19. Ebola Screen: No symptoms or risks identified at this time. Initial Sepsis Screen: Does the patient meet any 2 criteria? No. Patient's initial sepsis screen is negative. Does the patient have a suspected source of infection? No. Patient's initial sepsis screen is negative. Risk Assessment: Do you want to hurt yourself or someone else? Patient reports no desire to harm self or others. Onset of symptoms was November 24, 2021. 11:57 Method Of Arrival: Wheelchair ap3 11:57 Acuity: VIRAL 3 ap3 Triage Assessment: 12:01 General: Appears in no apparent distress. Behavior is calm, cooperative, appropriate ap3 for age. Pain: Complains of pain in chest Pain does not radiate. Quality of pain is described as patient denies pain, but states she is having chest tightness. Neuro: Level of Consciousness is awake, alert, obeys commands, Oriented to person, place, time, situation, Appropriate for age. Cardiovascular: Patient's skin is warm and dry. Respiratory: Reports shortness of breath on exertion Airway is patent Respiratory effort is even, unlabored, Respiratory pattern is regular, symmetrical. Historical: - Allergies: 11:59 Lisinopril; cough; ap3 11:59 PENICILLINS; ap3 - Home Meds: 11:59 aspirin 81 mg Oral chew [Active]; Farxiga 5 mg Oral tab 1 tab once daily [Active]; ap3 levothyroxine oral [Active]; losartan 50 mg Oral tab [Active]; Metformin Oral [Active]; metoprolol tartrate 25 mg Oral tab 1 tab 2 times per day [Active]; Plavix 75 mg Oral tab 1 tab once daily [Active]; - PMHx: 11:59 Congestive heart failure; diabetes mellitus; Hypertensive disorder; Hypothyroidism; ap3 pulmonary edema; - PSHx: 11:59 Appendectomy; back; heart cath; ap3 - Immunization history:: Client reports having NOT received the Covid vaccine. Pneumococcal vaccine is up to date, Flu vaccine is not up to date. - Social history:: Smoking status: Patient denies any tobacco usage or history of. - Family history:: not pertinent. - Hospitalizations: : The patient was recently seen at [facility]. Screenin:02 Abuse screen: Denies threats or abuse. Nutritional screening: No deficits noted. ap3 Tuberculosis screening: No symptoms or risk factors identified. 12:29 Fall Risk None identified. ph Assessment: 12:27 General: Appears in no apparent distress. comfortable, well groomed, Behavior is ph cooperative, appropriate for age, Denies fever, feeling ill. Pain: Complains of pain in chest Pain began approx 3 weeks ago. Neuro: Level of Consciousness is awake, alert, obeys commands, Oriented to person, place, time, situation. Cardiovascular: Capillary refill < 3 seconds in bilateral fingers Patient's skin is warm and dry. Cardiovascular: Reports chest pain, shortness of breath. Respiratory: Reports shortness of breath at rest Airway is patent Respiratory effort is even, unlabored, Respiratory pattern is regular, symmetrical. GI: No signs and/or symptoms were reported involving the gastrointestinal system. Derm: Skin is intact, Skin is pink, warm \T\ dry. Musculoskeletal: Circulation, motion, and sensation intact. Range of motion: intact in all extremities. 14:00 Reassessment: Patient appears in no apparent distress at this time. Patient and/or ph family updated on plan of care and expected duration. Pain level reassessed. Patient is alert, oriented x 3, equal unlabored respirations, skin warm/dry/pink. 15:30 Reassessment: Patient appears in no apparent distress at this time. Patient and/or ph family updated on plan of care and expected duration. Pain level reassessed. Patient is alert, oriented x 3, equal unlabored respirations, skin warm/dry/pink. 16:49 Reassessment: Patient appears in no apparent distress at this time. Patient and/or ph family updated on plan of care and expected duration. Pain level reassessed. Patient is alert, oriented x 3, equal unlabored respirations, skin warm/dry/pink. Vital Signs: 11:57 BP 120 / 46; Pulse 58; Resp 17; Temp 97.7; Pulse Ox 98% ; Weight 80.29 kg; Height 4 ft. ap3 11 in. (149.86 cm); 12:29 BP 102 / 36; Pulse 52; Resp 20; ph 13:30 BP 110 / 37; Pulse 58; Resp 16; Pulse Ox 99% on R/A; ph 14:30 BP 111 / 54; Pulse 53; Resp 18; Pulse Ox 97% on R/A; ph 15:30 BP 119 / 51; Pulse 58; Resp 18; Pulse Ox 98% on R/A; ph 16:30 BP 115 / 46; Pulse 60; Resp 18; Pulse Ox 99% on R/A; ph 18:00 BP 112 / 52; Pulse 62; Resp 16; Pulse Ox 98% on R/A; ph 20:23 BP 110 / 48; Pulse 62; Resp 16; Pulse Ox 100% on R/A; st1 11:57 Body Mass Index 35.75 (80.29 kg, 149.86 cm) ap3 ED Course: 11:47 Patient arrived in ED. ds1 11:53 Benson Jordan MD is Attending Physician. rn 11:59 Triage completed. ap3 12:02 Arm band placed on right wrist. ap3 12:03 Patient maintains SpO2 saturation greater than 95% on room air. ap3 12:04 Zulma Solis, MIKI is Primary Nurse. ph 12:26 Missed attempt(s): 22 gauge in right wrist. Bleeding controlled, band aid applied, ph catheter tip intact. 12:28 Patient has correct armband on for positive identification. Bed in low position. Call ph light in reach. Side rails up X 1. Pulse ox on. NIBP on. Door closed. Noise minimized. 12:48 Initial lab(s) drawn, by in, sent to lab. Inserted saline lock: 22 gauge in right kj1 forearm, using aseptic technique. Blood collected. 13:02 EKG done, by flight technician. kj1 13:03 Placed in gown. kj1 13:11 XRAY Chest (1 view) In Process Unspecified. EDMS 13:15 Francesca Cespedes MD is Hospitalizing Provider. rn 16:52 No provider procedures requiring assistance completed. Patient admitted, IV remains in ph place. 16:55 Thorax Wo Con In Process Unspecified. EDMS 20:20 Attempted to call report. The charge nurse is unable to located the nurse to take st1 report. I will call back in 10 minutes. Administered Medications: No medications were administered Outcome: 13:15 Decision to Hospitalize by Provider. rn 20:34 Admitted to Med/surg accompanied by tech, via stretcher, room 211, with chart, Report st1 called to MIKI Georges . All questions and concerns addressed. 20:35 Condition: stable st1 20:35 Instructed on the need for admit, Demonstrated understanding of instructions. 20:48 Patient left the ED. as6 Signatures: Dispatcher [employer] EDKS LexLeigh ds1 Benson Jordan MD MD rn Hall, Patricia, RN RN Rika Mata RN RN Sara Breaux kj1 Gomez Reed RN RN as6 Isabel Tai, RN RN st1
--- NOTE | 2021-12-15 13:16 | EDPHYS ---
Physician Documentation [facility] Name: Melanie Lyons Age: 81 yrs Sex: Female : 1940 Arrival Date: 12/15/2021 Time: 11:47 Bed 8 Private MD: ED Physician Benson Jordan HPI: 12/15 12:56 This 81 yrs old Female presents to ER via Wheelchair with complaints of Chest rn Tightness, Shortness Of Breath. 13:09 The patient has shortness of breath with light activity. Onset: The symptoms/episode rn began/occurred 2 week(s) ago. Duration: The symptoms are intermittent. The patient's shortness of breath is aggravated by exertion, light activity, talking, walking. Associated signs and symptoms: Pertinent positives: chest pain, non-productive cough, Pertinent negatives: fever, hemoptysis. Severity of symptoms: At their worst the symptoms were moderate in the emergency department the symptoms are unchanged. The patient has experienced similar episodes in the past. The patient has been recently seen by a physician:. Sent in today by Dr. Rico, sent for acute kidney failure and SOB. No fever. NO trauma. States sob worsening since her stent placed a few weeks ago.. Historical: - Allergies: 11:59 Lisinopril; cough; ap3 11:59 PENICILLINS; ap3 - Home Meds: 11:59 aspirin 81 mg Oral chew [Active]; Farxiga 5 mg Oral tab 1 tab once daily [Active]; ap3 levothyroxine oral [Active]; losartan 50 mg Oral tab [Active]; Metformin Oral [Active]; metoprolol tartrate 25 mg Oral tab 1 tab 2 times per day [Active]; Plavix 75 mg Oral tab 1 tab once daily [Active]; - PMHx: 11:59 Congestive heart failure; diabetes mellitus; Hypertensive disorder; Hypothyroidism; ap3 pulmonary edema; - PSHx: 11:59 Appendectomy; back; heart cath; ap3 - Immunization history:: Client reports having NOT received the Covid vaccine. Pneumococcal vaccine is up to date, Flu vaccine is not up to date. - Social history:: Smoking status: Patient denies any tobacco usage or history of. - Family history:: not pertinent. - Hospitalizations: : The patient was recently seen at [facility]. ROS: 13:09 Constitutional: Negative for fever, chills, and weight loss, Eyes: Negative for injury, rn pain, redness, and discharge, Neck: Negative for injury, pain, and swelling, Cardiovascular: + swelling and chest pain Respiratory: + sob Abdomen/GI: Negative for abdominal pain, nausea, vomiting, diarrhea, and constipation, Back: Negative for injury and pain, : Negative for injury, bleeding, discharge, and swelling, MS/Extremity: Negative for injury and deformity, Skin: Negative for injury, rash, and discoloration, Neuro: + generalized weakness Exam: 13:09 Constitutional: This is a well developed, well nourished patient who is awake, alert rn Head/Face: Normocephalic, atraumatic. Eyes: Periorbital areas with no swelling, redness, or edema. ENT: dry MM Cardiovascular: Bradycardic, regular. No pulse deficits. Respiratory: Mild tachypnea, no retractions Abdomen/GI: soft, non-tender Skin: Warm, dry, no cyanosis MS/ Extremity: Pulses equal, no cyanosis. Neurovascular intact. Full, normal range of motion. Equal circumference. + bilateral lower ext edema. Neuro: Awake and alert, GCS 15 Vital Signs: 11:57 BP 120 / 46; Pulse 58; Resp 17; Temp 97.7; Pulse Ox 98% ; Weight 80.29 kg; Height 4 ft. ap3 11 in. (149.86 cm); 12:29 BP 102 / 36; Pulse 52; Resp 20; ph 13:30 BP 110 / 37; Pulse 58; Resp 16; Pulse Ox 99% on R/A; ph 14:30 BP 111 / 54; Pulse 53; Resp 18; Pulse Ox 97% on R/A; ph 15:30 BP 119 / 51; Pulse 58; Resp 18; Pulse Ox 98% on R/A; ph 16:30 BP 115 / 46; Pulse 60; Resp 18; Pulse Ox 99% on R/A; ph 18:00 BP 112 / 52; Pulse 62; Resp 16; Pulse Ox 98% on R/A; ph 20:23 BP 110 / 48; Pulse 62; Resp 16; Pulse Ox 100% on R/A; st1 11:57 Body Mass Index 35.75 (80.29 kg, 149.86 cm) ap3 MDM: 11:53 Patient medically screened. rn 13:14 Differential diagnosis: Anemia Anxiety Reaction CHF exacerbation, pneumonia, rn Pneumothorax pulmonary edema, Pulmonary Embolism Unstable Angina. Data reviewed: vital signs, nurses notes, lab test result(s), EKG, radiologic studies, and as a result, I will admit patient. Counseling: I had a detailed discussion with the patient and/or guardian regarding: the historical points, exam findings, and any diagnostic results supporting the discharge/admit diagnosis, lab results, radiology results, the need for further work-up and treatment in the hospital. Response to treatment: There is no appreciated change of the patient's symptoms at this time, and as a result, I will admit patient. Admission orders: after a detailed discussion of the patient's condition and case, the admit orders are written by me. 12/15 11:54 Order name: Basic Metabolic Panel; Complete Time: 13:29 12/15 11:54 Order name: CBC with Diff; Complete Time: 13:14 12/15 11:54 Order name: D-Dimer; Complete Time: 13:14 12/15 11:54 Order name: NT PRO-BNP; Complete Time: 13:29 rn 12/15 11:54 Order name: Troponin HS; Complete Time: 13:29 12/15 11:54 Order name: COVID-19/FLU A+B (Document "Date of Onset" if Symptomatic); Complete Time: rn 13:58 12/15 16:42 Order name: UR CREAT EDAL 12/15 16:42 Order name: UR SODIUM [facility] 12/15 16:42 Order name: CBC with Automated Diff [facility] 12/15 16:42 Order name: CBC with Automated Diff [facility] 12/15 16:42 Order name: Comprehensive Metabolic Panel [facility] 12/15 16:42 Order name: Comprehensive Metabolic Panel [facility] 12/15 16:42 Order name: Magnesium EDAL 12/15 16:42 Order name: Magnesium EDAL 12/15 11:54 Order name: XRAY Chest (1 view); Complete Time: 13:35 rn 12/15 11:54 Order name: EKG; Complete Time: 11:55 rn 12/15 11:54 Order name: Cardiac monitoring; Complete Time: 12:50 rn 12/15 16:42 Order name: Thorax Wo Con; Complete Time: 17:59 [facility] 12/15 16:42 Order name: 60g Consistent Carbohydrate (ADA 1800/2000) [facility] 12/15 16:42 Order name: Magnesium [facility] 12/15 16:42 Order name: Magnesium [facility] 12/15 16:42 Order name: COVID 19 CPL [facility] 12/15 16:42 Order name: Sputum Culture [facility] 12/15 16:42 Order name: Sputum Gram Stain [facility] 12/15 16:42 Order name: Renal Ultrasound-Complete; Complete Time: 17:59 [facility] 12/15 16:43 Order name: Troponin High Sensitivity [facility] 12/15 16:43 Order name: Troponin High Sensitivity [facility] 12/15 16:43 Order name: Troponin High Sensitivity [facility] 12/15 16:43 Order name: CONS Physician Consult [facility] 12/15 19:31 Order name: Magnesium [facility] 12/15 11:54 Order name: EKG - Nurse/Tech; Complete Time: 12:50 rn 12/15 11:54 Order name: IV Saline Lock; Complete Time: 12:50 rn 12/15 11:54 Order name: Labs collected and sent; Complete Time: 12:50 rn 12/15 11:54 Order name: O2 Per Protocol; Complete Time: 12:54 rn 12/15 11:54 Order name: O2 Sat Monitoring; Complete Time: 12:54 rn Administered Medications: No medications were administered Disposition Summary: 12/15/21 13:15 Hospitalization Ordered Hospitalization Status: Inpatient Admission rn Provider: Francesca Cespedes rn Location: Telemetry/MedSurg (Inpatient) rn Condition: Stable rn Problem: an ongoing problem rn Symptoms: are unchanged rn Bed/Room Type: Standard rn Room Assignment: 211(12/15/21 20:04) cg Diagnosis - Acute kidney failure, unspecified rn - Acute pulmonary edema rn - Unspecified combined systolic (congestive) and diastolic (congestive) heart failure rn Forms: - Medication Reconciliation Form rn - SBAR form rn Signatures: Dispatcher [employer] [facility] Benson Jordan MD MD rn Garcia, Cindy, RN RN cg Prokisch, Amanda RN RN ap3 Corrections: (The following items were deleted from the chart) 20:04 13:15 rn cg
[2021-12-15 13:23] LABS: Troponin High Sensitivity 8.3 pg/mL (<58.9)
[2021-12-15 13:26] LABS: Potassium 4.5 mmol/L (3.5-5.1)
--- NOTE | 2021-12-15 13:29 | RAD REPORT ---
EXAM DESCRIPTION: RAD - Chest Single View - 12/15/2021 1:09 pm CLINICAL HISTORY: Chest pain;Dyspnea COMPARISON: Portable 12/05/2021 TECHNIQUE: AP portable chest image was obtained 12/15/2021 1:09 pm . FINDINGS: Lung volumes are low. No peripheral mass or consolidation. Scarring or linear atelectasis noted in the mid right lung field. No acute lung parenchymal process evident. Heart and vasculature are normal. No measurable pleural effusion and no pneumothorax. No acute bony abnormality seen. No acute aortic findings suspected. IMPRESSION: No acute cardiopulmonary process. Patient has a mildly prominent interstitial pattern is a baseline. This is similar to comparison.
[2021-12-15 13:53] LABS: SARS-COV-2 RT PCR NEGATIVE (NEGATIVE)
--- NOTE | 2021-12-15 16:29 | P.HP ---
Certification for Inpatient Patient admitted to: Inpatient With expected LOS: >2 Midnights Patient will require the following post-hospital care: None Practitioner: I am a practitioner with admitting privileges, knowledge of patient current condition, hospital course, and medical plan of care. Services: Services provided to patient in accordance with Admission requirements found in Title 42 Section 412.3 of the Code of Federal Regulations Patient History Date of Service: 12/15/21 Reason for admission: Shortness of breath History of Present Illness: 81-year-old female past medical history of hypertension, diabetes mellitus, hypothyroidism, history of CHF , CAD s/p stent placement by Dr. Retana 3 weeks ago, noted with increasing shortness of breath and has had Lasix dose adjusted by fiscal officer recently. On repeat blood work patient was noted with elevated creatinine to 1.8 from 1.2. Patient was sent to the hospital because of worsening creatinine. She still complained of shortness of breath, she admits to mild cough. She denies any fever or chills.. She denies any body swelling. She states she has not had COVID vaccine but has been repeatedly negative as well. Chest x-ray mild interstitial pattern which appears chronic. EKG shows normal sinus rhythm with no ST segment changes, Creatinine noted elevated at 1.69 Allergies Penicillins Allergy (Verified 11/30/21 13:16) Itching Home Medications: Aspirin [Aspirin EC 81 MG] 81 mg PO DAILY #30 tablet. 07/15/21 Clopidogrel Bisulfate [Plavix*] 75 mg PO DAILY #30 tablet 07/15/21 Levothyroxine [Synthroid*] 50 mcg PO [id number] 07/20/21 Metformin HCl [Glucophage*] 1 tab PO DAILY 07/20/21 Metoprolol Tartrate [Lopressor*] 25 mg PO DAILY 07/20/21 Pravastatin Sodium 10 mg PO DAILY 07/20/21 Trazodone HCl [Desyrel] 100 mg PO BEDTIME 07/20/21 Apixaban [Eliquis] 5 mg PO BID #60 tablet 07/22/21 predniSONE [Prednisone] 20 mg PO BID #10 tablet 12/06/21 - Past Medical/Surgical History Diabetic: Yes -: Coronary artery disease -: Diabetes mellitus -: Hypertension -: Hypothyroidism -: Cardiac catheterization with PCI -: Appendectomy -: Back Surgery Psychosocial/ Personal History: patient lives at home with her daughter. - Family History Father -: Diabetes - Social History Smoking Status: Never smoker Smoking therapy provided: No Patient receptive to therapy: No Alcohol use: No CD- Drugs: No Caffeine use: No Place of Residence: Home Review of Systems 10-point ROS is otherwise unremarkable Cardiovascular: Paroxysmal Noc. Dyspnea Physical Examination - Physical Exam General: Alert, In no apparent distress, Oriented x3, Cooperative, Cachectic HEENT: Atraumatic, Normocephalic, PERRLA Neck: Supple, 2+ carotid pulse no bruit, JVD not distended Respiratory: Normal air movement, Diminished Cardiovascular: Normal pulses, Regular rate/rhythm, Normal S1 S2 Gastrointestinal: Normal bowel sounds, Soft and benign, Non-distended, No ascites Musculoskeletal: No clubbing, No swelling Neurological: Normal speech, Normal strength at 5/5 x4 extr, Normal tone, Sensation intact External genitalia: No edema, No lesions - Studies Laboratory Data (last 24 hrs) 12/15/21 12:48: WBC 11.2 H D, Hgb 12.0, Hct 36.6, Plt Count 377 12/15/21 12:48: Sodium 133 L, Potassium 4.5, BUN 63 H, Creatinine 1.67 H, Glucose 264 H Assessment and Plan - Plan Atypical pneumoniarule out COVID History of CHFcontrolled not in any acute stress exacerbation Diabetes mellitus Hypertension Acute kidney injury on baseline CKDmay be due to losartan and overdiuresis CADstable Plan Admit to inpatient status Obtain CT of the chest to further evaluate lung parenchyma Obtain Covid screen Start empiric antibiotics with Rocephin Since volume status contrast will ask patient the clinical volume depletion, will hold Lasix for now Serial sets of cardiac enzymes although low likelihood of acute coronary syndrome Continue home medication regimen Strict glycemic control, Accu-Cheks with insulin sliding scale Follow daily weights Subcutaneous Lovenox for DVT prophylaxis Advance directivefull code Discharge Plan: Home Plan to discharge in: 48 Hours - Advance Directives Does patient have a Living Will: No Does patient have a Durable POA for Healthcare: No Physician Review: Patient Assessed, Agree with Above Assessment and Plan Time Spent Managing Pts Care (In Minutes): 60
[2021-12-15] MEDS ORDERED: ONDANSETRON 4 MG/2 ML VIAL IV PRN (16:32)
[2021-12-15] MEDS ORDERED: MORPHINE 2 MG/ML SYR IV PRN (16:32)
[2021-12-15] MEDS ORDERED: ACETAMINOPHEN 500 MG TAB PO PRN (16:32)
[2021-12-15] MEDS ORDERED: ALBUTEROL 2.5 MG/3 ML NEB SOL NEB PRN (16:32)
[2021-12-15] MEDS ORDERED: guaiFENesin 100 MG/5 ML UCUP PO PRN (16:37)
[2021-12-15] MEDS ORDERED: HYDRALAZINE HCL 20 MG/ML VIAL IV PRN (16:37)
--- NOTE | 2021-12-15 17:24 | RAD REPORT ---
EXAM DESCRIPTION: CT - Thorax Wo Con - 12/15/2021 4:54 pm CLINICAL HISTORY: suspcted pneumonia COMPARISON: Chest For Pe Angio dated 07/21/2021; Chest Single View dated 12/15/2021 TECHNIQUE: Axial 5 mm thick images of the chest were obtained without IV contrast. All CT scans are performed using dose optimization technique as appropriate and may include automated exposure control or mA/KV adjustment according to patient size. FINDINGS: No mass or infiltrate in the lung parenchyma. No pleural thickening or pleural effusion. N o pneumothorax. No abnormal mediastinal or hilar masses or lymphadenopathy seen. No gross aortic or pulmonary artery finding suspected. Aortic atherosclerotic calcifications are present without centrally displaced kacey cification. Mediastinal granulomatous calcifications are present along with hilar calcifications. Den se coronary artery calcifications are seen. No chest wall mass or abnormal axillary lymphadenopathy. Moderate-sized hiatal hernia is present. IMPRESSION: No pneumonia or other acute lung parenchymal process. Granulomatous calcification the mediastinum. No suspicious mass or abnormal lymphadenopathy.
--- NOTE | 2021-12-15 17:37 | RAD REPORT ---
EXAM DESCRIPTION: US - Renal Ultrasound-Complete - 12/15/2021 5:21 pm CLINICAL HISTORY: arf COMPARISON: Abdomen Pelvis W Contrast dated 06/14/2021 FINDINGS: The right kidney measures 8.5 x 4.0 x 3.1 cm. The left kidney measures 9.2 x 4.6 x 3.0 cm . Cortical thickness is normal. Kidneys show a lobulated contour that is believed to be normal varian t. No hydronephrosis or suspicious renal mass. Increased cortical echogenicity is present in each kid johan most likely medical renal disease. Bladder is contracted precluding assessment. IMPRESSION: Medical renal disease of the parenchyma identifiable. No hydronephrosis, mass or other suspicious finding.
[2021-12-15 19:31] LABS: Magnesium 2.4 mg/dL (1.8-2.4); Troponin High Sensitivity 8.8 pg/mL (<58.9)
[2021-12-15] MEDS: IPRATROPIUM BROM 0.5MG/2.5ML NEB SCH (20:00)
[2021-12-15] MEDS ORDERED: IPRATROPIUM BROM 0.5MG/2.5ML ONE (20:02)
[2021-12-15] MEDS ORDERED: TRAZODONE 50 MG TABLET PO SCH (21:00)
[2021-12-15] MEDS ORDERED: ATORVASTATIN 10 MG TAB PO SCH (21:00)
[2021-12-15] MEDS ORDERED: HOME MED 1 EA UNK (Trazodone Hcl [Desyrel] 100 MG Tablet) PO SCH (21:00)
[2021-12-15] MEDS: APIXABAN 5 MG TABLET PO SCH (21:27)
[2021-12-15] MEDS: CEFTRIAXONE 1,000 MG in NA CHLORIDE 0.9% 50 ML IVPB SCH (21:27)
[2021-12-15] MEDS: INSULIN -REGULAR HUMAN 50 UNIT/0.5 ML ML SQ SCH (21:27)
[2021-12-16] MEDS: IPRATROPIUM BROM 0.5MG/2.5ML NEB SCH ×3 (01:30→14:00)
[2021-12-16 05:23] VITALS: BMI 35.5
[2021-12-16] MEDS ORDERED: LEVOTHYROXINE SOD 0.05 MG TABLET PO SCH (06:00)
[2021-12-16 06:15] LABS: Absolute Lymphocytes (CBC) 2.8 K/uL (0.7-4.9); Hematocrit 36.8 % (36.0-45.0); MPV 8.4 fL (7.6-11.3); RBC Red Blood Cell Count 4.88 M/uL (3.86-4.86)
[2021-12-16 06:30] LABS: Albumin 3.1 g/dL (3.4-5.0); Bilirubin Total 0.2 mg/dL (0.2-1.0); Potassium 4.1 mmol/L (3.5-5.1); Protein, Total 6.4 g/dL (6.4-8.2)
[2021-12-16] MEDS: INSULIN -REGULAR HUMAN 50 UNIT/0.5 ML ML SQ SCH ×2 (07:30→12:12)
[2021-12-16] MEDS: CEFTRIAXONE 1,000 MG in NA CHLORIDE 0.9% 50 ML IVPB SCH (08:58)
[2021-12-16] MEDS: APIXABAN 5 MG TABLET PO SCH (08:59)
[2021-12-16] MEDS ORDERED: CLOPIDOGREL 75 MG TABLET PO SCH (09:00)
[2021-12-16] MEDS ORDERED: METOPROLOL TAR 25 MG TAB PO SCH (09:00)
[2021-12-16] MEDS ORDERED: ASPIRIN EC 81 MG TAB PO SCH (09:00)
[2021-12-16] MEDS ORDERED: ZINC SULFATE 220 MG CAP PO SCH (09:00)
[2021-12-16] MEDS ORDERED: HOME MED 1 EA UNK (Pravastatin Sodium [Pravastatin Sodium] 10 MG Tablet) PO SCH (09:00)
[2021-12-16 11:50] LABS: Urine Appearance Clear (Clear); Urine Bilirubin Negative (Negative); Urine Blood Trace-intact (Negative); Urine Color Yellow (Yellow); Urine Glucose 3+ (Negative); Urine Protein Negative (Negative); Urine Specific Gravity 1.025 (1.005-1.030); Urine Urobilinogen 0.2 mg/dL (0.2-1.0); Urine pH 5.5 (5.0-7.0)
[2021-12-16 11:54] LABS: Urine Microscopic Reflex ORDER UMIC
[2021-12-16 12:23] LABS: Urine Bacteria 20-50 /HPF (<20)
--- NOTE | 2021-12-16 14:07 | P.DS ---
Admission Date: 12/15/21 Discharge Date: 12/16/21 Disposition: ROUTINE DISCHARGE Discharge Condition: FAIR Reason for Admission: Shortness of breath Brief History of Present Illness: Patient is 81 years of age with a history of diastolic dysfunction coronary artery disease admitted with worsening dyspnea with outpatient therapy Hospital Course: Patient has a chronic dyspnea intermittent asthma shortness of breath has improved since admission patient has chronic renal failure chest x-ray and CT chest are also normal oxygenation vital signs normal at the time of discharge patient still complains of some dyspnea on exertion vital signs stable chest clear chest wheezing cardiovascular system heart sounds normal cussed with cardiology continue with [employer] have also ordered an inhaled bronchodilator fo llow-up with me in 2 weeks she will need outpatient evaluation pulmonary function testing Vital Signs/Physical Exam: Temp Pulse Resp BP Pulse Ox 97.0 F 60 18 136/59 L 98 12/16/21 12:00 12/16/21 12:00 12/16/21 12:00 12/16/21 12:00 12/16/21 12:00 Laboratory Data at Discharge: WBC 8.5 K/uL (4.3-10.9) D 12/16/21 05:32 Hgb 12.0 g/dL (12.0-15.0) 12/16/21 05:32 Hct 36.8 % (36.0-45.0) 12/16/21 05:32 Plt Count 348 K/uL (152-406) 12/16/21 05:32 Sodium 137 mmol/L (136-145) 12/16/21 05:32 Potassium 4.1 mmol/L (3.5-5.1) 12/16/21 05:32 BUN 52 mg/dL (7-18) H 12/16/21 05:32 Creatinine 1.86 mg/dL (0.55-1.3) H 12/16/21 05:32 Glucose 171 mg/dL (74-106) H 12/16/21 05:32 Magnesium 2.4 mg/dL (1.8-2.4) 12/15/21 18:54 Magnesium Cancelled 12/15/21 18:54 Total Bilirubin 0.2 mg/dL (0.2-1.0) 12/16/21 05:32 AST 14 U/L (15-37) L 12/16/21 05:32 ALT 31 U/L (12-78) 12/16/21 05:32 Alkaline Phosphatase 70 U/L (45-117) 12/16/21 05:32 Home Medications: Aspirin [Aspirin EC 81 MG] 81 mg PO DAILY #30 tablet.dr 07/15/21 Clopidogrel Bisulfate [Plavix*] 75 mg PO DAILY #30 tablet 07/15/21 Levothyroxine [Synthroid*] 75 mcg PO [id number] 07/20/21 Metoprolol Tartrate [Lopressor*] 50 mg PO DAILY 07/20/21 Pravastatin Sodium 10 mg PO DAILY 07/20/21 Trazodone HCl [Desyrel] 100 mg PO BEDTIME 07/20/21 Apixaban [Eliquis] 5 mg PO BID #60 tablet 07/22/21 Losartan Potassium [Cozaar*] 50 mg PO BEDTIME 12/15/21 Fluticasone/Vilanterol [Breo Ellipta 200-25 Mcg INH] 1 each IH DAILY 30 Days #30 blst.w.dev 12/16/21 Furosemide [Lasix] 40 mg PO 30 MIN BEFORE HS #30 tablet 12/16/21 New Medications: Fluticasone/Vilanterol [Breo Ellipta 200-25 Mcg INH] 1 each IH DAILY 30 Days #30 blst.w.dev Furosemide [Lasix] 40 mg PO 30 MIN BEFORE HS #30 tablet Physician Discharge Instructions: I have faxed in an inhaler to my office patient to follow-up with me in 2 weeks Followup: Alber Gomez, [Primary Care Provider] - (Call to schedule appoitment)
[2021-12-16 16:19] VITALS: BP 153/63; TEMP 97.4
[2021-12-16 19:15] VITALS: O2SAT 100
--- NOTE | 2021-12-19 11:25 | EKG ---
Test Date: 2021-12-15 Test Time: 12:54:05 [employer] Furniture [employer]: MEASUREMENT RESULTS: Intervals: Rate: 52 NE: 160 QRSD: 84 QT: 456 QTc: 424 [place]: P: 32 NE: 160 QRS: -4 T: 28 INTERPRETIVE STATEMENTS: Sinus bradycardia with sinus arrhythmia Cannot rule out Anterior infarct, age undetermined Abnormal ECG Compared to ECG 12/05/2021 20:46:34 Myocardial infarct finding now present Electronically Signed On 12-19-21 11:14:11 CDT by Deyvi Capone
== END 2021-12-16 16:45 | disposition home or self-care (01) ==
LOC: ER 11:43 → ERHOLD 16:33 → 2ND 20:19
PROVIDERS: ADMIT Internal Medicine; ATTEND Internal Medicine
DX: J18.9 Pneumonia, unspecified organism (principal); I25.10 Atherosclerotic heart disease of native coronary artery without angina pectoris; I11.0 Hypertensive heart disease with heart failure; I50.9 Heart failure, unspecified; N17.9 Acute kidney failure, unspecified; E11.9 Type 2 diabetes mellitus without complications; E03.9 Hypothyroidism, unspecified; Z95.5 Presence of coronary angioplasty implant and graft; Z20.822 Contact with and (suspected) exposure to COVID-19
CPT/HCPCS: 93005; 87088; 85025 ×2; 87086; 80048; 36415; 83735; 82947 ×2; 85379; 84484 ×3; 80053; 83880; 0240U; 71250; 71045; 76770; 94640; 94760; 99285; G0378 ×3; 81003; 81015

== ENCOUNTER 2022-07-20 12:00 | Observation (INO) | payer OTHER ==
--- OUTSIDE RECORDS SUMMARY | 2022-07-20 12:44 | XMS REPORT | Continuity of Care Document ---
:[address] [facility] [place], [place] t Address [address] [place] [address] Care Team Providers Name Role Phone Jason BEGUM [facility] Primary Care Physician [phone] Jason [facility] Lashae Attending Clinician Unavailable CRYSTAL JAMES Attending Clinician Unavailable Marcello PÉREZ, Ofelia Attending Clinician Doctor Unassigned, [place] Attending Clinician Unavailable Christina Lucio MD Attending Clinician Viola Steele Attending Clinician Unavailable Evelio PÉREZ, Jose Shah Attending Clinician Unavailable Roberto Whitaker Attending Clinician ROBERTO WHITAKER Attending Clinician Unavailable LUIS DRAKE Attending Clinician Unavailable Lab, Adc Fam Pob I Attending Clinician Unavailable Edward Brasher Attending Clinician EDWARD RODRÍGUEZ Attending Clinician Unavailable Jenny Giraldo Attending Clinician DESIRE MOREAU Attending Clinician Unavailable Desire Moreau Attending Clinician Omid Dorsey MD Attending Clinician OMID DORSEY Attending Clinician Unavailable [facility] Care Attending Clinician Unavailable Martha Horton PA-C Attending Clinician MARTHA HORTON Attending Clinician Unavailable JOSE FRASER Attending Clinician Unavailable SAKINA MILLAN Attending Clinician Unavailable SAKINA MILLAN Attending Clinician Unavailable SHEEBA DICKERSON Attending Clinician Unavailable Patricia Shi MD Attending Clinician Sheeba Dickerson MD Attending Clinician Sakina Millan MD Attending Clinician Henry Jon DO Attending Clinician NICOLE PILLAI.HEmerson Attending Clinician Unavailable FRANCISCA MARTINS Attending Clinician Unavailable Lona Cooper Attending Clinician Luis Drake MD Attending Clinician 1, [facility] Sleep Lab Bed Attending Clinician Unavailable Only, [facility] Test Attending Clinician Unavailable Kevin Greene MD Attending Clinician [facility] Sleep Lab Attending Clinician Unavailable Ko Dukes Attending Clinician 2, [facility] Lab Attending Clinician Unavailable Bhavin Clayton DO Attending Clinician BHAVIN CLAYTON Attending Clinician Unavailable BHAVIN CLAYTON Attending Clinician Unavailable Motility, Endoscopy Attending Clinician Unavailable Gabriel LIVINGSTON, Sofia Attending Clinician KELLY MITTAL Attending Clinician Unavailable Everton Mcgowan Attending Clinician Kelly Mittal MD Attending Clinician PATRICIA SHI Attending Clinician Unavailable Jeffrey Ko MD Attending Clinician Unknown, Attending Attending Clinician Unavailable Lakshmi CHAVIRA, Francisca Shah Attending Clinician Crystal James MD Attending Clinician Selma Evans Attending Clinician CRYSTAL JAMES Admitting Clinician Unavailable KELLY MITTAL Admitting Clinician Unavailable Kelly Mittal MD Admitting Clinician SARA AVERY Admitting Clinician Unavailable JOSE FRASER Admitting Clinician Unavailable Payers Payer Name Policy Type Policy Number Effective Date Expiration Date S giovanny AETNA MEDICARE [id number] 2016 ADV 00:00:00 [employer]ET[employer] C1 [id number] 2021 Common Spiri t 00:00:00 [facility] Problems Condition Condition Condition Status Onset Resolution Last Treating Co mments Source Name Details Category Date Date Treatment Clinician Date CHRONIC CHRONIC Diagnosis Active 2021-11-12 Memoria LACRIMAL LACRIMAL 10-12 13:56:00 l CANALICULI CANALICULI 00:00: He rmann TIS OF TIS OF 00 BILATE BILATE Active 10/12/2021 [facility] UNK UNK Diagnosis Active 2021-02-21 Mem oria Active 02-10 10:10:00 l 02/10/2021 00:00: Beny hurley 00 [facility] Microalbum Microalbum Disease Active U nivers inuria inuria 5-24 ity of 00:00: Medical Branch Thiamine Thiamine Disease Active 2019-09 Unive rs deficiency deficiency 2-16 it y of 00:00: 00 Medical Branch Iron Iron Disease Active 2019-09 Univers deficiency deficiency 2-16 it y of 00:00: Medical Branch Venous Venous Disease Active 2019-09 Univers insufficie insufficie 2-09 it y of ncy ncy 00:00: [place] 00 Medical Branch Pulmonary Pulmonary Disease Active 2019- Uni vers embolism embolism 3-21 ity of 00:00: [place] 00 Medical Branch History of History of Disease Active Overview : Univers colon colon 9-20 Formattin ity of polyps polyps 00:00: g of this [place] 00 note Medical might be Branch different from the original. Added automatic ally from request for surgery [id number] Asthma Asthma Disease Active Univers exacerbati exacerbati 1-22 it y of on on 00:00: [place] [facility] Renal Renal Disease Active Univers cyst, cyst, 1-21 ity of right right 00:00: Medical Branch Radiculopa Radiculopa Disease Active U nivers thy thy 2- ity of 00:00: [place] [facility] Spinal Spinal Disease Active Univers stenosis, stenosis, 1- ity of lumbar lumbar 00:00: [place] region, region, 00 Medical without without Branch neurogenic neurogenic claudicati claudicati on on Enlarged Enlarged Disease Active 2016-09 Unive rs uterus uterus 0-31 ity of 00:00: [place] [facility] Pelvic Pelvic Disease Active 2016-09 Univers mass mass 0-31 ity of 00:00: [place] [facility] Thickened Thickened Disease Active 2016-09 Uni vers endometriu endometriu 0-31 it y of m m 00:00: Medical Branch Fibroid Fibroid Disease Active 2016-09 Univers uterus uterus 0-31 ity of 00:00: [place] [facility] Fatty Fatty Disease Active 2016-09 Univers liver liver 0-05 ity of 00:00: Medical Branch Abnormal Abnormal Disease Active Unive rs LFTs LFTs 9-21 ity of (liver (liver 00:00: [place] function function 00 Medica l tests) tests) Branch Chronic Chronic Disease Active Univers insomnia insomnia 9- ity of 00:00: [place] 00 Medical Branch 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 9-21 it y of ia ia 00:00: [place] [id number] Medical Branch [id number] Type 2 Problem Common diabetes Spirit mellitus - CHI with [facility] Center long-term current use of insulin [id number] Coronary Problem Comm on artery Spirit disease of - CHI [place] [facility] artery of [facility] tyonek Medical heart with Center stable angina pectoris [id number] Essential Problem Comm on hypertensi Spirit on - [facility] [id number] Stented Problem Commo n coronary Spirit artery - CH[facility] [id number] Acquired Problem Comm on hypothyroi Spirit dism - CH[facility] [id number] GERD Problem Common without Spirit esophagiti - CHI s [facility] [id number] Primary Problem Common insomnia Spirit - CH[facility] [id number] Mixed Problem Common hyperlipid Spirit emia - CHI [facility] [id number] Acute Problem Common adjustment Spirit disorder - CHI with [facility] [id number] Paroxysmal Problem Co mmon atrial Spirit fibrillati - CHI on [facility] No known No known Disease Metho di active active st problems problems Hospit a l Depressive Depressiv Problem Resolve 2021-11-07 Memoria disorder e disorder d 08:39:00 l (disorder) (disorder) He rmann Resolved [facility] of History Problem Resolve 2021-11-07 Memoria - Sam's of - d 08:39:00 l palsy [facility] [place] (context-d palsy ependent (context-d category) ependent category) Resolved Problem [facility]07[facility] History of History Problem Resolve 2021-11-07 Memoria Lyme of Lyme d 08:39:00 l disease disease Chong (situation (situation ) ) Resolved Problem 11/07/2021 [facility] [place] [facility] Chronic Chronic Problem Active 2021-11-07 Me moria congestive congestive 08:39:00 l heart heart [place]ong failure failure (disorder) (disorder) Active Problem 11/07/2021 [facility] [place] [facility] Diabetes Diabetes Problem Active 2021-11-07 Memoria mellitus mellitus 08:39:00 l (disorder) (disorder) He rmann Active Problem 11/07/2021 Medical Group,[facility] Ectropion Problem Active 2021-11-07 Me moria of eyelid Ectropion 08:39:00 l (disorder) of eyelid Her farnsworth (disorder) Active Problem 11/07/2021 [facility] [place] [facility] Heartburn Heartburn Problem Active 2021-11-07 Memoria (finding) (finding) 08:39:00 l Active [place] Problem 11/07/2021 Medical [facility] Hypertensi Hypertens Problem Active 2021-11-07 Memoria ve karolyn 08:39:00 l disorder, disorder, Herm josefina systemic systemic arterial arterial (disorder) (disorder) Active Problem 11/07/2021 Medical Group,[facility] Hypothyroi Hypothyro Problem Active 2021-11-07 Memoria dism idism 08:39:00 l (disorder) (disorder) He rmann Active Problem 11/07/2021 Medical Group,[facility] Morbid Morbid Problem Active 2021-11-07 Ramses emanuel obesity obesity 08:39:00 l (disorder) (disorder) He rmann Active Problem 11/07/2021 [facility] [place] [facility] Peripheral Periphera Problem Active 2021-11-07 Memoria arterial l arterial 08:39:00 l disease disease [place] Active Problem 11/07/2021 [facility] Ptosis of Ptosis of Problem Active 2021-11-07 Memoria eyelid eyelid 08:39:00 l (disorder) (disorder) He rmann Active Problem 11/07/2021 Medical [facility] Deep Deep Problem Resolve 2021-11-07 Ramses emanuel venous venous d 08:39:00 l thrombosis thrombosis He rmann (disorder) (disorder) Resolved Problem 11/07/2021 Medical Group,[facility] Edema Edema Disease Active Univers ity [facility] Type 2 Type 2 Disease Active Univers diabetes diabetes ity of mellitus mellitus [place] without without Medical complicati complicati Br anch on, on, without without long-term long-term current current use of use of insulin insulin Dry eyes Dry eyes Disease Active Unive rs ity [facility] Edema Edema Disease Active Univers y [facility] Esophageal Esophageal Disease Active U nivers reflux reflux ity [facility] Obesity Obesity Disease Active Univers [facility] Parapelvic Parapelvic Disease Active U nivers renal cyst renal cyst it y of [facility] Chronic Chronic Disease Active Univers low back low back ity of pain with [place] sciatic[place] sciatica [facility] [id number] Type 2 [place] [id number] diabetes Spirit mellitus - CHI with other diabetic [facility] kidney Medical complicati Center on [id number] Type 2 Problem Commo n 05 diabetes Spirit mellitus - CHI with diabetic [facility] chronic [facility] kidney Center disease [id number] Depression Problem Com mon , major, Spirit single - CHI episode, [facility] [id number] Chronic Problem Commo n kidney Spirit disease, - CHI stage 3 [facility] [id number] Body mass Problem Com mon index Spirit [BMI] - CHI 37.0-37.9, [facility] [id number] Morbid Problem Commo n 9104 (severe) Spirit obesity - CHI due to [facility] [id number] Obstructiv Problem Com mon e sleep Spirit apnea - CH[facility] Congestive 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 - [facility] [id number] Osteoporos Problem Com mon is, Spirit unspecifie - CHI d osteoporos [facility] is type, Medical unspecExcela [facility] d pathologic al fracture presence [id number] Nonalcohol Problem Co mmon ic fatty Spirit liver - CHI disease [facility] Allergies, Adverse Reactions, Alerts Allergy Allergy Status Severity Reaction(s) Onset Inactive Treating Comm ents Source Name Type Date Date Clinician Lisinopr Propensi Active Cough Method i il ty to 01-11 st adverse 00:00: Hospita reaction 00 l s to drug Penicill Propensi Active Rash Method i ins ty to 01-11 st adverse 00:00: Hospita reaction 00 l s to drug METOPROL DRUG Active Med ITCHING Univers OL INGREDI 02-04 ity of 00:00: Medical Mary Esther Metoprol Propensi Active Rash Univer s ol ty to 02-04 ity of adverse 00:00: [place] reaction 00 Medical [facility] LOSARTAN DRUG Active Dizziness 2019- Unive rs INGREDI 06-09 ity of 00:00: [place] 00 Medical Branch AMLODIPI DRUG Active Other-Cmnt Univ ers NE INGREDI 06-09 ity of 00:00: Medical Branch Amlodipi Propensi Active Other - See 2019- GERD U nivers ne ty to comments 06-09 ity of adverse 00:00: [place] reaction 00 Medical s Branch Losartan Propensi Active Dizziness 2019- Uni vers ty to 06-09 ity of adverse 00:00: [place] reaction 00 Medical [facility] APIXABAN DRUG Active Swelling 2019- Univer s INGREDI 01-04 ity of 00:00: [place] 00 Medical Branch Apixaban Propensi Active Swelling 2020-0 Univ ers ty to 4-20 ity of adverse 00:00: [place] reaction 00 Medical s Branch FIBRATE Drug Active Other-Cmnt 2019-0 Unive rs ANTI-LIP Class 2-23 ity of IDEMICS 00:00: [place] 00 Medical Branch EZETIMIB DRUG Active Other-Cmnt 2020-0 Univ ers E INGREDI 2-23 ity of 00:00: [place] 00 Medical Branch Fibrate Propensi Active Other - See 2019-0 Severe Un whit[place] Anti-Lip ty to comments 2-23 myalgia ity o f idemics adverse 00:00: [place] reaction 00 Medical s Branch Fibrate Propensi Active Other - See 2019-0 Severe Un [place] Anti-Lip ty to comments 2-23 myalgia ity o f idemics adverse 00:00: [place] reaction 00 Medical s Branch Ezetimib Propensi Active Other - See 2019-0 Severe U nivers e ty to comments 2-23 myalgia ity of adverse 00:00: [place] reaction 00 Medical s Branch AMPICILL DRUG Active Rash 2017-0 Univers IN INGREDI 9-11 ity of 00:00: [place] 00 Medical Branch STATINS- Drug Active Other-Cmnt 20170 Univ ers HMG-COA Class 9-11 ity of REDUCTAS 00:00: [place] E 00 Medical INHIBITO Branch RS Statins- Propensi Active Other - See 2017-0 Severe U nivers Hmg-Coa ty to comments 9-11 myalgia ity of Reductas adverse 00:00: [place] e reaction 00 Medical Inhibito s Branch rs Statins- Propensi Active Other - See 2017-0 Severe U nivers Hmg-Coa ty to comments 9-11 myalgia ity of Reductas adverse 00:00: [place] e reaction 00 Medical Inhibito s Branch rs Ampicill Propensi Active Rash 2017-0 Univer s in ty to 9-11 ity of adverse 00:00: [place] reaction 00 Medical s Branch Statins- Propensi Active Other - See 2017-0 Severe U nivers Hmg-Coa ty to comments 9-11 myalgia ity of Reductas adverse 00:00: [place] e reaction 00 Medical Inhibito s Branch rs ampicill ampicill Active rash Common in in [facility] 8102 Drug Active Cough Common allergy [facility] ampicill ampicill Active Memori a in in l [place] lisinopr lisinopr Active Memori a il il l [place] penicill penicill Active Memori a in in l [place] Social History Social Habit Start Date Stop Date Quantity Comments Source History of Common Spirit - Tobacco Use [facility] Exposure to Not sure University of SARS-CoV-2 [facility] (event) Branch Alcohol intake 2022-07-10 2022-07-10 Lifetime Jew 00:00:00 00:00:00 non-drinker Hospital (finding) Tobacco use and 2022-01-11 2022-01-11 Smokeless tobacco Me thodist exposure 00:00:00 00:00:00 non-user Hospital Social History 2021-10-28 2021-10-28 [facility] H ermann 20:55:52 20:55:52 History [facility] Food 2019-12-07 2019-12-07 1 Univers ity of Worry 00:00:00 00:00:00 [place] [facility] History SDOK Food 2019-12-07 2019-12-07 1 Univers ity of Scarcity 00:00:00 00:00:00 [place] [facility] History SDOH 2019-12-07 2019-12-07 2 University o f Transport Med 00:00:00 00:00:00 [facility] al Branch History SDOK 2019-12-07 2019-12-07 2 [place] o f Transport Non-Med 00:00:00 00:00:00 [facility] [place] [facility] Branch Sex Ass[birth year] At [birth year] Jew 00:00:00 00:00:00 Hospital Smoking Status Start Date Stop Date Source Never smoked tobacco Jew H ospital Medications Ordered Filled Start Stop Current Ordering Indication Dosage Frequency Signature Comments Components Source Medication Medication Date Date Medication? Clinician (SIG) Name Name pravastatin 2021-09- No 20mg Q2D Take 1 Met hodi (PRAVACHOL) 0-24 10-[address] 20 MG 15:45: 00:00 mouth Hospita tablet 54 :00 every l other day. losartan 2021-09- No 1 TABLET Meth stan (COZAAR) 50 0-24 10-[address] MG tablet 15:45: 00:00 ONCE A DAY H ospita 41 :00 30 DAY(S) l rosuvastati 2021-09 Yes 10mg QD Take 1 Meth stan n (CRESTOR) 0-24 tablet (10 st 10 mg 15:19: mg total) Hospita tablet 38 by mouth l daily. citalopram Yes 1{tbl} 1 tablet. Methodi (CeleXA) 40 6-01 st MG tablet 15:02: Hospita 43 l metoprolol 0 Yes 1{tbl} 1 tablet. Methodi succinate - st XL 15:02: Hospita (TOPROL-XL) 43 l 50 mg 24 hr tablet losartan Yes 1 TABLET Metho di (COZAAR) 50 6- ORALLY st MG tablet 15:02: ONCE A DAY Ho spita 43 30 DAY(S) l citalopram Yes 1{tbl} 1 tablet. Methodi (CeleXA) 40 6-01 st MG tablet 15:02: Hospita 43 l pravastatin 0 Yes 1{tbl} Q2D Take 1 Me thodi (PRAVACHOL) 02-[address] 20 MG 15:02: mouth Hospita tablet 43 every l other day. metoprolol 0 Yes 1{tbl} 1 tablet. Methodi succinate 02-15 st XL 15:02: Hospita (TOPROL-XL) 43 l 50 mg 24 hr tablet fluticasone 0 Yes QD Inhale 1 Me thodi furoate-lamar - inhalation st anteroL 00:00: s once Hospita (Breo 00 daily. l Ellipta) 200-25 mcg/dose blister with device powder for inhalation fluticasone 0 Yes QD Inhale 1 Me thodi furoate-lamar - inhalation st anteroL 00:00: s once Hospita (Breo 00 daily. l Ellipta) 200-25 mcg/dose blister with device powder for inhalation fluticasone 2021- No 1{puff} Q.5D Inhale 1 Methodi propion-serge - [address] meteroL 00:00: 00:00 (two) Hospita (AirDuo 00 :00 times a l RespiClick) day. 232-14 mcg/actuati on aerosol powdr breath activated fluticasone 2021- No 1{puff} Q.5D Inhale 1 Methodi propion-serge 02-[address] meteroL 00:00: 00:00 (two) Hospita (AirDuo 00 :00 times a l RespiClick) day. 232-14 mcg/actuati on aerosol powdr breath activated levothyroxi Yes Method i ne 5-31 st (SYNTHROID) 00:00: Hospit a 75 mcg 00 l tablet levothyroxi 0 Yes Method i ne 5-31 st (SYNTHROID) 00:00: Hospit a 75 mcg 00 l tablet Breo 0 2021- No Methodi Ellipta 30 02-15 st 200-25 00:00: 00:00 Hospita mcg/dose 00 :00 l blister with device powder for inhalation Breo 2021-0 2021- No Methodi Ellipta 02-13 st 200-25 00:00: 00:00 Hospita mcg/dose 00 :00 l blister with device powder for inhalation dexlansopra 2021-0 Yes 60mg Take 60 mg Methodi zole 4-[address] (DEXILANT) 00:00: Hospita 60 mg 00 l capsule DEXILANT 60 2021-0 Yes [id number] 60mg TAKE 1 Univers mg capsule 4-18 CAPSULE BY ity of 00:00: MOUTH [place] 00 DAILY. Medical STOP Branch ESOMEPRAZO LE. DEXILANT 60 2021-0 Yes [id number] 60mg TAKE 1 Univers mg capsule 4-18 CAPSULE BY ity of 00:00: MOUTH [place] 00 DAILY. Medical STOP Branch ESOMEPRAZO LE. DEXILANT 60 2021-0 Yes [id number] 60mg TAKE 1 Univers mg capsule 4-18 CAPSULE BY ity of 00:00: MOUTH [place] 00 DAILY. Medical STOP Branch ESOMEPRAZO LE. dexlansopra 2021-0 Yes 60mg Take 60 mg Methodi zole 4-[address] (DEXILANT) 00:00: Hospita 60 mg 00 l capsule spironolact 2021-0 Yes 25mg QD Take 25 mg Methodi one 4-[address] (ALDACTONE) 00:00: daily. Hosp yoshi 25 MG 00 l tablet spironolact 2021-0 Yes 25mg QD Take 25 mg Methodi one 4-[address] (ALDACTONE) 00:00: daily. Hosp yoshi 25 MG 00 l tablet DEXILANT 60 2021-0 Yes [id number] 60mg TAKE 1 Univers mg capsule 3-22 CAPSULE BY ity of 00:00: MOUTH [place] 00 DAILY. Medical STOP [facility] DEXILANT 60 2021-0 2- No [id number] 60mg TAKE 1 Univers mg capsule 3-22 -18 CAPSULE BY it y of 00:00: 00:00 MOUTH [place] 00 :00 DAILY. [facility] LE. furosemide 2021- Yes 40mg QD Take 40 mg M ethodi (LASIX) 40 3-[address] mg tablet 00:00: daily. Hospit a 00 l furosemide 2021-0 Yes 40mg QD Take 40 mg M ethodi (LASIX) 40 3-[address] mg tablet 00:00: daily. Hospit a 00 l Farxiga 5 Farxiga 5 2021-2021- No 1{table QD Farxiga 5 MG MG 3-15 -14 t} MG 00:00: 00:00 00 :00 Farxiga 5 Farxiga 5 2021-0 2021- No 1{table QD Farxiga 5 MG MG 3-15 -14 t} MG 00:00: 00:00 00 :00 aspirin 2021-0 Yes 81mg QD Take 81 mg Meth stan (ECOTRIN) 2-[address] 81 MG 00:00: daily. Hospita enteric 00 l coated tablet CLOPIDOGREL 2021-0 Yes [id number] TAKE 1 Univers 75 mg 2-25 [id number] TABLET BY ity of tablet 00:00: MOUTH [place] 00 EVERY DAY Medical Branch CLOPIDOGREL 2021-0 Yes [id number] TAKE 1 Univers 75 mg 2-25 [id number] TABLET BY ity of tablet 00:00: MOUTH [place] 00 EVERY DAY Medical Branch CLOPIDOGREL 2-0 Yes [id number] TAKE 1 Univers 75 mg 2-25 [id number] TABLET BY ity of tablet 00:00: MOUTH [place] 00 EVERY DAY Medical Branch CLOPIDOGREL 2021-0 Yes [id number] TAKE 1 Univers 75 mg 2-25 [id number] TABLET BY ity of tablet 00:00: MOUTH [place] 00 EVERY DAY Medical Branch CLOPIDOGREL 2021-0 Yes [id number] TAKE 1 Univers 75 mg 2-25 [id number] TABLET BY ity of tablet 00:00: MOUTH [place] 00 EVERY DAY Medical Branch aspirin 0 Yes 81mg QD Take 81 mg Meth stan (ECOTRIN) 2-[address] 81 MG 00:00: daily. Hospita enteric 00 l coated tablet DEXILANT 60 0 Yes [id number] 60mg TAKE 1 Univers mg capsule 2-24 CAPSULE BY ity of 00:00: MOUTH [place] 00 DAILY. Medical STOP Branch ESOMEPRAZO LE. DEXILANT 60 0 2021- No [id number] 60mg TAKE 1 Univers mg capsule 2-24 03-22 CAPSULE BY it y of 00:00: 00:00 MOUTH [place] 00 :00 DAILY. Medical STOP Branch ESOMEPRAZO LE. traZODone Yes TAKE 1 Method i (DESYREL) 2-[address] 100 MG 00:00: MOUTH Hospita tablet 00 EVERY DAY l AT BEDTIME FOR 90 DAYS traZODone Yes TAKE 1 Method i (DESYREL) 2-[address] 100 MG 00:00: MOUTH Hospita tablet 00 EVERY DAY l AT BEDTIME FOR 90 DAYS Albuterol Yes 2.5 mg = 3 Me moria 0.83 MG/ML 2-16 mL, NEB, l Inhalant 18:42: PRN, 0 [place] Solution 00 Refill(s) Albuterol Yes 2.5 mg = 3 Me moria 0.83 MG/ML 2-16 mL, NEB, l Inhalant 18:42: PRN, 0 [place] Solution 00 Refill(s) Vitamin B6 0 Yes Daily, 0 Mem oria 2-16 Refill(s) l 16:59: [place] 00 Vitamin C 2021-0 Yes Daily, 0 Ramses emanuel 2-16 Refill(s) l 16:59: [place] 00 Vitamin B6 2021-0 Yes Daily, 0 Mem oria 2-16 Refill(s) l 16:59: [place] 00 Vitamin C 0 Yes Daily, 0 Ramses emanuel 2-16 Refill(s) l 16:59: [place] 00 alcaftadine Yes 1 drp, Ramses emanuel 2.5 MG/ML 2-16 Each l Ophthalmic 16:58: Affected Her farnsworth Solution 00 Eye, [Lastacaft] Daily, PRN Itching, # 3 mL, 3 Refill(s) Nexium 2021-0 Yes PO, Daily, Memor ia 2-16 0 l 16:58: Refill(s) alcaftadine Yes 1 drp, Ramses emanuel 2.5 MG/ML 2-16 Each l Ophthalmic 16:58: Affected Her farnsworth Solution 00 Eye, [Lastacaft] Daily, PRN Itching, # 3 mL, 3 Refill(s) Nexium 2021-0 Yes PO, Daily, Memor ia 2-16 0 l 16:58: Refill(s) metoprolol Yes 50 mg = 1 Me moria succinate 2-16 cap, PO, l 50 mg oral 16:57: Daily, 0 Her farnsworth capsule, 00 Refill(s) extended release metoprolol Yes 50 mg = 1 Me moria succinate 2-16 cap, PO, l 50 mg oral 16:57: Daily, 0 Her farn[place] capsule, 00 Refill(s) extended release Citalopram Yes 40 mg, PO, M emoria 2-16 Daily, 0 l 16:56: Refill(s) ibandronic Yes 150 mg = 1 M emoria acid 150 MG 2-16 tab, PO, l Oral Tablet 16:56: qMonth, 0 H erm Refill(s) Citalopram Yes 40 mg, PO, M emoria 2-16 Daily, 0 l 16:56: Refill(s) ibandronic Yes 150 mg = 1 M emoria acid 150 MG 2-16 tab, PO, l Oral Tablet 16:56: qMonth, 0 H erm Refill(s) Losartan 0 Yes 50 mg, PO, Mem oria 2-16 Daily, 0 l 16:55: Refill(s) Losartan 0 Yes 50 mg, PO, Mem oria 2-16 Daily, 0 l 16:55: Refill(s) clopidogrel Yes 75 mg = 1 M emoria 75 MG Oral 2-11 tab, PO, l Tablet 20:38: Daily, 0 [place] [Plavix] Refill(s) clopidogrel Yes 75 mg = 1 M emoria 75 MG Oral 2-11 tab, PO, l Tablet 20:38: Daily, 0 [place] [Plavix] 00 Refill(s) Aspirin 2021-0 Yes 81 mg, PO, Ramses emanuel 2-11 Daily, 0 l 20:37: Refill(s) Aspirin 2021-0 Yes 81 mg, PO, Ramses emanuel 2-11 Daily, 0 l 20:37: Refill(s) [place] 00 clopidogreL Yes 1{tbl} QD Take 1 Me thodi (PLAVIX) 75 2-[address] mg tablet 00:00: mouth Hospita 00 daily. l clopidogreL Yes 1{tbl} QD Take 1 Me thodi (PLAVIX) 75 2-[address] mg tablet [facility] daily. l hydrOXYzine hydrOXYzine 2020-09 No 1{capsu hydrOXYzin Pamoate 25 Pamoate 25 2-13 le_as_n e Pamoate MG MG 00:00: eeded} 25 MG 00 hydrOXYzine hydrOXYzine 2020-09 No 1{capsu Pamoate 25 Pamoate 25 2-13 le_as_n MG MG 00:00: eeded} 00 DEXILANT 60 Yes [id number] 60mg TAKE 1 [facility] mg capsule 8-18 CAPSULE BY ity of 00:00: MOUTH [place] 00 DAILY. Medical STOP Branch ESOMEPRAZO LE. lisinopriL Yes [id number] 20mg Take 1 U nivers 20 mg 6-22 tablet by ity of tablet 00:00: mouth [place] 00 daily. Medical Branch levothyroxi Yes [id number] 50ug Take 1 [facility] ne 50 mcg 6-22 tablet by ity o f tablet 00:00: mouth [place] 00 every Medical morning. Branch lisinopriL Yes [id number] 20mg Take 1 U nivers 20 mg 6-22 tablet by ity of tablet 00:00: mouth [place] 00 daily. Medical Branch levothyroxi Yes [id number] 50ug Take 1 [facility] ne 50 mcg 6-22 tablet by ity o f tablet 00:00: mouth [place] 00 every Medical morning. Branch lisinopriL 0 Yes [id number] 20mg Take 1 U nivers 20 mg 6-22 tablet by ity of tablet 00:00: mouth [place] 00 daily. Medical Branch levothyroxi 0 Yes [id number] 50ug Take 1 [facility] ne 50 mcg 6-22 tablet by ity o f tablet 00:00: mouth [place] 00 every Medical morning. Branch lisinopriL 2020-0 Yes [id number] 20mg Take 1 U nivers 20 mg 6-22 tablet by ity of tablet 00:00: mouth [place] 00 daily. Medical Branch levothyroxi 0 Yes [id number] 50ug Take 1 [facility] ne 50 mcg 6-22 tablet by ity o f tablet 00:00: mouth [place] 00 every Medical morning. Branch lisinopriL 0 Yes [id number] 20mg Take 1 U nivers 20 mg 6-22 tablet by ity of tablet 00:00: mouth [place] 00 daily. Medical Branch levothyroxi 0 Yes [id number] 50ug Take 1 [facility] ne 50 mcg 6-22 tablet by ity o f tablet 00:00: mouth [place] 00 every Medical morning. Branch lisinopriL 0 Yes [id number] 20mg Take 1 U nivers 20 mg 6-22 tablet by ity of tablet 00:00: mouth [place] 00 daily. Medical Branch levothyroxi 2020-0 Yes [id number] 50ug Take 1 [facility] ne 50 mcg 6-22 tablet by ity o f tablet 00:00: mouth [place] 00 every Medical morning. Branch lisinopriL 2020-0 Yes [id number] 20mg Take 1 U nivers 20 mg 6-22 tablet by ity of tablet 00:00: mouth [place] 00 daily. Medical Branch levothyroxi 2020-0 Yes [id number] 50ug Take 1 [facility] ne 50 mcg 6-22 tablet by ity o f tablet 00:00: mouth [place] 00 every Medical morning. Branch lisinopriL 2020-0 Yes [id number] 20mg Take 1 U nivers 20 mg 6-22 tablet by ity of tablet 00:00: mouth [place] 00 daily. Medical Branch levothyroxi 2020-0 Yes [id number] 50ug Take 1 [facility] ne 50 mcg 6-22 tablet by ity o f tablet 00:00: mouth [place] 00 every Medical morning. [place] lisinopriL Yes [id number] 20mg Take 1 U nivers 20 mg 6-22 tablet by ity of tablet 00:00: mouth [place] 00 daily. [facility] levothyroxi Yes [id number] 50ug Take 1 [facility] ne 50 mcg 6-22 tablet by ity o f tablet 00:00: mouth [place] 00 every Medical morning. Branch lisinopriL Yes [id number] 20mg Take 1 U nivers 20 mg 6-22 tablet by ity of tablet 00:00: mouth [place] 00 daily. [facility] Branch levothyroxi Yes [id number] 50ug Take 1 [facility] ne 50 mcg 6-22 tablet by ity o f tablet 00:00: mouth [place] 00 every Medical morning. [place] lisinopriL Yes [id number] 20mg Take 1 U nivers 20 mg 6-22 tablet by ity of tablet 00:00: mouth [place] 00 daily. [facility] levothyroxi Yes [id number] 50ug Take 1 [facility] ne 50 mcg 6-22 tablet by ity o f tablet 00:00: mouth [place] 00 every Medical morning. [place] LEVOTHYROXI Yes [id number] TAKE 1 [facility] NE 50 mcg 6-21 TABLET BY ity o f tablet 00:00: MOUTH [place] 00 EVERY DAY Medical IN THE [place] MORNING LEVOTHYROXI 2020-2020- No [id number] TAKE 1 [facility] NE 50 mcg 6-21 06-22 TABLET BY ity of tablet 00:00: 00:00 MOUTH [place] 00 :00 EVERY DAY Medical IN THE [place] MORNING LEVOTHYROXI 2020-0 2020- No [id number] TAKE 1 [facility] NE 50 mcg 6-21 06-22 TABLET BY ity of tablet 00:00: 00:00 MOUTH [place] 00 :00 EVERY DAY Medical IN THE [place] MORNING TRIAMTERENE Yes [id number] TAKE 1 [facility] -HYDROCHLOR 6-08 TABLET BY ity of OTHIAZID 00:00: MOUTH [place] 37.5-25 mg 00 EVERY DAY Medi kacey tablet [place] TRIAMTERENE Yes [id number] TAKE 1 [facility] -HYDROCHLOR 6-08 TABLET BY ity of OTHIAZID 00:00: MOUTH [place] 37.5-25 mg 00 EVERY DAY Medi kacey tablet Branch TRIAMTERENE 2020-0 Yes [id number] TAKE 1 [facility] -HYDROCHLOR 6-08 TABLET BY ity of OTHIAZID 00:00: MOUTH [place] 37.5-25 mg 00 EVERY DAY Medi kacey tablet Branch TRIAMTERENE 2020-0 Yes [id number] TAKE 1 [facility] -HYDROCHLOR 6-08 TABLET BY ity of OTHIAZID 00:00: MOUTH [place] 37.5-25 mg 00 EVERY DAY Medi kacey tablet Branch TRIAMTERENE 2020-0 Yes [id number] TAKE 1 [facility] -HYDROCHLOR 6-08 TABLET BY ity of OTHIAZID 00:00: MOUTH [place] 37.5-25 mg 00 EVERY DAY Medi kacey tablet Branch TRIAMTERENE 2020-0 Yes [id number] TAKE 1 [facility] -HYDROCHLOR 6-08 TABLET BY ity of OTHIAZID 00:00: MOUTH [place] 37.5-25 mg 00 EVERY DAY Medi kacey tablet Branch TRIAMTERENE 2020-0 Yes [id number] TAKE 1 [facility] -HYDROCHLOR 6-08 TABLET BY ity of OTHIAZID 00:00: MOUTH [place] 37.5-25 mg 00 EVERY DAY Medi kacey tablet Branch TRIAMTERENE 2020-0 Yes [id number] TAKE 1 [facility] -HYDROCHLOR 6-08 TABLET BY ity of OTHIAZID 00:00: MOUTH [place] 37.5-25 mg 00 EVERY DAY Medi kacey tablet Branch TRIAMTERENE 2020-0 Yes [id number] TAKE 1 [facility] -HYDROCHLOR 6-08 TABLET BY ity of OTHIAZID 00:00: MOUTH [place] 37.5-25 mg 00 EVERY DAY Medi kacey tablet Branch TRIAMTERENE 2020-0 Yes [id number] TAKE 1 [facility] -HYDROCHLOR 6-08 TABLET BY ity of OTHIAZID 00:00: MOUTH [place] 37.5-25 mg 00 EVERY DAY Medi kacey tablet Branch TRIAMTERENE 2020-0 Yes [id number] TAKE 1 [facility] -HYDROCHLOR 6-08 TABLET BY ity of OTHIAZID 00:00: MOUTH [place] 37.5-25 mg 00 EVERY DAY Medi kacey tablet Branch TRIAMTERENE 2020-0 Yes [id number] TAKE 1 [facility] -HYDROCHLOR 6-08 TABLET BY ity of OTHIAZID 00:00: MOUTH [place] 37.5-25 mg 00 EVERY DAY Medi kacey tablet Branch TRIAMTERENE 0 Yes [id number] TAKE 1 [facility] -HYDROCHLOR 6-08 TABLET BY ity of OTHIAZID 00:00: MOUTH [place] 37.5-25 mg 00 EVERY DAY Medi kacey tablet Branch TRIAMTERENE 0 Yes [id number] TAKE 1 [facility] -HYDROCHLOR 6-08 TABLET BY ity of OTHIAZID 00:00: MOUTH [place] 37.5-25 mg 00 EVERY DAY Medi kacey tablet Branch TRIAMTERENE 2020-0 Yes [id number] TAKE 1 [facility] -HYDROCHLOR 6-08 TABLET BY ity of OTHIAZID 00:00: MOUTH [place] 37.5-25 mg 00 EVERY DAY Medi kacey tablet Branch Acetaminoph 0 No 1,000 mg, M emoria en 02-21 Route: PO, l 19:59: Drug form: [place] 00 TAB, ONCE, Dosing Weight 75.455, kg, PRN Pain Score 1-3, Start date: 02/21/21 14:59:00 CDT Oxycodone 2020-0 No 5 mg, Memoria Hydrochlori 02-21 Route: PO, l de 5 MG 19:59: Drug form: Herm josefina Oral Tablet 00 TAB, Q4H, Dosing Weight 75.455, kg, PRN Pain Score 4-6, Start date: 02/21/21 14:59:00 CDT, Duration: 30 day, Stop date: 03/23/21 14:58:00 CDT Fentanyl 2020-0 No 25 Memoria -07 microgram, l 19:59: Route: [place] 00 IVP, Q5Min, Dosing Weight 75.455, kg, PRN Pain Score 4-6, Priority: Routine, Start date: 02/21/21 14:59:00 CDT, Duration: 4 doses or times, Stop date: Limited # of times Hydromorpho 2020-0 No 0.5 mg, Mem oria ne 02-21 Route: l 19:59: IVP, [place] 00 Q5Min, Dosing Weight 75.455, kg, PRN Pain Score 7-10, Start date: 02/21/21 14:59:00 CDT, Duration: 4 doses or times, Stop date: Limited # of times Flumazenil 2021-0 No 0.2 mg, Ramses emanuel 02-21 Route: l 19:59: IVP, PRN, [place] 00 Dosing Weight 75.455, kg, PRN Benzodiaze pine Reversal, Initial dose, Start date: 02/21/21 14:59:00 CDT, Duration: 30 day, Stop date: 03/23/21 14:58:00 CDT Naloxone 1-0 No 0.4 mg, Memori a 02-21 Route: l 19:59: IVP, [place] 00 Q2MIN, Dosing Weight 75.455, kg, PRN Narcotic Reversal, Start date: 02/21/21 14:59:00 CDT, Duration: 8 doses or times, Stop date: Limited # of times Meperidine 2020-0 No 12.5 mg, Mem oria 02-21 Route: l 19:59: IVP, [place] 00 Q30Min, Dosing Weight 75.455, kg, PRN Other -See Comment, For shivering, Start date: 02/21/21 14:59:00 CDT, Duration: 2 doses or times, Stop date: Limited # of times Ondansetron 2020-0 No 4 mg, Memor ia 02-21 Route: l 19:59: IVP, ONCE, [place] 00 Dosing Weight 75.455, kg, PRN Nausea & Vomiting, Start date: 02/21/21 14:59:00 CDT Acetaminoph 2020-0 No 1,000 mg, M emoria en 02-21 Route: PO, l 19:59: Drug form: [place] 00 TAB, ONCE, Dosing Weight 75.455, kg, PRN Pain Score 1-3, Start date: 02/21/21 14:59:00 CDT Oxycodone 1-0 No 5 mg, Memoria Hydrochlori 02-21 Route: PO, l de 5 MG 19:59: Drug form: Herm josefina Oral Tablet 00 TAB, Q4H, Dosing Weight 75.455, kg, PRN Pain Score 4-6, Start date: 02/21/21 14:59:00 CDT, Duration: 30 day, Stop date: 03/23/21 14:58:00 CDT Fentanyl 2020-0 No 25 Memoria 6-07 microgram, l 19:59: Route: [place] 00 IVP, Q5Min, Dosing Weight 75.455, kg, PRN Pain Score 4-6, Priority: Routine, Start date: 02/21/21 14:59:00 CDT, Duration: 4 doses or times, Stop date: Limited # of times Hydromorpho 2020-0 No 0.5 mg, Mem oria ne 02-21 Route: l 19:59: IVP, [place] 00 Q5Min, Dosing Weight 75.455, kg, PRN Pain Score 7-10, Start date: 02/21/21 14:59:00 CDT, Duration: 4 doses or times, Stop date: Limited # of times Flumazenil 2020-0 No 0.2 mg, Ramses emanuel 02-21 Route: l 19:59: IVP, PRN, Dosing Weight 75.455, kg, PRN Benzodiaze pine Reversal, Initial dose, Start date: 02/21/21 14:59:00 CDT, Duration: 30 day, Stop date: 03/23/21 14:58:00 CDT Naloxone 2020-0 No 0.4 mg, Memori a 02-21 Route: l 19:59: IVP, [place] 00 Q2MIN, Dosing Weight 75.455, kg, PRN Narcotic Reversal, Start date: 02/21/21 14:59:00 CDT, Duration: 8 doses or times, Stop date: Limited # of times Meperidine 2020-0 No 12.5 mg, Mem oria 02-21 Route: l 19:59: IVP, [place] 00 Q30Min, Dosing Weight 75.455, kg, PRN Other -See Comment, For shivering, Start date: 02/21/21 14:59:00 CDT, Duration: 2 doses or times, Stop date: Limited # of times Ondansetron 2020-0 No 4 mg, Memor ia 02-21 Route: l 19:59: IVP, ONCE, Dosing Weight 75.455, kg, PRN Nausea & Vomiting, Start date: 02/21/21 14:59:00 CDT glycopyrrol 2020-0 No Route: IV, Memoria ate (ANES) 02-21 Drug form: l 19:16: INJ, ONCE, Stop date: 02/21/21 14:16:00 CDT neostigmine 0 No Route: IV, Memoria (ANES) 02-21 Drug form: l 19:16: INJ, ONCE, Stop date: 02/21/21 14:16:00 CDT glycopyrrol 2020-0 No Route: IV, Memoria ate (ANES) 02-21 Drug form: l 19:16: INJ, ONCE, Stop date: 02/21/21 14:16:00 CDT neostigmine 0 No Route: IV, Memoria (ANES) 02-21 Drug form: l 19:16: INJ, ONCE, Stop date: 02/21/21 14:16:00 CDT Acetaminoph 2020-0 Yes 1 - 2 tab, Memoria en 300 MG / 6-07 PO, Q6H, l Codeine 19:06: PRN Pain, Monse nn Phosphate 00 X 4 day, # 30 MG Oral 32 tab, 0 Tablet Refill(s) [Tylenol with Codeine #3] Acetaminoph 0 Yes 1 - 2 tab, Memoria en 300 MG / 6-07 PO, Q6H, l Codeine 19:06: PRN Pain, M[place] nn Phosphate 00 X 4 day, # 30 MG Oral 32 tab, 0 Tablet Refill(s) [Tylenol with Codeine #3] ondansetron No Route: IV, Memoria (ANES) 02-21 Drug form: l 18:32: INJ, ONCE, Stop date: 02/21/21 13:32:00 CDT dexamethaso 2020-0 No Route: IV, Memoria ne (ANES) 02-21 Drug form: l 18:32: INJ, ONCE, Stop date: 02/21/21 13:32:00 CDT ondansetron 2020-0 No Route: IV, Memoria (ANES) 02-21 Drug form: l 18:32: INJ, ONCE, Stop date: 02/21/21 13:32:00 CDT dexamethaso 2020-0 No Route: IV, Memoria ne (ANES) 02-21 Drug form: l 18:32: INJ, ONCE, Stop date: 02/21/21 13:32:00 CDT lidocaine 202-0 No Route: IV, Me moria (ANES) 6- Drug form: l 18:27: INJ, ONCE, Stop date: 02/21/21 13:27:00 CDT fentaNYL 202-0 No Route: IV, Mem oria (ANES) 6- Drug form: l 18:27: INJ, ONCE, Stop date: 02/21/21 13:27:00 CDT propofol 202-0 No Route: IV, Mem oria (ANES) 6- Drug form: l 18:27: INJ, ONCE, Stop date: 02/21/21 13:27:00 CDT rocuronium 2020-0 No Route: IV, M emoria (ANES) 6- Drug form: l 18:27: INJ, ONCE, Stop date: 02/21/21 13:27:00 CDT ceFAZolin 2020-0 No Route: IV, Me moria (ANES) 6- Drug form: l 18:27: INJ, ONCE, Stop date: 02/21/21 13:27:00 CDT lidocaine 2020-0 No Route: IV, Me moria (ANES) 6-07 Drug form: l 18:27: INJ, ONCE, Stop date: 02/21/21 13:27:00 CDT fentaNYL 202-0 No Route: IV, Mem oria (ANES) 6- Drug form: l 18:27: INJ, ONCE, Stop date: 02/21/21 13:27:00 CDT propofol 202-0 No Route: IV, Mem oria (ANES) 6- Drug form: l 18:27: INJ, ONCE, Stop date: 02/21/21 13:27:00 CDT rocuronium 2020-0 No Route: IV, M emoria (ANES) 6-07 Drug form: l 18:27: INJ, ONCE, Stop date: 02/21/21 13:27:00 CDT ceFAZolin 202-0 No Route: IV, Me moria (ANES) 6-07 Drug form: l 18:27: INJ, ONCE, [place] 00 Stop date: 02/21/21 13:27:00 CDT Lactated No Route: IV, Mem oria Ringers 6-07 Total l Injection 17:37: Volume: Monse nn IV (ANES) 00 1,000, 1000 mL Start date: 02/21/21 12:37:00 CDT, Stop date: 02/21/21 13:37:00 CDT Lactated No Route: IV, Mem oria Ringers 6-07 Total l Injection 17:37: Volume: Monse nn IV (ANES) 00 1,000, 1000 mL Start date: 02/21/21 12:37:00 CDT, Stop date: 02/21/21 13:37:00 CDT 72 HR No 1 patch, Memoria Scopolamine 6-07 Route: l 0.0139 16:00: TOP, Drug Beny n MG/HR 00 Form: Transdermal ERFILM, Patch Dosing Weight 75.455, kg, PRE OP, Start date: 02/21/21 11:00:00 CDT, Duration: 30 day, Stop date: 03/23/21 10:59:00 CDT 72 HR No 1 patch, Memoria Scopolamine 6-07 Route: l 0.0139 16:00: TOP, Drug Beny n MG/HR 00 Form: Transdermal ERFILM, Patch Dosing Weight 75.455, kg, PRE OP, Start date: 02/21/21 11:00:00 CDT, Duration: 30 day, Stop date: 03/23/21 10:59:00 CDT heparin No Route: Memoria sodium, 6-07 SUB-Q, l porcine 15:44: ONCE, [place] 2500 UNT/ML 00 Dosing Injectable Weight Solution 75.455, kg, Start date: 02/21/21 10:44:00 CDT, Stop date: 02/21/21 10:44:00 CDT heparin No Route: Memoria sodium, 6-07 SUB-Q, l porcine 15:44: ONCE, [place] 2500 UNT/ML 00 Dosing Injectable Weight Solution 75.455, kg, Start date: 02/21/21 10:44:00 CDT, Stop date: 02/21/21 10:44:00 CDT Calcium 1-0 No 1,000 mL, Memor ia Chloride 6-07 Rate: 75 l 0.0014 15:23: ml/hr, [place] MEQ/ML / 00 Infuse Potassium over: 13.3 Chloride hr, Route: 0.004 IV, Dosing MEQ/ML / Weight Sodium 75.455 kg, Chloride Total 0.103 Volume: MEQ/ML / 1,000, Sodium Start Lactate date: 0.028 02/21/21 MEQ/ML 10:23:00 Injectable CDT, Solution Duration: 1 day, Stop date: 02/22/21 10:22:00 CDT, BSA: 1.8 m2, 0 Calcium 1-0 No 1,000 mL, Memor ia Chloride 6- Rate: 75 l 0.0014 15:23: ml/hr, [place] MEQ/ML / 00 Infuse Potassium over: 13.3 Chloride hr, Route: 0.004 IV, Dosing MEQ/ML / Weight Sodium 75.455 kg, Chloride Total 0.103 Volume: MEQ/ML / 1,000, Sodium Start Lactate date: 0.028 02/21/21 MEQ/ML 10:23:00 Injectable CDT, Solution Duration: 1 day, Stop date: 02/22/21 10:22:00 CDT, BSA: 1.8 m2, 0 acetaminoph 2020-0 Yes Univer s en-codeine 6-07 [...] 00:00: [place] tablet 00 Medical Branch acetaminoph 0 Yes Univer s en-codeine 6-07 ity of 300-30 mg 00:00: [place] tablet [facility] acetaminoph 0 Yes Univer s en-codeine 6-07 ity of 300-30 mg 00:00: [place] tablet [facility] acetaminoph 0 Yes Univer s en-codeine 6-07 ity of 300-30 mg 00:00: [place] tablet [facility] acetaminoph 0 Yes Univer s en-codeine 6-07 ity of 300-30 mg 00:00: [place] tablet [facility] acetaminoph 0 Yes Univer s en-codeine 6-07 ity of 300-30 mg 00:00: [place] tablet [facility] Trazodone 0 Yes 100 mg, Memor ia 6-03 PO, l 19:16: Bedtime, 0 Refill(s) Trazodone 0 Yes 100 mg, Memor ia 6-03 PO, l 19:16: Bedtime, 0 Refill(s) Hydrochloro 0 Yes 1 tab, PO, Memoria thiazide 25 6-03 Daily, l MG / 19:15: NEEDED FOR Triamterene 00 LEG 37.5 MG SWELING, 0 Oral Tablet Refill(s) Hydrochloro 0 Yes 1 tab, PO, Memoria thiazide 25 6-03 Daily, l MG / 19:15: NEEDED FOR [place] Triamterene 00 LEG 37.5 MG SWELING, 0 Oral Tablet Refill(s) clopidogrel 0 Yes 75 mg, PO, Memoria 6-03 0 l 19:13: Refill(s) clopidogrel 2020-0 Yes 75 mg, PO, Memoria 6-03 0 l 19:13: Refill(s) Dexilant 0 Yes 60 mg, PO, Mem oria 6-03 Daily, 0 l 19:12: Refill(s) Dexilant 0 Yes 60 mg, PO, Mem oria 6-03 Daily, 0 l 19:12: Refill(s) Thyroxine 0 Yes 50 Memoria 6-03 microgram, l 19:11: PO, Daily, 0 Refill(s) Lisinopril 2020-0 Yes 20 mg, PO, M emoria 6-03 Daily, 0 l 19:11: Refill(s) Thyroxine 2020-0 Yes 50 Memoria 6-03 microgram, l 19:11: PO, Daily, 0 Refill(s) Lisinopril 2020-0 Yes 20 mg, PO, M emoria 6-03 Daily, 0 l 19:11: Refill(s) Metformin 2020-0 Yes 500 mg, Memor ia 6-03 PO, BID, 0 l 19:10: Refill(s) Pravastatin 2020-0 Yes 10 mg, PO, Memoria 6-03 Bedtime, # l 19:10: 30 tab, 0 Refill(s) Metformin 2020-0 Yes 500 mg, Memor ia 6-03 PO, BID, 0 l 19:10: Refill(s) Pravastatin 2020-0 Yes 10 mg, PO, Memoria 6-03 Bedtime, # l 19:10: 30 tab, 0 Refill(s) hydrOXYzine 2020-0 Yes [id number] 25mg Take 1 [facility] 25 mg 5-24 tablet by ity of tablet 00:00: mouth [place] 00 every 6 Medical (six) Branch hours as needed for Itching. triamcinolo 2021-0 Yes [id number] Apply to Univers ne 5-24 area(s) 2 ity of acetonide 00:00: (two) [place] 0.1 % cream 00 times Medical daily. Branch hydrOXYzine 2021-0 Yes [id number] 25mg Take 1 [facility] 25 mg 5-24 tablet by ity of tablet 00:00: mouth [place] 00 every 6 Medical (six) Branch hours as needed for Itching. triamcinolo 2021-0 Yes [id number] Apply to Univers ne 5-24 area(s) 2 ity of acetonide 00:00: (two) [place] 0.1 % cream 00 times Medical daily. Branch hydrOXYzine 2021-0 Yes [id number] 25mg Take 1 [facility] 25 mg 5-24 tablet by ity of tablet 00:00: mouth [place] 00 every 6 Medical (six) Branch hours as needed for Itching. triamcinolo 2021-0 Yes [id number] Apply to [facility] ne 5-24 area(s) 2 ity of acetonide 00:00: (two) [place] 0.1 % cream 00 times Medical daily. Branch hydrOXYzine 2021-0 Yes [id number] 25mg Take 1 [facility] 25 mg 5-24 tablet by ity of tablet 00:00: mouth [place] 00 every 6 Medical (six) Branch hours as needed for Itching. triamcinolo 2021-0 Yes [id number] Apply to Univers ne 5-24 area(s) 2 ity of acetonide 00:00: (two) [place] 0.1 % cream 00 times Medical daily. Branch hydrOXYzine 2021-0 Yes [id number] 25mg Take 1 [facility] 25 mg 5-24 tablet by ity of tablet 00:00: mouth [place] 00 every 6 Medical (six) Branch hours as needed for Itching. triamcinolo 2021-0 Yes [id number] Apply to Univers ne 5-24 area(s) 2 ity of acetonide 00:00: (two) [place] 0.1 % cream 00 times Medical daily. Branch hydrOXYzine 2021-0 Yes [id number] 25mg Take 1 [facility] 25 mg 5-24 tablet by ity of tablet 00:00: mouth [place] 00 every 6 Medical (six) Branch hours as needed for Itching. triamcinolo 2021-0 Yes [id number] Apply to Univers ne 5-24 area(s) 2 ity of acetonide 00:00: (two) [place] 0.1 % cream 00 times Medical daily. Branch hydrOXYzine 2021-0 Yes [id number] 25mg Take 1 [facility] 25 mg 5-24 tablet by ity of tablet 00:00: mouth [place] 00 every 6 Medical (six) Branch hours as needed for Itching. triamcinolo 2021-0 Yes [id number] Apply to Univers ne 5-24 area(s) 2 ity of acetonide 00:00: (two) [place] 0.1 % cream 00 times Medical daily. Branch hydrOXYzine 2021-0 Yes [id number] 25mg Take 1 [facility] 25 mg 5-24 tablet by ity of tablet 00:00: mouth [place] 00 every 6 Medical (six) Branch hours as needed for Itching. triamcinolo 2021-0 Yes [id number] Apply to Univers ne 5-24 area(s) 2 ity of acetonide 00:00: (two) [place] 0.1 % cream 00 times Medical daily. Branch hydrOXYzine 1-0 Yes [id number] 25mg Take 1 [facility] 25 mg 5-24 tablet by ity of tablet 00:00: mouth [place] 00 every 6 Medical (six) Branch hours as needed for Itching. triamcinolo 2021-0 Yes [id number] Apply to Univers ne 5-24 area(s) 2 ity of acetonide 00:00: (two) [place] 0.1 % cream 00 times Medical daily. Branch hydrOXYzine 1-0 Yes [id number] 25mg Take 1 [facility] 25 mg 5-24 tablet by ity of tablet 00:00: mouth [place] 00 every 6 Medical (six) Branch hours as needed for Itching. triamcinolo 1-0 Yes [id number] Apply to Univers ne 5-24 area(s) 2 ity of acetonide 00:00: (two) [place] 0.1 % cream 00 times Medical daily. Branch hydrOXYzine 1-0 Yes [id number] 25mg Take 1 [facility] 25 mg 5-24 tablet by ity of tablet 00:00: mouth [place] 00 every 6 Medical (six) Branch hours as needed for Itching. triamcinolo 1-0 Yes [id number] Apply to Univers ne 5-24 area(s) 2 ity of acetonide 00:00: (two) [place] 0.1 % cream 00 times Medical daily. Branch hydrOXYzine 1-0 Yes [id number] 25mg Take 1 [facility] 25 mg 5-24 tablet by ity of tablet 00:00: mouth [place] 00 every 6 Medical (six) Branch hours as needed for Itching. triamcinolo 2021-0 Yes [id number] Apply to Univers ne 5-24 area(s) 2 ity of acetonide 00:00: (two) [place] 0.1 % cream 00 times Medical daily. Branch hydrOXYzine 2021-0 Yes [id number] 25mg Take 1 [facility] 25 mg 5-24 tablet by ity of tablet 00:00: mouth [place] 00 every 6 Medical (six) Branch hours as needed for Itching. triamcinolo 2021-0 Yes [id number] Apply to Univers ne 5-24 area(s) 2 ity of acetonide 00:00: (two) [place] 0.1 % cream 00 times Medical daily. Branch hydrOXYzine 2021-0 Yes [id number] 25mg Take 1 [facility] 25 mg 5-24 tablet by ity of tablet 00:00: mouth [place] 00 every 6 Medical (six) Branch hours as needed for Itching. triamcinolo 2021-0 Yes [id number] Apply to Univers ne 5-24 area(s) 2 ity of acetonide 00:00: (two) [place] 0.1 % cream 00 times Medical daily. Branch hydrOXYzine 2021-0 Yes [id number] 25mg Take 1 [facility] 25 mg 5-24 tablet by ity of tablet 00:00: mouth [place] 00 every 6 Medical (six) Branch hours as needed for Itching. triamcinolo 2021-0 Yes [id number] Apply to Univers ne 5-24 area(s) 2 ity of acetonide 00:00: (two) [place] 0.1 % cream 00 times Medical daily. Branch hydrOXYzine 1-0 Yes [id number] 25mg Take 1 [facility] 25 mg 5-24 tablet by ity of tablet 00:00: mouth [place] 00 every 6 Medical (six) Branch hours as needed for Itching. triamcinolo 2021-0 Yes [id number] Apply to Univers ne 5-24 area(s) 2 ity of acetonide 00:00: (two) [place] 0.1 % cream 00 times Medical daily. Branch hydrOXYzine 2021-0 Yes [id number] 25mg Take 1 [facility] 25 mg 5-24 tablet by ity of tablet 00:00: mouth [place] 00 every 6 Medical (six) Branch hours as needed for Itching. triamcinolo 2021-0 Yes [id number] Apply to Univers ne 5-24 area(s) 2 ity of acetonide 00:00: (two) [place] 0.1 % cream 00 times Medical daily. Branch hydrOXYzine 2021-0 Yes [id number] 25mg Take 1 [facility] 25 mg 5-24 tablet by ity of tablet 00:00: mouth [place] 00 every 6 Medical (six) Branch hours as needed for Itching. triamcinolo 2021-0 Yes [id number] Apply to Univers ne 5-24 area(s) 2 ity of acetonide 00:00: (two) [place] 0.1 % cream 00 times Medical daily. Branch Magnesium Yes Take by Unive rs 250 mg Tab 5-21 mouth. ity of 22:05: [place] [address] Medical Branch vitamin B-6 Yes 100mg Take 100 U nivers (VITAMIN 5-21 mg by ity of B-6) 100 mg 22:05: mouth [place] tablet 48 daily. Medical Branch CALCIUM Yes Take by Univers CARBONATE/V 5-21 mouth. ity of ITAMIN D3 22:05: [place] (VITAMIN 48 Medical D-3 ORAL) Branch Magnesium Yes Take by Unive rs 250 mg Tab 5-21 mouth. ity of 22:05: [place] [address] Medical Branch vitamin B-6 Yes 100mg Take 100 U nivers (VITAMIN 5-21 mg by ity of B-6) 100 mg 22:05: mouth [place] tablet 48 daily. Medical Branch CALCIUM Yes Take by Univers CARBONATE/V 5-21 mouth. ity of ITAMIN D3 22:05: [place] (VITAMIN 48 Medical D-3 ORAL) Branch Magnesium Yes Take by Unive rs 250 mg Tab 5-21 mouth. ity of 22:05: [place] [address] [facility] Branch vitamin B-6 Yes 100mg Take 100 U nivers (VITAMIN 5-21 mg by ity of B-6) 100 mg 22:05: mouth [place] tablet 48 daily. Medical Branch CALCIUM Yes Take by Univers CARBONATE/V 5-21 mouth. ity of ITAMIN D3 22:05: [place] (VITAMIN 48 Medical D-3 ORAL) Branch Magnesium Yes Take by Unive rs 250 mg Tab 5-21 mouth. ity of 22:05: [place] [address] [facility] Branch vitamin B-6 Yes 100mg Take 100 U nivers (VITAMIN 5-21 mg by ity of B-6) 100 mg 22:05: mouth [place] tablet 48 daily. Medical Branch CALCIUM Yes Take by [facility] CARBONATE/V 5-21 mouth. ity of ITAMIN D3 22:05: [place] (VITAMIN 48 Medical D-3 ORAL) Branch Magnesium Yes Take by Unive rs 250 mg Tab 5-21 mouth. ity of 22:05: [place] 48 [facility] vitamin B-6 Yes 100mg Take 100 U nivers (VITAMIN 5-21 mg by ity of B-6) 100 mg 22:05: mouth [place] tablet 48 daily. Medical Branch CALCIUM Yes Take by [facility] CARBONATE/V 5-21 mouth. ity of ITAMIN D3 22:05: [place] (VITAMIN 48 Medical D-3 ORAL) Branch Magnesium Yes Take by Unive rs 250 mg Tab 5-21 mouth. ity of 22:05: [place] [address] [facility] Branch vitamin B-6 Yes 100mg Take 100 [facility] nivers (VITAMIN 5-21 mg by ity of B-6) 100 mg 22:05: mouth [place] tablet 48 daily. Medical Branch CALCIUM Yes Take by [facility] CARBONATE/V 5-21 mouth. ity of ITAMIN D3 22:05: [place] (VITAMIN 48 Medical D-3 ORAL) Branch Magnesium Yes Take by [facility] rs 250 mg Tab 5-21 mouth. ity of 22:05: [place] [address] Medical Branch vitamin B-6 Yes 100mg Take 100 [facility] (VITAMIN 5-21 mg by ity of B-6) 100 mg 22:05: mouth [place] tablet 48 daily. Medical Branch CALCIUM Yes Take by [facility] CARBONATE/V 5-21 mouth. ity of ITAMIN D3 22:05: [place] (VITAMIN 48 Medical D-3 ORAL) Branch Magnesium Yes Take by [facility] 250 mg Tab 5-21 mouth. ity of 22:05: [place] [address] Medical Branch vitamin B-6 Yes 100mg Take 100 [facility] (VITAMIN 5-21 mg by ity of B-6) 100 mg 22:05: mouth [place] tablet 48 daily. Medical Branch CALCIUM Yes Take by [facility] CARBONATE/V 5-21 mouth. ity of ITAMIN D3 22:05: [place] (VITAMIN 48 Medical D-3 ORAL) Branch Magnesium Yes Take by [facility] 250 mg Tab 5-21 mouth. ity of 22:05: [place] [address] Medical Branch vitamin B-6 Yes 100mg Take 100 [facility] (VITAMIN 5-21 mg by ity of B-6) 100 mg 22:05: mouth [place] tablet 48 daily. Medical Branch CALCIUM Yes Take by [facility] CARBONATE/V 5-21 mouth. ity of ITAMIN D3 22:05: [place] (VITAMIN 48 Medical D-3 ORAL) Branch Magnesium Yes Take by [facility] 250 mg Tab 5-21 mouth. ity of 22:05: [place] [address] Medical Branch vitamin B-6 Yes 100mg Take 100 [facility] (VITAMIN 5-21 mg by ity of B-6) 100 mg 22:05: mouth [place] tablet 48 daily. Medical Branch CALCIUM Yes Take by [facility] CARBONATE/V 5-21 mouth. ity of ITAMIN D3 22:05: [place] (VITAMIN 48 Medical D-3 ORAL) Branch Magnesium Yes Take by [facility] 250 mg Tab 5-21 mouth. ity of 22:05: [place] [address] Medical Branch vitamin B-6 Yes 100mg Take 100 [facility] (VITAMIN 5-21 mg by ity of B-6) 100 mg 22:05: mouth [place] tablet 48 daily. Medical Branch CALCIUM Yes Take by [facility] CARBONATE/V 5-21 mouth. ity of ITAMIN D3 22:05: [place] (VITAMIN 48 Medical D-3 ORAL) Branch Magnesium Yes Take by [facility] 250 mg Tab 5-21 mouth. ity of 22:05: [place] [address] Medical Branch vitamin B-6 Yes 100mg Take 100 [facility] (VITAMIN 5-21 mg by ity of B-6) 100 mg 22:05: mouth [place] tablet 48 daily. Medical Branch CALCIUM Yes Take by [facility] CARBONATE/V 5-21 mouth. ity of ITAMIN D3 22:05: [place] (VITAMIN 48 Medical D-3 ORAL) Branch Magnesium Yes Take by [facility] 250 mg Tab 5-21 mouth. ity of 22:05: [place] [address] Medical Branch vitamin B-6 Yes 100mg Take 100 [facility] (VITAMIN 5-21 mg by ity of B-6) 100 mg 22:05: mouth [place] tablet 48 daily. Medical Branch CALCIUM Yes Take by [facility] CARBONATE/V 5-21 mouth. ity of ITAMIN D3 22:05: [place] (VITAMIN 48 Medical D-3 ORAL) Branch Magnesium Yes Take by [facility] rs 250 mg Tab 5-21 mouth. ity of 22:05: [place] [address] Medical Branch vitamin B-6 Yes 100mg Take 100 [facility] (VITAMIN 5-21 mg by ity of B-6) 100 mg 22:05: mouth [place] tablet 48 daily. Medical Branch CALCIUM Yes Take by [facility] CARBONATE/V 5-21 mouth. ity of ITAMIN D3 22:05: [place] (VITAMIN 48 Medical D-3 ORAL) Branch Magnesium Yes Take by [facility] 250 mg Tab 5-21 mouth. ity of 22:05: [place] [address] Medical Branch vitamin B-6 Yes 100mg Take 100 [facility] (VITAMIN 5-21 mg by ity of B-6) 100 mg 22:05: mouth [place] tablet 48 daily. Medical Branch CALCIUM Yes Take by [facility] CARBONATE/V 5-21 mouth. ity of ITAMIN D3 22:05: [place] (VITAMIN 48 Medical D-3 ORAL) Branch alcaftadine Yes Place in [facility] [place] (LASTACAFT) 5-21 each eye. ity of 0.25 % Drop 22:05: [place] [address] [facility] Branch CYCLOSPORIN Yes Place in [facility] [place] [facility] (RESTASIS 5-21 each eye. ity of OPHTHALMIC) 22:05: [place] [address] Medical Branch vitamin E Yes 1000U Take 1,000 [facility] 1,000 unit 5-21 Units by ity o f capsule 22:05: mouth [place] 47 daily. Medical Branch alcaftadine Yes Place in [facility] [place] (LASTACAFT) 5-21 each eye. ity of 0.25 % Drop 22:05: [place] [address] [facility] Branch CYCLOSPORIN Yes Place in [facility] [place] [facility] (RESTASIS 5-21 each eye. ity of OPHTHALMIC) 22:05: [place] [address] [facility] Branch vitamin E Yes 1000U Take 1,000 [facility] 1,000 unit 5-21 Units by ity o f capsule 22:05: mouth [place] 47 daily. Medical Branch alcaftadine [address] [facility] [place] (LASTACAFT) 5-21 each eye. ity of 0.25 % Drop 22:05: [place] [address] [facility] Branch CYCLOSPORIN Yes Place in [facility] [place] [facility] (RESTASIS 5-21 each eye. ity of OPHTHALMIC) 22:05: [place] [address] [facility] Branch vitamin E 2020-0 Yes 1000U Take 1,000 [facility] 1,000 unit 5-21 Units by ity o f capsule 22:05: mouth [place] [address] daily. Medical Branch alcaftadine 2020-[address] in [facility] [place] (LASTACAFT) 5-21 each eye. ity of 0.25 % Drop 22:05: [place] [address] [facility] Branch CYCLOSPORIN 2020-[address] in [facility] [place] [facility] (RESTASIS 5-21 each eye. ity of OPHTHALMIC) 22:05: [place] [address] [facility] Branch vitamin E 2020-0 Yes 1000U Take 1,000 [facility] 1,000 unit 5-21 Units by ity o f capsule 22:05: mouth [place] [address] daily. Medical Branch alcaftadine [address] [facility] [place] (LASTACAFT) 5-21 each eye. ity of 0.25 % Drop 22:05: [place] [address] [facility] Branch CYCLOSPORIN [address] [facility] [place] [facility] (RESTASIS 5-21 each eye. ity of OPHTHALMIC) 22:05: [place] [address] [facility] Branch vitamin E 0 Yes 1000U Take 1,000 [facility] 1,000 unit 5-21 Units by ity o f capsule 22:05: mouth [place] [address] daily. Medical Branch alcaftadine [address] [facility] [place] (LASTACAFT) 5-21 each eye. ity of 0.25 % Drop 22:05: [place] [address] [facility] Branch CYCLOSPORIN 2020-[address] in [facility] [place] [facility] (RESTASIS 5-21 each eye. ity of OPHTHALMIC) 22:05: [place] [address] [facility] Branch vitamin E 2020-0 Yes 1000U Take 1,000 [facility] 1,000 unit 5-21 Units by ity o f capsule 22:05: mouth [place] [address] daily. Medical Branch alcaftadine 2020-[address] in [facility] [place] (LASTACAFT) 5-21 each eye. ity of 0.25 % Drop 22:05: [place] [address] [facility] Branch CYCLOSPORIN 2020-[address] in [place] [facility] (RESTASIS 5-21 each eye. ity of OPHTHALMIC) 22:05: [place] [address] [facility] Branch vitamin E 2020-0 Yes 1000U Take 1,000 [facility] 1,000 unit 5-21 Units by ity o f capsule 22:05: mouth [place] [address] daily. Medical Branch alcaftadine 2020-[address] in [facility] [place] (LASTACAFT) 5-21 each eye. ity of 0.25 % Drop 22:05: [place] [address] [facility] Branch CYCLOSPORIN 2020-[address] in [place] [facility] (RESTASIS 5-21 each eye. ity of OPHTHALMIC) 22:05: [place] [address] [facility] Branch vitamin E 2020-0 Yes 1000U Take 1,000 [facility] 1,000 unit 5-21 Units by ity o f capsule 22:05: mouth [place] [address] daily. Medical Branch alcaftadine 2020-[address] in [facility] [place] (LASTACAFT) 5-21 each eye. ity of 0.25 % Drop 22:05: [place] [address] [facility] Branch CYCLOSPORIN 2020-[address] in [place] [facility] (RESTASIS 5-21 each eye. ity of OPHTHALMIC) 22:05: [place] [address] [facility] Branch vitamin E 2020-0 Yes 1000U Take 1,000 [facility] 1,000 unit 5-21 Units by ity o f capsule 22:05: mouth [place] [address] daily. Medical Branch alcaftadine 2020-[address] in [facility] [place] (LASTACAFT) 5-21 each eye. ity of 0.25 % Drop 22:05: [place] [address] [facility] Branch CYCLOSPORIN 2020-[address] in [place] [facility] (RESTASIS 5-21 each eye. ity of OPHTHALMIC) 22:05: [place] [address] [facility] Branch vitamin E 2020-0 Yes 1000U Take 1,000 [facility] 1,000 unit 5-21 Units by ity o f capsule 22:05: mouth [place] [address] daily. Medical Branch alcaftadine 2020-[address] in [place] (LASTACAFT) 5-21 each eye. ity of 0.25 % Drop 22:05: [place] [address] [facility] Branch CYCLOSPORIN 2020-[address] in [place] [facility] (RESTASIS 5-21 each eye. ity of OPHTHALMIC) 22:05: [place] [address] [facility] Branch vitamin E 2020-0 Yes 1000U Take 1,000 [facility] 1,000 unit 5-21 Units by ity o f capsule 22:05: mouth [place] [address] daily. Medical Branch alcaftadine 2020-[address] in [place] (LASTACAFT) 5-21 each eye. ity of 0.25 % Drop 22:05: [place] [address] [facility] Branch CYCLOSPORIN [address] [place] [facility] (RESTASIS 5-21 each eye. ity of OPHTHALMIC) 22:05: [place] [address] [facility] Branch vitamin E 0 Yes 1000U Take 1,000 [facility] 1,000 unit 5-21 Units by ity o f capsule 22:05: mouth [place] 47 daily. Medical Branch alcaftadine [address] [place] (LASTACAFT) 5-21 each eye. ity of 0.25 % Drop 22:05: [place] [address] [facility] Branch CYCLOSPORIN Yes Place in [place] [facility] (RESTASIS 5-21 each eye. ity of OPHTHALMIC) 22:05: [place] [address] [facility] Branch vitamin E Yes 1000U Take 1,000 [facility] 1,000 unit 5-21 Units by ity o f capsule 22:05: mouth [place] [address] daily. Medical Branch alcaftadine Yes Place in [place] (LASTACAFT) 5-21 each eye. ity of 0.25 % Drop 22:05: [place] [address] [facility] Branch CYCLOSPORIN Yes Place in [place] [facility] (RESTASIS 5-21 each eye. ity of OPHTHALMIC) 22:05: [place] [address] [facility] Branch vitamin E Yes 1000U Take 1,000 [facility] 1,000 unit 5-21 Units by ity o f capsule 22:05: mouth [place] [address] daily. Medical Branch alcaftadine Yes Place in [place] (LASTACAFT) 5-21 each eye. ity of 0.25 % Drop 22:05: [place] [address] [facility] Branch CYCLOSPORIN [address] [place] (RESTASIS 5-21 each eye. ity of OPHTHALMIC) 22:05: [place] [address] [facility] Branch vitamin E 0 Yes 1000U Take 1,000 [facility] 1,000 unit 5-21 Units by ity o f capsule 22:05: mouth [place] 47 daily. Medical Branch Magnesium 0 Yes Take by [facility] rs 250 mg Tab 5-21 mouth. ity of 17:05: [place] [address] [facility] Branch vitamin B-6 0 Yes 100mg Take 100 [facility] (VITAMIN 5-21 mg by ity of B-6) 100 mg 17:05: mouth [place] tablet 48 daily. Medical Branch CALCIUM Yes Take by [facility] CARBONATE/V 5-21 mouth. ity of ITAMIN D3 17:05: [place] (VITAMIN 48 Medical D-3 ORAL) Branch Magnesium Yes Take by [facility] rs 250 mg Tab 5-21 mouth. ity of 17:05: [place] [address] [facility] Branch vitamin B-6 Yes 100mg Take 100 [facility] (VITAMIN 5-21 mg by ity of B-6) 100 mg 17:05: mouth [place] tablet 48 daily. Medical Branch CALCIUM Yes Take by [facility] CARBONATE/V 5-21 mouth. ity of ITAMIN D3 17:05: [place] (VITAMIN 48 Medical D-3 ORAL) Branch Magnesium Yes Take by [facility] rs 250 mg Tab 5-21 mouth. ity of 17:05: [place] [address] [facility] Branch vitamin B-6 Yes 100mg Take 100 [facility] (VITAMIN 5-21 mg by ity of B-6) 100 mg 17:05: mouth [place] tablet 48 daily. Medical Branch CALCIUM Yes Take by [facility] CARBONATE/V 5-21 mouth. ity of ITAMIN D3 17:05: [place] (VITAMIN 48 Medical D-3 ORAL) Branch Magnesium Yes Take by [facility] 250 mg Tab 5-21 mouth. ity of 17:05: [place] [address] [facility] Branch vitamin B-6 Yes 100mg Take 100 [facility] (VITAMIN 5-21 mg by ity of B-6) 100 mg 17:05: mouth [place] tablet 48 daily. Medical Branch CALCIUM Yes Take by [facility] CARBONATE/V 5-21 mouth. ity of ITAMIN D3 17:05: [place] (VITAMIN 48 Medical D-3 ORAL) Branch Magnesium Yes Take by [facility] 250 mg Tab 5-21 mouth. ity of 17:05: [place] [address] [facility] Branch vitamin B-6 Yes 100mg Take 100 [facility] (VITAMIN 5-21 mg by ity of B-6) 100 mg 17:05: mouth [place] tablet 48 daily. Medical Branch CALCIUM Yes Take by [facility] CARBONATE/V 5-21 mouth. ity of ITAMIN D3 17:05: [place] (VITAMIN 48 Medical D-3 ORAL) Branch alcaftadine 2020-[address] in [place] (LASTACAFT) 5-21 each eye. ity of 0.25 % Drop 17:05: [place] [address] [facility] Branch CYCLOSPORIN 2020-[address] in [place] [facility] (RESTASIS 5-21 each eye. ity of OPHTHALMIC) 17:05: [place] [address] [facility] Branch vitamin E 2020-0 Yes 1000U Take 1,000 [facility] 1,000 unit 5-21 Units by ity o f capsule 17:05: mouth [place] [address] daily. Medical Branch alcaftadine 2020-[address] in [place] (LASTACAFT) 5-21 each eye. ity of 0.25 % Drop 17:05: [place] [address] [facility] Branch CYCLOSPORIN 2020-[address] in [place] [facility] (RESTASIS 5-21 each eye. ity of OPHTHALMIC) 17:05: [place] [address] [facility] Branch vitamin E 2020-0 Yes 1000U Take 1,000 [facility] 1,000 unit 5-21 Units by ity o f capsule 17:05: mouth [place] [address] daily. Medical Branch alcaftadine 2020-[address] in [place] (LASTACAFT) 5-21 each eye. ity of 0.25 % Drop 17:05: [place] [address] [facility] Branch CYCLOSPORIN 2020-[address] in [place] [facility] (RESTASIS 5-21 each eye. ity of OPHTHALMIC) 17:05: [place] [address] [facility] Branch vitamin E 2020-0 Yes 1000U Take 1,000 [facility] 1,000 unit 5-21 Units by ity o f capsule 17:05: mouth [place] [address] daily. Medical Branch alcaftadine 2020-[address] in [place] (LASTACAFT) 5-21 each eye. ity of 0.25 % Drop 17:05: [place] [address] [facility] Branch CYCLOSPORIN 2020-[address] in [place] [facility] (RESTASIS 5-21 each eye. ity of OPHTHALMIC) 17:05: [place] [address] [facility] Branch vitamin E 2020-0 Yes 1000U Take 1,000 [facility] 1,000 unit 5-21 Units by ity o f capsule 17:05: mouth [place] [address] daily. Medical Branch alcaftadine 2020-[address] in [place] (LASTACAFT) 5-21 each eye. ity of 0.25 % Drop 17:05: Medical Branch CYCLOSPORIN Yes Place in [place] [facility] (RESTASIS 5-21 each eye. ity of OPHTHALMIC) 17:05: Medical Branch vitamin E Yes 1000U Take 1,000 [facility] 1,000 unit 5-21 Units by ity o f capsule 17:05: [facility] daily. Medical Branch lisinopriL Yes [id number] 10mg Take 0.5 [facility] 20 mg 5-21 tablets by ity of tablet 00:00: mouth [place] 00 daily. Medical Branch lisinopriL Yes [id number] 10mg Take 0.5 [facility] 20 mg 5-21 tablets by ity of tablet 00:00: mouth [place] 00 daily. Medical Branch lisinopriL Yes [id number] 10mg Take 0.5 [facility] 20 mg 5-21 tablets by ity of tablet 00:00: mouth [place] 00 daily. Medical Branch lisinopriL Yes [id number] 10mg Take 0.5 [facility] 20 mg 5-21 tablets by ity of tablet 00:00: mouth [place] 00 daily. Medical Branch lisinopriL Yes [id number] 10mg Take 0.5 [facility] 20 mg 5-21 tablets by ity of tablet 00:00: mouth [place] 00 daily. Medical Branch lisinopriL Yes [id number] 10mg Take 0.5 [facility] 20 mg 5-21 tablets by ity of tablet 00:00: mouth [place] 00 daily. Medical Branch lisinopriL Yes [id number] 10mg Take 0.5 [facility] 20 mg 5-21 tablets by ity of tablet 00:00: mouth [place] 00 daily. Medical Branch lisinopriL 2020- No [id number] 10mg Take 0.5 [facility] 20 mg 5-21 06-22 tablets by ity of tablet 00:00: 00:00 mouth [place] 00 :00 daily. Medical Branch lisinopriL 2020- No [id number] 10mg Take 0.5 [facility] 20 mg 5-21 06-22 tablets by ity of tablet 00:00: 00:00 mouth [place] 00 :00 daily. Medical Branch Blood-Gluco Yes [id number] Check [facility] se Meter 5-11 glucose ity of Kit 00:00: once daily [place] 00 before Medical breakfast; Branch ICD-10 code E11.9 blood sugar 2020-0 Yes [id number] Check [facility] diagnostic 5-11 glucose ity of (BLOOD 00:00: once daily [place] GLUCOSE 00 before Medical TEST) strip breakfast; Br anch ICD-10 code E11.9 Lancets 2020-0 Yes [id number] Check [facility] ers Misc 5-11 glucose ity of 00:00: once daily [place] 00 before Medical breakfast; Branch ICD-10 code E11.9 pravastatin 2020-0 Yes [id number] 10mg Take 1 [facility] 10 mg 5-11 [id number] tablet by ity of tablet 00:00: mouth [place] 00 every Medical other day. Branch metformin 2020-0 Yes [id number] 500mg Take 1 [facility] nivers ER 500 mg 5-11 tablet by ity o f 24 hr 00:00: mouth 2 [place] tablet 00 (two) Medical times Branch daily with meals. Blood-Gluco 2020- Yes [id number] Check [facility] se Meter 5-11 glucose ity of Kit 00:00: once daily [place] 00 before Medical breakfast; Branch ICD-10 code E11.9 blood sugar 0 Yes [id number] Check [facility] diagnostic 5-11 glucose ity of (BLOOD 00:00: once daily [place] GLUCOSE 00 before Medical TEST) strip breakfast; Br anch ICD-10 code E11.9 Lancets 2020-0 Yes [id number] Check [facility] ers Misc 5-11 glucose ity of 00:00: once daily [place] 00 before Medical breakfast; Branch ICD-10 code E11.9 pravastatin 2020-0 Yes [id number] 10mg Take 1 [facility] 10 mg 5-11 [id number] tablet by ity of tablet 00:00: mouth [place] 00 every Medical other day. Branch metformin 2020-0 Yes [id number] 500mg Take 1 [facility] ER 500 mg 5-11 tablet by ity o f 24 hr 00:00: mouth 2 [place] tablet 00 (two) Medical times Branch daily with meals. Blood-Gluco 2020-0 Yes [id number] Check [facility] se Meter 5-11 glucose ity of Kit 00:00: once daily [place] 00 before Medical breakfast; Branch ICD-10 code E11.9 blood sugar 2020-0 Yes [id number] Check [facility] diagnostic 5-11 glucose ity of (BLOOD 00:00: once daily [place] GLUCOSE 00 before Medical TEST) strip breakfast; Br anch ICD-10 code E11.9 Lancets Yes [id number] Check [facility] ers Misc 5-11 glucose ity of 00:00: once daily [place] 00 before Medical breakfast; Branch ICD-10 code E11.9 pravastatin 2020-0 Yes [id number] 10mg Take 1 [facility] 10 mg 5-11 [id number] tablet by ity of tablet 00:00: mouth [place] 00 every Medical other day. Branch metformin Yes [id number] 500mg Take 1 [facility] ER 500 mg 5-11 tablet by ity o f 24 hr 00:00: mouth 2 [place] tablet 00 (two) Medical times Branch daily with meals. Blood-Gluco Yes [id number] Check [facility] se Meter 5-11 glucose ity of Kit 00:00: once daily [place] 00 before Medical breakfast; Branch ICD-10 code E11.9 blood sugar Yes [id number] Check [facility] diagnostic 5-11 glucose ity of (BLOOD 00:00: once daily [place] GLUCOSE 00 before Medical TEST) strip breakfast; Br anch ICD-10 code E11.9 Lancets Yes [id number] Check [facility] ers Misc 5-11 glucose ity of 00:00: once daily [place] 00 before Medical breakfast; Branch ICD-10 code E11.9 pravastatin Yes [id number] 10mg Take 1 [facility] 10 mg 5-11 [id number] tablet by ity of tablet 00:00: mouth [place] 00 every Medical other day. Branch metformin 2020- Yes [id number] 500mg Take 1 [facility] ER 500 mg 5-11 tablet by ity o f 24 hr 00:00: mouth 2 [place] tablet 00 (two) Medical times Branch daily with meals. Blood-Gluco Yes [id number] Check [facility] se Meter 5-11 glucose ity of Kit 00:00: once daily [place] 00 before Medical breakfast; Branch ICD-10 code E11.9 blood sugar Yes [id number] Check [facility] diagnostic 5-11 glucose ity of (BLOOD 00:00: once daily [place] GLUCOSE 00 before Medical TEST) strip breakfast; Br anch ICD-10 code E11.9 Lancets Yes [id number] Check [facility] ers Misc 5-11 glucose ity of 00:00: once daily [place] 00 before Medical breakfast; Branch ICD-10 code E11.9 pravastatin 2020-0 Yes [id number] 10mg Take 1 [facility] 10 mg 5-11 [id number] tablet by ity of tablet 00:00: mouth [place] 00 every Medical other day. Branch metformin 2020-0 Yes [id number] 500mg Take 1 [facility] ER 500 mg 5-11 tablet by ity o f 24 hr 00:00: mouth 2 [place] tablet 00 (two) Medical times Branch daily with meals. Blood-Gluco 2020-0 Yes [id number] Check [facility] se Meter 5-11 glucose ity of Kit 00:00: once daily [place] 00 before Medical breakfast; Branch ICD-10 code E11.9 blood sugar 2020- Yes [id number] Check [facility] diagnostic 5-11 glucose ity of (BLOOD 00:00: once daily [place] GLUCOSE 00 before Medical TEST) strip breakfast; Br anch ICD-10 code E11.9 Lancets 2020-0 Yes [id number] Check [facility] ers Misc 5-11 glucose ity of 00:00: once daily [place] 00 before Medical breakfast; Branch ICD-10 code E11.9 pravastatin 2020-0 Yes [id number] 10mg Take 1 [facility] 10 mg 5-11 [id number] tablet by ity of tablet 00:00: mouth [place] 00 every Medical other day. Branch metformin 2020-0 Yes [id number] 500mg Take 1 [facility] ER 500 mg 5-11 tablet by ity o f 24 hr 00:00: mouth 2 [place] tablet 00 (two) Medical times Branch daily with meals. Blood-Gluco 2020-0 Yes [id number] Check [facility] se Meter 5-11 glucose ity of Kit 00:00: once daily [place] 00 before Medical breakfast; Branch ICD-10 code E11.9 blood sugar 2020-0 Yes [id number] Check [facility] diagnostic 5-11 glucose ity of (BLOOD 00:00: once daily [place] GLUCOSE 00 before Medical TEST) strip breakfast; Br anch ICD-10 code E11.9 Lancets 2020-0 Yes [id number] Check [facility] ers Misc 5-11 glucose ity of 00:00: once daily [place] 00 before Medical breakfast; Branch ICD-10 code E11.9 pravastatin 2020-0 Yes [id number] 10mg Take 1 [facility] 10 mg 5-11 [id number] tablet by ity of tablet 00:00: mouth [place] 00 every Medical other day. Branch metformin 2020-0 Yes [id number] 500mg Take 1 [facility] ER 500 mg 5-11 tablet by ity o f 24 hr 00:00: mouth 2 [place] tablet 00 (two) Medical times Branch daily with meals. Blood-Gluco 2020-0 Yes [id number] Check [facility] se Meter 5-11 glucose ity of Kit 00:00: once daily [place] 00 before Medical breakfast; Branch ICD-10 code E11.9 blood sugar 2020-0 Yes [id number] Check [facility] diagnostic 5-11 glucose ity of (BLOOD 00:00: once daily [place] GLUCOSE 00 before Medical TEST) strip breakfast; Br anch ICD-10 code E11.9 Lancets 0 Yes [id number] Check [facility] ers Misc 5-11 glucose ity of 00:00: once daily [place] 00 before Medical breakfast; Branch ICD-10 code E11.9 pravastatin 2020-0 Yes [id number] 10mg Take 1 [facility] 10 mg 5-11 [id number] tablet by ity of tablet 00:00: mouth [place] 00 every Medical other day. Branch metformin 2020-0 Yes [id number] 500mg Take 1 [facility] ER 500 mg 5-11 tablet by ity o f 24 hr 00:00: mouth 2 [place] tablet 00 (two) Medical times Branch daily with meals. Blood-Gluco 2020-0 Yes [id number] Check [facility] se Meter 5-11 glucose ity of Kit 00:00: once daily [place] 00 before Medical breakfast; Branch ICD-10 code E11.9 blood sugar 2020-0 Yes [id number] Check [facility] diagnostic 5-11 glucose ity of (BLOOD 00:00: once daily [place] GLUCOSE 00 before Medical TEST) strip breakfast; Br anch ICD-10 code E11.9 Lancets 2020-0 Yes [id number] Check [facility] ers Misc 5-11 glucose ity of 00:00: once daily [place] 00 before Medical breakfast; Branch ICD-10 code E11.9 pravastatin 2020-0 Yes [id number] 10mg Take 1 [facility] 10 mg 5-11 [id number] tablet by ity of tablet 00:00: mouth [place] 00 every Medical other day. Branch metformin 2020-0 Yes [id number] 500mg Take 1 [facility] ER 500 mg 5-11 tablet by ity o f 24 hr 00:00: mouth 2 [place] tablet 00 (two) Medical times Branch daily with meals. Blood-Gluco 2020-0 Yes [id number] Check [facility] se Meter 5-11 glucose ity of Kit 00:00: once daily [place] 00 before Medical breakfast; Branch ICD-10 code E11.9 blood sugar 2020-0 Yes [id number] Check [facility] diagnostic 5-11 glucose ity of (BLOOD 00:00: once daily [place] GLUCOSE 00 before Medical TEST) strip breakfast; Br anch ICD-10 code E11.9 Lancets 2020-0 Yes [id number] Check [facility] ers Misc 5-11 glucose ity of 00:00: once daily [place] 00 before Medical breakfast; Branch ICD-10 code E11.9 pravastatin 2020-0 Yes [id number] 10mg Take 1 [facility] 10 mg 5-11 [id number] tablet by ity of tablet 00:00: mouth [place] 00 every Medical other day. Branch metformin 2020-0 Yes [id number] 500mg Take 1 [facility] [place] 500 mg 5-11 tablet by ity o f 24 hr 00:00: mouth 2 [place] tablet 00 (two) Medical times Branch daily with meals. Blood-Gluco 2020-0 Yes [id number] Check [facility] se Meter 5-11 glucose ity of Kit 00:00: once daily [place] 00 before Medical breakfast; Branch ICD-10 code E11.9 blood sugar 2020-0 Yes [id number] Check [facility] diagnostic 5-11 glucose ity of (BLOOD 00:00: once daily [place] GLUCOSE 00 before Medical TEST) strip breakfast; Br anch ICD-10 code E11.9 Lancets 2020-0 Yes [id number] Check [facility] ers Misc 5-11 glucose ity of 00:00: once daily [place] 00 before Medical breakfast; Branch ICD-10 code E11.9 pravastatin 2020-0 Yes [id number] 10mg Take 1 [facility] 10 mg 5-11 [id number] tablet by ity of tablet 00:00: mouth [place] 00 every Medical other day. Branch metformin 2020-0 Yes [id number] 500mg Take 1 [facility] nivers ER 500 mg 5-11 tablet by ity o f 24 hr 00:00: mouth 2 [place] tablet 00 (two) Medical times Branch daily with meals. Blood-Gluco 2020-0 Yes [id number] Check [facility] se Meter 5-11 glucose ity of Kit 00:00: once daily [place] 00 before Medical breakfast; Branch ICD-10 code E11.9 blood sugar 2020-0 Yes [id number] Check [facility] diagnostic 5-11 glucose ity of (BLOOD 00:00: once daily [place] GLUCOSE 00 before Medical TEST) strip breakfast; Br oma ICD-10 code E11.9 Lancets 2020-0 Yes [id number] Check [facility] ers Misc 5-11 glucose ity of 00:00: once daily [place] 00 before Medical breakfast; Branch ICD-10 code E11.9 pravastatin 2020-0 Yes [id number] 10mg Take 1 [facility] 10 mg 5-11 [id number] tablet by ity of tablet 00:00: mouth [place] 00 every Medical other day. Branch metformin 2020-0 Yes [id number] 500mg Take 1 U nivers ER 500 mg 5-11 tablet by ity o f 24 hr 00:00: mouth 2 [place] tablet 00 (two) Medical times Branch daily with meals. Blood-Gluco 2020-0 Yes [id number] Check [facility] se Meter 5-11 glucose ity of Kit 00:00: once daily [place] 00 before Medical breakfast; Branch ICD-10 code E11.9 blood sugar 2020-0 Yes [id number] Check [facility] diagnostic 5-11 glucose ity of (BLOOD 00:00: once daily [place] GLUCOSE 00 before Medical TEST) strip breakfast; Br oma ICD-10 code E11.9 Lancets 2020-0 Yes [id number] Check [facility] ers Misc 5-11 glucose ity of 00:00: once daily [place] 00 before Medical breakfast; Branch ICD-10 code E11.9 pravastatin 2020-0 Yes [id number] 10mg Take 1 [facility] 10 mg 5-11 [id number] tablet by ity of tablet 00:00: mouth [place] 00 every Medical other day. Branch metformin 2020-0 Yes [id number] 500mg Take 1 [facility] ER 500 mg 5-11 tablet by ity o f 24 hr 00:00: mouth 2 [place] tablet 00 (two) Medical times Branch daily with meals. Blood-Gluco 2020-0 Yes [id number] Check [facility] se Meter 5-11 glucose ity of Kit 00:00: once daily [place] 00 before Medical breakfast; Branch ICD-10 code E11.9 blood sugar 2020-0 Yes [id number] Check [facility] diagnostic 5-11 glucose ity of (BLOOD 00:00: once daily [place] GLUCOSE 00 before Medical TEST) strip breakfast; Br anch ICD-10 code E11.9 Lancets Yes [id number] Check [facility] ers Misc 5-11 glucose ity of 00:00: once daily [place] 00 before Medical breakfast; Branch ICD-10 code E11.9 pravastatin 2020-0 Yes [id number] 10mg Take 1 [facility] 10 mg 5-11 [id number] tablet by ity of tablet 00:00: mouth [place] 00 every Medical other day. Branch metformin 2020- Yes [id number] 500mg Take 1 [facility] n[facility] ER 500 mg 5-11 tablet by ity o f 24 hr 00:00: mouth 2 [place] tablet 00 (two) Medical times Branch daily with meals. Blood-Gluco Yes [id number] Check [facility] se Meter 5-11 glucose ity of Kit 00:00: once daily [place] 00 before Medical breakfast; Branch ICD-10 code E11.9 blood sugar Yes [id number] Check [facility] diagnostic 5-11 glucose ity of (BLOOD 00:00: once daily [place] GLUCOSE 00 before Medical TEST) strip breakfast; Br anch ICD-10 code E11.9 Lancets Yes [id number] Check [facility] ers Misc 5-11 glucose ity of 00:00: once daily [place] 00 before Medical breakfast; Branch ICD-10 code E11.9 pravastatin Yes [id number] 10mg Take 1 [facility] 10 mg 5-11 [id number] tablet by ity of tablet 00:00: mouth [place] 00 every Medical other day. Branch metformin 2020- Yes [id number] 500mg Take 1 [facility] nivers ER 500 mg 5-11 tablet by ity o f 24 hr 00:00: mouth 2 [place] tablet 00 (two) Medical times Branch daily with meals. Blood-Gluco 2020- Yes [id number] Check [facility] se Meter 5-11 glucose ity of Kit 00:00: once daily [place] 00 before Medical breakfast; Branch ICD-10 code E11.9 blood sugar Yes [id number] Check [facility] diagnostic 5-11 glucose ity of (BLOOD 00:00: once daily [place] GLUCOSE 00 before Medical TEST) strip breakfast; Br anch ICD-10 code E11.9 Lancets Yes [id number] Check [facility] ers Misc 5-11 glucose ity of 00:00: once daily [place] 00 before Medical breakfast; Branch ICD-10 code E11.9 pravastatin 2020-0 Yes [id number] 10mg Take 1 [facility] 10 mg 5-11 [id number] tablet by ity of tablet 00:00: mouth [place] 00 every Medical other day. Branch metformin 2020-0 Yes [id number] 500mg Take 1 [facility] nivers ER 500 mg 5-11 tablet by ity o f 24 hr 00:00: mouth 2 [place] tablet 00 (two) Medical times Branch daily with meals. Blood-Gluco 2020-0 Yes [id number] Check [facility] se Meter 5-11 glucose ity of Kit 00:00: once daily [place] 00 before Medical breakfast; Branch ICD-10 code E11.9 blood sugar 2020-0 Yes [id number] Check [facility] diagnostic 5-11 glucose ity of (BLOOD 00:00: once daily [place] GLUCOSE 00 before Medical TEST) strip breakfast; Br anch ICD-10 code E11.9 Lancets 2020-0 Yes [id number] Check [facility] ers Misc 5-11 glucose ity of 00:00: once daily [place] 00 before Medical breakfast; Branch ICD-10 code E11.9 pravastatin 2020-0 Yes [id number] 10mg Take 1 [facility] 10 mg 5-11 [id number] tablet by ity of tablet 00:00: mouth [place] 00 every Medical other day. Branch metformin 2020-0 Yes [id number] 500mg Take 1 [facility] nivers ER 500 mg 5-11 tablet by ity o f 24 hr 00:00: mouth 2 [place] tablet 00 (two) Medical times Branch daily with meals. Blood-Gluco 2020-0 Yes [id number] Check [facility] se Meter 5-11 glucose ity of Kit 00:00: once daily [place] 00 before Medical breakfast; Branch ICD-10 code E11.9 blood sugar 2020-0 Yes [id number] Check [facility] diagnostic 5-11 glucose ity of (BLOOD 00:00: once daily [place] GLUCOSE 00 before Medical TEST) strip breakfast; Br anch ICD-10 code E11.9 Lancets 2020-0 Yes [id number] Check [facility] ers Misc 5-11 glucose ity of 00:00: once daily [place] 00 before Medical breakfast; Branch ICD-10 code E11.9 pravastatin 2020-0 Yes [id number] 10mg Take 1 [facility] 10 mg 5-11 [id number] tablet by ity of tablet 00:00: mouth [place] 00 every Medical other day. Branch metformin 2020-0 Yes [id number] 500mg Take 1 [facility] nivers ER 500 mg 5-11 tablet by ity o f 24 hr 00:00: mouth 2 [place] tablet 00 (two) Medical times Branch daily with meals. Blood-Gluco 2020-0 Yes [id number] Check [facility] se Meter 5-11 glucose ity of Kit 00:00: once daily [place] 00 before Medical breakfast; Branch ICD-10 code E11.9 blood sugar 2020-0 Yes [id number] Check [facility] diagnostic 5-11 glucose ity of (BLOOD 00:00: once daily [place] GLUCOSE 00 before Medical TEST) strip breakfast; Br anch ICD-10 code E11.9 Lancets 2020-0 Yes [id number] Check [facility] ers Misc 5-11 glucose ity of 00:00: once daily [place] 00 before Medical breakfast; Branch ICD-10 code E11.9 pravastatin 2020-0 Yes [id number] 10mg Take 1 [facility] 10 mg 5-11 [id number] tablet by ity of tablet 00:00: mouth [place] 00 every Medical other day. Branch metformin 2020-0 Yes [id number] 500mg Take 1 [facility] nivers ER 500 mg 5-11 tablet by ity o f 24 hr 00:00: mouth 2 [place] tablet 00 (two) Medical times Branch daily with meals. Blood-Gluco 2020-0 Yes [id number] Check [facility] se Meter 5-11 glucose ity of Kit 00:00: once daily [place] 00 before Medical breakfast; Branch ICD-10 code E11.9 blood sugar 2020-0 Yes [id number] Check [facility] diagnostic 5-11 glucose ity of (BLOOD 00:00: once daily [place] GLUCOSE 00 before Medical TEST) strip breakfast; Br anch ICD-10 code E11.9 Lancets 2020-0 Yes [id number] Check [facility] ers Misc 5-11 glucose ity of 00:00: once daily [place] 00 before Medical breakfast; Branch ICD-10 code E11.9 pravastatin 2020-0 Yes [id number] 10mg Take 1 [facility] 10 mg 5-11 [id number] tablet by ity of tablet 00:00: mouth [place] 00 every Medical other day. Branch metformin 2020-0 Yes [id number] 500mg Take 1 [facility] nivers ER 500 mg 5-11 tablet by ity o f 24 hr 00:00: mouth 2 [place] tablet 00 (two) Medical times Branch daily with meals. Blood-Gluco 2020-0 Yes [id number] Check [facility] se Meter 5-11 glucose ity of Kit 00:00: once daily [place] 00 before Medical breakfast; Branch ICD-10 code E11.9 blood sugar 2020-0 Yes [id number] Check [facility] diagnostic 5-11 glucose ity of (BLOOD 00:00: once daily [place] GLUCOSE 00 before Medical TEST) strip breakfast; Br anch ICD-10 code E11.9 Lancets 2020-0 Yes [id number] Check [facility] ers Misc 5-11 glucose ity of 00:00: once daily [place] 00 before Medical breakfast; Branch ICD-10 code E11.9 pravastatin 2020-0 Yes [id number] 10mg Take 1 [facility] 10 mg 5-11 [id number] tablet by ity of tablet 00:00: mouth [place] 00 every Medical other day. Branch metformin 2020-0 Yes [id number] 500mg Take 1 [facility] nivers ER 500 mg 5-11 tablet by ity o f 24 hr 00:00: mouth 2 [place] tablet 00 (two) Medical times Branch daily with meals. Blood-Gluco 2020-0 Yes [id number] Check [facility] se Meter 5-11 glucose ity of Kit 00:00: once daily [place] 00 before Medical breakfast; Branch ICD-10 code E11.9 blood sugar 2020-0 Yes [id number] Check [facility] diagnostic 5-11 glucose ity of (BLOOD 00:00: once daily [place] GLUCOSE 00 before Medical TEST) strip breakfast; Br anch ICD-10 code E11.9 Lancets 2020-0 Yes [id number] Check [facility] ers Misc 5-11 glucose ity of 00:00: once daily [place] 00 before Medical breakfast; Branch ICD-10 code E11.9 pravastatin 2020-0 Yes [id number] 10mg Take 1 [facility] 10 mg 5-11 [id number] tablet by ity of tablet 00:00: mouth [place] 00 every Medical other day. Branch metformin 2020-0 Yes [id number] 500mg Take 1 [facility] nivers ER 500 mg 5-11 tablet by ity o f 24 hr 00:00: mouth 2 [place] tablet 00 (two) Medical times Branch daily with meals. Blood-Gluco 2020-0 Yes [id number] Check [facility] se Meter 5-11 glucose ity of Kit 00:00: once daily [place] 00 before Medical breakfast; Branch ICD-10 code E11.9 blood sugar 2020-0 Yes [id number] Check [facility] diagnostic 5-11 glucose ity of (BLOOD 00:00: once daily [place] GLUCOSE 00 before Medical TEST) strip breakfast; Br anch ICD-10 code E11.9 Lancets 0 Yes [id number] Check [facility] ers Misc 5-11 glucose ity of 00:00: once daily [place] 00 before Medical breakfast; Branch ICD-10 code E11.9 pravastatin 2020-0 Yes [id number] 10mg Take 1 [facility] 10 mg 5-11 [id number] tablet by ity of tablet 00:00: mouth [place] 00 every Medical other day. Branch metformin 2020-0 Yes [id number] 500mg Take 1 [facility] n[facility] ER 500 mg 5-11 tablet by ity o f 24 hr 00:00: mouth 2 [place] tablet 00 (two) Medical times [place] daily with meals. Blood-Gluco Yes [id number] Check [facility] se Meter 5-11 glucose ity of Kit 00:00: once daily [place] 00 before Medical breakfast; Branch ICD-10 code E11.9 blood sugar 0 Yes [id number] Check [facility] diagnostic 5-11 glucose ity of (BLOOD 00:00: once daily [place] GLUCOSE 00 before Medical TEST) strip breakfast; Br anch ICD-10 code E11.9 Lancets 0 Yes [id number] Check [facility] ers Misc 5-11 glucose ity of 00:00: once daily [place] 00 before Medical breakfast; Branch ICD-10 code E11.9 pravastatin 2020-0 Yes [id number] 10mg Take 1 [facility] 10 mg 5-11 [id number] tablet by ity of tablet 00:00: mouth [place] 00 every Medical other day. Branch metformin 2020-0 Yes [id number] 500mg Take 1 U nivers ER 500 mg 5-11 tablet by ity o f 24 hr 00:00: mouth 2 [place] tablet 00 (two) Medical times [place] daily with meals. LEVOTHYROXI 2020-0 Yes [id number] TAKE 1 [facility] NE 50 mcg 5-05 TABLET BY ity o f tablet 00:00: MOUTH [place] 00 EVERY DAY Medical IN THE Branch MORNING LEVOTHYROXI 2020-0 Yes [id number] TAKE 1 [facility] NE 50 mcg 5-05 TABLET BY ity o f tablet 00:00: MOUTH [place] 00 EVERY DAY Medical IN THE [facility] LEVOTHYROXI Yes [id number] TAKE 1 [facility] NE 50 mcg 5-05 TABLET BY ity o f tablet 00:00: MOUTH [place] 00 EVERY DAY Medical IN THE [facility] LEVOTHYROXI Yes [id number] TAKE 1 [facility] NE 50 mcg 5-05 TABLET BY ity o f tablet 00:00: MOUTH [place] 00 EVERY DAY Medical IN THE [facility] LEVOTHYROXI Yes [id number] TAKE 1 [facility] NE 50 mcg 5-05 TABLET BY ity o f tablet 00:00: MOUTH [place] 00 EVERY DAY Medical IN THE [facility] LEVOTHYROXI Yes [id number] TAKE 1 [facility] NE 50 mcg 5-05 TABLET BY ity o f tablet 00:00: MOUTH [place] 00 EVERY DAY Medical IN THE [facility] LEVOTHYROXI Yes [id number] TAKE 1 [facility] NE 50 mcg 5-05 TABLET BY ity o f tablet 00:00: MOUTH [place] 00 EVERY DAY Medical IN THE [facility] LEVOTHYROXI Yes [id number] TAKE 1 [facility] NE 50 mcg 5-05 TABLET BY ity o f tablet 00:00: MOUTH [place] 00 EVERY DAY Medical IN THE [facility] LEVOTHYROXI Yes [id number] TAKE 1 [facility] NE 50 mcg 5-05 TABLET BY ity o f tablet 00:00: MOUTH [place] 00 EVERY DAY Medical IN THE [facility] LEVOTHYROXI Yes [id number] TAKE 1 [facility] NE 50 mcg 5-05 TABLET BY ity o f tablet 00:00: MOUTH [place] 00 EVERY DAY Medical IN THE [facility] LEVOTHYROXI Yes [id number] TAKE 1 [facility] NE 50 mcg 5-05 TABLET BY ity o f tablet 00:00: MOUTH [place] 00 EVERY DAY Medical IN THE [facility] LEVOTHYROXI 2020- No [id number] TAKE 1 [facility] NE 50 mcg 5-05 06-21 TABLET BY ity of tablet 00:00: 00:00 MOUTH [place] 00 :00 EVERY DAY Medical IN THE [facility] metformin Yes Univers ER 750 mg 5-03 ity of 24 hr 00:00: [place] tablet 00 [facility] metformin Yes Univers ER 750 mg 5-03 [...] of 24 hr 00:00: [place] tablet 00 [facility] Branch TRAZODONE 2021-0 Yes [id number] TAKE 1 U nivers 100 mg 3-18 TABLET BY ity of tablet 00:00: MOUTH EVERY DAY Medical AT BEDTIME [place] NEEDED FOR INSOMNIA TRAZODONE 2020-0 Yes [id number] TAKE 1 U nivers 100 mg 3-18 TABLET BY ity of tablet 00:00: MOUTH EVERY DAY Medical AT BEDTIME [place] NEEDED FOR INSOMNIA TRAZODONE 1-0 Yes [id number] TAKE 1 U nivers 100 mg 3-18 TABLET BY ity of tablet 00:00: MOUTH EVERY DAY Medical AT BEDTIME [place] NEEDED FOR INSOMNIA TRAZODONE 1-0 Yes [id number] TAKE 1 U nivers 100 mg 3-18 TABLET BY ity of tablet 00:00: MOUTH EVERY DAY Medical AT BEDTIME [place] NEEDED FOR INSOMNIA TRAZODONE 1-0 Yes [id number] TAKE 1 U nivers 100 mg 3-18 TABLET BY ity of tablet 00:00: MOUTH [place] EVERY DAY Medical AT BEDTIME [place] NEEDED FOR INSOMNIA TRAZODONE 1-0 Yes [id number] TAKE 1 U nivers 100 mg 3-18 TABLET BY ity of tablet 00:00: MOUTH EVERY DAY Medical AT BEDTIME Branch NEEDED FOR INSOMNIA TRAZODONE 2021-0 Yes [id number] TAKE 1 U nivers 100 mg 3-18 TABLET BY ity of tablet 00:00: MOUTH EVERY DAY Medical AT BEDTIME Branch NEEDED FOR INSOMNIA TRAZODONE 2021-0 Yes [id number] TAKE 1 U nivers 100 mg 3-18 TABLET BY ity of tablet 00:00: MOUTH EVERY DAY Medical AT BEDTIME Branch NEEDED FOR INSOMNIA TRAZODONE 1-0 Yes [id number] TAKE 1 U nivers 100 mg 3-18 TABLET BY ity of tablet 00:00: EVERY DAY Medical AT BEDTIME Branch NEEDED FOR INSOMNIA TRAZODONE 1-0 Yes [id number] TAKE 1 U nivers 100 mg 3-18 TABLET BY ity of tablet 00:00: EVERY DAY Medical AT BEDTIME Branch NEEDED FOR INSOMNIA TRAZODONE 1-0 Yes [id number] TAKE 1 U nivers 100 mg 3-18 TABLET BY ity of tablet 00:00: EVERY DAY Medical AT BEDTIME Branch NEEDED FOR INSOMNIA TRAZODONE 1-0 Yes [id number] TAKE 1 U nivers 100 mg 3-18 TABLET BY ity of tablet 00:00: EVERY DAY Medical AT BEDTIME Branch NEEDED FOR INSOMNIA TRAZODONE 2021-0 Yes [id number] TAKE 1 U nivers 100 mg 3-18 TABLET BY ity of tablet 00:00: EVERY DAY Medical AT BEDTIME Branch NEEDED FOR INSOMNIA TRAZODONE 2021-0 Yes [id number] TAKE 1 U nivers 100 mg 3-18 TABLET BY ity of tablet 00:00: MOUTH EVERY DAY Medical AT BEDTIME Branch NEEDED FOR INSOMNIA TRAZODONE 2021-0 Yes [id number] TAKE 1 U nivers 100 mg 3-18 TABLET BY ity of tablet 00:00: MOUTH EVERY DAY Medical AT BEDTIME Branch NEEDED FOR INSOMNIA TRAZODONE 2021-0 Yes [id number] TAKE 1 U nivers 100 mg 3-18 TABLET BY ity of tablet 00:00: MOUTH EVERY DAY Medical AT BEDTIME Branch NEEDED FOR INSOMNIA TRAZODONE 2020-0 Yes [id number] TAKE 1 U nivers 100 mg 3-18 TABLET BY ity of tablet 00:00: MOUTH 00 EVERY DAY Medical AT BEDTIME Branch NEEDED FOR INSOMNIA TRAZODONE 2020-0 Yes [id number] TAKE 1 U nivers 100 mg 3-18 TABLET BY ity of tablet 00:00: MOUTH EVERY DAY Medical AT BEDTIME Branch NEEDED FOR INSOMNIA TRAZODONE 2020-0 Yes [id number] TAKE 1 U nivers 100 mg 3-18 TABLET BY ity of tablet 00:00: MOUTH 00 EVERY DAY Medical AT BEDTIME Branch NEEDED FOR INSOMNIA TRAZODONE 2020-0 Yes [id number] TAKE 1 U nivers 100 mg 3-18 TABLET BY ity of tablet 00:00: MOUTH 00 EVERY DAY Medical AT BEDTIME Branch NEEDED FOR INSOMNIA TRAZODONE 2020-0 Yes [id number] TAKE 1 U nivers 100 mg 3-18 TABLET BY ity of tablet 00:00: MOUTH EVERY DAY Medical AT BEDTIME Branch NEEDED FOR INSOMNIA TRAZODONE 2020-0 Yes [id number] TAKE 1 U nivers 100 mg 3-18 TABLET BY ity of tablet 00:00: MOUTH 00 EVERY DAY Medical AT BEDTIME Branch NEEDED FOR INSOMNIA TRAZODONE 2020-0 Yes [id number] TAKE 1 U nivers 100 mg 3-18 TABLET BY ity of tablet 00:00: MOUTH 00 EVERY DAY Medical AT BEDTIME Branch NEEDED FOR INSOMNIA TRAZODONE 2020-0 Yes [id number] TAKE 1 U nivers 100 mg 3-18 TABLET BY ity of tablet 00:00: MOUTH 00 EVERY DAY Medical AT BEDTIME Branch NEEDED FOR INSOMNIA TRAZODONE 2020-0 Yes [id number] TAKE 1 U nivers 100 mg 3-18 TABLET BY ity of tablet 00:00: MOUTH 00 EVERY DAY Medical AT BEDTIME Branch NEEDED FOR INSOMNIA TRAZODONE 2020-0 Yes [id number] TAKE 1 U nivers 100 mg 3-18 TABLET BY ity of tablet 00:00: MOUTH 00 EVERY DAY Medical AT BEDTIME Branch NEEDED FOR INSOMNIA metroNIDAZO 1-0 2020- No 500mg 500 mg, IV Univers LE in NaCl 11-14 Infusion, ity of (iso-os) 21:45: 09:44 ONCE, 1 [place] (FLAGYL 00 :00 dose, [facility] RTU 11/14/20 at [facility] IV infusion 1545, 100 500 mg mL
Reas on for Anti-Infec tive: Documented Infection< br>Documen cesar Infection Site: Abdominal< br>Duratio n of Therapy: Other (see Comments) iohexol 2020- No 100mL 100 mL, Unive rs (OMNIPAQUE 11-14 Intravenou it y of 350 20:00: 19:45 s, ONCE, 1 [place] BULK-100 00 :00 dose, [facility] mL) 11/14/20 at Branch injection 1400, 100 mL Routine ciprofloxac 0 Yes [id number] 500mg Take 1 [facility] in HCl 500 2-28 tablet by ity of mg tablet 00:00: mouth (two) Medical times Branch daily. metroNIDAZO 2020-0 Yes [id number] 500mg Take 1 [facility] LE 500 mg 2-28 tablet by ity o f tablet 00:00: mouth (two) Medical times Branch daily. ciprofloxac 2020-0 Yes [id number] 500mg Take 1 [facility] in HCl 500 2-28 tablet by ity of mg tablet 00:00: mouth (two) Medical times Branch daily. metroNIDAZO 2020-0 Yes [id number] 500mg Take 1 [facility] LE 500 mg 2-28 tablet by ity o f tablet 00:00: mouth (two) Medical times Branch daily. ciprofloxac 2020-0 Yes [id number] 500mg Take 1 [facility] in HCl 500 2-28 tablet by ity of mg tablet 00:00: mouth (two) Medical times Branch daily. metroNIDAZO 2020-0 Yes [id number] 500mg Take 1 [facility] LE 500 mg 2-28 tablet by ity o f tablet 00:00: mouth 2 (two) Medical times Branch daily. ciprofloxac 2020-0 Yes [id number] 500mg Take 1 [facility] in HCl 500 2-28 tablet by ity of mg tablet 00:00: mouth (two) Medical times Branch daily. metroNIDAZO 2021-0 Yes [id number] 500mg Take 1 [facility] LE 500 mg 2-28 tablet by ity o f tablet 00:00: mouth (two) Medical times Branch daily. ciprofloxac 2021-0 Yes [id number] 500mg Take 1 [facility] in HCl 500 2-28 tablet by ity of mg tablet 00:00: mouth (two) Medical times Branch daily. metroNIDAZO 2021-0 Yes [id number] 500mg Take 1 [facility] LE 500 mg 2-28 tablet by ity o f tablet 00:00: mouth (two) Medical times Branch daily. ciprofloxac 2021-0 Yes [id number] 500mg Take 1 [facility] in HCl 500 2-28 tablet by ity of mg tablet 00:00: mouth (two) Medical times Branch daily. metroNIDAZO 2021-0 Yes [id number] 500mg Take 1 [facility] LE 500 mg 2-28 tablet by ity o f tablet 00:00: mouth (two) Medical times Branch daily. ciprofloxac 1-0 Yes [id number] 500mg Take 1 [facility] in HCl 500 2-28 tablet by ity of mg tablet 00:00: mouth (two) Medical times Branch daily. metroNIDAZO 1-0 Yes [id number] 500mg Take 1 [facility] LE 500 mg 2-28 tablet by ity o f tablet 00:00: mouth (two) Medical times Branch daily. ciprofloxac 1-0 Yes [id number] 500mg Take 1 [facility] in HCl 500 2-28 tablet by ity of mg tablet 00:00: mouth (two) Medical times Branch daily. metroNIDAZO 2021-0 Yes [id number] 500mg Take 1 [facility] LE 500 mg 2-28 tablet by ity o f tablet 00:00: mouth (two) Medical times Branch daily. ciprofloxac 2021-0 Yes [id number] 500mg Take 1 [facility] in HCl 500 2-28 tablet by ity of mg tablet 00:00: mouth (two) Medical times Branch daily. metroNIDAZO 2021-0 Yes [id number] 500mg Take 1 [facility] LE 500 mg 2-28 tablet by ity o f tablet 00:00: mouth (two) Medical times Branch daily. ciprofloxac 2021-0 Yes [id number] 500mg Take 1 [facility] in HCl 500 2-28 tablet by ity of mg tablet 00:00: mouth (two) Medical times Branch daily. metroNIDAZO 2021-0 Yes [id number] 500mg Take 1 [facility] LE 500 mg 2-28 tablet by ity o f tablet 00:00: mouth (two) Medical times Branch daily. ciprofloxac 2021-0 Yes [id number] 500mg Take 1 [facility] in HCl 500 2-28 tablet by ity of mg tablet 00:00: mouth (two) Medical times Branch daily. metroNIDAZO 2021-0 Yes [id number] 500mg Take 1 [facility] LE 500 mg 2-28 tablet by ity o f tablet 00:00: mouth (two) Medical times Branch daily. ciprofloxac 1-0 Yes [id number] 500mg Take 1 [facility] in HCl 500 2-28 tablet by ity of mg tablet 00:00: mouth (two) Medical times Branch daily. metroNIDAZO 2021-0 Yes [id number] 500mg Take 1 [facility] LE 500 mg 2-28 tablet by ity o f tablet 00:00: mouth (two) Medical times Branch daily. ciprofloxac 2021-0 Yes [id number] 500mg Take 1 [facility] in HCl 500 2-28 tablet by ity of mg tablet 00:00: mouth (two) Medical times Branch daily. metroNIDAZO 2021-0 Yes [id number] 500mg Take 1 [facility] LE 500 mg 2-28 tablet by ity o f tablet 00:00: mouth (two) Medical times Branch daily. ciprofloxac 2021-0 Yes [id number] 500mg Take 1 [facility] in HCl 500 2-28 tablet by ity of mg tablet 00:00: mouth (two) Medical times Branch daily. metroNIDAZO 2021-0 Yes [id number] 500mg Take 1 [facility] LE 500 mg 2-28 tablet by ity o f tablet 00:00: mouth (two) Medical times Branch daily. ciprofloxac 2021-0 Yes [id number] 500mg Take 1 [facility] in HCl 500 2-28 tablet by ity of mg tablet 00:00: mouth (two) Medical times Branch daily. metroNIDAZO 1-0 Yes [id number] 500mg Take 1 [facility] LE 500 mg 2-28 tablet by ity o f tablet 00:00: mouth (two) Medical times Branch daily. ciprofloxac 1-0 Yes [id number] 500mg Take 1 [facility] in HCl 500 2-28 tablet by ity of mg tablet 00:00: mouth (two) Medical times Branch daily. metroNIDAZO 1-0 Yes [id number] 500mg Take 1 [facility] LE 500 mg 2-28 tablet by ity o f tablet 00:00: mouth (two) Medical times Branch daily. ciprofloxac 1-0 Yes [id number] 500mg Take 1 [facility] in HCl 500 2-28 tablet by ity of mg tablet 00:00: mouth (two) Medical times Branch daily. metroNIDAZO 1-0 Yes [id number] 500mg Take 1 [facility] LE 500 mg 2-28 tablet by ity o f tablet 00:00: mouth (two) Medical times Branch daily. ciprofloxac 1-0 Yes [id number] 500mg Take 1 [facility] in HCl 500 2-28 tablet by ity of mg tablet 00:00: mouth (two) Medical times Branch daily. metroNIDAZO 2021-0 Yes [id number] 500mg Take 1 [facility] LE 500 mg 2-28 tablet by ity o f tablet 00:00: mouth (two) Medical times Branch daily. ciprofloxac 1-0 Yes [id number] 500mg Take 1 [facility] in HCl 500 2-28 tablet by ity of mg tablet 00:00: mouth (two) Medical times Branch daily. metroNIDAZO 2021-0 Yes [id number] 500mg Take 1 [facility] LE 500 mg 2-28 tablet by ity o f tablet 00:00: mouth (two) Medical times Branch daily. ciprofloxac 2021-0 Yes [id number] 500mg Take 1 [facility] in HCl 500 2-28 tablet by ity of mg tablet 00:00: mouth (two) Medical times Branch daily. metroNIDAZO 1-0 Yes [id number] 500mg Take 1 [facility] LE 500 mg 2-28 tablet by ity o f tablet 00:00: mouth (two) Medical times Branch daily. ciprofloxac 1-0 Yes [id number] 500mg Take 1 [facility] in HCl 500 2-28 tablet by ity of mg tablet 00:00: mouth (two) Medical times Branch daily. metroNIDAZO 1-0 Yes [id number] 500mg Take 1 [facility] LE 500 mg 2-28 tablet by ity o f tablet 00:00: mouth (two) Medical times Branch daily. ciprofloxac 1-0 Yes [id number] 500mg Take 1 [facility] in HCl 500 2-28 tablet by ity of mg tablet 00:00: mouth (two) Medical times Branch daily. metroNIDAZO 1-0 Yes [id number] 500mg Take 1 [facility] LE 500 mg 2-28 tablet by ity o f tablet 00:00: mouth (two) Medical times Branch daily. ciprofloxac 2020-0 Yes [id number] 500mg Take 1 [facility] in HCl 500 2-28 tablet by ity of mg tablet 00:00: mouth (two) Medical times Branch daily. metroNIDAZO 1-0 Yes [id number] 500mg Take 1 [facility] LE 500 mg 2-28 tablet by ity o f tablet 00:00: mouth (two) Medical times Branch daily. ciprofloxac 1-0 Yes [id number] 500mg Take 1 [facility] in HCl 500 2-28 tablet by ity of mg tablet 00:00: mouth (two) Medical times Branch daily. metroNIDAZO 1-0 Yes [id number] 500mg Take 1 [facility] LE 500 mg 2-28 tablet by ity o f tablet 00:00: mouth (two) Medical times Branch daily. ciprofloxac 2021-0 Yes [id number] 500mg Take 1 [facility] in HCl 500 2-28 tablet by ity of mg tablet 00:00: mouth (two) Medical times Branch daily. metroNIDAZO 2021-0 Yes [id number] 500mg Take 1 [facility] LE 500 mg 2-28 tablet by ity o f tablet 00:00: mouth (two) Medical times Branch daily. ciprofloxac 2020-0 Yes [id number] 500mg Take 1 [facility] in HCl 500 2-28 tablet by ity of mg tablet 00:00: mouth 2 (two) Medical times Branch daily. metroNIDAZO 2020-0 Yes [id number] 500mg Take 1 [facility] LE 500 mg 2-28 tablet by ity o f tablet 00:00: mouth (two) Medical times Branch daily. ciprofloxac 2020-0 Yes [id number] 500mg Take 1 [facility] in HCl 500 2-28 tablet by ity of mg tablet 00:00: mouth (two) Medical times Branch daily. metroNIDAZO 2020-0 Yes [id number] 500mg Take 1 [facility] LE 500 mg 2-28 tablet by ity o f tablet 00:00: mouth (two) Medical times Branch daily. traMADoL 50 2020-0 2020- No [id number] 50mg Take 1 Uni vers mg tablet 11-14-08 tablet by ity of 00:00: 05:59 mouth [place] 00 :00 every 6 Medical (six) Branch hours as needed for Pain (scale 4-6) for up to 7 days. Indication s: acute pain gabapentin 2020-0 Yes [id number] 300mg Take 3 [facility] 100 mg 2-05 [id number] capsules ity of capsule 00:00: [place] mouth 3 [place] (three) Medical times Branch daily. gabapentin 2020-0 Yes [id number] 300mg Take 3 [facility] 100 mg 2-05 [id number] capsules ity of capsule 00:00: by mouth 3 [place] 00 (three) Medical times Branch daily. gabapentin 2020-0 Yes [id number] 300mg Take 3 [facility] 100 mg 2-05 [id number] capsules [facility] capsule 00:00: [place] [facility] [place] ([place] times [facility] daily. gabapentin 2020-0 Yes [id number] 300mg Take 3 [facility] 100 mg 2-05 [id number] capsules [facility] capsule 00:00: [facility] mouth [facility] [place] (three) [facility] times [facility] daily. gabapentin 2020-0 Yes [id number] 300mg Take 3 [facility] 100 mg 2-05 [id number] capsules [facility] capsule 00:00: by mouth [facility] [place] (three) [facility] times [facility] daily. gabapentin 2021-0 Yes [id number] 300mg Take 3 [facility] 100 mg 2-05 [id number] capsules [facility] capsule 00:00: by mouth [facility] [place] (three) [facility] times [facility] daily. gabapentin 2021-0 Yes [id number] 300mg Take 3 [facility] 100 mg 2-05 [id number] capsules [facility] capsule 00:00: by mouth [facility] [place] (three) [facility] times [facility] daily. gabapentin 2021-0 Yes [id number] 300mg Take 3 [facility] 100 mg 2-05 [id number] capsules [facility] capsule 00:00: by mouth [facility] [place] (three) [facility] times [facility] daily. gabapentin 2021-0 Yes [id number] 300mg Take 3 [facility] 100 mg 2-05 [id number] capsules [facility] capsule 00:00: by mouth [facility] [place] (three) [facility] times [facility] daily. gabapentin 2021-0 Yes [id number] 300mg Take 3 [facility] 100 mg 2-05 [id number] capsules [facility] capsule 00:00: by mouth [facility] [place] (three) [facility] times [facility] daily. gabapentin 2021-0 Yes [id number] 300mg Take 3 [facility] 100 mg 2-05 [id number] capsules [facility] capsule 00:00: by mouth [facility] [place] 00 (three) [facility] times [facility] daily. gabapentin 2021-0 Yes [id number] 300mg Take 3 [facility] 100 mg 2-05 [id number] capsules [facility] capsule 00:00: by mouth [facility] [place] 00 (three) [facility] times [facility] daily. gabapentin 2021-0 Yes [id number] 300mg Take 3 [facility] 100 mg 2-05 [id number] capsules [facility] capsule 00:00: by mouth [facility] [place] 00 (three) [facility] times [facility] daily. gabapentin 2021-0 Yes [id number] 300mg Take 3 [facility] 100 mg 2-05 [id number] capsules [facility] capsule 00:00: by mouth [facility] [place] 00 (three) [facility] times [facility] daily. gabapentin 2021-0 Yes [id number] 300mg Take 3 [facility] 100 mg 2-05 [id number] capsules [facility] capsule 00:00: by mouth [facility] [place] 00 (three) [facility] times [facility] daily. gabapentin 2021-0 Yes [id number] 300mg Take 3 [facility] 100 mg 2-05 [id number] capsules [facility] capsule 00:00: by mouth [facility] [place] 00 (three) [facility] times [facility] daily. gabapentin 2021-0 Yes [id number] 300mg Take 3 [facility] 100 mg 2-05 [id number] capsules [facility] capsule 00:00: by mouth [facility] [place] (three) [facility] times [facility] daily. gabapentin 2021-0 Yes [id number] 300mg Take 3 [facility] 100 mg 2-05 [id number] capsules [facility] capsule 00:00: by mouth [facility] [place] (three) [facility] times [facility] daily. gabapentin 2021-0 Yes [id number] 300mg Take 3 [facility] 100 mg 2-05 [id number] capsules [facility] capsule 00:00: by mouth [facility] [place] 00 (three) [facility] times [facility] daily. gabapentin 2021-0 Yes [id number] 300mg Take 3 [facility] 100 mg 2-05 [id number] capsules [facility] capsule 00:00: by mouth [facility] [place] 00 (three) [facility] times [facility] daily. gabapentin 2021-0 Yes [id number] 300mg Take 3 [facility] 100 mg 2-05 [id number] capsules [facility] capsule 00:00: by mouth [facility] [place] (three) [facility] times [facility] daily. gabapentin 2021-0 Yes [id number] 300mg Take 3 [facility] 100 mg 2-05 [id number] capsules [facility] capsule 00:00: by mouth [facility] [place] 00 (three) [facility] times [facility] daily. gabapentin 2021-0 Yes [id number] 300mg Take 3 [facility] 100 mg 2-05 [id number] capsules [facility] capsule 00:00: by mouth [facility] [place] 00 (three) [facility] times [facility] daily. gabapentin 2021-0 Yes [id number] 300mg Take 3 [facility] 100 mg 2-05 [id number] capsules [facility] capsule 00:00: by mouth [facility] [place] 00 (three) [facility] times [facility] daily. gabapentin 2021-0 Yes [id number] 300mg Take 3 [facility] 100 mg 2-05 [id number] capsules [facility] capsule 00:00: by mouth [facility] [place] 00 (three) [facility] times [facility] daily. gabapentin 2021-0 Yes [id number] 300mg Take 3 [facility] 100 mg 2-05 [id number] capsules [facility] capsule 00:00: by mouth [facility] [place] 00 (three) [facility] times [facility] daily. gabapentin 2021-0 Yes [id number] 300mg Take 3 [facility] 100 mg 2-05 [id number] capsules [facility] capsule 00:00: by mouth [facility] [place] 00 (three) [facility] times [facility] daily. gabapentin 2021-0 Yes [id number] 300mg Take 3 [facility] 100 mg 2-05 [id number] capsules [facility] capsule 00:00: by mouth [facility] [place] 00 (three) [facility] times [facility] daily. gabapentin 2021-0 Yes [id number] 300mg Take 3 [facility] 100 mg 2-05 [id number] capsules [facility] capsule 00:00: by mouth [facility] [place] 00 (three) [facility] times [facility] daily. gabapentin 2021-0 Yes [id number] 300mg Take 3 [facility] 100 mg 2-05 [id number] capsules [facility] capsule 00:00: by mouth [facility] [place] 00 (three) [facility] times [facility] daily. gabapentin 2021-0 Yes [id number] 300mg Take 3 [facility] 100 mg 2-05 [id number] capsules [facility] capsule 00:00: by mouth [facility] [place] 00 (three) [facility] times [facility] daily. gabapentin 2021-0 Yes [id number] 300mg Take 3 [facility] 100 mg 1-05 [id number] capsules [facility] capsule 00:00: by mouth [facility] [place] 00 (three) [facility] times [facility] daily. gabapentin 2021-0 Yes [id number] 300mg Take 3 [facility] 100 mg 1-05 [id number] capsules [facility] capsule 00:00: by mouth [facility] [place] 00 (three) [facility] times [facility] daily. gabapentin 2021-0 Yes [id number] 300mg Take 3 [facility] 100 mg 1-05 [id number] capsules [facility] of capsule 00:00: by mouth [facility] [place] 00 (three) [facility] times [facility] daily. gabapentin 2021-0 Yes [id number] 300mg Take 3 [facility] 100 mg 1-05 [id number] capsules [facility] capsule 00:00: by mouth [facility] [place] 00 (three) [facility] times [facility] daily. gabapentin 2021-0 Yes [id number] 300mg Take 3 [facility] 100 mg 1-05 [id number] capsules [facility] capsule 00:00: by mouth [facility] [place] 00 (three) [facility] times [facility] daily. gabapentin 2021-0 Yes [id number] 300mg Take 3 [facility] 100 mg 1-05 [id number] capsules [facility] capsule 00:00: by mouth [facility] [place] 00 (three) [facility] times [facility] daily. gabapentin 2021-0 Yes [id number] 300mg Take 3 [facility] 100 mg 1-05 [id number] capsules [facility] capsule 00:00: by mouth 3 [place] 00 (three) [facility] times [facility] daily. gabapentin 2020-0 Yes [id number] 300mg Take 3 [facility] 100 mg 1-05 [id number] capsules [facility] capsule 00:00: by mouth 3 [place] 00 (three) [facility] times [facility] daily. gabapentin 2020-0 Yes [id number] 300mg Take 3 [facility] 100 mg 1-05 [id number] capsules [facility] capsule 00:00: by mouth 3 [place] 00 (three) [facility] times [facility] daily. gabapentin 2020-0 Yes [id number] 300mg Take 3 [facility] 100 mg 1-05 [id number] capsules [facility] capsule 00:00: by mouth 3 [place] 00 (three) [facility] times [facility] daily. gabapentin 2020-0 Yes [id number] 300mg Take 3 [facility] 100 mg 1-05 [id number] capsules [facility] capsule 00:00: by mouth 3 [place] 00 (three) [facility] times [facility] daily. gabapentin 2020-0 Yes [id number] 300mg Take 3 [facility] 100 mg 1-05 [id number] capsules [facility] capsule 00:00: by mouth 3 [place] 00 (three) [facility] times [facility] daily. gabapentin 2020-0 Yes [id number] 300mg Take 3 [facility] 100 mg 1-05 [id number] capsules [facility] capsule 00:00: by mouth [facility] [place] 00 (three) [facility] times [facility] daily. gabapentin 2020-0 202- No [id number] 300mg Take 3 [facility] 100 mg 1-05 02-05 [id number] capsules [facility] of capsule 00:00: 00:00 by mouth 3 [place] 00 :00 (three) [facility] times [facility] daily. DEXILANT 60 2019- Yes [id number] 60mg TAKE 1 [facility] mg capsule 2-22 CAPSULE BY ity of 00:00: MOUTH [place] 00 DAILY. Medical STOP Branch ESOMEPRAZO LE. DEXILANT 60 2019- Yes [id number] 60mg TAKE 1 [facility] mg capsule 2-22 CAPSULE BY ity of 00:00: MOUTH [place] 00 DAILY. Medical STOP Branch ESOMEPRAZO LE. DEXILANT 60 2019- Yes [id number] 60mg TAKE 1 [facility] mg capsule 2-22 CAPSULE BY ity of 00:00: MOUTH [place] 00 DAILY. Medical STOP Branch ESOMEPRAZO LE. DEXILANT 60 2019-09 Yes [id number] 60mg TAKE 1 [facility] mg capsule 2-22 CAPSULE BY ity of 00:00: MOUTH [place] 00 DAILY. Medical STOP Branch ESOMEPRAZO LE. DEXILANT 60 2019-09 Yes [id number] 60mg TAKE 1 [facility] mg capsule 2-22 CAPSULE BY ity of 00:00: MOUTH [place] 00 DAILY. Medical STOP Branch ESOMEPRAZO LE. DEXILANT 60 2019-09 Yes [id number] 60mg TAKE 1 [facility] mg capsule 2-22 CAPSULE BY ity of 00:00: MOUTH [place] 00 DAILY. Medical STOP Branch ESOMEPRAZO LE. DEXILANT 60 2019-09 Yes [id number] 60mg TAKE 1 [facility] mg capsule 2-22 CAPSULE BY ity of 00:00: MOUTH [place] 00 DAILY. Medical STOP Branch ESOMEPRAZO LE. DEXILANT 60 2019-09 Yes [id number] 60mg TAKE 1 [facility] mg capsule 2-22 CAPSULE BY ity of 00:00: MOUTH [place] 00 DAILY. Medical STOP Branch ESOMEPRAZO LE. DEXILANT 60 2019-09 Yes [id number] 60mg TAKE 1 [facility] mg capsule 2-22 CAPSULE BY ity of 00:00: MOUTH [place] 00 DAILY. Medical STOP Branch ESOMEPRAZO LE. DEXILANT 60 2019-09 Yes [id number] 60mg TAKE 1 [facility] mg capsule 2-22 CAPSULE BY ity of 00:00: MOUTH [place] 00 DAILY. Medical STOP Branch ESOMEPRAZO LE. DEXILANT 60 2019-09 Yes [id number] 60mg TAKE 1 [facility] mg capsule 2-22 CAPSULE BY ity of 00:00: MOUTH [place] 00 DAILY. Medical STOP Branch ESOMEPRAZO LE. DEXILANT 60 2019-09 Yes [id number] 60mg TAKE 1 [facility] mg capsule 2-22 CAPSULE BY ity of 00:00: MOUTH [place] 00 DAILY. Medical STOP Branch ESOMEPRAZO LE. DEXILANT 60 2019-09 Yes [id number] 60mg TAKE 1 [facility] mg capsule 2-22 CAPSULE BY ity of 00:00: MOUTH [place] 00 DAILY. Medical STOP Branch ESOMEPRAZO LE. DEXILANT 60 2019-09 Yes [id number] 60mg TAKE 1 [facility] mg capsule 2-22 CAPSULE BY ity of 00:00: MOUTH [place] 00 DAILY. Medical STOP Branch ESOMEPRAZO LE. DEXILANT 60 2019-09 Yes [id number] 60mg TAKE 1 [facility] mg capsule 2-22 CAPSULE BY ity of 00:00: MOUTH [place] 00 DAILY. Medical STOP Branch ESOMEPRAZO LE. DEXILANT 60 2019- Yes [id number] 60mg TAKE 1 [facility] mg capsule 2-22 CAPSULE BY ity of 00:00: MOUTH [place] 00 DAILY. Medical STOP Branch ESOMEPRAZO LE. DEXILANT 60 2019- Yes [id number] 60mg TAKE 1 [facility] mg capsule 2-22 CAPSULE BY ity of 00:00: MOUTH [place] 00 DAILY. Medical STOP Branch ESOMEPRAZO LE. DEXILANT 60 2019- Yes [id number] 60mg TAKE 1 [facility] mg capsule 2-22 CAPSULE BY ity of 00:00: MOUTH [place] 00 DAILY. Medical STOP Branch ESOMEPRAZO LE. DEXILANT 60 2019- Yes [id number] 60mg TAKE 1 [facility] mg capsule 2-22 CAPSULE BY ity of 00:00: MOUTH [place] 00 DAILY. Medical STOP Branch ESOMEPRAZO LE. DEXILANT 60 2019- Yes [id number] 60mg TAKE 1 [facility] mg capsule 2-22 CAPSULE BY ity of 00:00: MOUTH [place] 00 DAILY. Medical STOP Branch ESOMEPRAZO LE. DEXILANT 60 2019- Yes [id number] 60mg TAKE 1 [facility] mg capsule 2-22 CAPSULE BY ity of 00:00: MOUTH [place] 00 DAILY. Medical STOP Branch ESOMEPRAZO LE. DEXILANT 60 2019- Yes [id number] 60mg TAKE 1 [facility] mg capsule 2-22 CAPSULE BY ity of 00:00: MOUTH [place] 00 DAILY. Medical STOP Branch ESOMEPRAZO LE. DEXILANT 60 2019- Yes [id number] 60mg TAKE 1 [facility] mg capsule 2-22 CAPSULE BY ity of 00:00: MOUTH [place] 00 DAILY. Medical STOP Branch ESOMEPRAZO LE. DEXILANT 60 2019- Yes [id number] 60mg TAKE 1 [facility] mg capsule 2-22 CAPSULE BY ity of 00:00: MOUTH [place] 00 DAILY. Medical STOP Branch ESOMEPRAZO LE. DEXILANT 60 2019- Yes [id number] 60mg TAKE 1 [facility] mg capsule 2-22 CAPSULE BY ity of 00:00: MOUTH [place] 00 DAILY. Medical STOP Branch ESOMEPRAZO LE. DEXILANT 60 2019- Yes [id number] 60mg TAKE 1 [facility] mg capsule 2-22 CAPSULE BY ity of 00:00: MOUTH [place] 00 DAILY. Medical STOP Branch ESOMEPRAZO LE. DEXILANT 60 2019-09 Yes [id number] 60mg TAKE 1 [facility] mg capsule 2-22 CAPSULE BY ity of 00:00: MOUTH [place] 00 DAILY. Medical STOP Branch ESOMEPRAZO LE. DEXILANT 60 2019-09 Yes [id number] 60mg TAKE 1 [facility] mg capsule 2-22 CAPSULE BY ity of 00:00: MOUTH [place] 00 DAILY. Medical STOP Branch ESOMEPRAZO LE. DEXILANT 60 2019-09 Yes [id number] 60mg TAKE 1 [facility] mg capsule 2-22 CAPSULE BY ity of 00:00: MOUTH [place] 00 DAILY. Medical STOP Branch ESOMEPRAZO LE. DEXILANT 60 2019-09 Yes [id number] 60mg TAKE 1 [facility] mg capsule 2-22 CAPSULE BY ity of 00:00: MOUTH [place] 00 DAILY. Medical STOP Branch ESOMEPRAZO LE. DEXILANT 60 2019-09 Yes [id number] 60mg TAKE 1 [facility] mg capsule 2-22 CAPSULE BY ity of 00:00: MOUTH [place] 00 DAILY. Medical STOP Branch ESOMEPRAZO LE. DEXILANT 60 2019-09 Yes [id number] 60mg TAKE 1 [facility] mg capsule 2-22 CAPSULE BY ity of 00:00: MOUTH [place] 00 DAILY. Medical STOP Branch ESOMEPRAZO LE. DEXILANT 60 2019-09 Yes [id number] 60mg TAKE 1 [facility] mg capsule 2-22 CAPSULE BY ity of 00:00: MOUTH [place] 00 DAILY. Medical STOP Branch ESOMEPRAZO LE. DEXILANT 60 2019-09 Yes [id number] 60mg TAKE 1 [facility] mg capsule 2-22 CAPSULE BY ity of 00:00: MOUTH [place] 00 DAILY. Medical STOP Branch ESOMEPRAZO LE. DEXILANT 60 2019-09 Yes [id number] 60mg TAKE 1 [facility] mg capsule 2-22 CAPSULE BY ity of 00:00: MOUTH [place] 00 DAILY. Medical STOP Branch ESOMEPRAZO LE. DEXILANT 60 2019-09 Yes [id number] 60mg TAKE 1 [facility] mg capsule 2-22 CAPSULE BY ity of 00:00: MOUTH [place] 00 DAILY. Medical STOP Branch ESOMEPRAZO LE. DEXILANT 60 2019-09 Yes [id number] 60mg TAKE 1 [facility] mg capsule 2-22 CAPSULE BY ity of 00:00: MOUTH [place] 00 DAILY. Medical STOP Branch ESOMEPRAZO LE. DEXILANT 60 2019-09- No [id number] 60mg TAKE 1 [facility] mg capsule 2-22 08-18 CAPSULE BY it y of 00:00: 00:00 MOUTH [place] 00 :00 DAILY. Medical STOP Branch TO [place]. thiamine 2019-09 Yes [id number] 100mg Take 1 [facility] 100 mg 2-16 tablet by it[facility] of tablet 00:00: mouth [place] 00 daily. Medical Branch Ferrous 2019- Yes [id number] 142mg Take 1 [facility] vers Sulfate 2-16 tablet by ity of (SLOW FE) 00:00: mouth [place] 142 mg (45 00 daily. Medical mg iron) Branch tablet thiamine 2019-09 Yes [id number] 100mg Take 1 [facility] 100 mg 2-16 tablet by it[facility] of tablet 00:00: mouth [place] 00 daily. Medical Branch Ferrous 2019-09 Yes [id number] 142mg Take 1 [facility] vers Sulfate 2-16 tablet by ity of (SLOW FE) 00:00: mouth [place] 142 mg (45 00 daily. Medical mg iron) Branch tablet thiamine 2019-09 Yes [id number] 100mg Take 1 [facility] 100 mg 2-16 tablet by ity of tablet 00:00: mouth [place] 00 daily. Medical Branch Ferrous 2019-09 Yes [id number] 142mg Take 1 [facility] vers Sulfate 2-16 tablet by ity of (SLOW FE) 00:00: mouth [place] 142 mg (45 00 daily. Medical mg iron) Branch tablet thiamine 2019-09 Yes [id number] 100mg Take 1 [facility] 100 mg 2-16 tablet by ity of tablet 00:00: mouth [place] 00 daily. Medical Branch Ferrous 2019- Yes [id number] 142mg Take 1 [facility] vers Sulfate 2-16 tablet by ity of (SLOW FE) 00:00: mouth [place] 142 mg (45 00 daily. Medical mg iron) Branch tablet thiamine 2019-09 Yes [id number] 100mg Take 1 [facility] 100 mg 2-16 tablet by ity of tablet 00:00: mouth [place] 00 daily. Medical Branch Ferrous 2019-09 Yes [id number] 142mg Take 1 [facility] vers Sulfate 2-16 tablet by ity of (SLOW FE) 00:00: mouth [place] 142 mg (45 00 daily. Medical mg iron) Branch tablet thiamine 2019-09 Yes [id number] 100mg Take 1 [facility] 100 mg 2-16 tablet by ity of tablet 00:00: mouth [place] 00 daily. Medical Branch Ferrous 2020- Yes [id number] 142mg Take 1 [facility] vers Sulfate 2-16 tablet by ity of (SLOW FE) 00:00: mouth [place] 142 mg (45 00 daily. Medical mg iron) Branch tablet thiamine 2019- Yes [id number] 100mg Take 1 [facility] 100 mg 2-16 tablet by ity of tablet 00:00: mouth [place] 00 daily. Medical Branch Ferrous 2020- Yes [id number] 142mg Take 1 [facility] vers Sulfate 2-16 tablet by ity of (SLOW FE) 00:00: mouth [place] 142 mg (45 00 daily. Medical mg iron) Branch tablet thiamine 2019-09 Yes [id number] 100mg Take 1 [facility] 100 mg 2-16 tablet by ity of tablet 00:00: mouth [place] 00 daily. Medical Branch Ferrous 2020- Yes [id number] 142mg Take 1 [facility] vers Sulfate 2-16 tablet by ity of (SLOW FE) 00:00: mouth [place] 142 mg (45 00 daily. Medical mg iron) Branch tablet thiamine 2019- Yes [id number] 100mg Take 1 [facility] 100 mg 2-16 tablet by ity of tablet 00:00: mouth [place] 00 daily. Medical Branch Ferrous 2019- Yes [id number] 142mg Take 1 [facility] vers Sulfate 2-16 tablet by ity of (SLOW FE) 00:00: mouth [place] 142 mg (45 00 daily. Medical mg iron) Branch tablet thiamine 2019-09 Yes [id number] 100mg Take 1 [facility] 100 mg 2-16 tablet by ity of tablet 00:00: mouth [place] 00 daily. Medical Branch Ferrous 2020- Yes [id number] 142mg Take 1 [facility] vers Sulfate 2-16 tablet by ity of (SLOW FE) 00:00: mouth [place] 142 mg (45 00 daily. Medical mg iron) Branch tablet thiamine 2019- Yes [id number] 100mg Take 1 [facility] 100 mg 2-16 tablet by ity of tablet 00:00: mouth [place] 00 daily. Medical Branch Ferrous 2020- Yes [id number] 142mg Take 1 [facility] vers Sulfate 2-16 tablet by ity of (SLOW FE) 00:00: mouth [place] 142 mg (45 00 daily. Medical mg iron) Branch tablet thiamine 2019- Yes [id number] 100mg Take 1 [facility] 100 mg 2-16 tablet by ity of tablet 00:00: mouth [place] 00 daily. Medical Branch Ferrous 2020- Yes [id number] 142mg Take 1 [facility] vers Sulfate 2-16 tablet by ity of (SLOW FE) 00:00: mouth [place] 142 mg (45 00 daily. Medical mg iron) Branch tablet thiamine 2019-09 Yes [id number] 100mg Take 1 [facility] 100 mg 2-16 tablet by ity of tablet 00:00: mouth [place] 00 daily. Medical Branch Ferrous 2020- Yes [id number] 142mg Take 1 [facility] vers Sulfate 2-16 tablet by ity of (SLOW FE) 00:00: mouth [place] 142 mg (45 00 daily. Medical mg iron) Branch tablet thiamine 2019-09 Yes [id number] 100mg Take 1 [facility] 100 mg 2-16 tablet by ity of tablet 00:00: mouth [place] 00 daily. Medical Branch Ferrous 2020- Yes [id number] 142mg Take 1 [facility] vers Sulfate 2-16 tablet by ity of (SLOW FE) 00:00: mouth [place] 142 mg (45 00 daily. Medical mg iron) Branch tablet thiamine 2019-09 Yes [id number] 100mg Take 1 [facility] 100 mg 2-16 tablet by ity of tablet 00:00: mouth [place] 00 daily. Medical Branch Ferrous 2019- Yes [id number] 142mg Take 1 [facility] vers Sulfate 2-16 tablet by ity of (SLOW FE) 00:00: mouth [place] 142 mg (45 00 daily. Medical mg iron) Branch tablet thiamine 2019-09 Yes [id number] 100mg Take 1 [facility] 100 mg 2-16 tablet by ity of tablet 00:00: mouth [place] 00 daily. Medical Branch Ferrous 2020- Yes [id number] 142mg Take 1 [facility] vers Sulfate 2-16 tablet by ity of (SLOW FE) 00:00: mouth [place] 142 mg (45 00 daily. Medical mg iron) Branch tablet thiamine 2019- Yes [id number] 100mg Take 1 [facility] 100 mg 2-16 tablet by ity of tablet 00:00: mouth [place] 00 daily. Medical Branch Ferrous 2020- Yes [id number] 142mg Take 1 [facility] vers Sulfate 2-16 tablet by ity of (SLOW FE) 00:00: mouth [place] 142 mg (45 00 daily. Medical mg iron) Branch tablet thiamine 2019-09 Yes [id number] 100mg Take 1 [facility] 100 mg 2-16 tablet by ity of tablet 00:00: mouth [place] 00 daily. Medical Branch Ferrous 2020- Yes [id number] 142mg Take 1 [facility] vers Sulfate 2-16 tablet by ity of (SLOW FE) 00:00: mouth [place] 142 mg (45 00 daily. Medical mg iron) Branch tablet thiamine 2019-09 Yes [id number] 100mg Take 1 [facility] 100 mg 2-16 tablet by ity of tablet 00:00: mouth [place] 00 daily. Medical Branch Ferrous 2020- Yes [id number] 142mg Take 1 [facility] vers Sulfate 2-16 tablet by ity of (SLOW FE) 00:00: mouth [place] 142 mg (45 00 daily. Medical mg iron) Branch tablet thiamine 2019-09 Yes [id number] 100mg Take 1 [facility] 100 mg 2-16 tablet by ity of tablet 00:00: mouth [place] 00 daily. Medical Branch Ferrous 2019- Yes [id number] 142mg Take 1 [facility] vers Sulfate 2-16 tablet by ity of (SLOW FE) 00:00: mouth [place] 142 mg (45 00 daily. Medical mg iron) Branch tablet thiamine 2019-09 Yes [id number] 100mg Take 1 [facility] 100 mg 2-16 tablet by ity of tablet 00:00: mouth [place] 00 daily. Medical Branch Ferrous 2019- Yes [id number] 142mg Take 1 [facility] vers Sulfate 2-16 tablet by ity of (SLOW FE) 00:00: mouth [place] 142 mg (45 00 daily. Medical mg iron) Branch tablet thiamine 2019-09 Yes [id number] 100mg Take 1 [facility] 100 mg 2-16 tablet by ity of tablet 00:00: mouth [place] 00 daily. Medical Branch Ferrous 2020- Yes [id number] 142mg Take 1 [facility] vers Sulfate 2-16 tablet by ity of (SLOW FE) 00:00: mouth [place] 142 mg (45 00 daily. Medical mg iron) Branch tablet thiamine 2019- Yes [id number] 100mg Take 1 [facility] 100 mg 2-16 tablet by ity of tablet 00:00: mouth [place] 00 daily. Medical Branch Ferrous 2020- Yes [id number] 142mg Take 1 [facility] vers Sulfate 2-16 tablet by ity of (SLOW FE) 00:00: mouth [place] 142 mg (45 00 daily. Medical mg iron) Branch tablet thiamine 2019- Yes [id number] 100mg Take 1 [facility] 100 mg 2-16 tablet by ity of tablet 00:00: mouth [place] 00 daily. Medical Branch Ferrous 2020- Yes [id number] 142mg Take 1 [facility] vers Sulfate 2-16 tablet by ity of (SLOW FE) 00:00: mouth [place] 142 mg (45 00 daily. Medical mg iron) Branch tablet thiamine 2019-09 Yes [id number] 100mg Take 1 [facility] 100 mg 2-16 tablet by ity of tablet 00:00: mouth [place] 00 daily. Medical Branch Ferrous 2020- Yes [id number] 142mg Take 1 [facility] vers Sulfate 2-16 tablet by ity of (SLOW FE) 00:00: mouth [place] 142 mg (45 00 daily. Medical mg iron) Branch tablet thiamine 2019-09 Yes [id number] 100mg Take 1 [facility] 100 mg 2-16 tablet by ity of tablet 00:00: mouth [place] 00 daily. Medical Branch Ferrous 2019- Yes [id number] 142mg Take 1 [facility] vers Sulfate 2-16 tablet by ity of (SLOW FE) 00:00: mouth [place] 142 mg (45 00 daily. Medical mg iron) Branch tablet thiamine 2019-09 Yes [id number] 100mg Take 1 [facility] 100 mg 2-16 tablet by ity of tablet 00:00: mouth [place] 00 daily. Medical Branch Ferrous 2019- Yes [id number] 142mg Take 1 [facility] vers Sulfate 2-16 tablet by ity of (SLOW FE) 00:00: mouth [place] 142 mg (45 00 daily. Medical mg iron) Branch tablet thiamine 2019-09 Yes [id number] 100mg Take 1 [facility] 100 mg 2-16 tablet by ity of tablet 00:00: mouth [place] 00 daily. Medical Branch Ferrous 2020- Yes [id number] 142mg Take 1 [facility] vers Sulfate 2-16 tablet by ity of (SLOW FE) 00:00: mouth [place] 142 mg (45 00 daily. Medical mg iron) Branch tablet thiamine 2019- Yes [id number] 100mg Take 1 [facility] 100 mg 2-16 tablet by ity of tablet 00:00: mouth [place] 00 daily. Medical Branch Ferrous 2020- Yes [id number] 142mg Take 1 [facility] vers Sulfate 2-16 tablet by ity of (SLOW FE) 00:00: mouth [place] 142 mg (45 00 daily. Medical mg iron) Branch tablet thiamine 2019- Yes [id number] 100mg Take 1 [facility] 100 mg 2-16 tablet by ity of tablet 00:00: mouth [place] 00 daily. Medical Branch Ferrous 2020- Yes [id number] 142mg Take 1 [facility] vers Sulfate 2-16 tablet by ity of (SLOW FE) 00:00: mouth [place] 142 mg (45 00 daily. Medical mg iron) Branch tablet thiamine 2019-09 Yes [id number] 100mg Take 1 [facility] 100 mg 2-16 tablet by ity of tablet 00:00: mouth [place] 00 daily. Medical Branch Ferrous 2020- Yes [id number] 142mg Take 1 [facility] vers Sulfate 2-16 tablet by ity of (SLOW FE) 00:00: mouth [place] 142 mg (45 00 daily. Medical mg iron) Branch tablet thiamine 2019-09 Yes [id number] 100mg Take 1 [facility] 100 mg 2-16 tablet by ity of tablet 00:00: mouth [place] 00 daily. Medical Branch Ferrous 2019- Yes [id number] 142mg Take 1 [facility] vers Sulfate 2-16 tablet by ity of (SLOW FE) 00:00: mouth [place] 142 mg (45 00 daily. Medical mg iron) Branch tablet thiamine 2019-09 Yes [id number] 100mg Take 1 [facility] 100 mg 2-16 tablet by ity of tablet 00:00: mouth [place] 00 daily. Medical Branch Ferrous 2019- Yes [id number] 142mg Take 1 [facility] vers Sulfate 2-16 tablet by ity of (SLOW FE) 00:00: mouth [place] 142 mg (45 00 daily. Medical mg iron) Branch tablet thiamine 2019-09 Yes [id number] 100mg Take 1 [facility] 100 mg 2-16 tablet by ity of tablet 00:00: mouth [place] 00 daily. Medical Branch Ferrous 2020- Yes [id number] 142mg Take 1 [facility] vers Sulfate 2-16 tablet by ity of (SLOW FE) 00:00: mouth [place] 142 mg (45 00 daily. Medical mg iron) Branch tablet thiamine 2019- Yes [id number] 100mg Take 1 [facility] 100 mg 2-16 tablet by ity of tablet 00:00: mouth [place] 00 daily. Medical Branch Ferrous 2020- Yes [id number] 142mg Take 1 [facility] vers Sulfate 2-16 tablet by ity of (SLOW FE) 00:00: mouth [place] 142 mg (45 00 daily. Medical mg iron) Branch tablet thiamine 2019- Yes [id number] 100mg Take 1 [facility] 100 mg 2-16 tablet by ity of tablet 00:00: mouth [place] 00 daily. Medical Branch Ferrous 2020- Yes [id number] 142mg Take 1 [facility] vers Sulfate 2-16 tablet by ity of (SLOW FE) 00:00: mouth [place] 142 mg (45 00 daily. Medical mg iron) Branch tablet thiamine 2019-09 Yes [id number] 100mg Take 1 [facility] 100 mg 2-16 tablet by ity of tablet 00:00: mouth [place] 00 daily. Medical Branch Ferrous 2020- Yes [id number] 142mg Take 1 [facility] vers Sulfate 2-16 tablet by ity of (SLOW FE) 00:00: mouth [place] 142 mg (45 00 daily. Medical mg iron) Branch tablet thiamine 2019-09 Yes [id number] 100mg Take 1 [facility] 100 mg 2-16 tablet by ity of tablet 00:00: mouth [place] 00 daily. Medical Branch Ferrous 2019- Yes [id number] 142mg Take 1 [facility] vers Sulfate 2-16 tablet by ity of (SLOW FE) 00:00: mouth [place] 142 mg (45 00 daily. Medical mg iron) Branch tablet thiamine 2019-09 Yes [id number] 100mg Take 1 [facility] 100 mg 2-16 tablet by ity of tablet 00:00: mouth [place] 00 daily. Medical Branch Ferrous 2019- Yes [id number] 142mg Take 1 [facility] vers Sulfate 2-16 tablet by [facility]y of (SLOW FE) 00:00: mouth [place] 142 mg (45 00 daily. Medical mg iron) Branch tablet thiamine 2019-09 Yes [id number] 100mg Take 1 [facility] 100 mg 2-16 tablet by [facility] of tablet 00:00: mouth [place] 00 daily. Medical Branch Ferrous 2020- Yes [id number] 142mg Take 1 [facility] Sulfate 2-16 tablet by [facility]y of (SLOW FE) 00:00: mouth [place] 142 mg (45 00 daily. Medical mg iron) Branch tablet thiamine 2019- Yes [id number] 100mg Take 1 [facility] 100 mg 2-16 tablet by [facility] of tablet 00:00: mouth [place] 00 daily. Medical Branch Ferrous 2019- Yes [id number] 142mg Take 1 [facility] Sulfate 2-16 tablet by ity of (SLOW FE) 00:00: mouth [place] 142 mg (45 00 daily. Medical mg iron) Branch tablet thiamine 2019- Yes [id number] 100mg Take 1 [facility] 100 mg 2-16 tablet by [facility] of tablet 00:00: mouth [place] 00 daily. Medical Branch Ferrous 2019-09 Yes [id number] 142mg Take 1 [facility] Sulfate 2-16 tablet by [facility]y of (SLOW FE) 00:00: mouth [place] 142 mg (45 00 daily. Medical mg iron) Branch tablet thiamine 2019-09 Yes [id number] 100mg Take 1 [facility] 100 mg 2-16 tablet by [facility] of tablet 00:00: mouth [place] 00 daily. Medical Branch Ferrous 2019-09 Yes [id number] 142mg Take 1 [facility] Sulfate 2-16 tablet by ity of (SLOW FE) 00:00: mouth [place] 142 mg (45 00 daily. Medical mg iron) Branch tablet thiamine 2019-09 Yes [id number] 100mg Take 1 [facility] 100 mg 2-16 tablet by [facility] of tablet 00:00: mouth [place] 00 daily. Medical Branch Ferrous 2019-09 Yes [id number] 142mg Take 1 [facility] Sulfate 2-16 tablet by ity of (SLOW FE) 00:00: mouth [place] 142 mg (45 00 daily. Medical mg iron) Branch tablet thiamine 2019-09 Yes [id number] 100mg Take 1 [facility] 100 mg 2-16 tablet by [facility] of tablet 00:00: mouth [place] 00 daily. Medical Branch Ferrous 2019-09 Yes [id number] 142mg Take 1 [facility] Sulfate 2-16 tablet by ity of (SLOW FE) 00:00: mouth [place] 142 mg (45 00 daily. Medical mg iron) Branch tablet thiamine 2019-09 Yes [id number] 100mg Take 1 [facility] 100 mg 2-16 tablet by [facility] of tablet 00:00: mouth [place] 00 daily. Medical Branch Ferrous 2019-09 Yes [id number] 142mg Take 1 [facility] Sulfate 2-16 tablet by ity of (SLOW FE) 00:00: mouth [place] 142 mg (45 00 daily. Medical mg iron) Branch tablet gabapentin 2019-09 2020- No 100mg 100 mg, [facility] [place] (NEURONTIN) 2-15 12-15 Oral, it[facility] of capsule 100 05:30: 04:36 ONCE, 1 [place] mg 00 :00 dose, [facility] 08/30/20 Branch at 2330, Routine CLOPIDOGREL 2019-09 Yes [id number] TAKE 1 [facility] 75 mg 2-15 [id number] TABLET BY ity of tablet 00:00: MOUTH [place] 00 EVERY DAY Medical Branch CLOPIDOGREL 2020-1 Yes [id number] TAKE 1 [facility] 75 mg 2-15 [id number] TABLET BY ity of tablet 00:00: MOUTH [place] 00 EVERY DAY Medical Branch PRAVASTATIN 2020-1 Yes [id number] 10mg TAKE 1 [facility] 10 mg 2-15 [id number] TABLET BY ity of tablet 00:00: MOUTH [place] 00 EVERY Medical OTHER DAY Branch CLOPIDOGREL 2020-1 Yes [id number] TAKE 1 [facility] 75 mg 2-15 [id number] TABLET BY ity of tablet 00:00: MOUTH [place] 00 EVERY DAY Medical Branch PRAVASTATIN 2020-1 Yes [id number] 10mg TAKE 1 [facility] 10 mg 2-15 [id number] TABLET BY it[facility] of tablet 00:00: MOUTH [place] 00 EVERY Medical OTHER DAY Branch CLOPIDOGREL 2020-1 Yes [id number] TAKE 1 [facility] 75 mg 2-15 [id number] TABLET BY ity of tablet 00:00: MOUTH [place] 00 EVERY DAY Medical Branch PRAVASTATIN 2020-1 Yes [id number] 10mg TAKE 1 [facility] 10 mg 2-15 [id number] TABLET BY it[facility] of tablet 00:00: MOUTH [place] 00 EVERY Medical OTHER DAY Branch CLOPIDOGREL 2020-1 Yes [id number] TAKE 1 [facility] 75 mg 2-15 [id number] TABLET BY ity of tablet 00:00: MOUTH [place] 00 EVERY DAY Medical Branch PRAVASTATIN 2020-1 Yes [id number] 10mg TAKE 1 [facility] 10 mg 2-15 [id number] TABLET BY ity of tablet 00:00: MOUTH [place] 00 EVERY Medical OTHER DAY Branch CLOPIDOGREL 2020-1 Yes [id number] TAKE 1 [facility] 75 mg 2-15 [id number] TABLET BY ity of tablet 00:00: MOUTH [place] 00 EVERY DAY Medical Branch PRAVASTATIN 2020-1 Yes [id number] 10mg TAKE 1 [facility] 10 mg 2-15 [id number] TABLET BY ity of tablet 00:00: MOUTH [place] 00 EVERY Medical OTHER DAY Branch CLOPIDOGREL 2020-1 Yes [id number] TAKE 1 [facility] 75 mg 2-15 [id number] TABLET BY ity of tablet 00:00: MOUTH [place] 00 EVERY DAY Medical Branch PRAVASTATIN 2020-1 Yes [id number] 10mg TAKE 1 [facility] 10 mg 2-15 [id number] TABLET BY ity of tablet 00:00: MOUTH [place] 00 EVERY Medical OTHER DAY Branch CLOPIDOGREL 2020-1 Yes [id number] TAKE 1 [facility] 75 mg 2-15 [id number] TABLET BY ity of tablet 00:00: MOUTH [place] 00 EVERY DAY Medical Branch PRAVASTATIN 2020-1 Yes [id number] 10mg TAKE 1 [facility] 10 mg 2-15 [id number] TABLET BY ity of tablet 00:00: MOUTH [place] 00 EVERY Medical OTHER DAY Branch CLOPIDOGREL 2020-1 Yes [id number] TAKE 1 [facility] 75 mg 2-15 [id number] TABLET BY ity of tablet 00:00: MOUTH [place] 00 EVERY DAY Medical Branch PRAVASTATIN 2020-1 Yes [id number] 10mg TAKE 1 [facility] 10 mg 2-15 [id number] TABLET BY ity of tablet 00:00: MOUTH [place] 00 EVERY Medical OTHER DAY Branch CLOPIDOGREL 2020-1 Yes [id number] TAKE 1 [facility] 75 mg 2-15 [id number] TABLET BY ity of tablet 00:00: MOUTH [place] 00 EVERY DAY Medical Branch PRAVASTATIN 2020-1 Yes [id number] 10mg TAKE 1 [facility] 10 mg 2-15 [id number] TABLET BY ity of tablet 00:00: MOUTH [place] 00 EVERY Medical OTHER DAY Branch CLOPIDOGREL 2020-1 Yes [id number] TAKE 1 [facility] 75 mg 2-15 [id number] TABLET BY ity of tablet 00:00: MOUTH EVERY DAY Medical Branch PRAVASTATIN 2020-1 Yes [id number] 10mg TAKE 1 [facility] 10 mg 2-15 [id number] TABLET BY ity of tablet 00:00: MOUTH [place] 00 EVERY Medical OTHER DAY Branch CLOPIDOGREL 2020-1 Yes [id number] TAKE 1 [facility] 75 mg 2-15 [id number] TABLET BY ity of tablet 00:00: MOUTH [place] 00 EVERY DAY Medical Branch PRAVASTATIN 2020-1 Yes [id number] 10mg TAKE 1 [facility] 10 mg 2-15 [id number] TABLET BY ity of tablet 00:00: MOUTH [place] 00 EVERY Medical OTHER DAY Branch CLOPIDOGREL 2020-1 Yes [id number] TAKE 1 [facility] 75 mg 2-15 [id number] TABLET BY ity of tablet 00:00: MOUTH [place] 00 EVERY DAY Medical Branch PRAVASTATIN 2020-1 Yes [id number] 10mg TAKE 1 [facility] 10 mg 2-15 [id number] TABLET BY ity of tablet 00:00: MOUTH [place] 00 EVERY Medical OTHER DAY Branch CLOPIDOGREL 2020-1 Yes [id number] TAKE 1 [facility] 75 mg 2-15 [id number] TABLET BY ity of tablet 00:00: MOUTH [place] 00 EVERY DAY Medical Branch PRAVASTATIN 2020-1 Yes [id number] 10mg TAKE 1 [facility] 10 mg 2-15 [id number] TABLET BY ity of tablet 00:00: MOUTH [place] 00 EVERY Medical OTHER DAY Branch CLOPIDOGREL 2020-1 Yes [id number] TAKE 1 [facility] 75 mg 2-15 [id number] TABLET BY ity of tablet 00:00: MOUTH [place] 00 EVERY DAY Medical Branch PRAVASTATIN 2020-1 Yes [id number] 10mg TAKE 1 [facility] 10 mg 2-15 [id number] TABLET BY ity of tablet 00:00: MOUTH [place] 00 EVERY Medical OTHER DAY Branch CLOPIDOGREL 2020-1 Yes [id number] TAKE 1 [facility] 75 mg 2-15 [id number] TABLET BY ity of tablet 00:00: MOUTH [place] 00 EVERY DAY Medical Branch PRAVASTATIN 2020-1 Yes [id number] 10mg TAKE 1 [facility] 10 mg 2-15 [id number] TABLET BY ity of tablet 00:00: MOUTH [place] 00 EVERY Medical OTHER DAY Branch CLOPIDOGREL 2020-1 Yes [id number] TAKE 1 [facility] 75 mg 2-15 [id number] TABLET BY ity of tablet 00:00: MOUTH [place] 00 EVERY DAY Medical Branch PRAVASTATIN 2020-1 Yes [id number] 10mg TAKE 1 [facility] 10 mg 2-15 [id number] TABLET BY ity of tablet 00:00: MOUTH [place] 00 EVERY Medical OTHER DAY Branch CLOPIDOGREL 2020-1 Yes [id number] TAKE 1 [facility] 75 mg 2-15 [id number] TABLET BY ity of tablet 00:00: MOUTH [place] 00 EVERY DAY Medical Branch PRAVASTATIN 2020-1 Yes [id number] 10mg TAKE 1 [facility] 10 mg 2-15 [id number] TABLET BY ity of tablet 00:00: MOUTH [place] 00 EVERY Medical OTHER DAY Branch CLOPIDOGREL 2020-1 Yes [id number] TAKE 1 [facility] 75 mg 2-15 [id number] TABLET BY ity of tablet 00:00: MOUTH [place] 00 EVERY DAY Medical Branch PRAVASTATIN 2020-1 Yes [id number] 10mg TAKE 1 [facility] 10 mg 2-15 [id number] TABLET BY ity of tablet 00:00: MOUTH [place] 00 EVERY Medical OTHER DAY Branch CLOPIDOGREL 2020-1 Yes [id number] TAKE 1 [facility] 75 mg 2-15 [id number] TABLET BY ity of tablet 00:00: MOUTH [place] 00 EVERY DAY Medical Branch PRAVASTATIN 2020-1 Yes [id number] 10mg TAKE 1 [facility] 10 mg 2-15 [id number] TABLET BY ity of tablet 00:00: MOUTH [place] 00 EVERY Medical OTHER DAY Branch CLOPIDOGREL 2020-1 Yes [id number] TAKE 1 [facility] 75 mg 2-15 [id number] TABLET BY ity of tablet 00:00: MOUTH [place] 00 EVERY DAY Medical Branch PRAVASTATIN 2020-1 Yes [id number] 10mg TAKE 1 [facility] 10 mg 2-15 [id number] TABLET BY ity of tablet 00:00: MOUTH [place] 00 EVERY Medical OTHER DAY Branch CLOPIDOGREL 2020-1 Yes [id number] TAKE 1 [facility] 75 mg 2-15 [id number] TABLET BY ity of tablet 00:00: MOUTH [place] 00 EVERY DAY Medical Branch PRAVASTATIN 2020-1 Yes [id number] 10mg TAKE 1 [facility] 10 mg 2-15 [id number] TABLET BY ity of tablet 00:00: MOUTH [place] 00 EVERY Medical OTHER DAY Branch CLOPIDOGREL 2020-1 Yes [id number] TAKE 1 [facility] 75 mg 2-15 [id number] TABLET BY ity of tablet 00:00: MOUTH [place] 00 EVERY DAY Medical Branch PRAVASTATIN 2020-1 Yes [id number] 10mg TAKE 1 [facility] 10 mg 2-15 [id number] TABLET BY ity of tablet 00:00: MOUTH [place] 00 EVERY Medical OTHER DAY Branch CLOPIDOGREL 2020-1 Yes [id number] TAKE 1 [facility] 75 mg 2-15 [id number] TABLET BY ity of tablet 00:00: MOUTH [place] 00 EVERY DAY Medical Branch PRAVASTATIN 2020-1 Yes [id number] 10mg TAKE 1 [facility] 10 mg 2-15 [id number] TABLET BY ity of tablet 00:00: MOUTH [place] 00 EVERY Medical OTHER DAY Branch CLOPIDOGREL 2020-1 Yes [id number] TAKE 1 [facility] 75 mg 2-15 [id number] TABLET BY ity of tablet 00:00: MOUTH [place] 00 EVERY DAY Medical Branch CLOPIDOGREL 2020-1 Yes [id number] TAKE 1 [facility] 75 mg 2-15 [id number] TABLET BY ity of tablet 00:00: MOUTH [place] 00 EVERY DAY Medical Branch CLOPIDOGREL 2020-1 Yes [id number] TAKE 1 [facility] 75 mg 2-15 [id number] TABLET BY ity of tablet 00:00: MOUTH [place] 00 EVERY DAY Medical Branch CLOPIDOGREL 2020-1 Yes [id number] TAKE 1 [facility] 75 mg 2-15 [id number] TABLET BY ity of tablet 00:00: MOUTH [place] 00 EVERY DAY Medical Branch CLOPIDOGREL 2020-1 Yes [id number] TAKE 1 [facility] 75 mg 2-15 [id number] TABLET BY ity of tablet 00:00: MOUTH [place] 00 EVERY DAY Medical Branch CLOPIDOGREL 2020-1 Yes [id number] TAKE 1 [facility] 75 mg 2-15 [id number] TABLET BY ity of tablet 00:00: MOUTH [place] 00 EVERY DAY Medical Branch CLOPIDOGREL 2020-1 Yes [id number] TAKE 1 [facility] 75 mg 2-15 [id number] TABLET BY ity of tablet 00:00: MOUTH [place] 00 EVERY DAY Medical Branch CLOPIDOGREL 2020-1 Yes [id number] TAKE 1 [facility] 75 mg 2-15 [id number] TABLET BY ity of tablet 00:00: [facility] 00 EVERY DAY Medical Branch CLOPIDOGREL 2020-1 Yes [id number] TAKE 1 [facility] 75 mg 2-15 [id number] TABLET BY ity of tablet 00:00: [facility] 00 EVERY DAY Medical Branch CLOPIDOGREL 2020-1 Yes [id number] TAKE 1 [facility] 75 mg 2-15 [id number] TABLET BY ity of tablet 00:00: [facility] 00 EVERY DAY Medical Branch CLOPIDOGREL 2020-1 Yes [id number] TAKE 1 [facility] 75 mg 2-15 [id number] TABLET BY ity of tablet 00:00: [facility] 00 EVERY DAY Medical Branch CLOPIDOGREL 2020-1 Yes [id number] TAKE 1 [facility] 75 mg 2-15 [id number] TABLET BY ity of tablet 00:00: [facility] 00 EVERY DAY Medical Branch CLOPIDOGREL 2020-1 Yes [id number] TAKE 1 [facility] 75 mg 2-15 [id number] TABLET BY ity of tablet 00:00: [facility] 00 EVERY DAY Medical Branch CLOPIDOGREL 2020-1 Yes [id number] TAKE 1 [facility] 75 mg 2-15 [id number] TABLET BY ity of tablet 00:00: [facility] 00 EVERY DAY Medical Branch CLOPIDOGREL 2020-1 Yes [id number] TAKE 1 [facility] 75 mg 2-15 [id number] TABLET BY ity of tablet 00:00: [facility] 00 EVERY DAY Medical Branch CLOPIDOGREL 2020-1 Yes [id number] TAKE 1 [facility] 75 mg 2-15 [id number] TABLET BY ity of tablet 00:00: [facility] 00 EVERY DAY Medical Branch CLOPIDOGREL 2020-1 Yes [id number] TAKE 1 [facility] 75 mg 2-15 [id number] TABLET BY ity of tablet 00:00: [facility] 00 EVERY DAY Medical Branch CLOPIDOGREL 2020-1 Yes [id number] TAKE 1 [facility] 75 mg 2-15 [id number] TABLET BY ity of tablet 00:00: [facility] 00 EVERY DAY Medical Branch CLOPIDOGREL 2020-1 2021- No [id number] TAKE 1 [facility] 75 mg 2-15 02-25 [id number] TABLET BY ity of tablet 00:00: 00:00 [facility] 00 :00 EVERY DAY Medical Branch PRAVASTATIN 2020-1 1- No [id number] 10mg TAKE 1 [facility] 10 mg 2-15 05-11 [id number] TABLET BY ity of tablet 00:00: 00:00 MOUTH [place] 00 :00 EVERY Medical OTHER DAY Branch PRAVASTATIN 2019-09- No [id number] 10mg TAKE 1 [facility] 10 mg 2-15 05-11 [id number] TABLET BY ity of tablet 00:00: 00:00 MOUTH [place] 00 :00 EVERY Medical OTHER DAY Branch gabapentin 2019- Yes [id number] 100mg Take 1 [facility] 100 mg 2-14 [id number] capsule by ity o f capsule 00:00: mouth 3 [place] 00 (three) Medical times Branch daily. gabapentin 2019-09 Yes [id number] 100mg Take 1 [facility] 100 mg 2-14 [id number] capsule by ity o f capsule 00:00: mouth 3 [place] 00 (three) Medical times Branch daily. gabapentin 2019-09 Yes [id number] 100mg Take 1 [facility] 100 mg 2-14 [id number] capsule by ity o f capsule 00:00: mouth 3 [place] 00 (three) Medical times Branch daily. gabapentin 2019-09 Yes [id number] 100mg Take 1 [facility] 100 mg 2-14 [id number] capsule by ity o f capsule 00:00: mouth 3 [place] 00 (three) Medical times Branch daily. gabapentin 2019-09- No [id number] 100mg Take 1 [facility] 100 mg 2-14 - [id number] capsule by ity of capsule 00:00: 00:00 mouth 3 [place] 00 :00 (three) Medical times Branch daily. gabapentin 2019-09- No [id number] 100mg Take 1 [facility] 100 mg 2-14 -05 [id number] capsule by ity of capsule 00:00: 00:00 mouth 3 [place] 00 :00 (three) Medical times Branch daily. gabapentin 2019-09- No [id number] 100mg Take 1 [facility] 100 mg 2-14 12-14 [id number] capsule by ity of capsule 00:00: 00:00 mouth 3 [place] 00 :00 (three) Medical times Branch daily. cefUROXime 2019-09- No [id number] 500mg Take 1 [facility] 500 mg 2-10 12-18 tablet by ity of tablet 00:00: 05:59 mouth 2 [place] 00 :00 (two) Medical times Branch daily for 7 days. cefUROXime 2019-09- No [id number] 500mg Take 1 [facility] 500 mg 2-10 12-18 tablet by ity of tablet 00:00: 05:59 mouth 2 [place] 00 :00 (two) Medical times Branch daily for 7 days. cefUROXime 2019-09- No [id number] 500mg Take 1 [facility] 500 mg 2-10 12-18 tablet by ity of tablet 00:00: 05:59 mouth 2 [place] 00 :00 (two) Medical times Branch daily for 7 days. cefUROXime 2019-09- No [id number] 500mg Take 1 [facility] 500 mg 2-10 12-18 tablet by ity of tablet 00:00: 05:59 mouth 2 [place] 00 :00 (two) Medical times Branch daily for 7 days. cefUROXime 2019-09- No [id number] 500mg Take 1 [facility] 500 mg 2-10 12-18 tablet by ity of tablet 00:00: 05:59 mouth 2 [place] 00 :00 (two) Medical times Branch daily for 7 days. metoprolol 2019- Yes [id number] 25mg Take 1 [facility] succinate 2-09 tablet by ity o f XL 25 mg 24 00:00: mouth 2 [place] tablet 00 (two) Medical times Branch daily. metoprolol 2019- Yes [id number] 25mg Take 1 [facility] succinate 2-09 tablet by ity o f XL 25 mg 24 00:00: mouth 2 [place] [facility] tablet 00 (two) Medical times Branch daily. clopidogreL 2019- Yes [id number] 75mg Take 1 [facility] (PLAVIX) 75 2- [id number] tablet by i ty of mg tablet 00:00: mouth [place] 00 daily. Medical Branch pravastatin 2019- Yes [id number] 10mg Take 1 [facility] 10 mg 2-09 [id number] tablet by ity of tablet 00:00: mouth [place] 00 every Medical other day. Branch metoprolol 2019- Yes [id number] 25mg Take 1 [facility] succinate 2-09 tablet by ity o f XL 25 mg 24 00:00: mouth 2 [place] tablet 00 (two) Medical times Branch daily. clopidogreL 2019- Yes [id number] 75mg Take 1 [facility] (PLAVIX) 75 2-09 [id number] tablet by i ty of mg tablet 00:00: mouth [place] 00 daily. Medical Branch pravastatin 2019- Yes [id number] 10mg Take 1 [facility] 10 mg 2-09 [id number] tablet by ity of tablet 00:00: mouth [place] 00 every Medical other day. Branch metoprolol 2019- Yes [id number] 25mg Take 1 [facility] succinate 2-09 tablet by ity o f XL 25 mg 24 00:00: mouth 2 [place] [facility] tablet 00 (two) Medical times Branch daily. clopidogreL 2020- Yes [id number] 75mg Take 1 [facility] (PLAVIX) 75 2-09 [id number] tablet by i ty of mg tablet 00:00: mouth [place] 00 daily. Medical Branch pravastatin 2020- Yes [id number] 10mg Take 1 [facility] 10 mg 2-09 [id number] tablet by ity of tablet 00:00: mouth [place] 00 every Medical other day. Branch metoprolol 2020- Yes [id number] 25mg Take 1 [facility] succinate 2-09 tablet by ity o f XL 25 mg 24 00:00: mouth 2 [place] tablet 00 (two) Medical times Branch daily. clopidogreL 2020- Yes [id number] 75mg Take 1 [facility] (PLAVIX) 75 2-09 [id number] tablet by i ty of mg tablet 00:00: mouth [place] 00 daily. Medical Branch pravastatin 2019- Yes [id number] 10mg Take 1 [facility] 10 mg 2-09 [id number] tablet by ity of tablet 00:00: mouth [place] 00 every Medical other day. Branch metoprolol 2019- Yes [id number] 25mg Take 1 [facility] succinate 2-09 tablet by ity o f XL 25 mg 24 00:00: mouth 2 [place] tablet 00 (two) Medical times Branch daily. metoprolol 2020- Yes [id number] 25mg Take 1 [facility] succinate 2-09 tablet by ity o f XL 25 mg 24 00:00: mouth 2 [place] tablet 00 (two) Medical times Branch daily. clopidogreL 2020- Yes [id number] 75mg Take 1 [facility] (PLAVIX) 75 2-09 [id number] tablet by i ty of mg tablet 00:00: mouth [place] 00 daily. Medical Branch pravastatin 2020- Yes [id number] 10mg Take 1 [facility] 10 mg 2-09 [id number] tablet by ity of tablet 00:00: mouth [place] 00 every Medical other day. Branch metoprolol 2020- Yes [id number] 25mg Take 1 [facility] succinate 2-09 tablet by ity o f XL 25 mg 24 00:00: mouth 2 [place] tablet 00 (two) Medical times Branch daily. metoprolol 2020-1 Yes [id number] 25mg Take 1 [facility] succinate 2-09 tablet by ity o f XL 25 mg 24 00:00: mouth 2 [place] tablet 00 (two) Medical times Branch daily. metoprolol 2020- Yes [id number] 25mg Take 1 [facility] succinate 2-09 tablet by ity o f XL 25 mg 24 00:00: mouth 2 [place] tablet 00 (two) Medical times Branch daily. metoprolol 2019- Yes [id number] 25mg Take 1 [facility] succinate 2-09 tablet by ity o f XL 25 mg 24 00:00: mouth 2 [place] tablet 00 (two) Medical times Branch daily. metoprolol 2019- Yes [id number] 25mg Take 1 [facility] n[facility] succinate 2-09 tablet by ity o f XL 25 mg 24 00:00: mouth 2 [place] tablet 00 (two) Medical times Branch daily. metoprolol 2019- Yes [id number] 25mg Take 1 [facility] succinate 2-09 tablet by ity o f XL 25 mg 24 00:00: mouth 2 [place] tablet 00 (two) Medical times Branch daily. metoprolol 2019- Yes [id number] 25mg Take 1 [facility] succinate 2-09 tablet by ity o f XL 25 mg 24 00:00: mouth 2 [place] tablet 00 (two) Medical times Branch daily. metoprolol 2019- Yes [id number] 25mg Take 1 [facility] succinate 2-09 tablet by ity o f XL 25 mg 24 00:00: mouth 2 [place] tablet 00 (two) Medical times Branch daily. metoprolol 2019- Yes [id number] 25mg Take 1 [facility] succinate 2-09 tablet by ity o f XL 25 mg 24 00:00: mouth 2 [place] tablet 00 (two) Medical times Branch daily. metoprolol 2020- Yes [id number] 25mg Take 1 [facility] succinate 2-09 tablet by ity o f XL 25 mg 24 00:00: mouth 2 [place] tablet 00 (two) Medical times Branch daily. metoprolol 2020-1 Yes [id number] 25mg Take 1 [facility] succinate 2-09 tablet by ity o f XL 25 mg 24 00:00: mouth 2 [place] tablet 00 (two) Medical times Branch daily. metoprolol 2020-1 Yes [id number] 25mg Take 1 [facility] n[facility] succinate 2-09 tablet by ity o f XL 25 mg 24 00:00: mouth 2 [place] tablet 00 (two) Medical times Branch daily. metoprolol 2020- Yes [id number] 25mg Take 1 [facility] succinate 2-09 tablet by ity o f XL 25 mg 24 00:00: mouth 2 [place] tablet 00 (two) Medical times Branch daily. metoprolol 2019- Yes [id number] 25mg Take 1 [facility] n[facility] succinate 2-09 tablet by ity o f XL 25 mg 24 00:00: mouth 2 [place] tablet 00 (two) Medical times Branch daily. metoprolol 2019- Yes [id number] 25mg Take 1 [facility] succinate 2-09 tablet by ity o f XL 25 mg 24 00:00: mouth 2 [place] tablet 00 (two) Medical times Branch daily. metoprolol 2019- Yes [id number] 25mg Take 1 [facility] succinate 2-09 tablet by ity o f XL 25 mg 24 00:00: mouth 2 [place] tablet 00 (two) Medical times Branch daily. metoprolol 2019- Yes [id number] 25mg Take 1 [facility] succinate 2-09 tablet by ity o f XL 25 mg 24 00:00: mouth 2 [place] tablet 00 (two) Medical times Branch daily. metoprolol 2019- Yes [id number] 25mg Take 1 [facility] succinate 2-09 tablet by ity o f XL 25 mg 24 00:00: mouth 2 [place] tablet 00 (two) Medical times Branch daily. metoprolol 2019- Yes [id number] 25mg Take 1 [facility] n[facility] succinate 2-09 tablet by ity o f XL 25 mg 24 00:00: mouth 2 [place] tablet 00 (two) Medical times Branch daily. metoprolol 2020- Yes [id number] 25mg Take 1 [facility] n[facility] succinate 2-09 tablet by ity o f XL 25 mg 24 00:00: mouth 2 [place] tablet 00 (two) Medical times Branch daily. metoprolol 2020-1 Yes [id number] 25mg Take 1 [facility] succinate 2-09 tablet by ity o f XL 25 mg 24 00:00: mouth 2 [place] tablet 00 (two) Medical times Branch daily. metoprolol 2020-1 Yes [id number] 25mg Take 1 [facility] succinate 2-09 tablet by ity o f XL 25 mg 24 00:00: mouth 2 [place] tablet 00 (two) Medical times Branch daily. metoprolol 2019-09 Yes [id number] 25mg Take 1 [facility] succinate 2-09 tablet by ity o f XL 25 mg 24 00:00: mouth 2 [place] tablet 00 (two) Medical times Branch daily. metoprolol 2019-09 Yes [id number] 25mg Take 1 [facility] succinate 2-09 tablet by ity o f XL 25 mg 24 00:00: mouth 2 [place] tablet 00 (two) Medical times Branch daily. metoprolol 2019-09 Yes [id number] 25mg Take 1 [facility] n[facility] succinate 2-09 tablet by ity o f XL 25 mg 24 00:00: mouth 2 [place] tablet 00 (two) Medical times Branch daily. metoprolol 2019-09 Yes [id number] 25mg Take 1 [facility] n[facility] succinate 2-09 tablet by ity o f XL 25 mg 24 00:00: mouth 2 [place] tablet 00 (two) Medical times Branch daily. metoprolol 2019-09 Yes [id number] 25mg Take 1 [facility] n[facility] succinate 2-09 tablet by ity o f XL 25 mg 24 00:00: mouth 2 [place] tablet 00 (two) Medical times Branch daily. metoprolol 2019-09 Yes [id number] 25mg Take 1 [facility] n[facility] succinate 2-09 tablet by ity o f XL 25 mg 24 00:00: mouth 2 [place] [facility] tablet 00 (two) Medical times Branch daily. metoprolol 2019-09- No [id number] 25mg Take 1 [facility] succinate 2-09 05-21 tablet by ity of XL 25 mg 24 00:00: 00:00 mouth 2 [place] hr tablet 00 :00 (two) Medical times Branch daily. clopidogreL 2019-09- No [id number] 75mg Take 1 [facility] (PLAVIX) 75 10-26 [id number] tablet by ity of mg tablet 00:00: 00:00 mouth [place] 00 :00 daily. Medical Branch pravastatin 2019-09- No [id number] 10mg Take 1 [facility] 10 mg 10-26 [id number] tablet by ity of tablet 00:00: 00:00 mouth [place] 00 :00 every Medical other day. Branch tiZANidine 2019-09 Yes [id number] 4mg Take 1-2 [facility] 4 mg tablet 2-07 [id number] tablets by ity of 00:00: mouth [place] 00 every 8 Medical (eight) Branch hours as needed (muscle pain or spasm). metformin 2019-09 Yes [id number] 500mg Take 1 U nivers ER 500 mg 2-07 tablet by ity o f 24 hr 00:00: mouth 2 [place] tablet 00 (two) Medical times Branch daily with meals. triamterene 2019-09 Yes [id number] 1{tbl} Take 1 [facility] -hydrochlor 2-07 tablet by ity of othiazid 00:00: mouth [place] 37.5-25 mg 00 daily. Medical tablet Branch tiZANidine 2019-09 Yes [id number] 4mg Take 1-2 [facility] 4 mg tablet 2-07 [id number] tablets by ity of 00:00: mouth [place] 00 every 8 Medical (eight) Branch hours as needed (muscle pain or spasm). metformin 2019-09 Yes [id number] 500mg Take 1 U nivers ER 500 mg 2-07 tablet by ity o f 24 hr 00:00: mouth 2 [place] tablet 00 (two) Medical times Branch daily with meals. triamterene 2019-09 Yes [id number] 1{tbl} Take 1 [facility] -hydrochlor 2-07 tablet by ity of othiazid 00:00: mouth [place] 37.5-25 mg 00 daily. Medical tablet Branch tiZANidine 2019-09 Yes [id number] 4mg Take 1-2 [facility] 4 mg tablet 2-07 [id number] tablets by ity of 00:00: mouth [place] 00 every 8 Medical (eight) Branch hours as needed (muscle pain or spasm). metformin 2019-09 Yes [id number] 500mg Take 1 [facility] nivers ER 500 mg 2-07 tablet by ity o f 24 hr 00:00: mouth 2 [place] tablet 00 (two) Medical times Branch daily with meals. triamterene 2019-09 Yes [id number] 1{tbl} Take 1 [facility] -hydrochlor 2-07 tablet by ity of othiazid 00:00: mouth [place] 37.5-25 mg 00 daily. Medical tablet Branch tiZANidine 2019-09 Yes [id number] 4mg Take 1-2 [facility] 4 mg tablet 2-07 [id number] tablets by ity of 00:00: mouth [place] 00 every 8 Medical (eight) Branch hours as needed (muscle pain or spasm). metformin 2019-09 Yes [id number] 500mg Take 1 [facility] ER 500 mg 2-07 tablet by [facility] o f 24 hr 00:00: mouth 2 [place] tablet 00 (two) Medical times Branch daily with meals. triamterene 2019-09 Yes [id number] 1{tbl} Take 1 [facility] -hydrochlor 2-07 tablet by [facility] of othiazid 00:00: mouth [place] 37.5-25 mg 00 daily. Medical tablet Branch tiZANidine 2019-09 Yes [id number] 4mg Take 1-2 [facility] 4 mg tablet 2-07 [id number] tablets by [facility] of 00:00: mouth [place] 00 every 8 Medical (eight) Branch hours as needed (muscle pain or spasm). metformin 2019-09 Yes [id number] 500mg Take 1 [facility] 500 mg 2-07 tablet by [facility] o f 24 hr 00:00: mouth 2 [place] tablet 00 (two) Medical times Branch daily with meals. triamterene 2019-09 Yes [id number] 1{tbl} Take 1 [facility] -hydrochlor 2-07 tablet by [facility] of othiazid 00:00: mouth [place] 37.5-25 mg 00 daily. Medical tablet Branch tiZANidine 2019-09 Yes [id number] 4mg Take 1-2 [facility] 4 mg tablet 2-07 [id number] tablets by [facility] of 00:00: mouth [place] 00 every 8 Medical (eight) Branch hours as needed (muscle pain or spasm). metformin 2019-09 Yes [id number] 500mg Take 1 [facility] 500 mg 2-07 tablet by [facility] o f 24 hr 00:00: mouth 2 [place] tablet 00 (two) Medical times Branch daily with meals. triamterene 2019-09 Yes [id number] 1{tbl} Take 1 [facility] -hydrochlor 2-07 tablet by [facility] of othiazid 00:00: mouth [place] 37.5-25 mg 00 daily. Medical tablet Branch tiZANidine 2019-09 Yes [id number] 4mg Take 1-2 [facility] 4 mg tablet 2-07 [id number] tablets by [facility] of 00:00: mouth [place] 00 every 8 Medical (eight) Branch hours as needed (muscle pain or spasm). metformin 2019-09 Yes [id number] 500mg Take 1 [facility] 500 mg 2-07 tablet by [facility] o f 24 hr 00:00: mouth 2 [place] tablet 00 (two) Medical times Branch daily with meals. triamterene 2019-09 Yes [id number] 1{tbl} Take 1 [facility] -hydrochlor 2-07 tablet by [facility] of othiazid 00:00: mouth [place] 37.5-25 mg 00 daily. Medical tablet Branch tiZANidine 2019-09 Yes [id number] 4mg Take 1-2 [facility] 4 mg tablet 2-07 [id number] tablets by [facility] of 00:00: mouth [place] 00 every 8 Medical (eight) Branch hours as needed (muscle pain or spasm). metformin 2019-09 Yes [id number] 500mg Take 1 [facility] 500 mg 2-07 tablet by [facility] o f 24 hr 00:00: mouth 2 [place] tablet 00 (two) Medical times Branch daily with meals. triamterene 2019-09 Yes [id number] 1{tbl} Take 1 [facility] -hydrochlor 2-07 tablet by [facility] of othiazid 00:00: mouth [place] 37.5-25 mg 00 daily. Medical tablet Branch tiZANidine 2019-09 Yes [id number] 4mg Take 1-2 [facility] 4 mg tablet 2-07 [id number] tablets by [facility] of 00:00: mouth [place] 00 every 8 Medical (eight) Branch hours as needed (muscle pain or spasm). metformin 2019-09 Yes [id number] 500mg Take 1 [facility] 500 mg 2-07 tablet by [facility] o f 24 hr 00:00: mouth 2 [place] tablet 00 (two) Medical times Branch daily with meals. triamterene 2019-09 Yes [id number] 1{tbl} Take 1 [facility] -hydrochlor 2-07 tablet by [facility] of othiazid 00:00: mouth [place] 37.5-25 mg 00 daily. Medical tablet Branch tiZANidine 2019-09 Yes [id number] 4mg Take 1-2 [facility] 4 mg tablet 2-07 [id number] tablets by [facility] of 00:00: mouth [place] 00 every 8 Medical (eight) Branch hours as needed (muscle pain or spasm). metformin 2019-09 Yes [id number] 500mg Take 1 [facility] 500 mg 2-07 tablet by [facility] o f 24 hr 00:00: mouth 2 [place] tablet 00 (two) Medical times Branch daily with meals. triamterene 2019-09 Yes [id number] 1{tbl} Take 1 [facility] -hydrochlor 2-07 tablet by [facility] of othiazid 00:00: mouth [place] 37.5-25 mg 00 daily. Medical tablet Branch tiZANidine 2019-09 Yes [id number] 4mg Take 1-2 [facility] 4 mg tablet 2-07 [id number] tablets by [facility] of 00:00: mouth [place] 00 every 8 Medical (eight) Branch hours as needed (muscle pain or spasm). metformin 2019-09 Yes [id number] 500mg Take 1 [facility] 500 mg 2-07 tablet by [facility] o f 24 hr 00:00: mouth 2 [place] tablet 00 (two) Medical times Branch daily with meals. triamterene 2019-09 Yes [id number] 1{tbl} Take 1 [facility] -hydrochlor 2-07 tablet by [facility] of othiazid 00:00: mouth [place] 37.5-25 mg 00 daily. Medical tablet Branch tiZANidine 2019-09 Yes [id number] 4mg Take 1-2 [facility] 4 mg tablet 2-07 [id number] tablets by [facility] of 00:00: mouth [place] 00 every 8 Medical (eight) Branch hours as needed (muscle pain or spasm). metformin 2019-09 Yes [id number] 500mg Take 1 [facility] 500 mg 2-07 tablet by [facility] o f 24 hr 00:00: mouth 2 [place] tablet 00 (two) Medical times Branch daily with meals. triamterene 2019-09 Yes [id number] 1{tbl} Take 1 [facility] -hydrochlor 2-07 tablet by [facility] of othiazid 00:00: mouth [place] 37.5-25 mg 00 daily. Medical tablet Branch tiZANidine 2019-09 Yes [id number] 4mg Take 1-2 [facility] 4 mg tablet 2-07 [id number] tablets by [facility] of 00:00: mouth [place] 00 every 8 Medical (eight) Branch hours as needed (muscle pain or spasm). metformin 2019-09 Yes [id number] 500mg Take 1 [facility] 500 mg 2-07 tablet by [facility] o f 24 hr 00:00: mouth 2 [place] tablet 00 (two) Medical times Branch daily with meals. triamterene 2019-09 Yes [id number] 1{tbl} Take 1 [facility] -hydrochlor 2-07 tablet by [facility] of othiazid 00:00: mouth [place] 37.5-25 mg 00 daily. Medical tablet Branch tiZANidine 2019-09 Yes [id number] 4mg Take 1-2 [facility] 4 mg tablet 2-07 [id number] tablets by [facility] of 00:00: mouth [place] 00 every 8 Medical (eight) Branch hours as needed (muscle pain or spasm). metformin 2019-09 Yes [id number] 500mg Take 1 [facility] 500 mg 2-07 tablet by [facility] o f 24 hr 00:00: mouth 2 [place] tablet 00 (two) Medical times Branch daily with meals. triamterene 2019-09 Yes [id number] 1{tbl} Take 1 [facility] -hydrochlor 2-07 tablet by [facility] of othiazid 00:00: mouth [place] 37.5-25 mg 00 daily. Medical tablet Branch tiZANidine 2019-09 Yes [id number] 4mg Take 1-2 [facility] 4 mg tablet 2-07 [id number] tablets by [facility] of 00:00: mouth [place] 00 every 8 Medical (eight) Branch hours as needed (muscle pain or spasm). metformin 2019-09 Yes [id number] 500mg Take 1 [facility] 500 mg 2-07 tablet by [facility] o f 24 hr 00:00: mouth 2 [place] tablet 00 (two) Medical times Branch daily with meals. triamterene 2019-09 Yes [id number] 1{tbl} Take 1 [facility] -hydrochlor 2-07 tablet by [facility] of othiazid 00:00: mouth [place] 37.5-25 mg 00 daily. Medical tablet Branch tiZANidine 2019-09 Yes [id number] 4mg Take 1-2 [facility] 4 mg tablet 2-07 [id number] tablets by [facility] of 00:00: mouth [place] 00 every 8 Medical (eight) Branch hours as needed (muscle pain or spasm). metformin 2019-09 Yes [id number] 500mg Take 1 [facility] 500 mg 2-07 tablet by [facility] o f 24 hr 00:00: mouth 2 [place] tablet 00 (two) Medical times Branch daily with meals. triamterene 2019-09 Yes [id number] 1{tbl} Take 1 [facility] -hydrochlor 2-07 tablet by [facility] of othiazid 00:00: mouth [place] 37.5-25 mg 00 daily. Medical tablet Branch tiZANidine 2019-09 Yes [id number] 4mg Take 1-2 [facility] 4 mg tablet 2-07 [id number] tablets by [facility] of 00:00: mouth [place] 00 every 8 Medical (eight) Branch hours as needed (muscle pain or spasm). metformin 2019-09 Yes [id number] 500mg Take 1 [facility] 500 mg 2-07 tablet by [facility] o f 24 hr 00:00: mouth 2 [place] tablet 00 (two) Medical times Branch daily with meals. triamterene 2019-09 Yes [id number] 1{tbl} Take 1 [facility] -hydrochlor 2-07 tablet by [facility] of othiazid 00:00: mouth [place] 37.5-25 mg 00 daily. Medical tablet Branch tiZANidine 2019-09 Yes [id number] 4mg Take 1-2 [facility] 4 mg tablet 2-07 [id number] tablets by [facility] of 00:00: mouth [place] 00 every 8 Medical (eight) Branch hours as needed (muscle pain or spasm). metformin 2019-09 Yes [id number] 500mg Take 1 [facility] 500 mg 2-07 tablet by [facility] o f 24 hr 00:00: mouth 2 [place] tablet 00 (two) Medical times Branch daily with meals. triamterene 2019-09 Yes [id number] 1{tbl} Take 1 [facility] -hydrochlor 2-07 tablet by [facility] of othiazid 00:00: mouth [place] 37.5-25 mg 00 daily. Medical tablet Branch tiZANidine 2019-09 Yes [id number] 4mg Take 1-2 [facility] 4 mg tablet 2-07 [id number] tablets by [facility] of 00:00: mouth [place] 00 every 8 Medical (eight) Branch hours as needed (muscle pain or spasm). metformin 2019-09 Yes [id number] 500mg Take 1 [facility] 500 mg 2-07 tablet by [facility] o f 24 hr 00:00: mouth 2 [place] tablet 00 (two) Medical times Branch daily with meals. triamterene 2019-09 Yes [id number] 1{tbl} Take 1 [facility] -hydrochlor 2-07 tablet by [facility] of othiazid 00:00: mouth [place] 37.5-25 mg 00 daily. Medical tablet Branch tiZANidine 2019-09 Yes [id number] 4mg Take 1-2 [facility] 4 mg tablet 2-07 [id number] tablets by [facility] of 00:00: mouth [place] 00 every 8 Medical (eight) Branch hours as needed (muscle pain or spasm). metformin 2019-09 Yes [id number] 500mg Take 1 [facility] 500 mg 2-07 tablet by [facility] o f 24 hr 00:00: mouth 2 [place] tablet 00 (two) Medical times Branch daily with meals. triamterene 2019-09 Yes [id number] 1{tbl} Take 1 [facility] -hydrochlor 2-07 tablet by [facility] of othiazid 00:00: mouth [place] 37.5-25 mg 00 daily. Medical tablet Branch tiZANidine 2019-09 Yes [id number] 4mg Take 1-2 [facility] 4 mg tablet 2-07 [id number] tablets by [facility] of 00:00: mouth [place] 00 every 8 Medical (eight) Branch hours as needed (muscle pain or spasm). metformin 2019-09 Yes [id number] 500mg Take 1 [facility] 500 mg 2-07 tablet by [facility] o f 24 hr 00:00: mouth 2 [place] tablet 00 (two) Medical times Branch daily with meals. triamterene 2019-09 Yes [id number] 1{tbl} Take 1 [facility] -hydrochlor 2-07 tablet by [facility] of othiazid 00:00: mouth [place] 37.5-25 mg 00 daily. Medical tablet Branch tiZANidine 2019-09 Yes [id number] 4mg Take 1-2 [facility] 4 mg tablet 2-07 [id number] tablets by [facility] of 00:00: mouth [place] 00 every 8 Medical (eight) Branch hours as needed (muscle pain or spasm). metformin 2019-09 Yes [id number] 500mg Take 1 [facility] 500 mg 2-07 tablet by [facility] o f 24 hr 00:00: mouth 2 [place] tablet 00 (two) Medical times Branch daily with meals. triamterene 2019-09 Yes [id number] 1{tbl} Take 1 [facility] -hydrochlor 2-07 tablet by [facility] of othiazid 00:00: mouth [place] 37.5-25 mg 00 daily. Medical tablet Branch tiZANidine 2019-09 Yes [id number] 4mg Take 1-2 [facility] 4 mg tablet 2-07 [id number] tablets by [facility] of 00:00: mouth [place] 00 every 8 Medical (eight) Branch hours as needed (muscle pain or spasm). metformin 2019-09 Yes [id number] 500mg Take 1 [facility] 500 mg 2-07 tablet by [facility] o f 24 hr 00:00: mouth 2 [place] tablet 00 (two) Medical times Branch daily with meals. triamterene 2019-09 Yes [id number] 1{tbl} Take 1 [facility] -hydrochlor 2-07 tablet by [facility] of othiazid 00:00: mouth [place] 37.5-25 mg 00 daily. Medical tablet Branch tiZANidine 2019-09 Yes [id number] 4mg Take 1-2 [facility] 4 mg tablet 2-07 [id number] tablets by [facility] of 00:00: mouth [place] 00 every 8 Medical (eight) Branch hours as needed (muscle pain or spasm). metformin 2019-09 Yes [id number] 500mg Take 1 [facility] 500 mg 2-07 tablet by [facility] o f 24 hr 00:00: mouth 2 [place] tablet 00 (two) Medical times Branch daily with meals. triamterene 2019-09 Yes [id number] 1{tbl} Take 1 [facility] -hydrochlor 2-07 tablet by [facility] of othiazid 00:00: mouth [place] 37.5-25 mg 00 daily. Medical tablet Branch tiZANidine 2019-09 Yes [id number] 4mg Take 1-2 [facility] 4 mg tablet 2-07 [id number] tablets by [facility] of 00:00: mouth [place] 00 every 8 Medical (eight) Branch hours as needed (muscle pain or spasm). metformin 2019-09 Yes [id number] 500mg Take 1 [facility] 500 mg 2-07 tablet by [facility] o f 24 hr 00:00: mouth 2 [place] tablet 00 (two) Medical times Branch daily with meals. triamterene 2019-09 Yes [id number] 1{tbl} Take 1 [facility] -hydrochlor 2-07 tablet by [facility] of othiazid 00:00: mouth [place] 37.5-25 mg 00 daily. Medical tablet Branch tiZANidine 2019-09 Yes [id number] 4mg Take 1-2 [facility] 4 mg tablet 2-07 [id number] tablets by [facility] of 00:00: mouth [place] 00 every 8 Medical (eight) Branch hours as needed (muscle pain or spasm). metformin 2019-09 Yes [id number] 500mg Take 1 [facility] 500 mg 2-07 tablet by [facility] o f 24 hr 00:00: mouth 2 [place] tablet 00 (two) Medical times Branch daily with meals. triamterene 2019-09 Yes [id number] 1{tbl} Take 1 [facility] -hydrochlor 2-07 tablet by [facility] of othiazid 00:00: mouth [place] 37.5-25 mg 00 daily. Medical tablet Branch tiZANidine 2019-09 Yes [id number] 4mg Take 1-2 [facility] 4 mg tablet 2-07 [id number] tablets by [facility] of 00:00: mouth [place] 00 every 8 Medical (eight) Branch hours as needed (muscle pain or spasm). metformin 2019-09 Yes [id number] 500mg Take 1 [facility] 500 mg 2-07 tablet by [facility] o f 24 hr 00:00: mouth 2 [place] tablet 00 (two) Medical times Branch daily with meals. triamterene 2019-09 Yes [id number] 1{tbl} Take 1 [facility] -hydrochlor 2-07 tablet by [facility] of othiazid 00:00: mouth [place] 37.5-25 mg 00 daily. Medical tablet Branch tiZANidine 2019-09 Yes [id number] 4mg Take 1-2 [facility] 4 mg tablet 2-07 [id number] tablets by [facility] of 00:00: mouth [place] 00 every 8 Medical (eight) Branch hours as needed (muscle pain or spasm). metformin 2019-09 Yes [id number] 500mg Take 1 [facility] 500 mg 2-07 tablet by [facility] o f 24 hr 00:00: mouth 2 [place] tablet 00 (two) Medical times Branch daily with meals. triamterene 2019-09 Yes [id number] 1{tbl} Take 1 [facility] -hydrochlor 2-07 tablet by [facility] of othiazid 00:00: mouth [place] 37.5-25 mg 00 daily. Medical tablet Branch tiZANidine 2019-09 Yes [id number] 4mg Take 1-2 [facility] 4 mg tablet 2-07 [id number] tablets by [facility] of 00:00: mouth [place] 00 every 8 Medical (eight) Branch hours as needed (muscle pain or spasm). metformin 2019-09 Yes [id number] 500mg Take 1 [facility] 500 mg 2-07 tablet by [facility] o f 24 hr 00:00: mouth 2 [place] tablet 00 (two) Medical times Branch daily with meals. triamterene 2019-09 Yes [id number] 1{tbl} Take 1 [facility] -hydrochlor 2-07 tablet by [facility] of othiazid 00:00: mouth [place] 37.5-25 mg 00 daily. Medical tablet Branch tiZANidine 2019-09 Yes [id number] 4mg Take 1-2 [facility] 4 mg tablet 2-07 [id number] tablets by [facility] of 00:00: mouth [place] 00 every 8 Medical (eight) Branch hours as needed (muscle pain or spasm). metformin 2019-09 Yes [id number] 500mg Take 1 [facility] 500 mg 2-07 tablet by [facility] o f 24 hr 00:00: mouth 2 [place] tablet 00 (two) Medical times Branch daily with meals. triamterene 2019-09 Yes [id number] 1{tbl} Take 1 [facility] -hydrochlor 2-07 tablet by [facility] of othiazid 00:00: mouth [place] 37.5-25 mg 00 daily. Medical tablet Branch tiZANidine 2019-09 Yes [id number] 4mg Take 1-2 [facility] 4 mg tablet 2-07 [id number] tablets by [facility] of 00:00: mouth [place] 00 every 8 Medical (eight) Branch hours as needed (muscle pain or spasm). metformin 2019-09 Yes [id number] 500mg Take 1 [facility] 500 mg 2-07 tablet by [facility] o f 24 hr 00:00: mouth 2 [place] tablet 00 (two) Medical times Branch daily with meals. triamterene 2019-09 Yes [id number] 1{tbl} Take 1 [facility] -hydrochlor 2-07 tablet by [facility] of othiazid 00:00: mouth [place] 37.5-25 mg 00 daily. Medical tablet Branch tiZANidine 2019-09 Yes [id number] 4mg Take 1-2 [facility] 4 mg tablet 2-07 [id number] tablets by [facility] of 00:00: mouth [place] 00 every 8 Medical (eight) Branch hours as needed (muscle pain or spasm). metformin 2019-09 Yes [id number] 500mg Take 1 [facility] 500 mg 2-07 tablet by [facility] o f 24 hr 00:00: mouth 2 [place] tablet 00 (two) Medical times Branch daily with meals. triamterene 2019-09 Yes [id number] 1{tbl} Take 1 [facility] -hydrochlor 2-07 tablet by [facility] of othiazid 00:00: mouth [place] 37.5-25 mg 00 daily. Medical tablet Branch tiZANidine 2019-09 Yes [id number] 4mg Take 1-2 [facility] 4 mg tablet 2-07 [id number] tablets by [facility] of 00:00: mouth [place] 00 every 8 Medical (eight) Branch hours as needed (muscle pain or spasm). metformin 2019-09 Yes [id number] 500mg Take 1 [facility] 500 mg 2-07 tablet by [facility] o f 24 hr 00:00: mouth 2 [place] tablet 00 (two) Medical times Branch daily with meals. triamterene 2019-09 Yes [id number] 1{tbl} Take 1 [facility] -hydrochlor 2-07 tablet by [facility] of othiazid 00:00: mouth [place] 37.5-25 mg 00 daily. Medical tablet Branch tiZANidine 2019-09 Yes [id number] 4mg Take 1-2 [facility] 4 mg tablet 2-07 [id number] tablets by [facility] of 00:00: mouth [place] 00 every 8 Medical (eight) Branch hours as needed (muscle pain or spasm). metformin 2019-09 Yes [id number] 500mg Take 1 [facility] 500 mg 2-07 tablet by [facility] o f 24 hr 00:00: mouth 2 [place] tablet 00 (two) Medical times Branch daily with meals. triamterene 2019-09 Yes [id number] 1{tbl} Take 1 [facility] -hydrochlor 2-07 tablet by [facility] of othiazid 00:00: mouth [place] 37.5-25 mg 00 daily. Medical tablet Branch tiZANidine 2019-09 Yes [id number] 4mg Take 1-2 [facility] 4 mg tablet 2-07 [id number] tablets by [facility] of 00:00: mouth [place] 00 every 8 Medical (eight) Branch hours as needed (muscle pain or spasm). triamterene 2019-09 Yes [id number] 1{tbl} Take 1 [facility] -hydrochlor 2-07 tablet by [facility] of othiazid 00:00: mouth [place] 37.5-25 mg 00 daily. Medical tablet Branch tiZANidine 2019-09 Yes [id number] 4mg Take 1-2 [facility] 4 mg tablet 2-07 [id number] tablets by [facility] of 00:00: mouth [place] 00 every 8 Medical (eight) Branch hours as needed (muscle pain or spasm). triamterene 2019-09 Yes [id number] 1{tbl} Take 1 [facility] -hydrochlor 2-07 tablet by [facility] of othiazid 00:00: mouth [place] 37.5-25 mg 00 daily. Medical tablet Branch tiZANidine 2020- Yes [id number] 4mg Take 1-2 [facility] 4 mg tablet 2-07 [id number] tablets by [facility] of 00:00: mouth [place] 00 every 8 Medical (eight) Branch hours as needed (muscle pain or spasm). triamterene 2020- Yes [id number] 1{tbl} Take 1 [facility] -hydrochlor 2-07 tablet by [facility] of othiazid 00:00: mouth [place] 37.5-25 mg 00 daily. Medical tablet Branch tiZANidine 2019- Yes [id number] 4mg Take 1-2 [facility] 4 mg tablet 2-07 [id number] tablets by [facility] of 00:00: mouth [place] 00 every 8 Medical (eight) Branch hours as needed (muscle pain or spasm). triamterene 2019- Yes [id number] 1{tbl} Take 1 [facility] -hydrochlor 2-07 tablet by [facility] of othiazid 00:00: mouth [place] 37.5-25 mg 00 daily. Medical tablet Branch tiZANidine 2019- Yes [id number] 4mg Take 1-2 [facility] 4 mg tablet 2-07 [id number] tablets by [facility] of 00:00: mouth [place] 00 every 8 Medical (eight) Branch hours as needed (muscle pain or spasm). triamterene 2019- Yes [id number] 1{tbl} Take 1 [facility] -hydrochlor 2-07 tablet by [facility] of othiazid 00:00: mouth [place] 37.5-25 mg 00 daily. Medical tablet Branch tiZANidine 2019- Yes [id number] 4mg Take 1-2 [facility] 4 mg tablet 2-07 [id number] tablets by [facility] of 00:00: mouth [place] 00 every 8 Medical (eight) Branch hours as needed (muscle pain or spasm). triamterene 2019- Yes [id number] 1{tbl} Take 1 [facility] -hydrochlor 2-07 tablet by [facility] of othiazid 00:00: mouth [place] 37.5-25 mg 00 daily. Medical tablet Branch tiZANidine 2019- Yes [id number] 4mg Take 1-2 [facility] 4 mg tablet 2-07 [id number] tablets by [facility] of 00:00: mouth [place] 00 every 8 Medical (eight) Branch hours as needed (muscle pain or spasm). triamterene 2019- Yes [id number] 1{tbl} Take 1 [facility] -hydrochlor 2-07 tablet by [facility]y of othiazid 00:00: mouth [place] 37.5-25 mg 00 daily. Medical tablet Branch tiZANidine 2019- Yes [id number] 4mg Take 1-2 [facility] 4 mg tablet 2-07 [id number] tablets by [facility] of 00:00: mouth [place] 00 every 8 Medical (eight) Branch hours as needed (muscle pain or spasm). triamterene 2019- Yes [id number] 1{tbl} Take 1 [facility] -hydrochlor 2-07 tablet by [facility] of othiazid 00:00: mouth [place] 37.5-25 mg 00 daily. Medical tablet Branch tiZANidine 2019-09 Yes [id number] 4mg Take 1-2 [facility] 4 mg tablet 2-07 [id number] tablets by [facility] of 00:00: mouth [place] 00 every 8 Medical (eight) Branch hours as needed (muscle pain or spasm). tiZANidine 2019-09 Yes [id number] 4mg Take 1-2 [facility] 4 mg tablet 2-07 [id number] tablets by [facility] of 00:00: mouth [place] 00 every 8 Medical (eight) Branch hours as needed (muscle pain or spasm). tiZANidine 2019-09 Yes [id number] 4mg Take 1-2 [facility] 4 mg tablet 2-07 [id number] tablets by [facility] of 00:00: mouth [place] 00 every 8 Medical (eight) Branch hours as needed (muscle pain or spasm). tiZANidine 2019-09 Yes [id number] 4mg Take 1-2 [facility] 4 mg tablet 2-07 [id number] tablets by [facility] of 00:00: mouth [place] 00 every 8 Medical (eight) Branch hours as needed (muscle pain or spasm). tiZANidine 2019-09 Yes [id number] 4mg Take 1-2 [facility] 4 mg tablet 2-07 [id number] tablets by [facility] of 00:00: mouth [place] 00 every 8 Medical (eight) Branch hours as needed (muscle pain or spasm). tiZANidine 2019-09 Yes [id number] 4mg Take 1-2 [facility] 4 mg tablet 2-07 [id number] tablets by [facility] of 00:00: mouth [place] 00 every 8 Medical (eight) Branch hours as needed (muscle pain or spasm). tiZANidine Yes [id number] 4mg Take 1-2 [facility] 4 mg tablet 2- [id number] tablets by [facility] of 00:00: mouth [place] 00 every 8 Medical (eight) Branch hours as needed (muscle pain or spasm). tiZANidine 2019- Yes [id number] 4mg Take 1-2 [facility] 4 mg tablet 2- [id number] tablets by [facility] of 00:00: mouth [place] 00 every 8 Medical (eight) Branch hours as needed (muscle pain or spasm). tiZANidine 2019-09 Yes [id number] 4mg Take 1-2 [facility] 4 mg tablet 2- [id number] tablets by [facility] of 00:00: mouth [place] 00 every 8 Medical (eight) Branch hours as needed (muscle pain or spasm). tiZANidine 2019-09 Yes [id number] 4mg Take 1-2 [facility] 4 mg tablet 2- [id number] tablets by [facility] of 00:00: mouth [place] 00 every 8 Medical (eight) Branch hours as needed (muscle pain or spasm). tiZANidine 2019-09 Yes [id number] 4mg Take 1-2 [facility] 4 mg tablet 2- [id number] tablets by [facility] of 00:00: mouth [place] 00 every 8 Medical (eight) Branch hours as needed (muscle pain or spasm). tiZANidine 2019-09 Yes [id number] 4mg Take 1-2 [facility] 4 mg tablet 2- [id number] tablets by [facility] of 00:00: mouth [place] 00 every 8 Medical (eight) Branch hours as needed (muscle pain or spasm). tiZANidine 2019-09 Yes [id number] 4mg Take 1-2 [facility] 4 mg tablet 2- [id number] tablets by [facility] of 00:00: mouth [place] 00 every 8 Medical (eight) Branch hours as needed (muscle pain or spasm). tiZANidine 2019-09 Yes [id number] 4mg Take 1-2 [facility] 4 mg tablet 2- [id number] tablets by [facility] of 00:00: mouth [place] 00 every 8 Medical (eight) Branch hours as needed (muscle pain or spasm). tiZANidine 2019-09 Yes [id number] 4mg Take 1-2 [facility] 4 mg tablet 2- [id number] tablets by [facility] of 00:00: mouth [place] 00 every 8 Medical (eight) Branch hours as needed (muscle pain or spasm). tiZANidine 2019-09 Yes [id number] 4mg Take 1-2 [facility] 4 mg tablet 10-24 [id number] tablets by [facility] of 00:00: mouth [place] 00 every 8 Medical (eight) Branch hours as needed (muscle pain or spasm). triamterene 2019-09- No [id number] 1{tbl} Take 1 [facility] -hydrochlor 2-03 22-08 tablet by it y of othiazid 00:00: 00:00 mouth [place] 37.5-25 mg 00 :00 daily. Medical tablet Branch metformin 2019-09 No [id number] 500mg Take 1 [facility] ER 500 mg 2-03 21- tablet by [facility] of 24 hr 00:00: 00:00 mouth 2 [place] tablet 00 :00 (two) Medical times Branch daily with meals. metformin 2019-09 No [id number] 500mg Take 1 [facility] ER 500 mg 2- tablet by [facility] of 24 hr 00:00: 00:00 mouth 2 [place] tablet 00 :00 (two) Medical times Branch daily with meals. triamterene 2019-09- No [id number] 1{tbl} Take 1 [facility] -hydrochlor 2-03 28- tablet by it y of othiazid 00:00: 00:00 mouth [place] 37.5-25 mg 00 :00 daily. Medical tablet Branch triamterene 2019-09- No [id number] 1{tbl} Take 1 [facility] -hydrochlor 2-03 28- tablet by it y of othiazid 00:00: 00:00 mouth [place] 37.5-25 mg 00 :00 daily. Medical tablet Branch METFORMIN 2019-09 Yes [id number] TAKE 1 [facility] [place] ER 750 mg 1-28 TABLET BY ity o f 24 hr 00:00: MOUTH [place] tablet 00 TWICE A Medical DAY WITH Branch MEALS METFORMIN 2019-09 Yes [id number] TAKE 1 [facility] [place] ER 750 mg 1-28 TABLET BY ity o f 24 hr 00:00: MOUTH [place] tablet 00 TWICE A Medical DAY WITH Branch MEALS METFORMIN 2019-09- No [id number] TAKE 1 [facility] ER 750 mg 1-28 12-07 TABLET BY [facility] of 24 hr 00:00: 00:00 MOUTH [place] tablet 00 :00 TWICE A Medical DAY WITH Branch MEALS METFORMIN 2019-09- No [id number] TAKE 1 [facility] ER 750 mg 10-14 TABLET BY ity of 24 hr 00:00: 00:00 MOUTH [place] tablet 00 :00 TWICE A Medical DAY WITH Branch MEALS DOCOSAHEXAN 2019-09 Yes Take by [facility] OIC 0-23 mouth. it[facility] of ACID/EPA 17:03: [place] (FISH OIL 43 Medical ORAL) Branch alcaftadine 2019-[address] [facility] [place] (LASTACAFT) 0-23 each eye. ity of 0.25 % Drop 17:03: [place] [address] Medical Branch CYCLOSPORIN 2019-[address] [facility] [place] E (RESTASIS 0-23 each eye. ity of OPHTHALMIC) 17:03: [place] [address] Medical Branch DOCOSAHEXAN 2019-09 Yes Take by [facility] OIC 0-23 mouth. ity of ACID/EPA 17:03: [place] (FISH OIL 43 Medical ORAL) Branch vitamin E 2019-09 Yes 1000U Take 1,000 [facility] 1,000 unit 0-23 Units by ity o f capsule 17:03: mouth [place] 43 daily. Medical Branch Magnesium 2019- Yes Take by [facility] 250 mg Tab 0-23 mouth. ity of 17:03: [place] [address] [facility] vitamin B-6 2019- Yes 100mg Take 100 [facility] (VITAMIN 0-23 mg by ity of B-6) 100 mg 17:03: mouth [place] tablet 43 daily. Medical Branch CALCIUM 2019- Yes Take by [facility] CARBONATE/V 0-23 mouth. ity of ITAMIN D3 17:03: [place] (VITAMIN 43 Medical D-3 ORAL) Branch alcaftadine 2019-[address] [facility] [place] (LASTACAFT) 0-23 each eye. ity of 0.25 % Drop 17:03: [place] [address] [facility] CYCLOSPORIN 2019-[address] [facility] [place] [facility] (RESTASIS 0-23 each eye. ity of OPHTHALMIC) 17:03: [place] [address] [facility] DOCOSAHEXAN 2019- Yes Take by [facility] vers OIC 0-23 mouth. ity of ACID/EPA 17:03: [place] (FISH OIL 43 Medical ORAL) Branch vitamin E 2019- Yes 1000U Take 1,000 [facility] 1,000 unit 0-23 Units by ity o f capsule 17:03: mouth [place] 43 daily. Medical Branch Magnesium 2020- Yes Take by [facility] 250 mg Tab 0-23 mouth. ity of 17:03: [place] [address] [facility] vitamin B-6 2019- Yes 100mg Take 100 [facility] (VITAMIN 0-23 mg by ity of B-6) 100 mg 17:03: mouth [place] tablet 43 daily. Medical Branch CALCIUM 2019- Yes Take by [facility] CARBONATE/V 0-23 mouth. ity of ITAMIN D3 17:03: [place] (VITAMIN 43 Medical D-3 ORAL) Branch alcaftadine 2019- Yes Place in [place] (LASTACAFT) 0-23 each eye. ity of 0.25 % Drop 17:03: [place] [address] [facility] CYCLOSPORIN 2019- Yes Place in [place] [facility] (RESTASIS 0-23 each eye. ity of OPHTHALMIC) 17:03: [place] [address] [facility] DOCOSAHEXAN 2019-09 Yes Take by [facility] vers OIC 0-23 mouth. ity of ACID/EPA 17:03: [place] (FISH OIL 43 Medical ORAL) Branch vitamin E 2019-09 Yes 1000U Take 1,000 [facility] 1,000 unit 0-23 Units by ity o f capsule 17:03: mouth [place] 43 daily. Medical Branch Magnesium 2020- Yes Take by [facility] 250 mg Tab 0-23 mouth. ity of 17:03: [place] [address] [facility] vitamin B-6 2019-09 Yes 100mg Take 100 [facility] (VITAMIN 0-23 mg by ity of B-6) 100 mg 17:03: mouth [place] tablet 43 daily. [facility] Branch CALCIUM 2019- Yes Take by [facility] CARBONATE/V 0-23 mouth. ity of ITAMIN D3 17:03: [place] (VITAMIN 43 Medical D-3 ORAL) Branch alcaftadine 2019- Yes Place in [place] (LASTACAFT) 0-23 each eye. ity of 0.25 % Drop 17:03: [place] [address] [facility] CYCLOSPORIN 2019- Yes Place in [place] [facility] (RESTASIS 0-23 each eye. ity of OPHTHALMIC) 17:03: [place] [address] [facility] DOCOSAHEXAN 2019- Yes Take by [facility] vers OIC 0-23 mouth. ity of ACID/EPA 17:03: [place] (FISH OIL 43 Medical ORAL) Branch vitamin E 2020- Yes 1000U Take 1,000 [facility] 1,000 unit 0-23 Units by ity o f capsule 17:03: mouth [place] 43 daily. Medical Branch Magnesium 2020- Yes Take by [facility] 250 mg Tab 0-23 mouth. ity of 17:03: [place] [address] [facility] vitamin B-6 2019- Yes 100mg Take 100 [facility] (VITAMIN 0-23 mg by ity of B-6) 100 mg 17:03: mouth [place] tablet 43 daily. Medical Branch CALCIUM 2019- Yes Take by [facility] CARBONATE/V 0-23 mouth. ity of ITAMIN D3 17:03: [place] (VITAMIN 43 Medical D-3 ORAL) Branch alcaftadine 2019- Yes Place in [place] (LASTACAFT) 0-23 each eye. ity of 0.25 % Drop 17:03: [place] [address] [facility] CYCLOSPORIN 2019-[address] [facility] [place] [facility] (RESTASIS 0-23 each eye. ity of OPHTHALMIC) 17:03: [place] [address] [facility] DOCOSAHEXAN 2019-09 Yes Take by [facility] vers OIC 0-23 mouth. ity of ACID/EPA 17:03: [place] (FISH OIL 43 Medical ORAL) Branch vitamin E 2019- Yes 1000U Take 1,000 [facility] 1,000 unit 0-23 Units by ity o f capsule 17:03: mouth [place] 43 daily. Medical Branch Magnesium 2019- Yes Take by [facility] 250 mg Tab 0-23 mouth. ity of 17:03: [place] [address] [facility] vitamin B-6 2019-09 Yes 100mg Take 100 [facility] (VITAMIN 0-23 mg by ity of B-6) 100 mg 17:03: mouth [place] tablet 43 daily. Medical Branch CALCIUM 2019- Yes Take by [facility] CARBONATE/V 0-23 mouth. ity of ITAMIN D3 17:03: [place] (VITAMIN 43 Medical D-3 ORAL) Branch alcaftadine 2019-[address] [facility] [place] (LASTACAFT) 0-23 each eye. ity of 0.25 % Drop 17:03: [place] [address] [facility] CYCLOSPORIN 2019- Yes Place in [place] [facility] (RESTASIS 0-23 each eye. ity of OPHTHALMIC) 17:03: [place] [address] [facility] DOCOSAHEXAN 2019- Yes Take by [facility] vers OIC 0-23 mouth. ity of ACID/EPA 17:03: [place] (FISH OIL 43 Medical ORAL) Branch vitamin E 2020-1 Yes 1000U Take 1,000 [facility] 1,000 unit 0-23 Units by ity o f capsule 17:03: mouth [place] 43 daily. Medical Branch Magnesium 2020- Yes Take by [facility] 250 mg Tab 0-23 mouth. ity of 17:03: [place] [address] [facility] vitamin B-6 2019-09 Yes 100mg Take 100 [facility] (VITAMIN 0-23 mg by ity of B-6) 100 mg 17:03: mouth [place] tablet 43 daily. Medical Branch CALCIUM 2019- Yes Take by [facility] CARBONATE/V 0-23 mouth. ity of ITAMIN D3 17:03: [place] (VITAMIN 43 Medical D-3 ORAL) Branch alcaftadine 2019-[address] [facility] [place] (LASTACAFT) 0-23 each eye. ity of 0.25 % Drop 17:03: [place] [address] [facility] CYCLOSPORIN 2019-[address] [facility] [place] [facility] (RESTASIS 0-23 each eye. ity of OPHTHALMIC) 17:03: [place] [address] [facility] DOCOSAHEXAN 2019-09 Yes Take by [facility] vers OIC 0-23 mouth. ity of ACID/EPA 17:03: [place] (FISH OIL 43 Medical ORAL) Branch vitamin E 2019-09 Yes 1000U Take 1,000 [facility] 1,000 unit 0-23 Units by ity o f capsule 17:03: mouth [place] 43 daily. Medical Branch Magnesium 2019- Yes Take by [facility] 250 mg Tab 0-23 mouth. ity of 17:03: [place] [address] [facility] vitamin B-6 2019-09 Yes 100mg Take 100 [facility] (VITAMIN 0-23 mg by ity of B-6) 100 mg 17:03: mouth [place] tablet 43 daily. Medical Branch CALCIUM 2019- Yes Take by [facility] CARBONATE/V 0-23 mouth. ity of ITAMIN D3 17:03: [place] (VITAMIN 43 Medical D-3 ORAL) Branch alcaftadine 2019-[address] [facility] [place] (LASTACAFT) 0-23 each eye. ity of 0.25 % Drop 17:03: [place] [address] [facility] CYCLOSPORIN 2019-[address] [facility] [place] [facility] (RESTASIS 0-23 each eye. ity of OPHTHALMIC) 17:03: [place] [address] [facility] DOCOSAHEXAN 2019-09 Yes Take by [facility] vers OIC 0-23 mouth. ity of ACID/EPA 17:03: [place] (FISH OIL 43 Medical ORAL) Branch vitamin E 2020- Yes 1000U Take 1,000 [facility] 1,000 unit 0-23 Units by ity o f capsule 17:03: mouth [place] 43 daily. Medical Branch Magnesium 2020- Yes Take by [facility] 250 mg Tab 0-23 mouth. ity of 17:03: [place] [address] [facility] vitamin B-6 2019-09 Yes 100mg Take 100 [facility] (VITAMIN 0-23 mg by ity of B-6) 100 mg 17:03: mouth [place] tablet 43 daily. Medical Branch CALCIUM 2019- Yes Take by [facility] CARBONATE/V 0-23 mouth. ity of ITAMIN D3 17:03: [place] (VITAMIN 43 Medical D-3 ORAL) Branch alcaftadine 2019-[address] [facility] [place] (LASTACAFT) 0-23 each eye. ity of 0.25 % Drop 17:03: [place] [address] [facility] CYCLOSPORIN 2019-[address] in [place] [facility] (RESTASIS 0-23 each eye. ity of OPHTHALMIC) 17:03: [place] [address] [facility] DOCOSAHEXAN 2019-09 Yes Take by [facility] OIC 0-23 mouth. ity of ACID/EPA 17:03: [place] (FISH OIL 43 Medical ORAL) Branch vitamin E 2019-09 Yes 1000U Take 1,000 [facility] 1,000 unit 0-23 Units by ity o f capsule 17:03: mouth [place] 43 daily. Medical Branch Magnesium 2019- Yes Take by [facility] 250 mg Tab 0-23 mouth. ity of 17:03: [place] [address] [facility] vitamin B-6 2019- Yes 100mg Take 100 [facility] (VITAMIN 0-23 mg by ity of B-6) 100 mg 17:03: mouth [place] tablet 43 daily. Medical Branch CALCIUM 2019-09 Yes Take by [facility] CARBONATE/V 0-23 mouth. ity of ITAMIN D3 17:03: [place] (VITAMIN 43 Medical D-3 ORAL) Branch alcaftadine 2019-[address] [facility] [place] (LASTACAFT) 0-23 each eye. ity of 0.25 % Drop 17:03: [place] [address] [facility] CYCLOSPORIN 2019- Yes Place in [place] [facility] (RESTASIS 0-23 each eye. ity of OPHTHALMIC) 17:03: [place] [address] [facility] DOCOSAHEXAN 2019-09 Yes Take by [facility] vers OIC 0-23 mouth. ity of ACID/EPA 17:03: [place] (FISH OIL 43 Medical ORAL) Branch vitamin E 2019-09 Yes 1000U Take 1,000 [facility] 1,000 unit 0-23 Units by ity o f capsule 17:03: mouth [place] 43 daily. Medical Branch Magnesium 2019- Yes Take by [facility] 250 mg Tab 0-23 mouth. ity of 17:03: [place] [address] [facility] vitamin B-6 2019-09 Yes 100mg Take 100 [facility] (VITAMIN 0-23 mg by ity of B-6) 100 mg 17:03: mouth [place] tablet 43 daily. Medical Branch CALCIUM 2019-09 Yes Take by [facility] CARBONATE/V 0-23 mouth. ity of ITAMIN D3 17:03: [place] (VITAMIN 43 Medical D-3 ORAL) Branch alcaftadine 2019-[address] in [place] (LASTACAFT) 0-23 each eye. ity of 0.25 % Drop 17:03: [place] [address] [facility] CYCLOSPORIN 2019-[address] in [place] [facility] (RESTASIS 0-23 each eye. ity of OPHTHALMIC) 17:03: [place] [address] [facility] DOCOSAHEXAN 2019-09 Yes Take by [facility] vers OIC 0-23 mouth. ity of ACID/EPA 17:03: [place] (FISH OIL 43 Medical ORAL) Branch vitamin E 2019-09 Yes 1000U Take 1,000 [facility] 1,000 unit 0-23 Units by ity o f capsule 17:03: mouth [place] 43 daily. Medical Branch Magnesium 2019-09 Yes Take by [facility] 250 mg Tab 0-23 mouth. ity of 17:03: [place] [address] [facility] vitamin B-6 2019-09 Yes 100mg Take 100 [facility] (VITAMIN 0-23 mg by ity of B-6) 100 mg 17:03: mouth [place] tablet 43 daily. Medical Branch CALCIUM 2019-09 Yes Take by [facility] CARBONATE/V 0-23 mouth. ity of ITAMIN D3 17:03: [place] (VITAMIN 43 Medical D-3 ORAL) Branch alcaftadine 2019-[address] in [place] (LASTACAFT) 0-23 each eye. ity of 0.25 % Drop 17:03: [place] [address] [facility] CYCLOSPORIN 2019-[address] in [place] [facility] (RESTASIS 0-23 each eye. ity of OPHTHALMIC) 17:03: [place] [address] [facility] DOCOSAHEXAN 2020- Yes Take by [facility] vers OIC 0-23 mouth. ity of ACID/EPA 17:03: [place] (FISH OIL 43 Medical ORAL) Branch vitamin E 2020- Yes 1000U Take 1,000 [facility] 1,000 unit 0-23 Units by ity o f capsule 17:03: mouth [place] 43 daily. Medical Branch Magnesium 2019- Yes Take by [facility] 250 mg Tab 0-23 mouth. ity of 17:03: [place] [address] [facility] vitamin B-6 2019- Yes 100mg Take 100 [facility] (VITAMIN 0-23 mg by ity of B-6) 100 mg 17:03: mouth [place] tablet 43 daily. Medical Branch CALCIUM 2019- Yes Take by [facility] CARBONATE/V 0-23 mouth. ity of ITAMIN D3 17:03: [place] (VITAMIN 43 Medical D-3 ORAL) Branch alcaftadine 2019-[address] in [place] (LASTACAFT) 0-23 each eye. ity of 0.25 % Drop 17:03: [place] [address] [facility] CYCLOSPORIN 2019-[address] in [place] [facility] (RESTASIS 0-23 each eye. ity of OPHTHALMIC) 17:03: [place] [address] [facility] DOCOSAHEXAN 2019-09 Yes Take by [facility] vers OIC 0-23 mouth. ity of ACID/EPA 17:03: [place] (FISH OIL 43 Medical ORAL) Branch vitamin E 2019-09 Yes 1000U Take 1,000 [facility] 1,000 unit 0-23 Units by ity o f capsule 17:03: mouth [place] 43 daily. Medical Branch Magnesium 2019- Yes Take by [facility] 250 mg Tab 0-23 mouth. ity of 17:03: [place] [address] [facility] vitamin B-6 2019- Yes 100mg Take 100 [facility] (VITAMIN 0-23 mg by ity of B-6) 100 mg 17:03: mouth [place] tablet 43 daily. Medical Branch CALCIUM 2019- Yes Take by [facility] CARBONATE/V 0-23 mouth. ity of ITAMIN D3 17:03: [place] (VITAMIN 43 Medical D-3 ORAL) Branch alcaftadine 2019-[address] in [place] (LASTACAFT) 0-23 each eye. ity of 0.25 % Drop 17:03: [place] [address] [facility] CYCLOSPORIN 2020- Yes Place in [place] [facility] (RESTASIS 0-23 each eye. ity of OPHTHALMIC) 17:03: [place] [address] [facility] DOCOSAHEXAN 2019- Yes Take by [facility] vers OIC 0-23 mouth. ity of ACID/EPA 17:03: [place] (FISH OIL 43 Medical ORAL) Branch vitamin E 2019- Yes 1000U Take 1,000 [facility] 1,000 unit 0-23 Units by ity o f capsule 17:03: mouth [place] 43 daily. Medical Branch Magnesium 2019- Yes Take by [facility] 250 mg Tab 0-23 mouth. ity of 17:03: [place] [address] [facility] vitamin B-6 2019- Yes 100mg Take 100 [facility] (VITAMIN 0-23 mg by ity of B-6) 100 mg 17:03: mouth [place] tablet 43 daily. Medical Branch CALCIUM 2019- Yes Take by [facility] CARBONATE/V 0-23 mouth. ity of ITAMIN D3 17:03: [place] (VITAMIN 43 Medical D-3 ORAL) Branch alcaftadine 2019-[address] in [place] (LASTACAFT) 0-23 each eye. ity of 0.25 % Drop 17:03: [place] [address] [facility] CYCLOSPORIN 2019- Yes Place in [place] [facility] (RESTASIS 0-23 each eye. ity of OPHTHALMIC) 17:03: [place] [address] [facility] DOCOSAHEXAN 2019- Yes Take by [facility] OIC 0-23 mouth. ity of ACID/EPA 17:03: [place] (FISH OIL 43 Medical ORAL) Branch vitamin E 2019- Yes 1000U Take 1,000 [facility] 1,000 unit 0-23 Units by ity o f capsule 17:03: mouth [place] 43 daily. Medical Branch Magnesium 2020- Yes Take by [facility] 250 mg Tab 0-23 mouth. ity of 17:03: [place] [address] [facility] vitamin B-6 2019- Yes 100mg Take 100 [facility] (VITAMIN 0-23 mg by ity of B-6) 100 mg 17:03: mouth [place] tablet 43 daily. Medical Branch CALCIUM 2019- Yes Take by [facility] CARBONATE/V 0-23 mouth. ity of ITAMIN D3 17:03: [place] (VITAMIN 43 Medical D-3 ORAL) Branch alcaftadine 2019- Yes Place in [place] (LASTACAFT) 0-23 each eye. ity of 0.25 % Drop 17:03: [place] [address] [facility] CYCLOSPORIN 2020- Yes Place in [place] [facility] (RESTASIS 0-23 each eye. ity of OPHTHALMIC) 17:03: [place] [address] [facility] Branch DOCOSAHEXAN 2019- Yes Take by [facility] vers OIC 0-23 mouth. ity of ACID/EPA 17:03: [place] (FISH OIL 43 Medical ORAL) Branch vitamin E 2019- Yes 1000U Take 1,000 [facility] 1,000 unit 0-23 Units by ity o f capsule 17:03: mouth [place] 43 daily. Medical Branch Magnesium 2019- Yes Take by [facility] 250 mg Tab 0-23 mouth. ity of 17:03: [place] [address] [facility] vitamin B-6 2019-09 Yes 100mg Take 100 [facility] (VITAMIN 0-23 mg by ity of B-6) 100 mg 17:03: mouth [place] tablet 43 daily. Medical Branch CALCIUM 2019- Yes Take by [facility] CARBONATE/V 0-23 mouth. ity of ITAMIN D3 17:03: [place] (VITAMIN 43 Medical D-3 ORAL) Branch alcaftadine 2019-[address] in [place] (LASTACAFT) 0-23 each eye. ity of 0.25 % Drop 17:03: [place] [address] [facility] CYCLOSPORIN 2019- Yes Place in [place] [facility] (RESTASIS 0-23 each eye. ity of OPHTHALMIC) 17:03: [place] [address] [facility] Branch DOCOSAHEXAN 2019- Yes Take by [facility] vers OIC 0-23 mouth. ity of ACID/EPA 17:03: [place] (FISH OIL 43 Medical ORAL) Branch vitamin E 2019- Yes 1000U Take 1,000 [facility] 1,000 unit 0-23 Units by ity o f capsule 17:03: mouth [place] 43 daily. Medical Branch Magnesium 2020- Yes Take by [facility] 250 mg Tab 0-23 mouth. ity of 17:03: [place] [address] [facility] vitamin B-6 2019- Yes 100mg Take 100 [facility] (VITAMIN 0-23 mg by ity of B-6) 100 mg 17:03: mouth [place] tablet 43 daily. Medical Branch CALCIUM 2019- Yes Take by [facility] CARBONATE/V 0-23 mouth. ity of ITAMIN D3 17:03: [place] (VITAMIN 43 Medical D-3 ORAL) Branch alcaftadine Yes Place in [place] (LASTACAFT) 0-23 each eye. ity of 0.25 % Drop 17:03: [place] [address] [facility] CYCLOSPORIN 2020- Yes Place in [place] [facility] (RESTASIS 0-23 each eye. ity of OPHTHALMIC) 17:03: [place] [address] [facility] DOCOSAHEXAN 2019- Yes Take by [facility] vers OIC 0-23 mouth. ity of ACID/EPA 17:03: [place] (FISH OIL 43 Medical ORAL) Branch vitamin E 2019- Yes 1000U Take 1,000 [facility] 1,000 unit 0-23 Units by ity o f capsule 17:03: mouth [place] 43 daily. Medical Branch Magnesium 2019- Yes Take by [facility] 250 mg Tab 0-23 mouth. ity of 17:03: [place] [address] [facility] vitamin B-6 2019- Yes 100mg Take 100 [facility] (VITAMIN 0-23 mg by ity of B-6) 100 mg 17:03: mouth [place] tablet 43 daily. Medical Branch CALCIUM 2019- Yes Take by [facility] CARBONATE/V 0-23 mouth. ity of ITAMIN D3 17:03: [place] (VITAMIN 43 Medical D-3 ORAL) Branch alcaftadine 2019- Yes Place in [place] (LASTACAFT) 0-23 each eye. ity of 0.25 % Drop 17:03: [place] [address] [facility] CYCLOSPORIN 2019- Yes Place in [place] [facility] (RESTASIS 0-23 each eye. ity of OPHTHALMIC) 17:03: [place] [address] [facility] DOCOSAHEXAN 2019- Yes Take by [facility] vers OIC 0-23 mouth. ity of ACID/EPA 17:03: [place] (FISH OIL 43 Medical ORAL) Branch vitamin E 2019- Yes 1000U Take 1,000 [facility] 1,000 unit 0-23 Units by ity o f capsule 17:03: mouth [place] 43 daily. Medical Branch Magnesium 2020- Yes Take by [facility] 250 mg Tab 0-23 mouth. ity of 17:03: [place] [address] [facility] vitamin B-6 2019- Yes 100mg Take 100 [facility] (VITAMIN 0-23 mg by ity of B-6) 100 mg 17:03: mouth [place] tablet 43 daily. Medical Branch CALCIUM 2020- Yes Take by [facility] CARBONATE/V 0-23 mouth. ity of ITAMIN D3 17:03: [place] (VITAMIN 43 Medical D-3 ORAL) Branch alcaftadine 2020- Yes Place in [place] (LASTACAFT) 0-23 each eye. ity of 0.25 % Drop 17:03: [place] [address] [facility] CYCLOSPORIN 2020- Yes Place in [place] [facility] (RESTASIS 0-23 each eye. ity of OPHTHALMIC) 17:03: [place] [address] [facility] DOCOSAHEXAN 2020- Yes Take by [facility] vers OIC 0-23 mouth. ity of ACID/EPA 17:03: [place] (FISH OIL 43 Medical ORAL) Branch vitamin E 2020- Yes 1000U Take 1,000 [facility] 1,000 unit 0-23 Units by ity o f capsule 17:03: mouth [place] 43 daily. Medical Branch Magnesium 2020- Yes Take by [facility] 250 mg Tab 0-23 mouth. ity of 17:03: [place] [address] [facility] vitamin B-6 2019- Yes 100mg Take 100 [facility] (VITAMIN 0-23 mg by ity of B-6) 100 mg 17:03: mouth [place] tablet 43 daily. Medical Branch CALCIUM 2019- Yes Take by [facility] CARBONATE/V 0-23 mouth. ity of ITAMIN D3 17:03: [place] (VITAMIN 43 Medical D-3 ORAL) Branch alcaftadine 2020- Yes Place in [place] (LASTACAFT) 0-23 each eye. ity of 0.25 % Drop 17:03: [place] [address] [facility] CYCLOSPORIN 2019- Yes Place in [place] [facility] (RESTASIS 0-23 each eye. ity of OPHTHALMIC) 17:03: [place] [address] [facility] DOCOSAHEXAN 2020- Yes Take by [facility] vers OIC 0-23 mouth. ity of ACID/EPA 17:03: [place] (FISH OIL 43 Medical ORAL) Branch vitamin E 2020- Yes 1000U Take 1,000 [facility] 1,000 unit 0-23 Units by ity o f capsule 17:03: mouth [place] 43 daily. Medical Branch Magnesium 2020-1 Yes Take by [facility] 250 mg Tab 0-23 mouth. ity of 17:03: [place] [address] [facility] vitamin B-6 2020- Yes 100mg Take 100 [facility] (VITAMIN 0-23 mg by ity of B-6) 100 mg 17:03: mouth [place] tablet 43 daily. Medical Branch CALCIUM 2020- Yes Take by [facility] CARBONATE/V 0-23 mouth. ity of ITAMIN D3 17:03: [place] (VITAMIN 43 Medical D-3 ORAL) Branch alcaftadine 2019- Yes Place in [place] (LASTACAFT) 0-23 each eye. ity of 0.25 % Drop 17:03: [place] [address] [facility] CYCLOSPORIN 2019- Yes Place in [place] [facility] (RESTASIS 0-23 each eye. ity of OPHTHALMIC) 17:03: [place] [address] [facility] Branch DOCOSAHEXAN 2019- Yes Take by [facility] vers OIC 0-23 mouth. ity of ACID/EPA 17:03: [place] (FISH OIL 43 Medical ORAL) Branch vitamin E 2019-09 Yes 1000U Take 1,000 [facility] 1,000 unit 0-23 Units by ity o f capsule 17:03: mouth [place] 43 daily. Medical Branch Magnesium 2019- Yes Take by [facility] 250 mg Tab 0-23 mouth. ity of 17:03: [place] [address] [facility] vitamin B-6 2019-09 Yes 100mg Take 100 [facility] (VITAMIN 0-23 mg by ity of B-6) 100 mg 17:03: mouth [place] tablet 43 daily. Medical Branch CALCIUM 2019- Yes Take by [facility] CARBONATE/V 0-23 mouth. ity of ITAMIN D3 17:03: [place] (VITAMIN 43 Medical D-3 ORAL) Branch alcaftadine 2019-[address] in [place] (LASTACAFT) 0-23 each eye. ity of 0.25 % Drop 17:03: [place] [address] [facility] CYCLOSPORIN 2019- Yes Place in [place] [facility] (RESTASIS 0-23 each eye. ity of OPHTHALMIC) 17:03: [place] [address] [facility] DOCOSAHEXAN 2019- Yes Take by [facility] vers OIC 0-23 mouth. ity of ACID/EPA 17:03: [place] (FISH OIL 43 Medical ORAL) Branch vitamin E 2019- Yes 1000U Take 1,000 [facility] 1,000 unit 0-23 Units by ity o f capsule 17:03: mouth [place] 43 daily. Medical Branch Magnesium 2020- Yes Take by [facility] 250 mg Tab 0-23 mouth. ity of 17:03: [place] [address] [facility] vitamin B-6 2019- Yes 100mg Take 100 [facility] (VITAMIN 0-23 mg by ity of B-6) 100 mg 17:03: mouth [place] tablet 43 daily. Medical Branch CALCIUM 2019- Yes Take by [facility] CARBONATE/V 0-23 mouth. ity of ITAMIN D3 17:03: [place] (VITAMIN 43 Medical D-3 ORAL) Branch alcaftadine 2019- Yes Place in [place] (LASTACAFT) 0-23 each eye. ity of 0.25 % Drop 17:03: [place] [address] [facility] CYCLOSPORIN 2019- Yes Place in [place] [facility] (RESTASIS 0-23 each eye. ity of OPHTHALMIC) 17:03: [place] [address] [facility] DOCOSAHEXAN 2019- Yes Take by [facility] vers OIC 0-23 mouth. ity of ACID/EPA 17:03: [place] (FISH OIL 43 Medical ORAL) Branch vitamin E 2019-09 Yes 1000U Take 1,000 [facility] 1,000 unit 0-23 Units by ity o f capsule 17:03: mouth [place] 43 daily. Medical Branch Magnesium 2019- Yes Take by [facility] 250 mg Tab 0-23 mouth. ity of 17:03: [place] [address] [facility] vitamin B-6 2019-09 Yes 100mg Take 100 [facility] (VITAMIN 0-23 mg by ity of B-6) 100 mg 17:03: mouth [place] tablet 43 daily. Medical Branch CALCIUM 2019- Yes Take by [facility] CARBONATE/V 0-23 mouth. ity of ITAMIN D3 17:03: [place] (VITAMIN 43 Medical D-3 ORAL) Branch alcaftadine 2019-[address] [facility] [place] (LASTACAFT) 0-23 each eye. ity of 0.25 % Drop 17:03: [place] [address] [facility] CYCLOSPORIN 2019- Yes Place in [place] [facility] (RESTASIS 0-23 each eye. ity of OPHTHALMIC) 17:03: [place] [address] [facility] DOCOSAHEXAN 2019- Yes Take by [facility] vers OIC 0-23 mouth. ity of ACID/EPA 17:03: [place] (FISH OIL 43 Medical ORAL) Branch vitamin E 2019- Yes 1000U Take 1,000 [facility] 1,000 unit 0-23 Units by ity o f capsule 17:03: mouth [place] 43 daily. Medical Branch Magnesium 2020- Yes Take by [facility] 250 mg Tab 0-23 mouth. ity of 17:03: [place] [address] [facility] vitamin B-6 2019- Yes 100mg Take 100 [facility] (VITAMIN 0-23 mg by ity of B-6) 100 mg 17:03: mouth [place] tablet 43 daily. Medical Branch CALCIUM 2019- Yes Take by [facility] CARBONATE/V 0-23 mouth. ity of ITAMIN D3 17:03: [place] (VITAMIN 43 Medical D-3 ORAL) Branch alcaftadine 2020- Yes Place in [place] (LASTACAFT) 0-23 each eye. ity of 0.25 % Drop 17:03: [place] [address] [facility] CYCLOSPORIN 2019- Yes Place in [place] [facility] (RESTASIS 0-23 each eye. ity of OPHTHALMIC) 17:03: [place] [address] [facility] Branch DOCOSAHEXAN 2019- Yes Take by [facility] vers OIC 0-23 mouth. ity of ACID/EPA 17:03: [place] (FISH OIL 43 Medical ORAL) Branch vitamin E 2019- Yes 1000U Take 1,000 U [facility] 1,000 unit 0-23 Units by ity o f capsule 17:03: mouth [place] 43 daily. Medical Branch Magnesium 2020- Yes Take by [facility] 250 mg Tab 0-23 mouth. ity of 17:03: [place] [address] [facility] vitamin B-6 2019- Yes 100mg Take 100 [facility] (VITAMIN 0-23 mg by ity of B-6) 100 mg 17:03: mouth [place] tablet 43 daily. Medical Branch CALCIUM 2019- Yes Take by [facility] CARBONATE/V 0-23 mouth. ity of ITAMIN D3 17:03: [place] (VITAMIN 43 Medical D-3 ORAL) Branch alcaftadine 2019-[address] [facility] [place] (LASTACAFT) 0-23 each eye. ity of 0.25 % Drop 17:03: [place] [address] [facility] CYCLOSPORIN 2019- Yes Place in [place] [facility] (RESTASIS 0-23 each eye. ity of OPHTHALMIC) 17:03: [place] [address] [facility] Branch DOCOSAHEXAN 2019- Yes Take by [facility] vers OIC 0-23 mouth. ity of ACID/EPA 17:03: [place] (FISH OIL 43 Medical ORAL) Branch vitamin E 2020- Yes 1000U Take 1,000 [facility] 1,000 unit 0-23 Units by ity o f capsule 17:03: mouth [place] 43 daily. Medical Branch Magnesium 2020-1 Yes Take by [facility] 250 mg Tab 0-23 mouth. ity of 17:03: [place] [address] [facility] vitamin B-6 2019- Yes 100mg Take 100 [facility] (VITAMIN 0-23 mg by ity of B-6) 100 mg 17:03: mouth [place] tablet 43 daily. Medical Branch CALCIUM 2019- Yes Take by [facility] CARBONATE/V 0-23 mouth. ity of ITAMIN D3 17:03: [place] (VITAMIN 43 Medical D-3 ORAL) Branch alcaftadine 2019- Yes Place in [place] (LASTACAFT) 0-23 each eye. ity of 0.25 % Drop 17:03: [place] [address] [facility] CYCLOSPORIN 2019- Yes Place in [place] [facility] (RESTASIS 0-23 each eye. ity of OPHTHALMIC) 17:03: [place] [address] [facility] Branch DOCOSAHEXAN 2019-09 Yes Take by [facility] vers OIC 0-23 mouth. ity of ACID/EPA 17:03: [place] (FISH OIL 43 Medical ORAL) Branch vitamin E 2019-09 Yes 1000U Take 1,000 U [facility] 1,000 unit 0-23 Units by ity o f capsule 17:03: mouth [place] 43 daily. Medical Branch Magnesium 2020- Yes Take by [facility] 250 mg Tab 0-23 mouth. ity of 17:03: [place] [address] [facility] vitamin B-6 2019-09 Yes 100mg Take 100 [facility] (VITAMIN 0-23 mg by ity of B-6) 100 mg 17:03: mouth [place] tablet 43 daily. [facility] CALCIUM 2019- Yes Take by [facility] CARBONATE/V 0-23 mouth. ity of ITAMIN D3 17:03: [place] (VITAMIN 43 Medical D-3 ORAL) Branch alcaftadine 2019- Yes Place in [facility] [place] (LASTACAFT) 0-23 each eye. ity of 0.25 % Drop 17:03: [place] [address] [facility] CYCLOSPORIN 2019- Yes Place in [facility] [place] [facility] (RESTASIS 0-23 each eye. ity of OPHTHALMIC) 17:03: [place] [address] [facility] DOCOSAHEXAN 2019- Yes Take by [facility] vers OIC 0-23 mouth. ity of ACID/EPA 17:03: [place] (FISH OIL 43 Medical ORAL) Branch vitamin E 2020- Yes 1000U Take 1,000 [facility] 1,000 unit 0-23 Units by ity o f capsule 17:03: mouth [place] 43 daily. [facility] Magnesium 2020- Yes Take by [facility] 250 mg Tab 0-23 mouth. ity of 17:03: [place] [address] [facility] vitamin B-6 2019- Yes 100mg Take 100 [facility] (VITAMIN 0-23 mg by ity of B-6) 100 mg 17:03: mouth [place] tablet 43 daily. [facility] CALCIUM 2019- Yes Take by [facility] CARBONATE/V 0-23 mouth. ity of ITAMIN D3 17:03: [place] (VITAMIN 43 Medical D-3 ORAL) Branch alcaftadine 2019- Yes Place in [place] (LASTACAFT) 0-23 each eye. ity of 0.25 % Drop 17:03: [place] [address] [facility] CYCLOSPORIN 2019-[address] [facility] [place] (RESTASIS 0-23 each eye. ity of OPHTHALMIC) 17:03: [place] [address] [facility] DOCOSAHEXAN 2019-09 Yes Take by [facility] vers OIC 0-23 mouth. ity of ACID/EPA 17:03: [place] (FISH OIL 43 Medical ORAL) Branch vitamin E 2019- Yes 1000U Take 1,000 [facility] 1,000 unit 0-23 Units by ity o f capsule 17:03: mouth [place] 43 daily. [facility] Magnesium 2019- Yes Take by [facility] 250 mg Tab 0-23 mouth. ity of 17:03: [place] [address] [facility] vitamin B-6 2019-09 Yes 100mg Take 100 [facility] (VITAMIN 0-23 mg by ity of B-6) 100 mg 17:03: mouth [place] tablet 43 daily. [facility] CALCIUM 2019- Yes Take by [facility] CARBONATE/V 0-23 mouth. ity of ITAMIN D3 17:03: [place] (VITAMIN 43 Medical D-3 ORAL) Branch alcaftadine 2019-[address] [facility] [place] (LASTACAFT) 0-23 each eye. ity of 0.25 % Drop 17:03: [place] [address] [facility] CYCLOSPORIN 2019- Yes Place in [place] [facility] (RESTASIS 0-23 each eye. ity of OPHTHALMIC) 17:03: [place] [address] [facility] DOCOSAHEXAN 2019- Yes Take by [facility] OIC 0-23 mouth. ity of ACID/EPA 17:03: [place] (FISH OIL 43 Medical ORAL) Branch vitamin E 2020-1 Yes 1000U Take 1,000 [facility] 1,000 unit 0-23 Units by ity o f capsule 17:03: mouth [place] 43 daily. [facility] Magnesium 2020- Yes Take by [facility] 250 mg Tab 0-23 mouth. ity of 17:03: [place] [address] [facility] vitamin B-6 2019-09 Yes 100mg Take 100 [facility] (VITAMIN 0-23 mg by ity of B-6) 100 mg 17:03: mouth [place] tablet 43 daily. [facility] CALCIUM 2019- Yes Take by [facility] CARBONATE/V 0-23 mouth. ity of ITAMIN D3 17:03: [place] (VITAMIN 43 Medical D-3 ORAL) Branch alcaftadine 2019-[address] [facility] [place] (LASTACAFT) 0-23 each eye. ity of 0.25 % Drop 17:03: [place] [address] [facility] CYCLOSPORIN 2019-[address] [facility] [place] [facility] (RESTASIS 0-23 each eye. ity of OPHTHALMIC) 17:03: [place] [address] [facility] DOCOSAHEXAN 2019-09 Yes Take by [facility] OIC 0-23 mouth. ity of ACID/EPA 17:03: [place] (FISH OIL 43 Medical ORAL) Branch vitamin E 2019-09 Yes 1000U Take 1,000 [facility] 1,000 unit 0-23 Units by ity o f capsule 17:03: mouth [place] 43 daily. [facility] Magnesium 2019- Yes Take by [facility] 250 mg Tab 0-23 mouth. ity of 17:03: [place] [address] [facility] vitamin B-6 2019-09 Yes 100mg Take 100 [facility] (VITAMIN 0-23 mg by ity of B-6) 100 mg 17:03: mouth [place] tablet 43 daily. [facility] CALCIUM 2019- Yes Take by [facility] CARBONATE/V 0-23 mouth. ity of ITAMIN D3 17:03: [place] (VITAMIN 43 Medical D-3 ORAL) Branch alcaftadine 2019-[address] [facility] [place] (LASTACAFT) 0-23 each eye. ity of 0.25 % Drop 17:03: [place] [address] [facility] CYCLOSPORIN 2019-[address] [facility] [place] (RESTASIS 0-23 each eye. ity of OPHTHALMIC) 17:03: [place] [address] [facility] DOCOSAHEXAN 2019-09 Yes Take by [facility] OIC 0-23 mouth. ity of ACID/EPA 17:03: [place] (FISH OIL 43 Medical ORAL) Branch vitamin E 2020- Yes 1000U Take 1,000 [facility] 1,000 unit 0-23 Units by ity o f capsule 17:03: mouth [place] 43 daily. [facility] Magnesium 2020- Yes Take by [facility] 250 mg Tab 0-23 mouth. ity of 17:03: [place] [address] [facility] vitamin B-6 2019-09 Yes 100mg Take 100 [facility] (VITAMIN 0-23 mg by ity of B-6) 100 mg 17:03: mouth [place] tablet 43 daily. [facility] CALCIUM 2019- Yes Take by [facility] CARBONATE/V 0-23 mouth. ity of ITAMIN D3 17:03: [place] (VITAMIN 43 Medical D-3 ORAL) Branch alcaftadine 2019-[address] [facility] [place] (LASTACAFT) 0-23 each eye. ity of 0.25 % Drop 17:03: [place] [address] [facility] CYCLOSPORIN 2019-[address] [facility] [place] [facility] (RESTASIS 0-23 each eye. ity of OPHTHALMIC) 17:03: [place] [address] [facility] DOCOSAHEXAN 2019-09 Yes Take by [facility] OIC 0-23 mouth. ity of ACID/EPA 17:03: [place] (FISH OIL 43 Medical ORAL) Branch vitamin E 2019-09 Yes 1000U Take 1,000 [facility] 1,000 unit 0-23 Units by ity o f capsule 17:03: mouth [place] 43 daily. [facility] Magnesium 2019- Yes Take by [facility] 250 mg Tab 0-23 mouth. ity of 17:03: [place] [address] [facility] vitamin B-6 2019- Yes 100mg Take 100 [facility] (VITAMIN 0-23 mg by ity of B-6) 100 mg 17:03: mouth [place] tablet 43 daily. [facility] CALCIUM 2019-09 Yes Take by [facility] CARBONATE/V 0-23 mouth. ity of ITAMIN D3 17:03: [place] (VITAMIN 43 Medical D-3 ORAL) Branch alcaftadine 2019-[address] [facility] [place] (LASTACAFT) 0-23 each eye. ity of 0.25 % Drop 17:03: [place] [address] [facility] CYCLOSPORIN 2019- Yes Place in [place] (RESTASIS 0-23 each eye. ity of OPHTHALMIC) 17:03: [place] [address] [facility] DOCOSAHEXAN 2019-09 Yes Take by [facility] OIC 0-23 mouth. ity of ACID/EPA 17:03: [place] (FISH OIL 43 Medical ORAL) Branch vitamin E 2019-09 Yes 1000U Take 1,000 [facility] 1,000 unit 0-23 Units by ity o f capsule 17:03: mouth [place] 43 daily. [facility] Magnesium 2019- Yes Take by [facility] 250 mg Tab 0-23 mouth. ity of 17:03: [place] [address] [facility] vitamin B-6 2019-09 Yes 100mg Take 100 [facility] (VITAMIN 0-23 mg by ity of B-6) 100 mg 17:03: mouth [place] tablet 43 daily. [facility] CALCIUM 2019-09 Yes Take by [facility] CARBONATE/V 0-23 mouth. ity of ITAMIN D3 17:03: [place] (VITAMIN 43 Medical D-3 ORAL) Branch alcaftadine 2019-[address] [facility] [place] (LASTACAFT) 0-23 each eye. ity of 0.25 % Drop 17:03: [place] [address] [facility] CYCLOSPORIN 2019-[address] [facility] [place] [facility] (RESTASIS 0-23 each eye. ity of OPHTHALMIC) 17:03: [place] [address] [facility] DOCOSAHEXAN 2019-09 Yes Take by [facility] OIC 0-23 mouth. ity of ACID/EPA 17:03: [place] (FISH OIL 43 Medical ORAL) Branch vitamin E 2019-09 Yes 1000U Take 1,000 [facility] 1,000 unit 0-23 Units by ity o f capsule 17:03: mouth [place] 43 daily. [facility] Branch Magnesium 2019-09 Yes Take by [facility] 250 mg Tab 0-23 mouth. ity of 17:03: [place] [address] [facility] vitamin B-6 2019-09 Yes 100mg Take 100 [facility] (VITAMIN 0-23 mg by ity of B-6) 100 mg 17:03: mouth [place] tablet 43 daily. [facility] CALCIUM 2019-09 Yes Take by [facility] CARBONATE/V 0-23 mouth. ity of ITAMIN D3 17:03: [place] (VITAMIN 43 Medical D-3 ORAL) Branch alcaftadine 2019-[address] [facility] [place] (LASTACAFT) 0-23 each eye. ity of 0.25 % Drop 17:03: [place] [address] [facility] CYCLOSPORIN 2019-[address] in [place] (RESTASIS 0-23 each eye. ity of OPHTHALMIC) 17:03: [place] [address] [facility] DOCOSAHEXAN 2020- Yes Take by [facility] OIC 0-23 mouth. ity of ACID/EPA 17:03: [place] (FISH OIL 43 Medical ORAL) Branch vitamin E 2020- Yes 1000U Take 1,000 [facility] 1,000 unit 0-23 Units by ity o f capsule 17:03: mouth [place] 43 daily. [facility] Magnesium 2019- Yes Take by [facility] 250 mg Tab 0-23 mouth. ity of 17:03: [place] [address] [facility] vitamin B-6 2019- Yes 100mg Take 100 [facility] (VITAMIN 0-23 mg by ity of B-6) 100 mg 17:03: mouth [place] tablet 43 daily. [facility] CALCIUM 2019- Yes Take by [facility] CARBONATE/V 0-23 mouth. ity of ITAMIN D3 17:03: [place] (VITAMIN 43 Medical D-3 ORAL) Branch alcaftadine 2019-[address] in [place] (LASTACAFT) 0-23 each eye. ity of 0.25 % Drop 17:03: [place] [address] [facility] CYCLOSPORIN 2019-[address] in [place] [facility] (RESTASIS 0-23 each eye. ity of OPHTHALMIC) 17:03: [place] [address] [facility] DOCOSAHEXAN 2019-09 Yes Take by [facility] vers OIC 0-23 mouth. ity of ACID/EPA 17:03: [place] (FISH OIL 43 Medical ORAL) Branch vitamin E 2019-09 Yes 1000U Take 1,000 [facility] 1,000 unit 0-23 Units by ity o f capsule 17:03: mouth [place] 43 daily. [facility] Branch Magnesium 2019- Yes Take by [facility] 250 mg Tab 0-23 mouth. ity of 17:03: [place] [address] [facility] vitamin B-6 2019- Yes 100mg Take 100 [facility] (VITAMIN 0-23 mg by ity of B-6) 100 mg 17:03: mouth [place] tablet 43 daily. [facility] Branch CALCIUM 2019- Yes Take by [facility] CARBONATE/V 0-23 mouth. ity of ITAMIN D3 17:03: [place] (VITAMIN 43 Medical D-3 ORAL) Branch alcaftadine 2019-[address] [facility] [place] (LASTACAFT) 0-23 each eye. ity of 0.25 % Drop 17:03: [place] [address] [facility] CYCLOSPORIN 2020- Yes Place in [place] [facility] (RESTASIS 0-23 each eye. ity of OPHTHALMIC) 17:03: [place] [address] [facility] DOCOSAHEXAN 2019- Yes Take by [facility] vers OIC 0-23 mouth. ity of ACID/EPA 17:03: [place] (FISH OIL 43 Medical ORAL) Branch vitamin E 2019- Yes 1000U Take 1,000 [facility] 1,000 unit 0-23 Units by ity o f capsule 17:03: mouth [place] 43 daily. [facility] Branch Magnesium 2019- Yes Take by [facility] 250 mg Tab 0-23 mouth. ity of 17:03: [place] [address] [facility] vitamin B-6 2019- Yes 100mg Take 100 [facility] (VITAMIN 0-23 mg by ity of B-6) 100 mg 17:03: mouth [place] tablet 43 daily. [facility] Branch CALCIUM 2019- Yes Take by [facility] CARBONATE/V 0-23 mouth. ity of ITAMIN D3 17:03: [place] (VITAMIN 43 Medical D-3 ORAL) Branch alcaftadine 2019-[address] in [place] (LASTACAFT) 0-23 each eye. ity of 0.25 % Drop 17:03: [place] [address] [facility] CYCLOSPORIN 2019- Yes Place in [place] [facility] (RESTASIS 0-23 each eye. ity of OPHTHALMIC) 17:03: [place] [address] [facility] DOCOSAHEXAN 2019- Yes Take by [facility] vers OIC 0-23 mouth. ity of ACID/EPA 17:03: [place] (FISH OIL 43 Medical ORAL) Branch vitamin E 2019- Yes 1000U Take 1,000 [facility] 1,000 unit 0-23 Units by ity o f capsule 17:03: mouth [place] 43 daily. [facility] Branch Magnesium 2020- Yes Take by [facility] 250 mg Tab 0-23 mouth. ity of 17:03: [place] [address] [facility] vitamin B-6 2019- Yes 100mg Take 100 [facility] (VITAMIN 0-23 mg by ity of B-6) 100 mg 17:03: mouth [place] tablet 43 daily. [facility] Branch CALCIUM 2019- Yes Take by [facility] CARBONATE/V 0-23 mouth. ity of ITAMIN D3 17:03: [place] (VITAMIN 43 Medical D-3 ORAL) Branch alcaftadine 2019- Yes Place in [place] (LASTACAFT) 0-23 each eye. ity of 0.25 % Drop 17:03: [place] [address] [facility] CYCLOSPORIN 2020- Yes Place in [place] [facility] (RESTASIS 0-23 each eye. ity of OPHTHALMIC) 17:03: [place] [address] [facility] DOCOSAHEXAN 2019- Yes Take by [facility] OIC 0-23 mouth. ity of ACID/EPA 17:03: [place] (FISH OIL 43 Medical ORAL) Branch vitamin E 2019- Yes 1000U Take 1,000 [facility] 1,000 unit 0-23 Units by ity o f capsule 17:03: mouth [place] 43 daily. [facility] Branch Magnesium 2019- Yes Take by [facility] 250 mg Tab 0-23 mouth. ity of 17:03: [place] [address] [facility] vitamin B-6 2019-09 Yes 100mg Take 100 [facility] (VITAMIN 0-23 mg by ity of B-6) 100 mg 17:03: mouth [place] tablet 43 daily. [facility] Branch CALCIUM 2019- Yes Take by [facility] CARBONATE/V 0-23 mouth. ity of ITAMIN D3 17:03: [place] (VITAMIN 43 Medical D-3 ORAL) Branch alcaftadine 2019-[address] in [place] (LASTACAFT) 0-23 each eye. ity of 0.25 % Drop 17:03: [place] [address] [facility] CYCLOSPORIN 2019- Yes Place in [place] [facility] (RESTASIS 0-23 each eye. ity of OPHTHALMIC) 17:03: [place] [address] [facility] DOCOSAHEXAN 2019- Yes Take by [facility] OIC 0-23 mouth. ity of ACID/EPA 17:03: [place] (FISH OIL 43 Medical ORAL) Branch vitamin E 2019- Yes 1000U Take 1,000 [facility] 1,000 unit 0-23 Units by ity o f capsule 17:03: mouth [place] 43 daily. [facility] Branch Magnesium 2020- Yes Take by [facility] 250 mg Tab 0-23 mouth. ity of 17:03: [place] [address] [facility] vitamin B-6 2019- Yes 100mg Take 100 [facility] (VITAMIN 0-23 mg by ity of B-6) 100 mg 17:03: mouth [place] tablet 43 daily. [facility] Branch CALCIUM 2019- Yes Take by [facility] CARBONATE/V 0-23 mouth. ity of ITAMIN D3 17:03: [place] (VITAMIN 43 Medical D-3 ORAL) Branch alcaftadine Yes Place in [place] (LASTACAFT) 0-23 each eye. ity of 0.25 % Drop 17:03: [place] [address] [facility] CYCLOSPORIN 2020- Yes Place in [place] (RESTASIS 0-23 each eye. ity of OPHTHALMIC) 17:03: [place] [address] [facility] DOCOSAHEXAN 2019- Yes Take by [facility] OIC 0-23 mouth. ity of ACID/EPA 17:03: [place] (FISH OIL 43 Medical ORAL) Branch vitamin E 2019- Yes 1000U Take 1,000 [facility] 1,000 unit 0-23 Units by ity o f capsule 17:03: mouth [place] 43 daily. [facility] Branch Magnesium 2019- Yes Take by [facility] 250 mg Tab 0-23 mouth. ity of 17:03: [place] [address] [facility] vitamin B-6 2019- Yes 100mg Take 100 [facility] (VITAMIN 0-23 mg by ity of B-6) 100 mg 17:03: mouth [place] tablet 43 daily. [facility] Branch CALCIUM 2019- Yes Take by [facility] CARBONATE/V 0-23 mouth. ity of ITAMIN D3 17:03: [place] (VITAMIN 43 Medical D-3 ORAL) Branch alcaftadine 2019- Yes Place in [place] (LASTACAFT) 0-23 each eye. ity of 0.25 % Drop 17:03: [place] [address] [facility] CYCLOSPORIN 2019- Yes Place in [place] [facility] (RESTASIS 0-23 each eye. ity of OPHTHALMIC) 17:03: [place] [address] [facility] DOCOSAHEXAN 2019- Yes Take by [facility] OIC 0-23 mouth. ity of ACID/EPA 17:03: [place] (FISH OIL 43 Medical ORAL) Branch vitamin E 2019- Yes 1000U Take 1,000 [facility] 1,000 unit 0-23 Units by ity o f capsule 17:03: mouth [place] 43 daily. [facility] Branch Magnesium 2020- Yes Take by [facility] 250 mg Tab 0-23 mouth. ity of 17:03: [place] [address] [facility] vitamin B-6 2019- Yes 100mg Take 100 [facility] (VITAMIN 0-23 mg by ity of B-6) 100 mg 17:03: mouth [place] tablet 43 daily. [facility] Branch CALCIUM 2020- Yes Take by [facility] CARBONATE/V 0-23 mouth. ity of ITAMIN D3 17:03: [place] (VITAMIN 43 Medical D-3 ORAL) Branch alcaftadine 2020- Yes Place in [place] (LASTACAFT) 0-23 each eye. ity of 0.25 % Drop 17:03: [place] [address] [facility] CYCLOSPORIN 2020- Yes Place in [place] (RESTASIS 0-23 each eye. ity of OPHTHALMIC) 17:03: [place] [address] [facility] DOCOSAHEXAN 2020- Yes Take by [facility] vers OIC 0-23 mouth. ity of ACID/EPA 17:03: [place] (FISH OIL 43 Medical ORAL) Branch vitamin E 2020- Yes 1000U Take 1,000 [facility] 1,000 unit 0-23 Units by ity o f capsule 17:03: mouth [place] 43 daily. [facility] Branch Magnesium 2020- Yes Take by [facility] 250 mg Tab 0-23 mouth. ity of 17:03: [place] [address] [facility] vitamin B-6 2019- Yes 100mg Take 100 [facility] (VITAMIN 0-23 mg by ity of B-6) 100 mg 17:03: mouth [place] tablet 43 daily. [facility] Branch CALCIUM 2019- Yes Take by [facility] CARBONATE/V 0-23 mouth. ity of ITAMIN D3 17:03: [place] (VITAMIN 43 Medical D-3 ORAL) Branch alcaftadine 2020- Yes Place in [place] (LASTACAFT) 0-23 each eye. ity of 0.25 % Drop 17:03: [place] [address] [facility] CYCLOSPORIN 2019- Yes Place in [place] (RESTASIS 0-23 each eye. ity of OPHTHALMIC) 17:03: [place] [address] [facility] DOCOSAHEXAN 2020- Yes Take by [facility] vers OIC 0-23 mouth. ity of ACID/EPA 17:03: [place] (FISH OIL 43 Medical ORAL) Branch vitamin E 2020- Yes 1000U Take 1,000 [facility] 1,000 unit 0-23 Units by ity o f capsule 17:03: mouth [place] 43 daily. [facility] Branch Magnesium 2020-1 Yes Take by [facility] 250 mg Tab 0-23 mouth. ity of 17:03: [place] [address] [facility] vitamin B-6 2020- Yes 100mg Take 100 [facility] (VITAMIN 0-23 mg by ity of B-6) 100 mg 17:03: mouth [place] tablet 43 daily. [facility] Branch CALCIUM 2020- Yes Take by [facility] CARBONATE/V 0-23 mouth. ity of ITAMIN D3 17:03: [place] (VITAMIN 43 Medical D-3 ORAL) Branch alcaftadine 2019- Yes Place in [place] (LASTACAFT) 0-23 each eye. ity of 0.25 % Drop 17:03: [place] [address] [facility] CYCLOSPORIN 2019- Yes Place in [place] [facility] (RESTASIS 0-23 each eye. ity of OPHTHALMIC) 17:03: [place] [address] [facility] DOCOSAHEXAN 2019- Yes Take by [facility] OIC 0-23 mouth. ity of ACID/EPA 17:03: [place] (FISH OIL 43 Medical ORAL) Branch vitamin E 2019-09 Yes 1000U Take 1,000 [facility] 1,000 unit 0-23 Units by ity o f capsule 17:03: mouth [place] 43 daily. [facility] Branch Magnesium 2019- Yes Take by [facility] 250 mg Tab 0-23 mouth. ity of 17:03: [place] [address] [facility] vitamin B-6 2019-09 Yes 100mg Take 100 [facility] (VITAMIN 0-23 mg by ity of B-6) 100 mg 17:03: mouth [place] tablet 43 daily. [facility] Branch CALCIUM 2019- Yes Take by [facility] CARBONATE/V 0-23 mouth. ity of ITAMIN D3 17:03: [place] (VITAMIN 43 Medical D-3 ORAL) Branch alcaftadine 2019-[address] in [place] (LASTACAFT) 0-23 each eye. ity of 0.25 % Drop 17:03: [place] [address] [facility] CYCLOSPORIN 2019- Yes Place in [place] [facility] (RESTASIS 0-23 each eye. ity of OPHTHALMIC) 17:03: [place] [address] [facility] DOCOSAHEXAN 2019- Yes Take by [facility] OIC 0-23 mouth. ity of ACID/EPA 17:03: [place] (FISH OIL 43 Medical ORAL) Branch vitamin E 2019- Yes 1000U Take 1,000 [facility] 1,000 unit 0-23 Units by ity o f capsule 17:03: mouth [place] 43 daily. Medical Branch Magnesium 2020- Yes Take by [facility] 250 mg Tab 0-23 mouth. ity of 17:03: [place] [address] [facility] vitamin B-6 2019- Yes 100mg Take 100 [facility] (VITAMIN 0-23 mg by ity of B-6) 100 mg 17:03: mouth [place] tablet 43 daily. Medical Branch CALCIUM 2019- Yes Take by [facility] CARBONATE/V 0-23 mouth. ity of ITAMIN D3 17:03: [place] (VITAMIN 43 Medical D-3 ORAL) Branch alcaftadine 2019- Yes Place in [place] (LASTACAFT) 0-23 each eye. ity of 0.25 % Drop 17:03: [place] [address] [facility] CYCLOSPORIN 2019- Yes Place in [place] [facility] (RESTASIS 0-23 each eye. ity of OPHTHALMIC) 17:03: [place] [address] [facility] DOCOSAHEXAN 2019- Yes Take by [facility] OIC 0-23 mouth. ity of ACID/EPA 17:03: [place] (FISH OIL 43 Medical ORAL) Branch vitamin E 2019-09 Yes 1000U Take 1,000 [facility] 1,000 unit 0-23 Units by ity o f capsule 17:03: mouth [place] 43 daily. Medical Branch Magnesium 2019- Yes Take by [facility] 250 mg Tab 0-23 mouth. ity of 17:03: [place] [address] [facility] vitamin B-6 2019-09 Yes 100mg Take 100 [facility] (VITAMIN 0-23 mg by ity of B-6) 100 mg 17:03: mouth [place] tablet 43 daily. Medical Branch CALCIUM 2019- Yes Take by [facility] CARBONATE/V 0-23 mouth. ity of ITAMIN D3 17:03: [place] (VITAMIN 43 Medical D-3 ORAL) Branch alcaftadine 2019-[address] in [place] (LASTACAFT) 0-23 each eye. ity of 0.25 % Drop 17:03: [place] [address] [facility] CYCLOSPORIN 2019- Yes Place in [place] [facility] (RESTASIS 0-23 each eye. ity of OPHTHALMIC) 17:03: [place] [address] [facility] DOCOSAHEXAN 2019- Yes Take by [facility] vers OIC 0-23 mouth. ity of ACID/EPA 17:03: [place] (FISH OIL 43 Medical ORAL) Branch vitamin E 2019- Yes 1000U Take 1,000 [facility] 1,000 unit 0-23 Units by ity o f capsule 17:03: mouth [place] 43 daily. Medical Branch Magnesium 2020- Yes Take by [facility] 250 mg Tab 0-23 mouth. ity of 17:03: [place] [address] [facility] vitamin B-6 2019-09 Yes 100mg Take 100 [facility] (VITAMIN 0-23 mg by ity of B-6) 100 mg 17:03: mouth [place] tablet 43 daily. Medical Branch CALCIUM 2019-09 Yes Take by [facility] CARBONATE/V 0-23 mouth. ity of ITAMIN D3 17:03: [place] (VITAMIN 43 Medical D-3 ORAL) Branch alcaftadine 2019-[address] in [place] (LASTACAFT) 0-23 each eye. ity of 0.25 % Drop 17:03: [place] [address] [facility] CYCLOSPORIN 2019-[address] in [place] [facility] (RESTASIS 0-23 each eye. ity of OPHTHALMIC) 17:03: [place] [address] [facility] DOCOSAHEXAN 2019-09 Yes Take by [facility] vers OIC 0-23 mouth. ity of ACID/EPA 17:03: [place] (FISH OIL 43 Medical ORAL) Branch vitamin E 2019-09 Yes 1000U Take 1,000 [facility] 1,000 unit 0-23 Units by ity o f capsule 17:03: mouth [place] 43 daily. Medical Branch Magnesium 2019-09 Yes Take by [facility] 250 mg Tab 0-23 mouth. ity of 17:03: [place] [address] [facility] vitamin B-6 2019-09 Yes 100mg Take 100 [facility] (VITAMIN 0-23 mg by ity of B-6) 100 mg 17:03: mouth [place] tablet 43 daily. Medical Branch CALCIUM 2019-09 Yes Take by [facility] CARBONATE/V 0-23 mouth. ity of ITAMIN D3 17:03: [place] (VITAMIN 43 Medical D-3 ORAL) Branch DOCOSAHEXAN 2019-09 Yes Take by [facility] vers OIC 0-23 mouth. ity of ACID/EPA 17:03: [place] (FISH OIL 43 Medical ORAL) Branch DOCOSAHEXAN 2019- Yes Take by [facility] OIC 0-23 mouth. ity of ACID/EPA 17:03: [place] (FISH OIL 43 Medical ORAL) Branch DOCOSAHEXAN 2019- Yes Take by [facility] vers OIC 0-23 mouth. ity of ACID/EPA 17:03: [place] (FISH OIL 43 Medical ORAL) Branch DOCOSAHEXAN 2019- Yes Take by [facility] OIC 0-23 mouth. ity of ACID/EPA 17:03: [place] (FISH OIL 43 Medical ORAL) Branch DOCOSAHEXAN 2020-1 Yes Take by [facility] OIC 0-23 mouth. ity of ACID/EPA 17:03: [place] (FISH OIL 43 Medical ORAL) Branch DOCOSAHEXAN 2020-1 Yes Take by [facility] vers OIC 0-23 mouth. ity of ACID/EPA 17:03: [place] (FISH OIL 43 Medical ORAL) Branch DOCOSAHEXAN 2020-1 Yes Take by [facility] vers OIC 0-23 mouth. ity of ACID/EPA 17:03: [place] (FISH OIL 43 Medical ORAL) Branch DOCOSAHEXAN 2020-1 Yes Take by [facility] vers OIC 0-23 mouth. ity of ACID/EPA 17:03: [place] (FISH OIL 43 Medical ORAL) Branch DOCOSAHEXAN 2020-1 Yes Take by [facility] vers OIC 0-23 mouth. ity of ACID/EPA 17:03: [place] (FISH OIL 43 Medical ORAL) Branch DOCOSAHEXAN 2020-1 Yes Take by [facility] OIC 0-23 mouth. ity of ACID/EPA 17:03: [place] (FISH OIL 43 Medical ORAL) Branch DOCOSAHEXAN 2020-1 Yes Take by [facility] OIC 0-23 mouth. ity of ACID/EPA 17:03: [place] (FISH OIL 43 Medical ORAL) Branch DOCOSAHEXAN 2020-1 Yes Take by [facility] OIC 0-23 mouth. ity of ACID/EPA 17:03: [place] (FISH OIL 43 Medical ORAL) Branch DOCOSAHEXAN 2020-1 Yes Take by [facility] OIC 0-23 mouth. ity of ACID/EPA 17:03: [place] (FISH OIL 43 Medical ORAL) Branch DOCOSAHEXAN 2020-1 Yes Take by [facility] vers OIC 0-23 mouth. ity of ACID/EPA 17:03: [place] (FISH OIL 43 Medical ORAL) Branch DOCOSAHEXAN 2020-1 Yes Take by [facility] vers OIC 0-23 mouth. ity of ACID/EPA 12:03: [place] (FISH OIL 43 Medical ORAL) Branch DOCOSAHEXAN 2020-1 Yes Take by [facility] vers OIC 0-23 mouth. ity of ACID/EPA 12:03: [place] (FISH OIL 43 Medical ORAL) Branch DOCOSAHEXAN 2020-1 Yes Take by [facility] OIC 0-23 mouth. ity of ACID/EPA 12:03: [place] (FISH OIL 43 Medical ORAL) Branch DOCOSAHEXAN 2020-1 Yes Take by [facility] vers OIC 0-23 mouth. ity of ACID/EPA 12:03: [place] (FISH OIL 43 Medical ORAL) Branch DOCOSAHEXAN 2019- Yes Take by [facility] vers OIC 0-23 mouth. ity of ACID/EPA 12:03: [place] (FISH OIL 43 Medical ORAL) Branch metoprolol 2019- Yes [id number] 25mg Take 1 U nivers succinate 0-23 tablet by ity o f XL 25 mg 24 00:00: mouth 2 [place] [facility] tablet 00 (two) Medical times [place] daily. metoprolol 2019-09 Yes [id number] 25mg Take 1 [facility] succinate 0-23 tablet by ity o f XL 25 mg 24 00:00: mouth 2 [place] [facility] tablet 00 (two) Medical times [place] daily. LEVOTHYROXI 2019- Yes [id number] TAKE 1 [facility] [place] 50 mcg 0-23 TABLET BY [facility] o f tablet 00:00: MOUTH [place] 00 EVERY DAY Medical IN THE [place] MORNING metoprolol 2019- Yes [id number] 25mg Take 1 U nivers succinate 0-23 tablet by ity o f XL 25 mg 24 00:00: mouth 2 [facility] as hr tablet 00 (two) Medical times [place] daily. LEVOTHYROXI 2019- Yes [id number] TAKE 1 [facility] [place] 50 mcg 0-23 TABLET BY it[facility] o f tablet 00:00: MOUTH [place] 00 EVERY DAY Medical IN THE [place] MORNING metoprolol 2019- Yes [id number] 25mg Take 1 U nivers succinate 0-23 tablet by ity o f XL 25 mg 24 00:00: mouth 2 [place] [facility] tablet 00 (two) Medical times [place] daily. LEVOTHYROXI 2020- Yes [id number] TAKE 1 [facility] mcg 0-23 TABLET BY ity o f tablet 00:00: MOUTH [place] 00 EVERY DAY Medical IN THE [place] MORNING metoprolol 2020- Yes [id number] 25mg Take 1 U n[facility] succinate 0-23 tablet by ity o f XL 25 mg 24 00:00: mouth 2 [place] tablet 00 (two) Medical times [place] daily. LEVOTHYROXI 2020- Yes [id number] TAKE 1 [facility] 50 mcg 0-23 TABLET BY it[facility] o f tablet 00:00: MOUTH [place] 00 EVERY DAY Medical IN THE [place] MORNING metoprolol 2020- Yes [id number] 25mg Take 1 [facility] succinate 0-23 tablet by ity o f XL 25 mg 24 00:00: mouth 2 [place] tablet 00 (two) Medical times Branch daily. LEVOTHYROXI 2019- Yes [id number] TAKE 1 [facility] 50 mcg 0-23 TABLET BY ity o f tablet 00:00: MOUTH [place] 00 EVERY DAY Medical IN THE Branch MORNING metoprolol 2019-09 Yes [id number] 25mg Take 1 U nivers succinate 0-23 tablet by ity o f XL 25 mg 24 00:00: mouth 2 [place] tablet 00 (two) Medical times Branch daily. LEVOTHYROXI 2019-09 Yes [id number] TAKE 1 [facility] 50 mcg 0-23 TABLET BY ity o f tablet 00:00: MOUTH [place] 00 EVERY DAY Medical IN THE Branch MORNING metoprolol 2019-09 Yes [id number] 25mg Take 1 U n[facility] succinate 0-23 tablet by ity o f XL 25 mg 24 00:00: mouth 2 [place] tablet 00 (two) Medical times [place] daily. LEVOTHYROXI 2019-09 Yes [id number] TAKE 1 [facility] 50 mcg 0-23 TABLET BY ity o f tablet 00:00: MOUTH [place] 00 EVERY DAY Medical IN THE Branch MORNING metoprolol 2019-09 Yes [id number] 25mg Take 1 U n[facility] succinate 0-23 tablet by ity o f XL 25 mg 24 00:00: mouth 2 [place] [facility] tablet 00 (two) Medical times Branch daily. LEVOTHYROXI 2019-09 Yes [id number] TAKE 1 [facility] 50 mcg 0-23 TABLET BY ity o f tablet 00:00: MOUTH [place] 00 EVERY DAY Medical IN THE Branch MORNING metoprolol 2019- Yes [id number] 25mg Take 1 U nivers succinate 0-23 tablet by ity o f XL 25 mg 24 00:00: mouth 2 [place] tablet 00 (two) Medical times Branch daily. LEVOTHYROXI 2019-09 Yes [id number] TAKE 1 [facility] 50 mcg 0-23 TABLET BY ity o f tablet 00:00: MOUTH [place] 00 EVERY DAY Medical IN THE Branch MORNING metoprolol 2019- Yes [id number] 25mg Take 1 U n[facility] succinate 0-23 tablet by ity o f XL 25 mg 24 00:00: mouth 2 [place] tablet 00 (two) Medical times Branch daily. LEVOTHYROXI 2019- Yes [id number] TAKE 1 [facility] 50 mcg 0-23 TABLET BY ity o f tablet 00:00: MOUTH [place] 00 EVERY DAY Medical IN THE [place] MORNING metoprolol 2019-09 Yes [id number] 25mg Take 1 [facility] n[facility] succinate 0-23 tablet by ity o f XL 25 mg 24 00:00: mouth 2 [place] [facility] tablet 00 (two) Medical times [place] daily. LEVOTHYROXI 2019-09 Yes [id number] TAKE 1 [facility] 50 mcg 0-23 TABLET BY ity o f tablet 00:00: MOUTH [place] 00 EVERY DAY Medical IN THE [place] MORNING metoprolol 2019-09 Yes [id number] 25mg Take 1 U nivers succinate 0-23 tablet by ity o f XL 25 mg 24 00:00: mouth 2 [place] [facility] tablet 00 (two) Medical times [place] daily. LEVOTHYROXI 2019-09 Yes [id number] TAKE 1 [facility] 50 mcg 0-23 TABLET BY ity o f tablet 00:00: MOUTH [place] 00 EVERY DAY Medical IN THE [place] MORNING metoprolol 2019-09 Yes [id number] 25mg Take 1 [facility] nivers succinate 0-23 tablet by ity o f XL 25 mg 24 00:00: mouth 2 [place] [facility] tablet 00 (two) Medical times [place] daily. LEVOTHYROXI 2019-09 Yes [id number] TAKE 1 [facility] 50 mcg 0-23 TABLET BY ity o f tablet 00:00: MOUTH [place] 00 EVERY DAY Medical IN THE [facility] LEVOTHYROXI 2019-09 Yes [id number] TAKE 1 [facility] 50 mcg 0-23 TABLET BY ity o f tablet 00:00: MOUTH [place] 00 EVERY DAY Medical IN THE [place] MORNING LEVOTHYROXI 2019-09 Yes [id number] TAKE 1 [facility] 50 mcg 0-23 TABLET BY ity o f tablet 00:00: MOUTH [place] 00 EVERY DAY Medical IN THE [place] MORNING LEVOTHYROXI 2019-09 Yes [id number] TAKE 1 [facility] 50 mcg 0-23 TABLET BY ity o f tablet 00:00: MOUTH [place] 00 EVERY DAY Medical IN THE [place] MORNING LEVOTHYROXI 2019- Yes [id number] TAKE 1 [facility] 50 mcg 0-23 TABLET BY ity o f tablet 00:00: MOUTH [place] 00 EVERY DAY Medical IN THE [place] MORNING LEVOTHYROXI 2019- Yes [id number] TAKE 1 [facility] mcg 0-23 TABLET BY ity o f tablet 00:00: MOUTH [place] 00 EVERY DAY Medical IN THE [facility] LEVOTHYROXI 2019-09 Yes [id number] TAKE 1 [facility] 50 mcg 0-23 TABLET BY ity o f tablet 00:00: MOUTH [place] 00 EVERY DAY Medical IN THE [facility] LEVOTHYROXI 2019-09 Yes [id number] TAKE 1 [facility] 50 mcg 0-23 TABLET BY ity o f tablet 00:00: MOUTH [place] 00 EVERY DAY Medical IN THE [facility] LEVOTHYROXI 2019-09 Yes [id number] TAKE 1 [facility] 50 mcg 0-23 TABLET BY ity o f tablet 00:00: MOUTH [place] 00 EVERY DAY Medical IN THE [facility] LEVOTHYROXI 2019-09 Yes [id number] TAKE 1 [facility] 50 mcg 0-23 TABLET BY ity o f tablet 00:00: MOUTH [place] 00 EVERY DAY Medical IN THE [facility] LEVOTHYROXI 2019-09 Yes [id number] TAKE 1 [facility] 50 mcg 0-23 TABLET BY ity o f tablet 00:00: MOUTH [place] 00 EVERY DAY Medical IN THE [facility] LEVOTHYROXI 2019-09 Yes [id number] TAKE 1 [facility] 50 mcg 0-23 TABLET BY ity o f tablet 00:00: MOUTH [place] 00 EVERY DAY Medical IN THE [facility] LEVOTHYROXI 2019-09 Yes [id number] TAKE 1 [facility] 50 mcg 0-23 TABLET BY ity o f tablet 00:00: MOUTH [place] 00 EVERY DAY Medical IN THE [facility] LEVOTHYROXI 2019-09 Yes [id number] TAKE 1 [facility] 50 mcg 0-23 TABLET BY ity o f tablet 00:00: MOUTH [place] 00 EVERY DAY Medical IN THE [facility] LEVOTHYROXI 2019-09 Yes [id number] TAKE 1 [facility] 50 mcg 0-23 TABLET BY ity o f tablet 00:00: MOUTH [place] 00 EVERY DAY Medical IN THE [facility] LEVOTHYROXI 2019-09 Yes [id number] TAKE 1 [facility] 50 mcg 0-23 TABLET BY ity o f tablet 00:00: MOUTH [place] 00 EVERY DAY Medical IN THE [facility] LEVOTHYROXI 2019-09 Yes [id number] TAKE 1 [facility] 50 mcg 0-23 TABLET BY ity o f tablet 00:00: MOUTH [place] 00 EVERY DAY Medical IN THE [facility] LEVOTHYROXI 2019-09 Yes [id number] TAKE 1 [facility] 50 mcg 0-23 TABLET BY ity o f tablet 00:00: MOUTH [place] 00 EVERY DAY Medical IN THE [facility] LEVOTHYROXI 2020 Yes [id number] TAKE 1 [facility] 50 mcg 0-23 TABLET BY ity o f tablet 00:00: MOUTH [place] 00 EVERY DAY Medical IN THE [facility] LEVOTHYROXI 2019-09 Yes [id number] TAKE 1 [facility] 50 mcg 0-23 TABLET BY ity o f tablet 00:00: MOUTH [place] 00 EVERY DAY Medical IN THE [facility] LEVOTHYROXI 2019-09 Yes [id number] TAKE 1 [facility] 50 mcg 0-23 TABLET BY ity o f tablet 00:00: MOUTH [place] 00 EVERY DAY Medical IN THE [facility] LEVOTHYROXI 2019-09 Yes [id number] TAKE 1 [facility] 50 mcg 0-23 TABLET BY ity o f tablet 00:00: MOUTH [place] 00 EVERY DAY Medical IN THE [facility] LEVOTHYROXI 2019-09 Yes [id number] TAKE 1 [facility] 50 mcg 0-23 TABLET BY ity o f tablet 00:00: MOUTH [place] 00 EVERY DAY Medical IN THE [facility] LEVOTHYROXI 2019-09 Yes [id number] TAKE 1 [facility] 50 mcg 0-23 TABLET BY ity o f tablet 00:00: MOUTH [place] 00 EVERY DAY Medical IN THE [facility] LEVOTHYROXI 2019-09 Yes [id number] TAKE 1 [facility] 50 mcg 0-23 TABLET BY ity o f tablet 00:00: MOUTH [place] 00 EVERY DAY Medical IN THE [facility] LEVOTHYROXI 2019-09 Yes [id number] TAKE 1 [facility] 50 mcg 0-23 TABLET BY ity o f tablet 00:00: MOUTH [place] 00 EVERY DAY Medical IN THE [facility] LEVOTHYROXI 2019-09 Yes [id number] TAKE 1 [facility] 50 mcg 0-23 TABLET BY ity o f tablet 00:00: MOUTH [place] 00 EVERY DAY Medical IN THE [facility] LEVOTHYROXI 2019-09 Yes [id number] TAKE 1 [facility] 50 mcg 0-23 TABLET BY ity o f tablet 00:00: MOUTH [place] 00 EVERY DAY Medical IN THE [facility] LEVOTHYROXI 2019-09 Yes [id number] TAKE 1 [facility] 50 mcg 0-23 TABLET BY ity o f tablet 00:00: MOUTH [place] 00 EVERY DAY Medical IN THE [facility] LEVOTHYROXI 2019-09 Yes [id number] TAKE 1 [facility] 50 mcg 0-23 TABLET BY ity o f tablet 00:00: MOUTH [place] 00 EVERY DAY Medical IN THE [place] MORNING LEVOTHYROXI 2019-09 Yes [id number] TAKE 1 [facility] 50 mcg 0-23 TABLET BY ity o f tablet 00:00: MOUTH [place] 00 EVERY DAY Medical IN THE [place] MORNING LEVOTHYROXI 2019-09 Yes [id number] TAKE 1 [facility] 50 mcg 0-23 TABLET BY ity o f tablet 00:00: MOUTH [place] 00 EVERY DAY Medical IN THE [place] MORNING LEVOTHYROXI 2019-09- No [id number] TAKE 1 [facility] 50 mcg 0-23 05-05 TABLET BY ity of tablet 00:00: 00:00 MOUTH [place] 00 :00 EVERY DAY Medical IN THE [place] MORNING metoprolol 2019-09 2020- No [id number] 25mg Take 1 [facility] succinate 0-23 12-09 tablet by ity of XL 25 mg 24 00:00: 00:00 mouth 2 [place] hr tablet 00 :00 (two) Medical times [place] daily. metoprolol 2019-09- No [id number] 25mg Take 1 [facility] succinate 0-23 12-09 tablet by ity of XL 25 mg 24 00:00: 00:00 mouth 2 [place] tablet 00 :00 (two) Medical times [place] daily. metoprolol 2019-09- No [id number] 25mg Take 1 [facility] succinate 0-23 12-09 tablet by ity of XL 25 mg 24 00:00: 00:00 mouth 2 [place] hr tablet 00 :00 (two) Medical times [place] daily. ASCORBATE 2019-09 2020- No Take by [facility] CALCIUM 0-05 10-05 mouth. ity of (VITAMIN C 20:39: 00:00 [place] ORAL) 59 :00 Medical Branch ASCORBATE 2019-09 2020- No Take by [facility] ers CALCIUM 0-05 10-05 mouth. ity of (VITAMIN C 20:39: 00:00 [place] ORAL) 59 :00 Medical Branch CYCLOSPORIN 2019-[address] [place] E (RESTASIS 0-05 each eye. ity of OPHTHALMIC) 20:35: [address] Branch DOCOSAHEXAN 2019-09 Yes Take by Uni vers OIC 0-05 mouth. ity of ACID/EPA 20:35: [place] (FISH OIL 33 Medical ORAL) Branch vitamin E 2019-09 Yes 1000U Take 1,000 U nivers 1,000 unit 0-05 Units by ity o f capsule 20:35: mouth [place] 33 daily. Medical Branch Magnesium 2019-09 Yes Take by Unive rs 250 mg Tab 0-05 mouth. ity of 20:35: Medical Branch vitamin B-6 2019-09 Yes 100mg Take 100 U nivers (VITAMIN 0-05 mg by ity of B-6) 100 mg 20:35: mouth [place] tablet 33 daily. Medical Branch CYCLOSPORIN 2019-[address] [place] (RESTASIS 0-05 each eye. ity of OPHTHALMIC) 20:35: Medical Branch DOCOSAHEXAN 2019-09 Yes Take by Uni vers OIC 0-05 mouth. ity of ACID/EPA 20:35: [place] (FISH OIL 33 Medical ORAL) Branch vitamin E 2019-09 Yes 1000U Take 1,000 U nivers 1,000 unit 0-05 Units by ity o f capsule 20:35: mouth [place] 33 daily. Medical Branch Magnesium 2019-09 Yes Take by Unive rs 250 mg Tab 0-05 mouth. ity of 20:35: Medical Branch vitamin B-6 2019-09 Yes 100mg Take 100 U nivers (VITAMIN 0-05 mg by ity of B-6) 100 mg 20:35: mouth [place] tablet 33 daily. Medical Branch CYCLOSPORIN 2019-[address] [place] (RESTASIS 0-05 each eye. ity of OPHTHALMIC) 20:35: Medical Branch DOCOSAHEXAN 2019-09 Yes Take by [place] OIC 0-05 mouth. ity of ACID/EPA 20:35: [place] (FISH OIL 33 Medical ORAL) Branch vitamin E 2019-09 Yes 1000U Take 1,000 U nivers 1,000 unit 0-05 Units by ity o f capsule 20:35: mouth [place] 33 daily. Medical Branch Magnesium 2019-09 Yes Take by Unive [facility] 250 mg Tab 0-05 mouth. ity of 20:35: Medical Branch vitamin B-6 2019-09 Yes 100mg Take 100 U nivers (VITAMIN 0-05 mg by ity of B-6) 100 mg 20:35: mouth [place] tablet 33 daily. Medical Branch CYCLOSPORIN 2019-[address] [place] (RESTASIS 0-05 each eye. ity of OPHTHALMIC) 20:35: [place] [address] Medical Branch DOCOSAHEXAN 2019- Yes Take by Uni vers OIC 0-05 mouth. ity of ACID/EPA 20:35: [place] (FISH OIL 33 Medical ORAL) Branch vitamin E 2019- Yes 1000U Take 1,000 U nivers 1,000 unit 0-05 Units by ity o f capsule 20:35: mouth [place] 33 daily. Medical Branch Magnesium 2019-09 Yes Take by Unive rs 250 mg Tab 0-05 mouth. ity of 20:35: [place] [address] Medical Branch vitamin B-6 2019-09 Yes 100mg Take 100 U nivers (VITAMIN 0-05 mg by ity of B-6) 100 mg 20:35: mouth [place] tablet 33 daily. Medical Branch CYCLOSPORIN 2019-[address] [place] (RESTASIS 0-05 each eye. ity of OPHTHALMIC) 20:35: [place] [address] Medical Branch DOCOSAHEXAN 2019-09 Yes Take by Uni vers OIC 0-05 mouth. ity of ACID/EPA 20:35: [place] (FISH OIL 33 Medical ORAL) Branch vitamin E 2019-09 Yes 1000U Take 1,000 U nivers 1,000 unit 0-05 Units by ity o f capsule 20:35: mouth [place] 33 daily. Medical Branch Magnesium 2019-09 Yes Take by Un[facility] 250 mg Tab 0-05 mouth. ity of 20:35: [place] [address] Medical Branch vitamin B-6 2019-09 Yes 100mg Take 100 U nivers (VITAMIN 0-05 mg by ity of B-6) 100 mg 20:35: mouth [place] tablet 33 daily. Medical Branch CYCLOSPORIN 2019-[address] [place] (RESTASIS 0-05 each eye. ity of OPHTHALMIC) 20:35: [place] [address] Medical Branch DOCOSAHEXAN 2019-09 Yes Take by Uni vers OIC 0-05 mouth. ity of ACID/EPA 20:35: [place] (FISH OIL 33 Medical ORAL) Branch vitamin E 2019-09 Yes 1000U Take 1,000 U nivers 1,000 unit 0-05 Units by ity o f capsule 20:35: mouth [place] 33 daily. Medical Branch Magnesium 2019-09 Yes Take by Un[facility] 250 mg Tab 0-05 mouth. ity of 20:35: [place] [address] Medical Branch vitamin B-6 2019- Yes 100mg Take 100 U nivers (VITAMIN 0-05 mg by ity of B-6) 100 mg 20:35: mouth [place] tablet 33 daily. Medical Branch CYCLOSPORIN 2019-[address] [place] (RESTASIS 0-05 each eye. ity of OPHTHALMIC) 20:35: [place] 33 Medical Branch DOCOSAHEXAN 2019-09 Yes Take by Uni vers OIC 0-05 mouth. ity of ACID/EPA 20:35: [place] (FISH OIL 33 Medical ORAL) Branch vitamin E 2019-09 Yes 1000U Take 1,000 U nivers 1,000 unit 0-05 Units by ity o f capsule 20:35: mouth [place] 33 daily. Medical Branch Magnesium 2019-09 Yes Take by Un[facility] 250 mg Tab 0-05 mouth. ity of 20:35: [place] 33 Medical Branch vitamin B-6 2019-09 Yes 100mg Take 100 U nivers (VITAMIN 0-05 mg by ity of B-6) 100 mg 20:35: mouth [place] tablet 33 daily. Medical Branch CYCLOSPORIN 2019-[address] in [place] (RESTASIS 0-05 each eye. ity of OPHTHALMIC) 20:35: [place] 33 Medical Branch DOCOSAHEXAN 2019-09 Yes Take by Uni vers OIC 0-05 mouth. ity of ACID/EPA 20:35: [place] (FISH OIL 33 Medical ORAL) Branch vitamin E 2019-09 Yes 1000U Take 1,000 U nivers 1,000 unit 0-05 Units by ity o f capsule 20:35: mouth [place] 33 daily. Medical Branch Magnesium 2019-09 Yes Take by Un[facility] rs 250 mg Tab 0-05 mouth. ity of 20:35: [place] 33 Medical Branch vitamin B-6 2019-09 Yes 100mg Take 100 U nivers (VITAMIN 0-05 mg by ity of B-6) 100 mg 20:35: mouth [place] tablet 33 daily. Medical Branch metoprolol 2019-09 Yes [id number] 25mg Take 1 U nivers succinate 0-05 tablet by ity o f XL 25 mg 24 00:00: mouth [place] hr tablet 00 every day Medic al at 1200 Branch (noon). metformin 2019-09 Yes [id number] 750mg Take 1 U nivers ER 750 mg 0-05 tablet by ity o f 24 hr 00:00: mouth 2 [place] tablet 00 (two) Medical times Branch daily with meals. DOSE INCREASE. metoprolol 2019-09 Yes [id number] 25mg Take 1 U nivers succinate 0-05 tablet by ity o f XL 25 mg 24 00:00: mouth [place] hr tablet 00 every day Medic al at 1200 Branch (noon). metformin 2020-1 Yes [id number] 750mg Take 1 U nivers ER 750 mg 0-05 tablet by ity o f 24 hr 00:00: mouth 2 [place] tablet 00 (two) Medical times Branch daily with meals. DOSE INCREASE. metoprolol 2019- Yes [id number] 25mg Take 1 U nivers succinate 0-05 tablet by ity o f XL 25 mg 24 00:00: mouth [place] hr tablet 00 every day Medic al at 1200 Branch (noon). metformin 2019- Yes [id number] 750mg Take 1 U nivers ER 750 mg 0-05 tablet by ity o f 24 hr 00:00: mouth 2 [place] tablet 00 (two) Medical times Branch daily with meals. DOSE INCREASE. metoprolol 2019- Yes [id number] 25mg Take 1 U nivers succinate 0-05 tablet by ity o f XL 25 mg 24 00:00: mouth [place] hr tablet 00 every day Medic al at 1200 Branch (noon). metformin 2019- Yes [id number] 750mg Take 1 U nivers ER 750 mg 0-05 tablet by ity o f 24 hr 00:00: mouth 2 [place] tablet 00 (two) Medical times Branch daily with meals. DOSE INCREASE. metoprolol 2019- Yes [id number] 25mg Take 1 U nivers succinate 0-05 tablet by ity o f XL 25 mg 24 00:00: mouth [place] hr tablet 00 every day Medic al at 1200 Branch (noon). metformin 2019- Yes [id number] 750mg Take 1 U nivers ER 750 mg 0-05 tablet by ity o f 24 hr 00:00: mouth 2 [place] tablet 00 (two) Medical times Branch daily with meals. DOSE INCREASE. metoprolol 2019- Yes [id number] 25mg Take 1 U nivers succinate 0-05 tablet by ity o f XL 25 mg 24 00:00: mouth [place] hr tablet 00 every day Medic al at 1200 Branch (noon). metformin 2019-1 Yes [id number] 750mg Take 1 U nivers ER 750 mg 0-05 tablet by ity o f 24 hr 00:00: mouth 2 [place] tablet 00 (two) Medical times Branch daily with meals. DOSE INCREASE. metoprolol 2019- Yes [id number] 25mg Take 1 U nivers succinate 0-05 tablet by ity o f XL 25 mg 24 00:00: mouth [place] hr tablet 00 every day Medic al at 1200 Branch (noon). metformin 2019-09 Yes [id number] 750mg Take 1 U nivers ER 750 mg 0-05 tablet by ity o f 24 hr 00:00: mouth 2 [place] tablet 00 (two) Medical times Branch daily with meals. DOSE INCREASE. metoprolol 2019-09 Yes [id number] 25mg Take 1 U nivers succinate 0-05 tablet by ity o f XL 25 mg 24 00:00: mouth [place] hr tablet 00 every day Medic al at 1200 Branch (noon). metformin 2019-09 Yes [id number] 750mg Take 1 U nivers ER 750 mg 0-05 tablet by ity o f 24 hr 00:00: mouth 2 [place] tablet 00 (two) Medical times Branch daily with meals. DOSE INCREASE. metformin 2019-09 Yes [id number] 750mg Take 1 U nivers ER 750 mg 0-05 tablet by ity o f 24 hr 00:00: mouth 2 [place] tablet 00 (two) Medical times Branch daily with meals. DOSE INCREASE. metformin 2019-09 Yes [id number] 750mg Take 1 U nivers ER 750 mg 0-05 tablet by ity o f 24 hr 00:00: mouth 2 [place] tablet 00 (two) Medical times Branch daily with meals. DOSE INCREASE. metformin 2019-09 Yes [id number] 750mg Take 1 U nivers ER 750 mg 0-05 tablet by ity o f 24 hr 00:00: mouth 2 [place] tablet 00 (two) Medical times Branch daily with meals. DOSE INCREASE. metformin 2019-09 Yes [id number] 750mg Take 1 U nivers ER 750 mg 0-05 tablet by ity o f 24 hr 00:00: mouth 2 [place] tablet 00 (two) Medical times Branch daily with meals. DOSE INCREASE. metformin 2019-09 Yes [id number] 750mg Take 1 U nivers ER 750 mg 0-05 tablet by ity o f 24 hr 00:00: mouth 2 [place] tablet 00 (two) Medical times Branch daily with meals. DOSE INCREASE. metformin 2019-09 Yes [id number] 750mg Take 1 U nivers ER 750 mg 0-05 tablet by ity o f 24 hr 00:00: mouth 2 [place] tablet 00 (two) Medical times Branch daily with meals. DOSE INCREASE. metformin 2019- Yes [id number] 750mg Take 1 U nivers ER 750 mg 0-05 tablet by ity o f 24 hr 00:00: mouth 2 [place] tablet 00 (two) Medical times Branch daily with meals. DOSE INCREASE. metformin 2019- Yes [id number] 750mg Take 1 U nivers ER 750 mg 0-05 tablet by ity o f 24 hr 00:00: mouth 2 [place] tablet 00 (two) Medical times Branch daily with meals. DOSE INCREASE. metformin 2019-09 Yes [id number] 750mg Take 1 U nivers ER 750 mg 0-05 tablet by ity o f 24 hr 00:00: mouth 2 [place] tablet 00 (two) Medical times Branch daily with meals. DOSE INCREASE. metformin 2019-09 Yes [id number] 750mg Take 1 U nivers ER 750 mg 0-05 tablet by ity o f 24 hr 00:00: mouth 2 [place] tablet 00 (two) Medical times Branch daily with meals. DOSE INCREASE. metformin 2019-09 2020- No [id number] 750mg Take 1 [facility] ER 750 mg 0-05 11-28 tablet by ity of 24 hr 00:00: 00:00 mouth 2 [place] tablet 00 :00 (two) Medical times Branch daily with meals. DOSE INCREASE. metoprolol 2019-09- No [id number] 25mg Take 1 [facility] succinate 0-05 10-23 tablet by ity of XL 25 mg 24 00:00: 00:00 mouth [place] hr tablet 00 :00 every day Medic al at 1200 Branch (noon). metoprolol 2019-09- No [id number] 25mg Take 1 [facility] succinate 0-05 10-23 tablet by ity of XL 25 mg 24 00:00: 00:00 mouth [place] hr tablet 00 :00 every day Medic al at 1200 Branch (noon). alcaftadine 2020-[address] [place] (LASTACAFT) 06-09 each eye. ity of 0.25 % Drop 19:20: [address] CYCLOSPORIN 2019-[address] in [place] E (RESTASIS 06-09 each eye. ity of OPHTHALMIC) 19:20: [address] ASCORBATE 2020-0 Yes Take by Unive rs CALCIUM 06-09 mouth. ity of (VITAMIN C 19:20: [place] ORAL) 49 Medical Branch DOCOSAHEXAN 2020-0 Yes Take by Uni vers OIC 06-09 mouth. ity of ACID/EPA 19:20: [place] (FISH OIL 49 Medical ORAL) Branch vitamin E 2020-0 Yes 1000U Take 1,000 U nivers 1,000 unit 9-23 Units by ity o f capsule 19:20: mouth [place] 49 daily. Medical Branch Magnesium 2020-0 Yes Take by Un[facility] rs 250 mg Tab 06-09 mouth. ity of 19:20: [place] [address] Medical Branch vitamin B-6 2020-0 Yes 100mg Take 100 U nivers (VITAMIN 9-23 mg by ity of B-6) 100 mg 19:20: mouth [place] tablet 49 daily. Medical Branch CALCIUM 2020-0 Yes Take by Univers CARBONATE/V 06-09 mouth. ity of ITAMIN D3 19:20: [place] (VITAMIN 49 Medical D-3 ORAL) Branch alcaftadine 2020-[address] [place] (LASTACAFT) 06-09 each eye. ity of 0.25 % Drop 19:20: [place] [address] Medical Branch CYCLOSPORIN 2020-[address] in [place] E (RESTASIS 06-09 each eye. ity of OPHTHALMIC) 19:20: [place] [address] Medical Branch ASCORBATE 2020-0 Yes Take by Unive rs CALCIUM - mouth. ity of (VITAMIN C 19:20: [place] ORAL) 49 Medical Branch DOCOSAHEXAN 2020-0 Yes Take by Uni vers OIC 06-09 mouth. ity of ACID/EPA 19:20: [place] (FISH OIL 49 Medical ORAL) Branch vitamin E 2020-0 Yes 1000U Take 1,000 U nivers 1,000 unit 9-23 Units by ity o f capsule 19:20: mouth [place] 49 daily. Medical Branch Magnesium 2020-0 Yes Take by [facility] 250 mg Tab 06-09 mouth. ity of 19:20: [place] [address] Medical Branch vitamin B-6 2020-0 Yes 100mg Take 100 U nivers (VITAMIN 9-23 mg by ity of B-6) 100 mg 19:20: mouth [place] tablet 49 daily. Medical Branch CALCIUM 2020-0 Yes Take by [facility] CARBONATE/V - mouth. ity of ITAMIN D3 19:20: [place] (VITAMIN 49 Medical D-3 ORAL) Branch alcaftadine 2020-[address] [place] (LASTACAFT) 9- each eye. ity of 0.25 % Drop 19:20: [place] [address] Medical Branch CYCLOSPORIN 2020-[address] in [place] E (RESTASIS 06-09 each eye. ity of OPHTHALMIC) 19:20: [place] 49 Medical Branch ASCORBATE 2020-0 Yes Take by Un[facility] rs CALCIUM 06-09 mouth. ity of (VITAMIN C 19:20: [place] ORAL) 49 Medical Branch DOCOSAHEXAN 2020-0 Yes Take by Uni vers OIC 06-09 mouth. ity of ACID/EPA 19:20: [place] (FISH OIL 49 Medical ORAL) Branch vitamin E 2020-0 Yes 1000U Take 1,000 U nivers 1,000 unit -23 Units by ity o f capsule 19:20: mouth [place] 49 daily. Medical Branch Magnesium 2020-0 Yes Take by [facility] 250 mg Tab 06-09 mouth. ity of 19:20: [place] [address] Medical Branch vitamin B-6 2020-0 Yes 100mg Take 100 U nivers (VITAMIN 9-23 mg by ity of B-6) 100 mg 19:20: mouth [place] tablet 49 daily. Medical Branch CALCIUM 2020-0 Yes Take by [facility] CARBONATE/V 06-09 mouth. ity of ITAMIN D3 19:20: [place] (VITAMIN 49 Medical D-3 ORAL) Branch alcaftadine 2020-[address] in [place] (LASTACAFT) 9 each eye. ity of 0.25 % Drop 19:20: [place] [address] Medical Branch CYCLOSPORIN 2020-[address] in [place] E (RESTASIS 06-09 each eye. ity of OPHTHALMIC) 19:20: [place] [address] Medical Branch ASCORBATE 2020-0 Yes Take by Unive rs CALCIUM 06-09 mouth. ity of (VITAMIN C 19:20: [place] ORAL) 49 Medical Branch DOCOSAHEXAN 2020-0 Yes Take by Uni vers OIC 06-09 mouth. ity of ACID/EPA 19:20: [place] (FISH OIL 49 Medical ORAL) Branch vitamin E 2020-0 Yes 1000U Take 1,000 U nivers 1,000 unit -23 Units by ity o f capsule 19:20: mouth [place] 49 daily. Medical Branch Magnesium 2020-0 Yes Take by [facility] rs 250 mg Tab 06-09 mouth. ity of 19:20: [place] [address] Medical Branch vitamin B-6 2020-0 Yes 100mg Take 100 U nivers (VITAMIN 9-23 mg by ity of B-6) 100 mg 19:20: mouth [place] tablet 49 daily. Medical Branch CALCIUM 2020-0 Yes Take by Univers CARBONATE/V 06-09 mouth. ity of ITAMIN D3 19:20: [place] (VITAMIN 49 Medical D-3 ORAL) Branch alcaftadine 2020-[address] in [place] (LASTACAFT) 9 each eye. ity of 0.25 % Drop 19:20: [place] [address] Medical Branch CYCLOSPORIN 2020-[address] in [place] E (RESTASIS 06-09 each eye. ity of OPHTHALMIC) 19:20: [place] [address] Medical Branch ASCORBATE 2020-0 Yes Take by Un[facility] rs CALCIUM 06-09 mouth. ity of (VITAMIN C 19:20: [place] ORAL) 49 Medical Branch DOCOSAHEXAN 2020-0 Yes Take by Uni vers OIC 06-09 mouth. ity of ACID/EPA 19:20: [place] (FISH OIL 49 Medical ORAL) Branch vitamin E 2020-0 Yes 1000U Take 1,000 U nivers 1,000 unit 06-09 Units by ity o f capsule 19:20: mouth [place] 49 daily. Medical Branch Magnesium 2020-0 Yes Take by Unive rs 250 mg Tab 06-09 mouth. ity of 19:20: [place] [address] Medical Branch vitamin B-6 2020-0 Yes 100mg Take 100 U nivers (VITAMIN 9-23 mg by ity of B-6) 100 mg 19:20: mouth [place] tablet 49 daily. Medical Branch CALCIUM 2020-0 Yes Take by [facility] CARBONATE/V 06-09 mouth. ity of ITAMIN D3 19:20: [place] (VITAMIN 49 Medical D-3 ORAL) Branch alcaftadine 2020-[address] in [facility] [place] (LASTACAFT) 06-09 each eye. ity of 0.25 % Drop 19:20: [place] [address] Medical Branch CYCLOSPORIN 2020-[address] [facility] [place] E (RESTASIS 06-09 each eye. ity of OPHTHALMIC) 19:20: [place] [address] Medical Branch ASCORBATE 2020-0 Yes Take by Unive rs CALCIUM 06-09 mouth. ity of (VITAMIN C 19:20: [place] ORAL) 49 Medical Branch DOCOSAHEXAN 2020-0 Yes Take by Uni vers OIC 06-09 mouth. ity of ACID/EPA 19:20: [place] (FISH OIL 49 Medical ORAL) Branch vitamin E 2020-0 Yes 1000U Take 1,000 U nivers 1,000 unit 06-09 Units by ity o f capsule 19:20: mouth [place] 49 daily. Medical Branch Magnesium 2020-0 Yes Take by [facility] 250 mg Tab 06-09 mouth. ity of 19:20: [place] 49 Medical Branch vitamin B-6 2020-0 Yes 100mg Take 100 U nivers (VITAMIN 9- mg by ity of B-6) 100 mg 19:20: mouth [place] tablet 49 daily. Medical Branch CALCIUM 2020-0 Yes Take by Univers CARBONATE/V 06-09 mouth. ity of ITAMIN D3 19:20: [place] (VITAMIN 49 Medical D-3 ORAL) Branch alcaftadine 2020-[address] [facility] [place] (LASTACAFT) 06-09 each eye. ity of 0.25 % Drop 19:20: [place] 49 Medical Branch CALCIUM 2020-0 Yes Take by [facility] CARBONATE/V 06-09 mouth. ity of ITAMIN D3 19:20: [place] (VITAMIN 49 Medical D-3 ORAL) Branch alcaftadine 2020-[address] [facility] [place] (LASTACAFT) 06-09 each eye. ity of 0.25 % Drop 19:20: [place] 49 Medical Branch CALCIUM 2020-0 Yes Take by [facility] CARBONATE/V 06-09 mouth. ity of ITAMIN D3 19:20: [place] (VITAMIN 49 Medical D-3 ORAL) Branch alcaftadine 2020-[address] [facility] [place] (LASTACAFT) 06-09 each eye. ity of 0.25 % Drop 19:20: [place] 49 Medical Branch CALCIUM 2020-0 Yes Take by [facility] CARBONATE/V 06-09 mouth. ity of ITAMIN D3 19:20: [place] (VITAMIN 49 Medical D-3 ORAL) Branch alcaftadine 2020-[address] [facility] [place] (LASTACAFT) 06-09 each eye. ity of 0.25 % Drop 19:20: [place] 49 Medical Branch CALCIUM 2020-0 Yes Take by [facility] CARBONATE/V 06-09 mouth. ity of ITAMIN D3 19:20: [place] (VITAMIN 49 Medical D-3 ORAL) Branch alcaftadine 2020-[address] [facility] [place] (LASTACAFT) 9 each eye. ity of 0.25 % Drop 19:20: [place] 49 Medical Branch CALCIUM 2020-0 Yes Take by [facility] CARBONATE/V 9-23 mouth. ity of ITAMIN D3 19:20: [place] (VITAMIN 49 Medical D-3 ORAL) Branch alcaftadine 2020-[address] [facility] [place] (LASTACAFT) 9- each eye. ity of 0.25 % Drop 19:20: [place] [address] Medical Branch CALCIUM 2020-0 Yes Take by [facility] CARBONATE/V 9-23 mouth. ity of ITAMIN D3 19:20: [place] (VITAMIN 49 Medical D-3 ORAL) Branch alcaftadine 2020-[address] [facility] [place] (LASTACAFT) 9- each eye. ity of 0.25 % Drop 19:20: [place] [address] Medical Branch CALCIUM 2020-0 Yes Take by [facility] CARBONATE/V 9-23 mouth. ity of ITAMIN D3 19:20: [place] (VITAMIN 49 Medical D-3 ORAL) Branch alcaftadine 2020-[address] [facility] [place] (LASTACAFT) 9- each eye. ity of 0.25 % Drop 19:20: [place] [address] Medical Branch CALCIUM 2020-0 Yes Take by [facility] CARBONATE/V 9-23 mouth. ity of ITAMIN D3 19:20: [place] (VITAMIN 49 Medical D-3 ORAL) Branch metoprolol 2020-0 Yes [id number] 25mg Take 1 U nivers succinate 9-23 tablet by ity o f XL 25 mg 24 00:00: mouth at [place] tablet 00 bedtime. Medica l Branch metoprolol 2020-0 Yes [id number] 25mg Take 1 U nivers succinate 9-23 tablet by ity o f XL 25 mg 24 00:00: mouth at [place] tablet 00 bedtime. Medica l Branch metoprolol 2020-0 Yes [id number] 25mg Take 1 U nivers succinate 9-23 tablet by ity o f XL 25 mg 24 00:00: mouth [place] tablet 00 bedtime. Medica l Branch metoprolol 2020-0 Yes [id number] 25mg Take 1 U nivers succinate 9-23 tablet by ity o f XL 25 mg 24 00:00: mouth [place] tablet 00 bedtime. Medica l Branch metoprolol 2020-0 Yes [id number] 25mg Take 1 U nivers succinate 9-23 tablet by ity o f XL 25 mg 24 00:00: mouth [place] tablet 00 bedtime. Medica l Branch metoprolol 2020-0 Yes [id number] 25mg Take 1 U nivers succinate 9-23 tablet by ity o f XL 25 mg 24 00:00: mouth [place] tablet 00 bedtime. Medica l Branch metoprolol 2020-0 Yes [id number] 25mg Take 1 U nivers succinate 9-23 tablet by ity o f XL 25 mg 24 00:00: mouth [place] hr tablet 00 bedtime. Medica l Branch metoprolol 2019-0 2020- No [id number] 25mg Take 1 [facility] succinate 9-23 10-05 tablet by ity of XL 25 mg 24 00:00: 00:00 mouth at [place] hr tablet 00 :00 bedtime. Medica l Branch metoprolol 2019-0 2020- No [id number] 25mg Take 1 [facility] succinate 9-23 10-05 tablet by ity of XL 25 mg 24 00:00: 00:00 mouth at [place] hr tablet 00 :00 bedtime. Medica l Branch LOSARTAN 25 2019-0 Yes [id number] TAKE 1 [facility] mg tablet 9-22 TABLET BY ity o f 00:00: MOUTH [place] 00 EVERY DAY Medical Branch LOSARTAN 25 2020-0 2020- No [id number] TAKE 1 [facility] mg tablet 9-22 -23 TABLET BY ity of 00:00: 00:00 MOUTH [place] 00 :00 EVERY DAY Medical Branch losartan 25 2020-0 Yes [id number] 25mg Take 1 [facility] mg tablet 9-21 tablet by ity o f 00:00: mouth [place] 00 daily. Medical Branch traZODone 2020-0 Yes [id number] 100mg Take 1 [facility] 100 mg 9-21 tablet by ity of tablet 00:00: mouth at [place] 00 bedtime as Medical needed for Branch Insomnia. losartan 25 2020-0 Yes [id number] 25mg Take 1 [facility] mg tablet 9-21 tablet by ity o f 00:00: mouth [place] 00 daily. Medical Branch traZODone 2020-0 Yes [id number] 100mg Take 1 [facility] 100 mg 9-21 tablet by ity of tablet 00:00: mouth at [place] 00 bedtime as Medical needed for Branch Insomnia. traZODone 2020-0 Yes [id number] 100mg Take 1 [facility] 100 mg 9-21 tablet by ity of tablet 00:00: mouth at [place] 00 bedtime as Medical needed for Branch Insomnia. traZODone 2020-0 Yes [id number] 100mg Take 1 [facility] 100 mg 9-21 tablet by ity of tablet 00:00: mouth at [place] 00 bedtime as Medical needed for Branch Insomnia. traZODone 2020-0 Yes [id number] 100mg Take 1 [facility] 100 mg 9-21 tablet by ity of tablet 00:00: mouth at [place] 00 bedtime as Medical needed for Branch Insomnia. traZODone 2020-0 Yes [id number] 100mg Take 1 [facility] 100 mg 9-21 tablet by ity of tablet 00:00: mouth at [place] 00 bedtime as Medical needed for Branch Insomnia. traZODone 2020-0 Yes [id number] 100mg Take 1 [facility] 100 mg 9-21 tablet by ity of tablet 00:00: mouth at [place] 00 bedtime as Medical needed for Branch Insomnia. traZODone 2020-0 Yes [id number] 100mg Take 1 [facility] 100 mg 9-21 tablet by ity of tablet 00:00: mouth at [place] 00 bedtime as Medical needed for Branch Insomnia. traZODone 2020-0 Yes [id number] 100mg Take 1 [facility] 100 mg 9-21 tablet by ity of tablet 00:00: mouth at [place] [address] bedtime as Medical needed for Branch Insomnia. traZODone 2020-0 Yes [id number] 100mg Take 1 [facility] 100 mg 9-21 tablet by ity of tablet 00:00: mouth at [place] [address] bedtime as Medical needed for Branch Insomnia. traZODone 2020-0 Yes [id number] 100mg Take 1 [facility] 100 mg 9-21 tablet by ity of tablet 00:00: mouth at [place] 00 bedtime as Medical needed for Branch Insomnia. traZODone 2020-0 Yes [id number] 100mg Take 1 [facility] 100 mg 9-21 tablet by ity of tablet 00:00: mouth at [place] 00 bedtime as Medical needed for Branch Insomnia. traZODone 2020-0 Yes [id number] 100mg Take 1 [facility] 100 mg 9-21 tablet by ity of tablet 00:00: mouth at [place] 00 bedtime as Medical needed for Branch Insomnia. traZODone 2020-0 Yes [id number] 100mg Take 1 [facility] 100 mg 9-21 tablet by ity of tablet 00:00: mouth at [place] 00 bedtime as Medical needed for Branch Insomnia. traZODone 2020-0 Yes [id number] 100mg Take 1 [facility] 100 mg 9-21 tablet by ity of tablet 00:00: mouth at [place] 00 bedtime as Medical needed for Branch Insomnia. traZODone 2020-0 Yes [id number] 100mg Take 1 [facility] 100 mg 9-21 tablet by ity of tablet 00:00: mouth at [place] 00 bedtime as Medical needed for Branch Insomnia. traZODone 2020-0 Yes [id number] 100mg Take 1 [facility] 100 mg 9-21 tablet by ity of tablet 00:00: mouth at [place] 00 bedtime as Medical needed for Branch Insomnia. traZODone 2020-0 Yes [id number] 100mg Take 1 [facility] 100 mg 9-21 tablet by ity of tablet 00:00: mouth at [place] 00 bedtime as Medical needed for Branch Insomnia. traZODone 2020-0 Yes [id number] 100mg Take 1 [facility] 100 mg 9-21 tablet by ity of tablet 00:00: mouth at [place] 00 bedtime as Medical needed for Branch Insomnia. traZODone 2020-0 Yes [id number] 100mg Take 1 [facility] 100 mg 9-21 tablet by ity of tablet 00:00: mouth at [place] 00 bedtime as Medical needed for Branch Insomnia. traZODone 2020-0 Yes [id number] 100mg Take 1 [facility] 100 mg 9-21 tablet by ity of tablet 00:00: mouth at [place] [address] bedtime as Medical needed for Branch Insomnia. traZODone 2020-0 Yes [id number] 100mg Take 1 [facility] 100 mg 9-21 tablet by ity of tablet 00:00: mouth at [place] 00 bedtime as Medical needed for Branch Insomnia. traZODone 2020-0 Yes [id number] 100mg Take 1 [facility] 100 mg 9-21 tablet by ity of tablet 00:00: mouth at [place] 00 bedtime as Medical needed for Branch Insomnia. traZODone 2020-0 Yes [id number] 100mg Take 1 [facility] 100 mg 9-21 tablet by ity of tablet 00:00: mouth at [place] 00 bedtime as Medical needed for Branch Insomnia. traZODone 2020-0 Yes [id number] 100mg Take 1 [facility] 100 mg 9-21 tablet by ity of tablet 00:00: mouth at [place] 00 bedtime as Medical needed for Branch Insomnia. traZODone 2020-0 Yes [id number] 100mg Take 1 [facility] 100 mg 9-21 tablet by ity of tablet 00:00: mouth at [place] 00 bedtime as Medical needed for Branch Insomnia. traZODone 2020-0 Yes [id number] 100mg Take 1 [facility] 100 mg 9-21 tablet by ity of tablet 00:00: mouth at [place] 00 bedtime as Medical needed for Branch Insomnia. traZODone 2020-0 Yes [id number] 100mg Take 1 [facility] 100 mg 9-21 tablet by ity of tablet 00:00: mouth at [place] 00 bedtime as Medical needed for Branch Insomnia. traZODone 2020-0 Yes [id number] 100mg Take 1 [facility] 100 mg 9-21 tablet by ity of tablet 00:00: mouth at [place] 00 bedtime as Medical needed for Branch Insomnia. traZODone 2020-0 Yes [id number] 100mg Take 1 [facility] 100 mg 9-21 tablet by ity of tablet 00:00: mouth at [place] 00 bedtime as Medical needed for Branch Insomnia. traZODone 2020-0 Yes [id number] 100mg Take 1 [facility] 100 mg 9-21 tablet by ity of tablet 00:00: mouth at [place] 00 bedtime as Medical needed for Branch Insomnia. traZODone 2020-0 Yes [id number] 100mg Take 1 [facility] 100 mg 9-21 tablet by ity of tablet 00:00: mouth at [place] 00 bedtime as Medical needed for Branch Insomnia. traZODone 2020-0 Yes [id number] 100mg Take 1 [facility] 100 mg 9-21 tablet by ity of tablet 00:00: mouth at [place] 00 bedtime as Medical needed for Branch Insomnia. traZODone 2020-0 Yes [id number] 100mg Take 1 [facility] 100 mg 9-21 tablet by ity of tablet 00:00: mouth at [place] 00 bedtime as Medical needed for Branch Insomnia. traZODone 2020-0 Yes [id number] 100mg Take 1 [facility] 100 mg 9-21 tablet by ity of tablet 00:00: mouth at [place] 00 bedtime as Medical needed for Branch Insomnia. traZODone 2020-0 Yes [id number] 100mg Take 1 [facility] 100 mg 9-21 tablet by ity of tablet 00:00: mouth at [place] 00 bedtime as Medical needed for Branch Insomnia. traZODone 2020-0 Yes [id number] 100mg Take 1 [facility] 100 mg 9-21 tablet by ity of tablet 00:00: mouth at [place] 00 bedtime as Medical needed for Branch Insomnia. traZODone 2020-0 Yes [id number] 100mg Take 1 [facility] 100 mg 9-21 tablet by ity of tablet 00:00: mouth at [place] 00 bedtime as Medical needed for Branch Insomnia. traZODone 2020-0 Yes [id number] 100mg Take 1 [facility] 100 mg 9-21 tablet by ity of tablet 00:00: mouth at [place] 00 bedtime as Medical needed for Branch Insomnia. traZODone 2020-0 Yes [id number] 100mg Take 1 [facility] 100 mg 9-21 tablet by ity of tablet 00:00: mouth at [place] 00 bedtime as Medical needed for Branch Insomnia. traZODone 2020-0 Yes [id number] 100mg Take 1 [facility] 100 mg 9-21 tablet by ity of tablet 00:00: mouth at [place] 00 bedtime as Medical needed for Branch Insomnia. traZODone 2020-0 Yes [id number] 100mg Take 1 [facility] 100 mg 9-21 tablet by ity of tablet 00:00: mouth at [place] 00 bedtime as Medical needed for Branch Insomnia. traZODone 2020-0 Yes [id number] 100mg Take 1 [facility] 100 mg 9-21 tablet by ity of tablet 00:00: mouth at [place] 00 bedtime as Medical needed for Branch Insomnia. traZODone 2020-0 Yes [id number] 100mg Take 1 [facility] 100 mg 9-21 tablet by ity of tablet 00:00: mouth at [place] 00 bedtime as Medical needed for Branch Insomnia. traZODone 2020-0 Yes [id number] 100mg Take 1 [facility] 100 mg 9-21 tablet by ity of tablet 00:00: mouth at [place] 00 bedtime as Medical needed for Branch Insomnia. traZODone 2020-0 Yes [id number] 100mg Take 1 [facility] 100 mg 9-21 tablet by ity of tablet 00:00: mouth at [place] 00 bedtime as Medical needed for Branch Insomnia. traZODone 2020-0 Yes [id number] 100mg Take 1 [facility] 100 mg 9-21 tablet by ity of tablet 00:00: mouth at [place] 00 bedtime as Medical needed for Branch Insomnia. traZODone 2020-0 Yes [id number] 100mg Take 1 [facility] 100 mg 9-21 tablet by ity of tablet 00:00: mouth at [place] 00 bedtime as Medical needed for Branch Insomnia. traZODone 2020-0 Yes [id number] 100mg Take 1 [facility] 100 mg 9-21 tablet by ity of tablet 00:00: mouth at [place] 00 bedtime as Medical needed for Branch Insomnia. traZODone 2020-0 Yes [id number] 100mg Take 1 [facility] 100 mg 9-21 tablet by ity of tablet 00:00: mouth at [place] 00 bedtime as Medical needed for Branch Insomnia. traZODone 2020-0 Yes [id number] 100mg Take 1 [facility] 100 mg 9-21 tablet by ity of tablet 00:00: mouth at [place] 00 bedtime as Medical needed for Branch Insomnia. traZODone 2020-0 Yes [id number] 100mg Take 1 [facility] 100 mg 9-21 tablet by ity of tablet 00:00: mouth at [place] 00 bedtime as Medical needed for Branch Insomnia. traZODone 2020-0 Yes [id number] 100mg Take 1 [facility] 100 mg 9-21 tablet by ity of tablet 00:00: mouth at [place] [address] bedtime as Medical needed for Branch Insomnia. traZODone 2020-0 Yes [id number] 100mg Take 1 [facility] 100 mg 9-21 tablet by ity of tablet 00:00: mouth at [place] 00 bedtime as Medical needed for Branch Insomnia. traZODone 2020-0 Yes [id number] 100mg Take 1 [facility] 100 mg 9-21 tablet by ity of tablet 00:00: mouth at [place] 00 bedtime as Medical needed for Branch Insomnia. traZODone 2020-0 Yes [id number] 100mg Take 1 [facility] 100 mg 9-21 tablet by ity of tablet 00:00: mouth at [place] 00 bedtime as Medical needed for Branch Insomnia. traZODone 2020-0 Yes [id number] 100mg Take 1 [facility] 100 mg 9-21 tablet by ity of tablet 00:00: mouth at [place] 00 bedtime as Medical needed for Branch Insomnia. traZODone 2020-0 Yes [id number] 100mg Take 1 [facility] 100 mg 9-21 tablet by ity of tablet 00:00: mouth at [place] 00 bedtime as Medical needed for Branch Insomnia. traZODone 2020-0 Yes [id number] 100mg Take 1 [facility] 100 mg 9-21 tablet by ity of tablet 00:00: mouth at [place] 00 bedtime as Medical needed for Branch Insomnia. traZODone 2020-0 Yes [id number] 100mg Take 1 [facility] 100 mg 9-21 tablet by ity of tablet 00:00: mouth at [place] 00 bedtime as Medical needed for Branch Insomnia. traZODone 2020-0 Yes [id number] 100mg Take 1 [facility] 100 mg 9-21 tablet by ity of tablet 00:00: mouth at [place] 00 bedtime as Medical needed for Branch Insomnia. traZODone 2020-0 Yes [id number] 100mg Take 1 [facility] 100 mg 9-21 tablet by ity of tablet 00:00: mouth at [place] 00 bedtime as Medical needed for Branch Insomnia. traZODone 2020-0 Yes [id number] 100mg Take 1 [facility] 100 mg 9-21 tablet by ity of tablet 00:00: mouth at [place] 00 bedtime as Medical needed for Branch Insomnia. traZODone 2019-0 2020- No [id number] 100mg Take 1 [facility] 100 mg 9-21 -18 tablet by ity of tablet 00:00: 00:00 mouth at [place] 00 :00 bedtime as Medical needed for Branch Insomnia. losartan 25 2019-0 2020- No [id number] 25mg Take 1 [facility] mg tablet -07 [...] at 1530, BASIL RAMELTEON 8 2019-0 Yes [id number] 8mg TAKE 1 [facility] mg tablet 9-16 TABLET BY ity o f 00:00: MOUTH AT [place] 00 BEDTIME Medical NEEDED FOR Branch INSOMNIA. STOP TRAZODONE. RAMELTEON 8 2019-0 Yes [id number] 8mg TAKE 1 [facility] mg tablet 9-16 TABLET BY ity o f 00:00: MOUTH AT [place] 00 BEDTIME Medical NEEDED FOR Branch INSOMNIA. STOP TRAZODONE. RAMELTEON 8 2019-0 Yes [id number] 8mg TAKE 1 [facility] mg tablet 9-16 TABLET BY ity o f 00:00: MOUTH AT [place] 00 BEDTIME Medical NEEDED FOR Branch INSOMNIA. STOP TRAZODONE. RAMELTEON 8 2019-0 2020- No [id number] 8mg TAKE 1 [facility] mg tablet 9-16 - TABLET BY ity of 00:00: 00:00 MOUTH AT [place] 00 :00 BEDTIME Medical NEEDED FOR Branch INSOMNIA. STOP TRAZODONE. RAMELTEON 8 2019-0 2020- No [id number] 8mg TAKE 1 [facility] mg tablet 06-02- [...] as needed for Pain. TRIAMTERENE 2020-0 Yes [id number] TAKE 2 [facility] -HYDROCHLOR 9-08 TABLETS BY it y of OTHIAZID 00:00: MOUTH [place] 37.5-25 mg 00 EVERY DAY Medi kacey tablet Branch TRIAMTERENE 2020-0 Yes [id number] TAKE 2 [facility] -HYDROCHLOR 9-08 TABLETS BY it y of OTHIAZID 00:00: MOUTH [place] 37.5-25 mg 00 EVERY DAY Medi [place] tablet Branch TRIAMTERENE 2020-0 Yes [id number] TAKE 2 [facility] -HYDROCHLOR 9-08 TABLETS BY it y of OTHIAZID 00:00: MOUTH [place] 37.5-25 mg 00 EVERY DAY Medi [place] tablet Branch TRIAMTERENE 2020-0 Yes [id number] TAKE 2 [facility] -HYDROCHLOR 9-08 TABLETS BY it y of OTHIAZID 00:00: MOUTH [place] 37.5-25 mg 00 EVERY DAY Medi [place] tablet Branch TRIAMTERENE 2020-0 Yes [id number] TAKE 2 [facility] -HYDROCHLOR 9-08 TABLETS BY it y of OTHIAZID 00:00: MOUTH [place] 37.5-25 mg 00 EVERY DAY Medi [place] tablet Branch TRIAMTERENE 2020-0 Yes [id number] TAKE 2 [facility] -HYDROCHLOR 9-08 TABLETS BY it y of OTHIAZID 00:00: MOUTH [place] 37.5-25 mg 00 EVERY DAY Medi [place] tablet Branch TRIAMTERENE 2020-0 Yes [id number] TAKE 2 [facility] -HYDROCHLOR 9-08 TABLETS BY it y of OTHIAZID 00:00: MOUTH [place] 37.5-25 mg 00 EVERY DAY Medi [place] tablet Branch TRIAMTERENE 2020-0 Yes [id number] TAKE 2 [facility] -HYDROCHLOR 9-08 TABLETS BY it y of OTHIAZID 00:00: MOUTH [place] 37.5-25 mg 00 EVERY DAY Medi [place] tablet Branch TRIAMTERENE 2020-0 Yes [id number] TAKE 2 [facility] -HYDROCHLOR 9-08 TABLETS BY it y of OTHIAZID 00:00: MOUTH [place] 37.5-25 mg 00 EVERY DAY Medi [place] tablet Branch TRIAMTERENE 2020-0 Yes [id number] TAKE 2 [facility] -HYDROCHLOR 9-08 TABLETS BY it y of OTHIAZID 00:00: MOUTH [place] 37.5-25 mg 00 EVERY DAY Medi [place] tablet Branch TRIAMTERENE 2020-0 Yes [id number] TAKE 2 [facility] -HYDROCHLOR 9-08 TABLETS BY it y of OTHIAZID 00:00: MOUTH [place] 37.5-25 mg 00 EVERY DAY Medi [place] tablet Branch TRIAMTERENE 2020-0 Yes [id number] TAKE 2 [facility] -HYDROCHLOR 9-08 TABLETS BY it y of OTHIAZID 00:00: MOUTH [place] 37.5-25 mg 00 EVERY DAY Medi [place] tablet Branch TRIAMTERENE 2020-0 Yes [id number] TAKE 2 [facility] -HYDROCHLOR 9-08 TABLETS BY it y of OTHIAZID 00:00: MOUTH [place] 37.5-25 mg 00 EVERY DAY Medi [place] tablet Branch TRIAMTERENE 2020-0 Yes [id number] TAKE 2 [facility] -HYDROCHLOR 9-08 TABLETS BY it y of OTHIAZID 00:00: MOUTH [place] 37.5-25 mg 00 EVERY DAY Medi [place] tablet Branch TRIAMTERENE 2020-0 Yes [id number] TAKE 2 [facility] -HYDROCHLOR 9-08 TABLETS BY it y of OTHIAZID 00:00: MOUTH [place] 37.5-25 mg 00 EVERY DAY Medi [place] tablet Branch TRIAMTERENE 2020-0 Yes [id number] TAKE 2 [facility] -HYDROCHLOR 9-08 TABLETS BY it y of OTHIAZID 00:00: MOUTH [place] 37.5-25 mg 00 EVERY DAY Medi [place] tablet Branch TRIAMTERENE 2020-0 Yes [id number] TAKE 2 [facility] -HYDROCHLOR 9-08 TABLETS BY it y of OTHIAZID 00:00: MOUTH [place] 37.5-25 mg 00 EVERY DAY Medi [place] tablet Branch TRIAMTERENE 2020-0 Yes [id number] TAKE 2 [facility] -HYDROCHLOR 9-08 TABLETS BY it y of OTHIAZID 00:00: MOUTH [place] 37.5-25 mg 00 EVERY DAY Medi [place] tablet Branch TRIAMTERENE 2020-0 Yes [id number] TAKE 2 [facility] -HYDROCHLOR 9-08 TABLETS BY it y of OTHIAZID 00:00: MOUTH [place] 37.5-25 mg 00 EVERY DAY Medi [place] tablet Branch TRIAMTERENE 2020-0 Yes [id number] TAKE 2 [facility] -HYDROCHLOR 9-08 TABLETS BY it y of OTHIAZID 00:00: MOUTH [place] 37.5-25 mg 00 EVERY DAY Medi [place] tablet Branch TRIAMTERENE 2020-0 Yes [id number] TAKE 2 [facility] -HYDROCHLOR 9-08 TABLETS BY it y of OTHIAZID 00:00: MOUTH [place] 37.5-25 mg 00 EVERY DAY Medi [place] tablet Branch TRIAMTERENE 2020-0 Yes [id number] TAKE 2 [facility] -HYDROCHLOR 9-08 TABLETS BY it y of OTHIAZID 00:00: MOUTH [place] 37.5-25 mg 00 EVERY DAY Medi [place] tablet Branch TRIAMTERENE 2020-0 Yes [id number] TAKE 2 [facility] -HYDROCHLOR 9-08 TABLETS BY it y of OTHIAZID 00:00: MOUTH [place] 37.5-25 mg 00 EVERY DAY Medi [facility] tablet Branch TRIAMTERENE 2020-0 Yes [id number] TAKE 2 [facility] -HYDROCHLOR 9-08 TABLETS BY it y of OTHIAZID 00:00: MOUTH [place] 37.5-25 mg 00 EVERY DAY Medi [facility] tablet Branch TRIAMTERENE 2020-0 Yes [id number] TAKE 2 [facility] -HYDROCHLOR 9-08 TABLETS BY it y of OTHIAZID 00:00: MOUTH [place] 37.5-25 mg 00 EVERY DAY Medi [facility] tablet Branch TRIAMTERENE 2020-0 Yes [id number] TAKE 2 [facility] -HYDROCHLOR 9-08 TABLETS BY it y of OTHIAZID 00:00: MOUTH [place] 37.5-25 mg 00 EVERY DAY Medi [facility]acey tablet Branch TRIAMTERENE 2020-0 Yes [id number] TAKE 2 [facility] -HYDROCHLOR 9-08 TABLETS BY it y of OTHIAZID 00:00: MOUTH [place] 37.5-25 mg 00 EVERY DAY Medi [facility]acey tablet Branch TRIAMTERENE 2020-0 Yes [id number] TAKE 2 [facility] -HYDROCHLOR 9-08 TABLETS BY it y of OTHIAZID 00:00: MOUTH [place] 37.5-25 mg 00 EVERY DAY Medi [facility]acey tablet Branch TRIAMTERENE 2020-0 Yes [id number] TAKE 2 [facility] -HYDROCHLOR 9-08 TABLETS BY it y of OTHIAZID 00:00: MOUTH [place] 37.5-25 mg 00 EVERY DAY Medi [facility] tablet Branch TRIAMTERENE 2020-0 Yes [id number] TAKE 2 [facility] -HYDROCHLOR 9-08 TABLETS BY it y of OTHIAZID 00:00: MOUTH [place] 37.5-25 mg 00 EVERY DAY Medi kacey tablet Branch TRIAMTERENE 2020-0 Yes [id number] TAKE 2 [facility] -HYDROCHLOR 9-08 TABLETS BY it y of OTHIAZID 00:00: MOUTH [place] 37.5-25 mg 00 EVERY DAY Medi [facility] tablet Branch TRIAMTERENE 2020-0 Yes [id number] TAKE 2 [facility] -HYDROCHLOR 9-08 TABLETS BY it y of OTHIAZID 00:00: MOUTH [place] 37.5-25 mg 00 EVERY DAY Medi [facility] tablet Branch TRIAMTERENE 2020-0 Yes [id number] TAKE 2 [facility] -HYDROCHLOR 9-08 TABLETS BY it y of OTHIAZID 00:00: MOUTH [place] 37.5-25 mg 00 EVERY DAY Medi [facility] tablet Branch TRIAMTERENE 2020-0 Yes [id number] TAKE 2 [facility] -HYDROCHLOR 9-08 TABLETS BY it y of OTHIAZID 00:00: MOUTH [place] 37.5-25 mg 00 EVERY DAY Medi [facility] tablet Branch TRIAMTERENE 2020-0 2020- No [id number] TAKE 2 [facility] -HYDROCHLOR 9-08 12-07 TABLETS BY i ty of OTHIAZID 00:00: 00:00 MOUTH [place] 37.5-25 mg 00 :00 EVERY DAY Medi kacey tablet Branch TRIAMTERENE 2020-0 2020- No [id number] TAKE 2 [facility] -HYDROCHLOR 9-08 12-07 TABLETS BY i ty of OTHIAZID 00:00: 00:00 MOUTH [place] 37.5-25 mg 00 :00 EVERY DAY Medi kca[facility] tablet Branch Dexlansopra 2020-0 Yes [id number] 60mg Take 1 [facility] zole 8-24 capsule by ity of (DEXILANT) 00:00: mouth [place] 60 mg 00 daily. Medical capsule STOP Branch ESOMEPRAZO LE. ramelteon 8 2020-0 Yes [id number] 8mg Take 1 [facility] mg tablet 8-24 tablet by ity o f 00:00: mouth at [place] 00 bedtime as Medical needed for Branch Insomnia. STOP TRAZODONE. Dexlansopra 2020-0 Yes [id number] 60mg Take 1 [facility] zole 8-24 capsule by ity of (DEXILANT) 00:00: mouth [place] 60 mg 00 daily. Medical capsule STOP Branch ESOMEPRAZO LE. ramelteon 8 2020-0 Yes [id number] 8mg Take 1 [facility] mg tablet 8-24 tablet by ity o f 00:00: mouth at [place] 00 bedtime as Medical needed for Branch Insomnia. STOP TRAZODONE. Dexlansopra 2020-0 Yes [id number] 60mg Take 1 [facility] zole 8-24 capsule by ity of (DEXILANT) 00:00: mouth [place] 60 mg 00 daily. Medical capsule STOP Branch ESOMEPRAZO LE. ramelteon 8 2019-0 Yes [id number] 8mg Take 1 [facility] mg tablet 8-24 tablet by ity o f 00:00: mouth at [place] 00 bedtime as Medical needed for Branch Insomnia. STOP TRAZODONE. Dexlansopra 2020-0 Yes [id number] 60mg Take 1 [facility] zole 8-24 capsule by ity of (DEXILANT) 00:00: mouth [place] 60 mg 00 daily. Medical capsule STOP Branch ESOMEPRAZO LE. ramelteon 8 2020-0 Yes [id number] 8mg Take 1 [facility] mg tablet 8-24 tablet by [facility] o f 00:00: mouth at [place] 00 bedtime as Medical needed for Branch Insomnia. STOP TRAZODONE. Dexlansopra 2020-0 Yes [id number] 60mg Take 1 [facility] zole 8-24 capsule by [facility] of (DEXILANT) 00:00: mouth [place] 60 mg 00 daily. Medical capsule STOP Branch ESOMEPRAZO LE. ramelteon 8 2020-0 Yes [id number] 8mg Take 1 [facility] mg tablet 8-24 tablet by [facility] o f 00:00: mouth at [place] 00 bedtime as Medical needed for Branch Insomnia. STOP TRAZODONE. Dexlansopra 2020-0 Yes [id number] 60mg Take 1 [facility] zole 8-24 capsule by [facility] of (DEXILANT) 00:00: mouth [place] 60 mg 00 daily. Medical capsule STOP Branch ESOMEPRAZO LE. Dexlansopra 2020-0 Yes [id number] 60mg Take 1 [facility] zole 8-24 capsule by [facility] of (DEXILANT) 00:00: mouth [place] 60 mg 00 daily. Medical capsule STOP Branch ESOMEPRAZO LE. Dexlansopra 2020-0 Yes [id number] 60mg Take 1 [facility] zole 8-24 capsule by [facility] of (DEXILANT) 00:00: mouth [place] 60 mg 00 daily. Medical capsule STOP Branch ESOMEPRAZO LE. Dexlansopra 2020-0 Yes [id number] 60mg Take 1 [facility] zole 8-24 capsule by [facility] of (DEXILANT) 00:00: mouth [place] 60 mg 00 daily. Medical capsule STOP Branch ESOMEPRAZO LE. Dexlansopra 2020-0 Yes [id number] 60mg Take 1 [facility] zole 8-24 capsule by [facility] of (DEXILANT) 00:00: mouth [place] 60 mg 00 daily. Medical capsule STOP Branch ESOMEPRAZO LE. Dexlansopra 2020-0 Yes [id number] 60mg Take 1 [facility] zole 8-24 capsule by [facility] of (DEXILANT) 00:00: mouth [place] 60 mg 00 daily. Medical capsule STOP Branch ESOMEPRAZO LE. Dexlansopra 2020-0 Yes [id number] 60mg Take 1 [facility] zole 8-24 capsule by [facility] of (DEXILANT) 00:00: mouth [place] 60 mg 00 daily. Medical capsule STOP Branch ESOMEPRAZO LE. Dexlansopra 2020-0 Yes [id number] 60mg Take 1 [facility] zole 8-24 capsule by [facility] of (DEXILANT) 00:00: mouth [place] 60 mg 00 daily. Medical capsule STOP Branch ESOMEPRAZO LE. Dexlansopra 2020-0 Yes [id number] 60mg Take 1 [facility] zole 8-24 capsule by [facility] of (DEXILANT) 00:00: mouth [place] 60 mg 00 daily. Medical capsule STOP Branch ESOMEPRAZO LE. Dexlansopra 2020-0 Yes [id number] 60mg Take 1 [facility] zole 8-24 capsule by [facility] of (DEXILANT) 00:00: mouth [place] 60 mg 00 daily. Medical capsule STOP Branch ESOMEPRAZO LE. Dexlansopra 2020-0 Yes [id number] 60mg Take 1 [facility] zole 8-24 capsule by [facility] of (DEXILANT) 00:00: mouth [place] 60 mg 00 daily. Medical capsule STOP Branch ESOMEPRAZO LE. Dexlansopra 2020-0 Yes [id number] 60mg Take 1 [facility] zole 8-24 capsule by [facility] of (DEXILANT) 00:00: mouth [place] 60 mg 00 daily. Medical capsule STOP Branch ESOMEPRAZO LE. Dexlansopra 2020-0 Yes [id number] 60mg Take 1 [facility] zole 8-24 capsule by [facility] of (DEXILANT) 00:00: mouth [place] 60 mg 00 daily. Medical capsule STOP Branch ESOMEPRAZO LE. Dexlansopra 2020-0 Yes [id number] 60mg Take 1 [facility] zole 8-24 capsule by [facility] of (DEXILANT) 00:00: mouth [place] 60 mg 00 daily. Medical capsule STOP Branch ESOMEPRAZO LE. Dexlansopra 2020-0 Yes [id number] 60mg Take 1 [facility] zole 8-24 capsule by [facility] of (DEXILANT) 00:00: mouth [place] 60 mg 00 daily. Medical capsule STOP Branch ESOMEPRAZO LE. Dexlansopra 2020-0 Yes [id number] 60mg Take 1 [facility] zole 8-24 capsule by [facility] of (DEXILANT) 00:00: mouth [place] 60 mg 00 daily. Medical capsule STOP Branch ESOMEPRAZO LE. Dexlansopra 2020-0 Yes [id number] 60mg Take 1 [facility] zole 8-24 capsule by [facility] of (DEXILANT) 00:00: mouth [place] 60 mg 00 daily. Medical capsule STOP Branch ESOMEPRAZO LE. Dexlansopra 2020-0 Yes [id number] 60mg Take 1 [facility] zole 8-24 capsule by [facility] of (DEXILANT) 00:00: mouth [place] 60 mg 00 daily. Medical capsule STOP Branch ESOMEPRAZO LE. Dexlansopra 2020-0 Yes [id number] 60mg Take 1 [facility] zole 8-24 capsule by [facility] of (DEXILANT) 00:00: mouth [place] 60 mg 00 daily. Medical capsule STOP Branch ESOMEPRAZO LE. Dexlansopra 2020-0 Yes [id number] 60mg Take 1 [facility] zole 8-24 capsule by [facility] of (DEXILANT) 00:00: mouth [place] 60 mg 00 daily. Medical capsule STOP Branch ESOMEPRAZO LE. Dexlansopra 2020-0 Yes [id number] 60mg Take 1 [facility] zole 8-24 capsule by [facility] of (DEXILANT) 00:00: mouth [place] 60 mg 00 daily. Medical capsule STOP Branch ESOMEPRAZO LE. Dexlansopra 2020-0 Yes [id number] 60mg Take 1 [facility] zole 8-24 capsule by [facility] of (DEXILANT) 00:00: mouth [place] 60 mg 00 daily. Medical capsule STOP Branch ESOMEPRAZO LE. Dexlansopra 2020-0 Yes [id number] 60mg Take 1 [facility] zole 8-24 capsule by [facility] of (DEXILANT) 00:00: mouth [place] 60 mg 00 daily. Medical capsule STOP Branch ESOMEPRAZO LE. Dexlansopra 2020-0 Yes [id number] 60mg Take 1 [facility] zole 8-24 capsule by [facility] of (DEXILANT) 00:00: mouth [place] 60 mg 00 daily. Medical capsule STOP Branch ESOMEPRAZO LE. Dexlansopra 2020-0 Yes [id number] 60mg Take 1 [facility] zole 8-24 capsule by [facility] of (DEXILANT) 00:00: mouth [place] 60 mg 00 daily. Medical capsule STOP Branch ESOMEPRAZO LE. Dexlansopra 2020-0 Yes [id number] 60mg Take 1 [facility] zole 8-24 capsule by [facility] of (DEXILANT) 00:00: mouth [place] 60 mg 00 daily. Medical capsule STOP Branch ESOMEPRAZO LE. Dexlansopra 2020-0 Yes [id number] 60mg Take 1 [facility] zole 8-24 capsule by [facility] of (DEXILANT) 00:00: mouth [place] 60 mg 00 daily. Medical capsule STOP Branch ESOMEPRAZO LE. Dexlansopra 2020-0 Yes [id number] 60mg Take 1 [facility] zole 8-24 capsule by [facility] of (DEXILANT) 00:00: mouth [place] 60 mg 00 daily. Medical capsule STOP Branch ESOMEPRAZO LE. Dexlansopra 2020-0 Yes [id number] 60mg Take 1 [facility] zole 8-24 capsule by [facility] of (DEXILANT) 00:00: mouth [place] 60 mg 00 daily. Medical capsule STOP Branch ESOMEPRAZO LE. Dexlansopra 2020-0 Yes [id number] 60mg Take 1 [facility] zole 8-24 capsule by [facility] of (DEXILANT) 00:00: mouth [place] 60 mg 00 daily. Medical capsule STOP Branch ESOMEPRAZO LE. Dexlansopra 2020-0 Yes [id number] 60mg Take 1 [facility] zole 8-24 capsule by [facility] of (DEXILANT) 00:00: mouth [place] 60 mg 00 daily. Medical capsule STOP Branch ESOMEPRAZO LE. Dexlansopra 2020-0 Yes [id number] 60mg Take 1 [facility] zole 8-24 capsule by [facility] of (DEXILANT) 00:00: mouth [place] 60 mg 00 daily. Medical capsule STOP Branch ESOMEPRAZO LE. Dexlansopra 2020-0 Yes [id number] 60mg Take 1 [facility] zole 8-24 capsule by [facility] of (DEXILANT) 00:00: mouth [place] 60 mg 00 daily. Medical capsule STOP Branch ESOMEPRAZO LE. Dexlansopra 2020-0 Yes [id number] 60mg Take 1 [facility] zole 8-24 capsule by [facility] of (DEXILANT) 00:00: mouth [place] 60 mg 00 daily. Medical capsule STOP Branch ESOMEPRAZO LE. Dexlansopra 2020-0 Yes [id number] 60mg Take 1 [facility] zole 8-24 capsule by [facility] of (DEXILANT) 00:00: mouth [place] 60 mg 00 daily. Medical capsule STOP Branch ESOMEPRAZO LE. Dexlansopra 2020-0 Yes [id number] 60mg Take 1 [facility] zole 8-24 capsule by [facility] of (DEXILANT) 00:00: mouth [place] 60 mg 00 daily. Medical capsule STOP Branch ESOMEPRAZO LE. Dexlansopra 2020-0 Yes [id number] 60mg Take 1 [facility] zole 8-24 capsule by [facility] of (DEXILANT) 00:00: mouth [place] 60 mg 00 daily. Medical capsule STOP Branch ESOMEPRAZO LE. Dexlansopra 2020-0 Yes [id number] 60mg Take 1 [facility] zole 8-24 capsule by [facility] of (DEXILANT) 00:00: mouth [place] 60 mg 00 daily. Medical capsule STOP Branch ESOMEPRAZO LE. Dexlansopra 2020-0 Yes [id number] 60mg Take 1 [facility] zole 8-24 capsule by [facility] of (DEXILANT) 00:00: mouth [place] 60 mg 00 daily. Medical capsule STOP Branch ESOMEPRAZO LE. Dexlansopra 2020-0 Yes [id number] 60mg Take 1 [facility] zole 8-24 capsule by [facility] of (DEXILANT) 00:00: mouth [place] 60 mg 00 daily. Medical capsule STOP Branch ESOMEPRAZO LE. Dexlansopra 2020-0 Yes [id number] 60mg Take 1 [facility] zole 8-24 capsule by [facility] of (DEXILANT) 00:00: mouth [place] 60 mg 00 daily. Medical capsule STOP Branch ESOMEPRAZO LE. Dexlansopra 2020-0 Yes [id number] 60mg Take 1 [facility] zole 8-24 capsule by [facility] of (DEXILANT) 00:00: mouth [place] 60 mg 00 daily. Medical capsule STOP Branch ESOMEPRAZO LE. Dexlansopra 2020-0 Yes [id number] 60mg Take 1 [facility] zole 8-24 capsule by [facility] of (DEXILANT) 00:00: mouth [place] 60 mg 00 daily. Medical capsule STOP Branch ESOMEPRAZO LE. Dexlansopra 2020-0 Yes [id number] 60mg Take 1 [facility] zole 8-24 capsule by [facility] of (DEXILANT) 00:00: mouth [place] 60 mg 00 daily. Medical capsule STOP Branch ESOMEPRAZO LE. Dexlansopra 2020-0 Yes [id number] 60mg Take 1 [facility] zole 8-24 capsule by [facility] of (DEXILANT) 00:00: mouth [place] 60 mg 00 daily. Medical capsule STOP Branch ESOMEPRAZO LE. Dexlansopra 2020-0 Yes [id number] 60mg Take 1 [facility] zole 8-24 capsule by [facility] of (DEXILANT) 00:00: mouth [place] 60 mg 00 daily. Medical capsule STOP Branch ESOMEPRAZO LE. Dexlansopra 2020-0 Yes [id number] 60mg Take 1 [facility] zole 8-24 capsule by [facility] of (DEXILANT) 00:00: mouth [place] 60 mg 00 daily. Medical capsule STOP Branch ESOMEPRAZO LE. Dexlansopra 2020-0 2020- No [id number] 60mg Take 1 [facility] zole 8-24 12-22 capsule by [facility] of (DEXILANT) 00:00: 00:00 mouth [place] 60 mg 00 :00 daily. Medical capsule STOP Branch ESOMEPRAZO LE. ramelteon 8 2019-0 2020- No [id number] 8mg Take 1 [facility] mg tablet 8-24 09-16 tablet by [facility] of 00:00: 00:00 mouth at [place] 00 :00 bedtime as Medical needed for Branch Insomnia. STOP TRAZODONE. IBANDRONATE 2020-0 Yes [id number] 150mg TAKE 1 [facility] 150 mg 7-31 TABLET BY [facility] of tablet 00:00: MOUTH ONCE [place] 00 EVERY Medical MONTH. Branch IBANDRONATE 2020-0 Yes [id number] 150mg TAKE 1 [facility] 150 mg 7-31 TABLET BY [facility] of tablet 00:00: MOUTH ONCE [place] 00 EVERY Medical MONTH. Branch IBANDRONATE 2020-0 Yes [id number] 150mg TAKE 1 [facility] 150 mg 7-31 TABLET BY [facility] of tablet 00:00: MOUTH ONCE [place] 00 EVERY Medical MONTH. Branch IBANDRONATE 2020-0 Yes [id number] 150mg TAKE 1 [facility] 150 mg 7-31 TABLET BY [facility] of tablet 00:00: MOUTH ONCE [place] 00 EVERY Medical MONTH. Branch IBANDRONATE 2020-0 Yes [id number] 150mg TAKE 1 [facility] 150 mg 7-31 TABLET BY [facility] of tablet 00:00: MOUTH ONCE [place] 00 EVERY Medical MONTH. Branch IBANDRONATE 2020-0 Yes [id number] 150mg TAKE 1 [facility] 150 mg 7-31 TABLET BY [facility] of tablet 00:00: MOUTH ONCE [place] 00 EVERY Medical MONTH. Branch IBANDRONATE 2020-0 Yes [id number] 150mg TAKE 1 [facility] 150 mg 7-31 TABLET BY [facility] of tablet 00:00: MOUTH ONCE [place] 00 EVERY Medical MONTH. Branch IBANDRONATE 2020-0 Yes [id number] 150mg TAKE 1 [facility] 150 mg 7-31 TABLET BY [facility] of tablet 00:00: MOUTH ONCE [place] [id number] EVERY Medical MONTH. Branch IBANDRONATE 2020-0 Yes [id number] 150mg TAKE 1 [facility] 150 mg 7-31 TABLET BY [facility] of tablet 00:00: MOUTH ONCE [place] [address] EVERY Medical MONTH. Branch IBANDRONATE 2020-0 Yes [id number] 150mg TAKE 1 [facility] 150 mg 7-31 TABLET BY [facility] of tablet 00:00: MOUTH ONCE [place] 00 EVERY Medical MONTH. Branch IBANDRONATE 2020-0 Yes [id number] 150mg TAKE 1 [facility] 150 mg 7-31 TABLET BY [facility] of tablet 00:00: MOUTH ONCE [place] [address] EVERY Medical MONTH. Branch IBANDRONATE 2020-0 Yes [id number] 150mg TAKE 1 [facility] 150 mg 7-31 TABLET BY [facility] of tablet 00:00: MOUTH ONCE [place] 00 EVERY Medical MONTH. Branch IBANDRONATE 2020-0 Yes [id number] 150mg TAKE 1 [facility] 150 mg 7-31 TABLET BY [facility] of tablet 00:00: MOUTH ONCE [place] 00 EVERY Medical MONTH. Branch IBANDRONATE 2020-0 Yes [id number] 150mg TAKE 1 [facility] 150 mg 7-31 TABLET BY [facility] of tablet 00:00: MOUTH ONCE [place] 00 EVERY Medical MONTH. Branch IBANDRONATE 2020-0 Yes [id number] 150mg TAKE 1 [facility] 150 mg 7-31 TABLET BY [facility] of tablet 00:00: MOUTH ONCE [place] 00 EVERY Medical MONTH. Branch IBANDRONATE 2020-0 Yes [id number] 150mg TAKE 1 [facility] 150 mg 7-31 TABLET BY [facility] of tablet 00:00: MOUTH ONCE [place] 00 EVERY Medical MONTH. Branch IBANDRONATE 2020-0 Yes [id number] 150mg TAKE 1 [facility] 150 mg 7-31 TABLET BY [facility] of tablet 00:00: MOUTH ONCE [place] 00 EVERY Medical MONTH. Branch IBANDRONATE 2020-0 Yes [id number] 150mg TAKE 1 [facility] 150 mg 7-31 TABLET BY [facility] of tablet 00:00: MOUTH ONCE [place] 00 EVERY Medical MONTH. Branch IBANDRONATE 2020-0 Yes [id number] 150mg TAKE 1 [facility] 150 mg 7-31 TABLET BY [facility] of tablet 00:00: MOUTH ONCE [place] 00 EVERY Medical MONTH. Branch IBANDRONATE 2020-0 Yes [id number] 150mg TAKE 1 [facility] 150 mg 7-31 TABLET BY [facility] of tablet 00:00: MOUTH ONCE [place] 00 EVERY Medical MONTH. Branch IBANDRONATE 2020-0 Yes [id number] 150mg TAKE 1 [facility] 150 mg 7-31 TABLET BY [facility] of tablet 00:00: MOUTH ONCE [place] 00 EVERY Medical MONTH. Branch IBANDRONATE 2020-0 Yes [id number] 150mg TAKE 1 [facility] 150 mg 7-31 TABLET BY [facility] of tablet 00:00: MOUTH ONCE [place] 00 EVERY Medical MONTH. Branch IBANDRONATE 2020-0 Yes [id number] 150mg TAKE 1 [facility] 150 mg 7-31 TABLET BY [facility] of tablet 00:00: MOUTH ONCE [place] 00 EVERY Medical MONTH. Branch IBANDRONATE 2020-0 Yes [id number] 150mg TAKE 1 [facility] 150 mg 7-31 TABLET BY [facility] of tablet 00:00: MOUTH ONCE [place] 00 EVERY Medical MONTH. Branch IBANDRONATE 2020-0 Yes [id number] 150mg TAKE 1 [facility] 150 mg 7-31 TABLET BY [facility] of tablet 00:00: MOUTH ONCE [place] 00 EVERY Medical MONTH. Branch IBANDRONATE 2020-0 Yes [id number] 150mg TAKE 1 [facility] 150 mg 7-31 TABLET BY [facility] of tablet 00:00: MOUTH ONCE [place] 00 EVERY Medical MONTH. Branch IBANDRONATE 2020-0 Yes [id number] 150mg TAKE 1 [facility] 150 mg 7-31 TABLET BY [facility] of tablet 00:00: MOUTH ONCE [place] 00 EVERY Medical MONTH. Branch IBANDRONATE 2020-0 Yes [id number] 150mg TAKE 1 [facility] 150 mg 7-31 TABLET BY [facility] of tablet 00:00: MOUTH ONCE [place] 00 EVERY Medical MONTH. Branch IBANDRONATE 2020-0 Yes [id number] 150mg TAKE 1 [facility] 150 mg 7-31 TABLET BY [facility] of tablet 00:00: MOUTH ONCE [place] 00 EVERY Medical MONTH. Branch IBANDRONATE 2020-0 Yes [id number] 150mg TAKE 1 [facility] 150 mg 7-31 TABLET BY [facility] of tablet 00:00: MOUTH ONCE [place] 00 EVERY Medical MONTH. Branch IBANDRONATE 2020-0 Yes [id number] 150mg TAKE 1 [facility] 150 mg 7-31 TABLET BY [facility] of tablet 00:00: MOUTH ONCE [place] 00 EVERY Medical MONTH. Branch IBANDRONATE 2020-0 Yes [id number] 150mg TAKE 1 [facility] 150 mg 7-31 TABLET BY [facility] of tablet 00:00: MOUTH ONCE [place] 00 EVERY Medical MONTH. Branch IBANDRONATE 2020-0 Yes [id number] 150mg TAKE 1 [facility] 150 mg 7-31 TABLET BY [facility] of tablet 00:00: MOUTH ONCE [place] 00 EVERY Medical MONTH. Branch IBANDRONATE 2020-0 Yes [id number] 150mg TAKE 1 [facility] 150 mg 7-31 TABLET BY [facility] of tablet 00:00: MOUTH ONCE [place] 00 EVERY Medical MONTH. Branch IBANDRONATE 2020-0 Yes [id number] 150mg TAKE 1 [facility] 150 mg 7-31 TABLET BY [facility] of tablet 00:00: MOUTH ONCE [place] 00 EVERY Medical MONTH. Branch IBANDRONATE 2020-0 Yes [id number] 150mg TAKE 1 [facility] 150 mg 7-31 TABLET BY [facility] of tablet 00:00: MOUTH ONCE [place] 00 EVERY Medical MONTH. Branch IBANDRONATE 2020-0 Yes [id number] 150mg TAKE 1 [facility] 150 mg 7-31 TABLET BY [facility] of tablet 00:00: MOUTH ONCE [place] 00 EVERY Medical MONTH. Branch IBANDRONATE 2020-0 Yes [id number] 150mg TAKE 1 [facility] 150 mg 7-31 TABLET BY [facility] of tablet 00:00: MOUTH ONCE [place] 00 EVERY Medical MONTH. Branch IBANDRONATE 2020-0 Yes [id number] 150mg TAKE 1 [facility] 150 mg 7-31 TABLET BY [facility] of tablet 00:00: MOUTH ONCE [place] 00 EVERY Medical MONTH. Branch IBANDRONATE 2020-0 Yes [id number] 150mg TAKE 1 [facility] 150 mg 7-31 TABLET BY [facility] of tablet 00:00: MOUTH ONCE [place] 00 EVERY Medical MONTH. Branch IBANDRONATE 2020-0 Yes [id number] 150mg TAKE 1 [facility] 150 mg 7-31 TABLET BY [facility] of tablet 00:00: MOUTH ONCE [place] 00 EVERY Medical MONTH. Branch IBANDRONATE 2020-0 Yes [id number] 150mg TAKE 1 [facility] 150 mg 7-31 TABLET BY [facility] of tablet 00:00: MOUTH ONCE [place] 00 EVERY Medical MONTH. Branch IBANDRONATE 2020-0 Yes [id number] 150mg TAKE 1 [facility] 150 mg 7-31 TABLET BY [facility] of tablet 00:00: MOUTH ONCE [place] 00 EVERY Medical MONTH. Branch IBANDRONATE 2020-0 Yes [id number] 150mg TAKE 1 [facility] 150 mg 7-31 TABLET BY [facility] of tablet 00:00: MOUTH ONCE [place] 00 EVERY Medical MONTH. Branch IBANDRONATE 2020-0 Yes [id number] 150mg TAKE 1 [facility] 150 mg 7-31 TABLET BY [facility] of tablet 00:00: MOUTH ONCE [place] 00 EVERY Medical MONTH. Branch IBANDRONATE 2020-0 Yes [id number] 150mg TAKE 1 [facility] 150 mg 7-31 TABLET BY [facility] of tablet 00:00: MOUTH ONCE [place] 00 EVERY Medical MONTH. Branch IBANDRONATE 2020-0 Yes [id number] 150mg TAKE 1 [facility] 150 mg 7-31 TABLET BY [facility] of tablet 00:00: MOUTH ONCE [place] 00 EVERY Medical MONTH. Branch IBANDRONATE 2020-0 Yes [id number] 150mg TAKE 1 [facility] 150 mg 7-31 TABLET BY [facility] of tablet 00:00: MOUTH ONCE [place] 00 EVERY Medical MONTH. Branch IBANDRONATE 2020-0 Yes [id number] 150mg TAKE 1 [facility] 150 mg 7-31 TABLET BY [facility] of tablet 00:00: MOUTH ONCE [place] 00 EVERY Medical MONTH. Branch IBANDRONATE 2020-0 Yes [id number] 150mg TAKE 1 [facility] 150 mg 7-31 TABLET BY [facility] of tablet 00:00: MOUTH ONCE [place] 00 EVERY Medical MONTH. Branch IBANDRONATE 2020-0 Yes [id number] 150mg TAKE 1 [facility] 150 mg 7-31 TABLET BY [facility] of tablet 00:00: MOUTH ONCE [place] 00 EVERY Medical MONTH. Branch IBANDRONATE 2020-0 Yes [id number] 150mg TAKE 1 [facility] 150 mg 7-31 TABLET BY [facility] of tablet 00:00: MOUTH ONCE [place] 00 EVERY Medical MONTH. Branch IBANDRONATE 2020-0 Yes [id number] 150mg TAKE 1 [facility] 150 mg 7-31 TABLET BY [facility] of tablet 00:00: MOUTH ONCE [place] 00 EVERY Medical MONTH. Branch IBANDRONATE 2020-0 Yes [id number] 150mg TAKE 1 [facility] 150 mg 7-31 TABLET BY [facility] of tablet 00:00: MOUTH ONCE [place] 00 EVERY Medical MONTH. Branch IBANDRONATE 2020-0 Yes [id number] 150mg TAKE 1 [facility] 150 mg 7-31 TABLET BY [facility] of tablet 00:00: MOUTH ONCE [place] 00 EVERY Medical MONTH. Branch IBANDRONATE 2020-0 Yes [id number] 150mg TAKE 1 [facility] 150 mg 7-31 TABLET BY [facility] of tablet 00:00: MOUTH ONCE [place] 00 EVERY Medical MONTH. Branch IBANDRONATE 2020-0 Yes [id number] 150mg TAKE 1 [facility] 150 mg 7-31 TABLET BY [facility] of tablet 00:00: MOUTH ONCE [place] 00 EVERY Medical MONTH. Branch IBANDRONATE 2020-0 Yes [id number] 150mg TAKE 1 [facility] 150 mg 7-31 TABLET BY [facility] of tablet 00:00: MOUTH ONCE [place] 00 EVERY Medical MONTH. Branch IBANDRONATE 2020-0 Yes [id number] 150mg TAKE 1 [facility] 150 mg 7-31 TABLET BY [facility] of tablet 00:00: MOUTH ONCE [place] 00 EVERY Medical MONTH. Branch IBANDRONATE 2020-0 Yes [id number] 150mg TAKE 1 [facility] 150 mg 7-31 TABLET BY [facility] of tablet 00:00: MOUTH ONCE [place] 00 EVERY Medical MONTH. Branch IBANDRONATE 2020-0 Yes [id number] 150mg TAKE 1 [facility] 150 mg 7-31 TABLET BY [facility] of tablet 00:00: MOUTH ONCE [place] 00 EVERY Medical MONTH. Branch IBANDRONATE 2020-0 Yes [id number] 150mg TAKE 1 [facility] 150 mg 7-31 TABLET BY [facility] of tablet 00:00: MOUTH ONCE [place] 00 EVERY Medical MONTH. Branch IBANDRONATE 2020-0 Yes [id number] 150mg TAKE 1 [facility] 150 mg 7-31 TABLET BY [facility] of tablet 00:00: MOUTH ONCE [place] 00 EVERY Medical MONTH. Branch IBANDRONATE 2020-0 Yes [id number] 150mg TAKE 1 [facility] 150 mg 7-31 TABLET BY [facility] of tablet 00:00: MOUTH ONCE [place] 00 EVERY Medical MONTH. Branch IBANDRONATE 2020-0 Yes [id number] 150mg TAKE 1 [facility] 150 mg 7-31 TABLET BY [facility] of tablet 00:00: MOUTH ONCE [place] 00 EVERY Medical MONTH. Branch IBANDRONATE 2020-0 Yes [id number] 150mg TAKE 1 [facility] 150 mg 7-31 TABLET BY [facility] of tablet 00:00: MOUTH ONCE [place] 00 EVERY Medical MONTH. Branch IBANDRONATE 2020-0 Yes [id number] 150mg TAKE 1 [facility] 150 mg 7-31 TABLET BY [facility] of tablet 00:00: MOUTH ONCE [place] 00 EVERY Medical MONTH. Branch IBANDRONATE 2020-0 Yes [id number] 150mg TAKE 1 [facility] 150 mg 7-31 TABLET BY [facility] of tablet 00:00: MOUTH ONCE [place] 00 EVERY Medical MONTH. Branch IBANDRONATE 2020-0 Yes [id number] 150mg TAKE 1 [facility] 150 mg 7-31 TABLET BY [facility] of tablet 00:00: MOUTH ONCE [place] 00 EVERY Medical MONTH. Branch IBANDRONATE 2020-0 Yes [id number] 150mg TAKE 1 [facility] 150 mg 7-31 TABLET BY [facility] of tablet 00:00: MOUTH ONCE [place] 00 EVERY Medical MONTH. Branch IBANDRONATE 2020-0 Yes [id number] 150mg TAKE 1 [facility] 150 mg 7-31 TABLET BY [facility] of tablet 00:00: MOUTH ONCE [place] 00 EVERY Medical MONTH. Branch IBANDRONATE 2020-0 Yes [id number] 150mg TAKE 1 [facility] 150 mg 7-31 TABLET BY [facility] of tablet 00:00: MOUTH ONCE [place] 00 EVERY Medical MONTH. Branch IBANDRONATE 2020-0 Yes [id number] 150mg TAKE 1 [facility] 150 mg 7-31 TABLET BY [facility] of tablet 00:00: MOUTH ONCE [place] 00 EVERY Medical MONTH. Branch IBANDRONATE 2020-0 Yes [id number] 150mg TAKE 1 [facility] 150 mg 7-31 TABLET BY [facility] of tablet 00:00: MOUTH ONCE [place] 00 EVERY Medical MONTH. Branch IBANDRONATE 2020-0 Yes [id number] 150mg TAKE 1 [facility] 150 mg 7-31 TABLET BY [facility] of tablet 00:00: MOUTH ONCE [place] 00 EVERY Medical MONTH. Branch IBANDRONATE 2020-0 Yes [id number] 150mg TAKE 1 [facility] 150 mg 7-31 TABLET BY [facility] of tablet 00:00: MOUTH ONCE [place] 00 EVERY Medical MONTH. Branch IBANDRONATE 2020-0 Yes [id number] 150mg TAKE 1 [facility] 150 mg 7-31 TABLET BY [facility] of tablet 00:00: MOUTH ONCE [place] 00 EVERY Medical MONTH. Branch IBANDRONATE 2020-0 Yes [id number] 150mg TAKE 1 [facility] 150 mg 7-31 TABLET BY [facility] of tablet 00:00: MOUTH ONCE [place] 00 EVERY Medical MONTH. Branch IBANDRONATE 2020-0 Yes [id number] 150mg TAKE 1 [facility] 150 mg 7-31 TABLET BY it[facility] of tablet 00:00: MOUTH ONCE [place] 00 EVERY Medical MONTH. Branch IBANDRONATE 2020-0 Yes [id number] 150mg TAKE 1 [facility] 150 mg 7-31 TABLET BY [facility] of tablet 00:00: MOUTH ONCE [place] 00 EVERY Medical MONTH. Branch IBANDRONATE 2020-0 Yes [id number] 150mg TAKE 1 [facility] 150 mg 7-31 TABLET BY [facility] of tablet 00:00: MOUTH ONCE [place] 00 EVERY Medical MONTH. Branch IBANDRONATE 2020-0 Yes [id number] 150mg TAKE 1 [facility] 150 mg 7-31 TABLET BY [facility] of tablet 00:00: MOUTH ONCE [place] 00 EVERY Medical MONTH. Branch IBANDRONATE 2020-0 Yes [id number] 150mg TAKE 1 [facility] 150 mg 7-31 TABLET BY [facility] of tablet 00:00: MOUTH ONCE [place] 00 EVERY Medical MONTH. Branch IBANDRONATE 2020-0 Yes [id number] 150mg TAKE 1 [facility] 150 mg 7-31 TABLET BY [facility] of tablet 00:00: MOUTH ONCE [place] 00 EVERY Medical MONTH. Branch IBANDRONATE 2020-0 Yes [id number] 150mg TAKE 1 [facility] 150 mg 7-31 TABLET BY [facility] of tablet 00:00: MOUTH ONCE [place] 00 EVERY Medical MONTH. Branch IBANDRONATE 2020-0 Yes [id number] 150mg TAKE 1 [facility] 150 mg 7-31 TABLET BY [facility] of tablet 00:00: MOUTH ONCE [place] 00 EVERY Medical MONTH. Branch IBANDRONATE 2020-0 Yes [id number] 150mg TAKE 1 [facility] 150 mg 7-31 TABLET BY [facility] of tablet 00:00: MOUTH ONCE [place] 00 EVERY Medical MONTH. Branch IBANDRONATE 2020-0 Yes [id number] 150mg TAKE 1 [facility] 150 mg 7-31 TABLET BY [facility] of tablet 00:00: MOUTH ONCE [place] 00 EVERY Medical MONTH. Branch IBANDRONATE 2020-0 Yes [id number] 150mg TAKE 1 [facility] 150 mg 7-31 TABLET BY [facility] of tablet 00:00: MOUTH ONCE [place] 00 EVERY Medical MONTH. Branch IBANDRONATE 2020-0 Yes [id number] 150mg TAKE 1 [facility] 150 mg 7-31 TABLET BY [facility] of tablet 00:00: MOUTH ONCE [place] 00 EVERY Medical MONTH. Branch IBANDRONATE 2020-0 Yes [id number] 150mg TAKE 1 [facility] 150 mg 7-31 TABLET BY [facility] of tablet 00:00: MOUTH ONCE [place] 00 EVERY Medical MONTH. Branch IBANDRONATE 2020-0 Yes [id number] 150mg TAKE 1 [facility] 150 mg 7-31 TABLET BY [facility] of tablet 00:00: MOUTH ONCE [place] 00 EVERY Medical MONTH. Branch IBANDRONATE 2020-0 Yes [id number] 150mg TAKE 1 [facility] 150 mg 7-31 TABLET BY [facility] of tablet 00:00: MOUTH ONCE [place] 00 EVERY Medical MONTH. Branch IBANDRONATE 2020-0 Yes [id number] 150mg TAKE 1 [facility] 150 mg 7-31 TABLET BY [facility] of tablet 00:00: MOUTH ONCE [place] 00 EVERY Medical MONTH. Branch IBANDRONATE 2020-0 Yes [id number] 150mg TAKE 1 [facility] 150 mg 7-31 TABLET BY [facility] of tablet 00:00: MOUTH ONCE [place] 00 EVERY Medical MONTH. Branch IBANDRONATE 2020-0 Yes [id number] 150mg TAKE 1 [facility] 150 mg 7-31 TABLET BY [facility] of tablet 00:00: MOUTH ONCE [place] 00 EVERY Medical MONTH. Branch IBANDRONATE 2020-0 Yes [id number] 150mg TAKE 1 [facility] 150 mg 7-31 TABLET BY [facility] of tablet 00:00: MOUTH ONCE [place] 00 EVERY Medical MONTH. Branch IBANDRONATE 2020-0 Yes [id number] 150mg TAKE 1 [facility] 150 mg 7-31 TABLET BY [facility] of tablet 00:00: MOUTH ONCE [place] 00 EVERY Medical MONTH. Branch ESOMEPRAZOL 2020-0 Yes [id number] TAKE 1 [facility] E 40 mg 7-28 CAPSULE BY [facility] of capsule 00:00: MOUTH [place] 00 DAILY WITH Medical BREAKFAST. [facility] BRAND MEDICALLY NECESSARY. ESOMEPRAZOL 2020-0 Yes [id number] TAKE 1 [facility] E 40 mg 7-28 CAPSULE BY ity of capsule 00:00: MOUTH [place] 00 DAILY WITH Medical BREAKFAST. Branch BRAND MEDICALLY NECESSARY. ESOMEPRAZOL 2020-0 2020- No [id number] TAKE 1 [facility] E 40 mg 7-28 08-24 CAPSULE BY ity o f capsule 00:00: 00:00 MOUTH [place] 00 :00 DAILY WITH Medical BREAKFAST. Branch BRAND MEDICALLY NECESSARY. ESOMEPRAZOL 2020-0 2020- No [id number] TAKE 1 [facility] E 40 mg 7-28 08-24 CAPSULE BY ity o f capsule 00:00: 00:00 MOUTH [place] 00 :00 DAILY WITH Medical BREAKFAST. Branch BRAND MEDICALLY NECESSARY. ESOMEPRAZOL 2020-0 2020- No [id number] TAKE 1 [facility] E 40 mg 7-28 08-24 CAPSULE BY ity o f capsule 00:00: 00:00 MOUTH [place] 00 :00 DAILY WITH Medical BREAKFAST. Branch BRAND MEDICALLY NECESSARY. TRIAMTERENE 2020-0 Yes [id number] TAKE 2 [facility] -HYDROCHLOR 6-03 TABLETS BY it y of OTHIAZID 00:00: MOUTH [place] 37.5-25 mg 00 DAILY. Medical tablet Branch TRIAMTERENE 2020-0 Yes [id number] TAKE 2 [facility] -HYDROCHLOR 6-03 TABLETS BY it y of OTHIAZID 00:00: MOUTH [place] 37.5-25 mg 00 DAILY. Medical tablet Branch TRIAMTERENE 2020-0 Yes [id number] TAKE 2 [facility] -HYDROCHLOR 6-03 TABLETS BY it y of OTHIAZID 00:00: MOUTH [place] 37.5-25 mg 00 DAILY. Medical tablet Branch TRIAMTERENE 2020-0 Yes [id number] TAKE 2 [facility] -HYDROCHLOR 6-03 TABLETS BY it y of OTHIAZID 00:00: MOUTH [place] 37.5-25 mg 00 DAILY. Medical tablet Branch TRIAMTERENE 2020-0 Yes [id number] TAKE 2 [facility] -HYDROCHLOR 6-03 TABLETS BY it y of OTHIAZID 00:00: MOUTH [place] 37.5-25 mg 00 DAILY. Medical tablet Branch TRIAMTERENE 2020-0 Yes [id number] TAKE 2 [facility] -HYDROCHLOR 6-03 TABLETS BY it y of OTHIAZID 00:00: MOUTH [place] 37.5-25 mg 00 DAILY. Medical tablet Branch TRIAMTERENE 2020-0 Yes [id number] TAKE 2 [facility] -HYDROCHLOR 6-03 TABLETS BY it y of OTHIAZID 00:00: MOUTH [place] 37.5-25 mg 00 DAILY. Medical tablet Branch TRIAMTERENE 2020-0 Yes [id number] TAKE 2 [facility] -HYDROCHLOR 6-03 TABLETS BY it y of OTHIAZID 00:00: MOUTH [place] 37.5-25 mg 00 DAILY. Medical tablet Branch TRIAMTERENE 2020-0 Yes [id number] TAKE 2 [facility] -HYDROCHLOR 6-03 TABLETS BY it y of OTHIAZID 00:00: MOUTH [place] 37.5-25 mg 00 DAILY. Medical tablet Branch TRIAMTERENE 2020-0 Yes [id number] TAKE 2 [facility] -HYDROCHLOR 6-03 TABLETS BY it y of OTHIAZID 00:00: MOUTH [place] 37.5-25 mg 00 DAILY. Medical tablet Branch TRIAMTERENE 2020-0 2020- No [id number] TAKE 2 [facility] -HYDROCHLOR 6-03 09-08 TABLETS BY i ty of OTHIAZID 00:00: 00:00 MOUTH [place] 37.5-25 mg 00 :00 DAILY. Medical tablet Branch TRIAMTERENE 2020-0 2020- No [id number] TAKE 2 [facility] -HYDROCHLOR 6-03 09-08 TABLETS BY i ty of OTHIAZID 00:00: 00:00 MOUTH [place] 37.5-25 mg 00 :00 DAILY. Medical tablet Branch TIZANIDINE 2020-0 Yes [id number] 4mg TAKE 1-2 [facility] 4 mg tablet 5-07 TABLETS BY it y of 00:00: MOUTH [place] 00 EVERY 8 Medical (EIGHT) Branch HOURS NEEDED (MUSCLE PAIN OR SPASM). TIZANIDINE 2020-0 Yes [id number] 4mg TAKE 1-2 [facility] 4 mg tablet 5-07 TABLETS BY it y of 00:00: MOUTH [place] 00 EVERY 8 Medical (EIGHT) Branch HOURS NEEDED (MUSCLE PAIN OR SPASM). TIZANIDINE 2020-0 Yes [id number] 4mg TAKE 1-2 [facility] 4 mg tablet 5-07 TABLETS BY it y of 00:00: MOUTH [place] 00 EVERY 8 Medical (EIGHT) Branch HOURS NEEDED (MUSCLE PAIN OR SPASM). TIZANIDINE 2020-0 Yes [id number] 4mg TAKE 1-2 [facility] 4 mg tablet 5-07 TABLETS BY it y of 00:00: MOUTH [place] 00 EVERY 8 Medical (EIGHT) Branch HOURS NEEDED (MUSCLE PAIN OR SPASM). TIZANIDINE 2020-0 Yes [id number] 4mg TAKE 1-2 [facility] 4 mg tablet 5-07 TABLETS BY it y of 00:00: MOUTH [place] 00 EVERY 8 Medical (EIGHT) Branch HOURS NEEDED (MUSCLE PAIN OR SPASM). TIZANIDINE 2020-0 Yes [id number] 4mg TAKE 1-2 [facility] 4 mg tablet 5-07 TABLETS BY it y of 00:00: MOUTH [place] 00 EVERY 8 Medical (EIGHT) Branch HOURS NEEDED (MUSCLE PAIN OR SPASM). TIZANIDINE 2020-0 Yes [id number] 4mg TAKE 1-2 [facility] 4 mg tablet 5-07 TABLETS BY it y of 00:00: MOUTH [place] 00 EVERY 8 Medical (EIGHT) Branch HOURS NEEDED (MUSCLE PAIN OR SPASM). TIZANIDINE 2020-0 Yes [id number] 4mg TAKE 1-2 [facility] 4 mg tablet 5-07 TABLETS BY it y of 00:00: MOUTH [place] 00 EVERY 8 Medical (EIGHT) Branch HOURS NEEDED (MUSCLE PAIN OR SPASM). TIZANIDINE 2020-0 Yes [id number] 4mg TAKE 1-2 [facility] 4 mg tablet 5-07 TABLETS BY it y of 00:00: MOUTH [place] 00 EVERY 8 Medical (EIGHT) Branch HOURS NEEDED (MUSCLE PAIN OR SPASM). TIZANIDINE 2020-0 Yes [id number] 4mg TAKE 1-2 [facility] 4 mg tablet 5-07 TABLETS BY it y of 00:00: MOUTH [place] 00 EVERY 8 Medical (EIGHT) Branch HOURS NEEDED (MUSCLE PAIN OR SPASM). TIZANIDINE 2020-0 Yes [id number] 4mg TAKE 1-2 [facility] 4 mg tablet 5-07 TABLETS BY it y of 00:00: MOUTH [place] 00 EVERY 8 Medical (EIGHT) Branch HOURS NEEDED (MUSCLE PAIN OR SPASM). TIZANIDINE 2020-0 Yes [id number] 4mg TAKE 1-2 [facility] 4 mg tablet 5-07 TABLETS BY it y of 00:00: MOUTH [place] 00 EVERY 8 Medical (EIGHT) Branch HOURS NEEDED (MUSCLE PAIN OR SPASM). TIZANIDINE 2020-0 Yes [id number] 4mg TAKE 1-2 [facility] 4 mg tablet 5-07 TABLETS BY it y of 00:00: MOUTH [place] 00 EVERY 8 Medical (EIGHT) Branch HOURS NEEDED (MUSCLE PAIN OR SPASM). TIZANIDINE 2020-0 Yes [id number] 4mg TAKE 1-2 [facility] 4 mg tablet 5-07 TABLETS BY it y of 00:00: MOUTH [place] 00 EVERY 8 Medical (EIGHT) Branch HOURS NEEDED (MUSCLE PAIN OR SPASM). TIZANIDINE 2020-0 Yes [id number] 4mg TAKE 1-2 [facility] 4 mg tablet 5-07 TABLETS BY it y of 00:00: MOUTH [place] 00 EVERY 8 Medical (EIGHT) Branch HOURS NEEDED (MUSCLE PAIN OR SPASM). TIZANIDINE 2020-0 Yes [id number] 4mg TAKE 1-2 [facility] 4 mg tablet 5-07 TABLETS BY it y of 00:00: MOUTH [place] 00 EVERY 8 Medical (EIGHT) Branch HOURS NEEDED (MUSCLE PAIN OR SPASM). TIZANIDINE 2020-0 Yes [id number] 4mg TAKE 1-2 [facility] 4 mg tablet 5-07 TABLETS BY it y of 00:00: MOUTH [place] 00 EVERY 8 Medical (EIGHT) Branch HOURS NEEDED (MUSCLE PAIN OR SPASM). TIZANIDINE 2020-0 Yes [id number] 4mg TAKE 1-2 [facility] 4 mg tablet 5-07 TABLETS BY it y of 00:00: MOUTH [place] 00 EVERY 8 Medical (EIGHT) Branch HOURS NEEDED (MUSCLE PAIN OR SPASM). TIZANIDINE 2020-0 Yes [id number] 4mg TAKE 1-2 [facility] 4 mg tablet 5-07 TABLETS BY it y of 00:00: MOUTH [place] 00 EVERY 8 Medical (EIGHT) Branch HOURS NEEDED (MUSCLE PAIN OR SPASM). TIZANIDINE 2020-0 Yes [id number] 4mg TAKE 1-2 [facility] 4 mg tablet 5-07 TABLETS BY it y of 00:00: MOUTH [place] 00 EVERY 8 Medical (EIGHT) Branch HOURS NEEDED (MUSCLE PAIN OR SPASM). TIZANIDINE 2020-0 Yes [id number] 4mg TAKE 1-2 [facility] 4 mg tablet 5-07 TABLETS BY it y of 00:00: MOUTH [place] 00 EVERY 8 Medical (EIGHT) Branch HOURS NEEDED (MUSCLE PAIN OR SPASM). TIZANIDINE 2020-0 Yes [id number] 4mg TAKE 1-2 [facility] 4 mg tablet 5-07 TABLETS BY it y of 00:00: MOUTH [place] 00 EVERY 8 Medical (EIGHT) Branch HOURS NEEDED (MUSCLE PAIN OR SPASM). TIZANIDINE 2020-0 Yes [id number] 4mg TAKE 1-2 [facility] 4 mg tablet 5-07 TABLETS BY it y of 00:00: MOUTH [place] 00 EVERY 8 Medical (EIGHT) Branch HOURS NEEDED (MUSCLE PAIN OR SPASM). TIZANIDINE 2020-0 Yes [id number] 4mg TAKE 1-2 [facility] 4 mg tablet 5-07 TABLETS BY it y of 00:00: MOUTH [place] 00 EVERY 8 Medical (EIGHT) Branch HOURS NEEDED (MUSCLE PAIN OR SPASM). TIZANIDINE 2020-0 Yes [id number] 4mg TAKE 1-2 [facility] 4 mg tablet 5-07 TABLETS BY it y of 00:00: MOUTH [place] 00 EVERY 8 Medical (EIGHT) Branch HOURS NEEDED (MUSCLE PAIN OR SPASM). TIZANIDINE 2020-0 Yes [id number] 4mg TAKE 1-2 [facility] 4 mg tablet 5-07 TABLETS BY it y of 00:00: MOUTH [place] 00 EVERY 8 Medical (EIGHT) Branch HOURS NEEDED (MUSCLE PAIN OR SPASM). TIZANIDINE 2020-0 Yes [id number] 4mg TAKE 1-2 [facility] 4 mg tablet 5-07 TABLETS BY it y of 00:00: MOUTH [place] 00 EVERY 8 Medical (EIGHT) Branch HOURS NEEDED (MUSCLE PAIN OR SPASM). TIZANIDINE 2020-0 Yes [id number] 4mg TAKE 1-2 [facility] 4 mg tablet 5-07 TABLETS BY it y of 00:00: MOUTH [place] 00 EVERY 8 Medical (EIGHT) Branch HOURS NEEDED (MUSCLE PAIN OR SPASM). TIZANIDINE 2020-0 Yes [id number] 4mg TAKE 1-2 [facility] 4 mg tablet 5-07 TABLETS BY it y of 00:00: MOUTH [place] 00 EVERY 8 Medical (EIGHT) Branch HOURS NEEDED (MUSCLE PAIN OR SPASM). TIZANIDINE 2020-0 Yes [id number] 4mg TAKE 1-2 [facility] 4 mg tablet 5-07 TABLETS BY it y of 00:00: MOUTH [place] 00 EVERY 8 Medical (EIGHT) Branch HOURS NEEDED (MUSCLE PAIN OR SPASM). TIZANIDINE 2020-0 Yes [id number] 4mg TAKE 1-2 [facility] 4 mg tablet 5-07 TABLETS BY it y of 00:00: MOUTH [place] 00 EVERY 8 Medical (EIGHT) Branch HOURS NEEDED (MUSCLE PAIN OR SPASM). TIZANIDINE 2020-0 Yes [id number] 4mg TAKE 1-2 [facility] 4 mg tablet 5-07 TABLETS BY it y of 00:00: MOUTH [place] 00 EVERY 8 Medical (EIGHT) Branch HOURS NEEDED (MUSCLE PAIN OR SPASM). TIZANIDINE 2020-0 Yes [id number] 4mg TAKE 1-2 [facility] 4 mg tablet 5-07 TABLETS BY it y of 00:00: MOUTH [place] 00 EVERY 8 Medical (EIGHT) Branch HOURS NEEDED (MUSCLE PAIN OR SPASM). TIZANIDINE 2020-0 Yes [id number] 4mg TAKE 1-2 [facility] 4 mg tablet 5-07 TABLETS BY it y of 00:00: MOUTH [place] 00 EVERY 8 Medical (EIGHT) Branch HOURS NEEDED (MUSCLE PAIN OR SPASM). TIZANIDINE 2020-0 Yes [id number] 4mg TAKE 1-2 [facility] 4 mg tablet 5-07 TABLETS BY it y of 00:00: MOUTH [place] 00 EVERY 8 Medical (EIGHT) Branch HOURS NEEDED (MUSCLE PAIN OR SPASM). TIZANIDINE 2020-0 Yes [id number] 4mg TAKE 1-2 [facility] 4 mg tablet 5-07 TABLETS BY it y of 00:00: MOUTH [place] 00 EVERY 8 Medical (EIGHT) Branch HOURS NEEDED (MUSCLE PAIN OR SPASM). TIZANIDINE 2020-0 Yes [id number] 4mg TAKE 1-2 [facility] 4 mg tablet 5-07 TABLETS BY it y of 00:00: MOUTH [place] 00 EVERY 8 Medical (EIGHT) Branch HOURS NEEDED (MUSCLE PAIN OR SPASM). TIZANIDINE 2020-0 Yes [id number] 4mg TAKE 1-2 [facility] 4 mg tablet 5-07 TABLETS BY it y of 00:00: MOUTH [place] 00 EVERY 8 Medical (EIGHT) Branch HOURS NEEDED (MUSCLE PAIN OR SPASM). TIZANIDINE 2020-0 Yes [id number] 4mg TAKE 1-2 [facility] 4 mg tablet 5-07 TABLETS BY it y of 00:00: MOUTH [place] 00 EVERY 8 Medical (EIGHT) Branch HOURS NEEDED (MUSCLE PAIN OR SPASM). TIZANIDINE 2020-0 Yes [id number] 4mg TAKE 1-2 [facility] 4 mg tablet 5-07 TABLETS BY it y of 00:00: MOUTH [place] 00 EVERY 8 Medical (EIGHT) Branch HOURS NEEDED (MUSCLE PAIN OR SPASM). TIZANIDINE 2020-0 Yes [id number] 4mg TAKE 1-2 [facility] 4 mg tablet 5-07 TABLETS BY it y of 00:00: MOUTH [place] 00 EVERY 8 Medical (EIGHT) Branch HOURS NEEDED (MUSCLE PAIN OR SPASM). TIZANIDINE 2020-0 Yes [id number] 4mg TAKE 1-2 [facility] 4 mg tablet 5-07 TABLETS BY it y of 00:00: MOUTH [place] 00 EVERY 8 Medical (EIGHT) Branch HOURS NEEDED (MUSCLE PAIN OR SPASM). TIZANIDINE 2020-0 Yes [id number] 4mg TAKE 1-2 [facility] 4 mg tablet 5-07 TABLETS BY it y of 00:00: MOUTH [place] 00 EVERY 8 Medical (EIGHT) Branch HOURS NEEDED (MUSCLE PAIN OR SPASM). TIZANIDINE 2020-0 Yes [id number] 4mg TAKE 1-2 [facility] 4 mg tablet 5-07 TABLETS BY it y of 00:00: MOUTH [place] 00 EVERY 8 Medical (EIGHT) Branch HOURS NEEDED (MUSCLE PAIN OR SPASM). TIZANIDINE 2020-0 Yes [id number] 4mg TAKE 1-2 [facility] 4 mg tablet 5-07 TABLETS BY it y of 00:00: MOUTH [place] 00 EVERY 8 Medical (EIGHT) Branch HOURS NEEDED (MUSCLE PAIN OR SPASM). TIZANIDINE 2020-0 Yes [id number] 4mg TAKE 1-2 [facility] 4 mg tablet 5-07 TABLETS BY it y of 00:00: MOUTH [place] 00 EVERY 8 Medical (EIGHT) Branch HOURS NEEDED (MUSCLE PAIN OR SPASM). TIZANIDINE 2020-0 Yes [id number] 4mg TAKE 1-2 [facility] 4 mg tablet 5-07 TABLETS BY it y of 00:00: MOUTH [place] 00 EVERY 8 Medical (EIGHT) Branch HOURS NEEDED (MUSCLE PAIN OR SPASM). TIZANIDINE 2020-0 2020- No [id number] 4mg TAKE 1-2 [facility] 4 mg tablet 5-07 12-07 TABLETS BY i ty of 00:00: 00:00 MOUTH [place] 00 :00 EVERY 8 Medical (EIGHT) Branch HOURS NEEDED (MUSCLE PAIN OR SPASM). TIZANIDINE 2020-0 2020- No [id number] 4mg TAKE 1-2 [facility] 4 mg tablet 5-07 12-07 TABLETS BY i ty of 00:00: 00:00 MOUTH [place] 00 :00 EVERY 8 Medical (EIGHT) Branch HOURS NEEDED (MUSCLE PAIN OR SPASM). levothyroxi 2020-0 Yes [id number] 50ug Take 1 [facility] ne 50 mcg 4-20 tablet by ity o f tablet 00:00: mouth [place] 00 every Medical morning. Branch levothyroxi 2020-0 Yes [id number] 50ug Take 1 [facility] ne 50 mcg 4-20 tablet by ity o f tablet 00:00: mouth [place] 00 every Medical morning. Branch levothyroxi 2020-0 Yes [id number] 50ug Take 1 [facility] ne 50 mcg 4-20 tablet by ity o f tablet 00:00: mouth [place] 00 every Medical morning. Branch levothyroxi 2020-0 Yes [id number] 50ug Take 1 [facility] ne 50 mcg 4-20 tablet by ity o f tablet 00:00: mouth [place] 00 every Medical morning. Branch levothyroxi 2020-0 Yes [id number] 50ug Take 1 [facility] ne 50 mcg 4-20 tablet by ity o f tablet 00:00: mouth [place] 00 every Medical morning. Branch levothyroxi 2020-0 Yes [id number] 50ug Take 1 [facility] ne 50 mcg 4-20 tablet by ity o f tablet 00:00: mouth [place] 00 every Medical morning. Branch levothyroxi 2020-0 Yes [id number] 50ug Take 1 [facility] ne 50 mcg 4-20 tablet by ity o f tablet 00:00: mouth [place] 00 every Medical morning. Branch levothyroxi 2020-0 Yes [id number] 50ug Take 1 [facility] ne 50 mcg 4-20 tablet by ity o f tablet 00:00: mouth [place] 00 every Medical morning. Branch levothyroxi 2020-0 Yes [id number] 50ug Take 1 [facility] ne 50 mcg 4-20 tablet by ity o f tablet 00:00: mouth [place] 00 every Medical morning. Branch levothyroxi 2020-0 Yes [id number] 50ug Take 1 [facility] ne 50 mcg 4-20 tablet by ity o f tablet 00:00: mouth [place] 00 every Medical morning. Branch levothyroxi 2020-0 Yes [id number] 50ug Take 1 [facility] ne 50 mcg 4-20 tablet by ity o f tablet 00:00: mouth [place] 00 every Medical morning. Branch levothyroxi 2020-0 Yes [id number] 50ug Take 1 [facility] ne 50 mcg 4-20 tablet by ity o f tablet 00:00: mouth [place] 00 every Medical morning. Branch levothyroxi 2020-0 Yes [id number] 50ug Take 1 [facility] ne 50 mcg 4-20 tablet by ity o f tablet 00:00: mouth [place] 00 every Medical morning. Branch levothyroxi 2020-0 Yes [id number] 50ug Take 1 [facility] ne 50 mcg 4-20 tablet by ity o f tablet 00:00: mouth [place] 00 every Medical morning. Branch levothyroxi 2020-0 Yes [id number] 50ug Take 1 [facility] ne 50 mcg 4-20 tablet by ity o f tablet 00:00: mouth [place] 00 every Medical morning. Branch levothyroxi 2020-0 Yes [id number] 50ug Take 1 [facility] ne 50 mcg 4-20 tablet by ity o f tablet 00:00: mouth [place] 00 every Medical morning. Branch levothyroxi 2020-0 Yes [id number] 50ug Take 1 [facility] ne 50 mcg 4-20 tablet by ity o f tablet 00:00: mouth [place] 00 every Medical morning. Branch levothyroxi 2020-0 Yes [id number] 50ug Take 1 [facility] ne 50 mcg 4-20 tablet by ity o f tablet 00:00: mouth [place] 00 every Medical morning. Branch levothyroxi 2020-0 Yes [id number] 50ug Take 1 [facility] ne 50 mcg 4-20 tablet by ity o f tablet 00:00: mouth [place] 00 every Medical morning. Branch levothyroxi 2020-0 Yes [id number] 50ug Take 1 [facility] ne 50 mcg 4-20 tablet by ity o f tablet 00:00: mouth [place] 00 every Medical morning. Branch levothyroxi 2020-0 Yes [id number] 50ug Take 1 [facility] ne 50 mcg 4-20 tablet by ity o f tablet 00:00: mouth [place] 00 every Medical morning. Branch levothyroxi 2020-0 Yes [id number] 50ug Take 1 [facility] ne 50 mcg 4-20 tablet by ity o f tablet 00:00: mouth [place] 00 every Medical morning. Branch levothyroxi 2020-0 Yes [id number] 50ug Take 1 [facility] ne 50 mcg 4-20 tablet by ity o f tablet 00:00: mouth [place] 00 every Medical morning. Branch levothyroxi 2020-0 Yes [id number] 50ug Take 1 [facility] ne 50 mcg 4-20 tablet by ity o f tablet 00:00: mouth [place] 00 every Medical morning. Branch levothyroxi 2020-0 Yes [id number] 50ug Take 1 [facility] ne 50 mcg 4-20 tablet by ity o f tablet 00:00: mouth [place] 00 every Medical morning. Branch levothyroxi 2020-0 Yes [id number] 50ug Take 1 [facility] ne 50 mcg 4-20 tablet by ity o f tablet 00:00: mouth [place] 00 every Medical morning. Branch levothyroxi 2020-0 Yes [id number] 50ug Take 1 [facility] ne 50 mcg 4-20 tablet by ity o f tablet 00:00: mouth [place] 00 every Medical morning. Branch levothyroxi 2020-0 Yes [id number] 50ug Take 1 [facility] ne 50 mcg 4-20 tablet by ity o f tablet 00:00: mouth [place] 00 every Medical morning. Branch levothyroxi 2020-0 Yes [id number] 50ug Take 1 [facility] ne 50 mcg 4-20 tablet by ity o f tablet 00:00: mouth [place] 00 every Medical morning. Branch levothyroxi 2020-0 Yes [id number] 50ug Take 1 [facility] ne 50 mcg 4-20 tablet by ity o f tablet 00:00: mouth [place] 00 every Medical morning. Branch levothyroxi 2020-0 Yes [id number] 50ug Take 1 [facility] ne 50 mcg 4-20 tablet by ity o f tablet 00:00: mouth [place] 00 every Medical morning. Branch levothyroxi 2020-0 Yes [id number] 50ug Take 1 [facility] ne 50 mcg 4-20 tablet by ity o f tablet 00:00: mouth [place] 00 every Medical morning. Branch levothyroxi 2020-0 Yes [id number] 50ug Take 1 [facility] ne 50 mcg 4-20 tablet by ity o f tablet 00:00: mouth [place] 00 every Medical morning. Branch levothyroxi 2020-0 Yes [id number] 50ug Take 1 [facility] ne 50 mcg 4-20 tablet by ity o f tablet 00:00: mouth [place] 00 every Medical morning. Branch levothyroxi 2020-0 Yes [id number] 50ug Take 1 [facility] ne 50 mcg 4-20 tablet by ity o f tablet 00:00: mouth [place] 00 every Medical morning. Branch levothyroxi 2020-0 Yes [id number] 50ug Take 1 [facility] ne 50 mcg 4-20 tablet by ity o f tablet 00:00: mouth [place] 00 every Medical morning. Branch levothyroxi 2020-0 Yes [id number] 50ug Take 1 [facility] ne 50 mcg 4-20 tablet by ity o f tablet 00:00: mouth [place] 00 every Medical morning. Branch levothyroxi 2020-0 Yes [id number] 50ug Take 1 [facility] ne 50 mcg 4-20 tablet by ity o f tablet 00:00: mouth [place] 00 every Medical morning. Branch levothyroxi 2020-0 Yes [id number] 50ug Take 1 [facility] ne 50 mcg 4-20 tablet by ity o f tablet 00:00: mouth [place] 00 every Medical morning. Branch levothyroxi 2020-0 Yes [id number] 50ug Take 1 [facility] ne 50 mcg 4-20 tablet by ity o f tablet 00:00: mouth [place] 00 every Medical morning. Branch levothyroxi 2020-0 Yes [id number] 50ug Take 1 [facility] ne 50 mcg 4-20 tablet by ity o f tablet 00:00: mouth [place] 00 every Medical morning. Branch levothyroxi 2020-0 Yes [id number] 50ug Take 1 [facility] ne 50 mcg 4-20 tablet by ity o f tablet 00:00: mouth [place] 00 every Medical morning. Branch levothyroxi 2020-0 2020- No [id number] 50ug Take 1 [facility] ne 50 mcg [...] mg 00:00: mouth [place] tablet 00 daily. [facility] STOP [place] ELIQUIS. Indication s: a clot in the lung rivaroxaban 2020-0 Yes [id number] 20mg Take 1 [facility] ers (XARELTO) 4-14 tablet by ity o f 20 mg 00:00: mouth [place] tablet 00 daily. [facility] STOP [place] ELIQUIS. Indication s: a clot in the lung rivaroxaban 2020-0 Yes [id number] 20mg Take 1 [facility] ers (XARELTO) 4-14 tablet by ity o f 20 mg 00:00: mouth [place] tablet 00 daily. [facility] STOP [place] ELIQUIS. Indication s: a clot in the lung rivaroxaban 2020-0 Yes [id number] 20mg Take 1 [facility] ers (XARELTO) 4-14 tablet by ity o f 20 mg 00:00: mouth [place] tablet 00 daily. [facility] STOP [place] ELIQUIS. Indication s: a clot in the lung rivaroxaban 2020-0 Yes [id number] 20mg Take 1 [facility] ers (XARELTO) 4-14 tablet by ity o f 20 mg 00:00: mouth [place] tablet 00 daily. [facility] STOP [place] ELIQUIS. Indication s: a clot in the [...] mg 00:00: mouth [place] tablet 00 daily. [facility] STOP [place] ELIQUIS. Indication s: a clot in the [...] clot in the lung TRAZODONE 2020-0 Yes [id number] 100mg TAKE 1 [facility] 100 mg 4-06 TABLET BY ity of tablet 00:00: MOUTH AT [place] 00 BEDTIME. Medical FOR Branch INSOMNIA. TRAZODONE 2020-0 Yes [id number] 100mg TAKE 1 [facility] 100 mg 4-06 TABLET BY ity of tablet 00:00: MOUTH AT [place] 00 BEDTIME. Medical FOR Branch INSOMNIA. TRAZODONE 2020-0 Yes [id number] 100mg TAKE 1 [facility] 100 mg 4-06 TABLET BY ity of tablet 00:00: MOUTH AT [place] 00 BEDTIME. Medical FOR Branch INSOMNIA. TRAZODONE 2020-0 Yes [id number] 100mg TAKE 1 [facility] 100 mg 4-06 TABLET BY ity of tablet 00:00: MOUTH AT [place] 00 BEDTIME. Medical FOR Branch INSOMNIA. TRAZODONE 2020-0 Yes [id number] 100mg TAKE 1 [facility] 100 mg 4-06 TABLET BY ity of tablet 00:00: MOUTH AT [place] 00 BEDTIME. Medical FOR Branch INSOMNIA. TRAZODONE 2020-0 Yes [id number] 100mg TAKE 1 [facility] 100 mg 4-06 TABLET BY ity of tablet 00:00: MOUTH AT [place] 00 BEDTIME. Medical FOR Branch INSOMNIA. TRAZODONE 2020-0 Yes [id number] 100mg TAKE 1 [facility] 100 mg 4-06 TABLET BY ity of tablet 00:00: MOUTH AT [place] 00 BEDTIME. Medical FOR Branch INSOMNIA. TRAZODONE 2020-0 Yes [id number] 100mg TAKE 1 [facility] 100 mg 4-06 TABLET BY ity of tablet 00:00: MOUTH AT [place] 00 BEDTIME. Medical FOR Branch INSOMNIA. TRAZODONE 2020-0 Yes [id number] 100mg TAKE 1 [facility] 100 mg 4-06 TABLET BY ity of tablet 00:00: MOUTH AT [place] [address] BEDTIME. Medical FOR Branch INSOMNIA. TRAZODONE 2020-0 Yes [id number] 100mg TAKE 1 [facility] 100 mg 4-06 TABLET BY ity of tablet 00:00: MOUTH AT [place] 00 BEDTIME. Medical FOR Branch INSOMNIA. TRAZODONE 2020-0 Yes [id number] 100mg TAKE 1 [facility] 100 mg 4-06 TABLET BY ity of tablet 00:00: MOUTH AT [place] [address] BEDTIME. Medical FOR Branch INSOMNIA. TRAZODONE 2020-0 Yes [id number] 100mg TAKE 1 [facility] 100 mg 4-06 TABLET BY ity of tablet 00:00: MOUTH AT [place] [address] BEDTIME. Medical FOR Branch INSOMNIA. TRAZODONE 2020-0 Yes [id number] 100mg TAKE 1 [facility] 100 mg 4-06 TABLET BY ity of tablet 00:00: MOUTH AT [place] [address] BEDTIME. Medical FOR Branch INSOMNIA. TRAZODONE 2020-0 Yes [id number] 100mg TAKE 1 [facility] 100 mg 4-06 TABLET BY ity of tablet 00:00: MOUTH AT [place] [address] BEDTIME. Medical FOR Branch INSOMNIA. TRAZODONE 2020-0 Yes [id number] 100mg TAKE 1 [facility] 100 mg 4-06 TABLET BY ity of tablet 00:00: MOUTH AT [place] [address] BEDTIME. Medical FOR Branch INSOMNIA. TRAZODONE 2020-0 Yes [id number] 100mg TAKE 1 [facility] 100 mg 4-06 TABLET BY ity of tablet 00:00: MOUTH AT [place] 00 BEDTIME. Medical FOR Branch INSOMNIA. TRAZODONE 2020-0 Yes [id number] 100mg TAKE 1 [facility] 100 mg 4-06 TABLET BY ity of tablet 00:00: MOUTH AT [place] 00 BEDTIME. Medical FOR Branch INSOMNIA. TRAZODONE 2020-0 2020- No [id number] 100mg TAKE 1 [facility] 100 mg 4-06 08-24 TABLET BY ity of tablet 00:00: 00:00 MOUTH AT [place] 00 :00 BEDTIME. Medical FOR Branch INSOMNIA. TRAZODONE 2020-0 2020- No [id number] 100mg TAKE 1 [facility] 100 mg 12-2124 TABLET BY ity of tablet 00:00: 00:00 MOUTH AT [place] 00 :00 BEDTIME. Medical FOR Branch INSOMNIA. TRAZODONE 2020-0 2020- No [id number] 100mg TAKE 1 [facility] 100 mg 12-2124 TABLET BY ity of tablet 00:00: 00:00 MOUTH AT [place] 00 :00 BEDTIME. Medical FOR Branch INSOMNIA. levothyroxi 2020-0 Yes 37.5ug 37.5 mcg, [facility] ne 3-25 Oral, ity of (SYNTHROID) 11:00: QAM-0600, [place] tablet 37.5 00 First dose Me dical mcg on Sun [place] 12/10/19 at 0600, Until Discontinu ed, Routine apixaban 2020-0 Yes 10mg 10 mg, [facility] (ELIQUIS) 3-25 Oral, BID, ity of tablet 10 01:00: First dose [place] mg 00 on Sun [facility] 12/09/19 at Branch 2000, Until Discontinu ed, Routine alcaftadine 2020-[address] [facility] [place] (LASTACAFT) 3-25 each eye. ity of 0.25 % Drop 00:58: 08 Medical Branch CYCLOSPORIN 2020-[address] [facility] [place] E (RESTASIS 3-25 each eye. ity of OPHTHALMIC) 00:58: [place] 08 Medical Branch ASCORBATE 2020-0 Yes Take by Unive rs CALCIUM 3-25 mouth. ity of (VITAMIN C 00:58: [place] ORAL) 08 Medical Branch DOCOSAHEXAN 2020-0 Yes Take by Uni vers OIC 3-25 mouth. ity of ACID/EPA 00:58: [place] (FISH OIL 08 Medical ORAL) Branch vitamin E 2020-0 Yes 1000U Take 1,000 U nivers 1,000 unit 3-25 Units by ity o f capsule 00:58: mouth [place] 08 daily. Medical Branch Magnesium 2020-0 Yes Take by Unive [facility] 250 mg Tab 3-25 mouth. ity of 00:58: [place] 08 Medical Branch vitamin B-6 2020-0 Yes 100mg Take 100 U nivers (VITAMIN 3-25 mg by ity of B-6) 100 mg 00:58: mouth [place] tablet 08 daily. Medical Branch CALCIUM 2020-0 Yes Take by Univers CARBONATE/V 3-25 mouth. ity of ITAMIN D3 00:58: [place] (VITAMIN 08 Medical D-3 ORAL) Branch oxyCODONE-a 2020-0 Yes 1{tbl} Take 1 [place] cetaminophe 3-25 tablet by ity of n 7.5-325 00:58: mouth 2 [place] mg per 08 (two) Medical tablet times Branch daily as needed for Pain. alcaftadine 2020-[address] [facility] [place] (LASTACAFT) 3-25 each eye. ity of 0.25 % Drop 00:58: [place] 08 Medical Branch CYCLOSPORIN 2020-[address] [facility] [place] E (RESTASIS 3-25 each eye. ity of OPHTHALMIC) 00:58: [place] 08 Medical Branch ASCORBATE 2020-0 Yes Take by Unive rs CALCIUM 3-25 mouth. ity of (VITAMIN C 00:58: [place] ORAL) 08 Medical Branch DOCOSAHEXAN 2020-0 Yes Take by Uni vers OIC 3-25 mouth. ity of ACID/EPA 00:58: [place] (FISH OIL 08 Medical ORAL) Branch vitamin E 2020-0 Yes 1000U Take 1,000 U nivers 1,000 unit 3-25 Units by ity o f capsule 00:58: mouth [place] 08 daily. Medical Branch Magnesium 2020-0 Yes Take by [facility] 250 mg Tab 3-25 mouth. ity of 00:58: [place] 08 Medical Branch vitamin B-6 2020-0 Yes 100mg Take 100 U nivers (VITAMIN 3-25 mg by ity of B-6) 100 mg 00:58: mouth [place] tablet 08 daily. Medical Branch CALCIUM 2020-0 Yes Take by Univers CARBONATE/V 3-25 mouth. ity of ITAMIN D3 00:58: [place] (VITAMIN 08 Medical D-3 ORAL) Branch oxyCODONE-a 2020-0 Yes 1{tbl} Take 1 [place] cetaminophe 3-25 tablet by ity of n 7.5-325 00:58: mouth 2 [place] mg per 08 (two) Medical tablet times Branch daily as needed for Pain. alcaftadine 2020-[address] [facility] [place] (LASTACAFT) 3-25 each eye. ity of 0.25 % Drop 00:58: [place] [facility] CYCLOSPORIN 2020-[address] [facility] [place] [facility] (RESTASIS 3-25 each eye. ity of OPHTHALMIC) 00:58: [place] 08 [facility] ASCORBATE 2020-0 Yes Take by [facility] CALCIUM 3-25 mouth. ity of (VITAMIN C 00:58: [place] ORAL) 08 [facility] Branch DOCOSAHEXAN 2020-0 Yes Take by [facility] OIC 3-25 mouth. ity of ACID/EPA 00:58: [place] (FISH OIL 08 Medical ORAL) Branch vitamin E 2020-0 Yes 1000U Take 1,000 [facility] 1,000 unit 3-25 Units by ity o f capsule 00:58: mouth [place] 08 daily. Medical Branch Magnesium 2020-0 Yes Take by [facility] 250 mg Tab 3-25 mouth. ity of 00:58: [place] 08 [facility] vitamin B-6 2020-0 Yes 100mg Take 100 [facility] (VITAMIN 3-25 mg by ity of B-6) 100 mg 00:58: mouth [place] tablet 08 daily. Medical Branch CALCIUM 2020-0 Yes Take by [facility] CARBONATE/V 3-25 mouth. ity of ITAMIN D3 00:58: [place] (VITAMIN 08 Medical D-3 ORAL) Branch oxyCODONE-a 2020-0 Yes 1{tbl} Take 1 [facility] [place] cetaminophe 3-25 tablet by ity of n 7.5-325 00:58: mouth 2 [place] mg per 08 (two) Medical tablet times Branch daily as needed for Pain. alcaftadine 2020-[address] [facility] [place] (LASTACAFT) 3-25 each eye. ity of 0.25 % Drop 00:58: [place] 08 [facility] CYCLOSPORIN 2020-[address] [facility] [place] [facility] (RESTASIS 3-25 each eye. ity of OPHTHALMIC) 00:58: [place] 08 [facility] ASCORBATE 2020-0 Yes Take by [facility] CALCIUM 3-25 mouth. ity of (VITAMIN C 00:58: [place] ORAL) 08 [facility] DOCOSAHEXAN 2020-0 Yes Take by [facility] OIC 3-25 mouth. ity of ACID/EPA 00:58: [place] (FISH OIL 08 Medical ORAL) Branch vitamin E 2020-0 Yes 1000U Take 1,000 [facility] 1,000 unit 3-25 Units by ity o f capsule 00:58: mouth [place] 08 daily. Medical Branch Magnesium 2020-0 Yes Take by [facility] 250 mg Tab 3-25 mouth. ity of 00:58: [place] 08 [facility] vitamin B-6 2020-0 Yes 100mg Take 100 [facility] (VITAMIN 3-25 mg by ity of B-6) 100 mg 00:58: mouth [place] tablet 08 daily. Medical Branch CALCIUM 2020-0 Yes Take by [facility] CARBONATE/V 3-25 mouth. ity of ITAMIN D3 00:58: [place] (VITAMIN 08 Medical D-3 ORAL) Branch alcaftadine 2020-[address] [facility] [place] (LASTACAFT) 3-25 each eye. ity of 0.25 % Drop 00:58: [place] 08 [facility] CYCLOSPORIN 2020-[address] [facility] [place] [facility] (RESTASIS 3-25 each eye. ity of OPHTHALMIC) 00:58: [place] 08 [facility] ASCORBATE 2020-0 Yes Take by [facility] CALCIUM 3-25 mouth. ity of (VITAMIN C 00:58: [place] ORAL) 08 [facility] DOCOSAHEXAN 2020-0 Yes Take by [facility] OIC 3-25 mouth. ity of ACID/EPA 00:58: [place] (FISH OIL 08 Medical ORAL) Branch vitamin E 2020-0 Yes 1000U Take 1,000 [facility] 1,000 unit 3-25 Units by ity o f capsule 00:58: mouth [place] 08 daily. Medical Branch Magnesium 2020-0 Yes Take by [facility] 250 mg Tab 3-25 mouth. ity of 00:58: [place] 08 [facility] vitamin B-6 2020-0 Yes 100mg Take 100 [facility] (VITAMIN 3-25 mg by ity of B-6) 100 mg 00:58: mouth [place] tablet 08 daily. Medical Branch CALCIUM 2020-0 Yes Take by [facility] CARBONATE/V 3-25 mouth. ity of ITAMIN D3 00:58: [place] (VITAMIN 08 Medical D-3 ORAL) Branch oxyCODONE-a 2020-0 Yes 1{tbl} Take 1 [facility] [place] cetaminophe 3-25 tablet by ity of n 7.5-325 00:58: mouth 2 [place] mg per 08 (two) Medical tablet times Branch daily as needed for Pain. alcaftadine 2020-[address] [facility] [place] (LASTACAFT) 3-25 each eye. ity of 0.25 % Drop 00:58: [place] 08 [facility] CYCLOSPORIN 2020-[address] [facility] [place] [facility] (RESTASIS 3-25 each eye. ity of OPHTHALMIC) 00:58: [place] 08 [facility] ASCORBATE 2020-0 Yes Take by [facility] CALCIUM 3-25 mouth. ity of (VITAMIN C 00:58: [place] ORAL) 08 [facility] Branch DOCOSAHEXAN 2020-0 Yes Take by [facility] OIC 3-25 mouth. ity of ACID/EPA 00:58: [place] (FISH OIL 08 Medical ORAL) Branch vitamin E 2020-0 Yes 1000U Take 1,000 [facility] 1,000 unit 3-25 Units by ity o f capsule 00:58: mouth [place] 08 daily. Medical Branch Magnesium 2020-0 Yes Take by [facility] 250 mg Tab 3-25 mouth. ity of 00:58: [place] 08 [facility] vitamin B-6 2020-0 Yes 100mg Take 100 [facility] (VITAMIN 3-25 mg by ity of B-6) 100 mg 00:58: mouth [place] tablet 08 daily. Medical Branch CALCIUM 2020-0 Yes Take by [facility] CARBONATE/V 3-25 mouth. ity of ITAMIN D3 00:58: [place] (VITAMIN 08 Medical D-3 ORAL) Branch oxyCODONE-a 2020-0 Yes 1{tbl} Take 1 [place] cetaminophe 3-25 tablet by ity of n 7.5-325 00:58: mouth 2 [place] mg per 08 (two) Medical tablet times Branch daily as needed for Pain. alcaftadine 2020-[address] [facility] [place] (LASTACAFT) 3-25 each eye. ity of 0.25 % Drop 00:58: [place] 08 [facility] CYCLOSPORIN 2020-[address] [facility] [place] [facility] (RESTASIS 3-25 each eye. ity of OPHTHALMIC) 00:58: [place] 08 [facility] ASCORBATE 2020-0 Yes Take by [facility] CALCIUM 3-25 mouth. ity of (VITAMIN C 00:58: [place] ORAL) 08 [facility] DOCOSAHEXAN 2020-0 Yes Take by [facility] OIC 3-25 mouth. ity of ACID/EPA 00:58: [place] (FISH OIL 08 Medical ORAL) Branch vitamin E 2020-0 Yes 1000U Take 1,000 [facility] 1,000 unit 3-25 Units by ity o f capsule 00:58: mouth [place] 08 daily. Medical Branch Magnesium 2020-0 Yes Take by [facility] 250 mg Tab 3-25 mouth. ity of 00:58: [place] 08 [facility] vitamin B-6 2020-0 Yes 100mg Take 100 [facility] (VITAMIN 3-25 mg by ity of B-6) 100 mg 00:58: mouth [place] tablet 08 daily. Medical Branch CALCIUM 2020-0 Yes Take by [facility] CARBONATE/V 3-25 mouth. ity of ITAMIN D3 00:58: [place] (VITAMIN 08 Medical D-3 ORAL) Branch oxyCODONE-a 2020-0 Yes 1{tbl} Take 1 [place] cetaminophe 3-25 tablet by ity of n 7.5-325 00:58: mouth 2 [place] mg per 08 (two) Medical tablet times Branch daily as needed for Pain. alcaftadine 2020-[address] [facility] [place] (LASTACAFT) 3-25 each eye. ity of 0.25 % Drop 00:58: [place] 08 [facility] CYCLOSPORIN 2020-[address] [facility] [place] [facility] (RESTASIS 3-25 each eye. ity of OPHTHALMIC) 00:58: [place] 08 [facility] ASCORBATE 2020-0 Yes Take by [facility] CALCIUM 3-25 mouth. ity of (VITAMIN C 00:58: [place] ORAL) 08 [facility] DOCOSAHEXAN 2020-0 Yes Take by [facility] OIC 3-25 mouth. ity of ACID/EPA 00:58: [place] (FISH OIL 08 Medical ORAL) Branch vitamin E 2020-0 Yes 1000U Take 1,000 [facility] 1,000 unit 3-25 Units by ity o f capsule 00:58: mouth [place] 08 daily. Medical Branch Magnesium 2020-0 Yes Take by [facility] 250 mg Tab 3-25 mouth. ity of 00:58: [place] 08 [facility] vitamin B-6 2020-0 Yes 100mg Take 100 [facility] (VITAMIN 3-25 mg by ity of B-6) 100 mg 00:58: mouth [place] tablet 08 daily. Medical Branch CALCIUM 2020-0 Yes Take by [facility] CARBONATE/V 3-25 mouth. ity of ITAMIN D3 00:58: [place] (VITAMIN 08 Medical D-3 ORAL) Branch oxyCODONE-a 2020-0 Yes 1{tbl} Take 1 [place] cetaminophe 3-25 tablet by ity of n 7.5-325 00:58: mouth 2 [place] mg per 08 (two) Medical tablet times Branch daily as needed for Pain. alcaftadine 2020-[address] [facility] [place] (LASTACAFT) 3-25 each eye. ity of 0.25 % Drop 00:58: [place] 08 [facility] CYCLOSPORIN 2020-[address] [facility] [place] [facility] (RESTASIS 3-25 each eye. ity of OPHTHALMIC) 00:58: [place] 08 [facility] ASCORBATE 2020-0 Yes Take by [facility] CALCIUM 3-25 mouth. ity of (VITAMIN C 00:58: [place] ORAL) 08 [facility] DOCOSAHEXAN 2020-0 Yes Take by [facility] OIC 3-25 mouth. ity of ACID/EPA 00:58: [place] (FISH OIL 08 Medical ORAL) Branch vitamin E 2020-0 Yes 1000U Take 1,000 [facility] 1,000 unit 3-25 Units by ity o f capsule 00:58: mouth [place] 08 daily. Medical Branch Magnesium 2020-0 Yes Take by [facility] 250 mg Tab 3-25 mouth. ity of 00:58: [place] 08 [facility] vitamin B-6 2020-0 Yes 100mg Take 100 [facility] (VITAMIN 3-25 mg by ity of B-6) 100 mg 00:58: mouth [place] tablet 08 daily. Medical Branch CALCIUM 2020-0 Yes Take by [facility] CARBONATE/V 3-25 mouth. ity of ITAMIN D3 00:58: [place] (VITAMIN 08 Medical D-3 ORAL) Branch oxyCODONE-a 2020-0 Yes 1{tbl} Take 1 [place] cetaminophe 3-25 tablet by ity of n 7.5-325 00:58: mouth 2 [place] mg per 08 (two) Medical tablet times Branch daily as needed for Pain. alcaftadine 2020-[address] in [place] (LASTACAFT) 3-25 each eye. ity of 0.25 % Drop 00:58: [place] 08 [facility] CYCLOSPORIN 2020-[address] [facility] [place] [facility] (RESTASIS 3-25 each eye. ity of OPHTHALMIC) 00:58: [place] 08 [facility] ASCORBATE 2020-0 Yes Take by [facility] CALCIUM 3-25 mouth. ity of (VITAMIN C 00:58: [place] ORAL) 08 [facility] DOCOSAHEXAN 2020-0 Yes Take by [facility] OIC 3-25 mouth. ity of ACID/EPA 00:58: [place] (FISH OIL 08 Medical ORAL) Branch vitamin E 2020-0 Yes 1000U Take 1,000 [facility] 1,000 unit 3-25 Units by ity o f capsule 00:58: mouth [place] 08 daily. Medical Branch Magnesium 2020-0 Yes Take by [facility] 250 mg Tab 3-25 mouth. ity of 00:58: 08 [facility] Branch vitamin B-6 2020-0 Yes 100mg Take 100 [facility] (VITAMIN 3-25 mg by ity of B-6) 100 mg 00:58: mouth [place] tablet 08 daily. Medical Branch CALCIUM 2020-0 Yes Take by [facility] CARBONATE/V 3-25 mouth. ity of ITAMIN D3 00:58: (VITAMIN 08 Medical D-3 ORAL) Branch oxyCODONE-a 2020-0 Yes 1{tbl} Take 1 [place] cetaminophe 3-25 tablet by ity of n 7.5-325 00:58: mouth 2 [place] mg per 08 (two) Medical tablet times Branch daily as needed for Pain. alcaftadine 2020-[address] in [place] (LASTACAFT) 3-25 each eye. ity of 0.25 % Drop 00:58: 08 [facility] CYCLOSPORIN 2020-[address] [facility] [place] [facility] (RESTASIS 3-25 each eye. ity of OPHTHALMIC) 00:58: 08 [facility] ASCORBATE 2020-0 Yes Take by [facility] CALCIUM 3-25 mouth. ity of (VITAMIN C 00:58: [place] ORAL) 08 [facility] DOCOSAHEXAN 2020-0 Yes Take by [facility] OIC 3-25 mouth. ity of ACID/EPA 00:58: (FISH OIL 08 Medical ORAL) Branch vitamin E 2020-0 Yes 1000U Take 1,000 [facility] 1,000 unit 3-25 Units by ity o f capsule 00:58: mouth [place] 08 daily. Medical Branch Magnesium 2020-0 Yes Take by [facility] 250 mg Tab 3-25 mouth. ity of 00:58: 08 [facility] vitamin B-6 2020-0 Yes 100mg Take 100 [facility] (VITAMIN 3-25 mg by ity of B-6) 100 mg 00:58: mouth [place] tablet 08 daily. Medical Branch CALCIUM 2020-0 Yes Take by [facility] CARBONATE/V 3-25 mouth. ity of ITAMIN D3 00:58: [place] (VITAMIN 08 Medical D-3 ORAL) Branch oxyCODONE-a 2020-0 Yes 1{tbl} Take 1 [place] cetaminophe 3-25 tablet by ity of n 7.5-325 00:58: mouth 2 [place] mg per 08 (two) Medical tablet times Branch daily as needed for Pain. alcaftadine 2020-[address] in [place] (LASTACAFT) 3-25 each eye. ity of 0.25 % Drop 00:58: [place] 08 [facility] CYCLOSPORIN 2020-[address] in [place] [facility] (RESTASIS 3-25 each eye. ity of OPHTHALMIC) 00:58: [place] 08 [facility] ASCORBATE 2020-0 Yes Take by [facility] CALCIUM 3-25 mouth. ity of (VITAMIN C 00:58: [place] ORAL) 08 [facility] DOCOSAHEXAN 2020-0 Yes Take by [facility] OIC 3-25 mouth. ity of ACID/EPA 00:58: [place] (FISH OIL 08 Medical ORAL) Branch vitamin E 2020-0 Yes 1000U Take 1,000 [facility] 1,000 unit 3-25 Units by ity o f capsule 00:58: mouth [place] 08 daily. Medical Branch Magnesium 2020-0 Yes Take by [facility] 250 mg Tab 3-25 mouth. ity of 00:58: [place] 08 [facility] vitamin B-6 2020-0 Yes 100mg Take 100 [facility] (VITAMIN 3-25 mg by ity of B-6) 100 mg 00:58: mouth [place] tablet 08 daily. Medical Branch CALCIUM 2020-0 Yes Take by [facility] CARBONATE/V 3-25 mouth. ity of ITAMIN D3 00:58: [place] (VITAMIN 08 Medical D-3 ORAL) Branch oxyCODONE-a 2020-0 Yes 1{tbl} Take 1 [facility] [place] cetaminophe 3-25 tablet by ity of n 7.5-325 00:58: mouth 2 [place] mg per 08 (two) Medical tablet times Branch daily as needed for Pain. alcaftadine 2020-[address] in [place] (LASTACAFT) 3-25 each eye. ity of 0.25 % Drop 00:58: [place] 08 [facility] CYCLOSPORIN 2020-[address] in [place] [facility] (RESTASIS 3-25 each eye. ity of OPHTHALMIC) 00:58: [place] 08 [facility] ASCORBATE 2020-0 Yes Take by [facility] CALCIUM 3-25 mouth. ity of (VITAMIN C 00:58: [place] ORAL) 08 [facility] DOCOSAHEXAN 2020-0 Yes Take by [facility] O[facility] 3-25 mouth. ity of ACID/EPA 00:58: [place] (FISH OIL 08 Medical ORAL) Branch vitamin E 2020-0 Yes 1000U Take 1,000 [facility] 1,000 unit 3-25 Units by ity o f capsule 00:58: mouth [place] 08 daily. Medical Branch Magnesium 2020-0 Yes Take by [facility] 250 mg Tab 3-25 mouth. ity of 00:58: [place] 08 [facility] vitamin B-6 2020-0 Yes 100mg Take 100 [facility] (VITAMIN 3-25 mg by ity of B-6) 100 mg 00:58: mouth [place] tablet 08 daily. Medical Branch CALCIUM 2020-0 Yes Take by [facility] CARBONATE/V 3-25 mouth. ity of ITAMIN D3 00:58: [place] (VITAMIN 08 Medical D-3 ORAL) Branch oxyCODONE-a 2020-0 Yes 1{tbl} Take 1 [place] cetaminophe 3-25 tablet by ity of n 7.5-325 00:58: mouth 2 [place] mg per 08 (two) Medical tablet times Branch daily as needed for Pain. alcaftadine 2020-[address] in [place] (LASTACAFT) 3-25 each eye. ity of 0.25 % Drop 00:58: [place] 08 [facility] CYCLOSPORIN 2020-[address] in [place] [facility] (RESTASIS 3-25 each eye. ity of OPHTHALMIC) 00:58: [place] 08 [facility] ASCORBATE 2020-0 Yes Take by [facility] CALCIUM 3-25 mouth. ity of (VITAMIN C 00:58: [place] ORAL) 08 [facility] Branch DOCOSAHEXAN 2020-0 Yes Take by [facility] OIC 3-25 mouth. ity of ACID/EPA 00:58: [place] (FISH OIL 08 Medical ORAL) Branch vitamin E 2020-0 Yes 1000U Take 1,000 [facility] 1,000 unit 3-25 Units by ity o f capsule 00:58: mouth [place] 08 daily. Medical Branch Magnesium 2020-0 Yes Take by [facility] 250 mg Tab 3-25 mouth. ity of 00:58: [place] 08 [facility] vitamin B-6 2020-0 Yes 100mg Take 100 [facility] (VITAMIN 3-25 mg by ity of B-6) 100 mg 00:58: mouth [place] tablet 08 daily. Medical Branch CALCIUM 2020-0 Yes Take by [facility] CARBONATE/V 3-25 mouth. ity of ITAMIN D3 00:58: [place] (VITAMIN 08 Medical D-3 ORAL) Branch oxyCODONE-a 2020-0 Yes 1{tbl} Take 1 [facility] [place] cetaminophe 3-25 tablet by ity of n 7.5-325 00:58: mouth 2 [place] mg per 08 (two) Medical tablet times Branch daily as needed for Pain. alcaftadine 2020-[address] in [place] (LASTACAFT) 3-25 each eye. ity of 0.25 % Drop 00:58: [place] 08 [facility] CYCLOSPORIN 2020-[address] in [place] [facility] (RESTASIS 3-25 each eye. ity of OPHTHALMIC) 00:58: [place] 08 [facility] ASCORBATE 2020-0 Yes Take by [facility] CALCIUM 3-25 mouth. ity of (VITAMIN C 00:58: [place] ORAL) 08 [facility] Branch DOCOSAHEXAN 2020-0 Yes Take by [facility] OIC 3-25 mouth. ity of ACID/EPA 00:58: [place] (FISH OIL 08 Medical ORAL) Branch vitamin E 2020-0 Yes 1000U Take 1,000 [facility] 1,000 unit 3-25 Units by ity o f capsule 00:58: mouth [place] 08 daily. Medical Branch Magnesium 2020-0 Yes Take by [facility] 250 mg Tab 3-25 mouth. ity of 00:58: [place] 08 [facility] vitamin B-6 2020-0 Yes 100mg Take 100 [facility] (VITAMIN 3-25 mg by ity of B-6) 100 mg 00:58: mouth [place] tablet 08 daily. Medical Branch CALCIUM 2020-0 Yes Take by [facility] CARBONATE/V 3-25 mouth. ity of ITAMIN D3 00:58: [place] (VITAMIN 08 Medical D-3 ORAL) Branch oxyCODONE-a 2020-0 Yes 1{tbl} Take 1 [place] cetaminophe 3-25 tablet by ity of n 7.5-325 00:58: mouth 2 [place] mg per 08 (two) Medical tablet times Branch daily as needed for Pain. alcaftadine 2020-[address] in [place] (LASTACAFT) 3-25 each eye. ity of 0.25 % Drop 00:58: [place] 08 [facility] CYCLOSPORIN 2020-[address] in [place] [facility] (RESTASIS 3-25 each eye. ity of OPHTHALMIC) 00:58: [place] 08 [facility] ASCORBATE 2020-0 Yes Take by [facility] CALCIUM 3-25 mouth. ity of (VITAMIN C 00:58: [place] ORAL) 08 [facility] Branch DOCOSAHEXAN 2020-0 Yes Take by [facility] OIC 3-25 mouth. ity of ACID/EPA 00:58: [place] (FISH OIL 08 Medical ORAL) Branch vitamin E 2020-0 Yes 1000U Take 1,000 [facility] 1,000 unit 3-25 Units by ity o f capsule 00:58: mouth [place] 08 daily. Medical Branch Magnesium 2020-0 Yes Take by [facility] 250 mg Tab 3-25 mouth. ity of 00:58: [place] 08 [facility] vitamin B-6 2020-0 Yes 100mg Take 100 [facility] (VITAMIN 3-25 mg by ity of B-6) 100 mg 00:58: mouth [place] tablet 08 daily. Medical Branch CALCIUM 2020-0 Yes Take by [facility] CARBONATE/V 3-25 mouth. ity of ITAMIN D3 00:58: [place] (VITAMIN 08 Medical D-3 ORAL) Branch oxyCODONE-a 2020-0 Yes 1{tbl} Take 1 [place] cetaminophe 3-25 tablet by ity of n 7.5-325 00:58: mouth 2 [place] mg per 08 (two) Medical tablet times Branch daily as needed for Pain. alcaftadine 2020-[address] in [place] (LASTACAFT) 3-25 each eye. ity of 0.25 % Drop 00:58: [place] 08 [facility] CYCLOSPORIN 2020-[address] in [place] [facility] (RESTASIS 3-25 each eye. ity of OPHTHALMIC) 00:58: [place] 08 [facility] ASCORBATE 2020-0 Yes Take by [facility] CALCIUM 3-25 mouth. ity of (VITAMIN C 00:58: [place] ORAL) 08 [facility] Branch DOCOSAHEXAN 2020-0 Yes Take by [facility] OIC 3-25 mouth. ity of ACID/EPA 00:58: [place] (FISH OIL 08 Medical ORAL) Branch vitamin E 2020-0 Yes 1000U Take 1,000 [facility] 1,000 unit 3-25 Units by ity o f capsule 00:58: mouth [place] 08 daily. Medical Branch Magnesium 2020-0 Yes Take by [facility] 250 mg Tab 3-25 mouth. ity of [...] for Pain. alcaftadine 2020-[address] in [place] (LASTACAFT) 3-25 each eye. ity of 0.25 % Drop 00:58: 08 [facility] CYCLOSPORIN 2020-[address] in [place] [facility] (RESTASIS 3-25 each eye. ity of OPHTHALMIC) 00:58: 08 [facility] ASCORBATE 2020-0 Yes Take by [facility] CALCIUM 3-25 mouth. ity of (VITAMIN C 00:58: [place] ORAL) 08 [facility] Branch DOCOSAHEXAN 2020-0 Yes Take by [facility] O[facility] 3-25 mouth. ity of ACID/EPA 00:58: [place] (FISH OIL 08 Medical ORAL) Branch vitamin E 2020-0 Yes 1000U Take 1,000 [facility] 1,000 unit 3-25 Units by ity o f capsule 00:58: mouth [place] 08 daily. Medical Branch Magnesium 2020-0 Yes Take by [facility] 250 mg Tab 3-25 mouth. ity of 00:58: [place] 08 [facility] vitamin B-6 2020-0 Yes 100mg Take 100 [facility] (VITAMIN 3-25 mg by ity of B-6) 100 mg 00:58: mouth [place] tablet 08 daily. Medical Branch CALCIUM 2020-0 Yes Take by [facility] CARBONATE/V 3-25 mouth. ity of ITAMIN D3 00:58: (VITAMIN 08 Medical D-3 ORAL) Branch oxyCODONE-a 2020-0 Yes 1{tbl} Take 1 [place] cetaminophe 3-25 tablet by ity of n 7.5-325 00:58: mouth 2 [place] mg per 08 (two) Medical tablet times Branch daily as needed for Pain. alcaftadine 2020-[address] in [place] (LASTACAFT) 3-25 each eye. ity of 0.25 % Drop 00:58: [place] 08 [facility] CYCLOSPORIN 2020-[address] in [place] [facility] (RESTASIS 3-25 each eye. ity of OPHTHALMIC) 00:58: [place] 08 [facility] ASCORBATE 2020-0 Yes Take by [facility] CALCIUM 3-25 mouth. ity of (VITAMIN C 00:58: [place] ORAL) 08 [facility] Branch DOCOSAHEXAN 2020-0 Yes Take by [facility] OIC 3-25 mouth. ity of ACID/EPA 00:58: [place] (FISH OIL 08 Medical ORAL) Branch vitamin E 2020-0 Yes 1000U Take 1,000 [facility] 1,000 unit 3-25 Units by ity o f capsule 00:58: mouth [place] 08 daily. Medical Branch Magnesium 2020-0 Yes Take by [id number] 250 mg Tab 3-25 mouth. ity of 00:58: [place] 08 [facility] vitamin B-6 2020-0 Yes 100mg Take 100 [facility] (VITAMIN 3-25 mg by ity of B-6) 100 mg 00:58: mouth [place] tablet 08 daily. Medical Branch CALCIUM 2020-0 Yes Take by [facility] CARBONATE/V 3-25 mouth. ity of ITAMIN D3 00:58: [place] (VITAMIN 08 Medical D-3 ORAL) Branch oxyCODONE-a 2020-0 Yes 1{tbl} Take 1 [place] cetaminophe 3-25 tablet by ity of n 7.5-325 00:58: mouth 2 [place] mg per 08 (two) Medical tablet times Branch daily as needed for Pain. alcaftadine 2020-[address] in [place] (LASTACAFT) 3-25 each eye. ity of 0.25 % Drop 00:58: [place] 08 [facility] CYCLOSPORIN 2020-[address] in [place] [facility] (RESTASIS 3-25 each eye. ity of OPHTHALMIC) 00:58: [place] 08 [facility] ASCORBATE 2020-0 Yes Take by [facility] CALCIUM 3-25 mouth. ity of (VITAMIN C 00:58: [place] ORAL) 08 [facility] Branch DOCOSAHEXAN 2020-0 Yes Take by [facility] OIC 3-25 mouth. ity of ACID/EPA 00:58: [place] (FISH OIL 08 Medical ORAL) Branch vitamin E 2020-0 Yes 1000U Take 1,000 [facility] 1,000 unit 3-25 Units by ity o f capsule 00:58: mouth [place] 08 daily. Medical Branch Magnesium 2020-0 Yes Take by [facility] 250 mg Tab 3-25 mouth. ity of 00:58: [place] 08 [facility] vitamin B-6 2020-0 Yes 100mg Take 100 [facility] (VITAMIN 3-25 mg by ity of B-6) 100 mg 00:58: mouth [place] tablet 08 daily. Medical Branch CALCIUM 2020-0 Yes Take by [facility] CARBONATE/V 3-25 mouth. ity of ITAMIN D3 00:58: [place] (VITAMIN 08 Medical D-3 ORAL) Branch oxyCODONE-a 2020-0 Yes 1{tbl} Take 1 [place] cetaminophe 3-25 tablet by ity of n 7.5-325 00:58: mouth 2 [place] mg per 08 (two) Medical tablet times Branch daily as needed for Pain. alcaftadine 2020-[address] in [place] (LASTACAFT) 3-25 each eye. ity of 0.25 % Drop 00:58: [place] 08 [facility] CYCLOSPORIN 2020-[address] in [place] [facility] (RESTASIS 3-25 each eye. ity of OPHTHALMIC) 00:58: [place] 08 [facility] ASCORBATE 2020-0 Yes Take by [facility] CALCIUM 3-25 mouth. ity of (VITAMIN C 00:58: [place] ORAL) 08 [facility] Branch DOCOSAHEXAN 2020-0 Yes Take by [facility] OIC 3-25 mouth. ity of ACID/EPA 00:58: [place] (FISH OIL 08 Medical ORAL) Branch vitamin E 2020-0 Yes 1000U Take 1,000 [facility] 1,000 unit 3-25 Units by ity o f capsule 00:58: mouth [place] 08 daily. Medical Branch Magnesium 2020-0 Yes Take by [facility] 250 mg Tab 3-25 mouth. ity of 00:58: [place] 08 [facility] vitamin B-6 2020-0 Yes 100mg Take 100 [facility] (VITAMIN 3-25 mg by ity of B-6) 100 mg 00:58: mouth [place] tablet 08 daily. Medical Branch CALCIUM 2020-0 Yes Take by [facility] CARBONATE/V 3-25 mouth. ity of ITAMIN D3 00:58: [place] (VITAMIN 08 Medical D-3 ORAL) Branch oxyCODONE-a 2020-0 Yes 1{tbl} Take 1 [facility] [place] cetaminophe 3-25 tablet by ity of n 7.5-325 00:58: mouth 2 [place] mg per 08 (two) Medical tablet times Branch daily as needed for Pain. alcaftadine 2020-[address] in [place] (LASTACAFT) 3-25 each eye. ity of 0.25 % Drop 00:58: [place] 08 [facility] CYCLOSPORIN 2020-[address] in [place] [facility] (RESTASIS 3-25 each eye. ity of OPHTHALMIC) 00:58: [place] 08 [facility] ASCORBATE 2020-0 Yes Take by [facility] CALCIUM 3-25 mouth. ity of (VITAMIN C 00:58: [place] ORAL) 08 [facility] Branch DOCOSAHEXAN 2020-0 Yes Take by [facility] OIC 3-25 mouth. ity of ACID/EPA 00:58: [place] (FISH OIL 08 Medical ORAL) Branch vitamin E 2020-0 Yes 1000U Take 1,000 [facility] 1,000 unit 3-25 Units by ity o f capsule 00:58: mouth [place] 08 daily. Medical Branch Magnesium 2020-0 Yes Take by [facility] 250 mg Tab 3-25 mouth. ity of 00:58: [place] 08 [facility] vitamin B-6 2020-0 Yes 100mg Take 100 [facility] (VITAMIN 3-25 mg by ity of B-6) 100 mg 00:58: mouth [place] tablet 08 daily. Medical Branch CALCIUM 2020-0 Yes Take by [facility] CARBONATE/V 3-25 mouth. ity of ITAMIN D3 00:58: [place] (VITAMIN 08 Medical D-3 ORAL) Branch oxyCODONE-a 2020-0 Yes 1{tbl} Take 1 [place] cetaminophe 3-25 tablet by ity of n 7.5-325 00:58: mouth 2 [place] mg per 08 (two) Medical tablet times Branch daily as needed for Pain. alcaftadine 2020-[address] in [place] (LASTACAFT) 3-25 each eye. ity of 0.25 % Drop 00:58: [place] 08 [facility] CYCLOSPORIN 2020-[address] in [place] [facility] (RESTASIS 3-25 each eye. ity of OPHTHALMIC) 00:58: [place] 08 [facility] ASCORBATE 2020-0 Yes Take by [facility] CALCIUM 3-25 mouth. ity of (VITAMIN C 00:58: [place] ORAL) 08 [facility] Branch DOCOSAHEXAN 2020-0 Yes Take by [facility] OIC 3-25 mouth. ity of ACID/EPA 00:58: [place] (FISH OIL 08 Medical ORAL) Branch vitamin E 2020-0 Yes 1000U Take 1,000 [facility] 1,000 unit 3-25 Units by ity o f capsule 00:58: mouth [place] 08 daily. Medical Branch Magnesium 2020-0 Yes Take by [facility] 250 mg Tab 3-25 mouth. ity of 00:58: [place] 08 [facility] vitamin B-6 2020-0 Yes 100mg Take 100 [facility] (VITAMIN 3-25 mg by ity of B-6) 100 mg 00:58: mouth [place] tablet 08 daily. Medical Branch CALCIUM 2020-0 Yes Take by [facility] CARBONATE/V 3-25 mouth. ity of ITAMIN D3 00:58: [place] (VITAMIN 08 Medical D-3 ORAL) Branch oxyCODONE-a 2020-0 Yes 1{tbl} Take 1 [facility] [place] cetaminophe 3-25 tablet by ity of n 7.5-325 00:58: mouth 2 [place] mg per 08 (two) Medical tablet times Branch daily as needed for Pain. alcaftadine 2020-[address] in [place] (LASTACAFT) 3-25 each eye. ity of 0.25 % Drop 00:58: [place] 08 [facility] CYCLOSPORIN 2020-[address] in [place] E (RESTASIS 3-25 each eye. ity of OPHTHALMIC) 00:58: [place] 08 [facility] ASCORBATE 2020-0 Yes Take by Unive rs CALCIUM 3-25 mouth. ity of (VITAMIN C 00:58: [place] ORAL) 08 Medical Branch DOCOSAHEXAN 2020-0 Yes Take by Uni vers OIC 3-25 mouth. ity of ACID/EPA 00:58: [place] (FISH OIL 08 Medical ORAL) Branch vitamin E 2020-0 Yes 1000U Take 1,000 U nivers 1,000 unit 3-25 Units by ity o f capsule 00:58: mouth [place] 08 daily. Medical Branch Magnesium 2020-0 Yes Take by Unive rs 250 mg Tab 3-25 mouth. ity of 00:58: [place] 08 Medical Branch vitamin B-6 2020-0 Yes 100mg Take 100 U nivers (VITAMIN 3-25 mg by ity of B-6) 100 mg 00:58: mouth [place] tablet 08 daily. Medical Branch CALCIUM 2020-0 Yes Take by [facility] CARBONATE/V 3-25 mouth. ity of ITAMIN D3 00:58: [place] (VITAMIN 08 Medical D-3 ORAL) Branch oxyCODONE-a 2020-0 Yes 1{tbl} Take 1 [place] cetaminophe 3-25 tablet by ity of n 7.5-325 00:58: mouth 2 [place] mg per 08 (two) Medical tablet times Branch daily as needed for Pain. alcaftadine 2020-[address] in [place] (LASTACAFT) 3-25 each eye. ity of 0.25 % Drop 00:58: 08 Medical Branch CYCLOSPORIN 2020-[address] in [place] E (RESTASIS 3-25 each eye. ity of OPHTHALMIC) 00:58: 08 Medical Branch ASCORBATE 2020-0 Yes Take by [facility] rs CALCIUM 3-25 mouth. ity of (VITAMIN C 00:58: [place] ORAL) 08 Medical Branch DOCOSAHEXAN 2020-0 Yes Take by Uni vers OIC 3-25 mouth. ity of ACID/EPA 00:58: [place] (FISH OIL 08 Medical ORAL) Branch vitamin E 2020-0 Yes 1000U Take 1,000 U nivers 1,000 unit 3-25 Units by ity o f capsule 00:58: mouth [place] 08 daily. Medical Branch Magnesium 2020-0 Yes Take by [facility] 250 mg Tab 3-25 mouth. ity of 00:58: 08 Medical Branch vitamin B-6 2020-0 Yes 100mg Take 100 U [facility] (VITAMIN 3-25 mg by ity of B-6) 100 mg 00:58: mouth [place] tablet 08 daily. Medical Branch CALCIUM 2020-0 Yes Take by [facility] CARBONATE/V 3-25 mouth. ity of ITAMIN D3 00:58: [place] (VITAMIN 08 Medical D-3 ORAL) Branch oxyCODONE-a 2020-0 Yes 1{tbl} Take 1 [place] cetaminophe 3-25 tablet by ity of n 7.5-325 00:58: mouth 2 [place] mg per 08 (two) Medical tablet times Branch daily as needed for Pain. alcaftadine 2020-[address] in [place] (LASTACAFT) 3-25 each eye. ity of 0.25 % Drop 00:58: [place] 08 Medical Branch CYCLOSPORIN 2020-[address] in [place] [facility] (RESTASIS 3-25 each eye. ity of OPHTHALMIC) 00:58: [place] 08 Medical Branch ASCORBATE 2020-0 Yes Take by [facility] rs CALCIUM 3-25 mouth. ity of (VITAMIN C 00:58: [place] ORAL) 08 Medical Branch DOCOSAHEXAN 2020-0 Yes Take by Uni vers OIC 3-25 mouth. ity of ACID/EPA 00:58: [place] (FISH OIL 08 Medical ORAL) Branch vitamin E 2020-0 Yes 1000U Take 1,000 U nivers 1,000 unit 3-25 Units by ity o f capsule 00:58: mouth [place] 08 daily. Medical Branch Magnesium 2020-0 Yes Take by [facility] 250 mg Tab 3-25 mouth. ity of 00:58: [place] 08 Medical Branch vitamin B-6 2020-0 Yes 100mg Take 100 U n[facility] (VITAMIN 3-25 mg by ity of B-6) 100 mg 00:58: mouth [place] tablet 08 daily. Medical Branch CALCIUM 2020-0 Yes Take by [facility] CARBONATE/V 3-25 mouth. ity of ITAMIN D3 00:58: [place] (VITAMIN 08 Medical D-3 ORAL) Branch alcaftadine 2020-[address] in [place] (LASTACAFT) 3-25 each eye. ity of 0.25 % Drop 00:58: [place] 08 Medical Branch CYCLOSPORIN 2020-[address] in [place] (RESTASIS 3-25 each eye. ity of OPHTHALMIC) 00:58: [place] 08 Medical Branch ASCORBATE 2020-0 Yes Take by [facility] rs CALCIUM 3-25 mouth. ity of (VITAMIN C 00:58: [place] ORAL) 08 Medical Branch DOCOSAHEXAN 2020-0 Yes Take by Uni vers OIC 3-25 mouth. ity of ACID/EPA 00:58: [place] (FISH OIL 08 Medical ORAL) Branch vitamin E 2020-0 Yes 1000U Take 1,000 U nivers 1,000 unit 3-25 Units by ity o f capsule 00:58: mouth [place] 08 daily. Medical Branch Magnesium 2020-0 Yes Take by [facility] 250 mg Tab 3-25 mouth. ity of 00:58: [place] 08 Medical Branch vitamin B-6 2020-0 Yes 100mg Take 100 U n[facility] (VITAMIN 3-25 mg by ity of B-6) 100 mg 00:58: mouth [place] tablet 08 daily. Medical Branch CALCIUM 2020-0 Yes Take by [facility] CARBONATE/V 3-25 mouth. ity of ITAMIN D3 00:58: [place] (VITAMIN 08 Medical D-3 ORAL) Branch alcaftadine 2020-[address] in [place] (LASTACAFT) 3-25 each eye. ity of 0.25 % Drop 00:58: [place] 08 Medical Branch CYCLOSPORIN 2020-[address] in [place] (RESTASIS 3-25 each eye. ity of OPHTHALMIC) 00:58: [place] 08 Medical Branch ASCORBATE 2020-0 Yes Take by [facility] rs CALCIUM 3-25 mouth. ity of (VITAMIN C 00:58: [place] ORAL) 08 Medical Branch DOCOSAHEXAN 2020-0 Yes Take by Uni vers OIC 3-25 mouth. ity of ACID/EPA 00:58: [place] (FISH OIL 08 Medical ORAL) Branch vitamin E 2020-0 Yes 1000U Take 1,000 U nivers 1,000 unit 3-25 Units by ity o f capsule 00:58: mouth [place] 08 daily. Medical Branch Magnesium 2020-0 Yes Take by [facility] 250 mg Tab 3-25 mouth. ity of 00:58: [place] 08 Medical Branch vitamin B-6 2020-0 Yes 100mg Take 100 U [facility] (VITAMIN 3-25 mg by ity of B-6) 100 mg 00:58: mouth [place] tablet 08 daily. Medical Branch CALCIUM 2020-0 Yes Take by [facility] CARBONATE/V 3-25 mouth. ity of ITAMIN D3 00:58: [place] (VITAMIN 08 Medical D-3 ORAL) Branch alcaftadine 2020-[address] in [place] (LASTACAFT) 3-25 each eye. ity of 0.25 % Drop 00:58: [place] 08 Medical Branch CYCLOSPORIN 2020-[address] in [place] E (RESTASIS 3-25 each eye. ity of OPHTHALMIC) 00:58: [place] 08 Medical Branch ASCORBATE 2020-0 Yes Take by [facility] rs CALCIUM 3-25 mouth. ity of (VITAMIN C 00:58: [place] ORAL) 08 Medical Branch DOCOSAHEXAN 2020-0 Yes Take by Uni vers OIC 3-25 mouth. ity of ACID/EPA 00:58: [place] (FISH OIL 08 Medical ORAL) Branch vitamin E 2020-0 Yes 1000U Take 1,000 U nivers 1,000 unit 3-25 Units by ity o f capsule 00:58: mouth [place] 08 daily. Medical Branch Magnesium 2020-0 Yes Take by [facility] 250 mg Tab 3-25 mouth. ity of 00:58: [place] 08 Medical Branch vitamin B-6 2020-0 Yes 100mg Take 100 U n[facility] (VITAMIN 3-25 mg by ity of B-6) 100 mg 00:58: mouth [place] tablet 08 daily. Medical Branch CALCIUM 2020-0 Yes Take by [facility] CARBONATE/V 3-25 mouth. ity of ITAMIN D3 00:58: [place] (VITAMIN 08 Medical D-3 ORAL) Branch alcaftadine 2020-[address] in [place] (LASTACAFT) 3-25 each eye. ity of 0.25 % Drop 00:58: [place] 08 Medical Branch CYCLOSPORIN 2020-[address] in [place] (RESTASIS 3-25 each eye. ity of OPHTHALMIC) 00:58: [place] 08 Medical Branch ASCORBATE 2020-0 Yes Take by [facility] rs CALCIUM 3-25 mouth. ity of (VITAMIN C 00:58: [place] ORAL) 08 Medical Branch DOCOSAHEXAN 2020-0 Yes Take by Uni vers OIC 3-25 mouth. ity of ACID/EPA 00:58: [place] (FISH OIL 08 Medical ORAL) Branch vitamin E 2020-0 Yes 1000U Take 1,000 U nivers 1,000 unit 3-25 Units by ity o f capsule 00:58: mouth [place] 08 daily. Medical Branch Magnesium 2020-0 Yes Take by [facility] 250 mg Tab 3-25 mouth. ity of 00:58: [place] 08 Medical Branch vitamin B-6 2020-0 Yes 100mg Take 100 U [facility] (VITAMIN 3-25 mg by ity of B-6) 100 mg 00:58: mouth [place] tablet 08 daily. Medical Branch CALCIUM 2020-0 Yes Take by [facility] CARBONATE/V 3-25 mouth. ity of ITAMIN D3 00:58: [place] (VITAMIN 08 Medical D-3 ORAL) Branch alcaftadine 2020-[address] in [place] (LASTACAFT) 3-25 each eye. ity of 0.25 % Drop 00:58: [place] 08 Medical Branch CYCLOSPORIN 2020-[address] in [place] [facility] (RESTASIS 3-25 each eye. ity of OPHTHALMIC) 00:58: [place] 08 Medical Branch ASCORBATE 2020-0 Yes Take by [facility] rs CALCIUM 3-25 mouth. ity of (VITAMIN C 00:58: [place] ORAL) 08 Medical Branch DOCOSAHEXAN 2020-0 Yes Take by Uni vers OIC 3-25 mouth. ity of ACID/EPA 00:58: [place] (FISH OIL 08 Medical ORAL) Branch vitamin E 2020-0 Yes 1000U Take 1,000 U nivers 1,000 unit 3-25 Units by ity o f capsule 00:58: mouth [place] 08 daily. Medical Branch Magnesium 2020-0 Yes Take by [facility] 250 mg Tab 3-25 mouth. ity of 00:58: [place] 08 Medical Branch vitamin B-6 2020-0 Yes 100mg Take 100 U n[facility] (VITAMIN 3-25 mg by ity of B-6) 100 mg 00:58: mouth [place] tablet 08 daily. Medical Branch CALCIUM 2020-0 Yes Take by [facility] CARBONATE/V 3-25 mouth. ity of ITAMIN D3 00:58: [place] (VITAMIN 08 Medical D-3 ORAL) Branch alcaftadine 2020-[address] in [place] (LASTACAFT) 3-25 each eye. ity of 0.25 % Drop 00:58: [place] 08 Medical Branch CYCLOSPORIN 2020-[address] in [place] [facility] (RESTASIS 3-25 each eye. ity of OPHTHALMIC) 00:58: 08 Medical Branch ASCORBATE 2020-0 Yes Take by [facility] CALCIUM 3-25 mouth. ity of (VITAMIN C 00:58: [place] ORAL) 08 Medical Branch DOCOSAHEXAN 2020-0 Yes Take by Uni vers OIC 3-25 mouth. ity of ACID/EPA 00:58: [place] (FISH OIL 08 Medical ORAL) Branch vitamin E 2020-0 Yes 1000U Take 1,000 U nivers 1,000 unit 3-25 Units by ity o f capsule 00:58: mouth [place] 08 daily. Medical Branch Magnesium 2020-0 Yes Take by [facility] 250 mg Tab 3-25 mouth. ity of 00:58: 08 Medical Branch vitamin B-6 2020-0 Yes 100mg Take 100 U n[facility] (VITAMIN 3-25 mg by ity of B-6) 100 mg 00:58: mouth [place] tablet 08 daily. Medical Branch CALCIUM 2020-0 Yes Take by [facility] CARBONATE/V 3-25 mouth. ity of ITAMIN D3 00:58: [place] (VITAMIN 08 Medical D-3 ORAL) Branch alcaftadine 2020-[address] in [place] (LASTACAFT) 3-25 each eye. ity of 0.25 % Drop 00:58: [place] 08 Medical Branch CYCLOSPORIN 2020-[address] in [place] [facility] (RESTASIS 3-25 each eye. ity of OPHTHALMIC) 00:58: [place] 08 Medical Branch ASCORBATE 2020-0 Yes Take by [facility] rs CALCIUM 3-25 mouth. ity of (VITAMIN C 00:58: [place] ORAL) 08 Medical Branch DOCOSAHEXAN 2020-0 Yes Take by Uni vers OIC 3-25 mouth. ity of ACID/EPA 00:58: [place] (FISH OIL 08 Medical ORAL) Branch vitamin E 2020-0 Yes 1000U Take 1,000 U nivers 1,000 unit 3-25 Units by ity o f capsule 00:58: mouth [place] 08 daily. Medical Branch Magnesium 2020-0 Yes Take by [facility] 250 mg Tab 3-25 mouth. ity of 00:58: [place] 08 Medical Branch vitamin B-6 2020-0 Yes 100mg Take 100 U n[facility] (VITAMIN 3-25 mg by ity of B-6) 100 mg 00:58: mouth [place] tablet 08 daily. Medical Branch CALCIUM 2020-0 Yes Take by [facility] CARBONATE/V 3-25 mouth. ity of ITAMIN D3 00:58: [place] (VITAMIN 08 Medical D-3 ORAL) Branch alcaftadine 2020-[address] in [place] (LASTACAFT) 3-25 each eye. ity of 0.25 % Drop 00:58: [place] 08 Medical Branch CYCLOSPORIN 2020-[address] in [place] E (RESTASIS 3-25 each eye. ity of OPHTHALMIC) 00:58: [place] 08 Medical Branch ASCORBATE 2020-0 Yes Take by Un[facility] rs CALCIUM 3-25 mouth. ity of (VITAMIN C 00:58: [place] ORAL) 08 Medical Branch DOCOSAHEXAN 2020-0 Yes Take by Uni vers OIC 3-25 mouth. ity of ACID/EPA 00:58: [place] (FISH OIL 08 Medical ORAL) Branch vitamin E 2020-0 Yes 1000U Take 1,000 U nivers 1,000 unit 3-25 Units by ity o f capsule 00:58: mouth [place] 08 daily. Medical Branch Magnesium 2020-0 Yes Take by [facility] 250 mg Tab 3-25 mouth. ity of 00:58: [place] 08 Medical Branch vitamin B-6 2020-0 Yes 100mg Take 100 U n[facility] (VITAMIN 3-25 mg by ity of B-6) 100 mg 00:58: mouth [place] tablet 08 daily. Medical Branch CALCIUM 2020-0 Yes Take by [facility] CARBONATE/V 3-25 mouth. ity of ITAMIN D3 00:58: [place] (VITAMIN 08 Medical D-3 ORAL) Branch oxyCODONE-a 2020-0 Yes 1{tbl} Take 1 [place] cetaminophe 3-25 tablet by ity of n 7.5-325 00:58: mouth 2 [place] mg per 08 (two) Medical tablet times Branch daily as needed for Pain. levothyroxi 2019- 2020- No [id number] 50ug Take 1 [facility] ne 50 mcg 3-25 04-25 tablet by ity of tablet 00:00: 04:59 mouth [place] 00 :00 every Medical morning Branch for 30 days. levothyroxi 2019- 2020- No [id number] 50ug Take 1 [facility] ne 50 mcg 3-25 04-25 tablet by ity of tablet 00:00: 04:59 mouth [place] 00 :00 every Medical morning Branch for 30 days. levothyroxi 2019-0 2020- No [id number] 50ug Take 1 [facility] ne 50 mcg 3-25 04-25 tablet by ity of tablet 00:00: 04:59 mouth [place] 00 :00 every Medical morning Branch for 30 days. levothyroxi 2019-0 2020- No [id number] 50ug Take 1 [facility] ne 50 mcg 3-25 04-25 tablet by ity of tablet 00:00: 04:59 mouth [place] 00 :00 every Medical morning Branch for 30 days. levothyroxi 2019-0 2020- No [id number] 50ug Take 1 [facility] ne 50 mcg 3-25 04-25 tablet by ity of tablet 00:00: 04:59 mouth [place] 00 :00 every Medical morning Branch for 30 days. levothyroxi 2019- 2020- No [id number] 50ug Take 1 [facility] ne 50 mcg 3-25 04-25 tablet by ity of tablet 00:00: 04:59 mouth [place] 00 :00 every Medical morning Branch for 30 days. levothyroxi 2020-0 2020- No [id number] 50ug Take 1 [facility] ne 50 mcg 3-25 04-25 tablet by ity of tablet 00:00: 04:59 mouth [place] 00 :00 every Medical morning Branch for 30 days. levothyroxi 2020-0 2020- No [id number] 50ug Take 1 [facility] ne 50 mcg 3-25 04-20 tablet by ity of tablet 00:00: 00:00 mouth [place] 00 :00 every Medical morning Branch for 30 days. METFORMIN 2020-0 Yes [id number] TAKE 1 [place] ER 500 mg 3-24 TABLET BY ity o f 24 hr 00:00: MOUTH [place] tablet 00 EVERY DAY Medical WITH Branch BREAKFAST METFORMIN 2020-0 Yes [id number] TAKE 1 [place] 500 mg 3-24 TABLET BY ity o f 24 hr 00:00: MOUTH [place] tablet 00 EVERY DAY Medical WITH Branch BREAKFAST METFORMIN 2020-0 Yes [id number] TAKE 1 [place] 500 mg 3-24 TABLET BY ity o f 24 hr 00:00: MOUTH [place] tablet 00 EVERY DAY Medical WITH Branch BREAKFAST METFORMIN 2020-0 Yes [id number] TAKE 1 [place] 500 mg 3-24 TABLET BY ity o f 24 hr 00:00: MOUTH [place] tablet 00 EVERY DAY Medical WITH Branch BREAKFAST METFORMIN 2020-0 Yes [id number] TAKE 1 [place] 500 mg 3-24 TABLET BY ity o f 24 hr 00:00: MOUTH [place] tablet 00 EVERY DAY Medical WITH Branch BREAKFAST METFORMIN 2020-0 Yes [id number] TAKE 1 [place] 500 mg 3-24 TABLET BY ity o f 24 hr 00:00: MOUTH [place] tablet 00 EVERY DAY Medical WITH Branch BREAKFAST METFORMIN 2020-0 Yes [id number] TAKE 1 [place] 500 mg 3-24 TABLET BY ity o f 24 hr 00:00: MOUTH [place] tablet 00 EVERY DAY Medical WITH Branch BREAKFAST METFORMIN 2020-0 Yes [id number] TAKE 1 [place] 500 mg 3-24 TABLET BY ity o f 24 hr 00:00: MOUTH [place] tablet 00 EVERY DAY Medical WITH Branch BREAKFAST METFORMIN 2020-0 Yes [id number] TAKE 1 [place] 500 mg 3-24 TABLET BY ity o f 24 hr 00:00: MOUTH [place] tablet 00 EVERY DAY Medical WITH Branch BREAKFAST METFORMIN 2020-0 Yes [id number] TAKE 1 [place] 500 mg 3-24 TABLET BY ity o f 24 hr 00:00: MOUTH [place] tablet 00 EVERY DAY Medical WITH Branch BREAKFAST METFORMIN 2020-0 Yes [id number] TAKE 1 [place] 500 mg 3-24 TABLET BY ity o f 24 hr 00:00: MOUTH [place] tablet 00 EVERY DAY Medical WITH Branch BREAKFAST METFORMIN 2020-0 Yes [id number] TAKE 1 [place] 500 mg 3-24 TABLET BY ity o f 24 hr 00:00: MOUTH [place] tablet 00 EVERY DAY Medical WITH Branch BREAKFAST METFORMIN 2020-0 Yes [id number] TAKE 1 [place] 500 mg 3-24 TABLET BY ity o f 24 hr 00:00: MOUTH [place] tablet 00 EVERY DAY Medical WITH Branch BREAKFAST METFORMIN 2020-0 Yes [id number] TAKE 1 [place] 500 mg 3-24 TABLET BY ity o f 24 hr 00:00: MOUTH [place] tablet 00 EVERY DAY Medical WITH Branch BREAKFAST METFORMIN 2020-0 Yes [id number] TAKE 1 [place] 500 mg 3-24 TABLET BY ity o f 24 hr 00:00: MOUTH [place] tablet 00 EVERY DAY Medical WITH Branch BREAKFAST METFORMIN 2020-0 Yes [id number] TAKE 1 [place] 500 mg 3-24 TABLET BY ity o f 24 hr 00:00: MOUTH [place] tablet 00 EVERY DAY Medical WITH Branch BREAKFAST METFORMIN 2020-0 Yes [id number] TAKE 1 [place] 500 mg 3-24 TABLET BY ity o f 24 hr 00:00: MOUTH [place] tablet 00 EVERY DAY Medical WITH Branch BREAKFAST METFORMIN 2020-0 Yes [id number] TAKE 1 [place] 500 mg 3-24 TABLET BY ity o f 24 hr 00:00: MOUTH [place] tablet 00 EVERY DAY Medical WITH Branch BREAKFAST METFORMIN 2020-0 Yes [id number] TAKE 1 [place] 500 mg 3-24 TABLET BY ity o f 24 hr 00:00: MOUTH [place] tablet 00 EVERY DAY Medical WITH Branch BREAKFAST METFORMIN 2020-0 Yes [id number] TAKE 1 [place] 500 mg 3-24 TABLET BY ity o f 24 hr 00:00: MOUTH [place] tablet 00 EVERY DAY Medical WITH Branch BREAKFAST METFORMIN 2020-0 Yes [id number] TAKE 1 [place] 500 mg 3-24 TABLET BY ity o f 24 hr 00:00: MOUTH [place] tablet 00 EVERY DAY Medical WITH Branch BREAKFAST METFORMIN 2020-0 Yes [id number] TAKE 1 [place] 500 mg 3-24 TABLET BY ity o f 24 hr 00:00: MOUTH [place] tablet 00 EVERY DAY Medical WITH Branch BREAKFAST METFORMIN 2020-0 Yes [id number] TAKE 1 [place] 500 mg 3-24 TABLET BY ity o f 24 hr 00:00: MOUTH [place] tablet 00 EVERY DAY Medical WITH Branch BREAKFAST METFORMIN 2020-0 Yes [id number] TAKE 1 [place] 500 mg 3-24 TABLET BY ity o f 24 hr 00:00: MOUTH [place] tablet 00 EVERY DAY Medical WITH Branch BREAKFAST METFORMIN 2020-0 Yes [id number] TAKE 1 [place] 500 mg 3-24 TABLET BY ity o f 24 hr 00:00: MOUTH [place] tablet 00 EVERY DAY Medical WITH Branch BREAKFAST METFORMIN 2020-0 Yes [id number] TAKE 1 [place] 500 mg 3-24 TABLET BY ity o f 24 hr 00:00: MOUTH [place] tablet 00 EVERY DAY Medical WITH Branch BREAKFAST METFORMIN 2020-0 Yes [id number] TAKE 1 [place] 500 mg 3-24 TABLET BY ity o f 24 hr 00:00: MOUTH [place] tablet 00 EVERY DAY Medical WITH Branch BREAKFAST METFORMIN 2020-0 Yes [id number] TAKE 1 [place] 500 mg 3-24 TABLET BY ity o f 24 hr 00:00: MOUTH [place] tablet 00 EVERY DAY Medical WITH Branch BREAKFAST METFORMIN 2020-0 Yes [id number] TAKE 1 [place] 500 mg 3-24 TABLET BY ity o f 24 hr 00:00: MOUTH [place] tablet 00 EVERY DAY Medical WITH Branch BREAKFAST METFORMIN 2020-0 Yes [id number] TAKE 1 [place] 500 mg 3-24 TABLET BY ity o f 24 hr 00:00: MOUTH [place] tablet 00 EVERY DAY Medical WITH Branch BREAKFAST METFORMIN 2020-0 Yes [id number] TAKE 1 [place] 500 mg 3-24 TABLET BY ity o f 24 hr 00:00: MOUTH [place] tablet 00 EVERY DAY Medical WITH Branch BREAKFAST METFORMIN 2020-0 Yes [id number] TAKE 1 [place] 500 mg 3-24 TABLET BY ity o f 24 hr 00:00: MOUTH [place] tablet 00 EVERY DAY Medical WITH Branch BREAKFAST METFORMIN 2020-0 Yes [id number] TAKE 1 [place] 500 mg 3-24 TABLET BY ity o f 24 hr 00:00: MOUTH [place] tablet 00 EVERY DAY Medical WITH Branch BREAKFAST METFORMIN 2020-0 Yes [id number] TAKE 1 [place] 500 mg 3-24 TABLET BY ity o f 24 hr 00:00: MOUTH [place] tablet 00 EVERY DAY Medical WITH Branch BREAKFAST METFORMIN 2020-0 Yes [id number] TAKE 1 [place] 500 mg 3-24 TABLET BY ity o f 24 hr 00:00: MOUTH [place] tablet 00 EVERY DAY Medical WITH Branch BREAKFAST METFORMIN 2020-0 Yes [id number] TAKE 1 [place] 500 mg 3-24 TABLET BY ity o f 24 hr 00:00: MOUTH [place] tablet 00 EVERY DAY Medical WITH Branch BREAKFAST METFORMIN 2020-0 Yes [id number] TAKE 1 [place] 500 mg 3-24 TABLET BY ity o f 24 hr 00:00: MOUTH [place] tablet 00 EVERY DAY Medical WITH Branch BREAKFAST METFORMIN 2020-0 Yes [id number] TAKE 1 [place] 500 mg 3-24 TABLET BY ity o f 24 hr 00:00: MOUTH [place] tablet 00 EVERY DAY Medical WITH Branch BREAKFAST METFORMIN 2020-0 Yes [id number] TAKE 1 [place] 500 mg 3-24 TABLET BY ity o f 24 hr 00:00: MOUTH [place] tablet 00 EVERY DAY Medical WITH Branch BREAKFAST METFORMIN 2020-0 2020- No [id number] TAKE 1 U [facility] [place] 500 mg 3-24 10-05 TABLET BY ity of 24 hr 00:00: 00:00 MOUTH [place] tablet 00 :00 EVERY DAY Medical WITH Branch BREAKFAST METFORMIN 2020-0 2020- No [id number] TAKE 1 U [facility] ER 500 mg 3-24 10-05 TABLET BY ity of 24 hr 00:00: 00:00 MOUTH [place] tablet 00 :00 EVERY DAY Medical WITH Branch BREAKFAST apixaban 5 2020-0 2020- No [id number] 5mg Take 1 Univ ers mg tablet -10 03- tablet by ity of 00:00: 04:59 mouth 2 [place] 00 :00 (two) Medical times [place] daily for 90 days. Then decrease dose to 5 mg bid for 180 days Indication s: treatment to prevent a blood clot in the lung apixaban 5 2020-0 2020- No 1293 5mg Take 1 Univ ers mg tablet 3-24 -23 tablet by ity of 00:00: 04:59 mouth 2 [place] 00 :00 (two) Medical times [place] daily for 90 days. Then decrease dose [...] 5mg Take 1 Univ ers mg tablet 12-0814 tablet by ity of 00:00: 00:00 mouth 2 [place] 00 :00 (two) Medical times Branch daily for 90 days. Then decrease dose to 5 mg bid for 180 days Indication s: treatment to prevent a blood clot in the lung levoFLOXaci 2019-2019- No [id number] 500mg Take 1 [facility] n 500 mg -08 12-30 tablet by ity o f tablet 00:00: 04:59 mouth [place] 00 :00 every 24 Medical (twenty- Branch ur) hours for 5 days. levoFLOXaci 2019- 2020- No [id number] 500mg Take 1 [facility] n 500 mg 3-08 12-30 tablet by ity o f tablet 00:00: 04:59 mouth [place] 00 :00 every 24 Medical (twenty- Branch ur) hours for 5 days. levoFLOXaci 2019-0 2020- No [id number] 500mg Take 1 [facility] n 500 mg -08 12-30 tablet by ity o f tablet 00:00: 04:59 mouth [place] 00 :00 every 24 Medical ( [place] ur) hours for 5 days. levoFLOXaci 2020- No [id number] 500mg Take 1 [facility] n 500 mg -08 12-30 tablet by ity o f tablet 00:00: 04:59 mouth [place] 00 :00 every 24 Medical ( [place] ur) hours for 5 days. oxyCODONE-a 2019-0 Yes 1{tbl} Take 1 [place] cetaminophe 3-23 tablet by ity of n 7.5-325 03:06: mouth 2 [place] mg per 26 (two) Medical tablet times [place] daily as needed for Pain. oxyCODONE-a 0 Yes 1{tbl} 1 tablet, Univers cetaminophe 3-23 Oral, ity of n 03:06: Q6HPRN, [place] (PERCOCET) 13 Starting Medic al 5-325 mg [facility] per tablet 12/07/19 at 1 tablet 2206, Until Discontinu ed, Pain (scale 7-10) traZODone Yes 100mg 100 mg, Univ ers (DESYREL) 3-23 Oral, QHS, ity of tablet 100 02:00: First dose [place] mg 00 on [facility] 12/07/19 at Branch 2100, Until Discontinu ed, Routine levoFLOXaci 0 Yes 750mg 750 mg, IV Univers n in D5W 12-06 Piggyback, ity o f (LEVAQUIN) 18:45: Q24H ABX, [place] mg/150 00 First dose Med ical mL on [facility] Piggyback 12/07/19 at 750 mg 1345, Until Discontinu ed, 150 mL
R lan for Anti-Infec tive: Empiric Therapy for Suspected Infection< br>Empiric Therapy Site: Urine
D uration of therapy: 7 days heparin 2019-0 2020- No 1300U/h at 13 Unive rs 25,000 - 03-24 mL/hr, ity of unit/250 mL 15:00: 22:04 1,300 [place] (Premixed 00 :19 Units/hr Medica l Bag) in (13 Branch 0.45 % NS mL/hr), IV Infusion, CONTINUOUS , Starting Sun12/07/19 at 1000, Until Sun12/09/19 at 1704, Routine triamterene 2020-0 Yes 1{tbl} 1 tablet, Univers -hydrochlor 12-06 Oral, ity of othiazid 14:00: DAILY, [place] (MAXZIDE-25 00 First dose Me dical ) 37.5-25 on [place] Branch mg tablet 1 12/07/19 at tablet 0900, Until Discontinu ed, Routine amLODIPine 2020-0 Yes 2.5mg 2.5 mg, Uni vers (NORVASC) 12-06 Oral, ity of tablet 2.5 14:00: DAILY, [place] mg 00 First dose Medical on [place] Branch 12/07/19 at 0900, Until Discontinu ed, Routine Sliding 2020-0 Yes Subcutaneo Univ ers Scale 12-06 us, TID ity of Insulin - 13:00: MEALS+HS, [place] as Aspart 00 First dose Medical (NOVOLOG) + on [place] [facility] Fsbg 12/07/19 at Testing 0800, Until [...] injection 32 Starting Medica l 25 mL [facility] 12/07/19 at 0524, Until Discontinu ed, BASIL, Blood Glucose < or = 70 mg/dL and patient is unable to swallow or has mental status changes. CYCLOSPORIN 2020-[address] in [place] E (RESTASIS 12-06 each eye. ity of OPHTHALMIC) 10:23: Medical Branch ASCORBATE 2020-0 Yes Take by [facility] rs CALCIUM 12-06 mouth. ity of (VITAMIN C 10:23: [place] ORAL) Medical Branch DOCOSAHEXAN 2020-0 Yes Take by Uni vers OIC 12-06 mouth. ity of ACID/EPA 10:23: [place] (FISH OIL Medical ORAL) Branch vitamin E 2020-0 Yes 1000U Take 1,000 U nivers 1,000 unit 12-06 Units by ity o f capsule 10:23: mouth [place] 27 daily. Medical Branch Magnesium 2020-0 Yes Take by [facility] rs 250 mg Tab 12-06 mouth. ity of 10:23: Medical Branch vitamin B-6 2020-0 Yes 100mg Take 100 U nivers (VITAMIN 3-22 mg by ity of B-6) 100 mg 10:23: mouth [place] tablet 27 daily. Medical Branch CALCIUM 2020-0 Yes Take by [facility] CARBONATE/V 12-06 mouth. ity of ITAMIN D3 10:23: [place] (VITAMIN 27 Medical D-3 ORAL) Branch albuterol-i 2020-0 Yes 1{puff} 1 Puff, [facility] pratropium 12-06 Inhalation ity of (COMBIVENT 10:20: , Q6HPRN, [place] RESPIMAT) 41 Starting Medica l 20-100 [facility] mcg/actuati 12/07/19 at on inhaler 0520, 1 Puff Until Discontinu ed, Routine, Wheezing, Shortness of Breath hydralAZINE 2020-0 Yes 10mg 10 mg, Univ ers (APRESOLINE 3-22 Intravenou it y of ) injection 05:40: s, Q6HPRN, [place] 10 mg 38 Starting [facility] 12/07/19 at 0040, Until Discontinu ed, Routine, Hypertensi on acetaminoph 2020-0 Yes 650mg 650 mg, [place] en 322 Oral, ity of (TYLENOL) 05:40: Q6HPRN, [place] tablet 650 19 Starting Medic al mg [facility] 12/07/19 at 0040, Until Discontinu ed, Routine, Pain (scale 1-3), Temp > 38.5 C ondansetron 2019-0 Yes 4mg 4 mg, Slow Univers (ZOFRAN 12-06 IV Push, ity of (PF)) 05:22: Q6HPRN, [place] injection 4 26 Starting Medi kacey mg [facility] 12/07/19 at 0022, Until Discontinu ed, Routine, Nausea and Vomiting (N/V) traMADol 2019-0 2020- No 50mg 50 mg, Univer s (ULTRAM) 12-06 Oral, ity of tablet 50 05:22: 05:21 [place]PRN[place] 21 :21 Starting [facility] 12/07/19 at 0022, Until 12/09/19 at 0021, Routine, Pain (scale 4-6) alcaftadine 2019-[address] in [place] (LASTACAFT) 3- each eye. ity of 0.25 % Drop 03:51: [place] 00 Medical Branch heparin 2019-0 2020- No 1300U/h 1,300 Unive rs 25,000 12-06 Units/hr ity of unit/250 mL 03:45: 10:06 (13 [place] (Premixed 00 :17 mL/hr), IV Medi kacey Bag) in Infusion, Branch NaCl 0.45 % CONTINUOUS weight , Starting based Sat dosing 12/06/19 at DVT/PE 2245, protocol Until [place] 12/07/19 at 0506 heparin 2020-0 2020- No 5000U 5,000 Univers 1000 12-06 Units, IV ity of unit/mL 03:45: 03:45 Push, [place] injection 00 :00 ONCE, 1 Medical Soln 5,000 dose, Sat Bran ch Units 12/06/19 at 2245, Routine iohexol 2019-0 2020- No 120mL 120 mL, Unive rs (OMNIPAQUE 3-22 - Intravenou it y of 350 02:45: 02:45 s, ONCE, 1 [place] BULK-150 00 :00 dose, Sat Medica l mL) 12/06/19 at [place] injection 2144, 120 mL Routine ipratropium 2020-0 2020- No [...] 250 mg 2-29 ity of tablet 00:00: 00 Medical Branch predniSONE 2020-0 Yes 60mg Take 60 mg U nivers 20 mg 2-29 by mouth ity of tablet 00:00: every [place] 00 morning. Medical Branch cefpodoxime 2020-0 Yes 200mg Take 200 U nivers 200 mg 2-29 mg by ity of tablet 00:00: mouth 2 00 (two) Medical times Branch daily. azithromyci 2020-0 Yes Univer s n 250 mg 2-29 ity of tablet 00:00: [place] 00 Medical Branch predniSONE 2020-0 Yes 60mg Take 60 mg U nivers 20 mg 2-29 by mouth ity of tablet 00:00: every [place] 00 morning. Medical Branch cefpodoxime 2020-0 Yes 200mg Take 200 U nivers 200 mg 2-29 mg by ity of tablet 00:00: mouth 2 [place] (two) Medical times Branch daily. azithromyci 2020-0 Yes Univer s n 250 mg 2-29 ity of tablet 00:00: [place] 00 Medical Branch predniSONE 2020-0 Yes 60mg Take 60 mg U nivers 20 mg 2-29 by mouth ity of tablet 00:00: every [place] 00 morning. Medical Branch cefpodoxime 2020-0 Yes 200mg Take 200 U nivers 200 mg 2-29 mg by ity of tablet 00:00: mouth 2 [place] (two) Medical times Branch daily. azithromyci 2020-0 Yes Univer s n 250 mg 2-29 ity of tablet 00:00: [place] 00 Medical Branch predniSONE 2020-0 Yes 60mg Take 60 mg U nivers 20 mg 2-29 by mouth ity of tablet 00:00: every [place] 00 morning. Medical Branch cefpodoxime 2020-0 Yes 200mg Take 200 U nivers 200 mg 2-29 mg by ity of tablet 00:00: mouth 2 [place] (two) Medical times Branch daily. azithromyci 2020-0 Yes Univer s n 250 mg 2-29 ity of tablet 00:00: [place] 00 Medical Branch predniSONE 2020-0 Yes 60mg Take 60 mg U nivers 20 mg 2-29 by mouth ity of tablet 00:00: every [place] 00 morning. Medical Branch cefpodoxime 2020-0 Yes 200mg Take 200 U nivers 200 mg 2-29 mg by ity of tablet 00:00: mouth 2 [place] (two) Medical times Branch daily. azithromyci 2020-0 Yes Univer s n 250 mg 2-29 ity of tablet 00:00: [place] 00 Medical Branch predniSONE 2020-0 Yes 60mg Take 60 mg U nivers 20 mg 2-29 by mouth ity of tablet 00:00: every [place] 00 morning. Medical Branch cefpodoxime 2020-0 Yes 200mg Take 200 U nivers 200 mg 2-29 mg by ity of tablet 00:00: mouth 2 [place] (two) Medical times Branch daily. azithromyci 2020-0 Yes Univer s n 250 mg 2-29 ity of tablet 00:00: [place] 00 Medical Branch predniSONE 2020-0 Yes 60mg Take 60 mg U nivers 20 mg 2-29 by mouth ity of tablet 00:00: every [place] 00 morning. Medical Branch cefpodoxime 2020-0 Yes 200mg Take 200 U nivers 200 mg 2-29 mg by ity of tablet 00:00: mouth 2 [place] (two) Medical times Branch daily. azithromyci 2020-0 Yes Univer s n 250 mg 2-29 ity of tablet 00:00: [place] 00 Medical Branch predniSONE 2020-0 Yes 60mg Take 60 mg U nivers 20 mg 2-29 by mouth ity of tablet 00:00: every [place] 00 morning. Medical Branch cefpodoxime 2020-0 Yes 200mg Take 200 U nivers 200 mg 2-29 mg by ity of tablet 00:00: mouth 2 [place] (two) Medical times Branch daily. azithromyci 2020-0 Yes Univer s n 250 mg 2-29 ity of tablet 00:00: [place] 00 Medical Branch predniSONE 2020-0 Yes 60mg Take 60 mg U nivers 20 mg 2-29 by mouth ity of tablet 00:00: every [place] 00 morning. Medical Branch cefpodoxime 2020-0 Yes 200mg Take 200 U nivers 200 mg 2-29 mg by ity of tablet 00:00: mouth 2 [place] (two) Medical times Branch daily. azithromyci 2020-0 Yes Univer s n 250 mg 2-29 ity of tablet 00:00: [place] 00 Medical Branch predniSONE 2020-0 Yes 60mg Take 60 mg U nivers 20 mg 2-29 by mouth ity of tablet 00:00: every [place] 00 morning. Medical Branch cefpodoxime 2020-0 Yes 200mg Take 200 U nivers 200 mg 2-29 mg by ity of tablet 00:00: mouth 2 [place] (two) Medical times Branch daily. azithromyci 2020-0 Yes Univer s n 250 mg 2-29 ity of tablet 00:00: [place] 00 Medical Branch predniSONE 2020-0 Yes 60mg Take 60 mg U nivers 20 mg 2-29 by mouth ity of tablet 00:00: every [place] 00 morning. Medical Branch cefpodoxime 2020-0 Yes 200mg Take 200 U nivers 200 mg 2-29 mg by ity of tablet 00:00: mouth 2 [place] (two) Medical times Branch daily. azithromyci 2020-0 Yes Univer s n 250 mg 2-29 ity of tablet 00:00: [place] 00 Medical Branch predniSONE 2020-0 Yes 60mg Take 60 mg U nivers 20 mg 2-29 by mouth ity of tablet 00:00: every [place] 00 morning. Medical Branch cefpodoxime 2020-0 Yes 200mg Take 200 U nivers 200 mg 2-29 mg by ity of tablet 00:00: mouth 2 [place] (two) Medical times Branch daily. azithromyci 2020-0 Yes Univer s n 250 mg 2-29 ity of tablet 00:00: [place] 00 Medical Branch predniSONE 2020-0 Yes 60mg Take 60 mg U nivers 20 mg 2-29 by mouth ity of tablet 00:00: every [place] 00 morning. Medical Branch cefpodoxime 2020-0 Yes 200mg Take 200 U nivers 200 mg 2-29 mg by ity of tablet 00:00: mouth 2 [place] (two) Medical times Branch daily. azithromyci 2020-0 Yes Univer s n 250 mg 2-29 ity of tablet 00:00: [place] 00 Medical Branch predniSONE 2020-0 Yes 60mg Take 60 mg U nivers 20 mg 2-29 by mouth ity of tablet 00:00: every [place] 00 morning. Medical Branch cefpodoxime 2020-0 Yes 200mg Take 200 U nivers 200 mg 2-29 mg by ity of tablet 00:00: mouth 2 [place] (two) Medical times Branch daily. azithromyci 2020-0 Yes Univer s n 250 mg 2-29 ity of tablet 00:00: [place] 00 Medical Branch predniSONE 2020-0 Yes 60mg Take 60 mg U nivers 20 mg 2-29 by mouth ity of tablet 00:00: every [place] 00 morning. Medical Branch cefpodoxime 2020-0 Yes 200mg Take 200 U nivers 200 mg 2-29 mg by ity of tablet 00:00: mouth 2 [place] (two) Medical times Branch daily. azithromyci 2020-0 Yes Univer s n 250 mg 2-29 ity of tablet 00:00: [place] 00 Medical Branch predniSONE 2020-0 Yes 60mg Take 60 mg U nivers 20 mg 2-29 by mouth ity of tablet 00:00: every [place] 00 morning. Medical Branch cefpodoxime 2020-0 Yes 200mg Take 200 U nivers 200 mg 2-29 mg by ity of tablet 00:00: mouth 2 [place] (two) Medical times Branch daily. azithromyci 2020-0 Yes Univer s n 250 mg 2-29 ity of tablet 00:00: [place] 00 Medical Branch predniSONE 2020-0 Yes 60mg Take 60 mg U nivers 20 mg 2-29 by mouth ity of tablet 00:00: every [place] 00 morning. Medical Branch cefpodoxime 2020-0 Yes 200mg Take 200 U nivers 200 mg 2-29 mg by ity of tablet 00:00: mouth 2 [place] (two) Medical times Branch daily. azithromyci 2020-0 Yes Univer s n 250 mg 2-29 ity of tablet 00:00: [place] 00 Medical Branch predniSONE 2020-0 Yes 60mg Take 60 mg U nivers 20 mg 2-29 by mouth ity of tablet 00:00: every [place] 00 morning. Medical Branch cefpodoxime 2020-0 Yes 200mg Take 200 U nivers 200 mg 2-29 mg by ity of tablet 00:00: mouth 2 [place] (two) Medical times Branch daily. azithromyci 2020-0 Yes Univer s n 250 mg 2-29 ity of tablet 00:00: [place] 00 Medical Branch predniSONE 2020-0 Yes 60mg Take 60 mg U nivers 20 mg 2-29 by mouth ity of tablet 00:00: every [place] 00 morning. Medical Branch cefpodoxime 2020-0 Yes 200mg Take 200 U nivers 200 mg 2-29 mg by ity of tablet 00:00: mouth 2 [place] (two) Medical times Branch daily. azithromyci 2020-0 Yes Univer s n 250 mg 2-29 ity of tablet 00:00: [place] 00 Medical Branch predniSONE 2020-0 Yes 60mg Take 60 mg U nivers 20 mg 2-29 by mouth ity of tablet 00:00: every [place] 00 morning. Medical Branch azithromyci 2020-0 Yes Univer s n 250 mg 2-29 ity of tablet 00:00: [place] 00 Medical Branch predniSONE 2020-0 Yes 60mg Take 60 mg U nivers 20 mg 2-29 by mouth ity of tablet 00:00: every [place] 00 morning. Medical Branch azithromyci 2020-0 Yes Univer s n 250 mg 2-29 ity of tablet 00:00: [place] 00 Medical Branch predniSONE 2020-0 Yes 60mg Take 60 mg U nivers 20 mg 2-29 by mouth ity of tablet 00:00: every [place] 00 morning. Medical Branch azithromyci 2020-0 Yes Univer s n 250 mg 2-29 ity of tablet 00:00: [place] 00 Medical Branch predniSONE 2020-0 Yes 60mg Take 60 mg U nivers 20 mg 2-29 by mouth ity of tablet 00:00: every [place] 00 morning. Medical Branch azithromyci 2020-0 2020- No Unive rs n 250 mg -15 06-10 ity of tablet 00:00: 00:00 [place] 00 :00 Medical Branch predniSONE 2020-0 2020- No 60mg Take 60 mg Univers 20 mg -10 by mouth ity of tablet 00:00: 00:00 every [place] 00 :00 morning. Medical Branch cefpodoxime 2020-0 2020- No 200mg Take 200 Univers 200 mg 2-29 08-24 mg by ity of tablet 00:00: 00:00 mouth 2 [place] 00 :00 (two) Medical times Branch daily. cefpodoxime 2020-0 2020- No 200mg Take 200 Univers 200 mg 2-29 08-24 mg by ity of tablet 00:00: 00:00 mouth 2 [place] 00 :00 (two) Medical times Branch daily. cefpodoxime 2020-0 2020- No 200mg Take 200 Univers 200 mg 2-29 08-24 mg by ity of tablet 00:00: 00:00 mouth 2 [place] 00 :00 (two) Medical times Branch daily. albuterol 2020-0 Yes [id number] 2.5mg Inhale 3 Univers 2.5 mg /3 2-28 mL every 4 ity of mL (0.083 00:00: (four) [place] %) 00 hours as Medical nebulizer needed for Bran ch solution Wheezing or Shortness of Breath. albuterol 2020-0 Yes [id number] 2.5mg Inhale 3 Univers 2.5 mg /3 2-28 mL every 4 ity of mL (0.083 00:00: (four) [place] %) 00 hours as Medical nebulizer needed for Bran ch solution Wheezing or Shortness of Breath. albuterol 2020-0 Yes [id number] 2.5mg Inhale 3 Univers 2.5 mg /3 2-28 mL every 4 ity of mL (0.083 00:00: (four) [place] %) 00 hours as Medical nebulizer needed for Bran ch solution Wheezing or Shortness of Breath. albuterol 2020-0 Yes [id number] 2.5mg Inhale 3 Univers 2.5 mg /3 2-28 mL every 4 ity of mL (0.083 00:00: (four) [place] %) 00 hours as Medical nebulizer needed for Bran ch solution Wheezing or Shortness of Breath. albuterol 2020-0 Yes [id number] 2.5mg Inhale 3 Univers 2.5 mg /3 2-28 mL every 4 ity of mL (0.083 00:00: (four) [place] %) 00 hours as Medical nebulizer needed for Bran ch solution Wheezing or Shortness of Breath. albuterol 2020-0 Yes [id number] 2.5mg Inhale 3 Univers 2.5 mg /3 2-28 mL every 4 ity of mL (0.083 00:00: (four) [place] %) 00 hours as Medical nebulizer needed for Bran ch solution Wheezing or Shortness of Breath. albuterol 2020-0 Yes [id number] 2.5mg Inhale 3 Univers 2.5 mg /3 2-28 mL every 4 ity of mL (0.083 00:00: (four) [place] %) 00 hours as Medical nebulizer needed for Bran ch solution Wheezing or Shortness of Breath. albuterol 2020-0 Yes [id number] 2.5mg Inhale 3 Univers 2.5 mg /3 2-28 mL every 4 ity of mL (0.083 00:00: (four) [place] %) 00 hours as Medical nebulizer needed for Bran ch solution Wheezing or Shortness of Breath. albuterol 2020-0 Yes [id number] 2.5mg Inhale 3 Univers 2.5 mg /3 2-28 mL every 4 ity of mL (0.083 00:00: (four) [place] %) 00 hours as Medical nebulizer needed for Bran ch solution Wheezing or Shortness of Breath. albuterol 2020-0 Yes [id number] 2.5mg Inhale 3 Univers 2.5 mg /3 2-28 mL every 4 ity of mL (0.083 00:00: (four) [place] %) 00 hours as Medical nebulizer needed for Bran ch solution Wheezing or Shortness of Breath. albuterol 2020-0 Yes [id number] 2.5mg Inhale 3 Univers 2.5 mg /3 2-28 mL every 4 ity of mL (0.083 00:00: ([facility]) [place] %) 00 hours as Medical nebulizer needed for Bran ch solution Wheezing or Shortness of Breath. albuterol 2020-0 Yes [id number] 2.5mg Inhale 3 Univers 2.5 mg /3 2-28 mL every 4 ity of mL (0.083 00:00: ([facility]) [place] %) 00 hours as Medical nebulizer needed for Bran ch solution Wheezing or Shortness of Breath. albuterol 2020-0 Yes [id number] 2.5mg Inhale 3 Univers 2.5 mg /3 2-28 mL every 4 ity of mL (0.083 00:00: ([facility]) [place] %) 00 hours as Medical nebulizer needed for Bran ch solution Wheezing or Shortness of Breath. albuterol 2020-0 Yes [id number] 2.5mg Inhale 3 Univers 2.5 mg /3 2-28 mL every 4 ity of mL (0.083 00:00: ([facility]) [place] %) 00 hours as Medical nebulizer needed for Bran ch solution Wheezing or Shortness of Breath. albuterol 2020-0 Yes [id number] 2.5mg Inhale 3 Univers 2.5 mg /3 2-28 mL every 4 ity of mL (0.083 00:00: (four) [place] %) 00 hours as Medical nebulizer needed for Bran ch solution Wheezing or Shortness of Breath. albuterol 2020-0 Yes [id number] 2.5mg Inhale 3 Univers 2.5 mg /3 2-28 mL every 4 ity of mL (0.083 00:00: (four) [place] %) 00 hours as Medical nebulizer needed for Bran ch solution Wheezing or Shortness of Breath. albuterol 2020-0 Yes [id number] 2.5mg Inhale 3 Univers 2.5 mg /3 2-28 mL every 4 ity of mL (0.083 00:00: (four) [place] %) 00 hours as Medical nebulizer needed for Bran ch solution Wheezing or Shortness of Breath. albuterol 2020-0 Yes [id number] 2.5mg Inhale 3 Univers 2.5 mg /3 2-28 mL every 4 ity of mL (0.083 00:00: (four) [place] %) 00 hours as Medical nebulizer needed for Bran ch solution Wheezing or Shortness of Breath. albuterol 2020-0 Yes [id number] 2.5mg Inhale 3 Univers 2.5 mg /3 2-28 mL every 4 ity of mL (0.083 00:00: (four) [place] %) 00 hours as Medical nebulizer needed for Bran ch solution Wheezing or Shortness of Breath. albuterol 2020-0 Yes [id number] 2.5mg Inhale 3 Univers 2.5 mg /3 2-28 mL every 4 ity of mL (0.083 00:00: (four) [place] %) 00 hours as Medical nebulizer needed for Bran ch solution Wheezing or Shortness of Breath. albuterol 2020-0 Yes [id number] 2.5mg Inhale 3 Univers 2.5 mg /3 2-28 mL every 4 ity of mL (0.083 00:00: ([facility]) [place] %) 00 hours as Medical nebulizer needed for Bran ch solution Wheezing or Shortness of Breath. albuterol 2020-0 Yes [id number] 2.5mg Inhale 3 Univers 2.5 mg /3 2-28 mL every 4 ity of mL (0.083 00:00: (four) [place] %) 00 hours as Medical nebulizer needed for Bran ch solution Wheezing or Shortness of Breath. albuterol 2020-0 Yes [id number] 2.5mg Inhale 3 Univers 2.5 mg /3 2-28 mL every 4 ity of mL (0.083 00:00: (four) [place] %) 00 hours as Medical nebulizer needed for Bran ch solution Wheezing or Shortness of Breath. albuterol 2020-0 Yes [id number] 2.5mg Inhale 3 Univers 2.5 mg /3 2-28 mL every 4 ity of mL (0.083 00:00: (four) [place] %) 00 hours as Medical nebulizer needed for Bran ch solution Wheezing or Shortness of Breath. albuterol 2020-0 Yes [id number] 2.5mg Inhale 3 Univers 2.5 mg /3 2-28 mL every 4 ity of mL (0.083 00:00: (four) [place] %) 00 hours as Medical nebulizer needed for Bran ch solution Wheezing or Shortness of Breath. albuterol 2020-0 Yes [id number] 2.5mg Inhale 3 Univers 2.5 mg /3 2-28 mL every 4 ity of mL (0.083 00:00: (four) [place] %) 00 hours as Medical nebulizer needed for Bran ch solution Wheezing or Shortness of Breath. albuterol 2020-0 Yes [id number] 2.5mg Inhale 3 Univers 2.5 mg /3 2-28 mL every 4 ity of mL (0.083 00:00: (four) [place] %) 00 hours as Medical nebulizer needed for Bran ch solution Wheezing or Shortness of Breath. albuterol 2020-0 Yes [id number] 2.5mg Inhale 3 Univers 2.5 mg /3 2-28 mL every 4 ity of mL (0.083 00:00: (four) [place] %) 00 hours as Medical nebulizer needed for Bran ch solution Wheezing or Shortness of Breath. albuterol 2020-0 Yes [id number] 2.5mg Inhale 3 Univers 2.5 mg /3 2-28 mL every 4 ity of mL (0.083 00:00: (four) [place] %) 00 hours as Medical nebulizer needed for Bran ch solution Wheezing or Shortness of Breath. albuterol 2020-0 Yes [id number] 2.5mg Inhale 3 Univers 2.5 mg /3 2-28 mL every 4 ity of mL (0.083 00:00: (four) [place] %) 00 hours as Medical nebulizer needed for Bran ch solution Wheezing or Shortness of Breath. albuterol 2020-0 Yes [id number] 2.5mg Inhale 3 Univers 2.5 mg /3 2-28 mL every 4 ity of mL (0.083 00:00: (four) [place] %) 00 hours as Medical nebulizer needed for Bran ch solution Wheezing or Shortness of Breath. albuterol 2020-0 Yes [id number] 2.5mg Inhale 3 Univers 2.5 mg /3 2-28 mL every 4 ity of mL (0.083 00:00: (four) [place] %) 00 hours as Medical nebulizer needed for Bran ch solution Wheezing or Shortness of Breath. albuterol 2020-0 Yes [id number] 2.5mg Inhale 3 Univers 2.5 mg /3 2-28 mL every 4 ity of mL (0.083 00:00: ([facility]) [place] %) 00 hours as Medical nebulizer needed for Bran ch solution Wheezing or Shortness of Breath. albuterol 2020-0 Yes [id number] 2.5mg Inhale 3 Univers 2.5 mg /3 2-28 mL every 4 ity of mL (0.083 00:00: (four) [place] %) 00 hours as Medical nebulizer needed for Bran ch solution Wheezing or Shortness of Breath. albuterol 2020-0 Yes [id number] 2.5mg Inhale 3 Univers 2.5 mg /3 2-28 mL every 4 ity of mL (0.083 00:00: ([facility]) [place] %) 00 hours as Medical nebulizer needed for Bran ch solution Wheezing or Shortness of Breath. albuterol 2020-0 Yes [id number] 2.5mg Inhale 3 Univers 2.5 mg /3 2-28 mL every 4 ity of mL (0.083 00:00: ([facility]) [place] %) 00 hours as Medical nebulizer needed for Bran ch solution Wheezing or Shortness of Breath. albuterol 2020-0 Yes [id number] 2.5mg Inhale 3 Univers 2.5 mg /3 2-28 mL every 4 ity of mL (0.083 00:00: ([facility]) [place] %) 00 hours as Medical nebulizer needed for Bran ch solution Wheezing or Shortness of Breath. albuterol 2020-0 Yes [id number] 2.5mg Inhale 3 Univers 2.5 mg /3 2-28 mL every 4 ity of mL (0.083 00:00: ([facility]) [place] %) 00 hours as Medical nebulizer needed for Bran ch solution Wheezing or Shortness of Breath. albuterol 2020-0 Yes [id number] 2.5mg Inhale 3 Univers 2.5 mg /3 2-28 mL every 4 ity of mL (0.083 00:00: ([facility]) [place] %) 00 hours as Medical nebulizer needed for Bran ch solution Wheezing or Shortness of Breath. albuterol 2020-0 Yes [id number] 2.5mg Inhale 3 Univers 2.5 mg /3 2-28 mL every 4 ity of mL (0.083 00:00: ([facility]) [place] %) 00 hours as Medical nebulizer needed for Bran ch solution Wheezing or Shortness of Breath. albuterol 2020-0 Yes [id number] 2.5mg Inhale 3 Univers 2.5 mg /3 2-28 mL every 4 ity of mL (0.083 00:00: (four) [place] %) 00 hours as Medical nebulizer needed for Bran ch solution Wheezing or Shortness of Breath. albuterol 2020-0 Yes [id number] 2.5mg Inhale 3 Univers 2.5 mg /3 2-28 mL every 4 ity of mL (0.083 00:00: (four) [place] %) 00 hours as Medical nebulizer needed for Bran ch solution Wheezing or Shortness of Breath. albuterol 2020-0 Yes [id number] 2.5mg Inhale 3 Univers 2.5 mg /3 2-28 mL every 4 ity of mL (0.083 00:00: (four) [place] %) 00 hours as Medical nebulizer needed for Bran ch solution Wheezing or Shortness of Breath. albuterol 2020-0 Yes [id number] 2.5mg Inhale 3 Univers 2.5 mg /3 2-28 mL every 4 ity of mL (0.083 00:00: (four) [place] %) 00 hours as Medical nebulizer needed for Bran ch solution Wheezing or Shortness of Breath. albuterol 2020-0 Yes [id number] 2.5mg Inhale 3 Univers 2.5 mg /3 2-28 mL every 4 ity of mL (0.083 00:00: (four) [place] %) 00 hours as Medical nebulizer needed for Bran ch solution Wheezing or Shortness of Breath. albuterol 2020-0 Yes [id number] 2.5mg Inhale 3 Univers 2.5 mg /3 2-28 mL every 4 ity of mL (0.083 00:00: (four) [place] %) 00 hours as Medical nebulizer needed for Bran ch solution Wheezing or Shortness of Breath. albuterol 2020-0 Yes [id number] 2.5mg Inhale 3 Univers 2.5 mg /3 2-28 mL every 4 ity of mL (0.083 00:00: (four) [place] %) 00 hours as Medical nebulizer needed for Bran ch solution Wheezing or Shortness of Breath. albuterol 2020-0 Yes [id number] 2.5mg Inhale 3 Univers 2.5 mg /3 2-28 mL every 4 ity of mL (0.083 00:00: (four) [place] %) 00 hours as Medical nebulizer needed for Bran ch solution Wheezing or Shortness of Breath. albuterol 2020-0 Yes [id number] 2.5mg Inhale 3 Univers 2.5 mg /3 2-28 mL every 4 ity of mL (0.083 00:00: (four) [place] %) 00 hours as Medical nebulizer needed for Bran ch solution Wheezing or Shortness of Breath. albuterol 2020-0 Yes [id number] 2.5mg Inhale 3 Univers 2.5 mg /3 2-28 mL every 4 ity of mL (0.083 00:00: (four) [place] %) 00 hours as Medical nebulizer needed for Bran ch solution Wheezing or Shortness of Breath. albuterol 2020-0 Yes [id number] 2.5mg Inhale 3 Univers 2.5 mg /3 2-28 mL every 4 ity of mL (0.083 00:00: ([facility]) [place] %) 00 hours as Medical nebulizer needed for Bran ch solution Wheezing or Shortness of Breath. albuterol 2020-0 Yes [id number] 2.5mg Inhale 3 Univers 2.5 mg /3 2-28 mL every 4 ity of mL (0.083 00:00: ([facility]) [place] %) 00 hours as Medical nebulizer needed for Bran ch solution Wheezing or Shortness of Breath. albuterol 2020-0 Yes [id number] 2.5mg Inhale 3 Univers 2.5 mg /3 2-28 mL every 4 ity of mL (0.083 00:00: (four) [place] %) 00 hours as Medical nebulizer needed for Bran ch solution Wheezing or Shortness of Breath. albuterol 2020-0 Yes [id number] 2.5mg Inhale 3 Univers 2.5 mg /3 2-28 mL every 4 ity of mL (0.083 00:00: (four) [place] %) 00 hours as Medical nebulizer needed for Bran ch solution Wheezing or Shortness of Breath. albuterol 2020-0 Yes [id number] 2.5mg Inhale 3 Univers 2.5 mg /3 2-28 mL every 4 ity of mL (0.083 00:00: (four) [place] %) 00 hours as Medical nebulizer needed for Bran ch solution Wheezing or Shortness of Breath. albuterol 2020-0 Yes [id number] 2.5mg Inhale 3 Univers 2.5 mg /3 2-28 mL every 4 ity of mL (0.083 00:00: (four) [place] %) 00 hours as Medical nebulizer needed for Bran ch solution Wheezing or Shortness of Breath. albuterol 2020-0 Yes [id number] 2.5mg Inhale 3 [facility] 2.5 mg /3 2-28 mL every 4 ity of mL (0.083 00:00: (four) [place] %) 00 hours as Medical nebulizer needed for Bran ch solution Wheezing or Shortness of Breath. albuterol 2020-0 Yes [id number] 2.5mg Inhale 3 [facility] 2.5 mg /3 2-28 mL every 4 ity of mL (0.083 00:00: (four) [place] %) 00 hours as Medical nebulizer needed for Bran ch solution Wheezing or Shortness of Breath. albuterol 2020-0 Yes [id number] 2.5mg Inhale 3 Univers 2.5 mg /3 2-28 mL every 4 ity of mL (0.083 00:00: (four) [place] %) 00 hours as Medical nebulizer needed for Bran ch solution Wheezing or Shortness of Breath. albuterol 2020-0 Yes [id number] 2.5mg Inhale 3 Univers 2.5 mg /3 2-28 mL every 4 ity of mL (0.083 00:00: (four) [place] %) 00 hours as Medical nebulizer needed for Bran ch solution Wheezing or Shortness of Breath. albuterol 2020-0 Yes [id number] 2.5mg Inhale 3 [facility] 2.5 mg /3 2-28 mL every 4 ity of mL (0.083 00:00: (four) [place] %) 00 hours as Medical nebulizer needed for Bran ch solution Wheezing or Shortness of Breath. albuterol 2020-0 Yes [id number] 2.5mg Inhale 3 Univers 2.5 mg /3 2-28 mL every 4 ity of mL (0.083 00:00: (four) [place] %) 00 hours as Medical nebulizer needed for Bran ch solution Wheezing or Shortness of Breath. albuterol 2020-0 Yes [id number] 2.5mg Inhale 3 [facility] 2.5 mg /3 2-28 mL every 4 ity of mL (0.083 00:00: ([facility]) [place] %) 00 hours as Medical nebulizer needed for Bran ch solution Wheezing or Shortness of Breath. albuterol 2020-0 Yes [id number] 2.5mg Inhale 3 [facility] 2.5 mg /3 2-28 mL every 4 ity of mL (0.083 00:00: ([facility]) [place] %) 00 hours as Medical nebulizer needed for Bran ch solution Wheezing or Shortness of Breath. albuterol 2020-0 Yes [id number] 2.5mg Inhale 3 [facility] 2.5 mg /3 2-28 mL every 4 ity of mL (0.083 00:00: ([facility]) [place] %) 00 hours as Medical nebulizer needed for Bran ch solution Wheezing or Shortness of Breath. albuterol 2020-0 Yes [id number] 2.5mg Inhale 3 [facility] 2.5 mg /3 2-28 mL every 4 ity of mL (0.083 00:00: ([facility]) [place] %) 00 hours as Medical nebulizer needed for Bran ch solution Wheezing or Shortness of Breath. albuterol 2020-0 Yes [id number] 2.5mg Inhale 3 [facility] 2.5 mg /3 2-28 mL every 4 ity of mL (0.083 00:00: [facility] [place] %) 00 hours as Medical nebulizer needed for Bran ch solution Wheezing or Shortness of Breath. albuterol 2020-0 Yes [id number] 2.5mg Inhale 3 [facility] 2.5 mg /3 2-28 mL every 4 ity of mL (0.083 00:00: ([facility]) [place] %) 00 hours as Medical nebulizer needed for Bran ch solution Wheezing or Shortness of Breath. albuterol 2020-0 Yes [id number] 2.5mg Inhale 3 Univers 2.5 mg /3 2-28 mL every 4 ity of mL (0.083 00:00: (four) [place] %) 00 hours as Medical nebulizer needed for Bran ch solution Wheezing or Shortness of Breath. albuterol 2020-0 Yes [id number] 2.5mg Inhale 3 [facility] 2.5 mg /3 2-28 mL every 4 ity of mL (0.083 00:00: (four) [place] %) 00 hours as Medical nebulizer needed for Bran ch solution Wheezing or Shortness of Breath. albuterol 2020-0 Yes [id number] 2.5mg Inhale 3 [facility] 2.5 mg /3 2-28 mL every 4 ity of mL (0.083 00:00: (four) [place] %) 00 hours as Medical nebulizer needed for Bran ch solution Wheezing or Shortness of Breath. albuterol 2020-0 Yes [id number] 2.5mg Inhale 3 [facility] 2.5 mg /3 2-28 mL every 4 ity of mL (0.083 00:00: (four) [place] %) 00 hours as Medical nebulizer needed for Bran ch solution Wheezing or Shortness of Breath. albuterol 2020-0 Yes [id number] 2.5mg Inhale 3 [facility] 2.5 mg /3 2-28 mL every 4 ity of mL (0.083 00:00: ([facility]) [place] %) 00 hours as Medical nebulizer needed for Bran ch solution Wheezing or Shortness of Breath. albuterol 2020-0 Yes [id number] 2.5mg Inhale 3 [facility] 2.5 mg /3 2-28 mL every 4 ity of mL (0.083 00:00: ([facility]) [place] %) 00 hours as Medical nebulizer needed for Bran ch solution Wheezing or Shortness of Breath. albuterol 2020-0 Yes [id number] 2.5mg Inhale 3 [facility] 2.5 mg /3 2-28 mL every 4 ity of mL (0.083 00:00: ([facility]) [place] %) 00 hours as Medical nebulizer needed for Bran ch solution Wheezing or Shortness of Breath. albuterol 2020-0 Yes [id number] 2.5mg Inhale 3 [facility] 2.5 mg /3 2-28 mL every 4 ity of mL (0.083 00:00: (four) [place] %) 00 hours as Medical nebulizer needed for Bran ch solution Wheezing or Shortness of Breath. albuterol 2020-0 Yes [id number] 2.5mg Inhale 3 [facility] 2.5 mg /3 2-28 mL every 4 ity of mL (0.083 00:00: (four) [place] %) 00 hours as Medical nebulizer needed for Bran ch solution Wheezing or Shortness of Breath. albuterol 2020-0 Yes [id number] 2.5mg Inhale 3 [facility] 2.5 mg /3 2-28 mL every 4 ity of mL (0.083 00:00: ([facility]) [place] %) 00 hours as Medical nebulizer needed for Bran ch solution Wheezing or Shortness of Breath. albuterol 2020-0 Yes [id number] 2.5mg Inhale 3 [facility] 2.5 mg /3 2-28 mL every 4 ity of mL (0.083 00:00: ([facility]) [place] %) 00 hours as Medical nebulizer needed for Bran ch solution Wheezing or Shortness of Breath. albuterol 2020-0 Yes [id number] 2.5mg Inhale 3 [facility] 2.5 mg /3 2-28 mL every 4 ity of mL (0.083 00:00: ([facility]) [place] %) 00 hours as Medical nebulizer needed for Bran ch solution Wheezing or Shortness of Breath. albuterol 2020-0 Yes [id number] 2.5mg Inhale 3 [facility] 2.5 mg /3 2-28 mL every 4 ity of mL (0.083 00:00: ([facility]) [place] 00 hours as Medical nebulizer needed for Bran ch solution Wheezing or Shortness of Breath. albuterol 2020-0 Yes [id number] 2.5mg Inhale 3 [facility] 2.5 mg /3 2-28 mL every 4 ity of mL (0.083 00:00: ([facility]) [place] 00 hours as Medical nebulizer needed for Bran ch solution Wheezing or Shortness of Breath. albuterol 2020-0 Yes [id number] 2.5mg Inhale 3 [facility] 2.5 mg /3 2-28 mL every 4 ity of mL (0.083 00:00: (four) [place] %) 00 hours as Medical nebulizer needed for Bran ch solution Wheezing or Shortness of Breath. albuterol 2020-0 Yes [id number] 2.5mg Inhale 3 [facility] 2.5 mg /3 2-28 mL every 4 ity of mL (0.083 00:00: ([facility]) [place] 00 hours as Medical nebulizer needed for Bran ch solution Wheezing or Shortness of Breath. albuterol 2020-0 Yes [id number] 2.5mg Inhale 3 [facility] 2.5 mg /3 2-28 mL every 4 ity of mL (0.083 00:00: (four) [place] %) 00 hours as Medical nebulizer needed for Bran ch solution Wheezing or Shortness of Breath. albuterol 2020-0 Yes [id number] 2.5mg Inhale 3 [facility] 2.5 mg /3 2-28 mL every 4 ity of mL (0.083 00:00: (four) [place] %) 00 hours as Medical nebulizer needed for Bran ch solution Wheezing or Shortness of Breath. albuterol 2020-0 Yes [id number] 2.5mg Inhale 3 [facility] 2.5 mg /3 2-28 mL every 4 ity of mL (0.083 00:00: (four) [place] %) 00 hours as Medical nebulizer needed for Bran ch solution Wheezing or Shortness of Breath. albuterol 2020-0 Yes [id number] 2.5mg Inhale 3 [facility] 2.5 mg /3 2-28 mL every 4 ity of mL (0.083 00:00: (four) [place] %) 00 hours as Medical nebulizer needed for Bran ch solution Wheezing or Shortness of Breath. albuterol 2020-0 Yes [id number] 2.5mg Inhale 3 [facility] 2.5 mg /3 2-28 mL every 4 ity of mL (0.083 00:00: (four) [place] %) 00 hours as Medical nebulizer needed for Bran ch solution Wheezing or Shortness of Breath. albuterol 2020-0 Yes [id number] 2.5mg Inhale 3 [facility] 2.5 mg /3 2-28 mL every 4 ity of mL (0.083 00:00: (four) [place] %) 00 hours as Medical nebulizer needed for Bran ch solution Wheezing or Shortness of Breath. albuterol 2020-0 Yes [id number] 2.5mg Inhale 3 [facility] 2.5 mg /3 2-28 mL every 4 ity of mL (0.083 00:00: (four) [place] %) 00 hours as Medical nebulizer needed for Bran ch solution Wheezing or Shortness of Breath. albuterol 2020-0 Yes [id number] 2.5mg Inhale 3 [facility] 2.5 mg /3 2-28 mL every 4 ity of mL (0.083 00:00: (four) [place] %) 00 hours as Medical nebulizer needed for Bran ch solution Wheezing or Shortness of Breath. albuterol 2020-0 Yes [id number] 2.5mg Inhale 3 [facility] 2.5 mg /3 2-28 mL every 4 ity of mL (0.083 00:00: ([facility]) [place] %) 00 hours as Medical nebulizer needed for Bran ch solution Wheezing or Shortness of Breath. albuterol 2020-0 Yes [id number] 2.5mg Inhale 3 [facility] 2.5 mg /3 2-28 mL every 4 ity of mL (0.083 00:00: ([facility]) [place] %) 00 hours as Medical nebulizer needed for Bran ch solution Wheezing or Shortness of Breath. albuterol 2020-0 Yes [id number] 2.5mg Inhale 3 [facility] 2.5 mg /3 2-28 mL every 4 ity of mL (0.083 00:00: ([facility]) [place] %) 00 hours as Medical nebulizer needed for Bran ch solution Wheezing or Shortness of Breath. albuterol 2020-0 Yes [id number] 2.5mg Inhale 3 [facility] 2.5 mg /3 2-28 mL every 4 ity of mL (0.083 00:00: ([facility]) [place] %) 00 hours as Medical nebulizer needed for Bran ch solution Wheezing or Shortness of Breath. albuterol 2020-0 Yes [id number] 2.5mg Inhale 3 [facility] 2.5 mg /3 2-28 mL every 4 ity of mL (0.083 00:00: ([facility]) [place] 00 hours as Medical nebulizer needed for Bran ch solution Wheezing or Shortness of Breath. albuterol 2020-0 Yes [id number] 2.5mg Inhale 3 [facility] 2.5 mg /3 2-28 mL every 4 ity of mL (0.083 00:00: ([facility]) [place] %) 00 hours as Medical nebulizer needed for Bran ch solution Wheezing or Shortness of Breath. albuterol 2020-0 Yes [id number] 2.5mg Inhale 3 [facility] 2.5 mg /3 2-28 mL every 4 ity of mL (0.083 00:00: (four) [place] %) 00 hours as Medical nebulizer needed for Bran ch solution Wheezing or Shortness of Breath. albuterol 2020-0 Yes [id number] 2.5mg Inhale 3 [facility] 2.5 mg /3 2-28 mL every 4 ity of mL (0.083 00:00: (four) [place] %) 00 hours as Medical nebulizer needed for Bran ch solution Wheezing or Shortness of Breath. albuterol 2020-0 Yes [id number] 2.5mg Inhale 3 [facility] 2.5 mg /3 2-28 mL every 4 ity of mL (0.083 00:00: (four) [place] %) 00 hours as Medical nebulizer needed for Bran ch solution Wheezing or Shortness of Breath. albuterol 2020-0 Yes [id number] 2.5mg Inhale 3 [facility] 2.5 mg /3 2-28 mL every 4 ity of mL (0.083 00:00: (four) [place] %) 00 hours as Medical nebulizer needed for Bran ch solution Wheezing or Shortness of Breath. albuterol 2020-0 Yes [id number] 2.5mg Inhale 3 [facility] 2.5 mg /3 2-28 mL every 4 ity of mL (0.083 00:00: (four) [place] %) 00 hours as Medical nebulizer needed for Bran ch solution Wheezing or Shortness of Breath. albuterol 2020-0 Yes [id number] 2.5mg Inhale 3 [facility] 2.5 mg /3 2-28 mL every 4 ity of mL (0.083 00:00: (four) [place] %) 00 hours as Medical nebulizer needed for Bran ch solution Wheezing or Shortness of Breath. albuterol 2020-0 Yes [id number] 2.5mg Inhale 3 [facility] 2.5 mg /3 2-28 mL every 4 ity of mL (0.083 00:00: (four) [place] %) 00 hours as Medical nebulizer needed for Bran ch solution Wheezing or Shortness of Breath. albuterol 2020-0 Yes [id number] 2.5mg Inhale 3 [facility] 2.5 mg /3 2-28 mL every 4 ity of mL (0.083 00:00: (four) [place] %) 00 hours as Medical nebulizer needed for Bran ch solution Wheezing or Shortness of Breath. albuterol 2020-0 Yes [id number] 2.5mg Inhale 3 [facility] 2.5 mg /3 2-28 mL every 4 ity of mL (0.083 00:00: (four) [place] %) 00 hours as Medical nebulizer needed for Bran ch solution Wheezing or Shortness of Breath. albuterol 2020-0 Yes [id number] 2.5mg Inhale 3 [facility] 2.5 mg /3 2-28 mL every 4 ity of mL (0.083 00:00: ([facility]) [place] %) 00 hours as Medical nebulizer needed for Bran ch solution Wheezing or Shortness of Breath. albuterol 2020-0 Yes [id number] 2.5mg Inhale 3 [facility] 2.5 mg /3 2-28 mL every 4 ity of mL (0.083 00:00: ([facility]) [place] %) 00 hours as Medical nebulizer needed for Bran ch solution Wheezing or Shortness of Breath. albuterol 2020-0 Yes [id number] 2.5mg Inhale 3 [facility] 2.5 mg /3 2-28 mL every 4 ity of mL (0.083 00:00: ([facility]) [place] %) 00 hours as Medical nebulizer needed for Bran ch solution Wheezing or Shortness of Breath. albuterol 2020-0 Yes [id number] 2.5mg Inhale 3 [facility] 2.5 mg /3 2-28 mL every 4 ity of mL (0.083 00:00: ([facility]) [place] %) 00 hours as Medical nebulizer needed for Bran ch solution Wheezing or Shortness of Breath. albuterol 2020-0 Yes [id number] 2.5mg Inhale 3 [facility] 2.5 mg /3 2-28 mL every 4 ity of mL (0.083 00:00: (four) [place] %) 00 hours as Medical nebulizer needed for Bran ch solution Wheezing or Shortness of Breath. albuterol 2020-0 Yes [id number] 2.5mg Inhale 3 [facility] 2.5 mg /3 2-28 mL every 4 ity of mL (0.083 00:00: (four) [place] %) 00 hours as Medical nebulizer needed for Bran ch solution Wheezing or Shortness of Breath. albuterol 2020-0 Yes [id number] 2.5mg Inhale 3 [facility] 2.5 mg /3 2-28 mL every 4 ity of mL (0.083 00:00: (four) [place] %) 00 hours as Medical nebulizer needed for Bran ch solution Wheezing or Shortness of Breath. albuterol 2020-0 Yes [id number] 2.5mg Inhale 3 [facility] 2.5 mg /3 2-28 mL every 4 ity of mL (0.083 00:00: (four) [place] %) 00 hours as Medical nebulizer needed for Bran ch solution Wheezing or Shortness of Breath. albuterol 2020-0 Yes [id number] 2.5mg Inhale 3 [facility] 2.5 mg /3 2-28 mL every 4 ity of mL (0.083 00:00: (four) [place] %) 00 hours as Medical nebulizer needed for Bran ch solution Wheezing or Shortness of Breath. albuterol 2020-0 Yes [id number] 2.5mg Inhale 3 [facility] 2.5 mg /3 2-28 mL every 4 ity of mL (0.083 00:00: (four) [place] %) 00 hours as Medical nebulizer needed for Bran ch solution Wheezing or Shortness of Breath. azithromyci 2020-0 Yes [id number] 250mg Take 1 [facility] n 2-28 tablet by ity of (ZITHROMAX 00:00: mouth [place] Z-MANDO) 250 00 SEE-INSTRU Med ical mg tablet CTIONS. Branch Take 500 mg day 1, then 250 mg days 2 to 5. cefpodoxime 2020-0 Yes [id number] 200mg Take 1 [facility] 200 mg 2-28 tablet by ity of tablet 00:00: mouth 2 00 (two) Medical times Branch daily. predniSONE 2020-0 Yes [id number] 60mg Take 3 U nivers 20 mg 2-28 tablets by ity of tablet 00:00: mouth [place] 00 every Medical morning. Branch albuterol 2020-0 Yes [id number] 2.5mg Inhale 3 [facility] 2.5 mg /3 2-28 mL every 4 ity of mL (0.083 00:00: (four) [place] %) 00 hours as Medical nebulizer needed for Bran ch solution Wheezing or Shortness of Breath. azithromyci 2020-0 Yes [id number] 250mg Take 1 [facility] n 2-28 tablet by ity of (ZITHROMAX 00:00: mouth [place] Z-MANDO) 250 00 SEE-INSTRU Med ical mg tablet CTIONS. Branch Take 500 mg day 1, then 250 mg days 2 to 5. cefpodoxime 2020-0 Yes [id number] 200mg Take 1 [facility] 200 mg 2-28 tablet by ity of tablet 00:00: mouth 2 [place] 00 (two) Medical times Branch daily. predniSONE 2020-0 Yes [id number] 60mg Take 3 U nivers 20 mg 2-28 tablets by ity of tablet 00:00: mouth [place] 00 every Medical morning. Branch albuterol 2020-0 Yes [id number] 2.5mg Inhale 3 [facility] 2.5 mg /3 2-28 mL every 4 ity of mL (0.083 00:00: (four) [place] %) 00 hours as Medical nebulizer needed for Bran ch solution Wheezing or Shortness of Breath. azithromyci 2020-0 Yes [id number] 250mg Take 1 [facility] n 2-28 tablet by ity of (ZITHROMAX 00:00: mouth [place] Z-MANDO) 250 00 SEE-INSTRU Med ical mg tablet CTIONS. Branch Take 500 mg day 1, then 250 mg days 2 to 5. cefpodoxime 2020-0 Yes [id number] 200mg Take 1 [facility] 200 mg 2-28 tablet by ity of tablet 00:00: mouth 2 (two) Medical times Branch daily. predniSONE 2020-0 Yes [id number] 60mg Take 3 U nivers 20 mg 2-28 tablets by ity of tablet 00:00: mouth [place] 00 every Medical morning. Branch albuterol 2020-0 Yes [id number] 2.5mg Inhale 3 [facility] 2.5 mg /3 2-28 mL every 4 ity of mL (0.083 00:00: (four) [place] %) 00 hours as Medical nebulizer needed for Bran ch solution Wheezing or Shortness of Breath. azithromyci 2020-0 Yes [id number] 250mg Take 1 [facility] n 2-28 tablet by ity of (ZITHROMAX 00:00: mouth [place] Z-MANDO) 250 00 SEE-INSTRU Med ical mg tablet CTIONS. Branch Take 500 mg day 1, then 250 mg days 2 to 5. cefpodoxime 2020-0 Yes [id number] 200mg Take 1 [facility] 200 mg 2-28 tablet by ity of tablet 00:00: mouth 2 (two) Medical times Branch daily. predniSONE 2020-0 Yes [id number] 60mg Take 3 U nivers 20 mg 2-28 tablets by ity of tablet 00:00: mouth [place] 00 every Medical morning. Branch albuterol 2020-0 Yes [id number] 2.5mg Inhale 3 [facility] 2.5 mg /3 2-28 mL every 4 ity of mL (0.083 00:00: (four) [place] %) 00 hours as Medical nebulizer needed for Bran ch solution Wheezing or Shortness of Breath. albuterol 2020-0 Yes [id number] 2.5mg Inhale 3 [facility] 2.5 mg /3 2-28 mL every 4 ity of mL (0.083 00:00: (four) [place] %) 00 hours as Medical nebulizer needed for Bran ch solution Wheezing or Shortness of Breath. azithromyci 2020-0 2020- No [id number] 250mg Take 1 [facility] n 2-28 -24 tablet by ity of (ZITHROMAX 00:00: 00:00 mouth [place] Z-MANDO) 250 00 :00 SEE-INSTRU Med ical mg tablet CTIONS. Branch Take 500 mg day 1, then 250 mg days 2 to 5. cefpodoxime 2019-0 2020- No [id number] 200mg Take 1 [facility] 200 mg -12 12-24 tablet by ity of tablet 00:00: 00:00 mouth 2 [place] 00 :00 (two) Medical times Branch daily. predniSONE 2019-0 2020- No [id number] 60mg Take 3 [facility] 20 mg -28 -24 tablets by ity of tablet 00:00: 00:00 mouth [place] 00 :00 every Medical morning. Branch aerosol 2019-0 Yes See Admin [facility] holding 2-[address] [facility] l aerosol 2019-0 Yes See Admin Meth[facility] di holding 2-[address] [facility] 00 l albuterol 2019-0 Yes [id number] 2{puff} Inhale 2 [facility] 90 2-22 Puffs ity of mcg/actuati 00:00: every 4 [place] as on inhaler 00 (four) Medical hours as Branch needed for Wheezing or Shortness of Breath. acetaminoph 2019-0 Yes [id number] 1/2 - 1 [facility] en-codeine 2-22 tab Every ity of 300-30 mg 00:00: 4hrs as [place] tablet 00 needed for Medical pain or Branch cough requiring narcotic inhalationa 2019-0 Yes [id number] Use as [facility] l spacing 2-22 directed ity of device 00:00: [place] ([facility] 00 Medical [facility]) albuterol 2020-0 Yes [id number] 2{puff} Inhale 2 [facility] 90 2-22 Puffs ity of mcg/actuati 00:00: every 4 [place] as on inhaler 00 (four) Medical hours as Branch needed for Wheezing or Shortness of Breath. acetaminoph 2020-0 Yes [id number] 2 - 1 [facility] en-codeine 2-22 tab Every ity of 300-30 mg 00:00: 4hrs as [place] tablet 00 needed for Medical pain or Branch cough requiring narcotic inhalationa 2020-0 Yes [id number] Use as [facility] l spacing 2-22 directed ity of device 00:00: [place] [facility]ol 2020-0 Yes [id number] 2{puff} Inhale 2 [facility] 90 2-22 Puffs ity of mcg/actuati 00:00: every 4 [place] as on inhaler 00 (four) Medical hours as Branch needed for Wheezing or Shortness of Breath. acetaminoph 2020-0 Yes [id number] 2 - 1 [facility] en-codeine 2-22 tab Every ity of 300-30 mg 00:00: 4hrs as [place] tablet 00 needed for Medical pain or Branch cough requiring narcotic inhalationa 2020-0 Yes [id number] Use as [facility] l spacing 2-22 directed ity of device 00:00: [place] [facility] albuterol 2020-0 Yes [id number] 2{puff} Inhale 2 [facility] 90 2-22 Puffs ity of mcg/actuati 00:00: every 4 [place] as on inhaler 00 (four) Medical hours as Branch needed for Wheezing or Shortness of Breath. acetaminoph 2020-0 Yes [id number] 2 - 1 [facility] en-codeine 2-22 tab Every ity of 300-30 mg 00:00: 4hrs as [place] tablet 00 needed for Medical pain or Branch cough requiring narcotic inhalationa 2020-0 Yes [id number] Use as [facility] l spacing 2-22 directed ity of device 00:00: [place] [facility] albuterol 2020-0 Yes [id number] 2{puff} Inhale 2 [facility] 90 2-22 Puffs ity of mcg/actuati 00:00: every 4 [place] as on inhaler 00 (four) Medical hours as Branch needed for Wheezing or Shortness of Breath. acetaminoph 2020-0 Yes [id number] /2 - 1 [facility] en-codeine 2-22 tab Every ity of 300-30 mg 00:00: 4hrs as [place] tablet 00 needed for Medical pain or Branch cough requiring narcotic inhalationa 2020-0 Yes [id number] Use as [facility] l spacing 2-22 directed ity of device 00:00: [place] ([facility] albuterol 2020-0 Yes [id number] 2{puff} Inhale 2 [facility] 90 2-22 Puffs ity of mcg/actuati 00:00: every 4 [place] as on inhaler 00 (four) Medical hours as Branch needed for Wheezing or Shortness of Breath. albuterol 2020-0 Yes [id number] 2{puff} Inhale 2 [facility] 90 2-22 Puffs ity of mcg/actuati 00:00: every 4 [place] as on inhaler 00 (four) Medical hours as Branch needed for Wheezing or Shortness of Breath. acetaminoph 2020-0 Yes [id number] 2 - 1 [facility] en-codeine 2-22 tab Every ity of 300-30 mg 00:00: 4hrs as [place] tablet 00 needed for Medical pain or Branch cough requiring narcotic inhalationa 2020-0 Yes [id number] Use as Univers l spacing 2-22 directed ity of device 00:00: [place] ([address]) inhalationa 2020-0 Yes [id number] Use as Univers l spacing 2-22 directed ity of device 00:00: [place] ([address]) albuterol 2020-0 Yes [id number] 2{puff} Inhale 2 [facility] 90 2-22 Puffs ity of mcg/actuati 00:00: every 4 [place] as on inhaler 00 (four) Medical hours as Branch needed for Wheezing or Shortness of Breath. acetaminoph 2020-0 Yes [id number] 2 - 1 [facility] en-codeine 2-22 tab Every ity of 300-30 mg 00:00: 4hrs as [place] tablet 00 needed for Medical pain or Branch cough requiring narcotic inhalationa 2020-0 Yes [id number] Use as [facility] l spacing 2-22 directed ity of device 00:00: [place] ([address]) albuterol 2020-0 Yes [id number] 2{puff} Inhale 2 [facility] 90 2-22 Puffs ity of mcg/actuati 00:00: every 4 [place] as on inhaler 00 (four) Medical hours as Branch needed for Wheezing or Shortness of Breath. acetaminoph 2020-0 Yes [id number] 2 - 1 [facility] en-codeine 2-22 tab Every ity of 300-30 mg 00:00: 4hrs as [place] tablet 00 needed for Medical pain or Branch cough requiring narcotic inhalationa 2020-0 Yes [id number] Use as [facility] l spacing 2-22 directed ity of device 00:00: [place] albuterol 2020-0 Yes [id number] 2{puff} Inhale 2 [facility] 90 2-22 Puffs ity of mcg/actuati 00:00: every 4 [place] as on inhaler 00 (four) Medical hours as Branch needed for Wheezing or Shortness of Breath. acetaminoph 2020-0 Yes [id number] 2 - 1 [facility] en-codeine 2-22 tab Every ity of 300-30 mg 00:00: 4hrs as [place] tablet 00 needed for Medical pain or Branch cough requiring narcotic inhalationa 2020-0 Yes [id number] Use as [facility] l spacing 2-22 directed ity of device 00:00: [place] [facility] albuterol 2020-0 Yes [id number] 2{puff} Inhale 2 [facility] 90 2-22 Puffs ity of mcg/actuati 00:00: every 4 [place] as on inhaler 00 (four) Medical hours as Branch needed for Wheezing or Shortness of Breath. acetaminoph 2020-0 Yes [id number] 2 - 1 [facility] en-codeine 2-22 tab Every ity of 300-30 mg 00:00: 4hrs as [place] tablet 00 needed for Medical pain or Branch cough requiring narcotic inhalationa 2020-0 Yes [id number] Use as [facility] l spacing 2-22 directed ity of device 00:00: [place] [facility] albuterol 2020-0 Yes [id number] 2{puff} Inhale 2 [facility] 90 2-22 Puffs ity of mcg/actuati 00:00: every 4 [place] as on inhaler 00 (four) Medical hours as Branch needed for Wheezing or Shortness of Breath. acetaminoph 2020-0 Yes [id number] 2 - 1 [facility] en-codeine 2-22 tab Every ity of 300-30 mg 00:00: 4hrs as [place] tablet 00 needed for Medical pain or Branch cough requiring narcotic inhalationa 2020-0 Yes [id number] Use as Univers l spacing 2-22 directed ity of device 00:00: [place] ([facility] albuterol 2020-0 Yes [id number] 2{puff} Inhale 2 [facility] 90 2-22 Puffs ity of mcg/actuati 00:00: every 4 [place] as on inhaler 00 (four) Medical hours as Branch needed for Wheezing or Shortness of Breath. acetaminoph 2020-0 Yes [id number] 2 - 1 [facility] en-codeine 2-22 tab Every ity of 300-30 mg 00:00: 4hrs as [place] tablet 00 needed for Medical pain or Branch cough requiring narcotic inhalationa 2020-0 Yes [id number] Use as Univers l spacing 2-22 directed ity of device 00:00: [place] ([facility] albuterol 2020-0 Yes [id number] 2{puff} Inhale 2 [facility] 90 2-22 Puffs ity of mcg/actuati 00:00: every 4 [place] as on inhaler 00 (four) Medical hours as Branch needed for Wheezing or Shortness of Breath. acetaminoph 2020-0 Yes [id number] 2 - 1 [facility] en-codeine 2-22 tab Every ity of 300-30 mg 00:00: 4hrs as [place] tablet 00 needed for Medical pain or Branch cough requiring narcotic inhalationa 2020-0 Yes [id number] Use as [facility] l spacing 2-22 directed ity of device 00:00: [place] ([facility] albuterol 2020-0 Yes [id number] 2{puff} Inhale 2 [facility] 90 2-22 Puffs ity of mcg/actuati 00:00: every 4 [place] as on inhaler 00 (four) Medical hours as Branch needed for Wheezing or Shortness of Breath. acetaminoph 2020-0 Yes [id number] 2 - 1 [facility] en-codeine 2-22 tab Every ity of 300-30 mg 00:00: 4hrs as [place] tablet 00 needed for Medical pain or Branch cough requiring narcotic inhalationa 2020-0 Yes [id number] Use as [facility] l spacing 2-22 directed ity of device 00:00: [place] ([facility] albuterol 2020-0 Yes [id number] 2{puff} Inhale 2 [facility] 90 2-22 Puffs ity of mcg/actuati 00:00: every 4 [place] as on inhaler 00 (four) Medical hours as Branch needed for Wheezing or Shortness of Breath. acetaminoph 2020-0 Yes [id number] 2 - 1 [facility] en-codeine 2-22 tab Every ity of 300-30 mg 00:00: 4hrs as [place] tablet 00 needed for Medical pain or Branch cough requiring narcotic inhalationa 2020-0 Yes [id number] Use as Univers l spacing 2-22 directed ity of device 00:00: [place] ([address]) albuterol 2020-0 Yes [id number] 2{puff} Inhale 2 [facility] 90 2-22 Puffs ity of mcg/actuati 00:00: every 4 [place] as on inhaler 00 (four) Medical hours as Branch needed for Wheezing or Shortness of Breath. acetaminoph 2020-0 Yes [id number] 2 - 1 [facility] en-codeine 2-22 tab Every ity of 300-30 mg 00:00: 4hrs as [place] tablet 00 needed for Medical pain or Branch cough requiring narcotic inhalationa 2020-0 Yes [id number] Use as Univers l spacing 2-22 directed ity of device 00:00: [place] ([address]) albuterol 2020-0 Yes [id number] 2{puff} Inhale 2 [facility] 90 2-22 Puffs ity of mcg/actuati 00:00: every 4 [place] as on inhaler 00 (four) Medical hours as Branch needed for Wheezing or Shortness of Breath. acetaminoph 2020-0 Yes [id number] /2 - 1 [facility] en-codeine 2-22 tab Every ity of 300-30 mg 00:00: 4hrs as [place] tablet 00 needed for Medical pain or Branch cough requiring narcotic inhalationa 2020-0 Yes [id number] Use as Univers l spacing 2-22 directed ity of device 00:00: [place] ([facility] [facility] [place]ol [place]-0 Yes [id number] 2{puff} Inhale 2 [facility] 90 2-22 Puffs ity of mcg/actuati 00:00: every 4 [facility] as on inhaler 00 (four) Medical hours as Branch needed for Wheezing or Shortness of Breath. acetaminoph 2020-0 Yes [id number] 1/2 - 1 [facility] en-codeine 2-22 tab Every ity of 300-30 mg 00:00: 4hrs as [place] tablet 00 needed for Medical pain or Branch cough requiring narcotic inhalationa 2020-0 Yes [id number] Use as [facility] l spacing 2-22 directed ity of device 00:00: [place] [place] albuterol 2020-0 Yes [id number] 2{puff} Inhale 2 [facility] 90 2-22 Puffs ity of mcg/actuati 00:00: every 4 [facility] as on inhaler 00 (four) Medical hours as Branch needed for Wheezing or Shortness of Breath. acetaminoph 2020-0 Yes [id number] 2 - 1 [facility] en-codeine 2-22 tab Every ity of 300-30 mg 00:00: 4hrs as [place] tablet 00 needed for Medical pain or Branch cough requiring narcotic inhalationa 2020-0 Yes [id number] Use as [facility] l spacing 2-22 directed ity of device 00:00: [place] ([address]) albuterol 2020-0 Yes [id number] 2{puff} Inhale 2 [facility] 90 2-22 Puffs ity of mcg/actuati 00:00: every 4 [facility] as on inhaler 00 (four) Medical hours as Branch needed for Wheezing or Shortness of Breath. acetaminoph 2020-0 Yes [id number] 1/2 - 1 [facility] en-codeine 2-22 tab Every ity of 300-30 mg 00:00: 4hrs as [place] tablet 00 needed for Medical pain or Branch cough requiring narcotic inhalationa 2020-0 Yes [id number] Use as [facility] l spacing 2-22 directed ity of device 00:00: [place] ([facility] [place] albuterol 2020-0 Yes [id number] 2{puff} Inhale 2 [facility] 90 2-22 Puffs ity of mcg/actuati 00:00: every 4 [facility] as on inhaler 00 (four) Medical hours as Branch needed for Wheezing or Shortness of Breath. acetaminoph 2020-0 Yes [id number] 2 - 1 [facility] en-codeine 2-22 tab Every ity of 300-30 mg 00:00: 4hrs as [place] tablet 00 needed for Medical pain or Branch cough requiring narcotic inhalationa 2020-0 Yes [id number] Use as [facility] l spacing 2-22 directed ity of device 00:00: [place] ([facility] [place] albuterol 2020-0 Yes [id number] 2{puff} Inhale 2 [facility] 90 2-22 Puffs ity of mcg/actuati 00:00: every 4 [facility] as on inhaler 00 (four) Medical hours as Branch needed for Wheezing or Shortness of Breath. acetaminoph 2020-0 Yes [id number] 2 - 1 [facility] en-codeine 2-22 tab Every ity of 300-30 mg 00:00: 4hrs as [place] tablet 00 needed for Medical pain or Branch cough requiring narcotic inhalationa 2020-0 Yes [id number] Use as [facility] l spacing 2-22 directed ity of device 00:00: [place] ([facility] [place] albuterol 2020-0 Yes [id number] 2{puff} Inhale 2 [facility] 90 2-22 Puffs ity of mcg/actuati 00:00: every 4 [facility] as on inhaler 00 (four) Medical hours as Branch needed for Wheezing or Shortness of Breath. acetaminoph 2020-0 Yes [id number] 2 - 1 [facility] en-codeine 2-22 tab Every ity of 300-30 mg 00:00: 4hrs as [place] tablet 00 needed for Medical pain or Branch cough requiring narcotic inhalationa 2020-0 Yes [id number] Use as [facility] l spacing 2-22 directed ity of device 00:00: [place] ([facility] [place] albuterol 2020-0 Yes [id number] 2{puff} Inhale 2 [facility] 90 2-22 Puffs ity of mcg/actuati 00:00: every 4 [facility] as on inhaler 00 (four) Medical hours as Branch needed for Wheezing or Shortness of Breath. acetaminoph 2020-0 Yes [id number] 2 - 1 [facility] en-codeine 2-22 tab Every ity of 300-30 mg 00:00: 4hrs as [place] tablet 00 needed for Medical pain or Branch cough requiring narcotic inhalationa 2020-0 Yes [id number] Use as [facility] l spacing 2-22 directed ity of device 00:00: [place] ([address]) albuterol 2020-0 Yes [id number] 2{puff} Inhale 2 [facility] 90 2-22 Puffs ity of mcg/actuati 00:00: every 4 [facility] as on inhaler 00 (four) Medical hours as Branch needed for Wheezing or Shortness of Breath. acetaminoph 2020-0 Yes [id number] 1/2 - 1 [facility] en-codeine 2-22 tab Every ity of 300-30 mg 00:00: 4hrs as [place] tablet 00 needed for Medical pain or Branch cough requiring narcotic inhalationa 2020-0 Yes [id number] Use as [facility] l spacing 2-22 directed ity of device 00:00: [place] ([address]) albuterol 2020-0 Yes [id number] 2{puff} Inhale 2 [facility] 90 2-22 Puffs ity of mcg/actuati 00:00: every 4 [facility] as on inhaler 00 (four) Medical hours as Branch needed for Wheezing or Shortness of Breath. inhalationa 2020-0 Yes [id number] Use as [facility] l spacing 2-22 directed ity of device 00:00: [place] ([address]) albuterol 2020-0 Yes [id number] 2{puff} Inhale 2 [facility] 90 2-22 Puffs ity of mcg/actuati 00:00: every 4 [facility] as on inhaler 00 (four) Medical hours as Branch needed for Wheezing or Shortness of Breath. inhalationa 2020-0 Yes [id number] Use as [facility] l spacing 2-22 directed ity of device 00:00: [place] ([address]) albuterol 2020-0 Yes [id number] 2{puff} Inhale 2 [facility] 90 2-22 Puffs ity of mcg/actuati 00:00: every 4 [facility] as on inhaler 00 (four) Medical hours as Branch needed for Wheezing or Shortness of Breath. inhalationa 2020-0 Yes [id number] Use as [facility] l spacing 2-22 directed ity of device 00:00: [place] ([address]) albuterol 2020-0 Yes [id number] 2{puff} Inhale 2 [facility] 90 2-22 Puffs ity of mcg/actuati 00:00: every 4 [facility] as on inhaler 00 (four) Medical hours as Branch needed for Wheezing or Shortness of Breath. inhalationa 2020-0 Yes [id number] Use as [facility] l spacing 2-22 directed ity of device 00:00: [place] ([address]) albuterol 2020-0 Yes [id number] 2{puff} Inhale 2 [facility] 90 2-22 Puffs ity of mcg/actuati 00:00: every 4 [facility] as on inhaler 00 (four) Medical hours as Branch needed for Wheezing or Shortness of Breath. inhalationa 2020-0 Yes [id number] Use as [facility] l spacing 2-22 directed ity of device 00:00: [place] ([address]) albuterol 2020-0 Yes [id number] 2{puff} Inhale 2 [facility] 90 2-22 Puffs ity of mcg/actuati 00:00: every 4 [facility] as on inhaler 00 (four) Medical hours as Branch needed for Wheezing or Shortness of Breath. inhalationa 2020-0 Yes [id number] Use as [facility] l spacing 2-22 directed ity of device 00:00: [place] ([address]) albuterol 2020-0 Yes [id number] 2{puff} Inhale 2 [facility] 90 2-22 Puffs ity of mcg/actuati 00:00: every 4 [facility] as on inhaler 00 (four) Medical hours as Branch needed for Wheezing or Shortness of Breath. inhalationa 2020-0 Yes [id number] Use as [facility] l spacing 2-22 directed ity of device 00:00: [place] ([address]) albuterol 2020-0 Yes [id number] 2{puff} Inhale 2 [facility] 90 2-22 Puffs ity of mcg/actuati 00:00: every 4 [facility] as on inhaler 00 (four) Medical hours as Branch needed for Wheezing or Shortness of Breath. inhalationa 2020-0 Yes [id number] Use as [facility] l spacing 2-22 directed ity of device 00:00: [place] ([address]) albuterol 2020-0 Yes [id number] 2{puff} Inhale 2 [facility] 90 2-22 Puffs ity of mcg/actuati 00:00: every 4 [facility] as on inhaler 00 (four) Medical hours as Branch needed for Wheezing or Shortness of Breath. inhalationa 2020-0 Yes [id number] Use as [facility] l spacing 2-22 directed ity of device 00:00: [place] ([address]) albuterol 2020-0 Yes [id number] 2{puff} Inhale 2 [facility] 90 2-22 Puffs ity of mcg/actuati 00:00: every 4 [facility] as on inhaler 00 (four) Medical hours as Branch needed for Wheezing or Shortness of Breath. inhalationa 2020-0 Yes [id number] Use as [facility] l spacing 2-22 directed ity of device 00:00: [place] ([address]) albuterol 2020-0 Yes [id number] 2{puff} Inhale 2 [facility] 90 2-22 Puffs ity of mcg/actuati 00:00: every 4 [place] as on inhaler 00 (four) Medical hours as Branch needed for Wheezing or Shortness of Breath. inhalationa 2020-0 Yes [id number] Use as [facility] l spacing 2-22 directed ity of device 00:00: [place] ([address]) albuterol 2020-0 Yes [id number] 2{puff} Inhale 2 [facility] 90 2-22 Puffs ity of mcg/actuati 00:00: every 4 [facility] as on inhaler 00 (four) Medical hours as Branch needed for Wheezing or Shortness of Breath. inhalationa 2020-0 Yes [id number] Use as [facility] l spacing 2-22 directed ity of device 00:00: [place] ([address]) albuterol 2020-0 Yes [id number] 2{puff} Inhale 2 [facility] 90 2-22 Puffs ity of mcg/actuati 00:00: every 4 [facility] as on inhaler 00 (four) Medical hours as Branch needed for Wheezing or Shortness of Breath. inhalationa 2020-0 Yes [id number] Use as [facility] l spacing 2-22 directed ity of device 00:00: [place] ([address]) albuterol 2020-0 Yes [id number] 2{puff} Inhale 2 [facility] 90 2-22 Puffs ity of mcg/actuati 00:00: every 4 [facility] as on inhaler 00 (four) Medical hours as Branch needed for Wheezing or Shortness of Breath. inhalationa 2020-0 Yes [id number] Use as [facility] l spacing 2-22 directed ity of device 00:00: [place] ([address]) albuterol 2020-0 Yes [id number] 2{puff} Inhale 2 [facility] 90 2-22 Puffs ity of mcg/actuati 00:00: every 4 [facility] as on inhaler 00 (four) Medical hours as Branch needed for Wheezing or Shortness of Breath. inhalationa 2020-0 Yes [id number] Use as [facility] l spacing 2-22 directed ity of device 00:00: [place] ([address]) albuterol 2020-0 Yes [id number] 2{puff} Inhale 2 [facility] 90 2-22 Puffs ity of mcg/actuati 00:00: every 4 [facility] as on inhaler 00 (four) Medical hours as Branch needed for Wheezing or Shortness of Breath. inhalationa 2020-0 Yes [id number] Use as [facility] l spacing 2-22 directed ity of device 00:00: [place] ([address]) albuterol 2020-0 Yes [id number] 2{puff} Inhale 2 [facility] 90 2-22 Puffs ity of mcg/actuati 00:00: every 4 [facility] as on inhaler 00 (four) Medical hours as Branch needed for Wheezing or Shortness of Breath. inhalationa 2020-0 Yes [id number] Use as [facility] l spacing 2-22 directed ity of device 00:00: [place] ([address]) albuterol 2020-0 Yes [id number] 2{puff} Inhale 2 [facility] 90 2-22 Puffs ity of mcg/actuati 00:00: every 4 [facility] as on inhaler 00 (four) Medical hours as Branch needed for Wheezing or Shortness of Breath. inhalationa 2020-0 Yes [id number] Use as [facility] l spacing 2-22 directed ity of device 00:00: [place] ([address]) albuterol 2020-0 Yes [id number] 2{puff} Inhale 2 [facility] 90 2-22 Puffs ity of mcg/actuati 00:00: every 4 [facility] as on inhaler 00 (four) Medical hours as Branch needed for Wheezing or Shortness of Breath. inhalationa 2020-0 Yes [id number] Use as [facility] l spacing 2-22 directed ity of device 00:00: [place] ([address]) albuterol 2020-0 Yes [id number] 2{puff} Inhale 2 [facility] 90 2-22 Puffs ity of mcg/actuati 00:00: every 4 [facility] as on inhaler 00 (four) Medical hours as Branch needed for Wheezing or Shortness of Breath. inhalationa 2020-0 Yes [id number] Use as [facility] l spacing 2-22 directed ity of device 00:00: [place] ([address]) albuterol 2020-0 Yes [id number] 2{puff} Inhale 2 [facility] 90 2-22 Puffs ity of mcg/actuati 00:00: every 4 [facility] as on inhaler 00 (four) Medical hours as Branch needed for Wheezing or Shortness of Breath. inhalationa 2020-0 Yes [id number] Use as [facility] l spacing 2-22 directed ity of device 00:00: [place] ([address]) albuterol 2020-0 Yes [id number] 2{puff} Inhale 2 [facility] 90 2-22 Puffs ity of mcg/actuati 00:00: every 4 [facility] as on inhaler 00 (four) Medical hours as Branch needed for Wheezing or Shortness of Breath. inhalationa 2020-0 Yes [id number] Use as [facility] l spacing 2-22 directed ity of device 00:00: [place] ([address]) albuterol 2020-0 Yes [id number] 2{puff} Inhale 2 [facility] 90 2-22 Puffs ity of mcg/actuati 00:00: every 4 [facility] as on inhaler 00 (four) Medical hours as Branch needed for Wheezing or Shortness of Breath. inhalationa 2020-0 Yes [id number] Use as [facility] l spacing 2-22 directed ity of device 00:00: [place] ([address]) albuterol 2020-0 Yes [id number] 2{puff} Inhale 2 [facility] 90 2-22 Puffs ity of mcg/actuati 00:00: every 4 [facility] as on inhaler 00 (four) Medical hours as Branch needed for Wheezing or Shortness of Breath. inhalationa 2020-0 Yes [id number] Use as [facility] l spacing 2-22 directed ity of device 00:00: [place] ([address]) albuterol 2020-0 Yes [id number] 2{puff} Inhale 2 [facility] 90 2-22 Puffs ity of mcg/actuati 00:00: every 4 [facility] as on inhaler 00 (four) Medical hours as Branch needed for Wheezing or Shortness of Breath. inhalationa 2020-0 Yes [id number] Use as [facility] l spacing 2-22 directed ity of device 00:00: [place] ([address]) albuterol 2020-0 Yes [id number] 2{puff} Inhale 2 [facility] 90 2-22 Puffs ity of mcg/actuati 00:00: every 4 [facility] as on inhaler 00 (four) Medical hours as Branch needed for Wheezing or Shortness of Breath. inhalationa 2020-0 Yes [id number] Use as [facility] l spacing 2-22 directed ity of device 00:00: [place] ([address]) albuterol 2020-0 Yes [id number] 2{puff} Inhale 2 [facility] 90 2-22 Puffs ity of mcg/actuati 00:00: every 4 [facility] as on inhaler 00 (four) Medical hours as Branch needed for Wheezing or Shortness of Breath. inhalationa 2020-0 Yes [id number] Use as [facility] l spacing 2-22 directed ity of device 00:00: [place] ([address]) albuterol 2020-0 Yes [id number] 2{puff} Inhale 2 [facility] 90 2-22 Puffs ity of mcg/actuati 00:00: every 4 [facility] as on inhaler 00 (four) Medical hours as Branch needed for Wheezing or Shortness of Breath. inhalationa 2020-0 Yes [id number] Use as [facility] l spacing 2-22 directed ity of device 00:00: [place] ([address]) albuterol 2020-0 Yes [id number] 2{puff} Inhale 2 [facility] 90 2-22 Puffs ity of mcg/actuati 00:00: every 4 [facility] as on inhaler 00 (four) Medical hours as Branch needed for Wheezing or Shortness of Breath. inhalationa 2020-0 Yes [id number] Use as [facility] l spacing 2-22 directed ity of device 00:00: [place] ([address]) albuterol 2020-0 Yes [id number] 2{puff} Inhale 2 [facility] 90 2-22 Puffs ity of mcg/actuati 00:00: every 4 [facility] as on inhaler 00 (four) Medical hours as Branch needed for Wheezing or Shortness of Breath. inhalationa 2020-0 Yes [id number] Use as [facility] l spacing 2-22 directed ity of device 00:00: [place] ([address]) albuterol 2020-0 Yes [id number] 2{puff} Inhale 2 [facility] 90 2-22 Puffs ity of mcg/actuati 00:00: every 4 [facility] as on inhaler 00 (four) Medical hours as Branch needed for Wheezing or Shortness of Breath. inhalationa 2020-0 Yes [id number] Use as [facility] l spacing 2-22 directed ity of device 00:00: [place] ([address]) albuterol 2020-0 Yes [id number] 2{puff} Inhale 2 [facility] 90 2-22 Puffs ity of mcg/actuati 00:00: every 4 [facility] as on inhaler 00 (four) Medical hours as Branch needed for Wheezing or Shortness of Breath. inhalationa 2020-0 Yes [id number] Use as [facility] l spacing 2-22 directed ity of device 00:00: [place] ([address]) albuterol 2020-0 Yes [id number] 2{puff} Inhale 2 [facility] 90 2-22 Puffs ity of mcg/actuati 00:00: every 4 [place] as on inhaler 00 (four) Medical hours as Branch needed for Wheezing or Shortness of Breath. inhalationa 2020-0 Yes [id number] Use as [facility] l spacing 2-22 directed ity of device 00:00: [place] ([address]) albuterol 2020-0 Yes [id number] 2{puff} Inhale 2 [facility] 90 2-22 Puffs ity of mcg/actuati 00:00: every 4 [facility] as on inhaler 00 (four) Medical hours as Branch needed for Wheezing or Shortness of Breath. inhalationa 2020-0 Yes [id number] Use as [facility] l spacing 2-22 directed ity of device 00:00: [place] ([address]) albuterol 2020-0 Yes [id number] 2{puff} Inhale 2 [facility] 90 2-22 Puffs ity of mcg/actuati 00:00: every 4 [place] as on inhaler 00 (four) Medical hours as Branch needed for Wheezing or Shortness of Breath. inhalationa 2020-0 Yes [id number] Use as [facility] l spacing 2-22 directed ity of device 00:00: [place] ([address]) albuterol 2020-0 Yes [id number] 2{puff} Inhale 2 [facility] 90 2-22 Puffs ity of mcg/actuati 00:00: every 4 [facility] as on inhaler 00 (four) Medical hours as Branch needed for Wheezing or Shortness of Breath. inhalationa 2020-0 Yes [id number] Use as [facility] l spacing 2-22 directed ity of device 00:00: [place] ([address]) albuterol 2020-0 Yes [id number] 2{puff} Inhale 2 [facility] 90 2-22 Puffs ity of mcg/actuati 00:00: every 4 [place] as on inhaler 00 (four) Medical hours as Branch needed for Wheezing or Shortness of Breath. inhalationa 2020-0 Yes [id number] Use as [facility] l spacing 2-22 directed ity of device 00:00: [place] ([address]) albuterol 2020-0 Yes [id number] 2{puff} Inhale 2 [facility] 90 2-22 Puffs ity of mcg/actuati 00:00: every 4 [place] as on inhaler 00 (four) Medical hours as Branch needed for Wheezing or Shortness of Breath. inhalationa 2020-0 Yes [id number] Use as [facility] l spacing 2-22 directed ity of device 00:00: [place] ([address]) albuterol 2020-0 Yes [id number] 2{puff} Inhale 2 [facility] 90 2-22 Puffs ity of mcg/actuati 00:00: every 4 [facility] as on inhaler 00 (four) Medical hours as Branch needed for Wheezing or Shortness of Breath. inhalationa 2020-0 Yes [id number] Use as [facility] l spacing 2-22 directed ity of device 00:00: [place] ([address]) albuterol 2020-0 Yes [id number] 2{puff} Inhale 2 [facility] 90 2-22 Puffs ity of mcg/actuati 00:00: every 4 [place] as on inhaler 00 (four) Medical hours as Branch needed for Wheezing or Shortness of Breath. inhalationa 2020-0 Yes [id number] Use as [facility] l spacing 2-22 directed ity of device 00:00: [place] ([address]) albuterol 2020-0 Yes [id number] 2{puff} Inhale 2 [facility] 90 2-22 Puffs ity of mcg/actuati 00:00: every 4 [place] as on inhaler 00 (four) Medical hours as Branch needed for Wheezing or Shortness of Breath. inhalationa 2020-0 Yes [id number] Use as [facility] l spacing 2-22 directed ity of device 00:00: [place] ([address]) albuterol 2020-0 Yes [id number] 2{puff} Inhale 2 [facility] 90 2-22 Puffs ity of mcg/actuati 00:00: every 4 [place] as on inhaler 00 (four) Medical hours as Branch needed for Wheezing or Shortness of Breath. inhalationa 2020-0 Yes [id number] Use as [facility] l spacing 2-22 directed ity of device 00:00: [place] ([address]) albuterol 2020-0 Yes [id number] 2{puff} Inhale 2 [facility] 90 2-22 Puffs ity of mcg/actuati 00:00: every 4 [place] as on inhaler 00 (four) Medical hours as Branch needed for Wheezing or Shortness of Breath. inhalationa 2020-0 Yes [id number] Use as [facility] l spacing 2-22 directed ity of device 00:00: [place] ([address]) albuterol 2020-0 Yes [id number] 2{puff} Inhale 2 [facility] 90 2-22 Puffs ity of mcg/actuati 00:00: every 4 [place] as on inhaler 00 (four) Medical hours as Branch needed for Wheezing or Shortness of Breath. inhalationa 2020-0 Yes [id number] Use as [facility] l spacing 2-22 directed ity of device 00:00: [place] ([address]) albuterol 2020-0 Yes [id number] 2{puff} Inhale 2 [facility] 90 2-22 Puffs ity of mcg/actuati 00:00: every 4 [facility] as on inhaler 00 (four) Medical hours as Branch needed for Wheezing or Shortness of Breath. inhalationa 2020-0 Yes [id number] Use as [facility] l spacing 2-22 directed ity of device 00:00: [place] ([address]) albuterol 2020-0 Yes [id number] 2{puff} Inhale 2 [facility] 90 2-22 Puffs ity of mcg/actuati 00:00: every 4 [place] as on inhaler 00 (four) Medical hours as Branch needed for Wheezing or Shortness of Breath. inhalationa 2020-0 Yes [id number] Use as [facility] l spacing 2-22 directed ity of device 00:00: [place] ([address]) albuterol 2020-0 Yes [id number] 2{puff} Inhale 2 [facility] 90 2-22 Puffs ity of mcg/actuati 00:00: every 4 [facility] as on inhaler 00 (four) Medical hours as Branch needed for Wheezing or Shortness of Breath. inhalationa 2020-0 Yes [id number] Use as [facility] l spacing 2-22 directed ity of device 00:00: [place] ([address]) albuterol 2020-0 Yes [id number] 2{puff} Inhale 2 [facility] 90 2-22 Puffs ity of mcg/actuati 00:00: every 4 [facility] as on inhaler 00 (four) Medical hours as Branch needed for Wheezing or Shortness of Breath. inhalationa 2020-0 Yes [id number] Use as [facility] l spacing 2-22 directed ity of device 00:00: [place] ([address]) albuterol 2020-0 Yes [id number] 2{puff} Inhale 2 [facility] 90 2-22 Puffs ity of mcg/actuati 00:00: every 4 [facility] as on inhaler 00 (four) Medical hours as Branch needed for Wheezing or Shortness of Breath. inhalationa 2020-0 Yes [id number] Use as [facility] l spacing 2-22 directed ity of device 00:00: [place] ([address]) albuterol 2020-0 Yes [id number] 2{puff} Inhale 2 [facility] 90 2-22 Puffs ity of mcg/actuati 00:00: every 4 [facility] as on inhaler 00 (four) Medical hours as Branch needed for Wheezing or Shortness of Breath. inhalationa 2020-0 Yes [id number] Use as [facility] l spacing 2-22 directed ity of device 00:00: [place] ([address]) albuterol 2020-0 Yes [id number] 2{puff} Inhale 2 [facility] 90 2-22 Puffs ity of mcg/actuati 00:00: every 4 [place] as on inhaler 00 (four) Medical hours as Branch needed for Wheezing or Shortness of Breath. inhalationa 2020-0 Yes [id number] Use as [facility] l spacing 2-22 directed ity of device 00:00: [place] ([address]) albuterol 2020-0 Yes [id number] 2{puff} Inhale 2 [facility] 90 2-22 Puffs ity of mcg/actuati 00:00: every 4 [facility] as on inhaler 00 (four) Medical hours as Branch needed for Wheezing or Shortness of Breath. inhalationa 2020-0 Yes [id number] Use as [facility] l spacing 2-22 directed ity of device 00:00: [place] ([address]) albuterol 2020-0 Yes [id number] 2{puff} Inhale 2 [facility] 90 2-22 Puffs ity of mcg/actuati 00:00: every 4 [facility] as on inhaler 00 (four) Medical hours as Branch needed for Wheezing or Shortness of Breath. inhalationa 2020-0 Yes [id number] Use as [facility] l spacing 2-22 directed ity of device 00:00: [place] ([address]) albuterol 2020-0 Yes [id number] 2{puff} Inhale 2 [facility] 90 2-22 Puffs ity of mcg/actuati 00:00: every 4 [facility] as on inhaler 00 (four) Medical hours as Branch needed for Wheezing or Shortness of Breath. inhalationa 2020-0 Yes [id number] Use as [facility] l spacing 2-22 directed ity of device 00:00: [place] ([address]) albuterol 2020-0 Yes [id number] 2{puff} Inhale 2 [facility] 90 2-22 Puffs ity of mcg/actuati 00:00: every 4 [facility] as on inhaler 00 (four) Medical hours as Branch needed for Wheezing or Shortness of Breath. inhalationa 2020-0 Yes [id number] Use as [facility] l spacing 2-22 directed ity of device 00:00: [place] ([address]) albuterol 2020-0 Yes [id number] 2{puff} Inhale 2 [facility] 90 2-22 Puffs ity of mcg/actuati 00:00: every 4 [facility] as on inhaler 00 (four) Medical hours as Branch needed for Wheezing or Shortness of Breath. inhalationa 2020-0 Yes [id number] Use as [facility] l spacing 2-22 directed ity of device 00:00: [place] ([address]) albuterol 2020-0 Yes [id number] 2{puff} Inhale 2 [facility] 90 2-22 Puffs ity of mcg/actuati 00:00: every 4 [facility] as on inhaler 00 (four) Medical hours as Branch needed for Wheezing or Shortness of Breath. inhalationa 2020-0 Yes [id number] Use as [facility] l spacing 2-22 directed ity of device 00:00: [place] ([address]) albuterol 2020-0 Yes [id number] 2{puff} Inhale 2 [facility] 90 2-22 Puffs ity of mcg/actuati 00:00: every 4 [facility] as on inhaler 00 (four) Medical hours as Branch needed for Wheezing or Shortness of Breath. inhalationa 2020-0 Yes [id number] Use as [facility] l spacing 2-22 directed ity of device 00:00: [place] ([address]) albuterol 2020-0 Yes [id number] 2{puff} Inhale 2 [facility] 90 2-22 Puffs ity of mcg/actuati 00:00: every 4 [facility] as on inhaler 00 (four) Medical hours as Branch needed for Wheezing or Shortness of Breath. inhalationa 2020-0 Yes [id number] Use as [facility] l spacing 2-22 directed ity of device 00:00: [place] ([address]) albuterol 2020-0 Yes [id number] 2{puff} Inhale 2 [facility] 90 2-22 Puffs ity of mcg/actuati 00:00: every 4 [facility] as on inhaler 00 (four) Medical hours as Branch needed for Wheezing or Shortness of Breath. inhalationa 2020-0 Yes [id number] Use as [facility] l spacing 2-22 directed ity of device 00:00: [place] ([address]) albuterol 2020-0 Yes [id number] 2{puff} Inhale 2 [facility] 90 2-22 Puffs ity of mcg/actuati 00:00: every 4 [facility] as on inhaler 00 (four) Medical hours as Branch needed for Wheezing or Shortness of Breath. inhalationa 2020-0 Yes [id number] Use as [facility] l spacing 2-22 directed ity of device 00:00: [place] ([address]) albuterol 2020-0 Yes [id number] 2{puff} Inhale 2 [facility] 90 2-22 Puffs ity of mcg/actuati 00:00: every 4 [place] as on inhaler 00 (four) Medical hours as Branch needed for Wheezing or Shortness of Breath. inhalationa 2020-0 Yes [id number] Use as [facility] l spacing 2-22 directed ity of device 00:00: [place] ([address]) albuterol 2020-0 Yes [id number] 2{puff} Inhale 2 [facility] 90 2-22 Puffs ity of mcg/actuati 00:00: every 4 [place] [facility] on inhaler 00 (four) Medical hours as Branch needed for Wheezing or Shortness of Breath. inhalationa 2020-0 Yes [id number] Use as [facility] l spacing 2-22 directed ity of device 00:00: [place] ([address]) albuterol 2020-0 Yes [id number] 2{puff} Inhale 2 [facility] 90 2-22 Puffs ity of mcg/actuati 00:00: every 4 [place] on inhaler 00 (four) Medical hours as Branch needed for Wheezing or Shortness of Breath. inhalationa 2020-0 Yes [id number] Use as [facility] l spacing 2-22 directed ity of device 00:00: [place] ([address]) albuterol 2020-0 Yes [id number] 2{puff} Inhale 2 [facility] 90 2-22 Puffs ity of mcg/actuati 00:00: every 4 [place] on inhaler 00 (four) Medical hours as Branch needed for Wheezing or Shortness of Breath. inhalationa 2020-0 Yes [id number] Use as [facility] l spacing 2-22 directed ity of device 00:00: [place] ([address]) albuterol 2020-0 Yes [id number] 2{puff} Inhale 2 [facility] 90 2-22 Puffs ity of mcg/actuati 00:00: every 4 [place] on inhaler 00 (four) Medical hours as Branch needed for Wheezing or Shortness of Breath. inhalationa 2020-0 Yes [id number] Use as [facility] l spacing 2-22 directed ity of device 00:00: [place] ([address]) albuterol 2020-0 Yes [id number] 2{puff} Inhale 2 [facility] 90 2-22 Puffs ity of mcg/actuati 00:00: every 4 [place] on inhaler 00 (four) Medical hours as Branch needed for Wheezing or Shortness of Breath. inhalationa 2020-0 Yes [id number] Use as [facility] l spacing 2-22 directed ity of device 00:00: [place] ([address]) albuterol 2020-0 Yes [id number] 2{puff} Inhale 2 [facility] 90 2-22 Puffs ity of mcg/actuati 00:00: every 4 [place] on inhaler 00 (four) Medical hours as Branch needed for Wheezing or Shortness of Breath. inhalationa 2020-0 Yes [id number] Use as [facility] l spacing 2-22 directed ity of device 00:00: [place] ([address]) albuterol 2020-0 Yes [id number] 2{puff} Inhale 2 [facility] 90 2-22 Puffs ity of mcg/actuati 00:00: every 4 [place] [facility] inhaler 00 (four) Medical hours as Branch needed for Wheezing or Shortness of Breath. inhalationa 2020-0 Yes [id number] Use as [facility] l spacing 2-22 directed ity of device 00:00: [place] ([address]) albuterol 2020-0 Yes [id number] 2{puff} Inhale 2 [facility] 90 2-22 Puffs ity of mcg/actuati 00:00: every 4 [place] [facility] on inhaler 00 (four) Medical hours as Branch needed for Wheezing or Shortness of Breath. inhalationa 2020-0 Yes [id number] Use as [facility] l spacing 2-22 directed ity of device 00:00: [place] ([address]) albuterol 2020-0 Yes [id number] 2{puff} Inhale 2 [facility] 90 2-22 Puffs ity of mcg/actuati 00:00: every 4 [place] [facility] on inhaler 00 (four) Medical hours as Branch needed for Wheezing or Shortness of Breath. inhalationa 2020-0 Yes [id number] Use as [facility] l spacing 2-22 directed ity of device 00:00: [place] ([address]) albuterol 2020-0 Yes [id number] 2{puff} Inhale 2 [facility] 90 2-22 Puffs ity of mcg/actuati 00:00: every 4 [place] [facility] on inhaler 00 (four) Medical hours as Branch needed for Wheezing or Shortness of Breath. inhalationa 2020-0 Yes [id number] Use as [facility] l spacing 2-22 directed ity of device 00:00: [place] ([address]) albuterol 2020-0 Yes [id number] 2{puff} Inhale 2 [facility] 90 2-22 Puffs ity of mcg/actuati 00:00: every 4 [place] on inhaler 00 (four) Medical hours as Branch needed for Wheezing or Shortness of Breath. inhalationa 2020-0 Yes [id number] Use as [facility] l spacing 2-22 directed ity of device 00:00: [place] ([address]) albuterol 2020-0 Yes [id number] 2{puff} Inhale 2 [facility] 90 2-22 Puffs ity of mcg/actuati 00:00: every 4 [place] on inhaler 00 (four) Medical hours as Branch needed for Wheezing or Shortness of Breath. inhalationa 2020-0 Yes [id number] Use as [facility] l spacing 2-22 directed ity of device 00:00: [place] ([address]) albuterol 2020-0 Yes [id number] 2{puff} Inhale 2 [facility] 90 2-22 Puffs ity of mcg/actuati 00:00: every 4 [place] on inhaler 00 (four) Medical hours as Branch needed for Wheezing or Shortness of Breath. inhalationa 2020-0 Yes [id number] Use as [facility] l spacing 2-22 directed ity of device 00:00: [place] ([address]) albuterol 2020-0 Yes [id number] 2{puff} Inhale 2 [facility] 90 2-22 Puffs ity of mcg/actuati 00:00: every 4 [place] on inhaler 00 (four) Medical hours as Branch needed for Wheezing or Shortness of Breath. inhalationa 2020-0 Yes [id number] Use as [facility] l spacing 2-22 directed ity of device 00:00: [place] ([address]) albuterol 2020-0 Yes [id number] 2{puff} Inhale 2 [facility] 90 2-22 Puffs ity of mcg/actuati 00:00: every 4 [place] on inhaler 00 (four) Medical hours as Branch needed for Wheezing or Shortness of Breath. inhalationa 2020-0 Yes [id number] Use as [facility] l spacing 2-22 directed ity of device 00:00: [place] ([address]) albuterol 2020-0 Yes [id number] 2{puff} Inhale 2 [facility] 90 2-22 Puffs ity of mcg/actuati 00:00: every 4 [place] on inhaler 00 (four) Medical hours as Branch needed for Wheezing or Shortness of Breath. inhalationa 2020-0 Yes [id number] Use as [facility] l spacing 2-22 directed ity of device 00:00: [place] ([address]) albuterol 2020-0 Yes [id number] 2{puff} Inhale 2 [facility] 90 2-22 Puffs ity of mcg/actuati 00:00: every 4 [place] [facility] on inhaler 00 (four) Medical hours as Branch needed for Wheezing or Shortness of Breath. inhalationa 2020-0 Yes [id number] Use as [facility] l spacing 2-22 directed ity of device 00:00: [place] ([address]) albuterol 2020-0 Yes [id number] 2{puff} Inhale 2 [facility] 90 2-22 Puffs ity of mcg/actuati 00:00: every 4 [place] [facility] on inhaler 00 (four) Medical hours as Branch needed for Wheezing or Shortness of Breath. inhalationa 2020-0 Yes [id number] Use as [facility] l spacing 2-22 directed ity of device 00:00: [place] ([address]) albuterol 2020-0 Yes [id number] 2{puff} Inhale 2 [facility] 90 2-22 Puffs ity of mcg/actuati 00:00: every 4 [place] [facility] on inhaler 00 (four) Medical hours as Branch needed for Wheezing or Shortness of Breath. inhalationa 2020-0 Yes [id number] Use as [facility] l spacing 2-22 directed ity of device 00:00: [place] ([address]) albuterol 2020-0 Yes [id number] 2{puff} Inhale 2 [facility] 90 2-22 Puffs ity of mcg/actuati 00:00: every 4 [place] [facility] on inhaler 00 (four) Medical hours as Branch needed for Wheezing or Shortness of Breath. inhalationa 2020-0 Yes [id number] Use as [facility] l spacing 2-22 directed ity of device 00:00: [place] ([address]) albuterol 2020-0 Yes [id number] 2{puff} Inhale 2 [facility] 90 2-22 Puffs ity of mcg/actuati 00:00: every 4 [place] [facility] on inhaler 00 (four) Medical hours as Branch needed for Wheezing or Shortness of Breath. inhalationa 2020-0 Yes [id number] Use as [facility] l spacing 2-22 directed ity of device 00:00: [place] ([address]) albuterol 2020-0 Yes [id number] 2{puff} Inhale 2 [facility] 90 2-22 Puffs ity of mcg/actuati 00:00: every 4 [place] [facility] on inhaler 00 (four) Medical hours as Branch needed for Wheezing or Shortness of Breath. inhalationa 2020-0 Yes [id number] Use as [facility] l spacing 2-22 directed ity of device 00:00: [place] ([address]) albuterol 2020-0 Yes [id number] 2{puff} Inhale 2 [facility] 90 2-22 Puffs ity of mcg/actuati 00:00: every 4 [place] [facility] on inhaler 00 (four) Medical hours as Branch needed for Wheezing or Shortness of Breath. inhalationa 2020-0 Yes [id number] Use as [facility] l spacing 2-22 directed ity of device 00:00: [place] ([address]) albuterol 2020-0 Yes [id number] 2{puff} Inhale 2 [facility] 90 2-22 Puffs ity of mcg/actuati 00:00: every 4 [place] [facility] on inhaler 00 (four) Medical hours as Branch needed for Wheezing or Shortness of Breath. inhalationa 2020-0 Yes [id number] Use as [facility] l spacing 2-22 directed ity of device 00:00: [place] ([address]) albuterol 2020-0 Yes [id number] 2{puff} Inhale 2 [facility] 90 2-22 Puffs ity of mcg/actuati 00:00: every 4 [place] [facility] on inhaler 00 (four) Medical hours as Branch needed for Wheezing or Shortness of Breath. inhalationa 2020-0 Yes [id number] Use as [facility] l spacing 2-22 directed ity of device 00:00: [place] ([address]) albuterol 2020-0 Yes [id number] 2{puff} Inhale 2 [facility] 90 2-22 Puffs ity of mcg/actuati 00:00: every 4 [place] [facility] on inhaler 00 (four) Medical hours as Branch needed for Wheezing or Shortness of Breath. inhalationa 2020-0 Yes [id number] Use as [facility] l spacing 2-22 directed ity of device 00:00: [place] ([address]) albuterol 2020-0 Yes [id number] 2{puff} Inhale 2 [facility] 90 2-22 Puffs ity of mcg/actuati 00:00: every 4 [place] [facility] on inhaler 00 (four) Medical hours as Branch needed for Wheezing or Shortness of Breath. inhalationa 2020-0 Yes [id number] Use as [facility] l spacing 2-22 directed ity of device 00:00: [place] ([address]) albuterol 2020-0 Yes [id number] 2{puff} Inhale 2 [facility] 90 2-22 Puffs ity of mcg/actuati 00:00: every 4 [place] [facility] on inhaler 00 (four) Medical hours as Branch needed for Wheezing or Shortness of Breath. inhalationa 2020-0 Yes [id number] Use as [facility] l spacing 2-22 directed ity of device 00:00: [place] ([address]) albuterol 2020-0 Yes [id number] 2{puff} Inhale 2 [facility] 90 2-22 Puffs ity of mcg/actuati 00:00: every 4 [place] [facility] on inhaler 00 (four) Medical hours as Branch needed for Wheezing or Shortness of Breath. inhalationa 2020-0 Yes [id number] Use as [facility] l spacing 2-22 directed ity of device 00:00: [place] ([address]) albuterol 2020-0 Yes [id number] 2{puff} Inhale 2 [facility] 90 2-22 Puffs ity of mcg/actuati 00:00: every 4 [place] [facility] on inhaler 00 (four) Medical hours as Branch needed for Wheezing or Shortness of Breath. inhalationa 2020-0 Yes [id number] Use as [facility] l spacing 2-22 directed ity of device 00:00: [place] ([address]) albuterol 2020-0 Yes [id number] 2{puff} Inhale 2 [facility] 90 2-22 Puffs ity of mcg/actuati 00:00: every 4 [place] as on inhaler 00 (four) Medical hours as Branch needed for Wheezing or Shortness of Breath. acetaminoph 2020-0 Yes [id number] 1/2 - 1 [facility] en-codeine 2-22 tab Every ity of 300-30 mg 00:00: 4hrs as [place] tablet 00 needed for Medical pain or Branch cough requiring narcotic inhalationa 2020-0 Yes [id number] Use as [facility] l spacing 2-22 directed ity of device 00:00: [place] ([address]) albuterol 2020-0 Yes [id number] 2{puff} Inhale 2 [facility] 90 2-22 Puffs ity of mcg/actuati 00:00: every 4 [place] as on inhaler 00 (four) Medical hours as Branch needed for Wheezing or Shortness of Breath. acetaminoph 2020-0 Yes [id number] 09/18 - [facility] en-codeine 2-22 tab Every ity of 300-30 mg 00:00: 4hrs as [place] tablet 00 needed for Medical pain or Branch cough requiring narcotic inhalationa 2020-0 Yes [id number] Use as [facility] l spacing 2-22 directed ity of device 00:00: [place] [place] [facility] [place]-0 Yes [id number] 2{puff} Inhale 2 [facility] 90 2-22 Puffs ity of mcg/actuati 00:00: every 4 [place] as on inhaler 00 (four) Medical hours as Branch needed for Wheezing or Shortness of Breath. acetaminoph 2020-0 Yes [id number] 09/18 [facility] en-codeine 2-22 tab Every ity of 300-30 mg 00:00: 4hrs as [place] tablet 00 needed for Medical pain or Branch cough requiring narcotic inhalationa 2020-0 Yes [id number] Use as [facility] l spacing 2-22 directed ity of device 00:00: [place] [facility] [place]ol 2020-0 Yes [id number] 2{puff} Inhale 2 [facility] 90 2-22 Puffs ity of mcg/actuati 00:00: every 4 [place] as on inhaler 00 (four) Medical hours as Branch needed for Wheezing or Shortness of Breath. acetaminoph 2020-0 Yes [id number] 09/18 - [facility] en-codeine 2-22 tab Every ity of 300-30 mg 00:00: 4hrs as [place] tablet 00 needed for Medical pain or Branch cough requiring narcotic inhalationa 2020-0 Yes [id number] Use as [facility] l spacing 2-22 directed ity of device 00:00: [place] ([facility] [place] [facility] [place]buterol 2020-0 Yes [id number] 2{puff} Inhale 2 [facility] 90 2-22 Puffs ity of mcg/actuati 00:00: every 4 [place] [facility] on inhaler 00 (four) Medical hours as Branch needed for Wheezing or Shortness of Breath. acetaminoph 2020-0 Yes [id number] 2 - 1 [facility] en-codeine 2-22 tab Every ity of 300-30 mg 00:00: 4hrs as [place] tablet 00 needed for Medical pain or Branch cough requiring narcotic inhalationa 2020-0 Yes [id number] Use as [facility] l spacing 2-22 directed ity of device 00:00: [place] ([address]) albuterol 2020-0 Yes [id number] 2{puff} Inhale 2 [facility] 90 2-22 Puffs ity of mcg/actuati 00:00: every 4 [place] as on inhaler 00 (four) Medical hours as Branch needed for Wheezing or Shortness of Breath. acetaminoph 2020-0 Yes [id number] 2 - [facility] en-codeine 2-22 tab Every ity of 300-30 mg 00:00: 4hrs as [place] tablet 00 needed for Medical pain or Branch cough requiring narcotic inhalationa 2020-0 Yes [id number] Use as [facility] l spacing 2-22 directed ity of device 00:00: [place] [place]but[place]ol 2020-0 Yes [id number] 2{puff} Inhale 2 [facility] 90 2-22 Puffs ity of mcg/actuati 00:00: every 4 [place] as on inhaler 00 (four) Medical hours as Branch needed for Wheezing or Shortness of Breath. acetaminoph 2020-0 Yes [id number] 2 - [facility] en-codeine 2-22 tab Every ity of 300-30 mg 00:00: 4hrs as [place] tablet 00 needed for Medical pain or Branch cough requiring narcotic inhalationa 2020-0 Yes [id number] Use as [facility] l spacing 2-22 directed ity of device 00:00: [place] ([address]) albuterol 2020-0 Yes [id number] 2{puff} Inhale 2 [facility] 90 2-22 Puffs ity of mcg/actuati 00:00: every 4 [place] as on inhaler 00 (four) Medical hours as Branch needed for Wheezing or Shortness of Breath. acetaminoph 2020-0 Yes [id number] 2 - [facility] en-codeine 2-22 tab Every ity of 300-30 mg 00:00: 4hrs as [place] tablet 00 needed for Medical pain or Branch cough requiring narcotic inhalationa 2020-0 Yes [id number] Use as [facility] l spacing - directed ity of device 00:00: [place] ([facility] 00 Medical [facility]) acetaminoph 2020-0 2020- No [id number] 09/18 [facility] en-codeine 11-08 09-10 tab Every ity of 300-30 mg 00:00: 00:00 4hrs [place] tablet 00 :00 needed for Medical pain or Branch cough requiring narcotic tiZANidine 2020-0 Yes [id number] 4mg Take 1-2 [facility] 4 mg tablet 2-13 tablets by it y of 00:00: mouth [place] 00 every 8 Medical (eight) Branch hours as needed (muscle pain or spasm). AMLODIPINE 2020-0 Yes [id number] TAKE 1 U nivers 2.5 mg 2-13 TABLET BY ity of tablet 00:00: MOUTH [place] 00 EVERY DAY Medical Branch tiZANidine 2020-0 Yes [id number] 4mg Take 1-2 [facility] 4 mg tablet 2-13 tablets by it y of 00:00: mouth [place] 00 every 8 Medical (eight) Branch hours as needed (muscle pain or spasm). AMLODIPINE 2020-0 Yes [id number] TAKE 1 U nivers 2.5 mg 2-13 TABLET BY ity of tablet 00:00: MOUTH [place] 00 EVERY DAY Medical Branch tiZANidine 2020-0 Yes [id number] 4mg Take 1-2 [facility] 4 mg tablet 2-13 tablets by it y of 00:00: mouth [place] 00 every 8 Medical (eight) Branch hours as needed (muscle pain or spasm). AMLODIPINE 2020-0 Yes [id number] TAKE 1 U nivers 2.5 mg 2-13 TABLET BY ity of tablet 00:00: MOUTH [place] 00 EVERY DAY Medical Branch tiZANidine 2020-0 Yes [id number] 4mg Take 1-2 [facility] 4 mg tablet 2-13 tablets by it y of 00:00: mouth [place] 00 every 8 Medical (eight) Branch hours as needed (muscle pain or spasm). AMLODIPINE 2020-0 Yes [id number] TAKE 1 U nivers 2.5 mg 2-13 TABLET BY ity of tablet 00:00: MOUTH [place] 00 EVERY DAY Medical Branch tiZANidine 2020-0 Yes [id number] 4mg Take 1-2 [facility] 4 mg tablet 2-13 tablets by it y of 00:00: mouth [place] 00 every 8 Medical (eight) Branch hours as needed (muscle pain or spasm). AMLODIPINE 2020-0 Yes [id number] TAKE 1 U nivers 2.5 mg 2-13 TABLET BY ity of tablet 00:00: MOUTH [place] 00 EVERY DAY Medical Branch tiZANidine 2020-0 Yes [id number] 4mg Take 1-2 [facility] 4 mg tablet 2-13 tablets by it y of 00:00: mouth [place] 00 every 8 Medical (eight) Branch hours as needed (muscle pain or spasm). AMLODIPINE 2020-0 Yes [id number] TAKE 1 U nivers 2.5 mg 2-13 TABLET BY ity of tablet 00:00: MOUTH [place] 00 EVERY DAY Medical Branch tiZANidine 2020-0 Yes [id number] 4mg Take 1-2 [facility] 4 mg tablet 2-13 tablets by it y of 00:00: mouth [place] 00 every 8 Medical (eight) Branch hours as needed (muscle pain or spasm). AMLODIPINE 2020-0 Yes [id number] TAKE 1 U nivers 2.5 mg 2-13 TABLET BY ity of tablet 00:00: MOUTH [place] 00 EVERY DAY Medical Branch tiZANidine 2020-0 Yes [id number] 4mg Take 1-2 [facility] 4 mg tablet 2-13 tablets by it y of 00:00: mouth [place] 00 every 8 Medical (eight) Branch hours as needed (muscle pain or spasm). AMLODIPINE 2020-0 Yes [id number] TAKE 1 U nivers 2.5 mg 2-13 TABLET BY ity of tablet 00:00: MOUTH [place] 00 EVERY DAY Medical Branch tiZANidine 2020-0 Yes [id number] 4mg Take 1-2 [facility] 4 mg tablet 2-13 tablets by it y of 00:00: mouth [place] 00 every 8 Medical (eight) Branch hours as needed (muscle pain or spasm). AMLODIPINE 2020-0 Yes [id number] TAKE 1 U nivers 2.5 mg 2-13 TABLET BY ity of tablet 00:00: MOUTH [place] 00 EVERY DAY Medical Branch tiZANidine 2020-0 Yes [id number] 4mg Take 1-2 [facility] 4 mg tablet 2-13 tablets by it y of 00:00: mouth [place] 00 every 8 Medical (eight) Branch hours as needed (muscle pain or spasm). AMLODIPINE 2020-0 Yes [id number] TAKE 1 U nivers 2.5 mg 2-13 TABLET BY ity of tablet 00:00: MOUTH 00 EVERY DAY Medical Branch tiZANidine 2020-0 Yes [id number] 4mg Take 1-2 [facility] 4 mg tablet 2-13 tablets by it y of 00:00: mouth 00 every 8 Medical (eight) Branch hours as needed (muscle pain or spasm). AMLODIPINE 2020-0 Yes [id number] TAKE 1 U nivers 2.5 mg 2-13 TABLET BY ity of tablet 00:00: MOUTH 00 EVERY DAY Medical Branch tiZANidine 2020-0 Yes [id number] 4mg Take 1-2 [facility] 4 mg tablet 2-13 tablets by it y of 00:00: mouth 00 every 8 Medical (eight) Branch hours as needed (muscle pain or spasm). AMLODIPINE 2020-0 Yes [id number] TAKE 1 U nivers 2.5 mg 2-13 TABLET BY ity of tablet 00:00: MOUTH 00 EVERY DAY Medical Branch AMLODIPINE 2020-0 Yes [id number] TAKE 1 U nivers 2.5 mg 2-13 TABLET BY ity of tablet 00:00: MOUTH 00 EVERY DAY Medical Branch AMLODIPINE 2020-0 Yes [id number] TAKE 1 U nivers 2.5 mg 2-13 TABLET BY ity of tablet 00:00: MOUTH 00 EVERY DAY Medical Branch AMLODIPINE 2020-0 Yes [id number] TAKE 1 U nivers 2.5 mg 2-13 TABLET BY ity of tablet 00:00: MOUTH 00 EVERY DAY Medical Branch AMLODIPINE 2020-0 Yes [id number] TAKE 1 U nivers 2.5 mg 2-13 TABLET BY ity of tablet 00:00: MOUTH 00 EVERY DAY Medical Branch AMLODIPINE 2020-0 Yes [id number] TAKE 1 U nivers 2.5 mg 2-13 TABLET BY ity of tablet 00:00: MOUTH 00 EVERY DAY Medical Branch AMLODIPINE 2020-0 Yes [id number] TAKE 1 U nivers 2.5 mg 2-13 TABLET BY ity of tablet 00:00: MOUTH 00 EVERY DAY Medical Branch AMLODIPINE 2020-0 Yes [id number] TAKE 1 U nivers 2.5 mg 2-13 TABLET BY ity of tablet 00:00: MOUTH 00 EVERY DAY Medical Branch AMLODIPINE 2020-0 Yes [id number] TAKE 1 U nivers 2.5 mg 2-13 TABLET BY ity of tablet 00:00: MOUTH 00 EVERY DAY Medical Branch AMLODIPINE 2020-0 Yes [id number] TAKE 1 U nivers 2.5 mg 2-13 TABLET BY ity of tablet 00:00: MOUTH [place] 00 EVERY DAY Medical Branch AMLODIPINE 2020-0 Yes [id number] TAKE 1 U nivers 2.5 mg 2-13 TABLET BY ity of tablet 00:00: MOUTH [place] 00 EVERY DAY Medical Branch AMLODIPINE 2020-0 Yes [id number] TAKE 1 U nivers 2.5 mg 2-13 TABLET BY ity of tablet 00:00: MOUTH [place] 00 EVERY DAY Medical Branch AMLODIPINE 2020-0 Yes [id number] TAKE 1 U nivers 2.5 mg 2-13 TABLET BY ity of tablet 00:00: MOUTH [place] 00 EVERY DAY Medical Branch AMLODIPINE 2020-0 Yes [id number] TAKE 1 U nivers 2.5 mg 2-13 TABLET BY ity of tablet 00:00: MOUTH [place] 00 EVERY DAY Medical Branch AMLODIPINE 2020-0 Yes [id number] TAKE 1 U nivers 2.5 mg 2-13 TABLET BY ity of tablet 00:00: MOUTH [place] 00 EVERY DAY Medical Branch AMLODIPINE 2020-0 Yes [id number] TAKE 1 U nivers 2.5 mg 2-13 TABLET BY ity of tablet 00:00: MOUTH [place] 00 EVERY DAY Medical Branch AMLODIPINE 2020-0 Yes [id number] TAKE 1 U nivers 2.5 mg 2-13 TABLET BY ity of tablet 00:00: MOUTH [place] 00 EVERY DAY Medical Branch AMLODIPINE 2020-0 Yes [id number] TAKE 1 U nivers 2.5 mg 2-13 TABLET BY ity of tablet 00:00: MOUTH [place] 00 EVERY DAY Medical Branch tiZANidine 2020-0 Yes [id number] 4mg Take 1-2 [facility] 4 mg tablet 2-13 tablets by it y of 00:00: mouth [place] 00 every 8 Medical (eight) Branch hours as needed (muscle pain or spasm). amLODIPine 2020-0 Yes [id number] 2.5mg Take 1 [facility] 2.5 mg 2-13 tablet by ity of tablet 00:00: mouth [place] 00 daily. Medical Branch tiZANidine 2020-0 Yes [id number] 4mg Take 1-2 [facility] 4 mg tablet 2-13 tablets by it y of 00:00: mouth [place] 00 every 8 Medical (eight) Branch hours as needed (muscle pain or spasm). AMLODIPINE 2020-0 Yes [id number] TAKE 1 U nivers 2.5 mg 2-13 TABLET BY ity of tablet 00:00: MOUTH [place] 00 EVERY DAY Medical Branch tiZANidine 2020-0 Yes [id number] 4mg Take 1-2 [facility] 4 mg tablet 2-13 tablets by it y of 00:00: mouth [place] 00 every 8 Medical (eight) Branch hours as needed (muscle pain or spasm). AMLODIPINE 2020-0 Yes [id number] TAKE 1 U nivers 2.5 mg 2-13 TABLET BY ity of tablet 00:00: MOUTH [place] 00 EVERY DAY Medical Branch tiZANidine 2020-0 Yes [id number] 4mg Take 1-2 [facility] 4 mg tablet 2-13 tablets by it y of 00:00: mouth [place] 00 every 8 Medical (eight) Branch hours as needed (muscle pain or spasm). AMLODIPINE 2020-0 Yes [id number] TAKE 1 U nivers 2.5 mg 2-13 TABLET BY ity of tablet 00:00: MOUTH [place] 00 EVERY DAY Medical Branch tiZANidine 2020-0 Yes [id number] 4mg Take 1-2 [facility] 4 mg tablet 2-13 tablets by it y of 00:00: mouth [place] 00 every 8 Medical (eight) Branch hours as needed (muscle pain or spasm). AMLODIPINE 2020-0 Yes [id number] TAKE 1 U nivers 2.5 mg 2-13 TABLET BY ity of tablet 00:00: MOUTH [place] 00 EVERY DAY Medical Branch tiZANidine 2020-0 Yes [id number] 4mg Take 1-2 [facility] 4 mg tablet 2-13 tablets by it y of 00:00: mouth [place] 00 every 8 Medical (eight) Branch hours as needed (muscle pain or spasm). tiZANidine 2020-0 Yes [id number] 4mg Take 1-2 [facility] 4 mg tablet 2-13 tablets by it y of 00:00: mouth [place] 00 every 8 Medical (eight) Branch hours as needed (muscle pain or spasm). tiZANidine 2020-0 Yes [id number] 4mg Take 1-2 [facility] 4 mg tablet 2-13 tablets by it y of 00:00: mouth [place] 00 every 8 Medical (eight) Branch hours as needed (muscle pain or spasm). AMLODIPINE 2020-0 Yes [id number] TAKE 1 U nivers 2.5 mg 2-13 TABLET BY ity of tablet 00:00: MOUTH [place] 00 EVERY DAY Medical Branch tiZANidine 2020-0 Yes [id number] 4mg Take 1-2 [facility] 4 mg tablet 2-13 tablets by it y of 00:00: mouth [place] 00 every 8 Medical (eight) Branch hours as needed (muscle pain or spasm). AMLODIPINE 2020-0 Yes [id number] TAKE 1 U nivers 2.5 mg 2-13 TABLET BY ity of tablet 00:00: MOUTH [place] 00 EVERY DAY Medical Branch tiZANidine 2020-0 Yes [id number] 4mg Take 1-2 [facility] 4 mg tablet 2-13 tablets by it y of 00:00: mouth [place] 00 every 8 Medical (eight) Branch hours as needed (muscle pain or spasm). AMLODIPINE 2020-0 Yes [id number] TAKE 1 U nivers 2.5 mg 2-13 TABLET BY ity of tablet 00:00: MOUTH [place] 00 EVERY DAY Medical Branch tiZANidine 2020-0 Yes [id number] 4mg Take 1-2 [facility] 4 mg tablet 2-13 tablets by it y of 00:00: mouth [place] 00 every 8 Medical (eight) Branch hours as needed (muscle pain or spasm). AMLODIPINE 2020-0 Yes [id number] TAKE 1 U nivers 2.5 mg 2-13 TABLET BY ity of tablet 00:00: MOUTH [place] 00 EVERY DAY Medical Branch tiZANidine 2020-0 Yes [id number] 4mg Take 1-2 [facility] 4 mg tablet 2-13 tablets by it y of 00:00: mouth [place] 00 every 8 Medical (eight) Branch hours as needed (muscle pain or spasm). AMLODIPINE 2020-0 Yes [id number] TAKE 1 U nivers 2.5 mg 2-13 TABLET BY ity of tablet 00:00: MOUTH [place] 00 EVERY DAY Medical Branch tiZANidine 2020-0 Yes [id number] 4mg Take 1-2 [facility] 4 mg tablet 2-13 tablets by it y of 00:00: mouth [place] 00 every 8 Medical (eight) Branch hours as needed (muscle pain or spasm). AMLODIPINE 2020-0 Yes [id number] TAKE 1 [facility] 2.5 mg 2-13 TABLET BY ity of tablet 00:00: MOUTH [place] 00 EVERY DAY Medical Branch tiZANidine 2020-0 Yes [id number] 4mg Take 1-2 [facility] 4 mg tablet 2-13 tablets by it y of 00:00: mouth [place] 00 every 8 Medical (eight) Branch hours as needed (muscle pain or spasm). AMLODIPINE 2020-0 Yes [id number] TAKE 1 [facility] 2.5 mg 2-13 TABLET BY ity of tablet 00:00: MOUTH [place] 00 EVERY DAY Medical Branch AMLODIPINE 2019-0 2020- No [id number] TAKE 1 [facility] 2.5 mg 2-13 - TABLET BY ity of tablet 00:00: 00:00 MOUTH [place] 00 :00 EVERY DAY Medical Branch AMLODIPINE 2019-0 2020- No [id number] TAKE 1 [facility] 2.5 mg 2-13 - TABLET BY ity of tablet 00:00: 00:00 MOUTH [place] 00 :00 EVERY DAY Medical Branch tiZANidine 2019- 2020- No [id number] 4mg Take 1-2 [facility] 4 mg tablet -27 01-07 tablets by i ty of 00:00: 00:00 mouth [place] 00 :00 every 8 Medical (eight) Branch hours as needed (muscle pain or spasm). amLODIPine 2019- 2020- No [id number] 2.5mg Take 1 [facility] 2.5 mg 2-30 10- tablet by ity of tablet 00:00: 00:00 mouth [place] 00 :00 daily. Medical Branch amLODIPine 0 2020- No [id number] 2.5mg Take 1 [facility] 2.5 mg 2-30 10- tablet by ity of tablet 00:00: 00:00 mouth [place] 00 :00 daily. Medical Branch amLODIPine 2019-0 2020- No [id number] 2.5mg Take 1 [facility] 2.5 mg 2-13 - tablet by ity of tablet 00:00: 00:00 mouth [place] 00 :00 daily. Medical Branch alcaftadine [address] [place] (LASTACAFT) 1-06 each eye. ity of 0.25 % Drop 18:: Medical Branch CYCLOSPORIN [address] [facility] [place] (RESTASIS 1-06 each eye. ity of OPHTHALMIC) 18:01: Medical Branch ASCORBATE 2019- Yes Take by [facility] CALCIUM 1-06 mouth. ity of (VITAMIN C 18:01: [place] ORAL) 24 Medical Branch DOCOSAHEXAN 2019-0 Yes Take by Uni vers OIC 1-06 mouth. ity of ACID/EPA 18:01: [place] (FISH OIL 24 Medical ORAL) Branch vitamin E 2019-0 Yes 1000U Take 1,000 [facility] 1,000 unit 1-06 Units by ity o f capsule 18:01: mouth [place] 24 daily. Medical Branch Magnesium 2020-0 Yes Take by [facility] 250 mg Tab 1-06 mouth. ity of 18:01: Medical Branch vitamin B-6 2020-0 Yes 100mg Take 100 [facility] (VITAMIN 1-06 mg by ity of B-6) 100 mg 18:01: mouth [place] tablet 24 daily. Medical Branch CALCIUM 2020-0 Yes Take by [facility] CARBONATE/V 1-06 mouth. ity of ITAMIN D3 18:01: (VITAMIN 24 Medical D-3 ORAL) Branch alcaftadine 2020-[address] [facility] [place] (LAST[place]FT) 1-06 each eye. ity of 0.25 % Drop 18:01: Medical Branch CYCLOSPORIN 2020-[address] [facility] [place] (RESTASIS 1-06 each eye. ity of OPHTHALMIC) 18:01: Medical Branch ASCORBATE 2020-0 Yes Take by [facility] CALCIUM 1-06 mouth. ity of (VITAMIN C 18:01: [place] ORAL) 24 Medical Branch DOCOSAHEXAN 2020-0 Yes Take by Uni vers OIC 1-06 mouth. ity of ACID/EPA 18:01: [place] (FISH OIL 24 Medical ORAL) Branch vitamin E 2020-0 Yes 1000U Take 1,000 [facility] 1,000 unit 1-06 Units by ity o f capsule 18:01: mouth [place] 24 daily. Medical Branch Magnesium 2020-0 Yes Take by [facility] 250 mg Tab 1-06 mouth. ity of 18:01: Medical Branch vitamin B-6 2020-0 Yes 100mg Take 100 [facility] (VITAMIN 1-06 mg by ity of B-6) 100 mg 18:01: mouth [place] tablet 24 daily. Medical Branch CALCIUM 2020-0 Yes Take by [facility] CARBONATE/V 1-06 mouth. ity of ITAMIN D3 18:01: (VITAMIN 24 Medical D-3 ORAL) Branch alcaftadine 2020-[address] [place] (LASTACAFT) 1-06 each eye. ity of 0.25 % Drop 18:01: Medical Branch CYCLOSPORIN 2020-[address] [facility] [place] (RESTASIS 1-06 each eye. ity of OPHTHALMIC) 18:01: [place] 24 Medical Branch ASCORBATE 2020-0 Yes Take by [facility] CALCIUM 1-06 mouth. ity of (VITAMIN C 18:01: [place] ORAL) 24 Medical Branch DOCOSAHEXAN 2020-0 Yes Take by Uni vers OIC 1-06 mouth. ity of ACID/EPA 18:: [place] (FISH OIL 24 Medical ORAL) Branch vitamin E 2020-0 Yes 1000U Take 1,000 [facility] 1,000 unit 1-06 Units by ity o f capsule 18:01: mouth [place] 24 daily. Medical Branch Magnesium 2020-0 Yes Take by [facility] 250 mg Tab 1-06 mouth. ity of 18:01: Medical Branch vitamin B-6 2020-0 Yes 100mg Take 100 [facility] (VITAMIN 1-06 mg by ity of B-6) 100 mg 18:01: mouth [place] tablet 24 daily. Medical Branch CALCIUM 2020-0 Yes Take by [facility] CARBONATE/V 1-06 mouth. ity of ITAMIN D3 18:: [place] (VITAMIN 24 Medical D-3 ORAL) Branch alcaftadine [address] [place] (LASTACAFT) 1-06 each eye. ity of 0.25 % Drop 18:: Medical Branch CYCLOSPORIN [address] [place] (RESTASIS 1-06 each eye. ity of OPHTHALMIC) 18:: Medical Branch ASCORBATE 2020-0 Yes Take by [facility] CALCIUM 1-06 mouth. ity of (VITAMIN C 18:01: [place] ORAL) 24 Medical Branch DOCOSAHEXAN 2020-0 Yes Take by Uni vers OIC 1-06 mouth. ity of ACID/EPA 18:: [place] (FISH OIL 24 Medical ORAL) Branch vitamin E 2020-0 Yes 1000U Take 1,000 [facility] 1,000 unit 1-06 Units by ity o f capsule 18:01: mouth [place] 24 daily. Medical Branch Magnesium 2020-0 Yes Take by [facility] 250 mg Tab 1-06 mouth. ity of 18:: Medical Branch vitamin B-6 2020-0 Yes 100mg Take 100 [facility] (VITAMIN 1-06 mg by ity of B-6) 100 mg 18:01: mouth [place] tablet 24 daily. Medical Branch CALCIUM 2020-0 Yes Take by [facility] CARBONATE/V 1-06 mouth. ity of ITAMIN D3 18:01: [place] (VITAMIN 24 Medical D-3 ORAL) Branch alcaftadine 2020-[address] [place] (LASTACAFT) 1-06 each eye. ity of 0.25 % Drop 18:01: Medical Branch CYCLOSPORIN 2020-[address] [place] (RESTASIS 1-06 each eye. ity of OPHTHALMIC) 18:01: Medical Branch ASCORBATE 2020-0 Yes Take by [facility] CALCIUM 1-06 mouth. ity of (VITAMIN C 18:01: [place] ORAL) 24 Medical Branch DOCOSAHEXAN 2020-0 Yes Take by Uni vers OIC 1-06 mouth. ity of ACID/EPA 18:01: [place] (FISH OIL 24 Medical ORAL) Branch vitamin E 2020-0 Yes 1000U Take 1,000 [facility] 1,000 unit 1-06 Units by ity o f capsule 18:01: mouth [place] 24 daily. Medical Branch Magnesium 2020-0 Yes Take by [facility] 250 mg Tab 1-06 mouth. ity of 18:01: Medical Branch vitamin B-6 2020-0 Yes 100mg Take 100 [facility] (VITAMIN 1-06 mg by ity of B-6) 100 mg 18:01: mouth [place] tablet 24 daily. Medical Branch CALCIUM 2020-0 Yes Take by [facility] CARBONATE/V 1-06 mouth. ity of ITAMIN D3 18:01: [place] (VITAMIN 24 Medical D-3 ORAL) Branch alcaftadine 2020-[address] [place] (LASTACAFT) 1-06 each eye. ity of 0.25 % Drop 18:01: Medical Branch CYCLOSPORIN 2020-[address] [facility] [place] (RESTASIS 1-06 each eye. ity of OPHTHALMIC) 18:01: Medical Branch ASCORBATE 2020-0 Yes Take by [facility] CALCIUM 1-06 mouth. ity of (VITAMIN C 18:01: [place] ORAL) 24 Medical Branch DOCOSAHEXAN 2020-0 Yes Take by Uni vers OIC 1-06 mouth. ity of ACID/EPA 18:01: [place] (FISH OIL 24 Medical ORAL) Branch vitamin E 2020-0 Yes 1000U Take 1,000 [facility] 1,000 unit 1-06 Units by ity o f capsule 18:01: mouth [place] 24 daily. Medical Branch Magnesium 2020-0 Yes Take by [facility] 250 mg Tab 1-06 mouth. ity of 18:01: Medical Branch vitamin B-6 2020-0 Yes 100mg Take 100 [facility] (VITAMIN 1-06 mg by ity of B-6) 100 mg 18:01: mouth [place] tablet 24 daily. Medical Branch CALCIUM 2020-0 Yes Take by [facility] CARBONATE/V 1-06 mouth. ity of ITAMIN D3 18:01: [place] (VITAMIN 24 Medical D-3 ORAL) Branch alcaftadine 2020-[address] [place] (LASTACAFT) 1-06 each eye. ity of 0.25 % Drop 18:01: Medical Branch CYCLOSPORIN 2020-[address] [facility] [place] (RESTASIS 1-06 each eye. ity of OPHTHALMIC) 18:01: Medical Branch ASCORBATE 2020-0 Yes Take by [facility] CALCIUM 1-06 mouth. ity of (VITAMIN C 18:01: [place] ORAL) 24 Medical Branch DOCOSAHEXAN 2020-0 Yes Take by Uni vers OIC 1-06 mouth. ity of ACID/EPA 18:01: [place] (FISH OIL 24 Medical ORAL) Branch vitamin E 2020-0 Yes 1000U Take 1,000 [facility] 1,000 unit 1-06 Units by ity o f capsule 18:01: mouth [place] 24 daily. Medical Branch Magnesium 2020-0 Yes Take by [facility] 250 mg Tab 1-06 mouth. ity of 18:01: Medical Branch vitamin B-6 2020-0 Yes 100mg Take 100 [facility] (VITAMIN 1-06 mg by ity of B-6) 100 mg 18:01: mouth [place] tablet 24 daily. Medical Branch CALCIUM 2020-0 Yes Take by [facility] CARBONATE/V 1-06 mouth. ity of ITAMIN D3 18:01: [place] (VITAMIN 24 Medical D-3 ORAL) Branch alcaftadine 2020-[address] [place] (LASTACAFT) 1-06 each eye. ity of 0.25 % Drop 18:01: Medical Branch CYCLOSPORIN 2020-[address] [facility] [place] (RESTASIS 1-06 each eye. ity of OPHTHALMIC) 18:01: Medical Branch ASCORBATE 2020-0 Yes Take by [facility] CALCIUM 1-06 mouth. ity of (VITAMIN C 18:01: [place] ORAL) 24 Medical Branch DOCOSAHEXAN 2020-0 Yes Take by Uni vers OIC 1-06 mouth. ity of ACID/EPA 18:01: (FISH OIL 24 Medical ORAL) Branch vitamin E 2020-0 Yes 1000U Take 1,000 [facility] 1,000 unit 1-06 Units by ity o f capsule 18:01: mouth [place] 24 daily. Medical Branch Magnesium 2020-0 Yes Take by [facility] 250 mg Tab 1-06 mouth. ity of 18:01: 24 Medical Branch vitamin B-6 2020-0 Yes 100mg Take 100 [facility] (VITAMIN 1-06 mg by ity of B-6) 100 mg 18:01: mouth [place] tablet 24 daily. Medical Branch CALCIUM 2020-0 Yes Take by [facility] CARBONATE/V 1-06 mouth. ity of ITAMIN D3 18:01: [place] (VITAMIN 24 Medical D-3 ORAL) Branch alcaftadine 2020-[address] [place] (LASTACAFT) 1-06 each eye. ity of 0.25 % Drop 18:01: Medical Branch CYCLOSPORIN 2020-[address] in [place] (RESTASIS 1-06 each eye. ity of OPHTHALMIC) 18:01: 24 Medical Branch ASCORBATE 2020-0 Yes Take by [facility] CALCIUM 1-06 mouth. ity of (VITAMIN C 18:01: [place] ORAL) 24 Medical Branch DOCOSAHEXAN 2020-0 Yes Take by Uni vers OIC 1-06 mouth. ity of ACID/EPA 18:01: [place] (FISH OIL 24 Medical ORAL) Branch vitamin E 2020-0 Yes 1000U Take 1,000 [facility] 1,000 unit 1-06 Units by ity o f capsule 18:01: mouth [place] 24 daily. Medical Branch Magnesium 2020-0 Yes Take by [facility] 250 mg Tab 1-06 mouth. ity of 18:01: 24 Medical Branch vitamin B-6 2020-0 Yes 100mg Take 100 [facility] (VITAMIN 1-06 mg by ity of B-6) 100 mg 18:01: mouth [place] tablet 24 daily. Medical Branch CALCIUM 2020-0 Yes Take by [facility] CARBONATE/V 1-06 mouth. ity of ITAMIN D3 18:01: [place] (VITAMIN 24 Medical D-3 ORAL) Branch alcaftadine 2020-[address] [place] (LASTACAFT) 1-06 each eye. ity of 0.25 % Drop 18:01: [place] [address] Medical Branch CYCLOSPORIN 2020-[address] in [place] (RESTASIS 1-06 each eye. ity of OPHTHALMIC) 18:01: [place] [address] Medical Branch ASCORBATE 2020-0 Yes Take by [facility] rs CALCIUM 1-06 mouth. ity of (VITAMIN C 18:01: [place] ORAL) 24 Medical Branch DOCOSAHEXAN 2020-0 Yes Take by Uni vers OIC 1-06 mouth. ity of ACID/EPA 18:01: [place] (FISH OIL 24 Medical ORAL) Branch vitamin E 2020-0 Yes 1000U Take 1,000 [facility] 1,000 unit 1-06 Units by ity o f capsule 18:01: mouth [place] 24 daily. Medical Branch Magnesium 2020-0 Yes Take by [facility] 250 mg Tab 1-06 mouth. ity of 18:01: [place] [address] Medical Branch vitamin B-6 2020-0 Yes 100mg Take 100 [facility] (VITAMIN 1-06 mg by ity of B-6) 100 mg 18:01: mouth [place] tablet 24 daily. Medical Branch CALCIUM 2020-0 Yes Take by [facility] CARBONATE/V 1-06 mouth. ity of ITAMIN D3 18:01: [place] (VITAMIN 24 Medical D-3 ORAL) Branch alcaftadine 2020-[address] in [place] (LASTACAFT) 1-06 each eye. ity of 0.25 % Drop 18:01: [place] [address] Medical Branch CYCLOSPORIN 2020-[address] in [place] (RESTASIS 1-06 each eye. ity of OPHTHALMIC) 18:01: [place] [address] Medical Branch ASCORBATE 2020-0 Yes Take by [facility] rs CALCIUM 1-06 mouth. ity of (VITAMIN C 18:01: [place] ORAL) 24 Medical Branch DOCOSAHEXAN 2020-0 Yes Take by Uni vers OIC 1-06 mouth. ity of ACID/EPA 18:01: [place] (FISH OIL 24 Medical ORAL) Branch vitamin E 2020-0 Yes 1000U Take 1,000 [facility] 1,000 unit 1-06 Units by ity o f capsule 18:01: mouth [place] 24 daily. Medical Branch Magnesium 2020-0 Yes Take by [facility] 250 mg Tab 1-06 mouth. ity of 18:01: [place] [address] Medical Branch vitamin B-6 2020-0 Yes 100mg Take 100 [facility] (VITAMIN 1-06 mg by ity of B-6) 100 mg 18:01: mouth [place] tablet 24 daily. Medical Branch CALCIUM 2020-0 Yes Take by [facility] CARBONATE/V 1-06 mouth. ity of ITAMIN D3 18:01: [place] (VITAMIN 24 Medical D-3 ORAL) Branch alcaftadine 2020-[address] in [place] (LASTACAFT) 1-06 each eye. ity of 0.25 % Drop 18:01: Medical Branch CYCLOSPORIN 2020-[address] in [place] (RESTASIS 1-06 each eye. ity of OPHTHALMIC) 18:01: 24 Medical Branch ASCORBATE 2020-0 Yes Take by [facility] CALCIUM 1-06 mouth. ity of (VITAMIN C 18:01: [place] ORAL) 24 Medical Branch DOCOSAHEXAN 2020-0 Yes Take by Uni vers OIC 1-06 mouth. ity of ACID/EPA 18:01: [place] (FISH OIL 24 Medical ORAL) Branch vitamin E 2020-0 Yes 1000U Take 1,000 [facility] 1,000 unit 1-06 Units by ity o f capsule 18:01: mouth [place] 24 daily. Medical Branch Magnesium 2020-0 Yes Take by [facility] 250 mg Tab 1-06 mouth. ity of 18:01: 24 Medical Branch vitamin B-6 2020-0 Yes 100mg Take 100 [facility] (VITAMIN 1-06 mg by ity of B-6) 100 mg 18:01: mouth [place] tablet 24 daily. Medical Branch CALCIUM 2020-0 Yes Take by [facility] CARBONATE/V 1-06 mouth. ity of ITAMIN D3 18:01: [place] (VITAMIN 24 Medical D-3 ORAL) Branch alcaftadine 2020-[address] [place] (LASTACAFT) 1-06 each eye. ity of 0.25 % Drop 18:01: Medical Branch CYCLOSPORIN 2020-[address] in [place] (RESTASIS 1-06 each eye. ity of OPHTHALMIC) 18:01: 24 Medical Branch ASCORBATE 2020-0 Yes Take by [facility] CALCIUM 1-06 mouth. ity of (VITAMIN C 18:01: [place] ORAL) 24 Medical Branch DOCOSAHEXAN 2020-0 Yes Take by Uni vers OIC 1-06 mouth. ity of ACID/EPA 18:01: [place] (FISH OIL 24 Medical ORAL) Branch vitamin E 2020-0 Yes 1000U Take 1,000 [facility] 1,000 unit 1-06 Units by ity o f capsule 18:01: mouth [place] 24 daily. Medical Branch Magnesium 2020-0 Yes Take by [facility] 250 mg Tab 1-06 mouth. ity of 18:01: Medical Branch vitamin B-6 2020-0 Yes 100mg Take 100 [facility] (VITAMIN 1-06 mg by ity of B-6) 100 mg 18:01: mouth [place] tablet 24 daily. Medical Branch CALCIUM 2020-0 Yes Take by [facility] CARBONATE/V 1-06 mouth. ity of ITAMIN D3 18:01: [place] (VITAMIN 24 Medical D-3 ORAL) Branch alcaftadine 2020-[address] [place] (LASTACAFT) 1-06 each eye. ity of 0.25 % Drop 18:01: Medical Branch CYCLOSPORIN 2019-[address] in [place] (RESTASIS 1-06 each eye. ity of OPHTHALMIC) 18:01: Medical Branch ASCORBATE 2020-0 Yes Take by [facility] CALCIUM 1-06 mouth. ity of (VITAMIN C 18:01: [place] ORAL) 24 Medical Branch DOCOSAHEXAN 2020-0 Yes Take by Uni vers OIC 1-06 mouth. ity of ACID/EPA 18:01: [place] (FISH OIL 24 Medical ORAL) Branch vitamin E 2020-0 Yes 1000U Take 1,000 [facility] 1,000 unit 1-06 Units by ity o f capsule 18:01: mouth [place] 24 daily. Medical Branch Magnesium 2020-0 Yes Take by [facility] 250 mg Tab 1-06 mouth. ity of 18:01: Medical Branch vitamin B-6 2020-0 Yes 100mg Take 100 [facility] (VITAMIN 1-06 mg by ity of B-6) 100 mg 18:01: mouth [place] tablet 24 daily. Medical Branch CALCIUM 2020-0 Yes Take by [facility] CARBONATE/V 1-06 mouth. ity of ITAMIN D3 18:: [place] (VITAMIN 24 Medical D-3 ORAL) Branch TRIAMTERENE 2018-09 Yes [id number] TAKE 2 [facility] -HYDROCHLOR 2-02 TABLETS BY it y of OTHIAZID 00:00: MOUTH [place] 37.5-25 mg 00 DAILY. Medical tablet Branch TRIAMTERENE 2018-09 Yes [id number] TAKE 2 [facility] -HYDROCHLOR 2-02 TABLETS BY it y of OTHIAZID 00:00: MOUTH [place] 37.5-25 mg 00 DAILY. Medical tablet Branch [facility] 2018-09 Yes [id number] TAKE 2 [facility] -HYDROCHLOR 2-02 TABLETS BY it y of OTHIAZID 00:00: MOUTH [place] 37.5-25 mg 00 DAILY. Medical tablet Branch [facility] 2018-09 Yes [id number] TAKE 2 [facility] -HYDROCHLOR 2-02 TABLETS BY it y of OTHIAZID 00:00: MOUTH [place] 37.5-25 mg 00 DAILY. Medical tablet Branch [facility] 2018-09 Yes [id number] TAKE 2 [facility] -HYDROCHLOR 2-02 TABLETS BY it y of OTHIAZID 00:00: MOUTH [place] 37.5-25 mg 00 DAILY. Medical tablet Branch [facility] 2018-09 Yes [id number] TAKE 2 [facility] -HYDROCHLOR 2-02 TABLETS BY it y of OTHIAZID 00:00: MOUTH [place] 37.5-25 mg 00 DAILY. Medical tablet Branch [facility] 2018-09 Yes [id number] TAKE 2 [facility] -HYDROCHLOR 2-02 TABLETS BY it y of OTHIAZID 00:00: MOUTH [place] 37.5-25 mg 00 DAILY. Medical tablet Branch [facility] 2018-09 Yes [id number] TAKE 2 [facility] -HYDROCHLOR 2-02 TABLETS BY it y of OTHIAZID 00:00: MOUTH [place] 37.5-25 mg 00 DAILY. Medical tablet Branch [facility] 2018-09 Yes [id number] TAKE 2 [facility] -HYDROCHLOR 2-02 TABLETS BY it y of OTHIAZID 00:00: MOUTH [place] 37.5-25 mg 00 DAILY. Medical tablet Branch [facility] 2018-09 Yes [id number] TAKE 2 [facility] -HYDROCHLOR 2-02 TABLETS BY it y of OTHIAZID 00:00: MOUTH [place] 37.5-25 mg 00 DAILY. Medical tablet Branch [facility] 2018-09 Yes [id number] TAKE 2 [facility] -HYDROCHLOR 2-02 TABLETS BY it y of OTHIAZID 00:00: MOUTH [place] 37.5-25 mg 00 DAILY. Medical tablet Branch [facility] 2018-09 Yes [id number] TAKE 2 [facility] -HYDROCHLOR 2-02 TABLETS BY it y of OTHIAZID 00:00: MOUTH [place] 37.5-25 mg 00 DAILY. Medical tablet Branch [facility] 2018-09 Yes [id number] TAKE 2 [facility] -HYDROCHLOR 2-02 TABLETS BY it y of OTHIAZID 00:00: MOUTH [place] 37.5-25 mg 00 DAILY. Medical tablet Branch [facility] 2018-09 Yes [id number] TAKE 2 [facility] -HYDROCHLOR 2-02 TABLETS BY it y of OTHIAZID 00:00: MOUTH [place] 37.5-25 mg 00 DAILY. Medical tablet Branch [facility] 2018-09 Yes [id number] TAKE 2 [facility] -HYDROCHLOR 2-02 TABLETS BY it y of OTHIAZID 00:00: MOUTH [place] 37.5-25 mg 00 DAILY. Medical tablet Branch [facility] 2018-09 Yes [id number] TAKE 2 [facility] -HYDROCHLOR 2-02 TABLETS BY it y of OTHIAZID 00:00: MOUTH [place] 37.5-25 mg 00 DAILY. Medical tablet Branch [facility] 2018-09 Yes [id number] TAKE 2 [facility] -HYDROCHLOR 2-02 TABLETS BY it y of OTHIAZID 00:00: MOUTH [place] 37.5-25 mg 00 DAILY. Medical tablet Branch [facility] 2018-09 Yes [id number] TAKE 2 [facility] -HYDROCHLOR 2-02 TABLETS BY it y of OTHIAZID 00:00: MOUTH [place] 37.5-25 mg 00 DAILY. Medical tablet Branch [facility] 2018-09 Yes [id number] TAKE 2 [facility] -HYDROCHLOR 2-02 TABLETS BY it y of OTHIAZID 00:00: MOUTH [place] 37.5-25 mg 00 DAILY. Medical tablet Branch [facility] 2018-09 Yes [id number] TAKE 2 [facility] -HYDROCHLOR 2-02 TABLETS BY it y of OTHIAZID 00:00: MOUTH [place] 37.5-25 mg 00 DAILY. Medical tablet Branch [facility] 2018-09 Yes [id number] TAKE 2 [facility] -HYDROCHLOR 2-02 TABLETS BY it y of OTHIAZID 00:00: MOUTH [place] 37.5-25 mg 00 DAILY. Medical tablet Branch [facility] 2018-09 Yes [id number] TAKE 2 [facility] -HYDROCHLOR 2-02 TABLETS BY it y of OTHIAZID 00:00: MOUTH [place] 37.5-25 mg 00 DAILY. Medical tablet Branch [facility] 2018-09 Yes [id number] TAKE 2 [facility] -HYDROCHLOR 2-02 TABLETS BY it y of OTHIAZID 00:00: MOUTH [place] 37.5-25 mg 00 DAILY. Medical tablet Branch [facility] 2018-09 Yes [id number] TAKE 2 [facility] -HYDROCHLOR 2-02 TABLETS BY it y of OTHIAZID 00:00: MOUTH [place] 37.5-25 mg 00 DAILY. Medical tablet Branch TRIAMTERENE 2018-09 Yes [id number] TAKE 2 [facility] -HYDROCHLOR 2-02 TABLETS BY it y of OTHIAZID 00:00: MOUTH [place] 37.5-25 mg 00 DAILY. Medical tablet Branch TRIAMTERENE 2018-09 Yes [id number] TAKE 2 [facility] -HYDROCHLOR 2-02 TABLETS BY it y of OTHIAZID 00:00: MOUTH [place] 37.5-25 mg 00 DAILY. Medical tablet Branch TRIAMTERENE 2018-09 Yes [id number] TAKE 2 [facility] -HYDROCHLOR 2-02 TABLETS BY it y of OTHIAZID 00:00: MOUTH [place] 37.5-25 mg 00 DAILY. Medical tablet Branch TRIAMTERENE 2018-09 Yes [id number] TAKE 2 [facility] -HYDROCHLOR 2-02 TABLETS BY it y of OTHIAZID 00:00: MOUTH [place] 37.5-25 mg 00 DAILY. Medical tablet Branch TRIAMTERENE 2018-09 Yes [id number] TAKE 2 [facility] -HYDROCHLOR 2-02 TABLETS BY it y of OTHIAZID 00:00: MOUTH [place] 37.5-25 mg 00 DAILY. Medical tablet Branch tiZANidine 2018-09 Yes [id number] 2mg Take 1-2 [facility] 2 mg tablet 1-20 tablets by it y of 00:00: mouth [place] 00 every 8 Medical (eight) Branch hours as needed (muscle pain or spasm). tiZANidine 2018-09 Yes [id number] 2mg Take 1-2 [facility] 2 mg tablet 1-20 tablets by it y of 00:00: mouth [place] 00 every 8 Medical (eight) Branch hours as needed (muscle pain or spasm). tiZANidine 2018-09 2020- No [id number] 2mg Take 1-2 [facility] 2 mg tablet 1-20 02-13 tablets by i ty of 00:00: 00:00 mouth [place] 00 :00 every 8 Medical (eight) Branch hours as needed (muscle pain or spasm). tiZANidine 2018-09 2020- No [id number] 2mg Take 1-2 [facility] 2 mg tablet 1-20 02-13 tablets by i ty of 00:00: 00:00 mouth [place] 00 :00 every 8 Medical (eight) Branch hours as needed (muscle pain or spasm). TRAZODONE 2018-09 Yes [id number] 100mg TAKE 1 [facility] 100 mg 0-08 TABLET BY ity of tablet 00:00: MOUTH AT [place] 00 BEDTIME. Medical FOR Branch INSOMNIA. TRAZODONE 2018-09 Yes [id number] 100mg TAKE 1 [facility] 100 mg 0-08 TABLET BY ity of tablet 00:00: MOUTH AT [place] 00 BEDTIME. Medical FOR Branch INSOMNIA. TRAZODONE 2018-09 Yes [id number] 100mg TAKE 1 [facility] 100 mg 0-08 TABLET BY ity of tablet 00:00: MOUTH AT [place] 00 BEDTIME. Medical FOR Branch INSOMNIA. TRAZODONE 2018-09 Yes [id number] 100mg TAKE 1 [facility] 100 mg 0-08 TABLET BY ity of tablet 00:00: MOUTH AT [place] 00 BEDTIME. Medical FOR Branch INSOMNIA. TRAZODONE 2018-09 Yes [id number] 100mg TAKE 1 [facility] 100 mg 0-08 TABLET BY ity of tablet 00:00: MOUTH AT [place] 00 BEDTIME. Medical FOR Branch INSOMNIA. TRAZODONE 2018-09 Yes [id number] 100mg TAKE 1 [facility] 100 mg 0-08 TABLET BY ity of tablet 00:00: MOUTH AT [place] [address] BEDTIME. Medical FOR Branch INSOMNIA. TRAZODONE 2018-09 Yes [id number] 100mg TAKE 1 [facility] 100 mg 0-08 TABLET BY ity of tablet 00:00: MOUTH AT [place] [address] BEDTIME. Medical FOR Branch INSOMNIA. TRAZODONE 2018-09 Yes [id number] 100mg TAKE 1 [facility] 100 mg 0-08 TABLET BY ity of tablet 00:00: MOUTH AT [place] [address] BEDTIME. Medical FOR Branch INSOMNIA. TRAZODONE 2018-09 Yes [id number] 100mg TAKE 1 [facility] 100 mg 0-08 TABLET BY ity of tablet 00:00: MOUTH AT [place] 00 BEDTIME. Medical FOR Branch INSOMNIA. TRAZODONE 2018-09 Yes [id number] 100mg TAKE 1 [facility] 100 mg 0-08 TABLET BY ity of tablet 00:00: MOUTH AT [place] 00 BEDTIME. Medical FOR Branch INSOMNIA. TRAZODONE 2018-09 Yes [id number] 100mg TAKE 1 [facility] 100 mg 0-08 TABLET BY ity of tablet 00:00: MOUTH AT [place] 00 BEDTIME. Medical FOR Branch INSOMNIA. TRAZODONE 2018-09 Yes [id number] 100mg TAKE 1 [facility] 100 mg 0-08 TABLET BY ity of tablet 00:00: MOUTH AT [place] 00 BEDTIME. Medical FOR Branch INSOMNIA. TRAZODONE 2018-09 Yes [id number] 100mg TAKE 1 [facility] 100 mg 0-08 TABLET BY ity of tablet 00:00: MOUTH AT [place] 00 BEDTIME. Medical FOR Branch INSOMNIA. TRAZODONE 2018-09 Yes [id number] 100mg TAKE 1 [facility] 100 mg 0-08 TABLET BY ity of tablet 00:00: MOUTH AT [place] 00 BEDTIME. Medical FOR Branch INSOMNIA. TRAZODONE 2018-09 Yes [id number] 100mg TAKE 1 [facility] 100 mg 0-08 TABLET BY ity of tablet 00:00: MOUTH AT [place] 00 BEDTIME. Medical FOR Branch INSOMNIA. TRAZODONE 2018-09 Yes [id number] 100mg TAKE 1 [facility] 100 mg 0-08 TABLET BY ity of tablet 00:00: MOUTH AT [place] 00 BEDTIME. Medical FOR Branch INSOMNIA. TRAZODONE 2018-09 Yes [id number] 100mg TAKE 1 [facility] 100 mg 0-08 TABLET BY ity of tablet 00:00: MOUTH AT [place] 00 BEDTIME. Medical FOR Branch INSOMNIA. TRAZODONE 2018-09 Yes [id number] 100mg TAKE 1 [facility] 100 mg 0-08 TABLET BY ity of tablet 00:00: MOUTH AT [place] 00 BEDTIME. Medical FOR [facility] INSOMNIA. TRAZODONE 2018-09 Yes [id number] 100mg TAKE 1 [facility] 100 mg 0-08 TABLET BY [facility] tablet 00:00: MOUTH AT [place] 00 BEDTIME. Medical FOR [facility] INSOMNIA. TRAZODONE 2018-09 Yes [id number] 100mg TAKE 1 [facility] 100 mg 0-08 TABLET BY [facility] tablet 00:00: MOUTH AT [place] 00 BEDTIME. Medical FOR [facility] INSOMNIA. TRAZODONE 2018-09 2020- No [id number] 100mg TAKE 1 [facility] 100 mg 0-08 04-06 TABLET BY [facility] tablet 00:00: 00:00 MOUTH AT [place] 00 :00 BEDTIME. Medical FOR [facility] INSOMNIA. cyclobenzap Yes [id number] 10mg Take 1 [facility] rine 10 mg 9-30 tablet by [facility] tablet 00:00: mouth 3 [place] 00 (three) Medical times [facility] daily. cyclobenzap Yes [id number] 10mg Take 1 [facility] rine 10 mg 9-30 tablet by [facility] tablet 00:00: mouth 3 (three) Medical times [facility] daily. cyclobenzap Yes [id number] 10mg Take 1 [facility] rine 10 mg 9-30 tablet by [facility] tablet 00:00: mouth (three) Medical times Branch daily. cyclobenzap Yes [id number] 10mg Take 1 [facility] rine 10 mg 9-30 tablet by [facility] tablet 00:00: mouth (three) Medical times Branch daily. cyclobenzap Yes [id number] 10mg Take 1 [facility] rine 10 mg 9-30 tablet by [facility] tablet 00:00: mouth (three) Medical times Branch daily. cyclobenzap Yes [id number] 10mg Take 1 [facility] rine 10 mg 9-30 tablet by [facility] tablet 00:00: mouth (three) Medical times [facility] daily. cyclobenzap Yes [id number] 10mg Take 1 [facility] rine 10 mg 9-30 tablet by [facility] tablet 00:00: mouth (three) Medical times Branch daily. cyclobenzap Yes [id number] 10mg Take 1 [facility] rine 10 mg 9-30 tablet by [facility] tablet 00:00: mouth (three) Medical times Branch daily. cyclobenzap Yes [id number] 10mg Take 1 [facility] rine 10 mg 9-30 tablet by [facility] tablet 00:00: mouth (three) Medical times Branch daily. cyclobenzap Yes [id number] 10mg Take 1 [facility] rine 10 mg 9-30 tablet by [facility] tablet 00:00: mouth (three) Medical times [facility] daily. cyclobenzap Yes [id number] 10mg Take 1 [facility] rine 10 mg 9-30 tablet by [facility] tablet 00:00: mouth 3 (three) Medical times Branch daily. cyclobenzap 2018- Yes [id number] 10mg Take 1 [facility] rine 10 mg 9-30 tablet by [facility] tablet 00:00: mouth 3 (three) Medical times [facility] daily. cyclobenzap Yes [id number] 10mg Take 1 [facility] rine 10 mg 9-30 tablet by [facility] tablet 00:00: mouth (three) Medical times Branch daily. cyclobenzap 2018- Yes [id number] 10mg Take 1 [facility] rine 10 mg 9-30 tablet by [facility] tablet 00:00: mouth (three) Medical times Branch daily. cyclobenzap 2018- Yes [id number] 10mg Take 1 [facility] rine 10 mg 9-30 tablet by [facility] tablet 00:00: mouth (three) Medical times Branch daily. cyclobenzap 2018-0 Yes [id number] 10mg Take 1 [facility] r[facility] 10 mg 9-30 tablet by [facility] tablet 00:00: mouth (three) Medical times Branch daily. cyclobenzap 2018- Yes [id number] 10mg Take 1 [facility] r[facility] 10 mg 9-30 tablet by [facility] tablet 00:00: mouth (three) Medical times Branch daily. cyclobenzap 2018- Yes [id number] 10mg Take 1 [facility] r[facility] 10 mg 9-30 tablet by [facility] tablet 00:00: mouth (three) Medical times Branch daily. cyclobenzap Yes [id number] 10mg Take 1 [facility] rine 10 mg 9-30 tablet by [facility] tablet 00:00: mouth (three) Medical times Branch daily. cyclobenzap 2018-0 Yes [id number] 10mg Take 1 [facility] r[facility] 10 mg 9-30 tablet by [facility] tablet 00:00: mouth (three) Medical times Branch daily. cyclobenzap 2018-0 Yes [id number] 10mg Take 1 [facility] rine 10 mg 9-30 tablet by [facility] tablet 00:00: mouth (three) Medical times [facility] daily. cyclobenzap 2018- Yes [id number] 10mg Take 1 [facility] r[facility] 10 mg 9-30 tablet by [facility] tablet 00:00: mouth (three) Medical times [facility] daily. cyclobenzap 2019-0 Yes [id number] 10mg Take 1 [facility] r[facility] 10 mg 9-30 tablet by [facility] tablet 00:00: mouth 3 (three) Medical times Branch daily. cyclobenzap 2018- Yes [id number] 10mg Take 1 [facility] rine 10 mg 9-30 tablet by [facility] tablet 00:00: mouth 3 (three) Medical times [facility] daily. cyclobenzap Yes [id number] 10mg Take 1 [facility] r[facility] 10 mg 9-30 tablet by [facility] tablet 00:00: mouth 3 (three) Medical times Branch daily. cyclobenzap Yes [id number] 10mg Take 1 [facility] r[facility] 10 mg 9-30 tablet by [facility] tablet 00:00: mouth 3 (three) Medical times Branch daily. cyclobenzap Yes [id number] 10mg Take 1 [facility] rine 10 mg 9-30 tablet by [facility] tablet 00:00: mouth 3 (three) Medical times Branch daily. cyclobenzap Yes [id number] 10mg Take 1 [facility] r[facility] 10 mg 9-30 tablet by [facility] tablet 00:00: mouth 3 (three) Medical times Branch daily. cyclobenzap Yes [id number] 10mg Take 1 [facility] r[facility] 10 mg 9-30 tablet by [facility] tablet 00:00: mouth (three) Medical times Branch daily. cyclobenzap Yes [id number] 10mg Take 1 [facility] rine 10 mg 9-30 tablet by [facility] tablet 00:00: mouth (three) Medical times [facility] daily. cyclobenzap Yes [id number] 10mg Take 1 [facility] r[facility] 10 mg 9-30 tablet by [facility] tablet 00:00: mouth (three) Medical times [facility] daily. cyclobenzap Yes [id number] 10mg Take 1 [facility] r[facility] 10 mg 9-30 tablet by [facility] tablet 00:00: mouth (three) Medical times [facility] daily. cyclobenzap Yes [id number] 10mg Take 1 [facility] rine 10 mg 9-30 tablet by [facility] tablet 00:00: mouth 3 (three) Medical times [facility] daily. cyclobenzap Yes [id number] 10mg Take 1 [facility] rine 10 mg 9-30 tablet by [facility] tablet 00:00: mouth 3 (three) Medical times [facility] daily. cyclobenzap Yes [id number] 10mg Take 1 [facility] r[facility] 10 mg 9-30 tablet by [facility] tablet 00:00: mouth 3 (three) Medical times [facility] daily. cyclobenzap Yes [id number] 10mg Take 1 [facility] rine 10 mg 9-30 tablet by [facility] tablet 00:00: mouth 3 [place] 00 (three) Medical times Branch daily. cyclobenzap Yes [id number] 10mg Take 1 [facility] rine 10 mg 9-30 tablet by [facility] tablet 00:00: mouth 3 [place] 00 (three) Medical times Branch daily. cyclobenzap Yes [id number] 10mg Take 1 [facility] rine 10 mg 9-30 tablet by [facility] tablet 00:00: mouth 3 [place] 00 (three) Medical times Branch daily. cyclobenzap Yes [id number] 10mg Take 1 [facility] rine 10 mg 9-30 tablet by [facility] tablet 00:00: mouth 3 [place] 00 (three) Medical times Branch daily. METFORMIN Yes [id number] TAKE 1 [facility] [place] [facility] 500 mg 9-30 TABLET BY [facility] f 24 hr 00:00: MOUTH [place] tablet 00 EVERY DAY Medical WITH Branch BREAKFAST naproxen Yes [id number] 500mg Take 1 [facility] (NAPROSYN) 9-30 tablet by [facility] 500 mg 00:00: mouth 2 [place] tablet 00 (two) Medical times Branch daily with meals. cyclobenzap Yes [id number] 10mg Take 1 [facility] rine 10 mg 9-30 tablet by [facility] tablet 00:00: mouth 3 [place] 00 (three) Medical times Branch daily. METFORMIN Yes [id number] TAKE 1 [facility] [place] ER 500 mg 9-30 TABLET BY [facility] o f 24 hr 00:00: MOUTH [place] tablet 00 EVERY DAY Medical WITH Branch BREAKFAST naproxen 2018- Yes [id number] 500mg Take 1 [facility] (NAPROSYN) 9-30 tablet by [facility] 500 mg 00:00: mouth 2 [place] tablet 00 (two) Medical times Branch daily with meals. cyclobenzap Yes [id number] 10mg Take 1 [facility] rine 10 mg 9-30 tablet by [facility] tablet 00:00: mouth 3 [place] 00 (three) Medical times Branch daily. METFORMIN 2019- Yes [id number] TAKE 1 [facility] [place] ER 500 mg 9-30 TABLET BY [facility] o f 24 hr 00:00: MOUTH [place] tablet 00 EVERY DAY Medical WITH Branch BREAKFAST cyclobenzap Yes [id number] 10mg Take 1 [facility] rine 10 mg 9-30 tablet by [facility] tablet 00:00: mouth 3 [place] 00 (three) Medical times Branch daily. METFORMIN 2018- Yes [id number] TAKE 1 [facility] [place] ER 500 mg 9-30 TABLET BY [facility] o f 24 hr 00:00: MOUTH [place] tablet 00 EVERY DAY Medical WITH Branch BREAKFAST cyclobenzap Yes [id number] 10mg Take 1 [facility] rine 10 mg 9-30 tablet by [facility] tablet 00:00: mouth 3 [place] 00 (three) Medical times Branch daily. METFORMIN Yes [id number] TAKE 1 [facility] [place] ER 500 mg 9-30 TABLET BY [facility] o f 24 hr 00:00: MOUTH [place] tablet 00 EVERY DAY Medical WITH Branch BREAKFAST cyclobenzap Yes [id number] 10mg Take 1 [facility] rine 10 mg 9-30 tablet by [facility] tablet 00:00: mouth 3 [place] 00 (three) Medical times Branch daily. METFORMIN 2018- Yes [id number] TAKE 1 [facility] [place] [facility] 500 mg 9-30 TABLET BY [facility] o f 24 hr 00:00: MOUTH [place] tablet 00 EVERY DAY Medical WITH Branch BREAKFAST cyclobenzap Yes [id number] 10mg Take 1 [facility] r[facility] 10 mg 9-30 tablet by [facility] tablet 00:00: mouth 3 [place] 00 (three) Medical times Branch daily. METFORMIN Yes [id number] TAKE 1 [facility] [place] ER 500 mg 9-30 TABLET BY [facility] o f 24 hr 00:00: MOUTH [place] tablet 00 EVERY DAY Medical WITH Branch BREAKFAST cyclobenzap Yes [id number] 10mg Take 1 [facility] rine 10 mg 9-30 tablet by [facility] tablet 00:00: mouth 3 [place] 00 (three) Medical times Branch daily. METFORMIN 2018- Yes [id number] TAKE 1 [facility] [place] [facility] 500 mg 9-30 TABLET BY [facility] o f 24 hr 00:00: MOUTH [place] tablet 00 EVERY DAY Medical WITH Branch BREAKFAST cyclobenzap Yes [id number] 10mg Take 1 [facility] rine 10 mg 9-30 tablet by [facility] tablet 00:00: mouth 3 [place] 00 (three) Medical times Branch daily. METFORMIN 2018- Yes [id number] TAKE 1 [facility] [place] [facility] 500 mg 9-30 TABLET BY [facility] o f 24 hr 00:00: MOUTH [place] tablet 00 EVERY DAY Medical WITH Branch BREAKFAST cyclobenzap Yes [id number] 10mg Take 1 [facility] rine 10 mg 9-30 tablet by [facility] tablet 00:00: mouth 3 [place] 00 (three) Medical times Branch daily. METFORMIN 2018- Yes [id number] TAKE 1 [facility] [place] [facility] 500 mg 9-30 TABLET BY [facility] o f 24 hr 00:00: MOUTH [place] tablet 00 EVERY DAY Medical WITH Branch BREAKFAST cyclobenzap Yes [id number] 10mg Take 1 [facility] r[facility] 10 mg 9-30 tablet by [facility] tablet 00:00: mouth 3 [place] 00 (three) Medical times Branch daily. METFORMIN Yes [id number] TAKE 1 [facility] [place] ER 500 mg 9-30 TABLET BY [facility] o f 24 hr 00:00: MOUTH [place] tablet 00 EVERY DAY Medical WITH Branch BREAKFAST cyclobenzap Yes [id number] 10mg Take 1 [facility] rine 10 mg 9-30 tablet by [facility] tablet 00:00: mouth 3 [place] 00 (three) Medical times Branch daily. METFORMIN 2018- Yes [id number] TAKE 1 [facility] [place] ER 500 mg 9-30 TABLET BY [facility] o f 24 hr 00:00: MOUTH [place] tablet 00 EVERY DAY Medical WITH Branch BREAKFAST cyclobenzap Yes [id number] 10mg Take 1 [facility] rine 10 mg 9-30 tablet by [facility] tablet 00:00: mouth 3 [place] 00 (three) Medical times Branch daily. METFORMIN 2018- Yes [id number] TAKE 1 [facility] [place] ER 500 mg 9-30 TABLET BY [facility] o f 24 hr 00:00: MOUTH [place] tablet 00 EVERY DAY Medical WITH Branch BREAKFAST cyclobenzap Yes [id number] 10mg Take 1 [facility] rine 10 mg 9-30 tablet by [facility] tablet 00:00: mouth 3 [place] 00 (three) Medical times Branch daily. METFORMIN 2018- Yes [id number] TAKE 1 [facility] [place] ER 500 mg 9-30 TABLET BY [facility] o f 24 hr 00:00: MOUTH [place] tablet 00 EVERY DAY Medical WITH Branch BREAKFAST cyclobenzap Yes [id number] 10mg Take 1 [facility] rine 10 mg 9-30 tablet by [facility] tablet 00:00: mouth 3 [place] 00 (three) Medical times Branch daily. cyclobenzap Yes [id number] 10mg Take 1 [facility] rine 10 mg 9-30 tablet by [facility] tablet 00:00: mouth 3 [place] 00 (three) Medical times Branch daily. cyclobenzap Yes [id number] 10mg Take 1 [facility] rine 10 mg 9-30 tablet by [facility] tablet 00:00: mouth 3 [place] 00 (three) Medical times Branch daily. cyclobenzap 2020- No [id number] 10mg Take 1 [facility] r[facility] 10 mg 9-30 10-05 tablet by [facility] tablet 00:00: 00:00 mouth 3 [place] 00 :00 (three) Medical times Branch daily. cyclobenzap 2020- No [id number] 10mg Take 1 [facility] rine 10 mg 9-30 10-05 tablet by [facility] tablet 00:00: 00:00 mouth 3 [place] 00 :00 (three) Medical times Branch daily. METFORMIN 2020- No [id number] TAKE 1 [facility] ER 500 mg 9-30 03-24 TABLET BY [facility] of 24 hr 00:00: 00:00 MOUTH [place] tablet 00 :00 EVERY DAY Medical WITH Branch BREAKFAST METFORMIN 2020- No [id number] TAKE 1 [facility] ER 500 mg 9-30 03-24 TABLET BY [facility] of 24 hr 00:00: 00:00 MOUTH [place] tablet 00 :00 EVERY DAY Medical WITH Branch BREAKFAST naproxen 2020- No [id number] 500mg Take 1 [facility] (NAPROSYN) 9-30 02-13 tablet by [facility] of 500 mg 00:00: 00:00 mouth 2 [place] tablet 00 :00 (two) Medical times Branch daily with meals. naproxen 2020- No [id number] 500mg Take 1 [facility] (NAPROSYN) 9-30 02-13 tablet by [facility] of 500 mg 00:00: 00:00 mouth 2 [place] tablet 00 :00 (two) Medical times Branch daily with meals. peg-electro Yes [id number] 4000mL Take 4,000 [facility] lyte soln 9-20 mL by [facility] of 236-22.74-6 00:00: mouth [place] .74 -5.86 00 SEE-INSTRU Medi kacey gram CTIONS. Branch solution Take as directed Diclofenac Yes [id number] Apply 2 to [facility] Sodium 1 % 9-16 4 grams [facility] of gel 00:00: 3-4 times [place] 00 daily as Medical needed. Branch Diclofenac Yes [id number] Apply 2 to [facility] Sodium 1 % 9-16 4 grams [facility] of gel 00:00: 3-4 times [place] 00 daily as Medical needed. Branch Diclofenac Yes [id number] Apply 2 to [facility] Sodium 1 % 9-16 4 grams [facility] of gel 00:00: 3-4 times [place] 00 daily as Medical needed. Branch Diclofenac Yes [id number] Apply 2 to [facility] Sodium 1 % 9-16 4 grams [facility] of gel 00:00: 3-4 times [place] 00 daily as Medical needed. Branch Diclofenac Yes [id number] Apply 2 to [facility] Sodium 1 % 9-16 4 grams [facility]y of gel 00:00: 3-4 times [place] 00 daily as Medical needed. Branch Diclofenac Yes [id number] Apply 2 to [facility] Sodium 1 % 9-16 4 grams [facility] of gel 00:00: 3-4 times [place] 00 daily as Medical needed. Branch Diclofenac Yes [id number] Apply 2 to [facility] Sodium 1 % 9-16 4 grams [facility] of gel 00:00: 3-4 times [place] 00 daily as Medical needed. Branch Diclofenac Yes [id number] Apply 2 to [facility] Sodium 1 % 9-16 4 grams [facility]y of gel 00:00: 3-4 times [place] 00 daily as Medical needed. Branch Diclofenac Yes [id number] Apply 2 to [facility] Sodium 1 % 9-16 4 grams ity of gel 00:00: 3-4 times [place] 00 daily as Medical needed. Branch Diclofenac Yes [id number] Apply 2 to [facility] Sodium 1 % 9-16 4 grams [facility] of gel 00:00: 3-4 times [place] 00 daily as Medical needed. Branch Diclofenac Yes [id number] Apply 2 to [facility] Sodium 1 % 9-16 4 grams [facility]y of gel 00:00: 3-4 times [place] 00 daily as Medical needed. Branch Diclofenac Yes [id number] Apply 2 to [facility] Sodium 1 % 9-16 4 grams [facility]y of gel 00:00: 3-4 times [place] 00 daily as Medical needed. Branch Diclofenac Yes [id number] Apply 2 to [facility] Sodium 1 % 9-16 4 grams [facility]y of gel 00:00: 3-4 times [place] 00 daily as Medical needed. Branch Diclofenac Yes [id number] Apply 2 to [facility] Sodium 1 % 9-16 4 grams [facility]y of gel 00:00: 3-4 times [place] 00 daily as Medical needed. Branch Diclofenac Yes [id number] Apply 2 to [facility] Sodium 1 % 9-16 4 grams [facility]y of gel 00:00: 3-4 times [place] 00 daily as Medical needed. Branch Diclofenac Yes [id number] Apply 2 to [facility] Sodium 1 % 9-16 4 grams [facility] of gel 00:00: 3-4 times [place] 00 daily as Medical needed. Branch Diclofenac Yes [id number] Apply 2 to [facility] Sodium 1 % 9-16 4 grams ity of gel 00:00: 3-4 times [place] 00 daily as Medical needed. Branch Diclofenac Yes [id number] Apply 2 to [facility] Sodium 1 % 9-16 4 grams [facility]y of gel 00:00: 3-4 times [place] 00 daily as Medical needed. Branch Diclofenac Yes [id number] Apply 2 to [facility] Sodium 1 % 9-16 4 grams [facility]y of gel 00:00: 3-4 times [place] 00 daily as Medical needed. Branch Diclofenac Yes [id number] Apply 2 to [facility] Sodium 1 % 9-16 4 grams [facility]y of gel 00:00: 3-4 times [place] 00 daily as Medical needed. Branch Diclofenac Yes [id number] Apply 2 to [facility] Sodium 1 % 9-16 4 grams [facility]y of gel 00:00: 3-4 times [place] 00 daily as Medical needed. Branch Diclofenac Yes [id number] Apply 2 to [facility] Sodium 1 % 9-16 4 grams [facility]y of gel 00:00: 3-4 times [place] 00 daily as Medical needed. Branch Diclofenac Yes [id number] Apply 2 to [facility] Sodium 1 % 9-16 4 grams [facility]y of gel 00:00: 3-4 times [place] 00 daily as Medical needed. Branch Diclofenac Yes [id number] Apply 2 to [facility] Sodium 1 % 9-16 4 grams [facility]y of gel 00:00: 3-4 times [place] 00 daily as Medical needed. Branch Diclofenac Yes [id number] Apply 2 to [facility] Sodium 1 % 9-16 4 grams [facility]y of gel 00:00: 3-4 times [place] 00 daily as Medical needed. Branch Diclofenac Yes [id number] Apply 2 to [facility] Sodium 1 % 9-16 4 grams ity of gel 00:00: 3-4 times [place] 00 daily as Medical needed. Branch Diclofenac Yes [id number] Apply 2 to [facility] Sodium 1 % 9-16 4 grams ity of gel 00:00: 3-4 times [place] 00 daily as Medical needed. Branch Diclofenac Yes [id number] Apply 2 to [facility] Sodium 1 % 9-16 4 grams ity of gel 00:00: 3-4 times [place] 00 daily as Medical needed. Branch Diclofenac Yes [id number] Apply 2 to [facility] Sodium 1 % 9-16 4 grams ity of gel 00:00: 3-4 times [place] 00 daily as Medical needed. Branch Diclofenac Yes [id number] Apply 2 to [facility] Sodium 1 % 9-16 4 grams ity of gel 00:00: 3-4 times [place] 00 daily as Medical needed. Branch Diclofenac Yes [id number] Apply 2 to [facility] Sodium 1 % 9-16 4 grams ity of gel 00:00: 3-4 times [place] 00 daily as Medical needed. Branch Diclofenac Yes [id number] Apply 2 to [facility] Sodium 1 % 9-16 4 grams ity of gel 00:00: 3-4 times [place] 00 daily as Medical needed. Branch Diclofenac Yes [id number] Apply 2 to [facility] Sodium 1 % 9-16 4 grams ity of gel 00:00: 3-4 times [place] 00 daily as Medical needed. Branch Diclofenac Yes [id number] Apply 2 to [facility] Sodium 1 % 9-16 4 grams ity of gel 00:00: 3-4 times [place] 00 daily as Medical needed. Branch Diclofenac Yes [id number] Apply 2 to [facility] Sodium 1 % 9-16 4 grams ity of gel 00:00: 3-4 times [place] 00 daily as Medical needed. Branch Diclofenac Yes [id number] Apply 2 to [facility] Sodium 1 % 9-16 4 grams ity of gel 00:00: 3-4 times [place] 00 daily as Medical needed. Branch Diclofenac Yes [id number] Apply 2 to [facility] Sodium 1 % 9-16 4 grams ity of gel 00:00: 3-4 times [place] 00 daily as Medical needed. Branch Diclofenac Yes [id number] Apply 2 to [facility] Sodium 1 % 9-16 4 grams ity of gel 00:00: 3-4 times [place] 00 daily as Medical needed. Branch Diclofenac Yes [id number] Apply 2 to [facility] Sodium 1 % 9-16 4 grams ity of gel 00:00: 3-4 times [place] 00 daily as Medical needed. Branch Diclofenac Yes [id number] Apply 2 to [facility] Sodium 1 % 9-16 4 grams ity of gel 00:00: 3-4 times [place] 00 daily as Medical needed. Branch Diclofenac Yes [id number] Apply 2 to [facility] Sodium 1 % 9-16 4 grams ity of gel 00:00: 3-4 times [place] 00 daily as Medical needed. Branch Diclofenac Yes [id number] Apply 2 to [facility] Sodium 1 % 9-16 4 grams ity of gel 00:00: 3-4 times [place] 00 daily as Medical needed. Branch Diclofenac Yes [id number] Apply 2 to [facility] Sodium 1 % 9-16 4 grams ity of gel 00:00: 3-4 times [place] 00 daily as Medical needed. Branch Diclofenac Yes [id number] Apply 2 to [facility] Sodium 1 % 9-16 4 grams ity of gel 00:00: 3-4 times [place] 00 daily as Medical needed. Branch Diclofenac Yes [id number] Apply 2 to [facility] Sodium 1 % 9-16 4 grams ity of gel 00:00: 3-4 times [place] 00 daily as Medical needed. Branch Diclofenac Yes [id number] Apply 2 to [facility] Sodium 1 % 9-16 4 grams ity of gel 00:00: 3-4 times [place] 00 daily as Medical needed. Branch Diclofenac Yes [id number] Apply 2 to [facility] Sodium 1 % 9-16 4 grams ity of gel 00:00: 3-4 times [place] 00 daily as Medical needed. Branch Diclofenac Yes [id number] Apply 2 to [facility] Sodium 1 % 9-16 4 grams ity of gel 00:00: 3-4 times [place] 00 daily as Medical needed. Branch Diclofenac Yes [id number] Apply 2 to [facility] Sodium 1 % 9-16 4 grams ity of gel 00:00: 3-4 times [place] 00 daily as Medical needed. Branch Diclofenac Yes [id number] Apply 2 to [facility] Sodium 1 % 9-16 4 grams ity of gel 00:00: 3-4 times [place] 00 daily as Medical needed. Branch Diclofenac Yes [id number] Apply 2 to [facility] Sodium 1 % 9-16 4 grams ity of gel 00:00: 3-4 times [place] 00 daily as Medical needed. Branch Diclofenac Yes [id number] Apply 2 to [facility] Sodium 1 % 9-16 4 grams ity of gel 00:00: 3-4 times [place] 00 daily as Medical needed. Branch Diclofenac Yes [id number] Apply 2 to [facility] Sodium 1 % 9-16 4 grams ity of gel 00:00: 3-4 times [place] 00 daily as Medical needed. Branch Diclofenac Yes [id number] Apply 2 to [facility] Sodium 1 % 9-16 4 grams ity of gel 00:00: 3-4 times [place] 00 daily as Medical needed. Branch Diclofenac Yes [id number] Apply 2 to [facility] Sodium 1 % 9-16 4 grams ity of gel 00:00: 3-4 times [place] 00 daily as Medical needed. Branch Diclofenac Yes [id number] Apply 2 to [facility] Sodium 1 % 9-16 4 grams ity of gel 00:00: 3-4 times [place] 00 daily as Medical needed. Branch Diclofenac Yes [id number] Apply 2 to [facility] Sodium 1 % 9-16 4 grams ity of gel 00:00: 3-4 times [place] 00 daily as Medical needed. Branch Diclofenac Yes [id number] Apply 2 to [facility] Sodium 1 % 9-16 4 grams ity of gel 00:00: 3-4 times [place] 00 daily as Medical needed. Branch Diclofenac Yes [id number] Apply 2 to [facility] Sodium 1 % 9-16 4 grams ity of gel 00:00: 3-4 times [place] 00 daily as Medical needed. Branch Diclofenac Yes [id number] Apply 2 to [facility] Sodium 1 % 9-16 4 grams ity of gel 00:00: 3-4 times [place] 00 daily as Medical needed. Branch Diclofenac Yes [id number] Apply 2 to [facility] Sodium 1 % 9-16 4 grams ity of gel 00:00: 3-4 times [place] 00 daily as Medical needed. Branch Diclofenac Yes [id number] Apply 2 to [facility] Sodium 1 % 9-16 4 grams ity of gel 00:00: 3-4 times [place] 00 daily as Medical needed. [facility] Diclofenac Yes [id number] Apply 2 to [facility] Sodium 1 % 9-16 4 grams ity of gel 00:00: 3-4 times [place] 00 daily as Medical needed. [facility] Diclofenac Yes [id number] Apply 2 to [facility] Sodium 1 % 9-16 4 grams ity of gel 00:00: 3-4 times [place] 00 daily as Medical needed. [facility] Diclofenac Yes [id number] Apply 2 to [facility] Sodium 1 % 9-16 4 grams ity of gel 00:00: 3-4 times [place] 00 daily as Medical needed. [facility] Diclofenac Yes [id number] Apply 2 to [facility] Sodium 1 % 9-16 4 grams ity of gel 00:00: 3-4 times [place] 00 daily as Medical needed. [facility] Diclofenac Yes [id number] Apply 2 to [facility] Sodium 1 % 9-16 4 grams ity of gel 00:00: 3-4 times [place] 00 daily as Medical needed. [facility] Diclofenac Yes [id number] Apply 2 to [facility] Sodium 1 % 9-16 4 grams ity of gel 00:00: 3-4 times [place] 00 daily as Medical needed. [facility] Diclofenac Yes [id number] Apply 2 to [facility] Sodium 1 % 9-16 4 grams ity of gel 00:00: 3-4 times [place] 00 daily as Medical needed. [facility] methocarbam Yes [id number] 750mg Take 1 [facility] ol 9-16 tablet by ity of (ROBAXIN-75 00:00: mouth 4 [place] as 0) 750 mg 00 (four) Medical tablet times [place] daily as needed for Pain (scale 1-3). Diclofenac Yes [id number] Apply 2 to [facility] Sodium 1 % 9-16 4 grams ity of gel 00:00: 3-4 times [place] 00 daily as Medical needed. [facility] Diclofenac Yes [id number] Apply 2 to [facility] Sodium 1 % 9-16 4 grams ity of gel 00:00: 3-4 times [place] 00 daily as Medical needed. [facility] Diclofenac Yes [id number] Apply 2 to [facility] Sodium 1 % 9-16 4 grams ity of gel 00:00: 3-4 times [place] 00 daily as Medical needed. [facility] Diclofenac Yes [id number] Apply 2 to [facility] Sodium 1 % 9-16 4 grams ity of gel 00:00: 3-4 times [place] 00 daily as Medical needed. [facility] Diclofenac Yes [id number] Apply 2 to [facility] Sodium 1 % 9-16 4 grams ity of gel 00:00: 3-4 times [place] 00 daily as Medical needed. [facility] Diclofenac Yes [id number] Apply 2 to [facility] Sodium 1 % 9-16 4 grams ity of gel 00:00: 3-4 times [place] 00 daily as Medical needed. [facility] Diclofenac Yes [id number] Apply 2 to [facility] Sodium 1 % 9-16 4 grams ity of gel 00:00: 3-4 times [place] 00 daily as Medical needed. [facility] Diclofenac Yes [id number] Apply 2 to [facility] Sodium 1 % 9-16 4 grams ity of gel 00:00: 3-4 times [place] 00 daily as Medical needed. [facility] Diclofenac Yes [id number] Apply 2 to [facility] Sodium 1 % 9-16 4 grams ity of gel 00:00: 3-4 times [place] 00 daily as Medical needed. [facility] Diclofenac Yes [id number] Apply 2 to [facility] Sodium 1 % 9-16 4 grams ity of gel 00:00: 3-4 times [place] 00 daily as Medical needed. [facility] [place] methocarbam Yes [id number] 750mg Take 1 [facility] ol 9-16 tablet by ity of (ROBAXIN-75 00:00: mouth 4 [place] as 0) 750 mg 00 (four) Medical tablet times Branch daily as needed for Pain (scale 1-3). Diclofenac Yes [id number] Apply 2 to [facility] Sodium 1 % 9-16 4 grams ity of gel 00:00: 3-4 times [place] 00 daily as Medical needed. [facility] Diclofenac Yes [id number] Apply 2 to [facility] Sodium 1 % 9-16 4 grams ity of gel 00:00: 3-4 times [place] 00 daily as Medical needed. [facility] Diclofenac Yes [id number] Apply 2 to [facility] Sodium 1 % 9-16 4 grams ity of gel 00:00: 3-4 times [place] 00 daily as Medical needed. [facility] Diclofenac Yes [id number] Apply 2 to [facility] Sodium 1 % 9-16 4 grams ity of gel 00:00: 3-4 times [place] 00 daily as Medical needed. [facility] Diclofenac Yes [id number] Apply 2 to [facility] Sodium 1 % 9-16 4 grams ity of gel 00:00: 3-4 times [place] 00 daily as Medical needed. [facility] Diclofenac Yes [id number] Apply 2 to [facility] Sodium 1 % 9-16 4 grams ity of gel 00:00: 3-4 times [place] 00 daily as Medical needed. [facility] Diclofenac Yes [id number] Apply 2 to [facility] Sodium 1 % 9-16 4 grams ity of gel 00:00: 3-4 times [place] 00 daily as Medical needed. [facility] Diclofenac Yes [id number] Apply 2 to [facility] Sodium 1 % 9-16 4 grams ity of gel 00:00: 3-4 times [place] 00 daily as Medical needed. [facility] Diclofenac Yes [id number] Apply 2 to [facility] Sodium 1 % 9-16 4 grams ity of gel 00:00: 3-4 times [place] 00 daily as Medical needed. [facility] Diclofenac Yes [id number] Apply 2 to [facility] Sodium 1 % 9-16 4 grams ity of gel 00:00: 3-4 times [place] 00 daily as Medical needed. [facility] methocarbam Yes [id number] 750mg Take 1 [facility] ol 9-16 tablet by ity of (ROBAXIN-75 00:00: mouth 4 [place] 0) 750 mg 00 (four) Medical tablet times Branch daily as needed for Pain (scale 1-3). Diclofenac Yes [id number] Apply 2 to [facility] Sodium 1 % 9-16 4 grams ity of gel 00:00: 3-4 times [place] 00 daily as Medical needed. [facility] Diclofenac Yes [id number] Apply 2 to [facility] Sodium 1 % 9-16 4 grams ity of gel 00:00: 3-4 times [place] 00 daily as Medical needed. [facility] Diclofenac Yes [id number] Apply 2 to [facility] Sodium 1 % 9-16 4 grams ity of gel 00:00: 3-4 times [place] 00 daily as Medical needed. [facility] Diclofenac Yes [id number] Apply 2 to [facility] Sodium 1 % 9-16 4 grams ity of gel 00:00: 3-4 times [place] 00 daily as Medical needed. [facility] Diclofenac Yes [id number] Apply 2 to [facility] Sodium 1 % 9-16 4 grams ity of gel 00:00: 3-4 times [place] 00 daily as Medical needed. [facility] Diclofenac Yes [id number] Apply 2 to [facility] Sodium 1 % 9-16 4 grams ity of gel 00:00: 3-4 times [place] 00 daily as Medical needed. [facility] Diclofenac Yes [id number] Apply 2 to [facility] Sodium 1 % 9-16 4 grams ity of gel 00:00: 3-4 times [place] 00 daily as Medical needed. [facility] Diclofenac Yes [id number] Apply 2 to [facility] Sodium 1 % 9-16 4 grams ity of gel 00:00: 3-4 times [place] 00 daily as Medical needed. [facility] methocarbam Yes [id number] 750mg Take 1 [facility] ol 9-16 tablet by ity of (ROBAXIN-75 00:00: mouth 4 [place] as 0) 750 mg 00 (four) Medical tablet times [facility] daily as needed for Pain (scale 1-3). Diclofenac Yes [id number] Apply 2 to [facility] Sodium 1 % 9-16 4 grams ity of gel 00:00: 3-4 times [place] 00 daily as Medical needed. [facility] Diclofenac Yes [id number] Apply 2 to [facility] Sodium 1 % 9-16 4 grams ity of gel 00:00: 3-4 times [place] 00 daily as Medical needed. [facility] Diclofenac Yes [id number] Apply 2 to [facility] Sodium 1 % 9-16 4 grams ity of gel 00:00: 3-4 times [place] 00 daily as Medical needed. [facility] Diclofenac Yes [id number] Apply 2 to [facility] Sodium 1 % 9-16 4 grams ity of gel 00:00: 3-4 times [place] 00 daily as Medical needed. [facility] Diclofenac Yes [id number] Apply 2 to [facility] Sodium 1 % 9-16 4 grams ity of gel 00:00: 3-4 times [place] 00 daily as Medical needed. [facility] Diclofenac Yes [id number] Apply 2 to [facility] Sodium 1 % 9-16 4 grams ity of gel 00:00: 3-4 times [place] 00 daily as Medical needed. [facility] Diclofenac Yes [id number] Apply 2 to [facility] Sodium 1 % 9-16 4 grams ity of gel 00:00: 3-4 times [place] 00 daily as Medical needed. [facility] Diclofenac Yes [id number] Apply 2 to [facility] Sodium 1 % 9-16 4 grams it[facility] of gel 00:00: 3-4 times [place] 00 daily as Medical needed. [facility] methocarbam Yes [id number] 750mg Take 1 [facility] ol 9-16 tablet by ity of (ROBAXIN-75 00:00: mouth 4 [place] as 0) 750 mg 00 (four) Medical tablet times [facility] daily as needed for Pain (scale 1-3). Diclofenac Yes [id number] Apply 2 to [facility] Sodium 1 % 9-16 4 grams it[facility] of gel 00:00: 3-4 times [place] 00 daily as Medical needed. [facility] Diclofenac Yes [id number] Apply 2 to [facility] Sodium 1 % 9-16 4 grams it[facility] of gel 00:00: 3-4 times [place] 00 daily as Medical needed. [facility] Diclofenac Yes [id number] Apply 2 to [facility] Sodium 1 % 9-16 4 grams ity of gel 00:00: 3-4 times [place] 00 daily as Medical needed. [facility] Diclofenac Yes [id number] Apply 2 to [facility] Sodium 1 % 9-16 4 grams ity of gel 00:00: 3-4 times [place] 00 daily as Medical needed. [facility] Diclofenac Yes [id number] Apply 2 to [facility] Sodium 1 % 9-16 4 grams ity of gel 00:00: 3-4 times [place] 00 daily as Medical needed. [facility] Diclofenac Yes [id number] Apply 2 to [facility] Sodium 1 % 9-16 4 grams [facility] of gel 00:00: 3-4 times [place] 00 daily as Medical needed. [facility] Diclofenac Yes [id number] Apply 2 to [facility] Sodium 1 % 9-16 4 grams it[facility] of gel 00:00: 3-4 times [place] 00 daily as Medical needed. [facility] methocarbam Yes [id number] 750mg Take 1 [facility] ol 9-16 tablet by ity of (ROBAXIN-75 00:00: mouth 4 [place] 0) 750 mg 00 (four) Medical tablet times [facility] daily as needed for Pain (scale 1-3). Diclofenac Yes [id number] Apply 2 to [facility] Sodium 1 % 9-16 4 grams ity of gel 00:00: 3-4 times [place] 00 daily as Medical needed. [facility] Diclofenac Yes [id number] Apply 2 to [facility] Sodium 1 % 9-16 4 grams ity of gel 00:00: 3-4 times [place] 00 daily as Medical needed. Branch Diclofenac Yes [id number] Apply 2 to [facility] Sodium 1 % 9-16 4 grams ity of gel 00:00: 3-4 times [place] 00 daily as Medical needed. Branch Diclofenac Yes [id number] Apply 2 to [facility] Sodium 1 % 9-16 4 grams ity of gel 00:00: 3-4 times [place] 00 daily as Medical needed. Branch Diclofenac Yes [id number] Apply 2 to [facility] Sodium 1 % 9-16 4 grams ity of gel 00:00: 3-4 times [place] 00 daily as Medical needed. Branch Diclofenac Yes [id number] Apply 2 to [facility] Sodium 1 % 9-16 4 grams ity of gel 00:00: 3-4 times [place] 00 daily as Medical needed. Branch Diclofenac Yes [id number] Apply 2 to [facility] Sodium 1 % 9-16 4 grams ity of gel 00:00: 3-4 times [place] 00 daily as Medical needed. Branch Diclofenac Yes [id number] Apply 2 to [facility] Sodium 1 % 9-16 4 grams ity of gel 00:00: 3-4 times [place] 00 daily as Medical needed. Branch Diclofenac Yes [id number] Apply 2 to [facility] Sodium 1 % 9-16 4 grams ity of gel 00:00: 3-4 times [place] 00 daily as Medical needed. Branch Diclofenac Yes [id number] Apply 2 to [facility] Sodium 1 % 9-16 4 grams ity of gel 00:00: 3-4 times [place] 00 daily as Medical needed. Branch Diclofenac Yes [id number] Apply 2 to [facility] Sodium 1 % 9-16 4 grams ity of gel 00:00: 3-4 times [place] 00 daily as Medical needed. Branch Diclofenac Yes [id number] Apply 2 to [facility] Sodium 1 % 9-16 4 grams ity of gel 00:00: 3-4 times [place] 00 daily as Medical needed. Branch Diclofenac Yes [id number] Apply 2 to [facility] Sodium 1 % 9-16 4 grams ity of gel 00:00: 3-4 times [place] 00 daily as Medical needed. Branch Diclofenac Yes [id number] Apply 2 to [facility] Sodium 1 % 9-16 4 grams ity of gel 00:00: 3-4 times [place] 00 daily as Medical needed. Branch Diclofenac Yes [id number] Apply 2 to [facility] Sodium 1 % 9-16 4 grams ity of gel 00:00: 3-4 times [place] 00 daily as Medical needed. Branch Diclofenac Yes [id number] Apply 2 to [facility] Sodium 1 % 9-16 4 grams ity of gel 00:00: 3-4 times [place] 00 daily as Medical needed. Branch Diclofenac Yes [id number] Apply 2 to [facility] Sodium 1 % 9-16 4 grams ity of gel 00:00: 3-4 times [place] 00 daily as Medical needed. Branch Diclofenac Yes [id number] Apply 2 to [facility] Sodium 1 % 9-16 4 grams ity of gel 00:00: 3-4 times [place] 00 daily as Medical needed. Branch Diclofenac Yes [id number] Apply 2 to [facility] Sodium 1 % 9-16 4 grams ity of gel 00:00: 3-4 times [place] 00 daily as Medical needed. Branch Diclofenac Yes [id number] Apply 2 to [facility] Sodium 1 % 9-16 4 grams ity of gel 00:00: 3-4 times [place] 00 daily as Medical needed. Branch Diclofenac Yes [id number] Apply 2 to [facility] Sodium 1 % 9-16 4 grams ity of gel 00:00: 3-4 times [place] 00 daily as Medical needed. Branch Diclofenac Yes [id number] Apply 2 to [facility] Sodium 1 % 9-16 4 grams ity of gel 00:00: 3-4 times [place] 00 daily as Medical needed. Branch Diclofenac Yes [id number] Apply 2 to [facility] Sodium 1 % 9-16 4 grams it[facility] of gel 00:00: 3-4 times [place] 00 daily as Medical needed. Branch Diclofenac Yes [id number] Apply 2 to [facility] Sodium 1 % 9-16 4 grams it[facility] of gel 00:00: 3-4 times [place] 00 daily as Medical needed. Branch Diclofenac Yes [id number] Apply 2 to [facility] Sodium 1 % 9-16 4 grams ity of gel 00:00: 3-4 times [place] 00 daily as Medical needed. Branch Diclofenac Yes [id number] Apply 2 to [facility] Sodium 1 % 9-16 4 grams it[facility] of gel 00:00: 3-4 times [place] 00 daily as Medical needed. Branch Diclofenac 2018-0 Yes [id number] Apply 2 to [facility] Sodium 1 % 9-16 4 grams [facility] of gel 00:00: 3-4 times [place] 00 daily as Medical needed. Branch Diclofenac 2018-0 Yes [id number] Apply 2 to [facility] Sodium 1 % 9-16 4 grams ity of gel 00:00: 3-4 times [place] 00 daily as Medical needed. Branch Diclofenac 2018-0 Yes [id number] Apply 2 to [facility] Sodium 1 % 9-16 4 grams it[facility] of gel 00:00: 3-4 times [place] 00 daily as Medical needed. Branch TIZANIDINE 0 Yes [id number] 2mg TAKE 1-2 [facility] 2 mg tablet 7-24 TABLETS BY it y of 00:00: MOUTH [place] 00 EVERY 8 Medical (EIGHT) Branch HOURS NEEDED (MUSCLE PAIN OR SPASM). TIZANIDINE Yes [id number] 2mg TAKE 1-2 [facility] 2 mg tablet 7-24 TABLETS BY it y of 00:00: MOUTH [place] 00 EVERY 8 Medical (EIGHT) Branch HOURS NEEDED (MUSCLE PAIN OR SPASM). TIZANIDINE Yes [id number] 2mg TAKE 1-2 [facility] 2 mg tablet 7-24 TABLETS BY it y of 00:00: MOUTH [place] 00 EVERY 8 Medical (EIGHT) Branch HOURS NEEDED (MUSCLE PAIN OR SPASM). TIZANIDINE Yes [id number] 2mg TAKE 1-2 [facility] 2 mg tablet 7-24 TABLETS BY it y of 00:00: MOUTH [place] 00 EVERY 8 Medical (EIGHT) Branch HOURS NEEDED (MUSCLE PAIN OR SPASM). TIZANIDINE Yes [id number] 2mg TAKE 1-2 [facility] 2 mg tablet 7-24 TABLETS BY it y of 00:00: MOUTH [place] 00 EVERY 8 Medical (EIGHT) Branch HOURS NEEDED (MUSCLE PAIN OR SPASM). TIZANIDINE 2018-0 Yes [id number] 2mg TAKE 1-2 [facility] 2 mg tablet 7-24 TABLETS BY it y of 00:00: MOUTH [place] 00 EVERY 8 Medical (EIGHT) Branch HOURS NEEDED (MUSCLE PAIN OR SPASM). TIZANIDINE 2018-0 Yes [id number] 2mg TAKE 1-2 [facility] 2 mg tablet 7-24 TABLETS BY it y of 00:00: MOUTH [place] 00 EVERY 8 Medical (EIGHT) Branch HOURS NEEDED (MUSCLE PAIN OR SPASM). TIZANIDINE 2019-0 Yes [id number] 2mg TAKE 1-2 [facility] 2 mg tablet 7-24 TABLETS BY it y of 00:00: MOUTH [place] 00 EVERY 8 Medical (EIGHT) Branch HOURS NEEDED (MUSCLE PAIN OR SPASM). TIZANIDINE 2019-0 Yes [id number] 2mg TAKE 1-2 [facility] 2 mg tablet 7-24 TABLETS BY it y of 00:00: MOUTH [place] 00 EVERY 8 Medical (EIGHT) Branch HOURS NEEDED (MUSCLE PAIN OR SPASM). TIZANIDINE 2019-0 Yes [id number] 2mg TAKE 1-2 [facility] 2 mg tablet 7-24 TABLETS BY it y of 00:00: MOUTH [place] 00 EVERY 8 Medical (EIGHT) Branch HOURS NEEDED (MUSCLE PAIN OR SPASM). TIZANIDINE 2019-0 Yes [id number] 2mg TAKE 1-2 [facility] 2 mg tablet 7-24 TABLETS BY it y of 00:00: MOUTH [place] 00 EVERY 8 Medical (EIGHT) Branch HOURS NEEDED (MUSCLE PAIN OR SPASM). TIZANIDINE 2019-0 Yes [id number] 2mg TAKE 1-2 [facility] 2 mg tablet 7-24 TABLETS BY it y of 00:00: MOUTH [place] 00 EVERY 8 Medical (EIGHT) Branch HOURS NEEDED (MUSCLE PAIN OR SPASM). TIZANIDINE 2019-0 Yes [id number] 2mg TAKE 1-2 [facility] 2 mg tablet 7-24 TABLETS BY it y of 00:00: MOUTH [place] 00 EVERY 8 Medical (EIGHT) Branch HOURS NEEDED (MUSCLE PAIN OR SPASM). ibandronate 2019-0 Yes [id number] 150mg Take 1 [facility] 150 mg 7-23 tablet by ity of tablet 00:00: mouth once [place] 00 every Medical month. Branch ibandronate 2019-0 Yes [id number] 150mg Take 1 [facility] 150 mg 7-23 tablet by ity of tablet 00:00: mouth once [place] 00 every Medical month. Branch ibandronate 2019-0 Yes [id number] 150mg Take 1 [facility] 150 mg 7-23 tablet by ity of tablet 00:00: mouth once [place] 00 every Medical month. Branch ibandronate 2019-0 Yes [id number] 150mg Take 1 [facility] 150 mg 7-23 tablet by ity of tablet 00:00: mouth once [place] 00 every Medical month. Branch ibandronate 2019-0 Yes [id number] 150mg Take 1 [facility] 150 mg 7-23 tablet by ity of tablet 00:00: mouth once [place] 00 every Medical month. Branch ibandronate 2019-0 Yes [id number] 150mg Take 1 [facility] 150 mg 7-23 tablet by ity of tablet 00:00: mouth once [place] 00 every Medical month. Branch ibandronate 2019-0 Yes [id number] 150mg Take 1 [facility] 150 mg 7-23 tablet by [facility]y of tablet 00:00: mouth once [place] 00 every Medical month. Branch ibandronate 2019-0 Yes [id number] 150mg Take 1 [facility] 150 mg 7-23 tablet by [facility] of tablet 00:00: mouth once [place] 00 every Medical month. Branch ibandronate 2019-0 Yes [id number] 150mg Take 1 [facility] 150 mg 7-23 tablet by ity of tablet 00:00: mouth once [place] 00 every Medical month. Branch ibandronate 2019-0 Yes [id number] 150mg Take 1 [facility] 150 mg 7-23 tablet by ity of tablet 00:00: mouth once [place] 00 every Medical month. Branch ibandronate 2019-0 Yes [id number] 150mg Take 1 [facility] 150 mg 7-23 tablet by ity of tablet 00:00: mouth once [place] 00 every Medical month. Branch ibandronate 2019-0 Yes [id number] 150mg Take 1 [facility] 150 mg 7-23 tablet by ity of tablet 00:00: mouth once [place] 00 every Medical month. Branch ibandronate 2019-0 Yes [id number] 150mg Take 1 [facility] 150 mg 7-23 tablet by ity of tablet 00:00: mouth once [place] 00 every Medical month. Branch ibandronate 2019-0 Yes [id number] 150mg Take 1 [facility] 150 mg 7-23 tablet by ity of tablet 00:00: mouth once [place] 00 every Medical month. Branch ibandronate 2019-0 Yes [id number] 150mg Take 1 [facility] 150 mg 7-23 tablet by ity of tablet 00:00: mouth once [place] 00 every Medical month. Branch ibandronate 2019-0 Yes [id number] 150mg Take 1 [facility] 150 mg 7-23 tablet by [facility]y of tablet 00:00: mouth once [place] 00 every Medical month. Branch ibandronate 2019-0 Yes [id number] 150mg Take 1 [facility] 150 mg 7-23 tablet by ity of tablet 00:00: mouth once [place] 00 every Medical month. Branch ibandronate 2019-0 Yes [id number] 150mg Take 1 [facility] 150 mg 7-23 tablet by [facility] of tablet 00:00: mouth once [place] 00 every Medical month. Branch ibandronate 2019-0 Yes [id number] 150mg Take 1 [facility] 150 mg 7-23 tablet by [facility]y of tablet 00:00: mouth once [place] 00 every Medical month. Branch ibandronate 2019-0 Yes [id number] 150mg Take 1 [facility] 150 mg 7-23 tablet by [facility]y of tablet 00:00: mouth once [place] 00 every Medical month. Branch ibandronate 2019-0 Yes [id number] 150mg Take 1 [facility] 150 mg 7-23 tablet by [facility]y of tablet 00:00: mouth once [place] 00 every Medical month. Branch ibandronate 2019-0 Yes [id number] 150mg Take 1 [facility] 150 mg 7-23 tablet by ity of tablet 00:00: mouth once [place] 00 every Medical month. Branch ibandronate 2019-0 Yes [id number] 150mg Take 1 [facility] 150 mg 7-23 tablet by ity of tablet 00:00: mouth once [place] 00 every Medical month. Branch ibandronate 2019-0 Yes [id number] 150mg Take 1 [facility] 150 mg 7-23 tablet by ity of tablet 00:00: mouth once [place] 00 every Medical month. Branch ibandronate 2019-0 Yes [id number] 150mg Take 1 [facility] 150 mg 7-23 tablet by ity of tablet 00:00: mouth once [place] 00 every Medical month. Branch ibandronate 2019-0 Yes [id number] 150mg Take 1 [facility] 150 mg 7-23 tablet by [facility]y of tablet 00:00: mouth once [place] 00 every Medical month. Branch ibandronate 2019-0 Yes [id number] 150mg Take 1 [facility] 150 mg 7-23 tablet by ity of tablet 00:00: mouth once [place] 00 every Medical month. Branch ibandronate 2019-0 Yes [id number] 150mg Take 1 [facility] 150 mg 7-23 tablet by ity of tablet 00:00: mouth once [place] 00 every Medical month. Branch ibandronate 2019-0 Yes [id number] 150mg Take 1 [facility] 150 mg 7-23 tablet by ity of tablet 00:00: mouth once [place] 00 every Medical month. Branch ibandronate 2019-0 Yes [id number] 150mg Take 1 [facility] 150 mg 7-23 tablet by ity of tablet 00:00: mouth once [place] 00 every Medical month. Branch ibandronate 2019-0 Yes [id number] 150mg Take 1 [facility] 150 mg 7-23 tablet by ity of tablet 00:00: mouth once [place] 00 every Medical month. Branch ibandronate 2019-0 Yes [id number] 150mg Take 1 [facility] 150 mg 7-23 tablet by ity of tablet 00:00: mouth once [place] 00 every Medical month. Branch ibandronate 2019-0 Yes [id number] 150mg Take 1 [facility] 150 mg 7-23 tablet by ity of tablet 00:00: mouth once [place] 00 every Medical month. Branch ibandronate 2019-0 Yes [id number] 150mg Take 1 [facility] 150 mg 7-23 tablet by ity of tablet 00:00: mouth once [place] 00 every Medical month. Branch ibandronate 2019-0 Yes [id number] 150mg Take 1 [facility] 150 mg 7-23 tablet by ity of tablet 00:00: mouth once [place] 00 every Medical month. Branch ibandronate 2019-0 Yes [id number] 150mg Take 1 [facility] 150 mg 7-23 tablet by ity of tablet 00:00: mouth once [place] 00 every Medical month. Branch ibandronate 2019-0 Yes [id number] 150mg Take 1 [facility] 150 mg 7-23 tablet by ity of tablet 00:00: mouth once [place] 00 every Medical month. Branch ibandronate 2019-0 Yes [id number] 150mg Take 1 [facility] 150 mg 7-23 tablet by ity of tablet 00:00: mouth once [place] 00 every Medical month. Branch ibandronate 2019-0 Yes [id number] 150mg Take 1 [facility] 150 mg 7-23 tablet by ity of tablet 00:00: mouth once [place] 00 every Medical month. Branch ibandronate 2019-0 Yes [id number] 150mg Take 1 [facility] 150 mg 7-23 tablet by ity of tablet 00:00: mouth once [place] 00 every Medical month. Branch ibandronate 2019-0 Yes [id number] 150mg Take 1 [facility] 150 mg 7-23 tablet by ity of tablet 00:00: mouth once [place] 00 every Medical month. Branch ibandronate 2019-0 Yes [id number] 150mg Take 1 [facility] 150 mg 7-23 tablet by ity of tablet 00:00: mouth once [place] 00 every Medical month. Branch ibandronate 2019-0 Yes [id number] 150mg Take 1 [facility] 150 mg 7-23 tablet by ity of tablet 00:00: mouth once [place] 00 every Medical month. Branch ibandronate 2019-0 Yes [id number] 150mg Take 1 [facility] 150 mg 7-23 tablet by ity of tablet 00:00: mouth once [place] 00 every Medical month. Branch ibandronate 2019-0 Yes [id number] 150mg Take 1 [facility] 150 mg 7-23 tablet by ity of tablet 00:00: mouth once [place] 00 every Medical month. Branch ibandronate 2019-0 Yes [id number] 150mg Take 1 [facility] 150 mg 7-23 tablet by ity of tablet 00:00: mouth once [place] 00 every Medical month. Branch ibandronate 2019-0 Yes [id number] 150mg Take 1 [facility] 150 mg 7-23 tablet by ity of tablet 00:00: mouth once [place] 00 every Medical month. Branch ibandronate 2019-0 Yes [id number] 150mg Take 1 [facility] 150 mg 7-23 tablet by ity of tablet 00:00: mouth once [place] [id number] every Medical month. Branch ibandronate 2018-0 2020- No [id number] 150mg Take 1 [facility] 150 mg 7-23 07- tablet by ity of tablet 00:00: 00:00 [facility]. Branch amLODIPine 2018-0 Yes [id number] 5mg Take 1 [facility] n[facility] 5 mg tablet 7- tablet by ity of 00:00: mouth at [place] 00 bedtime. Medical Branch amLODIPine 2018-0 2019- No [id number] 5mg Take 1 [facility] 5 mg tablet -10 25- tablet by it y of 00:00: 00:00 mouth at [place] 00 :00 bedtime. Medical Branch amLODIPine 2018-0 2019- No [id number] 5mg Take 1 [facility] 5 mg tablet 7-10 25- tablet by it y of 00:00: 00:00 mouth at [place] 00 :00 bedtime. Medical Branch NEXIUM 40 2019-0 Yes [id number] 40mg TAKE 1 U nivers mg capsule 6-25 CAPSULE BY ity of 00:00: MOUTH [place] 00 DAILY WITH Medical BREAKFAST. Branch BRAND MEDICALLY NECESSARY. NEXIUM 40 2019-0 Yes [id number] 40mg TAKE 1 U nivers mg capsule 6-25 CAPSULE BY ity of 00:00: MOUTH [place] 00 DAILY WITH Medical BREAKFAST. Branch BRAND MEDICALLY NECESSARY. NEXIUM 40 2019-0 Yes [id number] 40mg TAKE 1 U nivers mg capsule 6-25 CAPSULE BY ity of 00:00: MOUTH [place] 00 DAILY WITH Medical BREAKFAST. Branch BRAND MEDICALLY NECESSARY. NEXIUM 40 2019-0 Yes [id number] 40mg TAKE 1 U nivers mg capsule 6-25 CAPSULE BY ity of 00:00: MOUTH [place] 00 DAILY WITH Medical BREAKFAST. Branch BRAND MEDICALLY NECESSARY. NEXIUM 40 2018-0 Yes [id number] 40mg TAKE 1 U nivers mg capsule 6-25 CAPSULE BY ity of 00:00: MOUTH [place] 00 DAILY WITH Medical BREAKFAST. Branch BRAND MEDICALLY NECESSARY. NEXIUM 40 2018-0 Yes [id number] 40mg TAKE 1 U nivers mg capsule 6-25 CAPSULE BY ity of 00:00: MOUTH [place] 00 DAILY WITH Medical BREAKFAST. Branch BRAND MEDICALLY NECESSARY. NEXIUM 40 2018-0 Yes [id number] 40mg TAKE 1 U nivers mg capsule 6-25 CAPSULE BY ity of 00:00: MOUTH [place] 00 DAILY WITH Medical BREAKFAST. Branch BRAND MEDICALLY NECESSARY. NEXIUM 40 2018-0 Yes [id number] 40mg TAKE 1 U nivers mg capsule 6-25 CAPSULE BY ity of 00:00: MOUTH [place] 00 DAILY WITH Medical BREAKFAST. Branch BRAND MEDICALLY NECESSARY. NEXIUM 40 2018-0 Yes [id number] 40mg TAKE 1 U nivers mg capsule 6-25 CAPSULE BY ity of 00:00: MOUTH [place] 00 DAILY WITH Medical BREAKFAST. Branch BRAND MEDICALLY NECESSARY. NEXIUM 40 2018-0 Yes [id number] 40mg TAKE 1 U nivers mg capsule 6-25 CAPSULE BY ity of 00:00: MOUTH [place] 00 DAILY WITH Medical BREAKFAST. Branch BRAND MEDICALLY NECESSARY. NEXIUM 40 2019-0 Yes [id number] 40mg TAKE 1 U nivers mg capsule 6-25 CAPSULE BY ity of 00:00: MOUTH [place] 00 DAILY WITH Medical BREAKFAST. Branch BRAND MEDICALLY NECESSARY. NEXIUM 40 2019-0 Yes [id number] 40mg TAKE 1 U nivers mg capsule 6-25 CAPSULE BY ity of 00:00: MOUTH [place] 00 DAILY WITH Medical BREAKFAST. Branch BRAND MEDICALLY NECESSARY. NEXIUM 40 2018-0 Yes [id number] 40mg TAKE 1 U nivers mg capsule 6-25 CAPSULE BY ity of 00:00: MOUTH [place] 00 DAILY WITH Medical BREAKFAST. Branch BRAND MEDICALLY NECESSARY. NEXIUM 40 2019-0 Yes [id number] 40mg TAKE 1 U nivers mg capsule 6-25 CAPSULE BY ity of 00:00: MOUTH [place] 00 DAILY WITH Medical BREAKFAST. Branch BRAND MEDICALLY NECESSARY. NEXIUM 40 2019-0 Yes [id number] 40mg TAKE 1 U nivers mg capsule 6-25 CAPSULE BY ity of 00:00: MOUTH [place] 00 DAILY WITH Medical BREAKFAST. Branch BRAND MEDICALLY NECESSARY. NEXIUM 40 2018-0 Yes [id number] 40mg TAKE 1 U nivers mg capsule 6-25 CAPSULE BY ity of 00:00: MOUTH [place] 00 DAILY WITH Medical BREAKFAST. Branch BRAND MEDICALLY NECESSARY. NEXIUM 40 2018-0 Yes [id number] 40mg TAKE 1 U nivers mg capsule 6-25 CAPSULE BY ity of 00:00: MOUTH [place] 00 DAILY WITH Medical BREAKFAST. Branch BRAND MEDICALLY NECESSARY. NEXIUM 40 2018-0 Yes [id number] 40mg TAKE 1 U nivers mg capsule 6-25 CAPSULE BY ity of 00:00: MOUTH [place] 00 DAILY WITH Medical BREAKFAST. Branch BRAND MEDICALLY NECESSARY. NEXIUM 40 2018-0 Yes [id number] 40mg TAKE 1 U nivers mg capsule 6-25 CAPSULE BY ity of 00:00: MOUTH [place] 00 DAILY WITH Medical BREAKFAST. Branch BRAND MEDICALLY NECESSARY. NEXIUM 40 2018-0 Yes [id number] 40mg TAKE 1 U nivers mg capsule 6-25 CAPSULE BY ity of 00:00: MOUTH [place] 00 DAILY WITH Medical BREAKFAST. Branch BRAND MEDICALLY NECESSARY. NEXIUM 40 2018-0 Yes [id number] 40mg TAKE 1 U nivers mg capsule 6-25 CAPSULE BY ity of 00:00: MOUTH [place] 00 DAILY WITH Medical BREAKFAST. Branch BRAND MEDICALLY NECESSARY. NEXIUM 40 2018-0 Yes [id number] 40mg TAKE 1 U nivers mg capsule 6-25 CAPSULE BY ity of 00:00: MOUTH [place] 00 DAILY WITH Medical BREAKFAST. Branch BRAND MEDICALLY NECESSARY. NEXIUM 40 2018-0 Yes [id number] 40mg TAKE 1 U nivers mg capsule 6-25 CAPSULE BY ity of 00:00: MOUTH [place] 00 DAILY WITH Medical BREAKFAST. Branch BRAND MEDICALLY NECESSARY. NEXIUM 40 2018-0 Yes [id number] 40mg TAKE 1 U nivers mg capsule 6-25 CAPSULE BY ity of 00:00: MOUTH [place] 00 DAILY WITH Medical BREAKFAST. Branch BRAND MEDICALLY NECESSARY. NEXIUM 40 2019-0 Yes [id number] 40mg TAKE 1 U nivers mg capsule 6-25 CAPSULE BY ity of 00:00: MOUTH [place] 00 DAILY WITH Medical BREAKFAST. Branch BRAND MEDICALLY NECESSARY. NEXIUM 40 2019-0 Yes [id number] 40mg TAKE 1 U nivers mg capsule 6-25 CAPSULE BY ity of 00:00: MOUTH [place] 00 DAILY WITH Medical BREAKFAST. Branch BRAND MEDICALLY NECESSARY. NEXIUM 40 2018-0 Yes [id number] 40mg TAKE 1 U nivers mg capsule 6-25 CAPSULE BY ity of 00:00: MOUTH [place] 00 DAILY WITH Medical BREAKFAST. Branch BRAND MEDICALLY NECESSARY. NEXIUM 40 2018-0 Yes [id number] 40mg TAKE 1 U nivers mg capsule 6-25 CAPSULE BY ity of 00:00: MOUTH [place] 00 DAILY WITH Medical BREAKFAST. Branch BRAND MEDICALLY NECESSARY. NEXIUM 40 2018- Yes [id number] 40mg TAKE 1 U nivers mg capsule 6-25 CAPSULE BY ity of 00:00: MOUTH [place] 00 DAILY WITH Medical BREAKFAST. Branch BRAND MEDICALLY NECESSARY. NEXIUM 40 2018-0 Yes [id number] 40mg TAKE 1 U nivers mg capsule 6-25 CAPSULE BY ity of 00:00: MOUTH [place] 00 DAILY WITH Medical BREAKFAST. Branch BRAND MEDICALLY NECESSARY. NEXIUM 40 2018-0 Yes [id number] 40mg TAKE 1 U nivers mg capsule 6-25 CAPSULE BY ity of 00:00: MOUTH [place] 00 DAILY WITH Medical BREAKFAST. Branch BRAND MEDICALLY NECESSARY. NEXIUM 40 2018-0 Yes [id number] 40mg TAKE 1 U nivers mg capsule 6-25 CAPSULE BY ity of 00:00: MOUTH [place] 00 DAILY WITH Medical BREAKFAST. Branch BRAND MEDICALLY NECESSARY. NEXIUM 40 2018-0 Yes [id number] 40mg TAKE 1 U nivers mg capsule 6-25 CAPSULE BY ity of 00:00: MOUTH [place] 00 DAILY WITH Medical BREAKFAST. Branch BRAND MEDICALLY NECESSARY. NEXIUM 40 2018-0 Yes [id number] 40mg TAKE 1 U nivers mg capsule 6-25 CAPSULE BY ity of 00:00: MOUTH [place] 00 DAILY WITH Medical BREAKFAST. Branch BRAND MEDICALLY NECESSARY. NEXIUM 40 2019-0 Yes [id number] 40mg TAKE 1 U nivers mg capsule 6-25 CAPSULE BY ity of 00:00: MOUTH [place] 00 DAILY WITH Medical BREAKFAST. Branch BRAND MEDICALLY NECESSARY. NEXIUM 40 2019-0 Yes [id number] 40mg TAKE 1 U nivers mg capsule 6-25 CAPSULE BY ity of 00:00: MOUTH [place] 00 DAILY WITH Medical BREAKFAST. Branch BRAND MEDICALLY NECESSARY. NEXIUM 40 2019-0 Yes [id number] 40mg TAKE 1 U nivers mg capsule 6-25 CAPSULE BY ity of 00:00: MOUTH [place] 00 DAILY WITH Medical BREAKFAST. Branch BRAND MEDICALLY NECESSARY. NEXIUM 40 2018- Yes [id number] 40mg TAKE 1 U [facility] mg capsule 6-25 CAPSULE BY [facility] of 00:00: MOUTH [place] 00 DAILY WITH Medical BREAKFAST. Branch BRAND MEDICALLY NECESSARY. NEXIUM 40 Yes [id number] 40mg TAKE 1 U nivers mg capsule 6-25 CAPSULE BY [facility] of 00:00: MOUTH [place] 00 DAILY WITH Medical BREAKFAST. Branch BRAND MEDICALLY NECESSARY. NEXIUM 40 Yes [id number] 40mg TAKE 1 U nivers mg capsule 6-25 CAPSULE BY ity of 00:00: MOUTH [place] 00 DAILY WITH Medical BREAKFAST. Branch BRAND MEDICALLY NECESSARY. NEXIUM 40 Yes [id number] 40mg TAKE 1 U nivers mg capsule 6-25 CAPSULE BY [facility] of 00:00: MOUTH [place] 00 DAILY WITH Medical BREAKFAST. Branch BRAND MEDICALLY NECESSARY. NEXIUM 40 0 Yes [id number] 40mg TAKE 1 U [facility]ivers mg capsule 6-25 CAPSULE BY [facility] of 00:00: MOUTH [place] 00 DAILY WITH Medical BREAKFAST. Branch BRAND MEDICALLY NECESSARY. NEXIUM 40 Yes [id number] 40mg TAKE 1 U nivers mg capsule 6-25 CAPSULE BY [facility] of 00:00: MOUTH [place] 00 DAILY WITH Medical BREAKFAST. Branch BRAND MEDICALLY NECESSARY. NEXIUM 40 0 Yes [id number] 40mg TAKE 1 U [facility]ivers mg capsule 6-25 CAPSULE BY [facility] of 00:00: MOUTH [place] 00 DAILY WITH Medical BREAKFAST. Branch BRAND MEDICALLY NECESSARY. NEXIUM 40 2018-0 Yes [id number] 40mg TAKE 1 U [facility]ivers mg capsule 6-25 CAPSULE BY [facility] of 00:00: MOUTH [place] 00 DAILY WITH Medical BREAKFAST. Branch BRAND MEDICALLY NECESSARY. NEXIUM 40 2018-0 Yes [id number] 40mg TAKE 1 U [facility]ivers mg capsule 6-25 CAPSULE BY [facility] of 00:00: MOUTH [place] 00 DAILY WITH Medical BREAKFAST. Branch BRAND MEDICALLY NECESSARY. NEXIUM 40 0 Yes [id number] 40mg TAKE 1 U [facility]ivers mg capsule 6-25 CAPSULE BY [facility] of 00:00: MOUTH [place] 00 DAILY WITH Medical BREAKFAST. Branch BRAND MEDICALLY NECESSARY. NEXIUM 40 2018-0 2020- No [id number] 40mg TAKE 1 [facility] mg capsule 6-25 07-28 CAPSULE BY it y of 00:00: 00:00 MOUTH [place] 00 :00 DAILY WITH Medical BREAKFAST. Branch BRAND MEDICALLY NECESSARY. TRIAMTERENE 2018- Yes [id number] TAKE 2 [facility] -HYDROCHLOR 5-30 TABLETS BY it y of OTHIAZID 00:00: MOUTH [place] 37.5-25 mg 00 DAILY. Medical tablet Branch TRIAMTERENE Yes [id number] TAKE 2 [facility] -HYDROCHLOR 5-30 TABLETS BY it y of OTHIAZID 00:00: MOUTH [place] 37.5-25 mg 00 DAILY. Medical tablet Branch TRIAMTERENE Yes [id number] TAKE 2 [facility] -HYDROCHLOR 5-30 TABLETS BY it y of OTHIAZID 00:00: MOUTH [place] 37.5-25 mg 00 DAILY. Medical tablet Branch TRIAMTERENE Yes [id number] TAKE 2 [facility] -HYDROCHLOR 5-30 TABLETS BY it y of OTHIAZID 00:00: MOUTH [place] 37.5-25 mg 00 DAILY. Medical tablet Branch TRIAMTERENE Yes [id number] TAKE 2 [facility] -HYDROCHLOR 5-30 TABLETS BY it y of OTHIAZID 00:00: MOUTH [place] 37.5-25 mg 00 DAILY. Medical tablet Branch TRIAMTERENE Yes [id number] TAKE 2 [facility] -HYDROCHLOR 5-30 TABLETS BY it y of OTHIAZID 00:00: MOUTH [place] 37.5-25 mg 00 DAILY. Medical tablet Branch TRIAMTERENE Yes [id number] TAKE 2 [facility] -HYDROCHLOR 5-30 TABLETS BY it y of OTHIAZID 00:00: MOUTH [place] 37.5-25 mg 00 DAILY. Medical tablet Branch TRIAMTERENE Yes [id number] TAKE 2 [facility] -HYDROCHLOR 5-30 TABLETS BY it y of OTHIAZID 00:00: MOUTH [place] 37.5-25 mg 00 DAILY. Medical tablet Branch TRIAMTERENE Yes [id number] TAKE 2 [facility] -HYDROCHLOR 5-30 TABLETS BY it y of OTHIAZID 00:00: MOUTH [place] 37.5-25 mg 00 DAILY. Medical tablet Branch TRIAMTERENE 2019-0 Yes [id number] TAKE 2 [facility] -HYDROCHLOR 5-30 TABLETS BY it y of OTHIAZID 00:00: MOUTH [place] 37.5-25 mg 00 DAILY. Medical tablet Branch TRIAMTERENE 2018-0 Yes [id number] TAKE 2 [facility] -HYDROCHLOR 5-30 TABLETS BY it y of OTHIAZID 00:00: MOUTH [place] 37.5-25 mg 00 DAILY. Medical tablet Branch TRIAMTERENE 2018-0 Yes [id number] TAKE 2 [facility] -HYDROCHLOR 5-30 TABLETS BY it y of OTHIAZID 00:00: MOUTH [place] 37.5-25 mg 00 DAILY. Medical tablet Branch TRIAMTERENE 2018-0 Yes [id number] TAKE 2 [facility] -HYDROCHLOR 5-30 TABLETS BY it y of OTHIAZID 00:00: MOUTH [place] 37.5-25 mg 00 DAILY. Medical tablet Branch LEVOTHYROXI 2019-0 Yes [id number] TAKE 1 [facility] [place] 25 mcg 5-13 TABLET BY it[facility] o f tablet 00:00: MOUTH [place] 00 EVERY Medical MORNING. Branch LEVOTHYROXI 2019-0 Yes [id number] TAKE 1 [facility] [place] 25 mcg 5-13 TABLET BY it[facility] o f tablet 00:00: MOUTH [place] 00 EVERY Medical MORNING. Branch LEVOTHYROXI 2019-0 Yes [id number] TAKE 1 [facility] NE 25 mcg 5-13 TABLET BY it[facility] o f tablet 00:00: MOUTH [place] 00 EVERY Medical MORNING. Branch LEVOTHYROXI 2019-0 Yes [id number] TAKE 1 [facility] [place] 25 mcg 5-13 TABLET BY it[facility] o f tablet 00:00: MOUTH [place] 00 EVERY Medical MORNING. Branch LEVOTHYROXI 2019-0 Yes [id number] TAKE 1 [facility] [place] 25 mcg 5-13 TABLET BY it[facility] o f tablet 00:00: MOUTH [place] 00 EVERY Medical MORNING. Branch LEVOTHYROXI 2019-0 Yes [id number] TAKE 1 [facility] [place] 25 mcg 5-13 TABLET BY [facility] o f tablet 00:00: MOUTH [place] 00 EVERY Medical MORNING. Branch LEVOTHYROXI 2019-0 Yes [id number] TAKE 1 [facility] [place] 25 mcg 5-13 TABLET BY [facility] o f tablet 00:00: MOUTH [place] 00 EVERY Medical MORNING. Branch LEVOTHYROXI 2019-0 Yes [id number] TAKE 1 [facility] 25 mcg 5-13 TABLET BY it[facility] o f tablet 00:00: MOUTH [place] 00 EVERY Medical MORNING. Branch LEVOTHYROXI 2019-0 Yes [id number] TAKE 1 [facility] 25 mcg 5-13 TABLET BY it[facility] o f tablet 00:00: MOUTH [place] 00 EVERY Medical MORNING. Branch LEVOTHYROXI 2019-0 Yes [id number] TAKE 1 [facility] 25 mcg 5-13 TABLET BY [facility] o f tablet 00:00: MOUTH [place] 00 EVERY Medical MORNING. Branch LEVOTHYROXI 2019-0 Yes [id number] TAKE 1 [facility] 25 mcg 5-13 TABLET BY it[facility] o f tablet 00:00: MOUTH [place] 00 EVERY Medical MORNING. Branch LEVOTHYROXI 2019-0 Yes [id number] TAKE 1 [facility] 25 mcg 5-13 TABLET BY it[facility] o f tablet 00:00: MOUTH [place] 00 EVERY Medical MORNING. Branch LEVOTHYROXI 2019-0 Yes [id number] TAKE 1 [facility] 25 mcg 5-13 TABLET BY it[facility] o f tablet 00:00: MOUTH [place] 00 EVERY Medical MORNING. Branch LEVOTHYROXI 2019-0 Yes [id number] TAKE 1 [facility] 25 mcg 5-13 TABLET BY [facility] o f tablet 00:00: MOUTH [place] 00 EVERY Medical MORNING. Branch LEVOTHYROXI 2019-0 Yes [id number] TAKE 1 [facility] 25 mcg 5-13 TABLET BY [facility] o f tablet 00:00: MOUTH [place] 00 EVERY Medical MORNING. Branch LEVOTHYROXI 2019-0 Yes [id number] TAKE 1 [facility] 25 mcg 5-13 TABLET BY [facility] o f tablet 00:00: MOUTH [place] 00 EVERY Medical MORNING. Branch LEVOTHYROXI 2019-0 Yes [id number] TAKE 1 [facility] 25 mcg 5-13 TABLET BY [facility] o f tablet 00:00: MOUTH [place] 00 EVERY Medical MORNING. Branch LEVOTHYROXI 2019-0 Yes [id number] TAKE 1 [facility] 25 mcg 5-13 TABLET BY it[facility] o f tablet 00:00: MOUTH [place] 00 EVERY Medical MORNING. Branch LEVOTHYROXI 2019-0 Yes [id number] TAKE 1 [facility] 25 mcg 5-13 TABLET BY [facility] o f tablet 00:00: MOUTH [place] 00 EVERY Medical MORNING. Branch LEVOTHYROXI 2019-0 Yes [id number] TAKE 1 [facility] 25 mcg 5-13 TABLET BY [facility] o f tablet 00:00: MOUTH [place] 00 EVERY Medical MORNING. Branch LEVOTHYROXI 2019-0 Yes [id number] TAKE 1 [facility] 25 mcg 5-13 TABLET BY [facility] o f tablet 00:00: MOUTH [place] 00 EVERY Medical MORNING. Branch LEVOTHYROXI 2019-0 Yes [id number] TAKE 1 [facility] 25 mcg 5-13 TABLET BY [facility] o f tablet 00:00: MOUTH [place] 00 EVERY Medical MORNING. Branch LEVOTHYROXI 2019-0 Yes [id number] TAKE 1 [facility] 25 mcg 5-13 TABLET BY [facility] o f tablet 00:00: MOUTH [place] 00 EVERY Medical MORNING. Branch LEVOTHYROXI 2019-0 Yes [id number] TAKE 1 [facility] 25 mcg 5-13 TABLET BY [facility] o f tablet 00:00: MOUTH [place] 00 EVERY Medical MORNING. Branch LEVOTHYROXI 2019-0 Yes [id number] TAKE 1 [facility] 25 mcg 5-13 TABLET BY [facility] o f tablet 00:00: MOUTH [place] 00 EVERY Medical MORNING. Branch LEVOTHYROXI 2019-0 Yes [id number] TAKE 1 [facility] 25 mcg 5-13 TABLET BY it[facility] o f tablet 00:00: MOUTH [place] 00 EVERY Medical MORNING. Branch LEVOTHYROXI 2019-0 Yes [id number] TAKE 1 [facility] 25 mcg 5-13 TABLET BY [facility] o f tablet 00:00: MOUTH [place] 00 EVERY Medical MORNING. Branch LEVOTHYROXI 2019-0 Yes [id number] TAKE 1 [facility] 25 mcg 5-13 TABLET BY [facility] o f tablet 00:00: MOUTH [place] 00 EVERY Medical MORNING. Branch LEVOTHYROXI 2019-0 2020- No [id number] TAKE 1 [facility] NE 25 mcg 5-13 03-24 TABLET BY [facility] of tablet 00:00: 00:00 MOUTH [place] 00 :00 EVERY Medical MORNING. Branch traZODONE 2019-0 Yes [id number] 100mg Take 1 [facility] 100 mg 4-11 tablet by [facility] of tablet 00:00: mouth at [place] 00 bedtime. Medical For Branch insomnia. traZODONE 2019-0 Yes [id number] 100mg Take 1 [facility] 100 mg 4-11 tablet by [facility] of tablet 00:00: mouth at [place] 00 bedtime. Medical For Branch insomnia. traZODONE 2019-0 Yes [id number] 100mg Take 1 [facility] 100 mg 4-11 tablet by [facility] of tablet 00:00: mouth at [place] 00 bedtime. Medical For Branch insomnia. traZODONE 2019-0 Yes [id number] 100mg Take 1 [facility] 100 mg 4-11 tablet by [facility] of tablet 00:00: mouth at [place] [address] bedtime. Medical For Branch insomnia. traZODONE 2019-0 Yes [id number] 100mg Take 1 [facility] 100 mg 4-11 tablet by [facility] of tablet 00:00: mouth at [place] bedtime. Medical For Branch insomnia. traZODONE 2019-0 Yes [id number] 100mg Take 1 [facility] 100 mg 4-11 tablet by [facility] of tablet 00:00: mouth at [place] bedtime. Medical For Branch insomnia. traZODONE 2019-0 Yes [id number] 100mg Take 1 [facility] 100 mg 4-11 tablet by [facility] of tablet 00:00: mouth at [place] bedtime. Medical For Branch insomnia. traZODONE 2019-0 Yes [id number] 100mg Take 1 [facility] 100 mg 4-11 tablet by [facility] of tablet 00:00: mouth at [place] bedtime. Medical For Branch insomnia. traZODONE 2019-0 Yes [id number] 100mg Take 1 [facility] 100 mg 4-11 tablet by [facility] of tablet 00:00: mouth at [place] [address] bedtime. Medical For Branch insomnia. traZODONE 2019-0 Yes [id number] 100mg Take 1 [facility] 100 mg 4-11 tablet by [facility] of tablet 00:00: mouth at [place] [address] bedtime. Medical For Branch insomnia. traZODONE 2019-0 Yes [id number] 100mg Take 1 [facility] 100 mg 4-11 tablet by [facility] of tablet 00:00: mouth at [place] [address] bedtime. Medical For Branch insomnia. traZODONE 2019-0 Yes [id number] 100mg Take 1 [facility] 100 mg 4-11 tablet by [facility] of tablet 00:00: mouth at [place] bedtime. Medical For Branch insomnia. traZODONE 2019-0 Yes [id number] 100mg Take 1 [facility] 100 mg 4-11 tablet by [facility] of tablet 00:00: mouth at [place] [address] bedtime. Medical For Branch insomnia. metformin 2019-0 Yes [id number] 500mg Take 1 U [facility] ER 500 mg 4-09 tablet by ity o f 24 hr 00:00: mouth [place] tablet 00 daily with Medical breakfast. Branch metformin 2019-0 Yes [id number] 500mg Take 1 [facility] n[facility] ER 500 mg 4-09 tablet by ity o f 24 hr 00:00: mouth [place] tablet 00 daily with Medical breakfast. Branch metformin 2018-0 Yes [id number] 500mg Take 1 [facility] n[facility] ER 500 mg 4-09 tablet by ity o f 24 hr 00:00: mouth [place] tablet 00 daily with Medical breakfast. Branch metformin 2018- Yes [id number] 500mg Take 1 [facility] ER 500 mg 4-09 tablet by ity o f 24 hr 00:00: mouth [place] tablet 00 daily with Medical breakfast. Branch metformin Yes [id number] 500mg Take 1 U n[facility] ER 500 mg 4-09 tablet by ity o f 24 hr 00:00: mouth [place] tablet 00 daily with Medical breakfast. Branch metformin Yes [id number] 500mg Take 1 [facility] ER 500 mg 4-09 tablet by it[facility] o f 24 hr 00:00: mouth [place] tablet 00 daily with Medical breakfast. Branch metformin 2018- Yes [id number] 500mg Take 1 [facility] ER 500 mg 4-09 tablet by [facility] o f 24 hr 00:00: mouth [place] tablet 00 daily with Medical breakfast. Branch metformin Yes [id number] 500mg Take 1 U [facility] ER 500 mg 4-09 tablet by it[facility] o f 24 hr 00:00: mouth [place] tablet 00 daily with Medical breakfast. Branch metformin 2018-0 Yes [id number] 500mg Take 1 U n[facility] ER 500 mg 4-09 tablet by it[facility] o f 24 hr 00:00: mouth [place] tablet 00 daily with Medical breakfast. Branch metformin 2018- Yes [id number] 500mg Take 1 [facility] ER 500 mg 4-09 tablet by [facility] o f 24 hr 00:00: mouth [place] tablet 00 daily with Medical breakfast. Branch metformin 2018- Yes [id number] 500mg Take 1 [facility] ER 500 mg 4-09 tablet by [facility] o f 24 hr 00:00: mouth [place] tablet 00 daily with Medical breakfast. Branch metformin 2018-0 Yes [id number] 500mg Take 1 [facility] ER 500 mg 4-09 tablet by it[facility] o f 24 hr 00:00: mouth [place] tablet 00 daily with Medical breakfast. Branch metformin 2018-0 Yes [id number] 500mg Take 1 [facility] ER 500 mg 4-09 tablet by [facility] o f 24 hr 00:00: mouth [place] tablet 00 daily with Medical breakfast. Branch ciclopirox 2019-0 Yes [id number] Apply to [facility] 8 % 3-28 area(s) at [facility] of solution 00:00: bedtime. [place] 00 Apply to Medical Nails. Branch ciclopirox 2019-0 Yes [id number] Apply to [facility] 8 % 3-28 area(s) at [facility] of solution 00:00: bedtime. [place] 00 Apply to Medical Nails. Branch ciclopirox 2019-0 Yes [id number] Apply to [facility] 8 % 3-28 area(s) at [facility] of solution 00:00: bedtime. [place] 00 Apply to Medical Nails. Branch ciclopirox 2019-0 Yes [id number] Apply to [facility] 8 % 3-28 area(s) at [facility] of solution 00:00: bedtime. [place] 00 Apply to Medical Nails. Branch ciclopirox 2019-0 Yes [id number] Apply to [facility] 8 % 3-28 area(s) at [facility] of solution 00:00: bedtime. [place] 00 Apply to Medical Nails. Branch ciclopirox 2019-0 Yes [id number] Apply to [facility] 8 % 3-28 area(s) at [facility] of solution 00:00: bedtime. [place] 00 Apply to Medical Nails. Branch ciclopirox 2019-0 Yes [id number] Apply to [facility] 8 % 3-28 area(s) at [facility] of solution 00:00: bedtime. [place] 00 Apply to Medical Nails. Branch ciclopirox 2019-0 Yes [id number] Apply to [facility] 8 % 3-28 area(s) at [facility] of solution 00:00: bedtime. [place] 00 Apply to Medical Nails. Branch ciclopirox 2019-0 Yes [id number] Apply to [facility] 8 % 3-28 area(s) at [facility]y of solution 00:00: bedtime. [place] 00 Apply to Medical Nails. Branch ciclopirox 2019-0 Yes [id number] Apply to [facility] 8 % 3-28 area(s) at [facility] of solution 00:00: bedtime. [place] 00 Apply to Medical Nails. Branch ciclopirox 2019-0 Yes [id number] Apply to [facility] 8 % 3-28 area(s) at [facility] of solution 00:00: bedtime. [place] 00 Apply to Medical Nails. Branch ciclopirox 2019-0 Yes [id number] Apply to [facility] 8 % 3-28 area(s) at [facility]y of solution 00:00: bedtime. [place] 00 Apply to Medical Nails. Branch ciclopirox 2019-0 Yes [id number] Apply to [facility] 8 % 3-28 area(s) at [facility] of solution 00:00: bedtime. [place] 00 Apply to Medical Nails. Branch ciclopirox 2019-0 Yes [id number] Apply to [facility] 8 % 3-28 area(s) at [facility]y of solution 00:00: bedtime. [place] 00 Apply to Medical Nails. Branch ciclopirox 2019-0 Yes [id number] Apply to [facility] 8 % 3-28 area(s) at [facility]y of solution 00:00: bedtime. [place] 00 Apply to Medical Nails. Branch ciclopirox 2019-0 Yes [id number] Apply to [facility] 8 % 3-28 area(s) at [facility]y of solution 00:00: bedtime. [place] 00 Apply to Medical Nails. Branch ciclopirox 2019-0 Yes [id number] Apply to [facility] 8 % 3-28 area(s) at [facility]y of solution 00:00: bedtime. [place] 00 Apply to Medical Nails. Branch ciclopirox 2019-0 Yes [id number] Apply to [facility] 8 % 3-28 area(s) at [facility]y of solution 00:00: bedtime. [place] 00 Apply to Medical Nails. Branch ciclopirox 2019-0 Yes [id number] Apply to [facility] 8 % 3-28 area(s) at [facility]y of solution 00:00: bedtime. [place] 00 Apply to Medical Nails. Branch ciclopirox 2019-0 Yes [id number] Apply to [facility] 8 % 3-28 area(s) at [facility]y of solution 00:00: bedtime. [place] 00 Apply to Medical Nails. Branch ciclopirox 2019-0 Yes [id number] Apply to [facility] 8 % 3-28 area(s) at [facility]y of solution 00:00: bedtime. [place] 00 Apply to Medical Nails. Branch ciclopirox 2019-0 Yes [id number] Apply to [facility] 8 % 3-28 area(s) at ity of solution 00:00: bedtime. [place] 00 Apply to Medical Nails. Branch ciclopirox 2019-0 Yes [id number] Apply to [facility] 8 % 3-28 area(s) at ity of solution 00:00: bedtime. [place] 00 Apply to Medical Nails. Branch ciclopirox 2019-0 Yes [id number] Apply to [facility] 8 % 3-28 area(s) at ity of solution 00:00: bedtime. [place] 00 Apply to Medical Nails. Branch ciclopirox 2019-0 Yes [id number] Apply to [facility] 8 % 3-28 area(s) at ity of solution 00:00: bedtime. [place] 00 Apply to Medical Nails. Branch ciclopirox 2019-0 Yes [id number] Apply to [facility] 8 % 3-28 area(s) at ity of solution 00:00: bedtime. [place] 00 Apply to Medical Nails. Branch ciclopirox 2019-0 Yes [id number] Apply to [facility] 8 % 3-28 area(s) at ity of solution 00:00: bedtime. [place] 00 Apply to Medical Nails. Branch ciclopirox 2019-0 Yes [id number] Apply to [facility] 8 % 3-28 area(s) at ity of solution 00:00: bedtime. [place] 00 Apply to Medical Nails. Branch ciclopirox 2019-0 Yes [id number] Apply to [facility] 8 % 3-28 area(s) at ity of solution 00:00: bedtime. [place] 00 Apply to Medical Nails. Branch ciclopirox 2019-0 Yes [id number] Apply to [facility] 8 % 3-28 area(s) at ity of solution 00:00: bedtime. [place] 00 Apply to Medical Nails. Branch ciclopirox 2019-0 Yes [id number] Apply to [facility] 8 % 3-28 area(s) at ity of solution 00:00: bedtime. [place] 00 Apply to Medical Nails. Branch ciclopirox 2019-0 Yes [id number] Apply to [facility] 8 % 3-28 area(s) at ity of solution 00:00: bedtime. [place] 00 Apply to Medical Nails. Branch ciclopirox 2019-0 Yes [id number] Apply to [facility] 8 % 3-28 area(s) at ity of solution 00:00: bedtime. [place] 00 Apply to Medical Nails. Branch ciclopirox 2019-0 Yes [id number] Apply to [facility] 8 % 3-28 area(s) at [facility]y of solution 00:00: bedtime. [place] 00 Apply to Medical Nails. Branch ciclopirox 2019-0 Yes [id number] Apply to [facility] 8 % 3-28 area(s) at ity of solution 00:00: bedtime. [place] 00 Apply to Medical Nails. Branch ciclopirox 2019-0 Yes [id number] Apply to [facility] 8 % 3-28 area(s) at [facility]y of solution 00:00: bedtime. [place] 00 Apply to Medical Nails. Branch ciclopirox 2019-0 Yes [id number] Apply to [facility] 8 % 3-28 area(s) at ity of solution 00:00: bedtime. [place] 00 Apply to Medical Nails. Branch ciclopirox 2019-0 Yes [id number] Apply to [facility] 8 % 3-28 area(s) at ity of solution 00:00: bedtime. [place] 00 Apply to Medical Nails. Branch ciclopirox 2019-0 Yes [id number] Apply to [facility] 8 % 3-28 area(s) at ity of solution 00:00: bedtime. [place] 00 Apply to Medical Nails. Branch ciclopirox 2019-0 Yes [id number] Apply to [facility] 8 % 3-28 area(s) at ity of solution 00:00: bedtime. [place] 00 Apply to Medical Nails. Branch ciclopirox 2019-0 Yes [id number] Apply to [facility] 8 % 3-28 area(s) at ity of solution 00:00: bedtime. [place] 00 Apply to Medical Nails. Branch ciclopirox 2019-0 Yes [id number] Apply to [facility] 8 % 3-28 area(s) at ity of solution 00:00: bedtime. [place] 00 Apply to Medical Nails. Branch ciclopirox 2019-0 Yes [id number] Apply to [facility] 8 % 3-28 area(s) at ity of solution 00:00: bedtime. [place] 00 Apply to Medical Nails. Branch ciclopirox 2019-0 Yes [id number] Apply to [facility] 8 % 3-28 area(s) at ity of solution 00:00: bedtime. [place] 00 Apply to Medical Nails. Branch ciclopirox 2019-0 Yes [id number] Apply to [facility] 8 % 3-28 area(s) at ity of solution 00:00: bedtime. [place] 00 Apply to Medical Nails. Branch ciclopirox 2019-0 Yes [id number] Apply to [facility] 8 % 3-28 area(s) at ity of solution 00:00: bedtime. [place] 00 Apply to Medical Nails. Branch ciclopirox 2019-0 Yes [id number] Apply to [facility] 8 % 3-28 area(s) at ity of solution 00:00: bedtime. [place] 00 Apply to Medical Nails. Branch ciclopirox 2019-0 Yes [id number] Apply to [facility] 8 % 3-28 area(s) at ity of solution 00:00: bedtime. [place] 00 Apply to Medical Nails. Branch ciclopirox 2019-0 Yes [id number] Apply to [facility] 8 % 3-28 area(s) at ity of solution 00:00: bedtime. [place] 00 Apply to Medical Nails. Branch ciclopirox 2019-0 Yes [id number] Apply to [facility] 8 % 3-28 area(s) at ity of solution 00:00: bedtime. [place] 00 Apply to Medical Nails. Branch ciclopirox 2019-0 Yes [id number] Apply to [facility] 8 % 3-28 area(s) at ity of solution 00:00: bedtime. [place] 00 Apply to Medical Nails. Branch ciclopirox 2019-0 Yes [id number] Apply to [facility] 8 % 3-28 area(s) at ity of solution 00:00: bedtime. [place] 00 Apply to Medical Nails. Branch ciclopirox 2019-0 Yes [id number] Apply to [facility] 8 % 3-28 area(s) at ity of solution 00:00: bedtime. [place] 00 Apply to Medical Nails. Branch ciclopirox 2019-0 Yes [id number] Apply to [facility] 8 % 3-28 area(s) at ity of solution 00:00: bedtime. [place] 00 Apply to Medical Nails. Branch ciclopirox 2019-0 Yes [id number] Apply to [facility] 8 % 3-28 area(s) at ity of solution 00:00: bedtime. [place] 00 Apply to Medical Nails. Branch ciclopirox 2019-0 Yes [id number] Apply to [facility] 8 % 3-28 area(s) at ity of solution 00:00: bedtime. [place] 00 Apply to Medical Nails. Branch ciclopirox 2019-0 Yes [id number] Apply to [facility] 8 % 3-28 area(s) at ity of solution 00:00: bedtime. [place] 00 Apply to Medical Nails. Branch ciclopirox 2019-0 Yes [id number] Apply to [facility] 8 % 3-28 area(s) at ity of solution 00:00: bedtime. [place] 00 Apply to Medical Nails. Branch ciclopirox 2019-0 Yes [id number] Apply to [facility] 8 % 3-28 area(s) at ity of solution 00:00: bedtime. [place] 00 Apply to Medical Nails. Branch ciclopirox 2019-0 Yes [id number] Apply to [facility] 8 % 3-28 area(s) at ity of solution 00:00: bedtime. [place] 00 Apply to Medical Nails. Branch ciclopirox 2019-0 Yes [id number] Apply to [facility] 8 % 3-28 area(s) at ity of solution 00:00: bedtime. [place] 00 Apply to Medical Nails. Branch ciclopirox 2019-0 Yes [id number] Apply to [facility] 8 % 3-28 area(s) at ity of solution 00:00: bedtime. [place] 00 Apply to Medical Nails. Branch ciclopirox 2019-0 Yes [id number] Apply to [facility] 8 % 3-28 area(s) at ity of solution 00:00: bedtime. [place] 00 Apply to Medical Nails. Branch ciclopirox 2019-0 Yes [id number] Apply to [facility] 8 % 3-28 area(s) at ity of solution 00:00: bedtime. [place] 00 Apply to Medical Nails. Branch ciclopirox 2019-0 Yes [id number] Apply to [facility] 8 % 3-28 area(s) at ity of solution 00:00: bedtime. [place] 00 Apply to Medical Nails. Branch ciclopirox 2019-0 Yes [id number] Apply to [facility] 8 % 3-28 area(s) at ity of solution 00:00: bedtime. [place] 00 Apply to Medical Nails. Branch ciclopirox 2019-0 Yes [id number] Apply to [facility] 8 % 3-28 area(s) at ity of solution 00:00: bedtime. [place] 00 Apply to Medical Nails. Branch ciclopirox 2019-0 Yes [id number] Apply to [facility] 8 % 3-28 area(s) at ity of solution 00:00: bedtime. [place] 00 Apply to Medical Nails. Branch ciclopirox 2019-0 Yes [id number] Apply to [facility] 8 % 3-28 area(s) at ity of solution 00:00: bedtime. [place] 00 Apply to Medical Nails. Branch ciclopirox 2019-0 Yes [id number] Apply to [facility] 8 % 3-28 area(s) at ity of solution 00:00: bedtime. [place] 00 Apply to Medical Nails. Branch ciclopirox 2019-0 Yes [id number] Apply to [facility] 8 % 3-28 area(s) at ity of solution 00:00: bedtime. [place] 00 Apply to Medical Nails. Branch ciclopirox 2019-0 Yes [id number] Apply to [facility] 8 % 3-28 area(s) at ity of solution 00:00: bedtime. [place] 00 Apply to Medical Nails. Branch ciclopirox 2019-0 Yes [id number] Apply to [facility] 8 % 3-28 area(s) at ity of solution 00:00: bedtime. [place] 00 Apply to Medical Nails. Branch ciclopirox 2019-0 Yes [id number] Apply to [facility] 8 % 3-28 area(s) at ity of solution 00:00: bedtime. [place] 00 Apply to Medical Nails. Branch ciclopirox 2019-0 Yes [id number] Apply to [facility] 8 % 3-28 area(s) at ity of solution 00:00: bedtime. [place] 00 Apply to Medical Nails. Branch ciclopirox 2019-0 Yes [id number] Apply to [facility] 8 % 3-28 area(s) at ity of solution 00:00: bedtime. [place] 00 Apply to Medical Nails. Branch ciclopirox 2019-0 Yes [id number] Apply to [facility] 8 % 3-28 area(s) at ity of solution 00:00: bedtime. [place] 00 Apply to Medical Nails. Branch ciclopirox 2019-0 Yes [id number] Apply to [facility] 8 % 3-28 area(s) at ity of solution 00:00: bedtime. [place] 00 Apply to Medical Nails. Branch ciclopirox 2019-0 Yes [id number] Apply to [facility] 8 % 3-28 area(s) at ity of solution 00:00: bedtime. [place] 00 Apply to Medical Nails. Branch ciclopirox 2019-0 Yes [id number] Apply to [facility] 8 % 3-28 area(s) at ity of solution 00:00: bedtime. [place] 00 Apply to Medical Nails. Branch ciclopirox 2019-0 Yes [id number] Apply to [facility] 8 % 3-28 area(s) at ity of solution 00:00: bedtime. [place] 00 Apply to Medical Nails. Branch ciclopirox 2019-0 Yes [id number] Apply to [facility] 8 % 3-28 area(s) at ity of solution 00:00: bedtime. [place] 00 Apply to Medical Nails. Branch ciclopirox 2019-0 Yes [id number] Apply to [facility] 8 % 3-28 area(s) at ity of solution 00:00: bedtime. [place] 00 Apply to Medical Nails. Branch ciclopirox 2019-0 Yes [id number] Apply to [facility] 8 % 3-28 area(s) at ity of solution 00:00: bedtime. [place] 00 Apply to Medical Nails. Branch ciclopirox 2019-0 Yes [id number] Apply to [facility] 8 % 3-28 area(s) at ity of solution 00:00: bedtime. [place] 00 Apply to Medical Nails. Branch ciclopirox 2019-0 Yes [id number] Apply to [facility] 8 % 3-28 area(s) at ity of solution 00:00: bedtime. [place] 00 Apply to Medical Nails. Branch ciclopirox 2019-0 Yes [id number] Apply to [facility] 8 % 3-28 area(s) at ity of solution 00:00: bedtime. [place] 00 Apply to [facility] ciclopirox 2019-0 Yes [id number] Apply to [facility] 8 % 3-28 area(s) at ity of solution 00:00: bedtime. [place] 00 Apply to [facility] ciclopirox 2019-0 Yes [id number] Apply to [facility] 8 % 3-28 area(s) at ity of solution 00:00: bedtime. [place] 00 Apply to [facility] ciclopirox 2019-0 Yes [id number] Apply to [facility] 8 % 3-28 area(s) at ity of solution 00:00: bedtime. [place] 00 Apply to [facility] ciclopirox 2019-0 Yes [id number] Apply to [facility] 8 % 3-28 area(s) at ity of solution 00:00: bedtime. [place] 00 Apply to [facility] ciclopirox 2019-0 Yes [id number] Apply to [facility] 8 % 3-28 area(s) at ity of solution 00:00: bedtime. [place] 00 Apply to [facility] ciclopirox 2019-0 Yes [id number] Apply to [facility] 8 % 3-28 area(s) at ity of solution 00:00: bedtime. [place] 00 Apply to [facility] ciclopirox 2019-0 Yes [id number] Apply to [facility] 8 % 3-28 area(s) at ity of solution 00:00: bedtime. [place] 00 Apply to [facility] ciclopirox 2019-0 Yes [id number] Apply to [facility] 8 % 3-28 area(s) at ity of solution 00:00: bedtime. [place] 00 Apply to [facility] ciclopirox 2019-0 Yes [id number] Apply to [facility] 8 % 3-28 area(s) at ity of solution 00:00: bedtime. [place] 00 Apply to [facility] ciclopirox 2019-0 Yes [id number] Apply to [facility] 8 % 3-28 area(s) at ity of solution 00:00: bedtime. [place] 00 Apply to [facility] ciclopirox 2019-0 Yes [id number] Apply to [facility] 8 % 3-28 area(s) at ity of solution 00:00: bedtime. [place] 00 Apply to [facility] ciclopirox 2019-0 Yes [id number] Apply to [facility] 8 % 3-28 area(s) at ity of solution 00:00: bedtime. [place] 00 Apply to [facility] ciclopirox 2019-0 Yes [id number] Apply to [facility] 8 % 3-28 area(s) at ity of solution 00:00: bedtime. [place] 00 Apply to [facility] ciclopirox 2019-0 Yes [id number] Apply to [facility] 8 % 3-28 area(s) at ity of solution 00:00: bedtime. [place] 00 Apply to [facility] ciclopirox 2019-0 Yes [id number] Apply to [facility] 8 % 3-28 area(s) at ity of solution 00:00: bedtime. [place] 00 Apply to [facility] ciclopirox 2019-0 Yes [id number] Apply to [facility] 8 % 3-28 area(s) at ity of solution 00:00: bedtime. [place] 00 Apply to [facility] ciclopirox 2019-0 Yes [id number] Apply to [facility] 8 % 3-28 area(s) at ity of solution 00:00: bedtime. [place] 00 Apply to [facility] ciclopirox 2019-0 Yes [id number] Apply to [facility] 8 % 3-28 area(s) at ity of solution 00:00: bedtime. [place] 00 Apply to [facility] ciclopirox 2019-0 Yes [id number] Apply to [facility] 8 % 3-28 area(s) at ity of solution 00:00: bedtime. [place] 00 Apply to [facility] ciclopirox 2019-0 Yes [id number] Apply to [facility] 8 % 3-28 area(s) at ity of solution 00:00: bedtime. [place] 00 Apply to [facility] ciclopirox 2019-0 Yes [id number] Apply to [facility] 8 % 3-28 area(s) at ity of solution 00:00: bedtime. [place] 00 Apply to [facility] ciclopirox 2019-0 Yes [id number] Apply to [facility] 8 % 3-28 area(s) at ity of solution 00:00: bedtime. [place] 00 Apply to [facility] ciclopirox 2019-0 Yes [id number] Apply to [facility] 8 % 3-28 area(s) at ity of solution 00:00: bedtime. [place] 00 Apply to [facility] ciclopirox 2019-0 Yes [id number] Apply to [facility] 8 % 3-28 area(s) at ity of solution 00:00: bedtime. [place] 00 Apply to [facility] ciclopirox 2019-0 Yes [id number] Apply to [facility] 8 % 3-28 area(s) at ity of solution 00:00: bedtime. [place] 00 Apply to [facility] ciclopirox 2019-0 Yes [id number] Apply to [facility] 8 % 3-28 area(s) at ity of solution 00:00: bedtime. [place] 00 Apply to [facility] ciclopirox 2019-0 Yes [id number] Apply to [facility] 8 % 3-28 area(s) at ity of solution 00:00: bedtime. [place] 00 Apply to [facility] ciclopirox 2019-0 Yes [id number] Apply to [facility] 8 % 3-28 area(s) at ity of solution 00:00: bedtime. [place] 00 Apply to [facility] ciclopirox 2019-0 Yes [id number] Apply to [facility] 8 % 3-28 area(s) at ity of solution 00:00: bedtime. [place] 00 Apply to [facility] ciclopirox 2019-0 Yes [id number] Apply to [facility] 8 % 3-28 area(s) at ity of solution 00:00: bedtime. [place] 00 Apply to [facility] ciclopirox 2019-0 Yes [id number] Apply to [facility] 8 % 3-28 area(s) at ity of solution 00:00: bedtime. [place] 00 Apply to [facility] ciclopirox 2019-0 Yes [id number] Apply to [facility] 8 % 3-28 area(s) at ity of solution 00:00: bedtime. [place] 00 Apply to [facility] ciclopirox 2019-0 Yes [id number] Apply to [facility] 8 % 3-28 area(s) at ity of solution 00:00: bedtime. [place] 00 Apply to [facility] ciclopirox 2019-0 Yes [id number] Apply to [facility] 8 % 3-28 area(s) at ity of solution 00:00: bedtime. [place] 00 Apply to [facility] ciclopirox 2019-0 Yes [id number] Apply to [facility] 8 % 3-28 area(s) at ity of solution 00:00: bedtime. [place] 00 Apply to [facility] ciclopirox 2019-0 Yes [id number] Apply to [facility] 8 % 3-28 area(s) at ity of solution 00:00: bedtime. [place] 00 Apply to [facility] ciclopirox 2019-0 Yes [id number] Apply to [facility] 8 % 3-28 area(s) at ity of solution 00:00: bedtime. [place] 00 Apply to [facility] ciclopirox 2019-0 Yes [id number] Apply to [facility] 8 % 3-28 area(s) at ity of solution 00:00: bedtime. [place] 00 Apply to [facility] ciclopirox 2019-0 Yes [id number] Apply to [facility] 8 % 3-28 area(s) at ity of solution 00:00: bedtime. [place] 00 Apply to [facility] ciclopirox 2019-0 Yes [id number] Apply to [facility] 8 % 3-28 area(s) at ity of solution 00:00: bedtime. [place] 00 Apply to [facility] ciclopirox 2019-0 Yes [id number] Apply to [facility] 8 % 3-28 area(s) at ity of solution 00:00: bedtime. [place] 00 Apply to [facility] ciclopirox 2019-0 Yes [id number] Apply to [facility] 8 % 3-28 area(s) at ity of solution 00:00: bedtime. [place] 00 Apply to [facility] ciclopirox 2019-0 Yes [id number] Apply to [facility] 8 % 3-28 area(s) at ity of solution 00:00: bedtime. [place] 00 Apply to [facility] ciclopirox 2019-0 Yes [id number] Apply to [facility] 8 % 3-28 area(s) at ity of solution 00:00: bedtime. [place] 00 Apply to [facility] ciclopirox 2019-0 Yes [id number] Apply to [facility] 8 % 3-28 area(s) at ity of solution 00:00: bedtime. [place] 00 Apply to [facility] ciclopirox 2019-0 Yes [id number] Apply to [facility] 8 % 3-28 area(s) at ity of solution 00:00: bedtime. [place] 00 Apply to [facility] ciclopirox 2019-0 Yes [id number] Apply to [facility] 8 % 3-28 area(s) at ity of solution 00:00: bedtime. [place] 00 Apply to [facility] ciclopirox 2019-0 Yes [id number] Apply to [facility] 8 % 3-28 area(s) at ity of solution 00:00: bedtime. [place] 00 Apply to [facility] ciclopirox 2019-0 Yes [id number] Apply to [facility] 8 % 3-28 area(s) at ity of solution 00:00: bedtime. [place] 00 Apply to [facility] ciclopirox 2019-0 Yes [id number] Apply to [facility] 8 % 3-28 area(s) at ity of solution 00:00: bedtime. [place] 00 Apply to [facility] ciclopirox 2019-0 Yes [id number] Apply to [facility] 8 % 3-28 area(s) at ity of solution 00:00: bedtime. [place] 00 Apply to [facility] ciclopirox 2019-0 Yes [id number] Apply to [facility] 8 % 3-28 area(s) at ity of solution 00:00: bedtime. [place] 00 Apply to [facility] ciclopirox 2019-0 Yes [id number] Apply to [facility] 8 % 3-28 area(s) at ity of solution 00:00: bedtime. [place] 00 Apply to [facility] ciclopirox 2019-0 Yes [id number] Apply to [facility] 8 % 3-28 area(s) at ity of solution 00:00: bedtime. [place] 00 Apply to [facility] ciclopirox 2019-0 Yes [id number] Apply to [facility] 8 % 3-28 area(s) at ity of solution 00:00: bedtime. [place] 00 Apply to [facility] ciclopirox 2019-0 Yes [id number] Apply to [facility] 8 % 3-28 area(s) at ity of solution 00:00: bedtime. [place] 00 Apply to [facility] ciclopirox 2019-0 Yes [id number] Apply to [facility] 8 % 3-28 area(s) at ity of solution 00:00: bedtime. [place] 00 Apply to [facility] ciclopirox 2019-0 Yes [id number] Apply to [facility] 8 % 3-28 area(s) at ity of solution 00:00: bedtime. [place] 00 Apply to [facility] ciclopirox Yes [id number] Apply to [facility] 8 % 3-28 area(s) at ity of solution 00:00: bedtime. [place] 00 Apply to [facility] ciclopirox Yes [id number] Apply to [facility] 8 % 3-28 area(s) at ity of solution 00:00: bedtime. [place] 00 Apply to [facility] alcaftadine Yes Place in [facility] [place] (LASTACAFT) 1 each eye. ity of 0.25 % Drop 20:36: [place] [address] [facility] CYCLOS[address] Yes Place in [facility] [place] [facility] (RESTASIS 10-09 each eye. ity of OPHTHALMIC) 20:36: [place] [address] [facility] Branch ASCORBATE Yes Take by [email or web address] rs CALCIUM 10-09 mouth. ity of (VITAMIN C 20:36: [place] ORAL) Medical Branch DOCOSAHEXAN Yes Take by Uni vers OIC 10-09 mouth. ity of ACID/EPA 20:36: [place] (FISH OIL 33 Medical ORAL) Branch vitamin E Yes 1000U Take 1,000 U nivers 1,000 unit 10-09 Units by ity o f capsule 20:36: mouth [place] 33 daily. Medical Branch Magnesium Yes Take by [email or web address] rs 250 mg Tab 10-09 mouth. ity of 20:36: [place] [address] [facility] Branch vitamin B-6 Yes 100mg Take 100 U nivers (VITAMIN 1-23 mg by ity of B-6) 100 mg 20:36: mouth [place] tablet 33 daily. Medical Branch CALCIUM Yes Take by [facility] CARBONATE/V 10-09 mouth. ity of ITAMIN D3 20:36: [place] (VITAMIN Medical D-3 ORAL) Branch alcaftadine Yes Place in [place] (LASTACAFT) 1 each eye. ity of 0.25 % Drop 20:36: [place] [address] [facility] CYCLOSPORIN Yes Place in [place] [facility] (RESTASIS 10-09 each eye. ity of OPHTHALMIC) 20:36: [place] [address] [facility] Branch ASCORBATE Yes Take by [email or web address] rs CALCIUM - mouth. ity of (VITAMIN C 20:36: [place] ORAL) Medical Branch DOCOSAHEXAN Yes Take by Uni vers OIC 1-23 mouth. ity of ACID/EPA 20:36: [place] (FISH OIL 33 Medical ORAL) Branch vitamin E Yes 1000U Take 1,000 U nivers 1,000 unit 1-23 Units by ity o f capsule 20:36: mouth [place] 33 daily. Medical Branch Magnesium Yes Take by [facility] rs 250 mg Tab 1- mouth. ity of 20:36: [place] [address] [facility] Branch vitamin B-6 Yes 100mg Take 100 U nivers (VITAMIN 1-23 mg by ity of B-6) 100 mg 20:36: mouth [place] tablet 33 daily. Medical Branch CALCIUM Yes Take by [facility] CARBONATE/V -23 mouth. ity of ITAMIN D3 20:36: [place] (VITAMIN 33 Medical D-3 ORAL) Branch alcaftadine Yes Place in [place] (LASTACAFT) 10-09 each eye. ity of 0.25 % Drop 20:36: [place] [address] [facility] CYCLOS[address]IN Yes Place in [place] [facility] (RESTASIS 10-09 each eye. ity of OPHTHALMIC) 20:36: [place] [address] [facility] Branch ASCORBATE Yes Take by Un[facility] rs CALCIUM 1-23 mouth. ity of (VITAMIN C 20:36: [place] ORAL) Medical Branch DOCOSAHEXAN Yes Take by Uni vers OIC 1-23 mouth. ity of ACID/EPA 20:36: [place] (FISH OIL 33 Medical ORAL) Branch vitamin E Yes 1000U Take 1,000 U nivers 1,000 unit 1-23 Units by ity o f capsule 20:36: mouth [place] 33 daily. Medical Branch Magnesium Yes Take by [facility] rs 250 mg Tab 1-23 mouth. ity of 20:36: [place] [address] [facility] Branch vitamin B-6 Yes 100mg Take 100 U nivers (VITAMIN 1-23 mg by ity of B-6) 100 mg 20:36: mouth [place] tablet 33 daily. Medical Branch CALCIUM Yes Take by [facility] CARBONATE/V 1-23 mouth. ity of ITAMIN D3 20:36: [place] (VITAMIN 33 Medical D-3 ORAL) Branch alcaftadine Yes Place in [place] (LASTACAFT) 1-23 each eye. ity of 0.25 % Drop 20:36: [place] [address] [facility] CYCLOSPORIN [address] [place] (RESTASIS 1-23 each eye. ity of OPHTHALMIC) 20:36: [place] [address] [facility] Branch ASCORBATE 2018-0 Yes Take by Un[facility] rs CALCIUM - mouth. ity of (VITAMIN C 20:36: [place] ORAL) Medical Branch DOCOSAHEXAN Yes Take by Uni vers OIC 10-09 mouth. ity of ACID/EPA 20:36: [place] (FISH OIL 33 Medical ORAL) Branch vitamin E Yes 1000U Take 1,000 U nivers 1,000 unit 1-23 Units by ity o f capsule 20:36: mouth [place] 33 daily. Medical Branch Magnesium Yes Take by [facility] rs 250 mg Tab - mouth. ity of 20:36: [place] [address] [facility] Branch vitamin B-6 Yes 100mg Take 100 U nivers (VITAMIN 1-23 mg by ity of B-6) 100 mg 20:36: mouth [place] tablet 33 daily. Medical Branch CALCIUM Yes Take by [facility] CARBONATE/V 10-09 mouth. ity of ITAMIN D3 20:36: [place] (VITAMIN Medical D-3 ORAL) Branch alcaftadine Yes Place in [place] (LASTACAFT) 1- each eye. ity of 0.25 % Drop 20:36: [place] [address] [facility] CYCLOSPORIN Yes Place in [place] [facility] (RESTASIS 1- each eye. ity of OPHTHALMIC) 20:36: [place] [address] [facility] Branch ASCORBATE Yes Take by Un[facility] rs CALCIUM - mouth. ity of (VITAMIN C 20:36: [place] ORAL) Medical Branch DOCOSAHEXAN Yes Take by Uni vers OIC -23 mouth. ity of ACID/EPA 20:36: [place] (FISH OIL 33 Medical ORAL) Branch vitamin E Yes 1000U Take 1,000 U nivers 1,000 unit 1-23 Units by ity o f capsule 20:36: mouth [place] 33 daily. Medical Branch Magnesium 0 Yes Take by Un[facility] rs 250 mg Tab - mouth. ity of 20:36: [place] [address] [facility] Branch vitamin B-6 Yes 100mg Take 100 U nivers (VITAMIN 1-23 mg by ity of B-6) 100 mg 20:36: mouth [place] tablet 33 daily. Medical Branch CALCIUM Yes Take by [facility] CARBONATE/V -23 mouth. ity of ITAMIN D3 20:36: [place] (VITAMIN 33 Medical D-3 ORAL) Branch alcaftadine Yes Place in [place] (LASTACAFT) 1- each eye. ity of 0.25 % Drop 20:36: [place] [address] [facility] CYCLOSPORIN Yes Place in [place] [facility] (RESTASIS 10-09 each eye. ity of OPHTHALMIC) 20:36: [place] [address] [facility] Branch ASCORBATE Yes Take by Un[facility] rs CALCIUM - mouth. ity of (VITAMIN C 20:36: [place] ORAL) Medical Branch DOCOSAHEXAN Yes Take by Uni vers OIC 10-09 mouth. ity of ACID/EPA 20:36: [place] (FISH OIL 33 Medical ORAL) Branch vitamin E Yes 1000U Take 1,000 U nivers 1,000 unit 10-09 Units by ity o f capsule 20:36: mouth [place] 33 daily. Medical Branch Magnesium Yes Take by Univ ers 250 mg Tab 10-09 mouth. ity of 20:36: [place] [address] [facility] Branch vitamin B-6 Yes 100mg Take 100 U nivers (VITAMIN 1-23 mg by ity of B-6) 100 mg 20:36: mouth [place] tablet 33 daily. Medical Branch CALCIUM Yes Take by [facility] CARBONATE/V - mouth. ity of ITAMIN D3 20:36: [place] (VITAMIN 33 Medical D-3 ORAL) Branch alcaftadine Yes Place in [place] (LASTACAFT) 1- each eye. ity of 0.25 % Drop 20:36: [place] [address] [facility] CYCLOSPORIN Yes Place in [place] (RESTASIS 10-09 each eye. ity of OPHTHALMIC) 20:36: [place] [address] [facility] Branch ASCORBATE 0 Yes Take by Unive rs CALCIUM - mouth. ity of (VITAMIN C 20:36: [place] ORAL) Medical Branch DOCOSAHEXAN Yes Take by Uni vers OIC - mouth. ity of ACID/EPA 20:36: [place] (FISH OIL 33 Medical ORAL) Branch vitamin E Yes 1000U Take 1,000 U nivers 1,000 unit 1-23 Units by ity o f capsule 20:36: mouth [place] 33 daily. Medical Branch Magnesium Yes Take by [facility] rs 250 mg Tab 1-23 mouth. ity of 20:36: [address] Branch vitamin B-6 Yes 100mg Take 100 U nivers (VITAMIN 1-23 mg by ity of B-6) 100 mg 20:36: mouth [place] tablet 33 daily. Medical Branch CALCIUM Yes Take by [facility] CARBONATE/V 1-23 mouth. ity of ITAMIN D3 20:36: [place] (VITAMIN 33 Medical D-3 ORAL) Branch alcaftadine Yes Place in [place] (LASTACAFT) 1-23 each eye. ity of 0.25 % Drop 20:36: [address] Branch CYCLOSPORIN Yes Place in [place] (RESTASIS 1-23 each eye. ity of OPHTHALMIC) 20:36: [place] [address] [facility] Branch ASCORBATE Yes Take by Un[facility] rs CALCIUM 1-23 mouth. ity of (VITAMIN C 20:36: [place] ORAL) Medical Branch DOCOSAHEXAN Yes Take by Uni vers OIC 1- mouth. ity of ACID/EPA 20:36: [place] (FISH OIL 33 Medical ORAL) Branch vitamin E Yes 1000U Take 1,000 U nivers 1,000 unit 1-23 Units by ity o f capsule 20:36: mouth [place] 33 daily. Medical Branch Magnesium Yes Take by [facility] 250 mg Tab 1-23 mouth. ity of 20:36: [place] [address] [facility] Branch vitamin B-6 Yes 100mg Take 100 U nivers (VITAMIN 1-23 mg by ity of B-6) 100 mg 20:36: mouth [place] tablet 33 daily. Medical Branch CALCIUM Yes Take by [facility] CARBONATE/V 1-23 mouth. ity of ITAMIN D3 20:36: [place] (VITAMIN 33 Medical D-3 ORAL) Branch alcaftadine Yes Place in [place] (LASTACAFT) 1-23 each eye. ity of 0.25 % Drop 20:36: [place] [address] [facility] CYCLOSPORIN Yes Place in [place] (RESTASIS 1-23 each eye. ity of OPHTHALMIC) 20:36: [place] [address] [facility] Branch ASCORBATE Yes Take by Un[facility] rs CALCIUM - mouth. ity of (VITAMIN C 20:36: [place] ORAL) Medical Branch DOCOSAHEXAN Yes Take by Uni vers OIC 10-09 mouth. ity of ACID/EPA 20:36: [place] (FISH OIL 33 Medical ORAL) Branch vitamin E Yes 1000U Take 1,000 U nivers 1,000 unit 1-23 Units by ity o f capsule 20:36: mouth [place] 33 daily. Medical Branch Magnesium Yes Take by [facility] rs 250 mg Tab - mouth. ity of 20:36: [place] [address] [facility] Branch vitamin B-6 Yes 100mg Take 100 U nivers (VITAMIN 1-23 mg by ity of B-6) 100 mg 20:36: mouth [place] tablet 33 daily. Medical Branch CALCIUM Yes Take by [facility] CARBONATE/V 10-09 mouth. ity of ITAMIN D3 20:36: [place] ([place] [id number] Medical D-3 ORAL) Branch alcaftadine Yes Place in [place] (LASTACAFT) 1- each eye. ity of 0.25 % Drop 20:36: [place] [address] [facility] Branch CYCLOSPORIN Yes Place in [place] [facility] (RESTASIS 1- each eye. ity of OPHTHALMIC) 20:36: [place] [address] [facility] Branch ASCORBATE Yes Take by Un[facility] rs CALCIUM - mouth. ity of (VITAMIN C 20:36: [place] ORAL) Medical Branch DOCOSAHEXAN Yes Take by Uni vers OIC 10-09 mouth. ity of ACID/EPA 20:36: [place] (FISH OIL 33 Medical ORAL) Branch vitamin E Yes 1000U Take 1,000 U nivers 1,000 unit 1-23 Units by ity o f capsule 20:36: mouth [place] 33 daily. Medical Branch Magnesium Yes Take by [facility] rs 250 mg Tab - mouth. ity of 20:36: [place] [address] [facility] Branch vitamin B-6 Yes 100mg Take 100 U nivers (VITAMIN 1-23 mg by ity of B-6) 100 mg 20:36: mouth [place] tablet 33 daily. Medical Branch CALCIUM 2019-0 Yes Take by [facility] CARBONATE/V - mouth. ity of ITAMIN D3 20:36: [place] (VITAMIN 33 Medical D-3 ORAL) Branch alcaftadine Yes Place in [place] (LASTACAFT) 1-23 each eye. ity of 0.25 % Drop 20:36: [place] [address] [facility] Branch CYCLOSPORIN Yes Place in [place] [facility] (RESTASIS 1-23 each eye. ity of OPHTHALMIC) 20:36: [place] [address] [facility] Branch ASCORBATE Yes Take by Un[facility] rs CALCIUM - mouth. ity of (VITAMIN C 20:36: [place] ORAL) Medical Branch DOCOSAHEXAN Yes Take by Uni vers OIC 10-09 mouth. ity of ACID/EPA 20:36: [place] (FISH OIL 33 Medical ORAL) Branch vitamin E Yes 1000U Take 1,000 U nivers 1,000 unit 1-23 Units by ity o f capsule 20:36: mouth [place] 33 daily. Medical Branch Magnesium Yes Take by [facility] rs 250 mg Tab 10-09 mouth. ity of 20:36: [address] Branch vitamin B-6 Yes 100mg Take 100 U nivers (VITAMIN 1-23 mg by ity of B-6) 100 mg 20:36: mouth [place] tablet 33 daily. Medical Branch CALCIUM Yes Take by [facility] CARBONATE/V - mouth. ity of ITAMIN D3 20:36: [place] (VITAMIN 33 Medical D-3 ORAL) Branch alcaftadine Yes Place in [place] (LASTACAFT) 1- each eye. ity of 0.25 % Drop 20:36: [place] [address] [facility] Branch CYCLOSPORIN Yes Place in [place] [facility] (RESTASIS 1-23 each eye. ity of OPHTHALMIC) 20:36: [place] [address] [facility] Branch ASCORBATE Yes Take by Un[facility] rs CALCIUM 1-23 mouth. ity of (VITAMIN C 20:36: [place] ORAL) Medical Branch DOCOSAHEXAN 0 Yes Take by Uni vers OIC - mouth. ity of ACID/EPA 20:36: [place] (FISH OIL 33 Medical ORAL) Branch vitamin E Yes 1000U Take 1,000 U nivers 1,000 unit 1-23 Units by ity o f capsule 20:36: mouth [place] 33 daily. Medical Branch Magnesium Yes Take by [facility] 250 mg Tab 1- mouth. ity of 20:36: [place] [address] [facility] Branch vitamin B-6 Yes 100mg Take 100 U nivers (VITAMIN 1-23 mg by ity of B-6) 100 mg 20:36: mouth [place] tablet 33 daily. Medical Branch CALCIUM Yes Take by [facility] CARBONATE/V - mouth. ity of ITAMIN D3 20:36: [place] (VITAMIN 33 Medical D-3 ORAL) Branch alcaftadine Yes Place in [place] (LASTACAFT) 10-09 each eye. ity of 0.25 % Drop 20:36: [address] Branch CYCLOSPORIN Yes Place in [place] (RESTASIS 10-09 each eye. ity of OPHTHALMIC) 20:36: [place] [address] [facility] Branch ASCORBATE Yes Take by Un[facility] rs CALCIUM - mouth. ity of (VITAMIN C 20:36: [place] ORAL) Medical Branch DOCOSAHEXAN Yes Take by Uni vers OIC 10-09 mouth. ity of ACID/EPA 20:36: [place] (FISH OIL Medical ORAL) Branch vitamin E Yes 1000U Take 1,000 U nivers 1,000 unit - Units by ity o f capsule 20:36: mouth [place] 33 daily. Medical Branch Magnesium Yes Take by [facility] 250 mg Tab - mouth. ity of 20:36: [place] [address] [facility] Branch vitamin B-6 Yes 100mg Take 100 U nivers (VITAMIN 1-23 mg by ity of B-6) 100 mg 20:36: mouth [place] tablet 33 daily. Medical Branch CALCIUM Yes Take by [facility] CARBONATE/V -23 mouth. ity of ITAMIN D3 20:36: [place] (VITAMIN 33 Medical D-3 ORAL) Branch traZODone traZODone No traZODone HCl 100 MG HCl 100 MG HCl 100 MG Ibandronate Ibandronate No Ibandronat Sodium 150 Sodium 150 e Sodium MG MG 150 MG metFORMIN metFORMIN No metFORMIN HCl ER 500 HCl ER 500 HCl ER 500 MG MG MG Vitamin C Vitamin C No Vitamin C 500 MG 500 MG 500 MG Pravastatin Pravastatin No Pravastati Sodium 10 Sodium 10 n Sodium MG MG 10 MG Losartan Losartan No Losartan Potassium Potassium Potassium 50 MG 50 MG 50 MG Vitamin E Vitamin E No Vitamin E Lastacaft Lastacaft No 1{drop_ QD Lastacaft 0.25 % 0.25 % into_af 0.25 % fected_ eye} metFORMIN metFORMIN No metFORMIN HCl ER 500 HCl ER 500 HCl ER 500 MG MG MG Pravastatin Pravastatin No Pravastati Sodium 10 Sodium 10 n Sodium MG MG 10 MG Metoprolol Metoprolol No Metoprolol Succinate Succinate Succinate ER 50 MG ER 50 MG ER 50 MG Ibandronate Ibandronate No Ibandronat Sodium 150 Sodium 150 e Sodium MG MG 150 MG Citalopram Citalopram No 1{table QD Citalopram Hydrobromid Hydrobromid t} Hydrobromi e 10 MG e 10 MG de 10 MG Levothyroxi Levothyroxi No Levothyrox ne Sodium ne Sodium ine Sodium 50 MCG 50 MCG 50 MCG Vitamin D3 Vitamin D3 No Vitamin D3 Vitamin B6 Vitamin B6 No Vitamin B6 Magnesium Magnesium No Magnesium Losartan Losartan No 1{table QD Losartan Potassium Potassium t} Potassium 50 MG 50 MG 50 MG NexIUM NexIUM No NexIUM Metoprolol Metoprolol No Metoprolol Succinate Succinate Succinate ER 50 MG ER 50 MG ER 50 MG Losartan Losartan No Losartan Potassium Potassium Potassium 50 MG 50 MG 50 MG Vitamin E Vitamin E No Vitamin E Lastacaft Lastacaft No 1{drop_ QD Lastacaft 0.25 % 0.25 % into_af 0.25 % fected_ eye} Citalopram Citalopram No 1{table QD Citalopram Hydrobromid Hydrobromid t} Hydrobromi e 40 MG e 40 MG de 40 MG Pravastatin Pravastatin No Pravastati Sodium 20 Sodium 20 n Sodium MG MG 20 MG traZODone traZODone No traZODone HCl 100 MG HCl 100 MG HCl 100 MG metFORMIN metFORMIN No metFORMIN HCl ER 500 HCl ER 500 HCl ER 500 MG MG MG NexIUM NexIUM No NexIUM Vitamin B6 Vitamin B6 No Vitamin B6 Pravastatin Pravastatin No Pravastati Sodium 10 Sodium 10 n Sodium MG MG 10 MG Ibandronate Ibandronate No Ibandronat Sodium 150 Sodium 150 e Sodium MG MG 150 MG Magnesium Magnesium No Magnesium metFORMIN metFORMIN No metFORMIN HCl ER 500 HCl ER 500 HCl ER 500 MG MG MG Vitamin C Vitamin C No Vitamin C 500 MG 500 MG 500 MG Ibandronate Ibandronate No Ibandronat Sodium 150 Sodium 150 e Sodium MG MG 150 MG Metoprolol Metoprolol No 1{table QD Metoprolol Succinate Succinate t} Succinate ER 50 MG ER 50 MG ER 50 MG Vitamin D3 Vitamin D3 No Vitamin D3 Levothyroxi Levothyroxi No Levothyrox ne Sodium ne Sodium ine Sodium 75 MCG 75 MCG 75 MCG Losartan Losartan No 1{table QD Losartan Potassium Potassium t} Potassium 50 MG 50 MG 50 MG Metoprolol Metoprolol No Succinate Succinate ER 50 MG ER 50 MG Losartan Losartan No Potassium Potassium 50 MG 50 MG Vitamin E Vitamin E No Lastacaft Lastacaft No 1{drop_ QD 0.25 % 0.25 % into_af fected_ eye} Citalopram Citalopram No 1{table QD Hydrobromid Hydrobromid t} e 40 MG e 40 MG Pravastatin Pravastatin No Sodium 20 Sodium 20 MG MG traZODone traZODone No HCl 100 MG HCl 100 MG metFORMIN metFORMIN No HCl ER 500 HCl ER 500 MG MG NexIUM NexIUM No Vitamin B6 Vitamin B6 No Pravastatin Pravastatin No Sodium 10 Sodium 10 MG MG Ibandronate Ibandronate No Sodium 150 Sodium 150 MG MG Magnesium Magnesium No metFORMIN metFORMIN No HCl ER 500 HCl ER 500 MG MG Vitamin C Vitamin C No 500 MG 500 MG Ibandronate Ibandronate No Sodium 150 Sodium 150 MG MG Metoprolol Metoprolol No 1{table QD Succinate Succinate t} ER 50 MG ER 50 MG Vitamin D3 Vitamin D3 No Levothyroxi Levothyroxi No ne Sodium ne Sodium 75 MCG 75 MCG Losartan Losartan No 1{table QD Potassium Potassium t} 50 MG 50 MG Ibandronate Ibandronate No Ibandronat Sodium 150 Sodium 150 e Sodium MG MG 150 MG Metoprolol Metoprolol No 1{table QD Metoprolol Succinate Succinate t} Succinate ER 50 MG ER 50 MG ER 50 MG Vitamin C Vitamin C No Vitamin C 500 MG 500 MG 500 MG Vitamin E Vitamin E No Vitamin E Vitamin D3 Vitamin D3 No Vitamin D3 traZODone traZODone No traZODone HCl 100 MG HCl 100 MG HCl 100 MG Vitamin B6 Vitamin B6 No Vitamin B6 Lastacaft Lastacaft No 1{drop_ QD Lastacaft 0.25 % 0.25 % into_af 0.25 % fected_ eye} Ibandronate Ibandronate No Ibandronat Sodium 150 Sodium 150 e Sodium MG MG 150 MG Metoprolol Metoprolol No Metoprolol Succinate Succinate Succinate ER 50 MG ER 50 MG ER 50 MG Pravastatin Pravastatin No Pravastati Sodium 20 Sodium 20 n Sodium MG MG 20 MG Levothyroxi Levothyroxi No Levothyrox ne Sodium ne Sodium ine Sodium 75 MCG 75 MCG 75 MCG Pravastatin Pravastatin No Pravastati Sodium 10 Sodium 10 n Sodium MG MG 10 MG Citalopram Citalopram No 1{table QD Citalopram Hydrobromid Hydrobromid t} Hydrobromi e 40 MG e 40 MG de 40 MG NexIUM NexIUM No NexIUM Losartan Losartan No Losartan Potassium Potassium Potassium 50 MG 50 MG 50 MG metFORMIN metFORMIN No metFORMIN HCl ER 500 HCl ER 500 HCl ER 500 MG MG MG Citalopram Citalopram No Citalopram Hydrobromid Hydrobromid Hydrobromi e 40 MG e 40 MG de 40 MG Magnesium Magnesium No Magnesium metFORMIN metFORMIN No metFORMIN HCl ER 500 HCl ER 500 HCl ER 500 MG MG MG Losartan Losartan No 1{table QD Losartan Potassium Potassium t} Potassium 50 MG 50 MG 50 MG Losartan Losartan No 1{table QD Losartan Potassium Potassium t} Potassium 50 MG 50 MG 50 MG Citalopram Citalopram No 1{table QD Citalopram Hydrobromid Hydrobromid t} Hydrobromi e 40 MG e 40 MG de 40 MG Ibandronate Ibandronate No Ibandronat Sodium 150 Sodium 150 e Sodium MG MG 150 MG NexIUM NexIUM No NexIUM Metoprolol Metoprolol No 1{table QD Metoprolol Succinate Succinate t} Succinate ER 50 MG ER 50 MG ER 50 MG Pravastatin Pravastatin No Pravastati Sodium 10 Sodium 10 n Sodium MG MG 10 MG Levothyroxi Levothyroxi No Levothyrox ne Sodium ne Sodium ine Sodium 75 MCG 75 MCG 75 MCG Vitamin B6 Vitamin B6 No Vitamin B6 Vitamin C Vitamin C No Vitamin C 500 MG 500 MG 500 MG Vitamin E Vitamin E No Vitamin E Metoprolol Metoprolol No Metoprolol Succinate Succinate Succinate ER 50 MG ER 50 MG ER 50 MG Lastacaft Lastacaft No 1{drop_ QD Lastacaft 0.25 % 0.25 % into_af 0.25 % fected_ eye} Ibandronate Ibandronate No Ibandronat Sodium 150 Sodium 150 e Sodium MG MG 150 MG Citalopram Citalopram No Citalopram Hydrobromid Hydrobromid Hydrobromi e 40 MG e 40 MG de 40 MG metFORMIN metFORMIN No metFORMIN HCl ER 500 HCl ER 500 HCl ER 500 MG MG MG metFORMIN metFORMIN No metFORMIN HCl ER 500 HCl ER 500 HCl ER 500 MG MG MG Magnesium Magnesium No Magnesium Pravastatin Pravastatin No Pravastati Sodium 20 Sodium 20 n Sodium MG MG 20 MG traZODone traZODone No traZODone HCl 100 MG HCl 100 MG HCl 100 MG Vitamin D3 Vitamin D3 No Vitamin D3 Losartan Losartan No Losartan Potassium Potassium Potassium 50 MG 50 MG 50 MG traZODone traZODone No 1{table QD traZODone HCl 100 MG HCl 100 MG t_at_be HCl 100 MG dtime} Losartan Losartan No 1{table QD Losartan Potassium Potassium t} Potassium 50 MG 50 MG 50 MG Citalopram Citalopram No 1{table QD Citalopram Hydrobromid Hydrobromid t} Hydrobromi e 40 MG e 40 MG de 40 MG Ibandronate Ibandronate No Ibandronat Sodium 150 Sodium 150 e Sodium MG MG 150 MG NexIUM NexIUM No NexIUM Metoprolol Metoprolol No 1{table QD Metoprolol Succinate Succinate t} Succinate ER 50 MG ER 50 MG ER 50 MG Pravastatin Pravastatin No Pravastati Sodium 10 Sodium 10 n Sodium MG MG 10 MG Levothyroxi Levothyroxi No Levothyrox ne Sodium ne Sodium ine Sodium 75 MCG 75 MCG 75 MCG Vitamin B6 Vitamin B6 No Vitamin B6 Vitamin C Vitamin C No Vitamin C 500 MG 500 MG 500 MG Vitamin E Vitamin E No Vitamin E Metoprolol Metoprolol No Metoprolol Succinate Succinate Succinate ER 50 MG ER 50 MG ER 50 MG Lastacaft Lastacaft No 1{drop_ QD Lastacaft 0.25 % 0.25 % into_af 0.25 % fected_ eye} Ibandronate Ibandronate No Ibandronat Sodium 150 Sodium 150 e Sodium MG MG 150 MG Citalopram Citalopram No Citalopram Hydrobromid Hydrobromid Hydrobromi e 40 MG e 40 MG de 40 MG metFORMIN metFORMIN No metFORMIN HCl ER 500 HCl ER 500 HCl ER 500 MG MG MG metFORMIN metFORMIN No metFORMIN HCl ER 500 HCl ER 500 HCl ER 500 MG MG MG Magnesium Magnesium No Magnesium Pravastatin Pravastatin No Pravastati Sodium 20 Sodium 20 n Sodium MG MG 20 MG traZODone traZODone No traZODone HCl 100 MG HCl 100 MG HCl 100 MG Vitamin D3 Vitamin D3 No Vitamin D3 Losartan Losartan No Losartan Potassium Potassium Potassium 50 MG 50 MG 50 MG traZODone traZODone No 1{table QD traZODone HCl 100 MG HCl 100 MG t_at_be HCl 100 MG dtime} traZODone traZODone No 1{table QD traZODone HCl 100 MG HCl 100 MG t_at_be HCl 100 MG dtime} Citalopram Citalopram No Citalopram Hydrobromid Hydrobromid Hydrobromi e 40 MG e 40 MG de 40 MG Pravastatin Pravastatin No Pravastati Sodium 20 Sodium 20 n Sodium MG MG 20 MG Magnesium Magnesium No Magnesium Levothyroxi Levothyroxi No Levothyrox ne Sodium ne Sodium ine Sodium 75 MCG 75 MCG 75 MCG Levothyroxi Levothyroxi No Levothyrox ne Sodium ne Sodium ine Sodium 75 MCG 75 MCG 75 MCG Vitamin B6 Vitamin B6 No Vitamin B6 Pravastatin Pravastatin No Pravastati Sodium 10 Sodium 10 n Sodium MG MG 10 MG Citalopram Citalopram No 1{table QD Citalopram Hydrobromid Hydrobromid t} Hydrobromi e 40 MG e 40 MG de 40 MG Vitamin E Vitamin E No Vitamin E Vitamin D3 Vitamin D3 No Vitamin D3 Losartan Losartan No Losartan Potassium Potassium Potassium 50 MG 50 MG 50 MG Lastacaft Lastacaft No 1{drop_ QD Lastacaft 0.25 % 0.25 % into_af 0.25 % fected_ eye} Pravastatin Pravastatin No Pravastati Sodium 20 Sodium 20 n Sodium MG MG 20 MG Ibandronate Ibandronate No Ibandronat Sodium 150 Sodium 150 e Sodium MG MG 150 MG traZODone traZODone No traZODone HCl 100 MG HCl 100 MG HCl 100 MG Ibandronate Ibandronate No Ibandronat Sodium 150 Sodium 150 e Sodium MG MG 150 MG Metoprolol Metoprolol No Metoprolol Succinate Succinate Succinate ER 50 MG ER 50 MG ER 50 MG NexIUM NexIUM No NexIUM Losartan Losartan No 1{table QD Losartan Potassium Potassium t} Potassium 50 MG 50 MG 50 MG metFORMIN metFORMIN No metFORMIN HCl ER 500 HCl ER 500 HCl ER 500 MG MG MG Metoprolol Metoprolol No 1{table QD Metoprolol Succinate Succinate t} Succinate ER 50 MG ER 50 MG ER 50 MG Vitamin C Vitamin C No Vitamin C 500 MG 500 MG 500 MG traZODone traZODone No 1{table QD traZODone HCl 100 MG HCl 100 MG t_at_be HCl 100 MG dtime} Citalopram Citalopram No Citalopram Hydrobromid Hydrobromid Hydrobromi e 40 MG e 40 MG de 40 MG Pravastatin Pravastatin No Pravastati Sodium 20 Sodium 20 n Sodium MG MG 20 MG Magnesium Magnesium No Magnesium Levothyroxi Levothyroxi No Levothyrox ne Sodium ne Sodium ine Sodium 75 MCG 75 MCG 75 MCG Levothyroxi Levothyroxi No Levothyrox ne Sodium ne Sodium ine Sodium 75 MCG 75 MCG 75 MCG Vitamin B6 Vitamin B6 No Vitamin B6 Pravastatin Pravastatin No Pravastati Sodium 10 Sodium 10 n Sodium MG MG 10 MG Citalopram Citalopram No 1{table QD Citalopram Hydrobromid Hydrobromid t} Hydrobromi e 40 MG e 40 MG de 40 MG Vitamin E Vitamin E No Vitamin E Vitamin D3 Vitamin D3 No Vitamin D3 Losartan Losartan No Losartan Potassium Potassium Potassium 50 MG 50 MG 50 MG Lastacaft Lastacaft No 1{drop_ QD Lastacaft 0.25 % 0.25 % into_af 0.25 % fected_ eye} Pravastatin Pravastatin No Pravastati Sodium 20 Sodium 20 n Sodium MG MG 20 MG Ibandronate Ibandronate No Ibandronat Sodium 150 Sodium 150 e Sodium MG MG 150 MG traZODone traZODone No traZODone HCl 100 MG HCl 100 MG HCl 100 MG Ibandronate Ibandronate No Ibandronat Sodium 150 Sodium 150 e Sodium MG MG 150 MG Metoprolol Metoprolol No Metoprolol Succinate Succinate Succinate ER 50 MG ER 50 MG ER 50 MG NexIUM NexIUM No NexIUM Losartan Losartan No 1{table QD Losartan Potassium Potassium t} Potassium 50 MG 50 MG 50 MG metFORMIN metFORMIN No metFORMIN HCl ER 500 HCl ER 500 HCl ER 500 MG MG MG Metoprolol Metoprolol No 1{table QD Metoprolol Succinate Succinate t} Succinate ER 50 MG ER 50 MG ER 50 MG Vitamin C Vitamin C No Vitamin C 500 MG 500 MG 500 MG Pravastatin Pravastatin No Pravastati Sodium 20 Sodium 20 n Sodium MG MG 20 MG Vitamin D3 Vitamin D3 No Vitamin D3 traZODone traZODone No traZODone HCl 100 MG HCl 100 MG HCl 100 MG Ibandronate Ibandronate No Ibandronat Sodium 150 Sodium 150 e Sodium MG MG 150 MG Vitamin C Vitamin C No Vitamin C 500 MG 500 MG 500 MG Furosemide Furosemide No 1{table QD Furosemide 40 MG 40 MG t} 40 MG Farxiga 5 Farxiga 5 No Farxiga 5 MG MG MG Losartan Losartan No 1{table QD Losartan Potassium Potassium t} Potassium 50 MG 50 MG 50 MG Pravastatin Pravastatin No Pravastati Sodium 10 Sodium 10 n Sodium MG MG 10 MG Magnesium Magnesium No Magnesium metFORMIN metFORMIN No metFORMIN HCl ER 500 HCl ER 500 HCl ER 500 MG MG MG Lastacaft Lastacaft No 1{drop_ QD Lastacaft 0.25 % 0.25 % into_af 0.25 % fected_ eye} Breo Breo No 1{puff} QD Breo Ellipta Ellipta Ellipta 200-25 200-25 200-25 MCG/INH MCG/INH MCG/INH Levothyroxi Levothyroxi No Levothyrox ne Sodium ne Sodium ine Sodium 75 MCG 75 MCG 75 MCG Citalopram Citalopram No Citalopram Hydrobromid Hydrobromid Hydrobromi e 40 MG e 40 MG de 40 MG NexIUM NexIUM No NexIUM Ibandronate Ibandronate No Ibandronat Sodium 150 Sodium 150 e Sodium MG MG 150 MG Metoprolol Metoprolol No Metoprolol Succinate Succinate Succinate ER 50 MG ER 50 MG ER 50 MG Losartan Losartan No Losartan Potassium Potassium Potassium 50 MG 50 MG 50 MG Vitamin B6 Vitamin B6 No Vitamin B6 Vitamin E Vitamin E No Vitamin E traZODone traZODone No traZODone HCl 100 MG HCl 100 MG HCl 100 MG Ibandronate Ibandronate No Ibandronat Sodium 150 Sodium 150 e Sodium MG MG 150 MG metFORMIN metFORMIN No metFORMIN HCl ER 500 HCl ER 500 HCl ER 500 MG MG MG Magnesium Magnesium No Magnesium Levothyroxi Levothyroxi No Levothyrox ne Sodium ne Sodium ine Sodium 75 MCG 75 MCG 75 MCG Vitamin B6 Vitamin B6 No Vitamin B6 Metoprolol Metoprolol No Metoprolol Succinate Succinate Succinate ER 50 MG ER 50 MG ER 50 MG Vitamin C Vitamin C No Vitamin C 500 MG 500 MG 500 MG Vitamin D3 Vitamin D3 No Vitamin D3 Citalopram Citalopram No Citalopram Hydrobromid Hydrobromid Hydrobromi e 40 MG e 40 MG de 40 MG Vitamin E Vitamin E No Vitamin E NexIUM NexIUM No NexIUM Losartan Losartan No Losartan Potassium Potassium Potassium 50 MG 50 MG 50 MG Breo Breo No 1{puff} QD Breo Ellipta Ellipta Ellipta 200-25 200-25 200-25 MCG/INH MCG/INH MCG/INH Levothyroxi Levothyroxi No Levothyrox ne Sodium ne Sodium ine Sodium 75 MCG 75 MCG 75 MCG Pravastatin Pravastatin No Pravastati Sodium 20 Sodium 20 n Sodium MG MG 20 MG Lastacaft Lastacaft No 1{drop_ QD Lastacaft 0.25 % 0.25 % into_af 0.25 % fected_ eye} Ibandronate Ibandronate No Ibandronat Sodium 150 Sodium 150 e Sodium MG MG 150 MG Pravastatin Pravastatin No Pravastati Sodium 10 Sodium 10 n Sodium MG MG 10 MG metFORMIN metFORMIN No metFORMIN HCl ER 500 HCl ER 500 HCl ER 500 MG MG MG Spironolact Spironolact No 1{table Spironolac one 25 MG one 25 MG t} tone 25 MG Pravastatin Pravastatin No Pravastati Sodium 20 Sodium 20 n Sodium MG MG 20 MG Furosemide Furosemide No 1{table QD Furosemide 40 MG 40 MG t} 40 MG Losartan Losartan No 1{table QD Losartan Potassium Potassium t} Potassium 50 MG 50 MG 50 MG Metoprolol Metoprolol No 1{table QD Metoprolol Succinate Succinate t} Succinate ER 50 MG ER 50 MG ER 50 MG Citalopram Citalopram No 1{table QD Citalopram Hydrobromid Hydrobromid t} Hydrobromi e 40 MG e 40 MG de 40 MG traZODone traZODone No 1{table QD traZODone HCl 100 MG HCl 100 MG t_at_be HCl 100 MG dtime} traZODone traZODone No traZODone HCl 100 MG HCl 100 MG HCl 100 MG Ibandronate Ibandronate No Ibandronat Sodium 150 Sodium 150 e Sodium MG MG 150 MG metFORMIN metFORMIN No metFORMIN HCl ER 500 HCl ER 500 HCl ER 500 MG MG MG Magnesium Magnesium No Magnesium Levothyroxi Levothyroxi No Levothyrox ne Sodium ne Sodium ine Sodium 75 MCG 75 MCG 75 MCG Vitamin B6 Vitamin B6 No Vitamin B6 Metoprolol Metoprolol No Metoprolol Succinate Succinate Succinate ER 50 MG ER 50 MG ER 50 MG Vitamin C Vitamin C No Vitamin C 500 MG 500 MG 500 MG Vitamin D3 Vitamin D3 No Vitamin D3 Citalopram Citalopram No Citalopram Hydrobromid Hydrobromid Hydrobromi e 40 MG e 40 MG de 40 MG Vitamin E Vitamin E No Vitamin E NexIUM NexIUM No NexIUM Losartan Losartan No Losartan Potassium Potassium Potassium 50 MG 50 MG 50 MG Breo Breo No 1{puff} QD Breo Ellipta Ellipta Ellipta 200-25 200-25 200-25 MCG/INH MCG/INH MCG/INH Levothyroxi Levothyroxi No Levothyrox ne Sodium ne Sodium ine Sodium 75 MCG 75 MCG 75 MCG Pravastatin Pravastatin No Pravastati Sodium 20 Sodium 20 n Sodium MG MG 20 MG Lastacaft Lastacaft No 1{drop_ QD Lastacaft 0.25 % 0.25 % into_af 0.25 % fected_ eye} Ibandronate Ibandronate No Ibandronat Sodium 150 Sodium 150 e Sodium MG MG 150 MG Pravastatin Pravastatin No Pravastati Sodium 10 Sodium 10 n Sodium MG MG 10 MG metFORMIN metFORMIN No metFORMIN HCl ER 500 HCl ER 500 HCl ER 500 MG MG MG Spironolact Spironolact No 1{table Spironolac one 25 MG one 25 MG t} tone 25 MG Pravastatin Pravastatin No Pravastati Sodium 20 Sodium 20 n Sodium MG MG 20 MG Furosemide Furosemide No 1{table QD Furosemide 40 MG 40 MG t} 40 MG Losartan Losartan No 1{table QD Losartan Potassium Potassium t} Potassium 50 MG 50 MG 50 MG Metoprolol Metoprolol No 1{table QD Metoprolol Succinate Succinate t} Succinate ER 50 MG ER 50 MG ER 50 MG Citalopram Citalopram No 1{table QD Citalopram Hydrobromid Hydrobromid t} Hydrobromi e 40 MG e 40 MG de 40 MG traZODone traZODone No 1{table QD traZODone HCl 100 MG HCl 100 MG t_at_be HCl 100 MG dtime} Vitamin C Vitamin C No Vitamin C 500 MG 500 MG 500 MG Pravastatin Pravastatin No Pravastati Sodium 20 Sodium 20 n Sodium MG MG 20 MG Spironolact Spironolact No 1{table Spironolac one 25 MG one 25 MG t} tone 25 MG Levothyroxi Levothyroxi No Levothyrox ne Sodium ne Sodium ine Sodium 75 MCG 75 MCG 75 MCG NexIUM NexIUM No NexIUM Vitamin B6 Vitamin B6 No Vitamin B6 Citalopram Citalopram No Citalopram Hydrobromid Hydrobromid Hydrobromi e 40 MG e 40 MG de 40 MG Lastacaft Lastacaft No 1{drop_ QD Lastacaft 0.25 % 0.25 % into_af 0.25 % fected_ eye} Vitamin E Vitamin E No Vitamin E Losartan Losartan No Losartan Potassium Potassium Potassium 50 MG 50 MG 50 MG traZODone traZODone No traZODone HCl 100 MG HCl 100 MG HCl 100 MG Furosemide Furosemide No 1{table QD Furosemide 40 MG 40 MG t} 40 MG Metoprolol Metoprolol No 1{table QD Metoprolol Succinate Succinate t} Succinate ER 50 MG ER 50 MG ER 50 MG Ibandronate Ibandronate No Ibandronat Sodium 150 Sodium 150 e Sodium MG MG 150 MG Vitamin D3 Vitamin D3 No Vitamin D3 Losartan Losartan No 1{table QD Losartan Potassium Potassium t} Potassium 50 MG 50 MG 50 MG Ibandronate Ibandronate No Ibandronat Sodium 150 Sodium 150 e Sodium MG MG 150 MG Breo Breo No 1{puff} QD Breo Ellipta Ellipta Ellipta 200-25 200-25 200-25 MCG/INH MCG/INH MCG/INH metFORMIN metFORMIN No metFORMIN HCl ER 500 HCl ER 500 HCl ER 500 MG MG MG metFORMIN metFORMIN No metFORMIN HCl ER 500 HCl ER 500 HCl ER 500 MG MG MG Pravastatin Pravastatin No Pravastati Sodium 20 Sodium 20 n Sodium MG MG 20 MG Metoprolol Metoprolol No Metoprolol Succinate Succinate Succinate ER 50 MG ER 50 MG ER 50 MG Pravastatin Pravastatin No Pravastati Sodium 10 Sodium 10 n Sodium MG MG 10 MG Magnesium Magnesium No Magnesium Vitamin C Vitamin C No Vitamin C 500 MG 500 MG 500 MG Pravastatin Pravastatin No Pravastati Sodium 20 Sodium 20 n Sodium MG MG 20 MG Spironolact Spironolact No 1{table Spironolac one 25 MG one 25 MG t} tone 25 MG Levothyroxi Levothyroxi No Levothyrox ne Sodium ne Sodium ine Sodium 75 MCG 75 MCG 75 MCG NexIUM NexIUM No NexIUM Vitamin B6 Vitamin B6 No Vitamin B6 Citalopram Citalopram No Citalopram Hydrobromid Hydrobromid Hydrobromi e 40 MG e 40 MG de 40 MG Lastacaft Lastacaft No 1{drop_ QD Lastacaft 0.25 % 0.25 % into_af 0.25 % fected_ eye} Vitamin E Vitamin E No Vitamin E Losartan Losartan No Losartan Potassium Potassium Potassium 50 MG 50 MG 50 MG traZODone traZODone No traZODone HCl 100 MG HCl 100 MG HCl 100 MG Furosemide Furosemide No 1{table QD Furosemide 40 MG 40 MG t} 40 MG Metoprolol Metoprolol No 1{table QD Metoprolol Succinate Succinate t} Succinate ER 50 MG ER 50 MG ER 50 MG Ibandronate Ibandronate No Ibandronat Sodium 150 Sodium 150 e Sodium MG MG 150 MG Vitamin D3 Vitamin D3 No Vitamin D3 Losartan Losartan No 1{table QD Losartan Potassium Potassium t} Potassium 50 MG 50 MG 50 MG Ibandronate Ibandronate No Ibandronat Sodium 150 Sodium 150 e Sodium MG MG 150 MG Breo Breo No 1{puff} QD Breo Ellipta Ellipta Ellipta 200-25 200-25 200-25 MCG/INH MCG/INH MCG/INH metFORMIN metFORMIN No metFORMIN HCl ER 500 HCl ER 500 HCl ER 500 MG MG MG metFORMIN metFORMIN No metFORMIN HCl ER 500 HCl ER 500 HCl ER 500 MG MG MG Pravastatin Pravastatin No Pravastati Sodium 20 Sodium 20 n Sodium MG MG 20 MG Metoprolol Metoprolol No Metoprolol Succinate Succinate Succinate ER 50 MG ER 50 MG ER 50 MG Pravastatin Pravastatin No Pravastati Sodium 10 Sodium 10 n Sodium MG MG 10 MG Magnesium Magnesium No Magnesium metFORMIN metFORMIN No metFORMIN HCl ER 500 HCl ER 500 HCl ER 500 MG MG MG Citalopram Citalopram No Citalopram Hydrobromid Hydrobromid Hydrobromi e 40 MG e 40 MG de 40 MG Lastacaft Lastacaft No 1{drop_ QD Lastacaft 0.25 % 0.25 % into_af 0.25 % fected_ eye} Vitamin D3 Vitamin D3 No Vitamin D3 Metoprolol Metoprolol No 1{table QD Metoprolol Succinate Succinate t} Succinate ER 50 MG ER 50 MG ER 50 MG traZODone traZODone No traZODone HCl 100 MG HCl 100 MG HCl 100 MG Losartan Losartan No 1{table QD Losartan Potassium Potassium t} Potassium 50 MG 50 MG 50 MG Spironolact Spironolact No 1{table Spironolac one 25 MG one 25 MG t} tone 25 MG Losartan Losartan No Losartan Potassium Potassium Potassium 50 MG 50 MG 50 MG Breo Breo No 1{puff} QD Breo Ellipta Ellipta Ellipta 200-25 200-25 200-25 MCG/INH MCG/INH MCG/INH Pravastatin Pravastatin No Pravastati Sodium 10 Sodium 10 n Sodium MG MG 10 MG Magnesium Magnesium No Magnesium Pravastatin Pravastatin No Pravastati Sodium 20 Sodium 20 n Sodium MG MG 20 MG Metoprolol Metoprolol No Metoprolol Succinate Succinate Succinate ER 50 MG ER 50 MG ER 50 MG NexIUM NexIUM No NexIUM Vitamin E Vitamin E No Vitamin E Vitamin C Vitamin C No Vitamin C 500 MG 500 MG 500 MG Vitamin B6 Vitamin B6 No Vitamin B6 Ibandronate Ibandronate No Ibandronat Sodium 150 Sodium 150 e Sodium MG MG 150 MG Levothyroxi Levothyroxi No Levothyrox ne Sodium ne Sodium ine Sodium 75 MCG 75 MCG 75 MCG Furosemide Furosemide No 1{table QD Furosemide 40 MG 40 MG t} 40 MG metFORMIN metFORMIN No metFORMIN HCl ER 500 HCl ER 500 HCl ER 500 MG MG MG Ibandronate Ibandronate No Ibandronat Sodium 150 Sodium 150 e Sodium MG MG 150 MG metFORMIN metFORMIN No metFORMIN HCl ER 500 HCl ER 500 HCl ER 500 MG MG MG Citalopram Citalopram No Citalopram Hydrobromid Hydrobromid Hydrobromi e 40 MG e 40 MG de 40 MG Lastacaft Lastacaft No 1{drop_ QD Lastacaft 0.25 % 0.25 % into_af 0.25 % fected_ eye} Vitamin D3 Vitamin D3 No Vitamin D3 Metoprolol Metoprolol No 1{table QD Metoprolol Succinate Succinate t} Succinate ER 50 MG ER 50 MG ER 50 MG traZODone traZODone No traZODone HCl 100 MG HCl 100 MG HCl 100 MG Losartan Losartan No 1{table QD Losartan Potassium Potassium t} Potassium 50 MG 50 MG 50 MG Spironolact Spironolact No 1{table Spironolac one 25 MG one 25 MG t} tone 25 MG Losartan Losartan No Losartan Potassium Potassium Potassium 50 MG 50 MG 50 MG Breo Breo No 1{puff} QD Breo Ellipta Ellipta Ellipta 200-25 200-25 200-25 MCG/INH MCG/INH MCG/INH Pravastatin Pravastatin No Pravastati Sodium 10 Sodium 10 n Sodium MG MG 10 MG Magnesium Magnesium No Magnesium Pravastatin Pravastatin No Pravastati Sodium 20 Sodium 20 n Sodium MG MG 20 MG Metoprolol Metoprolol No Metoprolol Succinate Succinate Succinate ER 50 MG ER 50 MG ER 50 MG NexIUM NexIUM No NexIUM Vitamin E Vitamin E No Vitamin E Vitamin C Vitamin C No Vitamin C 500 MG 500 MG 500 MG Vitamin B6 Vitamin B6 No Vitamin B6 Ibandronate Ibandronate No Ibandronat Sodium 150 Sodium 150 e Sodium MG MG 150 MG Levothyroxi Levothyroxi No Levothyrox ne Sodium ne Sodium ine Sodium 75 MCG 75 MCG 75 MCG Furosemide Furosemide No 1{table QD Furosemide 40 MG 40 MG t} 40 MG metFORMIN metFORMIN No metFORMIN HCl ER 500 HCl ER 500 HCl ER 500 MG MG MG Ibandronate Ibandronate No Ibandronat Sodium 150 Sodium 150 e Sodium MG MG 150 MG Spironolact Spironolact No 1{table Spironolac one 25 MG one 25 MG t} tone 25 MG traZODone traZODone No 1{table QD traZODone HCl 100 MG HCl 100 MG t_at_be HCl 100 MG dtime} Breo Breo No 1{puff} QD Breo Ellipta Ellipta Ellipta 200-25 200-25 200-25 MCG/INH MCG/INH MCG/INH Farxiga 5 Farxiga 5 No Farxiga 5 MG MG MG Metoprolol Metoprolol No 1{table QD Metoprolol Succinate Succinate t} Succinate ER 50 MG ER 50 MG ER 50 MG Losartan Losartan No Losartan Potassium Potassium Potassium 50 MG 50 MG 50 MG Magnesium Magnesium No Magnesium Citalopram Citalopram No 1{table QD Citalopram Hydrobromid Hydrobromid t} Hydrobromi e 40 MG e 40 MG de 40 MG Pravastatin Pravastatin No Pravastati Sodium 10 Sodium 10 n Sodium MG MG 10 MG Ibandronate Ibandronate No Ibandronat Sodium 150 Sodium 150 e Sodium MG MG 150 MG metFORMIN metFORMIN No metFORMIN HCl ER 500 HCl ER 500 HCl ER 500 MG MG MG Lastacaft Lastacaft No 1{drop_ QD Lastacaft 0.25 % 0.25 % into_af 0.25 % fected_ eye} Levothyroxi Levothyroxi No Levothyrox ne Sodium ne Sodium ine Sodium 75 MCG 75 MCG 75 MCG metFORMIN metFORMIN No metFORMIN HCl ER 500 HCl ER 500 HCl ER 500 MG MG MG Vitamin B6 Vitamin B6 No Vitamin B6 Pravastatin Pravastatin No Pravastati Sodium 20 Sodium 20 n Sodium MG MG 20 MG Ibandronate Ibandronate No Ibandronat Sodium 150 Sodium 150 e Sodium MG MG 150 MG Furosemide Furosemide No 1{table QD Furosemide 40 MG 40 MG t} 40 MG Vitamin C Vitamin C No Vitamin C 500 MG 500 MG 500 MG Levothyroxi Levothyroxi No Levothyrox ne Sodium ne Sodium ine Sodium 75 MCG 75 MCG 75 MCG Pravastatin Pravastatin No Pravastati Sodium 20 Sodium 20 n Sodium MG MG 20 MG NexIUM NexIUM No NexIUM Vitamin D3 Vitamin D3 No Vitamin D3 traZODone traZODone No traZODone HCl 100 MG HCl 100 MG HCl 100 MG Vitamin E Vitamin E No Vitamin E Citalopram Citalopram No Citalopram Hydrobromid Hydrobromid Hydrobromi e 40 MG e 40 MG de 40 MG Spironolact Spironolact No 1{table Spironolac one 25 MG one 25 MG t} tone 25 MG traZODone traZODone No 1{table QD traZODone HCl 100 MG HCl 100 MG t_at_be HCl 100 MG dtime} Breo Breo No 1{puff} QD Breo Ellipta Ellipta Ellipta 200-25 200-25 200-25 MCG/INH MCG/INH MCG/INH Farxiga 5 Farxiga 5 No Farxiga 5 MG MG MG Metoprolol Metoprolol No 1{table QD Metoprolol Succinate Succinate t} Succinate ER 50 MG ER 50 MG ER 50 MG Losartan Losartan No Losartan Potassium Potassium Potassium 50 MG 50 MG 50 MG Magnesium Magnesium No Magnesium Citalopram Citalopram No 1{table QD Citalopram Hydrobromid Hydrobromid t} Hydrobromi e 40 MG e 40 MG de 40 MG Pravastatin Pravastatin No Pravastati Sodium 10 Sodium 10 n Sodium MG MG 10 MG Ibandronate Ibandronate No Ibandronat Sodium 150 Sodium 150 e Sodium MG MG 150 MG metFORMIN metFORMIN No metFORMIN HCl ER 500 HCl ER 500 HCl ER 500 MG MG MG Lastacaft Lastacaft No 1{drop_ QD Lastacaft 0.25 % 0.25 % into_af 0.25 % fected_ eye} Levothyroxi Levothyroxi No Levothyrox ne Sodium ne Sodium ine Sodium 75 MCG 75 MCG 75 MCG metFORMIN metFORMIN No metFORMIN HCl ER 500 HCl ER 500 HCl ER 500 MG MG MG Vitamin B6 Vitamin B6 No Vitamin B6 Pravastatin Pravastatin No Pravastati Sodium 20 Sodium 20 n Sodium MG MG 20 MG Ibandronate Ibandronate No Ibandronat Sodium 150 Sodium 150 e Sodium MG MG 150 MG Furosemide Furosemide No 1{table QD Furosemide 40 MG 40 MG t} 40 MG Vitamin C Vitamin C No Vitamin C 500 MG 500 MG 500 MG Levothyroxi Levothyroxi No Levothyrox ne Sodium ne Sodium ine Sodium 75 MCG 75 MCG 75 MCG Pravastatin Pravastatin No Pravastati Sodium 20 Sodium 20 n Sodium MG MG 20 MG NexIUM NexIUM No NexIUM Vitamin D3 Vitamin D3 No Vitamin D3 traZODone traZODone No traZODone HCl 100 MG HCl 100 MG HCl 100 MG Vitamin E Vitamin E No Vitamin E Citalopram Citalopram No Citalopram Hydrobromid Hydrobromid Hydrobromi e 40 MG e 40 MG de 40 MG Spironolact Spironolact No 1{table Spironolac one 25 MG one 25 MG t} tone 25 MG traZODone traZODone No 1{table QD traZODone HCl 100 MG HCl 100 MG t_at_be HCl 100 MG dtime} Breo Breo No 1{puff} QD Breo Ellipta Ellipta Ellipta 200-25 200-25 200-25 MCG/INH MCG/INH MCG/INH Farxiga 5 Farxiga 5 No Farxiga 5 MG MG MG Metoprolol Metoprolol No 1{table QD Metoprolol Succinate Succinate t} Succinate ER 50 MG ER 50 MG ER 50 MG Losartan Losartan No Losartan Potassium Potassium Potassium 50 MG 50 MG 50 MG Magnesium Magnesium No Magnesium Citalopram Citalopram No 1{table QD Citalopram Hydrobromid Hydrobromid t} Hydrobromi e 40 MG e 40 MG de 40 MG Pravastatin Pravastatin No Pravastati Sodium 10 Sodium 10 n Sodium MG MG 10 MG Ibandronate Ibandronate No Ibandronat Sodium 150 Sodium 150 e Sodium MG MG 150 MG metFORMIN metFORMIN No metFORMIN HCl ER 500 HCl ER 500 HCl ER 500 MG MG MG Lastacaft Lastacaft No 1{drop_ QD Lastacaft 0.25 % 0.25 % into_af 0.25 % fected_ eye} Levothyroxi Levothyroxi No Levothyrox ne Sodium ne Sodium ine Sodium 75 MCG 75 MCG 75 MCG metFORMIN metFORMIN No metFORMIN HCl ER 500 HCl ER 500 HCl ER 500 MG MG MG Vitamin B6 Vitamin B6 No Vitamin B6 Pravastatin Pravastatin No Pravastati Sodium 20 Sodium 20 n Sodium MG MG 20 MG Ibandronate Ibandronate No Ibandronat Sodium 150 Sodium 150 e Sodium MG MG 150 MG traZODone traZODone No traZODone HCl 100 MG HCl 100 MG HCl 100 MG Furosemide Furosemide No 1{table QD Furosemide 40 MG 40 MG t} 40 MG Vitamin C Vitamin C No Vitamin C 500 MG 500 MG 500 MG Levothyroxi Levothyroxi No Levothyrox ne Sodium ne Sodium ine Sodium 75 MCG 75 MCG 75 MCG Pravastatin Pravastatin No Pravastati Sodium 20 Sodium 20 n Sodium MG MG 20 MG NexIUM NexIUM No NexIUM Vitamin D3 Vitamin D3 No Vitamin D3 traZODone traZODone No traZODone HCl 100 MG HCl 100 MG HCl 100 MG Vitamin E Vitamin E No Vitamin E Citalopram Citalopram No Citalopram Hydrobromid Hydrobromid Hydrobromi e 40 MG e 40 MG de 40 MG Ibandronate Ibandronate No Ibandronat Sodium 150 Sodium 150 e Sodium MG MG 150 MG metFORMIN metFORMIN No metFORMIN HCl ER 500 HCl ER 500 HCl ER 500 MG MG MG Vitamin C Vitamin C No Vitamin C 500 MG 500 MG 500 MG Pravastatin Pravastatin No Pravastati Sodium 10 Sodium 10 n Sodium MG MG 10 MG Losartan Losartan No Losartan Potassium Potassium Potassium 50 MG 50 MG 50 MG Vitamin E Vitamin E No Vitamin E Lastacaft Lastacaft No 1{drop_ QD Lastacaft 0.25 % 0.25 % into_af 0.25 % fected_ eye} metFORMIN metFORMIN No metFORMIN HCl ER 500 HCl ER 500 HCl ER 500 MG MG MG Pravastatin Pravastatin No Pravastati Sodium 10 Sodium 10 n Sodium MG MG 10 MG Metoprolol Metoprolol No Metoprolol Succinate Succinate Succinate ER 50 MG ER 50 MG ER 50 MG Ibandronate Ibandronate No Ibandronat Sodium 150 Sodium 150 e Sodium MG MG 150 MG Citalopram Citalopram No 1{table QD Citalopram Hydrobromid Hydrobromid t} Hydrobromi e 10 MG e 10 MG de 10 MG Levothyroxi Levothyroxi No Levothyrox ne Sodium ne Sodium ine Sodium 50 MCG 50 MCG 50 MCG Vitamin D3 Vitamin D3 No Vitamin D3 Vitamin B6 Vitamin B6 No Vitamin B6 Magnesium Magnesium No Magnesium Losartan Losartan No 1{table QD Losartan Potassium Potassium t} Potassium 50 MG 50 MG 50 MG NexIUM NexIUM No NexIUM Farxiga 5 Farxiga 5 2021- No Farxiga 5 MG MG 11-07 MG 00:00 :00 Farxiga 5 Farxiga 5 2021- No Farxiga 5 MG MG 11-07 MG 00:00 :00 Farxiga 5 Farxiga 5 2021- No Farxiga 5 MG MG 11-07 MG 00:00 :00 Farxiga 5 Farxiga 5 2021- No Farxiga 5 MG MG 11-07 MG 00:00 :00 Farxiga 5 Farxiga 5 2021- No Farxiga 5 MG MG 11-07 MG 00:00 :00 Farxiga 5 Farxiga 5 2021- No Farxiga 5 MG MG 11-07 MG 00:00 :00 Immunizations Ordered Filled Immunization Date Status Comments [facility] Immunization Name Name Pneumococcal 2019-04-25 Completed [...] Completed [facility] Conjugate, PCV13 00:00:00 [place] [facility]Pre[facility]ar [facility] Vital Signs Vital Name Observation Time Observation Value Comments Source height 2022-07-06 59 [in_i] [facility] - 11:40:00 [facility] weight 2022-07-06 179.4 [lb_av] [facility] [place], [place] - 11:40:00 [facility] temperature 2022-07-06 97.2 [degF] [facility] - 11:40:00 [facility] bmi 2022-07-06 36.23 kg/m2 [facility] [place], [place] - 11:40:00 [facility] oximetry 2022-07-06 98 % [facility] [place], [place] - 11:40:00 [facility] respiratory rate 2022-07-06 18 /min [facility] - 11:40:00 [facility] blood pressure 2022-07-06 138 mm[Hg] [facility] [place], [place] - systolic 11:40:00 [facility] blood pressure 2022-07-06 74 mm[Hg] [facility] [place], [place] - diastolic 11:40:00 [facility] height 2022-05-17 59 [in_i] [facility] - 13:00:00 [facility] weight 2022-05-17 185 [lb_av] [facility] - 13:00:00 [facility] bmi 2022-05-17 37.36 kg/m2 [facility] - 13:00:00 [facility] height 2022-04-25 59 [in_i] [facility] - 16:00:00 [facility] weight 2022-04-25 185.1 [lb_av] [facility] - 16:00:00 [facility] temperature 2022-04-25 97.2 [degF] [facility] - 16:00:00 [facility] bmi 2022-04-25 37.38 kg/m2 [facility] - 16:00:00 [facility] oximetry 2022-04-25 97 % [facility] - 16:00:00 [facility] respiratory rate 2022-04-25 17 /min [facility] - 16:00:00 [facility] blood pressure 2022-04-25 130 mm[Hg] [facility] - systolic 16:00:00 [facility] blood pressure 2022-04-25 63 mm[Hg] [facility] - diastolic 16:00:00 [facility] height 2021-12-28 59 [in_i] [facility] - 10:40:00 [facility] weight 2021-12-28 178.6 [lb_av] [facility] - 10:40:00 [facility] temperature 2021-12-28 97.2 [degF] [facility] - 10:40:00 [facility] bmi 2021-12-28 36.07 kg/m2 [facility] - 10:40:00 [facility] oximetry 2021-12-28 96 % [facility] - 10:40:00 [facility] respiratory rate 2021-12-28 16 /min [facility] - 10:40:00 [facility] blood pressure 2021-12-28 133 mm[Hg] [facility] - systolic 10:40:00 [facility] blood pressure 2021-12-28 63 mm[Hg] [facility] - diastolic 10:40:00 [facility] height 2021-11-29 59 [in_i] [facility] - 10:00:00 [facility] weight 2021-11-29 186.0 [lb_av] [facility] - 10:00:00 [facility] temperature 2021-11-29 97.2 [degF] [facility] - 10:00:00 [facility] bmi 2021-11-29 37.56 kg/m2 [facility] - 10:00:00 [facility] oximetry 2021-11-29 97 % [facility] - 10:00:00 [facility] respiratory rate 2021-11-29 16 /min [facility] - 10:00:00 [facility] blood pressure 2021-11-29 136 mm[Hg] [facility] - systolic 10:00:00 [facility] blood pressure 2021-11-29 72 mm[Hg] [facility] - diastolic 10:00:00 [facility] height 2021-10-26 59 [in_i] [facility] - 13:00:00 [facility] weight 2021-10-26 178.8 [lb_av] [facility] - 13:00:00 [facility] temperature 2021-10-26 97.9 [degF] [facility] - 13:00:00 [facility] bmi 2021-10-26 36.11 kg/m2 [facility] - 13:00:00 [facility] oximetry 2021-10-26 97 % [facility] - 13:00:00 [facility] respiratory rate 2021-10-26 17 /min [facility] - 13:00:00 [facility] blood pressure 2021-10-26 132 mm[Hg] [facility] - systolic 13:00:00 [facility] blood pressure 2021-10-26 76 mm[Hg] [facility] - diastolic 13:00:00 [facility] height 2021-09-28 59 [in_i] [facility] - 13:20:00 [facility] weight 2021-09-28 177.9 [lb_av] [facility] - 13:20:00 [facility] temperature 2021-09-28 97.8 [degF] [facility] - 13:20:00 [facility] bmi 2021-09-28 35.93 kg/m2 [facility] - 13:20:00 [facility] oximetry 2021-09-28 96 % [facility] - 13:20:00 [facility] respiratory rate 2021-09-28 16 /min [facility] - 13:20:00 [facility] blood pressure 2021-09-28 135 mm[Hg] [facility] - systolic 13:20:00 [facility] blood pressure 2021-09-28 72 mm[Hg] [facility] - diastolic 13:20:00 [facility] height 2021-08-29 59 [in_i] [facility] - 13:50:00 [facility] weight 2021-08-29 174.1 [lb_av] [facility] - 13:50:00 [facility] temperature 2021-08-29 97.2 [degF] [facility] - 13:50:00 [facility] bmi 2021-08-29 35.16 kg/m2 [facility] - 13:50:00 [facility] oximetry 2021-08-29 99 % [facility] - 13:50:00 [facility] respiratory rate 2021-08-29 16 /min [facility] - 13:50:00 [facility] blood pressure 2021-08-29 132 mm[Hg] [facility] - systolic 13:50:00 [facility] blood pressure 2021-08-29 72 mm[Hg] [facility] - diastolic 13:50:00 [facility] bmi 2021-04-20 34.03 kg/m2 [facility] - 15:30:00 [facility] oximetry 2021-04-20 97 % [facility] - 15:30:00 [facility] respiratory rate 2021-04-20 17 /min [facility] - 15:30:00 [facility] blood pressure 2021-04-20 138 mm[Hg] [facility] - systolic 15:30:00 [facility] blood pressure 2021-04-20 74 mm[Hg] [facility] - diastolic 15:30:00 [facility] height 2021-04-20 59 [in_i] [facility] - 15:30:00 [facility] weight 2021-04-20 168.5 [lb_av] [facility] - 15:30:00 [facility] temperature 2021-04-20 97.5 [degF] [facility] - 15:30:00 [facility] Systolic blood 2021-03-08 145 mm[Hg] [facility] pressure 20:03:00 [facility] Diastolic blood 2021-03-08 82 mm[Hg] [facility] pressure 20:03:00 [facility] Heart rate 2021-03-08 83 /min [facility] 20:03:00 [facility] Body temperature 2021-03-08 36.06 [place] [facility] 20:03:00 [facility] Body height 2021-03-08 149.9 cm University of 20:03:00 [facility] Body weight 2021-03-08 73.301 kg University of 20:03:00 [facility] BMI 2021-03-08 32.64 kg/m2 [facility] 20:03:00 [facility] Oxygen saturation 2021-03-08 96 /min [facility] Arterial blood 20:03:00 [facility] Pulse oximetry [place] Systolic blood 2021-02-07 131 mm[Hg] [facility] pressure 20:47:00 [facility] Diastolic blood 2021-02-07 61 mm[Hg] [facility] pressure 20:47:00 [facility] Heart rate 2021-02-07 86 /min [facility] 20:47:00 [facility] Body temperature 2021-02-07 36.61 [place] [facility] 20:47:00 [facility] Body height 2021-02-07 149.9 cm University [facility] 20:47:00 [facility] Body weight 2021-02-07 77.111 kg University [facility] 20:47:00 [facility] BMI 2021-02-07 34.34 kg/m2 [facility] 20:47:00 [facility] Systolic blood 2021-02-04 157 mm[Hg] [facility] pressure 22:01:00 [facility] Diastolic blood 2021-02-04 78 mm[Hg] [facility] pressure 22:01:00 [facility] Heart rate 2021-02-04 66 /min [facility] 21:58:00 [facility] Body temperature 2021-02-04 35.67 [place] [facility] 21:58:00 [facility] Respiratory rate 2021-02-04 17 /min [facility] 21:58:00 [facility] Body height 2021-02-04 149.9 cm University [facility] 21:58:00 [facility] Body weight 2021-02-04 75.751 kg University of 21:58:00 [facility] BMI 2021-02-04 33.73 kg/m2 [facility] 21:58:00 [facility] Oxygen saturation 2021-02-04 98 /min [facility] in Arterial blood 21:58:00 [facility] kacey by Pulse oximetry Branch Systolic blood 2021-01-25 162 mm[Hg] [facility] pressure 20:01:00 [facility] Diastolic blood 2021-01-25 54 mm[Hg] [facility] pressure 20:01:00 [facility] Heart rate 2021-01-25 60 /min [facility] 19:53:00 [facility] Respiratory rate 2021-01-25 16 /min [facility] 19:53:00 [facility] Body weight 2021-01-25 76.658 kg University of 19:53:00 [facility] BMI 2021-01-25 34.13 kg/m2 [facility] 19:53:00 [facility] Oxygen saturation 2021-01-25 96 /min [facility] in Arterial blood 19:53:00 [facility] by Pulse oximetry Branch Systolic blood 2020-11-14 139 mm[Hg] [facility] pressure 21:00:00 [facility] Diastolic blood 2020-11-14 55 mm[Hg] [facility] pressure 21:00:00 [facility] Heart rate 2020-11-14 61 /min [facility] 21:00:00 [facility] Respiratory rate 2020-11-14 16 /min [facility] 21:00:00 [facility] Oxygen saturation 2020-11-14 95 /min [facility] in Arterial blood 21:00:00 [facility] by Pulse oximetry Branch Body temperature 2020-11-14 36.72 [place] [facility] 18:42:00 [facility] Body weight 2020-11-14 75.751 kg University of 18:42:00 [facility] BMI 2020-11-14 33.73 kg/m2 [facility] 18:42:00 [facility] Systolic blood 2020-11-09 152 mm[Hg] [facility] pressure 16:31:00 [facility] Diastolic blood 2020-11-09 79 mm[Hg] [facility] pressure 16:31:00 [facility] Heart rate 2020-11-09 65 /min [facility] 16:31:00 [facility] Body temperature 2020-11-09 36.06 [place] [facility] 16:31:00 [facility] Respiratory rate 2020-11-09 18 /min [facility] 16:31:00 [facility] Body height 2020-11-09 149.9 cm University [facility] 16:31:00 [facility] Body weight 2020-11-09 76.204 kg [facility] 16:31:00 [facility] BMI 2020-11-09 33.93 kg/m2 [facility] 16:31:00 [facility] Oxygen saturation 2020-11-09 99 /min [facility] in Arterial blood 16:31:00 [place] [facility] Pulse oximetry [facility] Systolic blood 2020-09-28 131 mm[Hg] [facility] pressure 15:39:00 [facility] Diastolic blood 2020-09-28 67 mm[Hg] [facility] pressure 15:39:00 [facility] Heart rate 2020-09-28 62 /min [facility] 15:39:00 [facility] Body temperature 2020-09-28 36.22 [place] [facility] 15:39:00 [facility] Respiratory rate 2020-09-28 18 /min [facility] 15:39:00 [facility] Body height 2020-09-28 149.9 cm University [facility] 15:39:00 [facility] Body weight 2020-09-28 74.254 kg [facility] 15:39:00 [facility] BMI 2020-09-28 33.06 kg/m2 [facility] 15:39:00 [facility] Oxygen saturation 2020-09-28 99 /min [facility] in Arterial blood 15:39:00 [facility]acey by Pulse oximetry Branch Systolic blood 2020-09-21 136 mm[Hg] [facility] pressure 19:16:00 [facility] Diastolic blood 2020-09-21 63 mm[Hg] [facility] pressure 19:16:00 [facility] Heart rate 2020-09-21 62 /min [facility] 19:16:00 [facility] Body temperature 2020-09-21 36.67 [place] [facility] 19:11:00 [facility] Body height 2020-09-21 149.9 cm [facility] 19:11:00 [facility] Body weight 2020-09-21 74.844 kg University [facility] 19:11:00 [facility] BMI 2020-09-21 33.33 kg/m2 [facility] 19:11:00 [facility] Systolic blood 2020-08-31 142 mm[Hg] [facility] pressure 04:35:10 [facility] Diastolic blood 2020-08-31 55 mm[Hg] [facility] pressure 04:35:10 [facility] Heart rate 2020-08-31 67 /min [facility] 04:35:10 [facility] Body temperature 2020-08-31 37.11 [place] [facility] 04:35:10 [facility] Respiratory rate 2020-08-31 16 /min [facility] 04:35:10 [facility] Oxygen saturation 2020-08-31 96 /min [facility] in Arterial blood 04:35:10 [facility] by Pulse oximetry [place] Body height 2020-08-31 149.9 cm University [facility] 00:44:00 [facility] Body weight 2020-08-31 76.658 kg University of 00:44:00 [facility] BMI 2020-08-31 34.13 kg/m2 [facility] 00:44:00 [facility] Systolic blood 2020-08-23 120 mm[Hg] [facility] pressure 22:47:00 [facility] Diastolic blood 2020-08-23 63 mm[Hg] [facility] pressure 22:47:00 [facility] Heart rate 2020-08-23 62 /min [facility] 22:47:00 [facility] Body temperature 2020-08-23 36.72 [place] [facility] 22:47:00 [facility] Body height 2020-08-23 149.9 cm [facility] 22:47:00 [facility] Body weight 2020-08-23 76.658 kg University [facility] 22:47:00 [facility] BMI 2020-08-23 34.13 kg/m2 [facility] 22:47:00 [facility] Systolic blood 2020-08-11 114 mm[Hg] [facility] pressure 21:20:00 [facility] Diastolic blood 2020-08-11 58 mm[Hg] [facility] pressure 21:20:00 [facility] Heart rate 2020-08-11 64 /min [facility] 21:20:00 [facility] Respiratory rate 2020-08-11 19 /min [facility] 21:20:00 [facility] Body height 2020-08-11 149.9 cm [facility] 21:20:00 [facility] Body weight 2020-08-11 76.204 kg [facility] 21:20:00 [facility] BMI 2020-08-11 33.93 kg/m2 [facility] 21:20:00 [facility] Oxygen saturation 2020-08-11 95 /min [facility] in Arterial blood 21:20:00 [place] [facility] Pulse oximetry [facility] Systolic blood 2020-08-09 124 mm[Hg] [facility] pressure 20:49:00 [facility] Diastolic blood 2020-08-09 60 mm[Hg] [facility] pressure 20:49:00 [facility] Heart rate 2020-08-09 64 /min [facility] 20:49:00 [facility] Respiratory rate 2020-08-09 19 /min [facility] 20:49:00 [facility] Body height 2020-08-09 149.9 cm [facility] 20:49:00 [facility] Body weight 2020-08-09 76.204 kg University of 20:49:00 [facility] BMI 2020-08-09 33.93 kg/m2 [facility] 20:49:00 [facility] Oxygen saturation 2020-08-09 96 /min [facility] in Arterial blood 20:49:00 [facility] by Pulse oximetry Branch Systolic blood 2020-07-09 129 mm[Hg] [facility] pressure 17:01:00 [place] [facility] Diastolic blood 2020-07-09 66 mm[Hg] [facility] pressure 17:01:00 [facility] Heart rate 2020-07-09 61 /min [facility] 17:01:00 [facility] Respiratory rate 2020-07-09 18 /min [facility] 17:01:00 [place] [facility] Body height 2020-07-09 149.9 cm [facility] 17:01:00 [place] [facility] Body weight 2020-07-09 76.204 kg [facility] 17:01:00 [facility] BMI 2020-07-09 33.93 kg/m2 [facility] 17:01:00 [facility] Systolic blood 2020-07-07 132 mm[Hg] [facility] pressure 19:25:00 [facility] Diastolic blood 2020-07-07 73 mm[Hg] [facility] pressure 19:25:00 [facility] Heart rate 2020-07-07 68 /min [facility] 19:25:00 [facility] Respiratory rate 2020-07-07 19 /min [facility] 19:25:00 [facility] Body height 2020-07-07 149.9 cm University [facility] 19:25:00 [facility] Body weight 2020-07-07 74.844 kg University of 19:25:00 [facility] BMI 2020-07-07 33.33 kg/m2 [facility] 19:25:00 [facility] Oxygen saturation 2020-07-07 97 /min [place] [facility] in Arterial blood 19:25:00 [facility] by Pulse oximetry Branch Body height 2020-06-21 149.9 cm University [facility] 20:25:00 [facility] Body weight 2020-06-21 77.111 kg University [facility] 20:25:00 [facility] BMI 2020-06-21 34.34 kg/m2 [facility] 20:25:00 [facility] Systolic blood 2020-06-09 115 mm[Hg] [facility] pressure 19:34:00 [facility] Diastolic blood 2020-06-09 60 mm[Hg] [facility] pressure 19:34:00 [facility] Heart rate 2020-06-09 76 /min [facility] 19:34:00 [facility] Respiratory rate 2020-06-09 19 /min [facility] 19:34:00 [facility] Body height 2020-06-09 149.9 cm [facility] 19:34:00 [facility] Body weight 2020-06-09 75.978 kg [facility] 19:34:00 [facility] BMI 2020-06-09 33.83 kg/m2 [facility] 19:34:00 [facility] Oxygen saturation 2020-06-09 95 /min [facility] in Arterial blood 19:34:00 [facility] by Pulse oximetry Branch Systolic blood 2020-06-07 144 mm[Hg] patient has not [facility] pressure 15:24:00 taken bp [place] [facility] Diastolic blood 2020-06-07 79 mm[Hg] patient has not [facility] pressure 15:24:00 taken bp [place] [facility] Heart rate 2020-06-07 93 /min [facility] 15:24:00 [facility] Body temperature 2020-06-07 36.67 [place] [facility] 15:24:00 [facility] Body height 2020-06-07 149.9 cm [facility] 15:24:00 [facility] Body weight 2020-06-07 76.114 kg [facility] 15:24:00 [facility] BMI 2020-06-07 33.89 kg/m2 [facility] 15:24:00 [facility] Systolic blood 2020-06-03 142 mm[Hg] [facility] pressure 22:00:00 [facility] Diastolic blood 2020-06-03 64 mm[Hg] [facility] pressure 22:00:00 [facility] Heart rate 2020-06-03 80 /min [facility] 22:00:00 [facility] Body temperature 2020-06-03 37.22 [place] [facility] 22:00:00 [facility] Respiratory rate 2020-06-03 15 /min [facility] 22:00:00 [facility] Oxygen saturation 2020-06-03 98 /min [facility] in Arterial blood 22:00:00 [facility] [facility] kacey by Pulse oximetry Branch Body weight 2020-06-03 68.04 kg University of 20:19:00 [facility] BMI 2020-06-03 30.30 kg/m2 University of 20:19:00 [facility] Systolic blood 2020-05-10 129 mm[Hg] University of pressure 19:25:00 [facility] Diastolic blood 2020-05-10 79 mm[Hg] University o f pressure 19:25:00 [facility] Heart rate 2020-05-10 85 /min University of 19:25:00 [facility] Body temperature 2020-05-10 36.33 [place] University of 19:25:00 [facility] Body height 2020-05-10 149.9 cm University of 19:25:00 [facility] Body weight 2020-05-10 75.116 kg University of 19:25:00 [facility] BMI 2020-05-10 33.45 kg/m2 University of 19:25:00 [facility] Oxygen saturation 2020-05-10 97 /min University of in Arterial blood 19:25:00 [facility] kcaey by Pulse oximetry Branch Systolic blood 2020-02-26 134 mm[Hg] University of pressure 19:37:00 [facility] Diastolic blood 2020-02-26 72 mm[Hg] University o f pressure 19:37:00 [facility] Heart rate 2020-02-26 71 /min University of 19:37:00 [facility] Respiratory rate 2020-02-26 19 /min University of 19:37:00 [facility] Body height 2020-02-26 149.9 cm University of 19:37:00 [facility] Body weight 2020-02-26 75.751 kg University of 19:37:00 [facility] BMI 2020-02-26 33.73 kg/m2 University of 19:37:00 [facility] Oxygen saturation 2020-02-26 99 /min University of in Arterial blood 19:37:00 [place] [facility] by Pulse oximetry [facility] Heart rate 2019-12-09 90 /min University of 21:40:00 [place] [facility] Body temperature 2019-12-09 36.56 [place] University of 21:40:00 [facility] Respiratory rate 2019-12-09 18 /min University of :40:00 [facility] Oxygen saturation 2019-12-09 95 /min University of in Arterial blood 21:40:00 [facility] by Pulse oximetry Branch Systolic blood 2019-12-09 122 mm[Hg] University of pressure 17:00:00 [facility] Diastolic blood 2019-12-09 65 mm[Hg] University o f pressure 17:00:00 [facility] Body weight 2019-12-09 74.707 kg University of 05:30:00 [facility] BMI 2019-12-09 33.27 kg/m2 University of 05:30:00 [facility] Body height 2019-12-07 149.9 cm University of 05:30:00 [facility] Respiratory rate 2019-11-15 16 /min University of 02:46:00 [facility] Oxygen saturation 2019-11-15 97 /min [place] of in Arterial blood 02:46:00 [facility] by Pulse oximetry Branch Systolic blood 2019-11-15 159 mm[Hg] University of pressure 02:24:00 [facility] Diastolic blood 2019-11-15 72 mm[Hg] University o f pressure 02:24:00 [facility] Heart rate 2019-11-15 75 /min University of 02:24:00 [facility] Body temperature 2019-11-14 37 [place] University of :50:00 [facility] Body height 2019-11-14 149.9 cm University of :50:00 [facility] Body weight 2019-11-14 74.844 kg University of :50:00 [facility] BMI 2019-11-14 33.33 kg/m2 University of 23:50:00 [facility] Systolic blood 2019-11-09 136 mm[Hg] University of pressure 01:04:00 [place] [facility] Diastolic blood 2019-11-09 61 mm[Hg] University o f pressure 01:04:00 [facility] Heart rate 2019-11-09 80 /min University of 01:03:00 [facility] Body temperature 2019-11-09 36.67 [place] University of 01:03:00 [place] [facility] Respiratory rate 2019-11-09 20 /min University of :03:00 [facility] Body height 2019-11-09 149.9 cm University of 01:03:00 [facility] Body weight 2019-11-09 76.658 kg University of 01:03:00 [facility] BMI 2019-11-09 34.13 kg/m2 University of 01:03:00 [facility] Oxygen saturation 2019-11-09 95 /min University of in Arterial blood 01:03:00 [facility] by Pulse oximetry [place] Systolic blood 2019-10-30 156 mm[Hg] University of pressure 16:21:00 [facility] Diastolic blood 2019-10-30 80 mm[Hg] University o f pressure 16:21:00 [facility] Heart rate 2019-10-30 77 /min University of 15:40:00 [facility] Body temperature 2019-10-30 36.61 [place] University of 15:40:00 [facility] Body height 2019-10-30 149.9 cm University of 15:40:00 [facility] Body weight 2019-10-30 76.204 kg University of 15:40:00 [facility] BMI 2019-10-30 33.93 kg/m2 University of 15:40:00 [facility] Systolic blood 2019-06-05 125 mm[Hg] University of pressure 18:17:00 [facility] Diastolic blood 2019-06-05 75 mm[Hg] University o f pressure 18:17:00 [facility] Heart rate 2019-06-05 80 /min University of 18:17:00 [facility] Body temperature 2019-06-05 36.67 [place] University of 18:17:00 [facility] Respiratory rate 2019-06-05 18 /min University of 18:17:00 [facility] Body height 2019-06-05 149.9 cm University of 18:17:00 [facility] Body weight 2019-06-05 74.844 kg University of 18:17:00 [facility] BMI 2019-06-05 33.33 kg/m2 University of 18:17:00 [facility] Systolic blood 2019-06-02 117 mm[Hg] University of pressure 23:21:00 [facility] Diastolic blood 2019-06-02 68 mm[Hg] University o f pressure 23:21:00 [facility] Heart rate 2019-06-02 64 /min University of 23:21:00 [facility] Body temperature 2019-06-02 36.61 [place] University of 23:21:00 [facility] Respiratory rate 2019-06-02 18 /min University 23:21:00 [facility] Body height 2019-06-[address] [facility] 23:21:00 [facility] Body weight 2019-06-[address] [facility] 23:21:00 [facility] BMI 2019-06-02 33.20 kg/m2 University 23:21:00 [facility] Oxygen saturation 2019-06-02 98 /min [facility] in Arterial blood 23:21:00 [facility] by Pulse oximetry Branch Systolic blood 2019-04-25 125 mm[Hg] University of pressure 18:26:00 [facility] Diastolic blood 2019-04-25 68 mm[Hg] [place] o f pressure 18:26:00 [facility] Heart rate 2019-04-25 71 /min [facility] 18:26:00 [facility] Body temperature 2019-04-25 36.94 [place] University 18:26:00 [facility] Body height 2019-04-[address] [facility] 18:26:00 [facility] Body weight 2019-04-25 75.297 kg University 18:26:00 [facility] BMI 2019-04-25 33.53 kg/m2 University 18:26:00 [facility] Heart rate 2022-02-15 63 /min Jew 20:27:00 [facility] Body height 2022-02-15 149.9 cm Jew 20:27:00 [facility] Body weight 2022-02-15 84.369 kg Jew 20:27:00 [facility] BMI 2022-02-15 37.57 kg/m2 Jew 20:27:00 Hospital Oxygen saturation 2022-02-15 99 /min Jew in Arterial blood 20:27:00 Hospital by Pulse oximetry Respiratory rate 2022-01-11 14 /min Jew 20:38:00 Hospital Height 2021-11-02 149.86 cm Ghazala Swan n 16:40:00 Weight 2021-11-02 [facility] Beny n 16:40:00 BMI Calculated 2021-11-02 [facility] Shashi josefina 16:40:00 Heart Rate 2021-11-02 Ghazala Swan n 16:15:16 Systolic (mm Hg) 2021-11-[address] [facility] rmann 16:14:24 Diastolic (mm Hg) 2021-11-02 [facility] ermann 16:14:24 Heart Rate 2021-11-02 [facility] Beny n 16:14:24 Height 2021-10-28 149.86 cm Ghazala Daniellean n 20:36:00 Weight 2021-10-28 [facility] Beny n 20:36:00 BMI Calculated 2021-10-28 [facility] josefina 20:36:00 Systolic (mm Hg) 2021-02-21 [facility] Brad rmann 20:30:00 Diastolic (mm Hg) 2021-02-21 [facility] ermann 20:30:00 Systolic (mm Hg) 2021-02-[address] [facility] rmann 20:15:00 Diastolic (mm Hg) 2021-02-21 [facility] ermann 20:15:00 Systolic (mm Hg) 2021-02-[address] [facility] rmann 20:00:00 Diastolic (mm Hg) 2021-02-21 [facility] ermann 20:00:00 Respitory Rate 2021-02-21 [facility] josefina 19:45:00 Respitory Rate 2021-02-21 [facility] josefina 19:30:00 Respitory Rate 2021-02-21 [facility] josefina 19:15:00 Height 2021-02-17 149.86 cm [facility] Beny n 19:43:00 Weight 2021-02-17 Ghazala Daniellean n 19:43:00 BMI Calculated 2021-02-17 [facility] josefina 19:43:00 Procedures Procedure Date / Time Performing Clinician Source Performed AUTOMATED VISUAL FIELD, 2022-07-10 21:11:[facility] AUTOMATED VISUAL FIELD, 2022-07-10 21:10:36 [facility] EXTENDED - OS - LEFT EYE AUTHORIZATION FOR RELEASE 2022-06-19 05:01:00 Doctor Unassigned, [facility] PULMONARY FUNCTION TEST 2022-02-15 20:05:39 Christina Lucio [facility] AUTHORIZATION FOR RELEASE 2022-01-13 05:01:00 Doctor Unassigned, [facility] MEDICATION CORRESPONDENCE 2021-04-27 05:01:00 Doctor Marelyssstacy, [facility] Name Medical [place] REFERRAL- REQUEST/RESPONSE 2021-03-07 05:01:00 Doctor Marelyssigned , [facility] Name Medical Branch MEDICATION CORRESPONDENCE 2021-02-09 05:01:00 Doctor Unassigned, [facility] [place] [facility] FERRITIN SERUM 2021-01-26 14:05:00 Jose Fraser [facility] THYROID STIMULATING 2021-01-26 14:05:00 Jose Fraser [facility] HORMONE [facility] COMP. METABOLIC PANEL 2021-01-26 14:05:00 Jose Fraser [facility] ([id number]) Medical Branch LIPID PANEL ([id number])(TOTAL 2021-01-26 14:05:00 Jose Fraser [facility] CHOLESTEROL, [facility] TRIGLYCERIDES, HDL) IRON PANEL 2021-01-26 14:05:00 Jose Fraser [facility] CBC WITHOUT DIFF 2021-01-26 14:05:00 Jose Fraser [facility] GLYCOSYLATED HEMOGLOBIN 2021-01-26 14:05:00 [facility] (A1C) [facility] CT ABDOMEN PELVIS W 2020-11-14 19:55:51 Patricia Shi [facility] CONTRAST [facility] URINALYSIS 2020-11-14 19:30:00 Patricia Shi [facility] COVID-19 (ID NOW RAPID 2020-11-14 19:06:00 Patricia Shi [facility] TESTING) Medical Branch LIPASE 2020-11-14 19:05:00 Patricia Shi [facility] TROPONIN I 2020-11-14 19:05:00 Patricia Shi [facility] HEPATIC FUNCTION PANEL 2020-11-14 19:05:00 Patricia Shi [facility] ([id number]) (ALB,T.PRO,BILI [facility] T,BU/BC,ALT,AST,ALK PHOS) BASIC METABOLIC PANEL (NA, 2020-11-14 19:05:00 Patricia Shi [facility] K, CL, CO2, GLUCOSE, BUN, Medica l Branch CREATININE, CA) CBC WITH DIFF 2020-11-14 19:05:00 Patricia Shi [facility] PROTHROMBIN TIME / INR 2020-11-14 19:05:00 Patricia Shi [facility] ACTIVATED PARTIAL THRMPLAS 2020-11-14 19:05:00 Patricia Shi [facility] Medical [place] NOTICE OF PRIVACY 2020-11-14 18:26:59 Doctor Ger, [facility] PRACTICES [place] [facility] CONSENT/REFUSAL FOR 2020-11-14 18:26:36 Doctor Ger, [facility] DIAGNOSIS AND TREATMENT [place] [facility] [place] EXTERNAL PROVIDER RECORDS 2020-10-08 06:01:00 Doctor Ger, [facility] Medical [place] HOME HEALTH - OTHER 2020-10-06 06:01:00 Doctor Ger [facility] Name Medical [place] ASSIGNMENT OF BENEFITS 2020-10-05 19:31:32 Doctor Ger, [facility] Medical [place] Lap Band removal 2020-09-17 00:00[facility]00 [facility] - Percutaneous 2020-09-17 00:00:00 [facility] coronary intervention CONSENT/REFUSAL FOR 2020-08-31 00:30:55 Doctor Ger, [facility] DIAGNOSIS AND TREATMENT [place] [facility] [place] DEXA AXIAL (HIP AND SPINE) 2020-08-25 20:11:01 Jose Fraser [facility] XR HIPS 2 VW BILATERAL 2020-08-25 19:16:37 Jose Fraser [facility] Medical [place] DME/SUPPLY JUSTIFICATION 2020-08-11 06:01:00 Doctor Cyr [facility] Name Medical [place] SLEEP STUDY DATA REPORT 2020-07-17 05:01:00 Doctor Cyr [facility] Medical Branch COVID-19 (ID NOW RAPID 2020-06-11 19:31:00 Jose Fraser [facility] TESTING) Medical Branch ASSIGNMENT OF BENEFITS 2020-06-11 19:08:54 Doctor [facility], [facility] XR CHEST 1 VW COVID 2020-06-03 21:07:32 Ko Breen [facility] Medical Branch COVID-19 (ID NOW RAPID 2020-06-03 20:56:00 Ko Breen [facility] TESTING) Medical Branch TROPONIN I 2020-06-03 20:47:00 Ko Breen [facility] COMP. METABOLIC PANEL 2020-06-03 20:47:00 Ko Breen [facility] ([id number]) [facility] CBC WITH DIFF 2020-06-03 20:47:00 Ko Breen [facility] PROTHROMBIN TIME / INR 2020-06-03 20:47:00 Ko Breen [facility] N-TERMINAL PRO-BNP 2020-06-03 20:47:00 Ko Breen [facility] EKG-12 LEAD 2020-06-03 20:26:00 Avani Andersno [facility] CONSENT/REFUSAL FOR 2020-06-03 20:08:11 Doctor Unassstacy [facility] DIAGNOSIS AND TREATMENT [facility] INSURANCE CORRESPONDENCE 2020-04-12 05:01:00 Doctor Ger, [facility] REFERRAL- REQUEST/RESPONSE 2020-02-16 05:01:00 Doctor Unassigned , [facility] REFERRAL- REQUEST/RESPONSE 2020-01-12 05:01:00 Doctor Unassstacy , [facility] POCT GLUCOSE (AUTOMATED) 2019-12-09 21:00:00 Kelly Mittal [facility] POCT GLUCOSE (AUTOMATED) 2019-12-09 16:34:00 Kelly Mittal [facility] POCT GLUCOSE (AUTOMATED) 2019-12-09 12:27:00 Kelly Mittal [facility] THYROID STIMULATING 2019-12-09 10:55:00 Kelly Mittal [facility] HORMONE [facility] BASIC METABOLIC PANEL (NA, 2019-12-09 10:55:00 Kelly Mittal [facility] K, CL, CO2, GLUCOSE, BUN, Medica l Branch CREATININE, CA) CBC WITH DIFFERENTIAL 2019-12-09 10:55:00 [facility] ACTIVATED PARTIAL THRMPLAS 2019-12-09 10:55:00 Kelly Mittal [facility] BALAJI [facility] POCT GLUCOSE (AUTOMATED) 2019-12-09 00:20:00 [facility] POCT GLUCOSE (AUTOMATED) 2019-12-08 20:54:00 EdlupeKelly versity of [facility] ACTIVATED PARTIAL THRMPLAS 2019-12-08 18:56:00 [facility] PO[facility] GLUCOSE (AUTOMATED) 2019-12-08 16:42:00 Edlupe Kelly Duran versity of [facility] POCT GLUCOSE (AUTOMATED) 2019-12-08 12:16:00 EdionReji livingstonewelina Duran versity of [facility] CBC WITH DIFFERENTIAL 2019-12-08 06:36:00 DonellionKelly livingstoner sity [facility] ACTIVATED PARTIAL THRMPLAS 2019-12-08 06:36:00 Kelly [facility] PO[facility]SE (AUTOMATED) 2019-12-08 00:53:00 KyrieKelly [facility] ACTIVATED PARTIAL THRMPLAS 2019-12-07 21:53:00 EdionKelly livingston [facility] POCT GLUCOSE (AUTOMATED) 2019-12-07 21:43:00 Edlupe Kelly [facility]INE C[facility]URE 2019-12-07 18:37:00 Migel Vick [facility] POCT GLUCOSE (AUTOMATED) 2019-12-07 16:46:00 Edlupe Kelly [facility] POCT GLUCOSE (AUTOMATED) 2019-12-07 13:15:00 Kyrie Rejiewelina Renee [facility] GLYCOSYLATED HEMOGLOBIN 2019-12-07 10:56:00 [facility] (A1C) [facility] ACTIVATED PARTIAL THRMPLAS 2019-12-07 10:56:00 Kelly Mittal [facility] PROTHROMBIN TIME / INR 2019-12-07 03:44:00 LalygaJesse [facility] ACTIVATED PARTIAL THRMPLAS 2019-12-07 03:44:00 Jesse Gee [facility] LAB ONLY CORONAVIRUS 2019-12-07 03:08:00 Everton Scott [facility] COVID-[address] [facility] [address] CHEST PULMONARY 2019-12-07 03:03:46 Everton Scott [facility] ANGIOGRAM Medical Branch URINALYSIS 2019-12-07 02:34:00 Everton Scott [facility] XR CHEST 2 VW 2019-12-07 02:05:16 Everton Scott [facility] EKG-12 LEAD 2019-12-07 01:50:52 Jesse Gee [facility] LIPASE 2019-12-07 01:49:00 Everton Scott [facility] TROPONIN I 2019-12-07 01:49:00 Everton Scott [facility] HEPATIC FUNCTION PANEL 2019-12-07 01:49:00 Everton Scott [facility] ([id number]) (ALB,T.PRO,BILI Medical Branch T,BU/BC,ALT,AST,ALK PHOS) BASIC METABOLIC PANEL (NA, 2019-12-07 01:49:00 Everton Scott [facility] K, CL, CO2, GLUCOSE, BUN, Medica l Branch CREATININE, CA) CBC WITH DIFFERENTIAL 2019-12-07 01:49:[address] [facility] ADC,CLC OR LCC ONLY - 2019-12-07 01:49:00 Everton Scott [facility] INFLUENZA A & B DIRECT Medical B [place] ANTIGEN EKG-12 LEAD 2019-12-07 01:43:35 Everton Scott [facility] HOSPITAL ADMISSION MISC - 2019-12-06 05:01:00 Doctor Cyr, [facility] MEDICARE PATIENTS RIGHTS [place] [facility] [place] IMPORTANT MESSAGE XR CHEST 2 VW 2019-11-15 00:28:12 Sara Avery [facility] ADC,CLC OR LCC ONLY - 2019-11-14 23:56:00 Sara Avery [facility] INFLUENZA A & B DIRECT [facility] [place] ANTIGEN NOTICE OF PRIVACY 2019-11-14 23:36:55 Doctor Cyr, [facility] PRACTICES [place] [facility] CONSENT/REFUSAL FOR 2019-11-14 23:30:43 Doctor Cyr [facility] DIAGNOSIS AND TREATMENT [place] [facility] AUTHORIZATION FOR RELEASE 2019-11-12 06:01:00 Doctor Ger, [facility] OF PHI [place] [facility] POCT FLU A AND B 2019-11-09 01:11:00 Jeffrey Ko [facility] (MOLECULAR) [facility] THYROID STIMULATING 2019-10-30 16:31:00 Jose Fraser [facility] HORMONE [facility] MICROALBUMIN URINE 2019-10-30 16:31:00 Jose Fraser [facility] COMP. METABOLIC PANEL 2019-10-30 16:31:00 Jose Fraser Un [facility] ([id number]) [facility] LIPID PANEL ([id number])(TOTAL 2019-10-30 16:31:00 Jose Fraser [facility] CHOLESTEROL, [facility] TRIGLYCERIDES, HDL) CBC WITH DIFFERENTIAL 2019-10-30 16:31:00 Jose Fraser Un [facility] GLYCOSYLATED HEMOGLOBIN 2019-10-30 16:31:00 Jose Fraser [facility] (A1C) [facility] DISCLOSURE AND CONSENT, 2019-06-05 05:01:00 Doctor Ger [facility] MEDICAL AND SURGICAL [place] [facility] Bra nch PROCEDURES XR SPINE THORACIC 3 VW 2019-06-03 00:45:31 Selma Staley [facility] XR LUMBAR SPINE 3 VW 2019-06-03 00:45:22 Selma Staley [facility] Medical [place] EXTERNAL PROVIDER RECORDS 2019-05-25 05:01:00 Doctor Ger [facility] [place] [facility] PNEUMOCOCCAL VACCINE, 2019-04-25 19:00:39 Jose Fraser [facility] 23-VALENT (PNEUMOVAX) Medical Br anch NO SHOW OR MISSED 2019-04-25 18:05:48 Doctor Ger [facility] APPOINTMENT POLICY [place] [facility] h ACKNOWLEDGEMENT INSURANCE CORRESPONDENCE 2019-04-16 05:01:00 Doctor Ger, [facility] [place] [facility] Back surgery 2016-09-17 00:00:00 Ghazala [facility] Colonoscopy [facility] Appendectomy [facility] Tubal ligation [facility] Carpal tunnel [facility] release<sup>1</sup> Plan of Care Planned Activity Planned Date Details Comments Source Future Scheduled 2022-07-19 COVID-19 [facility]ACCINE [facility] 09:02:13 (#1) [code = COVID-19 VACCINE (#1)] Future Scheduled 2022-07-19 SHINGLES VACCINES [facility] Test 09:02:13 (1 of 2) [code = SHINGLES VACCINES (1 of 2)] Future Scheduled 2022-07-19 HEPATITIS B [facility] 09:02:13 VACCINES (1 of 3 - Risk 3-dose series) [code = HEPATITIS B VACCINES (1 of 3 - Risk 3-dose series)] Future Scheduled 2022-07-19 INFLUENZA VACCINE [facility] Test 09:02:13 [code = INFLUENZA VACCINE] Future Scheduled 2022-06-19 COVID-19 VACCINE Methodi [facility] Test 09:41:32 (#1) [code = COVID-19 VACCINE (#1)] Future Scheduled 2022-06-19 SHINGLES VACCINES [facility] Test 09:41:32 (1 of 2) [code = SHINGLES VACCINES (1 of 2)] Future Scheduled 2022-06-19 HEPATITIS [facility] Test 09:41:32 VACCINES (1 of 3 - Risk 3-dose series) [code = HEPATITIS B VACCINES (1 of 3 - Risk 3-dose series)] Future Scheduled 2022-06-19 INFLUENZA VACCINE [facility] Test 09:41:32 [code = INFLUENZA VACCINE] Encounters Start End Encounter Admission Attending Care Care Encounter Source Date/Time Date/Time Type Type Clinicians Facility Department ID 2022-05-24 Outpatient Gomez, [facility] [id number] Common 15:31:00 Alber [facility] 2022-05-23 Outpatient Gomez, [facility] [id number] Common 13:30:02 Alber [facility] 2022-05-17 Outpatient Gomez, [facility] [id number] Common 10:01:02 Alber [facility] 2021-12-26 Outpatient Gomez, [facility] [id number] Common 13:29:02 [facility] 2021-12-23 Outpatient Gomez, [facility] [id number] Common 11:37:02 Alber [facility] 2021-11-29 [facility] [id number] Common 10:03:01 Alber [facility] 2021-10-25 Outpatient [facility], [facility] [id number] Common 13:49:01 Alber [facility] 2021-10-12 Out[facility], [facility] [id number] Common 14:23:26 Alber [id number] [facility] 2021-10-12 Outpatient [facility], [facility] [id number] Common 14:17:00 Alber [address] [facility] 2021-07-17 Emergency [facility] [id number] Univers 01:55:47 [facility] 2021-07-16 Emergency [facility] [id number] Univers 11:14:41 [facility] 2021-07-15 Emergency [facility] [id number] Univers 18:08:36 [facility] 2021-07-14 [facility] [id number] Univers 17:19:04 CRYSTAL [facility] 2022-07-10 2022-07-10 Office Marcello, 1.2.840.1 [id number] Methodi 14:45:00 16:19:02 Visit Ofelia 71459.1.[address] 3.430.2.7 Hospit a .3.663351 l .8 2022-07-10 2022-07-10 Travel 1.2.840.1 1.2.848.282 9412 920037 Methodi 00:00:00 00:00:[address] 3.430.2.7 0.2.7.3.698 Ho spita .3.802681 084.8 l .8 2022-07-10 2022-07-10 Outpatient MARCELLO [facility] [id number] 974 [place] 00:00:00 00:00:[address]EL[address] 2022-07-06 2022-07-06 (TEL) STLMLC STLMLC [id number] Co mmon 00:00:00 00:00:00 [facility] 2022-07-06 2022-07-06 (HOSP F/U) STLMLC STLMLC [id number] Common 00:00:00 00:00:00 Hospital [facility] Follow Up [facility] 2022-06-30 2022-06-30 (TEL) STLMLC STLMLC [id number] Co mmon 00:00:00 00:00:00 [facility] 2022-06-19 2022-06-19 Orders Doctor MARTHA 1.2.840.114 [id number] Univers 00:00:00 00:00:00 Only Unassigned, MELIZA 350.1.13.10 ity of [place] [facility] 4.2.7.2.686 Edward as [phone] [place] [address] [address] 2022-05-19 2022-05-19 (TEL) STLMLC STLMLC [id number] Co mmon 00:00:00 00:00:00 [facility] 2022-05-18 2022-05-18 (TEL) STLMLC STLMLC [id number] Co mmon 00:00:00 00:00:00 [facility] 2022-05-17 2022-05-17 OL DIG E/M STLMLC STLMLC [id number] Common 00:00:00 00:00:00 [facility] 11-20 Spir it MIN [facility] 2022-05-17 2022-05-17 (TEL) STLMLC STLMLC [id number] Co mmon 00:00:00 00:00:00 [facility] 2022-04-27 2022-04-27 (TEL) STLMLC STLMLC [id number] Co mmon 00:00:00 00:00:00 [facility] 2022-04-25 2022-04-25 OFFICE STLMLC STLMLC [id number] Co mmon 00:00:00 00:00:00 VISIT Spirit ESTAB PT - CHI LEVEL 4 [facility] 2022-02-15 2022-02-15 Office Oolut, 1.2.840.1 [id number] 6240 Methodi 15:45:00 16:54:20 Visit Christina 94509.1.[address] 3.430.2.7 Hospit a .3.637930 l .8 2022-02-15 2022-02-15 Office [place], 1.2.840.1 [id number] 0217 Methodi 15:45:00 16:54:20 Visit Christina 99640.1.[address] 3.430.2.7 Hospit a .3.949832 l .8 2022-02-15 2022-02-15 Clinical Ivette, 1.2.840.1 [id number] 35523 49839 Methodi 15:15:00 16:54:02 Support Lorrainenee 17795.1.[address] 3.430.2.7 Hospit a .3.457995 l .8 2022-02-15 2022-02-15 Clinical Ivette, 1.2.840.1 [id number] 44297 32485 Methodi 15:15:00 16:54:02 Support Lorrainenee 40893.1.[address] 3.430.2.7 Hospit a .3.537781 l .8 2022-02-15 2022-02-15 Clinical Ivette, 1.2.840.1 [id number] 63951 70442 Methodi 15:00:00 16:53:51 Support Ainee 72668.1.[address] 3.430.2.7 Hospit a .3.455448 l .8 2022-02-15 2022-02-15 Clinical Ievtte, 1.2.840.1 [id number] 48821 Methodi 15:00:00 16:53:51 Support Ainee 40137.1.[address] 3.430.2.7 Hospit a .3.338598 l .8 2022-02-15 2022-02-15 Travel 1.2.840.1 1.2.955.749 0044 663807 Methodi 00:00:00 00:00:[address] 3.430.2.7 0.2.7.3.698 Ho spita .3.176457 084.8 l .8 2022-02-15 2022-02-15 Travel 1.2.840.1 1.2.285.593 5189 574873 Methodi 00:00:00 00:00:[address] 3.430.2.7 0.2.7.3.698 Ho spita .3.112215 084.8 l .8 2022-01-13 2022-01-13 Orders Doctor MARTHA 1.2.840.114 [id number] 08 Univers 00:00:00 00:00:00 Only Unassigned, MELIZA 350.1.13.10 ity of [place] [facility] 4.2.7.2.686 Edward as [phone] [place] [address] [address] 2022-01-11 2022-01-11 Office [place], 1.2.840.1 [id number] 176670 7818 Methodi 15:30:00 16:09:44 Visit Christina 81989.1.[address] 3.430.2.7 Hospit a .3.430008 l .8 2022-01-11 2022-01-11 Office [place], 1.2.840.1 [id number] 067854 9637 Methodi 15:30:00 16:09:44 Visit Christina 64146.1.[address] 3.430.2.7 Hospit a .3.701814 l .8 2022-01-11 2022-01-11 Travel 1.2.840.1 1.2.124.878 6177 124007 Methodi 00:00:00 00:00:[address] 3.430.2.7 0.2.7.3.698 Ho spita .3.258074 084.8 l .8 2022-01-11 2022-01-11 Travel 1.2.840.1 1.2.015.529 6417 578119 Methodi 00:00:00 00:00:[address] 3.430.2.7 0.2.7.3.698 Ho spita .3.767666 084.8 l .8 2022-01-02 2022-01-02 Refgaurang Fraser, [facility] 1.2.840.114 [id number] 776 Univers 00:00:00 00:00:00 Wondiful A [place] 350.1.13.10 ity of [place] [phone] [address] 2021-12-28 2021-12-28 [facility] [id number] Co mmon 00:00:00 00:00:00 VISIT EST Spir it PT LEVEL 3 - [facility] 2021-12-22 2021-12-22 (TEL) [facility] [id number] Co mmon 00:00:00 00:00:00 [facility] 2021-12-06 2021-12-06 [facility]urang [facility] 1.2.840.114 [id number] Univers 00:00:00 00:00:00 Wondiful A [place] 350.1.13.10 ity of [place].7.2.[place] [phone] [address] 2021-11-29 2021-11-29 PREV [facility] [id number] Common 00:00:00 00:00:00 EST AGE 65 Spi rit & OVER - [facility] 2021-11-18 2021-11-18 (TEL) [facility] [id number] Co mmon 00:00:00 00:00:00 [facility] 2021-11-11 2021-11-11 Justo Fraser, [facility] 1.2.840.114 [id number] 874 Univers 00:00:00 00:00:00 Wondiful A HEALTH 350.1.13.10 ity of [place] 4.2.7.2.686 Edward as PROFESSIO [phone] Wy dical NAL [address] OFFICE [facility] ONE 2021-11-03 2021-11-03 PreReg nullFlavo [facility] [id number] Memoria 16:15:00 16:15:00 r Chong 01 [facility] 2021-11-03 2021-11-03 PreReg nullFlavo [facility] [id number] 475 Memoria 16:15:00 16:15:00 r Chong [facility] 2021-11-03 2021-11-03 Outpatient Julianne, [facility] [id number] 10:15:00 10:15:00 Roberto 01 Ahmad 2021-11-02 2021-11-02 Outpatient JULIANNE [facility] 7501 [facility] 12:41:00 23:59:00 ROBERTO 2021-11-01 2021-11-02 Outpatient nullFlavo [facility] 912 [id number] Memoria 19:10:00 05:59:59 r Care Clear 00 [facility] 2021-11-01 2021-11-02 Outpatient nullFlavo [facility] Urgent [id number] Memoria 19:10:00 05:59:59 r Care Clear 00 l [facility] 2021-11-01 2021-11-01 Outpatient MHMG MHMG [id number] 13:10:00 23:59:59 00 2021-11-01 2021-11-01 Outpatient MHIE MHIE [id number] Memoria 13:10:00 13:10:00 00 [facility] 2021-10-26 2021-10-26 OFFICE STLMLC STLC [id number] Co mmon 00:00:00 00:00:00 VISIT EST Spir it PT LEVEL 3 - [facility] 2021-09-28 2021-09-28 OFFICE STLMLC STLMLC [id number] Co mmon 00:00:00 00:00:00 VISIT Spirit ESTAB PT - CHI LEVEL 4 [facility] 2021-09-02 2021-09-02 (TEL) STLMLC STLMLC [id number] Co mmon 00:00:00 00:00:00 Spirit - [facility] 2021-08-29 2021-08-29 OFFICE [facility] [id number] Co mmon 00:00:00 00:00:00 VISIT Spirit ESTAB PT - CHI LEVEL 4 [facility] 2021-08-25 2021-08-25 (TEL) [facility] [id number] Co mmon 00:00:00 00:00:00 Spirit - [facility] 2021-05-04 2021-05-04 [facility] 1.2.840.114 [id number] Univers 00:00:00 00:00:00 Wondiful A [place] 350.1.13.10 ity of [place].7.2.[place] [phone] [address] 2021-04-27 2021-04-27 Orders Doctor MARTHA 1.2.840.114 [id number] Univers 00:00:00 00:00:00 Only Unassigned, MELIZA 350.1.13.10 ity of [place] [facility] 4.2.7.2.686 Edward as [phone] [address] 2021-04-20 2021-04-20 OFFICE [facility] [id number] Co mmon 00:00:00 00:00:00 VISIT NEW Spir it PT LEVEL 4 - [facility] 2021-03-14 2021-03-14 Outpatient Dulce DRAKE [facility] [id number] Univers 14:40:00 14:40:00 LUSI contreras [facility] 2021-03-08 2021-03-08 News Internship Lab, Adc Fam Pob I [facility] 1.2. 840.114 [id number] Univers 15:45:57 16:05:57 Visit [facility] 350.1.13.1 0 ity of [place] 4.2.7.2.686 Edward as Professio [phone] [address] Office Building One 2021-03-08 2021-03-08 Office Alexander [facility] 1.2.840.114 [id number] Univers 14:56:34 15:26:34 Visit Edward [facility] 350.1.13.10 i ty of [place] 4.2.7.2.686 Edward as Professio [phone] [facility] nal [address] [place] [address] Office [facility] One 2021-03-08 2021-03-08 Outpatient R ALEXANDER [facility] [id number] Univers 15:00:00 15:00:00 EDWARD andrewy o f [facility] 2021-03-07 2021-03-07 Orders Doctor MARTHA 1.2.840.114 [id number] Univers 00:00:00 00:00:00 Only Unassigned, MELIZA 350.1.13.10 ity of [place] [facility] 4.2.7.2.686 Edward as [phone] [address] 2021-03-05 2021-03-05 Justo Morrissey [facility] 1.2.840.114 [id number] Univers 00:00:00 00:00:00 Jenny [facility] 350.1.13.10 it y of [place] 4.2.7.2.686 Edward as Professio [phone] Wy dicnv nal [address] [place] [address] Office [facility] One 2021-03-05 2021-03-05 Refgaurang [facility] 1.2.840.114 [id number] Univers 00:00:00 00:00:00 Wondiful A [place] 350.1.13.10 ity of [place] [phone] Wy dical nal [address] [place] [address] 2021-02-22 2021-02-22 Justo [facility] 1.2.840.114 [id number] Univers 00:00:00 00:00:00 Wondiful A Health 350.1.13.10 ity of [place] 4.2.7.2.686 Edward as Professio [phone] Wy dical nal [address] [place] [address] Office [facility] One 2021-02-21 2021-02-21 Day [facility] [id number] Memoria 15:04:00 20:44:00 Surgery r [place] 00 l [facility] 2021-02-21 2021-02-21 Day [facility] [id number] 475 Memoria 15:04:00 20:44:00 Surgery r Chong 00 l [facility] 2021-02-21 2021-02-21 Outpatient EKHAESE, MHSE EVERETT 7500 MH 10:04:00 15:44:00 [facility] 2021-02-[facility] 2021-02-21 Outpatient Ekhaese, MHSE MHSE [id number] 10:04:00 15:44:00 Obonoruma 00 Imariabe 2021-02-21 2021-02-21 Outpatient Ekhaese, MHSE MHSE [id number] 12:30:00 12:30:00 O[place] 00 Imariabe 2021-02-09 2021-02-09 Orders Doctor MARTHA 1.2.840.114 [id number] Univers 00:00:00 00:00:00 Only Unassigned, MELIZA 350.1.13.10 [facility] 4.2.7.2.686 Edward as [phone] [address] 2021-02-07 2021-02-07 Office Kt [facility] 1.2.840.114 [id number] Univers 15:40:09 15:55:09 Visit [facility] 350.1.13.10 it y of [place] 4.2.7.2.686 Edward as Professio [phone] [address] One 2021-02-07 2021-02-07 Outpatient Dulce DORSEY [facility] [id number] Univers 15:45:00 15:45:00 OMID pdaron of [facility] 2021-02-07 2021-02-07 Case Evelio [facility] 1.2.840.114 [id number] Univers 00:00:00 00:00:00 Management Wonfarrukh Shah [facility] 350.1.13.10 ity of [place] 4.2.7.2.686 Edward as Professio [phone] [address] Office [facility] One 2021-02-04 2021-02-04 Urgent Provider, [facility] Urgent Care [facility] 1.2.840.114 [id number] Univers 16:53:21 17:45:02 Care Martha Horton [facility] 350.1.13.10 ity of [place] 4.2.7.2.686 Edward as Professio [phone] [address] One 2021-02-04 2021-02-04 Outpatient R RICH [facility] [id number] Univers 17:00:00 17:00:00 MARTHA ity [facility] 2021-01-26 2021-01-26 Outpatient R [facility] [id number] Univers 09:40:00 09:40:00 ity [facility] 2021-01-26 2021-01-26 News Internship Lab, Adc Fam Pob I [facility] 1.2. 840.114 [id number] Univers 08:47:10 09:15:12 Visit Jose [facility] 350.1.13.1 0 ity of [place] 4.2.7.2.686 Edward as Professio [phone] [address] One 2021-01-25 2021-01-25 Office [facility] 1.2.840.114 [id number] Univers 14:45:18 15:28:27 Visit Wondiful A Health 350.1.13.10 ity of [place] 4.2.7.2.686 Edward as Professio [phone] [address] One 2021-01-25 2021-01-25 Outpatient R EVELIO [facility] [id number] Univers 15:00:00 15:00:00 WONDIFUL ity o f [facility] 2021-01-19 2021-01-19 Outpatient R SAKINA MILLAN [facility] [id number] Univers 14:00:00 14:00:00 SAKINA [facility]ILLAN [facility] 2021-01-19 2021-01-19 Refill [facility] 1.2.840.114 [id number] Univers 00:00:00 00:00:00 Wondiful A [place] 350.1.13.10 ity of [place] [phone] [address] 2020-12-07 2020-12-07 Outpatient R JAYLA [facility] [id number] Univers 10:15:00 10:15:00 SHEEBA contreras [facility] 2020-12-01 2020-12-01 [facility] 1.2.840.114 [id number] Univers 00:00:00 00:00:00 [facility] 350.1.13.10 ity of [place] 4.2.7.2.686 Edward as Professio [phone] [facility] [address] Office Building One 2020-11-17 2020-11-17 Outpatient R SAKINA MILLAN [facility] [id number] Univers 14:30:00 14:30:00 [facility] 2020-11-14 2020-11-14 Emergency [facility] 1.2.559.124 [id number] Univers 12:38:00 15:59:00 Patricia Adam 350.1.13.10 i ty of [place] 4.2.7.2.686 [place] [phone] [facility] [address] 2020-11-14 2020-11-14 Orders Doctor MARTHA 1.2.840.114 [id number] Univers 00:00:00 00:00:00 Only Unassigned, MELIZA 350.1.13.10 ity of [place] [facility] 4.2.7.2.686 Edward as [phone] [facility] [address] 2020-11-09 2020-11-09 [facility] 1.2.840.114 [id number] Univers 10:21:15 11:08:18 Visit Sheeba Adam 350.1.13.10 ity of [place].7.2.[place] [phone] [facility] [address] 2020-11-09 2020-11-09 [facility] [id number] Univers 10:15:00 10:15:00 SHEEBA contreras [facility] 2020-10-22 2020-10-22 Just[facility] 1.2.840.114 [id number] Univers 00:00:00 00:00:00 Wondiful A Health 350.1.13.10 ity of [place] 4.2.7.2.686 Edward as Professio [phone] Wy dical nal [address] Office Building One 2020-10-13 2020-10-13 Office Monty [facility] 1.2.150.627 [id number] Univers 14:30:00 15:00:00 Visit Sakina Collins [place] 350.1.13.10 ity of [place] 4[place].7.2.[place] [phone] Wy dical nal 085 [facility] 2020-10-13 2020-10-13 Outpatient R SAKINA MILLAN [facility] [id number] Univers 14:30:00 14:30:00 SAKINA MILLAN ity [facility] 2020-10-09 2020-10-09 Patient Dontrell [facility] 1.2.840.114 [id number] Univers 00:00:00 00:00:00 Outreach Henry PRIMARY 350.1.13.10 i ty of [facility] 4.2.7.2.686 [place] [phone] Wy dical [address] 2020-10-08 2020-10-08 Orders Doctor MARTHA 1.2.840.114 [id number] Univers 00:00:00 00:00:00 Only Unassigned, MELIZA 350.1.13.10 ity of [place] [facility] 4.2.7.2.686 Edward as [phone] [facility] [address] 2020-10-06 2020-10-06 Orders Doctor MARTHA 1.2.840.114 [id number] Univers 00:00:00 00:00:00 Only Unassigned, MELIZA 350.1.13.10 ity of [place] [facility] 4.2.7.2.686 Edward as [phone] [facility] [address] 2020-10-05 2020-10-05 Outpatient R ROSAS [facility] [id number] Univers 14:00:00 14:00:00 SENDIL ity [facility] 2020-10-05 2020-10-05 Orders Doctor MARTHA 1.2.840.114 [id number] Univers 00:00:00 00:00:00 Only Unassigned, MELIZA 350.1.13.10 ity of [place] [facility] 4.2.7.2.686 Edward as [phone] [address] 2020-10-05 2020-10-05 Telephone [facility] 1.2.840.114 [id number] Univers 00:00:00 00:00:00 Wondiful A Health 350.1.13.10 ity of [place] 4.2.7.2.686 Edward as Professio [phone] [address] 2020-09-28 2020-09-28 Office [facility] 1.2.840.114 [id number] Univers 09:23:42 10:43:16 Visit Sheeba Adam 350.1.13.10 ity of [place].2.[place] [phone] [address] 2020-09-28 2020-09-28 [facility] [id number] Univers 09:15:00 09:15:00 SHEEBA vito o f [facility] 2020-09-28 2020-09-28 [facility] 1.2.840.114 [id number] [facility] 00:00:00 00:00:00 Wondiful A Health 350.1.13.10 ity of [place] 4.2.7.2.686 Edward as Professio [phone] Wy dic[address] Office [facility] 2020-09-21 2020-09-21 News Internship Lab, Adc Fam Pob I [facility] 1.2. 840.114 [id number] Univers 13:34:10 13:54:10 Visit Jose [facility] 350.1.13.1 0 ity of [place] 4.2.7.2.686 Edward as Professio [phone] Wy dical nal [address] [place] [address] 2020-09-21 2020-09-21 Office [facility] 1.2.840.114 [id number] [facility] 12:43:33 13:35:18 Visit Wondiful A Health 350.1.13.10 ity of [place] 4.2.7.2.686 Edward as Professio [phone] [address] One 2020-09-21 2020-09-21 [facility] [id number] Univers 13:00:00 13:00:00 WONDIFUL ity o f [facility] 2020-09-06 2020-09-06 Refgaurang [facility] 1.2.840.114 [id number] Univers 00:00:00 00:00:00 Wondiful A [place] 350.1.13.10 ity of [place].2.[place] [phone] [address] 2020-09-01 2020-09-01 Outpatient [facility] [id number] Univers 13:30:00 13:30:00 FRANCISCA padron [facility] 2020-09-01 2020-09-01 Case [facility] 1.2.840.114 [id number] Univers 00:00:00 00:00:00 Management Wondiful A Health 350.1.13.10 ity of [place] 4.2.7.2.686 Edward as Professio [phone] [address] 2020-08-31 2020-08-31 Refgaurang [facility] 1.2.840.114 [id number] Univers 00:00:00 00:00:00 Wondiful A Health 350.1.13.10 ity of [place] 4.2.7.2.686 Edward as Professio [phone] [address] Office [facility] 2020-08-30 2020-08-30 Emergency Lona Kelley [facility] 1.2.840.114 [id number] Univers 18:51:00 23:05:00 Shahla [place] 350.1.13.10 i ty of [place] 4[place]2.7.2.686 [place] [phone] [facility] [address] 2020-08-30 2020-08-30 Telephone [facility] 1.2.840.114 [id number] Univers 00:00:00 00:00:00 Wondiful A Health 350.1.13.10 ity of [place] 4.2.7.2.686 Edward as Professio [phone] Wy dical nal [address] Office [facility] One 2020-08-26 2020-08-26 [facility] 1.2.840.114 [id number] Univers 00:00:00 00:00:00 Management Wondiful A Health 350.1.13.10 ity of [place] 4.2.7.2.686 Edward as Professio [phone] Wy dical nal 044 [facility] 2020-08-25 2020-08-25 [facility] 1.2.248.663 [id number] Univers 13:02:50 13:10:00 Encounter Wondiful A [place] 350.1.13.10 ity of [place].7.2.[place] [phone] [facility] [address] 2020-08-25 2020-08-25 [facility] 1.2.410.965 [id number] Univers 12:47:30 13:01:00 Encounter Wondiful A [place] 350.1.13.10 ity of [place] 4.2.7.2.686 [place] [phone] [facility] [address] 2020-08-25 2020-08-25 [facility] [id number] Univers 00:00:00 00:00:00 WONDIFUL ity o f [facility] 2020-08-25 2020-08-25 Justo [facility] 1.2.840.114 [id number] Univers 00:00:00 00:00:00 Qiangjun [place] 350.1.13.10 ity of [place] 4[place]2.7.2.[place] [phone] Wy dical nal 059 [facility] 2020-08-25 2020-08-25 [facility] 1.2.840.114 [id number] Univers 00:00:00 00:00:00 Management Wondiful A Health 350.1.13.10 ity of [place] 4.2.7.2.686 Edward as Professio [phone] [address] 2020-08-24 2020-08-24 News Internship Lab, Adc Fam Pob I [facility] 1.2. 840.114 [id number] Univers 10:22:51 10:42:51 Visit Jose [facility] 350.1.13.1 0 ity of [place] 4.2.7.2.686 Edward as Professio [phone] [address] 2020-08-24 2020-08-24 [facility] [id number] Univers 10:20:00 10:20:00 WONDIFUL ity o f [facility] 2020-08-23 2020-08-23 Office [facility] 1.2.840.114 [id number] Univers 09:39:39 17:20:11 Visit [facility] 350.1.13.10 [place] of [place] 4.2.7.2.686 [place] Professio [phone] [address] 2020-08-23 2020-08-23 Outpatient R EVELIO [facility] [id number] Univers 16:15:00 16:15:00 WONDIFUL ity o ben [facility] 2020-08-16 2020-08-16 Telephone [facility] 1..840.114 [id number] Univers 00:00:00 00:00:00 [facility] 350.1.13.10 it[place] of [place] 4.2.7.2.686 [place] Profess[place] [phone] [address] 2020-08-13 2020-08-13 [facility] 1..840.114 [id number] Univers 00:00:00 00:00:00 [facility] 350.1.13.10 ity of [place] 4.2.7.2.686 [place] Professio [phone] [address] 2020-08-11 2020-08-11 Office Monty [facility] 1..650.949 [id number] Univers 15:12:55 15:42:55 Visit Sakina Medina 350.1.13.10 [place] [phone] Wy dical nal 085 [facility] 2020-08-11 2020-08-11 Outpatient R MONTYSAKINA [facility] [id number] Univers 15:30:00 15:30:00 MONTYMEAGANJANICEL ity of [facility] 2020-08-11 2020-08-11 Orders Doctor MARTHA 1.2.840.114 [id number] Univers 00:00:00 00:00:00 Only Unassigned, MELIZA 350.1.13.10 ity of [place] [facility] 4.2.7.2.686 Edward as [phone] [facility] [address] 2020-08-09 2020-08-09 Office [facility] 1.2.840.114 [id number] Univers 14:34:46 15:13:12 Visit Luis Medina 350.1.13.10 [place] [phone] [facility] nal 059 [facility] 2020-08-09 2020-08-09 Outpatient R VIDAL [facility] [id number] Univers 14:40:00 14:40:00 BABITALORNA andrewy o f [facility] 2020-07-17 2020-07-17 Outpatient R MONTYJEFFNamrata [facility] [id number] Univers 20:00:00 20:00:00 SAKINA MILLAN ity of [facility] 2020-07-17 2020-07-17 Orders Doctor MARTHA 1.2.840.114 [id number] Univers 00:00:00 00:00:00 Only Unassigned, MELIZA 350.1.13.10 ity of [place] [facility] 4.2.7.2.686 [place] as [phone] [address] 2020-07-16 2020-07-16 News Internship 1, [facility] Sleep Lab Bed [facility] 1. 2.840.114 [id number] Univers 13:58:59 16:28:59 Visit Sakina Millan 350.1.13. 10 [place] [phone] [facility] [address] 2020-07-15 2020-07-15 Laboratory Only, Adc Test [facility] 1.2.840. 114 [id number] Univers 11:55:53 12:10:53 Only Kevin Greene Adam 350.1.13.10 [place].2.[place] [phone] [facility] [address] 2020-07-15 2020-07-15 Outpatient R [facility] [id number] Univers 11:45:00 11:45:00 [facility]y of [facility] [facility] 2020-07-09 2020-07-09 [facility] 1.2.840.114 [id number] Univers 11:44:34 12:19:20 Visit Luis Medina 350.1.13.10 [place] [phone] Wy dical nal 059 [facility] 2020-07-09 2020-07-09 [facility] [id number] Univers 11:40:00 11:40:00 LUIS padron o f [facility] 2020-07-09 2020-07-09 Justo [facility] 1.2.840.114 [id number] Univers 00:00:00 00:00:00 Ronalkirstenkyle Shah Adam 350.1.13.10 [place] [phone] Wy dical nal 044 [facility] 2020-07-07 2020-07-07 Office Monty [facility] 1.2.469.018 [id number] Univers 14:17:59 14:47:59 Visit Sakina Medina 350.1.13.10 [place] [phone] Wy dical nal 085 [facility] 2020-07-07 2020-07-07 Outpatient R SAKINA MILLAN [facility] [id number] Univers 14:30:00 14:30:00 SAKINA MILLAN ity of [facility] 2020-07-06 2020-07-06 Refill [facility] 1.2.840.114 [id number] Univers 00:00:00 00:00:00 Wondiful A Health 350.1.13.10 ity of [place] 4.2.7.2.686 [place] as Professio [phone] [address] Office [facility] One 2020-06-29 2020-06-29 Telephone [facility] 1.2.840.114 [id number] Univers 00:00:00 00:00:00 Wondiful A Health 350.1.13.10 ity of [place] 4.2.7.2.686 [place] Professio [phone] [address] Office [facility] One 2020-06-28 2020-06-28 Case [facility] 1.2.840.114 [id number] Univers 00:00:00 00:00:00 Management Wondiful A Health 350.1.13.10 ity of [place] 4.2.7.2.686 [place] Professio [phone] [address] Office [facility] 2020-06-21 2020-06-21 News Internship Lab, Adc Fam Pob I [facility] 1.2. 840.114 [id number] Univers 15:51:13 16:01:13 Visit [facility] 350.1.13.1 0 ity of [place] 4.2.7.2.686 [place] Professio [phone] [address] Office [facility] 2020-06-21 2020-06-21 Office [facility] 1.2.840.114 [id number] Univers 14:55:43 15:53:28 Visit Wondiful A Health 350.1.13.10 ity of [place] 4.2.7.2.686 [place] as Professio [phone] [address] Office [facility] 2020-06-21 2020-06-21 Outpatient [facility] [id number] Univers 15:15:00 15:15:00 WONDIFUL ity o f [facility] 2020-06-17 2020-06-17 News Internship Tech, Adc Sleep Lab [facility] 1.2 .840.114 [id number] Univers 13:00:28 13:15:28 Visit Sakina Millan 350.1.13. 10 ity of [place] 4.2.7.2.686 [facility] [phone] [facility] [address] 2020-06-17 2020-06-17 Outpatient R [facility] [id number] Univers 13:00:00 13:00:00 ity of [facility] 2020-06-15 2020-06-15 Outpatient R MEAGAN MILLANKYNamrata [facility] [id number] Univers 14:00:00 14:00:00 SAKINA MILLAN itewelina of [facility] 2020-06-11 2020-06-11 Outpatient R [facility] [id number] Univers 15:00:00 15:00:00 ity of [facility] 2020-06-11 2020-06-11 Laboratory Only, Adc Test [facility] 1.2.840. 114 [id number] Univers 14:10:00 14:25:00 Only LapKevin parekh 350.1.13.10 ity of [place] 4.2.7.2.686 [facility] [phone] [facility] [address] 2020-06-11 2020-06-11 Orders Doctor MARTHA 1.2.840.114 [id number] Univers 00:00:00 00:00:00 Only Unassigned, MELIZA 350.1.13.10 ity of [place] [facility] 4.2.7.2.686 Edward as [phone] [facility] [address] 2020-06-09 2020-06-09 Office [facility] 1.2.840.114 [id number] Univers 14:14:37 14:57:58 Visit Luis Medina 350.1.13.10 [place] [phone] Wy dical [facility] 059 [facility] 2020-06-09 2020-06-09 Outpatient R VIDAL [facility] [id number] Univers 14:20:00 14:20:00 LUIS padron o f [facility] 2020-06-09 2020-06-09 Telephone [facility] 1.2.840.114 [id number] Univers 00:00:00 00:00:00 Wondiful A Health 350.1.13.10 it[place] of [place] 4.2.7.2.686 [place] as Professio [phone] [address] One 2020-06-08 2020-06-08 [facility] [id number] Univers 11:45:00 11:45:00 WONDIFUL ity o f [facility] 2020-06-07 2020-06-07 Office [facility] 1.2.840.114 [id number] Univers 10:11:55 10:51:44 Visit Wondiful A Health 350.1.13.10 ity of [place] 4.2.7.2.686 [place] as Professio [phone] [address] One 2020-06-07 2020-06-07 [facility] [id number] Univers 10:00:00 10:00:00 WONDIFUL ity o f [facility] 2020-06-07 2020-06-07 Refill [facility] 1..840.114 [id number] Univers 00:00:00 00:00:00 Wondiful A Health 350.1.13.10 ity of [place] 4.2.7.2.686 [place] Professio [phone] [address] One 2020-06-03 2020-06-03 Emergency [facility] 1..840.114 [id number] Univers 15:17:00 18:33:00 Ko B [place] 350.1.13.10 i [place] [phone] [address] 2020-06-03 2020-06-03 Telephone [facility] 1.2.840.114 [id number] Univers 00:00:00 00:00:00 Wondiful A Health 350.1.13.10 ity of [place] 4.2.7.2.686 [place] as Professio [phone] Me dical nal 044 [facility] 2020-06-01 2020-06-01 Refill Evelio [facility] 1.2.840.114 [id number] Univers 00:00:00 00:00:00 Wondiful A [place] 350.1.13.10 [place] [phone] [facility] 044 [facility] 2020-05-10 2020-05-27 Office Evelio [facility] 1.2.840.114 [id number] Univers 13:59:31 17:39:50 Visit Wondiful A [place] 350.1.13.10 [place] [phone] [address] 2020-05-23 2020-05-23 Refill [facility] 1.2.840.114 [id number] Univers 00:00:00 00:00:00 Wondiful A Health 350.1.13.10 ity of [place] 4.2.7.2.686 [place] as Professio [phone] [facility] [address] [place] [address] 2020-05-10 2020-05-10 News Internship 2, Adc Lab [facility] 1.2.840.114 [id number] Univers 15:20:43 15:35:43 Visit Evelio, Jose Pablo [place] 350.1.13. 10 [place] [phone] [facility] 353 [facility] 2020-05-10 2020-05-10 Outpatient R EVELIO [facility] [id number] Univers 15:30:00 15:30:00 WONDIFUL ity o f [facility] 2020-04-16 2020-04-16 Refgaurang [facility] 1.2.840.114 [id number] Univers 00:00:00 00:00:00 Wondiful A Health 350.1.13.10 ity of [place] 4.2.7.2.686 [place] as Professio [phone] [address] Office [facility] 2020-04-13 2020-04-13 Telephone Evelio [facility] 1.2.840.114 [id number] Univers 00:00:00 00:00:00 Wondiful A [place] 350.1.13.10 [place] [phone] [facility] 044 [facility] 2020-04-13 2020-04-13 Refill [facility] 1.2.840.114 [id number] Univers 00:00:00 00:00:00 Wondiful A Health 350.1.13.10 ity of [place] 4.2.7.2.686 [place] as Professio [phone] [facility] [address] [place] [address] Building One 2020-04-12 2020-04-12 Orders Doctor MARTHA 1.2.840.114 [id number] Univers 00:00:00 00:00:00 Only Unassigned, MELIZA 350.1.13.10 ity of [place] [facility] 4.2.7.2.686 Edward as [phone] [facility] [address] 2020-02-26 2020-02-26 Office [facility] 1.2.840.114 [id number] Univers 14:19:17 15:14:21 Visit Bhavin Medina 350.1.13.10 i [place] [phone] [facility] nal 085 [facility] 2020-02-26 2020-02-26 Outpatient R BHAVIN CLAYTON [facility] 10 [id number] Univers 14:20:00 14:20:00 BHAVIN CLAYTON i ty of [facility] 2020-02-23 2020-02-23 Telephone Motility, [facility] 1.2.840.114 [id number] Univers 00:00:00 00:00:00 Endoscopy ICAL 350.1.13.10 ity of [place] 4.2.7.2.686 Edward as BLDG [phone] [facility] [address] [place] 2020-02-16 2020-02-16 Orders Doctor MARTHA 1.2.840.114 [id number] Univers 00:00:00 00:00:00 Only Unassigned, MELIZA 350.1.13.10 ity of [place] [facility] 4.2.7.2.686 Edward as [phone] [address] 2020-01-20 2020-01-20 Refill Evelio [facility] 1.2.840.114 [id number] Univers 00:00:00 00:00:00 Wondiful A Health 350.1.13.10 ity of [place] 4.2.7.2.686 Edward as Professio [phone] [facility] [address]44 [facility] 2020-01-19 2020-01-19 Telephone [facility] 1.2.815.094 [id number] Univers 00:00:00 00:00:00 Qiangjun [place] 350.1.13.10 it[place] [phone] [facility] 059 [facility] 2020-01-16 2020-01-16 Telephone Evelio [facility] 1.2.840.114 [id number] Univers 00:00:00 00:00:00 Wondiful A Health 350.1.13.10 ity of [place] 4.2.7.2.686 [place] as Professio [phone] [address] 2020-01-12 2020-01-12 Telephone [facility] 1.2.840.114 [id number] Univers 00:00:00 00:00:00 Wondiful A [place] 350.1.13.10 it[place] [phone] [address] 2020-01-12 2020-01-12 Orders Doctor MARTHA 1.2.840.114 [id number] Univers 00:00:00 00:00:00 Only Unassigned, MELIZA 350.1.13.10 ity of [place] [facility] 4.2.7.2.686 Edward as [phone] [address] 2020-01-05 2020-01-05 Outpatient R EVELIO [facility] [id number] Univers 08:15:00 08:15:00 WONDIFUL ity o f [facility] 2020-01-05 2020-01-05 Telemedici [facility] 1.2.840.114 [id number] Univers 07:03:47 07:33:47 ne Visit Wondiful A [place] 350.1.13.10 it[place] [phone] [address] 2019-12-30 2019-12-30 Telephone [facility] 1..840.114 [id number] Univers 00:00:00 00:00:00 Wondiful A Health 350.1.13.10 ity of [place] 4.2.7.2.686 Edward as Professio [phone] [address] Office [facility] 2019-12-23 2019-12-23 Telemedic [facility] 1..840.114 [id number] Univers 07:43:58 15:05:06 ne Visit Wondiful A [place] 350.1.13.10 it[place]2.[place] [phone] [address] 2019-12-23 2019-12-23 [facility] [id number] Univers 13:00:00 13:00:00 WONDIFUL ity o f [facility] 2019-12-21 2019-12-21 Refill [facility] 1..840.114 [id number] Univers 00:00:00 00:00:00 Wondiful A Health 350.1.13.10 ity of [place] 4.2.7.2.686 [place] as Professio [phone] [address] Office [facility] 2019-12-11 2019-12-11 Transition Bonnie Rios 1..840.114 [id number] Univers 00:00:00 00:00:00 of Care Sofia Price 350.1.13.10 it y of [place].2.[place] [phone] [address] 2019-12-10 2019-12-10 Transition Bonnie Rios 1..840.114 [id number] Univers 00:00:00 00:00:00 of Care Sofia Price 350.1.13.10 it y of [place]2.7.2.[place] [phone] [facility] [address] 2019-12-10 2019-12-10 Telephone Evelio [facility] 1.2.840.114 [id number] Univers 00:00:00 00:00:00 W[place]iful A [place] 350.1.13.10 it[place] [phone] [address] 2019-12-06 2019-12-09 Inpatient X KYRIE [facility] [id number] Univers 20:15:25 19:57:00 MERCY ity of [facility] 2019-12-06 2019-12-09 [facility] Everton Scott [facility] 1.2.840.114 [id number] Univers 20:15:25 19:57:00 Encounter Kyrie Rejiewelina Medina 350.1.13.10 it[place] of [place].2.[place] [phone] [facility] [address] 2019-12-09 2019-12-09 [facility]ill [facility] 1.2.840.114 [id number] Univers 00:00:00 00:00:00 Wondiful A Health 350.1.13.10 ity of [place] 4.2.7.2.686 Edward as Professio [phone] [address] Office Building One 2019-11-19 2019-11-19 Telephone Motility, [facility] 1.2.840.114 [id number] Univers 00:00:00 00:00:00 Endoscopy ICAL 350.1.13.10 ity of [place] 4.2.7.2.686 Edward as BLDG [phone] [address] 2019-11-18 2019-11-18 Telephone Motility, [facility] 1.2.840.114 [id number] Univers 00:00:00 00:00:00 Endoscopy ICAL 350.1.13.10 ity of [place] 4.2.7.2.686 Edward as BLDG [phone] [address] 2019-11-14 2019-11-14 Emergency X JOSE GUADALUPE, [facility] ERT [id number] Univers 18:32:04 20:53:00 PATRICIA ity of [facility] 2019-11-14 2019-11-14 Emergency Jose [facility] 1.2.281.738 [id number] Univers 18:32:04 20:53:00 Patricia Medina 350.1.13.10 i ty of [place].2.[place] [phone] [facility] [address] 2019-11-14 2019-11-14 Orders Doctor MARTHA 1.2.840.114 [id number] Univers 00:00:00 00:00:00 Only Unassigned, MELIZA 350.1.13.10 ity of [place] [facility] 4.2.7.2.686 Edward as [phone] [facility] [address] 2019-11-13 2019-11-13 Telephone Motility, [facility] 1.2.840.114 [id number] Univers 00:00:00 00:00:00 Endoscopy ICAL 350.1.13.10 ity of [place] 4.2.7.2.686 Edward as BLDG [phone] [facility] [address] 2019-11-12 2019-11-12 Orders Doctor MARTHA 1.2.840.114 [id number] Univers 00:00:00 00:00:00 Only Unassigned, MELIZA 350.1.13.10 ity of [place] [facility] 4.2.7.2.686 Edward as [phone] [facility] [address] 2019-11-08 2019-11-08 Urgent Jeffrey Ko [facility] 1.2.840.11 [id number] Univers 18:44:29 18:59:29 Care Unknown, Attending Health 350.1.13.10 ity of Surgical 4.2.7.2.686 [place] as Specialti [phone] Wy dical es 370 [facility] 2019-11-06 2019-11-06 Telephone Motility, [facility] 1.2.840.114 [id number] Univers 00:00:00 00:00:00 Endoscopy ICAL 350.1.13.10 ity of [place] 4.2.7.2.686 Edward as BLDG [phone] [address] 2019-11-04 2019-11-04 Telephone Motility, [facility] 1.2.840.114 [id number] Univers 00:00:00 00:00:00 Endoscopy ICAL 350.1.13.10 ity of [place] 4.2.7.2.686 Edward as BLDG [phone] [address] 2019-10-30 2019-10-30 Office Evelio [facility] 1.2.840.114 [id number] Univers 09:26:55 10:26:49 Visit Wondiful A Health 350.1.13.10 ity of [place] 4.2.7.2.686 Edward as Professio [phone] [address] One 2019-10-30 2019-10-30 Case [facility] 1.2.840.114 [id number] Univers 00:00:00 00:00:00 Management [facility] Health 350.1.13.10 ity of [place] 4.2.7.2.686 Edward as Professio [phone] [address] One 2019-10-30 2019-10-30 Refill [facility] 1.2.840.114 [id number] Univers 00:00:00 00:00:00 Wondiful A Health 350.1.13.10 ity of [place] 4.2.7.2.686 Edward as Professio [phone] [address] One 2019-10-21 2019-10-21 Telephone Motility, [facility] 1.2.840.114 [id number] Univers 00:00:00 00:00:00 Endoscopy ICAL 350.1.13.10 ity of [place] 4.2.7.2.686 Edward as BLDG [phone] [address] 2019-10-09 2019-10-09 Telephone Motility, [facility] 1.2.840.114 [id number] Univers 00:00:00 00:00:00 Endoscopy ICAL 350.1.13.10 ity of [place] 4.2.7.2.686 Edward as BLDG [phone] [address] 2019-08-27 2019-08-27 Outpatient R EVELIO [facility] [id number] Univers 09:22:45 23:59:00 WONDIFUL ity o f [facility] 2019-06-06 2019-06-06 Prep For Lakshmi [facility] 1.2.840.114 [id number] Univers 00:00:00 00:00:00 Surgery Francisca Shah Adam 350.1.13.10 [place] of [place] [phone] Wy dical nal 204 [facility] 2019-06-05 2019-06-05 Office Jacob [facility] 1.2.241.409 [id number] Univers 12:56:30 14:21:14 Visit Crystal Adam 350.1.13.10 i ty of [place]2.[place].2.[place] [phone] Wy dical nal 377 [facility] 2019-06-05 2019-06-05 Orders Doctor MARTHA 1.2.840.114 [id number] Univers 00:00:00 00:00:00 Only Unassigned, MELIZA 350.1.13.10 ity of [place] [facility] 4.2.7.2.686 Edward as [phone] [address] 2019-06-02 2019-06-02 [facility]ly [facility] 1.2.840.114 [id number] Univers 18:45:00 23:59:00 Encounter [facility] 350.1.13.10 ity of Surgical 4.2.7.2.686 Edward as Specialti [phone] Wy dical es 808 [facility] 2019-06-02 2019-06-02 Urgent [facility] 1.2.840.114 [id number] Univers 18:15:15 19:44:45 Care Unknown, Attending Health 350.1.13.10 ity of Surgical 4.2.7.2.686 Edward as Specialti [phone] Wy dical es 370 [facility] 2019-06-02 2019-06-02 Formerly [facility] 1.2.840.114 [id number] Univers 18:40:00 18:44:00 Encounter [facility] 350.1.13.10 ity of Surgical 4.2.7.2.686 Edward as Specialti [phone] Wy dical es 808 [facility] 2019-06-02 2019-06-02 Telephone [facility] 1.2.840.114 [id number] Univers 00:00:00 00:00:00 Wondiful A Health 350.1.13.10 ity of [place] 4.2.7.2.686 Edward as Professio [phone] Wy dicnv nal [address] Office [address] One 2019-05-25 2019-05-25 Orders Doctor MARTHA 1.2.840.114 [id number] Univers 00:00:00 00:00:00 Only Unassigned, MELIZA 350.1.13.10 ity of [place] [facility] 4.2.7.2.686 Edward as [phone] [address] 2019-04-25 2019-04-25 Office [facility] 1.2.840.114 [id number] [facility] 13:05:24 14:13:17 Visit Wondiful A Health 350.1.13.10 ity of [place] 4.2.7.2.686 Edward as Professio [phone] [facility] nal [address] Office [facility] One 2019-04-25 2019-04-25 Orders Doctor MARTHA 1.2.840.114 [id number] Univers 00:00:00 00:00:00 Only Unassigned, MELIZA 350.1.13.10 ity of [place] [facility] 4.2.7.2.686 Edward as [phone] [address] 2019-04-16 2019-04-16 Orders Doctor MARTHA 1.2.840.114 [id number] Univers 00:00:00 00:00:00 Only Unassigned, MELIZA 350.1.13.10 ity of [place] [facility] 4.2.7.2.686 Edward as [phone] [address] Results Test Description Test Time Test Comments Results Result Comments Source Pulmonary function tests, complete 2022-02-15 20:05:39 Test Item Value Reference Range Interpretation Comme nts VC Pre (test code = 5374) 1.14 L 1.39-2.57 VC Predicted (test code = 5372) VC LLN (test code = 5373) VC % Pre of Predicted (test 57.7 % code = 5375) TLC Pre (test code = 5416) 3.17 L 3.11-5.09 TLC Predicted (test code = 5414) TLC LLN (test code = 5415) TLC % Pre of Predicted (test 77.4 % code = 5417) RV Pre (test code = 5402) 2.03 L 1.43-2.58 RV Predicted (test code = 5400) RV LLN (test code = 5401) RV % Pre of Predicted (test 101 % code = 5403) RV % TLC Pre (test code = 63.97 % 36.91-56.09 5409) RV % TLC Predicted (test code = 5407) RV % TLC LLN (test code = 5408) RV % TLC % Pre of Predicted 137.6 % (test code = 5410) R0.5IN Pre (test code = 5514) See_Comment [Automated message] The system which generated this result transmitted ref erence range: 3.06 - 3.06 cmH 2O*s/L. The reference range was not used to interpret this result as normal/abnormal . R0.5IN Predicted (test code = 5512) R0.5IN LLN (test code = 5513) R0.5IN % Pre of Predicted 131.7 % (test code = 5515) FRCpl Pre (test code = 5388) 2.47 L 1.62-3.26 FRCpl % Predicted (test code = 5386) FRCpl % LLN (test code = 5387) FRCpl % Pre of Predicted 101.2 % (test code = 5389) ERV Pre (test code = 5381) 0.44 L 0.43-0.43 ERV Predicted (test code = 5379) ERV LLN (test code = 5380) ERV % Pre of Predicted (test 101.9 % code = 5382) IC Pre (test code = 5395) 0.71 L 1.33-1.33 IC Predicted (test code = 5393) IC LLN (test code = 5394) IC % Pre of Predicted (test 53 % code = 5396) sR0.5IN Pre (test code = cmH2O*s 5521) Raw Pre (test code = 5507) See_Comment [Automated message] The system which generated this result transmitted ref erence range: 3.06 - 3.06 cmH 2O*s/L. The reference range was not used to interpret this result as normal/abnormal . Raw Predicted (test code = 5505) Raw LLN (test code = 5506) Raw % Pre of Predicted (test 338.4 % code = 5508) sGaw Predicted (test code = See_Comment [Automated message] The system 5528) which generated this result transmitted ref erence range: 0.10 - 0.10 1/( cmH2O*s). The reference range was not used to interpret this result as normal/abnormal . sGaw Predicted (test code = 5526) sGaw LLN (test code = 5527) sGaw % Pre of Predicted (test 35.8 % code = 5529) FEV1 Pre (test code = 5348) 0.93 L 0.95-1.95 FEV1 Predicted (test code = 5302) FEV1 LLN (test code = 5347) FEV1 % Pre of Predicted (test 64.4 % code = 5308) FVC Pre (test code = 5354) 1.33 L 1.39-2.57 FVC Predicted (test code = 5307) FVC LLN (test code = 5353) FVC % Pre of Predicted (test 67.3 % code = 5355) FEV1/FVC % Pre (test code = 70.06 % 63.80-83.39 5361) FEV1/FVC % Predicted (test code = 5359) FEV1/FVC % LLN (test code = 5360) FEV1/FVC % Pre of Predicted 95.2 % (test code = 5362) FEF 25-75% Pre (test code = 0.91 L/s 0.03-2.13 5547) FEF 25-75% Predicted (test code = 5546) FEF 25-75% LLN (test code = 5545) FEF 25-75% % Pre of Predicted 84.4 % (test code = 5548) PEF Pre (test code = 5367) 3.56 L/s 2.50-5.41 PEF Predicted (test code = 5310) PEF LLN (test code = 5366) PEF % Pre of Predicted (test 90.1 % code = 5368) MVV Pre (test code = 5590) 30.5 L/min 44.01-59.55 MVV Predicted (test code = 5544) MVV LLN (test code = 5543) MVV % Pre of Predicted (test 58.9 % code = 5587) [id number] 20:05:39 Test Item Value Reference Range Interpretation Comments VC Pre (test code = 1.14 L 1.39-2.57 5374) VC Predicted (test code = 5372) VC LLN (test code = 5373) VC % Pre of Predicted 57.7 % (test code = 5375) TLC Pre (test code = 3.17 L 3.11-5.09 5416) TLC Predicted (test code = 5414) TLC LLN (test code = 5415) TLC % Pre of 77.4 % Predicted (test code = 5417) RV Pre (test code = 2.03 L 1.43-2.58 5402) RV Predicted (test code = 5400) RV LLN (test code = 5401) RV % Pre of Predicted 101 % (test code = 5403) RV % TLC Pre (test 63.97 % 36.91-56.09 code = 5409) RV % TLC Predicted (test code = 5407) RV % TLC LLN (test code = 5408) RV % TLC % Pre of 137.6 % Predicted (test code = 5410) R0.5IN Pre (test code See_Comment [Auto mated message] = 5514) The system [employer] [place] generated this result transmitted ref erence range: 3.06 - 3 .06 cmH2O*s/L. The reference range was not used to int erpret this result as normal/abnormal . R0.5IN Predicted (test code = 5512) R0.5IN LLN (test code = 5513) R0.5IN % Pre of 131.7 % Predicted (test code = 5515) FRCpl Pre (test code 2.47 L 1.62-3.26 = 5388) FRCpl % Predicted (test code = 5386) FRCpl % LLN (test code = 5387) FRCpl % Pre of 101.2 % Predicted (test code = 5389) ERV Pre (test code = 0.44 L 0.43-0.43 5381) ERV Predicted (test code = 5379) ERV LLN (test code = 5380) ERV % Pre of 101.9 % Predicted (test code = 5382) IC Pre (test code = 0.71 L 1.33-1.33 5395) IC Predicted (test code = 5393) IC LLN (test code = 5394) IC % Pre of Predicted 53 % (test code = 5396) sR0.5IN Pre (test cmH2O*s code = 5521) Raw Pre (test code = See_Comment [Autom ated message] 5507) The system [employer] [place] generated this result transmitted ref erence range: 3.06 - 3 .06 cmH2O*s/L. The reference range was not used to int erpret this result as normal/abnormal . Raw Predicted (test code = 5505) Raw LLN (test code = 5506) Raw % Pre of 338.4 % Predicted (test code = 5508) sGaw Predicted (test See_Comment [Autom ated message] code = 5528) The system [employer] generated this result transmitted ref erence range: 0.10 - 0 .10 1/(cmH2O*s). Th e reference range was not used to int erpret this result as normal/abnormal . sGaw Predicted (test code = 5526) sGaw LLN (test code = 5527) sGaw % Pre of 35.8 % Predicted (test code = 5529) FEV1 Pre (test code = 0.93 L 0.95-1.95 5348) FEV1 Predicted (test code = 5302) FEV1 LLN (test code = 5347) FEV1 % Pre of 64.4 % Predicted (test code = 5308) FVC Pre (test code = 1.33 L 1.39-2.57 5354) FVC Predicted (test code = 5307) FVC LLN (test code = 5353) FVC % Pre of 67.3 % Predicted (test code = 5355) FEV1/FVC % Pre (test 70.06 % 63.8-83.39 code = 5361) FEV1/FVC % Predicted (test code = 5359) FEV1/FVC % LLN (test code = 5360) FEV1/FVC % Pre of 95.2 % Predicted (test code = 5362) FEF 25-75% Pre (test 0.91 L/s 0.03-2.13 code = 5547) FEF 25-75% Predicted (test code = 5546) FEF 25-75% LLN (test code = 5545) FEF 25-75% % Pre of 84.4 % Predicted (test code = 5548) PEF Pre (test code = 3.56 L/s 2.5-5.41 5367) PEF Predicted (test code = 5310) PEF LLN (test code = 5366) PEF % Pre of 90.1 % Predicted (test code = 5368) MVV Pre (test code = 30.5 L/min 44.01-59.55 5590) MVV Predicted (test code = 5544) MVV LLN (test code = 5543) MVV % Pre of 58.9 % Predicted (test code = 5587) [facility]NfpsntcuORTLFSVOYZ5907-66-63 19:42:00 Test Item Value Reference Range Interpretation Comments Coronavirus (COVID-19) Not Detected MAURA (test code = *NA*(11/01/21 1:42 PM) Coronavirus (COVID-19) MAURA) [facility] HospitalZnzucqcUZTELLWOMV8644-41-71 19:42:00 Test Item Value Reference Range Interpretation Comments Coronavirus (COVID-19) Not Detected MAURA (test code = *NA*(11/01/21 1:42 PM) Coronavirus (COVID-19) MAURA) [facility] HospitalLipid Panel With LDL/HDL [id number] 00:00:00 Test Item Value Reference Range Interpretation Comments Cholesterol, Total (test code = 2093-3) 282 100-199 Triglycerides (test code = 2571-8) 190 0-149 HDL Cholesterol (test code = 2085-9) 55 >39 Thyroid Panel With [id number] 00:00:00 Test Item Value Reference Range Interpretation Comments TSH (test code = 91145-1) 6.260 0.450-4.500 Thyroxine (T4) (test code = 3026-2) 5.4 4.5-12.0 T3 Uptake (test code = 3050-2) 28 24-39 Free Thyroxine Index (test code = 1.5 1.2-4.9 99646-0) Microalbumin/Creat Ratio, Random [id number] 00:00:00 Test Item Value Reference Range Interpretation Comments Creatinine, Urine (test code = 2161-8) 99.9 Not Estab. Albumin, Urine (test code = 41175-3) 487.3 Not Estab. Alb/Creat Ratio (test code = 98945-0) 488 0-29 Hemoglobin [id number] 00:00:00 Test Item Value Reference Range Interpretation Comments Hemoglobin A1c (test code = 4548-4) 6.7 4.8-5.6 Comp. Metabolic Panel (14) (CMP)2021-08-09 00:00:00 Test Item Value Reference Range Interpretation Comments Glucose (test code = 2345-7) 159 65-99 BUN (test code = 3094-0) 28 8-27 Creatinine (test code = 2160-0) 1.30 0.57-1.00 eGFR If NonAfricn Am (test code = 39 >59 99528-6) eGFR If Africn Am (test code = 51404-7) 45 >59 BUN/Creatinine Ratio (test code = 09-13 3097-3) Sodium (test code = 2951-2) 138 134-144 Potassium (test code = 2823-3) 4.7 3.5-5.2 Chloride (test code = 2075-0) 98 96-106 Carbon Dioxide, Total (test code = 25 -2028-05) Calcium (test code = 71023-6) 9.8 8.7-10.3 Protein, Total (test code = 2885-2) 6.6 6.0-8.5 Albumin (test code = 1751-7) 4.1 3.7-4.7 Globulin, Total (test code = 75376-8) 2.5 1.5-4.5 A/G Ratio (test code = 1759-0) 1.6 1.2-2.2 Bilirubin, Total (test code = 1974-2) 0.3 0.0-1.2 Alkaline Phosphatase (test code = 74 44-121 6768-6) AST (SGOT) (test code = 1920-8) 15 0-40 ALT (SGPT) (test code = 1742-6) 16 0-32 CBC With Differential/Vuokiwma6217-15-22 00:00:00 Test Item Value Reference Range Interpretation Comments WBC (test code = 6690-2) 5.8 3.4-10.8 RBC (test code = 789-8) 4.57 3.77-5.28 Hemoglobin (test code = 718-7) 11.8 11.1-15.9 Hematocrit (test code = 4544-3) 36.4 34.0-46.6 MCV (test code = 787-2) 80 79-97 MCH (test code = 785-6) 25.8 26.6-33.0 MCHC (test code = 786-4) 32.4 31.5-35.7 RDW (test code = 788-0) 13.4 11.7-15.4 Platelets (test code = 777-3) 269 150-450 Neutrophils (test code = 770-8) 47 Not Estab. Lymphs (test code = 736-9) 34 Not Estab. Monocytes (test code = 5905-5) 10 Not Estab. Eos (test code = 713-8) 8 Not Estab. Basos (test code = 706-2) 1 Not Estab. Immature Cells (test code = UNLOINC) Neutrophils (Absolute) (test code = 2.8 1.4-7.0 751-8) Lymphs (Absolute) (test code = 731-0) 1.9 0.7-3.1 Monocytes(Absolute) (test code = 742-7) 0.6 0.1-0.9 Eos (Absolute) (test code = 711-2) 0.4 0.0-0.4 Baso (Absolute) (test code = 704-7) 0.0 0.0-0.2 Immature Granulocytes (test code = 0 Not Estab. 09962-9) Immature Grans (Abs) (test code = 0.0 0.0-0.1 75260-9) NRBC (test code = 84599-3) Hematology Comments: (test code = 53607-5) FOJDPDWMND3501-62-18 15:34:00 Test Item Value Reference Range Interpretation Comments Lymphocytes # (test code = Lymphocytes 2.8 1.0-5.5 #) [facility]NnmznfpVUDKAMKUBP2949-44-28 15:34:00 Test Item Value Reference Range Interpretation Comments Monocytes # (test code 0.5 See_Comment [Aut omated message] The = Monocytes #) system which generated this result tra nsmitted reference range : <=0.8. The reference r dayana was not used to int erpret this result as normal/abnormal . [facility] ParkwayPqvadplHGFWXSMCEF5997-16-89 15:34:00 Test Item Value Reference Range Interpretation Comments Eosinophils # (test code 0.3 See_Comment [A utomated message] The = Eosinophils #) system whic h generated this result tra nsmitted reference range : <=0.5. The reference r dayana was not used to int erpret this result as normal/abnormal . [facility] ParkwayZdtbksqXOQDFJJPTH2730-63-34 15:34:00 Test Item Value Reference Range Interpretation Comments WBC (test code = WBC) 7.0 3.7-10.4 [place] 277271-06-04 15:34:00 Test Item Value Reference Range Interpretation Comments RBC (test code = RBC) 4.83 4.20-5.40 [place] 277271-06-04 15:34:00 Test Item Value Reference Range Interpretation Comments Hgb (test code = Hgb) 12.7 12.0-16.0 [place] 277271-06-04 15:34:00 Test Item Value Reference Range Interpretation Comments Hct (test code = Hct) 38.3 36.0-48.0 [place] 277271-06-04 15:34:00 Test Item Value Reference Range Interpretation Comments MCV (test code = MCV) 79.3 80.0-98.0 [place] 277271-06-04 15:34:00 Test Item Value Reference Range Interpretation Comments MCH (test code = MCH) 26.3 pg 27.0-31.0 [place] 277271-06-04 15:34:00 Test Item Value Reference Range Interpretation Comments MCHC (test code = MCHC) 33.1 32.0-36.0 [place] 277271-06-04 15:34:00 Test Item Value Reference Range Interpretation Comments RDW (test code = RDW) 15.1 11.5-14.5 [place] 277271-06-04 15:34:00 Test Item Value Reference Range Interpretation Comments Platelet (test code = Platelet) 289 133-450 [facility] HospitalGupneziWJBWDCBLNE2063-29-24 15:34:00 Test Item Value Reference Range Interpretation Comments MPV (test code = MPV) 8.1 7.4-10.4 [facility] HospitalQhkqsysKCHBUEGELH5170-62-33 15:34:00 Test Item Value Reference Range Interpretation Comments PT (test code = PT) 13.1 s 12.0-14.7 [facility] HospitalHyupkraKPYCSNPXJT8350-58-10 15:34:00 Test Item Value Reference Range Interpretation Comments INR (test code = INR) 1.00 1 0.85-1.17 [facility]RDKUTVTABJ9176[facility] 15:34:00 Test Item Value Reference Range Interpretation Comments PTT (test code = PTT) 28.7 s 22.9-35.8 [facility] HospitalRvzdojkIDUPSTGMBC8693-91-36 15:34:00 Test Item Value Reference Range Interpretation Comments Coronavirus (COVID-19) Not Detected (02/18/21 MAURA (test code = 10:34 AM) Coronavirus (COVID-19) MAURA) [facility]manOcrodlzAKBLLPIVLW0831-98-64 15:34:00 Test Item Value Reference Range Interpretation Comments Monocytes # (test code 0.5 See_Comment [Aut omated message] The = Monocytes #) system which generated this result tra nsmitted reference range : <=0.8. The reference r dayana was not used to int erpret this result as normal/abnormal . [facility] OCIMLAKUC2157-22-43 15:34:00 Test Item Value Reference Range Interpretation Comments Hgb A1C (test code = Hgb A1C) 5.9 [facility] Nomi PEOHYWN2043-19-17 15:34:00 Test Item Value Reference Range Interpretation Comments ABO/Rh (test code = ABO/Rh) O POS [facility] Nomi UXZCTCY2366-55-08 15:34:00 Test Item Value Reference Range Interpretation Comments Antibody Scrn (test Negative (02/18/21 10:34 code = Antibody Scrn) AM) [facility] [employer] HPZQX1106-17-92 15:34:00 Test Item Value Reference Range Interpretation Comments Glucose Lvl (test code = Glucose Lvl) 111 70-99 [facility] [employer] NUNLP9476-91-64 15:34:00 Test Item Value Reference Range Interpretation Comments BUN (test code = BUN) 21 7-22 [facility]2021-06-04 15:34:00 Test Item Value Reference Range Interpretation Comments Creatinine Lvl (test code = Creatinine 1.32 0.50-1.40 Lvl) [facility]wayNlceyasYFCYGUGAMR1942-58-84 15:34:00 Test Item Value Reference Range Interpretation Comments Eosinophils # (test code 0.3 See_Comment [A utomated message] The = Eosinophils #) system whic h generated this result tra nsmitted reference range : <=0.5. The reference r dayana was not used to int erpret this result as normal/abnormal . [facility]2021-06-04 15:34:00 Test Item Value Reference Range Interpretation Comments Sodium Lvl (test code = Sodium Lvl) 139 135-145 [facility]2021-06-04 15:34:00 Test Item Value Reference Range Interpretation Comments Potassium Lvl (test code = Potassium 4.4 3.5-5.1 Lvl) [facility]2021-06-04 15:34:00 Test Item Value Reference Range Interpretation Comments Chloride Lvl (test code = Chloride Lvl) 107 95-109 [facility]2021-06-04 15:34:00 Test Item Value Reference Range Interpretation Comments CO2 (test code = CO2) 27 24-32 [place] 383491-06-04 15:34:00 Test Item Value Reference Range Interpretation Comments Calcium Lvl (test code = Calcium Lvl) 9.1 8.5-10.5 [place] 383491-06-04 15:34:00 Test Item Value Reference Range Interpretation Comments Total Protein (test code = Total 7.7 6.4-8.4 Protein) [facility]2021-06-04 15:34:00 Test Item Value Reference Range Interpretation Comments Albumin Lvl (test code = Albumin Lvl) 4.0 3.5-5.0 [place] 383491-06-04 15:34:00 Test Item Value Reference Range Interpretation Comments ALT (test code = ALT) 24 See_Comment [Auto mated message] The system which ge nerated this result transmit cesar reference range : <=65. The reference range was not used to interpr et this result as aman l/abnormal. [place] 383491-06-04 15:34:00 Test Item Value Reference Range Interpretation Comments AST (test code = AST) 19 See_Comment [Auto mated message] The system which ge nerated this result transmit cesar reference range : <=37. The reference range was not used to interpr et this result as aman l/abnormal. [facility] HospitalSpero Therapeutics [id number] 15:34:00 Test Item Value Reference Range Interpretation Comments Alk Phos (test code = Alk Phos) 64 39-136 [facility] [id number] 15:34:00 Test Item Value Reference Range Interpretation Comments Bili Total (test code = Bili Total) 0.4 0.2-1.3 [place] 383491-06-04 15:34:00 Test Item Value Reference Range Interpretation Comments AGAP (test code = AGAP) 9.4 10.0-20.0 [facility] HospitalS[facility] [id number] 15:34:00 Test Item Value Reference Range Interpretation Comments B/C Ratio (test code = B/C Ratio) 16 1 6-25 [facility] HospitalS[facility] [id number] 15:34:00 Test Item Value Reference Range Interpretation Comments Globulin (test code = Globulin) 3.7 2.7-4.2 [facility] HospitalS[facility] [id number] 15:34:00 Test Item Value Reference Range Interpretation Comments A/G Ratio (test code = A/G Ratio) 1.1 1 0.7-1.6 [facility] HospitalS[facility] [id number] 15:34:00 Test Item Value Reference Range Interpretation Comments eGFR (test code = eGFR) 38 [place] 277271-06-04 15:34:00 Test Item Value Reference Range Interpretation Comments Segs (test code = Segs) 49.7 45.0-75.0 [place] [address]-06-04 15:34:00 Test Item Value Reference Range Interpretation Comments Lymphocytes (test code = Lymphocytes) 39.6 20.0-40.0 [place] [address]-06-04 15:34:00 Test Item Value Reference Range Interpretation Comments Monocytes (test code = Monocytes) 6.6 2.0-12.0 [facility] HospitalKwktbuoNGJNRMYXEX7153-52-77 15:34:00 Test Item Value Reference Range Interpretation Comments WBC (test code = WBC) 7.0 3.7-10.4 [place] 277271-06-04 15:34:00 Test Item Value Reference Range Interpretation Comments Eosinophils (test code = 3.6 See_Comment [A utomated message] The Eosinophils) system which ge nerated this result tra nsmitted reference range : <=4.0. The reference r dayana was not used to int erpret this result as normal/abnormal . [place] 277271-06-04 15:34:00 Test Item Value Reference Range Interpretation Comments Basophils (test code = 0.5 See_Comment [Aut omated message] The Basophils) system which ge nerated this result tra nsmitted reference range : <=1.0. The reference r dayana was not used to int erpret this result as normal/abnormal . [place] 277271-06-04 15:34:00 Test Item Value Reference Range Interpretation Comments Neutrophils # (test code = Neutrophils 3.5 1.5-8.1 #) [place] 277271-06-04 15:34:00 Test Item Value Reference Range Interpretation Comments Lymphocytes # (test code = Lymphocytes 2.8 1.0-5.5 #) [place] 277271-06-04 15:34:00 Test Item Value Reference Range Interpretation Comments RBC (test code = RBC) 4.83 4.20-5.40 [place] 277271-06-04 15:34:00 Test Item Value Reference Range Interpretation Comments Hgb (test code = Hgb) 12.7 12.0-16.0 [place] [address]-06-04 15:34:00 Test Item Value Reference Range Interpretation Comments Hct (test code = Hct) 38.3 36.0-48.0 [place] [address]-06-04 15:34:00 Test Item Value Reference Range Interpretation Comments MCV (test code = MCV) 79.3 80.0-98.0 [place] [address]-06-04 15:34:00 Test Item Value Reference Range Interpretation Comments MCH (test code = MCH) 26.3 pg 27.0-31.0 [place] [address]-06-04 15:34:00 Test Item Value Reference Range Interpretation Comments MCHC (test code = MCHC) 33.1 32.0-36.0 [facility] HospitalYygeoguHAUSPYIBQS6344-55-60 15:34:00 Test Item Value Reference Range Interpretation Comments RDW (test code = RDW) 15.1 11.5-14.5 [facility] HospitalJzdliipCFREKTPJQB8373-19-53 15:34:00 Test Item Value Reference Range Interpretation Comments Platelet (test code = Platelet) 289 133-450 [facility] ParkwayNgbmqzuADIXQMGGLM3007-24-54 15:34:00 Test Item Value Reference Range Interpretation Comments MPV (test code = MPV) 8.1 7.4-10.4 [facility] HospitalWdavgmgTNUOUDJPXW6682-76-84 15:34:00 Test Item Value Reference Range Interpretation Comments PT (test code = PT) 13.1 s 12.0-14.7 [facility] HospitalJnceqgnJIURXHBPBC9046-51-46 15:34:00 Test Item Value Reference Range Interpretation Comments INR (test code = INR) 1.00 1 0.85-1.17 [facility] HospitalGqvvwgwYYOLUXBPSJ9120-69-43 15:34:00 Test Item Value Reference Range Interpretation Comments PTT (test code = PTT) 28.7 s 22.9-35.8 [facility] HospitalWguqywrSHNOXIWGVO5439-07-90 15:34:00 Test Item Value Reference Range Interpretation Comments Coronavirus (COVID-19) Not Detected (02/18/21 MAURA (test code = 10:34 AM) Coronavirus (COVID-19) MAURA) [facility] IHUUGGXCU4515-92-36 15:34:00 Test Item Value Reference Range Interpretation Comments Hgb A1C (test code = Hgb A1C) 5.9 [facility] [id number] 15:34:00 Test Item Value Reference Range Interpretation Comments ABO/Rh (test code = ABO/Rh) O POS [facility] AOUEWJL3410-07-50 15:34:00 Test Item Value Reference Range Interpretation Comments Antibody Scrn (test Negative (02/18/21 10:34 code = Antibody Scrn) AM) [facility] HospitalS[facility]rapeutics [id number] 15:34:00 Test Item Value Reference Range Interpretation Comments Glucose Lvl (test code = Glucose Lvl) 111 70-99 [facility] [id number] 15:34:00 Test Item Value Reference Range Interpretation Comments BUN (test code = BUN) 21 7-22 [place] 383491-06-04 15:34:00 Test Item Value Reference Range Interpretation Comments Creatinine Lvl (test code = Creatinine 1.32 0.50-1.40 Lvl) [place] 383491-06-04 15:34:00 Test Item Value Reference Range Interpretation Comments Sodium Lvl (test code = Sodium Lvl) 139 135-145 [place] 383491-06-04 15:34:00 Test Item Value Reference Range Interpretation Comments Potassium Lvl (test code = Potassium 4.4 3.5-5.1 Lvl) [place] 383491-06-04 15:34:00 Test Item Value Reference Range Interpretation Comments Chloride Lvl (test code = Chloride Lvl) 107 95-109 [place] 383491-06-04 15:34:00 Test Item Value Reference Range Interpretation Comments CO2 (test code = CO2) 27 24-32 [place] 383491-06-04 15:34:00 Test Item Value Reference Range Interpretation Comments Calcium Lvl (test code = Calcium Lvl) 9.1 8.5-10.5 [place] 383491-06-04 15:34:00 Test Item Value Reference Range Interpretation Comments Total Protein (test code = Total 7.7 6.4-8.4 Protein) [place] 383491-06-04 15:34:00 Test Item Value Reference Range Interpretation Comments Albumin Lvl (test code = Albumin Lvl) 4.0 3.5-5.0 [place] 383491-06-04 15:34:00 Test Item Value Reference Range Interpretation Comments ALT (test code = ALT) 24 See_Comment [Auto mated message] The system which ge nerated this result transmit cesar reference range : <=65. The reference range was not used to interpr et this result as aman l/abnormal. [place] 383491-06-04 15:34:00 Test Item Value Reference Range Interpretation Comments AST (test code = AST) 19 See_Comment [Auto mated message] The system which ge nerated this result transmit cesar reference range : <=37. The reference range was not used to interpr et this result as aman l/abnormal. [place] 383491-06-04 15:34:00 Test Item Value Reference Range Interpretation Comments Alk Phos (test code = Alk Phos) 64 39-136 [place] 383491-06-04 15:34:00 Test Item Value Reference Range Interpretation Comments Bili Total (test code = Bili Total) 0.4 0.2-1.3 [place] 383491-06-04 15:34:00 Test Item Value Reference Range Interpretation Comments AGAP (test code = AGAP) 9.4 10.0-20.0 [place] 383491-06-04 15:34:00 Test Item Value Reference Range Interpretation Comments B/C Ratio (test code = B/C Ratio) 16 1 6-25 [place] 383491-06-04 15:34:00 Test Item Value Reference Range Interpretation Comments Globulin (test code = Globulin) 3.7 2.7-4.2 [place] 383491-06-04 15:34:00 Test Item Value Reference Range Interpretation Comments A/G Ratio (test code = A/G Ratio) 1.1 1 0.7-1.6 [place] 383491-06-04 15:34:00 Test Item Value Reference Range Interpretation Comments eGFR (test code = eGFR) 38 [place] 277271-06-04 15:34:00 Test Item Value Reference Range Interpretation Comments Segs (test code = Segs) 49.7 45.0-75.0 [place] 277271-06-04 15:34:00 Test Item Value Reference Range Interpretation Comments Lymphocytes (test code = Lymphocytes) 39.6 20.0-40.0 [place] [address]-06-04 15:34:00 Test Item Value Reference Range Interpretation Comments Monocytes (test code = Monocytes) 6.6 2.0-12.0 [place] [address]-06-04 15:34:00 Test Item Value Reference Range Interpretation Comments Eosinophils (test code = 3.6 See_Comment [A utomated message] The Eosinophils) system which ge nerated this result tra nsmitted reference range : <=4.0. The reference r dayana was not used to int erpret this result as normal/abnormal . [place] 277271-06-04 15:34:00 Test Item Value Reference Range Interpretation Comments Basophils (test code = 0.5 See_Comment [Aut omated message] The Basophils) system which ge nerated this result tra nsmitted reference range : <=1.0. The reference r dayana was not used to int erpret this result as normal/abnormal . [facility]wayEeirbbfXXAYLRZTGM7322-38-08 15:34:00 Test Item Value Reference Range Interpretation Comments Neutrophils # (test code = Neutrophils 3.5 1.5-8.1 #) [facility] [id number] 22:03:42 Test Item Value Reference Range Interpretation Comments IRON (test code = 3409655215) 80 ug/dL 50-160 TIBC (test code = 5308307341) 386 ug/dL 250-410 % FE SAT (test code = 5965723768) 21 % 20-50 Lab Interpretation (test code = Normal 48329-4) [facility] (A1C)2021-01-26 17:18:15 Test Item Value Reference Range Interpretation Comments HGB A1C (test code = 6.0 % 4.0-5.7 H 4548-4) KANU (test code = KANU) Reference RangesNormal: <5.7%Prediabetes: 5.7 - 6.4%Diabetes: > 6.5% Lab Interpretation (test Abnormal code = 12761-5) [facility] CenterFERRITIN [id number] 17:13:28 Test Item Value Reference Range Interpretation Comments FERRITIN (test code = 13.0 ng/mL 11.0-264.0 0002657326) KANU (test code = KANU) Biotin has been reported to cause a negative bias, interpret results relative to patient's use of biotin. Lab Interpretation (test Normal code = 42754-0) [facility] CenterTHYROID STIMULATING VNDSYMS8410-03-26 17:09:08 Test Item Value Reference Range Interpretation Comments TSH (test code = See_Comment [Automated message] [id number]) The system whic h generated this result transmitted ref erence range: 0.45 - 4 .70 mIU/L. The refe rence range was not u sed to interpret this result as normal/abnor mal. Lab Interpretation (test Normal code = 90793-8) [facility] CenterCOMP. [facility]OLIC PANEL (34585)2021-01-26 16:38:01 Test Item Value Reference Range Interpretation Comments NA (test code = 138 mmol/L 135-145 0104303014) K (test code = 5.2 mmol/L 3.5-5.0 H 8166027469) CL (test code = 103 mmol/L 98-108 4228591138) CO2 TOTAL (test code = 25 mmol/L 23-31 8043466128) AGAP (test code = 2-16 0350170421) BUN (test code = 23 mg/dL 7-23 7786004512) GLUCOSE (test code = 122 mg/dL 70-110 H 1459805120) CREATININE (test code = 1.15 mg/dL 0.50-1.04 H 8277410271) TOTAL BILI (test code = 0.6 mg/dL 0.1-1.3 9860302375) CALCIUM (test code = 9.5 mg/dL 8.6-10.6 6402302418) T PROTEIN (test code = 6.9 g/dL 6.3-8.2 0180603774) ALBUMIN (test code = 4.4 g/dL 3.5-5.0 8929046529) ALK PHOS (test code = 61 U/L 34-122 3666482658) ALTv (test code = 18 U/L 5-35 1742-6) AST(SGOT) (test code = 36 U/L 13-40 5754668157) eGFR (test code = mL/min/1.73m2 2796364879) KANU (test code = KANU) Association of [...] tests). Lab Interpretation Abnormal (test code = 01831-9) [facility] CenterLIPID PANEL (62429)(TOTAL CHOLESTEROL, TRIGLYCERIDES, HDL)2021-01-26 16:38:01 Test Item Value Reference Range Interpretation Comments CHOL (test code = 229 mg/dL 120-200 H 5090282530) HDL (test code = 49 mg/dL >50 L 1148403013) HDLC RATIO (test code = See_Comment H [Au tomated message] 1734046686) The system [employer] generated this result transmit cesar reference range : <=4.5. The refe rence range was not u sed to interpret th is result as normal/abnormal . TRIG (test code = 165 mg/dL 30-170 9389636972) LDL CHOL (test code = 147 mg/dL See_Comment [Auto mated message] 76571-1) The system [employer] generated this result transmit cesar reference range : <=160. The refe rence range was not u sed to interpret th is result as normal/abnormal . VLDL (test code = 33 mg/dL 5-60 2779767557) Lab Interpretation (test Abnormal code = 18413-8) [facility] CenterCB WITHOUT [id number] 15:50:14 Test Item Value Reference Range Interpretation Comments WBC (test code = See_Comment [Automated message] The 6690-2) system which Vers[employer] nerated this result tra nsmitted reference range : 4.30 - 11.10 10*3/?L. The reference range was not used to interpr et this result as normal/abnormal . RBC (test code = See_Comment [Automated message] The 789-8) system which [employer] nerated this result tra nsmitted reference range [...] See_Comment [Automated message] The 777-3) system which Vers[employer] nerated this result tra nsmitted reference range : 166 - 358 10*3/?L. Th e reference range was not used to interpr et this result as normal/abnormal . MPV (test code = 10.5 fL 9.5-12.9 68538-9) RDW-CV (test code = 14.6 % 12.0-15.5 788-0) RDW-SD (test code = 43.4 fL 39.0-49.9 83031-7) NRBC x10^3 (test <0.01 See_Comment [Automated message] The code = 8394226024) system [facility] generated this result tra nsmitted reference range : 10*3/?L. The reference r dayana was not used to int erpret this result as normal/abnormal . NRBC/100 WBC (test See_Comment [Automat ed message] The code = 7624516432) system [facility] generated this result tra nsmitted reference range : 0.0 - 10.0 /100 WBCs. The reference range was not used to interpr et this result as normal/abnormal . IPF % (test code = 4569255579) [facility]CT [facility] P[facility] W [id number] 21:14:58 Colonic diverticulosis with sigmoid haustral edema [...] FINDINGS: LOWER THORAX: Minimal bandlike atelectasis. No pericardialeffusion orcardiomegaly. LIVER: Mildly enlarged measuring 18 cm in craniocaudal dimension withdiffuse hypoattenuation and normal contour. No focal hepatic lesion. GALLBLADDER & BILIARY TREE: The gallbladder is decompressed. Novisualized radiopaque cholelithiasis. PANCREAS: No focal lesion or ductal dilation. SPLEEN: No splenomegaly. ADRENALS: No adrenal nodules. KIDNEYS: Symmetric enhancement. Nohydronephrosis, focal lesion or stones. PELVIS/BLADDER: The bladder [...] TISSUES: No concerning bony lesion identified. Tinyumbilical fat-cont aining hernia. Changes of L5-S1 laminectomy. Moderatespondylotic changes [facility], Radiant Results Inft User - 11/14/2020 3:16 PM CSTCT ABDOMEN PELVIS W CONTRASTHISTORY: Diverticulitis suspected TECHNIQUE:Contrast-enhanced spiral CT of the abdomen and pelvis [...] multiple uterine fibroids with calcification and probable necroticdegenerationwith the largest probable pedunculated fibroid measuring 5.0cm [...] pericolic inflammatorystranding about a conspicuous diverticula (4:56). PERITONEUM/ RETROPERITONEUM: No free air or fluid.VASCULAR: Unremarkable. LYMPHATICS: No enlarged lymph nodes byCT size criteria.BONES AND SOFT TISSUES: No concerning bony lesion identified. Tinyumbilical fat-containing hernia. Changes of L5-S1 laminectomy. Moderatespondylotic changesIMPRESSIONColonic diverticulosis with sigmoid haustral edema and inflammatorystranding suggestive of uncomplicated diverticulitis.Enlarged leiomyomatous uterus with probable degeneration of fibroids.Distention of the endometrial cavity greater than expected relative to ageis indeterminate. Further evaluation with dedicated pelvicultrasound isrecommended on nonemergent outpatient basis.Changes of gastric banding with moderate size hiatal hernia.Hepatomegaly with steatosis.Preliminary Report Dictated by Resident: Sheeba Judd, Fidel Branch MD., have reviewed this study and agree withthe above report.[facility] CenterUrinalysis2021-02-28 20:07:00 Test Item Value Reference Range Interpretation Comments APPEARANCE (test code = Cloudy Clear A 4825584297) COLOR (test code = Shirlene Yellow A 4153650928) PH (test code = 4.8-8.0 1620934293) SP GRAVITY (test code = 1.003-1.030 7657575543) GLU U QUAL (test code = Normal Normal 9035177326) BLOOD (test code = Negative Negative 1945838178) KETONES (test code = Negative Negative 4945105348) PROTEIN (test code = 30 mg/dL Negative A 2887-8) UROBILIN (test code = Normal Normal 9893275697) BILIRUBIN (test code = Negative Negative 3499471653) NITRITE (test code = Negative Negative 0805420561) LEUK ULISES (test code = 75/uL Negative A 6840596247) RBC/HPF (test code = See_Comment H [Autom ated message] 4212597993) The system [employer] generated this result transmitted ref erence range: 0 - 3 HP F. The reference range was not used to int erpret this result as normal/abnormal . WBC/HPF (test code = See_Comment H [Autom ated message] 6933361286) The system [employer] generated this result transmitted ref erence range: 0 - 5 HP F. The reference range was not used to int erpret this result as normal/abnormal . BACTERIA (test code = Moderate Negative A 4007540030) MUCOUS (test code = Moderate Negative LPF A 1861432931) SQ EPITH (test code = HPF 7817622803) Lab Interpretation (test Abnormal code = 07152-1) [facility] [id number] 19:43:00 Test Item Value Reference Range Interpretation Comments TROPONIN I (test 0.002 ng/mL See_Comment [Automated code = 3426009900) message] The system which generated this result [...] ? Lab Interpretation Normal (test code = 55535-7) [facility] CenteraPTT2021-02-28 19:40:00 Test Item Value Reference Range Interpretation Comments APTT Patient (test See_Comment [Automat ed code = 3173-2) message] The system which generated this result transmitted reference range : 23 - 38 Seconds . The reference range was not used to interpr et this result as normal/abnormal . KANU (test code = KANU) The [facility] patient population mean normal value for aPTT is 30 seconds. Lab Interpretation Normal (test code = 49528-8) [facility] CenterProthrombin Time (PT) / [id number] 19:38:00 Test Item Value Reference Range Interpretation [...] tions. Lab Interpretation (test Normal code = 71527-0) [facility] CenterBasi Metabolic Panel (NA, K, CL, CO2, GLUCOSE, BUN, CREATININE, CA)2020-11-14 19:32:00 Test Item Value Reference Range Interpretation Comments NA (test code = 136 mmol/L 135-145 8452794531) K (test code = 4.2 mmol/L 3.5-5 2997998427) CL (test code = 103 mmol/L 98-108 5124961862) CO2 TOTAL (test code = 25 mmol/L 23-31 1212291563) AGAP (test code = 2-16 6559211088) BUN (test code = 20 mg/dL 04-08479) GLUCOSE (test code = 148 mg/dL 70-110 H 8223254745) CREATININE (test code = 1.16 mg/dL 0.5-1.04 H 0562472314) CALCIUM (test code = 9.0 mg/dL 8.6-10.6 6824589623) eGFR Calculation mL/min/1.73m2 (Non-) (test code = 7748588419) eGFR Calculation mL/min/1.73m2 () (test code = 6931641810) KANU (test code = KANU) Association of [...] tests). Lab Interpretation Abnormal (test code = 08764-9) [facility] CenterHepatic Function Panel (ALB, T.PRO, BILI T, BU/BC, ALT, AST, ALK PHOS)2020-11-14 19:32:00 Test Item Value Reference Range Interpretation Comments TOTAL BILI (test code = 2472967478) 0.6 mg/dL 0.1-1.1 BILI UNCON (test code = 6079968720) 0.5 mg/dL 0.1-1.1 BILI CONJ (test code = 0563562051) 0.0 mg/dL 0-0.3 T PROTEIN (test code = 4384218263) 6.9 g/dL 6.3-8.2 ALBUMIN (test code = 2714669307) 4.1 g/dL 3.5-5 ALK PHOS (test code = 5088917418) 69 U/L 34-122 ALTv (test code = 1742-6) 11 U/L 5-35 AST(SGOT) (test code = 5703932154) 19 U/L 13-40 Lab Interpretation (test code = Normal 48822-8) [facility] CenterLipase [id number] 19:31:00 Test Item Value Reference Range Interpretation Comments LIPASE (test code = 8391529099) 42 U/L 0-220 Lab Interpretation (test code = Normal 91906-4) [facility] CenterCOVID-19 (ID NOW RAPID TESTING)2020-11-14 19:31:00 Test Item Value Reference Range Interpretation Comments SARS-CoV-2 Rapid ID NOW Not Detected Not Detected (test code = 29148-8) KANU (test code = KANU) ID NOW COVID-19 Assay is an isothermal nucleic acid amplification test intended for the qualitative detection of nucleic acid from SARS-CoV-2 viral RNA in nasopharyngeal ([employer]) specimens. It is used under Emergency Use [...] indicated. Lab Interpretation Normal (test code = 53768-2) [facility] with [id number] 19:16:00 Test Item Value Reference Range Interpretation Comments WBC (test code = See_Comment H [Automated 8090-2) message] The sy stem which generated this [...] RDW-SD (test code = 41.3 fL 39-49.9 54720-5) RDW-CV (test code = 14.1 % 12-15.5 788-0) PLT (test code = See_Comment [Automated 777-3) message] The sy stem which generated this result transmitted reference range : 166 - 358 10*3/ ?L. The reference r dayana was not used to interpret this result as normal/abnormal . MPV (test code = 10.1 fL 9.5-12.9 32497-0) NRBC/100 WBC (test See_Comment [Automat ed code = 6299509421) message] The system which generated this result transmitted reference range : 0.0 - 10.0 /100 WBCs. The refer ence range was not u sed to interpret th is result as normal/abnormal . NRBC x10^3 (test code <0.01 See_Comment [Auto mated = 4019047815) message] The s ystem which generated this result transmitted reference range : 10*3/?L. The reference range was not used to interpret this result as normal/abnormal . GRAN MAT (NEUT) % 73.2 % (test code = 770-8) IMM GRAN % (test code 0.70 % = 4778975419) LYMPH % (test code = 18.1 % 736-9) MONO % (test code = 6.6 % 5905-5) EOS % (test code = 1.1 % 713-8) BASO % (test code = 0.3 % 706-2) GRAN MAT x10^3(ANC) 8.41 10*3/uL 1.88-7.09 H (test code = 8429565693) IMM GRAN x10^3 (test 0.08 10*3/uL 0-0.06 H code = 8196845880) LYMPH x10^3 (test code 2.08 10*3/uL 1.32-3.29 = 731-0) MONO x10^3 (test code 0.76 10*3/uL 0.33-0.92 = 742-7) EOS x10^3 (test code = 0.13 10*3/uL 0.03-0.39 711-2) BASO x10^3 (test code 0.04 10*3/uL 0.01-0.07 = 704-7) Lab Interpretation Abnormal (test code = 01852-8) [facility] CenterDEXA AXIAL (HIP AND SPINE)2020-08-25 20:15:51 HISTORY: Osteoporosis [...] neck of the right femur. ASSESSMENT: WHO-definitions: T- score normal: +/- 1 SD around the meanosteopenia: >1 to 2.4 SD below the meanosteoporosis: >2.5 SD below the meanFracture risk doubles for each 1.5 SD below the mean. [facility], Radiant Results Inft User - 08/25/2020 2:16 PM CSTHISTORY: Osteoporosis screening study.TECHNIQUE: Bone density estimation is done using DEXA scan, over the righthip and lumbar spines.FINDINGS: Details of the results are enclosed for your review. The summaryis as follows.RIGHT HIP:BMD value is 0.870 gm/sq cm, with T-score of -1.1. Estimated BMD in theneck is 0.746 g/sq cm with T score of - 2.1.LUMBAR SPINES:Average BMD value from L1 through L4 [...] doubles for each 1.5 SD below the mean.[facility] CenterXR HIPS 2 VW BILATERAL 2020-08-25 19:21:09HISTORY: Bilateral [...] dislocation in right hip or left hipjoint. [facility], Radiant Results Inft User - 08/25/2020 1:22 PM CSTHISTORY: Bilateral hip pain.FINDINGS: AP and lateral views of right hip as well as left hip showed noacute fracture or dislocation.Minimal degenerative changes are seen in the upper weightbearing portion ofthe abdominal. No subchondral degenerative lesions are seen in the bones.Incidental note made of heavily calcified 6 cm uterine fibroid. No signs ofAVN inthe femoral heads or aggressive bone lesions seen.CONCLUSIONS: No acute fracture or dislocation in right hip or left hipjoint.[facility] COVID-19 (ID NOW RAPID TESTING)2020-06-11 20:18:00 Test Item Value Reference Range Interpretation Comments SARS-CoV-2 Rapid ID NOW Not Detected Not Detected (test code = 23499-2) KANU (test code = KANU) ID NOW COVID-19 Assay is an isothermal nucleic acid amplification test intended for the qualitative detection of nucleic acid from SARS-CoV-2 viral RNA in nasopharyngeal ([employer] WORK[employer]) specimens. It is used under Emergency Use [...] indicated. Lab Interpretation Normal (test code = 01212-1) [facility] CenterCOVID-19 (ID NOW RAPID TESTING)2020-06-03 22:06:00 Test Item Value Reference Range Interpretation Comments SARS-CoV-2 Rapid ID NOW Not Detected Not Detected (test code = 17355-2) KANU (test code = KANU) ID NOW COVID-19 Assay is an isothermal nucleic acid amplification test intended for the qualitative detection of nucleic acid from SARS-CoV-2 viral RNA in nasopharyngeal ([employer] WORKER) specimens. It is used under Emergency Use [...] indicated. Lab Interpretation Normal (test code = 49245-9) [facility] CenterTroponin [id number] 21:37:00 Test Item Value Reference Range Interpretation Comments TROPONIN I (test 0.002 ng/mL See_Comment [Automated code = 4593803006) message] The system which generated this result [...] ? Lab Interpretation Normal (test code = 28430-0) [facility] CenterN-TERMINAL [id number] 21:34:00 Test Item Value Reference Range Interpretation Comments NT-proBNP (test code 62 pg/mL See_Comment [Autom ated = 7479215056) message] The system which generated this result transmitted reference range : <=450. The reference range was not used to interpret this result as normal/abnormal . KANU (test code = KANU) Biotin has been reported to cause a negative bias, interpret results relative to patient's use of biotin. Lab Interpretation Normal (test code = 63283-0) [facility] CenterProthrombin Time (PT) / [id number] 21:30:00 Test Item Value Reference Range Interpretation Comments PROTIME PATIENT (test See_Comment [Auto mated message] code = 5964-2) The system [employer] generated this result transmitted ref erence range: 12.0 - 1 4.7 Seconds. The re ference range was not u sed to interpret this result as normal/abnor mal. INR (test code = 6301-6) Nor mal INR <1.1; Warfarin Therap eutic range 2.0 to 3. 0 or 2.5 to 3.5, dep ending upon the indica tions. Lab Interpretation (test Normal code = 68705-6) [facility]. METABOLIC PANEL (84144)2020-06-03 21:25:00 Test Item Value Reference Range Interpretation Comments NA (test code = 139 mmol/L 135-145 3941062435) K (test code = 4.1 mmol/L 3.5-5 2982158999) CL (test code = 101 mmol/L 98-108 2377272783) CO2 TOTAL (test code = 24 mmol/L 23-31 2026983032) AGAP (test code = 2-16 2281478850) BUN (test code = 22 mg/dL 7-23 4909266639) GLUCOSE (test code = 118 mg/dL 70-110 H 3242968853) CREATININE (test code = 1.22 mg/dL 0.5-1.04 H 2258114025) TOTAL BILI (test code = 0.4 mg/dL 0.1-1.2 6570616292) CALCIUM (test code = 10.2 mg/dL 8.6-10.6 5870369819) T PROTEIN (test code = 7.7 g/dL 6.3-8.2 2937191999) ALBUMIN (test code = 4.5 g/dL 3.5-5 7074687208) ALK PHOS (test code = 61 U/L 34-122 6932844742) ALTv (test code = 23 U/L 5-35 1742-6) AST(SGOT) (test code = 27 U/L 13-40 5717326024) eGFR Calculation mL/min/1.73m2 (Non-) (test code = 4462275932) eGFR Calculation mL/min/1.73m2 () (test code = 8749246838) KANU (test code = KANU) Association of [...] tests). Lab Interpretation Abnormal (test code = 57260-8) [facility] CenterXR CHEST 1 VW [id number] 21:16:49 Mild cardiomegaly. Short sliding hiatal hernia. No detectable radiographic findings to suggest COVID-19 pneumonia. Disclaimer: Generally, the findings on chest imaging in COVID-19 are notspecific, andoverlap with other infections, including influenza, H1N1,SARS and MERS.According to the Centers for Disease Control (CDC) and recent statement ofthe [employer], viral testing remains the only specificmethod of diagnosis. Confirmation with the viral test is required, even ifradiologic findings are suggestive of COVID-[address]. Preliminary Report Dictated by Resident: Talha Saud Carter MD., have reviewed this study and agree with theabove report.PROCEDURE: CHEST, SINGLE VIEW . CLINICAL INDICATION: shortness of breath COMPARISON: None FINDINGS: The lungs demonstrate minimal increase in the pulmonary interstitialmarkings in lower lungs. No focal consolidation, pleural effusion orpneumothorax is seen. The aortic arch is prominent. The heart is mildly en larged. No acute bony abnormality. [facility], Radiant Results Inft User - 06/03/2020 4:17 PM CDTPROCEDURE: CHEST, SINGLE VIEW .CLINICAL INDICATION: shortness of breath COMPARISON: NoneFINDINGS:The lungs demonstrate minimal increase in the pulmonary interstitialmarkings in lower lungs. No focal consolidation, pleural effusion orpneumothorax is seen.The aortic arch is prominent. The heart is mildly enlarged.No acute bony abnormality.IMPRESSIONMild cardiomegaly. Short sliding hiatal hernia.No detectable radiographic findings to suggest COVID-19 pneumonia.Disclaimer: Generally, the findings on chest imagingin COVID-19 are notspecific, and overlap with other infections, including influenza, H1N1,SARS and MERS.According to the Centers for Disease Control (CDC) and recent statement ofthe [place] [employer], viral testing remains the only specificmethod of diagnosis. Confirmation with the viral test is required, even ifradiologic findings are suggestive of COVID-[address]. Preliminary Repor t Dictated by Resident: Saud Chatterjee MD., have reviewed this study and agree with theabove report.[facility] with [id number] 21:09:00 Test Item Value Reference Range Interpretation Comments WBC (test code = See_Comment [Automated message] 6690-2) The system [employer] generated this result transmitted ref erence range: 4.30 - 1 1.10 10*3/?L. The re ference range was not u sed to interpret this result as normal/abnor mal. RBC (test code = See_Comment [Automated message] 789-8) The system [employer] generated this result transmitted ref erence range: [...] RDW-SD (test code 41.1 fL 39-49.9 = 80700-3) RDW-CV (test code 13.9 % 12-15.5 = 788-0) PLT (test code = See_Comment [Automated message] 777-3) The system [employer] generated this result transmitted ref erence range: 166 - 35 8 10*3/?L. The re ference range was not u sed to interpret this result as normal/abnor mal. MPV (test code = 10.3 fL 9.5-12.9 20785-4) NRBC/100 WBC (test See_Comment [Automat ed message] code = 5529042705) The syste m which generated this result transmitted ref erence range: 0.0 - 10 .0 /100 WBCs. The refer ence range was not u sed to interpret this result as normal/abnor mal. NRBC x10^3 (test <0.01 See_Comment [Automated message] code = 4422981709) The syste m which generated this result transmitted ref erence range: 10*3/?L. The reference range was not used to interpr et this result as normal/abnormal . GRAN MAT (NEUT) % 52.1 % (test code = 770-8) IMM GRAN % (test 0.40 % code = 2535930448) LYMPH % (test code 37.9 % = 736-9) MONO % (test code 6.8 % = 5905-5) EOS % (test code = 2.4 % 713-8) BASO % (test code 0.4 % = 706-2) GRAN MAT 3.66 10*3/uL 1.88-7.09 x10^3(ANC) (test code = 7887638060) IMM GRAN x10^3 0.03 10*3/uL 0-0.06 (test code = 5033125748) LYMPH x10^3 (test 2.67 10*3/uL 1.32-3.29 code = 731-0) MONO x10^3 (test 0.48 10*3/uL 0.33-0.92 code = 742-7) EOS x10^3 (test 0.17 10*3/uL 0.03-0.39 code = 711-2) BASO x10^3 (test 0.03 10*3/uL 0.01-0.07 code = 704-7) [facility] GLUCOSE (AUTOMATED)2019-12-09 21:03:00 Test Item Value Reference Range Interpretation Comments POCT GLU (test code = 1527295113) 184 mg/dL 70-110 H Lab Interpretation (test code = Abnormal 45478-7) [facility] GLUCOSE (AUTOMATED)2019-12-09 16:38:00 Test Item Value Reference Range Interpretation Comments POCT GLU (test code = 5856885952) 157 mg/dL 70-110 H Lab Interpretation (test code = Abnormal 13317-7) [facility]LAB ONLY CORONAVIRUS COVID-19 PCR GNL 2019-12-09 15:52:00 Test Item Value Reference Range Interpretation Comments Coronavirus COVID-19 Not Detected Not Detected (test code = 5004343255) KANU (test code = KANU) Not Detected: A negative result does not preclude COVID-19 infection and should not be used as the sole basis for treatment or other patient management decisions. Negative results must be combined with clinical observations, patient history, and epidemiological information. Presumptive Positive: Specimen will be sent to [facility]/CDC for confirmation testing. Inconclusive: Specimen will be sent to [facility] for additional testing. Invalid: Please collect a new specimen for repeat patient testing. Disclaimer:This test was developed and its performance characteristics determined by [facility]. It has not been cleared [...] Presumptive Positive: Specimen will be sent to [facility] for confirmation testing. Inconclusive: Specimen will be sent to [facility] for additional testing. Invalid: Please collect a new specimen for repeat patient testing. Disclaimer:This test was developed and its performance characteristics determined by [facility]. It has not been cleared [...] testing. Lab Interpretation Normal (test code = 80281-8) [facility]PO[facility])2019-12-09 12:32:00 Test Item Value Reference Range Interpretation Comments POCT GLU (test code = 8921209725) 157 mg/dL 70-110 H Lab Interpretation (test code = Abnormal 03312-0) [facility] CenterTHYROID STIMULATING [id number] 12:24:00 Test Item Value Reference Range Interpretation Comments TSH (test code = See_Comment H [Automated message] 1038443288) The system [employer] generated this result transmitted ref erence range: 0.45 - 4 .70 mIU/L. The refe rence range was not u sed to interpret this result as normal/abnor mal. Lab Interpretation (test Abnormal code = 46299-0) [facility] CenteraPTT (for use with Heparin Practice Guideline). Note: [...] . KANU (test code = KANU) The [facility] patient population mean normal value for aPTT is 30 seconds. Lab Interpretation Abnormal (test code = 76480-6) [facility] (NA, K, CL, CO2, GLUCOSE, BUN, CREATININE, CA)2019-12-09 11:53:00 Test Item Value Reference Range Interpretation Comments NA (test code = 136 mmol/L 135-145 4762485411) K (test code = 4.0 mmol/L 3.5-5 6121211200) CL (test code = 100 mmol/L 98-108 1787779225) CO2 TOTAL (test code = 22 mmol/L 23-31 L 4356585436) AGAP (test code = 2-16 5742027196) BUN (test code = 15 mg/dL 7-23 7332028982) GLUCOSE (test code = 155 mg/dL 70-110 H 7727096758) CREATININE (test code = 1.23 mg/dL 0.5-1.04 H 2166136447) CALCIUM (test code = 9.8 mg/dL 8.6-10.6 4700337327) eGFR Calculation mL/min/1.73m2 (Non-) (test code = 9044292628) eGFR Calculation mL/min/1.73m2 () (test code = 5129257519) KANU (test code = KANU) Association of [...] tests). Lab Interpretation Abnormal (test code = 19174-4) [facility] WITH [id number] 11:27:00 Test Item Value Reference Range Interpretation Comments WBC (test code = See_Comment [Automated 5915-2) message] The sy stem which generated this result transmitted reference range : 4.30 - 11.10 10*3/?L. The reference range was not used to interpret this result as normal/abnormal . RBC (test code = See_Comment H [Automated 639-8) message] The sy stem which generated this [...] RDW-SD (test code = 42.8 fL 39-49.9 87836-8) RDW-CV (test code = 14.6 % 12-15.5 788-0) PLT (test code = See_Comment [Automated 777-3) message] The sy stem which generated this result transmitted reference range : 166 - 358 10*3/ ?L. The reference r dayana was not used to interpret this result as normal/abnormal . MPV (test code = 10.2 fL 9.5-12.9 54409-5) NRBC/100 WBC (test See_Comment [Automat ed code = 3790199489) message] The system which generated this result transmitted reference range : 0.0 - 10.0 /100 WBCs. The refer ence range was not u sed to interpret th is result as normal/abnormal . NRBC x10^3 (test code <0.01 See_Comment [Auto mated = 0696788304) message] The s ystem which generated this result transmitted reference range : 10*3/?L. The reference range was not used to interpret this result as normal/abnormal . GRAN MAT (NEUT) % 51.0 % (test code = 770-8) IMM GRAN % (test code 0.50 % = 2167033925) LYMPH % (test code = 36.8 % 736-9) MONO % (test code = 8.2 % 5905-5) EOS % (test code = 3.1 % 713-8) BASO % (test code = 0.4 % 706-2) GRAN MAT x10^3(ANC) 4.10 10*3/uL 1.88-7.09 (test code = 3170405100) IMM GRAN x10^3 (test 0.04 10*3/uL 0-0.06 code = 0703866348) LYMPH x10^3 (test code 2.96 10*3/uL 1.32-3.29 = 731-0) MONO x10^3 (test code 0.66 10*3/uL 0.33-0.92 = 742-7) EOS x10^3 (test code = 0.25 10*3/uL 0.03-0.39 711-2) BASO x10^3 (test code 0.03 10*3/uL 0.01-0.07 = 704-7) Lab Interpretation Abnormal (test code = 08321-2) [facility] GLUCOSE (AUTOMATED)2019-12-09 00:28:00 Test Item Value Reference Range Interpretation Comments POCT GLU (test code = 6825178241) 208 mg/dL 70-110 H Lab Interpretation (test code = Abnormal 28362-6) [facility] [id number] 21:28:00 Test Item Value Reference Range Interpretation Comments URINE CULTURE (test No aerobic organisms code = 630-4) isolated [facility] GLUCOSE (AUTOMATED)2019-12-08 21:15:00 Test Item Value Reference Range Interpretation Comments POCT GLU (test code = 1658332405) 157 mg/dL 70-110 H Lab Interpretation (test code = Abnormal 73542-1) [facility] Test Item Value Reference Range Interpretation Comments APTT Patient (test See_Comment H [Automat ed code = 3173-2) message] The system which generated this result transmitted reference range : 23 - 38 Seconds . The reference range was not used to interpr et this result as normal/abnormal . KANU (test code = KANU) The [facility] patient population mean normal value for aPTT is 30 seconds. Lab Interpretation Abnormal (test code = 89645-5) [facility] GLUCOSE (AUTOMATED)2019-12-08 16:46:00 Test Item Value Reference Range Interpretation Comments POCT GLU (test code = 6320681564) 172 mg/dL 70-110 H Lab Interpretation (test code = Abnormal 30824-9) [facility] GLUCOSE (AUTOMATED)2019-12-08 12:20:00 Test Item Value Reference Range Interpretation Comments POCT GLU (test code = 0906922036) 159 mg/dL 70-110 H Lab Interpretation (test code = Abnormal 85992-8) [facility] (for use with Heparin Practice Guideline). Note: [...] . KANU (test code = KANU) The [facility] patient population mean normal value for aPTT is 30 seconds. Lab Interpretation Abnormal (test code = 52414-3) [facility] WITH [id number] 07:05:00 Test Item Value Reference Range Interpretation [...] RDW-SD (test code = 41.9 fL 39-49.9 13098-4) RDW-CV (test code = 14.7 % 12-15.5 788-0) PLT (test code = See_Comment [Automated 777-3) message] The sy stem which generated this result transmitted reference range : 166 - 358 10*3/ ?L. The reference r dayana was not used to interpret this result as normal/abnormal . MPV (test code = 11.1 fL 9.5-12.9 21155-0) NRBC/100 WBC (test See_Comment [Automat ed code = 8722104329) message] The system which generated this result transmitted reference range : 0.0 - 10.0 /100 WBCs. The refer ence range was not u sed to interpret th is result as normal/abnormal . NRBC x10^3 (test code <0.01 See_Comment [Auto mated = 5278632962) message] The s ystem which generated this result transmitted reference range : 10*3/?L. The reference range was not used to interpret this result as normal/abnormal . GRAN MAT (NEUT) % 61.6 % (test code = 770-8) IMM GRAN % (test code 0.40 % = 0130714269) LYMPH % (test code = 28.3 % 736-9) MONO % (test code = 8.8 % 5905-5) EOS % (test code = 0.7 % 713-8) BASO % (test code = 0.2 % 706-2) GRAN MAT x10^3(ANC) 6.19 10*3/uL 1.88-7.09 (test code = 6870698519) IMM GRAN x10^3 (test 0.04 10*3/uL 0-0.06 code = 3177569831) LYMPH x10^3 (test code 2.85 10*3/uL 1.32-3.29 = 731-0) MONO x10^3 (test code 0.89 10*3/uL 0.33-0.92 = 742-7) EOS x10^3 (test code = 0.07 10*3/uL 0.03-0.39 711-2) BASO x10^3 (test code <0.03 0.01-0.07 = 704-7) Lab Interpretation Abnormal (test code = 31671-1) [facility] GLUCOSE (AUTOMATED)2019-12-08 01:01:00 Test Item Value Reference Range Interpretation Comments POCT GLU (test code = 150 mg/dL 70-110 H Notifi ed Provider [id number]) Lab Interpretation (test Abnormal code = 85694-6) [facility] (for use with Heparin Practice Guideline). Note: [...] . KANU (test code = KANU) The [facility] patient population mean normal value for aPTT is 30 seconds. Lab Interpretation Abnormal (test code = 63631-0) [facility] GLUCOSE (AUTOMATED)2019-12-07 21:50:00 Test Item Value Reference Range Interpretation Comments POCT GLU (test code = 4802772712) 152 mg/dL 70-110 H Lab Interpretation (test code = Abnormal 86906-6) [facility] GLUCOSE (AUTOMATED)2019-12-07 16:50:00 Test Item Value Reference Range Interpretation Comments POCT GLU (test code = 6159529276) 145 mg/dL 70-110 H Lab Interpretation (test code = Abnormal 80294-3) [facility] CenterGlycosylated Hemoglobin (A1C)2019-12-07 14:03:00 Test Item Value Reference [...] Indicated Lab Interpretation Abnormal (test code = 88332-7) [facility]2019-12-07 13:38:00 Test Item Value Reference Range Interpretation Comments POCT GLU (test code = 1512047971) 134 mg/dL 70-110 H Lab Interpretation (test code = Abnormal 62365-0) [facility] (for use with Heparin Practice Guideline). Note: [...] . KANU (test code = KANU) The [facility] patient population mean normal value for aPTT is 30 seconds. Lab Interpretation Abnormal (test code = 38935-3) [facility] CHEST PULMONARY [id number] 04:05:36 Right upper lobe segmental pulmonary emboli. [...] and reviewed to further defineanatomy and possible pathology. ? FINDINGS: PULMONARY ARTERIES: Contrast bolus timing is adequate for evaluation ofpulmonary arterialvasculature. There is a partially occlusive thrombus within the right upper lobesubsegmental branch (9:100, 7:45) and right posterior segmental branch(7:53). Main pulmonary trunk measures 2.6 cm in transverse dimension at thelevel of right/left pulmonary artery bifurcation. CHEST:Lower neck/thyroid: Unremarkable. Lungs: Bilateral subsegmental atelectasis. Central airway: Patent central airways. Pleura: No pleural effusion, thickening or pneumothorax. Thoracic aorta and great vessels: ?Normal in diameter. Heart and pericardium: Mild atherosclerotic calcifications within the leftmain and LAD coronaryartery distributions. Unremarkable cardiac morphologyand pericardium. Lymph nodes: [...] 120 mL Omnipaque 350 intravenouscontrast, without complication. 3D axial MIPS and coronal MPRS weregenerated under radiologist supervision, and reviewed to further defineana florentino and possible pathology. FINDINGS:PULMONARY ARTERIES: Contrast bolus timing is adequate for evaluation ofpulmonary arterial vasculature.There is a partially occlusive thrombus within the right upper lobesubsegmental branch (9:100, 7:45) and right posterior segmental branch(7:53). Main pulmonary trunk measures 2.6 cm in transverse dimension at thelevel of right/left pulmonary artery bifurcation.CHEST:Lower neck/thyroid: Unremarkable.Lungs: Bilateral subsegmental atelectasis.Central airway: Patentcentral airways.Pleura: No pleural effusion, thickening or pneumothorax.Thoracic aorta and great vessels: Normal in diameter.Heart and pericardium: Mild atherosclerotic calcifications within the leftmain and LAD coronary artery distributions. Unremarkable cardiac morphologyand pericardium.Lymph nodes:No enlarged thoracic lymph nodes.Thoracic spine and chest wall: Unremarkable, with normal thoracic vertebralbody heights.Other Lines/Tubes/Devices/Hardware: NoneVisualized upper abdomen: Small hiatal hernia and gastric band. IMPRESSIONRight upper lobe segmental pulmonary emboli.Findings were discussed with Dr. Gee at 10:20 PM.Preliminary Report Dictated by Resident: Kristy Yao, Terrance Eng MD., have reviewed this study and agree with theabove report.[facility] CenterProthrombin Time (PT) / INR 2019-12-07 04:05:00 Test [...] tions. Lab Interpretation (test Normal code = 09152-6) [facility]eraPTT2020-03-22 04:04:00 Test Item Value Reference Range Interpretation Comments APTT Patient (test See_Comment [Automat ed code = 3173-2) message] The system which generated this result transmitted reference range : 23 - 38 Seconds . The reference range was not used to interpr et this result as normal/abnormal . KANU (test code = KANU) The [facility] patient population mean normal value for aPTT is 30 seconds. Lab Interpretation Normal (test code = 10755-1) [facility] CenterUrinalysis2020-03-22 03:34:00 Test Item Value Reference Range Interpretation Comments APPEARANCE (test code = Hazy Clear A 0687294502) COLOR (test code = Yellow Yellow 4013222728) PH (test code = 4.8-8.0 4198666186) SP GRAVITY (test code = 1.003-1.030 4700991840) GLU U QUAL (test code = Normal Normal 1891152159) BLOOD (test code = Negative Negative INTERFERE NCE FROM 4949335638) ASCORBIC ACID M AY CAUSE FALSE NEG ATIVE RESULT KETONES (test code = 5 mg/dL Negative A 9362849523) PROTEIN (test code = 30 mg/dL Negative A 2887-8) UROBILIN (test code = Normal Normal 4874272099) BILIRUBIN (test code = Negative Negative 3649801369) NITRITE (test code = Negative Negative 3402991747) LEUK ULISES (test code = 250/uL Negative A 6804121619) RBC/HPF (test code = See_Comment H [Autom ated message] 5151157741) The system [employer] generated this result transmitted ref erence range: 0 - 3 HP F. The reference range was not used to int erpret this result as normal/abnormal . WBC/HPF (test code = See_Comment H [Autom ated message] 3013934085) The system [employer] generated this result transmitted ref erence range: 0 - 5 HP F. The reference range was not used to int erpret this result as normal/abnormal . BACTERIA (test code = Few Negative A 2669101638) MUCOUS (test code = Slight Negative LPF A 9028741281) SQ EPITH (test code = HPF 5855074453) HYAL CAST (test code = See_Comment H [Aut omated message] 0379096301) The system [employer] generated this result transmitted ref erence range: <=2 LPF. The reference range was not used to int erpret this result as normal/abnormal . TRANS EPI (test code = See_Comment H [Aut omated message] 0998495307) The system [employer] generated this result transmitted ref erence range: <=1 HPF. The reference range was not used to int erpret this result as normal/abnormal . GLORIA EPITH (test code = See_Comment H [Aut omated message] 3534966089) The system [employer] generated this result transmitted ref erence range: <=1 HPF. The reference range was not used to int erpret this result as normal/abnormal . Lab Interpretation (test Abnormal code = 48001-8) [facility] 2 [id number] 02:52:25 No acute cardiopulmonary abnormality. Preliminary Report [...] Diffuse bone demineralization. Gastric band projects in expectedposition. [facility], Radiant Results Inft User - 12/06/2019 9:53 PM CDTPROCEDURE: XR CHEST 2 VWCLINICAL INDICATION: sob, fever COMPARISON: 08/24/2020.Technique: PA and lateral view of the chest.FINDINGS:The lungs are clear except for bilateral midlung atelectasis (similarprior). No pleural effusion or pneumothorax is seen. The heart is normal insize. Aortic arch calcifications.No acute bony abnormality. Diffuse bone demineralization.Gastric band projects in expected position.IMPRESSIONNo acute cardiopulmonary abnormality. Preliminary Report Dictated by Resident: Terrance Bergman MD., have reviewed this study and agree with theabove report.[facility] CenterJessica [id number] 02:31:00 Test Item Value Reference Range Interpretation Comments TROPONIN I (test 0.008 ng/mL See_Comment [Automated code = 0796815281) message] The system which generated this result [...] ? Lab Interpretation Normal (test code = 14427-2) [facility] (NA, K, CL, CO2, GLUCOSE, BUN, CREATININE, CA)2019-12-07 02:19:00 Test Item Value Reference Range Interpretation Comments NA (test code = 141 mmol/L 135-145 1810525145) K (test code = 4.0 mmol/L 3.5-5 9887651434) CL (test code = 102 mmol/L 98-108 3370439929) CO2 TOTAL (test code = 22 mmol/L 23-31 L 1855279738) AGAP (test code = 2-16 H 8294383975) BUN (test code = 17 mg/dL 7-23 6636891473) GLUCOSE (test code = 109 mg/dL 70-110 8520317670) CREATININE (test code = 1.18 mg/dL 0.5-1.04 H 1869732951) CALCIUM (test code = 10.2 mg/dL 8.6-10.6 7130042984) eGFR Calculation mL/min/1.73m2 (Non-) (test code = 1751775706) eGFR Calculation mL/min/1.73m2 () (test code = 8631088908) KANU (test code = KANU) Association of [...] tests). Lab Interpretation Abnormal (test code = 71958-5) [facility] CenterHepatic Function Panel (ALB, T.PRO, BILI T, BU/BC, ALT, AST, ALK PHOS)2019-12-07 02:19:00 Test Item Value Reference Range Interpretation Comments TOTAL BILI (test code = 3536960734) 0.4 mg/dL 0.1-1.1 BILI UNCON (test code = 0390873038) 0.3 mg/dL 0.1-1.1 BILI CONJ (test code = 6537757135) 0.0 mg/dL 0-0.3 T PROTEIN (test code = 6689594338) 8.2 g/dL 6.3-8.2 ALBUMIN (test code = 0294638274) 4.9 g/dL 3.5-5 ALK PHOS (test code = 6160629834) 70 U/L 34-122 ALTv (test code = 1742-6) 27 U/L 5-35 AST(SGOT) (test code = 4077149579) 35 U/L 13-40 Lab Interpretation (test code = Normal 84329-1) [facility] CenterLipase [id number] 02:19:00 Test Item Value Reference Range Interpretation Comments LIPASE (test code = 7538593548) 95 U/L 0-220 Lab Interpretation (test code = Normal 23824-3) [facility] CenterAD,CLC OR LCC ONLY - INFLUENZA A & B DIRECT [id number] 02:17:00 Test Item Value Reference Range Interpretation Comments Influenza A (test code = 32719-6) Negative Negative Influenza B (test code = 07320-8) Negative Negative Lab Interpretation (test code = Normal 91364-3) [facility] WITH [id number] 01:58:00 Test Item Value Reference Range Interpretation Comments WBC (test code = See_Comment [Automated message] 6690-2) The system [employer] generated this result transmitted ref erence range: 4.30 - 1 1.10 10*3/?L. The re ference range was not u sed to interpret this result as normal/abnor mal. RBC (test code = See_Comment [Automated message] 789-8) The system [employer] generated this result transmitted ref erence range: [...] RDW-SD (test code 41.4 fL 39-49.9 = 13089-1) RDW-CV (test code 13.9 % 12-15.5 = 788-0) PLT (test code = See_Comment [Automated message] 777-3) The system [employer] generated this result transmitted ref erence range: 166 - 35 8 10*3/?L. The re ference range was not u sed to interpret this result as normal/abnor mal. MPV (test code = 10.1 fL 9.5-12.9 53520-7) NRBC/100 WBC (test See_Comment [Automat ed message] code = 2313360344) The syste m which generated this result transmitted ref erence range: 0.0 - 10 .0 /100 WBCs. The refer ence range was not u sed to interpret this result as normal/abnor mal. NRBC x10^3 (test <0.01 See_Comment [Automated message] code = 8676459128) The syste m which generated this result transmitted ref erence range: 10*3/?L. The reference range was not used to interpr et this result as normal/abnormal . GRAN MAT (NEUT) % 53.5 % (test code = 770-8) IMM GRAN % (test 0.40 % code = 8157392708) LYMPH % (test code 35.7 % = 736-9) MONO % (test code 7.5 % = 5905-5) EOS % (test code = 2.6 % 713-8) BASO % (test code 0.3 % = 706-2) GRAN MAT 3.87 10*3/uL 1.88-7.09 x10^3(ANC) (test code = 2682711453) IMM GRAN x10^3 0.03 10*3/uL 0-0.06 (test code = 7045427151) LYMPH x10^3 (test 2.58 10*3/uL 1.32-3.29 code = 731-0) MONO x10^3 (test 0.54 10*3/uL 0.33-0.92 code = 742-7) EOS x10^3 (test 0.19 10*3/uL 0.03-0.39 code = 711-2) BASO x10^3 (test <0.03 0.01-0.07 code = 704-7) [facility] CenterXR CHEST 2 [id number] 01:30:47 No acute cardiopulmonary abnormality. Preliminary Report [...] reviewed this study and agree with the abovereport.[facility] CenterADC,CLC OR LCC ONLY - INFLUENZA A & B DIRECT [id number] 01:10:00 Test Item Value Reference Range Interpretation Comments Influenza A (test code = 11149-0) Negative Negative Influenza B (test code = 05879-1) Negative Negative Lab Interpretation (test code = Normal 00305-4) [facility] FLU A AND B (MOLECULAR)2019-11-09 01:21:00 Test Item Value Reference Range Interpretation Comments POCT INFLUENZA A (test neg Negative - code = 3840) Negative POCT INFLUENZA B (test neg Negative - code = 3841) Negative KANU (test code = KANU) accurate development and interpretation of all internal controls Lab Interpretation Normal (test code = 01026-6) [facility] CenterMICROALBUMIN [id number] 16:21:00 Test Item Value Reference Range Interpretation Comments CREAT U (test 230.5 mg/dL code = 7049720835) MICROALB U 23 ug/mL 0-45 (test code = 86211-7) MICROAL/CR See_Comment [Automated (test code = message] The 9318-7) system which generated this result transmitted reference range : 0 - 30 mg/g of creatinine. The reference range was not used to interpret this result as normal/abnormal . KANU (test code Normal: <30 mg/g = KANU) creatinineMicroalbuminur ia: 30 - 299 mg/g creatinineClinical albuminuria: > 300 mg/g creatinine [facility] CenterMICROALBUMIN [id number] 16:21:00 Test Item Value Reference Range Interpretation Comments CREAT U (test 230.5 mg/dL code = 5554697097) MICROALB U 23 ug/mL 0-45 (test code = 47127-9) MICROAL/CR See_Comment [Automated (test code = message] The 9318-7) system which generated this result transmitted reference range : 0 - 30 mg/g of creatinine. The reference range was not used to interpret this result as normal/abnormal . KANU (test code Normal: <30 mg/g = KANU) creatinineMicroalbuminur ia: 30 - 299 mg/g creatinineClinical albuminuria: > 300 mg/g creatinine [facility] CenterTHYROID STIMULATING [id number] 19:20:00 Test Item Value Reference Range Interpretation Comments TSH (test code = See_Comment [Automated message] 0689949227) The system [employer] generated this result transmitted ref erence range: 0.45 - 4 .70 mIU/L. The refe rence range was not u sed to interpret this result as normal/abnor mal. Lab Interpretation (test Normal code = 30297-3) [facility] CenterTHYROID STIMULATING [id number] 19:20:00 Test Item Value Reference Range Interpretation Comments TSH (test code = See_Comment [Automated message] 7848300273) The system [employer] generated this result transmitted ref erence range: 0.45 - 4 .70 mIU/L. The refe rence range was not u sed to interpret this result as normal/abnor mal. Lab Interpretation (test Normal code = 73216-0) [facility] CenterLIPID PANEL (25663)(TOTAL CHOLESTEROL, TRIGLYCERIDES, HDL)2019-10-30 18:53:00 Test Item Value Reference Range Interpretation Comments CHOL (test code = 250 mg/dL 120-200 H 3058440011) HDL (test code = 46 mg/dL >50 L 4423724521) HDLC RATIO (test code = See_Comment H [Au tomated message] 5178139040) The system [employer] generated this result transmit cesar reference range : <=4.5. The refe rence range was not u sed to interpret th is result as normal/abnormal . TRIG (test code = 162 mg/dL 30-170 2849103086) LDL CHOL (test code = 172 mg/dL See_Comment H [Auto mated message] 60257-5) The system [employer] generated this result transmit cesar reference range : <=160. The refe rence range was not u sed to interpret th is result as normal/abnormal . VLDL (test code = 32 mg/dL 5-60 1586667289) Lab Interpretation (test Abnormal code = 53936-7) [facility] CenterLIPID PANEL (21923)(TOTAL CHOLESTEROL, TRIGLYCERIDES, HDL)2019-10-30 18:53:00 Test Item Value Reference Range Interpretation Comments CHOL (test code = 250 mg/dL 120-200 H 1247972936) HDL (test code = 46 mg/dL >50 L 2739000705) HDLC RATIO (test code = See_Comment H [Au tomated message] 9917529120) The system [employer] generated this result transmit cesar reference range : <=4.5. The refe rence range was not u sed to interpret th is result as normal/abnormal . TRIG (test code = 162 mg/dL 30-170 2038789620) LDL CHOL (test code = 172 mg/dL See_Comment H [Auto mated message] 99499-0) The system [employer] generated this result transmit cesar reference range : <=160. The refe rence range was not u sed to interpret th is result as normal/abnormal . VLDL (test code = 32 mg/dL 5-60 6477954560) Lab Interpretation (test Abnormal code = 29005-7) [facility] CenterCOMP. METABOLIC PANEL (93136)2019-10-30 18:52:00 Test Item Value Reference Range Interpretation Comments NA (test code = 140 mmol/L 135-145 0507440979) K (test code = 4.8 mmol/L 3.5-5 8773443854) CL (test code = 102 mmol/L 98-108 0339635966) CO2 TOTAL (test code = 28 mmol/L 23-31 3695420850) AGAP (test code = 2-16 5696658624) BUN (test code = 28 mg/dL 7-23 H 8746239096) GLUCOSE (test code = 99 mg/dL 70-110 6767204039) CREATININE (test code = 1.56 mg/dL 0.5-1.04 H 6302168300) TOTAL BILI (test code = 0.5 mg/dL 0.1-1.0 9831676067) CALCIUM (test code = 10.3 mg/dL 8.6-10.6 9137723416) T PROTEIN (test code = 7.1 g/dL 6.3-8.2 7400678837) ALBUMIN (test code = 4.5 g/dL 3.5-5 3976625035) ALK PHOS (test code = 57 U/L 34-122 8850437625) ALTv (test code = 19 U/L 5-35 1742-6) AST(SGOT) (test code = 23 U/L 13-40 5958680688) eGFR Calculation mL/min/1.73m2 (Non-) (test code = 2674913105) eGFR Calculation mL/min/1.73m2 () (test code = 3653799805) KANU (test code = KANU) Association of [...] tests). Lab Interpretation Abnormal (test code = 52953-1) [facility] CenterCOMP. METABOLIC PANEL (13542)2019-10-30 18:52:00 Test Item Value Reference Range Interpretation Comments NA (test code = 140 mmol/L 135-145 9182940810) K (test code = 4.8 mmol/L 3.5-5 3547738401) CL (test code = 102 mmol/L 98-108 6874603225) CO2 TOTAL (test code = 28 mmol/L 23-31 7855798537) AGAP (test code = 2-16 9968636957) BUN (test code = 28 mg/dL 7-23 H 6057030909) GLUCOSE (test code = 99 mg/dL 70-110 5684698410) CREATININE (test code = 1.56 mg/dL 0.5-1.04 H 1390220768) TOTAL BILI (test code = 0.5 mg/dL 0.1-1.4 1662628807) CALCIUM (test code = 10.3 mg/dL 8.6-10.6 9529381528) T PROTEIN (test code = 7.1 g/dL 6.3-8.2 6925946245) ALBUMIN (test code = 4.5 g/dL 3.5-5 9159218860) ALK PHOS (test code = 57 U/L 34-122 2222332026) ALTv (test code = 19 U/L 5-35 1742-6) AST(SGOT) (test code = 23 U/L 13-40 4695635490) eGFR Calculation mL/min/1.73m2 (Non-) (test code = 4792615977) eGFR Calculation mL/min/1.73m2 () (test code = 0900706140) KANU (test code = KANU) Association of [...] tests). Lab Interpretation Abnormal (test code = 93005-9) [facility] CenterGLYCOSYLATED HEMOGLOBIN (A1C)2019-10-30 18:34:00 Test Item Value Reference [...] Indicated Lab Interpretation Abnormal (test code = 96272-3) [facility] CenterGLYCOSYLATED HEMOGLOBIN (A1C)2019-10-30 18:34:00 Test Item Value Reference [...] Indicated Lab Interpretation Abnormal (test code = 44016-8) [facility] WITH [id number] 18:08:00 Test Item Value Reference Range Interpretation Comments WBC (test code = See_Comment [Automated message] 6690-2) The system [employer] generated this result transmitted ref erence range: 4.30 - 1 1.10 10*3/?L. The re ference range was not u sed to interpret this result as normal/abnor mal. RBC (test code = See_Comment [Automated message] 789-8) The system [employer] generated this result transmitted ref erence range: [...] RDW-SD (test code 41.0 fL 39-49.9 = 32717-3) RDW-CV (test code 13.3 % 12-15.5 = 788-0) PLT (test code = See_Comment [Automated message] 587-3) The system [employer] generated this result transmitted ref erence range: 166 - 35 8 10*3/?L. The re ference range was not u sed to interpret this result as normal/abnor mal. MPV (test code = 10.5 fL 9.5-12.9 83560-3) NRBC/100 WBC (test See_Comment [Automat ed message] code = 4229090550) The [employer] which generated this result transmitted ref erence range: 0.0 - 10 .0 /100 WBCs. The refer ence range was not u sed to interpret this result as normal/abnor mal. NRBC x10^3 (test <0.01 See_Comment [Automated message] code = 2678752538) The [employer] which generated this result transmitted ref erence range: 10*3/?L. The reference range was not used to interpr et this result as normal/abnormal . GRAN MAT (NEUT) % 53.9 % (test code = 770-8) IMM GRAN % (test 0.50 % code = 7488011640) LYMPH % (test code 35.7 % = 736-9) MONO % (test code 6.5 % = 5905-5) EOS % (test code = 2.9 % 713-8) BASO % (test code 0.5 % = 706-2) GRAN MAT 3.58 10*3/uL 1.88-7.09 x10^3(ANC) (test code = 4379339488) IMM GRAN x10^3 0.03 10*3/uL 0-0.06 (test code = 4824453650) LYMPH x10^3 (test 2.37 10*3/uL 1.32-3.29 code = 731-0) MONO x10^3 (test 0.43 10*3/uL 0.33-0.92 code = 742-7) EOS x10^3 (test 0.19 10*3/uL 0.03-0.39 code = 711-2) BASO x10^3 (test 0.03 10*3/uL 0.01-0.07 code = 704-7) [facility] WITH [id number] 18:08:00 Test Item Value Reference Range Interpretation Comments WBC (test code = See_Comment [Automated message] 6690-2) The system [employer] generated this result transmitted ref erence range: 4.30 - 1 1.10 10*3/?L. The re ference range was not u sed to interpret this result as normal/abnor mal. RBC (test code = See_Comment [Automated message] 789-8) The system [employer] generated this result transmitted ref erence range: [...] RDW-SD (test code 41.0 fL 39-49.9 = 96428-2) RDW-CV (test code 13.3 % 12-15.5 = 788-0) PLT (test code = See_Comment [Automated message] 777-3) The system whic h generated this result transmitted ref erence range: 166 - 35 8 10*3/?L. The re ference range was not u sed to interpret this result as normal/abnor mal. MPV (test code = 10.5 fL 9.5-12.9 70623-4) NRBC/100 WBC (test See_Comment [Automat ed message] code = 0679888282) The syste m which generated this result transmitted ref erence range: 0.0 - 10 .0 /100 WBCs. The refer ence range was not u sed to interpret this result as normal/abnor mal. NRBC x10^3 (test <0.01 See_Comment [Automated message] code = 8469372837) The syste m which generated this result transmitted ref erence range: 10*3/?L. The reference range was not used to interpr et this result as normal/abnormal . GRAN MAT (NEUT) % 53.9 % (test code = 770-8) IMM GRAN % (test 0.50 % code = 2885419274) LYMPH % (test code 35.7 % = 736-9) MONO % (test code 6.5 % = 5905-5) EOS % (test code = 2.9 % 713-8) BASO % (test code 0.5 % = 706-2) GRAN MAT 3.58 10*3/uL 1.88-7.09 x10^3(ANC) (test code = 2056615673) IMM GRAN x10^3 0.03 10*3/uL 0-0.06 (test code = 3852076131) LYMPH x10^3 (test 2.37 10*3/uL 1.32-3.29 code = 731-0) MONO x10^3 (test 0.43 10*3/uL 0.33-0.92 code = 742-7) EOS x10^3 (test 0.19 10*3/uL 0.03-0.39 code = 711-2) BASO x10^3 (test 0.03 10*3/uL 0.01-0.07 code = 704-7) [facility] [id number] 01:01:19 No acute osseous abnormality. 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 IRickey MD., have reviewed this study and agree with the abovereport.EXAM: XR SPINE THORACIC3 VW,EXAM: XR LUMBAR SPINE 3 VW HISTORY: pain on right side to mid and low back for 7 days. She had backsurgery 1-2 years ago. Now having pain to mid and low back on right side. COMPARISON:?L-spine radi ographs on 10/15/2017 FINDINGS: T-SPINE: The thoracic vertebral bodies are normal in height and in normal alignment.No acute fracture or subluxation. There is mild multilevel degenerative changes in theform of disc spacenarrowing, endplate sclerosis, and osteophytosis. A gastric band is noted. L-SPINE: There are 5 nonrib-bearing lumbar type vertebrae. The lumbar vertebralbodies are normal in height. Mild anterolisthesis of L4 on L5 is seen. Noacute fracture or subluxation. There is mild multilevel degenerative changes in the form of disc spacenarrowing, endplate sclerosis, and osteophytosis. Facet arthropathy affectsthe lower lumbar spine at L3-L5 and L5-S1. 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 Calcified granulomas are noted in the gluteal soft tissues. [facility], Radiant Results Inft User - 06/02/2019 8:01 PM CDTEXAM: XR SPINE THORACIC 3 VW,EXAM: XR LUMBAR SPINE 3 VWHISTORY: pain on right side to mid and low back for 7 days. She had backsurgery 1-2 years ago.Now having pain to mid and low back on right side.COMPARISON: L-spine radiographs on 10/15/2017 FINDINGS:T-SPINE:The thoracic vertebral bodies are normal in height and in normal alignment.No acute fracture or subluxation.There is mild multilevel degenerative changes in the form of disc spacenarrowing, endplate sclerosis, and osteophytosis. A gastric band is noted.L-SPINE:There are 5 nonrib-bearing lumbar type vertebrae. The lumbar vertebralbodies are normal in height. Mild anterolisthesis of L4 on L5is seen. Noacute fracture or subluxation.There is mild [...] reviewed this study and agree with the abovereport.[facility] [id number] 01:01:19 No acute osseous abnormality. 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 Rickey Quezada MD., have reviewed this study and agree with the abovereport.EXAM: XR SPINE THORACIC3 VW,EXAM: XR LUMBAR SPINE 3 VW HISTORY: pain on right side to mid and low back for 7 days. She had backsurgery 1-2 years ago. Now having pain to mid and low back on right side. COMPARISON:?L-spine radi ographs on 10/15/2017 FINDINGS: T-SPINE: The thoracic vertebral bodies are normal in height and in normal alignment.No acute fracture or subluxation. There is mild multilevel degenerative changes in theform of disc spacenarrowing, endplate sclerosis, and osteophytosis. A gastric band is noted. L-SPINE: There are 5 nonrib-bearing lumbar type vertebrae. The lumbar vertebralbodies are normal in height. Mild anterolisthesis of L4 on L5 is seen. Noacute fracture or subluxation. There is mild multilevel degenerative changes in the form of disc spacenarrowing, endplate sclerosis, and osteophytosis. Facet arthropathy affectsthe lower lumbar spine at L3-L5 and L5-S1. 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 Calcified granulomas are noted in the gluteal soft tissues. [facility], Radiant Results Inft User - 06/02/2019 8:01 PM CDTEXAM: XR SPINE THORACIC 3 VW,EXAM: XR LUMBAR SPINE 3 VWHISTORY: pain on right side to mid and low back for 7 days. She had backsurgery 1-2 years ago.Now having pain to mid and low back on right side.COMPARISON: L-spine radiographs on 10/15/2017 FINDINGS:T-SPINE:The thoracic vertebral bodies are normal in height and in normal alignment.No acute fracture or subluxation.There is mild multilevel degenerative changes in the form of disc spacenarrowing, endplate sclerosis, and osteophytosis. A gastric band is noted.L-SPINE:There are 5 nonrib-bearing lumbar type vertebrae. The lumbar vertebralbodies are normal in height. Mild anterolisthesis of L4 on L5is seen. Noacute fracture or subluxation.There is mild [...] reviewed this study and agree with the abovereport.[facility]"
[2022-07-20] MEDS ORDERED: ONDANSETRON 4 MG/2 ML VIAL ONE (12:57)
[2022-07-20] MEDS ORDERED: FENTANYL CITR 100 MCG/2 ML ONE (12:57)
[2022-07-20 13:01] LABS: Hematocrit 37.1 % (36.0-45.0); Lymphocytes % 8.7 % (15.3-44.8); MCV 72.3 fL (80-100); RBC Red Blood Cell Count 5.13 M/uL (3.86-4.86)
[2022-07-20 13:25] LABS: Urine Blood 2+ (Negative); Urine Glucose 2+ (Negative); Urine Protein 2+ (Negative); Urine Specific Gravity >=1.030 (1.005-1.030); Urine pH 5.5 (5.0-7.0)
[2022-07-20 13:26] LABS: Albumin 3.4 g/dL (3.4-5.0); Bilirubin Total 0.6 mg/dL (0.2-1.0); Protein, Total 6.9 g/dL (6.4-8.2)
[2022-07-20] MEDS ORDERED: NA CHLORIDE 0.9% 500 ML ONE (13:32)
--- NOTE | 2022-07-20 13:57 | RAD REPORT ---
EXAM DESCRIPTION: CT - Abdomen Pelvis Wo Contrast - 07/20/2022 1:47 pm CLINICAL HISTORY: Abdominal pain. Upper abdominal pain with diarrhea and fever COMPARISON: Abdomen Pelvis W Contrast dated 06/14/2021 TECHNIQUE: CT imaging of the abdomen and pelvis was performed without contrast. Solid organ, bowel a nd vascular assessment is limited due to lack of IV and oral contrast. All CT scans are performed using dose optimization technique as appropriate and may include automated exposure control or mA/KV adjustment according to patient size. FINDINGS: The lower lung fall are clear.Moderate to large hiatal hernia. The liver, spleen, pancreas, adrenal glands and kidneys are within normal limits for a limited non-co ntrast examination. No bowel obstruction, free air, free fluid or abscess. Small fat containing umbilical hernia. Appende ctomy. Sigmoid diverticulosis coli is present. There is subtle thickening of the sigmoid colon hernandez present in this region. Postsurgical lumbar spine.Fibroid uterus noted. IMPRESSION: No acute intra-abdominal or pelvic findings. Diverticulosis of the sigmoid colon without diverticulitis. Subtle wall thickening is present which w ould benefit from followup colonoscopy if not recently performed. Moderate hiatal hernia. Fibroid uterus. A limited non-contrast examination was performed as detailed.
[2022-07-20] MEDS ORDERED: METRONIDAZOLE 500mg IVPB 500 MG/100 ML BAG IV ONE (15:25)
[2022-07-20] MEDS ORDERED: CIPROFLOXACIN HCL 500 MG TAB ONE (15:25)
[2022-07-20] MEDS ORDERED: DICYCLOMINE HCL 20 MG/2 ML AMP IM ONE (15:51)
--- NOTE | 2022-07-20 17:47 | ER ---
Nurse's Notes [facility] Name: Melanie Lyons Age: 81 yrs Sex: Female : 1940 Arrival Date: 07/20/2022 Time: 12:25 Bed 5 Private MD: Diagnosis: Abdominal pain, unspecified;Diarrhea, unspecified Presentation: 07/20 12:34 Chief complaint: Patient states: Diarrhea, fever, weak, abd pain started last night. ll1 Fever 101 at home. EMS states: VSS. Coronavirus screen: Vaccine status: Patient reports being unvaccinated. Client denies travel out of the [place] in the last 14 days. diarrhea, fatigue, fever, Client presents with at least one sign or symptom that may indicate coronavirus-19. Standard/surgical mask placed on the client. Ebola Screen: Patient denies travel to an Ebola-affected area in the 21 days before illness onset. Initial Sepsis Screen: Does the patient meet any 2 criteria? No. Patient's initial sepsis screen is negative. Does the patient have a suspected source of infection? Yes: Acute abdominal pain. Risk Assessment: Do you want to hurt yourself or someone else? Patient reports no desire to harm self or others. Onset of symptoms was July 19, 2022. 12:34 Method Of Arrival: EMS ll1 12:34 Acuity: VIRAL 3 ll1 Triage Assessment: 12:35 General: Appears uncomfortable, ill, Behavior is cooperative, appropriate for age. ll1 Pain: Complains of pain in abdomen Pain currently is 7 out of 10 on a pain scale. Quality of pain is described as aching, Pain began 1 day ago. Is continuous. Neuro: No deficits noted. Cardiovascular: No deficits noted. GI: Reports upper abdominal pain, diarrhea. Historical: - Allergies: 12:33 Lisinopril; cough; ll1 12:33 PENICILLINS; ll1 - PMHx: 12:33 Congestive heart failure; Hypothyroidism; diabetes mellitus; Hypertensive disorder; ll1 pulmonary edema; - PSHx: 12:33 Appendectomy; heart cath; back; heart stents; ll1 - Immunization history:: Client reports having NOT received the Covid vaccine. - Social history:: Smoking status: Patient denies any tobacco usage or history of. Screenin:36 Abuse screen: Denies threats or abuse. Nutritional screening: No deficits noted. ll1 Tuberculosis screening: No symptoms or risk factors identified. Fall Risk IV access (20 points). Total Hinton Fall Scale indicates No Risk (0-24 pts). Assessment: 13:02 Reassessment: No changes from previously documented assessment. Patient and/or family ll1 updated on plan of care and expected duration. Pain level reassessed. 13:35 Reassessment: No changes from previously documented assessment. Patient and/or family ll1 updated on plan of care and expected duration. Pain level reassessed. 14:16 Reassessment: No changes from previously documented assessment. Patient and/or family ll1 updated on plan of care and expected duration. Pain level reassessed. cleaned of 2nd diarrhea diaper so far. Tolerated well. 15:15 Reassessment: No changes from previously documented assessment. ll1 16:19 Reassessment: No changes from previously documented assessment. changed of 3rd diarrhea ll1 stool diaper. Family member wants her to be admitted for diarrhea and pain all over. Rafat Tom NP informed. Will go speak to patients family. 17:25 Reassessment: No changes from previously documented assessment. Patient and/or family ll1 updated on plan of care and expected duration. Pain level reassessed. Patient is alert, oriented x 3, equal unlabored respirations, skin warm/dry/pink. 17:50 Reassessment: No changes from previously documented assessment. Patient and/or family ll1 updated on plan of care and expected duration. Pain level reassessed. being admitted. Diaper changed again of diarrhea stool. 18:39 Reassessment: No changes from previously documented assessment. Patient and/or family jl7 updated on plan of care and expected duration. Pain level reassessed. Patient is alert, oriented x 3, equal unlabored respirations, skin warm/dry/pink. 20:32 Reassessment: report called to Caitie LIV[facility]ST[facility] for room 210. bb Vital Signs: 12:34 BP 107 / 33; Pulse 72; Resp 18; Temp 97.9; Pulse Ox 100% on R/A; Height 4 ft. 11 in. ll1 (149.86 cm); Pain 6/10; 13:02 BP 108 / 53; Pulse 72; Pulse Ox 100% on R/A; ll1 13:35 BP 123 / 54; Pulse 71; ll1 16:23 BP 114 / 54; Pulse 78; Resp 18; ll1 17:25 BP 113 / 66; Pulse 79; Resp 18; Pulse Ox 100% on R/A; ll1 18:38 BP 118 / 51; Pulse 78; jl7 ED Course: 12:25 Patient arrived in ED. eb 12:29 Jeremiah Tom NP is PHCP. pm1 12:29 Mahesh Jesus MD is Attending Physician. pm1 12:33 Maria Elena Drake, MIKI is Primary Nurse. ll1 12:33 Arm band placed on Patient placed in an exam room, on a stretcher. ll1 12:35 Triage completed. ll1 12:36 Patient has correct armband on for positive identification. Bed in low position. Call ll1 light in reach. Side rails up X2. Client placed on continuous cardiac and pulse oximetry monitoring. NIBP monitoring applied. alarm security or surveillance monitor on. 12:43 Missed attempt(s): 22 gauge in right forearm. Bleeding controlled, band aid applied, ll1 catheter tip intact. 12:45 Inserted saline lock: 22 gauge in left antecubital area, using aseptic technique. Blood ll1 collected. 12:55 Flu Sent. ll1 12:55 COVID-19 SARS RT PCR (Document "Date of Onset" if Symptomatic) Sent. ll1 13:03 Flu Sent. ll1 13:49 Abdomen In Process Unspecified. EDMS 17:46 Reyna Baxter PA-C is Hospitalizing Provider. pm1 18:39 No provider procedures requiring assistance completed. Patient admitted, IV remains in jl7 place. Administered Medications: 13:01 Drug: Zofran (Ondansetron) 4 mg Route: IVP; Site: left antecubital; 1 13:52 Follow up: Response: No adverse reaction ll1 13:01 Drug: fentaNYL (PF) 25 mcg {Note: rass 0, pain 6/10.} Route: IVP; Site: left ll1 antecubital; 13:52 Follow up: Response: No adverse reaction; Pain is decreased; RASS: Alert and Calm (0) [facility] 13:34 Drug: NS 0.9% 500 ml Route: IV; Rate: bolus; Site: left antecubital; 1 16:21 Follow up: Response: No adverse reaction; IV Status: Completed infusion; IV Intake: ll1 500ml 13:34 Drug: fentaNYL (PF) 25 mcg {Note: pain 4/10, rass0.} Route: IVP; Site: left antecubital;ll1 16:21 Follow up: Response: No adverse reaction ll1 15:59 Drug: Flagyl (metroNIDAZOLE) 500 mg Volume: 100 ml; Route: IVPB; Rate: 200 ml/hr; ll1 Infused Over: 30 mins; Site: left antecubital; 16:34 Follow up: Response: No adverse reaction; IV Status: Completed infusion; IV Intake: ll1 100ml 16:00 Drug: Cipro (ciprofloxacin) 500 mg Route: PO; ll1 16:23 Follow up: Response: No adverse reaction ll1 16:00 Drug: Bentyl (dicyclomine) 20 mg Route: IM; Site: left vastus lateralis; ll1 16:34 Follow up: Response: No adverse reaction ll1 Medication: 12:36 VIS not applicable for this client. ll1 Intake: 16:21 IV: 500ml; Total: 500ml. ll1 16:34 IV: 100ml; Total: 600ml. ll1 Outcome: 17:47 Decision to Hospitalize by Provider. pm1 21:10 Patient left the ED. bb Signatures: Dispatcher [employer] EDRafia Kelly RN RN bb Jeremiah Tom, PHARMACY SALESPERSON PHARMACY SALESPERSON pm1 Arnaud Vergara RN RN [id number] Abby Zimmerman Lynsay, RN RN ll1
--- NOTE | 2022-07-20 17:48 | EDPHYS ---
Physician Documentation [facility] Name: Melanie Lyons Age: 81 yrs Sex: Female : 1940 Arrival Date: 07/20/2022 Time: 12:25 Bed 5 Private MD: STEPHEN Physician Mahesh Jesus HPI: 07/20 12:40 This 81 yrs old Female presents to ER via EMS with complaints of Abdominal pm1 pain and diarrhea. 12:40 The patient presents to the emergency department with diarrhea, 3 times since the onset pm1 of symptoms, abdominal pain, of the right upper quadrant and left upper quadrant, described as achy, and does not radiate. Onset: The symptoms/episode began/occurred last night. Possible causes: unknown. The symptoms are aggravated by nothing. The symptoms are alleviated by nothing. Associated signs and symptoms: Pertinent positives: abdominal pain, diarrhea, fever, Pertinent negatives: dysuria, nausea, vomiting. Severity of symptoms: in the emergency department the symptoms are unchanged. It is unknown whether or not the patient has had similar symptoms in the past. The patient has been recently seen by a physician: the patient's primary care provider, with different complaint(s), ear pain related to cerumen impaction and taking ear drops for treatment. Historical: - Allergies: 12:33 Lisinopril; cough; ll1 12:33 PENICILLINS; ll1 - PMHx: 12:33 Congestive heart failure; Hypothyroidism; diabetes mellitus; Hypertensive disorder; ll1 pulmonary edema; - PSHx: 12:33 Appendectomy; heart cath; back; heart stents; ll1 - Immunization history:: Client reports having NOT received the Covid vaccine. - Social history:: Smoking status: Patient denies any tobacco usage or history of. ROS: 12:40 Eyes: Negative for injury, pain, redness, and discharge, ENT: Negative for injury, pm1 pain, and discharge, Cardiovascular: Negative for chest pain, palpitations, and edema, Respiratory: Negative for shortness of breath, cough, wheezing, and pleuritic chest pain. 12:40 Back: Negative for injury and pain, : Negative for injury, bleeding, discharge, and swelling, MS/Extremity: Negative for injury and deformity, Skin: Negative for injury, rash, and discoloration. 12:40 Constitutional: Positive for fever. 12:40 Abdomen/GI: Positive for abdominal pain, diarrhea, of the right upper quadrant and left upper quadrant, Negative for nausea, vomiting. 12:40 Neuro: Positive for generalized weakness, Negative for focal weakness. 12:40 All other systems are negative. Exam: 12:40 Constitutional: This is a well developed, well nourished patient who is awake, alert, pm1 and in no acute distress. Head/Face: Normocephalic, atraumatic. 12:40 Back: No spinal tenderness. No costovertebral tenderness. Full range of motion. Skin: Warm, dry with normal turgor. Normal color with no rashes, no lesions, and no evidence of cellulitis. MS/ Extremity: Pulses equal, no cyanosis. Neurovascular intact. Full, normal range of motion. 12:40 Eyes: Exam is negative for acute changes, Periorbital structures: no acute changes, Extraocular movements: no acute changes, Conjunctiva: no acute changes, no injection. 12:40 ENT: Mouth: no acute changes, Lips: normal, moist, Oral mucosa: normal, pink and intact, moist. 12:40 Cardiovascular: Exam negative for acute changes, Rate: normal, Rhythm: regular, Pulses: no pulse deficits are appreciated, Heart sounds: normal. 12:40 Respiratory: Exam negative for acute changes, respiratory distress, shortness of breath. 12:40 Abdomen/GI: Inspection: obese Palpation: soft, in all quadrants, mild abdominal tenderness, in the mid upper abdomen. 12:40 Neuro: Exam negative for acute changes, Orientation: is normal, Mentation: is normal, Motor: is normal, moves all fours. Vital Signs: 12:34 BP 107 / 33; Pulse 72; Resp 18; Temp 97.9; Pulse Ox 100% on R/A; Height 4 ft. 11 in. ll1 (149.86 cm); Pain 6/10; 13:02 BP 108 / 53; Pulse 72; Pulse Ox 100% on R/A; ll1 13:35 BP 123 / 54; Pulse 71; ll1 16:23 BP 114 / 54; Pulse 78; Resp 18; ll1 17:25 BP 113 / 66; Pulse 79; Resp 18; Pulse Ox 100% on R/A; ll1 18:38 BP 118 / 51; Pulse 78; jl7 MDM: 12:29 Patient medically screened. pm1 13:18 Data reviewed: vital signs. Data interpreted: Pulse oximetry: on room air is 100 %. pm1 Interpretation: normal. 14:50 ED course: Patient with pain 0/10. pm1 14:50 Differential diagnosis: Nonspecific abd pain, diverticulitis, viral gastroenteritis, pm1 influenza, covid. 14:50 Counseling: I had a detailed discussion with the patient and/or guardian regarding: the pm1 historical points, exam findings, and any diagnostic results supporting the discharge/admit diagnosis, lab results, radiology results, the need for outpatient follow up, to return to the emergency department if symptoms worsen or persist or if there are any questions or concerns that arise at home, Pending administration of antibiotics and then will discharge the patient home. 17:36 ED course: Patient's daughter is requesting the patient to be admitted to the hospital pm1 because she is reporting that the patient is having continued pain. Patient without any nausea or vomiting and currently denies any pain. Discussed with hospitalist and patient can be admitted for observation if she would like to stay in the hospital. 07/20 12:39 Order name: CBC with Diff; Complete Time: 13:03 pm1 07/20 12:39 Order name: CMP; Complete Time: 13:27 pm1 07/20 12:39 Order name: Lipase; Complete Time: 13:27 pm1 07/20 12:40 Order name: COVID-19 SARS RT PCR (Document "Date of Onset" if Symptomatic); Complete pm1 Time: 13:40 07/20 12:40 Order name: Flu; Complete Time: 13:25 pm1 07/20 13:26 Order name: Urine Dipstick-Ancillary; Complete Time: 13:27 EDMS 07/20 13:39 Order name: Abdomen ; Complete Time: 14:07 EDMS 07/20 12:39 Order name: IV Saline Lock; Complete Time: 12:49 pm1 07/20 12:39 Order name: Labs collected and sent; Complete Time: 12:49 pm1 07/20 13:13 Order name: Urine Dipstick-Ancillary (obtain specimen); Complete Time: 13:30 pm1 Administered Medications: 13:01 Drug: Zofran (Ondansetron) 4 mg Route: IVP; Site: left antecubital; [facility] 13:52 Follow up: Response: No adverse reaction ll1 13:01 Drug: fentaNYL (PF) 25 mcg {Note: rass 0, pain 6/10.} Route: IVP; Site: left ll1 antecubital; 13:52 Follow up: Response: No adverse reaction; Pain is decreased; RASS: Alert and Calm (0) ll1 13:34 Drug: NS 0.9% 500 ml Route: IV; Rate: bolus; Site: left antecubital; ll1 16:21 Follow up: Response: No adverse reaction; IV Status: Completed infusion; IV Intake: ll1 500ml 13:34 Drug: fentaNYL (PF) 25 mcg {Note: pain 4/10, rass0.} Route: IVP; Site: left antecubital;ll1 16:21 Follow up: Response: No adverse reaction ll1 15:59 Drug: Flagyl (metroNIDAZOLE) 500 mg Volume: 100 ml; Route: IVPB; Rate: 200 ml/hr; ll1 Infused Over: 30 mins; Site: left antecubital; 16:34 Follow up: Response: No adverse reaction; IV Status: Completed infusion; IV Intake: ll1 100ml 16:00 Drug: Cipro (ciprofloxacin) 500 mg Route: PO; ll1 16:23 Follow up: Response: No adverse reaction ll1 16:00 Drug: Bentyl (dicyclomine) 20 mg Route: IM; Site: left vastus lateralis; ll1 16:34 Follow up: Response: No adverse reaction ll1 Disposition Summary: 07/20/22 17:47 Hospitalization Ordered Hospitalization Status: Observation pm1 Provider: Reyna Baxter pm1 Location: Telemetry/MedSurg (observation) pm1 Condition: Stable pm1 Problem: new pm1 Symptoms: have improved pm1 Bed/Room Type: Standard pm1 Room Assignment: 210(07/20/22 19:58) dw Diagnosis - Abdominal pain, unspecified pm1 - Diarrhea, unspecified pm1 Forms: - Medication Reconciliation Form pm1 - SBAR form pm1 Signatures: Dispatcher [employer] Sofia Brown RN MIKI dw Jeremiah Tom, TERRAZZO TILE SETTER TERRAZZO TILE SETTER pm1 Maria Elena Drake RN RN ll1 Corrections: (The following items were deleted from the chart) 13:39 12:43 Abdomen Pelvis W Con+CT.RAD.BRZ ordered. EDMS EDMS 19:58 17:47 pm1 dw
--- NOTE | 2022-07-20 19:30 | P.HP ---
Certification for Inpatient Patient admitted to: Observation With expected LOS: <2 Midnights Patient will require the following post-hospital care: None Practitioner: I am a practitioner with admitting privileges, knowledge of patient current condition, hospital course, and medical plan of care. Services: Services provided to patient in accordance with Admission requirements found in Title 42 Section 412.3 of the Code of Federal Regulations Patient History Date of Service: 07/20/22 Reason for admission: Gastroenteritis History of Present Illness: Patient is an 81 year old female with past medical history significant for CHF, hypertension, and type 2 diabetes who presented to the ED with complaints of abdominal pain, fever, diarrhea, and generalized weakness for 24 hours. She denies any sick contacts, recent antibiotic use, or travel. Her vital signs are stable. Labs significant for WBC 11.9, hgb 11.9, sodium 131, BUN 25, Cr 1.64. Urine positive for glucose, ketones, blood and protein. CT abdomen pelvis showed "No acute intra-abdominal or pelvic findings. Diverticulosis of the sigmoid colon without diverticulitis. Subtle wall thickening is present." She was given fluids, cipro, flagyl, bentyl, fentany in ED with mild relief in symptoms. Family does not feel comfortable taking her home given her persistent symptoms and weakness. ED provider wishes to admit patient for observation. Allergies Penicillins Allergy (Verified 12/15/21 21:45) Itching Home Medications: Aspirin [Aspirin EC 81 MG] 81 mg PO DAILY #30 tablet. 07/15/21 Clopidogrel Bisulfate [Plavix*] 75 mg PO DAILY #30 tablet 07/15/21 Levothyroxine [Synthroid*] 75 mcg PO [id number] 07/20/21 Metoprolol Tartrate [Lopressor*] 50 mg PO DAILY 07/20/21 Pravastatin Sodium 20 mg PO SEECOM 07/20/21 Trazodone HCl [Desyrel] 100 mg PO BEDTIME 07/20/21 Losartan Potassium [Cozaar*] 50 mg PO BEDTIME 12/15/21 Citalopram Hydrobromide [Citalopram HBr] 40 mg PO DAILY 06/29/22 Dexlansoprazole [Dexilant] 60 mg PO DAILY 06/29/22 Esomeprazole Mag Trihydrate [Nexium] 40 mg PO DAILY 06/29/22 Furosemide [Lasix] 40 mg PO DAILYPRN PRN 06/29/22 Ibandronate Sodium 150 mg PO DAILY 06/29/22 Spironolactone [Aldactone*] 25 mg PO DAILY 06/29/22 - Past Medical/Surgical History Diabetic: Yes -: Coronary artery disease -: CHF -: Hypertension -: Hypothyroidism -: CKD -: Cardiac catheterization with PCI -: Appendectomy -: Back Surgery Psychosocial/ Personal History: patient lives at home with her daughter. - Family History Father -: Diabetes - Social History Alcohol use: No CD- Drugs: No Caffeine use: No Review of Systems General: Fever, Weakness Gastrointestinal: Abdominal Pain, Diarrhea Physical Examination - Physical Exam General: Alert, In no apparent distress, Obese HEENT: Atraumatic, PERRLA, EOMI, Sclerae nonicteric Neck: Supple, 2+ carotid pulse no bruit, No LAD, Without JVD or thyroid abnormality Respiratory: Clear to auscultation bilaterally, Normal air movement Cardiovascular: Regular rate/rhythm, Normal S1 S2 Gastrointestinal: Normal bowel sounds, Soft and benign, Non-distended Musculoskeletal: No tenderness Integumentary: No rashes Neurological: Normal speech, Normal strength at 5/5 x4 extr, Normal tone, Normal affect - Studies Laboratory Data (last 24 hrs) 07/20/22 12:51: Sodium 131 L, Potassium 4.0, BUN 25 H, Creatinine 1.64 H, Glucose 163 H, Total Bilirubin 0.6, AST 21, ALT 27, Alkaline Phosphatase 65, Lipase 92 07/20/22 12:51: WBC 11.90 H, Hgb 11.9 L, Hct 37.1, Plt Count 265 Microbiology Data (last 24 hrs): 07/20/22 12:51 Nasopharnyx Influenza Type A Antigen Screen - Final 07/20/22 12:51 Nasopharnyx Influenza Type B Antigen Screen - Final Assessment and Plan - Problems (Diagnosis) (1) Gastroenteritis Current Visit: Yes Status: Acute (2) RODGER (acute kidney injury) Current Visit: Yes Status: Acute (3) Coronary artery disease Current Visit: Yes Status: Chronic Qualifiers: Coronary Disease-Associated Artery/Lesion type: ruby artery [place] vs. transplanted heart: ruby heart Associated angina: without angina Qualified Code(s): I25.10 - Atherosclerotic heart disease of ruby coronary artery without angina pectoris (4) Diabetes mellitus type 2 in obese Current Visit: Yes Status: Chronic (5) Hypothyroidism Current Visit: Yes Status: Chronic Qualifiers: Hypothyroidism type: acquired Qualified Code(s): E03.9 - Hypothyroidism, unspecified (6) CKD (chronic kidney disease) Current Visit: Yes Status: Chronic Qualifiers: Chronic kidney disease stage: stage 3 (moderate) Chronic kidney disease stage 3 subtype: stage 3b (GFR 30-44) Qualified Code(s): N18.32 - Chronic kidney disease, stage 3b (7) CHF (congestive heart failure), NYHA class I Current Visit: Yes Status: Chronic Qualifiers: Congestive heart failure type: diastolic Congestive heart failure chronicity: chronic Qualified Code(s): I50.32 - Chronic diastolic (congestive) heart failure - Plan Gentle IV hydration. Monitor for signs of fluid overload given CHF. Bentyl and immodium PRN diarrhea/cramping. Stool studies ordered, although suspect will be negative. Clear liquid diet, advance as tolerated for bowel rest. Glucose control with sliding scale. Patient received cipro and flagyl in ED. Will hold off on further antibiotics as this is likely viral in origin. Monitor and replete electrolytes per protocol. Reconcile and continue home medications. Lovenox for VTE prophylaxis, renally dosed. Full code. - Advance Directives Does patient have a Living Will: No Does patient have a Durable POA for Healthcare: Yes
[2022-07-20] MEDS ORDERED: ONDANSETRON 4 MG/2 ML VIAL IV PRN (21:11)
[2022-07-20] MEDS ORDERED: ACETAMINOPHEN 500 MG TAB PO PRN (21:11)
[2022-07-20] MEDS ORDERED: ALBUTEROL 2.5 MG/3 ML NEB SOL NEB PRN (21:43)
[2022-07-20] MEDS: DICYCLOMINE HCL 10 MG CAP PO PRN (21:49)
[2022-07-20] MEDS: LOPERAMIDE HCL 2 MG CAPSULE PO PRN (21:49)
[2022-07-20] MEDS: INSULIN -REGULAR HUMAN 50 UNIT/0.5 ML ML SQ SCH (21:49)
[2022-07-20] MEDS: NA CHLORIDE 0.9% 1,000 ML IV SCH (21:49)
[2022-07-20 22:44] VITALS: BMI 36.1
[2022-07-21] MEDS: METRONIDAZOLE 500mg IVPB 500 MG/100 ML BAG IV SCH ×3 (01:36→16:58)
[2022-07-21] MEDS: METHYLPREDNISOLONE 40 MG INJ IV SCH ×4 (01:57→17:03)
[2022-07-21] MEDS ORDERED: Levofloxacin500mg IV 500 MG/100 ML BAG IV ONE (04:00)
[2022-07-21] MEDS ORDERED: MORPHINE 4 MG/ML SYR IV ONE (04:04)
[2022-07-21] MEDS ORDERED: ACETAMINOPHEN 325 MG TABLET ONE (04:06)
[2022-07-21] MEDS ORDERED: ACETAMINOPHEN 325 MG TABLET PO PRN (05:00)
[2022-07-21] MEDS: PANTOPRAZOLE 40MG TABLET PO SCH (05:45)
[2022-07-21] MEDS: LEVOTHYROXINE SOD 0.075 MG TAB PO SCH (05:46)
[2022-07-21 06:08] LABS: Absolute Lymphocytes (CBC) 0.4 K/uL (0.7-4.9); Hematocrit 34.9 % (36.0-45.0); Lymphocytes % 4.8 % (15.3-44.8); MCV 72.7 fL (80-100); MPV 8.4 fL (7.6-11.3)
[2022-07-21 06:32] LABS: Magnesium 1.7 mg/dL (1.8-2.4); Phosphorus 1.7 mg/dL (2.5-4.9); Thyroid Stimulating Hormone 0.88 uIU/mL (0.360-3.740)
[2022-07-21 06:58] LABS: Dohle Bodies PRESENT; Platelet Estimate ADEQ; White Blood Cell Scan OK (OK)
[2022-07-21 06:59] LABS: Blood Morphology Comment NOT SEEN (NOT SEEN)
[2022-07-21] MEDS: ENOXAPARIN 30 MG/0.3 ML SQ SCH (08:10)
[2022-07-21] MEDS: ASPIRIN EC 81 MG TAB PO SCH (08:11)
[2022-07-21] MEDS: CLOPIDOGREL 75 MG TABLET PO SCH (08:11)
[2022-07-21] MEDS: Lifitegrast [Xiidra] Droperette OPTH SCH ×2 (08:12→21:00)
[2022-07-21] MEDS: INSULIN -REGULAR HUMAN 50 UNIT/0.5 ML ML SQ SCH ×4 (08:13→21:01)
[2022-07-21] MEDS: CITALOPRAM 10 MG TABLET PO SCH (08:16)
[2022-07-21] MEDS: METOPROLOL XL 50 MG TAB PO SCH (08:17)
[2022-07-21] MEDS: POTASS/SODIUM PHOSPHATE 1 PKT POWD.PACK PO SCH ×3 (08:21→09:30)
[2022-07-21] MEDS ORDERED: MAGNESIUM SULFATE 1 gm IVPB 1 GM/100 ML BAG IV ONE ×3 (09:00→10:00)
[2022-07-21] MEDS ORDERED: SODIUM PHOSPHATE 20 MM in NA CHLORIDE 0.9% 250 ML IV ONE (10:00)
[2022-07-21] MEDS: NA CHLORIDE 0.9% 1,000 ML IV SCH ×2 (10:31→21:02)
[2022-07-21] MEDS: DICYCLOMINE HCL 10 MG CAP PO PRN ×2 (14:55→21:01)
[2022-07-21] MEDS: LOPERAMIDE HCL 2 MG CAPSULE PO PRN ×2 (14:55→21:01)
[2022-07-21] MEDS ORDERED: TRAZODONE 50 MG TABLET PO SCH (21:00)
[2022-07-21] MEDS ORDERED: ROSUVASTATIN 10 MG TAB PO SCH (21:00)
[2022-07-22] MEDS: METHYLPREDNISOLONE 40 MG INJ IV SCH ×3 (00:46→11:51)
[2022-07-22] MEDS: METRONIDAZOLE 500mg IVPB 500 MG/100 ML BAG IV SCH ×2 (00:46→09:46)
[2022-07-22 06:11] LABS: Magnesium 2.3 mg/dL (1.8-2.4); Potassium 3.6 mmol/L (3.5-5.1)
[2022-07-22] MEDS: PANTOPRAZOLE 40MG TABLET PO SCH (06:11)
[2022-07-22] MEDS: LEVOTHYROXINE SOD 0.075 MG TAB PO SCH (06:11)
[2022-07-22] MEDS: METOPROLOL XL 50 MG TAB PO SCH (09:00)
[2022-07-22] MEDS ORDERED: POTASSIUM CL SA 10 MEQ TAB PO ONE (09:00)
[2022-07-22] MEDS: Lifitegrast [Xiidra] Droperette OPTH SCH (09:00)
[2022-07-22] MEDS: INSULIN -REGULAR HUMAN 50 UNIT/0.5 ML ML SQ SCH ×2 (09:47→11:56)
[2022-07-22] MEDS: CITALOPRAM 10 MG TABLET PO SCH (09:49)
[2022-07-22] MEDS: ASPIRIN EC 81 MG TAB PO SCH (09:49)
[2022-07-22] MEDS: CLOPIDOGREL 75 MG TABLET PO SCH (09:49)
[2022-07-22] MEDS: ENOXAPARIN 30 MG/0.3 ML SQ SCH (09:49)
[2022-07-22] MEDS: POTASS/SODIUM PHOSPHATE 1 PKT POWD.PACK PO SCH ×2 (09:50→09:52)
[2022-07-22 10:46] VITALS: O2SAT 96
[2022-07-22 14:06] VITALS: BP 125/57; TEMP 97.6
[2022-07-23] MEDS ORDERED: Levofloxacin 250mg IV 250 MG/50 ML BAG IV SCH ×2 (02:00→04:00)
== END 2022-07-22 13:00 | disposition home or self-care (01) ==
LOC: ER 12:00 → ERHOLD 19:13 → 2ND 20:35
PROVIDERS: ADMIT Hospitalist; ATTEND Hospitalist
DX: K52.9 Noninfective gastroenteritis and colitis, unspecified (principal); N17.9 Acute kidney failure, unspecified; I10 Essential (primary) hypertension; E11.9 Type 2 diabetes mellitus without complications; I50.32 Chronic diastolic (congestive) heart failure; N18.32 Chronic kidney disease, stage 3b; E03.9 Hypothyroidism, unspecified; I25.10 Atherosclerotic heart disease of native coronary artery without angina pectoris; Z88.0 Allergy status to penicillin; K57.30 Diverticulosis of large intestine without perforation or abscess without bleeding
CPT/HCPCS: 96365; 96361; 85025 ×2; 80048 ×2; 36415 ×2; 83735 ×2; 89055; 84100 ×2; 80061; 82947 ×7; 84443; 81003; 83036; 83690; 80053; 87804 ×2; 74176; 97116; 97161; 97530; 94640; 96375; 96372; 99284; U0003; J0500; J1815 ×7; J1650 ×2; J3010; J3475; J7050; J7040; J7030 ×2; J2405; J2920 ×8; G0378

== ENCOUNTER 2023-04-18 14:51 | Observation (INO) | payer OTHER ==
--- OUTSIDE RECORDS SUMMARY | 2023-04-18 15:33 | XMS REPORT | Continuity of Care Document ---
:1940 Author Organization [facility] t Address [address] [place] [address] [place] [id number] Care Team Providers Name Role Phone Alber Gomez DO Tim Primary Care Physician [phone] ROBERTO WHITAKER Attending Clinician Unavailable Alber Gomez Attending Clinician Unavailable CRYSTAL JAMES Attending Clinician Unavailable Ofelia Grove MD Attending Clinician BRUNO KAPADIA Attending Clinician Unavailable Doctor Unassigned, [place] Attending Clinician Unavailable Christina Lucio MD Attending Clinician Viola Steele Attending Clinician Unavailable Evelio PÉREZ, Jose Shah Attending Clinician Unavailable Roberto Whitaker Attending Clinician LUIS DRAKE Attending Clinician Unavailable Lab, [facility] Attending Clinician Unavailable Edward Brasher Attending Clinician EDWARD RODRÍGUEZ Attending Clinician Unavailable Jenny Giraldo Attending Clinician EKDESIRE ORTEGAARIA Attending Clinician Unavailable EkDesire ortega Attending Clinician [phone] Omid Dorsey MD Attending Clinician OMID DORSEY Attending Clinician Unavailable Provider, [facility] Care Attending Clinician Unavailable Martha Horton PA-C Attending Clinician MARTHA HORTON Attending Clinician Unavailable JOSE FRASER Attending Clinician Unavailable SAKINA MILLAN Attending Clinician Unavailable SAKINA MILLAN Attending Clinician Unavailable SHEEBA DICKERSON Attending Clinician Unavailable Patricia Shi MD Attending Clinician Sheeba Dickerson MD Attending Clinician Sakina Millan MD Attending Clinician Henry Jon DO Attending Clinician NICOLE PILLAI Attending Clinician Unavailable FRANCISCA MARTINS Attending Clinician Unavailable Warren PAC, K Shahla Attending Clinician Luis Drake MD Attending Clinician 1, [facility] Sleep [facility] Bed Attending Clinician Unavailable Only, [facility] Test Attending Clinician Unavailable Kevin Greene MD Attending Clinician [facility], [facility] Sleep Lab Attending Clinician Unavailable Ko Dukes Attending Clinician 2, [facility] Lab Attending Clinician Unavailable Bhavin Clayton DO Attending Clinician BHAVIN CLAYTON Attending Clinician Unavailable BHAVIN CLAYTON Attending Clinician Unavailable Motility, Endoscopy Attending Clinician Unavailable Sofia Rios RN Attending Clinician KELLY MITTAL Attending Clinician Unavailable Sonia AUTO EMISSIONS TECHNICIAN, Everton T Attending Clinician Kyrie PÉREZ, Kelly Attending Clinician PATRICIA SHI Attending Clinician Unavailable Maikel PÉREZ, Jeffrey Maloney Attending Clinician Unknown, Attending Attending Clinician Unavailable Gramm AUTO EMISSIONS TECHNICIAN, Francisca A Attending Clinician Crystal James MD Attending Clinician Selma Evans Attending Clinician CRYSTAL JAMES Admitting Clinician Unavailable KELLY MITTAL Admitting Clinician Unavailable Kyrie PÉREZ, Kelly Admitting Clinician SARA AVERY Admitting Clinician Unavailable JOSE FRASER Admitting Clinician Unavailable Payers Payer Name Policy Type Policy Number Effective Date Expiration Date Claudia baltazar AETNA MEDICARE [id number] 2016 ADV 00:00:00 [employer] [id number] 2021 Common Spiri t 00:00:00 [facility] Problems Condition Condition Condition Status Onset Resolution Last Treating Co mments Source Name Details Category Date Date Treatment Clinician Date PTOSIS, PTOSIS, Diagnosis Active 2022-10-15 Memoria ECTROPION, ECTROPION, - 15:22:00 l PROPTOSIS, PROPTOSIS, 00:00: He arian EPIPHORA, EPIPHORA, 00 Active 09/26/2022 [facility] CHRONIC CHRONIC Diagnosis Active 2021-11-12 Memoria LACRIMAL LACRIMAL 10-12 13:56:00 l CANALICULI CANALICULI 00:00: He arian TIS OF TIS OF 00 BILATE BILATE Active 10/12/2021 [facility] UNK UNK Diagnosis Active 2021-02-21 Mem oria Active 02-10 10:10:00 l 02/10/2021 00:00: Beny hurley [facility] Microalbum Microalbum Disease Active U nivers inuria inuria 5-24 ity of 00:00: [address] Thiamine Thiamine Disease Active 2019-09 Unive rs deficiency deficiency 2-16 it y of 00:00: [place] 00 Medical Branch Iron Iron Disease Active 2019-09 Univers deficiency deficiency 2-16 it y of 00:00: Medical Branch Venous Venous Disease Active 2019-09 Univers insufficie insufficie 2-09 it y of ncy ncy 00:00: Medical Branch Pulmonary Pulmonary Disease Active Uni vers embolism embolism 3-21 ity of 00:00: Medical Branch History of History of Disease Active Overview : Univers colon colon 9-20 Formattin ity of polyps polyps 00:00: g of this 00 note Medical might be Branch different from the original. Added automatic ally from request for surgery [id number] Asthma Asthma Disease Active Univers exacerbati exacerbati 1-22 it y of on on 00:00: Medical Branch Renal Renal Disease Active Univers cyst, cyst, 1-21 ity of right right 00:00: Medical Branch Radiculopa Radiculopa Disease Active U nivers thy thy 2-01 ity of 00:00: Medical Branch Spinal Spinal Disease Active Univers stenosis, stenosis, 1-31 ity of lumbar lumbar 00:00: [place] region, region, 00 Medical without without Branch neurogenic neurogenic claudicati claudicati on on Enlarged Enlarged Disease Active 2016-09 Unive rs uterus uterus 0-31 ity of 00:00: Medical Branch Pelvic Pelvic Disease Active 2016-09 Univers mass mass 0-31 ity of 00:00: Medical Branch Thickened Thickened Disease Active 2016-09 Uni vers endometriu endometriu 0-31 it y of m m 00:00: Medical Branch Fibroid Fibroid Disease Active 2016-09 Univers uterus uterus 0-31 ity of 00:00: [place] 00 Medical Branch Fatty Fatty Disease Active 2016-09 Univers liver liver 0-05 ity of 00:00: [place] 00 Medical Branch Abnormal Abnormal Disease Active Unive rs LFTs LFTs 9-21 ity of (liver (liver 00:00: [place] function function 00 Medica l tests) tests) Branch Chronic Chronic Disease Active Univers insomnia insomnia 9-21 ity of 00:00: [place] 00 Medical Branch 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 9-21 it y of ia ia 00:00: [place] [address] Medical Branch [id number] Type 2 [place] 20006 diabetes Spirit mellitus - CHI with other diabetic [facility] kidney Medical complicati Center on [id number] Type 2 Problem Commo n 05 diabetes Spirit mellitus - CHI with [facility] chronic Medical kidney Center disease [id number] Depression Problem Com mon , major, Spirit single - CHI episode, [facility] [id number] Chronic Problem Commo n kidney Spirit disease, - [facility] [id number] Body mass Problem Com mon index Spirit [BMI] - CHI 37.0-37.9, [facility] [id number] Morbid Problem Commo n 9104 (severe) Spirit obesity - CHI due to [facility] [id number] Obstructiv Problem Com mon e sleep Spirit apnea - [facility] Congestive 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 - [facility] [id number] Osteoporos Problem Com mon is, Spirit unspecifie - [facility] d osteoporos [facility] is type, Medical unspecifie Center d pathologic al fracture presence [id number] Nonalcohol Problem Co mmon ic fatty Spirit liver - CHI disease [facility] [id number] Type 2 Problem Common diabetes Spirit mellitus - CHI with [facility] without Center long-term current use of insulin [id number] Coronary Problem Comm on artery Spirit disease of - CHI [place] artery of [facility] point lay ira Medical heart with Center stable angina pectoris [id number] Essential Problem Comm on hypertensi Spirit on - [facility] [id number] Stented Problem Commo n coronary Spirit artery - CHI [facility] [id number] Acquired Problem Comm on hypothyroi Spirit dism - [facility] [id number] GERD Problem Common without Spirit esophagiti - CHI s [facility] [id number] Primary Problem Common insomnia Spirit - CHI [facility] [id number] Mixed Problem Common hyperlipid Spirit emia - CHI [facility] [id number] Acute Problem Common adjustment Spirit disorder - CHI with [facility] [id number] Paroxysmal Problem Co mmon atrial Spirit fibrillati - CHI on [facility] [id number] Diverticul Problem Co mmon osis large Spirit intestine - [facility] abscess Center w/o bleeding No known No known Disease Metho di active active st problems problems Hospit a l Depressive Problem Resolve 2021-11-07 Memoria disorder Depressive d 08:39:00 l (disorder) disorder Herm josefina (disorder) Resolved Problem 11/07/2021 Medical Group,[facility] History of History Problem Resolve 2021-11-07 Memoria - [facility] - d 08:39:00 l palsy [facility] [place] (context-d palsy ependent (context-d category) ependent category) Resolved Problem 11/07/2021 Medical Group,[facility] History of History Problem Resolve 2021-11-07 Memoria Lyme of Lyme d 08:39:00 l disease disease [place] (situation (situation ) ) Resolved Problem 11/07/2021 [facility] Chronic Chronic Problem Active 2021-11-07 Me moria congestive congestive 08:39:00 l heart heart [place] failure failure (disorder) (disorder) Active Problem 11/07/2021 Medical [facility] Diabetes Diabetes Problem Active 2021-11-07 Memoria mellitus mellitus 08:39:00 l (disorder) (disorder) He rmann Active Problem 11/07/2021 [facility] Ectropion Ectropion Problem Active 2021-11-07 Memoria of eyelid of eyelid 08:39:00 l (disorder) (disorder) He rmann Active Problem 11/07/2021 Medical [facility] Heartburn Heartburn Problem Active 2021-11-07 Memoria (finding) (finding) 08:39:00 l Active Chong Problem 11/07/2021 Medical Group,[facility] Hypertensi Hypertens Problem Active 2021-11-07 Memoria ve karolyn 08:39:00 l disorder, disorder, Herm josefina systemic systemic arterial arterial (disorder) (disorder) Active Problem 11/07/2021 Medical [facility] Hypothyroi Hypothyro Problem Active 2021-11-07 Memoria dism idism 08:39:00 l (disorder) (disorder) He rmann Active Problem 11/07/2021 Medical [facility] Morbid Morbid Problem Active 2021-11-07 Ramses emanuel obesity obesity 08:39:00 l (disorder) (disorder) He rmann Active Problem 11/07/2021 Medical [facility] Peripheral Periphera Problem Active 2021-11-07 Memoria arterial l arterial 08:39:00 l disease disease [place] Active Problem 11/07/2021 [facility] Ptosis of Ptosis of Problem Active 2021-11-07 Memoria eyelid eyelid 08:39:00 l (disorder) (disorder) He rmann Active Problem 11/07/2021 [facility] Deep Deep Problem Resolve 2021-11-07 Ramses emanuel venous venous d 08:39:00 l thrombosis thrombosis He rmann (disorder) (disorder) Resolved Problem 11/07/2021 Medical Group,[facility] Edema Edema Disease Active Univers ity [facility] Type 2 Type 2 Disease Active Univers diabetes diabetes ity of mellitus mellitus [place] without without Medical complicati complicati Br anch on, on, without without long-term long-term current current use of use of insulin insulin Dry eyes Dry eyes Disease Active Unive rs ity [facility] Edema Edema Disease Active Univers ity [facility] Esophageal Esophageal Disease Active U nivers reflux reflux ity [facility] Obesity Obesity Disease Active [facility] Parapelvic Parapelvic Disease Active U nivers renal cyst renal cyst it y of [facility] Chronic Chronic Disease Active Univers low back low back ity of pain [place] sciatic[place] sciatica Medica Branch Allergies, Adverse Reactions, Alerts Allergy Allergy [...] INGREDI 02-04 ity of 00:00: [place] 00 Medical Mica Metoprol Propensi Active Rash Univer s ol ty to 02-04 ity of adverse 00:00: [place] reaction 00 Medical s Branch LOSARTAN DRUG Active Dizziness Unive rs INGREDI 06-09 ity of 00:00: [place] 00 Medical Branch AMLODIPI DRUG Active Other-Cmnt 2020-0 Univ ers NE INGREDI 9 ity of 00:00: [place] 00 Medical Branch Amlodipi Propensi Active Other [...] Active Swelling 2020-0 Univ ers ty to 420 ity of adverse 00:00: [place] reaction 00 [...] Severe U nivers Hmg-Coa ty to comments - myalgia ity of [place] adverse 00:00: [place] e reaction 00 Medical Inhibito s Branch rs ampicill ampicill Active rash Common in in [facility] lisinopr lisinopr Active Cough Common il il [facility] penicill penicill Active Memori a in in l [place] ampicill ampicill Active Memori a in in l [place] lisinopr lisinopr Active Memori a il il l [place]ong Social History Social Habit Start Date Stop Date Quantity Comments Source History of Tobacco Common [facility] - Use [facility] Exposure to Not sure University of SARS-CoV-2 (event) [facility] Alcohol intake 2022-07-10 2022-07-10 Lifetime [facility] 00:00:00 00:00:00 non-drinker Hospital (finding) History of Social 2022-07-10 2022-07-[address] function 00:00:00 00:00:00 Hospital Tobacco use and 2022-01-11 2022-01-11 Smokeless [facility] exposure 00:00:00 00:00:00 tobacco non-user Hospital Social History 2021-10-28 2021-10-28 [facility] jina 20:55:52 20:55:52 History [facility] Food 2019-12-07 2019-12-07 1 Univers ity of Worry 00:00:00 00:00:00 [place] [facility] History SDHI Food 2019-12-07 2019-12-07 1 Univers ity of Scarcity 00:00:00 00:00:00 [place] [facility] History SDHI 2019-12-07 2019-12-07 2 University o f Transport Med 00:00:00 00:00:00 [place] Medic al Branch History SDHI 2019-12-07 2019-12-07 2 University o f Transport Non-Med 00:00:00 00:00:00 [place] M edical Branch Sex [birth year] At [birth year] [facility] 00:00:00 00:00[facility]00 Hospital Smoking Status Start Date Stop Date Source Never smoked tobacco [facility] Medications Ordered Filled Start Stop Current Ordering Indication Dosage Frequency Signature Comments Components Source Medication Medication Date Date Medication? Clinician (SIG) Name Name iman Yes Apply a Met hodi n 0.5% 4-[address] (ILOTYCIN) 00:00: ribbon to Ho spita 5 mg/gram 00 the l (0.5 %) stiches/wo ophthalmic und 4 ointment times a day for 7 days then stop pravastatin 2021-09 No 20mg Q2D Take 1 Met hodi (PRAVACHOL) 0-24 10-[address] 20 MG 15:45: 00:00 mouth Hospita tablet 54 :00 every l other day. pravastatin 2021-09 No 20mg Q2D Take 1 Met hodi (PRAVACHOL) 0-24 10-[address] 20 MG 15:45: 00:00 mouth Hospita tablet 54 :00 every l other day. losartan 2021-09 No 1 TABLET Meth stan (COZAAR) 50 0-24 10-[address] MG tablet 15:45: 00:00 ONCE A DAY H ospita 41 :00 30 DAY(S) l losartan 2021-09- No 1 TABLET Meth stan (COZAAR) 50 0-24 10-[address] MG tablet 15:45: 00:00 ONCE A DAY H ospita 41 :00 30 DAY(S) l rosuvastati 2021-09 Yes 10mg QD Take 1 Meth stan n (CRESTOR) 0-24 tablet (10 st 10 mg 15:19: mg total) Hospita tablet 38 by mouth l daily. rosuvastati 2021-09 Yes 10mg QD Take 1 Meth stan n (CRESTOR) 0-24 tablet (10 st 10 mg 15:19: mg total) Hospita tablet 38 by mouth l daily. losartan Yes 1 TABLET Metho di (COZAAR) 50 6-[address] MG tablet 15:02: ONCE A DAY Ho spita 43 30 DAY(S) l citalopram 2022-0 Yes 1{tbl} 1 tablet. Methodi (CeleXA) 40 6-01 st MG tablet 15:02: Hospita 43 l pravastatin 2022-0 Yes 1{tbl} Q2D Take 1 Me thodi (PRAVACHOL) 6-[address] 20 MG 15:02: mouth Hospita tablet 43 every l other day. metoprolol 2022-0 Yes 1{tbl} 1 tablet. Methodi succinate 6- st XL 15:02: Hospita (TOPROL-XL) 43 l 50 mg 24 hr tablet citalopram 2022-0 Yes 1{tbl} 1 tablet. Methodi (CeleXA) 40 6-01 st MG tablet 15:02: Hospita 43 l metoprolol 2022-0 Yes 1{tbl} 1 tablet. Methodi succinate 6- st XL 15:02: Hospita (TOPROL-XL) 43 l 50 mg 24 hr tablet citalopram 2022-0 Yes 1{tbl} 1 tablet. Methodi (CeleXA) 40 6-01 st MG tablet 15:02: Hospita 43 l metoprolol 2022-0 Yes 1{tbl} 1 tablet. Methodi succinate 6- st XL 15:02: Hospita (TOPROL-XL) 43 l 50 mg 24 hr tablet fluticasone 2022-0 Yes QD Inhale 1 Me thodi furoate-lamar 6- inhalation st anteroL 00:00: s once Hospita (Breo 00 daily. l Ellipta) 200-25 mcg/dose blister with device powder for inhalation fluticasone 2-0 Yes QD Inhale 1 Me thodi furoate-lamar 6- inhalation st anteroL 00:00: s once Hospita (Breo 00 daily. l Ellipta) 200-25 mcg/dose blister with device powder for inhalation fluticasone 2022-0 Yes QD Inhale 1 Me thodi furoate-lamar 6-[address] anteroL 00:00: s once Hospita (Breo 00 daily. l Ellipta) 200-25 mcg/dose blister with device powder for inhalation fluticasone 2022-0 2022- No 1{puff} Q.5D Inhale 1 Methodi propion-serge 6- 06-[address] meteroL 00:00: 00:00 (two) Hospita (AirDuo 00 :00 times a l RespiClick) day. 232-14 mcg/actuati on aerosol powdr breath activated fluticasone 0 2021- No 1{puff} Q.5D Inhale 1 Methodi [...] a 75 mcg 00 l tablet levothyroxi 2021-0 Yes Method i ne 5-31 st (SYNTHROID) 00:00: Hospit a 75 mcg 00 l tablet Breo 2021-0 2021- No Methodi Ellipta 30 02-15 st 200-25 00:00: 00:00 Hospita mcg/dose 00 :00 l blister with device powder for inhalation Breo 2021-0 2021- No Methodi Ellipta 30 02-15 st 200-25 00:00: 00:00 Hospita mcg/dose 00 :00 l blister with device powder for inhalation dexlansopra 2021-0 Yes 60mg Take 60 mg Methodi zole 4-[address] (DEXILANT) 00:00: Hospita 60 mg 00 l capsule dexlansopra 2021-0 Yes 60mg Take 60 mg Methodi zole 4-[address] (DEXILANT) 00:00: Hospita 60 mg 00 l capsule DEXILANT 60 2021-0 Yes [id number] 60mg TAKE 1 Univers mg capsule 4-18 CAPSULE BY ity of 00:00: MOUTH [place] 00 DAILY. Medical STOP Branch ESOMEPRAZO LE. DEXILANT 60 2021-0 Yes [id number] 60mg TAKE 1 Univers mg capsule 4-18 CAPSULE BY ity of 00:00: MOUTH [place] 00 DAILY. Medical STOP Branch ESOMEPRAZO LE. DEXILANT 60 2021-0 Yes [id number] 60mg TAKE 1 Univers mg capsule 4-18 CAPSULE BY ity of 00:00: MOUTH [place] 00 DAILY. Medical STOP Mica ESOMEPRAZO LE. dexlansopra 2021-0 Yes 60mg Take 60 mg Methodi zole 4-[address] (DEXILANT) 00:00: Hospita 60 mg 00 l capsule spironolact 2-0 Yes 25mg QD Take 25 mg Methodi one 4-[address] (ALDACTONE) 00:00: daily. Hosp yoshi 25 MG 00 l tablet spironolact 2021-0 Yes 25mg QD Take 25 mg Methodi one 4-[address] (ALDACTONE) 00:00: daily. Hosp yoshi 25 MG 00 l tablet spironolact 2-0 Yes 25mg QD Take 25 mg Methodi one 4-[address] (ALDACTONE) 00:00: daily. Hosp yoshi 25 MG 00 l tablet DEXILANT 60 2021-0 Yes [id number] 60mg TAKE 1 Univers mg capsule 3-22 CAPSULE BY ity of 00:00: MOUTH [place] 00 DAILY. [facility] ESOMEPRAZO LE. DEXILANT 60 2021-0 2021- No [id number] 60mg TAKE 1 Univers mg capsule 3-22 04-18 CAPSULE BY it y of 00:00: 00:00 MOUTH [place] 00 :00 [facility]. [facility] furosem[facility] 2021-0 Yes 40mg QD Take 40 [...] t} MG 00:00: 00:00 00 :00 aspirin 2022-0 Yes 81mg QD Take 81 mg Meth stan (ECOTRIN) 2-[address] 81 MG 00:00: daily. Hospita enteric 00 l coated tablet aspirin 2021-0 Yes 81mg QD Take 81 mg Meth stan (ECOTRIN) 2-[address] 81 MG 00:00: daily. Hospita enteric 00 l coated tablet CLOPIDOGREL 2021-0 Yes [id number] TAKE 1 Univers 75 mg 2-25 [id number] TABLET BY ity of tablet 00:00: MOUTH [place] 00 EVERY DAY Medical Branch CLOPIDOGREL 2-0 Yes [id number] TAKE 1 Univers 75 mg 2-25 [id number] TABLET BY ity of tablet 00:00: MOUTH [place] 00 EVERY DAY Medical Branch CLOPIDOGREL 2021-0 Yes [id number] TAKE 1 Univers 75 mg 2-25 [id number] TABLET BY ity of tablet 00:00: MOUTH [place] 00 EVERY DAY Medical Branch CLOPIDOGREL 2-0 Yes [id number] TAKE 1 Univers 75 mg 2-25 [id number] TABLET BY ity of tablet 00:00: MOUTH [place] 00 EVERY DAY Medical Branch CLOPIDOGREL 2021-0 Yes [id number] TAKE 1 Univers 75 mg 2-25 [id number] TABLET BY ity of tablet 00:00: MOUTH [place] 00 EVERY DAY Medical Branch aspirin 2021-0 Yes 81mg QD Take 81 mg Meth stan (ECOTRIN) 2-[address] 81 MG 00:00: daily. Hospita enteric 00 l coated tablet DEXILANT 60 0 Yes [id number] 60mg TAKE 1 Univers mg capsule 2-24 CAPSULE BY ity of 00:00: MOUTH [place] 00 DAILY. Medical STOP Branch ESOMEPRAZO LE. DEXILANT 60 2021-0 2021- No [id number] 60mg TAKE 1 Univers mg capsule 2-24 03-22 CAPSULE BY it y of 00:00: 00:00 MOUTH [place] 00 :00 DAILY. Medical STOP Branch ESOMEPRAZO LE. traZODone 0 Yes TAKE 1 Method i (DESYREL) 2-[address] 100 MG 00:00: MOUTH Hospita tablet 00 EVERY DAY l AT BEDTIME FOR 90 DAYS traZODone 0 Yes TAKE 1 Method i (DESYREL) 2-23 [...] 18:42: PRN, 0 [place] Solution 00 Refill(s) Albuterol Yes 2.5 mg = 3 Me moria 0.83 MG/ML 2-16 mL, NEB, l Inhalant 18:42: PRN, 0 [place] Solution 00 Refill(s) Albuterol Yes 2.5 mg = 3 Me moria 0.83 MG/ML 2-16 mL, NEB, l Inhalant 18:42: PRN, 0 [place] Solution 00 Refill(s) Albuterol Yes 2.5 mg = 3 Me moria 0.83 MG/ML 2-16 mL, NEB, l Inhalant 18:42: PRN, 0 [place]ong Solution 00 Refill(s) Vitamin B6 0 Yes Daily, 0 Mem oria 2-16 Refill(s) l 16:59: [place] 00 Vitamin C 2021-0 Yes Daily, 0 Ramses emanuel 2-16 Refill(s) l 16:59: [place] 00 Vitamin B6 2021-0 Yes Daily, 0 Mem oria 2-16 Refill(s) l 16:59: [place] 00 Vitamin C 2021-0 Yes Daily, 0 Ramses emanuel 2-16 Refill(s) l 16:59: [place] 00 Vitamin B6 2021-0 Yes Daily, 0 Mem oria 2-16 Refill(s) l 16:59: [place] 00 Vitamin C 2021-0 Yes Daily, 0 Ramses emanuel 2-16 Refill(s) l 16:59: [place] 00 Vitamin B6 2021-0 Yes Daily, 0 Mem oria 2-16 Refill(s) l 16:59: [place] 00 Vitamin C 2021-0 Yes Daily, 0 Ramses emanuel 2-16 Refill(s) l 16:59: [place] 00 alcaftadine 0 Yes 1 drp, Ramses emanuel 2.5 MG/ML [...] ia 2-16 0 l 16:58: Refill(s) alcaftadine 0 Yes 1 drp, Ramses emanuel 2.5 MG/ML 2-16 Each l Ophthalmic 16:58: Affected Her farnsworth Solution 00 Eye, [Lastacaft] Daily, PRN Itching, # 3 mL, 3 Refill(s) Nexium 2021-0 Yes PO, Daily, Memor ia 2-16 0 l 16:58: Refill(s) metoprolol 0 Yes 50 mg = 1 Me moria succinate 2-16 cap, PO, l 50 mg oral 16:57: Daily, 0 Her farnsworth capsule, 00 Refill(s) extended release metoprolol 2021-0 Yes 50 mg = 1 Me moria succinate 2-16 cap, PO, l 50 mg oral 16:57: Daily, 0 Her farnsworth capsule, 00 Refill(s) extended release metoprolol 0 Yes 50 mg = 1 Me moria succinate 2-16 cap, PO, l 50 mg oral 16:57: Daily, 0 Her farnsworth capsule, 00 Refill(s) extended release metoprolol 0 Yes 50 mg = 1 Me moria succinate 2-16 cap, PO, l 50 mg oral 16:57: Daily, 0 Her farnsworth capsule, 00 Refill(s) extended release Citalopram 0 Yes 40 mg, PO, M emoria 2-16 Daily, 0 l 16:56: Refill(s) ibandronic 2021-0 Yes 150 mg = 1 M emoria acid 150 MG 2-16 tab, PO, l Oral Tablet 16:56: qMonth, 0 H erm Refill(s) Citalopram 2021-0 Yes 40 mg, PO, M emoria 2-16 Daily, 0 l 16:56: Refill(s) ibandronic 0 Yes 150 mg = 1 M emoria acid 150 MG 2-16 tab, PO, l Oral Tablet 16:56: qMonth, 0 H erm Refill(s) Citalopram 2021-0 Yes 40 mg, PO, M emoria 2-16 Daily, 0 l 16:56: Refill(s) ibandronic 0 Yes 150 mg = 1 M emoria acid 150 MG 2-16 tab, PO, l Oral Tablet 16:56: qMonth, 0 H erm Refill(s) Citalopram 2021-0 Yes 40 mg, PO, M emoria 2-16 Daily, 0 l 16:56: Refill(s) ibandronic 0 Yes 150 mg = 1 M emoria acid 150 MG 2-16 tab, PO, l Oral Tablet 16:56: qMonth, 0 H erm Refill(s) Losartan 2021-0 Yes 50 mg, PO, Mem oria 2-16 Daily, 0 l 16:55: Refill(s) Losartan 2021-0 Yes 50 mg, PO, Mem oria 2-16 Daily, 0 l 16:55: Refill(s) Losartan 2021-0 Yes 50 mg, PO, Mem oria 2-16 Daily, 0 l 16:55: Refill(s) Losartan 2021-0 Yes 50 mg, PO, Mem oria 2-16 Daily, 0 l 16:55: Refill(s) clopidogrel 2021-0 Yes 75 mg = 1 M emoria 75 MG Oral 2-11 tab, PO, l Tablet 20:38: Daily, 0 [place] [Plavix] 00 Refill(s) clopidogrel 2021-0 Yes 75 mg = 1 M emoria 75 MG Oral 2-11 tab, PO, l Tablet 20:38: Daily, 0 [place] [Plavix] 00 Refill(s) clopidogrel 2-0 Yes 75 mg = 1 M emoria 75 MG Oral 2-11 tab, PO, l Tablet 20:38: Daily, 0 [place] [Plavix] 00 Refill(s) clopidogrel 2-0 Yes 75 mg = 1 M emoria 75 MG Oral 2-11 tab, PO, l Tablet 20:38: Daily, 0 [place] [Plavix] 00 Refill(s) Aspirin 2021-0 Yes 81 mg, PO, Ramses emanuel 2-11 Daily, 0 l 20:37: Refill(s) [place] 00 Aspirin 2021-0 Yes 81 mg, PO, Ramses emanuel 2-11 Daily, 0 l 20:37: Refill(s) [place] 00 Aspirin 2021-0 Yes 81 mg, PO, Ramses emanuel 2-11 Daily, 0 l 20:37: Refill(s) [place] 00 Aspirin 2021-0 Yes 81 mg, PO, Ramses emanuel 2-11 Daily, 0 l 20:37: Refill(s) [place] 00 clopidogreL 2021-0 Yes 1{tbl} QD Take 1 [facility] (PLAVIX) 75 2-[address] [facility] daily. l clopidogreL 2021-0 Yes 1{tbl} QD Take 1 [facility] (PLAVIX) 75 2-[address] [facility] 00 daily. l clopidogreL 2021-0 Yes 1{tbl} QD Take 1 [facility] (PLAVIX) 75 2-[address] [facility] 00 daily. l hydrOXYzine hydrOXYzine 2020-09 No 1{capsu hydrOXYzin Pamoate 25 Pamoate 25 2-13 le_as_n e Pamoate MG MG 00:00: eeded} 25 MG 00 hydrOXYzine hydrOXYzine 2020-09 No 1{capsu Pamoate 25 Pamoate 25 2-13 le_as_n MG MG 00:00: eeded} 00 DEXILANT 60 2020-0 Yes [id number] 60mg TAKE 1 [facility] mg capsule 8-18 CAPSULE BY [facility] of 00:00: MOUTH [place] 00 DAILY. Medical STOP Branch ESPRITIPRAZO LE. lisinopriL 0 Yes [id number] 20mg Take 1 U nivers 20 mg 6-22 tablet by [facility] of tablet 00:00: mouth [place] 00 daily. Medical [facility] levothyroxi 2020-0 Yes [id number] 50ug Take 1 [facility] ne 50 mcg 6-22 tablet by ity o f tablet 00:00: mouth [place] 00 every Medical morning. Branch lisinopriL 2020-0 Yes [id number] 20mg Take 1 [facility] nivers 20 mg 6-22 tablet by [facility] of tablet 00:00: mouth [place] 00 daily. Medical [facility] levothyroxi 2020-0 Yes [id number] 50ug Take 1 [facility] ne 50 mcg 6-22 tablet by ity o f tablet 00:00: mouth [place] 00 every Medical morning. Branch lisinopriL 2020-0 Yes [id number] 20mg Take 1 [facility] nivers 20 mg 6-22 tablet by ity of tablet 00:00: mouth [place] 00 daily. Medical [facility] levothyroxi 2020-0 Yes [id number] 50ug Take 1 [facility] ne 50 mcg 6-22 tablet by ity o f tablet 00:00: mouth [place] 00 every Medical morning. Branch lisinopriL 2020-0 Yes [id number] 20mg Take 1 [facility] n[facility] 20 mg 6-22 tablet by [facility] of tablet 00:00: mouth [place] 00 daily. Medical [facility] levothyroxi 2020-0 Yes [id number] 50ug Take 1 [facility] ne 50 mcg 6-22 tablet by ity o f tablet 00:00: mouth [place] 00 every Medical morning. Branch lisinopriL 2020-0 Yes [id number] 20mg Take 1 [facility] nivers 20 mg 6-22 tablet by [facility]y of tablet 00:00: mouth [place] 00 daily. Medical [facility] levothyroxi 2020-0 Yes [id number] 50ug Take 1 [facility] ne 50 mcg 6-22 tablet by ity o f tablet 00:00: mouth [place] 00 every Medical morning. Branch lisinopriL 2020-0 Yes [id number] 20mg Take 1 [facility] n[facility] 20 mg 6-22 tablet by [facility] of tablet 00:00: mouth [place] 00 daily. Medical [facility] levothyroxi 2020-0 Yes [id number] 50ug Take 1 [facility] ne 50 mcg 6-22 tablet by ity o f tablet 00:00: mouth [place] 00 every Medical morning. Branch lisinopriL 2020-0 Yes [id number] 20mg Take 1 [facility] 20 mg 6-22 tablet by [facility] of tablet 00:00: mouth [place] 00 daily. Medical [facility] levothyroxi 2020-0 Yes [id number] 50ug Take 1 [facility] ne 50 mcg 6-22 tablet by ity o f tablet 00:00: mouth [place] 00 every Medical morning. Branch lisinopriL 2020-0 Yes [id number] 20mg Take 1 [facility] n[facility] 20 mg 6-22 tablet by [facility] of tablet 00:00: mouth [place] 00 daily. Medical Branch levothyroxi 2020-0 Yes [id number] 50ug Take 1 [facility] ne 50 mcg 6-22 tablet by ity o f tablet 00:00: mouth [place] 00 every Medical morning. Branch lisinopriL 2020-0 Yes [id number] 20mg Take 1 [facility] 20 mg 6-22 tablet by [facility] of tablet 00:00: mouth [place] 00 daily. Medical Branch levothyroxi 2020-0 Yes [id number] 50ug Take 1 [facility] ne 50 mcg 6-22 tablet by ity o f tablet 00:00: mouth [place] 00 every Medical morning. Branch lisinopriL 2020-0 Yes [id number] 20mg Take 1 [facility] n[facility] 20 mg 6-22 tablet by it[facility] of tablet 00:00: mouth [place] 00 daily. Medical [facility] levothyroxi 2020-0 Yes [id number] 50ug Take 1 [facility] ne 50 mcg 6-22 tablet by ity o f tablet 00:00: mouth [place] 00 every Medical morning. Branch lisinopriL 2020-0 Yes [id number] 20mg Take 1 [facility] 20 mg 6-22 tablet by [facility] of tablet 00:00: mouth [place] 00 daily. Medical Branch levothyroxi 2020-0 Yes [id number] 50ug Take 1 [facility] ne 50 mcg 6-22 tablet by ity o f tablet 00:00: mouth [place] 00 every Medical morning. Branch LEVOTHYROXI 2020-0 Yes [id number] TAKE 1 [facility] NE 50 mcg 6-21 TABLET BY ity o f tablet 00:00: MOUTH [place] 00 EVERY DAY Medical IN THE [place] MORNING LEVOTHYROXI 2020- No [id number] TAKE 1 [facility] NE 50 mcg 6-21 06-22 TABLET BY ity of tablet 00:00: 00:00 MOUTH [place] 00 :00 EVERY DAY Medical IN THE [place] MORNING LEVOTHYROXI 2020- No [id number] TAKE 1 [facility] NE 50 mcg 6-21 06-22 TABLET BY ity of tablet 00:00: 00:00 MOUTH [place] 00 :00 EVERY DAY Medical IN THE [place] MORNING TRIAMTERENE Yes [id number] TAKE 1 [facility] -HYDROCHLOR 6-08 TABLET BY ity of OTHIAZID 00:00: MOUTH [place] 37.5-25 mg 00 EVERY DAY Medi kacey tablet Branch TRIAMTERENE 0 Yes [id number] TAKE 1 [facility] -HYDROCHLOR 6-08 TABLET BY ity of OTHIAZID 00:00: MOUTH [place] 37.5-25 mg 00 EVERY DAY Medi kacey tablet Branch TRIAMTERENE 0 Yes [id number] TAKE 1 [facility] -HYDROCHLOR 6-08 TABLET BY ity of OTHIAZID 00:00: MOUTH [place] 37.5-25 mg 00 EVERY DAY Medi kacey tablet Branch TRIAMTERENE 0 Yes [id number] TAKE 1 [facility] -HYDROCHLOR 6-08 TABLET BY ity of OTHIAZID 00:00: MOUTH [place] 37.5-25 mg 00 EVERY DAY Medi kaecy tablet Branch TRIAMTERENE 0 Yes [id number] TAKE 1 [facility] -HYDROCHLOR 6-08 TABLET BY ity of OTHIAZID 00:00: MOUTH [place] 37.5-25 mg 00 EVERY DAY Medi kacey tablet Branch TRIAMTERENE 2020-0 Yes [id number] TAKE 1 [facility] -HYDROCHLOR 6-08 TABLET BY ity of OTHIAZID 00:00: MOUTH [place] 37.5-25 mg 00 EVERY DAY Medi kacey tablet Branch TRIAMTERENE 2020-0 Yes [id number] TAKE 1 [facility] -HYDROCHLOR 6-08 TABLET BY ity of OTHIAZID 00:00: MOUTH [place] 37.5-25 mg 00 EVERY DAY Medi kacey tablet Branch TRIAMTERENE 2020-0 Yes [id number] TAKE 1 [facility] -HYDROCHLOR 6-08 TABLET BY ity of OTHIAZID 00:00: MOUTH [place] 37.5-25 mg 00 EVERY DAY Medi kacey tablet Branch TRIAMTERENE 2020-0 Yes [id number] TAKE 1 [facility] -HYDROCHLOR 6-08 TABLET BY ity of OTHIAZID 00:00: MOUTH [place] 37.5-25 mg 00 EVERY DAY Medi kacey tablet Branch TRIAMTERENE 2020-0 Yes [id number] TAKE 1 [facility] -HYDROCHLOR 6-08 TABLET BY ity of OTHIAZID 00:00: MOUTH [place] 37.5-25 mg 00 EVERY DAY Medi kacey tablet Branch TRIAMTERENE 2020-0 Yes [id number] TAKE 1 [facility] -HYDROCHLOR 6-08 TABLET BY ity of OTHIAZID 00:00: MOUTH [place] 37.5-25 mg 00 EVERY DAY Medi kacey tablet Branch TRIAMTERENE 2020-0 Yes [id number] TAKE 1 [facility] -HYDROCHLOR 6-08 TABLET BY ity of OTHIAZID 00:00: MOUTH [place] 37.5-25 mg 00 EVERY DAY Medi kacey tablet Branch TRIAMTERENE 2020-0 Yes [id number] TAKE 1 [facility] -HYDROCHLOR 6-08 TABLET BY ity of OTHIAZID 00:00: MOUTH [place] 37.5-25 mg 00 EVERY DAY Medi kacey tablet Branch TRIAMTERENE 2020-0 Yes [id number] TAKE 1 [facility] -HYDROCHLOR 6-08 TABLET BY ity of OTHIAZID 00:00: MOUTH [place] 37.5-25 mg 00 EVERY DAY Medi kacey tablet Branch TRIAMTERENE 2020-0 Yes [id number] TAKE 1 [facility] -HYDROCHLOR 6-08 TABLET BY ity of OTHIAZID 00:00: MOUTH [place] 37.5-25 mg 00 EVERY DAY Medi kacey tablet Branch Acetaminoph 2020-0 No 1,000 mg, M emoria en 02-21 Route: PO, l 19:59: Drug form: [place] 00 TAB, ONCE, Dosing Weight 75.455, kg, [...] 2020-0 No 0.5 mg, Mem oria ne 6- Route: l 19:59: IVP, [place] 00 Q5Min, Dosing Weight 75.455, kg, PRN Pain Score 7-10, Start date: 02/21/21 14:59:00 CDT, Duration: 4 doses or times, Stop date: Limited # of times Flumazenil 2020-0 No 0.2 mg, Ramses emanuel 02-21 Route: l 19:59: IVP, PRN, [place] 00 Dosing Weight 75.455, kg, PRN Benzodiaze pine Reversal, Initial dose, Start date: 02/21/21 14:59:00 CDT, Duration: 30 day, Stop date: 03/23/21 14:58:00 CDT Naloxone 2020-0 No 0.4 mg, Memori a 02-21 Route: l 19:59: IVP, [place] 00 Q2MIN, Dosing Weight 75.455, kg, PRN Narcotic Reversal, Start date: 02/21/21 14:59:00 CDT, Duration: 8 doses or times, Stop date: Limited # of times Meperidine 2020-0 No 12.5 mg, Mem oria 6-07 Route: l 19:59: IVP, [place] 00 Q30Min, Dosing Weight 75.455, kg, PRN Other -See Comment, For shivering, Start date: 02/21/21 14:59:00 CDT, Duration: 2 doses or times, Stop date: Limited # of times Ondansetron 2020-0 No 4 mg, Memor ia 6- Route: l 19:59: IVP, ONCE, [place] 00 Dosing Weight 75.455, kg, PRN Nausea & Vomiting, Start date: 02/21/21 14:59:00 CDT Acetaminoph 2020-0 No 1,000 mg, M emoria en 02-21 Route: PO, l 19:59: Drug form: [place] 00 TAB, ONCE, Dosing Weight 75.455, kg, [...] 14:58:00 CDT Fentanyl 2020-0 No 25 [facility] 02-21 microgram, l 19:59: Route: [place] 00 IVP, Q5Min, Dosing Weight 75.455, kg, PRN Pain Score 4-6, Priority: Routine, Start date: 02/21/21 14:59:00 CDT, Duration: 4 doses or times, Stop date: Limited # of times Hydromorpho 2020-0 No 0.5 mg, Mem oria ne 02-21 Route: l 19:59: IVP, [place] 00 Q5Min, Dosing Weight 75.455, kg, PRN Pain Score 7-10, Start date: 02/21/21 14:59:00 CDT, Duration: 4 doses or times, Stop date: Limited # of times Flumazenil 2020-0 No 0.2 mg, Ramses emanuel 02-21 Route: l 19:59: IVP, PRN, [place] 00 Dosing Weight 75.455, kg, PRN Benzodiaze pine Reversal, Initial dose, Start date: 02/21/21 14:59:00 CDT, Duration: 30 day, Stop date: 03/23/21 14:58:00 CDT Naloxone 2020-0 No 0.4 mg, Memori a 02-21 Route: l 19:59: IVP, [place] 00 Q2MIN, Dosing Weight 75.455, kg, PRN Narcotic Reversal, Start date: 02/21/21 14:59:00 CDT, Duration: 8 doses or times, Stop date: Limited # of times Meperidine 2020-0 No 12.5 mg, Mem oria 02-21 Route: l 19:59: IVP, [place] 00 Q30Min, Dosing Weight 75.455, kg, PRN Other -See Comment, For shivering, Start date: 02/21/21 14:59:00 CDT, Duration: 2 doses or times, Stop date: Limited # of times Ondansetron 0 No 4 mg, Memor ia 02-21 Route: l 19:59: IVP, ONCE, [place] 00 Dosing Weight 75.455, kg, PRN Nausea & Vomiting, Start date: 02/21/21 14:59:00 CDT Acetaminoph 2020-0 No 1,000 mg, M emoria en 02-21 Route: PO, l 19:59: Drug form: [place] 00 TAB, ONCE, Dosing Weight 75.455, kg, [...] 14:58:00 CDT Fentanyl 2020-0 No 25 Mem[facility] 6- microgram, l 19:59: Route: [place] 00 IVP, Q5Min, Dosing Weight 75.455, kg, PRN Pain Score 4-6, Priority: Routine, Start date: 02/21/21 14:59:00 CDT, Duration: 4 doses or times, Stop date: Limited # of times Hydromorpho 2020-0 No 0.5 mg, Mem oria ne 02-21 Route: l 19:59: IVP, [place] 00 Q5Min, Dosing Weight 75.455, kg, PRN Pain Score 7-10, Start date: 02/21/21 14:59:00 CDT, Duration: 4 doses or times, Stop date: Limited # of times Flumazenil 2021-0 No 0.2 mg, Ramses emanuel 02-21 Route: l 19:59: IVP, PRN, [place] 00 Dosing Weight 75.455, kg, PRN Benzodiaze pine Reversal, Initial dose, Start date: 02/21/21 14:59:00 CDT, Duration: 30 day, Stop date: 03/23/21 14:58:00 CDT Naloxone 1-0 No 0.4 mg, Memori a 02-21 Route: l 19:59: IVP, [place] 00 Q2MIN, Dosing Weight 75.455, kg, PRN Narcotic Reversal, Start date: 02/21/21 14:59:00 CDT, Duration: 8 doses or times, Stop date: Limited # of times Meperidine 2020-0 No 12.5 mg, Mem oria 02-21 Route: l 19:59: IVP, [place] 00 Q30Min, Dosing Weight 75.455, kg, PRN Other -See Comment, For shivering, Start date: 02/21/21 14:59:00 CDT, Duration: 2 doses or times, Stop date: Limited # of times Ondansetron 1-0 No 4 mg, Memor ia 02-21 Route: l 19:59: IVP, ONCE, [place] 00 Dosing Weight 75.455, kg, PRN Nausea & Vomiting, Start date: 02/21/21 14:59:00 CDT Acetaminoph 1-0 No 1,000 mg, M emoria en 02-21 Route: PO, l 19:59: Drug form: [place] 00 TAB, ONCE, Dosing Weight 75.455, kg, PRN Pain Score 1-3, Start date: 02/21/21 14:59:00 CDT Oxycodone 1-0 No 5 mg, Memoria Hydrochlori 02-21 Route: PO, l de 5 MG 19:59: Drug form: Herm josefina Oral Tablet 00 TAB, Q4H, Dosing Weight 75.455, kg, PRN Pain Score 4-6, Start date: 02/21/21 14:59:00 CDT, Duration: 30 day, Stop date: 03/23/21 14:58:00 CDT Fentanyl 1-0 No 25 [facility] 6-07 microgram, l 19:59: Route: [place] 00 IVP, Q5Min, Dosing Weight 75.455, kg, PRN Pain Score 4-6, Priority: Routine, Start date: 02/21/21 14:59:00 CDT, Duration: 4 doses or times, Stop date: Limited # of times Hydromorpho 2020-0 No 0.5 mg, Mem oria ne 02-21 Route: l 19:59: IVP, [place] 00 Q5Min, Dosing Weight 75.455, kg, PRN [...] Memori a 02-21 Route: l 19:59: IVP, [place] 00 Q2MIN, Dosing Weight 75.455, kg, PRN Narcotic Reversal, Start date: 02/21/21 14:59:00 CDT, Duration: 8 doses or times, Stop date: Limited # of times Meperidine 2020-0 No 12.5 mg, Mem oria 02-21 Route: l 19:59: IVP, [place] 00 Q30Min, Dosing Weight 75.455, kg, PRN [...] ONCE, Stop date: 02/21/21 14:16:00 CDT neostigmine 2020-0 No Route: IV, Memoria (ANES) 02-21 Drug form: l 19:16: INJ, ONCE, Stop date: 02/21/21 14:16:00 CDT glycopyrrol 2020-0 No Route: IV, Memoria ate (ANES) 02-21 Drug form: l 19:16: INJ, ONCE, Stop date: 02/21/21 14:16:00 CDT neostigmine 2020-0 No Route: IV, [facility] (ANES) 02-21 Drug form: l 19:16: INJ, ONCE, Stop date: 02/21/21 14:16:00 CDT Acetaminoph 0 Yes 1 - 2 tab, Memoria en 300 MG / 6-07 PO, Q6H, l Codeine 19:06: PRN Pain, Monse nn Phosphate 00 X 4 day, # 30 MG Oral 32 tab, 0 Tablet Refill(s) [Tylenol with Codeine #3] Acetaminoph 0 Yes 1 - 2 tab, [facility]oria en 300 MG / -07 PO, Q6H, l Codeine 19:06: PRN Pain, [place] nn Phosphate 00 X 4 day, # 30 MG Oral 32 tab, 0 Tablet Refill(s) [Tylenol with Codeine #3] Acetaminoph 2020-0 Yes 1 - 2 tab, [facility] en 300 MG / 6-07 PO, Q6H, l Codeine 19:06: PRN Pain, [place] nn Phosphate 00 X 4 day, # 30 MG Oral 32 tab, 0 Tablet Refill(s) [Tylenol with Codeine #3] Acetaminoph 2020-0 Yes 1 - 2 tab, [facility]oria en 300 MG / 6-07 PO, Q6H, l Codeine 19:06: PRN Pain, M[place] nn Phosphate 00 X 4 day, # 30 MG Oral 32 tab, 0 Tablet Refill(s) [Tylenol with Codeine #3] ondansetron 2020-0 No Route: IV, [facility]oria (ANES) [...] ONCE, Stop date: 02/21/21 13:32:00 CDT lidocaine 2020-0 No Route: IV, Me moria (ANES) 02-21 Drug form: l 18:27: INJ, ONCE, Stop date: 02/21/21 13:27:00 CDT fentaNYL 2020-0 No Route: IV, Mem oria (ANES) 02-21 Drug form: l 18:27: INJ, ONCE, Stop date: 02/21/21 13:27:00 CDT propofol 2020-0 No Route: IV, Mem oria (ANES) 02-21 Drug form: l 18:27: INJ, ONCE, Stop date: 02/21/21 13:27:00 CDT rocuronium 2020-0 No Route: IV, M emoria (ANES) 02-21 Drug form: l 18:27: INJ, ONCE, Stop date: 02/21/21 13:27:00 CDT ceFAZolin 2020-0 No Route: IV, Me moria (ANES) 02-21 Drug form: l 18:27: INJ, ONCE, Stop date: 02/21/21 13:27:00 CDT lidocaine 2020-0 No Route: IV, Me moria (ANES) 02-21 Drug form: l 18:27: INJ, ONCE, Stop date: 02/21/21 13:27:00 CDT fentaNYL 2020-0 No Route: IV, Mem oria (ANES) 02-21 Drug form: l 18:27: INJ, ONCE, Stop date: 02/21/21 13:27:00 CDT propofol 2020-0 No Route: IV, Mem oria (ANES) 02-21 Drug form: l 18:27: INJ, ONCE, Stop date: 02/21/21 13:27:00 CDT rocuronium 2020-0 No Route: IV, M emoria (ANES) 6- Drug form: l 18:27: INJ, ONCE, Stop date: 02/21/21 13:27:00 CDT ceFAZolin 2020-0 No Route: IV, moria (ANES) 6- Drug form: l 18:27: INJ, ONCE, Stop date: 02/21/21 13:27:00 CDT lidocaine 2020-0 No Route: IV, moria (ANES) 6- Drug form: l 18:27: INJ, ONCE, Stop date: 02/21/21 13:27:00 CDT fentaNYL 2020-0 No Route: IV, Mem oria (ANES) - Drug form: l 18:27: INJ, ONCE, Stop date: 02/21/21 13:27:00 CDT propofol 2020-0 No Route: IV, Mem oria (ANES) - Drug form: l 18:27: INJ, ONCE, Stop date: 02/21/21 13:27:00 CDT rocuronium 2020-0 No Route: IV, Lashae emoria (ANES) - Drug form: l 18:27: INJ, ONCE, Stop date: 02/21/21 13:27:00 CDT ceFAZolin 2020-0 No Route: IV, moria (ANES) 6- Drug form: l 18:27: INJ, ONCE, Stop date: 02/21/21 13:27:00 CDT lidocaine 2020-0 No Route: IV, moria (ANES) 6- Drug form: l 18:27: INJ, ONCE, Stop date: 02/21/21 13:27:00 CDT fentaNYL 2020-0 No Route: IV, Mem oria (ANES) 6- Drug form: l 18:27: INJ, ONCE, Stop date: 02/21/21 13:27:00 CDT propofol 2020-0 No Route: IV, Mem oria (ANES) 6- Drug form: l 18:27: INJ, ONCE, Stop date: 02/21/21 13:27:00 CDT rocuronium No Route: IV, Lashae emoria (ANES) 02-21 Drug form: l 18:27: INJ, ONCE, Stop date: 02/21/21 13:27:00 CDT ceFAZolin No Route: IV, moria (ANES) 02-21 Drug form: l 18:27: INJ, ONCE, [place] 00 Stop date: 02/21/21 13:27:00 CDT Lactated [...] 72 HR No 1 patch, Memoria Scopolamine 02-21 Route: l 0.0139 16:00: TOP, Drug Beny n MG/HR 00 Form: Transdermal ERFILM, Patch Dosing Weight 75.455, kg, PRE OP, Start date: 02/21/21 11:00:00 CDT, Duration: 30 day, Stop date: 03/23/21 10:59:00 CDT 72 HR 2021-0 No 1 patch, [facility] Scopolamine 6-07 Route: [...] sodium, 6-07 SUB-Q, l porcine 15:44: ONCE, [place] 2500 UNT/ML 00 Dosing Injectable Weight Solution 75.455, kg, Start date: 02/21/21 10:44:00 CDT, Stop date: 02/21/21 10:44:00 CDT heparin No Route: Memoria sodium, 6-07 SUB-Q, l porcine 15:44: ONCE, [place] 2500 UNT/ML 00 Dosing Injectable Weight Solution 75.455, kg, Start date: 02/21/21 10:44:00 CDT, Stop date: 02/21/21 10:44:00 CDT heparin No Route: [facility] sodium, 6-07 SUB-Q, l porcine 15:44: ONCE, [place] 2500 UNT/ML 00 Dosing Injectable Weight Solution 75.455, kg, Start date: 02/21/21 10:44:00 CDT, Stop date: 02/21/21 10:44:00 CDT heparin 2021-0 No Route: [facility] sodium, 6-07 SUB-Q, l porcine 15:44: ONCE, [place] 2500 UNT/ML 00 Dosing Injectable Weight Solution 75.455, kg, Start date: 02/21/21 10:44:00 CDT, Stop date: 02/21/21 10:44:00 CDT Calcium 2020-0 No 1,000 mL, Memor ia Chloride 6-07 Rate: 75 l 0.0014 15:23: ml/hr, [facility] MEQ/ML / 00 Infuse Potassium over: 13.3 Chloride hr, Route: 0.004 IV, Dosing MEQ/ML / Weight Sodium 75.455 kg, Chloride Total 0.103 Volume: MEQ/ML / 1,000, Sodium Start Lactate date: 0.028 02/21/21 MEQ/ML 10:23:00 Injectable CDT, Solution Duration: 1 day, Stop date: 02/22/21 10:22:00 CDT, BSA: 1.8 m2, 0 Calcium 2020-0 No 1,000 mL, Memor ia Chloride 6-07 Rate: 75 l 0.0014 15:23: ml/hr, [place] MEQ/ML / 00 Infuse Potassium over: 13.3 Chloride hr, Route: 0.004 IV, Dosing MEQ/ML / Weight Sodium 75.455 kg, Chloride Total 0.103 Volume: MEQ/ML / 1,000, Sodium Start Lactate date: 0.028 02/21/21 MEQ/ML 10:23:00 Injectable CDT, Solution Duration: 1 day, Stop date: 02/22/21 10:22:00 CDT, BSA: 1.8 m2, 0 Calcium 2020-0 No 1,000 mL, Memor ia Chloride 6-07 Rate: 75 l 0.0014 15:23: ml/hr, [place] MEQ/ML / 00 Infuse Potassium over: 13.3 Chloride hr, Route: 0.004 IV, Dosing MEQ/ML / Weight Sodium 75.455 kg, Chloride Total 0.103 Volume: MEQ/ML / 1,000, Sodium Start Lactate date: 0.028 02/21/21 MEQ/ML 10:23:00 Injectable CDT, Solution Duration: 1 day, Stop date: 02/22/21 10:22:00 CDT, BSA: 1.8 m2, 0 Calcium 2020-0 No 1,000 mL, Memor ia Chloride 6-07 Rate: 75 l 0.0014 15:23: ml/hr, [place] MEQ/ML / 00 Infuse Potassium over: 13.3 [...] ity of 300-30 mg 00:00: [place] tablet [facility] acetaminoph 1-0 Yes Univer s en-codeine 6-07 ity of 300-30 mg 00:00: [place] tablet [facility] acetaminoph 1-0 Yes Univer s en-codeine 6-07 ity of 300-30 mg 00:00: [place] tablet 00 Medical [facility] acetaminoph 1-0 Yes Univer s en-codeine 6-07 ity of 300-30 mg 00:00: [place] tablet [facility] acetaminoph 1-0 Yes Univer s en-codeine 6-07 ity of 300-30 mg 00:00: [place] tablet [facility] acetaminoph 1-0 Yes Univer s en-codeine 6-07 ity of 300-30 mg 00:00: [place] tablet Medical [facility] acetaminoph 1-0 Yes Univer s en-codeine 6-07 ity of 300-30 mg 00:00: [place] tablet 00 Medical [facility] acetaminoph 1-0 Yes Univer s en-codeine 6-07 ity of 300-30 mg 00:00: [place] tablet 00 Medical [facility] acetaminoph 1-0 Yes Univer s en-codeine 6-07 ity of 300-30 mg 00:00: [place] tablet [facility] acetaminoph 2021-0 Yes Univer s en-codeine 6-07 ity of 300-30 mg 00:00: [address] Trazodone 0 Yes 100 mg, Memor ia 6-03 PO, l 19:16: Bedtime, 0 [place] Refill(s) Trazodone 2020-0 Yes 100 mg, Memor ia 6-03 PO, l 19:16: Bedtime, 0 [place] Refill(s) Trazodone 2020-0 Yes 100 mg, Memor ia 6-03 PO, l 19:16: Bedtime, 0 [place] Refill(s) Trazodone 2020-0 Yes 100 mg, Memor ia 6-03 PO, l 19:16: Bedtime, 0 [place] Refill(s) Hydrochloro 0 Yes 1 tab, PO, Memoria thiazide 25 6-03 Daily, l MG / 19:15: NEEDED FOR [place] Triamterene 00 LEG 37.5 MG SWELING, 0 Oral Tablet Refill(s) Hydrochloro 0 Yes 1 tab, PO, [facility] thiazide 25 6-03 Daily, l MG / 19:15: NEEDED FOR [place] Triamterene 00 LEG 37.5 MG SWELING, 0 Oral Tablet Refill(s) Hydrochloro 0 Yes 1 tab, PO, [facility] thiazide 25 6-03 Daily, l MG / 19:15: NEEDED FOR [place] Triamterene 00 LEG 37.5 MG SWELING, 0 Oral Tablet Refill(s) Hydrochloro 0 Yes 1 tab, PO, [facility] thiazide 25 6-03 Daily, l MG / 19:15: NEEDED FOR [place] Triamterene 00 LEG 37.5 MG SWELING, 0 Oral Tablet Refill(s) clopidogrel 0 Yes 75 mg, PO, Memoria 6-03 0 l 19:13: Refill(s) [place] clopidogrel 2020-0 Yes 75 mg, PO, Memoria 6-03 0 l 19:13: Refill(s) [place] 00 clopidogrel 2020-0 Yes 75 mg, PO, [facility] 6-03 0 l 19:13: Refill(s) [place] clopidogrel 2020-0 Yes 75 mg, PO, [facility] 6-03 0 l 19:13: Refill(s) [place] 00 Dexilant Yes 60 mg, PO, Mem oria 6-03 Daily, 0 l 19:12: Refill(s) Dexilant Yes 60 mg, PO, Mem oria 6-03 Daily, 0 l 19:12: Refill(s) Dexilant Yes 60 mg, PO, Mem oria 6-03 Daily, 0 l 19:12: Refill(s) Dexilant Yes 60 mg, PO, Mem oria 6-03 Daily, 0 l 19:12: Refill(s) Thyroxine Yes 50 [facility] 6-03 microgram, l 19:11: PO, Daily, 0 Refill(s) Lisinopril Yes 20 mg, PO, M emoria 6-03 Daily, 0 l 19:11: Refill(s) Thyroxine Yes 50 [facility] 6-03 microgram, l 19:11: PO, Daily, 0 Refill(s) Lisinopril Yes 20 mg, PO, M emoria 6-03 Daily, 0 l 19:11: Refill(s) Thyroxine Yes 50 [facility] 6-03 microgram, l 19:11: PO, Daily, 0 Refill(s) Lisinopril Yes 20 mg, PO, M emoria 6-03 Daily, 0 l 19:11: Refill(s) Thyroxine Yes 50 [facility] 6-03 microgram, l 19:11: PO, Daily, 0 Refill(s) Lisinopril Yes 20 mg, PO, M emoria 6-03 Daily, 0 l 19:11: Refill(s) Metformin Yes 500 mg, Mem[facility] ia 6-03 PO, BID, 0 l 19:10: Refill(s) Pravastatin Yes 10 mg, PO, [facility] 6-03 Bedtime, # l 19:10: 30 tab, 0 Refill(s) Metformin Yes 500 mg, [facility] 6-03 PO, BID, 0 l 19:10: Refill(s) [place] Pravastatin 1-0 Yes 10 mg, PO, [facility] 6-03 Bedtime, # l 19:10: 30 tab, 0 [place] 00 Refill(s) Metformin 1-0 Yes 500 mg, [facility] 6-03 PO, BID, 0 l 19:10: Refill(s) [place] 00 Pravastatin 1-0 Yes 10 mg, PO, [facility] 6-03 Bedtime, # l 19:10: 30 tab, 0 [place] 00 Refill(s) Metformin 1-0 Yes 500 mg, [facility] 6-03 PO, BID, 0 l 19:10: Refill(s) [place] 00 Pravastatin 1-0 Yes 10 mg, PO, [facility] 6-03 Bedtime, # l 19:10: 30 tab, 0 [place] 00 Refill(s) hydrOXYzine 2020-0 Yes [id number] 25mg Take 1 [facility] 25 mg 5-24 tablet by [facility] of tablet 00:00: mouth [place] 00 every 6 Medical (six) Branch hours as needed for Itching. triamcinolo 2020-0 Yes [id number] Apply to [facility] ne 5-24 area(s) 2 ity of acetonide 00:00: (two) [place] 0.1 % cream 00 times Medical daily. Branch hydrOXYzine 2020-0 Yes [id number] 25mg Take 1 [facility] 25 mg 5-24 tablet by ity of tablet 00:00: mouth [place] 00 every 6 Medical (six) Branch hours as needed for Itching. triamcinolo 2021-0 Yes [id number] Apply to [facility] ne 5-24 area(s) 2 ity of acetonide 00:00: (two) [place] 0.1 % cream 00 times Medical daily. Branch hydrOXYzine 2020-0 Yes [id number] 25mg Take 1 [facility] 25 mg 5-24 tablet by ity of tablet 00:00: mouth [place] 00 every 6 Medical (six) Branch hours as needed for Itching. triamcinolo 2021-0 Yes [id number] Apply to [facility] ne 5-24 area(s) 2 ity of acetonide 00:00: (two) [place] 0.1 % cream 00 times Medical daily. Branch hydrOXYzine 2021-0 Yes [id number] 25mg Take 1 [facility] 25 mg 5-24 tablet by ity of tablet 00:00: mouth [place] 00 every 6 Medical (six) Branch hours as needed for Itching. triamcinolo 2021-0 Yes [id number] Apply to [facility] ne 5-24 area(s) 2 ity of acetonide 00:00: (two) [place] 0.1 % cream 00 times Medical daily. Branch hydrOXYzine 2021-0 Yes [id number] 25mg Take 1 [facility] 25 mg 5-24 tablet by ity of tablet 00:00: mouth [place] 00 every 6 Medical (six) Branch hours as needed for Itching. triamcinolo 2021-0 Yes [id number] Apply to [facility] ne 5-24 area(s) 2 ity of acetonide 00:00: (two) [place] 0.1 % cream 00 times Medical daily. Branch hydrOXYzine 2021-0 Yes [id number] 25mg Take 1 [facility] 25 mg 5-24 tablet by ity of tablet 00:00: mouth [place] 00 every 6 Medical (six) Branch hours as needed for Itching. triamcinolo 2021-0 Yes [id number] Apply to [facility] ne 5-24 area(s) 2 ity of acetonide 00:00: (two) [place] 0.1 % cream 00 times Medical daily. Branch hydrOXYzine 2021-0 Yes [id number] 25mg Take 1 [facility] 25 mg 5-24 tablet by ity of tablet 00:00: mouth [place] 00 every 6 Medical (six) Branch hours as needed for Itching. triamcinolo 2021-0 Yes [id number] Apply to [facility] ne 5-24 area(s) 2 ity of acetonide 00:00: (two) [place] 0.1 % cream 00 times Medical daily. Branch hydrOXYzine 2021-0 Yes [id number] 25mg Take 1 [facility] 25 mg 5-24 tablet by ity of tablet 00:00: mouth [place] 00 every 6 Medical (six) Branch hours as needed for Itching. triamcinolo 2021-0 Yes [id number] Apply to [facility] ne 5-24 area(s) 2 ity of acetonide 00:00: (two) [place] 0.1 % cream 00 times Medical daily. Branch hydrOXYzine 2021-0 Yes [id number] 25mg Take 1 [facility] 25 mg 5-24 tablet by ity of tablet 00:00: mouth [place] 00 every 6 Medical (six) Branch hours as needed for Itching. triamcinolo 2021-0 Yes [id number] Apply to [facility] ne 5-24 area(s) 2 ity of acetonide 00:00: (two) [place] 0.1 % cream 00 times Medical daily. Branch hydrOXYzine 2021-0 Yes [id number] 25mg Take 1 [facility] 25 mg 5-24 tablet by ity of tablet 00:00: mouth [place] 00 every 6 Medical (six) Branch hours as needed for Itching. triamcinolo 2021-0 Yes [id number] Apply to [facility] ne 5-24 area(s) 2 ity of acetonide 00:00: (two) [place] 0.1 % cream 00 times Medical daily. Branch hydrOXYzine 2021-0 Yes [id number] 25mg Take 1 [facility] 25 mg 5-24 tablet by ity of tablet 00:00: mouth [place] 00 every 6 Medical (six) Branch hours as needed for Itching. triamcinolo 2021-0 Yes [id number] Apply to [facility] ne 5-24 area(s) 2 ity of acetonide 00:00: (two) [place] 0.1 % cream 00 times Medical daily. Branch hydrOXYzine 2021-0 Yes [id number] 25mg Take 1 [facility] 25 mg 5-24 tablet by ity of tablet 00:00: mouth [place] 00 every 6 Medical (six) Branch hours as needed for Itching. triamcinolo 2021-0 Yes [id number] Apply to [facility] ne 5-24 area(s) 2 ity of acetonide 00:00: (two) [place] 0.1 % cream 00 times Medical daily. Branch hydrOXYzine 2021-0 Yes [id number] 25mg Take 1 [facility] 25 mg 5-24 tablet by ity of tablet 00:00: mouth [place] 00 every 6 Medical (six) Branch hours as needed for Itching. triamcinolo 2021-0 Yes [id number] Apply to [facility] ne 5-24 area(s) 2 ity of acetonide 00:00: (two) [place] 0.1 % cream 00 times Medical daily. Branch hydrOXYzine 2021-0 Yes [id number] 25mg Take 1 [facility] 25 mg 5-24 tablet by ity of tablet 00:00: mouth [place] 00 every 6 Medical (six) Branch hours as needed for Itching. triamcinolo 2021-0 Yes [id number] Apply to [facility] ne 5-24 area(s) 2 ity of acetonide 00:00: (two) [place] 0.1 % cream 00 times Medical daily. Branch hydrOXYzine 1-0 Yes [id number] 25mg Take 1 [facility] 25 mg 5-24 tablet by ity of tablet 00:00: mouth [place] 00 every 6 Medical (six) Branch hours as needed for Itching. triamcinolo 2021-0 Yes [id number] Apply to [facility] ne 5-24 area(s) 2 ity of acetonide 00:00: (two) [place] 0.1 % cream 00 times Medical daily. Branch hydrOXYzine 1-0 Yes [id number] 25mg Take 1 [facility] 25 mg 5-24 tablet by ity of tablet 00:00: mouth [place] 00 every 6 Medical (six) Branch hours as needed for Itching. triamcinolo 1-0 Yes [id number] Apply to [facility] ne 5-24 area(s) 2 ity of acetonide 00:00: (two) [place] 0.1 % cream 00 times Medical daily. Branch hydrOXYzine 2020-0 Yes [id number] 25mg Take 1 [facility] 25 mg 5-24 tablet by ity of tablet 00:00: mouth [place] 00 every 6 Medical (six) Branch hours as needed for Itching. triamcinolo 1-0 Yes [id number] Apply to [facility] ne 5-24 area(s) 2 ity of acetonide 00:00: (two) [place] 0.1 % cream 00 times Medical daily. Branch hydrOXYzine 1-0 Yes [id number] 25mg Take 1 [facility] 25 mg 5-24 tablet by ity of tablet 00:00: mouth [place] 00 every 6 Medical (six) Branch hours as needed for Itching. triamcinolo 2021-0 Yes [id number] Apply to [facility] ne 5-24 area(s) 2 ity of acetonide 00:00: (two) [place] 0.1 % cream 00 times Medical daily. Branch Magnesium 1-0 Yes Take by [facility] rs 250 mg Tab 5-21 mouth. ity of 22:05: [place] 48 Medical Branch vitamin B-6 2021-0 Yes 100mg Take 100 U nivers (VITAMIN 5-21 mg by ity of B-6) 100 mg 22:05: mouth [place] tablet 48 daily. Medical Branch CALCIUM Yes Take by [facility] CARBONATE/V 5-21 mouth. ity of ITAMIN D3 22:05: [place] (VITAMIN 48 Medical D-3 ORAL) Branch Magnesium Yes Take by [facility] rs 250 mg Tab 5-21 mouth. ity of 22:05: [place] [address] Medical Branch vitamin B-6 Yes 100mg Take 100 [facility] nivers (VITAMIN 5-21 mg by ity of B-6) 100 mg 22:05: mouth [place] tablet 48 daily. Medical Branch CALCIUM Yes Take by [facility] CARBONATE/V 5-21 mouth. ity of ITAMIN D3 22:05: [place] (VITAMIN 48 Medical D-3 ORAL) Branch Magnesium Yes Take by [facility] rs 250 mg Tab 5-21 mouth. ity of 22:05: [place] [address] Medical Branch vitamin B-6 Yes 100mg Take 100 [facility] (VITAMIN 5-21 mg by ity of B-6) 100 mg 22:05: mouth [place] tablet 48 daily. Medical Branch CALCIUM Yes Take by [facility] CARBONATE/V 5-21 mouth. ity of ITAMIN D3 22:05: [place] (VITAMIN 48 Medical D-3 ORAL) Branch Magnesium Yes Take by [facility] rs 250 mg Tab 5-21 mouth. ity of 22:05: [place] [address] Medical Branch vitamin B-6 Yes 100mg Take 100 [facility] (VITAMIN 5-21 mg by ity of B-6) 100 mg 22:05: mouth [place] tablet 48 daily. Medical Branch CALCIUM Yes Take by [facility] CARBONATE/V 5-21 mouth. ity of ITAMIN D3 22:05: [place] (VITAMIN 48 Medical D-3 ORAL) Branch Magnesium Yes Take by [facility] rs 250 mg Tab 5-21 mouth. ity of 22:05: [place] [address] Medical Branch vitamin B-6 Yes 100mg Take 100 [facility] nivers (VITAMIN 5-21 mg by ity of B-6) 100 mg 22:05: mouth [place] tablet 48 daily. Medical Branch CALCIUM Yes Take by [facility] CARBONATE/V 5-21 mouth. ity of ITAMIN D3 22:05: [place] (VITAMIN 48 Medical D-3 ORAL) Branch Magnesium Yes Take by [facility] rs 250 mg Tab 5-21 mouth. ity of 22:05: [place] [address] Medical Branch vitamin B-6 Yes 100mg Take 100 [facility] nivers (VITAMIN 5-21 mg by ity of B-6) 100 mg 22:05: mouth [place] tablet 48 daily. Medical Branch CALCIUM Yes Take by [facility] CARBONATE/V 5-21 mouth. ity of ITAMIN D3 22:05: [place] (VITAMIN 48 Medical D-3 ORAL) Branch Magnesium Yes Take by [facility] rs 250 mg Tab 5-21 mouth. ity of 22:05: [place] [address] Medical Branch vitamin B-6 Yes 100mg Take 100 [facility] (VITAMIN 5-21 mg by ity of B-6) 100 mg 22:05: mouth [place] tablet 48 daily. Medical Branch CALCIUM Yes Take by [facility] CARBONATE/V 5-21 mouth. ity of ITAMIN D3 22:05: [place] (VITAMIN 48 Medical D-3 ORAL) Branch Magnesium Yes Take by [facility] rs 250 mg Tab 5-21 mouth. ity of 22:05: [address] Branch vitamin B-6 Yes 100mg Take 100 U nivers (VITAMIN 5-21 mg by ity of B-6) 100 mg 22:05: mouth [place] tablet 48 daily. Medical Branch CALCIUM Yes Take by [facility] CARBONATE/V 5-21 mouth. ity of ITAMIN D3 22:05: [place] (VITAMIN 48 Medical D-3 ORAL) Branch Magnesium Yes Take by [facility] rs 250 mg Tab 5-21 mouth. ity of 22:05: [place] [address] Medical Branch vitamin B-6 Yes 100mg Take 100 U [facility] (VITAMIN 5-21 mg by ity of B-6) 100 mg 22:05: mouth [place] tablet 48 daily. Medical Branch CALCIUM Yes Take by [facility] CARBONATE/V 5-21 mouth. ity of ITAMIN D3 22:05: [place] (VITAMIN 48 Medical D-3 ORAL) Branch Magnesium Yes Take by [facility] rs 250 mg Tab 5-21 mouth. ity of 22:05: [place] [address] Medical Branch vitamin B-6 Yes 100mg Take 100 U [facility] (VITAMIN 5-21 mg by ity of B-6) 100 mg 22:05: mouth [place] tablet 48 daily. Medical Branch CALCIUM Yes Take by [facility] CARBONATE/V 5-21 mouth. ity of ITAMIN D3 22:05: [place] (VITAMIN 48 Medical D-3 ORAL) Branch Magnesium Yes Take by [facility] rs 250 mg Tab 5-21 mouth. ity of 22:05: [place] [address] Medical Branch vitamin B-6 Yes 100mg Take 100 U nivers (VITAMIN 5-21 mg by ity of B-6) 100 mg 22:05: mouth [place] tablet 48 daily. Medical Branch CALCIUM Yes Take by [facility] CARBONATE/V 5-21 mouth. ity of ITAMIN D3 22:05: [place] (VITAMIN 48 Medical D-3 ORAL) Branch Magnesium Yes Take by [facility] rs 250 mg Tab 5-21 mouth. ity of 22:05: [place] [address] Medical Branch vitamin B-6 Yes 100mg Take 100 U nivers (VITAMIN 5-21 mg by ity of B-6) 100 mg 22:05: mouth [place] tablet 48 daily. Medical Branch CALCIUM Yes Take by [facility] CARBONATE/V 5-21 mouth. ity of ITAMIN D3 22:05: [place] (VITAMIN 48 Medical D-3 ORAL) Branch Magnesium Yes Take by [facility] rs 250 mg Tab 5-21 mouth. ity of 22:05: [place] [address] Medical Branch vitamin B-6 Yes 100mg Take 100 U nivers (VITAMIN 5-21 mg by ity of B-6) 100 mg 22:05: mouth [place] tablet 48 daily. Medical Branch CALCIUM Yes Take by [facility] CARBONATE/V 5-21 mouth. ity of ITAMIN D3 22:05: [place] (VITAMIN 48 Medical D-3 ORAL) Branch Magnesium Yes Take by [facility] rs 250 mg Tab 5-21 mouth. ity of 22:05: [place] [address] Medical Branch vitamin B-6 Yes 100mg Take 100 U nivers (VITAMIN 5-21 mg by ity of B-6) 100 mg 22:05: mouth [place] tablet 48 daily. Medical Branch CALCIUM Yes Take by [facility] CARBONATE/V 5-21 mouth. ity of ITAMIN D3 22:05: [place] (VITAMIN 48 Medical D-3 ORAL) Branch Magnesium Yes Take by [facility] rs 250 mg Tab 5-21 mouth. ity of 22:05: [place] [address] Medical Branch vitamin B-6 Yes 100mg Take 100 U nivers (VITAMIN 5-21 mg by ity of B-6) 100 mg 22:05: mouth [facility] 48 daily. Medical Branch CALCIUM Yes Take by [facility] CARBONATE/V 5-21 mouth. ity of ITAMIN D3 22:05: [place] (VITAMIN 48 Medical D-3 ORAL) Branch alcaftadine Yes Place in [place] (LASTACAFT) 5-21 each eye. ity of 0.25 % Drop 22:05: [place] [address] Medical Branch CY[address] in [facility] [place] [facility] (RESTASIS 5-21 each eye. ity of OPHTHALMIC) 22:05: [place] [address] Medical Branch vitamin E Yes 1000U Take 1,000 U nivers 1,000 unit 5-21 Units by ity o f capsule 22:05: mouth [place] [address] daily. Medical Branch alcaftadine Yes Place in [facility] [place] (LASTACAFT) 5-21 each eye. ity of 0.25 % Drop 22:05: [place] [address] Medical Branch CYCLOSPORIN Yes Place in [place] E (RESTASIS 5-21 each eye. ity of OPHTHALMIC) 22:05: [place] [address] Medical Branch vitamin E Yes 1000U Take 1,000 U nivers 1,000 unit 5-21 Units by ity o f capsule 22:05: mouth [place] 47 daily. Medical Branch alcaftadine Yes Place in [place] (LASTACAFT) 5-21 each eye. ity of 0.25 % Drop 22:05: [place] [address] Medical Branch CYCLOS[address] Yes Place in [facility] [place] E (RESTASIS 5-21 each eye. ity of OPHTHALMIC) 22:05: [place] [address] Medical Branch vitamin E Yes 1000U Take 1,000 U nivers 1,000 unit 5-21 Units by ity o f capsule 22:05: mouth [place] [address] daily. Medical Branch alcaftadine 2021-[address] in [facility] [place] (LASTACAFT) 5-21 each eye. ity of 0.25 % Drop 22:05: [place] [address] Medical Branch CYCLOSPORIN 2020-[address] in [place] E (RESTASIS 5-21 each eye. ity of OPHTHALMIC) 22:05: [place] [address] Medical Branch vitamin E 2020-0 Yes 1000U Take 1,000 U nivers 1,000 unit 5-21 Units by ity o f capsule 22:05: mouth [place] 47 daily. Medical Branch alcaftadine [address] [place] (LASTACAFT) 5-21 each eye. ity of 0.25 % Drop 22:05: [place] [address] Medical Branch CYCLOSPORIN [address] [place] E (RESTASIS 5-21 each eye. ity of OPHTHALMIC) 22:05: [place] [address] Medical Branch vitamin E 2020-0 Yes 1000U Take 1,000 U nivers 1,000 unit 5-21 Units by ity o f capsule 22:05: mouth [place] [address] daily. Medical Branch alcaftadine [address] [facility] [place] (LASTACAFT) 5-21 each eye. ity of 0.25 % Drop 22:05: [place] [address] Medical Branch CYCLOSPORIN [address] [place] [facility] (RESTASIS 5-21 each eye. ity of OPHTHALMIC) 22:05: [place] [address] Medical Branch vitamin E 2020-0 Yes 1000U Take 1,000 U nivers 1,000 unit 5-21 Units by ity o f capsule 22:05: mouth [place] [address] daily. Medical Branch alcaftadine [address] [place] (LASTACAFT) 5-21 each eye. ity of 0.25 % Drop 22:05: [place] [address] Medical Branch CYCLOSPORIN 2020-[address] in [place] E (RESTASIS 5-21 each eye. ity of OPHTHALMIC) 22:05: [place] [address] Medical Branch vitamin E 2020-0 Yes 1000U Take 1,000 U nivers 1,000 unit 5-21 Units by ity o f capsule 22:05: mouth [place] [address] daily. Medical Branch alcaftadine 2020-[address] in [place] (LASTACAFT) 5-21 each eye. ity of 0.25 % Drop 22:05: [place] [address] Medical Branch CYCLOSPORIN 2020-[address] in [place] [facility] (RESTASIS 5-21 each eye. ity of OPHTHALMIC) 22:05: [place] [address] Medical Branch vitamin E 2020-0 Yes 1000U Take 1,000 U nivers 1,000 unit 5-21 Units by ity o f capsule 22:05: mouth [place] [address] daily. Medical Branch alcaftadine [address] [place] (LASTACAFT) 5-21 each eye. ity of 0.25 % Drop 22:05: [place] [address] Medical Branch CYCLOSPORIN 2020-[address] in [place] [facility] (RESTASIS 5-21 each eye. ity of OPHTHALMIC) 22:05: [place] [address] Medical Branch vitamin E 2020-0 Yes 1000U Take 1,000 U nivers 1,000 unit 5-21 Units by ity o f capsule 22:05: mouth [place] [address] daily. Medical Branch alcaftadine [address] [place] (LASTACAFT) 5-21 each eye. ity of 0.25 % Drop 22:05: [place] [address] Medical Branch CYCLOSPORIN 2020-[address] in [place] [facility] (RESTASIS 5-21 each eye. ity of OPHTHALMIC) 22:05: [place] [address] Medical Branch vitamin E 2020-0 Yes 1000U Take 1,000 U nivers 1,000 unit 5-21 Units by ity o f capsule 22:05: mouth [place] [address] daily. Medical Branch alcaftadine [address] [place] (LASTACAFT) 5-21 each eye. ity of 0.25 % Drop 22:05: [place] [address] Medical Branch CYCLOSPORIN 2020-[address] in [place] [facility] (RESTASIS 5-21 each eye. ity of OPHTHALMIC) 22:05: [place] [address] Medical Branch vitamin E 2020-0 Yes 1000U Take 1,000 U nivers 1,000 unit 5-21 Units by ity o f capsule 22:05: mouth [place] [address] daily. Medical Branch alcaftadine 2020-[address] in [place] (LASTACAFT) 5-21 each eye. ity of 0.25 % Drop 22:05: [place] [address] Medical Branch CYCLOSPORIN 2020-[address] in [place] [facility] (RESTASIS 5-21 each eye. ity of OPHTHALMIC) 22:05: [place] [address] Medical Branch vitamin E 2021-0 Yes 1000U Take 1,000 U nivers 1,000 unit 5-21 Units by ity o f capsule 22:05: mouth [place] 47 daily. Medical Branch alcaftadine [address] [place] (LASTACAFT) 5-21 each eye. ity of 0.25 % Drop 22:05: [place] [address] Medical Branch CYCLOSPORIN Yes Place in [place] E (RESTASIS 5-21 each eye. ity of OPHTHALMIC) 22:05: [place] [address] Medical Branch vitamin E Yes 1000U Take 1,000 U nivers 1,000 unit 5-21 Units by ity o f capsule 22:05: mouth [place] 47 daily. Medical Branch alcaftadine Yes Place in [place] (LASTACAFT) 5-21 each eye. ity of 0.25 % Drop 22:05: [place] [address] Medical Branch CYCLOSPORIN Yes Place in [place] E (RESTASIS 5-21 each eye. ity of OPHTHALMIC) 22:05: [place] [address] Medical Branch vitamin E Yes 1000U Take 1,000 U nivers 1,000 unit 5-21 Units by ity o f capsule 22:05: mouth [place] 47 daily. Medical Branch alcaftadine Yes Place in [place] (LASTACAFT) 5-21 each eye. ity of 0.25 % Drop 22:05: [place] [address] Medical Branch CYCLOSPORIN Yes Place in [place] [facility] (RESTASIS 5-21 each eye. ity of OPHTHALMIC) 22:05: [place] [address] Medical Branch vitamin E Yes 1000U Take 1,000 U nivers 1,000 unit 5-21 Units by ity o f capsule 22:05: mouth [place] 47 daily. Medical Branch Magnesium Yes Take by [facility] rs 250 mg Tab 5-21 mouth. ity of 17:05: [place] [address] Medical Branch vitamin B-6 Yes 100mg Take 100 U n[facility] (VITAMIN 5-21 mg by ity of B-6) 100 mg 17:05: mouth [place] tablet 48 daily. Medical Branch CALCIUM Yes Take by [facility] CARBONATE/V 5-21 mouth. ity of ITAMIN D3 17:05: [place] ([facility] 48 Medical D-3 ORAL) Branch Magnesium Yes Take by Un[facility] rs 250 mg Tab 5-21 mouth. ity of 17:05: [place] [address] Medical Branch vitamin B-6 Yes 100mg Take 100 U nivers (VITAMIN 5-21 mg by ity of B-6) 100 mg 17:05: mouth [place] tablet 48 daily. Medical Branch CALCIUM Yes Take by [facility] CARBONATE/V 5-21 mouth. ity of ITAMIN D3 17:05: [place] (VITAMIN 48 Medical D-3 ORAL) Branch Magnesium Yes Take by [facility] rs 250 mg Tab 5-21 mouth. ity of 17:05: [place] [address] Medical Branch vitamin B-6 Yes 100mg Take 100 U n[facility] (VITAMIN 5-21 mg by ity of B-6) 100 mg 17:05: mouth [place] tablet 48 daily. Medical Branch CALCIUM Yes Take by [facility] CARBONATE/V 5-21 mouth. ity of ITAMIN D3 17:05: [place] (VITAMIN 48 Medical D-3 ORAL) Branch Magnesium Yes Take by [facility] rs 250 mg Tab 5-21 mouth. ity of 17:05: [place] [address] Medical Branch vitamin B-6 Yes 100mg Take 100 U nivers (VITAMIN 5-21 mg by ity of B-6) 100 mg 17:05: mouth [place] tablet 48 daily. Medical Branch CALCIUM Yes Take by [facility] CARBONATE/V 5-21 mouth. ity of ITAMIN D3 17:05: [place] (VITAMIN 48 Medical D-3 ORAL) Branch Magnesium Yes Take by [facility] rs 250 mg Tab 5-21 mouth. ity of 17:05: [place] [address] Medical Branch vitamin B-6 Yes 100mg Take 100 U [facility] (VITAMIN 5-21 mg by ity of B-6) 100 mg 17:05: mouth [place] tablet 48 daily. Medical Branch CALCIUM Yes Take by [facility] CARBONATE/V 5-21 mouth. ity of ITAMIN D3 17:05: [place] (VITAMIN 48 Medical D-3 ORAL) Branch alcaftadine Yes Place in [place] (LASTACAFT) 5-21 each eye. ity of 0.25 % Drop 17:05: [place] [address] Medical Branch CYCLOSPORIN Yes Place in [place] E (RESTASIS 5-21 each eye. ity of OPHTHALMIC) 17:05: [place] [address] Medical Branch vitamin E 2020-0 Yes 1000U Take 1,000 U nivers 1,000 unit 5-21 Units by ity o f capsule 17:05: mouth [place] [address] daily. Medical Branch alcaftadine 2020-[address] in [place] (LASTACAFT) 5-21 each eye. ity of 0.25 % Drop 17:05: [place] [address] Medical Branch CYCLOSPORIN 2020-[address] in [place] (RESTASIS 5-21 each eye. ity of OPHTHALMIC) 17:05: [place] [address] Medical Branch vitamin E 2020-0 Yes 1000U Take 1,000 U nivers 1,000 unit 5-21 Units by ity o f capsule 17:05: mouth [place] [address] daily. Medical Branch alcaftadine 2020-[address] in [place] (LASTACAFT) 5-21 each eye. ity of 0.25 % Drop 17:05: [place] [address] Medical Branch CYCLOSPORIN 2020-[address] in [place] [facility] (RESTASIS 5-21 each eye. ity of OPHTHALMIC) 17:05: [place] [address] Medical Branch vitamin E 2020-0 Yes 1000U Take 1,000 U nivers 1,000 unit 5-21 Units by ity o f capsule 17:05: mouth [place] [address] daily. Medical Branch alcaftadine 2020-[address] in [place] (LASTACAFT) 5-21 each eye. ity of 0.25 % Drop 17:05: [place] [address] Medical Branch CYCLOSPORIN 2020-[address] in [place] (RESTASIS 5-21 each eye. ity of OPHTHALMIC) 17:05: [place] [address] Medical Branch vitamin E 2020-0 Yes 1000U Take 1,000 U nivers 1,000 unit 5-21 Units by ity o f capsule 17:05: mouth [place] [address] daily. Medical Branch alcaftadine 2020-[address] in [place] (LASTACAFT) 5-21 each eye. ity of 0.25 % Drop 17:05: [place] [address] Medical Branch CYCLOSPORIN 2020-[address] in [place] [facility] (RESTASIS 5-21 each eye. ity of OPHTHALMIC) 17:05: [place] [address] Medical Branch vitamin E 2020-0 Yes 1000U Take 1,000 U nivers 1,000 unit 5-21 Units by ity o f capsule 17:05: mouth [place] 47 daily. Medical Branch lisinopriL Yes [id number] 10mg Take 0.5 [facility] 20 mg 5-21 tablets by ity of tablet 00:00: mouth [place] 00 daily. Medical Branch lisinopriL Yes [id number] 10mg Take 0.5 [facility] 20 mg 5-21 tablets by ity of tablet 00:00: mouth [place] 00 daily. Medical Branch lisinopriL Yes [id number] 10mg Take 0.5 [facility] 20 mg 5-21 tablets by ity of tablet 00:00: mouth [place] 00 daily. Medical Branch lisinopriL Yes [id number] 10mg Take 0.5 [facility] 20 mg 5-21 tablets by ity of tablet 00:00: mouth [place] 00 daily. Medical Branch lisinopriL Yes [id number] 10mg Take 0.5 [facility] 20 mg 5-21 tablets by ity of tablet 00:00: mouth [place] 00 daily. Medical Branch lisinopriL Yes [id number] 10mg Take 0.5 [facility] 20 mg 5-21 tablets by ity of tablet 00:00: mouth [place] 00 daily. Medical Branch lisinopriL Yes [id number] 10mg Take 0.5 [facility] 20 mg 5-21 tablets by ity of tablet 00:00: mouth [place] 00 daily. Medical Branch lisinopriL 1- No [id number] 10mg Take 0.5 [facility] 20 mg 5-21 06-22 tablets by ity of tablet 00:00: 00:00 mouth [place] 00 :00 daily. Medical Branch lisinopriL 2020- No [id number] 10mg Take 0.5 [facility] 20 mg 5-21 06-22 tablets by ity of tablet 00:00: 00:00 mouth [place] 00 :00 daily. Medical Branch Blood-Gluco Yes [id number] Check [facility] se Meter 5-11 glucose ity of Kit 00:00: once daily [place] 00 before Medical breakfast; Branch ICD-10 code E11.9 blood sugar 2020-0 Yes [id number] Check [facility] diagnostic 5-11 glucose ity of (BLOOD 00:00: once daily [place] GLUCOSE 00 before Medical TEST) strip breakfast; anch ICD-10 code E11.9 Lancets Yes [id number] Check [facility] ers Misc 5-11 glucose ity of 00:00: once daily [place] 00 before Medical breakfast; Branch ICD-10 code E11.9 pravastatin 2020- Yes [id number] 10mg Take 1 [facility] 10 mg 5-11 [id number] tablet by ity of tablet 00:00: mouth [place] 00 every Medical other day. Branch metformin 2020- Yes [id number] 500mg Take 1 U nivers ER 500 mg 5-11 tablet by ity o f 24 hr 00:00: mouth 2 [place] tablet 00 (two) Medical times Branch daily with meals. Blood-Gluco Yes [id number] Check [facility] se Meter 5-11 glucose ity of Kit 00:00: once daily [place] 00 before Medical breakfast; Branch ICD-10 code E11.9 blood sugar Yes [id number] Check [facility] diagnostic 5-11 glucose ity of (BLOOD 00:00: once daily [place] GLUCOSE 00 before Medical TEST) strip breakfast; Br anch ICD-10 code E11.9 Lancets Yes [id number] Check Univ ers Misc 5-11 glucose ity of 00:00: once daily [place] 00 before Medical breakfast; Branch ICD-10 code E11.9 pravastatin Yes [id number] 10mg Take 1 [facility] 10 mg 5-11 [id number] tablet by ity of tablet 00:00: mouth [place] 00 every Medical other day. Branch metformin 2020- Yes [id number] 500mg Take 1 U nivers ER 500 mg 5-11 tablet by ity o f 24 hr 00:00: mouth 2 [place] tablet 00 (two) Medical times Branch daily with meals. Blood-Gluco Yes [id number] Check [facility] se Meter 5-11 glucose ity of Kit 00:00: once daily [place] 00 before Medical breakfast; Branch ICD-10 code E11.9 blood sugar Yes [id number] Check [facility] diagnostic 5-11 glucose ity of (BLOOD 00:00: once daily [place] GLUCOSE 00 before Medical TEST) strip breakfast; Br anch ICD-10 code E11.9 Lancets Yes [id number] Check Univ ers Misc 5-11 glucose ity of 00:00: once daily [place] 00 before Medical breakfast; Branch ICD-10 code E11.9 pravastatin 2020-0 Yes [id number] 10mg Take 1 [facility] 10 mg 5-11 [id number] tablet by ity of tablet 00:00: mouth [place] 00 every Medical other day. Branch metformin 0 Yes [id number] 500mg Take 1 U nivers ER 500 mg 5-11 tablet by ity o f 24 hr 00:00: mouth 2 [place] tablet 00 (two) Medical times Branch daily with meals. Blood-Gluco Yes [id number] Check [facility] se Meter 5-11 glucose ity of Kit 00:00: once daily [place] 00 before Medical breakfast; Branch ICD-10 code E11.9 blood sugar Yes [id number] Check [facility] diagnostic 5-11 glucose ity of (BLOOD 00:00: once daily [place] GLUCOSE 00 before Medical TEST) strip breakfast; Br anch ICD-10 code E11.9 Lancets Yes [id number] Check Univ ers Misc 5-11 glucose ity of 00:00: once daily [place] 00 before Medical breakfast; Branch ICD-10 code E11.9 pravastatin Yes [id number] 10mg Take 1 [facility] 10 mg 5-11 [id number] tablet by ity of tablet 00:00: mouth [place] 00 every Medical other day. Branch metformin 2020- Yes [id number] 500mg Take 1 U nivers ER 500 mg 5-11 tablet by ity o f 24 hr 00:00: mouth 2 [place] tablet 00 (two) Medical times Branch daily with meals. Blood-Gluco Yes [id number] Check [facility] se Meter 5-11 glucose ity of Kit 00:00: once daily [place] 00 before Medical breakfast; Branch ICD-10 code E11.9 blood sugar Yes [id number] Check [facility] diagnostic 5-11 glucose ity of (BLOOD 00:00: once daily [place] GLUCOSE 00 before Medical TEST) strip breakfast; Br anch ICD-10 code E11.9 Lancets 0 Yes [id number] Check Univ ers Misc 5-11 glucose ity of 00:00: once daily [place] 00 before Medical breakfast; Branch ICD-10 code E11.9 pravastatin 2020-0 Yes [id number] 10mg Take 1 [facility] 10 mg 5-11 [id number] tablet by ity of tablet 00:00: mouth [place] 00 every Medical other day. Branch metformin 0 Yes [id number] 500mg Take 1 [facility] ER 500 mg 5-11 tablet by ity o f 24 hr 00:00: mouth 2 [place] tablet 00 (two) Medical times Branch daily with meals. Blood-Gluco 2020-0 Yes [id number] Check [facility] se Meter 5-11 glucose ity of Kit 00:00: once daily [place] 00 before Medical breakfast; Branch ICD-10 code E11.9 blood sugar Yes [id number] Check Univers diagnostic 5-11 glucose ity of (BLOOD 00:00: once daily [place] GLUCOSE 00 before Medical TEST) strip breakfast; Br anch ICD-10 code E11.9 Lancets Yes [id number] Check [facility] ers Misc 5-11 glucose ity of 00:00: once daily [place] 00 before Medical breakfast; Branch ICD-10 code E11.9 pravastatin 0 Yes [id number] 10mg Take 1 [facility] 10 mg 5-11 [id number] tablet by ity of tablet 00:00: mouth [place] 00 every Medical other day. Branch metformin 2020- Yes [id number] 500mg Take 1 [facility] nivers ER 500 mg 5-11 tablet by ity o f 24 hr 00:00: mouth 2 [place] tablet 00 (two) Medical times Branch daily with meals. Blood-Gluco Yes [id number] Check [facility] se Meter 5-11 glucose ity of Kit 00:00: once daily [place] 00 before Medical breakfast; Branch ICD-10 code E11.9 blood sugar 0 Yes [id number] Check [facility] diagnostic 5-11 glucose ity of (BLOOD 00:00: once daily [place] GLUCOSE 00 before Medical TEST) strip breakfast; Br anch ICD-10 code E11.9 Lancets 0 Yes [id number] Check [facility] ers Misc 5-11 glucose ity of 00:00: once daily [place] 00 before Medical breakfast; Branch ICD-10 code E11.9 pravastatin 2020-0 Yes [id number] 10mg Take 1 [facility] 10 mg 5-11 [id number] tablet by ity of tablet 00:00: mouth [place] 00 every Medical other day. Branch metformin 2020-0 Yes [id number] 500mg Take 1 [facility] nivers ER 500 mg 5-11 tablet by ity o f 24 hr 00:00: mouth 2 [place] tablet 00 (two) Medical times Branch daily with meals. Blood-Gluco 2020-0 Yes [id number] Check [facility] se Meter 5-11 glucose ity of Kit 00:00: once daily [place] 00 before Medical breakfast; Branch ICD-10 code E11.9 blood sugar 2020-0 Yes [id number] Check [facility] diagnostic 5-11 glucose ity of (BLOOD 00:00: once daily [place] GLUCOSE 00 before Medical TEST) strip breakfast; Br anch ICD-10 code E11.9 Lancets 2020-0 Yes [id number] Check [facility] ers Misc 5-11 glucose ity of 00:00: once daily [place] 00 before Medical breakfast; Branch ICD-10 code E11.9 pravastatin 2020-0 Yes [id number] 10mg Take 1 [facility] 10 mg 5-11 [id number] tablet by ity of tablet 00:00: mouth [place] 00 every Medical other day. Branch metformin 2020-0 Yes [id number] 500mg Take 1 [facility] nivers ER 500 mg 5-11 tablet by ity o f 24 hr 00:00: mouth 2 [place] tablet 00 (two) Medical times Branch daily with meals. Blood-Gluco 2020-0 Yes [id number] Check [facility] se Meter 5-11 glucose ity of Kit 00:00: once daily [place] 00 before Medical breakfast; Branch ICD-10 code E11.9 blood sugar 2020-0 Yes [id number] Check [facility] diagnostic 5-11 glucose ity of (BLOOD 00:00: once daily [place] GLUCOSE 00 before Medical TEST) strip breakfast; Br anch ICD-10 code E11.9 Lancets 2020-0 Yes [id number] Check [facility] ers Misc 5-11 glucose ity of 00:00: once daily [place] 00 before Medical breakfast; Branch ICD-10 code E11.9 pravastatin 2020-0 Yes [id number] 10mg Take 1 [facility] 10 mg 5-11 [id number] tablet by ity of tablet 00:00: mouth [place] 00 every Medical other day. Branch metformin 2020-0 Yes [id number] 500mg Take 1 [facility] nivers ER 500 mg 5-11 tablet by ity o f 24 hr 00:00: mouth 2 [place] tablet 00 (two) Medical times Branch daily with meals. Blood-Gluco 2020-0 Yes [id number] Check [facility] se Meter 5-11 glucose ity of Kit 00:00: once daily [place] 00 before Medical breakfast; Branch ICD-10 code E11.9 blood sugar 2020-0 Yes [id number] Check [facility] diagnostic 5-11 glucose ity of (BLOOD 00:00: once daily [place] GLUCOSE 00 before Medical TEST) strip breakfast; Br anch ICD-10 code E11.9 Lancets 2020-0 Yes [id number] Check [facility] ers Misc 5-11 glucose ity of 00:00: once daily [place] 00 before Medical breakfast; Branch ICD-10 code E11.9 pravastatin 2020-0 Yes [id number] 10mg Take 1 [facility] 10 mg 5-11 [id number] tablet by ity of tablet 00:00: mouth [place] 00 every Medical other day. Branch metformin 2020-0 Yes [id number] 500mg Take 1 [facility] nivers ER 500 mg 5-11 tablet by ity o f 24 hr 00:00: mouth 2 [place] tablet 00 (two) Medical times Branch daily with meals. Blood-Gluco 0 Yes [id number] Check [facility] se Meter 5-11 glucose ity of Kit 00:00: once daily [place] 00 before Medical breakfast; Branch ICD-10 code E11.9 blood sugar Yes [id number] Check [facility] diagnostic 5-11 glucose ity of (BLOOD 00:00: once daily [place] GLUCOSE 00 before Medical TEST) strip breakfast; Br anch ICD-10 code E11.9 Lancets Yes [id number] Check [facility] ers Misc 5-11 glucose ity of 00:00: once daily [place] 00 before Medical breakfast; Branch ICD-10 code E11.9 pravastatin 2020-0 Yes [id number] 10mg Take 1 [facility] 10 mg 5-11 [id number] tablet by ity of tablet 00:00: mouth [place] 00 every Medical other day. Branch metformin 2020-0 Yes [id number] 500mg Take 1 [facility] nivers ER 500 mg 5-11 tablet by ity o f 24 hr 00:00: mouth 2 [place] tablet 00 (two) Medical times Branch daily with meals. Blood-Gluco 2020-0 Yes [id number] Check [facility] se Meter 5-11 glucose ity of Kit 00:00: once daily [place] 00 before Medical breakfast; Branch ICD-10 code E11.9 blood sugar 2020-0 Yes [id number] Check [facility] diagnostic 5-11 glucose ity of (BLOOD 00:00: once daily [place] GLUCOSE 00 before Medical TEST) strip breakfast; Br anch ICD-10 code E11.9 Lancets Yes [id number] Check [facility] ers Misc 5-11 glucose ity of 00:00: once daily [place] 00 before Medical breakfast; Branch ICD-10 code E11.9 pravastatin Yes [id number] 10mg Take 1 [facility] 10 mg 5-11 [id number] tablet by ity of tablet 00:00: mouth [place] 00 every Medical other day. Branch metformin Yes [id number] 500mg Take 1 [facility] nivers ER 500 mg 5-11 tablet by ity o f 24 hr 00:00: mouth 2 [place] tablet 00 (two) Medical times Branch daily with meals. Blood-Gluco Yes [id number] Check [facility] se Meter 5-11 glucose ity of Kit 00:00: once daily [place] 00 before Medical breakfast; Branch ICD-10 code E11.9 blood sugar Yes [id number] Check [facility] diagnostic 5-11 glucose ity of (BLOOD 00:00: once daily [place] GLUCOSE 00 before Medical TEST) strip breakfast; Br anch ICD-10 code E11.9 Lancets Yes [id number] Check [facility] ers Misc 5-11 glucose ity of 00:00: once daily [place] 00 before Medical breakfast; Branch ICD-10 code E11.9 pravastatin Yes [id number] 10mg Take 1 [facility] 10 mg 5-11 [id number] tablet by ity of tablet 00:00: mouth [place] 00 every Medical other day. Branch metformin Yes [id number] 500mg Take 1 [facility] nivers ER 500 mg 5-11 tablet by ity o f 24 hr 00:00: mouth 2 [place] tablet 00 (two) Medical times Branch daily with meals. Blood-Gluco Yes [id number] Check [facility] se Meter 5-11 glucose ity of Kit 00:00: once daily [place] 00 before Medical breakfast; Branch ICD-10 code E11.9 blood sugar Yes [id number] Check [facility] diagnostic 5-11 glucose ity of (BLOOD 00:00: once daily [place] GLUCOSE 00 before Medical TEST) strip breakfast; Br anch ICD-10 code E11.9 Lancets Yes [id number] Check [facility] ers Misc 5-11 glucose ity of 00:00: once daily [place] 00 before Medical breakfast; Branch ICD-10 code E11.9 pravastatin 2020-0 Yes [id number] 10mg Take 1 [facility] 10 mg 5-11 [id number] tablet by ity of tablet 00:00: mouth [place] 00 every Medical other day. Branch metformin 2020-0 Yes [id number] 500mg Take 1 [facility] nivers ER 500 mg 5-11 tablet by ity o f 24 hr 00:00: mouth 2 [place] tablet 00 (two) Medical times Branch daily with meals. Blood-Gluco 2020-0 Yes [id number] Check [facility] se Meter 5-11 glucose ity of Kit 00:00: once daily [place] 00 before Medical breakfast; Branch ICD-10 code E11.9 blood sugar 2020-0 Yes [id number] Check [facility] diagnostic 5-11 glucose ity of (BLOOD 00:00: once daily [place] GLUCOSE 00 before Medical TEST) strip breakfast; Br anch ICD-10 code E11.9 Lancets 0 Yes [id number] Check [facility] ers Misc 5-11 glucose ity of 00:00: once daily [place] 00 before Medical breakfast; Branch ICD-10 code E11.9 pravastatin 2020-0 Yes [id number] 10mg Take 1 [facility] 10 mg 5-11 [id number] tablet by ity of tablet 00:00: mouth [place] 00 every Medical other day. Branch metformin 2020-0 Yes [id number] 500mg Take 1 [facility] nivers ER 500 mg 5-11 tablet by ity o f 24 hr 00:00: mouth 2 [place] tablet 00 (two) Medical times Branch daily with meals. Blood-Gluco 2020-0 Yes [id number] Check [facility] se Meter 5-11 glucose ity of Kit 00:00: once daily [place] 00 before Medical breakfast; Branch ICD-10 code E11.9 blood sugar 2020-0 Yes [id number] Check [facility] diagnostic 5-11 glucose ity of (BLOOD 00:00: once daily [place] GLUCOSE 00 before Medical TEST) strip breakfast; Br anch ICD-10 code E11.9 Lancets 2020-0 Yes [id number] Check [facility] ers Misc 5-11 glucose ity of 00:00: once daily [place] 00 before Medical breakfast; Branch ICD-10 code E11.9 pravastatin 2020-0 Yes [id number] 10mg Take 1 [facility] 10 mg 5-11 [id number] tablet by ity of tablet 00:00: mouth [place] 00 every Medical other day. Branch metformin 2020-0 Yes [id number] 500mg Take 1 [facility] nivers ER 500 mg 5-11 tablet by ity o f 24 hr 00:00: mouth 2 [place] tablet 00 (two) Medical times Branch daily with meals. Blood-Gluco 2020-0 Yes [id number] Check [facility] se Meter 5-11 glucose ity of Kit 00:00: once daily [place] 00 before Medical breakfast; Branch ICD-10 code E11.9 blood sugar 0 Yes [id number] Check [facility] diagnostic 5-11 glucose ity of (BLOOD 00:00: once daily [place] GLUCOSE 00 before Medical TEST) strip breakfast; Br anch ICD-10 code E11.9 Lancets Yes [id number] Check [facility] ers Misc 5-11 glucose ity of 00:00: once daily [place] 00 before Medical breakfast; Branch ICD-10 code E11.9 pravastatin 2020-0 Yes [id number] 10mg Take 1 [facility] 10 mg 5-11 [id number] tablet by ity of tablet 00:00: mouth [place] 00 every Medical other day. Branch metformin 2020- Yes [id number] 500mg Take 1 [facility] nivers ER 500 mg 5-11 tablet by ity o f 24 hr 00:00: mouth 2 [place] tablet 00 (two) Medical times Branch daily with meals. Blood-Gluco 2020-0 Yes [id number] Check [facility] se Meter 5-11 glucose ity of Kit 00:00: once daily [place] 00 before Medical breakfast; Branch ICD-10 code E11.9 blood sugar 2020-0 Yes [id number] Check [facility] diagnostic 5-11 glucose ity of (BLOOD 00:00: once daily [place] GLUCOSE 00 before Medical TEST) strip breakfast; Br anch ICD-10 code E11.9 Lancets 2020-0 Yes [id number] Check [facility] ers Misc 5-11 glucose ity of 00:00: once daily [place] 00 before Medical breakfast; Branch ICD-10 code E11.9 pravastatin 2020-0 Yes [id number] 10mg Take 1 [facility] 10 mg 5-11 [id number] tablet by ity of tablet 00:00: mouth [place] 00 every Medical other day. Branch metformin 2020-0 Yes [id number] 500mg Take 1 [facility] nivers ER 500 mg 5-11 tablet by ity o f 24 hr 00:00: mouth 2 [place] tablet 00 (two) Medical times Branch daily with meals. Blood-Gluco 2020-0 Yes [id number] Check [facility] se Meter 5-11 glucose ity of Kit 00:00: once daily [place] 00 before Medical breakfast; Branch ICD-10 code E11.9 blood sugar 2020-0 Yes [id number] Check [facility] diagnostic 5-11 glucose ity of (BLOOD 00:00: once daily [place] GLUCOSE 00 before Medical TEST) strip breakfast; Br anch ICD-10 code E11.9 Lancets 2020-0 Yes [id number] Check [facility] ers Misc 5-11 glucose ity of 00:00: once daily [place] 00 before Medical breakfast; Branch ICD-10 code E11.9 pravastatin 2020-0 Yes [id number] 10mg Take 1 [facility] 10 mg 5-11 [id number] tablet by ity of tablet 00:00: mouth [place] 00 every Medical other day. Branch metformin 2020-0 Yes [id number] 500mg Take 1 [facility] nivers ER 500 mg 5-11 tablet by ity o f 24 hr 00:00: mouth 2 [place] tablet 00 (two) Medical times Branch daily with meals. Blood-Gluco 2020-0 Yes [id number] Check [facility] se Meter 5-11 glucose ity of Kit 00:00: once daily [place] 00 before Medical breakfast; Branch ICD-10 code E11.9 blood sugar 0 Yes [id number] Check [facility] diagnostic 5-11 glucose ity of (BLOOD 00:00: once daily [place] GLUCOSE 00 before Medical TEST) strip breakfast; Br anch ICD-10 code E11.9 Lancets 2020-0 Yes [id number] Check [facility] ers Misc 5-11 glucose ity of 00:00: once daily [place] 00 before Medical breakfast; Branch ICD-10 code E11.9 pravastatin 2020-0 Yes [id number] 10mg Take 1 [facility] 10 mg 5-11 [id number] tablet by ity of tablet 00:00: mouth [place] 00 every Medical other day. Branch metformin 2020-0 Yes [id number] 500mg Take 1 [facility] nivers ER 500 mg 5-11 tablet by ity o f 24 hr 00:00: mouth 2 [place] tablet 00 (two) Medical times Branch daily with meals. Blood-Gluco 2020-0 Yes [id number] Check [facility] se Meter 5-11 glucose ity of Kit 00:00: once daily [place] 00 before Medical breakfast; Branch ICD-10 code E11.9 blood sugar 0 Yes [id number] Check [facility] diagnostic 5-11 glucose ity of (BLOOD 00:00: once daily [place] GLUCOSE 00 before Medical TEST) strip breakfast; Br anch ICD-10 code E11.9 Lancets 2020-0 Yes [id number] Check [facility] ers Misc 5-11 glucose ity of 00:00: once daily [place] 00 before Medical breakfast; Branch ICD-10 code E11.9 pravastatin 2020-0 Yes [id number] 10mg Take 1 [facility] 10 mg 5-11 [id number] tablet by ity of tablet 00:00: mouth [place] 00 every Medical other day. Branch metformin 2020-0 Yes [id number] 500mg Take 1 U nivers ER 500 mg 5-11 tablet by ity o f 24 hr 00:00: mouth 2 [place] tablet 00 (two) Medical times Branch daily with meals. Blood-Gluco 0 Yes [id number] Check [facility] se Meter 5-11 glucose ity of Kit 00:00: once daily [place] 00 before Medical breakfast; Branch ICD-10 code E11.9 blood sugar 2020-0 Yes [id number] Check [facility] diagnostic 5-11 glucose ity of (BLOOD 00:00: once daily [place] GLUCOSE 00 before Medical TEST) strip breakfast; Br anch ICD-10 code E11.9 Lancets Yes [id number] Check [facility] ers Misc 5-11 glucose ity of 00:00: once daily [place] 00 before Medical breakfast; Branch ICD-10 code E11.9 pravastatin 2020-0 Yes [id number] 10mg Take 1 [facility] 10 mg 5-11 [id number] tablet by ity of tablet 00:00: mouth [place] 00 every Medical other day. Branch metformin 2020-0 Yes [id number] 500mg Take 1 U nivers ER 500 mg 5-11 tablet by ity o f 24 hr 00:00: mouth 2 [place] tablet 00 (two) Medical times Branch daily with meals. Blood-Gluco 2020-0 Yes [id number] Check [facility] se Meter 5-11 glucose ity of Kit 00:00: once daily [place] 00 before Medical breakfast; Branch ICD-10 code E11.9 blood sugar 2020-0 Yes [id number] Check [facility] diagnostic 5-11 glucose ity of (BLOOD 00:00: once daily [place] GLUCOSE 00 before Medical TEST) strip breakfast; Br anch ICD-10 code E11.9 Lancets 0 Yes [id number] Check [facility] ers Misc 5-11 glucose ity of 00:00: once daily [place] 00 before Medical breakfast; Branch ICD-10 code E11.9 pravastatin 2020-0 Yes [id number] 10mg Take 1 [facility] 10 mg 5-11 [id number] tablet by ity of tablet 00:00: mouth [place] 00 every Medical other day. Branch metformin 2020-0 Yes [id number] 500mg Take 1 U nivers ER 500 mg 5-11 tablet by ity o f 24 hr 00:00: mouth 2 [place] tablet 00 (two) Medical times [place] daily with meals. Blood-Gluco Yes [id number] Check [facility] se Meter 5-11 glucose ity of Kit 00:00: once daily [place] 00 before Medical breakfast; Branch ICD-10 code E11.9 blood sugar 0 Yes [id number] Check [facility] diagnostic 5-11 glucose ity of (BLOOD 00:00: once daily [place] GLUCOSE 00 before Medical TEST) strip breakfast; Br [facility] ICD-10 code E11.9 Lancets 0 Yes [id number] Check [facility] ers Misc 5-11 glucose ity of 00:00: once daily [place] 00 before Medical breakfast; Branch ICD-10 code E11.9 pravastatin 0 Yes [id number] 10mg Take 1 [facility] 10 mg 5-11 [id number] tablet by ity of tablet 00:00: mouth [place] 00 every Medical other day. Branch metformin 2020-0 Yes [id number] 500mg Take 1 U nivers ER 500 mg 5-11 tablet by ity o f 24 hr 00:00: mouth 2 [place] tablet 00 (two) Medical times [place] daily with meals. LEVOTHYROXI 2020- Yes [id number] TAKE 1 [facility] NE 50 mcg 5-05 TABLET BY ity o f tablet 00:00: MOUTH [place] 00 EVERY DAY Medical IN THE [place] MORNING LEVOTHYROXI 2020-0 Yes [id number] TAKE 1 [facility] NE 50 mcg 5-05 TABLET BY ity o f tablet 00:00: MOUTH [place] 00 EVERY DAY Medical IN THE [place] MORNING LEVOTHYROXI 2020-0 Yes [id number] TAKE 1 [facility] NE 50 mcg 5-05 TABLET BY ity o f tablet 00:00: MOUTH [place] 00 EVERY DAY Medical IN THE [place] MORNING LEVOTHYROXI Yes [id number] TAKE 1 [facility] NE 50 mcg 5-05 TABLET BY ity o f tablet 00:00: MOUTH [place] 00 EVERY DAY Medical IN THE [facility] LEVOTHYROXI Yes [id number] TAKE 1 [facility] NE 50 mcg 5-05 TABLET BY ity o f tablet 00:00: MOUTH [place] 00 EVERY DAY Medical IN THE [facility] LEVOTHYROXI Yes [id number] TAKE 1 [facility] NE 50 mcg 5-05 TABLET BY ity o f tablet 00:00: MOUTH [place] 00 EVERY DAY Medical IN THE [facility] LEVOTHYROXI Yes [id number] TAKE 1 [facility] NE 50 mcg 5-05 TABLET BY ity o f tablet 00:00: MOUTH [place] 00 EVERY DAY Medical IN THE [facility] LEVOTHYROXI Yes [id number] TAKE 1 [facility] NE 50 mcg 5-05 TABLET BY ity o f tablet 00:00: MOUTH [place] 00 EVERY DAY Medical IN THE [facility] LEVOTHYROXI Yes [id number] TAKE 1 [facility] NE 50 mcg 5-05 TABLET BY ity o f tablet 00:00: MOUTH [place] 00 EVERY DAY Medical IN THE [facility] LEVOTHYROXI Yes [id number] TAKE 1 [facility] NE 50 mcg 5-05 TABLET BY ity o f tablet 00:00: MOUTH [place] 00 EVERY DAY Medical IN THE [facility] LEVOTHYROXI Yes [id number] TAKE 1 [facility] NE 50 mcg 5-05 TABLET BY ity o f tablet 00:00: MOUTH [place] 00 EVERY DAY Medical IN THE [facility] LEVOTHYROXI 2020- No [id number] TAKE 1 [facility] NE 50 mcg 5-05 06-21 TABLET BY ity of tablet 00:00: 00:00 MOUTH [place] 00 :00 EVERY DAY Medical IN THE [facility] metformin Yes Univers ER 750 mg 5-03 ity of 24 hr 00:00: [place] tablet 00 [facility] metformin Yes Univers ER 750 mg 5-03 ity of 24 hr 00:00: [place] tablet 00 [facility] metformin Yes Univers ER 750 mg 5-03 ity of 24 hr 00:00: [place] tablet 00 [facility] metformin Yes Univers ER 750 mg [...] 00:00: [place] tablet 00 Medical Branch TRAZODONE 2021-0 Yes [id number] TAKE 1 U nivers 100 mg 3-18 TABLET BY ity of tablet 00:00: MOUTH 00 EVERY DAY Medical AT BEDTIME Branch NEEDED FOR INSOMNIA TRAZODONE 2020-0 Yes [id number] TAKE 1 U nivers 100 mg 3-18 TABLET BY ity of tablet 00:00: MOUTH 00 EVERY DAY Medical AT BEDTIME Branch NEEDED FOR INSOMNIA TRAZODONE 1-0 Yes [id number] TAKE 1 U nivers 100 mg 3-18 TABLET BY ity of tablet 00:00: MOUTH EVERY DAY Medical AT BEDTIME Branch NEEDED FOR INSOMNIA TRAZODONE 1-0 Yes [id number] TAKE 1 U nivers 100 mg 3-18 TABLET BY ity of tablet 00:00: MOUTH 00 EVERY DAY Medical AT BEDTIME Branch NEEDED FOR INSOMNIA TRAZODONE 1-0 Yes [id number] TAKE 1 U nivers 100 mg 3-18 TABLET BY ity of tablet 00:00: MOUTH EVERY DAY Medical AT BEDTIME Branch NEEDED FOR INSOMNIA TRAZODONE 1-0 Yes [id number] TAKE 1 U nivers 100 mg 3-18 TABLET BY ity of tablet 00:00: MOUTH EVERY DAY Medical AT BEDTIME Branch NEEDED FOR INSOMNIA TRAZODONE 1-0 Yes [id number] TAKE 1 U nivers 100 mg 3-18 TABLET BY ity of tablet 00:00: MOUTH [place] 00 EVERY DAY Medical AT BEDTIME Branch NEEDED FOR INSOMNIA TRAZODONE 1-0 Yes [id number] TAKE 1 U nivers 100 mg 3-18 TABLET BY ity of tablet 00:00: EVERY DAY Medical AT BEDTIME Branch NEEDED FOR INSOMNIA TRAZODONE 2020-0 Yes [id number] TAKE 1 U nivers 100 mg 3-18 TABLET BY ity of tablet 00:00: EVERY DAY Medical AT BEDTIME Branch NEEDED FOR INSOMNIA TRAZODONE 2020-0 Yes [id number] TAKE 1 U nivers 100 mg 3-18 TABLET BY ity of tablet 00:00: EVERY DAY Medical AT BEDTIME Branch NEEDED FOR INSOMNIA TRAZODONE 2020-0 Yes [id number] TAKE 1 U nivers 100 mg 3-18 TABLET BY ity of tablet 00:00: EVERY DAY Medical AT BEDTIME Branch NEEDED FOR INSOMNIA TRAZODONE 2020-0 Yes [id number] TAKE 1 U nivers 100 mg 3-18 TABLET BY ity of tablet 00:00: EVERY DAY Medical AT BEDTIME Branch NEEDED FOR INSOMNIA TRAZODONE 2020-0 Yes [id number] TAKE 1 U nivers 100 mg 3-18 TABLET BY ity of tablet 00:00: EVERY DAY Medical AT BEDTIME Branch NEEDED FOR INSOMNIA TRAZODONE 2020-0 Yes [id number] TAKE 1 U nivers 100 mg 3-18 TABLET BY ity of tablet 00:00: EVERY DAY Medical AT BEDTIME Branch NEEDED FOR INSOMNIA TRAZODONE 1-0 Yes [id number] TAKE 1 U nivers 100 mg 3-18 TABLET BY ity of tablet 00:00: EVERY DAY Medical AT BEDTIME Branch NEEDED FOR INSOMNIA TRAZODONE 1-0 Yes [id number] TAKE 1 U nivers 100 mg 3-18 TABLET BY ity of tablet 00:00: EVERY DAY Medical AT BEDTIME Branch NEEDED FOR INSOMNIA TRAZODONE 1-0 Yes [id number] TAKE 1 U nivers 100 mg 3-18 TABLET BY ity of tablet 00:00: EVERY DAY Medical AT BEDTIME Branch NEEDED FOR INSOMNIA TRAZODONE 1-0 Yes [id number] TAKE 1 U nivers 100 mg 3-18 TABLET BY ity of tablet 00:00: MOUTH [place] EVERY DAY Medical AT BEDTIME Branch NEEDED FOR INSOMNIA TRAZODONE 2020-0 Yes [id number] TAKE 1 U nivers 100 mg 3-18 TABLET BY ity of tablet 00:00: MOUTH [place] EVERY DAY Medical AT BEDTIME Branch NEEDED FOR INSOMNIA TRAZODONE 2020-0 Yes [id number] TAKE 1 U nivers 100 mg 3-18 TABLET BY ity of tablet 00:00: MOUTH [place] EVERY DAY Medical AT BEDTIME Branch NEEDED FOR INSOMNIA TRAZODONE 2020-0 Yes [id number] TAKE 1 U nivers 100 mg 3-18 TABLET BY ity of tablet 00:00: [facility] EVERY DAY Medical AT BEDTIME Branch NEEDED FOR INSOMNIA TRAZODONE 2020-0 Yes [id number] TAKE 1 U nivers 100 mg 3-18 TABLET BY ity of tablet 00:00: MOUTH [place] EVERY DAY Medical AT BEDTIME Branch NEEDED FOR INSOMNIA TRAZODONE 2020-0 Yes [id number] TAKE 1 U nivers 100 mg 3-18 TABLET BY ity of tablet 00:00: MOUTH EVERY DAY Medical AT BEDTIME Branch NEEDED FOR INSOMNIA TRAZODONE 2020-0 Yes [id number] TAKE 1 U nivers 100 mg 3-18 TABLET BY ity of tablet 00:00: MOUTH [place] EVERY DAY Medical AT BEDTIME Branch NEEDED FOR INSOMNIA TRAZODONE 2020-0 Yes [id number] TAKE 1 U nivers 100 mg 3-18 TABLET BY ity of tablet 00:00: [facility] EVERY DAY Medical AT BEDTIME Branch NEEDED FOR INSOMNIA TRAZODONE 2020-0 Yes [id number] TAKE 1 U nivers 100 mg 3-18 TABLET BY ity of tablet 00:00: MOUTH [place] EVERY DAY Medical AT BEDTIME Branch NEEDED FOR INSOMNIA metroNIDAZO 2020-0 2020- No 500mg 500 mg, IV Univers LE in NaCl 11-14 Infusion, ity of (iso-os) 21:45: 09:44 ONCE, 1 [place] (FLAGYL 00 :00 dose, [facility] RTU 11/14/20 at [facility] IV infusion 1545, 100 500 mg mL
[...] Branch injection 1400, 100 mL Routine ciprofloxac 2020-0 Yes [id number] 500mg Take 1 Univers in HCl 500 2-28 tablet by ity of mg tablet 00:00: mouth 2 (two) Medical times Branch daily. metroNIDAZO 2020-0 Yes [id number] 500mg Take 1 [facility] LE 500 mg 2-28 tablet by ity o f tablet 00:00: mouth 2 (two) Medical times Branch daily. ciprofloxac 2020-0 Yes [id number] 500mg Take 1 [facility] in HCl 500 2-28 tablet by ity of mg tablet 00:00: mouth (two) Medical times Branch daily. metroNIDAZO 2020-0 Yes [id number] 500mg Take 1 [facility] LE 500 mg 2-28 tablet by ity o f tablet 00:00: mouth (two) Medical times Branch daily. ciprofloxac 2020-0 Yes [id number] 500mg Take 1 [facility] in HCl 500 2-28 tablet by ity of mg tablet 00:00: mouth (two) Medical times Branch daily. metroNIDAZO 2020-0 Yes [id number] 500mg Take 1 [facility] LE 500 mg 2-28 tablet by ity o f tablet 00:00: mouth 2 (two) Medical times Branch daily. ciprofloxac 2020-0 Yes [id number] 500mg Take 1 [facility] in HCl 500 2-28 tablet by ity of mg tablet 00:00: mouth (two) Medical times Branch daily. metroNIDAZO 2020-0 Yes [id number] 500mg Take 1 [facility] LE 500 mg 2-28 tablet by ity o f tablet 00:00: mouth 2 (two) Medical times Branch daily. ciprofloxac 2020-0 Yes [id number] 500mg Take 1 [facility] in HCl 500 2-28 tablet by ity of mg tablet 00:00: mouth (two) Medical times Branch daily. metroNIDAZO 1-0 Yes [id number] 500mg Take 1 [facility] LE 500 mg 2-28 tablet by ity o f tablet 00:00: mouth (two) Medical times Branch daily. ciprofloxac 1-0 Yes [id number] 500mg Take 1 [facility] in HCl 500 2-28 tablet by ity of mg tablet 00:00: mouth (two) Medical times Branch daily. metroNIDAZO 2020-0 Yes [id number] 500mg Take 1 [facility] LE 500 mg 2-28 tablet by ity o f tablet 00:00: mouth (two) Medical times Branch daily. ciprofloxac 1-0 Yes [id number] 500mg Take 1 [facility] in HCl 500 2-28 tablet by ity of mg tablet 00:00: mouth (two) Medical times Branch daily. metroNIDAZO 2020-0 Yes [id number] 500mg Take 1 [facility] LE 500 mg 2-28 tablet by ity o f tablet 00:00: mouth (two) Medical times Branch daily. ciprofloxac 2020-0 Yes [id number] 500mg Take 1 [facility] in HCl 500 2-28 tablet by ity of mg tablet 00:00: mouth (two) Medical times Branch daily. metroNIDAZO 2020-0 Yes [id number] 500mg Take 1 [facility] LE 500 mg 2-28 tablet by ity o f tablet 00:00: mouth (two) Medical times Branch daily. ciprofloxac 1-0 Yes [id number] 500mg Take 1 [facility] in HCl 500 2-28 tablet by ity of mg tablet 00:00: mouth (two) Medical times Branch daily. metroNIDAZO 1-0 Yes [id number] 500mg Take 1 [facility] LE 500 mg 2-28 tablet by ity o f tablet 00:00: mouth (two) Medical times Branch daily. ciprofloxac 2021-0 Yes [id number] 500mg Take 1 Univers in HCl 500 2-28 tablet by [facility] mg tablet 00:00: mouth (two) Medical times Branch daily. metroNIDAZO 2021-0 Yes [id number] 500mg Take 1 [facility] LE 500 mg 2-28 tablet by [facility] f tablet 00:00: mouth (two) Medical times Branch daily. ciprofloxac 2021-0 Yes [id number] 500mg Take 1 [facility] in HCl 500 2-28 tablet by [facility] mg tablet 00:00: mouth (two) Medical times Branch daily. metroNIDAZO 2021-0 Yes [id number] 500mg Take 1 [facility] LE 500 mg 2-28 tablet by [facility] o f tablet 00:00: mouth (two) Medical times Branch daily. ciprofloxac 1-0 Yes [id number] 500mg Take 1 [facility] in HCl 500 2-28 tablet by [facility] mg tablet 00:00: mouth (two) Medical times Branch daily. metroNIDAZO 1-0 Yes [id number] 500mg Take 1 [facility] LE 500 mg 2-28 tablet by [facility] o f tablet 00:00: mouth (two) Medical times Branch daily. ciprofloxac 1-0 Yes [id number] 500mg Take 1 [facility] in HCl 500 2-28 tablet by [facility] mg tablet 00:00: mouth (two) Medical times Branch daily. metroNIDAZO 1-0 Yes [id number] 500mg Take 1 [facility] LE 500 mg 2-28 tablet by [facility] o f tablet 00:00: mouth (two) Medical times Branch daily. ciprofloxac 1-0 Yes [id number] 500mg Take 1 [facility] in HCl 500 2-28 tablet by [facility] mg tablet 00:00: mouth (two) Medical times Branch daily. metroNIDAZO 1-0 Yes [id number] 500mg Take 1 [facility] LE 500 mg 2-28 tablet by [facility] o f tablet 00:00: mouth (two) Medical times Branch daily. ciprofloxac 2021-0 Yes [id number] 500mg Take 1 [facility] in HCl 500 2-28 tablet by [facility] mg tablet 00:00: mouth (two) Medical times [facility] daily. metroNIDAZO 2021-0 Yes [id number] 500mg Take 1 [facility] LE 500 mg 2-28 tablet by [facility] o f tablet 00:00: mouth (two) Medical times [facility] daily. ciprofloxac 2021-0 Yes [id number] 500mg Take 1 [facility] in HCl 500 2-28 tablet by [facility] mg tablet 00:00: mouth (two) Medical times Branch daily. metroNIDAZO 2021-0 Yes [id number] 500mg Take 1 [facility] LE 500 mg 2-28 tablet by [facility] o f tablet 00:00: mouth (two) Medical times [facility] daily. ciprofloxac 2021-0 Yes [id number] 500mg Take 1 [facility] in HCl 500 2-28 tablet by [facility] mg tablet 00:00: mouth (two) Medical times [facility] daily. metroNIDAZO 2021-0 Yes [id number] 500mg Take 1 [facility] LE 500 mg 2-28 tablet by [facility] o f tablet 00:00: mouth (two) Medical times [facility] daily. ciprofloxac 1-0 Yes [id number] 500mg Take 1 [facility] in HCl 500 2-28 tablet by [facility] mg tablet 00:00: mouth (two) Medical times [facility] daily. metroNIDAZO 2021-0 Yes [id number] 500mg Take 1 [facility] LE 500 mg 2-28 tablet by [facility] o f tablet 00:00: mouth (two) Medical times [facility] daily. ciprofloxac 1-0 Yes [id number] 500mg Take 1 [facility] in HCl 500 2-28 tablet by [facility] mg tablet 00:00: mouth (two) Medical times [facility] daily. metroNIDAZO 2021-0 Yes [id number] 500mg Take 1 [facility] LE 500 mg 2-28 tablet by [facility] o f tablet 00:00: mouth (two) Medical times [facility] daily. ciprofloxac 2021-0 Yes [id number] 500mg Take 1 [facility] in HCl 500 2-28 tablet by [facility] of mg tablet 00:00: mouth (two) Medical times [facility] daily. metroNIDAZO 2021-0 Yes [id number] 500mg Take 1 [facility] LE 500 mg 2-28 tablet by [facility] o f tablet 00:00: mouth (two) Medical times [facility] daily. ciprofloxac 2021-0 Yes [id number] 500mg Take 1 [facility] in HCl 500 2-28 tablet by [facility] of mg tablet 00:00: mouth (two) Medical times [facility] daily. metroNIDAZO 2021-0 Yes [id number] 500mg Take 1 [facility] LE 500 mg 2-28 tablet by [facility] o f tablet 00:00: mouth (two) Medical times [facility] daily. ciprofloxac 2021-0 Yes [id number] 500mg Take 1 [facility] in HCl 500 2-28 tablet by [facility] of mg tablet 00:00: mouth (two) Medical times [facility] daily. metroNIDAZO 2021-0 Yes [id number] 500mg Take 1 [facility] LE 500 mg 2-28 tablet by [facility] o f tablet 00:00: mouth (two) Medical times [facility] daily. ciprofloxac 2021-0 Yes [id number] 500mg Take 1 [facility] in HCl 500 2-28 tablet by [facility] of mg tablet 00:00: mouth (two) Medical times [facility] daily. metroNIDAZO 2021-0 Yes [id number] 500mg Take 1 [facility] LE 500 mg 2-28 tablet by [facility] o f tablet 00:00: mouth (two) Medical times [facility] daily. ciprofloxac 2021-0 Yes [id number] 500mg Take 1 [facility] in HCl 500 2-28 tablet by [facility] mg tablet 00:00: mouth (two) Medical times [facility] daily. metroNIDAZO 2021-0 Yes [id number] 500mg Take 1 [facility] LE 500 mg 2-28 tablet by [facility] o f tablet 00:00: mouth (two) Medical times [facility] daily. ciprofloxac 2021-0 Yes [id number] 500mg Take 1 [facility] in HCl 500 2-28 tablet by [facility] of mg tablet 00:00: mouth (two) Medical times [facility] daily. metroNIDAZO 2021-0 Yes [id number] 500mg Take 1 [facility] LE 500 mg 2-28 tablet by [facility] o f tablet 00:00: mouth (two) Medical times [facility] daily. ciprofloxac 2021-0 Yes [id number] 500mg Take 1 [facility] in HCl 500 2-28 tablet by [facility] mg tablet 00:00: mouth 2 [place] 00 (two) Medical times Branch daily. metroNIDAZO 2020-0 Yes [id number] 500mg Take 1 [facility] LE 500 mg 2-28 tablet by [facility] o f tablet 00:00: mouth 2 (two) Medical times Branch daily. ciprofloxac 2020-0 Yes [id number] 500mg Take 1 [facility] in HCl 500 2-28 tablet by [facility] of mg tablet 00:00: mouth 2 (two) Medical times Branch daily. metroNIDAZO 2020-0 Yes [id number] 500mg Take 1 [facility] LE 500 mg 2-28 tablet by [facility] o f tablet 00:00: mouth 2 (two) Medical times Branch daily. traMADoL 50 2020-0 2020- No [id number] 50mg Take 1 [facility] vers mg tablet 2-12 12-08 tablet by [facility] of 00:00: 05:59 mouth [place] 00 :00 every 6 Medical (six) Branch hours as needed for Pain (scale 4-6) for up to 7 days. Indication s: acute pain gabapentin 2020-0 Yes [id number] 300mg Take 3 [facility] 100 mg 2-05 [id number] capsules [facility] capsule 00:00: by mouth [place] (three) [facility] times [facility] daily. gabapentin 2020-0 Yes [id number] 300mg Take 3 [facility] 100 mg 2-05 [id number] capsules [facility] capsule 00:00: by mouth [place] 00 (three) [facility] times [facility] daily. gabapentin 2020-0 Yes [id number] 300mg Take 3 [facility] 100 mg 2-05 [id number] capsules [facility] capsule 00:00: by mouth [place] 00 (three) [facility] times [facility] daily. gabapentin 2020-0 Yes [id number] 300mg Take 3 [facility] 100 mg 2-05 [id number] capsules [facility] capsule 00:00: by mouth [place] 00 (three) [facility] times [facility] daily. gabapentin 2020-0 Yes [id number] 300mg Take 3 [facility] 100 mg 2-05 [id number] capsules [facility] capsule 00:00: by mouth [place] 00 (three) [facility] times [facility] daily. gabapentin 2020-0 Yes [id number] 300mg Take 3 [facility] 100 mg 2-05 [id number] capsules [facility] capsule 00:00: by mouth [place] 00 (three) [facility] times [facility] daily. gabapentin 2021-0 Yes [id number] 300mg Take 3 [facility] 100 mg 2-05 [id number] capsules [facility] capsule 00:00: by mouth [place] 00 (three) [facility] times [facility] daily. gabapentin 2021-0 Yes [id number] 300mg Take 3 [facility] 100 mg 2-05 [id number] capsules [facility] capsule 00:00: by mouth [place] 00 (three) [facility] times [facility] daily. gabapentin 2021-0 Yes [id number] 300mg Take 3 [facility] 100 mg 2-05 [id number] capsules [facility] capsule 00:00: by mouth [place] 00 (three) [facility] times [facility] daily. gabapentin 202-0 Yes [id number] 300mg Take 3 [facility] 100 mg 2-05 [id number] capsules [facility] capsule 00:00: by mouth [place] 00 (three) [facility] times [facility] daily. gabapentin 202-0 Yes [id number] 300mg Take 3 [facility] 100 mg 2-05 [id number] capsules [facility] capsule 00:00: by mouth [place] 00 (three) [facility] times [facility] daily. gabapentin 2020-0 Yes [id number] 300mg Take 3 [facility] 100 mg 2-05 [id number] capsules [facility] capsule 00:00: by mouth [place] 00 (three) [facility] times [facility] daily. gabapentin 202-0 Yes [id number] 300mg Take 3 [facility] 100 mg 2-05 [id number] capsules [facility] capsule 00:00: by mouth [place] 00 (three) [facility] times [facility] daily. gabapentin 202-0 Yes [id number] 300mg Take 3 [facility] 100 mg 2-05 [id number] capsules [facility] capsule 00:00: by mouth [place] 00 (three) [facility] times [facility] daily. gabapentin 2021-0 Yes [id number] 300mg Take 3 [facility] 100 mg 2-05 [id number] capsules [facility] capsule 00:00: by mouth [place] 00 (three) [facility] times [facility] daily. gabapentin 2021-0 Yes [id number] 300mg Take 3 [facility] 100 mg 2-05 [id number] capsules [facility] capsule 00:00: by mouth [place] 00 (three) [facility] times [facility] daily. gabapentin 2021-0 Yes [id number] 300mg Take 3 [facility] 100 mg 2-05 [id number] capsules [facility] capsule 00:00: by mouth [place] 00 (three) [facility] times [facility] daily. gabapentin 2021-0 Yes [id number] 300mg Take 3 [facility] 100 mg 2-05 [id number] capsules [facility] capsule 00:00: by mouth [place] 00 (three) [facility] times [facility] daily. gabapentin 2021-0 Yes [id number] 300mg Take 3 [facility] 100 mg 2-05 [id number] capsules [facility] capsule 00:00: by mouth [place] 00 (three) [facility] times [facility] daily. gabapentin 2021-0 Yes [id number] 300mg Take 3 [facility] 100 mg 2-05 [id number] capsules [facility] capsule 00:00: by mouth [place] 00 (three) [facility] times [facility] daily. gabapentin 2021-0 Yes [id number] 300mg Take 3 [facility] 100 mg 2-05 [id number] capsules [facility] capsule 00:00: by mouth [place] 00 (three) [facility] times [facility] daily. gabapentin 2021-0 Yes [id number] 300mg Take 3 [facility] 100 mg 2-05 [id number] capsules [facility] capsule 00:00: by mouth [place] 00 (three) [facility] times [facility] daily. gabapentin 2021-0 Yes [id number] 300mg Take 3 [facility] 100 mg 2-05 [id number] capsules [facility] capsule 00:00: by mouth [place] 00 (three) [facility] times [facility] daily. gabapentin 2021-0 Yes [id number] 300mg Take 3 [facility] 100 mg 2-05 [id number] capsules [facility] capsule 00:00: by mouth [place] 00 (three) [facility] times [facility] daily. gabapentin 2021-0 Yes [id number] 300mg Take 3 [facility] 100 mg 2-05 [id number] capsules [facility] capsule 00:00: by mouth [place] 00 (three) [facility] times [facility] daily. gabapentin 2021-0 Yes [id number] 300mg Take 3 [facility] 100 mg 2-05 [id number] capsules [facility] capsule 00:00: by mouth [place] 00 (three) [facility] times [facility] daily. gabapentin 2021-0 Yes [id number] 300mg Take 3 [facility] 100 mg 2-05 [id number] capsules [facility] capsule 00:00: by mouth [place] 00 (three) [facility] times [facility] daily. gabapentin 2021-0 Yes [id number] 300mg Take 3 [facility] 100 mg 2-05 [id number] capsules [facility] capsule 00:00: by mouth [place] 00 (three) [facility] times [facility] daily. gabapentin 2021-0 Yes [id number] 300mg Take 3 [facility] 100 mg 2-05 [id number] capsules [facility] capsule 00:00: by mouth [place] 00 (three) [facility] times [facility] daily. gabapentin 2021-0 Yes [id number] 300mg Take 3 [facility] 100 mg 2-05 [id number] capsules [facility] capsule 00:00: by mouth 3 [place] 00 (three) Medical times [facility] daily. gabapentin 2021-0 Yes [id number] 300mg Take 3 [facility] 100 mg 2-05 [id number] capsules [facility] of capsule 00:00: by mouth 3 [place] 00 (three) Medical times [facility] daily. gabapentin 2021-0 Yes [id number] 300mg Take 3 [facility] 100 mg 1-05 [id number] capsules [facility] of capsule 00:00: by mouth 3 [place] 00 (three) Medical times [facility] daily. gabapentin 2021-0 Yes [id number] 300mg Take 3 [facility] 100 mg 1-05 [id number] capsules [facility] capsule 00:00: by mouth 3 [place] 00 (three) Medical times [facility] daily. gabapentin 2021-0 Yes [id number] 300mg Take 3 [facility] 100 mg 1-05 [id number] capsules [facility] of capsule 00:00: by mouth 3 [place] 00 (three) Medical times [facility] daily. gabapentin 2021-0 Yes [id number] 300mg Take 3 [facility] 100 mg 1-05 [id number] capsules [facility] capsule 00:00: by mouth 3 [place] 00 (three) Medical times [facility] daily. gabapentin 2021-0 Yes [id number] 300mg Take 3 [facility] 100 mg 1-05 [id number] capsules [facility] of capsule 00:00: by mouth 3 [place] 00 (three) Medical times [facility] daily. gabapentin 2021-0 Yes [id number] 300mg Take 3 [facility] 100 mg 1-05 [id number] capsules [facility] of capsule 00:00: by mouth 3 [place] 00 (three) Medical times [facility] daily. gabapentin 2021-0 Yes [id number] 300mg Take 3 [facility] 100 mg 1-05 [id number] capsules [facility] capsule 00:00: by mouth 3 [place] 00 (three) Medical times [facility] daily. gabapentin 2021-0 Yes [id number] 300mg Take 3 [facility] 100 mg 1-05 [id number] capsules [facility] capsule 00:00: by mouth 3 [place] 00 (three) Medical times [facility] daily. gabapentin 2020-0 Yes [id number] 300mg Take 3 [facility] 100 mg 1-05 [id number] capsules [facility] capsule 00:00: by mouth 3 [place] 00 (three) Medical times [facility] daily. gabapentin 2020-0 Yes [id number] 300mg Take 3 [facility] 100 mg 1-05 [id number] capsules [facility] capsule 00:00: by mouth 3 [place] 00 (three) Medical times [facility] daily. gabapentin 2020-0 Yes [id number] 300mg Take 3 [facility] 100 mg 1-05 [id number] capsules [facility] capsule 00:00: by mouth 3 [place] 00 (three) Medical times [facility] daily. gabapentin 2020-0 Yes [id number] 300mg Take 3 [facility] 100 mg 1-05 [id number] capsules [facility] capsule 00:00: by mouth 3 [place] 00 (three) Medical times [facility] daily. gabapentin 2020-0 Yes [id number] 300mg Take 3 [facility] 100 mg 1-05 [id number] capsules [facility] capsule 00:00: by mouth 3 [place] 00 (three) Medical times [facility] daily. gabapentin 2020-0 2021- No [id number] 300mg Take 3 [facility] 100 mg 1-05 02-05 [id number] capsules [facility] of capsule 00:00: 00:00 by mouth 3 [place] 00 :00 (three) Medical times Branch daily. DEXILANT 60 2020-1 Yes [id number] 60mg TAKE 1 [facility] mg capsule 2-22 CAPSULE BY ity of 00:00: MOUTH [place] 00 DAILY. Medical STOP Branch ESOMEPRAZO LE. DEXILANT 60 2020-1 Yes [id number] 60mg TAKE 1 [facility] mg capsule 2-22 CAPSULE BY ity of 00:00: MOUTH [place] 00 DAILY. Medical STOP Branch ESOMEPRAZO LE. DEXILANT 60 2020-1 Yes [id number] 60mg TAKE 1 [facility] mg capsule 2-22 CAPSULE BY ity of 00:00: MOUTH [place] 00 DAILY. Medical STOP Branch ESOMEPRAZO LE. DEXILANT 60 2020-1 Yes [id number] 60mg TAKE 1 [facility] mg capsule 2-22 CAPSULE BY ity of 00:00: MOUTH [place] 00 DAILY. Medical STOP Branch ESOMEPRAZO LE. DEXILANT 60 2020-1 Yes [id number] 60mg TAKE 1 [facility] mg capsule 2-22 CAPSULE BY ity of 00:00: MOUTH [place] 00 DAILY. Medical STOP Branch ESOMEPRAZO LE. DEXILANT 60 2020- Yes [id number] 60mg TAKE 1 [facility] mg capsule 2-22 CAPSULE BY ity of 00:00: MOUTH [place] 00 DAILY. Medical STOP Branch ESOMEPRAZO LE. DEXILANT 60 2019- Yes [id number] 60mg TAKE 1 [facility] mg capsule 2-22 CAPSULE BY ity of 00:00: MOUTH [place] 00 DAILY. Medical STOP Branch ESOMEPRAZO LE. DEXILANT 60 2019- Yes [id number] 60mg TAKE 1 [facility] mg capsule 2-22 CAPSULE BY ity of 00:00: MOUTH [place] 00 DAILY. Medical STOP Branch ESOMEPRAZO LE. DEXILANT 60 2019- Yes [id number] 60mg TAKE 1 [facility] mg capsule 2-22 CAPSULE BY ity of 00:00: MOUTH [place] 00 DAILY. Medical STOP Branch ESOMEPRAZO LE. DEXILANT 60 2019- Yes [id number] 60mg TAKE 1 [facility] mg capsule 2-22 CAPSULE BY ity of 00:00: MOUTH [place] 00 DAILY. Medical STOP Branch ESOMEPRAZO LE. DEXILANT 60 2019- Yes [id number] 60mg TAKE 1 [facility] mg capsule 2-22 CAPSULE BY ity of 00:00: MOUTH [place] 00 DAILY. Medical STOP Branch ESOMEPRAZO LE. DEXILANT 60 2019- Yes [id number] 60mg TAKE 1 [facility] mg capsule 2-22 CAPSULE BY ity of 00:00: MOUTH [place] 00 DAILY. Medical STOP Branch ESOMEPRAZO LE. DEXILANT 60 2019- Yes [id number] 60mg TAKE 1 [facility] mg capsule 2-22 CAPSULE BY ity of 00:00: MOUTH [place] 00 DAILY. Medical STOP Branch ESOMEPRAZO LE. DEXILANT 60 2019- Yes [id number] 60mg TAKE 1 [facility] mg capsule 2-22 CAPSULE BY ity of 00:00: MOUTH [place] 00 DAILY. Medical STOP Branch ESOMEPRAZO LE. DEXILANT 60 2019- Yes [id number] 60mg TAKE 1 [facility] mg capsule 2-22 CAPSULE BY ity of 00:00: MOUTH [place] 00 DAILY. Medical STOP Branch ESOMEPRAZO LE. DEXILANT 60 2020- Yes [id number] 60mg TAKE 1 [facility] mg capsule 2-22 CAPSULE BY ity of 00:00: MOUTH [place] 00 DAILY. Medical STOP Branch ESOMEPRAZO LE. DEXILANT 60 2019- Yes [id number] 60mg TAKE 1 [facility] mg capsule 2-22 CAPSULE BY ity of 00:00: MOUTH [place] 00 DAILY. Medical STOP Branch ESOMEPRAZO LE. DEXILANT 60 2019- Yes [id number] 60mg TAKE 1 [facility] mg capsule 2-22 CAPSULE BY ity of 00:00: MOUTH [place] 00 DAILY. Medical STOP Branch ESOMEPRAZO LE. DEXILANT 60 2019-09 Yes [id number] 60mg TAKE 1 [facility] mg capsule 2-22 CAPSULE BY ity of 00:00: MOUTH [place] 00 DAILY. Medical STOP Branch ESOMEPRAZO LE. DEXILANT 60 2019-09 Yes [id number] 60mg TAKE 1 [facility] mg capsule 2-22 CAPSULE BY ity of 00:00: MOUTH [place] 00 DAILY. Medical STOP Branch ESOMEPRAZO LE. DEXILANT 60 2019-09 Yes [id number] 60mg TAKE 1 [facility] mg capsule 2-22 CAPSULE BY ity of 00:00: MOUTH [place] 00 DAILY. Medical STOP Branch ESOMEPRAZO LE. DEXILANT 60 2019-09 Yes [id number] 60mg TAKE 1 [facility] mg capsule 2-22 CAPSULE BY ity of 00:00: MOUTH [place] 00 DAILY. Medical STOP Branch ESOMEPRAZO LE. DEXILANT 60 2019-09 Yes [id number] 60mg TAKE 1 [facility] mg capsule 2-22 CAPSULE BY ity of 00:00: MOUTH [place] 00 DAILY. Medical STOP Branch ESOMEPRAZO LE. DEXILANT 60 2019-09 Yes [id number] 60mg TAKE 1 [facility] mg capsule 2-22 CAPSULE BY ity of 00:00: MOUTH [place] 00 DAILY. Medical STOP Branch ESOMEPRAZO LE. DEXILANT 60 2019-09 Yes [id number] 60mg TAKE 1 [facility] mg capsule 2-22 CAPSULE BY ity of 00:00: MOUTH [place] 00 DAILY. Medical STOP Branch ESOMEPRAZO LE. DEXILANT 60 2019-09 Yes [id number] 60mg TAKE 1 [facility] mg capsule 2-22 CAPSULE BY ity of 00:00: MOUTH [place] 00 DAILY. Medical STOP Branch ESOMEPRAZO LE. DEXILANT 60 2019- Yes [id number] 60mg TAKE 1 [facility] mg capsule 2-22 CAPSULE BY ity of 00:00: MOUTH [place] 00 DAILY. Medical STOP Branch ESOMEPRAZO LE. DEXILANT 60 2019-09 Yes [id number] 60mg TAKE 1 [facility] mg capsule 2-22 CAPSULE BY ity of 00:00: MOUTH [place] 00 DAILY. Medical STOP Branch ESOMEPRAZO LE. DEXILANT 60 2019-09 Yes [id number] 60mg TAKE 1 [facility] mg capsule 2-22 CAPSULE BY ity of 00:00: MOUTH [place] 00 DAILY. Medical STOP Branch ESOMEPRAZO LE. DEXILANT 60 2019-09 Yes [id number] 60mg TAKE 1 [facility] mg capsule 2-22 CAPSULE BY ity of 00:00: MOUTH [place] 00 DAILY. Medical STOP Branch ESOMEPRAZO LE. DEXILANT 60 2019-09 Yes [id number] 60mg TAKE 1 [facility] mg capsule 2-22 CAPSULE BY ity of 00:00: MOUTH [place] 00 DAILY. Medical STOP Branch ESOMEPRAZO LE. DEXILANT 60 2019-09 Yes [id number] 60mg TAKE 1 [facility] mg capsule 2-22 CAPSULE BY ity of 00:00: MOUTH [place] 00 DAILY. Medical STOP Branch ESOMEPRAZO LE. DEXILANT 60 2019-09 Yes [id number] 60mg TAKE 1 [facility] mg capsule 2-22 CAPSULE BY ity of 00:00: MOUTH [place] 00 DAILY. Medical STOP Branch ESOMEPRAZO LE. DEXILANT 60 2019-09 Yes [id number] 60mg TAKE 1 [facility] mg capsule 2-22 CAPSULE BY ity of 00:00: MOUTH [place] 00 DAILY. Medical STOP Branch ESOMEPRAZO LE. DEXILANT 60 2019-09 Yes [id number] 60mg TAKE 1 [facility] mg capsule 2-22 CAPSULE BY ity of 00:00: MOUTH [place] 00 DAILY. Medical STOP Branch ESOMEPRAZO LE. DEXILANT 60 2019-09 Yes [id number] 60mg TAKE 1 [facility] mg capsule 2-22 CAPSULE BY ity of 00:00: MOUTH [place] 00 DAILY. Medical STOP Branch ESOMEPRAZO LE. DEXILANT 60 2019-09 Yes [id number] 60mg TAKE 1 [facility] mg capsule 2-22 CAPSULE BY ity of 00:00: MOUTH [place] 00 DAILY. Medical STOP Branch ESOMEPRAZO LE. DEXILANT 60 2019-09- No [id number] 60mg TAKE 1 [facility] mg capsule 2-22 08-18 CAPSULE BY it y of 00:00: 00:00 MOUTH [place] 00 :00 DAILY. Medical STOP Branch ESOMEPRAZO LE. thiamine 2019-09 Yes [id number] 100mg Take 1 [facility] 100 mg 2-16 tablet by [facility] of tablet 00:00: mouth [place] 00 daily. Medical Branch Ferrous 2020- Yes [id number] 142mg Take 1 [facility] vers Sulfate 2-16 tablet by ity of (SLOW FE) 00:00: mouth [place] 142 mg (45 00 daily. Medical mg iron) Branch tablet thiamine 2019-09 Yes [id number] 100mg Take 1 [facility] n[facility] 100 mg 2-16 tablet by ity of tablet 00:00: mouth [place] 00 daily. Medical Branch Ferrous 2020- Yes [id number] 142mg Take 1 [facility] vers Sulfate 2-16 tablet by ity of (SLOW FE) 00:00: mouth [place] 142 mg (45 00 daily. Medical mg iron) Branch tablet thiamine 2019-09 Yes [id number] 100mg Take 1 [facility] nivers 100 mg 2-16 tablet by ity of tablet 00:00: mouth [place] 00 daily. Medical Branch Ferrous 2019- Yes [id number] 142mg Take 1 [facility] vers Sulfate 2-16 tablet by ity of (SLOW FE) 00:00: mouth [place] 142 mg (45 00 daily. Medical mg iron) Branch tablet thiamine 2019-09 Yes [id number] 100mg Take 1 [facility] nivers 100 mg 2-16 tablet by ity of tablet 00:00: mouth [place] 00 daily. Medical Branch Ferrous 2019- Yes [id number] 142mg Take 1 [facility] vers Sulfate 2-16 tablet by ity of (SLOW FE) 00:00: mouth [place] 142 mg (45 00 daily. Medical mg iron) Branch tablet thiamine 2019-09 Yes [id number] 100mg Take 1 [facility] nivers 100 mg 2-16 tablet by ity of tablet 00:00: mouth [place] 00 daily. Medical Branch Ferrous 2020- Yes [id number] 142mg Take 1 [facility] vers Sulfate 2-16 tablet by ity of (SLOW FE) 00:00: mouth [place] 142 mg (45 00 daily. Medical mg iron) Branch tablet thiamine 2019- Yes [id number] 100mg Take 1 [facility] nivers 100 mg 2-16 tablet by ity of tablet 00:00: mouth [place] 00 daily. Medical Branch Ferrous 2020- Yes [id number] 142mg Take 1 [facility] vers Sulfate 2-16 tablet by ity of (SLOW FE) 00:00: mouth [place] 142 mg (45 00 daily. Medical mg iron) Branch tablet thiamine 2019- Yes [id number] 100mg Take 1 [facility] nivers 100 mg 2-16 tablet by ity of tablet 00:00: mouth [place] 00 daily. Medical Branch Ferrous 2020- Yes [id number] 142mg Take 1 [facility] vers Sulfate 2-16 tablet by ity of (SLOW FE) 00:00: mouth [place] 142 mg (45 00 daily. Medical mg iron) Branch tablet thiamine 2019-09 Yes [id number] 100mg Take 1 [facility] nivers 100 mg 2-16 tablet by ity of tablet 00:00: mouth [place] 00 daily. Medical Branch Ferrous 2020- Yes [id number] 142mg Take 1 [facility] vers Sulfate 2-16 tablet by ity of (SLOW FE) 00:00: mouth [place] 142 mg (45 00 daily. Medical mg iron) Branch tablet thiamine 2019-09 Yes [id number] 100mg Take 1 [facility] nivers 100 mg 2-16 tablet by ity of tablet 00:00: mouth [place] 00 daily. Medical Branch Ferrous 2019- Yes [id number] 142mg Take 1 [facility] vers Sulfate 2-16 tablet by ity of (SLOW FE) 00:00: mouth [place] 142 mg (45 00 daily. Medical mg iron) Branch tablet thiamine 2019-09 Yes [id number] 100mg Take 1 [facility] nivers 100 mg 2-16 tablet by ity of tablet 00:00: mouth [place] 00 daily. Medical Branch Ferrous 2020- Yes [id number] 142mg Take 1 [facility] vers Sulfate 2-16 tablet by ity of (SLOW FE) 00:00: mouth [place] 142 mg (45 00 daily. Medical mg iron) Branch tablet thiamine 2019- Yes [id number] 100mg Take 1 [facility] nivers 100 mg 2-16 tablet by ity of tablet 00:00: mouth [place] 00 daily. Medical Branch Ferrous 2020- Yes [id number] 142mg Take 1 [facility] vers Sulfate 2-16 tablet by ity of (SLOW FE) 00:00: mouth [place] 142 mg (45 00 daily. Medical mg iron) Branch tablet thiamine 2019- Yes [id number] 100mg Take 1 [facility] nivers 100 mg 2-16 tablet by ity of tablet 00:00: mouth [place] 00 daily. Medical Branch Ferrous 2020- Yes [id number] 142mg Take 1 [facility] vers Sulfate 2-16 tablet by ity of (SLOW FE) 00:00: mouth [place] 142 mg (45 00 daily. Medical mg iron) Branch tablet thiamine 2019- Yes [id number] 100mg Take 1 [facility] n[facility] 100 mg 2-16 tablet by ity of tablet 00:00: mouth [place] 00 daily. Medical Branch Ferrous 2020- Yes [id number] 142mg Take 1 [facility] vers Sulfate 2-16 tablet by ity of (SLOW FE) 00:00: mouth [place] 142 mg (45 00 daily. Medical mg iron) Branch tablet thiamine 2019-09 Yes [id number] 100mg Take 1 [facility] n[facility] 100 mg 2-16 tablet by ity of tablet 00:00: mouth [place] 00 daily. Medical Branch Ferrous 2020- Yes [id number] 142mg Take 1 [facility] vers Sulfate 2-16 tablet by ity of (SLOW FE) 00:00: mouth [place] 142 mg (45 00 daily. Medical mg iron) Branch tablet thiamine 2019-09 Yes [id number] 100mg Take 1 [facility] nivers 100 mg 2-16 tablet by ity of tablet 00:00: mouth [place] 00 daily. Medical Branch Ferrous 2019- Yes [id number] 142mg Take 1 [facility] vers Sulfate 2-16 tablet by ity of (SLOW FE) 00:00: mouth [place] 142 mg (45 00 daily. Medical mg iron) Branch tablet thiamine 2019-09 Yes [id number] 100mg Take 1 [facility] nivers 100 mg 2-16 tablet by ity of tablet 00:00: mouth [place] 00 daily. Medical Branch Ferrous 2019- Yes [id number] 142mg Take 1 [facility] vers Sulfate 2-16 tablet by ity of (SLOW FE) 00:00: mouth [place] 142 mg (45 00 daily. Medical mg iron) Branch tablet thiamine 2019-09 Yes [id number] 100mg Take 1 [facility] n[facility] 100 mg 2-16 tablet by ity of tablet 00:00: mouth [place] 00 daily. Medical Branch Ferrous 2020- Yes [id number] 142mg Take 1 [facility] vers Sulfate 2-16 tablet by ity of (SLOW FE) 00:00: mouth [place] 142 mg (45 00 daily. Medical mg iron) Branch tablet thiamine 2019- Yes [id number] 100mg Take 1 [facility] n[facility] 100 mg 2-16 tablet by ity of tablet 00:00: mouth [place] 00 daily. Medical Branch Ferrous 2020- Yes [id number] 142mg Take 1 [facility] vers Sulfate 2-16 tablet by ity of (SLOW FE) 00:00: mouth [place] 142 mg (45 00 daily. Medical mg iron) Branch tablet thiamine 2019-09 Yes [id number] 100mg Take 1 [facility] n[facility] 100 mg 2-16 tablet by ity of tablet 00:00: mouth [place] 00 daily. Medical Branch Ferrous 2020- Yes [id number] 142mg Take 1 [facility] Sulfate 2-16 tablet by ity of (SLOW FE) 00:00: mouth [place] 142 mg (45 00 daily. Medical mg iron) Branch tablet thiamine 2019-09 Yes [id number] 100mg Take 1 [facility] nivers 100 mg 2-16 tablet by ity of tablet 00:00: mouth [place] 00 daily. Medical Branch Ferrous 2020- Yes [id number] 142mg Take 1 [facility] Sulfate 2-16 tablet by [facility] of (SLOW FE) 00:00: mouth [place] 142 mg (45 00 daily. Medical mg iron) Branch tablet thiamine 2019-09 Yes [id number] 100mg Take 1 [facility] 100 mg 2-16 tablet by [facility] of tablet 00:00: mouth [place] 00 daily. Medical Branch Ferrous 2020- Yes [id number] 142mg Take 1 [facility] Sulfate 2-16 tablet by [facility] of (SLOW FE) 00:00: mouth [place] 142 mg (45 00 daily. Medical mg iron) Branch tablet thiamine 2019-09 Yes [id number] 100mg Take 1 [facility] 100 mg 2-16 tablet by [facility] of tablet 00:00: mouth [place] 00 daily. Medical Branch Ferrous 2019- Yes [id number] 142mg Take 1 [facility] Sulfate 2-16 tablet by [facility] of (SLOW FE) 00:00: mouth [place] 142 mg (45 00 daily. Medical mg iron) Branch tablet thiamine 2019-09 Yes [id number] 100mg Take 1 [facility] 100 mg 2-16 tablet by [facility] of tablet 00:00: mouth [place] 00 daily. Medical Branch Ferrous 2020- Yes [id number] 142mg Take 1 [facility] Sulfate 2-16 tablet by [facility] of (SLOW FE) 00:00: mouth [place] 142 mg (45 00 daily. Medical mg iron) Branch tablet thiamine 2019- Yes [id number] 100mg Take 1 [facility] 100 mg 2-16 tablet by [facility] of tablet 00:00: mouth [place] 00 daily. Medical Branch Ferrous 2020- Yes [id number] 142mg Take 1 [facility] Sulfate 2-16 tablet by [facility] of (SLOW FE) 00:00: mouth [place] 142 mg (45 00 daily. Medical mg iron) Branch tablet thiamine 2019-09 Yes [id number] 100mg Take 1 [facility] 100 mg 2-16 tablet by [facility] of tablet 00:00: mouth [place] 00 daily. Medical Branch Ferrous 2020- Yes [id number] 142mg Take 1 [facility] Sulfate 2-16 tablet by [facility] of (SLOW FE) 00:00: mouth [place] 142 mg (45 00 daily. Medical mg iron) Branch tablet thiamine 2019-09 Yes [id number] 100mg Take 1 [facility] 100 mg 2-16 tablet by [facility] of tablet 00:00: mouth [place] 00 daily. Medical Branch Ferrous 2020- Yes [id number] 142mg Take 1 [facility] Sulfate 2-16 tablet by [facility] of (SLOW FE) 00:00: mouth [place] 142 mg (45 00 daily. Medical mg iron) Branch tablet thiamine 2019-09 Yes [id number] 100mg Take 1 [facility] 100 mg 2-16 tablet by [facility] of tablet 00:00: mouth [place] 00 daily. Medical Branch Ferrous 2019- Yes [id number] 142mg Take 1 [facility] Sulfate 2-16 tablet by [facility] of (SLOW FE) 00:00: mouth [place] 142 mg (45 00 daily. Medical mg iron) Branch tablet thiamine 2019-09 Yes [id number] 100mg Take 1 [facility] 100 mg 2-16 tablet by [facility] of tablet 00:00: mouth [place] 00 daily. Medical Branch Ferrous 2019-09 Yes [id number] 142mg Take 1 [facility] Sulfate 2-16 tablet by [facility] of (SLOW FE) 00:00: mouth [place] 142 mg (45 00 daily. Medical mg iron) Branch tablet thiamine 2019-09 Yes [id number] 100mg Take 1 [facility] 100 mg 2-16 tablet by [facility] of tablet 00:00: mouth [place] 00 daily. Medical Branch Ferrous 2019- Yes [id number] 142mg Take 1 [facility] Sulfate 2-16 tablet by [facility] of (SLOW FE) 00:00: mouth [place] 142 mg (45 00 daily. Medical mg iron) Branch tablet thiamine 2019-09 Yes [id number] 100mg Take 1 [facility] 100 mg 2-16 tablet by [facility] of tablet 00:00: mouth [place] 00 daily. Medical Branch Ferrous 2020- Yes [id number] 142mg Take 1 [facility] Sulfate 2-16 tablet by [facility] of (SLOW FE) 00:00: mouth [place] 142 mg (45 00 daily. Medical mg iron) Branch tablet thiamine 2019-09 Yes [id number] 100mg Take 1 [facility] 100 mg 2-16 tablet by [facility] of tablet 00:00: mouth [place] 00 daily. Medical Branch Ferrous 2020- Yes [id number] 142mg Take 1 [facility] Sulfate 2-16 tablet by [facility] of (SLOW FE) 00:00: mouth [place] 142 mg (45 00 daily. Medical mg iron) Branch tablet thiamine 2019-09 Yes [id number] 100mg Take 1 [facility] 100 mg 2-16 tablet by [facility] of tablet 00:00: mouth [place] 00 daily. Medical Branch Ferrous 2020- Yes [id number] 142mg Take 1 [facility] Sulfate 2-16 tablet by [facility] of (SLOW FE) 00:00: mouth [place] 142 mg (45 00 daily. Medical mg iron) Branch tablet thiamine 2019-09 Yes [id number] 100mg Take 1 [facility] 100 mg 2-16 tablet by [facility] of tablet 00:00: mouth [place] 00 daily. Medical Branch Ferrous 2020- Yes [id number] 142mg Take 1 [facility] Sulfate 2-16 tablet by it[facility] of (SLOW FE) 00:00: mouth [place] 142 mg (45 00 daily. Medical mg iron) Branch tablet thiamine 2019-09 Yes [id number] 100mg Take 1 [facility] 100 mg 2-16 tablet by [facility] of tablet 00:00: mouth [place] 00 daily. Medical Branch Ferrous 2020- Yes [id number] 142mg Take 1 [facility] Sulfate 2-16 tablet by [facility] of (SLOW FE) 00:00: mouth [place] 142 mg (45 00 daily. Medical mg iron) Branch tablet thiamine 2019-09 Yes [id number] 100mg Take 1 [facility] 100 mg 2-16 tablet by [facility] of tablet 00:00: mouth [place] 00 daily. Medical Branch Ferrous 2020- Yes [id number] 142mg Take 1 [facility] Sulfate 2-16 tablet by it[facility] of (SLOW FE) 00:00: mouth [place] 142 mg (45 00 daily. Medical mg iron) Branch tablet thiamine 2019- Yes [id number] 100mg Take 1 [facility] 100 mg 2-16 tablet by [facility] of tablet 00:00: mouth [place] 00 daily. Medical Branch Ferrous 2020- Yes [id number] 142mg Take 1 [facility] Sulfate 2-16 tablet by [facility] of (SLOW FE) 00:00: mouth [place] 142 mg (45 00 daily. Medical mg iron) Branch tablet thiamine 2019-09 Yes [id number] 100mg Take 1 [facility] 100 mg 2-16 tablet by [facility] of tablet 00:00: mouth [place] 00 daily. Medical Branch Ferrous 2020- Yes [id number] 142mg Take 1 [facility] Sulfate 2-16 tablet by [facility] of (SLOW FE) 00:00: mouth [place] 142 mg (45 00 daily. Medical mg iron) Branch tablet thiamine 2019-09 Yes [id number] 100mg Take 1 [facility] 100 mg 2-16 tablet by [facility] of tablet 00:00: mouth [place] 00 daily. Medical Branch Ferrous 2019- Yes [id number] 142mg Take 1 [facility] Sulfate 2-16 tablet by [facility] of (SLOW FE) 00:00: mouth [place] 142 mg (45 00 daily. Medical mg iron) Branch tablet thiamine 2019-09 Yes [id number] 100mg Take 1 [facility] 100 mg 2-16 tablet by [facility] of tablet 00:00: mouth [place] 00 daily. Medical Branch Ferrous 2019- Yes [id number] 142mg Take 1 [facility] Sulfate 2-16 tablet by it[facility] of (SLOW FE) 00:00: mouth [place] 142 mg (45 00 daily. Medical mg iron) Branch tablet thiamine 2019-09 Yes [id number] 100mg Take 1 [facility] 100 mg 2-16 tablet by it[facility] of tablet 00:00: mouth [place] 00 daily. Medical Branch Ferrous 2020- Yes [id number] 142mg Take 1 [facility] Sulfate 2-16 tablet by it[facility] of (SLOW FE) 00:00: mouth [place] 142 mg (45 00 daily. Medical mg iron) Branch tablet thiamine 2019-09 Yes [id number] 100mg Take 1 [facility] 100 mg 2-16 tablet by [facility] of tablet 00:00: mouth [place] 00 daily. Medical Branch Ferrous 2020- Yes [id number] 142mg Take 1 [facility] Sulfate 2-16 tablet by [facility] of (SLOW FE) 00:00: mouth [place] 142 mg (45 00 daily. Medical mg iron) Branch tablet thiamine 2019- Yes [id number] 100mg Take 1 [facility] 100 mg 2-16 tablet by [facility] of tablet 00:00: mouth [place] 00 daily. Medical Branch Ferrous 2020- Yes [id number] 142mg Take 1 [facility] Sulfate 2-16 tablet by [facility] of (SLOW FE) 00:00: mouth [place] 142 mg (45 00 daily. Medical mg iron) Branch tablet thiamine 2019-09 Yes [id number] 100mg Take 1 [facility] 100 mg 2-16 tablet by [facility] of tablet 00:00: mouth [place] 00 daily. Medical Branch Ferrous 2019-09 Yes [id number] 142mg Take 1 [facility] vers Sulfate 2-16 tablet by it[facility] of (SLOW FE) 00:00: mouth [place] 142 mg (45 00 daily. Medical mg iron) Branch tablet thiamine 2019-09 Yes [id number] 100mg Take 1 [facility] 100 mg 2-16 tablet by it[facility] of tablet 00:00: mouth [place] 00 daily. Medical Branch Ferrous 2019-09 Yes [id number] 142mg Take 1 [facility] Sulfate 2-16 tablet by it[facility] of (SLOW FE) 00:00: mouth [place] 142 mg (45 00 daily. Medical mg iron) Branch tablet thiamine 2019-09 Yes [id number] 100mg Take 1 [facility] 100 mg 2-16 tablet by it[facility] of tablet 00:00: mouth [place] 00 daily. Medical Branch Ferrous 2019-09 Yes [id number] 142mg Take 1 [facility] vers Sulfate 2-16 tablet by it[facility] of (SLOW FE) 00:00: mouth [place] 142 mg (45 00 daily. Medical mg iron) Branch tablet thiamine 2019-09 Yes [id number] 100mg Take 1 [facility] 100 mg 2-16 tablet by [facility] of tablet 00:00: mouth [place] 00 daily. Medical Branch Ferrous 2019-09 Yes [id number] 142mg Take 1 [facility] vers Sulfate 2-16 tablet by ity of (SLOW FE) 00:00: mouth [place] 142 mg (45 00 daily. Medical mg iron) Branch tablet gabapentin 2019-09 2020- No 100mg 100 mg, [facility] [place] (NEURONTIN) 2-15 12-15 Oral, it[facility] of capsule 100 05:30: 04:36 ONCE, 1 [place] :[place] dose, [facility] 08/30/20 Branch at 2330, Routine CLOPIDOGREL 2019- Yes [id number] TAKE 1 [facility] 75 mg 2-15 [id number] TABLET BY ity of tablet 00:00: MOUTH [place] 00 EVERY DAY Medical Branch CLOPIDOGREL 2019- Yes [id number] TAKE 1 [facility] 75 mg 2-15 [id number] TABLET BY ity of tablet 00:00: MOUTH [place] 00 EVERY DAY Medical Branch PRAVASTATIN 2019- Yes [id number] 10mg TAKE 1 [facility] 10 mg 2-15 [id number] TABLET BY ity of tablet 00:00: MOUTH [place] 00 EVERY Medical OTHER DAY Branch CLOPIDOGREL 2020-1 Yes [id number] TAKE 1 [facility] 75 mg 2-15 [id number] TABLET BY ity of tablet 00:00: MOUTH [place] 00 EVERY DAY Medical Branch PRAVASTATIN 2020-1 Yes [id number] 10mg TAKE 1 [facility] 10 mg 2-15 [id number] TABLET BY ity of tablet 00:00: MOUTH [place] 00 EVERY Medical OTHER DAY Branch CLOPIDOGREL 2020-1 Yes [id number] TAKE 1 [facility] 75 mg 2-15 [id number] TABLET BY it[facility] of tablet 00:00: MOUTH [place] 00 EVERY DAY Medical Branch PRAVASTATIN 2020-1 Yes [id number] 10mg TAKE 1 [facility] 10 mg 2-15 [id number] TABLET BY it[facility] of tablet 00:00: MOUTH [place] 00 EVERY Medical OTHER DAY Branch CLOPIDOGREL 2020-1 Yes [id number] TAKE 1 [facility] 75 mg 2-15 [id number] TABLET BY it[facility] of tablet 00:00: MOUTH [place] 00 EVERY DAY Medical Branch PRAVASTATIN 2020-1 Yes [id number] 10mg TAKE 1 [facility] 10 mg 2-15 [id number] TABLET BY ity of tablet 00:00: MOUTH [place] 00 EVERY Medical OTHER DAY Branch CLOPIDOGREL 2020-1 Yes [id number] TAKE 1 [facility] 75 mg 2-15 [id number] TABLET BY ity of tablet 00:00: MOUTH [place] 00 EVERY DAY Medical Branch PRAVASTATIN 2020-1 Yes [id number] 10mg TAKE 1 [facility] 10 mg 2-15 [id number] TABLET BY ity of tablet 00:00: MOUTH [place] 00 EVERY Medical OTHER DAY Branch CLOPIDOGREL 2020-1 Yes [id number] TAKE 1 [facility] 75 mg 2-15 [id number] TABLET BY ity of tablet 00:00: MOUTH [place] 00 EVERY DAY Medical Branch PRAVASTATIN 2020-1 Yes [id number] 10mg TAKE 1 [facility] 10 mg 2-15 [id number] TABLET BY ity of tablet 00:00: MOUTH [place] 00 EVERY Medical OTHER DAY Branch CLOPIDOGREL 2020-1 Yes [id number] TAKE 1 [facility] 75 mg 2-15 [id number] TABLET BY ity of tablet 00:00: MOUTH [place] 00 EVERY DAY Medical Branch PRAVASTATIN 2020-1 Yes [id number] 10mg TAKE 1 [facility] 10 mg 2-15 [id number] TABLET BY ity of tablet 00:00: MOUTH [place] 00 EVERY Medical OTHER DAY Branch CLOPIDOGREL 2020-1 Yes [id number] TAKE 1 [facility] 75 mg 2-15 [id number] TABLET BY ity of tablet 00:00: MOUTH [place] 00 EVERY DAY Medical Branch PRAVASTATIN 2020-1 Yes [id number] 10mg TAKE 1 [facility] 10 mg 2-15 [id number] TABLET BY ity of tablet 00:00: MOUTH [place] 00 EVERY Medical OTHER DAY Branch CLOPIDOGREL 2020-1 Yes [id number] TAKE 1 [facility] 75 mg 2-15 [id number] TABLET BY ity of tablet 00:00: MOUTH [place] 00 EVERY DAY Medical Branch PRAVASTATIN 2020-1 Yes [id number] 10mg TAKE 1 [facility] 10 mg 2-15 [id number] TABLET BY ity of tablet 00:00: MOUTH [place] 00 EVERY Medical OTHER DAY Branch CLOPIDOGREL 2020-1 Yes [id number] TAKE 1 [facility] 75 mg 2-15 [id number] TABLET BY ity of tablet 00:00: MOUTH [place] 00 EVERY DAY Medical Branch PRAVASTATIN 2020-1 Yes [id number] 10mg TAKE 1 [facility] 10 mg 2-15 [id number] TABLET BY ity of tablet 00:00: MOUTH [place] 00 EVERY Medical OTHER DAY Branch CLOPIDOGREL 2020-1 Yes [id number] TAKE 1 [facility] 75 mg 2-15 [id number] TABLET BY ity of tablet 00:00: MOUTH [place] 00 EVERY DAY Medical Branch PRAVASTATIN 2020-1 Yes [id number] 10mg TAKE 1 [facility] 10 mg 2-15 [id number] TABLET BY ity of tablet 00:00: MOUTH [place] 00 EVERY Medical OTHER DAY Branch CLOPIDOGREL 2020-1 Yes [id number] TAKE 1 [facility] 75 mg 2-15 [id number] TABLET BY ity of tablet 00:00: MOUTH [place] 00 EVERY DAY Medical Branch PRAVASTATIN 2020-1 Yes [id number] 10mg TAKE 1 [facility] 10 mg 2-15 [id number] TABLET BY ity of tablet 00:00: MOUTH [place] 00 EVERY Medical OTHER DAY Branch CLOPIDOGREL 2020-1 Yes [id number] TAKE 1 [facility] 75 mg 2-15 [id number] TABLET BY ity of tablet 00:00: MOUTH [place] 00 EVERY DAY Medical Branch PRAVASTATIN 2020-1 Yes [id number] 10mg TAKE 1 [facility] 10 mg 2-15 [id number] TABLET BY ity of tablet 00:00: MOUTH [place] 00 EVERY Medical OTHER DAY Branch CLOPIDOGREL 2020-1 Yes [id number] TAKE 1 [facility] 75 mg 2-15 [id number] TABLET BY ity of tablet 00:00: MOUTH [place] 00 EVERY DAY Medical Branch PRAVASTATIN 2020-1 Yes [id number] 10mg TAKE 1 [facility] 10 mg 2-15 [id number] TABLET BY ity of tablet 00:00: MOUTH [place] 00 EVERY Medical OTHER DAY Branch CLOPIDOGREL 2020-1 Yes [id number] TAKE 1 [facility] 75 mg 2-15 [id number] TABLET BY ity of tablet 00:00: MOUTH [place] 00 EVERY DAY Medical Branch PRAVASTATIN 2020-1 Yes [id number] 10mg TAKE 1 [facility] 10 mg 2-15 [id number] TABLET BY ity of tablet 00:00: MOUTH [place] 00 EVERY Medical OTHER DAY Branch CLOPIDOGREL 2020-1 Yes [id number] TAKE 1 [facility] 75 mg 2-15 [id number] TABLET BY ity of tablet 00:00: MOUTH [place] 00 EVERY DAY Medical Branch PRAVASTATIN 2020-1 Yes [id number] 10mg TAKE 1 [facility] 10 mg 2-15 [id number] TABLET BY ity of tablet 00:00: MOUTH [place] 00 EVERY Medical OTHER DAY Branch CLOPIDOGREL 2020-1 Yes [id number] TAKE 1 [facility] 75 mg 2-15 [id number] TABLET BY ity of tablet 00:00: MOUTH 00 EVERY DAY Medical Branch PRAVASTATIN 2020-1 Yes [id number] 10mg TAKE 1 [facility] 10 mg 2-15 [id number] TABLET BY ity of tablet 00:00: MOUTH [place] 00 EVERY Medical OTHER DAY Branch CLOPIDOGREL 2020-1 Yes [id number] TAKE 1 [facility] 75 mg 2-15 [id number] TABLET BY ity of tablet 00:00: MOUTH [place] 00 EVERY DAY Medical Branch PRAVASTATIN 2020-1 Yes [id number] 10mg TAKE 1 [facility] 10 mg 2-15 [id number] TABLET BY ity of tablet 00:00: MOUTH [place] 00 EVERY Medical OTHER DAY Branch CLOPIDOGREL 2020-1 Yes [id number] TAKE 1 [facility] 75 mg 2-15 [id number] TABLET BY ity of tablet 00:00: MOUTH [place] 00 EVERY DAY Medical Branch PRAVASTATIN 2020-1 Yes [id number] 10mg TAKE 1 [facility] 10 mg 2-15 [id number] TABLET BY ity of tablet 00:00: MOUTH [place] 00 EVERY Medical OTHER DAY Branch CLOPIDOGREL 2020-1 Yes [id number] TAKE 1 [facility] 75 mg 2-15 [id number] TABLET BY ity of tablet 00:00: MOUTH [place] 00 EVERY DAY Medical Branch PRAVASTATIN 2020-1 Yes [id number] 10mg TAKE 1 [facility] 10 mg 2-15 [id number] TABLET BY ity of tablet 00:00: MOUTH [place] 00 EVERY Medical OTHER DAY Branch CLOPIDOGREL 2020-1 Yes [id number] TAKE 1 [facility] 75 mg 2-15 [id number] TABLET BY ity of tablet 00:00: MOUTH [place] 00 EVERY DAY Medical Branch PRAVASTATIN 2020-1 Yes [id number] 10mg TAKE 1 [facility] 10 mg 2-15 [id number] TABLET BY ity of tablet 00:00: [facility] 00 EVERY Medical OTHER DAY Branch CLOPIDOGREL 2020-1 Yes [id number] TAKE 1 [facility] 75 mg 2-15 [id number] TABLET BY ity of tablet 00:00: [facility] EVERY DAY Medical Branch PRAVASTATIN 2020-1 Yes [id number] 10mg TAKE 1 [facility] 10 mg 2-15 [id number] TABLET BY ity of tablet 00:00: [facility] EVERY Medical OTHER DAY Branch CLOPIDOGREL 2020-1 Yes [id number] TAKE 1 [facility] 75 mg 2-15 [id number] TABLET BY ity of tablet 00:00: [facility] EVERY DAY Medical Branch PRAVASTATIN 2020-1 Yes [id number] 10mg TAKE 1 [facility] 10 mg 2-15 [id number] TABLET BY ity of tablet 00:00: [facility] EVERY Medical OTHER DAY Branch CLOPIDOGREL 2020-1 Yes [id number] TAKE 1 [facility] 75 mg 2-15 [id number] TABLET BY ity of tablet 00:00: [facility] EVERY DAY Medical Branch CLOPIDOGREL 2020-1 Yes [id number] TAKE 1 [facility] 75 mg 2-15 [id number] TABLET BY ity of tablet 00:00: [facility] EVERY DAY Medical Branch CLOPIDOGREL 2020-1 Yes [id number] TAKE 1 [facility] 75 mg 2-15 [id number] TABLET BY ity of tablet 00:00: [facility] 00 EVERY DAY Medical Branch CLOPIDOGREL 2020-1 Yes [id number] TAKE 1 [facility] 75 mg 2-15 [id number] TABLET BY ity of tablet 00:00: [facility] EVERY DAY Medical Branch CLOPIDOGREL 2020-1 Yes [id number] TAKE 1 [facility] 75 mg 2-15 [id number] TABLET BY ity of tablet 00:00: [facility] 00 EVERY DAY Medical Branch CLOPIDOGREL 2020-1 Yes [id number] TAKE 1 [facility] 75 mg 2-15 [id number] TABLET BY ity of tablet 00:00: [facility] EVERY DAY Medical Branch CLOPIDOGREL 2020-1 Yes [id number] TAKE 1 [facility] 75 mg 2-15 [id number] TABLET BY ity of tablet 00:00: [facility] 00 EVERY DAY Medical Branch CLOPIDOGREL 2020-1 Yes [id number] TAKE 1 [facility] 75 mg 2-15 [id number] TABLET BY ity of tablet 00:00: [facility] EVERY DAY Medical Branch CLOPIDOGREL 2020-1 Yes [id number] TAKE 1 [facility] 75 mg 2-15 [id number] TABLET BY ity of tablet 00:00: MOUTH [place] 00 EVERY DAY Medical Branch CLOPIDOGREL 2020-1 Yes [id number] TAKE 1 [facility] 75 mg 2-15 [id number] TABLET BY ity of tablet 00:00: MOUTH [place] 00 EVERY DAY Medical Branch CLOPIDOGREL 2020-1 Yes [id number] TAKE 1 [facility] 75 mg 2-15 [id number] TABLET BY ity of tablet 00:00: MOUTH [place] 00 EVERY DAY Medical Branch CLOPIDOGREL 2020-1 Yes [id number] TAKE 1 [facility] 75 mg 2-15 [id number] TABLET BY ity of tablet 00:00: MOUTH [place] 00 EVERY DAY Medical Branch CLOPIDOGREL 2020-1 Yes [id number] TAKE 1 [facility] 75 mg 2-15 [id number] TABLET BY ity of tablet 00:00: MOUTH [place] 00 EVERY DAY Medical Branch CLOPIDOGREL 2020-1 Yes [id number] TAKE 1 [facility] 75 mg 2-15 [id number] TABLET BY ity of tablet 00:00: MOUTH [place] 00 EVERY DAY Medical Branch CLOPIDOGREL 2020-1 Yes [id number] TAKE 1 [facility] 75 mg 2-15 [id number] TABLET BY ity of tablet 00:00: MOUTH [place] 00 EVERY DAY Medical Branch CLOPIDOGREL 2020-1 Yes [id number] TAKE 1 [facility] 75 mg 2-15 [id number] TABLET BY ity of tablet 00:00: MOUTH [place] 00 EVERY DAY Medical Branch CLOPIDOGREL 2020-1 Yes [id number] TAKE 1 [facility] 75 mg 2-15 [id number] TABLET BY ity of tablet 00:00: MOUTH [place] 00 EVERY DAY Medical Branch CLOPIDOGREL 2020-1 Yes [id number] TAKE 1 [facility] 75 mg 2-15 [id number] TABLET BY ity of tablet 00:00: MOUTH [place] 00 EVERY DAY Medical Branch CLOPIDOGREL 2020-1 2022- No [id number] TAKE 1 [facility] 75 mg 2-15 - [id number] TABLET BY ity of tablet 00:00: 00:00 MOUTH [place] 00 :00 EVERY DAY Medical Branch PRAVASTATIN 2020-1 202- No [id number] 10mg TAKE 1 [facility] 10 mg 2-15 - [id number] TABLET BY ity of tablet 00:00: 00:00 MOUTH [place] 00 :00 EVERY Medical OTHER DAY Branch PRAVASTATIN 2020-1 2020- No [id number] 10mg TAKE 1 [facility] 10 mg 2-15 05- [id number] TABLET BY ity of tablet 00:00: 00:00 MOUTH [place] 00 :00 EVERY Medical OTHER DAY Branch gabapentin 2020-1 Yes [id number] 100mg Take 1 [facility] 100 mg 2-14 [id number] capsule by ity o f capsule 00:00: mouth 3 [place] 00 (three) Medical times Branch daily. gabapentin 2019-09 Yes [id number] 100mg Take 1 [facility] 100 mg 2-14 [id number] capsule by ity o f capsule 00:00: mouth 3 [place] 00 (three) Medical times Branch daily. gabapentin 2019-09 Yes [id number] 100mg Take 1 [facility] 100 mg 2-14 [id number] capsule by ity o f capsule 00:00: mouth 3 [place] 00 (three) Medical times Branch daily. gabapentin 2019-09 Yes [id number] 100mg Take 1 [facility] 100 mg 2-14 [id number] capsule by ity o f capsule 00:00: mouth 3 [place] 00 (three) Medical times Branch daily. gabapentin 2019-09- No [id number] 100mg Take 1 [facility] 100 mg 2-14 -05 [id number] capsule by ity of capsule 00:00: 00:00 mouth 3 [place] 00 :00 (three) Medical times Branch daily. gabapentin 2019-09- No [id number] 100mg Take 1 [facility] 100 mg 2-14 -05 [id number] capsule by ity of capsule 00:00: 00:00 mouth 3 [place] 00 :00 (three) Medical times Branch daily. gabapentin 2019-09- No [id number] 100mg Take 1 [facility] 100 mg 2-14 12-14 [id number] capsule by ity of capsule 00:00: 00:00 mouth 3 [place] 00 :00 (three) Medical times Branch daily. cefUROXime 2019-09- No [id number] 500mg Take 1 [facility] 500 mg 2-10 12-18 tablet by ity of tablet 00:00: 05:59 mouth 2 [place] 00 :00 (two) Medical times Branch daily for 7 days. cefUROXime 2019-09- No [id number] 500mg Take 1 [facility] 500 mg 2-10 12-18 tablet by ity of tablet 00:00: 05:59 mouth 2 [place] 00 :00 (two) Medical times Branch daily for 7 days. cefUROXime 2019-09- No [id number] 500mg Take 1 [facility] 500 mg 2-10 12-18 tablet by ity of tablet 00:00: 05:59 mouth 2 [place] 00 :00 (two) Medical times Branch daily for 7 days. cefUROXime 2019-09- No [id number] 500mg Take 1 [facility] 500 mg 2-10 12-18 tablet by ity of tablet 00:00: 05:59 mouth 2 [place] 00 :00 (two) Medical times Branch daily for 7 days. cefUROXime 2019-09 2020- No [id number] 500mg Take 1 [facility] 500 mg 2-10 12-18 tablet by ity of tablet 00:00: 05:59 mouth 2 [place] 00 :00 (two) Medical times Branch daily for 7 days. metoprolol 2019- Yes [id number] 25mg Take 1 [facility] succinate 2-09 tablet by ity o f XL 25 mg 24 00:00: mouth 2 [place] tablet 00 (two) Medical times Branch daily. metoprolol 2019- Yes [id number] 25mg Take 1 [facility] succinate 2-09 tablet by ity o f XL 25 mg 24 00:00: mouth 2 [place] tablet 00 (two) Medical times Branch daily. clopidogreL 2019- Yes [id number] 75mg Take 1 [facility] (PLAVIX) 75 2- [id number] tablet by i ty of mg tablet 00:00: mouth [place] 00 daily. Medical Branch pravastatin 2019- Yes [id number] 10mg Take 1 [facility] 10 mg 2- [id number] tablet by ity of tablet 00:00: mouth [place] 00 every Medical other day. Branch metoprolol 2019- Yes [id number] 25mg Take 1 [facility] succinate 2-09 tablet by ity o f XL 25 mg 24 00:00: mouth 2 [place] tablet 00 (two) Medical times Branch daily. clopidogreL 2019- Yes [id number] 75mg Take 1 [facility] (PLAVIX) 75 2- [id number] tablet by i ty of mg tablet 00:00: mouth [place] 00 daily. Medical Branch pravastatin 2019- Yes [id number] 10mg Take 1 [facility] 10 mg 2-09 [id number] tablet by ity of tablet 00:00: mouth [place] 00 every Medical other day. Branch metoprolol 2019- Yes [id number] 25mg Take 1 [facility] succinate 2-09 tablet by ity o f XL 25 mg 24 00:00: mouth 2 [place] tablet 00 (two) Medical times Branch daily. clopidogreL 2019- Yes [id number] 75mg Take 1 [facility] (PLAVIX) 75 2- [id number] tablet by i ty of mg tablet 00:00: mouth [place] 00 daily. Medical Branch pravastatin 2020-1 Yes [id number] 10mg Take 1 [facility] 10 mg 2-09 [id number] tablet by ity of tablet 00:00: mouth [place] 00 every Medical other day. Branch metoprolol 2020-1 Yes [id number] 25mg Take 1 [facility] n[facility] succinate 2-09 tablet by ity o f XL 25 mg 24 00:00: mouth 2 [place] [facility] tablet 00 (two) Medical times Branch daily. clopidogreL 2020- Yes [id number] 75mg Take 1 [facility] (PLAVIX) 75 2-09 [id number] tablet by i ty of mg tablet 00:00: mouth [place] 00 daily. Medical Branch pravastatin 2020- Yes [id number] 10mg Take 1 [facility] 10 mg 2-09 [id number] tablet by ity of tablet 00:00: mouth [place] 00 every Medical other day. Branch metoprolol 2019- Yes [id number] 25mg Take 1 [facility] nivers succinate 2-09 tablet by ity o f XL 25 mg 24 00:00: mouth 2 [place] [facility] tablet 00 (two) Medical times Branch daily. metoprolol 2020- Yes [id number] 25mg Take 1 [facility] n[facility] succinate 2-09 tablet by ity o f XL 25 mg 24 00:00: mouth 2 [place] [facility] tablet 00 (two) Medical times Branch daily. clopidogreL 2020- Yes [id number] 75mg Take 1 [facility] (PLAVIX) 75 2-09 [id number] tablet by i ty of mg tablet 00:00: mouth [place] 00 daily. Medical Branch pravastatin 2020-1 Yes [id number] 10mg Take 1 [facility] 10 mg 2-09 [id number] tablet by ity of tablet 00:00: mouth [place] 00 every Medical other day. Branch metoprolol 2019- Yes [id number] 25mg Take 1 [facility] nivers succinate 2-09 tablet by ity o f XL 25 mg 24 00:00: mouth 2 [place] [facility] tablet 00 (two) Medical times Branch daily. metoprolol 2020-1 Yes [id number] 25mg Take 1 [facility] nivers succinate 2-09 tablet by ity o f XL 25 mg 24 00:00: mouth 2 [place] tablet 00 (two) Medical times Branch daily. metoprolol 2020- Yes [id number] 25mg Take 1 [facility] n[facility] succinate 2-09 tablet by ity o f XL 25 mg 24 00:00: mouth 2 [place] tablet 00 (two) Medical times Branch daily. metoprolol 2019- Yes [id number] 25mg Take 1 [facility] n[facility] succinate 2-09 tablet by ity o f XL 25 mg 24 00:00: mouth 2 [place] [facility] tablet 00 (two) Medical times Branch daily. metoprolol 2019- Yes [id number] 25mg Take 1 [facility] n[facility] succinate 2-09 tablet by ity o f XL 25 mg 24 00:00: mouth 2 [place] [facility] tablet 00 (two) Medical times Branch daily. metoprolol 2019- Yes [id number] 25mg Take 1 [facility] n[facility] succinate 2-09 tablet by ity o f XL 25 mg 24 00:00: mouth 2 [place] tablet 00 (two) Medical times Branch daily. metoprolol 2019- Yes [id number] 25mg Take 1 [facility] n[facility] succinate 2-09 tablet by ity o f XL 25 mg 24 00:00: mouth 2 [place] [facility] tablet 00 (two) Medical times Branch daily. metoprolol 2019- Yes [id number] 25mg Take 1 [facility] n[facility] succinate 2-09 tablet by ity o f XL 25 mg 24 00:00: mouth 2 [place] [facility] tablet 00 (two) Medical times Branch daily. metoprolol 2019- Yes [id number] 25mg Take 1 [facility] succinate 2-09 tablet by [facility] f XL 25 mg 24 00:00: mouth 2 [place] [facility] tablet 00 (two) Medical times Branch daily. metoprolol 2019- Yes [id number] 25mg Take 1 [facility] succinate 2-09 tablet by [facility] f XL 25 mg 24 00:00: mouth 2 [place] [facility] tablet 00 (two) Medical times [facility] daily. metoprolol 2019- Yes [id number] 25mg Take 1 [facility] succinate 2-09 tablet by [facility] f XL 25 mg 24 00:00: mouth 2 [place] [facility] tablet 00 (two) Medical times [facility] daily. metoprolol 2019- Yes [id number] 25mg Take 1 [facility] succinate 2-09 tablet by [facility] f XL 25 mg 24 00:00: mouth 2 [place] [facility] tablet 00 (two) Medical times [facility] daily. metoprolol 2019- Yes [id number] 25mg Take 1 [facility] succinate 2-09 tablet by [facility] f XL 25 mg 24 00:00: mouth 2 [place] [facility] tablet 00 (two) Medical times [facility] daily. metoprolol 2019- Yes [id number] 25mg Take 1 [facility] succinate 2-09 tablet by [facility] f XL 25 mg 24 00:00: mouth 2 [place] [facility] tablet 00 (two) Medical times [facility] daily. metoprolol 2019- Yes [id number] 25mg Take 1 [facility] succinate 2-09 tablet by [facility] f XL 25 mg 24 00:00: mouth 2 [place] [facility] tablet 00 (two) Medical times [facility] daily. metoprolol 2019- Yes [id number] 25mg Take 1 [facility] succinate 2-09 tablet by [facility] f XL 25 mg 24 00:00: mouth 2 [place] [facility] tablet 00 (two) Medical times [facility] daily. metoprolol 2019- Yes [id number] 25mg Take 1 [facility] succinate 2-09 tablet by [facility] f XL 25 mg 24 00:00: mouth 2 [place] [facility] tablet 00 (two) Medical times [facility] daily. metoprolol 2019- Yes [id number] 25mg Take 1 [facility] succinate 2-09 tablet by [facility] f XL 25 mg 24 00:00: mouth 2 [place] [facility] tablet 00 (two) Medical times [facility] daily. metoprolol 2019- Yes [id number] 25mg Take 1 [facility] succinate 2-09 tablet by [facility] f XL 25 mg 24 00:00: mouth 2 [place] [facility] tablet 00 (two) Medical times [facility] daily. metoprolol 2019- Yes [id number] 25mg Take 1 [facility] succinate 2-09 tablet by [facility] f XL 25 mg 24 00:00: mouth 2 [place] [facility] tablet 00 (two) Medical times [facility] daily. metoprolol 2019- Yes [id number] 25mg Take 1 [facility] succinate 2-09 tablet by [facility] f XL 25 mg 24 00:00: mouth 2 [place] [facility] tablet 00 (two) Medical times [facility] daily. metoprolol 2019- Yes [id number] 25mg Take 1 [facility] succinate 2-09 tablet by [facility] f XL 25 mg 24 00:00: mouth 2 [place] [facility] tablet 00 (two) Medical times [facility] daily. metoprolol 2019- Yes [id number] 25mg Take 1 [facility] succinate 2-09 tablet by [facility] f XL 25 mg 24 00:00: mouth 2 [place] [facility] tablet 00 (two) Medical times [facility] daily. metoprolol 2019-09 Yes [id number] 25mg Take 1 [facility] succinate 2-09 tablet by [facility] f XL 25 mg 24 00:00: mouth 2 [place] [facility] tablet 00 (two) Medical times [facility] daily. metoprolol 2019-09 Yes [id number] 25mg Take 1 [facility] succinate 2-09 tablet by [facility] f XL 25 mg 24 00:00: mouth 2 [place] [facility] tablet 00 (two) Medical times [facility] daily. metoprolol 2019-09 Yes [id number] 25mg Take 1 [facility] succinate 2-09 tablet by [facility] f XL 25 mg 24 00:00: mouth 2 [place] hr tablet 00 (two) Medical times [facility] daily. metoprolol 2019-09 Yes [id number] 25mg Take 1 [facility] succinate 2-09 tablet by [facility] f XL 25 mg 24 00:00: mouth 2 [place] hr tablet 00 (two) Medical times [facility] daily. metoprolol 2019-09 Yes [id number] 25mg Take 1 [facility] succinate 2-09 tablet by [facility] f XL 25 mg 24 00:00: mouth 2 [place] hr tablet 00 (two) Medical times [facility] daily. metoprolol 2019-09- No [id number] 25mg Take 1 [facility] succinate 2-09 05-21 tablet by [facility] XL 25 mg 24 00:00: 00:00 mouth 2 [place] hr tablet 00 :00 (two) Medical times Branch daily. clopidogreL 2019-09- No [id number] 75mg Take 1 [facility] (PLAVIX) 75 10-26 [id number] tablet by [facility] mg tablet 00:00: 00:00 mouth [place] 00 :00 daily. Medical Branch pravastatin 2019-09- No [id number] 10mg Take 1 [facility] 10 mg 10-26 [id number] tablet by [facility] of tablet 00:00: 00:00 mouth [place] 00 :00 every Medical other day. Branch tiZANidine 2019-09 Yes [id number] 4mg Take 1-2 [facility] 4 mg tablet 10-24 [id number] tablets by [facility] of 00:00: mouth [place] 00 every 8 Medical (eight) Branch hours as needed (muscle pain or spasm). metformin 2019-09 Yes [id number] 500mg Take 1 [facility] ER 500 mg 2-07 tablet by [facility] o f 24 hr 00:00: mouth 2 [place] tablet 00 (two) Medical times Branch daily with meals. triamterene 2019-09 Yes [id number] 1{tbl} Take 1 [facility] -hydrochlor 2-07 tablet by [facility] of othiazid 00:00: mouth [place] 37.5-25 mg 00 daily. Medical tablet Branch tiZANidine 2019-09 Yes [id number] 4mg Take 1-2 [facility] 4 mg tablet 2-07 [id number] tablets by [facility] of 00:00: mouth [place] 00 every 8 Medical (eight) Branch hours as needed (muscle pain or spasm). metformin 2019-09 Yes [id number] 500mg Take 1 [facility] ER 500 mg 2-07 tablet by [facility] o f 24 hr 00:00: mouth 2 [place] tablet 00 (two) Medical times Branch daily with meals. triamterene 2019-09 Yes [id number] 1{tbl} Take 1 [facility] -hydrochlor 2-07 tablet by [facility] of othiazid 00:00: mouth [place] 37.5-25 mg 00 daily. Medical tablet Branch tiZANidine 2019-09 Yes [id number] 4mg Take 1-2 [facility] 4 mg tablet 2-07 [id number] tablets by [facility] of 00:00: mouth [place] 00 every 8 Medical (eight) Branch hours as needed (muscle pain or spasm). metformin 2019-09 Yes [id number] 500mg Take 1 [facility] ER 500 mg 2-07 tablet by [facility] o f 24 hr 00:00: mouth 2 [place] tablet 00 (two) Medical times Branch daily with meals. triamterene 2019-09 Yes [id number] 1{tbl} Take 1 [facility] -hydrochlor 2-07 tablet by [facility] of othiazid 00:00: mouth [place] 37.5-25 mg 00 daily. Medical tablet Branch tiZANidine 2019-09 Yes [id number] 4mg Take 1-2 [facility] 4 mg tablet 2-07 [id number] tablets by [facility] of 00:00: mouth [place] 00 every 8 Medical (eight) Branch hours as needed (muscle pain or spasm). metformin 2019-09 Yes [id number] 500mg Take 1 [facility] ER 500 mg 2-07 tablet by [facility] o f 24 hr 00:00: mouth 2 [place] tablet 00 (two) Medical times Branch daily with meals. triamterene 2019-09 Yes [id number] 1{tbl} Take 1 [facility] -hydrochlor 2-07 tablet by [facility] of othiazid 00:00: mouth [place] 37.5-25 mg 00 daily. Medical tablet Branch tiZANidine 2019-09 Yes [id number] 4mg Take 1-2 [facility] 4 mg tablet 2-07 [id number] tablets by [facility] of 00:00: mouth [place] 00 every 8 Medical (eight) Branch hours as needed (muscle pain or spasm). metformin 2019-09 Yes [id number] 500mg Take 1 [facility] ER 500 mg 2-07 tablet by [facility] o f 24 hr 00:00: mouth 2 [place] tablet 00 (two) Medical times Branch daily with meals. triamterene 2019-09 Yes [id number] 1{tbl} Take 1 [facility] -hydrochlor 2-07 tablet by [facility] of othiazid 00:00: mouth [place] 37.5-25 mg 00 daily. Medical tablet Branch tiZANidine 2019-09 Yes [id number] 4mg Take 1-2 [facility] 4 mg tablet 2-07 [id number] tablets by [facility] of 00:00: mouth [place] 00 every 8 Medical (eight) Branch hours as needed (muscle pain or spasm). metformin 2019-09 Yes [id number] 500mg Take 1 [facility] ER 500 mg 2-07 tablet by [facility] o f 24 hr 00:00: mouth 2 [place] tablet 00 (two) Medical times Branch daily with meals. triamterene 2019-09 Yes [id number] 1{tbl} Take 1 [facility] -hydrochlor 2-07 tablet by [facility] of othiazid 00:00: mouth [place] 37.5-25 mg 00 daily. Medical tablet Branch tiZANidine 2019-09 Yes [id number] 4mg Take 1-2 [facility] 4 mg tablet 2-07 [id number] tablets by [facility] of 00:00: mouth [place] 00 every 8 Medical (eight) Branch hours as needed (muscle pain or spasm). metformin 2019-09 Yes [id number] 500mg Take 1 [facility] ER 500 mg 2-07 tablet by [facility] o f 24 hr 00:00: mouth 2 [place] tablet 00 (two) Medical times Branch daily with meals. triamterene 2019-09 Yes [id number] 1{tbl} Take 1 [facility] -hydrochlor 2-07 tablet by [facility] of othiazid 00:00: mouth [place] 37.5-25 mg 00 daily. Medical tablet Branch tiZANidine 2019-09 Yes [id number] 4mg Take 1-2 [facility] 4 mg tablet 2-07 [id number] tablets by [facility] of 00:00: mouth [place] 00 every 8 Medical (eight) Branch hours as needed (muscle pain or spasm). metformin 2019-09 Yes [id number] 500mg Take 1 [facility] ER 500 mg 2-07 tablet by [facility] o f 24 hr 00:00: mouth 2 [place] tablet 00 (two) Medical times Branch daily with meals. triamterene 2019-09 Yes [id number] 1{tbl} Take 1 [facility] -hydrochlor 2-07 tablet by [facility] of othiazid 00:00: mouth [place] 37.5-25 mg 00 daily. Medical tablet Branch tiZANidine 2019-09 Yes [id number] 4mg Take 1-2 [facility] 4 mg tablet 2-07 [id number] tablets by [facility] of 00:00: mouth [place] 00 every 8 Medical (eight) Branch hours as needed (muscle pain or spasm). metformin 2019-09 Yes [id number] 500mg Take 1 [facility] ER 500 mg 2-07 tablet by [facility] o f 24 hr 00:00: mouth 2 [place] tablet 00 (two) Medical times Branch daily with meals. triamterene 2019-09 Yes [id number] 1{tbl} Take 1 [facility] -hydrochlor 2-07 tablet by [facility] of othiazid 00:00: mouth [place] 37.5-25 mg 00 daily. Medical tablet Branch tiZANidine 2019-09 Yes [id number] 4mg Take 1-2 [facility] 4 mg tablet 2-07 [id number] tablets by [facility] of 00:00: mouth [place] 00 every 8 Medical (eight) Branch hours as needed (muscle pain or spasm). metformin 2019-09 Yes [id number] 500mg Take 1 [facility] ER 500 mg 2-07 tablet by [facility] o f 24 hr 00:00: mouth 2 [place] tablet 00 (two) Medical times Branch daily with meals. triamterene 2019-09 Yes [id number] 1{tbl} Take 1 [facility] -hydrochlor 2-07 tablet by [facility] of othiazid 00:00: mouth [place] 37.5-25 mg 00 daily. Medical tablet Branch tiZANidine 2019-09 Yes [id number] 4mg Take 1-2 [facility] 4 mg tablet 2-07 [id number] tablets by [facility] of 00:00: mouth [place] 00 every 8 Medical (eight) Branch hours as needed (muscle pain or spasm). metformin 2019-09 Yes [id number] 500mg Take 1 [facility] ER 500 mg 2-07 tablet by [facility] o f 24 hr 00:00: mouth 2 [place] tablet 00 (two) Medical times Branch daily with meals. triamterene 2019-09 Yes [id number] 1{tbl} Take 1 [facility] -hydrochlor 2-07 tablet by [facility] of othiazid 00:00: mouth [place] 37.5-25 mg 00 daily. Medical tablet Branch tiZANidine 2019-09 Yes [id number] 4mg Take 1-2 [facility] 4 mg tablet 2-07 [id number] tablets by [facility] of 00:00: mouth [place] 00 every 8 Medical (eight) Branch hours as needed (muscle pain or spasm). metformin 2019-09 Yes [id number] 500mg Take 1 [facility] ER 500 mg 2-07 tablet by [facility] o f 24 hr 00:00: mouth 2 [place] tablet 00 (two) Medical times Branch daily with meals. triamterene 2019-09 Yes [id number] 1{tbl} Take 1 [facility] -hydrochlor 2-07 tablet by [facility] of othiazid 00:00: mouth [place] 37.5-25 mg 00 daily. Medical tablet Branch tiZANidine 2019-09 Yes [id number] 4mg Take 1-2 [facility] 4 mg tablet 2-07 [id number] tablets by [facility] of 00:00: mouth [place] 00 every 8 Medical (eight) Branch hours as needed (muscle pain or spasm). metformin 2019-09 Yes [id number] 500mg Take 1 [facility] ER 500 mg 2-07 tablet by [facility] o f 24 hr 00:00: mouth 2 [place] tablet 00 (two) Medical times Branch daily with meals. triamterene 2019-09 Yes [id number] 1{tbl} Take 1 [facility] -hydrochlor 2-07 tablet by [facility] of othiazid 00:00: mouth [place] 37.5-25 mg 00 daily. Medical tablet Branch tiZANidine 2019-09 Yes [id number] 4mg Take 1-2 [facility] 4 mg tablet 2-07 [id number] tablets by [facility] of 00:00: mouth [place] 00 every 8 Medical (eight) Branch hours as needed (muscle pain or spasm). metformin 2019-09 Yes [id number] 500mg Take 1 [facility] ER 500 mg 2-07 tablet by [facility] o f 24 hr 00:00: mouth 2 [place] tablet 00 (two) Medical times Branch daily with meals. triamterene 2019-09 Yes [id number] 1{tbl} Take 1 [facility] -hydrochlor 2-07 tablet by [facility] of othiazid 00:00: mouth [place] 37.5-25 mg 00 daily. Medical tablet Branch tiZANidine 2019-09 Yes [id number] 4mg Take 1-2 [facility] 4 mg tablet 2-07 [id number] tablets by [facility] of 00:00: mouth [place] 00 every 8 Medical (eight) Branch hours as needed (muscle pain or spasm). metformin 2019-09 Yes [id number] 500mg Take 1 [facility] ER 500 mg 2-07 tablet by [facility] o f 24 hr 00:00: mouth 2 [place] tablet 00 (two) Medical times Branch daily with meals. triamterene 2019-09 Yes [id number] 1{tbl} Take 1 [facility] -hydrochlor 2-07 tablet by [facility] of othiazid 00:00: mouth [place] 37.5-25 mg 00 daily. Medical tablet Branch tiZANidine 2019-09 Yes [id number] 4mg Take 1-2 [facility] 4 mg tablet 2-07 [id number] tablets by [facility] of 00:00: mouth [place] 00 every 8 Medical (eight) Branch hours as needed (muscle pain or spasm). metformin 2019-09 Yes [id number] 500mg Take 1 [facility] ER 500 mg 2-07 tablet by [facility] o f 24 hr 00:00: mouth 2 [place] tablet 00 (two) Medical times Branch daily with meals. triamterene 2019-09 Yes [id number] 1{tbl} Take 1 [facility] -hydrochlor 2-07 tablet by [facility] of othiazid 00:00: mouth [place] 37.5-25 mg 00 daily. Medical tablet Branch tiZANidine 2019-09 Yes [id number] 4mg Take 1-2 [facility] 4 mg tablet 2-07 [id number] tablets by [facility] of 00:00: mouth [place] 00 every 8 Medical (eight) Branch hours as needed (muscle pain or spasm). metformin 2019-09 Yes [id number] 500mg Take 1 [facility] ER 500 mg 2-07 tablet by [facility] o f 24 hr 00:00: mouth 2 [place] tablet 00 (two) Medical times Branch daily with meals. triamterene 2019-09 Yes [id number] 1{tbl} Take 1 [facility] -hydrochlor 2-07 tablet by [facility] of othiazid 00:00: mouth [place] 37.5-25 mg 00 daily. Medical tablet Branch tiZANidine 2019-09 Yes [id number] 4mg Take 1-2 [facility] 4 mg tablet 2-07 [id number] tablets by [facility] of 00:00: mouth [place] 00 every 8 Medical (eight) Branch hours as needed (muscle pain or spasm). metformin 2019-09 Yes [id number] 500mg Take 1 [facility] ER 500 mg 2-07 tablet by [facility] o f 24 hr 00:00: mouth 2 [place] tablet 00 (two) Medical times Branch daily with meals. triamterene 2019-09 Yes [id number] 1{tbl} Take 1 [facility] -hydrochlor 2-07 tablet by [facility] of othiazid 00:00: mouth [place] 37.5-25 mg 00 daily. Medical tablet Branch tiZANidine 2019-09 Yes [id number] 4mg Take 1-2 [facility] 4 mg tablet 2-07 [id number] tablets by [facility] of 00:00: mouth [place] 00 every 8 Medical (eight) Branch hours as needed (muscle pain or spasm). metformin 2019-09 Yes [id number] 500mg Take 1 [facility] ER 500 mg 2-07 tablet by [facility] o f 24 hr 00:00: mouth 2 [place] tablet 00 (two) Medical times Branch daily with meals. triamterene 2019-09 Yes [id number] 1{tbl} Take 1 [facility] -hydrochlor 2-07 tablet by [facility] of othiazid 00:00: mouth [place] 37.5-25 mg 00 daily. Medical tablet Branch tiZANidine 2019-09 Yes [id number] 4mg Take 1-2 [facility] 4 mg tablet 2-07 [id number] tablets by [facility] of 00:00: mouth [place] 00 every 8 Medical (eight) Branch hours as needed (muscle pain or spasm). metformin 2019-09 Yes [id number] 500mg Take 1 [facility] ER 500 mg 2-07 tablet by [facility] o f 24 hr 00:00: mouth 2 [place] tablet 00 (two) Medical times Branch daily with meals. triamterene 2019-09 Yes [id number] 1{tbl} Take 1 [facility] -hydrochlor 2-07 tablet by [facility] of othiazid 00:00: mouth [place] 37.5-25 mg 00 daily. Medical tablet Branch tiZANidine 2019-09 Yes [id number] 4mg Take 1-2 [facility] 4 mg tablet 2-07 [id number] tablets by [facility] of 00:00: mouth [place] 00 every 8 Medical (eight) Branch hours as needed (muscle pain or spasm). metformin 2019-09 Yes [id number] 500mg Take 1 [facility] ER 500 mg 2-07 tablet by [facility] o f 24 hr 00:00: mouth 2 [place] tablet 00 (two) Medical times Branch daily with meals. triamterene 2019-09 Yes [id number] 1{tbl} Take 1 [facility] -hydrochlor 2-07 tablet by [facility] of othiazid 00:00: mouth [place] 37.5-25 mg 00 daily. Medical tablet Branch tiZANidine 2019-09 Yes [id number] 4mg Take 1-2 [facility] 4 mg tablet 2-07 [id number] tablets by [facility] of 00:00: mouth [place] 00 every 8 Medical (eight) Branch hours as needed (muscle pain or spasm). metformin 2019-09 Yes [id number] 500mg Take 1 [facility] ER 500 mg 2-07 tablet by [facility] o f 24 hr 00:00: mouth 2 [place] tablet 00 (two) Medical times Branch daily with meals. triamterene 2019-09 Yes [id number] 1{tbl} Take 1 [facility] -hydrochlor 2-07 tablet by [facility] of othiazid 00:00: mouth [place] 37.5-25 mg 00 daily. Medical tablet Branch tiZANidine 2019-09 Yes [id number] 4mg Take 1-2 [facility] 4 mg tablet 2-07 [id number] tablets by [facility] of 00:00: mouth [place] 00 every 8 Medical (eight) Branch hours as needed (muscle pain or spasm). metformin 2019-09 Yes [id number] 500mg Take 1 [facility] ER 500 mg 2-07 tablet by [facility] o f 24 hr 00:00: mouth 2 [place] tablet 00 (two) Medical times Branch daily with meals. triamterene 2019-09 Yes [id number] 1{tbl} Take 1 [facility] -hydrochlor 2-07 tablet by [facility] of othiazid 00:00: mouth [place] 37.5-25 mg 00 daily. Medical tablet Branch tiZANidine 2019-09 Yes [id number] 4mg Take 1-2 [facility] 4 mg tablet 2-07 [id number] tablets by [facility] of 00:00: mouth [place] 00 every 8 Medical (eight) Branch hours as needed (muscle pain or spasm). metformin 2019-09 Yes [id number] 500mg Take 1 [facility] ER 500 mg 2-07 tablet by [facility] o f 24 hr 00:00: mouth 2 [place] tablet 00 (two) Medical times Branch daily with meals. triamterene 2019-09 Yes [id number] 1{tbl} Take 1 [facility] -hydrochlor 2-07 tablet by [facility] of othiazid 00:00: mouth [place] 37.5-25 mg 00 daily. Medical tablet Branch tiZANidine 2019-09 Yes [id number] 4mg Take 1-2 [facility] 4 mg tablet 2-07 [id number] tablets by [facility] of 00:00: mouth [place] 00 every 8 Medical (eight) Branch hours as needed (muscle pain or spasm). metformin 2019-09 Yes [id number] 500mg Take 1 [facility] ER 500 mg 2-07 tablet by [facility] o f 24 hr 00:00: mouth 2 [place] tablet 00 (two) Medical times Branch daily with meals. triamterene 2019-09 Yes [id number] 1{tbl} Take 1 [facility] -hydrochlor 2-07 tablet by [facility] of othiazid 00:00: mouth [place] 37.5-25 mg 00 daily. Medical tablet Branch tiZANidine 2019-09 Yes [id number] 4mg Take 1-2 [facility] 4 mg tablet 2-07 [id number] tablets by [facility] of 00:00: mouth [place] 00 every 8 Medical (eight) Branch hours as needed (muscle pain or spasm). metformin 2019-09 Yes [id number] 500mg Take 1 [facility] ER 500 mg 2-07 tablet by [facility] o f 24 hr 00:00: mouth 2 [place] tablet 00 (two) Medical times Branch daily with meals. triamterene 2019-09 Yes [id number] 1{tbl} Take 1 [facility] -hydrochlor 2-07 tablet by [facility] of othiazid 00:00: mouth [place] 37.5-25 mg 00 daily. Medical tablet Branch tiZANidine 2019-09 Yes [id number] 4mg Take 1-2 [facility] 4 mg tablet 2-07 [id number] tablets by [facility] of 00:00: mouth [place] 00 every 8 Medical (eight) Branch hours as needed (muscle pain or spasm). metformin 2019-09 Yes [id number] 500mg Take 1 [facility] ER 500 mg 2-07 tablet by [facility] o f 24 hr 00:00: mouth 2 [place] tablet 00 (two) Medical times Branch daily with meals. triamterene 2019-09 Yes [id number] 1{tbl} Take 1 [facility] -hydrochlor 2-07 tablet by [facility] of othiazid 00:00: mouth [place] 37.5-25 mg 00 daily. Medical tablet Branch tiZANidine 2019-09 Yes [id number] 4mg Take 1-2 [facility] 4 mg tablet 2-07 [id number] tablets by [facility] of 00:00: mouth [place] 00 every 8 Medical (eight) Branch hours as needed (muscle pain or spasm). metformin 2019-09 Yes [id number] 500mg Take 1 [facility] ER 500 mg 2-07 tablet by [facility] o f 24 hr 00:00: mouth 2 [place] tablet 00 (two) Medical times Branch daily with meals. triamterene 2019-09 Yes [id number] 1{tbl} Take 1 [facility] -hydrochlor 2-07 tablet by [facility] of othiazid 00:00: mouth [place] 37.5-25 mg 00 daily. Medical tablet Branch tiZANidine 2019-09 Yes [id number] 4mg Take 1-2 [facility] 4 mg tablet 2-07 [id number] tablets by [facility] of 00:00: mouth [place] 00 every 8 Medical (eight) Branch hours as needed (muscle pain or spasm). metformin 2019-09 Yes [id number] 500mg Take 1 [facility] ER 500 mg 2-07 tablet by [facility] o f 24 hr 00:00: mouth 2 [place] tablet 00 (two) Medical times Branch daily with meals. triamterene 2019-09 Yes [id number] 1{tbl} Take 1 [facility] -hydrochlor 2-07 tablet by [facility] of othiazid 00:00: mouth [place] 37.5-25 mg 00 daily. Medical tablet Branch tiZANidine 2019-09 Yes [id number] 4mg Take 1-2 [facility] 4 mg tablet 2-07 [id number] tablets by [facility] of 00:00: mouth [place] 00 every 8 Medical (eight) Branch hours as needed (muscle pain or spasm). metformin 2019-09 Yes [id number] 500mg Take 1 [facility] ER 500 mg 2-07 tablet by [facility] o f 24 hr 00:00: mouth 2 [place] tablet 00 (two) Medical times Branch daily with meals. triamterene 2019-09 Yes [id number] 1{tbl} Take 1 [facility] -hydrochlor 2-07 tablet by [facility] of othiazid 00:00: mouth [place] 37.5-25 mg 00 daily. Medical tablet Branch tiZANidine 2019-09 Yes [id number] 4mg Take 1-2 [facility] 4 mg tablet 2-07 [id number] tablets by [facility] of 00:00: mouth [place] 00 every 8 Medical (eight) Branch hours as needed (muscle pain or spasm). metformin 2019-09 Yes [id number] 500mg Take 1 [facility] ER 500 mg 2-07 tablet by [facility] o f 24 hr 00:00: mouth 2 [place] tablet 00 (two) Medical times Branch daily with meals. triamterene 2019-09 Yes [id number] 1{tbl} Take 1 [facility] -hydrochlor 2-07 tablet by [facility] of othiazid 00:00: mouth [place] 37.5-25 mg 00 daily. Medical tablet Branch tiZANidine 2019-09 Yes [id number] 4mg Take 1-2 [facility] 4 mg tablet 2-07 [id number] tablets by [facility] of 00:00: mouth [place] 00 every 8 Medical (eight) Branch hours as needed (muscle pain or spasm). metformin 2019-09 Yes [id number] 500mg Take 1 [facility] ER 500 mg 2-07 tablet by [facility] o f 24 hr 00:00: mouth 2 [place] tablet 00 (two) Medical times Branch daily with meals. triamterene 2019-09 Yes [id number] 1{tbl} Take 1 [facility] -hydrochlor 2-07 tablet by [facility] of othiazid 00:00: mouth [place] 37.5-25 mg 00 daily. Medical tablet Branch tiZANidine 2019-09 Yes [id number] 4mg Take 1-2 [facility] 4 mg tablet 2-07 [id number] tablets by [facility] of 00:00: mouth [place] 00 every 8 Medical (eight) Branch hours as needed (muscle pain or spasm). metformin 2019-09 Yes [id number] 500mg Take 1 [facility] ER 500 mg 2-07 tablet by [facility] o f 24 hr 00:00: mouth 2 [place] tablet 00 (two) Medical times Branch daily with meals. triamterene 2019-09 Yes [id number] 1{tbl} Take 1 [facility] -hydrochlor 2-07 tablet by [facility] of othiazid 00:00: mouth [place] 37.5-25 mg 00 daily. Medical tablet Branch tiZANidine 2019-09 Yes [id number] 4mg Take 1-2 [facility] 4 mg tablet 2-07 [id number] tablets by [facility] of 00:00: mouth [place] 00 every 8 Medical (eight) Branch hours as needed (muscle pain or spasm). metformin 2019-09 Yes [id number] 500mg Take 1 [facility] ER 500 mg 2-07 tablet by [facility] o f 24 hr 00:00: mouth 2 [place] tablet 00 (two) Medical times Branch daily with meals. triamterene 2019-09 Yes [id number] 1{tbl} Take 1 [facility] -hydrochlor 2-07 tablet by [facility] of othiazid 00:00: mouth [place] 37.5-25 mg 00 daily. Medical tablet Branch tiZANidine 2019-09 Yes [id number] 4mg Take 1-2 [facility] 4 mg tablet 2-07 [id number] tablets by [facility] of 00:00: mouth [place] 00 every 8 Medical (eight) Branch hours as needed (muscle pain or spasm). triamterene 2019-09 Yes [id number] 1{tbl} Take 1 [facility] -hydrochlor 2-07 tablet by [facility] of othiazid 00:00: mouth [place] 37.5-25 mg 00 daily. Medical tablet Branch tiZANidine 2019-09 Yes [id number] 4mg Take 1-2 [facility] 4 mg tablet 2-07 [id number] tablets by [facility] of 00:00: mouth [place] 00 every 8 Medical (eight) Branch hours as needed (muscle pain or spasm). triamterene 2019-09 Yes [id number] 1{tbl} Take 1 [facility] -hydrochlor 2-07 tablet by [facility] of othiazid 00:00: mouth [place] 37.5-25 mg 00 daily. Medical tablet Branch tiZANidine 2019-09 Yes [id number] 4mg Take 1-2 [facility] 4 mg tablet 2-07 [id number] tablets by [facility] of 00:00: mouth [place] 00 every 8 Medical (eight) Branch hours as needed (muscle pain or spasm). triamterene 2019- Yes [id number] 1{tbl} Take 1 [facility] -hydrochlor 2-07 tablet by [facility] of othiazid 00:00: mouth [place] 37.5-25 mg 00 daily. Medical tablet Branch tiZANidine 2019- Yes [id number] 4mg Take 1-2 [facility] 4 mg tablet 2-07 [id number] tablets by [facility] of 00:00: mouth [place] 00 every 8 Medical (eight) Branch hours as needed (muscle pain or spasm). triamterene 2019- Yes [id number] 1{tbl} Take 1 [facility] -hydrochlor 2-07 tablet by [facility] of othiazid 00:00: mouth [place] 37.5-25 mg 00 daily. Medical tablet Branch tiZANidine 2019- Yes [id number] 4mg Take 1-2 [facility] 4 mg tablet 2-07 [id number] tablets by [facility] of 00:00: mouth [place] 00 every 8 Medical (eight) Branch hours as needed (muscle pain or spasm). triamterene 2019- Yes [id number] 1{tbl} Take 1 [facility] -hydrochlor 2-07 tablet by [facility] of othiazid 00:00: mouth [place] 37.5-25 mg 00 daily. Medical tablet Branch tiZANidine 2019- Yes [id number] 4mg Take 1-2 [facility] 4 mg tablet 2-07 [id number] tablets by [facility] of 00:00: mouth [place] 00 every 8 Medical (eight) Branch hours as needed (muscle pain or spasm). triamterene 2019- Yes [id number] 1{tbl} Take 1 [facility] -hydrochlor 2-07 tablet by [facility] of othiazid 00:00: mouth [place] 37.5-25 mg 00 daily. Medical tablet Branch tiZANidine 2019- Yes [id number] 4mg Take 1-2 [facility] 4 mg tablet 2-07 [id number] tablets by [facility] of 00:00: mouth [place] 00 every 8 Medical (eight) Branch hours as needed (muscle pain or spasm). triamterene 2019- Yes [id number] 1{tbl} Take 1 [facility] -hydrochlor 2-07 tablet by [facility] of othiazid 00:00: mouth [place] 37.5-25 mg 00 daily. Medical tablet Branch tiZANidine 2019-1 Yes [id number] 4mg Take 1-2 [facility] 4 mg tablet 2-07 [id number] tablets by ity of 00:00: mouth [place] 00 every 8 Medical (eight) Branch hours as needed (muscle pain or spasm). triamterene 2019- Yes [id number] 1{tbl} Take 1 [facility] -hydrochlor 2-07 tablet by ity of othiazid 00:00: mouth [place] 37.5-25 mg 00 daily. Medical tablet Branch tiZANidine 2019- Yes [id number] 4mg Take 1-2 [facility] 4 mg tablet 2-07 [id number] tablets by ity of 00:00: mouth [place] 00 every 8 Medical (eight) Branch hours as needed (muscle pain or spasm). tiZANidine 2019-09 Yes [id number] 4mg Take 1-2 [facility] 4 mg tablet 2- [id number] tablets by ity of 00:00: mouth [place] 00 every 8 Medical (eight) Branch hours as needed (muscle pain or spasm). tiZANidine 2019-09 Yes [id number] 4mg Take 1-2 [facility] 4 mg tablet 2- [id number] tablets by ity of 00:00: mouth [place] 00 every 8 Medical (eight) Branch hours as needed (muscle pain or spasm). tiZANidine 2019-09 Yes [id number] 4mg Take 1-2 [facility] 4 mg tablet 2- [id number] tablets by ity of 00:00: mouth [place] 00 every 8 Medical (eight) Branch hours as needed (muscle pain or spasm). tiZANidine 2019- Yes [id number] 4mg Take 1-2 [facility] 4 mg tablet 2- [id number] tablets by ity of 00:00: mouth [place] 00 every 8 Medical (eight) Branch hours as needed (muscle pain or spasm). tiZANidine 2019-09 Yes [id number] 4mg Take 1-2 [facility] 4 mg tablet 2-07 [id number] tablets by ity of 00:00: mouth [place] 00 every 8 Medical (eight) Branch hours as needed (muscle pain or spasm). tiZANidine 2019- Yes [id number] 4mg Take 1-2 [facility] 4 mg tablet 2-07 [id number] tablets by ity of 00:00: mouth [place] 00 every 8 Medical (eight) Branch hours as needed (muscle pain or spasm). tiZANidine 2019-1 Yes [id number] 4mg Take 1-2 [facility] 4 mg tablet 2-07 [id number] tablets by ity of 00:00: mouth [place] 00 every 8 Medical (eight) Branch hours as needed (muscle pain or spasm). tiZANidine 2019-09 Yes [id number] 4mg Take 1-2 [facility] 4 mg tablet 2-07 [id number] tablets by ity of 00:00: mouth [place] 00 every 8 Medical (eight) Branch hours as needed (muscle pain or spasm). tiZANidine 2019-09 Yes [id number] 4mg Take 1-2 [facility] 4 mg tablet 2-07 [id number] tablets by ity of 00:00: mouth [place] 00 every 8 Medical (eight) Branch hours as needed (muscle pain or spasm). tiZANidine 2019-09 Yes [id number] 4mg Take 1-2 [facility] 4 mg tablet 2- [id number] tablets by ity of 00:00: mouth [place] 00 every 8 Medical (eight) Branch hours as needed (muscle pain or spasm). tiZANidine 2019-09 Yes [id number] 4mg Take 1-2 [facility] 4 mg tablet 2- [id number] tablets by ity of 00:00: mouth [place] 00 every 8 Medical (eight) Branch hours as needed (muscle pain or spasm). tiZANidine 2019-09 Yes [id number] 4mg Take 1-2 [facility] 4 mg tablet 2-07 [id number] tablets by ity of 00:00: mouth [place] 00 every 8 Medical (eight) Branch hours as needed (muscle pain or spasm). tiZANidine 2019-09 Yes [id number] 4mg Take 1-2 [facility] 4 mg tablet 2-07 [id number] tablets by ity of 00:00: mouth [place] 00 every 8 Medical (eight) Branch hours as needed (muscle pain or spasm). tiZANidine 2019-09 Yes [id number] 4mg Take 1-2 [facility] 4 mg tablet 2-07 [id number] tablets by ity of 00:00: mouth [place] 00 every 8 Medical (eight) Branch hours as needed (muscle pain or spasm). tiZANidine 2019-09 Yes [id number] 4mg Take 1-2 [facility] 4 mg tablet 2-07 [id number] tablets by ity of 00:00: mouth [place] 00 every 8 Medical (eight) Branch hours as needed (muscle pain or spasm). triamterene 2019-09- No [id number] 1{tbl} Take 1 [facility] -hydrochlor 2-03 22-08 tablet by it y of othiazid 00:00: 00:00 mouth [place] 37.5-25 mg 00 :00 daily. Medical tablet Branch metformin 2019-09- No [id number] 500mg Take 1 [facility] ER 500 mg 2-03 21- tablet by ity of 24 hr 00:00: 00:00 mouth 2 [place] tablet 00 :00 (two) Medical times Branch daily with meals. metformin 2019-09 No [id number] 500mg Take 1 [facility] ER 500 mg 10-24- tablet by ity of 24 hr 00:00: 00:00 mouth 2 [place] tablet 00 :00 (two) Medical times [place] daily with meals. triamterene 2019-09- No [id number] 1{tbl} Take 1 [facility] -hydrochlor 2-03 28- tablet by it y of othiazid 00:00: 00:00 mouth [place] 37.5-25 mg 00 :00 daily. Medical tablet Branch triamterene 2019-09- No [id number] 1{tbl} Take 1 [facility] -hydrochlor 2-03 28- tablet by it y of othiazid 00:00: 00:00 mouth [place] 37.5-25 mg 00 :00 daily. Medical tablet Branch METFORMIN 2019-09 Yes [id number] TAKE 1 [facility] [place] ER 750 mg 1-28 TABLET BY ity o f 24 hr 00:00: MOUTH [place] tablet 00 TWICE A Medical DAY WITH Branch MEALS METFORMIN 2019-09 Yes [id number] TAKE 1 [facility] [place] ER 750 mg 1-28 TABLET BY ity o f 24 hr 00:00: MOUTH [place] tablet 00 TWICE A Medical DAY WITH Branch MEALS METFORMIN 2019-09- No [id number] TAKE 1 [facility] ER 750 mg 1-28 - TABLET BY ity of 24 hr 00:00: 00:00 MOUTH [place] tablet 00 :00 TWICE A Medical DAY WITH Branch MEALS METFORMIN 2019-09- No [id number] TAKE 1 [facility] ER 750 mg 1-28 - TABLET BY ity of 24 hr 00:00: 00:00 MOUTH [place] tablet 00 :00 TWICE A Medical DAY WITH Branch MEALS DOCOSAHEXAN 2019-09 Yes Take by [facility] vers OIC 0-23 mouth. ity of ACID/EPA 17:03: [place] (FISH OIL 43 Medical ORAL) Branch alcaftadine 2020- Yes Place in [facility] [place] (LASTACAFT) 0-23 each eye. ity of 0.25 % Drop 17:03: [place] [address] Medical Branch CYCLOSPORIN 2020- Yes Place in [facility] [place] [facility] (RESTASIS 0-23 each eye. ity of OPHTHALMIC) 17:03: [place] [address] Medical Branch DOCOSAHEXAN 2019- Yes Take by [facility] vers OIC 0-23 mouth. ity of ACID/EPA 17:03: [place] (FISH OIL 43 Medical ORAL) Branch vitamin E 2019- Yes 1000U Take 1,000 [facility] 1,000 unit 0-23 Units by ity o f capsule 17:03: mouth [place] 43 daily. Medical Branch Magnesium 2019- Yes Take by [facility] rs 250 mg Tab 0-23 mouth. ity of 17:03: [place] [address] Medical Branch vitamin B-6 2019- Yes 100mg Take 100 [facility] (VITAMIN 0-23 mg by ity of B-6) 100 mg 17:03: mouth [place] tablet 43 daily. Medical Branch CALCIUM 2019- Yes Take by [facility] CARBONATE/V 0-23 mouth. ity of ITAMIN D3 17:03: [place] (VITAMIN 43 Medical D-3 ORAL) Branch alcaftadine 2019-[address] in [facility] [place] (LASTACAFT) 0-23 each eye. ity of 0.25 % Drop 17:03: [place] [address] Medical Branch CYCLOSPORIN 2019- Yes Place in [facility] [place] [facility] (RESTASIS 0-23 each eye. ity of OPHTHALMIC) 17:03: [place] [address] Medical Branch DOCOSAHEXAN 2019- Yes Take by [facility] vers OIC 0-23 mouth. ity of ACID/EPA 17:03: [place] (FISH OIL 43 Medical ORAL) Branch vitamin E 2020- Yes 1000U Take 1,000 [facility] 1,000 unit 0-23 Units by ity o f capsule 17:03: mouth [place] 43 daily. Medical Branch Magnesium 2020- Yes Take by [facility] 250 mg Tab 0-23 mouth. ity of 17:03: [place] [address] Medical Branch vitamin B-6 2019- Yes 100mg Take 100 [facility] (VITAMIN 0-23 mg by ity of B-6) 100 mg 17:03: mouth [place] tablet 43 daily. Medical Branch CALCIUM 2020- Yes Take by [facility] CARBONATE/V 0-23 mouth. ity of ITAMIN D3 17:03: [place] (VITAMIN 43 Medical D-3 ORAL) Branch alcaftadine 2020- Yes Place in [facility] [place] (LASTACAFT) 0-23 each eye. ity of 0.25 % Drop 17:03: [place] [address] Medical Branch CYCLOSPORIN 2019- Yes Place in [facility] [place] [facility] (RESTASIS 0-23 each eye. ity of OPHTHALMIC) 17:03: [place] [address] Medical Branch DOCOSAHEXAN 2019- Yes Take by [facility] vers OIC 0-23 mouth. ity of ACID/EPA 17:03: [place] (FISH OIL 43 Medical ORAL) Branch vitamin E 2019-09 Yes 1000U Take 1,000 [facility] 1,000 unit 0-23 Units by ity o f capsule 17:03: mouth [place] 43 daily. Medical Branch Magnesium 2019- Yes Take by [facility] 250 mg Tab 0-23 mouth. ity of 17:03: [place] [address] Medical Branch vitamin B-6 2019-09 Yes 100mg Take 100 [facility] (VITAMIN 0-23 mg by ity of B-6) 100 mg 17:03: mouth [place] tablet 43 daily. Medical Branch CALCIUM 2019- Yes Take by [facility] CARBONATE/V 0-23 mouth. ity of ITAMIN D3 17:03: [place] (VITAMIN 43 Medical D-3 ORAL) Branch alcaftadine 2019-[address] in [facility] [place] (LASTACAFT) 0-23 each eye. ity of 0.25 % Drop 17:03: [place] [address] Medical Branch CYCLOSPORIN 2019-[address] in [facility] [place] [facility] (RESTASIS 0-23 each eye. ity of OPHTHALMIC) 17:03: [place] [address] Medical Branch DOCOSAHEXAN 2019- Yes Take by [facility] vers OIC 0-23 mouth. ity of ACID/EPA 17:03: [place] (FISH OIL 43 Medical ORAL) Branch vitamin E 2019- Yes 1000U Take 1,000 [facility] 1,000 unit 0-23 Units by ity o f capsule 17:03: mouth [place] 43 daily. Medical Branch Magnesium 2019- Yes Take by [facility] 250 mg Tab 0-23 mouth. ity of 17:03: [place] [address] Medical Branch vitamin B-6 2019- Yes 100mg Take 100 [facility] (VITAMIN 0-23 mg by ity of B-6) 100 mg 17:03: mouth [place] tablet 43 daily. Medical Branch CALCIUM 2020- Yes Take by [facility] CARBONATE/V 0-23 mouth. ity of ITAMIN D3 17:03: [place] (VITAMIN 43 Medical D-3 ORAL) Branch alcaftadine 2020- Yes Place in [facility] [place] (LASTACAFT) 0-23 each eye. ity of 0.25 % Drop 17:03: [place] [address] Medical Branch CYCLOSPORIN 2019- Yes Place in [facility] [place] [facility] (RESTASIS 0-23 each eye. ity of OPHTHALMIC) 17:03: [place] [address] Medical Branch DOCOSAHEXAN 2019- Yes Take by [facility] vers OIC 0-23 mouth. ity of ACID/EPA 17:03: [place] (FISH OIL 43 Medical ORAL) Branch vitamin E 2019-09 Yes 1000U Take 1,000 [facility] 1,000 unit 0-23 Units by ity o f capsule 17:03: mouth [place] 43 daily. Medical Branch Magnesium 2019- Yes Take by [facility] rs 250 mg Tab 0-23 mouth. ity of 17:03: [place] [address] Medical Branch vitamin B-6 2019- Yes 100mg Take 100 [facility] (VITAMIN 0-23 mg by ity of B-6) 100 mg 17:03: mouth [place] tablet 43 daily. Medical Branch CALCIUM 2019- Yes Take by [facility] CARBONATE/V 0-23 mouth. ity of ITAMIN D3 17:03: [place] (VITAMIN 43 Medical D-3 ORAL) Branch alcaftadine 2019-[address] in [facility] [place] (LASTACAFT) 0-23 each eye. ity of 0.25 % Drop 17:03: [place] [address] Medical Branch CYCLOSPORIN 2019- Yes Place in [facility] [place] [facility] (RESTASIS 0-23 each eye. ity of OPHTHALMIC) 17:03: [place] [address] Medical Branch DOCOSAHEXAN 2019- Yes Take by [facility] vers OIC 0-23 mouth. ity of ACID/EPA 17:03: [place] (FISH OIL 43 Medical ORAL) Branch vitamin E 2019- Yes 1000U Take 1,000 [facility] 1,000 unit 0-23 Units by ity o f capsule 17:03: mouth [place] 43 daily. Medical Branch Magnesium 2020- Yes Take by [facility] 250 mg Tab 0-23 mouth. ity of 17:03: [place] [address] Medical Branch vitamin B-6 2019- Yes 100mg Take 100 [facility] (VITAMIN 0-23 mg by ity of B-6) 100 mg 17:03: mouth [place] tablet 43 daily. Medical Branch CALCIUM 2019- Yes Take by [facility] CARBONATE/V 0-23 mouth. ity of ITAMIN D3 17:03: [place] (VITAMIN 43 Medical D-3 ORAL) Branch alcaftadine 2019-[address] in [facility] [place] (LASTACAFT) 0-23 each eye. ity of 0.25 % Drop 17:03: [place] [address] Medical Branch CYCLOSPORIN 2019-[address] in [place] [facility] (RESTASIS 0-23 each eye. ity of OPHTHALMIC) 17:03: [place] [address] Medical Branch DOCOSAHEXAN 2019-09 Yes Take by [facility] vers OIC 0-23 mouth. ity of ACID/EPA 17:03: [place] (FISH OIL 43 Medical ORAL) Branch vitamin E 2019-09 Yes 1000U Take 1,000 [facility] 1,000 unit 0-23 Units by ity o f capsule 17:03: mouth [place] 43 daily. Medical Branch Magnesium 2019- Yes Take by [facility] 250 mg Tab 0-23 mouth. ity of 17:03: [place] [address] Medical Branch vitamin B-6 2019-09 Yes 100mg Take 100 [facility] (VITAMIN 0-23 mg by ity of B-6) 100 mg 17:03: mouth [place] tablet 43 daily. Medical Branch CALCIUM 2019-09 Yes Take by [facility] CARBONATE/V 0-23 mouth. ity of ITAMIN D3 17:03: [place] (VITAMIN 43 Medical D-3 ORAL) Branch alcaftadine 2019-[address] in [facility] (LASTACAFT) 0-23 each eye. ity of 0.25 % Drop 17:03: [place] [address] Medical Branch CYCLOSPORIN 2019-[address] in [facility] [place] [facility] (RESTASIS 0-23 each eye. ity of OPHTHALMIC) 17:03: [place] [address] Medical Branch DOCOSAHEXAN 2019- Yes Take by [facility] vers OIC 0-23 mouth. ity of ACID/EPA 17:03: [place] (FISH OIL 43 Medical ORAL) Branch vitamin E 2019- Yes 1000U Take 1,000 [facility] 1,000 unit 0-23 Units by ity o f capsule 17:03: mouth [place] 43 daily. Medical Branch Magnesium 2020- Yes Take by [facility] 250 mg Tab 0-23 mouth. ity of 17:03: [place] [address] Medical Branch vitamin B-6 2020- Yes 100mg Take 100 [facility] (VITAMIN 0-23 mg by ity of B-6) 100 mg 17:03: mouth [place] tablet 43 daily. Medical Branch CALCIUM 2019- Yes Take by [facility] CARBONATE/V 0-23 mouth. ity of ITAMIN D3 17:03: [place] (VITAMIN 43 Medical D-3 ORAL) Branch alcaftadine 2019- Yes Place in [facility] [place] (LASTACAFT) 0-23 each eye. ity of 0.25 % Drop 17:03: [place] [address] Medical Branch CYCLOSPORIN 2019- Yes Place in [facility] [place] [facility] (RESTASIS 0-23 each eye. ity of OPHTHALMIC) 17:03: [place] [address] Medical Branch DOCOSAHEXAN 2019-09 Yes Take by [facility] vers OIC 0-23 mouth. ity of ACID/EPA 17:03: [place] (FISH OIL 43 Medical ORAL) Branch vitamin E 2019-09 Yes 1000U Take 1,000 [facility] 1,000 unit 0-23 Units by ity o f capsule 17:03: mouth [place] 43 daily. Medical Branch Magnesium 2019- Yes Take by [facility] 250 mg Tab 0-23 mouth. ity of 17:03: [place] [address] Medical Branch vitamin B-6 2019-09 Yes 100mg Take 100 [facility] (VITAMIN 0-23 mg by ity of B-6) 100 mg 17:03: mouth [place] tablet 43 daily. Medical Branch CALCIUM 2019- Yes Take by [facility] CARBONATE/V 0-23 mouth. ity of ITAMIN D3 17:03: [place] (VITAMIN 43 Medical D-3 ORAL) Branch alcaftadine 2019-[address] in [facility] [place] (LASTACAFT) 0-23 each eye. ity of 0.25 % Drop 17:03: [place] [address] Medical Branch CYCLOSPORIN 2019- Yes Place in [facility] [place] [facility] (RESTASIS 0-23 each eye. ity of OPHTHALMIC) 17:03: [place] [address] Medical Branch DOCOSAHEXAN 2019- Yes Take by [facility] vers OIC 0-23 mouth. ity of ACID/EPA 17:03: [place] (FISH OIL 43 Medical ORAL) Branch vitamin E 2020- Yes 1000U Take 1,000 [facility] 1,000 unit 0-23 Units by ity o f capsule 17:03: mouth [place] 43 daily. Medical Branch Magnesium 2020- Yes Take by [facility] 250 mg Tab 0-23 mouth. ity of 17:03: [place] [address] Medical Branch vitamin B-6 2019- Yes 100mg Take 100 [facility] (VITAMIN 0-23 mg by ity of B-6) 100 mg 17:03: mouth [place] tablet 43 daily. Medical Branch CALCIUM 2019- Yes Take by [facility] CARBONATE/V 0-23 mouth. ity of ITAMIN D3 17:03: [place] (VITAMIN 43 Medical D-3 ORAL) Branch alcaftadine 2019-[address] in [place] (LASTACAFT) 0-23 each eye. ity of 0.25 % Drop 17:03: [place] [address] Medical Branch CYCLOSPORIN 2019-[address] in [place] [facility] (RESTASIS 0-23 each eye. ity of OPHTHALMIC) 17:03: [place] [address] Medical Branch DOCOSAHEXAN 2019-09 Yes Take by [facility] vers OIC 0-23 mouth. ity of ACID/EPA 17:03: [place] (FISH OIL 43 Medical ORAL) Branch vitamin E 2019-09 Yes 1000U Take 1,000 [facility] 1,000 unit 0-23 Units by ity o f capsule 17:03: mouth [place] 43 daily. Medical Branch Magnesium 2019- Yes Take by [facility] 250 mg Tab 0-23 mouth. ity of 17:03: [place] [address] Medical Branch vitamin B-6 2019-09 Yes 100mg Take 100 [facility] (VITAMIN 0-23 mg by ity of B-6) 100 mg 17:03: mouth [place] tablet 43 daily. Medical Branch CALCIUM 2019-09 Yes Take by [facility] CARBONATE/V 0-23 mouth. ity of ITAMIN D3 17:03: [place] (VITAMIN 43 Medical D-3 ORAL) Branch alcaftadine 2019-[address] in [place] (LASTACAFT) 0-23 each eye. ity of 0.25 % Drop 17:03: [place] [address] Medical Branch CYCLOSPORIN 2019- Yes Place in [place] [facility] (RESTASIS 0-23 each eye. ity of OPHTHALMIC) 17:03: [place] [address] Medical Branch DOCOSAHEXAN 2019- Yes Take by [facility] vers OIC 0-23 mouth. ity of ACID/EPA 17:03: [place] (FISH OIL 43 Medical ORAL) Branch vitamin E 2019- Yes 1000U Take 1,000 [facility] 1,000 unit 0-23 Units by ity o f capsule 17:03: mouth [place] 43 daily. Medical Branch Magnesium 2020- Yes Take by [facility] 250 mg Tab 0-23 mouth. ity of 17:03: [place] [address] Medical Branch vitamin B-6 2019- Yes 100mg Take 100 [facility] (VITAMIN 0-23 mg by ity of B-6) 100 mg 17:03: mouth [place] tablet 43 daily. Medical Branch CALCIUM 2019- Yes Take by [facility] CARBONATE/V 0-23 mouth. ity of ITAMIN D3 17:03: [place] (VITAMIN 43 Medical D-3 ORAL) Branch alcaftadine 2019-[address] in [place] (LASTACAFT) 0-23 each eye. ity of 0.25 % Drop 17:03: [place] [address] Medical Branch CYCLOSPORIN 2019-[address] in [place] [facility] (RESTASIS 0-23 each eye. ity of OPHTHALMIC) 17:03: [place] [address] Medical Branch DOCOSAHEXAN 2019-09 Yes Take by [facility] vers OIC 0-23 mouth. ity of ACID/EPA 17:03: [place] (FISH OIL 43 Medical ORAL) Branch vitamin E 2019-09 Yes 1000U Take 1,000 [facility] 1,000 unit 0-23 Units by ity o f capsule 17:03: mouth [place] 43 daily. Medical Branch Magnesium 2019- Yes Take by [facility] 250 mg Tab 0-23 mouth. ity of 17:03: [place] [address] Medical Branch vitamin B-6 2019-09 Yes 100mg Take 100 [facility] (VITAMIN 0-23 mg by ity of B-6) 100 mg 17:03: mouth [place] tablet 43 daily. Medical Branch CALCIUM 2019-09 Yes Take by [facility] CARBONATE/V 0-23 mouth. ity of ITAMIN D3 17:03: [place] (VITAMIN 43 Medical D-3 ORAL) Branch alcaftadine 2019-[address] in [place] (LASTACAFT) 0-23 each eye. ity of 0.25 % Drop 17:03: [place] [address] Medical Branch CYCLOSPORIN 2019- Yes Place in [facility] [place] [facility] (RESTASIS 0-23 each eye. ity of OPHTHALMIC) 17:03: [place] [address] Medical Branch DOCOSAHEXAN 2019- Yes Take by [facility] vers OIC 0-23 mouth. ity of ACID/EPA 17:03: [place] (FISH OIL 43 Medical ORAL) Branch vitamin E 2019- Yes 1000U Take 1,000 [facility] 1,000 unit 0-23 Units by ity o f capsule 17:03: mouth [place] 43 daily. Medical Branch Magnesium 2019- Yes Take by [facility] 250 mg Tab 0-23 mouth. ity of 17:03: [place] [address] Medical Branch vitamin B-6 2019-09 Yes 100mg Take 100 [facility] (VITAMIN 0-23 mg by ity of B-6) 100 mg 17:03: mouth [place] tablet 43 daily. Medical Branch CALCIUM 2019-09 Yes Take by [facility] CARBONATE/V 0-23 mouth. ity of ITAMIN D3 17:03: [place] (VITAMIN 43 Medical D-3 ORAL) Branch alcaftadine 2019-[address] in [place] (LASTACAFT) 0-23 each eye. ity of 0.25 % Drop 17:03: [place] [address] Medical Branch CYCLOSPORIN 2019-[address] in [place] [facility] (RESTASIS 0-23 each eye. ity of OPHTHALMIC) 17:03: [place] [address] Medical Branch DOCOSAHEXAN 2019-09 Yes Take by [facility] OIC 0-23 mouth. ity of ACID/EPA 17:03: [place] (FISH OIL 43 Medical ORAL) Branch vitamin E 2019-09 Yes 1000U Take 1,000 [facility] 1,000 unit 0-23 Units by ity o f capsule 17:03: mouth [place] 43 daily. Medical Branch Magnesium 2019- Yes Take by [facility] 250 mg Tab 0-23 mouth. ity of 17:03: [place] [address] Medical Branch vitamin B-6 2019-09 Yes 100mg Take 100 [facility] (VITAMIN 0-23 mg by ity of B-6) 100 mg 17:03: mouth [place] tablet 43 daily. Medical Branch CALCIUM 2019-09 Yes Take by [facility] CARBONATE/V 0-23 mouth. ity of ITAMIN D3 17:03: [place] (VITAMIN 43 Medical D-3 ORAL) Branch alcaftadine 2019-[address] in [place] (LASTACAFT) 0-23 each eye. ity of 0.25 % Drop 17:03: [place] [address] Medical Branch CYCLOSPORIN 2019-[address] in [place] [facility] (RESTASIS 0-23 each eye. ity of OPHTHALMIC) 17:03: [place] [address] Medical Branch DOCOSAHEXAN 2019- Yes Take by [facility] vers OIC 0-23 mouth. ity of ACID/EPA 17:03: [place] (FISH OIL 43 Medical ORAL) Branch vitamin E 2019-09 Yes 1000U Take 1,000 [facility] 1,000 unit 0-23 Units by ity o f capsule 17:03: mouth [place] 43 daily. Medical Branch Magnesium 2019- Yes Take by [facility] 250 mg Tab 0-23 mouth. ity of 17:03: [place] [address] Medical Branch vitamin B-6 2019-09 Yes 100mg Take 100 [facility] (VITAMIN 0-23 mg by ity of B-6) 100 mg 17:03: mouth [place] tablet 43 daily. Medical Branch CALCIUM 2019-09 Yes Take by [facility] CARBONATE/V 0-23 mouth. ity of ITAMIN D3 17:03: [place] (VITAMIN 43 Medical D-3 ORAL) Branch alcaftadine 2019-[address] in [place] (LASTACAFT) 0-23 each eye. ity of 0.25 % Drop 17:03: [place] [address] Medical Branch CYCLOSPORIN 2019-[address] in [place] [facility] (RESTASIS 0-23 each eye. ity of OPHTHALMIC) 17:03: [place] [address] Medical Branch DOCOSAHEXAN 2019-09 Yes Take by [facility] vers OIC 0-23 mouth. ity of ACID/EPA 17:03: [place] (FISH OIL 43 Medical ORAL) Branch vitamin E 2019-09 Yes 1000U Take 1,000 [facility] 1,000 unit 0-23 Units by ity o f capsule 17:03: mouth [place] 43 daily. Medical Branch Magnesium 2019- Yes Take by [facility] 250 mg Tab 0-23 mouth. ity of 17:03: [place] [address] Medical Branch vitamin B-6 2019-09 Yes 100mg Take 100 [facility] (VITAMIN 0-23 mg by ity of B-6) 100 mg 17:03: mouth [place] tablet 43 daily. Medical Branch CALCIUM 2019-09 Yes Take by [facility] CARBONATE/V 0-23 mouth. ity of ITAMIN D3 17:03: [place] (VITAMIN 43 Medical D-3 ORAL) Branch alcaftadine 2019-[address] in [facility] [place] (LASTACAFT) 0-23 each eye. ity of 0.25 % Drop 17:03: [place] [address] Medical Branch CYCLOSPORIN 2019-[address] in [place] [facility] (RESTASIS 0-23 each eye. ity of OPHTHALMIC) 17:03: [place] [address] Medical Branch DOCOSAHEXAN 2019- Yes Take by [facility] vers OIC 0-23 mouth. ity of ACID/EPA 17:03: [place] (FISH OIL 43 Medical ORAL) Branch vitamin E 2019- Yes 1000U Take 1,000 [facility] 1,000 unit 0-23 Units by ity o f capsule 17:03: mouth [place] 43 daily. Medical Branch Magnesium 2019- Yes Take by [facility] 250 mg Tab 0-23 mouth. ity of 17:03: [place] [address] Medical Branch vitamin B-6 2019- Yes 100mg Take 100 [facility] (VITAMIN 0-23 mg by ity of B-6) 100 mg 17:03: mouth [place] tablet 43 daily. Medical Branch CALCIUM 2019-09 Yes Take by [facility] CARBONATE/V 0-23 mouth. ity of ITAMIN D3 17:03: [place] (VITAMIN 43 Medical D-3 ORAL) Branch alcaftadine 2019-[address] in [place] (LASTACAFT) 0-23 each eye. ity of 0.25 % Drop 17:03: [place] [address] Medical Branch CYCLOSPORIN 2019-[address] in [place] [facility] (RESTASIS 0-23 each eye. ity of OPHTHALMIC) 17:03: [place] [address] Medical Branch DOCOSAHEXAN 2019-09 Yes Take by [facility] vers OIC 0-23 mouth. ity of ACID/EPA 17:03: [place] (FISH OIL 43 Medical ORAL) Branch vitamin E 2019-09 Yes 1000U Take 1,000 [facility] 1,000 unit 0-23 Units by ity o f capsule 17:03: mouth [place] 43 daily. Medical Branch Magnesium 2019- Yes Take by [facility] 250 mg Tab 0-23 mouth. ity of 17:03: [place] [address] Medical Branch vitamin B-6 2019- Yes 100mg Take 100 [facility] (VITAMIN 0-23 mg by ity of B-6) 100 mg 17:03: mouth [place] tablet 43 daily. Medical Branch CALCIUM 2019- Yes Take by [facility] CARBONATE/V 0-23 mouth. ity of ITAMIN D3 17:03: [place] (VITAMIN 43 Medical D-3 ORAL) Branch alcaftadine 2019-[address] in [place] (LASTACAFT) 0-23 each eye. ity of 0.25 % Drop 17:03: [place] [address] Medical Branch CYCLOSPORIN 2019-[address] in [place] [facility] (RESTASIS 0-23 each eye. ity of OPHTHALMIC) 17:03: [place] [address] Medical Branch DOCOSAHEXAN 2019- Yes Take by [facility] vers OIC 0-23 mouth. ity of ACID/EPA 17:03: [place] (FISH OIL 43 Medical ORAL) Branch vitamin E 2019- Yes 1000U Take 1,000 [facility] 1,000 unit 0-23 Units by ity o f capsule 17:03: mouth [place] 43 daily. Medical Branch Magnesium 2019- Yes Take by [facility] 250 mg Tab 0-23 mouth. ity of 17:03: [place] [address] Medical Branch vitamin B-6 2019-09 Yes 100mg Take 100 [facility] (VITAMIN 0-23 mg by ity of B-6) 100 mg 17:03: mouth [place] tablet 43 daily. Medical Branch CALCIUM 2019-09 Yes Take by [facility] CARBONATE/V 0-23 mouth. ity of ITAMIN D3 17:03: [place] (VITAMIN 43 Medical D-3 ORAL) Branch alcaftadine 2019-[address] in [place] (LASTACAFT) 0-23 each eye. ity of 0.25 % Drop 17:03: [place] [address] Medical Branch CYCLOSPORIN 2019-[address] in [place] [facility] (RESTASIS 0-23 each eye. ity of OPHTHALMIC) 17:03: [place] [address] Medical Branch DOCOSAHEXAN 2019-09 Yes Take by [facility] vers OIC 0-23 mouth. ity of ACID/EPA 17:03: [place] (FISH OIL 43 Medical ORAL) Branch vitamin E 2019-09 Yes 1000U Take 1,000 [facility] 1,000 unit 0-23 Units by ity o f capsule 17:03: mouth [place] 43 daily. Medical Branch Magnesium 2020- Yes Take by [facility] 250 mg Tab 0-23 mouth. ity of 17:03: [place] [address] Medical Branch vitamin B-6 2019- Yes 100mg Take 100 [facility] (VITAMIN 0-23 mg by ity of B-6) 100 mg 17:03: mouth [place] tablet 43 daily. Medical Branch CALCIUM 2019- Yes Take by [facility] CARBONATE/V 0-23 mouth. ity of ITAMIN D3 17:03: [place] (VITAMIN 43 Medical D-3 ORAL) Branch alcaftadine 2019-[address] in [place] (LASTACAFT) 0-23 each eye. ity of 0.25 % Drop 17:03: [place] [address] Medical Branch CYCLOSPORIN 2020- Yes Place in [place] [facility] (RESTASIS 0-23 each eye. ity of OPHTHALMIC) 17:03: [place] [address] Medical Branch DOCOSAHEXAN 2019-09 Yes Take by [facility] vers OIC 0-23 mouth. ity of ACID/EPA 17:03: [place] (FISH OIL 43 Medical ORAL) Branch vitamin E 2019- Yes 1000U Take 1,000 U nivers 1,000 unit 0-23 Units by ity o f capsule 17:03: mouth [place] 43 daily. [facility] Magnesium 2019- Yes Take by [facility] rs 250 mg Tab 0-23 mouth. ity of 17:03: [place] [address] [facility] Branch vitamin B-6 2019-09 Yes 100mg Take 100 U nivers (VITAMIN 0-23 mg by ity of B-6) 100 mg 17:03: mouth [place] tablet 43 daily. Medical Branch CALCIUM 2019- Yes Take by [facility] CARBONATE/V 0-23 mouth. ity of ITAMIN D3 17:03: [place] (VITAMIN 43 Medical D-3 ORAL) Branch alcaftadine 2019-[address] in [facility] [place] (LASTACAFT) 0-23 each eye. ity of 0.25 % Drop 17:03: [place] [address] [facility] CYCLOSPORIN 2019-[address] [facility] [place] [facility] (RESTASIS 0-23 each eye. ity of OPHTHALMIC) 17:03: [place] [address] [facility] Branch DOCOSAHEXAN 2019-09 Yes Take by Uni vers OIC 0-23 mouth. ity of ACID/EPA 17:03: [place] (FISH OIL 43 Medical ORAL) Branch vitamin E 2019-09 Yes 1000U Take 1,000 U nivers 1,000 unit 0-23 Units by ity o f capsule 17:03: mouth [place] 43 daily. [facility] Branch Magnesium 2019- Yes Take by [facility] 250 mg Tab 0-23 mouth. ity of 17:03: [place] [address] [facility] Branch vitamin B-6 2019-09 Yes 100mg Take 100 [facility] (VITAMIN 0-23 mg by ity of B-6) 100 mg 17:03: mouth [place] tablet 43 daily. Medical Branch CALCIUM 2019- Yes Take by [facility] CARBONATE/V 0-23 mouth. ity of ITAMIN D3 17:03: [place] (VITAMIN 43 Medical D-3 ORAL) Branch alcaftadine 2019-[address] [facility] [place] (LASTACAFT) 0-23 each eye. ity of 0.25 % Drop 17:03: [place] [address] [facility] CYCLOSPORIN 2020- Yes Place in [place] [facility] (RESTASIS 0-23 each eye. ity of OPHTHALMIC) 17:03: [place] [address] [facility] DOCOSAHEXAN 2019- Yes Take by Uni vers OIC 0-23 mouth. ity of ACID/EPA 17:03: [place] (FISH OIL 43 Medical ORAL) Branch vitamin E 2019- Yes 1000U Take 1,000 U nivers 1,000 unit 0-23 Units by ity o f capsule 17:03: mouth [place] 43 daily. [facility] Branch Magnesium 2020- Yes Take by [facility] 250 mg Tab 0-23 mouth. ity of 17:03: [place] [address] [facility] Branch vitamin B-6 2019-09 Yes 100mg Take 100 [facility] (VITAMIN 0-23 mg by ity of B-6) 100 mg 17:03: mouth [place] tablet 43 daily. Medical Branch CALCIUM 2019- Yes Take by [facility] CARBONATE/V 0-23 mouth. ity of ITAMIN D3 17:03: [place] (VITAMIN 43 Medical D-3 ORAL) Branch alcaftadine 2019-[address] [facility] [place] (LASTACAFT) 0-23 each eye. ity of 0.25 % Drop 17:03: [place] [address] [facility] CYCLOSPORIN 2019- Yes Place in [place] (RESTASIS 0-23 each eye. ity of OPHTHALMIC) 17:03: [place] [address] [facility] DOCOSAHEXAN 2019- Yes Take by Uni vers OIC 0-23 mouth. ity of ACID/EPA 17:03: [place] (FISH OIL 43 Medical ORAL) Branch vitamin E 2020- Yes 1000U Take 1,000 U nivers 1,000 unit 0-23 Units by ity o f capsule 17:03: mouth [place] 43 daily. [facility] Branch Magnesium 2020- Yes Take by [facility] 250 mg Tab 0-23 mouth. ity of 17:03: [place] [address] [facility] vitamin B-6 2019- Yes 100mg Take 100 [facility] (VITAMIN 0-23 mg by ity of B-6) 100 mg 17:03: mouth [place] tablet 43 daily. Medical Branch CALCIUM 2020- Yes Take by [facility] CARBONATE/V 0-23 mouth. ity of ITAMIN D3 17:03: [place] (VITAMIN 43 Medical D-3 ORAL) Branch alcaftadine 2020- Yes Place in [place] (LASTACAFT) 0-23 each eye. ity of 0.25 % Drop 17:03: [place] [address] [facility] CYCLOSPORIN 2019- Yes Place in [place] (RESTASIS 0-23 each eye. ity of OPHTHALMIC) 17:03: [place] [address] [facility] DOCOSAHEXAN 2019- Yes Take by Uni vers OIC 0-23 mouth. ity of ACID/EPA 17:03: [place] (FISH OIL 43 Medical ORAL) Branch vitamin E 2019- Yes 1000U Take 1,000 U nivers 1,000 unit 0-23 Units by ity o f capsule 17:03: mouth [place] 43 daily. [facility] Branch Magnesium 2019- Yes Take by [facility] 250 mg Tab 0-23 mouth. ity of 17:03: [place] [address] [facility] Branch vitamin B-6 2019- Yes 100mg Take 100 [facility] (VITAMIN 0-23 mg by ity of B-6) 100 mg 17:03: mouth [place] tablet 43 daily. Medical Branch CALCIUM 2019- Yes Take by [facility] CARBONATE/V 0-23 mouth. ity of ITAMIN D3 17:03: [place] (VITAMIN 43 Medical D-3 ORAL) Branch alcaftadine 2019-[address] [facility] [place] (LASTACAFT) 0-23 each eye. ity of 0.25 % Drop 17:03: [place] [address] [facility] CYCLOSPORIN 2019-[address] in [place] (RESTASIS 0-23 each eye. ity of OPHTHALMIC) 17:03: [place] [address] [facility] DOCOSAHEXAN 2019- Yes Take by Uni vers OIC 0-23 mouth. ity of ACID/EPA 17:03: [place] (FISH OIL 43 Medical ORAL) Branch vitamin E 2019- Yes 1000U Take 1,000 U nivers 1,000 unit 0-23 Units by ity o f capsule 17:03: mouth [place] 43 daily. [facility] Branch Magnesium 2020- Yes Take by [facility] 250 mg Tab 0-23 mouth. ity of 17:03: [place] [address] [facility] vitamin B-6 2019- Yes 100mg Take 100 [facility] (VITAMIN 0-23 mg by ity of B-6) 100 mg 17:03: mouth [place] tablet 43 daily. Medical Branch CALCIUM 2020- Yes Take by [facility] CARBONATE/V 0-23 mouth. ity of ITAMIN D3 17:03: [place] (VITAMIN 43 Medical D-3 ORAL) Branch alcaftadine 2020- Yes Place in [place] (LASTACAFT) 0-23 each eye. ity of 0.25 % Drop 17:03: [place] [address] [facility] CYCLOSPORIN 2019- Yes Place in [place] (RESTASIS 0-23 each eye. ity of OPHTHALMIC) 17:03: [place] [address] [facility] DOCOSAHEXAN 2019- Yes Take by Uni vers OIC 0-23 mouth. ity of ACID/EPA 17:03: [place] (FISH OIL 43 Medical ORAL) Branch vitamin E 2019-09 Yes 1000U Take 1,000 U nivers 1,000 unit 0-23 Units by ity o f capsule 17:03: mouth [place] 43 daily. [facility] Branch Magnesium 2019- Yes Take by [facility] rs 250 mg Tab 0-23 mouth. ity of 17:03: [place] [address] [facility] vitamin B-6 2019-09 Yes 100mg Take 100 [facility] (VITAMIN 0-23 mg by ity of B-6) 100 mg 17:03: mouth [place] tablet 43 daily. Medical Branch CALCIUM 2019- Yes Take by [facility] CARBONATE/V 0-23 mouth. ity of ITAMIN D3 17:03: [place] (VITAMIN 43 Medical D-3 ORAL) Branch alcaftadine 2019-[address] [facility] [place] (LASTACAFT) 0-23 each eye. ity of 0.25 % Drop 17:03: [place] [address] [facility] CYCLOSPORIN 2019-[address] in [place] (RESTASIS 0-23 each eye. ity of OPHTHALMIC) 17:03: [place] [address] [facility] DOCOSAHEXAN 2019- Yes Take by Uni vers OIC 0-23 mouth. ity of ACID/EPA 17:03: [place] (FISH OIL 43 Medical ORAL) Branch vitamin E 2019- Yes 1000U Take 1,000 U nivers 1,000 unit 0-23 Units by ity o f capsule 17:03: mouth [place] 43 daily. [facility] Branch Magnesium 2019- Yes Take by [facility] 250 mg Tab 0-23 mouth. ity of 17:03: [place] [address] [facility] Branch vitamin B-6 2019- Yes 100mg Take 100 [facility] (VITAMIN 0-23 mg by ity of B-6) 100 mg 17:03: mouth [place] tablet 43 daily. Medical Branch CALCIUM 2020- Yes Take by [facility] CARBONATE/V 0-23 mouth. ity of ITAMIN D3 17:03: [place] (VITAMIN 43 Medical D-3 ORAL) Branch alcaftadine 2020- Yes Place in [place] (LASTACAFT) 0-23 each eye. ity of 0.25 % Drop 17:03: [place] [address] [facility] CYCLOSPORIN 2019- Yes Place in [place] (RESTASIS 0-23 each eye. ity of OPHTHALMIC) 17:03: [place] [address] [facility] DOCOSAHEXAN 2019- Yes Take by Uni vers OIC 0-23 mouth. ity of ACID/EPA 17:03: [place] (FISH OIL 43 Medical ORAL) Branch vitamin E 2019-09 Yes 1000U Take 1,000 U nivers 1,000 unit 0-23 Units by ity o f capsule 17:03: mouth [place] 43 daily. Medical Branch Magnesium 2019- Yes Take by [facility] 250 mg Tab 0-23 mouth. ity of 17:03: [place] [address] [facility] Branch vitamin B-6 2019- Yes 100mg Take 100 [facility] (VITAMIN 0-23 mg by ity of B-6) 100 mg 17:03: mouth [place] tablet 43 daily. Medical Branch CALCIUM 2019- Yes Take by [facility] CARBONATE/V 0-23 mouth. ity of ITAMIN D3 17:03: [place] (VITAMIN 43 Medical D-3 ORAL) Branch alcaftadine 2019-[address] in [place] (LASTACAFT) 0-23 each eye. ity of 0.25 % Drop 17:03: [place] [address] [facility] CYCLOSPORIN 2019- Yes Place in [place] (RESTASIS 0-23 each eye. ity of OPHTHALMIC) 17:03: [place] [address] [facility] DOCOSAHEXAN 2019- Yes Take by [facility] vers OIC 0-23 mouth. ity of ACID/EPA 17:03: [place] (FISH OIL 43 Medical ORAL) Branch vitamin E 2019- Yes 1000U Take 1,000 U nivers 1,000 unit 0-23 Units by ity o f capsule 17:03: mouth [place] 43 daily. Medical Branch Magnesium 2020- Yes Take by [facility] 250 mg Tab 0-23 mouth. ity of 17:03: [place] [address] [facility] Branch vitamin B-6 2019- Yes 100mg Take 100 [facility] (VITAMIN 0-23 mg by ity of B-6) 100 mg 17:03: mouth [place] tablet 43 daily. Medical Branch CALCIUM 2019- Yes Take by [facility] CARBONATE/V 0-23 mouth. ity of ITAMIN D3 17:03: [place] (VITAMIN 43 Medical D-3 ORAL) Branch alcaftadine 2019-[address] in [place] (LASTACAFT) 0-23 each eye. ity of 0.25 % Drop 17:03: [place] [address] [facility] CYCLOSPORIN 2019- Yes Place in [place] (RESTASIS 0-23 each eye. ity of OPHTHALMIC) 17:03: [place] [address] [facility] DOCOSAHEXAN 2019-09 Yes Take by [facility] vers OIC 0-23 mouth. ity of ACID/EPA 17:03: [place] (FISH OIL 43 Medical ORAL) Branch vitamin E 2019-09 Yes 1000U Take 1,000 U nivers 1,000 unit 0-23 Units by ity o f capsule 17:03: mouth [place] 43 daily. Medical Branch Magnesium 2019- Yes Take by [facility] 250 mg Tab 0-23 mouth. ity of 17:03: [place] [address] [facility] Branch vitamin B-6 2019-09 Yes 100mg Take 100 [facility] (VITAMIN 0-23 mg by ity of B-6) 100 mg 17:03: mouth [place] tablet 43 daily. Medical Branch CALCIUM 2019-09 Yes Take by [facility] CARBONATE/V 0-23 mouth. ity of ITAMIN D3 17:03: [place] (VITAMIN 43 Medical D-3 ORAL) Branch alcaftadine 2019-[address] in [place] (LASTACAFT) 0-23 each eye. ity of 0.25 % Drop 17:03: [place] [address] [facility] CYCLOSPORIN 2019-[address] in [place] (RESTASIS 0-23 each eye. ity of OPHTHALMIC) 17:03: [place] [address] [facility] DOCOSAHEXAN 2019- Yes Take by [facility] vers OIC 0-23 mouth. ity of ACID/EPA 17:03: [place] (FISH OIL 43 Medical ORAL) Branch vitamin E 2019- Yes 1000U Take 1,000 U nivers 1,000 unit 0-23 Units by ity o f capsule 17:03: mouth [place] 43 daily. Medical Branch Magnesium 2020- Yes Take by [facility] 250 mg Tab 0-23 mouth. ity of 17:03: [place] [address] [facility] vitamin B-6 2020- Yes 100mg Take 100 [facility] (VITAMIN 0-23 mg by ity of B-6) 100 mg 17:03: mouth [place] tablet 43 daily. Medical Branch CALCIUM 2019- Yes Take by [facility] CARBONATE/V 0-23 mouth. ity of ITAMIN D3 17:03: [place] (VITAMIN 43 Medical D-3 ORAL) Branch alcaftadine 2019- Yes Place in [place] (LASTACAFT) 0-23 each eye. ity of 0.25 % Drop 17:03: [place] [address] [facility] CYCLOSPORIN 2019- Yes Place in [place] (RESTASIS 0-23 each eye. ity of OPHTHALMIC) 17:03: [place] [address] [facility] DOCOSAHEXAN 2019-09 Yes Take by Uni vers OIC 0-23 mouth. ity of ACID/EPA 17:03: [place] (FISH OIL 43 Medical ORAL) Branch vitamin E 2019-09 Yes 1000U Take 1,000 U nivers 1,000 unit 0-23 Units by ity o f capsule 17:03: mouth [place] 43 daily. Medical Branch Magnesium 2019- Yes Take by [facility] rs 250 mg Tab 0-23 mouth. ity of 17:03: [place] [address] [facility] Branch vitamin B-6 2019-09 Yes 100mg Take 100 U n[facility] (VITAMIN 0-23 mg by ity of B-6) 100 mg 17:03: mouth [place] tablet 43 daily. Medical Branch CALCIUM 2019- Yes Take by [facility] CARBONATE/V 0-23 mouth. ity of ITAMIN D3 17:03: [place] (VITAMIN 43 Medical D-3 ORAL) Branch alcaftadine 2019-[address] in [place] (LASTACAFT) 0-23 each eye. ity of 0.25 % Drop 17:03: [place] [address] [facility] CYCLOSPORIN 2019- Yes Place in [place] (RESTASIS 0-23 each eye. ity of OPHTHALMIC) 17:03: [place] [address] [facility] Branch DOCOSAHEXAN 2019- Yes Take by Uni vers OIC 0-23 mouth. ity of ACID/EPA 17:03: [place] (FISH OIL 43 Medical ORAL) Branch vitamin E 2020- Yes 1000U Take 1,000 U nivers 1,000 unit 0-23 Units by ity o f capsule 17:03: mouth [place] 43 daily. Medical Branch Magnesium 2020- Yes Take by [facility] rs 250 mg Tab 0-23 mouth. ity of 17:03: [place] [address] [facility] Branch vitamin B-6 2019- Yes 100mg Take 100 U n[facility] (VITAMIN 0-23 mg by ity of B-6) 100 mg 17:03: mouth [place] tablet 43 daily. Medical Branch CALCIUM 2019- Yes Take by [facility] CARBONATE/V 0-23 mouth. ity of ITAMIN D3 17:03: [place] (VITAMIN 43 Medical D-3 ORAL) Branch alcaftadine 2019-[address] in [place] (LASTACAFT) 0-23 each eye. ity of 0.25 % Drop 17:03: [place] [address] [facility] CYCLOSPORIN 2019-[address] in [place] (RESTASIS 0-23 each eye. ity of OPHTHALMIC) 17:03: [place] [address] [facility] Branch DOCOSAHEXAN 2019-09 Yes Take by [facility] vers OIC 0-23 mouth. ity of ACID/EPA 17:03: [place] (FISH OIL 43 Medical ORAL) Branch vitamin E 2019-09 Yes 1000U Take 1,000 U nivers 1,000 unit 0-23 Units by ity o f capsule 17:03: mouth [place] 43 daily. Medical Branch Magnesium 2019- Yes Take by [facility] 250 mg Tab 0-23 mouth. ity of 17:03: [place] [address] [facility] vitamin B-6 2019-09 Yes 100mg Take 100 U [facility] (VITAMIN 0-23 mg by ity of B-6) 100 mg 17:03: mouth [place] tablet 43 daily. Medical Branch CALCIUM 2019-09 Yes Take by [facility] CARBONATE/V 0-23 mouth. ity of ITAMIN D3 17:03: [place] (VITAMIN 43 Medical D-3 ORAL) Branch alcaftadine 2019-[address] in [place] (LASTACAFT) 0-23 each eye. ity of 0.25 % Drop 17:03: [place] [address] [facility] CYCLOSPORIN 2019- Yes Place in [place] (RESTASIS 0-23 each eye. ity of OPHTHALMIC) 17:03: [place] [address] [facility] Branch DOCOSAHEXAN 2019- Yes Take by [facility] vers OIC 0-23 mouth. ity of ACID/EPA 17:03: [place] (FISH OIL 43 Medical ORAL) Branch vitamin E 2019- Yes 1000U Take 1,000 U nivers 1,000 unit 0-23 Units by ity o f capsule 17:03: mouth [place] 43 daily. Medical Branch Magnesium 2020- Yes Take by [facility] 250 mg Tab 0-23 mouth. ity of 17:03: [place] [address] [facility] Branch vitamin B-6 2019- Yes 100mg Take 100 U [facility] (VITAMIN 0-23 mg by ity of B-6) 100 mg 17:03: mouth [place] tablet 43 daily. Medical Branch CALCIUM 2019- Yes Take by [facility] CARBONATE/V 0-23 mouth. ity of ITAMIN D3 17:03: [place] (VITAMIN 43 Medical D-3 ORAL) Branch alcaftadine 2019-[address] in [place] (LASTACAFT) 0-23 each eye. ity of 0.25 % Drop 17:03: [place] [address] [facility] CYCLOSPORIN 2019-[address] in [place] (RESTASIS 0-23 each eye. ity of OPHTHALMIC) 17:03: [place] [address] [facility] DOCOSAHEXAN 2019-09 Yes Take by [facility] vers OIC 0-23 mouth. ity of ACID/EPA 17:03: [place] (FISH OIL 43 Medical ORAL) Branch vitamin E 2019-09 Yes 1000U Take 1,000 U nivers 1,000 unit 0-23 Units by ity o f capsule 17:03: mouth [place] 43 daily. Medical Branch Magnesium 2019- Yes Take by [facility] 250 mg Tab 0-23 mouth. ity of 17:03: [place] [address] [facility] Branch vitamin B-6 2019-09 Yes 100mg Take 100 U n[facility] (VITAMIN 0-23 mg by ity of B-6) 100 mg 17:03: mouth [place] tablet 43 daily. Medical Branch CALCIUM 2019-09 Yes Take by [facility] CARBONATE/V 0-23 mouth. ity of ITAMIN D3 17:03: [place] (VITAMIN 43 Medical D-3 ORAL) Branch alcaftadine 2019-[address] in [place] (LASTACAFT) 0-23 each eye. ity of 0.25 % Drop 17:03: [place] [address] [facility] CYCLOSPORIN 2019- Yes Place in [place] (RESTASIS 0-23 each eye. ity of OPHTHALMIC) 17:03: [place] [address] [facility] Branch DOCOSAHEXAN 2019- Yes Take by [facility] vers OIC 0-23 mouth. ity of ACID/EPA 17:03: [place] (FISH OIL 43 Medical ORAL) Branch vitamin E 2019- Yes 1000U Take 1,000 U nivers 1,000 unit 0-23 Units by ity o f capsule 17:03: mouth [place] 43 daily. Medical Branch Magnesium 2019- Yes Take by [facility] 250 mg Tab 0-23 mouth. ity of 17:03: [place] [address] [facility] Branch vitamin B-6 2019-09 Yes 100mg Take 100 [facility] (VITAMIN 0-23 mg by ity of B-6) 100 mg 17:03: mouth [place] tablet 43 daily. Medical Branch CALCIUM 2019-09 Yes Take by [facility] CARBONATE/V 0-23 mouth. ity of ITAMIN D3 17:03: [place] (VITAMIN 43 Medical D-3 ORAL) Branch alcaftadine 2019-[address] in [place] (LASTACAFT) 0-23 each eye. ity of 0.25 % Drop 17:03: [place] [address] [facility] CYCLOSPORIN 2019-[address] in [place] (RESTASIS 0-23 each eye. ity of OPHTHALMIC) 17:03: [place] [address] [facility] DOCOSAHEXAN 2019-09 Yes Take by [facility] vers OIC 0-23 mouth. ity of ACID/EPA 17:03: [place] (FISH OIL 43 Medical ORAL) Branch vitamin E 2019-09 Yes 1000U Take 1,000 U nivers 1,000 unit 0-23 Units by ity o f capsule 17:03: mouth [place] 43 daily. [facility] Branch Magnesium 2019- Yes Take by [facility] 250 mg Tab 0-23 mouth. ity of 17:03: [place] [address] [facility] Branch vitamin B-6 2019-09 Yes 100mg Take 100 [facility] (VITAMIN 0-23 mg by ity of B-6) 100 mg 17:03: mouth [place] tablet 43 daily. Medical Branch CALCIUM 2019-09 Yes Take by [facility] CARBONATE/V 0-23 mouth. ity of ITAMIN D3 17:03: [place] (VITAMIN 43 Medical D-3 ORAL) Branch alcaftadine 2019-[address] in [place] (LASTACAFT) 0-23 each eye. ity of 0.25 % Drop 17:03: [place] [address] [facility] CYCLOSPORIN 2019-[address] in [place] (RESTASIS 0-23 each eye. ity of OPHTHALMIC) 17:03: [place] [address] [facility] Branch DOCOSAHEXAN 2019- Yes Take by [facility] vers OIC 0-23 mouth. ity of ACID/EPA 17:03: [place] (FISH OIL 43 Medical ORAL) Branch vitamin E 2019-09 Yes 1000U Take 1,000 U nivers 1,000 unit 0-23 Units by ity o f capsule 17:03: mouth [place] 43 daily. Medical Branch Magnesium 2019- Yes Take by [facility] 250 mg Tab 0-23 mouth. ity of 17:03: [place] [address] [facility] Branch vitamin B-6 2019-09 Yes 100mg Take 100 [facility] (VITAMIN 0-23 mg by ity of B-6) 100 mg 17:03: mouth [place] tablet 43 daily. Medical Branch CALCIUM 2019-09 Yes Take by [facility] CARBONATE/V 0-23 mouth. ity of ITAMIN D3 17:03: [place] (VITAMIN 43 Medical D-3 ORAL) Branch alcaftadine 2019-[address] in [place] (LASTACAFT) 0-23 each eye. ity of 0.25 % Drop 17:03: [place] [address] [facility] CYCLOSPORIN 2019-[address] in [place] (RESTASIS 0-23 each eye. ity of OPHTHALMIC) 17:03: [place] [address] [facility] Branch DOCOSAHEXAN 2019-09 Yes Take by [facility] vers OIC 0-23 mouth. ity of ACID/EPA 17:03: [place] (FISH OIL 43 Medical ORAL) Branch vitamin E 2019-09 Yes 1000U Take 1,000 U nivers 1,000 unit 0-23 Units by ity o f capsule 17:03: mouth [place] 43 daily. Medical Branch Magnesium 2019- Yes Take by [facility] 250 mg Tab 0-23 mouth. ity of 17:03: [place] [address] [facility] Branch vitamin B-6 2019-09 Yes 100mg Take 100 [facility] (VITAMIN 0-23 mg by ity of B-6) 100 mg 17:03: mouth [place] tablet 43 daily. Medical Branch CALCIUM 2019-09 Yes Take by [facility] CARBONATE/V 0-23 mouth. ity of ITAMIN D3 17:03: [place] (VITAMIN 43 Medical D-3 ORAL) Branch alcaftadine 2019-[address] in [place] (LASTACAFT) 0-23 each eye. ity of 0.25 % Drop 17:03: [place] [address] [facility] CYCLOSPORIN 2019-[address] in [place] (RESTASIS 0-23 each eye. ity of OPHTHALMIC) 17:03: [place] [address] [facility] Branch DOCOSAHEXAN 2019- Yes Take by [facility] vers OIC 0-23 mouth. ity of ACID/EPA 17:03: [place] (FISH OIL 43 Medical ORAL) Branch vitamin E 2019- Yes 1000U Take 1,000 U nivers 1,000 unit 0-23 Units by ity o f capsule 17:03: mouth [place] 43 daily. Medical Branch Magnesium 2019- Yes Take by [facility] 250 mg Tab 0-23 mouth. ity of 17:03: [place] [address] [facility] Branch vitamin B-6 2019- Yes 100mg Take 100 [facility] (VITAMIN 0-23 mg by ity of B-6) 100 mg 17:03: mouth [place] tablet 43 daily. Medical Branch CALCIUM 2019-09 Yes Take by [facility] CARBONATE/V 0-23 mouth. ity of ITAMIN D3 17:03: [place] (VITAMIN 43 Medical D-3 ORAL) Branch alcaftadine 2019-[address] in [place] (LASTACAFT) 0-23 each eye. ity of 0.25 % Drop 17:03: [place] [address] [facility] CYCLOSPORIN 2019-[address] in [place] (RESTASIS 0-23 each eye. ity of OPHTHALMIC) 17:03: [place] [address] [facility] DOCOSAHEXAN 2019-09 Yes Take by [facility] vers OIC 0-23 mouth. ity of ACID/EPA 17:03: [place] (FISH OIL 43 Medical ORAL) Branch vitamin E 2019-09 Yes 1000U Take 1,000 U nivers 1,000 unit 0-23 Units by ity o f capsule 17:03: mouth [place] 43 daily. Medical Branch Magnesium 2019- Yes Take by [facility] rs 250 mg Tab 0-23 mouth. ity of 17:03: [place] [address] [facility] vitamin B-6 2019- Yes 100mg Take 100 [facility] (VITAMIN 0-23 mg by ity of B-6) 100 mg 17:03: mouth [place] tablet 43 daily. Medical Branch CALCIUM 2019- Yes Take by [facility] CARBONATE/V 0-23 mouth. ity of ITAMIN D3 17:03: [place] (VITAMIN 43 Medical D-3 ORAL) Branch alcaftadine 2019-[address] in [place] (LASTACAFT) 0-23 each eye. ity of 0.25 % Drop 17:03: [place] [address] [facility] CYCLOSPORIN 2019-[address] in [place] [facility] (RESTASIS 0-23 each eye. ity of OPHTHALMIC) 17:03: [place] [address] [facility] DOCOSAHEXAN 2019- Yes Take by [facility] vers OIC 0-23 mouth. ity of ACID/EPA 17:03: [place] (FISH OIL 43 Medical ORAL) Branch vitamin E 2019- Yes 1000U Take 1,000 U nivers 1,000 unit 0-23 Units by ity o f capsule 17:03: mouth [place] 43 daily. Medical Branch Magnesium 2019- Yes Take by [facility] rs 250 mg Tab 0-23 mouth. ity of 17:03: [place] [address] [facility] vitamin B-6 2019-09 Yes 100mg Take 100 [facility] (VITAMIN 0-23 mg by ity of B-6) 100 mg 17:03: mouth [place] tablet 43 daily. Medical Branch CALCIUM 2019-09 Yes Take by [facility] CARBONATE/V 0-23 mouth. ity of ITAMIN D3 17:03: [place] (VITAMIN 43 Medical D-3 ORAL) Branch alcaftadine 2019-[address] in [place] (LASTACAFT) 0-23 each eye. ity of 0.25 % Drop 17:03: [place] [address] [facility] CYCLOSPORIN 2019-[address] in [place] [facility] (RESTASIS 0-23 each eye. ity of OPHTHALMIC) 17:03: [place] [address] [facility] Branch DOCOSAHEXAN 2019-09 Yes Take by [facility] vers OIC 0-23 mouth. ity of ACID/EPA 17:03: [place] (FISH OIL 43 Medical ORAL) Branch vitamin E 2019-09 Yes 1000U Take 1,000 U nivers 1,000 unit 0-23 Units by ity o f capsule 17:03: mouth [place] 43 daily. Medical Branch Magnesium 2020- Yes Take by [facility] rs 250 mg Tab 0-23 mouth. ity of 17:03: [place] [address] [facility] vitamin B-6 2019- Yes 100mg Take 100 [facility] (VITAMIN 0-23 mg by ity of B-6) 100 mg 17:03: mouth [place] tablet 43 daily. Medical Branch CALCIUM 2019- Yes Take by [facility] CARBONATE/V 0-23 mouth. ity of ITAMIN D3 17:03: [place] (VITAMIN 43 Medical D-3 ORAL) Branch alcaftadine 2019-[address] in [place] (LASTACAFT) 0-23 each eye. ity of 0.25 % Drop 17:03: [place] [address] [facility] CYCLOSPORIN 2020- Yes Place in [place] [facility] (RESTASIS 0-23 each eye. ity of OPHTHALMIC) 17:03: [place] [address] [facility] Branch DOCOSAHEXAN 2019-09 Yes Take by [facility] vers OIC 0-23 mouth. ity of ACID/EPA 17:03: [place] (FISH OIL 43 Medical ORAL) Branch vitamin E 2019- Yes 1000U Take 1,000 U nivers 1,000 unit 0-23 Units by ity o f capsule 17:03: mouth [place] 43 daily. Medical Branch Magnesium 2019- Yes Take by [facility] rs 250 mg Tab 0-23 mouth. ity of 17:03: [place] [address] [facility] vitamin B-6 2019-09 Yes 100mg Take 100 [facility] (VITAMIN 0-23 mg by ity of B-6) 100 mg 17:03: mouth [place] tablet 43 daily. Medical Branch CALCIUM 2019- Yes Take by [facility] CARBONATE/V 0-23 mouth. ity of ITAMIN D3 17:03: [place] (VITAMIN 43 Medical D-3 ORAL) Branch alcaftadine 2019-[address] in [place] (LASTACAFT) 0-23 each eye. ity of 0.25 % Drop 17:03: [place] [address] [facility] CYCLOSPORIN 2019-[address] in [place] [facility] (RESTASIS 0-23 each eye. ity of OPHTHALMIC) 17:03: [place] [address] [facility] Branch DOCOSAHEXAN 2019-09 Yes Take by [facility] vers OIC 0-23 mouth. ity of ACID/EPA 17:03: [place] (FISH OIL 43 Medical ORAL) Branch vitamin E 2019-09 Yes 1000U Take 1,000 U nivers 1,000 unit 0-23 Units by ity o f capsule 17:03: mouth [place] 43 daily. Medical Branch Magnesium 2019- Yes Take by [facility] 250 mg Tab 0-23 mouth. ity of 17:03: [place] [address] [facility] vitamin B-6 2019-09 Yes 100mg Take 100 [facility] (VITAMIN 0-23 mg by ity of B-6) 100 mg 17:03: mouth [place] tablet 43 daily. Medical Branch CALCIUM 2019- Yes Take by [facility] CARBONATE/V 0-23 mouth. ity of ITAMIN D3 17:03: [place] (VITAMIN 43 Medical D-3 ORAL) Branch alcaftadine 2019-[address] [facility] [place] (LASTACAFT) 0-23 each eye. ity of 0.25 % Drop 17:03: [place] [address] [facility] CYCLOSPORIN 2020- Yes Place in [place] [facility] (RESTASIS 0-23 each eye. ity of OPHTHALMIC) 17:03: [place] [address] [facility] DOCOSAHEXAN 2019- Yes Take by [facility] vers OIC 0-23 mouth. ity of ACID/EPA 17:03: [place] (FISH OIL 43 Medical ORAL) Branch vitamin E 2019- Yes 1000U Take 1,000 U nivers 1,000 unit 0-23 Units by ity o f capsule 17:03: mouth [place] 43 daily. Medical Branch Magnesium 2020- Yes Take by [facility] 250 mg Tab 0-23 mouth. ity of 17:03: [place] [address] Medical Branch vitamin B-6 2019-09 Yes 100mg Take 100 [facility] (VITAMIN 0-23 mg by ity of B-6) 100 mg 17:03: mouth [place] tablet 43 daily. Medical Branch CALCIUM 2019- Yes Take by [facility] CARBONATE/V 0-23 mouth. ity of ITAMIN D3 17:03: [place] (VITAMIN 43 Medical D-3 ORAL) Branch alcaftadine 2019-[address] [facility] [place] (LASTACAFT) 0-23 each eye. ity of 0.25 % Drop 17:03: [place] [address] Medical Branch CYCLOSPORIN 2019- Yes Place [facility] [place] (RESTASIS 0-23 each eye. ity of OPHTHALMIC) 17:03: [place] [address] Medical Branch DOCOSAHEXAN 2019- Yes Take by [facility] vers OIC 0-23 mouth. ity of ACID/EPA 17:03: [place] (FISH OIL 43 Medical ORAL) Branch vitamin E 2020- Yes 1000U Take 1,000 U nivers 1,000 unit 0-23 Units by ity o f capsule 17:03: mouth [place] 43 daily. Medical Branch Magnesium 2020- Yes Take by [facility] 250 mg Tab 0-23 mouth. ity of 17:03: [place] [address] Medical Branch vitamin B-6 2019- Yes 100mg Take 100 [facility] (VITAMIN 0-23 mg by ity of B-6) 100 mg 17:03: mouth [place] tablet 43 daily. Medical Branch CALCIUM 2020- Yes Take by [facility] CARBONATE/V 0-23 mouth. ity of ITAMIN D3 17:03: [place] (VITAMIN 43 Medical D-3 ORAL) Branch alcaftadine 2019-[address] [place] (LASTACAFT) 0-23 each eye. ity of 0.25 % Drop 17:03: [place] [address] Medical Branch CYCLOSPORIN 2019-[address] [place] (RESTASIS 0-23 each eye. ity of OPHTHALMIC) 17:03: [place] [address] Medical Branch DOCOSAHEXAN 2019-09 Yes Take by [facility] vers OIC 0-23 mouth. ity of ACID/EPA 17:03: [place] (FISH OIL 43 Medical ORAL) Branch vitamin E 2019-09 Yes 1000U Take 1,000 [facility] 1,000 unit 0-23 Units by ity o f capsule 17:03: mouth [place] 43 daily. Medical Branch Magnesium 2019- Yes Take by [facility] 250 mg Tab 0-23 mouth. ity of 17:03: [place] [address] Medical Branch vitamin B-6 2019-09 Yes 100mg Take 100 [facility] (VITAMIN 0-23 mg by ity of B-6) 100 mg 17:03: mouth [place] tablet 43 daily. Medical Branch CALCIUM 2019-09 Yes Take by [facility] CARBONATE/V 0-23 mouth. ity of ITAMIN D3 17:03: [place] (VITAMIN 43 Medical D-3 ORAL) Branch DOCOSAHEXAN 2019-09 Yes Take by [facility] vers OIC 0-23 mouth. ity of ACID/EPA 17:03: [place] (FISH OIL 43 Medical ORAL) Branch DOCOSAHEXAN 2019-09 Yes Take by [facility] vers OIC 0-23 mouth. ity of ACID/EPA 17:03: [place] (FISH OIL 43 Medical ORAL) Branch DOCOSAHEXAN 2019- Yes Take by [facility] vers OIC 0-23 mouth. ity of ACID/EPA 17:03: [place] (FISH OIL 43 Medical ORAL) Branch DOCOSAHEXAN 2019- Yes Take by [facility] vers OIC 0-23 mouth. ity of ACID/EPA 17:03: [place] (FISH OIL 43 Medical ORAL) Branch DOCOSAHEXAN 2019- Yes Take by [facility] vers OIC 0-23 mouth. ity of ACID/EPA 17:03: [place] (FISH OIL 43 Medical ORAL) Branch DOCOSAHEXAN 2019- Yes Take by [facility] vers OIC 0-23 mouth. ity of ACID/EPA 17:03: [place] (FISH OIL 43 Medical ORAL) Branch DOCOSAHEXAN [...] (FISH OIL 43 Medical ORAL) Branch metoprolol 2020-1 Yes [id number] 25mg Take 1 U nivers succinate 0-23 tablet by ity o f XL 25 mg 24 00:00: mouth 2 [place] tablet 00 (two) Medical times Branch daily. metoprolol 2020- Yes [id number] 25mg Take 1 [facility] succinate 0-23 tablet by ity o f XL 25 mg 24 00:00: mouth 2 [place] tablet 00 (two) Medical times Branch daily. LEVOTHYROXI 2019- Yes [id number] TAKE 1 [facility] NE 50 mcg 0-23 TABLET BY ity o f tablet 00:00: MOUTH [place] 00 EVERY DAY Medical IN THE Branch MORNING metoprolol 2019- Yes [id number] 25mg Take 1 [facility] succinate 0-23 tablet by ity o f XL 25 mg 24 00:00: mouth 2 [place] tablet 00 (two) Medical times Branch daily. LEVOTHYROXI 2019- Yes [id number] TAKE 1 [facility] NE 50 mcg 0-23 TABLET BY ity o f tablet 00:00: MOUTH [place] 00 EVERY DAY Medical IN THE [place] MORNING metoprolol 2019- Yes [id number] 25mg Take 1 [facility] succinate 0-23 tablet by ity o f XL 25 mg 24 00:00: mouth 2 [place] tablet 00 (two) Medical times [place] daily. LEVOTHYROXI 2019- Yes [id number] TAKE 1 [facility] NE 50 mcg 0-23 TABLET BY ity o f tablet 00:00: MOUTH [place] 00 EVERY DAY Medical IN THE [place] MORNING metoprolol 2019- Yes [id number] 25mg Take 1 U [facility] succinate 0-23 tablet by ity o f XL 25 mg 24 00:00: mouth 2 [place] tablet 00 (two) Medical times [facility] daily. LEVOTHYROXI 2019- Yes [id number] TAKE 1 [facility] NE 50 mcg 0-23 TABLET BY ity o f tablet 00:00: MOUTH [place] 00 EVERY DAY Medical IN THE Branch MORNING metoprolol 2020- Yes [id number] 25mg Take 1 [facility] succinate 0-23 tablet by ity o f XL 25 mg 24 00:00: mouth 2 [place] tablet 00 (two) Medical times [place] daily. LEVOTHYROXI 2019- Yes [id number] TAKE 1 [facility] NE 50 mcg 0-23 TABLET BY ity o f tablet 00:00: MOUTH [place] 00 EVERY DAY Medical IN THE Branch MORNING metoprolol 2020- Yes [id number] 25mg Take 1 [facility] succinate 0-23 tablet by ity o f XL 25 mg 24 00:00: mouth 2 [place] tablet 00 (two) Medical times [place] daily. LEVOTHYROXI 2020- Yes [id number] TAKE 1 [facility] NE 50 mcg 0-23 TABLET BY ity o f tablet 00:00: MOUTH [place] 00 EVERY DAY Medical IN THE [place] MORNING metoprolol 2020- Yes [id number] 25mg Take 1 U [facility] succinate 0-23 tablet by ity o f XL 25 mg 24 00:00: mouth 2 [place] tablet 00 (two) Medical times [place] daily. LEVOTHYROXI 2019- Yes [id number] TAKE 1 [facility] 50 mcg 0-23 TABLET BY ity o f tablet 00:00: MOUTH [place] 00 EVERY DAY Medical IN THE [place] MORNING metoprolol 2019- Yes [id number] 25mg Take 1 U [facility] succinate 0-23 tablet by ity o f XL 25 mg 24 00:00: mouth 2 [place] tablet 00 (two) Medical times [place] daily. LEVOTHYROXI 2019- Yes [id number] TAKE 1 [facility] NE 50 mcg 0-23 TABLET BY ity o f tablet 00:00: MOUTH [place] 00 EVERY DAY Medical IN THE [place] MORNING metoprolol 2020- Yes [id number] 25mg Take 1 U n[facility] succinate 0-23 tablet by ity o f XL 25 mg 24 00:00: mouth 2 [place] tablet 00 (two) Medical times [place] daily. LEVOTHYROXI 2020- Yes [id number] TAKE 1 [facility] 50 mcg 0-23 TABLET BY ity o f tablet 00:00: MOUTH [place] 00 EVERY DAY Medical IN THE [place] MORNING metoprolol 2019- Yes [id number] 25mg Take 1 U [facility] succinate 0-23 tablet by ity o f XL 25 mg 24 00:00: mouth 2 [place] tablet 00 (two) Medical times [facility] daily. LEVOTHYROXI 2020- Yes [id number] TAKE 1 [facility] NE 50 mcg 0-23 TABLET BY ity o f tablet 00:00: MOUTH [place] 00 EVERY DAY Medical IN THE [place] MORNING metoprolol 2020- Yes [id number] 25mg Take 1 U [facility] succinate 0-23 tablet by ity o f XL 25 mg 24 00:00: mouth 2 [place] tablet 00 (two) Medical times [place] daily. LEVOTHYROXI 2020- Yes [id number] TAKE 1 [facility] 50 mcg 0-23 TABLET BY ity o f tablet 00:00: MOUTH [place] 00 EVERY DAY Medical IN THE [place] MORNING metoprolol 2019-09 Yes [id number] 25mg Take 1 [facility] succinate 0-23 tablet by ity o f XL 25 mg 24 00:00: mouth 2 [place] tablet 00 (two) Medical times [place] daily. LEVOTHYROXI 2019-09 Yes [id number] TAKE 1 [facility] 50 mcg 0-23 TABLET BY ity o f tablet 00:00: MOUTH [place] 00 EVERY DAY Medical IN THE [place] MORNING metoprolol 2019-09 Yes [id number] 25mg Take 1 U n[facility] succinate 0-23 tablet by ity o f XL 25 mg 24 00:00: mouth 2 [place] tablet 00 (two) Medical times [place] daily. LEVOTHYROXI 2019-09 Yes [id number] TAKE 1 [facility] 50 mcg 0-23 TABLET BY ity o f tablet 00:00: MOUTH [place] 00 EVERY DAY Medical IN THE [facility] LEVOTHYROXI 2019-09 Yes [id number] TAKE 1 [facility] NE 50 mcg 0-23 TABLET BY ity o f tablet 00:00: MOUTH [place] 00 EVERY DAY Medical IN THE [facility] LEVOTHYROXI 2019-09 Yes [id number] TAKE 1 [facility] NE 50 mcg 0-23 TABLET BY ity o f tablet 00:00: MOUTH [place] 00 EVERY DAY Medical IN THE [facility] LEVOTHYROXI 2019-09 Yes [id number] TAKE 1 [facility] [place] 50 mcg 0-23 TABLET BY ity o f tablet 00:00: MOUTH [place] 00 EVERY DAY Medical IN THE [place] MORNING LEVOTHYROXI 2019- Yes [id number] TAKE 1 [facility] [place] 50 mcg 0-23 TABLET BY ity o f tablet 00:00: MOUTH [place] 00 EVERY DAY Medical IN THE [place] MORNING LEVOTHYROXI 2020- Yes [id number] TAKE 1 [facility] [place] 50 mcg 0-23 TABLET BY ity o f tablet 00:00: MOUTH [place] 00 EVERY DAY Medical IN THE [facility] LEVOTHYROXI 2019-09 Yes [id number] TAKE 1 [facility] [place] 50 mcg 0-23 TABLET BY ity o f tablet 00:00: MOUTH [place] 00 EVERY DAY Medical IN THE [facility] LEVOTHYROXI 2020- Yes [id number] TAKE 1 [facility] [place] 50 mcg 0-23 TABLET BY ity o f tablet 00:00: MOUTH [place] 00 EVERY DAY Medical IN THE [facility] LEVOTHYROXI 2020 Yes [id number] TAKE 1 [facility] [place] 50 mcg 0-23 TABLET BY ity o f tablet 00:00: MOUTH [place] 00 EVERY DAY Medical IN THE [facility] LEVOTHYROXI 2019-09 Yes [id number] TAKE 1 [facility] [place] 50 mcg 0-23 TABLET BY ity o f tablet 00:00: MOUTH [place] 00 EVERY DAY Medical IN THE [facility] LEVOTHYROXI 2019-09 Yes [id number] TAKE 1 [facility] [place] 50 mcg 0-23 TABLET BY ity o f tablet 00:00: MOUTH [place] 00 EVERY DAY Medical IN THE [facility] LEVOTHYROXI 2019-09 Yes [id number] TAKE 1 [facility] [place] 50 mcg 0-23 TABLET BY ity o f tablet 00:00: MOUTH [place] 00 EVERY DAY Medical IN THE [facility] LEVOTHYROXI 2019-09 Yes [id number] TAKE 1 [facility] [place] 50 mcg 0-23 TABLET BY ity o f tablet 00:00: MOUTH [place] 00 EVERY DAY Medical IN THE [facility] LEVOTHYROXI 2019-09 Yes [id number] TAKE 1 [facility] [place] 50 mcg 0-23 TABLET BY ity o f tablet 00:00: MOUTH [place] 00 EVERY DAY Medical IN THE [facility] LEVOTHYROXI 2019-09 Yes [id number] TAKE 1 [facility] [place] 50 mcg 0-23 TABLET BY ity o f tablet 00:00: MOUTH [place] 00 EVERY DAY Medical IN THE [facility] LEVOTHYROXI 2019-09 Yes [id number] TAKE 1 [facility] [place] 50 mcg 0-23 TABLET BY ity o f tablet 00:00: MOUTH [place] 00 EVERY DAY Medical IN THE [facility] LEVOTHYROXI 2019-09 Yes [id number] TAKE 1 [facility] 50 mcg 0-23 TABLET BY ity o f tablet 00:00: MOUTH [place] 00 EVERY DAY Medical IN THE [facility] LEVOTHYROXI 2020 Yes [id number] TAKE 1 [facility] [place] 50 mcg 0-23 TABLET BY ity o f tablet 00:00: MOUTH [place] 00 EVERY DAY Medical IN THE [facility] LEVOTHYROXI 2019-09 Yes [id number] TAKE 1 [facility] [place] 50 mcg 0-23 TABLET BY ity o f tablet 00:00: MOUTH [place] 00 EVERY DAY Medical IN THE [facility] LEVOTHYROXI 2020- Yes [id number] TAKE 1 [facility] 50 mcg 0-23 TABLET BY ity o f tablet 00:00: MOUTH [place] 00 EVERY DAY Medical IN THE [facility] LEVOTHYROXI 2020- Yes [id number] TAKE 1 [facility] 50 mcg 0-23 TABLET BY ity o f tablet 00:00: MOUTH [place] 00 EVERY DAY Medical IN THE [facility] LEVOTHYROXI 2019-09 Yes [id number] TAKE 1 [facility] 50 mcg 0-23 TABLET BY ity o f tablet 00:00: MOUTH [place] 00 EVERY DAY Medical IN THE [facility] LEVOTHYROXI 2019-09 Yes [id number] TAKE 1 [facility] 50 mcg 0-23 TABLET BY ity o f tablet 00:00: MOUTH [place] 00 EVERY DAY Medical IN THE [facility] LEVOTHYROXI 2019-09 Yes [id number] TAKE 1 [facility] [place] 50 mcg 0-23 TABLET BY ity o f tablet 00:00: MOUTH [place] 00 EVERY DAY Medical IN THE [facility] LEVOTHYROXI 2019-09 Yes [id number] TAKE 1 [facility] [place] 50 mcg 0-23 TABLET BY ity o f tablet 00:00: MOUTH [place] 00 EVERY DAY Medical IN THE [facility] LEVOTHYROXI 2019-09 Yes [id number] TAKE 1 [facility] [place] 50 mcg 0-23 TABLET BY ity o f tablet 00:00: MOUTH [place] 00 EVERY DAY Medical IN THE [facility] LEVOTHYROXI 2019-09 Yes [id number] TAKE 1 [facility] [place] 50 mcg 0-23 TABLET BY ity o f tablet 00:00: MOUTH [place] 00 EVERY DAY Medical IN THE [facility] LEVOTHYROXI 2019-09 Yes [id number] TAKE 1 [facility] [place] 50 mcg 0-23 TABLET BY ity o f tablet 00:00: MOUTH [place] 00 EVERY DAY Medical IN THE [facility] LEVOTHYROXI 2019-09 Yes [id number] TAKE 1 [facility] [place] 50 mcg 0-23 TABLET BY ity o f tablet 00:00: MOUTH [place] 00 EVERY DAY Medical IN THE [facility] LEVOTHYROXI 2020- Yes [id number] TAKE 1 [facility] [place] 50 mcg 0-23 TABLET BY ity o f tablet 00:00: MOUTH [place] 00 EVERY DAY Medical IN THE [facility] LEVOTHYROXI 2020 Yes [id number] TAKE 1 [facility] [place] 50 mcg 0-23 TABLET BY ity o f tablet 00:00: MOUTH [place] 00 EVERY DAY Medical IN THE [facility] LEVOTHYROXI 2019-09 Yes [id number] TAKE 1 [facility] [place] 50 mcg 0-23 TABLET BY ity o f tablet 00:00: MOUTH [place] 00 EVERY DAY Medical IN THE Branch MORNING LEVOTHYROXI 2019-09- No [id number] TAKE 1 [facility] NE 50 mcg 0-23 05-05 TABLET BY ity of tablet 00:00: 00:00 MOUTH [place] 00 :00 EVERY DAY Medical IN THE Branch MORNING metoprolol 2019-09- No [id number] 25mg Take 1 [facility] succinate 0-23 12-09 tablet by ity of XL 25 mg 24 00:00: 00:00 mouth 2 [place] hr tablet 00 :00 (two) Medical times [place] daily. metoprolol 2019-09- No [id number] 25mg Take 1 [facility] succinate 0-23 12-09 tablet by ity of XL 25 mg 24 00:00: 00:00 mouth 2 [place] hr tablet 00 :00 (two) Medical times [place] daily. metoprolol 2019-09- No [id number] 25mg Take 1 [facility] succinate 0-23 12-09 tablet by ity of XL 25 mg 24 00:00: 00:00 mouth 2 [place] hr tablet 00 :00 (two) Medical times [place] daily. ASCORBATE 2019-09 2020- No Take by [facility] ers CALCIUM 0-05 10-05 mouth. ity of (VITAMIN C 20:39: 00:00 [place] ORAL) 59 :00 Medical Branch ASCORBATE 2019-09 2020- No Take by [facility] ers CALCIUM 0-05 10-05 mouth. ity of (VITAMIN C 20:39: 00:00 [place] ORAL) 59 :00 Medical Branch CYCLOSPORIN 2019-[address] [place] (RESTASIS 0-05 each eye. ity of OPHTHALMIC) 20:35: [place] [address] Medical Branch DOCOSAHEXAN 2019-09 Yes Take by Uni vers OIC 0-05 mouth. ity of ACID/EPA 20:35: [place] (FISH OIL 33 Medical ORAL) Branch vitamin E 2019-09 Yes 1000U Take 1,000 U nivers 1,000 unit 0-05 Units by ity o f capsule 20:35: mouth [place] [address] daily. Medical Branch Magnesium 2019-09 Yes Take by [facility] 250 mg Tab 0-05 mouth. ity of 20:35: [address] Branch vitamin B-6 2019-09 Yes 100mg Take [...] OIC 0-05 mouth. ity of ACID/EPA 20:35: [place] (FISH OIL 33 Medical ORAL) Branch vitamin E 2019-09 Yes 1000U Take 1,000 U nivers 1,000 unit 0-05 Units by ity o f capsule 20:35: mouth [place] 33 daily. Medical Branch Magnesium 2019- Yes Take by [facility] 250 mg Tab 0-05 mouth. ity of 20:35: 33 Medical Branch vitamin B-6 2019-09 Yes 100mg Take 100 U n[facility] (VITAMIN 0-05 mg by ity of B-6) 100 mg 20:35: mouth [place] tablet 33 daily. Medical Branch CYCLOSPORIN 2019-[address] [place] (RESTASIS 0-05 each eye. ity of OPHTHALMIC) 20:35: [place] 33 Medical Branch DOCOSAHEXAN 2019- Yes Take [...] OIC 0-05 mouth. ity of ACID/EPA 20:35: [place] (FISH OIL 33 Medical ORAL) Branch vitamin [...] OIC 0-05 mouth. ity of ACID/EPA 20:35: [place] (FISH OIL 33 Medical ORAL) Branch vitamin [...] ity of OPHTHALMIC) 20:35: Medical Branch DOCOSAHEXAN 2019 Yes Take by Uni vers OIC 0-05 [...] 33 daily. Medical Branch metoprolol 2019-09 Yes [id number] 25mg Take 1 U nivers succinate 0-05 tablet by ity o f XL 25 mg 24 00:00: mouth [place] hr tablet 00 every day Medic al at 1200 Branch (noon). metformin 2019-09 Yes [id number] 750mg Take 1 U nivers ER 750 mg 0-05 tablet by ity o f 24 hr 00:00: mouth 2 [place] tablet 00 (two) Medical times Branch daily with meals. DOSE INCREASE. metoprolol 2019-09 Yes [id number] 25mg Take 1 U nivers succinate 0-05 tablet by ity o f XL 25 mg 24 00:00: mouth [place] hr tablet 00 every day Medic al at 1200 Branch (noon). metformin 2019- Yes [id number] 750mg Take 1 U nivers ER 750 mg 0-05 tablet by ity o f 24 hr 00:00: mouth 2 [place] tablet 00 (two) Medical times Branch daily with meals. DOSE INCREASE. metoprolol 2019- Yes [id number] 25mg Take 1 U nivers succinate 0-05 tablet by ity o f XL 25 mg 24 00:00: mouth [place] hr tablet 00 every day Medic al at 1200 Branch (noon). metformin 2019- Yes [id number] 750mg Take 1 U nivers ER 750 mg 0-05 tablet by ity o f 24 hr 00:00: mouth 2 [place] tablet 00 (two) Medical times Branch daily with meals. DOSE INCREASE. metoprolol 2019- Yes [id number] 25mg Take 1 U nivers succinate 0-05 tablet by ity o f XL 25 mg 24 00:00: mouth [place] hr tablet 00 every day Medic al at 1200 Branch (noon). metformin 2019- Yes [id number] 750mg Take 1 U nivers ER 750 mg 0-05 tablet by ity o f 24 hr 00:00: mouth 2 [place] tablet 00 (two) Medical times Branch daily with meals. DOSE INCREASE. metoprolol 2019- Yes [id number] 25mg Take 1 U nivers succinate 0-05 tablet by ity o f XL 25 mg 24 00:00: mouth [place] hr tablet 00 every day Medic al at 1200 Branch (noon). metformin 2019- Yes [id number] 750mg Take 1 U nivers ER 750 mg 0-05 tablet by ity o f 24 hr 00:00: mouth 2 [place] tablet 00 (two) Medical times Branch daily with meals. DOSE INCREASE. metoprolol 2019- Yes [id number] 25mg Take 1 U nivers succinate 0-05 tablet by ity o f XL 25 mg 24 00:00: mouth [place] hr tablet 00 every day Medic al at 1200 Branch (noon). metformin 2019-1 Yes [id number] 750mg Take 1 U nivers ER 750 mg 0-05 tablet by ity o f 24 hr 00:00: mouth 2 [place] tablet 00 (two) Medical times Branch daily with meals. DOSE INCREASE. metoprolol 2019- Yes [id number] 25mg Take 1 U nivers succinate 0-05 tablet by ity o f XL 25 mg 24 00:00: mouth [place] hr tablet 00 every day Medic al at 1200 Branch (noon). metformin 2019-1 Yes [id number] 750mg Take 1 U nivers ER 750 mg 0-05 tablet by ity o f 24 hr 00:00: mouth 2 [place] tablet 00 (two) Medical times Branch daily with meals. DOSE INCREASE. metoprolol 2019-09 Yes [id number] 25mg Take 1 U nivers succinate 0-05 tablet by ity o f XL 25 mg 24 00:00: mouth [place] hr tablet 00 every day Medic al at 1200 Branch (noon). metformin 2019-09 Yes [id number] 750mg Take 1 U nivers ER 750 mg 0-05 tablet by ity o f 24 hr 00:00: mouth 2 [place] tablet 00 (two) Medical times Branch daily with meals. DOSE INCREASE. metformin 2019-09 Yes [id number] 750mg Take 1 U nivers ER 750 mg 0-05 tablet by ity o f 24 hr 00:00: mouth 2 [place] tablet 00 (two) Medical times Branch daily with meals. DOSE INCREASE. metformin 2019-09 Yes [id number] 750mg Take 1 U nivers ER 750 mg 0-05 tablet by ity o f 24 hr 00:00: mouth 2 [place] tablet 00 (two) Medical times Branch daily with meals. DOSE INCREASE. metformin 2019-09 Yes [id number] 750mg Take 1 U nivers ER 750 mg 0-05 tablet by ity o f 24 hr 00:00: mouth 2 [place] tablet 00 (two) Medical times Branch daily with meals. DOSE INCREASE. metformin 2019-09 Yes [id number] 750mg Take 1 U nivers ER 750 mg 0-05 tablet by ity o f 24 hr 00:00: mouth 2 [place] tablet 00 (two) Medical times Branch daily with meals. DOSE INCREASE. metformin 2019-09 Yes [id number] 750mg Take 1 U nivers ER 750 mg 0-05 tablet by ity o f 24 hr 00:00: mouth 2 [place] tablet 00 (two) Medical times Branch daily with meals. DOSE INCREASE. metformin 2019-09 Yes [id number] 750mg Take 1 U nivers ER 750 mg 0-05 tablet by ity o f 24 hr 00:00: mouth 2 [place] tablet 00 (two) Medical times Branch daily with meals. DOSE INCREASE. metformin 2019-09 Yes [id number] 750mg Take 1 U nivers ER 750 mg 0-05 tablet by ity o f 24 hr 00:00: mouth 2 [place] tablet 00 (two) Medical times Branch daily with meals. DOSE INCREASE. metformin 2019-09 Yes [id number] 750mg Take 1 U nivers ER 750 mg 0-05 tablet by ity o f 24 hr 00:00: mouth 2 [place] tablet 00 (two) Medical times Branch daily with meals. DOSE INCREASE. metformin 2019-09 Yes [id number] 750mg Take 1 U nivers ER 750 mg 0-05 tablet by ity o f 24 hr 00:00: mouth 2 [place] tablet 00 (two) Medical times Branch daily with meals. DOSE INCREASE. metformin 2019-09 Yes [id number] 750mg Take 1 U nivers ER 750 mg 0-05 tablet by ity o f 24 hr 00:00: mouth 2 [place] tablet 00 (two) Medical times Branch daily with meals. DOSE INCREASE. metformin 2019-09 2020- No [id number] 750mg Take 1 [facility] ER 750 mg 0-05 11-28 tablet by ity of 24 hr 00:00: 00:00 mouth 2 [place] tablet 00 :00 (two) Medical times Branch daily with meals. DOSE INCREASE. metoprolol 2019-09 2020- No [id number] 25mg Take 1 [facility] succinate 0-05 10-23 tablet by ity of XL 25 mg 24 00:00: 00:00 mouth [place] hr tablet 00 :00 every day Medic al at 1200 Branch (noon). metoprolol 2019-09 2020- No [id number] 25mg Take 1 [facility] succinate 0-05 10-23 tablet by ity of XL 25 mg 24 00:00: 00:00 mouth [place] hr tablet 00 :00 every day Medic al at 1200 Branch (noon). alcaftadine 2020-[address] [place] (LASTACAFT) 06-09 each eye. ity of 0.25 % Drop 19:20: [address] Branch CYCLOSPORIN 2020-[address] [place] E (RESTASIS 06-09 each eye. ity of OPHTHALMIC) 19:20: [place] [address] Medical Branch ASCORBATE 2020-0 Yes Take by Unive rs CALCIUM 06-09 mouth. ity of (VITAMIN C 19:20: [facility]) Medical Branch DOCOSAHEXAN 2020-0 Yes Take by Uni vers OIC 06-09 mouth. ity of ACID/EPA 19:20: [place] (FISH OIL Medical ORAL) [facility] vitamin E 2020-0 Yes 1000U Take 1,000 U nivers 1,000 unit 9-23 Units by ity o f capsule 19:20: mouth [place] 49 daily. Medical Branch Magnesium 2020-0 Yes Take by Unive rs 250 mg Tab - mouth. ity of 19:20: [place] [address] Medical Branch vitamin B-6 2020-0 Yes 100mg Take 100 U nivers (VITAMIN 9-23 mg by ity of B-6) 100 mg 19:20: mouth [place] tablet 49 daily. Medical Branch CALCIUM 2020-0 Yes Take by [facility] CARBONATE/V 06-09 mouth. ity of ITAMIN D3 19:20: [place] (VITAMIN 49 Medical D-3 ORAL) Branch alcaftadine 2020-[address] [place] (LASTACAFT) 9 each eye. ity of 0.25 % Drop 19:20: [place] [address] Medical Branch CYCLOSPORIN 2020-[address] [place] E (RESTASIS 06-09 each eye. ity of OPHTHALMIC) 19:20: [place] [address] Medical Branch ASCORBATE 2020-0 Yes Take by Unive rs CALCIUM - mouth. ity of (VITAMIN C 19:20: [place] ORAL) 49 Medical Branch DOCOSAHEXAN 2020-0 Yes Take by Uni vers OIC 06-09 mouth. ity of ACID/EPA 19:20: [place] (FISH OIL 49 Medical ORAL) Branch vitamin E 2020-0 Yes 1000U Take 1,000 U nivers 1,000 unit 9-23 Units by ity o f capsule 19:20: mouth [place] 49 daily. Medical Branch Magnesium 2020-0 Yes Take by [facility]ive rs 250 mg Tab 06-09 mouth. ity of 19:20: [place] [address] Medical Branch vitamin B-6 2020-0 Yes 100mg Take 100 U nivers (VITAMIN 9-23 mg by ity of B-6) 100 mg 19:20: mouth [place] tablet 49 daily. Medical Branch CALCIUM 2020-0 Yes Take by [facility] CARBONATE/V - mouth. ity of ITAMIN D3 19:20: [place] (VITAMIN 49 Medical D-3 ORAL) Branch alcaftadine 2020-[address] [place] (LASTACAFT) 9 each eye. ity of 0.25 % Drop 19:20: [place] [address] Medical Branch CYCLOSPORIN 2020-[address] [place] E (RESTASIS 06-09 each eye. ity of OPHTHALMIC) 19:20: [place] [address] Medical Branch ASCORBATE 2020-0 Yes Take by Unive rs CALCIUM 06-09 mouth. ity of (VITAMIN C 19:20: [place] ORAL) 49 Medical Branch DOCOSAHEXAN 2020-0 Yes Take by Uni vers OIC 06-09 mouth. ity of ACID/EPA 19:20: [place] (FISH OIL 49 Medical ORAL) Branch vitamin E 2020-0 Yes 1000U Take 1,000 U nivers 1,000 unit 9-23 Units by ity o f capsule 19:20: mouth [place] 49 daily. Medical Branch Magnesium 2020-0 Yes Take by [facility] 250 mg Tab 06-09 mouth. ity of 19:20: [place] [address] Medical Branch vitamin B-6 2020-0 Yes 100mg Take 100 U nivers (VITAMIN 9-23 mg by ity of B-6) 100 mg 19:20: mouth [place] tablet 49 daily. Medical Branch CALCIUM 2020-0 Yes Take by [facility] CARBONATE/V 06-09 mouth. ity of ITAMIN D3 19:20: [place] (VITAMIN 49 Medical D-3 ORAL) Branch alcaftadine 2020-[address] [place] (LASTACAFT) 06-09 each eye. ity of 0.25 % Drop 19:20: [place] [address] Medical Branch CYCLOSPORIN 2020-[address] [place] E (RESTASIS 06-09 each eye. ity of OPHTHALMIC) 19:20: [place] [address] Medical Branch ASCORBATE 2020-0 Yes Take by Unive rs CALCIUM 06-09 mouth. ity of (VITAMIN C 19:20: [place] ORAL) 49 Medical Branch DOCOSAHEXAN 2020-0 Yes Take by Uni vers OIC 06-09 mouth. ity of ACID/EPA 19:20: [place] (FISH OIL 49 Medical ORAL) Branch vitamin E 2020-0 Yes 1000U Take 1,000 U nivers 1,000 unit 9-23 Units by ity o f capsule 19:20: mouth [place] 49 daily. Medical Branch Magnesium 2020-0 Yes Take by [facility] 250 mg Tab 06-09 mouth. ity of 19:20: [place] [address] Medical Branch vitamin B-6 2020-0 Yes 100mg Take 100 U nivers (VITAMIN 9-23 mg by ity of B-6) 100 mg 19:20: mouth [place] tablet 49 daily. Medical Branch CALCIUM 2020-0 Yes Take by [facility] CARBONATE/V 06-09 mouth. ity of ITAMIN D3 19:20: [place] (VITAMIN 49 Medical D-3 ORAL) Branch alcaftadine 2020-[address] [place] (LASTACAFT) 9- each eye. ity of 0.25 % Drop 19:20: [place] [id number] [facility] CYCLOSPORIN 2020-[address] [facility] [place] E (RESTASIS 06-09 each eye. ity of OPHTHALMIC) 19:20: [place] [address] [facility] ASCORBATE 2020-0 Yes Take by Unive rs CALCIUM - mouth. ity of (VITAMIN C 19:20: [place] ORAL) 49 Medical Branch DOCOSAHEXAN 2020-0 Yes Take by Uni vers OIC 06-09 mouth. ity of ACID/EPA 19:20: [place] (FISH OIL 49 Medical ORAL) Branch vitamin E 2020-0 Yes 1000U Take 1,000 U nivers 1,000 unit -23 Units by ity o f capsule 19:20: mouth [place] 49 daily. Medical Branch Magnesium 2020-0 Yes Take by Unive rs 250 mg Tab 06-09 mouth. ity of 19:20: [place] [address] [facility] Branch vitamin B-6 2020-0 Yes 100mg Take 100 U nivers (VITAMIN 9- mg by ity of B-6) 100 mg 19:20: mouth [place] tablet 49 daily. Medical Branch CALCIUM 2020-0 Yes Take by Univers CARBONATE/V 06-09 mouth. ity of ITAMIN D3 19:20: [place] (VITAMIN 49 Medical D-3 ORAL) Branch alcaftadine 2020-[address] [place] (LASTACAFT) 9- each eye. ity of 0.25 % Drop 19:20: [place] [address] [facility] Branch CYCLOSPORIN 2020-[address] [place] (RESTASIS 06-09 each eye. ity of OPHTHALMIC) 19:20: [place] [address] Medical Branch ASCORBATE 2020-0 Yes Take by Unive rs CALCIUM - mouth. ity of (VITAMIN C 19:20: [place] ORAL) 49 Medical Branch DOCOSAHEXAN 2020-0 Yes Take by Uni vers OIC 06-09 mouth. ity of ACID/EPA 19:20: [place] (FISH OIL 49 Medical ORAL) Branch vitamin E 2020-0 Yes 1000U Take 1,000 U nivers 1,000 unit -23 Units by ity o f capsule 19:20: mouth [place] 49 daily. Medical Branch Magnesium 2020-0 Yes Take by [facility] 250 mg Tab 06-09 mouth. ity of 19:20: [place] [address] [facility] Branch vitamin B-6 2020-0 Yes 100mg Take 100 U nivers (VITAMIN 9- mg by ity of B-6) 100 mg 19:20: mouth [place] tablet 49 daily. Medical Branch CALCIUM 2020-0 Yes Take by [facility] CARBONATE/V 06-09 mouth. ity of ITAMIN D3 19:20: [place] (VITAMIN 49 Medical D-3 ORAL) Branch alcaftadine 2020-[address] [place] (LASTACAFT) 06-09 each eye. ity of 0.25 % Drop 19:20: [place] 49 Medical Branch CALCIUM 2020-0 Yes Take by [facility] CARBONATE/V 06-09 mouth. ity of ITAMIN D3 19:20: [place] (VITAMIN 49 Medical D-3 ORAL) Branch alcaftadine 2020-[address] [place] (LASTACAFT) 06-09 each eye. ity of 0.25 % Drop 19:20: [place] 49 Medical Branch CALCIUM 2020-0 Yes Take by [facility] CARBONATE/V 06-09 mouth. ity of ITAMIN D3 19:20: [place] (VITAMIN 49 Medical D-3 ORAL) Branch alcaftadine 2020-[address] [place] (LASTACAFT) 06-09 each eye. ity of 0.25 % Drop 19:20: [place] [address] [facility] Branch CALCIUM 2020-0 Yes Take by [facility] CARBONATE/V 06-09 mouth. ity of ITAMIN D3 19:20: [place] (VITAMIN 49 Medical D-3 ORAL) Branch alcaftadine 2020-[address] [place] (LASTACAFT) 06-09 each eye. ity of 0.25 % Drop 19:20: [place] [address] [facility] Branch CALCIUM 2020-0 Yes Take by Univer s CARBONATE/V 06-09 mouth. ity of ITAMIN D3 19:20: [place] (VITAMIN 49 Medical D-3 ORAL) Branch alcaftadine 2020-[address] [place] (LASTACAFT) 06-09 each eye. ity of 0.25 % Drop 19:20: [place] [address] Medical Branch CALCIUM 2020-0 Yes Take by [facility] CARBONATE/V 06-09 mouth. ity of ITAMIN D3 19:20: [place] (VITAMIN 49 Medical D-3 ORAL) Branch alcaftadine 2020-[address] [place] (LASTACAFT) 06-09 each eye. ity of 0.25 % Drop 19:20: [place] [address] Medical Branch CALCIUM 2020-0 Yes Take by [facility] CARBONATE/V 9-23 mouth. ity of ITAMIN D3 19:20: [place] (VITAMIN 49 Medical D-3 ORAL) Branch alcaftadine 2020-[address] [place] (LASTACAFT) 9- each eye. ity of 0.25 % Drop 19:20: [place] [address] Medical Branch CALCIUM 2020-0 Yes Take by [facility] CARBONATE/V 9-23 mouth. ity of ITAMIN D3 19:20: [place] (VITAMIN 49 Medical D-3 ORAL) Branch alcaftadine 2020-[address] [place] (LASTACAFT) 9- each eye. ity of 0.25 % Drop 19:20: [place] [address] Medical Branch CALCIUM 2020-0 Yes Take by [facility] CARBONATE/V 9-23 mouth. ity of ITAMIN D3 19:20: [place] (VITAMIN 49 Medical D-3 ORAL) Branch metoprolol 2020-0 Yes [id number] 25mg Take 1 U nivers succinate 9-23 tablet by ity o f XL 25 mg 24 00:00: mouth at [place] hr tablet 00 bedtime. Medica l Branch metoprolol 2020-0 Yes [id number] 25mg Take 1 U nivers succinate 9-23 tablet by ity o f XL 25 mg 24 00:00: mouth at [place] hr tablet 00 bedtime. Medica l Branch metoprolol 2020-0 Yes [id number] 25mg Take 1 U nivers succinate 9-23 tablet by ity o f XL 25 mg 24 00:00: mouth [place] tablet 00 bedtime. Medica l Branch metoprolol 2020-0 Yes [id number] 25mg Take 1 U nivers succinate 9-23 tablet by ity o f XL 25 mg 24 00:00: mouth at [place] tablet 00 bedtime. Medica l Branch metoprolol 2020-0 Yes [id number] 25mg Take 1 U nivers succinate 9-23 tablet by ity o f XL 25 mg 24 00:00: mouth at [place] tablet 00 bedtime. Medica l Branch metoprolol 2020-0 Yes [id number] 25mg Take 1 U nivers succinate 9-23 tablet by ity o f XL 25 mg 24 00:00: mouth at [place] tablet 00 bedtime. Medica l Branch metoprolol 2020-0 Yes [id number] 25mg Take 1 U nivers succinate 9-23 tablet by ity o f XL 25 mg 24 00:00: mouth at [place] hr tablet 00 bedtime. Medica l Branch metoprolol 2019-0 2020- No [id number] 25mg Take 1 [facility] succinate 9-23 10-05 tablet by ity of XL 25 mg 24 00:00: 00:00 mouth at [place] hr tablet 00 :00 bedtime. Medica l Branch metoprolol 2019-0 2020- No [id number] 25mg Take 1 [facility] succinate 9-23 10-05 tablet by ity of XL 25 mg 24 00:00: 00:00 mouth at [place] hr tablet 00 :00 bedtime. Medica l Branch LOSARTAN 25 2019-0 Yes [id number] TAKE 1 [facility] mg tablet 9-22 TABLET BY ity o f 00:00: MOUTH [place] 00 EVERY DAY Medical Branch LOSARTAN 25 2019-0 2020- No [id number] TAKE 1 [facility] mg tablet -08 06- TABLET BY ity of 00:00: 00:00 MOUTH [place] 00 :00 EVERY DAY Medical Branch losartan 25 2019-0 Yes [id number] 25mg Take 1 [facility] mg tablet 9-21 tablet by ity o f 00:00: mouth [place] 00 daily. Medical Branch traZODone 2020-0 Yes [id number] 100mg Take 1 [facility] 100 mg 9-21 tablet by ity of tablet 00:00: mouth at [place] 00 bedtime as Medical needed for Branch Insomnia. losartan 25 2019-0 Yes [id number] 25mg Take 1 [facility] mg tablet 9-21 tablet by ity o f 00:00: mouth [place] 00 daily. Medical Branch traZODone 2020-0 Yes [id number] 100mg Take 1 [facility] 100 mg 9-21 tablet by ity of tablet 00:00: mouth at [place] 00 bedtime as Medical needed for Branch Insomnia. traZODone 2020-0 Yes [id number] 100mg Take 1 [facility] 100 mg 9-21 tablet by ity of tablet 00:00: mouth at [place] 00 bedtime as Medical needed for Branch Insomnia. traZODone 2020-0 Yes [id number] 100mg Take 1 [facility] 100 mg 9-21 tablet by ity of tablet 00:00: mouth at [place] 00 bedtime as Medical needed for Branch Insomnia. traZODone 2020-0 Yes [id number] 100mg Take 1 [facility] 100 mg 9-21 tablet by ity of tablet 00:00: mouth at [place] 00 bedtime as Medical needed for Branch Insomnia. traZODone 2020-0 Yes [id number] 100mg Take 1 [facility] 100 mg 9-21 tablet by ity of tablet 00:00: mouth at [place] 00 bedtime as Medical needed for Branch Insomnia. traZODone 2020-0 Yes [id number] 100mg Take 1 [facility] 100 mg 9-21 tablet by ity of tablet 00:00: mouth at [place] 00 bedtime as Medical needed for Branch Insomnia. traZODone 2020-0 Yes [id number] 100mg Take 1 [facility] 100 mg 9-21 tablet by ity of tablet 00:00: mouth at [place] 00 bedtime as Medical needed for Branch Insomnia. traZODone 2020-0 Yes [id number] 100mg Take 1 [facility] 100 mg 9-21 tablet by ity of tablet 00:00: mouth at [place] 00 bedtime as Medical needed for Branch Insomnia. traZODone 2020-0 Yes [id number] 100mg Take 1 [facility] 100 mg 9-21 tablet by ity of tablet 00:00: mouth at [place] [address] bedtime as Medical needed for Branch Insomnia. traZODone 2020-0 Yes [id number] 100mg Take 1 [facility] 100 mg 9-21 tablet by ity of tablet 00:00: mouth at [place] 00 bedtime as Medical needed for Branch Insomnia. traZODone 2020-0 Yes [id number] 100mg Take 1 [facility] 100 mg 9-21 tablet by ity of tablet 00:00: mouth at [place] 00 bedtime as Medical needed for Branch Insomnia. traZODone 2020-0 Yes [id number] 100mg Take 1 [facility] 100 mg 9-21 tablet by ity of tablet 00:00: mouth at [place] 00 bedtime as Medical needed for Branch Insomnia. traZODone 2020-0 Yes [id number] 100mg Take 1 [facility] 100 mg 9-21 tablet by ity of tablet 00:00: mouth at [place] 00 bedtime as Medical needed for Branch Insomnia. traZODone 2020-0 Yes [id number] 100mg Take 1 [facility] 100 mg 9-21 tablet by ity of tablet 00:00: mouth at [place] 00 bedtime as Medical needed for Branch Insomnia. traZODone 2020-0 Yes [id number] 100mg Take 1 [facility] 100 mg 9-21 tablet by ity of tablet 00:00: mouth at [place] 00 bedtime as Medical needed for Branch Insomnia. traZODone 2020-0 Yes [id number] 100mg Take 1 [facility] 100 mg 9-21 tablet by ity of tablet 00:00: mouth at [place] 00 bedtime as Medical needed for Branch Insomnia. traZODone 2020-0 Yes [id number] 100mg Take 1 [facility] 100 mg 9-21 tablet by ity of tablet 00:00: mouth at [place] 00 bedtime as Medical needed for Branch Insomnia. traZODone 2020-0 Yes [id number] 100mg Take 1 [facility] 100 mg 9-21 tablet by ity of tablet 00:00: mouth at [place] 00 bedtime as Medical needed for Branch Insomnia. traZODone 2020-0 Yes [id number] 100mg Take 1 [facility] 100 mg 9-21 tablet by ity of tablet 00:00: mouth at [place] 00 bedtime as Medical needed for Branch Insomnia. traZODone 2020-0 Yes [id number] 100mg Take 1 [facility] 100 mg 9-21 tablet by ity of tablet 00:00: mouth at [place] 00 bedtime as Medical needed for Branch Insomnia. traZODone 2020-0 Yes [id number] 100mg Take 1 [facility] 100 mg 9-21 tablet by ity of tablet 00:00: mouth at [place] 00 bedtime as Medical needed for Branch Insomnia. traZODone 2020-0 Yes [id number] 100mg Take 1 [facility] 100 mg 9-21 tablet by ity of tablet 00:00: mouth at [place] 00 bedtime as Medical needed for Branch Insomnia. traZODone 2020-0 Yes [id number] 100mg Take 1 [facility] 100 mg 9-21 tablet by ity of tablet 00:00: mouth at [place] 00 bedtime as Medical needed for Branch Insomnia. traZODone 2020-0 Yes [id number] 100mg Take 1 [facility] 100 mg 9-21 tablet by ity of tablet 00:00: mouth at [place] 00 bedtime as Medical needed for Branch Insomnia. traZODone 2020-0 Yes [id number] 100mg Take 1 [facility] 100 mg 9-21 tablet by ity of tablet 00:00: mouth at [place] 00 bedtime as Medical needed for Branch Insomnia. traZODone 2020-0 Yes [id number] 100mg Take 1 [facility] 100 mg 9-21 tablet by ity of tablet 00:00: mouth at [place] 00 bedtime as Medical needed for Branch Insomnia. traZODone 2020-0 Yes [id number] 100mg Take 1 [facility] 100 mg 9-21 tablet by ity of tablet 00:00: mouth at [place] 00 bedtime as Medical needed for Branch Insomnia. traZODone 2020-0 Yes [id number] 100mg Take 1 [facility] 100 mg 9-21 tablet by ity of tablet 00:00: mouth at [place] 00 bedtime as Medical needed for Branch Insomnia. traZODone 2020-0 Yes [id number] 100mg Take 1 [facility] 100 mg 9-21 tablet by ity of tablet 00:00: mouth at [place] 00 bedtime as Medical needed for Branch Insomnia. traZODone 2020-0 Yes [id number] 100mg Take 1 [facility] 100 mg 9-21 tablet by ity of tablet 00:00: mouth at [place] 00 bedtime as Medical needed for Branch Insomnia. traZODone 2020-0 Yes [id number] 100mg Take 1 [facility] 100 mg 9-21 tablet by ity of tablet 00:00: mouth at [place] 00 bedtime as Medical needed for Branch Insomnia. traZODone 2020-0 Yes [id number] 100mg Take 1 [facility] 100 mg 9-21 tablet by ity of tablet 00:00: mouth at [place] 00 bedtime as Medical needed for Branch Insomnia. traZODone 2020-0 Yes [id number] 100mg Take 1 [facility] 100 mg 9-21 tablet by ity of tablet 00:00: mouth at [place] 00 bedtime as Medical needed for Branch Insomnia. traZODone 2020-0 Yes [id number] 100mg Take 1 [facility] 100 mg 9-21 tablet by ity of tablet 00:00: mouth at [place] 00 bedtime as Medical needed for Branch Insomnia. traZODone 2020-0 Yes [id number] 100mg Take 1 [facility] 100 mg 9-21 tablet by ity of tablet 00:00: mouth at [place] 00 bedtime as Medical needed for Branch Insomnia. traZODone 2020-0 Yes [id number] 100mg Take 1 [facility] 100 mg 9-21 tablet by ity of tablet 00:00: mouth at [place] 00 bedtime as Medical needed for Branch Insomnia. traZODone 2020-0 Yes [id number] 100mg Take 1 [facility] 100 mg 9-21 tablet by ity of tablet 00:00: mouth at [place] 00 bedtime as Medical needed for Branch Insomnia. traZODone 2020-0 Yes [id number] 100mg Take 1 [facility] 100 mg 9-21 tablet by ity of tablet 00:00: mouth at [place] 00 bedtime as Medical needed for Branch Insomnia. traZODone 2020-0 Yes [id number] 100mg Take 1 [facility] 100 mg 9-21 tablet by ity of tablet 00:00: mouth at [place] 00 bedtime as Medical needed for Branch Insomnia. traZODone 2020-0 Yes [id number] 100mg Take 1 [facility] 100 mg 9-21 tablet by ity of tablet 00:00: mouth at [place] 00 bedtime as Medical needed for Branch Insomnia. traZODone 2020-0 Yes [id number] 100mg Take 1 [facility] 100 mg 9-21 tablet by ity of tablet 00:00: mouth at [place] [address] bedtime as Medical needed for Branch Insomnia. traZODone 2020-0 Yes [id number] 100mg Take 1 [facility] 100 mg 9-21 tablet by ity of tablet 00:00: mouth at [place] [address] bedtime as Medical needed for Branch Insomnia. traZODone 2020-0 Yes [id number] 100mg Take 1 [facility] 100 mg 9-21 tablet by ity of tablet 00:00: mouth at [place] [address] bedtime as Medical needed for Branch Insomnia. traZODone 2020-0 Yes [id number] 100mg Take 1 [facility] 100 mg 9-21 tablet by ity of tablet 00:00: mouth at [place] [address] bedtime as Medical needed for Branch Insomnia. traZODone 2020-0 Yes [id number] 100mg Take 1 [facility] 100 mg 9-21 tablet by ity of tablet 00:00: mouth at [place] 00 bedtime as Medical needed for Branch Insomnia. traZODone 2020-0 Yes [id number] 100mg Take 1 [facility] 100 mg 9-21 tablet by ity of tablet 00:00: mouth at [place] 00 bedtime as Medical needed for Branch Insomnia. traZODone 2020-0 Yes [id number] 100mg Take 1 [facility] 100 mg 9-21 tablet by ity of tablet 00:00: mouth at [place] [address] bedtime as Medical needed for Branch Insomnia. traZODone 2020-0 Yes [id number] 100mg Take 1 [facility] 100 mg 9-21 tablet by ity of tablet 00:00: mouth at [place] [address] bedtime as Medical needed for Branch Insomnia. traZODone 2020-0 Yes [id number] 100mg Take 1 [facility] 100 mg 9-21 tablet by ity of tablet 00:00: mouth at [place] 00 bedtime as Medical needed for Branch Insomnia. traZODone 2020-0 Yes [id number] 100mg Take 1 [facility] 100 mg 9-21 tablet by ity of tablet 00:00: mouth at [place] 00 bedtime as Medical needed for Branch Insomnia. traZODone 2020-0 Yes [id number] 100mg Take 1 [facility] 100 mg 9-21 tablet by ity of tablet 00:00: mouth at [place] 00 bedtime as Medical needed for Branch Insomnia. traZODone 2020-0 Yes [id number] 100mg Take 1 [facility] 100 mg 9-21 tablet by ity of tablet 00:00: mouth at [place] [address] bedtime as Medical needed for Branch Insomnia. traZODone 2020-0 Yes [id number] 100mg Take 1 [facility] 100 mg 9-21 tablet by ity of tablet 00:00: mouth at [place] [address] bedtime as Medical needed for Branch Insomnia. traZODone 2020-0 Yes [id number] 100mg Take 1 [facility] 100 mg 9-21 tablet by ity of tablet 00:00: mouth at [place] [address] bedtime as Medical needed for Branch Insomnia. traZODone 2020-0 Yes [id number] 100mg Take 1 [facility] 100 mg 9-21 tablet by ity of tablet 00:00: mouth at [place] [address] bedtime as Medical needed for Branch Insomnia. traZODone 2020-0 Yes [id number] 100mg Take 1 [facility] 100 mg 9-21 tablet by ity of tablet 00:00: mouth at [place] 00 bedtime as Medical needed for Branch Insomnia. traZODone 2020-0 Yes [id number] 100mg Take 1 [facility] 100 mg 9-21 tablet by ity of tablet 00:00: mouth at [place] 00 bedtime as Medical needed for Branch Insomnia. traZODone 2020-0 Yes [id number] 100mg Take 1 [facility] 100 mg 9-21 tablet by ity of tablet 00:00: mouth at [place] [address] bedtime as Medical needed for Branch Insomnia. traZODone 2020-0 Yes [id number] 100mg Take 1 [facility] 100 mg 9-21 tablet by ity of tablet 00:00: mouth at [place] 00 bedtime as Medical needed for Branch Insomnia. traZODone 2019-0 Yes [id number] 100mg Take 1 [facility] 100 mg 9-21 tablet by ity of tablet 00:00: mouth at [place] 00 bedtime as Medical needed for Branch Insomnia. traZODone 2019-0 Yes [id number] 100mg Take 1 [facility] 100 mg 9-21 tablet by ity of tablet 00:00: mouth at [place] 00 bedtime as Medical needed for Branch Insomnia. traZODone 2019-0 Yes [id number] 100mg Take 1 [facility] 100 mg 9-21 tablet by ity of tablet 00:00: mouth at [place] 00 bedtime as Medical needed for Branch Insomnia. traZODone 2019-0 2020- No [id number] 100mg Take 1 [facility] 100 mg 9-21 -18 tablet by ity of tablet 00:00: 00:00 mouth at [place] 00 :00 bedtime as Medical needed for Branch Insomnia. losartan 25 2019-2019- No [id number] 25mg Take 1 [facility] mg tablet 06-07- tablet by ity of 00:00: 00:00 mouth [place] 00 :00 daily. Medical Branch NaCl 0.9% 2019-2019- No 1000mL at 999 Uni vers (NS) bolus 06-03- mL/hr, ity of infusion 20:30: 22:00 1,000 mL, [place] as 1,000 mL 00 :00 IV Medical Infusion, Branch ONCE, 1 dose, Sarah 06/03/20 at 1530, BASIL RAMELTEON 8 2019- Yes [id number] 8mg TAKE 1 [facility] mg tablet 9-16 TABLET BY ity o f 00:00: MOUTH AT [place] 00 BEDTIME Medical NEEDED FOR Branch INSOMNIA. STOP TRAZODONE. RAMELTEON 8 2019- Yes [id number] 8mg TAKE 1 [facility] mg tablet 9-16 TABLET BY ity o f 00:00: MOUTH AT [place] 00 BEDTIME Medical NEEDED FOR Branch INSOMNIA. STOP TRAZODONE. RAMELTEON 8 2019-0 Yes [id number] 8mg TAKE 1 [facility] mg tablet 9-16 TABLET BY ity o f 00:00: MOUTH AT [place] 00 BEDTIME Medical NEEDED FOR Branch INSOMNIA. STOP TRAZODONE. RAMELTEON 8 2019-0 2020- No [id number] 8mg TAKE 1 [facility] mg tablet 06-02 TABLET BY ity of 00:00: 00:00 MOUTH AT [place] 00 :00 BEDTIME Medical NEEDED FOR Branch INSOMNIA. STOP TRAZODONE. RAMELTEON 8 2019-0 2020- No [id number] 8mg TAKE 1 [facility] mg tablet 06-02 TABLET BY ity of 00:00: 00:00 MOUTH AT [place] 00 :00 BEDTIME Medical NEEDED FOR Branch INSOMNIA. STOP TRAZODONE. oxyCODONE-a 2019-0 2020- No 1{tbl} Take 1 U nivers cetaminophe 05-27 tablet by it y of n 7.5-325 22:39: 00:00 mouth [place] mg per 20 :00 (two) Medical tablet times Branch daily as needed for Pain. TRIAMTERENE 2020-0 Yes [id number] TAKE 2 [facility] -HYDROCHLOR 9-08 TABLETS BY it y of OTHIAZID 00:00: MOUTH [place] 37.5-25 mg 00 EVERY DAY Medi kacey tablet Branch TRIAMTERENE 2020-0 Yes [id number] TAKE 2 [facility] -HYDROCHLOR 9-08 TABLETS BY it y of OTHIAZID 00:00: MOUTH [place] 37.5-25 mg 00 EVERY DAY Medi kacey tablet Branch TRIAMTERENE 2020-0 Yes [id number] TAKE 2 [facility] -HYDROCHLOR 9-08 TABLETS BY it y of OTHIAZID 00:00: MOUTH [place] 37.5-25 mg 00 EVERY DAY Medi kacey tablet Branch TRIAMTERENE 2020-0 Yes [id number] TAKE 2 [facility] -HYDROCHLOR 9-08 TABLETS BY it y of OTHIAZID 00:00: MOUTH [place] 37.5-25 mg 00 EVERY DAY Medi kacey tablet Branch TRIAMTERENE 2020-0 Yes [id number] TAKE 2 [facility] -HYDROCHLOR 9-08 TABLETS BY it y of OTHIAZID 00:00: MOUTH [place] 37.5-25 mg 00 EVERY DAY Medi kacey tablet Branch TRIAMTERENE 2020-0 Yes [id number] TAKE 2 [facility] -HYDROCHLOR 9-08 TABLETS BY it y of OTHIAZID 00:00: MOUTH [place] 37.5-25 mg 00 EVERY DAY Medi [place]acey tablet Branch TRIAMTERENE 2020-0 Yes [id number] TAKE 2 [facility] -HYDROCHLOR 9-08 TABLETS BY it y of OTHIAZID 00:00: MOUTH [place] 37.5-25 mg 00 EVERY DAY Medi kacey tablet Branch TRIAMTERENE 2020-0 Yes [id number] TAKE 2 [facility] -HYDROCHLOR 9-08 TABLETS BY it y of OTHIAZID 00:00: MOUTH [place] 37.5-25 mg 00 EVERY DAY Medi kacey tablet Branch TRIAMTERENE 2020-0 Yes [id number] TAKE 2 [facility] -HYDROCHLOR 9-08 TABLETS BY it y of OTHIAZID 00:00: MOUTH [place] 37.5-25 mg 00 EVERY DAY Medi kacey tablet Branch TRIAMTERENE 2020-0 Yes [id number] TAKE 2 [facility] -HYDROCHLOR 9-08 TABLETS BY it y of OTHIAZID 00:00: MOUTH [place] 37.5-25 mg 00 EVERY DAY Medi kacey tablet Branch TRIAMTERENE 2020-0 Yes [id number] TAKE 2 [facility] -HYDROCHLOR 9-08 TABLETS BY it y of OTHIAZID 00:00: MOUTH [place] 37.5-25 mg 00 EVERY DAY Medi kacey tablet Branch TRIAMTERENE 2020-0 Yes [id number] TAKE 2 [facility] -HYDROCHLOR 9-08 TABLETS BY it y of OTHIAZID 00:00: MOUTH [place] 37.5-25 mg 00 EVERY DAY Medi kacey tablet Branch TRIAMTERENE 2020-0 Yes [id number] TAKE 2 [facility] -HYDROCHLOR 9-08 TABLETS BY it y of OTHIAZID 00:00: MOUTH [place] 37.5-25 mg 00 EVERY DAY Medi kacey tablet Branch TRIAMTERENE 2020-0 Yes [id number] TAKE 2 [facility] -HYDROCHLOR 9-08 TABLETS BY it y of OTHIAZID 00:00: MOUTH [place] 37.5-25 mg 00 EVERY DAY Medi kacey tablet Branch TRIAMTERENE 2020-0 Yes [id number] TAKE 2 [facility] -HYDROCHLOR 9-08 TABLETS BY it y of OTHIAZID 00:00: MOUTH [place] 37.5-25 mg 00 EVERY DAY Medi [place]acey tablet Branch TRIAMTERENE 2020-0 Yes [id number] TAKE 2 [facility] -HYDROCHLOR 9-08 TABLETS BY it y of OTHIAZID 00:00: MOUTH [place] 37.5-25 mg 00 EVERY DAY Medi [place]acey tablet Branch TRIAMTERENE 2020-0 Yes [id number] TAKE 2 [facility] -HYDROCHLOR 9-08 TABLETS BY it y of OTHIAZID 00:00: MOUTH [place] 37.5-25 mg 00 EVERY DAY Medi [place]acey tablet Branch TRIAMTERENE 2020-0 Yes [id number] TAKE 2 [facility] -HYDROCHLOR 9-08 TABLETS BY it y of OTHIAZID 00:00: MOUTH [place] 37.5-25 mg 00 EVERY DAY Medi [place]acey tablet Branch TRIAMTERENE 2020-0 Yes [id number] TAKE 2 [facility] -HYDROCHLOR 9-08 TABLETS BY it y of OTHIAZID 00:00: MOUTH [place] 37.5-25 mg 00 EVERY DAY Medi kacey tablet Branch TRIAMTERENE 2020-0 Yes [id number] TAKE 2 [facility] -HYDROCHLOR 9-08 TABLETS BY it y of OTHIAZID 00:00: MOUTH [place] 37.5-25 mg 00 EVERY DAY Medi kacey tablet Branch TRIAMTERENE 2020-0 Yes [id number] TAKE 2 [facility] -HYDROCHLOR 9-08 TABLETS BY it y of OTHIAZID 00:00: MOUTH [place] 37.5-25 mg 00 EVERY DAY Medi kacey tablet Branch TRIAMTERENE 2020-0 Yes [id number] TAKE 2 [facility] -HYDROCHLOR 9-08 TABLETS BY it y of OTHIAZID 00:00: MOUTH [place] 37.5-25 mg 00 EVERY DAY Medi kacey tablet Branch TRIAMTERENE 2020-0 Yes [id number] TAKE 2 [facility] -HYDROCHLOR 9-08 TABLETS BY it y of OTHIAZID 00:00: MOUTH [place] 37.5-25 mg 00 EVERY DAY Medi kacey tablet Branch TRIAMTERENE 2020-0 Yes [id number] TAKE 2 [facility] -HYDROCHLOR 9-08 TABLETS BY it y of OTHIAZID 00:00: MOUTH [place] 37.5-25 mg 00 EVERY DAY Medi kacey tablet Branch TRIAMTERENE 2020-0 Yes [id number] TAKE 2 [facility] -HYDROCHLOR 9-08 TABLETS BY it y of OTHIAZID 00:00: MOUTH [place] 37.5-25 mg 00 EVERY DAY Medi kacey tablet Branch TRIAMTERENE 2020-0 Yes [id number] TAKE 2 [facility] -HYDROCHLOR 9-08 TABLETS BY it y of OTHIAZID 00:00: MOUTH [place] 37.5-25 mg 00 EVERY DAY Medi kacey tablet Branch TRIAMTERENE 2020-0 Yes [id number] TAKE 2 [facility] -HYDROCHLOR 9-08 TABLETS BY it y of OTHIAZID 00:00: MOUTH [place] 37.5-25 mg 00 EVERY DAY Medi kacey tablet Branch TRIAMTERENE 2020-0 Yes [id number] TAKE 2 [facility] -HYDROCHLOR 9-08 TABLETS BY it y of OTHIAZID 00:00: MOUTH [place] 37.5-25 mg 00 EVERY DAY Medi kacey tablet Branch TRIAMTERENE 2020-0 Yes [id number] TAKE 2 [facility] -HYDROCHLOR 9-08 TABLETS BY it y of OTHIAZID 00:00: MOUTH [place] 37.5-25 mg 00 EVERY DAY Medi kacey tablet Branch TRIAMTERENE 2020-0 Yes [id number] TAKE 2 [facility] -HYDROCHLOR 9-08 TABLETS BY it y of OTHIAZID 00:00: MOUTH [place] 37.5-25 mg 00 EVERY DAY Medi kacey tablet Branch TRIAMTERENE 2020-0 Yes [id number] TAKE 2 [facility] -HYDROCHLOR 9-08 TABLETS BY it y of OTHIAZID 00:00: MOUTH [place] 37.5-25 mg 00 EVERY DAY Medi kacey tablet Branch TRIAMTERENE 2020-0 Yes [id number] TAKE 2 [facility] -HYDROCHLOR 9-08 TABLETS BY it y of OTHIAZID 00:00: MOUTH [place] 37.5-25 mg 00 EVERY DAY Medi kacey tablet Branch TRIAMTERENE 2020-0 Yes [id number] TAKE 2 [facility] -HYDROCHLOR 9-08 TABLETS BY it y of OTHIAZID 00:00: MOUTH [place] 37.5-25 mg 00 EVERY DAY Medi kacey tablet Branch TRIAMTERENE 2020-0 Yes [id number] TAKE 2 [facility] -HYDROCHLOR 9-08 TABLETS BY it y of OTHIAZID 00:00: MOUTH [place] 37.5-25 mg 00 EVERY DAY Medi kacey tablet Branch TRIAMTERENE 2020-0 2020- No [id number] TAKE 2 [facility] -HYDROCHLOR 9-08 12-07 TABLETS BY i ty of OTHIAZID 00:00: 00:00 MOUTH [place] 37.5-25 mg 00 :00 EVERY DAY Medi kacey tablet Branch TRIAMTERENE 2020-0 2020- No [id number] TAKE 2 [facility] -HYDROCHLOR 9-08 12-07 TABLETS BY i ty of OTHIAZID 00:00: 00:00 MOUTH [place] 37.5-25 mg 00 :00 EVERY DAY Medi kacey tablet Branch Dexlansopra 2020-0 Yes [id number] 60mg Take 1 [facility] zole 8-24 capsule by ity of (DEXILANT) 00:00: mouth [place] 60 mg 00 daily. Medical capsule STOP Branch ESOMEPRAZO LE. ramelteon 8 2020-0 Yes [id number] 8mg Take 1 [facility] mg tablet 8-24 tablet by [facility] o f 00:00: mouth at [place] 00 bedtime as Medical needed for Branch Insomnia. STOP TRAZODONE. Dexlansopra 2020-0 Yes [id number] 60mg Take 1 [facility] z[facility] 8-24 capsule by [facility] (DEXILANT) 00:00: mouth [place] 60 mg 00 daily. Medical capsule STOP Branch ESOMEPRAZO LE. ramelteon 8 2020-0 Yes [id number] 8mg Take 1 [facility] mg tablet 8-24 tablet by [facility] o f 00:00: mouth at [place] 00 bedtime as Medical needed for Branch Insomnia. STOP TRAZODONE. Dexlansopra 2020-0 Yes [id number] 60mg Take 1 [facility] zole 8-24 capsule by [facility] of (DEXILANT) 00:00: mouth [place] 60 mg 00 daily. Medical capsule STOP Branch ESOMEPRAZO LE. ramelteon 8 2020-0 Yes [id number] 8mg Take 1 [facility] mg tablet 8-24 tablet by [facility] o f 00:00: mouth at [place] 00 bedtime as Medical needed for Branch Insomnia. STOP TRAZODONE. Dexlansopra 2020-0 Yes [id number] 60mg Take 1 [facility] zole 8-24 capsule by [facility] of (DEXILANT) 00:00: mouth [place] 60 mg 00 daily. Medical capsule STOP Branch ESOMEPRAZO LE. ramelteon 8 2020-0 Yes [id number] 8mg Take 1 [facility] mg tablet 8-24 tablet by [facility] o f 00:00: mouth at [place] 00 bedtime as Medical needed for Branch Insomnia. STOP TRAZODONE. Dexlansopra 2020-0 Yes [id number] 60mg Take 1 [facility] zole 8-24 capsule by [facility] of (DEXILANT) 00:00: mouth [place] 60 mg 00 daily. Medical capsule STOP Branch ESOMEPRAZO LE. ramelteon 8 2020-0 Yes [id number] 8mg Take 1 [facility] mg tablet 8-24 tablet by [facility] o f 00:00: mouth at [place] 00 bedtime as Medical needed for Branch Insomnia. STOP TRAZODONE. Dexlansopra 2020-0 Yes [id number] 60mg Take 1 [facility] zole 8-24 capsule by [facility] of (DEXILANT) 00:00: mouth [place] 60 mg 00 daily. Medical capsule STOP Branch ESOMEPRAZO LE. Dexlansopra 2020-0 Yes [id number] 60mg Take 1 [facility] zole 8-24 capsule by [facility] of (DEXILANT) 00:00: mouth [place] 60 mg 00 daily. Medical capsule STOP Branch ESOMEPRAZO LE. Dexlansopra 2020-0 Yes [id number] 60mg Take 1 [facility] zole 8-24 capsule by [facility] of (DEXILANT) 00:00: mouth [place] 60 mg 00 daily. Medical capsule STOP Branch ESOMEPRAZO LE. Dexlansopra 2020-0 Yes [id number] 60mg Take 1 [facility] zole 8-24 capsule by [facility] of (DEXILANT) 00:00: mouth [place] 60 mg 00 daily. Medical capsule STOP Branch ESOMEPRAZO LE. Dexlansopra 2020-0 Yes [id number] 60mg Take 1 [facility] zole 8-24 capsule by [facility] of (DEXILANT) 00:00: mouth [place] 60 mg 00 daily. Medical capsule STOP Branch ESOMEPRAZO LE. Dexlansopra 2020-0 Yes [id number] 60mg Take 1 [facility] zole 8-24 capsule by [facility] of (DEXILANT) 00:00: mouth [place] 60 mg 00 daily. Medical capsule STOP Branch ESOMEPRAZO LE. Dexlansopra 2020-0 Yes [id number] 60mg Take 1 [facility] zole 8-24 capsule by [facility] of (DEXILANT) 00:00: mouth [place] 60 mg 00 daily. Medical capsule STOP Branch ESOMEPRAZO LE. Dexlansopra 2020-0 Yes [id number] 60mg Take 1 [facility] zole 8-24 capsule by [facility] of (DEXILANT) 00:00: mouth [place] 60 mg 00 daily. Medical capsule STOP Branch ESOMEPRAZO LE. Dexlansopra 2020-0 Yes [id number] 60mg Take 1 [facility] zole 8-24 capsule by [facility] of (DEXILANT) 00:00: mouth [place] 60 mg 00 daily. Medical capsule STOP Branch ESOMEPRAZO LE. Dexlansopra 2020-0 Yes [id number] 60mg Take 1 [facility] zole 8-24 capsule by [facility] of (DEXILANT) 00:00: mouth [place] 60 mg 00 daily. Medical capsule STOP Branch ESOMEPRAZO LE. Dexlansopra 2020-0 Yes [id number] 60mg Take 1 [facility] zole 8-24 capsule by [facility] of (DEXILANT) 00:00: mouth [place] 60 mg 00 daily. Medical capsule STOP Branch ESOMEPRAZO LE. Dexlansopra 2020-0 Yes [id number] 60mg Take 1 [facility] zole 8-24 capsule by [facility] of (DEXILANT) 00:00: mouth [place] 60 mg 00 daily. Medical capsule STOP Branch ESOMEPRAZO LE. Dexlansopra 2020-0 Yes [id number] 60mg Take 1 [facility] zole 8-24 capsule by [facility] of (DEXILANT) 00:00: mouth [place] 60 mg 00 daily. Medical capsule STOP Branch ESOMEPRAZO LE. Dexlansopra 2020-0 Yes [id number] 60mg Take 1 [facility] zole 8-24 capsule by [facility] of (DEXILANT) 00:00: mouth [place] 60 mg 00 daily. Medical capsule STOP Branch ESOMEPRAZO LE. Dexlansopra 2020-0 Yes [id number] 60mg Take 1 [facility] zole 8-24 capsule by [facility] of (DEXILANT) 00:00: mouth [place] 60 mg 00 daily. Medical capsule STOP Branch ESOMEPRAZO LE. Dexlansopra 2020-0 Yes [id number] 60mg Take 1 [facility] zole 8-24 capsule by [facility] of (DEXILANT) 00:00: mouth [place] 60 mg 00 daily. Medical capsule STOP Branch ESOMEPRAZO LE. Dexlansopra 2020-0 Yes [id number] 60mg Take 1 [facility] zole 8-24 capsule by [facility] of (DEXILANT) 00:00: mouth [place] 60 mg 00 daily. Medical capsule STOP Branch ESOMEPRAZO LE. Dexlansopra 2020-0 Yes [id number] 60mg Take 1 [facility] zole 8-24 capsule by [facility] of (DEXILANT) 00:00: mouth [place] 60 mg 00 daily. Medical capsule STOP Branch ESOMEPRAZO LE. Dexlansopra 2020-0 Yes [id number] 60mg Take 1 [facility] zole 8-24 capsule by [facility] of (DEXILANT) 00:00: mouth [place] 60 mg 00 daily. Medical capsule STOP Branch ESOMEPRAZO LE. Dexlansopra 2020-0 Yes [id number] 60mg Take 1 [facility] zole 8-24 capsule by [facility] of (DEXILANT) 00:00: mouth [place] 60 mg 00 daily. Medical capsule STOP Branch ESOMEPRAZO LE. Dexlansopra 2020-0 Yes [id number] 60mg Take 1 [facility] zole 8-24 capsule by [facility] of (DEXILANT) 00:00: mouth [place] 60 mg 00 daily. Medical capsule STOP Branch ESOMEPRAZO LE. Dexlansopra 2020-0 Yes [id number] 60mg Take 1 [facility] zole 8-24 capsule by [facility] of (DEXILANT) 00:00: mouth [place] 60 mg 00 daily. Medical capsule STOP Branch ESOMEPRAZO LE. Dexlansopra 2020-0 Yes [id number] 60mg Take 1 [facility] zole 8-24 capsule by [facility] of (DEXILANT) 00:00: mouth [place] 60 mg 00 daily. Medical capsule STOP Branch ESOMEPRAZO LE. Dexlansopra 2020-0 Yes [id number] 60mg Take 1 [facility] zole 8-24 capsule by [facility] of (DEXILANT) 00:00: mouth [place] 60 mg 00 daily. Medical capsule STOP Branch ESOMEPRAZO LE. Dexlansopra 2020-0 Yes [id number] 60mg Take 1 [facility] zole 8-24 capsule by [facility] of (DEXILANT) 00:00: mouth [place] 60 mg 00 daily. Medical capsule STOP Branch ESOMEPRAZO LE. Dexlansopra 2020-0 Yes [id number] 60mg Take 1 [facility] zole 8-24 capsule by [facility] of (DEXILANT) 00:00: mouth [place] 60 mg 00 daily. Medical capsule STOP Branch ESOMEPRAZO LE. Dexlansopra 2020-0 Yes [id number] 60mg Take 1 [facility] zole 8-24 capsule by [facility] of (DEXILANT) 00:00: mouth [place] 60 mg 00 daily. Medical capsule STOP Branch ESOMEPRAZO LE. Dexlansopra 2020-0 Yes [id number] 60mg Take 1 [facility] zole 8-24 capsule by [facility] of (DEXILANT) 00:00: mouth [place] 60 mg 00 daily. Medical capsule STOP Branch ESOMEPRAZO LE. Dexlansopra 2020-0 Yes [id number] 60mg Take 1 [facility] zole 8-24 capsule by [facility] of (DEXILANT) 00:00: mouth [place] 60 mg 00 daily. Medical capsule STOP Branch ESOMEPRAZO LE. Dexlansopra 2020-0 Yes [id number] 60mg Take 1 [facility] zole 8-24 capsule by [facility] of (DEXILANT) 00:00: mouth [place] 60 mg 00 daily. Medical capsule STOP Branch ESOMEPRAZO LE. Dexlansopra 2020-0 Yes [id number] 60mg Take 1 [facility] zole 8-24 capsule by [facility] of (DEXILANT) 00:00: mouth [place] 60 mg 00 daily. Medical capsule STOP Branch ESOMEPRAZO LE. Dexlansopra 2020-0 Yes [id number] 60mg Take 1 [facility] zole 8-24 capsule by [facility] of (DEXILANT) 00:00: mouth [place] 60 mg 00 daily. Medical capsule STOP Branch ESOMEPRAZO LE. Dexlansopra 2020-0 Yes [id number] 60mg Take 1 [facility] zole 8-24 capsule by [facility] of (DEXILANT) 00:00: mouth [place] 60 mg 00 daily. Medical capsule STOP Branch ESOMEPRAZO LE. Dexlansopra 2020-0 Yes [id number] 60mg Take 1 [facility] zole 8-24 capsule by [facility] of (DEXILANT) 00:00: mouth [place] 60 mg 00 daily. Medical capsule STOP Branch ESOMEPRAZO LE. Dexlansopra 2020-0 Yes [id number] 60mg Take 1 [facility] zole 8-24 capsule by [facility] of (DEXILANT) 00:00: mouth [place] 60 mg 00 daily. Medical capsule STOP Branch ESOMEPRAZO LE. Dexlansopra 2020-0 Yes [id number] 60mg Take 1 [facility] zole 8-24 capsule by [facility] of (DEXILANT) 00:00: mouth [place] 60 mg 00 daily. Medical capsule STOP Branch ESOMEPRAZO LE. Dexlansopra 2020-0 Yes [id number] 60mg Take 1 [facility] zole 8-24 capsule by [facility] of (DEXILANT) 00:00: mouth [place] 60 mg 00 daily. Medical capsule STOP Branch ESOMEPRAZO LE. Dexlansopra 2020-0 Yes [id number] 60mg Take 1 [facility] zole 8-24 capsule by [facility] of (DEXILANT) 00:00: mouth [place] 60 mg 00 daily. Medical capsule STOP Branch ESOMEPRAZO LE. Dexlansopra 2020-0 Yes [id number] 60mg Take 1 [facility] zole 8-24 capsule by [facility] of (DEXILANT) 00:00: mouth [place] 60 mg 00 daily. Medical capsule STOP Branch ESOMEPRAZO LE. Dexlansopra 2020-0 Yes [id number] 60mg Take 1 [facility] zole 8-24 capsule by [facility] of (DEXILANT) 00:00: mouth [place] 60 mg 00 daily. Medical capsule STOP Branch ESOMEPRAZO LE. Dexlansopra 2020-0 Yes [id number] 60mg Take 1 [facility] zole 8-24 capsule by [facility] of (DEXILANT) 00:00: mouth [place] 60 mg 00 daily. Medical capsule STOP Branch ESOMEPRAZO LE. Dexlansopra 2020-0 Yes [id number] 60mg Take 1 [facility] zole 8-24 capsule by [facility] of (DEXILANT) 00:00: mouth [place] 60 mg 00 daily. Medical capsule STOP Branch ESOMEPRAZO LE. Dexlansopra 2020-0 Yes [id number] 60mg Take 1 [facility] zole 8-24 capsule by [facility] of (DEXILANT) 00:00: mouth [place] 60 mg 00 daily. Medical capsule STOP Branch ESOMEPRAZO LE. Dexlansopra 2020-0 Yes [id number] 60mg Take 1 [facility] zole 8-24 capsule by [facility] of (DEXILANT) 00:00: mouth [place] 60 mg 00 daily. Medical capsule STOP Branch ESOMEPRAZO LE. Dexlansopra 2020-0 Yes [id number] 60mg Take 1 [facility] zole 8-24 capsule by [facility] of (DEXILANT) 00:00: mouth [place] 60 mg 00 daily. Medical capsule STOP Branch ESOMEPRAZO LE. Dexlansopra 2020-0 Yes [id number] 60mg Take 1 [facility] zole 8-24 capsule by [facility] of (DEXILANT) 00:00: mouth [place] 60 mg 00 daily. Medical capsule STOP Branch ESOMEPRAZO LE. Dexlansopra 2020-0 Yes [id number] 60mg Take 1 [facility] zole 8-24 capsule by [facility] of (DEXILANT) 00:00: mouth [place] 60 mg 00 daily. Medical capsule STOP Branch ESOMEPRAZO LE. Dexlansopra 2019-0 2020- No [id number] 60mg Take 1 [facility] zole 8-24 12-22 capsule by [facility] of (DEXILANT) 00:00: 00:00 mouth [place] 60 mg 00 :00 daily. Medical capsule STOP Branch ESOMEPRAZO LE. ramelteon 8 2019-0 2020- No [id number] 8mg Take 1 [facility] mg tablet 8-24 09-16 tablet by [facility] of 00:00: 00:00 mouth at [place] 00 :00 bedtime as Medical needed for Branch Insomnia. STOP TRAZODONE. IBANDRONATE 2020-0 Yes [id number] 150mg TAKE 1 [facility] 150 mg 7-31 TABLET BY [facility] of tablet 00:00: MOUTH ONCE [place] 00 EVERY Medical MONTH. Branch IBANDRONATE 2020-0 Yes [id number] 150mg TAKE 1 [facility] 150 mg 7-31 TABLET BY [facility] of tablet 00:00: MOUTH ONCE [place] 00 EVERY Medical MONTH. Branch IBANDRONATE 2020-0 Yes [id number] 150mg TAKE 1 [facility] 150 mg 7-31 TABLET BY [facility] of tablet 00:00: MOUTH ONCE [place] 00 EVERY Medical MONTH. Branch IBANDRONATE 2020-0 Yes [id number] 150mg TAKE 1 [facility] 150 mg 7-31 TABLET BY [facility] of tablet 00:00: MOUTH ONCE [place] 00 EVERY Medical MONTH. Branch IBANDRONATE 2020-0 Yes [id number] 150mg TAKE 1 [facility] 150 mg 7-31 TABLET BY [facility] of tablet 00:00: MOUTH ONCE [place] 00 EVERY Medical MONTH. Branch IBANDRONATE 2020-0 Yes [id number] 150mg TAKE 1 [facility] 150 mg 7-31 TABLET BY [facility] of tablet 00:00: MOUTH ONCE [place] 00 EVERY Medical MONTH. Branch IBANDRONATE 2020-0 Yes [id number] 150mg TAKE 1 [facility] 150 mg 7-31 TABLET BY [facility] of tablet 00:00: MOUTH ONCE [place] 00 EVERY Medical MONTH. Branch IBANDRONATE 2020-0 Yes [id number] 150mg TAKE 1 [facility] 150 mg 7-31 TABLET BY [facility] of tablet 00:00: MOUTH ONCE [place] 00 EVERY Medical MONTH. Branch IBANDRONATE 2020-0 Yes [id number] 150mg TAKE 1 [facility] 150 mg 7-31 TABLET BY [facility] of tablet 00:00: MOUTH ONCE [place] 00 EVERY Medical MONTH. Branch IBANDRONATE 2020-0 Yes [id number] 150mg TAKE 1 [facility] 150 mg 7-31 TABLET BY [facility] of tablet 00:00: MOUTH ONCE [place] 00 EVERY Medical MONTH. Branch IBANDRONATE 2020-0 Yes [id number] 150mg TAKE 1 [facility] 150 mg 7-31 TABLET BY [facility] of tablet 00:00: MOUTH ONCE [place] 00 EVERY Medical MONTH. Branch IBANDRONATE 2020-0 Yes [id number] 150mg TAKE 1 [facility] 150 mg 7-31 TABLET BY [facility] of tablet 00:00: MOUTH ONCE [place] 00 EVERY Medical MONTH. Branch IBANDRONATE 2020-0 Yes [id number] 150mg TAKE 1 [facility] 150 mg 7-31 TABLET BY [facility] of tablet 00:00: MOUTH ONCE [place] 00 EVERY Medical MONTH. Branch IBANDRONATE 2020-0 Yes [id number] 150mg TAKE 1 [facility] 150 mg 7-31 TABLET BY [facility] of tablet 00:00: MOUTH ONCE [place] 00 EVERY Medical MONTH. Branch IBANDRONATE 2020-0 Yes [id number] 150mg TAKE 1 [facility] 150 mg 7-31 TABLET BY [facility] of tablet 00:00: MOUTH ONCE [place] 00 EVERY Medical MONTH. Branch IBANDRONATE 2020-0 Yes [id number] 150mg TAKE 1 [facility] 150 mg 7-31 TABLET BY [facility] of tablet 00:00: MOUTH ONCE [place] 00 EVERY Medical MONTH. Branch IBANDRONATE 2020-0 Yes [id number] 150mg TAKE 1 [facility] 150 mg 7-31 TABLET BY [facility] of tablet 00:00: MOUTH ONCE [place] 00 EVERY Medical MONTH. Branch IBANDRONATE 2020-0 Yes [id number] 150mg TAKE 1 [facility] 150 mg 7-31 TABLET BY [facility] of tablet 00:00: MOUTH ONCE [place] 00 EVERY Medical MONTH. Branch IBANDRONATE 2020-0 Yes [id number] 150mg TAKE 1 [facility] 150 mg 7-31 TABLET BY [facility] of tablet 00:00: MOUTH ONCE [place] 00 EVERY Medical MONTH. Branch IBANDRONATE 2020-0 Yes [id number] 150mg TAKE 1 [facility] 150 mg 7-31 TABLET BY [facility] of tablet 00:00: MOUTH ONCE [place] 00 EVERY Medical MONTH. Branch IBANDRONATE 2020-0 Yes [id number] 150mg TAKE 1 [facility] 150 mg 7-31 TABLET BY [facility] of tablet 00:00: MOUTH ONCE [place] 00 EVERY Medical MONTH. Branch IBANDRONATE 2020-0 Yes [id number] 150mg TAKE 1 [facility] 150 mg 7-31 TABLET BY [facility] of tablet 00:00: MOUTH ONCE [place] 00 EVERY Medical MONTH. Branch IBANDRONATE 2020-0 Yes [id number] 150mg TAKE 1 [facility] 150 mg 7-31 TABLET BY [facility] of tablet 00:00: MOUTH ONCE [place] 00 EVERY Medical MONTH. Branch IBANDRONATE 2020-0 Yes [id number] 150mg TAKE 1 [facility] 150 mg 7-31 TABLET BY [facility] of tablet 00:00: MOUTH ONCE [place] 00 EVERY Medical MONTH. Branch IBANDRONATE 2020-0 Yes [id number] 150mg TAKE 1 [facility] 150 mg 7-31 TABLET BY [facility] of tablet 00:00: MOUTH ONCE [place] 00 EVERY Medical MONTH. Branch IBANDRONATE 2020-0 Yes [id number] 150mg TAKE 1 [facility] 150 mg 7-31 TABLET BY [facility] of tablet 00:00: MOUTH ONCE [place] 00 EVERY Medical MONTH. Branch IBANDRONATE 2020-0 Yes [id number] 150mg TAKE 1 [facility] 150 mg 7-31 TABLET BY [facility] of tablet 00:00: MOUTH ONCE [place] 00 EVERY Medical MONTH. Branch IBANDRONATE 2020-0 Yes [id number] 150mg TAKE 1 [facility] 150 mg 7-31 TABLET BY [facility] of tablet 00:00: MOUTH ONCE [place] 00 EVERY Medical MONTH. Branch IBANDRONATE 2020-0 Yes [id number] 150mg TAKE 1 [facility] 150 mg 7-31 TABLET BY [facility] of tablet 00:00: MOUTH ONCE [place] 00 EVERY Medical MONTH. Branch IBANDRONATE 2020-0 Yes [id number] 150mg TAKE 1 [facility] 150 mg 7-31 TABLET BY [facility] of tablet 00:00: MOUTH ONCE [place] 00 EVERY Medical MONTH. Branch IBANDRONATE 2020-0 Yes [id number] 150mg TAKE 1 [facility] 150 mg 7-31 TABLET BY [facility] of tablet 00:00: MOUTH ONCE [place] 00 EVERY Medical MONTH. Branch IBANDRONATE 2020-0 Yes [id number] 150mg TAKE 1 [facility] 150 mg 7-31 TABLET BY [facility] of tablet 00:00: MOUTH ONCE [place] 00 EVERY Medical MONTH. Branch IBANDRONATE 2020-0 Yes [id number] 150mg TAKE 1 [facility] 150 mg 7-31 TABLET BY [facility] of tablet 00:00: MOUTH ONCE [place] 00 EVERY Medical MONTH. Branch IBANDRONATE 2020-0 Yes [id number] 150mg TAKE 1 [facility] 150 mg 7-31 TABLET BY [facility] of tablet 00:00: MOUTH ONCE [place] 00 EVERY Medical MONTH. Branch IBANDRONATE 2020-0 Yes [id number] 150mg TAKE 1 [facility] 150 mg 7-31 TABLET BY [facility] of tablet 00:00: MOUTH ONCE [place] 00 EVERY Medical MONTH. Branch IBANDRONATE 2020-0 Yes [id number] 150mg TAKE 1 [facility] 150 mg 7-31 TABLET BY [facility] of tablet 00:00: MOUTH ONCE [place] 00 EVERY Medical MONTH. Branch IBANDRONATE 2020-0 Yes [id number] 150mg TAKE 1 [facility] 150 mg 7-31 TABLET BY [facility] of tablet 00:00: MOUTH ONCE [place] 00 EVERY Medical MONTH. Branch IBANDRONATE 2020-0 Yes [id number] 150mg TAKE 1 [facility] 150 mg 7-31 TABLET BY [facility] of tablet 00:00: MOUTH ONCE [place] 00 EVERY Medical MONTH. Branch IBANDRONATE 2020-0 Yes [id number] 150mg TAKE 1 [facility] 150 mg 7-31 TABLET BY [facility] of tablet 00:00: MOUTH ONCE [place] 00 EVERY Medical MONTH. Branch IBANDRONATE 2020-0 Yes [id number] 150mg TAKE 1 [facility] 150 mg 7-31 TABLET BY [facility] of tablet 00:00: MOUTH ONCE [place] 00 EVERY Medical MONTH. Branch IBANDRONATE 2020-0 Yes [id number] 150mg TAKE 1 [facility] 150 mg 7-31 TABLET BY [facility] of tablet 00:00: MOUTH ONCE [place] 00 EVERY Medical MONTH. Branch IBANDRONATE 2020-0 Yes [id number] 150mg TAKE 1 [facility] 150 mg 7-31 TABLET BY [facility] of tablet 00:00: MOUTH ONCE [place] 00 EVERY Medical MONTH. Branch IBANDRONATE 2020-0 Yes [id number] 150mg TAKE 1 [facility] 150 mg 7-31 TABLET BY [facility] of tablet 00:00: MOUTH ONCE [place] 00 EVERY Medical MONTH. Branch IBANDRONATE 2020-0 Yes [id number] 150mg TAKE 1 [facility] 150 mg 7-31 TABLET BY [facility] of tablet 00:00: MOUTH ONCE [place] 00 EVERY Medical MONTH. Branch IBANDRONATE 2020-0 Yes [id number] 150mg TAKE 1 [facility] 150 mg 7-31 TABLET BY [facility] of tablet 00:00: MOUTH ONCE [place] 00 EVERY Medical MONTH. Branch IBANDRONATE 2020-0 Yes [id number] 150mg TAKE 1 [facility] 150 mg 7-31 TABLET BY [facility] of tablet 00:00: MOUTH ONCE [place] 00 EVERY Medical MONTH. Branch IBANDRONATE 2020-0 Yes [id number] 150mg TAKE 1 [facility] 150 mg 7-31 TABLET BY [facility] of tablet 00:00: MOUTH ONCE [place] 00 EVERY Medical MONTH. Branch IBANDRONATE 2020-0 Yes [id number] 150mg TAKE 1 [facility] 150 mg 7-31 TABLET BY [facility] of tablet 00:00: MOUTH ONCE [place] 00 EVERY Medical MONTH. Branch IBANDRONATE 2020-0 Yes [id number] 150mg TAKE 1 [facility] 150 mg 7-31 TABLET BY [facility] of tablet 00:00: MOUTH ONCE [place] 00 EVERY Medical MONTH. Branch IBANDRONATE 2020-0 Yes [id number] 150mg TAKE 1 [facility] 150 mg 7-31 TABLET BY [facility] of tablet 00:00: MOUTH ONCE [place] 00 EVERY Medical MONTH. Branch IBANDRONATE 2020-0 Yes [id number] 150mg TAKE 1 [facility] 150 mg 7-31 TABLET BY [facility] of tablet 00:00: MOUTH ONCE [place] 00 EVERY Medical MONTH. Branch IBANDRONATE 2020-0 Yes [id number] 150mg TAKE 1 [facility] 150 mg 7-31 TABLET BY [facility] of tablet 00:00: MOUTH ONCE [place] 00 EVERY Medical MONTH. Branch IBANDRONATE 2020-0 Yes [id number] 150mg TAKE 1 [facility] 150 mg 7-31 TABLET BY [facility] of tablet 00:00: MOUTH ONCE [place] 00 EVERY Medical MONTH. Branch IBANDRONATE 2020-0 Yes [id number] 150mg TAKE 1 [facility] 150 mg 7-31 TABLET BY [facility] of tablet 00:00: MOUTH ONCE [place] 00 EVERY Medical MONTH. Branch IBANDRONATE 2020-0 Yes [id number] 150mg TAKE 1 [facility] 150 mg 7-31 TABLET BY [facility] of tablet 00:00: MOUTH ONCE [place] 00 EVERY Medical MONTH. Branch IBANDRONATE 2020-0 Yes [id number] 150mg TAKE 1 [facility] 150 mg 7-31 TABLET BY [facility] of tablet 00:00: MOUTH ONCE [place] 00 EVERY Medical MONTH. Branch IBANDRONATE 2020-0 Yes [id number] 150mg TAKE 1 [facility] 150 mg 7-31 TABLET BY [facility] of tablet 00:00: MOUTH ONCE [place] 00 EVERY Medical MONTH. Branch IBANDRONATE 2020-0 Yes [id number] 150mg TAKE 1 [facility] 150 mg 7-31 TABLET BY [facility] of tablet 00:00: MOUTH ONCE [place] 00 EVERY Medical MONTH. Branch IBANDRONATE 2020-0 Yes [id number] 150mg TAKE 1 [facility] 150 mg 7-31 TABLET BY [facility] of tablet 00:00: MOUTH ONCE [place] 00 EVERY Medical MONTH. Branch IBANDRONATE 2020-0 Yes [id number] 150mg TAKE 1 [facility] 150 mg 7-31 TABLET BY [facility] of tablet 00:00: MOUTH ONCE [place] 00 EVERY Medical MONTH. Branch IBANDRONATE 2020-0 Yes [id number] 150mg TAKE 1 [facility] 150 mg 7-31 TABLET BY [facility] of tablet 00:00: MOUTH ONCE [place] 00 EVERY Medical MONTH. Branch IBANDRONATE 2020-0 Yes [id number] 150mg TAKE 1 [facility] 150 mg 7-31 TABLET BY [facility] of tablet 00:00: MOUTH ONCE [place] 00 EVERY Medical MONTH. Branch IBANDRONATE 2020-0 Yes [id number] 150mg TAKE 1 [facility] 150 mg 7-31 TABLET BY [facility] of tablet 00:00: MOUTH ONCE [place] 00 EVERY Medical MONTH. Branch IBANDRONATE 2020-0 Yes [id number] 150mg TAKE 1 [facility] 150 mg 7-31 TABLET BY [facility] of tablet 00:00: MOUTH ONCE [place] 00 EVERY Medical MONTH. Branch IBANDRONATE 2020-0 Yes [id number] 150mg TAKE 1 [facility] 150 mg 7-31 TABLET BY [facility] of tablet 00:00: MOUTH ONCE [place] 00 EVERY Medical MONTH. Branch IBANDRONATE 2020-0 Yes [id number] 150mg TAKE 1 [facility] 150 mg 7-31 TABLET BY [facility] of tablet 00:00: MOUTH ONCE [place] 00 EVERY Medical MONTH. Branch IBANDRONATE 2020-0 Yes [id number] 150mg TAKE 1 [facility] 150 mg 7-31 TABLET BY [facility] of tablet 00:00: MOUTH ONCE [place] 00 EVERY Medical MONTH. Branch IBANDRONATE 2020-0 Yes [id number] 150mg TAKE 1 [facility] 150 mg 7-31 TABLET BY [facility] of tablet 00:00: MOUTH ONCE [place] 00 EVERY Medical MONTH. Branch IBANDRONATE 2020-0 Yes [id number] 150mg TAKE 1 [facility] 150 mg 7-31 TABLET BY [facility] of tablet 00:00: MOUTH ONCE [place] 00 EVERY Medical MONTH. Branch IBANDRONATE 2020-0 Yes [id number] 150mg TAKE 1 [facility] 150 mg 7-31 TABLET BY [facility] of tablet 00:00: MOUTH ONCE [place] 00 EVERY Medical MONTH. Branch IBANDRONATE 2020-0 Yes [id number] 150mg TAKE 1 [facility] 150 mg 7-31 TABLET BY [facility] of tablet 00:00: MOUTH ONCE [place] 00 EVERY Medical MONTH. Branch IBANDRONATE 2020-0 Yes [id number] 150mg TAKE 1 [facility] 150 mg 7-31 TABLET BY [facility] of tablet 00:00: MOUTH ONCE [place] 00 EVERY Medical MONTH. Branch IBANDRONATE 2020-0 Yes [id number] 150mg TAKE 1 [facility] 150 mg 7-31 TABLET BY [facility] of tablet 00:00: MOUTH ONCE [place] 00 EVERY Medical MONTH. Branch IBANDRONATE 2020-0 Yes [id number] 150mg TAKE 1 [facility] 150 mg 7-31 TABLET BY [facility] of tablet 00:00: MOUTH ONCE [place] 00 EVERY Medical MONTH. Branch IBANDRONATE 2020-0 Yes [id number] 150mg TAKE 1 [facility] 150 mg 7-31 TABLET BY [facility] of tablet 00:00: MOUTH ONCE [place] 00 EVERY Medical MONTH. Branch IBANDRONATE 2020-0 Yes [id number] 150mg TAKE 1 [facility] 150 mg 7-31 TABLET BY [facility] of tablet 00:00: MOUTH ONCE [place] 00 EVERY Medical MONTH. Branch IBANDRONATE 2020-0 Yes [id number] 150mg TAKE 1 [facility] 150 mg 7-31 TABLET BY [facility] of tablet 00:00: MOUTH ONCE [place] 00 EVERY Medical MONTH. Branch IBANDRONATE 2020-0 Yes [id number] 150mg TAKE 1 [facility] 150 mg 7-31 TABLET BY [facility] of tablet 00:00: MOUTH ONCE [place] 00 EVERY Medical MONTH. Branch IBANDRONATE 2020-0 Yes [id number] 150mg TAKE 1 [facility] 150 mg 7-31 TABLET BY [facility] of tablet 00:00: MOUTH ONCE [place] 00 EVERY Medical MONTH. Branch IBANDRONATE 2020-0 Yes [id number] 150mg TAKE 1 [facility] 150 mg 7-31 TABLET BY [facility] of tablet 00:00: MOUTH ONCE [place] 00 EVERY Medical MONTH. Branch IBANDRONATE 2020-0 Yes [id number] 150mg TAKE 1 [facility] 150 mg 7-31 TABLET BY [facility] of tablet 00:00: MOUTH ONCE [place] 00 EVERY Medical MONTH. Branch IBANDRONATE 2020-0 Yes [id number] 150mg TAKE 1 [facility] 150 mg 7-31 TABLET BY [facility] of tablet 00:00: MOUTH ONCE [place] 00 EVERY Medical MONTH. Branch IBANDRONATE 2020-0 Yes [id number] 150mg TAKE 1 [facility] 150 mg 7-31 TABLET BY [facility] of tablet 00:00: MOUTH ONCE [place] 00 EVERY Medical MONTH. Branch IBANDRONATE 2020-0 Yes [id number] 150mg TAKE 1 [facility] 150 mg 7-31 TABLET BY [facility] of tablet 00:00: MOUTH ONCE [place] 00 EVERY Medical MONTH. Branch IBANDRONATE 2020-0 Yes [id number] 150mg TAKE 1 [facility] 150 mg 7-31 TABLET BY [facility] of tablet 00:00: MOUTH ONCE [place] 00 EVERY Medical MONTH. Branch IBANDRONATE 2020-0 Yes [id number] 150mg TAKE 1 [facility] 150 mg 7-31 TABLET BY [facility] of tablet 00:00: MOUTH ONCE [place] 00 EVERY Medical MONTH. Branch IBANDRONATE 2020-0 Yes [id number] 150mg TAKE 1 [facility] 150 mg 7-31 TABLET BY [facility] of tablet 00:00: MOUTH ONCE [place] 00 EVERY Medical MONTH. Branch IBANDRONATE 2020-0 Yes [id number] 150mg TAKE 1 [facility] 150 mg 7-31 TABLET BY [facility] of tablet 00:00: MOUTH ONCE [place] 00 EVERY Medical MONTH. Branch IBANDRONATE 2020-0 Yes [id number] 150mg TAKE 1 [facility] 150 mg 7-31 TABLET BY [facility] of tablet 00:00: MOUTH ONCE [place] 00 EVERY Medical MONTH. Branch IBANDRONATE 2020-0 Yes [id number] 150mg TAKE 1 [facility] 150 mg 7-31 TABLET BY [facility] of tablet 00:00: MOUTH ONCE [place] 00 EVERY Medical MONTH. Branch IBANDRONATE 2020-0 Yes [id number] 150mg TAKE 1 [facility] 150 mg 7-31 TABLET BY [facility] of tablet 00:00: MOUTH ONCE [place] 00 EVERY Medical MONTH. Branch IBANDRONATE 2020-0 Yes [id number] 150mg TAKE 1 [facility] 150 mg 7-31 TABLET BY [facility] of tablet 00:00: MOUTH ONCE [place] 00 EVERY Medical MONTH. Branch IBANDRONATE 2020-0 Yes [id number] 150mg TAKE 1 [facility] 150 mg 7-31 TABLET BY [facility] of tablet 00:00: MOUTH ONCE [place] 00 EVERY Medical MONTH. Branch IBANDRONATE 2020-0 Yes [id number] 150mg TAKE 1 [facility] 150 mg 7-31 TABLET BY [facility] of tablet 00:00: MOUTH ONCE [place] 00 EVERY Medical MONTH. Branch IBANDRONATE 2020-0 Yes [id number] 150mg TAKE 1 [facility] 150 mg 7-31 TABLET BY [facility] of tablet 00:00: MOUTH ONCE [place] 00 EVERY Medical MONTH. Branch IBANDRONATE 2020-0 Yes [id number] 150mg TAKE 1 [facility] 150 mg 7-31 TABLET BY [facility] of tablet 00:00: MOUTH ONCE [place] 00 EVERY Medical MONTH. Branch IBANDRONATE 2020-0 Yes [id number] 150mg TAKE 1 [facility] 150 mg 7-31 TABLET BY [facility] of tablet 00:00: MOUTH ONCE [place] 00 EVERY Medical MONTH. Branch IBANDRONATE 2020-0 Yes [id number] 150mg TAKE 1 [facility] 150 mg 7-31 TABLET BY [facility] of tablet 00:00: MOUTH ONCE [place] 00 EVERY Medical MONTH. Branch ESOMEPRAZOL 2020-0 Yes [id number] TAKE 1 [facility] E 40 mg 7-28 CAPSULE BY ity of capsule 00:00: MOUTH [place] 00 DAILY WITH Medical BREAKFAST. Branch BRAND MEDICALLY NECESSARY. ESOMEPRAZOL 2020-0 Yes [id number] TAKE 1 [facility] E 40 mg 7-28 CAPSULE BY ity of capsule 00:00: MOUTH [place] 00 DAILY WITH Medical BREAKFAST. Branch BRAND MEDICALLY NECESSARY. ESOMEPRAZOL 2020-0 2020- No [id number] TAKE 1 [facility] E 40 mg 7-28 08-24 CAPSULE BY ity o f capsule 00:00: 00:00 MOUTH [place] 00 :00 DAILY WITH Medical BREAKFAST. Branch BRAND MEDICALLY NECESSARY. ESOMEPRAZOL 2019-0 2020- No [id number] TAKE 1 [facility] E 40 mg 7-28 08-24 CAPSULE BY ity o f capsule 00:00: 00:00 MOUTH [place] 00 :00 DAILY WITH Medical BREAKFAST. Branch BRAND MEDICALLY NECESSARY. ESOMEPRAZOL 2019-0 2020- No [id number] TAKE 1 [facility] E 40 mg 7-28 08-24 CAPSULE BY ity o f capsule 00:00: 00:00 MOUTH [place] 00 :00 DAILY WITH Medical BREAKFAST. Branch BRAND MEDICALLY NECESSARY. TRIAMTERENE 2020-0 Yes [id number] TAKE 2 [facility] -HYDROCHLOR 6-03 TABLETS BY it y of OTHIAZID 00:00: MOUTH [place] 37.5-25 mg 00 DAILY. Medical tablet Branch TRIAMTERENE 2020-0 Yes [id number] TAKE 2 [facility] -HYDROCHLOR 6-03 TABLETS BY it y of OTHIAZID 00:00: MOUTH [place] 37.5-25 mg 00 DAILY. Medical tablet Branch TRIAMTERENE 2020-0 Yes [id number] TAKE 2 [facility] -HYDROCHLOR 6-03 TABLETS BY it y of OTHIAZID 00:00: MOUTH [place] 37.5-25 mg 00 DAILY. Medical tablet Branch TRIAMTERENE 2020-0 Yes [id number] TAKE 2 [facility] -HYDROCHLOR 6-03 TABLETS BY it y of OTHIAZID 00:00: MOUTH [place] 37.5-25 mg 00 DAILY. Medical tablet Branch TRIAMTERENE 2020-0 Yes [id number] TAKE 2 [facility] -HYDROCHLOR 6-03 TABLETS BY it y of OTHIAZID 00:00: MOUTH [place] 37.5-25 mg 00 DAILY. Medical tablet Branch TRIAMTERENE 2020-0 Yes [id number] TAKE 2 [facility] -HYDROCHLOR 6-03 TABLETS BY it y of OTHIAZID 00:00: MOUTH [place] 37.5-25 mg 00 DAILY. Medical tablet Branch TRIAMTERENE 2020-0 Yes [id number] TAKE 2 [facility] -HYDROCHLOR 6-03 TABLETS BY it y of OTHIAZID 00:00: MOUTH [place] 37.5-25 mg 00 DAILY. Medical tablet Branch TRIAMTERENE 2020-0 Yes [id number] TAKE 2 [facility] -HYDROCHLOR 6-03 TABLETS BY it y of OTHIAZID 00:00: MOUTH [place] 37.5-25 mg 00 DAILY. Medical tablet Branch TRIAMTERENE 2020-0 Yes [id number] TAKE 2 [facility] -HYDROCHLOR 6-03 TABLETS BY it y of OTHIAZID 00:00: MOUTH [place] 37.5-25 mg 00 DAILY. Medical tablet Branch TRIAMTERENE 2020-0 Yes [id number] TAKE 2 [facility] -HYDROCHLOR 6-03 TABLETS BY it y of OTHIAZID 00:00: MOUTH [place] 37.5-25 mg 00 DAILY. Medical tablet Branch TRIAMTERENE 2020-0 2020- No [id number] TAKE 2 [facility] -HYDROCHLOR 6-03 09-08 TABLETS BY i ty of OTHIAZID 00:00: 00:00 MOUTH [place] 37.5-25 mg 00 :00 DAILY. Medical tablet Branch TRIAMTERENE 2020-0 2020- No [id number] TAKE 2 [facility] -HYDROCHLOR 6-03 09-08 TABLETS BY i ty of OTHIAZID 00:00: 00:00 MOUTH [place] 37.5-25 mg 00 :00 DAILY. Medical tablet Branch TIZANIDINE 2020-0 Yes [id number] 4mg TAKE 1-2 [facility] 4 mg tablet 5-07 TABLETS BY it y of 00:00: MOUTH [place] 00 EVERY 8 Medical (EIGHT) Branch HOURS NEEDED (MUSCLE PAIN OR SPASM). TIZANIDINE 2020-0 Yes [id number] 4mg TAKE 1-2 [facility] 4 mg tablet 5-07 TABLETS BY it y of 00:00: MOUTH [place] 00 EVERY 8 Medical (EIGHT) Branch HOURS NEEDED (MUSCLE PAIN OR SPASM). TIZANIDINE 2020-0 Yes [id number] 4mg TAKE 1-2 [facility] 4 mg tablet 5-07 TABLETS BY it y of 00:00: MOUTH [place] 00 EVERY 8 Medical (EIGHT) Branch HOURS NEEDED (MUSCLE PAIN OR SPASM). TIZANIDINE 2020-0 Yes [id number] 4mg TAKE 1-2 [facility] 4 mg tablet 5-07 TABLETS BY it y of 00:00: MOUTH [place] 00 EVERY 8 Medical (EIGHT) Branch HOURS NEEDED (MUSCLE PAIN OR SPASM). TIZANIDINE 2020-0 Yes [id number] 4mg TAKE 1-2 [facility] 4 mg tablet 5-07 TABLETS BY it y of 00:00: MOUTH [place] 00 EVERY 8 Medical (EIGHT) Branch HOURS NEEDED (MUSCLE PAIN OR SPASM). TIZANIDINE 2020-0 Yes [id number] 4mg TAKE 1-2 [facility] 4 mg tablet 5-07 TABLETS BY it y of 00:00: MOUTH [place] 00 EVERY 8 Medical (EIGHT) Branch HOURS NEEDED (MUSCLE PAIN OR SPASM). TIZANIDINE 2020-0 Yes [id number] 4mg TAKE 1-2 [facility] 4 mg tablet 5-07 TABLETS BY it y of 00:00: MOUTH [place] 00 EVERY 8 Medical (EIGHT) Branch HOURS NEEDED (MUSCLE PAIN OR SPASM). TIZANIDINE 2020-0 Yes [id number] 4mg TAKE 1-2 [facility] 4 mg tablet 5-07 TABLETS BY it y of 00:00: MOUTH [place] 00 EVERY 8 Medical (EIGHT) Branch HOURS NEEDED (MUSCLE PAIN OR SPASM). TIZANIDINE 2020-0 Yes [id number] 4mg TAKE 1-2 [facility] 4 mg tablet 5-07 TABLETS BY it y of 00:00: MOUTH [place] 00 EVERY 8 Medical (EIGHT) Branch HOURS NEEDED (MUSCLE PAIN OR SPASM). TIZANIDINE 2020-0 Yes [id number] 4mg TAKE 1-2 [facility] 4 mg tablet 5-07 TABLETS BY it y of 00:00: MOUTH [place] 00 EVERY 8 Medical (EIGHT) Branch HOURS NEEDED (MUSCLE PAIN OR SPASM). TIZANIDINE 2020-0 Yes [id number] 4mg TAKE 1-2 [facility] 4 mg tablet 5-07 TABLETS BY it y of 00:00: MOUTH [place] 00 EVERY 8 Medical (EIGHT) Branch HOURS NEEDED (MUSCLE PAIN OR SPASM). TIZANIDINE 2020-0 Yes [id number] 4mg TAKE 1-2 [facility] 4 mg tablet 5-07 TABLETS BY it y of 00:00: MOUTH [place] 00 EVERY 8 Medical (EIGHT) Branch HOURS NEEDED (MUSCLE PAIN OR SPASM). TIZANIDINE 2020-0 Yes [id number] 4mg TAKE 1-2 [facility] 4 mg tablet 5-07 TABLETS BY it y of 00:00: MOUTH [place] 00 EVERY 8 Medical (EIGHT) Branch HOURS NEEDED (MUSCLE PAIN OR SPASM). TIZANIDINE 2020-0 Yes [id number] 4mg TAKE 1-2 [facility] 4 mg tablet 5-07 TABLETS BY it y of 00:00: MOUTH [place] 00 EVERY 8 Medical (EIGHT) Branch HOURS NEEDED (MUSCLE PAIN OR SPASM). TIZANIDINE 2020-0 Yes [id number] 4mg TAKE 1-2 [facility] 4 mg tablet 5-07 TABLETS BY it y of 00:00: MOUTH [place] 00 EVERY 8 Medical (EIGHT) Branch HOURS NEEDED (MUSCLE PAIN OR SPASM). TIZANIDINE 2020-0 Yes [id number] 4mg TAKE 1-2 [facility] 4 mg tablet 5-07 TABLETS BY it y of 00:00: MOUTH [place] 00 EVERY 8 Medical (EIGHT) Branch HOURS NEEDED (MUSCLE PAIN OR SPASM). TIZANIDINE 2020-0 Yes [id number] 4mg TAKE 1-2 [facility] 4 mg tablet 5-07 TABLETS BY it y of 00:00: MOUTH [place] 00 EVERY 8 Medical (EIGHT) Branch HOURS NEEDED (MUSCLE PAIN OR SPASM). TIZANIDINE 2020-0 Yes [id number] 4mg TAKE 1-2 [facility] 4 mg tablet 5-07 TABLETS BY it y of 00:00: MOUTH [place] 00 EVERY 8 Medical (EIGHT) Branch HOURS NEEDED (MUSCLE PAIN OR SPASM). TIZANIDINE 2020-0 Yes [id number] 4mg TAKE 1-2 [facility] 4 mg tablet 5-07 TABLETS BY it y of 00:00: MOUTH [place] 00 EVERY 8 Medical (EIGHT) Branch HOURS NEEDED (MUSCLE PAIN OR SPASM). TIZANIDINE 2020-0 Yes [id number] 4mg TAKE 1-2 [facility] 4 mg tablet 5-07 TABLETS BY it y of 00:00: MOUTH [place] 00 EVERY 8 Medical (EIGHT) Branch HOURS NEEDED (MUSCLE PAIN OR SPASM). TIZANIDINE 2020-0 Yes [id number] 4mg TAKE 1-2 [facility] 4 mg tablet 5-07 TABLETS BY it y of 00:00: MOUTH [place] 00 EVERY 8 Medical (EIGHT) Branch HOURS NEEDED (MUSCLE PAIN OR SPASM). TIZANIDINE 2020-0 Yes [id number] 4mg TAKE 1-2 [facility] 4 mg tablet 5-07 TABLETS BY it y of 00:00: MOUTH [place] 00 EVERY 8 Medical (EIGHT) Branch HOURS NEEDED (MUSCLE PAIN OR SPASM). TIZANIDINE 2020-0 Yes [id number] 4mg TAKE 1-2 [facility] 4 mg tablet 5-07 TABLETS BY it y of 00:00: MOUTH [place] 00 EVERY 8 Medical (EIGHT) Branch HOURS NEEDED (MUSCLE PAIN OR SPASM). TIZANIDINE 2020-0 Yes [id number] 4mg TAKE 1-2 [facility] 4 mg tablet 5-07 TABLETS BY it y of 00:00: MOUTH [place] 00 EVERY 8 Medical (EIGHT) Branch HOURS NEEDED (MUSCLE PAIN OR SPASM). TIZANIDINE 2020-0 Yes [id number] 4mg TAKE 1-2 [facility] 4 mg tablet 5-07 TABLETS BY it y of 00:00: MOUTH [place] 00 EVERY 8 Medical (EIGHT) Branch HOURS NEEDED (MUSCLE PAIN OR SPASM). TIZANIDINE 2020-0 Yes [id number] 4mg TAKE 1-2 [facility] 4 mg tablet 5-07 TABLETS BY it y of 00:00: MOUTH [place] 00 EVERY 8 Medical (EIGHT) Branch HOURS NEEDED (MUSCLE PAIN OR SPASM). TIZANIDINE 2020-0 Yes [id number] 4mg TAKE 1-2 [facility] 4 mg tablet 5-07 TABLETS BY it y of 00:00: MOUTH [place] 00 EVERY 8 Medical (EIGHT) Branch HOURS NEEDED (MUSCLE PAIN OR SPASM). TIZANIDINE 2020-0 Yes [id number] 4mg TAKE 1-2 [facility] 4 mg tablet 5-07 TABLETS BY it y of 00:00: MOUTH [place] 00 EVERY 8 Medical (EIGHT) Branch HOURS NEEDED (MUSCLE PAIN OR SPASM). TIZANIDINE 2020-0 Yes [id number] 4mg TAKE 1-2 [facility] 4 mg tablet 5-07 TABLETS BY it y of 00:00: MOUTH [place] 00 EVERY 8 Medical (EIGHT) Branch HOURS NEEDED (MUSCLE PAIN OR SPASM). TIZANIDINE 2020-0 Yes [id number] 4mg TAKE 1-2 [facility] 4 mg tablet 5-07 TABLETS BY it y of 00:00: MOUTH [place] 00 EVERY 8 Medical (EIGHT) Branch HOURS NEEDED (MUSCLE PAIN OR SPASM). TIZANIDINE 2020-0 Yes [id number] 4mg TAKE 1-2 [facility] 4 mg tablet 5-07 TABLETS BY it y of 00:00: MOUTH [place] 00 EVERY 8 Medical (EIGHT) Branch HOURS NEEDED (MUSCLE PAIN OR SPASM). TIZANIDINE 2020-0 Yes [id number] 4mg TAKE 1-2 [facility] 4 mg tablet 5-07 TABLETS BY it y of 00:00: MOUTH [place] 00 EVERY 8 Medical (EIGHT) Branch HOURS NEEDED (MUSCLE PAIN OR SPASM). TIZANIDINE 2020-0 Yes [id number] 4mg TAKE 1-2 [facility] 4 mg tablet 5-07 TABLETS BY it y of 00:00: MOUTH [place] 00 EVERY 8 Medical (EIGHT) Branch HOURS NEEDED (MUSCLE PAIN OR SPASM). TIZANIDINE 2020-0 Yes [id number] 4mg TAKE 1-2 [facility] 4 mg tablet 5-07 TABLETS BY it y of 00:00: MOUTH [place] 00 EVERY 8 Medical (EIGHT) Branch HOURS NEEDED (MUSCLE PAIN OR SPASM). TIZANIDINE 2020-0 Yes [id number] 4mg TAKE 1-2 [facility] 4 mg tablet 5-07 TABLETS BY it y of 00:00: MOUTH [place] 00 EVERY 8 Medical (EIGHT) Branch HOURS NEEDED (MUSCLE PAIN OR SPASM). TIZANIDINE 2020-0 Yes [id number] 4mg TAKE 1-2 [facility] 4 mg tablet 5-07 TABLETS BY it y of 00:00: MOUTH [place] 00 EVERY 8 Medical (EIGHT) Branch HOURS NEEDED (MUSCLE PAIN OR SPASM). TIZANIDINE 2020-0 Yes [id number] 4mg TAKE 1-2 [facility] 4 mg tablet 5-07 TABLETS BY it y of 00:00: MOUTH [place] 00 EVERY 8 Medical (EIGHT) Branch HOURS NEEDED (MUSCLE PAIN OR SPASM). TIZANIDINE 2020-0 Yes [id number] 4mg TAKE 1-2 [facility] 4 mg tablet 5-07 TABLETS BY it y of 00:00: MOUTH [place] 00 EVERY 8 Medical (EIGHT) Branch HOURS NEEDED (MUSCLE PAIN OR SPASM). TIZANIDINE 2020-0 Yes [id number] 4mg TAKE 1-2 [facility] 4 mg tablet 5-07 TABLETS BY it y of 00:00: MOUTH [place] 00 EVERY 8 Medical (EIGHT) Branch HOURS NEEDED (MUSCLE PAIN OR SPASM). TIZANIDINE 2020-0 Yes [id number] 4mg TAKE 1-2 [facility] 4 mg tablet 5-07 TABLETS BY it y of 00:00: MOUTH [place] 00 EVERY 8 Medical (EIGHT) Branch HOURS NEEDED (MUSCLE PAIN OR SPASM). TIZANIDINE 2020-0 Yes [id number] 4mg TAKE 1-2 [facility] 4 mg tablet 5-07 TABLETS BY it y of 00:00: MOUTH [place] 00 EVERY 8 Medical (EIGHT) Branch HOURS NEEDED (MUSCLE PAIN OR SPASM). TIZANIDINE 2020-0 Yes [id number] 4mg TAKE 1-2 [facility] 4 mg tablet 5-07 TABLETS BY it y of 00:00: MOUTH [place] 00 EVERY 8 Medical (EIGHT) Branch HOURS NEEDED (MUSCLE PAIN OR SPASM). TIZANIDINE 2020-0 Yes [id number] 4mg TAKE 1-2 [facility] 4 mg tablet 5-07 TABLETS BY it y of 00:00: MOUTH [place] 00 EVERY 8 Medical (EIGHT) Branch HOURS NEEDED (MUSCLE PAIN OR SPASM). TIZANIDINE 2020-0 Yes [id number] 4mg TAKE 1-2 [facility] 4 mg tablet 5-07 TABLETS BY it y of 00:00: MOUTH [place] 00 EVERY 8 Medical (EIGHT) Branch HOURS NEEDED (MUSCLE PAIN OR SPASM). TIZANIDINE 2020-0 Yes [id number] 4mg TAKE 1-2 [facility] 4 mg tablet 5-07 TABLETS BY it y of 00:00: MOUTH [place] 00 EVERY 8 Medical (EIGHT) Branch HOURS NEEDED (MUSCLE PAIN OR SPASM). TIZANIDINE 2020-0 Yes [id number] 4mg TAKE 1-2 [facility] 4 mg tablet 5-07 TABLETS BY it y of 00:00: MOUTH [place] 00 EVERY 8 Medical (EIGHT) Branch HOURS NEEDED (MUSCLE PAIN OR SPASM). TIZANIDINE 2020-0 Yes [id number] 4mg TAKE 1-2 [facility] 4 mg tablet 5-07 TABLETS BY it y of 00:00: MOUTH [place] 00 EVERY 8 Medical (EIGHT) Branch HOURS NEEDED (MUSCLE PAIN OR SPASM). TIZANIDINE 2020-0 2020- No [id number] 4mg TAKE 1-2 [facility] 4 mg tablet 5-07 12-07 TABLETS BY i ty of 00:00: 00:00 MOUTH [place] 00 :00 EVERY 8 Medical (EIGHT) Branch HOURS NEEDED (MUSCLE PAIN OR SPASM). TIZANIDINE 2020-0 2020- No [id number] 4mg TAKE 1-2 [facility] 4 mg tablet 5-07 12-07 TABLETS BY i ty of 00:00: 00:00 MOUTH [place] 00 :00 EVERY 8 Medical (EIGHT) Branch HOURS NEEDED (MUSCLE PAIN OR SPASM). levothyroxi 2020-0 Yes [id number] 50ug Take 1 [facility] ne 50 mcg 4-20 tablet by ity o f tablet 00:00: mouth [place] 00 every Medical morning. Branch levothyroxi 2020-0 Yes [id number] 50ug Take 1 [facility] ne 50 mcg 4-20 tablet by ity o f tablet 00:00: mouth [place] 00 every Medical morning. Branch levothyroxi 2020-0 Yes [id number] 50ug Take 1 [facility] ne 50 mcg 4-20 tablet by ity o f tablet 00:00: mouth [place] 00 every Medical morning. Branch levothyroxi 2020-0 Yes [id number] 50ug Take 1 [facility] ne 50 mcg 4-20 tablet by ity o f tablet 00:00: mouth [place] 00 every Medical morning. Branch levothyroxi 2020-0 Yes [id number] 50ug Take 1 [facility] ne 50 mcg 4-20 tablet by ity o f tablet 00:00: mouth [place] 00 every Medical morning. Branch levothyroxi 2020-0 Yes [id number] 50ug Take 1 [facility] ne 50 mcg 4-20 tablet by ity o f tablet 00:00: mouth [place] 00 every Medical morning. Branch levothyroxi 2020-0 Yes [id number] 50ug Take 1 [facility] ne 50 mcg 4-20 tablet by ity o f tablet 00:00: mouth [place] 00 every Medical morning. Branch levothyroxi 2020-0 Yes [id number] 50ug Take 1 [facility] ne 50 mcg 4-20 tablet by ity o f tablet 00:00: mouth [place] 00 every Medical morning. Branch levothyroxi 2020-0 Yes [id number] 50ug Take 1 [facility] ne 50 mcg 4-20 tablet by ity o f tablet 00:00: mouth [place] 00 every Medical morning. Branch levothyroxi 2020-0 Yes [id number] 50ug Take 1 [facility] ne 50 mcg 4-20 tablet by ity o f tablet 00:00: mouth [place] 00 every Medical morning. Branch levothyroxi 2020-0 Yes [id number] 50ug Take 1 [facility] ne 50 mcg 4-20 tablet by ity o f tablet 00:00: mouth [place] 00 every Medical morning. Branch levothyroxi 2020-0 Yes [id number] 50ug Take 1 [facility] ne 50 mcg 4-20 tablet by ity o f tablet 00:00: mouth [place] 00 every Medical morning. Branch levothyroxi 2020-0 Yes [id number] 50ug Take 1 [facility] ne 50 mcg 4-20 tablet by ity o f tablet 00:00: mouth [place] 00 every Medical morning. Branch levothyroxi 2020-0 Yes [id number] 50ug Take 1 [facility] ne 50 mcg 4-20 tablet by ity o f tablet 00:00: mouth [place] 00 every Medical morning. Branch levothyroxi 2020-0 Yes [id number] 50ug Take 1 [facility] ne 50 mcg 4-20 tablet by ity o f tablet 00:00: mouth [place] 00 every Medical morning. Branch levothyroxi 2020-0 Yes [id number] 50ug Take 1 [facility] ne 50 mcg 4-20 tablet by ity o f tablet 00:00: mouth [place] 00 every Medical morning. Branch levothyroxi 2020-0 Yes [id number] 50ug Take 1 [facility] ne 50 mcg 4-20 tablet by ity o f tablet 00:00: mouth [place] 00 every Medical morning. Branch levothyroxi 2020-0 Yes [id number] 50ug Take 1 [facility] ne 50 mcg 4-20 tablet by ity o f tablet 00:00: mouth [place] 00 every Medical morning. Branch levothyroxi 2020-0 Yes [id number] 50ug Take 1 [facility] ne 50 mcg 4-20 tablet by ity o f tablet 00:00: mouth [place] 00 every Medical morning. Branch levothyroxi 2020-0 Yes [id number] 50ug Take 1 [facility] ne 50 mcg 4-20 tablet by ity o f tablet 00:00: mouth [place] 00 every Medical morning. Branch levothyroxi 2020-0 Yes [id number] 50ug Take 1 [facility] ne 50 mcg 4-20 tablet by ity o f tablet 00:00: mouth [place] 00 every Medical morning. Branch levothyroxi 2020-0 Yes [id number] 50ug Take 1 [facility] ne 50 mcg 4-20 tablet by ity o f tablet 00:00: mouth [place] 00 every Medical morning. Branch levothyroxi 2020-0 Yes [id number] 50ug Take 1 [facility] ne 50 mcg 4-20 tablet by ity o f tablet 00:00: mouth [place] 00 every Medical morning. Branch levothyroxi 2020-0 Yes [id number] 50ug Take 1 [facility] ne 50 mcg 4-20 tablet by ity o f tablet 00:00: mouth [place] 00 every Medical morning. Branch levothyroxi 2020-0 Yes [id number] 50ug Take 1 [facility] ne 50 mcg 4-20 tablet by ity o f tablet 00:00: mouth [place] 00 every Medical morning. Branch levothyroxi 2020-0 Yes [id number] 50ug Take 1 [facility] ne 50 mcg 4-20 tablet by ity o f tablet 00:00: mouth [place] 00 every Medical morning. Branch levothyroxi 2020-0 Yes [id number] 50ug Take 1 [facility] ne 50 mcg 4-20 tablet by ity o f tablet 00:00: mouth [place] 00 every Medical morning. Branch levothyroxi 2020-0 Yes [id number] 50ug Take 1 [facility] ne 50 mcg 4-20 tablet by ity o f tablet 00:00: mouth [place] 00 every Medical morning. Branch levothyroxi 2020-0 Yes [id number] 50ug Take 1 [facility] ne 50 mcg 4-20 tablet by ity o f tablet 00:00: mouth [place] 00 every Medical morning. Branch levothyroxi 2020-0 Yes [id number] 50ug Take 1 [facility] ne 50 mcg 4-20 tablet by ity o f tablet 00:00: mouth [place] 00 every Medical morning. Branch levothyroxi 2020-0 Yes [id number] 50ug Take 1 [facility] ne 50 mcg 4-20 tablet by ity o f tablet 00:00: mouth [place] 00 every Medical morning. Branch levothyroxi 2020-0 Yes [id number] 50ug Take 1 [facility] ne 50 mcg 4-20 tablet by ity o f tablet 00:00: mouth [place] 00 every Medical morning. Branch levothyroxi 2020-0 Yes [id number] 50ug Take 1 [facility] ne 50 mcg 4-20 tablet by ity o f tablet 00:00: mouth [place] 00 every Medical morning. Branch levothyroxi 2020-0 Yes [id number] 50ug Take 1 [facility] ne 50 mcg 4-20 tablet by ity o f tablet 00:00: mouth [place] 00 every Medical morning. Branch levothyroxi 2020-0 Yes [id number] 50ug Take 1 [facility] ne 50 mcg 4-20 tablet by ity o f tablet 00:00: mouth [place] 00 every Medical morning. Branch levothyroxi 2020-0 Yes [id number] 50ug Take 1 [facility] ne 50 mcg 4-20 tablet by ity o f tablet 00:00: mouth [place] 00 every Medical morning. Branch levothyroxi 2020-0 Yes [id number] 50ug Take 1 [facility] ne 50 mcg 4-20 tablet by ity o f tablet 00:00: mouth [place] 00 every Medical morning. Branch levothyroxi 2020-0 Yes [id number] 50ug Take 1 [facility] ne 50 mcg 4-20 tablet by ity o f tablet 00:00: mouth [place] 00 every Medical morning. Branch levothyroxi 2020-0 Yes [id number] 50ug Take 1 [facility] ne 50 mcg 4-20 tablet by ity o f tablet 00:00: mouth [place] 00 every Medical morning. Branch levothyroxi 2020-0 Yes [id number] 50ug Take 1 [facility] ne 50 mcg 4-20 tablet by ity o f tablet 00:00: mouth [place] 00 every Medical morning. Branch levothyroxi 2020-0 Yes [id number] 50ug Take 1 [facility] ne 50 mcg 4-20 tablet by ity o f tablet 00:00: mouth [place] 00 every Medical morning. Branch levothyroxi 2020-0 Yes [id number] 50ug Take 1 [facility] ne 50 mcg 4-20 tablet by ity o f tablet 00:00: mouth [place] 00 every Medical morning. Branch levothyroxi 2020-0 2020- No [id number] 50ug Take 1 [facility] ne 50 mcg 4-20 10-23 tablet by ity of tablet 00:00: 00:00 mouth [place] 00 :00 every Medical morning. Branch rivaroxaban 2020-0 Yes [id number] 20mg Take 1 [facility] ers (XARELTO) 4-14 tablet by ity o f 20 mg 00:00: mouth [place] tablet 00 daily. Medical STOP [facility] ELIQUIS. Indication s: a clot in the [...] mouth [place] tablet 00 daily. Medical STOP [place] ELIQUIS. Indication s: a clot in the [...] mouth [place] tablet 00 daily. Medical STOP [place] ELIQUIS. Indication s: a clot in the [...] clot in the lung TRAZODONE 2020-0 Yes [id number] 100mg TAKE 1 [facility] 100 mg 4-06 TABLET BY ity of tablet 00:00: MOUTH AT [place] [address] BEDTIME. Medical FOR Branch INSOMNIA. TRAZODONE 2020-0 Yes [id number] 100mg TAKE 1 [facility] 100 mg 4-06 TABLET BY ity of tablet 00:00: MOUTH AT [place] [address] BEDTIME. Medical FOR Branch INSOMNIA. TRAZODONE 2020-0 Yes [id number] 100mg TAKE 1 [facility] 100 mg 4-06 TABLET BY ity of tablet 00:00: MOUTH AT [place] [address] BEDTIME. Medical FOR Branch INSOMNIA. TRAZODONE 2020-0 Yes [id number] 100mg TAKE 1 [facility] 100 mg 4-06 TABLET BY ity of tablet 00:00: MOUTH AT [place] [address] BEDTIME. Medical FOR Branch INSOMNIA. TRAZODONE 2020-0 Yes [id number] 100mg TAKE 1 [facility] 100 mg 4-06 TABLET BY ity of tablet 00:00: MOUTH AT [place] [address] BEDTIME. Medical FOR Branch INSOMNIA. TRAZODONE 2020-0 Yes [id number] 100mg TAKE 1 [facility] 100 mg 4-06 TABLET BY ity of tablet 00:00: MOUTH AT [place] 00 BEDTIME. Medical FOR Branch INSOMNIA. TRAZODONE 2020-0 Yes [id number] 100mg TAKE 1 [facility] 100 mg 4-06 TABLET BY ity of tablet 00:00: MOUTH AT [place] [address] BEDTIME. Medical FOR Branch INSOMNIA. TRAZODONE 2020-0 Yes [id number] 100mg TAKE 1 [facility] 100 mg 4-06 TABLET BY ity of tablet 00:00: MOUTH AT [place] [address] BEDTIME. Medical FOR Branch INSOMNIA. TRAZODONE 2020-0 Yes [id number] 100mg TAKE 1 [facility] 100 mg 4-06 TABLET BY ity of tablet 00:00: MOUTH AT [place] 00 BEDTIME. Medical FOR Branch INSOMNIA. TRAZODONE 2020-0 Yes [id number] 100mg TAKE 1 [facility] 100 mg 4-06 TABLET BY ity of tablet 00:00: MOUTH AT [place] 00 BEDTIME. Medical FOR Branch INSOMNIA. TRAZODONE 2020-0 Yes [id number] 100mg TAKE 1 [facility] 100 mg 4-06 TABLET BY ity of tablet 00:00: MOUTH AT [place] 00 BEDTIME. Medical FOR Branch INSOMNIA. TRAZODONE 2020-0 Yes [id number] 100mg TAKE 1 [facility] 100 mg 4-06 TABLET BY ity of tablet 00:00: MOUTH AT [place] 00 BEDTIME. Medical FOR Branch INSOMNIA. TRAZODONE 2020-0 Yes [id number] 100mg TAKE 1 [facility] 100 mg 4-06 TABLET BY ity of tablet 00:00: MOUTH AT [place] 00 BEDTIME. Medical FOR Branch INSOMNIA. TRAZODONE 2020-0 Yes [id number] 100mg TAKE 1 [facility] 100 mg 4-06 TABLET BY ity of tablet 00:00: MOUTH AT [place] [address] BEDTIME. Medical FOR Branch INSOMNIA. TRAZODONE 2020-0 Yes [id number] 100mg TAKE 1 [facility] 100 mg 4-06 TABLET BY ity of tablet 00:00: MOUTH AT [place] 00 BEDTIME. Medical FOR Branch INSOMNIA. TRAZODONE 2020-0 Yes [id number] 100mg TAKE 1 [facility] 100 mg 4-06 TABLET BY ity of tablet 00:00: MOUTH AT [place] 00 BEDTIME. Medical FOR Branch INSOMNIA. TRAZODONE 2020-0 Yes [id number] 100mg TAKE 1 [facility] 100 mg 4-06 TABLET BY ity of tablet 00:00: MOUTH AT [place] 00 BEDTIME. Medical FOR Branch INSOMNIA. TRAZODONE 2020-0 2020- No [id number] 100mg TAKE 1 [facility] 100 mg 4-06 08-24 TABLET BY ity of tablet 00:00: 00:00 MOUTH AT [place] 00 :00 BEDTIME. Medical FOR Branch INSOMNIA. TRAZODONE 2020-0 2020- No [id number] 100mg TAKE 1 [facility] 100 mg 4-06 08-24 TABLET BY ity of tablet 00:00: 00:00 MOUTH AT [place] 00 :00 BEDTIME. Medical FOR Branch INSOMNIA. TRAZODONE 2020-0 2020- No [id number] 100mg TAKE 1 [facility] 100 mg 12-21-24 TABLET BY ity of tablet 00:00: 00:00 MOUTH AT [place] 00 :00 BEDTIME. Medical FOR Branch INSOMNIA. levothyroxi 2020-0 Yes 37.5ug 37.5 mcg, [facility] ne 3-25 Oral, ity of (SYNTHROID) 11:00: QAM-0600, [place] tablet 37.5 00 First dose Me dical mcg on Sun [place] 12/10/19 at 0600, Until Discontinu ed, Routine apixaban 2020-0 Yes 10mg 10 mg, [facility] (ELIQUIS) 3-25 Oral, BID, ity of tablet 10 01:00: First dose [place] mg 00 on Sun [facility] 12/09/19 at [place] 1999, Until Discontinu ed, Routine alcaftadine 2020-0 [...] 3-25 mouth. ity of ITAMIN D3 00:58: [place] (VITAMIN 08 Medical D-3 ORAL) Branch oxyCODONE-a [...] Medical Branch Magnesium 2020-0 Yes Take by [facility] 250 mg Tab 3-25 mouth. ity [...] Branch CYCLOSPORIN 2020-[address] in [place] (RESTASIS 3-25 each eye. ity of [...] 3-25 mouth. ity of ITAMIN D3 00:58: [place] (VITAMIN 08 Medical D-3 ORAL) Branch alcaftadine [...] 3-25 mouth. ity of ITAMIN D3 00:58: [place] (VITAMIN 08 Medical D-3 ORAL) Branch alcaftadine [...] [place] tablet 08 daily. Medical Branch CALCIUM 0 Yes Take by [facility] CARBONATE/V 3-25 mouth. ity of ITAMIN D3 00:58: [place] (VITAMIN 08 Medical D-3 ORAL) Branch oxyCODONE-a 2019- Yes 1{tbl} Take 1 [facility] [place] cetaminophe 3-25 tablet by ity of n 7.5-325 00:58: mouth 2 [place] mg per 08 (two) Medical tablet times Branch daily as needed for Pain. levothyroxi 2020- No [id number] 50ug Take 1 [facility] ne 50 mcg 3-25 04-25 tablet by ity of tablet 00:00: 04:59 mouth [place] 00 :00 every Medical morning Branch for 30 days. levothyroxi 2019- No [id number] 50ug Take 1 [facility] ne 50 mcg 3-25 04-25 tablet by ity of tablet 00:00: 04:59 mouth [place] 00 :00 every Medical morning Branch for 30 days. levothyroxi 2020- No [id number] 50ug Take 1 [facility] ne 50 mcg 3-25 04-25 tablet by ity of tablet 00:00: 04:59 mouth [place] 00 :00 every Medical morning Branch for 30 days. levothyroxi 2020- No [id number] 50ug Take 1 [facility] ne 50 mcg 3-25 04-25 tablet by ity of tablet 00:00: 04:59 mouth [place] 00 :00 every Medical morning Branch for 30 days. levothyroxi 2020- No [id number] 50ug Take 1 [facility] ne 50 mcg 3-25 04-25 tablet by ity of tablet 00:00: 04:59 mouth [place] 00 :00 every Medical morning Branch for 30 days. levothyroxi 2020- No [id number] 50ug Take 1 [facility] ne 50 mcg 3-25 04-25 tablet by ity of tablet 00:00: 04:59 mouth [place] 00 :00 every Medical morning Branch for 30 days. levothyroxi 2020- No [id number] 50ug Take 1 [facility] ne 50 mcg 3-25 04-25 tablet by ity of tablet 00:00: 04:59 mouth [place] 00 :00 every Medical morning [place] for 30 days. levothyroxi 2020-0 2020- No [id number] 50ug Take 1 [facility] ne 50 mcg 3-25 04-20 tablet by ity of tablet 00:00: 00:00 mouth [place] 00 :00 every Medical morning Mica for 30 days. METFORMIN 2020-0 Yes [id number] TAKE 1 [facility] ER 500 mg 3-24 TABLET BY ity o f 24 hr 00:00: MOUTH [place] tablet 00 EVERY DAY Medical WITH Branch BREAKFAST METFORMIN 2020-0 Yes [id number] TAKE 1 [facility] [place] ER 500 mg 3-24 TABLET BY ity o f 24 hr 00:00: MOUTH [place] tablet 00 EVERY DAY Medical WITH Branch BREAKFAST METFORMIN 2020-0 Yes [id number] TAKE 1 [facility] [place] ER 500 mg 3-24 TABLET BY ity o f 24 hr 00:00: MOUTH [place] tablet 00 EVERY DAY Medical WITH Branch BREAKFAST METFORMIN 2020-0 Yes [id number] TAKE 1 [facility] [place] ER 500 mg 3-24 TABLET BY ity o f 24 hr 00:00: MOUTH [place] tablet 00 EVERY DAY Medical WITH Branch BREAKFAST METFORMIN 2020-0 Yes [id number] TAKE 1 [facility] [place] [facility] 500 mg 3-24 TABLET BY ity o f 24 hr 00:00: MOUTH [place] tablet 00 EVERY DAY Medical WITH Branch BREAKFAST METFORMIN 2020-0 Yes [id number] TAKE 1 [facility] [place] [facility] 500 mg 3-24 TABLET BY ity o f 24 hr 00:00: MOUTH [place] tablet 00 EVERY DAY Medical WITH Branch BREAKFAST METFORMIN 2020-0 Yes [id number] TAKE 1 [facility] [place] [facility] 500 mg 3-24 TABLET BY ity o f 24 hr 00:00: MOUTH [place] tablet 00 EVERY DAY Medical WITH Branch BREAKFAST METFORMIN 2020-0 Yes [id number] TAKE 1 [facility] [place] [facility] 500 mg 3-24 TABLET BY ity o f 24 hr 00:00: MOUTH [place] tablet 00 EVERY DAY Medical WITH Branch BREAKFAST METFORMIN 2020-0 Yes [id number] TAKE 1 [facility] [place] [facility] 500 mg 3-24 TABLET BY ity o f 24 hr 00:00: MOUTH [place] tablet 00 EVERY DAY Medical WITH Branch BREAKFAST METFORMIN 2020-0 Yes [id number] TAKE 1 [facility] [place] [facility] 500 mg 3-24 TABLET BY ity o f 24 hr 00:00: MOUTH [place] tablet 00 EVERY DAY Medical WITH Branch BREAKFAST METFORMIN 2020-0 Yes [id number] TAKE 1 [facility] [place] [facility] 500 mg 3-24 TABLET BY ity o f 24 hr 00:00: MOUTH [place] tablet 00 EVERY DAY Medical WITH Branch BREAKFAST METFORMIN 2020-0 Yes [id number] TAKE 1 [facility] [place] [facility] 500 mg 3-24 TABLET BY ity o f 24 hr 00:00: MOUTH [place] tablet 00 EVERY DAY Medical WITH Branch BREAKFAST METFORMIN 2020-0 Yes [id number] TAKE 1 [facility] [place] [facility] 500 mg 3-24 TABLET BY ity o f 24 hr 00:00: MOUTH [place] tablet 00 EVERY DAY Medical WITH Branch BREAKFAST METFORMIN 2020-0 Yes [id number] TAKE 1 [facility] [place] [facility] 500 mg 3-24 TABLET BY ity o f 24 hr 00:00: MOUTH [place] tablet 00 EVERY DAY Medical WITH Branch BREAKFAST METFORMIN 2020-0 Yes [id number] TAKE 1 [facility] [place] [facility] 500 mg 3-24 TABLET BY ity o f 24 hr 00:00: MOUTH [place] tablet 00 EVERY DAY Medical WITH Branch BREAKFAST METFORMIN 2020-0 Yes [id number] TAKE 1 [facility] [place] [facility] 500 mg 3-24 TABLET BY ity o f 24 hr 00:00: MOUTH [place] tablet 00 EVERY DAY Medical WITH Branch BREAKFAST METFORMIN 2020-0 Yes [id number] TAKE 1 [facility] [place] [facility] 500 mg 3-24 TABLET BY ity o f 24 hr 00:00: MOUTH [place] tablet 00 EVERY DAY Medical WITH Branch BREAKFAST METFORMIN 2020-0 Yes [id number] TAKE 1 [facility] [place] [facility] 500 mg 3-24 TABLET BY ity o f 24 hr 00:00: MOUTH [place] tablet 00 EVERY DAY Medical WITH Branch BREAKFAST METFORMIN 2020-0 Yes [id number] TAKE 1 [facility] [place] [facility] 500 mg 3-24 TABLET BY ity o f 24 hr 00:00: MOUTH [place] tablet 00 EVERY DAY Medical WITH Branch BREAKFAST METFORMIN 2020-0 Yes [id number] TAKE 1 [facility] [place] [facility] 500 mg 3-24 TABLET BY ity o f 24 hr 00:00: MOUTH [place] tablet 00 EVERY DAY Medical WITH Branch BREAKFAST METFORMIN 2020-0 Yes [id number] TAKE 1 [facility] [place] [facility] 500 mg 3-24 TABLET BY ity o f 24 hr 00:00: MOUTH [place] tablet 00 EVERY DAY Medical WITH Branch BREAKFAST METFORMIN 2020-0 Yes [id number] TAKE 1 [facility] [place] [facility] 500 mg 3-24 TABLET BY ity o f 24 hr 00:00: MOUTH [place] tablet 00 EVERY DAY Medical WITH Branch BREAKFAST METFORMIN 2020-0 Yes [id number] TAKE 1 [facility] [place] [facility] 500 mg 3-24 TABLET BY ity o f 24 hr 00:00: MOUTH [place] tablet 00 EVERY DAY Medical WITH Branch BREAKFAST METFORMIN 2020-0 Yes [id number] TAKE 1 [facility] [place] [facility] 500 mg 3-24 TABLET BY ity o f 24 hr 00:00: MOUTH [place] tablet 00 EVERY DAY Medical WITH Branch BREAKFAST METFORMIN 2020-0 Yes [id number] TAKE 1 [facility] [place] [facility] 500 mg 3-24 TABLET BY ity o f 24 hr 00:00: MOUTH [place] tablet 00 EVERY DAY Medical WITH Branch BREAKFAST METFORMIN 2020-0 Yes [id number] TAKE 1 [facility] [place] [facility] 500 mg 3-24 TABLET BY ity o f 24 hr 00:00: MOUTH [place] tablet 00 EVERY DAY Medical WITH Branch BREAKFAST METFORMIN 2020-0 Yes [id number] TAKE 1 [facility] [place] [facility] 500 mg 3-24 TABLET BY ity o f 24 hr 00:00: MOUTH [place] tablet 00 EVERY DAY Medical WITH Branch BREAKFAST METFORMIN 2020-0 Yes [id number] TAKE 1 [facility] [place] [facility] 500 mg 3-24 TABLET BY ity o f 24 hr 00:00: MOUTH [place] tablet 00 EVERY DAY Medical WITH Branch BREAKFAST METFORMIN 2020-0 Yes [id number] TAKE 1 [facility] [place] [facility] 500 mg 3-24 TABLET BY ity o f 24 hr 00:00: MOUTH [place] tablet 00 EVERY DAY Medical WITH Branch BREAKFAST METFORMIN 2020-0 Yes [id number] TAKE 1 [facility] [place] [facility] 500 mg 3-24 TABLET BY ity o f 24 hr 00:00: MOUTH [place] tablet 00 EVERY DAY Medical WITH Branch BREAKFAST METFORMIN 2020-0 Yes [id number] TAKE 1 [facility] [place] [facility] 500 mg 3-24 TABLET BY ity o f 24 hr 00:00: MOUTH [place] tablet 00 EVERY DAY Medical WITH Branch BREAKFAST METFORMIN 2020-0 Yes [id number] TAKE 1 [facility] [place] [facility] 500 mg 3-24 TABLET BY ity o f 24 hr 00:00: MOUTH [place] tablet 00 EVERY DAY Medical WITH Branch BREAKFAST METFORMIN 2020-0 Yes [id number] TAKE 1 [facility] [place] [facility] 500 mg 3-24 TABLET BY ity o f 24 hr 00:00: MOUTH [place] tablet 00 EVERY DAY Medical WITH Branch BREAKFAST METFORMIN 2020-0 Yes [id number] TAKE 1 [facility] [place] [facility] 500 mg 3-24 TABLET BY ity o f 24 hr 00:00: MOUTH [place] tablet 00 EVERY DAY Medical WITH Branch BREAKFAST METFORMIN 2020-0 Yes [id number] TAKE 1 [facility] [place] [facility] 500 mg 3-24 TABLET BY ity o f 24 hr 00:00: MOUTH [place] tablet 00 EVERY DAY Medical WITH Branch BREAKFAST METFORMIN 2020-0 Yes [id number] TAKE 1 [facility] [place] [facility] 500 mg 3-24 TABLET BY ity o f 24 hr 00:00: MOUTH [place] tablet 00 EVERY DAY Medical WITH Branch BREAKFAST METFORMIN 2020-0 Yes [id number] TAKE 1 [facility] [place] [facility] 500 mg 3-24 TABLET BY ity o f 24 hr 00:00: MOUTH [place] tablet 00 EVERY DAY Medical WITH Branch BREAKFAST METFORMIN 2020-0 Yes [id number] TAKE 1 [facility] [place] [facility] 500 mg 3-24 TABLET BY ity o f 24 hr 00:00: MOUTH [place] tablet 00 EVERY DAY Medical WITH Branch BREAKFAST METFORMIN 2020-0 Yes [id number] TAKE 1 [facility] [place] [facility] 500 mg 3-24 TABLET BY ity o f 24 hr 00:00: MOUTH [place] tablet 00 EVERY DAY Medical WITH Branch BREAKFAST METFORMIN 2020-0 2020- No [id number] TAKE 1 U n[facility] ER 500 mg 3-24 10-05 TABLET BY ity of 24 hr 00:00: 00:00 MOUTH [place] tablet 00 :00 EVERY DAY Medical WITH Branch BREAKFAST METFORMIN 2020-0 2020- No [id number] TAKE 1 [facility] ER 500 mg [...] blood clot in the lung levoFLOXaci 2019- 2020- No [id number] 500mg Take 1 [facility] n 500 mg 3-08 12-30 tablet by ity o f tablet 00:00: 04:59 mouth [place] 00 :00 every 24 Medical ([facility]) hours for 5 days. levoFLOXaci 2019-0 2020- No [id number] 500mg Take 1 [facility] n 500 mg 3-08 12-30 tablet by ity o f tablet 00:00: 04:59 mouth [place] 00 :00 every 24 Medical ([facility]) hours for 5 days. levoFLOXaci 2020-0 2020- No [id number] 500mg Take 1 Univers n 500 mg 3-08 12-30 tablet by ity o f tablet 00:00: 04:59 mouth [place] 00 :00 every 24 Medical ([facility]) hours for 5 days. levoFLOXaci 2020-0 2020- No [id number] 500mg Take 1 Univers n 500 mg 12-08 03-30 tablet by ity o f tablet 00:00: 04:59 mouth [place] 00 :00 every 24 Medical ([facility] Branch ur) hours for 5 days. oxyCODONE-a 2020-0 Yes 1{tbl} Take 1 [facility] [place] cetaminophe 3-23 tablet by ity of n 7.5-325 03:06: mouth 2 [place] mg per 26 (two) Medical tablet times [place] daily as needed for Pain. oxyCODONE-a 2020-0 Yes 1{tbl} 1 tablet, Univers cetaminophe 3-23 Oral, ity of n 03:06: Q6HPRN, [place] (PERCOCET) 13 Starting Medic al 5-325 mg [facility] per tablet 12/07/19 at 1 tablet 2206, Until Discontinu ed, Pain (scale 7-10) traZODone 2019-0 Yes 100mg 100 mg, Univ ers (DESYREL) 3-23 Oral, QHS, ity of tablet 100 02:00: [place] dose [place] mg 00 on [facility] 12/07/19 at Branch 2100, Until Discontinu ed, Routine levoFLOXaci 2019-0 Yes 750mg 750 mg, IV Univers n in D5W 12-06 Piggyback, ity o f (LEVAQUIN) 18:45: Q24H ABX[place] 750 mg/150 00 First dose Med ical mL on [facility] Piggyback 12/07/19 at 750 mg 1345, Until [...] NS mL/hr), IV Infusion, CONTINUOUS , Starting [place] 12/07/19 at 1000, Until 12/09/19 at 1704, Routine triamterene 2020-0 Yes 1{tbl} 1 tablet, Univers -hydrochlor 12-06 Oral, ity of othiazid 14:00: DAILY, [place] (MAXZIDE-25 00 First dose Me dical ) 37.5-25 on [place] [facility] mg tablet 1 12/07/19 at tablet 0900, Until Discontinu ed, Routine amLODIPine 2020-0 Yes 2.5mg 2.5 mg, Uni vers (NORVASC) 12-06 Oral, ity of tablet 2.5 14:00: DAILY, [place] mg 00 First dose Medical on [place] [facility] 12/07/19 at 0900, Until Discontinu ed, Routine Sliding 2020-0 Yes Subcutaneo Univ ers Scale 12-06 us, TID ity of Insulin - 13:00: MEALS+HS, [place] as Aspart 00 First dose Medical (NOVOLOG) + on [facility] Fsbg 12/07/19 at Testing 0800, Until Discontinu ed, Routine omeprazole 2020-0 Yes 40mg 40 mg, Unive rs (PRILOSEC) 12-06 Oral, QAM ity of capsule 40 13:00: WITH [place] mg 00 BREAKFAST, Medical First dose Branch on [place] 12/07/19 at 0800, Until Discontinu ed
Facu lty member approving Non-formul familia medication : KELLY MITTAL
R lan for Non-Formul familia Use: PATIENT CURRENTLY TAKING NONFORMULA RY PRODUCT levothyroxi 2020-0 2020- No 25ug 25 mcg, [facility] [place] ne 12-06 03-24 Oral, ity of (SYNTHROID) 11:00: 19:39 QAM-0600, [place] tablet 25 00 :21 First dose Medi kacey mcg on [place] [facility] 12/07/19 at 0600, Until Discontinu ed, Routine glucagon 2019-0 Yes 1mg 1 mg, Univers (GLUCAGEN 12-06 Intramuscu ity of DIAGNOSTIC 10:24: lar, PRN, [place] KIT) 32 Starting Medical injection 1 [place] [facility] mg 12/07/19 at 0524, Until Discontinu ed, BASIL, Blood Glucose < or = 70 mg/dL and patient is unable to swallow or has mental changes. dextrose 50 2020-0 Yes 25mL 25 mL, Univ ers % in water 12-06 Slow IV ity of (D50W) 10:24: Push, PRN, [place] injection 32 Starting Medica l 25 mL [facility] 12/07/19 at 0524, Until Discontinu ed, BASIL, Blood Glucose < or = 70 mg/dL and patient is unable to swallow or has mental status changes. CYCLOSPORIN 2020-[address] in [facility] [place] E (RESTASIS 12-06 each eye. ity of OPHTHALMIC) 10:23: [place] Medical Branch ASCORBATE 2020-0 Yes Take by Unive rs CALCIUM 12-06 mouth. ity of (VITAMIN C 10:23: [place] ORAL) Medical Branch DOCOSAHEXAN 2020-0 Yes Take by Uni vers OIC 12-06 mouth. ity of ACID/EPA 10:23: [place] (FISH OIL Medical ORAL) Branch vitamin E 2019- Yes 1000U Take 1,000 U nivers 1,000 unit 12-06 Units by ity o f capsule 10:23: mouth [place] 27 daily. Medical Branch Magnesium 2019-0 Yes Take by Unive rs 250 mg Tab 12-06 mouth. ity of 10:23: [place] [facility] vitamin B-6 2019-0 Yes 100mg Take 100 U nivers (VITAMIN 3- mg by ity of B-6) 100 mg 10:23: mouth [place] tablet 27 daily. Medical Branch CALCIUM 0 Yes Take by Univers CARBONATE/V 12-06 mouth. ity of ITAMIN D3 10:23: [place] (VITAMIN 27 Medical D-3 ORAL) [facility] albuterol-i 0 Yes 1{puff} 1 Puff, Univers pratropium 12-06 Inhalation ity of (COMBIVENT 10:20: , Q6HPRN, [place] RESPIMAT) 41 Starting Medica l 20-100 [facility] mcg/actuati 12/07/19 at on inhaler 0520, 1 Puff Until Discontinu ed, Routine, Wheezing, Shortness of Breath hydralAZINE 2020-0 Yes 10mg 10 mg, Univ ers (APRESOLINE 12-06 Intravenou it y of ) injection 05:40: s, Q6HPRN, [place] 10 mg 38 Starting Medical [facility] 12/07/19 at 0040, Until Discontinu ed, Routine, Hypertensi on acetaminoph 2020-0 Yes 650mg 650 mg, [place] en 12-06 Oral, ity of (TYLENOL) 05:40: Q6HPRN, [place] tablet 650 19 Starting Medic al mg [facility] 12/07/19 at 0040, Until Discontinu ed, Routine, Pain (scale 1-3), Temp > 38.5 C ondansetron 2020-0 Yes 4mg 4 mg, Slow Univers (ZOFRAN 322 IV Push, ity of (PF)) 05:22: Q6HPRN, [place] injection 4 26 Starting Medi kacey mg [facility] 12/07/19 at 0022, Until Discontinu ed, Routine, Nausea and Vomiting (N/V) traMADol 2019-0 2020- No 50mg 50 mg, Univer s (ULTRAM) 12-0624 Oral, ity of tablet 50 05:22: 05:21 Q8HPRN, [place] mg 21 :21 Starting Medical [facility] 12/07/19 at 0022, Until 12/09/19 at 0021, Routine, Pain (scale 4-6) alcaftadine 2020-[address] in [facility] [place] (LASTACAFT) 3- each eye. ity of 0.25 % Drop 03:51: [place] 00 [facility] heparin 2020-0 2020- No 1300U/h 1,300 Unive rs 25,000 12-06 Units/hr ity of unit/250 mL 03:45: 10:06 (13 [place] (Premixed 00 :17 mL/hr), IV Medi kacey Bag) in Infusion, Branch NaCl 0.45 % CONTINUOUS weight , Starting based Sat dosing 12/06/19 at DVT/PE 2245, protocol Until [place] 12/07/19 at 0506 heparin 2020-0 2020- No 5000U 5,000 Univers 1000 12-06 Units, IV ity of unit/mL 03:45: 03:45 Push, [place] injection 00 :00 ONCE, 1 Medical Soln [...] Medica l mg(2.5 mg 11/14/19 at Bran base)/3 mL 2014, BASIL nebulizer solution 3 mL azithromyci 2020-0 Yes Univer s n 250 mg 2-29 ity of tablet 00:00: [place] Medical Branch predniSONE 2020-0 Yes 60mg Take 60 mg U nivers 20 mg 2-29 by mouth ity of tablet 00:00: every [place] morning. Medical Branch cefpodoxime 2020-0 Yes 200mg Take 200 U nivers 200 mg 2-29 mg by ity of tablet 00:00: mouth 2 [place] (two) Medical times [place] daily. azithromyci 2020-0 Yes Univer s n 250 mg 2-29 ity of tablet 00:00: [place] Medical Branch predniSONE 2020-0 Yes 60mg Take 60 mg U nivers 20 mg 2-29 by mouth ity of tablet 00:00: every [place] morning. Medical Branch cefpodoxime 2020-0 Yes 200mg Take 200 U nivers 200 mg 2-29 mg by ity of tablet 00:00: mouth 2 (two) Medical times [place] daily. azithromyci 2020-0 Yes Univer s n 250 mg 2-29 ity of tablet 00:00: [place] Medical Branch predniSONE 2020-0 Yes 60mg Take 60 mg U nivers 20 mg 2-29 by mouth ity of tablet 00:00: every [place] 00 morning. Medical Branch cefpodoxime 2020-0 Yes 200mg Take 200 U nivers 200 mg 2-29 mg by ity of tablet 00:00: mouth 2 [place] (two) Medical times Branch daily. azithromyci 2020-0 Yes Univer s n 250 mg 2-29 ity of tablet 00:00: [place] 00 Medical Branch predniSONE 2020-0 Yes 60mg Take 60 mg U nivers 20 mg 2-29 by mouth ity of tablet 00:00: every [place] 00 morning. Medical Branch cefpodoxime 2020-0 Yes 200mg Take 200 U nivers 200 mg 2-29 mg by ity of tablet 00:00: mouth 2 [place] (two) Medical times Branch daily. azithromyci 2020-0 Yes Univer s n 250 mg 2-29 ity of tablet 00:00: [place] 00 Medical Branch predniSONE 2020-0 Yes 60mg Take 60 mg U nivers 20 mg 2-29 by mouth ity of tablet 00:00: every [place] 00 morning. Medical Branch cefpodoxime 2020-0 Yes 200mg Take 200 U nivers 200 mg 2-29 mg by ity of tablet 00:00: mouth 2 [place] (two) Medical times Branch daily. azithromyci 2020-0 Yes Univer s n 250 mg 2-29 ity of tablet 00:00: [place] 00 Medical Branch predniSONE 2020-0 Yes 60mg Take 60 mg U nivers 20 mg 2-29 by mouth ity of tablet 00:00: every [place] 00 morning. Medical Branch cefpodoxime 2020-0 Yes 200mg Take 200 U nivers 200 mg 2-29 mg by ity of tablet 00:00: mouth 2 [place] (two) Medical times Branch daily. azithromyci 2020-0 Yes Univer s n 250 mg 2-29 ity of tablet 00:00: [place] 00 Medical Branch predniSONE 2020-0 Yes 60mg Take 60 mg U nivers 20 mg 2-29 by mouth ity of tablet 00:00: every [place] 00 morning. Medical Branch cefpodoxime 2020-0 Yes 200mg Take 200 U nivers 200 mg 2-29 mg by ity of tablet 00:00: mouth 2 [place] (two) Medical times Branch daily. azithromyci 2020-0 Yes Univer s n 250 mg 2-29 ity of tablet 00:00: [place] 00 Medical Branch predniSONE 2020-0 Yes 60mg Take 60 mg U nivers 20 mg 2-29 by mouth ity of tablet 00:00: every [place] 00 morning. Medical Branch cefpodoxime 2020-0 Yes 200mg Take 200 U nivers 200 mg 2-29 mg by ity of tablet 00:00: mouth 2 [place] (two) Medical times Branch daily. azithromyci 2020-0 Yes Univer s n 250 mg 2-29 ity of tablet 00:00: [place] 00 Medical Branch predniSONE 2020-0 Yes 60mg Take 60 mg U nivers 20 mg 2-29 by mouth ity of tablet 00:00: every [place] 00 morning. Medical Branch cefpodoxime 2020-0 Yes 200mg Take 200 U nivers 200 mg 2-29 mg by ity of tablet 00:00: mouth 2 [place] (two) Medical times Branch daily. azithromyci 2020-0 Yes Univer s n 250 mg 2-29 ity of tablet 00:00: [place] 00 Medical Branch predniSONE 2020-0 Yes 60mg Take 60 mg U nivers 20 mg 2-29 by mouth ity of tablet 00:00: every [place] 00 morning. Medical Branch cefpodoxime 2020-0 Yes 200mg Take 200 U nivers 200 mg 2-29 mg by ity of tablet 00:00: mouth 2 [place] (two) Medical times Branch daily. azithromyci 2020-0 Yes Univer s n 250 mg 2-29 ity of tablet 00:00: [place] 00 Medical Branch predniSONE 2020-0 Yes 60mg Take 60 mg U nivers 20 mg 2-29 by mouth ity of tablet 00:00: every [place] 00 morning. Medical Branch cefpodoxime 2020-0 Yes 200mg Take 200 U nivers 200 mg 2-29 mg by ity of tablet 00:00: mouth 2 [place] (two) Medical times Branch daily. azithromyci 2020-0 Yes Univer s n 250 mg 2-29 ity of tablet 00:00: [place] 00 Medical Branch predniSONE 2020-0 Yes 60mg Take 60 mg U nivers 20 mg 2-29 by mouth ity of tablet 00:00: every [place] 00 morning. Medical Branch cefpodoxime 2020-0 Yes 200mg Take 200 U nivers 200 mg 2-29 mg by ity of tablet 00:00: mouth 2 [place] (two) Medical times Branch daily. azithromyci 2020-0 Yes Univer s n 250 mg 2-29 ity of tablet 00:00: [place] 00 Medical Branch predniSONE 2020-0 Yes 60mg Take 60 mg U nivers 20 mg 2-29 by mouth ity of tablet 00:00: every [place] 00 morning. Medical Branch cefpodoxime 2020-0 Yes 200mg Take 200 U nivers 200 mg 2-29 mg by ity of tablet 00:00: mouth 2 [place] (two) Medical times Branch daily. azithromyci 2020-0 Yes Univer s n 250 mg 2-29 ity of tablet 00:00: [place] 00 Medical Branch predniSONE 2020-0 Yes 60mg Take 60 mg U nivers 20 mg 2-29 by mouth ity of tablet 00:00: every [place] 00 morning. Medical Branch cefpodoxime 2020-0 Yes 200mg Take 200 U nivers 200 mg 2-29 mg by ity of tablet 00:00: mouth 2 [place] (two) Medical times Branch daily. azithromyci 2020-0 Yes Univer s n 250 mg 2-29 ity of tablet 00:00: [place] 00 Medical Branch predniSONE 2020-0 Yes 60mg Take 60 mg U nivers 20 mg 2-29 by mouth ity of tablet 00:00: every [place] 00 morning. Medical Branch cefpodoxime 2020-0 Yes 200mg Take 200 U nivers 200 mg 2-29 mg by ity of tablet 00:00: mouth 2 [place] (two) Medical times Branch daily. azithromyci 2020-0 Yes Univer s n 250 mg 2-29 ity of tablet 00:00: [place] 00 Medical Branch predniSONE 2020-0 Yes 60mg Take 60 mg U nivers 20 mg 2-29 by mouth ity of tablet 00:00: every [place] 00 morning. Medical Branch cefpodoxime 2020-0 Yes 200mg Take 200 U nivers 200 mg 2-29 mg by ity of tablet 00:00: mouth 2 [place] (two) Medical times Branch daily. azithromyci 2020-0 Yes Univer s n 250 mg 2-29 ity of tablet 00:00: [place] 00 Medical Branch predniSONE 2020-0 Yes 60mg Take 60 mg U nivers 20 mg 2-29 by mouth ity of tablet 00:00: every [place] 00 morning. Medical Branch cefpodoxime 2020-0 Yes 200mg Take 200 U nivers 200 mg 2-29 mg by ity of tablet 00:00: mouth 2 [place] (two) Medical times Branch daily. azithromyci 2020-0 Yes Univer s n 250 mg 2-29 ity of tablet 00:00: [place] 00 Medical Branch predniSONE 2020-0 Yes 60mg Take 60 mg U nivers 20 mg 2-29 by mouth ity of tablet 00:00: every [place] 00 morning. Medical Branch cefpodoxime 2020-0 Yes 200mg Take 200 U nivers 200 mg 2-29 mg by ity of tablet 00:00: mouth 2 [place] (two) Medical times Branch daily. azithromyci 2020-0 Yes Univer s n 250 mg 2-29 ity of tablet 00:00: [place] 00 Medical Branch predniSONE 2020-0 Yes 60mg Take 60 mg U nivers 20 mg 2-29 by mouth ity of tablet 00:00: every [place] 00 morning. Medical Branch cefpodoxime 2020-0 Yes 200mg Take 200 U nivers 200 mg 2-29 mg by ity of tablet 00:00: mouth 2 [place] (two) Medical times Branch daily. azithromyci 2020-0 Yes Univer s n 250 mg 2-29 ity of tablet 00:00: [place] 00 Medical Branch predniSONE 2020-0 Yes 60mg Take 60 mg U nivers 20 mg 2-29 by mouth ity of tablet 00:00: every [place] 00 morning. Medical Branch azithromyci 2020-0 Yes Univer s n 250 mg 2-29 ity of tablet 00:00: [place] 00 Medical Branch predniSONE 2020-0 Yes 60mg Take 60 mg U nivers 20 mg 2-29 by mouth ity of tablet 00:00: every [place] 00 morning. Medical Branch azithromyci 2020-0 Yes Univer s n 250 mg 2-29 ity of tablet 00:00: [place] 00 Medical Branch predniSONE 2020-0 Yes 60mg Take 60 mg U nivers 20 mg 2-29 by mouth ity of tablet 00:00: every [place] 00 morning. Medical Branch azithromyci 2020-0 Yes Univer s n 250 mg 2-29 ity of tablet 00:00: [place] 00 Medical Branch predniSONE 2020-0 Yes 60mg Take 60 mg U nivers 20 mg - by mouth ity of tablet 00:00: every [...] ity of tablet 00:00: 00:00 mouth 2 [place] 00 :00 (two) Medical times Branch daily. cefpodoxime 2019-0 2020- No 200mg Take 200 Univers 200 mg 2-29 08-24 mg by ity of tablet 00:00: 00:00 mouth 2 [place] 00 :00 (two) Medical times Branch daily. cefpodoxime 2019-0 2020- No 200mg Take 200 Univers 200 mg -29 08-24 mg by ity of tablet 00:00: 00:00 mouth 2 [place] 00 :00 (two) Medical times Branch daily. albuterol 2020-0 Yes [id number] 2.5mg Inhale 3 Univers 2.5 mg /3 2-28 mL every 4 ity of mL (0.083 00:00: (four) [place] %) 00 hours as Medical nebulizer needed for Bran ch solution Wheezing or Shortness of Breath. albuterol 2020-0 Yes [id number] 2.5mg Inhale 3 Univers 2.5 mg /3 2-28 mL every 4 ity of mL (0.083 00:00: (four) [place] %) 00 hours as Medical nebulizer needed for Bran ch solution Wheezing or Shortness of Breath. albuterol 2020-0 Yes [id number] 2.5mg Inhale 3 Univers 2.5 mg /3 2-28 mL every 4 ity of mL (0.083 00:00: (four) [place] %) 00 hours as Medical nebulizer needed for Bran ch solution Wheezing or Shortness of Breath. albuterol 2020-0 Yes [id number] 2.5mg Inhale 3 Univers 2.5 mg /3 2-28 mL every 4 ity of mL (0.083 00:00: (four) [place] %) 00 hours as Medical nebulizer needed for Bran ch solution Wheezing or Shortness of Breath. albuterol 2020-0 Yes [id number] 2.5mg Inhale 3 Univers 2.5 mg /3 2-28 mL every 4 ity of mL (0.083 00:00: (four) [place] %) 00 hours as Medical nebulizer needed for Bran ch solution Wheezing or Shortness of Breath. albuterol 2020-0 Yes [id number] 2.5mg Inhale 3 Univers 2.5 mg /3 2-28 mL every 4 ity of mL (0.083 00:00: (four) [place] %) 00 hours as Medical nebulizer needed for Bran ch solution Wheezing or Shortness of Breath. albuterol 2020-0 Yes [id number] 2.5mg Inhale 3 Univers 2.5 mg /3 2-28 mL every 4 ity of mL (0.083 00:00: (four) [place] %) 00 hours as Medical nebulizer needed for Bran ch solution Wheezing or Shortness of Breath. albuterol 2020-0 Yes [id number] 2.5mg Inhale 3 Univers 2.5 mg /3 2-28 mL every 4 ity of mL (0.083 00:00: (four) [place] %) 00 hours as Medical nebulizer needed for Bran ch solution Wheezing or Shortness of Breath. albuterol 2020-0 Yes [id number] 2.5mg Inhale 3 Univers 2.5 mg /3 2-28 mL every 4 ity of mL (0.083 00:00: (four) [place] %) 00 hours as Medical nebulizer needed for Bran ch solution Wheezing or Shortness of Breath. albuterol 2020-0 Yes [id number] 2.5mg Inhale 3 Univers 2.5 mg /3 2-28 mL every 4 ity of mL (0.083 00:00: (four) [place] %) 00 hours as Medical nebulizer needed for Bran ch solution Wheezing or Shortness of Breath. albuterol 2020-0 Yes [id number] 2.5mg Inhale 3 Univers 2.5 mg /3 2-28 mL every 4 ity of mL (0.083 00:00: (four) [place] %) 00 hours as Medical nebulizer needed for Bran ch solution Wheezing or Shortness of Breath. albuterol 2020-0 Yes [id number] 2.5mg Inhale 3 Univers 2.5 mg /3 2-28 mL every 4 ity of mL (0.083 00:00: ([facility]) [place] %) 00 hours as Medical nebulizer needed for Bran ch solution Wheezing or Shortness of Breath. albuterol 2020-0 Yes [id number] 2.5mg Inhale 3 Univers 2.5 mg /3 2-28 mL every 4 ity of mL (0.083 00:00: ([facility]) [place] %) 00 hours as Medical nebulizer needed for Bran ch solution Wheezing or Shortness of Breath. albuterol 2020-0 Yes [id number] 2.5mg Inhale 3 Univers 2.5 mg /3 2-28 mL every 4 ity of mL (0.083 00:00: ([facility]) [place] %) 00 hours as Medical nebulizer needed for Bran ch solution Wheezing or Shortness of Breath. albuterol 2020-0 Yes [id number] 2.5mg Inhale 3 [facility] 2.5 mg /3 2-28 mL every 4 ity of mL (0.083 00:00: ([facility]) [place] %) 00 hours as Medical nebulizer needed for Bran ch solution Wheezing or Shortness of Breath. albuterol 2020-0 Yes [id number] 2.5mg Inhale 3 [facility] 2.5 mg /3 2-28 mL every 4 ity of mL (0.083 00:00: (four) [place] %) 00 hours as Medical nebulizer needed for Bran ch solution Wheezing or Shortness of Breath. albuterol 2020-0 Yes [id number] 2.5mg Inhale 3 [facility] 2.5 mg /3 2-28 mL every 4 ity of mL (0.083 00:00: (four) [place] %) 00 hours as Medical nebulizer needed for Bran ch solution Wheezing or Shortness of Breath. albuterol 2020-0 Yes [id number] 2.5mg Inhale 3 [facility] 2.5 mg /3 2-28 mL every 4 ity of mL (0.083 00:00: (four) [place] %) 00 hours as Medical nebulizer needed for Bran ch solution Wheezing or Shortness of Breath. albuterol 2020-0 Yes [id number] 2.5mg Inhale 3 [facility] 2.5 mg /3 2-28 mL every 4 ity of mL (0.083 00:00: (four) [place] %) 00 hours as Medical nebulizer needed for Bran ch solution Wheezing or Shortness of Breath. albuterol 2020-0 Yes [id number] 2.5mg Inhale 3 [facility] 2.5 mg /3 2-28 mL every 4 ity of mL (0.083 00:00: (four) [place] %) 00 hours as Medical nebulizer needed for Bran ch solution Wheezing or Shortness of Breath. albuterol 2020-0 Yes [id number] 2.5mg Inhale 3 [facility] 2.5 mg /3 2-28 mL every 4 ity of mL (0.083 00:00: (four) [place] %) 00 hours as Medical nebulizer needed for Bran ch solution Wheezing or Shortness of Breath. albuterol 2020-0 Yes [id number] 2.5mg Inhale 3 [facility] 2.5 mg /3 2-28 mL every 4 ity of mL (0.083 00:00: ([facility]) [place] %) 00 hours as Medical nebulizer needed for Bran ch solution Wheezing or Shortness of Breath. albuterol 2020-0 Yes [id number] 2.5mg Inhale 3 [facility] 2.5 mg /3 2-28 mL every 4 ity of mL (0.083 00:00: (four) [place] %) 00 hours as Medical nebulizer needed for Bran ch solution Wheezing or Shortness of Breath. albuterol 2020-0 Yes [id number] 2.5mg Inhale 3 [facility] 2.5 mg /3 2-28 mL every 4 ity of mL (0.083 00:00: (four) [place] %) 00 hours as Medical nebulizer needed for Bran ch solution Wheezing or Shortness of Breath. albuterol 2020-0 Yes [id number] 2.5mg Inhale 3 [facility] 2.5 mg /3 2-28 mL every 4 ity of mL (0.083 00:00: (four) [place] %) 00 hours as Medical nebulizer needed for Bran ch solution Wheezing or Shortness of Breath. albuterol 2020-0 Yes [id number] 2.5mg Inhale 3 [facility] 2.5 mg /3 2-28 mL every 4 ity of mL (0.083 00:00: (four) [place] %) 00 hours as Medical nebulizer needed for Bran ch solution Wheezing or Shortness of Breath. albuterol 2020-0 Yes [id number] 2.5mg Inhale 3 [facility] 2.5 mg /3 2-28 mL every 4 ity of mL (0.083 00:00: (four) [place] %) 00 hours as Medical nebulizer needed for Bran ch solution Wheezing or Shortness of Breath. albuterol 2020-0 Yes [id number] 2.5mg Inhale 3 [facility] 2.5 mg /3 2-28 mL every 4 ity of mL (0.083 00:00: (four) [place] %) 00 hours as Medical nebulizer needed for Bran ch solution Wheezing or Shortness of Breath. albuterol 2020-0 Yes [id number] 2.5mg Inhale 3 [facility] 2.5 mg /3 2-28 mL every 4 ity of mL (0.083 00:00: (four) [place] %) 00 hours as Medical nebulizer needed for Bran ch solution Wheezing or Shortness of Breath. albuterol 2020-0 Yes [id number] 2.5mg Inhale 3 [facility] 2.5 mg /3 2-28 mL every 4 ity of mL (0.083 00:00: (four) [place] %) 00 hours as Medical nebulizer needed for Bran ch solution Wheezing or Shortness of Breath. albuterol 2020-0 Yes [id number] 2.5mg Inhale 3 [facility] 2.5 mg /3 2-28 mL every 4 ity of mL (0.083 00:00: (four) [place] %) 00 hours as Medical nebulizer needed for Bran ch solution Wheezing or Shortness of Breath. albuterol 2020-0 Yes [id number] 2.5mg Inhale 3 [facility] 2.5 mg /3 2-28 mL every 4 ity of mL (0.083 00:00: (four) [place] %) 00 hours as Medical nebulizer needed for Bran ch solution Wheezing or Shortness of Breath. albuterol 2020-0 Yes [id number] 2.5mg Inhale 3 [facility] 2.5 mg /3 2-28 mL every 4 ity of mL (0.083 00:00: (four) [place] %) 00 hours as Medical nebulizer needed for Bran ch solution Wheezing or Shortness of Breath. albuterol 2020-0 Yes [id number] 2.5mg Inhale 3 [facility] 2.5 mg /3 2-28 mL every 4 ity of mL (0.083 00:00: (four) [place] %) 00 hours as Medical nebulizer needed for Bran ch solution Wheezing or Shortness of Breath. albuterol 2020-0 Yes [id number] 2.5mg Inhale 3 [facility] 2.5 mg /3 2-28 mL every 4 ity of mL (0.083 00:00: (four) [place] %) 00 hours as Medical nebulizer needed for Bran ch solution Wheezing or Shortness of Breath. albuterol 2020-0 Yes [id number] 2.5mg Inhale 3 [facility] 2.5 mg /3 2-28 mL every 4 ity of mL (0.083 00:00: (four) [place] %) 00 hours as Medical nebulizer needed for Bran ch solution Wheezing or Shortness of Breath. albuterol 2020-0 Yes [id number] 2.5mg Inhale 3 [facility] 2.5 mg /3 2-28 mL every 4 ity of mL (0.083 00:00: ([facility]) [place] %) 00 hours as Medical nebulizer needed for Bran ch solution Wheezing or Shortness of Breath. albuterol 2020-0 Yes [id number] 2.5mg Inhale 3 [facility] 2.5 mg /3 2-28 mL every 4 ity of mL (0.083 00:00: (four) [place] %) 00 hours as Medical nebulizer needed for Bran ch solution Wheezing or Shortness of Breath. albuterol 2020-0 Yes [id number] 2.5mg Inhale 3 [facility] 2.5 mg /3 2-28 mL every 4 ity of mL (0.083 00:00: (four) [place] %) 00 hours as Medical nebulizer needed for Bran ch solution Wheezing or Shortness of Breath. albuterol 2020-0 Yes [id number] 2.5mg Inhale 3 [facility] 2.5 mg /3 2-28 mL every 4 ity of mL (0.083 00:00: (four) [place] %) 00 hours as Medical nebulizer needed for Bran ch solution Wheezing or Shortness of Breath. albuterol 2020-0 Yes [id number] 2.5mg Inhale 3 [facility] 2.5 mg /3 2-28 mL every 4 ity of mL (0.083 00:00: (four) [place] %) 00 hours as Medical nebulizer needed for Bran ch solution Wheezing or Shortness of Breath. albuterol 2020-0 Yes [id number] 2.5mg Inhale 3 [facility] 2.5 mg /3 2-28 mL every 4 ity of mL (0.083 00:00: (four) [place] %) 00 hours as Medical nebulizer needed for Bran ch solution Wheezing or Shortness of Breath. albuterol 2020-0 Yes [id number] 2.5mg Inhale 3 [facility] 2.5 mg /3 2-28 mL every 4 ity of mL (0.083 00:00: (four) [place] %) 00 hours as Medical nebulizer needed for Bran ch solution Wheezing or Shortness of Breath. albuterol 2020-0 Yes [id number] 2.5mg Inhale 3 [facility] 2.5 mg /3 2-28 mL every 4 ity of mL (0.083 00:00: (four) [place] %) 00 hours as Medical nebulizer needed for Bran ch solution Wheezing or Shortness of Breath. albuterol 2020-0 Yes [id number] 2.5mg Inhale 3 [facility] 2.5 mg /3 2-28 mL every 4 ity of mL (0.083 00:00: (four) [place] %) 00 hours as Medical nebulizer needed for Bran ch solution Wheezing or Shortness of Breath. albuterol 2020-0 Yes [id number] 2.5mg Inhale 3 [facility] 2.5 mg /3 2-28 mL every 4 ity of mL (0.083 00:00: (four) [place] %) 00 hours as Medical nebulizer needed for Bran ch solution Wheezing or Shortness of Breath. albuterol 2020-0 Yes [id number] 2.5mg Inhale 3 [facility] 2.5 mg /3 2-28 mL every 4 ity of mL (0.083 00:00: (four) [place] %) 00 hours as Medical nebulizer needed for Bran ch solution Wheezing or Shortness of Breath. albuterol 2020-0 Yes [id number] 2.5mg Inhale 3 [facility] 2.5 mg /3 2-28 mL every 4 ity of mL (0.083 00:00: (four) [place] %) 00 hours as Medical nebulizer needed for Bran ch solution Wheezing or Shortness of Breath. albuterol 2020-0 Yes [id number] 2.5mg Inhale 3 [facility] 2.5 mg /3 2-28 mL every 4 ity of mL (0.083 00:00: ([facility]) [place] %) 00 hours as Medical nebulizer needed for Bran ch solution Wheezing or Shortness of Breath. albuterol 2020-0 Yes [id number] 2.5mg Inhale 3 [facility] 2.5 mg /3 2-28 mL every 4 ity of mL (0.083 00:00: ([facility]) [place] %) 00 hours as Medical nebulizer needed for Bran ch solution Wheezing or Shortness of Breath. albuterol 2020-0 Yes [id number] 2.5mg Inhale 3 [facility] 2.5 mg /3 2-28 mL every 4 ity of mL (0.083 00:00: ([facility]) [place] %) 00 hours as Medical nebulizer needed for Bran ch solution Wheezing or Shortness of Breath. albuterol 2020-0 Yes [id number] 2.5mg Inhale 3 [facility] 2.5 mg /3 2-28 mL every 4 ity of mL (0.083 00:00: ([facility]) [place] %) 00 hours as Medical nebulizer needed for Bran ch solution Wheezing or Shortness of Breath. albuterol 2020-0 Yes [id number] 2.5mg Inhale 3 [facility] 2.5 mg /3 2-28 mL every 4 ity of mL (0.083 00:00: ([facility]) [place] %) 00 hours as Medical nebulizer needed for Bran ch solution Wheezing or Shortness of Breath. albuterol 2020-0 Yes [id number] 2.5mg Inhale 3 [facility] 2.5 mg /3 2-28 mL every 4 ity of mL (0.083 00:00: ([facility]) [place] %) 00 hours as Medical nebulizer needed for Bran ch solution Wheezing or Shortness of Breath. albuterol 2020-0 Yes [id number] 2.5mg Inhale 3 [facility] 2.5 mg /3 2-28 mL every 4 ity of mL (0.083 00:00: ([facility]) [place] %) 00 hours as Medical nebulizer needed for Bran ch solution Wheezing or Shortness of Breath. albuterol 2020-0 Yes [id number] 2.5mg Inhale 3 [facility] 2.5 mg /3 2-28 mL every 4 ity of mL (0.083 00:00: ([facility]) [place] %) 00 hours as Medical nebulizer needed for Bran ch solution Wheezing or Shortness of Breath. albuterol 2020-0 Yes [id number] 2.5mg Inhale 3 [facility] 2.5 mg /3 2-28 mL every 4 ity of mL (0.083 00:00: (four) [place] %) 00 hours as Medical nebulizer needed for Bran ch solution Wheezing or Shortness of Breath. albuterol 2020-0 Yes [id number] 2.5mg Inhale 3 [facility] 2.5 mg /3 2-28 mL every 4 ity of mL (0.083 00:00: (four) [place] %) 00 hours as Medical nebulizer needed for Bran ch solution Wheezing or Shortness of Breath. albuterol 2020-0 Yes [id number] 2.5mg Inhale 3 [facility] 2.5 mg /3 2-28 mL every 4 ity of mL (0.083 00:00: (four) [place] %) 00 hours as Medical nebulizer needed for Bran ch solution Wheezing or Shortness of Breath. albuterol 2020-0 Yes [id number] 2.5mg Inhale 3 [facility] 2.5 mg /3 2-28 mL every 4 ity of mL (0.083 00:00: (four) [place] %) 00 hours as Medical nebulizer needed for Bran ch solution Wheezing or Shortness of Breath. albuterol 2020-0 Yes [id number] 2.5mg Inhale 3 [facility] 2.5 mg /3 2-28 mL every 4 ity of mL (0.083 00:00: (four) [place] %) 00 hours as Medical nebulizer needed for Bran ch solution Wheezing or Shortness of Breath. albuterol 2020-0 Yes [id number] 2.5mg Inhale 3 [facility] 2.5 mg /3 2-28 mL every 4 ity of mL (0.083 00:00: (four) [place] %) 00 hours as Medical nebulizer needed for Bran ch solution Wheezing or Shortness of Breath. albuterol 2020-0 Yes [id number] 2.5mg Inhale 3 [facility] 2.5 mg /3 2-28 mL every 4 ity of mL (0.083 00:00: (four) [place] %) 00 hours as Medical nebulizer needed for Bran ch solution Wheezing or Shortness of Breath. albuterol 2020-0 Yes [id number] 2.5mg Inhale 3 [facility] 2.5 mg /3 2-28 mL every 4 ity of mL (0.083 00:00: ([facility]) [place] %) 00 hours as Medical nebulizer needed for Bran ch solution Wheezing or Shortness of Breath. albuterol 2020-0 Yes [id number] 2.5mg Inhale 3 [facility] 2.5 mg /3 2-28 mL every 4 ity of mL (0.083 00:00: (four) [place] %) 00 hours as Medical nebulizer needed for Bran ch solution Wheezing or Shortness of Breath. albuterol 2020-0 Yes [id number] 2.5mg Inhale 3 [facility] 2.5 mg /3 2-28 mL every 4 ity of mL (0.083 00:00: ([facility]) [place] %) 00 hours as Medical nebulizer needed for Bran ch solution Wheezing or Shortness of Breath. albuterol 2020-0 Yes [id number] 2.5mg Inhale 3 [facility] 2.5 mg /3 2-28 mL every 4 ity of mL (0.083 00:00: ([facility]) [place] %) 00 hours as Medical nebulizer needed for Bran ch solution Wheezing or Shortness of Breath. albuterol 2020-0 Yes [id number] 2.5mg Inhale 3 [facility] 2.5 mg /3 2-28 mL every 4 ity of mL (0.083 00:00: ([facility]) [place] %) 00 hours as Medical nebulizer needed for Bran ch solution Wheezing or Shortness of Breath. albuterol 2020-0 Yes [id number] 2.5mg Inhale 3 [facility] 2.5 mg /3 2-28 mL every 4 ity of mL (0.083 00:00: ([facility]) [place] %) 00 hours as Medical nebulizer needed for Bran ch solution Wheezing or Shortness of Breath. albuterol 2020-0 Yes [id number] 2.5mg Inhale 3 [facility] 2.5 mg /3 2-28 mL every 4 ity of mL (0.083 00:00: (four) [place] %) 00 hours as Medical nebulizer needed for Bran ch solution Wheezing or Shortness of Breath. albuterol 2020-0 Yes [id number] 2.5mg Inhale 3 [facility] 2.5 mg /3 2-28 mL every 4 ity of mL (0.083 00:00: (four) [place] %) 00 hours as Medical nebulizer needed for Bran ch solution Wheezing or Shortness of Breath. albuterol 2020-0 Yes [id number] 2.5mg Inhale 3 [facility] 2.5 mg /3 2-28 mL every 4 ity of mL (0.083 00:00: (four) [place] %) 00 hours as Medical nebulizer needed for Bran ch solution Wheezing or Shortness of Breath. albuterol 2020-0 Yes [id number] 2.5mg Inhale 3 [facility] 2.5 mg /3 2-28 mL every 4 ity of mL (0.083 00:00: ([facility]) [place] %) 00 hours as Medical nebulizer needed for Bran ch solution Wheezing or Shortness of Breath. albuterol 2020-0 Yes [id number] 2.5mg Inhale 3 [facility] 2.5 mg /3 2-28 mL every 4 ity of mL (0.083 00:00: ([facility]) [place] %) 00 hours as Medical nebulizer needed for Bran ch solution Wheezing or Shortness of Breath. albuterol 2020-0 Yes [id number] 2.5mg Inhale 3 [facility] 2.5 mg /3 2-28 mL every 4 ity of mL (0.083 00:00: ([facility]) [place] %) 00 hours as Medical nebulizer needed for Bran ch solution Wheezing or Shortness of Breath. albuterol 2020-0 Yes [id number] 2.5mg Inhale 3 [facility] 2.5 mg /3 2-28 mL every 4 ity of mL (0.083 00:00: ([facility]) [place] %) 00 hours as Medical nebulizer needed for Bran ch solution Wheezing or Shortness of Breath. albuterol 2020-0 Yes [id number] 2.5mg Inhale 3 [facility] 2.5 mg /3 2-28 mL every 4 ity of mL (0.083 00:00: (four) [place] %) 00 hours as Medical nebulizer needed for Bran ch solution Wheezing or Shortness of Breath. albuterol 2020-0 Yes [id number] 2.5mg Inhale 3 [facility] 2.5 mg /3 2-28 mL every 4 ity of mL (0.083 00:00: ([facility]) [place] %) 00 hours as Medical nebulizer needed for Bran ch solution Wheezing or Shortness of Breath. albuterol 2020-0 Yes [id number] 2.5mg Inhale 3 [facility] 2.5 mg /3 2-28 mL every 4 ity of mL (0.083 00:00: ([facility]) [place] %) 00 hours as Medical nebulizer needed for Bran ch solution Wheezing or Shortness of Breath. albuterol 2020-0 Yes [id number] 2.5mg Inhale 3 [facility] 2.5 mg /3 2-28 mL every 4 ity of mL (0.083 00:00: ([facility]) [place] %) 00 hours as Medical nebulizer needed for Bran ch solution Wheezing or Shortness of Breath. albuterol 2020-0 Yes [id number] 2.5mg Inhale 3 [facility] 2.5 mg /3 2-28 mL every 4 ity of mL (0.083 00:00: ([facility]) [place] %) 00 hours as Medical nebulizer needed for Bran ch solution Wheezing or Shortness of Breath. albuterol 2020-0 Yes [id number] 2.5mg Inhale 3 [facility] 2.5 mg /3 2-28 mL every 4 ity of mL (0.083 00:00: ([facility]) [place] %) 00 hours as Medical nebulizer needed for Bran ch solution Wheezing or Shortness of Breath. albuterol 2020-0 Yes [id number] 2.5mg Inhale 3 [facility] 2.5 mg /3 2-28 mL every 4 ity of mL (0.083 00:00: ([facility]) [place] %) 00 hours as Medical nebulizer needed for Bran ch solution Wheezing or Shortness of Breath. albuterol 2020-0 Yes [id number] 2.5mg Inhale 3 [facility] 2.5 mg /3 2-28 mL every 4 ity of mL (0.083 00:00: ([facility]) [place] %) 00 hours as Medical nebulizer needed for Bran ch solution Wheezing or Shortness of Breath. albuterol 2020-0 Yes [id number] 2.5mg Inhale 3 [facility] 2.5 mg /3 2-28 mL every 4 ity of mL (0.083 00:00: ([facility]) [place] %) 00 hours as Medical nebulizer needed for Bran ch solution Wheezing or Shortness of Breath. albuterol 2020-0 Yes [id number] 2.5mg Inhale 3 [facility] 2.5 mg /3 2-28 mL every 4 ity of mL (0.083 00:00: (four) [place] %) 00 hours as Medical nebulizer needed for Bran ch solution Wheezing or Shortness of Breath. albuterol 2020-0 Yes [id number] 2.5mg Inhale 3 [facility] 2.5 mg /3 2-28 mL every 4 ity of mL (0.083 00:00: (four) [place] %) 00 hours as Medical nebulizer needed for Bran ch solution Wheezing or Shortness of Breath. albuterol 2020-0 Yes [id number] 2.5mg Inhale 3 [facility] 2.5 mg /3 2-28 mL every 4 ity of mL (0.083 00:00: (four) [place] %) 00 hours as Medical nebulizer needed for Bran ch solution Wheezing or Shortness of Breath. albuterol 2020-0 Yes [id number] 2.5mg Inhale 3 [facility] 2.5 mg /3 2-28 mL every 4 ity of mL (0.083 00:00: (four) [place] %) 00 hours as Medical nebulizer needed for Bran ch solution Wheezing or Shortness of Breath. albuterol 2020-0 Yes [id number] 2.5mg Inhale 3 [facility] 2.5 mg /3 2-28 mL every 4 ity of mL (0.083 00:00: (four) [place] %) 00 hours as Medical nebulizer needed for Bran ch solution Wheezing or Shortness of Breath. albuterol 2020-0 Yes [id number] 2.5mg Inhale 3 [facility] 2.5 mg /3 2-28 mL every 4 ity of mL (0.083 00:00: (four) [place] %) 00 hours as Medical nebulizer needed for Bran ch solution Wheezing or Shortness of Breath. albuterol 2020-0 Yes [id number] 2.5mg Inhale 3 [facility] 2.5 mg /3 2-28 mL every 4 ity of mL (0.083 00:00: (four) [place] %) 00 hours as Medical nebulizer needed for Bran ch solution Wheezing or Shortness of Breath. albuterol 2020-0 Yes [id number] 2.5mg Inhale 3 [facility] 2.5 mg /3 2-28 mL every 4 ity of mL (0.083 00:00: (four) [place] %) 00 hours as Medical nebulizer needed for Bran ch solution Wheezing or Shortness of Breath. albuterol 2020-0 Yes [id number] 2.5mg Inhale 3 [facility] 2.5 mg /3 2-28 mL every 4 ity of mL (0.083 00:00: ([facility]) [place] %) 00 hours as Medical nebulizer needed for Bran ch solution Wheezing or Shortness of Breath. albuterol 2020-0 Yes [id number] 2.5mg Inhale 3 [facility] 2.5 mg /3 2-28 mL every 4 ity of mL (0.083 00:00: ([facility]) [place] %) 00 hours as Medical nebulizer needed for Bran ch solution Wheezing or Shortness of Breath. albuterol 2020-0 Yes [id number] 2.5mg Inhale 3 [facility] 2.5 mg /3 2-28 mL every 4 ity of mL (0.083 00:00: ([facility]) [place] %) 00 hours as Medical nebulizer needed for Bran ch solution Wheezing or Shortness of Breath. albuterol 2020-0 Yes [id number] 2.5mg Inhale 3 [facility] 2.5 mg /3 2-28 mL every 4 ity of mL (0.083 00:00: ([facility]) [place] %) 00 hours as Medical nebulizer needed for Bran ch solution Wheezing or Shortness of Breath. albuterol 2020-0 Yes [id number] 2.5mg Inhale 3 [facility] 2.5 mg /3 2-28 mL every 4 ity of mL (0.083 00:00: ([facility]) [place] %) 00 hours as Medical nebulizer needed for Bran ch solution Wheezing or Shortness of Breath. albuterol 2020-0 Yes [id number] 2.5mg Inhale 3 [facility] 2.5 mg /3 2-28 mL every 4 ity of mL (0.083 00:00: ([facility]) [place] %) 00 hours as Medical nebulizer needed for Bran ch solution Wheezing or Shortness of Breath. albuterol 2020-0 Yes [id number] 2.5mg Inhale 3 [facility] 2.5 mg /3 2-28 mL every 4 ity of mL (0.083 00:00: ([facility]) [place] %) 00 hours as Medical nebulizer needed for Bran ch solution Wheezing or Shortness of Breath. albuterol 2020-0 Yes [id number] 2.5mg Inhale 3 [facility] 2.5 mg /3 2-28 mL every 4 ity of mL (0.083 00:00: (four) [place] %) 00 hours as Medical nebulizer needed for Bran ch solution Wheezing or Shortness of Breath. albuterol 2020-0 Yes [id number] 2.5mg Inhale 3 [facility] 2.5 mg /3 2-28 mL every 4 ity of mL (0.083 00:00: (four) [place] %) 00 hours as Medical nebulizer needed for Bran ch solution Wheezing or Shortness of Breath. albuterol 2020-0 Yes [id number] 2.5mg Inhale 3 [facility] 2.5 mg /3 2-28 mL every 4 ity of mL (0.083 00:00: (four) [place] %) 00 hours as Medical nebulizer needed for Bran ch solution Wheezing or Shortness of Breath. albuterol 2020-0 Yes [id number] 2.5mg Inhale 3 [facility] 2.5 mg /3 2-28 mL every 4 ity of mL (0.083 00:00: (four) [place] %) 00 hours as Medical nebulizer needed for Bran ch solution Wheezing or Shortness of Breath. albuterol 2020-0 Yes [id number] 2.5mg Inhale 3 [facility] 2.5 mg /3 2-28 mL every 4 ity of mL (0.083 00:00: (four) [place] %) 00 hours as Medical nebulizer needed for Bran ch solution Wheezing or Shortness of Breath. albuterol 2020-0 Yes [id number] 2.5mg Inhale 3 [facility] 2.5 mg /3 2-28 mL every 4 ity of mL (0.083 00:00: (four) [place] %) 00 hours as Medical nebulizer needed for Bran ch solution Wheezing or Shortness of Breath. albuterol 2020-0 Yes [id number] 2.5mg Inhale 3 [facility] 2.5 mg /3 2-28 mL every 4 ity of mL (0.083 00:00: (four) [place] %) 00 hours as Medical nebulizer needed for Bran ch solution Wheezing or Shortness of Breath. albuterol 2020-0 Yes [id number] 2.5mg Inhale 3 [facility] 2.5 mg /3 2-28 mL every 4 ity of mL (0.083 00:00: (four) [place] %) 00 hours as Medical nebulizer needed for Bran ch solution Wheezing or Shortness of Breath. albuterol 2020-0 Yes [id number] 2.5mg Inhale 3 [facility] 2.5 mg /3 2-28 mL every 4 ity of mL (0.083 00:00: ([facility]) [place] %) 00 hours as Medical nebulizer needed for Bran ch solution Wheezing or Shortness of Breath. albuterol 2020-0 Yes [id number] 2.5mg Inhale 3 [facility] 2.5 mg /3 2-28 mL every 4 ity of mL (0.083 00:00: ([facility]) [place] %) 00 hours as Medical nebulizer needed for Bran ch solution Wheezing or Shortness of Breath. albuterol 2020-0 Yes [id number] 2.5mg Inhale 3 [facility] 2.5 mg /3 2-28 mL every 4 ity of mL (0.083 00:00: ([facility]) [place] %) 00 hours as Medical nebulizer needed for Bran ch solution Wheezing or Shortness of Breath. albuterol 2020-0 Yes [id number] 2.5mg Inhale 3 [facility] 2.5 mg /3 2-28 mL every 4 ity of mL (0.083 00:00: ([facility]) [place] %) 00 hours as Medical nebulizer needed for Bran ch solution Wheezing or Shortness of Breath. albuterol 2020-0 Yes [id number] 2.5mg Inhale 3 [facility] 2.5 mg /3 2-28 mL every 4 ity of mL (0.083 00:00: (four) [place] %) 00 hours as Medical nebulizer needed for Bran ch solution Wheezing or Shortness of Breath. albuterol 2020-0 Yes [id number] 2.5mg Inhale 3 [facility] 2.5 mg /3 2-28 mL every 4 ity of mL (0.083 00:00: (four) [place] %) 00 hours as Medical nebulizer needed for Bran ch solution Wheezing or Shortness of Breath. albuterol 2020-0 Yes [id number] 2.5mg Inhale 3 [facility] 2.5 mg /3 2-28 mL every 4 ity of mL (0.083 00:00: (four) [place] %) 00 hours as Medical nebulizer needed for Bran ch solution Wheezing or Shortness of Breath. albuterol 2020-0 Yes [id number] 2.5mg Inhale 3 [facility] 2.5 mg /3 2-28 mL every 4 ity of mL (0.083 00:00: (four) [place] %) 00 hours as Medical nebulizer needed for Bran ch solution Wheezing or Shortness of Breath. albuterol 2020-0 Yes [id number] 2.5mg Inhale 3 [facility] 2.5 mg /3 2-28 mL every 4 ity of mL (0.083 00:00: (four) [place] %) 00 hours as Medical nebulizer needed for Bran ch solution Wheezing or Shortness of Breath. azithromyci 2020-0 Yes [id number] 250mg Take 1 Univers n 2-28 tablet by ity of (ZITHROMAX 00:00: mouth [place] Z-MANDO) 250 00 SEE-INSTRU Med ical mg tablet CTIONS. Branch Take 500 mg day 1, then 250 mg days 2 to 5. cefpodoxime 2020-0 Yes [id number] 200mg Take 1 [facility] 200 mg 2-28 tablet by ity of tablet 00:00: mouth 2 00 (two) Medical times Branch daily. predniSONE 2020-0 Yes [id number] 60mg Take 3 [facility] nivers 20 mg 2-28 tablets by ity of tablet 00:00: mouth [place] 00 every Medical morning. Branch albuterol 2020-0 Yes [id number] 2.5mg Inhale 3 [facility] 2.5 mg /3 2-28 mL every 4 ity of mL (0.083 00:00: (four) [place] %) 00 hours as Medical nebulizer needed for Bran ch solution Wheezing or Shortness of Breath. azithromyci 2020-0 Yes [id number] 250mg Take 1 [facility] n 2-28 tablet by ity of (ZITHROMAX 00:00: mouth [place] Z-MANDO) 250 00 SEE-INSTRU Med ical mg tablet CTIONS. Branch Take 500 mg day 1, then 250 mg days 2 to 5. cefpodoxime 2020-0 Yes [id number] 200mg Take 1 [facility] 200 mg 2-28 tablet by ity of tablet 00:00: mouth 2 (two) Medical times Branch daily. predniSONE 2020-0 Yes [id number] 60mg Take 3 U nivers 20 mg 2-28 tablets by ity of tablet 00:00: mouth [place] 00 every Medical morning. Branch albuterol 2020-0 Yes [id number] 2.5mg Inhale 3 [facility] 2.5 mg /3 2-28 mL every 4 ity of mL (0.083 00:00: (four) [place] %) 00 hours as Medical nebulizer needed for Bran ch solution Wheezing or Shortness of Breath. azithromyci 2020-0 Yes [id number] 250mg Take 1 [facility] n 2-28 tablet by ity of (ZITHROMAX 00:00: mouth [place] Z-MANDO) 250 00 SEE-INSTRU Med ical mg tablet CTIONS. Branch Take 500 mg day 1, then 250 mg days 2 to 5. cefpodoxime 2020-0 Yes [id number] 200mg Take 1 [facility] 200 mg 2-28 tablet by ity of tablet 00:00: mouth 2 [place] 00 (two) Medical times Branch daily. predniSONE 2020-0 Yes [id number] 60mg Take 3 [facility] 20 mg 2-28 tablets by ity of tablet 00:00: mouth [place] 00 every Medical morning. Branch albuterol 2020-0 Yes [id number] 2.5mg Inhale 3 [facility] 2.5 mg /3 2-28 mL every 4 ity of mL (0.083 00:00: (four) [place] %) 00 hours as Medical nebulizer needed for Bran ch solution Wheezing or Shortness of Breath. azithromyci 2020-0 Yes [id number] 250mg Take 1 [facility] n 2-28 tablet by ity of (ZITHROMAX 00:00: mouth [place] Z-MANDO) 250 00 SEE-INSTRU Med ical mg tablet CTIONS. Branch Take 500 mg day 1, then 250 mg days 2 to 5. cefpodoxime 2020-0 Yes [id number] 200mg Take 1 [facility] 200 mg 2-28 tablet by ity of tablet 00:00: mouth 2 [place] 00 (two) Medical times Branch daily. predniSONE 2020-0 Yes [id number] 60mg Take 3 [facility] n[facility] 20 mg 2-28 tablets by ity of tablet 00:00: mouth [place] 00 every Medical morning. Branch albuterol 2020-0 Yes [id number] 2.5mg Inhale 3 [facility] 2.5 mg /3 2-28 mL every 4 ity of mL (0.083 00:00: (four) [place] %) 00 hours as Medical nebulizer needed for Bran ch solution Wheezing or Shortness of Breath. albuterol 2020-0 Yes [id number] 2.5mg Inhale 3 [facility] 2.5 mg /3 2-28 mL every 4 ity of mL (0.083 00:00: (four) [place] %) 00 hours as Medical nebulizer needed for Bran ch solution Wheezing or Shortness of Breath. azithromyci 2020-0 2020- No [id number] 250mg Take 1 [facility] n -12 12-24 tablet by ity of (ZITHROMAX 00:00: 00:00 mouth [place] Z-MANDO) 250 00 :00 SEE-INSTRU Med ical mg tablet CTIONS. Branch Take 500 mg day 1, then 250 mg days 2 to 5. cefpodoxime 2019- 2020- No [id number] 200mg Take 1 [facility] 200 mg 11-14- tablet by ity of tablet 00:00: 00:00 mouth 2 [place] 00 :00 (two) Medical times Branch daily. predniSONE 2019-0 2020- No [id number] 60mg Take 3 [facility] 20 mg 11-14- tablets by ity of tablet 00:00: 00:00 mouth [place] 00 :00 every Medical morning. Branch aerosol 2019-0 Yes See Admin [facility] di holding 2-[address] [facility] l aerosol 2019-0 Yes See Admin Metho di holding 2-[address] [facility] spacer 00 l albuterol 2019-0 Yes [id number] 2{puff} Inhale 2 [facility] 90 2-22 Puffs ity of mcg/actuati 00:00: every 4 [facility] as on inhaler 00 (four) Medical hours as Branch needed for Wheezing or Shortness of Breath. acetaminoph 2019-0 Yes [id number] 2 - 1 [facility] en-codeine 2-22 tab Every ity of 300-30 mg 00:00: 4hrs as [place] tablet 00 needed for Medical pain or Branch cough requiring narcotic inhalationa 2019-0 Yes [id number] Use as [facility] l spacing 2-22 directed ity of device 00:00: [place] ([facility] 00 Medical R [facility]) albuterol 2019-0 Yes [id number] 2{puff} Inhale 2 [facility] 90 2-22 Puffs ity of mcg/actuati 00:00: every 4 [facility] as on inhaler 00 (four) Medical hours as Branch needed for Wheezing or Shortness of Breath. acetaminoph 2019-0 Yes [id number] 1/2 - 1 [facility] en-codeine 2-22 tab Every ity of 300-30 mg 00:00: 4hrs as [place] tablet 00 needed for Medical pain or Branch cough requiring narcotic inhalationa 2020-0 Yes [id number] Use as [facility] l spacing 2-22 directed ity of device 00:00: [place] ([facility]) albuterol 2020-0 Yes [id number] 2{puff} Inhale 2 [facility] 90 2-22 Puffs ity of mcg/actuati 00:00: every 4 [facility] as on inhaler 00 (four) Medical hours as Branch needed for Wheezing or Shortness of Breath. acetaminoph 2020-0 Yes [id number] 2 - 1 [facility] en-codeine 2-22 tab Every ity of 300-30 mg 00:00: 4hrs as [place] tablet 00 needed for Medical pain or Branch cough requiring narcotic inhalationa 2020-0 Yes [id number] Use as [facility] l spacing 2-22 directed ity of device 00:00: [place] ([address]) albuterol 2020-0 Yes [id number] 2{puff} Inhale 2 [facility] 90 2-22 Puffs ity of mcg/actuati 00:00: every 4 [place] as on inhaler 00 (four) Medical hours as Branch needed for Wheezing or Shortness of Breath. acetaminoph 2020-0 Yes [id number] 2 - 1 [facility] en-codeine 2-22 tab Every ity of 300-30 mg 00:00: 4hrs as [place] tablet 00 needed for Medical pain or Branch cough requiring narcotic inhalationa 2020-0 Yes [id number] Use as [facility] l spacing 2-22 directed ity of device 00:00: [place] ([address]) albuterol 2020-0 Yes [id number] 2{puff} Inhale 2 [facility] 90 2-22 Puffs ity of mcg/actuati 00:00: every 4 [place] as on inhaler 00 (four) Medical hours as Branch needed for Wheezing or Shortness of Breath. acetaminoph 2020-0 Yes [id number] 2 - 1 [facility] en-codeine 2-22 tab Every ity of 300-30 mg 00:00: 4hrs as [place] tablet 00 needed for Medical pain or Branch cough requiring narcotic inhalationa 2020-0 Yes [id number] Use as [facility] l spacing 2-22 directed ity of device 00:00: [place] ([facility] 00 [facility]) albuterol 2020-0 Yes [id number] 2{puff} Inhale 2 [facility] 90 2-22 Puffs ity of mcg/actuati 00:00: every 4 [place] as on inhaler 00 (four) Medical hours as Branch needed for Wheezing or Shortness of Breath. albuterol 2020-0 Yes [id number] 2{puff} Inhale 2 [facility] 90 2-22 Puffs ity of mcg/actuati 00:00: every 4 [place] as on inhaler 00 (four) Medical hours as Branch needed for Wheezing or Shortness of Breath. acetaminoph 2020-0 Yes [id number] 2 - 1 [facility] en-codeine 2-22 tab Every ity of 300-30 mg 00:00: 4hrs as [place] tablet 00 needed for Medical pain or Branch cough requiring narcotic inhalationa 2020-0 Yes [id number] Use as [facility] l spacing 2-22 directed ity of device 00:00: [place] ([address]) inhalationa 2020-0 Yes [id number] Use as [facility] l spacing 2-22 directed ity of device 00:00: [place] ([address]) albuterol 2020-0 Yes [id number] 2{puff} Inhale 2 [facility] 90 2-22 Puffs ity of mcg/actuati 00:00: every 4 [place] as on inhaler 00 (four) Medical hours as Branch needed for Wheezing or Shortness of Breath. acetaminoph 2020-0 Yes [id number] 2 - 1 [facility] en-codeine 2-22 tab Every ity of 300-30 mg 00:00: 4hrs as [place] tablet 00 needed for Medical pain or Branch cough requiring narcotic inhalationa 2020-0 Yes [id number] Use as [facility] l spacing 2-22 directed ity of device 00:00: [place] ([address]) albuterol 2020-0 Yes [id number] 2{puff} Inhale 2 [facility] 90 2-22 Puffs ity of mcg/actuati 00:00: every 4 [place] as on inhaler 00 (four) Medical hours as Branch needed for Wheezing or Shortness of Breath. acetaminoph 2020-0 Yes [id number] 2 - 1 [facility] en-codeine 2-22 tab Every ity of 300-30 mg 00:00: 4hrs as [place] tablet 00 needed for Medical pain or Branch cough requiring narcotic inhalationa 2020-0 Yes [id number] Use as [facility] l spacing 2-22 directed ity of device 00:00: [place] ([facility]) albuterol 2020-0 Yes [id number] 2{puff} Inhale 2 [facility] 90 2-22 Puffs ity of mcg/actuati 00:00: every 4 [place] as on inhaler 00 (four) Medical hours as Branch needed for Wheezing or Shortness of Breath. acetaminoph 2020-0 Yes [id number] 2 - [facility] en-codeine 2-22 tab Every ity of 300-30 mg 00:00: 4hrs as [place] tablet 00 needed for Medical pain or Branch cough requiring narcotic inhalationa 2020-0 Yes [id number] Use as [facility] l spacing 2-22 directed ity of device 00:00: [place] ([facility]) albuterol 2020-0 Yes [id number] 2{puff} Inhale 2 [facility] 90 2-22 Puffs ity of mcg/actuati 00:00: every 4 [place] as on inhaler 00 (four) Medical hours as Branch needed for Wheezing or Shortness of Breath. acetaminoph 2020-0 Yes [id number] 2 - [facility] en-codeine 2-22 tab Every ity of 300-30 mg 00:00: 4hrs as [place] tablet 00 needed for Medical pain or Branch cough requiring narcotic inhalationa 2020-0 Yes [id number] Use as [facility] l spacing 2-22 directed ity of device 00:00: [place] ([facility]) albuterol 2020-0 Yes [id number] 2{puff} Inhale 2 [facility] 90 2-22 Puffs ity of mcg/actuati 00:00: every 4 [place] as on inhaler 00 (four) Medical hours as Branch needed for Wheezing or Shortness of Breath. acetaminoph 2020-0 Yes [id number] 2 - 1 [facility] en-codeine 2-22 tab Every ity of 300-30 mg 00:00: 4hrs as [place] tablet 00 needed for Medical pain or Branch cough requiring narcotic inhalationa 2020-0 Yes [id number] Use as [facility] l spacing 2-22 directed ity of device 00:00: [place] ([facility]) albuterol 2020-0 Yes [id number] 2{puff} Inhale 2 [facility] 90 2-22 Puffs ity of mcg/actuati 00:00: every 4 [place] as on inhaler 00 (four) Medical hours as Branch needed for Wheezing or Shortness of Breath. acetaminoph 2020-0 Yes [id number] 1/2 - 1 [facility] en-codeine 2-22 tab Every ity of 300-30 mg 00:00: 4hrs as [place] tablet 00 needed for Medical pain or Branch cough requiring narcotic inhalationa 2020-0 Yes [id number] Use as [facility] l spacing 2-22 directed ity of device 00:00: [place] ([address]) albuterol 2020-0 Yes [id number] 2{puff} Inhale 2 [facility] 90 2-22 Puffs ity of mcg/actuati 00:00: every 4 [place] as on inhaler 00 (four) Medical hours as Branch needed for Wheezing or Shortness of Breath. acetaminoph 2020-0 Yes [id number] 2 - 1 [facility] en-codeine 2-22 tab Every ity of 300-30 mg 00:00: 4hrs as [place] tablet 00 needed for Medical pain or Branch cough requiring narcotic inhalationa 2020-0 Yes [id number] Use as [facility] l spacing 2-22 directed ity of device 00:00: [place] ([address]) albuterol 2020-0 Yes [id number] 2{puff} Inhale 2 [facility] 90 2-22 Puffs ity of mcg/actuati 00:00: every 4 [place] as on inhaler 00 (four) Medical hours as Branch needed for Wheezing or Shortness of Breath. acetaminoph 2020-0 Yes [id number] 1/2 - 1 [facility] en-codeine 2-22 tab Every ity of 300-30 mg 00:00: 4hrs as [place] tablet 00 needed for Medical pain or Branch cough requiring narcotic inhalationa 2020-0 Yes [id number] Use as [facility] l spacing 2-22 directed ity of device 00:00: [place] ([address]) albuterol 2020-0 Yes [id number] 2{puff} Inhale 2 [facility] 90 2-22 Puffs ity of mcg/actuati 00:00: every 4 [place] as on inhaler 00 (four) Medical hours as Branch needed for Wheezing or Shortness of Breath. acetaminoph 2020-0 Yes [id number] 2 - 1 [facility] en-codeine 2-22 tab Every ity of 300-30 mg 00:00: 4hrs as [place] tablet 00 needed for Medical pain or Branch cough requiring narcotic inhalationa 2020-0 Yes [id number] Use as [facility] l spacing 2-22 directed ity of device 00:00: [place] ([facility]) albuterol 2020-0 Yes [id number] 2{puff} Inhale 2 [facility] 90 2-22 Puffs ity of mcg/actuati 00:00: every 4 [place] as on inhaler 00 (four) Medical hours as Branch needed for Wheezing or Shortness of Breath. acetaminoph 2020-0 Yes [id number] 2 - 1 [facility] en-codeine 2-22 tab Every ity of 300-30 mg 00:00: 4hrs as [place] tablet 00 needed for Medical pain or Branch cough requiring narcotic inhalationa 2020-0 Yes [id number] Use as [facility] l spacing 2-22 directed ity of device 00:00: [place] ([facility] 00 [facility]) albuterol 2020-0 Yes [id number] 2{puff} Inhale 2 [facility] 90 2-22 Puffs ity of mcg/actuati 00:00: every 4 [place] as on inhaler 00 (four) Medical hours as Branch needed for Wheezing or Shortness of Breath. acetaminoph 2020-0 Yes [id number] 2 - 1 [facility] en-codeine 2-22 tab Every ity of 300-30 mg 00:00: 4hrs as [place] tablet 00 needed for Medical pain or Branch cough requiring narcotic inhalationa 2020-0 Yes [id number] Use as [facility] l spacing 2-22 directed ity of device 00:00: [place] [facility] albuterol 2020-0 Yes [id number] 2{puff} Inhale 2 [facility] 90 2-22 Puffs ity of mcg/actuati 00:00: every 4 [place] as on inhaler 00 (four) Medical hours as Branch needed for Wheezing or Shortness of Breath. acetaminoph 2020-0 Yes [id number] 2 - 1 [facility] en-codeine 2-22 tab Every ity of 300-30 mg 00:00: 4hrs as [place] tablet 00 needed for Medical pain or Branch cough requiring narcotic inhalationa 2020-0 Yes [id number] Use as [facility] l spacing 2-22 directed ity of device 00:00: [place] ([facility]) albuterol 2020-0 Yes [id number] 2{puff} Inhale 2 [facility] 90 2-22 Puffs ity of mcg/actuati 00:00: every 4 [place] as on inhaler 00 (four) Medical hours as Branch needed for Wheezing or Shortness of Breath. acetaminoph 2020-0 Yes [id number] 2 - 1 [facility] en-codeine 2-22 tab Every ity of 300-30 mg 00:00: 4hrs as [place] tablet 00 needed for Medical pain or Branch cough requiring narcotic inhalationa 2020-0 Yes [id number] Use as Univers l spacing 2-22 directed ity of device 00:00: [place] ([facility]) albuterol 2020-0 Yes [id number] 2{puff} Inhale 2 [facility] 90 2-22 Puffs ity of mcg/actuati 00:00: every 4 [place] as on inhaler 00 (four) Medical hours as Branch needed for Wheezing or Shortness of Breath. acetaminoph 2020-0 Yes [id number] 2 - 1 [facility] en-codeine 2-22 tab Every ity of 300-30 mg 00:00: 4hrs as [place] tablet 00 needed for Medical pain or Branch cough requiring narcotic inhalationa 2020-0 Yes [id number] Use as [facility] l spacing 2-22 directed ity of device 00:00: [place] ([facility]) albuterol 2020-0 Yes [id number] 2{puff} Inhale 2 [facility] 90 2-22 Puffs ity of mcg/actuati 00:00: every 4 [place] as on inhaler 00 (four) Medical hours as Branch needed for Wheezing or Shortness of Breath. acetaminoph 2020-0 Yes [id number] 2 - 1 [facility] en-codeine 2-22 tab Every ity of 300-30 mg 00:00: 4hrs as [place] tablet 00 needed for Medical pain or Branch cough requiring narcotic inhalationa 2020-0 Yes [id number] Use as Univers l spacing 2-22 directed ity of device 00:00: [place] ([facility]) albuterol 2020-0 Yes [id number] 2{puff} Inhale 2 [facility] 90 2-22 Puffs ity of mcg/actuati 00:00: every 4 [place] as on inhaler 00 (four) Medical hours as Branch needed for Wheezing or Shortness of Breath. acetaminoph 2020-0 Yes [id number] 1/2 - 1 [facility] en-codeine 2-22 tab Every ity of 300-30 mg 00:00: 4hrs as [place] tablet 00 needed for Medical pain or Branch cough requiring narcotic inhalationa 2020-0 Yes [id number] Use as Univers l spacing 2-22 directed ity of device 00:00: [place] ([address]) albuterol 2020-0 Yes [id number] 2{puff} Inhale 2 [facility] 90 2-22 Puffs ity of mcg/actuati 00:00: every 4 [place] as on inhaler 00 (four) Medical hours as Branch needed for Wheezing or Shortness of Breath. acetaminoph 2020-0 Yes [id number] 2 - 1 [facility] en-codeine 2-22 tab Every ity of 300-30 mg 00:00: 4hrs as [place] tablet 00 needed for Medical pain or Branch cough requiring narcotic inhalationa 2020-0 Yes [id number] Use as [facility] l spacing 2-22 directed ity of device 00:00: [place] ([address]) albuterol 2020-0 Yes [id number] 2{puff} Inhale 2 [facility] 90 2-22 Puffs ity of mcg/actuati 00:00: every 4 [place] as on inhaler 00 (four) Medical hours as Branch needed for Wheezing or Shortness of Breath. acetaminoph 2020-0 Yes [id number] 1/2 - 1 [facility] en-codeine 2-22 tab Every ity of 300-30 mg 00:00: 4hrs as [place] tablet 00 needed for Medical pain or Branch cough requiring narcotic inhalationa 2020-0 Yes [id number] Use as [facility] l spacing 2-22 directed ity of device 00:00: [place] ([address]) albuterol 2020-0 Yes [id number] 2{puff} Inhale 2 [facility] 90 2-22 Puffs ity of mcg/actuati 00:00: every 4 [place] as on inhaler 00 (four) Medical hours as Branch needed for Wheezing or Shortness of Breath. acetaminoph 2020-0 Yes [id number] 1/2 - 1 [facility] en-codeine 2-22 tab Every ity of 300-30 mg 00:00: 4hrs as [place] tablet 00 needed for Medical pain or Branch cough requiring narcotic inhalationa 2020-0 Yes [id number] Use as [facility] l spacing 2-22 directed ity of device 00:00: [place] ([address]) albuterol 2020-0 Yes [id number] 2{puff} Inhale 2 [facility] 90 2-22 Puffs ity of mcg/actuati 00:00: every 4 [place] as on inhaler 00 (four) Medical hours as Branch needed for Wheezing or Shortness of Breath. inhalationa 2020-0 Yes [id number] Use as Univers l spacing 2-22 directed ity of device 00:00: [place] ([address]) albuterol 2020-0 Yes [id number] 2{puff} Inhale 2 [facility] 90 2-22 Puffs ity of mcg/actuati 00:00: every 4 [place] as on inhaler 00 (four) Medical hours as Branch needed for Wheezing or Shortness of Breath. inhalationa 2020-0 Yes [id number] Use as Univers l spacing 2-22 directed ity of device 00:00: [place] ([address]) albuterol 2020-0 Yes [id number] 2{puff} Inhale 2 [facility] 90 2-22 Puffs ity of mcg/actuati 00:00: every 4 [place] as on inhaler 00 (four) Medical hours as Branch needed for Wheezing or Shortness of Breath. inhalationa 2020-0 Yes [id number] Use as Univers l spacing 2-22 directed ity of device 00:00: [place] ([address]) albuterol 2020-0 Yes [id number] 2{puff} Inhale 2 [facility] 90 2-22 Puffs ity of mcg/actuati 00:00: every 4 [place] as on inhaler 00 (four) Medical hours as Branch needed for Wheezing or Shortness of Breath. inhalationa 2020-0 Yes [id number] Use as [facility] l spacing 2-22 directed ity of device 00:00: [place] ([address]) albuterol 2020-0 Yes [id number] 2{puff} Inhale 2 [facility] 90 2-22 Puffs ity of mcg/actuati 00:00: every 4 [place] as on inhaler 00 (four) Medical hours as Branch needed for Wheezing or Shortness of Breath. inhalationa 2020-0 Yes [id number] Use as Univers l spacing 2-22 directed ity of device 00:00: [place] ([address]) albuterol 2020-0 Yes [id number] 2{puff} Inhale 2 [facility] 90 2-22 Puffs ity of mcg/actuati 00:00: every 4 [place] as on inhaler 00 (four) Medical hours as Branch needed for Wheezing or Shortness of Breath. inhalationa 2020-0 Yes [id number] Use as [facility] l spacing 2-22 directed ity of device 00:00: [place] ([address]) albuterol 2020-0 Yes [id number] 2{puff} Inhale 2 [facility] 90 2-22 Puffs ity of mcg/actuati 00:00: every 4 [place] as on inhaler 00 (four) Medical hours as Branch needed for Wheezing or Shortness of Breath. inhalationa 2020-0 Yes [id number] Use as Univers l spacing 2-22 directed ity of device 00:00: [place] ([address]) albuterol 2020-0 Yes [id number] 2{puff} Inhale 2 [facility] 90 2-22 Puffs ity of mcg/actuati 00:00: every 4 [place] as on inhaler 00 (four) Medical hours as Branch needed for Wheezing or Shortness of Breath. inhalationa 2020-0 Yes [id number] Use as [facility] l spacing 2-22 directed ity of device 00:00: [place] ([address]) albuterol 2020-0 Yes [id number] 2{puff} Inhale 2 [facility] 90 2-22 Puffs ity of mcg/actuati 00:00: every 4 [place] as on inhaler 00 (four) Medical hours as Branch needed for Wheezing or Shortness of Breath. inhalationa 2020-0 Yes [id number] Use as [facility] l spacing 2-22 directed ity of device 00:00: [place] ([address]) albuterol 2020-0 Yes [id number] 2{puff} Inhale 2 [facility] 90 2-22 Puffs ity of mcg/actuati 00:00: every 4 [place] as on inhaler 00 (four) Medical hours as Branch needed for Wheezing or Shortness of Breath. inhalationa 2020-0 Yes [id number] Use as [facility] l spacing 2-22 directed ity of device 00:00: [place] ([address]) albuterol 2020-0 Yes [id number] 2{puff} Inhale 2 [facility] 90 2-22 Puffs ity of mcg/actuati 00:00: every 4 [place] as on inhaler 00 (four) Medical hours as Branch needed for Wheezing or Shortness of Breath. inhalationa 2020-0 Yes [id number] Use as [facility] l spacing 2-22 directed ity of device 00:00: [place] ([address]) albuterol 2020-0 Yes [id number] 2{puff} Inhale 2 [facility] 90 2-22 Puffs ity of mcg/actuati 00:00: every 4 [place] as on inhaler 00 (four) Medical hours as Branch needed for Wheezing or Shortness of Breath. inhalationa 2020-0 Yes [id number] Use as Univers l spacing 2-22 directed ity of device 00:00: [place] ([address]) albuterol 2020-0 Yes [id number] 2{puff} Inhale 2 [facility] 90 2-22 Puffs ity of mcg/actuati 00:00: every 4 [place] as on inhaler 00 (four) Medical hours as Branch needed for Wheezing or Shortness of Breath. inhalationa 2020-0 Yes [id number] Use as Univers l spacing 2-22 directed ity of device 00:00: [place] ([address]) albuterol 2020-0 Yes [id number] 2{puff} Inhale 2 [facility] 90 2-22 Puffs ity of mcg/actuati 00:00: every 4 [place] as on inhaler 00 (four) Medical hours as Branch needed for Wheezing or Shortness of Breath. inhalationa 2020-0 Yes [id number] Use as Univers l spacing 2-22 directed ity of device 00:00: [place] ([address]) albuterol 2020-0 Yes [id number] 2{puff} Inhale 2 [facility] 90 2-22 Puffs ity of mcg/actuati 00:00: every 4 [place] as on inhaler 00 (four) Medical hours as Branch needed for Wheezing or Shortness of Breath. inhalationa 2020-0 Yes [id number] Use as Univers l spacing 2-22 directed ity of device 00:00: [place] ([address]) albuterol 2020-0 Yes [id number] 2{puff} Inhale 2 [facility] 90 2-22 Puffs ity of mcg/actuati 00:00: every 4 [place] as on inhaler 00 (four) Medical hours as Branch needed for Wheezing or Shortness of Breath. inhalationa 2020-0 Yes [id number] Use as [facility] l spacing 2-22 directed ity of device 00:00: [place] ([address]) albuterol 2020-0 Yes [id number] 2{puff} Inhale 2 [facility] 90 2-22 Puffs ity of mcg/actuati 00:00: every 4 [place] as on inhaler 00 (four) Medical hours as Branch needed for Wheezing or Shortness of Breath. inhalationa 2020-0 Yes [id number] Use as [facility] l spacing 2-22 directed ity of device 00:00: [place] ([address]) albuterol 2020-0 Yes [id number] 2{puff} Inhale 2 [facility] 90 2-22 Puffs ity of mcg/actuati 00:00: every 4 [place] as on inhaler 00 (four) Medical hours as Branch needed for Wheezing or Shortness of Breath. inhalationa 2020-0 Yes [id number] Use as [facility] l spacing 2-22 directed ity of device 00:00: [place] ([address]) albuterol 2020-0 Yes [id number] 2{puff} Inhale 2 [facility] 90 2-22 Puffs ity of mcg/actuati 00:00: every 4 [place] as on inhaler 00 (four) Medical hours as Branch needed for Wheezing or Shortness of Breath. inhalationa 2020-0 Yes [id number] Use as [facility] l spacing 2-22 directed ity of device 00:00: [place] ([address]) albuterol 2020-0 Yes [id number] 2{puff} Inhale 2 [facility] 90 2-22 Puffs ity of mcg/actuati 00:00: every 4 [place] as on inhaler 00 (four) Medical hours as Branch needed for Wheezing or Shortness of Breath. inhalationa 2020-0 Yes [id number] Use as [facility] l spacing 2-22 directed ity of device 00:00: [place] ([address]) albuterol 2020-0 Yes [id number] 2{puff} Inhale 2 [facility] 90 2-22 Puffs ity of mcg/actuati 00:00: every 4 [place] as on inhaler 00 (four) Medical hours as Branch needed for Wheezing or Shortness of Breath. inhalationa 2020-0 Yes [id number] Use as [facility] l spacing 2-22 directed ity of device 00:00: [place] ([address]) albuterol 2020-0 Yes [id number] 2{puff} Inhale 2 [facility] 90 2-22 Puffs ity of mcg/actuati 00:00: every 4 [place] as on inhaler 00 (four) Medical hours as Branch needed for Wheezing or Shortness of Breath. inhalationa 2020-0 Yes [id number] Use as [facility] l spacing 2-22 directed ity of device 00:00: [place] ([address]) albuterol 2020-0 Yes [id number] 2{puff} Inhale 2 [facility] 90 2-22 Puffs ity of mcg/actuati 00:00: every 4 [place] as on inhaler 00 (four) Medical hours as Branch needed for Wheezing or Shortness of Breath. inhalationa 2020-0 Yes [id number] Use as [facility] l spacing 2-22 directed ity of device 00:00: [place] ([address]) albuterol 2020-0 Yes [id number] 2{puff} Inhale 2 [facility] 90 2-22 Puffs ity of mcg/actuati 00:00: every 4 [place] as on inhaler 00 (four) Medical hours as Branch needed for Wheezing or Shortness of Breath. inhalationa 2020-0 Yes [id number] Use as [facility] l spacing 2-22 directed ity of device 00:00: [place] ([address]) albuterol 2020-0 Yes [id number] 2{puff} Inhale 2 [facility] 90 2-22 Puffs ity of mcg/actuati 00:00: every 4 [place] as on inhaler 00 (four) Medical hours as Branch needed for Wheezing or Shortness of Breath. inhalationa 2020-0 Yes [id number] Use as [facility] l spacing 2-22 directed ity of device 00:00: [place] ([facility] [address]) albuterol 2020-0 Yes [id number] 2{puff} Inhale 2 [facility] 90 2-22 Puffs ity of mcg/actuati 00:00: every 4 [facility] as on inhaler 00 (four) Medical hours as Branch needed for Wheezing or Shortness of Breath. inhalationa 2020-0 Yes [id number] Use as [facility] l spacing 2-22 directed ity of device 00:00: [place] ([address]) albuterol 2020-0 Yes [id number] 2{puff} Inhale 2 [facility] 90 2-22 Puffs ity of mcg/actuati 00:00: every 4 [facility] as on inhaler 00 (four) Medical hours as Branch needed for Wheezing or Shortness of Breath. inhalationa 2020-0 Yes [id number] Use as [facility] spacing 2-22 directed ity of device 00:00: [place] ([address]) albuterol 2020-0 Yes [id number] 2{puff} Inhale 2 [facility] 90 2-22 Puffs ity of mcg/actuati 00:00: every 4 [facility] as on inhaler 00 (four) Medical hours as Branch needed for Wheezing or Shortness of Breath. inhalationa 2020-0 Yes [id number] Use as [facility] l spacing 2-22 directed ity of device 00:00: [place] ([address]) albuterol 2020-0 Yes [id number] 2{puff} Inhale 2 [facility] 90 2-22 Puffs ity of mcg/actuati 00:00: every 4 [facility] as on inhaler 00 (four) Medical hours as Branch needed for Wheezing or Shortness of Breath. inhalationa 2020-0 Yes [id number] Use as [facility] spacing 2-22 directed ity of device 00:00: [place] ([address]) albuterol 2020-0 Yes [id number] 2{puff} Inhale 2 [facility] 90 2-22 Puffs ity of mcg/actuati 00:00: every 4 [facility] as on inhaler 00 (four) Medical hours as Branch needed for Wheezing or Shortness of Breath. inhalationa 2020-0 Yes [id number] Use as [facility] spacing 2-22 directed ity of device 00:00: [place] ([address]) albuterol 2020-0 Yes [id number] 2{puff} Inhale 2 [facility] 90 2-22 Puffs ity of mcg/actuati 00:00: every 4 [facility] as on inhaler 00 (four) Medical hours as Branch needed for Wheezing or Shortness of Breath. inhalationa 2020-0 Yes [id number] Use as [facility] l spacing 2-22 directed ity of device 00:00: [place] ([address]) albuterol 2020-0 Yes [id number] 2{puff} Inhale 2 [facility] 90 2-22 Puffs ity of mcg/actuati 00:00: every 4 [facility] as on inhaler 00 (four) Medical hours as Branch needed for Wheezing or Shortness of Breath. inhalationa 2020-0 Yes [id number] Use as [facility] spacing 2-22 directed ity of device 00:00: [place] ([address]) albuterol 2020-0 Yes [id number] 2{puff} Inhale 2 [facility] 90 2-22 Puffs ity of mcg/actuati 00:00: every 4 [facility] as on inhaler 00 (four) Medical hours as Branch needed for Wheezing or Shortness of Breath. inhalationa 2020-0 Yes [id number] Use as [facility] spacing 2-22 directed ity of device 00:00: [place] ([address]) albuterol 2020-0 Yes [id number] 2{puff} Inhale 2 [facility] 90 2-22 Puffs ity of mcg/actuati 00:00: every 4 [facility] as on inhaler 00 (four) Medical hours as Branch needed for Wheezing or Shortness of Breath. inhalationa 2020-0 Yes [id number] Use as [facility] l spacing 2-22 directed ity of device 00:00: [place] ([address]) albuterol 2020-0 Yes [id number] 2{puff} Inhale 2 [facility] 90 2-22 Puffs ity of mcg/actuati 00:00: every 4 [facility] as on inhaler 00 (four) Medical hours as Branch needed for Wheezing or Shortness of Breath. inhalationa 2020-0 Yes [id number] Use as [facility] l spacing 2-22 directed ity of device 00:00: [place] ([address]) albuterol 2020-0 Yes [id number] 2{puff} Inhale 2 [facility] 90 2-22 Puffs ity of mcg/actuati 00:00: every 4 [facility] as on inhaler 00 (four) Medical hours as Branch needed for Wheezing or Shortness of Breath. inhalationa 2020-0 Yes [id number] Use as [facility] l spacing 2-22 directed ity of device 00:00: [place] ([address]) albuterol 2020-0 Yes [id number] 2{puff} Inhale 2 [facility] 90 2-22 Puffs ity of mcg/actuati 00:00: every 4 [facility] as on inhaler 00 (four) Medical hours as Branch needed for Wheezing or Shortness of Breath. inhalationa 2020-0 Yes [id number] Use as [facility] l spacing 2-22 directed ity of device 00:00: [place] ([address]) albuterol 2020-0 Yes [id number] 2{puff} Inhale 2 [facility] 90 2-22 Puffs ity of mcg/actuati 00:00: every 4 [facility] as on inhaler 00 (four) Medical hours as Branch needed for Wheezing or Shortness of Breath. inhalationa 2020-0 Yes [id number] Use as [facility] l spacing 2-22 directed ity of device 00:00: [place] ([address]) albuterol 2020-0 Yes [id number] 2{puff} Inhale 2 [facility] 90 2-22 Puffs ity of mcg/actuati 00:00: every 4 [facility] as on inhaler 00 (four) Medical hours as Branch needed for Wheezing or Shortness of Breath. inhalationa 2020-0 Yes [id number] Use as [facility] l spacing 2-22 directed ity of device 00:00: [place] ([address]) albuterol 2020-0 Yes [id number] 2{puff} Inhale 2 [facility] 90 2-22 Puffs ity of mcg/actuati 00:00: every 4 [facility] as on inhaler 00 (four) Medical hours as Branch needed for Wheezing or Shortness of Breath. inhalationa 2020-0 Yes [id number] Use as [facility] l spacing 2-22 directed ity of device 00:00: [place] ([address]) albuterol 2020-0 Yes [id number] 2{puff} Inhale 2 [facility] 90 2-22 Puffs ity of mcg/actuati 00:00: every 4 [facility] as on inhaler 00 (four) Medical hours as Branch needed for Wheezing or Shortness of Breath. inhalationa 2020-0 Yes [id number] Use as [facility] l spacing 2-22 directed ity of device 00:00: [place] ([address]) albuterol 2020-0 Yes [id number] 2{puff} Inhale 2 [facility] 90 2-22 Puffs ity of mcg/actuati 00:00: every 4 [facility] as on inhaler 00 (four) Medical hours as Branch needed for Wheezing or Shortness of Breath. inhalationa 2020-0 Yes [id number] Use as [facility] l spacing 2-22 directed ity of device 00:00: [place] ([address]) albuterol 2020-0 Yes [id number] 2{puff} Inhale 2 [facility] 90 2-22 Puffs ity of mcg/actuati 00:00: every 4 [facility] as on inhaler 00 (four) Medical hours as Branch needed for Wheezing or Shortness of Breath. inhalationa 2020-0 Yes [id number] Use as [facility] l spacing 2-22 directed ity of device 00:00: [place] ([address]) albuterol 2020-0 Yes [id number] 2{puff} Inhale 2 [facility] 90 2-22 Puffs ity of mcg/actuati 00:00: every 4 [facility] as on inhaler 00 (four) Medical hours as Branch needed for Wheezing or Shortness of Breath. inhalationa 2020-0 Yes [id number] Use as [facility] l spacing 2-22 directed ity of device 00:00: [place] ([address]) albuterol 2020-0 Yes [id number] 2{puff} Inhale 2 [facility] 90 2-22 Puffs ity of mcg/actuati 00:00: every 4 [facility] as on inhaler 00 (four) Medical hours as Branch needed for Wheezing or Shortness of Breath. inhalationa 2020-0 Yes [id number] Use as [facility] l spacing 2-22 directed ity of device 00:00: [place] ([address]) albuterol 2020-0 Yes [id number] 2{puff} Inhale 2 [facility] 90 2-22 Puffs ity of mcg/actuati 00:00: every 4 [facility] as on inhaler 00 (four) Medical hours as Branch needed for Wheezing or Shortness of Breath. inhalationa 2020-0 Yes [id number] Use as [facility] l spacing 2-22 directed ity of device 00:00: [place] ([address]) albuterol 2020-0 Yes [id number] 2{puff} Inhale 2 [facility] 90 2-22 Puffs ity of mcg/actuati 00:00: every 4 [facility] as on inhaler 00 (four) Medical hours as Branch needed for Wheezing or Shortness of Breath. inhalationa 2020-0 Yes [id number] Use as [facility] l spacing 2-22 directed ity of device 00:00: [place] ([address]) albuterol 2020-0 Yes [id number] 2{puff} Inhale 2 [facility] 90 2-22 Puffs ity of mcg/actuati 00:00: every 4 [facility] as on inhaler 00 (four) Medical hours as Branch needed for Wheezing or Shortness of Breath. inhalationa 2020-0 Yes [id number] Use as [facility] l spacing 2-22 directed ity of device 00:00: [place] ([address]) albuterol 2020-0 Yes [id number] 2{puff} Inhale 2 [facility] 90 2-22 Puffs ity of mcg/actuati 00:00: every 4 [facility] as on inhaler 00 (four) Medical hours as Branch needed for Wheezing or Shortness of Breath. inhalationa 2020-0 Yes [id number] Use as [facility] l spacing 2-22 directed ity of device 00:00: [place] ([address]) albuterol 2020-0 Yes [id number] 2{puff} Inhale 2 [facility] 90 2-22 Puffs ity of mcg/actuati 00:00: every 4 [facility] as on inhaler 00 (four) Medical hours as Branch needed for Wheezing or Shortness of Breath. inhalationa 2020-0 Yes [id number] Use as [facility] l spacing 2-22 directed ity of device 00:00: [place] ([address]) albuterol 2020-0 Yes [id number] 2{puff} Inhale 2 [facility] 90 2-22 Puffs ity of mcg/actuati 00:00: every 4 [facility] as on inhaler 00 (four) Medical hours as Branch needed for Wheezing or Shortness of Breath. inhalationa 2020-0 Yes [id number] Use as [facility] l spacing 2-22 directed ity of device 00:00: [place] ([address]) albuterol 2020-0 Yes [id number] 2{puff} Inhale 2 [facility] 90 2-22 Puffs ity of mcg/actuati 00:00: every 4 [facility] as on inhaler 00 (four) Medical hours as Branch needed for Wheezing or Shortness of Breath. inhalationa 2020-0 Yes [id number] Use as [facility] l spacing 2-22 directed ity of device 00:00: [place] ([address]) albuterol 2020-0 Yes [id number] 2{puff} Inhale 2 [facility] 90 2-22 Puffs ity of mcg/actuati 00:00: every 4 [facility] as on inhaler 00 (four) Medical hours as Branch needed for Wheezing or Shortness of Breath. inhalationa 2020-0 Yes [id number] Use as [facility] l spacing 2-22 directed ity of device 00:00: [place] ([address]) albuterol 2020-0 Yes [id number] 2{puff} Inhale 2 [facility] 90 2-22 Puffs ity of mcg/actuati 00:00: every 4 [facility] as on inhaler 00 (four) Medical hours as Branch needed for Wheezing or Shortness of Breath. inhalationa 2020-0 Yes [id number] Use as [facility] l spacing 2-22 directed ity of device 00:00: [place] ([address]) albuterol 2020-0 Yes [id number] 2{puff} Inhale 2 [facility] 90 2-22 Puffs ity of mcg/actuati 00:00: every 4 [facility] as on inhaler 00 (four) Medical hours as Branch needed for Wheezing or Shortness of Breath. inhalationa 2020-0 Yes [id number] Use as [facility] l spacing 2-22 directed ity of device 00:00: [place] ([address]) albuterol 2020-0 Yes [id number] 2{puff} Inhale 2 [facility] 90 2-22 Puffs ity of mcg/actuati 00:00: every 4 [facility] as on inhaler 00 (four) Medical hours as Branch needed for Wheezing or Shortness of Breath. inhalationa 2020-0 Yes [id number] Use as [facility] l spacing 2-22 directed ity of device 00:00: [place] ([address]) albuterol 2020-0 Yes [id number] 2{puff} Inhale 2 [facility] 90 2-22 Puffs ity of mcg/actuati 00:00: every 4 [facility] as on inhaler 00 (four) Medical hours as Branch needed for Wheezing or Shortness of Breath. inhalationa 2020-0 Yes [id number] Use as [facility] l spacing 2-22 directed ity of device 00:00: [place] ([address]) albuterol 2020-0 Yes [id number] 2{puff} Inhale 2 [facility] 90 2-22 Puffs ity of mcg/actuati 00:00: every 4 [facility] as on inhaler 00 (four) Medical hours as Branch needed for Wheezing or Shortness of Breath. inhalationa 2020-0 Yes [id number] Use as [facility] l spacing 2-22 directed ity of device 00:00: [place] ([address]) albuterol 2020-0 Yes [id number] 2{puff} Inhale 2 [facility] 90 2-22 Puffs ity of mcg/actuati 00:00: every 4 [facility] as on inhaler 00 (four) Medical hours as Branch needed for Wheezing or Shortness of Breath. inhalationa 2020-0 Yes [id number] Use as [facility] l spacing 2-22 directed ity of device 00:00: [place] ([address]) albuterol 2020-0 Yes [id number] 2{puff} Inhale 2 [facility] 90 2-22 Puffs ity of mcg/actuati 00:00: every 4 [facility] as on inhaler 00 (four) Medical hours as Branch needed for Wheezing or Shortness of Breath. inhalationa 2020-0 Yes [id number] Use as [facility] l spacing 2-22 directed ity of device 00:00: [place] ([address]) albuterol 2020-0 Yes [id number] 2{puff} Inhale 2 [facility] 90 2-22 Puffs ity of mcg/actuati 00:00: every 4 [facility] as on inhaler 00 (four) Medical hours as Branch needed for Wheezing or Shortness of Breath. inhalationa 2020-0 Yes [id number] Use as [facility] l spacing 2-22 directed ity of device 00:00: [place] ([address]) albuterol 2020-0 Yes [id number] 2{puff} Inhale 2 [facility] 90 2-22 Puffs ity of mcg/actuati 00:00: every 4 [facility] as on inhaler 00 (four) Medical hours as Branch needed for Wheezing or Shortness of Breath. inhalationa 2020-0 Yes [id number] Use as [facility] l spacing 2-22 directed ity of device 00:00: [place] ([address]) albuterol 2020-0 Yes [id number] 2{puff} Inhale 2 [facility] 90 2-22 Puffs ity of mcg/actuati 00:00: every 4 [facility] as on inhaler 00 (four) Medical hours as Branch needed for Wheezing or Shortness of Breath. inhalationa 2020-0 Yes [id number] Use as [facility] l spacing 2-22 directed ity of device 00:00: [place] ([address]) albuterol 2020-0 Yes [id number] 2{puff} Inhale 2 [facility] 90 2-22 Puffs ity of mcg/actuati 00:00: every 4 [facility] as on inhaler 00 (four) Medical hours as Branch needed for Wheezing or Shortness of Breath. inhalationa 2020-0 Yes [id number] Use as [facility] l spacing 2-22 directed ity of device 00:00: [place] ([address]) albuterol 2020-0 Yes [id number] 2{puff} Inhale 2 [facility] 90 2-22 Puffs ity of mcg/actuati 00:00: every 4 [facility] as on inhaler 00 (four) Medical hours as Branch needed for Wheezing or Shortness of Breath. inhalationa 2020-0 Yes [id number] Use as [facility] l spacing 2-22 directed ity of device 00:00: [place] ([address]) albuterol 2020-0 Yes [id number] 2{puff} Inhale 2 [facility] 90 2-22 Puffs ity of mcg/actuati 00:00: every 4 [facility] as on inhaler 00 (four) Medical hours as Branch needed for Wheezing or Shortness of Breath. inhalationa 2020-0 Yes [id number] Use as [facility] l spacing 2-22 directed ity of device 00:00: [place] ([address]) albuterol 2020-0 Yes [id number] 2{puff} Inhale 2 [facility] 90 2-22 Puffs ity of mcg/actuati 00:00: every 4 [facility] as on inhaler 00 (four) Medical hours as Branch needed for Wheezing or Shortness of Breath. inhalationa 2020-0 Yes [id number] Use as [facility] l spacing 2-22 directed ity of device 00:00: [place] ([address]) albuterol 2020-0 Yes [id number] 2{puff} Inhale 2 [facility] 90 2-22 Puffs ity of mcg/actuati 00:00: every 4 [facility] as on inhaler 00 (four) Medical hours as Branch needed for Wheezing or Shortness of Breath. inhalationa 2020-0 Yes [id number] Use as [facility] l spacing 2-22 directed ity of device 00:00: [place] ([address]) albuterol 2020-0 Yes [id number] 2{puff} Inhale 2 [facility] 90 2-22 Puffs ity of mcg/actuati 00:00: every 4 [facility] as on inhaler 00 (four) Medical hours as Branch needed for Wheezing or Shortness of Breath. inhalationa 2020-0 Yes [id number] Use as [facility] l spacing 2-22 directed ity of device 00:00: [place] ([address]) albuterol 2020-0 Yes [id number] 2{puff} Inhale 2 [facility] 90 2-22 Puffs ity of mcg/actuati 00:00: every 4 [facility] as on inhaler 00 (four) Medical hours as Branch needed for Wheezing or Shortness of Breath. inhalationa 2020-0 Yes [id number] Use as [facility] l spacing 2-22 directed ity of device 00:00: [place] ([address]) albuterol 2020-0 Yes [id number] 2{puff} Inhale 2 [facility] 90 2-22 Puffs ity of mcg/actuati 00:00: every 4 [facility] as on inhaler 00 (four) Medical hours as Branch needed for Wheezing or Shortness of Breath. inhalationa 2020-0 Yes [id number] Use as [facility] l spacing 2-22 directed ity of device 00:00: [place] ([address]) albuterol 2020-0 Yes [id number] 2{puff} Inhale 2 [facility] 90 2-22 Puffs ity of mcg/actuati 00:00: every 4 [facility] as on inhaler 00 (four) Medical hours as Branch needed for Wheezing or Shortness of Breath. inhalationa 2020-0 Yes [id number] Use as [facility] l spacing 2-22 directed ity of device 00:00: [place] ([address]) albuterol 2020-0 Yes [id number] 2{puff} Inhale 2 [facility] 90 2-22 Puffs ity of mcg/actuati 00:00: every 4 [facility] as on inhaler 00 (four) Medical hours as Branch needed for Wheezing or Shortness of Breath. inhalationa 2020-0 Yes [id number] Use as [facility] l spacing 2-22 directed ity of device 00:00: [place] ([address]) albuterol 2020-0 Yes [id number] 2{puff} Inhale 2 [facility] 90 2-22 Puffs ity of mcg/actuati 00:00: every 4 [facility] as on inhaler 00 (four) Medical hours as Branch needed for Wheezing or Shortness of Breath. inhalationa 2020-0 Yes [id number] Use as [facility] l spacing 2-22 directed ity of device 00:00: [place] ([address]) albuterol 2020-0 Yes [id number] 2{puff} Inhale 2 [facility] 90 2-22 Puffs ity of mcg/actuati 00:00: every 4 [facility] as on inhaler 00 (four) Medical hours as Branch needed for Wheezing or Shortness of Breath. inhalationa 2020-0 Yes [id number] Use as [facility] l spacing 2-22 directed ity of device 00:00: [place] ([address]) albuterol 2020-0 Yes [id number] 2{puff} Inhale 2 [facility] 90 2-22 Puffs ity of mcg/actuati 00:00: every 4 [facility] as on inhaler 00 (four) Medical hours as Branch needed for Wheezing or Shortness of Breath. inhalationa 2020-0 Yes [id number] Use as [facility] l spacing 2-22 directed ity of device 00:00: [place] ([address]) albuterol 2020-0 Yes [id number] 2{puff} Inhale 2 [facility] 90 2-22 Puffs ity of mcg/actuati 00:00: every 4 [facility] as on inhaler 00 (four) Medical hours as Branch needed for Wheezing or Shortness of Breath. inhalationa 2020-0 Yes [id number] Use as [facility] l spacing 2-22 directed ity of device 00:00: [place] ([address]) albuterol 2020-0 Yes [id number] 2{puff} Inhale 2 [facility] 90 2-22 Puffs ity of mcg/actuati 00:00: every 4 [facility] as on inhaler 00 (four) Medical hours as Branch needed for Wheezing or Shortness of Breath. inhalationa 2020-0 Yes [id number] Use as [facility] l spacing 2-22 directed ity of device 00:00: [place] ([address]) albuterol 2020-0 Yes [id number] 2{puff} Inhale 2 [facility] 90 2-22 Puffs ity of mcg/actuati 00:00: every 4 [facility] as on inhaler 00 (four) Medical hours as Branch needed for Wheezing or Shortness of Breath. inhalationa 2020-0 Yes [id number] Use as [facility] l spacing 2-22 directed ity of device 00:00: [place] ([address]) albuterol 2020-0 Yes [id number] 2{puff} Inhale 2 [facility] 90 2-22 Puffs ity of mcg/actuati 00:00: every 4 [facility] as on inhaler 00 (four) Medical hours as Branch needed for Wheezing or Shortness of Breath. inhalationa 2020-0 Yes [id number] Use as [facility] l spacing 2-22 directed ity of device 00:00: [place] ([address]) albuterol 2020-0 Yes [id number] 2{puff} Inhale 2 [facility] 90 2-22 Puffs ity of mcg/actuati 00:00: every 4 [facility] as on inhaler 00 (four) Medical hours as Branch needed for Wheezing or Shortness of Breath. inhalationa 2020-0 Yes [id number] Use as [facility] l spacing 2-22 directed ity of device 00:00: [place] ([address]) albuterol 2020-0 Yes [id number] 2{puff} Inhale 2 [facility] 90 2-22 Puffs ity of mcg/actuati 00:00: every 4 [facility] as on inhaler 00 (four) Medical hours as Branch needed for Wheezing or Shortness of Breath. inhalationa 2020-0 Yes [id number] Use as [facility] l spacing 2-22 directed ity of device 00:00: [place] ([address]) albuterol 2020-0 Yes [id number] 2{puff} Inhale 2 [facility] 90 2-22 Puffs ity of mcg/actuati 00:00: every 4 [facility] as on inhaler 00 (four) Medical hours as Branch needed for Wheezing or Shortness of Breath. inhalationa 2020-0 Yes [id number] Use as [facility] l spacing 2-22 directed ity of device 00:00: [place] ([address]) albuterol 2020-0 Yes [id number] 2{puff} Inhale 2 [facility] 90 2-22 Puffs ity of mcg/actuati 00:00: every 4 [facility] as on inhaler 00 (four) Medical hours as Branch needed for Wheezing or Shortness of Breath. inhalationa 2020-0 Yes [id number] Use as [facility] l spacing 2-22 directed ity of device 00:00: [place] ([address]) albuterol 2020-0 Yes [id number] 2{puff} Inhale 2 [facility] 90 2-22 Puffs ity of mcg/actuati 00:00: every 4 [facility] as on inhaler 00 (four) Medical hours as Branch needed for Wheezing or Shortness of Breath. inhalationa 2020-0 Yes [id number] Use as [facility] l spacing 2-22 directed ity of device 00:00: [place] ([address]) albuterol 2020-0 Yes [id number] 2{puff} Inhale 2 [facility] 90 2-22 Puffs ity of mcg/actuati 00:00: every 4 [facility] as on inhaler 00 (four) Medical hours as Branch needed for Wheezing or Shortness of Breath. inhalationa 2020-0 Yes [id number] Use as [facility] l spacing 2-22 directed ity of device 00:00: [place] ([address]) albuterol 2020-0 Yes [id number] 2{puff} Inhale 2 [facility] 90 2-22 Puffs ity of mcg/actuati 00:00: every 4 [facility] as on inhaler 00 (four) Medical hours as Branch needed for Wheezing or Shortness of Breath. inhalationa 2020-0 Yes [id number] Use as [facility] l spacing 2-22 directed ity of device 00:00: [place] ([address]) albuterol 2020-0 Yes [id number] 2{puff} Inhale 2 [facility] 90 2-22 Puffs ity of mcg/actuati 00:00: every 4 [facility] as on inhaler 00 (four) Medical hours as Branch needed for Wheezing or Shortness of Breath. inhalationa 2020-0 Yes [id number] Use as [facility] l spacing 2-22 directed ity of device 00:00: [place] ([address]) albuterol 2020-0 Yes [id number] 2{puff} Inhale 2 [facility] 90 2-22 Puffs ity of mcg/actuati 00:00: every 4 [facility] as on inhaler 00 (four) Medical hours as Branch needed for Wheezing or Shortness of Breath. inhalationa 2020-0 Yes [id number] Use as [facility] l spacing 2-22 directed ity of device 00:00: [place] ([address]) albuterol 2020-0 Yes [id number] 2{puff} Inhale 2 [facility] 90 2-22 Puffs ity of mcg/actuati 00:00: every 4 [facility] as on inhaler 00 (four) Medical hours as Branch needed for Wheezing or Shortness of Breath. inhalationa 2020-0 Yes [id number] Use as [facility] l spacing 2-22 directed ity of device 00:00: [place] ([place] 00 [facility]) albuterol 2020-0 Yes [id number] 2{puff} Inhale 2 [facility] 90 2-22 Puffs ity of mcg/actuati 00:00: every 4 [facility] as on inhaler 00 (four) Medical hours as Branch needed for Wheezing or Shortness of Breath. inhalationa 2020-0 Yes [id number] Use as [facility] l spacing 2-22 directed ity of device 00:00: [place] ([address]) albuterol 2020-0 Yes [id number] 2{puff} Inhale 2 [facility] 90 2-22 Puffs ity of mcg/actuati 00:00: every 4 [facility] as on inhaler 00 (four) Medical hours as Branch needed for Wheezing or Shortness of Breath. inhalationa 2020-0 Yes [id number] Use as [facility] l spacing 2-22 directed ity of device 00:00: [place] ([address]) albuterol 2020-0 Yes [id number] 2{puff} Inhale 2 [facility] 90 2-22 Puffs ity of mcg/actuati 00:00: every 4 [facility] as on inhaler 00 (four) Medical hours as Branch needed for Wheezing or Shortness of Breath. acetaminoph 2020-0 Yes [id number] 1/2 - 1 [facility] en-codeine 2-22 tab Every ity of 300-30 mg 00:00: 4hrs as [place] tablet 00 needed for Medical pain or Branch cough requiring narcotic inhalationa 2020-0 Yes [id number] Use as [facility] l spacing 2-22 directed ity of device 00:00: [place] ([address]) albuterol 2020-0 Yes [id number] 2{puff} Inhale 2 [facility] 90 2-22 Puffs ity of mcg/actuati 00:00: every 4 [facility] as on inhaler 00 (four) Medical hours as Branch needed for Wheezing or Shortness of Breath. acetaminoph 2020-0 Yes [id number] 1/2 - 1 [facility] en-codeine 2-22 tab Every ity of 300-30 mg 00:00: 4hrs as [place] tablet 00 needed for Medical pain or Branch cough requiring narcotic inhalationa 2020-0 Yes [id number] Use as [facility] l spacing 2-22 directed ity of device 00:00: [place] ([place] 00 [facility]) albuterol 2020-0 Yes [id number] 2{puff} Inhale 2 [facility] 90 2-22 Puffs ity of mcg/actuati 00:00: every 4 [facility] as on inhaler 00 (four) Medical hours as Branch needed for Wheezing or Shortness of Breath. acetaminoph 2020-0 Yes [id number] 2 - 1 [facility] en-codeine 2-22 tab Every ity of 300-30 mg 00:00: 4hrs as [place] tablet 00 needed for Medical pain or Branch cough requiring narcotic inhalationa 2020-0 Yes [id number] Use as [facility] l spacing 2-22 directed ity of device 00:00: [place] ([place] 00 [facility]) albuterol 2020-0 Yes [id number] 2{puff} Inhale 2 [facility] 90 2-22 Puffs ity of mcg/actuati 00:00: every 4 [facility] as on inhaler 00 (four) Medical hours as Branch needed for Wheezing or Shortness of Breath. acetaminoph 2020-0 Yes [id number] 2 - 1 [facility] en-codeine 2-22 tab Every ity of 300-30 mg 00:00: 4hrs as [place] tablet 00 needed for Medical pain or Branch cough requiring narcotic inhalationa 2020-0 Yes [id number] Use as [facility] l spacing 2-22 directed ity of device 00:00: [place] ([place] 00 [facility]) albuterol 2020-0 Yes [id number] 2{puff} Inhale 2 [facility] 90 2-22 Puffs ity of mcg/actuati 00:00: every 4 [facility] as on inhaler 00 (four) Medical hours as Branch needed for Wheezing or Shortness of Breath. acetaminoph 2020-0 Yes [id number] 1/2 - 1 [facility] en-codeine 2-22 tab Every ity of 300-30 mg 00:00: 4hrs as [place] tablet 00 needed for Medical pain or Branch cough requiring narcotic inhalationa 2020-0 Yes [id number] Use as [facility] l spacing 2-22 directed ity of device 00:00: [place] [facility] albuterol 2020-0 Yes [id number] 2{puff} Inhale 2 [facility] 90 2-22 Puffs ity of mcg/actuati 00:00: every 4 [place] as on inhaler 00 (four) Medical hours as Branch needed for Wheezing or Shortness of Breath. acetaminoph 2020-0 Yes [id number] 1/2 - 1 [facility] en-codeine 2-22 tab Every ity of 300-30 mg 00:00: 4hrs as [place] tablet 00 needed for Medical pain or Branch cough requiring narcotic inhalationa 2020-0 Yes [id number] Use as [facility] l spacing 2-22 directed ity of device 00:00: [place] ([facility]) albuterol 2020-0 Yes [id number] 2{puff} Inhale 2 [facility] 90 2-22 Puffs ity of mcg/actuati 00:00: every 4 [place] as on inhaler 00 (four) Medical hours as Branch needed for Wheezing or Shortness of Breath. acetaminoph 2020-0 Yes [id number] 2 - 1 [facility] en-codeine 2-22 tab Every ity of 300-30 mg 00:00: 4hrs as [place] tablet 00 needed for Medical pain or Branch cough requiring narcotic inhalationa 2020-0 Yes [id number] Use as [facility] l spacing 2-22 directed ity of device 00:00: [place] ([facility]) albuterol 2020-0 Yes [id number] 2{puff} Inhale 2 [facility] 90 2-22 Puffs ity of mcg/actuati 00:00: every 4 [place] as on inhaler 00 (four) Medical hours as Branch needed for Wheezing or Shortness of Breath. acetaminoph 2020-0 Yes [id number] 2 - 1 [facility] en-codeine 2-22 tab Every ity of 300-30 mg 00:00: 4hrs as [place] tablet 00 needed for Medical pain or Branch cough requiring narcotic inhalationa 2020-0 Yes [id number] Use as [facility] l spacing 2-22 directed ity of device 00:00: [place] [facility] aerosol 2020-0 Yes See Admin Metho di holding 2-[address] chamber [facility] spacer [facility] l acetaminoph 2020-0 2020- No [id number] 09/18 [facility] en-codeine 11-08 09-10 tab Every ity of 300-30 mg 00:00: 00:00 4hrs [place] tablet 00 :00 needed for Medical pain or Branch cough requiring narcotic tiZANidine 2020-0 Yes [id number] 4mg Take 1-2 [facility] 4 mg tablet 2-13 tablets by it y of 00:00: mouth [place] 00 every 8 Medical (eight) Branch hours as needed (muscle pain or spasm). AMLODIPINE 2020-0 Yes [id number] TAKE 1 U nivers 2.5 mg 2-13 TABLET BY ity of tablet 00:00: MOUTH [place] 00 EVERY DAY Medical Branch tiZANidine 2020-0 Yes [id number] 4mg Take 1-2 [facility] 4 mg tablet 2-13 tablets by it y of 00:00: mouth [place] 00 every 8 Medical (eight) Branch hours as needed (muscle pain or spasm). AMLODIPINE 2020-0 Yes [id number] TAKE 1 U nivers 2.5 mg 2-13 TABLET BY ity of tablet 00:00: MOUTH [place] 00 EVERY DAY Medical Branch tiZANidine 2020-0 Yes [id number] 4mg Take 1-2 [facility] 4 mg tablet 2-13 tablets by it y of 00:00: mouth [place] 00 every 8 Medical (eight) Branch hours as needed (muscle pain or spasm). AMLODIPINE 2020-0 Yes [id number] TAKE 1 U nivers 2.5 mg 2-13 TABLET BY ity of tablet 00:00: MOUTH [place] 00 EVERY DAY Medical Branch tiZANidine 2020-0 Yes [id number] 4mg Take 1-2 [facility] 4 mg tablet 2-13 tablets by it y of 00:00: mouth [place] 00 every 8 Medical (eight) Branch hours as needed (muscle pain or spasm). AMLODIPINE 2020-0 Yes [id number] TAKE 1 U nivers 2.5 mg 2-13 TABLET BY ity of tablet 00:00: MOUTH [place] 00 EVERY DAY Medical Branch tiZANidine 2020-0 Yes [id number] 4mg Take 1-2 [facility] 4 mg tablet 2-13 tablets by it y of 00:00: mouth [place] 00 every 8 Medical (eight) Branch hours as needed (muscle pain or spasm). AMLODIPINE 2020-0 Yes [id number] TAKE 1 U nivers 2.5 mg 2-13 TABLET BY ity of tablet 00:00: MOUTH [place] 00 EVERY DAY Medical Branch tiZANidine 2020-0 Yes [id number] 4mg Take 1-2 [facility] 4 mg tablet 2-13 tablets by it y of 00:00: mouth [place] 00 every 8 Medical (eight) Branch hours as needed (muscle pain or spasm). AMLODIPINE 2020-0 Yes [id number] TAKE 1 U nivers 2.5 mg 2-13 TABLET BY ity of tablet 00:00: MOUTH [place] 00 EVERY DAY Medical Branch tiZANidine 2020-0 Yes [id number] 4mg Take 1-2 [facility] 4 mg tablet 2-13 tablets by it y of 00:00: mouth [place] 00 every 8 Medical (eight) Branch hours as needed (muscle pain or spasm). AMLODIPINE 2020-0 Yes [id number] TAKE 1 U nivers 2.5 mg 2-13 TABLET BY ity of tablet 00:00: MOUTH [place] 00 EVERY DAY Medical Branch tiZANidine 2020-0 Yes [id number] 4mg Take 1-2 [facility] 4 mg tablet 2-13 tablets by it y of 00:00: mouth [place] 00 every 8 Medical (eight) Branch hours as needed (muscle pain or spasm). AMLODIPINE 2020-0 Yes [id number] TAKE 1 U nivers 2.5 mg 2-13 TABLET BY ity of tablet 00:00: MOUTH [place] 00 EVERY DAY Medical Branch tiZANidine 2020-0 Yes [id number] 4mg Take 1-2 [facility] 4 mg tablet 2-13 tablets by it y of 00:00: mouth [place] 00 every 8 Medical (eight) Branch hours as needed (muscle pain or spasm). AMLODIPINE 2020-0 Yes [id number] TAKE 1 U nivers 2.5 mg 2-13 TABLET BY ity of tablet 00:00: MOUTH [place] 00 EVERY DAY Medical Branch tiZANidine 2020-0 Yes [id number] 4mg Take 1-2 [facility] 4 mg tablet 2-13 tablets by it y of 00:00: mouth [place] 00 every 8 Medical (eight) Branch hours as needed (muscle pain or spasm). AMLODIPINE 2020-0 Yes [id number] TAKE 1 U nivers 2.5 mg 2-13 TABLET BY ity of tablet 00:00: MOUTH [place] 00 EVERY DAY Medical Branch tiZANidine 2020-0 Yes [id number] 4mg Take 1-2 [facility] 4 mg tablet 2-13 tablets by it y of 00:00: mouth 00 every 8 Medical (eight) Branch hours as needed (muscle pain or spasm). AMLODIPINE 2020-0 Yes [id number] TAKE 1 U nivers 2.5 mg 2-13 TABLET BY ity of tablet 00:00: MOUTH 00 EVERY DAY Medical Branch tiZANidine 2020-0 Yes [id number] 4mg Take 1-2 [facility] 4 mg tablet 2-13 tablets by it y of 00:00: mouth 00 every 8 Medical (eight) Branch hours as needed (muscle pain or spasm). AMLODIPINE 2020-0 Yes [id number] TAKE 1 U nivers 2.5 mg 2-13 TABLET BY ity of tablet 00:00: MOUTH 00 EVERY DAY Medical Branch AMLODIPINE 2020-0 Yes [id number] TAKE 1 U nivers 2.5 mg 2-13 TABLET BY ity of tablet 00:00: MOUTH 00 EVERY DAY Medical Branch AMLODIPINE 2020-0 Yes [id number] TAKE 1 U nivers 2.5 mg 2-13 TABLET BY ity of tablet 00:00: MOUTH EVERY DAY Medical Branch AMLODIPINE 2020-0 Yes [id number] TAKE 1 U nivers 2.5 mg 2-13 TABLET BY ity of tablet 00:00: MOUTH 00 EVERY DAY Medical Branch AMLODIPINE 2020-0 Yes [id number] TAKE 1 U nivers 2.5 mg 2-13 TABLET BY ity of tablet 00:00: MOUTH 00 EVERY DAY Medical Branch AMLODIPINE 2020-0 Yes [id number] TAKE 1 U nivers 2.5 mg 2-13 TABLET BY ity of tablet 00:00: MOUTH 00 EVERY DAY Medical Branch AMLODIPINE 2020-0 Yes [id number] TAKE 1 U nivers 2.5 mg 2-13 TABLET BY ity of tablet 00:00: MOUTH 00 EVERY DAY Medical Branch AMLODIPINE 2020-0 Yes [id number] TAKE 1 U nivers 2.5 mg 2-13 TABLET BY ity of tablet 00:00: MOUTH 00 EVERY DAY Medical Branch AMLODIPINE 2020-0 Yes [id number] TAKE 1 U nivers 2.5 mg 2-13 TABLET BY ity of tablet 00:00: MOUTH 00 EVERY DAY Medical Branch AMLODIPINE 2020-0 Yes [id number] TAKE 1 U nivers 2.5 mg 2-13 TABLET BY ity of tablet 00:00: MOUTH 00 EVERY DAY Medical Branch AMLODIPINE 2020-0 Yes [id number] TAKE 1 U nivers 2.5 mg 2-13 TABLET BY ity of tablet 00:00: MOUTH [place] 00 EVERY DAY Medical Branch AMLODIPINE 2020-0 Yes [id number] TAKE 1 U nivers 2.5 mg 2-13 TABLET BY ity of tablet 00:00: MOUTH [place] 00 EVERY DAY Medical Branch AMLODIPINE 2020-0 Yes [id number] TAKE 1 U nivers 2.5 mg 2-13 TABLET BY ity of tablet 00:00: MOUTH [place] 00 EVERY DAY Medical Branch AMLODIPINE 2020-0 Yes [id number] TAKE 1 U nivers 2.5 mg 2-13 TABLET BY ity of tablet 00:00: MOUTH [place] 00 EVERY DAY Medical Branch AMLODIPINE 2020-0 Yes [id number] TAKE 1 U nivers 2.5 mg 2-13 TABLET BY ity of tablet 00:00: MOUTH [place] 00 EVERY DAY Medical Branch AMLODIPINE 2020-0 Yes [id number] TAKE 1 U nivers 2.5 mg 2-13 TABLET BY ity of tablet 00:00: MOUTH [place] 00 EVERY DAY Medical Branch AMLODIPINE 2020-0 Yes [id number] TAKE 1 U nivers 2.5 mg 2-13 TABLET BY ity of tablet 00:00: MOUTH [place] 00 EVERY DAY Medical Branch AMLODIPINE 2020-0 Yes [id number] TAKE 1 U nivers 2.5 mg 2-13 TABLET BY ity of tablet 00:00: MOUTH [place] 00 EVERY DAY Medical Branch tiZANidine 2020-0 Yes [id number] 4mg Take 1-2 [facility] 4 mg tablet 2-13 tablets by it y of 00:00: mouth [place] 00 every 8 Medical (eight) Branch hours as needed (muscle pain or spasm). amLODIPine 2020-0 Yes [id number] 2.5mg Take 1 [facility] 2.5 mg 2-13 tablet by ity of tablet 00:00: mouth [place] 00 daily. Medical Branch tiZANidine 2020-0 Yes [id number] 4mg Take 1-2 [facility] 4 mg tablet 2-13 tablets by it y of 00:00: mouth [place] 00 every 8 Medical (eight) Branch hours as needed (muscle pain or spasm). AMLODIPINE 2020-0 Yes [id number] TAKE 1 U nivers 2.5 mg 2-13 TABLET BY ity of tablet 00:00: MOUTH [place] 00 EVERY DAY Medical Branch tiZANidine 2020-0 Yes [id number] 4mg Take 1-2 [facility] 4 mg tablet 2-13 tablets by it y of 00:00: mouth [place] 00 every 8 Medical (eight) Branch hours as needed (muscle pain or spasm). AMLODIPINE 2020-0 Yes [id number] TAKE 1 U nivers 2.5 mg 2-13 TABLET BY ity of tablet 00:00: MOUTH [place] 00 EVERY DAY Medical Branch tiZANidine 2020-0 Yes [id number] 4mg Take 1-2 [facility] 4 mg tablet 2-13 tablets by it y of 00:00: mouth [place] 00 every 8 Medical (eight) Branch hours as needed (muscle pain or spasm). AMLODIPINE 2020-0 Yes [id number] TAKE 1 U nivers 2.5 mg 2-13 TABLET BY ity of tablet 00:00: MOUTH [place] 00 EVERY DAY Medical Branch tiZANidine 2020-0 Yes [id number] 4mg Take 1-2 [facility] 4 mg tablet 2-13 tablets by it y of 00:00: mouth [place] 00 every 8 Medical (eight) Branch hours as needed (muscle pain or spasm). AMLODIPINE 2020-0 Yes [id number] TAKE 1 U nivers 2.5 mg 2-13 TABLET BY ity of tablet 00:00: MOUTH [place] 00 EVERY DAY Medical Branch tiZANidine 2020-0 Yes [id number] 4mg Take 1-2 [facility] 4 mg tablet 2-13 tablets by it y of 00:00: mouth [place] 00 every 8 Medical (eight) Branch hours as needed (muscle pain or spasm). tiZANidine 2020-0 Yes [id number] 4mg Take 1-2 [facility] 4 mg tablet 2-13 tablets by it y of 00:00: mouth [place] 00 every 8 Medical (eight) Branch hours as needed (muscle pain or spasm). tiZANidine 2020-0 Yes [id number] 4mg Take 1-2 [facility] 4 mg tablet 2-13 tablets by it y of 00:00: mouth [place] 00 every 8 Medical (eight) Branch hours as needed (muscle pain or spasm). AMLODIPINE 2020-0 Yes [id number] TAKE 1 U nivers 2.5 mg 2-13 TABLET BY ity of tablet 00:00: MOUTH [place] 00 EVERY DAY Medical Branch tiZANidine 2020-0 Yes [id number] 4mg Take 1-2 [facility] 4 mg tablet 2-13 tablets by it y of 00:00: mouth [place] 00 every 8 Medical (eight) Branch hours as needed (muscle pain or spasm). AMLODIPINE 2020-0 Yes [id number] TAKE 1 U nivers 2.5 mg 2-13 TABLET BY ity of tablet 00:00: MOUTH [place] 00 EVERY DAY Medical Branch tiZANidine 2020-0 Yes [id number] 4mg Take 1-2 [facility] 4 mg tablet 2-13 tablets by it y of 00:00: mouth [place] 00 every 8 Medical (eight) Branch hours as needed (muscle pain or spasm). AMLODIPINE 2020-0 Yes [id number] TAKE 1 U nivers 2.5 mg 2-13 TABLET BY ity of tablet 00:00: MOUTH [place] 00 EVERY DAY Medical Branch tiZANidine 2020-0 Yes [id number] 4mg Take 1-2 [facility] 4 mg tablet 2-13 tablets by it y of 00:00: mouth [place] 00 every 8 Medical (eight) Branch hours as needed (muscle pain or spasm). AMLODIPINE 2020-0 Yes [id number] TAKE 1 U nivers 2.5 mg 2-13 TABLET BY ity of tablet 00:00: MOUTH [place] 00 EVERY DAY Medical Branch tiZANidine 2020-0 Yes [id number] 4mg Take 1-2 [facility] 4 mg tablet 2-13 tablets by it y of 00:00: mouth [place] 00 every 8 Medical (eight) Branch hours as needed (muscle pain or spasm). AMLODIPINE 2020-0 Yes [id number] TAKE 1 U nivers 2.5 mg 2-13 TABLET BY ity of tablet 00:00: MOUTH [place] 00 EVERY DAY Medical Branch tiZANidine 2020-0 Yes [id number] 4mg Take 1-2 [facility] 4 mg tablet 2-13 tablets by it y of 00:00: mouth [place] 00 every 8 Medical (eight) Branch hours as needed (muscle pain or spasm). AMLODIPINE 2020-0 Yes [id number] TAKE 1 U nivers 2.5 mg 2-13 TABLET BY ity of tablet 00:00: MOUTH [place] 00 EVERY DAY Medical Branch tiZANidine 2020-0 Yes [id number] 4mg Take 1-2 [facility] 4 mg tablet 2-13 tablets by it y of 00:00: mouth [place] 00 every 8 Medical (eight) Branch hours as needed (muscle pain or spasm). AMLODIPINE 2020-0 Yes [id number] TAKE 1 U nivers 2.5 mg 2-13 TABLET BY ity of tablet 00:00: MOUTH [place] 00 EVERY DAY Medical Branch AMLODIPINE 2020-0 2020- No [id number] TAKE 1 [facility] 2.5 mg 2-06-07 TABLET BY ity of tablet 00:00: 00:00 MOUTH [place] 00 :00 EVERY DAY Medical Branch AMLODIPINE 2019-0 2020- No [id number] TAKE 1 [facility] 2.5 mg 2-06-07 TABLET BY ity of tablet 00:00: 00:00 MOUTH [place] 00 :00 EVERY DAY Medical Branch tiZANidine 2019- 2020- No [id number] 4mg Take 1-2 [facility] 4 mg tablet 10-30 tablets by i ty of 00:00: 00:00 mouth [place] 00 :00 every 8 Medical (eight) Branch hours as needed (muscle pain or spasm). amLODIPine 2019- 2020- No [id number] 2.5mg Take 1 Univers 2.5 mg 2-10-30 tablet by ity of tablet 00:00: 00:00 mouth [place] 00 :00 daily. Medical Branch amLODIPine 2019- 2020- No [id number] 2.5mg Take 1 [facility] 2.5 mg 10-30 tablet by ity of tablet 00:00: 00:00 mouth [place] 00 :00 daily. Medical Branch amLODIPine 2019-0 2020- No [id number] 2.5mg Take 1 [facility] 2.5 mg 10-30 tablet by ity of tablet 00:00: 00:00 mouth [place] 00 :00 daily. Medical Branch alcaftadine 2019-[address] [facility] [place] (LASTACAFT) 1-06 each eye. ity of 0.25 % Drop 18:01: Medical Branch CYCLOSPORIN 2019-[address] [place] E (RESTASIS 1-06 each eye. ity of OPHTHALMIC) 18:01: Medical Branch ASCORBATE 2019-0 Yes Take by J[facility] CALCIUM 1-06 mouth. ity of (VITAMIN C 18:01: [place] ORAL) 24 Medical Branch DOCOSAHEXAN 2020-0 Yes Take by Uni vers OIC 1-06 mouth. ity of ACID/EPA 18:01: [place] (FISH OIL 24 Medical ORAL) Branch vitamin E 2020-0 Yes 1000U Take 1,000 U nivers 1,000 unit 1-06 Units by ity o f capsule 18:01: mouth [place] 24 daily. Medical Branch Magnesium 2020-0 Yes Take by [facility] 250 mg Tab 1-06 mouth. ity of 18:01: Medical Branch vitamin B-6 2020-0 Yes 100mg Take 100 U nivers (VITAMIN 1-06 mg by ity of B-6) 100 mg 18:01: mouth [place] tablet 24 daily. Medical Branch CALCIUM 2020-0 Yes Take by Univers CARBONATE/V 1-06 mouth. ity of ITAMIN D3 18:01: [place] (VITAMIN 24 Medical D-3 ORAL) Branch alcaftadine [...] OIC 1-06 mouth. ity of ACID/EPA 18:01: [place] (FISH OIL 24 Medical ORAL) Branch vitamin [...] 1-06 mouth. ity of ITAMIN D3 18:01: [place] (VITAMIN 24 Medical D-3 ORAL) Branch alcaftadine [...] 1-06 mouth. ity of ITAMIN D3 18:01: [place] (VITAMIN 24 Medical D-3 ORAL) Branch alcaftadine [...] OIC 1-06 mouth. ity of ACID/EPA 18:01: [place] (FISH OIL 24 Medical ORAL) Branch vitamin [...] 1-06 mouth. ity of ITAMIN D3 18:01: [place] (VITAMIN 24 Medical D-3 ORAL) Branch alcaftadine 2020-[address] [facility] [place] (LASTACAFT) 1-06 each eye. ity of 0.25 % Drop 18:01: [place] [address] Medical Branch CYCLOSPORIN 2020-[address] [place] E (RESTASIS 1-06 each eye. ity of OPHTHALMIC) 18:01: [place] [address] Medical Branch ASCORBATE 2020-0 Yes Take by Unive rs CALCIUM 1-06 mouth. ity of (VITAMIN C 18:01: [place] ORAL) 24 Medical Branch DOCOSAHEXAN 2020-0 Yes Take by Uni vers OIC 1-06 mouth. ity of ACID/EPA 18:01: [place] (FISH OIL 24 Medical ORAL) Branch vitamin E 2020-0 Yes 1000U Take 1,000 U nivers 1,000 unit 1-06 Units by ity o f capsule 18:01: mouth [place] 24 daily. Medical Branch Magnesium 2020-0 Yes Take by Unive rs 250 mg Tab 1-06 mouth. ity of 18:01: [place] [address] Medical Branch vitamin B-6 2020-0 Yes 100mg Take 100 U nivers (VITAMIN 1-06 mg by ity of B-6) 100 mg 18:01: mouth [place] tablet 24 daily. Medical Branch CALCIUM 2020-0 Yes Take by Univers CARBONATE/V 1-06 mouth. ity of ITAMIN D3 18:01: [place] (VITAMIN 24 Medical D-3 ORAL) Branch alcaftadine 2020-[address] [place] (LASTACAFT) 1-06 each eye. ity of 0.25 % Drop 18:01: [place] [address] Medical Branch CYCLOSPORIN 2020-[address] [place] E (RESTASIS 1-06 each eye. ity of OPHTHALMIC) 18:01: [place] [address] Medical Branch ASCORBATE 2020-0 Yes Take by Unive rs CALCIUM 1-06 mouth. ity of (VITAMIN C 18:01: [place] ORAL) 24 Medical Branch DOCOSAHEXAN 2020-0 Yes Take by Uni vers OIC 1-06 mouth. ity of ACID/EPA 18:01: [place] (FISH OIL 24 Medical ORAL) Branch vitamin E 2020-0 Yes 1000U Take 1,000 U nivers 1,000 unit 1-06 Units by ity o f capsule 18:01: mouth [place] 24 daily. Medical Branch Magnesium 2020-0 Yes Take by Un[facility] rs 250 mg Tab 1-06 mouth. ity of 18:01: [place] [address] Medical Branch vitamin B-6 2020-0 Yes 100mg Take 100 U nivers (VITAMIN 1-06 mg by ity of B-6) 100 mg 18:01: mouth [place] tablet 24 daily. Medical Branch CALCIUM 2020-0 Yes Take by Univers CARBONATE/V 1-06 mouth. ity of ITAMIN D3 18:01: [place] (VITAMIN 24 Medical D-3 ORAL) Branch alcaftadine [...] OIC 1-06 mouth. ity of ACID/EPA 18:01: [place] (FISH OIL 24 Medical ORAL) Branch vitamin [...] 1-06 mouth. ity of ITAMIN D3 18:01: [place] (VITAMIN 24 Medical D-3 ORAL) Branch alcaftadine [...] OIC 1-06 mouth. ity of ACID/EPA 18:01: [place] (FISH OIL 24 Medical ORAL) Branch vitamin [...] 1-06 mouth. ity of ITAMIN D3 18:01: [place] (VITAMIN 24 Medical D-3 ORAL) Branch alcaftadine [...] OIC 1-06 mouth. ity of ACID/EPA 18:01: [place] (FISH OIL 24 Medical ORAL) Branch vitamin [...] 1-06 mouth. ity of ITAMIN D3 18:01: [place] (VITAMIN 24 Medical D-3 ORAL) Branch alcaftadine [...] 1-06 mouth. ity of ITAMIN D3 18:01: [place] (VITAMIN 24 Medical D-3 ORAL) Branch alcaftadine [...] 1-06 mouth. ity of ITAMIN D3 18:01: [place] (VITAMIN 24 Medical D-3 ORAL) Branch alcaftadine [...] OIC 1-06 mouth. ity of ACID/EPA 18:01: [place] (FISH OIL 24 Medical ORAL) Branch vitamin [...] 1-06 mouth. ity of ITAMIN D3 18:01: [place] (VITAMIN 24 Medical D-3 ORAL) Branch alcaftadine [...] OIC 1-06 mouth. ity of ACID/EPA 18:01: [place] (FISH OIL 24 Medical ORAL) Branch vitamin [...] 1-06 mouth. ity of ITAMIN D3 18:01: [place] (VITAMIN 24 Medical D-3 ORAL) Branch alcaftadine 2019-[address] [place] (LASTACAFT) 1-06 each eye. ity of 0.25 % Drop 18:01: Medical Branch CYCLOSPORIN 2019-[address] [place] E (RESTASIS 1-06 each eye. ity of OPHTHALMIC) 18:01: Medical Branch ASCORBATE 2019-0 Yes Take by [facility] CALCIUM 1-06 mouth. ity of (VITAMIN C 18:01: [place] ORAL) 24 Medical Branch DOCOSAHEXAN 2019-0 Yes Take by Uni vers OIC 1-06 mouth. ity of ACID/EPA 18:01: [place] (FISH OIL 24 Medical ORAL) Branch vitamin E 2019-0 Yes 1000U Take 1,000 U nivers 1,000 unit 1-06 Units by ity o f capsule 18:01: mouth [place] 24 daily. Medical Branch Magnesium 2019-0 Yes Take by [facility] [facility] 250 mg Tab 1-06 mouth. ity of 18:01: Medical Branch vitamin B-6 2019-0 Yes 100mg Take 100 U nivers (VITAMIN 1-06 mg by ity of B-6) 100 mg 18:01: mouth [place] tablet 24 daily. Medical Branch CALCIUM 2019-0 Yes Take by Univers CARBONATE/V 1-06 mouth. ity of ITAMIN D3 18:01: [place] (VITAMIN 24 Medical D-3 ORAL) Branch TRIAMTERENE 2018-09 Yes [id number] TAKE 2 Univers -HYDROCHLOR 2-02 TABLETS BY it y of OTHIAZID 00:00: MOUTH [place] 37.5-25 mg 00 DAILY. Medical tablet Branch TRIAMTERENE 2018-09 Yes [id number] TAKE 2 Univers -HYDROCHLOR 2-02 TABLETS BY it y of OTHIAZID 00:00: MOUTH [place] 37.5-25 mg 00 DAILY. Medical tablet Branch TRIAMTERENE 2018-09 Yes [id number] TAKE 2 Univers -HYDROCHLOR 2-02 TABLETS BY it y of OTHIAZID 00:00: MOUTH [place] 37.5-25 mg 00 DAILY. [facility] [id number] TA[facility] 2 Univers -HYDROCHLOR 2-02 TABLETS BY it y of OTHIAZID 00:00: MOUTH [place] 37.5-25 mg 00 DAILY. Medical tablet Branch [facility] 2018-09 Yes [id number] TAKE 2 Univers -HYDROCHLOR 2-02 TABLETS BY it y of OTHIAZID 00:00: MOUTH [place] 37.5-25 mg 00 DAILY. Medical tablet [facility] Yes [id number] TAKE 2 Univers -HYDROCHLOR 2-02 TABLETS BY it y of OTHIAZID 00:00: MOUTH [place] 37.5-25 mg 00 DAILY. Medical tablet Branch [facility] 2018-09 Yes [id number] TAKE 2 Univers -HYDROCHLOR 2-02 TABLETS BY it y of OTHIAZID 00:00: MOUTH [place] 37.5-25 mg 00 DAILY. Medical tablet Branch [facility] 2018-09 Yes [id number] TAKE 2 Univers -HYDROCHLOR 2-02 TABLETS BY it y of OTHIAZID 00:00: MOUTH [place] 37.5-25 mg 00 DAILY. Medical tablet Branch [facility] 2018-09 Yes [id number] TAKE 2 Univers -HYDROCHLOR 2-02 TABLETS BY it y of OTHIAZID 00:00: MOUTH [place] 37.5-25 mg 00 DAILY. Medical tablet Branch [facility] 2018-09 Yes [id number] TAKE 2 Univers -HYDROCHLOR 2-02 TABLETS BY it y of OTHIAZID 00:00: MOUTH [place] 37.5-25 mg 00 DAILY. Medical tablet Branch [facility] 2018-09 Yes [id number] TAKE 2 Univers -HYDROCHLOR 2-02 TABLETS BY it y of OTHIAZID 00:00: MOUTH [place] 37.5-25 mg 00 DAILY. Medical tablet Branch [facility] 2018-09 Yes [id number] TAKE 2 Univers -HYDROCHLOR 2-02 TABLETS BY it y of OTHIAZID 00:00: MOUTH [place] 37.5-25 mg 00 DAILY. Medical tablet Branch [facility] 2018-09 Yes [id number] TAKE 2 Univers -HYDROCHLOR 2-02 TABLETS BY it y of OTHIAZID 00:00: MOUTH [place] 37.5-25 mg 00 DAILY. Medical tablet Branch [facility] 2018-09 Yes [id number] TAKE 2 Univers -HYDROCHLOR 2-02 TABLETS BY it y of OTHIAZID 00:00: MOUTH [place] 37.5-25 mg 00 DAILY. Medical tablet Branch TRIAMTERENE 2018-09 Yes [id number] TAKE 2 Univers -HYDROCHLOR 2-02 TABLETS BY it y of OTHIAZID 00:00: MOUTH [place] 37.5-25 mg 00 DAILY. Medical tablet Branch TRITERENE 2018-09 Yes [id number] TAKE 2 Univers -HYDROCHLOR 2-02 TABLETS BY it y of OTHIAZID 00:00: MOUTH [place] 37.5-25 mg 00 DAILY. Medical tablet Branch TRIAMTERENE 2018-09 Yes [id number] TAKE 2 Univers -HYDROCHLOR 2-02 TABLETS BY it y of OTHIAZID 00:00: MOUTH [place] 37.5-25 mg 00 DAILY. Medical tablet Branch TRIAMTERENE 2018-09 Yes [id number] TAKE 2 Univers -HYDROCHLOR 2-02 TABLETS BY it y of OTHIAZID 00:00: MOUTH [place] 37.5-25 mg 00 DAILY. Medical tablet Branch TRITERENE 2018-09 Yes [id number] TAKE 2 Univers -HYDROCHLOR 2-02 TABLETS BY it y of OTHIAZID 00:00: MOUTH [place] 37.5-25 mg 00 DAILY. Medical tablet Branch TRITERENE 2018-09 Yes [id number] TAKE 2 Univers -HYDROCHLOR 2-02 TABLETS BY it y of OTHIAZID 00:00: MOUTH [place] 37.5-25 mg 00 DAILY. Medical tablet Branch TRIAMTERENE 2018-09 Yes [id number] TAKE 2 Univers -HYDROCHLOR 2-02 TABLETS BY it y of OTHIAZID 00:00: MOUTH [place] 37.5-25 mg 00 DAILY. Medical tablet Branch TRIAMTERENE 2018-09 Yes [id number] TAKE 2 Univers -HYDROCHLOR 2-02 TABLETS BY it y of OTHIAZID 00:00: MOUTH [place] 37.5-25 mg 00 DAILY. Medical tablet Branch TRIAMTERENE 2018-09 Yes [id number] TAKE 2 Univers -HYDROCHLOR 2-02 TABLETS BY it y of OTHIAZID 00:00: MOUTH [place] 37.5-25 mg 00 DAILY. Medical tablet Branch TRIAMTERENE 2018-09 Yes [id number] TAKE 2 Univers -HYDROCHLOR 2-02 TABLETS BY it y of OTHIAZID 00:00: MOUTH [place] 37.5-25 mg 00 DAILY. Medical tablet Branch TRIAMTERENE 2018-09 Yes [id number] TAKE 2 Univers -HYDROCHLOR 2-02 TABLETS BY it y of OTHIAZID 00:00: MOUTH [place] 37.5-25 mg 00 DAILY. Medical tablet Branch TRIAMTERENE 2018-09 Yes [id number] TAKE 2 Univers -HYDROCHLOR 2-02 TABLETS BY it y of OTHIAZID 00:00: MOUTH [place] 37.5-25 mg 00 DAILY. [facility] [id number] TA[facility] 2 [facility] -HYDROCHLOR 2-02 TABLETS BY it y of OTHIAZID 00:00: MOUTH [place] 37.5-25 mg 00 DAILY. [facility] [id number] TAKE 2 Univers -HYDROCHLOR 2-02 TABLETS BY it y of OTHIAZID 00:00: MOUTH [place] 37.5-25 mg 00 DAILY. [facility] Yes [id number] TAKE 2 Univers -HYDROCHLOR 2-02 TABLETS BY it y of OTHIAZID 00:00: MOUTH [place] 37.5-25 mg 00 DAILY. Medical tablet Branch tiZANidine 2018-09 Yes [id number] 2mg Take 1-2 Univers 2 mg tablet 1-20 tablets by it y of 00:00: mouth [place] 00 every 8 Medical (eight) Branch hours as needed (muscle pain or spasm). tiZANidine 2018-09 Yes [id number] 2mg Take 1-2 [facility] 2 mg tablet 1-20 tablets by it y of 00:00: mouth [place] 00 every 8 Medical (eight) Branch hours as needed (muscle pain or spasm). tiZANidine 2018-09 2020- No [id number] 2mg Take 1-2 [facility] 2 mg tablet 1-20 02-13 tablets by i ty of 00:00: 00:00 mouth [place] 00 :00 every 8 Medical (eight) Branch hours as needed (muscle pain or spasm). tiZANidine 2018-09 2020- No [id number] 2mg Take 1-2 [facility] 2 mg tablet 1-20 02-13 tablets by i ty of 00:00: 00:00 mouth [place] 00 :00 every 8 Medical (eight) Branch hours as needed (muscle pain or spasm). TRAZODONE 2018-09 Yes [id number] 100mg TAKE 1 [facility] 100 mg 0-08 TABLET BY [facility] of tablet 00:00: MOUTH AT [place] 00 BEDTIME. Medical FOR Branch INSOMNIA. TRAZODONE 2018-09 Yes [id number] 100mg TAKE 1 [facility] 100 mg 0-08 TABLET BY [facility] of tablet 00:00: MOUTH AT [place] 00 BEDTIME. Medical FOR Branch INSOMNIA. TRAZODONE 2018-09 Yes [id number] 100mg TAKE 1 [facility] 100 mg 0-08 TABLET BY [facility] of tablet 00:00: MOUTH AT [place] 00 BEDTIME. Medical FOR Branch INSOMNIA. TRAZODONE 2018-09 Yes [id number] 100mg TAKE 1 [facility] 100 mg 0-08 TABLET BY [facility] of tablet 00:00: MOUTH AT [place] 00 BEDTIME. Medical FOR Branch INSOMNIA. TRAZODONE 2018-09 Yes [id number] 100mg TAKE 1 [facility] 100 mg 0-08 TABLET BY [facility] of tablet 00:00: MOUTH AT [place] 00 BEDTIME. Medical FOR Branch INSOMNIA. TRAZODONE 2018-09 Yes [id number] 100mg TAKE 1 [facility] 100 mg 0-08 TABLET BY [facility] of tablet 00:00: MOUTH AT [place] 00 BEDTIME. Medical FOR Branch INSOMNIA. TRAZODONE 2018-09 Yes [id number] 100mg TAKE 1 [facility] 100 mg 0-08 TABLET BY [facility] of tablet 00:00: MOUTH AT [place] [address] BEDTIME. Medical FOR Branch INSOMNIA. TRAZODONE 2018-09 Yes [id number] 100mg TAKE 1 [facility] 100 mg 0-08 TABLET BY [facility] of tablet 00:00: MOUTH AT [place] [address] BEDTIME. Medical FOR Branch INSOMNIA. TRAZODONE 2018-09 Yes [id number] 100mg TAKE 1 [facility] 100 mg 0-08 TABLET BY [facility] of tablet 00:00: MOUTH AT [place] [address] BEDTIME. Medical FOR Branch INSOMNIA. TRAZODONE 2018-09 Yes [id number] 100mg TAKE 1 [facility] 100 mg 0-08 TABLET BY [facility] of tablet 00:00: MOUTH AT [place] [address] BEDTIME. Medical FOR Branch INSOMNIA. TRAZODONE 2018-09 Yes [id number] 100mg TAKE 1 [facility] 100 mg 0-08 TABLET BY [facility] of tablet 00:00: MOUTH AT [place] 00 BEDTIME. Medical FOR Branch INSOMNIA. TRAZODONE 2018-09 Yes [id number] 100mg TAKE 1 [facility] 100 mg 0-08 TABLET BY [facility] of tablet 00:00: MOUTH AT [place] 00 BEDTIME. Medical FOR Branch INSOMNIA. TRAZODONE 2018-09 Yes [id number] 100mg TAKE 1 [facility] 100 mg 0-08 TABLET BY [facility] of tablet 00:00: MOUTH AT [place] 00 BEDTIME. Medical FOR Branch INSOMNIA. TRAZODONE 2018-09 Yes [id number] 100mg TAKE 1 [facility] 100 mg 0-08 TABLET BY [facility] of tablet 00:00: MOUTH AT [place] 00 BEDTIME. Medical FOR Branch INSOMNIA. TRAZODONE 2018-09 Yes [id number] 100mg TAKE 1 [facility] 100 mg 0-08 TABLET BY [facility] of tablet 00:00: MOUTH AT [place] 00 BEDTIME. Medical FOR Branch INSOMNIA. TRAZODONE 2018-09 Yes [id number] 100mg TAKE 1 [facility] 100 mg 0-08 TABLET BY [facility] of tablet 00:00: MOUTH AT [place] 00 BEDTIME. Medical FOR Branch INSOMNIA. TRAZODONE 2018-09 Yes [id number] 100mg TAKE 1 [facility] 100 mg 0-08 TABLET BY [facility] of tablet 00:00: MOUTH AT [place] 00 BEDTIME. Medical FOR Branch INSOMNIA. TRAZODONE 2018-09 Yes [id number] 100mg TAKE 1 [facility] 100 mg 0-08 TABLET BY [facility] of tablet 00:00: MOUTH AT [place] 00 BEDTIME. Medical FOR Branch INSOMNIA. TRAZODONE 2018-09 Yes [id number] 100mg TAKE 1 [facility] 100 mg 0-08 TABLET BY [facility] of tablet 00:00: MOUTH AT [place] 00 BEDTIME. Medical FOR Branch INSOMNIA. TRAZODONE 2018-09 Yes [id number] 100mg TAKE 1 [facility] 100 mg 0-08 TABLET BY [facility] of tablet 00:00: MOUTH AT [place] 00 BEDTIME. Medical FOR Branch INSOMNIA. TRAZODONE 2018-09 2020- No [id number] 100mg TAKE 1 [facility] 100 mg 0-08 04-06 TABLET BY [facility] of tablet 00:00: 00:00 MOUTH AT [place] 00 :00 BEDTIME. Medical FOR Branch INSOMNIA. cyclobenzap Yes [id number] 10mg Take 1 [facility] rine 10 mg 9-30 tablet by [facility] of tablet 00:00: mouth 3 [place] 00 (three) Medical times Branch daily. cyclobenzap Yes [id number] 10mg Take 1 [facility] rine 10 mg 9-30 tablet by [facility] of tablet 00:00: mouth 3 [place] 00 (three) Medical times Branch daily. cyclobenzap Yes [id number] 10mg Take 1 [facility] rine 10 mg 9-30 tablet by [facility] of tablet 00:00: mouth 3 (three) Medical times Branch daily. cyclobenzap Yes [id number] 10mg Take 1 [facility] rine 10 mg 9-30 tablet by [facility] of tablet 00:00: mouth 3 (three) Medical times Branch daily. cyclobenzap Yes [id number] 10mg Take 1 [facility] rine 10 mg 9-30 tablet by [facility] of tablet 00:00: mouth 3 (three) Medical times Branch daily. cyclobenzap Yes [id number] 10mg Take 1 [facility] rine 10 mg 9-30 tablet by [facility] of tablet 00:00: mouth 3 (three) Medical times Branch daily. cyclobenzap Yes [id number] 10mg Take 1 [facility] rine 10 mg 9-30 tablet by [facility] of tablet 00:00: mouth 3 (three) Medical times Branch daily. cyclobenzap Yes [id number] 10mg Take 1 [facility] rine 10 mg 9-30 tablet by [facility] of tablet 00:00: mouth (three) Medical times Branch daily. cyclobenzap Yes [id number] 10mg Take 1 [facility] rine 10 mg 9-30 tablet by [facility] of tablet 00:00: mouth (three) Medical times Branch daily. cyclobenzap Yes [id number] 10mg Take 1 [facility] rine 10 mg 9-30 tablet by [facility] of tablet 00:00: mouth 3 (three) Medical times Branch daily. cyclobenzap Yes [id number] 10mg Take 1 [facility] rine 10 mg 9-30 tablet by [facility] of tablet 00:00: mouth 3 (three) Medical times Branch daily. cyclobenzap Yes [id number] 10mg Take 1 [facility] rine 10 mg 9-30 tablet by [facility] of tablet 00:00: mouth 3 (three) Medical times Branch daily. cyclobenzap Yes [id number] 10mg Take 1 [facility] rine 10 mg 9-30 tablet by [facility] of tablet 00:00: mouth 3 (three) Medical times Branch daily. cyclobenzap Yes [id number] 10mg Take 1 [facility] rine 10 mg 9-30 tablet by [facility] of tablet 00:00: mouth 3 (three) Medical times Branch daily. cyclobenzap Yes [id number] 10mg Take 1 [facility] rine 10 mg 9-30 tablet by [facility] of tablet 00:00: mouth (three) Medical times Branch daily. cyclobenzap Yes [id number] 10mg Take 1 [facility] rine 10 mg 9-30 tablet by [facility] of tablet 00:00: mouth (three) Medical times Branch daily. cyclobenzap Yes [id number] 10mg Take 1 [facility] rine 10 mg 9-30 tablet by [facility] of tablet 00:00: mouth (three) Medical times Branch daily. cyclobenzap Yes [id number] 10mg Take 1 [facility] rine 10 mg 9-30 tablet by [facility] of tablet 00:00: mouth (three) Medical times Branch daily. cyclobenzap Yes [id number] 10mg Take 1 [facility] rine 10 mg 9-30 tablet by [facility] of tablet 00:00: mouth (three) Medical times Branch daily. cyclobenzap Yes [id number] 10mg Take 1 [facility] rine 10 mg 9-30 tablet by [facility] of tablet 00:00: mouth (three) Medical times Branch daily. cyclobenzap Yes [id number] 10mg Take 1 [facility] rine 10 mg 9-30 tablet by [facility] of tablet 00:00: mouth (three) Medical times Branch daily. cyclobenzap Yes [id number] 10mg Take 1 [facility] rine 10 mg 9-30 tablet by [facility] of tablet 00:00: mouth (three) Medical times Branch daily. cyclobenzap Yes [id number] 10mg Take 1 [facility] rine 10 mg 9-30 tablet by [facility] of tablet 00:00: mouth 3 (three) Medical times Branch daily. cyclobenzap 2018- Yes [id number] 10mg Take 1 [facility] rine 10 mg 9-30 tablet by [facility] of tablet 00:00: mouth 3 (three) Medical times Branch daily. cyclobenzap Yes [id number] 10mg Take 1 [facility] rine 10 mg 9-30 tablet by [facility] of tablet 00:00: mouth (three) Medical times Branch daily. cyclobenzap 2018- Yes [id number] 10mg Take 1 [facility] rine 10 mg 9-30 tablet by [facility] of tablet 00:00: mouth (three) Medical times Branch daily. cyclobenzap 2018- Yes [id number] 10mg Take 1 [facility] rine 10 mg 9-30 tablet by [facility] of tablet 00:00: mouth (three) Medical times Branch daily. cyclobenzap 2018-0 Yes [id number] 10mg Take 1 [facility] rine 10 mg 9-30 tablet by [facility] of tablet 00:00: mouth (three) Medical times Branch daily. cyclobenzap 2018- Yes [id number] 10mg Take 1 [facility] rine 10 mg 9-30 tablet by [facility] of tablet 00:00: mouth (three) Medical times Branch daily. cyclobenzap 2018- Yes [id number] 10mg Take 1 [facility] rine 10 mg 9-30 tablet by [facility] of tablet 00:00: mouth (three) Medical times Branch daily. cyclobenzap Yes [id number] 10mg Take 1 [facility] rine 10 mg 9-30 tablet by ity of tablet 00:00: mouth (three) Medical times Branch daily. cyclobenzap 2018-0 Yes [id number] 10mg Take 1 [facility] rine 10 mg 9-30 tablet by [facility] of tablet 00:00: mouth (three) Medical times Branch daily. cyclobenzap 2018-0 Yes [id number] 10mg Take 1 [facility] rine 10 mg 9-30 tablet by [facility] of tablet 00:00: mouth (three) Medical times Branch daily. cyclobenzap 2018- Yes [id number] 10mg Take 1 [facility] rine 10 mg 9-30 tablet by [facility] of tablet 00:00: mouth (three) Medical times Branch daily. cyclobenzap 2019-0 Yes [id number] 10mg Take 1 [facility] rine 10 mg 9-30 tablet by [facility] of tablet 00:00: mouth 3 (three) Medical times Branch daily. cyclobenzap 2018- Yes [id number] 10mg Take 1 [facility] rine 10 mg 9-30 tablet by [facility] of tablet 00:00: mouth 3 [place] 00 (three) Medical times Branch daily. cyclobenzap 2019 Yes [id number] 10mg Take 1 [facility] rine 10 mg 9-30 tablet by [facility] of tablet 00:00: mouth 3 [place] 00 (three) Medical times Branch daily. cyclobenzap Yes [id number] 10mg Take 1 [facility] rine 10 mg 9-30 tablet by [facility]y of tablet 00:00: mouth 3 [place] 00 (three) Medical times Branch daily. cyclobenzap Yes [id number] 10mg Take 1 [facility] rine 10 mg 9-30 tablet by [facility] of tablet 00:00: mouth 3 [place] 00 (three) Medical times Branch daily. METFORMIN 2019- Yes [id number] TAKE 1 [facility] [place] 500 mg 9-30 TABLET BY ity o f 24 hr 00:00: MOUTH [place] tablet 00 EVERY DAY Medical WITH Branch BREAKFAST naproxen Yes [id number] 500mg Take 1 [facility] (NAPROSYN) 9-30 tablet by ity of 500 mg 00:00: mouth 2 [place] tablet 00 (two) Medical times Branch daily with meals. cyclobenzap Yes [id number] 10mg Take 1 [facility] rine 10 mg 9-30 tablet by [facility] of tablet 00:00: mouth 3 [place] 00 (three) Medical times Branch daily. METFORMIN 2018- Yes [id number] TAKE 1 [facility] [place] 500 mg 9-30 TABLET BY ity o f 24 hr 00:00: MOUTH [place] tablet 00 EVERY DAY Medical WITH Branch BREAKFAST naproxen 2018- Yes [id number] 500mg Take 1 [facility] (NAPROSYN) 9-30 tablet by ity of 500 mg 00:00: mouth 2 [place] tablet 00 (two) Medical times Branch daily with meals. cyclobenzap Yes [id number] 10mg Take 1 [facility] rine 10 mg 9-30 tablet by [facility] of tablet 00:00: mouth 3 [place] 00 (three) Medical times Branch daily. METFORMIN 2019- Yes [id number] TAKE 1 [facility] [place] [facility] 500 mg 9-30 TABLET BY ity o f 24 hr 00:00: MOUTH [place] tablet 00 EVERY DAY Medical WITH Branch BREAKFAST cyclobenzap Yes [id number] 10mg Take 1 [facility] rine 10 mg 9-30 tablet by [facility] of tablet 00:00: mouth 3 [place] 00 (three) Medical times Branch daily. METFORMIN 2019-0 Yes [id number] TAKE 1 [facility] [place] 500 mg 9-30 TABLET BY ity o f 24 hr 00:00: MOUTH [place] tablet 00 EVERY DAY Medical WITH Branch BREAKFAST cyclobenzap Yes [id number] 10mg Take 1 [facility] rine 10 mg 9-30 tablet by [facility] of tablet 00:00: mouth 3 [place] 00 (three) Medical times Branch daily. METFORMIN 2018- Yes [id number] TAKE 1 [facility] [place] 500 mg 9-30 TABLET BY ity o f 24 hr 00:00: MOUTH [place] tablet 00 EVERY DAY Medical WITH Branch BREAKFAST cyclobenzap Yes [id number] 10mg Take 1 [facility] rine 10 mg 9-30 tablet by [facility] of tablet 00:00: mouth 3 [place] 00 (three) Medical times Branch daily. METFORMIN 2018- Yes [id number] TAKE 1 [facility] [place] [facility] 500 mg 9-30 TABLET BY ity o f 24 hr 00:00: MOUTH [place] tablet 00 EVERY DAY Medical WITH Branch BREAKFAST cyclobenzap Yes [id number] 10mg Take 1 [facility] rine 10 mg 9-30 tablet by [facility] of tablet 00:00: mouth 3 [place] 00 (three) Medical times Branch daily. METFORMIN 2018- Yes [id number] TAKE 1 [facility] [place] [facility] 500 mg 9-30 TABLET BY ity o f 24 hr 00:00: MOUTH [place] tablet 00 EVERY DAY Medical WITH Branch BREAKFAST cyclobenzap Yes [id number] 10mg Take 1 [facility] rine 10 mg 9-30 tablet by ity of tablet 00:00: mouth 3 [place] 00 (three) Medical times Branch daily. METFORMIN 2018-0 Yes [id number] TAKE 1 [facility] [place] 500 mg 9-30 TABLET BY ity o f 24 hr 00:00: MOUTH [place] tablet 00 EVERY DAY Medical WITH Branch BREAKFAST cyclobenzap Yes [id number] 10mg Take 1 [facility] rine 10 mg 9-30 tablet by ity of tablet 00:00: mouth 3 [place] 00 (three) Medical times Branch daily. METFORMIN 2018-0 Yes [id number] TAKE 1 [facility] [place] 500 mg 9-30 TABLET BY ity o f 24 hr 00:00: MOUTH [place] tablet 00 EVERY DAY Medical WITH Branch BREAKFAST cyclobenzap Yes [id number] 10mg Take 1 [facility] rine 10 mg 9-30 tablet by [facility] of tablet 00:00: mouth 3 [place] 00 (three) Medical times Branch daily. METFORMIN 2019-0 Yes [id number] TAKE 1 [facility] [place] 500 mg 9-30 TABLET BY ity o f 24 hr 00:00: MOUTH [place] tablet 00 EVERY DAY Medical WITH Branch BREAKFAST cyclobenzap Yes [id number] 10mg Take 1 [facility] rine 10 mg 9-30 tablet by [facility] of tablet 00:00: mouth 3 [place] 00 (three) Medical times Branch daily. METFORMIN 2018-0 Yes [id number] TAKE 1 [facility] [place] [facility] 500 mg 9-30 TABLET BY ity o f 24 hr 00:00: MOUTH [place] tablet 00 EVERY DAY Medical WITH Branch BREAKFAST cyclobenzap Yes [id number] 10mg Take 1 [facility] rine 10 mg 9-30 tablet by ity of tablet 00:00: mouth 3 [place] 00 (three) Medical times Branch daily. METFORMIN 2018-0 Yes [id number] TAKE 1 [facility] [place] [facility] 500 mg 9-30 TABLET BY ity o f 24 hr 00:00: MOUTH [place] tablet 00 EVERY DAY Medical WITH Branch BREAKFAST cyclobenzap Yes [id number] 10mg Take 1 [facility] rine 10 mg 9-30 tablet by ity of tablet 00:00: mouth 3 [place] 00 (three) Medical times Branch daily. METFORMIN 2018-0 Yes [id number] TAKE 1 [facility] [place] [facility] 500 mg 9-30 TABLET BY ity o f 24 hr 00:00: MOUTH [place] tablet 00 EVERY DAY Medical WITH Branch BREAKFAST cyclobenzap Yes [id number] 10mg Take 1 [facility] rine 10 mg 9-30 tablet by ity of tablet 00:00: mouth 3 [place] 00 (three) Medical times Branch daily. METFORMIN 2018-0 Yes [id number] TAKE 1 [facility] [place] 500 mg 9-30 TABLET BY ity o f 24 hr 00:00: MOUTH [place] tablet 00 EVERY DAY Medical WITH Branch BREAKFAST cyclobenzap Yes [id number] 10mg Take 1 [facility] rine 10 mg 9-30 tablet by [facility] of tablet 00:00: mouth 3 [place] 00 (three) Medical times Branch daily. cyclobenzap Yes [id number] 10mg Take 1 [facility] rine 10 mg 9-30 tablet by it[facility] of tablet 00:00: mouth 3 [place] 00 (three) Medical times Branch daily. cyclobenzap Yes [id number] 10mg Take 1 [facility] rine 10 mg 9-30 tablet by ity of tablet 00:00: mouth 3 [place] 00 (three) Medical times Branch daily. cyclobenzap 2020- No [id number] 10mg Take 1 [facility] rine 10 mg 9-30 10-05 tablet by ity of tablet 00:00: 00:00 mouth 3 [place] 00 :00 (three) Medical times Branch daily. cyclobenzap 2020- No [id number] 10mg Take 1 [facility] rine 10 mg 9-30 10-05 tablet by ity of tablet 00:00: 00:00 mouth 3 [place] 00 :00 (three) Medical times Branch daily. METFORMIN 2020- No [id number] TAKE 1 [facility] ER 500 mg 9-30 03-24 TABLET BY ity of 24 hr 00:00: 00:00 MOUTH [place] tablet 00 :00 EVERY DAY Medical WITH Branch BREAKFAST METFORMIN 2020- No [id number] TAKE 1 [facility] ER 500 mg 9-30 03-24 TABLET BY ity of 24 hr 00:00: 00:00 MOUTH [place] tablet 00 :00 EVERY DAY Medical WITH Branch BREAKFAST naproxen 2020- No [id number] 500mg Take 1 [facility] (NAPROSYN) 9-30 02-13 tablet by ity of 500 mg 00:00: 00:00 mouth 2 [place] tablet 00 :00 (two) Medical times Branch daily with meals. naproxen 2020- No [id number] 500mg Take 1 [facility] (NAPROSYN) 9-30 02-13 tablet by ity of 500 mg 00:00: 00:00 mouth 2 [place] tablet 00 :00 (two) Medical times Branch daily with meals. peg-electro Yes [id number] 4000mL Take 4,000 [facility] lyte soln 9-20 mL by ity of 236-22.74-6 00:00: mouth [place] .74 -5.86 00 SEE-INSTRU Medi kacey gram CTIONS. Branch solution Take as directed Diclofenac Yes [id number] Apply 2 to [facility] Sodium 1 % 9-16 4 grams ity of gel 00:00: 3-4 times [place] 00 daily as Medical needed. Branch Diclofenac Yes [id number] Apply 2 to [facility] Sodium 1 % 9-16 4 grams ity of gel 00:00: 3-4 times [place] 00 daily as Medical needed. Branch Diclofenac Yes [id number] Apply 2 to [facility] Sodium 1 % 9-16 4 grams ity of gel 00:00: 3-4 times [place] 00 daily as Medical needed. Branch Diclofenac Yes [id number] Apply 2 to [facility] Sodium 1 % 9-16 4 grams ity of gel 00:00: 3-4 times [place] 00 daily as Medical needed. Branch Diclofenac Yes [id number] Apply 2 to [facility] Sodium 1 % 9-16 4 grams ity of gel 00:00: 3-4 times [place] 00 daily as Medical needed. Branch Diclofenac Yes [id number] Apply 2 to [facility] Sodium 1 % 9-16 4 grams ity of gel 00:00: 3-4 times [place] 00 daily as Medical needed. Branch Diclofenac Yes [id number] Apply 2 to [facility] Sodium 1 % 9-16 4 grams ity of gel 00:00: 3-4 times [place] 00 daily as Medical needed. Branch Diclofenac Yes [id number] Apply 2 to [facility] Sodium 1 % 9-16 4 grams ity of gel 00:00: 3-4 times [place] 00 daily as Medical needed. Branch Diclofenac Yes [id number] Apply 2 to [facility] Sodium 1 % 9-16 4 grams ity of gel 00:00: 3-4 times [place] 00 daily as Medical needed. Branch Diclofenac Yes [id number] Apply 2 to [facility] Sodium 1 % 9-16 4 grams ity of gel 00:00: 3-4 times [place] 00 daily as Medical needed. Branch Diclofenac Yes [id number] Apply 2 to [facility] Sodium 1 % 9-16 4 grams ity of gel 00:00: 3-4 times [place] 00 daily as Medical needed. Branch Diclofenac Yes [id number] Apply 2 to [facility] Sodium 1 % 9-16 4 grams ity of gel 00:00: 3-4 times [place] 00 daily as Medical needed. Branch Diclofenac Yes [id number] Apply 2 to [facility] Sodium 1 % 9-16 4 grams ity of gel 00:00: 3-4 times [place] 00 daily as Medical needed. Branch Diclofenac Yes [id number] Apply 2 to [facility] Sodium 1 % 9-16 4 grams ity of gel 00:00: 3-4 times [place] 00 daily as Medical needed. Branch Diclofenac Yes [id number] Apply 2 to [facility] Sodium 1 % 9-16 4 grams ity of gel 00:00: 3-4 times [place] 00 daily as Medical needed. Branch Diclofenac Yes [id number] Apply 2 to [facility] Sodium 1 % 9-16 4 grams ity of gel 00:00: 3-4 times [place] 00 daily as Medical needed. Branch Diclofenac Yes [id number] Apply 2 to [facility] Sodium 1 % 9-16 4 grams ity of gel 00:00: 3-4 times [place] 00 daily as Medical needed. Branch Diclofenac Yes [id number] Apply 2 to [facility] Sodium 1 % 9-16 4 grams ity of gel 00:00: 3-4 times [place] 00 daily as Medical needed. Branch Diclofenac Yes [id number] Apply 2 to [facility] Sodium 1 % 9-16 4 grams ity of gel 00:00: 3-4 times [place] 00 daily as Medical needed. Branch Diclofenac Yes [id number] Apply 2 to [facility] Sodium 1 % 9-16 4 grams ity of gel 00:00: 3-4 times [place] 00 daily as Medical needed. Branch Diclofenac Yes [id number] Apply 2 to [facility] Sodium 1 % 9-16 4 grams ity of gel 00:00: 3-4 times [place] 00 daily as Medical needed. Branch Diclofenac Yes [id number] Apply 2 to [facility] Sodium 1 % 9-16 4 grams ity of gel 00:00: 3-4 times [place] 00 daily as Medical needed. Branch Diclofenac Yes [id number] Apply 2 to [facility] Sodium 1 % 9-16 4 grams ity of gel 00:00: 3-4 times [place] 00 daily as Medical needed. Branch Diclofenac Yes [id number] Apply 2 to [facility] Sodium 1 % 9-16 4 grams ity of gel 00:00: 3-4 times [place] 00 daily as Medical needed. Branch Diclofenac Yes [id number] Apply 2 to [facility] Sodium 1 % 9-16 4 grams ity of gel 00:00: 3-4 times [place] 00 daily as Medical needed. Branch Diclofenac Yes [id number] Apply 2 to [facility] Sodium 1 % 9-16 4 grams ity of gel 00:00: 3-4 times [place] 00 daily as Medical needed. Branch Diclofenac Yes [id number] Apply 2 to [facility] Sodium 1 % 9-16 4 grams ity of gel 00:00: 3-4 times [place] 00 daily as Medical needed. Branch Diclofenac Yes [id number] Apply 2 to [facility] Sodium 1 % 9-16 4 grams ity of gel 00:00: 3-4 times [place] 00 daily as Medical needed. Branch Diclofenac Yes [id number] Apply 2 to [facility] Sodium 1 % 9-16 4 grams ity of gel 00:00: 3-4 times [place] 00 daily as Medical needed. Branch Diclofenac Yes [id number] Apply 2 to [facility] Sodium 1 % 9-16 4 grams ity of gel 00:00: 3-4 times [place] 00 daily as Medical needed. Branch Diclofenac Yes [id number] Apply 2 to [facility] Sodium 1 % 9-16 4 grams ity of gel 00:00: 3-4 times [place] 00 daily as Medical needed. Branch Diclofenac Yes [id number] Apply 2 to [facility] Sodium 1 % 9-16 4 grams ity of gel 00:00: 3-4 times [place] 00 daily as Medical needed. Branch Diclofenac Yes [id number] Apply 2 to [facility] Sodium 1 % 9-16 4 grams ity of gel 00:00: 3-4 times [place] 00 daily as Medical needed. Branch Diclofenac Yes [id number] Apply 2 to [facility] Sodium 1 % 9-16 4 grams ity of gel 00:00: 3-4 times [place] 00 daily as Medical needed. Branch Diclofenac Yes [id number] Apply 2 to [facility] Sodium 1 % 9-16 4 grams ity of gel 00:00: 3-4 times [place] 00 daily as Medical needed. Branch Diclofenac Yes [id number] Apply 2 to [facility] Sodium 1 % 9-16 4 grams ity of gel 00:00: 3-4 times [place] 00 daily as Medical needed. Branch Diclofenac Yes [id number] Apply 2 to [facility] Sodium 1 % 9-16 4 grams ity of gel 00:00: 3-4 times [place] 00 daily as Medical needed. Branch Diclofenac Yes [id number] Apply 2 to [facility] Sodium 1 % 9-16 4 grams ity of gel 00:00: 3-4 times [place] 00 daily as Medical needed. Branch Diclofenac Yes [id number] Apply 2 to [facility] Sodium 1 % 9-16 4 grams ity of gel 00:00: 3-4 times [place] 00 daily as Medical needed. Branch Diclofenac Yes [id number] Apply 2 to [facility] Sodium 1 % 9-16 4 grams ity of gel 00:00: 3-4 times [place] 00 daily as Medical needed. Branch Diclofenac Yes [id number] Apply 2 to [facility] Sodium 1 % 9-16 4 grams ity of gel 00:00: 3-4 times [place] 00 daily as Medical needed. Branch Diclofenac Yes [id number] Apply 2 to [facility] Sodium 1 % 9-16 4 grams ity of gel 00:00: 3-4 times [place] 00 daily as Medical needed. Branch Diclofenac Yes [id number] Apply 2 to [facility] Sodium 1 % 9-16 4 grams ity of gel 00:00: 3-4 times [place] 00 daily as Medical needed. Branch Diclofenac Yes [id number] Apply 2 to [facility] Sodium 1 % 9-16 4 grams ity of gel 00:00: 3-4 times [place] 00 daily as Medical needed. Branch Diclofenac Yes [id number] Apply 2 to [facility] Sodium 1 % 9-16 4 grams ity of gel 00:00: 3-4 times [place] 00 daily as Medical needed. Branch Diclofenac Yes [id number] Apply 2 to [facility] Sodium 1 % 9-16 4 grams ity of gel 00:00: 3-4 times [place] 00 daily as Medical needed. Branch Diclofenac Yes [id number] Apply 2 to [facility] Sodium 1 % 9-16 4 grams ity of gel 00:00: 3-4 times [place] 00 daily as Medical needed. Branch Diclofenac Yes [id number] Apply 2 to [facility] Sodium 1 % 9-16 4 grams ity of gel 00:00: 3-4 times [place] 00 daily as Medical needed. Branch Diclofenac Yes [id number] Apply 2 to [facility] Sodium 1 % 9-16 4 grams ity of gel 00:00: 3-4 times [place] 00 daily as Medical needed. Branch Diclofenac Yes [id number] Apply 2 to [facility] Sodium 1 % 9-16 4 grams ity of gel 00:00: 3-4 times [place] 00 daily as Medical needed. Branch Diclofenac Yes [id number] Apply 2 to [facility] Sodium 1 % 9-16 4 grams ity of gel 00:00: 3-4 times [place] 00 daily as Medical needed. Branch Diclofenac Yes [id number] Apply 2 to [facility] Sodium 1 % 9-16 4 grams ity of gel 00:00: 3-4 times [place] 00 daily as Medical needed. Branch Diclofenac Yes [id number] Apply 2 to [facility] Sodium 1 % 9-16 4 grams ity of gel 00:00: 3-4 times [place] 00 daily as Medical needed. Branch Diclofenac Yes [id number] Apply 2 to [facility] Sodium 1 % 9-16 4 grams ity of gel 00:00: 3-4 times [place] 00 daily as Medical needed. Branch Diclofenac Yes [id number] Apply 2 to [facility] Sodium 1 % 9-16 4 grams ity of gel 00:00: 3-4 times [place] 00 daily as Medical needed. Branch Diclofenac Yes [id number] Apply 2 to [facility] Sodium 1 % 9-16 4 grams ity of gel 00:00: 3-4 times [place] 00 daily as Medical needed. Branch Diclofenac Yes [id number] Apply 2 to [facility] Sodium 1 % 9-16 4 grams ity of gel 00:00: 3-4 times [place] 00 daily as Medical needed. Branch Diclofenac Yes [id number] Apply 2 to [facility] Sodium 1 % 9-16 4 grams ity of gel 00:00: 3-4 times [place] 00 daily as Medical needed. Branch Diclofenac Yes [id number] Apply 2 to [facility] Sodium 1 % 9-16 4 grams ity of gel 00:00: 3-4 times [place] 00 daily as Medical needed. Branch Diclofenac Yes [id number] Apply 2 to [facility] Sodium 1 % 9-16 4 grams ity of gel 00:00: 3-4 times [place] 00 daily as Medical needed. Branch Diclofenac Yes [id number] Apply 2 to [facility] Sodium 1 % 9-16 4 grams ity of gel 00:00: 3-4 times [place] 00 daily as Medical needed. Branch Diclofenac Yes [id number] Apply 2 to [facility] Sodium 1 % 9-16 4 grams ity of gel 00:00: 3-4 times [place] 00 daily as Medical needed. Branch Diclofenac Yes [id number] Apply 2 to [facility] Sodium 1 % 9-16 4 grams ity of gel 00:00: 3-4 times [place] 00 daily as Medical needed. Mica Diclofenac Yes [id number] Apply 2 to [facility] Sodium 1 % 9-16 4 grams ity of gel 00:00: 3-4 times [place] 00 daily as Medical needed. [facility] Diclofenac Yes [id number] Apply 2 to [facility] Sodium 1 % 9-16 4 grams ity of gel 00:00: 3-4 times [place] 00 daily as Medical needed. [facility] Diclofenac Yes [id number] Apply 2 to [facility] Sodium 1 % 9-16 4 grams ity of gel 00:00: 3-4 times [place] 00 daily as Medical needed. [facility] Diclofenac Yes [id number] Apply 2 to [facility] Sodium 1 % 9-16 4 grams ity of gel 00:00: 3-4 times [place] 00 daily as Medical needed. [facility] Diclofenac Yes [id number] Apply 2 to [facility] Sodium 1 % 9-16 4 grams ity of gel 00:00: 3-4 times [place] 00 daily as Medical needed. [facility] Diclofenac Yes [id number] Apply 2 to [facility] Sodium 1 % 9-16 4 grams ity of gel 00:00: 3-4 times [place] 00 daily as Medical needed. [facility] methocarbam Yes [id number] 750mg Take 1 [facility] ol 9-16 tablet by ity of (ROBAXIN-75 00:00: mouth 4 [place] 0) 750 mg 00 (four) Medical tablet times [facility] daily as needed for Pain (scale 1-3). Diclofenac Yes [id number] Apply 2 to [facility] Sodium 1 % 9-16 4 grams ity of gel 00:00: 3-4 times [place] 00 daily as Medical needed. [facility] Diclofenac Yes [id number] Apply 2 to [facility] Sodium 1 % 9-16 4 grams ity of gel 00:00: 3-4 times [place] 00 daily as Medical needed. [facility] Diclofenac Yes [id number] Apply 2 to [facility] Sodium 1 % 9-16 4 grams ity of gel 00:00: 3-4 times [place] 00 daily as Medical needed. [facility] Diclofenac Yes [id number] Apply 2 to [facility] Sodium 1 % 9-16 4 grams ity of gel 00:00: 3-4 times [place] 00 daily as Medical needed. [facility] Diclofenac Yes [id number] Apply 2 to [facility] Sodium 1 % 9-16 4 grams ity of gel 00:00: 3-4 times [place] 00 daily as Medical needed. [facility] Diclofenac Yes [id number] Apply 2 to [facility] Sodium 1 % 9-16 4 grams ity of gel 00:00: 3-4 times [place] 00 daily as Medical needed. [facility] Diclofenac Yes [id number] Apply 2 to [facility] Sodium 1 % 9-16 4 grams ity of gel 00:00: 3-4 times [place] 00 daily as Medical needed. [facility] Diclofenac Yes [id number] Apply 2 to [facility] Sodium 1 % 9-16 4 grams it[facility] of gel 00:00: 3-4 times [place] 00 daily as Medical needed. [facility] Diclofenac Yes [id number] Apply 2 to [facility] Sodium 1 % 9-16 4 grams ity of gel 00:00: 3-4 times [place] 00 daily as Medical needed. [facility] Diclofenac Yes [id number] Apply 2 to [facility] Sodium 1 % 9-16 4 grams ity of gel 00:00: 3-4 times [place] 00 daily as Medical needed. [facility] methocarbam Yes [id number] 750mg Take 1 [facility] ol 9-16 tablet by ity of (ROBAXIN-75 00:00: mouth 4 [place] 0) 750 mg 00 (four) Medical tablet times [facility] daily as needed for Pain (scale 1-3). Diclofenac Yes [id number] Apply 2 to [facility] Sodium 1 % 9-16 4 grams it[facility] of gel 00:00: 3-4 times [place] 00 daily as Medical needed. [facility] Diclofenac Yes [id number] Apply 2 to [facility] Sodium 1 % 9-16 4 grams ity of gel 00:00: 3-4 times [place] 00 daily as Medical needed. [facility] Diclofenac Yes [id number] Apply 2 to [facility] Sodium 1 % 9-16 4 grams it[facility] of gel 00:00: 3-4 times [place] 00 daily as Medical needed. [facility] Diclofenac Yes [id number] Apply 2 to [facility] Sodium 1 % 9-16 4 grams it[facility] of gel 00:00: 3-4 times [place] 00 daily as Medical needed. [facility] Diclofenac Yes [id number] Apply 2 to [facility] Sodium 1 % 9-16 4 grams it[facility] of gel 00:00: 3-4 times [place] 00 daily as Medical needed. [facility] Diclofenac Yes [id number] Apply 2 to [facility] Sodium 1 % 9-16 4 grams it[facility] of gel 00:00: 3-4 times [place] 00 daily as Medical needed. [facility] Diclofenac Yes [id number] Apply 2 to [facility] Sodium 1 % 9-16 4 grams it[facility] of gel 00:00: 3-4 times [place] 00 daily as Medical needed. [facility] Diclofenac Yes [id number] Apply 2 to [facility] Sodium 1 % 9-16 4 grams it[facility] of gel 00:00: 3-4 times [place] 00 daily as Medical needed. [facility] Diclofenac Yes [id number] Apply 2 to [facility] Sodium 1 % 9-16 4 grams ity of gel 00:00: 3-4 times [place] 00 daily as Medical needed. [facility] Diclofenac Yes [id number] Apply 2 to [facility] Sodium 1 % 9-16 4 grams it[facility] of gel 00:00: 3-4 times [place] 00 daily as Medical needed. [facility] methocarbam Yes [id number] 750mg Take 1 [facility] ol 9-16 tablet by ity of (ROBAXIN-75 00:00: mouth 4 [place] 0) 750 mg 00 (four) Medical tablet times Branch daily as needed for Pain (scale 1-3). Diclofenac Yes [id number] Apply 2 to [facility] Sodium 1 % 9-16 4 grams it[facility] of gel 00:00: 3-4 times [place] 00 daily as Medical needed. [facility] Diclofenac Yes [id number] Apply 2 to [facility] Sodium 1 % 9-16 4 grams it[facility] of gel 00:00: 3-4 times [place] 00 daily as Medical needed. [facility] Diclofenac Yes [id number] Apply 2 to [facility] Sodium 1 % 9-16 4 grams it[facility] of gel 00:00: 3-4 times [place] 00 daily as Medical needed. [facility] Diclofenac Yes [id number] Apply 2 to [facility] Sodium 1 % 9-16 4 grams it[facility] of gel 00:00: 3-4 times [place] 00 daily as Medical needed. [facility] Diclofenac Yes [id number] Apply 2 to [facility] Sodium 1 % 9-16 4 grams ity of gel 00:00: 3-4 times [place] 00 daily as Medical needed. [facility] Diclofenac Yes [id number] Apply 2 to [facility] Sodium 1 % 9-16 4 grams it[facility] of gel 00:00: 3-4 times [place] 00 daily as Medical needed. [facility] Diclofenac Yes [id number] Apply 2 to [facility] Sodium 1 % 9-16 4 grams [facility] of gel 00:00: 3-4 times [place] 00 daily as Medical needed. [facility] Diclofenac Yes [id number] Apply 2 to [facility] Sodium 1 % 9-16 4 grams [facility] of gel 00:00: 3-4 times [place] 00 daily as Medical needed. [facility] methocarbam Yes [id number] 750mg Take 1 [facility] ol 9-16 tablet by [facility] of (ROBAXIN-75 00:00: mouth 4 [place] 0) 750 mg 00 (four) Medical tablet times Branch daily as needed for Pain (scale 1-3). Diclofenac Yes [id number] Apply 2 to [facility] Sodium 1 % 9-16 4 grams it[facility] of gel 00:00: 3-4 times [place] 00 daily as Medical needed. [facility] Diclofenac Yes [id number] Apply 2 to [facility] Sodium 1 % 9-16 4 grams [facility] of gel 00:00: 3-4 times [place] 00 daily as Medical needed. [facility] Diclofenac Yes [id number] Apply 2 to [facility] Sodium 1 % 9-16 4 grams [facility] of gel 00:00: 3-4 times [place] 00 daily as Medical needed. [facility] Diclofenac Yes [id number] Apply 2 to [facility] Sodium 1 % 9-16 4 grams [facility] of gel 00:00: 3-4 times [place] 00 daily as Medical needed. [facility] Diclofenac Yes [id number] Apply 2 to [facility] Sodium 1 % 9-16 4 grams it[facility] of gel 00:00: 3-4 times [place] 00 daily as Medical needed. [facility] Diclofenac Yes [id number] Apply 2 to [facility] Sodium 1 % 9-16 4 grams it[facility] of gel 00:00: 3-4 times [place] 00 daily as Medical needed. [facility] Diclofenac Yes [id number] Apply 2 to [facility] Sodium 1 % 9-16 4 grams it[facility] of gel 00:00: 3-4 times [place] 00 daily as Medical needed. [facility] Diclofenac Yes [id number] Apply 2 to [facility] Sodium 1 % 9-16 4 grams [facility] of gel 00:00: 3-4 times [place] 00 daily as Medical needed. [facility] methocarbam Yes [id number] 750mg Take 1 [facility] ol 9-16 tablet by it[facility] of (ROBAXIN-75 00:00: mouth 4 [place] 0) 750 mg 00 (four) Medical tablet times Branch daily as needed for Pain (scale 1-3). Diclofenac Yes [id number] Apply 2 to [facility] Sodium 1 % 9-16 4 grams it[facility] of gel 00:00: 3-4 times [place] 00 daily as Medical needed. Branch Diclofenac Yes [id number] Apply 2 to [facility] Sodium 1 % 9-16 4 grams [facility] of gel 00:00: 3-4 times [place] 00 daily as Medical needed. [facility] Diclofenac Yes [id number] Apply 2 to [facility] Sodium 1 % 9-16 4 grams [facility] of gel 00:00: 3-4 times [place] 00 daily as Medical needed. [facility] Diclofenac Yes [id number] Apply 2 to [facility] Sodium 1 % 9-16 4 grams it[facility] of gel 00:00: 3-4 times [place] 00 daily as Medical needed. [facility] Diclofenac Yes [id number] Apply 2 to [facility] Sodium 1 % 9-16 4 grams [facility] of gel 00:00: 3-4 times [place] 00 daily as Medical needed. [facility] Diclofenac Yes [id number] Apply 2 to [facility] Sodium 1 % 9-16 4 grams [facility] of gel 00:00: 3-4 times [place] 00 daily as Medical needed. [facility] Diclofenac Yes [id number] Apply 2 to [facility] Sodium 1 % 9-16 4 grams it[facility] of gel 00:00: 3-4 times [place] 00 daily as Medical needed. [facility] methocarbam Yes [id number] 750mg Take 1 [facility] ol 9-16 tablet by it[facility] of (ROBAXIN-75 00:00: mouth 4 [place] 0) 750 mg 00 (four) Medical tablet times Branch daily as needed for Pain (scale 1-3). Diclofenac Yes [id number] Apply 2 to [facility] Sodium 1 % 9-16 4 grams it[facility] of gel 00:00: 3-4 times [place] 00 daily as Medical needed. [facility] Diclofenac Yes [id number] Apply 2 to [facility] Sodium 1 % 9-16 4 grams [facility] of gel 00:00: 3-4 times [place] 00 daily as Medical needed. [facility] Diclofenac Yes [id number] Apply 2 to [facility] Sodium 1 % 9-16 4 grams it[facility] of gel 00:00: 3-4 times [place] 00 daily as Medical needed. Branch Diclofenac Yes [id number] Apply 2 to [facility] Sodium 1 % 9-16 4 grams ity of gel 00:00: 3-4 times [place] 00 daily as Medical needed. [facility] Diclofenac Yes [id number] Apply 2 to [facility] Sodium 1 % 9-16 4 grams it[facility] of gel 00:00: 3-4 times [place] 00 daily as Medical needed. [facility] Diclofenac Yes [id number] Apply 2 to [facility] Sodium 1 % 9-16 4 grams it[facility] of gel 00:00: 3-4 times [place] 00 daily as Medical needed. [facility] Diclofenac Yes [id number] Apply 2 to [facility] Sodium 1 % 9-16 4 grams it[facility] of gel 00:00: 3-4 times [place] 00 daily as Medical needed. [facility] Diclofenac Yes [id number] Apply 2 to [facility] Sodium 1 % 9-16 4 grams ity of gel 00:00: 3-4 times [place] 00 daily as Medical needed. [facility] Diclofenac Yes [id number] Apply 2 to [facility] Sodium 1 % 9-16 4 grams it[facility] of gel 00:00: 3-4 times [place] 00 daily as Medical needed. [facility] Diclofenac Yes [id number] Apply 2 to [facility] Sodium 1 % 9-16 4 grams it[facility] of gel 00:00: 3-4 times [place] 00 daily as Medical needed. Branch Diclofenac Yes [id number] Apply 2 to [facility] Sodium 1 % 9-16 4 grams ity of gel 00:00: 3-4 times [place] 00 daily as Medical needed. Branch Diclofenac Yes [id number] Apply 2 to [facility] Sodium 1 % 9-16 4 grams ity of gel 00:00: 3-4 times [place] 00 daily as Medical needed. Branch Diclofenac Yes [id number] Apply 2 to [facility] Sodium 1 % 9-16 4 grams ity of gel 00:00: 3-4 times [place] 00 daily as Medical needed. [facility] Diclofenac Yes [id number] Apply 2 to [facility] Sodium 1 % 9-16 4 grams it[facility] of gel 00:00: 3-4 times [place] 00 daily as Medical needed. Branch Diclofenac Yes [id number] Apply 2 to [facility] Sodium 1 % 9-16 4 grams ity of gel 00:00: 3-4 times [place] 00 daily as Medical needed. Branch Diclofenac Yes [id number] Apply 2 to [facility] Sodium 1 % 9-16 4 grams ity of gel 00:00: 3-4 times [place] 00 daily as Medical needed. Branch Diclofenac Yes [id number] Apply 2 to [facility] Sodium 1 % 9-16 4 grams it[facility] of gel 00:00: 3-4 times [place] 00 daily as Medical needed. [facility] Diclofenac Yes [id number] Apply 2 to [facility] Sodium 1 % 9-16 4 grams it[facility] of gel 00:00: 3-4 times [place] 00 daily as Medical needed. [facility] Diclofenac Yes [id number] Apply 2 to [facility] Sodium 1 % 9-16 4 grams it[facility] of gel 00:00: 3-4 times [place] 00 daily as Medical needed. Branch Diclofenac Yes [id number] Apply 2 to [facility] Sodium 1 % 9-16 4 grams ity of gel 00:00: 3-4 times [place] 00 daily as Medical needed. [facility] Diclofenac Yes [id number] Apply 2 to [facility] Sodium 1 % 9-16 4 grams ity of gel 00:00: 3-4 times [place] 00 daily as Medical needed. [facility] Diclofenac Yes [id number] Apply 2 to [facility] Sodium 1 % 9-16 4 grams it[facility] of gel 00:00: 3-4 times [place] 00 daily as Medical needed. [facility] Diclofenac Yes [id number] Apply 2 to [facility] Sodium 1 % 9-16 4 grams ity of gel 00:00: 3-4 times [place] 00 daily as Medical needed. Branch Diclofenac Yes [id number] Apply 2 to [facility] Sodium 1 % 9-16 4 grams ity of gel 00:00: 3-4 times [place] 00 daily as Medical needed. [facility] Diclofenac Yes [id number] Apply 2 to [facility] Sodium 1 % 9-16 4 grams ity of gel 00:00: 3-4 times [place] 00 daily as Medical needed. [facility] Diclofenac Yes [id number] Apply 2 to [facility] Sodium 1 % 9-16 4 grams it[facility] of gel 00:00: 3-4 times [place] 00 daily as Medical needed. [facility] Diclofenac Yes [id number] Apply 2 to [facility] Sodium 1 % 9-16 4 grams ity of gel 00:00: 3-4 times [place] 00 daily as Medical needed. Branch Diclofenac 2019-0 Yes [id number] Apply 2 to [facility] Sodium 1 % 9-16 4 grams [facility] of gel 00:00: 3-4 times [place] 00 daily as Medical needed. [facility] Diclofenac 2019-0 Yes [id number] Apply 2 to [facility] Sodium 1 % 9-16 4 grams ity of gel 00:00: 3-4 times [place] 00 daily as Medical needed. Branch TIZANIDINE 2018-0 Yes [id number] 2mg TAKE 1-2 [facility] 2 mg tablet 7-24 TABLETS BY it y of 00:00: MOUTH [place] 00 EVERY 8 Medical (EIGHT) Branch HOURS NEEDED (MUSCLE PAIN OR SPASM). TIZANIDINE 2018-0 Yes [id number] 2mg TAKE 1-2 [facility] 2 mg tablet 7-24 TABLETS BY it y of 00:00: MOUTH [place] 00 EVERY 8 Medical (EIGHT) Branch HOURS NEEDED (MUSCLE PAIN OR SPASM). TIZANIDINE 2018- Yes [id number] 2mg TAKE 1-2 [facility] 2 mg tablet 7-24 TABLETS BY it y of 00:00: MOUTH [place] 00 EVERY 8 Medical (EIGHT) Branch HOURS NEEDED (MUSCLE PAIN OR SPASM). TIZANIDINE 2018- Yes [id number] 2mg TAKE 1-2 [facility] 2 mg tablet 7-24 TABLETS BY it y of 00:00: MOUTH [place] 00 EVERY 8 Medical (EIGHT) Branch HOURS NEEDED (MUSCLE PAIN OR SPASM). TIZANIDINE 0 Yes [id number] 2mg TAKE 1-2 [facility] 2 mg tablet 7-24 TABLETS BY it y of 00:00: MOUTH [place] 00 EVERY 8 Medical (EIGHT) Branch HOURS NEEDED (MUSCLE PAIN OR SPASM). TIZANIDINE 2018-0 Yes [id number] 2mg TAKE 1-2 [facility] 2 mg tablet 7-24 TABLETS BY it y of 00:00: MOUTH [place] 00 EVERY 8 Medical (EIGHT) Branch HOURS NEEDED (MUSCLE PAIN OR SPASM). TIZANIDINE 2018-0 Yes [id number] 2mg TAKE 1-2 [facility] 2 mg tablet 7-24 TABLETS BY it y of 00:00: MOUTH [place] 00 EVERY 8 Medical (EIGHT) Branch HOURS NEEDED (MUSCLE PAIN OR SPASM). TIZANIDINE 2018-0 Yes [id number] 2mg TAKE 1-2 [facility] 2 mg tablet 7-24 TABLETS BY it y of 00:00: MOUTH [place] 00 EVERY 8 Medical (EIGHT) Branch HOURS NEEDED (MUSCLE PAIN OR SPASM). TIZANIDINE 2019-0 Yes [id number] 2mg TAKE 1-2 [facility] 2 mg tablet 7-24 TABLETS BY it y of 00:00: MOUTH [place] 00 EVERY 8 Medical (EIGHT) Branch HOURS NEEDED (MUSCLE PAIN OR SPASM). TIZANIDINE 2019-0 Yes [id number] 2mg TAKE 1-2 [facility] 2 mg tablet 7-24 TABLETS BY it y of 00:00: MOUTH [place] 00 EVERY 8 Medical (EIGHT) Branch HOURS NEEDED (MUSCLE PAIN OR SPASM). TIZANIDINE 2019-0 Yes [id number] 2mg TAKE 1-2 [facility] 2 mg tablet 7-24 TABLETS BY it y of 00:00: MOUTH [place] 00 EVERY 8 Medical (EIGHT) Branch HOURS NEEDED (MUSCLE PAIN OR SPASM). TIZANIDINE 2019-0 Yes [id number] 2mg TAKE 1-2 [facility] 2 mg tablet 7-24 TABLETS BY it y of 00:00: MOUTH [place] 00 EVERY 8 Medical (EIGHT) Branch HOURS NEEDED (MUSCLE PAIN OR SPASM). TIZANIDINE 2019-0 Yes [id number] 2mg TAKE 1-2 [facility] 2 mg tablet 7-24 TABLETS BY it y of 00:00: MOUTH [place] 00 EVERY 8 Medical (EIGHT) Branch HOURS NEEDED (MUSCLE PAIN OR SPASM). ibandronate 2019-0 Yes [id number] 150mg Take 1 [facility] 150 mg 7-23 tablet by ity of tablet 00:00: mouth once [place] 00 every Medical month. Branch ibandronate 2019-0 Yes [id number] 150mg Take 1 [facility] 150 mg 7-23 tablet by ity of tablet 00:00: mouth once 00 every Medical month. Branch ibandronate 2019-0 Yes [id number] 150mg Take 1 [facility] 150 mg 7-23 tablet by [facility]y of tablet 00:00: mouth once [place] 00 every Medical month. Branch ibandronate 2019-0 Yes [id number] 150mg Take 1 [facility] 150 mg 7-23 tablet by [facility]y of tablet 00:00: mouth once [place] 00 every Medical month. Branch ibandronate 2019-0 Yes [id number] 150mg Take 1 [facility] 150 mg 7-23 tablet by [facility] of tablet 00:00: mouth once [place] 00 every Medical month. Branch ibandronate 2019-0 Yes [id number] 150mg Take 1 [facility] 150 mg 7-23 tablet by [facility] of tablet 00:00: mouth once [place] 00 every Medical month. Branch ibandronate 2019-0 Yes [id number] 150mg Take 1 [facility] 150 mg 7-23 tablet by [facility] of tablet 00:00: mouth once [place] 00 every Medical month. Branch ibandronate 2019-0 Yes [id number] 150mg Take 1 [facility] 150 mg 7-23 tablet by [facility] of tablet 00:00: mouth once [place] 00 every Medical month. Branch ibandronate 2019-0 Yes [id number] 150mg Take 1 [facility] 150 mg 7-23 tablet by [facility] of tablet 00:00: mouth once [place] 00 every Medical month. Branch ibandronate 2019-0 Yes [id number] 150mg Take 1 [facility] 150 mg 7-23 tablet by [facility] of tablet 00:00: mouth once [place] 00 every Medical month. Branch ibandronate 2019-0 Yes [id number] 150mg Take 1 [facility] 150 mg 7-23 tablet by [facility] of tablet 00:00: mouth once [place] 00 every Medical month. Branch ibandronate 2019-0 Yes [id number] 150mg Take 1 [facility] 150 mg 7-23 tablet by [facility] of tablet 00:00: mouth once [place] 00 every Medical month. Branch ibandronate 2019-0 Yes [id number] 150mg Take 1 [facility] 150 mg 7-23 tablet by [facility] of tablet 00:00: mouth once [place] 00 every Medical month. Branch ibandronate 2019-0 Yes [id number] 150mg Take 1 [facility] 150 mg 7-23 tablet by [facility] of tablet 00:00: mouth once [place] 00 every Medical month. Branch ibandronate 2019-0 Yes [id number] 150mg Take 1 [facility] 150 mg 7-23 tablet by [facility] of tablet 00:00: mouth once [place] 00 every Medical month. Branch ibandronate 2019-0 Yes [id number] 150mg Take 1 [facility] 150 mg 7-23 tablet by [facility] of tablet 00:00: mouth once [place] 00 every Medical month. Branch ibandronate 2019-0 Yes [id number] 150mg Take 1 [facility] 150 mg 7-23 tablet by [facility]y of tablet 00:00: mouth once [place] 00 every Medical month. Branch ibandronate 2019-0 Yes [id number] 150mg Take 1 [facility] 150 mg 7-23 tablet by [facility] of tablet 00:00: mouth once [place] 00 every Medical month. Branch ibandronate 2019-0 Yes [id number] 150mg Take 1 [facility] 150 mg 7-23 tablet by [facility] of tablet 00:00: mouth once [place] 00 every Medical month. Branch ibandronate 2019-0 Yes [id number] 150mg Take 1 [facility] 150 mg 7-23 tablet by [facility] of tablet 00:00: mouth once [place] 00 every Medical month. Branch ibandronate 2019-0 Yes [id number] 150mg Take 1 [facility] 150 mg 7-23 tablet by [facility]y of tablet 00:00: mouth once [place] 00 every Medical month. Branch ibandronate 2019-0 Yes [id number] 150mg Take 1 [facility] 150 mg 7-23 tablet by [facility] of tablet 00:00: mouth once [place] 00 every Medical month. Branch ibandronate 2019-0 Yes [id number] 150mg Take 1 [facility] 150 mg 7-23 tablet by [facility] of tablet 00:00: mouth once [place] 00 every Medical month. Branch ibandronate 2019-0 Yes [id number] 150mg Take 1 [facility] 150 mg 7-23 tablet by [facility] of tablet 00:00: mouth once [place] 00 every Medical month. Branch ibandronate 2019-0 Yes [id number] 150mg Take 1 [facility] 150 mg 7-23 tablet by [facility] of tablet 00:00: mouth once [place] 00 every Medical month. Branch ibandronate 2019-0 Yes [id number] 150mg Take 1 [facility] 150 mg 7-23 tablet by [facility] of tablet 00:00: mouth once [place] 00 every Medical month. Branch ibandronate 2019-0 Yes [id number] 150mg Take 1 [facility] 150 mg 7-23 tablet by [facility] of tablet 00:00: mouth once [place] 00 every Medical month. Branch ibandronate 2019-0 Yes [id number] 150mg Take 1 [facility] 150 mg 7-23 tablet by [facility] of tablet 00:00: mouth once [place] 00 every Medical month. Branch ibandronate 2019-0 Yes [id number] 150mg Take 1 [facility] 150 mg 7-23 tablet by [facility] of tablet 00:00: mouth once [place] 00 every Medical month. Branch ibandronate 2019-0 Yes [id number] 150mg Take 1 [facility] 150 mg 7-23 tablet by [facility]y of tablet 00:00: mouth once [place] 00 every Medical month. Branch ibandronate 2019-0 Yes [id number] 150mg Take 1 [facility] 150 mg 7-23 tablet by [facility] of tablet 00:00: mouth once [place] 00 every Medical month. Branch ibandronate 2019-0 Yes [id number] 150mg Take 1 [facility] 150 mg 7-23 tablet by [facility] of tablet 00:00: mouth once [place] 00 every Medical month. Branch ibandronate 2019-0 Yes [id number] 150mg Take 1 [facility] 150 mg 7-23 tablet by [facility] of tablet 00:00: mouth once [place] 00 every Medical month. Branch ibandronate 2019-0 Yes [id number] 150mg Take 1 [facility] 150 mg 7-23 tablet by [facility] of tablet 00:00: mouth once [place] 00 every Medical month. Branch ibandronate 2019-0 Yes [id number] 150mg Take 1 [facility] 150 mg 7-23 tablet by [facility]y of tablet 00:00: mouth once [place] 00 every Medical month. Branch ibandronate 2019-0 Yes [id number] 150mg Take 1 [facility] 150 mg 7-23 tablet by [facility]y of tablet 00:00: mouth once [place] 00 every Medical month. Branch ibandronate 2019-0 Yes [id number] 150mg Take 1 [facility] 150 mg 7-23 tablet by ity of tablet 00:00: mouth once [place] 00 every Medical month. Branch ibandronate 2019-0 Yes [id number] 150mg Take 1 [facility] 150 mg 7-23 tablet by [facility]y of tablet 00:00: mouth once [place] 00 every Medical month. Branch ibandronate 2019-0 Yes [id number] 150mg Take 1 [facility] 150 mg 7-23 tablet by [facility]y of tablet 00:00: mouth once [place] 00 every Medical month. Branch ibandronate 2019-0 Yes [id number] 150mg Take 1 [facility] 150 mg 7-23 tablet by [facility]y of tablet 00:00: mouth once [place] 00 every Medical month. Branch ibandronate 2019-0 Yes [id number] 150mg Take 1 [facility] 150 mg 7-23 tablet by ity of tablet 00:00: mouth once [place] 00 every Medical month. Branch ibandronate 2019-0 Yes [id number] 150mg Take 1 [facility] 150 mg 7-23 tablet by [facility]y of tablet 00:00: mouth once [place] 00 every Medical month. Branch ibandronate 2019-0 Yes [id number] 150mg Take 1 [facility] 150 mg 7-23 tablet by ity of tablet 00:00: mouth once [place] 00 every Medical month. Branch ibandronate 2019-0 Yes [id number] 150mg Take 1 [facility] 150 mg 7-23 tablet by [facility]y of tablet 00:00: mouth once [place] 00 every Medical month. Branch ibandronate 2019-0 Yes [id number] 150mg Take 1 [facility] 150 mg 7-23 tablet by ity of tablet 00:00: mouth once [place] 00 every Medical month. Branch ibandronate 2019-0 Yes [id number] 150mg Take 1 [facility] 150 mg 7-23 tablet by ity of tablet 00:00: mouth once [place] 00 every Medical month. Branch ibandronate 2019-0 Yes [id number] 150mg Take 1 [facility] 150 mg 7-23 tablet by ity of tablet 00:00: mouth once [place] 00 every Medical month. Branch ibandronate 2019-0 Yes [id number] 150mg Take 1 [facility] 150 mg 7-23 tablet by ity of tablet 00:00: mouth once [place] 00 every Medical month. Branch ibandronate 2018-0 2020- No [id number] 150mg Take 1 [facility] 150 mg 7-23 - tablet by [facility] of tablet 00:00: 00:00 mouth once [place] 00 :00 every Medical month. Branch amLODIPine 2018- Yes [id number] 5mg Take 1 [facility] 5 mg tablet 7-02 tablet by ity of 00:00: mouth at [place] 00 bedtime. Medical Branch amLODIPine 2018-0 2019- No [id number] 5mg Take 1 [facility] 5 mg tablet 7-10 25- tablet by it y of 00:00: 00:00 mouth at [place] 00 :00 bedtime. Medical Branch amLODIPine 2019-0 2019- No [id number] 5mg Take 1 [facility] 5 mg tablet 7-10 25- tablet by it y of 00:00: 00:00 mouth at [place] 00 :00 bedtime. Medical Branch NEXIUM 40 2019-0 Yes [id number] 40mg TAKE 1 U nivers mg capsule 6-25 CAPSULE BY ity of 00:00: MOUTH [place] 00 DAILY WITH Medical BREAKFAST. Branch BRAND MEDICALLY NECESSARY. NEXIUM 40 2019-0 Yes [id number] 40mg TAKE 1 U nivers mg capsule 6-25 CAPSULE BY ity of 00:00: MOUTH [place] 00 DAILY WITH Medical BREAKFAST. Branch BRAND MEDICALLY NECESSARY. NEXIUM 40 2019-0 Yes [id number] 40mg TAKE 1 U nivers mg capsule 6-25 CAPSULE BY ity of 00:00: MOUTH [place] 00 DAILY WITH Medical BREAKFAST. Branch BRAND MEDICALLY NECESSARY. NEXIUM 40 2019-0 Yes [id number] 40mg TAKE 1 U nivers mg capsule 6-25 CAPSULE BY ity of 00:00: MOUTH [place] 00 DAILY WITH Medical BREAKFAST. Branch BRAND MEDICALLY NECESSARY. NEXIUM 40 2018-0 Yes [id number] 40mg TAKE 1 U nivers mg capsule 6-25 CAPSULE BY ity of 00:00: MOUTH [place] 00 DAILY WITH Medical BREAKFAST. Branch BRAND MEDICALLY NECESSARY. NEXIUM 40 2018-0 Yes [id number] 40mg TAKE 1 U nivers mg capsule 6-25 CAPSULE BY ity of 00:00: MOUTH [place] 00 DAILY WITH Medical BREAKFAST. Branch BRAND MEDICALLY NECESSARY. NEXIUM 40 2018-0 Yes [id number] 40mg TAKE 1 U nivers mg capsule 6-25 CAPSULE BY ity of 00:00: MOUTH [place] 00 DAILY WITH Medical BREAKFAST. Branch BRAND MEDICALLY NECESSARY. NEXIUM 40 0 Yes [id number] 40mg TAKE 1 U nivers mg capsule 6-25 CAPSULE BY ity of 00:00: MOUTH [place] 00 DAILY WITH Medical BREAKFAST. Branch BRAND MEDICALLY NECESSARY. NEXIUM 40 0 Yes [id number] 40mg TAKE 1 U nivers mg capsule 6-25 CAPSULE BY ity of 00:00: MOUTH [place] 00 DAILY WITH Medical BREAKFAST. Branch BRAND MEDICALLY NECESSARY. NEXIUM 40 2018-0 Yes [id number] 40mg TAKE 1 U nivers mg capsule 6-25 CAPSULE BY ity of 00:00: MOUTH [place] 00 DAILY WITH Medical BREAKFAST. Branch BRAND MEDICALLY NECESSARY. NEXIUM 40 2018-0 Yes [id number] 40mg TAKE 1 U nivers mg capsule 6-25 CAPSULE BY ity of 00:00: MOUTH [place] 00 DAILY WITH Medical BREAKFAST. Branch BRAND MEDICALLY NECESSARY. NEXIUM 40 2018-0 Yes [id number] 40mg TAKE 1 U nivers mg capsule 6-25 CAPSULE BY ity of 00:00: MOUTH [place] 00 DAILY WITH Medical BREAKFAST. Branch BRAND MEDICALLY NECESSARY. NEXIUM 40 2018-0 Yes [id number] 40mg TAKE 1 U nivers mg capsule 6-25 CAPSULE BY ity of 00:00: MOUTH [place] 00 DAILY WITH Medical BREAKFAST. Branch BRAND MEDICALLY NECESSARY. NEXIUM 40 2018-0 Yes [id number] 40mg TAKE 1 U nivers mg capsule 6-25 CAPSULE BY ity of 00:00: MOUTH [place] 00 DAILY WITH Medical BREAKFAST. Branch BRAND MEDICALLY NECESSARY. NEXIUM 40 2019-0 Yes [id number] 40mg TAKE 1 U nivers mg capsule 6-25 CAPSULE BY ity of 00:00: MOUTH [place] 00 DAILY WITH Medical BREAKFAST. Branch BRAND MEDICALLY NECESSARY. NEXIUM 40 2019-0 Yes [id number] 40mg TAKE 1 U nivers mg capsule 6-25 CAPSULE BY ity of 00:00: MOUTH [place] 00 DAILY WITH Medical BREAKFAST. Branch BRAND MEDICALLY NECESSARY. NEXIUM 40 2018-0 Yes [id number] 40mg TAKE 1 [facility] mg capsule 6-25 CAPSULE BY ity of 00:00: MOUTH [place] 00 DAILY WITH Medical BREAKFAST. Branch BRAND MEDICALLY NECESSARY. NEXIUM 40 2018-0 Yes [id number] 40mg TAKE 1 [facility] mg capsule 6-25 CAPSULE BY ity of 00:00: MOUTH [place] 00 DAILY WITH Medical BREAKFAST. Branch BRAND MEDICALLY NECESSARY. NEXIUM 40 2018-0 Yes [id number] 40mg TAKE 1 [facility] mg capsule 6-25 CAPSULE BY ity of 00:00: MOUTH [place] 00 DAILY WITH Medical BREAKFAST. Branch BRAND MEDICALLY NECESSARY. NEXIUM 40 2018-0 Yes [id number] 40mg TAKE 1 [facility] mg capsule 6-25 CAPSULE BY ity of 00:00: MOUTH [place] 00 DAILY WITH Medical BREAKFAST. Branch BRAND MEDICALLY NECESSARY. NEXIUM 40 2018-0 Yes [id number] 40mg TAKE 1 [facility] mg capsule 6-25 CAPSULE BY ity of 00:00: MOUTH [place] 00 DAILY WITH Medical BREAKFAST. Branch BRAND MEDICALLY NECESSARY. NEXIUM 40 2018-0 Yes [id number] 40mg TAKE 1 [facility] mg capsule 6-25 CAPSULE BY ity of 00:00: MOUTH [place] 00 DAILY WITH Medical BREAKFAST. Branch BRAND MEDICALLY NECESSARY. NEXIUM 40 2019-0 Yes [id number] 40mg TAKE 1 [facility] mg capsule 6-25 CAPSULE BY ity of 00:00: MOUTH [place] 00 DAILY WITH Medical BREAKFAST. Branch BRAND MEDICALLY NECESSARY. NEXIUM 40 2019-0 Yes [id number] 40mg TAKE 1 [facility] mg capsule 6-25 CAPSULE BY ity of 00:00: MOUTH [place] 00 DAILY WITH Medical BREAKFAST. Branch BRAND MEDICALLY NECESSARY. NEXIUM 40 2018-0 Yes [id number] 40mg TAKE 1 [facility] mg capsule 6-25 CAPSULE BY it[facility] of 00:00: MOUTH [place] 00 DAILY WITH Medical BREAKFAST. Branch BRAND MEDICALLY NECESSARY. NEXIUM 40 2019-0 Yes [id number] 40mg TAKE 1 [facility] mg capsule 6-25 CAPSULE BY ity of 00:00: MOUTH [place] 00 DAILY WITH Medical BREAKFAST. Branch BRAND MEDICALLY NECESSARY. NEXIUM 40 2019-0 Yes [id number] 40mg TAKE 1 [facility] mg capsule 6-25 CAPSULE BY ity of 00:00: MOUTH [place] 00 DAILY WITH Medical BREAKFAST. Branch BRAND MEDICALLY NECESSARY. NEXIUM 40 2018-0 Yes [id number] 40mg TAKE 1 [facility] mg capsule 6-25 CAPSULE BY ity of 00:00: MOUTH [place] 00 DAILY WITH Medical BREAKFAST. Branch BRAND MEDICALLY NECESSARY. NEXIUM 40 2018-0 Yes [id number] 40mg TAKE 1 [facility] mg capsule 6-25 CAPSULE BY it[facility] of 00:00: MOUTH [place] 00 DAILY WITH Medical BREAKFAST. Branch BRAND MEDICALLY NECESSARY. NEXIUM 40 2018-0 Yes [id number] 40mg TAKE 1 [facility] mg capsule 6-25 CAPSULE BY ity of 00:00: MOUTH [place] 00 DAILY WITH Medical BREAKFAST. Branch BRAND MEDICALLY NECESSARY. NEXIUM 40 2018-0 Yes [id number] 40mg TAKE 1 [facility] mg capsule 6-25 CAPSULE BY it[facility] of 00:00: MOUTH [place] 00 DAILY WITH Medical BREAKFAST. Branch BRAND MEDICALLY NECESSARY. NEXIUM 40 2018-0 Yes [id number] 40mg TAKE 1 [facility] mg capsule 6-25 CAPSULE BY it[facility] of 00:00: MOUTH [place] 00 DAILY WITH Medical BREAKFAST. Branch BRAND MEDICALLY NECESSARY. NEXIUM 40 2018-0 Yes [id number] 40mg TAKE 1 [facility] mg capsule 6-25 CAPSULE BY ity of 00:00: MOUTH [place] 00 DAILY WITH Medical BREAKFAST. Branch BRAND MEDICALLY NECESSARY. NEXIUM 40 2018-0 Yes [id number] 40mg TAKE 1 [facility] mg capsule 6-25 CAPSULE BY ity of 00:00: MOUTH [place] 00 DAILY WITH Medical BREAKFAST. Branch BRAND MEDICALLY NECESSARY. NEXIUM 40 2018-0 Yes [id number] 40mg TAKE 1 [facility] mg capsule 6-25 CAPSULE BY it[facility] of 00:00: MOUTH [place] 00 DAILY WITH Medical BREAKFAST. Branch BRAND MEDICALLY NECESSARY. NEXIUM 40 2018-0 Yes [id number] 40mg TAKE 1 [facility] mg capsule 6-25 CAPSULE BY it[facility] of 00:00: MOUTH [place] 00 DAILY WITH Medical BREAKFAST. Branch BRAND MEDICALLY NECESSARY. NEXIUM 40 2019-0 Yes [id number] 40mg TAKE 1 [facility] mg capsule 6-25 CAPSULE BY ity of 00:00: MOUTH [place] 00 DAILY WITH Medical BREAKFAST. Branch BRAND MEDICALLY NECESSARY. NEXIUM 40 2019-0 Yes [id number] 40mg TAKE 1 [facility] mg capsule 6-25 CAPSULE BY ity of 00:00: MOUTH [place] 00 DAILY WITH Medical BREAKFAST. Branch BRAND MEDICALLY NECESSARY. NEXIUM 40 2018-0 Yes [id number] 40mg TAKE 1 [facility] mg capsule 6-25 CAPSULE BY it[facility] of 00:00: MOUTH [place] 00 DAILY WITH Medical BREAKFAST. Branch BRAND MEDICALLY NECESSARY. NEXIUM 40 2018-0 Yes [id number] 40mg TAKE 1 [facility] mg capsule 6-25 CAPSULE BY it[facility] of 00:00: MOUTH [place] 00 DAILY WITH Medical BREAKFAST. Branch BRAND MEDICALLY NECESSARY. NEXIUM 40 2018- Yes [id number] 40mg TAKE 1 [facility] mg capsule 6-25 CAPSULE BY ity of 00:00: MOUTH [place] 00 DAILY WITH Medical BREAKFAST. Branch BRAND MEDICALLY NECESSARY. NEXIUM 40 2018-0 Yes [id number] 40mg TAKE 1 [facility] mg capsule 6-25 CAPSULE BY ity of 00:00: MOUTH [place] 00 DAILY WITH Medical BREAKFAST. Branch BRAND MEDICALLY NECESSARY. NEXIUM 40 2018-0 Yes [id number] 40mg TAKE 1 [facility] mg capsule 6-25 CAPSULE BY it[facility] of 00:00: MOUTH [place] 00 DAILY WITH Medical BREAKFAST. Branch BRAND MEDICALLY NECESSARY. NEXIUM 40 2018-0 Yes [id number] 40mg TAKE 1 [facility] mg capsule 6-25 CAPSULE BY it[facility] of 00:00: MOUTH [place] 00 DAILY WITH Medical BREAKFAST. Branch BRAND MEDICALLY NECESSARY. NEXIUM 40 2018-0 Yes [id number] 40mg TAKE 1 [facility] mg capsule 6-25 CAPSULE BY ity of 00:00: MOUTH [place] 00 DAILY WITH Medical BREAKFAST. Branch BRAND MEDICALLY NECESSARY. NEXIUM 40 2018-0 Yes [id number] 40mg TAKE 1 [facility] mg capsule 6-25 CAPSULE BY ity of 00:00: MOUTH [place] 00 DAILY WITH Medical BREAKFAST. Branch BRAND MEDICALLY NECESSARY. NEXIUM 40 2019-0 Yes [id number] 40mg TAKE 1 [facility] mg capsule 6-25 CAPSULE BY ity of 00:00: MOUTH [place] 00 DAILY WITH Medical BREAKFAST. Branch BRAND MEDICALLY NECESSARY. NEXIUM 40 2019 2020- No [id number] 40mg TAKE 1 [facility] mg capsule 6-25 07-28 CAPSULE BY it y of 00:00: 00:00 MOUTH [place] 00 :00 DAILY WITH Medical BREAKFAST. Branch BRAND MEDICALLY NECESSARY. TRIAMTERENE Yes [id number] TAKE 2 [facility] -HYDROCHLOR 5-30 TABLETS BY it y of OTHIAZID 00:00: MOUTH [place] 37.5-25 mg 00 DAILY. Medical tablet Branch TRIAMTERENE Yes [id number] TAKE 2 [facility] -HYDROCHLOR 5-30 TABLETS BY it y of OTHIAZID 00:00: MOUTH [place] 37.5-25 mg 00 DAILY. Medical tablet Branch TRIAMTERENE Yes [id number] TAKE 2 [facility] -HYDROCHLOR 5-30 TABLETS BY it y of OTHIAZID 00:00: MOUTH [place] 37.5-25 mg 00 DAILY. Medical tablet Branch TRIAMTERENE Yes [id number] TAKE 2 [facility] -HYDROCHLOR 5-30 TABLETS BY it y of OTHIAZID 00:00: MOUTH [place] 37.5-25 mg 00 DAILY. Medical tablet Branch TRIAMTERENE Yes [id number] TAKE 2 [facility] -HYDROCHLOR 5-30 TABLETS BY it y of OTHIAZID 00:00: MOUTH [place] 37.5-25 mg 00 DAILY. Medical tablet Branch TRIAMTERENE Yes [id number] TAKE 2 [facility] -HYDROCHLOR 5-30 TABLETS BY it y of OTHIAZID 00:00: MOUTH [place] 37.5-25 mg 00 DAILY. Medical tablet Branch TRIAMTERENE Yes [id number] TAKE 2 [facility] -HYDROCHLOR 5-30 TABLETS BY it y of OTHIAZID 00:00: MOUTH [place] 37.5-25 mg 00 DAILY. Medical tablet Branch TRIAMTERENE Yes [id number] TAKE 2 [facility] -HYDROCHLOR 5-30 TABLETS BY it y of OTHIAZID 00:00: MOUTH [place] 37.5-25 mg 00 DAILY. Medical tablet Branch TRIAMTERENE Yes [id number] TAKE 2 [facility] -HYDROCHLOR 5-30 TABLETS BY it y of OTHIAZID 00:00: MOUTH [place] 37.5-25 mg 00 DAILY. Medical tablet Branch TRIAMTERENE Yes [id number] TAKE 2 [facility] -HYDROCHLOR 5-30 TABLETS BY it y of OTHIAZID 00:00: MOUTH [place] 37.5-25 mg 00 DAILY. Medical tablet Branch TRIAMTERENE 2019-0 Yes [id number] TAKE 2 [facility] -HYDROCHLOR 5-30 TABLETS BY it y of OTHIAZID 00:00: MOUTH [place] 37.5-25 mg 00 DAILY. Medical tablet Branch TRIAMTERENE 2018-0 Yes [id number] TAKE 2 [facility] -HYDROCHLOR 5-30 TABLETS BY it y of OTHIAZID 00:00: MOUTH [place] 37.5-25 mg 00 DAILY. Medical tablet Branch TRIAMTERENE 2018-0 Yes [id number] TAKE 2 [facility] -HYDROCHLOR 5-30 TABLETS BY it y of OTHIAZID 00:00: MOUTH [place] 37.5-25 mg 00 DAILY. Medical tablet Branch LEVOTHYROXI 2019-0 Yes [id number] TAKE 1 [facility] [place] 25 mcg 5-13 TABLET BY ity o f tablet 00:00: MOUTH [place] 00 EVERY Medical MORNING. Branch LEVOTHYROXI 2019-0 Yes [id number] TAKE 1 [facility] NE 25 mcg 5-13 TABLET BY ity o f tablet 00:00: MOUTH [place] 00 EVERY Medical MORNING. Branch LEVOTHYROXI 2019-0 Yes [id number] TAKE 1 [facility] [place] 25 mcg 5-13 TABLET BY ity o f tablet 00:00: MOUTH [place] 00 EVERY Medical MORNING. Branch LEVOTHYROXI 2019-0 Yes [id number] TAKE 1 [facility] [place] 25 mcg 5-13 TABLET BY ity o f tablet 00:00: MOUTH [place] 00 EVERY Medical MORNING. Branch LEVOTHYROXI 2019-0 Yes [id number] TAKE 1 [facility] [place] 25 mcg 5-13 TABLET BY ity o f tablet 00:00: MOUTH [place] 00 EVERY Medical MORNING. Branch LEVOTHYROXI 2019-0 Yes [id number] TAKE 1 [facility] [place] 25 mcg 5-13 TABLET BY ity o f tablet 00:00: MOUTH [place] 00 EVERY Medical MORNING. Branch LEVOTHYROXI 2019-0 Yes [id number] TAKE 1 [facility] [place] 25 mcg 5-13 TABLET BY ity o f tablet 00:00: MOUTH [place] 00 EVERY Medical MORNING. Branch LEVOTHYROXI 2019-0 Yes [id number] TAKE 1 [facility] [place] 25 mcg 5-13 TABLET BY ity o f tablet 00:00: MOUTH [place] 00 EVERY Medical MORNING. Branch LEVOTHYROXI 2019-0 Yes [id number] TAKE 1 [facility] [place] 25 mcg 5-13 TABLET BY ity o f tablet 00:00: MOUTH [place] 00 EVERY Medical MORNING. Branch LEVOTHYROXI 2019-0 Yes [id number] TAKE 1 [facility] [place] 25 mcg 5-13 TABLET BY ity o f tablet 00:00: MOUTH [place] 00 EVERY Medical MORNING. Branch LEVOTHYROXI 2019-0 Yes [id number] TAKE 1 [facility] [place] 25 mcg 5-13 TABLET BY ity o f tablet 00:00: MOUTH [place] 00 EVERY Medical MORNING. Branch LEVOTHYROXI 2019-0 Yes [id number] TAKE 1 [facility] [place] 25 mcg 5-13 TABLET BY ity o f tablet 00:00: MOUTH [place] 00 EVERY Medical MORNING. Branch LEVOTHYROXI 2019-0 Yes [id number] TAKE 1 [facility] [place] 25 mcg 5-13 TABLET BY ity o f tablet 00:00: MOUTH [place] 00 EVERY Medical MORNING. Branch LEVOTHYROXI 2019-0 Yes [id number] TAKE 1 [facility] [place] 25 mcg 5-13 TABLET BY ity o f tablet 00:00: MOUTH [place] 00 EVERY Medical MORNING. Branch LEVOTHYROXI 2019-0 Yes [id number] TAKE 1 [facility] 25 mcg 5-13 TABLET BY ity o f tablet 00:00: MOUTH [place] 00 EVERY Medical MORNING. Branch LEVOTHYROXI 2019-0 Yes [id number] TAKE 1 [facility] 25 mcg 5-13 TABLET BY ity o f tablet 00:00: MOUTH [place] 00 EVERY Medical MORNING. Branch LEVOTHYROXI 2019-0 Yes [id number] TAKE 1 [facility] 25 mcg 5-13 TABLET BY ity o f tablet 00:00: MOUTH [place] 00 EVERY Medical MORNING. Branch LEVOTHYROXI 2019-0 Yes [id number] TAKE 1 [facility] [place] 25 mcg 5-13 TABLET BY ity o f tablet 00:00: MOUTH [place] 00 EVERY Medical MORNING. Branch LEVOTHYROXI 2019-0 Yes [id number] TAKE 1 [facility] 25 mcg 5-13 TABLET BY ity o f tablet 00:00: MOUTH [place] 00 EVERY Medical MORNING. Branch LEVOTHYROXI 2019-0 Yes [id number] TAKE 1 [facility] 25 mcg 5-13 TABLET BY ity o f tablet 00:00: MOUTH [place] 00 EVERY Medical MORNING. Branch LEVOTHYROXI 2019-0 Yes [id number] TAKE 1 [facility] 25 mcg 5-13 TABLET BY ity o f tablet 00:00: MOUTH [place] 00 EVERY Medical MORNING. Branch LEVOTHYROXI 2019-0 Yes [id number] TAKE 1 [facility] [place] 25 mcg 5-13 TABLET BY ity o f tablet 00:00: MOUTH [place] 00 EVERY Medical MORNING. Branch LEVOTHYROXI 2019-0 Yes [id number] TAKE 1 [facility] 25 mcg 5-13 TABLET BY ity o f tablet 00:00: MOUTH [place] 00 EVERY Medical MORNING. Branch LEVOTHYROXI 2019-0 Yes [id number] TAKE 1 [facility] [place] 25 mcg 5-13 TABLET BY ity o f tablet 00:00: MOUTH [place] 00 EVERY Medical MORNING. Branch LEVOTHYROXI 2019-0 Yes [id number] TAKE 1 [facility] 25 mcg 5-13 TABLET BY ity o f tablet 00:00: MOUTH [place] 00 EVERY Medical MORNING. Branch LEVOTHYROXI 2019-0 Yes [id number] TAKE 1 [facility] 25 mcg 5-13 TABLET BY ity o f tablet 00:00: MOUTH [place] 00 EVERY Medical MORNING. Branch LEVOTHYROXI 2019-0 Yes [id number] TAKE 1 [facility] [place] 25 mcg 5-13 TABLET BY it[facility] o f tablet 00:00: MOUTH [place] 00 EVERY Medical MORNING. Branch LEVOTHYROXI 2019-0 Yes [id number] TAKE 1 [facility] [place] 25 mcg 5-13 TABLET BY ity o f tablet 00:00: MOUTH [place] 00 EVERY Medical MORNING. Branch LEVOTHYROXI 2019-0 2020- No [id number] TAKE 1 [facility] NE 25 mcg 5-13 03-24 TABLET BY ity of tablet 00:00: 00:00 MOUTH [place] 00 :00 EVERY Medical MORNING. Branch traZODONE 2019-0 Yes [id number] 100mg Take 1 [facility] 100 mg 4-11 tablet by ity of tablet 00:00: mouth at [place] 00 bedtime. Medical For Branch insomnia. traZODONE 2019-0 Yes [id number] 100mg Take 1 [facility] 100 mg 4-11 tablet by ity of tablet 00:00: mouth at [place] 00 bedtime. Medical For Branch insomnia. traZODONE 2019-0 Yes [id number] 100mg Take 1 [facility] 100 mg 4-11 tablet by ity of tablet 00:00: mouth at [place] 00 bedtime. Medical For Branch insomnia. traZODONE 2019-0 Yes [id number] 100mg Take 1 [facility] 100 mg 4-11 tablet by ity of tablet 00:00: mouth at [place] 00 bedtime. Medical For Branch insomnia. traZODONE 2019-0 Yes [id number] 100mg Take 1 [facility] 100 mg 4-11 tablet by ity of tablet 00:00: mouth at [place] [address] bedtime. Medical For Branch insomnia. traZODONE 2019-0 Yes [id number] 100mg Take 1 [facility] 100 mg 4-11 tablet by ity of tablet 00:00: mouth at [place] [address] bedtime. Medical For Branch insomnia. traZODONE 2019-0 Yes [id number] 100mg Take 1 [facility] 100 mg 4-11 tablet by it[facility] of tablet 00:00: mouth at [place] 00 bedtime. Medical For Branch insomnia. traZODONE 2019-0 Yes [id number] 100mg Take 1 [facility] 100 mg 4-11 tablet by ity of tablet 00:00: mouth at [place] 00 bedtime. Medical For Branch insomnia. traZODONE 2019-0 Yes [id number] 100mg Take 1 [facility] 100 mg 4-11 tablet by ity of tablet 00:00: mouth at [place] [address] bedtime. Medical For Branch insomnia. traZODONE 2019-0 Yes [id number] 100mg Take 1 [facility] 100 mg 4-11 tablet by ity of tablet 00:00: mouth at [place] [address] bedtime. Medical For Branch insomnia. traZODONE 2019-0 Yes [id number] 100mg Take 1 [facility] 100 mg 4-11 tablet by ity of tablet 00:00: mouth at [place] [address] bedtime. Medical For Branch insomnia. traZODONE 2019-0 Yes [id number] 100mg Take 1 [facility] 100 mg 4-11 tablet by ity of tablet 00:00: mouth at [place] [address] bedtime. Medical For Branch insomnia. traZODONE 2019-0 Yes [id number] 100mg Take 1 [facility] 100 mg 4-11 tablet by ity of tablet 00:00: mouth at [place] [address] bedtime. Medical For Branch insomnia. metformin 2019-0 Yes [id number] 500mg Take 1 [facility] ER 500 mg 4-09 tablet by ity o f 24 hr 00:00: mouth [place] tablet 00 daily with Medical breakfast. Branch metformin 2018-0 Yes [id number] 500mg Take 1 [facility] ER 500 mg 4-09 tablet by ity o f 24 hr 00:00: mouth [place] tablet 00 daily with Medical breakfast. Branch metformin 2019-0 Yes [id number] 500mg Take 1 [facility] ER 500 mg 4-09 tablet by ity o f 24 hr 00:00: mouth [place] tablet 00 daily with Medical breakfast. Branch metformin 2018-0 Yes [id number] 500mg Take 1 [facility] ER 500 mg 4-09 tablet by ity o f 24 hr 00:00: mouth [place] tablet 00 daily with Medical breakfast. Branch metformin 2018-0 Yes [id number] 500mg Take 1 [facility] ER 500 mg 4-09 tablet by ity o f 24 hr 00:00: mouth [place] tablet 00 daily with Medical breakfast. Branch metformin 2018- Yes [id number] 500mg Take 1 [facility] ER 500 mg 4-09 tablet by ity o f 24 hr 00:00: mouth [place] tablet 00 daily with Medical breakfast. Branch metformin 2018- Yes [id number] 500mg Take 1 [facility] ER 500 mg 4-09 tablet by ity o f 24 hr 00:00: mouth [place] tablet 00 daily with Medical breakfast. Branch metformin 2018- Yes [id number] 500mg Take 1 [facility] ER 500 mg 4-09 tablet by ity o f 24 hr 00:00: mouth [place] tablet 00 daily with Medical breakfast. Branch metformin Yes [id number] 500mg Take 1 [facility] ER 500 mg 4-09 tablet by ity o f 24 hr 00:00: mouth [place] tablet 00 daily with Medical breakfast. Branch metformin 2018-0 Yes [id number] 500mg Take 1 [facility] ER 500 mg 4-09 tablet by ity o f 24 hr 00:00: mouth [place] tablet 00 daily with Medical breakfast. Branch metformin 2018-0 Yes [id number] 500mg Take 1 [facility] ER 500 mg 4-09 tablet by ity o f 24 hr 00:00: mouth [place] tablet 00 daily with Medical breakfast. Branch metformin 0 Yes [id number] 500mg Take 1 [facility] ER 500 mg 4-09 tablet by ity o f 24 hr 00:00: mouth [place] tablet 00 daily with Medical breakfast. Branch metformin 2018-0 Yes [id number] 500mg Take 1 [facility] ER 500 mg 4-09 tablet by ity o f 24 hr 00:00: mouth [place] tablet 00 daily with Medical breakfast. Branch ciclopirox 2018- Yes [id number] Apply to [facility] 8 % 3-28 area(s) at ity of [facility] 00:00: bedtime. [place] 00 Apply to Medical Nails. Branch ciclopirox 2019-0 Yes [id number] Apply to [facility] 8 % 3-28 area(s) at ity of solution 00:00: bedtime. [place] 00 Apply to Medical Nails. Branch ciclopirox 2019-0 Yes [id number] Apply to [facility] 8 % 3-28 area(s) at ity of solution 00:00: bedtime. [place] 00 Apply to Medical Nails. Branch ciclopirox 2019-0 Yes [id number] Apply to [facility] 8 % 3-28 area(s) at ity of solution 00:00: bedtime. [place] 00 Apply to Medical Nails. Branch ciclopirox 2019-0 Yes [id number] Apply to [facility] 8 % 3-28 area(s) at ity of solution 00:00: bedtime. [place] 00 Apply to Medical Nails. Branch ciclopirox 2019-0 Yes [id number] Apply to [facility] 8 % 3-28 area(s) at ity of solution 00:00: bedtime. [place] 00 Apply to Medical Nails. Branch ciclopirox 2019-0 Yes [id number] Apply to [facility] 8 % 3-28 area(s) at ity of solution 00:00: bedtime. [place] 00 Apply to Medical Nails. Branch ciclopirox 2019-0 Yes [id number] Apply to [facility] 8 % 3-28 area(s) at ity of solution 00:00: bedtime. [place] 00 Apply to Medical Nails. Branch ciclopirox 2019-0 Yes [id number] Apply to [facility] 8 % 3-28 area(s) at ity of solution 00:00: bedtime. [place] 00 Apply to Medical Nails. Branch ciclopirox 2019-0 Yes [id number] Apply to [facility] 8 % 3-28 area(s) at ity of solution 00:00: bedtime. [place] 00 Apply to Medical Nails. Branch ciclopirox 2019-0 Yes [id number] Apply to [facility] 8 % 3-28 area(s) at ity of solution 00:00: bedtime. [place] 00 Apply to Medical Nails. Branch ciclopirox 2019-0 Yes [id number] Apply to [facility] 8 % 3-28 area(s) at ity of solution 00:00: bedtime. [place] 00 Apply to Medical Nails. Branch ciclopirox 2019-0 Yes [id number] Apply to [facility] 8 % 3-28 area(s) at ity of solution 00:00: bedtime. [place] 00 Apply to Medical Nails. Branch ciclopirox 2019-0 Yes [id number] Apply to [facility] 8 % 3-28 area(s) at ity of solution 00:00: bedtime. [place] 00 Apply to Medical Nails. Branch ciclopirox 2019-0 Yes [id number] Apply to [facility] 8 % 3-28 area(s) at ity of solution 00:00: bedtime. [place] 00 Apply to Medical Nails. Branch ciclopirox 2019-0 Yes [id number] Apply to [facility] 8 % 3-28 area(s) at ity of solution 00:00: bedtime. [place] 00 Apply to Medical Nails. Branch ciclopirox 2019-0 Yes [id number] Apply to [facility] 8 % 3-28 area(s) at ity of solution 00:00: bedtime. [place] 00 Apply to Medical Nails. Branch ciclopirox 2019-0 Yes [id number] Apply to [facility] 8 % 3-28 area(s) at ity of solution 00:00: bedtime. [place] 00 Apply to Medical Nails. Branch ciclopirox 2019-0 Yes [id number] Apply to [facility] 8 % 3-28 area(s) at ity of solution 00:00: bedtime. [place] 00 Apply to Medical Nails. Branch ciclopirox 2019-0 Yes [id number] Apply to [facility] 8 % 3-28 area(s) at ity of solution 00:00: bedtime. [place] 00 Apply to Medical Nails. Branch ciclopirox 2019-0 Yes [id number] Apply to [facility] 8 % 3-28 area(s) at ity of solution 00:00: bedtime. [place] 00 Apply to Medical Nails. Branch ciclopirox 2019-0 Yes [id number] Apply to [facility] 8 % 3-28 area(s) at ity of solution 00:00: bedtime. [place] 00 Apply to Medical Nails. Branch ciclopirox 2019-0 Yes [id number] Apply to [facility] 8 % 3-28 area(s) at ity of solution 00:00: bedtime. [place] 00 Apply to Medical Nails. Branch ciclopirox 2019-0 Yes [id number] Apply to [facility] 8 % 3-28 area(s) at ity of solution 00:00: bedtime. [place] 00 Apply to Medical Nails. Branch ciclopirox 2019-0 Yes [id number] Apply to [facility] 8 % 3-28 area(s) at ity of solution 00:00: bedtime. [place] 00 Apply to Medical Nails. Branch ciclopirox 2019-0 Yes [id number] Apply to [facility] 8 % 3-28 area(s) at ity of solution 00:00: bedtime. [place] 00 Apply to Medical Nails. Branch ciclopirox 2019-0 Yes [id number] Apply to [facility] 8 % 3-28 area(s) at ity of solution 00:00: bedtime. [place] 00 Apply to Medical Nails. Branch ciclopirox 2019-0 Yes [id number] Apply to [facility] 8 % 3-28 area(s) at ity of solution 00:00: bedtime. [place] 00 Apply to Medical Nails. Branch ciclopirox 2019-0 Yes [id number] Apply to [facility] 8 % 3-28 area(s) at ity of solution 00:00: bedtime. [place] 00 Apply to Medical Nails. Branch ciclopirox 2019-0 Yes [id number] Apply to [facility] 8 % 3-28 area(s) at ity of solution 00:00: bedtime. [place] 00 Apply to Medical Nails. Branch ciclopirox 2019-0 Yes [id number] Apply to [facility] 8 % 3-28 area(s) at ity of solution 00:00: bedtime. [place] 00 Apply to Medical Nails. Branch ciclopirox 2019-0 Yes [id number] Apply to [facility] 8 % 3-28 area(s) at ity of solution 00:00: bedtime. [place] 00 Apply to Medical Nails. Branch ciclopirox 2019-0 Yes [id number] Apply to [facility] 8 % 3-28 area(s) at ity of solution 00:00: bedtime. [place] 00 Apply to Medical Nails. Branch ciclopirox 2019-0 Yes [id number] Apply to [facility] 8 % 3-28 area(s) at ity of solution 00:00: bedtime. [place] 00 Apply to Medical Nails. Branch ciclopirox 2019-0 Yes [id number] Apply to [facility] 8 % 3-28 area(s) at ity of solution 00:00: bedtime. [place] 00 Apply to Medical Nails. Branch ciclopirox 2019-0 Yes [id number] Apply to [facility] 8 % 3-28 area(s) at ity of solution 00:00: bedtime. [place] 00 Apply to Medical Nails. Branch ciclopirox 2019-0 Yes [id number] Apply to [facility] 8 % 3-28 area(s) at ity of solution 00:00: bedtime. [place] 00 Apply to Medical Nails. Branch ciclopirox 2019-0 Yes [id number] Apply to [facility] 8 % 3-28 area(s) at ity of solution 00:00: bedtime. [place] 00 Apply to Medical Nails. Branch ciclopirox 2019-0 Yes [id number] Apply to [facility] 8 % 3-28 area(s) at ity of solution 00:00: bedtime. [place] 00 Apply to Medical Nails. Branch ciclopirox 2019-0 Yes [id number] Apply to [facility] 8 % 3-28 area(s) at ity of solution 00:00: bedtime. [place] 00 Apply to Medical Nails. Branch ciclopirox 2019-0 Yes [id number] Apply to [facility] 8 % 3-28 area(s) at ity of solution 00:00: bedtime. [place] 00 Apply to Medical Nails. Branch ciclopirox 2019-0 Yes [id number] Apply to [facility] 8 % 3-28 area(s) at ity of solution 00:00: bedtime. [place] 00 Apply to Medical Nails. Branch ciclopirox 2019-0 Yes [id number] Apply to [facility] 8 % 3-28 area(s) at ity of solution 00:00: bedtime. [place] 00 Apply to Medical Nails. Branch ciclopirox 2019-0 Yes [id number] Apply to [facility] 8 % 3-28 area(s) at ity of solution 00:00: bedtime. [place] 00 Apply to Medical Nails. Branch ciclopirox 2019-0 Yes [id number] Apply to [facility] 8 % 3-28 area(s) at ity of solution 00:00: bedtime. [place] 00 Apply to Medical Nails. Branch ciclopirox 2019-0 Yes [id number] Apply to [facility] 8 % 3-28 area(s) at ity of solution 00:00: bedtime. [place] 00 Apply to Medical Nails. Branch ciclopirox 2019-0 Yes [id number] Apply to [facility] 8 % 3-28 area(s) at ity of solution 00:00: bedtime. [place] 00 Apply to Medical Nails. Branch ciclopirox 2019-0 Yes [id number] Apply to [facility] 8 % 3-28 area(s) at ity of solution 00:00: bedtime. [place] 00 Apply to Medical Nails. Branch ciclopirox 2019-0 Yes [id number] Apply to [facility] 8 % 3-28 area(s) at ity of solution 00:00: bedtime. [place] 00 Apply to Medical Nails. Branch ciclopirox 2019-0 Yes [id number] Apply to [facility] 8 % 3-28 area(s) at ity of solution 00:00: bedtime. [place] 00 Apply to Medical Nails. Branch ciclopirox 2019-0 Yes [id number] Apply to [facility] 8 % 3-28 area(s) at ity of solution 00:00: bedtime. [place] 00 Apply to Medical Nails. Branch ciclopirox 2019-0 Yes [id number] Apply to [facility] 8 % 3-28 area(s) at ity of solution 00:00: bedtime. [place] 00 Apply to Medical Nails. Branch ciclopirox 2019-0 Yes [id number] Apply to [facility] 8 % 3-28 area(s) at ity of solution 00:00: bedtime. [place] 00 Apply to Medical Nails. Branch ciclopirox 2019-0 Yes [id number] Apply to [facility] 8 % 3-28 area(s) at ity of solution 00:00: bedtime. [place] 00 Apply to Medical Nails. Branch ciclopirox 2019-0 Yes [id number] Apply to [facility] 8 % 3-28 area(s) at ity of solution 00:00: bedtime. [place] 00 Apply to Medical Nails. Branch ciclopirox 2019-0 Yes [id number] Apply to [facility] 8 % 3-28 area(s) at ity of solution 00:00: bedtime. [place] 00 Apply to Medical Nails. Branch ciclopirox 2019-0 Yes [id number] Apply to [facility] 8 % 3-28 area(s) at ity of solution 00:00: bedtime. [place] 00 Apply to Medical Nails. Branch ciclopirox 2019-0 Yes [id number] Apply to [facility] 8 % 3-28 area(s) at ity of solution 00:00: bedtime. [place] 00 Apply to Medical Nails. Branch ciclopirox 2019-0 Yes [id number] Apply to [facility] 8 % 3-28 area(s) at ity of solution 00:00: bedtime. [place] 00 Apply to [facility] ciclopirox 2019-0 Yes [id number] Apply to [facility] 8 % 3-28 area(s) at ity of solution 00:00: bedtime. [place] 00 Apply to [facility] ciclopirox 2019-0 Yes [id number] Apply to [facility] 8 % 3-28 area(s) at ity of solution 00:00: bedtime. [place] 00 Apply to [facility] ciclopirox 2019-0 Yes [id number] Apply to [facility] 8 % 3-28 area(s) at ity of solution 00:00: bedtime. [place] 00 Apply to [facility] ciclopirox 2019-0 Yes [id number] Apply to [facility] 8 % 3-28 area(s) at ity of solution 00:00: bedtime. [place] 00 Apply to [facility] ciclopirox 2019-0 Yes [id number] Apply to [facility] 8 % 3-28 area(s) at ity of solution 00:00: bedtime. [place] 00 Apply to [facility] ciclopirox 2019-0 Yes [id number] Apply to [facility] 8 % 3-28 area(s) at ity of solution 00:00: bedtime. [place] 00 Apply to [facility] ciclopirox 2019-0 Yes [id number] Apply to [facility] 8 % 3-28 area(s) at ity of solution 00:00: bedtime. [place] 00 Apply to [facility] ciclopirox 2019-0 Yes [id number] Apply to [facility] 8 % 3-28 area(s) at ity of solution 00:00: bedtime. [place] 00 Apply to [facility] ciclopirox 2019-0 Yes [id number] Apply to [facility] 8 % 3-28 area(s) at ity of solution 00:00: bedtime. [place] 00 Apply to [facility] ciclopirox 2019-0 Yes [id number] Apply to [facility] 8 % 3-28 area(s) at ity of solution 00:00: bedtime. [place] 00 Apply to [facility] ciclopirox 2019-0 Yes [id number] Apply to [facility] 8 % 3-28 area(s) at ity of solution 00:00: bedtime. [place] 00 Apply to [facility] ciclopirox 2019-0 Yes [id number] Apply to [facility] 8 % 3-28 area(s) at ity of solution 00:00: bedtime. [place] 00 Apply to [facility] ciclopirox 2019-0 Yes [id number] Apply to [facility] 8 % 3-28 area(s) at ity of solution 00:00: bedtime. [place] 00 Apply to [facility] ciclopirox 2019-0 Yes [id number] Apply to [facility] 8 % 3-28 area(s) at ity of solution 00:00: bedtime. [place] 00 Apply to [facility] ciclopirox 2019-0 Yes [id number] Apply to [facility] 8 % 3-28 area(s) at ity of solution 00:00: bedtime. [place] 00 Apply to [facility] ciclopirox 2019-0 Yes [id number] Apply to [facility] 8 % 3-28 area(s) at ity of solution 00:00: bedtime. [place] 00 Apply to [facility] ciclopirox 2019-0 Yes [id number] Apply to [facility] 8 % 3-28 area(s) at ity of solution 00:00: bedtime. [place] 00 Apply to [facility] ciclopirox 2019-0 Yes [id number] Apply to [facility] 8 % 3-28 area(s) at ity of solution 00:00: bedtime. [place] 00 Apply to [facility] ciclopirox 2019-0 Yes [id number] Apply to [facility] 8 % 3-28 area(s) at ity of solution 00:00: bedtime. [place] 00 [facility] to [facility] ciclopirox 2019-0 Yes [id number] Apply to [facility] 8 % 3-28 area(s) at ity of solution 00:00: bedtime. [place] 00 Apply to [facility] ciclopirox 2019-0 Yes [id number] Apply to [facility] 8 % 3-28 area(s) at ity of solution 00:00: bedtime. [place] 00 Apply to [facility] ciclopirox 2019-0 Yes [id number] Apply to [facility] 8 % 3-28 area(s) at ity of solution 00:00: bedtime. [place] 00 Apply to [facility] ciclopirox 2019-0 Yes [id number] Apply to [facility] 8 % 3-28 area(s) at ity of solution 00:00: bedtime. [place] 00 Apply to [facility] ciclopirox 2019-0 Yes [id number] Apply to [facility] 8 % 3-28 area(s) at ity of solution 00:00: bedtime. [place] 00 Apply to [facility] ciclopirox 2019-0 Yes [id number] Apply to [facility] 8 % 3-28 area(s) at ity of solution 00:00: bedtime. [place] 00 Apply to [facility] ciclopirox 2019-0 Yes [id number] Apply to [facility] 8 % 3-28 area(s) at ity of solution 00:00: bedtime. [place] 00 [facility] to [facility] ciclopirox 2019-0 Yes [id number] Apply to [facility] 8 % 3-28 area(s) at ity of solution 00:00: bedtime. [place] 00 Apply to [facility] ciclopirox 2019-0 Yes [id number] Apply to [facility] 8 % 3-28 area(s) at ity of solution 00:00: bedtime. [place] 00 Apply to [facility] ciclopirox 2019-0 Yes [id number] Apply to [facility] 8 % 3-28 area(s) at ity of solution 00:00: bedtime. [place] 00 Apply to [facility] ciclopirox 2019-0 Yes [id number] Apply to [facility] 8 % 3-28 area(s) at ity of solution 00:00: bedtime. [place] 00 Apply to [facility] ciclopirox 2019-0 Yes [id number] Apply to [facility] 8 % 3-28 area(s) at ity of solution 00:00: bedtime. [place] 00 Apply to [facility] ciclopirox 2019-0 Yes [id number] Apply to [facility] 8 % 3-28 area(s) at ity of solution 00:00: bedtime. [place] 00 [facility] to [facility] ciclopirox 2019-0 Yes [id number] Apply to [facility] 8 % 3-28 area(s) at ity of solution 00:00: bedtime. [place] 00 Apply to [facility] ciclopirox 2019-0 Yes [id number] Apply to [facility] 8 % 3-28 area(s) at ity of solution 00:00: bedtime. [place] 00 Apply to [facility] ciclopirox 2019-0 Yes [id number] Apply to [facility] 8 % 3-28 area(s) at ity of solution 00:00: bedtime. [place] 00 Apply to [facility] ciclopirox 2019-0 Yes [id number] Apply to [facility] 8 % 3-28 area(s) at ity of solution 00:00: bedtime. [place] 00 Apply to [facility] ciclopirox 2019-0 Yes [id number] Apply to [facility] 8 % 3-28 area(s) at ity of solution 00:00: bedtime. [place] 00 Apply to [facility] ciclopirox 2019-0 Yes [id number] Apply to [facility] 8 % 3-28 area(s) at ity of solution 00:00: bedtime. [place] 00 Apply to [facility] ciclopirox 2019-0 Yes [id number] Apply to [facility] 8 % 3-28 area(s) at ity of solution 00:00: bedtime. [place] 00 Apply to [facility] ciclopirox 2019-0 Yes [id number] Apply to [facility] 8 % 3-28 area(s) at ity of solution 00:00: bedtime. [place] 00 Apply to [facility] ciclopirox 2019-0 Yes [id number] Apply to [facility] 8 % 3-28 area(s) at ity of solution 00:00: bedtime. [place] 00 Apply to [facility] ciclopirox 2019-0 Yes [id number] Apply to [facility] 8 % 3-28 area(s) at ity of solution 00:00: bedtime. [place] 00 Apply to [facility] ciclopirox 2019-0 Yes [id number] Apply to [facility] 8 % 3-28 area(s) at ity of solution 00:00: bedtime. [place] 00 [facility] to [facility] ciclopirox 2019-0 Yes [id number] Apply to [facility] 8 % 3-28 area(s) at ity of solution 00:00: bedtime. [place] 00 Apply to [facility] ciclopirox 2019-0 Yes [id number] Apply to [facility] 8 % 3-28 area(s) at ity of solution 00:00: bedtime. [place] 00 Apply to [facility] ciclopirox 2019-0 Yes [id number] Apply to [facility] 8 % 3-28 area(s) at ity of solution 00:00: bedtime. [place] 00 Apply to [facility] ciclopirox 2019-0 Yes [id number] Apply to [facility] 8 % 3-28 area(s) at ity of solution 00:00: bedtime. [place] 00 Apply to [facility] ciclopirox 2019-0 Yes [id number] Apply to [facility] 8 % 3-28 area(s) at ity of solution 00:00: bedtime. [place] 00 Apply to [facility] ciclopirox 2019-0 Yes [id number] Apply to [facility] 8 % 3-28 area(s) at ity of solution 00:00: bedtime. [place] 00 Apply to [facility] ciclopirox 2019-0 Yes [id number] Apply to [facility] 8 % 3-28 area(s) at ity of solution 00:00: bedtime. [place] 00 Apply to [facility] ciclopirox 2019-0 Yes [id number] Apply to [facility] 8 % 3-28 area(s) at ity of solution 00:00: bedtime. [place] 00 [facility] to [facility] ciclopirox 2019-0 Yes [id number] Apply to [facility] 8 % 3-28 area(s) at ity of solution 00:00: bedtime. [place] 00 Apply to [facility] ciclopirox 2019-0 Yes [id number] Apply to [facility] 8 % 3-28 area(s) at ity of solution 00:00: bedtime. [place] 00 Apply to [facility] ciclopirox 2019-0 Yes [id number] Apply to [facility] 8 % 3-28 area(s) at ity of solution 00:00: bedtime. [place] 00 Apply to [facility] ciclopirox 2019-0 Yes [id number] Apply to [facility] 8 % 3-28 area(s) at ity of solution 00:00: bedtime. [place] 00 Apply to [facility] ciclopirox 2019-0 Yes [id number] Apply to [facility] 8 % 3-28 area(s) at ity of solution 00:00: bedtime. [place] 00 Apply to [facility] ciclopirox 2019-0 Yes [id number] Apply to [facility] 8 % 3-28 area(s) at ity of solution 00:00: bedtime. [place] 00 Apply to [facility] ciclopirox 2019-0 Yes [id number] Apply to [facility] 8 % 3-28 area(s) at ity of solution 00:00: bedtime. [place] 00 [facility] to [facility] ciclopirox 2019-0 Yes [id number] Apply to [facility] 8 % 3-28 area(s) at ity of solution 00:00: bedtime. [place] 00 Apply to [facility] ciclopirox 2019-0 Yes [id number] Apply to [facility] 8 % 3-28 area(s) at ity of solution 00:00: bedtime. [place] 00 Apply to [facility] ciclopirox 2019-0 Yes [id number] Apply to [facility] 8 % 3-28 area(s) at ity of solution 00:00: bedtime. [place] 00 Apply to [facility] ciclopirox 2019-0 Yes [id number] Apply to [facility] 8 % 3-28 area(s) at ity of solution 00:00: bedtime. [place] 00 Apply to [facility] ciclopirox 2019-0 Yes [id number] Apply to [facility] 8 % 3-28 area(s) at ity of solution 00:00: bedtime. [place] 00 Apply to [facility] ciclopirox 2019-0 Yes [id number] Apply to [facility] 8 % 3-28 area(s) at ity of solution 00:00: bedtime. [place] 00 Apply to [facility] ciclopirox 2019-0 Yes [id number] Apply to [facility] 8 % 3-28 area(s) at ity of solution 00:00: bedtime. [place] 00 Apply to [facility] ciclopirox 2019-0 Yes [id number] Apply to [facility] 8 % 3-28 area(s) at ity of solution 00:00: bedtime. [place] 00 Apply to [facility] ciclopirox 2019-0 Yes [id number] Apply to [facility] 8 % 3-28 area(s) at ity of solution 00:00: bedtime. [place] 00 Apply to [facility] ciclopirox 2019-0 Yes [id number] Apply to [facility] 8 % 3-28 area(s) at ity of solution 00:00: bedtime. [place] 00 Apply to [facility] ciclopirox 2019-0 Yes [id number] Apply to [facility] 8 % 3-28 area(s) at ity of solution 00:00: bedtime. [place] 00 Apply to [facility] ciclopirox 2019-0 Yes [id number] Apply to [facility] 8 % 3-28 area(s) at ity of solution 00:00: bedtime. [place] 00 Apply to [facility] ciclopirox 2019-0 Yes [id number] Apply to [facility] 8 % 3-28 area(s) at ity of solution 00:00: bedtime. [place] 00 Apply to [facility] ciclopirox 2019-0 Yes [id number] Apply to [facility] 8 % 3-28 area(s) at ity of solution 00:00: bedtime. [place] 00 Apply to [facility] ciclopirox 2019-0 Yes [id number] Apply to [facility] 8 % 3-28 area(s) at ity of solution 00:00: bedtime. [place] 00 Apply to [facility] ciclopirox 2019-0 Yes [id number] Apply to [facility] 8 % 3-28 area(s) at ity of solution 00:00: bedtime. [place] 00 Apply to [facility] ciclopirox 2019-0 Yes [id number] Apply to [facility] 8 % 3-28 area(s) at ity of solution 00:00: bedtime. [place] 00 Apply to [facility] ciclopirox 2019-0 Yes [id number] Apply to [facility] 8 % 3-28 area(s) at ity of solution 00:00: bedtime. [place] 00 Apply to [facility] ciclopirox 2019-0 Yes [id number] Apply to [facility] 8 % 3-28 area(s) at ity of solution 00:00: bedtime. [place] 00 Apply to [facility] ciclopirox 2019-0 Yes [id number] Apply to [facility] 8 % 3-28 area(s) at ity of solution 00:00: bedtime. [place] 00 Apply to [facility] ciclopirox 2019-0 Yes [id number] Apply to [facility] 8 % 3-28 area(s) at ity of solution 00:00: bedtime. [place] 00 Apply to [facility] ciclopirox 2019-0 Yes [id number] Apply to [facility] 8 % 3-28 area(s) at ity of solution 00:00: bedtime. [place] 00 Apply to [facility] ciclopirox 2019-0 Yes [id number] Apply to [facility] 8 % 3-28 area(s) at ity of solution 00:00: bedtime. [place] 00 Apply to [facility] ciclopirox 2019-0 Yes [id number] Apply to [facility] 8 % 3-28 area(s) at ity of solution 00:00: bedtime. [place] 00 Apply to [facility] ciclopirox 2019-0 Yes [id number] Apply to [facility] 8 % 3-28 area(s) at ity of solution 00:00: bedtime. [place] 00 Apply to [facility] ciclopirox 2019-0 Yes [id number] Apply to [facility] 8 % 3-28 area(s) at ity of solution 00:00: bedtime. [place] 00 Apply to [facility] ciclopirox 2019-0 Yes [id number] Apply to [facility] 8 % 3-28 area(s) at ity of solution 00:00: bedtime. [place] 00 Apply to [facility] ciclopirox 2019-0 Yes [id number] Apply to [facility] 8 % 3-28 area(s) at ity of solution 00:00: bedtime. [place] 00 Apply to [facility] ciclopirox 2019-0 Yes [id number] Apply to [facility] 8 % 3-28 area(s) at ity of solution 00:00: bedtime. [place] 00 Apply to [facility] ciclopirox Yes [id number] Apply to [facility] 8 % 3-28 area(s) at ity of solution 00:00: bedtime. [place] 00 Apply to [facility] alcaftadine Yes Place in [place] (LASTACAFT) 1 each eye. ity of 0.25 % Drop 20:36: [place] [address] Medical Branch CYCL[address] Yes Place in [place] [facility] (RESTASIS 10-09 each eye. ity of OPHTHALMIC) 20:36: [place] [address] Medical Branch ASCORBATE Yes Take by Unive rs CALCIUM 10-09 mouth. ity of (VITAMIN C 20:36: [place] ORAL) Medical Branch DOCOSAHEXAN Yes Take by Uni vers OIC 10-09 mouth. ity of ACID/EPA 20:36: [place] (FISH OIL 33 Medical ORAL) Branch vitamin E Yes 1000U Take 1,000 U nivers 1,000 unit 10-09 Units by ity o f capsule 20:36: mouth [place] 33 daily. Medical Branch Magnesium Yes Take by [facility] 250 mg Tab 10-09 mouth. ity of 20:36: [place] [address] Medical Branch vitamin B-6 Yes 100mg Take 100 U nivers (VITAMIN 1-23 mg by ity of B-6) 100 mg 20:36: mouth [place] tablet 33 daily. Medical Branch CALCIUM Yes Take by [facility] CARBONATE/V 10-09 mouth. ity of ITAMIN D3 20:36: [place] (VITAMIN 33 Medical D-3 ORAL) Branch alcaftadine Yes Place in [place] (LASTACAFT) 1 each eye. ity of 0.25 % Drop 20:36: [place] [address] [facility] Branch CYCLOS[address] Yes Place in [place] (RESTASIS 10-09 each eye. ity of OPHTHALMIC) 20:36: [place] [address] Medical Branch ASCORBATE 0 Yes Take by Unive rs CALCIUM - mouth. ity of (VITAMIN C 20:36: [place] ORAL) Medical Branch DOCOSAHEXAN Yes Take by Uni vers OIC 10-09 mouth. ity of ACID/EPA 20:36: [place] (FISH OIL 33 Medical ORAL) Branch vitamin E Yes 1000U Take 1,000 U nivers 1,000 unit 1-23 Units by ity o f capsule 20:36: mouth [place] 33 daily. Medical Branch Magnesium Yes Take by [facility] 250 mg Tab 1-23 mouth. ity of 20:36: [address] Branch vitamin B-6 Yes 100mg Take 100 U nivers (VITAMIN 1-23 mg by ity of B-6) 100 mg 20:36: mouth [place] tablet 33 daily. Medical [facility] CALCIUM Yes Take by [facility] CARBONATE/V 1-23 mouth. ity of ITAMIN D3 20:36: [place] (VITAMIN 33 Medical D-3 ORAL) Branch alcaftadine Yes Place in [place] (LASTACAFT) 1- each eye. ity of 0.25 % Drop 20:36: [address] Branch CYCLOSPOR[address] Yes Place in [place] (RESTASIS 1-23 each eye. ity of OPHTHALMIC) 20:36: [address] Branch ASCORBATE Yes Take by Unive rs CALCIUM 1-23 mouth. ity of (VITAMIN C 20:36: [place] ORAL) Medical Branch DOCOSAHEXAN Yes Take by Uni vers OIC 1-23 mouth. ity of ACID/EPA 20:36: [place] (FISH OIL 33 Medical ORAL) Branch vitamin E Yes 1000U Take 1,000 U nivers 1,000 unit 1-23 Units by ity o f capsule 20:36: mouth [place] 33 daily. Medical [facility] Magnesium Yes Take by [facility] 250 mg Tab 1-23 mouth. ity of 20:36: [place] [address] [facility] Branch vitamin B-6 Yes 100mg Take 100 U nivers (VITAMIN 1-23 mg by ity of B-6) 100 mg 20:36: mouth [place] tablet 33 daily. Medical Branch CALCIUM Yes Take by [facility] CARBONATE/V 1-23 mouth. ity of ITAMIN D3 20:36: [place] (VITAMIN 33 Medical D-3 ORAL) Branch alcaftadine Yes Place in [place] (LASTACAFT) 1-23 each eye. ity of 0.25 % Drop 20:36: [place] [address] [facility] Branch CYCLOSPORIN Yes Place in [place] (RESTASIS 1-23 each eye. ity of OPHTHALMIC) 20:36: [place] [address] [facility] Branch ASCORBATE Yes Take by [facility] rs CALCIUM - mouth. ity of (VITAMIN C 20:36: [place] ORAL) Medical Branch DOCOSAHEXAN Yes Take by Uni vers OIC 10-09 mouth. ity of ACID/EPA 20:36: [place] (FISH OIL 33 Medical ORAL) Branch vitamin E Yes 1000U Take 1,000 U nivers 1,000 unit 1-23 Units by ity o f capsule 20:36: mouth [place] 33 daily. Medical [facility] Magnesium Yes Take by [facility] 250 mg Tab - mouth. ity of 20:36: [place] [address] [facility] Branch vitamin B-6 Yes 100mg Take 100 U nivers (VITAMIN 1-23 mg by ity of B-6) 100 mg 20:36: mouth [place] tablet 33 daily. Medical Branch CALCIUM Yes Take by [facility] CARBONATE/V - mouth. ity of ITAMIN D3 20:36: [place] ([place] [address] Medical D-3 ORAL) Branch alcaftadine Yes Place in [place] (LASTACAFT) 1- each eye. ity of 0.25 % Drop 20:36: [place] [address] [facility] Branch CYCLOSPORIN Yes Place in [place] [facility] (RESTASIS 1- each eye. ity of OPHTHALMIC) 20:36: [place] [address] Medical Branch ASCORBATE Yes Take by [facility] rs CALCIUM - mouth. ity of (VITAMIN C 20:36: [place] ORAL) Medical Branch DOCOSAHEXAN Yes Take by Uni vers OIC 10-09 mouth. ity of ACID/EPA 20:36: [place] (FISH OIL 33 Medical ORAL) Branch vitamin E Yes 1000U Take 1,000 U nivers 1,000 unit 1-23 Units by ity o f capsule 20:36: mouth [place] 33 daily. Medical Branch Magnesium Yes Take by [facility] 250 mg Tab - mouth. ity of 20:36: [place] [address] [facility] Branch vitamin B-6 Yes 100mg Take 100 U nivers (VITAMIN 1-23 mg by ity of B-6) 100 mg 20:36: mouth [place] tablet 33 daily. Medical Branch CALCIUM Yes Take by [facility] CARBONATE/V - mouth. ity of ITAMIN D3 20:36: [place] (VITAMIN 33 Medical D-3 ORAL) Branch alcaftadine Yes Place in [place] (LASTACAFT) 1-23 each eye. ity of 0.25 % Drop 20:36: [place] [address] [facility] Branch CYCLOSPORIN Yes Place in [place] [facility] (RESTASIS 1- each eye. ity of OPHTHALMIC) 20:36: [place] [address] [facility] Branch ASCORBATE Yes Take by [facility] rs CALCIUM - mouth. ity of (VITAMIN C 20:36: [place] ORAL) Medical Branch DOCOSAHEXAN Yes Take by Uni vers OIC 10-09 mouth. ity of ACID/EPA 20:36: [place] (FISH OIL 33 Medical ORAL) Branch vitamin E Yes 1000U Take 1,000 U nivers 1,000 unit 1-23 Units by ity o f capsule 20:36: mouth [place] 33 daily. Medical Branch Magnesium Yes Take by [facility] 250 mg Tab 10-09 mouth. ity of 20:36: [address] Branch vitamin B-6 Yes 100mg Take 100 U nivers (VITAMIN 1-23 mg by ity of B-6) 100 mg 20:36: mouth [place] tablet 33 daily. Medical Branch CALCIUM Yes Take by [facility] CARBONATE/V 10-09 mouth. ity of ITAMIN D3 20:36: [place] (VITAMIN 33 Medical D-3 ORAL) Branch alcaftadine Yes Place in [place] (LASTACAFT) 1- each eye. ity of 0.25 % Drop 20:36: [place] [address] [facility] Branch CYCLOSPORIN Yes Place in [place] (RESTASIS 1-23 each eye. ity of OPHTHALMIC) 20:36: [place] [address] [facility] Branch ASCORBATE Yes Take by [facility] rs CALCIUM -23 mouth. ity of (VITAMIN C 20:36: [place] ORAL) Medical Branch DOCOSAHEXAN Yes Take by Uni vers OIC - mouth. ity of ACID/EPA 20:36: [place] (FISH OIL 33 Medical ORAL) Branch vitamin E Yes 1000U Take 1,000 U nivers 1,000 unit 1-23 Units by ity o f capsule 20:36: mouth [place] 33 daily. Medical Branch Magnesium Yes Take by [facility] 250 mg Tab 1-23 mouth. ity of 20:36: [place] [address] [facility] Branch vitamin B-6 Yes 100mg Take 100 U nivers (VITAMIN 1-23 mg by ity of B-6) 100 mg 20:36: mouth [place] tablet 33 daily. Medical Branch CALCIUM Yes Take by [facility] CARBONATE/V 1-23 mouth. ity of ITAMIN D3 20:36: [place] (VITAMIN 33 Medical D-3 ORAL) Branch alcaftadine Yes Place in [place] (LASTACAFT) 1- each eye. ity of 0.25 % Drop 20:36: [place] [address] [facility] Branch CYCLOSPORIN Yes Place in [place] [facility] (RESTASIS 1- each eye. ity of OPHTHALMIC) 20:36: [place] [address] [facility] Branch ASCORBATE Yes Take by Un[facility] rs CALCIUM -23 mouth. ity of (VITAMIN C 20:36: [place] ORAL) Medical Branch DOCOSAHEXAN Yes Take by Uni vers OIC - mouth. ity of ACID/EPA 20:36: [place] (FISH OIL Medical ORAL) Branch vitamin E Yes 1000U Take 1,000 U nivers 1,000 unit 1-23 Units by ity o f capsule 20:36: mouth [place] 33 daily. Medical Branch Magnesium Yes Take by [facility] 250 mg Tab 1-23 mouth. ity of 20:36: [place] [address] [facility] Branch vitamin B-6 Yes 100mg Take 100 U nivers (VITAMIN 1-23 mg by ity of B-6) 100 mg 20:36: mouth [place] tablet 33 daily. Medical Branch CALCIUM Yes Take by [facility] CARBONATE/V 1-23 mouth. ity of ITAMIN D3 20:36: [place] (VITAMIN 33 Medical D-3 ORAL) Branch alcaftadine Yes Place in [place] (LASTACAFT) 1-23 each eye. ity of 0.25 % Drop 20:36: [place] [address] [facility] Branch CYCLOSPORIN Yes Place in [place] (RESTASIS 1-23 each eye. ity of OPHTHALMIC) 20:36: [place] [address] Medical Branch ASCORBATE Yes Take by Un[facility] rs CALCIUM 1-23 mouth. ity of (VITAMIN C 20:36: [place] ORAL) Medical Branch DOCOSAHEXAN Yes Take by Uni vers OIC 1-23 mouth. ity of ACID/EPA 20:36: [place] (FISH OIL 33 Medical ORAL) Branch vitamin E Yes 1000U Take 1,000 U nivers 1,000 unit 1-23 Units by ity o f capsule 20:36: mouth [place] 33 daily. Medical Branch Magnesium Yes Take by [facility] 250 mg Tab 1-23 mouth. ity of 20:36: [place] [address] [facility] Branch vitamin B-6 Yes 100mg Take 100 U nivers (VITAMIN 1-23 mg by ity of B-6) 100 mg 20:36: mouth [place] tablet 33 daily. Medical Branch CALCIUM Yes Take by [facility] CARBONATE/V -23 mouth. ity of ITAMIN D3 20:36: [place] (VITAMIN 33 Medical D-3 ORAL) Branch alcaftadine Yes Place in [place] (LASTACAFT) 10-09 each eye. ity of 0.25 % Drop 20:36: [place] [address] [facility] Branch CYCLOSPORIN Yes Place in [place] (RESTASIS - each eye. ity of OPHTHALMIC) 20:36: [place] [address] Medical Branch ASCORBATE Yes Take by Un[facility] rs CALCIUM 1-23 mouth. ity of (VITAMIN C 20:36: [place] ORAL) Medical Branch DOCOSAHEXAN Yes Take by Uni vers OIC 1-23 mouth. ity of ACID/EPA 20:36: [place] (FISH OIL 33 Medical ORAL) Branch vitamin E Yes 1000U Take 1,000 U nivers 1,000 unit 1-23 Units by ity o f capsule 20:36: mouth [place] 33 daily. Medical Branch Magnesium Yes Take by [facility] 250 mg Tab 1-23 mouth. ity of 20:36: [place] [address] [facility] Branch vitamin B-6 Yes 100mg Take 100 U nivers (VITAMIN 1-23 mg by ity of B-6) 100 mg 20:36: mouth [place] tablet 33 daily. Medical Branch CALCIUM Yes Take by [facility] CARBONATE/V 1-23 mouth. ity of ITAMIN D3 20:36: [place] (VITAMIN 33 Medical D-3 ORAL) Branch alcaftadine 2019-[address] in [place] (LASTACAFT) 1-23 each eye. ity of 0.25 % Drop 20:36: [place] [address] [facility] Branch CYCLOSPORIN [address] [place] (RESTASIS 1-23 each eye. ity of OPHTHALMIC) 20:36: [place] [address] [facility] Branch ASCORBATE 0 Yes Take by [facility] rs CALCIUM - mouth. ity of (VITAMIN C 20:36: [place] ORAL) Medical Branch DOCOSAHEXAN Yes Take by Uni vers OIC 10-09 mouth. ity of ACID/EPA 20:36: [place] (FISH OIL 33 Medical ORAL) Branch vitamin E Yes 1000U Take 1,000 U nivers 1,000 unit 1-23 Units by ity o f capsule 20:36: mouth [place] 33 daily. Medical Branch Magnesium Yes Take by [facility] 250 mg Tab 10-09 mouth. ity of 20:36: [place] [address] [facility] Branch vitamin B-6 Yes 100mg Take 100 U nivers (VITAMIN 1-23 mg by ity of B-6) 100 mg 20:36: mouth [place] tablet 33 daily. Medical Branch CALCIUM Yes Take by [facility] CARBONATE/V 10-09 mouth. ity of ITAMIN D3 20:36: [place] (VITAMIN Medical D-3 ORAL) Branch alcaftadine Yes Place in [place] (LASTACAFT) 1-23 each eye. ity of 0.25 % Drop 20:36: [place] [address] [facility] Branch CYCLOSPORIN Yes Place in [place] [facility] (RESTASIS 1- each eye. ity of OPHTHALMIC) 20:36: [place] [address] [facility] Branch ASCORBATE Yes Take by [facility] CALCIUM - mouth. ity of (VITAMIN C 20:36: [place] ORAL) Medical Branch DOCOSAHEXAN Yes Take by Uni vers OIC 10-09 mouth. ity of ACID/EPA 20:36: [place] (FISH OIL 33 Medical ORAL) Branch vitamin E Yes 1000U Take 1,000 U nivers 1,000 unit 1-23 Units by ity o f capsule 20:36: mouth [place] 33 daily. Medical Branch Magnesium 0 Yes Take by [facility] 250 mg Tab 10-09 mouth. ity of 20:36: [place] [address] Medical Branch vitamin B-6 Yes 100mg Take 100 U nivers (VITAMIN 1-23 mg by ity of B-6) 100 mg 20:36: mouth [place] tablet 33 daily. Medical Branch CALCIUM Yes Take by [facility] CARBONATE/V 10-09 mouth. ity of ITAMIN D3 20:36: [place] (VITAMIN 33 Medical D-3 ORAL) [place] alcaftadine Yes Place in [place] (LASTACAFT) 10-09 each eye. ity of 0.25 % Drop 20:36: [address] Branch CYCL[address] Yes Place in [place] (RESTASIS 10-09 each eye. ity of OPHTHALMIC) 20:36: [place] [address] [facility] Branch ASCORBATE Yes Take by Jete rs CALCIUM 10-09 mouth. ity of (VITAMIN C 20:36: [place] ORAL) Medical Branch DOCOSAHEXAN Yes Take by Uni vers OIC 10-09 mouth. ity of ACID/EPA 20:36: [place] (FISH OIL Medical ORAL) Branch vitamin E Yes 1000U Take 1,000 U nivers 1,000 unit 10-09 Units by ity o f capsule 20:36: mouth [place] 33 daily. Medical Branch Magnesium Yes Take by Jete rs 250 mg Tab 10-09 mouth. ity of 20:36: [place] [address] Medical Mica vitamin B-6 Yes 100mg Take 100 U nivers (VITAMIN 1-23 mg by ity of B-6) 100 mg 20:36: mouth [place] tablet 33 daily. Medical Branch CALCIUM Yes Take by Univers CARBONATE/V 10-09 mouth. ity of ITAMIN D3 20:36: [place] (VITAMIN Medical D-3 ORAL) Mica Vitamin E Vitamin E No Vitamin E [...] 10 n Sodium MG MG 10 MG Vitamin C Vitamin C No Vitamin C 500 MG 500 MG 500 MG Losartan Losartan No Losartan Potassium Potassium Potassium 50 MG 50 MG 50 MG Spironolact Spironolact No 1{table Spironolac one 25 MG one 25 MG t} tone 25 MG metFORMIN metFORMIN No metFORMIN HCl ER [...] HCl ER 500 MG MG MG Vitamin D3 Vitamin D3 No Vitamin D3 Magnesium Magnesium No Magnesium Farxiga 5 Farxiga 5 No Farxiga 5 MG MG MG Ibandronate Ibandronate No Ibandronat Sodium 150 Sodium 150 e Sodium MG MG 150 MG Levothyroxi Levothyroxi No Levothyrox ne Sodium ne Sodium ine Sodium 75 MCG 75 MCG 75 MCG Vitamin E Vitamin E No Vitamin E Ibandronate Ibandronate No Ibandronat Sodium 150 Sodium 150 e Sodium MG MG 150 MG Losartan Losartan No Losartan Potassium Potassium Potassium 50 MG 50 MG 50 MG Pravastatin Pravastatin No Pravastati Sodium 20 Sodium 20 n Sodium MG MG 20 MG traZODone traZODone No 1{table QD traZODone HCl 100 MG HCl 100 MG t_at_be HCl 100 MG dtime} Metoprolol Metoprolol No 1{table QD Metoprolol Succinate Succinate t} Succinate ER 50 MG ER 50 MG ER 50 MG NexIUM NexIUM No NexIUM Pravastatin Pravastatin No Pravastati Sodium 20 Sodium [...] 0.25 % fected_ eye} Citalopram Citalopram No Citalopram Hydrobromid Hydrobromid Hydrobromi e 40 MG e 40 MG de 40 MG Vitamin E Vitamin E No Vitamin E Lastacaft Lastacaft No 1{drop_ QD Lastacaft 0.25 % 0.25 % into_af 0.25 % fected_ eye} Citalopram Citalopram No 1{table QD Citalopram Hydrobromid Hydrobromid t} Hydrobromi e 40 MG e 40 MG de 40 MG Furosemide Furosemide No 1{table QD Furosemide 40 MG 40 MG t} 40 MG Breo Breo No 1{puff} QD Breo Ellipta Ellipta Ellipta 200-25 200-25 200-25 MCG/INH MCG/INH MCG/INH metFORMIN metFORMIN No metFORMIN HCl ER 500 HCl ER 500 HCl ER 500 MG MG MG Pravastatin Pravastatin No Pravastati Sodium 10 Sodium 10 n Sodium MG MG 10 MG Magnesium Magnesium No Magnesium NexIUM NexIUM No NexIUM Pravastatin Pravastatin No Pravastati Sodium 20 Sodium 20 n Sodium MG MG 20 MG Pravastatin Pravastatin No Pravastati Sodium 10 Sodium 10 n Sodium MG MG 10 MG Vitamin D3 Vitamin D3 No Vitamin D3 Lastacaft Lastacaft No 1{drop_ QD Lastacaft 0.25 % 0.25 % into_af 0.25 % fected_ eye} Metoprolol Metoprolol No Metoprolol Succinate Succinate Succinate ER 50 MG ER 50 MG ER 50 MG Furosemide Furosemide No 1{table QD Furosemide 40 MG 40 MG t} 40 MG Levothyroxi Levothyroxi No Levothyrox ne Sodium ne Sodium ine Sodium 75 MCG 75 MCG 75 MCG Losartan Losartan No Losartan Potassium Potassium Potassium 50 MG 50 MG 50 MG Metoprolol Metoprolol No Metoprolol Succinate Succinate Succinate ER 50 MG ER 50 MG ER 50 MG Farxiga 5 Farxiga 5 No Farxiga 5 MG MG MG Vitamin C Vitamin C No Vitamin C 500 MG 500 MG 500 MG metFORMIN metFORMIN No metFORMIN HCl ER 500 HCl ER 500 HCl ER 500 MG MG MG Metoprolol Metoprolol No 1{table QD Metoprolol Succinate Succinate t} Succinate ER 50 MG ER 50 MG ER 50 MG Vitamin B6 Vitamin B6 No Vitamin B6 Breo Breo No 1{puff} QD Breo Ellipta Ellipta Ellipta 200-25 200-25 200-25 MCG/INH MCG/INH MCG/INH Ibandronate Ibandronate No Ibandronat Sodium 150 Sodium 150 e Sodium MG MG 150 MG Ibandronate Ibandronate No Ibandronat Sodium 150 Sodium 150 e Sodium MG MG 150 MG Citalopram Citalopram No Citalopram Hydrobromid Hydrobromid Hydrobromi e 40 MG e 40 MG de 40 MG traZODone traZODone No traZODone HCl 100 MG HCl 100 MG HCl 100 MG Ibandronate Ibandronate No Ibandronat Sodium 150 Sodium 150 e Sodium MG MG 150 MG Spironolact Spironolact No 1{table Spironolac one 25 MG one 25 MG t} tone 25 MG Vitamin E Vitamin E No Vitamin E metFORMIN metFORMIN No metFORMIN HCl ER 500 HCl ER 500 HCl ER 500 MG MG MG Pravastatin Pravastatin No Pravastati Sodium 10 Sodium 10 n Sodium MG MG 10 MG Lastacaft Lastacaft No 1{drop_ QD Lastacaft 0.25 % 0.25 % into_af 0.25 % fected_ eye} Breo Breo No 1{puff} QD Breo Ellipta Ellipta Ellipta 200-25 200-25 200-25 MCG/INH MCG/INH MCG/INH Citalopram Citalopram No 1{table QD Citalopram Hydrobromid Hydrobromid t} Hydrobromi e 10 MG e 10 MG de 10 MG Vitamin C Vitamin C No Vitamin C 500 MG 500 MG 500 MG Furosemide Furosemide No 1{table QD Furosemide 40 MG 40 MG t} 40 MG Losartan Losartan No Losartan Potassium Potassium Potassium 50 MG 50 MG 50 MG traZODone traZODone No traZODone HCl 100 MG HCl 100 MG HCl 100 MG Spironolact Spironolact No 1{table Spironolac one 25 MG one 25 MG t} tone 25 MG Levothyroxi Levothyroxi No Levothyrox ne Sodium ne Sodium ine Sodium 75 MCG 75 MCG 75 MCG Citalopram Citalopram No Citalopram Hydrobromid Hydrobromid Hydrobromi e 40 MG e 40 MG de 40 MG Vitamin B6 Vitamin B6 No Vitamin B6 Ibandronate Ibandronate No Ibandronat Sodium 150 Sodium 150 e Sodium MG MG 150 MG Vitamin E Vitamin E No Vitamin E Levothyroxi Levothyroxi No Levothyrox ne Sodium ne Sodium ine Sodium 50 MCG 50 MCG 50 MCG NexIUM NexIUM No NexIUM metFORMIN metFORMIN No metFORMIN HCl ER 500 HCl ER 500 HCl ER 500 MG MG MG Vitamin D3 Vitamin D3 No Vitamin D3 metFORMIN metFORMIN No metFORMIN HCl ER 500 HCl ER 500 HCl ER 500 MG MG MG Pravastatin Pravastatin No Pravastati Sodium 20 Sodium 20 n Sodium MG MG 20 MG Metoprolol Metoprolol No Metoprolol Succinate Succinate Succinate ER 50 MG ER 50 MG ER 50 MG Farxiga 5 Farxiga 5 No Farxiga 5 MG MG MG Ibandronate Ibandronate No Ibandronat Sodium 150 Sodium 150 e Sodium MG MG 150 MG Magnesium Magnesium No Magnesium Vitamin D3 Vitamin D3 No Vitamin D3 Pravastatin Pravastatin No Pravastati Sodium 10 Sodium 10 n Sodium MG MG 10 MG Vitamin B6 Vitamin B6 No Vitamin B6 Vitamin B6 Vitamin B6 No Vitamin B6 Spironolact Spironolact No 1{table Spironolac one 25 MG one 25 MG t} tone 25 MG metFORMIN metFORMIN No metFORMIN HCl ER 500 HCl ER 500 HCl ER 500 MG MG MG Vitamin E Vitamin E No Vitamin E NexIUM NexIUM No NexIUM OneTouch OneTouch No OneTouch Ultra - Ultra - Ultra - Losartan Losartan No Losartan Potassium Potassium Potassium 50 MG 50 MG 50 MG Farxiga 5 Farxiga 5 No Farxiga 5 MG MG MG Citalopram Citalopram No Citalopram Hydrobromid Hydrobromid Hydrobromi e 40 MG e 40 MG de 40 MG traZODone traZODone No traZODone HCl 100 MG HCl 100 MG HCl 100 MG Magnesium Magnesium No Magnesium Vitamin D3 Vitamin D3 No Vitamin D3 Ibandronate Ibandronate No Ibandronat Sodium 150 Sodium 150 e Sodium MG MG 150 MG Pravastatin Pravastatin No Pravastati Sodium 20 Sodium 20 n Sodium MG MG 20 MG Vitamin C Vitamin C No Vitamin C 500 MG 500 MG 500 MG Furosemide Furosemide No 1{table QD Furosemide 40 MG 40 MG t} 40 MG Ibandronate Ibandronate No Ibandronat Sodium 150 Sodium 150 e Sodium MG MG 150 MG metFORMIN metFORMIN No metFORMIN HCl ER 500 HCl ER 500 HCl ER 500 MG MG MG Lastacaft Lastacaft No 1{drop_ QD Lastacaft 0.25 % 0.25 % into_af 0.25 % fected_ eye} Breo Breo No 1{puff} QD Breo Ellipta Ellipta Ellipta 200-25 200-25 200-25 MCG/INH MCG/INH MCG/INH Metoprolol Metoprolol No Metoprolol Succinate Succinate Succinate ER 50 MG ER 50 MG ER 50 MG Losartan Losartan No 1{table QD Losartan Potassium Potassium t} Potassium 50 MG 50 MG 50 MG Levothyroxi Levothyroxi No Levothyrox ne Sodium ne Sodium ine Sodium 75 MCG 75 MCG 75 MCG Magnesium Magnesium No Magnesium Pravastatin Pravastatin No Pravastati Sodium 10 Sodium 10 n Sodium MG MG 10 MG Vitamin B6 Vitamin B6 No Vitamin B6 Spironolact Spironolact No 1{table Spironolac one 25 MG one 25 MG t} tone 25 MG metFORMIN metFORMIN No metFORMIN HCl ER 500 HCl ER 500 HCl ER 500 MG MG MG Vitamin E Vitamin E No Vitamin E NexIUM NexIUM No NexIUM NexIUM NexIUM No NexIUM OneTouch OneTouch No OneTouch Ultra - Ultra - Ultra - Losartan Losartan No Losartan Potassium Potassium Potassium 50 MG 50 MG 50 MG Farxiga 5 Farxiga 5 No Farxiga 5 MG MG MG Citalopram Citalopram No Citalopram Hydrobromid Hydrobromid Hydrobromi e 40 MG e 40 MG de 40 MG traZODone traZODone No traZODone HCl 100 MG HCl 100 MG HCl 100 MG Vitamin D3 Vitamin D3 No Vitamin D3 Ibandronate Ibandronate No Ibandronat Sodium 150 Sodium 150 e Sodium MG MG 150 MG Pravastatin Pravastatin No Pravastati Sodium 20 Sodium 20 n Sodium MG MG 20 MG Vitamin C Vitamin C No Vitamin C 500 MG 500 MG 500 MG Furosemide Furosemide No 1{table QD Furosemide 40 MG 40 MG t} 40 MG Ibandronate Ibandronate No Ibandronat Sodium 150 Sodium 150 e Sodium MG MG 150 MG metFORMIN metFORMIN No metFORMIN HCl ER 500 HCl ER 500 HCl ER 500 MG MG MG Lastacaft Lastacaft No 1{drop_ QD Lastacaft 0.25 % 0.25 % into_af 0.25 % fected_ eye} Breo Breo No 1{puff} QD Breo Ellipta Ellipta Ellipta 200-25 200-25 200-25 MCG/INH MCG/INH MCG/INH Metoprolol Metoprolol No Metoprolol Succinate Succinate Succinate ER 50 MG ER 50 MG ER 50 MG Levothyroxi Levothyroxi No Levothyrox ne Sodium ne Sodium ine Sodium 75 MCG 75 MCG 75 MCG Magnesium Magnesium No Magnesium Pravastatin Pravastatin No Pravastati Sodium 10 Sodium 10 n Sodium MG MG 10 MG Vitamin B6 Vitamin B6 No Vitamin B6 Spironolact Spironolact No 1{table Spironolac one 25 MG one 25 MG t} tone 25 MG metFORMIN metFORMIN No metFORMIN HCl ER 500 HCl ER 500 HCl ER 500 MG MG MG Vitamin E Vitamin E No Vitamin E NexIUM NexIUM No NexIUM OneTouch OneTouch No OneTouch Ultra - Ultra - Ultra - Losartan Losartan No Losartan Potassium Potassium Potassium 50 MG 50 MG 50 MG Farxiga 5 Farxiga 5 No Farxiga 5 MG MG MG Citalopram Citalopram No Citalopram Hydrobromid Hydrobromid Hydrobromi e 40 MG e 40 MG de 40 MG traZODone traZODone No traZODone HCl 100 MG HCl 100 MG HCl 100 MG Vitamin D3 Vitamin D3 No Vitamin D3 Ibandronate Ibandronate No Ibandronat Sodium 150 Sodium 150 e Sodium MG MG 150 MG Pravastatin Pravastatin No Pravastati Sodium 20 Sodium 20 n Sodium MG MG 20 MG Vitamin C Vitamin C No Vitamin C 500 MG 500 MG 500 MG Furosemide Furosemide No 1{table QD Furosemide 40 MG 40 MG t} 40 MG Ibandronate Ibandronate No Ibandronat Sodium 150 Sodium 150 e Sodium MG MG 150 MG metFORMIN metFORMIN No metFORMIN HCl ER 500 HCl ER 500 HCl ER 500 MG MG MG Lastacaft Lastacaft No 1{drop_ QD Lastacaft 0.25 % 0.25 % into_af 0.25 % fected_ eye} Breo Breo No 1{puff} QD Breo Ellipta Ellipta Ellipta 200-25 200-25 200-25 MCG/INH MCG/INH MCG/INH Metoprolol Metoprolol No Metoprolol Succinate Succinate Succinate ER 50 MG ER 50 MG ER 50 MG Levothyroxi Levothyroxi No Levothyrox ne Sodium ne Sodium ine Sodium 75 MCG 75 MCG 75 MCG Magnesium Magnesium No Magnesium Pravastatin Pravastatin No Pravastati Sodium 10 Sodium 10 n Sodium MG MG 10 MG Vitamin B6 Vitamin B6 No Vitamin B6 Spironolact Spironolact No 1{table Spironolac one 25 MG one 25 MG t} tone 25 MG metFORMIN metFORMIN No metFORMIN HCl ER 500 HCl ER 500 HCl ER 500 MG MG MG Vitamin E Vitamin E No Vitamin E NexIUM NexIUM No NexIUM OneTouch OneTouch No OneTouch Ultra - Ultra - Ultra - Losartan Losartan No Losartan Potassium Potassium Potassium 50 MG 50 MG 50 MG Farxiga 5 Farxiga 5 No Farxiga 5 MG MG MG Citalopram Citalopram No Citalopram Hydrobromid Hydrobromid Hydrobromi e 40 MG e 40 MG de 40 MG traZODone traZODone No traZODone HCl 100 MG HCl 100 MG HCl 100 MG Vitamin D3 Vitamin D3 No Vitamin D3 Ibandronate Ibandronate No Ibandronat Sodium 150 Sodium 150 e Sodium MG MG 150 MG Pravastatin Pravastatin No Pravastati Sodium 20 Sodium 20 n Sodium MG MG 20 MG Vitamin C Vitamin C No Vitamin C 500 MG 500 MG 500 MG Furosemide Furosemide No 1{table QD Furosemide 40 MG 40 MG t} 40 MG Ibandronate Ibandronate No Ibandronat Sodium 150 Sodium 150 e Sodium MG MG 150 MG metFORMIN metFORMIN No metFORMIN HCl ER 500 HCl ER 500 HCl ER 500 MG MG MG Lastacaft Lastacaft No 1{drop_ QD Lastacaft 0.25 % 0.25 % into_af 0.25 % fected_ eye} Breo Breo No 1{puff} QD Breo Ellipta Ellipta Ellipta 200-25 200-25 200-25 MCG/INH MCG/INH MCG/INH Metoprolol Metoprolol No Metoprolol Succinate Succinate Succinate ER 50 MG ER 50 MG ER 50 MG Levothyroxi Levothyroxi No Levothyrox ne Sodium ne Sodium ine Sodium 75 MCG 75 MCG 75 MCG Magnesium Magnesium No Magnesium Pravastatin Pravastatin No Pravastati Sodium 10 Sodium 10 n Sodium MG MG 10 MG Vitamin B6 Vitamin B6 No Vitamin B6 Spironolact Spironolact No 1{table Spironolac one 25 MG one 25 MG t} tone 25 MG metFORMIN metFORMIN No metFORMIN HCl ER 500 HCl ER 500 HCl ER 500 MG MG MG Vitamin E Vitamin E No Vitamin E NexIUM NexIUM No NexIUM OneTouch OneTouch No OneTouch Ultra - Ultra - Ultra - Losartan Losartan No Losartan Potassium Potassium Potassium 50 MG 50 MG 50 MG Farxiga 5 Farxiga 5 No Farxiga 5 MG MG MG Citalopram Citalopram No Citalopram Hydrobromid Hydrobromid Hydrobromi e 40 MG e 40 MG de 40 MG traZODone traZODone No traZODone HCl 100 MG HCl 100 MG HCl 100 MG Vitamin D3 Vitamin D3 No Vitamin D3 Ibandronate Ibandronate No Ibandronat Sodium 150 Sodium 150 e Sodium MG MG 150 MG Pravastatin Pravastatin No Pravastati Sodium 20 Sodium 20 n Sodium MG MG 20 MG Vitamin C Vitamin C No Vitamin C 500 MG 500 MG 500 MG Furosemide Furosemide No 1{table QD Furosemide 40 MG 40 MG t} 40 MG Ibandronate Ibandronate No Ibandronat Sodium 150 Sodium 150 e Sodium MG MG 150 MG metFORMIN metFORMIN No metFORMIN HCl ER 500 HCl ER 500 HCl ER 500 MG MG MG Lastacaft Lastacaft No 1{drop_ QD Lastacaft 0.25 % 0.25 % into_af 0.25 % fected_ eye} Breo Breo No 1{puff} QD Breo Ellipta Ellipta Ellipta 200-25 200-25 200-25 MCG/INH MCG/INH MCG/INH Metoprolol Metoprolol No Metoprolol Succinate Succinate Succinate ER 50 MG ER 50 MG ER 50 MG Levothyroxi Levothyroxi No Levothyrox ne Sodium ne Sodium ine Sodium 75 MCG 75 MCG 75 MCG Magnesium Magnesium No Magnesium Vitamin B6 Vitamin B6 No Vitamin B6 Spironolact Spironolact No 1{table Spironolac one 25 MG one 25 MG t} tone 25 MG Magnesium Magnesium No Magnesium Breo Breo No 1{puff} QD Breo Ellipta Ellipta Ellipta 200-25 200-25 200-25 MCG/INH MCG/INH MCG/INH NexIUM NexIUM No NexIUM Ozempic Ozempic No Ozempic (0.25 or (0.25 or (0.25 or 0.5 0.5 0.5 MG/DOSE) 2 MG/DOSE) 2 MG/DOSE) 2 MG/1.5ML MG/1.5ML MG/1.5ML Pravastatin Pravastatin No Pravastati Sodium 10 Sodium 10 n Sodium MG MG 10 MG OneTouch OneTouch No OneTouch Ultra - Ultra - Ultra - metFORMIN metFORMIN No metFORMIN HCl ER 500 HCl ER 500 HCl ER 500 MG MG MG Farxiga 5 Farxiga 5 No Farxiga 5 MG MG MG Citalopram Citalopram No Citalopram Hydrobromid Hydrobromid Hydrobromi e 40 MG e 40 MG de 40 MG traZODone traZODone No traZODone HCl 100 MG HCl 100 MG HCl 100 MG Ibandronate Ibandronate No Ibandronat Sodium 150 Sodium 150 e Sodium MG MG 150 MG Vitamin E Vitamin E No Vitamin E Pravastatin Pravastatin No Pravastati Sodium 20 Sodium 20 n Sodium MG MG 20 MG metFORMIN metFORMIN No metFORMIN HCl ER [...] Potassium 50 MG 50 MG 50 MG Furosemide Furosemide No 1{table QD Furosemide 40 MG 40 MG t} 40 MG Metoprolol Metoprolol No Metoprolol Succinate Succinate Succinate ER 50 MG ER 50 MG ER 50 MG Levothyroxi Levothyroxi No Levothyrox ne Sodium ne Sodium ine Sodium 75 MCG 75 MCG 75 MCG Vitamin C Vitamin C No Vitamin C 500 MG 500 MG 500 MG traZODone traZODone No traZODone HCl 100 MG HCl 100 MG HCl 100 MG Vitamin B6 Vitamin B6 No Vitamin B6 Spironolact Spironolact No 1{table Spironolac one 25 MG one 25 MG t} tone 25 MG Magnesium Magnesium No Magnesium Breo Breo No 1{puff} QD Breo Ellipta Ellipta Ellipta 200-25 200-25 200-25 MCG/INH MCG/INH MCG/INH NexIUM NexIUM No NexIUM Ibandronate Ibandronate No Ibandronat Sodium 150 Sodium 150 e Sodium MG MG 150 MG Ozempic Ozempic No Ozempic (0.25 or (0.25 or (0.25 or 0.5 0.5 0.5 MG/DOSE) 2 MG/DOSE) 2 MG/DOSE) 2 MG/1.5ML MG/1.5ML MG/1.5ML Pravastatin Pravastatin No Pravastati Sodium 10 Sodium 10 n Sodium MG MG 10 MG OneTouch OneTouch No OneTouch Ultra - Ultra - Ultra - metFORMIN metFORMIN No metFORMIN HCl ER 500 HCl ER 500 HCl ER 500 MG MG MG Farxiga 5 Farxiga 5 No Farxiga 5 MG MG MG Citalopram Citalopram No Citalopram Hydrobromid Hydrobromid Hydrobromi e 40 MG e 40 MG de 40 MG traZODone traZODone No traZODone HCl 100 MG HCl 100 MG HCl 100 MG Ibandronate Ibandronate No Ibandronat Sodium 150 Sodium 150 e Sodium MG MG 150 MG Vitamin E Vitamin E No Vitamin E Pravastatin Pravastatin No Pravastati Sodium 20 Sodium 20 n Sodium MG MG 20 MG metFORMIN metFORMIN No metFORMIN HCl ER [...] Potassium 50 MG 50 MG 50 MG Furosemide Furosemide No 1{table QD Furosemide 40 MG 40 MG t} 40 MG Metoprolol Metoprolol No Metoprolol Succinate Succinate Succinate ER 50 MG ER 50 MG ER 50 MG Levothyroxi Levothyroxi No Levothyrox ne Sodium ne Sodium ine Sodium 75 MCG 75 MCG 75 MCG Vitamin C Vitamin C No Vitamin C 500 MG 500 MG 500 MG Vitamin C Vitamin C No Vitamin C 500 MG 500 MG 500 MG traZODone traZODone No traZODone HCl 100 MG HCl 100 MG HCl 100 MG metFORMIN metFORMIN No metFORMIN HCl ER 500 HCl ER 500 HCl ER 500 MG MG MG Vitamin C Vitamin C No Vitamin C 500 MG 500 MG 500 MG Pravastatin Pravastatin No Pravastati Sodium 10 Sodium 10 n Sodium MG MG 10 MG Citalopram Citalopram No Citalopram Hydrobromid Hydrobromid Hydrobromi e 40 MG e 40 MG de 40 MG Ibandronate Ibandronate No Ibandronat Sodium 150 Sodium 150 e Sodium MG MG 150 MG Vitamin D3 Vitamin D3 No Vitamin D3 Ozempic Ozempic No Ozempic (0.25 or (0.25 or (0.25 or 0.5 0.5 0.5 MG/DOSE) 2 MG/DOSE) 2 MG/DOSE) 2 MG/1.5ML MG/1.5ML MG/1.5ML Breo Breo No 1{puff} QD Breo Ellipta Ellipta Ellipta 200-25 200-25 200-25 MCG/INH MCG/INH MCG/INH Ozempic Ozempic No Ozempic 0.25 or 0.5 0.25 or 0.5 0.25 or MG/DOSE MG/DOSE 0.5 MG/DOSE Furosemide Furosemide No 1{table QD Furosemide 40 MG 40 MG t} 40 MG metFORMIN metFORMIN No metFORMIN HCl ER 500 HCl ER 500 HCl ER 500 MG MG MG Pravastatin Pravastatin No Pravastati Sodium 20 Sodium 20 n Sodium MG MG 20 MG Lastacaft Lastacaft No 1{drop_ QD Lastacaft 0.25 % 0.25 % into_af 0.25 % fected_ eye} Losartan Losartan No Losartan Potassium Potassium Potassium 50 MG 50 MG 50 MG Vitamin B6 Vitamin B6 No Vitamin B6 Pravastatin Pravastatin No 1{table QD Pravastati Sodium 20 Sodium 20 t} n Sodium MG MG 20 MG Metoprolol Metoprolol No 1{table QD Metoprolol Succinate Succinate t} Succinate ER 50 MG ER 50 MG ER 50 MG Farxiga 5 Farxiga 5 No Farxiga 5 MG MG MG Farxiga 5 Farxiga 5 No Farxiga 5 MG MG MG Pravastatin Pravastatin No Pravastati Sodium 10 Sodium 10 n Sodium MG MG 10 MG Citalopram Citalopram No 1{table QD Citalopram Hydrobromid Hydrobromid t} Hydrobromi e 40 MG e 40 MG de 40 MG Levothyroxi Levothyroxi No Levothyrox ne Sodium ne Sodium ine Sodium 75 MCG 75 MCG 75 MCG Magnesium Magnesium No Magnesium Spironolact Spironolact No 1{table Spironolac one 25 MG one 25 MG t} tone 25 MG Vitamin E Vitamin E No Vitamin E NexIUM NexIUM No NexIUM Losartan Losartan No Losartan Potassium Potassium Potassium 50 MG 50 MG 50 MG Metoprolol Metoprolol No Metoprolol Succinate Succinate Succinate ER 50 MG ER 50 MG ER 50 MG Ibandronate Ibandronate No Ibandronat Sodium 150 Sodium 150 e Sodium MG MG 150 MG traZODone traZODone No 1{table QD traZODone HCl 50 MG HCl 50 MG t_at_be HCl 50 MG dtime} OneTouch OneTouch No OneTouch Ultra - Ultra - Ultra - Losartan Losartan No Losartan Potassium Potassium Potassium 50 MG 50 MG 50 MG Levothyroxi Levothyroxi No Levothyrox ne Sodium ne Sodium ine Sodium 75 MCG 75 MCG 75 MCG Vitamin E Vitamin E No Vitamin E Lastacaft Lastacaft No 1{drop_ QD Lastacaft 0.25 % 0.25 % into_af 0.25 % fected_ eye} traZODone traZODone No traZODone HCl 100 MG HCl 100 MG HCl 100 MG metFORMIN metFORMIN No metFORMIN HCl ER 500 HCl ER 500 HCl ER 500 MG MG MG Vitamin C Vitamin C No Vitamin C 500 MG 500 MG 500 MG Citalopram Citalopram No Citalopram Hydrobromid Hydrobromid Hydrobromi e 40 MG e 40 MG de 40 MG Ibandronate Ibandronate No Ibandronat Sodium 150 Sodium 150 e Sodium MG MG 150 MG Vitamin D3 Vitamin D3 No Vitamin D3 Ozempic Ozempic No Ozempic (0.25 or (0.25 or (0.25 or 0.5 0.5 0.5 MG/DOSE) 2 MG/DOSE) 2 MG/DOSE) 2 MG/1.5ML MG/1.5ML MG/1.5ML Breo Breo No 1{puff} QD Breo Ellipta Ellipta Ellipta 200-25 200-25 200-25 MCG/INH MCG/INH MCG/INH metFORMIN metFORMIN No metFORMIN HCl ER 500 HCl ER 500 HCl ER 500 MG MG MG Ozempic Ozempic No Ozempic 0.25 or 0.5 0.25 or 0.5 0.25 or MG/DOSE MG/DOSE 0.5 MG/DOSE Furosemide Furosemide No 1{table QD Furosemide 40 MG 40 MG t} 40 MG metFORMIN metFORMIN No metFORMIN HCl ER 500 HCl ER 500 HCl ER 500 MG MG MG Pravastatin Pravastatin No Pravastati Sodium 20 Sodium 20 n Sodium MG MG 20 MG Lastacaft Lastacaft No 1{drop_ QD Lastacaft 0.25 % 0.25 % into_af 0.25 % fected_ eye} Vitamin B6 Vitamin B6 No Vitamin B6 Pravastatin Pravastatin No 1{table QD Pravastati Sodium 20 Sodium 20 t} n Sodium MG MG 20 MG Metoprolol Metoprolol No 1{table QD Metoprolol Succinate Succinate t} Succinate ER 50 MG ER 50 MG ER 50 MG Farxiga 5 Farxiga 5 No Farxiga 5 MG MG MG Farxiga 5 Farxiga 5 No Farxiga 5 MG MG MG Pravastatin Pravastatin No Pravastati Sodium 10 Sodium 10 n Sodium MG MG 10 MG Pravastatin Pravastatin No Pravastati Sodium 10 Sodium 10 n Sodium MG MG 10 MG Citalopram Citalopram No 1{table QD Citalopram Hydrobromid Hydrobromid t} Hydrobromi e 40 MG e 40 MG de 40 MG Levothyroxi Levothyroxi No Levothyrox ne Sodium ne Sodium ine Sodium 75 MCG 75 MCG 75 MCG Magnesium Magnesium No Magnesium Spironolact Spironolact No 1{table Spironolac one 25 MG one 25 MG t} tone 25 MG NexIUM NexIUM No NexIUM Losartan Losartan No Losartan Potassium Potassium Potassium 50 MG 50 MG 50 MG Metoprolol Metoprolol No Metoprolol Succinate Succinate Succinate ER 50 MG ER 50 MG ER 50 MG Ibandronate Ibandronate No Ibandronat Sodium 150 Sodium 150 e Sodium MG MG 150 MG traZODone traZODone No 1{table QD traZODone HCl 50 MG HCl 50 MG t_at_be HCl 50 MG dtime} Metoprolol Metoprolol No Metoprolol Succinate Succinate Succinate ER 50 MG ER 50 MG ER 50 MG OneTouch OneTouch No OneTouch Ultra - Ultra - Ultra - Losartan Losartan No Losartan Potassium Potassium Potassium 50 MG 50 MG 50 MG Levothyroxi Levothyroxi No Levothyrox ne Sodium ne Sodium ine Sodium 75 MCG 75 MCG 75 MCG Vitamin E Vitamin E No Vitamin E Ibandronate Ibandronate No Ibandronat Sodium 150 Sodium [...] MG e 40 MG de 40 MG Farxiga 5 Farxiga 2021- No Farxiga 5 MG MG 11-07 MG 00:00 :00 Farxiga 5 Farxiga 2021- No Farxiga 5 MG MG 11-07 MG 00:00 :00 Farxiga 5 Farxiga 2021- No Farxiga 5 MG MG 11-07 MG 00:00 :00 Farxiga 5 Farxiga 5 2021- No Farxiga 5 MG MG 11-07 MG 00:00 :00 Farxiga 5 Farxiga 2021- No Farxiga 5 MG MG 11-07 MG 00:00 :00 Farxiga 5 Farxiga 5 2021- No Farxiga 5 MG MG 11-07 MG 00:00 :00 Immunizations Ordered Filled Immunization Date Status Comments [facility] e Immunization Name Name Pneumococcal 2019-04-25 Completed [...] [facility] PCV[facility] [place] [facility] (Prevnar 13) Branch Pneumococcal 13 2017-08-27 [...] Observation Time Observation Value Comments Source height 2022-09-26 59 [in_i] [facility] - 15:20:00 [facility] weight 2022-09-26 177.8 [lb_av] [facility] - 15:20:00 [facility] temperature 2022-09-26 97.2 [degF] [facility] - 15:20:00 [facility] bmi 2022-09-26 35.91 kg/m2 [facility] - 15:20:00 [facility] oximetry 2022-09-26 98 % [facility] - 15:20:00 [facility] respiratory rate 2022-09-26 17 /min [facility] - 15:20:00 [facility] blood pressure 2022-09-26 138 mm[Hg] [facility] - systolic 15:20:00 [facility] blood pressure 2022-09-26 65 mm[Hg] [facility] - diastolic 15:20:00 [facility] height 2022-07-25 59 [in_i] [facility] - 14:30:00 [facility] weight 2022-07-25 181.6 [lb_av] [facility] - 14:30:00 [facility] temperature 2022-07-25 97.8 [degF] [facility] 14:[facility] [facility] b[facility] 2022-07-25 36.67 kg/m2 [facility] - 14:30:00 [facility] oximetry 2022-07-25 97 % [facility] - 14:30:00 [facility] respiratory rate 2022-07-25 17 /min [facility] - 14:30:00 [facility] blood pressure 2022-07-25 136 mm[Hg] [facility] - systolic 14:30:00 [facility] blood pressure 2022-07-25 70 mm[Hg] [facility] - diastolic 14:30:00 [facility] height 2022-07-06 59 [in_i] [facility] - 11:40:00 [facility] weight 2022-07-06 179.4 [lb_av] [facility] - 11:40:00 [facility] temperature 2022-07-06 97.2 [degF] [facility] - 11:40:00 [facility] bmi 2022-07-06 36.23 kg/m2 [facility] - 11:40:00 [facility] oximetry 2022-07-06 98 % [facility] - 11:40:00 [facility] respiratory rate 2022-07-06 18 /min [facility] - 11:40:00 [facility] blood pressure 2022-07-06 138 mm[Hg] [facility] - systolic 11:40:00 [facility] blood pressure 2022-07-06 74 mm[Hg] [facility] - diastolic 11:40:00 [facility] height 2022-05-17 59 [in_i] [facility] - 13:00:00 [facility] weight 2022-05-17 185 [lb_av] [facility] - 13:00:00 [facility] bmi 2022-05-17 37.36 kg/m2 [facility] - 13:00:00 [facility] height 2022-04-25 59 [in_i] [facility] - 16:00:00 [facility] weight 2022-04-25 185.1 [lb_av] [facility] - 16:00:00 [facility] temperature 2022-04-25 97.2 [degF] [facility] - 16:00:00 [facility] bmi 2022-04-25 37.38 kg/m2 [facility] - 16:00:00 [facility] oximetry 2022-04-25 97 % [facility] - 16:00:00 [facility] respiratory rate 2022-04-25 17 /min [facility] - 16:00:00 [facility] blood pressure 2022-04-25 130 mm[Hg] [facility] - systolic 16:00:00 [facility] blood pressure 2022-04-25 63 mm[Hg] [facility] - diastolic 16:00:00 [facility] height 2021-12-28 59 [in_i] [facility] - 10:40:00 [facility] weight 2021-12-28 178.6 [lb_av] [facility] - 10:40:00 [facility] temperature 2021-12-28 97.2 [degF] [facility] - 10:40:00 [facility] bmi 2021-12-28 36.07 kg/m2 [facility] - 10:40:00 [facility] oximetry 2021-12-28 96 % [facility] - 10:40:00 [facility] respiratory rate 2021-12-28 16 /min [facility] - 10:40:00 [facility] blood pressure 2021-12-28 133 mm[Hg] [facility] - systolic 10:40:00 [facility] blood pressure 2021-12-28 63 mm[Hg] [facility] - diastolic 10:40:00 [facility] height 2021-11-29 59 [in_i] [facility] - 10:00:00 [facility] weight 2021-11-29 186.0 [lb_av] [facility] - 10:00:00 [facility] temperature 2021-11-29 97.2 [degF] [facility] - 10:00:00 [facility] bmi 2021-11-29 37.56 kg/m2 [facility] - 10:00:00 [facility] oximetry 2021-11-29 97 % [facility] - 10:00:00 [facility] respiratory rate 2021-11-29 16 /min [facility] - 10:00:00 [facility] blood pressure 2021-11-29 136 mm[Hg] [facility] - systolic 10:00:00 [facility] blood pressure 2021-11-29 72 mm[Hg] [facility] - diastolic 10:00:00 [facility] height 2021-10-26 59 [in_i] [facility] - 13[facility]00:00 [facility] weight 2021-10-26 178.8 [lb_av] [facility] - 13:00:00 [facility] temperature 2021-10-26 97.9 [degF] [facility] - 13:00:00 [facility] bmi 2021-10-26 36.11 kg/m2 [facility] - 13:00:00 [facility] oximetry 2021-10-26 97 % [facility] - 13:00:00 [facility] respiratory rate 2021-10-26 17 /min [facility] - 13:00:00 [facility] blood pressure 2021-10-26 132 mm[Hg] [facility] - systolic 13:00:00 [facility] blood pressure 2021-10-26 76 mm[Hg] [facility] - diastolic 13:00:00 [facility] height 2021-09-28 59 [in_i] [facility] - 13:20:00 [facility] weight 2021-09-28 177.9 [lb_av] [facility] - 13:20:00 [facility] temperature 2021-09-28 97.8 [degF] [facility] - 13:20:00 [facility] bmi 2021-09-28 35.93 kg/m2 [facility] - 13:20:00 [facility] oximetry 2021-09-28 96 % [facility] - 13:20:00 [facility] respiratory rate 2021-09-28 16 /min [facility] - 13:20:00 [facility] blood pressure 2021-09-28 135 mm[Hg] [facility] - systolic 13:20:00 [facility] blood pressure 2021-09-28 72 mm[Hg] [facility] - diastolic 13:20:00 [facility] height 2021-08-29 59 [in_i] [facility] - 13:50:00 [facility] weight 2021-08-29 174.1 [lb_av] [facility] - 13:50:00 [facility] temperature 2021-08-29 97.2 [degF] [facility] - 13:50:00 [facility] bmi 2021-08-29 35.16 kg/m2 [facility] - 13:50:00 [facility] oximetry 2021-08-29 99 % [facility] - 13:50:00 [facility] respiratory rate 2021-08-29 16 /min [facility] - 13[facility]50:00 [facility] blood pressure 2021-08-29 132 mm[Hg] [facility] - systolic 13:50:00 [facility] blood pressure 2021-08-29 72 mm[Hg] [facility] - diastolic 13:50:00 [facility] height 2021-07-19 59 [in_i] [facility] - 14:40:00 [facility] weight 2021-07-19 165 [lb_av] [facility] - 14:40:00 [facility] temperature 2021-07-19 98 [degF] [facility] - 14:40:00 [facility] bmi 2021-07-19 33.32 kg/m2 [facility] - 14:40:00 [facility] blood pressure 2021-07-19 139 mm[Hg] [facility] - systolic 14:40:00 [facility] blood pressure 2021-07-19 72 mm[Hg] [facility] - diastolic 14:40:00 [facility] height 2021-05-19 59 [in_i] [facility] - 10:50:00 [facility] weight 2021-05-19 163.0 [lb_av] [facility] - 10:50:00 [facility] temperature 2021-05-19 97.4 [degF] [facility] - 10:50:00 [facility] bmi 2021-05-19 32.92 kg/m2 [facility] - 10:50:00 [facility] oximetry 2021-05-19 95 % [facility] - 10:50:00 [facility] respiratory rate 2021-05-19 16 /min [facility] - 10[facility]50:00 [facility] blood pressure 2021-05-19 158 mm[Hg] [facility] - systolic 10:50:00 [facility] blood pressure 2021-05-19 79 mm[Hg] [facility] - diastolic 10:50:00 [facility] bmi 2021-04-20 34.03 kg/m2 [facility] - 15:30:00 [facility] oximetry 2021-04-20 97 % [facility] - 15:30:00 [facility] respiratory rate 2021-04-20 17 /min [facility] - 15:30:00 [facility] blood pressure 2021-04-20 138 mm[Hg] [facility] - systolic 15:30:00 [facility] blood pressure 2021-04-20 74 mm[Hg] [facility] - diastolic 15:30:00 [facility] height 2021-04-20 59 [in_i] [facility] 15:30:00 [facility] weight 2021-04-20 168.5 [lb_av] [facility] - 15:30:00 [facility] temperature 2021-04-20 97.5 [degF] [facility] - 15:30:00 [facility] Systolic blood 2021-03-08 145 mm[Hg] [facility] pressure 20:03:00 [facility] Diastolic blood 2021-03-08 82 mm[Hg] [facility] pressure 20:03:00 [facility] Heart rate 2021-03-08 83 /min [facility] 20:03:00 [facility] Body temperature 2021-03-08 36.06 [place] [facility] 20:03:00 [facility] Body height 2021-03-08 149.9 cm [facility] 20:03:00 [facility] Body weight 2021-03-08 73.301 kg [facility] 20:03:00 [facility] BMI 2021-03-08 32.64 kg/m2 [facility] 20:03:00 [facility] Oxygen saturation 2021-03-08 96 /min [facility] Arterial blood 20:03:00 [facility] Pulse oximetry [facility] Systolic blood 2021-02-07 131 mm[Hg] [facility] pressure 20:47:00 [facility] Diastolic blood 2021-02-07 61 mm[Hg] [facility] pressure 20:47:00 [facility] Heart rate 2021-02-07 86 /min [facility] 20:47:00 [facility] Body temperature 2021-02-07 36.61 [place] [facility] 20:47:00 [facility] Body height 2021-02-07 149.9 cm University [facility] 20:47:00 [facility] Body weight 2021-02-07 77.111 kg [facility] 20:47:00 [facility] BMI 2021-02-07 34.34 kg/m2 [facility] 20:47:00 [facility] Systolic blood 2021-02-04 157 mm[Hg] [facility] pressure 22:01:00 [facility] Diastolic blood 2021-02-04 78 mm[Hg] [facility] pressure 22:01:00 [facility] Heart rate 2021-02-04 66 /min [facility] 21:58:00 [facility] Body temperature 2021-02-04 35.67 [place] [facility] 21:58:00 [facility] Respiratory rate 2021-02-04 17 /min [facility] 21:58:00 [facility] Body height 2021-02-04 149.9 cm [facility] 21:58:00 [facility] Body weight 2021-02-04 75.751 kg [facility] 21:58:00 [facility] BMI 2021-02-04 33.73 kg/m2 [facility] 21:58:00 [facility] Oxygen saturation 2021-02-04 98 /min [facility] in Arterial blood 21:58:00 [facility] by Pulse oximetry Branch Systolic blood 2021-01-25 162 mm[Hg] [facility] pressure 20:01:00 [facility] Diastolic blood 2021-01-25 54 mm[Hg] [facility] pressure 20:01:00 [facility] Heart rate 2021-01-25 60 /min [facility] 19:53:00 [facility] Respiratory rate 2021-01-25 16 /min [facility] 19:53:00 [facility] Body weight 2021-01-25 76.658 kg University [facility] 19:53:00 [facility] BMI 2021-01-25 34.13 kg/m2 [facility] 19:53:00 [facility] Oxygen saturation 2021-01-25 96 /min [facility] in Arterial blood 19:53:00 [facility] by Pulse oximetry Branch Systolic blood 2020-11-14 139 mm[Hg] [facility] pressure 21:00:00 [facility] Diastolic blood 2020-11-14 55 mm[Hg] [facility] pressure 21:00:00 [facility] Heart rate 2020-11-14 61 /min [facility] 21:00:00 [facility] Respiratory rate 2020-11-14 16 /min [facility] 21:00:00 [facility] Oxygen saturation 2020-11-14 95 /min [facility] in Arterial blood 21:00:00 [facility] by Pulse oximetry Branch Body temperature 2020-11-14 36.72 [place] [facility] 18:42:00 [facility] Body weight 2020-11-14 75.751 kg University of 18:42:00 [facility] BMI 2020-11-14 33.73 kg/m2 [facility] 18:42:00 [facility] Systolic blood 2020-11-09 152 mm[Hg] [facility] pressure 16:31:00 [facility] Branch Diastolic blood 2020-11-09 79 mm[Hg] [facility] pressure 16:31:00 [facility] Heart rate 2020-11-09 65 /min [facility] 16:31:00 [facility] Body temperature 2020-11-09 36.06 [place] [facility] 16:31:00 [facility] Respiratory rate 2020-11-09 18 /min [facility] 16:31:00 [facility] Body height 2020-11-09 149.9 cm University [facility] 16:31:00 [facility] Body weight 2020-11-09 76.204 kg University [facility] 16:31:00 [facility] BMI 2020-11-09 33.93 kg/m2 [facility] 16:31:00 [facility] Oxygen saturation 2020-11-09 99 /min [facility] in Arterial blood 16:31:00 [facility] Pulse [facility] Systolic blood 2020-09-28 131 mm[Hg] [facility] pressure 15:39:00 [facility] Diastolic blood 2020-09-28 67 mm[Hg] [facility] pressure 15:39:00 [facility] Heart rate 2020-09-28 62 /min [facility] 15:39:00 [facility] Body temperature 2020-09-28 36.22 [place] [facility] 15:39:00 [facility] Respiratory rate 2020-09-28 18 /min [facility] 15:39:00 [facility] Body height 2020-09-28 149.9 cm University of 15:39:00 [facility] Body weight 2020-09-28 74.254 kg University [facility] 15:39:00 [facility] BMI 2020-09-28 33.06 kg/m2 [facility] 15:39:00 [facility] Oxygen saturation 2020-09-28 99 /min [facility] in Arterial blood 15:39:00 [facility] Pulse oxim[facility] Systolic blood 2020-09-21 136 mm[Hg] [facility] pressure 19:16:00 [facility] Diastolic blood 2020-09-21 63 mm[Hg] [facility] pressure 19:16:00 [facility] Heart rate 2020-09-21 62 /min [facility] 19:16:00 [facility] Body temperature 2020-09-21 36.67 [place] [facility] 19:11:00 [facility] Body height 2020-09-21 149.9 cm University [facility] 19:11:00 [facility] Body weight 2020-09-21 74.844 kg University of 19:11: [facility] BMI 2020-09-21 33.33 kg/m2 [facility] 19:11:00 [facility] Systolic blood 2020-08-31 142 mm[Hg] [facility] pressure 04:35:10 [facility] Diastolic blood 2020-08-31 55 mm[Hg] [facility] pressure 04:35:10 [facility] Heart rate 2020-08-31 67 /min [facility] 04:35:10 [facility] Body temperature 2020-08-31 37.11 [place] of 04:35:10 [facility] Respiratory rate 2020-08-31 16 /min [facility] 04:35:10 [facility] Oxygen saturation 2020-08-31 96 /min [facility] in Arterial blood 04:35:10 [facility] by Pulse oximetry [facility] Body height 2020-08-31 149.9 cm University [facility] 00:44:00 [facility] Body weight 2020-08-31 76.658 kg University of 00:44:00 [facility] BMI 2020-08-31 34.13 kg/m2 [facility] 00:44:00 [facility] Systolic blood 2020-08-23 120 mm[Hg] [facility] pressure 22:47:00 [facility] Diastolic blood 2020-08-23 63 mm[Hg] [facility] pressure 22:47:00 [facility] Heart rate 2020-08-23 62 /min [facility] 22:47:00 [facility] Body temperature 2020-08-23 36.72 [place] [facility] 22:47:00 [facility] Body height 2020-08-23 149.9 cm University of 22:47:00 [facility] Body weight 2020-08-23 76.658 kg University [facility] 22:47:00 [facility] BMI 2020-08-23 34.13 kg/m2 [facility] 22:47:00 [facility] Systolic blood 2020-08-11 114 mm[Hg] [facility] pressure 21:20:00 [facility] Diastolic blood 2020-08-11 58 mm[Hg] [facility] pressure 21:20:00 [facility] Heart rate 2020-08-11 64 /min [facility] 21:20:00 [facility] Respiratory rate 2020-08-11 19 /min [facility] 21:20:00 [facility] Body height 2020-08-11 149.9 cm [facility] 21:20:00 [facility] Body weight 2020-08-11 76.204 kg University of 21:20:00 [facility] BMI 2020-08-11 33.93 kg/m2 University [facility] 21:20:00 [facility] Oxygen saturation 2020-08-11 95 /min [facility] in Arterial blood 21:20:00 [facility] Pulse oxim[facility] Systolic blood 2020-08-09 124 mm[Hg] [facility] pressure 20:49:00 [facility] Diastolic blood 2020-08-09 60 mm[Hg] [facility] pressure 20:49:00 [facility] Heart rate 2020-08-09 64 /min [facility] 20:49:00 [facility] Respiratory rate 2020-08-09 19 /min [facility] 20:49:00 [facility] Body height 2020-08-09 149.9 cm [facility] 20:49:00 [facility] Body weight 2020-08-09 76.204 kg [facility] 20:49:00 [facility] BMI 2020-08-09 33.93 kg/m2 [facility] 20:49:00 [facility] Oxygen saturation 2020-08-09 96 /min [facility] in Arterial blood 20:49:00 [facility] Pulse oxim[facility] Systolic blood 2020-07-09 129 mm[Hg] [facility] pressure 17:01:00 [facility] Diastolic blood 2020-07-09 66 mm[Hg] [facility] pressure 17:01:00 [facility] Heart rate 2020-07-09 61 /min [facility] 17:01:00 [facility] Respiratory rate 2020-07-09 18 /min [facility] 17:01:00 [facility] Body height 2020-07-09 149.9 cm [facility] 17:01:00 [facility] Body weight 2020-07-09 76.204 kg University [facility] 17:01:00 [facility] BMI 2020-07-09 33.93 kg/m2 [facility] 17:01:00 [facility] Systolic blood 2020-07-07 132 mm[Hg] [facility] pressure 19:25:00 [facility] Diastolic blood 2020-07-07 73 mm[Hg] [facility] pressure 19:25:00 [facility] Heart rate 2020-07-07 68 /min [facility] 19:25:00 [facility] Respiratory rate 2020-07-07 19 /min [facility] 19:25:00 [facility] Body height 2020-07-07 149.9 cm [facility] 19:25:00 [facility] Body weight 2020-07-07 74.844 kg [facility] 19:25:00 [facility] BMI 2020-07-07 33.33 kg/m2 [facility] 19:25:00 [facility] Oxygen saturation 2020-07-07 97 /min [facility] in Arterial blood 19:25:00 [facility] by Pulse oximetry Branch Body height 2020-06-21 149.9 cm [facility] 20:25:00 [facility] Body weight 2020-06-21 77.111 kg [facility] 20:25:00 [facility] BMI 2020-06-21 34.34 kg/m2 [facility] 20:25:00 [facility] Systolic blood 2020-06-09 115 mm[Hg] [facility] pressure 19:34:00 [facility] Diastolic blood 2020-06-09 60 mm[Hg] [facility] 19:34:00 [facility] Heart rate 2020-06-09 76 /min [facility] 19:34:00 [facility] Respiratory rate 2020-06-09 19 /min [facility] 19:34:00 [facility] Body height 2020-06-09 149.9 cm [facility] 19:34:00 [facility] Body weight 2020-06-09 75.978 kg [facility] 19:34:00 [facility] BMI 2020-06-09 33.83 kg/m2 [facility] 19:34:00 [facility] Oxygen saturation 2020-06-09 95 /min [facility] in Arterial blood 19:34:00 [facility] by Pulse oximetry [facility] Systolic blood 2020-06-07 144 mm[Hg] patient has not [facility] pressure 15:24:00 taken bp [facility] Diastolic blood 2020-06-07 79 mm[Hg] patient has not [facility] pressure 15:24:00 taken bp [facility] Heart rate 2020-06-07 93 /min [facility] 15:24:00 [facility] Body temperature 2020-06-07 36.67 [place] [facility] 15:24:00 [facility] Body height 2020-06-07 149.9 cm [facility] 15:24:00 [facility] Body weight 2020-06-07 76.114 kg [facility] 15:24:00 [facility] BMI 2020-06-07 33.89 kg/m2 [facility] 15:24:00 [facility] Systolic blood 2020-06-03 142 mm[Hg] [facility] pressure 22:00:00 [facility] Diastolic blood 2020-06-03 64 mm[Hg] [facility] 22:00:00 [facility] Heart rate 2020-06-03 80 /min [facility] :00:00 [facility] Body temperature 2020-06-03 37.22 [place] [facility] 22:00:00 [facility] Respiratory rate 2020-06-03 15 /min [facility] :00:00 [facility] Oxygen saturation 2020-06-03 98 /min [facility] in Arterial blood 22:00:00 [facility] P[facility] Body weight 2020-06-03 68.04 kg [facility] 20:19:00 [facility] BMI 2020-06-03 30.30 kg/m2 [facility] 20:19:00 [facility] Systolic blood 2020-05-10 129 mm[Hg] [facility] pressure 19:25:00 [facility] Diastolic blood 2020-05-10 79 mm[Hg] [facility] 19:25:00 [facility] Heart rate 2020-05-10 85 /min [facility] 19:25:00 [facility] Body temperature 2020-05-10 36.33 [place] [facility] 19:25:00 [facility] Body height 2020-05-10 149.9 cm [facility] 19:25:00 [facility] Body weight 2020-05-10 75.116 kg [facility] 19:25:00 [facility] BMI 2020-05-10 33.45 kg/m2 [facility] 19:25:00 [facility] Oxygen saturation 2020-05-10 97 /min [facility] in Arterial blood 19:25:00 [facility] Systolic blood 2020-02-26 134 mm[Hg] [facility] pressure 19:37:00 [facility] Diastolic blood 2020-02-26 72 mm[Hg] [facility] pressure 19:37:00 [facility] Heart rate 2020-02-26 71 /min [facility] 19:37:00 [facility] Respiratory rate 2020-02-26 19 /min [facility] 19:37:00 [facility] Body height 2020-02-26 149.9 cm [facility] 19:37:00 [facility] Body weight 2020-02-26 75.751 kg [facility] 19:37:00 [facility] BMI 2020-02-26 33.73 kg/m2 [facility] 19:37:00 [facility] Oxygen saturation 2020-02-26 99 /min [facility] in Arterial blood 19:37:00 [facility] by Pulse oximetry Branch Heart rate 2019-12-09 90 /min [facility] :40:00 [facility] Body temperature 2019-12-09 36.56 [place] [facility] :40:00 [facility] Respiratory rate 2019-12-09 18 /min [facility] :40:00 [facility] Oxygen saturation 2019-12-09 95 /min [facility] in Arterial blood 21:40:00 [facility] by Pulse oximetry Branch Systolic blood 2019-12-09 122 mm[Hg] [facility] pressure 17:00:00 [facility] Diastolic blood 2019-12-09 65 mm[Hg] [facility] pressure 17:00:00 [facility] Body weight 2019-12-09 74.707 kg [facility] :30:00 [facility] BMI 2019-12-09 33.27 kg/m2 [facility] 05:30:00 [facility] [facility] Body height 2019-12-07 149.9 cm University of 05:30:00 [facility] Respiratory rate 2019-11-15 16 /min University of 02:46:00 [facility] Oxygen saturation 2019-11-15 97 /min University of in Arterial blood 02:46:00 [facility] by Pulse oximetry Branch Systolic blood 2019-11-15 159 mm[Hg] University of pressure 02:24:00 [facility] Diastolic blood 2019-11-15 72 mm[Hg] University o f pressure 02:24:00 [facility] Heart rate 2019-11-15 75 /min University of 02:24:00 [facility] Body temperature 2019-11-14 37 [place] University of 23:50:00 [facility] Body height 2019-11-14 149.9 cm University of :50:00 [facility] Body weight 2019-11-14 74.844 kg University of :50:00 [facility] BMI 2019-11-14 33.33 kg/m2 University of 23:50:00 [facility] Systolic blood 2019-11-09 136 mm[Hg] University of pressure 01:04:00 [facility] Diastolic blood 2019-11-09 61 mm[Hg] University o f pressure 01:04:00 [facility] Heart rate 2019-11-09 80 /min University of 01:03:00 [facility] Body temperature 2019-11-09 36.67 [place] University of 01:03:00 [facility] Respiratory rate 2019-11-09 20 /min University of 01:03:00 [facility] Body height 2019-11-09 149.9 cm University of 01:03:00 [facility] Body weight 2019-11-09 76.658 kg University of 01:03:00 [facility] BMI 2019-11-09 34.13 kg/m2 University of 01:03:00 [facility] Oxygen saturation 2019-11-09 95 /min [facility] in Arterial blood 01:03:00 [facility] Pulse oximetry Branch Systolic blood 2019-10-30 156 mm[Hg] University of pressure 16:21:00 [facility] Diastolic blood 2019-10-30 80 mm[Hg] University o f pressure 16:21:00 [facility] Heart rate 2019-10-30 77 /min University of 15:40:00 [facility] Body temperature 2019-10-30 36.61 [place] University of 15:40:00 [facility] Body height 2019-10-30 149.9 cm University of 15:40:00 [facility] Body weight 2019-10-30 76.204 kg University of 15:40:00 [facility] BMI 2019-10-30 33.93 kg/m2 University of 15:40:00 [facility] Systolic blood 2019-06-05 125 mm[Hg] University of pressure 18:17:00 [facility] Diastolic blood 2019-06-05 75 mm[Hg] University o f pressure 18:17:00 [facility] Heart rate 2019-06-05 80 /min University of 18:17:00 [facility] Body temperature 2019-06-05 36.67 [place] University of 18:17:00 [facility] Respiratory rate 2019-06-05 18 /min University of 18:17:00 [facility] Body height 2019-06-05 149.9 cm University of 18:17:00 [facility] Body weight 2019-06-05 74.844 kg University of 18:17:00 [facility] BMI 2019-06-05 33.33 kg/m2 University of 18:17:00 [facility] Systolic blood 2019-06-02 117 mm[Hg] University of pressure 23:21:00 [facility] Diastolic blood 2019-06-02 68 mm[Hg] University o f pressure 23:21:00 [facility] Heart rate 2019-06-02 64 /min University of 23:21:00 [facility] Body temperature 2019-06-02 36.61 [place] University of 23:21:00 [facility] Respiratory rate 2019-06-02 18 /min University of 23:21:00 [facility] Body height 2019-06-02 149.9 cm University of 23:21:00 [facility] Body weight 2019-06-02 74.571 kg University of 23:21:00 [facility] BMI 2019-06-02 33.20 kg/m2 University of 23:21:00 [facility] Oxygen saturation 2019-06-02 98 /min [facility] in Arterial blood 23:21:00 [facility] by Pulse oximetry Mica Systolic blood 2019-04-25 125 mm[Hg] University of pressure 18:26:00 [facility] Diastolic blood 2019-04-25 68 mm[Hg] University o f pressure 18:26:00 [facility] Heart rate 2019-04-25 71 /min University of 18:26:00 [facility] Body temperature 2019-04-25 36.94 [place] University of 18:26:00 [facility] Body height 2019-04-25 149.9 cm University of 18:26:00 [facility] Body weight 2019-04-25 75.297 kg University of 18:26:00 [facility] BMI 2019-04-25 33.53 kg/m2 University of 18:26:00 [facility] Heart rate 2022-02-15 63 /min [facility] 20:27:00 [facility] Body height 2022-02-15 149.9 cm [facility] 20:27:00 Hospital Body weight 2022-02-15 84.369 kg [facility] 20:27:00 Hospital BMI 2022-02-15 37.57 kg/m2 [facility] 20:27:00 Hospital Oxygen saturation 2022-02-15 99 /min [facility] in Arterial blood 20:27:00 [facility] by Pulse oximetry Respiratory rate 2022-01-11 14 /min [facility] 20:38:00 Hospital Height 2021-11-02 149.86 cm Ghazala hurley 16:40:00 Weight 2021-11-02 [facility] 16:40:00 BMI Calculated 2021-11-02 [facility] 16:40:00 Heart Rate 2021-11-02 [facility] 16:15:16 Systolic (mm Hg) 2021-11-02 [facility] 16:14:24 Diastolic (mm Hg) 2021-11-02 [facility] 16:14:24 Heart Rate 2021-11-02 [facility] 16:14:24 Height 2021-10-28 149.86 cm [facility] 20:36:00 Weight 2021-10-28 [facility] 20:36:00 BMI Calculated 2021-10-28 [facility] 20:36:00 Systolic (mm Hg) 2021-02-21 [facility] 20:30:00 Diastolic (mm Hg) 2021-02-21 [facility] ermann 20:30:00 Systolic (mm Hg) 2021-02-21 [facility] rmann 20:15:00 Diastolic (mm Hg) 2021-02-21 [facility] ermann 20:15:00 Systolic (mm Hg) 2021-02-21 [facility] rmann 20:00:00 Diastolic (mm Hg) 2021-02-21 [facility] ermann 20:00:00 Respitory Rate 2021-02-21 [facility] 19:45:00 Respitory Rate 2021-02-21 [facility] 19:30:00 Respitory Rate 2021-02-21 [facility] 19:15:00 Height 2021-02-17 149.86 cm [facility] 19:43:00 Weight 2021-02-17 [facility] 19:43:00 BMI Calculated 2021-02-17 [facility] 19:43:00 Procedures Procedure Date / Time Performing Clinician Source Performed AUTOMATED VISUAL FIELD, 2022-07-10 21:11:52 [facility] EXTENDED - OS - LEFT EYE AUTOMATED VISUAL FIELD, 2022-07-10 21:10:36 [facility] EXTENDED - OS - LEFT EYE AUTHORIZATION FOR RELEASE 2022-06-19 05:01:00 Doctor Unassigned, [facility] [place] [facility] PULMONARY FUNCTION TEST 2022-02-15 20:05:39 Christina Lucio [facility] AUTHORIZATION FOR RELEASE 2022-01-13 05:01:00 Doctor Unassigned, [facility] [place] [facility] MEDICATION CORRESPONDENCE 2021-04-27 05:01:00 Doctor Marelyssstacy, [facility] Name Medical Branch REFERRAL- REQUEST/RESPONSE 2021-03-07 05:01:00 Doctor Marelyssstacy , [facility] [place] [facility] MEDICATION CORRESPONDENCE 2021-02-09 05:01:00 Doctor Unassigned, [facility] [place] [facility] FERRITIN SERUM 2021-01-26 14:05:00 Jose Fraser [facility] THYROID STIMULATING 2021-01-26 14:05:00 Jose Fraser [facility] HORMONE [facility] Branch COMP. METABOLIC PANEL 2021-01-26 14:05:00 Jose Fraser [facility] ([id number]) Medical Mica LIPID PANEL ([id number])(TOTAL 2021-01-26 14:05:00 Jose Fraser [facility] CHOLESTEROL, [facility] TRIGLYCERIDES, HDL) IRON PANEL 2021-01-26 14:05:00 Jose Fraser [facility] CBC WITHOUT DIFF 2021-01-26 14:05:00 Jose Fraser [facility] GLYCOSYLATED HEMOGLOBIN 2021-01-26 14:05:00 Jose Fraser [facility] (A1C) [facility] CT ABDOMEN PELVIS W 2020-11-14 19:55:51 Patricia Shi [facility] CONTRAST [facility] URINALYSIS 2020-11-14 19:30:00 Patricia Shi [facility] COVID-19 (ID NOW RAPID 2020-11-14 19:06:00 Patricia Shi [facility] TESTING) Medical Branch LIPASE 2020-11-14 19:05:00 Patricia Shi [facility] TROPONIN I 2020-11-14 19:05:00 Jose Guadalupe Patricia [facility] HEPATIC FUNCTION PANEL 2020-11-14 19:05:00 Patricia Shi [facility] ([id number]) (ALB,T.PRO,BILI Medical Branch T,BU/BC,ALT,AST,ALK PHOS) BASIC METABOLIC PANEL (NA, 2020-11-14 19:05:00 Patricia Shi [facility] K, CL, CO2, GLUCOSE, BUN, Medica l Branch CREATININE, CA) CBC WITH DIFF 2020-11-14 19:05:00 Patricia Shi [place] [facility] PROTHROMBIN TIME / INR 2020-11-14 19:05:00 Patricia Shi [facility] ACTIVATED PARTIAL THRMPLAS 2020-11-14 19:05:00 Patricia Shi [facility] Medical Mica NOTICE OF PRIVACY 2020-11-14 18:26:59 Doctor Ger, [facility] PRACTICES [place] [facility] CONSENT/REFUSAL FOR 2020-11-14 18:26:36 Doctor Ger [facility] DIAGNOSIS AND TREATMENT [place] [facility] EXTERNAL PROVIDER RECORDS 2020-10-08 06:01:00 Doctor Cyr [facility] Medical Mica HOME HEALTH - OTHER 2020-10-06 06:01:00 Doctor Cyr [facility] Name Medical Mica ASSIGNMENT OF BENEFITS 2020-10-05 19:31:32 Doctor Cyr [facility] Medical Mica Lap Band removal 2020-09-17 00:00:00 [facility] PCI - Percutaneous 2020-09-17 00:00:00 [facility] coronary intervention CONSENT/REFUSAL FOR 2020-08-31 00:30:55 Doctor Cyr [facility] DIAGNOSIS AND TREATMENT [place] [facility] DEXA AXIAL (HIP AND SPINE) 2020-08-25 20:11:01 Jose Fraser [facility] Medical Mica XR HIPS 2 VW BILATERAL 2020-08-25 19:16:37 Jose Fraser [facility] Medical Mica DME/SUPPLY JUSTIFICATION 2020-08-11 06:01:00 Doctor Cyr [facility] Name Medical Mica SLEEP STUDY DATA REPORT 2020-07-17 05:01:00 Doctor Cyr [facility] Name Medical Mica COVID-19 (ID NOW RAPID 2020-06-11 19:31:00 Jose Fraser [facility] TESTING) Medical Branch ASSIGNMENT OF BENEFITS 2020-06-11 19:08:54 Doctor Unassigned, [facility] Medical Mica XR CHEST 1 VW COVID 2020-06-03 21:07:32 Ko Breen [facility] COVID-19 (ID NOW RAPID 2020-06-03 20:56:00 Ko Breen [facility] TESTING) Medical Branch TROPONIN I 2020-06-03 20:47:00 Ko Breen [facility] COMP. METABOLIC PANEL 2020-06-03 20:47:00 Ko Breen [facility] ([id number]) Medical Branch CBC WITH DIFF 2020-06-03 20:47:00 Ko Breen [facility] PROTHROMBIN TIME / INR 2020-06-03 20:47:00 Ko Breen [facility] N-TERMINAL PRO-BNP 2020-06-03 20:47:00 Ko Breen [facility] EKG-12 LEAD 2020-06-03 20:26:00 A[facility]i [facility] CONSENT/REFUSAL FOR 2020-06-03 20:08:11 Doctor Unassigned, [facility] DIAGNOSIS AND TREATMENT [place] [facility] INSURANCE CORRESPONDENCE 2020-04-12 05:01:00 Doctor Ger, [facility] REFERRAL- REQUEST/RESPONSE 2020-02-16 05:01:00 Doctor Unassstacy , [facility] REFERRAL- REQUEST/RESPONSE 2020-01-12 05:01:00 Doctor Unajonatan , [facility] Name [facility] POCT GLUCOSE (AUTOMATED) 2019-12-09 21:00:00 Kelly Mittal [facility] POCT GLUCOSE (AUTOMATED) 2019-12-09 16:34:00 Kelly Mittal [facility] POCT GLUCOSE (AUTOMATED) 2019-12-09 12:27:00 Kelly Mittal [facility] THYROID STIMULATING 2019-12-09 10:55:00 Kelly Mittal [facility] HORMONE [facility] BASIC METABOLIC PANEL (NA, 2019-12-09 10:55:00 Kelly Mittal [facility] K, CL, CO2, GLUCOSE, BUN, Medica l Branch CREATININE, CA) CBC WITH DIFFERENTIAL 2019-12-09 10:55:00 EdionKelly [place] [facility] ACTIVATED PARTIAL THRMPLAS 2019-12-09 10:55:00 EdKelly andrade U niversity of [facility] POCT GLUCOSE (AUTOMATED) 2019-12-09 00:20:00 EdionKelly [place] Uni versity of [facility] POCT GLUCOSE (AUTOMATED) 2019-12-08 20:54:00 EdionKelly [place] Uni versity of [facility] ACTIVATED PARTIAL THRMPLAS 2019-12-08 18:56:00 Migel Vick niversvito [facility] POCT GLUCOSE (AUTOMATED) 2019-12-08 16:42:00 EdKelly andrade Uni versity of [facility] POCT GLUCOSE (AUTOMATED) 2019-12-08 12:16:00 EdKelly andrade [facility] WITH DIFFERENTIAL 2019-12-08 06:36:00 [facility] ACTIVATED PARTIAL THRMPLAS 2019-12-08 06:36:00 EdKelly andrade U niversity of [facility] POCT GLUCOSE (AUTOMATED) 2019-12-08 00:53:00 EdKelly andrade [facility] ACTIVATED PARTIAL THRMPLAS 2019-12-07 21:53:00 EdKelly andrade U niversity [facility] POCT GLUCOSE (AUTOMATED) 2019-12-07 21:43:00 [facility] URINE CULTURE 2019-12-07 18:37:00 Miegl Vick o f [facility] POCT GLUCOSE (AUTOMATED) 2019-12-07 16:46:00 EdKelly andrade Uni versity of [facility] POCT GLUCOSE (AUTOMATED) 2019-12-07 13:15:00 Kelly Mittal [facility] GLYCOSYLATED HEMOGLOBIN 2019-12-07 10:56:00 [facility] ACTIVATED PARTIAL THRMPLAS 2019-12-07 10:56:00 [facility] / INR 2019-12-07 03:44:00 Jesse Gee [facility] ACTIVATED PARTIAL THRMPLAS 2019-12-07 03:44:00 Jesse Gee [facility] BALAJI [facility] LAB ONLY CORONAVIRUS 2019-12-07 03:08:00 Everton Scott [facility] COVID-19 PCR [facility] CT CHEST PULMONARY 2019-12-07 03:03:46 Everton Scott [facility] ANGIOGRAM Medical Branch URINALYSIS 2019-12-07 02:34:00 Everton Scott [facility] XR CHEST 2 VW 2019-12-07 02:05:16 Everton Scott [facility] EKG-12 LEAD 2019-12-07 01:50:52 Jesse Gee [facility] LIPASE 2019-12-07 01:49:00 Everton Scott [facility] TROPONIN I 2019-12-07 01:49:00 Everton Scott [facility] HEPATIC FUNCTION PANEL 2019-12-07 01:49:00 Everton Scott [facility] ([id number]) (ALB,T.PRO,BILI [facility] T,BU/BC,ALT,AST,ALK PHOS) BASIC METABOLIC PANEL (NA, 2019-12-07 01:49:00 Everton Scott [facility] K, CL, CO2, GLUCOSE, BUN, Medica l Branch CREATININE, CA) CBC WITH DIFFERENTIAL 2019-12-07 01:49:00 Everton Scott [facility] ADC,CLC OR LCC ONLY - 2019-12-07 01:49:00 Everton Scott [facility] INFLUENZA A & B DIRECT Medical B ranch ANTIGEN EKG-12 LEAD 2019-12-07 01:43:35 Everton Scott [facility] HOSPITAL ADMISSION MISC - 2019-12-06 05:01:00 Doctor Unassigned, [facility] MEDICARE PATIENTS RIGHTS [place] [facility] IMPORTANT MESSAGE XR CHEST 2 VW 2019-11-15 00:28:12 Sara Avery [facility] ADC,CLC OR LCC ONLY - 2019-11-14 23:56:00 Sara Avery [facility] INFLUENZA A & B DIRECT Medical B [place] ANTIGEN NOTICE OF PRIVACY 2019-11-14 23:36:55 Doctor Ger, [facility] PRACTICES [place] [facility] CONSENT/REFUSAL FOR 2019-11-14 23:30:43 Doctor Cyr [facility] DIAGNOSIS AND TREATMENT [place] [facility] AUTHORIZATION FOR RELEASE 2019-11-12 06:01:00 Doctor Ger, [facility] [place] [facility] POCT FLU A AND B 2019-11-09 01:11:00 Jeffrey Ko [facility] (MOLECULAR) [facility] THYROID STIMULATING 2019-10-30 16:31:00 Jose Fraser [facility] HORMONE [facility] MICROALBUMIN URINE 2019-10-30 16:31:00 Jose Fraser [facility] COMP. METABOLIC PANEL 2019-10-30 16:31:00 Jose Fraser [facility] ([id number]) [facility] LIPID PANEL ([id number])(TOTAL 2019-10-30 16:31:00 Jose Fraser [facility] CHOLESTEROL, [facility] TRIGLYCERIDES, HDL) CBC WITH DIFFERENTIAL 2019-10-30 16:31:00 Jose Fraser [facility] GLYCOSYLATED HEMOGLOBIN 2019-10-30 16:31:00 Jose Fraser [facility] (A1C) [facility] DISCLOSURE AND CONSENT, 2019-06-05 05:01:00 Doctor Ger, [facility] MEDICAL AND SURGICAL [place] [facility] Bra nch PROCEDURES XR SPINE THORACIC 3 VW 2019-06-03 00:45:31 Selma Staley [facility] XR LUMBAR SPINE 3 VW 2019-06-03 00:45:22 Selma Staley [facility] Medical Mica EXTERNAL PROVIDER RECORDS 2019-05-25 05:01:00 Doctor Cyr, [facility] Name Medical Mica PNEUMOCOCCAL VACCINE, 2019-04-25 19:00:39 Jose Fraser [facility] 23-VALENT (PNEUMOVAX) Medical Br anch NO SHOW OR MISSED 2019-04-25 18:05:48 Doctor Cyr [facility] APPOINTMENT POLICY [place] Medical [facility] ACKNOWLEDGEMENT INSURANCE CORRESPONDENCE 2019-04-16 05:01:00 Doctor Unassigned, [facility] [place] [facility] Back surgery 2016-09-17 00:00:00 [facility] Tubal ligation [facility] Carpal tunnel [facility] release<sup>1</sup> Plan of Care Planned Activity Planned Date Details Comments Source Future Scheduled 2023-03-05 COVID-19 [facility]ACCINE [facility] 16:57:39 (#1) [code = COVID-19 VACCINE (#1)] Future Scheduled 2023-03-05 SHINGLES VACCINES [facility] 16:57:39 (1 of 2) [code = SHINGLES VACCINES (1 of 2)] Future Scheduled 2023-03-05 [facility]ITIS [facility] 16:57:39 VACCINES (1 of 3 - Risk 3-dose series) [code = HEPATITIS B VACCINES (1 of 3 - Risk 3-dose series)] Future Scheduled 2023-03-05 INFLUENZA VACCINE [facility] 16:57:39 [code = INFLUENZA VACCINE] Future Scheduled 2022-07-19 COVID-19 VACCINE [facility] 09:02:13 (#1) [code = COVID-19 VACCINE (#1)] Future Scheduled 2022-07-19 SHINGLES VACCINES [facility] Test 09:02:13 (1 of 2) [code = SHINGLES VACCINES (1 of 2)] Future Scheduled 2022-07-19 [facility]ITIS [facility] 09:02:13 VACCINES (1 of 3 - Risk 3-dose series) [code = HEPATITIS B VACCINES (1 of 3 - Risk 3-dose series)] Future Scheduled 2022-07-19 INFLUENZA VACCINE [facility] Test 09:02:13 [code = INFLUENZA VACCINE] Future Scheduled 2022-06-19 COVID-19 VACCINE [facility] Test 09:41:32 (#1) [code = COVID-19 VACCINE (#1)] Future Scheduled 2022-06-19 SHINGLES VACCINES [facility] Test 09:41:32 (1 of 2) [code = SHINGLES VACCINES (1 of 2)] Future Scheduled 2022-06-19 HEPATITIS [facility] Test 09:41:32 VACCINES (1 of 3 - Risk 3-dose series) [code = HEPATITIS B VACCINES (1 of 3 - Risk 3-dose series)] Future Scheduled 2022-06-19 INFLUENZA VACCINE [facility] Test 09:41:32 [code = INFLUENZA VACCINE] Encounters Start End Encounter Admission Attending Care Care Encounter Source Date/Time Date/Time Type Type Clinicians Facility Department ID 2022-10-06 Outpatient JULIANNE, [facility] [id number] [facility] 17:09:30 ROBERTO 2022-09-22 Outpatient Gomez, STLMLC STLC [id number] Common 11:31:01 Alber [facility] 2022-09-01 Outpatient Gomez, STLMLC STLC [id number] Common 09:02:02 Alber [facility] 2022-07-26 Outpatient Gomez, STLMLC STLC [id number] Common 10:54:04 Alber [facility] 2022-05-24 Outpatient Gomez, STLMLC STLC [id number] Common 15:31:00 Alber [facility] 2022-05-23 Outpatient Gomez, STLMLC STLC [id number] Common 13:30:02 Alber [facility] 2022-05-17 Outpatient Gomez, STLMLC STLC [id number] Common 10:01:02 Alber [facility] 2021-12-26 Outpatient Gomez, STLMLC STLC [id number] Common 13:29:02 Alber [facility] 2021-12-23 Outpatient Gomez, STLMLC STLC [id number] Common 11:37:02 Alber [facility] 2021-11-29 Outpatient Gomez, STLMLC ST[facility] [id number] Common 10:03:01 Alber [facility] 2021-10-25 Outpatient Gomez, STLMLC STLC [id number] Common 13:49:01 Alber [facility] 2021-10-12 Outpatient Gomez, STLMLC [facility] [id number] Common 14:23:26 Alber [address] [facility] 2021-10-12 Outpatient Gomez, STLMLC [facility] [id number] Common 14:17:00 [facility] [id number] [facility] 2021-07-17 Emergency [facility] [id number] Univers 01:55:47 [facility] 2021-07-16 Emergency [facility] [id number] [facility] [id number] Univers 18:08:36 [facility] 2021-07-14 Outpatient Dulce JAMES, [facility] [id number] Univers 17:19:04 CRYSTAL [facility] 2023-01-19 2023-01-19 Office Marcello, 1.2.840.1 [id number] Methodi 10:00:00 11:07:31 Visit Ofelia [address]192.1.[address] 3.430.2.7 Hospit a .3.187691 l .8 2023-01-19 2023-01-19 Outpatient MARCELLO, [facility] [id number] [place] 00:00:00 00:00:[address] OF[address] 2023-01-08 2023-01-08 Procedure Marcello, 1.2.840.1 [id number] Methodi 11:00:00 11:57:50 visit Ofelia 73741.1.[address] 3.430.2.7 Hospit a .3.077556 l .8 2023-01-08 2023-01-08 Outpatient MARCELLO, [facility] [id number] [place] 00:00:00 00:00:00 OFEL[address] 2022-12-27 2022-12-27 Outpatient KITTY STEFFI, [facility] [id number] [place] 19:14:00 19:14:00 BRUN[facility] [id number] [facility] 2022-09-26 OFFICE STLMLC STLMLC [id number] Co mmon 00:00:00 00:00:00 VISIT Spirit ESTAB PT - CHI LEVEL 4 [facility] 2022-09-22 2022-09-22 (TEL) STLMLC STLMLC [id number] Co mmon 00:00:00 00:00:00 [facility] 2022-07-25 2022-07-25 (HOSP F/U) STLMLC STLMLC [id number] Common 00:00:00 00:00:00 [facility] - [facility] 2022-07-10 2022-07-10 Office Marcello, 1.2.840.1 [id number] Methodi 14:45:00 16:19:02 Visit Ofelia [address]34.1.[address] 3.430.2.7 Hospit a .3.142604 l .8 2022-07-10 2022-07-10 Office Marcello, 1.2.840.1 [id number] Methodi 14:45:00 16:19:02 Visit Ofelia [address]448.1.[address] 3.430.2.7 Hospit a .3.291737 l .8 2022-07-10 2022-07-10 Travel 1.2.840.1 [id number] [id number] Methodi 00:00:00 00:00:[address] 3.430.2.7 0.2.7.3.698 Ho spita .3.251846 084.8 l .8 2022-07-10 2022-07-10 Travel 1.2.840.1 1.2.745.436 [id number] Methodi 00:00:00 00:00:[address] 3.430.2.7 0.2.7.3.698 Ho spita .3.912369 084.8 l .8 2022-07-06 2022-07-06 (TEL) STLMLC STLMLC [id number] Co mmon 00:00:00 00:00:00 [facility] 2022-07-06 2022-07-06 (HOSP F/U) STLMLC STLMLC [id number] Common 00:00:00 00:00:00 [facility] [facility] 2022-06-30 2022-06-30 (TEL) STLMLC STLMLC [id number] Co mmon 00:00:00 00:00:00 [facility] 2022-06-19 2022-06-19 Orders Doctor MARTHA 1.2.840.114 [id number] Univers 00:00:00 00:00:00 Only Unassigned, MELIZA 350.1.13.10 ity of [place] [facility] 4.2.7.2.686 Edward as [phone] [place] [address] [place] 2022-05-19 2022-05-19 (TEL) STLMLC STLMLC [id number] Co mmon 00:00:00 00:00:00 [facility] 2022-05-18 2022-05-18 (TEL) STLMLC STLMLC [id number] Co mmon 00:00:00 00:00:00 [facility] 2022-05-17 2022-05-17 OL DIG E/M STLMLC STLMLC [id number] Common 00:00:00 00:00:00 [facility] 11-20 Spir it MIN [facility] 2022-05-17 2022-05-17 (TEL) STLMLC STLMLC [id number] Co mmon 00:00:00 00:00:00 [facility] 2022-04-27 2022-04-27 (TEL) STLMLC STLMLC [id number] Co mmon 00:00:00 00:00:00 [facility] 2022-04-25 2022-04-25 OFFICE STLMLC STLMLC [id number] Co mmon 00:00:00 00:00:00 VISIT [facility] LEVEL 4 [facility] 2022-02-15 2022-02-15 Office Khadijah 1.2.840.1 [id number] Methodi 15:45:00 16:54:20 Visit Christina 19305.1.[address] 3.430.2.7 Hospit a .3.957465 l .8 2022-02-15 2022-02-15 Clinical Ivette, 1.2.840.1 [id number] 50893 Methodi 15:15:00 16:54:02 Support Viola 20410.1.[address] 3.430.2.7 Hospit a .3.558268 l .8 2022-02-15 2022-02-15 Clinical Ivette, 1.2.840.1 [id number] 80057 Methodi 15:00:00 16:53:51 Support Viola 65311.1.[address] 3.430.2.7 Hospit a .3.522917 l .8 2022-02-15 2022-02-15 Travel 1.2.840.1 1.2.622.303 4071 361661 Methodi 00:00:00 00:00:[address] 3.430.2.7 0.2.7.3.698 Ho spita .3.488585 084.8 l .8 2022-01-13 2022-01-13 Orders Doctor MARTHA 1.2.840.114 [id number] Univers 00:00:00 00:00:00 Only Unassigned, MELIZA 350.1.13.10 ity of [place] [facility] 4.2.7.2.686 Edward as [phone] [place] [address] [address] 2022-01-11 2022-01-11 Office Oolca, 1.2.840.1 [id number] 6588 Methodi 15:30:00 16:09:44 Visit Christina 61434.1.[address] 3.430.2.7 Hospit a .3.668148 l .8 2022-01-11 2022-01-11 Travel 1.2.840.1 1.2.303.467 0922 936983 Methodi 00:00:00 00:00:[address] 3.430.2.7 0.2.7.3.698 Ho spita .3.013263 084.8 l .8 2022-01-02 2022-01-02 Justo Fraser PRANGELA 1.2.840.114 [id number] 776 Univers 00:00:00 00:00:00 Wondiful A [place] 350.1.13.10 ity of [place].2.[place] PROFESS[place] [phone] Mi nikko[address] 2021-12-28 2021-12-28 [facility] [id number] Co mmon 00:00:00 00:00:00 VISIT EST Spir it PT LEVEL 3 - [facility] 2021-12-22 2021-12-22 (TEL) [facility] [id number] Co mmon 00:00:00 00:00:00 [facility] 2021-12-06 2021-12-06 Justo Fraser [facility] 1.2.840.114 [id number] Univers 00:00:00 00:00:00 Wondiful A [place] 350.1.13.10 ity of [place] [phone] [address] 2021-11-29 2021-11-29 [facility] [id number] Common 00:00:00 00:00:00 EST AGE 65 Spi rit & OVER - [facility] 2021-11-18 2021-11-18 (TEL) [facility] [id number] Co mmon 00:00:00 00:00:00 [facility] 2021-11-11 2021-11-11 Justo Fraser PRANGELA 1.2.840.114 [id number] Univers 00:00:00 00:00:00 Wondiful A HEALTH 350.1.13.10 ity of [place] 4.2.7.2.686 Edward as PROFESSIO [phone] [address] OFFICE BUILDING ONE 2021-11-03 2021-11-03 [facility] [id number] 475 Memoria 16:15:00 16:15:00 r Chong 01 [facility] 2021-11-03 2021-11-03 PreReg nullFlavo [facility] [id number] 475 Memoria 16:15:00 16:15:00 r [place] 01 [facility] 2021-11-03 2021-11-03 Outpatient Julianne, [facility] [id number] 10:15:00 10:15:00 Roberto 01 Ahmad 2021-11-02 2021-11-02 Outpatient JULIANNE, [facility] 7501 [facility] 12:41:00 23:59:00 ROBERTO 2021-11-01 2021-11-02 Outpatient nullFlavo [facility]gent [id number] Memoria 19:10:00 05:59:59 r Care Clear 00 l [facility] 2021-11-01 2021-11-02 Outpatient nullFlavo MH Urgent [id number] Memoria 19:10:00 05:59:59 r Care Clear 00 l [facility] 2021-11-01 2021-11-01 Outpatient MHMG MHMG [id number] 13:10:00 23:59:59 00 2021-11-01 2021-11-01 Outpatient MHIE MHIE [id number] Memoria 13:10:00 13:10:00 00 [facility] 2021-10-26 2021-10-26 OFFICE STLMLC STLMLC [id number] Co mmon 00:00:00 00:00:00 VISIT EST Spir it PT LEVEL 3 - [facility] 2021-09-28 2021-09-28 OFFICE STLMLC STLMLC [id number] Co mmon 00:00:00 00:00:00 VISIT Spirit ESTAB PT - [facility] LEVEL 4 [facility] 2021-09-02 2021-09-02 (TEL) STLMLC STLMLC [id number] Co mmon 00:00:00 00:00:00 Spirit - [facility] 2021-08-29 2021-08-29 OFFICE STLMLC STLMLC [id number] Co mmon 00:00:00 00:00:00 VISIT Spirit ESTAB PT - CHI LEVEL 4 [facility] 2021-08-25 2021-08-25 (TEL) STLMLC STLMLC [id number] Co mmon 00:00:00 00:00:00 [facility] 2021-08-03 2021-08-03 (TEL) STLMLC STLMLC [id number] Co mmon 00:00:00 00:00:00 [facility] 2021-07-21 2021-07-21 (TEL) STLMLC STLMLC [id number] Co mmon 00:00:00 00:00:00 [facility] 2021-07-19 2021-07-19 OFFICE STLMLC STLMLC [id number] Co mmon 00:00:00 00:00:00 VISIT [facility] PT - CHI LEVEL 4 [facility] 2021-07-06 2021-07-06 (TEL) STLMLC STLMLC [id number] Co mmon 00:00:00 00:00:00 [facility] 2021-06-27 2021-06-27 (TEL) STLMLC STLMLC [id number] Co mmon 00:00:00 00:00:00 [facility] 2021-06-27 2021-06-27 (TEL) STLMLC STLMLC [id number] Co mmon 00:00:00 00:00:00 [facility] 2021-05-19 2021-05-19 OFFICE STLMLC STLMLC [id number] Co mmon 00:00:00 00:00:00 VISIT [facility] PT - CHI LEVEL 4 [facility] 2021-05-16 2021-05-16 (TEL) STLMLC STLMLC [id number] Co mmon 00:00:00 00:00:00 [facility] 2021-05-04 2021-05-04 Justo Fraser PRANGELA 1.2.840.114 [id number] Univers 00:00:00 00:00:00 Jose [place].1.13.10 [place] 4.2.7.2.686 Jordy Almeida [phone] [address] 2021-05-02 2021-05-02 (TEL) STLMLC STLC [id number] Co mmon 00:00:00 00:00:00 [facility] 2021-04-27 2021-04-27 Orders Doctor MARTHA 1.2.840.114 [id number] Univers 00:00:00 00:00:00 Only Unassigned, MELIZA 350.1.13.10 ity [place] [facility] 4.2.7.2.686 Edward as [phone] [address] 2021-04-20 2021-04-20 OFFICE STLC STLC [id number] Co mmon 00:00:00 00:00:00 VISIT NEW Spir it PT LEVEL 4 [facility] 2021-03-14 2021-03-14 Outpatient R VIDAL [facility] [id number] Univers 14:40:00 14:40:00 LUIS padron o [facility] 2021-03-08 2021-03-08 [facility] Fam Pob I [facility] 1.2. 840.114 [id number] Univers 15:45:57 16:05:57 Visit Evelio Ronalfarrukh [facility] 350.1.13.1 0 ity of [place] 4.2.7.2.686 Edward as Professio [phone] [address] Office [facility] 2021-03-08 2021-03-08 Office [facility] 1.2.840.114 [id number] Univers 14:56:34 15:26:34 Visit [facility] 350.1.13.10 i ty of [place] 4.2.7.2.686 Edward as Professio [phone] [address] Office [facility] 2021-03-08 2021-03-08 Outpatient R ALEXANDER [facility] [id number] Univers 15:00:00 15:00:00 EDWARD padron o f [facility] 2021-03-07 2021-03-07 Orders Doctor THOMAS 1.2.840.114 [id number] Univers 00:00:00 00:00:00 Only Unassigned, MELIZA 350.1.13.10 ity [place] [facility] 4.2.7.2.686 Edward as [phone] [address] 2021-03-05 2021-03-05 Refgaurang Morris[facility]UN[facility] 1.2.840.114 [id number] Univers 00:00:00 00:00:00 [facility] 350.1.13.10 it y of [place] 4.2.7.2.686 Edward as Professio [phone] [address] Office [facility] 2021-03-05 2021-03-05 Refgaurang [facility]UN[facility] 1.2.840.114 [id number] Univers 00:00:00 00:00:00 Wondiful A [place] 350.1.13.10 it[place] of [place] [phone] [address] 2021-02-22 2021-02-22 [facility] 1.2.840.114 [id number] Univers 00:00:00 00:00:00 Wonful A Health 350.1.13.10 ity of [place] 4.2.7.2.686 Edward as Professio [phone] [address] 2021-02-21 2021-02-21 Day [facility] [id number] Memoria 15:04:00 20:44:00 Surgery r [place] 00 l [facility] 2021-02-21 2021-02-21 Day [facility] [id number] 475 Memoria 15:04:00 20:44:00 Surgery r [place] 00 l [facility] 2021-02-21 2021-02-21 Outpatient EKAI ORTEGA EVERETT 7500 MH 10:04:00 15:44:00 [facility] 2021-02-21 2021-02-21 Outpatient AI Pineda [facility] [id number] 10:04:00 15:44:00 Obonor[place] 00 Imariabe 2021-02-21 2021-02-21 Outpatient AI Pineda [facility] [id number] 12:30:00 12:30:00 [place] 00 Imariabe 2021-02-09 2021-02-09 Orders Doctor MARTHA 1.2.840.114 [id number] Univers 00:00:00 00:00:00 Only Unassigned, MELIZA 350.1.13.10 ity of [place] [facility] 4.2.7.2.686 Edward as [phone] [address] 2021-02-07 2021-02-07 [facility] 1.2.840.114 [id number] Univers 15:40:09 15:55:09 Visit [facility] 350.1.13.10 it y of [place] 4.2.7.2.686 Edward as Professio [phone] [address] Office [facility] 2021-02-07 2021-02-07 Outpatient R SUNITA [facility] [id number] Univers 15:45:00 15:45:00 OMID [facility] 2021-02-07 2021-02-07 Case Evelio [facility] 1.2.840.114 [id number] Univers 00:00:00 00:00:00 Management Wonfarrukh Shah [facility] 350.1.13.10 ity of [place] 4.2.7.2.686 Edward as Professio [phone] [address] One 2021-02-04 2021-02-04 Urgent Provider, [employer] [facility] [employer] [facility] Urgent Care [facility] 1.2.840.114 [id number] Univers 16:53:21 17:45:02 Care Martha Horton [facility] 350.1.13.10 ity of [place] 4.2.7.2.686 Edward as Professio [phone] [address] Office Building One 2021-02-04 2021-02-04 Outpatient R RIHC [facility] [id number] Univers 17:00:00 17:00:00 MARTHA ewelina [facility] 2021-01-26 2021-01-26 Outpatient R [facility] [id number] Univers 09:40:00 09:40:00 vito [facility] 2021-01-26 2021-01-26 [facility] Fam Pob I [facility] 1.2. 840.114 [id number] Univers 08:47:10 09:15:12 Visit Ronal Fraserfarrukh [facility] 350.1.13.1 0 ity of [place] 4.2.7.2.686 Edward as Professio [phone] [address] 2021-01-25 2021-01-25 Office [facility] 1.2.840.114 [id number] Univers 14:45:18 15:28:27 Visit Wondiful A Health 350.1.13.10 ity of [place] 4.2.7.2.686 Edward as Professio [phone] [address] 2021-01-25 2021-01-25 Outpatient R EVELIO [facility] [id number] Univers 15:00:00 15:00:00 JOSE padron o f [facility] 2021-01-19 2021-01-19 Outpatient R SAKINA MILLAN [facility] [id number] Univers 14:00:00 14:00:00 SAKINA MILLAN ity of [facility] 2021-01-19 2021-01-19 Refill [facility] 1.2.840.114 [id number] Univers 00:00:00 00:00:00 Ronaldiful A [place] 350.1.13.10 ity of [place].2.[place] [phone] [address] 2020-12-07 2020-12-07 Outpatient R JAYLA [facility] [id number] Univers 10:15:00 10:15:00 SHEEBA padron o f [facility] 2020-12-01 2020-12-01 Refgaurang FraserUN[facility] 1.2.840.114 [id number] Univers 00:00:00 00:00:00 Wondiful A Health 350.1.13.10 ity of [place] 4.2.7.2.686 Edward as Professio [phone] [address] 2020-11-17 2020-11-17 Outpatient R SAKINA MILLAN [facility] [id number] Univers 14:30:00 14:30:00 SAKINA MILLAN ity of [facility] 2020-11-14 2020-11-14 Emergency Jose [facility]UN[facility] 1.2.522.020 [id number] Univers 12:38:00 15:59:00 Patricia Medina 350.1.13.10 i ty of [place]2.7.2.686 [place] [phone] [facility] 084 [address] 2020-11-14 2020-11-14 Orders Doctor MARTHA 1.2.840.114 [id number] Univers 00:00:00 00:00:00 Only Unassigned, MELIZA 350.1.13.10 [facility] [place] 4.2.7.2.686 Edward as [phone] [facility] 009 [address] 2020-11-09 2020-11-09 Office [facility] 1.2.840.114 [id number] Univers 10:21:15 11:08:18 Visit Sheeba Medina 350.1.13.10 ity of [place].7.2.[place] [phone] [facility] 205 [facility] 2020-11-09 2020-11-09 [facility] [id number] Univers 10:15:00 10:15:00 SHEEBA padron o f [facility] 2020-10-22 2020-10-22 Justo Fraser [facility] 1.2.840.114 [id number] Univers 00:00:00 00:00:00 Wondiful A Health 350.1.13.10 ity of [place] 4.2.7.2.686 Edward as Professio [phone] [facility] [address] Office Building One 2020-10-13 2020-10-13 Office Monty [facility] 1.2.430.857 [id number] Univers 14:30:00 15:00:00 Visit Sakina Medina 350.1.13.10 ity of [place].2.[place] [phone] Mi dical nal [address] [facility] 2020-10-13 2020-10-13 Outpatient R SAKINA MILLAN [facility] [id number] Univers 14:30:00 14:30:00 SAKINA MILLAN ity of [facility] 2020-10-09 2020-10-09 Patient Dontrell [facility] 1.2.840.114 [id number] Univers 00:00:00 00:00:00 Outreach Henry PRIMARY 350.1.13.10 i ty of [facility] 4.2.7.2.686 [place] [phone] Mi dical [address] 2020-10-08 2020-10-08 Orders Doctor MARTHA 1.2.840.114 [id number] Univers 00:00:00 00:00:00 Only Unassigned, MELIZA 350.1.13.10 ity of [place] HOSPITAL 4.2.7.2.686 Edward as [phone] [address] 2020-10-06 2020-10-06 Orders Doctor MARTHA 1.2.840.114 [id number] Univers 00:00:00 00:00:00 Only Unassigned, MELIZA 350.1.13.10 ity of [place] HOSPITAL 4.2.7.2.686 Edward as [phone] [address] 2020-10-05 2020-10-05 Outpatient R ROSAS [facility] [id number] Univers 14:00:00 14:00:00 SENDIL ity of [facility] 2020-10-05 2020-10-05 Orders Doctor THOMAS 1.2.840.114 [id number] Univers 00:00:00 00:00:00 Only Unassigned, MELIZA 350.1.13.10 ity of [place] [facility]OSPITAL 4.2.7.2.686 Edward as [phone] [address] 2020-10-05 2020-10-05 Telephone Evelio [facility] 1.2.840.114 [id number] Univers 00:00:00 00:00:00 Wondiful A Health 350.1.13.10 ity of [place] 4.2.7.2.686 Edward as Professio [phone] Mi schuyler cam 044 [facility] 2020-09-28 2020-09-28 Office [facility]UN[facility] 1.2.840.114 [id number] Univers 09:23:42 10:43:16 Visit Sheeba Medina 350.1.13.10 ity of [place].2.[place] [phone] Mi schuyler [facility] 205 [facility] 2020-09-28 2020-09-28 Outpatient R JAYLA [facility] [id number] [facility] 09:15:00 09:15:00 SHEEBA vito cosme ben [facility] 2020-09-28 2020-09-28 Telephone [facility] 1.2.840.114 [id number] Univers 00:00:00 00:00:00 Wondiful A Health 350.1.13.10 ity of [place] 4.2.7.2.686 [place] as Professio [phone] [address] One 2020-09-21 2020-09-21 [facility] Pob I [facility] 1.2. 840.114 [id number] Univers 13:34:10 13:54:10 Visit Evelio, Jose [facility] 350.1.13.1 0 ity of [place] 4.2.7.2.686 [place] as Professio [phone] Mi nik[address] One 2020-09-21 2020-09-21 Office [facility] 1.2.840.114 [id number] Univers 12:43:33 13:35:18 Visit Wondiful A Health 350.1.13.10 ity of [place] 4.2.7.2.686 [place] as Professio [phone] [address] One 2020-09-21 2020-09-21 Outpatient R EVELIO [facility] [id number] Univers 13:00:00 13:00:00 JOSE padron o ben [facility] 2020-09-06 2020-09-06 Refill [facility] 1.2.840.114 [id number] Univers 00:00:00 00:00:00 Wondiful A [place] 350.1.13.10 ity of [place].2.[place] [phone] [address] 2020-09-01 2020-09-01 Outpatient [facility] [id number] Univers 13:30:00 13:30:00 FRANCISCA ity of [facility] 2020-09-01 2020-09-01 Case [facility] 1.2.840.114 [id number] Univers 00:00:00 00:00:00 Management Wondiful A Health 350.1.13.10 ity of [place] 4.2.7.2.686 [place] as Professio [phone] [address] Office [facility] 2020-08-31 2020-08-31 Refill [facility] 1.2.840.114 [id number] Univers 00:00:00 00:00:00 Wondiful A Health 350.1.13.10 ity of [place] 4.2.7.2.686 [place] as Professio [phone] [facility] nal [address] [place] [address] Office [facility] 2020-08-30 2020-08-30 Emergency Warren, Lona [facility] 1.840.114 80 [id number] Univers 18:51:00 23:05:00 Shahla [place] 350.1.13.10 i ty of [place]2.7.2.[place] [phone] [facility] 084 [address] 2020-08-30 2020-08-30 Mcintire [facility] 1.2.840.114 [id number] Univers 00:00:00 00:00:00 Wondiful A Health 350.1.13.10 ity of [place] 4.2.7.2.686 [place] as Professio [phone] [address] Office Building One 2020-08-26 2020-08-26 Case [facility] 1.2.840.114 [id number] Univers 00:00:00 00:00:00 Management Wondiful A Health 350.1.13.10 ity of [place] 4.2.7.2.686 [place] as Professio [phone] Mi dical nal [address] Office Building [facility] 2020-08-25 2020-08-25 [facility] 1.2.748.410 [id number] Univers 13:02:50 13:10:00 Encounter Wondiful A [place] 350.1.13.10 ity of [place]2.7.2.[place] [phone] [facility] 8[address] 2020-08-25 2020-08-25 [facility] 1.2.669.766 [id number] Univers 12:47:30 13:01:00 Encounter Wondiful A [place] 350.1.13.10 ity of [place] 4.2.[place].2.[place] [phone] [facility] [address] 2020-08-25 2020-08-25 Outpatient [facility] [id number] Univers 00:00:00 00:00:00 WONDIFUL ity o f [facility] 2020-08-25 2020-08-25 Justo DrakeUN[facility] 1.2.840.114 [id number] Univers 00:00:00 00:00:00 Qiangjun [place] 350.1.13.10 ity of [place].2.[place] [phone] Mi dical nal 059 [facility] 2020-08-25 2020-08-25 [facility] 1.2.840.114 [id number] Univers 00:00:00 00:00:00 Management Wondiful A Health 350.1.13.10 ity of [place] 4.2.7.2.686 [place] as Professio [phone] Mi dical nal 0[address] Office [facility] 2020-08-24 2020-08-24 [facility], [facility]c Fam Pob I [facility] 1.2. 840.114 [id number] Univers 10:22:51 10:42:51 Visit Jose Fraser [facility] 350.1.13.1 0 ity of [place] 4.2.7.2.686 [place] as Professio [phone] Mi dical nal 0[address] Office Building [facility] 2020-08-24 2020-08-24 Outpatient R [facility] [id number] Univers 10:20:00 10:20:00 WONDIFUL ity o f [facility] 2020-08-23 2020-08-23 Office [facility] 1.2.840.114 [id number] Univers 09:39:39 17:20:11 Visit Wondiful [facility] 350.1.13.10 ity of [place] 4.2.7.2.686 [place] as Professio [phone] [address] 2020-08-23 2020-08-23 Outpatient R [facility] [id number] Univers 16:15:00 16:15:00 WONDIFUL ity o f [facility] 2020-08-16 2020-08-16 Telephone [facility] 1..840.114 [id number] Univers 00:00:00 00:00:00 Wondiful A Health 350.1.13.10 ity of [place] 4.2.7.2.686 [place] as Professio [phone] [facility] 044 [facility] 2020-08-13 2020-08-13 Refill [facility] 1..840.114 [id number] Univers 00:00:00 00:00:00 Wondiful A Health 350.1.13.10 ity of [place] 4.2.7.2.686 [place] as Professio [phone] [facility] 044 [facility] 2020-08-11 2020-08-11 Office [facility]UN[facility] ..080.071 [id number] Univers 15:12:55 15:42:55 Visit Sakina T [place] 350.1.13.10 ity of [place] 4[place]2.7.2.[place] [phone] [facility] 085 [facility] 2020-08-11 2020-08-11 Outpatient R SAKINA MILLAN [facility] [id number] Univers 15:30:00 15:30:00 ATASAKINA MURRIETA ity of [facility] 2020-08-11 2020-08-11 Orders Doctor THOMAS 1..840.114 [id number] Univers 00:00:00 00:00:00 Only Unassigned, MELIZA 350.1.13.10 ity of [place] [facility] 4.2.7.2.686 Edward as [phone] [address] 2020-08-09 2020-08-09 Office Vidal [facility] 1.2.840.114 [id number] Univers 14:34:46 15:13:12 Visit Luis Medina 350.1.13.10 [place] [phone] Mi dical nal 059 [facility] 2020-08-09 2020-08-09 [facility] [id number] Univers 14:40:00 14:40:00 LUIS padron o f [facility] 2020-07-17 2020-07-17 Outpatient R SAKINA MILLAN [facility] [id number] Univers 20:00:00 20:00:00 SAKINA MILLAN itewelina [facility] 2020-07-17 2020-07-17 Orders Doctor AMRTHA 1.2.840.114 [id number] Univers 00:00:00 00:00:00 Only Unassigned, MELIZA 350.1.13.10 ity of [place] [facility] 4.2.7.2.686 [place] as [phone] [address] 2020-07-16 2020-07-16 [employer] 1, [facility] Bed [facility] 1. 2.840.114 [id number] Univers 13:58:59 16:28:59 Visit Sakina Millan 350.1.13. 10 [place].2.[place] [phone] [facility] [address] 2020-07-15 2020-07-15 Laboratory Only, Adc Test [facility] 1.2.840. 114 [id number] Univers 11:55:53 12:10:53 Only Kevin Greene 350.1.13.10 it[place] of [place] 4[place].2.[place] [phone] [facility] [address] 2020-07-15 2020-07-15 Outpatient R [facility] [id number] Univers 11:45:00 11:45:00 ity of [facility] 2020-07-09 2020-07-09 [facility] 1.2.840.114 [id number] Univers 11:44:34 12:19:20 Visit Luis Medina 350.1.13.10 [place] [phone] [facility] nal 059 [facility] 2020-07-09 2020-07-09 [facility] [id number] Univers 11:40:00 11:40:00 QIAVIBHALORNA ity o f [facility] 2020-07-09 2020-07-09 Refgaurang [facility] 1.2.840.114 [id number] Univers 00:00:00 00:00:00 Wondiful A [place] 350.1.13.10 [place] [phone] [facility] Center 044 [facility] 2020-07-07 2020-07-07 [facility] 1.2.368.054 [id number] Univers 14:17:59 14:47:59 Visit Sakina Medina 350.1.13.10 it[place] [phone] Mi dical nal 085 [facility] 2020-07-07 2020-07-07 Outpatient R SAKINA MILLAN [facility] [id number] Univers 14:30:00 14:30:00 SAKINA MILLAN ity of [facility] 2020-07-06 2020-07-06 Refgaurang [facility] 1.2.840.114 [id number] Univers 00:00:00 00:00:00 Wondiful A [facility] 350.1.13.10 ity of [place] 4.2.7.2.686 [place] as Professio [phone] [facility] 2020-06-29 2020-06-29 Nathanael Fraser [facility] 1.2.840.114 [id number] Univers 00:00:00 00:00:00 Wondiful A Health 350.1.13.10 ity of [place] 4.2.7.2.686 [place] as Professio [phone] [address] 2020-06-28 2020-06-28 Case Evelio [facility] 1.2.840.114 [id number] Univers 00:00:00 00:00:00 Management Wondiful A Health 350.1.13.10 ity of [place] 4.2.7.2.686 [place] Professio [phone] [address] Office [facility] One 2020-06-21 2020-06-21 [employer] [facility], Adc Fam Pob I [facility] 1.2. 840.114 [id number] Univers 15:51:13 16:01:13 Visit [facility] 350.1.13.1 0 ity of [place] 4.2.7.2.686 [place] as Professio [phone] [address] One 2020-06-21 2020-06-21 Office Evelio [facility] 1.2.840.114 [id number] Univers 14:55:43 15:53:28 Visit Wondiful A Health 350.1.13.10 ity of [place] 4.2.7.2.686 [place] as Professio [phone] [address] One 2020-06-21 2020-06-21 [facility] [id number] Univers 15:15:00 15:15:00 WONDIFUL ity o f [facility] 2020-06-17 2020-06-17 [employer], Adc Sleep Lab [facility] 1.2 .840.114 [id number] Univers 13:00:28 13:15:28 Visit Sakina Millan [place] 350.1.13. 10 [place] [phone] [address] 2020-06-17 2020-06-17 Outpatient R [facility] [id number] Univers 13:00:00 13:00:00 ity of [facility] 2020-06-15 2020-06-15 Outpatient R SAKINA MILLAN [facility] [id number] Univers 14:00:00 14:00:00 SAKINA MILLAN ity of [facility] 2020-06-11 2020-06-11 Outpatient R [facility] [id number] Univers 15:00:00 15:00:00 ity of [facility] 2020-06-11 2020-06-11 Laboratory Only, Adc Test [facility] 1.2.840. 114 [id number] Univers 14:10:00 14:25:00 Only RamonaKevin Adam 350.1.13.10 it[place] of [place] [phone] [facility] [address] 2020-06-11 2020-06-11 Orders Doctor MARTHA 1.2.840.114 [id number] Univers 00:00:00 00:00:00 Only Unassigned, MELIZA 350.1.13.10 ity of [place] [facility] 4.2.7.2.686 Edward as [phone] [facility] [address] 2020-06-09 2020-06-09 Office [facility] 1.2.840.114 [id number] Univers 14:14:37 14:57:58 Visit Luis Medina 350.1.13.10 it[place] [phone] Mi dical nal [address] 2020-06-09 2020-06-09 Outpatient [facility] [id number] Univers 14:20:00 14:20:00 LUIS ity o f [facility] 2020-06-09 2020-06-09 Telephone [facility] 1.2.840.114 [id number] Univers 00:00:00 00:00:00 Wondiful A Health 350.1.13.10 ity of [place] 4.2.7.2.686 [place] as Professio [phone] Mi dical nal 044 [address] Building One 2020-06-08 2020-06-08 [facility] [id number] Univers 11:45:00 11:45:00 WONDIFUL ity o f [facility] 2020-06-07 2020-06-07 Office [facility] 1.2.840.114 [id number] Univers 10:11:55 10:51:44 Visit Wondiful A Health 350.1.13.10 ity of [place] 4.2.7.2.686 Edwadr as Professio [phone] [address] 2020-06-07 2020-06-07 Outpatient R EVELIO [facility] [id number] Univers 10:00:00 10:00:00 WONDIFUL ity o f [facility] 2020-06-07 2020-06-07 Refill [facility] 1.2.840.114 [id number] Univers 00:00:00 00:00:00 W[facility]iful A Health 350.1.13.10 ity of [place] 4.2.7.2.686 [place] as Professio [phone] [address] 2020-06-03 2020-06-03 Emergency [facility] 1.2.840.114 [id number] Univers 15:17:00 18:33:00 Ko B [place] 350.1.13.10 i ty [place] [phone] [address] 2020-06-03 2020-06-03 Telephone [facility] 1.2.840.114 [id number] Univers 00:00:00 00:00:00 W[facility]iful A Health 350.1.13.10 ity of [place] 4.2.7.2.686 [place] Professio [phone] [address] 2020-06-01 2020-06-01 Refill [facility] 1.2.840.114 [id number] Univers 00:00:00 00:00:00 Wondiful A Bivalve 350.1.13.10 [place] [phone] [address] 2020-05-10 2020-05-27 Office [facility] 1.2.840.114 [id number] Univers 13:59:31 17:39:50 Visit Wondiful A Bivalve 350.1.13.10 it[place] of [place] [phone] [address] 2020-05-23 2020-05-23 Refill [facility] 1.2.840.114 [id number] Univers 00:00:00 00:00:00 Wondiful A Health 350.1.13.10 ity of [place] 4.2.7.2.686 [place] as Professio [phone] [address] 2020-05-10 2020-05-10 [employer], Adc Lab [facility] 1.2.840.114 [id number] Univers 15:20:43 15:35:43 Visit Ronal Fraserkirstenkyle A [place] 350.1.13. 10 it[place] [phone] [facility] 353 [facility] 2020-05-10 2020-05-10 Outpatient R EVELIO [facility] [id number] Univers 15:30:00 15:30:00 WONDIFUL ity o f [facility] 2020-04-16 2020-04-16 Refill [facility] 1.2.840.114 [id number] Univers 00:00:00 00:00:00 Wondiful A Health 350.1.13.10 ity of [place] 4.2.7.2.686 [place] as Professio [phone] [address] 2020-04-13 2020-04-13 Telephone [facility] 1.2.840.114 [id number] Univers 00:00:00 00:00:00 Wondiful A [place] 350.1.13.10 it[place] [phone] [address] 2020-04-13 2020-04-13 Refill [facility] 1.2.840.114 [id number] Univers 00:00:00 00:00:00 Wondiful A Health 350.1.13.10 ity of [place] 4.2.7.2.686 [place] as Professio [phone] [facility] [address] Office [facility] 2020-04-12 2020-04-12 Orders Doctor MARTHA 1.2.840.114 [id number] Univers 00:00:00 00:00:00 Only Unassigned, MELIZA 350.1.13.10 ity of [place] [facility] 4.2.7.2.686 Edward as [phone] [facility] [address] 2020-02-26 2020-02-26 Office Ivon [facility] 1.2.840.114 [id number] Univers 14:19:17 15:14:21 Visit Bhavin Medina 350.1.13.10 i [place] [phone] [facility] 085 [facility] 2020-02-26 2020-02-26 Outpatient R BHAVIN CLAYTON [facility] [id number] Univers 14:20:00 14:20:00 BHAIVN CLAYTON i ty of [facility] 2020-02-23 2020-02-23 Telephone [facility], [facility] 1.2.840.114 [id number] Univers 00:00:00 00:00:00 Endoscopy ICAL 350.1.13.10 ity of [place] 4.2.7.2.686 Edward as BLDG [phone] [facility] [address] 2020-02-16 2020-02-16 Orders Doctor MARTHA 1.2.840.114 [id number] Univers 00:00:00 00:00:00 Only Unassigned, MELIZA 350.1.13.10 ity of [place] [facility] 4.2.7.2.686 Edward as [phone] [facility] [address] 2020-01-20 2020-01-20 Refill Evelio [facility] 1.2.840.114 [id number] Univers 00:00:00 00:00:00 Wondiful A Health 350.1.13.10 ity of [place] 4.2.7.2.686 [place] as Professio [phone] [facility] 044 [facility] 2020-01-19 2020-01-19 Telephone [facility] 1.2.116.109 [id number] Univers 00:00:00 00:00:00 Qiarhonda [place] 350.1.13.10 it[place] of [place] [phone] Mi schuyler cam 059 [facility] 2020-01-16 2020-01-16 Telephone [facility] 1.2.840.114 [id number] Univers 00:00:00 00:00:00 W[facility]iful A Health 350.1.13.10 ity of [place] 4.2.7.2.686 [place] as Professio [phone] [facility] 044 [facility] 2020-01-12 2020-01-12 Telephone [facility] 1.2.840.114 [id number] Univers 00:00:00 00:00:00 Wondiful A [place] 350.1.13.10 it[place] [phone] [facility] 044 [facility] 2020-01-12 2020-01-12 Orders Doctor MARTHA 1.2.840.114 [id number] Univers 00:00:00 00:00:00 Only Unassigned, MELIZA 350.1.13.10 ity of [place] [facility] 4.2.7.2.686 Edward as [phone] [address] 2020-01-05 2020-01-05 [facility] [id number] Univers 08:15:00 08:15:00 WONDIFUL ity o f [facility] 2020-01-05 2020-01-05 Telemedici [facility] 1.2.840.114 [id number] Univers 07:03:47 07:33:47 ne Visit Wondiful A [place] 350.1.13.10 it[place].2.[place] [phone] Mi dic[address] 2019-12-30 2019-12-30 Telephone [facility] 1.2.840.114 [id number] Univers 00:00:00 00:00:00 Wondiful A Health 350.1.13.10 ity of [place] 4.2.7.2.686 [place] as Professio [phone] [address] Office [facility] 2019-12-23 2019-12-23 Telemedici [facility] 1.2.840.114 [id number] Univers 07:43:58 15:05:06 ne Visit Wondiful A [place] 350.1.13.10 it[place] of [place].2.[place] [phone] [address] 2019-12-23 2019-12-23 [facility]patient [facility] [id number] Univers 13:00:00 13:00:00 WONDIFUL ity o f [facility] 2019-12-21 2019-12-21 Refill [facility] 1.2.840.114 [id number] Univers 00:00:00 00:00:00 Wondiful A Health 350.1.13.10 ity of [place] 4.2.7.2.686 [place] as Professio [phone] [address] Office [facility] 2019-12-11 2019-12-11 Transition Bonnie Rios 1.2.840.114 [id number] Univers 00:00:00 00:00:00 of Care Sofia Price 350.1.13.10 it y of [place].2.[place] [phone] [address] 2019-12-10 2019-12-10 Transition Bonnie Rios 1.2.840.114 [id number] Univers 00:00:00 00:00:00 of Care Sofia Price 350.1.13.10 it y of [place].2.[place] [phone] [address] 2019-12-10 2019-12-10 Telephone [facility] 1.2.840.114 [id number] Univers 00:00:00 00:00:00 Wondiful A [place] 350.1.13.10 it[place] of [place].2.[place] [phone] Mi dic[address] 2019-12-06 2019-12-09 Inpatient X KYRIE [facility] LANA [id number] Univers 20:15:25 19:57:00 MERCY ity of [facility] 2019-12-06 2019-12-09 [facility] Everton Scott [facility] 1.2.840.114 [id number] Univers 20:15:25 19:57:00 Encounter Kelly Mittal Adam 350.1.13.10 ity of [place] 4.2.7.2.686 [facility] [phone] [place] [place] 2019-12-09 2019-12-09 Refgaurang FraserUN[facility] 1.2.840.114 [id number] Univers 00:00:00 00:00:00 Wondiful A Health 350.1.13.10 ity of [place] 4.2.7.2.686 [place] as Professio [phone] [address] Office [facility] One 2019-11-19 2019-11-19 Telephone Motility, [facility] 1.2.840.114 [id number] Univers 00:00:00 00:00:00 Endoscopy ICAL 350.1.13.10 ity of [place] 4.2.7.2.686 Edward as BLDG [phone] [address] 2019-11-18 2019-11-18 Telephone Motility, [facility] 1.2.840.114 [id number] Univers 00:00:00 00:00:00 Endoscopy ICAL 350.1.13.10 ity of [place] 4.2.7.2.686 Edward as BLDG [phone] [address] 2019-11-14 2019-11-14 Emergency X [facility] ERT [id number] Univers 18:32:04 20:53:00 PATRICIA ity [facility] 2019-11-14 2019-11-14 Emergency Jose [facility]upeUN[facility] 1.2.575.317 [id number] Univers 18:32:04 20:53:00 Patricia Medina 350.1.13.10 i ty of [place] 4.2.7.2.686 [facility] [phone] [address] 2019-11-14 2019-11-14 Orders Doctor MARTHA 1.2.840.114 [id number] Univers 00:00:00 00:00:00 Only Unassigned, MELIZA 350.1.13.10 ity of [place] [facility]OSP[facility] 4.2.7.2.686 Edward as [phone] [address] 2019-11-13 2019-11-13 Telephone Motility, [facility] 1.2.840.114 [id number] Univers 00:00:00 00:00:00 Endoscopy ICAL 350.1.13.10 ity of [place] 4.2.7.2.686 Edward as BLDG [phone] [address] 2019-11-12 2019-11-12 Orders Doctor MARTHA 1.2.840.114 [id number] Univers 00:00:00 00:00:00 Only Unassigned, MELIZA 350.1.13.10 ity of [place] [facility]OSP[facility] 4.2.7.2.686 Edward as [phone] [address] 2019-11-08 2019-11-08 Urgent Jeffrey Ko [facility] 1.2.840.11 [id number] Univers 18:44:29 18:59:29 Care Unknown, Attending Health 350.1.13.10 ity of Surgical 4.2.7.2.686 Edward as Specialti [phone] Mi dical 370 [facility] 2019-11-06 2019-11-06 Telephone Motility, [facility] 1.2.840.114 [id number] Univers 00:00:00 00:00:00 Endoscopy ICAL 350.1.13.10 ity of [place] 4.2.7.2.686 Edward as BLDG [phone] [address] 2019-11-04 2019-11-04 Telephone Motility, [facility] 1.2.840.114 [id number] Univers 00:00:00 00:00:00 Endoscopy ICAL 350.1.13.10 ity of [place] 4.2.7.2.686 Edward as BLDG [phone] [address] 2019-10-30 2019-10-30 Office Evelio [facility] 1.2.840.114 [id number] Univers 09:26:55 10:26:49 Visit Wondiful A Health 350.1.13.10 ity of [place] 4.2.7.2.686 Edward as Professio [phone] [facility] [address] Office [facility] 2019-10-30 2019-10-30 Case Evelio [facility] 1.2.840.114 [id number] Univers 00:00:00 00:00:00 Management Wondiful A Health 350.1.13.10 ity of [place] 4.2.7.2.686 Edward as Professio [phone] [facility] [address] Office [facility] 2019-10-30 2019-10-30 Refill [facility] 1.2.840.114 [id number] Univers 00:00:00 00:00:00 Wondiful A Health 350.1.13.10 ity of [place] 4.2.7.2.686 Edward as Professio [phone] [facility] 044 [facility] 2019-10-21 2019-10-21 Telephone Motility, [facility] 1.2.840.114 [id number] Univers 00:00:00 00:00:00 Endoscopy ICAL 350.1.13.10 ity of [place] 4.2.7.2.686 Edward as BLDG [phone] [address] 2019-10-09 2019-10-09 Telephone Motility, [facility] 1.2.840.114 [id number] Univers 00:00:00 00:00:00 Endoscopy ICAL 350.1.13.10 ity of [place] 4.2.7.2.686 Edward as BLDG [id number] [address] 2019-08-27 2019-08-27 Outpatient R EVELIO [facility] [id number] Univers 09:22:45 23:59:00 WONDIFUL ity o f [facility] 2019-06-06 2019-06-06 Prep For Lakshmi [facility] 1.2.840.114 [id number] Univers 00:00:00 00:00:00 Surgery Francisca A [place]ival[place] 350.1.13.10 it[place] of [place] [phone] [facility] 204 [facility] 2019-06-05 2019-06-05 Office Jacob [facility] 1.2.844.420 [id number] Univers 12:56:30 14:21:14 Visit Crystal Medina 350.1.13.10 i ty of [place].2.[place] [phone] Me dical nal 377 [facility] 2019-06-05 2019-06-05 Orders Doctor THOMAS 1.2.840.114 [id number] Univers 00:00:00 00:00:00 Only Unassigned, MELIZA 350.1.13.10 ity of [place] [facility]OSPITAL 4.2.7.2.686 Edward as [phone] [facility] kacey 009 [address] 2019-06-02 2019-06-02 [facility] 1.2.840.114 [id number] Univers 18:45:00 23:59:00 Encounter [facility] 350.1.13.10 ity of Surgical 4.2.7.2.686 Edward as Specialti [phone] Me dical es 808 [facility] 2019-06-02 2019-06-02 [facility] Luís [place] [facility] 1.2.840.114 [id number] Univers 18:15:15 19:44:45 Care Unknown, Attending Health 350.1.13.10 ity of Surgical 4.2.7.2.686 Edward as Specialti [phone] Me dical es 370 [facility] 2019-06-02 2019-06-02 [facility] 1.2.840.114 [id number] Univers 18:40:00 18:44:00 Encounter [facility] 350.1.13.10 ity of Surgical 4.2.7.2.686 Edward as Specialti [phone] Me dical es 808 [facility] 2019-06-02 2019-06-02 Telephone Evelio [facility] 1.2.840.114 [id number] Univers 00:00:00 00:00:00 Wondiful A Health 350.1.13.10 ity of [place] 4.2.7.2.686 Edward as Professio [phone] Me dical nal [address]44 [address] Office [facility] 2019-05-25 2019-05-25 Orders Doctor MARTHA 1.2.840.114 [id number] Univers 00:00:00 00:00:00 Only Unassigned, MELIZA 350.1.13.10 ity of [place] [facility]PITAL 4.2.7.2.686 Edward as [phone] [address] 2019-04-25 2019-04-25 Office KYM Fraser 1.2.840.114 [id number] Univers 13:05:24 14:13:17 Visit FifiShuttlerock 350.1.13.10 ity of [place] 4.2.7.2.686 Edward as Professio [phone] [facility] [address] Office Building One 2019-04-25 2019-04-25 Orders Doctor MARTHA 1.2.840.114 [id number] Univers 00:00:00 00:00:00 Only Unassigned, MELIZA 350.1.13.10 ity of [place] [facility]OSPITAL 4.2.7.2.686 Edward as [phone] [address] 2019-04-16 2019-04-16 Orders Doctor MARTHA 1.2.840.114 [id number] Univers 00:00:00 00:00:00 Only Unassigned, MELIZA 350.1.13.10 ity of [place] [facility] 4.2.7.2.686 Edward as [phone] [address] Results Test Description Test Time Test [...] Predicted (test 58.9 % code = 5587) [facility], fllcmfre7251-15-57 20:05:39 Test Item Value Reference Range Interpretation [...] [Auto mated message] = 5514) The system [employer] generated this result transmitted ref erence range: [...] See_Comment [Autom ated message] 5507) The system [employer] generated this result transmitted ref erence range: 3.06 - 3 .06 cmH2O*s/L. The reference range was not used to int erpret this result as normal/abnormal . Raw Predicted (test code = 5505) Raw LLN (test code = 5506) Raw % Pre of 338.4 % Predicted (test code = 5508) sGaw Predicted (test See_Comment [Autom ated message] code = 5528) The system [employer] generated this result transmitted ref erence range: [...] [facility]KiohjnbqBRYTJJTPOR6144-39-72 19:42:00 Test Item Value Reference Range Interpretation Comments Coronavirus (COVID-19) Not Detected MAURA (test code = *NA*(11/01/21 1:42 PM) Coronavirus (COVID-19) MAURA) [facility]6452[facility] 19:42:00 Test Item Value Reference Range Interpretation Comments Coronavirus (COVID-19) Not Detected MAURA (test code = *NA*(11/01/21 1:42 PM) Coronavirus (COVID-19) MAURA) [id number] 19:42:00 Test Item Value Reference Range Interpretation Comments Coronavirus (COVID-19) Not Detected MAURA (test code = *NA*(11/01/21 1:42 PM) Coronavirus (COVID-19) MAURA) [facility] HospitalBfllalqJGTBZADTPV4937-44-46 19:42:00 Test Item Value Reference Range Interpretation Comments Coronavirus (COVID-19) Not Detected MAURA (test code = *NA*(11/01/21 1:42 PM) Coronavirus (COVID-19) MAURA) [facility] LDL/HDL [id number] 00:00:00 Test Item Value Reference Range Interpretation Comments Cholesterol, Total (test code = 2093-3) 282 100-199 Triglycerides (test code = 2571-8) 190 0-149 HDL Cholesterol (test code = 2085-9) 55 >39 Thyroid Panel With [id number] 00:00:00 Test Item Value Reference Range Interpretation Comments TSH (test code = 22224-4) 6.260 0.450-4.500 Thyroxine (T4) (test code = 3026-2) 5.4 4.5-12.0 T3 Uptake (test code = 3050-2) 28 24-39 Free Thyroxine Index (test code = 1.5 1.2-4.9 51433-1) Microalbumin/Creat Ratio, Random [id number] 00:00:00 Test Item Value Reference Range Interpretation Comments Creatinine, Urine (test code = 2161-8) 99.9 Not Estab. Albumin, Urine (test code = 88335-6) 487.3 Not Estab. Alb/Creat Ratio (test code = 93678-0) 488 0-29 Hemoglobin [id number] 00:00:00 Test Item Value Reference Range Interpretation Comments Hemoglobin A1c (test code = 4548-4) 6.7 4.8-5.6 Comp. Metabolic Panel (14) (CMP)2021-08-09 00:00:00 Test Item Value Reference Range Interpretation Comments Glucose (test code = 2345-7) 159 65-99 BUN (test code = 3094-0) 28 8-27 Creatinine (test code = 2160-0) 1.30 0.57-1.00 eGFR If NonAfricn Am (test code = 39 >59 76472-5) eGFR If Africn Am (test code = 12874-1) 45 >59 BUN/Creatinine Ratio (test code = 09-13 3097-3) Sodium (test code = 2951-2) 138 134-144 Potassium (test code = 2823-3) 4.7 3.5-5.2 Chloride (test code = 2075-0) 98 96-106 Carbon Dioxide, Total (test code = -2028-05) Calcium (test code = 25819-5) 9.8 8.7-10.3 Protein, Total (test code = 2885-2) 6.6 6.0-8.5 Albumin (test code = 1751-7) 4.1 3.7-4.7 Globulin, Total (test code = 21772-3) 2.5 1.5-4.5 A/G Ratio (test code = 1759-0) 1.6 1.2-2.2 Bilirubin, Total (test code = 1974-) 0.3 0.0-1.2 Alkaline Phosphatase (test code = 74 44-121 6768-6) AST (SGOT) (test code = 1920-8) 15 0-40 ALT (SGPT) (test code = 1742-6) 16 0-32 CBC With Differential/[id number] 00:00:00 Test Item Value Reference Range Interpretation [...] Granulocytes (test code = 0 Not Estab. 50845-8) Immature Grans (Abs) (test code = 0.0 0.0-0.1 57809-0) NRBC (test code = 96740-2) Hematology Comments: (test code = 82388-9) CHEM [id number] 15:34:00 Test Item Value Reference Range Interpretation Comments Chloride Lvl (test code = Chloride Lvl) 107 95-109 [facility] [id number] 15:34:00 Test Item Value Reference Range Interpretation Comments CO2 (test code = CO2) 27 24-32 [facility] [employer] [id number] 15:34:00 Test Item Value Reference Range Interpretation Comments Calcium Lvl (test code = Calcium Lvl) 9.1 8.5-10.5 [facility] [employer] [id number] 15:34:00 Test Item Value Reference Range Interpretation Comments Total Protein (test code = Total 7.7 6.4-8.4 Protein) [facility] [employer] [id number] 15:34:00 Test Item Value Reference Range Interpretation Comments Albumin Lvl (test code = Albumin Lvl) 4.0 3.5-5.0 [facility] [employer] [id number] 15:34:00 Test Item Value Reference Range Interpretation Comments ALT (test code = ALT) 24 See_Comment [Auto mated message] The system which ge nerated this result transmit cesar reference range : <=65. The reference range was not used to interpr et this result as aman l/abnormal. [facility] [employer] [id number] 15:34:00 Test Item Value Reference Range Interpretation Comments AST (test code = AST) 19 See_Comment [Auto mated message] The system which ge nerated this result transmit cesar reference range : <=37. The reference range was not used to interpr et this result as aman l/abnormal. [facility] [employer] [id number] 15:34:00 Test Item Value Reference Range Interpretation Comments Alk Phos (test code = Alk Phos) 64 39-[address] [facility] [employer] [id number] 15:34:00 Test Item Value Reference Range Interpretation Comments Bili Total (test code = Bili Total) 0.4 0.2-1.3 [facility] [employer] [id number] 15:34:00 Test Item Value Reference Range Interpretation Comments AGAP (test code = AGAP) 9.4 10.0-20.0 [facility]91 [employer] [id number] 15:34:00 Test Item Value Reference Range Interpretation Comments B/C Ratio (test code = B/C Ratio) 16 1 6-25 [facility]91 [employer] [id number] 15:34:00 Test Item Value Reference Range Interpretation Comments Globulin (test code = Globulin) 3.7 2.7-4.[address] [facility] [place] 15:34:00 Test Item Value Reference Range Interpretation Comments A/G Ratio (test code = A/G Ratio) 1.1 1 0.7-1.6 [place] 288201-06-04 15:34:00 Test Item Value Reference Range Interpretation Comments eGFR (test code = eGFR) 38 [place] [address]-06-04 15:34:00 Test Item Value Reference Range Interpretation Comments Segs (test code = Segs) 49.7 45.0-75.0 [place] [address]-06-04 15:34:00 Test Item Value Reference Range Interpretation Comments Lymphocytes (test code = Lymphocytes) 39.6 20.0-40.0 [place] [address]-06-04 15:34:00 Test Item Value Reference Range Interpretation Comments Monocytes (test code = Monocytes) 6.6 2.0-12.0 [place] [address]-06-04 15:34:00 Test Item Value Reference Range Interpretation Comments Eosinophils (test code = 3.6 See_Comment [A utomated message] The Eosinophils) system which ge nerated this result tra nsmitted reference range : <=4.0. The reference r dayana was not used to int erpret this result as normal/abnormal . [place] 598581-06-04 15:34:00 Test Item Value Reference Range Interpretation Comments Basophils (test code = 0.5 See_Comment [Aut omated message] The Basophils) system which ge nerated this result tra nsmitted reference range : <=1.0. The reference r dayana was not used to int erpret this result as normal/abnormal . [place] 598581-06-04 15:34:00 Test Item Value Reference Range Interpretation Comments Neutrophils # (test code = Neutrophils 3.5 1.5-8.1 #) [place] [address]-06-04 15:34:00 Test Item Value Reference Range Interpretation Comments Lymphocytes # (test code = Lymphocytes 2.8 1.0-5.5 #) [place] [address]-06-04 15:34:00 Test Item Value Reference Range Interpretation Comments Monocytes # (test code 0.5 See_Comment [Aut omated message] The = Monocytes #) system which generated this result tra nsmitted reference range : <=0.8. The reference r dayana was not used to int erpret this result as normal/abnormal . [facility]DljtttoQCYNKJMOQK5992-88-38 15:34:00 Test Item Value Reference Range Interpretation Comments Eosinophils # (test code 0.3 See_Comment [A utomated message] The = Eosinophils #) system [employer] [facility] generated this result tra nsmitted reference range : <=0.5. The reference r dayana was not used to int erpret this result as normal/abnormal . [facility] HospitalRopnaqvHHVZXUKQXV4217-11-56 15:34:00 Test Item Value Reference Range Interpretation Comments WBC (test code = WBC) 7.0 3.7-10.4 [place] 598581-06-04 15:34:00 Test Item Value Reference Range Interpretation Comments RBC (test code = RBC) 4.83 4.20-5.40 [place] 598581-06-04 15:34:00 Test Item Value Reference Range Interpretation Comments Hgb (test code = Hgb) 12.7 12.0-16.0 [place] 598581-06-04 15:34:00 Test Item Value Reference Range Interpretation Comments Hct (test code = Hct) 38.3 36.0-48.0 [place] 598581-06-04 15:34:00 Test Item Value Reference Range Interpretation Comments MCV (test code = MCV) 79.3 80.0-98.0 [place] 598581-06-04 15:34:00 Test Item Value Reference Range Interpretation Comments MCH (test code = MCH) 26.3 pg 27.0-31.0 [place] 598581-06-04 15:34:00 Test Item Value Reference Range Interpretation Comments MCHC (test code = MCHC) 33.1 32.0-36.0 [place] [address]-06-04 15:34:00 Test Item Value Reference Range Interpretation Comments RDW (test code = RDW) 15.1 11.5-14.5 [facility] HospitalJuqjayoGORHTTQXRP7892-98-38 15:34:00 Test Item Value Reference Range Interpretation Comments Platelet (test code = Platelet) 289 133-450 [facility] HospitalJnsgefuCTGGWKZVZF6350-89-00 15:34:00 Test Item Value Reference Range Interpretation Comments MPV (test code = MPV) 8.1 7.4-10.4 [facility] HospitalIudvxbpMZPZZZKPFM2438-76-26 15:34:00 Test Item Value Reference Range Interpretation Comments PT (test code = PT) 13.1 s 12.0-14.7 [facility]ZwcezaiDECYOISXES0259-53-91 15:34:00 Test Item Value Reference Range Interpretation Comments INR (test code = INR) 1.00 1 0.85-1.17 [facility] CenterYkvbtveMFUZLQEBOV0549-74-97 15:34:00 Test Item Value Reference Range Interpretation Comments PTT (test code = PTT) 28.7 s 22.9-35.8 [facility] CenterBdtmcgxDTZXXQMXCN3264-79-96 15:34:00 Test Item Value Reference Range Interpretation Comments Coronavirus (COVID-19) Not Detected (02/18/21 MAURA (test code = 10:34 AM) Coronavirus (COVID-19) MAURA) [facility] [id number] 15:34:00 Test Item Value Reference Range Interpretation Comments Hgb A1C (test code = Hgb A1C) 5.[address] [facility] [employer] [id number] 15:34:00 Test Item Value Reference Range Interpretation Comments ABO/Rh (test code = ABO/Rh) O POS [facility] [employer] [id number] 15:34:00 Test Item Value Reference Range Interpretation Comments Antibody Scrn (test Negative (02/18/21 10:34 code = Antibody Scrn) AM) [facility] [employer] [id number] 15:34:00 Test Item Value Reference Range Interpretation Comments Glucose Lvl (test code = Glucose Lvl) 111 70-[address] [facility] [employer] [id number] 15:34:00 Test Item Value Reference Range Interpretation Comments BUN (test code = BUN) 21 7-[address] [facility] [employer]2021-06-04 15:34:00 Test Item Value Reference Range Interpretation Comments Creatinine Lvl (test code = Creatinine 1.32 0.50-1.40 Lvl) [facility] [employer]2021-06-04 15:34:00 Test Item Value Reference Range Interpretation Comments Sodium Lvl (test code = Sodium Lvl) 139 135-[address] [facility] [employer]2021-06-04 15:34:00 Test Item Value Reference Range Interpretation Comments Potassium Lvl (test code = Potassium 4.4 3.5-5.1 Lvl) [facility] HospitalNaut[facility] BiotechKEVIN [facility] [address]RQMLP1331-30-03 15:34:00 Test Item Value Reference Range Interpretation Comments Chloride Lvl (test code = Chloride Lvl) 107 95-109 [place] 288201-06-04 15:34:00 Test Item Value Reference Range Interpretation Comments CO2 (test code = CO2) 27 24-32 [facility] HospitalN[facility] BiotechKEVIN [facility] [id number] 15:34:00 Test Item Value Reference Range Interpretation Comments Calcium Lvl (test code = Calcium Lvl) 9.1 8.5-10.5 [facility] HospitalNaut[facility] BiotechKEVIN [place] [id number] 15:34:00 Test Item Value Reference Range Interpretation Comments Total Protein (test code = Total 7.7 6.4-8.4 Protein) [place] 288201-06-04 15:34:00 Test Item Value Reference Range Interpretation Comments Albumin Lvl (test code = Albumin Lvl) 4.0 3.5-5.0 [facility]91 [employer] [id number] 15:34:00 Test Item Value Reference Range Interpretation Comments ALT (test code = ALT) 24 See_Comment [Auto mated message] The system which ge nerated this result transmit cesar reference range : <=65. The reference range was not used to interpr et this result as aman l/abnormal. [facility] [employer] [id number] 15:34:00 Test Item Value Reference Range Interpretation Comments AST (test code = AST) 19 See_Comment [Auto mated message] The system which ge nerated this result transmit cesar reference range : <=37. The reference range was not used to interpr et this result as aman l/abnormal. [facility]91 [employer] [id number] 15:34:00 Test Item Value Reference Range Interpretation Comments Alk Phos (test code = Alk Phos) 64 39-136 [facility] [employer] [id number] 15:34:00 Test Item Value Reference Range Interpretation Comments Bili Total (test code = Bili Total) 0.4 0.2-1.3 [facility] [id number] 15:34:00 Test Item Value Reference Range Interpretation Comments AGAP (test code = AGAP) 9.4 10.0-20.0 [facility] [employer] [id number] 15:34:00 Test Item Value Reference Range Interpretation Comments B/C Ratio (test code = B/C Ratio) 16 1 6-25 [place] 288201-06-04 15:34:00 Test Item Value Reference Range Interpretation Comments Globulin (test code = Globulin) 3.7 2.7-4.2 [place] 288201-06-04 15:34:00 Test Item Value Reference Range Interpretation Comments A/G Ratio (test code = A/G Ratio) 1.1 1 0.7-1.6 [place] 288201-06-04 15:34:00 Test Item Value Reference Range Interpretation Comments eGFR (test code = eGFR) 38 [place] [address]-06-04 15:34:00 Test Item Value Reference Range Interpretation Comments Segs (test code = Segs) 49.7 45.0-75.0 [place] [address]-06-04 15:34:00 Test Item Value Reference Range Interpretation Comments Lymphocytes (test code = Lymphocytes) 39.6 20.0-40.0 [place] [address]-06-04 15:34:00 Test Item Value Reference Range Interpretation Comments Monocytes (test code = Monocytes) 6.6 2.0-12.0 [place] [address]-06-04 15:34:00 Test Item Value Reference Range Interpretation Comments Eosinophils (test code = 3.6 See_Comment [A utomated message] The Eosinophils) system which ge nerated this result tra nsmitted reference range : <=4.0. The reference r dayana was not used to int erpret this result as normal/abnormal . [place] 598581-06-04 15:34:00 Test Item Value Reference Range Interpretation Comments Basophils (test code = 0.5 See_Comment [Aut omated message] The Basophils) system which ge nerated this result tra nsmitted reference range : <=1.0. The reference r dayana was not used to int erpret this result as normal/abnormal . [place] 598581-06-04 15:34:00 Test Item Value Reference Range Interpretation Comments Neutrophils # (test code = Neutrophils 3.5 1.5-8.1 #) [place] [address]-06-04 15:34:00 Test Item Value Reference Range Interpretation Comments Lymphocytes # (test code = Lymphocytes 2.8 1.0-5.5 #) [place] 598581-06-04 15:34:00 Test Item Value Reference Range Interpretation Comments Monocytes # (test code 0.5 See_Comment [Aut omated message] The = Monocytes #) system which generated this result tra nsmitted reference range : <=0.8. The reference r dayana was not used to int erpret this result as normal/abnormal . [place] 598581-06-04 15:34:00 Test Item Value Reference Range Interpretation Comments Eosinophils # (test code 0.3 See_Comment [A utomated message] The = Eosinophils #) system whic h generated this result tra nsmitted reference range : <=0.5. The reference r dayana was not used to int erpret this result as normal/abnormal . [place] 598581-06-04 15:34:00 Test Item Value Reference Range Interpretation Comments WBC (test code = WBC) 7.0 3.7-10.4 [place] 598581-06-04 15:34:00 Test Item Value Reference Range Interpretation Comments RBC (test code = RBC) 4.83 4.20-5.40 [place] [address]-06-04 15:34:00 Test Item Value Reference Range Interpretation Comments Hgb (test code = Hgb) 12.7 12.0-16.0 [place] [address]-06-04 15:34:00 Test Item Value Reference Range Interpretation Comments Hct (test code = Hct) 38.3 36.0-48.0 [place] [address]-06-04 15:34:00 Test Item Value Reference Range Interpretation Comments MCV (test code = MCV) 79.3 80.0-98.0 [place] [address]-06-04 15:34:00 Test Item Value Reference Range Interpretation Comments MCH (test code = MCH) 26.3 pg 27.0-31.0 [place] [address]-06-04 15:34:00 Test Item Value Reference Range Interpretation Comments MCHC (test code = MCHC) 33.1 32.0-36.0 [place] [address]-06-04 15:34:00 Test Item Value Reference Range Interpretation Comments RDW (test code = RDW) 15.1 11.5-14.5 [facility] HospitalTkebvcnQAEIJFVTKI5086-18-31 15:34:00 Test Item Value Reference Range Interpretation Comments Platelet (test code = Platelet) 289 133-450 [facility] CenterTfnqjjyPYDRQXZNAK0993-90-28 15:34:00 Test Item Value Reference Range Interpretation Comments MPV (test code = MPV) 8.1 7.4-10.4 [facility] HospitalQjnltroZUFVWBSRIY9112-61-74 15:34:00 Test Item Value Reference Range Interpretation Comments PT (test code = PT) 13.1 s 12.0-14.7 [facility] HospitalIaaubsfNQFADGLGXL1029-79-25 15:34:00 Test Item Value Reference Range Interpretation Comments INR (test code = INR) 1.00 1 0.85-1.17 [facility] CenterEoxbuonJASASFVOTF7784-04-35 15:34:00 Test Item Value Reference Range Interpretation Comments PTT (test code = PTT) 28.7 s 22.9-35.8 [facility] HospitalYgdwztbMKPPNTCQLF0023-50-79 15:34:00 Test Item Value Reference Range Interpretation Comments Coronavirus (COVID-19) Not Detected (02/18/21 MAURA (test code = 10:34 AM) Coronavirus (COVID-19) MAURA) [facility] [id number] 15:34:00 Test Item Value Reference Range Interpretation Comments Hgb A1C (test code = Hgb A1C) 5.9 [facility] Hospitalfot[facility] [id number] 15:34:00 Test Item Value Reference Range Interpretation Comments ABO/Rh (test code = ABO/Rh) O POS [facility] [employer] [id number] 15:34:00 Test Item Value Reference Range Interpretation Comments Antibody Scrn (test Negative (02/18/21 10:34 code = Antibody Scrn) AM) [facility] [employer] [id number] 15:34:00 Test Item Value Reference Range Interpretation Comments Glucose Lvl (test code = Glucose Lvl) 111 70-[address] [facility] [employer] [id number] 15:34:00 Test Item Value Reference Range Interpretation Comments BUN (test code = BUN) 21 7-[address] [facility] [employer] [id number] 15:34:00 Test Item Value Reference Range Interpretation Comments Creatinine Lvl (test code = Creatinine 1.32 0.50-1.40 Lvl) [place] 288201-06-04 15:34:00 Test Item Value Reference Range Interpretation Comments Sodium Lvl (test code = Sodium Lvl) 139 135-145 [place] 288201-06-04 15:34:00 Test Item Value Reference Range Interpretation Comments Potassium Lvl (test code = Potassium 4.4 3.5-5.1 Lvl) [place] 288201-06-04 15:34:00 Test Item Value Reference Range Interpretation Comments Chloride Lvl (test code = Chloride Lvl) 107 95-109 [place] 288201-06-04 15:34:00 Test Item Value Reference Range Interpretation Comments CO2 (test code = CO2) 27 24-32 [place] 288201-06-04 15:34:00 Test Item Value Reference Range Interpretation Comments Calcium Lvl (test code = Calcium Lvl) 9.1 8.5-10.5 [place] 288201-06-04 15:34:00 Test Item Value Reference Range Interpretation Comments Total Protein (test code = Total 7.7 6.4-8.4 Protein) [place] 288201-06-04 15:34:00 Test Item Value Reference Range Interpretation Comments Albumin Lvl (test code = Albumin Lvl) 4.0 3.5-5.0 [place] 288201-06-04 15:34:00 Test Item Value Reference Range Interpretation Comments ALT (test code = ALT) 24 See_Comment [Auto mated message] The system which ge nerated this result transmit cesar reference range : <=65. The reference range was not used to interpr et this result as aman l/abnormal. [place] 288201-06-04 15:34:00 Test Item Value Reference Range Interpretation Comments AST (test code = AST) 19 See_Comment [Auto mated message] The system which ge nerated this result transmit cesar reference range : <=37. The reference range was not used to interpr et this result as aman l/abnormal. [place] 288201-06-04 15:34:00 Test Item Value Reference Range Interpretation Comments Alk Phos (test code = Alk Phos) 64 39-136 [facility] [id number] 15:34:00 Test Item Value Reference Range Interpretation Comments Bili Total (test code = Bili Total) 0.4 0.2-1.3 [place] [address]-06-04 15:34:00 Test Item Value Reference Range Interpretation Comments AGAP (test code = AGAP) 9.4 10.0-20.0 [place] [address]-06-04 15:34:00 Test Item Value Reference Range Interpretation Comments B/C Ratio (test code = B/C Ratio) 16 1 6-[address]06-04 15:34:00 Test Item Value Reference Range Interpretation Comments Globulin (test code = Globulin) 3.7 2.7-4.[address]06-04 15:34:00 Test Item Value Reference Range Interpretation Comments A/G Ratio (test code = A/G Ratio) 1.1 1 0.7-1.[address]06-04 15:34:00 Test Item Value Reference Range Interpretation Comments eGFR (test code = eGFR) 38 [place] 598581-06-04 15:34:00 Test Item Value Reference Range Interpretation Comments Segs (test code = Segs) 49.7 45.0-75.0 [place] [address]-06-04 15:34:00 Test Item Value Reference Range Interpretation Comments Lymphocytes (test code = Lymphocytes) 39.6 20.0-40.0 [place] [address]-06-04 15:34:00 Test Item Value Reference Range Interpretation Comments Monocytes (test code = Monocytes) 6.6 2.0-12.0 [place] [address]-06-04 15:34:00 Test Item Value Reference Range Interpretation Comments Eosinophils (test code = 3.6 See_Comment [A utomated message] The Eosinophils) system which ge nerated this result tra nsmitted reference range : <=4.0. The reference r dayana was not used to int erpret this result as normal/abnormal . [place] [address]-06-04 15:34:00 Test Item Value Reference Range Interpretation Comments Basophils (test code = 0.5 See_Comment [Aut omated message] The Basophils) system which ge nerated this result tra nsmitted reference range : <=1.0. The reference r dayana was not used to int erpret this result as normal/abnormal . [facility] HospitalMkwosouNZXMBTBEJV2307-14-25 15:34:00 Test Item Value Reference Range Interpretation Comments Neutrophils # (test code = Neutrophils 3.5 1.5-8.1 #) [facility] HospitalFdvggmkITCYMOHCUJ1339-12-50 15:34:00 Test Item Value Reference Range Interpretation Comments Lymphocytes # (test code = Lymphocytes 2.8 1.0-5.5 #) [facility] HospitalFdzymrbNFGJKDXKNG5617-88-62 15:34:00 Test Item Value Reference Range Interpretation Comments Monocytes # (test code 0.5 See_Comment [Aut omated message] The = Monocytes #) system which generated this result tra nsmitted reference range : <=0.8. The reference r dayana was not used to int erpret this result as normal/abnormal . [facility] HospitalGnnhjrtJBXVPSBCMH6595-81-44 15:34:00 Test Item Value Reference Range Interpretation Comments Eosinophils # (test code 0.3 See_Comment [A utomated message] The = Eosinophils #) system whic h generated this result tra nsmitted reference range : <=0.5. The reference r dayana was not used to int erpret this result as normal/abnormal . [facility] HospitalMsrfcivDYDMHZVQWA0208-53-22 15:34:00 Test Item Value Reference Range Interpretation Comments WBC (test code = WBC) 7.0 3.7-10.4 [facility] HospitalLwngndwTOTAHDEZZR5647-64-03 15:34:00 Test Item Value Reference Range Interpretation Comments RBC (test code = RBC) 4.83 4.20-5.40 [facility] HospitalWsvjgkkJSLYQXECUC6954-30-36 15:34:00 Test Item Value Reference Range Interpretation Comments Hgb (test code = Hgb) 12.7 12.0-16.0 [facility] HospitalYhrvtcyHBNYKRKYRO0294-71-72 15:34:00 Test Item Value Reference Range Interpretation Comments Hct (test code = Hct) 38.3 36.0-48.0 [place] 598581-06-04 15:34:00 Test Item Value Reference Range Interpretation Comments MCV (test code = MCV) 79.3 80.0-98.0 [place] 598581-06-04 15:34:00 Test Item Value Reference Range Interpretation Comments MCH (test code = MCH) 26.3 pg 27.0-31.0 [facility] HospitalNbyknzhNFGDHYIGZP8400-63-14 15:34:00 Test Item Value Reference Range Interpretation Comments MCHC (test code = MCHC) 33.1 32.0-36.0 [facility] HospitalOazpcwbQHFBKIAYSO4154-72-30 15:34:00 Test Item Value Reference Range Interpretation Comments RDW (test code = RDW) 15.1 11.5-14.5 [facility] HospitalKjiebsdSNQJAFATWM8726-47-81 15:34:00 Test Item Value Reference Range Interpretation Comments Platelet (test code = Platelet) 289 133-450 [facility] HospitalLmtijzyLOEQVPYQSW7318-69-94 15:34:00 Test Item Value Reference Range Interpretation Comments MPV (test code = MPV) 8.1 7.4-10.4 [facility] HospitalPwftmqxYLDRRAQSQH8532-18-67 15:34:00 Test Item Value Reference Range Interpretation Comments PT (test code = PT) 13.1 s 12.0-14.7 [facility] HospitalXlsywbdCTCZXZSGFW6976-58-29 15:34:00 Test Item Value Reference Range Interpretation Comments INR (test code = INR) 1.00 1 0.85-1.17 [facility] HospitalWjnlyamGDPOBITKWQ7274-62-10 15:34:00 Test Item Value Reference Range Interpretation Comments PTT (test code = PTT) 28.7 s 22.9-35.8 [facility] CenterMitspggPDZENPMYFS4566-01-05 15:34:00 Test Item Value Reference Range Interpretation Comments Coronavirus (COVID-19) Not Detected (02/18/21 MAURA (test code = 10:34 AM) Coronavirus (COVID-19) MAURA) [facility] UFDIZEDMZ7886-09-42 15:34:00 Test Item Value Reference Range Interpretation Comments Hgb A1C (test code = Hgb A1C) 5.9 [facility] HospitalImapbrsLZZSOAPTLK5629-90-24 15:34:00 Test Item Value Reference Range Interpretation Comments Lymphocytes # (test code = Lymphocytes 2.8 1.0-5.5 #) [facility] HospitalJbdldxnQUPPEDHQWN0279-07-91 15:34:00 Test Item Value Reference Range Interpretation Comments Monocytes # (test code 0.5 See_Comment [Aut omated message] The = Monocytes #) system which generated this result tra nsmitted reference range : <=0.8. The reference r dayana was not used to int erpret this result as normal/abnormal . [facility] HospitalFdubaoaUHCVFOZTYQ0941-87-51 15:34:00 Test Item Value Reference Range Interpretation Comments Eosinophils # (test code 0.3 See_Comment [A utomated message] The = Eosinophils #) system whic h generated this result tra nsmitted reference range : <=0.5. The reference r dayana was not used to int erpret this result as normal/abnormal . [facility] HospitalWmmcdrxZFPVMPPWJX0739-23-36 15:34:00 Test Item Value Reference Range Interpretation Comments WBC (test code = WBC) 7.0 3.7-10.4 [place] 598581-06-04 15:34:00 Test Item Value Reference Range Interpretation Comments RBC (test code = RBC) 4.83 4.20-5.40 [facility] HospitalDwsdkgfIGHKIJSAXI4642-81-18 15:34:00 Test Item Value Reference Range Interpretation Comments Hgb (test code = Hgb) 12.7 12.0-16.0 [place] 598581-06-04 15:34:00 Test Item Value Reference Range Interpretation Comments Hct (test code = Hct) 38.3 36.0-48.0 [facility] HospitalCtrqgezTLVRCUEDVZ7215-42-31 15:34:00 Test Item Value Reference Range Interpretation Comments MCV (test code = MCV) 79.3 80.0-98.0 [facility] HospitalQujjtwtNKVQFMGFEC8834-36-14 15:34:00 Test Item Value Reference Range Interpretation Comments MCH (test code = MCH) 26.3 pg 27.0-31.0 [facility] HospitalSqioosjEFGNPGPQWL9923-13-32 15:34:00 Test Item Value Reference Range Interpretation Comments MCHC (test code = MCHC) 33.1 32.0-36.0 [facility] HospitalCugvlqnLNWNRNFWAC0058-03-15 15:34:00 Test Item Value Reference Range Interpretation Comments RDW (test code = RDW) 15.1 11.5-14.5 [facility] HospitalVfokvzkJILILBNWLW3863-07-12 15:34:00 Test Item Value Reference Range Interpretation Comments Platelet (test code = Platelet) 289 133-450 [facility] HospitalSyqdkdlNLUPLAILIP4679-76-63 15:34:00 Test Item Value Reference Range Interpretation Comments MPV (test code = MPV) 8.1 7.4-10.4 [place] 598581-06-04 15:34:00 Test Item Value Reference Range Interpretation Comments PT (test code = PT) 13.1 s 12.0-14.7 [facility] CenterPedbzqvGAYHCXXLTU9506-57-22 15:34:00 Test Item Value Reference Range Interpretation Comments INR (test code = INR) 1.00 1 0.85-1.17 [facility] HospitalJrphxlaMRJTZZOTET2368-39-83 15:34:00 Test Item Value Reference Range Interpretation Comments PTT (test code = PTT) 28.7 s 22.9-35.8 [id number] 15:34:00 Test Item Value Reference Range Interpretation Comments Coronavirus (COVID-19) Not Detected (02/18/21 MAURA (test code = 10:34 AM) Coronavirus (COVID-19) MAURA) [facility] [id number] 15:34:00 Test Item Value Reference Range Interpretation Comments Hgb A1C (test code = Hgb A1C) 5.[address] [facility] [employer] [id number] 15:34:00 Test Item Value Reference Range Interpretation Comments ABO/Rh (test code = ABO/Rh) O POS [facility] [employer] [id number] 15:34:00 Test Item Value Reference Range Interpretation Comments Antibody Scrn (test Negative (02/18/21 10:34 code = Antibody Scrn) AM) [facility] [employer] [id number] 15:34:00 Test Item Value Reference Range Interpretation Comments Glucose Lvl (test code = Glucose Lvl) 111 70-[address] [facility] [employer]2021-06-04 15:34:00 Test Item Value Reference Range Interpretation Comments BUN (test code = BUN) 21 7-[address] [facility] [employer]2021-06-04 15:34:00 Test Item Value Reference Range Interpretation Comments Creatinine Lvl (test code = Creatinine 1.32 0.50-1.40 Lvl) [employer]2021-06-04 15:34:00 Test Item Value Reference Range Interpretation Comments Sodium Lvl (test code = Sodium Lvl) 139 135-[address] [facility] [employer]2021-06-04 15:34:00 Test Item Value Reference Range Interpretation Comments Potassium Lvl (test code = Potassium 4.4 3.5-5.1 Lvl) [facility] [employer]2021-06-04 15:34:00 Test Item Value Reference Range Interpretation Comments Chloride Lvl (test code = Chloride Lvl) 107 95-109 [facility] [id number] 15:34:00 Test Item Value Reference Range Interpretation Comments CO2 (test code = CO2) 27 24-32 [facility] [id number] 15:34:00 Test Item Value Reference Range Interpretation Comments Calcium Lvl (test code = Calcium Lvl) 9.1 8.5-10.5 [facility] [id number] 15:34:00 Test Item Value Reference Range Interpretation Comments Total Protein (test code = Total 7.7 6.4-8.4 Protein) [facility] [id number] 15:34:00 Test Item Value Reference Range Interpretation Comments Albumin Lvl (test code = Albumin Lvl) 4.0 3.5-5.0 [facility] [id number] 15:34:00 Test Item Value Reference Range Interpretation Comments ALT (test code = ALT) 24 See_Comment [Auto mated message] The system which ge nerated this result transmit cesar reference range : <=65. The reference range was not used to interpr et this result as aman l/abnormal. [facility] [employer] [id number] 15:34:00 Test Item Value Reference Range Interpretation Comments AST (test code = AST) 19 See_Comment [Auto mated message] The system which ge nerated this result transmit cesar reference range : <=37. The reference range was not used to interpr et this result as aman l/abnormal. [facility] [employer] [id number] 15:34:00 Test Item Value Reference Range Interpretation Comments Alk Phos (test code = Alk Phos) 64 39-136 [facility] [id number] 15:34:00 Test Item Value Reference Range Interpretation Comments Bili Total (test code = Bili Total) 0.4 0.2-1.3 [facility] [id number] 15:34:00 Test Item Value Reference Range Interpretation Comments AGAP (test code = AGAP) 9.4 10.0-20.[address] [facility] [employer] [id number] 15:34:00 Test Item Value Reference Range Interpretation Comments B/C Ratio (test code = B/C Ratio) 16 1 6-25 [facility]2021-06-04 15:34:00 Test Item Value Reference Range Interpretation Comments Globulin (test code = Globulin) 3.7 2.7-4.2 [facility]2021-06-04 15:34:00 Test Item Value Reference Range Interpretation Comments A/G Ratio (test code = A/G Ratio) 1.1 1 0.7-1.6 [facility]2021-06-04 15:34:00 Test Item Value Reference Range Interpretation Comments eGFR (test code = eGFR) 38 [facility]DmfexsqOKFCQKCOWW7421-31-70 15:34:00 Test Item Value Reference Range Interpretation Comments Segs (test code = Segs) 49.7 45.0-75.0 [facility] H[id number] 15:34:00 Test Item Value Reference Range Interpretation Comments Lymphocytes (test code = Lymphocytes) 39.6 20.0-40.0 [facility] Ho[id number] 15:34:00 Test Item Value Reference Range Interpretation Comments Monocytes (test code = Monocytes) 6.6 2.0-12.0 [facility] HospitalGqgiqpiPOAKPSURXQ7201-92-35 15:34:00 Test Item Value Reference Range Interpretation Comments Eosinophils (test code = 3.6 See_Comment [A utomated message] The Eosinophils) system which ge nerated this result tra nsmitted reference range : <=4.0. The reference r dayana was not used to int erpret this result as normal/abnormal . [facility] Hospit[id number] 15:34:00 Test Item Value Reference Range Interpretation Comments Basophils (test code = 0.5 See_Comment [Aut omated message] The Basophils) system which ge nerated this result tra nsmitted reference range : <=1.0. The reference r dayana was not used to int erpret this result as normal/abnormal . [facility] Hos[id number] 15:34:00 Test Item Value Reference Range Interpretation Comments Neutrophils # (test code = Neutrophils 3.5 1.5-8.1 #) [facility] [employer] [id number] 15:34:00 Test Item Value Reference Range Interpretation Comments ABO/Rh (test code = ABO/Rh) O POS [facility] [id number] 15:34:00 Test Item Value Reference Range Interpretation Comments Antibody Scrn (test Negative (02/18/21 10:34 code = Antibody Scrn) AM) [facility] [id number] 15:34:00 Test Item Value Reference Range Interpretation Comments Glucose Lvl (test code = Glucose Lvl) 111 70-99 [facility]2021-06-04 15:34:00 Test Item Value Reference Range Interpretation Comments BUN (test code = BUN) 21 7-22 [facility]2021-06-04 15:34:00 Test Item Value Reference Range Interpretation Comments Creatinine Lvl (test code = Creatinine 1.32 0.50-1.40 Lvl) [facility]2021-06-04 15:34:00 Test Item Value Reference Range Interpretation Comments Sodium Lvl (test code = Sodium Lvl) 139 135-145 [facility]2021-06-04 15:34:00 Test Item Value Reference Range Interpretation Comments Potassium Lvl (test code = Potassium 4.4 3.5-5.1 Lvl) [facility] [id number] 22:03:42 Test Item Value Reference Range Interpretation Comments IRON (test code = 4914548548) 80 ug/dL 50-160 TIBC (test code = 4640900039) 386 ug/dL 250-410 % FE SAT (test code = 4130503299) 21 % 20-50 Lab Interpretation (test code = Normal 87759-9) [facility] CenterGLYCOSYLATED HEM[facility]GLOBIN (A1C)2021-01-26 17:18:15 Test Item Value Reference Range Interpretation Comments HGB A1C (test code = 6.0 % 4.0-5.7 H 4548-4) KANU (test code = KANU) Reference RangesNormal: <5.7%Prediabetes: 5.7 - 6.4%Diabetes: > 6.5% Lab Interpretation (test Abnormal code = 86526-2) [facility] CenterFERRITIN [id number] 17:13:28 Test Item Value Reference Range Interpretation Comments FERRITIN (test code = 13.0 ng/mL 11.0-264.0 8645500150) KANU (test code = KANU) Biotin has been reported to cause a negative bias, interpret results relative to patient's use of biotin. Lab Interpretation (test Normal code = 70885-0) [facility] CenterTHYROID STIMULATING [id number] 17:09:08 Test Item Value Reference Range Interpretation Comments TSH (test code = See_Comment [Automated message] 0004865005) The system [employer] generated this result transmitted ref erence range: 0.45 - 4 .70 mIU/L. The refe rence range was not u sed to interpret this result as normal/abnor mal. Lab Interpretation (test Normal code = 09350-3) [facility]. METABOLIC PANEL (56003)2021-01-26 16:38:01 Test Item Value Reference Range Interpretation Comments NA (test code = 138 mmol/L 135-145 4271444495) K (test code = 5.2 mmol/L 3.5-5.0 H 8978188577) CL (test code = 103 mmol/L 98-108 5498453709) CO2 TOTAL (test code = 25 mmol/L 23-31 0532550769) AGAP (test code = 2-16 7345128127) BUN (test code = 23 mg/dL 7-23 2776145332) GLUCOSE (test code = 122 mg/dL 70-110 H 0442852285) CREATININE (test code = 1.15 mg/dL 0.50-1.04 H 8370237285) TOTAL BILI (test code = 0.6 mg/dL 0.1-1.2 2215661685) CALCIUM (test code = 9.5 mg/dL 8.6-10.6 8783858542) T PROTEIN (test code = 6.9 g/dL 6.3-8.2 3495934686) ALBUMIN (test code = 4.4 g/dL 3.5-5.0 4673155501) ALK PHOS (test code = 61 U/L 34-122 2688105527) ALTv (test code = 18 U/L 5-35 1742-6) AST(SGOT) (test code = 36 U/L 13-40 3625875208) eGFR (test code = mL/min/1.73m2 8319386097) KANU (test code = KANU) Association of [...] tests). Lab Interpretation Abnormal (test code = 97253-6) [facility] CenterLIPID PANEL (32874)(TOTAL CHOLESTEROL, TRIGLYCERIDES, HDL)2021-01-26 16:38:01 Test Item Value Reference Range Interpretation Comments CHOL (test code = 229 mg/dL 120-200 H 8894992551) HDL (test code = 49 mg/dL >50 L 4067377689) HDLC RATIO (test code = See_Comment H [Au tomated message] 0399336594) The system [employer] generated this result transmit cesar reference range : <=4.5. The refe rence range was not u sed to interpret th is result as normal/abnormal . TRIG (test code = 165 mg/dL 30-170 3009388600) LDL CHOL (test code = 147 mg/dL See_Comment [Auto mated message] 54391-2) The system [employer] generated this result transmit cesar reference range : <=160. The refe rence range was not u sed to interpret th is result as normal/abnormal . VLDL (test code = 33 mg/dL 5-60 7055510705) Lab Interpretation (test Abnormal code = 13853-8) [facility] WITHOUT [id number] 15:50:14 Test Item Value Reference Range Interpretation [...] MPV (test code = 10.5 fL 9.5-12.9 86221-4) RDW-CV (test code = 14.6 % 12.0-15.5 788-0) RDW-SD (test code = 43.4 fL 39.0-49.9 94134-1) NRBC x10^3 (test <0.01 See_Comment [Automated message] The code = 5414480141) system [facility] generated this result tra nsmitted reference range : 10*3/?L. The reference r dayana was not used to int erpret this result as normal/abnormal . NRBC/100 WBC (test See_Comment [Automat ed message] The code = 9744621984) system [facility] generated this result tra nsmitted reference range : 0.0 - 10.0 /100 WBCs. The reference range was not used to interpr et this result as normal/abnormal . IPF % (test code = 9964491991) [facility] CenterCT ABDOMEN PELVIS W [id number] 21:14:58 Colonic diverticulosis with sigmoid haustral edema [...] hernia.Hepatomegaly with steatosis.Preliminary Report Dictated by Resident: Fidel Dover MD., have reviewed this study and agree withthe above report.[facility] CenterUrinalysis2021-02-28 20:07:00 Test Item Value Reference Range Interpretation Comments APPEARANCE (test code = Cloudy Clear A 8146256459) COLOR (test code = Shirlene Yellow A 8717900396) PH (test code = 4.8-8.0 7803626454) SP GRAVITY (test code = 1.003-1.030 0066117221) GLU U QUAL (test code = Normal Normal 4988336662) BLOOD (test code = Negative Negative 9634468558) KETONES (test code = Negative Negative 0552622792) PROTEIN (test code = 30 mg/dL Negative A 2887-8) UROBILIN (test code = Normal Normal 2231792140) BILIRUBIN (test code = Negative Negative 7731107703) NITRITE (test code = Negative Negative 0120833031) LEUK ULISES (test code = 75/uL Negative A 2091534600) RBC/HPF (test code = See_Comment H [Autom ated message] 4744205294) The system [employer] generated this result transmitted ref erence range: 0 - 3 HP F. The reference range was not used to int erpret this result as normal/abnormal . WBC/HPF (test code = See_Comment H [Autom ated message] 4851821352) The system [employer] generated this result transmitted ref erence range: 0 - 5 HP F. The reference range was not used to int erpret this result as normal/abnormal . BACTERIA (test code = Moderate Negative A 5025905363) MUCOUS (test code = Moderate Negative LPF A 2603703245) SQ EPITH (test code = HPF 6851725497) Lab Interpretation (test Abnormal code = 40362-2) [facility] CenterTroponin [id number] 19:43:00 Test Item Value Reference Range Interpretation Comments TROPONIN I (test 0.002 ng/mL See_Comment [Automated code = 2927448421) message] The system which generated this result [...] ? Lab Interpretation Normal (test code = 01652-6) [facility] CenteraPTT2021-02-28 19:40:00 Test Item Value Reference Range Interpretation Comments APTT Patient (test See_Comment [Automat ed code = 3173-2) message] The system which generated this result transmitted reference range : 23 - 38 Seconds . The reference range was not used to interpr et this result as normal/abnormal . KANU (test code = KANU) The [facility] patient population mean normal value for aPTT is 30 seconds. Lab Interpretation Normal (test code = 95306-2) [facility] CenterProthrombin Time (PT) / [id number] 19:38:00 Test Item Value Reference Range Interpretation [...] tions. Lab Interpretation (test Normal code = 84658-0) [facility] (NA, K, CL, CO2, GLUCOSE, BUN, CREATININE, CA)2020-11-14 19:32:00 Test Item Value Reference Range Interpretation Comments NA (test code = 136 mmol/L 135-145 5656645922) K (test code = 4.2 mmol/L 3.5-5 8025489527) CL (test code = 103 mmol/L 98-108 0439714870) CO2 TOTAL (test code = 25 mmol/L 23-31 5214969478) AGAP (test code = 2-16 3559754396) BUN (test code = 20 mg/dL 7-23 8422663436) GLUCOSE (test code = 148 mg/dL 70-110 H 1030400849) CREATININE (test code = 1.16 mg/dL 0.5-1.04 H 2478646179) CALCIUM (test code = 9.0 mg/dL 8.6-10.6 8527100259) eGFR Calculation mL/min/1.73m2 (Non-) (test code = 6132873022) eGFR Calculation mL/min/1.73m2 () (test code = 6530009721) KANU (test code = KANU) Association of [...] tests). Lab Interpretation Abnormal (test code = 12942-2) [facility] CenterHepatic Function Panel (ALB, T.PRO, BILI T, BU/BC, ALT, AST, ALK PHOS)2020-11-14 19:32:00 Test Item Value Reference Range Interpretation Comments TOTAL BILI (test code = 9053123338) 0.6 mg/dL 0.1-1.1 BILI UNCON (test code = 9594727555) 0.5 mg/dL 0.1-1.1 BILI CONJ (test code = 4285300273) 0.0 mg/dL 0-0.3 T PROTEIN (test code = 1654998557) 6.9 g/dL 6.3-8.2 ALBUMIN (test code = 9463475399) 4.1 g/dL 3.5-5 ALK PHOS (test code = 5049292738) 69 U/L 34-122 ALTv (test code = 1742-6) 11 U/L 5-35 AST(SGOT) (test code = 2152601984) 19 U/L 13-40 Lab Interpretation (test code = Normal 17917-8) [facility] CenterLipase [id number] 19:31:00 Test Item Value Reference Range Interpretation Comments LIPASE (test code = 8029253628) 42 U/L 0-220 Lab Interpretation (test code = Normal 26913-0) [facility] CenterCOVID-19 (ID NOW RAPID TESTING)2020-11-14 19:31:00 Test Item Value Reference Range Interpretation Comments SARS-CoV-2 Rapid ID NOW Not Detected Not Detected (test code = 16974-8) KANU (test code = KANU) ID NOW COVID-19 Assay is an isothermal nucleic acid amplification test intended for the qualitative detection of nucleic acid from SARS-CoV-2 viral RNA in nasopharyngeal ([employer]) specimens. It is used under Emergency Use [...] indicated. Lab Interpretation Normal (test code = 01097-6) [facility] with Xvjsxigxvuai9361-93-08 19:16:00 Test Item Value Reference Range Interpretation Comments WBC (test code = See_Comment H [Automated 9490-2) message] The sy stem which generated this result transmitted reference range : 4.30 - 11.10 10*3/?L. The reference range was not used to interpret this result as normal/abnormal . RBC (test code = See_Comment [Automated 689-8) message] The sy stem which generated this [...] RDW-SD (test code = 41.3 fL 39-49.9 57101-4) RDW-CV (test code = 14.1 % 12-15.5 788-0) PLT (test code = See_Comment [Automated 777-3) message] The sy stem which generated this result transmitted reference range : 166 - 358 10*3/ ?L. The reference r dayana was not used to interpret this result as normal/abnormal . MPV (test code = 10.1 fL 9.5-12.9 73341-6) NRBC/100 WBC (test See_Comment [Automat ed code = 4743335906) message] The system which generated this result transmitted reference range : 0.0 - 10.0 /100 WBCs. The refer ence range was not u sed to interpret th is result as normal/abnormal . NRBC x10^3 (test code <0.01 See_Comment [Auto mated = 2839164062) message] The s ystem which generated this result transmitted reference range : 10*3/?L. The reference range was not used to interpret this result as normal/abnormal . GRAN MAT (NEUT) % 73.2 % (test code = 770-8) IMM GRAN % (test code 0.70 % = 4623584551) LYMPH % (test code = 18.1 % 736-9) MONO % (test code = 6.6 % 5905-5) EOS % (test code = 1.1 % 713-8) BASO % (test code = 0.3 % 706-2) GRAN MAT x10^3(ANC) 8.41 10*3/uL 1.88-7.09 H (test code = 4656919438) IMM GRAN x10^3 (test 0.08 10*3/uL 0-0.06 H code = 4136521263) LYMPH x10^3 (test code 2.08 10*3/uL 1.32-3.29 = 731-0) MONO x10^3 (test code 0.76 10*3/uL 0.33-0.92 = 742-7) EOS x10^3 (test code = 0.13 10*3/uL 0.03-0.39 711-2) BASO x10^3 (test code 0.04 10*3/uL 0.01-0.07 = 704-7) Lab Interpretation Abnormal (test code = 84026-8) [facility] CenterDEXA AXIAL (HIP AND SPINE)2020-08-25 20:15:51 [...] for each 1.5 SD below the mean. [facility] [[email or web address]], Radiant Results Inft User - 08/25/2020 2:16 [...] doubles for each 1.5 SD below the mean.[facility] CenterXR HIPS 2 VW BILATERAL 2020-08-25 [...] or dislocation in right hip or left hipjoint.[facility] COVID-19 (ID NOW RAPID TESTING)2020-06-11 20:18:00 Test Item Value Reference Range Interpretation Comments SARS-CoV-2 Rapid ID NOW Not Detected Not Detected (test code = 20216-7) KANU (test code = KANU) ID NOW COVID-19 Assay is an isothermal nucleic acid amplification test intended for the qualitative detection of nucleic acid from SARS-CoV-2 viral RNA in nasopharyngeal ([employer]) specimens. It is used under Emergency Use [...] indicated. Lab Interpretation Normal (test code = 78523-4) [facility] CenterCOVID-19 (ID NOW RAPID TESTING)2020-06-03 22:06:00 Test Item Value Reference Range Interpretation Comments SARS-CoV-2 Rapid ID NOW Not Detected Not Detected (test code = 03112-2) KANU (test code = KANU) ID NOW COVID-19 Assay is an isothermal nucleic acid amplification test intended for the qualitative detection of nucleic acid from SARS-CoV-2 viral RNA in nasopharyngeal ([employer]) specimens. It is used under Emergency Use [...] indicated. Lab Interpretation Normal (test code = 74681-6) [facility] CenterJessica [id number] 21:37:00 Test Item Value Reference Range Interpretation Comments TROPONIN I (test 0.002 ng/mL See_Comment [Automated code = 2389823610) message] The system which generated this result [...] ? Lab Interpretation Normal (test code = 90380-3) [facility] CenterN-TERMINAL [id number] 21:34:00 Test Item Value Reference Range Interpretation Comments NT-proBNP (test code 62 pg/mL See_Comment [Autom ated = 1872116591) message] The system which generated this result transmitted reference range : <=450. The reference range was not used to interpret this result as normal/abnormal . KANU (test code = KANU) Biotin has been reported to cause a negative bias, interpret results relative to patient's use of biotin. Lab Interpretation Normal (test code = 91013-2) [facility] CenterProthrombin Time (PT) / [id number] 21:30:00 Test Item Value Reference Range Interpretation [...] tions. Lab Interpretation (test Normal code = 15451-2) [facility] CenterCOMP. METABOLIC PANEL (38420)2020-06-03 21:25:00 Test Item Value Reference Range Interpretation Comments NA (test code = 139 mmol/L 135-145 4170128968) K (test code = 4.1 mmol/L 3.5-5 3502564326) CL (test code = 101 mmol/L 98-108 7105461997) CO2 TOTAL (test code = 24 mmol/L 23-31 6434771269) AGAP (test code = 2-16 3154151243) BUN (test code = 22 mg/dL 7-23 7392859626) GLUCOSE (test code = 118 mg/dL 70-110 H 5544033141) CREATININE (test code = 1.22 mg/dL 0.5-1.04 H 8750938420) TOTAL BILI (test code = 0.4 mg/dL 0.1-1.3 2894547546) CALCIUM (test code = 10.2 mg/dL 8.6-10.6 8919578130) T PROTEIN (test code = 7.7 g/dL 6.3-8.2 5010235897) ALBUMIN (test code = 4.5 g/dL 3.5-5 5362994626) ALK PHOS (test code = 61 U/L 34-122 4260049504) ALTv (test code = 23 U/L 5-35 1742-6) AST(SGOT) (test code = 27 U/L 13-40 2756833840) eGFR Calculation mL/min/1.73m2 (Non-) (test code = 5257204607) eGFR Calculation mL/min/1.73m2 () (test code = 2198448860) KANU (test code = KANU) Association of [...] tests). Lab Interpretation Abnormal (test code = 66987-5) [facility] CenterXR CHEST 1 VW [id number] 21:16:49 Mild cardiomegaly. Short sliding hiatal hernia. No detectable radiographic findings to suggest COVID-19 pneumonia. Disclaimer: Generally, the findings on chest imaging in COVID-19 are notspecific, andoverlap with other infections, including influenza, H1N1,SARS and MERS.According to the Centers for Disease Control (CDC) and recent statement ofthe [employer], viral testing remains the [...] Disease Control (CDC) and recent statement ofthe [employer], viral testing remains the only specificmethod of diagnosis. Confirmation with the viral test is required, even ifradiologic findings are suggestive of COVID-[address]. Preliminary Repor t Dictated by Resident: Saud Chatterjee MD., have reviewed this study and agree with theabove report.[facility] CenterCBC with Rzwhheqrsmvw2202-75-05 21:09:00 Test Item Value Reference Range Interpretation Comments WBC (test code = See_Comment [Automated message] 6690-2) The system [employer] generated this result transmitted ref erence range: 4.30 - 1 1.10 10*3/?L. The re ference range was not u sed to interpret this result as normal/abnor mal. RBC (test code = See_Comment [Automated message] 789-8) The system [employer] generated this result transmitted ref erence range: [...] RDW-SD (test code 41.1 fL 39-49.9 = 81174-3) RDW-CV (test code 13.9 % 12-15.5 = 788-0) PLT (test code = See_Comment [Automated message] 777-3) The system [employer] generated this result transmitted ref erence range: 166 - 35 8 10*3/?L. The re ference range was not u sed to interpret this result as normal/abnor mal. MPV (test code = 10.3 fL 9.5-12.9 39553-2) NRBC/100 WBC (test See_Comment [Automat ed message] code = 2668147086) The syste Ratio which generated this result transmitted ref erence range: 0.0 - 10 .0 /100 WBCs. The refer ence range was not u sed to interpret this result as normal/abnor mal. NRBC x10^3 (test <0.01 See_Comment [Automated message] code = 8995469135) The syste m which generated this result transmitted ref erence range: 10*3/?L. The reference range was not used to interpr et this result as normal/abnormal . GRAN MAT (NEUT) % 52.1 % (test code = 770-8) IMM GRAN % (test 0.40 % code = 0527137818) LYMPH % (test code 37.9 % = 736-9) MONO % (test code 6.8 % = 5905-5) EOS % (test code = 2.4 % 713-8) BASO % (test code 0.4 % = 706-2) GRAN MAT 3.66 10*3/uL 1.88-7.09 x10^3(ANC) (test code = 5754991481) IMM GRAN x10^3 0.03 10*3/uL 0-0.06 (test code = 2863055021) LYMPH x10^3 (test 2.67 10*3/uL 1.32-3.29 code = 731-0) MONO x10^3 (test 0.48 10*3/uL 0.33-0.92 code = 742-7) EOS x10^3 (test 0.17 10*3/uL 0.03-0.39 code = 711-2) BASO x10^3 (test 0.03 10*3/uL 0.01-0.07 code = 704-7) [facility] GLUCOSE (AUTOMATED)2019-12-09 21:03:00 Test Item Value Reference Range Interpretation Comments POCT GLU (test code = 0056149359) 184 mg/dL 70-110 H Lab Interpretation (test code = Abnormal 85923-5) [facility] GLUCOSE (AUTOMATED)2019-12-09 16:38:00 Test Item Value Reference Range Interpretation Comments POCT GLU (test code = 0677207815) 157 mg/dL 70-110 H Lab Interpretation (test code = Abnormal 45349-7) [facility] GNL 2019-12-09 15:52:00 Test Item Value Reference Range Interpretation Comments Coronavirus COVID-19 Not Detected Not Detected (test code = 7305091904) KANU (test code = KANU) Not Detected: A negative result does not preclude COVID-19 infection and should not be used as the sole basis for treatment or other patient management decisions. Negative results must be combined with clinical observations, patient history, and epidemiological information. Presumptive Positive: Specimen will be sent to [facility] for confirmation testing. Inconclusive: Specimen will be sent to [facility] for additional testing. Invalid: Please collect a new specimen for repeat patient testing. Disclaimer:This test was developed and its performance characteristics determined by [facility]. It has not been cleared [...] Presumptive Positive: Specimen will be sent to [facility] for confirmation testing. Inconclusive: Specimen will be sent to [facility] for additional testing. Invalid: Please collect a new specimen for repeat patient testing. Disclaimer:This test was developed and its performance characteristics determined by [facility]. It has not been cleared [...] testing. Lab Interpretation Normal (test code = 47403-3) [facility] 12:32:00 Test Item Value Reference Range Interpretation Comments POCT GLU (test code = 6349335875) 157 mg/dL 70-110 H Lab Interpretation (test code = Abnormal 95144-9) [facility] [id number] 12:24:00 Test Item Value Reference Range Interpretation Comments TSH (test code = See_Comment H [Automated message] 3747816367) The system [employer] generated this result transmitted ref erence range: 0.45 - 4 .70 mIU/L. The refe rence range was not u sed to interpret this result as normal/abnor mal. Lab Interpretation (test Abnormal code = 24697-1) [facility] (for use with [facility] Practice [...] . KANU (test code = KANU) The [facility] patient population mean normal value for aPTT is 30 seconds. Lab Interpretation Abnormal (test code = 13421-4) [facility] (NA, K, CL, CO2, GLUCOSE, BUN, CREATININE, CA)2019-12-09 11:53:00 Test Item Value Reference Range Interpretation Comments NA (test code = 136 mmol/L 135-145 3541778855) K (test code = 4.0 mmol/L 3.5-5 0521001679) CL (test code = 100 mmol/L 98-108 6303338969) CO2 TOTAL (test code = 22 mmol/L 23-31 L 0872996988) AGAP (test code = 2-16 0806153966) BUN (test code = 15 mg/dL 7-23 0003445213) GLUCOSE (test code = 155 mg/dL 70-110 H 7792507946) CREATININE (test code = 1.23 mg/dL 0.5-1.04 H 4751924500) CALCIUM (test code = 9.8 mg/dL 8.6-10.6 2937823760) eGFR Calculation mL/min/1.73m2 (Non-) (test code = 8673178514) eGFR Calculation mL/min/1.73m2 () (test code = 9626121762) KANU (test code = KANU) Association of [...] tests). Lab Interpretation Abnormal (test code = 17068-1) [facility] WITH [id number] 11:27:00 Test Item Value Reference Range Interpretation Comments WBC (test code = See_Comment [Automated 6481-2) message] The sy stem which generated this result transmitted reference range : 4.30 - 11.10 10*3/?L. The reference range was not used to interpret this result as normal/abnormal . RBC (test code = See_Comment H [Automated 930-8) message] The sy stem which generated this [...] RDW-SD (test code = 42.8 fL 39-49.9 97790-3) RDW-CV (test code = 14.6 % 12-15.5 788-0) PLT (test code = See_Comment [Automated 777-3) message] The sy stem which generated this result transmitted reference range : 166 - 358 10*3/ ?L. The reference r dayana was not used to interpret this result as normal/abnormal . MPV (test code = 10.2 fL 9.5-12.9 33673-2) NRBC/100 WBC (test See_Comment [Automat ed code = 7817493853) message] The system which generated this result transmitted reference range : 0.0 - 10.0 /100 WBCs. The refer ence range was not u sed to interpret th is result as normal/abnormal . NRBC x10^3 (test code <0.01 See_Comment [Auto mated = 4805282161) message] The s ystem which generated this result transmitted reference range : 10*3/?L. The reference range was not used to interpret this result as normal/abnormal . GRAN MAT (NEUT) % 51.0 % (test code = 770-8) IMM GRAN % (test code 0.50 % = 6135823863) LYMPH % (test code = 36.8 % 736-9) MONO % (test code = 8.2 % 5905-5) EOS % (test code = 3.1 % 713-8) BASO % (test code = 0.4 % 706-2) GRAN MAT x10^3(ANC) 4.10 10*3/uL 1.88-7.09 (test code = 8780341952) IMM GRAN x10^3 (test 0.04 10*3/uL 0-0.06 code = 5134861644) LYMPH x10^3 (test code 2.96 10*3/uL 1.32-3.29 = 731-0) MONO x10^3 (test code 0.66 10*3/uL 0.33-0.92 = 742-7) EOS x10^3 (test code = 0.25 10*3/uL 0.03-0.39 711-2) BASO x10^3 (test code 0.03 10*3/uL 0.01-0.07 = 704-7) Lab Interpretation Abnormal (test code = 11816-9) [facility] GLUCOSE (AUTOMATED)2019-12-09 00:28:00 Test Item Value Reference Range Interpretation Comments POCT GLU (test code = 6336691755) 208 mg/dL 70-110 H Lab Interpretation (test code = Abnormal 58563-0) [facility] CenterURINE [id number] 21:28:00 Test Item Value Reference Range Interpretation Comments URINE CULTURE (test No aerobic organisms code = 630-4) isolated [facility] GLUCOSE (AUTOMATED)2019-12-08 21:15:00 Test Item Value Reference Range Interpretation Comments POCT GLU (test code = 4840123400) 157 mg/dL 70-110 H Lab Interpretation (test code = Abnormal 59688-9) [facility]TT2020-[facility]-23 20:10:00 Test Item Value Reference Range Interpretation Comments APTT Patient (test See_Comment H [Automat ed code = 3173-2) message] The system which generated this result transmitted reference range : 23 - 38 Seconds . The reference range was not used to interpr et this result as normal/abnormal . KANU (test code = KANU) The [facility] patient population mean normal value for aPTT is 30 seconds. Lab Interpretation Abnormal (test code = 39031-0) [facility] GLUCOSE (AUTOMATED)2019-12-08 16:46:00 Test Item Value Reference Range Interpretation Comments POCT GLU (test code = 1404901105) 172 mg/dL 70-110 H Lab Interpretation (test code = Abnormal 09071-4) [facility] GLUCOSE (AUTOMATED)2019-12-08 12:20:00 Test Item Value Reference Range Interpretation Comments POCT GLU (test code = 9989345396) 159 mg/dL 70-110 H Lab Interpretation (test code = Abnormal 98651-7) [facility] (for use with [facility]arin Practice [...] . KANU (test code = KANU) The [facility] patient population mean normal value for aPTT is 30 seconds. Lab Interpretation Abnormal (test code = 76158-1) [facility] WITH [id number] 07:05:00 Test Item Value Reference Range Interpretation [...] RDW-SD (test code = 41.9 fL 39-49.9 06409-2) RDW-CV (test code = 14.7 % 12-15.5 788-0) PLT (test code = See_Comment [Automated 777-3) message] The sy stem which generated this result transmitted reference range : 166 - 358 10*3/ ?L. The reference r dayana was not used to interpret this result as normal/abnormal . MPV (test code = 11.1 fL 9.5-12.9 79155-9) NRBC/100 WBC (test See_Comment [Automat ed code = 0533409957) message] The system which generated this result transmitted reference range : 0.0 - 10.0 /100 WBCs. The refer ence range was not u sed to interpret th is result as normal/abnormal . NRBC x10^3 (test code <0.01 See_Comment [Auto mated = 0291336832) message] The s ystem which generated this result transmitted reference range : 10*3/?L. The reference range was not used to interpret this result as normal/abnormal . GRAN MAT (NEUT) % 61.6 % (test code = 770-8) IMM GRAN % (test code 0.40 % = 2030076740) LYMPH % (test code = 28.3 % 736-9) MONO % (test code = 8.8 % 5905-5) EOS % (test code = 0.7 % 713-8) BASO % (test code = 0.2 % 706-2) GRAN MAT x10^3(ANC) 6.19 10*3/uL 1.88-7.09 (test code = 0800274885) IMM GRAN x10^3 (test 0.04 10*3/uL 0-0.06 code = 4797479736) LYMPH x10^3 (test code 2.85 10*3/uL 1.32-3.29 = 731-0) MONO x10^3 (test code 0.89 10*3/uL 0.33-0.92 = 742-7) EOS x10^3 (test code = 0.07 10*3/uL 0.03-0.39 711-2) BASO x10^3 (test code <0.03 0.01-0.07 = 704-7) Lab Interpretation Abnormal (test code = 11712-0) [facility]2019-12-08 01:01:00 Test Item Value Reference Range Interpretation Comments POCT GLU (test code = 150 mg/dL 70-110 H Notifi ed Provider 8642838687) Lab Interpretation (test Abnormal code = 39692-6) [facility] (for use with [facility] Practice [...] . KANU (test code = KANU) The [facility] patient population mean normal value for aPTT is 30 seconds. Lab Interpretation Abnormal (test code = 60685-9) [facility] GLUCOSE (AUTOMATED)2019-12-07 21:50:00 Test Item Value Reference Range Interpretation Comments POCT GLU (test code = 2712626959) 152 mg/dL 70-110 H Lab Interpretation (test code = Abnormal 41640-1) [facility] GLUCOSE (AUTOMATED)2019-12-07 16:50:00 Test Item Value Reference Range Interpretation Comments POCT GLU (test code = 8410904407) 145 mg/dL 70-110 H Lab Interpretation (test code = Abnormal 56319-7) [facility] CenterGlycosylated Hemoglobin (A1C)2019-12-07 14:03:00 Test Item [...] Indicated Lab Interpretation Abnormal (test code = 10921-7) [facility] GLUCOSE (AUTOMATED)2019-12-07 13:38:00 Test Item Value Reference Range Interpretation Comments POCT GLU (test code = 6747585012) 134 mg/dL 70-110 H Lab Interpretation (test code = Abnormal 94794-8) [facility] (for use with [facility] Practice [...] . KANU (test code = KANU) The [facility] patient population mean normal value for aPTT is 30 seconds. Lab Interpretation Abnormal (test code = 47510-2) [facility] CHEST PULMONARY [id number] 04:05:36 Right upper lobe segmental pulmonary emboli. [...] reviewed this study and agree with theabove report.[facility] CenterProthrombin Time (PT) / INR 2019-12-07 04:05:00 Test Item Value Reference Range Interpretation Comments PROTIME PATIENT (test See_Comment [Auto mated message] code = 5964-2) The system ich generated this result transmitted ref erence range: 12.0 - 1 4.7 Seconds. The re ference range was not u sed to interpret this result as normal/abnor mal. INR (test code = 6301-6) Nor mal INR <1.1; Warfarin Therap eutic range 2.0 to 3. 0 or 2.5 to 3.5, dep ending upon the indica tions. Lab Interpretation (test Normal code = 22991-2) [facility]TT2020-03-22 04:04:00 Test Item Value Reference Range Interpretation Comments APTT Patient (test See_Comment [Automat ed code = 3173-2) message] The system which generated this result transmitted reference range : 23 - 38 Seconds . The reference range was not used to interpr et this result as normal/abnormal . KANU (test code = KANU) The [facility] patient population mean normal value for aPTT is 30 seconds. Lab Interpretation Normal (test code = 58479-7) [facility] CenterUrinalysis2020-03-22 03:34:00 Test Item Value Reference Range Interpretation Comments APPEARANCE (test code = Hazy Clear A 4454610270) COLOR (test code = Yellow Yellow 5387450906) PH (test code = 4.8-8.0 7525537550) SP GRAVITY (test code = 1.003-1.030 7673862673) GLU U QUAL (test code = Normal Normal 1954984477) BLOOD (test code = Negative Negative INTERFERE NCE FROM 2211079375) ASCORBIC ACID M AY CAUSE FALSE NEG ATIVE RESULT KETONES (test code = 5 mg/dL Negative A 0592970705) PROTEIN (test code = 30 mg/dL Negative A 2887-8) UROBILIN (test code = Normal Normal 2354580520) BILIRUBIN (test code = Negative Negative 6517533577) NITRITE (test code = Negative Negative 0819915454) LEUK ULISES (test code = 250/uL Negative A 8188813249) RBC/HPF (test code = See_Comment H [Autom ated message] 9599740155) The system [employer] generated this result transmitted ref erence range: 0 - 3 HP F. The reference range was not used to int erpret this result as normal/abnormal . WBC/HPF (test code = See_Comment H [Autom ated message] 6140055273) The system [employer] generated this result transmitted ref erence range: 0 - 5 HP F. The reference range was not used to int erpret this result as normal/abnormal . BACTERIA (test code = Few Negative A 3110023346) MUCOUS (test code = Slight Negative LPF A 2066576765) SQ EPITH (test code = HPF 5422263251) HYAL CAST (test code = See_Comment H [Aut omated message] 9036193412) The system [employer] generated this result transmitted ref erence range: <=2 LPF. The reference range was not used to int erpret this result as normal/abnormal . TRANS EPI (test code = See_Comment H [Aut omated message] 5617255431) The system [employer] generated this result transmitted ref erence range: <=1 HPF. The reference range was not used to int erpret this result as normal/abnormal . GLORIA EPITH (test code = See_Comment H [Aut omated message] 9434114731) The system [employer] generated this result transmitted ref erence range: <=1 HPF. The reference range was not used to int erpret this result as normal/abnormal . Lab Interpretation (test Abnormal code = 52372-3) [facility] 2 [id number] 02:52:25 No acute cardiopulmonary abnormality. Preliminary Report [...] reviewed this study and agree with theabove report.[facility] [id number] 02:31:00 Test Item Value Reference Range Interpretation Comments TROPONIN I (test 0.008 ng/mL See_Comment [Automated code = 9572741989) message] The system which generated this result [...] ? Lab Interpretation Normal (test code = 52516-8) [facility] (NA, K, CL, CO2, GLUCOSE, BUN, CREATININE, CA)2019-12-07 02:19:00 Test Item Value Reference Range Interpretation Comments NA (test code = 141 mmol/L 135-145 8953104333) K (test code = 4.0 mmol/L 3.5-5 7812559986) CL (test code = 102 mmol/L 98-108 6001341367) CO2 TOTAL (test code = 22 mmol/L 23-31 L 4657379922) AGAP (test code = 2-16 H 4119140912) BUN (test code = 17 mg/dL 7-23 6719872882) GLUCOSE (test code = 109 mg/dL 70-110 6884428792) CREATININE (test code = 1.18 mg/dL 0.5-1.04 H 1664648621) CALCIUM (test code = 10.2 mg/dL 8.6-10.6 5113860905) eGFR Calculation mL/min/1.73m2 (Non-) (test code = 1211693518) eGFR Calculation mL/min/1.73m2 () (test code = 1450884870) KANU (test code = KANU) Association of [...] tests). Lab Interpretation Abnormal (test code = 90833-6) [facility] CenterHepatic Function Panel (ALB, T.PRO, BILI T, BU/BC, ALT, AST, ALK PHOS)2019-12-07 02:19:00 Test Item Value Reference Range Interpretation Comments TOTAL BILI (test code = 5495846116) 0.4 mg/dL 0.1-1.1 BILI UNCON (test code = 1319332764) 0.3 mg/dL 0.1-1.1 BILI CONJ (test code = 5034924201) 0.0 mg/dL 0-0.3 T PROTEIN (test code = 3196918521) 8.2 g/dL 6.3-8.2 ALBUMIN (test code = 7531552565) 4.9 g/dL 3.5-5 ALK PHOS (test code = 3670114412) 70 U/L 34-122 ALTv (test code = 1742-6) 27 U/L 5-35 AST(SGOT) (test code = 6931010271) 35 U/L 13-40 Lab Interpretation (test code = Normal 36863-2) [facility] CenterLipase [id number] 02:19:00 Test Item Value Reference Range Interpretation Comments LIPASE (test code = 7618738868) 95 U/L 0-220 Lab Interpretation (test code = Normal 22797-0) [facility] CenterAD,CLC OR LCC ONLY - INFLUENZA A & B DIRECT [id number] 02:17:00 Test Item Value Reference Range Interpretation Comments Influenza A (test code = 25240-8) Negative Negative Influenza B (test code = 46529-0) Negative Negative Lab Interpretation (test code = Normal 80232-0) [facility] WITH [id number] 01:58:00 Test Item Value Reference Range Interpretation Comments WBC (test code = See_Comment [Automated message] 0590-2) The system [employer] generated this result transmitted ref erence range: 4.30 - 1 1.10 10*3/?L. The re ference range was not u sed to interpret this result as normal/abnor mal. RBC (test code = See_Comment [Automated message] 759-8) The system [employer] generated this result transmitted ref erence range: [...] RDW-SD (test code 41.4 fL 39-49.9 = 60809-6) RDW-CV (test code 13.9 % 12-15.5 = 788-0) PLT (test code = See_Comment [Automated message] 777-3) The system whic h generated this result transmitted ref erence range: 166 - 35 8 10*3/?L. The re ference range was not u sed to interpret this result as normal/abnor mal. MPV (test code = 10.1 fL 9.5-12.9 68673-2) NRBC/100 WBC (test See_Comment [Automat ed message] code = 0183510184) The syste m which generated this result transmitted ref erence range: 0.0 - 10 .0 /100 WBCs. The refer ence range was not u sed to interpret this result as normal/abnor mal. NRBC x10^3 (test <0.01 See_Comment [Automated message] code = 7906729421) The syste m which generated this result transmitted ref erence range: 10*3/?L. The reference range was not used to interpr et this result as normal/abnormal . GRAN MAT (NEUT) % 53.5 % (test code = 770-8) IMM GRAN % (test 0.40 % code = 1320711358) LYMPH % (test code 35.7 % = 736-9) MONO % (test code 7.5 % = 5905-5) EOS % (test code = 2.6 % 713-8) BASO % (test code 0.3 % = 706-2) GRAN MAT 3.87 10*3/uL 1.88-7.09 x10^3(ANC) (test code = 3873506182) IMM GRAN x10^3 0.03 10*3/uL 0-0.06 (test code = 2157229409) LYMPH x10^3 (test 2.58 10*3/uL 1.32-3.29 code = 731-0) MONO x10^3 (test 0.54 10*3/uL 0.33-0.92 code = 742-7) EOS x10^3 (test 0.19 10*3/uL 0.03-0.39 code = 711-2) BASO x10^3 (test <0.03 0.01-0.07 code = 704-7) [facility] CenterXR [facility]ST 2 [id number] 01:30:47 No acute cardiopulmonary abnormality. Preliminary Report [...] reviewed this study and agree with the abovereport.[facility] CenterADC,CLC OR LCC ONLY - INFLUENZA A & B DIRECT [id number] 01:10:00 Test Item Value Reference Range Interpretation Comments Influenza A (test code = 25673-7) Negative Negative Influenza B (test code = 25451-2) Negative Negative Lab Interpretation (test code = Normal 52228-3) [facility] CenterPO[facility] FLU A AND B (MOLECULAR)2019-11-09 01:21:00 Test Item Value Reference Range Interpretation Comments POCT INFLUENZA A (test neg Negative - code = 3840) Negative POCT INFLUENZA B (test neg Negative - code = 3841) Negative KANU (test code = KANU) accurate development and interpretation of all internal controls Lab Interpretation Normal (test code = 82454-8) [facility] CenterMICROALBUMIN [id number] 16:21:00 Test Item Value Reference Range Interpretation Comments CREAT U (test 230.5 mg/dL code = 3028437118) MICROALB U 23 ug/mL 0-45 (test code = 06275-4) MICROAL/CR See_Comment [Automated (test code = message] The 9318-7) system which generated this result transmitted reference range : 0 - 30 mg/g of creatinine. The reference range was not used to interpret this result as normal/abnormal . KANU (test code Normal: <30 mg/g = KANU) creatinineMicroalbuminur ia: 30 - 299 mg/g creatinineClinical albuminuria: > 300 mg/g creatinine [facility] CenterMICROALBUMIN [id number] 16:21:00 Test Item Value Reference Range Interpretation Comments CREAT U (test 230.5 mg/dL code = 0555023097) MICROALB U 23 ug/mL 0-45 (test code = 23210-8) MICROAL/CR See_Comment [Automated (test code = message] The 9318-7) system which generated this result transmitted reference range : 0 - 30 mg/g of creatinine. The reference range was not used to interpret this result as normal/abnormal . KANU (test code Normal: <30 mg/g = KANU) creatinineMicroalbuminur ia: 30 - 299 mg/g creatinineClinical albuminuria: > 300 mg/g creatinine [facility] CenterTHYROID STIMULATING [id number] 19:20:00 Test Item Value Reference Range Interpretation Comments TSH (test code = See_Comment [Automated message] 0909923932) The system [employer] generated this result transmitted ref erence range: 0.45 - 4 .70 mIU/L. The refe rence range was not u sed to interpret this result as normal/abnor mal. Lab Interpretation (test Normal code = 45102-3) [facility] CenterTHYROID STIMULATING [id number] 19:20:00 Test Item Value Reference Range Interpretation Comments TSH (test code = See_Comment [Automated message] 6748996227) The system [employer] generated this result transmitted ref erence range: 0.45 - 4 .70 mIU/L. The refe rence range was not u sed to interpret this result as normal/abnor mal. Lab Interpretation (test Normal code = 82207-9) [facility] CenterLIPID PANEL (71368)(TOTAL CHOLESTEROL, TRIGLYCERIDES, HDL)2019-10-30 18:53:00 Test Item Value Reference Range Interpretation Comments CHOL (test code = 250 mg/dL 120-200 H 1272563120) HDL (test code = 46 mg/dL >50 L 7336311945) HDLC RATIO (test code = See_Comment H [Au tomated message] 1717085702) The system [employer] generated this result transmit cesar reference range : <=4.5. The refe rence range was not u sed to interpret th is result as normal/abnormal . TRIG (test code = 162 mg/dL 30-170 8019840196) LDL CHOL (test code = 172 mg/dL See_Comment H [Auto mated message] 90426-4) The system [employer] generated this result transmit cesar reference range : <=160. The refe rence range was not u sed to interpret th is result as normal/abnormal . VLDL (test code = 32 mg/dL 5-60 6915537651) Lab Interpretation (test Abnormal code = 94468-1) [facility] CenterLIPID PANEL (04235)(TOTAL CHOLESTEROL, TRIGLYCERIDES, HDL)2019-10-30 18:53:00 Test Item Value Reference Range Interpretation Comments CHOL (test code = 250 mg/dL 120-200 H 0159971492) HDL (test code = 46 mg/dL >50 L 9356680461) HDLC RATIO (test code = See_Comment H [Au tomated message] 2649167133) The system [employer] generated this result transmit cesar reference range : <=4.5. The refe rence range was not u sed to interpret th is result as normal/abnormal . TRIG (test code = 162 mg/dL 30-170 2720434024) LDL CHOL (test code = 172 mg/dL See_Comment H [Auto mated message] 88516-3) The system [employer] generated this result transmit cesar reference range : <=160. The refe rence range was not u sed to interpret th is result as normal/abnormal . VLDL (test code = 32 mg/dL 5-60 8724049321) Lab Interpretation (test Abnormal code = 62396-9) [facility] CenterCOMP. METABOLIC PANEL (55785)2019-10-30 18:52:00 Test Item Value Reference Range Interpretation Comments NA (test code = 140 mmol/L 135-145 2891310905) K (test code = 4.8 mmol/L 3.5-5 9850406856) CL (test code = 102 mmol/L 98-108 6426864616) CO2 TOTAL (test code = 28 mmol/L 23-31 9704132510) AGAP (test code = 2-16 1199036175) BUN (test code = 28 mg/dL 7-23 H 0202619279) GLUCOSE (test code = 99 mg/dL 70-110 9640627207) CREATININE (test code = 1.56 mg/dL 0.5-1.04 H 5556671564) TOTAL BILI (test code = 0.5 mg/dL 0.1-1.4 3206447811) CALCIUM (test code = 10.3 mg/dL 8.6-10.6 0299462841) T PROTEIN (test code = 7.1 g/dL 6.3-8.2 5934169436) ALBUMIN (test code = 4.5 g/dL 3.5-5 9282227873) ALK PHOS (test code = 57 U/L 34-122 0522417423) ALTv (test code = 19 U/L 5-35 1742-6) AST(SGOT) (test code = 23 U/L 13-40 6430983781) eGFR Calculation mL/min/1.73m2 (Non-) (test code = 6770904451) eGFR Calculation mL/min/1.73m2 () (test code = 0423460455) KANU (test code = KANU) Association of [...] tests). Lab Interpretation Abnormal (test code = 99597-3) [facility] [place]. METABOLIC PANEL ([id number])2019-10-30 18:52:00 Test Item Value Reference Range Interpretation Comments NA (test code = 140 mmol/L 135-145 3239456879) K (test code = 4.8 mmol/L 3.5-5 9747039474) CL (test code = 102 mmol/L 98-108 0283555635) CO2 TOTAL (test code = 28 mmol/L 23-31 6769656691) AGAP (test code = 2-16 5845233156) BUN (test code = 28 mg/dL 7-23 H 0894090890) GLUCOSE (test code = 99 mg/dL 70-110 2382762518) CREATININE (test code = 1.56 mg/dL 0.5-1.04 H 0352109447) TOTAL BILI (test code = 0.5 mg/dL 0.1-1.4 0184922469) CALCIUM (test code = 10.3 mg/dL 8.6-10.6 5131238285) T PROTEIN (test code = 7.1 g/dL 6.3-8.2 4873011407) ALBUMIN (test code = 4.5 g/dL 3.5-5 7733224773) ALK PHOS (test code = 57 U/L 34-122 3241493510) ALTv (test code = 19 U/L 5-35 1742-6) AST(SGOT) (test code = 23 U/L 13-40 1955707806) eGFR Calculation mL/min/1.73m2 (Non-) (test code = 8203289933) eGFR Calculation mL/min/1.73m2 () (test code = 4324584527) KANU (test code = KANU) Association of [...] tests). Lab Interpretation Abnormal (test code = 52264-0) [facility] 18:34:00 Test Item [...] Indicated Lab Interpretation Abnormal (test code = 56696-7) [facility]2019-10-30 18:34:00 Test Item [...] Indicated Lab Interpretation Abnormal (test code = 72270-6) [facility] [id number] 18:08:00 Test Item Value Reference Range Interpretation Comments WBC (test code = See_Comment [Automated message] 4471-2) The system [employer] generated this result transmitted ref erence range: 4.30 - 1 1.10 10*3/?L. The re ference range was not u sed to interpret this result as normal/abnor mal. RBC (test code = See_Comment [Automated message] 109-8) The system [employer] generated this result transmitted ref erence range: [...] RDW-SD (test code 41.0 fL 39-49.9 = 04824-9) RDW-CV (test code 13.3 % 12-15.5 = 788-0) PLT (test code = See_Comment [Automated message] 087-3) The system whic h generated this result transmitted ref erence range: 166 - 35 8 10*3/?L. The re ference range was not u sed to interpret this result as normal/abnor mal. MPV (test code = 10.5 fL 9.5-12.9 91646-1) NRBC/100 WBC (test See_Comment [Automat ed message] code = 3126512809) The syste m which generated this result transmitted ref erence range: 0.0 - 10 .0 /100 WBCs. The refer ence range was not u sed to interpret this result as normal/abnor mal. NRBC x10^3 (test <0.01 See_Comment [Automated message] code = 4404761287) The syste m which generated this result transmitted ref erence range: 10*3/?L. The reference range was not used to interpr et this result as normal/abnormal . GRAN MAT (NEUT) % 53.9 % (test code = 770-8) IMM GRAN % (test 0.50 % code = 9915630606) LYMPH % (test code 35.7 % = 736-9) MONO % (test code 6.5 % = 5905-5) EOS % (test code = 2.9 % 713-8) BASO % (test code 0.5 % = 706-2) GRAN MAT 3.58 10*3/uL 1.88-7.09 x10^3(ANC) (test code = 5711169866) IMM GRAN x10^3 0.03 10*3/uL 0-0.06 (test code = 6905750728) LYMPH x10^3 (test 2.37 10*3/uL 1.32-3.29 code = 731-0) MONO x10^3 (test 0.43 10*3/uL 0.33-0.92 code = 742-7) EOS x10^3 (test 0.19 10*3/uL 0.03-0.39 code = 711-2) BASO x10^3 (test 0.03 10*3/uL 0.01-0.07 code = 704-7) [facility] WITH [id number] 18:08:00 Test Item Value Reference Range Interpretation Comments WBC (test code = See_Comment [Automated message] 6690-2) The system [employer] generated this result transmitted ref erence range: 4.30 - 1 1.10 10*3/?L. The re ference range was not u sed to interpret this result as normal/abnor mal. RBC (test code = See_Comment [Automated message] 239-8) The system [employer] generated this result transmitted ref erence range: [...] RDW-SD (test code 41.0 fL 39-49.9 = 48111-9) RDW-CV (test code 13.3 % 12-15.5 = 788-0) PLT (test code = See_Comment [Automated message] 777-3) The system [employer] generated this result transmitted ref erence range: 166 - 35 8 10*3/?L. The re ference range was not u sed to interpret this result as normal/abnor mal. MPV (test code = 10.5 fL 9.5-12.9 23388-5) NRBC/100 WBC (test See_Comment [Automat ed message] code = 3627285398) The syste [employer] which generated this result transmitted ref erence range: 0.0 - 10 .0 /100 WBCs. The refer ence range was not u sed to interpret this result as normal/abnor mal. NRBC x10^3 (test <0.01 See_Comment [Automated message] code = 1808293773) The syste m which generated this result transmitted ref erence range: 10*3/?L. The reference range was not used to interpr et this result as normal/abnormal . GRAN MAT (NEUT) % 53.9 % (test code = 770-8) IMM GRAN % (test 0.50 % code = 5734348123) LYMPH % (test code 35.7 % = 736-9) MONO % (test code 6.5 % = 5905-5) EOS % (test code = 2.9 % 713-8) BASO % (test code 0.5 % = 706-2) GRAN MAT 3.58 10*3/uL 1.88-7.09 x10^3(ANC) (test code = 0118026175) IMM GRAN x10^3 0.03 10*3/uL 0-0.06 (test code = 7597314169) LYMPH x10^3 (test 2.37 10*3/uL 1.32-3.29 code = 731-0) MONO x10^3 (test 0.43 10*3/uL 0.33-0.92 code = 742-7) EOS x10^3 (test 0.19 10*3/uL 0.03-0.39 code = 711-2) BASO x10^3 (test 0.03 10*3/uL 0.01-0.07 code = 704-7) [facility] [id number] 01:01:19 No acute osseous abnormality. Multilevel degenerative [...] reviewed this study and agree with the abovereport.[facility] 3 [id number] 01:01:19 No acute osseous abnormality. Multilevel degenerative [...] reviewed this study and agree with the abovereport.[facility]"
--- NOTE | 2023-04-18 15:52 | RAD REPORT ---
EXAM DESCRIPTION: CT - Head C Spine Cap Wo Con - 04/18/2023 3:18 pm CLINICAL HISTORY: Trauma, head and neck injury. Chest, abdomen and pelvis pain. SYNCOPE COMPARISON: No comparisons TECHNIQUE: CT head without contrast. CT cervical spine without contrast with coronal and sagittal reformatted images. CT chest, abdomen and pelvis without contrast with coronal and sagittal reformatted images of the [facility] ne. All CT scans are performed using dose optimization technique as appropriate and may include automated exposure control or mA/KV adjustment according to patient size. FINDINGS: CT HEAD WITHOUT CONTRAST: No intracranial hemorrhage, hydrocephalus or extra-axial fluid collection. Moderate brain atrophy. No areas of brain edema or midline shift. The paranasal sinuses and mastoids are clear. The calvarium is intact. CT CERVICAL SPINE WITHOUT CONTRAST: No fracture or subluxation. The prevertebral soft tissues are normal in thickness. CT CHEST, ABDOMEN, PELVIS WITHOUT CONTRAST: NOTE: Lack of contrast is a significant limitation in the assessment of trauma related findings. Spec ifically, solid organ, vascular and bowel evaluation is significantly limited. The lungs are clear.No pneumothorax or pericardial/pleural fluid. Moderate hiatal hernia. No evidence of intra-abdominal visceral injury, free fluid or free air is seen within the above detai led limitations. Moderate diverticulosis coli involves the sigmoid colon without diverticulitis. Calcified uterine fibroids. No fractures. Postoperative lumbar spine. IMPRESSION: No acute finding is demonstrated.
--- NOTE | 2023-04-18 16:11 | RAD REPORT ---
EXAM DESCRIPTION: RAD - Chest Single View - 04/18/2023 4:02 pm CLINICAL HISTORY: COUGH Chest pain. COMPARISON: Chest Pa And Lat (2 Views) dated 12/04/2022; Chest Single View dated 06/28/2022; Chest Si ngle View dated 12/15/2021; Chest Single View dated 12/05/2021 FINDINGS: Portable technique limits examination quality. The lungs are grossly clear. The heart is normal in size. No displaced fractures. IMPRESSION: No acute intrathoracic process suspected.
[2023-04-18 16:13] LABS: Specific Gravity 1.015 (1.005-1.030); Urine Bacteria <20 /HPF (<20); Urine Bilirubin NEGATIVE (Negative); Urine Blood Negative (Negative); Urine Clarity Extremely Turbid (Clear); Urine Color Yellow (Yellow); Urine Glucose 1+ (Negative); Urine Mucus Slight /HPF (None Seen); Urine Protein 1+ (Negative); Urine RBC <5 /HPF (None Seen); Urine Urobilinogen Normal (Normal); Urine pH 5.5 (5.0-7.0)
[2023-04-18] MEDS ORDERED: NA CHLORIDE 0.9% 1,000 ML ONE (16:28)
[2023-04-18 16:48] LABS: Absolute Lymphocytes (CBC) 1.4 K/uL (0.7-4.9); Lymphocytes % 20.4 % (15.3-44.8); MCV 79.7 fL (80-100); MPV 8.1 fL (7.6-11.3); RBC Red Blood Cell Count 5.15 M/uL (3.86-4.86)
[2023-04-18 16:49] LABS: Protime INR 0.91
--- NOTE | 2023-04-18 17:01 | EDPHYS ---
Physician Documentation [facility] Name: Melanie Lyons Age: 82 yrs Sex: Female : 1940 Arrival Date: 04/18/2023 Time: 14:51 Bed 20 Private MD: ED Physician Mahesh Jesus HPI: 04/18 15:10 This 82 yrs old Female presents to ER via EMS with complaints of Syncope. dania 15:10 The patient has experienced near-syncope, almost passed out, felt dizzy. Onset: The dania symptoms/episode began/occurred just prior to arrival. Duration: This was a single episode, that lasted 30 second(s). Context: the episode(s) was witnessed, by family, daughter. Associated injury: The patient did not suffer any apparent associated injury. Associated signs and symptoms: The patient has no apparent associated signs or symptoms. Current symptoms: Currently, the patient is not experiencing any symptoms. The patient has not experienced similar symptoms in the past. Historical: - Allergies: 14:55 Lisinopril; cough; ld1 14:55 PENICILLINS; ld1 - Home Meds: 15:12 Plavix 75 mg Oral tablet daily [Active]; Metoprolol Tartrate Oral [Active]; Synthroid ld1 Oral [Active]; Metformin Oral [Active]; - PMHx: 14:55 Congestive heart failure; diabetes mellitus; Hypothyroidism; Hypertensive disorder; ld1 pulmonary edema; COPD; vertigo; - PSHx: 14:55 Appendectomy; back; heart cath; Heart Stents; ld1 - Immunization history:: Adult Immunizations up to date, Client reports receiving the 2nd dose of the Covid vaccine. - Social history:: Smoking status: Patient denies any tobacco usage or history of. Patient/guardian denies using alcohol. ROS: 15:13 Constitutional: Negative for fever, chills, and weight loss, Eyes: Negative for injury, dania pain, redness, and discharge, ENT: Negative for injury, pain, and discharge, Neck: Negative for injury, pain, and swelling, Cardiovascular: Negative for chest pain, palpitations, and edema, Respiratory: Negative for shortness of breath, cough, wheezing, and pleuritic chest pain, Abdomen/GI: Negative for abdominal pain, nausea, vomiting, diarrhea, and constipation, Back: Negative for injury and pain, : Negative for injury, bleeding, discharge, and swelling, MS/Extremity: Negative for injury and deformity, Skin: Negative for injury, rash, and discoloration, Psych: Negative for depression, anxiety, suicide ideation, homicidal ideation, and hallucinations, Allergy/Immunology: Negative for hives, rash, and allergies, Endocrine: Negative for neck swelling, polydipsia, polyuria, polyphagia, and marked weight changes. 15:13 Neuro: Positive for near syncope. Exam: 15:13 Constitutional: This is a well developed, well nourished patient who is awake, alert, dania and in no acute distress. Head/Face: Normocephalic, atraumatic. Eyes: Pupils equal round and reactive to light, extra-ocular motions intact. Lids and lashes normal. Conjunctiva and sclera are non-icteric and not injected. Cornea within normal limits. Periorbital areas with no swelling, redness, or edema. ENT: Nares patent. No nasal discharge, no septal abnormalities noted. Tympanic membranes are normal and external auditory canals are clear. Oropharynx with no redness, swelling, or masses, exudates, or evidence of obstruction, uvula midline. Mucous membranes moist. Neck: Trachea midline, no thyromegaly or masses palpated, and no cervical lymphadenopathy. Supple, full range of motion without nuchal rigidity, or vertebral point tenderness. No Meningismus. Chest/axilla: Normal chest wall appearance and motion. Nontender with no deformity. No lesions are appreciated. Cardiovascular: Regular rate and rhythm with a normal S1 and S2. No gallops, murmurs, or rubs. Normal PMI, no JVD. No pulse deficits. Respiratory: Lungs have equal breath sounds bilaterally, clear to auscultation and percussion. No rales, rhonchi or wheezes noted. No increased work of breathing, no retractions or nasal flaring. Abdomen/GI: Soft, non-tender, with normal bowel sounds. No distension or tympany. No guarding or rebound. No evidence of tenderness throughout. Back: No spinal tenderness. No costovertebral tenderness. Full range of motion. Female : Normal external genitalia. Skin: Warm, dry with normal turgor. Normal color with no rashes, no lesions, and no evidence of cellulitis. MS/ Extremity: Pulses equal, no cyanosis. Neurovascular intact. Full, normal range of motion. Neuro: Awake and alert, GCS 15, oriented to person, place, time, and situation. Cranial nerves II-XII grossly intact. Motor strength 5/5 in all extremities. Sensory grossly intact. Cerebellar exam normal. Normal gait. Psych: Awake, alert, with orientation to person, place and time. Behavior, mood, and affect are within normal limits. 15:38 ECG was reviewed by the Attending Physician. [facility] Vital Signs: 15:07 BP 110 / 79; Pulse 88; Resp 18; Temp 98.2(O); Pulse Ox 98% on R/A; Height 4 ft. 11 in. ld1 ; Pain 0/10; 16:30 BP 146 / 65; Pulse 78; Resp 18; Pulse Ox 99% on R/A; ld1 17:44 BP 147 / 60; Pulse 78; Resp 18; Pulse Ox 98% ; ld1 18:54 BP 156 / 78; Pulse 84; Resp 18; Pulse Ox 96% on R/A; ld1 20:10 BP 159 / 67; Pulse 78; Resp 10 S; Pulse Ox 95% on R/A; jw7 20:30 BP 168 / 59; Pulse 78; Resp 15 S; Pulse Ox 94% on R/A; jw7 15:07 Pain Scale: Adult ld1 MDM: 14:[address] [facility] 15:27 Differential Diagnosis: closed head injury, contusion, fracture, laceration, multiple dania trauma, sprain, strain, aortic aneurysm, cardiac arrhythmia, cerebrovascular accident, emotional response, GI bleed, transient ischemic attack, vasovagal episode. Data reviewed: vital signs, nurses notes, EMS record, lab test result(s), EKG, radiologic studies, CT scan, plain films. Consideration of Admission/Observation Patient was admitted/placed on observation. Escalation of care including admission/observation considered. Management of patient was discussed with the following: Hospitalist: TADEO SALEH. I considered the following discharge prescriptions or medication management in the emergency department Medications were administered in the Emergency Department. See MAR. Independent interpretation of the following test(s) in the Emergency Department EKG: See my EKG interpretation above. Test considered but Not performed: Ultrasound NO ABD USG. Care significantly affected by the following chronic conditions: Diabetes, Hypertension, Congestive Heart Failure, Obesity, HYPOTHYROID. Counseling: I had a detailed discussion with the patient and/or guardian regarding: the historical points, exam findings, and any diagnostic results supporting the discharge/admit diagnosis, lab results, radiology results, the need for further work-up and treatment in the hospital. 04/18 14:57 Order name: CBC with Diff; Complete Time: 16:59 [facility] 04/18 14:57 Order name: PT-INR; Complete Time: 16:59 [facility] 04/18 14:57 Order name: Urinalysis w/ reflexes; Complete Time: 16:30 [facility] 04/18 16:19 Order name: Urine Culture [facility] 04/18 16:29 Order name: Basic Metabolic Panel; Complete Time: 17:25 [facility] 04/18 16:29 Order name: Liver (Hepatic) Function; Complete Time: 17:25 [facility] 04/18 16:29 Order name: Troponin High Sensitivity; Complete Time: 17:25 [facility] 04/18 16:29 Order name: NT PRO-BNP; Complete Time: 17:25 [facility] 04/18 16:29 Order name: Magnesium; Complete Time: 17:25 [facility] 04/18 16:29 Order name: Lipase; Complete Time: 17:25 [facility] 04/18 14:57 Order name: XRAY Chest (1 view); Complete Time: 16:30 [facility] 04/18 15:18 Order name: Head C Spine Cap Wo Con; Complete Time: 16:08 [facility] 04/18 17:25 Order name: US Abdomen Limited [facility] 04/18 14:57 Order name: EKG; Complete Time: 15:00 [facility] 04/18 14:57 Order name: Cardiac monitoring; Complete Time: 15:11 [facility] 04/18 14:57 Order name: EKG - Nurse/Tech; Complete Time: 15:58 [facility] 04/18 14:57 Order name: IV Saline Lock; Complete Time: 15:11 [facility] 04/18 14:57 Order name: Labs collected and sent; Complete Time: 16:17 [facility] 04/18 14:57 Order name: O2 Per Protocol; Complete Time: 15:11 [facility] 04/18 14:57 Order name: O2 Sat Monitoring; Complete Time: 15:11 [facility] EC:38 Rate is 86 beats/min. Rhythm is regular. QRS [place] is Normal. NV interval is normal. QRS dania interval is normal. QT interval is normal. No Q waves. T waves are Normal. No ST changes noted. Clinical impression: NSR w/ Non-specific ST/T Changes and No evidence of ischemia. Interpreted by me. Reviewed by me. Administered Medications: 16:23 Drug: NS 0.9% IV 500 ml Route: IV; Rate: bolus; Site: left antecubital; ld1 20:17 Follow up: IV Status: Completed infusion; IV Intake: 500ml jw7 20:17 Follow up: Response: No adverse reaction jw7 16:23 Drug: NS 0.9% IV 1000 ml Route: IV; Rate: 125 ml/hr; Site: left antecubital; ld1 20:17 Follow up: Response: No adverse reaction; IV Status: Infusion continued upon admission; jw7 IV Intake: 400ml 16:37 Drug: Rocephin IV 1 grams Route: IV; Rate: per protocol; Site: left antecubital; ld1 20:16 Follow up: Response: No adverse reaction; IV Status: Completed infusion; IV Intake: [id number] Disposition Summary: 04/18/23 17:00 Hospitalization Ordered Hospitalization Status: Observation dania [facility] dania Condition: Fair dania Problem: new dania Symptoms: have improved dania Bed/Room Type: Standard dania Provider: Jun Jordan(04/18/23 17:13) dania Room Assignment: [id number](04/18/23 19:46) Diagnosis - Syncope Near dania - Fall on same level, unspecified dania - UTI/ Urinary tract infection, site not specified dania - Obesity, unspecified dania - Abnormal levels of other serum enzymes - ELEVATED LIPASE dania - Acute kidney failure, unspecified - ON CHRONIC dania Forms: - Medication Reconciliation Form dania - SBAR form dania Signatures: Dispatcher [employer] EDMS Mahesh Jesus MD MD cha Garcia, Cindy, RN RN cg Lucita Contreras RN RN ld1 Trinidad Juarez RN jw7 Corrections: (The following items were deleted from the chart) 15:18 15:00 Head Brain Wo Cont+CT.RAD.BRZ ordered. EDMS EDMS 15:30 15:18 Head C Spine Cap Wo Con+CT.RAD.BRZ ordered. EDMS EDMS 16:27 14:58 BASIC METABOLIC PANEL+C.LAB.BRZ ordered. EDMS EDMS 16:27 14:58 HEPATIC FUNCTION+C.LAB.BRZ ordered. EDMS EDMS 16:27 14:58 MAGNESIUM+C.LAB.BRZ ordered. EDMS EDMS 16:27 14:58 PROBNP+C.LAB.BRZ ordered. EDMS EDMS 16:27 14:58 Troponin High Sensitivity+C.LAB.BRZ ordered. EDMS EDMS 16:27 14:58 LIPASE+C.LAB.BRZ ordered. EDMS EDMS 17:13 17:00 Enrique Monahan cha, cha 19:46 17:00 dania
--- NOTE | 2023-04-18 17:01 | ER ---
Nurse's Notes [facility] Name: Melanie Lyons Age: 82 yrs Sex: Female : 1940 Arrival Date: 04/18/2023 Time: 14:51 Bed 20 Private MD: Diagnosis: Syncope Near;Fall on same level, unspecified;UTI/ Urinary tract infection, site not specified;Obesity, unspecified;Abnormal levels of other serum enzymes-ELEVATED LIPASE;Acute kidney failure, unspecified-ON CHRONIC Presentation: 04/18 15:07 Chief complaint: EMS states: toned out to patient home for syncopal episode witnessed ld1 by daughter. Pt denies hitting head - Pt takes blood thinners. Coronavirus screen: At this time, the client does not indicate any symptoms associated with coronavirus-19. Ebola Screen: No symptoms or risks identified at this time. Initial Sepsis Screen: Does the patient meet any 2 criteria? No. Patient's initial sepsis screen is negative. Does the patient have a suspected source of infection? No. Patient's initial sepsis screen is negative. Risk Assessment: Do you want to hurt yourself or someone else? Patient reports no desire to harm self or others. Onset of symptoms was April 18, 2023. 15:07 Method Of Arrival: EMS: [facility] ld1 15:07 Acuity: VIRAL 3 ld1 Triage Assessment: 15:07 General: Appears in no apparent distress. comfortable, Behavior is calm, cooperative, ld1 appropriate for age. Pain: Denies pain. EENT: No signs and/or symptoms were reported regarding the EENT system. Neuro: Level of Consciousness is awake, alert, obeys commands, Oriented to person, place, time, situation, Reports dizziness, a syncopal episode. Cardiovascular: Capillary refill < 3 seconds Patient's skin is warm and dry. Rhythm is sinus rhythm. Respiratory: Airway is patent Respiratory effort is even, unlabored. GI: Abdomen is round non-distended. : No signs and/or symptoms were reported regarding the genitourinary system. Derm: No signs and/or symptoms reported regarding the dermatologic system. Musculoskeletal: No signs and/or symptoms reported regarding the musculoskeletal system. Historical: - Allergies: 14:55 Lisinopril; cough; ld1 14:55 PENICILLINS; ld1 - Home Meds: 15:12 Plavix 75 mg Oral tablet daily [Active]; Metoprolol Tartrate Oral [Active]; Synthroid ld1 Oral [Active]; Metformin Oral [Active]; - PMHx: 14:55 Congestive heart failure; diabetes mellitus; Hypothyroidism; Hypertensive disorder; ld1 pulmonary edema; COPD; vertigo; - PSHx: 14:55 Appendectomy; back; heart cath; Heart Stents; ld1 - Immunization history:: Adult Immunizations up to date, Client reports receiving the 2nd dose of the Covid vaccine. - Social history:: Smoking status: Patient denies any tobacco usage or history of. Patient/guardian denies using alcohol. Screenin:10 [facility] ED Fall Risk Assessment (Adult) History of falling in the last 3 months, ld1 including since admission No falls in past 3 months (0 pts). Abuse screen: Denies threats or abuse. Denies injuries from another. Nutritional screening: No deficits noted. Tuberculosis screening: No symptoms or risk factors identified. Assessment: 15:10 Reassessment: See triage assessment. ERP at bedside assessing patient. Neuro: Level of ld1 Consciousness is awake, alert, obeys commands, Oriented to person, place, time, situation. Cardiovascular: Capillary refill < 3 seconds Patient's skin is warm and dry. Rhythm is sinus rhythm. 20:10 Reassessment: Patient appears in no apparent distress at this time. Patient and/or jw7 family updated on plan of care and expected duration. Pain level reassessed. Patient is alert, oriented x 3, equal unlabored respirations, skin warm/dry/pink. 20:15 General: attempted to call report. jw7 20:34 General: Report given . jw7 Vital Signs: 15:07 BP 110 / 79; Pulse 88; Resp 18; Temp 98.2(O); Pulse Ox 98% on R/A; Height 4 ft. 11 in. ld1 ; Pain 0/10; 16:30 BP 146 / 65; Pulse 78; Resp 18; Pulse Ox 99% on R/A; ld1 17:44 BP 147 / 60; Pulse 78; Resp 18; Pulse Ox 98% ; ld1 18:54 BP 156 / 78; Pulse 84; Resp 18; Pulse Ox 96% on R/A; ld1 20:10 BP 159 / 67; Pulse 78; Resp 10 S; Pulse Ox 95% on R/A; jw7 20:30 BP 168 / 59; Pulse 78; Resp 15 S; Pulse Ox 94% on R/A; jw7 15:07 Pain Scale: Adult ld1 ED Course: 14:55 Patient arrived in ED. ld1 14:56 Mahesh Jesus MD is Attending Physician. dania 15:07 Lucita Contreras, RN is Primary Nurse. ld1 15:07 Arm band placed on right wrist. ld1 15:08 Triage completed. ld1 15:10 Patient has correct armband on for positive identification. Placed in gown. Bed in low ld1 position. Call light in reach. Side rails up X2. promotions producer on. Pulse ox on. NIBP on. Door closed. Noise minimized. Warm blanket given. 15:10 No provider procedures requiring assistance completed. Maintain EMS IV. Dressing ld1 intact. Good blood return noted. Site clean \T\ dry. Gauge \T\ site: 20G RFA. 15:18 Head C Spine Cap Wo Con In Process Unspecified. EDMS 15:30 Urinalysis w/ reflexes Sent. ld1 15:58 Urinalysis w/ reflexes Sent. ld1 16:04 XRAY Chest (1 view) In Process Unspecified. EDMS 16:59 Enrique Monahan MD is Hospitalizing Provider. dania 17:13 Jun Jordan MD is Hospitalizing Provider. dania 18:11 US Abdomen Limited In Process Unspecified. EDMS 20:19 Provided Education on: need for admit. jw7 20:19 Patient admitted, IV remains in place. jw7 Administered Medications: 16:23 Drug: NS 0.9% IV 500 ml Route: IV; Rate: bolus; Site: left antecubital; ld1 20:17 Follow up: IV Status: Completed infusion; IV Intake: 500ml jw7 20:17 Follow up: Response: No adverse reaction jw7 16:23 Drug: NS 0.9% IV 1000 ml Route: IV; Rate: 125 ml/hr; Site: left antecubital; ld1 20:17 Follow up: Response: No adverse reaction; IV Status: Infusion continued upon admission; jw7 IV Intake: 400ml 16:37 Drug: Rocephin IV 1 grams Route: IV; Rate: per protocol; Site: left antecubital; ld1 20:16 Follow up: Response: No adverse reaction; IV Status: Completed infusion; IV Intake: [id number] Medication: 15:10 VIS not applicable for this client. ld1 Intake: 20:16 IV: 10ml; Total: 10ml. jw7 20:17 IV: 400ml; Total: 410ml. jw7 20:17 IV: 500ml; Total: 910ml. jw7 Outcome: 17:00 Decision to Hospitalize by Provider. dania 20:18 Admitted to Tele accompanied by tech, family with patient, via wheelchair, room 426, jw7 with chart. 20:18 Condition: stable 20:18 Instructed on the need for admit. 20:46 Patient left the ED. jw7 Signatures: Dispatcher [employer] EDMahesh Luna MD MD cha Sims, Lauren, RN RN ld1 Trinidad Juarez RN RN jw7
[2023-04-18 17:18] LABS: ALT/SGPT 36 U/L (13-56); AST/SGOT 16 U/L (15-37); Albumin 3.4 g/dL (3.4-5.0); Alkaline Phosphatase 71 U/L (45-117); BUN Blood Urea Nitrogen 24 mg/dL (7-18); Bicarbonate 28 mEq/L (21-32); Bilirubin Total 0.2 mg/dL (0.2-1.0); Glomerular Filtration Rate 43 ml/min (=/>90); Glucose Level 288 mg/dL (74-106); Lipase 277 U/L (13-75); Magnesium 1.9 mg/dL (1.6-2.4); NT PRO-BNP 51 pg/mL (<450); Potassium 3.9 mEq/L (3.5-5.1); Protein, Total 7.1 g/dL (6.4-8.2); Sodium Level 135 mEq/L (136-145); Troponin High Sensitivity 9.4 pg/mL (<58.9)
[2023-04-18 17:19] LABS: Bilirubin Direct < 0.1 mg/dL (0-0.2); Bilirubin Indirect, Calculated ND mg/dL (0.2-0.8)
--- NOTE | 2023-04-18 18:20 | RAD REPORT ---
EXAM DESCRIPTION: US - Abdomen Exam Limited - 04/18/2023 6:09 pm CLINICAL HISTORY: ABD PAIN COMPARISON: Renal Ultrasound-Complete dated 12/15/2021 FINDINGS: The gallbladder demonstrates no gallstones. No pericholecystic fluid or gallbladder wall t hickening. The common bile duct is normal measuring 4 mm. The liver demonstrates no findings of intrahepatic biliary dilatation. IMPRESSION: Unremarkable examination.
[2023-04-18] MEDS ORDERED: TRAMADOL HCL 50 MG TAB PO PRN (18:27)
[2023-04-18] MEDS ORDERED: ONDANSETRON 4 MG/2 ML VIAL IV PRN (18:32)
[2023-04-18] MEDS ORDERED: D50W 25 GM/50 ML SYRINGE IV PRN ×2 (19:01)
[2023-04-18] MEDS ORDERED: GLUCAGON 1 MG/VIAL IM PRN ×2 (19:01)
--- NOTE | 2023-04-18 19:02 | P.HP ---
Certification for Inpatient Patient admitted to: Observation With expected LOS: <2 Midnights Patient will require the following post-hospital care: None Practitioner: I am a practitioner with admitting privileges, knowledge of patient current condition, hospital course, and medical plan of care. Services: Services provided to patient in accordance with Admission requirements found in Title 42 Section 412.3 of the Code of Federal Regulations Patient History Date of Service: 04/18/23 Reason for admission: Syncope History of Present Illness: Patient is an 82-year-old female with a past medical history significant for DM 2, hypothyroidism hypertension, COPD, GERD, vertigo who presents with complaint of complaint of syncope onset today while patient was at home. Patient reported that she finished eating her breakfast then got up and as she was walking, patient suddenly had a syncopal episode. Patient denies any episode of dizziness, weakness or any other signs and symptoms before experiencing the syncopal episode. Family reported that patient was found on the floor. Patient denies hitting her head. Family reported that patient was unresponsive to verbal commands for a couple of minutes. While in ER patient started experiencing chest pain located in the left chest wall, rated as 7/10 in severity and described as burning in quality. Patient denies any other signs and symptoms. Symptoms are aggravated or relieved by nothing. Patient was brought to the hospital for medical evaluation. Allergies lisinopril Allergy (Verified 07/21/22 02:35) Rash Penicillins Allergy (Verified 12/15/21 21:45) Itching Home Medications: Aspirin [Aspirin EC 81 MG] 81 mg PO DAILY #30 tablet. 07/15/21 Clopidogrel Bisulfate [Plavix*] 75 mg PO DAILY #30 tablet 07/15/21 Levothyroxine [Synthroid*] 75 mcg PO [id number] 07/20/21 Trazodone HCl [Desyrel] 100 mg PO BEDTIME 07/20/21 Losartan Potassium [Cozaar*] 50 mg PO BEDTIME 12/15/21 Citalopram Hydrobromide [Citalopram HBr] 40 mg PO DAILY 06/29/22 Dexlansoprazole [Dexilant] 60 mg PO DAILY 06/29/22 Esomeprazole Mag Trihydrate [Nexium] 40 mg PO DAILY 06/29/22 Furosemide [Lasix] 40 mg PO DAILY 06/29/22 Ibandronate Sodium 150 mg PO DAILY 06/29/22 Albuterol [Proventil] 2 puff IH PRN PRN 07/20/22 Ascorbate Calcium [Vitamin C] 500 mg PO DAILY 07/20/22 Lifitegrast [Xiidra] 1 drop EACH EYE BID 07/20/22 Metformin HCl 500 mg PO BIDWM 07/20/22 Metoprolol Succinate [Toprol Xl*] 50 mg PO DAILY 07/20/22 Rosuvastatin Calcium [Crestor] 10 mg PO BEDTIME 07/20/22 metroNIDAZOLE [Flagyl] 500 mg PO Q8H #20 tab 07/21/22 predniSONE [Deltasone] 20 mg PO DAILY #5 tab 07/21/22 - Past Medical/Surgical History Diabetic: Yes -: Coronary artery disease -: CHF -: Hypertension -: Hypothyroidism -: CKD -: DM2 -: Cardiac catheterization with PCI -: Appendectomy -: Back Surgery Psychosocial/ Personal History: patient lives at home with her daughter. - Family History Father -: Diabetes Mother -: Diabetes Notes: copd - Social History Smoking Status: Never smoker Alcohol use: No CD- Drugs: No Caffeine use: No Place of Residence: Home Review of Systems General: Unremarkable Eyes: Unremarkable Respiratory: Unremarkable Cardiovascular: Chest Pain Gastrointestinal: Unremarkable Genitourinary: Unremarkable Musculoskeletal: Unremarkable Neurological: Other (Syncope) Lymphatics: Unremarkable Physical Examination - Physical Exam General: Alert, In no apparent distress, Oriented x3, Cooperative HEENT: Atraumatic, PERRLA, Mucous membr. moist/pink, EOMI, Sclerae nonicteric Neck: Supple, 2+ carotid pulse no bruit, No LAD, Without JVD or thyroid abnormality Respiratory: Diminished Cardiovascular: No edema, Regular rate/rhythm, Normal S1 S2 Capillary refill: <2 Seconds Gastrointestinal: Normal bowel sounds, Tenderness (Right upper quadrant) Musculoskeletal: No clubbing, No tenderness Integumentary: No rashes, No significant lesion Neurological: Normal speech, Normal tone, Normal affect Lymphatics: No axilla or inguinal lymphadenopathy - Studies Laboratory Data (last 24 hrs) 04/18/23 04/18/23 04/18/23 16:15 16:15 16:15 WBC 7.10 Hgb 13.4 Hct 41.0 Plt Count 254 PT 10.0 INR 0.91 Sodium 135 L Potassium 3.9 BUN 24 H Creatinine 1.24 H Glucose 288 H Magnesium 1.9 Total Bilirubin 0.2 AST 16 ALT 36 Alkaline Phosphatase 71 Lipase 277 H 04/18/23 15:37 WBC Hgb Hct Plt Count PT INR Sodium Cancelled Potassium Cancelled BUN Cancelled Creatinine Cancelled Glucose Cancelled Magnesium Cancelled Total Bilirubin Cancelled AST Cancelled ALT Cancelled Alkaline Phosphatase Cancelled Lipase Cancelled Assessment and Plan - Plan -- Syncope. Unclear etiology. Cardiology consulted. Echocardiogram pending to assess cardiac structures and function. Carotid Doppler pending to rule out any carotid artery stenosis. We will get some orthostatic vital signs. Further management per ripsaw operator. --DM2 with hyperglycemia. BS monitoring with sliding scale insulin, pre-meal insulin and Lantus. --Chest pain. Likely atypical. Serial troponins negative so far. Telemetry to monitor for any significant arrhythmia. Route Agent on board. We will await further recommendations. --UTI POA. Patient placed on antibiotics. Urine cultures pending. --COPD. Stable. Continue home medication. --GERD. Continue Protonix. --Hypothyroidism. Continue Synthroid. --Hyperlipidemia. Continue statin. --Hypertension. Poorly controlled. Continue home medications and hydralazine as needed. --History of CAD with stents. Continue aspirin, Plavix and statin. -- History of vertigo. Meclizine as needed. --Right upper quadrant pain. Patient felt pain on palpation of right upper quadrant. Gallbladder ultrasound was unremarkable. We will manage pain with current pain medication regimen. -- Obesity. Likely secondary to excess calories intake. Patient counseled on weight reduction, diet and excise therapy. --DVT prophylaxis with Lovenox subQ. Discharge Plan: Home Plan to discharge in: 48 Hours - Advance Directives Does patient have a Living Will: No Does patient have a Durable POA for Healthcare: Yes - Code Status/Comfort Care Code Status Assessed: Yes Physician Review: Patient Assessed, Agree with Above Assessment and Plan Critical Care: No
[2023-04-18] MEDS ORDERED: D10W 125 ML IV PRN (19:10)
[2023-04-18] MEDS ORDERED: INSULIN LISPRO 100 UNIT/1 ML SQ SCH (19:30)
[2023-04-18] MEDS ORDERED: MECLIZINE HCL 12.5 MG TAB PO PRN (20:16)
[2023-04-18] MEDS ORDERED: HYDRALAZINE HCL 20 MG/ML VIAL IV PRN (20:19)
[2023-04-18] MEDS: INSULIN -REGULAR HUMAN 50 UNIT/0.5 ML ML SQ SCH (21:00)
[2023-04-18 21:17] VITALS: BMI 35.9
[2023-04-18 21:32] LABS: Magnesium 1.8 mg/dL (1.6-2.4); Phosphorus 2.4 mg/dL (2.5-4.9)
[2023-04-18 21:33] LABS: Thyroid Stimulating Hormone 4.22 uIU/mL (0.358-3.740)
[2023-04-18] MEDS: CEFTRIAXONE 1,000 MG in NA CHLORIDE 0.9% 50 ML IVPB SCH (22:57)
[2023-04-18] MEDS: INSULIN GLARGINE 100 UNIT/ML SQ SCH (22:57)
[2023-04-18] MEDS: ENOXAPARIN 40 MG/0.4 ML SQ SCH (22:57)
[2023-04-19 03:38] LABS: Potassium 3.8 mEq/L (3.5-5.1)
[2023-04-19 03:46] LABS: Absolute Lymphocytes (CBC) 2.4 K/uL (0.7-4.9); Lymphocytes % 31.8 % (15.3-44.8); MCV 79.6 fL (80-100); MPV 8.3 fL (7.6-11.3); RBC Red Blood Cell Count 4.65 M/uL (3.86-4.86)
[2023-04-19] MEDS ORDERED: MAGNESIUM SULFATE 1 gm IVPB 1 GM/100 ML BAG IV ONE (05:59)
[2023-04-19] MEDS ORDERED: POTASSIUM CL SA 10 MEQ TAB PO ONE (06:01)
[2023-04-19] MEDS: POTASS/SODIUM PHOSPHATE 1 PKT POWD.PACK PO SCH ×3 (06:26→09:03)
[2023-04-19] MEDS: ACETAMINOPHEN 325 MG TABLET PO PRN ×2 (06:28→22:45)
--- NOTE | 2023-04-19 07:41 | RAD REPORT ---
EXAM DESCRIPTION: USCarotid Artery Bilateral04/19/2023 1:48 am CLINICAL HISTORY: syncope COMPARISON: None FINDINGS: The velocity of the right internal carotid artery equals 89 cm/sec. The right ICA/CCA rati o 1 The velocity of the left internal carotid artery equals 80 cm/sec. The left ICA/CCA ratio 1 Mild plaque is present within the carotid arteries. Limited evaluation of the right vertebral artery. Left vertebral artery demonstrates antegrade flow IMPRESSION: Mild plaque within the carotid arteries without evidence of a hemodynamically significan t stenosis NASCET criteria used. Mild 0-49% stenosis Moderate 50-69% stenosis Severe 70-99% stenosis
--- NOTE | 2023-04-19 07:47 | P.PN ---
Date of Service: 04/19/23 Subjective: reports being compliant with all home medications, no new/change in medications recently no nausea / vomiting / diarrhea; denies UTI symptoms orthostatic vitals were positive; +Head feels "foggy" ROS: 10 point ROS as noted above, otherwise negative Physical Exam: GEN: Alert, oriented, NAD HEENT: Normal conjunctiva, sclera anicteric CV: Regular rate and rhythm, no edema Pulm: Nonlabored respirations on room air, diminished at bases b/l ABD: Soft, RUQ tenderness, nondistended Integumentary: No rashes Neuro: Normal speech, normal affect vitals reviewed Problem List: Syncope +Orthostatic Hypotension UTI, suspected RUQ pain COPD, stable GERD Hypothyroidism Hyperlipidemia Hypertension NIDDM2 with hyperglycemia History of CAD with stents History of vertigo Syncope Orthostatic Hypotension Carotid Doppler (04/18): Mild plaque within the carotid arteries without evidence of a hemodynamically significant stenosis CT head/chest/abd (04/18): No acute finding is demonstrated. Troponins negative x3. Monitor on telemetry Cardiology consulted. positive orthostatic vital signs suspect syncope secondary to orthostasis / medications; less likely cardiogenic UTI, suspected denies symptoms, h/o UTI Urine cultures pending empiric Rocephin (04/18-) Afebrile without leukocytosis RUQ discomfort Patient felt pain on palpation of right upper quadrant. abdominal u/s (04/18): unremarkable. PRN pain medication NIDDM2 with hyperglycemia. SSI, pre-meal insulin and Lantus. COPD, stable. Continue home medication. GERD. Continue Protonix. Hypothyroidism. Continue Synthroid. Hyperlipidemia. Continue statin. Hypertension. Poorly controlled. Confirm home medications, restart as appropriate History of CAD with stents. Continue aspirin, Plavix and statin. History of vertigo. Meclizine as needed. Obesity. Likely secondary to excess calories intake. Patient counseled on weight reduction, diet and excise therapy. VTE: Lovenox Code: Full Dispo: Home ~1 day
[2023-04-19] MEDS: ENOXAPARIN 40 MG/0.4 ML SQ SCH (08:56)
[2023-04-19] MEDS: CEFTRIAXONE 1,000 MG in NA CHLORIDE 0.9% 50 ML IVPB SCH (08:57)
[2023-04-19] MEDS ORDERED: ASPIRIN 81 MG CHEWABLE TABLET PO SCH (09:00)
[2023-04-19] MEDS ORDERED: ENOXAPARIN 40 MG/0.4 ML SQ SCH (09:00)
[2023-04-19] MEDS: INSULIN -REGULAR HUMAN 50 UNIT/0.5 ML ML SQ SCH ×4 (09:07→21:00)
[2023-04-19] MEDS ORDERED: METOPROLOL XL 50 MG TAB PO SCH (14:00)
[2023-04-19] MEDS: LOSARTAN POTASSIUM 50 MG TABLET PO SCH (15:02)
[2023-04-19] MEDS: CITALOPRAM 10 MG TABLET PO SCH (15:02)
[2023-04-19] MEDS: METOPROLOL XL 50 MG TAB PO SCH (15:02)
[2023-04-19] MEDS: INSULIN GLARGINE 100 UNIT/ML SQ SCH (21:39)
[2023-04-20] MEDS ORDERED: MELATONIN 5 MG TABLET PO PRN (00:57)
[2023-04-20 05:30] LABS: Phosphorus 2.8 mg/dL (2.5-4.9)
[2023-04-20 05:31] LABS: Magnesium 1.9 mg/dL (1.6-2.4)
--- NOTE | 2023-04-20 07:00 | P.PN ---
Date of Service: 04/20/23 Subjective: Diarrhea yesterday / today; improving ambulates with stand by assist, no dizziness/lightheadedness after otherwise no new / worsening problems +headache ROS: 10 point ROS as noted above, otherwise negative Physical Exam: GEN: Alert, oriented, NAD HEENT: Normal conjunctiva, sclera anicteric CV: Regular rate and rhythm, no edema Pulm: Nonlabored respirations on room air, diminished at bases b/l ABD: Soft, RUQ tenderness, nondistended Integumentary: No rashes Neuro: Normal speech, normal affect vitals reviewed Problem List: Syncope +Orthostatic Hypotension UTI, suspected RUQ discomfort COPD, stable GERD Hypothyroidism Hyperlipidemia Hypertension NIDDM2 with hyperglycemia History of CAD with stents History of vertigo Syncope +Orthostatic Hypotension Carotid Doppler (04/18): Mild plaque within the carotid arteries without evidence of a hemodynamically significant stenosis CT head/chest/abd (04/18): No acute finding is demonstrated. Troponins negative x3. Monitor on telemetry Cardiology consulted. positive orthostatic vital signs suspect syncope secondary to orthostasis / medications; less likely cardiogenic UTI, suspected denies symptoms, h/o UTI Urine cultures pending empiric Rocephin (04/18-) Afebrile without leukocytosis RUQ discomfort Patient felt pain on palpation of right upper quadrant. abdominal u/s (04/18): unremarkable. PRN pain medication COPD, stable. Continue home medication. GERD. Continue Protonix. Hypothyroidism. Continue Synthroid. Hyperlipidemia. Continue statin. Hypertension. Poorly controlled. Confirm home medications, restart as appropriate NIDDM2 with hyperglycemia. SSI, pre-meal insulin and Lantus. History of CAD with stents. Continue aspirin, Plavix and statin. History of vertigo. Meclizine as needed. Obesity. Likely secondary to excess calories intake. Patient counseled on weight reduction, diet and excise therapy. VTE: Lovenox Code: Full Dispo: Home ~1 day
[2023-04-20 08:23] VITALS: O2SAT 98
[2023-04-20] MEDS: METOPROLOL XL 50 MG TAB PO SCH (08:57)
[2023-04-20] MEDS: LOSARTAN POTASSIUM 50 MG TABLET PO SCH (08:57)
[2023-04-20] MEDS: CITALOPRAM 10 MG TABLET PO SCH (08:58)
[2023-04-20] MEDS: INSULIN -REGULAR HUMAN 50 UNIT/0.5 ML ML SQ SCH ×3 (08:58→16:30)
[2023-04-20] MEDS ORDERED: HOME MED 1 EA UNK (Citalopram Hydrobromide [Citalopram Hbr] 40 MG Tablet) PO SCH (09:00)
[2023-04-20] MEDS ORDERED: ASPIRIN EC 81 MG TAB PO SCH (09:00)
[2023-04-20] MEDS ORDERED: levoFLOXacin 750 MG TAB PO SCH (09:00)
[2023-04-20] MEDS: ENOXAPARIN 40 MG/0.4 ML SQ SCH (09:02)
[2023-04-20] MEDS: ACETAMINOPHEN 325 MG TABLET PO PRN (10:19)
--- NOTE | 2023-04-20 12:04 | P.DS ---
Admission Date: 04/18/23 Discharge Date: 04/20/23 Disposition: ROUTINE DISCHARGE Discharge Condition: GOOD Reason for Admission: Syncope Consultations: Cardiology - Dr. Rico Brief History of Present Illness: 82yo F, PMH: DM 2, hypothyroidism hypertension, COPD, GERD, vertigo Patient presents with complaint of complaint of syncope onset today while patient was at home. Patient reported that she finished eating her breakfast then got up and as she was walking, patient suddenly had a syncopal episode. Patient denies any episode of dizziness, weakness or any other signs and symptoms before experiencing the syncopal episode. Family reported that patient was found on the floor. Patient denies hitting her head. Family reported that patient was unresponsive to verbal commands for a couple of minutes. While in ER patient started experiencing chest pain located in the left chest wall, rated as 7/10 in severity and described as burning in quality. Patient denies any other signs and symptoms. Symptoms are aggravated or relieved by nothing. Hospital Course: Problem List: Syncope +Orthostatic Hypotension UTI, suspected RUQ pain COPD, stable GERD Hypothyroidism Hyperlipidemia Hypertension NIDDM2 with hyperglycemia History of CAD with stents History of vertigo Patient presented with a syncopal episode. In the ED, Chest xray, CT head/chest/abd were both negative for any acute findings. She was noted to have low /borderline blood pressure on arrival to ED and received IV fluids with improvement. She reported had burning left sided chest pain in the ED. Patient was admitted for further evaluation of her syncope and chest pain. Regarding chest pain, patient reported resoultion of pain, Troponins were negative x3. Cardiology was consulted and advised to further ischemic workup warranted as inpatient at this time. She can follow up in the office. Her syncopal episode occurred after getting up /ambulating. This along with her blood pressure on presentation, multiple medications,was most consistent with orthostatic syncope. The day after admission, her orthostatic vital signs were positive and she was mildly symptomatic. Her lasix and spironolactone were held on admission, and her other anti- hypertensive medications were restarted. Her blood pressure remained ~130-150s systolic and repeat orthostatic vitals were negative on day of discharge. Dr. Rico, Cardiology, in agreement that syncope was likely combination of the above that lead to the orthostasis. Patient reported only taking her lasix as needed / not consistent. Recommend to continue to take as needed, check blood pressure prior to taking, and given precautions for orthostasis. She did also report several days of diarrhea at home, had 2-3 episodes of small amount of loose stool in the hospital, and reported improvement. Likely played a role in dehydration / orthostasis as well. On day of discharge, patient was feeling better, strength improved, able to ambulate, and Orthostatic vitals were negative. Although patient denied changes in urinary habits /dysuria, etc, due to her low blood pressure on presentation, syncopal episode, and urinalysis results (+WBCs, +leuk est), patient was treated for possible UTI with empiric Rocephin, and subsequently switched to PO levaquin. She completed a short 3 day course. Urine culture grew <10,000 CFU mixed renee. No obvious UTI findings. She remained afebrile, without leukocytosis, and denied urinary symptoms, so no antibiotics were prescribed beyond the 3 day course she reeived. Continue home meds as previously prescribed with continuing to take lasix as needed, with caution; check blood pressure prior to taking medication hold off on spironolactone for 2 days, can resume if blood pressure remains consistently > 150 systolic check BP daily and follow up with PCP Follow up: PCP 3-5 days Cardiology within 1-2 weeks Physical Exam: GEN: Alert, oriented, NAD HEENT: Normal conjunctiva, sclera anicteric CV: Regular rate and rhythm, no edema Pulm: Nonlabored respirations on room air, diminished at bases b/l ABD: Soft, RUQ tenderness, nondistended MSK: No joint tenderness Integumentary: No rashes Neuro: Normal speech, normal affect Vital Signs/Physical Exam: Temp Pulse Resp BP Pulse Ox 96.9 F 67 18 146/70 H 96 04/20/23 08:00 04/20/23 08:00 04/20/23 08:00 04/20/23 08:00 04/20/23 08:00 Laboratory Data at Discharge: WBC 7.60 thou/uL (4.3-10.9) 04/19/23 02:30 Hgb 12.1 g/dL (12.0-15.0) D 04/19/23 02:30 Hct 37.0 % (36.0-45.0) 04/19/23 02:30 Plt Count 224 thou/uL (152-406) 04/19/23 02:30 PT 10.0 SECONDS (9.5-12.5) 04/18/23 16:15 INR 0.91 04/18/23 16:15 Sodium 134 mEq/L (136-145) L 04/20/23 04:36 Potassium 4.0 mEq/L (3.5-5.1) 04/20/23 04:36 BUN 19 mg/dL (7-18) H 04/20/23 04:36 Creatinine 1.04 mg/dL (0.55-1.02) H 04/20/23 04:36 Glucose 190 mg/dL (74-106) H 04/20/23 04:36 Phosphorus 2.8 mg/dL (2.5-4.9) 04/20/23 04:36 Magnesium 1.9 mg/dL (1.6-2.4) 04/20/23 04:36 Total Bilirubin 0.2 mg/dL (0.2-1.0) 04/18/23 16:15 AST 16 U/L (15-37) 04/18/23 16:15 ALT 36 U/L (13-56) 04/18/23 16:15 Alkaline Phosphatase 71 U/L (45-117) 04/18/23 16:15 Triglycerides 241 mg/dL (<150) H 04/19/23 02:30 Cholesterol 215 mg/dL (<200) H 04/19/23 02:30 HDL Cholesterol 38 mg/dL (40-60) L 04/19/23 02:30 Cholesterol/HDL Ratio 5.66 04/19/23 02:30 Lipase 54 U/L (13-75) 04/19/23 08:28 Home Medications: Aspirin [Aspirin EC 81 MG] 81 mg PO DAILY #30 tablet. 07/15/21 Trazodone HCl [Desyrel] 100 mg PO BEDTIME 07/20/21 Losartan Potassium [Cozaar*] 50 mg PO DAILY 12/15/21 Citalopram Hydrobromide [Citalopram HBr] 40 mg PO DAILY 06/29/22 Furosemide [Lasix] 40 mg PO DAILY 06/29/22 Metoprolol Succinate [Toprol Xl*] 50 mg PO DAILY 07/20/22 Dapagliflozin Propanediol [Farxiga] 5 mg PO DAILY 04/19/23 Fluticasone/Vilanterol [Breo Ellipta 200-25 Mcg INH] 1 each IH DAILY PRN 04/19/23 Pravastatin Sodium 20 mg PO SEECOM 04/19/23 Semaglutide [Ozempic] 0.25 mg SQ SEECOM 04/19/23 Spironolactone [Aldactone*] 25 mg PO DAILY 04/19/23 Physician Discharge Instructions: Patient presented with a syncopal episode. In the ED, Chest xray, CT head/chest/abd were both negative for any acute findings. She was noted to have low /borderline blood pressure on arrival to ED and received IV fluids with improvement. She reported had burning left sided chest pain in the ED. Patient was admitted for further evaluation of her syncope and chest pain. Regarding chest pain, patient reported resoultion of pain, Troponins were negative x3. Cardiology was consulted and advised to further ischemic workup warranted as inpatient at this time. She can follow up in the office. Her syncopal episode occurred after getting up /ambulating. This along with her blood pressure on presentation, multiple medications,was most consistent with orthostatic syncope. The day after admission, her orthostatic vital signs were positive and she was mildly symptomatic. Her lasix and spironolactone were held on admission, and her other anti- hypertensive medications were restarted. Her blood pressure remained ~130-150s systolic and repeat orthostatic vitals were negative on day of discharge. Dr. Rico, Cardiology, in agreement that syncope was likely combination of the above that lead to the orthostasis. Patient reported only taking her lasix as needed / not consistent. Recommend to continue to take as needed, check blood pressure prior to taking, and given precautions for orthostasis. She did also report several days of diarrhea at home, had 2-3 episodes of small amount of loose stool in the hospital, and reported improvement. Likely played a role in dehydration / orthostasis as well. On day of discharge, patient was feeling better, strength improved, able to ambulate, and Orthostatic vitals were negative. Although patient denied changes in urinary habits /dysuria, etc, due to her low blood pressure on presentation, syncopal episode, and urinalysis results (+WBCs, +leuk est), patient was treated for possible UTI with empiric Rocephin, and subsequently switched to PO levaquin. She completed a short 3 day course. Urine culture grew <10,000 CFU mixed renee. No obvious UTI findings. She remained afebrile, without leukocytosis, and denied urinary symptoms, so no antibiotics were prescribed beyond the 3 day course she reeived. Continue home meds as previously prescribed with continuing to take lasix as needed, with caution; check blood pressure prior to taking medication hold off on spironolactone for 2 days, can resume if blood pressure remains consistently > 150 systolic check BP daily and follow up with PCP Follow up: PCP 3-5 days Cardiology within 1-2 weeks Followup: Alber Gomez, [Primary Care Provider] - Time spent managing pt's care (in minutes): 45
[2023-04-20 17:41] VITALS: BP 157/73; TEMP 97.3
--- NOTE | 2023-04-22 18:09 | CON ---
Date of Consultation: 04/19/2023 Reason For Consultation: Syncope. History Of Present Illness: An 82-year-old female, history of diabetes, hypertension, COPD, hypothyr oidism, presented after a syncopal episode. After finishing eating breakfast, she got up and felt ve ry lightheaded and then passed out. No convulsions. The patient was found on the floor by family. No head injury or headache. No other complaints. Past Medical History: As outlined above in HPI plus she has history of hypertension, diabetes, coron familia artery disease, CHF, chronic kidney disease, status post PCI in the past. Medications: Refer to reconciliation sheet for detailed list. Allergies: LISINOPRIL AND PENICILLIN. Family History: No premature coronary artery disease or cancer. Social History: She does not smoke or drink. Does not use any drugs. Review of Systems: All systems reviewed and they were negative except what mentioned in HPI. Physical Examination: Vital Signs: On arrival; blood pressure was 110/79, breathing at 18, heart rate is 88, temperature i s 98.2. Head and Neck: Pupils are equal, reactive to light. Intact eye movements. No JVD. No cervical lym phadenopathy. Neck is supple. Thyroid is not enlarged. Lungs: Clear to auscultation bilaterally. No rhonchi, wheezing, or crackles. No accessory muscle u se. Heart: Regular rate and rhythm. No extra sounds. Abdomen: Soft, nontender. Bowel sounds positive. No organomegaly. No masses or hernia. No rigidi ty or rebound. Extremities: No edema, clubbing, or cyanosis. Intact pulses. Skin: No rash. Neurologic: Alert, awake, oriented x3. No acute focal deficits appreciated. Investigations: BUN 24, creatinine 1.24. Cardiac enzymes x3 are negative. Assessment And Recommendations: 1.Syncope, likely due to orthostatic hypotension. On telemetry, there is no abnormalities so far. Monitor for the next 24 hours and if no arrhythmia, the patient can be released and we will plan for outpatient evaluation with a stress test and an echo. 2.History of coronary artery disease. No active chest pain. Plan for outpatient stress test and an echo. 3.Hypertension. Blood pressure was on the low side. Likely, her symptoms were orthostatic hypotens ion. Monitor clinically and hydrate gently and re-evaluate in the morning with orthostatics. SR/MODL Voice ID: [id number] Report ID: [id number]
--- NOTE | 2023-04-22 18:53 | PN ---
Date of Progress Note: 04/20/2023 Subjective: Seen by bedside. No further dizzy episodes. Review of Systems: No chest pain, shortness of breath, orthopnea, cough. No nausea, vomiting, diarrhea. All other syst ems reviewed and they negative. Physical Examination: Vital Signs: Reviewed. Head and Neck: Pupils are equal, reactive to light. Intact eye movements. No JVD. No cervical lym phadenopathy. Neck is supple. Thyroid is not enlarged. Lungs: Clear to auscultation bilaterally. No rhonchi, wheezing, or crackles. No accessory muscle u se. Heart: Regular rate and rhythm. No extra sounds. Abdomen: Soft, nontender. Bowel sounds positive. No organomegaly. No masses or hernia. No rigidi ty or rebound. Extremities: No edema, clubbing, or cyanosis. Intact pulses. Skin: No rash. Neurologic: Alert, awake, oriented x3. No acute focal deficits appreciated. Investigations: Labs reviewed. Assessment And Recommendations: Syncopal episode due to orthostatic hypotension. After gentle hydra tion, the patient did better and of note had significant urinary tract infection also on admission, w hich probably contributed to her dehydration status. Recommend treatment with antibiotics and the pa tient can be released from Cardiology standpoint and followup is an outpatient in 2 to 4 weeks post discharge. I will plan for 1 week Holter monitor, echo, and a stress test as an outpatient. /ASHLEY Voice ID: [id number] Report ID: [id number]
--- NOTE | 2023-04-23 13:21 | EKG ---
Test Date: 2023-04-18 Test Time: 15:35:23 Lithographic General Worker: Namrata COY MEASUREMENT RESULTS: Intervals: Rate: 86 OK: 166 QRSD: 84 QT: 394 QTc: 471 [place]: P: 41 OK: 166 QRS: -2 T: 47 INTERPRETIVE STATEMENTS: Normal sinus rhythm Cannot rule out Inferior infarct, age undetermined Possible Anterolateral infarct, age undetermined Abnormal ECG Compared to ECG 06/28/2022 16:38:39 Myocardial infarct finding now present Sinus bradycardia no longer present Electronically Signed On 04-23-23 13:13:13 CDT by Etienne Rico
== END 2023-04-20 17:42 | disposition home or self-care (01) ==
LOC: ER 14:51 → ERHOLD 18:26 → 4TH 19:51
PROVIDERS: ADMIT Hospitalist; ATTEND Hospitalist
DX: I95.1 Orthostatic hypotension (principal); R55 Syncope and collapse; E03.9 Hypothyroidism, unspecified; K21.9 Gastro-esophageal reflux disease without esophagitis; N39.0 Urinary tract infection, site not specified; E11.65 Type 2 diabetes mellitus with hyperglycemia; J44.9 Chronic obstructive pulmonary disease, unspecified; E78.5 Hyperlipidemia, unspecified; R19.7 Diarrhea, unspecified; I25.10 Atherosclerotic heart disease of native coronary artery without angina pectoris; I10 Essential (primary) hypertension; Z95.5 Presence of coronary angioplasty implant and graft; R10.11 Right upper quadrant pain; Z68.35 Body mass index [BMI] 35.0-35.9, adult; Z71.3 Dietary counseling and surveillance; Z88.0 Allergy status to penicillin; Z88.8 Allergy status to other drugs, medicaments and biological substances
CPT/HCPCS: 96365; 93005; 87088; 85025 ×2; 81001; 87086; 80048 ×3; 36415 ×2; 83735 ×3; 84100 ×2; 85610; 80061; 82947 ×8; 85379; 80076; 84443; 84484 ×3; 84439; 83690 ×2; 83880; 70450; 71250; 72125; 71045; 93880; 76705; 99285; 96366; J1815 ×4; J3475; J0360; J1650 ×3; J7030; J0696 ×3

== ENCOUNTER 2023-08-20 22:36 | Emergency (ER) | payer OTHER ==
--- OUTSIDE RECORDS SUMMARY | 2023-08-20 23:39 | XMS REPORT | Continuity of Care Document ---
:1940 Author Organization [facility] t Address [address] [place] [address] [place] [id number] Care Team Providers Name Role Phone Alber Gomez DO Tim Primary Care Physician [phone] Alber Gomez Attending Clinician Unavailable ROBERTO WHITAKER Attending Clinician Unavailable CRYSTAL MAURER Attending Clinician Unavailable Amina Grove MD Attending Clinician BRUNO KAPADIA Attending Clinician Unavailable Doctor Unassigned, [place] Attending Clinician Unavailable Christina Lucio MD Attending Clinician Viola Steele Attending Clinician Unavailable Jose Fraser MD Attending Clinician Unavailable Roberto Whitaker Chinohermilo Attending Clinician LUIS DRAKE Attending Clinician Unavailable Lab, [facility] Fam Pob I Attending Clinician Unavailable Edward Brasher Attending Clinician EDWARD RODRÍGUEZ Attending Clinician Unavailable Jenny Giraldo Attending Clinician EKIZABELA OBONORUMA IMARIA Attending Clinician Unavailable Ekcandidose Obonohussain Hardyariabe Attending Clinician [phone] Omid Dorsey MD Attending Clinician OMID DORSEY Attending Clinician Unavailable Provider, [facility] Care Attending Clinician Unavailable Martha [...] Unavailable FRANCISCA MARTINS Attending Clinician Unavailable Warren FRANCO, K Shahla Attending Clinician Luis Drake MD Attending Clinician , [facility] Sleep Lab Bed Attending Clinician Unavailable Only, [facility] Test Attending Clinician Unavailable Kevin Greene MD Attending Clinician [facility], [facility] Sleep Lab Attending Clinician Unavailable Ko Dukes Attending Clinician 2, [facility] Lab Attending Clinician Unavailable Bhavin Clayton DO Attending Clinician BHAVIN CLAYTON Attending Clinician Unavailable BHAVIN CLAYTON Attending Clinician Unavailable Motility, Endoscopy Attending Clinician Unavailable Sofia Rios RN Attending Clinician KELLY MITTAL Attending Clinician Unavailable Sonia CAIT, [place] Karina Attending Clinician Kyrie PÉREZ, Kelly Attending Clinician PATRICIA SHI Attending Clinician Unavailable Maikel PÉREZ, Jeffrey Maloney Attending Clinician Unknown, Attending Attending Clinician Unavailable Lakshmi CHAVIRA, Francisca A Attending Clinician Jacob PÉREZ, Crystal Attending Clinician Luís CHAVIRA, Selma Attending Clinician CRYSTAL MAURER Admitting Clinician Unavailable KELLY MITTAL Admitting Clinician Unavailable Kyrie PÉREZ, Kelly Admitting Clinician SARA AVERY Admitting Clinician Unavailable JOSE FRASER Admitting Clinician Unavailable Payers Payer Name Policy Type Policy Number Effective Date Expiration Date S giovanny [employer]ET[employer] MEDICARE [id number] 2016 ADV 00:00:00 [employer] C1 [id number] 2021 Common Spiri t 00:00:00 [facility] Problems Condition Condition Condition Status Onset Resolution Last Treating Co mments Source Name Details Category Date Date Treatment Clinician Date PTOSIS, PTOSIS, Diagnosis Active 2022-10-15 Memoria ECTROPION, ECTROPION, 09-26 15:22:00 l PROPTOSIS, PROPTOSIS, 00:00: He arian EPIPHORA, EPIPHORA, 00 Active 09/26/2022 [facility] CHRONIC CHRONIC Diagnosis Active 2021-11-12 Memoria LACRIMAL LACRIMAL 10-12 13:56:00 l CANALICULI CANALICULI 00:00: He arian TIS OF TIS OF 00 BILATE BILATE Active 10/12/2021 [facility] UNK UNK Diagnosis Active 2021-02-21 Mem oria Active 02-10 10:10:00 l 02/10/2021 00:00: Beny hurley 00 [place] Microalbum Microalbum Disease Active U nivers inuria inuria 5-24 ity of 00:00: [address] Thiamine Thiamine Disease Active 2019-09 Unive rs deficiency deficiency 2-16 it y of 00:00: [place] [facility] Iron Iron Disease Active 2019-09 Univers deficiency deficiency 2-16 it y of 00:00: Medical Branch Venous Venous Disease Active 2019-09 Univers insufficie insufficie 2-09 it y of ncy ncy 00:00: 00 Medical Branch Pulmonary Pulmonary Disease Active Uni vers embolism embolism 3-21 ity of 00:00: Medical Branch History of History of Disease Active Overview : Univers colon colon 9-20 Formattin ity of polyps polyps 00:00: g of this 00 note Medical might be Branch different from the original. Added automatic ally from request for surgery [id number] Asthma Asthma Disease Active Univers exacerbati exacerbati 1-22 it y of on on 00:00: Medical Branch Renal Renal Disease Active Univers cyst, cyst, 1-21 ity of right right 00:00: Medical Branch Radiculopa Radiculopa Disease Active U nivers thy thy 2-01 ity of 00:00: Medical Branch Spinal Spinal Disease Active Univers stenosis, stenosis, 1-31 ity of lumbar lumbar 00:00: [place] region, region, 00 Medical without without Branch neurogenic neurogenic claudicati claudicati on on Enlarged Enlarged Disease Active 2016-09 Unive rs uterus uterus 0-31 ity of 00:00: [place] 00 Medical Branch Pelvic Pelvic Disease Active 2016-09 Univers mass mass 0-31 ity of 00:00: 00 Medical Branch Thickened Thickened Disease Active 2016-09 Uni vers endometriu endometriu 0-31 it y of m m 00:00: Medical Branch Fibroid Fibroid Disease Active 2016-09 Univers uterus uterus 0-31 ity of 00:00: [place] 00 Medical Branch Fatty Fatty Disease Active 2016-09 Univers liver liver 0-05 ity of 00:00: [place] 00 Medical Branch Abnormal Abnormal Disease Active Unive rs LFTs LFTs 9-21 ity of (liver (liver 00:00: [place] function function 00 Medica l tests) tests) Branch Chronic Chronic Disease Active Univers insomnia insomnia 9-21 ity of 00:00: [place] 00 Medical Branch 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 9-21 it y of ia ia 00:00: [place] 00 Medical Branch No known No known Disease Metho di active active st problems problems Hospit a l [id number] Memory Problem Common change Spirit - CHI [facility] [id number] Type 2 [place] [id number] diabetes Spirit mellitus - CHI with other diabetic [facility] kidney Medical complicati Center on [id number] Type 2 Problem Commo n 05 diabetes Spirit mellitus - CHI with diabetic [facility] chronic Medical kidney Center disease [id number] Depression Problem Com mon , major, Spirit single - CHI episode, [facility] [id number] Chronic Problem Commo n kidney Spirit disease, - [id number] Body mass Problem Com mon index Spirit [BMI] - [facility] 37.0-37.9, [facility] [id number] Morbid Problem Commo n [id number] (severe) Spirit obesity - CHI due to [facility] [id number] Obstructiv Problem Com mon e sleep Spirit apnea - [facility] Congestive 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 - [facility] [id number] Osteoporos Problem Com mon is, Spirit [facility]specifie - [facility], Medical unspecifie Center d pathologic al fracture presence [id number] Nonalcohol Problem Co mmon ic fatty Spirit liver - CHI disease [facility] [id number] Type 2 Problem Common diabetes Spirit mellitus - CHI with [facility], Medical without Center long-term current use of insulin [id number] Coronary Problem Comm on artery Spirit disease of - CHI curyung artery of [facility] curyung Medical heart with Center stable angina pectoris [id number] Essential Problem Comm on hypertensi Spirit on - [facility] [id number] Stented Problem Commo n coronary Spirit artery - CHI [facility] [id number] Acquired Problem Comm on hypothyroi Spirit dism - [facility] [id number] GERD Problem Common without Spirit esophagiti - CHI [facility] [id number] Primary Problem Common insomnia Spirit - [facility] [id number] Mixed Problem Common hyperlipid Spirit emia - [facility] [id number] Acute Problem Common adjustment Spirit disorder - CHI with [facility] [id number] Paroxysmal Problem Co mmon atrial Spirit fibrillati - CHI on [facility] [id number] Diverticul Problem Co mmon osis large Spirit intestine - [facility]I w/[facility] Center w/o bleeding Edema Edema Disease Active Univers ity [facility] Type 2 Type 2 Disease Active Univers diabetes diabetes ity of mellitus mellitus [place] without without Medical complicati complicati Br anch on, on, without without long-term long-term current current use of use of insulin insulin Dry eyes Dry eyes Disease Active Unive rs ity of [facility] Edema Edema Disease [facility] Esophageal Esophageal Disease Active U nivers reflux reflux ity [facility] Obesity Obesity Disease Active [facility] Parapelvic Parapelvic Disease Active U nivers renal cyst renal cyst it y of [facility] Chronic Chronic Disease Active Univers low back low back ity of pain [place] sciatic[place] sciatica Medica Branch Depressive Problem Resolve 2021-11-07 Memoria disorder Depressive d 08:39:00 l (disorder) disorder Herm josefina (disorder) Resolved Problem 11/07/2021 Medical Group,[facility] History of History Problem Resolve 2021-11-07 Memoria - [facility] - d 08:39:00 l palsy [facility] [place] (context-d palsy ependent (context-d category) ependent category) [facility] of History Problem Resolve 2021-11-07 Memoria Lyme of Lyme d 08:39:00 l disease disease [place] (situation (situation ) ) Resolved Problem [facility] Chronic Chronic Problem Active 2021-11-07 Me moria congestive congestive 08:39:00 l heart heart [place] failure failure (disorder) (disorder) Active Problem 11/07/2021 Medical [facility] Diabetes Diabetes Problem Active 2021-11-07 Memoria mellitus mellitus 08:39:00 l (disorder) (disorder) He rmann Active Problem 11/07/2021 [facility] Ectropion Ectropion Problem Active 2021-11-07 Memoria of eyelid of eyelid 08:39:00 l (disorder) (disorder) He rmann Active Problem 11/07/2021 Medical Group,[facility] Heartburn Heartburn Problem Active 2021-11-07 Memoria (finding) (finding) 08:39:00 l Active [place] Problem 11/07/2021 Medical Group,[facility] Hypertensi Hypertens Problem Active 2021-11-07 Memoria ve karolyn 08:39:00 l disorder, disorder, Herm josefina systemic systemic arterial arterial (disorder) (disorder) Active Problem 11/07/2021 Medical Group,[facility] Hypothyroi Hypothyro Problem Active 2021-11-07 Memoria dism idism 08:39:00 l (disorder) (disorder) He rmann Active Problem 11/07/2021 [facility] Morbid Morbid Problem Active 2021-11-07 Ramses emanuel obesity obesity 08:39:00 l (disorder) (disorder) He rmann Active Problem 11/07/2021 [facility] Peripheral Periphera Problem Active 2021-11-07 Memoria arterial l arterial 08:39:00 l disease disease [place] Active Problem 11/07/2021 [facility] Ptosis of Ptosis of Problem Active 2021-11-07 Memoria eyelid eyelid 08:39:00 l (disorder) (disorder) He rmann Active Problem 11/07/2021 [facility] Deep Deep Problem Resolve 2021-11-07 Ramses emanuel venous venous d 08:39:00 l thrombosis thrombosis He rmann (disorder) (disorder) Resolved Problem 11/07/2021 Medical Group,[facility] Allergies, Adverse Reactions, Alerts Allergy Allergy Status Severity Reaction(s) Onset Inactive Treating Comm ents Source Name Type Date Date Clinician Lisinopr Propensi Active Cough Method i il ty to 4-27 st adverse 00:00: Hospita reaction 00 l s to drug Penicill Propensi Active Rash Method i ins ty to 4-27 st adverse 00:00: Hospita reaction 00 l s to drug METOPROL DRUG Active Med ITCHING Univers OL INGREDI 02-04 ity of 00:00: [address] Metoprol Propensi Active Rash Univer s ol ty to 02-04 ity of adverse 00:00: [place] reaction 00 Medical s Branch LOSARTAN DRUG Active Dizziness 2020-0 Unive rs INGREDI 9- ity of 00:00: [place] 00 Medical Branch AMLODIPI DRUG Active Other-Cmnt 2020-0 Univ ers NE INGREDI 9 ity of 00:00: [place] 00 Medical Branch Amlodipi Propensi Active Other - See 2020-0 GERD U nivers ne ty to comments 9 ity of adverse 00:00: [place] reaction 00 Medical s Branch Losartan Propensi Active Dizziness 2020-0 Uni vers ty to 9 ity of adverse 00:00: [place] reaction 00 Medical s Branch APIXABAN DRUG Active Swelling 2020-0 Univer s INGREDI 4- ity of 00:00: [place] 00 Medical Branch Apixaban Propensi Active Swelling 2020-0 Univ ers ty to 01-04 ity of adverse 00:00: [place] reaction 00 [...] reaction 00 Medical Inhibito s Branch rs penicill penicill Active Memori a in in l [place] ampicill ampicill Active Memori a in in l [place] lisinopr lisinopr Active Memori a il il l [place] ampicill ampicill Active rash Common in in Spirit [facility] lisinopr lisinopr Active Cough Common il il [facility] Social History Social Habit Start Date Stop Date Quantity Comments Source Gender identity [facility] History of Tobacco Common Spirit - Use [facility] Sexual orientation Method ist Hospital Alcohol intake 2022-07-10 2022-07-10 Lifetime [facility]ain 00:00:00 00:00:00 non-drinker Hospital (finding) History of Social 2022-07-10 2022-07-[address] function 00:00:00 00:00:00 Hospital Tobacco use and 2022-01-11 2022-01-11 Smokeless Jain exposure 00:00:00 00:00:00 tobacco non-user Hospital Social History 2021-10-28 2021-10-28 [facility] 20:55:52 20:55:52 Exposure to 2021-02-06 2021-03-08 Not sure University of SARS-CoV-2 (event) 00:00:00 14:56:00 [place] [facility] History SDAZ Food 2019-12-07 2019-12-07 1 Univers ity of Worry 00:00:00 00:00:00 [place] [facility] History [facility] Food 2019-12-07 2019-12-07 1 Univers ity of Scarcity 00:00:00 00:00:00 [place] [facility] History [facility] 2019-12-07 2019-12-07 2 University o f Transport Med 00:00:00 00:00:00 [facility] al Branch History SDOH 2019-12-07 2019-12-07 2 [place] o f Transport Non-Med 00:00:00 00:00:[address] [facility] [facility] Sex Assigned At [birth year] Jain 00:00:00 00:00:00 Hospital Smoking Status Start Date Stop Date Source Never smoked tobacco [facility] Medications Ordered Filled Start Stop Current Ordering Indication Dosage Frequency Signature Comments Components Source Medication Medication Date Date Medication? Clinician (SIG) Name Name erythromyci Yes Apply a Met hodi n 0.5% 4-[address] (ILOTYCIN) 00:00: ribbon to Ho spita 5 mg/gram 00 the l (0.5 %) stiches/wo ophthalmic und 4 ointment times a day for 7 days then stop erythromyci Yes Apply a Met hodi n 0.5% 4-[address] (ILOTYCIN) 00:00: ribbon to Ho spita 5 mg/gram 00 the l (0.5 %) stiches/wo ophthalmic und 4 ointment times a day for 7 days then stop erythromyci Yes Apply a Met hodi n 0.5% 4-[address] (ILOTYCIN) 00:00: ribbon to Ho spita 5 mg/gram 00 the l (0.5 %) stiches/wo ophthalmic und 4 ointment times a day for 7 days then stop erythromyci Yes Apply a Met hodi n 0.5% 4-[address] (ILOTYCIN) 00:00: ribbon to Ho spita 5 mg/gram 00 the l (0.5 %) stiches/wo ophthalmic und 4 ointment times a day for 7 days then stop erythromyci Yes Apply a Met hodi n 0.5% 4-[address] (ILOTYCIN) 00:00: ribbon to Ho spita 5 mg/gram 00 the l (0.5 %) stiches/wo ophthalmic und 4 ointment times a day for 7 days then stop pravastatin 2021-09- No 20mg Q2D Take 1 [...] ospita 41 :00 30 DAY(S) l losartan 2021-09 No 1 TABLET Meth stan [...] 2022-0 Yes 1{tbl} 1 tablet. Methodi succinate - st XL 15:02: Hospita (TOPROL-XL) 43 l 50 mg 24 hr tablet citalopram 2022-0 Yes 1{tbl} 1 tablet. Methodi (CeleXA) 40 6- st MG tablet 15:02: Hospita 43 l metoprolol 2022-0 Yes 1{tbl} 1 tablet. Methodi succinate 02-15 st XL 15:02: Hospita (TOPROL-XL) 43 l 50 mg 24 hr tablet citalopram 2022-0 Yes 1{tbl} 1 tablet. Methodi (CeleXA) 40 6- st MG tablet 15:02: Hospita 43 l metoprolol 2022-0 Yes 1{tbl} 1 tablet. Methodi succinate 02-15 st XL 15:02: Hospita (TOPROL-XL) 43 l 50 mg 24 hr tablet losartan 2022-0 Yes 1 TABLET Metho di (COZAAR) 50 6- ORALLY st MG tablet 15:02: ONCE A DAY Ho spita 43 30 DAY(S) l citalopram 2022-0 Yes 1{tbl} 1 tablet. Methodi (CeleXA) 40 6- st MG tablet 15:02: Hospita 43 l pravastatin 2022-0 Yes 1{tbl} Q2D Take 1 Me thodi (PRAVACHOL) 02-[address] 20 MG 15:02: mouth Hospita tablet 43 every l other day. metoprolol 2022-0 Yes 1{tbl} 1 tablet. Methodi succinate 02-15 st XL 15:02: Hospita (TOPROL-XL) 43 l 50 mg 24 hr tablet citalopram 2022-0 Yes 1{tbl} 1 tablet. Methodi (CeleXA) 40 6- st MG tablet 15:02: Hospita 43 l [...] l 50 mg 24 hr tablet fluticasone 2-0 Yes QD Inhale 1 Me [...] blister with device powder for inhalation fluticasone 2021-0 2021- No 1{puff} Q.5D Inhale 1 Methodi propion-serge 6- 06-[address] meteroL 00:00: 00:00 (two) Hospita (AirDuo 00 :00 times a l RespiClick) day. 232-14 mcg/actuati on aerosol powdr breath activated fluticasone 2021-0 2021- No 1{puff} Q.5D Inhale 1 Methodi propion-serge 6- 06- puff [address] st meteroL 00:00: 00:00 (two) Hospita (AirDuo 00 :00 times a l RespiClick) day. 232-14 mcg/actuati on aerosol powdr breath activated levothyroxi 2021-0 Yes Method i ne 5-31 st (SYNTHROID) 00:00: Hospit a 75 mcg 00 l tablet levothyroxi 2021-0 Yes Method i ne 5-31 st (SYNTHROID) 00:00: Hospit a 75 mcg 00 l tablet levothyroxi 2-0 Yes Method i ne 5-31 st (SYNTHROID) 00:00: Hospit a 75 mcg 00 l tablet levothyroxi 2-0 Yes Method i ne 5-31 st (SYNTHROID) 00:00: Hospit a 75 mcg 00 l tablet levothyroxi 2-0 Yes Method i ne 5-31 st (SYNTHROID) 00:00: Hospit a 75 mcg 00 l tablet levothyroxi 2022-0 Yes Method i ne 5-31 st (SYNTHROID) 00:00: Hospit a 75 mcg 00 l tablet levothyroxi 2-0 Yes Method i ne 5-31 st (SYNTHROID) 00:00: Hospit a 75 mcg 00 l tablet Breo 2021-0 2021- No Methodi Ellipta 02-13 st 200-25 00:00: 00:00 Hospita mcg/dose 00 :00 l blister with device powder for inhalation Breo 2021-0 2021- No Methodi Ellipta 02-13 st 200-25 00:00: 00:00 Hospita mcg/dose 00 :00 l blister with device powder for inhalation DEXILANT 60 2-0 Yes [id number] 60mg TAKE 1 Univers mg capsule 4-18 CAPSULE BY ity of 00:00: MOUTH [place] 00 DAILY. Medical STOP Branch ESOMEPRAZO LE. DEXILANT 60 2-0 Yes [id number] 60mg TAKE 1 Univers mg capsule 4-18 CAPSULE BY ity of 00:00: MOUTH [place] 00 DAILY. Medical STOP Branch ESOMEPRAZO LE. DEXILANT 60 2-0 Yes [id number] 60mg TAKE 1 Univers mg capsule 4-18 CAPSULE BY ity of 00:00: MOUTH [place] 00 DAILY. Medical STOP Branch ESOMEPRAZO LE. dexlansopra 2022-0 Yes 60mg Take 60 mg Methodi zole 4-[address] (DEXILANT) 00:00: Hospita 60 mg 00 l capsule dexlansopra 2022-0 Yes 60mg Take 60 mg Methodi zole 4-[address] (DEXILANT) 00:00: Hospita 60 mg 00 l capsule dexlansopra 2022-0 Yes 60mg Take 60 mg Methodi zole 4-[address] (DEXILANT) 00:00: Hospita 60 mg 00 l capsule dexlansopra 2022-0 Yes 60mg Take 60 mg Methodi zole 4-[address] (DEXILANT) 00:00: Hospita 60 mg 00 l capsule dexlansopra 2022-0 Yes 60mg Take 60 mg Methodi zole 4-[address] (DEXILANT) 00:00: Hospita 60 mg 00 l capsule dexlansopra 2022-0 Yes 60mg Take 60 mg Methodi zole 4-[address] (DEXILANT) 00:00: Hospita 60 mg 00 l capsule dexlansopra 2022-0 Yes 60mg Take 60 mg Methodi zole 4-[address] (DEXILANT) 00:00: Hospita 60 mg 00 l capsule spironolact 2022-0 Yes 25mg QD Take 25 mg Methodi one 4-[address] (ALDACTONE) 00:00: daily. Hosp yoshi 25 MG 00 l tablet spironolact 2022-0 Yes 25mg QD Take 25 mg Methodi one 4-[address] (ALDACTONE) 00:00: daily. Hosp yoshi 25 MG 00 l tablet spironolact 2022-0 Yes 25mg QD Take 25 mg Methodi one 4-[address] (ALDACTONE) 00:00: daily. Hosp yoshi 25 MG 00 l tablet spironolact 2022-0 Yes 25mg QD Take 25 mg Methodi one 4-[address] (ALDACTONE) 00:00: daily. Hosp yoshi 25 MG 00 l tablet spironolact 2022-0 Yes 25mg QD Take 25 mg Methodi one 4-[address] (ALDACTONE) 00:00: daily. Hosp yoshi 25 MG 00 l tablet spironolact 2022-0 Yes 25mg QD Take 25 mg Methodi one 4-[address] (ALDACTONE) 00:00: daily. Hosp yoshi 25 MG 00 l tablet spironolact 2022-0 Yes 25mg QD Take 25 mg Methodi one 4-[address] (ALDACTONE) 00:00: daily. Hosp yoshi 25 MG 00 l tablet DEXILANT 60 2021-0 Yes [id number] 60mg TAKE 1 Univers mg capsule 3-22 CAPSULE BY ity of 00:00: MOUTH [place] 00 DAILY. Medical STOP Branch ESOMEPRAZO LE. DEXILANT 60 2-0 2022- No [id number] 60mg TAKE 1 Univers mg capsule 3-22 04-18 CAPSULE BY it y of 00:00: 00:00 MOUTH [place] 00 :00 DAILY. Medical STOP Branch ESOMEPRAZO LE. furosemide 2-0 Yes 40mg QD Take 40 mg M ethodi (LASIX) 40 3-[address] mg tablet 00:00: daily. Hospit a 00 l furosemide 2022-0 Yes 40mg QD Take 40 mg M ethodi (LASIX) 40 3-[address] mg tablet 00:00: daily. Hospit a 00 l furosemide 2022-0 Yes 40mg QD Take 40 mg M ethodi (LASIX) 40 3-[address] mg tablet 00:00: daily. Hospit a 00 l furosemide 2022-0 Yes 40mg QD Take 40 mg M ethodi (LASIX) 40 3-[address] mg tablet 00:00: daily. Hospit a 00 l furosemide 2022-0 Yes 40mg QD Take 40 mg M ethodi (LASIX) 40 3-[address] mg tablet 00:00: daily. Hospit a 00 l furosemide 2-0 Yes 40mg QD Take 40 mg M ethodi (LASIX) 40 3-[address] mg tablet 00:00: daily. Hospit a 00 l furosemide 2-0 Yes 40mg QD Take 40 mg M ethodi (LASIX) 40 3-[address] mg tablet 00:00: daily. Hospit a 00 l Farxiga 5 Farxiga 5 2021-0 2- No 1{table QD Farxiga 5 MG MG 3-15 -14 t} MG 00:00: 00:00 00 :00 Farxiga 5 Farxiga 5 2021-0 2021- No 1{table QD Farxiga 5 MG MG 3-15 -14 t} MG 00:00: 00:00 00 :00 aspirin 2-0 Yes 81mg QD Take 81 mg Meth stan (ECOTRIN) 2-[address] 81 MG 00:00: daily. Hospita enteric 00 l coated tablet aspirin 2-0 Yes 81mg QD Take 81 mg Meth stan (ECOTRIN) 2-[address] 81 MG 00:00: daily. Hospita enteric 00 l coated tablet aspirin 2-0 Yes 81mg QD Take 81 mg Meth stan (ECOTRIN) 2-[address] 81 MG 00:00: daily. Hospita enteric 00 l coated tablet aspirin 2-0 Yes 81mg QD Take 81 mg Meth stan (ECOTRIN) 2-[address] 81 MG 00:00: daily. Hospita enteric 00 l coated tablet aspirin 2-0 Yes 81mg QD Take 81 mg Meth stan (ECOTRIN) 2-[address] 81 MG 00:00: daily. Hospita enteric 00 l coated tablet aspirin 2-0 Yes 81mg QD Take 81 mg Meth stan (ECOTRIN) 2-[address] 81 MG 00:00: daily. Hospita enteric 00 l coated tablet CLOPIDOGREL 2022-0 Yes [id number] TAKE 1 Univers 75 mg 2-25 [id number] TABLET BY ity of tablet 00:00: MOUTH [place] [address] EVERY DAY Medical Branch CLOPIDOGREL 2022-0 Yes [id number] TAKE 1 Univers 75 mg 2-25 [id number] TABLET BY ity of tablet 00:00: MOUTH [place] 00 EVERY DAY Medical Branch CLOPIDOGREL 2021-0 Yes [id number] TAKE 1 Univers 75 mg 2-25 [id number] TABLET BY ity of tablet 00:00: MOUTH [place] 00 EVERY DAY Medical Branch CLOPIDOGREL 2021-0 Yes [id number] TAKE 1 Univers 75 mg 2-25 [id number] TABLET BY ity of tablet 00:00: MOUTH [place] 00 EVERY DAY Medical Branch CLOPIDOGREL 2021-0 Yes [id number] TAKE 1 Univers 75 mg 2-25 [id number] TABLET BY ity of tablet 00:00: MOUTH [place] 00 EVERY DAY Medical Branch aspirin 2021-0 Yes 81mg QD Take 81 mg Meth stan (ECOTRIN) 2-[address] 81 MG 00:00: daily. Hospita enteric 00 l coated tablet DEXILANT 60 Yes [id number] 60mg TAKE 1 Univers mg capsule 2-24 CAPSULE BY ity of 00:00: MOUTH [place] 00 DAILY. Medical STOP Branch ESOMEPRAZO LE. DEXILANT 60 2021- No [id number] 60mg TAKE 1 Univers mg capsule 2-24 [...] mL, NEB, l Inhalant 18:42: PRN, 0 [place] Solution 00 Refill(s) Albuterol Yes 2.5 mg = 3 Me moria 0.83 MG/ML 2-16 mL, NEB, l Inhalant 18:42: PRN, 0 [place] Solution 00 Refill(s) Albuterol Yes 2.5 mg = 3 Me moria 0.83 MG/ML 2-16 mL, NEB, l Inhalant 18:42: PRN, 0 [place] Solution 00 Refill(s) Albuterol Yes 2.5 mg = 3 Me moria 0.83 MG/ML 2-16 mL, NEB, l Inhalant 18:42: PRN, 0 [place] Solution 00 Refill(s) Albuterol Yes 2.5 mg = 3 Me moria 0.83 MG/ML 2-16 mL, NEB, l Inhalant 18:42: PRN, 0 [place] [facility] 00 Refill(s) Albuterol 0 Yes 2.5 mg = 3 Me moria 0.83 MG/ML 2-16 mL, NEB, l Inhalant 18:42: PRN, 0 [facility] 00 Refill(s) Albuterol 0 Yes 2.5 mg = 3 Me moria 0.83 MG/ML 2-16 mL, NEB, l Inhalant 18:42: PRN, 0 [place] [facility] 00 Refill(s) Vitamin B6 0 Yes Daily, 0 [facility] o[facility] 2-16 Refill(s) l 16:59: [place] 00 Vitamin C 2022-0 Yes Daily, 0 [facility] emanuel 2-16 Refill(s) l 16:59: [place] 00 Vitamin B6 2021-0 Yes Daily, 0 [facility] 2-16 Refill(s) l 16:59: [place] 00 Vitamin C 2021-0 Yes Daily, 0 [facility] emanuel 2-16 Refill(s) l 16:59: [place] Vitamin B6 2021-0 Yes Daily, 0 [facility] o[facility] 2-16 Refill(s) l 16:59: [place] Vitamin C 2021-0 Yes Daily, 0 [facility] emanuel 2-16 Refill(s) l 16:59: [place] 00 Vitamin B6 2021-0 Yes Daily, 0 [facility] o[facility] 2-16 Refill(s) l 16:59: [place] 00 Vitamin C 2021-0 Yes Daily, 0 [facility] emanuel 2-16 Refill(s) l 16:59: [place] 00 Vitamin B6 2021-0 Yes Daily, 0 [facility] 2-16 Refill(s) l 16:59: [place] 00 Vitamin C 2021-0 Yes Daily, 0 [facility] emanuel 2-16 Refill(s) l 16:59: [place] 00 Vitamin B6 2021-0 Yes Daily, 0 [facility] 2-16 Refill(s) l 16:59: [place] 00 Vitamin C 2021-0 Yes Daily, 0 [facility] emanuel 2-16 Refill(s) l 16:59: Vitamin B6 2021-0 Yes Daily, 0 [facility] o[facility] 2-16 Refill(s) l 16:59: [place] 00 Vitamin C 2021-0 Yes Daily, 0 [facility]es emanuel 2-16 Refill(s) l 16:59: [place] 00 Vitamin B6 2021-0 Yes Daily, 0 [facility] 2-16 Refill(s) l 16:59: Vitamin C 2021-0 Yes Daily, 0 [facility] emanuel 2-16 Refill(s) l 16:59: alcaftadine 2021-0 Yes 1 drp, [facility] emanuel 2.5 MG/ML 2-16 Each l Ophthalmic 16:58: Affected [facility] [place] [facility] 00 Eye, [Lastacaft] Daily, PRN Itching, # 3 mL, 3 Refill(s) Nexium 2021-0 Yes PO, Daily, Memor ia 2-16 0 l 16:58: Refill(s) [place] alcaftadine 0 Yes 1 drp, Ramses emanuel 2.5 MG/ML 2-16 Each l Ophthalmic 16:58: Affected [facility] [place] [facility] 00 Eye, [Lastacaft] Daily, PRN Itching, # 3 mL, 3 Refill(s) Nexium 2021-0 Yes PO, Daily, Memor ia 2-16 0 l 16:58: Refill(s) [place] alcaftadine 0 Yes 1 drp, Ramses emanuel 2.5 MG/ML 2-16 Each l Ophthalmic 16:58: Affected [facility] [place] [facility] 00 Eye, [Lastacaft] Daily, PRN Itching, # 3 mL, 3 Refill(s) Nexium 2021-0 Yes PO, Daily, Memor ia 2-16 0 l 16:58: Refill(s) [place] alcaftadine 0 Yes 1 drp, Ramses emanuel 2.5 MG/ML 2-16 Each l Ophthalmic 16:58: Affected [facility] [place] [facility] 00 Eye, [Lastacaft] Daily, PRN Itching, # 3 mL, 3 Refill(s) Nexium 2021-0 Yes PO, Daily, [facility] 2-16 0 l 16:58: Refill(s) [place] alcaftadine 0 Yes 1 drp, Ramses emanuel 2.5 MG/ML 2-16 Each l Ophthalmic 16:58: Affected [facility] [place] [facility] 00 Eye, [Lastacaft] Daily, PRN Itching, # 3 mL, 3 Refill(s) Nexium 2021-0 Yes PO, Daily, [facility] 2-16 0 l 16:58: Refill(s) [place] alcaftadine 2021-0 Yes 1 drp, Ramses emanuel 2.5 MG/ML 2-16 Each l Ophthalmic 16:58: Affected [facility] [place] [facility] 00 Eye, [Lastacaft] Daily, PRN Itching, # 3 mL, 3 Refill(s) Nexium 2021-0 Yes PO, Daily, [facility] 2-16 0 l 16:58: Refill(s) [place] alcaftadine 2021-0 Yes 1 drp, Ramses emanuel 2.5 MG/ML [...] Oral Tablet 16:56: qMonth, 0 [facility] 00 Refill(s) Citalopram 2021-0 Yes 40 mg, PO, M emoria 2-16 Daily, 0 l 16:56: Refill(s) ibandronic 0 Yes 150 mg = 1 M emoria acid 150 MG 2-16 tab, PO, l Oral Tablet 16:56: qMonth, 0 [facility] 00 Refill(s) Citalopram 2021-0 Yes 40 mg, PO, M emoria 2-16 Daily, 0 l 16:56: Refill(s) ibandronic 0 Yes 150 mg = 1 M emoria acid 150 MG 2-16 tab, PO, l Oral Tablet 16:56: qMonth, 0 [facility] 00 Refill(s) Citalopram 2021-0 Yes 40 mg, PO, [...] l Oral Tablet 16:56: qMonth, 0 H Refill(s) Citalopram Yes 40 mg, PO, M emoria 2-16 Daily, 0 l 16:56: Refill(s) ibandronic Yes 150 mg = 1 M emoria acid 150 MG 2-16 tab, PO, l Oral Tablet 16:56: qMonth, 0 [facility] Refill(s) Losartan Yes 50 mg, PO, Mem o[facility] 2-16 Daily, 0 l 16:55: Refill(s) Losartan Yes 50 mg, PO, [facility] o[facility] 2-16 Daily, 0 l 16:55: Refill(s) Losartan Yes 50 mg, PO, [facility] o[facility] 2-16 [...] tab, PO, l Tablet 20:38: Daily, 0 [Plavix] Refill(s) clopidogrel 2-0 Yes 75 mg = 1 M emoria 75 MG Oral 2-11 tab, PO, l Tablet 20:38: Daily, 0 [place] [Plavix] 00 Refill(s) clopidogrel 2-0 Yes 75 mg = 1 M emoria 75 MG Oral 2-11 tab, PO, l Tablet 20:38: Daily, 0 [place] [Plavix] 00 Refill(s) clopidogrel 2022-0 Yes 75 mg = 1 M emoria 75 MG Oral 2-11 tab, PO, l Tablet 20:38: Daily, 0 [place] [Plavix] 00 Refill(s) clopidogrel 2-0 Yes 75 mg = 1 M emoria 75 MG Oral 2-11 tab, PO, l Tablet 20:38: Daily, 0 [place] [Plavix] 00 Refill(s) clopidogrel 2-0 Yes 75 mg = 1 M emoria 75 MG Oral 2-11 tab, PO, l Tablet 20:38: Daily, 0 [place] [Plavix] 00 Refill(s) clopidogrel 2-0 Yes 75 mg = 1 M emoria 75 MG Oral 2-11 tab, PO, l Tablet 20:38: Daily, 0 [place] [Plavix] 00 Refill(s) clopidogrel 2-0 Yes 75 mg = 1 M emoria 75 MG Oral 2-11 tab, PO, l Tablet 20:38: Daily, 0 [place] [Plavix] 00 Refill(s) Aspirin 2-0 Yes 81 mg, PO, [facility] emanuel 2-11 Daily, 0 l 20:37: Refill(s) [place] 00 Aspirin 2-0 Yes 81 mg, PO, [facility] emanuel 2-11 Daily, 0 l 20:37: Refill(s) [place] 00 Aspirin 2-0 Yes 81 mg, PO, [facility]es emanuel 2-11 Daily, 0 l 20:37: Refill(s) [place] 00 Aspirin 2-0 Yes 81 mg, PO, [facility]es emanuel 2-11 Daily, 0 l 20:37: Refill(s) [place] 00 Aspirin 2-0 Yes 81 mg, PO, Ramses emanuel 2-11 Daily, 0 l 20:37: Refill(s) Aspirin 2-0 Yes 81 mg, PO, [facility] emanuel 2-11 Daily, 0 l 20:37: Refill(s) Aspirin 2021-0 Yes 81 mg, PO, [facility] emanuel 2-11 Daily, 0 l 20:37: Refill(s) Aspirin 2021-0 Yes 81 mg, PO, [facility] emanuel 2-11 Daily, 0 l 20:37: Refill(s) clopidogreL Yes 1{tbl} QD Take 1 [facility] (PLAVIX) 75 2-[address] [facility] daily. l clopidogreL 0 Yes 1{tbl} QD Take 1 [facility] [...] 00:00: [facility] 00 daily. l clopidogreL 0 Yes 1{tbl} QD Take 1 [facility] (PLAVIX) 75 2-[address] mg tablet 00:00: [facility] 00 daily. l clopidogreL 0 Yes 1{tbl} QD Take 1 Me thodi [...] MG MG 00:00: eeded} 00 DEXILANT 60 2020- Yes [id number] 60mg TAKE 1 [facility] mg capsule 8-18 CAPSULE BY ity of 00:00: MOUTH [place] DAILY. Medical [facility] YEN lisinopriL 0 Yes [id number] 20mg Take 1 U nivers 20 mg 6-22 tablet by it[facility] of tablet 00:00: mouth [place] 00 daily. Medical Branch levothyroxi 0 Yes [id number] 50ug Take 1 [facility] ne 50 mcg 6-22 tablet by ity o f tablet 00:00: mouth [place] 00 every Medical morning. Branch lisinopriL 0 Yes [id number] 20mg Take 1 U nivers 20 mg 6-22 tablet by ity of tablet 00:00: mouth [place] 00 daily. Medical Branch levothyroxi 0 Yes [id number] 50ug Take 1 [facility] ne 50 mcg 6-22 tablet by ity o f tablet 00:00: mouth [place] 00 every Medical morning. Branch lisinopriL 0 Yes [id number] 20mg Take 1 U n[facility] 20 mg 6-22 tablet by it[facility] of tablet 00:00: mouth [place] 00 daily. Medical [facility] levothyroxi 2020-0 Yes [id number] 50ug Take 1 [facility] ne 50 mcg 6-22 tablet by ity o f tablet 00:00: mouth [place] 00 every Medical morning. Branch lisinopriL 0 Yes [id number] 20mg Take 1 U nivers 20 mg 6-22 tablet by ity of tablet 00:00: mouth [place] 00 daily. Medical Branch levothyroxi 0 Yes [id number] 50ug Take 1 [facility] ne 50 mcg 6-22 tablet by ity o f tablet 00:00: mouth [place] 00 every Medical morning. Branch lisinopriL 2020-0 Yes [id number] 20mg Take 1 [facility] 20 mg 6-22 tablet by it[facility] of tablet 00:00: mouth [place] 00 daily. Medical [facility] levothyroxi 0 Yes [id number] 50ug Take 1 [facility] ne 50 mcg 6-22 tablet by ity o f tablet 00:00: mouth [place] 00 every Medical morning. Branch lisinopriL 2020-0 Yes [id number] 20mg Take 1 [facility] 20 mg 6-22 tablet by [facility] of tablet 00:00: mouth [place] 00 daily. Medical [facility] levothyroxi 2020-0 Yes [id number] 50ug Take 1 [facility] ne 50 mcg 6-22 tablet by ity o f tablet 00:00: mouth [place] 00 every Medical morning. Branch lisinopriL 0 Yes [id number] 20mg Take 1 [facility] 20 mg 6-22 tablet by it[facility] of tablet 00:00: mouth [place] 00 daily. Medical [facility] levothyroxi 2020-0 Yes [id number] 50ug Take 1 [facility] ne 50 mcg 6-22 tablet by ity o f tablet 00:00: mouth [place] 00 every Medical morning. Branch lisinopriL 2020-0 Yes [id number] 20mg Take 1 [facility] 20 mg 6-22 tablet by it[facility] of tablet 00:00: mouth [place] 00 daily. Medical [facility] levothyroxi 0 Yes [id number] 50ug Take 1 [facility] ne 50 mcg 6-22 tablet by ity o f tablet 00:00: mouth [place] 00 every Medical morning. Branch lisinopriL 0 Yes [id number] 20mg Take 1 [facility] 20 mg 6-22 tablet by [facility] of tablet 00:00: mouth [place] 00 daily. Medical [facility] levothyroxi 0 Yes [id number] 50ug Take 1 [facility] ne 50 mcg 6-22 tablet by ity o f tablet 00:00: mouth [place] 00 every Medical morning. Branch lisinopriL 0 Yes [id number] 20mg Take 1 [facility] 20 mg 6-22 tablet by it[facility] of tablet 00:00: mouth [place] 00 daily. Medical Branch levothyroxi 0 Yes [id number] 50ug Take 1 [facility] ne 50 mcg 6-22 tablet by ity o f tablet 00:00: mouth [place] 00 every Medical morning. Branch lisinopriL 0 Yes [id number] 20mg Take 1 [facility] nivers 20 mg 6-22 tablet by ity of tablet 00:00: mouth [place] 00 daily. Medical Branch levothyroxi 2020-0 Yes [id number] 50ug Take 1 [facility] ne 50 mcg 6-22 tablet by ity o f tablet 00:00: mouth [place] 00 every Medical morning. Branch LEVOTHYROXI 2020-0 Yes [id number] TAKE 1 [facility] NE 50 mcg 6-21 TABLET BY ity o f tablet 00:00: MOUTH [place] 00 EVERY DAY Medical IN THE Branch MORNING LEVOTHYROXI 2020-0 2020- No [id number] TAKE 1 [facility] NE 50 mcg 6-21 06-22 TABLET BY ity of tablet 00:00: 00:00 MOUTH [place] 00 :00 EVERY DAY Medical IN THE [place] MORNING LEVOTHYROXI 0 2021- No [id number] TAKE 1 [facility] NE 50 mcg 6-07 03- TABLET BY ity of tablet 00:00: 00:00 MOUTH [place] 00 :00 EVERY DAY Medical IN THE [place] MORNING TRIAMTERENE 2020-0 Yes [id number] TAKE 1 [facility] -HYDROCHLOR 6-08 TABLET BY ity of OTHIAZID 00:00: MOUTH [place] 37.5-25 mg 00 EVERY DAY Medi kacey tablet Branch TRIAMTERENE 2020-0 Yes [id number] TAKE 1 [facility] -HYDROCHLOR 6-08 TABLET BY ity of OTHIAZID 00:00: MOUTH [place] 37.5-25 mg 00 EVERY DAY Medi [facility] tablet Branch TRIAMTERENE 2020-0 Yes [id number] TAKE 1 Univers -HYDROCHLOR 6-08 TABLET BY ity of OTHIAZID 00:00: MOUTH [place] 37.5-25 mg 00 EVERY DAY Medi [facility] tablet Branch TRIAMTERENE 2020-0 Yes [id number] TAKE 1 [facility] -HYDROCHLOR 6-08 TABLET BY ity of OTHIAZID 00:00: MOUTH [place] 37.5-25 mg 00 EVERY DAY Medi [facility] tablet Branch TRIAMTERENE 2020-0 Yes [id number] TAKE 1 [facility] -HYDROCHLOR 6-08 TABLET BY ity of OTHIAZID 00:00: MOUTH [place] 37.5-25 mg 00 EVERY DAY Medi kacey tablet Branch TRIAMTERENE 2020-0 Yes [id number] TAKE 1 [facility] -HYDROCHLOR 6-08 TABLET BY ity of OTHIAZID 00:00: MOUTH [place] 37.5-25 mg 00 EVERY DAY Medi [facility] tablet Branch TRIAMTERENE 2020-0 Yes [id number] TAKE 1 [facility] -HYDROCHLOR 6-08 TABLET BY ity of OTHIAZID 00:00: MOUTH [place] 37.5-25 mg 00 EVERY DAY Medi [facility] tablet Branch TRIAMTERENE 2020-0 Yes [id number] TAKE 1 [facility] -HYDROCHLOR 6-08 TABLET BY ity of OTHIAZID 00:00: MOUTH [place] 37.5-25 mg 00 EVERY DAY Medi [facility] tablet Branch TRIAMTERENE 2020-0 Yes [id number] TAKE 1 [facility] -HYDROCHLOR 6-08 TABLET BY ity of OTHIAZID 00:00: MOUTH [place] 37.5-25 mg 00 EVERY DAY Medi k[facility] tablet Branch TRIAMTERENE 2020-0 Yes [id number] TAKE 1 Univers -HYDROCHLOR 6-08 TABLET BY ity of OTHIAZID 00:00: MOUTH [place] 37.5-25 mg 00 EVERY DAY Medi [facility] tablet Branch TRIAMTERENE 2020-0 Yes [id number] TAKE 1 [facility] -HYDROCHLOR 6-08 TABLET BY ity of OTHIAZID 00:00: MOUTH [place] 37.5-25 mg 00 EVERY DAY Medi kacey tablet Branch TRIAMTERENE 2020-0 Yes [id number] TAKE 1 [facility] -HYDROCHLOR 6-08 TABLET BY ity of OTHIAZID 00:00: MOUTH [place] 37.5-25 mg 00 EVERY DAY Medi [facility] tablet Branch TRIAMTERENE 2020-0 Yes [id number] TAKE 1 [facility] -HYDROCHLOR 6-08 TABLET BY ity of OTHIAZID 00:00: MOUTH [place] 37.5-25 mg 00 EVERY DAY Medi k[facility] tablet Branch TRIAMTERENE 2020-0 Yes [id number] TAKE 1 [facility] -HYDROCHLOR 6-08 TABLET BY ity of OTHIAZID 00:00: MOUTH [place] 37.5-25 mg 00 EVERY DAY Medi kacey tablet Branch TRIAMTERENE 2020-0 Yes [id number] TAKE 1 [facility] -HYDROCHLOR 6-08 TABLET BY ity of OTHIAZID 00:00: MOUTH [place] 37.5-25 mg 00 EVERY DAY Medi [facility] tablet Branch Acetaminoph 2020-0 No 1,000 mg, M emoria en 02-21 Route: PO, l 19:59: Drug form: [facility] 00 TAB, ONCE, Dosing Weight 75.455, kg, PRN Pain Score 1-3, Start date: 02/21/21 14:59:00 CDT Oxycodone 2020-0 No 5 mg, Memoria Hydrochlori 6-07 Route: PO, l de 5 MG 19:59: [...] emanuel 02-21 Route: l 19:59: IVP, PRN, [place] 00 Dosing Weight 75.455, kg, PRN Benzodiaze [...] Mem oria 02-21 Route: l 19:59: IVP, [place] 00 Q30Min, Dosing Weight 75.455, kg, PRN Other -See Comment, For shivering, Start date: 02/21/21 14:59:00 CDT, Duration: 2 doses or times, Stop date: Limited # of times Ondansetron 2020-0 No 4 mg, Memor ia 02-21 Route: l 19:59: IVP, ONCE, [place] 00 Dosing Weight 75.455, kg, PRN Nausea & Vomiting, Start date: 02/21/21 14:59:00 CDT Acetaminoph 1-0 No 1,000 mg, M emoria en 02-21 Route: PO, l 19:59: Drug form: [place] 00 TAB, ONCE, Dosing Weight 75.455, kg, PRN Pain Score 1-3, Start date: 02/21/21 14:59:00 CDT Oxycodone 2020-0 No 5 mg, Memoria Hydrochlori - Route: PO, l de 5 MG 19:59: Drug form: Herm josefina Oral Tablet 00 TAB, Q4H, Dosing Weight 75.455, kg, PRN Pain Score 4-6, Start date: 02/21/21 14:59:00 CDT, Duration: 30 day, Stop date: 03/23/21 14:58:00 CDT Fentanyl 1-0 No 25 Memoria 6- microgram, l 19:59: Route: [place] 00 IVP, Q5Min, Dosing Weight 75.455, kg, PRN Pain Score 4-6, Priority: Routine, Start date: 02/21/21 14:59:00 CDT, Duration: 4 doses or times, Stop date: Limited # of times Hydromorpho 2020-0 No 0.5 mg, Mem oria ne 02-21 Route: l 19:59: IVP, [place] 00 Q5Min, Dosing Weight 75.455, kg, PRN Pain Score 7-10, Start date: 02/21/21 14:59:00 CDT, Duration: 4 doses or times, Stop date: Limited # of times Flumazenil 2020-0 No 0.2 mg, Ramses emanuel 02-21 Route: l 19:59: IVP, PRN, [place] 00 Dosing Weight 75.455, kg, PRN Benzodiaze pine Reversal, Initial dose, Start date: 02/21/21 14:59:00 CDT, Duration: 30 day, Stop date: 03/23/21 14:58:00 CDT Naloxone 2020-0 No 0.4 mg, Memori a 02-21 Route: l 19:59: IVP, [place] 00 Q2MIN, Dosing Weight 75.455, kg, PRN Narcotic Reversal, Start date: 02/21/21 14:59:00 CDT, Duration: 8 doses or times, Stop date: Limited # of times Meperidine 2020-0 No 12.5 mg, Mem oria 02-21 Route: l 19:59: IVP, [place] 00 Q30Min, Dosing Weight 75.455, kg, PRN Other -See Comment, For shivering, Start date: 02/21/21 14:59:00 CDT, Duration: 2 doses or times, Stop date: Limited # of times Ondansetron 0 No 4 mg, Memor ia 6 Route: l 19:59: IVP, ONCE, [place] 00 Dosing Weight 75.455, kg, PRN Nausea & Vomiting, Start date: 02/21/21 14:59:00 CDT Acetaminoph 0 No 1,000 mg, M emoria en 02-21 Route: PO, l 19:59: Drug form: [place] 00 TAB, ONCE, Dosing Weight 75.455, kg, PRN Pain Score 1-3, Start date: 02/21/21 14:59:00 CDT Oxycodone 0 No 5 mg, [facility] Hydrochlori 02-21 Route: [...] Stop date: Limited # of times Hydromorpho 0 No 0.5 mg, Mem oria ne 6 Route: l 19:59: IVP, [place] 00 Q5Min, Dosing Weight 75.455, kg, PRN Pain Score 7-10, Start date: 02/21/21 14:59:00 CDT, Duration: 4 doses or times, Stop date: Limited # of times Flumazenil 0 No 0.2 mg, Ramses emanuel 6-07 Route: l 19:59: IVP, PRN, [place] 00 Dosing Weight 75.455, kg, PRN Benzodiaze pine Reversal, Initial dose, Start date: 02/21/21 14:59:00 CDT, Duration: 30 day, Stop date: 03/23/21 14:58:00 CDT Naloxone 2020-0 No 0.4 mg, Memori a 02-21 Route: l 19:59: IVP, [place] 00 Q2MIN, Dosing Weight 75.455, kg, PRN [...] ia 02-21 Route: l 19:59: IVP, ONCE, [place] 00 Dosing Weight 75.455, kg, PRN Nausea [...] 25 Memoria 02-21 microgram, l 19:59: Route: [place] 00 IVP, Q5Min, Dosing Weight 75.455, kg, [...] emanuel 02-21 Route: l 19:59: IVP, PRN, [place] 00 Dosing Weight 75.455, kg, PRN Benzodiaze pine Reversal, Initial dose, Start date: 02/21/21 14:59:00 CDT, Duration: 30 day, Stop date: 03/23/21 14:58:00 CDT Naloxone 2020-0 No 0.4 mg, Memori a 02-21 Route: l 19:59: IVP, [place] 00 Q2MIN, Dosing Weight 75.455, kg, PRN Narcotic Reversal, Start date: 02/21/21 14:59:00 CDT, Duration: 8 doses or times, Stop date: Limited # of times Meperidine 2020-0 No 12.5 mg, Mem oria 02-21 Route: l 19:59: IVP, [place] 00 Q30Min, Dosing Weight 75.455, kg, PRN [...] 02-21 Route: PO, l 19:59: Drug form: TAB, ONCE, Dosing Weight 75.455, kg, PRN [...] 14:58:00 CDT Fentanyl 2020-0 No 25 Memoria - microgram, l 19:59: Route: [place] 00 IVP, Q5Min, Dosing Weight 75.455, kg, PRN Pain Score 4-6, Priority: Routine, Start date: 02/21/21 14:59:00 CDT, Duration: 4 doses or times, Stop date: Limited # of times Hydromorpho 2020-0 No 0.5 mg, Mem oria ne 02-21 Route: l 19:59: IVP, [place] 00 Q5Min, Dosing Weight 75.455, kg, PRN Pain Score 7-10, Start date: 02/21/21 14:59:00 CDT, Duration: 4 doses or times, Stop date: Limited # of times Flumazenil 0 No 0.2 mg, Ramses emanuel 02-21 Route: l 19:59: IVP, PRN, [place] 00 Dosing Weight 75.455, kg, PRN Benzodiaze [...] ia 02-21 Route: l 19:59: IVP, ONCE, [place] Dosing Weight 75.455, kg, PRN Nausea & Vomiting, Start date: 02/21/21 14:59:00 CDT Acetaminoph 2020-0 No 1,000 mg, M elizabeth en 02-21 Route: PO, l 19:59: Drug form: [place] 00 TAB, ONCE, Dosing Weight 75.455, kg, [...] 14:58:00 CDT Fentanyl 2020-0 No 25 Memoria - microgram, l 19:59: Route: [place] 00 IVP, Q5Min, Dosing Weight 75.455, kg, PRN Pain Score 4-6, Priority: Routine, Start date: 02/21/21 14:59:00 CDT, Duration: 4 doses or times, Stop date: Limited # of times Hydromorpho 2020-0 No 0.5 mg, Mem oria ne 02-21 Route: l 19:59: IVP, [place] 00 Q5Min, Dosing Weight 75.455, kg, PRN Pain Score 7-10, Start date: 02/21/21 14:59:00 CDT, Duration: 4 doses or times, Stop date: Limited # of times Flumazenil 2020-0 No 0.2 mg, [facility]es emanuel 02-21 Route: l 19:59: IVP, PRN, [place] 00 Dosing Weight 75.455, kg, PRN Benzodiaze [...] Mem oria 02-21 Route: l 19:59: IVP, [place] 00 Q30Min, Dosing Weight 75.455, kg, PRN Other -See Comment, For shivering, Start date: 02/21/21 14:59:00 CDT, Duration: 2 doses or times, Stop date: Limited # of times Ondansetron 2020-0 No 4 mg, Memor ia 02-21 Route: l 19:59: IVP, ONCE, [place] 00 Dosing Weight 75.455, kg, PRN Nausea & Vomiting, Start date: 02/21/21 14:59:00 CDT Acetaminoph 2020-0 No 1,000 mg, M emoria en 02-21 Route: PO, l 19:59: Drug form: [place] 00 TAB, ONCE, Dosing Weight 75.455, kg, [...] 25 Memoria 02-21 microgram, l 19:59: Route: [place] 00 IVP, Q5Min, Dosing Weight 75.455, kg, PRN Pain Score 4-6, Priority: Routine, Start date: 02/21/21 14:59:00 CDT, Duration: 4 doses or times, Stop date: Limited # of times Hydromorpho 2020-0 No 0.5 mg, Mem oria ne 02-21 Route: l 19:59: IVP, [place] 00 Q5Min, Dosing Weight 75.455, kg, PRN Pain Score 7-10, Start date: 02/21/21 14:59:00 CDT, Duration: 4 doses or times, Stop date: Limited # of times Flumazenil 2020-0 No 0.2 mg, Ramses emanuel 02-21 Route: l 19:59: IVP, PRN, [place] 00 Dosing Weight 75.455, kg, PRN Benzodiaze [...] ia 02-21 Route: l 19:59: IVP, ONCE, [place] 00 Dosing Weight 75.455, kg, PRN Nausea [...] 25 Memoria 6-07 microgram, l 19:59: Route: [place] 00 IVP, Q5Min, Dosing Weight 75.455, kg, PRN Pain Score 4-6, Priority: Routine, Start date: 02/21/21 14:59:00 CDT, Duration: 4 doses or times, Stop date: Limited # of times Hydromorpho 2020-0 No 0.5 mg, Mem oria ne 6- Route: l 19:59: IVP, [place] 00 Q5Min, Dosing Weight 75.455, kg, PRN Pain Score 7-10, Start date: 02/21/21 14:59:00 CDT, Duration: 4 doses or times, Stop date: Limited # of times Flumazenil 2020-0 No 0.2 mg, Ramses emanuel 6 Route: l 19:59: IVP, PRN, [place] 00 Dosing Weight 75.455, kg, PRN Benzodiaze [...] Mem oria 6-07 Route: l 19:59: IVP, [place] 00 Q30Min, Dosing Weight 75.455, kg, PRN Other -See Comment, For shivering, Start date: 02/21/21 14:59:00 CDT, Duration: 2 doses or times, Stop date: Limited # of times Ondansetron 2020-0 No 4 mg, Memor ia 6- Route: l 19:59: IVP, ONCE, [place] 00 Dosing Weight 75.455, kg, PRN Nausea [...] 2 tab, Memoria en 300 MG / - PO, Q6H, l Codeine 19:06: PRN Pain, Monse nn Phosphate 00 X 4 day, # 30 MG Oral 32 tab, 0 Tablet Refill(s) [Tylenol with Codeine #3] Acetaminoph Yes 1 - 2 tab, Memoria en 300 MG / -07 PO, Q6H, l Codeine 19:06: PRN Pain, Monse nn Phosphate 00 X 4 day, # 30 MG Oral 32 tab, 0 Tablet Refill(s) [Tylenol with Codeine #3] Acetaminoph Yes 1 - 2 tab, Memoria en 300 MG / 6-07 PO, Q6H, l Codeine 19:06: PRN Pain, Monse nn Phosphate 00 X 4 day, # 30 MG Oral 32 tab, 0 Tablet Refill(s) [Tylenol with Codeine #3] Acetaminoph Yes 1 - 2 tab, Memoria en 300 MG / 6-07 PO, Q6H, l Codeine 19:06: PRN Pain, M[place] nn Phosphate 00 X 4 day, # 30 MG Oral 32 tab, 0 Tablet Refill(s) [Tylenol with Codeine #3] Acetaminoph Yes 1 - 2 tab, Memoria en 300 MG / 6-07 PO, Q6H, l Codeine 19:06: PRN Pain, Monse nn Phosphate 00 X 4 day, # 30 MG Oral 32 tab, 0 Tablet Refill(s) [Tylenol with Codeine #3] Acetaminoph Yes 1 - 2 tab, Memoria en 300 MG / 6-07 PO, Q6H, l Codeine 19:06: PRN Pain, Monse nn Phosphate 00 X 4 day, # 30 MG Oral 32 tab, 0 Tablet Refill(s) [Tylenol with Codeine #3] Acetaminoph Yes 1 - 2 tab, Memoria en 300 MG / 6-07 PO, Q6H, l Codeine 19:06: PRN Pain, Monse nn Phosphate 00 X 4 day, # 30 MG Oral 32 tab, 0 Tablet Refill(s) [Tylenol with Codeine #3] Acetaminoph Yes 1 - 2 tab, Memoria en 300 MG / 6-07 PO, Q6H, l Codeine 19:06: PRN Pain, [place] nn Phosphate 00 X 4 day, # 30 MG Oral 32 tab, 0 Tablet Refill(s) [Tylenol with Codeine #3] ondansetron No Route: IV, [facility]oria (ANES) 02-21 Drug form: l 18:32: INJ, ONCE, Stop date: 02/21/21 13:32:00 CDT dexamethaso No Route: IV, Memoria ne (ANES) 02-21 Drug form: l 18:32: INJ, ONCE, Stop date: 02/21/21 13:32:00 CDT ondansetron 2020-0 No Route: IV, [facility]oria (ANES) 6- Drug form: l 18:32: INJ, ONCE, Stop [...] ondansetron 2020-0 No Route: IV, [facility]oria (ANES) 6 Drug form: l 18:32: INJ, ONCE, Stop date: 02/21/21 13:32:00 CDT dexamethaso 2020-0 No Route: IV, [facility]oria ne (ANES) 02-21 Drug form: l 18:32: INJ, ONCE, Stop date: 02/21/21 13:32:00 CDT ondansetron 2020-0 No Route: IV, Memoria (ANES) 6 Drug form: l 18:32: INJ, ONCE, Stop date: 02/21/21 13:32:00 CDT dexamethaso 2020-0 No Route: IV, Memoria ne (ANES) 02-21 Drug form: l 18:32: INJ, ONCE, Stop date: 02/21/21 13:32:00 CDT ondansetron No Route: IV, Memoria (ANES) 02-21 Drug form: l 18:32: INJ, ONCE, Stop date: 02/21/21 13:32:00 CDT dexamethaso No Route: IV, Memoria ne (ANES) 02-21 Drug form: l 18:32: INJ, ONCE, Stop date: 02/21/21 13:32:00 CDT ondansetron No Route: IV, Memoria (ANES) 02-21 Drug form: l 18:32: INJ, ONCE, Stop date: 02/21/21 13:32:00 CDT dexamethaso 0 No Route: IV, Memoria ne (ANES) 02-21 Drug form: l 18:32: INJ, ONCE, Stop date: 02/21/21 13:32:00 CDT lidocaine No Route: IV, Me moria (ANES) 02-21 Drug form: l 18:27: INJ, ONCE, Stop date: 02/21/21 13:27:00 CDT fentaNYL 2020-0 No Route: IV, Mem oria (ANES) 02-21 Drug form: l 18:27: INJ, ONCE, Stop date: 02/21/21 13:27:00 CDT propofol No Route: IV, Mem oria (ANES) 02-21 Drug form: l 18:27: INJ, ONCE, Stop date: 02/21/21 13:27:00 CDT rocuronium No Route: IV, M emoria (ANES) 02-21 Drug form: l 18:27: INJ, ONCE, Stop date: 02/21/21 13:27:00 CDT ceFAZolin No Route: IV, Me moria (ANES) 02-21 [...] ONCE, Stop date: 02/21/21 13:27:00 CDT lidocaine 202-0 No Route: IV, Me [...] 2020-0 No Route: IV, M emoria (ANES) 6 Drug form: l 18:27: INJ, ONCE, Stop [...] ONCE, Stop date: 02/21/21 13:27:00 CDT lidocaine No Route: IV, moria (ANES) 6-07 Drug form: l 18:27: INJ, ONCE, Stop date: 02/21/21 13:27:00 CDT fentaNYL No Route: IV, Mem oria (ANES) 6- Drug form: l 18:27: INJ, ONCE, Stop date: 02/21/21 13:27:00 CDT propofol No Route: IV, Mem oria (ANES) 6- Drug form: l 18:27: INJ, ONCE, Stop date: 02/21/21 13:27:00 CDT rocuronium No Route: IV, Lashae murilloa (ANES) 6- Drug form: l 18:27: INJ, ONCE, Stop date: 02/21/21 13:27:00 CDT ceFAZolin No Route: IV, moria (ANES) 6- Drug form: l 18:27: INJ, ONCE, Stop date: 02/21/21 13:27:00 CDT Lactated No [...] CDT, Stop date: 02/21/21 13:37:00 CDT Lactated 2020-0 No Route: IV, Mem oria Ringers 6-07 Total l Injection 17:37: Volume: Monse nn IV (ANES) 00 1,000, 1000 mL Start date: 02/21/21 12:37:00 CDT, Stop date: 02/21/21 13:37:00 CDT Lactated 2020-0 No Route: IV, Mem oria Ringers 6-07 Total l Injection 17:37: Volume: Monse nn IV (ANES) 00 1,000, 1000 mL Start date: 02/21/21 12:37:00 CDT, Stop date: 02/21/21 13:37:00 CDT Lactated 2020-0 No Route: IV, Mem oria Ringers 6-07 Total l Injection 17:37: Volume: Monse nn IV (ANES) 00 1,000, 1000 mL Start date: 02/21/21 12:37:00 CDT, Stop date: 02/21/21 13:37:00 CDT Lactated 2020-0 No Route: IV, [facility] Ringers 6-07 Total l Injection 17:37: Volume: M[place] nn IV (ANES) 00 1,000, 1000 mL Start date: 02/21/21 12:37:00 CDT, Stop date: 02/21/21 13:37:00 CDT Lactated 2020-0 No Route: IV, [facility] Ringers 6-07 Total l Injection 17:37: Volume: [place] nn IV (ANES) 00 1,000, 1000 mL Start date: 02/21/21 12:37:00 CDT, Stop date: 02/21/21 13:37:00 CDT 72 HR 0 No 1 patch, [facility] Scopolamine 6-07 Route: l 0.0139 16:00: TOP, Drug Ben[place] n MG/HR 00 Form: Transdermal ERFILM, Patch Dosing Weight 75.455, kg, PRE OP, Start date: 02/21/21 11:00:00 CDT, Duration: 30 day, Stop date: 03/23/21 10:59:00 CDT 72 HR 2020-0 No 1 patch, [facility] Scopolamine 6-07 Route: l 0.0139 16:00: TOP, Drug [place] n MG/HR 00 Form: Transdermal ERFILM, Patch Dosing Weight 75.455, kg, PRE OP, Start date: 02/21/21 11:00:00 CDT, Duration: 30 day, Stop date: 03/23/21 10:59:00 CDT 72 HR 2020-0 No 1 patch, [facility] Scopolamine 6-07 Route: l 0.0139 16:00: TOP, Drug [place] n MG/HR 00 Form: Transdermal ERFILM, Patch Dosing Weight 75.455, kg, PRE OP, Start date: 02/21/21 11:00:00 CDT, Duration: 30 day, Stop date: 03/23/21 10:59:00 CDT 72 HR 2020-0 No 1 patch, [facility] Scopolamine 6-07 Route: l 0.0139 16:00: TOP, Drug [place] MG/HR 00 Form: Transdermal ERFILM, Patch Dosing Weight 75.455, kg, PRE OP, Start date: 02/21/21 11:00:00 CDT, Duration: 30 day, Stop date: 03/23/21 10:59:00 CDT 72 HR 2020-0 No 1 patch, [facility] Scopolamine 6-07 Route: l 0.0139 16:00: TOP, Drug [place] n MG/HR 00 Form: Transdermal ERFILM, Patch Dosing Weight 75.455, kg, PRE OP, Start date: 02/21/21 11:00:00 CDT, Duration: 30 day, Stop date: 03/23/21 10:59:00 CDT 72 HR 2020-0 No 1 patch, [facility] Scopolamine 6-07 Route: l 0.0139 16:00: TOP, Drug Ben[place] n MG/HR 00 Form: Transdermal ERFILM, Patch Dosing Weight 75.455, kg, PRE OP, Start date: 02/21/21 11:00:00 CDT, Duration: 30 day, Stop date: 03/23/21 10:59:00 CDT 72 HR 2020-0 No 1 patch, [facility] Scopolamine 6-07 Route: [...] sodium, 6-07 SUB-Q, l porcine 15:44: ONCE, [place] 2500 UNT/ML 00 Dosing Injectable Weight Solution 75.455, kg, Start date: 02/21/21 10:44:00 CDT, Stop date: 02/21/21 10:44:00 CDT heparin No Route: [facility] sodium, 6-07 SUB-Q, l porcine 15:44: ONCE, [place] 2500 UNT/ML 00 Dosing Injectable Weight Solution 75.455, kg, Start date: 02/21/21 10:44:00 CDT, Stop date: 02/21/21 10:44:00 CDT heparin No Route: [facility] sodium, 6-07 SUB-Q, l porcine 15:44: ONCE, [place] 2500 UNT/ML 00 Dosing Injectable Weight Solution 75.455, kg, Start date: 02/21/21 10:44:00 CDT, Stop date: 02/21/21 10:44:00 CDT heparin 2020-0 No Route: [facility] sodium, 6-07 SUB-Q, l porcine 15:44: ONCE, [place] 2500 UNT/ML 00 Dosing Injectable Weight Solution 75.455, kg, Start date: 02/21/21 10:44:00 CDT, Stop date: 02/21/21 10:44:00 CDT heparin 2020-0 No Route: [facility] sodium, 6-07 SUB-Q, l porcine 15:44: ONCE, [place] 2500 UNT/ML 00 Dosing Injectable Weight Solution 75.455, kg, Start date: 02/21/21 10:44:00 CDT, Stop date: 02/21/21 10:44:00 CDT heparin 2020-0 No Route: [facility] sodium, 6-07 SUB-Q, l porcine 15:44: ONCE, [place] 2500 UNT/ML 00 Dosing Injectable Weight Solution 75.455, kg, Start date: 02/21/21 10:44:00 CDT, Stop date: 02/21/21 10:44:00 CDT Calcium 2020-0 No 1,000 mL, [facility] Chloride 6-07 Rate: 75 l 0.0014 15:23: ml/hr, [place] MEQ/ML / 00 Infuse Potassium over: 13.3 [...] 6-07 Rate: 75 l 0.0014 15:23: ml/hr, [place] MEQ/ML / 00 Infuse Potassium over: 13.3 Chloride hr, Route: 0.004 IV, Dosing MEQ/ML / Weight Sodium 75.455 kg, Chloride Total 0.103 Volume: MEQ/ML / 1,000, Sodium Start Lactate date: 0.028 02/21/21 MEQ/ML 10:23:00 Injectable CDT, Solution Duration: 1 day, Stop date: 02/22/21 10:22:00 CDT, BSA: 1.8 m2, 0 Calcium 2021-0 No 1,000 mL, [facility] Chloride 6-07 Rate: 75 l 0.0014 15:23: ml/hr, [place] MEQ/ML / 00 Infuse Potassium over: 13.3 Chloride hr, Route: 0.004 IV, Dosing MEQ/ML / Weight Sodium 75.455 kg, Chloride Total 0.103 Volume: MEQ/ML / 1,000, Sodium Start Lactate date: 0.028 21 MEQ/ML 10:23:00 Injectable CDT, Solution Duration: 1 day, Stop date: 02/22/21 10:22:00 CDT, BSA: 1.8 m2, 0 Calcium 2021-0 No 1,000 mL, [facility] Chloride 6-07 Rate: 75 l 0.0014 15:23: ml/hr, [place] MEQ/ML / 00 Infuse Potassium over: 13.3 Chloride hr, Route: 0.004 IV, Dosing MEQ/ML / Weight Sodium 75.455 kg, Chloride Total 0.103 Volume: MEQ/ML / 1,000, Sodium Start Lactate date: 0.028 21 MEQ/ML 10:23:00 Injectable CDT, Solution Duration: 1 day, Stop date: 02/22/21 10:22:00 CDT, BSA: 1.8 m2, 0 Calcium 2021-0 No 1,000 mL, [facility] Chloride 6-07 Rate: 75 l 0.0014 15:23: ml/hr, [place] MEQ/ML / 00 Infuse Potassium over: 13.3 Chloride hr, Route: 0.004 IV, Dosing MEQ/ML / Weight Sodium 75.455 kg, Chloride Total 0.103 Volume: MEQ/ML / 1,000, Sodium Start Lactate date: 0.028 21 MEQ/ML 10:23:00 Injectable CDT, Solution Duration: 1 day, Stop date: 02/22/21 10:22:00 CDT, BSA: 1.8 m2, 0 Calcium 2021-0 No 1,000 mL, [facility] Chloride 6-07 [...] 10:22:00 CDT, BSA: 1.8 m2, 0 Calcium 2021-0 No 1,000 mL, [facility] Chloride 6-07 Rate: 75 l 0.0014 15:23: ml/hr, [place] MEQ/ML / 00 Infuse Potassium over: 13.3 [...] 6-07 Rate: 75 l 0.0014 15:23: ml/hr, [place] MEQ/ML / 00 Infuse Potassium over: 13.3 Chloride hr, Route: 0.004 IV, Dosing MEQ/ML / Weight Sodium 75.455 kg, Chloride Total 0.103 Volume: MEQ/ML / 1,000, Sodium Start Lactate date: 0.028 02/21/21 MEQ/ML 10:23:00 Injectable CDT, Solution Duration: 1 day, Stop date: 02/22/21 10:22:00 CDT, BSA: 1.8 m2, 0 acetaminoph 1-0 Yes [facility] en-codeine 6-07 [...] mg 00:00: [place] tablet [facility] acetaminoph 2020-0 Yes Un[facility] s en-codeine 6-07 ity of 300-30 mg 00:00: [place] tablet [facility] acetaminoph 2020-0 Yes Un[facility] s en-codeine 6-07 ity of 300-30 mg 00:00: [place] tablet [facility] acetaminoph 2020-0 Yes Un[facility] s en-codeine 6-07 ity of 300-30 mg 00:00: [place] tablet [facility] acetaminoph 2020-0 Yes Univer s en-codeine 6-07 ity of 300-30 mg 00:00: [place] tablet [facility] acetaminoph 2020-0 Yes Univer s en-codeine 6-07 ity of 300-30 mg 00:00: [place] tablet [facility] acetaminoph 2020-0 Yes Univer s en-codeine 6-07 ity of 300-30 mg 00:00: [place] tablet [facility] Trazodone 2020-0 Yes 100 mg, [facility] 6-03 PO, l 19:16: Bedtime, 0 [place] 00 Refill(s) Trazodone 0 Yes 100 mg, [facility] 6-03 PO, l 19:16: Bedtime, 0 [place] 00 Refill(s) Trazodone 0 Yes 100 mg, [facility] 6-03 PO, l 19:16: Bedtime, 0 [place] 00 Refill(s) Trazodone 2020-0 Yes 100 mg, [facility] 6-03 PO, l 19:16: Bedtime, 0 [place] 00 Refill(s) Trazodone 2020-0 Yes 100 mg, [facility] 6-03 PO, l 19:16: Bedtime, 0 [place] 00 Refill(s) Trazodone 2020-0 Yes 100 mg, [facility] 6-03 PO, l 19:16: Bedtime, 0 [place] 00 Refill(s) Trazodone 2020-0 Yes 100 mg, [facility] 6-03 PO, l 19:16: Bedtime, 0 [place] 00 Refill(s) Trazodone Yes 100 mg, [facility] 6-03 PO, l 19:16: Bedtime, 0 [place] 00 Refill(s) Hydrochloro Yes 1 tab, PO, [facility] thiazide 25 6-03 Daily, l MG / 19:15: NEEDED FOR [place] Triamterene 00 LEG 37.5 MG SWELING, 0 Oral Tablet Refill(s) Hydrochloro Yes 1 tab, PO, [facility] thiazide 25 6-03 Daily, l MG / 19:15: NEEDED FOR [place] Triamterene 00 LEG 37.5 MG SWELING, 0 Oral Tablet Refill(s) Hydrochloro Yes 1 tab, PO, [facility] thiazide 25 6-03 Daily, l MG / 19:15: NEEDED FOR [place] Triamterene 00 LEG 37.5 MG SWELING, 0 Oral Tablet Refill(s) Hydrochloro Yes 1 tab, PO, [facility] thiazide 25 6-03 Daily, l MG / 19:15: NEEDED FOR [place] Triamterene 00 LEG 37.5 MG SWELING, 0 Oral Tablet Refill(s) Hydrochloro 0 Yes 1 tab, PO, [facility] thiazide 25 6-03 Daily, l MG / 19:15: NEEDED FOR [place] Triamterene 00 LEG 37.5 MG SWELING, 0 Oral Tablet Refill(s) Hydrochloro 0 Yes 1 tab, PO, [facility] thiazide 25 6-03 Daily, l MG / 19:15: NEEDED FOR [place] Triamterene 00 LEG 37.5 MG SWELING, 0 Oral Tablet Refill(s) Hydrochloro 0 Yes 1 tab, PO, [facility] thiazide 25 6-03 Daily, l MG / 19:15: NEEDED FOR [place] Triamterene 00 LEG 37.5 MG SWELING, 0 Oral Tablet Refill(s) Hydrochloro 0 Yes 1 tab, PO, [facility] thiazide 25 6-03 Daily, l MG / 19:15: NEEDED FOR [place] Triamterene 00 LEG 37.5 MG SWELING, 0 Oral Tablet Refill(s) clopidogrel 0 Yes 75 mg, PO, [facility] 6-03 0 l 19:13: Refill(s) [place] 00 clopidogrel 2020-0 Yes 75 mg, PO, [...] 6-03 Daily, 0 l 19:12: Refill(s) Thyroxine 2021-0 Yes 50 [facility] 6-03 microgram, l 19:11: PO, Daily, [place] 0 Refill(s) Lisinopril 0 Yes 20 mg, PO, M [facility] 6- Daily, 0 l 19:11: Refill(s) Thyroxine Yes 50 [facility] 6-03 microgram, l 19:11: PO, Daily, [place] 00 0 Refill(s) Lisinopril 0 Yes 20 mg, PO, M [facility] 6-03 Daily, 0 l 19:11: Refill(s) Thyroxine Yes 50 [facility] 6-03 microgram, l 19:11: PO, Daily, [place] 00 0 Refill(s) Lisinopril 0 Yes 20 mg, PO, M [facility] 6- Daily, 0 l 19:11: Refill(s) Thyroxine Yes 50 [facility] 6-03 microgram, l 19:11: PO, Daily, [place] 00 0 Refill(s) Lisinopril Yes 20 mg, PO, M [facility] 6-03 Daily, 0 l 19:11: Refill(s) Thyroxine Yes 50 [facility] 6-03 microgram, l 19:11: PO, Daily, [place] 00 0 Refill(s) Lisinopril Yes 20 mg, PO, M [facility] 6- Daily, 0 l 19:11: Refill(s) Thyroxine Yes 50 [facility] 6-03 microgram, l 19:11: PO, Daily, [place] 00 0 Refill(s) Lisinopril 0 Yes 20 mg, PO, M [facility] 6-03 Daily, 0 l 19:11: Refill(s) Thyroxine Yes 50 [facility] 6-03 microgram, l 19:11: PO, Daily, [place] 00 0 Refill(s) Lisinopril 0 Yes 20 mg, PO, M [facility] 6-03 Daily, 0 l 19:11: Refill(s) Thyroxine Yes 50 [facility] 6-03 microgram, l 19:11: PO, Daily, [place] 00 0 Refill(s) Lisinopril Yes 20 mg, PO, M [facility] 6-03 Daily, 0 l 19:11: Refill(s) Metformin 0 Yes 500 mg, [facility] 6-03 PO, BID, 0 l 19:10: Refill(s) Pravastatin Yes 10 mg, PO, [facility] 6-03 Bedtime, # l 19:10: 30 tab, 0 [place] 00 Refill(s) Metformin 0 Yes 500 mg, [facility] 6-03 PO, BID, 0 l 19:10: Refill(s) Pravastatin Yes 10 mg, PO, [facility] 6-03 Bedtime, # l 19:10: 30 tab, 0 [place] 00 Refill(s) Metformin 0 Yes 500 mg, [facility] 6-03 PO, BID, 0 l 19:10: Refill(s) Pravastatin 0 Yes 10 mg, PO, [facility] 6-03 Bedtime, # l 19:10: 30 tab, 0 [place] 00 Refill(s) Metformin 0 Yes 500 mg, [facility] 6-03 PO, BID, 0 l 19:10: Refill(s) Pravastatin 0 Yes 10 mg, PO, [facility] 6-03 Bedtime, # l 19:10: 30 tab, 0 [place] 00 Refill(s) Metformin 0 Yes 500 mg, [facility] 6-03 PO, BID, 0 l 19:10: Refill(s) Pravastatin 0 Yes 10 mg, PO, [facility] 6-03 Bedtime, # l 19:10: 30 tab, 0 [place] 00 Refill(s) Metformin 0 Yes 500 mg, [facility] 6-03 PO, BID, 0 l 19:10: Refill(s) Pravastatin 0 Yes 10 mg, PO, [facility] 6-03 Bedtime, # l 19:10: 30 tab, 0 [place] 00 Refill(s) Metformin 0 Yes 500 mg, [facility] 6-03 PO, BID, 0 l 19:10: Refill(s) Pravastatin 1-0 Yes 10 mg, PO, [facility] 6-03 Bedtime, # l 19:10: 30 tab, 0 [place] 00 Refill(s) Metformin 2020-0 Yes 500 mg, [facility] 6-03 PO, BID, 0 l 19:10: Refill(s) [place] 00 Pravastatin 2021-0 Yes 10 mg, PO, [facility] 6-03 Bedtime, # l 19:10: 30 tab, 0 Refill(s) hydrOXYzine 1-0 Yes [id number] 25mg Take 1 [facility] 25 mg 5-24 tablet by ity of tablet 00:00: mouth [place] 00 every 6 Medical (six) Branch hours as needed for Itching. triamcinolo 2021-0 Yes [id number] Apply to [facility] ne 5-24 area(s) 2 ity of acetonide 00:00: (two) [place] 0.1 % cream 00 times Medical daily. Branch hydrOXYzine 2020-0 Yes [id number] 25mg Take 1 [facility] 25 mg 5-24 tablet by ity of tablet 00:00: mouth [place] 00 every 6 Medical (six) Branch hours as needed for Itching. triamcinolo 2021-0 Yes [id number] Apply to [facility] ne 5-24 area(s) 2 ity of acetonide 00:00: (two) [place] 0.1 % cream 00 times Medical daily. Branch hydrOXYzine 1-0 Yes [id number] 25mg Take 1 [facility] 25 mg 5-24 tablet by ity of tablet 00:00: mouth [place] 00 every 6 Medical (six) Branch hours as needed for Itching. triamcinolo 2021-0 Yes [id number] Apply to [facility] ne 5-24 area(s) 2 ity of acetonide 00:00: (two) [place] 0.1 % cream 00 times Medical daily. Branch hydrOXYzine 2021-0 Yes [id number] 25mg Take 1 [facility] 25 mg 5-24 tablet by ity of tablet 00:00: mouth [place] 00 every 6 Medical (six) Branch hours as needed for Itching. triamcinolo 2021-0 Yes [id number] Apply to [facility] ne 5-24 area(s) 2 ity of acetonide 00:00: (two) [place] 0.1 % cream 00 times Medical daily. Branch hydrOXYzine 2021-0 Yes [id number] 25mg Take 1 [facility] 25 mg 5-24 tablet by ity of tablet 00:00: mouth [place] 00 every 6 Medical (six) Branch hours as needed for Itching. triamcinolo 2021-0 Yes [id number] Apply to [facility] ne 5-24 area(s) 2 ity of acetonide 00:00: (two) [place] 0.1 % cream 00 times Medical daily. Branch hydrOXYzine 2021-0 Yes [id number] 25mg Take 1 [facility] 25 mg 5-24 tablet by ity of tablet 00:00: mouth [place] 00 every 6 Medical (six) Branch hours as needed for Itching. triamcinolo 2021-0 Yes [id number] Apply to [facility] ne 5-24 area(s) 2 ity of acetonide 00:00: (two) [place] 0.1 % cream 00 times Medical daily. Branch hydrOXYzine 2021-0 Yes [id number] 25mg Take 1 [facility] 25 mg 5-24 tablet by ity of tablet 00:00: mouth [place] 00 every 6 Medical (six) Branch hours as needed for Itching. triamcinolo 2021-0 Yes [id number] Apply to [facility] ne 5-24 area(s) 2 ity of acetonide 00:00: (two) [place] 0.1 % cream 00 times Medical daily. Branch hydrOXYzine 2021-0 Yes [id number] 25mg Take 1 [facility] 25 mg 5-24 tablet by ity of tablet 00:00: mouth [place] 00 every 6 Medical (six) Branch hours as needed for Itching. triamcinolo 2021-0 Yes [id number] Apply to [facility] ne 5-24 area(s) 2 ity of acetonide 00:00: (two) [place] 0.1 % cream 00 times Medical daily. Branch hydrOXYzine 2021-0 Yes [id number] 25mg Take 1 [facility] 25 mg 5-24 tablet by ity of tablet 00:00: mouth [place] 00 every 6 Medical (six) Branch hours as needed for Itching. triamcinolo 2021-0 Yes [id number] Apply to [facility] ne 5-24 area(s) 2 ity of acetonide 00:00: (two) [place] 0.1 % cream 00 times Medical daily. Branch hydrOXYzine 2021-0 Yes [id number] 25mg Take 1 [facility] 25 mg 5-24 tablet by ity of tablet 00:00: mouth [place] 00 every 6 Medical (six) Branch hours as needed for Itching. triamcinolo 2021-0 Yes [id number] Apply to [facility] ne 5-24 area(s) 2 ity of acetonide 00:00: (two) [place] 0.1 % cream 00 times Medical daily. Branch hydrOXYzine 2021-0 Yes [id number] 25mg Take 1 [facility] 25 mg 5-24 tablet by ity of tablet 00:00: mouth [place] 00 every 6 Medical (six) Branch hours as needed for Itching. triamcinolo 2021-0 Yes [id number] Apply to [facility] ne 5-24 area(s) 2 ity of acetonide 00:00: (two) [place] 0.1 % cream 00 times Medical daily. Branch hydrOXYzine 1-0 Yes [id number] 25mg Take 1 [facility] 25 mg 5-24 tablet by ity of tablet 00:00: mouth [place] 00 every 6 Medical (six) Branch hours as needed for Itching. triamcinolo 2021-0 Yes [id number] Apply to [facility] ne 5-24 area(s) 2 ity of acetonide 00:00: (two) [place] 0.1 % cream 00 times Medical daily. Branch hydrOXYzine 1-0 Yes [id number] 25mg Take 1 [facility] 25 mg 5-24 tablet by ity of tablet 00:00: mouth [place] 00 every 6 Medical (six) Branch hours as needed for Itching. triamcinolo 2021-0 Yes [id number] Apply to [facility] ne 5-24 area(s) 2 ity of acetonide 00:00: (two) [place] 0.1 % cream 00 times Medical daily. Branch hydrOXYzine 2021-0 Yes [id number] 25mg Take 1 [facility] 25 mg 5-24 tablet by ity of tablet 00:00: mouth [place] 00 every 6 Medical (six) Branch hours as needed for Itching. triamcinolo 2021-0 Yes [id number] Apply to [facility] ne 5-24 area(s) 2 ity of acetonide 00:00: (two) [place] 0.1 % cream 00 times Medical daily. Branch hydrOXYzine 2021-0 Yes [id number] 25mg Take 1 [facility] 25 mg 5-24 tablet by ity of tablet 00:00: mouth [place] 00 every 6 Medical (six) Branch hours as needed for Itching. triamcinolo 2021-0 Yes [id number] Apply to [facility] ne 5-24 area(s) 2 ity of acetonide 00:00: (two) [place] 0.1 % cream 00 times Medical daily. Branch hydrOXYzine 2020-0 Yes [id number] 25mg Take 1 [facility] 25 mg 5-24 tablet by ity of tablet 00:00: mouth [place] 00 every 6 Medical (six) Branch hours as needed for Itching. triamcinolo 1-0 Yes [id number] Apply to [facility] ne 5-24 area(s) 2 ity of acetonide 00:00: (two) [place] 0.1 % cream 00 times Medical daily. Branch hydrOXYzine 2020-0 Yes [id number] 25mg Take 1 [facility] 25 mg 5-24 tablet by ity of tablet 00:00: mouth [place] 00 every 6 Medical (six) Branch hours as needed for Itching. triamcinolo 2020-0 Yes [id number] Apply to [facility] ne 5-24 area(s) 2 ity of acetonide 00:00: (two) [place] 0.1 % cream 00 times Medical daily. Branch hydrOXYzine 2020-0 Yes [id number] 25mg Take 1 [facility] 25 mg 5-24 tablet by ity of tablet 00:00: mouth [place] 00 every 6 Medical (six) Branch hours as needed for Itching. triamcinolo 1-0 Yes [id number] Apply to [facility] ne 5-24 area(s) 2 ity of acetonide 00:00: (two) [place] 0.1 % cream 00 times Medical daily. Branch Magnesium 2020-0 Yes Take by Unive rs 250 mg Tab 5-21 mouth. ity of 22:05: [place] 48 Medical Branch vitamin B-6 2020-0 Yes 100mg Take 100 U nivers (VITAMIN 5-21 mg by ity of B-6) 100 mg 22:05: mouth [place] tablet 48 daily. Medical Branch CALCIUM 2020-0 Yes Take by [facility] CARBONATE/V 5-21 mouth. ity of ITAMIN D3 22:05: [place] (VITAMIN 48 Medical D-3 ORAL) Branch Magnesium 2020-0 Yes Take by Unive rs 250 mg Tab 5-21 mouth. ity of 22:05: [place] [address] Medical Branch vitamin B-6 Yes 100mg Take 100 U nivers (VITAMIN 5-21 mg by ity of B-6) 100 mg 22:05: mouth [place] tablet 48 daily. Medical Branch CALCIUM Yes Take by [facility] CARBONATE/V 5-21 mouth. ity of ITAMIN D3 22:05: [place] (VITAMIN 48 Medical D-3 ORAL) Branch Magnesium Yes Take by Unive rs 250 mg Tab 5-21 mouth. ity of 22:05: [place] [address] Medical Branch vitamin B-6 Yes 100mg Take 100 U nivers (VITAMIN 5-21 mg by ity of B-6) 100 mg 22:05: mouth [place] tablet 48 daily. Medical Branch CALCIUM Yes Take by [facility] CARBONATE/V 5-21 mouth. ity of ITAMIN D3 22:05: [place] (VITAMIN 48 Medical D-3 ORAL) Branch Magnesium Yes Take by Unive rs 250 mg Tab 5-21 mouth. ity of 22:05: [address] Branch vitamin B-6 Yes 100mg Take 100 U nivers (VITAMIN 5-21 mg by ity of B-6) 100 mg 22:05: mouth [place] tablet 48 daily. Medical Branch CALCIUM Yes Take by [facility] CARBONATE/V 5-21 mouth. ity of ITAMIN D3 22:05: [place] (VITAMIN 48 Medical D-3 ORAL) Branch Magnesium Yes Take by Unive rs 250 mg Tab 5-21 mouth. ity of 22:05: [address] Branch vitamin B-6 Yes 100mg Take 100 U nivers (VITAMIN 5-21 mg by ity of B-6) 100 mg 22:05: mouth [place] tablet 48 daily. Medical Branch CALCIUM Yes Take by [facility] CARBONATE/V 5-21 mouth. ity of ITAMIN D3 22:05: [place] (VITAMIN 48 Medical D-3 ORAL) Branch Magnesium Yes Take by Unive rs 250 mg Tab 5-21 mouth. ity of 22:05: [address] Branch vitamin B-6 Yes 100mg Take 100 U nivers (VITAMIN 5-21 mg by ity of B-6) 100 mg 22:05: mouth [place] tablet 48 daily. Medical Branch CALCIUM Yes Take by [facility] CARBONATE/V 5-21 mouth. ity of ITAMIN D3 22:05: [place] (VITAMIN 48 Medical D-3 ORAL) Branch Magnesium Yes Take by Un[facility] rs 250 mg Tab 5-21 mouth. ity of 22:05: [place] [address] Medical Branch vitamin B-6 Yes 100mg Take 100 U nivers (VITAMIN 5-21 mg by ity of B-6) 100 mg 22:05: mouth [place] tablet 48 daily. Medical Branch CALCIUM Yes Take by [facility] CARBONATE/V 5-21 mouth. ity of ITAMIN D3 22:05: [place] (VITAMIN 48 Medical D-3 ORAL) Branch Magnesium Yes Take by Un[facility] rs 250 mg Tab 5-21 mouth. ity of 22:05: [place] [address] Medical Branch vitamin B-6 Yes 100mg Take 100 U nivers (VITAMIN 5-21 mg by ity of B-6) 100 mg 22:05: mouth [place] tablet 48 daily. Medical Branch CALCIUM Yes Take by [facility] CARBONATE/V 5-21 mouth. ity of ITAMIN D3 22:05: [place] (VITAMIN 48 Medical D-3 ORAL) Branch Magnesium Yes Take by Un[facility] rs 250 mg Tab 5-21 mouth. ity of 22:05: [place] [address] Medical Branch vitamin B-6 Yes 100mg Take 100 U nivers (VITAMIN 5-21 mg by ity of B-6) 100 mg 22:05: mouth [place] tablet 48 daily. Medical Branch CALCIUM Yes Take by [facility] CARBONATE/V 5-21 mouth. ity of ITAMIN D3 22:05: [place] (VITAMIN 48 Medical D-3 ORAL) Branch Magnesium Yes Take by Un[facility] rs 250 mg Tab 5-21 mouth. ity of 22:05: [place] [address] Medical Branch vitamin B-6 Yes 100mg Take 100 U nivers (VITAMIN 5-21 mg by ity of B-6) 100 mg 22:05: mouth [place] tablet 48 daily. Medical Branch CALCIUM Yes Take by [facility] CARBONATE/V 5-21 mouth. ity of ITAMIN D3 22:05: [place] (VITAMIN 48 Medical D-3 ORAL) Branch Magnesium Yes Take by Un[facility] rs 250 mg Tab 5-21 mouth. ity of 22:05: [place] [address] Medical Branch vitamin B-6 Yes 100mg Take 100 U nivers (VITAMIN 5-21 mg by ity of B-6) 100 mg 22:05: mouth [place] tablet 48 daily. Medical Branch CALCIUM Yes Take by [facility] CARBONATE/V 5-21 mouth. ity of ITAMIN D3 22:05: [place] (VITAMIN 48 Medical D-3 ORAL) Branch Magnesium Yes Take by Un[facility] rs 250 mg Tab 5-21 mouth. ity of 22:05: [place] [address] Medical Branch vitamin B-6 Yes 100mg Take 100 U nivers (VITAMIN 5-21 mg by ity of B-6) 100 mg 22:05: mouth [place] tablet 48 daily. Medical Branch CALCIUM Yes Take by [facility] CARBONATE/V 5-21 mouth. ity of ITAMIN D3 22:05: [place] (VITAMIN 48 Medical D-3 ORAL) Branch Magnesium Yes Take by Un[facility] rs 250 mg Tab 5-21 mouth. ity of 22:05: [place] [address] Medical Branch vitamin B-6 Yes 100mg Take 100 U nivers (VITAMIN 5-21 mg by ity of B-6) 100 mg 22:05: mouth [place] tablet 48 daily. Medical Branch CALCIUM Yes Take by [facility] CARBONATE/V 5-21 mouth. ity of ITAMIN D3 22:05: [place] (VITAMIN 48 Medical D-3 ORAL) Branch Magnesium Yes Take by Un[facility] rs 250 mg Tab 5-21 mouth. ity of 22:05: [place] [address] Medical Branch vitamin B-6 Yes 100mg Take 100 U nivers (VITAMIN 5-21 mg by ity of B-6) 100 mg 22:05: mouth [place] tablet 48 daily. Medical Branch CALCIUM Yes Take by [facility] CARBONATE/V 5-21 mouth. ity of ITAMIN D3 22:05: [place] (VITAMIN 48 Medical D-3 ORAL) Branch Magnesium Yes Take by Un[facility] rs 250 mg Tab 5-21 mouth. ity of 22:05: [place] [address] Medical Branch vitamin B-6 Yes 100mg Take 100 U nivers (VITAMIN 5-21 mg by ity of B-6) 100 mg 22:05: mouth [place] tablet 48 daily. Medical Branch CALCIUM 0 Yes Take by [facility] CARBONATE/V 5-21 mouth. ity of ITAMIN D3 22:05: [place] (VITAMIN 48 Medical D-3 ORAL) Branch alcaftadine Yes Place in [facility] [place] (LASTACAFT) 5-21 each eye. ity of 0.25 % Drop 22:05: [place] [address] Medical Branch CY[address] Yes Place in [facility] [place] (RESTASIS 5-21 each eye. ity of OPHTHALMIC) 22:05: [place] [address] Medical Branch vitamin E Yes 1000U Take 1,000 U nivers 1,000 unit 5-21 Units by ity o f capsule 22:05: mouth [place] 47 daily. Medical Branch alcaftadine Yes Place in [facility] [place] (LASTACAFT) 5-21 each eye. ity of 0.25 % Drop 22:05: [place] [address] Medical Branch CYCL[address] Yes Place in [facility] [place] E (RESTASIS 5-21 each eye. ity of OPHTHALMIC) 22:05: [place] [address] Medical Branch vitamin E Yes 1000U Take 1,000 U nivers 1,000 unit 5-21 Units by ity o f capsule 22:05: mouth [place] 47 daily. Medical Branch alcaftadine Yes Place in [facility] [place] (LASTACAFT) 5-21 each eye. ity of 0.25 % Drop 22:05: [place] [address] [facility] CYCLOSPORIN Yes Place in [place] E (RESTASIS 5-21 each eye. ity of OPHTHALMIC) 22:05: [place] [address] [facility] vitamin E Yes 1000U Take 1,000 U nivers 1,000 unit 5-21 Units by ity o f capsule 22:05: mouth [place] 47 daily. [facility] alcaftadine [address] in [place] (LASTACAFT) 5-21 each eye. ity of 0.25 % Drop 22:05: [place] [address] [facility] CYCLOSPORIN [address] in [place] E (RESTASIS 5-21 each eye. ity of OPHTHALMIC) 22:05: [place] [address] [facility] vitamin E 0 Yes 1000U Take 1,000 U nivers 1,000 unit 5-21 Units by ity o f capsule 22:05: mouth [place] [address] daily. [facility] alcaftadine 2020-[address] in [place] (LASTACAFT) 5-21 each eye. ity of 0.25 % Drop 22:05: [place] [address] [facility] CYCLOSPORIN 2020-[address] in [place] E (RESTASIS 5-21 each eye. ity of OPHTHALMIC) 22:05: [place] [address] [facility] vitamin E 2020-0 Yes 1000U Take 1,000 U nivers 1,000 unit 5-21 Units by ity o f capsule 22:05: mouth [place] [address] daily. [facility] alcaftadine 2020-[address] in [place] (LASTACAFT) 5-21 each eye. ity of 0.25 % Drop 22:05: [place] [address] [facility] CYCLOSPORIN 2020-[address] in [place] E (RESTASIS 5-21 each eye. ity of OPHTHALMIC) 22:05: [place] [address] [facility] vitamin E 2020-0 Yes 1000U Take 1,000 U nivers 1,000 unit 5-21 Units by ity o f capsule 22:05: mouth [place] [address] daily. [facility] alcaftadine 2020-[address] [facility] [place] (LASTACAFT) 5-21 each eye. ity of 0.25 % Drop 22:05: [place] [address] [facility] CYCLOSPORIN 2020-[address] in [place] [facility] (RESTASIS 5-21 each eye. ity of OPHTHALMIC) 22:05: [place] [address] [facility] vitamin E 2020-0 Yes 1000U Take 1,000 U nivers 1,000 unit 5-21 Units by ity o f capsule 22:05: mouth [place] [address] daily. Medical Branch alcaftadine 2020-[address] in [place] (LASTACAFT) 5-21 each eye. ity of 0.25 % Drop 22:05: [place] [address] [facility] CYCLOSPORIN 2020-[address] in [place] [facility] (RESTASIS 5-21 each eye. ity of OPHTHALMIC) 22:05: [place] [address] [facility] vitamin E 2020-0 Yes 1000U Take 1,000 U nivers 1,000 unit 5-21 Units by ity o f capsule 22:05: mouth [place] [address] daily. Medical Branch alcaftadine 2020-[address] in [place] (LASTACAFT) 5-21 each eye. ity of 0.25 % Drop 22:05: [place] [address] [facility] CYCLOSPORIN 2020-[address] in [place] [facility] (RESTASIS 5-21 each eye. ity of OPHTHALMIC) 22:05: [place] [address] [facility] vitamin E 2020-0 Yes 1000U Take 1,000 U nivers 1,000 unit 5-21 Units by ity o f capsule 22:05: mouth [place] 47 daily. Medical Branch alcaftadine 2020-[address] in [place] (LASTACAFT) 5-21 each eye. ity of 0.25 % Drop 22:05: [place] [address] [facility] CYCLOSPORIN 2020-[address] in [place] (RESTASIS 5-21 each eye. ity of OPHTHALMIC) 22:05: [place] [address] [facility] vitamin E 2020-0 Yes 1000U Take 1,000 U nivers 1,000 unit 5-21 Units by ity o f capsule 22:05: mouth [place] [address] daily. Medical Branch alcaftadine 2020-[address] in [place] (LASTACAFT) 5-21 each eye. ity of 0.25 % Drop 22:05: [place] [address] [facility] CYCLOSPORIN 2020-[address] in [place] (RESTASIS 5-21 each eye. ity of OPHTHALMIC) 22:05: [place] [address] [facility] vitamin E 2020-0 Yes 1000U Take 1,000 U nivers 1,000 unit 5-21 Units by ity o f capsule 22:05: mouth [place] [address] daily. Medical Branch alcaftadine 2020-[address] in [place] (LASTACAFT) 5-21 each eye. ity of 0.25 % Drop 22:05: [place] [address] [facility] CYCLOSPORIN 2020-[address] in [place] (RESTASIS 5-21 each eye. ity of OPHTHALMIC) 22:05: [place] [address] [facility] vitamin E 2020-0 Yes 1000U Take 1,000 U nivers 1,000 unit 5-21 Units by ity o f capsule 22:05: mouth [place] 47 daily. Medical Branch alcaftadine 2020-[address] in [place] (LASTACAFT) 5-21 each eye. ity of 0.25 % Drop 22:05: [place] [address] [facility] CYCLOSPORIN 2020-[address] in [place] (RESTASIS 5-21 each eye. ity of OPHTHALMIC) 22:05: [place] [address] [facility] vitamin E Yes 1000U Take 1,000 U nivers 1,000 unit 5-21 Units by ity o f capsule 22:05: mouth [place] 47 daily. Medical Branch alcaftadine [address] in [place] (LASTACAFT) 5-21 each eye. ity of 0.25 % Drop 22:05: [place] [address] [facility] CYCLOSPORIN Yes Place in [place] [facility] (RESTASIS 5-21 each eye. ity of OPHTHALMIC) 22:05: [place] [address] [facility] vitamin E Yes 1000U Take 1,000 U nivers 1,000 unit 5-21 Units by ity o f capsule 22:05: mouth [place] 47 daily. Medical Branch alcaftadine [address] in [place] (LASTACAFT) 5-21 each eye. ity of 0.25 % Drop 22:05: [place] [address] [facility] CYCLOSPORIN Yes Place in [place] [facility] (RESTASIS 5-21 each eye. ity of OPHTHALMIC) 22:05: [place] [address] [facility] vitamin E Yes 1000U Take 1,000 U nivers 1,000 unit 5-21 Units by ity o f capsule 22:05: mouth [place] 47 daily. Medical Branch Magnesium Yes Take by [facility] 250 mg Tab 5-21 mouth. ity of 17:05: [place] [address] [facility] Branch vitamin B-6 Yes 100mg Take 100 U nivers (VITAMIN 5-21 mg by ity of B-6) 100 mg 17:05: mouth [place] tablet 48 daily. Medical Branch CALCIUM 0 Yes Take by [facility] CARBONATE/V 5-21 mouth. ity of ITAMIN D3 17:05: [place] [address] Medical D-3 ORAL) Branch Magnesium 0 Yes Take by [facility] 250 mg Tab 5-21 mouth. ity of 17:05: [place] [address] [facility] Branch vitamin B-6 0 Yes 100mg Take 100 [facility] (VITAMIN 5-21 mg by ity of B-6) 100 mg 17:05: mouth [place] tablet 48 daily. Medical Branch CALCIUM 0 Yes Take by [facility] CARBONATE/V 5-21 mouth. ity of ITAMIN D3 17:05: [place] (VITAMIN 48 Medical D-3 ORAL) Branch Magnesium Yes Take by [facility] 250 mg Tab 5-21 mouth. ity of 17:05: [place] [address] [facility] Branch vitamin B-6 Yes 100mg Take 100 [facility] (VITAMIN 5-21 mg by ity of B-6) 100 mg 17:05: mouth [place] tablet 48 daily. Medical Branch CALCIUM Yes Take by [facility] CARBONATE/V 5-21 mouth. ity of ITAMIN D3 17:05: [place] (VITAMIN 48 Medical D-3 ORAL) Branch Magnesium Yes Take by [facility] 250 mg Tab 5-21 mouth. ity of 17:05: [place] [address] [facility] Branch vitamin B-6 Yes 100mg Take 100 U nivers (VITAMIN 5-21 mg by ity of B-6) 100 mg 17:05: mouth [place] tablet 48 daily. Medical Branch CALCIUM Yes Take by [facility] CARBONATE/V 5-21 mouth. ity of ITAMIN D3 17:05: [place] (VITAMIN 48 Medical D-3 ORAL) Branch Magnesium Yes Take by [facility] 250 mg Tab 5-21 mouth. ity of 17:05: [place] [address] [facility] Branch vitamin B-6 Yes 100mg Take 100 U [facility] (VITAMIN 5-21 mg by ity of B-6) 100 mg 17:05: mouth [place] tablet 48 daily. Medical Branch CALCIUM Yes Take by [facility] CARBONATE/V 5-21 mouth. ity of ITAMIN D3 17:05: [place] (VITAMIN 48 Medical D-3 ORAL) Branch Magnesium Yes Take by [facility] 250 mg Tab 5-21 mouth. ity of 17:05: [place] [address] [facility] Branch vitamin B-6 Yes 100mg Take 100 [facility] (VITAMIN 5-21 mg by ity of B-6) 100 mg 17:05: mouth [place] tablet 48 daily. Medical Branch CALCIUM Yes Take by [facility] CARBONATE/V 5-21 mouth. ity of ITAMIN D3 17:05: [place] (VITAMIN 48 Medical D-3 ORAL) Branch alcaftadine Yes Place [place] (LAST[place]FT) 5-21 each eye. ity of 0.25 % Drop 17:05: [place] [address] [facility] CYCLOSPORIN 202-[address] in [place] (RESTASIS 5-21 each eye. ity of OPHTHALMIC) 17:05: [place] [address] [facility] vitamin E 2020-0 Yes 1000U Take 1,000 U nivers 1,000 unit 5-21 Units by ity o f capsule 17:05: mouth [place] 47 daily. Medical Branch alcaftadine 2020-[address] in [place] (LASTACAFT) 5-21 each eye. ity of 0.25 % Drop 17:05: [place] [address] [facility] CYCLOSPORIN 2020-[address] in [place] (RESTASIS 5-21 each eye. ity of OPHTHALMIC) 17:05: [place] [address] [facility] vitamin E 2020-0 Yes 1000U Take 1,000 U nivers 1,000 unit 5-21 Units by ity o f capsule 17:05: mouth [place] 47 daily. Medical Branch alcaftadine 2020-[address] in [place] (LASTACAFT) 5-21 each eye. ity of 0.25 % Drop 17:05: [place] [address] [facility] CYCLOSPORIN 2020-[address] in [place] (RESTASIS 5-21 each eye. ity of OPHTHALMIC) 17:05: [place] [address] [facility] vitamin E 2020-0 Yes 1000U Take 1,000 U nivers 1,000 unit 5-21 Units by ity o f capsule 17:05: mouth [place] 47 daily. Medical Branch alcaftadine 2020-[address] in [place] (LASTACAFT) 5-21 each eye. ity of 0.25 % Drop 17:05: [place] [address] [facility] CYCLOSPORIN 2020-[address] in [place] (RESTASIS 5-21 each eye. ity of OPHTHALMIC) 17:05: [place] [address] [facility] vitamin E 2020-0 Yes 1000U Take 1,000 U nivers 1,000 unit 5-21 Units by ity o f capsule 17:05: mouth [place] 47 daily. Medical Branch alcaftadine 202-[address] in [place] (LASTACAFT) 5-21 each eye. ity of 0.25 % Drop 17:05: [place] [address] [facility] CYCLOSPORIN 202-[address] in [place] (RESTASIS 5-21 each eye. ity of OPHTHALMIC) 17:05: Medical Branch vitamin E Yes 1000U Take 1,000 U nivers 1,000 unit 5-21 Units by ity o f capsule 17:05: mouth daily. Medical Branch alcaftadine Yes Place in [place] (LASTACAFT) 5-21 each eye. ity of 0.25 % Drop 17:05: [facility] CYCLOSPORIN Yes Place in [place] (RESTASIS 5-21 each eye. ity of OPHTHALMIC) 17:05: Medical Branch vitamin E Yes 1000U Take 1,000 U nivers 1,000 unit 5-21 Units by ity o f capsule 17:05: mouth [place] [address] daily. Medical Branch lisinopriL Yes [id number] 10mg Take 0.5 [facility] 20 mg 5-21 tablets by ity of tablet 00:00: mouth [place] 00 daily. Medical Branch lisinopriL 0 Yes [id number] 10mg Take 0.5 [facility] 20 mg 5-21 tablets by ity of tablet 00:00: mouth [place] 00 daily. Medical Branch lisinopriL 0 Yes [id number] 10mg Take 0.5 [facility] 20 mg 5-21 tablets by ity of tablet 00:00: mouth [place] 00 daily. Medical Branch lisinopriL 0 Yes [id number] 10mg Take 0.5 [facility] 20 mg 5-21 tablets by ity of tablet 00:00: mouth [place] 00 daily. Medical Branch lisinopriL 0 Yes [id number] 10mg Take 0.5 [facility] 20 mg 5-21 tablets by ity of tablet 00:00: mouth [place] 00 daily. Medical Branch lisinopriL 0 Yes [id number] 10mg Take 0.5 [facility] 20 mg 5-21 tablets by ity of tablet 00:00: mouth [place] 00 daily. Medical Branch lisinopriL 0 Yes [id number] 10mg Take 0.5 [facility] 20 mg 5-21 tablets by ity of tablet 00:00: mouth [place] 00 daily. Medical Branch lisinopriL 0 2021- No [id number] 10mg Take 0.5 [facility] 20 mg 5-21 06-22 tablets by ity of tablet 00:00: 00:00 mouth [place] 00 :00 daily. Medical Branch lisinopriL 2020-0 1- No [id number] 10mg Take 0.5 [facility] 20 mg 5-21 06-22 tablets by ity of tablet 00:00: 00:00 mouth [place] 00 :00 daily. Medical Branch Blood-Gluco 2020-0 Yes [id number] Check [facility] se Meter 5-11 glucose ity of Kit 00:00: once daily [place] 00 before Medical breakfast; Branch ICD-10 code E11.9 blood sugar 2020-0 Yes [id number] Check [facility] diagnostic 5-11 glucose ity of (BLOOD 00:00: once daily [place] GLUCOSE 00 before Medical TEST) strip breakfast; Br anch ICD-10 code E11.9 Lancets 2020-0 Yes [id number] Check [facility] ers Misc 5-11 glucose ity of 00:00: once daily [place] 00 before Medical breakfast; Branch ICD-10 code E11.9 pravastatin 2020-0 Yes [id number] 10mg Take 1 [facility] 10 mg 5-11 [id number] tablet by ity of tablet 00:00: mouth [place] 00 every Medical other day. Branch metformin 2020-0 Yes [id number] 500mg Take 1 U nivers ER 500 mg 5-11 tablet by ity o f 24 hr 00:00: mouth 2 [place] tablet 00 (two) Medical times Branch daily with meals. Blood-Gluco 2020-0 Yes [id number] Check [facility] se Meter 5-11 glucose ity of Kit 00:00: once daily [place] 00 before Medical breakfast; Branch ICD-10 code E11.9 blood sugar 2020-0 Yes [id number] Check [facility] diagnostic 5-11 glucose ity of (BLOOD 00:00: once daily [place] GLUCOSE 00 before Medical TEST) strip breakfast; Br anch ICD-10 code E11.9 Lancets 2020-0 Yes [id number] Check [facility] ers Misc 5-11 glucose ity of 00:00: once daily [place] 00 before Medical breakfast; Branch ICD-10 code E11.9 pravastatin 2020-0 Yes [id number] 10mg Take 1 [facility] 10 mg 5-11 [id number] tablet by ity of tablet 00:00: mouth [place] 00 every Medical other day. Branch metformin 2020-0 Yes [id number] 500mg Take 1 U nivers ER 500 mg 5-11 tablet by ity o f 24 hr 00:00: mouth 2 [place] tablet 00 (two) Medical times Branch daily with meals. Blood-Gluco 2020-0 Yes [id number] Check [facility] se Meter 5-11 glucose ity of Kit 00:00: once daily [place] 00 before Medical breakfast; Branch ICD-10 code E11.9 blood sugar 2020-0 Yes [id number] Check [facility] diagnostic 5-11 glucose ity of (BLOOD 00:00: once daily [place] GLUCOSE 00 before Medical TEST) strip breakfast; Br anch ICD-10 code E11.9 Lancets 2020-0 Yes [id number] Check [facility] ers Misc 5-11 glucose ity of 00:00: once daily [place] 00 before Medical breakfast; Branch ICD-10 code E11.9 pravastatin 2020-0 Yes [id number] 10mg Take 1 [facility] 10 mg 5-11 [id number] tablet by ity of tablet 00:00: mouth [place] 00 every Medical other day. Branch metformin 2020-0 Yes [id number] 500mg Take 1 U nivers ER 500 mg 5-11 tablet by ity o f 24 hr 00:00: mouth 2 [place] tablet 00 (two) Medical times Branch daily with meals. Blood-Gluco 2020-0 Yes [id number] Check [facility] se Meter 5-11 glucose ity of Kit 00:00: once daily [place] 00 before Medical breakfast; Branch ICD-10 code E11.9 blood sugar 2020-0 Yes [id number] Check [facility] diagnostic 5-11 glucose ity of (BLOOD 00:00: once daily [place] GLUCOSE 00 before Medical TEST) strip breakfast; Br anch ICD-10 code E11.9 Lancets 2020-0 Yes [id number] Check [facility] ers Misc 5-11 glucose ity of 00:00: once daily [place] 00 before Medical breakfast; Branch ICD-10 code E11.9 pravastatin 2020-0 Yes [id number] 10mg Take 1 [facility] 10 mg 5-11 [id number] tablet by ity of tablet 00:00: mouth [place] 00 every Medical other day. Branch metformin 2020-0 Yes [id number] 500mg Take 1 U nivers ER 500 mg 5-11 tablet by ity o f 24 hr 00:00: mouth 2 [place] tablet 00 (two) Medical times Branch daily with meals. Blood-Gluco 2020-0 Yes [id number] Check [facility] se Meter 5-11 glucose ity of Kit 00:00: once daily [place] 00 before Medical breakfast; Branch ICD-10 code E11.9 blood sugar 2020-0 Yes [id number] Check [facility] diagnostic 5-11 glucose ity of (BLOOD 00:00: once daily [place] GLUCOSE 00 before Medical TEST) strip breakfast; Br anch ICD-10 code E11.9 Lancets 2020-0 Yes [id number] Check [facility] ers Misc 5-11 glucose ity of 00:00: once daily [place] 00 before Medical breakfast; Branch ICD-10 code E11.9 pravastatin 2020-0 Yes [id number] 10mg Take 1 [facility] 10 mg 5-11 [id number] tablet by ity of tablet 00:00: mouth [place] 00 every Medical other day. Branch metformin 2020-0 Yes [id number] 500mg Take 1 [facility] n[facility] ER 500 mg 5-11 tablet by ity o f 24 hr 00:00: mouth 2 [place] tablet 00 (two) Medical times Branch daily with meals. Blood-Gluco 2020-0 Yes [id number] Check [facility] se Meter 5-11 glucose ity of Kit 00:00: once daily [place] 00 before Medical breakfast; Branch ICD-10 code E11.9 blood sugar 2020-0 Yes [id number] Check [facility] diagnostic 5-11 glucose ity of (BLOOD 00:00: once daily [place] GLUCOSE 00 before Medical TEST) strip breakfast; Br anch ICD-10 code E11.9 Lancets 2020-0 Yes [id number] Check [facility] ers Misc 5-11 glucose ity of 00:00: once daily [place] 00 before Medical breakfast; Branch ICD-10 code E11.9 pravastatin 2020-0 Yes [id number] 10mg Take 1 [facility] 10 mg 5-11 [id number] tablet by ity of tablet 00:00: mouth [place] 00 every Medical other day. Branch metformin 2020-0 Yes [id number] 500mg Take 1 [facility] n[facility] ER 500 mg 5-11 tablet by ity o f 24 hr 00:00: mouth 2 [place] tablet 00 (two) Medical times Branch daily with meals. Blood-Gluco 2020-0 Yes [id number] Check [facility] se Meter 5-11 glucose ity of Kit 00:00: once daily [place] 00 before Medical breakfast; Branch ICD-10 code E11.9 blood sugar 2020-0 Yes [id number] Check [facility] diagnostic 5-11 glucose ity of (BLOOD 00:00: once daily [place] GLUCOSE 00 before Medical TEST) strip breakfast; Br anch ICD-10 code E11.9 Lancets 2020-0 Yes [id number] Check [facility] ers Misc 5-11 glucose ity of 00:00: once daily [place] 00 before Medical breakfast; Branch ICD-10 code E11.9 pravastatin 2020-0 Yes [id number] 10mg Take 1 [facility] 10 mg 5-11 [id number] tablet by ity of tablet 00:00: mouth [place] 00 every Medical other day. Branch metformin 2020- Yes [id number] 500mg Take 1 U nivers ER 500 mg 5-11 tablet by ity o f 24 hr 00:00: mouth 2 [place] tablet 00 (two) Medical times Branch daily with meals. Blood-Gluco Yes [id number] Check [facility] se Meter 5-11 glucose ity of Kit 00:00: once daily [place] 00 before Medical breakfast; Branch ICD-10 code E11.9 blood sugar Yes [id number] Check [facility] diagnostic 5-11 glucose ity of (BLOOD 00:00: once daily [place] GLUCOSE 00 before Medical TEST) strip breakfast; Br anch ICD-10 code E11.9 Lancets Yes [id number] Check [facility] ers Misc 5-11 glucose ity of 00:00: once daily [place] 00 before Medical breakfast; Branch ICD-10 code E11.9 pravastatin 2020-0 Yes [id number] 10mg Take 1 [facility] 10 mg 5-11 [id number] tablet by ity of tablet 00:00: mouth [place] 00 every Medical other day. Branch metformin 2020- Yes [id number] 500mg Take 1 U nivers ER 500 mg 5-11 tablet by ity o f 24 hr 00:00: mouth 2 [place] tablet 00 (two) Medical times Branch daily with meals. Blood-Gluco Yes [id number] Check [facility] se Meter 5-11 glucose ity of Kit 00:00: once daily [place] 00 before Medical breakfast; Branch ICD-10 code E11.9 blood sugar Yes [id number] Check [facility] diagnostic 5-11 glucose ity of (BLOOD 00:00: once daily [place] GLUCOSE 00 before Medical TEST) strip breakfast; Br anch ICD-10 code E11.9 Lancets Yes [id number] Check [facility] ers Misc 5-11 glucose ity of 00:00: once daily [place] 00 before Medical breakfast; Branch ICD-10 code E11.9 pravastatin 2020-0 Yes [id number] 10mg Take 1 [facility] 10 mg 5-11 [id number] tablet by ity of tablet 00:00: mouth [place] 00 every Medical other day. Branch metformin 2020-0 Yes [id number] 500mg Take 1 U nivers ER 500 mg 5-11 tablet by ity o f 24 hr 00:00: mouth 2 [place] tablet 00 (two) Medical times Branch daily with meals. Blood-Gluco 2020-0 Yes [id number] Check [facility] se Meter 5-11 glucose ity of Kit 00:00: once daily [place] 00 before Medical breakfast; Branch ICD-10 code E11.9 blood sugar 2020-0 Yes [id number] Check [facility] diagnostic 5-11 glucose ity of (BLOOD 00:00: once daily [place] GLUCOSE 00 before Medical TEST) strip breakfast; Br anch ICD-10 code E11.9 Lancets 2020-0 Yes [id number] Check [facility] ers Misc 5-11 glucose ity of 00:00: once daily [place] 00 before Medical breakfast; Branch ICD-10 code E11.9 pravastatin 2020-0 Yes [id number] 10mg Take 1 [facility] 10 mg 5-11 [id number] tablet by ity of tablet 00:00: mouth [place] 00 every Medical other day. Branch metformin 2020-0 Yes [id number] 500mg Take 1 [facility] nivers ER 500 mg 5-11 tablet by ity o f 24 hr 00:00: mouth 2 [place] tablet 00 (two) Medical times Branch daily with meals. Blood-Gluco 2020-0 Yes [id number] Check [facility] se Meter 5-11 glucose ity of Kit 00:00: once daily [place] 00 before Medical breakfast; Branch ICD-10 code E11.9 blood sugar 2020-0 Yes [id number] Check [facility] diagnostic 5-11 glucose ity of (BLOOD 00:00: once daily [place] GLUCOSE 00 before Medical TEST) strip breakfast; Br anch ICD-10 code E11.9 Lancets 2020-0 Yes [id number] Check [facility] ers Misc 5-11 glucose ity of 00:00: once daily [place] 00 before Medical breakfast; Branch ICD-10 code E11.9 pravastatin 2020-0 Yes [id number] 10mg Take 1 [facility] 10 mg 5-11 [id number] tablet by ity of tablet 00:00: mouth [place] 00 every Medical other day. Branch metformin 2020-0 Yes [id number] 500mg Take 1 [facility] n[facility] ER 500 mg 5-11 tablet by ity o f 24 hr 00:00: mouth 2 [place] tablet 00 (two) Medical times Branch daily with meals. Blood-Gluco 2020-0 Yes [id number] Check [facility] se Meter 5-11 glucose ity of Kit 00:00: once daily [place] 00 before Medical breakfast; Branch ICD-10 code E11.9 blood sugar 0 Yes [id number] Check [facility] diagnostic 5-11 glucose ity of (BLOOD 00:00: once daily [place] GLUCOSE 00 before Medical TEST) strip breakfast; Br anch ICD-10 code E11.9 Lancets 2020-0 Yes [id number] Check [facility] ers Misc 5-11 glucose ity of 00:00: once daily [place] 00 before Medical breakfast; Branch ICD-10 code E11.9 pravastatin 2020-0 Yes [id number] 10mg Take 1 [facility] 10 mg 5-11 [id number] tablet by ity of tablet 00:00: mouth [place] 00 every Medical other day. Branch metformin 2020-0 Yes [id number] 500mg Take 1 [facility] nivers ER 500 mg 5-11 tablet by ity o f 24 hr 00:00: mouth 2 [place] tablet 00 (two) Medical times Branch daily with meals. Blood-Gluco 2020- Yes [id number] Check [facility] se Meter 5-11 glucose ity of Kit 00:00: once daily [place] 00 before Medical breakfast; Branch ICD-10 code E11.9 blood sugar 2020-0 Yes [id number] Check [facility] diagnostic 5-11 glucose ity of (BLOOD 00:00: once daily [place] GLUCOSE 00 before Medical TEST) strip breakfast; Br anch ICD-10 code E11.9 Lancets 2020-0 Yes [id number] Check [facility] ers Misc 5-11 glucose ity of 00:00: once daily [place] 00 before Medical breakfast; Branch ICD-10 code E11.9 pravastatin 2020-0 Yes [id number] 10mg Take 1 [facility] 10 mg 5-11 [id number] tablet by ity of tablet 00:00: mouth [place] 00 every Medical other day. Branch metformin 2020-0 Yes [id number] 500mg Take 1 [facility] nivers ER 500 mg 5-11 tablet by ity o f 24 hr 00:00: mouth 2 [place] tablet 00 (two) Medical times Branch daily with meals. Blood-Gluco 2020-0 Yes [id number] Check [facility] se Meter 5-11 glucose ity of Kit 00:00: once daily [place] 00 before Medical breakfast; Branch ICD-10 code E11.9 blood sugar 2020-0 Yes [id number] Check [facility] diagnostic 5-11 glucose ity of (BLOOD 00:00: once daily [place] GLUCOSE 00 before Medical TEST) strip breakfast; Br anch ICD-10 code E11.9 Lancets 2020-0 Yes [id number] Check [facility] ers Misc 5-11 glucose ity of 00:00: once daily [place] 00 before Medical breakfast; Branch ICD-10 code E11.9 pravastatin 2020-0 Yes [id number] 10mg Take 1 [facility] 10 mg 5-11 [id number] tablet by ity of tablet 00:00: mouth [place] 00 every Medical other day. Branch metformin 2020-0 Yes [id number] 500mg Take 1 U nivers ER 500 mg 5-11 tablet by ity o f 24 hr 00:00: mouth 2 [place] tablet 00 (two) Medical times Branch daily with meals. Blood-Gluco 2020-0 Yes [id number] Check [facility] se Meter 5-11 glucose ity of Kit 00:00: once daily [place] 00 before Medical breakfast; Branch ICD-10 code E11.9 blood sugar 2020-0 Yes [id number] Check [facility] diagnostic 5-11 glucose ity of (BLOOD 00:00: once daily [place] GLUCOSE 00 before Medical TEST) strip breakfast; Br anch ICD-10 code E11.9 Lancets 2020-0 Yes [id number] Check [facility] ers Misc 5-11 glucose ity of 00:00: once daily [place] 00 before Medical breakfast; Branch ICD-10 code E11.9 pravastatin 2020-0 Yes [id number] 10mg Take 1 [facility] 10 mg 5-11 [id number] tablet by ity of tablet 00:00: mouth [place] 00 every Medical other day. Branch metformin 2020-0 Yes [id number] 500mg Take 1 [facility] nivers ER 500 mg 5-11 tablet by ity o f 24 hr 00:00: mouth 2 [place] tablet 00 (two) Medical times Branch daily with meals. Blood-Gluco 2020-0 Yes [id number] Check [facility] se Meter 5-11 glucose ity of Kit 00:00: once daily [place] 00 before Medical breakfast; Branch ICD-10 code E11.9 blood sugar 2020-0 Yes [id number] Check [facility] diagnostic 5-11 glucose ity of (BLOOD 00:00: once daily [place] GLUCOSE 00 before Medical TEST) strip breakfast; Br anch ICD-10 code E11.9 Lancets 2020-0 Yes [id number] Check [facility] ers Misc 5-11 glucose ity of 00:00: once daily [place] 00 before Medical breakfast; Branch ICD-10 code E11.9 pravastatin 2020-0 Yes [id number] 10mg Take 1 [facility] 10 mg 5-11 [id number] tablet by ity of tablet 00:00: mouth [place] 00 every Medical other day. Branch metformin 2020-0 Yes [id number] 500mg Take 1 U nivers ER 500 mg 5-11 tablet by ity o f 24 hr 00:00: mouth 2 [place] tablet 00 (two) Medical times Branch daily with meals. Blood-Gluco 2020-0 Yes [id number] Check [facility] se Meter 5-11 glucose ity of Kit 00:00: once daily [place] 00 before Medical breakfast; Branch ICD-10 code E11.9 blood sugar 2020-0 Yes [id number] Check [facility] diagnostic 5-11 glucose ity of (BLOOD 00:00: once daily [place] GLUCOSE 00 before Medical TEST) strip breakfast; Br anch ICD-10 code E11.9 Lancets 2020-0 Yes [id number] Check [facility] ers Misc 5-11 glucose ity of 00:00: once daily [place] 00 before Medical breakfast; Branch ICD-10 code E11.9 pravastatin 2020-0 Yes [id number] 10mg Take 1 [facility] 10 mg 5-11 [id number] tablet by ity of tablet 00:00: mouth [place] 00 every Medical other day. Branch metformin 2020-0 Yes [id number] 500mg Take 1 [facility] nivers ER 500 mg 5-11 tablet by ity o f 24 hr 00:00: mouth 2 [place] tablet 00 (two) Medical times Branch daily with meals. Blood-Gluco 2020-0 Yes [id number] Check [facility] se Meter 5-11 glucose ity of Kit 00:00: once daily [place] 00 before Medical breakfast; Branch ICD-10 code E11.9 blood sugar 2020-0 Yes [id number] Check [facility] diagnostic 5-11 glucose ity of (BLOOD 00:00: once daily [place] GLUCOSE 00 before Medical TEST) strip breakfast; Br anch ICD-10 code E11.9 Lancets 2020- Yes [id number] Check [facility] ers Misc 5-11 glucose ity of 00:00: once daily [place] 00 before Medical breakfast; Branch ICD-10 code E11.9 pravastatin 2020-0 Yes [id number] 10mg Take 1 [facility] 10 mg 5-11 [id number] tablet by ity of tablet 00:00: mouth [place] 00 every Medical other day. Branch metformin 2020-0 Yes [id number] 500mg Take 1 [facility] nivers ER 500 mg 5-11 tablet by ity o f 24 hr 00:00: mouth 2 [place] tablet 00 (two) Medical times Branch daily with meals. Blood-Gluco Yes [id number] Check [facility] se Meter 5-11 glucose ity of Kit 00:00: once daily [place] 00 before Medical breakfast; Branch ICD-10 code E11.9 blood sugar Yes [id number] Check [facility] diagnostic 5-11 glucose ity of (BLOOD 00:00: once daily [place] GLUCOSE 00 before Medical TEST) strip breakfast; Br anch ICD-10 code E11.9 Lancets Yes [id number] Check [facility] ers Misc 5-11 glucose ity of 00:00: once daily [place] 00 before Medical breakfast; Branch ICD-10 code E11.9 pravastatin 2020-0 Yes [id number] 10mg Take 1 [facility] 10 mg 5-11 [id number] tablet by it[facility] of tablet 00:00: mouth [place] 00 every Medical other day. Branch metformin 2020- Yes [id number] 500mg Take 1 [facility] ER 500 mg 5-11 tablet by ity o f 24 hr 00:00: mouth 2 [place] tablet 00 (two) Medical times Branch daily with meals. Blood-Gluco Yes [id number] Check [facility] se Meter 5-11 glucose ity of Kit 00:00: once daily [place] 00 before Medical breakfast; Branch ICD-10 code E11.9 blood sugar 0 Yes [id number] Check [facility] diagnostic 5-11 glucose ity of (BLOOD 00:00: once daily [place] GLUCOSE 00 before Medical TEST) strip breakfast; Br anch ICD-10 code E11.9 Lancets 2020- Yes [id number] Check [facility] ers Misc 5-11 glucose ity of 00:00: once daily [place] 00 before Medical breakfast; Branch ICD-10 code E11.9 pravastatin 2020-0 Yes [id number] 10mg Take 1 [facility] 10 mg 5-11 [id number] tablet by ity of tablet 00:00: mouth [place] 00 every Medical other day. Branch metformin 2020-0 Yes [id number] 500mg Take 1 [facility] ER 500 mg 5-11 tablet by ity o f 24 hr 00:00: mouth 2 [place] tablet 00 (two) Medical times Branch daily with meals. Blood-Gluco 2020-0 Yes [id number] Check [facility] se Meter 5-11 glucose ity of Kit 00:00: once daily [place] 00 before Medical breakfast; Branch ICD-10 code E11.9 blood sugar 2020- Yes [id number] Check [facility] diagnostic 5-11 glucose ity of (BLOOD 00:00: once daily [place] GLUCOSE 00 before Medical TEST) strip breakfast; Br anch ICD-10 code E11.9 Lancets Yes [id number] Check [facility] ers Misc 5-11 glucose ity of 00:00: once daily [place] 00 before Medical breakfast; Branch ICD-10 code E11.9 pravastatin 2020-0 Yes [id number] 10mg Take 1 [facility] 10 mg 5-11 [id number] tablet by ity of tablet 00:00: mouth [place] 00 every Medical other day. Branch metformin 2020-0 Yes [id number] 500mg Take 1 [facility] ER 500 mg 5-11 tablet by ity o f 24 hr 00:00: mouth 2 [place] tablet 00 (two) Medical times Branch daily with meals. Blood-Gluco 2020- Yes [id number] Check [facility] se Meter 5-11 glucose ity of Kit 00:00: once daily [place] 00 before Medical breakfast; Branch ICD-10 code E11.9 blood sugar 0 Yes [id number] Check [facility] diagnostic 5-11 glucose ity of (BLOOD 00:00: once daily [place] GLUCOSE 00 before Medical TEST) strip breakfast; Br anch ICD-10 code E11.9 Lancets 2020-0 Yes [id number] Check [facility] ers Misc 5-11 glucose ity of 00:00: once daily [place] 00 before Medical breakfast; Branch ICD-10 code E11.9 pravastatin 2020-0 Yes [id number] 10mg Take 1 [facility] 10 mg 5-11 [id number] tablet by ity of tablet 00:00: mouth [place] 00 every Medical other day. Branch metformin 2020-0 Yes [id number] 500mg Take 1 [facility] ER 500 mg 5-11 tablet by ity o f 24 hr 00:00: mouth 2 [place] tablet 00 (two) Medical times Branch daily with meals. Blood-Gluco 2020-0 Yes [id number] Check [facility] se Meter 5-11 glucose ity of Kit 00:00: once daily [place] 00 before Medical breakfast; Branch ICD-10 code E11.9 blood sugar 2020-0 Yes [id number] Check [facility] diagnostic 5-11 glucose ity of (BLOOD 00:00: once daily [place] GLUCOSE 00 before Medical TEST) strip breakfast; Br anch ICD-10 code E11.9 Lancets 2020-0 Yes [id number] Check [facility] ers Misc 5-11 glucose ity of 00:00: once daily [place] 00 before Medical breakfast; Branch ICD-10 code E11.9 pravastatin 2020-0 Yes [id number] 10mg Take 1 [facility] 10 mg 5-11 [id number] tablet by ity of tablet 00:00: mouth [place] 00 every Medical other day. Branch metformin 2020-0 Yes [id number] 500mg Take 1 [facility] ER 500 mg 5-11 tablet by ity o f 24 hr 00:00: mouth 2 [place] tablet 00 (two) Medical times Branch daily with meals. Blood-Gluco 2020- Yes [id number] Check [facility] se Meter 5-11 glucose ity of Kit 00:00: once daily [place] 00 before Medical breakfast; Branch ICD-10 code E11.9 blood sugar 2020-0 Yes [id number] Check [facility] diagnostic 5-11 glucose ity of (BLOOD 00:00: once daily [place] GLUCOSE 00 before Medical TEST) strip breakfast; Br anch ICD-10 code E11.9 Lancets 2020-0 Yes [id number] Check [facility] ers Misc 5-11 glucose ity of 00:00: once daily [place] 00 before Medical breakfast; Branch ICD-10 code E11.9 pravastatin 2020-0 Yes [id number] 10mg Take 1 [facility] 10 mg 5-11 [id number] tablet by ity of tablet 00:00: mouth [place] 00 every Medical other day. Branch metformin 2020-0 Yes [id number] 500mg Take 1 [facility] ER 500 mg 5-11 tablet by ity o f 24 hr 00:00: mouth 2 [place] tablet 00 (two) Medical times Branch daily with meals. Blood-Gluco Yes [id number] Check [facility] se Meter 5-11 glucose ity of Kit 00:00: once daily [place] 00 before Medical breakfast; Branch ICD-10 code E11.9 blood sugar 0 Yes [id number] Check [facility] diagnostic 5-11 glucose ity of (BLOOD 00:00: once daily [place] GLUCOSE 00 before Medical TEST) strip breakfast; [facility] ICD-10 code E11.9 Lancets Yes [id number] Check [facility] ers Misc 5-11 glucose ity of 00:00: once daily [place] 00 before Medical breakfast; Branch ICD-10 code E11.9 pravastatin Yes [id number] 10mg Take 1 [facility] 10 mg 5-11 [id number] tablet by ity of tablet 00:00: mouth [place] 00 every Medical other day. [place] metformin Yes [id number] 500mg Take 1 [facility] nivers ER 500 mg 5-11 tablet by ity o f 24 hr 00:00: mouth 2 [place] tablet 00 (two) Medical times [place] daily with meals. LEVOTHYROXI Yes [id number] TAKE 1 [facility] NE 50 mcg 5-05 TABLET BY ity o f tablet 00:00: MOUTH [place] 00 EVERY DAY Medical IN THE [place] MORNING LEVOTHYROXI Yes [id number] TAKE 1 [facility] NE 50 mcg 5-05 TABLET BY ity o f tablet 00:00: MOUTH [place] 00 EVERY DAY Medical IN THE [place] MORNING LEVOTHYROXI Yes [id number] TAKE 1 [facility] NE 50 mcg 5-05 TABLET BY ity o f tablet 00:00: MOUTH [place] 00 EVERY DAY Medical IN THE [place] MORNING LEVOTHYROXI Yes [id number] TAKE 1 [facility] NE 50 mcg 5-05 TABLET BY ity o f tablet 00:00: MOUTH [place] 00 EVERY DAY Medical IN THE [place] MORNING LEVOTHYROXI Yes [id number] TAKE 1 [facility] NE 50 mcg 5-05 TABLET BY ity o f tablet 00:00: MOUTH [place] 00 EVERY DAY Medical IN THE [place] MORNING LEVOTHYROXI Yes [id number] TAKE 1 [facility] NE 50 mcg 5-05 TABLET BY ity o f tablet 00:00: MOUTH [place] 00 EVERY DAY Medical IN THE [place] MORNING LEVOTHYROXI Yes [id number] TAKE 1 [facility] NE 50 mcg 5-05 TABLET BY ity o f tablet 00:00: MOUTH [place] 00 EVERY DAY Medical IN THE [place] MORNING LEVOTHYROXI 2020-0 Yes [id number] TAKE 1 [facility] NE 50 mcg 5-05 TABLET BY ity o f tablet 00:00: MOUTH [place] 00 EVERY DAY Medical IN THE [place] MORNING LEVOTHYROXI 2020-0 Yes [id number] TAKE 1 [facility] NE 50 mcg 5-05 TABLET BY ity o f tablet 00:00: MOUTH [place] 00 EVERY DAY Medical IN THE [place] MORNING LEVOTHYROXI 2020-0 Yes [id number] TAKE 1 [facility] NE 50 mcg 5-05 TABLET BY ity o f tablet 00:00: MOUTH [place] 00 EVERY DAY Medical IN THE [facility] LEVOTHYROXI Yes [id number] TAKE 1 [facility] NE 50 mcg 5-05 TABLET BY ity o f tablet 00:00: MOUTH [place] 00 EVERY DAY Medical IN THE [facility] LEVOTHYROXI 2020- No [id number] TAKE 1 [facility] NE 50 mcg 5-05 06-21 TABLET BY ity of tablet 00:00: 00:00 MOUTH [place] 00 :00 EVERY DAY Medical IN THE [place] MORNING metformin 2020-0 Yes [facility] ER 750 mg 5-03 ity of 24 hr 00:00: [place] tablet 00 [facility] metformin 2020-0 Yes [facility] ER 750 mg 5-03 ity of 24 hr 00:00: [place] tablet 00 [facility] metformin 2020-0 Yes [facility] ER 750 mg 5-03 ity of 24 hr 00:00: [place] tablet 00 [facility] metformin 2020-0 Yes [facility] ER 750 mg 5-03 ity of 24 hr 00:00: [place] tablet 00 [facility] metformin 2020-0 Yes [facility] ER 750 mg 5-03 ity of 24 hr 00:00: [place] tablet 00 [facility] metformin 2020-0 Yes [facility] ER 750 mg 5-03 ity of 24 hr 00:00: [place] tablet 00 [facility] metformin 2020-0 Yes [facility] ER 750 mg 5-03 ity of 24 hr 00:00: [place] tablet 00 [facility] metformin 2020-0 Yes [facility] ER 750 mg 5-03 ity of 24 hr 00:00: [place] tablet 00 [facility] metformin 2020-0 Yes [facility] ER 750 mg 5-03 ity of 24 hr 00:00: [place] tablet 00 Medical Branch metformin 2021-0 Yes [facility] ER 750 mg 5-03 ity of 24 hr 00:00: [place] tablet 00 Medical Branch metformin 1-0 Yes [facility] ER 750 mg 5-03 ity of 24 hr 00:00: [place] tablet 00 Medical Branch TRAZODONE 2021-0 Yes [id number] TAKE 1 [facility] nivers 100 mg 3-18 TABLET BY ity of tablet 00:00: MOUTH EVERY DAY Medical AT BEDTIME Branch NEEDED FOR INSOMNIA TRAZODONE 2020-0 Yes [id number] TAKE 1 [facility] nivers 100 mg 3-18 TABLET BY ity of tablet 00:00: MOUTH EVERY DAY Medical AT BEDTIME Branch NEEDED FOR INSOMNIA TRAZODONE 2020-0 Yes [id number] TAKE 1 [facility] nivers 100 mg 3-18 TABLET BY ity of tablet 00:00: MOUTH EVERY DAY Medical AT BEDTIME Branch NEEDED FOR INSOMNIA TRAZODONE 2020-0 Yes [id number] TAKE 1 [facility] nivers 100 mg 3-18 TABLET BY ity of tablet 00:00: MOUTH EVERY DAY Medical AT BEDTIME Branch NEEDED FOR INSOMNIA TRAZODONE 2020-0 Yes [id number] TAKE 1 [facility] nivers 100 mg 3-18 TABLET BY ity of tablet 00:00: EVERY DAY Medical AT BEDTIME Branch NEEDED FOR INSOMNIA TRAZODONE 2020-0 Yes [id number] TAKE 1 [facility] nivers 100 mg 3-18 TABLET BY ity of tablet 00:00: MOUTH EVERY DAY Medical AT BEDTIME Branch NEEDED FOR INSOMNIA TRAZODONE 1-0 Yes [id number] TAKE 1 [facility] nivers 100 mg 3-18 TABLET BY ity of tablet 00:00: MOUTH EVERY DAY Medical AT BEDTIME Branch NEEDED FOR INSOMNIA TRAZODONE 1-0 Yes [id number] TAKE 1 [facility] nivers 100 mg 3-18 TABLET BY ity of tablet 00:00: MOUTH EVERY DAY Medical AT BEDTIME Branch NEEDED FOR INSOMNIA TRAZODONE 1-0 Yes [id number] TAKE 1 [facility] nivers 100 mg 3-18 TABLET BY ity of tablet 00:00: MOUTH EVERY DAY Medical AT BEDTIME Branch NEEDED FOR INSOMNIA TRAZODONE 1-0 Yes [id number] TAKE 1 [facility] nivers 100 mg 3-18 TABLET BY ity of tablet 00:00: MOUTH EVERY DAY Medical AT BEDTIME Branch NEEDED FOR INSOMNIA TRAZODONE 2021-0 Yes [id number] TAKE 1 [facility] nivers 100 mg 3-18 TABLET BY ity of tablet 00:00: MOUTH EVERY DAY Medical AT BEDTIME Branch NEEDED FOR INSOMNIA TRAZODONE 2021-0 Yes [id number] TAKE 1 [facility] nivers 100 mg 3-18 TABLET BY ity of tablet 00:00: MOUTH EVERY DAY Medical AT BEDTIME Branch NEEDED FOR INSOMNIA TRAZODONE 2021-0 Yes [id number] TAKE 1 [facility] nivers 100 mg 3-18 TABLET BY ity of tablet 00:00: MOUTH EVERY DAY Medical AT BEDTIME Branch NEEDED FOR INSOMNIA TRAZODONE 2020-0 Yes [id number] TAKE 1 [facility] nivers 100 mg 3-18 TABLET BY ity of tablet 00:00: MOUTH EVERY DAY Medical AT BEDTIME Branch NEEDED FOR INSOMNIA TRAZODONE 1-0 Yes [id number] TAKE 1 [facility] nivers 100 mg 3-18 TABLET BY ity of tablet 00:00: MOUTH EVERY DAY Medical AT BEDTIME Branch NEEDED FOR INSOMNIA TRAZODONE 1-0 Yes [id number] TAKE 1 [facility] nivers 100 mg 3-18 TABLET BY ity of tablet 00:00: EVERY DAY Medical AT BEDTIME Branch NEEDED FOR INSOMNIA TRAZODONE 2021-0 Yes [id number] TAKE 1 [facility] nivers 100 mg 3-18 TABLET BY ity of tablet 00:00: EVERY DAY Medical AT BEDTIME Branch NEEDED FOR INSOMNIA TRAZODONE 1-0 Yes [id number] TAKE 1 [facility] nivers 100 mg 3-18 TABLET BY ity of tablet 00:00: MOUTH EVERY DAY Medical AT BEDTIME Branch NEEDED FOR INSOMNIA TRAZODONE 1-0 Yes [id number] TAKE 1 [facility] nivers 100 mg 3-18 TABLET BY ity of tablet 00:00: MOUTH 00 EVERY DAY Medical AT BEDTIME Branch NEEDED FOR INSOMNIA TRAZODONE 2021-0 Yes [id number] TAKE 1 [facility] nivers 100 mg 3-18 TABLET BY ity of tablet 00:00: MOUTH EVERY DAY Medical AT BEDTIME Branch NEEDED FOR INSOMNIA TRAZODONE 2021-0 Yes [id number] TAKE 1 [facility] nivers 100 mg 3-18 TABLET BY ity of tablet 00:00: MOUTH [place] 00 EVERY DAY Medical AT BEDTIME Branch NEEDED FOR INSOMNIA TRAZODONE 2020-0 Yes [id number] TAKE 1 [facility] nivers 100 mg 3-18 TABLET BY ity of tablet 00:00: MOUTH [place] 00 EVERY DAY Medical AT BEDTIME Branch NEEDED FOR INSOMNIA TRAZODONE 2020-0 Yes [id number] TAKE 1 [facility] nivers 100 mg 3-18 TABLET BY ity of tablet 00:00: MOUTH [place] 00 EVERY DAY Medical AT BEDTIME Branch NEEDED FOR INSOMNIA TRAZODONE 0 Yes [id number] TAKE 1 [facility] nivers 100 mg 3-18 TABLET BY ity of tablet 00:00: MOUTH [place] 00 EVERY DAY Medical AT BEDTIME Branch NEEDED FOR INSOMNIA TRAZODONE 0 Yes [id number] TAKE 1 [facility] nivers 100 mg 3-18 TABLET BY ity of tablet 00:00: MOUTH [place] EVERY DAY Medical AT BEDTIME Branch NEEDED FOR INSOMNIA TRAZODONE 0 Yes [id number] TAKE 1 [facility] nivers 100 mg 3-18 TABLET BY ity of tablet 00:00: MOUTH [place] 00 EVERY DAY Medical AT BEDTIME Branch NEEDED FOR INSOMNIA TRAZODONE 2020-0 Yes [id number] TAKE 1 [facility] nivers 100 mg 3-18 TABLET BY ity of tablet 00:00: MOUTH [place] 00 EVERY DAY Medical AT BEDTIME Branch NEEDED FOR INSOMNIA metroNIDAZO 2020- No 500mg 500 mg, IV [facility] LE in NaCl 11-14 Infusion, ity of (iso-os) 21:45: 09:44 ONCE, 1 [place] (FLAGYL 00 :00 dose, [facility] RTU 11/14/20 at [facility] IV infusion 1545, 100 500 mg [...] 1400, 100 mL Routine ciprofloxac 2020-0 Yes [id number] 500mg Take 1 [facility] in HCl 500 2-28 tablet by ity of mg tablet 00:00: mouth (two) Medical times Branch daily. metroNIDAZO 1-0 Yes [id number] 500mg Take 1 [facility] LE 500 mg 2-28 tablet by ity o f tablet 00:00: mouth (two) Medical times Branch daily. ciprofloxac 2020-0 Yes [id number] 500mg Take 1 [facility] in HCl 500 2-28 tablet by ity of mg tablet 00:00: mouth (two) Medical times Branch daily. metroNIDAZO 1-0 Yes [id number] 500mg Take 1 [facility] LE 500 mg 2-28 tablet by ity o f tablet 00:00: mouth (two) Medical times Branch daily. ciprofloxac 2020-0 Yes [id number] 500mg Take 1 [facility] in HCl 500 2-28 tablet by ity of mg tablet 00:00: mouth (two) Medical times Branch daily. metroNIDAZO 2020-0 Yes [id number] 500mg Take 1 [facility] LE 500 mg 2-28 tablet by ity o f tablet 00:00: mouth (two) Medical times Branch daily. ciprofloxac 2020-0 Yes [id number] 500mg Take 1 [facility] in HCl 500 2-28 tablet by ity of mg tablet 00:00: mouth (two) Medical times Branch daily. metroNIDAZO 1-0 Yes [id number] 500mg Take 1 [facility] LE 500 mg 2-28 tablet by ity o f tablet 00:00: mouth (two) Medical times Branch daily. ciprofloxac 1-0 Yes [id number] 500mg Take 1 [facility] in HCl 500 2-28 tablet by ity of mg tablet 00:00: mouth (two) Medical times Branch daily. metroNIDAZO 2021-0 Yes [id number] 500mg Take 1 [facility] LE 500 mg 2-28 tablet by ity o f tablet 00:00: mouth (two) Medical times Branch daily. ciprofloxac 2021-0 Yes [id number] 500mg Take 1 [facility] in HCl 500 2-28 tablet by ity of mg tablet 00:00: mouth (two) Medical times Branch daily. metroNIDAZO 2021-0 Yes [id number] 500mg Take 1 [facility] LE 500 mg 2-28 tablet by ity o f tablet 00:00: mouth (two) Medical times Branch daily. ciprofloxac 2021-0 Yes [id number] 500mg Take 1 [facility] in HCl 500 2-28 tablet by ity of mg tablet 00:00: mouth (two) Medical times Branch daily. metroNIDAZO 2021-0 Yes [id number] 500mg Take 1 [facility] LE 500 mg 2-28 tablet by ity o f tablet 00:00: mouth (two) Medical times Branch daily. ciprofloxac 2021-0 Yes [id number] 500mg Take 1 [facility] in HCl 500 2-28 tablet by ity of mg tablet 00:00: mouth (two) Medical times Branch daily. metroNIDAZO 2021-0 Yes [id number] 500mg Take 1 [facility] LE 500 mg 2-28 tablet by ity o f tablet 00:00: mouth (two) Medical times Branch daily. ciprofloxac 2021-0 Yes [id number] 500mg Take 1 [facility] in HCl 500 2-28 tablet by ity of mg tablet 00:00: mouth (two) Medical times Branch daily. metroNIDAZO 2021-0 Yes [id number] 500mg Take 1 [facility] LE 500 mg 2-28 tablet by ity o f tablet 00:00: mouth (two) Medical times Branch daily. ciprofloxac 2021-0 Yes [id number] 500mg Take 1 [facility] in HCl 500 2-28 tablet by ity of mg tablet 00:00: mouth (two) Medical times Branch daily. metroNIDAZO 2021-0 Yes [id number] 500mg Take 1 [facility] LE 500 mg 2-28 tablet by ity o f tablet 00:00: mouth (two) Medical times Branch daily. ciprofloxac 2021-0 Yes [id number] 500mg Take 1 [facility] in HCl 500 2-28 tablet by ity of mg tablet 00:00: mouth (two) Medical times Branch daily. metroNIDAZO 2021-0 Yes [id number] 500mg Take 1 [facility] LE 500 mg 2-28 tablet by ity o f tablet 00:00: mouth (two) Medical times Branch daily. ciprofloxac 2021-0 Yes [id number] 500mg Take 1 [facility] in HCl 500 2-28 tablet by ity of mg tablet 00:00: mouth (two) Medical times Branch daily. metroNIDAZO 2021-0 Yes [id number] 500mg Take 1 [facility] LE 500 mg 2-28 tablet by ity o f tablet 00:00: mouth (two) Medical times Branch daily. ciprofloxac 2021-0 Yes [id number] 500mg Take 1 [facility] in HCl 500 2-28 tablet by ity of mg tablet 00:00: mouth (two) Medical times Branch daily. metroNIDAZO 1-0 Yes [id number] 500mg Take 1 [facility] LE 500 mg 2-28 tablet by ity o f tablet 00:00: mouth (two) Medical times Branch daily. ciprofloxac 1-0 Yes [id number] 500mg Take 1 [facility] in HCl 500 2-28 tablet by ity of mg tablet 00:00: mouth (two) Medical times Branch daily. metroNIDAZO 1-0 Yes [id number] 500mg Take 1 [facility] LE 500 mg 2-28 tablet by ity o f tablet 00:00: mouth (two) Medical times Branch daily. ciprofloxac 1-0 Yes [id number] 500mg Take 1 [facility] in HCl 500 2-28 tablet by ity of mg tablet 00:00: mouth (two) Medical times Branch daily. metroNIDAZO 2021-0 Yes [id number] 500mg Take 1 [facility] LE 500 mg 2-28 tablet by ity o f tablet 00:00: mouth (two) Medical times Branch daily. ciprofloxac 2021-0 Yes [id number] 500mg Take 1 [facility] in HCl 500 2-28 tablet by ity of mg tablet 00:00: mouth (two) Medical times Branch daily. metroNIDAZO 2021-0 Yes [id number] 500mg Take 1 [facility] LE 500 mg 2-28 tablet by ity o f tablet 00:00: mouth (two) Medical times Branch daily. ciprofloxac 2020-0 Yes [id number] 500mg Take 1 [facility] in HCl 500 2-28 tablet by ity of mg tablet 00:00: mouth (two) Medical times Branch daily. metroNIDAZO 1-0 Yes [id number] 500mg Take 1 [facility] LE 500 mg 2-28 tablet by ity o f tablet 00:00: mouth (two) Medical times Branch daily. ciprofloxac 2020-0 Yes [id number] 500mg Take 1 [facility] in HCl 500 2-28 tablet by ity of mg tablet 00:00: mouth (two) Medical times Branch daily. metroNIDAZO 2020-0 Yes [id number] 500mg Take 1 [facility] LE 500 mg 2-28 tablet by ity o f tablet 00:00: mouth (two) Medical times Branch daily. ciprofloxac 2020-0 Yes [id number] 500mg Take 1 [facility] in HCl 500 2-28 tablet by ity of mg tablet 00:00: mouth (two) Medical times Branch daily. metroNIDAZO 2020-0 Yes [id number] 500mg Take 1 [facility] LE 500 mg 2-28 tablet by ity o f tablet 00:00: mouth (two) Medical times Branch daily. ciprofloxac 2020-0 Yes [id number] 500mg Take 1 [facility] in HCl 500 2-28 tablet by ity of mg tablet 00:00: mouth (two) Medical times Branch daily. metroNIDAZO 2020-0 Yes [id number] 500mg Take 1 [facility] LE 500 mg 2-28 tablet by ity o f tablet 00:00: mouth (two) Medical times Branch daily. ciprofloxac 1-0 Yes [id number] 500mg Take 1 [facility] in HCl 500 2-28 tablet by ity of mg tablet 00:00: mouth (two) Medical times Branch daily. metroNIDAZO 1-0 Yes [id number] 500mg Take 1 [facility] LE 500 mg 2-28 tablet by ity o f tablet 00:00: mouth (two) Medical times Branch daily. ciprofloxac 2021-0 Yes [id number] 500mg Take 1 [facility] in HCl 500 2-28 tablet by ity of mg tablet 00:00: mouth (two) Medical times Branch daily. metroNIDAZO 2021-0 Yes [id number] 500mg Take 1 [facility] LE 500 mg 2-28 tablet by ity o f tablet 00:00: mouth (two) Medical times Branch daily. ciprofloxac 2021-0 Yes [id number] 500mg Take 1 [facility] in HCl 500 2-28 tablet by ity of mg tablet 00:00: mouth (two) Medical times Branch daily. metroNIDAZO 2021-0 Yes [id number] 500mg Take 1 [facility] LE 500 mg 2-28 tablet by ity o f tablet 00:00: mouth (two) Medical times Branch daily. ciprofloxac 1-0 Yes [id number] 500mg Take 1 [facility] in HCl 500 2-28 tablet by ity of mg tablet 00:00: mouth (two) Medical times Branch daily. metroNIDAZO 1-0 Yes [id number] 500mg Take 1 [facility] LE 500 mg 2-28 tablet by ity o f tablet 00:00: mouth (two) Medical times Branch daily. ciprofloxac 1-0 Yes [id number] 500mg Take 1 [facility] in HCl 500 2-28 tablet by ity of mg tablet 00:00: mouth (two) Medical times Branch daily. metroNIDAZO 1-0 Yes [id number] 500mg Take 1 [facility] LE 500 mg 2-28 tablet by ity o f tablet 00:00: mouth (two) Medical times Branch daily. ciprofloxac 1-0 Yes [id number] 500mg Take 1 [facility] in HCl 500 2-28 tablet by ity of mg tablet 00:00: mouth (two) Medical times Branch daily. metroNIDAZO 2021-0 Yes [id number] 500mg Take 1 [facility] LE 500 mg 2-28 tablet by ity o f tablet 00:00: mouth (two) Medical times Branch daily. ciprofloxac 2021-0 Yes [id number] 500mg Take 1 [facility] in HCl 500 2-28 tablet by ity of mg tablet 00:00: mouth 2 (two) Medical times Branch daily. metroNIDAZO 2020-0 Yes [id number] 500mg Take 1 [facility] LE 500 mg 2-28 tablet by ity o f tablet 00:00: mouth (two) Medical times Branch daily. ciprofloxac 2020-0 Yes [id number] 500mg Take 1 [facility] in HCl 500 2-28 tablet by ity of mg tablet 00:00: mouth (two) Medical times Branch daily. metroNIDAZO 2020-0 Yes [id number] 500mg Take 1 [facility] LE 500 mg [...] Indication s: acute pain gabapentin 2020-0 Yes [id number] 300mg Take 3 [facility] 100 mg 2-05 [id number] capsules ity of capsule 00:00: by mouth [place] 00 (three) Medical times Branch daily. gabapentin 2020-0 Yes [id number] 300mg Take 3 [facility] 100 mg 2-05 [id number] capsules ity of capsule 00:00: by mouth 3 [place] 00 (three) Medical times Branch daily. gabapentin 2020-0 Yes [id number] 300mg Take 3 [facility] 100 mg 2-05 [id number] capsules ity of capsule 00:00: by mouth 3 [place] 00 (three) Medical times Branch daily. gabapentin 2020-0 Yes [id number] 300mg Take 3 [facility] 100 mg 2-05 [id number] capsules ity of capsule 00:00: by mouth 3 [place] 00 (three) Medical times Branch daily. gabapentin 202-0 Yes [id number] 300mg Take 3 [facility] 100 mg 2-05 [id number] capsules ity of capsule 00:00: by mouth 3 [place] 00 (three) Medical times Branch daily. gabapentin 2020-0 Yes [id number] 300mg Take 3 [facility] 100 mg 2-05 [id number] capsules ity of capsule 00:00: by mouth 3 [place] 00 (three) Medical times Branch daily. gabapentin 2021-0 Yes [id number] 300mg Take 3 [facility] 100 mg 2-05 [id number] capsules ity of capsule 00:00: by mouth 3 [place] 00 (three) Medical times Branch daily. gabapentin 2021-0 Yes [id number] 300mg Take 3 [facility] 100 mg 2-05 [id number] capsules ity of capsule 00:00: by mouth 3 [place] 00 (three) Medical times Branch daily. gabapentin 2021-0 Yes [id number] 300mg Take 3 [facility] 100 mg 2-05 [id number] capsules ity of capsule 00:00: by mouth 3 [place] 00 (three) Medical times Branch daily. gabapentin 2021-0 Yes [id number] 300mg Take 3 [facility] 100 mg 2-05 [id number] capsules ity of capsule 00:00: by mouth 3 [place] 00 (three) Medical times Branch daily. gabapentin 2021-0 Yes [id number] 300mg Take 3 [facility] 100 mg 2-05 [id number] capsules ity of capsule 00:00: by mouth 3 [place] 00 (three) Medical times Branch daily. gabapentin 2021-0 Yes [id number] 300mg Take 3 [facility] 100 mg 2-05 [id number] capsules ity of capsule 00:00: by mouth 3 [place] 00 (three) Medical times Branch daily. gabapentin 2021-0 Yes [id number] 300mg Take 3 [facility] 100 mg 2-05 [id number] capsules ity of capsule 00:00: by mouth 3 [place] 00 (three) Medical times Branch daily. gabapentin 2021-0 Yes [id number] 300mg Take 3 [facility] 100 mg 2-05 [id number] capsules ity of capsule 00:00: by mouth 3 [place] 00 (three) Medical times Branch daily. gabapentin 2021-0 Yes [id number] 300mg Take 3 [facility] 100 mg 2-05 [id number] capsules ity of capsule 00:00: by mouth 3 [place] 00 (three) Medical times Branch daily. gabapentin 2021-0 Yes [id number] 300mg Take 3 [facility] 100 mg 2-05 [id number] capsules ity of capsule 00:00: by mouth 3 [place] 00 (three) Medical times Branch daily. gabapentin 2021-0 Yes [id number] 300mg Take 3 [facility] 100 mg 2-05 [id number] capsules ity of capsule 00:00: by mouth 3 [place] 00 (three) Medical times Branch daily. gabapentin 2021-0 Yes [id number] 300mg Take 3 [facility] 100 mg 2-05 [id number] capsules ity of capsule 00:00: by mouth 3 [place] 00 (three) Medical times Branch daily. gabapentin 2021-0 Yes [id number] 300mg Take 3 [facility] 100 mg 2-05 [id number] capsules ity of capsule 00:00: by mouth 3 [place] 00 (three) Medical times Branch daily. gabapentin 2021-0 Yes [id number] 300mg Take 3 [facility] 100 mg 2-05 [id number] capsules ity of capsule 00:00: by mouth 3 [place] 00 (three) Medical times Branch daily. gabapentin 2021-0 Yes [id number] 300mg Take 3 [facility] 100 mg 2-05 [id number] capsules ity of capsule 00:00: by mouth 3 [place] 00 (three) Medical times Branch daily. gabapentin 2021-0 Yes [id number] 300mg Take 3 [facility] 100 mg 2-05 [id number] capsules ity of capsule 00:00: by mouth 3 [place] 00 (three) Medical times Branch daily. gabapentin 2021-0 Yes [id number] 300mg Take 3 [facility] 100 mg 2-05 [id number] capsules ity of capsule 00:00: by mouth 3 [place] [facility] daily. gabapentin 2021-0 Yes [id number] 300mg Take 3 [facility] 100 mg 2-05 [id number] capsules [facility] capsule 00:00: by mouth 3 [place] ([facility] times [facility] daily. gabapentin 2021-0 Yes [id number] 300mg Take 3 [facility] 100 mg 2-05 [id number] capsules [facility] capsule 00:00: by mouth 3 [place] ([facility] [facility] times [facility] daily. gabapentin 2021-0 Yes [id number] 300mg Take 3 [facility] 100 mg 2-05 [id number] capsules [facility] capsule 00:00: by mouth 3 [place] ([facility] [facility] times [facility] daily. gabapentin 2021-0 Yes [id number] 300mg Take 3 [facility] 100 mg 2-05 [id number] capsules [facility] capsule 00:00: by mouth 3 [place] ([facility] [facility] times [facility] daily. gabapentin 2021-0 Yes [id number] 300mg Take 3 [facility] 100 mg 2-05 [id number] capsules [facility] capsule 00:00: by mouth 3 [place] ([place] [facility] times [facility] daily. gabapentin 2021-0 Yes [id number] 300mg Take 3 [facility] 100 mg 2-05 [id number] capsules [facility] capsule 00:00: by mouth 3 [place] ([facility]) [facility] times [facility] daily. gabapentin 2021-0 Yes [id number] 300mg Take 3 [facility] 100 mg 2-05 [id number] capsules [facility] capsule 00:00: by mouth 3 [place] ([place]) [facility] times [facility] daily. gabapentin 2021-0 Yes [id number] 300mg Take 3 [facility] 100 mg 2-05 [id number] capsules [facility] capsule 00:00: by mouth 3 [place] ([facility]) [facility] times [facility] daily. gabapentin 2021-0 Yes [id number] 300mg Take 3 [facility] 100 mg 2-05 [id number] capsules [facility] capsule 00:00: by mouth 3 [place] ([place]) [facility] times [facility] daily. gabapentin 2021-0 Yes [id number] 300mg Take 3 [facility] 100 mg 1-05 [id number] capsules [facility] capsule 00:00: by mouth 3 [place] ([facility]) [facility] times [facility] daily. gabapentin 2021-0 Yes [id number] 300mg Take 3 [facility] 100 mg 1-05 [id number] capsules [facility] capsule 00:00: by mouth 3 [place] (three) [facility] times [facility] daily. gabapentin 2021-0 Yes [id number] 300mg Take 3 [facility] 100 mg 1-05 [id number] capsules [facility] capsule 00:00: by mouth 3 [place] ([facility]) [facility] times [facility] daily. gabapentin 2021-0 Yes [id number] 300mg Take 3 [facility] 100 mg 1-05 [id number] capsules [facility] capsule 00:00: by mouth 3 [place] ([facility]) [facility] times [facility] daily. gabapentin 2021-0 Yes [id number] 300mg Take 3 [facility] 100 mg 1-05 [id number] capsules [facility] capsule 00:00: by mouth 3 [place] ([facility]) [facility] times [facility] daily. gabapentin 2021-0 Yes [id number] 300mg Take 3 [facility] 100 mg 1-05 [id number] capsules [facility] capsule 00:00: by mouth 3 [place] ([facility]) [facility] times [facility] daily. gabapentin 2021-0 Yes [id number] 300mg Take 3 [facility] 100 mg 1-05 [id number] capsules [facility] capsule 00:00: by mouth 3 [place] ([facility]) [facility] times [facility] daily. gabapentin 2020-0 Yes [id number] 300mg Take 3 [facility] 100 mg 1-05 [id number] capsules [facility] capsule 00:00: by mouth 3 [place] (three) [facility] times [facility] daily. gabapentin 2020-0 Yes [id number] 300mg Take 3 [facility] 100 mg 1-05 [id number] capsules [facility] capsule 00:00: by mouth 3 [place] (three) [facility] times [facility] daily. gabapentin 2020-0 Yes [id number] 300mg Take 3 [facility] 100 mg 1-05 [id number] capsules [facility] capsule 00:00: by mouth 3 [place] (three) [facility] times [facility] daily. gabapentin 2020-0 Yes [id number] 300mg Take 3 [facility] 100 mg 1-05 [id number] capsules [facility] capsule 00:00: by mouth 3 [place] (three) [facility] times [facility] daily. gabapentin 2020-0 Yes [id number] 300mg Take 3 [facility] 100 mg 1-05 [id number] capsules [facility] capsule 00:00: by mouth 3 [place] (three) [facility] times [facility] daily. gabapentin 2020-0 Yes [id number] 300mg Take 3 [facility] 100 mg 1-05 [id number] capsules [facility] capsule 00:00: by mouth 3 [place] ([facility]) [facility] times [facility] daily. gabapentin 2020-0 2021- No [id number] 300mg Take 3 [facility] 100 mg 1-05 02-05 [id number] capsules [facility] capsule 00:00: 00:00 by mouth 3 [place] 00 :00 (three) [facility] times [facility] daily. DEXILANT 60 2019- Yes [id number] 60mg TAKE 1 [facility] mg capsule 2-22 CAPSULE BY ity of 00:00: MOUTH [place] 00 DAILY. Medical STOP Branch ESOMEPRAZO LE. DEXILANT 60 2019- Yes [id number] 60mg TAKE 1 [facility] mg capsule 2-22 CAPSULE BY ity of 00:00: MOUTH [place] 00 DAILY. Medical STOP Branch ESOMEPRAZO LE. DEXILANT 60 2019- Yes [id number] 60mg TAKE 1 [facility] mg capsule 2-22 CAPSULE BY ity of 00:00: MOUTH [place] 00 DAILY. Medical STOP Branch ESOMEPRAZO LE. DEXILANT 60 2019-09 Yes [id number] 60mg TAKE 1 [facility] mg capsule 2-22 CAPSULE BY ity of 00:00: MOUTH [place] 00 DAILY. Medical STOP Branch ESOMEPRAZO LE. DEXILANT 60 2020-1 Yes [id number] 60mg TAKE 1 [facility] mg capsule 2-22 CAPSULE BY [facility] of 00:00: MOUTH [place] 00 DAILY. Medical STOP Branch ESOMEPRAZO LE. DEXILANT 60 2020-1 Yes [id number] 60mg TAKE 1 [facility] mg capsule 2-22 CAPSULE BY [facility] of 00:00: MOUTH [place] 00 DAILY. Medical STOP Branch ESOMEPRAZO LE. DEXILANT 60 2020- Yes [id number] 60mg TAKE 1 [facility] mg capsule 2-22 CAPSULE BY it[facility] of 00:00: MOUTH [place] 00 DAILY. Medical STOP Branch ESOMEPRAZO LE. DEXILANT 60 2019- Yes [id number] 60mg TAKE 1 [facility] mg capsule 2-22 CAPSULE BY [facility] of 00:00: MOUTH [place] 00 DAILY. Medical STOP Branch ESOMEPRAZO LE. DEXILANT 60 2019- Yes [id number] 60mg TAKE 1 [facility] mg capsule 2-22 CAPSULE BY [facility] of 00:00: MOUTH [place] 00 DAILY. Medical STOP Branch ESOMEPRAZO LE. DEXILANT 60 2019- Yes [id number] 60mg TAKE 1 [facility] mg capsule 2-22 CAPSULE BY [facility] of 00:00: MOUTH [place] 00 DAILY. Medical STOP Branch ESOMEPRAZO LE. DEXILANT 60 2019- Yes [id number] 60mg TAKE 1 [facility] mg capsule 2-22 CAPSULE BY [facility] of 00:00: MOUTH [place] 00 DAILY. Medical STOP Branch ESOMEPRAZO LE. DEXILANT 60 2020-1 Yes [id number] 60mg TAKE 1 [facility] mg capsule 2-22 CAPSULE BY [facility] of 00:00: MOUTH [place] 00 DAILY. Medical STOP Branch ESOMEPRAZO LE. DEXILANT 60 2019- Yes [id number] 60mg TAKE 1 [facility] mg capsule 2-22 CAPSULE BY [facility] of 00:00: MOUTH [place] 00 DAILY. Medical STOP Branch ESOMEPRAZO LE. DEXILANT 60 2020- Yes [id number] 60mg TAKE 1 [facility] mg capsule 2-22 CAPSULE BY [facility] of 00:00: MOUTH [place] 00 DAILY. Medical STOP Branch ESOMEPRAZO LE. DEXILANT 60 2020- Yes [id number] 60mg TAKE 1 [facility] mg capsule 2-22 CAPSULE BY [facility] of 00:00: MOUTH [place] 00 DAILY. Medical STOP Branch ESOMEPRAZO LE. DEXILANT 60 2020- Yes [id number] 60mg TAKE 1 [facility] mg capsule 2-22 CAPSULE BY [facility] of 00:00: MOUTH [place] 00 DAILY. Medical STOP Branch ESOMEPRAZO LE. DEXILANT 60 2019- Yes [id number] 60mg TAKE 1 [facility] mg capsule 2-22 CAPSULE BY [facility] of 00:00: MOUTH [place] 00 DAILY. Medical STOP Branch ESOMEPRAZO LE. DEXILANT 60 2019- Yes [id number] 60mg TAKE 1 [facility] mg capsule 2-22 CAPSULE BY ity of 00:00: MOUTH [place] 00 DAILY. Medical STOP Branch ESOMEPRAZO LE. DEXILANT 60 2019- Yes [id number] 60mg TAKE 1 [facility] mg capsule 2-22 CAPSULE BY [facility] of 00:00: MOUTH [place] 00 DAILY. Medical STOP Branch ESOMEPRAZO LE. DEXILANT 60 2019- Yes [id number] 60mg TAKE 1 [facility] mg capsule 2-22 CAPSULE BY [facility] of 00:00: MOUTH [place] 00 DAILY. Medical STOP Branch ESOMEPRAZO LE. DEXILANT 60 2019- Yes [id number] 60mg TAKE 1 [facility] mg capsule 2-22 CAPSULE BY [facility] of 00:00: MOUTH [place] 00 DAILY. Medical STOP Branch ESOMEPRAZO LE. DEXILANT 60 2019- Yes [id number] 60mg TAKE 1 [facility] mg capsule 2-22 CAPSULE BY [facility] of 00:00: MOUTH [place] 00 DAILY. Medical STOP Branch ESOMEPRAZO LE. DEXILANT 60 2019- Yes [id number] 60mg TAKE 1 [facility] mg capsule 2-22 CAPSULE BY [facility] of 00:00: MOUTH [place] 00 DAILY. Medical STOP Branch ESOMEPRAZO LE. DEXILANT 60 2019- Yes [id number] 60mg TAKE 1 [facility] mg capsule 2-22 CAPSULE BY [facility] of 00:00: MOUTH [place] 00 DAILY. Medical STOP Branch ESOMEPRAZO LE. DEXILANT 60 2020- Yes [id number] 60mg TAKE 1 [facility] mg capsule 2-22 CAPSULE BY [facility] of 00:00: MOUTH [place] 00 DAILY. Medical STOP Branch ESOMEPRAZO LE. DEXILANT 60 2019- Yes [id number] 60mg TAKE 1 [facility] mg capsule 2-22 CAPSULE BY [facility] of 00:00: MOUTH [place] 00 DAILY. Medical STOP Branch ESOMEPRAZO LE. DEXILANT 60 2019-09 Yes [id number] 60mg TAKE 1 [facility] mg capsule 2-22 CAPSULE BY [facility] of 00:00: MOUTH [place] 00 DAILY. Medical STOP Branch ESOMEPRAZO LE. DEXILANT 60 2019-09 Yes [id number] 60mg TAKE 1 [facility] mg capsule 2-22 CAPSULE BY it[facility] of 00:00: MOUTH [place] 00 DAILY. Medical STOP Branch ESOMEPRAZO LE. DEXILANT 60 2019-09 Yes [id number] 60mg TAKE 1 [facility] mg capsule 2-22 CAPSULE BY [facility] of 00:00: MOUTH [place] 00 DAILY. Medical STOP Branch ESOMEPRAZO LE. DEXILANT 60 2019-09 Yes [id number] 60mg TAKE 1 [facility] mg capsule 2-22 CAPSULE BY [facility] of 00:00: MOUTH [place] 00 DAILY. Medical STOP Branch ESOMEPRAZO LE. DEXILANT 60 2019-09 Yes [id number] 60mg TAKE 1 [facility] mg capsule 2-22 CAPSULE BY [facility] of 00:00: MOUTH [place] 00 DAILY. Medical STOP Branch ESOMEPRAZO LE. DEXILANT 60 2019-09 Yes [id number] 60mg TAKE 1 [facility] mg capsule 2-22 CAPSULE BY [facility] of 00:00: MOUTH [place] 00 DAILY. Medical STOP Branch ESOMEPRAZO LE. DEXILANT 60 2019-09 Yes [id number] 60mg TAKE 1 [facility] mg capsule 2-22 CAPSULE BY ity of 00:00: MOUTH [place] 00 DAILY. Medical STOP Branch ESOMEPRAZO LE. DEXILANT 60 2019-09 Yes [id number] 60mg TAKE 1 [facility] mg capsule 2-22 CAPSULE BY [facility] of 00:00: MOUTH [place] 00 DAILY. Medical STOP Branch ESOMEPRAZO LE. DEXILANT 60 2019-09 Yes [id number] 60mg TAKE 1 [facility] mg capsule 2-22 CAPSULE BY [facility] of 00:00: MOUTH [place] 00 DAILY. Medical STOP Branch ESOMEPRAZO LE. DEXILANT 60 2019-09 Yes [id number] 60mg TAKE 1 [facility] mg capsule 2-22 CAPSULE BY [facility] of 00:00: MOUTH [place] 00 DAILY. Medical STOP Branch ESOMEPRAZO LE. DEXILANT 60 2019-09 Yes [id number] 60mg TAKE 1 [facility] mg capsule 2-22 CAPSULE BY ity of 00:00: MOUTH [place] 00 DAILY. Medical STOP Branch ESOMEPRAZO LE. DEXILANT 60 2019-09- No [id number] 60mg TAKE 1 [facility] mg capsule 2-22 08-18 CAPSULE BY it y of 00:00: 00:00 MOUTH [place] 00 :00 DAILY. Medical STOP Branch ESOMEPRAZO LE. thiamine 2019- Yes [id number] 100mg Take 1 [facility] 100 mg 2-16 tablet by [facility] of tablet 00:00: mouth [place] 00 daily. Medical Branch Ferrous 2020- Yes [id number] 142mg Take 1 [facility] vers Sulfate 2-16 tablet by ity of (SLOW FE) 00:00: mouth [place] 142 mg (45 00 daily. Medical mg iron) Branch tablet thiamine 2019-09 Yes [id number] 100mg Take 1 [facility] 100 mg 2-16 tablet by [facility] of tablet 00:00: mouth [place] 00 daily. Medical Branch Ferrous 2019- Yes [id number] 142mg Take 1 [facility] vers Sulfate 2-16 tablet by ity of (SLOW FE) 00:00: mouth [place] 142 mg (45 00 daily. Medical mg iron) Branch tablet thiamine 2019-09 Yes [id number] 100mg Take 1 [facility] 100 mg 2-16 tablet by [facility] of tablet 00:00: mouth [place] 00 daily. Medical Branch Ferrous 2019- Yes [id number] 142mg Take 1 [facility] vers Sulfate 2-16 tablet by ity of (SLOW FE) 00:00: mouth [place] 142 mg (45 00 daily. Medical mg iron) Branch tablet thiamine 2019-09 Yes [id number] 100mg Take 1 [facility] 100 mg 2-16 tablet by [facility] of tablet 00:00: mouth [place] 00 daily. Medical Branch Ferrous 2020- Yes [id number] 142mg Take 1 [facility] vers Sulfate 2-16 tablet by ity of (SLOW FE) 00:00: mouth [place] 142 mg (45 00 daily. Medical mg iron) Branch tablet thiamine 2019- Yes [id number] 100mg Take 1 [facility] 100 mg 2-16 tablet by [facility] of tablet 00:00: mouth [place] 00 daily. Medical Branch Ferrous 2020- Yes [id number] 142mg Take 1 [facility] vers Sulfate 2-16 tablet by ity of (SLOW FE) 00:00: mouth [place] 142 mg (45 00 daily. Medical mg iron) Branch tablet thiamine 2019- Yes [id number] 100mg Take 1 [facility] 100 mg 2-16 tablet by [facility] of tablet 00:00: mouth [place] 00 daily. Medical Branch Ferrous 2020- Yes [id number] 142mg Take 1 [facility] vers Sulfate 2-16 tablet by ity of (SLOW FE) 00:00: mouth [place] 142 mg (45 00 daily. Medical mg iron) Branch tablet thiamine 2019-09 Yes [id number] 100mg Take 1 [facility] 100 mg 2-16 tablet by [facility] of tablet 00:00: mouth [place] 00 daily. Medical Branch Ferrous 2020- Yes [id number] 142mg Take 1 [facility] vers Sulfate 2-16 tablet by ity of (SLOW FE) 00:00: mouth [place] 142 mg (45 00 daily. Medical mg iron) Branch tablet thiamine 2019-09 Yes [id number] 100mg Take 1 [facility] 100 mg 2-16 tablet by [facility] of tablet 00:00: mouth [place] 00 daily. Medical Branch Ferrous 2019- Yes [id number] 142mg Take 1 [facility] vers Sulfate 2-16 tablet by ity of (SLOW FE) 00:00: mouth [place] 142 mg (45 00 daily. Medical mg iron) Branch tablet thiamine 2019-09 Yes [id number] 100mg Take 1 [facility] 100 mg 2-16 tablet by [facility] of tablet 00:00: mouth [place] 00 daily. Medical Branch Ferrous 2019-09 Yes [id number] 142mg Take 1 [facility] vers Sulfate 2-16 tablet by ity of (SLOW FE) 00:00: mouth [place] 142 mg (45 00 daily. Medical mg iron) Branch tablet thiamine 2019-09 Yes [id number] 100mg Take 1 [facility] 100 mg 2-16 tablet by [facility] of tablet 00:00: mouth [place] 00 daily. Medical Branch Ferrous 2020- Yes [id number] 142mg Take 1 [facility] vers Sulfate 2-16 tablet by ity of (SLOW FE) 00:00: mouth [place] 142 mg (45 00 daily. Medical mg iron) Branch tablet thiamine 2019- Yes [id number] 100mg Take 1 [facility] 100 mg 2-16 tablet by [facility] of tablet 00:00: mouth [place] 00 daily. Medical Branch Ferrous 2020- Yes [id number] 142mg Take 1 [facility] vers Sulfate 2-16 tablet by ity of (SLOW FE) 00:00: mouth [place] 142 mg (45 00 daily. Medical mg iron) Branch tablet thiamine 2019- Yes [id number] 100mg Take 1 [facility] 100 mg 2-16 tablet by [facility] of tablet 00:00: mouth [place] 00 daily. Medical Branch Ferrous 2020- Yes [id number] 142mg Take 1 [facility] vers Sulfate 2-16 tablet by ity of (SLOW FE) 00:00: mouth [place] 142 mg (45 00 daily. Medical mg iron) Branch tablet thiamine 2019-09 Yes [id number] 100mg Take 1 [facility] 100 mg 2-16 tablet by [facility] of tablet 00:00: mouth [place] 00 daily. Medical Branch Ferrous 2020- Yes [id number] 142mg Take 1 [facility] vers Sulfate 2-16 tablet by ity of (SLOW FE) 00:00: mouth [place] 142 mg (45 00 daily. Medical mg iron) Branch tablet thiamine 2019-09 Yes [id number] 100mg Take 1 [facility] 100 mg 2-16 tablet by [facility] of tablet 00:00: mouth [place] 00 daily. Medical Branch Ferrous 2019- Yes [id number] 142mg Take 1 [facility] vers Sulfate 2-16 tablet by ity of (SLOW FE) 00:00: mouth [place] 142 mg (45 00 daily. Medical mg iron) Branch tablet thiamine 2019-09 Yes [id number] 100mg Take 1 [facility] 100 mg 2-16 tablet by [facility] of tablet 00:00: mouth [place] 00 daily. Medical Branch Ferrous 2019-09 Yes [id number] 142mg Take 1 [facility] vers Sulfate 2-16 tablet by ity of (SLOW FE) 00:00: mouth [place] 142 mg (45 00 daily. Medical mg iron) Branch tablet thiamine 2019-09 Yes [id number] 100mg Take 1 [facility] 100 mg 2-16 tablet by [facility] of tablet 00:00: mouth [place] 00 daily. Medical Branch Ferrous 2020- Yes [id number] 142mg Take 1 [facility] vers Sulfate 2-16 tablet by ity of (SLOW FE) 00:00: mouth [place] 142 mg (45 00 daily. Medical mg iron) Branch tablet thiamine 2019-09 Yes [id number] 100mg Take 1 [facility] 100 mg 2-16 tablet by [facility] of tablet 00:00: mouth [place] 00 daily. Medical Branch Ferrous 2020- Yes [id number] 142mg Take 1 [facility] vers Sulfate 2-16 tablet by ity of (SLOW FE) 00:00: mouth [place] 142 mg (45 00 daily. Medical mg iron) Branch tablet thiamine 2019- Yes [id number] 100mg Take 1 [facility] 100 mg 2-16 tablet by [facility] of tablet 00:00: mouth [place] 00 daily. Medical Branch Ferrous 2020- Yes [id number] 142mg Take 1 [facility] vers Sulfate 2-16 tablet by ity of (SLOW FE) 00:00: mouth [place] 142 mg (45 00 daily. Medical mg iron) Branch tablet thiamine 2019-09 Yes [id number] 100mg Take 1 [facility] 100 mg 2-16 tablet by it[facility] of tablet 00:00: mouth [place] 00 daily. Medical Branch Ferrous 2020- Yes [id number] 142mg Take 1 [facility] vers Sulfate 2-16 tablet by ity of (SLOW FE) 00:00: mouth [place] 142 mg (45 00 daily. Medical mg iron) Branch tablet thiamine 2019-09 Yes [id number] 100mg Take 1 [facility] 100 mg 2-16 tablet by [facility] of tablet 00:00: mouth [place] 00 daily. Medical Branch Ferrous 2019- Yes [id number] 142mg Take 1 [facility] vers Sulfate 2-16 tablet by ity of (SLOW FE) 00:00: mouth [place] 142 mg (45 00 daily. Medical mg iron) Branch tablet thiamine 2019-09 Yes [id number] 100mg Take 1 [facility] 100 mg 2-16 tablet by [facility] of tablet 00:00: mouth [place] 00 daily. Medical Branch Ferrous 2019- Yes [id number] 142mg Take 1 [facility] vers Sulfate 2-16 tablet by ity of (SLOW FE) 00:00: mouth [place] 142 mg (45 00 daily. Medical mg iron) Branch tablet thiamine 2019-09 Yes [id number] 100mg Take 1 [facility] 100 mg 2-16 tablet by [facility] of tablet 00:00: mouth [place] 00 daily. Medical Branch Ferrous 2020- Yes [id number] 142mg Take 1 [facility] vers Sulfate 2-16 tablet by ity of (SLOW FE) 00:00: mouth [place] 142 mg (45 00 daily. Medical mg iron) Branch tablet thiamine 2019- Yes [id number] 100mg Take 1 [facility] 100 mg 2-16 tablet by [facility] of tablet 00:00: mouth [place] 00 daily. Medical Branch Ferrous 2020- Yes [id number] 142mg Take 1 [facility] vers Sulfate 2-16 tablet by ity of (SLOW FE) 00:00: mouth [place] 142 mg (45 00 daily. Medical mg iron) Branch tablet thiamine 2019- Yes [id number] 100mg Take 1 [facility] 100 mg 2-16 tablet by it[facility] of tablet 00:00: mouth [place] 00 daily. Medical Branch Ferrous 2020- Yes [id number] 142mg Take 1 [facility] vers Sulfate 2-16 tablet by ity of (SLOW FE) 00:00: mouth [place] 142 mg (45 00 daily. Medical mg iron) Branch tablet thiamine 2019-09 Yes [id number] 100mg Take 1 [facility] 100 mg 2-16 tablet by [facility] of tablet 00:00: mouth [place] 00 daily. Medical Branch Ferrous 2020- Yes [id number] 142mg Take 1 [facility] vers Sulfate 2-16 tablet by ity of (SLOW FE) 00:00: mouth [place] 142 mg (45 00 daily. Medical mg iron) Branch tablet thiamine 2019-09 Yes [id number] 100mg Take 1 [facility] 100 mg 2-16 tablet by ity of tablet 00:00: mouth [place] 00 daily. Medical Branch Ferrous 2020- Yes [id number] 142mg Take 1 [facility] vers Sulfate 2-16 tablet by ity of (SLOW FE) 00:00: mouth [place] 142 mg (45 00 daily. Medical mg iron) Branch tablet thiamine 2019-09 Yes [id number] 100mg Take 1 [facility] 100 mg 2-16 tablet by it[facility] of tablet 00:00: mouth [place] 00 daily. Medical Branch Ferrous 2019- Yes [id number] 142mg Take 1 [facility] vers Sulfate 2-16 tablet by ity of (SLOW FE) 00:00: mouth [place] 142 mg (45 00 daily. Medical mg iron) Branch tablet thiamine 2019-09 Yes [id number] 100mg Take 1 [facility] 100 mg 2-16 tablet by [facility] of tablet 00:00: mouth [place] 00 daily. Medical Branch Ferrous 2020- Yes [id number] 142mg Take 1 [facility] vers Sulfate 2-16 tablet by ity of (SLOW FE) 00:00: mouth [place] 142 mg (45 00 daily. Medical mg iron) Branch tablet thiamine 2019- Yes [id number] 100mg Take 1 [facility] 100 mg 2-16 tablet by it[facility] of tablet 00:00: mouth [place] 00 daily. Medical Branch Ferrous 2020- Yes [id number] 142mg Take 1 [facility] vers Sulfate 2-16 tablet by ity of (SLOW FE) 00:00: mouth [place] 142 mg (45 00 daily. Medical mg iron) Branch tablet thiamine 2019- Yes [id number] 100mg Take 1 [facility] 100 mg 2-16 tablet by it[facility] of tablet 00:00: mouth [place] 00 daily. Medical Branch Ferrous 2020- Yes [id number] 142mg Take 1 [facility] vers Sulfate 2-16 tablet by ity of (SLOW FE) 00:00: mouth [place] 142 mg (45 00 daily. Medical mg iron) Branch tablet thiamine 2019-09 Yes [id number] 100mg Take 1 [facility] 100 mg 2-16 tablet by it[facility] of tablet 00:00: mouth [place] 00 daily. Medical Branch Ferrous 2020- Yes [id number] 142mg Take 1 [facility] vers Sulfate 2-16 tablet by ity of (SLOW FE) 00:00: mouth [place] 142 mg (45 00 daily. Medical mg iron) Branch tablet thiamine 2019-09 Yes [id number] 100mg Take 1 [facility] 100 mg 2-16 tablet by ity of tablet 00:00: mouth [place] 00 daily. Medical Branch Ferrous 2019- Yes [id number] 142mg Take 1 [facility] vers Sulfate 2-16 tablet by ity of (SLOW FE) 00:00: mouth [place] 142 mg (45 00 daily. Medical mg iron) Branch tablet thiamine 2019-09 Yes [id number] 100mg Take 1 [facility] 100 mg 2-16 tablet by [facility] of tablet 00:00: mouth [place] 00 daily. Medical Branch Ferrous 2019- Yes [id number] 142mg Take 1 [facility] vers Sulfate 2-16 tablet by ity of (SLOW FE) 00:00: mouth [place] 142 mg (45 00 daily. Medical mg iron) Branch tablet thiamine 2019-09 Yes [id number] 100mg Take 1 [facility] 100 mg 2-16 tablet by [facility] of tablet 00:00: mouth [place] 00 daily. Medical Branch Ferrous 2020- Yes [id number] 142mg Take 1 [facility] vers Sulfate 2-16 tablet by ity of (SLOW FE) 00:00: mouth [place] 142 mg (45 00 daily. Medical mg iron) Branch tablet thiamine 2019- Yes [id number] 100mg Take 1 [facility] 100 mg 2-16 tablet by [facility] of tablet 00:00: mouth [place] 00 daily. Medical Branch Ferrous 2020- Yes [id number] 142mg Take 1 [facility] vers Sulfate 2-16 tablet by ity of (SLOW FE) 00:00: mouth [place] 142 mg (45 00 daily. Medical mg iron) Branch tablet thiamine 2019-09 Yes [id number] 100mg Take 1 [facility] 100 mg 2-16 tablet by ity of tablet 00:00: mouth [place] 00 daily. Medical Branch Ferrous 2020- Yes [id number] 142mg Take 1 [facility] vers Sulfate 2-16 tablet by ity of (SLOW FE) 00:00: mouth [place] 142 mg (45 00 daily. Medical mg iron) Branch tablet thiamine 2019-09 Yes [id number] 100mg Take 1 [facility] 100 mg 2-16 tablet by it[facility] of tablet 00:00: mouth [place] 00 daily. Medical Branch Ferrous 2020- Yes [id number] 142mg Take 1 [facility] vers Sulfate 2-16 tablet by ity of (SLOW FE) 00:00: mouth [place] 142 mg (45 00 daily. Medical mg iron) Branch tablet thiamine 2019-09 Yes [id number] 100mg Take 1 [facility] 100 mg 2-16 tablet by [facility] of tablet 00:00: mouth [place] 00 daily. Medical Branch Ferrous 2020- Yes [id number] 142mg Take 1 [facility] vers Sulfate 2-16 tablet by ity of (SLOW FE) 00:00: mouth [place] 142 mg (45 00 daily. Medical mg iron) Branch tablet thiamine 2019-09 Yes [id number] 100mg Take 1 [facility] 100 mg 2-16 tablet by [facility] of tablet 00:00: mouth [place] 00 daily. Medical Branch Ferrous 2019- Yes [id number] 142mg Take 1 [facility] vers Sulfate 2-16 tablet by ity of (SLOW FE) 00:00: mouth [place] 142 mg (45 00 daily. Medical mg iron) Branch tablet thiamine 2019-09 Yes [id number] 100mg Take 1 [facility] 100 mg 2-16 tablet by ity of tablet 00:00: mouth [place] 00 daily. Medical Branch Ferrous 2020- Yes [id number] 142mg Take 1 [facility] vers Sulfate 2-16 tablet by ity of (SLOW FE) 00:00: mouth [place] 142 mg (45 00 daily. Medical mg iron) Branch tablet thiamine 2019- Yes [id number] 100mg Take 1 [facility] 100 mg 2-16 tablet by ity of tablet 00:00: mouth [place] 00 daily. Medical Branch Ferrous 2020- Yes [id number] 142mg Take 1 [facility] vers Sulfate 2-16 tablet by ity of (SLOW FE) 00:00: mouth [place] 142 mg (45 00 daily. Medical mg iron) Branch tablet thiamine 2019- Yes [id number] 100mg Take 1 [facility] 100 mg 2-16 tablet by it[facility] of tablet 00:00: mouth [place] 00 daily. Medical Branch Ferrous 2019-09 Yes [id number] 142mg Take 1 [facility] vers Sulfate 2-16 tablet by ity of (SLOW FE) 00:00: mouth [place] 142 mg (45 00 daily. Medical mg iron) Branch tablet thiamine 2019-09 Yes [id number] 100mg Take 1 [facility] 100 mg 2-16 tablet by ity of tablet 00:00: mouth [place] 00 daily. Medical Branch Ferrous 2019-09 Yes [id number] 142mg Take 1 [facility] vers Sulfate 2-16 tablet by ity of (SLOW FE) 00:00: mouth [place] 142 mg (45 00 daily. Medical mg iron) Branch tablet thiamine 2019-09 Yes [id number] 100mg Take 1 [facility] 100 mg 2-16 tablet by ity of tablet 00:00: mouth [place] 00 daily. Medical Branch Ferrous 2019-09 Yes [id number] 142mg Take 1 [facility] vers Sulfate 2-16 tablet by ity of (SLOW FE) 00:00: mouth [place] 142 mg (45 00 daily. Medical mg iron) Branch tablet thiamine 2019-09 Yes [id number] 100mg Take 1 [facility] 100 mg 2-16 tablet by ity of tablet 00:00: mouth [place] 00 daily. Medical Branch Ferrous 2019-09 Yes [id number] 142mg Take 1 [facility] vers Sulfate 2-16 tablet by ity of (SLOW FE) 00:00: mouth [place] 142 mg (45 00 daily. Medical mg iron) Branch tablet thiamine 2019-09 Yes [id number] 100mg Take 1 [facility] 100 mg 2-16 tablet by ity of tablet 00:00: mouth [place] 00 daily. Medical Branch Ferrous 2019-09 Yes [id number] 142mg Take 1 [facility] vers Sulfate 2-16 tablet by ity of (SLOW FE) 00:00: mouth [place] 142 mg (45 00 daily. Medical mg iron) Branch tablet thiamine 2019-09 Yes [id number] 100mg Take 1 [facility] 100 mg 2-16 tablet by ity of tablet 00:00: mouth [place] 00 daily. Medical Branch Ferrous 2019-09 Yes [id number] 142mg Take 1 [facility] vers Sulfate 2-16 tablet by ity of (SLOW FE) 00:00: mouth [place] 142 mg (45 00 daily. Medical mg iron) Branch tablet gabapentin 2019-09- No 100mg 100 mg, [facility] [place] (NEURONTIN) 2-15 12-15 Oral, [facility] of capsule 100 05:30: 04:36 ONCE, 1 [place] 00 :[place] dose, [facility] 08/30/20 Branch at 2330, Routine CLOPIDOGREL 2020-1 Yes [id number] TAKE 1 [facility] 75 mg 2-15 [id number] TABLET BY ity of tablet 00:00: MOUTH [place] 00 EVERY DAY Medical Branch CLOPIDOGREL 2020-1 Yes [id number] TAKE 1 [facility] 75 mg 2-15 [id number] TABLET BY ity of tablet 00:00: MOUTH [place] 00 EVERY DAY Medical Branch PRAVASTATIN 2020-1 Yes [id number] 10mg TAKE 1 [facility] 10 mg 2-15 [id number] TABLET BY ity of tablet 00:00: MOUTH [place] 00 EVERY Medical OTHER DAY Branch CLOPIDOGREL 2020-1 Yes [id number] TAKE 1 [facility] 75 mg 2-15 [id number] TABLET BY ity of tablet 00:00: MOUTH [place] 00 EVERY DAY Medical Branch PRAVASTATIN 2020-1 Yes [id number] 10mg TAKE 1 [facility] 10 mg 2-15 [id number] TABLET BY [facility] tablet 00:00: MOUTH [place] 00 EVERY Medical OTHER DAY Branch CLOPIDOGREL 2020-1 Yes [id number] TAKE 1 [facility] 75 mg 2-15 [id number] TABLET BY [facility] tablet 00:00: MOUTH [place] 00 EVERY DAY Medical Branch PRAVASTATIN 2020-1 Yes [id number] 10mg TAKE 1 [facility] 10 mg 2-15 [id number] TABLET BY [facility] tablet 00:00: MOUTH [place] 00 EVERY Medical OTHER DAY Branch CLOPIDOGREL 2020-1 Yes [id number] TAKE 1 [facility] 75 mg 2-15 [id number] TABLET BY [facility] tablet 00:00: MOUTH [place] 00 EVERY DAY Medical Branch PRAVASTATIN 2020-1 Yes [id number] 10mg TAKE 1 [facility] 10 mg 2-15 [id number] TABLET BY [facility] tablet 00:00: MOUTH [place] 00 EVERY Medical OTHER DAY Branch CLOPIDOGREL 2020-1 Yes [id number] TAKE 1 [facility] 75 mg 2-15 [id number] TABLET BY [facility] tablet 00:00: MOUTH [place] 00 EVERY DAY Medical Branch PRAVASTATIN 2020-1 Yes [id number] 10mg TAKE 1 [facility] 10 mg 2-15 [id number] TABLET BY [facility] tablet 00:00: MOUTH [place] 00 EVERY Medical OTHER DAY Branch CLOPIDOGREL 2020-1 Yes [id number] TAKE 1 [facility] 75 mg 2-15 [id number] TABLET BY [facility] tablet 00:00: MOUTH [place] 00 EVERY DAY Medical Branch PRAVASTATIN 2020-1 Yes [id number] 10mg TAKE 1 [facility] 10 mg 2-15 [id number] TABLET BY [facility] tablet 00:00: MOUTH [place] 00 EVERY Medical OTHER DAY Branch CLOPIDOGREL 2020-1 Yes [id number] TAKE 1 [facility] 75 mg 2-15 [id number] TABLET BY [facility] tablet 00:00: MOUTH [place] 00 EVERY DAY Medical Branch PRAVASTATIN 2020-1 Yes [id number] 10mg TAKE 1 [facility] 10 mg 2-15 [id number] TABLET BY [facility] tablet 00:00: MOUTH [place] 00 EVERY Medical OTHER DAY Branch CLOPIDOGREL 2020-1 Yes [id number] TAKE 1 [facility] 75 mg 2-15 [id number] TABLET BY [facility] tablet 00:00: MOUTH [place] 00 EVERY DAY Medical Branch PRAVASTATIN 2020-1 Yes [id number] 10mg TAKE 1 [facility] 10 mg 2-15 [id number] TABLET BY [facility] tablet 00:00: MOUTH EVERY Medical OTHER DAY Branch CLOPIDOGREL 2020-1 Yes [id number] TAKE 1 [facility] 75 mg 2-15 [id number] TABLET BY [facility] tablet 00:00: MOUTH EVERY DAY Medical Branch PRAVASTATIN 2020-1 Yes [id number] 10mg TAKE 1 [facility] 10 mg 2-15 [id number] TABLET BY [facility] tablet 00:00: MOUTH [place] 00 EVERY Medical OTHER DAY Branch CLOPIDOGREL 2020-1 Yes [id number] TAKE 1 [facility] 75 mg 2-15 [id number] TABLET BY [facility] tablet 00:00: MOUTH [place] 00 EVERY DAY Medical Branch PRAVASTATIN 2020-1 Yes [id number] 10mg TAKE 1 [facility] 10 mg 2-15 [id number] TABLET BY [facility] tablet 00:00: MOUTH 00 EVERY Medical OTHER DAY Branch CLOPIDOGREL 2020-1 Yes [id number] TAKE 1 [facility] 75 mg 2-15 [id number] TABLET BY [facility] tablet 00:00: MOUTH [place] 00 EVERY DAY Medical Branch PRAVASTATIN 2020-1 Yes [id number] 10mg TAKE 1 [facility] 10 mg 2-15 [id number] TABLET BY [facility] tablet 00:00: MOUTH [place] 00 EVERY Medical OTHER DAY Branch CLOPIDOGREL 2020-1 Yes [id number] TAKE 1 [facility] 75 mg 2-15 [id number] TABLET BY [facility] tablet 00:00: MOUTH [place] 00 EVERY DAY Medical Branch PRAVASTATIN 2020-1 Yes [id number] 10mg TAKE 1 [facility] 10 mg 2-15 [id number] TABLET BY [facility] tablet 00:00: MOUTH [place] EVERY Medical OTHER DAY Branch CLOPIDOGREL 2020-1 Yes [id number] TAKE 1 [facility] 75 mg 2-15 [id number] TABLET BY [facility] tablet 00:00: MOUTH [place] 00 EVERY DAY Medical Branch PRAVASTATIN 2020-1 Yes [id number] 10mg TAKE 1 [facility] 10 mg 2-15 [id number] TABLET BY [facility] tablet 00:00: MOUTH [place] 00 EVERY Medical OTHER DAY Branch CLOPIDOGREL 2020-1 Yes [id number] TAKE 1 [facility] 75 mg 2-15 [id number] TABLET BY [facility] tablet 00:00: MOUTH [place] 00 EVERY DAY Medical Branch PRAVASTATIN 2020-1 Yes [id number] 10mg TAKE 1 [facility] 10 mg 2-15 [id number] TABLET BY [facility] tablet 00:00: MOUTH [place] 00 EVERY Medical OTHER DAY Branch CLOPIDOGREL 2020-1 Yes [id number] TAKE 1 [facility] 75 mg 2-15 [id number] TABLET BY [facility] tablet 00:00: MOUTH [place] 00 EVERY DAY Medical Branch PRAVASTATIN 2020-1 Yes [id number] 10mg TAKE 1 [facility] 10 mg 2-15 [id number] TABLET BY [facility] tablet 00:00: MOUTH [place] 00 EVERY Medical OTHER DAY Branch CLOPIDOGREL 2020-1 Yes [id number] TAKE 1 [facility] 75 mg 2-15 [id number] TABLET BY [facility] tablet 00:00: MOUTH [place] 00 EVERY DAY Medical Branch PRAVASTATIN 2020-1 Yes [id number] 10mg TAKE 1 [facility] 10 mg 2-15 [id number] TABLET BY [facility] tablet 00:00: MOUTH [place] 00 EVERY Medical OTHER DAY Branch CLOPIDOGREL 2020-1 Yes [id number] TAKE 1 [facility] 75 mg 2-15 [id number] TABLET BY [facility] tablet 00:00: MOUTH [place] 00 EVERY DAY Medical Branch PRAVASTATIN 2020-1 Yes [id number] 10mg TAKE 1 [facility] 10 mg 2-15 [id number] TABLET BY [facility] tablet 00:00: MOUTH [place] 00 EVERY Medical OTHER DAY Branch CLOPIDOGREL 2020-1 Yes [id number] TAKE 1 [facility] 75 mg 2-15 [id number] TABLET BY [facility] tablet 00:00: MOUTH [place] 00 EVERY DAY Medical Branch PRAVASTATIN 2020-1 Yes [id number] 10mg TAKE 1 [facility] 10 mg 2-15 [id number] TABLET BY [facility] tablet 00:00: MOUTH [place] 00 EVERY Medical OTHER DAY Branch CLOPIDOGREL 2020-1 Yes [id number] TAKE 1 [facility] 75 mg 2-15 [id number] TABLET BY [facility] tablet 00:00: MOUTH [place] 00 EVERY DAY Medical Branch PRAVASTATIN 2020-1 Yes [id number] 10mg TAKE 1 [facility] 10 mg 2-15 [id number] TABLET BY [facility] tablet 00:00: MOUTH [place] 00 EVERY Medical OTHER DAY Branch CLOPIDOGREL 2020-1 Yes [id number] TAKE 1 [facility] 75 mg 2-15 [id number] TABLET BY [facility] tablet 00:00: MOUTH [place] 00 EVERY DAY Medical Branch PRAVASTATIN 2020-1 Yes [id number] 10mg TAKE 1 [facility] 10 mg 2-15 [id number] TABLET BY [facility] tablet 00:00: MOUTH [place] 00 EVERY Medical OTHER DAY Branch CLOPIDOGREL 2020-1 Yes [id number] TAKE 1 [facility] 75 mg 2-15 [id number] TABLET BY [facility] tablet 00:00: MOUTH [place] 00 EVERY DAY Medical Branch PRAVASTATIN 2020-1 Yes [id number] 10mg TAKE 1 [facility] 10 mg 2-15 [id number] TABLET BY [facility] tablet 00:00: MOUTH [place] 00 EVERY Medical OTHER DAY Branch CLOPIDOGREL 2020-1 Yes [id number] TAKE 1 [facility] 75 mg 2-15 [id number] TABLET BY [facility] tablet 00:00: MOUTH [place] 00 EVERY DAY Medical Branch PRAVASTATIN 2020-1 Yes [id number] 10mg TAKE 1 [facility] 10 mg 2-15 [id number] TABLET BY [facility] tablet 00:00: MOUTH [place] 00 EVERY Medical OTHER DAY Branch CLOPIDOGREL 2020-1 Yes [id number] TAKE 1 [facility] 75 mg 2-15 [id number] TABLET BY [facility] tablet 00:00: MOUTH [place] 00 EVERY DAY Medical Branch PRAVASTATIN 2020-1 Yes [id number] 10mg TAKE 1 [facility] 10 mg 2-15 [id number] TABLET BY [facility] tablet 00:00: MOUTH [place] 00 EVERY Medical OTHER DAY Branch CLOPIDOGREL 2020-1 Yes [id number] TAKE 1 [facility] 75 mg 2-15 [id number] TABLET BY [facility] tablet 00:00: MOUTH [place] 00 EVERY DAY Medical Branch CLOPIDOGREL 2020-1 Yes [id number] TAKE 1 [facility] 75 mg 2-15 [id number] TABLET BY [facility] tablet 00:00: MOUTH [place] 00 EVERY DAY Medical Branch CLOPIDOGREL 2020-1 Yes [id number] TAKE 1 [facility] 75 mg 2-15 [id number] TABLET BY [facility] tablet 00:00: MOUTH [place] 00 EVERY DAY Medical Branch CLOPIDOGREL 2020-1 Yes [id number] TAKE 1 [facility] 75 mg 2-15 [id number] TABLET BY [facility] tablet 00:00: MOUTH [place] 00 EVERY DAY Medical Branch CLOPIDOGREL 2020-1 Yes [id number] TAKE 1 [facility] 75 mg 2-15 [id number] TABLET BY [facility] tablet 00:00: MOUTH [place] 00 EVERY DAY Medical Branch CLOPIDOGREL 2020-1 Yes [id number] TAKE 1 [facility] 75 mg 2-15 [id number] TABLET BY [facility] tablet 00:00: MOUTH [place] 00 EVERY DAY Medical Branch CLOPIDOGREL 2020-1 Yes [id number] TAKE 1 [facility] 75 mg 2-15 [id number] TABLET BY [facility] tablet 00:00: MOUTH [place] 00 EVERY DAY Medical Branch CLOPIDOGREL 2020-1 Yes [id number] TAKE 1 [facility] 75 mg 2-15 [id number] TABLET BY [facility] tablet 00:00: MOUTH [place] 00 EVERY DAY Medical Branch CLOPIDOGREL 2020-1 Yes [id number] TAKE 1 [facility] 75 mg 2-15 [id number] TABLET BY [facility] tablet 00:00: MOUTH [place] 00 EVERY DAY Medical Branch CLOPIDOGREL 2020-1 Yes [id number] TAKE 1 [facility] 75 mg 2-15 [id number] TABLET BY [facility] tablet 00:00: MOUTH [place] 00 EVERY DAY Medical Branch CLOPIDOGREL 2020-1 Yes [id number] TAKE 1 [facility] 75 mg 2-15 [id number] TABLET BY [facility] of tablet 00:00: [facility] 00 EVERY DAY Medical Branch CLOPIDOGREL 2020-1 Yes [id number] TAKE 1 [facility] 75 mg 2-15 [id number] TABLET BY [facility] of tablet 00:00: MOUTH [place] 00 EVERY DAY Medical Branch CLOPIDOGREL 2020-1 Yes [id number] TAKE 1 [facility] 75 mg 2-15 [id number] TABLET BY [facility] of tablet 00:00: MOUTH [place] 00 EVERY DAY Medical Branch CLOPIDOGREL 2020-1 Yes [id number] TAKE 1 [facility] 75 mg 2-15 [id number] TABLET BY [facility] of tablet 00:00: [facility] 00 EVERY DAY Medical Branch CLOPIDOGREL 2020-1 Yes [id number] TAKE 1 [facility] 75 mg 2-15 [id number] TABLET BY [facility] of tablet 00:00: MOUTH [place] 00 EVERY DAY Medical Branch CLOPIDOGREL 2020-1 Yes [id number] TAKE 1 [facility] 75 mg 2-15 [id number] TABLET BY [facility] of tablet 00:00: MOUTH [place] 00 EVERY DAY Medical Branch CLOPIDOGREL 2020-1 Yes [id number] TAKE 1 [facility] 75 mg 2-15 [id number] TABLET BY [facility] of tablet 00:00: MOUTH [place] 00 EVERY DAY Medical Branch CLOPIDOGREL 2020-1 Yes [id number] TAKE 1 [facility] 75 mg 2-15 [id number] TABLET BY it[facility] of tablet 00:00: [facility] EVERY DAY Medical Branch CLOPIDOGREL 2020-1 2022- No [id number] TAKE 1 [facility] 75 mg 2-15 11-11 [id number] TABLET BY it[facility] of tablet 00:00: 00:00 MOUTH [place] 00 :00 EVERY DAY Medical Branch PRAVASTATIN 2019-09- No [id number] 10mg TAKE 1 [facility] 10 mg 2-15 - [id number] TABLET BY it[facility] of tablet 00:00: 00:00 MOUTH [place] 00 :00 EVERY Medical OTHER DAY Branch PRAVASTATIN 2019-09- No [id number] 10mg TAKE 1 [facility] 10 mg 2-15 - [id number] TABLET BY it[facility] of tablet 00:00: 00:00 MOUTH [place] 00 :00 EVERY Medical OTHER DAY Branch gabapentin 2019-09 Yes [id number] 100mg Take 1 [facility] 100 mg 2-14 [id number] capsule by it[facility] o f capsule 00:00: mouth 3 [place] 00 (three) Medical times Branch daily. gabapentin 2019-09 Yes [id number] 100mg Take 1 [facility] 100 mg 2-14 [id number] capsule by it[facility] o f capsule 00:00: mouth 3 [place] 00 (three) Medical times Branch daily. gabapentin 2019-09 Yes [id number] 100mg Take 1 [facility] 100 mg 2-14 [id number] capsule by it[facility] o f capsule 00:00: mouth 3 [place] 00 (three) Medical times Branch daily. gabapentin 2019-09 Yes [id number] 100mg Take 1 [facility] 100 mg 2-14 [id number] capsule by it[facility] o f capsule 00:00: mouth 3 [place] 00 (three) Medical times Branch daily. gabapentin 2019-09- No [id number] 100mg Take 1 [facility] 100 mg 2-14 - [id number] capsule by [facility] of capsule 00:00: 00:00 mouth 3 [place] 00 :00 (three) Medical times Branch daily. gabapentin 2019-09- No [id number] 100mg Take 1 [facility] 100 mg 2-14 - [id number] capsule by it[facility] of capsule 00:00: 00:00 mouth 3 [place] 00 :00 (three) Medical times Branch daily. gabapentin 2019-09- No [id number] 100mg Take 1 [facility] 100 mg 2-14 -14 [id number] capsule by it[facility] of capsule 00:00: 00:00 mouth 3 [place] 00 :00 (three) Medical times Branch daily. cefUROXime 2019-09- No [id number] 500mg Take 1 [facility] 500 mg 2-10 -18 tablet by it[facility] of tablet 00:00: 05:59 mouth 2 [place] 00 :00 (two) Medical times Branch daily for 7 days. cefUROXime 2019-09- No [id number] 500mg Take 1 [facility] 500 mg 2-10 12-18 tablet by it[facility] of tablet 00:00: 05:59 mouth 2 [place] 00 :00 (two) Medical times Branch daily for 7 days. cefUROXime 2019-09 2020- No [id number] 500mg Take 1 [facility] 500 mg 2-10 12-18 tablet by it[facility] of tablet 00:00: 05:59 mouth 2 [place] 00 :00 (two) Medical times Branch daily for 7 days. cefUROXime 2019-09- No [id number] 500mg Take 1 [facility] 500 mg 2-10 12-18 tablet by it[facility] of tablet 00:00: 05:59 mouth 2 [place] 00 :00 (two) Medical times Branch daily for 7 days. cefUROXime 2019-09- No [id number] 500mg Take 1 [facility] 500 mg 2-10 12-18 tablet by ity of tablet 00:00: 05:59 mouth 2 [place] 00 :00 (two) Medical times Branch daily for 7 days. metoprolol 2019-09 Yes [id number] 25mg Take 1 [facility] nivers succinate 2-09 tablet by ity o f XL 25 mg 24 00:00: mouth 2 [place] tablet 00 (two) Medical times Branch daily. metoprolol 2019- Yes [id number] 25mg Take 1 [facility] nivers succinate 2-09 tablet by ity o f XL 25 mg 24 00:00: mouth 2 [place] [facility] tablet 00 (two) Medical times Branch daily. clopidogreL 2019- Yes [id number] 75mg Take 1 [facility] (PLAVIX) 75 2-09 [id number] tablet by i ty of mg tablet 00:00: mouth [place] 00 daily. Medical Branch pravastatin 2019- Yes [id number] 10mg Take 1 [facility] 10 mg 2-09 [id number] tablet by it[facility] of tablet 00:00: mouth [place] 00 every Medical other day. Branch metoprolol 2019- Yes [id number] 25mg Take 1 U nivers succinate 2-09 tablet by ity o f XL 25 mg 24 00:00: mouth 2 [place] tablet 00 (two) Medical times Branch daily. clopidogreL 2019- Yes [id number] 75mg Take 1 [facility] (PLAVIX) 75 2-09 [id number] tablet by i ty of mg tablet 00:00: mouth [place] 00 daily. Medical Branch pravastatin 2020-1 Yes [id number] 10mg Take 1 [facility] 10 mg 2- [id number] tablet by ity of tablet 00:00: mouth [place] 00 every Medical other day. Branch metoprolol 2020-1 Yes [id number] 25mg Take 1 [facility] nivers succinate 2-09 tablet by ity o f XL 25 mg 24 00:00: mouth 2 [place] [facility] tablet 00 (two) Medical times Branch daily. clopidogreL 2020- Yes [id number] 75mg Take 1 [facility] (PLAVIX) 75 2- [id number] tablet by i ty of mg tablet 00:00: mouth [place] 00 daily. Medical Branch pravastatin 2020- Yes [id number] 10mg Take 1 [facility] 10 mg 2- [id number] tablet by it[facility] of tablet 00:00: mouth [place] 00 every Medical other day. Branch metoprolol 2020- Yes [id number] 25mg Take 1 [facility] nivers succinate 2-09 tablet by ity o f XL 25 mg 24 00:00: mouth 2 [place] [facility] tablet 00 (two) Medical times Branch daily. clopidogreL 2020-1 Yes [id number] 75mg Take 1 [facility] (PLAVIX) 75 2- [id number] tablet by i ty of mg tablet 00:00: mouth [place] 00 daily. Medical Branch pravastatin 2020-1 Yes [id number] 10mg Take 1 [facility] 10 mg 2- 003744 tablet by ity of tablet 00:00: mouth [place] 00 every Medical other day. Branch metoprolol 2020-1 Yes [id number] 25mg Take 1 U nivers succinate 2-09 tablet by ity o f XL 25 mg 24 00:00: mouth 2 [place] tablet 00 (two) Medical times Branch daily. metoprolol 2020-1 Yes [id number] 25mg Take 1 [facility] nivers succinate 2-09 tablet by ity o f XL 25 mg 24 00:00: mouth 2 [place] [facility] tablet 00 (two) Medical times Branch daily. clopidogreL 2020-1 Yes [id number] 75mg Take 1 [facility] (PLAVIX) 75 2-09 [id number] tablet by i ty of mg tablet 00:00: mouth [place] 00 daily. Medical Branch pravastatin 2020-1 Yes [id number] 10mg Take 1 [facility] 10 mg 2-09 [id number] tablet by ity of tablet 00:00: mouth [place] 00 every Medical other day. Branch metoprolol 2020-1 Yes [id number] 25mg Take 1 U nivers succinate 2-09 tablet by ity o f XL 25 mg 24 00:00: mouth 2 [place] tablet 00 (two) Medical times Branch daily. metoprolol 2020-1 Yes [id number] 25mg Take 1 U nivers succinate 2-09 tablet by ity o f XL 25 mg 24 00:00: mouth 2 [place] [facility] tablet 00 (two) Medical times Branch daily. metoprolol 2020-1 Yes [id number] 25mg Take 1 U nivers succinate 2-09 tablet by ity o f XL 25 mg 24 00:00: mouth 2 [place] [facility] tablet 00 (two) Medical times Branch daily. metoprolol 2020-1 Yes [id number] 25mg Take 1 U nivers succinate 2-09 tablet by ity o f XL 25 mg 24 00:00: mouth 2 [place] tablet 00 (two) Medical times Branch daily. metoprolol 2019- Yes [id number] 25mg Take 1 U nivers succinate 2-09 tablet by ity o f XL 25 mg 24 00:00: mouth 2 [place] [facility] tablet 00 (two) Medical times Branch daily. metoprolol 2020- Yes [id number] 25mg Take 1 U nivers succinate 2-09 tablet by ity o f XL 25 mg 24 00:00: mouth 2 [place] [facility] tablet 00 (two) Medical times Branch daily. metoprolol 2019- Yes [id number] 25mg Take 1 U nivers succinate 2-09 tablet by ity o f XL 25 mg 24 00:00: mouth 2 [place] [facility] tablet 00 (two) Medical times Branch daily. metoprolol 2020-1 Yes [id number] 25mg Take 1 U nivers succinate 2-09 tablet by ity o f XL 25 mg 24 00:00: mouth 2 [place] tablet 00 (two) Medical times Branch daily. metoprolol 2020-1 Yes [id number] 25mg Take 1 U nivers succinate 2-09 tablet by ity o f XL 25 mg 24 00:00: mouth 2 [place] tablet 00 (two) Medical times Branch daily. metoprolol 2020-1 Yes [id number] 25mg Take 1 U nivers succinate 2-09 tablet by ity o f XL 25 mg 24 00:00: mouth 2 [place] tablet 00 (two) Medical times Branch daily. metoprolol 2020- Yes [id number] 25mg Take 1 U nivers succinate 2-09 tablet by ity o f XL 25 mg 24 00:00: mouth 2 [place] tablet 00 (two) Medical times Branch daily. metoprolol 2020-1 Yes [id number] 25mg Take 1 U nivers succinate 2-09 tablet by ity o f XL 25 mg 24 00:00: mouth 2 [place] tablet 00 (two) Medical times Branch daily. metoprolol 2019- Yes [id number] 25mg Take 1 U nivers succinate 2-09 tablet by ity o f XL 25 mg 24 00:00: mouth 2 [place] tablet 00 (two) Medical times Branch daily. metoprolol 2020- Yes [id number] 25mg Take 1 U nivers succinate 2-09 tablet by ity o f XL 25 mg 24 00:00: mouth 2 [place] tablet 00 (two) Medical times Branch daily. metoprolol 2019- Yes [id number] 25mg Take 1 U nivers succinate 2-09 tablet by ity o f XL 25 mg 24 00:00: mouth 2 [place] tablet 00 (two) Medical times Branch daily. metoprolol 2019- Yes [id number] 25mg Take 1 U nivers succinate 2-09 tablet by ity o f XL 25 mg 24 00:00: mouth 2 [place] [facility] tablet 00 (two) Medical times Branch daily. metoprolol 2019- Yes [id number] 25mg Take 1 U nivers succinate 2-09 tablet by ity o f XL 25 mg 24 00:00: mouth 2 [place] hr tablet 00 (two) Medical times Branch daily. metoprolol 2019- Yes [id number] 25mg Take 1 U nivers succinate 2-09 tablet by ity o f XL 25 mg 24 00:00: mouth 2 [place] [facility] tablet 00 (two) Medical times Branch daily. metoprolol 2020-1 Yes [id number] 25mg Take 1 U nivers succinate 2-09 tablet by ity o f XL 25 mg 24 00:00: mouth 2 [place] tablet 00 (two) Medical times Branch daily. metoprolol 2020-1 Yes [id number] 25mg Take 1 U nivers succinate 2-09 tablet by ity o f XL 25 mg 24 00:00: mouth 2 [place] [facility] tablet 00 (two) Medical times Branch daily. metoprolol 2019-09 Yes [id number] 25mg Take 1 U nivers succinate 2-09 tablet by ity o f XL 25 mg 24 00:00: mouth 2 [place] [facility] tablet 00 (two) Medical times Branch daily. metoprolol 2019-09 Yes [id number] 25mg Take 1 U nivers succinate 2-09 tablet by ity o f XL 25 mg 24 00:00: mouth 2 [place] [facility] tablet 00 (two) Medical times Branch daily. metoprolol 2019-09 Yes [id number] 25mg Take 1 U nivers succinate 2-09 tablet by ity o f XL 25 mg 24 00:00: mouth 2 [place] hr tablet 00 (two) Medical times Branch daily. metoprolol 2019-09 Yes [id number] 25mg Take 1 U nivers succinate 2-09 tablet by ity o f XL 25 mg 24 00:00: mouth 2 [place] hr tablet 00 (two) Medical times Branch daily. metoprolol 2019-09 Yes [id number] 25mg Take 1 U nivers succinate 2-09 tablet by ity o f XL 25 mg 24 00:00: mouth 2 [place] hr tablet 00 (two) Medical times Branch daily. metoprolol 2019-09 Yes [id number] 25mg Take 1 U nivers succinate 2-09 tablet by ity o f XL 25 mg 24 00:00: mouth 2 [place] hr tablet 00 (two) Medical times Branch daily. metoprolol 2019-09 Yes [id number] 25mg Take 1 U nivers succinate 2-09 tablet by ity o f XL 25 mg 24 00:00: mouth 2 [place] hr tablet 00 (two) Medical times Branch daily. metoprolol 2019-09 Yes [id number] 25mg Take 1 U nivers succinate 2-09 tablet by ity o f XL 25 mg 24 00:00: mouth 2 [place] hr tablet 00 (two) Medical times Branch daily. metoprolol 2019-09- No [id number] 25mg Take 1 [facility] succinate 2-09 05-21 tablet by ity of XL 25 mg 24 00:00: 00:00 mouth 2 [place] hr tablet 00 :00 (two) Medical times Branch daily. clopidogreL 2019-09- No [id number] 75mg Take 1 [facility] (PLAVIX) 75 2- 12-15 [id number] tablet by ity of mg tablet 00:00: 00:00 mouth [place] 00 :00 daily. Medical Branch pravastatin 2019-09 2020- No [id number] 10mg Take 1 [facility] 10 mg 2- 12-15 [id number] tablet by ity of tablet 00:00: 00:00 mouth [place] 00 :00 every Medical other day. Branch tiZANidine 2019-09 Yes [id number] 4mg Take 1-2 [facility] 4 mg tablet 2-07 [id number] tablets by ity of 00:00: mouth [place] 00 every 8 Medical (eight) Branch hours as needed (muscle pain or spasm). metformin 2019-09 Yes [id number] 500mg Take 1 U nivers ER 500 mg 2-07 tablet by ity o f 24 hr 00:00: mouth 2 [place] tablet 00 (two) Medical times Branch daily with meals. triamterene 2019-09 Yes [id number] 1{tbl} Take 1 [facility] -hydrochlor 2-07 tablet by ity of othiazid 00:00: mouth [place] 37.5-25 mg 00 daily. Medical tablet Branch tiZANidine 2019-09 Yes [id number] 4mg Take 1-2 [facility] 4 mg tablet 2-07 [id number] tablets by ity of 00:00: mouth [place] 00 every 8 Medical (eight) Branch hours as needed (muscle pain or spasm). metformin 2019-09 Yes [id number] 500mg Take 1 U nivers ER 500 mg 2-07 tablet by ity o f 24 hr 00:00: mouth 2 [place] tablet 00 (two) Medical times Branch daily with meals. triamterene 2019-09 Yes [id number] 1{tbl} Take 1 [facility] -hydrochlor 2-07 tablet by ity of othiazid 00:00: mouth [place] 37.5-25 mg 00 daily. Medical tablet Branch tiZANidine 2019-09 Yes [id number] 4mg Take 1-2 [facility] 4 mg tablet 2-07 [id number] tablets by ity of 00:00: mouth [place] 00 every 8 Medical (eight) Branch hours as needed (muscle pain or spasm). metformin 2019-09 Yes [id number] 500mg Take 1 U nivers ER 500 mg 2-07 tablet by ity o f 24 hr 00:00: mouth 2 [place] tablet 00 (two) Medical times Branch daily with meals. triamterene 2019-09 Yes [id number] 1{tbl} Take 1 [facility] -hydrochlor 2-07 tablet by ity of othiazid 00:00: mouth [place] 37.5-25 mg 00 daily. Medical tablet Branch tiZANidine 2019-09 Yes [id number] 4mg Take 1-2 [facility] 4 mg tablet 2-07 [id number] tablets by ity of 00:00: mouth [place] 00 every 8 Medical (eight) Branch hours as needed (muscle pain or spasm). metformin 2019-09 Yes [id number] 500mg Take 1 U nivers ER 500 mg 2-07 tablet by ity o f 24 hr 00:00: mouth 2 [place] tablet 00 (two) Medical times Branch daily with meals. triamterene 2019-09 Yes [id number] 1{tbl} Take 1 [facility] -hydrochlor 2-07 tablet by ity of othiazid 00:00: mouth [place] 37.5-25 mg 00 daily. Medical tablet Branch tiZANidine 2019-09 Yes [id number] 4mg Take 1-2 [facility] 4 mg tablet 2-07 [id number] tablets by ity of 00:00: mouth [place] 00 every 8 Medical (eight) Branch hours as needed (muscle pain or spasm). metformin 2019-09 Yes [id number] 500mg Take 1 U nivers ER 500 mg 2-07 tablet by ity o f 24 hr 00:00: mouth 2 [place] tablet 00 (two) Medical times Branch daily with meals. triamterene 2019-09 Yes [id number] 1{tbl} Take 1 [facility] -hydrochlor 2-07 tablet by ity of othiazid 00:00: mouth [place] 37.5-25 mg 00 daily. Medical tablet Branch tiZANidine 2019-09 Yes [id number] 4mg Take 1-2 [facility] 4 mg tablet 2-07 [id number] tablets by ity of 00:00: mouth [place] 00 every 8 Medical (eight) Branch hours as needed (muscle pain or spasm). metformin 2019-09 Yes [id number] 500mg Take 1 U nivers ER 500 mg 2-07 tablet by ity o f 24 hr 00:00: mouth 2 [place] tablet 00 (two) Medical times Branch daily with meals. triamterene 2019-09 Yes [id number] 1{tbl} Take 1 [facility] -hydrochlor 2-07 tablet by ity of othiazid 00:00: mouth [place] 37.5-25 mg 00 daily. Medical tablet Branch tiZANidine 2019-09 Yes [id number] 4mg Take 1-2 [facility] 4 mg tablet 2-07 [id number] tablets by ity of 00:00: mouth [place] 00 every 8 Medical (eight) Branch hours as needed (muscle pain or spasm). metformin 2019-09 Yes [id number] 500mg Take 1 U nivers ER 500 mg 2-07 tablet by ity o f 24 hr 00:00: mouth 2 [place] tablet 00 (two) Medical times Branch daily with meals. triamterene 2019-09 Yes [id number] 1{tbl} Take 1 [facility] -hydrochlor 2-07 tablet by ity of othiazid 00:00: mouth [place] 37.5-25 mg 00 daily. Medical tablet Branch tiZANidine 2019-09 Yes [id number] 4mg Take 1-2 [facility] 4 mg tablet 2-07 [id number] tablets by ity of 00:00: mouth [place] 00 every 8 Medical (eight) Branch hours as needed (muscle pain or spasm). metformin 2019-09 Yes [id number] 500mg Take 1 U nivers ER 500 mg 2-07 tablet by ity o f 24 hr 00:00: mouth 2 [place] tablet 00 (two) Medical times Branch daily with meals. triamterene 2019-09 Yes [id number] 1{tbl} Take 1 [facility] -hydrochlor 2-07 tablet by ity of othiazid 00:00: mouth [place] 37.5-25 mg 00 daily. Medical tablet Branch tiZANidine 2019-09 Yes [id number] 4mg Take 1-2 [facility] 4 mg tablet 2-07 [id number] tablets by ity of 00:00: mouth [place] 00 every 8 Medical (eight) Branch hours as needed (muscle pain or spasm). metformin 2019-09 Yes [id number] 500mg Take 1 U nivers ER 500 mg 2-07 tablet by ity o f 24 hr 00:00: mouth 2 [place] tablet 00 (two) Medical times Branch daily with meals. triamterene 2019-09 Yes [id number] 1{tbl} Take 1 [facility] -hydrochlor 2-07 tablet by ity of othiazid 00:00: mouth [place] 37.5-25 mg 00 daily. Medical tablet Branch tiZANidine 2019-09 Yes [id number] 4mg Take 1-2 [facility] 4 mg tablet 2-07 [id number] tablets by [facility] of 00:00: mouth [place] 00 every 8 Medical (eight) Branch hours as needed (muscle pain or spasm). metformin 2019-09 Yes [id number] 500mg Take 1 [facility] ER 500 mg 2-07 tablet by [facility] o f 24 hr 00:00: mouth 2 [place] tablet 00 (two) Medical times Branch daily with meals. triamterene 2019-09 Yes [id number] 1{tbl} Take 1 [facility] -hydrochlor 2-07 tablet by [facility] of othiazid 00:00: mouth [place] 37.5-25 mg 00 daily. Medical tablet Branch tiZANidine 2019-09 Yes [id number] 4mg Take 1-2 [facility] 4 mg tablet 2-07 [id number] tablets by [facility] of 00:00: mouth [place] 00 every 8 Medical (eight) Branch hours as needed (muscle pain or spasm). metformin 2019-09 Yes [id number] 500mg Take 1 [facility] ER 500 mg 2-07 tablet by [facility] o f 24 hr 00:00: mouth 2 [place] tablet 00 (two) Medical times Branch daily with meals. triamterene 2019-09 Yes [id number] 1{tbl} Take 1 [facility] -hydrochlor 2-07 tablet by [facility] of othiazid 00:00: mouth [place] 37.5-25 mg 00 daily. Medical tablet Branch tiZANidine 2019-09 Yes [id number] 4mg Take 1-2 [facility] 4 mg tablet 2-07 [id number] tablets by [facility] of 00:00: mouth [place] 00 every 8 Medical (eight) Branch hours as needed (muscle pain or spasm). metformin 2019-09 Yes [id number] 500mg Take 1 [facility] 500 mg 2-07 tablet by [facility] o f 24 hr 00:00: mouth 2 [place] tablet 00 (two) Medical times Branch daily with meals. triamterene 2019-09 Yes [id number] 1{tbl} Take 1 [facility] -hydrochlor 2-07 tablet by [facility] of othiazid 00:00: mouth [place] 37.5-25 mg 00 daily. Medical tablet Branch tiZANidine 2019-09 Yes [id number] 4mg Take 1-2 [facility] 4 mg tablet 2-07 [id number] tablets by [facility] of 00:00: mouth [place] 00 every 8 Medical (eight) Branch hours as needed (muscle pain or spasm). metformin 2019-09 Yes [id number] 500mg Take 1 [facility] 500 mg 2-07 tablet by [facility] o f 24 hr 00:00: mouth 2 [place] tablet 00 (two) Medical times Branch daily with meals. triamterene 2019-09 Yes [id number] 1{tbl} Take 1 [facility] -hydrochlor 2-07 tablet by [facility] of othiazid 00:00: mouth [place] 37.5-25 mg 00 daily. Medical tablet Branch tiZANidine 2019-09 Yes [id number] 4mg Take 1-2 [facility] 4 mg tablet 2-07 [id number] tablets by [facility] of 00:00: mouth [place] 00 every 8 Medical (eight) Branch hours as needed (muscle pain or spasm). metformin 2019-09 Yes [id number] 500mg Take 1 [facility] 500 mg 2-07 tablet by [facility] o f 24 hr 00:00: mouth 2 [place] tablet 00 (two) Medical times Branch daily with meals. triamterene 2019-09 Yes [id number] 1{tbl} Take 1 [facility] -hydrochlor 2-07 tablet by [facility] of othiazid 00:00: mouth [place] 37.5-25 mg 00 daily. Medical tablet Branch tiZANidine 2019-09 Yes [id number] 4mg Take 1-2 [facility] 4 mg tablet 2-07 [id number] tablets by [facility] of 00:00: mouth [place] 00 every 8 Medical (eight) Branch hours as needed (muscle pain or spasm). metformin 2019-09 Yes [id number] 500mg Take 1 [facility] 500 mg 2-07 tablet by [facility] o f 24 hr 00:00: mouth 2 [place] tablet 00 (two) Medical times Branch daily with meals. triamterene 2019-09 Yes [id number] 1{tbl} Take 1 [facility] -hydrochlor 2-07 tablet by [facility] of othiazid 00:00: mouth [place] 37.5-25 mg 00 daily. Medical tablet Branch tiZANidine 2019-09 Yes [id number] 4mg Take 1-2 [facility] 4 mg tablet 2-07 [id number] tablets by [facility] of 00:00: mouth [place] 00 every 8 Medical (eight) Branch hours as needed (muscle pain or spasm). metformin 2019-09 Yes [id number] 500mg Take 1 [facility] 500 mg 2-07 tablet by [facility] o f 24 hr 00:00: mouth 2 [place] tablet 00 (two) Medical times Branch daily with meals. triamterene 2019-09 Yes [id number] 1{tbl} Take 1 [facility] -hydrochlor 2-07 tablet by [facility] of othiazid 00:00: mouth [place] 37.5-25 mg 00 daily. Medical tablet Branch tiZANidine 2019-09 Yes [id number] 4mg Take 1-2 [facility] 4 mg tablet 2-07 [id number] tablets by [facility] of 00:00: mouth [place] 00 every 8 Medical (eight) Branch hours as needed (muscle pain or spasm). metformin 2019-09 Yes [id number] 500mg Take 1 [facility] 500 mg 2-07 tablet by [facility] o f 24 hr 00:00: mouth 2 [place] tablet 00 (two) Medical times Branch daily with meals. triamterene 2019-09 Yes [id number] 1{tbl} Take 1 [facility] -hydrochlor 2-07 tablet by [facility] of othiazid 00:00: mouth [place] 37.5-25 mg 00 daily. Medical tablet Branch tiZANidine 2019-09 Yes [id number] 4mg Take 1-2 [facility] 4 mg tablet 2-07 [id number] tablets by [facility] of 00:00: mouth [place] 00 every 8 Medical (eight) Branch hours as needed (muscle pain or spasm). metformin 2019-09 Yes [id number] 500mg Take 1 [facility] 500 mg 2-07 tablet by [facility] o f 24 hr 00:00: mouth 2 [place] tablet 00 (two) Medical times Branch daily with meals. triamterene 2019-09 Yes [id number] 1{tbl} Take 1 [facility] -hydrochlor 2-07 tablet by [facility] of othiazid 00:00: mouth [place] 37.5-25 mg 00 daily. Medical tablet Branch tiZANidine 2019-09 Yes [id number] 4mg Take 1-2 [facility] 4 mg tablet 2-07 [id number] tablets by [facility] of 00:00: mouth [place] 00 every 8 Medical (eight) Branch hours as needed (muscle pain or spasm). metformin 2019-09 Yes [id number] 500mg Take 1 [facility] 500 mg 2-07 tablet by [facility] o f 24 hr 00:00: mouth 2 [place] tablet 00 (two) Medical times Branch daily with meals. triamterene 2019-09 Yes [id number] 1{tbl} Take 1 [facility] -hydrochlor 2-07 tablet by [facility] of othiazid 00:00: mouth [place] 37.5-25 mg 00 daily. Medical tablet Branch tiZANidine 2019-09 Yes [id number] 4mg Take 1-2 [facility] 4 mg tablet 2-07 [id number] tablets by [facility] of 00:00: mouth [place] 00 every 8 Medical (eight) Branch hours as needed (muscle pain or spasm). metformin 2019-09 Yes [id number] 500mg Take 1 [facility] 500 mg 2-07 tablet by [facility] o f 24 hr 00:00: mouth 2 [place] tablet 00 (two) Medical times Branch daily with meals. triamterene 2019-09 Yes [id number] 1{tbl} Take 1 [facility] -hydrochlor 2-07 tablet by [facility] of othiazid 00:00: mouth [place] 37.5-25 mg 00 daily. Medical tablet Branch tiZANidine 2019-09 Yes [id number] 4mg Take 1-2 [facility] 4 mg tablet 2-07 [id number] tablets by [facility] of 00:00: mouth [place] 00 every 8 Medical (eight) Branch hours as needed (muscle pain or spasm). metformin 2019-09 Yes [id number] 500mg Take 1 [facility] 500 mg 2-07 tablet by [facility] o f 24 hr 00:00: mouth 2 [place] tablet 00 (two) Medical times Branch daily with meals. triamterene 2019-09 Yes [id number] 1{tbl} Take 1 [facility] -hydrochlor 2-07 tablet by [facility] of othiazid 00:00: mouth [place] 37.5-25 mg 00 daily. Medical tablet Branch tiZANidine 2019-09 Yes [id number] 4mg Take 1-2 [facility] 4 mg tablet 2-07 [id number] tablets by [facility] of 00:00: mouth [place] 00 every 8 Medical (eight) Branch hours as needed (muscle pain or spasm). metformin 2019-09 Yes [id number] 500mg Take 1 [facility] 500 mg 2-07 tablet by [facility] o f 24 hr 00:00: mouth 2 [place] tablet 00 (two) Medical times Branch daily with meals. triamterene 2019-09 Yes [id number] 1{tbl} Take 1 [facility] -hydrochlor 2-07 tablet by [facility] of othiazid 00:00: mouth [place] 37.5-25 mg 00 daily. Medical tablet Branch tiZANidine 2019-09 Yes [id number] 4mg Take 1-2 [facility] 4 mg tablet 2-07 [id number] tablets by [facility] of 00:00: mouth [place] 00 every 8 Medical (eight) Branch hours as needed (muscle pain or spasm). metformin 2019-09 Yes [id number] 500mg Take 1 [facility] 500 mg 2-07 tablet by [facility] o f 24 hr 00:00: mouth 2 [place] tablet 00 (two) Medical times Branch daily with meals. triamterene 2019-09 Yes [id number] 1{tbl} Take 1 [facility] -hydrochlor 2-07 tablet by [facility] of othiazid 00:00: mouth [place] 37.5-25 mg 00 daily. Medical tablet Branch tiZANidine 2019-09 Yes [id number] 4mg Take 1-2 [facility] 4 mg tablet 2-07 [id number] tablets by [facility] of 00:00: mouth [place] 00 every 8 Medical (eight) Branch hours as needed (muscle pain or spasm). metformin 2019-09 Yes [id number] 500mg Take 1 [facility] 500 mg 2-07 tablet by [facility] o f 24 hr 00:00: mouth 2 [place] tablet 00 (two) Medical times Branch daily with meals. triamterene 2019-09 Yes [id number] 1{tbl} Take 1 [facility] -hydrochlor 2-07 tablet by [facility] of othiazid 00:00: mouth [place] 37.5-25 mg 00 daily. Medical tablet Branch tiZANidine 2019-09 Yes [id number] 4mg Take 1-2 [facility] 4 mg tablet 2-07 [id number] tablets by [facility] of 00:00: mouth [place] 00 every 8 Medical (eight) Branch hours as needed (muscle pain or spasm). metformin 2019-09 Yes [id number] 500mg Take 1 [facility] 500 mg 2-07 tablet by [facility] o f 24 hr 00:00: mouth 2 [place] tablet 00 (two) Medical times Branch daily with meals. triamterene 2019-09 Yes [id number] 1{tbl} Take 1 [facility] -hydrochlor 2-07 tablet by [facility]y of othiazid 00:00: mouth [place] 37.5-25 mg 00 daily. Medical tablet Branch tiZANidine 2019-09 Yes [id number] 4mg Take 1-2 [facility] 4 mg tablet 2-07 [id number] tablets by [facility] of 00:00: mouth [place] 00 every 8 Medical (eight) Branch hours as needed (muscle pain or spasm). metformin 2019-09 Yes [id number] 500mg Take 1 [facility] 500 mg 2-07 tablet by [facility] o f 24 hr 00:00: mouth 2 [place] tablet 00 (two) Medical times Branch daily with meals. triamterene 2019-09 Yes [id number] 1{tbl} Take 1 [facility] -hydrochlor 2-07 tablet by [facility] of othiazid 00:00: mouth [place] 37.5-25 mg 00 daily. Medical tablet Branch tiZANidine 2019-09 Yes [id number] 4mg Take 1-2 [facility] 4 mg tablet 2-07 [id number] tablets by [facility] of 00:00: mouth [place] 00 every 8 Medical (eight) Branch hours as needed (muscle pain or spasm). metformin 2019-09 Yes [id number] 500mg Take 1 [facility] 500 mg 2-07 tablet by [facility] o f 24 hr 00:00: mouth 2 [place] tablet 00 (two) Medical times Branch daily with meals. triamterene 2019-09 Yes [id number] 1{tbl} Take 1 [facility] -hydrochlor 2-07 tablet by [facility] of othiazid 00:00: mouth [place] 37.5-25 mg 00 daily. Medical tablet Branch tiZANidine 2019-09 Yes [id number] 4mg Take 1-2 [facility] 4 mg tablet 2-07 [id number] tablets by [facility] of 00:00: mouth [place] 00 every 8 Medical (eight) Branch hours as needed (muscle pain or spasm). metformin 2019-09 Yes [id number] 500mg Take 1 [facility] 500 mg 2-07 tablet by [facility] o f 24 hr 00:00: mouth 2 [place] tablet 00 (two) Medical times Branch daily with meals. triamterene 2019-09 Yes [id number] 1{tbl} Take 1 [facility] -hydrochlor 2-07 tablet by [facility]y of othiazid 00:00: mouth [place] 37.5-25 mg 00 daily. Medical tablet Branch tiZANidine 2019-09 Yes [id number] 4mg Take 1-2 [facility] 4 mg tablet 2-07 [id number] tablets by [facility] of 00:00: mouth [place] 00 every 8 Medical (eight) Branch hours as needed (muscle pain or spasm). metformin 2019-09 Yes [id number] 500mg Take 1 [facility] 500 mg 2-07 tablet by [facility] o f 24 hr 00:00: mouth 2 [place] tablet 00 (two) Medical times Branch daily with meals. triamterene 2019-09 Yes [id number] 1{tbl} Take 1 [facility] -hydrochlor 2-07 tablet by [facility] of othiazid 00:00: mouth [place] 37.5-25 mg 00 daily. Medical tablet Branch tiZANidine 2019-09 Yes [id number] 4mg Take 1-2 [facility] 4 mg tablet 2-07 [id number] tablets by [facility] of 00:00: mouth [place] 00 every 8 Medical (eight) Branch hours as needed (muscle pain or spasm). metformin 2019-09 Yes [id number] 500mg Take 1 [facility] 500 mg 2-07 tablet by [facility] o f 24 hr 00:00: mouth 2 [place] tablet 00 (two) Medical times Branch daily with meals. triamterene 2019-09 Yes [id number] 1{tbl} Take 1 [facility] -hydrochlor 2-07 tablet by [facility]y of othiazid 00:00: mouth [place] 37.5-25 mg 00 daily. Medical tablet Branch tiZANidine 2019-09 Yes [id number] 4mg Take 1-2 [facility] 4 mg tablet 2-07 [id number] tablets by [facility] of 00:00: mouth [place] 00 every 8 Medical (eight) Branch hours as needed (muscle pain or spasm). metformin 2019-09 Yes [id number] 500mg Take 1 [facility] 500 mg 2-07 tablet by [facility] o f 24 hr 00:00: mouth 2 [place] tablet 00 (two) Medical times Branch daily with meals. triamterene 2019-09 Yes [id number] 1{tbl} Take 1 [facility] -hydrochlor 2-07 tablet by [facility] of othiazid 00:00: mouth [place] 37.5-25 mg 00 daily. Medical tablet Branch tiZANidine 2019-09 Yes [id number] 4mg Take 1-2 [facility] 4 mg tablet 2-07 [id number] tablets by [facility] of 00:00: mouth [place] 00 every 8 Medical (eight) Branch hours as needed (muscle pain or spasm). metformin 2019-09 Yes [id number] 500mg Take 1 [facility] 500 mg 2-07 tablet by [facility] o f 24 hr 00:00: mouth 2 [place] tablet 00 (two) Medical times Branch daily with meals. triamterene 2019-09 Yes [id number] 1{tbl} Take 1 [facility] -hydrochlor 2-07 tablet by [facility]y of othiazid 00:00: mouth [place] 37.5-25 mg 00 daily. Medical tablet Branch tiZANidine 2019-09 Yes [id number] 4mg Take 1-2 [facility] 4 mg tablet 2-07 [id number] tablets by [facility] of 00:00: mouth [place] 00 every 8 Medical (eight) Branch hours as needed (muscle pain or spasm). metformin 2019-09 Yes [id number] 500mg Take 1 [facility] 500 mg 2-07 tablet by [facility] o f 24 hr 00:00: mouth 2 [place] tablet 00 (two) Medical times Branch daily with meals. triamterene 2019-09 Yes [id number] 1{tbl} Take 1 [facility] -hydrochlor 2-07 tablet by [facility]y of othiazid 00:00: mouth [place] 37.5-25 mg 00 daily. Medical tablet Branch tiZANidine 2019-09 Yes [id number] 4mg Take 1-2 [facility] 4 mg tablet 2-07 [id number] tablets by [facility] of 00:00: mouth [place] 00 every 8 Medical (eight) Branch hours as needed (muscle pain or spasm). metformin 2019-09 Yes [id number] 500mg Take 1 [facility] 500 mg 2-07 tablet by [facility] o f 24 hr 00:00: mouth 2 [place] tablet 00 (two) Medical times Branch daily with meals. triamterene 2019-09 Yes [id number] 1{tbl} Take 1 [facility] -hydrochlor 2-07 tablet by ity of othiazid 00:00: mouth [place] 37.5-25 mg 00 daily. Medical tablet Branch tiZANidine 2019-09 Yes [id number] 4mg Take 1-2 [facility] 4 mg tablet 2-07 [id number] tablets by [facility] of 00:00: mouth [place] 00 every 8 Medical (eight) Branch hours as needed (muscle pain or spasm). triamterene 2019-09 Yes [id number] 1{tbl} Take 1 [facility] -hydrochlor 2-07 tablet by ity of othiazid 00:00: mouth [place] 37.5-25 mg 00 daily. Medical tablet Branch tiZANidine 2019-09 Yes [id number] 4mg Take 1-2 [facility] 4 mg tablet 2-07 [id number] tablets by [facility] of 00:00: mouth [place] 00 every 8 Medical (eight) Branch hours as needed (muscle pain or spasm). triamterene 2019- Yes [id number] 1{tbl} Take 1 [facility] -hydrochlor 2-07 tablet by ity of othiazid 00:00: mouth [place] 37.5-25 mg 00 daily. Medical tablet Branch tiZANidine 2019- Yes [id number] 4mg Take 1-2 [facility] 4 mg tablet 2-07 [id number] tablets by [facility] of 00:00: mouth [place] 00 every 8 Medical (eight) Branch hours as needed (muscle pain or spasm). triamterene 2019- Yes [id number] 1{tbl} Take 1 [facility] -hydrochlor 2-07 tablet by ity of othiazid 00:00: mouth [place] 37.5-25 mg 00 daily. Medical tablet Branch tiZANidine 2019- Yes [id number] 4mg Take 1-2 [facility] 4 mg tablet 2-07 [id number] tablets by [facility] of 00:00: mouth [place] 00 every 8 Medical (eight) Branch hours as needed (muscle pain or spasm). triamterene 2019- Yes [id number] 1{tbl} Take 1 [facility] -hydrochlor 2-07 tablet by [facility]y of othiazid 00:00: mouth [place] 37.5-25 mg 00 daily. Medical tablet Branch tiZANidine 2019- Yes [id number] 4mg Take 1-2 [facility] 4 mg tablet 2-07 [id number] tablets by [facility] of 00:00: mouth [place] 00 every 8 Medical (eight) Branch hours as needed (muscle pain or spasm). triamterene 2019- Yes [id number] 1{tbl} Take 1 [facility] -hydrochlor 2-07 tablet by ity of othiazid 00:00: mouth [place] 37.5-25 mg 00 daily. Medical tablet Branch tiZANidine 2019- Yes [id number] 4mg Take 1-2 [facility] 4 mg tablet 2-07 [id number] tablets by [facility] of 00:00: mouth [place] 00 every 8 Medical (eight) Branch hours as needed (muscle pain or spasm). triamterene 2019- Yes [id number] 1{tbl} Take 1 [facility] -hydrochlor 2-07 tablet by ity of othiazid 00:00: mouth [place] 37.5-25 mg 00 daily. Medical tablet Branch tiZANidine 2019- Yes [id number] 4mg Take 1-2 [facility] 4 mg tablet 2-07 [id number] tablets by [facility] of 00:00: mouth [place] 00 every 8 Medical (eight) Branch hours as needed (muscle pain or spasm). triamterene 2019- Yes [id number] 1{tbl} Take 1 [facility] -hydrochlor 2-07 tablet by ity of othiazid 00:00: mouth [place] 37.5-25 mg 00 daily. Medical tablet Branch tiZANidine 2019- Yes [id number] 4mg Take 1-2 [facility] 4 mg tablet 2-07 [id number] tablets by [facility] of 00:00: mouth [place] 00 every 8 Medical (eight) Branch hours as needed (muscle pain or spasm). triamterene 2019- Yes [id number] 1{tbl} Take 1 [facility] -hydrochlor 2-07 tablet by ity of othiazid 00:00: mouth [place] 37.5-25 mg 00 daily. Medical tablet Branch tiZANidine 2019- Yes [id number] 4mg Take 1-2 [facility] 4 mg tablet 2-07 [id number] tablets by [facility] of 00:00: mouth [place] 00 every 8 Medical (eight) Branch hours as needed (muscle pain or spasm). tiZANidine 2019- Yes [id number] 4mg Take 1-2 [facility] 4 mg tablet 2-07 [id number] tablets by [facility] of 00:00: mouth [place] 00 every 8 Medical (eight) Branch hours as needed (muscle pain or spasm). tiZANidine 2019- Yes [id number] 4mg Take 1-2 [facility] 4 mg tablet 2-07 [id number] tablets by [facility] of 00:00: mouth [place] 00 every 8 Medical (eight) Branch hours as needed (muscle pain or spasm). tiZANidine 2019- Yes [id number] 4mg Take 1-2 [facility] 4 mg tablet 2-07 [id number] tablets by [facility] of 00:00: mouth [place] 00 every 8 Medical (eight) Branch hours as needed (muscle pain or spasm). tiZANidine 2019- Yes [id number] 4mg Take 1-2 [facility] 4 mg tablet 2-07 [id number] tablets by [facility] of 00:00: mouth [place] 00 every 8 Medical (eight) Branch hours as needed (muscle pain or spasm). tiZANidine 2019-09 Yes [id number] 4mg Take 1-2 [facility] 4 mg tablet 2- [id number] tablets by [facility] of 00:00: mouth [place] 00 every 8 Medical (eight) Branch hours as needed (muscle pain or spasm). tiZANidine 2019-09 Yes [id number] 4mg Take 1-2 [facility] 4 mg tablet 2- [id number] tablets by ity of 00:00: mouth [place] 00 every 8 Medical (eight) Branch hours as needed (muscle pain or spasm). tiZANidine 2019-09 Yes [id number] 4mg Take 1-2 [facility] 4 mg tablet 2- [id number] tablets by [facility]y of 00:00: mouth [place] 00 every 8 Medical (eight) Branch hours as needed (muscle pain or spasm). tiZANidine 2019-09 Yes [id number] 4mg Take 1-2 [facility] 4 mg tablet 2- [id number] tablets by [facility]y of 00:00: mouth [place] 00 every 8 Medical (eight) Branch hours as needed (muscle pain or spasm). tiZANidine 2019-09 Yes [id number] 4mg Take 1-2 [facility] 4 mg tablet 2- [id number] tablets by [facility]y of 00:00: mouth [place] 00 every 8 Medical (eight) Branch hours as needed (muscle pain or spasm). tiZANidine 2019-09 Yes [id number] 4mg Take 1-2 [facility] 4 mg tablet 2- [id number] tablets by [facility] of 00:00: mouth [place] 00 every 8 Medical (eight) Branch hours as needed (muscle pain or spasm). tiZANidine 2019-09 Yes [id number] 4mg Take 1-2 [facility] 4 mg tablet 2- [id number] tablets by [facility]y of 00:00: mouth [place] 00 every 8 Medical (eight) Branch hours as needed (muscle pain or spasm). tiZANidine 2019-09 Yes [id number] 4mg Take 1-2 [facility] 4 mg tablet 2-07 [id number] tablets by [facility] of 00:00: mouth [place] 00 every 8 Medical (eight) Branch hours as needed (muscle pain or spasm). tiZANidine 2019-09 Yes [id number] 4mg Take 1-2 [facility] 4 mg tablet 2- [id number] tablets by [facility]y of 00:00: mouth [place] 00 every 8 Medical (eight) Branch hours as needed (muscle pain or spasm). tiZANidine 2019-09 Yes [id number] 4mg Take 1-2 [facility] 4 mg tablet 2- [id number] tablets by [facility]y of 00:00: mouth [place] 00 every 8 Medical (eight) Branch hours as needed (muscle pain or spasm). tiZANidine 2019-09 Yes [id number] 4mg Take 1-2 [facility] 4 mg tablet 2- [id number] tablets by ity of 00:00: mouth [place] 00 every 8 Medical (eight) Branch hours as needed (muscle pain or spasm). tiZANidine 2019-09 Yes [id number] 4mg Take 1-2 [facility] 4 mg tablet 2- [id number] tablets by ity of 00:00: mouth [place] 00 every 8 Medical (eight) Branch hours as needed (muscle pain or spasm). triamterene 2019-09- No [id number] 1{tbl} Take 1 [facility] -hydrochlor 2-03 22-08 tablet by it y of othiazid 00:00: 00:00 mouth [place] 37.5-25 mg 00 :00 daily. Medical tablet Branch metformin 2019-09- No [id number] 500mg Take 1 [facility] ER 500 mg 2-03 21-11 tablet by [facility] of 24 hr 00:00: 00:00 mouth 2 [place] tablet 00 :00 (two) Medical times Branch daily with meals. metformin 2019-09- No [id number] 500mg Take 1 [facility] ER 500 mg 2- 05-11 tablet by [facility]y of 24 hr 00:00: 00:00 mouth 2 [place] tablet 00 :00 (two) Medical times Branch daily with meals. triamterene 2019-09- No [id number] 1{tbl} Take 1 [facility] -hydrochlor 2-07 - tablet by it y of othiazid 00:00: 00:00 mouth [place] 37.5-25 mg 00 :00 daily. Medical tablet Branch triamterene 2019-09- No [id number] 1{tbl} Take 1 [facility] -hydrochlor 2-07 12-07 tablet by it y of othiazid 00:00: 00:00 mouth [place] 37.5-25 mg 00 :00 daily. Medical tablet Branch METFORMIN 2019-09 Yes [id number] TAKE 1 [facility] [place] ER 750 mg 1-28 TABLET BY ity o f 24 hr 00:00: MOUTH [place] tablet 00 TWICE A Medical DAY WITH Branch MEALS METFORMIN 2019-09 Yes [id number] TAKE 1 [facility] [place] ER 750 mg 1-28 TABLET BY ity o f 24 hr 00:00: MOUTH [place] tablet 00 TWICE A Medical DAY WITH Branch MEALS METFORMIN 2019-09 2020- No [id number] TAKE 1 [facility] ER 750 mg 1-28 12-07 TABLET BY ity of 24 hr 00:00: 00:00 MOUTH [place] tablet 00 :00 TWICE A Medical DAY WITH Branch MEALS METFORMIN 2019-09 2020- No [id number] TAKE 1 [facility] ER 750 mg 1-28 12-07 TABLET BY ity of 24 hr 00:00: 00:00 MOUTH [place] tablet 00 :00 TWICE A Medical DAY WITH Branch MEALS DOCOSAHEXAN 2019-09 Yes Take by [facility] vers OIC 0-23 mouth. ity of ACID/EPA 17:03: [place] (FISH OIL 43 Medical ORAL) Branch alcaftadine 2019-[address] [facility] [place] (LASTACAFT) 0-23 each eye. ity of 0.25 % Drop 17:03: Medical Branch CYCLOSPORIN 2019-[address] [facility] [place] E (RESTASIS 0-23 each eye. ity of OPHTHALMIC) 17:03: Medical Branch DOCOSAHEXAN 2019-09 Yes Take by [facility] OIC 0-23 mouth. ity of ACID/EPA 17:03: [place] (FISH OIL 43 Medical ORAL) Branch vitamin [...] 0-23 mouth. ity of ITAMIN D3 17:03: [place] (VITAMIN 43 Medical D-3 ORAL) Branch alcaftadine 2019-[address] [facility] [place] (LASTACAFT) 0-23 each eye. ity of 0.25 % Drop 17:03: [place] [address] Medical Branch CYCLOSPORIN 2019- Yes Place in [facility] [place] E (RESTASIS 0-23 each eye. ity of OPHTHALMIC) 17:03: [place] [address] Medical Branch DOCOSAHEXAN 2019- Yes Take by [facility] OIC 0-23 mouth. ity of ACID/EPA 17:03: [place] (FISH OIL 43 Medical ORAL) Branch vitamin E 2019- Yes 1000U Take 1,000 U n[facility] 1,000 unit 0-23 Units by ity o f capsule 17:03: mouth [place] 43 daily. Medical Branch Magnesium 2019- Yes Take by [facility] rs 250 mg Tab 0-23 mouth. ity of 17:03: [place] [address] Medical Branch vitamin B-6 2019-09 Yes 100mg Take 100 [facility] (VITAMIN 0-23 mg by ity of B-6) 100 mg 17:03: mouth [place] tablet 43 daily. Medical Branch CALCIUM 2019- Yes Take by [facility] CARBONATE/V 0-23 mouth. ity of ITAMIN D3 17:03: [place] (VITAMIN 43 Medical D-3 ORAL) Branch alcaftadine 2019-[address] [facility] [place] (LASTACAFT) 0-23 each eye. ity of 0.25 % Drop 17:03: [place] [address] Medical Branch CYCLOSPORIN 2019-[address] in [facility] [place] E (RESTASIS 0-23 each eye. ity of OPHTHALMIC) 17:03: [place] [address] Medical Branch DOCOSAHEXAN 2019-09 Yes Take by [facility] vers OIC 0-23 mouth. ity of ACID/EPA 17:03: [place] (FISH OIL 43 Medical ORAL) Branch vitamin E 2019-09 Yes 1000U Take 1,000 U n[facility] 1,000 unit 0-23 Units by ity o f capsule 17:03: mouth [place] 43 daily. Medical Branch Magnesium 2019- Yes Take by [facility] 250 mg Tab 0-23 mouth. ity of 17:03: [place] [address] Medical Branch vitamin B-6 2019- Yes 100mg Take 100 [facility] (VITAMIN 0-23 mg by ity of B-6) 100 mg 17:03: mouth [place] tablet 43 daily. Medical Branch CALCIUM 2019- Yes Take by [facility] CARBONATE/V 0-23 mouth. ity of ITAMIN D3 17:03: [place] (VITAMIN 43 Medical D-3 ORAL) Branch alcaftadine 2019- Yes Place in [facility] [place] (LASTACAFT) 0-23 each eye. ity of 0.25 % Drop 17:03: [place] [address] Medical Branch CYCLOSPORIN 2020- Yes Place in [facility] [place] E (RESTASIS 0-23 each eye. ity of OPHTHALMIC) 17:03: [place] [address] Medical Branch DOCOSAHEXAN 2019- Yes Take by [facility] vers OIC 0-23 mouth. ity of ACID/EPA 17:03: [place] (FISH OIL 43 Medical ORAL) Branch vitamin E 2019- Yes 1000U Take 1,000 U [facility] 1,000 unit 0-23 Units by ity o f capsule 17:03: mouth [place] 43 daily. Medical Branch Magnesium 2019- Yes Take by [facility] 250 mg Tab 0-23 mouth. ity of 17:03: [place] [address] Medical Branch vitamin B-6 2019-09 Yes 100mg Take 100 [facility] (VITAMIN 0-23 mg by ity of B-6) 100 mg 17:03: mouth [place] tablet 43 daily. Medical Branch CALCIUM 2019- Yes Take by [facility] CARBONATE/V 0-23 mouth. ity of ITAMIN D3 17:03: [place] ([facility] 43 Medical D-3 ORAL) Branch alcaftadine 2019-[address] in [facility] [place] (LASTACAFT) 0-23 each eye. ity of 0.25 % Drop 17:03: [place] [place] [address] [facility] CYCLOSPORIN 2019- Yes Place in [place] (RESTASIS 0-23 each eye. ity of OPHTHALMIC) 17:03: [place] [address] [facility] DOCOSAHEXAN 2019- Yes Take by [facility] OIC 0-23 mouth. ity of ACID/EPA 17:03: [place] (FISH OIL 43 Medical ORAL) Branch vitamin E 2019- Yes 1000U Take 1,000 U nivers 1,000 unit 0-23 Units by ity o f capsule 17:03: mouth [place] 43 daily. [facility] Magnesium 2020- Yes Take by [facility] rs 250 mg Tab 0-23 mouth. ity of 17:03: [place] [address] [facility] vitamin B-6 2019- Yes 100mg Take 100 U n[facility] (VITAMIN 0-23 mg by ity of B-6) 100 mg 17:03: mouth [place] tablet 43 daily. [facility] CALCIUM 2020- Yes Take by [facility] CARBONATE/V 0-23 mouth. ity of ITAMIN D3 17:03: [place] (VITAMIN 43 Medical D-3 ORAL) Branch alcaftadine 2020- Yes Place in [place] (LASTACAFT) 0-23 each eye. ity of 0.25 % Drop 17:03: [place] [address] [facility] CYCLOSPORIN 2020- Yes Place in [place] (RESTASIS 0-23 each eye. ity of OPHTHALMIC) 17:03: [place] [address] [facility] DOCOSAHEXAN 2019- Yes Take by [facility] 0-23 mouth. ity of ACID/EPA 17:03: [place] (FISH OIL 43 Medical ORAL) Branch vitamin E 2019- Yes 1000U Take 1,000 U [facility] 1,000 unit 0-23 Units by ity o f capsule 17:03: mouth [place] 43 daily. [facility] Magnesium 2019- Yes Take by [facility] 250 mg Tab 0-23 mouth. ity of 17:03: [place] [address] [facility] vitamin B-6 2019- Yes 100mg Take 100 [facility] (VITAMIN 0-23 mg by ity of B-6) 100 mg 17:03: mouth [place] tablet 43 daily. [facility] CALCIUM 2019- Yes Take by [facility] CARBONATE/V 0-23 mouth. ity of ITAMIN D3 17:03: [place] (VITAMIN 43 Medical D-3 ORAL) Branch alcaftadine 2019-[address] [place] (LASTACAFT) 0-23 each eye. ity of 0.25 % Drop 17:03: [place] [address] [facility] CYCLOSPORIN 2019-[address] [place] (RESTASIS 0-23 each eye. ity of OPHTHALMIC) 17:03: [place] [address] [facility] DOCOSAHEXAN 2019- Yes Take by [facility] OIC 0-23 mouth. ity of ACID/EPA 17:03: [place] (FISH OIL 43 Medical ORAL) Branch vitamin E 2019- Yes 1000U Take 1,000 U nivers 1,000 unit 0-23 Units by ity o f capsule 17:03: mouth [place] 43 daily. [facility] Magnesium 2020- Yes Take by [facility] 250 mg Tab 0-23 mouth. ity of 17:03: [place] [address] [facility] vitamin B-6 2019- Yes 100mg Take 100 [facility] (VITAMIN 0-23 mg by ity of B-6) 100 mg 17:03: mouth [place] tablet 43 daily. [facility] CALCIUM 2020- Yes Take by [facility] CARBONATE/V 0-23 mouth. ity of ITAMIN D3 17:03: [place] (VITAMIN 43 Medical D-3 ORAL) Branch alcaftadine 2020- Yes Place in [place] (LASTACAFT) 0-23 each eye. ity of 0.25 % Drop 17:03: [place] [address] [facility] CYCLOSPORIN 2019- Yes Place in [place] (RESTASIS 0-23 each eye. ity of OPHTHALMIC) 17:03: [place] [address] [facility] DOCOSAHEXAN 2019-09 Yes Take by [facility] 0-23 mouth. ity of ACID/EPA 17:03: [place] (FISH OIL 43 Medical ORAL) Branch vitamin E 2019-09 Yes 1000U Take 1,000 U nivers 1,000 unit 0-23 Units by ity o f capsule 17:03: mouth [place] 43 daily. [facility] Magnesium 2019- Yes Take by [facility] 250 mg Tab 0-23 mouth. ity of 17:03: [place] [address] [facility] vitamin B-6 2019-09 Yes 100mg Take 100 [facility] (VITAMIN 0-23 mg by ity of B-6) 100 mg 17:03: mouth [place] tablet 43 daily. [facility] CALCIUM 2019- Yes Take by [facility] CARBONATE/V 0-23 mouth. ity of ITAMIN D3 17:03: [place] (VITAMIN 43 Medical D-3 ORAL) Branch alcaftadine 2019-[address] [place] (LASTACAFT) 0-23 each eye. ity of 0.25 % Drop 17:03: [place] [address] [facility] CYCLOSPORIN 2019-[address] [place] (RESTASIS 0-23 each eye. ity of OPHTHALMIC) 17:03: [place] [address] [facility] DOCOSAHEXAN 2019- Yes Take by [facility] 0-23 mouth. ity of ACID/EPA 17:03: [place] (FISH OIL 43 Medical ORAL) Branch vitamin E 2019- Yes 1000U Take 1,000 U n[facility] 1,000 unit 0-23 Units by ity o f capsule 17:03: mouth [place] 43 daily. [facility] Magnesium 2019- Yes Take by [facility] 250 mg Tab 0-23 mouth. ity of 17:03: [place] [address] [facility] vitamin B-6 2019- Yes 100mg Take 100 [facility] (VITAMIN 0-23 mg by ity of B-6) 100 mg 17:03: mouth [place] tablet 43 daily. [facility] CALCIUM 2020- Yes Take by [facility] CARBONATE/V 0-23 mouth. ity of ITAMIN D3 17:03: [place] (VITAMIN 43 Medical D-3 ORAL) Branch alcaftadine 2019- Yes Place in [place] (LASTACAFT) 0-23 each eye. ity of 0.25 % Drop 17:03: [place] [address] [facility] CYCLOSPORIN 2019- Yes Place in [place] (RESTASIS 0-23 each eye. ity of OPHTHALMIC) 17:03: [place] [address] [facility] DOCOSAHEXAN 2019- Yes Take by [facility] 0-23 mouth. ity of ACID/EPA 17:03: [place] (FISH OIL 43 Medical ORAL) Branch vitamin E 2019- Yes 1000U Take 1,000 U nivers 1,000 unit 0-23 Units by ity o f capsule 17:03: mouth [place] 43 daily. [facility] Magnesium 2020- Yes Take by [facility] 250 mg Tab 0-23 mouth. ity of 17:03: [place] [address] [facility] vitamin B-6 2019- Yes 100mg Take 100 [facility] (VITAMIN 0-23 mg by ity of B-6) 100 mg 17:03: mouth [place] tablet 43 daily. [facility] CALCIUM 2019- Yes Take by [facility] CARBONATE/V 0-23 mouth. ity of ITAMIN D3 17:03: [place] (VITAMIN 43 Medical D-3 ORAL) Branch alcaftadine 2019-[address] [place] (LASTACAFT) 0-23 each eye. ity of 0.25 % Drop 17:03: [place] [address] [facility] CYCLOSPORIN 2019- Yes Place in [place] (RESTASIS 0-23 each eye. ity of OPHTHALMIC) 17:03: [place] [address] [facility] DOCOSAHEXAN 2019- Yes Take by [facility] 0-23 mouth. ity of ACID/EPA 17:03: [place] (FISH OIL 43 Medical ORAL) Branch vitamin E 2019- Yes 1000U Take 1,000 U n[facility] 1,000 unit 0-23 Units by ity o f capsule 17:03: mouth [place] 43 daily. [facility] Magnesium 2020- Yes Take by [facility] 250 mg Tab 0-23 mouth. ity of 17:03: [place] [address] [facility] vitamin B-6 2020- Yes 100mg Take 100 [facility] (VITAMIN 0-23 mg by ity of B-6) 100 mg 17:03: mouth [place] tablet 43 daily. [facility] CALCIUM 2019- Yes Take by [facility] CARBONATE/V 0-23 mouth. ity of ITAMIN D3 17:03: [place] (VITAMIN 43 Medical D-3 ORAL) Branch alcaftadine 2019-[address] [place] (LASTACAFT) 0-23 each eye. ity of 0.25 % Drop 17:03: [place] [address] [facility] CYCLOSPORIN 2019-[address] [place] (RESTASIS 0-23 each eye. ity of OPHTHALMIC) 17:03: [place] [address] [facility] DOCOSAHEXAN 2019-09 Yes Take by [facility] 0-23 mouth. ity of ACID/EPA 17:03: [place] (FISH OIL 43 Medical ORAL) Branch vitamin E 2019-09 Yes 1000U Take 1,000 U nivers 1,000 unit 0-23 Units by ity o f capsule 17:03: mouth [place] 43 daily. [facility] Magnesium 2019- Yes Take by [facility] 250 mg Tab 0-23 mouth. ity of 17:03: [place] [address] [facility] vitamin B-6 2019-09 Yes 100mg Take 100 [facility] (VITAMIN 0-23 mg by ity of B-6) 100 mg 17:03: mouth [place] tablet 43 daily. [facility] CALCIUM 2019-09 Yes Take by [facility] CARBONATE/V 0-23 mouth. ity of ITAMIN D3 17:03: [place] (VITAMIN 43 Medical D-3 ORAL) Branch alcaftadine 2019-[address] [place] (LASTACAFT) 0-23 each eye. ity of 0.25 % Drop 17:03: [place] [address] [facility] CYCLOSPORIN 2019-[address] [place] (RESTASIS 0-23 each eye. ity of OPHTHALMIC) 17:03: [place] [address] [facility] DOCOSAHEXAN 2019-09 Yes Take by [facility] 0-23 mouth. ity of ACID/EPA 17:03: [place] (FISH OIL 43 Medical ORAL) Branch vitamin E 2019- Yes 1000U Take 1,000 U n[facility] 1,000 unit 0-23 Units by ity o f capsule 17:03: mouth [place] 43 daily. [facility] Magnesium 2020- Yes Take by [facility] 250 mg Tab 0-23 mouth. ity of 17:03: [place] [address] [facility] vitamin B-6 2020- Yes 100mg Take 100 [facility] (VITAMIN 0-23 mg by ity of B-6) 100 mg 17:03: mouth [place] tablet 43 daily. [facility] CALCIUM 2019- Yes Take by [facility] CARBONATE/V 0-23 mouth. ity of ITAMIN D3 17:03: [place] (VITAMIN 43 Medical D-3 ORAL) Branch alcaftadine 2019-[address] [place] (LASTACAFT) 0-23 each eye. ity of 0.25 % Drop 17:03: [place] [address] [facility] CYCLOSPORIN 2019-[address] [place] (RESTASIS 0-23 each eye. ity of OPHTHALMIC) 17:03: [place] [address] [facility] DOCOSAHEXAN 2019-09 Yes Take by [facility] 0-23 mouth. ity of ACID/EPA 17:03: [place] (FISH OIL 43 Medical ORAL) Branch vitamin E 2019-09 Yes 1000U Take 1,000 U nivers 1,000 unit 0-23 Units by ity o f capsule 17:03: mouth [place] 43 daily. [facility] Magnesium 2019- Yes Take by [facility] 250 mg Tab 0-23 mouth. ity of 17:03: [place] [address] [facility] vitamin B-6 2019-09 Yes 100mg Take 100 U [facility] (VITAMIN 0-23 mg by ity of B-6) 100 mg 17:03: mouth [place] tablet 43 daily. [facility] CALCIUM 2019-09 Yes Take by [facility] CARBONATE/V 0-23 mouth. ity of ITAMIN D3 17:03: [place] (VITAMIN 43 Medical D-3 ORAL) Branch alcaftadine 2019-[address] [place] (LASTACAFT) 0-23 each eye. ity of 0.25 % Drop 17:03: [place] [address] [facility] CYCLOSPORIN 2019- Yes Place in [place] (RESTASIS 0-23 each eye. ity of OPHTHALMIC) 17:03: [place] [address] [facility] DOCOSAHEXAN 2019- Yes Take by [facility] 0-23 mouth. ity of ACID/EPA 17:03: [place] (FISH OIL 43 Medical ORAL) Branch vitamin E 2020- Yes 1000U Take 1,000 U nivers 1,000 unit 0-23 Units by ity o f capsule 17:03: mouth [place] 43 daily. [facility] Magnesium 2020- Yes Take by [facility] rs 250 mg Tab 0-23 mouth. ity of 17:03: [place] [address] [facility] vitamin B-6 2019- Yes 100mg Take 100 [facility] (VITAMIN 0-23 mg by ity of B-6) 100 mg 17:03: mouth [place] tablet 43 daily. [facility] CALCIUM 2019-09 Yes Take by [facility] CARBONATE/V 0-23 mouth. ity of ITAMIN D3 17:03: [place] (VITAMIN 43 Medical D-3 ORAL) Branch alcaftadine 2019-[address] [place] (LASTACAFT) 0-23 each eye. ity of 0.25 % Drop 17:03: [place] [address] [facility] CYCLOSPORIN 2019-[address] [facility] [place] (RESTASIS 0-23 each eye. ity of OPHTHALMIC) 17:03: [place] [address] [facility] DOCOSAHEXAN 2019-09 Yes Take by [facility] 0-23 mouth. ity of ACID/EPA 17:03: [place] (FISH OIL 43 Medical ORAL) Branch vitamin E 2019-09 Yes 1000U Take 1,000 U n[facility] 1,000 unit 0-23 Units by ity o f capsule 17:03: mouth [place] 43 daily. [facility] Magnesium 2019- Yes Take by [facility] 250 mg Tab 0-23 mouth. ity of 17:03: [place] [address] [facility] vitamin B-6 2019-09 Yes 100mg Take 100 [facility] (VITAMIN 0-23 mg by ity of B-6) 100 mg 17:03: mouth [place] tablet 43 daily. [facility] CALCIUM 2019-09 Yes Take by [facility] CARBONATE/V 0-23 mouth. ity of ITAMIN D3 17:03: [place] (VITAMIN 43 Medical D-3 ORAL) Branch alcaftadine 2019-[address] [place] (LASTACAFT) 0-23 each eye. ity of 0.25 % Drop 17:03: [place] [address] [facility] CYCLOSPORIN 2019-[address] [facility] [place] (RESTASIS 0-23 each eye. ity of OPHTHALMIC) 17:03: [place] [address] [facility] DOCOSAHEXAN 2019-09 Yes Take by [facility] 0-23 mouth. ity of ACID/EPA 17:03: [place] (FISH OIL 43 Medical ORAL) Branch vitamin E 2019- Yes 1000U Take 1,000 U nivers 1,000 unit 0-23 Units by ity o f capsule 17:03: mouth [place] 43 daily. [facility] Magnesium 2020- Yes Take by [facility] 250 mg Tab 0-23 mouth. ity of 17:03: [place] [address] [facility] vitamin B-6 2019-09 Yes 100mg Take 100 [facility] (VITAMIN 0-23 mg by ity of B-6) 100 mg 17:03: mouth [place] tablet 43 daily. [facility] CALCIUM 2019-09 Yes Take by [facility] CARBONATE/V 0-23 mouth. ity of ITAMIN D3 17:03: [place] (VITAMIN 43 Medical D-3 ORAL) Branch alcaftadine 2019-[address] [place] (LASTACAFT) 0-23 each eye. ity of 0.25 % Drop 17:03: [place] [address] [facility] CYCLOSPORIN 2019-[address] [place] (RESTASIS 0-23 each eye. ity of OPHTHALMIC) 17:03: [place] [address] [facility] DOCOSAHEXAN 2019-09 Yes Take by [facility] 0-23 mouth. ity of ACID/EPA 17:03: [place] (FISH OIL 43 Medical ORAL) Branch vitamin E 2019-09 Yes 1000U Take 1,000 U n[facility] 1,000 unit 0-23 Units by ity o f capsule 17:03: mouth [place] 43 daily. [facility] Magnesium 2019- Yes Take by [facility] 250 mg Tab 0-23 mouth. ity of 17:03: [place] [address] [facility] vitamin B-6 2019-09 Yes 100mg Take 100 [facility] (VITAMIN 0-23 mg by ity of B-6) 100 mg 17:03: mouth [place] tablet 43 daily. [facility] CALCIUM 2019-09 Yes Take by [facility] CARBONATE/V 0-23 mouth. ity of ITAMIN D3 17:03: [place] (VITAMIN 43 Medical D-3 ORAL) Branch alcaftadine 2019-[address] [place] (LASTACAFT) 0-23 each eye. ity of 0.25 % Drop 17:03: [place] [address] [facility] CYCLOSPORIN 2019-[address] [place] (RESTASIS 0-23 each eye. ity of OPHTHALMIC) 17:03: [place] [address] [facility] DOCOSAHEXAN 2019-09 Yes Take by [facility] 0-23 mouth. ity of ACID/EPA 17:03: [place] (FISH OIL 43 Medical ORAL) Branch vitamin E 2019- Yes 1000U Take 1,000 U nivers 1,000 unit 0-23 Units by ity o f capsule 17:03: mouth [place] 43 daily. [facility] Magnesium 2019- Yes Take by [facility] 250 mg Tab 0-23 mouth. ity of 17:03: [place] [address] [facility] vitamin B-6 2019-09 Yes 100mg Take 100 [facility] (VITAMIN 0-23 mg by ity of B-6) 100 mg 17:03: mouth [place] tablet 43 daily. [facility] CALCIUM 2019-09 Yes Take by [facility] CARBONATE/V 0-23 mouth. ity of ITAMIN D3 17:03: [place] (VITAMIN 43 Medical D-3 ORAL) Branch alcaftadine 2019-[address] [place] (LASTACAFT) 0-23 each eye. ity of 0.25 % Drop 17:03: [place] [address] [facility] CYCLOSPORIN 2019-[address] [place] (RESTASIS 0-23 each eye. ity of OPHTHALMIC) 17:03: [place] [address] [facility] DOCOSAHEXAN 2019-09 Yes Take by [facility] 0-23 mouth. ity of ACID/EPA 17:03: [place] (FISH OIL 43 Medical ORAL) Branch vitamin E 2019-09 Yes 1000U Take 1,000 U nivers 1,000 unit 0-23 Units by ity o f capsule 17:03: mouth [place] 43 daily. [facility] Magnesium 2019- Yes Take by [facility] 250 mg Tab 0-23 mouth. ity of 17:03: [place] [address] [facility] vitamin B-6 2019-09 Yes 100mg Take 100 [facility] (VITAMIN 0-23 mg by ity of B-6) 100 mg 17:03: mouth [place] tablet 43 daily. [facility] CALCIUM 2019-09 Yes Take by [facility] CARBONATE/V 0-23 mouth. ity of ITAMIN D3 17:03: [place] (VITAMIN 43 Medical D-3 ORAL) Branch alcaftadine 2019-[address] [place] (LASTACAFT) 0-23 each eye. ity of 0.25 % Drop 17:03: [place] [address] [facility] CYCLOSPORIN 2019-[address] [place] (RESTASIS 0-23 each eye. ity of OPHTHALMIC) 17:03: [place] [address] [facility] DOCOSAHEXAN 2019- Yes Take by [facility] 0-23 mouth. ity of ACID/EPA 17:03: [place] (FISH OIL 43 Medical ORAL) Branch vitamin E 2019-09 Yes 1000U Take 1,000 U n[facility] 1,000 unit 0-23 Units by ity o f capsule 17:03: mouth [place] 43 daily. [facility] Magnesium 2019- Yes Take by [facility] 250 mg Tab 0-23 mouth. ity of 17:03: [place] [address] [facility] vitamin B-6 2019-09 Yes 100mg Take 100 [facility] (VITAMIN 0-23 mg by ity of B-6) 100 mg 17:03: mouth [place] tablet 43 daily. [facility] CALCIUM 2019-09 Yes Take by [facility] CARBONATE/V 0-23 mouth. ity of ITAMIN D3 17:03: [place] (VITAMIN 43 Medical D-3 ORAL) Branch alcaftadine 2019-[address] [place] (LASTACAFT) 0-23 each eye. ity of 0.25 % Drop 17:03: [place] [address] [facility] CYCLOSPORIN 2019-[address] in [place] (RESTASIS 0-23 each eye. ity of OPHTHALMIC) 17:03: [place] [address] [facility] DOCOSAHEXAN 2019-09 Yes Take by [facility] O[facility] 0-23 mouth. ity of ACID/EPA 17:03: [place] (FISH OIL 43 Medical ORAL) Branch vitamin E 2019-09 Yes 1000U Take 1,000 [facility] 1,000 unit 0-23 Units by ity o f capsule 17:03: mouth [place] 43 daily. [facility] Magnesium 2019-09 Yes Take by [facility] rs 250 mg Tab 0-23 mouth. ity of 17:03: [place] [address] [facility] vitamin B-6 2019-09 Yes 100mg Take 100 [facility] (VITAMIN 0-23 mg by ity of B-6) 100 mg 17:03: mouth [place] tablet 43 daily. [facility] CALCIUM 2019-09 Yes Take by [facility] CARBONATE/V 0-23 mouth. ity of ITAMIN D3 17:03: [place] (VITAMIN 43 Medical D-3 ORAL) Branch alcaftadine 2019-[address] [place] (LASTACAFT) 0-23 each eye. ity of 0.25 % Drop 17:03: [place] [address] [facility] CYCLOSPORIN 2019-[address] [place] (RESTASIS 0-23 each eye. ity of OPHTHALMIC) 17:03: [place] [address] [facility] DOCOSAHEXAN 2019-09 Yes Take by [facility] 0-23 mouth. ity of ACID/EPA 17:03: [place] (FISH OIL 43 Medical ORAL) Branch vitamin E 2019-09 Yes 1000U Take 1,000 [facility] 1,000 unit 0-23 Units by ity o f capsule 17:03: mouth [place] 43 daily. [facility] Magnesium 2019- Yes Take by [facility] 250 mg Tab 0-23 mouth. ity of 17:03: [place] [address] [facility] vitamin B-6 2019-09 Yes 100mg Take 100 [facility] (VITAMIN 0-23 mg by ity of B-6) 100 mg 17:03: mouth [place] tablet 43 daily. [facility] CALCIUM 2019-09 Yes Take by [facility] CARBONATE/V 0-23 mouth. ity of ITAMIN D3 17:03: [place] (VITAMIN 43 Medical D-3 ORAL) Branch alcaftadine 2019-[address] [place] (LASTACAFT) 0-23 each eye. ity of 0.25 % Drop 17:03: [place] [address] [facility] CYCLOSPORIN 2019-[address] [place] (RESTASIS 0-23 each eye. ity of OPHTHALMIC) 17:03: [place] [address] [facility] DOCOSAHEXAN 2019-09 Yes Take by [facility] 0-23 mouth. ity of ACID/EPA 17:03: [place] (FISH OIL 43 Medical ORAL) Branch vitamin E 2019-09 Yes 1000U Take 1,000 [facility] 1,000 unit 0-23 Units by ity o f capsule 17:03: mouth [place] 43 daily. [facility] Branch Magnesium 2019- Yes Take by [facility] 250 mg Tab 0-23 mouth. ity of 17:03: [place] [address] [facility] vitamin B-6 2019-09 Yes 100mg Take 100 [facility] (VITAMIN 0-23 mg by ity of B-6) 100 mg 17:03: mouth [place] tablet 43 daily. [facility] CALCIUM 2019-09 Yes Take by [facility] CARBONATE/V 0-23 mouth. ity of ITAMIN D3 17:03: [place] (VITAMIN 43 Medical D-3 ORAL) Branch alcaftadine 2019-[address] [place] (LASTACAFT) 0-23 each eye. ity of 0.25 % Drop 17:03: [place] [address] [facility] CYCLOSPORIN 2019-[address] [place] (RESTASIS 0-23 each eye. ity of OPHTHALMIC) 17:03: [facility] Branch DOCOSAHEXAN 2019- Yes Take by [facility] 0-23 mouth. ity of ACID/EPA 17:03: [place] (FISH OIL 43 Medical ORAL) Branch vitamin E 2019- Yes 1000U Take 1,000 U [facility] 1,000 unit 0-23 Units by ity o f capsule 17:03: mouth [place] 43 daily. [facility] Branch Magnesium 2019- Yes Take by [facility] 250 mg Tab 0-23 mouth. ity of 17:03: Medical Branch vitamin B-6 2019-09 Yes 100mg Take 100 [facility] (VITAMIN 0-23 mg by ity of B-6) 100 mg 17:03: mouth [place] tablet 43 daily. [facility] CALCIUM 2019-09 Yes Take by [facility] CARBONATE/V 0-23 mouth. ity of ITAMIN D3 17:03: [place] (VITAMIN 43 Medical D-3 ORAL) Branch alcaftadine 2019-[address] [facility] [place] (LASTACAFT) 0-23 each eye. ity of 0.25 % Drop 17:03: [place] [address] [facility] CYCLOSPORIN 2019-[address] [facility] [place] (RESTASIS 0-23 each eye. ity of OPHTHALMIC) 17:03: [place] [address] [facility] DOCOSAHEXAN 2019-09 Yes Take by [facility] 0-23 mouth. ity of ACID/EPA 17:03: [place] (FISH OIL 43 Medical ORAL) Branch vitamin E 2019-09 Yes 1000U Take 1,000 U [facility] 1,000 unit 0-23 Units by ity o f capsule 17:03: mouth [place] 43 daily. [facility] Magnesium 2020- Yes Take by [facility] rs 250 mg Tab 0-23 mouth. ity of 17:03: [place] [address] [facility] vitamin B-6 2019- Yes 100mg Take 100 [facility] (VITAMIN 0-23 mg by ity of B-6) 100 mg 17:03: mouth [place] tablet 43 daily. [facility] CALCIUM 2019- Yes Take by [facility] CARBONATE/V 0-23 mouth. ity of ITAMIN D3 17:03: [place] (VITAMIN 43 Medical D-3 ORAL) Branch alcaftadine 2019-[address] [place] (LASTACAFT) 0-23 each eye. ity of 0.25 % Drop 17:03: [place] [address] [facility] CYCLOSPORIN 2019- Yes Place in [place] (RESTASIS 0-23 each eye. ity of OPHTHALMIC) 17:03: [place] [address] [facility] DOCOSAHEXAN 2019- Yes Take by [facility] 0-23 mouth. ity of ACID/EPA 17:03: [place] (FISH OIL 43 Medical ORAL) Branch vitamin E 2019- Yes 1000U Take 1,000 [facility] 1,000 unit 0-23 Units by ity o f capsule 17:03: mouth [place] 43 daily. [facility] Branch Magnesium 2019- Yes Take by [facility] rs 250 mg Tab 0-23 mouth. ity of 17:03: [place] [address] [facility] vitamin B-6 2019-09 Yes 100mg Take 100 [facility] (VITAMIN 0-23 mg by ity of B-6) 100 mg 17:03: mouth [place] tablet 43 daily. [facility] Branch CALCIUM 2019- Yes Take by [facility] CARBONATE/V 0-23 mouth. ity of ITAMIN D3 17:03: [place] (VITAMIN 43 Medical D-3 ORAL) Branch alcaftadine 2019-[address] [place] (LASTACAFT) 0-23 each eye. ity of 0.25 % Drop 17:03: [place] [address] [facility] CYCLOSPORIN 2019-[address] [facility] [place] (RESTASIS 0-23 each eye. ity of OPHTHALMIC) 17:03: [place] [address] [facility] DOCOSAHEXAN 2019-09 Yes Take by [facility] vers [facility] 0-23 mouth. ity of ACID/EPA 17:03: [place] (FISH OIL 43 Medical ORAL) Branch vitamin E 2019-09 Yes 1000U Take 1,000 U [facility] 1,000 unit 0-23 Units by ity o f capsule 17:03: mouth [place] 43 daily. Medical Branch Magnesium 2019- Yes Take by [facility] 250 mg Tab 0-23 mouth. ity of 17:03: [place] [address] [facility] vitamin B-6 2019- Yes 100mg Take 100 [facility] (VITAMIN 0-23 mg by ity of B-6) 100 mg 17:03: mouth [place] tablet 43 daily. Medical Branch CALCIUM 2019- Yes Take by [facility] CARBONATE/V 0-23 mouth. ity of ITAMIN D3 17:03: [place] (VITAMIN 43 Medical D-3 ORAL) Branch alcaftadine 2019- Yes Place in [place] (LASTACAFT) 0-23 each eye. ity of 0.25 % Drop 17:03: [place] [address] [facility] CYCLOSPORIN 2020- Yes Place in [place] (RESTASIS 0-23 each eye. ity of OPHTHALMIC) 17:03: [place] [address] [facility] DOCOSAHEXAN 2019- Yes Take by [facility] 0-23 mouth. ity of ACID/EPA 17:03: [place] (FISH OIL 43 Medical ORAL) Branch vitamin E 2019- Yes 1000U Take 1,000 U [facility] 1,000 unit 0-23 Units by ity o f capsule 17:03: mouth [place] 43 daily. [facility] Branch Magnesium 2019- Yes Take by [facility] 250 mg Tab 0-23 mouth. ity of 17:03: [place] [address] [facility] vitamin B-6 2019-09 Yes 100mg Take 100 [facility] (VITAMIN 0-23 mg by ity of B-6) 100 mg 17:03: mouth [place] tablet 43 daily. Medical Branch CALCIUM 2019- Yes Take by [facility] CARBONATE/V 0-23 mouth. ity of ITAMIN D3 17:03: [place] ([facility] 43 Medical D-3 ORAL) Branch alcaftadine 2019-[address] [place] (LASTACAFT) 0-23 each eye. ity of 0.25 % Drop 17:03: [place] [address] [facility] CYCLOSPORIN 2019- Yes Place in [place] (RESTASIS 0-23 each eye. ity of OPHTHALMIC) 17:03: [place] [address] [facility] DOCOSAHEXAN 2019- Yes Take by [facility] vers [facility] 0-23 mouth. ity of ACID/EPA 17:03: [place] (FISH OIL 43 Medical ORAL) Branch vitamin E 2019- Yes 1000U Take 1,000 U [facility] 1,000 unit 0-23 Units by ity o f capsule 17:03: mouth [place] 43 daily. Medical Branch Magnesium 2020- Yes Take by [facility] rs 250 mg Tab 0-23 mouth. ity of 17:03: [place] [address] [facility] vitamin B-6 2019- Yes 100mg Take 100 [facility] (VITAMIN 0-23 mg by ity of B-6) 100 mg 17:03: mouth [place] tablet 43 daily. Medical Branch CALCIUM 2020- Yes Take by [facility] CARBONATE/V 0-23 mouth. ity of ITAMIN D3 17:03: [place] (VITAMIN 43 Medical D-3 ORAL) Branch alcaftadine 2020- Yes Place in [place] (LASTACAFT) 0-23 each eye. ity of 0.25 % Drop 17:03: [place] [address] [facility] CYCLOSPORIN 2020- Yes Place in [place] (RESTASIS 0-23 each eye. ity of OPHTHALMIC) 17:03: [place] [address] [facility] DOCOSAHEXAN 2019- Yes Take by [facility] vers OIC 0-23 mouth. ity of ACID/EPA 17:03: [place] (FISH OIL 43 Medical ORAL) Branch vitamin E 2019- Yes 1000U Take 1,000 [facility] 1,000 unit 0-23 Units by ity o f capsule 17:03: mouth [place] 43 daily. Medical Branch Magnesium 2019- Yes Take by [facility] rs 250 mg Tab 0-23 mouth. ity of 17:03: [place] [address] [facility] vitamin B-6 2019- Yes 100mg Take 100 [facility] (VITAMIN 0-23 mg by ity of B-6) 100 mg 17:03: mouth [place] tablet 43 daily. [facility] CALCIUM 2019- Yes Take by [facility] CARBONATE/V 0-23 mouth. ity of ITAMIN D3 17:03: [place] (VITAMIN 43 Medical D-3 ORAL) Branch alcaftadine 2019-[address] [facility] [place] (LASTACAFT) 0-23 each eye. ity of 0.25 % Drop 17:03: [place] [address] [facility] CYCLOSPORIN 2019-[address] [facility] [place] (RESTASIS 0-23 each eye. ity of OPHTHALMIC) 17:03: [place] [address] [facility] DOCOSAHEXAN 2019- Yes Take by [facility] vers OIC 0-23 mouth. ity of ACID/EPA 17:03: [place] (FISH OIL 43 Medical ORAL) Branch vitamin E 2019- Yes 1000U Take 1,000 [facility] 1,000 unit 0-23 Units by ity o f capsule 17:03: mouth [place] 43 daily. Medical Branch Magnesium 2020- Yes Take by [facility] rs 250 mg Tab 0-23 mouth. ity of 17:03: [place] [address] [facility] vitamin B-6 2019- Yes 100mg Take 100 [facility] (VITAMIN 0-23 mg by ity of B-6) 100 mg 17:03: mouth [place] tablet 43 daily. [facility] CALCIUM 2020- Yes Take by [facility] CARBONATE/V 0-23 mouth. ity of ITAMIN D3 17:03: [place] (VITAMIN 43 Medical D-3 ORAL) Branch alcaftadine 2020- Yes Place in [place] (LASTACAFT) 0-23 each eye. ity of 0.25 % Drop 17:03: [place] [address] [facility] CYCLOSPORIN 2019- Yes Place in [place] (RESTASIS 0-23 each eye. ity of OPHTHALMIC) 17:03: [place] [address] [facility] Branch DOCOSAHEXAN 2019-09 Yes Take by [facility] vers OIC 0-23 mouth. ity of ACID/EPA 17:03: [place] (FISH OIL 43 Medical ORAL) Branch vitamin E 2019-09 Yes 1000U Take 1,000 [facility] 1,000 unit 0-23 Units by ity o f capsule 17:03: mouth [place] 43 daily. Medical Branch Magnesium 2019- Yes Take by [facility] 250 mg Tab 0-23 mouth. ity of 17:03: [place] [address] [facility] vitamin B-6 2019-09 Yes 100mg Take 100 [facility] (VITAMIN 0-23 mg by ity of B-6) 100 mg 17:03: mouth [place] tablet 43 daily. [facility] CALCIUM 2019- Yes Take by [facility] CARBONATE/V 0-23 mouth. ity of ITAMIN D3 17:03: [place] (VITAMIN 43 Medical D-3 ORAL) Branch alcaftadine 2019-[address] [facility] [place] (LASTACAFT) 0-23 each eye. ity of 0.25 % Drop 17:03: [place] [address] [facility] CYCLOSPORIN 2019-[address] [facility] [place] (RESTASIS 0-23 each eye. ity of OPHTHALMIC) 17:03: [place] [address] [facility] DOCOSAHEXAN 2019- Yes Take by [facility] vers OIC 0-23 mouth. ity of ACID/EPA 17:03: [place] (FISH OIL 43 Medical ORAL) Branch vitamin E 2019- Yes 1000U Take 1,000 [facility] 1,000 unit 0-23 Units by ity o f capsule 17:03: mouth [place] 43 daily. Medical Branch Magnesium 2019- Yes Take by [facility] 250 mg Tab 0-23 mouth. ity of 17:03: [place] [address] [facility] vitamin B-6 2019- Yes 100mg Take 100 [facility] (VITAMIN 0-23 mg by ity of B-6) 100 mg 17:03: mouth [place] tablet 43 daily. [facility] Branch CALCIUM 2020- Yes Take by [facility] CARBONATE/V 0-23 mouth. ity of ITAMIN D3 17:03: [place] (VITAMIN 43 Medical D-3 ORAL) Branch alcaftadine 2019- Yes Place in [place] (LASTACAFT) 0-23 each eye. ity of 0.25 % Drop 17:03: [place] [address] [facility] CYCLOSPORIN 2019- Yes Place in [place] (RESTASIS 0-23 each eye. ity of OPHTHALMIC) 17:03: [place] [address] [facility] DOCOSAHEXAN 2019- Yes Take by [facility] vers OIC 0-23 mouth. ity of ACID/EPA 17:03: [place] (FISH OIL 43 Medical ORAL) Branch vitamin E 2019- Yes 1000U Take 1,000 [facility] 1,000 unit 0-23 Units by ity o f capsule 17:03: mouth [place] 43 daily. Medical Branch Magnesium 2020- Yes Take by [facility] 250 mg Tab 0-23 mouth. ity of 17:03: [place] [address] [facility] Branch vitamin B-6 2019- Yes 100mg Take 100 [facility] (VITAMIN 0-23 mg by ity of B-6) 100 mg 17:03: mouth [place] tablet 43 daily. Medical [facility] CALCIUM 2019- Yes Take by [facility] CARBONATE/V 0-23 mouth. ity of ITAMIN D3 17:03: [place] (VITAMIN 43 Medical D-3 ORAL) Branch alcaftadine 2019-[address] [place] (LASTACAFT) 0-23 each eye. ity of 0.25 % Drop 17:03: [place] [address] [facility] CYCLOSPORIN 2019- Yes Place in [place] (RESTASIS 0-23 each eye. ity of OPHTHALMIC) 17:03: [place] [address] [facility] DOCOSAHEXAN 2019- Yes Take by [facility] vers OIC 0-23 mouth. ity of ACID/EPA 17:03: [place] (FISH OIL 43 Medical ORAL) Branch vitamin E 2019- Yes 1000U Take 1,000 [facility] 1,000 unit 0-23 Units by ity o f capsule 17:03: mouth [place] 43 daily. Medical Branch Magnesium 2020- Yes Take by [facility] 250 mg Tab 0-23 mouth. ity of 17:03: [place] [address] [facility] vitamin B-6 2020- Yes 100mg Take 100 [facility] (VITAMIN 0-23 mg by ity of B-6) 100 mg 17:03: mouth [place] tablet 43 daily. Medical Branch CALCIUM 2019- Yes Take by [facility] CARBONATE/V 0-23 mouth. ity of ITAMIN D3 17:03: [place] (VITAMIN 43 Medical D-3 ORAL) Branch alcaftadine 2019-[address] [place] (LASTACAFT) 0-23 each eye. ity of 0.25 % Drop 17:03: [place] [address] [facility] CYCLOSPORIN 2019-[address] [facility] [place] (RESTASIS 0-23 each eye. ity of OPHTHALMIC) 17:03: [place] [address] [facility] Branch DOCOSAHEXAN 2019-09 Yes Take by [facility] vers OIC 0-23 mouth. ity of ACID/EPA 17:03: [place] (FISH OIL 43 Medical ORAL) Branch vitamin E 2019-09 Yes 1000U Take 1,000 [facility] 1,000 unit 0-23 Units by ity o f capsule 17:03: mouth [place] 43 daily. Medical Branch Magnesium 2019- Yes Take by [facility] 250 mg Tab 0-23 mouth. ity of 17:03: [place] [address] [facility] vitamin B-6 2019-09 Yes 100mg Take 100 [facility] (VITAMIN 0-23 mg by ity of B-6) 100 mg 17:03: mouth [place] tablet 43 daily. Medical Branch CALCIUM 2019-09 Yes Take by [facility] CARBONATE/V 0-23 mouth. ity of ITAMIN D3 17:03: [place] (VITAMIN 43 Medical D-3 ORAL) Branch alcaftadine 2019-[address] [place] (LASTACAFT) 0-23 each eye. ity of 0.25 % Drop 17:03: [place] [address] [facility] CYCLOSPORIN 2019-[address] in [place] (RESTASIS 0-23 each eye. ity of OPHTHALMIC) 17:03: [place] [address] [facility] Branch DOCOSAHEXAN 2019-09 Yes Take by [facility] vers OIC 0-23 mouth. ity of ACID/EPA 17:03: [place] (FISH OIL 43 Medical ORAL) Branch vitamin E 2019- Yes 1000U Take 1,000 [facility] 1,000 unit 0-23 Units by ity o f capsule 17:03: mouth [place] 43 daily. Medical Branch Magnesium 2020- Yes Take by [facility] 250 mg Tab 0-23 mouth. ity of 17:03: [place] [address] [facility] Branch vitamin B-6 2020- Yes 100mg Take 100 [facility] (VITAMIN 0-23 mg by ity of B-6) 100 mg 17:03: mouth [place] tablet 43 daily. Medical Branch CALCIUM 2019- Yes Take by [facility] CARBONATE/V 0-23 mouth. ity of ITAMIN D3 17:03: [place] (VITAMIN 43 Medical D-3 ORAL) Branch alcaftadine 2019-[address] [facility] [place] (LASTACAFT) 0-23 each eye. ity of 0.25 % Drop 17:03: [place] [address] [facility] CYCLOSPORIN 2019-[address] in [place] (RESTASIS 0-23 each eye. ity of OPHTHALMIC) 17:03: [place] [address] [facility] Branch DOCOSAHEXAN 2019-09 Yes Take by [facility] vers OIC 0-23 mouth. ity of ACID/EPA 17:03: [place] (FISH OIL 43 Medical ORAL) Branch vitamin E 2019-09 Yes 1000U Take 1,000 [facility] 1,000 unit 0-23 Units by ity o f capsule 17:03: mouth [place] 43 daily. Medical Branch Magnesium 2019- Yes Take by [facility] 250 mg Tab 0-23 mouth. ity of 17:03: [place] [address] [facility] Branch vitamin B-6 2019-09 Yes 100mg Take 100 [facility] (VITAMIN 0-23 mg by ity of B-6) 100 mg 17:03: mouth [place] tablet 43 daily. Medical Branch CALCIUM 2019-09 Yes Take by [facility] CARBONATE/V 0-23 mouth. ity of ITAMIN D3 17:03: [place] (VITAMIN 43 Medical D-3 ORAL) Branch alcaftadine 2019-[address] [facility] [place] (LASTACAFT) 0-23 each eye. ity of 0.25 % Drop 17:03: [place] [address] [facility] CYCLOSPORIN 2019- Yes Place in [place] (RESTASIS 0-23 each eye. ity of OPHTHALMIC) 17:03: [place] [address] [facility] Branch DOCOSAHEXAN 2019- Yes Take by [facility] vers OIC 0-23 mouth. ity of ACID/EPA 17:03: [place] (FISH OIL 43 Medical ORAL) Branch vitamin E 2020- Yes 1000U Take 1,000 [facility] 1,000 unit 0-23 Units by ity o f capsule 17:03: mouth [place] 43 daily. Medical Branch Magnesium 2020- Yes Take by [facility] 250 mg Tab 0-23 mouth. ity of 17:03: [place] [address] [facility] Branch vitamin B-6 2019- Yes 100mg Take 100 [facility] (VITAMIN 0-23 mg by ity of B-6) 100 mg 17:03: mouth [place] tablet 43 daily. Medical Branch CALCIUM 2019-09 Yes Take by [facility] CARBONATE/V 0-23 mouth. ity of ITAMIN D3 17:03: [place] (VITAMIN 43 Medical D-3 ORAL) Branch alcaftadine 2019-[address] in [place] (LASTACAFT) 0-23 each eye. ity of 0.25 % Drop 17:03: [place] [address] [facility] Branch CYCLOSPORIN 2019-[address] in [place] (RESTASIS 0-23 each eye. ity of OPHTHALMIC) 17:03: [place] [address] [facility] Branch DOCOSAHEXAN 2019-09 Yes Take by [facility] vers OIC 0-23 mouth. ity of ACID/EPA 17:03: [place] (FISH OIL 43 Medical ORAL) Branch vitamin E 2019-09 Yes 1000U Take 1,000 [facility] 1,000 unit 0-23 Units by ity o f capsule 17:03: mouth [place] 43 daily. Medical Branch Magnesium 2019- Yes Take by [facility] rs 250 mg Tab 0-23 mouth. ity of 17:03: [place] [address] [facility] Branch vitamin B-6 2019-09 Yes 100mg Take 100 [facility] (VITAMIN 0-23 mg by ity of B-6) 100 mg 17:03: mouth [place] tablet 43 daily. Medical Branch CALCIUM 2019-09 Yes Take by [facility] CARBONATE/V 0-23 mouth. ity of ITAMIN D3 17:03: [place] (VITAMIN 43 Medical D-3 ORAL) Branch alcaftadine 2019-[address] in [place] (LASTACAFT) 0-23 each eye. ity of 0.25 % Drop 17:03: [place] [address] [facility] Branch CYCLOSPORIN 2019-[address] in [place] (RESTASIS 0-23 each eye. ity of OPHTHALMIC) 17:03: [place] [address] [facility] Branch DOCOSAHEXAN 2019-09 Yes Take by [facility] vers OIC 0-23 mouth. ity of ACID/EPA 17:03: [place] (FISH OIL 43 Medical ORAL) Branch vitamin E 2019- Yes 1000U Take 1,000 [facility] 1,000 unit 0-23 Units by ity o f capsule 17:03: mouth [place] 43 daily. Medical Branch Magnesium 2020- Yes Take by [facility] 250 mg Tab 0-23 mouth. ity of 17:03: [place] [address] [facility] Branch vitamin B-6 2019-09 Yes 100mg Take 100 [facility] (VITAMIN 0-23 mg by ity of B-6) 100 mg 17:03: mouth [place] tablet 43 daily. Medical Branch CALCIUM 2019-09 Yes Take by [facility] CARBONATE/V 0-23 mouth. ity of ITAMIN D3 17:03: [place] (VITAMIN 43 Medical D-3 ORAL) Branch alcaftadine 2019-[address] in [place] (LASTACAFT) 0-23 each eye. ity of 0.25 % Drop 17:03: [place] [address] [facility] Branch CYCLOSPORIN 2019-[address] in [place] (RESTASIS 0-23 each eye. ity of OPHTHALMIC) 17:03: [place] [address] [facility] Branch DOCOSAHEXAN 2019-09 Yes Take by [facility] vers OIC 0-23 mouth. ity of ACID/EPA 17:03: [place] (FISH OIL 43 Medical ORAL) Branch vitamin E 2019-09 Yes 1000U Take 1,000 [facility] 1,000 unit 0-23 Units by ity o f capsule 17:03: mouth [place] 43 daily. Medical Branch Magnesium 2019- Yes Take by [facility] rs 250 mg Tab 0-23 mouth. ity of 17:03: [place] [address] [facility] Branch vitamin B-6 2019-09 Yes 100mg Take 100 [facility] (VITAMIN 0-23 mg by ity of B-6) 100 mg 17:03: mouth [place] tablet 43 daily. Medical Branch CALCIUM 2019-09 Yes Take by [facility] CARBONATE/V 0-23 mouth. ity of ITAMIN D3 17:03: [place] (VITAMIN 43 Medical D-3 ORAL) Branch alcaftadine 2019-[address] in [place] (LASTACAFT) 0-23 each eye. ity of 0.25 % Drop 17:03: [place] [address] [facility] CYCLOSPORIN 2019-[address] in [place] (RESTASIS 0-23 each eye. ity of OPHTHALMIC) 17:03: [place] [address] [facility] Branch DOCOSAHEXAN 2019-09 Yes Take by [facility] vers OIC 0-23 mouth. ity of ACID/EPA 17:03: [place] (FISH OIL 43 Medical ORAL) Branch vitamin E 2019- Yes 1000U Take 1,000 [facility] 1,000 unit 0-23 Units by ity o f capsule 17:03: mouth [place] 43 daily. Medical Branch Magnesium 2019- Yes Take by [facility] rs 250 mg Tab 0-23 mouth. ity of 17:03: [place] [address] [facility] Branch vitamin B-6 2019-09 Yes 100mg Take 100 [facility] (VITAMIN 0-23 mg by ity of B-6) 100 mg 17:03: mouth [place] tablet 43 daily. Medical Branch CALCIUM 2019-09 Yes Take by [facility] CARBONATE/V 0-23 mouth. ity of ITAMIN D3 17:03: [place] (VITAMIN 43 Medical D-3 ORAL) Branch alcaftadine 2019-[address] in [place] (LASTACAFT) 0-23 each eye. ity of 0.25 % Drop 17:03: [place] [address] [facility] Branch CYCLOSPORIN 2019-[address] in [place] (RESTASIS 0-23 each eye. ity of OPHTHALMIC) 17:03: [place] [address] [facility] Branch DOCOSAHEXAN 2019-09 Yes Take by [facility] vers OIC 0-23 mouth. ity of ACID/EPA 17:03: [place] (FISH OIL 43 Medical ORAL) Branch vitamin E 2019-09 Yes 1000U Take 1,000 [facility] 1,000 unit 0-23 Units by ity o f capsule 17:03: mouth [place] 43 daily. Medical Branch Magnesium 2019- Yes Take by [facility] rs 250 mg Tab 0-23 mouth. ity of 17:03: [place] [address] [facility] Branch vitamin B-6 2019-09 Yes 100mg Take 100 [facility] (VITAMIN 0-23 mg by ity of B-6) 100 mg 17:03: mouth [place] tablet 43 daily. Medical Branch CALCIUM 2019-09 Yes Take by [facility] CARBONATE/V 0-23 mouth. ity of ITAMIN D3 17:03: [place] (VITAMIN 43 Medical D-3 ORAL) Branch alcaftadine 2019-[address] in [place] (LASTACAFT) 0-23 each eye. ity of 0.25 % Drop 17:03: [place] [address] [facility] Branch CYCLOSPORIN 2019-[address] in [place] (RESTASIS 0-23 each eye. ity of OPHTHALMIC) 17:03: [place] [address] [facility] Branch DOCOSAHEXAN 2019- Yes Take by [facility] vers OIC 0-23 mouth. ity of ACID/EPA 17:03: [place] (FISH OIL 43 Medical ORAL) Branch vitamin E 2019-09 Yes 1000U Take 1,000 [facility] 1,000 unit 0-23 Units by ity o f capsule 17:03: mouth [place] 43 daily. Medical Branch Magnesium 2019- Yes Take by [facility] rs 250 mg Tab 0-23 mouth. ity of 17:03: [place] [address] [facility] Branch vitamin B-6 2019-09 Yes 100mg Take 100 [facility] (VITAMIN 0-23 mg by ity of B-6) 100 mg 17:03: mouth [place] tablet 43 daily. Medical Branch CALCIUM 2019-09 Yes Take by [facility] CARBONATE/V 0-23 mouth. ity of ITAMIN D3 17:03: [place] (VITAMIN 43 Medical D-3 ORAL) Branch alcaftadine 2019-[address] in [place] (LASTACAFT) 0-23 each eye. ity of 0.25 % Drop 17:03: [place] [address] [facility] Branch CYCLOSPORIN 2019-[address] in [place] (RESTASIS 0-23 each eye. ity of OPHTHALMIC) 17:03: [place] [address] [facility] Branch DOCOSAHEXAN 2019-09 Yes Take by [facility] vers OIC 0-23 mouth. ity of ACID/EPA 17:03: [place] (FISH OIL 43 Medical ORAL) Branch vitamin E 2019-09 Yes 1000U Take 1,000 [facility] 1,000 unit 0-23 Units by ity o f capsule 17:03: mouth [place] 43 daily. Medical Branch Magnesium 2019-09 Yes Take by [facility] rs 250 mg Tab 0-23 mouth. ity of 17:03: [place] [address] [facility] Branch vitamin B-6 2019-09 Yes 100mg Take 100 [facility] (VITAMIN 0-23 mg by ity of B-6) 100 mg 17:03: mouth [place] tablet 43 daily. Medical Branch CALCIUM 2019-09 Yes Take by [facility] CARBONATE/V 0-23 mouth. ity of ITAMIN D3 17:03: [place] (VITAMIN 43 Medical D-3 ORAL) Branch alcaftadine 2019-[address] in [place] (LASTACAFT) 0-23 each eye. ity of 0.25 % Drop 17:03: [place] [address] [facility] Branch CYCLOSPORIN 2019-[address] in [place] (RESTASIS 0-23 each eye. ity of OPHTHALMIC) 17:03: [place] [address] [facility] Branch DOCOSAHEXAN 2019-09 Yes Take by [facility] vers OIC 0-23 mouth. ity of ACID/EPA 17:03: [place] (FISH OIL 43 Medical ORAL) Branch vitamin E 2019-09 Yes 1000U Take 1,000 [facility] 1,000 unit 0-23 Units by ity o f capsule 17:03: mouth [place] 43 daily. Medical Branch Magnesium 2019- Yes Take by [facility] rs 250 mg Tab 0-23 mouth. ity of 17:03: [place] [address] [facility] Branch vitamin B-6 2019-09 Yes 100mg Take 100 [facility] (VITAMIN 0-23 mg by ity of B-6) 100 mg 17:03: mouth [place] tablet 43 daily. Medical Branch CALCIUM 2019-09 Yes Take by [facility] CARBONATE/V 0-23 mouth. ity of ITAMIN D3 17:03: [place] (VITAMIN 43 Medical D-3 ORAL) Branch alcaftadine 2019-[address] [facility] [place] (LASTACAFT) 0-23 each eye. ity of 0.25 % Drop 17:03: [place] [address] [facility] Branch CYCLOSPORIN 2019-[address] in [place] (RESTASIS 0-23 each eye. ity of OPHTHALMIC) 17:03: [place] [address] [facility] Branch DOCOSAHEXAN 2019-09 Yes Take by [facility] vers OIC 0-23 mouth. ity of ACID/EPA 17:03: [place] (FISH OIL 43 Medical ORAL) Branch vitamin E 2019-09 Yes 1000U Take 1,000 [facility] 1,000 unit 0-23 Units by ity o f capsule 17:03: mouth [place] 43 daily. Medical Branch Magnesium 2019- Yes Take by [facility] 250 mg Tab 0-23 mouth. ity of 17:03: [place] [address] [facility] Branch vitamin B-6 2019-09 Yes 100mg Take 100 [facility] (VITAMIN 0-23 mg by ity of B-6) 100 mg 17:03: mouth [place] tablet 43 daily. Medical Branch CALCIUM 2019-09 Yes Take by [facility] CARBONATE/V 0-23 mouth. ity of ITAMIN D3 17:03: [place] (VITAMIN 43 Medical D-3 ORAL) Branch alcaftadine 2019-[address] in [place] (LASTACAFT) 0-23 each eye. ity of 0.25 % Drop 17:03: [place] [address] [facility] Branch CYCLOSPORIN 2019-[address] in [place] (RESTASIS 0-23 each eye. ity of OPHTHALMIC) 17:03: [place] [address] [facility] Branch DOCOSAHEXAN 2019-09 Yes Take by [facility] vers OIC 0-23 mouth. ity of ACID/EPA 17:03: [place] (FISH OIL 43 Medical ORAL) Branch vitamin E 2019- Yes 1000U Take 1,000 [facility] 1,000 unit 0-23 Units by ity o f capsule 17:03: mouth [place] 43 daily. Medical Branch Magnesium 2019- Yes Take by [facility] rs 250 mg Tab 0-23 mouth. ity of 17:03: [place] [address] [facility] Branch vitamin B-6 2019-09 Yes 100mg Take 100 [facility] (VITAMIN 0-23 mg by ity of B-6) 100 mg 17:03: mouth [place] tablet 43 daily. Medical Branch CALCIUM 2019-09 Yes Take by [facility] CARBONATE/V 0-23 mouth. ity of ITAMIN D3 17:03: [place] (VITAMIN 43 Medical D-3 ORAL) Branch alcaftadine 2019-[address] in [place] (LASTACAFT) 0-23 each eye. ity of 0.25 % Drop 17:03: [place] [address] [facility] Branch CYCLOSPORIN 2019-[address] in [place] (RESTASIS 0-23 each eye. ity of OPHTHALMIC) 17:03: [place] [address] [facility] Branch DOCOSAHEXAN 2019-09 Yes Take by [facility] vers OIC 0-23 mouth. ity of ACID/EPA 17:03: [place] (FISH OIL 43 Medical ORAL) Branch vitamin E 2019-09 Yes 1000U Take 1,000 [facility] 1,000 unit 0-23 Units by ity o f capsule 17:03: mouth [place] 43 daily. Medical Branch Magnesium 2019- Yes Take by [facility] rs 250 mg Tab 0-23 mouth. ity of 17:03: [place] [address] [facility] Branch vitamin B-6 2019-09 Yes 100mg Take 100 [facility] (VITAMIN 0-23 mg by ity of B-6) 100 mg 17:03: mouth [place] tablet 43 daily. Medical Branch CALCIUM 2019-09 Yes Take by [facility] CARBONATE/V 0-23 mouth. ity of ITAMIN D3 17:03: [place] (VITAMIN 43 Medical D-3 ORAL) Branch DOCOSAHEXAN [...] OIC 0-23 mouth. ity of ACID/EPA 12:03: [place] (FISH OIL 43 Medical ORAL) Branch DOCOSAHEXAN 2019- Yes Take by [facility] vers OIC 0-23 mouth. ity of ACID/EPA 12:03: [place] (FISH OIL 43 Medical ORAL) Branch DOCOSAHEXAN 2019- Yes Take by [facility] vers OIC 0-23 mouth. ity of ACID/EPA 12:03: [place] (FISH OIL 43 Medical ORAL) Branch DOCOSAHEXAN 2019- Yes Take by [facility] vers OIC 0-23 mouth. ity of ACID/EPA 12:03: [place] (FISH OIL 43 Medical ORAL) Branch DOCOSAHEXAN 2019- Yes Take by [facility] vers OIC 0-23 mouth. ity of ACID/EPA 12:03: [place] (FISH OIL 43 Medical ORAL) Branch DOCOSAHEXAN 2019- Yes Take by [facility] vers OIC 0-23 mouth. ity of ACID/EPA 12:03: [place] (FISH OIL 43 Medical ORAL) Branch metoprolol 2019- Yes [id number] 25mg Take 1 U nivers succinate 0-23 tablet by ity o f XL 25 mg 24 00:00: mouth 2 [place] [facility] tablet 00 (two) Medical times [place] daily. metoprolol 2020- Yes [id number] 25mg Take 1 [facility] n[facility] succinate 0-23 tablet by ity o f XL 25 mg 24 00:00: mouth 2 [place] [facility] tablet 00 (two) Medical times [place] daily. LEVOTHYROXI 2020- Yes [id number] TAKE 1 [facility] [place] 50 mcg 0-23 TABLET BY ity o f tablet 00:00: MOUTH [place] 00 EVERY DAY Medical IN THE Branch MORNING metoprolol 2020- Yes [id number] 25mg Take 1 [facility] n[facility] succinate 0-23 tablet by ity o f XL 25 mg 24 00:00: mouth 2 [place] tablet 00 (two) Medical times Branch daily. LEVOTHYROXI 2020- Yes [id number] TAKE 1 [facility] [place] 50 mcg 0-23 TABLET BY ity o f tablet 00:00: MOUTH [place] 00 EVERY DAY Medical IN THE Branch MORNING metoprolol 2020- Yes [id number] 25mg Take 1 U nivers succinate 0-23 tablet by ity o f XL 25 mg 24 00:00: mouth [facility] [place] tablet 00 (two) Medical times Branch daily. LEVOTHYROXI 2020-1 Yes [id number] TAKE 1 [facility] [place] 50 mcg 0-23 TABLET BY ity o f tablet 00:00: MOUTH [place] 00 EVERY DAY Medical IN THE Branch MORNING metoprolol 2019- Yes [id number] 25mg Take 1 U nivers succinate 0-23 tablet by ity o f XL 25 mg 24 00:00: mouth [facility] [place] tablet 00 (two) Medical times Branch daily. LEVOTHYROXI 2020- Yes [id number] TAKE 1 [facility] [place] 50 mcg 0-23 TABLET BY ity o f tablet 00:00: MOUTH [place] 00 EVERY DAY Medical IN THE Branch MORNING metoprolol 2019- Yes [id number] 25mg Take 1 U nivers succinate 0-23 tablet by ity o f XL 25 mg 24 00:00: mouth 2 [place] [facility] tablet 00 (two) Medical times [place] daily. LEVOTHYROXI 2020- Yes [id number] TAKE 1 [facility] [place] 50 mcg 0-23 TABLET BY ity o f tablet 00:00: MOUTH [place] 00 EVERY DAY Medical IN THE Branch MORNING metoprolol 2019- Yes [id number] 25mg Take 1 U nivers succinate 0-23 tablet by ity o f XL 25 mg 24 00:00: mouth 2 [place] tablet 00 (two) Medical times Branch daily. LEVOTHYROXI 2020- Yes [id number] TAKE 1 [facility] [place] 50 mcg 0-23 TABLET BY ity o f tablet 00:00: MOUTH [place] 00 EVERY DAY Medical IN THE Branch MORNING metoprolol 2019- Yes [id number] 25mg Take 1 U nivers succinate 0-23 tablet by ity o f XL 25 mg 24 00:00: mouth 2 [place] tablet 00 (two) Medical times Branch daily. LEVOTHYROXI 2020-1 Yes [id number] TAKE 1 [facility] [place] 50 mcg 0-23 TABLET BY ity o f tablet 00:00: MOUTH [place] 00 EVERY DAY Medical IN THE Branch MORNING metoprolol 2020- Yes [id number] 25mg Take 1 U nivers succinate 0-23 tablet by ity o f XL 25 mg 24 00:00: mouth 2 [place] tablet 00 (two) Medical times Branch daily. LEVOTHYROXI 2020-1 Yes [id number] TAKE 1 [facility] [place] 50 mcg 0-23 TABLET BY ity o f tablet 00:00: MOUTH [place] 00 EVERY DAY Medical IN THE [place] MORNING metoprolol 2020- Yes [id number] 25mg Take 1 [facility] nivers succinate 0-23 tablet by ity o f XL 25 mg 24 00:00: mouth 2 [place] [facility] tablet 00 (two) Medical times [place] daily. LEVOTHYROXI 2020- Yes [id number] TAKE 1 [facility] [place] 50 mcg 0-23 TABLET BY ity o f tablet 00:00: MOUTH [place] 00 EVERY DAY Medical IN THE [place] MORNING metoprolol 2019- Yes [id number] 25mg Take 1 [facility] n[facility] succinate 0-23 tablet by ity o f XL 25 mg 24 00:00: mouth 2 [place] [facility] tablet 00 (two) Medical times [place] daily. LEVOTHYROXI 2019- Yes [id number] TAKE 1 [facility] [place] 50 mcg 0-23 TABLET BY ity o f tablet 00:00: MOUTH [place] 00 EVERY DAY Medical IN THE [place] MORNING metoprolol 2019- Yes [id number] 25mg Take 1 U nivers succinate 0-23 tablet by ity o f XL 25 mg 24 00:00: mouth 2 [place] [facility] tablet 00 (two) Medical times [place] daily. LEVOTHYROXI 2019- Yes [id number] TAKE 1 [facility] [place] 50 mcg 0-23 TABLET BY ity o f tablet 00:00: MOUTH [place] 00 EVERY DAY Medical IN THE [place] MORNING metoprolol 2019- Yes [id number] 25mg Take 1 U nivers succinate 0-23 tablet by ity o f XL 25 mg 24 00:00: mouth 2 [place] [facility] tablet 00 (two) Medical times [place] daily. LEVOTHYROXI 2020- Yes [id number] TAKE 1 [facility] [place] 50 mcg 0-23 TABLET BY ity o f tablet 00:00: MOUTH [place] 00 EVERY DAY Medical IN THE [place] MORNING metoprolol 2019- Yes [id number] 25mg Take 1 U nivers succinate 0-23 tablet by ity o f XL 25 mg 24 00:00: mouth 2 [place] [facility] tablet 00 (two) Medical times [place] daily. LEVOTHYROXI 2020- Yes [id number] TAKE 1 [facility] [place] 50 mcg 0-23 TABLET BY ity o f tablet 00:00: MOUTH [place] 00 EVERY DAY Medical IN THE [place] MORNING LEVOTHYROXI 2020- Yes [id number] TAKE 1 [facility] [place] 50 mcg 0-23 TABLET BY ity o f tablet 00:00: MOUTH [place] 00 EVERY DAY Medical IN THE [facility] LEVOTHYROXI 2019-09 Yes [id number] TAKE 1 [facility] [place] 50 mcg 0-23 TABLET BY ity o f tablet 00:00: MOUTH [place] 00 EVERY DAY Medical IN THE [facility] LEVOTHYROXI 2019-09 Yes [id number] TAKE 1 [facility] [place] 50 mcg 0-23 TABLET BY ity o f tablet 00:00: MOUTH [place] 00 EVERY DAY Medical IN THE [facility] LEVOTHYROXI 2019-09 Yes [id number] TAKE 1 [facility] [place] 50 mcg 0-23 TABLET BY ity o f tablet 00:00: MOUTH [place] 00 EVERY DAY [facility] [place] LEVOTHYROXI 2019-09 Yes [id number] TAKE 1 [facility] NE 50 mcg 0-23 TABLET BY ity o f tablet 00:00: MOUTH [place] 00 EVERY DAY Medical IN THE [facility] LEVOTHYROXI 2019-09 Yes [id number] TAKE 1 [facility] NE 50 mcg 0-23 TABLET BY ity o f tablet 00:00: MOUTH [place] 00 EVERY DAY Medical IN THE [facility] LEVOTHYROXI 2019-09 Yes [id number] TAKE 1 [facility] NE 50 mcg 0-23 TABLET BY ity o f tablet 00:00: MOUTH [place] 00 EVERY DAY Medical IN THE [facility] LEVOTHYROXI 2019-09 Yes [id number] TAKE 1 [facility] NE 50 mcg 0-23 TABLET BY ity o f tablet 00:00: MOUTH [place] 00 EVERY DAY Medical IN THE [facility] LEVOTHYROXI 2019-09 Yes [id number] TAKE 1 [facility] NE 50 mcg 0-23 TABLET BY ity o f tablet 00:00: MOUTH [place] 00 EVERY DAY Medical IN THE [facility] LEVOTHYROXI 2019-09 Yes [id number] TAKE 1 [facility] NE 50 mcg 0-23 TABLET BY ity o f tablet 00:00: MOUTH [place] 00 EVERY DAY Medical IN THE [facility] LEVOTHYROXI 2019-09 Yes [id number] TAKE 1 [facility] NE 50 mcg 0-23 TABLET BY ity o f tablet 00:00: MOUTH [place] 00 EVERY DAY Medical IN THE [facility] LEVOTHYROXI 2019-09 Yes [id number] TAKE 1 [facility] NE 50 mcg 0-23 TABLET BY ity o f tablet 00:00: MOUTH [place] 00 EVERY DAY Medical IN THE [facility] LEVOTHYROXI 2019-09 Yes [id number] TAKE 1 [facility] NE 50 mcg 0-23 TABLET BY ity o f tablet 00:00: MOUTH [place] 00 EVERY DAY Medical IN THE [facility] LEVOTHYROXI 2020 Yes [id number] TAKE 1 [facility] NE 50 mcg 0-23 TABLET BY ity o f tablet 00:00: MOUTH [place] 00 EVERY DAY Medical IN THE [facility] LEVOTHYROXI 2019-09 Yes [id number] TAKE 1 [facility] NE 50 mcg 0-23 TABLET BY ity o f tablet 00:00: MOUTH [place] 00 EVERY DAY Medical IN THE [facility] LEVOTHYROXI 2019-09 Yes [id number] TAKE 1 [facility] NE 50 mcg 0-23 TABLET BY ity o f tablet 00:00: MOUTH [place] 00 EVERY DAY Medical IN THE [facility] LEVOTHYROXI 2019-09 Yes [id number] TAKE 1 [facility] NE 50 mcg 0-23 TABLET BY ity o f tablet 00:00: MOUTH [place] 00 EVERY DAY Medical IN THE [facility] LEVOTHYROXI 2019-09 Yes [id number] TAKE 1 [facility] NE 50 mcg 0-23 TABLET BY ity o f tablet 00:00: MOUTH [place] 00 EVERY DAY Medical IN THE [facility] LEVOTHYROXI 2019-09 Yes [id number] TAKE 1 [facility] NE 50 mcg 0-23 TABLET BY ity o f tablet 00:00: MOUTH [place] 00 EVERY DAY Medical IN THE [facility] LEVOTHYROXI 2019-09 Yes [id number] TAKE 1 [facility] NE 50 mcg 0-23 TABLET BY ity o f tablet 00:00: MOUTH [place] 00 EVERY DAY Medical IN THE [facility] LEVOTHYROXI 2019-09 Yes [id number] TAKE 1 [facility] NE 50 mcg 0-23 TABLET BY ity o f tablet 00:00: MOUTH [place] 00 EVERY DAY Medical IN THE [facility] LEVOTHYROXI 2019-09 Yes [id number] TAKE 1 [facility] NE 50 mcg 0-23 TABLET BY ity o f tablet 00:00: MOUTH [place] 00 EVERY DAY Medical IN THE [facility] LEVOTHYROXI 2019-09 Yes [id number] TAKE 1 [facility] NE 50 mcg 0-23 TABLET BY ity o f tablet 00:00: MOUTH [place] 00 EVERY DAY Medical IN THE [facility] LEVOTHYROXI 2019-09 Yes [id number] TAKE 1 [facility] NE 50 mcg 0-23 TABLET BY ity o f tablet 00:00: MOUTH [place] 00 EVERY DAY Medical IN THE [facility] LEVOTHYROXI 2019-09 Yes [id number] TAKE 1 [facility] NE 50 mcg 0-23 TABLET BY ity o f tablet 00:00: MOUTH [place] 00 EVERY DAY Medical IN THE [place] MORNING LEVOTHYROXI 2019-09 Yes [id number] TAKE 1 [facility] NE 50 mcg 0-23 TABLET BY ity o f tablet 00:00: MOUTH [place] 00 EVERY DAY Medical IN THE [facility] LEVOTHYROXI 2019-09 Yes [id number] TAKE 1 [facility] NE 50 mcg 0-23 TABLET BY ity o f tablet 00:00: MOUTH [place] 00 EVERY DAY Medical IN THE [facility] LEVOTHYROXI 2019-09 Yes [id number] TAKE 1 [facility] NE 50 mcg 0-23 TABLET BY ity o f tablet 00:00: MOUTH [place] 00 EVERY DAY Medical IN THE [facility] LEVOTHYROXI 2019-09 Yes [id number] TAKE 1 [facility] NE 50 mcg 0-23 TABLET BY ity o f tablet 00:00: MOUTH [place] 00 EVERY DAY Medical IN THE [facility] LEVOTHYROXI 2019-09 Yes [id number] TAKE 1 [facility] NE 50 mcg 0-23 TABLET BY ity o f tablet 00:00: MOUTH [place] 00 EVERY DAY Medical IN THE [facility] LEVOTHYROXI 2019-09 Yes [id number] TAKE 1 [facility] NE 50 mcg 0-23 TABLET BY ity o f tablet 00:00: MOUTH [place] 00 EVERY DAY Medical IN THE [facility] LEVOTHYROXI 2019-09- No [id number] TAKE 1 [facility] NE 50 mcg 0-23 05-05 TABLET BY ity of tablet 00:00: 00:00 MOUTH [place] 00 :00 EVERY DAY Medical IN THE [place] MORNING metoprolol 2019-09- No [id number] 25mg Take 1 [facility] succinate 0-23 12-09 tablet by ity of XL 25 mg 24 00:00: 00:00 mouth 2 [place] hr tablet 00 :00 (two) Medical times [place] daily. metoprolol 2019-09- No [id number] 25mg Take 1 [facility] succinate 0-23 12-09 tablet by ity of XL 25 mg 24 00:00: 00:00 mouth 2 [place] hr tablet 00 :00 (two) Medical times [place] daily. metoprolol 2019-09- No [id number] 25mg Take 1 [facility] succinate 0-23 12-09 tablet by ity of XL 25 mg 24 00:00: 00:00 mouth 2 [place] hr tablet 00 :00 (two) Medical times [place] daily. ASCORBATE 2019-09 2020- No Take by Univ ers CALCIUM 0-05 10-05 mouth. ity of (VITAMIN C 20:39: 00:00 [place] ORAL) 59 :00 Medical Branch ASCORBATE 2019- 2020- No Take by Univ ers CALCIUM 0-05 10-05 mouth. ity of (VITAMIN C 20:39: 00:00 [place] ORAL) 59 :00 Medical Branch CYCLOSPORIN 2019- Yes Place in [place] (RESTASIS 0-05 each eye. ity of OPHTHALMIC) 20:35: Medical Branch DOCOSAHEXAN 2019- Yes Take by Uni vers OIC 0-05 mouth. ity of ACID/EPA 20:35: [place] (FISH OIL 33 Medical ORAL) Branch vitamin [...] OIC 0-05 mouth. ity of ACID/EPA 20:35: (FISH OIL 33 Medical ORAL) Branch vitamin [...] ity of OPHTHALMIC) 20:35: Medical Branch DOCOSAHEXAN 2019-1 Yes Take by Uni vers OIC 0-05 mouth. ity of ACID/EPA 20:35: [place] (FISH OIL 33 Medical ORAL) Branch vitamin [...] OIC 0-05 mouth. ity of ACID/EPA 20:35: [place] (FISH OIL 33 Medical ORAL) Branch vitamin E 2019-09 Yes 1000U Take 1,000 U nivers 1,000 unit 0-05 Units by ity o f capsule 20:35: mouth [place] 33 daily. Medical Branch Magnesium 2019-09 Yes Take by Unive rs 250 mg Tab 0-05 mouth. ity of 20:35: [place] [address] Medical Branch vitamin B-6 2019-09 Yes 100mg Take 100 U nivers (VITAMIN 0-05 mg by ity of B-6) 100 mg 20:35: mouth [place] tablet 33 daily. Medical Branch CYCLOSPORIN 2019-[address] in [place] (RESTASIS 0-05 each eye. ity of OPHTHALMIC) 20:35: Medical Branch DOCOSAHEXAN 2019-09 Yes Take by Uni vers OIC 0-05 mouth. ity of ACID/EPA 20:35: [place] (FISH OIL 33 Medical ORAL) Branch vitamin E 2019-09 Yes 1000U Take 1,000 U nivers 1,000 unit 0-05 Units by ity o f capsule 20:35: mouth [place] 33 daily. Medical Branch Magnesium 2019- Yes Take by [facility] 250 mg Tab 0-05 mouth. ity of 20:35: [place] [address] Medical Branch vitamin B-6 2019-09 Yes 100mg [...] OIC 0-05 mouth. ity of ACID/EPA 20:35: [place] (FISH OIL 33 Medical ORAL) Branch vitamin [...] 33 daily. Medical Branch metoprolol 2019-09 Yes [id number] 25mg Take 1 U nivers succinate 0-05 tablet by ity o f XL 25 mg 24 00:00: mouth [place] hr tablet 00 every day Medic al at 1200 Branch (noon). metformin 2019-09 Yes [id number] 750mg Take 1 U nivers ER 750 mg 0-05 tablet by ity o f 24 hr 00:00: mouth 2 [place] tablet 00 (two) Medical times Branch daily with meals. DOSE INCREASE. metoprolol 2019-09 Yes [id number] 25mg Take 1 U nivers succinate 0-05 tablet by ity o f XL 25 mg 24 00:00: mouth [place] hr tablet 00 every day Medic al at 1200 Branch (noon). metformin 2019-09 Yes [id number] 750mg Take 1 U nivers ER 750 mg 0-05 tablet by ity o f 24 hr 00:00: mouth 2 [place] tablet 00 (two) Medical times Branch daily with meals. DOSE INCREASE. metoprolol 2019-09 Yes [id number] 25mg Take 1 U nivers succinate 0-05 tablet by ity o f XL 25 mg 24 00:00: mouth [place] hr tablet 00 every day Medic al at 1200 Branch (noon). metformin 2019-09 Yes [id number] 750mg Take 1 U nivers ER 750 mg 0-05 tablet by ity o f 24 hr 00:00: mouth 2 [place] tablet 00 (two) Medical times [place] daily with meals. DOSE INCREASE. metoprolol 2019-09 Yes [id number] 25mg Take 1 U nivers succinate 0-05 tablet by ity o f XL 25 mg 24 00:00: mouth [place] hr tablet 00 every day Medic al at 1200 Branch (noon). metformin 2019-09 Yes [id number] 750mg Take 1 U nivers ER 750 mg 0-05 tablet by ity o f 24 hr 00:00: mouth 2 [place] tablet 00 (two) Medical times Branch daily with meals. DOSE INCREASE. metoprolol 2019-09 Yes [id number] 25mg Take 1 U nivers succinate 0-05 tablet by ity o f XL 25 mg 24 00:00: mouth [place] hr tablet 00 every day Medic al at 1200 Branch (noon). metformin 2019- Yes [id number] 750mg Take 1 U nivers ER 750 mg 0-05 tablet by ity o f 24 hr 00:00: mouth 2 [place] tablet 00 (two) Medical times Branch daily with meals. DOSE INCREASE. metoprolol 2019- Yes [id number] 25mg Take 1 U nivers succinate 0-05 tablet by ity o f XL 25 mg 24 00:00: mouth [place] hr tablet 00 every day Medic al at 1200 Branch (noon). metformin 2019- Yes [id number] 750mg Take 1 U nivers ER 750 mg 0-05 tablet by ity o f 24 hr 00:00: mouth 2 [place] tablet 00 (two) Medical times Branch daily with meals. DOSE INCREASE. metoprolol 2019- Yes [id number] 25mg Take 1 U nivers succinate 0-05 tablet by ity o f XL 25 mg 24 00:00: mouth [place] hr tablet 00 every day Medic al at 1200 Branch (noon). metformin 2019- Yes [id number] 750mg Take 1 U nivers ER 750 mg 0-05 tablet by ity o f 24 hr 00:00: mouth 2 [place] tablet 00 (two) Medical times Branch daily with meals. DOSE INCREASE. metoprolol 2019- Yes [id number] 25mg Take 1 U nivers succinate 0-05 tablet by ity o f XL 25 mg 24 00:00: mouth [place] hr tablet 00 every day Medic al at 1200 Branch (noon). metformin 2019- Yes [id number] 750mg Take 1 U nivers ER 750 mg 0-05 tablet by ity o f 24 hr 00:00: mouth 2 [place] tablet 00 (two) Medical times Branch daily with meals. DOSE INCREASE. metformin 2019- Yes [id number] 750mg Take 1 U nivers ER 750 mg 0-05 tablet by ity o f 24 hr 00:00: mouth 2 [place] tablet 00 (two) Medical times Branch daily with meals. DOSE INCREASE. metformin 2019- Yes [id number] 750mg Take 1 U nivers ER 750 mg 0-05 tablet by ity o f 24 hr 00:00: mouth 2 [place] tablet 00 (two) Medical times Branch daily with meals. DOSE INCREASE. metformin 2019- Yes [id number] 750mg Take 1 U nivers ER 750 mg 0-05 tablet by ity o f 24 hr 00:00: mouth 2 [place] tablet 00 (two) Medical times Branch daily with meals. DOSE INCREASE. metformin 2019-09 Yes [id number] 750mg Take 1 U nivers ER 750 mg 0-05 tablet by ity o f 24 hr 00:00: mouth 2 [place] tablet 00 (two) Medical times Branch daily with meals. DOSE INCREASE. metformin 2019-09 Yes [id number] 750mg Take 1 U nivers ER 750 mg 0-05 tablet by ity o f 24 hr 00:00: mouth 2 [place] tablet 00 (two) Medical times Branch daily with meals. DOSE INCREASE. metformin 2019-09 Yes [id number] 750mg Take 1 U nivers ER 750 mg 0-05 tablet by ity o f 24 hr 00:00: mouth 2 [place] tablet 00 (two) Medical times Branch daily with meals. DOSE INCREASE. metformin 2019-09 Yes [id number] 750mg Take 1 U nivers ER 750 mg 0-05 tablet by ity o f 24 hr 00:00: mouth 2 [place] tablet 00 (two) Medical times Branch daily with meals. DOSE INCREASE. metformin 2019-09 Yes [id number] 750mg Take 1 U nivers ER 750 mg 0-05 tablet by ity o f 24 hr 00:00: mouth 2 [place] tablet 00 (two) Medical times Branch daily with meals. DOSE INCREASE. metformin 2019-09 Yes [id number] 750mg Take 1 U nivers ER 750 mg 0-05 tablet by ity o f 24 hr 00:00: mouth 2 [place] tablet 00 (two) Medical times Branch daily with meals. DOSE INCREASE. metformin 2019-09 Yes [id number] 750mg Take 1 U nivers ER 750 mg 0-05 tablet by ity o f 24 hr 00:00: mouth 2 [place] tablet 00 (two) Medical times Branch daily with meals. DOSE INCREASE. metformin 2019-09 2020- No [id number] 750mg Take 1 [facility] ER 750 mg 0-05 11-28 tablet by ity of 24 hr 00:00: 00:00 mouth 2 [place] tablet 00 :00 (two) Medical times Branch daily with meals. DOSE INCREASE. metoprolol 2019-09 2020- No [id number] 25mg Take 1 [facility] succinate 0-05 10-23 tablet by ity of XL 25 mg 24 00:00: 00:00 mouth [place] hr tablet 00 :00 every day Medic al at 1200 Branch (noon). metoprolol 2020-1 2020- No [id number] 25mg Take 1 [facility] succinate 0-05 10-23 tablet by ity of XL 25 mg 24 00:00: 00:00 mouth [place] hr tablet 00 :00 every day Medic al at 1200 Branch (noon). alcaftadine 2020-[address] [facility] [place] (LASTACAFT) 9 each eye. ity of 0.25 % Drop 19:20: [place] [address] Medical Branch CYCLOSPORIN 2020-[address] in [place] (RESTASIS 06-09 each eye. ity of OPHTHALMIC) 19:20: [place] [address] Medical Branch ASCORBATE 2020-0 Yes Take by Unive rs CALCIUM 06-09 mouth. ity of (VITAMIN C 19:20: [place] ORAL) 49 Medical Branch DOCOSAHEXAN 2020-0 Yes Take by Uni vers OIC 06-09 mouth. ity of ACID/EPA 19:20: [place] (FISH OIL 49 Medical ORAL) Branch vitamin E 2020-0 Yes 1000U Take 1,000 U nivers 1,000 unit 06-09 Units by ity o f capsule 19:20: mouth [place] 49 daily. Medical Branch Magnesium 2020-0 Yes Take by Unive rs 250 mg Tab 06-09 mouth. ity of 19:20: [place] [address] Medical Branch vitamin B-6 2020-0 Yes 100mg Take 100 U nivers (VITAMIN - mg by ity of B-6) 100 mg 19:20: mouth [place] tablet 49 daily. Medical Branch CALCIUM 2020-0 Yes Take by Univers CARBONATE/V 06-09 mouth. ity of ITAMIN D3 19:20: [place] (VITAMIN 49 Medical D-3 ORAL) Branch alcaftadine 2020-[address] in [place] (LASTACAFT) 06-09 each eye. ity of 0.25 % Drop 19:20: [place] [address] Medical Branch CYCLOSPORIN 2020-[address] in [place] (RESTASIS 06-09 each eye. ity of OPHTHALMIC) 19:20: [place] [address] Medical Branch ASCORBATE 2020-0 Yes Take by Unive rs CALCIUM 06-09 mouth. ity of (VITAMIN C 19:20: [place] ORAL) 49 Medical Branch DOCOSAHEXAN 2020-0 Yes Take by Uni vers OIC 06-09 mouth. ity of ACID/EPA 19:20: [place] (FISH OIL 49 Medical ORAL) Branch vitamin E 2020-0 Yes 1000U Take 1,000 U nivers 1,000 unit 9-23 Units by ity o f capsule 19:20: mouth [place] 49 daily. Medical Branch Magnesium 2020-0 Yes Take by Unive rs 250 mg Tab - mouth. ity of 19:20: [place] [address] Medical Branch vitamin B-6 2020-0 Yes 100mg Take 100 U nivers (VITAMIN 9-23 mg by ity of B-6) 100 mg 19:20: mouth [place] tablet 49 daily. Medical Branch CALCIUM 2020-0 Yes Take by Univers CARBONATE/V 06-09 mouth. ity of ITAMIN D3 19:20: [place] (VITAMIN 49 Medical D-3 ORAL) Branch alcaftadine 2020-[address] in [place] (LASTACAFT) 9 each eye. ity of 0.25 % Drop 19:20: [place] [address] Medical Branch CYCLOSPORIN 2020-[address] in [place] (RESTASIS 9 each eye. ity of OPHTHALMIC) 19:20: [place] [address] Medical Branch ASCORBATE 2020-0 Yes Take by Unive rs CALCIUM - mouth. ity of (VITAMIN C 19:20: [place] ORAL) 49 Medical Branch DOCOSAHEXAN 2020-0 Yes Take by Uni vers OIC 06-09 mouth. ity of ACID/EPA 19:20: [place] (FISH OIL 49 Medical ORAL) Branch vitamin E 2020-0 Yes 1000U Take 1,000 U nivers 1,000 unit 9-23 Units by ity o f capsule 19:20: mouth [place] 49 daily. Medical Branch Magnesium 2020-0 Yes Take by Unive rs 250 mg Tab 06-09 mouth. ity of 19:20: [place] [address] Medical Branch vitamin B-6 2020-0 Yes 100mg Take 100 U nivers (VITAMIN 9-23 mg by ity of B-6) 100 mg 19:20: mouth [place] tablet 49 daily. Medical Branch CALCIUM 2020-0 Yes Take by Univers CARBONATE/V 06-09 mouth. ity of ITAMIN D3 19:20: [place] (VITAMIN 49 Medical D-3 ORAL) Branch alcaftadine 2020-[address] [place] (LASTACAFT) 9 each eye. ity of 0.25 % Drop 19:20: [place] [address] Medical Branch CYCLOSPORIN 2020-[address] in [place] (RESTASIS 9-23 each eye. ity of OPHTHALMIC) 19:20: [place] [address] Medical Branch ASCORBATE 2020-0 Yes Take by Unive rs CALCIUM - mouth. ity of (VITAMIN C 19:20: [place] ORAL) 49 Medical Branch DOCOSAHEXAN 2020-0 Yes Take by Uni vers OIC 06-09 mouth. ity of ACID/EPA 19:20: [place] (FISH OIL 49 Medical ORAL) Branch vitamin E 2020-0 Yes 1000U Take 1,000 U nivers 1,000 unit 9-23 Units by ity o f capsule 19:20: mouth [place] 49 daily. Medical Branch Magnesium 2020-0 Yes Take by Unive rs 250 mg Tab 06-09 mouth. ity of 19:20: [place] [address] Medical Branch vitamin B-6 2020-0 Yes 100mg Take 100 U nivers (VITAMIN 9-23 mg by ity of B-6) 100 mg 19:20: mouth [place] tablet 49 daily. Medical Branch CALCIUM 2020-0 Yes Take by Univers CARBONATE/V 06-09 mouth. ity of ITAMIN D3 19:20: [place] (VITAMIN 49 Medical D-3 ORAL) Branch alcaftadine 2020-[address] in [place] (LASTACAFT) 06-09 each eye. ity of 0.25 % Drop 19:20: [place] [address] Medical Branch CYCLOSPORIN 2020-[address] in [place] (RESTASIS 06-09 each eye. ity of OPHTHALMIC) 19:20: [place] [address] Medical Branch ASCORBATE 2020-0 Yes Take by Unive rs CALCIUM 06-09 mouth. ity of (VITAMIN C 19:20: [place] ORAL) 49 Medical Branch DOCOSAHEXAN 2020-0 Yes Take by Uni vers OIC 06-09 mouth. ity of ACID/EPA 19:20: [place] (FISH OIL 49 Medical ORAL) Branch vitamin E 2020-0 Yes 1000U Take 1,000 U nivers 1,000 unit 9-23 Units by ity o f capsule 19:20: mouth [place] 49 daily. Medical Branch Magnesium 2020-0 Yes Take by Unive rs 250 mg Tab 06-09 mouth. ity of 19:20: [place] [address] Medical Branch vitamin B-6 2020-0 Yes 100mg Take 100 U nivers (VITAMIN 9-23 mg by ity of B-6) 100 mg 19:20: mouth [place] tablet 49 daily. Medical Branch CALCIUM 2020-0 Yes Take by Univers CARBONATE/V 06-09 mouth. ity of ITAMIN D3 19:20: [place] (VITAMIN 49 Medical D-3 ORAL) Branch alcaftadine 2020-[address] [place] (LASTACAFT) 06-09 each eye. ity of 0.25 % Drop 19:20: [place] [address] Medical Branch CYCLOSPORIN 2020-[address] in [place] (RESTASIS 06-09 each eye. ity of OPHTHALMIC) 19:20: [place] [address] Medical Branch ASCORBATE 2020-0 Yes Take by Unive rs CALCIUM 06-09 mouth. ity of (VITAMIN C 19:20: [place] ORAL) 49 Medical Branch DOCOSAHEXAN 2020-0 Yes Take by Uni vers OIC 06-09 mouth. ity of ACID/EPA 19:20: [place] (FISH OIL 49 Medical ORAL) Branch vitamin E 2020-0 Yes 1000U Take 1,000 U nivers 1,000 unit 06-09 Units by ity o f capsule 19:20: mouth [place] 49 daily. Medical Branch Magnesium 2020-0 Yes Take by [employer] rs 250 mg Tab 06-09 mouth. ity of 19:20: [place] [address] Medical Branch vitamin B-6 2020-0 Yes 100mg Take 100 U nivers (VITAMIN - mg by ity of B-6) 100 mg 19:20: mouth [place] tablet 49 daily. Medical Branch CALCIUM 2020-0 Yes Take by Univers CARBONATE/V 06-09 mouth. ity of ITAMIN D3 19:20: [place] (VITAMIN 49 Medical D-3 ORAL) Branch alcaftadine 2020-[address] in [place] (LASTACAFT) 06-09 each eye. ity of 0.25 % Drop 19:20: [place] [address] Medical Branch CALCIUM 2020-0 Yes Take by Univers CARBONATE/V 06-09 mouth. ity of ITAMIN D3 19:20: [place] (VITAMIN 49 Medical D-3 ORAL) Branch alcaftadine 2020-[address] in [place] (LASTACAFT) 06-09 each eye. ity of 0.25 % Drop 19:20: [place] [address] Medical Branch CALCIUM 2020-0 Yes Take by [facility] CARBONATE/V 06-09 mouth. ity of ITAMIN D3 19:20: [place] (VITAMIN 49 Medical D-3 ORAL) Branch alcaftadine 2020-[address] [place] (LASTACAFT) 06-09 each eye. ity of 0.25 % Drop 19:20: [place] 49 Medical Branch CALCIUM 2020-0 Yes Take by [facility] CARBONATE/V 06-09 mouth. ity of ITAMIN D3 19:20: [place] (VITAMIN 49 Medical D-3 ORAL) Branch alcaftadine 2020-[address] [place] (LASTACAFT) 06-09 each eye. ity of 0.25 % Drop 19:20: [place] 49 Medical Branch CALCIUM 2020-0 Yes Take by [facility] CARBONATE/V 06-09 mouth. ity of ITAMIN D3 19:20: [place] (VITAMIN 49 Medical D-3 ORAL) Branch alcaftadine 2020-[address] [place] (LASTACAFT) 06-09 each eye. ity of 0.25 % Drop 19:20: [place] 49 Medical Branch CALCIUM 2020-0 Yes Take by [facility] CARBONATE/V 06-09 mouth. ity of ITAMIN D3 19:20: [place] (VITAMIN 49 Medical D-3 ORAL) Branch alcaftadine 2020-[address] [place] (LASTACAFT) 06-09 each eye. ity of 0.25 % Drop 19:20: [place] 49 Medical Branch CALCIUM 2020-0 Yes Take by [facility] CARBONATE/V 06-09 mouth. ity of ITAMIN D3 19:20: [place] (VITAMIN 49 Medical D-3 ORAL) Branch alcaftadine 2020-[address] in [place] (LASTACAFT) 06-09 each eye. ity of 0.25 % Drop 19:20: [place] [address] Medical Branch CALCIUM 2020-0 Yes Take by [facility] CARBONATE/V 06-09 mouth. ity of ITAMIN D3 19:20: [place] (VITAMIN 49 Medical D-3 ORAL) Branch alcaftadine 2020-[address] [place] (LASTACAFT) 06-09 each eye. ity of 0.25 % Drop 19:20: [place] 49 Medical Branch CALCIUM 2020-0 Yes Take by [facility] CARBONATE/V - mouth. ity of ITAMIN D3 19:20: [place] (VITAMIN 49 Medical D-3 ORAL) Branch metoprolol 2020-0 Yes [id number] 25mg Take 1 U nivers succinate 9- tablet by ity o f XL 25 mg 24 00:00: mouth at [place] hr tablet 00 bedtime. Medica l Branch metoprolol 2020-0 Yes [id number] 25mg Take 1 U nivers succinate 9-23 tablet by ity o f XL 25 mg 24 00:00: mouth at [place] hr tablet 00 bedtime. Medica l Branch metoprolol 2020-0 Yes [id number] 25mg Take 1 U nivers succinate 9-23 tablet by ity o f XL 25 mg 24 00:00: mouth at [place] hr tablet 00 bedtime. Medica l Branch metoprolol 2020-0 Yes [id number] 25mg Take 1 U nivers succinate 9-23 tablet by ity o f XL 25 mg 24 00:00: mouth at [place] hr tablet 00 bedtime. Medica l Branch metoprolol 2020-0 Yes [id number] 25mg Take 1 U nivers succinate 9-23 tablet by ity o f XL 25 mg 24 00:00: mouth at [place] hr tablet 00 bedtime. Medica l Branch metoprolol 2020-0 Yes [id number] 25mg Take 1 U nivers succinate 9-23 tablet by ity o f XL 25 mg 24 00:00: mouth at [place] hr tablet 00 bedtime. Medica l Branch metoprolol 2020-0 Yes [id number] 25mg Take 1 U nivers succinate 9-23 tablet by ity o f XL 25 mg 24 00:00: mouth at [place] hr tablet 00 bedtime. Medica l Branch metoprolol 2020-0 2020- No [id number] 25mg Take 1 [facility] succinate 9-23 10-05 tablet by ity of XL 25 mg 24 00:00: 00:00 mouth at [place] hr tablet 00 :00 bedtime. Medica l Branch metoprolol 2020-0 2020- No [id number] 25mg Take 1 [facility] succinate 9-23 10-05 tablet by ity of XL 25 mg 24 00:00: 00:00 mouth at [place] hr tablet 00 :00 bedtime. Medica l Branch LOSARTAN 25 2020-0 Yes [id number] TAKE 1 Univers mg tablet 9-22 TABLET BY ity o f 00:00: MOUTH [place] 00 EVERY DAY Medical Branch LOSARTAN 25 2020-0 2020- No [id number] TAKE 1 [facility] mg tablet 9-08 06-23 TABLET BY ity of 00:00: 00:00 MOUTH [place] 00 :00 EVERY DAY Medical Branch losartan 25 2020-0 Yes [id number] 25mg Take 1 [facility] mg tablet 9-21 tablet by ity o f 00:00: mouth [place] 00 daily. Medical Branch traZODone 2020-0 Yes [id number] 100mg Take 1 [facility] 100 mg 9-21 tablet by ity of tablet 00:00: mouth at [place] 00 bedtime as Medical needed for Branch Insomnia. losartan 25 2020-0 Yes [id number] 25mg Take 1 [facility] mg tablet 9-21 tablet by ity o f 00:00: mouth [place] 00 daily. Medical Branch traZODone 2020-0 Yes [id number] 100mg Take 1 [facility] 100 mg 9-21 tablet by ity of tablet 00:00: mouth at [place] 00 bedtime as Medical needed for Branch Insomnia. traZODone 2020-0 Yes [id number] 100mg Take 1 [facility] 100 mg 9-21 tablet by ity of tablet 00:00: mouth at [place] 00 bedtime as Medical needed for Branch Insomnia. traZODone 2020-0 Yes [id number] 100mg Take 1 [facility] 100 mg 9-21 tablet by ity of tablet 00:00: mouth at [place] 00 bedtime as Medical needed for Branch Insomnia. traZODone 2020-0 Yes [id number] 100mg Take 1 [facility] 100 mg 9-21 tablet by ity of tablet 00:00: mouth at [place] 00 bedtime as Medical needed for Branch Insomnia. traZODone 2020-0 Yes [id number] 100mg Take 1 [facility] 100 mg 9-21 tablet by ity of tablet 00:00: mouth at [place] 00 bedtime as Medical needed for Branch Insomnia. traZODone 2020-0 Yes [id number] 100mg Take 1 [facility] 100 mg 9-21 tablet by ity of tablet 00:00: mouth at [place] 00 bedtime as Medical needed for Branch Insomnia. traZODone 2020-0 Yes [id number] 100mg Take 1 [facility] 100 mg 9-21 tablet by ity of tablet 00:00: mouth at [place] 00 bedtime as Medical needed for Branch Insomnia. traZODone 2020-0 Yes [id number] 100mg Take 1 [facility] 100 mg 9-21 tablet by ity of tablet 00:00: mouth at [place] 00 bedtime as Medical needed for Branch Insomnia. traZODone 2020-0 Yes [id number] 100mg Take 1 [facility] 100 mg 9-21 tablet by ity of tablet 00:00: mouth at [place] 00 bedtime as Medical needed for Branch Insomnia. traZODone 2020-0 Yes [id number] 100mg Take 1 [facility] 100 mg 9-21 tablet by [facility] tablet 00:00: mouth at [place] 00 bedtime as Medical needed for Branch Insomnia. traZODone 2020-0 Yes [id number] 100mg Take 1 [facility] 100 mg 9-21 tablet by [facility] of tablet 00:00: mouth at [place] 00 bedtime as Medical needed for Branch Insomnia. traZODone 2020-0 Yes [id number] 100mg Take 1 [facility] 100 mg 9-21 tablet by [facility] of tablet 00:00: mouth at [place] 00 bedtime as Medical needed for Branch Insomnia. traZODone 2020-0 Yes [id number] 100mg Take 1 [facility] 100 mg 9-21 tablet by [facility] of tablet 00:00: mouth at [place] 00 bedtime as Medical needed for Branch Insomnia. traZODone 2020-0 Yes [id number] 100mg Take 1 [facility] 100 mg 9-21 tablet by [facility] of tablet 00:00: mouth at [place] 00 bedtime as Medical needed for Branch Insomnia. traZODone 2020-0 Yes [id number] 100mg Take 1 [facility] 100 mg 9-21 tablet by [facility] of tablet 00:00: mouth at [place] [address] bedtime as Medical needed for Branch Insomnia. traZODone 2020-0 Yes [id number] 100mg Take 1 [facility] 100 mg 9-21 tablet by [facility] of tablet 00:00: mouth at [place] 00 bedtime as Medical needed for Branch Insomnia. traZODone 2020-0 Yes [id number] 100mg Take 1 [facility] 100 mg 9-21 tablet by [facility] of tablet 00:00: mouth at [place] 00 bedtime as Medical needed for Branch Insomnia. traZODone 2020-0 Yes [id number] 100mg Take 1 [facility] 100 mg 9-21 tablet by [facility] of tablet 00:00: mouth at [place] 00 bedtime as Medical needed for Branch Insomnia. traZODone 2020-0 Yes [id number] 100mg Take 1 [facility] 100 mg 9-21 tablet by [facility] of tablet 00:00: mouth at [place] 00 bedtime as Medical needed for Branch Insomnia. traZODone 2020-0 Yes [id number] 100mg Take 1 [facility] 100 mg 9-21 tablet by [facility] of tablet 00:00: mouth at [place] 00 bedtime as Medical needed for Branch Insomnia. traZODone 2020-0 Yes [id number] 100mg Take 1 [facility] 100 mg 9-21 tablet by [facility] of tablet 00:00: mouth at [place] 00 bedtime as Medical needed for Branch Insomnia. traZODone 2020-0 Yes [id number] 100mg Take 1 [facility] 100 mg 9-21 tablet by [facility] of tablet 00:00: mouth at [place] 00 bedtime as Medical needed for Branch Insomnia. traZODone 2020-0 Yes [id number] 100mg Take 1 [facility] 100 mg 9-21 tablet by [facility] of tablet 00:00: mouth at [place] 00 bedtime as Medical needed for Branch Insomnia. traZODone 2020-0 Yes [id number] 100mg Take 1 [facility] 100 mg 9-21 tablet by [facility] of tablet 00:00: mouth at [place] 00 bedtime as Medical needed for Branch Insomnia. traZODone 2020-0 Yes [id number] 100mg Take 1 [facility] 100 mg 9-21 tablet by [facility] of tablet 00:00: mouth at [place] 00 bedtime as Medical needed for Branch Insomnia. traZODone 2020-0 Yes [id number] 100mg Take 1 [facility] 100 mg 9-21 tablet by [facility] of tablet 00:00: mouth at [place] [address] bedtime as Medical needed for Branch Insomnia. traZODone 2020-0 Yes [id number] 100mg Take 1 [facility] 100 mg 9-21 tablet by [facility] tablet 00:00: mouth at [place] [address] bedtime as Medical needed for Branch Insomnia. traZODone 2020-0 Yes [id number] 100mg Take 1 [facility] 100 mg 9-21 tablet by [facility] of tablet 00:00: mouth at [place] 00 bedtime as Medical needed for Branch Insomnia. traZODone 2020-0 Yes [id number] 100mg Take 1 [facility] 100 mg 9-21 tablet by [facility] of tablet 00:00: mouth at [place] 00 bedtime as Medical needed for Branch Insomnia. traZODone 2020-0 Yes [id number] 100mg Take 1 [facility] 100 mg 9-21 tablet by [facility] of tablet 00:00: mouth at [place] 00 bedtime as Medical needed for Branch Insomnia. traZODone 2020-0 Yes [id number] 100mg Take 1 [facility] 100 mg 9-21 tablet by [facility] of tablet 00:00: mouth at [place] 00 bedtime as Medical needed for Branch Insomnia. traZODone 2020-0 Yes [id number] 100mg Take 1 [facility] 100 mg 9-21 tablet by [facility] of tablet 00:00: mouth at [place] 00 bedtime as Medical needed for Branch Insomnia. traZODone 2020-0 Yes [id number] 100mg Take 1 [facility] 100 mg 9-21 tablet by [facility] of tablet 00:00: mouth at [place] 00 bedtime as Medical needed for Branch Insomnia. traZODone 2020-0 Yes [id number] 100mg Take 1 [facility] 100 mg 9-21 tablet by [facility] of tablet 00:00: mouth at [place] 00 bedtime as Medical needed for Branch Insomnia. traZODone 2020-0 Yes [id number] 100mg Take 1 [facility] 100 mg 9-21 tablet by [facility] of tablet 00:00: mouth at [place] 00 bedtime as Medical needed for Branch Insomnia. traZODone 2020-0 Yes [id number] 100mg Take 1 [facility] 100 mg 9-21 tablet by [facility] of tablet 00:00: mouth at [place] 00 bedtime as Medical needed for Branch Insomnia. traZODone 2020-0 Yes [id number] 100mg Take 1 [facility] 100 mg 9-21 tablet by [facility] of tablet 00:00: mouth at [place] 00 bedtime as Medical needed for Branch Insomnia. traZODone 2020-0 Yes [id number] 100mg Take 1 [facility] 100 mg 9-21 tablet by [facility] of tablet 00:00: mouth at [place] 00 bedtime as Medical needed for Branch Insomnia. traZODone 2020-0 Yes [id number] 100mg Take 1 [facility] 100 mg 9-21 tablet by [facility] of tablet 00:00: mouth at [place] 00 bedtime as Medical needed for Branch Insomnia. traZODone 2020-0 Yes [id number] 100mg Take 1 [facility] 100 mg 9-21 tablet by [facility] of tablet 00:00: mouth at [place] 00 bedtime as Medical needed for Branch Insomnia. traZODone 2020-0 Yes [id number] 100mg Take 1 [facility] 100 mg 9-21 tablet by [facility] of tablet 00:00: mouth at [place] 00 bedtime as Medical needed for Branch Insomnia. traZODone 2020-0 Yes [id number] 100mg Take 1 [facility] 100 mg 9-21 tablet by [facility] of tablet 00:00: mouth at [place] 00 bedtime as Medical needed for Branch Insomnia. traZODone 2020-0 Yes [id number] 100mg Take 1 [facility] 100 mg 9-21 tablet by [facility] of tablet 00:00: mouth at [place] 00 bedtime as Medical needed for Branch Insomnia. traZODone 2020-0 Yes [id number] 100mg Take 1 [facility] 100 mg 9-21 tablet by [facility] tablet 00:00: mouth at [place] 00 bedtime as Medical needed for Branch Insomnia. traZODone 2020-0 Yes [id number] 100mg Take 1 [facility] 100 mg 9-21 tablet by [facility] tablet 00:00: mouth at [place] 00 bedtime as Medical needed for Branch Insomnia. traZODone 2020-0 Yes [id number] 100mg Take 1 [facility] 100 mg 9-21 tablet by [facility] tablet 00:00: mouth at [place] 00 bedtime as Medical needed for Branch Insomnia. traZODone 2020-0 Yes [id number] 100mg Take 1 [facility] 100 mg 9-21 tablet by [facility] of tablet 00:00: mouth at [place] 00 bedtime as Medical needed for Branch Insomnia. traZODone 2020-0 Yes [id number] 100mg Take 1 [facility] 100 mg 9-21 tablet by [facility] of tablet 00:00: mouth at [place] 00 bedtime as Medical needed for Branch Insomnia. traZODone 2020-0 Yes [id number] 100mg Take 1 [facility] 100 mg 9-21 tablet by [facility] of tablet 00:00: mouth at [place] 00 bedtime as Medical needed for Branch Insomnia. traZODone 2020-0 Yes [id number] 100mg Take 1 [facility] 100 mg 9-21 tablet by [facility] tablet 00:00: mouth at [place] 00 bedtime as Medical needed for Branch Insomnia. traZODone 2020-0 Yes [id number] 100mg Take 1 [facility] 100 mg 9-21 tablet by [facility] of tablet 00:00: mouth at [place] 00 bedtime as Medical needed for Branch Insomnia. traZODone 2020-0 Yes [id number] 100mg Take 1 [facility] 100 mg 9-21 tablet by [facility] of tablet 00:00: mouth at [place] 00 bedtime as Medical needed for Branch Insomnia. traZODone 2020-0 Yes [id number] 100mg Take 1 [facility] 100 mg 9-21 tablet by [facility] tablet 00:00: mouth at [place] 00 bedtime as Medical needed for Branch Insomnia. traZODone 2020-0 Yes [id number] 100mg Take 1 [facility] 100 mg 9-21 tablet by [facility] of tablet 00:00: mouth at [place] 00 bedtime as Medical needed for Branch Insomnia. traZODone 2020-0 Yes [id number] 100mg Take 1 [facility] 100 mg 9-21 tablet by [facility] of tablet 00:00: mouth at [place] 00 bedtime as Medical needed for Branch Insomnia. traZODone 2020-0 Yes [id number] 100mg Take 1 [facility] 100 mg 9-21 tablet by [facility] of tablet 00:00: mouth at [place] 00 bedtime as Medical needed for Branch Insomnia. traZODone 2020-0 Yes [id number] 100mg Take 1 [facility] 100 mg 9-21 tablet by [facility] tablet 00:00: mouth at [place] 00 bedtime as Medical needed for Branch Insomnia. traZODone 2020-0 Yes [id number] 100mg Take 1 [facility] 100 mg 9-21 tablet by [facility] tablet 00:00: mouth at [place] 00 bedtime as Medical needed for Branch Insomnia. traZODone 2020-0 Yes [id number] 100mg Take 1 [facility] 100 mg 9-21 tablet by [facility] of tablet 00:00: mouth at [place] 00 bedtime as Medical needed for Branch Insomnia. traZODone 2020-0 Yes [id number] 100mg Take 1 [facility] 100 mg 9-21 tablet by [facility] of tablet 00:00: mouth at [place] 00 bedtime as Medical needed for Branch Insomnia. traZODone 2020-0 Yes [id number] 100mg Take 1 [facility] 100 mg 9-21 tablet by [facility] tablet 00:00: mouth at [place] 00 bedtime as Medical needed for Branch Insomnia. traZODone 2020-0 Yes [id number] 100mg Take 1 [facility] 100 mg 9-21 tablet by [facility] tablet 00:00: mouth at [place] 00 bedtime as Medical needed for Branch Insomnia. traZODone 2020-0 202- No [id number] 100mg Take 1 [facility] 100 mg 9-21 03-18 tablet by [facility] tablet 00:00: 00:00 mouth at [place] 00 :00 bedtime as Medical needed for Branch Insomnia. losartan 25 2019-0 2019- No [id number] 25mg Take 1 [facility] mg tablet 9-21 -22 tablet by [facility] of 00:00: 00:00 mouth [place] 00 :00 daily. Medical Branch NaCl 0.9% 2019-2019- No 1000mL at 999 [facility] vers (NS) bolus 9-17 09- mL/hr, it[facility] of infusion 20:30: 22:00 1,000 mL, Edward as 1,000 mL 00 :00 IV Medical Infusion, Branch ONCE, 1 dose, Sarah 06/03/20 at 1530, BASIL RAMELTEON 8 2019-0 Yes [id number] 8mg TAKE 1 [facility] mg tablet 9-16 TABLET BY ity o f 00:00: MOUTH AT [place] 00 BEDTIME Medical NEEDED FOR Branch INSOMNIA. STOP TRAZODONE. RAMELTEON 8 2019-0 Yes [id number] 8mg TAKE 1 [facility] mg tablet 9-16 TABLET BY ity o f 00:00: MOUTH AT [place] 00 BEDTIME Medical NEEDED FOR Branch INSOMNIA. STOP TRAZODONE. RAMELTEON 8 2019-0 Yes [id number] 8mg TAKE 1 [facility] mg tablet 9-16 TABLET BY ity o f 00:00: MOUTH AT [place] 00 BEDTIME Medical NEEDED FOR Branch INSOMNIA. STOP TRAZODONE. RAMELTEON 8 2020- No [id number] 8mg TAKE 1 [facility] mg tablet -02 06- TABLET BY ity of 00:00: 00:00 MOUTH AT [place] 00 :00 BEDTIME Medical NEEDED FOR Branch INSOMNIA. STOP TRAZODONE. RAMELTEON 8 2019- 2020- No [id number] 8mg TAKE 1 [facility] mg tablet -02 06- TABLET BY ity of 00:00: 00:00 MOUTH AT [place] 00 :00 BEDTIME Medical NEEDED FOR Branch INSOMNIA. STOP TRAZODONE. oxyCODONE-a 2020- No 1{tbl} Take 1 [facility] n[facility] cetaminophe 9-10 09-10 tablet by it y of n 7.5-325 22:39: 00:00 [place] per 20 :00 (two) Medical tablet times Branch daily as needed for Pain. TRIAMTERENE 2019-0 Yes [id number] TAKE 2 [facility] -HYDROCHLOR 9-08 TABLETS BY it y of OTHIAZID 00:00: MOUTH [place] 37.5-25 mg 00 EVERY DAY Medi kacey tablet Branch TRIAMTERENE 2019-0 Yes [id number] TAKE 2 [facility] -HYDROCHLOR 9-08 TABLETS BY it y of OTHIAZID 00:00: MOUTH [place] 37.5-25 mg 00 EVERY DAY Medi kacey tablet Branch TRIAMTERENE 2020-0 Yes [id number] TAKE 2 [facility] -HYDROCHLOR 9-08 TABLETS BY it y of OTHIAZID 00:00: MOUTH [place] 37.5-25 mg 00 EVERY DAY Medi kacey tablet Branch TRIAMTERENE 2020-0 Yes [id number] TAKE 2 [facility] -HYDROCHLOR 9-08 TABLETS BY it y of OTHIAZID 00:00: MOUTH [place] 37.5-25 mg 00 EVERY DAY Medi kacey tablet Branch TRIAMTERENE 2020-0 Yes [id number] TAKE 2 [facility] -HYDROCHLOR 9-08 TABLETS BY it y of OTHIAZID 00:00: MOUTH [place] 37.5-25 mg 00 EVERY DAY Medi kacey tablet Branch TRIAMTERENE 2020-0 Yes [id number] TAKE 2 [facility] -HYDROCHLOR 9-08 TABLETS BY it y of OTHIAZID 00:00: MOUTH [place] 37.5-25 mg 00 EVERY DAY Medi kacey tablet Branch TRIAMTERENE 2020-0 Yes [id number] TAKE 2 [facility] -HYDROCHLOR 9-08 TABLETS BY it y of OTHIAZID 00:00: MOUTH [place] 37.5-25 mg 00 EVERY DAY Medi kacey tablet Branch TRIAMTERENE 2020-0 Yes [id number] TAKE 2 [facility] -HYDROCHLOR 9-08 TABLETS BY it y of OTHIAZID 00:00: MOUTH [place] 37.5-25 mg 00 EVERY DAY Medi kacey tablet Branch TRIAMTERENE 2020-0 Yes [id number] TAKE 2 [facility] -HYDROCHLOR 9-08 TABLETS BY it y of OTHIAZID 00:00: MOUTH [place] 37.5-25 mg 00 EVERY DAY Medi kacey tablet Branch TRIAMTERENE 2020-0 Yes [id number] TAKE 2 [facility] -HYDROCHLOR 9-08 TABLETS BY it y of OTHIAZID 00:00: MOUTH [place] 37.5-25 mg 00 EVERY DAY Medi kacey tablet Branch TRIAMTERENE 2020-0 Yes [id number] TAKE 2 [facility] -HYDROCHLOR 9-08 TABLETS BY it y of OTHIAZID 00:00: MOUTH [place] 37.5-25 mg 00 EVERY DAY Medi kacey tablet Branch TRIAMTERENE 2020-0 Yes [id number] TAKE 2 [facility] -HYDROCHLOR 9-08 TABLETS BY it y of OTHIAZID 00:00: MOUTH [place] 37.5-25 mg 00 EVERY DAY Medi kacey tablet Branch TRIAMTERENE 2020-0 Yes [id number] TAKE 2 [facility] -HYDROCHLOR 9-08 TABLETS BY it y of OTHIAZID 00:00: MOUTH [place] 37.5-25 mg 00 EVERY DAY Medi kacey tablet Branch TRIAMTERENE 2020-0 Yes [id number] TAKE 2 [facility] -HYDROCHLOR 9-08 TABLETS BY it y of OTHIAZID 00:00: MOUTH [place] 37.5-25 mg 00 EVERY DAY Medi kacey tablet Branch TRIAMTERENE 2020-0 Yes [id number] TAKE 2 [facility] -HYDROCHLOR 9-08 TABLETS BY it y of OTHIAZID 00:00: MOUTH [place] 37.5-25 mg 00 EVERY DAY Medi kacey tablet Branch TRIAMTERENE 2020-0 Yes [id number] TAKE 2 [facility] -HYDROCHLOR 9-08 TABLETS BY it y of OTHIAZID 00:00: MOUTH [place] 37.5-25 mg 00 EVERY DAY Medi kacey tablet [facility] TRIAMTERENE 2020-0 Yes [id number] TAKE 2 [facility] -HYDROCHLOR 9-08 TABLETS BY it y of OTHIAZID 00:00: MOUTH [place] 37.5-25 mg 00 EVERY DAY Medi kacey tablet [facility] TRIAMTERENE 2020-0 Yes [id number] TAKE 2 [facility] -HYDROCHLOR 9-08 TABLETS BY it y of OTHIAZID 00:00: MOUTH [place] 37.5-25 mg 00 EVERY DAY Medi k[facility] tablet [facility] TRIAMTERENE 2020-0 Yes [id number] TAKE 2 [facility] -HYDROCHLOR 9-08 TABLETS BY it y of OTHIAZID 00:00: MOUTH [place] 37.5-25 mg 00 EVERY DAY [facility]i kacey tablet [facility] TRIAMTERENE 2020-0 Yes [id number] TAKE 2 [facility] -HYDROCHLOR 9-08 TABLETS BY it y of OTHIAZID 00:00: MOUTH [place] 37.5-25 mg 00 EVERY DAY Medi kacey tablet Branch TRIAMTERENE 2020-0 Yes [id number] TAKE 2 [facility] -HYDROCHLOR 9-08 TABLETS BY it y of OTHIAZID 00:00: MOUTH [place] 37.5-25 mg 00 EVERY DAY Medi kacey tablet Branch TRIAMTERENE 2020-0 Yes [id number] TAKE 2 [facility] -HYDROCHLOR 9-08 TABLETS BY it y of OTHIAZID 00:00: MOUTH [place] 37.5-25 mg 00 EVERY DAY Medi kacey tablet Branch TRIAMTERENE 2020-0 Yes [id number] TAKE 2 [facility] -HYDROCHLOR 9-08 TABLETS BY it y of OTHIAZID 00:00: MOUTH [place] 37.5-25 mg 00 EVERY DAY Medi kacey tablet Branch TRIAMTERENE 2020-0 Yes [id number] TAKE 2 [facility] -HYDROCHLOR 9-08 TABLETS BY it y of OTHIAZID 00:00: MOUTH [place] 37.5-25 mg 00 EVERY DAY Medi kacey tablet Branch TRIAMTERENE 2020-0 Yes [id number] TAKE 2 [facility] -HYDROCHLOR 9-08 TABLETS BY it y of OTHIAZID 00:00: MOUTH [place] 37.5-25 mg 00 EVERY DAY Medi kacey tablet Branch TRIAMTERENE 2020-0 Yes [id number] TAKE 2 [facility] -HYDROCHLOR 9-08 TABLETS BY it y of OTHIAZID 00:00: MOUTH [place] 37.5-25 mg 00 EVERY DAY Medi kacey tablet Branch TRIAMTERENE 2020-0 Yes [id number] TAKE 2 [facility] -HYDROCHLOR 9-08 TABLETS BY it y of OTHIAZID 00:00: MOUTH [place] 37.5-25 mg 00 EVERY DAY Medi kacey tablet Branch TRIAMTERENE 2020-0 Yes [id number] TAKE 2 [facility] -HYDROCHLOR 9-08 TABLETS BY it y of OTHIAZID 00:00: MOUTH [place] 37.5-25 mg 00 EVERY DAY Medi kacey tablet Branch TRIAMTERENE 2020-0 Yes [id number] TAKE 2 [facility] -HYDROCHLOR 9-08 TABLETS BY it y of OTHIAZID 00:00: MOUTH [place] 37.5-25 mg 00 EVERY DAY Medi kacey tablet Branch TRIAMTERENE 2020-0 Yes [id number] TAKE 2 [facility] -HYDROCHLOR 9-08 TABLETS BY it y of OTHIAZID 00:00: MOUTH [place] 37.5-25 mg 00 EVERY DAY Medi kacey tablet Branch TRIAMTERENE 2020-0 Yes [id number] TAKE 2 [facility] -HYDROCHLOR 9-08 TABLETS BY it y of OTHIAZID 00:00: MOUTH [place] 37.5-25 mg 00 EVERY DAY Medi kacey tablet Branch TRIAMTERENE 2020-0 Yes [id number] TAKE 2 [facility] -HYDROCHLOR 9-08 TABLETS BY it y of OTHIAZID 00:00: MOUTH [place] 37.5-25 mg 00 EVERY DAY Medi kacey tablet Branch TRIAMTERENE 2020-0 Yes [id number] TAKE 2 [facility] -HYDROCHLOR 9-08 TABLETS BY it y of OTHIAZID 00:00: MOUTH [place] 37.5-25 mg 00 EVERY DAY Medi kacey tablet Branch TRIAMTERENE 2020-0 Yes [id number] TAKE 2 [facility] -HYDROCHLOR 9-08 TABLETS BY it y of OTHIAZID 00:00: MOUTH [place] 37.5-25 mg 00 EVERY DAY Medi kacey tablet Branch TRIAMTERENE 2020-0 2020- No [id number] TAKE 2 [facility] -HYDROCHLOR - 12-07 TABLETS BY i ty of OTHIAZID 00:00: 00:00 MOUTH [place] 37.5-25 mg 00 :00 EVERY DAY Medi kacey tablet Branch TRIAMTERENE 2020-0 2020- No [id number] TAKE 2 [facility] -HYDROCHLOR - 12- TABLETS BY i ty of OTHIAZID 00:00: 00:00 MOUTH [place] 37.5-25 mg 00 :00 EVERY DAY Medi kacey tablet Branch Dexlansopra 2020-0 Yes [id number] 60mg Take 1 [facility] zole 8-24 capsule by ity of (DEXILANT) 00:00: mouth [place] 60 mg 00 daily. Medical capsule STOP Branch ESOMEPRAZO LE. ramelteon 8 2019-0 Yes [id number] 8mg Take 1 [facility] mg tablet 8-24 tablet by ity o f 00:00: mouth at [place] 00 bedtime as Medical needed for Branch Insomnia. STOP TRAZODONE. Dexlansopra 2020-0 Yes [id number] 60mg Take 1 [facility] zole 8-24 capsule by ity of (DEXILANT) 00:00: mouth [place] 60 mg 00 daily. Medical capsule STOP Branch ESOMEPRAZO LE. ramelteon 8 2019-0 Yes [id number] 8mg Take 1 [facility] mg tablet 8-24 tablet by ity o f 00:00: mouth at [place] 00 bedtime as Medical needed for Branch Insomnia. STOP TRAZODONE. Dexlansopra 2020-0 Yes [id number] 60mg Take 1 [facility] zole 8-24 capsule by ity of (DEXILANT) 00:00: mouth [place] 60 mg 00 daily. Medical capsule STOP Branch ESOMEPRAZO LE. ramelteon 8 2020-0 Yes [id number] 8mg Take 1 [facility] mg tablet 8-24 tablet by ity o f 00:00: mouth at [place] 00 bedtime as Medical needed for Branch Insomnia. STOP TRAZODONE. Dexlansopra 2020-0 Yes [id number] 60mg Take 1 [facility] zole 8-24 capsule by ity of (DEXILANT) 00:00: mouth [place] 60 mg 00 daily. Medical capsule STOP Branch ESOMEPRAZO LE. ramelteon 8 2020-0 Yes [id number] 8mg Take 1 [facility] mg tablet 8-24 tablet by ity o f 00:00: mouth at [place] 00 bedtime as Medical needed for Branch Insomnia. STOP TRAZODONE. Dexlansopra 2020-0 Yes [id number] 60mg Take 1 [facility] zole 8-24 capsule by ity of (DEXILANT) 00:00: mouth [place] 60 mg 00 daily. Medical capsule STOP Branch ESOMEPRAZO LE. ramelteon 8 2020-0 Yes [id number] 8mg Take 1 [facility] mg tablet 8-24 tablet by ity o f 00:00: mouth at [place] 00 bedtime as Medical needed for Branch Insomnia. STOP TRAZODONE. Dexlansopra 2020-0 Yes [id number] 60mg Take 1 [facility] zole 8-24 capsule by ity of (DEXILANT) 00:00: mouth [place] 60 mg 00 daily. Medical capsule STOP Branch ESOMEPRAZO LE. Dexlansopra 2020-0 Yes [id number] 60mg Take 1 [facility] zole 8-24 capsule by ity of (DEXILANT) 00:00: mouth [place] 60 mg 00 daily. Medical capsule STOP Branch ESOMEPRAZO LE. Dexlansopra 2020-0 Yes [id number] 60mg Take 1 [facility] zole 8-24 capsule by ity of (DEXILANT) 00:00: mouth [place] 60 mg 00 daily. Medical capsule STOP Branch ESOMEPRAZO LE. Dexlansopra 2020-0 Yes [id number] 60mg Take 1 [facility] zole 8-24 capsule by ity of (DEXILANT) 00:00: mouth [place] 60 mg 00 daily. Medical capsule STOP Branch ESOMEPRAZO LE. Dexlansopra 2020-0 Yes [id number] 60mg Take 1 [facility] zole 8-24 capsule by ity of (DEXILANT) 00:00: mouth [place] 60 mg 00 daily. Medical capsule STOP Branch ESOMEPRAZO LE. Dexlansopra 2020-0 Yes [id number] 60mg Take 1 [facility] zole 8-24 capsule by ity of (DEXILANT) 00:00: mouth [place] 60 mg 00 daily. Medical capsule STOP Branch ESOMEPRAZO LE. Dexlansopra 2020-0 Yes [id number] 60mg Take 1 [facility] zole 8-24 capsule by ity of (DEXILANT) 00:00: mouth [place] 60 mg 00 daily. Medical capsule STOP Branch ESOMEPRAZO LE. Dexlansopra 2020-0 Yes [id number] 60mg Take 1 [facility] zole 8-24 capsule by ity of (DEXILANT) 00:00: mouth [place] 60 mg 00 daily. Medical capsule STOP Branch ESOMEPRAZO LE. Dexlansopra 2020-0 Yes [id number] 60mg Take 1 [facility] zole 8-24 capsule by ity of (DEXILANT) 00:00: mouth [place] 60 mg 00 daily. Medical capsule STOP Branch ESOMEPRAZO LE. Dexlansopra 2020-0 Yes [id number] 60mg Take 1 [facility] zole 8-24 capsule by ity of (DEXILANT) 00:00: mouth [place] 60 mg 00 daily. Medical capsule STOP Branch ESOMEPRAZO LE. Dexlansopra 2020-0 Yes [id number] 60mg Take 1 [facility] zole 8-24 capsule by ity of (DEXILANT) 00:00: mouth [place] 60 mg 00 daily. Medical capsule STOP Branch ESOMEPRAZO LE. Dexlansopra 2020-0 Yes [id number] 60mg Take 1 [facility] zole 8-24 capsule by ity of (DEXILANT) 00:00: mouth [place] 60 mg 00 daily. Medical capsule STOP Branch ESOMEPRAZO LE. Dexlansopra 2020-0 Yes [id number] 60mg Take 1 [facility] zole 8-24 capsule by ity of (DEXILANT) 00:00: mouth [place] 60 mg 00 daily. Medical capsule STOP Branch ESOMEPRAZO LE. Dexlansopra 2020-0 Yes [id number] 60mg Take 1 [facility] zole 8-24 capsule by ity of (DEXILANT) 00:00: mouth [place] 60 mg 00 daily. Medical capsule STOP Branch ESOMEPRAZO LE. Dexlansopra 2020-0 Yes [id number] 60mg Take 1 [facility] zole 8-24 capsule by ity of (DEXILANT) 00:00: mouth [place] 60 mg 00 daily. Medical capsule STOP Branch ESOMEPRAZO LE. Dexlansopra 2020-0 Yes [id number] 60mg Take 1 [facility] zole 8-24 capsule by ity of (DEXILANT) 00:00: mouth [place] 60 mg 00 daily. Medical capsule STOP Branch ESOMEPRAZO LE. Dexlansopra 2020-0 Yes [id number] 60mg Take 1 [facility] zole 8-24 capsule by ity of (DEXILANT) 00:00: mouth [place] 60 mg 00 daily. Medical capsule STOP Branch ESOMEPRAZO LE. Dexlansopra 2020-0 Yes [id number] 60mg Take 1 [facility] zole 8-24 capsule by ity of (DEXILANT) 00:00: mouth [place] 60 mg 00 daily. Medical capsule STOP Branch ESOMEPRAZO LE. Dexlansopra 2020-0 Yes [id number] 60mg Take 1 [facility] zole 8-24 capsule by ity of (DEXILANT) 00:00: mouth [place] 60 mg 00 daily. Medical capsule STOP Branch ESOMEPRAZO LE. Dexlansopra 2020-0 Yes [id number] 60mg Take 1 [facility] zole 8-24 capsule by ity of (DEXILANT) 00:00: mouth [place] 60 mg 00 daily. Medical capsule STOP Branch ESOMEPRAZO LE. Dexlansopra 2020-0 Yes [id number] 60mg Take 1 [facility] zole 8-24 capsule by ity of (DEXILANT) 00:00: mouth [place] 60 mg 00 daily. Medical capsule STOP Branch ESOMEPRAZO LE. Dexlansopra 2020-0 Yes [id number] 60mg Take 1 [facility] zole 8-24 capsule by ity of (DEXILANT) 00:00: mouth [place] 60 mg 00 daily. Medical capsule STOP Branch ESOMEPRAZO LE. Dexlansopra 2020-0 Yes [id number] 60mg Take 1 [facility] zole 8-24 capsule by ity of (DEXILANT) 00:00: mouth [place] 60 mg 00 daily. Medical capsule STOP Branch ESOMEPRAZO LE. Dexlansopra 2020-0 Yes [id number] 60mg Take 1 [facility] zole 8-24 capsule by ity of (DEXILANT) 00:00: mouth [place] 60 mg 00 daily. Medical capsule STOP Branch ESOMEPRAZO LE. Dexlansopra 2020-0 Yes [id number] 60mg Take 1 [facility] zole 8-24 capsule by ity of (DEXILANT) 00:00: mouth [place] 60 mg 00 daily. Medical capsule STOP Branch ESOMEPRAZO LE. Dexlansopra 2020-0 Yes [id number] 60mg Take 1 [facility] zole 8-24 capsule by ity of (DEXILANT) 00:00: mouth [place] 60 mg 00 daily. Medical capsule STOP Branch ESOMEPRAZO LE. Dexlansopra 2020-0 Yes [id number] 60mg Take 1 [facility] zole 8-24 capsule by ity of (DEXILANT) 00:00: mouth [place] 60 mg 00 daily. Medical capsule STOP Branch ESOMEPRAZO LE. Dexlansopra 2020-0 Yes [id number] 60mg Take 1 [facility] zole 8-24 capsule by ity of (DEXILANT) 00:00: mouth [place] 60 mg 00 daily. Medical capsule STOP Branch ESOMEPRAZO LE. Dexlansopra 2020-0 Yes [id number] 60mg Take 1 [facility] zole 8-24 capsule by ity of (DEXILANT) 00:00: mouth [place] 60 mg 00 daily. Medical capsule STOP Branch ESOMEPRAZO LE. Dexlansopra 2020-0 Yes [id number] 60mg Take 1 [facility] zole 8-24 capsule by ity of (DEXILANT) 00:00: mouth [place] 60 mg 00 daily. Medical capsule STOP Branch ESOMEPRAZO LE. Dexlansopra 2020-0 Yes [id number] 60mg Take 1 [facility] zole 8-24 capsule by ity of (DEXILANT) 00:00: mouth [place] 60 mg 00 daily. Medical capsule STOP Branch ESOMEPRAZO LE. Dexlansopra 2020-0 Yes [id number] 60mg Take 1 [facility] zole 8-24 capsule by ity of (DEXILANT) 00:00: mouth [place] 60 mg 00 daily. Medical capsule STOP Branch ESOMEPRAZO LE. Dexlansopra 2020-0 Yes [id number] 60mg Take 1 [facility] zole 8-24 capsule by ity of (DEXILANT) 00:00: mouth [place] 60 mg 00 daily. Medical capsule STOP Branch ESOMEPRAZO LE. Dexlansopra 2020-0 Yes [id number] 60mg Take 1 [facility] zole 8-24 capsule by ity of (DEXILANT) 00:00: mouth [place] 60 mg 00 daily. Medical capsule STOP Branch ESOMEPRAZO LE. Dexlansopra 2020-0 Yes [id number] 60mg Take 1 [facility] zole 8-24 capsule by ity of (DEXILANT) 00:00: mouth [place] 60 mg 00 daily. Medical capsule STOP Branch ESOMEPRAZO LE. Dexlansopra 2020-0 Yes [id number] 60mg Take 1 [facility] zole 8-24 capsule by [facility] of (DEXILANT) 00:00: mouth [place] 60 mg 00 daily. Medical capsule STOP Branch ESOMEPRAZO LE. Dexlansopra 2020-0 Yes [id number] 60mg Take 1 [facility] zole 8-24 capsule by ity of (DEXILANT) 00:00: mouth [place] 60 mg 00 daily. Medical capsule STOP Branch ESOMEPRAZO LE. Dexlansopra 2020-0 Yes [id number] 60mg Take 1 [facility] zole 8-24 capsule by ity of (DEXILANT) 00:00: mouth [place] 60 mg 00 daily. Medical capsule STOP Branch ESOMEPRAZO LE. Dexlansopra 2020-0 Yes [id number] 60mg Take 1 [facility] zole 8-24 capsule by ity of (DEXILANT) 00:00: mouth [place] 60 mg 00 daily. Medical capsule STOP Branch ESOMEPRAZO LE. Dexlansopra 2020-0 Yes [id number] 60mg Take 1 [facility] zole 8-24 capsule by ity of (DEXILANT) 00:00: mouth [place] 60 mg 00 daily. Medical capsule STOP Branch ESOMEPRAZO LE. Dexlansopra 2020-0 Yes [id number] 60mg Take 1 [facility] zole 8-24 capsule by ity of (DEXILANT) 00:00: mouth [place] 60 mg 00 daily. Medical capsule STOP Branch ESOMEPRAZO LE. Dexlansopra 2020-0 Yes [id number] 60mg Take 1 [facility] zole 8-24 capsule by ity of (DEXILANT) 00:00: mouth [place] 60 mg 00 daily. Medical capsule STOP Branch ESOMEPRAZO LE. Dexlansopra 2020-0 Yes [id number] 60mg Take 1 [facility] zole 8-24 capsule by ity of (DEXILANT) 00:00: mouth [place] 60 mg 00 daily. Medical capsule STOP Branch ESOMEPRAZO LE. Dexlansopra 2020-0 Yes [id number] 60mg Take 1 [facility] zole 8-24 capsule by ity of (DEXILANT) 00:00: mouth [place] 60 mg 00 daily. Medical capsule STOP Branch ESOMEPRAZO LE. Dexlansopra 2020-0 Yes [id number] 60mg Take 1 [facility] zole 8-24 capsule by ity of (DEXILANT) 00:00: mouth [place] 60 mg 00 daily. Medical capsule STOP Branch ESOMEPRAZO LE. Dexlansopra 2020-0 Yes [id number] 60mg Take 1 [facility] zole 8-24 capsule by ity of (DEXILANT) 00:00: mouth [place] 60 mg 00 daily. Medical capsule STOP Branch ESOMEPRAZO LE. Dexlansopra 2020-0 Yes [id number] 60mg Take 1 [facility] zole 8-24 capsule by ity of (DEXILANT) 00:00: mouth [place] 60 mg 00 daily. Medical capsule STOP Branch ESOMEPRAZO LE. Dexlansopra 2020-0 2020- No [id number] 60mg Take 1 [facility] zole 8-24 12-22 capsule by ity of (DEXILANT) 00:00: 00:00 mouth [place] 60 mg 00 :00 daily. Medical capsule STOP Branch ESOMEPRAZO LE. ramelteon 8 2020-0 2020- No [id number] 8mg Take 1 [facility] mg tablet -10 06-16 tablet by ity of 00:00: 00:00 mouth at [place] 00 :00 bedtime as Medical needed for Branch Insomnia. STOP TRAZODONE. IBANDRONATE 2020-0 Yes [id number] 150mg TAKE 1 [facility] 150 mg 7-31 TABLET BY ity of tablet 00:00: MOUTH ONCE [place] 00 EVERY Medical MONTH. Branch IBANDRONATE 2020-0 Yes [id number] 150mg TAKE 1 [facility] 150 mg 7-31 TABLET BY ity of tablet 00:00: MOUTH ONCE [place] 00 EVERY Medical MONTH. Branch IBANDRONATE 2020-0 Yes [id number] 150mg TAKE 1 [facility] 150 mg 7-31 TABLET BY ity of tablet 00:00: MOUTH ONCE [place] 00 EVERY Medical MONTH. Branch IBANDRONATE 2020-0 Yes [id number] 150mg TAKE 1 [facility] 150 mg 7-31 TABLET BY ity of tablet 00:00: MOUTH ONCE [place] 00 EVERY Medical MONTH. Branch IBANDRONATE 2020-0 Yes [id number] 150mg TAKE 1 [facility] 150 mg 7-31 TABLET BY ity of tablet 00:00: MOUTH ONCE [place] 00 EVERY Medical MONTH. Branch IBANDRONATE 2020-0 Yes [id number] 150mg TAKE 1 [facility] 150 mg 7-31 TABLET BY ity of tablet 00:00: MOUTH ONCE [place] 00 EVERY Medical MONTH. Branch IBANDRONATE 2020-0 Yes [id number] 150mg TAKE 1 [facility] 150 mg 7-31 TABLET BY ity of tablet 00:00: MOUTH ONCE [place] 00 EVERY Medical MONTH. Branch IBANDRONATE 2020-0 Yes [id number] 150mg TAKE 1 [facility] 150 mg 7-31 TABLET BY ity of tablet 00:00: MOUTH ONCE [place] 00 EVERY Medical MONTH. Branch IBANDRONATE 2020-0 Yes [id number] 150mg TAKE 1 [facility] 150 mg 7-31 TABLET BY ity of tablet 00:00: MOUTH ONCE [place] 00 EVERY Medical MONTH. Branch IBANDRONATE 2020-0 Yes [id number] 150mg TAKE 1 [facility] 150 mg 7-31 TABLET BY ity of tablet 00:00: MOUTH ONCE [place] 00 EVERY Medical MONTH. Branch IBANDRONATE 2020-0 Yes [id number] 150mg TAKE 1 [facility] 150 mg 7-31 TABLET BY ity of tablet 00:00: MOUTH ONCE [place] 00 EVERY Medical MONTH. Branch IBANDRONATE 2020-0 Yes [id number] 150mg TAKE 1 [facility] 150 mg 7-31 TABLET BY ity of tablet 00:00: MOUTH ONCE [place] 00 EVERY Medical MONTH. Branch IBANDRONATE 2020-0 Yes [id number] 150mg TAKE 1 [facility] 150 mg 7-31 TABLET BY ity of tablet 00:00: MOUTH ONCE [place] 00 EVERY Medical MONTH. Branch IBANDRONATE 2020-0 Yes [id number] 150mg TAKE 1 [facility] 150 mg 7-31 TABLET BY ity of tablet 00:00: MOUTH ONCE [place] 00 EVERY Medical MONTH. Branch IBANDRONATE 2020-0 Yes [id number] 150mg TAKE 1 [facility] 150 mg 7-31 TABLET BY ity of tablet 00:00: MOUTH ONCE [place] 00 EVERY Medical MONTH. Branch IBANDRONATE 2020-0 Yes [id number] 150mg TAKE 1 [facility] 150 mg 7-31 TABLET BY ity of tablet 00:00: MOUTH ONCE [place] 00 EVERY Medical MONTH. Branch IBANDRONATE 2020-0 Yes [id number] 150mg TAKE 1 [facility] 150 mg 7-31 TABLET BY ity of tablet 00:00: MOUTH ONCE [place] 00 EVERY Medical MONTH. Branch IBANDRONATE 2020-0 Yes [id number] 150mg TAKE 1 [facility] 150 mg 7-31 TABLET BY ity of tablet 00:00: MOUTH ONCE [place] 00 EVERY Medical MONTH. Branch IBANDRONATE 2020-0 Yes [id number] 150mg TAKE 1 [facility] 150 mg 7-31 TABLET BY ity of tablet 00:00: MOUTH ONCE [place] 00 EVERY Medical MONTH. Branch IBANDRONATE 2020-0 Yes [id number] 150mg TAKE 1 [facility] 150 mg 7-31 TABLET BY ity of tablet 00:00: MOUTH ONCE [place] 00 EVERY Medical MONTH. Branch IBANDRONATE 2020-0 Yes [id number] 150mg TAKE 1 [facility] 150 mg 7-31 TABLET BY ity of tablet 00:00: MOUTH ONCE [place] 00 EVERY Medical MONTH. Branch IBANDRONATE 2020-0 Yes [id number] 150mg TAKE 1 [facility] 150 mg 7-31 TABLET BY ity of tablet 00:00: MOUTH ONCE [place] 00 EVERY Medical MONTH. Branch IBANDRONATE 2020-0 Yes [id number] 150mg TAKE 1 [facility] 150 mg 7-31 TABLET BY ity of tablet 00:00: MOUTH ONCE [place] 00 EVERY Medical MONTH. Branch IBANDRONATE 2020-0 Yes [id number] 150mg TAKE 1 [facility] 150 mg 7-31 TABLET BY ity of tablet 00:00: MOUTH ONCE [place] EVERY Medical MONTH. Branch IBANDRONATE 2020-0 Yes [id number] 150mg TAKE 1 [facility] 150 mg 7-31 TABLET BY ity of tablet 00:00: MOUTH ONCE [place] 00 EVERY Medical MONTH. Branch IBANDRONATE 2020-0 Yes [id number] 150mg TAKE 1 [facility] 150 mg 7-31 TABLET BY ity of tablet 00:00: MOUTH ONCE [place] 00 EVERY Medical MONTH. Branch IBANDRONATE 2020-0 Yes [id number] 150mg TAKE 1 [facility] 150 mg 7-31 TABLET BY ity of tablet 00:00: MOUTH ONCE [place] 00 EVERY Medical MONTH. Branch IBANDRONATE 2020-0 Yes [id number] 150mg TAKE 1 [facility] 150 mg 7-31 TABLET BY ity of tablet 00:00: MOUTH ONCE [place] 00 EVERY Medical MONTH. Branch IBANDRONATE 2020-0 Yes [id number] 150mg TAKE 1 [facility] 150 mg 7-31 TABLET BY ity of tablet 00:00: MOUTH ONCE [place] 00 EVERY Medical MONTH. Branch IBANDRONATE 2020-0 Yes [id number] 150mg TAKE 1 [facility] 150 mg 7-31 TABLET BY ity of tablet 00:00: MOUTH ONCE [place] 00 EVERY Medical MONTH. Branch IBANDRONATE 2020-0 Yes [id number] 150mg TAKE 1 [facility] 150 mg 7-31 TABLET BY ity of tablet 00:00: MOUTH ONCE [place] 00 EVERY Medical MONTH. Branch IBANDRONATE 2020-0 Yes [id number] 150mg TAKE 1 [facility] 150 mg 7-31 TABLET BY ity of tablet 00:00: MOUTH ONCE [place] 00 EVERY Medical MONTH. Branch IBANDRONATE 2020-0 Yes [id number] 150mg TAKE 1 [facility] 150 mg 7-31 TABLET BY it[facility] of tablet 00:00: MOUTH ONCE [place] 00 EVERY Medical MONTH. Branch IBANDRONATE 2020-0 Yes [id number] 150mg TAKE 1 [facility] 150 mg 7-31 TABLET BY it[facility] of tablet 00:00: MOUTH ONCE [place] 00 EVERY Medical MONTH. Branch IBANDRONATE 2020-0 Yes [id number] 150mg TAKE 1 [facility] 150 mg 7-31 TABLET BY it[facility] of tablet 00:00: MOUTH ONCE [place] 00 EVERY Medical MONTH. Branch IBANDRONATE 2020-0 Yes [id number] 150mg TAKE 1 [facility] 150 mg 7-31 TABLET BY ity of tablet 00:00: MOUTH ONCE [place] 00 EVERY Medical MONTH. Branch IBANDRONATE 2020-0 Yes [id number] 150mg TAKE 1 [facility] 150 mg 7-31 TABLET BY ity of tablet 00:00: MOUTH ONCE [place] 00 EVERY Medical MONTH. Branch IBANDRONATE 2020-0 Yes [id number] 150mg TAKE 1 [facility] 150 mg 7-31 TABLET BY ity of tablet 00:00: MOUTH ONCE [place] 00 EVERY Medical MONTH. Branch IBANDRONATE 2020-0 Yes [id number] 150mg TAKE 1 [facility] 150 mg 7-31 TABLET BY ity of tablet 00:00: MOUTH ONCE [place] 00 EVERY Medical MONTH. Branch IBANDRONATE 2020-0 Yes [id number] 150mg TAKE 1 [facility] 150 mg 7-31 TABLET BY ity of tablet 00:00: MOUTH ONCE [place] 00 EVERY Medical MONTH. Branch IBANDRONATE 2020-0 Yes [id number] 150mg TAKE 1 [facility] 150 mg 7-31 TABLET BY ity of tablet 00:00: MOUTH ONCE [place] 00 EVERY Medical MONTH. Branch IBANDRONATE 2020-0 Yes [id number] 150mg TAKE 1 [facility] 150 mg 7-31 TABLET BY it[facility] of tablet 00:00: MOUTH ONCE [place] 00 EVERY Medical MONTH. Branch IBANDRONATE 2020-0 Yes [id number] 150mg TAKE 1 [facility] 150 mg 7-31 TABLET BY ity of tablet 00:00: MOUTH ONCE [place] 00 EVERY Medical MONTH. Branch IBANDRONATE 2020-0 Yes [id number] 150mg TAKE 1 [facility] 150 mg 7-31 TABLET BY ity of tablet 00:00: MOUTH ONCE [place] 00 EVERY Medical MONTH. Branch IBANDRONATE 2020-0 Yes [id number] 150mg TAKE 1 [facility] 150 mg 7-31 TABLET BY ity of tablet 00:00: MOUTH ONCE [place] 00 EVERY Medical MONTH. Branch IBANDRONATE 2020-0 Yes [id number] 150mg TAKE 1 [facility] 150 mg 7-31 TABLET BY ity of tablet 00:00: MOUTH ONCE [place] 00 EVERY Medical MONTH. Branch IBANDRONATE 2020-0 Yes [id number] 150mg TAKE 1 [facility] 150 mg 7-31 TABLET BY ity of tablet 00:00: MOUTH ONCE [place] 00 EVERY Medical MONTH. Branch IBANDRONATE 2020-0 Yes [id number] 150mg TAKE 1 [facility] 150 mg 7-31 TABLET BY ity of tablet 00:00: MOUTH ONCE [place] 00 EVERY Medical MONTH. Branch IBANDRONATE 2020-0 Yes [id number] 150mg TAKE 1 [facility] 150 mg 7-31 TABLET BY ity of tablet 00:00: MOUTH ONCE [place] EVERY Medical MONTH. Branch IBANDRONATE 2020-0 Yes [id number] 150mg TAKE 1 [facility] 150 mg 7-31 TABLET BY ity of tablet 00:00: MOUTH ONCE [place] 00 EVERY Medical MONTH. Branch IBANDRONATE 2020-0 Yes [id number] 150mg TAKE 1 [facility] 150 mg 7-31 TABLET BY ity of tablet 00:00: MOUTH ONCE [place] 00 EVERY Medical MONTH. Branch IBANDRONATE 2020-0 Yes [id number] 150mg TAKE 1 [facility] 150 mg 7-31 TABLET BY ity of tablet 00:00: MOUTH ONCE [place] 00 EVERY Medical MONTH. Branch IBANDRONATE 2020-0 Yes [id number] 150mg TAKE 1 [facility] 150 mg 7-31 TABLET BY ity of tablet 00:00: MOUTH ONCE [place] 00 EVERY Medical MONTH. Branch IBANDRONATE 2020-0 Yes [id number] 150mg TAKE 1 [facility] 150 mg 7-31 TABLET BY ity of tablet 00:00: MOUTH ONCE [place] 00 EVERY Medical MONTH. Branch IBANDRONATE 2020-0 Yes [id number] 150mg TAKE 1 [facility] 150 mg 7-31 TABLET BY ity of tablet 00:00: MOUTH ONCE [place] 00 EVERY Medical MONTH. Branch IBANDRONATE 2020-0 Yes [id number] 150mg TAKE 1 [facility] 150 mg 7-31 TABLET BY ity of tablet 00:00: MOUTH ONCE [place] 00 EVERY Medical MONTH. Branch IBANDRONATE 2020-0 Yes [id number] 150mg TAKE 1 [facility] 150 mg 7-31 TABLET BY ity of tablet 00:00: MOUTH ONCE [place] 00 EVERY Medical MONTH. Branch IBANDRONATE 2020-0 Yes [id number] 150mg TAKE 1 [facility] 150 mg 7-31 TABLET BY ity of tablet 00:00: MOUTH ONCE [place] 00 EVERY Medical MONTH. Branch IBANDRONATE 2020-0 Yes [id number] 150mg TAKE 1 [facility] 150 mg 7-31 TABLET BY ity of tablet 00:00: MOUTH ONCE [place] 00 EVERY Medical MONTH. Branch IBANDRONATE 2020-0 Yes [id number] 150mg TAKE 1 [facility] 150 mg 7-31 TABLET BY ity of tablet 00:00: MOUTH ONCE [place] 00 EVERY Medical MONTH. Branch IBANDRONATE 2020-0 Yes [id number] 150mg TAKE 1 [facility] 150 mg 7-31 TABLET BY ity of tablet 00:00: MOUTH ONCE [place] 00 EVERY Medical MONTH. Branch IBANDRONATE 2020-0 Yes [id number] 150mg TAKE 1 [facility] 150 mg 7-31 TABLET BY ity of tablet 00:00: MOUTH ONCE [place] 00 EVERY Medical MONTH. Branch IBANDRONATE 2020-0 Yes [id number] 150mg TAKE 1 [facility] 150 mg 7-31 TABLET BY ity of tablet 00:00: MOUTH ONCE [place] 00 EVERY Medical MONTH. Branch IBANDRONATE 2020-0 Yes [id number] 150mg TAKE 1 [facility] 150 mg 7-31 TABLET BY ity of tablet 00:00: MOUTH ONCE [place] 00 EVERY Medical MONTH. Branch IBANDRONATE 2020-0 Yes [id number] 150mg TAKE 1 [facility] 150 mg 7-31 TABLET BY ity of tablet 00:00: MOUTH ONCE [place] 00 EVERY Medical MONTH. Branch IBANDRONATE 2020-0 Yes [id number] 150mg TAKE 1 [facility] 150 mg 7-31 TABLET BY ity of tablet 00:00: MOUTH ONCE [place] 00 EVERY Medical MONTH. Branch IBANDRONATE 2020-0 Yes [id number] 150mg TAKE 1 [facility] 150 mg 7-31 TABLET BY ity of tablet 00:00: MOUTH ONCE [place] 00 EVERY Medical MONTH. Branch IBANDRONATE 2020-0 Yes [id number] 150mg TAKE 1 [facility] 150 mg 7-31 TABLET BY ity of tablet 00:00: MOUTH ONCE [place] 00 EVERY Medical MONTH. Branch IBANDRONATE 2020-0 Yes [id number] 150mg TAKE 1 [facility] 150 mg 7-31 TABLET BY ity of tablet 00:00: MOUTH ONCE [place] 00 EVERY Medical MONTH. Branch IBANDRONATE 2020-0 Yes [id number] 150mg TAKE 1 [facility] 150 mg 7-31 TABLET BY ity of tablet 00:00: MOUTH ONCE [place] 00 EVERY Medical MONTH. Branch IBANDRONATE 2020-0 Yes [id number] 150mg TAKE 1 [facility] 150 mg 7-31 TABLET BY ity of tablet 00:00: MOUTH ONCE [place] 00 EVERY Medical MONTH. Branch IBANDRONATE 2020-0 Yes [id number] 150mg TAKE 1 [facility] 150 mg 7-31 TABLET BY ity of tablet 00:00: MOUTH ONCE [place] 00 EVERY Medical MONTH. Branch IBANDRONATE 2020-0 Yes [id number] 150mg TAKE 1 [facility] 150 mg 7-31 TABLET BY ity of tablet 00:00: MOUTH ONCE [place] 00 EVERY Medical MONTH. Branch IBANDRONATE 2020-0 Yes [id number] 150mg TAKE 1 [facility] 150 mg 7-31 TABLET BY ity of tablet 00:00: MOUTH ONCE [place] EVERY Medical MONTH. Branch IBANDRONATE 2020-0 Yes [id number] 150mg TAKE 1 [facility] 150 mg 7-31 TABLET BY ity of tablet 00:00: MOUTH ONCE [place] 00 EVERY Medical MONTH. Branch IBANDRONATE 2020-0 Yes [id number] 150mg TAKE 1 [facility] 150 mg 7-31 TABLET BY ity of tablet 00:00: MOUTH ONCE [place] 00 EVERY Medical MONTH. Branch IBANDRONATE 2020-0 Yes [id number] 150mg TAKE 1 [facility] 150 mg 7-31 TABLET BY ity of tablet 00:00: MOUTH ONCE [place] 00 EVERY Medical MONTH. Branch IBANDRONATE 2020-0 Yes [id number] 150mg TAKE 1 [facility] 150 mg 7-31 TABLET BY ity of tablet 00:00: MOUTH ONCE [place] 00 EVERY Medical MONTH. Branch IBANDRONATE 2020-0 Yes [id number] 150mg TAKE 1 [facility] 150 mg 7-31 TABLET BY ity of tablet 00:00: MOUTH ONCE [place] 00 EVERY Medical MONTH. Branch IBANDRONATE 2020-0 Yes [id number] 150mg TAKE 1 [facility] 150 mg 7-31 TABLET BY ity of tablet 00:00: MOUTH ONCE [place] 00 EVERY Medical MONTH. Branch IBANDRONATE 2020-0 Yes [id number] 150mg TAKE 1 [facility] 150 mg 7-31 TABLET BY ity of tablet 00:00: MOUTH ONCE [place] 00 EVERY Medical MONTH. Branch IBANDRONATE 2020-0 Yes [id number] 150mg TAKE 1 [facility] 150 mg 7-31 TABLET BY ity of tablet 00:00: MOUTH ONCE [place] 00 EVERY Medical MONTH. Branch IBANDRONATE 2020-0 Yes [id number] 150mg TAKE 1 [facility] 150 mg 7-31 TABLET BY ity of tablet 00:00: MOUTH ONCE [place] 00 EVERY Medical MONTH. Branch IBANDRONATE 2020-0 Yes [id number] 150mg TAKE 1 [facility] 150 mg 7-31 TABLET BY ity of tablet 00:00: MOUTH ONCE [place] 00 EVERY Medical MONTH. Branch IBANDRONATE 2020-0 Yes [id number] 150mg TAKE 1 [facility] 150 mg 7-31 TABLET BY ity of tablet 00:00: MOUTH ONCE [place] 00 EVERY Medical MONTH. Branch IBANDRONATE 2020-0 Yes [id number] 150mg TAKE 1 [facility] 150 mg 7-31 TABLET BY ity of tablet 00:00: MOUTH ONCE [place] 00 EVERY Medical MONTH. Branch IBANDRONATE 2020-0 Yes [id number] 150mg TAKE 1 [facility] 150 mg 7-31 TABLET BY ity of tablet 00:00: MOUTH ONCE [place] 00 EVERY Medical MONTH. Branch IBANDRONATE 2020-0 Yes [id number] 150mg TAKE 1 [facility] 150 mg 7-31 TABLET BY ity of tablet 00:00: MOUTH ONCE [place] 00 EVERY Medical MONTH. Branch IBANDRONATE 2020-0 Yes [id number] 150mg TAKE 1 [facility] 150 mg 7-31 TABLET BY ity of tablet 00:00: MOUTH ONCE [place] 00 EVERY Medical MONTH. Branch IBANDRONATE 2020-0 Yes [id number] 150mg TAKE 1 [facility] 150 mg 7-31 TABLET BY ity of tablet 00:00: MOUTH ONCE [place] 00 EVERY Medical MONTH. Branch IBANDRONATE 2020-0 Yes [id number] 150mg TAKE 1 [facility] 150 mg 7-31 TABLET BY ity of tablet 00:00: MOUTH ONCE [place] 00 EVERY Medical MONTH. Branch IBANDRONATE 2020-0 Yes [id number] 150mg TAKE 1 [facility] 150 mg 7-31 TABLET BY ity of tablet 00:00: MOUTH ONCE [place] 00 EVERY Medical MONTH. Branch IBANDRONATE 2020-0 Yes [id number] 150mg TAKE 1 [facility] 150 mg 7-31 TABLET BY ity of tablet 00:00: MOUTH ONCE [place] 00 EVERY Medical MONTH. Branch IBANDRONATE 2020-0 Yes [id number] 150mg TAKE 1 [facility] 150 mg 7-31 TABLET BY ity of tablet 00:00: MOUTH ONCE [place] 00 EVERY Medical MONTH. Branch IBANDRONATE 2020-0 Yes [id number] 150mg TAKE 1 [facility] 150 mg 7-31 TABLET BY ity of tablet 00:00: MOUTH ONCE [place] 00 EVERY Medical MONTH. Branch IBANDRONATE 2020-0 Yes [id number] 150mg TAKE 1 [facility] 150 mg 7-31 TABLET BY ity of tablet 00:00: MOUTH ONCE [place] EVERY Medical MONTH. Branch IBANDRONATE 2020-0 Yes [id number] 150mg TAKE 1 [facility] 150 mg 7-31 TABLET BY ity of tablet 00:00: MOUTH ONCE [place] 00 EVERY Medical MONTH. Branch IBANDRONATE 2020-0 Yes [id number] 150mg TAKE 1 [facility] 150 mg 7-31 TABLET BY ity of tablet 00:00: MOUTH ONCE [place] 00 EVERY Medical MONTH. Branch IBANDRONATE 2020-0 Yes [id number] 150mg TAKE 1 [facility] 150 mg 7-31 TABLET BY ity of tablet 00:00: MOUTH ONCE 00 EVERY Medical MONTH. Branch ESOMEPRAZOL 2019-0 Yes [id number] TAKE 1 [facility] E 40 mg 7-28 CAPSULE BY ity of capsule 00:00: MOUTH [place] 00 DAILY WITH Medical BREAKFAST. Branch BRAND MEDICALLY NECESSARY. ESOMEPRAZOL 2020-0 Yes [id number] TAKE 1 [facility] E 40 mg 7-28 CAPSULE BY ity of capsule 00:00: MOUTH [place] 00 DAILY WITH Medical BREAKFAST. Branch BRAND MEDICALLY NECESSARY. ESOMEPRAZOL 2019-0 2020- No [id number] TAKE 1 [facility] E 40 mg 7-28 08-24 CAPSULE BY ity o f capsule 00:00: 00:00 MOUTH [place] 00 :00 DAILY WITH Medical BREAKFAST. Branch BRAND MEDICALLY NECESSARY. ESOMEPRAZOL 2020-0 2020- No [id number] TAKE 1 [facility] E 40 mg 7-28 08-24 CAPSULE BY ity o f capsule 00:00: 00:00 MOUTH [place] 00 :00 DAILY WITH Medical BREAKFAST. Branch BRAND MEDICALLY NECESSARY. ESOMEPRAZOL 2019-0 2020- No [id number] TAKE 1 [facility] E 40 mg 7-28 08-24 CAPSULE BY ity o f capsule 00:00: 00:00 MOUTH [place] 00 :00 DAILY WITH Medical BREAKFAST. Branch BRAND MEDICALLY NECESSARY. TRIAMTERENE 2020-0 Yes [id number] TAKE 2 [facility] -HYDROCHLOR 6-03 TABLETS BY it y of OTHIAZID 00:00: MOUTH [place] 37.5-25 mg 00 DAILY. Medical tablet Branch TRIAMTERENE 2020-0 Yes [id number] TAKE 2 [facility] -HYDROCHLOR 6-03 TABLETS BY it y of OTHIAZID 00:00: MOUTH [place] 37.5-25 mg 00 DAILY. Medical tablet Branch TRIAMTERENE 2020-0 Yes [id number] TAKE 2 [facility] -HYDROCHLOR 6-03 TABLETS BY it y of OTHIAZID 00:00: MOUTH [place] 37.5-25 mg 00 DAILY. Medical tablet Branch TRIAMTERENE 2020-0 Yes [id number] TAKE 2 [facility] -HYDROCHLOR 6-03 TABLETS BY it y of OTHIAZID 00:00: MOUTH [place] 37.5-25 mg 00 DAILY. Medical tablet Branch TRIAMTERENE 2020-0 Yes [id number] TAKE 2 [facility] -HYDROCHLOR 6-03 TABLETS BY it y of OTHIAZID 00:00: MOUTH [place] 37.5-25 mg 00 DAILY. Medical tablet Branch TRIAMTERENE 2020-0 Yes [id number] TAKE 2 [facility] -HYDROCHLOR 6-03 TABLETS BY it y of OTHIAZID 00:00: MOUTH [place] 37.5-25 mg 00 DAILY. Medical tablet Branch TRIAMTERENE 2020-0 Yes [id number] TAKE 2 [facility] -HYDROCHLOR 6-03 TABLETS BY it y of OTHIAZID 00:00: MOUTH [place] 37.5-25 mg 00 DAILY. Medical tablet Branch TRIAMTERENE 2020-0 Yes [id number] TAKE 2 [facility] -HYDROCHLOR 6-03 TABLETS BY it y of OTHIAZID 00:00: MOUTH [place] 37.5-25 mg 00 DAILY. Medical tablet Branch TRIAMTERENE 2020-0 Yes [id number] TAKE 2 [facility] -HYDROCHLOR 6-03 TABLETS BY it y of OTHIAZID 00:00: MOUTH [place] 37.5-25 mg 00 DAILY. Medical tablet Branch TRIAMTERENE 2020-0 Yes [id number] TAKE 2 [facility] -HYDROCHLOR 6-03 TABLETS BY it y of OTHIAZID 00:00: MOUTH [place] 37.5-25 mg 00 DAILY. Medical tablet Branch TRIAMTERENE 2020-0 2020- No [id number] TAKE 2 [facility] -HYDROCHLOR 6-03 09-08 TABLETS BY i ty of OTHIAZID 00:00: 00:00 MOUTH [place] 37.5-25 mg 00 :00 DAILY. Medical tablet Branch TRIAMTERENE 2020-0 2020- No [id number] TAKE 2 [facility] -HYDROCHLOR 6-03 09-08 TABLETS BY i ty of OTHIAZID 00:00: 00:00 MOUTH [place] 37.5-25 mg 00 :00 DAILY. Medical tablet Branch TIZANIDINE 2020-0 Yes [id number] 4mg TAKE 1-2 [facility] 4 mg tablet 5-07 TABLETS BY it y of 00:00: MOUTH [place] 00 EVERY 8 Medical (EIGHT) Branch HOURS NEEDED (MUSCLE PAIN OR SPASM). TIZANIDINE 2020-0 Yes [id number] 4mg TAKE 1-2 [facility] 4 mg tablet 5-07 TABLETS BY it y of 00:00: MOUTH [place] 00 EVERY 8 Medical (EIGHT) Branch HOURS NEEDED (MUSCLE PAIN OR SPASM). TIZANIDINE 2020-0 Yes [id number] 4mg TAKE 1-2 [facility] 4 mg tablet 5-07 TABLETS BY it y of 00:00: MOUTH [place] 00 EVERY 8 Medical (EIGHT) Branch HOURS NEEDED (MUSCLE PAIN OR SPASM). TIZANIDINE 2020-0 Yes [id number] 4mg TAKE 1-2 [facility] 4 mg tablet 5-07 TABLETS BY it y of 00:00: MOUTH [place] 00 EVERY 8 Medical (EIGHT) Branch HOURS NEEDED (MUSCLE PAIN OR SPASM). TIZANIDINE 2020-0 Yes [id number] 4mg TAKE 1-2 [facility] 4 mg tablet 5-07 TABLETS BY it y of 00:00: MOUTH [place] 00 EVERY 8 Medical (EIGHT) Branch HOURS NEEDED (MUSCLE PAIN OR SPASM). TIZANIDINE 2020-0 Yes [id number] 4mg TAKE 1-2 [facility] 4 mg tablet 5-07 TABLETS BY it y of 00:00: MOUTH [place] 00 EVERY 8 Medical (EIGHT) Branch HOURS NEEDED (MUSCLE PAIN OR SPASM). TIZANIDINE 2020-0 Yes [id number] 4mg TAKE 1-2 [facility] 4 mg tablet 5-07 TABLETS BY it y of 00:00: MOUTH [place] 00 EVERY 8 Medical (EIGHT) Branch HOURS NEEDED (MUSCLE PAIN OR SPASM). TIZANIDINE 2020-0 Yes [id number] 4mg TAKE 1-2 [facility] 4 mg tablet 5-07 TABLETS BY it y of 00:00: MOUTH [place] 00 EVERY 8 Medical (EIGHT) Branch HOURS NEEDED (MUSCLE PAIN OR SPASM). TIZANIDINE 2020-0 Yes [id number] 4mg TAKE 1-2 [facility] 4 mg tablet 5-07 TABLETS BY it y of 00:00: MOUTH [place] 00 EVERY 8 Medical (EIGHT) Branch HOURS NEEDED (MUSCLE PAIN OR SPASM). TIZANIDINE 2020-0 Yes [id number] 4mg TAKE 1-2 [facility] 4 mg tablet 5-07 TABLETS BY it y of 00:00: MOUTH [place] 00 EVERY 8 Medical (EIGHT) Branch HOURS NEEDED (MUSCLE PAIN OR SPASM). TIZANIDINE 2020-0 Yes [id number] 4mg TAKE 1-2 [facility] 4 mg tablet 5-07 TABLETS BY it y of 00:00: MOUTH [place] 00 EVERY 8 Medical (EIGHT) Branch HOURS NEEDED (MUSCLE PAIN OR SPASM). TIZANIDINE 2020-0 Yes [id number] 4mg TAKE 1-2 [facility] 4 mg tablet 5-07 TABLETS BY it y of 00:00: MOUTH [place] 00 EVERY 8 Medical (EIGHT) Branch HOURS NEEDED (MUSCLE PAIN OR SPASM). TIZANIDINE 2020-0 Yes [id number] 4mg TAKE 1-2 [facility] 4 mg tablet 5-07 TABLETS BY it y of 00:00: MOUTH [place] 00 EVERY 8 Medical (EIGHT) Branch HOURS NEEDED (MUSCLE PAIN OR SPASM). TIZANIDINE 2020-0 Yes [id number] 4mg TAKE 1-2 [facility] 4 mg tablet 5-07 TABLETS BY it y of 00:00: MOUTH [place] 00 EVERY 8 Medical (EIGHT) Branch HOURS NEEDED (MUSCLE PAIN OR SPASM). TIZANIDINE 2020-0 Yes [id number] 4mg TAKE 1-2 [facility] 4 mg tablet 5-07 TABLETS BY it y of 00:00: MOUTH [place] 00 EVERY 8 Medical (EIGHT) Branch HOURS NEEDED (MUSCLE PAIN OR SPASM). TIZANIDINE 2020-0 Yes [id number] 4mg TAKE 1-2 [facility] 4 mg tablet 5-07 TABLETS BY it y of 00:00: MOUTH [place] 00 EVERY 8 Medical (EIGHT) Branch HOURS NEEDED (MUSCLE PAIN OR SPASM). TIZANIDINE 2020-0 Yes [id number] 4mg TAKE 1-2 [facility] 4 mg tablet 5-07 TABLETS BY it y of 00:00: MOUTH [place] 00 EVERY 8 Medical (EIGHT) Branch HOURS NEEDED (MUSCLE PAIN OR SPASM). TIZANIDINE 2020-0 Yes [id number] 4mg TAKE 1-2 [facility] 4 mg tablet 5-07 TABLETS BY it y of 00:00: MOUTH [place] 00 EVERY 8 Medical (EIGHT) Branch HOURS NEEDED (MUSCLE PAIN OR SPASM). TIZANIDINE 2020-0 Yes [id number] 4mg TAKE 1-2 [facility] 4 mg tablet 5-07 TABLETS BY it y of 00:00: MOUTH [place] 00 EVERY 8 Medical (EIGHT) Branch HOURS NEEDED (MUSCLE PAIN OR SPASM). TIZANIDINE 2020-0 Yes [id number] 4mg TAKE 1-2 [facility] 4 mg tablet 5-07 TABLETS BY it y of 00:00: MOUTH [place] 00 EVERY 8 Medical (EIGHT) Branch HOURS NEEDED (MUSCLE PAIN OR SPASM). TIZANIDINE 2020-0 Yes [id number] 4mg TAKE 1-2 [facility] 4 mg tablet 5-07 TABLETS BY it y of 00:00: MOUTH [place] 00 EVERY 8 Medical (EIGHT) Branch HOURS NEEDED (MUSCLE PAIN OR SPASM). TIZANIDINE 2020-0 Yes [id number] 4mg TAKE 1-2 [facility] 4 mg tablet 5-07 TABLETS BY it y of 00:00: MOUTH [place] 00 EVERY 8 Medical (EIGHT) Branch HOURS NEEDED (MUSCLE PAIN OR SPASM). TIZANIDINE 2020-0 Yes [id number] 4mg TAKE 1-2 [facility] 4 mg tablet 5-07 TABLETS BY it y of 00:00: MOUTH [place] 00 EVERY 8 Medical (EIGHT) Branch HOURS NEEDED (MUSCLE PAIN OR SPASM). TIZANIDINE 2020-0 Yes [id number] 4mg TAKE 1-2 [facility] 4 mg tablet 5-07 TABLETS BY it y of 00:00: MOUTH [place] 00 EVERY 8 Medical (EIGHT) Branch HOURS NEEDED (MUSCLE PAIN OR SPASM). TIZANIDINE 2020-0 Yes [id number] 4mg TAKE 1-2 [facility] 4 mg tablet 5-07 TABLETS BY it y of 00:00: MOUTH [place] 00 EVERY 8 Medical (EIGHT) Branch HOURS NEEDED (MUSCLE PAIN OR SPASM). TIZANIDINE 2020-0 Yes [id number] 4mg TAKE 1-2 [facility] 4 mg tablet 5-07 TABLETS BY it y of 00:00: MOUTH [place] 00 EVERY 8 Medical (EIGHT) Branch HOURS NEEDED (MUSCLE PAIN OR SPASM). TIZANIDINE 2020-0 Yes [id number] 4mg TAKE 1-2 [facility] 4 mg tablet 5-07 TABLETS BY it y of 00:00: MOUTH [place] 00 EVERY 8 Medical (EIGHT) Branch HOURS NEEDED (MUSCLE PAIN OR SPASM). TIZANIDINE 2020-0 Yes [id number] 4mg TAKE 1-2 [facility] 4 mg tablet 5-07 TABLETS BY it y of 00:00: MOUTH [place] 00 EVERY 8 Medical (EIGHT) Branch HOURS NEEDED (MUSCLE PAIN OR SPASM). TIZANIDINE 2020-0 Yes [id number] 4mg TAKE 1-2 [facility] 4 mg tablet 5-07 TABLETS BY it y of 00:00: MOUTH [place] 00 EVERY 8 Medical (EIGHT) Branch HOURS NEEDED (MUSCLE PAIN OR SPASM). TIZANIDINE 2020-0 Yes [id number] 4mg TAKE 1-2 [facility] 4 mg tablet 5-07 TABLETS BY it y of 00:00: MOUTH [place] 00 EVERY 8 Medical (EIGHT) Branch HOURS NEEDED (MUSCLE PAIN OR SPASM). TIZANIDINE 2020-0 Yes [id number] 4mg TAKE 1-2 [facility] 4 mg tablet 5-07 TABLETS BY it y of 00:00: MOUTH [place] 00 EVERY 8 Medical (EIGHT) Branch HOURS NEEDED (MUSCLE PAIN OR SPASM). TIZANIDINE 2020-0 Yes [id number] 4mg TAKE 1-2 [facility] 4 mg tablet 5-07 TABLETS BY it y of 00:00: MOUTH [place] 00 EVERY 8 Medical (EIGHT) Branch HOURS NEEDED (MUSCLE PAIN OR SPASM). TIZANIDINE 2020-0 Yes [id number] 4mg TAKE 1-2 [facility] 4 mg tablet 5-07 TABLETS BY it y of 00:00: MOUTH [place] 00 EVERY 8 Medical (EIGHT) Branch HOURS NEEDED (MUSCLE PAIN OR SPASM). TIZANIDINE 2020-0 Yes [id number] 4mg TAKE 1-2 [facility] 4 mg tablet 5-07 TABLETS BY it y of 00:00: MOUTH [place] 00 EVERY 8 Medical (EIGHT) Branch HOURS NEEDED (MUSCLE PAIN OR SPASM). TIZANIDINE 2020-0 Yes [id number] 4mg TAKE 1-2 [facility] 4 mg tablet 5-07 TABLETS BY it y of 00:00: MOUTH [place] 00 EVERY 8 Medical (EIGHT) Branch HOURS NEEDED (MUSCLE PAIN OR SPASM). TIZANIDINE 2020-0 Yes [id number] 4mg TAKE 1-2 [facility] 4 mg tablet 5-07 TABLETS BY it y of 00:00: MOUTH [place] 00 EVERY 8 Medical (EIGHT) Branch HOURS NEEDED (MUSCLE PAIN OR SPASM). TIZANIDINE 2020-0 Yes [id number] 4mg TAKE 1-2 [facility] 4 mg tablet 5-07 TABLETS BY it y of 00:00: MOUTH [place] 00 EVERY 8 Medical (EIGHT) Branch HOURS NEEDED (MUSCLE PAIN OR SPASM). TIZANIDINE 2020-0 Yes [id number] 4mg TAKE 1-2 [facility] 4 mg tablet 5-07 TABLETS BY it y of 00:00: MOUTH [place] 00 EVERY 8 Medical (EIGHT) Branch HOURS NEEDED (MUSCLE PAIN OR SPASM). TIZANIDINE 2020-0 Yes [id number] 4mg TAKE 1-2 [facility] 4 mg tablet 5-07 TABLETS BY it y of 00:00: MOUTH [place] 00 EVERY 8 Medical (EIGHT) Branch HOURS NEEDED (MUSCLE PAIN OR SPASM). TIZANIDINE 2020-0 Yes [id number] 4mg TAKE 1-2 [facility] 4 mg tablet 5-07 TABLETS BY it y of 00:00: MOUTH [place] 00 EVERY 8 Medical (EIGHT) Branch HOURS NEEDED (MUSCLE PAIN OR SPASM). TIZANIDINE 2020-0 Yes [id number] 4mg TAKE 1-2 [facility] 4 mg tablet 5-07 TABLETS BY it y of 00:00: MOUTH [place] 00 EVERY 8 Medical (EIGHT) Branch HOURS NEEDED (MUSCLE PAIN OR SPASM). TIZANIDINE 2020-0 Yes [id number] 4mg TAKE 1-2 [facility] 4 mg tablet 5-07 TABLETS BY it y of 00:00: MOUTH [place] 00 EVERY 8 Medical (EIGHT) Branch HOURS NEEDED (MUSCLE PAIN OR SPASM). TIZANIDINE 2020-0 Yes [id number] 4mg TAKE 1-2 [facility] 4 mg tablet 5-07 TABLETS BY it y of 00:00: MOUTH [place] 00 EVERY 8 Medical (EIGHT) Branch HOURS NEEDED (MUSCLE PAIN OR SPASM). TIZANIDINE 2020-0 Yes [id number] 4mg TAKE 1-2 [facility] 4 mg tablet 5-07 TABLETS BY it y of 00:00: MOUTH [place] 00 EVERY 8 Medical (EIGHT) Branch HOURS NEEDED (MUSCLE PAIN OR SPASM). TIZANIDINE 2020-0 Yes [id number] 4mg TAKE 1-2 [facility] 4 mg tablet 5-07 TABLETS BY it y of 00:00: MOUTH [place] 00 EVERY 8 Medical (EIGHT) Branch HOURS NEEDED (MUSCLE PAIN OR SPASM). TIZANIDINE 2020-0 Yes [id number] 4mg TAKE 1-2 [facility] 4 mg tablet 5-07 TABLETS BY it y of 00:00: MOUTH [place] 00 EVERY 8 Medical (EIGHT) Branch HOURS NEEDED (MUSCLE PAIN OR SPASM). TIZANIDINE 2020-0 Yes [id number] 4mg TAKE 1-2 [facility] 4 mg tablet 5-07 TABLETS BY it y of 00:00: MOUTH [place] 00 EVERY 8 Medical (EIGHT) Branch HOURS NEEDED (MUSCLE PAIN OR SPASM). TIZANIDINE 2020-0 2020- No [id number] 4mg TAKE 1-2 [facility] 4 mg tablet 01-21- TABLETS BY i ty of 00:00: 00:00 MOUTH [place] 00 :00 EVERY 8 Medical (EIGHT) Branch HOURS NEEDED (MUSCLE PAIN OR SPASM). TIZANIDINE 2019-0 2020- No [id number] 4mg TAKE 1-2 [facility] 4 mg tablet 01-21- TABLETS BY i ty of 00:00: 00:00 MOUTH [place] 00 :00 EVERY 8 Medical (EIGHT) Branch HOURS NEEDED (MUSCLE PAIN OR SPASM). levothyroxi 2020-0 Yes [id number] 50ug Take 1 [facility] ne 50 mcg 4-20 tablet by ity o f tablet 00:00: mouth [place] 00 every Medical morning. Branch levothyroxi 2020-0 Yes [id number] 50ug Take 1 [facility] 50 mcg 4-20 tablet by ity o f tablet 00:00: mouth [place] 00 every Medical morning. [place] levothyroxi 2020-0 Yes [id number] 50ug Take 1 [facility] ne 50 mcg 4-20 tablet by ity o f tablet 00:00: mouth [place] 00 every Medical morning. [place] levothyroxi 2020-0 Yes [id number] 50ug Take 1 [facility] 50 mcg 4-20 tablet by ity o f tablet 00:00: mouth [place] 00 every Medical morning. [place] levothyroxi 2020-0 Yes [id number] 50ug Take 1 [facility] 50 mcg 4-20 tablet by ity o f tablet 00:00: mouth [place] 00 every Medical morning. [place] levothyroxi 2020-0 Yes [id number] 50ug Take 1 [facility] 50 mcg 4-20 tablet by ity o f tablet 00:00: mouth [place] 00 every Medical morning. [place] levothyroxi 2020-0 Yes [id number] 50ug Take 1 [facility] 50 mcg 4-20 tablet by ity o f tablet 00:00: mouth [place] 00 every Medical morning. [place] levothyroxi 2020-0 Yes [id number] 50ug Take 1 [facility] 50 mcg 4-20 tablet by ity o f tablet 00:00: mouth [place] 00 every Medical morning. [place] levothyroxi 2020-0 Yes [id number] 50ug Take 1 [facility] 50 mcg 4-20 tablet by ity o f tablet 00:00: mouth [place] 00 every Medical morning. [place] levothyroxi 2020-0 Yes [id number] 50ug Take 1 [facility] 50 mcg 4-20 tablet by ity o f tablet 00:00: mouth [place] 00 every Medical morning. Branch levothyroxi 2020-0 Yes [id number] 50ug Take 1 [facility] 50 mcg 4-20 tablet by ity o f tablet 00:00: mouth [place] 00 every Medical morning. Branch levothyroxi 2020-0 Yes [id number] 50ug Take 1 [facility] 50 mcg 4-20 tablet by ity o f tablet 00:00: mouth [place] 00 every Medical morning. Branch levothyroxi 2020-0 Yes [id number] 50ug Take 1 [facility] 50 mcg 4-20 tablet by ity o f tablet 00:00: mouth [place] 00 every Medical morning. Branch levothyroxi 2020-0 Yes [id number] 50ug Take 1 [facility] 50 mcg 4-20 tablet by ity o f tablet 00:00: mouth [place] 00 every Medical morning. Branch levothyroxi 2020-0 Yes [id number] 50ug Take 1 [facility] 50 mcg 4-20 tablet by ity o f tablet 00:00: mouth [place] 00 every Medical morning. Branch levothyroxi 2020-0 Yes [id number] 50ug Take 1 [facility] 50 mcg 4-20 tablet by ity o f tablet 00:00: mouth [place] 00 every Medical morning. Branch levothyroxi 2020-0 Yes [id number] 50ug Take 1 [facility] 50 mcg 4-20 tablet by ity o f tablet 00:00: mouth [place] 00 every Medical morning. Branch levothyroxi 2020-0 Yes [id number] 50ug Take 1 [facility] 50 mcg 4-20 tablet by ity o f tablet 00:00: mouth [place] 00 every Medical morning. Branch levothyroxi 2020-0 Yes [id number] 50ug Take 1 [facility] 50 mcg 4-20 tablet by ity o f tablet 00:00: mouth [place] 00 every Medical morning. Branch levothyroxi 2020-0 Yes [id number] 50ug Take 1 [facility] 50 mcg 4-20 tablet by ity o f tablet 00:00: mouth [place] 00 every Medical morning. Branch levothyroxi 2020-0 Yes [id number] 50ug Take 1 [facility] 50 mcg 4-20 tablet by ity o f tablet 00:00: mouth [place] 00 every Medical morning. Branch levothyroxi 2020-0 Yes [id number] 50ug Take 1 [facility] ne 50 mcg 4-20 tablet by ity o f tablet 00:00: mouth [place] 00 every Medical morning. Branch levothyroxi 2020-0 Yes [id number] 50ug Take 1 [facility] 50 mcg 4-20 tablet by ity o f tablet 00:00: mouth [place] 00 every Medical morning. Branch levothyroxi 2020-0 Yes [id number] 50ug Take 1 [facility] 50 mcg 4-20 tablet by ity o f tablet 00:00: mouth [place] 00 every Medical morning. Branch levothyroxi 2020-0 Yes [id number] 50ug Take 1 [facility] 50 mcg 4-20 tablet by ity o f tablet 00:00: mouth [place] 00 every Medical morning. Branch levothyroxi 2020-0 Yes [id number] 50ug Take 1 [facility] 50 mcg 4-20 tablet by ity o f tablet 00:00: mouth [place] 00 every Medical morning. Branch levothyroxi 2020-0 Yes [id number] 50ug Take 1 [facility] ne 50 mcg 4-20 tablet by ity o f tablet 00:00: mouth [place] 00 every Medical morning. Branch levothyroxi 2020-0 Yes [id number] 50ug Take 1 [facility] ne 50 mcg 4-20 tablet by ity o f tablet 00:00: mouth [place] 00 every Medical morning. Branch levothyroxi 2020-0 Yes [id number] 50ug Take 1 [facility] ne 50 mcg 4-20 tablet by ity o f tablet 00:00: mouth [place] 00 every Medical morning. Branch levothyroxi 2020-0 Yes [id number] 50ug Take 1 [facility] ne 50 mcg 4-20 tablet by ity o f tablet 00:00: mouth [place] 00 every Medical morning. Branch levothyroxi 2020-0 Yes [id number] 50ug Take 1 [facility] ne 50 mcg 4-20 tablet by ity o f tablet 00:00: mouth [place] 00 every Medical morning. Branch levothyroxi 2020-0 Yes [id number] 50ug Take 1 [facility] ne 50 mcg 4-20 tablet by ity o f tablet 00:00: mouth [place] 00 every Medical morning. Branch levothyroxi 2020-0 Yes [id number] 50ug Take 1 [facility] ne 50 mcg 4-20 tablet by ity o f tablet 00:00: mouth [place] 00 every Medical morning. Branch levothyroxi 2020-0 Yes [id number] 50ug Take 1 [facility] ne 50 mcg 4-20 tablet by ity o f tablet 00:00: mouth [place] 00 every Medical morning. Branch levothyroxi 2020-0 Yes [id number] 50ug Take 1 [facility] ne 50 mcg 4-20 tablet by ity o f tablet 00:00: mouth [place] 00 every Medical morning. Branch levothyroxi 2020-0 Yes [id number] 50ug Take 1 [facility] ne 50 mcg 4-20 tablet by ity o f tablet 00:00: mouth [place] 00 every Medical morning. Branch levothyroxi 2020-0 Yes [id number] 50ug Take 1 [facility] ne 50 mcg 4-20 tablet by ity o f tablet 00:00: mouth [place] 00 every Medical morning. Branch levothyroxi 2020-0 Yes [id number] 50ug Take 1 [facility] ne 50 mcg 4-20 tablet by ity o f tablet 00:00: mouth [place] 00 every Medical morning. Branch levothyroxi 2020-0 Yes [id number] 50ug Take 1 [facility] ne 50 mcg 4-20 tablet by ity o f tablet 00:00: mouth [place] 00 every Medical morning. Branch levothyroxi 2020-0 Yes [id number] 50ug Take 1 [facility] ne 50 mcg 4-20 tablet by ity o f tablet 00:00: mouth [place] 00 every Medical morning. Branch levothyroxi 2020-0 Yes [id number] 50ug Take 1 [facility] ne 50 mcg 4-20 tablet by ity o f tablet 00:00: mouth [place] 00 every Medical morning. Branch levothyroxi 2020-0 Yes [id number] 50ug Take 1 [facility] ne 50 mcg 4-20 tablet by ity o f tablet 00:00: mouth [place] 00 every Medical morning. Branch levothyroxi 2020-0 2020- No [id number] 50ug Take 1 [facility] ne 50 mcg 4-20 10-23 tablet by ity of tablet 00:00: 00:00 mouth [place] 00 :00 every Medical morning. Branch rivaroxaban 2020-0 Yes [id number] 20mg Take 1 [facility] ers (XARELTO) 4-14 tablet by ity o f 20 mg 00:00: mouth [place] tablet 00 daily. Medical STOP [place] PERERA. Indication s: a clot in the lung [...] clot in the lung TRAZODONE 2020-0 Yes [id number] 100mg TAKE 1 [facility] 100 mg 4-06 TABLET BY ity of tablet 00:00: MOUTH AT [place] 00 BEDTIME. Medical FOR Branch INSOMNIA. TRAZODONE 2020-0 Yes [id number] 100mg TAKE 1 [facility] 100 mg 4-06 TABLET BY ity of tablet 00:00: MOUTH AT [place] 00 BEDTIME. Medical FOR Branch INSOMNIA. TRAZODONE 2020-0 Yes [id number] 100mg TAKE 1 [facility] 100 mg 4-06 TABLET BY ity of tablet 00:00: MOUTH AT [place] 00 BEDTIME. Medical FOR Branch INSOMNIA. TRAZODONE 2020-0 Yes [id number] 100mg TAKE 1 [facility] 100 mg 4-06 TABLET BY ity of tablet 00:00: MOUTH AT [place] 00 BEDTIME. Medical FOR Branch INSOMNIA. TRAZODONE 2020-0 Yes [id number] 100mg TAKE 1 [facility] 100 mg 4-06 TABLET BY ity of tablet 00:00: MOUTH AT [place] 00 BEDTIME. Medical FOR Branch INSOMNIA. TRAZODONE 2020-0 Yes [id number] 100mg TAKE 1 [facility] 100 mg 4-06 TABLET BY ity of tablet 00:00: MOUTH AT [place] 00 BEDTIME. Medical FOR Branch INSOMNIA. TRAZODONE 2020-0 Yes [id number] 100mg TAKE 1 [facility] 100 mg 4-06 TABLET BY ity of tablet 00:00: MOUTH AT [place] [address] BEDTIME. Medical FOR Branch INSOMNIA. TRAZODONE 2020-0 Yes [id number] 100mg TAKE 1 [facility] 100 mg 4-06 TABLET BY ity of tablet 00:00: MOUTH AT [place] [address] BEDTIME. Medical FOR Branch INSOMNIA. TRAZODONE 2020-0 Yes [id number] 100mg TAKE 1 [facility] 100 mg 4-06 TABLET BY ity of tablet 00:00: MOUTH AT [place] [address] BEDTIME. Medical FOR Branch INSOMNIA. TRAZODONE 2020-0 Yes [id number] 100mg TAKE 1 [facility] 100 mg 4-06 TABLET BY ity of tablet 00:00: MOUTH AT [place] [address] BEDTIME. Medical FOR Branch INSOMNIA. TRAZODONE 2020-0 Yes [id number] 100mg TAKE 1 [facility] 100 mg 4-06 TABLET BY ity of tablet 00:00: MOUTH AT [place] [address] BEDTIME. Medical FOR Branch INSOMNIA. TRAZODONE 2020-0 Yes [id number] 100mg TAKE 1 [facility] 100 mg 4-06 TABLET BY ity of tablet 00:00: MOUTH AT [place] [address] BEDTIME. Medical FOR Branch INSOMNIA. TRAZODONE 2020-0 Yes [id number] 100mg TAKE 1 [facility] 100 mg 4-06 TABLET BY ity of tablet 00:00: MOUTH AT [place] [address] BEDTIME. Medical FOR Branch INSOMNIA. TRAZODONE 2020-0 Yes [id number] 100mg TAKE 1 [facility] 100 mg 4-06 TABLET BY ity of tablet 00:00: MOUTH AT [place] 00 BEDTIME. Medical FOR Branch INSOMNIA. TRAZODONE 2020-0 Yes [id number] 100mg TAKE 1 [facility] 100 mg 4-06 TABLET BY ity of tablet 00:00: MOUTH AT [place] 00 BEDTIME. Medical FOR Branch INSOMNIA. TRAZODONE 2020-0 Yes [id number] 100mg TAKE 1 [facility] 100 mg 4-06 TABLET BY ity of tablet 00:00: MOUTH AT [place] 00 BEDTIME. Medical FOR Branch INSOMNIA. TRAZODONE 2020-0 Yes [id number] 100mg TAKE 1 [facility] 100 mg 4-06 TABLET BY ity of tablet 00:00: MOUTH AT [place] 00 BEDTIME. Medical FOR Branch INSOMNIA. TRAZODONE 2020-0 2020- No [id number] 100mg TAKE 1 [facility] 100 mg 4-06 08-24 TABLET BY ity of tablet 00:00: 00:00 MOUTH AT [place] 00 :00 BEDTIME. Medical FOR Branch INSOMNIA. TRAZODONE 2020-0 2020- No [id number] 100mg TAKE 1 [facility] 100 mg 4-06 08-24 TABLET BY ity of tablet 00:00: 00:00 MOUTH AT [place] 00 :00 BEDTIME. Medical FOR Branch INSOMNIA. TRAZODONE 2020-0 2020- No [id number] 100mg TAKE 1 [facility] 100 mg 4-06 08-24 TABLET BY ity of tablet 00:00: 00:00 MOUTH AT [place] 00 :00 BEDTIME. Medical FOR [place] INSOMNIA. levothyroxi 2020-0 Yes 37.5ug 37.5 mcg, [facility] ne 3-25 Oral, ity of (SYNTHROID) 11:00: QAM-0600, [place] tablet 37.5 00 First dose Me dical mcg on Sun [place] 12/10/19 at 0600, Until Discontinu ed, Routine apixaban 2020-0 Yes 10mg 10 mg, [facility] (ELIQUIS) 3-25 Oral, BID, ity of tablet 10 01:00: First dose [place] mg 00 on Sun [facility] 12/09/19 at Branch 1999, Until Discontinu ed, Routine alcaftadine 2020-[address] [facility] [place] (LASTACAFT) 3-25 each eye. ity of 0.25 % Drop 00:58: [place] 08 [facility] CYCLOSPORIN 2020-[address] in [place] [...] 3-25 mouth. ity of ITAMIN D3 00:58: [place] (VITAMIN 08 Medical D-3 ORAL) Branch oxyCODONE-a [...] oxyCODONE-a 2020-0 Yes 1{tbl} Take 1 [place] cetaminophe 3-25 tablet by ity of n [...] Medical Branch Magnesium 2020-0 Yes Take by [facility] 250 mg Tab 3-25 mouth. ity [...] needed for Pain. levothyroxi 2020-0 2020- No [id number] 50ug Take 1 [facility] ne 50 mcg 3-25 04-25 tablet by ity of tablet 00:00: 04:59 mouth [place] 00 :00 every Medical morning Branch for 30 days. levothyroxi 2020-0 2020- No [id number] 50ug Take 1 [facility] ne 50 mcg 3-25 04-25 tablet by ity of tablet 00:00: 04:59 mouth [place] 00 :00 every Medical morning Branch for 30 days. levothyroxi 2020-0 2020- No [id number] 50ug Take 1 [facility] ne 50 mcg 3-25 04-25 tablet by ity of tablet 00:00: 04:59 mouth [place] 00 :00 every Medical morning Branch for 30 days. levothyroxi 2020-0 2020- No [id number] 50ug Take 1 [facility] ne 50 mcg 3-25 04-25 tablet by ity of tablet 00:00: 04:59 mouth [place] 00 :00 every Medical morning Branch for 30 days. levothyroxi 2020-0 2020- No [id number] 50ug Take 1 [facility] ne 50 mcg 3-25 04-25 tablet by ity of tablet 00:00: 04:59 mouth [place] 00 :00 every Medical morning Branch for 30 days. levothyroxi 2020-0 2020- No [id number] 50ug Take 1 [facility] ne 50 mcg 3-25 04-25 tablet by ity of tablet 00:00: 04:59 mouth [place] 00 :00 every Medical morning Branch for 30 days. levothyroxi 2019-0 2020- No [id number] 50ug Take 1 [facility] ne 50 mcg 3-25 04-25 tablet by ity of tablet 00:00: 04:59 mouth [place] 00 :00 every Medical morning Branch for 30 days. levothyroxi 2020-0 2020- No [id number] 50ug Take 1 [facility] ne 50 mcg 3-25 04-20 tablet by ity of tablet 00:00: 00:00 mouth [place] 00 :00 every Medical morning Branch for 30 days. METFORMIN 2020-0 Yes [id number] TAKE 1 [place] [facility] 500 mg 3-24 TABLET BY ity o f 24 hr 00:00: MOUTH [place] tablet 00 EVERY DAY Medical WITH Branch BREAKFAST METFORMIN 2020-0 Yes [id number] TAKE 1 [place] [facility] 500 mg 3-24 TABLET BY ity o f 24 hr 00:00: MOUTH [place] tablet 00 EVERY DAY Medical WITH Branch BREAKFAST METFORMIN 2020-0 Yes [id number] TAKE 1 [place] [facility] 500 mg 3-24 TABLET BY ity o f 24 hr 00:00: MOUTH [place] tablet 00 EVERY DAY Medical WITH Branch BREAKFAST METFORMIN 2020-0 Yes [id number] TAKE 1 [place] 500 mg 3-24 TABLET BY ity o f 24 hr 00:00: MOUTH [place] tablet 00 EVERY DAY Medical WITH Branch BREAKFAST METFORMIN 2020-0 Yes [id number] TAKE 1 [place] [facility] 500 mg 3-24 TABLET BY ity o f 24 hr 00:00: MOUTH [place] tablet 00 EVERY DAY Medical WITH Branch BREAKFAST METFORMIN 2020-0 Yes [id number] TAKE 1 [place] [facility] 500 mg 3-24 TABLET BY ity o f 24 hr 00:00: MOUTH [place] tablet 00 EVERY DAY Medical WITH Branch BREAKFAST METFORMIN 2020-0 Yes [id number] TAKE 1 [place] [facility] 500 mg 3-24 TABLET BY ity o f 24 hr 00:00: MOUTH [place] tablet 00 EVERY DAY Medical WITH Branch BREAKFAST METFORMIN 2020-0 Yes [id number] TAKE 1 [place] [facility] 500 mg 3-24 TABLET BY ity o f 24 hr 00:00: MOUTH [place] tablet 00 EVERY DAY Medical WITH Branch BREAKFAST METFORMIN 2020-0 Yes [id number] TAKE 1 [place] [facility] 500 mg 3-24 TABLET BY ity o f 24 hr 00:00: MOUTH [place] tablet 00 EVERY DAY Medical WITH Branch BREAKFAST METFORMIN 2020-0 Yes [id number] TAKE 1 [place] [facility] 500 mg 3-24 TABLET BY ity o f 24 hr 00:00: MOUTH [place] tablet 00 EVERY DAY Medical WITH Branch BREAKFAST METFORMIN 2020-0 Yes [id number] TAKE 1 [place] [facility] 500 mg 3-24 TABLET BY ity o f 24 hr 00:00: MOUTH [place] tablet 00 EVERY DAY Medical WITH Branch BREAKFAST METFORMIN 2020-0 Yes [id number] TAKE 1 [place] [facility] 500 mg 3-24 TABLET BY ity o f 24 hr 00:00: MOUTH [place] tablet 00 EVERY DAY Medical WITH Branch BREAKFAST METFORMIN 2020-0 Yes [id number] TAKE 1 [place] [facility] 500 mg 3-24 TABLET BY ity o f 24 hr 00:00: MOUTH [place] tablet 00 EVERY DAY Medical WITH Branch BREAKFAST METFORMIN 2020-0 Yes [id number] TAKE 1 [place] [facility] 500 mg 3-24 TABLET BY ity o f 24 hr 00:00: MOUTH [place] tablet 00 EVERY DAY Medical WITH Branch BREAKFAST METFORMIN 2020-0 Yes [id number] TAKE 1 [place] [facility] 500 mg 3-24 TABLET BY ity o f 24 hr 00:00: MOUTH [place] tablet 00 EVERY DAY Medical WITH Branch BREAKFAST METFORMIN 2020-0 Yes [id number] TAKE 1 [place] [facility] 500 mg 3-24 TABLET BY ity o f 24 hr 00:00: MOUTH [place] tablet 00 EVERY DAY Medical WITH Branch BREAKFAST METFORMIN 2020-0 Yes [id number] TAKE 1 [place] [facility] 500 mg 3-24 TABLET BY ity o f 24 hr 00:00: MOUTH [place] tablet 00 EVERY DAY Medical WITH Branch BREAKFAST METFORMIN 2020-0 Yes [id number] TAKE 1 [place] [facility] 500 mg 3-24 TABLET BY ity o f 24 hr 00:00: MOUTH [place] tablet 00 EVERY DAY Medical WITH Branch BREAKFAST METFORMIN 2020-0 Yes [id number] TAKE 1 [place] [facility] 500 mg 3-24 TABLET BY ity o f 24 hr 00:00: MOUTH [place] tablet 00 EVERY DAY Medical WITH Branch BREAKFAST METFORMIN 2020-0 Yes [id number] TAKE 1 [place] [facility] 500 mg 3-24 TABLET BY ity o f 24 hr 00:00: MOUTH [place] tablet 00 EVERY DAY Medical WITH Branch BREAKFAST METFORMIN 2020-0 Yes [id number] TAKE 1 [place] [facility] 500 mg 3-24 TABLET BY ity o f 24 hr 00:00: MOUTH [place] tablet 00 EVERY DAY Medical WITH Branch BREAKFAST METFORMIN 2020-0 Yes [id number] TAKE 1 [place] [facility] 500 mg 3-24 TABLET BY ity o f 24 hr 00:00: MOUTH [place] tablet 00 EVERY DAY Medical WITH Branch BREAKFAST METFORMIN 2020-0 Yes [id number] TAKE 1 [place] [facility] 500 mg 3-24 TABLET BY ity o f 24 hr 00:00: MOUTH [place] tablet 00 EVERY DAY Medical WITH Branch BREAKFAST METFORMIN 2020-0 Yes [id number] TAKE 1 [place] ER 500 mg 3-24 TABLET BY ity o f 24 hr 00:00: MOUTH [place] tablet 00 EVERY DAY Medical WITH Branch BREAKFAST METFORMIN 2020-0 Yes [id number] TAKE 1 [place] [facility] 500 mg 3-24 TABLET BY ity o f 24 hr 00:00: MOUTH [place] tablet 00 EVERY DAY Medical WITH Branch BREAKFAST METFORMIN 2020-0 Yes [id number] TAKE 1 [place] [facility] 500 mg 3-24 TABLET BY ity o f 24 hr 00:00: MOUTH [place] tablet 00 EVERY DAY Medical WITH Branch BREAKFAST METFORMIN 2020-0 Yes [id number] TAKE 1 [place] [facility] 500 mg 3-24 TABLET BY ity o f 24 hr 00:00: MOUTH [place] tablet 00 EVERY DAY Medical WITH Branch BREAKFAST METFORMIN 2020-0 Yes [id number] TAKE 1 [place] [facility] 500 mg 3-24 TABLET BY ity o f 24 hr 00:00: MOUTH [place] tablet 00 EVERY DAY Medical WITH Branch BREAKFAST METFORMIN 2020-0 Yes [id number] TAKE 1 [place] [facility] 500 mg 3-24 TABLET BY ity o f 24 hr 00:00: MOUTH [place] tablet 00 EVERY DAY Medical WITH Branch BREAKFAST METFORMIN 2020-0 Yes [id number] TAKE 1 [place] [facility] 500 mg 3-24 TABLET BY ity o f 24 hr 00:00: MOUTH [place] tablet 00 EVERY DAY Medical WITH Branch BREAKFAST METFORMIN 2020-0 Yes [id number] TAKE 1 [place] [facility] 500 mg 3-24 TABLET BY ity o f 24 hr 00:00: MOUTH [place] tablet 00 EVERY DAY Medical WITH Branch BREAKFAST METFORMIN 2020-0 Yes [id number] TAKE 1 [place] [facility] 500 mg 3-24 TABLET BY ity o f 24 hr 00:00: MOUTH [place] tablet 00 EVERY DAY Medical WITH Branch BREAKFAST METFORMIN 2020-0 Yes [id number] TAKE 1 [place] 500 mg 3-24 TABLET BY ity o f 24 hr 00:00: MOUTH [place] tablet 00 EVERY DAY Medical WITH Branch BREAKFAST METFORMIN 2020-0 Yes [id number] TAKE 1 [place] [facility] 500 mg 3-24 TABLET BY ity o f 24 hr 00:00: MOUTH [place] tablet 00 EVERY DAY Medical WITH Branch BREAKFAST METFORMIN 2020-0 Yes [id number] TAKE 1 [place] [facility] 500 mg 3-24 TABLET BY ity o f 24 hr 00:00: MOUTH [place] tablet 00 EVERY DAY Medical WITH Branch BREAKFAST METFORMIN 2020-0 Yes [id number] TAKE 1 [place] 500 mg 3-24 TABLET BY ity o f 24 hr 00:00: MOUTH [place] tablet 00 EVERY DAY Medical WITH Branch BREAKFAST METFORMIN 2020-0 Yes [id number] TAKE 1 [place] 500 mg 3-24 TABLET BY ity o f 24 hr 00:00: MOUTH [place] tablet 00 EVERY DAY Medical WITH Branch BREAKFAST METFORMIN 2020-0 Yes [id number] TAKE 1 [place] 500 mg 3-24 TABLET BY ity o f 24 hr 00:00: MOUTH [place] tablet 00 EVERY DAY Medical WITH Branch BREAKFAST METFORMIN 2020-0 Yes [id number] TAKE 1 [place] [facility] 500 mg 3-24 TABLET BY ity o f 24 hr 00:00: MOUTH [place] tablet 00 EVERY DAY Medical WITH Branch BREAKFAST METFORMIN 2020-0 2020- No [id number] TAKE 1 [facility] 500 mg 3-24 10-05 TABLET BY ity of 24 hr 00:00: 00:00 MOUTH [place] tablet 00 :00 EVERY DAY Medical WITH Branch BREAKFAST METFORMIN 2020-0 2020- No [id number] TAKE 1 [facility] 500 mg 3- 10-05 TABLET BY ity of 24 hr [...] 5mg Take 1 [facility] mg tablet 12-08-14 tablet by ity of 00:00: 00:00 mouth 2 [place] 00 :00 (two) Medical times Branch daily for 90 days. Then decrease dose to 5 mg bid for 180 days Indication s: treatment to prevent a blood clot in the lung levoFLOXaci 2019- 2020- No [id number] 500mg Take 1 [facility] n 500 mg 12-08-30 tablet by ity o f tablet 00:00: 04:59 mouth [place] 00 :00 every 24 Medical ([facility] ur) hours for 5 days. levoFLOXaci 2019- 2020- No [id number] 500mg Take 1 [facility] n 500 mg 12-08-30 tablet by ity o f tablet 00:00: 04:59 mouth [place] 00 :00 every 24 Medical ([facility] ur) hours for 5 days. levoFLOXaci 2019- 2020- No [id number] 500mg Take 1 [facility] n 500 mg 12-08-30 tablet by ity o f tablet 00:00: 04:59 mouth [place] 00 :00 every 24 Medical ([facility] ur) hours for 5 days. levoFLOXaci 2019- 2020- No [id number] 500mg Take 1 [facility] n 500 mg 12-08-30 tablet by ity o f tablet 00:00: 04:59 mouth [place] 00 :00 every 24 Medical ([facility] ur) hours for 5 days. oxyCODONE-a 2019- Yes 1{tbl} Take 1 [place] cetaminophe 3-23 tablet by ity of n 7.5-325 03:06: mouth 2 [place] mg per 26 (two) Medical tablet times Branch daily as needed for Pain. oxyCODONE-a 2019- Yes 1{tbl} 1 tablet, [facility] cetaminophe 3-23 Oral, ity of n 03:06: Q6HPRN, [place] (PERCOCET) 13 Starting Medic al 5-325 mg [place] [facility] per tablet 12/07/19 at 1 tablet 2206, Until Discontinu ed, Pain (scale 7-10) traZODone 2019-0 Yes 100mg 100 mg, Univ ers (DESYREL) 3-23 Oral, QHS, ity of tablet 100 02:00: First dose [place] mg 00 on [place] [facility] 12/07/19 at Branch 2100, Until Discontinu ed, Routine levoFLOXaci 2020-0 Yes 750mg 750 mg, IV Univers n in D5W 12-06 Piggyback, ity o f (LEVAQUIN) 18:45: Q24H [place] mg/150 00 First dose Med ical mL on [facility] Piggyback 12/07/19 at 750 mg 1345, Until Discontinu ed, 150 mL
R lan for Anti-Infec tive: Empiric Therapy for Suspected Infection< br>Empiric Therapy Site: Urine
D uration of therapy: 7 days heparin 2020-0 2020- No 1300U/h at 13 Unive rs 25,000 12-06 03-24 mL/hr, ity of unit/250 mL 15:00: 22:04 1,300 [place] (Prem[place] :19 Units/hr Medica l Bag) in ([address] [place] [address] 0.45 % NS mL/hr), IV Infusion, CONTINUOUS , Starting [place] 12/07/19 at 1000, Until Sun12/09/19 at 1704, Routine triamterene 2020-0 Yes 1{tbl} 1 tablet, Univers -hydrochlor 12-06 Oral, ity of othiazid 14:00: DAILY, [place] (MAXZIDE-25 00 First dose Me dical ) 37.5-25 on [facility] mg tablet 1 12/07/19 at tablet 0900, Until Discontinu ed, Routine amLODIPine 2020-0 Yes 2.5mg 2.5 mg, Uni vers (NORVASC) 12-06 Oral, ity of tablet 2.5 14:00: DAILY, [place] mg 00 First dose Medical on [facility] 12/07/19 at 0900, Until Discontinu ed, Routine Sliding 2020-0 Yes Subcutaneo Univ ers Scale - us, TID ity of Insulin - 13:00: MEALS+HS, [place] as Aspart 00 First dose Medical (NOVOLOG) + on [facility] Fsbg 12/07/19 at Testing 0800, Until Discontinu ed, Routine omeprazole 2020-0 Yes 40mg 40 mg, Unive rs (PRILOSEC) 3- Oral, QAM ity of capsule 40 13:00: WITH [place] mg 00 BREAKFAST, Medical First dose Branch on [place] 12/07/19 at 0800, Until Discontinu ed
Facu lty member approving Non-formul familia medication : KELLY MITTAL
R lan for Non-Formul familia Use: PATIENT CURRENTLY TAKING NONFORMULA RY PRODUCT levothyroxi 2020-0 2020- No 25ug 25 mcg, Un [place] 12-06 03-24 Oral, ity of (SYNTHROID) 11:00: 19:39 QAM-0600, [place] tablet 25 00 :21 First dose Medi kacey mcg on [place] [facility] 12/07/19 at 0600, Until Discontinu ed, Routine glucagon 2020-0 Yes 1mg 1 mg, Univers (GLUCAGEN 12-06 Intramuscu ity of DIAGNOSTIC 10:24: lar, PRN, [place] KIT) 32 Starting Medical injection 1 [facility] mg 12/07/19 at 0524, Until Discontinu ed, BASIL, Blood Glucose < or = 70 mg/dL and patient is unable to swallow or has mental changes. dextrose 50 2020-0 Yes 25mL 25 mL, Univ ers % in water 12-06 Slow IV ity of (D50W) 10:24: Push, PRN, [place] injection 32 Starting Medica l 25 mL [facility] 12/07/19 at 0524, Until Discontinu ed, BASIL, Blood Glucose < or = 70 mg/dL and patient is unable to swallow or has mental status changes. CYCLOSPORIN 2020-[address] in [place] (RESTASIS 12-06 each eye. ity of OPHTHALMIC) 10:23: Medical Branch ASCORBATE 2020-0 Yes Take by [employer] [facility] CALCIUM 12-06 mouth. ity of (VITAMIN C 10:23: ORAL) Medical Branch DOCOSAHEXAN 2020-0 Yes Take by Uni vers OIC 12-06 mouth. ity of ACID/EPA 10:23: [place] (FISH OIL Medical ORAL) Branch vitamin E 2020-0 Yes 1000U Take 1,000 U nivers 1,000 unit 12-06 Units by ity o f capsule 10:23: mouth daily. Medical Branch Magnesium 2020-0 Yes Take by [employer] [facility] 250 mg Tab 12-06 mouth. ity of 10:23: Medical Branch vitamin B-6 2020-0 Yes 100mg Take 100 U nivers (VITAMIN 3-22 mg by ity of B-6) 100 mg 10:23: mouth [place] tablet 27 daily. Medical Branch CALCIUM 2020-[address] [facility] CARBONATE/V 12-06 mouth. ity of ITAMIN D3 10:23: [place] (VITAMIN 27 Medical D-3 ORAL) [place] albuterol-i 2020-0 Yes 1{puff} 1 [address], [facility] pratropium 12-06 Inhalation ity of (COMBIVENT 10:20: , Q6HPRN, [place] RESPIMAT[place] 41 Starting Medica l 20-100 [facility] mcg/actuati 12/07/19 at on inhaler 0520, 1 Puff Until Discontinu ed, Routine, Wheezing, Shortness of Breath hydralAZINE 2019-0 Yes 10mg 10 mg, Univ ers (APRESOLINE 12-06 Intravenou it y of ) injection 05:40: s, Q6HPRN, [place] 10 mg 38 Starting [facility] 12/07/19 at 0040, Until Discontinu ed, Routine, Hypertensi on acetaminoph 2020-0 Yes 650mg 650 mg, Un [place] en 12-06 Oral, ity of (TYLENOL) 05:40: Q6HPRN, [place] tablet 650 19 Starting Medic al mg [facility] 12/07/19 at 0040, Until Discontinu ed, Routine, Pain (scale 1-3), Temp > 38.5 C ondansetron 2019-0 Yes 4mg 4 mg, Slow Univers (ZOFRAN 12-06 IV Push, ity of (PF)) 05:22: Q6HPRN, [place] injection 4 26 Starting Medi kacey mg [facility] 12/07/19 at 0022, Until Discontinu ed, Routine, Nausea and Vomiting (N/V) traMADol 2020-0 2020- No 50mg 50 mg, Univer s (ULTRAM) 12-06 03-24 Oral, ity of tablet 50 05:22: 05:21 Q8HPRN, [place] mg 21 :21 Starting [facility] 12/07/19 at 0022, Until 12/09/19 at 0021, Routine, Pain (scale 4-6) alcaftadine 2020-[address] in Un [place] (LASTACAFT) 3-22 each eye. ity of 0.25 % Drop 03:51: [place] 00 Medical Branch heparin 2020-0 2020- No 1300U/h 1,300 Unive rs 25,000 12-06 Units/hr ity of unit/250 mL 03:45: 10:06 (13 [place] (Premixed 00 :17 mL/hr), IV Medi kacey Bag) in Infusion, [place] NaCl 0.45 % CONTINUOUS weight , Starting [...] Branch injection 2145, 120 mL Routine ipratropium 2019- 2020- No 3mL 3 mL, Univ ers -albuterol Inhalation it y of (DUONEB) 02:45: 02:46 , ONCE, 1 [place] 0.5 mg-3 00 :00 dose, Fri Medica l mg(2.5 mg 11/14/19 at Bran ch base)/3 mL 2044, BASIL nebulizer solution 3 mL predniSONE 2019- No 60mg 60 mg, Univ ers (DELTASONE) Oral, ity of tablet 60 02:15: 01:25 ONCE, 1 [place] mg 00 :00 dose, Fri Medical 11/14/19 at Branch 2014, BASIL ipratropium 2019-0 2020- No 3mL 3 mL, [place] [facility] ers -albuterol Inhalation it y of (DUONEB) 02:15: 01:32 , ONCE, 1 [place] 0.5 mg-3 00 :00 dose, Fri Medica l mg(2.5 mg 11/14/19 at Bran ch base)/3 mL 2014, BASIL nebulizer solution 3 mL azithromyci 2020-0 Yes Univer s n 250 mg 2-29 ity of tablet 00:00: [place] 00 Medical Branch predniSONE 2020-0 Yes 60mg Take 60 mg U nivers 20 mg 2-29 by mouth ity of tablet 00:00: every [place] 00 morning. Medical Branch cefpodoxime 2020-0 Yes 200mg Take 200 U nivers 200 mg 2-29 mg by ity of tablet 00:00: mouth 2 [place] (two) Medical times Branch daily. azithromyci 2020-0 Yes Univer s n 250 mg 2-29 ity of tablet 00:00: [place] 00 Medical Branch predniSONE 2020-0 Yes 60mg Take 60 mg U nivers 20 mg 2-29 by mouth ity of tablet 00:00: every [place] 00 morning. Medical Branch cefpodoxime 2020-0 Yes 200mg Take 200 U nivers 200 mg 2-29 mg by ity of tablet 00:00: mouth 2 [place] (two) Medical times Branch daily. azithromyci 2020-0 Yes Univer s n 250 mg 2-29 ity of tablet 00:00: [place] 00 Medical Branch predniSONE 2020-0 Yes 60mg Take 60 mg U nivers 20 mg 2-29 by mouth ity of tablet 00:00: every [place] 00 morning. Medical Branch cefpodoxime 2020-0 Yes 200mg Take 200 U nivers 200 mg 2-29 mg by ity of tablet 00:00: mouth 2 [place] (two) Medical times Branch daily. azithromyci 2020-0 Yes Univer s n 250 mg 2-29 ity of tablet 00:00: [place] 00 Medical Branch predniSONE 2020-0 Yes 60mg Take 60 mg U nivers 20 mg 2-29 by mouth ity of tablet 00:00: every [place] 00 morning. Medical Branch cefpodoxime 2020-0 Yes 200mg Take 200 U nivers 200 mg 2-29 mg by ity of tablet 00:00: mouth 2 [place] (two) Medical times Branch daily. azithromyci 2020-0 Yes Univer s n 250 mg 2-29 ity of tablet 00:00: [place] 00 Medical Branch predniSONE 2020-0 Yes 60mg Take 60 mg U nivers 20 mg 2-29 by mouth ity of tablet 00:00: every [place] 00 morning. Medical Branch cefpodoxime 2020-0 Yes 200mg Take 200 U nivers 200 mg 2-29 mg by ity of tablet 00:00: mouth 2 [place] (two) Medical times Branch daily. azithromyci 2020-0 Yes Univer s n 250 mg 2-29 ity of tablet 00:00: [place] 00 Medical Branch predniSONE 2020-0 Yes 60mg Take 60 mg U nivers 20 mg 2-29 by mouth ity of tablet 00:00: every [place] 00 morning. Medical Branch cefpodoxime 2020-0 Yes 200mg Take 200 U nivers 200 mg 2-29 mg by ity of tablet 00:00: mouth 2 [place] (two) Medical times Branch daily. azithromyci 2020-0 Yes Univer s n 250 mg 2-29 ity of tablet 00:00: [place] 00 Medical Branch predniSONE 2020-0 Yes 60mg Take 60 mg U nivers 20 mg 2-29 by mouth ity of tablet 00:00: every [place] 00 morning. Medical Branch cefpodoxime 2020-0 Yes 200mg Take 200 U nivers 200 mg 2-29 mg by ity of tablet 00:00: mouth 2 [place] (two) Medical times Branch daily. azithromyci 2020-0 Yes Univer s n 250 mg 2-29 ity of tablet 00:00: [place] 00 Medical Branch predniSONE 2020-0 Yes 60mg Take 60 mg U nivers 20 mg 2-29 by mouth ity of tablet 00:00: every [place] 00 morning. Medical Branch cefpodoxime 2020-0 Yes 200mg Take 200 U nivers 200 mg 2-29 mg by ity of tablet 00:00: mouth 2 [place] (two) Medical times Branch daily. azithromyci 2020-0 Yes Univer s n 250 mg 2-29 ity of tablet 00:00: [place] 00 Medical Branch predniSONE 2020-0 Yes 60mg Take 60 mg U nivers 20 mg 2-29 by mouth ity of tablet 00:00: every [place] 00 morning. Medical Branch cefpodoxime 2020-0 Yes 200mg Take 200 U nivers 200 mg 2-29 mg by ity of tablet 00:00: mouth 2 [place] (two) Medical times Branch daily. azithromyci 2020-0 Yes Univer s n 250 mg 2-29 ity of tablet 00:00: [place] 00 Medical Branch predniSONE 2020-0 Yes 60mg Take 60 mg U nivers 20 mg 2-29 by mouth ity of tablet 00:00: every [place] 00 morning. Medical Branch cefpodoxime 2020-0 Yes 200mg Take 200 U nivers 200 mg 2-29 mg by ity of tablet 00:00: mouth 2 [place] (two) Medical times Branch daily. azithromyci 2020-0 Yes Univer s n 250 mg 2-29 ity of tablet 00:00: [place] 00 Medical Branch predniSONE 2020-0 Yes 60mg Take 60 mg U nivers 20 mg 2-29 by mouth ity of tablet 00:00: every [place] 00 morning. Medical Branch cefpodoxime 2020-0 Yes 200mg Take 200 U nivers 200 mg 2-29 mg by ity of tablet 00:00: mouth 2 [place] (two) Medical times Branch daily. azithromyci 2020-0 Yes Univer s n 250 mg 2-29 ity of tablet 00:00: [place] 00 Medical Branch predniSONE 2020-0 Yes 60mg Take 60 mg U nivers 20 mg 2-29 by mouth ity of tablet 00:00: every [place] morning. Medical Branch cefpodoxime 2020-0 Yes 200mg Take 200 U nivers 200 mg 2-29 mg by ity of tablet 00:00: mouth 2 [place] (two) Medical times Branch daily. azithromyci 2020-0 Yes Univer s n 250 mg 2-29 ity of tablet 00:00: [place] 00 Medical Branch predniSONE 2020-0 Yes 60mg Take 60 mg U nivers 20 mg 2-29 by mouth ity of tablet 00:00: every [place] morning. Medical Branch cefpodoxime 2020-0 Yes 200mg Take 200 U nivers 200 mg 2-29 mg by ity of tablet 00:00: mouth 2 [place] (two) Medical times Branch daily. azithromyci 2020-0 Yes Univer s n 250 mg 2-29 ity of tablet 00:00: [place] 00 Medical Branch predniSONE 2020-0 Yes 60mg Take 60 mg U nivers 20 mg 2-29 by mouth ity of tablet 00:00: every [place] 00 morning. Medical Branch cefpodoxime 2020-0 Yes 200mg Take 200 U nivers 200 mg 2-29 mg by ity of tablet 00:00: mouth 2 [place] (two) Medical times Branch daily. azithromyci 2020-0 Yes Univer s n 250 mg 2-29 ity of tablet 00:00: [place] 00 Medical Branch predniSONE 2020-0 Yes 60mg Take 60 mg U nivers 20 mg 2-29 by mouth ity of tablet 00:00: every [place] 00 morning. Medical Branch cefpodoxime 2020-0 Yes 200mg Take 200 U nivers 200 mg 2-29 mg by ity of tablet 00:00: mouth 2 [place] (two) Medical times Branch daily. azithromyci 2020-0 Yes Univer s n 250 mg 2-29 ity of tablet 00:00: [place] 00 Medical Branch predniSONE 2020-0 Yes 60mg Take 60 mg U nivers 20 mg 2-29 by mouth ity of tablet 00:00: every [place] 00 morning. Medical Branch cefpodoxime 2020-0 Yes 200mg Take 200 U nivers 200 mg 2-29 mg by ity of tablet 00:00: mouth 2 [place] (two) Medical times Branch daily. azithromyci 2020-0 Yes Univer s n 250 mg 2-29 ity of tablet 00:00: [place] 00 Medical Branch predniSONE 2020-0 Yes 60mg Take 60 mg U nivers 20 mg 2-29 by mouth ity of tablet 00:00: every [place] 00 morning. Medical Branch cefpodoxime 2020-0 Yes 200mg Take 200 U nivers 200 mg 2-29 mg by ity of tablet 00:00: mouth 2 [place] (two) Medical times Branch daily. azithromyci 2020-0 Yes Univer s n 250 mg 2-29 ity of tablet 00:00: [place] 00 Medical Branch predniSONE 2020-0 Yes 60mg Take 60 mg U nivers 20 mg 2-29 by mouth ity of tablet 00:00: every [place] 00 morning. Medical Branch cefpodoxime 2020-0 Yes 200mg Take 200 U nivers 200 mg 2-29 mg by ity of tablet 00:00: mouth 2 [place] (two) Medical times Branch daily. azithromyci 2020-0 Yes Univer s n 250 mg 2-29 ity of tablet 00:00: [place] 00 Medical Branch predniSONE 2020-0 Yes 60mg Take 60 mg U nivers 20 mg 2-29 by mouth ity of tablet 00:00: every [place] 00 morning. Medical Branch cefpodoxime 2020-0 Yes 200mg Take 200 U nivers 200 mg 2-29 mg by ity of tablet 00:00: mouth 2 [place] 00 (two) Medical times Branch daily. azithromyci 2020-0 Yes Univer s n 250 mg 2-29 ity of tablet 00:00: [place] 00 Medical Branch predniSONE 2020-0 Yes 60mg Take 60 mg U nivers 20 mg 2-29 by mouth ity of tablet 00:00: every [place] 00 morning. Medical Branch azithromyci 2020-0 Yes Univer s n 250 mg 2-29 ity of tablet 00:00: [place] 00 Medical Branch predniSONE 2020-0 Yes 60mg Take 60 mg U nivers 20 mg 2-29 by mouth ity of tablet 00:00: every [place] 00 morning. Medical Branch azithromyci 2020-0 Yes Univer s n 250 mg 2-29 ity of tablet 00:00: [place] 00 Medical Branch predniSONE 2020-0 Yes 60mg Take 60 mg U nivers 20 mg 2-29 by mouth ity of tablet 00:00: every [place] 00 morning. Medical Branch azithromyci 2020-0 Yes Univer s n 250 mg 2-29 ity of tablet 00:00: [place] 00 Medical Branch predniSONE 2020-0 Yes 60mg Take 60 mg U nivers 20 mg 2-29 by mouth ity of tablet 00:00: every [place] 00 morning. Medical Branch azithromyci 2020-0 2020- No Unive rs n 250 mg 2-15 06-10 ity of tablet 00:00: 00:00 [place] 00 :00 Medical Branch predniSONE 2020-0 2020- No 60mg Take 60 mg Univers 20 mg 2-29 09-10 by mouth ity of tablet 00:00: 00:00 every [place] 00 :00 morning. Medical Branch cefpodoxime 2020-0 2020- No 200mg Take 200 Univers 200 mg 2-29 08-24 mg by ity of tablet 00:00: 00:00 mouth 2 [place] 00 :00 (two) Medical times Branch daily. cefpodoxime 2020-0 2020- No 200mg Take 200 Univers 200 mg 2-29 08-24 mg by ity of tablet 00:00: 00:00 mouth 2 [place] 00 :00 (two) Medical times Branch daily. cefpodoxime 2020-0 2020- No 200mg Take 200 Univers 200 mg 2-29 08-24 mg by ity of tablet 00:00: 00:00 mouth 2 [place] 00 :00 (two) Medical times Branch daily. albuterol 2020-0 Yes [id number] 2.5mg Inhale 3 Univers 2.5 mg /3 2-28 mL every 4 ity of mL (0.083 00:00: (four) [place] %) 00 hours as Medical nebulizer needed for Bran ch solution Wheezing or Shortness of Breath. albuterol 2020-0 Yes [id number] 2.5mg Inhale 3 Univers 2.5 mg /3 2-28 mL every 4 ity of mL (0.083 00:00: (four) [place] %) 00 hours as Medical nebulizer needed for Bran ch solution Wheezing or Shortness of Breath. albuterol 2020-0 Yes [id number] 2.5mg Inhale 3 Univers 2.5 mg /3 2-28 mL every 4 ity of mL (0.083 00:00: (four) [place] %) 00 hours as Medical nebulizer needed for Bran ch solution Wheezing or Shortness of Breath. albuterol 2020-0 Yes [id number] 2.5mg Inhale 3 Univers 2.5 mg /3 2-28 mL every 4 ity of mL (0.083 00:00: (four) [place] %) 00 hours as Medical nebulizer needed for Bran ch solution Wheezing or Shortness of Breath. albuterol 2020-0 Yes [id number] 2.5mg Inhale 3 Univers 2.5 mg /3 2-28 mL every 4 ity of mL (0.083 00:00: (four) [place] %) 00 hours as Medical nebulizer needed for Bran ch solution Wheezing or Shortness of Breath. albuterol 2020-0 Yes [id number] 2.5mg Inhale 3 Univers 2.5 mg /3 2-28 mL every 4 ity of mL (0.083 00:00: (four) [place] %) 00 hours as Medical nebulizer needed for Bran ch solution Wheezing or Shortness of Breath. albuterol 2020-0 Yes [id number] 2.5mg Inhale 3 Univers 2.5 mg /3 2-28 mL every 4 ity of mL (0.083 00:00: (four) [place] %) 00 hours as Medical nebulizer needed for Bran ch solution Wheezing or Shortness of Breath. albuterol 2020-0 Yes [id number] 2.5mg Inhale 3 Univers 2.5 mg /3 2-28 mL every 4 ity of mL (0.083 00:00: (four) [place] %) 00 hours as Medical nebulizer needed for Bran ch solution Wheezing or Shortness of Breath. albuterol 2020-0 Yes [id number] 2.5mg Inhale 3 Univers 2.5 mg /3 2-28 mL every 4 ity of mL (0.083 00:00: (four) [place] %) 00 hours as Medical nebulizer needed for Bran ch solution Wheezing or Shortness of Breath. albuterol 2020-0 Yes [id number] 2.5mg Inhale 3 Univers 2.5 mg /3 2-28 mL every 4 ity of mL (0.083 00:00: (four) [place] %) 00 hours as Medical nebulizer needed for Bran ch solution Wheezing or Shortness of Breath. albuterol 2020-0 Yes [id number] 2.5mg Inhale 3 Univers 2.5 mg /3 2-28 mL every 4 ity of mL (0.083 00:00: (four) [place] %) 00 hours as Medical nebulizer needed for Bran ch solution Wheezing or Shortness of Breath. albuterol 2020-0 Yes [id number] 2.5mg Inhale 3 Univers 2.5 mg /3 2-28 mL every 4 ity of mL (0.083 00:00: (four) [place] %) 00 hours as Medical nebulizer needed for Bran ch solution Wheezing or Shortness of Breath. albuterol 2020-0 Yes [id number] 2.5mg Inhale 3 Univers 2.5 mg /3 2-28 mL every 4 ity of mL (0.083 00:00: (four) [place] %) 00 hours as Medical nebulizer needed for Bran ch solution Wheezing or Shortness of Breath. albuterol 2020-0 Yes [id number] 2.5mg Inhale 3 Univers 2.5 mg /3 2-28 mL every 4 ity of mL (0.083 00:00: (four) [place] %) 00 hours as Medical nebulizer needed for Bran ch solution Wheezing or Shortness of Breath. albuterol 2020-0 Yes [id number] 2.5mg Inhale 3 Univers 2.5 mg /3 2-28 mL every 4 ity of mL (0.083 00:00: (four) [place] %) 00 hours as Medical nebulizer needed for Bran ch solution Wheezing or Shortness of Breath. albuterol 2020-0 Yes [id number] 2.5mg Inhale 3 Univers 2.5 mg /3 2-28 mL every 4 ity of mL (0.083 00:00: (four) [place] %) 00 hours as Medical nebulizer needed for Bran ch solution Wheezing or Shortness of Breath. albuterol 2020-0 Yes [id number] 2.5mg Inhale 3 Univers 2.5 mg /3 2-28 mL every 4 ity of mL (0.083 00:00: (four) [place] %) 00 hours as Medical nebulizer needed for Bran ch solution Wheezing or Shortness of Breath. albuterol 2020-0 Yes [id number] 2.5mg Inhale 3 Univers 2.5 mg /3 2-28 mL every 4 ity of mL (0.083 00:00: ([facility]) [place] %) 00 hours as Medical nebulizer needed for Bran ch solution Wheezing or Shortness of Breath. albuterol 2020-0 Yes [id number] 2.5mg Inhale 3 Univers 2.5 mg /3 2-28 mL every 4 ity of mL (0.083 00:00: (four) [place] %) 00 hours as Medical nebulizer needed for Bran ch solution Wheezing or Shortness of Breath. albuterol 2020-0 Yes [id number] 2.5mg Inhale 3 Univers 2.5 mg /3 2-28 mL every 4 ity of mL (0.083 00:00: (four) [place] %) 00 hours as Medical nebulizer needed for Bran ch solution Wheezing or Shortness of Breath. albuterol 2020-0 Yes [id number] 2.5mg Inhale 3 Univers 2.5 mg /3 2-28 mL every 4 ity of mL (0.083 00:00: (four) [place] %) 00 hours as Medical nebulizer needed for Bran ch solution Wheezing or Shortness of Breath. albuterol 2020-0 Yes [id number] 2.5mg Inhale 3 Univers 2.5 mg /3 2-28 mL every 4 ity of mL (0.083 00:00: (four) [place] %) 00 hours as Medical nebulizer needed for Bran ch solution Wheezing or Shortness of Breath. albuterol 2020-0 Yes [id number] 2.5mg Inhale 3 Univers 2.5 mg /3 2-28 mL every 4 ity of mL (0.083 00:00: (four) [place] %) 00 hours as Medical nebulizer needed for Bran ch solution Wheezing or Shortness of Breath. albuterol 2020-0 Yes [id number] 2.5mg Inhale 3 Univers 2.5 mg /3 2-28 mL every 4 ity of mL (0.083 00:00: (four) [place] %) 00 hours as Medical nebulizer needed for Bran ch solution Wheezing or Shortness of Breath. albuterol 2020-0 Yes [id number] 2.5mg Inhale 3 Univers 2.5 mg /3 2-28 mL every 4 ity of mL (0.083 00:00: (four) [place] %) 00 hours as Medical nebulizer needed for Bran ch solution Wheezing or Shortness of Breath. albuterol 2020-0 Yes [id number] 2.5mg Inhale 3 Univers 2.5 mg /3 2-28 mL every 4 ity of mL (0.083 00:00: (four) [place] %) 00 hours as Medical nebulizer needed for Bran ch solution Wheezing or Shortness of Breath. albuterol 2020-0 Yes [id number] 2.5mg Inhale 3 Univers 2.5 mg /3 2-28 mL every 4 ity of mL (0.083 00:00: (four) [place] %) 00 hours as Medical nebulizer needed for Bran ch solution Wheezing or Shortness of Breath. albuterol 2020-0 Yes [id number] 2.5mg Inhale 3 Univers 2.5 mg /3 2-28 mL every 4 ity of mL (0.083 00:00: (four) [place] %) 00 hours as Medical nebulizer needed for Bran ch solution Wheezing or Shortness of Breath. albuterol 2020-0 Yes [id number] 2.5mg Inhale 3 Univers 2.5 mg /3 2-28 mL every 4 ity of mL (0.083 00:00: (four) [place] %) 00 hours as Medical nebulizer needed for Bran ch solution Wheezing or Shortness of Breath. albuterol 2020-0 Yes [id number] 2.5mg Inhale 3 Univers 2.5 mg /3 2-28 mL every 4 ity of mL (0.083 00:00: ([facility]) [place] %) 00 hours as Medical nebulizer needed for Bran ch solution Wheezing or Shortness of Breath. albuterol 2020-0 Yes [id number] 2.5mg Inhale 3 Univers 2.5 mg /3 2-28 mL every 4 ity of mL (0.083 00:00: ([facility]) [place] %) 00 hours as Medical nebulizer needed for Bran ch solution Wheezing or Shortness of Breath. albuterol 2020-0 Yes [id number] 2.5mg Inhale 3 Univers 2.5 mg /3 2-28 mL every 4 ity of mL (0.083 00:00: ([facility]) [place] %) 00 hours as Medical nebulizer needed for Bran ch solution Wheezing or Shortness of Breath. albuterol 2020-0 Yes [id number] 2.5mg Inhale 3 Univers 2.5 mg /3 2-28 mL every 4 ity of mL (0.083 00:00: ([facility]) [place] %) 00 hours as Medical nebulizer needed for Bran ch solution Wheezing or Shortness of Breath. albuterol 2020-0 Yes [id number] 2.5mg Inhale 3 Univers 2.5 mg /3 2-28 mL every 4 ity of mL (0.083 00:00: ([facility]) [place] %) 00 hours as Medical nebulizer needed for Bran ch solution Wheezing or Shortness of Breath. albuterol 2020-0 Yes [id number] 2.5mg Inhale 3 Univers 2.5 mg /3 2-28 mL every 4 ity of mL (0.083 00:00: ([facility]) [place] %) 00 hours as Medical nebulizer needed for Bran ch solution Wheezing or Shortness of Breath. albuterol 2020-0 Yes [id number] 2.5mg Inhale 3 Univers 2.5 mg /3 2-28 mL every 4 ity of mL (0.083 00:00: ([facility]) [place] %) 00 hours as Medical nebulizer needed for Bran ch solution Wheezing or Shortness of Breath. albuterol 2020-0 Yes [id number] 2.5mg Inhale 3 Univers 2.5 mg /3 2-28 mL every 4 ity of mL (0.083 00:00: ([facility]) [place] %) 00 hours as Medical nebulizer needed for Bran ch solution Wheezing or Shortness of Breath. albuterol 2020-0 Yes [id number] 2.5mg Inhale 3 Univers 2.5 mg /3 2-28 mL every 4 ity of mL (0.083 00:00: (four) [place] %) 00 hours as Medical nebulizer needed for Bran ch solution Wheezing or Shortness of Breath. albuterol 2020-0 Yes [id number] 2.5mg Inhale 3 Univers 2.5 mg /3 2-28 mL every 4 ity of mL (0.083 00:00: (four) [place] %) 00 hours as Medical nebulizer needed for Bran ch solution Wheezing or Shortness of Breath. albuterol 2020-0 Yes [id number] 2.5mg Inhale 3 Univers 2.5 mg /3 2-28 mL every 4 ity of mL (0.083 00:00: (four) [place] %) 00 hours as Medical nebulizer needed for Bran ch solution Wheezing or Shortness of Breath. albuterol 2020-0 Yes [id number] 2.5mg Inhale 3 Univers 2.5 mg /3 2-28 mL every 4 ity of mL (0.083 00:00: (four) [place] %) 00 hours as Medical nebulizer needed for Bran ch solution Wheezing or Shortness of Breath. albuterol 2020-0 Yes [id number] 2.5mg Inhale 3 Univers 2.5 mg /3 2-28 mL every 4 ity of mL (0.083 00:00: (four) [place] %) 00 hours as Medical nebulizer needed for Bran ch solution Wheezing or Shortness of Breath. albuterol 2020-0 Yes [id number] 2.5mg Inhale 3 Univers 2.5 mg /3 2-28 mL every 4 ity of mL (0.083 00:00: (four) [place] %) 00 hours as Medical nebulizer needed for Bran ch solution Wheezing or Shortness of Breath. albuterol 2020-0 Yes [id number] 2.5mg Inhale 3 [facility] 2.5 mg /3 2-28 mL every 4 ity of mL (0.083 00:00: (four) [place] %) 00 hours as Medical nebulizer needed for Bran ch solution Wheezing or Shortness of Breath. albuterol 2020-0 Yes [id number] 2.5mg Inhale 3 [facility] 2.5 mg /3 2-28 mL every 4 ity of mL (0.083 00:00: ([facility]) [place] %) 00 hours as Medical nebulizer needed for Bran ch solution Wheezing or Shortness of Breath. albuterol 2020-0 Yes [id number] 2.5mg Inhale 3 [facility] 2.5 mg /3 2-28 mL every 4 ity of mL (0.083 00:00: (four) [place] %) 00 hours as Medical nebulizer needed for Bran ch solution Wheezing or Shortness of Breath. albuterol 2020-0 Yes [id number] 2.5mg Inhale 3 [facility] 2.5 mg /3 2-28 mL every 4 ity of mL (0.083 00:00: ([facility]) [place] %) 00 hours as Medical nebulizer needed for Bran ch solution Wheezing or Shortness of Breath. albuterol 2020-0 Yes [id number] 2.5mg Inhale 3 [facility] 2.5 mg /3 2-28 mL every 4 ity of mL (0.083 00:00: ([facility]) [place] %) 00 hours as Medical nebulizer needed for Bran ch solution Wheezing or Shortness of Breath. albuterol 2020-0 Yes [id number] 2.5mg Inhale 3 [facility] 2.5 mg /3 2-28 mL every 4 ity of mL (0.083 00:00: ([facility]) [place] %) 00 hours as Medical nebulizer needed for Bran ch solution Wheezing or Shortness of Breath. albuterol 2020-0 Yes [id number] 2.5mg Inhale 3 [facility] 2.5 mg /3 2-28 mL every 4 ity of mL (0.083 00:00: ([facility]) [place] %) 00 hours as Medical nebulizer needed for Bran ch solution Wheezing or Shortness of Breath. albuterol 2020-0 Yes [id number] 2.5mg Inhale 3 [facility] 2.5 mg /3 2-28 mL every 4 ity of mL (0.083 00:00: (four) [place] %) 00 hours as Medical nebulizer needed for Bran ch solution Wheezing or Shortness of Breath. albuterol 2020-0 Yes [id number] 2.5mg Inhale 3 [facility] 2.5 mg /3 2-28 mL every 4 ity of mL (0.083 00:00: (four) [place] %) 00 hours as Medical nebulizer needed for Bran ch solution Wheezing or Shortness of Breath. albuterol 2020-0 Yes [id number] 2.5mg Inhale 3 [facility] 2.5 mg /3 2-28 mL every 4 ity of mL (0.083 00:00: (four) [place] %) 00 hours as Medical nebulizer needed for Bran ch solution Wheezing or Shortness of Breath. albuterol 2020-0 Yes [id number] 2.5mg Inhale 3 [facility] 2.5 mg /3 2-28 mL every 4 ity of mL (0.083 00:00: ([facility]) [place] %) 00 hours as Medical nebulizer needed for Bran ch solution Wheezing or Shortness of Breath. albuterol 2020-0 Yes [id number] 2.5mg Inhale 3 [facility] 2.5 mg /3 2-28 mL every 4 ity of mL (0.083 00:00: ([facility]) [place] %) 00 hours as Medical nebulizer needed for Bran ch solution Wheezing or Shortness of Breath. albuterol 2020-0 Yes [id number] 2.5mg Inhale 3 [facility] 2.5 mg /3 2-28 mL every 4 ity of mL (0.083 00:00: ([facility]) [place] %) 00 hours as Medical nebulizer needed for Bran ch solution Wheezing or Shortness of Breath. albuterol 2020-0 Yes [id number] 2.5mg Inhale 3 [facility] 2.5 mg /3 2-28 mL every 4 ity of mL (0.083 00:00: ([facility]) [place] %) 00 hours as Medical nebulizer needed for Bran ch solution Wheezing or Shortness of Breath. albuterol 2020-0 Yes [id number] 2.5mg Inhale 3 [facility] 2.5 mg /3 2-28 mL every 4 ity of mL (0.083 00:00: (four) [place] %) 00 hours as Medical nebulizer needed for Bran ch solution Wheezing or Shortness of Breath. albuterol 2020-0 Yes [id number] 2.5mg Inhale 3 [facility] 2.5 mg /3 2-28 mL every 4 ity of mL (0.083 00:00: ([facility]) [place] %) 00 hours as Medical nebulizer needed for Bran ch solution Wheezing or Shortness of Breath. albuterol 2020-0 Yes [id number] 2.5mg Inhale 3 [facility] 2.5 mg /3 2-28 mL every 4 ity of mL (0.083 00:00: ([facility]) [place] %) 00 hours as Medical nebulizer needed for Bran ch solution Wheezing or Shortness of Breath. albuterol 2020-0 Yes [id number] 2.5mg Inhale 3 [facility] 2.5 mg /3 2-28 mL every 4 ity of mL (0.083 00:00: ([facility]) [place] %) 00 hours as Medical nebulizer needed for Bran ch solution Wheezing or Shortness of Breath. albuterol 2020-0 Yes [id number] 2.5mg Inhale 3 [facility] 2.5 mg /3 2-28 mL every 4 ity of mL (0.083 00:00: ([facility]) [place] %) 00 hours as Medical nebulizer needed for Bran ch solution Wheezing or Shortness of Breath. albuterol 2020-0 Yes [id number] 2.5mg Inhale 3 [facility] 2.5 mg /3 2-28 mL every 4 ity of mL (0.083 00:00: ([facility]) [place] %) 00 hours as Medical nebulizer needed for Bran ch solution Wheezing or Shortness of Breath. albuterol 2020-0 Yes [id number] 2.5mg Inhale 3 [facility] 2.5 mg /3 2-28 mL every 4 ity of mL (0.083 00:00: ([facility]) [place] %) 00 hours as Medical nebulizer needed for Bran ch solution Wheezing or Shortness of Breath. albuterol 2020-0 Yes [id number] 2.5mg Inhale 3 [facility] 2.5 mg /3 2-28 mL every 4 ity of mL (0.083 00:00: ([facility]) [place] %) 00 hours as Medical nebulizer needed for Bran ch solution Wheezing or Shortness of Breath. albuterol 2020-0 Yes [id number] 2.5mg Inhale 3 [facility] 2.5 mg /3 2-28 mL every 4 ity of mL (0.083 00:00: ([facility]) [place] %) 00 hours as Medical nebulizer needed for Bran ch solution Wheezing or Shortness of Breath. albuterol 2020-0 Yes [id number] 2.5mg Inhale 3 [facility] 2.5 mg /3 2-28 mL every 4 ity of mL (0.083 00:00: (four) [place] %) 00 hours as Medical nebulizer needed for Bran ch solution Wheezing or Shortness of Breath. albuterol 2020-0 Yes [id number] 2.5mg Inhale 3 [facility] 2.5 mg /3 2-28 mL every 4 ity of mL (0.083 00:00: (four) [place] %) 00 hours as Medical nebulizer needed for Bran ch solution Wheezing or Shortness of Breath. albuterol 2020-0 Yes [id number] 2.5mg Inhale 3 [facility] 2.5 mg /3 2-28 mL every 4 ity of mL (0.083 00:00: (four) [place] %) 00 hours as Medical nebulizer needed for Bran ch solution Wheezing or Shortness of Breath. albuterol 2020-0 Yes [id number] 2.5mg Inhale 3 [facility] 2.5 mg /3 2-28 mL every 4 ity of mL (0.083 00:00: (four) [place] %) 00 hours as Medical nebulizer needed for Bran ch solution Wheezing or Shortness of Breath. albuterol 2020-0 Yes [id number] 2.5mg Inhale 3 [facility] 2.5 mg /3 2-28 mL every 4 ity of mL (0.083 00:00: (four) [place] %) 00 hours as Medical nebulizer needed for Bran ch solution Wheezing or Shortness of Breath. albuterol 2020-0 Yes [id number] 2.5mg Inhale 3 [facility] 2.5 mg /3 2-28 mL every 4 ity of mL (0.083 00:00: (four) [place] %) 00 hours as Medical nebulizer needed for Bran ch solution Wheezing or Shortness of Breath. albuterol 2020-0 Yes [id number] 2.5mg Inhale 3 [facility] 2.5 mg /3 2-28 mL every 4 ity of mL (0.083 00:00: (four) [place] %) 00 hours as Medical nebulizer needed for Bran ch solution Wheezing or Shortness of Breath. albuterol 2020-0 Yes [id number] 2.5mg Inhale 3 [facility] 2.5 mg /3 2-28 mL every 4 ity of mL (0.083 00:00: (four) [place] %) 00 hours as Medical nebulizer needed for Bran ch solution Wheezing or Shortness of Breath. albuterol 2020-0 Yes [id number] 2.5mg Inhale 3 [facility] 2.5 mg /3 2-28 mL every 4 ity of mL (0.083 00:00: ([facility]) [place] %) 00 hours as Medical nebulizer needed for Bran ch solution Wheezing or Shortness of Breath. albuterol 2020-0 Yes [id number] 2.5mg Inhale 3 [facility] 2.5 mg /3 2-28 mL every 4 ity of mL (0.083 00:00: ([facility]) [place] %) 00 hours as Medical nebulizer needed for Bran ch solution Wheezing or Shortness of Breath. albuterol 2020-0 Yes [id number] 2.5mg Inhale 3 [facility] 2.5 mg /3 2-28 mL every 4 ity of mL (0.083 00:00: ([facility]) [place] %) 00 hours as Medical nebulizer needed for Bran ch solution Wheezing or Shortness of Breath. albuterol 2020-0 Yes [id number] 2.5mg Inhale 3 [facility] 2.5 mg /3 2-28 mL every 4 ity of mL (0.083 00:00: ([facility]) [place] %) 00 hours as Medical nebulizer needed for Bran ch solution Wheezing or Shortness of Breath. albuterol 2020-0 Yes [id number] 2.5mg Inhale 3 [facility] 2.5 mg /3 2-28 mL every 4 ity of mL (0.083 00:00: ([facility]) [place] %) 00 hours as Medical nebulizer needed for Bran ch solution Wheezing or Shortness of Breath. albuterol 2020-0 Yes [id number] 2.5mg Inhale 3 [facility] 2.5 mg /3 2-28 mL every 4 ity of mL (0.083 00:00: ([facility]) [place] %) 00 hours as Medical nebulizer needed for Bran ch solution Wheezing or Shortness of Breath. albuterol 2020-0 Yes [id number] 2.5mg Inhale 3 [facility] 2.5 mg /3 2-28 mL every 4 ity of mL (0.083 00:00: ([facility]) [place] %) 00 hours as Medical nebulizer needed for Bran ch solution Wheezing or Shortness of Breath. albuterol 2020-0 Yes [id number] 2.5mg Inhale 3 [facility] 2.5 mg /3 2-28 mL every 4 ity of mL (0.083 00:00: (four) [place] %) 00 hours as Medical nebulizer needed for Bran ch solution Wheezing or Shortness of Breath. albuterol 2020-0 Yes [id number] 2.5mg Inhale 3 [facility] 2.5 mg /3 2-28 mL every 4 ity of mL (0.083 00:00: (four) [place] %) 00 hours as Medical nebulizer needed for Bran ch solution Wheezing or Shortness of Breath. albuterol 2020-0 Yes [id number] 2.5mg Inhale 3 [facility] 2.5 mg /3 2-28 mL every 4 ity of mL (0.083 00:00: (four) [place] %) 00 hours as Medical nebulizer needed for Bran ch solution Wheezing or Shortness of Breath. albuterol 2020-0 Yes [id number] 2.5mg Inhale 3 [facility] 2.5 mg /3 2-28 mL every 4 ity of mL (0.083 00:00: (four) [place] %) 00 hours as Medical nebulizer needed for Bran ch solution Wheezing or Shortness of Breath. albuterol 2020-0 Yes [id number] 2.5mg Inhale 3 [facility] 2.5 mg /3 2-28 mL every 4 ity of mL (0.083 00:00: (four) [place] %) 00 hours as Medical nebulizer needed for Bran ch solution Wheezing or Shortness of Breath. albuterol 2020-0 Yes [id number] 2.5mg Inhale 3 [facility] 2.5 mg /3 2-28 mL every 4 ity of mL (0.083 00:00: (four) [place] %) 00 hours as Medical nebulizer needed for Bran ch solution Wheezing or Shortness of Breath. albuterol 2020-0 Yes [id number] 2.5mg Inhale 3 [facility] 2.5 mg /3 2-28 mL every 4 ity of mL (0.083 00:00: (four) [place] %) 00 hours as Medical nebulizer needed for Bran ch solution Wheezing or Shortness of Breath. albuterol 2020-0 Yes [id number] 2.5mg Inhale 3 [facility] 2.5 mg /3 2-28 mL every 4 ity of mL (0.083 00:00: (four) [place] %) 00 hours as Medical nebulizer needed for Bran ch solution Wheezing or Shortness of Breath. albuterol 2020-0 Yes [id number] 2.5mg Inhale 3 [facility] 2.5 mg /3 2-28 mL every 4 ity of mL (0.083 00:00: ([facility]) [place] %) 00 hours as Medical nebulizer needed for Bran ch solution Wheezing or Shortness of Breath. albuterol 2020-0 Yes [id number] 2.5mg Inhale 3 [facility] 2.5 mg /3 2-28 mL every 4 ity of mL (0.083 00:00: ([facility]) [place] %) 00 hours as Medical nebulizer needed for Bran ch solution Wheezing or Shortness of Breath. albuterol 2020-0 Yes [id number] 2.5mg Inhale 3 [facility] 2.5 mg /3 2-28 mL every 4 ity of mL (0.083 00:00: ([facility]) [place] %) 00 hours as Medical nebulizer needed for Bran ch solution Wheezing or Shortness of Breath. albuterol 2020-0 Yes [id number] 2.5mg Inhale 3 [facility] 2.5 mg /3 2-28 mL every 4 ity of mL (0.083 00:00: ([facility]) [place] %) 00 hours as Medical nebulizer needed for Bran ch solution Wheezing or Shortness of Breath. albuterol 2020-0 Yes [id number] 2.5mg Inhale 3 [facility] 2.5 mg /3 2-28 mL every 4 ity of mL (0.083 00:00: (four) [place] %) 00 hours as Medical nebulizer needed for Bran ch solution Wheezing or Shortness of Breath. albuterol 2020-0 Yes [id number] 2.5mg Inhale 3 [facility] 2.5 mg /3 2-28 mL every 4 ity of mL (0.083 00:00: (four) [place] %) 00 hours as Medical nebulizer needed for Bran ch solution Wheezing or Shortness of Breath. albuterol 2020-0 Yes [id number] 2.5mg Inhale 3 [facility] 2.5 mg /3 2-28 mL every 4 ity of mL (0.083 00:00: (four) [place] %) 00 hours as Medical nebulizer needed for Bran ch solution Wheezing or Shortness of Breath. albuterol 2020-0 Yes [id number] 2.5mg Inhale 3 [facility] 2.5 mg /3 2-28 mL every 4 ity of mL (0.083 00:00: (four) [place] %) 00 hours as Medical nebulizer needed for Bran ch solution Wheezing or Shortness of Breath. albuterol 2020-0 Yes [id number] 2.5mg Inhale 3 [facility] 2.5 mg /3 2-28 mL every 4 ity of mL (0.083 00:00: (four) [place] %) 00 hours as Medical nebulizer needed for Bran ch solution Wheezing or Shortness of Breath. albuterol 2020-0 Yes [id number] 2.5mg Inhale 3 [facility] 2.5 mg /3 2-28 mL every 4 ity of mL (0.083 00:00: (four) [place] %) 00 hours as Medical nebulizer needed for Bran ch solution Wheezing or Shortness of Breath. albuterol 2020-0 Yes [id number] 2.5mg Inhale 3 [facility] 2.5 mg /3 2-28 mL every 4 ity of mL (0.083 00:00: (four) [place] %) 00 hours as Medical nebulizer needed for Bran ch solution Wheezing or Shortness of Breath. albuterol 2020-0 Yes [id number] 2.5mg Inhale 3 [facility] 2.5 mg /3 2-28 mL every 4 ity of mL (0.083 00:00: (four) [place] %) 00 hours as Medical nebulizer needed for Bran ch solution Wheezing or Shortness of Breath. albuterol 2020-0 Yes [id number] 2.5mg Inhale 3 [facility] 2.5 mg /3 2-28 mL every 4 ity of mL (0.083 00:00: (four) [place] %) 00 hours as Medical nebulizer needed for Bran ch solution Wheezing or Shortness of Breath. albuterol 2020-0 Yes [id number] 2.5mg Inhale 3 [facility] 2.5 mg /3 2-28 mL every 4 ity of mL (0.083 00:00: (four) [place] %) 00 hours as Medical nebulizer needed for Bran ch solution Wheezing or Shortness of Breath. albuterol 2020-0 Yes [id number] 2.5mg Inhale 3 [facility] 2.5 mg /3 2-28 mL every 4 ity of mL (0.083 00:00: (four) [place] %) 00 hours as Medical nebulizer needed for Bran ch solution Wheezing or Shortness of Breath. albuterol 2020-0 Yes [id number] 2.5mg Inhale 3 [facility] 2.5 mg /3 2-28 mL every 4 ity of mL (0.083 00:00: (four) [place] %) 00 hours as Medical nebulizer needed for Bran ch solution Wheezing or Shortness of Breath. albuterol 2020-0 Yes [id number] 2.5mg Inhale 3 [facility] 2.5 mg /3 2-28 mL every 4 ity of mL (0.083 00:00: (four) [place] %) 00 hours as Medical nebulizer needed for Bran ch solution Wheezing or Shortness of Breath. albuterol 2020-0 Yes [id number] 2.5mg Inhale 3 [facility] 2.5 mg /3 2-28 mL every 4 ity of mL (0.083 00:00: (four) [place] %) 00 hours as Medical nebulizer needed for Bran ch solution Wheezing or Shortness of Breath. albuterol 2020-0 Yes [id number] 2.5mg Inhale 3 [facility] 2.5 mg /3 2-28 mL every 4 ity of mL (0.083 00:00: (four) [place] %) 00 hours as Medical nebulizer needed for Bran ch solution Wheezing or Shortness of Breath. albuterol 2020-0 Yes [id number] 2.5mg Inhale 3 [facility] 2.5 mg /3 2-28 mL every 4 ity of mL (0.083 00:00: (four) [place] %) 00 hours as Medical nebulizer needed for Bran ch solution Wheezing or Shortness of Breath. albuterol 2020-0 Yes [id number] 2.5mg Inhale 3 [facility] 2.5 mg /3 2-28 mL every 4 ity of mL (0.083 00:00: (four) [place] %) 00 hours as Medical nebulizer needed for Bran ch solution Wheezing or Shortness of Breath. albuterol 2020-0 Yes [id number] 2.5mg Inhale 3 [facility] 2.5 mg /3 2-28 mL every 4 ity of mL (0.083 00:00: (four) [place] %) 00 hours as Medical nebulizer needed for Bran ch solution Wheezing or Shortness of Breath. albuterol 2020-0 Yes [id number] 2.5mg Inhale 3 [facility] 2.5 mg /3 2-28 mL every 4 ity of mL (0.083 00:00: (four) [place] %) 00 hours as Medical nebulizer needed for Bran ch solution Wheezing or Shortness of Breath. albuterol 2020-0 Yes [id number] 2.5mg Inhale 3 [facility] 2.5 mg /3 2-28 mL every 4 ity of mL (0.083 00:00: (four) [place] %) 00 hours as Medical nebulizer needed for Bran ch solution Wheezing or Shortness of Breath. albuterol 2020-0 Yes [id number] 2.5mg Inhale 3 [facility] 2.5 mg /3 2-28 mL every 4 ity of mL (0.083 00:00: (four) [place] %) 00 hours as Medical nebulizer needed for Bran ch solution Wheezing or Shortness of Breath. albuterol 2020-0 Yes [id number] 2.5mg Inhale 3 [facility] 2.5 mg /3 2-28 mL every 4 ity of mL (0.083 00:00: (four) [place] %) 00 hours as Medical nebulizer needed for Bran ch solution Wheezing or Shortness of Breath. albuterol 2020-0 Yes [id number] 2.5mg Inhale 3 [facility] 2.5 mg /3 2-28 mL every 4 ity of mL (0.083 00:00: (four) [place] %) 00 hours as Medical nebulizer needed for Bran ch solution Wheezing or Shortness of Breath. albuterol 2020-0 Yes [id number] 2.5mg Inhale 3 [facility] 2.5 mg /3 2-28 mL every 4 ity of mL (0.083 00:00: (four) [place] %) 00 hours as Medical nebulizer needed for Bran ch solution Wheezing or Shortness of Breath. albuterol 2020-0 Yes [id number] 2.5mg Inhale 3 [facility] 2.5 mg /3 2-28 mL every 4 ity of mL (0.083 00:00: (four) [place] %) 00 hours as Medical nebulizer needed for Bran ch solution Wheezing or Shortness of Breath. azithromyci 2020-0 Yes [id number] 250mg Take 1 [facility] n 2-28 tablet by ity of (ZITHROMAX 00:00: mouth [place] Z-MANDO) 250 00 SEE-INSTRU Med ical mg tablet CTIONS. Branch Take 500 mg day 1, then 250 mg days 2 to 5. cefpodoxime 2020-0 Yes [id number] 200mg Take 1 [facility] 200 mg 2-28 tablet by ity of tablet 00:00: mouth 2 (two) Medical times [place] daily. predniSONE 2020-0 Yes [id number] 60mg Take 3 U nivers 20 mg 2-28 tablets by ity of tablet 00:00: mouth [place] 00 every Medical morning. Branch albuterol 2020-0 Yes [id number] 2.5mg Inhale 3 [facility] 2.5 mg /3 2-28 mL every 4 ity of mL (0.083 00:00: (four) [place] %) 00 hours as Medical nebulizer needed for Bran ch solution Wheezing or Shortness of Breath. azithromyci 2020-0 Yes [id number] 250mg Take 1 [facility] n 2-28 tablet by ity of (ZITHROMAX 00:00: mouth [place] Z-MANDO) 250 00 SEE-INSTRU Med ical mg tablet CTIONS. Branch Take 500 mg day 1, then 250 mg days 2 to 5. cefpodoxime 2020-0 Yes [id number] 200mg Take 1 [facility] 200 mg 2-28 tablet by ity of tablet 00:00: mouth 2 (two) Medical times [place] daily. predniSONE 2020-0 Yes [id number] 60mg Take 3 U nivers 20 mg 2-28 tablets by ity of tablet 00:00: mouth [place] 00 every Medical morning. Branch albuterol 2020-0 Yes [id number] 2.5mg Inhale 3 [facility] 2.5 mg /3 2-28 mL every 4 ity of mL (0.083 00:00: (four) [place] %) 00 hours as Medical nebulizer needed for Bran ch solution Wheezing or Shortness of Breath. azithromyci 2020-0 Yes [id number] 250mg Take 1 [facility] n 2-28 tablet by ity of (ZITHROMAX 00:00: mouth [place] Z-MANDO) 250 00 SEE-INSTRU Med ical mg tablet CTIONS. Branch Take 500 mg day 1, then 250 mg days 2 to 5. cefpodoxime 2020-0 Yes [id number] 200mg Take 1 [facility] 200 mg 2-28 tablet by ity of tablet 00:00: mouth 2 [place] (two) Medical times [place] daily. predniSONE 2020-0 Yes [id number] 60mg Take 3 U nivers 20 mg 2-28 tablets by ity of tablet 00:00: mouth [place] 00 every Medical morning. Branch albuterol 2020-0 Yes [id number] 2.5mg Inhale 3 [facility] 2.5 mg /3 2-28 mL every 4 ity of mL (0.083 00:00: (four) [place] %) 00 hours as Medical nebulizer needed for Bran ch solution Wheezing or Shortness of Breath. azithromyci 2020-0 Yes [id number] 250mg Take 1 [facility] n 2-28 tablet by ity of (ZITHROMAX 00:00: mouth [place] Z-MANDO) 250 00 SEE-INSTRU Med ical mg tablet CTIONS. Branch Take 500 mg day 1, then 250 mg days 2 to 5. cefpodoxime 2020-0 Yes [id number] 200mg Take 1 [facility] 200 mg 2-28 tablet by ity of tablet 00:00: mouth 2 [place] 00 (two) Medical times Branch daily. predniSONE 2020-0 Yes [id number] 60mg Take 3 U nivers 20 mg 2-28 tablets by ity of tablet 00:00: mouth [place] 00 every Medical morning. Branch albuterol 2020-0 Yes [id number] 2.5mg Inhale 3 [facility] 2.5 mg /3 2-28 mL every 4 ity of mL (0.083 00:00: (four) [place] %) 00 hours as Medical nebulizer needed for Bran ch solution Wheezing or Shortness of Breath. albuterol 2020-0 Yes [id number] 2.5mg Inhale 3 [facility] 2.5 mg /3 2-28 mL every 4 ity of mL (0.083 00:00: (four) [place] %) 00 hours as Medical nebulizer needed for Bran ch solution Wheezing or Shortness of Breath. azithromyci 2020-0 2020- No [id number] 250mg Take 1 [facility] n 2-28 03-24 tablet by ity of (ZITHROMAX 00:00: 00:00 mouth [place] Z-MANDO) 250 00 :00 SEE-INSTRU Med ical mg tablet CTIONS. Branch Take 500 mg day 1, then 250 mg days 2 to 5. cefpodoxime 2020-0 2020- No [id number] 200mg Take 1 [facility] 200 mg 2-28 03-24 tablet by ity of tablet 00:00: 00:00 mouth 2 [place] 00 :00 (two) Medical times Branch daily. predniSONE 2020-0 2020- No [id number] 60mg Take 3 [facility] 20 mg 2-28 03-24 tablets by ity of tablet 00:00: 00:00 mouth [place] 00 :00 every Medical morning. Branch aerosol 2020-0 Yes See Admin [facility] holding 2-[address] [facility] l aerosol 2020-0 Yes See Admin [facility] di holding 2-[address] chamber 00:00: [facility] spacer 00 l aerosol 2020-0 Yes See Admin [facility] di holding 2-[address] chamber 00:00: ns. [facility]osp[facility] spacer 00 l aerosol 2020-0 Yes See Admin [facility] di holding 2-[address] chamber 00:00: ns. [facility]osp[facility] spacer 00 l aerosol 2020-0 Yes See Admin [facility] di holding 2-[address] chamber 00:00: ns. [facility]osp[facility] spacer 00 l aerosol 2020-0 Yes See Admin [facility] di holding 2-[address] chamber 00:00: ns. [facility]osp[facility] spacer 00 l albuterol 2020-0 Yes [id number] 2{puff} Inhale 2 [facility] 90 2-22 Puffs ity of mcg/actuati 00:00: every 4 [place] as on inhaler 00 (four) Medical hours as Branch needed for Wheezing or Shortness of Breath. acetaminoph 2020-0 Yes [id number] 1/2 - 1 [facility] en-codeine 2-22 tab Every ity of 300-30 mg 00:00: 4hrs as [place] tablet 00 needed for Medical pain or Branch cough requiring narcotic inhalationa 2020-0 Yes [id number] Use as Univers l spacing 2-22 directed ity of device 00:00: [place] (OPTICHAMBE 00 Medical R [facility]) albuterol 2020-0 Yes [id number] 2{puff} Inhale 2 [facility] 90 2-22 Puffs ity of mcg/actuati 00:00: every 4 [place] as on inhaler 00 (four) Medical hours as Branch needed for Wheezing or Shortness of Breath. acetaminoph 2020-0 Yes [id number] 1/2 - 1 [facility] en-codeine 2-22 tab Every ity of 300-30 mg 00:00: 4hrs as [place] tablet 00 needed for Medical pain or Branch cough requiring narcotic inhalationa 2019-0 Yes [id number] Use as [facility] l spacing 2-22 directed ity of device 00:00: [place] ([facility] [place]) albuterol 2020-0 Yes [id number] 2{puff} Inhale 2 [facility] 90 2-22 Puffs ity of mcg/actuati 00:00: every 4 [place] as on inhaler 00 (four) Medical hours as Branch needed for Wheezing or Shortness of Breath. acetaminoph 2020-0 Yes [id number] 1/2 - 1 [facility] en-codeine 2-22 tab Every ity of 300-30 mg 00:00: 4hrs as [place] tablet 00 needed for Medical pain or Branch cough requiring narcotic inhalationa 2020-0 Yes [id number] Use as Univers l spacing 2-22 directed ity of device 00:00: [place] ([address]) albuterol 2020-0 Yes [id number] 2{puff} Inhale 2 [facility] 90 2-22 Puffs ity of mcg/actuati 00:00: every 4 [place] as on inhaler 00 (four) Medical hours as Branch needed for Wheezing or Shortness of Breath. acetaminoph 2020-0 Yes [id number] 2 - 1 [facility] en-codeine 2-22 tab Every ity of 300-30 mg 00:00: 4hrs as [place] tablet 00 needed for Medical pain or Branch cough requiring narcotic inhalationa 2020-0 Yes [id number] Use as [facility] l spacing 2-22 directed ity of device 00:00: [place] ([facility] [place]) albuterol 2020-0 Yes [id number] 2{puff} Inhale 2 [facility] 90 2-22 Puffs ity of mcg/actuati 00:00: every 4 [place] as on inhaler 00 (four) Medical hours as Branch needed for Wheezing or Shortness of Breath. acetaminoph 2020-0 Yes [id number] 1/2 - 1 [facility] en-codeine 2-22 tab Every ity of 300-30 mg 00:00: 4hrs as [place] tablet 00 needed for Medical pain or Branch cough requiring narcotic inhalationa 2020-0 Yes [id number] Use as Univers l spacing 2-22 directed ity of device 00:00: [place] ([address]) albuterol 2020-0 Yes [id number] 2{puff} Inhale 2 [facility] 90 2-22 Puffs ity of mcg/actuati 00:00: every 4 [place] as on inhaler 00 (four) Medical hours as Branch needed for Wheezing or Shortness of Breath. albuterol 2020-0 Yes [id number] 2{puff} Inhale 2 [facility] 90 2-22 Puffs ity of mcg/actuati 00:00: every 4 [place] as on inhaler 00 (four) Medical hours as Branch needed for Wheezing or Shortness of Breath. acetaminoph 2020-0 Yes [id number] 2 - 1 [facility] en-codeine 2-22 tab Every ity of 300-30 mg 00:00: 4hrs as [place] tablet 00 needed for Medical pain or Branch cough requiring narcotic inhalationa 2020-0 Yes [id number] Use as [facility] spacing 2-22 directed ity of device 00:00: [place] [facility] [place] inhalationa 2020-0 Yes [id number] Use as [facility] l spacing 2-22 directed ity of device 00:00: [place] ([facility] [place] albuterol 2020-0 Yes [id number] 2{puff} Inhale 2 [facility] 90 2-22 Puffs ity of mcg/actuati 00:00: every 4 [place] as on inhaler 00 (four) Medical hours as Branch needed for Wheezing or Shortness of Breath. acetaminoph 2020-0 Yes [id number] 2 - 1 [facility] en-codeine 2-22 tab Every ity of 300-30 mg 00:00: 4hrs as [place] tablet 00 needed for Medical pain or Branch cough requiring narcotic inhalationa 2020-0 Yes [id number] Use as [facility] l spacing 2-22 directed ity of device 00:00: [place] ([facility] [place] albuterol 2020-0 Yes [id number] 2{puff} Inhale 2 [facility] 90 2-22 Puffs ity of mcg/actuati 00:00: every 4 [place] as on inhaler 00 (four) Medical hours as Branch needed for Wheezing or Shortness of Breath. acetaminoph 2020-0 Yes [id number] 2 - 1 [facility] en-codeine 2-22 tab Every ity of 300-30 mg 00:00: 4hrs as [place] tablet 00 needed for Medical pain or Branch cough requiring narcotic inhalationa 2019-0 Yes [id number] Use as [facility] l spacing 2-22 directed ity of device 00:00: [place] ([facility] [place] albuterol 2020-0 Yes [id number] 2{puff} Inhale 2 [facility] 90 2-22 Puffs ity of mcg/actuati 00:00: every 4 [place] as on inhaler 00 (four) Medical hours as Branch needed for Wheezing or Shortness of Breath. acetaminoph 2020-0 Yes [id number] 1/2 - 1 [facility] en-codeine 2-22 tab Every ity of 300-30 mg 00:00: 4hrs as [place] tablet 00 needed for Medical pain or Branch cough requiring narcotic inhalationa 2020-0 Yes [id number] Use as [facility] l spacing 2-22 directed ity of device 00:00: [place] ([address]) albuterol 2020-0 Yes [id number] 2{puff} Inhale 2 [facility] 90 2-22 Puffs ity of mcg/actuati 00:00: every 4 [place] as on inhaler 00 (four) Medical hours as Branch needed for Wheezing or Shortness of Breath. acetaminoph 2020-0 Yes [id number] 2 - 1 [facility] en-codeine 2-22 tab Every ity of 300-30 mg 00:00: 4hrs as [place] tablet 00 needed for Medical pain or Branch cough requiring narcotic inhalationa 2020-0 Yes [id number] Use as [facility] l spacing 2-22 directed ity of device 00:00: [place] ([address]) albuterol 2020-0 Yes [id number] 2{puff} Inhale 2 [facility] 90 2-22 Puffs ity of mcg/actuati 00:00: every 4 [facility] as on inhaler 00 (four) Medical hours as Branch needed for Wheezing or Shortness of Breath. acetaminoph 2020-0 Yes [id number] 12 - 1 [facility] en-codeine 2-22 tab Every ity of 300-30 mg 00:00: 4hrs as [place] tablet 00 needed for Medical pain or Branch cough requiring narcotic inhalationa 2020-0 Yes [id number] Use as [facility] l spacing 2-22 directed ity of device 00:00: [place] ([address]) albuterol 2020-0 Yes [id number] 2{puff} Inhale 2 [facility] 90 2-22 Puffs ity of mcg/actuati 00:00: every 4 [facility] as on inhaler 00 (four) Medical hours as Branch needed for Wheezing or Shortness of Breath. acetaminoph 2020-0 Yes [id number] 2 - 1 [facility] en-codeine 2-22 tab Every ity of 300-30 mg 00:00: 4hrs as [place] tablet 00 needed for Medical pain or Branch cough requiring narcotic inhalationa 2020-0 Yes [id number] Use as [facility] l spacing 2-22 directed ity of device 00:00: [place] ([facility] 00 [facility] [place]) albuterol 2020-0 Yes [id number] 2{puff} Inhale 2 [facility] 90 2-22 Puffs ity of mcg/actuati 00:00: every 4 [place] as on inhaler 00 (four) Medical hours as Branch needed for Wheezing or Shortness of Breath. acetaminoph 2020-0 Yes [id number] 2 - 1 [facility] en-codeine 2-22 tab Every ity of 300-30 mg 00:00: 4hrs as [place] tablet 00 needed for Medical pain or Branch cough requiring narcotic inhalationa 2020-0 Yes [id number] Use as [facility] l spacing 2-22 directed ity of device 00:00: [place] ([facility] 00 [facility] [place]) albuterol 2020-0 Yes [id number] 2{puff} Inhale 2 [facility] 90 2-22 Puffs ity of mcg/actuati 00:00: every 4 [place] as on inhaler 00 (four) Medical hours as Branch needed for Wheezing or Shortness of Breath. acetaminoph 2020-0 Yes [id number] 2 - 1 [facility] en-codeine 2-22 tab Every ity of 300-30 mg 00:00: 4hrs as [place] tablet 00 needed for Medical pain or Branch cough requiring narcotic inhalationa 2020-0 Yes [id number] Use as [facility] l spacing 2-22 directed ity of device 00:00: [place] ([facility] 00 [facility] [place]) albuterol 2020-0 Yes [id number] 2{puff} Inhale 2 [facility] 90 2-22 Puffs ity of mcg/actuati 00:00: every 4 [place] as on inhaler 00 (four) Medical hours as Branch needed for Wheezing or Shortness of Breath. acetaminoph 2020-0 Yes [id number] 2 - 1 [facility] en-codeine 2-22 tab Every ity of 300-30 mg 00:00: 4hrs as [place] tablet 00 needed for Medical pain or Branch cough requiring narcotic inhalationa 2020-0 Yes [id number] Use as [facility] l spacing 2-22 directed ity of device 00:00: [place] ([facility] [place]) albuterol 2020-0 Yes [id number] 2{puff} Inhale 2 [facility] 90 2-22 Puffs ity of mcg/actuati 00:00: every 4 [place] as on inhaler 00 (four) Medical hours as Branch needed for Wheezing or Shortness of Breath. acetaminoph 2020-0 Yes [id number] 2 - 1 [facility] en-codeine 2-22 tab Every ity of 300-30 mg 00:00: 4hrs as [place] tablet 00 needed for Medical pain or Branch cough requiring narcotic inhalationa 2020-0 Yes [id number] Use as [facility] l spacing 2-22 directed ity of device 00:00: [place] ([facility] [place]) albuterol 2020-0 Yes [id number] 2{puff} Inhale 2 [facility] 90 2-22 Puffs ity of mcg/actuati 00:00: every 4 [place] as on inhaler 00 (four) Medical hours as Branch needed for Wheezing or Shortness of Breath. acetaminoph 2020-0 Yes [id number] 2 - 1 [facility] en-codeine 2-22 tab Every ity of 300-30 mg 00:00: 4hrs as [place] tablet 00 needed for Medical pain or Branch cough requiring narcotic inhalationa 2020-0 Yes [id number] Use as [facility] l spacing 2-22 directed ity of device 00:00: [place] ([facility] [place]) albuterol 2020-0 Yes [id number] 2{puff} Inhale 2 [facility] 90 2-22 Puffs ity of mcg/actuati 00:00: every 4 [place] as on inhaler 00 (four) Medical hours as Branch needed for Wheezing or Shortness of Breath. acetaminoph 2020-0 Yes [id number] 2 - 1 [facility] en-codeine 2-22 tab Every ity of 300-30 mg 00:00: 4hrs as [place] tablet 00 needed for Medical pain or Branch cough requiring narcotic inhalationa 2020-0 Yes [id number] Use as [facility] l spacing 2-22 directed ity of device 00:00: [place] ([facility] [place]) albuterol 2020-0 Yes [id number] 2{puff} Inhale 2 [facility] 90 2-22 Puffs ity of mcg/actuati 00:00: every 4 [place] as on inhaler 00 (four) Medical hours as Branch needed for Wheezing or Shortness of Breath. acetaminoph 2020-0 Yes [id number] 1/2 - 1 [facility] en-codeine 2-22 tab Every ity of 300-30 mg 00:00: 4hrs as [place] tablet 00 needed for Medical pain or Branch cough requiring narcotic inhalationa 2020-0 Yes [id number] Use as [facility] l spacing 2-22 directed ity of device 00:00: [place] ([address]) albuterol 2020-0 Yes [id number] 2{puff} Inhale 2 [facility] 90 2-22 Puffs ity of mcg/actuati 00:00: every 4 [place] as on inhaler 00 (four) Medical hours as Branch needed for Wheezing or Shortness of Breath. acetaminoph 2020-0 Yes [id number] 2 - 1 [facility] en-codeine 2-22 tab Every ity of 300-30 mg 00:00: 4hrs as [place] tablet 00 needed for Medical pain or Branch cough requiring narcotic inhalationa 2020-0 Yes [id number] Use as [facility] l spacing 2-22 directed ity of device 00:00: [place] ([address]) albuterol 2020-0 Yes [id number] 2{puff} Inhale 2 [facility] 90 2-22 Puffs ity of mcg/actuati 00:00: every 4 [place] as on inhaler 00 (four) Medical hours as Branch needed for Wheezing or Shortness of Breath. acetaminoph 2020-0 Yes [id number] 2 - 1 [facility] en-codeine 2-22 tab Every ity of 300-30 mg 00:00: 4hrs as [place] tablet 00 needed for Medical pain or Branch cough requiring narcotic inhalationa 2020-0 Yes [id number] Use as [facility] l spacing 2-22 directed ity of device 00:00: [place] ([address]) albuterol 2020-0 Yes [id number] 2{puff} Inhale 2 [facility] 90 2-22 Puffs ity of mcg/actuati 00:00: every 4 [place] as on inhaler 00 (four) Medical hours as Branch needed for Wheezing or Shortness of Breath. acetaminoph 2020-0 Yes [id number] 1/2 - 1 [facility] en-codeine 2-22 tab Every ity of 300-30 mg 00:00: 4hrs as [place] tablet 00 needed for Medical pain or Branch cough requiring narcotic inhalationa 2020-0 Yes [id number] Use as [facility] l spacing 2-22 directed ity of device 00:00: [place] ([facility] [place] albuterol 2020-0 Yes [id number] 2{puff} Inhale 2 [facility] 90 2-22 Puffs ity of mcg/actuati 00:00: every 4 [place] as on inhaler 00 (four) Medical hours as Branch needed for Wheezing or Shortness of Breath. acetaminoph 2020-0 Yes [id number] 2 - 1 [facility] en-codeine 2-22 tab Every ity of 300-30 mg 00:00: 4hrs as [place] tablet 00 needed for Medical pain or Branch cough requiring narcotic inhalationa 2020-0 Yes [id number] Use as [facility] l spacing 2-22 directed ity of device 00:00: [place] [facility] [place] albuterol 2020-0 Yes [id number] 2{puff} Inhale 2 [facility] 90 2-22 Puffs ity of mcg/actuati 00:00: every 4 [place] as on inhaler 00 (four) Medical hours as Branch needed for Wheezing or Shortness of Breath. acetaminoph 2020-0 Yes [id number] 2 - 1 [facility] en-codeine 2-22 tab Every ity of 300-30 mg 00:00: 4hrs as [place] tablet 00 needed for Medical pain or Branch cough requiring narcotic inhalationa 2020-0 Yes [id number] Use as [facility] l spacing 2-22 directed ity of device 00:00: [place] ([facility] [place] [facility] [place]) albuterol 2020-0 Yes [id number] 2{puff} Inhale 2 [facility] 90 2-22 Puffs ity of mcg/actuati 00:00: every 4 [place] as on inhaler 00 (four) Medical hours as Branch needed for Wheezing or Shortness of Breath. acetaminoph 2020-0 Yes [id number] 1/2 - 1 [facility] en-codeine 2-22 tab Every ity of 300-30 mg 00:00: 4hrs as [place] tablet 00 needed for Medical pain or Branch cough requiring narcotic inhalationa 2020-0 Yes [id number] Use as [facility] l spacing 2-22 directed ity of device 00:00: [place] ([address]) albuterol 2020-0 Yes [id number] 2{puff} Inhale 2 [facility] 90 2-22 Puffs ity of mcg/actuati 00:00: every 4 [place] as on inhaler 00 (four) Medical hours as Branch needed for Wheezing or Shortness of Breath. inhalationa 2020-0 Yes [id number] Use as [facility] l spacing 2-22 directed ity of device 00:00: [place] ([address]) albuterol 2020-0 Yes [id number] 2{puff} Inhale 2 [facility] 90 2-22 Puffs ity of mcg/actuati 00:00: every 4 [place] as on inhaler 00 (four) Medical hours as Branch needed for Wheezing or Shortness of Breath. inhalationa 2020-0 Yes [id number] Use as [facility] l spacing 2-22 directed ity of device 00:00: [place] ([address]) albuterol 2020-0 Yes [id number] 2{puff} Inhale 2 [facility] 90 2-22 Puffs ity of mcg/actuati 00:00: every 4 [facility] as on inhaler 00 (four) Medical hours as Branch needed for Wheezing or Shortness of Breath. inhalationa 2020-0 Yes [id number] Use as [facility] l spacing 2-22 directed ity of device 00:00: [place] ([address]) albuterol 2020-0 Yes [id number] 2{puff} Inhale 2 [facility] 90 2-22 Puffs ity of mcg/actuati 00:00: every 4 [facility] as on inhaler 00 (four) Medical hours as Branch needed for Wheezing or Shortness of Breath. inhalationa 2020-0 Yes [id number] Use as [facility] l spacing 2-22 directed ity of device 00:00: [place] ([address]) albuterol 2020-0 Yes [id number] 2{puff} Inhale 2 [facility] 90 2-22 Puffs ity of mcg/actuati 00:00: every 4 [facility] as on inhaler 00 (four) Medical hours as Branch needed for Wheezing or Shortness of Breath. inhalationa 2020-0 Yes [id number] Use as [facility] l spacing 2-22 directed ity of device 00:00: [place] ([address]) albuterol 2020-0 Yes [id number] 2{puff} Inhale 2 [facility] 90 2-22 Puffs ity of mcg/actuati 00:00: every 4 [facility] as on inhaler 00 (four) Medical hours as Branch needed for Wheezing or Shortness of Breath. inhalationa 2020-0 Yes [id number] Use as [facility] l spacing 2-22 directed ity of device 00:00: [place] ([address]) albuterol 2020-0 Yes [id number] 2{puff} Inhale 2 [facility] 90 2-22 Puffs ity of mcg/actuati 00:00: every 4 [facility] as on inhaler 00 (four) Medical hours as Branch needed for Wheezing or Shortness of Breath. inhalationa 2020-0 Yes [id number] Use as [facility] l spacing 2-22 directed ity of device 00:00: [place] ([address]) albuterol 2020-0 Yes [id number] 2{puff} Inhale 2 [facility] 90 2-22 Puffs ity of mcg/actuati 00:00: every 4 [place] as on inhaler 00 (four) Medical hours as Branch needed for Wheezing or Shortness of Breath. inhalationa 2020-0 Yes [id number] Use as [facility] l spacing 2-22 directed ity of device 00:00: [place] ([address]) albuterol 2020-0 Yes [id number] 2{puff} Inhale 2 [facility] 90 2-22 Puffs ity of mcg/actuati 00:00: every 4 [facility] as on inhaler 00 (four) Medical hours as Branch needed for Wheezing or Shortness of Breath. inhalationa 2020-0 Yes [id number] Use as [facility] l spacing 2-22 directed ity of device 00:00: [place] ([address]) albuterol 2020-0 Yes [id number] 2{puff} Inhale 2 [facility] 90 2-22 Puffs ity of mcg/actuati 00:00: every 4 [place] as on inhaler 00 (four) Medical hours as Branch needed for Wheezing or Shortness of Breath. inhalationa 2020-0 Yes [id number] Use as [facility] l spacing 2-22 directed ity of device 00:00: [place] ([address]) albuterol 2020-0 Yes [id number] 2{puff} Inhale 2 [facility] 90 2-22 Puffs ity of mcg/actuati 00:00: every 4 [place] as on inhaler 00 (four) Medical hours as Branch needed for Wheezing or Shortness of Breath. inhalationa 2020-0 Yes [id number] Use as [facility] l spacing 2-22 directed ity of device 00:00: [place] ([address]) albuterol 2020-0 Yes [id number] 2{puff} Inhale 2 [facility] 90 2-22 Puffs ity of mcg/actuati 00:00: every 4 [place] as on inhaler 00 (four) Medical hours as Branch needed for Wheezing or Shortness of Breath. inhalationa 2020-0 Yes [id number] Use as [facility] l spacing 2-22 directed ity of device 00:00: [place] ([address]) albuterol 2020-0 Yes [id number] 2{puff} Inhale 2 [facility] 90 2-22 Puffs ity of mcg/actuati 00:00: every 4 [place] as on inhaler 00 (four) Medical hours as Branch needed for Wheezing or Shortness of Breath. inhalationa 2020-0 Yes [id number] Use as [facility] l spacing 2-22 directed ity of device 00:00: [place] ([address]) albuterol 2020-0 Yes [id number] 2{puff} Inhale 2 [facility] 90 2-22 Puffs ity of mcg/actuati 00:00: every 4 [place] as on inhaler 00 (four) Medical hours as Branch needed for Wheezing or Shortness of Breath. inhalationa 2020-0 Yes [id number] Use as [facility] l spacing 2-22 directed ity of device 00:00: [place] ([address]) albuterol 2020-0 Yes [id number] 2{puff} Inhale 2 [facility] 90 2-22 Puffs ity of mcg/actuati 00:00: every 4 [place] as on inhaler 00 (four) Medical hours as Branch needed for Wheezing or Shortness of Breath. inhalationa 2020-0 Yes [id number] Use as [facility] l spacing 2-22 directed ity of device 00:00: [place] ([address]) albuterol 2020-0 Yes [id number] 2{puff} Inhale 2 [facility] 90 2-22 Puffs ity of mcg/actuati 00:00: every 4 [place] as on inhaler 00 (four) Medical hours as Branch needed for Wheezing or Shortness of Breath. inhalationa 2020-0 Yes [id number] Use as [facility] l spacing 2-22 directed ity of device 00:00: [place] ([address]) albuterol 2020-0 Yes [id number] 2{puff} Inhale 2 [facility] 90 2-22 Puffs ity of mcg/actuati 00:00: every 4 [place] as on inhaler 00 (four) Medical hours as Branch needed for Wheezing or Shortness of Breath. inhalationa 2020-0 Yes [id number] Use as [facility] l spacing 2-22 directed ity of device 00:00: [place] ([address]) albuterol 2020-0 Yes [id number] 2{puff} Inhale 2 [facility] 90 2-22 Puffs ity of mcg/actuati 00:00: every 4 [place] as on inhaler 00 (four) Medical hours as Branch needed for Wheezing or Shortness of Breath. inhalationa 2020-0 Yes [id number] Use as [facility] l spacing 2-22 directed ity of device 00:00: [place] ([address]) albuterol 2020-0 Yes [id number] 2{puff} Inhale 2 [facility] 90 2-22 Puffs ity of mcg/actuati 00:00: every 4 [place] as on inhaler 00 (four) Medical hours as Branch needed for Wheezing or Shortness of Breath. inhalationa 2020-0 Yes [id number] Use as [facility] l spacing 2-22 directed ity of device 00:00: [place] ([address]) albuterol 2020-0 Yes [id number] 2{puff} Inhale 2 [facility] 90 2-22 Puffs ity of mcg/actuati 00:00: every 4 [place] as on inhaler 00 (four) Medical hours as Branch needed for Wheezing or Shortness of Breath. inhalationa 2020-0 Yes [id number] Use as [facility] l spacing 2-22 directed ity of device 00:00: [place] ([address]) albuterol 2020-0 Yes [id number] 2{puff} Inhale 2 [facility] 90 2-22 Puffs ity of mcg/actuati 00:00: every 4 [place] as on inhaler 00 (four) Medical hours as Branch needed for Wheezing or Shortness of Breath. inhalationa 2020-0 Yes [id number] Use as [facility] l spacing 2-22 directed ity of device 00:00: [place] ([address]) albuterol 2020-0 Yes [id number] 2{puff} Inhale 2 [facility] 90 2-22 Puffs ity of mcg/actuati 00:00: every 4 [place] as on inhaler 00 (four) Medical hours as Branch needed for Wheezing or Shortness of Breath. inhalationa 2020-0 Yes [id number] Use as [facility] l spacing 2-22 directed ity of device 00:00: [place] ([address]) albuterol 2020-0 Yes [id number] 2{puff} Inhale 2 [facility] 90 2-22 Puffs ity of mcg/actuati 00:00: every 4 [place] as on inhaler 00 (four) Medical hours as Branch needed for Wheezing or Shortness of Breath. inhalationa 2020-0 Yes [id number] Use as [facility] l spacing 2-22 directed ity of device 00:00: [place] ([address]) albuterol 2020-0 Yes [id number] 2{puff} Inhale 2 [facility] 90 2-22 Puffs ity of mcg/actuati 00:00: every 4 [place] as on inhaler 00 (four) Medical hours as Branch needed for Wheezing or Shortness of Breath. inhalationa 2020-0 Yes [id number] Use as [facility] l spacing 2-22 directed ity of device 00:00: [place] ([address]) albuterol 2020-0 Yes [id number] 2{puff} Inhale 2 [facility] 90 2-22 Puffs ity of mcg/actuati 00:00: every 4 [place] as on inhaler 00 (four) Medical hours as Branch needed for Wheezing or Shortness of Breath. inhalationa 2020-0 Yes [id number] Use as [facility] l spacing 2-22 directed ity of device 00:00: [place] ([address]) albuterol 2020-0 Yes [id number] 2{puff} Inhale 2 [facility] 90 2-22 Puffs ity of mcg/actuati 00:00: every 4 [place] as on inhaler 00 (four) Medical hours as Branch needed for Wheezing or Shortness of Breath. inhalationa 2020-0 Yes [id number] Use as [facility] l spacing 2-22 directed ity of device 00:00: [place] ([address]) albuterol 2020-0 Yes [id number] 2{puff} Inhale 2 [facility] 90 2-22 Puffs ity of mcg/actuati 00:00: every 4 [place] as on inhaler 00 (four) Medical hours as Branch needed for Wheezing or Shortness of Breath. inhalationa 2020-0 Yes [id number] Use as [facility] l spacing 2-22 directed ity of device 00:00: [place] ([address]) albuterol 2020-0 Yes [id number] 2{puff} Inhale 2 [facility] 90 2-22 Puffs ity of mcg/actuati 00:00: every 4 [place] as on inhaler 00 (four) Medical hours as Branch needed for Wheezing or Shortness of Breath. inhalationa 2020-0 Yes [id number] Use as [facility] l spacing 2-22 directed ity of device 00:00: [place] ([address]) albuterol 2020-0 Yes [id number] 2{puff} Inhale 2 [facility] 90 2-22 Puffs ity of mcg/actuati 00:00: every 4 [place] as on inhaler 00 (four) Medical hours as Branch needed for Wheezing or Shortness of Breath. inhalationa 2020-0 Yes [id number] Use as [facility] l spacing 2-22 directed ity of device 00:00: [place] ([address]) albuterol 2020-0 Yes [id number] 2{puff} Inhale 2 [facility] 90 2-22 Puffs ity of mcg/actuati 00:00: every 4 [place] as on inhaler 00 (four) Medical hours as Branch needed for Wheezing or Shortness of Breath. inhalationa 2020-0 Yes [id number] Use as [facility] l spacing 2-22 directed ity of device 00:00: [place] ([address]) albuterol 2020-0 Yes [id number] 2{puff} Inhale 2 [facility] 90 2-22 Puffs ity of mcg/actuati 00:00: every 4 [place] as on inhaler 00 (four) Medical hours as Branch needed for Wheezing or Shortness of Breath. inhalationa 2020-0 Yes [id number] Use as [facility] l spacing 2-22 directed ity of device 00:00: [place] ([address]) albuterol 2020-0 Yes [id number] 2{puff} Inhale 2 [facility] 90 2-22 Puffs ity of mcg/actuati 00:00: every 4 [place] as on inhaler 00 (four) Medical hours as Branch needed for Wheezing or Shortness of Breath. inhalationa 2020-0 Yes [id number] Use as [facility] l spacing 2-22 directed ity of device 00:00: [place] ([address]) albuterol 2020-0 Yes [id number] 2{puff} Inhale 2 [facility] 90 2-22 Puffs ity of mcg/actuati 00:00: every 4 [place] as on inhaler 00 (four) Medical hours as Branch needed for Wheezing or Shortness of Breath. inhalationa 2020-0 Yes [id number] Use as [facility] l spacing 2-22 directed ity of device 00:00: [place] ([address]) albuterol 2020-0 Yes [id number] 2{puff} Inhale 2 [facility] 90 2-22 Puffs ity of mcg/actuati 00:00: every 4 [place] as on inhaler 00 (four) Medical hours as Branch needed for Wheezing or Shortness of Breath. inhalationa 2020-0 Yes [id number] Use as [facility] l spacing 2-22 directed ity of device 00:00: [place] ([address]) albuterol 2020-0 Yes [id number] 2{puff} Inhale 2 [facility] 90 2-22 Puffs ity of mcg/actuati 00:00: every 4 [place] as on inhaler 00 (four) Medical hours as Branch needed for Wheezing or Shortness of Breath. inhalationa 2020-0 Yes [id number] Use as [facility] l spacing 2-22 directed ity of device 00:00: [place] ([address]) albuterol 2020-0 Yes [id number] 2{puff} Inhale 2 [facility] 90 2-22 Puffs ity of mcg/actuati 00:00: every 4 [place] as on inhaler 00 (four) Medical hours as Branch needed for Wheezing or Shortness of Breath. inhalationa 2020-0 Yes [id number] Use as [facility] l spacing 2-22 directed ity of device 00:00: [place] ([address]) albuterol 2020-0 Yes [id number] 2{puff} Inhale 2 [facility] 90 2-22 Puffs ity of mcg/actuati 00:00: every 4 [place] as on inhaler 00 (four) Medical hours as Branch needed for Wheezing or Shortness of Breath. inhalationa 2020-0 Yes [id number] Use as [facility] l spacing 2-22 directed ity of device 00:00: [place] ([address]) albuterol 2020-0 Yes [id number] 2{puff} Inhale 2 [facility] 90 2-22 Puffs ity of mcg/actuati 00:00: every 4 [place] as on inhaler 00 (four) Medical hours as Branch needed for Wheezing or Shortness of Breath. inhalationa 2020-0 Yes [id number] Use as [facility] l spacing 2-22 directed ity of device 00:00: [place] ([address]) albuterol 2020-0 Yes [id number] 2{puff} Inhale 2 [facility] 90 2-22 Puffs ity of mcg/actuati 00:00: every 4 [place] as on inhaler 00 (four) Medical hours as Branch needed for Wheezing or Shortness of Breath. inhalationa 2020-0 Yes [id number] Use as [facility] l spacing 2-22 directed ity of device 00:00: [place] ([address]) albuterol 2020-0 Yes [id number] 2{puff} Inhale 2 [facility] 90 2-22 Puffs ity of mcg/actuati 00:00: every 4 [place] as on inhaler 00 (four) Medical hours as Branch needed for Wheezing or Shortness of Breath. inhalationa 2020-0 Yes [id number] Use as [facility] l spacing 2-22 directed ity of device 00:00: [place] ([address]) albuterol 2020-0 Yes [id number] 2{puff} Inhale 2 [facility] 90 2-22 Puffs ity of mcg/actuati 00:00: every 4 [place] as on inhaler 00 (four) Medical hours as Branch needed for Wheezing or Shortness of Breath. inhalationa 2020-0 Yes [id number] Use as [facility] spacing 2-22 directed ity of device 00:00: [place] ([address]) albuterol 2020-0 Yes [id number] 2{puff} Inhale 2 [facility] 90 2-22 Puffs ity of mcg/actuati 00:00: every 4 [place] as on inhaler 00 (four) Medical hours as Branch needed for Wheezing or Shortness of Breath. inhalationa 2020-0 Yes [id number] Use as [facility] l spacing 2-22 directed ity of device 00:00: [place] ([address]) albuterol 2020-0 Yes [id number] 2{puff} Inhale 2 [facility] 90 2-22 Puffs ity of mcg/actuati 00:00: every 4 [place] [facility] on inhaler 00 (four) Medical hours as Branch needed for Wheezing or Shortness of Breath. inhalationa 2020-0 Yes [id number] Use as [facility] l spacing 2-22 directed ity of device 00:00: [place] ([address]) albuterol 2020-0 Yes [id number] 2{puff} Inhale 2 [facility] 90 2-22 Puffs ity of mcg/actuati 00:00: every 4 [place] [facility] on inhaler 00 (four) Medical hours as Branch needed for Wheezing or Shortness of Breath. inhalationa 2020-0 Yes [id number] Use as [facility] l spacing 2-22 directed ity of device 00:00: [place] ([address]) albuterol 2020-0 Yes [id number] 2{puff} Inhale 2 [facility] 90 2-22 Puffs ity of mcg/actuati 00:00: every 4 [place] [facility] on inhaler 00 (four) Medical hours as Branch needed for Wheezing or Shortness of Breath. inhalationa 2020-0 Yes [id number] Use as [facility] l spacing 2-22 directed ity of device 00:00: [place] ([address]) albuterol 2020-0 Yes [id number] 2{puff} Inhale 2 [facility] 90 2-22 Puffs ity of mcg/actuati 00:00: every 4 [place] [facility] on inhaler 00 (four) Medical hours as Branch needed for Wheezing or Shortness of Breath. inhalationa 2020-0 Yes [id number] Use as [facility] l spacing 2-22 directed ity of device 00:00: [place] ([address]) albuterol 2020-0 Yes [id number] 2{puff} Inhale 2 [facility] 90 2-22 Puffs ity of mcg/actuati 00:00: every 4 [place] [facility] on inhaler 00 (four) Medical hours as Branch needed for Wheezing or Shortness of Breath. inhalationa 2020-0 Yes [id number] Use as [facility] l spacing 2-22 directed ity of device 00:00: [place] ([address]) albuterol 2020-0 Yes [id number] 2{puff} Inhale 2 [facility] 90 2-22 Puffs ity of mcg/actuati 00:00: every 4 [place] [facility] on inhaler 00 (four) Medical hours as Branch needed for Wheezing or Shortness of Breath. inhalationa 2020-0 Yes [id number] Use as [facility] l spacing 2-22 directed ity of device 00:00: [place] ([address]) albuterol 2020-0 Yes [id number] 2{puff} Inhale 2 [facility] 90 2-22 Puffs ity of mcg/actuati 00:00: every 4 [place] [facility] on inhaler 00 (four) Medical hours as Branch needed for Wheezing or Shortness of Breath. inhalationa 2020-0 Yes [id number] Use as [facility] l spacing 2-22 directed ity of device 00:00: [place] ([address]) albuterol 2020-0 Yes [id number] 2{puff} Inhale 2 [facility] 90 2-22 Puffs ity of mcg/actuati 00:00: every 4 [place] [facility] on inhaler 00 (four) Medical hours as Branch needed for Wheezing or Shortness of Breath. inhalationa 2020-0 Yes [id number] Use as [facility] l spacing 2-22 directed ity of device 00:00: [place] ([address]) albuterol 2020-0 Yes [id number] 2{puff} Inhale 2 [facility] 90 2-22 Puffs ity of mcg/actuati 00:00: every 4 [place] [facility] on inhaler 00 (four) Medical hours as Branch needed for Wheezing or Shortness of Breath. inhalationa 2020-0 Yes [id number] Use as [facility] l spacing 2-22 directed ity of device 00:00: [place] ([address]) albuterol 2020-0 Yes [id number] 2{puff} Inhale 2 [facility] 90 2-22 Puffs ity of mcg/actuati 00:00: every 4 [place] [facility] on inhaler 00 (four) Medical hours as Branch needed for Wheezing or Shortness of Breath. inhalationa 2020-0 Yes [id number] Use as [facility] l spacing 2-22 directed ity of device 00:00: [place] ([address]) albuterol 2020-0 Yes [id number] 2{puff} Inhale 2 [facility] 90 2-22 Puffs ity of mcg/actuati 00:00: every 4 [place] [facility] on inhaler 00 (four) Medical hours as Branch needed for Wheezing or Shortness of Breath. inhalationa 2020-0 Yes [id number] Use as [facility] l spacing 2-22 directed ity of device 00:00: [place] ([address]) albuterol 2020-0 Yes [id number] 2{puff} Inhale 2 [facility] 90 2-22 Puffs ity of mcg/actuati 00:00: every 4 [place] [facility] on inhaler 00 (four) Medical hours as Branch needed for Wheezing or Shortness of Breath. inhalationa 2020-0 Yes [id number] Use as [facility] l spacing 2-22 directed ity of device 00:00: [place] ([address]) albuterol 2020-0 Yes [id number] 2{puff} Inhale 2 [facility] 90 2-22 Puffs ity of mcg/actuati 00:00: every 4 [place] [facility] on inhaler 00 (four) Medical hours as Branch needed for Wheezing or Shortness of Breath. inhalationa 2020-0 Yes [id number] Use as [facility] l spacing 2-22 directed ity of device 00:00: [place] ([address]) albuterol 2020-0 Yes [id number] 2{puff} Inhale 2 [facility] 90 2-22 Puffs ity of mcg/actuati 00:00: every 4 [place] on inhaler 00 (four) Medical hours as Branch needed for Wheezing or Shortness of Breath. inhalationa 2020-0 Yes [id number] Use as [facility] l spacing 2-22 directed ity of device 00:00: [place] ([address]) albuterol 2020-0 Yes [id number] 2{puff} Inhale 2 [facility] 90 2-22 Puffs ity of mcg/actuati 00:00: every 4 [place] [facility] on inhaler 00 (four) Medical hours as Branch needed for Wheezing or Shortness of Breath. inhalationa 2020-0 Yes [id number] Use as [facility] l spacing 2-22 directed ity of device 00:00: [place] ([address]) albuterol 2020-0 Yes [id number] 2{puff} Inhale 2 [facility] 90 2-22 Puffs ity of mcg/actuati 00:00: every 4 [place] [facility] on inhaler 00 (four) Medical hours as Branch needed for Wheezing or Shortness of Breath. inhalationa 2020-0 Yes [id number] Use as [facility] l spacing 2-22 directed ity of device 00:00: [place] ([address]) albuterol 2020-0 Yes [id number] 2{puff} Inhale 2 [facility] 90 2-22 Puffs ity of mcg/actuati 00:00: every 4 [place] [facility] on inhaler 00 (four) Medical hours as Branch needed for Wheezing or Shortness of Breath. inhalationa 2020-0 Yes [id number] Use as [facility] l spacing 2-22 directed ity of device 00:00: [place] ([address]) albuterol 2020-0 Yes [id number] 2{puff} Inhale 2 [facility] 90 2-22 Puffs ity of mcg/actuati 00:00: every 4 [place] [facility] on inhaler 00 (four) Medical hours as Branch needed for Wheezing or Shortness of Breath. inhalationa 2020-0 Yes [id number] Use as [facility] l spacing 2-22 directed ity of device 00:00: [place] ([address]) albuterol 2020-0 Yes [id number] 2{puff} Inhale 2 [facility] 90 2-22 Puffs ity of mcg/actuati 00:00: every 4 [place] [facility] on inhaler 00 (four) Medical hours as Branch needed for Wheezing or Shortness of Breath. inhalationa 2020-0 Yes [id number] Use as [facility] l spacing 2-22 directed ity of device 00:00: [place] ([address]) albuterol 2020-0 Yes [id number] 2{puff} Inhale 2 [facility] 90 2-22 Puffs ity of mcg/actuati 00:00: every 4 [place] [facility] on inhaler 00 (four) Medical hours as Branch needed for Wheezing or Shortness of Breath. inhalationa 2020-0 Yes [id number] Use as [facility] l spacing 2-22 directed ity of device 00:00: [place] ([address]) albuterol 2020-0 Yes [id number] 2{puff} Inhale 2 [facility] 90 2-22 Puffs ity of mcg/actuati 00:00: every 4 [place] [facility] on inhaler 00 (four) Medical hours as Branch needed for Wheezing or Shortness of Breath. inhalationa 2020-0 Yes [id number] Use as [facility] l spacing 2-22 directed ity of device 00:00: [place] ([address]) albuterol 2020-0 Yes [id number] 2{puff} Inhale 2 [facility] 90 2-22 Puffs ity of mcg/actuati 00:00: every 4 [place] [facility] on inhaler 00 (four) Medical hours as Branch needed for Wheezing or Shortness of Breath. inhalationa 2020-0 Yes [id number] Use as [facility] l spacing 2-22 directed ity of device 00:00: [place] ([address]) albuterol 2020-0 Yes [id number] 2{puff} Inhale 2 [facility] 90 2-22 Puffs ity of mcg/actuati 00:00: every 4 [place] [facility] on inhaler 00 (four) Medical hours as Branch needed for Wheezing or Shortness of Breath. inhalationa 2020-0 Yes [id number] Use as [facility] l spacing 2-22 directed ity of device 00:00: [place] ([address]) albuterol 2020-0 Yes [id number] 2{puff} Inhale 2 [facility] 90 2-22 Puffs ity of mcg/actuati 00:00: every 4 [place] [facility] on inhaler 00 (four) Medical hours as Branch needed for Wheezing or Shortness of Breath. inhalationa 2020-0 Yes [id number] Use as [facility] l spacing 2-22 directed ity of device 00:00: [place] ([address]) albuterol 2020-0 Yes [id number] 2{puff} Inhale 2 [facility] 90 2-22 Puffs ity of mcg/actuati 00:00: every 4 [place] [facility] on inhaler 00 (four) Medical hours as Branch needed for Wheezing or Shortness of Breath. inhalationa 2020-0 Yes [id number] Use as [facility] l spacing 2-22 directed ity of device 00:00: [place] ([address]) albuterol 2020-0 Yes [id number] 2{puff} Inhale 2 [facility] 90 2-22 Puffs ity of mcg/actuati 00:00: every 4 [place] [facility] on inhaler 00 (four) Medical hours as Branch needed for Wheezing or Shortness of Breath. inhalationa 2020-0 Yes [id number] Use as [facility] l spacing 2-22 directed ity of device 00:00: [place] ([address]) albuterol 2020-0 Yes [id number] 2{puff} Inhale 2 [facility] 90 2-22 Puffs ity of mcg/actuati 00:00: every 4 [place] [facility] on inhaler 00 (four) Medical hours as Branch needed for Wheezing or Shortness of Breath. inhalationa 2020-0 Yes [id number] Use as [facility] l spacing 2-22 directed ity of device 00:00: [place] ([address]) albuterol 2020-0 Yes [id number] 2{puff} Inhale 2 [facility] 90 2-22 Puffs ity of mcg/actuati 00:00: every 4 [place] [facility] on inhaler 00 (four) Medical hours as Branch needed for Wheezing or Shortness of Breath. inhalationa 2020-0 Yes [id number] Use as [facility] l spacing 2-22 directed ity of device 00:00: [place] ([address]) albuterol 2020-0 Yes [id number] 2{puff} Inhale 2 [facility] 90 2-22 Puffs ity of mcg/actuati 00:00: every 4 [place] [facility] on inhaler 00 (four) Medical hours as Branch needed for Wheezing or Shortness of Breath. inhalationa 2020-0 Yes [id number] Use as [facility] l spacing 2-22 directed ity of device 00:00: [place] ([address]) albuterol 2020-0 Yes [id number] 2{puff} Inhale 2 [facility] 90 2-22 Puffs ity of mcg/actuati 00:00: every 4 [place] [facility] on inhaler 00 (four) Medical hours as Branch needed for Wheezing or Shortness of Breath. inhalationa 2020-0 Yes [id number] Use as [facility] l spacing 2-22 directed ity of device 00:00: [place] ([address]) albuterol 2020-0 Yes [id number] 2{puff} Inhale 2 [facility] 90 2-22 Puffs ity of mcg/actuati 00:00: every 4 [place] [facility] on inhaler 00 (four) Medical hours as Branch needed for Wheezing or Shortness of Breath. inhalationa 2020-0 Yes [id number] Use as [facility] l spacing 2-22 directed ity of device 00:00: [place] ([address]) albuterol 2020-0 Yes [id number] 2{puff} Inhale 2 [facility] 90 2-22 Puffs ity of mcg/actuati 00:00: every 4 [place] as on inhaler 00 (four) Medical hours as Branch needed for Wheezing or Shortness of Breath. inhalationa 2020-0 Yes [id number] Use as [facility] l spacing 2-22 directed ity of device 00:00: [place] ([address]) albuterol 2020-0 Yes [id number] 2{puff} Inhale 2 [facility] 90 2-22 Puffs ity of mcg/actuati 00:00: every 4 [place] as on inhaler 00 (four) Medical hours as Branch needed for Wheezing or Shortness of Breath. inhalationa 2020-0 Yes [id number] Use as [facility] l spacing 2-22 directed ity of device 00:00: [place] ([address]) albuterol 2020-0 Yes [id number] 2{puff} Inhale 2 [facility] 90 2-22 Puffs ity of mcg/actuati 00:00: every 4 [place] [facility] on inhaler 00 (four) Medical hours as Branch needed for Wheezing or Shortness of Breath. inhalationa 2020-0 Yes [id number] Use as [facility] l spacing 2-22 directed ity of device 00:00: [place] ([address]) albuterol 2020-0 Yes [id number] 2{puff} Inhale 2 [facility] 90 2-22 Puffs ity of mcg/actuati 00:00: every 4 [place] [facility] on inhaler 00 (four) Medical hours as Branch needed for Wheezing or Shortness of Breath. inhalationa 2020-0 Yes [id number] Use as [facility] l spacing 2-22 directed ity of device 00:00: [place] ([address]) albuterol 2020-0 Yes [id number] 2{puff} Inhale 2 [facility] 90 2-22 Puffs ity of mcg/actuati 00:00: every 4 [place] as on inhaler 00 (four) Medical hours as Branch needed for Wheezing or Shortness of Breath. inhalationa 2020-0 Yes [id number] Use as [facility] l spacing 2-22 directed ity of device 00:00: [place] ([address]) albuterol 2020-0 Yes [id number] 2{puff} Inhale 2 [facility] 90 2-22 Puffs ity of mcg/actuati 00:00: every 4 [place] as on inhaler 00 (four) Medical hours as Branch needed for Wheezing or Shortness of Breath. inhalationa 2020-0 Yes [id number] Use as [facility] l spacing 2-22 directed ity of device 00:00: [place] ([address]) albuterol 2020-0 Yes [id number] 2{puff} Inhale 2 [facility] 90 2-22 Puffs ity of mcg/actuati 00:00: every 4 [place] as on inhaler 00 (four) Medical hours as Branch needed for Wheezing or Shortness of Breath. inhalationa 2020-0 Yes [id number] Use as [facility] l spacing 2-22 directed ity of device 00:00: [place] ([address]) albuterol 2020-0 Yes [id number] 2{puff} Inhale 2 [facility] 90 2-22 Puffs ity of mcg/actuati 00:00: every 4 [place] as on inhaler 00 (four) Medical hours as Branch needed for Wheezing or Shortness of Breath. inhalationa 2020-0 Yes [id number] Use as [facility] l spacing 2-22 directed ity of device 00:00: [place] ([address]) albuterol 2020-0 Yes [id number] 2{puff} Inhale 2 [facility] 90 2-22 Puffs ity of mcg/actuati 00:00: every 4 [place] as on inhaler 00 (four) Medical hours as Branch needed for Wheezing or Shortness of Breath. inhalationa 2020-0 Yes [id number] Use as [facility] l spacing 2-22 directed ity of device 00:00: [place] ([address]) albuterol 2020-0 Yes [id number] 2{puff} Inhale 2 [facility] 90 2-22 Puffs ity of mcg/actuati 00:00: every 4 [place] as on inhaler 00 (four) Medical hours as Branch needed for Wheezing or Shortness of Breath. inhalationa 2020-0 Yes [id number] Use as [facility] l spacing 2-22 directed ity of device 00:00: [place] ([address]) albuterol 2020-0 Yes [id number] 2{puff} Inhale 2 [facility] 90 2-22 Puffs ity of mcg/actuati 00:00: every 4 [place] as on inhaler 00 (four) Medical hours as Branch needed for Wheezing or Shortness of Breath. inhalationa 2020-0 Yes [id number] Use as [facility] l spacing 2-22 directed ity of device 00:00: [place] ([address]) albuterol 2020-0 Yes [id number] 2{puff} Inhale 2 [facility] 90 2-22 Puffs ity of mcg/actuati 00:00: every 4 [place] as on inhaler 00 (four) Medical hours as Branch needed for Wheezing or Shortness of Breath. inhalationa 2020-0 Yes [id number] Use as [facility] l spacing 2-22 directed ity of device 00:00: [place] ([address]) albuterol 2020-0 Yes [id number] 2{puff} Inhale 2 [facility] 90 2-22 Puffs ity of mcg/actuati 00:00: every 4 [place] as on inhaler 00 (four) Medical hours as Branch needed for Wheezing or Shortness of Breath. inhalationa 2020-0 Yes [id number] Use as [facility] l spacing 2-22 directed ity of device 00:00: [place] ([address]) albuterol 2020-0 Yes [id number] 2{puff} Inhale 2 [facility] 90 2-22 Puffs ity of mcg/actuati 00:00: every 4 [place] as on inhaler 00 (four) Medical hours as Branch needed for Wheezing or Shortness of Breath. inhalationa 2020-0 Yes [id number] Use as [facility] l spacing 2-22 directed ity of device 00:00: [place] ([address]) albuterol 2020-0 Yes [id number] 2{puff} Inhale 2 [facility] 90 2-22 Puffs ity of mcg/actuati 00:00: every 4 [place] as on inhaler 00 (four) Medical hours as Branch needed for Wheezing or Shortness of Breath. inhalationa 2020-0 Yes [id number] Use as [facility] l spacing 2-22 directed ity of device 00:00: [place] ([address]) albuterol 2020-0 Yes [id number] 2{puff} Inhale 2 [facility] 90 2-22 Puffs ity of mcg/actuati 00:00: every 4 [place] as on inhaler 00 (four) Medical hours as Branch needed for Wheezing or Shortness of Breath. inhalationa 2020-0 Yes [id number] Use as [facility] l spacing 2-22 directed ity of device 00:00: [place] ([address]) albuterol 2020-0 Yes [id number] 2{puff} Inhale 2 [facility] 90 2-22 Puffs ity of mcg/actuati 00:00: every 4 [place] as on inhaler 00 (four) Medical hours as Branch needed for Wheezing or Shortness of Breath. inhalationa 2020-0 Yes [id number] Use as [facility] l spacing 2-22 directed ity of device 00:00: [place] ([address]) albuterol 2020-0 Yes [id number] 2{puff} Inhale 2 [facility] 90 2-22 Puffs ity of mcg/actuati 00:00: every 4 [place] as on inhaler 00 (four) Medical hours as Branch needed for Wheezing or Shortness of Breath. inhalationa 2020-0 Yes [id number] Use as [facility] l spacing 2-22 directed ity of device 00:00: [place] ([address]) albuterol 2020-0 Yes [id number] 2{puff} Inhale 2 [facility] 90 2-22 Puffs ity of mcg/actuati 00:00: every 4 [place] as on inhaler 00 (four) Medical hours as Branch needed for Wheezing or Shortness of Breath. inhalationa 2020-0 Yes [id number] Use as [facility] l spacing 2-22 directed ity of device 00:00: [place] ([address]) albuterol 2020-0 Yes [id number] 2{puff} Inhale 2 [facility] 90 2-22 Puffs ity of mcg/actuati 00:00: every 4 [place] as on inhaler 00 (four) Medical hours as Branch needed for Wheezing or Shortness of Breath. inhalationa 2020-0 Yes [id number] Use as [facility] l spacing 2-22 directed ity of device 00:00: [place] ([address]) albuterol 2020-0 Yes [id number] 2{puff} Inhale 2 [facility] 90 2-22 Puffs ity of mcg/actuati 00:00: every 4 [place] as on inhaler 00 (four) Medical hours as Branch needed for Wheezing or Shortness of Breath. acetaminoph 2020-0 Yes [id number] 1/2 - 1 [facility] en-codeine 2-22 tab Every ity of 300-30 mg 00:00: 4hrs as [place] tablet 00 needed for Medical pain or Branch cough requiring narcotic inhalationa 2020-0 Yes [id number] Use as [facility] l spacing 2-22 directed ity of device 00:00: [place] ([address]) albuterol 2020-0 Yes [id number] 2{puff} Inhale 2 [facility] 90 2-22 Puffs ity of mcg/actuati 00:00: every 4 [place] as on inhaler 00 (four) Medical hours as Branch needed for Wheezing or Shortness of Breath. acetaminoph 2020-0 Yes [id number] 2 - 1 [facility] en-codeine 2-22 tab Every ity of 300-30 mg 00:00: 4hrs as [place] tablet 00 needed for Medical pain or Branch cough requiring narcotic inhalationa 2020-0 Yes [id number] Use as [facility] l spacing 2-22 directed ity of device 00:00: [place] ([facility] 00 [place] [facility] [place]) albuterol 2020-0 Yes [id number] 2{puff} Inhale 2 [facility] 90 2-22 Puffs ity of mcg/actuati 00:00: every 4 [place] as on inhaler 00 (four) Medical hours as Branch needed for Wheezing or Shortness of Breath. acetaminoph 2020-0 Yes [id number] 2 - 1 [facility] en-codeine 2-22 tab Every ity of 300-30 mg 00:00: 4hrs as [place] tablet 00 needed for Medical pain or Branch cough requiring narcotic inhalationa 2020-0 Yes [id number] Use as [facility] l spacing 2-22 directed ity of device 00:00: [place] ([place] 00 [place] [facility] [place]) albuterol 2020-0 Yes [id number] 2{puff} Inhale 2 [facility] 90 2-22 Puffs ity of mcg/actuati 00:00: every 4 [place] as on inhaler 00 (four) Medical hours as Branch needed for Wheezing or Shortness of Breath. acetaminoph 2020-0 Yes [id number] 2 - 1 [facility] en-codeine 2-22 tab Every ity of 300-30 mg 00:00: 4hrs as [place] tablet 00 needed for Medical pain or Branch cough requiring narcotic inhalationa 2020-0 Yes [id number] Use as [facility] l spacing 2-22 directed ity of device 00:00: [place] ([place] 00 [place] [facility] [place]) albuterol 2020-0 Yes [id number] 2{puff} Inhale 2 [facility] 90 2-22 Puffs ity of mcg/actuati 00:00: every 4 [place] as on inhaler 00 (four) Medical hours as Branch needed for Wheezing or Shortness of Breath. acetaminoph 2020-0 Yes [id number] 2 - 1 [facility] en-codeine 2-22 tab Every ity of 300-30 mg 00:00: 4hrs as [place] tablet 00 needed for Medical pain or Branch cough requiring narcotic inhalationa 2020-0 Yes [id number] Use as [facility] l spacing 2-22 directed ity of device 00:00: [place] ([address]) albuterol 2020-0 Yes [id number] 2{puff} Inhale 2 [facility] 90 2-22 Puffs ity of mcg/actuati 00:00: every 4 [place] as on inhaler 00 (four) Medical hours as Branch needed for Wheezing or Shortness of Breath. acetaminoph 2020-0 Yes [id number] 2 - [facility] en-codeine 2-22 tab Every ity of 300-30 mg 00:00: 4hrs as [place] tablet 00 needed for Medical pain or Branch cough requiring narcotic inhalationa 2020-0 Yes [id number] Use as [facility] l spacing 2-22 directed ity of device 00:00: [place] ([address]) albuterol 2020-0 Yes [id number] 2{puff} Inhale 2 [facility] 90 2-22 Puffs ity of mcg/actuati 00:00: every 4 [place] as on inhaler 00 (four) Medical hours as Branch needed for Wheezing or Shortness of Breath. acetaminoph 2020-0 Yes [id number] 09/18 - [facility] en-codeine 2-22 tab Every ity of 300-30 mg 00:00: 4hrs as [place] tablet 00 needed for Medical pain or Branch cough requiring narcotic inhalationa 2020-0 Yes [id number] Use as [facility] l spacing 2-22 directed ity of device 00:00: [place] ([address]) albuterol 2020-0 Yes [id number] 2{puff} Inhale 2 [facility] 90 2-22 Puffs ity of mcg/actuati 00:00: every 4 [place] as on inhaler 00 (four) Medical hours as Branch needed for Wheezing or Shortness of Breath. acetaminoph 2020-0 Yes [id number] 2 - 1 [facility] en-codeine 2-22 tab Every ity of 300-30 mg 00:00: 4hrs as [place] tablet 00 needed for Medical pain or Branch cough requiring narcotic inhalationa 2020-0 Yes [id number] Use as [facility] l spacing 2-22 directed ity of device 00:00: [place] ([facility] 00 Medical [facility] Branch [facility]) aerosol 2019-0 Yes See Admin Metho di holding 11-[address] [facility] l acetaminoph 0 2020- No [id number] 09/18 [facility] en-codeine 11-08 09-10 tab Every ity of 300-30 mg 00:00: 00:00 4hrs [place] tablet 00 :00 needed for Medical pain or Branch cough requiring narcotic tiZANidine 2020-0 Yes [id number] 4mg Take 1-2 [facility] 4 mg tablet 2-13 tablets by it y of 00:00: mouth [place] 00 every 8 Medical (eight) Branch hours as needed (muscle pain or spasm). AMLODIPINE 2020-0 Yes [id number] TAKE 1 U nivers 2.5 mg 2-13 TABLET BY ity of tablet 00:00: MOUTH [place] 00 EVERY DAY Medical Branch tiZANidine 2020-0 Yes [id number] 4mg Take 1-2 [facility] 4 mg tablet 2-13 tablets by it y of 00:00: mouth [place] 00 every 8 Medical (eight) Branch hours as needed (muscle pain or spasm). AMLODIPINE 2020-0 Yes [id number] TAKE 1 U nivers 2.5 mg 2-13 TABLET BY ity of tablet 00:00: MOUTH [place] 00 EVERY DAY Medical Branch tiZANidine 2020-0 Yes [id number] 4mg Take 1-2 [facility] 4 mg tablet 2-13 tablets by it y of 00:00: mouth [place] 00 every 8 Medical (eight) Branch hours as needed (muscle pain or spasm). AMLODIPINE 2020-0 Yes [id number] TAKE 1 U nivers 2.5 mg 2-13 TABLET BY ity of tablet 00:00: MOUTH [place] 00 EVERY DAY Medical Branch tiZANidine 2020-0 Yes [id number] 4mg Take 1-2 [facility] 4 mg tablet 2-13 tablets by it y of 00:00: mouth [place] 00 every 8 Medical (eight) Branch hours as needed (muscle pain or spasm). AMLODIPINE 2020-0 Yes [id number] TAKE 1 U nivers 2.5 mg 2-13 TABLET BY ity of tablet 00:00: MOUTH [place] 00 EVERY DAY Medical Branch tiZANidine 2020-0 Yes [id number] 4mg Take 1-2 [facility] 4 mg tablet 2-13 tablets by it y of 00:00: mouth [place] 00 every 8 Medical (eight) Branch hours as needed (muscle pain or spasm). AMLODIPINE 2020-0 Yes [id number] TAKE 1 U nivers 2.5 mg 2-13 TABLET BY ity of tablet 00:00: MOUTH [place] 00 EVERY DAY Medical Branch tiZANidine 2020-0 Yes [id number] 4mg Take 1-2 [facility] 4 mg tablet 2-13 tablets by it y of 00:00: mouth [place] 00 every 8 Medical (eight) Branch hours as needed (muscle pain or spasm). AMLODIPINE 2020-0 Yes [id number] TAKE 1 U nivers 2.5 mg 2-13 TABLET BY ity of tablet 00:00: MOUTH [place] 00 EVERY DAY Medical Branch tiZANidine 2020-0 Yes [id number] 4mg Take 1-2 [facility] 4 mg tablet 2-13 tablets by it y of 00:00: mouth [place] 00 every 8 Medical (eight) Branch hours as needed (muscle pain or spasm). AMLODIPINE 2020-0 Yes [id number] TAKE 1 U nivers 2.5 mg 2-13 TABLET BY ity of tablet 00:00: MOUTH [place] 00 EVERY DAY Medical Branch tiZANidine 2020-0 Yes [id number] 4mg Take 1-2 [facility] 4 mg tablet 2-13 tablets by it y of 00:00: mouth [place] 00 every 8 Medical (eight) Branch hours as needed (muscle pain or spasm). AMLODIPINE 2020-0 Yes [id number] TAKE 1 U nivers 2.5 mg 2-13 TABLET BY ity of tablet 00:00: MOUTH [place] 00 EVERY DAY Medical Branch tiZANidine 2020-0 Yes [id number] 4mg Take 1-2 [facility] 4 mg tablet 2-13 tablets by it y of 00:00: mouth [place] 00 every 8 Medical (eight) Branch hours as needed (muscle pain or spasm). AMLODIPINE 2020-0 Yes [id number] TAKE 1 U n[facility] 2.5 mg 2-13 TABLET BY ity of tablet 00:00: MOUTH [place] 00 EVERY DAY Medical Branch tiZANidine 2020-0 Yes [id number] 4mg Take 1-2 [facility] 4 mg tablet 2-13 tablets by it y of 00:00: mouth [place] 00 every 8 Medical (eight) Branch hours as needed (muscle pain or spasm). AMLODIPINE 2020-0 Yes [id number] TAKE 1 [facility] nivers 2.5 mg 2-13 TABLET BY ity of tablet 00:00: MOUTH [place] 00 EVERY DAY Medical Branch tiZANidine 2020-0 Yes [id number] 4mg Take 1-2 [facility] 4 mg tablet 2-13 tablets by it y of 00:00: mouth [place] 00 every 8 Medical (eight) Branch hours as needed (muscle pain or spasm). AMLODIPINE 2020-0 Yes [id number] TAKE 1 [facility] nivers 2.5 mg 2-13 TABLET BY ity of tablet 00:00: MOUTH [place] 00 EVERY DAY Medical Branch tiZANidine 2020-0 Yes [id number] 4mg Take 1-2 [facility] 4 mg tablet 2-13 tablets by it y of 00:00: mouth [place] 00 every 8 Medical (eight) Branch hours as needed (muscle pain or spasm). AMLODIPINE 2020-0 Yes [id number] TAKE 1 [facility] 2.5 mg 2-13 TABLET BY ity of tablet 00:00: MOUTH 00 EVERY DAY Medical Branch AMLODIPINE 2020-0 Yes [id number] TAKE 1 [facility] nivers 2.5 mg 2-13 TABLET BY ity of tablet 00:00: MOUTH [place] 00 EVERY DAY Medical Branch AMLODIPINE 2020-0 Yes [id number] TAKE 1 [facility] 2.5 mg 2-13 TABLET BY ity of tablet 00:00: MOUTH 00 EVERY DAY Medical Branch AMLODIPINE 2020-0 Yes [id number] TAKE 1 [facility] 2.5 mg 2-13 TABLET BY ity of tablet 00:00: MOUTH 00 EVERY DAY Medical Branch AMLODIPINE 2020-0 Yes [id number] TAKE 1 [facility] 2.5 mg 2-13 TABLET BY ity of tablet 00:00: MOUTH 00 EVERY DAY Medical Branch AMLODIPINE 2020-0 Yes [id number] TAKE 1 [facility] 2.5 mg 2-13 TABLET BY ity of tablet 00:00: MOUTH 00 EVERY DAY Medical Branch AMLODIPINE 2020-0 Yes [id number] TAKE 1 [facility] 2.5 mg 2-13 TABLET BY ity of tablet 00:00: MOUTH [place] 00 EVERY DAY Medical Branch AMLODIPINE 2020-0 Yes [id number] TAKE 1 [facility] 2.5 mg 2-13 TABLET BY ity of tablet 00:00: MOUTH 00 EVERY DAY Medical Branch AMLODIPINE 2020-0 Yes [id number] TAKE 1 [facility] 2.5 mg 2-13 TABLET BY ity of tablet 00:00: MOUTH [place] 00 EVERY DAY Medical Branch AMLODIPINE 2020-0 Yes [id number] TAKE 1 [facility] 2.5 mg 2-13 TABLET BY ity of tablet 00:00: MOUTH [place] 00 EVERY DAY Medical Branch AMLODIPINE 2020-0 Yes [id number] TAKE 1 [facility] 2.5 mg 2-13 TABLET BY ity of tablet 00:00: MOUTH [place] 00 EVERY DAY Medical Branch AMLODIPINE 2020-0 Yes [id number] TAKE 1 [facility] 2.5 mg 2-13 TABLET BY ity of tablet 00:00: MOUTH [place] 00 EVERY DAY Medical Branch AMLODIPINE 2020-0 Yes [id number] TAKE 1 [facility] 2.5 mg 2-13 TABLET BY ity of tablet 00:00: MOUTH [place] 00 EVERY DAY Medical Branch AMLODIPINE 2020-0 Yes [id number] TAKE 1 [facility] 2.5 mg 2-13 TABLET BY ity of tablet 00:00: MOUTH 00 EVERY DAY Medical Branch AMLODIPINE 2020-0 Yes [id number] TAKE 1 [facility] 2.5 mg 2-13 TABLET BY ity of tablet 00:00: MOUTH [place] 00 EVERY DAY Medical Branch AMLODIPINE 2020-0 Yes [id number] TAKE 1 [facility] 2.5 mg 2-13 TABLET BY ity of tablet 00:00: MOUTH [place] 00 EVERY DAY Medical Branch AMLODIPINE 2020-0 Yes [id number] TAKE 1 [facility] 2.5 mg 2-13 TABLET BY ity of tablet 00:00: MOUTH [place] 00 EVERY DAY Medical Branch AMLODIPINE 2020-0 Yes [id number] TAKE 1 [facility] 2.5 mg 2-13 TABLET BY ity of tablet 00:00: MOUTH [place] 00 EVERY DAY Medical Branch tiZANidine 2020-0 Yes [id number] 4mg Take 1-2 [facility] 4 mg tablet 2-13 tablets by it y of 00:00: mouth [place] 00 every 8 Medical (eight) Branch hours as needed (muscle pain or spasm). amLODIPine 2020-0 Yes [id number] 2.5mg Take 1 [facility] 2.5 mg 2-13 tablet by ity of tablet 00:00: mouth [place] 00 daily. Medical Branch tiZANidine 2020-0 Yes [id number] 4mg Take 1-2 [facility] 4 mg tablet 2-13 tablets by it y of 00:00: mouth [place] 00 every 8 Medical (eight) Branch hours as needed (muscle pain or spasm). AMLODIPINE 2020-0 Yes [id number] TAKE 1 [facility] 2.5 mg 2-13 TABLET BY ity of tablet 00:00: MOUTH [place] 00 EVERY DAY Medical Branch tiZANidine 2020-0 Yes [id number] 4mg Take 1-2 [facility] 4 mg tablet 2-13 tablets by it y of 00:00: mouth [place] 00 every 8 Medical (eight) Branch hours as needed (muscle pain or spasm). AMLODIPINE 2020-0 Yes [id number] TAKE 1 [facility] 2.5 mg 2-13 TABLET BY ity of tablet 00:00: MOUTH [place] 00 EVERY DAY Medical Branch tiZANidine 2020-0 Yes [id number] 4mg Take 1-2 [facility] 4 mg tablet 2-13 tablets by it y of 00:00: mouth [place] 00 every 8 Medical (eight) Branch hours as needed (muscle pain or spasm). AMLODIPINE 2020-0 Yes [id number] TAKE 1 [facility] 2.5 mg 2-13 TABLET BY ity of tablet 00:00: MOUTH [place] 00 EVERY DAY Medical Branch tiZANidine 2020-0 Yes [id number] 4mg Take 1-2 [facility] 4 mg tablet 2-13 tablets by it y of 00:00: mouth [place] 00 every 8 Medical (eight) Branch hours as needed (muscle pain or spasm). AMLODIPINE 2020-0 Yes [id number] TAKE 1 [facility] 2.5 mg 2-13 TABLET BY ity of tablet 00:00: MOUTH [place] 00 EVERY DAY Medical Branch tiZANidine 2020-0 Yes [id number] 4mg Take 1-2 [facility] 4 mg tablet 2-13 tablets by it y of 00:00: mouth [place] 00 every 8 Medical (eight) Branch hours as needed (muscle pain or spasm). tiZANidine 2020-0 Yes [id number] 4mg Take 1-2 [facility] 4 mg tablet 2-13 tablets by it y of 00:00: mouth [place] 00 every 8 Medical (eight) Branch hours as needed (muscle pain or spasm). tiZANidine 2020-0 Yes [id number] 4mg Take 1-2 [facility] 4 mg tablet 2-13 tablets by it y of 00:00: mouth [place] 00 every 8 Medical (eight) Branch hours as needed (muscle pain or spasm). AMLODIPINE 2020-0 Yes [id number] TAKE 1 [facility] 2.5 mg 2-13 TABLET BY ity of tablet 00:00: MOUTH [place] 00 EVERY DAY Medical Branch tiZANidine 2020-0 Yes [id number] 4mg Take 1-2 [facility] 4 mg tablet 2-13 tablets by it y of 00:00: mouth [place] 00 every 8 Medical (eight) Branch hours as needed (muscle pain or spasm). AMLODIPINE 2020-0 Yes [id number] TAKE 1 [facility] 2.5 mg 2-13 TABLET BY ity of tablet 00:00: MOUTH 00 EVERY DAY Medical Branch tiZANidine 2020-0 Yes [id number] 4mg Take 1-2 [facility] 4 mg tablet 2-13 tablets by it y of 00:00: mouth [place] 00 every 8 Medical (eight) Branch hours as needed (muscle pain or spasm). AMLODIPINE 2020-0 Yes [id number] TAKE 1 [facility] 2.5 mg 2-13 TABLET BY ity of tablet 00:00: MOUTH 00 EVERY DAY Medical Branch tiZANidine 2020-0 Yes [id number] 4mg Take 1-2 [facility] 4 mg tablet 2-13 tablets by it y of 00:00: mouth [place] 00 every 8 Medical (eight) Branch hours as needed (muscle pain or spasm). AMLODIPINE 2020-0 Yes [id number] TAKE 1 [facility] 2.5 mg 2-13 TABLET BY ity of tablet 00:00: MOUTH 00 EVERY DAY Medical Branch tiZANidine 2020-0 Yes [id number] 4mg Take 1-2 [facility] 4 mg tablet 2-13 tablets by it y of 00:00: mouth [place] 00 every 8 Medical (eight) Branch hours as needed (muscle pain or spasm). AMLODIPINE 2020-0 Yes [id number] TAKE 1 [facility] 2.5 mg 2-13 TABLET BY ity of tablet 00:00: MOUTH [place] 00 EVERY DAY Medical Branch tiZANidine 2020-0 Yes [id number] 4mg Take 1-2 [facility] 4 mg tablet 2-13 tablets by it y of 00:00: mouth [place] 00 every 8 Medical (eight) Branch hours as needed (muscle pain or spasm). AMLODIPINE 2020-0 Yes [id number] TAKE 1 [facility] 2.5 mg 2-13 TABLET BY ity of tablet 00:00: MOUTH 00 EVERY DAY Medical Branch tiZANidine 2020-0 Yes [id number] 4mg Take 1-2 [facility] 4 mg tablet 2-13 tablets by it y of 00:00: mouth [place] 00 every 8 Medical (eight) Branch hours as needed (muscle pain or spasm). AMLODIPINE 2020-0 Yes [id number] TAKE 1 [facility] 2.5 mg -13 TABLET BY ity of tablet 00:00: MOUTH [place] 00 EVERY DAY Medical Branch AMLODIPINE 2019-0 2020- No [id number] TAKE 1 [facility] 2.5 mg 2-06-07 TABLET BY ity of tablet 00:00: 00:00 MOUTH [place] 00 :00 EVERY DAY Medical Branch AMLODIPINE 2019-0 2020- No [id number] TAKE 1 [facility] 2.5 mg 2-30 05- TABLET BY ity of tablet 00:00: 00:00 MOUTH [place] 00 :00 EVERY DAY Medical Branch tiZANidine 2019-0 2020- No [id number] 4mg Take 1-2 [facility] 4 mg tablet 10-30- tablets by i ty of 00:00: 00:00 mouth [place] 00 :00 every 8 Medical (eight) Branch hours as needed (muscle pain or spasm). amLODIPine 2019-0 2020- No [id number] 2.5mg Take 1 [facility] 2.5 mg 2-30 10- tablet by ity of tablet 00:00: 00:00 mouth [place] 00 :00 daily. Medical Branch amLODIPine 2019-0 2020- No [id number] 2.5mg Take 1 [facility] 2.5 mg 2-30 10- tablet by ity of tablet 00:00: 00:00 mouth [place] 00 :00 daily. Medical Branch amLODIPine 2019-0 2020- No [id number] 2.5mg Take 1 [facility] 2.5 mg 2-30 [...] 2019-0 Yes Take by Unive rs CALCIUM -06 mouth. ity of (VITAMIN C 18:01: [place] ORAL) 24 Medical Branch DOCOSAHEXAN 2019-0 Yes Take by [facility] vers OIC 1-06 mouth. ity of ACID/EPA 18:01: [place] (FISH OIL 24 Medical ORAL) Branch vitamin [...] 1-06 mouth. ity of ITAMIN D3 18:01: [place] (VITAMIN 24 Medical D-3 ORAL) Branch alcaftadine [...] OIC 1-06 mouth. ity of ACID/EPA 18:01: [place] (FISH OIL 24 Medical ORAL) Branch vitamin [...] 1-06 mouth. ity of ITAMIN D3 18:01: [place] (VITAMIN 24 Medical D-3 ORAL) Branch alcaftadine [...] OIC 1-06 mouth. ity of ACID/EPA 18:01: [place] (FISH OIL 24 Medical ORAL) Branch vitamin [...] 1-06 mouth. ity of ITAMIN D3 18:01: [place] (VITAMIN Medical D-3 ORAL) Branch alcaftadine 2020-0 [...] OIC 1-06 mouth. ity of ACID/EPA 18:01: [place] (FISH OIL 24 Medical ORAL) Branch vitamin [...] 1-06 mouth. ity of ITAMIN D3 18:01: [place] (VITAMIN 24 Medical D-3 ORAL) Branch alcaftadine [...] OIC 1-06 mouth. ity of ACID/EPA 18:01: [place] (FISH OIL 24 Medical ORAL) Branch vitamin [...] 1-06 mouth. ity of ITAMIN D3 18:01: [place] (VITAMIN 24 Medical D-3 ORAL) Branch alcaftadine 2020-[address] [place] (LASTACAFT) 1-06 each eye. ity of 0.25 [...] OIC 1-06 mouth. ity of ACID/EPA 18:01: [place] (FISH OIL 24 Medical ORAL) Branch vitamin [...] 1-06 mouth. ity of ITAMIN D3 18:01: [place] (VITAMIN 24 Medical D-3 ORAL) Branch alcaftadine [...] OIC 1-06 mouth. ity of ACID/EPA 18:01: [place] (FISH OIL 24 Medical ORAL) Branch vitamin [...] 1-06 mouth. ity of ITAMIN D3 18:01: [place] (VITAMIN 24 Medical D-3 ORAL) Branch alcaftadine [...] OIC 1-06 mouth. ity of ACID/EPA 18:01: [place] (FISH OIL 24 Medical ORAL) Branch vitamin [...] 1-06 mouth. ity of ITAMIN D3 18:01: [place] (VITAMIN 24 Medical D-3 ORAL) Branch alcaftadine [...] OIC 1-06 mouth. ity of ACID/EPA 18:01: [place] (FISH OIL 24 Medical ORAL) Branch vitamin [...] 1-06 mouth. ity of ITAMIN D3 18:01: [place] (VITAMIN 24 Medical D-3 ORAL) Branch alcaftadine [...] OIC 1-06 mouth. ity of ACID/EPA 18:01: [place] (FISH OIL 24 Medical ORAL) Branch vitamin [...] 1-06 mouth. ity of ITAMIN D3 18:01: [place] (VITAMIN 24 Medical D-3 ORAL) Branch alcaftadine [...] OIC 1-06 mouth. ity of ACID/EPA 18:01: [place] (FISH OIL 24 Medical ORAL) Branch vitamin [...] 1-06 mouth. ity of ITAMIN D3 18:01: [place] (VITAMIN 24 Medical D-3 ORAL) Branch alcaftadine [...] OIC 1-06 mouth. ity of ACID/EPA 18:01: [place] (FISH OIL 24 Medical ORAL) Branch vitamin [...] 1-06 mouth. ity of ITAMIN D3 18:01: [place] (VITAMIN 24 Medical D-3 ORAL) Branch alcaftadine 2020-[address] [place] (LASTACAFT) 1-06 each eye. ity of 0.25 % Drop 18:01: 24 Medical Branch CYCLOSPORIN 2020-[address] [facility] [place] (RESTASIS 1-06 each eye. ity of OPHTHALMIC) 18:01: 24 Medical Branch ASCORBATE 2020-0 Yes Take by Unive rs CALCIUM 1-06 mouth. ity of (VITAMIN C 18:01: [place] ORAL) 24 Medical Branch DOCOSAHEXAN 2020-0 Yes Take by Uni vers OIC 1-06 mouth. ity of ACID/EPA 18:01: [place] (FISH OIL 24 Medical ORAL) Branch vitamin [...] 1-06 mouth. ity of ITAMIN D3 18:01: [place] (VITAMIN 24 Medical D-3 ORAL) Branch alcaftadine [address] [place] (LASTACAFT) 1-06 each eye. ity of 0.25 % Drop 18:: Medical Branch CYCLOSPORIN [address] [place] (RESTASIS 1-06 each eye. ity of OPHTHALMIC) 18:01: Medical Branch ASCORBATE 2019-0 Yes Take by Unive rs CALCIUM 1-06 mouth. ity of (VITAMIN C 18:01: [place] ORAL) Medical Branch DOCOSAHEXAN 2019-0 Yes Take by Uni vers OIC 1-06 mouth. ity of ACID/EPA 18:01: [place] (FISH OIL 24 Medical ORAL) Branch vitamin [...] 1-06 mouth. ity of ITAMIN D3 18:: [place] (VITAMIN 24 Medical D-3 ORAL) Branch TRIAMTERENE 2018-09 Yes [id number] TAKE 2 [facility] -HYDROCHLOR 2-02 TABLETS BY it y of OTHIAZID 00:00: MOUTH [place] 37.5-25 mg 00 DAILY. Medical tablet Branch TRIAMTERENE 2018-09 Yes [id number] TAKE 2 [facility] -HYDROCHLOR 2-02 TABLETS BY it y of OTHIAZID 00:00: MOUTH [place] 37.5-25 mg 00 DAILY. [facility] [id number] [facility] 2 [facility] -HYDROCHLOR 2-02 TABLETS BY it y of OTHIAZID 00:00: MOUTH [place] 37.5-25 mg 00 DAILY. Medical [facility] Yes [id number] TAKE 2 [facility] -HYDROCHLOR 2-02 TABLETS BY it y of OTHIAZID 00:00: MOUTH [place] 37.5-25 mg 00 DAILY. Medical [facility] Yes [id number] TAKE 2 [facility] -HYDROCHLOR 2-02 TABLETS BY it y of OTHIAZID 00:00: MOUTH [place] 37.5-25 mg 00 DAILY. Medical tablet Branch [facility] 2018-[facility] Yes [id number] TAKE 2 [facility] -HYDROCHLOR 2-02 TABLETS BY it y of OTHIAZID 00:00: MOUTH [place] 37.5-25 mg 00 DAILY. Medical tablet Branch [facility] 2018-09 Yes [id number] TAKE 2 [facility] -HYDROCHLOR 2-02 TABLETS BY it y of OTHIAZID 00:00: MOUTH [place] 37.5-25 mg 00 DAILY. Medical tablet Branch [facility] 2018-09 Yes [id number] TAKE 2 [facility] -HYDROCHLOR 2-02 TABLETS BY it y of OTHIAZID 00:00: MOUTH [place] 37.5-25 mg 00 DAILY. Medical tablet Branch [facility] 2018-09 Yes [id number] TAKE 2 [facility] -HYDROCHLOR 2-02 TABLETS BY it y of OTHIAZID 00:00: MOUTH [place] 37.5-25 mg 00 DAILY. Medical tablet [facility] Yes [id number] TAKE 2 [facility] -HYDROCHLOR 2-02 TABLETS BY it y of OTHIAZID 00:00: MOUTH [place] 37.5-25 mg 00 DAILY. Medical tablet [facility] Yes [id number] TAKE 2 [facility] -HYDROCHLOR 2-02 TABLETS BY it y of OTHIAZID 00:00: MOUTH [place] 37.5-25 mg 00 DAILY. Medical tablet [facility] Yes [id number] TAKE 2 [facility] -HYDROCHLOR 2-02 TABLETS BY it y of OTHIAZID 00:00: MOUTH [place] 37.5-25 mg 00 DAILY. Medical tablet Branch [facility] 2018-09 Yes [id number] TAKE 2 [facility] -HYDROCHLOR 2-02 TABLETS BY it y of OTHIAZID 00:00: MOUTH [place] 37.5-25 mg 00 DAILY. Medical tablet [facility] 2018-09 Yes [id number] TAKE 2 [facility] -HYDROCHLOR 2-02 TABLETS BY it y of OTHIAZID 00:00: MOUTH [place] 37.5-25 mg 00 DAILY. Medical tablet [facility] 2018-09 Yes [id number] TAKE 2 [facility] -HYDROCHLOR 2-02 TABLETS BY it y of OTHIAZID 00:00: MOUTH [place] 37.5-25 mg 00 DAILY. Medical tablet [facility] 2018-09 Yes [id number] TAKE 2 [facility] -HYDROCHLOR 2-02 TABLETS BY it y of OTHIAZID 00:00: MOUTH [place] 37.5-25 mg 00 DAILY. Medical tablet Branch [facility] 2018-09 Yes [id number] TAKE 2 [facility] -HYDROCHLOR 2-02 TABLETS BY it y of OTHIAZID 00:00: MOUTH [place] 37.5-25 mg 00 DAILY. Medical tablet [facility] 2018-09 Yes [id number] TAKE 2 [facility] -HYDROCHLOR 2-02 TABLETS BY it y of OTHIAZID 00:00: MOUTH [place] 37.5-25 mg 00 DAILY. Medical tablet Branch [facility] 2018-09 Yes [id number] TAKE 2 [facility] -HYDROCHLOR 2-02 TABLETS BY it y of OTHIAZID 00:00: MOUTH [place] 37.5-25 mg 00 DAILY. Medical tablet Branch [facility] 2018-09 Yes [id number] TAKE 2 [facility] -HYDROCHLOR 2-02 TABLETS BY it y of OTHIAZID 00:00: MOUTH [place] 37.5-25 mg 00 DAILY. Medical tablet [facility] 2018-09 Yes [id number] TAKE 2 [facility] -HYDROCHLOR 2-02 TABLETS BY it y of OTHIAZID 00:00: MOUTH [place] 37.5-25 mg 00 DAILY. Medical tablet [facility] 2018-09 Yes [id number] TAKE 2 [facility] -HYDROCHLOR 2-02 TABLETS BY it y of OTHIAZID 00:00: MOUTH [place] 37.5-25 mg 00 DAILY. Medical tablet [facility] 2018-09 Yes [id number] TAKE 2 [facility] -HYDROCHLOR 2-02 TABLETS BY it y of OTHIAZID 00:00: MOUTH [place] 37.5-25 mg 00 DAILY. Medical tablet [facility] Yes [id number] TAKE 2 [facility] -HYDROCHLOR 2-02 TABLETS BY it y of OTHIAZID 00:00: MOUTH [place] 37.5-25 mg 00 DAILY. Medical tablet [facility] Yes [id number] TAKE 2 [facility] -HYDROCHLOR 2-02 TABLETS BY it y of OTHIAZID 00:00: MOUTH [place] 37.5-25 mg 00 DAILY. Medical tablet Branch [facility] 2018-[facility] Yes [id number] TAKE 2 [facility] -HYDROCHLOR 2-02 TABLETS BY it y of OTHIAZID 00:00: MOUTH [place] 37.5-25 mg 00 DAILY. Medical tablet Branch [facility] 2018-09 Yes [id number] TAKE 2 [facility] -HYDROCHLOR 2-02 TABLETS BY it y of OTHIAZID 00:00: MOUTH [place] 37.5-25 mg 00 DAILY. Medical tablet Branch [facility] 2018-09 Yes [id number] TAKE 2 [facility] -HYDROCHLOR 2-02 TABLETS BY it y of OTHIAZID 00:00: MOUTH [place] 37.5-25 mg 00 DAILY. Medical tablet Branch [facility] 2018-09 Yes [id number] TAKE 2 [facility] -HYDROCHLOR 2-02 TABLETS BY it y of OTHIAZID 00:00: MOUTH [place] 37.5-25 mg 00 DAILY. Medical tablet Branch tiZANidine 2018-09 Yes [id number] 2mg Take 1-2 [facility] 2 mg tablet 1-20 tablets by it y of 00:00: mouth [place] 00 every 8 Medical (eight) Branch hours as needed (muscle pain or spasm). tiZANidine 2018-09 Yes [id number] 2mg Take 1-2 [facility] 2 mg tablet 1-20 tablets by it y of 00:00: mouth [place] 00 every 8 Medical (eight) Branch hours as needed (muscle pain or spasm). tiZANidine 2018-09 2020- No [id number] 2mg Take 1-2 [facility] 2 mg tablet 1-20 02-13 tablets by i ty of 00:00: 00:00 mouth [place] 00 :00 every 8 Medical (eight) Branch hours as needed (muscle pain or spasm). tiZANidine 2018-09 2020- No [id number] 2mg Take 1-2 [facility] 2 mg tablet 1-20 02-13 tablets by i ty of 00:00: 00:00 mouth [place] 00 :00 every 8 Medical (eight) Branch hours as needed (muscle pain or spasm). TRAZODONE 2018-09 Yes [id number] 100mg TAKE 1 [facility] 100 mg 0-08 TABLET BY ity of tablet 00:00: MOUTH AT [place] 00 BEDTIME. Medical FOR Branch INSOMNIA. TRAZODONE 2018-09 Yes [id number] 100mg TAKE 1 [facility] 100 mg 0-08 TABLET BY ity of tablet 00:00: MOUTH AT [place] 00 BEDTIME. Medical FOR Branch INSOMNIA. TRAZODONE 2018-09 Yes [id number] 100mg TAKE 1 [facility] 100 mg 0-08 TABLET BY ity of tablet 00:00: MOUTH AT [place] 00 BEDTIME. Medical FOR Branch INSOMNIA. TRAZODONE 2018-09 Yes [id number] 100mg TAKE 1 [facility] 100 mg 0-08 TABLET BY ity of tablet 00:00: MOUTH AT [place] 00 BEDTIME. Medical FOR Branch INSOMNIA. TRAZODONE 2018-09 Yes [id number] 100mg TAKE 1 [facility] 100 mg 0-08 TABLET BY ity of tablet 00:00: MOUTH AT [place] 00 BEDTIME. Medical FOR Branch INSOMNIA. TRAZODONE 2018-09 Yes [id number] 100mg TAKE 1 [facility] 100 mg 0-08 TABLET BY ity of tablet 00:00: MOUTH AT [place] 00 BEDTIME. Medical FOR Branch INSOMNIA. TRAZODONE 2018-09 Yes [id number] 100mg TAKE 1 [facility] 100 mg 0-08 TABLET BY ity of tablet 00:00: MOUTH AT [place] [address] BEDTIME. Medical FOR Branch INSOMNIA. TRAZODONE 2018-09 Yes [id number] 100mg TAKE 1 [facility] 100 mg 0-08 TABLET BY ity of tablet 00:00: MOUTH AT [place] [address] BEDTIME. Medical FOR Branch INSOMNIA. TRAZODONE 2018-09 Yes [id number] 100mg TAKE 1 [facility] 100 mg 0-08 TABLET BY ity of tablet 00:00: MOUTH AT [place] 00 BEDTIME. Medical FOR Branch INSOMNIA. TRAZODONE 2018-09 Yes [id number] 100mg TAKE 1 [facility] 100 mg 0-08 TABLET BY ity of tablet 00:00: MOUTH AT [place] 00 BEDTIME. Medical FOR Branch INSOMNIA. TRAZODONE 2018-09 Yes [id number] 100mg TAKE 1 [facility] 100 mg 0-08 TABLET BY ity of tablet 00:00: MOUTH AT [place] 00 BEDTIME. Medical FOR Branch INSOMNIA. TRAZODONE 2018-09 Yes [id number] 100mg TAKE 1 [facility] 100 mg 0-08 TABLET BY ity of tablet 00:00: MOUTH AT [place] 00 BEDTIME. Medical FOR Branch INSOMNIA. TRAZODONE 2018-09 Yes [id number] 100mg TAKE 1 [facility] 100 mg 0-08 TABLET BY ity of tablet 00:00: MOUTH AT [place] 00 BEDTIME. Medical FOR Branch INSOMNIA. TRAZODONE 2018-09 Yes [id number] 100mg TAKE 1 [facility] 100 mg 0-08 TABLET BY ity of tablet 00:00: MOUTH AT [place] 00 BEDTIME. Medical FOR Branch INSOMNIA. TRAZODONE 2018-09 Yes [id number] 100mg TAKE 1 [facility] 100 mg 0-08 TABLET BY ity of tablet 00:00: MOUTH AT [place] 00 BEDTIME. Medical FOR Branch INSOMNIA. TRAZODONE 2018-09 Yes [id number] 100mg TAKE 1 [facility] 100 mg 0-08 TABLET BY ity of tablet 00:00: MOUTH AT [place] 00 BEDTIME. Medical FOR Branch INSOMNIA. TRAZODONE 2018-09 Yes [id number] 100mg TAKE 1 [facility] 100 mg 0-08 TABLET BY ity of tablet 00:00: MOUTH AT [place] 00 BEDTIME. Medical FOR Branch INSOMNIA. TRAZODONE 2018-09 Yes [id number] 100mg TAKE 1 [facility] 100 mg 0-08 TABLET BY ity of tablet 00:00: MOUTH AT [place] [address] BEDTIME. Medical FOR Branch INSOMNIA. TRAZODONE 2018-09 Yes [id number] 100mg TAKE 1 [facility] 100 mg 0-08 TABLET BY ity of tablet 00:00: MOUTH AT [place] 00 BEDTIME. Medical FOR Branch INSOMNIA. TRAZODONE 2018-09 Yes [id number] 100mg TAKE 1 [facility] 100 mg 0-08 TABLET BY ity of tablet 00:00: MOUTH AT [place] 00 BEDTIME. Medical FOR Branch INSOMNIA. TRAZODONE 2018-09 2020- No [id number] 100mg TAKE 1 [facility] 100 mg 0-08 04-06 TABLET BY ity of tablet 00:00: 00:00 MOUTH AT [place] 00 :00 BEDTIME. Medical FOR Branch INSOMNIA. cyclobenzap Yes [id number] 10mg Take 1 [facility] rine 10 mg 9-30 tablet by ity of tablet 00:00: mouth 3 [place] 00 (three) Medical times Branch daily. cyclobenzap Yes [id number] 10mg Take 1 [facility] rine 10 mg 9-30 tablet by ity of tablet 00:00: mouth 3 (three) Medical times Branch daily. cyclobenzap Yes [id number] 10mg Take 1 [facility] rine 10 mg 9-30 tablet by ity of tablet 00:00: mouth 3 (three) Medical times Branch daily. cyclobenzap Yes [id number] 10mg Take 1 [facility] rine 10 mg 9-30 tablet by ity of tablet 00:00: mouth 3 (three) Medical times Branch daily. cyclobenzap Yes [id number] 10mg Take 1 [facility] rine 10 mg 9-30 tablet by ity of tablet 00:00: mouth 3 (three) Medical times Branch daily. cyclobenzap Yes [id number] 10mg Take 1 [facility] rine 10 mg 9-30 tablet by ity of tablet 00:00: mouth 3 (three) Medical times Branch daily. cyclobenzap Yes [id number] 10mg Take 1 [facility] rine 10 mg 9-30 tablet by ity of tablet 00:00: mouth (three) Medical times Branch daily. cyclobenzap Yes [id number] 10mg Take 1 [facility] rine 10 mg 9-30 tablet by ity of tablet 00:00: mouth (three) Medical times Branch daily. cyclobenzap Yes [id number] 10mg Take 1 [facility] rine 10 mg 9-30 tablet by ity of tablet 00:00: mouth 3 (three) Medical times Branch daily. cyclobenzap Yes [id number] 10mg Take 1 [facility] rine 10 mg 9-30 tablet by ity of tablet 00:00: mouth 3 (three) Medical times Branch daily. cyclobenzap Yes [id number] 10mg Take 1 [facility] rine 10 mg 9-30 tablet by ity of tablet 00:00: mouth 3 (three) Medical times Branch daily. cyclobenzap Yes [id number] 10mg Take 1 [facility] rine 10 mg 9-30 tablet by ity of tablet 00:00: mouth 3 [place] (three) Medical times Branch daily. cyclobenzap Yes [id number] 10mg Take 1 [facility] rine 10 mg 9-30 tablet by ity of tablet 00:00: mouth 3 (three) Medical times Branch daily. cyclobenzap Yes [id number] 10mg Take 1 [facility] rine 10 mg 9-30 tablet by ity of tablet 00:00: mouth 3 (three) Medical times Branch daily. cyclobenzap Yes [id number] 10mg Take 1 [facility] rine 10 mg 9-30 tablet by ity of tablet 00:00: mouth 3 (three) Medical times Branch daily. cyclobenzap Yes [id number] 10mg Take 1 [facility] rine 10 mg 9-30 tablet by ity of tablet 00:00: mouth 3 (three) Medical times Branch daily. cyclobenzap Yes [id number] 10mg Take 1 [facility] rine 10 mg 9-30 tablet by ity of tablet 00:00: mouth 3 (three) Medical times Branch daily. cyclobenzap Yes [id number] 10mg Take 1 [facility] rine 10 mg 9-30 tablet by ity of tablet 00:00: mouth 3 (three) Medical times Branch daily. cyclobenzap Yes [id number] 10mg Take 1 [facility] rine 10 mg 9-30 tablet by ity of tablet 00:00: mouth 3 (three) Medical times Branch daily. cyclobenzap Yes [id number] 10mg Take 1 [facility] rine 10 mg 9-30 tablet by [facility] tablet 00:00: mouth 3 (three) Medical times Branch daily. cyclobenzap Yes [id number] 10mg Take 1 [facility] rine 10 mg 9-30 tablet by [facility] tablet 00:00: mouth 3 (three) Medical times Branch daily. cyclobenzap Yes [id number] 10mg Take 1 [facility] rine 10 mg 9-30 tablet by [facility] tablet 00:00: mouth 3 (three) Medical times [facility] daily. cyclobenzap Yes [id number] 10mg Take 1 [facility] rine 10 mg 9-30 tablet by [facility] tablet 00:00: mouth 3 (three) Medical times [facility] daily. cyclobenzap Yes [id number] 10mg Take 1 [facility] rine 10 mg 9-30 tablet by [facility] tablet 00:00: mouth 3 (three) Medical times [facility] daily. cyclobenzap Yes [id number] 10mg Take 1 [facility] rine 10 mg 9-30 tablet by [facility] tablet 00:00: mouth 3 (three) Medical times [facility] daily. cyclobenzap Yes [id number] 10mg Take 1 [facility] rine 10 mg 9-30 tablet by [facility] tablet 00:00: mouth 3 (three) Medical times [facility] daily. cyclobenzap Yes [id number] 10mg Take 1 [facility] r[facility] 10 mg 9-30 tablet by [facility] tablet 00:00: mouth 3 (three) Medical times [facility] daily. cyclobenzap Yes [id number] 10mg Take 1 [facility] rine 10 mg 9-30 tablet by [facility] tablet 00:00: mouth 3 (three) Medical times [facility] daily. cyclobenzap Yes [id number] 10mg Take 1 [facility] rine 10 mg 9-30 tablet by [facility] tablet 00:00: mouth (three) Medical times [facility] daily. cyclobenzap Yes [id number] 10mg Take 1 [facility] rine 10 mg 9-30 tablet by [facility] tablet 00:00: mouth (three) Medical times [facility] daily. cyclobenzap Yes [id number] 10mg Take 1 [facility] rine 10 mg 9-30 tablet by [facility] tablet 00:00: mouth 3 (three) Medical times [facility] daily. cyclobenzap Yes [id number] 10mg Take 1 [facility] rine 10 mg 9-30 tablet by [facility] tablet 00:00: mouth 3 (three) Medical times [facility] daily. cyclobenzap Yes [id number] 10mg Take 1 [facility] r[facility] 10 mg 9-30 tablet by [facility] tablet 00:00: mouth 3 (three) Medical times [facility] daily. cyclobenzap Yes [id number] 10mg Take 1 [facility] r[facility] 10 mg 9-30 tablet by [facility] tablet 00:00: mouth 3 (three) Medical times [facility] daily. cyclobenzap Yes [id number] 10mg Take 1 [facility] rine 10 mg 9-30 tablet by [facility] tablet 00:00: mouth 3 [place] 00 (three) Medical times Branch daily. cyclobenzap Yes [id number] 10mg Take 1 [facility] rine 10 mg 9-30 tablet by [facility] tablet 00:00: mouth 3 [place] 00 (three) Medical times [facility] daily. cyclobenzap Yes [id number] 10mg Take 1 [facility] rine 10 mg 9-30 tablet by [facility] tablet 00:00: mouth 3 [place] 00 (three) Medical times [facility] daily. cyclobenzap Yes [id number] 10mg Take 1 [facility] rine 10 mg 9-30 tablet by [facility] tablet 00:00: mouth 3 00 (three) Medical times [facility] daily. cyclobenzap Yes [id number] 10mg Take 1 [facility] rine 10 mg 9-30 tablet by [facility] tablet 00:00: mouth 3 [place] 00 (three) Medical times [facility] daily. METFORMIN Yes [id number] TAKE 1 [facility] [place] [facility] 500 mg 9-30 TABLET BY [facility] o f 24 hr 00:00: MOUTH [place] tablet 00 EVERY DAY Medical WITH Branch BREAKFAST naproxen Yes [id number] 500mg Take 1 [facility] (NAPROSYN) 9-30 tablet by [facility] 500 mg 00:00: mouth 2 [place] tablet 00 (two) Medical times Branch daily with meals. cyclobenzap Yes [id number] 10mg Take 1 [facility] rine 10 mg 9-30 tablet by [facility] tablet 00:00: mouth 3 [place] 00 (three) Medical times [facility] daily. METFORMIN Yes [id number] TAKE 1 [facility] [place] [facility] 500 mg 9-30 TABLET BY [facility] o f 24 hr 00:00: MOUTH [place] tablet 00 EVERY DAY Medical WITH Branch BREAKFAST naproxen Yes [id number] 500mg Take 1 [facility] (NAPROSYN) 9-30 tablet by [facility] 500 mg 00:00: mouth 2 [place] tablet 00 (two) Medical times [facility] daily with meals. cyclobenzap Yes [id number] 10mg Take 1 [facility] rine 10 mg 9-30 tablet by [facility] tablet 00:00: mouth 3 [place] 00 (three) Medical times Branch daily. METFORMIN 2019- Yes [id number] TAKE 1 [facility] [place] [facility] 500 mg 9-30 TABLET BY [facility] o f 24 hr 00:00: MOUTH [place] tablet 00 EVERY DAY Medical WITH Branch BREAKFAST cyclobenzap Yes [id number] 10mg Take 1 [facility] r[facility] 10 mg 9-30 tablet by [facility] tablet 00:00: mouth 3 [place] 00 (three) Medical times Branch daily. METFORMIN 2018- Yes [id number] TAKE 1 [facility] [place] [facility] 500 mg 9-30 TABLET BY [facility] o f 24 hr 00:00: MOUTH [place] tablet 00 EVERY DAY Medical WITH Branch BREAKFAST cyclobenzap Yes [id number] 10mg Take 1 [facility] r[facility] 10 mg 9-30 tablet by [facility] tablet 00:00: mouth 3 [place] 00 (three) Medical times Branch daily. METFORMIN 2018- Yes [id number] TAKE 1 [facility] [place] [facility] 500 mg 9-30 TABLET BY [facility] o f 24 hr 00:00: MOUTH [place] tablet 00 EVERY DAY Medical WITH Branch BREAKFAST cyclobenzap Yes [id number] 10mg Take 1 [facility] r[facility] 10 mg 9-30 tablet by [facility] tablet 00:00: mouth 3 [place] 00 (three) Medical times Branch daily. METFORMIN Yes [id number] TAKE 1 [facility] [place] [facility] 500 mg 9-30 TABLET BY [facility] o f 24 hr 00:00: MOUTH [place] tablet 00 EVERY DAY Medical WITH Branch BREAKFAST cyclobenzap Yes [id number] 10mg Take 1 [facility] r[facility] 10 mg 9-30 tablet by [facility] tablet 00:00: mouth 3 [place] 00 (three) Medical times Branch daily. METFORMIN 2018- Yes [id number] TAKE 1 [facility] [place] [facility] 500 mg 9-30 TABLET BY [facility] o f 24 hr 00:00: MOUTH [place] tablet 00 EVERY DAY Medical WITH Branch BREAKFAST cyclobenzap Yes [id number] 10mg Take 1 [facility] rine 10 mg 9-30 tablet by [facility] tablet 00:00: mouth 3 [place] 00 (three) Medical times Branch daily. METFORMIN 2018- Yes [id number] TAKE 1 [facility] [place] [facility] 500 mg 9-30 TABLET BY [facility] o f 24 hr 00:00: MOUTH [place] tablet 00 EVERY DAY Medical WITH Branch BREAKFAST cyclobenzap Yes [id number] 10mg Take 1 [facility] r[facility] 10 mg 9-30 tablet by [facility] tablet 00:00: mouth 3 [place] 00 (three) Medical times Branch daily. METFORMIN 2018-0 Yes [id number] TAKE 1 [facility] [place] [facility] 500 mg 9-30 TABLET BY [facility] o f 24 hr 00:00: MOUTH [place] tablet 00 EVERY DAY Medical WITH Branch BREAKFAST cyclobenzap Yes [id number] 10mg Take 1 [facility] r[facility] 10 mg 9-30 tablet by [facility] tablet 00:00: mouth 3 [place] 00 (three) Medical times Branch daily. METFORMIN 2018- Yes [id number] TAKE 1 [facility] [place] [facility] 500 mg 9-30 TABLET BY [facility] o f 24 hr 00:00: MOUTH [place] tablet 00 EVERY DAY Medical WITH Branch BREAKFAST cyclobenzap Yes [id number] 10mg Take 1 [facility] r[facility] 10 mg 9-30 tablet by [facility] tablet 00:00: mouth 3 [place] 00 (three) Medical times Branch daily. METFORMIN Yes [id number] TAKE 1 [facility] [place] [facility] 500 mg 9-30 TABLET BY [facility] o f 24 hr 00:00: MOUTH [place] tablet 00 EVERY DAY Medical WITH Branch BREAKFAST cyclobenzap Yes [id number] 10mg Take 1 [facility] rine 10 mg 9-30 tablet by [facility] tablet 00:00: mouth 3 [place] 00 (three) Medical times Branch daily. METFORMIN 2018- Yes [id number] TAKE 1 [facility] [place] [facility] 500 mg 9-30 TABLET BY [facility] o f 24 hr 00:00: MOUTH [place] tablet 00 EVERY DAY Medical WITH Branch BREAKFAST cyclobenzap Yes [id number] 10mg Take 1 [facility] r[facility] 10 mg 9-30 tablet by [facility] tablet 00:00: mouth 3 [place] 00 (three) Medical times Branch daily. METFORMIN 2018-0 Yes [id number] TAKE 1 [facility] [place] [facility] 500 mg 9-30 TABLET BY [facility] o f 24 hr 00:00: MOUTH [place] tablet 00 EVERY DAY Medical WITH Branch BREAKFAST cyclobenzap Yes [id number] 10mg Take 1 [facility] r[facility] 10 mg 9-30 tablet by [facility] tablet 00:00: mouth 3 [place] 00 (three) Medical times Branch daily. METFORMIN 2018-0 Yes [id number] TAKE 1 [facility] [place] [facility] 500 mg 9-30 TABLET BY [facility] o f 24 hr 00:00: MOUTH [place] tablet 00 EVERY DAY Medical WITH Branch BREAKFAST cyclobenzap Yes [id number] 10mg Take 1 [facility] 10 mg 9-30 tablet by [facility] tablet 00:00: mouth 3 [place] 00 (three) Medical times Branch daily. cyclobenzap Yes [id number] 10mg Take 1 [facility] 10 mg 9-30 tablet by [facility] tablet 00:00: mouth 3 [place] 00 (three) Medical times [facility] daily. cyclobenzap Yes [id number] 10mg Take 1 [facility] r[facility] 10 mg 9-30 tablet by [facility] tablet 00:00: mouth 3 [place] 00 (three) Medical times [facility] daily. cyclobenzap 2020- No [id number] 10mg Take 1 [facility] r[facility] 10 mg 9-30 10-05 tablet by [facility] tablet 00:00: 00:00 mouth 3 [place] 00 :00 (three) Medical times Branch daily. cyclobenzap 2020- No [id number] 10mg Take 1 [facility] r[facility] 10 mg 9-30 10-05 tablet by [facility] tablet 00:00: 00:00 mouth 3 [place] 00 :00 (three) Medical times Branch daily. METFORMIN 2020- No [id number] TAKE 1 [facility] ER 500 mg 9-30 03-24 TABLET BY [facility] 24 hr 00:00: 00:00 MOUTH [place] tablet 00 :00 EVERY DAY Medical WITH Branch BREAKFAST METFORMIN 2020- No [id number] TAKE 1 [facility] 500 mg 9-30 03-24 TABLET BY [facility] 24 hr 00:00: 00:00 MOUTH [place] tablet 00 :00 EVERY DAY Medical WITH Branch BREAKFAST naproxen 2020- No [id number] 500mg Take 1 [facility] (NAPROSYN) 9-30 02-13 tablet by [facility] 500 mg 00:00: 00:00 mouth 2 [place] tablet 00 :00 (two) Medical times Branch daily with meals. naproxen 2020- No [id number] 500mg Take 1 [facility] (NAPROSYN) 9-30 02-13 tablet by [facility] 500 mg 00:00: 00:00 mouth 2 [place] tablet 00 :00 (two) Medical times Branch daily with meals. peg-electro Yes [id number] 4000mL Take 4,000 [facility] lyte soln 9-20 mL by [facility] of 236-22.74-6 00:00: mouth [place] .74 -5.86 00 SEE-INSTRU Medi kacey gram CTIONS. Branch solution Take as directed Diclofenac Yes [id number] Apply 2 to [facility] Sodium 1 % 9-16 4 grams [facility] of gel 00:00: 3-4 times [place] 00 daily as Medical needed. Branch Diclofenac Yes [id number] Apply 2 to [facility] Sodium 1 % 9-16 4 grams [facility] of gel 00:00: 3-4 times [place] 00 daily as Medical needed. Branch Diclofenac Yes [id number] Apply 2 to [facility] Sodium 1 % 9-16 4 grams [facility] of gel 00:00: 3-4 times [place] 00 daily as Medical needed. Branch Diclofenac Yes [id number] Apply 2 to [facility] Sodium 1 % 9-16 4 grams [facility] of gel 00:00: 3-4 times [place] 00 daily as Medical needed. Branch Diclofenac Yes [id number] Apply 2 to [facility] Sodium 1 % 9-16 4 grams [facility] of gel 00:00: 3-4 times [place] 00 daily as Medical needed. Branch Diclofenac Yes [id number] Apply 2 to [facility] Sodium 1 % 9-16 4 grams [facility] of gel 00:00: 3-4 times [place] 00 daily as Medical needed. Branch Diclofenac Yes [id number] Apply 2 to [facility] Sodium 1 % 9-16 4 grams [facility] of gel 00:00: 3-4 times [place] 00 daily as Medical needed. Branch Diclofenac Yes [id number] Apply 2 to [facility] Sodium 1 % 9-16 4 grams [facility] of gel 00:00: 3-4 times [place] 00 daily as Medical needed. Branch Diclofenac Yes [id number] Apply 2 to [facility] Sodium 1 % 9-16 4 grams [facility] of gel 00:00: 3-4 times [place] 00 daily as Medical needed. Branch Diclofenac Yes [id number] Apply 2 to [facility] Sodium 1 % 9-16 4 grams [facility] of gel 00:00: 3-4 times [place] 00 daily as Medical needed. Branch Diclofenac Yes [id number] Apply 2 to [facility] Sodium 1 % 9-16 4 grams [facility] of gel 00:00: 3-4 times [place] 00 daily as Medical needed. Branch Diclofenac Yes [id number] Apply 2 to [facility] Sodium 1 % 9-16 4 grams [facility] of gel 00:00: 3-4 times [place] 00 daily as Medical needed. Branch Diclofenac Yes [id number] Apply 2 to [facility] Sodium 1 % 9-16 4 grams [facility] of gel 00:00: 3-4 times [place] 00 daily as Medical needed. Branch Diclofenac Yes [id number] Apply 2 to [facility] Sodium 1 % 9-16 4 grams [facility] of gel 00:00: 3-4 times [place] 00 daily as Medical needed. Branch Diclofenac Yes [id number] Apply 2 to [facility] Sodium 1 % 9-16 4 grams [facility] of gel 00:00: 3-4 times [place] 00 daily as Medical needed. Branch Diclofenac Yes [id number] Apply 2 to [facility] Sodium 1 % 9-16 4 grams [facility] of gel 00:00: 3-4 times [place] 00 daily as Medical needed. Branch Diclofenac Yes [id number] Apply 2 to [facility] Sodium 1 % 9-16 4 grams [facility] of gel 00:00: 3-4 times [place] 00 daily as Medical needed. Branch Diclofenac Yes [id number] Apply 2 to [facility] Sodium 1 % 9-16 4 grams [facility] of gel 00:00: 3-4 times [place] 00 daily as Medical needed. Branch Diclofenac Yes [id number] Apply 2 to [facility] Sodium 1 % 9-16 4 grams [facility] of gel 00:00: 3-4 times [place] 00 daily as Medical needed. Branch Diclofenac Yes [id number] Apply 2 to [facility] Sodium 1 % 9-16 4 grams [facility] of gel 00:00: 3-4 times [place] 00 daily as Medical needed. Branch Diclofenac Yes [id number] Apply 2 to [facility] Sodium 1 % 9-16 4 grams [facility] of gel 00:00: 3-4 times [place] 00 daily as Medical needed. Branch Diclofenac Yes [id number] Apply 2 to [facility] Sodium 1 % 9-16 4 grams [facility] of gel 00:00: 3-4 times [place] 00 daily as Medical needed. Branch Diclofenac Yes [id number] Apply 2 to [facility] Sodium 1 % 9-16 4 grams [facility] of gel 00:00: 3-4 times [place] 00 daily as Medical needed. Branch Diclofenac Yes [id number] Apply 2 to [facility] Sodium 1 % 9-16 4 grams [facility] of gel 00:00: 3-4 times [place] 00 daily as Medical needed. Branch Diclofenac Yes [id number] Apply 2 to [facility] Sodium 1 % 9-16 4 grams [facility] of gel 00:00: 3-4 times [place] 00 daily as Medical needed. Branch Diclofenac Yes [id number] Apply 2 to [facility] Sodium 1 % 9-16 4 grams [facility] of gel 00:00: 3-4 times [place] 00 daily as Medical needed. Branch Diclofenac Yes [id number] Apply 2 to [facility] Sodium 1 % 9-16 4 grams [facility] of gel 00:00: 3-4 times [place] 00 daily as Medical needed. Branch Diclofenac Yes [id number] Apply 2 to [facility] Sodium 1 % 9-16 4 grams [facility] of gel 00:00: 3-4 times [place] 00 daily as Medical needed. Branch Diclofenac Yes [id number] Apply 2 to [facility] Sodium 1 % 9-16 4 grams [facility] of gel 00:00: 3-4 times [place] 00 daily as Medical needed. Branch Diclofenac Yes [id number] Apply 2 to [facility] Sodium 1 % 9-16 4 grams [facility] of gel 00:00: 3-4 times [place] 00 daily as Medical needed. Branch Diclofenac Yes [id number] Apply 2 to [facility] Sodium 1 % 9-16 4 grams [facility] of gel 00:00: 3-4 times [place] 00 daily as Medical needed. Branch Diclofenac Yes [id number] Apply 2 to [facility] Sodium 1 % 9-16 4 grams [facility] of gel 00:00: 3-4 times [place] 00 daily as Medical needed. Branch Diclofenac Yes [id number] Apply 2 to [facility] Sodium 1 % 9-16 4 grams [facility] of gel 00:00: 3-4 times [place] 00 daily as Medical needed. Branch Diclofenac Yes [id number] Apply 2 to [facility] Sodium 1 % 9-16 4 grams [facility] of gel 00:00: 3-4 times [place] 00 daily as Medical needed. Branch Diclofenac Yes [id number] Apply 2 to [facility] Sodium 1 % 9-16 4 grams [facility] of gel 00:00: 3-4 times [place] 00 daily as Medical needed. Branch Diclofenac Yes [id number] Apply 2 to [facility] Sodium 1 % 9-16 4 grams [facility] of gel 00:00: 3-4 times [place] 00 daily as Medical needed. Branch Diclofenac Yes [id number] Apply 2 to [facility] Sodium 1 % 9-16 4 grams it[facility] of gel 00:00: 3-4 times [place] 00 daily as Medical needed. Branch Diclofenac Yes [id number] Apply 2 to [facility] Sodium 1 % 9-16 4 grams [facility] of gel 00:00: 3-4 times [place] 00 daily as Medical needed. Branch Diclofenac Yes [id number] Apply 2 to [facility] Sodium 1 % 9-16 4 grams ity of gel 00:00: 3-4 times [place] 00 daily as Medical needed. Branch Diclofenac Yes [id number] Apply 2 to [facility] Sodium 1 % 9-16 4 grams ity of gel 00:00: 3-4 times [place] 00 daily as Medical needed. Branch Diclofenac Yes [id number] Apply 2 to [facility] Sodium 1 % 9-16 4 grams ity of gel 00:00: 3-4 times [place] 00 daily as Medical needed. Branch Diclofenac Yes [id number] Apply 2 to [facility] Sodium 1 % 9-16 4 grams ity of gel 00:00: 3-4 times [place] 00 daily as Medical needed. Branch Diclofenac Yes [id number] Apply 2 to [facility] Sodium 1 % 9-16 4 grams ity of gel 00:00: 3-4 times [place] 00 daily as Medical needed. Branch Diclofenac Yes [id number] Apply 2 to [facility] Sodium 1 % 9-16 4 grams ity of gel 00:00: 3-4 times [place] 00 daily as Medical needed. Branch Diclofenac Yes [id number] Apply 2 to [facility] Sodium 1 % 9-16 4 grams ity of gel 00:00: 3-4 times [place] 00 daily as Medical needed. Branch Diclofenac Yes [id number] Apply 2 to [facility] Sodium 1 % 9-16 4 grams [facility]y of gel 00:00: 3-4 times [place] 00 daily as Medical needed. Branch Diclofenac Yes [id number] Apply 2 to [facility] Sodium 1 % 9-16 4 grams ity of gel 00:00: 3-4 times [place] 00 daily as Medical needed. Branch Diclofenac Yes [id number] Apply 2 to [facility] Sodium 1 % 9-16 4 grams ity of gel 00:00: 3-4 times [place] 00 daily as Medical needed. Branch Diclofenac Yes [id number] Apply 2 to [facility] Sodium 1 % 9-16 4 grams ity of gel 00:00: 3-4 times [place] 00 daily as Medical needed. Branch Diclofenac Yes [id number] Apply 2 to [facility] Sodium 1 % 9-16 4 grams ity of gel 00:00: 3-4 times [place] 00 daily as Medical needed. Branch Diclofenac Yes [id number] Apply 2 to [facility] Sodium 1 % 9-16 4 grams ity of gel 00:00: 3-4 times [place] 00 daily as Medical needed. Branch Diclofenac Yes [id number] Apply 2 to [facility] Sodium 1 % 9-16 4 grams ity of gel 00:00: 3-4 times [place] 00 daily as Medical needed. Branch Diclofenac Yes [id number] Apply 2 to [facility] Sodium 1 % 9-16 4 grams ity of gel 00:00: 3-4 times [place] 00 daily as Medical needed. Branch Diclofenac Yes [id number] Apply 2 to [facility] Sodium 1 % 9-16 4 grams ity of gel 00:00: 3-4 times [place] 00 daily as Medical needed. Branch Diclofenac Yes [id number] Apply 2 to [facility] Sodium 1 % 9-16 4 grams ity of gel 00:00: 3-4 times [place] 00 daily as Medical needed. Branch Diclofenac Yes [id number] Apply 2 to [facility] Sodium 1 % 9-16 4 grams ity of gel 00:00: 3-4 times [place] 00 daily as Medical needed. Branch Diclofenac Yes [id number] Apply 2 to [facility] Sodium 1 % 9-16 4 grams ity of gel 00:00: 3-4 times [place] 00 daily as Medical needed. Branch Diclofenac Yes [id number] Apply 2 to [facility] Sodium 1 % 9-16 4 grams ity of gel 00:00: 3-4 times [place] 00 daily as Medical needed. Branch Diclofenac Yes [id number] Apply 2 to [facility] Sodium 1 % 9-16 4 grams ity of gel 00:00: 3-4 times [place] 00 daily as Medical needed. Branch Diclofenac Yes [id number] Apply 2 to [facility] Sodium 1 % 9-16 4 grams ity of gel 00:00: 3-4 times [place] 00 daily as Medical needed. Branch Diclofenac Yes [id number] Apply 2 to [facility] Sodium 1 % 9-16 4 grams ity of gel 00:00: 3-4 times [place] 00 daily as Medical needed. Branch Diclofenac Yes [id number] Apply 2 to [facility] Sodium 1 % 9-16 4 grams ity of gel 00:00: 3-4 times [place] 00 daily as Medical needed. [place] Diclofenac Yes [id number] Apply 2 to [facility] Sodium 1 % 9-16 4 grams ity of gel 00:00: 3-4 times [place] 00 daily as Medical needed. [place] Diclofenac Yes [id number] Apply 2 to [facility] Sodium 1 % 9-16 4 grams ity of gel 00:00: 3-4 times [place] 00 daily as Medical needed. [place] Diclofenac Yes [id number] Apply 2 to [facility] Sodium 1 % 9-16 4 grams ity of gel 00:00: 3-4 times [place] 00 daily as Medical needed. [place] Diclofenac Yes [id number] Apply 2 to [facility] Sodium 1 % 9-16 4 grams ity of gel 00:00: 3-4 times [place] 00 daily as Medical needed. [place] Diclofenac Yes [id number] Apply 2 to [facility] Sodium 1 % 9-16 4 grams ity of gel 00:00: 3-4 times [place] 00 daily as Medical needed. [place] Diclofenac Yes [id number] Apply 2 to [facility] Sodium 1 % 9-16 4 grams ity of gel 00:00: 3-4 times [place] 00 daily as Medical needed. [place] Diclofenac Yes [id number] Apply 2 to [facility] Sodium 1 % 9-16 4 grams ity of gel 00:00: 3-4 times [place] 00 daily as Medical needed. [place] methocarbam Yes [id number] 750mg Take 1 [facility] ol 9-16 tablet by ity of (ROBAXIN-75 00:00: mouth 4 [place] as 0) 750 mg 00 (four) Medical tablet times [place] daily as needed for Pain (scale 1-3). Diclofenac Yes [id number] Apply 2 to [facility] Sodium 1 % 9-16 4 grams ity of gel 00:00: 3-4 times [place] 00 daily as Medical needed. [place] Diclofenac Yes [id number] Apply 2 to [facility] Sodium 1 % 9-16 4 grams ity of gel 00:00: 3-4 times [place] 00 daily as Medical needed. [place] Diclofenac Yes [id number] Apply 2 to [facility] Sodium 1 % 9-16 4 grams [facility]y of gel 00:00: 3-4 times [place] 00 daily as Medical needed. [place] Diclofenac Yes [id number] Apply 2 to [facility] Sodium 1 % 9-16 4 grams [facility]y of gel 00:00: 3-4 times [place] 00 daily as Medical needed. [place] Diclofenac Yes [id number] Apply 2 to [facility] Sodium 1 % 9-16 4 grams [facility]y of gel 00:00: 3-4 times [place] 00 daily as Medical needed. [place] Diclofenac Yes [id number] Apply 2 to [facility] Sodium 1 % 9-16 4 grams ity of gel 00:00: 3-4 times [place] 00 daily as Medical needed. [place] Diclofenac Yes [id number] Apply 2 to [facility] Sodium 1 % 9-16 4 grams ity of gel 00:00: 3-4 times [place] 00 daily as Medical needed. [place] Diclofenac Yes [id number] Apply 2 to [facility] Sodium 1 % 9-16 4 grams ity of gel 00:00: 3-4 times [place] 00 daily as Medical needed. [place] Diclofenac Yes [id number] Apply 2 to [facility] Sodium 1 % 9-16 4 grams ity of gel 00:00: 3-4 times [place] 00 daily as Medical needed. [place] Diclofenac Yes [id number] Apply 2 to [facility] Sodium 1 % 9-16 4 grams ity of gel 00:00: 3-4 times [place] 00 daily as Medical needed. [place] methocarbam Yes [id number] 750mg Take 1 [facility] ol 9-16 tablet by ity of (ROBAXIN-75 00:00: mouth 4 [place] 0) 750 mg 00 (four) Medical tablet times [place] daily as needed for Pain (scale 1-3). Diclofenac Yes [id number] Apply 2 to [facility] Sodium 1 % 9-16 4 grams ity of gel 00:00: 3-4 times [place] 00 daily as Medical needed. [place] Diclofenac Yes [id number] Apply 2 to [facility] Sodium 1 % 9-16 4 grams ity of gel 00:00: 3-4 times [place] 00 daily as Medical needed. [place] Diclofenac Yes [id number] Apply 2 to [facility] Sodium 1 % 9-16 4 grams ity of gel 00:00: 3-4 times [place] 00 daily as Medical needed. [place] Diclofenac Yes [id number] Apply 2 to [facility] Sodium 1 % 9-16 4 grams ity of gel 00:00: 3-4 times [place] 00 daily as Medical needed. [place] Diclofenac Yes [id number] Apply 2 to [facility] Sodium 1 % 9-16 4 grams ity of gel 00:00: 3-4 times [place] 00 daily as Medical needed. [place] Diclofenac Yes [id number] Apply 2 to [facility] Sodium 1 % 9-16 4 grams ity of gel 00:00: 3-4 times [place] 00 daily as Medical needed. [place] Diclofenac Yes [id number] Apply 2 to [facility] Sodium 1 % 9-16 4 grams ity of gel 00:00: 3-4 times [place] 00 daily as Medical needed. [place] Diclofenac Yes [id number] Apply 2 to [facility] Sodium 1 % 9-16 4 grams ity of gel 00:00: 3-4 times [place] 00 daily as Medical needed. [place] Diclofenac Yes [id number] Apply 2 to [facility] Sodium 1 % 9-16 4 grams ity of gel 00:00: 3-4 times [place] 00 daily as Medical needed. [place] Diclofenac Yes [id number] Apply 2 to [facility] Sodium 1 % 9-16 4 grams ity of gel 00:00: 3-4 times [place] 00 daily as Medical needed. [place] methocarbam Yes [id number] 750mg Take 1 [facility] ol 9-16 tablet by ity of (ROBAXIN-75 00:00: mouth 4 [place] 0) 750 mg 00 (four) Medical tablet times [place] daily as needed for Pain (scale 1-3). Diclofenac Yes [id number] Apply 2 to [facility] Sodium 1 % 9-16 4 grams ity of gel 00:00: 3-4 times [place] 00 daily as Medical needed. [place] Diclofenac Yes [id number] Apply 2 to [facility] Sodium 1 % 9-16 4 grams ity of gel 00:00: 3-4 times [place] 00 daily as Medical needed. [place] Diclofenac Yes [id number] Apply 2 to [facility] Sodium 1 % 9-16 4 grams ity of gel 00:00: 3-4 times [place] 00 daily as Medical needed. [place] Diclofenac Yes [id number] Apply 2 to [facility] Sodium 1 % 9-16 4 grams ity of gel 00:00: 3-4 times [place] 00 daily as Medical needed. [place] Diclofenac Yes [id number] Apply 2 to [facility] Sodium 1 % 9-16 4 grams ity of gel 00:00: 3-4 times [place] 00 daily as Medical needed. [place] Diclofenac Yes [id number] Apply 2 to [facility] Sodium 1 % 9-16 4 grams ity of gel 00:00: 3-4 times [place] 00 daily as Medical needed. [place] Diclofenac Yes [id number] Apply 2 to [facility] Sodium 1 % 9-16 4 grams ity of gel 00:00: 3-4 times [place] 00 daily as Medical needed. [place] Diclofenac Yes [id number] Apply 2 to [facility] Sodium 1 % 9-16 4 grams ity of gel 00:00: 3-4 times [place] 00 daily as Medical needed. [place] methocarbam Yes [id number] 750mg Take 1 [facility] ol 9-16 tablet by ity of (ROBAXIN-75 00:00: mouth 4 [place] 0) 750 mg 00 (four) Medical tablet times [facility] daily as needed for Pain (scale 1-3). Diclofenac Yes [id number] Apply 2 to [facility] Sodium 1 % 9-16 4 grams ity of gel 00:00: 3-4 times [place] 00 daily as Medical needed. [place] Diclofenac Yes [id number] Apply 2 to [facility] Sodium 1 % 9-16 4 grams ity of gel 00:00: 3-4 times [place] 00 daily as Medical needed. [place] Diclofenac Yes [id number] Apply 2 to [facility] Sodium 1 % 9-16 4 grams ity of gel 00:00: 3-4 times [place] 00 daily as Medical needed. [place] Diclofenac Yes [id number] Apply 2 to [facility] Sodium 1 % 9-16 4 grams ity of gel 00:00: 3-4 times [place] 00 daily as Medical needed. [place] Diclofenac Yes [id number] Apply 2 to [facility] Sodium 1 % 9-16 4 grams ity of gel 00:00: 3-4 times [place] 00 daily as Medical needed. [place] Diclofenac Yes [id number] Apply 2 to [facility] Sodium 1 % 9-16 4 grams ity of gel 00:00: 3-4 times [place] 00 daily as Medical needed. [place] Diclofenac Yes [id number] Apply 2 to [facility] Sodium 1 % 9-16 4 grams ity of gel 00:00: 3-4 times [place] 00 daily as Medical needed. [place] Diclofenac Yes [id number] Apply 2 to [facility] Sodium 1 % 9-16 4 grams ity of gel 00:00: 3-4 times [place] 00 daily as Medical needed. [place] methocarbam Yes [id number] 750mg Take 1 [facility] ol 9-16 tablet by ity of (ROBAXIN-75 00:00: mouth 4 [place] as 0) 750 mg 00 (four) Medical tablet times [facility] daily as needed for Pain (scale 1-3). Diclofenac Yes [id number] Apply 2 to [facility] Sodium 1 % 9-16 4 grams ity of gel 00:00: 3-4 times [place] 00 daily as Medical needed. [place] Diclofenac Yes [id number] Apply 2 to [facility] Sodium 1 % 9-16 4 grams ity of gel 00:00: 3-4 times [place] 00 daily as Medical needed. [place] Diclofenac Yes [id number] Apply 2 to [facility] Sodium 1 % 9-16 4 grams ity of gel 00:00: 3-4 times [place] 00 daily as Medical needed. [place] Diclofenac Yes [id number] Apply 2 to [facility] Sodium 1 % 9-16 4 grams ity of gel 00:00: 3-4 times [place] 00 daily as Medical needed. [place] Diclofenac Yes [id number] Apply 2 to [facility] Sodium 1 % 9-16 4 grams ity of gel 00:00: 3-4 times [place] 00 daily as Medical needed. [place] Diclofenac Yes [id number] Apply 2 to [facility] Sodium 1 % 9-16 4 grams ity of gel 00:00: 3-4 times [place] 00 daily as Medical needed. [place] Diclofenac Yes [id number] Apply 2 to [facility] Sodium 1 % 9-16 4 grams ity of gel 00:00: 3-4 times [place] 00 daily as Medical needed. [place] methocarbam Yes [id number] 750mg Take 1 [facility] ol 9-16 tablet by ity of (ROBAXIN-75 00:00: mouth 4 [place] as 0) 750 mg 00 (four) Medical tablet times [place] daily as needed for Pain (scale 1-3). Diclofenac Yes [id number] Apply 2 to [facility] Sodium 1 % 9-16 4 grams ity of gel 00:00: 3-4 times [place] 00 daily as Medical needed. [place] Diclofenac Yes [id number] Apply 2 to [facility] Sodium 1 % 9-16 4 grams ity of gel 00:00: 3-4 times [place] 00 daily as Medical needed. [facility] Diclofenac Yes [id number] Apply 2 to [facility] Sodium 1 % 9-16 4 grams ity of gel 00:00: 3-4 times [place] 00 daily as Medical needed. [facility] Diclofenac Yes [id number] Apply 2 to [facility] Sodium 1 % 9-16 4 grams ity of gel 00:00: 3-4 times [place] 00 daily as Medical needed. [facility] Diclofenac Yes [id number] Apply 2 to [facility] Sodium 1 % 9-16 4 grams ity of gel 00:00: 3-4 times [place] 00 daily as Medical needed. Branch Diclofenac Yes [id number] Apply 2 to [facility] Sodium 1 % 9-16 4 grams it[facility] of gel 00:00: 3-4 times [place] 00 daily as Medical needed. Branch Diclofenac Yes [id number] Apply 2 to [facility] Sodium 1 % 9-16 4 grams ity of gel 00:00: 3-4 times [place] 00 daily as Medical needed. Branch Diclofenac Yes [id number] Apply 2 to [facility] Sodium 1 % 9-16 4 grams it[facility] of gel 00:00: 3-4 times [place] 00 daily as Medical needed. [facility] Diclofenac Yes [id number] Apply 2 to [facility] Sodium 1 % 9-16 4 grams it[facility] of gel 00:00: 3-4 times [place] 00 daily as Medical needed. Branch Diclofenac Yes [id number] Apply 2 to [facility] Sodium 1 % 9-16 4 grams ity of gel 00:00: 3-4 times [place] 00 daily as Medical needed. Branch Diclofenac Yes [id number] Apply 2 to [facility] Sodium 1 % 9-16 4 grams it[facility] of gel 00:00: 3-4 times [place] 00 daily as Medical needed. Branch Diclofenac Yes [id number] Apply 2 to [facility] Sodium 1 % 9-16 4 grams it[facility] of gel 00:00: 3-4 times [place] 00 daily as Medical needed. [facility] Diclofenac Yes [id number] Apply 2 to [facility] Sodium 1 % 9-16 4 grams it[facility] of gel 00:00: 3-4 times [place] 00 daily as Medical needed. [facility] Diclofenac Yes [id number] Apply 2 to [facility] Sodium 1 % 9-16 4 grams it[facility] of gel 00:00: 3-4 times [place] 00 daily as Medical needed. [facility] Diclofenac Yes [id number] Apply 2 to [facility] Sodium 1 % 9-16 4 grams it[facility] of gel 00:00: 3-4 times [place] 00 daily as Medical needed. Branch Diclofenac Yes [id number] Apply 2 to [facility] Sodium 1 % 9-16 4 grams ity of gel 00:00: 3-4 times [place] 00 daily as Medical needed. [facility] Diclofenac Yes [id number] Apply 2 to [facility] Sodium 1 % 9-16 4 grams it[facility] of gel 00:00: 3-4 times [place] 00 daily as Medical needed. [facility] Diclofenac Yes [id number] Apply 2 to [facility] Sodium 1 % 9-16 4 grams ity of gel 00:00: 3-4 times [place] 00 daily as Medical needed. [facility] Diclofenac Yes [id number] Apply 2 to [facility] Sodium 1 % 9-16 4 grams ity of gel 00:00: 3-4 times [place] 00 daily as Medical needed. [facility] Diclofenac Yes [id number] Apply 2 to [facility] Sodium 1 % 9-16 4 grams it[facility] of gel 00:00: 3-4 times [place] 00 daily as Medical needed. [facility] Diclofenac Yes [id number] Apply 2 to [facility] Sodium 1 % 9-16 4 grams it[facility] of gel 00:00: 3-4 times [place] 00 daily as Medical needed. [facility] Diclofenac Yes [id number] Apply 2 to [facility] Sodium 1 % 9-16 4 grams ity of gel 00:00: 3-4 times [place] 00 daily as Medical needed. [facility] Diclofenac Yes [id number] Apply 2 to [facility] Sodium 1 % 9-16 4 grams ity of gel 00:00: 3-4 times [place] 00 daily as Medical needed. [facility] Diclofenac Yes [id number] Apply 2 to [facility] Sodium 1 % 9-16 4 grams it[facility] of gel 00:00: 3-4 times [place] 00 daily as Medical needed. Branch Diclofenac Yes [id number] Apply 2 to [facility] Sodium 1 % 9-16 4 grams ity of gel 00:00: 3-4 times [place] 00 daily as Medical needed. [facility] Diclofenac Yes [id number] Apply 2 to [facility] Sodium 1 % 9-16 4 grams ity of gel 00:00: 3-4 times [place] 00 daily as Medical needed. [facility] Diclofenac Yes [id number] Apply 2 to [facility] Sodium 1 % 9-16 4 grams it[facility] of gel 00:00: 3-4 times [place] 00 daily as Medical needed. Branch Diclofenac Yes [id number] Apply 2 to [facility] Sodium 1 % 9-16 4 grams it[facility] of gel 00:00: 3-4 times [place] 00 daily as Medical needed. Branch Diclofenac Yes [id number] Apply 2 to [facility] Sodium 1 % 9-16 4 grams [facility] of gel 00:00: 3-4 times [place] 00 daily as Medical needed. Branch Diclofenac Yes [id number] Apply 2 to [facility] Sodium 1 % 9-16 4 grams it[facility] of gel 00:00: 3-4 times [place] 00 daily as Medical needed. Branch TIZANIDINE Yes [id number] 2mg TAKE 1-2 [facility] 2 mg tablet 7-24 TABLETS BY it y of 00:00: MOUTH [place] 00 EVERY 8 Medical (EIGHT) Branch HOURS NEEDED (MUSCLE PAIN OR SPASM). TIZANIDINE Yes [id number] 2mg TAKE 1-2 [facility] 2 mg tablet 7-24 TABLETS BY it y of 00:00: MOUTH [place] 00 EVERY 8 Medical (EIGHT) Branch HOURS NEEDED (MUSCLE PAIN OR SPASM). TIZANIDINE Yes [id number] 2mg TAKE 1-2 [facility] 2 mg tablet 7-24 TABLETS BY it y of 00:00: MOUTH [place] 00 EVERY 8 Medical (EIGHT) Branch HOURS NEEDED (MUSCLE PAIN OR SPASM). TIZANIDINE Yes [id number] 2mg TAKE 1-2 [facility] 2 mg tablet 7-24 TABLETS BY it y of 00:00: MOUTH [place] 00 EVERY 8 Medical (EIGHT) Branch HOURS NEEDED (MUSCLE PAIN OR SPASM). TIZANIDINE Yes [id number] 2mg TAKE 1-2 [facility] 2 mg tablet 7-24 TABLETS BY it y of 00:00: MOUTH [place] 00 EVERY 8 Medical (EIGHT) Branch HOURS NEEDED (MUSCLE PAIN OR SPASM). TIZANIDINE Yes [id number] 2mg TAKE 1-2 [facility] 2 mg tablet 7-24 TABLETS BY it y of 00:00: MOUTH [place] 00 EVERY 8 Medical (EIGHT) Branch HOURS NEEDED (MUSCLE PAIN OR SPASM). TIZANIDINE 2019-0 Yes [id number] 2mg TAKE 1-2 [facility] 2 mg tablet 7-24 TABLETS BY it y of 00:00: MOUTH [place] 00 EVERY 8 Medical (EIGHT) Branch HOURS NEEDED (MUSCLE PAIN OR SPASM). TIZANIDINE 2019-0 Yes [id number] 2mg TAKE 1-2 [facility] 2 mg tablet 7-24 TABLETS BY it y of 00:00: MOUTH [place] 00 EVERY 8 Medical (EIGHT) Branch HOURS NEEDED (MUSCLE PAIN OR SPASM). TIZANIDINE 2019-0 Yes [id number] 2mg TAKE 1-2 [facility] 2 mg tablet 7-24 TABLETS BY it y of 00:00: MOUTH [place] 00 EVERY 8 Medical (EIGHT) Branch HOURS NEEDED (MUSCLE PAIN OR SPASM). TIZANIDINE 2019-0 Yes [id number] 2mg TAKE 1-2 [facility] 2 mg tablet 7-24 TABLETS BY it y of 00:00: MOUTH [place] 00 EVERY 8 Medical (EIGHT) Branch HOURS NEEDED (MUSCLE PAIN OR SPASM). TIZANIDINE 2019-0 Yes [id number] 2mg TAKE 1-2 [facility] 2 mg tablet 7-24 TABLETS BY it y of 00:00: MOUTH [place] 00 EVERY 8 Medical (EIGHT) Branch HOURS NEEDED (MUSCLE PAIN OR SPASM). TIZANIDINE 2019-0 Yes [id number] 2mg TAKE 1-2 [facility] 2 mg tablet 7-24 TABLETS BY it y of 00:00: MOUTH [place] 00 EVERY 8 Medical (EIGHT) Branch HOURS NEEDED (MUSCLE PAIN OR SPASM). TIZANIDINE 2019-0 Yes [id number] 2mg TAKE 1-2 [facility] 2 mg tablet 7-24 TABLETS BY it y of 00:00: MOUTH [place] 00 EVERY 8 Medical (EIGHT) Branch HOURS NEEDED (MUSCLE PAIN OR SPASM). ibandronate 2019-0 Yes [id number] 150mg Take 1 [facility] 150 mg 7-23 tablet by [facility] of tablet 00:00: mouth once [place] 00 every Medical month. Branch ibandronate 2019-0 Yes [id number] 150mg Take 1 [facility] 150 mg 7-23 tablet by [facility] of tablet 00:00: mouth once [place] 00 every Medical month. Branch ibandronate 2019-0 Yes [id number] 150mg Take 1 [facility] 150 mg 7-23 tablet by ity of tablet 00:00: mouth once [place] 00 every Medical month. Branch ibandronate 2019-0 Yes [id number] 150mg Take 1 [facility] 150 mg 7-23 tablet by [facility] of tablet 00:00: mouth once [place] 00 every Medical month. Branch ibandronate 2019-0 Yes [id number] 150mg Take 1 [facility] 150 mg 7-23 tablet by it[facility] of tablet 00:00: mouth once [place] 00 every Medical month. [facility] ibandronate 2019-0 Yes [id number] 150mg Take 1 [facility] 150 mg 7-23 tablet by [facility] of tablet 00:00: mouth once [place] 00 every Medical month. Branch ibandronate 2019-0 Yes [id number] 150mg Take 1 [facility] 150 mg 7-23 tablet by [facility] of tablet 00:00: mouth once [place] 00 every Medical month. [facility] ibandronate 2019-0 Yes [id number] 150mg Take 1 [facility] 150 mg 7-23 tablet by [facility] of tablet 00:00: mouth once [place] 00 every Medical month. [facility] ibandronate 2019-0 Yes [id number] 150mg Take 1 [facility] 150 mg 7-23 tablet by [facility] of tablet 00:00: mouth once [place] 00 every Medical month. [facility] ibandronate 2019-0 Yes [id number] 150mg Take 1 [facility] 150 mg 7-23 tablet by [facility] of tablet 00:00: mouth once [place] 00 every Medical month. Branch ibandronate 2019-0 Yes [id number] 150mg Take 1 [facility] 150 mg 7-23 tablet by [facility] of tablet 00:00: mouth once [place] 00 every Medical month. [facility] ibandronate 2019-0 Yes [id number] 150mg Take 1 [facility] 150 mg 7-23 tablet by [facility] of tablet 00:00: mouth once [place] 00 every Medical month. [facility] ibandronate 2019-0 Yes [id number] 150mg Take 1 [facility] 150 mg 7-23 tablet by [facility] of tablet 00:00: mouth once [place] 00 every Medical month. [facility] ibandronate 2019-0 Yes [id number] 150mg Take 1 [facility] 150 mg 7-23 tablet by [facility] of tablet 00:00: mouth once [place] 00 every Medical month. [facility] ibandronate 2019-0 Yes [id number] 150mg Take 1 [facility] 150 mg 7-23 tablet by [facility] of tablet 00:00: mouth once [place] 00 every Medical month. [facility] ibandronate 2019-0 Yes [id number] 150mg Take 1 [facility] 150 mg 7-23 tablet by [facility] of tablet 00:00: mouth once [place] 00 every Medical month. Branch ibandronate 2019-0 Yes [id number] 150mg Take 1 [facility] 150 mg 7-23 tablet by [facility] of tablet 00:00: mouth once [place] 00 every Medical month. Branch ibandronate 2019-0 Yes [id number] 150mg Take 1 [facility] 150 mg 7-23 tablet by [facility] of tablet 00:00: mouth once [place] 00 every Medical month. [facility] ibandronate 2019-0 Yes [id number] 150mg Take 1 [facility] 150 mg 7-23 tablet by [facility] of tablet 00:00: mouth once [place] 00 every Medical month. [facility] ibandronate 2019-0 Yes [id number] 150mg Take 1 [facility] 150 mg 7-23 tablet by [facility] of tablet 00:00: mouth once [place] 00 every Medical month. [facility] ibandronate 2019-0 Yes [id number] 150mg Take 1 [facility] 150 mg 7-23 tablet by [facility] of tablet 00:00: mouth once [place] 00 every Medical month. [facility] ibandronate 2019-0 Yes [id number] 150mg Take 1 [facility] 150 mg 7-23 tablet by [facility] of tablet 00:00: mouth once [place] 00 every Medical month. Branch ibandronate 2019-0 Yes [id number] 150mg Take 1 [facility] 150 mg 7-23 tablet by [facility] of tablet 00:00: mouth once [place] 00 every Medical month. Branch ibandronate 2019-0 Yes [id number] 150mg Take 1 [facility] 150 mg 7-23 tablet by [facility] of tablet 00:00: mouth once [place] 00 every Medical month. Branch ibandronate 2019-0 Yes [id number] 150mg Take 1 [facility] 150 mg 7-23 tablet by [facility] of tablet 00:00: mouth once [place] 00 every Medical month. Branch ibandronate 2019-0 Yes [id number] 150mg Take 1 [facility] 150 mg 7-23 tablet by [facility] of tablet 00:00: mouth once [place] 00 every Medical month. [facility] ibandronate 2019-0 Yes [id number] 150mg Take 1 [facility] 150 mg 7-23 tablet by [facility] of tablet 00:00: mouth once [place] 00 every Medical month. [facility] ibandronate 2019-0 Yes [id number] 150mg Take 1 [facility] 150 mg 7-23 tablet by [facility] of tablet 00:00: mouth once [place] 00 every Medical month. [facility] ibandronate 2019-0 Yes [id number] 150mg Take 1 [facility] 150 mg 7-23 tablet by [facility] of tablet 00:00: mouth once [place] 00 every Medical month. [facility] ibandronate 2019-0 Yes [id number] 150mg Take 1 [facility] 150 mg 7-23 tablet by [facility] of tablet 00:00: mouth once [place] 00 every Medical month. [facility] ibandronate 2019-0 Yes [id number] 150mg Take 1 [facility] 150 mg 7-23 tablet by [facility] of tablet 00:00: mouth once [place] 00 every Medical month. [facility] ibandronate 2019-0 Yes [id number] 150mg Take 1 [facility] 150 mg 7-23 tablet by [facility] of tablet 00:00: mouth once [place] 00 every Medical month. Branch ibandronate 2019-0 Yes [id number] 150mg Take 1 [facility] 150 mg 7-23 tablet by [facility] of tablet 00:00: mouth once [place] 00 every Medical month. [facility] ibandronate 2019-0 Yes [id number] 150mg Take 1 [facility] 150 mg 7-23 tablet by [facility] of tablet 00:00: mouth once [place] 00 every Medical month. [facility] ibandronate 2019-0 Yes [id number] 150mg Take 1 [facility] 150 mg 7-23 tablet by [facility] of tablet 00:00: mouth once [place] 00 every Medical month. Branch ibandronate 2019-0 Yes [id number] 150mg Take 1 [facility] 150 mg 7-23 tablet by [facility] of tablet 00:00: mouth once [place] 00 every Medical month. [facility] ibandronate 2019-0 Yes [id number] 150mg Take 1 [facility] 150 mg 7-23 tablet by [facility] of tablet 00:00: mouth once [place] 00 every Medical month. [facility] ibandronate 2019-0 Yes [id number] 150mg Take 1 [facility] 150 mg 7-23 tablet by [facility] of tablet 00:00: mouth once [place] 00 every Medical month. Branch ibandronate 2019-0 Yes [id number] 150mg Take 1 [facility] 150 mg 7-23 tablet by [facility] of tablet 00:00: mouth once [place] 00 every Medical month. [facility] ibandronate 2019-0 Yes [id number] 150mg Take 1 [facility] 150 mg 7-23 tablet by [facility] of tablet 00:00: mouth once [place] 00 every Medical month. Branch ibandronate 2019-0 Yes [id number] 150mg Take 1 [facility] 150 mg 7-23 tablet by [facility]y of tablet 00:00: mouth once [place] [address] every Medical month. Branch ibandronate 2019-0 Yes [id number] 150mg Take 1 [facility] 150 mg 7-23 tablet by ity of tablet 00:00: mouth once [place] [address] every Medical month. Branch ibandronate 2019-0 Yes [id number] 150mg Take 1 [facility] 150 mg 7-23 tablet by [facility] of tablet 00:00: mouth once [place] [address] every Medical month. Branch ibandronate 2019-0 Yes [id number] 150mg Take 1 [facility] 150 mg 7-23 tablet by [facility] of tablet 00:00: mouth once [place] [address] every Medical month. Branch ibandronate 2019-0 Yes [id number] 150mg Take 1 [facility] 150 mg 7-23 tablet by [facility] of tablet 00:00: mouth once [place] [address] every Medical month. Branch ibandronate 2019-0 Yes [id number] 150mg Take 1 [facility] 150 mg 7-23 tablet by [facility] of tablet 00:00: mouth once [place] [address] every Medical month. Branch ibandronate 2019-0 Yes [id number] 150mg Take 1 [facility] 150 mg 7-23 tablet by [facility] of tablet 00:00: mouth once [place] [address] every Medical month. Branch ibandronate 2019-0 Yes [id number] 150mg Take 1 [facility] 150 mg 7-23 tablet by it[facility] of tablet 00:00: mouth once [place] [address] every Medical month. Branch ibandronate 2019-0 2020- No [id number] 150mg Take 1 [facility] 150 mg 7-23 07-31 tablet by ity of tablet 00:00: 00:[address] [facility] 00 :00 every Medical month. Branch amLODIPine 2019-0 Yes [id number] 5mg Take 1 [facility] n[facility] 5 mg tablet - tablet by ity of 00:00: mouth at [place] 00 bedtime. Medical Branch amLODIPine 2018-0 2019- No [id number] 5mg Take 1 [facility] 5 mg tablet 03-18 tablet by it y of 00:00: 00:00 mouth at [place] 00 :00 bedtime. Medical Branch amLODIPine 2018-0 2019- No [id number] 5mg Take 1 [facility] 5 mg tablet 03-18- tablet by it y of 00:00: 00:00 mouth at [place] 00 :00 bedtime. Medical Branch NEXIUM 40 2019-0 Yes [id number] 40mg TAKE 1 U nivers mg capsule 6-25 CAPSULE BY ity of 00:00: MOUTH [place] 00 DAILY WITH Medical BREAKFAST. Branch BRAND MEDICALLY NECESSARY. NEXIUM 40 2018-0 Yes [id number] 40mg TAKE 1 U nivers mg capsule 6-25 CAPSULE BY ity of 00:00: MOUTH [place] 00 DAILY WITH Medical BREAKFAST. Branch BRAND MEDICALLY NECESSARY. NEXIUM 40 2018-0 Yes [id number] 40mg TAKE 1 U nivers mg capsule 6-25 CAPSULE BY ity of 00:00: MOUTH [place] 00 DAILY WITH Medical BREAKFAST. Branch BRAND MEDICALLY NECESSARY. NEXIUM 40 Yes [id number] 40mg TAKE 1 U nivers mg capsule 6-25 CAPSULE BY ity of 00:00: MOUTH [place] 00 DAILY WITH Medical BREAKFAST. Branch BRAND MEDICALLY NECESSARY. NEXIUM 40 Yes [id number] 40mg TAKE 1 U nivers mg capsule 6-25 CAPSULE BY ity of 00:00: MOUTH [place] 00 DAILY WITH Medical BREAKFAST. Branch BRAND MEDICALLY NECESSARY. NEXIUM 40 Yes [id number] 40mg TAKE 1 U nivers mg capsule 6-25 CAPSULE BY ity of 00:00: MOUTH [place] 00 DAILY WITH Medical BREAKFAST. Branch BRAND MEDICALLY NECESSARY. NEXIUM 40 Yes [id number] 40mg TAKE 1 U nivers mg capsule 6-25 CAPSULE BY ity of 00:00: MOUTH [place] 00 DAILY WITH Medical BREAKFAST. Branch BRAND MEDICALLY NECESSARY. NEXIUM 40 0 Yes [id number] 40mg TAKE 1 U nivers mg capsule 6-25 CAPSULE BY ity of 00:00: MOUTH [place] 00 DAILY WITH Medical BREAKFAST. Branch BRAND MEDICALLY NECESSARY. NEXIUM 40 0 Yes [id number] 40mg TAKE 1 U nivers mg capsule 6-25 CAPSULE BY ity of 00:00: MOUTH [place] 00 DAILY WITH Medical BREAKFAST. Branch BRAND MEDICALLY NECESSARY. NEXIUM 40 2018-0 Yes [id number] 40mg TAKE 1 U nivers mg capsule 6-25 CAPSULE BY ity of 00:00: MOUTH [place] 00 DAILY WITH Medical BREAKFAST. Branch BRAND MEDICALLY NECESSARY. NEXIUM 40 2018-0 Yes [id number] 40mg TAKE 1 U nivers mg capsule 6-25 CAPSULE BY ity of 00:00: MOUTH [place] 00 DAILY WITH Medical BREAKFAST. Branch BRAND MEDICALLY NECESSARY. NEXIUM 40 2018-0 Yes [id number] 40mg TAKE 1 U nivers mg capsule 6-25 CAPSULE BY ity of 00:00: MOUTH [place] 00 DAILY WITH Medical BREAKFAST. Branch BRAND MEDICALLY NECESSARY. NEXIUM 40 2019-0 Yes [id number] 40mg TAKE 1 U nivers mg capsule 6-25 CAPSULE BY ity of 00:00: MOUTH [place] 00 DAILY WITH Medical BREAKFAST. Branch BRAND MEDICALLY NECESSARY. NEXIUM 40 2019-0 Yes [id number] 40mg TAKE 1 U nivers mg capsule 6-25 CAPSULE BY ity of 00:00: MOUTH [place] 00 DAILY WITH Medical BREAKFAST. Branch BRAND MEDICALLY NECESSARY. NEXIUM 40 2018-0 Yes [id number] 40mg TAKE 1 U nivers mg capsule 6-25 CAPSULE BY ity of 00:00: MOUTH [place] 00 DAILY WITH Medical BREAKFAST. Branch BRAND MEDICALLY NECESSARY. NEXIUM 40 2018-0 Yes [id number] 40mg TAKE 1 U [facility]ivers mg capsule 6-25 CAPSULE BY ity of 00:00: MOUTH [place] 00 DAILY WITH Medical BREAKFAST. Branch BRAND MEDICALLY NECESSARY. NEXIUM 40 0 Yes [id number] 40mg TAKE 1 U nivers mg capsule 6-25 CAPSULE BY ity of 00:00: MOUTH [place] 00 DAILY WITH Medical BREAKFAST. Branch BRAND MEDICALLY NECESSARY. NEXIUM 40 0 Yes [id number] 40mg TAKE 1 U nivers mg capsule 6-25 CAPSULE BY ity of 00:00: MOUTH [place] 00 DAILY WITH Medical BREAKFAST. Branch BRAND MEDICALLY NECESSARY. NEXIUM 40 2018-0 Yes [id number] 40mg TAKE 1 U nivers mg capsule 6-25 CAPSULE BY ity of 00:00: MOUTH [place] 00 DAILY WITH Medical BREAKFAST. Branch BRAND MEDICALLY NECESSARY. NEXIUM 40 2018-0 Yes [id number] 40mg TAKE 1 U nivers mg capsule 6-25 CAPSULE BY ity of 00:00: MOUTH [place] 00 DAILY WITH Medical BREAKFAST. Branch BRAND MEDICALLY NECESSARY. NEXIUM 40 2018-0 Yes [id number] 40mg TAKE 1 U [facility]ivers mg capsule 6-25 CAPSULE BY ity of 00:00: MOUTH [place] 00 DAILY WITH Medical BREAKFAST. Branch BRAND MEDICALLY NECESSARY. NEXIUM 40 2018-0 Yes [id number] 40mg TAKE 1 U [facility]ivers mg capsule 6-25 CAPSULE BY ity of 00:00: MOUTH [place] 00 DAILY WITH Medical BREAKFAST. Branch BRAND MEDICALLY NECESSARY. NEXIUM 40 2018-0 Yes [id number] 40mg TAKE 1 U nivers mg capsule 6-25 CAPSULE BY ity of 00:00: MOUTH [place] 00 DAILY WITH Medical BREAKFAST. Branch BRAND MEDICALLY NECESSARY. NEXIUM 40 2019-0 Yes [id number] 40mg TAKE 1 U nivers mg capsule 6-25 CAPSULE BY ity of 00:00: MOUTH [place] 00 DAILY WITH Medical BREAKFAST. Branch BRAND MEDICALLY NECESSARY. NEXIUM 40 2019-0 Yes [id number] 40mg TAKE 1 U nivers mg capsule 6-25 CAPSULE BY ity of 00:00: MOUTH [place] 00 DAILY WITH Medical BREAKFAST. Branch BRAND MEDICALLY NECESSARY. NEXIUM 40 2018-0 Yes [id number] 40mg TAKE 1 U nivers mg capsule 6-25 CAPSULE BY ity of 00:00: MOUTH [place] 00 DAILY WITH Medical BREAKFAST. Branch BRAND MEDICALLY NECESSARY. NEXIUM 40 2018-0 Yes [id number] 40mg TAKE 1 U nivers mg capsule 6-25 CAPSULE BY ity of 00:00: MOUTH [place] 00 DAILY WITH Medical BREAKFAST. Branch BRAND MEDICALLY NECESSARY. NEXIUM 40 2018-0 Yes [id number] 40mg TAKE 1 U nivers mg capsule 6-25 CAPSULE BY ity of 00:00: MOUTH [place] 00 DAILY WITH Medical BREAKFAST. Branch BRAND MEDICALLY NECESSARY. NEXIUM 40 0 Yes [id number] 40mg TAKE 1 U nivers mg capsule 6-25 CAPSULE BY ity of 00:00: MOUTH [place] 00 DAILY WITH Medical BREAKFAST. Branch BRAND MEDICALLY NECESSARY. NEXIUM 40 2018-0 Yes [id number] 40mg TAKE 1 U [facility]ivers mg capsule 6-25 CAPSULE BY ity of 00:00: MOUTH [place] 00 DAILY WITH Medical BREAKFAST. Branch BRAND MEDICALLY NECESSARY. NEXIUM 40 2018-0 Yes [id number] 40mg TAKE 1 U nivers mg capsule 6-25 CAPSULE BY ity of 00:00: MOUTH [place] 00 DAILY WITH Medical BREAKFAST. Branch BRAND MEDICALLY NECESSARY. NEXIUM 40 2018-0 Yes [id number] 40mg TAKE 1 U nivers mg capsule 6-25 CAPSULE BY ity of 00:00: MOUTH [place] 00 DAILY WITH Medical BREAKFAST. Branch BRAND MEDICALLY NECESSARY. NEXIUM 40 2018-0 Yes [id number] 40mg TAKE 1 U nivers mg capsule 6-25 CAPSULE BY ity of 00:00: MOUTH [place] 00 DAILY WITH Medical BREAKFAST. Branch BRAND MEDICALLY NECESSARY. NEXIUM 40 2018-0 Yes [id number] 40mg TAKE 1 U nivers mg capsule 6-25 CAPSULE BY ity of 00:00: MOUTH [place] 00 DAILY WITH Medical BREAKFAST. Branch BRAND MEDICALLY NECESSARY. NEXIUM 40 2019-0 Yes [id number] 40mg TAKE 1 U nivers mg capsule 6-25 CAPSULE BY ity of 00:00: MOUTH [place] 00 DAILY WITH Medical BREAKFAST. Branch BRAND MEDICALLY NECESSARY. NEXIUM 40 2019-0 Yes [id number] 40mg TAKE 1 U nivers mg capsule 6-25 CAPSULE BY ity of 00:00: MOUTH [place] 00 DAILY WITH Medical BREAKFAST. Branch BRAND MEDICALLY NECESSARY. NEXIUM 40 2018-0 Yes [id number] 40mg TAKE 1 U nivers mg capsule 6-25 CAPSULE BY ity of 00:00: MOUTH [place] 00 DAILY WITH Medical BREAKFAST. Branch BRAND MEDICALLY NECESSARY. NEXIUM 40 2019-0 Yes [id number] 40mg TAKE 1 U nivers mg capsule 6-25 CAPSULE BY ity of 00:00: MOUTH [place] 00 DAILY WITH Medical BREAKFAST. Branch BRAND MEDICALLY NECESSARY. NEXIUM 40 2018-0 Yes [id number] 40mg TAKE 1 U nivers mg capsule 6-25 CAPSULE BY ity of 00:00: MOUTH [place] 00 DAILY WITH Medical BREAKFAST. Branch BRAND MEDICALLY NECESSARY. NEXIUM 40 2018-0 Yes [id number] 40mg TAKE 1 U nivers mg capsule 6-25 CAPSULE BY ity of 00:00: MOUTH [place] 00 DAILY WITH Medical BREAKFAST. Branch BRAND MEDICALLY NECESSARY. NEXIUM 40 2018-0 Yes [id number] 40mg TAKE 1 U nivers mg capsule 6-25 CAPSULE BY ity of 00:00: MOUTH [place] 00 DAILY WITH Medical BREAKFAST. Branch BRAND MEDICALLY NECESSARY. NEXIUM 40 2018-0 Yes [id number] 40mg TAKE 1 U nivers mg capsule 6-25 CAPSULE BY ity of 00:00: MOUTH [place] 00 DAILY WITH Medical BREAKFAST. Branch BRAND MEDICALLY NECESSARY. NEXIUM 40 2018-0 Yes [id number] 40mg TAKE 1 U nivers mg capsule 6-25 CAPSULE BY ity of 00:00: MOUTH [place] 00 DAILY WITH Medical BREAKFAST. Branch BRAND MEDICALLY NECESSARY. NEXIUM 40 2019-0 Yes [id number] 40mg TAKE 1 U nivers mg capsule 6-25 CAPSULE BY ity of 00:00: MOUTH [place] 00 DAILY WITH Medical BREAKFAST. Branch BRAND MEDICALLY NECESSARY. NEXIUM 40 2019-0 Yes [id number] 40mg TAKE 1 U nivers mg capsule 6-25 CAPSULE BY ity of 00:00: MOUTH [place] 00 DAILY WITH Medical BREAKFAST. Branch BRAND MEDICALLY NECESSARY. NEXIUM 40 2019-0 Yes [id number] 40mg TAKE 1 U nivers mg capsule 6-25 CAPSULE BY ity of 00:00: MOUTH [place] 00 DAILY WITH Medical BREAKFAST. Branch BRAND MEDICALLY NECESSARY. NEXIUM 40 2019-0 Yes [id number] 40mg TAKE 1 [facility] nivers mg capsule 6-25 CAPSULE BY ity of 00:00: MOUTH [place] 00 DAILY WITH Medical BREAKFAST. Branch BRAND MEDICALLY NECESSARY. NEXIUM 40 2019-0 2020- No [id number] 40mg TAKE 1 [facility] mg capsule 6-25 07-28 CAPSULE BY it y of 00:00: 00:00 MOUTH [place] 00 :00 DAILY WITH Medical BREAKFAST. Branch BRAND MEDICALLY NECESSARY. TRIAMTERENE 2018-0 Yes [id number] TAKE 2 [facility] -HYDROCHLOR 5-30 TABLETS BY it y of OTHIAZID 00:00: MOUTH [place] 37.5-25 mg 00 DAILY. Medical tablet Branch TRIAMTERENE 0 Yes [id number] TAKE 2 [facility] -HYDROCHLOR 5-30 TABLETS BY it y of OTHIAZID 00:00: MOUTH [place] 37.5-25 mg 00 DAILY. Medical tablet Branch TRIAMTERENE 0 Yes [id number] TAKE 2 [facility] -HYDROCHLOR 5-30 TABLETS BY it y of OTHIAZID 00:00: MOUTH [place] 37.5-25 mg 00 DAILY. Medical tablet Branch TRIAMTERENE 0 Yes [id number] TAKE 2 [facility] -HYDROCHLOR 5-30 TABLETS BY it y of OTHIAZID 00:00: MOUTH [place] 37.5-25 mg 00 DAILY. Medical tablet Branch TRIAMTERENE 2018-0 Yes [id number] TAKE 2 [facility] -HYDROCHLOR 5-30 TABLETS BY it y of OTHIAZID 00:00: MOUTH [place] 37.5-25 mg 00 DAILY. Medical tablet Branch TRIAMTERENE 2019-0 Yes [id number] TAKE 2 [facility] -HYDROCHLOR 5-30 TABLETS BY it y of OTHIAZID 00:00: MOUTH [place] 37.5-25 mg 00 DAILY. Medical tablet Branch TRIAMTERENE 2018-0 Yes [id number] TAKE 2 [facility] -HYDROCHLOR 5-30 TABLETS BY it y of OTHIAZID 00:00: MOUTH [place] 37.5-25 mg 00 DAILY. Medical tablet Branch TRIAMTERENE 2018-0 Yes [id number] TAKE 2 [facility] -HYDROCHLOR 5-30 TABLETS BY it y of OTHIAZID 00:00: MOUTH [place] 37.5-25 mg 00 DAILY. Medical tablet Branch TRIAMTERENE 2019-0 Yes [id number] TAKE 2 [facility] -HYDROCHLOR 5-30 TABLETS BY it y of OTHIAZID 00:00: MOUTH [place] 37.5-25 mg 00 DAILY. Medical tablet Branch TRIAMTERENE 2018-0 Yes [id number] TAKE 2 [facility] -HYDROCHLOR 5-30 TABLETS BY it y of OTHIAZID 00:00: MOUTH [place] 37.5-25 mg 00 DAILY. Medical tablet Branch TRIAMTERENE 2018-0 Yes [id number] TAKE 2 [facility] -HYDROCHLOR 5-30 TABLETS BY it y of OTHIAZID 00:00: MOUTH [place] 37.5-25 mg 00 DAILY. Medical tablet Branch TRIAMTERENE 2018- Yes [id number] TAKE 2 [facility] -HYDROCHLOR 5-30 TABLETS BY it y of OTHIAZID 00:00: MOUTH [place] 37.5-25 mg 00 DAILY. Medical tablet Branch TRIAMTERENE 2018- Yes [id number] TAKE 2 [facility] -HYDROCHLOR 5-30 TABLETS BY it y of OTHIAZID 00:00: MOUTH [place] 37.5-25 mg 00 DAILY. Medical tablet Branch LEVOTHYROXI 2019-0 Yes [id number] TAKE 1 [facility] NE 25 mcg 5-13 TABLET BY ity o f tablet 00:00: MOUTH [place] 00 EVERY Medical MORNING. Branch LEVOTHYROXI 2019-0 Yes [id number] TAKE 1 [facility] [place] 25 mcg 5-13 TABLET BY ity o f tablet 00:00: MOUTH [place] 00 EVERY Medical MORNING. Branch LEVOTHYROXI 2019-0 Yes [id number] TAKE 1 [facility] [place] 25 mcg 5-13 TABLET BY [facility] o f tablet 00:00: MOUTH [place] 00 EVERY Medical MORNING. Branch LEVOTHYROXI 2019-0 Yes [id number] TAKE 1 [facility] [place] 25 mcg 5-13 TABLET BY [facility] o f tablet 00:00: MOUTH [place] 00 EVERY Medical MORNING. Branch LEVOTHYROXI 2019-0 Yes [id number] TAKE 1 [facility] 25 mcg 5-13 TABLET BY [facility] o f tablet 00:00: MOUTH [place] 00 EVERY Medical MORNING. Branch LEVOTHYROXI 2019-0 Yes [id number] TAKE 1 [facility] [place] 25 mcg 5-13 TABLET BY [facility] o f tablet 00:00: MOUTH [place] 00 EVERY Medical MORNING. Branch LEVOTHYROXI 2019-0 Yes [id number] TAKE 1 [facility] 25 mcg 5-13 TABLET BY [facility]y o f tablet 00:00: MOUTH [place] 00 EVERY Medical MORNING. Branch LEVOTHYROXI 2019-0 Yes [id number] TAKE 1 [facility] 25 mcg 5-13 TABLET BY [facility] o f tablet 00:00: MOUTH [place] 00 EVERY Medical MORNING. Branch LEVOTHYROXI 2019-0 Yes [id number] TAKE 1 [facility] 25 mcg 5-13 TABLET BY [facility] o f tablet 00:00: MOUTH [place] 00 EVERY Medical MORNING. Branch LEVOTHYROXI 2019-0 Yes [id number] TAKE 1 [facility] 25 mcg 5-13 TABLET BY [facility] o f tablet 00:00: MOUTH [place] 00 EVERY Medical MORNING. Branch LEVOTHYROXI 2019-0 Yes [id number] TAKE 1 [facility] 25 mcg 5-13 TABLET BY [facility] o f tablet 00:00: MOUTH [place] 00 EVERY Medical MORNING. Branch LEVOTHYROXI 2019-0 Yes [id number] TAKE 1 [facility] 25 mcg 5-13 TABLET BY [facility] o f tablet 00:00: MOUTH [place] 00 EVERY Medical MORNING. Branch LEVOTHYROXI 2019-0 Yes [id number] TAKE 1 [facility] 25 mcg 5-13 TABLET BY ity o f tablet 00:00: MOUTH [place] 00 EVERY Medical MORNING. Branch LEVOTHYROXI 2019-0 Yes [id number] TAKE 1 [facility] 25 mcg 5-13 TABLET BY [facility] o f tablet 00:00: MOUTH [place] 00 EVERY Medical MORNING. Branch LEVOTHYROXI 2019-0 Yes [id number] TAKE 1 [facility] 25 mcg 5-13 TABLET BY [facility] o f tablet 00:00: MOUTH [place] 00 EVERY Medical MORNING. Branch LEVOTHYROXI 2019-0 Yes [id number] TAKE 1 [facility] 25 mcg 5-13 TABLET BY it[facility] o f tablet 00:00: MOUTH [place] 00 EVERY Medical MORNING. Branch LEVOTHYROXI 2019-0 Yes [id number] TAKE 1 [facility] 25 mcg 5-13 TABLET BY [facility] o f tablet 00:00: MOUTH [place] 00 EVERY Medical MORNING. Branch LEVOTHYROXI 2019-0 Yes [id number] TAKE 1 [facility] 25 mcg 5-13 TABLET BY [facility] o f tablet 00:00: MOUTH [place] 00 EVERY Medical MORNING. Branch LEVOTHYROXI 2019-0 Yes [id number] TAKE 1 [facility] 25 mcg 5-13 TABLET BY [facility] o f tablet 00:00: MOUTH [place] 00 EVERY Medical MORNING. Branch LEVOTHYROXI 2019-0 Yes [id number] TAKE 1 [facility] 25 mcg 5-13 TABLET BY [facility] o f tablet 00:00: MOUTH [place] 00 EVERY Medical MORNING. Branch LEVOTHYROXI 2019-0 Yes [id number] TAKE 1 [facility] 25 mcg 5-13 TABLET BY [facility] o f tablet 00:00: MOUTH [place] 00 EVERY Medical MORNING. Branch LEVOTHYROXI 2019-0 Yes [id number] TAKE 1 [facility] 25 mcg 5-13 TABLET BY [facility] o f tablet 00:00: MOUTH [place] 00 EVERY Medical MORNING. Branch LEVOTHYROXI 2019-0 Yes [id number] TAKE 1 [facility] 25 mcg 5-13 TABLET BY [facility] o f tablet 00:00: MOUTH [place] 00 EVERY Medical MORNING. Branch LEVOTHYROXI 2019-0 Yes [id number] TAKE 1 [facility] 25 mcg 5-13 TABLET BY [facility] o f tablet 00:00: MOUTH [place] 00 EVERY Medical MORNING. Branch LEVOTHYROXI 2019-0 Yes [id number] TAKE 1 [facility] 25 mcg 5-13 TABLET BY [facility] o f tablet 00:00: MOUTH [place] 00 EVERY Medical MORNING. Branch LEVOTHYROXI 2019-0 Yes [id number] TAKE 1 [facility] 25 mcg 5-13 TABLET BY [facility] o f tablet 00:00: MOUTH [place] 00 EVERY Medical MORNING. Branch LEVOTHYROXI 2019-0 Yes [id number] TAKE 1 [facility] 25 mcg 5-13 TABLET BY [facility] o f tablet 00:00: MOUTH [place] 00 EVERY Medical MORNING. Branch LEVOTHYROXI 2019-0 Yes [id number] TAKE 1 [facility] 25 mcg 5-13 TABLET BY [facility] o f tablet 00:00: MOUTH [place] 00 EVERY Medical MORNING. Branch LEVOTHYROXI 2019-0 2020- No [id number] TAKE 1 [facility] 25 mcg 5-13 03-24 TABLET BY ity of tablet 00:00: 00:00 MOUTH [place] 00 :00 EVERY Medical MORNING. Branch traZODONE 2019-0 Yes [id number] 100mg Take 1 [facility] 100 mg 4-11 tablet by ity of tablet 00:00: mouth at [place] 00 bedtime. Medical For Branch insomnia. traZODONE 2019-0 Yes [id number] 100mg Take 1 [facility] 100 mg 4-11 tablet by ity of tablet 00:00: mouth at [place] 00 bedtime. Medical For [facility] insomnia. traZODONE 2019-0 Yes [id number] 100mg Take 1 [facility] 100 mg 4-11 tablet by ity of tablet 00:00: mouth at [place] [address] bedtime. Medical For Branch insomnia. traZODONE 2019-0 Yes [id number] 100mg Take 1 [facility] 100 mg 4-11 tablet by ity of tablet 00:00: mouth at [place] [address] bedtime. Medical For Branch insomnia. traZODONE 2019-0 Yes [id number] 100mg Take 1 [facility] 100 mg 4-11 tablet by ity of tablet 00:00: mouth at [place] [address] bedtime. Medical For Branch insomnia. traZODONE 2019-0 Yes [id number] 100mg Take 1 [facility] 100 mg 4-11 tablet by ity of tablet 00:00: mouth at [place] [address] bedtime. Medical For Branch insomnia. traZODONE 2019-0 Yes [id number] 100mg Take 1 [facility] 100 mg 4-11 tablet by ity of tablet 00:00: mouth at [place] [address] bedtime. Medical For Branch insomnia. traZODONE 2019-0 Yes [id number] 100mg Take 1 [facility] 100 mg 4-11 tablet by ity of tablet 00:00: mouth at [place] [address] bedtime. Medical For Branch insomnia. traZODONE 2019-0 Yes [id number] 100mg Take 1 [facility] 100 mg 4-11 tablet by ity of tablet 00:00: mouth at [place] [address] bedtime. Medical For Branch insomnia. traZODONE 2019-0 Yes [id number] 100mg Take 1 [facility] 100 mg 4-11 tablet by it[facility] of tablet 00:00: mouth at [place] [address] bedtime. Medical For Branch insomnia. traZODONE 2019-0 Yes [id number] 100mg Take 1 [facility] 100 mg 4-11 tablet by ity of tablet 00:00: mouth at [place] [address] bedtime. Medical For Branch insomnia. traZODONE 2019-0 Yes [id number] 100mg Take 1 [facility] 100 mg 4-11 tablet by it[facility] of tablet 00:00: mouth at [place] [address] bedtime. Medical For Branch insomnia. traZODONE 2019-0 Yes [id number] 100mg Take 1 [facility] 100 mg 4-11 tablet by [facility] of tablet 00:00: mouth at [place] [address] bedtime. Medical For Branch insomnia. metformin 2019-0 Yes [id number] 500mg Take 1 [facility] 500 mg 4-09 tablet by [facility] o f 24 hr 00:00: mouth [place] tablet 00 daily with Medical breakfast. Branch metformin 2019-0 Yes [id number] 500mg Take 1 [facility] ER 500 mg 4-09 tablet by ity o f 24 hr 00:00: mouth [place] tablet 00 daily with Medical breakfast. Branch metformin 2019-0 Yes [id number] 500mg Take 1 [facility] ER 500 mg 4-09 tablet by ity o f 24 hr 00:00: mouth [place] tablet 00 daily with Medical breakfast. Branch metformin 2018-0 Yes [id number] 500mg Take 1 [facility] ER 500 mg 4-09 tablet by ity o f 24 hr 00:00: mouth [place] tablet 00 daily with Medical breakfast. Branch metformin 2019-0 Yes [id number] 500mg Take 1 [facility] 500 mg 4-09 tablet by ity o f 24 hr 00:00: mouth [place] tablet 00 daily with Medical breakfast. Branch metformin 2019-0 Yes [id number] 500mg Take 1 [facility] ER 500 mg 4-09 tablet by ity o f 24 hr 00:00: mouth [place] tablet 00 daily with Medical breakfast. Branch metformin 2018-0 Yes [id number] 500mg Take 1 [facility] ER 500 mg 4-09 tablet by ity o f 24 hr 00:00: mouth [place] tablet 00 daily with Medical breakfast. Branch metformin 2019-0 Yes [id number] 500mg Take 1 [facility] ER 500 mg 4-09 tablet by ity o f 24 hr 00:00: mouth [place] tablet 00 daily with Medical breakfast. Branch metformin 2019-0 Yes [id number] 500mg Take 1 [facility] 500 mg 4-09 tablet by ity o f 24 hr 00:00: mouth [place] tablet 00 daily with Medical breakfast. Branch metformin 2019-0 Yes [id number] 500mg Take 1 [facility] ER 500 mg 4-09 tablet by ity o f 24 hr 00:00: mouth [place] tablet 00 daily with Medical breakfast. Branch metformin 2019-0 Yes [id number] 500mg Take 1 [facility] ER 500 mg 4-09 tablet by ity o f 24 hr 00:00: mouth [place] tablet 00 daily with Medical breakfast. Branch metformin 2019-0 Yes [id number] 500mg Take 1 [facility] ER 500 mg 4-09 tablet by ity o f 24 hr 00:00: mouth [place] tablet 00 daily with Medical breakfast. Branch metformin 2019-0 Yes [id number] 500mg Take 1 [facility] 500 mg 4-09 tablet by ity o f 24 hr 00:00: mouth [place] tablet 00 daily with Medical breakfast. Branch ciclopirox 2019-0 Yes [id number] Apply to [facility] 8 % 3-28 area(s) at ity of solution 00:00: bedtime. [place] 00 Apply to Medical Nails. Branch ciclopirox 2019-0 Yes [id number] Apply to [facility] 8 % 3-28 area(s) at ity of solution 00:00: bedtime. [place] 00 Apply to Medical Nails. Branch ciclopirox 2019-0 Yes [id number] Apply to [facility] 8 % 3-28 area(s) at ity of solution 00:00: bedtime. [place] 00 Apply to Medical Nails. Branch ciclopirox 2019-0 Yes [id number] Apply to [facility] 8 % 3-28 area(s) at ity of solution 00:00: bedtime. [place] 00 Apply to Medical Nails. Branch ciclopirox 2019-0 Yes [id number] Apply to [facility] 8 % 3-28 area(s) at ity of solution 00:00: bedtime. [place] 00 Apply to Medical Nails. Branch ciclopirox 2019-0 Yes [id number] Apply to [facility] 8 % 3-28 area(s) at ity of solution 00:00: bedtime. [place] 00 Apply to Medical Nails. Branch ciclopirox 2019-0 Yes [id number] Apply to [facility] 8 % 3-28 area(s) at ity of solution 00:00: bedtime. [place] 00 Apply to Medical Nails. Branch ciclopirox 2019-0 Yes [id number] Apply to [facility] 8 % 3-28 area(s) at ity of solution 00:00: bedtime. [place] 00 Apply to Medical Nails. Branch ciclopirox 2019-0 Yes [id number] Apply to [facility] 8 % 3-28 area(s) at ity of solution 00:00: bedtime. [place] 00 Apply to Medical Nails. Branch ciclopirox 2019-0 Yes [id number] Apply to [facility] 8 % 3-28 area(s) at ity of solution 00:00: bedtime. [place] 00 Apply to Medical Nails. Branch ciclopirox 2019-0 Yes [id number] Apply to [facility] 8 % 3-28 area(s) at ity of solution 00:00: bedtime. [place] 00 Apply to Medical Nails. Branch ciclopirox 2019-0 Yes [id number] Apply to [facility] 8 % 3-28 area(s) at ity of solution 00:00: bedtime. [place] 00 Apply to Medical Nails. Branch ciclopirox 2019-0 Yes [id number] Apply to [facility] 8 % 3-28 area(s) at ity of solution 00:00: bedtime. [place] 00 Apply to Medical Nails. Branch ciclopirox 2019-0 Yes [id number] Apply to [facility] 8 % 3-28 area(s) at ity of solution 00:00: bedtime. [place] 00 Apply to Medical Nails. Branch ciclopirox 2019-0 Yes [id number] Apply to [facility] 8 % 3-28 area(s) at ity of solution 00:00: bedtime. [place] 00 Apply to Medical Nails. Branch ciclopirox 2019-0 Yes [id number] Apply to [facility] 8 % 3-28 area(s) at ity of solution 00:00: bedtime. [place] 00 Apply to Medical Nails. Branch ciclopirox 2019-0 Yes [id number] Apply to [facility] 8 % 3-28 area(s) at ity of solution 00:00: bedtime. [place] 00 Apply to Medical Nails. Branch ciclopirox 2019-0 Yes [id number] Apply to [facility] 8 % 3-28 area(s) at ity of solution 00:00: bedtime. [place] 00 Apply to Medical Nails. Branch ciclopirox 2019-0 Yes [id number] Apply to [facility] 8 % 3-28 area(s) at ity of solution 00:00: bedtime. [place] 00 Apply to Medical Nails. Branch ciclopirox 2019-0 Yes [id number] Apply to [facility] 8 % 3-28 area(s) at ity of solution 00:00: bedtime. [place] 00 Apply to Medical Nails. Branch ciclopirox 2019-0 Yes [id number] Apply to [facility] 8 % 3-28 area(s) at ity of solution 00:00: bedtime. [place] 00 Apply to Medical Nails. Branch ciclopirox 2019-0 Yes [id number] Apply to [facility] 8 % 3-28 area(s) at ity of solution 00:00: bedtime. [place] 00 Apply to Medical Nails. Branch ciclopirox 2019-0 Yes [id number] Apply to [facility] 8 % 3-28 area(s) at ity of solution 00:00: bedtime. [place] 00 Apply to Medical Nails. Branch ciclopirox 2019-0 Yes [id number] Apply to [facility] 8 % 3-28 area(s) at ity of solution 00:00: bedtime. [place] 00 Apply to Medical Nails. Branch ciclopirox 2019-0 Yes [id number] Apply to [facility] 8 % 3-28 area(s) at ity of solution 00:00: bedtime. [place] 00 Apply to Medical Nails. Branch ciclopirox 2019-0 Yes [id number] Apply to [facility] 8 % 3-28 area(s) at ity of solution 00:00: bedtime. [place] 00 Apply to Medical Nails. Branch ciclopirox 2019-0 Yes [id number] Apply to [facility] 8 % 3-28 area(s) at ity of solution 00:00: bedtime. [place] 00 Apply to Medical Nails. Branch ciclopirox 2019-0 Yes [id number] Apply to [facility] 8 % 3-28 area(s) at ity of solution 00:00: bedtime. [place] 00 Apply to Medical Nails. Branch ciclopirox 2019-0 Yes [id number] Apply to [facility] 8 % 3-28 area(s) at ity of solution 00:00: bedtime. [place] 00 Apply to Medical Nails. Branch ciclopirox 2019-0 Yes [id number] Apply to [facility] 8 % 3-28 area(s) at ity of solution 00:00: bedtime. [place] 00 Apply to Medical Nails. Branch ciclopirox 2019-0 Yes [id number] Apply to [facility] 8 % 3-28 area(s) at ity of solution 00:00: bedtime. [place] 00 Apply to Medical Nails. Branch ciclopirox 2019-0 Yes [id number] Apply to [facility] 8 % 3-28 area(s) at ity of solution 00:00: bedtime. [place] 00 Apply to Medical Nails. Branch ciclopirox 2019-0 Yes [id number] Apply to [facility] 8 % 3-28 area(s) at ity of solution 00:00: bedtime. [place] 00 Apply to Medical Nails. Branch ciclopirox 2019-0 Yes [id number] Apply to [facility] 8 % 3-28 area(s) at ity of solution 00:00: bedtime. [place] 00 Apply to Medical Nails. Branch ciclopirox 2019-0 Yes [id number] Apply to [facility] 8 % 3-28 area(s) at ity of solution 00:00: bedtime. [place] 00 Apply to Medical Nails. Branch ciclopirox 2019-0 Yes [id number] Apply to [facility] 8 % 3-28 area(s) at ity of solution 00:00: bedtime. [place] 00 Apply to Medical Nails. Branch ciclopirox 2019-0 Yes [id number] Apply to [facility] 8 % 3-28 area(s) at ity of solution 00:00: bedtime. [place] 00 Apply to Medical Nails. Branch ciclopirox 2019-0 Yes [id number] Apply to [facility] 8 % 3-28 area(s) at ity of solution 00:00: bedtime. [place] 00 Apply to Medical Nails. Branch ciclopirox 2019-0 Yes [id number] Apply to [facility] 8 % 3-28 area(s) at ity of solution 00:00: bedtime. [place] 00 Apply to Medical Nails. Branch ciclopirox 2019-0 Yes [id number] Apply to [facility] 8 % 3-28 area(s) at ity of solution 00:00: bedtime. [place] 00 Apply to Medical Nails. Branch ciclopirox 2019-0 Yes [id number] Apply to [facility] 8 % 3-28 area(s) at ity of solution 00:00: bedtime. [place] 00 Apply to Medical Nails. Branch ciclopirox 2019-0 Yes [id number] Apply to [facility] 8 % 3-28 area(s) at ity of solution 00:00: bedtime. [place] 00 Apply to Medical Nails. Branch ciclopirox 2019-0 Yes [id number] Apply to [facility] 8 % 3-28 area(s) at ity of solution 00:00: bedtime. [place] 00 Apply to Medical Nails. Branch ciclopirox 2019-0 Yes [id number] Apply to [facility] 8 % 3-28 area(s) at ity of solution 00:00: bedtime. [place] 00 Apply to Medical Nails. Branch ciclopirox 2019-0 Yes [id number] Apply to [facility] 8 % 3-28 area(s) at ity of solution 00:00: bedtime. [place] 00 Apply to Medical Nails. Branch ciclopirox 2019-0 Yes [id number] Apply to [facility] 8 % 3-28 area(s) at ity of solution 00:00: bedtime. [place] 00 Apply to Medical Nails. Branch ciclopirox 2019-0 Yes [id number] Apply to [facility] 8 % 3-28 area(s) at ity of solution 00:00: bedtime. [place] 00 Apply to Medical Nails. Branch ciclopirox 2019-0 Yes [id number] Apply to [facility] 8 % 3-28 area(s) at ity of solution 00:00: bedtime. [place] 00 Apply to Medical Nails. Branch ciclopirox 2019-0 Yes [id number] Apply to [facility] 8 % 3-28 area(s) at ity of solution 00:00: bedtime. [place] 00 Apply to Medical Nails. Branch ciclopirox 2019-0 Yes [id number] Apply to [facility] 8 % 3-28 area(s) at ity of solution 00:00: bedtime. [place] 00 Apply to Medical Nails. Branch ciclopirox 2019-0 Yes [id number] Apply to [facility] 8 % 3-28 area(s) at ity of solution 00:00: bedtime. [place] 00 Apply to Medical Nails. Branch ciclopirox 2019-0 Yes [id number] Apply to [facility] 8 % 3-28 area(s) at ity of solution 00:00: bedtime. [place] 00 Apply to Medical Nails. Branch ciclopirox 2019-0 Yes [id number] Apply to [facility] 8 % 3-28 area(s) at ity of solution 00:00: bedtime. [place] 00 Apply to Medical Nails. Branch ciclopirox 2019-0 Yes [id number] Apply to [facility] 8 % 3-28 area(s) at ity of solution 00:00: bedtime. [place] 00 Apply to Medical Nails. Branch ciclopirox 2019-0 Yes [id number] Apply to [facility] 8 % 3-28 area(s) at ity of solution 00:00: bedtime. [place] 00 Apply to Medical Nails. Branch ciclopirox 2019-0 Yes [id number] Apply to [facility] 8 % 3-28 area(s) at ity of solution 00:00: bedtime. [place] 00 Apply to Medical Nails. Branch ciclopirox 2019-0 Yes [id number] Apply to [facility] 8 % 3-28 area(s) at ity of solution 00:00: bedtime. [place] 00 Apply to Medical Nails. Branch ciclopirox 2019-0 Yes [id number] Apply to [facility] 8 % 3-28 area(s) at ity of solution 00:00: bedtime. [place] 00 Apply to Medical Nails. Branch ciclopirox 2019-0 Yes [id number] Apply to [facility] 8 % 3-28 area(s) at ity of solution 00:00: bedtime. [place] 00 Apply to Medical Nails. Branch ciclopirox 2019-0 Yes [id number] Apply to [facility] 8 % 3-28 area(s) at ity of solution 00:00: bedtime. [place] 00 Apply to Medical Nails. Branch ciclopirox 2019-0 Yes [id number] Apply to [facility] 8 % 3-28 area(s) at ity of solution 00:00: bedtime. [place] 00 Apply to Medical Nails. Branch ciclopirox 2019-0 Yes [id number] Apply to [facility] 8 % 3-28 area(s) at ity of solution 00:00: bedtime. [place] 00 Apply to Medical Nails. Branch ciclopirox 2019-0 Yes [id number] Apply to [facility] 8 % 3-28 area(s) at ity of solution 00:00: bedtime. [place] 00 Apply to Medical Nails. Branch ciclopirox 2019-0 Yes [id number] Apply to [facility] 8 % 3-28 area(s) at ity of solution 00:00: bedtime. [place] 00 Apply to Medical Nails. Branch ciclopirox 2019-0 Yes [id number] Apply to [facility] 8 % 3-28 area(s) at ity of solution 00:00: bedtime. [place] 00 Apply to Medical Nails. Branch ciclopirox 2019-0 Yes [id number] Apply to [facility] 8 % 3-28 area(s) at ity of solution 00:00: bedtime. [place] 00 Apply to Medical Nails. Branch ciclopirox 2019-0 Yes [id number] Apply to [facility] 8 % 3-28 area(s) at ity of solution 00:00: bedtime. [place] 00 Apply to Medical Nails. Branch ciclopirox 2019-0 Yes [id number] Apply to [facility] 8 % 3-28 area(s) at ity of solution 00:00: bedtime. [place] 00 Apply to Medical Nails. Branch ciclopirox 2019-0 Yes [id number] Apply to [facility] 8 % 3-28 area(s) at ity of solution 00:00: bedtime. [place] 00 Apply to Medical Nails. Branch ciclopirox 2019-0 Yes [id number] Apply to [facility] 8 % 3-28 area(s) at ity of solution 00:00: bedtime. [place] 00 Apply to Medical Nails. Branch ciclopirox 2019-0 Yes [id number] Apply to [facility] 8 % 3-28 area(s) at ity of solution 00:00: bedtime. [place] 00 Apply to Medical Nails. Branch ciclopirox 2019-0 Yes [id number] Apply to [facility] 8 % 3-28 area(s) at ity of solution 00:00: bedtime. [place] 00 Apply to Medical Nails. Branch ciclopirox 2019-0 Yes [id number] Apply to [facility] 8 % 3-28 area(s) at ity of solution 00:00: bedtime. [place] 00 Apply to Medical Nails. Branch ciclopirox 2019-0 Yes [id number] Apply to [facility] 8 % 3-28 area(s) at ity of solution 00:00: bedtime. [place] 00 Apply to Medical Nails. Branch ciclopirox 2019-0 Yes [id number] Apply to [facility] 8 % 3-28 area(s) at ity of solution 00:00: bedtime. [place] 00 Apply to Medical Nails. Branch ciclopirox 2019-0 Yes [id number] Apply to [facility] 8 % 3-28 area(s) at ity of solution 00:00: bedtime. [place] 00 Apply to Medical Nails. Branch ciclopirox 2019-0 Yes [id number] Apply to [facility] 8 % 3-28 area(s) at ity of solution 00:00: bedtime. [place] 00 Apply to Medical Nails. Branch ciclopirox 2019-0 Yes [id number] Apply to [facility] 8 % 3-28 area(s) at ity of solution 00:00: bedtime. [place] 00 Apply to Medical Nails. Branch ciclopirox 2019-0 Yes [id number] Apply to [facility] 8 % 3-28 area(s) at ity of solution 00:00: bedtime. [place] 00 Apply to Medical Nails. Branch ciclopirox 2019-0 Yes [id number] Apply to [facility] 8 % 3-28 area(s) at ity of solution 00:00: bedtime. [place] 00 Apply to Medical Nails. Branch ciclopirox 2019-0 Yes [id number] Apply to [facility] 8 % 3-28 area(s) at ity of solution 00:00: bedtime. [place] 00 Apply to Medical Nails. Branch ciclopirox 2019-0 Yes [id number] Apply to [facility] 8 % 3-28 area(s) at ity of solution 00:00: bedtime. [place] 00 Apply to Medical Nails. Branch ciclopirox 2019-0 Yes [id number] Apply to [facility] 8 % 3-28 area(s) at ity of solution 00:00: bedtime. [place] 00 Apply to Medical Nails. Branch ciclopirox 2019-0 Yes [id number] Apply to [facility] 8 % 3-28 area(s) at ity of solution 00:00: bedtime. [place] 00 Apply to Medical Nails. Branch ciclopirox 2019-0 Yes [id number] Apply to [facility] 8 % 3-28 area(s) at ity of solution 00:00: bedtime. [place] 00 Apply to Medical Nails. Branch ciclopirox 2019-0 Yes [id number] Apply to [facility] 8 % 3-28 area(s) at ity of solution 00:00: bedtime. [place] 00 Apply to Medical Nails. Branch ciclopirox 2019-0 Yes [id number] Apply to [facility] 8 % 3-28 area(s) at ity of solution 00:00: bedtime. [place] 00 Apply to Medical Nails. Branch ciclopirox 2019-0 Yes [id number] Apply to [facility] 8 % 3-28 area(s) at ity of solution 00:00: bedtime. [place] 00 Apply to Medical Nails. Branch ciclopirox 2019-0 Yes [id number] Apply to [facility] 8 % 3-28 area(s) at ity of solution 00:00: bedtime. [place] 00 Apply to Medical Nails. Branch ciclopirox 2019-0 Yes [id number] Apply to [facility] 8 % 3-28 area(s) at ity of solution 00:00: bedtime. [place] 00 Apply to Medical Nails. Branch ciclopirox 2019-0 Yes [id number] Apply to [facility] 8 % 3-28 area(s) at ity of solution 00:00: bedtime. [place] 00 Apply to Medical Nails. Branch ciclopirox 2019-0 Yes [id number] Apply to [facility] 8 % 3-28 area(s) at ity of solution 00:00: bedtime. [place] 00 Apply to Medical Nails. Branch ciclopirox 2019-0 Yes [id number] Apply to [facility] 8 % 3-28 area(s) at ity of solution 00:00: bedtime. [place] 00 Apply to Medical Nails. Branch ciclopirox 2019-0 Yes [id number] Apply to [facility] 8 % 3-28 area(s) at ity of solution 00:00: bedtime. [place] 00 Apply to Medical Nails. Branch ciclopirox 2019-0 Yes [id number] Apply to [facility] 8 % 3-28 area(s) at ity of solution 00:00: bedtime. [place] 00 Apply to Medical Nails. Branch ciclopirox 2019-0 Yes [id number] Apply to [facility] 8 % 3-28 area(s) at ity of solution 00:00: bedtime. [place] 00 Apply to Medical Nails. Branch ciclopirox 2019-0 Yes [id number] Apply to [facility] 8 % 3-28 area(s) at ity of solution 00:00: bedtime. [place] 00 Apply to Medical Nails. Branch ciclopirox 2019-0 Yes [id number] Apply to [facility] 8 % 3-28 area(s) at ity of solution 00:00: bedtime. [place] 00 Apply to Medical Nails. Branch ciclopirox 2019-0 Yes [id number] Apply to [facility] 8 % 3-28 area(s) at ity of solution 00:00: bedtime. [place] 00 Apply to Medical Nails. Branch ciclopirox 2019-0 Yes [id number] Apply to [facility] 8 % 3-28 area(s) at ity of solution 00:00: bedtime. [place] 00 Apply to Medical Nails. Branch ciclopirox 2019-0 Yes [id number] Apply to [facility] 8 % 3-28 area(s) at ity of solution 00:00: bedtime. [place] 00 Apply to Medical Nails. Branch ciclopirox 2019-0 Yes [id number] Apply to [facility] 8 % 3-28 area(s) at ity of solution 00:00: bedtime. [place] 00 Apply to Medical Nails. Branch ciclopirox 2019-0 Yes [id number] Apply to [facility] 8 % 3-28 area(s) at ity of solution 00:00: bedtime. [place] 00 Apply to [facility] ciclopirox 2019-0 Yes [id number] Apply to [facility] 8 % 3-28 area(s) at ity of solution 00:00: bedtime. [place] 00 Apply to [facility] ciclopirox 2019-0 Yes [id number] Apply to [facility] 8 % 3-28 area(s) at ity of solution 00:00: bedtime. [place] 00 Apply to [facility] ciclopirox 2019-0 Yes [id number] Apply to [facility] 8 % 3-28 area(s) at ity of solution 00:00: bedtime. [place] 00 Apply to [facility] ciclopirox 2019-0 Yes [id number] Apply to [facility] 8 % 3-28 area(s) at ity of solution 00:00: bedtime. [place] 00 Apply to [facility] ciclopirox 2019-0 Yes [id number] Apply to [facility] 8 % 3-28 area(s) at ity of solution 00:00: bedtime. [place] 00 Apply to [facility] ciclopirox 2019-0 Yes [id number] Apply to [facility] 8 % 3-28 area(s) at ity of solution 00:00: bedtime. [place] 00 Apply to [facility] ciclopirox 2019-0 Yes [id number] Apply to [facility] 8 % 3-28 area(s) at ity of solution 00:00: bedtime. [place] 00 Apply to [facility] ciclopirox 2019-0 Yes [id number] Apply to [facility] 8 % 3-28 area(s) at ity of solution 00:00: bedtime. [place] 00 Apply to [facility] ciclopirox 2019-0 Yes [id number] Apply to [facility] 8 % 3-28 area(s) at ity of solution 00:00: bedtime. [place] 00 Apply to [facility] ciclopirox 2019-0 Yes [id number] Apply to [facility] 8 % 3-28 area(s) at ity of solution 00:00: bedtime. [place] 00 Apply to [facility] ciclopirox 2019-0 Yes [id number] Apply to [facility] 8 % 3-28 area(s) at ity of solution 00:00: bedtime. [place] 00 Apply to [facility] ciclopirox 2019-0 Yes [id number] Apply to [facility] 8 % 3-28 area(s) at ity of solution 00:00: bedtime. [place] 00 Apply to [facility] ciclopirox 2019-0 Yes [id number] Apply to [facility] 8 % 3-28 area(s) at ity of solution 00:00: bedtime. [place] 00 Apply to [facility] ciclopirox 2019-0 Yes [id number] Apply to [facility] 8 % 3-28 area(s) at ity of solution 00:00: bedtime. [place] 00 Apply to [facility] ciclopirox 2019-0 Yes [id number] Apply to [facility] 8 % 3-28 area(s) at ity of solution 00:00: bedtime. [place] 00 Apply to [facility] ciclopirox 2019-0 Yes [id number] Apply to [facility] 8 % 3-28 area(s) at ity of solution 00:00: bedtime. [place] 00 Apply to [facility] ciclopirox 2019-0 Yes [id number] Apply to [facility] 8 % 3-28 area(s) at ity of solution 00:00: bedtime. [place] 00 Apply to [facility] ciclopirox 2019-0 Yes [id number] Apply to [facility] 8 % 3-28 area(s) at ity of solution 00:00: bedtime. [place] 00 Apply to [facility] ciclopirox 2019-0 Yes [id number] Apply to [facility] 8 % 3-28 area(s) at ity of solution 00:00: bedtime. [place] 00 Apply to [facility] ciclopirox 2019-0 Yes [id number] Apply to [facility] 8 % 3-28 area(s) at ity of solution 00:00: bedtime. [place] 00 Apply to [facility] ciclopirox 2019-0 Yes [id number] Apply to [facility] 8 % 3-28 area(s) at ity of solution 00:00: bedtime. [place] 00 Apply to [facility] ciclopirox 2019-0 Yes [id number] Apply to [facility] 8 % 3-28 area(s) at ity of solution 00:00: bedtime. [place] 00 Apply to [facility] ciclopirox 2019-0 Yes [id number] Apply to [facility] 8 % 3-28 area(s) at ity of solution 00:00: bedtime. [place] 00 Apply to [facility] ciclopirox 2019-0 Yes [id number] Apply to [facility] 8 % 3-28 area(s) at ity of solution 00:00: bedtime. [place] 00 Apply to [facility] ciclopirox 2019-0 Yes [id number] Apply to [facility] 8 % 3-28 area(s) at ity of solution 00:00: bedtime. [place] 00 Apply to [facility] ciclopirox 2019-0 Yes [id number] Apply to [facility] 8 % 3-28 area(s) at ity of solution 00:00: bedtime. [place] 00 Apply to [facility] ciclopirox 2019-0 Yes [id number] Apply to [facility] 8 % 3-28 area(s) at ity of solution 00:00: bedtime. [place] 00 Apply to [facility] ciclopirox 2019-0 Yes [id number] Apply to [facility] 8 % 3-28 area(s) at ity of solution 00:00: bedtime. [place] 00 Apply to [facility] ciclopirox 2019-0 Yes [id number] Apply to [facility] 8 % 3-28 area(s) at ity of solution 00:00: bedtime. [place] 00 Apply to [facility] ciclopirox 2019-0 Yes [id number] Apply to [facility] 8 % 3-28 area(s) at ity of solution 00:00: bedtime. [place] 00 Apply to [facility] ciclopirox 2019-0 Yes [id number] Apply to [facility] 8 % 3-28 area(s) at ity of solution 00:00: bedtime. [place] 00 Apply to [facility] ciclopirox 2019-0 Yes [id number] Apply to [facility] 8 % 3-28 area(s) at ity of solution 00:00: bedtime. [place] 00 Apply to [facility] ciclopirox 2019-0 Yes [id number] Apply to [facility] 8 % 3-28 area(s) at ity of solution 00:00: bedtime. [place] 00 Apply to [facility] ciclopirox 2019-0 Yes [id number] Apply to [facility] 8 % 3-28 area(s) at ity of solution 00:00: bedtime. [place] 00 Apply to [facility] ciclopirox 2019-0 Yes [id number] Apply to [facility] 8 % 3-28 area(s) at ity of solution 00:00: bedtime. [place] 00 Apply to [facility] ciclopirox 2019-0 Yes [id number] Apply to [facility] 8 % 3-28 area(s) at ity of solution 00:00: bedtime. [place] 00 Apply to [facility] ciclopirox 2019-0 Yes [id number] Apply to [facility] 8 % 3-28 area(s) at ity of solution 00:00: bedtime. [place] 00 Apply to [facility] ciclopirox 2019-0 Yes [id number] Apply to [facility] 8 % 3-28 area(s) at ity of solution 00:00: bedtime. [place] 00 Apply to [facility] ciclopirox 2019-0 Yes [id number] Apply to [facility] 8 % 3-28 area(s) at ity of solution 00:00: bedtime. [place] 00 Apply to [facility] ciclopirox 2019-0 Yes [id number] Apply to [facility] 8 % 3-28 area(s) at ity of solution 00:00: bedtime. [place] 00 Apply to [facility] ciclopirox 2019-0 Yes [id number] Apply to [facility] 8 % 3-28 area(s) at ity of solution 00:00: bedtime. [place] 00 Apply to [facility] Branch ciclopirox Yes [id number] Apply to [facility] 8 % 3-28 area(s) at ity of solution 00:00: bedtime. [place] 00 Apply to [facility] Branch ciclopirox Yes [id number] Apply to [facility] 8 % 3-28 area(s) at ity of solution 00:00: bedtime. [place] 00 Apply to [facility] Branch ciclopirox Yes [id number] Apply to [facility] 8 % 3-28 area(s) at ity of solution 00:00: bedtime. [place] 00 Apply to [facility] Branch ciclopirox Yes [id number] Apply to [facility] 8 % 3-28 area(s) at ity of solution 00:00: bedtime. [place] 00 Apply to [facility] alcaftadine Yes Place in [facility] [place] (LASTACAFT) 1 each eye. ity of 0.25 % Drop 20:36: [place] [address] Medical Branch [address] in [facility] [place] [facility] (RESTASIS 1- each eye. ity of OPHTHALMIC) 20:36: [place] [address] Medical Branch ASCORBATE Yes Take by [facility] rs CALCIUM - mouth. ity of (VITAMIN C 20:36: [place] ORAL) Medical Branch DOCOSAHEXAN Yes Take by Uni vers OIC - mouth. ity of ACID/EPA 20:36: [place] (FISH OIL Medical ORAL) Branch vitamin E Yes 1000U Take 1,000 U nivers 1,000 unit -23 Units by ity o f capsule 20:36: mouth [place] 33 daily. Medical Branch Magnesium 0 Yes Take by [employer] [facility] 250 mg Tab -23 mouth. ity of 20:36: [place] [address] Medical Branch vitamin B-6 Yes 100mg Take 100 U nivers (VITAMIN 1-23 mg by ity of B-6) 100 mg 20:36: mouth [place] tablet 33 daily. Medical Branch CALCIUM Yes Take by [facility] CARBONATE/V -23 mouth. ity of ITAMIN D3 20:36: [place] (VITAMIN 33 Medical D-3 ORAL) Branch alcaftadine Yes Place in [place] (LASTACAFT) 1-23 each eye. ity of 0.25 % Drop 20:36: [place] [address] Medical Branch CY[address] Yes Place in [place] (RESTASIS 1-23 each eye. ity of OPHTHALMIC) 20:36: [place] [address] Medical Branch ASCORBATE Yes Take by [facility] rs CALCIUM 1-23 mouth. ity of (VITAMIN C 20:36: [place] ORAL) Medical Branch DOCOSAHEXAN Yes Take by Uni vers OIC - mouth. ity of ACID/EPA 20:36: [place] (FISH OIL 33 Medical ORAL) Branch vitamin E Yes 1000U Take 1,000 U nivers 1,000 unit 1-23 Units by ity o f capsule 20:36: mouth [place] 33 daily. Medical Branch Magnesium Yes Take by [facility] 250 mg Tab - mouth. ity of 20:36: [place] [address] Medical Branch vitamin B-6 Yes 100mg Take 100 U nivers (VITAMIN 1-23 mg by ity of B-6) 100 mg 20:36: mouth [place] tablet 33 daily. Medical Branch CALCIUM Yes Take by [facility] CARBONATE/V 10-09 mouth. ity of ITAMIN D3 20:36: [place] (VITAMIN 33 Medical D-3 ORAL) Branch alcaftadine Yes Place in [place] (LASTACAFT) 1-23 each eye. ity of 0.25 % Drop 20:36: [place] [address] Medical Branch CYCLOS[address] Yes Place in [place] (RESTASIS 1-23 each eye. ity of OPHTHALMIC) 20:36: [place] [address] Medical Branch ASCORBATE Yes Take by [facility] rs CALCIUM 1-23 mouth. ity of (VITAMIN C 20:36: [place] ORAL) Medical Branch DOCOSAHEXAN Yes Take by [facility] vers OIC 1-23 mouth. ity of ACID/EPA 20:36: [place] (FISH OIL 33 Medical ORAL) Branch vitamin E Yes 1000U Take 1,000 U nivers 1,000 unit 1-23 Units by ity o f capsule 20:36: mouth [place] 33 daily. Medical Branch Magnesium Yes Take by [facility] 250 mg Tab 1-23 mouth. ity of 20:36: [place] [address] Medical Branch vitamin B-6 Yes 100mg Take 100 U nivers (VITAMIN 1-23 mg by ity of B-6) 100 mg 20:36: mouth [place] tablet 33 daily. Medical Branch CALCIUM Yes Take by [facility] CARBONATE/V -23 mouth. ity of ITAMIN D3 20:36: [place] (VITAMIN 33 Medical D-3 ORAL) Branch alcaftadine Yes Place in [place] (LASTACAFT) 1- each eye. ity of 0.25 % Drop 20:36: [place] [address] [facility] Branch CYCLOS[address] Yes Place in [place] (RESTASIS 1- each eye. ity of OPHTHALMIC) 20:36: [place] [address] Medical Branch ASCORBATE Yes Take by [facility] rs CALCIUM 10-09 mouth. ity of (VITAMIN C 20:36: [place] ORAL) Medical Branch DOCOSAHEXAN Yes Take by [facility] vers OIC 10-09 mouth. ity of ACID/EPA 20:36: [place] (FISH OIL Medical ORAL) Branch vitamin E Yes 1000U Take 1,000 U nivers 1,000 unit - Units by ity o f capsule 20:36: mouth [place] 33 daily. Medical Branch Magnesium Yes Take by [facility] 250 mg Tab 10-09 mouth. ity of 20:36: [place] [address] Medical Branch vitamin B-6 Yes 100mg Take 100 U nivers (VITAMIN 1-23 mg by ity of B-6) 100 mg 20:36: mouth [place] tablet 33 daily. Medical Branch CALCIUM Yes Take by [facility] CARBONATE/V -23 mouth. ity of ITAMIN D3 20:36: [place] (VITAMIN 33 Medical D-3 ORAL) Branch alcaftadine Yes Place in [place] (LASTACAFT) 1-23 each eye. ity of 0.25 % Drop 20:36: [place] [address] Medical Branch CYCLOS[address] Yes Place in [place] (RESTASIS 1- each eye. ity of OPHTHALMIC) 20:36: [place] [address] Medical Branch ASCORBATE Yes Take by [facility] rs CALCIUM -23 mouth. ity of (VITAMIN C 20:36: [place] ORAL) Medical Branch DOCOSAHEXAN Yes Take by Uni vers OIC 1-23 mouth. ity of ACID/EPA 20:36: [place] (FISH OIL 33 Medical ORAL) Branch vitamin E Yes 1000U Take 1,000 U nivers 1,000 unit 1-23 Units by ity o f capsule 20:36: mouth [place] 33 daily. Medical Branch Magnesium 0 Yes Take by [facility] 250 mg Tab 1- mouth. ity of 20:36: [address] vitamin B-6 Yes 100mg Take 100 U nivers (VITAMIN 1-23 mg by ity of B-6) 100 mg 20:36: mouth [place] tablet 33 daily. Medical Branch CALCIUM Yes Take by [facility] CARBONATE/V -23 mouth. ity of ITAMIN D3 20:36: [place] (VITAMIN 33 Medical D-3 ORAL) Branch alcaftadine Yes Place in [place] (LASTACAFT) 10-09 each eye. ity of 0.25 % Drop 20:36: [address] Branch CYCLOSPOR[address] Yes Place in [place] (RESTASIS 10-09 each eye. ity of OPHTHALMIC) 20:36: [address] Branch ASCORBATE Yes Take by [facility] rs CALCIUM -23 mouth. ity of (VITAMIN C 20:36: [place] ORAL) Medical Branch DOCOSAHEXAN Yes Take by Uni vers OIC - mouth. ity of ACID/EPA 20:36: [place] (FISH OIL 33 Medical ORAL) Branch vitamin E Yes 1000U Take 1,000 U nivers 1,000 unit 1-23 Units by ity o f capsule 20:36: mouth [place] 33 daily. Medical Branch Magnesium Yes Take by [facility] 250 mg Tab - mouth. ity of 20:36: [address] Branch vitamin B-6 Yes 100mg Take 100 U nivers (VITAMIN 1-23 mg by ity of B-6) 100 mg 20:36: mouth [place] tablet 33 daily. Medical Branch CALCIUM 0 Yes Take by [facility] CARBONATE/V -23 mouth. ity of ITAMIN D3 20:36: [place] (VITAMIN 33 Medical D-3 ORAL) Branch alcaftadine Yes Place in [place] (LASTACAFT) 1- each eye. ity of 0.25 % Drop 20:36: [place] 33 Medical Branch CYCLOSPORIN Yes Place in [place] (RESTASIS 1-23 each eye. ity of OPHTHALMIC) 20:36: [place] [address] Medical Branch ASCORBATE Yes Take by [facility] rs CALCIUM - mouth. ity of (VITAMIN C 20:36: [place] ORAL) Medical Branch DOCOSAHEXAN Yes Take by [facility] vers OIC 10-09 mouth. ity of ACID/EPA 20:36: [place] (FISH OIL 33 Medical ORAL) Branch vitamin E Yes 1000U Take 1,000 U nivers 1,000 unit 1-23 Units by ity o f capsule 20:36: mouth [place] 33 daily. Medical Branch Magnesium Yes Take by [facility] 250 mg Tab - mouth. ity of 20:36: [place] [address] Medical Branch vitamin B-6 Yes 100mg Take 100 U nivers (VITAMIN 1-23 mg by ity of B-6) 100 mg 20:36: mouth [place] tablet 33 daily. Medical Branch CALCIUM Yes Take by [facility] CARBONATE/V 10-09 mouth. ity of ITAMIN D3 20:36: [place] ([place] [id number] Medical D-3 ORAL) Branch alcaftadine Yes Place in [place] (LASTACAFT) 1-23 each eye. ity of 0.25 % Drop 20:36: [place] [address] Medical Branch CYCLOSPORIN Yes Place in [place] (RESTASIS 1-23 each eye. ity of OPHTHALMIC) 20:36: [place] [address] Medical Branch ASCORBATE Yes Take by [facility] rs CALCIUM - mouth. ity of (VITAMIN C 20:36: [place] ORAL) Medical Branch DOCOSAHEXAN Yes Take by Uni vers OIC -23 mouth. ity of ACID/EPA 20:36: [place] (FISH OIL 33 Medical ORAL) Branch vitamin E Yes 1000U Take 1,000 U nivers 1,000 unit 1-23 Units by ity o f capsule 20:36: mouth [place] 33 daily. Medical Branch Magnesium 0 Yes Take by [facility] 250 mg Tab - mouth. ity of 20:36: [place] [address] Medical Branch vitamin B-6 Yes 100mg Take 100 U nivers (VITAMIN 1-23 mg by ity of B-6) 100 mg 20:36: mouth [place] tablet 33 daily. Medical Branch CALCIUM Yes Take by [facility] CARBONATE/V -23 mouth. ity of ITAMIN D3 20:36: [place] (VITAMIN 33 Medical D-3 ORAL) Branch alcaftadine Yes Place in [place] (LASTACAFT) 1- each eye. ity of 0.25 % Drop 20:36: [place] [address] [facility] Branch CYCLOS[address] Yes Place in [place] (RESTASIS - each eye. ity of OPHTHALMIC) 20:36: [place] [address] Medical Branch ASCORBATE Yes Take by [facility] CALCIUM - mouth. ity of (VITAMIN C 20:36: [place] ORAL) Medical Branch DOCOSAHEXAN Yes Take by [facility] vers OIC 10-09 mouth. ity of ACID/EPA 20:36: [place] (FISH OIL 33 Medical ORAL) Branch vitamin E Yes 1000U Take 1,000 U nivers 1,000 unit 1-23 Units by ity o f capsule 20:36: mouth [place] 33 daily. Medical Branch Magnesium Yes Take by [facility] 250 mg Tab - mouth. ity of 20:36: [place] [address] Medical Branch vitamin B-6 Yes 100mg Take 100 U nivers (VITAMIN 1-23 mg by ity of B-6) 100 mg 20:36: mouth [place] tablet 33 daily. Medical Branch CALCIUM Yes Take by [facility] CARBONATE/V - mouth. ity of ITAMIN D3 20:36: [place] (VITAMIN 33 Medical D-3 ORAL) Branch alcaftadine Yes Place in [place] (LASTACAFT) 1- each eye. ity of 0.25 % Drop 20:36: [place] [address] Medical Branch CYCLOSPOR[address] Yes Place in [place] (RESTASIS 1-23 each eye. ity of OPHTHALMIC) 20:36: [place] [address] Medical Branch ASCORBATE Yes Take by [facility] CALCIUM 1-23 mouth. ity of (VITAMIN C 20:36: [place] ORAL) Medical Branch DOCOSAHEXAN Yes Take by [facility] vers OIC -23 mouth. ity of ACID/EPA 20:36: [place] (FISH OIL 33 Medical ORAL) Branch vitamin E Yes 1000U Take 1,000 U nivers 1,000 unit 1-23 Units by ity o f capsule 20:36: mouth [place] 33 daily. Medical Branch Magnesium Yes Take by [facility] 250 mg Tab 1-23 mouth. ity of 20:36: [address] Branch vitamin B-6 Yes 100mg Take 100 U nivers (VITAMIN 1-23 mg by ity of B-6) 100 mg 20:36: mouth [place] tablet 33 daily. Medical Branch CALCIUM Yes Take by [facility] CARBONATE/V 1-23 mouth. ity of ITAMIN D3 20:36: [place] (VITAMIN 33 Medical D-3 ORAL) Branch alcaftadine Yes Place in [place] (LASTACAFT) 1-23 each eye. ity of 0.25 % Drop 20:36: [address] Branch CYCLOSPOR[address] Yes Place in [place] (RESTASIS 1-23 each eye. ity of OPHTHALMIC) 20:36: [address] Branch ASCORBATE Yes Take by [facility] rs CALCIUM 1-23 mouth. ity of (VITAMIN C 20:36: [place] ORAL) Medical Branch DOCOSAHEXAN Yes Take by [facility] vers OIC 1-23 mouth. ity of ACID/EPA 20:36: [place] (FISH OIL Medical ORAL) Branch vitamin E Yes 1000U Take 1,000 U nivers 1,000 unit 1-23 Units by ity o f capsule 20:36: mouth [place] 33 daily. Medical Branch Magnesium Yes Take by [facility] 250 mg Tab 1-23 mouth. ity of 20:36: [address] Branch vitamin B-6 Yes 100mg Take 100 U nivers (VITAMIN 1-23 mg by ity of B-6) 100 mg 20:36: mouth [place] tablet 33 daily. Medical Branch CALCIUM Yes Take by [facility] CARBONATE/V 1-23 mouth. ity of ITAMIN D3 20:36: [place] (VITAMIN 33 Medical D-3 ORAL) Branch alcaftadine Yes Place in [place] (LASTACAFT) 1-23 each eye. ity of 0.25 % Drop 20:36: [place] [address] Medical Branch CYCLOS[address] Yes Place in [place] [facility] (RESTASIS 1-23 each eye. ity of OPHTHALMIC) 20:36: [place] [address] Medical Branch ASCORBATE Yes Take by [facility] CALCIUM -23 mouth. ity of (VITAMIN C 20:36: [place] ORAL) Medical Branch DOCOSAHEXAN Yes Take by [facility] vers OIC 10-09 mouth. ity of ACID/EPA 20:36: [place] (FISH OIL 33 Medical ORAL) Branch vitamin E Yes 1000U Take 1,000 U nivers 1,000 unit 1-23 Units by ity o f capsule 20:36: mouth [place] 33 daily. Medical Branch Magnesium Yes Take by [facility] 250 mg Tab - mouth. ity of 20:36: [place] [address] Medical Branch vitamin B-6 Yes 100mg Take 100 U nivers (VITAMIN 1-23 mg by ity of B-6) 100 mg 20:36: mouth [place] tablet 33 daily. Medical Branch CALCIUM Yes Take by [facility] CARBONATE/V - mouth. ity of ITAMIN D3 20:36: [place] (VITAMIN 33 Medical D-3 ORAL) Branch alcaftadine Yes Place in [place] (LASTACAFT) 10-09 each eye. ity of 0.25 % Drop 20:36: [place] [address] [facility] Branch CYCLOSPORIN Yes Place in [place] [facility] (RESTASIS 10-09 each eye. ity of OPHTHALMIC) 20:36: [place] [address] Medical Branch ASCORBATE Yes Take by [facility] CALCIUM - mouth. ity of (VITAMIN C 20:36: [place] ORAL) Medical Branch DOCOSAHEXAN Yes Take by [facility] vers OIC 10-09 mouth. ity of ACID/EPA 20:36: [place] (FISH OIL 33 Medical ORAL) Branch vitamin E Yes 1000U Take 1,000 U nivers 1,000 unit 1-23 Units by ity o f capsule 20:36: mouth [place] 33 daily. Medical Branch Magnesium Yes Take by [facility] 250 mg Tab - mouth. ity of 20:36: [place] [address] Medical Branch vitamin B-6 Yes 100mg Take 100 U nivers (VITAMIN 1-23 mg by ity of B-6) 100 mg 20:36: mouth [place] tablet 33 daily. Medical Branch CALCIUM Yes Take by [facility] CARBONATE/V -23 mouth. ity of ITAMIN D3 20:36: [place] (VITAMIN 33 Medical D-3 ORAL) Branch Vitamin D3 Vitamin D3 No Vitamin D3 [...] Sodium 50 MCG 50 MCG 50 MCG Losartan Losartan No Losartan Potassium Potassium Potassium 50 MG 50 MG 50 MG Citalopram Citalopram No Citalopram Hydrobromid Hydrobromid Hydrobromi e 40 MG e 40 MG de 40 MG metroNIDAZO metroNIDAZO No 1{table TID metroNIDAZ LE 500 MG LE 500 MG t} OLE 500 MG Citalopram Citalopram No 1{table QD Citalopram Hydrobromid Hydrobromid t} Hydrobromi e 40 MG e 40 MG de 40 MG Pravastatin Pravastatin No Pravastati Sodium 20 Sodium 20 n Sodium MG MG 20 MG levoFLOXaci levoFLOXaci No 1{table QD levoFLOXac n 500 MG n 500 MG t} in 500 MG Ozempic Ozempic No Ozempic (0.25 or (0.25 or (0.25 or 0.5 0.5 0.5 MG/DOSE) 2 MG/DOSE) 2 MG/DOSE) 2 MG/1.5ML MG/1.5ML MG/1.5ML Vitamin D3 Vitamin D3 No Vitamin D3 Losartan Losartan No Losartan Potassium Potassium Potassium 50 MG 50 MG 50 MG predniSONE predniSONE No 1{table QD predniSONE 20 MG 20 MG t} 20 MG Ozempic Ozempic No Ozempic (0.25 or (0.25 or (0.25 or 0.5 0.5 0.5 MG/DOSE) 2 MG/DOSE) 2 MG/DOSE) 2 MG/3ML MG/3ML MG/3ML Metoprolol Metoprolol No Metoprolol Succinate Succinate Succinate ER 50 MG ER 50 MG ER 50 MG Levothyroxi Levothyroxi No Levothyrox ne Sodium ne Sodium ine Sodium 75 MCG 75 MCG 75 MCG Levothyroxi Levothyroxi No Levothyrox ne Sodium ne Sodium ine Sodium 88 MCG 88 MCG 88 MCG Vitamin C Vitamin C No Vitamin C 500 MG 500 MG 500 MG Pravastatin Pravastatin No Pravastati Sodium 10 Sodium 10 n Sodium MG MG 10 MG Ozempic Ozempic No Ozempic 0.25 or 0.5 0.25 or 0.5 0.25 or MG/DOSE MG/DOSE 0.5 MG/DOSE Vitamin D3 Vitamin D3 No Vitamin D3 Vitamin B6 Vitamin B6 No Vitamin B6 Farxiga 5 Farxiga 5 No Farxiga 5 MG MG MG Vitamin E Vitamin E No Vitamin E Pravastatin Pravastatin No 1{table QD Pravastati Sodium 20 Sodium 20 t} n Sodium MG MG 20 MG Ibandronate Ibandronate No Ibandronat Sodium 150 Sodium 150 e Sodium MG MG 150 MG Spironolact Spironolact No 1{table Spironolac one 25 MG one 25 MG t} tone 25 MG traZODone traZODone No traZODone HCl 100 MG HCl 100 MG HCl 100 MG traZODone traZODone No 1{table QD traZODone HCl 50 MG HCl 50 MG t_at_be HCl 50 MG dtime} metFORMIN metFORMIN No metFORMIN HCl ER 500 HCl ER 500 HCl ER 500 MG MG MG metFORMIN metFORMIN No metFORMIN HCl ER 500 HCl ER 500 HCl ER 500 MG MG MG Furosemide Furosemide No 1{table QD Furosemide 20 MG 20 MG t} 20 MG Magnesium Magnesium No Magnesium Rosuvastati Rosuvastati No 1{table QD Rosuvastat n Calcium n Calcium t} in Calcium 10 MG 10 MG 10 MG OneTouch OneTouch No OneTouch Ultra - Ultra - Ultra - Ibandronate Ibandronate No Ibandronat Sodium 150 Sodium 150 e Sodium MG MG 150 MG Atorvastati Atorvastati No 1{table QD Atorvastat n Calcium n Calcium t} in Calcium 10 MG 10 MG 10 MG Metoprolol Metoprolol No 1{table QD Metoprolol Succinate Succinate t} Succinate ER 50 MG ER 50 MG ER 50 MG Magnesium Magnesium No Magnesium Vitamin B6 Vitamin B6 No Vitamin B6 NexIUM NexIUM No NexIUM Breo Breo No 1{puff} QD Breo Ellipta Ellipta Ellipta 200-25 200-25 200-25 MCG/INH MCG/INH MCG/INH Lastacaft Lastacaft No 1{drop_ QD Lastacaft 0.25 % 0.25 % into_af 0.25 % fected_ eye} Losartan Losartan No 1{table QD Losartan Potassium Potassium t} Potassium 50 MG 50 MG 50 MG NexIUM NexIUM No NexIUM Losartan Losartan No Losartan Potassium Potassium Potassium 50 MG 50 MG 50 MG Citalopram Citalopram No Citalopram Hydrobromid Hydrobromid Hydrobromi e 40 MG e 40 MG de 40 MG metroNIDAZO metroNIDAZO No 1{table TID metroNIDAZ LE 500 MG LE 500 MG t} OLE 500 MG Citalopram Citalopram No 1{table QD Citalopram Hydrobromid Hydrobromid t} Hydrobromi e 40 MG e 40 MG de 40 MG Pravastatin Pravastatin No Pravastati Sodium 20 Sodium 20 n Sodium MG MG 20 MG levoFLOXaci levoFLOXaci No 1{table QD levoFLOXac n 500 MG n 500 MG t} in 500 MG Ozempic Ozempic No Ozempic (0.25 or (0.25 or (0.25 or 0.5 0.5 0.5 MG/DOSE) 2 MG/DOSE) 2 MG/DOSE) 2 MG/1.5ML MG/1.5ML MG/1.5ML Losartan Losartan No Losartan Potassium Potassium Potassium 50 MG 50 MG 50 MG predniSONE predniSONE No 1{table QD predniSONE 20 MG 20 MG t} 20 MG Ozempic Ozempic No Ozempic (0.25 or (0.25 or (0.25 or 0.5 0.5 0.5 MG/DOSE) 2 MG/DOSE) 2 MG/DOSE) 2 MG/3ML MG/3ML MG/3ML Metoprolol Metoprolol No Metoprolol Succinate Succinate Succinate ER 50 MG ER 50 MG ER 50 MG Levothyroxi Levothyroxi No Levothyrox ne Sodium ne Sodium ine Sodium 75 MCG 75 MCG 75 MCG Levothyroxi Levothyroxi No Levothyrox ne Sodium ne Sodium ine Sodium 88 MCG 88 MCG 88 MCG Vitamin C Vitamin C No Vitamin C 500 MG 500 MG 500 MG Pravastatin Pravastatin No Pravastati Sodium 10 Sodium 10 n Sodium MG MG 10 MG Ozempic Ozempic No Ozempic 0.25 or 0.5 0.25 or 0.5 0.25 or MG/DOSE MG/DOSE 0.5 MG/DOSE Vitamin D3 Vitamin D3 No Vitamin D3 Farxiga 5 Farxiga 5 No Farxiga 5 MG MG MG Vitamin E Vitamin E No Vitamin E Pravastatin Pravastatin No 1{table QD Pravastati Sodium 20 Sodium 20 t} n Sodium MG MG 20 MG Ibandronate Ibandronate No Ibandronat Sodium 150 Sodium 150 e Sodium MG MG 150 MG Spironolact Spironolact No 1{table Spironolac one 25 MG one 25 MG t} tone 25 MG traZODone traZODone No traZODone HCl 100 MG HCl 100 MG HCl 100 MG traZODone traZODone No 1{table QD traZODone HCl 50 MG HCl 50 MG t_at_be HCl 50 MG dtime} metFORMIN metFORMIN No metFORMIN HCl ER 500 HCl ER 500 HCl ER 500 MG MG MG metFORMIN metFORMIN No metFORMIN HCl ER 500 HCl ER 500 HCl ER 500 MG MG MG Furosemide Furosemide No 1{table QD Furosemide 20 MG 20 MG t} 20 MG Rosuvastati Rosuvastati No 1{table QD Rosuvastat n Calcium n Calcium t} in Calcium 10 MG 10 MG 10 MG OneTouch OneTouch No OneTouch Ultra - Ultra - Ultra - Ibandronate Ibandronate No Ibandronat Sodium 150 Sodium 150 e Sodium MG MG 150 MG Atorvastati Atorvastati No 1{table QD Atorvastat n Calcium n Calcium t} in Calcium 10 MG 10 MG 10 MG Metoprolol Metoprolol No 1{table QD Metoprolol Succinate Succinate t} Succinate ER 50 MG ER 50 MG ER 50 MG Magnesium Magnesium No Magnesium Vitamin B6 Vitamin B6 No Vitamin B6 NexIUM NexIUM No NexIUM Breo Breo No 1{puff} QD Breo Ellipta Ellipta Ellipta 200-25 200-25 200-25 MCG/INH MCG/INH MCG/INH Lastacaft Lastacaft No 1{drop_ QD Lastacaft 0.25 % 0.25 % into_af 0.25 % fected_ eye} Losartan Losartan No Losartan Potassium Potassium Potassium 50 MG 50 MG 50 MG Citalopram Citalopram No Citalopram Hydrobromid Hydrobromid Hydrobromi e 40 MG e 40 MG de 40 MG metroNIDAZO metroNIDAZO No 1{table TID metroNIDAZ LE 500 MG LE 500 MG t} OLE 500 MG Citalopram Citalopram No 1{table QD Citalopram Hydrobromid Hydrobromid t} Hydrobromi e 40 MG e 40 MG de 40 MG Pravastatin Pravastatin No Pravastati Sodium 20 Sodium 20 n Sodium MG MG 20 MG levoFLOXaci levoFLOXaci No 1{table QD levoFLOXac n 500 MG n 500 MG t} in 500 MG Ozempic Ozempic No Ozempic (0.25 or (0.25 or (0.25 or 0.5 0.5 0.5 MG/DOSE) 2 MG/DOSE) 2 MG/DOSE) 2 MG/1.5ML MG/1.5ML MG/1.5ML Losartan Losartan No Losartan Potassium Potassium Potassium 50 MG 50 MG 50 MG predniSONE predniSONE No 1{table QD predniSONE 20 MG 20 MG t} 20 MG Ozempic Ozempic No Ozempic (0.25 or (0.25 or (0.25 or 0.5 0.5 0.5 MG/DOSE) 2 MG/DOSE) 2 MG/DOSE) 2 MG/3ML MG/3ML MG/3ML Metoprolol Metoprolol No Metoprolol Succinate Succinate Succinate ER 50 MG ER 50 MG ER 50 MG Levothyroxi Levothyroxi No Levothyrox ne Sodium ne Sodium ine Sodium 75 MCG 75 MCG 75 MCG Levothyroxi Levothyroxi No Levothyrox ne Sodium ne Sodium ine Sodium 88 MCG 88 MCG 88 MCG Vitamin C Vitamin C No Vitamin C 500 MG 500 MG 500 MG Pravastatin Pravastatin No Pravastati Sodium 10 Sodium 10 n Sodium MG MG 10 MG Ozempic Ozempic No Ozempic 0.25 or 0.5 0.25 or 0.5 0.25 or MG/DOSE MG/DOSE 0.5 MG/DOSE Vitamin D3 Vitamin D3 No Vitamin D3 Farxiga 5 Farxiga 5 No Farxiga 5 MG MG MG Vitamin E Vitamin E No Vitamin E Pravastatin Pravastatin No 1{table QD Pravastati Sodium 20 Sodium 20 t} n Sodium MG MG 20 MG Ibandronate Ibandronate No Ibandronat Sodium 150 Sodium 150 e Sodium MG MG 150 MG Spironolact Spironolact No 1{table Spironolac one 25 MG one 25 MG t} tone 25 MG traZODone traZODone No traZODone HCl 100 MG HCl 100 MG HCl 100 MG traZODone traZODone No 1{table QD traZODone HCl 50 MG HCl 50 MG t_at_be HCl 50 MG dtime} metFORMIN metFORMIN No metFORMIN HCl ER 500 HCl ER 500 HCl ER 500 MG MG MG metFORMIN metFORMIN No metFORMIN HCl ER 500 HCl ER 500 HCl ER 500 MG MG MG Furosemide Furosemide No 1{table QD Furosemide 20 MG 20 MG t} 20 MG Rosuvastati Rosuvastati No 1{table QD Rosuvastat n Calcium n Calcium t} in Calcium 10 MG 10 MG 10 MG OneTouch OneTouch No OneTouch Ultra - Ultra - Ultra - Ibandronate Ibandronate No Ibandronat Sodium 150 Sodium 150 e Sodium MG MG 150 MG Atorvastati Atorvastati No 1{table QD Atorvastat n Calcium n Calcium t} in Calcium 10 MG 10 MG 10 MG Metoprolol Metoprolol No 1{table QD Metoprolol Succinate Succinate t} Succinate ER 50 MG ER 50 MG ER 50 MG Magnesium Magnesium No Magnesium Vitamin B6 Vitamin B6 No Vitamin B6 NexIUM NexIUM No NexIUM Breo Breo No 1{puff} QD Breo Ellipta Ellipta Ellipta 200-25 200-25 200-25 MCG/INH MCG/INH MCG/INH Lastacaft Lastacaft No 1{drop_ QD Lastacaft 0.25 % 0.25 % into_af 0.25 % fected_ eye} Levothyroxi Levothyroxi No Levothyrox ne Sodium ne Sodium ine Sodium 88 MCG 88 MCG 88 MCG Farxiga 5 Farxiga 5 No Farxiga 5 MG MG MG Atorvastati Atorvastati No 1{table QD Atorvastat n Calcium n Calcium t} in Calcium 20 MG 20 MG 20 MG Atorvastati Atorvastati No 1{table QD Atorvastat n Calcium n Calcium t} in Calcium 10 MG 10 MG 10 MG Metoprolol Metoprolol No 1{table QD Metoprolol Succinate Succinate t} Succinate ER 50 MG ER 50 MG ER 50 MG Citalopram Citalopram No 1{table QD Citalopram Hydrobromid Hydrobromid t} Hydrobromi e 40 MG e 40 MG de 40 MG Losartan Losartan No Losartan Potassium Potassium Potassium 50 MG 50 MG 50 MG Furosemide Furosemide No 1{table QD Furosemide 20 MG 20 MG t} 20 MG Farxiga 5 Farxiga 5 No Farxiga 5 MG MG MG Ozempic Ozempic No Ozempic 0.25 or 0.5 0.25 or 0.5 0.25 or MG/DOSE MG/DOSE 0.5 MG/DOSE Ibandronate Ibandronate No Ibandronat Sodium 150 Sodium 150 e Sodium MG MG 150 MG traZODone traZODone No traZODone HCl 100 MG HCl 100 MG HCl 100 MG metFORMIN metFORMIN No metFORMIN HCl ER 500 HCl ER 500 HCl ER 500 MG MG MG traZODone traZODone No 1{table QD traZODone HCl 50 MG HCl 50 MG t_at_be HCl 50 MG dtime} Spironolact Spironolact No 1{table Spironolac one 25 MG one 25 MG t} tone 25 MG Levothyroxi Levothyroxi No Levothyrox ne Sodium ne Sodium ine Sodium 88 MCG 88 MCG 88 MCG OneTouch OneTouch No OneTouch Ultra - Ultra - Ultra - Metoprolol Metoprolol No Metoprolol Succinate Succinate Succinate [...] 50 MG ER 50 MG Farxiga 5 xiga 5 No Farxiga 5 MG MG MG [...] Potassium 50 MG 50 MG 50 MG xiga 5 xiga 5 No Farxiga 5 MG MG MG [...] MG HCl 100 MG HCl 100 MG Farxiga 5 Farxiga 5 2021- No Farxiga [...] 11-07 MG 00:00 :00 Immunizations Ordered Filled Date Status Comments Source Immunization Name Immunization Name Pneumococcal 2019-04-25 Completed [facility] [...] Completed [facility] f Polysaccharide, 00:00:00 [facility] ical PPSV23 (PNEUMOVAX) Branch Pneumococcal 2019-04-25 Completed [facility] o f Polysaccharide, 00:00:00 [facility] ical PPSV23 (PNEUMOVAX) Branch Pneumococcal 13 2017-08-27 [...] Completed Universit [facility] of Conjugate, PCV13 00:00:00 [place] [facility] ([facility]ar 13) [facility] Pneumococcal 13 2017-08-27 Completed [facility] of Conjugate, PCV13 00:00:00 [place] [facility] (Prevnar 13) [facility] Pneumococcal 13 Unknown Completed [facility] Conjugate, PCV13 [place] [facility] (Prevnar 13) [facility] Pneumococcal Unknown Completed [facility] f Polysaccharide, [place] [facility] PPSV23 (PNEUMOVAX) Branch Vital Signs Vital Name Observation Time Observation Value Comments Source height 2023-01-31 59 [in_i] [facility] - 16:20:00 [facility] weight 2023-01-31 174.2 [lb_av] [facility] - 16:20:00 [facility] temperature 2023-01-31 97.3 [degF] [facility] - 16:20:00 [facility] bmi 2023-01-31 35.18 kg/m2 [facility] - 16:20:00 [facility] oximetry 2023-01-31 98 % [facility] - 16:20:00 [facility] respiratory rate 2023-01-31 18 /min [facility] - 16:20[facility]00 [facility] blood pressure 2023-01-31 130 mm[Hg] [facility] - systolic 16:20:00 [facility] blood pressure 2023-01-31 67 mm[Hg] [facility] - diastolic 16:20:00 [facility] height 2022-10-31 59 [in_i] [facility] - 16:10:00 [facility] weight 2022-10-31 181.1 [lb_av] [facility] - 16:10:00 [facility] temperature 2022-10-31 96.3 [degF] [facility] - 16:10:00 [facility] bmi 2022-10-31 36.57 kg/m2 [facility] - 16:10:00 [facility] oximetry 2022-10-31 97 % [facility] - 16:10:00 [facility] respiratory rate 2022-10-31 16 /min [facility] - 16:10:00 [facility] blood pressure 2022-10-31 122 mm[Hg] [facility] - systolic 16:10:00 [facility] blood pressure 2022-10-31 73 mm[Hg] [facility] - diastolic 16:10:00 [facility] height 2022-10-31 59 [in_i] [facility] - 16:10:00 [facility] weight 2022-10-31 181.1 [lb_av] [facility] - 16:10:00 [facility] temperature 2022-10-31 96.3 [degF] [facility] - 16:10:00 [facility] bmi 2022-10-31 36.57 kg/m2 [facility] - 16:10:00 [facility] oximetry 2022-10-31 97 % [facility] - 16:10:00 [facility] respiratory rate 2022-10-31 16 /min [facility] - 16:10:00 [facility] blood pressure 2022-10-31 122 mm[Hg] [facility] - systolic 16:10:00 [facility] blood pressure 2022-10-31 73 mm[Hg] [facility] - diastolic 16:10:00 [facility] height 2022-09-26 59 [in_i] [facility] - 15:20:00 [facility] weight 2022-09-26 177.8 [lb_av] [facility] - 15:20:00 [facility] temperature 2022-09-26 97.2 [degF] [facility] - 15:20:00 [facility] bmi 2022-09-26 35.91 kg/m2 [facility] - 15:20:00 [facility] oximetry 2022-09-26 98 % [facility] - 15:20:00 [facility] respiratory rate 2022-09-26 17 /min [facility] - 15:20:00 [facility] blood pressure 2022-09-26 138 mm[Hg] [facility] - systolic 15:20:00 [facility] blood pressure 2022-09-26 65 mm[Hg] [facility] - diastolic 15:20:00 [facility] height 2022-07-25 59 [in_i] [facility] - 14:30:00 [facility] weight 2022-07-25 181.6 [lb_av] [facility] - 14:30:00 [facility] temperature 2022-07-25 97.8 [degF] [facility] - 14:30:00 [facility] bmi 2022-07-25 36.67 kg/m2 [facility] - 14:30:00 [facility] oximetry 2022-07-25 97 % [facility] - 14:30:00 [facility] respiratory rate 2022-07-25 17 /min [facility] - 14:30:00 [facility] blood pressure 2022-07-25 136 mm[Hg] [facility] - systolic 14:30:00 [facility] blood pressure 2022-07-25 70 mm[Hg] [facility] - diastolic 14:30:00 [facility] height 2022-07-06 59 [in_i] [facility] - 11:40:00 [facility] weight 2022-07-06 179.4 [lb_av] [facility] - 11:40:00 [facility] temperature 2022-07-06 97.2 [degF] [facility] - 11:40:00 [facility] bmi 2022-07-06 36.23 kg/m2 [facility] - 11:40:00 [facility] oximetry 2022-07-06 98 % [facility] - 11:40:00 [facility] respiratory rate 2022-07-06 18 /min [facility] - 11:40:00 [facility] blood pressure 2022-07-06 138 mm[Hg] [facility] - systolic 11:40:00 [facility] blood pressure 2022-07-06 74 mm[Hg] [facility] - diastolic 11:40:00 [facility] height 2022-05-17 59 [in_i] [facility] - 13:00:00 [facility] weight 2022-05-17 185 [lb_av] [facility] - 13:00:00 [facility] bmi 2022-05-17 37.36 kg/m2 [facility] - 13:00:00 [facility] height 2022-04-25 59 [in_i] [facility] - 16:00:00 [facility] weight 2022-04-25 185.1 [lb_av] [facility] - 16:00:00 [facility] temperature 2022-04-25 97.2 [degF] [facility] - 16:00:00 [facility] bmi 2022-04-25 37.38 kg/m2 [facility] - 16:00:00 [facility] oximetry 2022-04-25 97 % [facility] - 16:00:00 [facility] respiratory rate 2022-04-25 17 /min [facility] - 16:00:00 [facility] blood pressure 2022-04-25 130 mm[Hg] [facility] - systolic 16:00:00 [facility] blood pressure 2022-04-25 63 mm[Hg] [facility] - diastolic 16:00:00 [facility] height 2021-12-28 59 [in_i] [facility] - 10:40:00 [facility] weight 2021-12-28 178.6 [lb_av] [facility] - 10:40:00 [facility] temperature 2021-12-28 97.2 [degF] [facility] - 10:40:00 [facility] bmi 2021-12-28 36.07 kg/m2 [facility] - 10:40:00 [facility] oximetry 2021-12-28 96 % [facility] - 10:40:00 [facility] respiratory rate 2021-12-28 16 /min [facility] - 10:40:00 [facility] blood pressure 2021-12-28 133 mm[Hg] [facility] - systolic 10:40:00 [facility] blood pressure 2021-12-28 63 mm[Hg] [facility] - diastolic 10:40:00 [facility] height 2021-11-29 59 [in_i] [facility] - 10:00:00 [facility] weight 2021-11-29 186.0 [lb_av] [facility] - 10:00:00 [facility] temperature 2021-11-29 97.2 [degF] [facility] - 10:00:00 [facility] bmi 2021-11-29 37.56 kg/m2 [facility] - 10:00:00 [facility] oximetry 2021-11-29 97 % [facility] - 10:00:00 [facility] respiratory rate 2021-11-29 16 /min [facility] - 10:00:00 [facility] blood pressure 2021-11-29 136 mm[Hg] [facility] - systolic 10:00:00 [facility] blood pressure 2021-11-29 72 mm[Hg] [facility] - diastolic 10:00:00 [facility] height 2021-10-26 59 [in_i] [facility] - 13:00:00 [facility] weight 2021-10-26 178.8 [lb_av] [facility] - 13:00:00 [facility] temperature 2021-10-26 97.9 [degF] [facility] - 13:00:00 [facility] bmi 2021-10-26 36.11 kg/m2 [facility] - 13:00:00 [facility] oximetry 2021-10-26 97 % [facility] - 13:00:00 [facility] respiratory rate 2021-10-26 17 /min [facility] - 13:00:00 [facility] blood pressure 2021-10-26 132 mm[Hg] [facility] - systolic 13:00:00 [facility] blood pressure 2021-10-26 76 mm[Hg] [facility] - diastolic 13:00:00 [facility] height 2021-09-28 59 [in_i] [facility] - 13:20:00 [facility] weight 2021-09-28 177.9 [lb_av] [facility] - 13:20:00 [facility] temperature 2021-09-28 97.8 [degF] [facility] - 13:20:00 [facility] bmi 2021-09-28 35.93 kg/m2 [facility] - 13:20:00 [facility] oximetry 2021-09-28 96 % [facility] - 13:20:00 [facility] respiratory rate 2021-09-28 16 /min [facility] - 13:20:00 [facility] blood pressure 2021-09-28 135 mm[Hg] [facility] - systolic 13:20:00 [facility] blood pressure 2021-09-28 72 mm[Hg] [facility] - diastolic 13:20:00 [facility] height 2021-08-29 59 [in_i] [facility] - 13:50:00 [facility] weight 2021-08-29 174.1 [lb_av] [facility] - 13:50:00 [facility] temperature 2021-08-29 97.2 [degF] [facility] - 13:50:00 [facility] bmi 2021-08-29 35.16 kg/m2 [facility] - 13:50:00 [facility] oximetry 2021-08-29 99 % [facility] - 13:50:00 [facility] respiratory rate 2021-08-29 16 /min [facility] - 13:50:00 [facility] blood pressure 2021-08-29 132 mm[Hg] [facility] - systolic 13:50:00 [facility] blood pressure 2021-08-29 72 mm[Hg] [facility] - diastolic 13:50:00 [facility] height 2021-07-19 59 [in_i] [facility] - 14:40:00 [facility] weight 2021-07-19 165 [lb_av] [facility] - 14:40:00 [facility] temperature 2021-07-19 98 [degF] [facility] - 14:40:00 [facility] bmi 2021-07-19 33.32 kg/m2 [facility] - 14:40:00 [facility] blood pressure 2021-07-19 139 mm[Hg] [facility] - systolic 14:40:00 [facility] blood pressure 2021-07-19 72 mm[Hg] [facility] - diastolic 14:40:00 [facility] height 2021-05-19 59 [in_i] [facility] - 10:50:00 [facility] weight 2021-05-19 163.0 [lb_av] [facility] - 10:50:00 [facility] temperature 2021-05-19 97.4 [degF] [facility] - 10:50:00 [facility] bmi 2021-05-19 32.92 kg/m2 [facility] - 10:50:00 [facility] oximetry 2021-05-19 95 % [facility] - 10:50:00 [facility] respiratory rate 2021-05-19 16 /min [facility] - 10:50:00 [facility] blood pressure 2021-05-19 158 mm[Hg] [facility] - systolic 10:50:00 [facility] blood pressure 2021-05-19 79 mm[Hg] [facility] - diastolic 10:50:00 [facility] bmi 2021-04-20 34.03 kg/m2 [facility] - 15:30:00 [facility] oximetry 2021-04-20 97 % [facility] - 15:30:00 [facility] respiratory rate 2021-04-20 17 /min [facility] - 15:30:00 [facility] blood pressure 2021-04-20 138 mm[Hg] [facility] - systolic 15:30:00 [facility] blood pressure 2021-04-20 74 mm[Hg] [facility] - diastolic 15:30:00 [facility] height 2021-04-20 59 [in_i] [facility] - 15:30:00 [facility] weight 2021-04-20 168.5 [lb_av] [facility] - 15:30:00 [facility] temperature 2021-04-20 97.5 [degF] [facility] - 15:30:00 [facility] Systolic blood 2021-03-08 145 mm[Hg] [facility] pressure 20:03:00 [facility] Diastolic blood 2021-03-08 82 mm[Hg] University o f pressure 20:03:00 [facility] Heart rate 2021-03-08 83 /min University of 20:03:00 [facility] Body temperature 2021-03-08 36.06 [place] [facility] 20:03:00 [facility] Body height 2021-03-08 149.9 cm University of 20:03:00 [facility] Body weight 2021-03-08 73.301 kg University of 20:03:00 [facility] BMI 2021-03-08 32.64 kg/m2 University of 20:03:00 [facility] Oxygen saturation 2021-03-08 96 /min [facility] in Arterial blood 20:03:00 [facility] by Pulse oximetry [place] Systolic blood 2021-02-07 131 mm[Hg] [facility] pressure 20:47:00 [facility] Diastolic blood 2021-02-07 61 mm[Hg] [facility] f pressure 20:47:00 [facility] Heart rate 2021-02-07 86 /min University of 20:47:00 [facility] Body temperature 2021-02-07 36.61 [place] [facility] 20:47:00 [facility] Body height 2021-02-07 149.9 cm University of 20:47:00 [facility] Body weight 2021-02-07 77.111 kg University of 20:47:00 [facility] BMI 2021-02-07 34.34 kg/m2 University of 20:47:00 [facility] Systolic blood 2021-02-04 157 mm[Hg] [facility] pressure 22:01:00 [facility] Diastolic blood 2021-02-04 78 mm[Hg] [facility] o f pressure 22:01:00 [facility] Heart rate 2021-02-04 66 /min University of 21:58:00 [facility] Body temperature 2021-02-04 35.67 [place] [facility] 21:58:00 [facility] Respiratory rate 2021-02-04 17 /min University of 21:58:00 [facility] Body height 2021-02-04 149.9 cm University of 21:58:00 [facility] Body weight 2021-02-04 75.751 kg University of 21:58:00 [facility] BMI 2021-02-04 33.73 kg/m2 University of 21:58:00 [facility] Oxygen saturation 2021-02-04 98 /min [facility] in Arterial blood 21:58:00 [facility] by Pulse oximetry Branch Systolic blood 2021-01-25 162 mm[Hg] [facility] pressure 20:01:00 [facility] Diastolic blood 2021-01-25 54 mm[Hg] University o f pressure 20:01:00 [facility] Heart rate 2021-01-25 60 /min University of 19:53:00 [facility] Respiratory rate 2021-01-25 16 /min University of 19:53:00 [facility] Body weight 2021-01-25 76.658 kg University of 19:53:00 [facility] BMI 2021-01-25 34.13 kg/m2 University of 19:53:00 [facility] Oxygen saturation 2021-01-25 96 /min [facility] of in Arterial blood 19:53:00 [facility] by Pulse oximetry Branch Systolic blood 2020-11-14 139 mm[Hg] [facility] pressure 21:00:00 [facility] Diastolic blood 2020-11-14 55 mm[Hg] [facility] o f pressure 21:00:00 [facility] Heart rate 2020-11-14 61 /min University of 21:00:00 [facility] Respiratory rate 2020-11-14 16 /min University of 21:00:00 [facility] Oxygen saturation 2020-11-14 95 /min [facility] in Arterial blood 21:00:00 [facility] by Pulse oximetry Branch Body temperature 2020-11-14 36.72 [place] [facility] 18:42:00 [facility] Body weight 2020-11-14 75.751 kg University of 18:42:00 [facility] BMI 2020-11-14 33.73 kg/m2 University of 18:42:00 [facility] Systolic blood 2020-11-09 152 mm[Hg] [facility] pressure 16:31:00 [facility] Diastolic blood 2020-11-09 79 mm[Hg] [facility] f pressure 16:31:00 [facility] Heart rate 2020-11-09 65 /min [facility] of 16:31:00 [facility] Body temperature 2020-11-09 36.06 [place] [facility] 16:31:00 [facility] Respiratory rate 2020-11-09 18 /min University of 16:31:00 [facility] Body height 2020-11-09 149.9 cm University of 16:31:00 [facility] Body weight 2020-11-09 76.204 kg University of 16:31:00 [facility] BMI 2020-11-09 33.93 kg/m2 University of 16:31:00 [facility] Oxygen saturation 2020-11-09 99 /min [facility] in Arterial blood 16:31:00 [facility] kacey by Pulse oximetry Branch Systolic blood 2020-09-28 131 mm[Hg] [facility] pressure 15:39:00 [facility] Diastolic blood 2020-09-28 67 mm[Hg] [facility] f pressure 15:39:00 [facility] Heart rate 2020-09-28 62 /min [facility] of 15:39:00 [facility] Body temperature 2020-09-28 36.22 [place] [facility] 15:39:00 [facility] Respiratory rate 2020-09-28 18 /min University of 15:39:00 [facility] Body height 2020-09-28 149.9 cm University of 15:39:00 [facility] Body weight 2020-09-28 74.254 kg University of 15:39:00 [facility] BMI 2020-09-28 33.06 kg/m2 University of 15:39:00 [facility] Oxygen saturation 2020-09-28 99 /min [facility] in Arterial blood 15:39:00 [facility] by Pulse oximetry Branch Systolic blood 2020-09-21 136 mm[Hg] [facility] pressure 19:16:00 [facility] Diastolic blood 2020-09-21 63 mm[Hg] [facility] o f pressure 19:16:00 [facility] Heart rate 2020-09-21 62 /min [facility] of 19:16:00 [facility] Body temperature 2020-09-21 36.67 [place] [facility] 19:11:00 [facility] Body height 2020-09-21 149.9 cm University of 19:11:00 [facility] Body weight 2020-09-21 74.844 kg University of 19:11:00 [facility] BMI 2020-09-21 33.33 kg/m2 University of 19:11:00 [facility] Systolic blood 2020-08-31 142 mm[Hg] [facility] pressure 04:35:10 [facility] Diastolic blood 2020-08-31 55 mm[Hg] [facility] f pressure 04:35:10 [facility] Heart rate 2020-08-31 67 /min University of 04:35:10 [facility] Body temperature 2020-08-31 37.11 [place] [facility] 04:35:10 [facility] Respiratory rate 2020-08-31 16 /min University of 04:35:10 [facility] Oxygen saturation 2020-08-31 96 /min [facility] in Arterial blood 04:35:10 [place] [facility] Pulse oximetry [facility] Body height 2020-08-31 149.9 cm University of 00:44:00 [facility] Body weight 2020-08-31 76.658 kg University of 00:44:00 [facility] BMI 2020-08-31 34.13 kg/m2 University of 00:44:00 [facility] Systolic blood 2020-08-23 120 mm[Hg] [facility] pressure 22:47:00 [facility] [facility] Diastolic blood 2020-08-23 63 mm[Hg] University o f pressure 22:47:00 [facility] Heart rate 2020-08-23 62 /min University of 22:47:00 [facility] Body temperature 2020-08-23 36.72 [place] University of 22:47:00 [facility] Body height 2020-08-23 149.9 cm University of 22:47:00 [facility] Body weight 2020-08-23 76.658 kg University of 22:47:00 [facility] BMI 2020-08-23 34.13 kg/m2 University of 22:47:00 [facility] Systolic blood 2020-08-11 114 mm[Hg] University of pressure 21:20:00 [facility] Diastolic blood 2020-08-11 58 mm[Hg] University o f pressure 21:20:00 [facility] Heart rate 2020-08-11 64 /min University of 21:20:00 [facility] Respiratory rate 2020-08-11 19 /min University of 21:20:00 [facility] Body height 2020-08-11 149.9 cm University of 21:20:00 [facility] Body weight 2020-08-11 76.204 kg University of 21:20:00 [facility] BMI 2020-08-11 33.93 kg/m2 University of 21:20:00 [facility] Oxygen saturation 2020-08-11 95 /min University of in Arterial blood 21:20:00 [place] [facility] by Pulse oximetry [facility] Systolic blood 2020-08-09 124 mm[Hg] University of pressure 20:49:00 [facility] Diastolic blood 2020-08-09 60 mm[Hg] [facility] o [facility] pressure 20:49:00 [facility] Heart rate 2020-08-09 64 /min University of 20:49:00 [facility] Respiratory rate 2020-08-09 19 /min University of 20:49:00 [facility] Body height 2020-08-09 149.9 cm University of 20:49:00 [facility] Body weight 2020-08-09 76.204 kg University of 20:49:00 [facility] BMI 2020-08-09 33.93 kg/m2 University of 20:49:00 [facility] Oxygen saturation 2020-08-09 96 /min University of in Arterial blood 20:49:00 [place] [facility] by Pulse oximetry Branch Systolic blood 2020-07-09 129 mm[Hg] University of pressure 17:01:00 [facility] Diastolic blood 2020-07-09 66 mm[Hg] [facility] o [facility] pressure 17:01:00 [facility] Heart rate 2020-07-09 61 /min University of 17:01:00 [facility] Respiratory rate 2020-07-09 18 /min University of 17:01:00 [facility] Body height 2020-07-09 149.9 cm University of 17:01:00 [facility] Body weight 2020-07-09 76.204 kg University of 17:01:00 [facility] BMI 2020-07-09 33.93 kg/m2 University of 17:01:00 [facility] Systolic blood 2020-07-07 132 mm[Hg] University of pressure 19:25:00 [facility] Diastolic blood 2020-07-07 73 mm[Hg] [facility] o f pressure 19:25:00 [facility] Heart rate 2020-07-07 68 /min University of 19:25:00 [facility] Respiratory rate 2020-07-07 19 /min University of 19:25:00 [facility] Body height 2020-07-07 149.9 cm University of 19:25:00 [facility] Body weight 2020-07-07 74.844 kg University of 19:25:00 [facility] BMI 2020-07-07 33.33 kg/m2 University of 19:25:00 [facility] Oxygen saturation 2020-07-07 97 /min University of in Arterial blood 19:25:00 [place] [facility] by Pulse oximetry Branch Body height 2020-06-21 149.9 cm University of 20:25:00 [facility] Body weight 2020-06-21 77.111 kg University of 20:25:00 [facility] BMI 2020-06-21 34.34 kg/m2 University of 20:25:00 [facility] Systolic blood 2020-06-09 115 mm[Hg] University of pressure 19:34:00 [facility] Diastolic blood 2020-06-09 60 mm[Hg] University o f pressure 19:34:00 [facility] Heart rate 2020-06-09 76 /min University of 19:34:00 [facility] Respiratory rate 2020-06-09 19 /min University of 19:34:00 [facility] Body height 2020-06-09 149.9 cm University of 19:34:00 [facility] Body weight 2020-06-09 75.978 kg University of 19:34:00 [facility] BMI 2020-06-09 33.83 kg/m2 University of 19:34:00 [facility] Oxygen saturation 2020-06-09 95 /min University in Arterial blood 19:34:00 [facility] by Pulse oximetry Branch Systolic blood 2020-06-07 144 mm[Hg] patient has not University of pressure 15:24:00 taken bp [place] [facility] Diastolic blood 2020-06-07 79 mm[Hg] patient has not Universit y of pressure 15:24:00 taken bp [place] [facility] Heart rate 2020-06-07 93 /min University of 15:24:00 [facility] Body temperature 2020-06-07 36.67 [place] University of 15:24:00 [facility] Body height 2020-06-07 149.9 cm University of 15:24:00 [facility] Body weight 2020-06-07 76.114 kg University of 15:24:00 [facility] BMI 2020-06-07 33.89 kg/m2 University of 15:24:00 [facility] Systolic blood 2020-06-03 142 mm[Hg] University of pressure 22:00:00 [facility] Diastolic blood 2020-06-03 64 mm[Hg] University o f pressure 22:00:00 [facility] Heart rate 2020-06-03 80 /min University of 22:00:00 [facility] Body temperature 2020-06-03 37.22 [place] University of 22:00:00 [facility] Respiratory rate 2020-06-03 15 /min University of 22:00:00 [facility] Oxygen saturation 2020-06-03 98 /min University of in Arterial blood 22:00:00 [facility] kacey by Pulse oximetry Branch Body weight 2020-06-03 68.04 kg University of 20:19:00 [facility] BMI 2020-06-03 30.30 kg/m2 University of 20:19:00 [facility] Systolic blood 2020-05-10 129 mm[Hg] University of pressure 19:25:00 [facility] Diastolic blood 2020-05-10 79 mm[Hg] University o f pressure 19:25:00 [facility] Heart rate 2020-05-10 85 /min University of 19:25:00 [facility] Body temperature 2020-05-10 36.33 [place] University of 19:25:00 [facility] Body height 2020-05-10 149.9 cm University of 19:25:00 [facility] Body weight 2020-05-10 75.116 kg University of 19:25:00 [facility] BMI 2020-05-10 33.45 kg/m2 University of :25:00 [facility] Oxygen saturation 2020-05-10 97 /min University of in Arterial blood 19:25:00 [facility] by Pulse oximetry Branch Systolic blood 2020-02-26 134 mm[Hg] University of pressure 19:37:00 [facility] Diastolic blood 2020-02-26 72 mm[Hg] University o f pressure 19:37:00 [facility] Heart rate 2020-02-26 71 /min University of 19:37:00 [facility] Respiratory rate 2020-02-26 19 /min University of 19:37:00 [facility] Body height 2020-02-26 149.9 cm University of 19:37:00 [facility] Body weight 2020-02-26 75.751 kg University of 19:37:00 [facility] BMI 2020-02-26 33.73 kg/m2 University of 19:37:00 [facility] Oxygen saturation 2020-02-26 99 /min University of in Arterial blood 19:37:00 [facility] kacey by Pulse oximetry Branch Heart rate 2019-12-09 90 /min University of 21:40:00 [facility] Body temperature 2019-12-09 36.56 [place] University of :40:00 [facility] Respiratory rate 2019-12-09 18 /min University of :40:00 [facility] Oxygen saturation 2019-12-09 95 /min University of in Arterial blood 21:40:00 [facility] kacey by Pulse oximetry Branch Systolic blood 2019-12-09 122 mm[Hg] University of pressure 17:00:00 [facility] Diastolic blood 2019-12-09 65 mm[Hg] University o f pressure 17:00:00 [facility] Body weight 2019-12-09 74.707 kg University of 05:30:00 [facility] BMI 2019-12-09 33.27 kg/m2 University of 05:30:00 [facility] Body height 2019-12-07 149.9 cm University of 05:30:00 [facility] Respiratory rate 2019-11-15 16 /min University of 02:46:00 [facility] Oxygen saturation 2019-11-15 97 /min [facility] in Arterial blood 02:46:00 [facility] by Pulse oximetry Branch Systolic blood 2019-11-15 159 mm[Hg] University of pressure 02:24:00 [facility] Diastolic blood 2019-11-15 72 mm[Hg] University o f pressure 02:24:00 [facility] Heart rate 2019-11-15 75 /min University of 02:24:00 [facility] Body temperature 2019-11-14 37 [place] University of 23:50:00 [facility] Body height 2019-11-14 149.9 cm University of 23:50:00 [facility] Body weight 2019-11-14 74.844 kg University of :50:00 [facility] BMI 2019-11-14 33.33 kg/m2 University of :50:00 [facility] Systolic blood 2019-11-09 136 mm[Hg] University of pressure 01:04:00 [facility] Diastolic blood 2019-11-09 61 mm[Hg] University o f pressure 01:04:00 [facility] Heart rate 2019-11-09 80 /min University of :03:00 [facility] Body temperature 2019-11-09 36.67 [place] University of 01:03:00 [facility] Respiratory rate 2019-11-09 20 /min University of :03:00 [facility] Body height 2019-11-09 149.9 cm University of :03:00 [facility] Body weight 2019-11-09 76.658 kg University of :03:00 [facility] BMI 2019-11-09 34.13 kg/m2 University of 01:03:00 [facility] Oxygen saturation 2019-11-09 95 /min University in Arterial blood 01:03:00 [facility] Pulse oximetry Branch Systolic blood 2019-10-30 156 mm[Hg] University of pressure 16:21:00 [facility] Diastolic blood 2019-10-30 80 mm[Hg] University o f pressure 16:21:00 [facility] Heart rate 2019-10-30 77 /min University of 15:40:00 [facility] Body temperature 2019-10-30 36.61 [place] University of 15:40:00 [facility] Body height 2019-10-30 149.9 cm University of 15:40:00 [facility] Body weight 2019-10-30 76.204 kg University of 15:40:00 [facility] BMI 2019-10-30 33.93 kg/m2 University of 15:40:00 [facility] Systolic blood 2019-06-05 125 mm[Hg] University of pressure 18:17:00 [facility] Diastolic blood 2019-06-05 75 mm[Hg] University o f pressure 18:17:00 [facility] Heart rate 2019-06-05 80 /min University of 18:17:00 [facility] Body temperature 2019-06-05 36.67 [place] University of 18:17:00 [facility] Respiratory rate 2019-06-05 18 /min University of 18:17:00 [facility] Body height 2019-06-05 149.9 cm University of 18:17:00 [facility] Body weight 2019-06-05 74.844 kg University of 18:17:00 [facility] BMI 2019-06-05 33.33 kg/m2 University of 18:17:00 [facility] Systolic blood 2019-06-02 117 mm[Hg] University of pressure 23:21:00 [facility] Diastolic blood 2019-06-02 68 mm[Hg] University o f pressure 23:21:00 [facility] Heart rate 2019-06-02 64 /min University of 23:21:00 [facility] Body temperature 2019-06-02 36.61 [place] University of 23:21:00 [facility] Respiratory rate 2019-06-02 18 /min University of 23:21:00 [facility] Body height 2019-06-02 149.9 cm University of 23:21:00 [facility] Body weight 2019-06-02 74.571 kg [facility] 23:21:00 [facility] BMI 2019-06-02 33.20 kg/m2 [facility] 23:21:00 [facility] Oxygen saturation 2019-06-02 98 /min [facility] in Arterial blood 23:21:00 [facility] by Pulse oximetry [place] Systolic blood 2019-04-25 125 mm[Hg] University of pressure 18:26:00 [facility] Diastolic blood 2019-04-25 68 mm[Hg] University o f pressure 18:26:00 [facility] Heart rate 2019-04-25 71 /min University 18:26:00 [facility] Body temperature 2019-04-25 36.94 [place] University 18:26:00 [facility] Body height 2019-04-25 149.9 cm [facility] 18:26:00 [facility] Body weight 2019-04-25 75.297 kg [facility] 18:26:00 [facility] BMI 2019-04-25 33.53 kg/m2 [facility] 18:26:00 [facility] Heart rate 2022-02-15 63 /min Jain 20:27:00 [facility] Body height 2022-02-15 149.9 cm Jain 20:27:00 [facility] Body weight 2022-02-15 84.369 kg Jain 20:27:00 [facility] BMI 2022-02-15 37.57 kg/m2 Jain 20:27:00 [facility] Oxygen saturation 2022-02-15 99 /min Jain in Arterial blood 20:27:00 Hospital by Pulse oximetry Respiratory rate 2022-01-11 14 /min Jain 20:38:00 Hospital Height 2021-11-02 149.86 cm [facility] 16:40:00 Weight 2021-11-02 [facility] Bney n 16:40:00 BMI Calculated 2021-11-02 [facility] Herm josefina 16:40:00 Heart Rate 2021-11-02 [facility] 16:15:16 Systolic (mm Hg) 2021-11-02 [facility] rmann 16:14:24 Diastolic (mm Hg) 2021-11-02 [facility] H ermann 16:14:24 Heart Rate 2021-11-02 Ghazala Daniellean n 16:14:24 Height 2021-10-28 149.86 cm Ghazala Swan n 20:36:00 Weight 2021-10-28 [facility] Beny n 20:36:00 BMI Calculated 2021-10-28 [facility] josefina 20:36:00 Systolic (mm Hg) 2021-02-21 [facility] rmann 20:30:00 Diastolic (mm Hg) 2021-02-21 [facility] ermann 20:30:00 Systolic (mm Hg) 2021-02-21 [facility] rmann 20:15:00 Diastolic (mm Hg) 2021-02-21 [facility] ermann 20:15:00 Systolic (mm Hg) 2021-02-21 [facility] rmann 20:00:00 Diastolic (mm Hg) 2021-02-21 [facility] ermann 20:00:00 Respitory Rate 2021-02-21 [facility] josefina 19:45:00 Respitory Rate 2021-02-21 [facility] josefina 19:30:00 Respitory Rate 2021-02-21 [facility] josefina 19:15:00 Height 2021-02-17 149.86 cm [facility] Beny n 19:43:00 Weight 2021-02-17 [facility] Beny n 19:43:00 BMI Calculated 2021-02-17 [facility] Herm josefina 19:43:00 Procedures Procedure Date / Time Performing Clinician Source Performed AUTOMATED VISUAL FIELD, 2022-07-10 21:11:52 [facility] EXTENDED - OS - LEFT EYE AUTOMATED VISUAL FIELD, 2022-07-10 21:10:36 [facility] EXTENDED - OS - LEFT EYE AUTHORIZATION FOR RELEASE 2022-06-19 05:01:00 Doctor Ger, [facility] PULMONARY FUNCTION TEST 2022-02-15 20:05:[address] [facility] AUTHORIZATION FOR RELEASE 2022-01-13 05:01:00 Doctor Unassigned, [facility] Name [facility] MEDICATION CORRESPONDENCE 2021-04-27 05:01:00 Doctor Ger, [facility] Name [facility] REFERRAL- REQUEST/RESPONSE 2021-03-07 05:01:00 Doctor Marelyssstacy , [facility] Name [facility] MEDICATION CORRESPONDENCE 2021-02-09 05:01:00 Doctor Marelyssstacy, [facility] Name [facility] FERRITIN SERUM 2021-01-26 14:05:00 Jose Fraser [facility] THYROID STIMULATING 2021-01-26 14:05:00 Jose Fraser [facility] HORMONE [facility] COMP. METABOLIC PANEL 2021-01-26 14:05:00 [id number] LIPID PANEL ([id number])(TOTAL 2021-01-26 14:05:00 Jose Fraser [facility] CHOLESTEROL, [facility] TRIGLYCERIDES, HDL) IRON PANEL 2021-01-26 14:05:00 Jose Fraser [facility] CBC WITHOUT DIFF 2021-01-26 14:05:00 Jose Fraser [facility] GLYCOSYLATED HEMOGLOBIN 2021-01-26 14:05:00 Jose Fraser [facility] (A1C) [facility] CT ABDOMEN PELVIS W 2020-11-14 19:55:51 Patricia Shi [facility] CONTRAST [facility] URINALYSIS 2020-11-14 19:30:00 Patricia Shi [facility] COVID-19 (ID NOW RAPID 2020-11-14 19:06:00 Patricia Shi [facility] TESTING) Medical Branch LIPASE 2020-11-14 19:05:00 Patricia Shi [facility] TROPONIN I 2020-11-14 19:05:00 Patricia Shi [facility] HEPATIC FUNCTION PANEL 2020-11-14 19:05:00 Patricia Shi [facility] ([id number]) (ALB,T.PRO,BILI [facility] T,BU/BC,ALT,AST,ALK PHOS) BASIC METABOLIC PANEL (NA, 2020-11-14 19:05:00 Patricia Shi [facility] K, CL, CO2, GLUCOSE, BUN, Medica l Branch CREATININE, [place]) CBC WITH DIFF 2020-11-14 19:05:00 Patricia Shi [facility] PROTHROMBIN TIME / INR 2020-11-14 19:05:00 Patricia Shi [facility] ACTIVATED PARTIAL THRMPLAS 2020-11-14 19:05:00 Patricia Shi [facility] BALAJI [facility] NOTICE OF PRIVACY 2020-11-14 18:26:59 Doctor Unassigned, [facility] PRACTICES [place] [facility] CONSENT/REFUSAL FOR 2020-11-14 18:26:36 Doctor Ger, [facility] DIAGNOSIS AND TREATMENT [place] [facility] EXTERNAL PROVIDER RECORDS 2020-10-08 06:01:00 Doctor Ger [facility] [place] [facility] HOME HEALTH - OTHER 2020-10-06 06:01:00 Doctor Ger [facility] [place] [facility] ASSIGNMENT OF BENEFITS 2020-10-05 19:31:32 Doctor Marelyssstacy, [facility] [place] [facility] Lap Band removal 2020-09-17 00:00:00 [facility] PCI - Percutaneous 2020-09-17 00:00:00 [facility] coronary intervention CONSENT/REFUSAL FOR 2020-08-31 00:30:55 Doctor Cyr [facility] DIAGNOSIS AND TREATMENT [place] [facility] DEXA AXIAL (HIP AND SPINE) 2020-08-25 20:11:01 Jose Fraser [facility] XR HIPS 2 VW BILATERAL 2020-08-25 19:16:37 Jose Fraser [facility] [place] DME/SUPPLY JUSTIFICATION 2020-08-11 06:01:00 Doctor Cyr [facility] [place] [facility] SLEEP STUDY DATA REPORT 2020-07-17 05:01:[address] [facility] Name Medical Branch COVID-19 (ID NOW RAPID 2020-06-11 19:31:00 Jose Fraser [facility] TESTING) [facility] Branch ASSIGNMENT OF BENEFITS 2020-06-11 19:08:54 Doctor Ger, [facility] [place] [facility] XR CHEST 1 VW COVID 2020-06-03 21:07:32 Ko Breen [facility] Branch COVID-19 (ID NOW RAPID 2020-06-03 20:56:00 Ko Breen [facility] TESTING) Medical Branch TROPONIN I 2020-06-03 20:47:00 Ko Breen [facility] [place] COMP. METABOLIC PANEL 2020-06-03 20:47:00 Ko Breen [facility] ([id number]) Medical Branch CBC WITH DIFF 2020-06-03 20:47:00 Ko Breen [facility] PROTHROMBIN TIME / INR 2020-06-03 20:47:[address] [facility] N-TERMINAL PRO-BNP 2020-06-03 20:47:00 Ko Breen [facility] EKG-12 LEAD 2020-06-03 20:26:00 Avani Anderson [facility] CONSENT/REFUSAL FOR 2020-06-03 20:08:11 Doctor Unassigned, [facility] DIAGNOSIS AND TREATMENT [place] [facility] INSURANCE CORRESPONDENCE 2020-04-12 05:01:00 Doctor Unassigned, [facility] REFERRAL- REQUEST/RESPONSE 2020-02-16 05:01:00 Doctor Unassigned , [facility] REFERRAL- REQUEST/RESPONSE 2020-01-12 05:01:00 Doctor Unassigned , [facility] POCT GLUCOSE (AUTOMATED) 2019-12-09 21:00:00 Kelly [facility]ittal [facility] POCT GLUCOSE (AUTOMATED) 2019-12-09 16:34:00 Kyrie [facility] POCT GLUCOSE (AUTOMATED) 2019-12-09 12:27:00 [facility] THYROID STIMULATING 2019-12-09 10:55:00 Kelly Mittal [facility] HORMONE [facility] BASIC METABOLIC PANEL (NA, 2019-12-09 10:55:00 Kelly Mittal [facility] K, CL, CO2, GLUCOSE, BUN, Medica l Branch CREATININE, [place]) CBC WITH DIFFERENTIAL 2019-12-09 10:55:00 Kelly Mittal [facility] ACTIVATED PARTIAL THRMPLAS 2019-12-09 10:55:00 Kelly Mittal [facility] BALAJI [facility] POCT GLUCOSE (AUTOMATED) 2019-12-09 00:20:00 Kelly [facility] POCT GLUCOSE (AUTOMATED) 2019-12-08 20:54:00 Kyrie [facility] ACTIVATED PARTIAL THRMPLAS 2019-12-08 18:56:00 Migel Vick [facility] POCT GLUCOSE (AUTOMATED) 2019-12-08 16:42:00 Kyrie Rejiewelina Renee [facility] POCT GLUCOSE (AUTOMATED) 2019-12-08 12:16:00 Kelly Mittal Renee [facility] CBC WITH DIFFERENTIAL 2019-12-08 06:36:00 [facility] PARTIAL THRMPLAS 2019-12-08 06:36:00 Kelly Mittal [facility] POCT GLUCOSE (AUTOMATED) 2019-12-08 00:53:00 Kyrie Rejiweelina Renee [facility] ACTIVATED PARTIAL THRMPLAS 2019-12-07 21:53:00 Kelly Mittal [facility] POCT GLUCOSE (AUTOMATED) 2019-12-07 21:43:00 [facility] URINE CULTURE 2019-12-07 18:37:00 Migel Vick o [facility] POCT GLUCOSE (AUTOMATED) 2019-12-07 16:46:00 Kyrie Rejiewelina Renee [facility] POCT GLUCOSE (AUTOMATED) 2019-12-07 13:15:00 [facility] GLYCOSYLATED HEMOGLOBIN 2019-12-07 10:56:00 Kryie [facility] (A1C) [facility] ACTIVATED PARTIAL THRMPLAS 2019-12-07 10:56:00 Kelly Mittal [facility] PROTHROMBIN TIME / INR 2019-12-07 03:44:00 Jesse Gee [facility] ACTIVATED PARTIAL THRMPLAS 2019-12-07 03:44:00 Jesse G[facility] LAB ONLY CORONAVIRUS 2019-12-07 03:08:00 Everton Scott [facility] COVID-19 PCR L [facility] CT CHEST PULMONARY 2019-12-07 03:03:46 Everton Scott [facility] ANGIOGRAM [facility] URINALYSIS 2019-12-07 02:34:00 Ever[facility] Scott [facility] XR CHEST 2 VW 2019-12-07 02:05:16 [facility] EKG-12 LEAD 2019-12-07 01:50:52 Jesse Gee [facility] LIPASE 2019-12-07 01:49:00 [facility] TROPONIN I 2019-12-07 01:49:00 [facility] HEPATIC FUNCTION PANEL 2019-12-07 01:49:00 Everton Scott [facility] ([id number]) (ALB,T.PRO,BILI [facility] T,BU/BC,ALT,AST,ALK PHOS) BASIC METABOLIC PANEL (NA, 2019-12-07 01:49:00 Everton Scott [facility] K, CL, CO2, GLUCOSE, BUN, Medica l Branch CREATININE, [place]) CBC WITH DIFFERENTIAL 2019-12-07 01:49:00 Everton Scott [facility] ADC,CLC OR LCC ONLY - 2019-12-07 01:49:00 Everton Scott [facility] INFLUENZA A & B DIRECT Medical B ranch ANTIGEN EKG-12 LEAD 2019-12-07 01:43:35 [facility] HOSPITAL ADMISSION MISC - 2019-12-06 05:01:00 Doctor Ger, [employer] [place] MEDICARE PATIENTS RIGHTS [facility] IMPORTANT MESSAGE XR CHEST 2 VW 2019-11-15 00:28:12 Sara Avery [facility] ADC,CLC OR LCC ONLY - 2019-11-14 23:56:00 Sara Avery [facility] INFLUENZA A & B DIRECT Medical B ranch ANTIGEN NOTICE OF PRIVACY 2019-11-14 23:36:55 Doctor Ger, [facility] PRACTICES [facility] CONSENT/REFUSAL FOR 2019-11-14 23:30:43 Doctor Ger [facility] DIAGNOSIS AND TREATMENT [facility] AUTHORIZATION FOR RELEASE 2019-11-12 06:01:00 Doctor Ger, [facility] Name Medical Branch POCT FLU A AND B 2019-11-09 01:11:00 Jeffrey Ko [facility] (MOLECULAR) [facility] THYROID STIMULATING 2019-10-30 16:31:00 Jose Fraser [facility] HORMONE [facility] MICROALBUMIN URINE 2019-10-30 16:31:00 Jose Fraser [facility] COMP. METABOLIC PANEL 2019-10-30 16:31:00 [id number] LIPID PANEL (72493)(TOTAL 2019-10-30 16:31:00 Jose Fraser [facility] CHOLESTEROL, [facility] TRIGLYCERIDES, HDL) CBC WITH DIFFERENTIAL 2019-10-30 16:31:00 Jose Fraser Un [facility] GLYCOSYLATED HEMOGLOBIN 2019-10-30 16:31:00 Jose Fraser [facility] (A1C) [facility] DISCLOSURE AND CONSENT, 2019-06-05 05:01:00 Doctor Unassigned, [facility] MEDICAL AND SURGICAL [place] [facility] PROCEDURES XR SPINE THORACIC 3 VW 2019-06-03 00:45:31 Selma Staley [facility] XR LUMBAR SPINE 3 VW 2019-06-03 00:45:22 Selma Staley [facility] EXTERNAL PROVIDER RECORDS 2019-05-25 05:01:00 Doctor Ger, [facility] Name [facility] PNEUMOCOCCAL VACCINE, 2019-04-25 19:00:[address] [facility] 23-VALENT (PNEUMOVAX) Medical Br anch NO SHOW OR MISSED 2019-04-25 18:05:48 Doctor Ger, [facility] APPOINTMENT POLICY [place] [facility] ACKNOWLEDGEMENT INSURANCE CORRESPONDENCE 2019-04-16 05:01:00 Doctor Ger, [facility] [place] [facility] [place] Back surgery 2016-09-17 00:00:00 [facility] Colonoscopy [facility] Appendectomy [facility] Tubal ligation [facility] Carpal tunnel [facility] [place] release<sup>1</sup> Plan of Care Planned Activity Planned Date Details Comments Source Future Scheduled 2023-08-19 COVID-19 VACCINE [facility] Test 07:30:26 (#1) [code = COVID-19 VACCINE (#1)] Future Scheduled 2023-08-19 SHINGLES VACCINES [facility] Test 07:30:26 (1 of 2) [code = SHINGLES VACCINES (1 of 2)] Future Scheduled 2023-08-19 [facility] 07:30:26 VACCINES (1 of 3 - Risk 3-dose series) [code = HEPATITIS B VACCINES (1 of 3 - Risk 3-dose series)] Future Scheduled 2023-08-19 INFLUENZA VACCINE [facility] Test 07:30:26 (#1) [code = INFLUENZA VACCINE (#1)] Future Scheduled 2023-07-13 COVID-19 VACCINE [facility] Test 16:08:25 (#1) [code = COVID-19 VACCINE (#1)] Future Scheduled 2023-07-13 SHINGLES VACCINES [facility] Test 16:08:25 (1 of 2) [code = SHINGLES VACCINES (1 of 2)] Future Scheduled 2023-07-13 [facility] Test 16:08:25 VACCINES (1 of 3 - Risk 3-dose series) [code = HEPATITIS B VACCINES (1 of 3 - Risk 3-dose series)] Future Scheduled 2023-07-13 INFLUENZA VACCINE [facility] Test 16:08:25 (#1) [code = INFLUENZA VACCINE (#1)] Future Scheduled 2023-07-13 COVID-19 VACCINE [facility] Test 16:08:25 (#1) [code = COVID-19 VACCINE (#1)] Future Scheduled 2023-07-13 SHINGLES VACCINES [facility] Test 16:08:25 (1 of 2) [code = SHINGLES VACCINES (1 of 2)] Future Scheduled 2023-07-13 [facility] Test 16:08:25 VACCINES (1 of 3 - Risk 3-dose series) [code = HEPATITIS B VACCINES (1 of 3 - Risk 3-dose series)] Future Scheduled 2023-07-13 INFLUENZA VACCINE [facility] Test 16:08:25 (#1) [code = INFLUENZA VACCINE (#1)] Future Scheduled 2023-07-13 COVID-19 VACCINE [facility] Test 16:08:25 (#1) [code = COVID-19 VACCINE (#1)] Future Scheduled 2023-07-13 SHINGLES VACCINES [facility] Test 16:08:25 (1 of 2) [code = SHINGLES VACCINES (1 of 2)] Future Scheduled 2023-07-13 [facility] Test 16:08:25 VACCINES (1 of 3 - Risk 3-dose series) [code = HEPATITIS B VACCINES (1 of 3 - Risk 3-dose series)] Future Scheduled 2023-07-13 INFLUENZA VACCINE [facility] Test 16:08:25 (#1) [code = INFLUENZA VACCINE (#1)] Future Scheduled 2023-03-05 [facility] 16:57:39 (#1) [code = COVID-19 VACCINE (#1)] Future Scheduled 2023-03-05 SHINGLES VACCINES [facility] Test 16:57:39 (1 of 2) [code = SHINGLES VACCINES (1 of 2)] Future Scheduled 2023-03-05 [facility]IS [facility] Test 16:57:39 VACCINES (1 of 3 - Risk 3-dose series) [code = HEPATITIS B VACCINES (1 of 3 - Risk 3-dose series)] Future Scheduled 2023-03-05 INFLUENZA VACCINE [facility] Test 16:57:39 [code = INFLUENZA VACCINE] Future Scheduled 2022-07-19 [facility] Test 09:02:13 (#1) [code = COVID-19 VACCINE (#1)] Future Scheduled 2022-07-19 SHINGLES VACCINES [facility] Test 09:02:13 (1 of 2) [code = SHINGLES VACCINES (1 of 2)] Future Scheduled 2022-07-19 [facility] Test 09:02:13 VACCINES (1 of 3 - Risk 3-dose series) [code = HEPATITIS B VACCINES (1 of 3 - Risk 3-dose series)] Future Scheduled 2022-07-19 INFLUENZA VACCINE [facility] Test 09:02:13 [code = INFLUENZA VACCINE] Future Scheduled 2022-06-19 COVID-19 VACCINE [facility] Test 09:41:32 (#1) [code = COVID-19 VACCINE (#1)] Future Scheduled 2022-06-19 SHINGLES VACCINES [facility] Test 09:41:32 (1 of 2) [code = SHINGLES VACCINES (1 of 2)] Future Scheduled 2022-06-19 [facility]ITIS [facility] Test 09:41:32 VACCINES (1 of 3 - Risk 3-dose series) [code = HEPATITIS B VACCINES (1 of 3 - Risk 3-dose series)] Future Scheduled 2022-06-19 INFLUENZA VACCINE [facility] Test 09:41:32 [code = INFLUENZA VACCINE] Encounters Start End Encounter Admission Attending Care Care Encounter Source Date/Time Date/Time Type Type Clinicians Facility Department ID 2023-08-03 Outpatient Gomez, STLMLC STLC [id number] Common 11:10:00 Alber 06014 [facility] 2023-07-06 Outpatient Gomez, STLMLC STLC [id number] Common 13:55:00 Alber [id number] [facility] 2022-10-06 Outpatient JULIANNE, [facility] 750[address] [facility] 17:09:30 ROBERTO 2022-09-22 Outpatient Gomez, STLMLC STLC [id number] Common 11:31:01 Alber 85282 [facility] 2022-09-01 Outpatient Gomez, STLMLC STLC [id number] Common 09:02:02 Alber 44645 [facility] 2022-07-26 Outpatient Gomez, STLMLC STLC [id number] Common 10:54:04 Alber 37672 [facility] 2022-05-24 Outpatient Gomez, STLMLC STLMLC [id number] Common 15:31:00 Alber 80553 [facility] 2022-05-23 Outpatient Gomez, STLMLC STLMLC [id number] Common 13:30:02 Alber [facility] 2022-05-17 Outpatient Gomez, STLMLC STLC [id number] Common 10:01:02 Alber 98304 [facility] 2021-12-26 Outpatient Gomez, STLMLC STLMLC [id number] Common 13:29:02 Alber [facility] 2021-12-23 Outpatient Gomez, STLMLC STLMLC [id number] Common 11:37:02 Alber [facility] 2021-11-29 Outpatient Gomez, STLMLC STLMLC [id number] Common 10:03:01 Alber [facility] 2021-10-25 Outpatient Gomez, STLMLC STLMLC [id number] Common 13:49:01 Alber [facility] 2021-10-12 Outpatient Gomez, STLMLC STLMLC [id number] Common 14:23:26 Alber [facility] 2021-10-12 Outpatient Gomez, STLMLC STLMLC [id number] Common 14:17:00 Alber [id number] [facility] 2021-07-17 Emergency [facility] [id number] Univers 01:55:47 [facility] 2021-07-16 Emergency [facility] [id number] Univers 11:14:41 [facility] 2021-07-15 Emergency [facility] [id number] Univers 18:08:36 [facility] 2021-07-14 Outpatient Dulce MAURER [facility] BLADE [id number] Univers 17:19:04 CRYSTAL [facility] 2023-02-13 2023-02-13 (TEL) STLMLC STLMLC [id number] Co mmon 00:00:00 00:00:00 [facility] 2023-01-31 2023-01-31 OFFICE STLMLC STLMLC [id number] Co mmon 00:00:00 00:00:00 VISIT [facility] LEVEL 4 [facility] 2023-01-19 2023-01-19 Office Perfecto, 1.2.840.1 [id number] 9986 Methodi 10:00:00 11:07:[address] 3.430.2.7 Hospit a .3.783284 l .8 2023-01-19 2023-01-19 Office Perfecto, 1.2.840.1 [id number] 6684 Methodi 10:00:00 11:07:[address] 3.430.2.7 Hospit a .3.515817 l .8 2023-01-08 2023-01-08 Procedure Perfecto, 1.2.840.1 [id number] 2100 171033 Methodi 11:00:00 11:57:[address] 3.430.2.7 Hospit a .3.804558 l .8 2023-01-08 2023-01-08 Procedure Perfecto, 1.2.840.1 [id number] 2100 783046 Methodi 11:00:00 11:57:[address] 3.430.2.7 Hospit a .3.959749 l .8 2022-12-27 2022-12-27 Outpatient KITTY KAPADIA [facility] [id number] [facility] 19:14:00 19:14:00 BRUNO -[id number] [facility] 2022-10-31 2022-10-31 OFFICE STLMLC STLMLC [id number] Co mmon 00:00:00 00:00:00 VISIT Spirit ESTAB PT - CHI LEVEL 4 [facility] 2022-10-31 2022-10-31 SUB ANNUAL STLMLC STLMLC [id number] Common 00:00:00 00:00:00 MCR Spirit WELLNESS - CHI VISIT [facility] 2022-09-26 2022-09-26 OFFICE STLMLC STLMLC [id number] Co mmon 00:00:00 00:00:00 VISIT Spirit ESTAB PT - CHI LEVEL 4 [facility] 2022-09-22 2022-09-22 (TEL) STLMLC STLMLC [id number] Co mmon 00:00:00 00:00:00 Spirit - [facility] 2022-07-25 2022-07-25 (HOSP F/U) STLMLC STLMLC [id number] Common 00:00:00 00:00:00 [facility] Spiri t Follow Up - CHI [facility] 2022-07-10 2022-07-10 Office Perfecto, 1.2.840.1 [id number] 064400 5740 Methodi 14:45:00 16:19:[address] 3.430.2.7 Hospit a .3.779700 l .8 2022-07-10 2022-07-10 Travel 1.2.840.1 1.2.607.856 2380 649331 Methodi 00:00:00 00:00:[address] 3.430.2.7 0.2.7.3.698 Ho spita .3.316380 084.8 l .8 2022-07-06 2022-07-06 (TEL) STLMLC STLMLC [id number] Co mmon 00:00:00 00:00:00 [facility] 2022-07-06 2022-07-06 (HOSP F/U) STLMLC STLMLC [id number] Common 00:00:00 00:00:[address] [facility] 2022-06-30 2022-06-30 (TEL) STLMLC STLMLC [id number] Co mmon 00:00:00 00:00:00 [facility] 2022-06-19 2022-06-19 Orders Doctor MARTHA 1.2.840.114 [id number] Univers 00:00:00 00:00:00 Only Unassigned, MELIZA 350.1.13.10 ity of [place] [facility] 4.2.7.2.686 Edward as [phone] [place] [address] Branch 2022-05-19 2022-05-19 (TEL) STLMLC STLMLC [id number] Co mmon 00:00:00 00:00:00 [facility] 2022-05-18 2022-05-18 (TEL) STLMLC STLMLC [id number] Co mmon 00:00:00 00:00:00 [facility] 2022-05-17 2022-05-17 OL DIG E/M STLMLC STLMLC [id number] Common 00:00:00 00:00:00 SV 11-20 Spir it MIN - CHI [facility] 2022-05-17 2022-05-17 (TEL) STLMLC STLMLC [id number] Co mmon 00:00:00 00:00:00 Spirit [facility] 2022-04-27 2022-04-27 (TEL) STLMLC STLMLC [id number] Co mmon 00:00:00 00:00:00 Spirit [facility] 2022-04-25 2022-04-25 OFFICE STLMLC STLMLC [id number] Co mmon 00:00:00 00:00:00 VISIT [facility] LEVEL 4 [facility] 2022-02-15 2022-02-15 Office [place]ol[place], 1.2.840.1 [id number] 1279 Methodi 15:45:00 16:54:20 Visit Christina 50677.1.[address] 3.430.2.7 Hospit a .3.929312 l .8 2022-02-15 2022-02-15 Clinical Ivette, 1.2.840.1 [id number] 61752 65791 Methodi 15:15:00 16:54:02 Support Viola 66370.1.[address] 3.430.2.7 Hospit a .3.042587 l .8 2022-02-15 2022-02-15 Clinical Ivette, 1.2.840.1 [id number] 42644 58849 Methodi 15:00:00 16:53:51 Support Viola 14202.1.[address] 3.430.2.7 Hospit a .3.521883 l .8 2022-02-15 2022-02-15 Travel 1.2.840.1 1.2.925.611 6720 854671 Methodi 00:00:00 00:00:[address] 3.430.2.7 0.2.7.3.698 Ho spita .3.541270 084.8 l .8 2022-01-13 2022-01-13 Orders Doctor MARTHA 1.2.840.114 [id number] Univers 00:00:00 00:00:00 Only Unassigned, MELIZA 350.1.13.10 ity of [place] [facility] 4.2.7.2.686 Edward as [phone] [address] 2022-01-11 2022-01-11 Office [place], 1.2.840.1 651201426 [id number] 7068 Methodi 15:30:00 16:09:44 Visit Christina 34756.1.[address] 3.430.2.7 Hospit a .3.580616 l .8 2022-01-11 2022-01-11 Travel 1.2.840.1 1.2.121.116 1744 119403 Methodi 00:00:00 00:00:[address] 3.430.2.7 0.2.7.3.698 Ho spita .3.862705 084.8 l .8 2022-01-02 2022-01-02 Justo Fraser IDANGELA 1.2.840.114 [id number] Univers 00:00:00 00:00:00 Wondiful A [place] 350.1.13.10 ity of [place] PROFESS[place] [phone] [address] 2021-12-28 2021-12-28 OFFICE [facility] [id number] Co mmon 00:00:00 00:00:00 VISIT EST Spir it PT LEVEL 3 - CH[facility] 2021-12-22 2021-12-22 (TEL) [facility] [id number] Co mmon 00:00:00 00:00:00 Spirit - [facility] 2021-12-06 2021-12-06 Justo Fraser IDANGELA 1.2.840.114 [id number] Univers 00:00:00 00:00:00 Wondiful [place] 350.1.13.10 [facility] 4[place]2.7.2.[place] [phone] [address] 2021-11-29 2021-11-29 PREV VISIT [facility] [id number] Common 00:00:00 00:00:00 EST AGE 65 Spi rit & OVER - CHI [facility] 2021-11-18 2021-11-18 (TEL) [facility] [id number] Co mmon 00:00:00 00:00:00 Spirit - [facility] 2021-11-11 2021-11-11 [facility] 1.2.840.114 [id number] Univers 00:00:00 00:00:00 [employer] (TEN) 350.1.13.10 ity [facility] 4.2.7.2.686 Edward as PROFESSIO [phone] Ri dical NAL [address] OFFICE [facility] ONE 2021-11-03 2021-11-03 [facility] [id number] Memoria 16:15:00 16:15:[address] 2021-11-03 2021-11-03 [facility] [id number] Memoria 16:15:00 16:15:[address] 2021-11-03 2021-11-03 Outpatient Julianne, [facility] [id number] 10:15:00 10:15:00 Roberto 01 Ahmad 2021-11-02 2021-11-02 Outpatient JULIANNE, [facility] [id number] [facility] 12:41:00 23:59:00 ROBERTO 2021-11-01 2021-11-02 Outpatient nullFlavo MH Urgent [id number] Memoria 19:10:00 05:59:59 r Care Clear 00 l [facility] 2021-11-01 2021-11-02 Outpatient nullFlavo MH Urgent [id number] Memoria 19:10:00 05:59:59 r Care Clear 00 l [facility] 2021-11-01 2021-11-01 Outpatient MHMG MHMG [id number] 13:10:00 23:59:59 00 2021-11-01 2021-11-01 Outpatient MHIE MHIE [id number] Memoria 13:10:00 13:10:00 00 [facility] 2021-10-26 2021-10-26 OFFICE STLMLC STLMLC [id number] Co mmon 00:00:00 00:00:00 VISIT EST Spir it PT LEVEL 3 - CHI [facility] 2021-09-28 2021-09-28 OFFICE STLMLC STLMLC [id number] Co mmon 00:00:00 00:00:00 VISIT [facility] ESTAB PT - CHI LEVEL 4 [facility] 2021-09-02 2021-09-02 (TEL) STLMLC STLMLC [id number] Co mmon 00:00:00 00:00:00 [facility] 2021-08-29 2021-08-29 OFFICE STLMLC STLMLC [id number] Co mmon 00:00:00 00:00:00 VISIT [facility] PT - CHI LEVEL 4 [facility] 2021-08-25 2021-08-25 (TEL) STLMLC STLMLC [id number] Co mmon 00:00:00 00:00:00 [facility] 2021-08-03 2021-08-03 (TEL) STLMLC STLMLC [id number] Co mmon 00:00:00 00:00:00 [facility] 2021-07-21 2021-07-21 (TEL) STLMLC STLMLC [id number] Co mmon 00:00:00 00:00:00 [facility] 2021-07-19 2021-07-19 OFFICE STLMLC STLMLC [id number] Co mmon 00:00:00 00:00:00 VISIT [facility] PT - CHI LEVEL 4 [facility] 2021-07-06 2021-07-06 (TEL) STLMLC STLMLC [id number] Co mmon 00:00:00 00:00:00 [facility] 2021-06-27 2021-06-27 (TEL) STLMLC STLMLC [id number] Co mmon 00:00:00 00:00:00 [facility] 2021-06-27 2021-06-27 (TEL) STLMLC STLMLC [id number] Co mmon 00:00:00 00:00:00 [facility] 2021-05-19 2021-05-19 OFFICE STLC STLC [id number] Co mmon 00:00:00 00:00:00 VISIT Spirit ESTAB PT - CHI LEVEL 4 [facility] 2021-05-16 2021-05-16 (TEL) [facility] [id number] Co mmon 00:00:00 00:00:00 [facility] 2021-05-04 2021-05-04 Refill Evelio [facility] 1.2.840.114 [id number] Univers 00:00:00 00:00:00 Wondiful A [place] 350.1.13.10 ity of [place] Profess[place] [phone] [address] 2021-05-02 2021-05-02 (TEL) [facility] [id number] Co mmon 00:00:00 00:00:00 [facility] 2021-04-27 2021-04-27 Orders Doctor MARTHA 1.2.840.114 [id number] Univers 00:00:00 00:00:00 Only Unassigned, MELIZA 350.1.13.10 ity [place] [facility] 4.2.7.2.686 Edward as [phone] [address] 2021-04-20 2021-04-20 OFFICE [facility] [id number] Co mmon 00:00:00 00:00:00 VISIT NEW Spir it PT LEVEL 4 - [facility] 2021-03-14 2021-03-14 Outpatient R VIDAL [facility] [id number] Univers 14:40:00 14:40:00 LUIS moralesy o f [facility] 2021-03-08 2021-03-08 Mayonnaise Mixer Lab, Adc El Fong I [facility] 1.2. 840.114 [id number] Univers 15:45:57 16:05:57 Visit [facility] 350.1.13.1 0 ity of [place] 4.2.7.2.686 Edward as Professio [phone] [address] Office Building One 2021-03-08 2021-03-08 [facility] 1.2.840.114 [id number] Univers 14:56:34 15:26:34 Visit [facility] 350.1.13.10 i ty of [place] 4.2.7.2.686 Edward as Professio [phone] [address] One 2021-03-08 2021-03-08 Outpatient R [facility] [id number] Univers 15:00:00 15:00:00 EDWARD ity o f [facility] 2021-03-07 2021-03-07 Orders Doctor MARTHA 1.2.840.114 [id number] Univers 00:00:00 00:00:00 Only Unassigned, MELIZA 350.1.13.10 ity [place] [facility] 4.2.7.2.686 Edward as [phone] [address] 2021-03-05 2021-03-05 [facility] 1.2.840.114 [id number] Univers 00:00:00 00:00:00 [facility] 350.1.13.10 it y of [place] 4.2.7.2.686 Edward as Professio [phone] [address] Office [facility] One 2021-03-05 2021-03-05 [facility]ang [facility] 1.2.840.114 [id number] Univers 00:00:00 00:00:00 Wondiful A [place] 350.1.13.10 ity of [place] [phone] [address] 2021-02-22 2021-02-22 [facility] 1.2.840.114 [id number] Univers 00:00:00 00:00:00 Wondiful A Health 350.1.13.10 ity of [place] 4.2.7.2.686 Edward as Professio [phone] [address] Office [facility] One 2021-02-21 2021-02-21 Day [facility] [id number] Memoria 15:04:00 20:44:00 Surgery r [place] 00 l [facility] 2021-02-21 2021-02-21 Day Manas [facility] [id number] Memoria 15:04:00 20:44:00 Surgery r [place] 00 l [facility] 2021-02-21 2021-02-21 Outpatient EKHAESE, [facility] [place] 7500 MH 10:04:00 15:44:00 OBONORUMA Sout hea [facility] 2021-02-21 2021-02-21 Outpatient Ekhaese, MHSE MHSE [id number] 10:04:00 15:44:00 [place] 00 [place] 2021-02-21 2021-02-21 Outpatient Ekhaese, MHSE MHSE [id number] 12:30:00 12:30:00 [place] 00 Imariabe 2021-02-09 2021-02-09 Orders Doctor THOMAS 1.2.840.114 [id number] Univers 00:00:00 00:00:00 Only Unassigned, MELIZA 350.1.13.10 [facility] 4.2.7.2.686 Edward as [phone] [address] 2021-02-07 2021-02-07 Office Kt [facility] 1.2.840.114 [id number] Univers 15:40:09 15:55:09 Visit [facility] 350.1.13.10 it y of Edjose luis [place] 4.2.7.2.686 Edward as Professio [phone] Ri dical nal [address] [place] Office Building One 2021-02-07 2021-02-07 Outpatient Dulce DORSEY [facility] [id number] Univers 15:45:00 15:45:00 OMID ity of [facility] 2021-02-07 2021-02-07 Case Evelio [facility] 1.2.840.114 [id number] Univers 00:00:00 00:00:00 Management Wonfarrukh [facility] 350.1.13.10 ity of [place] 4.2.7.2.686 Edward as Professio [phone] Ri dical nal 044 [facility] One 2021-02-04 2021-02-04 Urgent Provider, [facility] 1.2.840.114 [id number] Univers 16:53:21 17:45:02 Care Martha [facility] 350.1.13.10 ity of [place] 4.2.7.2.686 Edward as Professio [phone] [address] One 2021-02-04 2021-02-04 Outpatient R RICH [facility] [id number] Univers 17:00:00 17:00:00 MARTHA ity of [facility] 2021-01-27 2021-01-27 Patient Doctor [facility] 1.2.840.114 [id number] Univers 00:00:00 00:00:00 Secure Msg Unassigned, [place] [id number] ity of [id number] [phone] [facility] 059 [facility] 2021-01-26 2021-01-26 Outpatient R [facility] [id number] Univers 09:40:00 09:40:00 ity of [facility] 2021-01-26 2021-01-26 Mayonnaise [facility], Adc Fam Pob I [facility] 1.2. [id number] [id number] Univers 08:47:10 09:15:12 Visit Jose [facility] [id number] 0 ity of [place] [id number] [place] as Professio [phone] [address] One 2021-01-25 2021-01-25 [facility] 1.2.840.114 [id number] Univers 14:45:18 15:28:27 Visit Wondiful [facility] [id number] ity of [place] [id number] [place] as Professio [phone] [address] 2021-01-25 2021-01-25 [facility] [id number] Univers 15:00:00 15:00:00 WONDIFUL ity o f [facility] 2021-01-19 2021-01-19 Outpatient R SALEEMMEAGAN MURRIETAERENDIRA [facility] [id number] Univers 14:00:00 14:00:00 SAKINA MILLAN itewelina [facility] 2021-01-19 2021-01-19 [facility] 1.2.840.114 [id number] Univers 00:00:00 00:00:00 Wonkirstenful Pablo Medina [id number] ity of [place] [id number] [facility] [phone] [address] 2020-12-07 2020-12-07 [facility] [facility] [id number] Univers 10:15:00 10:15:00 SHEEBA padron o f [facility] 2020-12-01 2020-12-01 [facility] 1.2.840.114 [id number] Univers 00:00:00 00:00:00 Wondiful A [facility] 350.1.13.10 ity of [place] 4.2.7.2.686 Edward as Professio [phone] [address] Office Building One 2020-11-17 2020-11-17 Outpatient R SALEEMMEAGAN MURRIETAALNamrata [facility] [id number] Univers 14:30:00 14:30:00 JEFF MILLANNamrata [facility] 2020-11-14 2020-11-14 Emergency [facility] 1.2.270.312 [id number] Univers 12:38:00 15:59:00 Patricia Medina 350.1.13.10 i ty of [place] [phone] [facility] [address] [place] 2020-11-14 2020-11-14 Orders Doctor THOMAS 1.2.840.114 [id number] Univers 00:00:00 00:00:00 Only Unassigned, MELIZA 350.1.13.10 ity of [place] [facility] 4.2.7.2.686 Edward as [phone] [facility] [address] [place] 2020-11-09 2020-11-09 Office [facility] 1.2.840.114 [id number] Univers 10:21:15 11:08:18 Visit Sheeba Adam 350.1.13.10 ity of [place] [phone] Ri dical nal 205 [facility] 2020-11-09 2020-11-09 Out[facility] [id number] Univers 10:15:00 10:15:00 SHEEBA padron o f [facility] 2020-10-22 2020-10-22 Refgaurang [facility] 1.2.840.114 [id number] Univers 00:00:00 00:00:00 Wondiful A Health 350.1.13.10 ity of [place] 4.2.7.2.686 [place] as Professio [phone] [facility] [address] [place] Office [facility] One 2020-10-13 2020-10-13 Office [facility] 1.2.631.725 [id number] Univers 14:30:00 15:00:00 Visit Sakina Medina 350.1.13.10 ity of [place].2.[place] [phone] [facility] 085 [facility] 2020-10-13 2020-10-13 Outpatient R SAKINA MILLAN [facility] [id number] Univers 14:30:00 14:30:00 SAKINA MILLAN ity of [facility] 2020-10-09 2020-10-09 Patient [facility] 1.2.840.114 [id number] Univers 00:00:00 00:00:00 Outreach Henry PRIMARY 350.1.13.[address] [facility] 4.2.7.2.[place] [phone] Ri dicva [address] [place] 2020-10-08 2020-10-08 Orders Doctor MARTHA 1.2.840.114 [id number] Univers 00:00:00 00:00:00 Only Unassigned, MELIZA 350.1.13.10 ity of [place] [facility] 4.2.7.2.686 Edward as [phone] [address] 2020-10-06 2020-10-06 Orders Doctor MARTHA 1.2.840.114 [id number] Univers 00:00:00 00:00:00 Only Unassigned, MELIZA 350.1.13.10 ity of [place] [facility] 4.2.7.2.686 Edward as [phone] [address] 2020-10-05 2020-10-05 Outpatient R ROSAS [facility] [id number] Univers 14:00:00 14:00:00 SENDIL ity of [facility] 2020-10-05 2020-10-05 Orders Doctor MARTHA 1.2.840.114 [id number] Univers 00:00:00 00:00:00 Only Unassigned, MELIZA 350.1.13.10 ity of [place] [facility] 4.2.7.2.686 Edward as [phone] [address] 2020-10-05 2020-10-05 Telephone [facility] 1.2.840.114 [id number] Univers 00:00:00 00:00:00 Wondiful A Health 350.1.13.10 ity of [place] 4.2.7.2.686 Edward as Professio [phone] [facility] [address] [place] Office Building One 2020-09-28 2020-09-28 Office [facility] 1.2.840.114 [id number] Univers 09:23:42 10:43:16 Visit Sheeba Medina 350.1.13.10 ity of [place]2.7.2.[place] [phone] Ri dical nal [address] [place] Building 2020-09-28 2020-09-28 Outpatient [facility] [id number] Univers 09:15:00 09:15:00 SHEEBA contreras [facility] 2020-09-28 2020-09-28 Telephone [facility] 1.2.840.114 [id number] Univers 00:00:00 00:00:00 Wondiful A Health 350.1.13.10 ity of [place] 4.2.7.2.686 Edward as Professio [phone] [address] Office [facility] One 2020-09-21 2020-09-21 Mayonnaise Mixer Lab, Adc Fam Pob I [facility] 1.2. 840.114 [id number] Univers 13:34:10 13:54:10 Visit Ronal Fraserfarrukh [facility] 350.1.13.1 0 ity of [place] 4.2.7.2.686 Edward as Professio [phone] [address] Office [facility] One 2020-09-21 2020-09-21 Office [facility] 1.2.840.114 [id number] Univers 12:43:33 13:35:18 Visit Wondiful A Health 350.1.13.10 ity of [place] 4.2.7.2.686 Edawrd as Professio [phone] [address] One 2020-09-21 2020-09-21 Outpatient R EVELIO [facility] [id number] Univers 13:00:00 13:00:00 WONDIFUL ity o f [facility] 2020-09-06 2020-09-06 Refill [facility] 1.2.840.114 [id number] Univers 00:00:00 00:00:00 Wondiful A [place] 350.1.13.10 ity of [place] 4.2.7.2.[place] [phone] [address] 2020-09-01 2020-09-01 Outpatient R LAKSHMI [facility] [id number] Univers 13:30:00 13:30:00 FRANCISCA ity of [facility] 2020-09-01 2020-09-01 Case [facility] 1.2.840.114 [id number] Univers 00:00:00 00:00:00 Management Wondiful A Health 350.1.13.10 ity of [place] 4.2.7.2.686 [place] as Professio [phone] [address] 2020-08-31 2020-08-31 Refgaurang FraserUN[facility] 1.2.840.114 [id number] Univers 00:00:00 00:00:00 Wondiful A Health 350.1.13.10 ity of [place] 4.2.7.2.686 [place] as Professio [phone] Ri dical nal [address] [place] Office Building One 2020-08-30 2020-08-30 Emergency Lona Kelley [facility] 1.2.840.114 [id number] Univers 18:51:00 23:05:00 Shahla [place] 350.1.13.10 i ty of [place] 4.2.7.2.[place] N[place] [phone] [facility] [address] [place] 2020-08-30 2020-08-30 [facility] 1.2.840.114 [id number] Univers 00:00:00 00:00:00 Wondiful A Health 350.1.13.10 ity of [place] 4.2.7.2.686 [place] as Professio [phone] Ri dic[address] Office [facility] One 2020-08-26 2020-08-26 [facility] 1.2.840.114 [id number] Univers 00:00:00 00:00:00 Management Wondiful A Health 350.1.13.10 ity of [place] 4.2.7.2.686 [place] as Professio [phone] [address] Office [facility] One 2020-08-25 2020-08-25 [facility] 1.2.818.944 [id number] Univers 13:02:50 13:10:00 Encounter Wondiful A [place] 350.1.13.10 ity of [place]2.7.2.[place] [phone] [facility] [address] [place] 2020-08-25 2020-08-25 [facility] 1.2.508.601 [id number] Univers 12:47:30 13:01:00 Encounter Wondiful A [place] 350.1.13.10 ity of [place] 4.2.7.2.[place] N[place] [phone] [facility] [address] [place] 2020-08-25 2020-08-25 Outpatient R [facility] [id number] Univers 00:00:00 00:00:00 WONDIFUL ity o f [facility] 2020-08-25 2020-08-25 Refill [facility] 1.2.840.114 [id number] Univers 00:00:00 00:00:00 Luis [place] 350.1.13.10 ity of [place].2.7.2.[place] [phone] [facility] 059 [facility] 2020-08-25 2020-08-25 Case [facility] 1.2.840.114 [id number] Univers 00:00:00 00:00:00 Management Wondiful A Health 350.1.13.10 ity of [place] 4.2.7.2.686 Edward as Professio [phone] [facility] [address] [place] Office [facility] 2020-08-24 2020-08-24 Mayonnaise Mixer Lab, Adc Fam Pob I [facility] 1.2. 840.114 [id number] Univers 10:22:51 10:42:51 Visit Jose [facility] 350.1.13.1 0 ity of [place] 4.2.7.2.686 Edward as Professio [phone] [address] Office [facility] 2020-08-24 2020-08-24 Outpatient R EVELIO [facility] [id number] Univers 10:20:00 10:20:00 WONDIFUL ity o f [facility] 2020-08-23 2020-08-23 Office [facility] 1.2.840.114 [id number] Univers 09:39:39 17:20:11 Visit Wondiful A Health 350.1.13.10 ity of [place] 4.2.7.2.686 Edward as Professio [phone] [address] Office [facility] One 2020-08-23 2020-08-23 Outpatient R EVELIO [facility] [id number] Univers 16:15:00 16:15:00 WONDIFUL ity o f [facility] 2020-08-16 2020-08-16 Telephone [facility] 1.2.840.114 [id number] Univers 00:00:00 00:00:00 Wondiful A Health 350.1.13.10 ity of [place] 4.2.7.2.686 Edward as Professio [phone] Ri dical formerly [facility] 044 [facility] 2020-08-13 2020-08-13 Refgaurang Johnsonzabrina [facility] 1.2.840.114 [id number] Univers 00:00:00 00:00:00 Wondiful A Health 350.1.13.10 ity of [place] 4.2.7.2.686 Edward as Professio [phone] [facility] 044 [facility] 2020-08-11 2020-08-11 Office Monty [facility] 1.2.106.781 [id number] Univers 15:12:55 15:42:55 Visit Sakina Medina 350.1.13.10 ity of [place].2.7.2.[place] [phone] [facility] 085 [facility] 2020-08-11 2020-08-11 Outpatient R SAKINA MILLAN [facility] [id number] Univers 15:30:00 15:30:00 SAKINA MILLAN itewelina of [facility] 2020-08-11 2020-08-11 Orders Doctor MARTHA 1.2.840.114 [id number] Univers 00:00:00 00:00:00 Only Unassigned, MELIZA 350.1.13.10 ity [place] [facility] 4.2.7.2.686 Edward as [phone] [address] 2020-08-09 2020-08-09 Office Vidal [facility] 1.2.840.114 [id number] Univers 14:34:46 15:13:12 Visit Luis Medina 350.1.13.10 ity of [place].2.7.2.[place] [phone] Ri dicva nal 059 [facility] 2020-08-09 2020-08-09 Outpatient R VIDAL [facility] [id number] Univers 14:40:00 14:40:00 LUIS padron o f [facility] 2020-07-17 2020-07-17 Outpatient R SAKINA MILLAN [facility] [id number] Univers 20:00:00 20:00:00 SAKINA MILLAN ity of [facility] 2020-07-17 2020-07-17 Orders Doctor MARTHA 1.2.840.114 [id number] Univers 00:00:00 00:00:00 Only UnassignedMELIZA 350.1.13.10 ity of [place] [facility] 4.2.7.2.686 Edward as [phone] [facility] [address] [place] 2020-07-16 2020-07-16 Mayonnaise Mixer 1, [facility] Sleep Lab Bed [facility] 1. 2.840.114 [id number] Univers 13:58:59 16:28:59 Visit Monty Sakina Medina 350.1.13. 10 ity of [place] 4.2.7.2.[place] N[place] [phone] [facility] [address] 2020-07-15 2020-07-15 Laboratory Only, [facility] Test [facility] 1.2.840. 114 [id number] Univers 11:55:53 12:10:53 Only Kevin Greene 350.1.13.10 ity of [place] 4.2.7.2.[place] N[place] [phone] [facility] [address] 2020-07-15 2020-07-15 Outpatient R [facility] [id number] Univers 11:45:00 11:45:00 ity of [facility] 2020-07-09 2020-07-09 Office [facility] 1.2.840.114 [id number] Univers 11:44:34 12:19:20 Visit Luis Medina 350.1.13.10 ity of [place] 4.2.7.2.686 [place] [facility] [phone] Ri dical formerly [facility] 059 [facility] 2020-07-09 2020-07-09 Out[facility] [id number] Univers 11:40:00 11:40:00 LUIS padron o f [facility] 2020-07-09 2020-07-09 Refgaurang Fraser [facility] 1.2.840.114 [id number] Univers 00:00:00 00:00:00 Ronaldikyle Medina 350.1.13.10 ity of [place] 4.2.7.2.[place] Profess[place] [phone] Ri nikkost. [facility] 044 [facility] 2020-07-07 2020-07-07 Office Monty [facility] 1.2.815.625 [id number] Univers 14:17:59 14:47:59 Visit Sakina T [place] 350.1.13.10 ity of [place] 4.2.7.2.[place] Profess[place] [phone] Ri nikkost. [facility] 085 [facility] 2020-07-07 2020-07-07 Outpatient R SAKINA MILLAN [facility] [id number] Univers 14:30:00 14:30:00 SAKINA MILLAN ity of [facility] 2020-07-06 2020-07-06 Refill [facility] 1.2.840.114 [id number] Univers 00:00:00 00:00:00 Wondiful A Health 350.1.13.10 ity of [place] 4.2.7.2.686 Edward as Professio [phone] [address] 2020-06-29 2020-06-29 Telephone Evelio [facility] 1.2.840.114 [id number] Univers 00:00:00 00:00:00 Wondiful A Health 350.1.13.10 ity of [place] 4.2.7.2.686 Edward as Professio [phone] [address] 2020-06-28 2020-06-28 Case Evelio [facility] 1.2.840.114 [id number] Univers 00:00:00 00:00:00 Management Wondiful A Health 350.1.13.10 ity of [place] 4.2.7.2.686 Edward as Professio [phone] [address] 2020-06-21 2020-06-21 Mayonnaise Mixer Lab, Adc Fam Pob I [facility] 1.2. 840.114 [id number] Univers 15:51:13 16:01:13 Visit Fifi Fraserful A Health 350.1.13.1 0 ity of [place] 4.2.7.2.686 Edward as Professio [phone] Ri dical nal [address] [place] Building One 2020-06-21 2020-06-21 Office Evelio [facility] 1.2.840.114 [id number] Univers 14:55:43 15:53:28 Visit Wonfarrukh A Health 350.1.13.10 ity of [place] 4.2.7.2.686 Edward as Juan Pablo [phone] Ri dical nal [address] [place] Office [facility] One 2020-06-21 2020-06-21 Outpatient R EVELIO [facility] [id number] Univers 15:15:00 15:15:00 WONDIFUL ity o f [facility] 2020-06-17 2020-06-17 Mayonnaise Mixer Tech, Adc Sleep Lab [facility] 1.2 .840.114 [id number] Univers 13:00:28 13:15:28 Visit Sakina Millan 350.1.13. 10 ity of [place] 4.2.7.2.686 [facility] [phone] [facility] [address] 2020-06-17 2020-06-17 Outpatient R [facility] [id number] Univers 13:00:00 13:00:00 ity of [facility] 2020-06-15 2020-06-15 Outpatient R SAKINA MILLAN [facility] [id number] Univers 14:00:00 14:00:00 SAKINA MILLAN ity of [facility] 2020-06-11 2020-06-11 Outpatient R [facility] [id number] Univers 15:00:00 15:00:00 ity of [facility] 2020-06-11 2020-06-11 Laboratory Only, Adc Test [facility] 1.2.840. 114 [id number] Univers 14:10:00 14:25:00 Only Kevin Greene 350.1.13.10 ity of [place] 4.2.7.2.686 [facility] [phone] [facility] [address] [place] 2020-06-11 2020-06-11 Orders Doctor THOMAS 1.2.840.114 [id number] Univers 00:00:00 00:00:00 Only Unassigned, MELIZA 350.1.13.10 ity of [place] [facility] 4.2.7.2.686 Edward as [phone] [address] 2020-06-09 2020-06-09 [facility] 1.2.840.114 [id number] Univers 14:14:37 14:57:58 Visit Qiangjun [place] 350.1.13.10 ity of [place] 4.2.7.2.[place] [phone] Ri dical nal 059 [facility] 2020-06-09 2020-06-09 Outpatient [facility] [id number] Univers 14:20:00 14:20:00 QIANGJUN ity o f [facility] 2020-06-09 2020-06-09 Telephone [facility] 1.2.840.114 [id number] Univers 00:00:00 00:00:00 Wondiful A Health 350.1.13.10 ity of [place] 4.2.7.2.686 Edward as Professio [phone] [facility] 044 [facility] 2020-06-08 2020-06-08 Outpatient R EVELIO [facility] [id number] Univers 11:45:00 11:45:00 WONDIFUL ity o f [facility] 2020-06-07 2020-06-07 Office [facility] 1.2.840.114 [id number] Univers 10:11:55 10:51:44 Visit Wondiful A Health 350.1.13.10 ity of [place] 4.2.7.2.686 Edward as Professio [phone] [facility] 044 [facility] 2020-06-07 2020-06-07 Outpatient [facility] [id number] Univers 10:00:00 10:00:00 WONDIFUL ity o f [facility] 2020-06-07 2020-06-07 Refill [facility] 1.2.840.114 [id number] Univers 00:00:00 00:00:00 Wondiful A Health 350.1.13.10 ity of [place] 4.2.7.2.686 Edward as Professio [phone] [facility] [address] [place] Office [facility] 2020-06-03 2020-06-03 Emergency [place], [facility] 1.2.840.114 [id number] Univers 15:17:00 18:33:00 Ko B [place] 350.1.13.10 i ty of [place] 4.2.7.2.[place] Nitro [phone] [address] 2020-06-03 2020-06-03 Telephone [facility] 1.2.840.114 [id number] Univers 00:00:00 00:00:00 Wondiful A Health 350.1.13.10 ity of [place] 4.2.7.2.686 Edward as Professio [phone] [address] 2020-06-01 2020-06-01 Refill [place] [facility] 1.2.840.114 [id number] Univers 00:00:00 00:00:00 Wondiful A [place] 350.1.13.10 ity of [place] 4.2.7.2.[place] [phone] [address] 2020-05-10 2020-05-27 Office [facility] 1.2.840.[id number] [facility] 13:59:31 17:39:50 Visit Wonkirstenful A [place] 350.1.13.10 ity of [place] 4.2.7.2.686 [place] Profess[place] [phone] [address] 2020-05-23 2020-05-23 Refill Evelio [facility] 1.2.840.114 [id number] [facility] Univers 00:00:00 00:00:00 Wondiful A Health 350.1.13.10 ity of [place] 4.2.7.2.686 Edward as Professio [phone] [address] 2020-05-10 2020-05-10 Mayonnaise Mixer 2, Adc Lab [facility] 1.2.840.114 [id number] Univers 15:20:43 15:35:43 Visit Ronal Fraserfarrukh A [place] 350.1.13. 10 ity of [place] 4.2.7.2.[place] [phone] Me dical nal 353 [facility] 2020-05-10 2020-05-10 Outpatient R EVELIO [facility] [id number] Univers 15:30:00 15:30:00 WONDIFUL ity o f [facility] 2020-04-16 2020-04-16 Refill [facility] 1.2.840.114 [id number] Univers 00:00:00 00:00:00 Wondiful A Health 350.1.13.10 ity of [place] 4.2.7.2.686 Edward as Professio [phone] Ri dicst. [facility] [address] [place] [address] [facility] 2020-04-13 2020-04-13 Telephone [facility] 1.2.840.114 [id number] Univers 00:00:00 00:00:00 Wondiful A [place] 350.1.13.10 ity of [place] 4.2.7.2.[place] [phone] Ri dicst. [facility] 044 [facility] 2020-04-13 2020-04-13 Refill [facility] 1.2.840.114 [id number] Univers 00:00:00 00:00:00 Wondiful A Health 350.1.13.10 ity of [place] 4.2.7.2.686 Edward as Professio [phone] [facility] 044 [facility] 2020-04-12 2020-04-12 Orders Doctor MARTHA 1.2.840.114 [id number] Univers 00:00:00 00:00:00 Only Unassigned, MELIZA 350.1.13.10 ity of [place] [facility] 4.2.7.2.686 Edward as [phone] [address] 2020-02-26 2020-02-26 Office [facility] 1.2.840.114 [id number] Univers 14:19:17 15:14:21 Visit Bhavin Medina 350.1.13.10 i ty of [place] 4.2.7.2.[place] [phone] Ri dicva nal 085 [facility] 2020-02-26 2020-02-26 Outpatient R BHAVIN CLAYTON [facility] [id number] Univers 14:20:00 14:20:00 BHAVIN CLAYTON i of [facility] 2020-02-23 2020-02-23 Telephone [facility], [facility] 1.2.840.114 [id number] Univers 00:00:00 00:00:00 Endoscopy ICAL 350.1.13.10 ity of [place] 4.2.7.2.686 Edward as BLDG [phone] [facility] [address] [place] 2020-02-16 2020-02-16 Orders Doctor MARTHA 1.2.840.114 [id number] Univers 00:00:00 00:00:00 Only Unassigned, MELIZA 350.1.13.10 ity [place] [facility] 4.2.7.2.686 Edward as [phone] [facility] [address] [place] 2020-01-20 2020-01-20 Refill [facility] 1.2.840.114 [id number] Univers 00:00:00 00:00:00 Wondiful A Health 350.1.13.10 ity of [place] 4.2.7.2.686 Edward as Professio [phone] Ri dical nal [address] [place] [address] [facility] 2020-01-19 2020-01-19 Telephone [facility] 1.2.037.180 [id number] Univers 00:00:00 00:00:00 Qiangjun [place] 350.1.13.10 ity of [place].2.[place] [phone] Ri dical nal 059 [facility] 2020-01-16 2020-01-16 Telephone [facility] 1.2.840.114 [id number] Univers 00:00:00 00:00:00 Wondiful A Health 350.1.13.10 ity of [place] 4.2.7.2.686 Edward as Professio [phone] Ri dical nal [address] [place] [address] [facility] One 2020-01-12 2020-01-12 Telephone [facility] 1.2.840.114 [id number] Univers 00:00:00 00:00:00 Wondiful A [place] 350.1.13.10 ity of [place] 4[place].7.2.[place] [phone] [address] 2020-01-12 2020-01-12 Orders Doctor MARTHA 1.2.840.114 [id number] Univers 00:00:00 00:00:00 Only Unassigned, MELIZA 350.1.13.10 ity [place] [facility] 4.2.7.2.686 Edward as [phone] [address] 2020-01-05 2020-01-05 Outpatient [facility] [id number] Univers 08:15:00 08:15:00 WONDIFUL ity o f [facility] 2020-01-05 2020-01-05 Telemedici [facility] 1.2.840.114 [id number] Univers 07:03:47 07:33:47 ne Visit Wondiful A [place] 350.1.13.10 ity of [place] 4.2.7.2.[place] [phone] [address] 2019-12-30 2019-12-30 Telephone [facility] 1.2.840.114 [id number] Univers 00:00:00 00:00:00 Wondiful A Health 350.1.13.10 ity of [place] 4.2.7.2.686 Edward as Professio [phone] [address] One 2019-12-23 2019-12-23 Telemedici [facility] 1.2.840.114 [id number] Univers 07:43:58 15:05:06 ne Visit Wondiful A [place] 350.1.13.10 [id number] [phone] [address] 2019-12-23 2019-12-23 Outpatient R EVELIO [facility] [id number] Univers 13:00:00 13:00:00 WONDIFUL ity o f [facility] 2019-12-21 2019-12-21 Refill [facility] 1.2.840.114 [id number] Univers 00:00:00 00:00:00 Wondiful A Health [id number] ity of [place] [id number] [place] Professio [phone] [place] [address] [address] [facility] 2019-12-11 2019-12-11 Transition Gabriel Donnyxavi 1.2.840.114 [id number] Univers 00:00:00 00:00:00 of Care Sofia Price [id number] [id number] [address] 2019-12-10 2019-12-10 Transition Donny Riosxavi 1.2.840.114 [id number] Univers 00:00:00 00:00:00 of Care Sofia Price [id number] [phone] [address] 2019-12-10 2019-12-10 Telephone Evelio IDANGELA 1.2.840.114 [id number] Univers 00:00:00 00:00:00 [place]iful A [place] 350.1.13.10 it[id number] [phone] [address] 2019-12-06 2019-12-09 Inpatient X KYRIE IDANGELA LANA [id number] Univers 20:15:25 19:57:00 MERCEwelina ity of [facility] 2019-12-06 2019-12-09 [facility] Sonia Everton Collins [facility] 1.2.840.114 [id number] Univers 20:15:25 19:57:00 Encounter Kelly Mittal 350.1.13.10 ity of [place] [phone] [place] [id number] [place] 2019-12-09 2019-12-09 Refill Evelio [facility] 1.2.840.114 [id number] Univers 00:00:00 00:00:00 [facility] 350.1.13.10 ity of [place] 4.2.7.2.686 Edward as Professio [phone] [place] [address] [address] Building [facility] 2019-11-19 2019-11-19 Telephone Motility, [facility] 1.2.840.114 [id number] Univers 00:00:00 00:00:00 Endoscopy ICAL 350.1.13.10 ity of SCIENC[place] 4.2.7.2.686 Edward as BLDG [phone] [facility] [address] [place] 2019-11-18 2019-11-18 Telephone Motility, [facility] 1.2.840.114 [id number] Univers 00:00:00 00:00:00 Endoscopy ICAL 350.1.13.10 ity of [place]ENC[place] 4.2.7.2.686 Edward as BLDG [phone] [address] 2019-11-14 2019-11-14 Emergency [facility] [id number] Univers 18:32:04 20:53:00 PATRICIA ity [facility] 2019-11-14 2019-11-14 Emergency [facility] 1.2.014.035 [id number] Univers 18:32:04 20:53:00 Patricia Medina 350.1.13.10 i ty of [place] 4.2.7.2.686 [place] [facility] [phone] [facility] [address] [place] 2019-11-14 2019-11-14 Orders Doctor MARTHA 1.2.840.114 [id number] Univers 00:00:00 00:00:00 Only Unassigned, MELIZA 350.1.13.10 ity of [place] 4.2.7.2.686 Edward as [phone] [address] 2019-11-13 2019-11-13 Telephone Motility, [facility] 1.2.840.114 [id number] Univers 00:00:00 00:00:00 Endoscopy ICAL 350.1.13.10 ity of [place] 4.2.7.2.686 Edward as BLDG [phone] [facility] [address] [place] 2019-11-12 2019-11-12 Orders Doctor MARTHA 1.2.840.114 [id number] Univers 00:00:00 00:00:00 Only Unassigned, MELIZA 350.1.13.10 ity of [place] [facility] 4.2.7.2.686 Edward as [phone] [address] 2019-11-08 2019-11-08 Urgent Jeffrey Ko [facility] 1.2.840.11 [id number] Univers 18:44:29 18:59:29 Care Unknown, Attending Health 350.1.13.10 ity of Surgical 4.2.7.2.686 Edward as Specialti [phone] Ri dical es 370 [facility] 2019-11-06 2019-11-06 Telephone Motility, [facility] 1.2.840.114 [id number] Univers 00:00:00 00:00:00 Endoscopy ICAL 350.1.13.10 ity of [place] 4.2.7.2.686 Edward as BLDG [phone] [facility] [address] [place] 2019-11-04 2019-11-04 Telephone Motility, [facility] 1.2.840.114 [id number] Univers 00:00:00 00:00:00 Endoscopy ICAL 350.1.13.10 ity of [place] 4.2.7.2.686 Edward as BLDG [phone] [address] 2019-10-30 2019-10-30 Office Evelio [facility] 1.2.840.114 [id number] Univers 09:26:55 10:26:49 Visit [facility] 350.1.13.10 ity of [place] 4.2.7.2.686 Edward as Professio [phone] Ri dical nal [address] [place] [address] One 2019-10-30 2019-10-30 Jose Maria Fraser [facility] 1.2.840.114 [id number] Univers 00:00:00 00:00:00 Management [facility] 350.1.13.10 ity of [place] 4.2.7.2.686 Edward as Professio [phone] Ri dical nal [address] [place] [address] 2019-10-30 2019-10-30 Refill Evelio [facility] 1.2.840.114 [id number] Univers 00:00:00 00:00:00 [facility] 350.1.13.10 ity of [place] 4.2.7.2.686 Edward as Professio [phone] Ri dical nal [address] [place] [address] 2019-10-21 2019-10-21 Telephone Motility, [facility] 1.2.840.114 [id number] Univers 00:00:00 00:00:00 Endoscopy ICAL 350.1.13.10 ity of [place]ENC[place] 4.2.7.2.686 Edward as BLDG [phone] [facility] [address] [place] 2019-10-09 2019-10-09 Telephone Motility, [facility] 1.2.840.114 [id number] Univers 00:00:00 00:00:00 Endoscopy ICAL 350.1.13.10 ity of [place] 4.2.7.2.686 Edward as BLDG [phone] [facility] [address] [place] 2019-08-27 2019-08-27 Outpatient R EVELIO [facility] [id number] Univers 09:22:45 23:59:00 WONDIFUL ity o f [facility] 2019-06-06 2019-06-06 Prep For [facility] 1.2.840.114 [id number] Univers 00:00:00 00:00:00 Surgery Francisca Medina 350.1.13.10 ity of [place] Profess[place] [phone] Ri dical nal 204 [facility] 2019-06-05 2019-06-05 [facility] 1.2.217.270 [id number] Univers 12:56:30 14:21:14 Visit Crystal Medina 350.1.13.10 i ty of [place].2.[place] Profess[place] [phone] Ri dical nal 377 [facility] 2019-06-05 2019-06-05 Orders Doctor THOMAS 1.2.840.114 [id number] Univers 00:00:00 00:00:00 Only Unassigned, MELIZA 350.1.13.10 ity of [place] [facility] 4.2.7.2.686 Edward as [phone] [facility] [address] [place] 2019-06-02 2019-06-02 [facility] 1.2.840.114 [id number] Univers 18:45:00 23:59:00 Encounter [facility] 350.1.13.10 ity of Surgical 4.2.7.2.686 [place] as Specialti [phone] Ri dical es 808 [facility] 2019-06-02 2019-06-02 Urgent Selma Staley [facility] 1.2.840.114 [id number] Univers 18:15:15 19:44:45 Care Unknown, Attending Health 350.1.13.10 ity of Surgical 4.2.7.2.686 [place] as Specialti [phone] Ri dical es 370 [facility] 2019-06-02 2019-06-02 Hospital Luís [facility] 1.2.840.114 [id number] Univers 18:40:00 18:44:00 Encounter [facility] 350.1.13.10 ity of Surgical 4.2.7.2.686 Edward as Specialti [phone] Ri dical es 808 [facility] 2019-06-02 2019-06-02 Telephone Evelio [facility] 1.2.840.114 [id number] Univers 00:00:00 00:00:00 [facility] 350.1.13.10 ity of [place] 4.2.7.2.686 Edward as Professio [phone] Ri dicva nal [address] [place] [address] 2019-05-25 2019-05-25 Orders Doctor MARTHA 1.2.840.114 [id number] Univers 00:00:00 00:00:00 Only Unassigned, MELIZA 350.1.13.10 ity of [place] [facility] 4.2.7.2.686 Edward as [phone] [address] 2019-04-25 2019-04-25 Office [facility] 1.2.840.114 [id number] Univers 13:05:24 14:13:17 Visit [facility] 350.1.13.10 ity of [place] 4.2.7.2.686 Edward as Professio [phone] Ri dicva nal [address] [place] [address] 2019-04-25 2019-04-25 Orders Doctor MARTHA 1.2.840.114 [id number] Univers 00:00:00 00:00:00 Only Unassigned, MELIZA 350.1.13.10 ity of [place] [facility] 4.2.7.2.686 Edward as [phone] [place] [address] [address] 2019-04-16 2019-04-16 Orders Doctor MARTHA 1.2.840.114 [id number] Univers 00:00:00 00:00:00 Only Unassigned, MELIZA 350.1.13.10 ity of [place] [facility] 4.2.7.2.686 Edward as [phone] [place] [address] [address] Results Test Description Test Time Test Comments Results Result Comments Source CBC W/AUTO DIFF 2023-04-24 00:00:00 Test Item Value Reference Range Interpretation Comme nts NUCLEATED RBCS (test code 0.0 /100 WBC'S See_Comment [Automated message] The = 36901-6) system which Cyber[employer] nerated this result transmit cesar reference range: 0.0 /100 WBC'S. The reference range was not used to interpret th is result as normal/abnormal . ABSOLUTE EOSINOPHILS (test 0.19 K/UL See_Comment [Automated message] The code = 43917-8) system which generated this result transmit cesar reference range: 0.00-0.5 0 K/UL. The reference range was not used to interpret th is result as normal/abnormal . ABSOLUTE LYMPHOCYTES (test 1.94 K/UL See_Comment [Automated message] The code = 50536-9) system which generated this result transmit cesar reference range: 1.00-4.0 0 K/UL. The reference range was not used to interpret th is result as normal/abnormal . ABSOLUTE MONOCYTES (test 0.42 K/UL See_Comment [A utomated message] The code = 57864-5) system which generated this result transmit cesar reference range: 0.20-1.0 0 K/UL. The reference range was not used to interpret th is result as normal/abnormal . ABSOLUTE NEUTROPHILS (test 4.39 K/UL See_Comment [Automated message] The code = 20222-5) system which generated this result transmit cesar reference range: 1.50-7.5 0 K/UL. The reference range was not used to interpret th is result as normal/abnormal . BASOPHILS (test code = 0.6 % 86628-2) EOSINOPHILS (test code = 2.7 % 64629-9) HEMATOCRIT (test code = 41.6 % See_Comment [Au tomated message] The 75646-0) system which ge nerated this result transmit cesar reference range: 34.0-45. 0 %. The reference range was not used to interpret th is result as normal/abnormal . HEMOGLOBIN (test code = 13.9 G/DL See_Comment [Au tomated message] The 718-7) system which ge nerated this result transmit cesar reference range: 11.5-15. 5 G/DL. The reference range was not used to interpret th is result as normal/abnormal . LYMPHOCYTES (test code = 27.7 % 54957-5) MCH (test code = 02831-5) 27.3 PG See_Comment [ Automated message] The system which ge nerated this result transmit cesar reference range: 25.0-33. 0 PG. The reference range was not used to interpret th is result as normal/abnormal . MCHC (test code = 77740-9) 33.4 G/DL See_Comment [Automated message] The system which ge nerated this result transmit cesar reference range: 31.0-36. 0 G/DL. The reference range was not used to interpret th is result as normal/abnormal . MCV (test code = 14288-7) 81.7 fL See_Comment [ Automated message] The system which ge nerated this result transmit cesar reference range: 80.0-99. 0 fL. The reference range was not used to interpret th is result as normal/abnormal . MONOCYTES (test code = 6.0 % 07532-7) NEUTROPHILS (test code = 62.6 % 96302-7) PLATELET COUNT (test code 294 K/UL See_Comment [ Automated message] The = 42973-6) system which Cyber[employer] nerated this result transmit cesar reference range: 130-400 K/UL. The reference range was not used to interpret th is result as normal/abnormal . RBC (test code = 31095-6) 5.09 M/UL See_Comment [ Automated message] The system which Cyber[employer] nerated this result transmit cesar reference range: 3.80-5.4 0 M/UL. The reference range was not used to interpret th is result as normal/abnormal . RDW (test code = 81661-8) 14.2 % See_Comment [ Automated message] The system which Cyber[employer] nerated this result transmit cesar reference range: 11.5-15. 0 %. The reference range was not used to interpret th is result as normal/abnormal . WBC (test code = 54634-5) 7.0 K/UL See_Comment [ Automated message] The system which ge nerated this result transmit cesar reference range: 3.5-11.0 K/UL. The reference range was not used to interpret th is result as normal/abnormal . HEMOGLOBIN [id number] 00:00:00 Test Item Value Reference Range Interpretation Comments HEMOGLOBIN A1c (test 8.1 % See_Comment H [Autom ated message] The code = 4548-4) system which generated this result tra nsmitted reference range : 4.2-5.6 %. The referenc e range was not used to interpret this result as normal/abnormal . FREE T4 (THYROXINE)2023-04-24 00:00:00 Test Item Value Reference Range Interpretation Comments FREE T4 1.07 NG/DL See_Comment [Automated mes kae] The (THYROXINE) (test system [facility] generated code = 3024-7) this result t ransmitted reference range : 0.80-1.90 NG/DL . The reference range was not used to interpr et this result as normal/abnormal . TSH REFLEX TO FREE [id number] 00:00:00 Test Item Value Reference Range Interpretation Comments TSH REFLEX TO FREE 4.810 UIU/ML See_Comment H [Automat ed message] T4 (test code = The system [facility] 64419-4) generated this result transmitted ref erence range: 0.400-4. 100 UIU/ML. The ref erence range was not u sed to interpret this result as normal/abnor mal. LIPID PANEL WITH REFLEX DIRECT [id number] 00:00:00 Test Item Value Reference Range Interpretation Comments CALC LDL CHOL (test 164 MG/DL See_Comment H [Automa cesar message] code = 67169-1) The system [facility] generated this result transmit cesar reference range : <100 MG/DL. The reference range was not used to interpret this result as normal/abnormal . CHOLESTEROL (test code 245 MG/DL See_Comment H [Aut omated message] = 2093-3) The system [facility] generated this result transmit cesar reference range : <200 MG/DL. The reference range was not used to interpret this result as normal/abnormal . HDL CHOLESTEROL (test 42 MG/DL See_Comment [Auto mated message] code = 2085-9) The system [facility] generated this result transmit cesar reference range : >39 MG/DL. The refe rence range was not u sed to interpret th is result as normal/abnormal . RISK RATIO LDL/HDL 3.90 RATIO See_Comment H [Automat ed message] (test code = 96423-0) The sy stem which generated this result transmit cesar reference range : <3.22 RATIO. Th e reference range was not used to interpret this result as normal/abnormal . TRIGLYCERIDES (test 230 MG/DL See_Comment H [Automa cesar message] code = 2571-8) The system [facility] generated this result transmit cesar reference range : <150 MG/DL. The reference range was not used to interpret this result as normal/abnormal . ALBUMIN/CREATININE RATIO, RANDOM [id number] 00:00:00 Test Item Value Reference Range Interpretation Comments ALBUMIN, URINE, TEST NOT PERFORMED NOT ESTAB MG/DL RANDOM (test MG/DL code = 28821-4) CALC TEST NOT PERFORMED See_Comment [Automat ed message] ALBUMIN/CREAT, MG/G The system [facility] RND (test code = generated t his 56461-5) result transmit cesar reference range : <30 MG/G. The refer ence range was not u sed to interpret th is result as normal/abnormal . CREATININE, TEST NOT PERFORMED NOT ESTAB MG/DL URINE, CONC. MG/DL (test code = 2161-8) COMPREHENSIVE METABOLIC [id number] 00:00:00 Test Item Value Reference Range Interpretation Comments ALBUMIN (test code = 4.4 G/DL See_Comment [Autom ated message] 1751-7) The system [facility] generated this result transmit cesar reference range : 3.5-5.2 G/DL. T he reference range was not used to interpret this result as normal/abnormal . ALKALINE PHOSPHATASE 73 U/L See_Comment [Autom ated message] (test code = 6768-6) The sys tem which generated this result transmit cesar reference range : 40-142 U/L. The reference range was not used to interpret this result as normal/abnormal . BILIRUBIN, TOTAL 0.2 MG/DL See_Comment [Automated message] (test code = 1975-2) The sys tem which generated this result transmit cesar reference range : <=1.2 MG/DL. Th e reference range was not used to interpret this result as normal/abnormal . BUN (test code = 18 MG/DL See_Comment [Automated message] 3094-0) The system [facility] generated this result transmit cesar reference range : 8-23 MG/DL. The reference range was not used to interpret this result as normal/abnormal . CALCIUM (test code = 9.9 MG/DL See_Comment [Autom ated message] 92968-5) The system [facility] generated this result transmit cesar reference range : 8.5-10.5 MG/DL. The reference range was not used to interpret this result as normal/abnormal . CALC A/G RATIO (test 1.8 RATIO See_Comment [Autom ated message] code = 1759-0) The system [facility] generated this result transmit cesar reference range : 1.0-2.6 RATIO. The reference range was not used to interpret this result as normal/abnormal . CALC BUN/CREAT (test 17 RATIO See_Comment [Autom ated message] code = 3987-3) The system [facility] generated this result transmit cesar reference range : 6-28 RATIO. The reference range was not used to interpret this result as normal/abnormal . CALC GLOBULIN (test 2.4 G/DL See_Comment [Automa cesar message] code = 28281-2) The system [facility] generated this result transmit cesar reference range : 1.9-3.7 G/DL. T he reference range was not used to interpret this result as normal/abnormal . CARBON DIOXIDE (test 28 MEQ/L See_Comment [Autom ated message] code = 1963-8) The system [facility] generated this result transmit cesar reference range : 19-31 MEQ/L. Th e reference range was not used to interpret this result as normal/abnormal . CHLORIDE (test code 100 MEQ/L See_Comment [Automa cesar message] = 7335-0) The system [facility] generated this result transmit cesar reference range : 95-107 MEQ/L. T he reference range was not used to interpret this result as normal/abnormal . CREATININE (test 1.08 MG/DL See_Comment [Automated message] code = 2160-0) The system [facility] generated this result transmit cesar reference range : 0.60-1.30 MG/DL . The reference range was not used to interpret this result as normal/abnormal . eGFR (2020 CKD-EPI) 51 ML/MIN/1.73 See_Comment L [Auto mated message] (test code = The system [facility] 69967-2) generated this result transmit cesar reference range : >60 ML/MIN/1.73. Th e reference range was not used to interpret this result as normal/abnormal . GLUCOSE (test code = 177 MG/DL See_Comment H [Autom ated message] 1558-6) The system [facility] generated this result transmit cesar reference range : 70-99 MG/DL. Th e reference range was not used to interpret this result as normal/abnormal . POTASSIUM (test code 4.9 MEQ/L See_Comment [Autom ated message] = 2823-3) The system [facility] generated this result transmit cesar reference range : 3.5-5.4 MEQ/L. The reference range was not used to interpret this result as normal/abnormal . PROTEIN, TOTAL (test 6.8 G/DL See_Comment [Autom ated message] code = 2885-2) The system [facility] generated this result transmit cesar reference range : 6.1-8.3 G/DL. T he reference range was not used to interpret this result as normal/abnormal . AST (test code = 18 U/L See_Comment [Automated message] 1920-8) The system [facility] generated this result transmit cesar reference range : 9-40 U/L. The reference range was not used to interpret this result as normal/abnormal . ALT (test code = 29 U/L See_Comment [Automated message] 1742-6) The system [facility] generated this result transmit cesar reference range : 5-40 U/L. The reference range was not used to interpret this result as normal/abnormal . SODIUM (test code = 138 MEQ/L See_Comment [Automa cesar message] 2951-2) The system [facility] generated this result transmit cesar reference range : 133-146 MEQ/L. The reference range was not used to interpret this result as normal/abnormal . CBC W/AUTO [id number] 00:00:00 Test Item Value Reference Range Interpretation Comments NUCLEATED RBCS (test 0.0 /100 WBC'S See_Comment [Aut omated message] code = 45030-1) The system [facility] generated this result transmit cesar reference range : 0.0 /100 WBC'S. The reference range was not used to interpret this result as normal/abnormal . ABSOLUTE EOSINOPHILS 0.20 K/UL See_Comment [Autom ated message] (test code = The system [facility] 26151-1) generated this result transmit cesar reference range : 0.00-0.50 K/UL. The reference range was not used to interpret this result as normal/abnormal . ABSOLUTE LYMPHOCYTES 1.94 K/UL See_Comment [Autom ated message] (test code = The system [facility] 14547-1) generated this result transmit ecsar reference range : 1.00-4.00 K/UL. The reference range was not used to interpret this result as normal/abnormal . ABSOLUTE MONOCYTES 0.41 K/UL See_Comment [Automat ed message] (test code = The system [facility] 08192-7) generated this result transmit cesar reference range : 0.20-1.00 K/UL. The reference range was not used to interpret this result as normal/abnormal . ABSOLUTE NEUTROPHILS 4.14 K/UL See_Comment [Autom ated message] (test code = The system [facility] 76146-7) generated this result transmit cesar reference range : 1.50-7.50 K/UL. The reference range was not used to interpret this result as normal/abnormal . BASOPHILS (test code 0.7 % = 32574-0) EOSINOPHILS (test 2.9 % code = 22025-7) HEMATOCRIT (test 43.3 % See_Comment [Automated message] code = 83600-5) The system [facility] generated this result transmit cesar reference range : 34.0-45.0 %. Th e reference range was not used to interpret this result as normal/abnormal . HEMOGLOBIN (test 13.7 G/DL See_Comment [Automated message] code = 718-7) The system [facility] generated this result transmit cesar reference range : 11.5-15.5 G/DL. The reference range was not used to interpret this result as normal/abnormal . LYMPHOCYTES (test 28.5 % code = 93532-8) MCH (test code = 25.0 PG See_Comment [Automated message] 37390-7) The system [facility] generated this result transmit cesar reference range : 25.0-33.0 PG. T he reference range was not used to interpret this result as normal/abnormal . MCHC (test code = 31.6 G/DL See_Comment [Automate d message] 92616-3) The system [employer] generated this result transmit cesar reference range : 31.0-36.0 G/DL. The reference range was not used to interpret this result as normal/abnormal . MCV (test code = 79.2 fL See_Comment L [Automated message] 71706-9) The system [employer] generated this result transmit cesar reference range : 80.0-99.0 fL. T he reference range was not used to interpret this result as normal/abnormal . MONOCYTES (test code 6.0 % = 07504-3) NEUTROPHILS (test 61.0 % code = 57422-5) PLATELET COUNT (test 352 K/UL See_Comment [Autom ated message] code = 23525-3) The system [facility] generated this result transmit cesar reference range : 130-400 K/UL. T he reference range was not used to interpret this result as normal/abnormal . RBC (test code = 5.47 M/UL See_Comment H [Automated message] 65073-8) The system [employer] generated this result transmit cesar reference range : 3.80-5.40 M/UL. The reference range was not used to interpret this result as normal/abnormal . RDW (test code = 18.2 % See_Comment H [Automated message] 40809-9) The system [employer] generated this result transmit cesar reference range : 11.5-15.0 %. Th e reference range was not used to interpret this result as normal/abnormal . WBC (test code = 6.8 K/UL See_Comment [Automated message] 05440-5) The system [employer] generated this result transmit cesar reference range : 3.5-11.0 K/UL. The reference range was not used to interpret this result as normal/abnormal . HEMOGLOBIN [id number] 00:00:00 Test Item Value Reference Range Interpretation Comments HEMOGLOBIN A1c (test 7.0 % See_Comment H [Autom ated message] The code = 4548-4) system which generated this result tra nsmitted reference range : 4.2-5.6 %. The referenc e range was not used to interpret this result as normal/abnormal . TSH REFLEX TO FREE [id number] 00:00:00 Test Item Value Reference Range Interpretation Comments TSH REFLEX TO FREE 3.230 UIU/ML See_Comment [Automat ed message] T4 (test code = The system [facility] 75825-1) generated this result transmitted ref erence range: 0.400-4. 100 UIU/ML. The ref erence range was not u sed to interpret this result as normal/abnor mal. LIPID PANEL WITH REFLEX DIRECT [id number] 00:00:00 Test Item Value Reference Range Interpretation Comments CALC LDL CHOL (test 177 MG/DL See_Comment H [Automa cesar message] code = 45568-5) The system [facility] generated this result transmit cesar reference range : <100 MG/DL. The reference range was not used to interpret this result as normal/abnormal . CHOLESTEROL (test code 263 MG/DL See_Comment H [Aut omated message] = 2093-3) The system [facility] generated this result transmit cesar reference range : <200 MG/DL. The reference range was not used to interpret this result as normal/abnormal . HDL CHOLESTEROL (test 48 MG/DL See_Comment [Auto mated message] code = 2085-9) The system [facility] generated this result transmit cesar reference range : >39 MG/DL. The refe rence range was not u sed to interpret th is result as normal/abnormal . RISK RATIO LDL/HDL 3.69 RATIO See_Comment H [Automat ed message] (test code = 23499-1) The sy stem which generated this result transmit cesar reference range : <3.22 RATIO. Th e reference range was not used to interpret this result as normal/abnormal . TRIGLYCERIDES (test 226 MG/DL See_Comment H [Automa cesar message] code = 2571-8) The system [employer] generated this result transmit cesar reference range : <150 MG/DL. The reference range was not used to interpret this result as normal/abnormal . ALBUMIN/CREATININE RATIO, RANDOM [id number] 00:00:00 Test Item Value Reference Range Interpretation Comments ALBUMIN, URINE, 11.8 MG/DL NOT ESTAB MG/DL RANDOM (test code = 20836-4) CALC ALBUMIN/CREAT, 46 MG/G See_Comment H [Automa cesar message] RND (test code = The system which 28195-4) generated this result transmitted ref erence range: <30 MG/G . The reference range was not used to interpr et this result as normal/abnormal . CREATININE, URINE, 255.3 MG/DL NOT ESTAB MG/DL CONC. (test code = 2161-8) COMPREHENSIVE METABOLIC [id number] 00:00:00 Test Item Value Reference Range Interpretation Comments ALBUMIN (test code = 4.3 G/DL See_Comment [Autom ated message] 1610-7) The system [employer] generated this result transmit cesar reference range : 3.5-5.2 G/DL. T he reference range was not used to interpret this result as normal/abnormal . ALKALINE PHOSPHATASE 82 U/L See_Comment [Autom ated message] (test code = 6768-6) The [employer] tem which generated this result transmit cesar reference range : 40-142 U/L. The reference range was not used to interpret this result as normal/abnormal . BILIRUBIN, TOTAL 0.3 MG/DL See_Comment [Automated message] (test code = 1975-2) The sys tem which generated this result transmit cesar reference range : <=1.2 MG/DL. Th e reference range was not used to interpret this result as normal/abnormal . BUN (test code = 14 MG/DL See_Comment [Automated message] 5294-0) The system [employer] generated this result transmit cesar reference range : 8-23 MG/DL. The reference range was not used to interpret this result as normal/abnormal . CALCIUM (test code = 9.8 MG/DL See_Comment [Autom ated message] 91685-0) The system [employer] generated this result transmit cesar reference range : 8.5-10.5 MG/DL. The reference range was not used to interpret this result as normal/abnormal . CALC A/G RATIO (test 1.7 RATIO See_Comment [Autom ated message] code = 1759-0) The system [employer] generated this result transmit cesar reference range : 1.0-2.6 RATIO. The reference range was not used to interpret this result as normal/abnormal . CALC BUN/CREAT (test 11 RATIO See_Comment [Autom ated message] code = 3097-3) The system [employer] generated this result transmit cesar reference range : 6-28 RATIO. The reference range was not used to interpret this result as normal/abnormal . CALC GLOBULIN (test 2.5 G/DL See_Comment [Automa cesar message] code = 65385-3) The system [facility] generated this result transmit cesar reference range : 1.9-3.7 G/DL. T he reference range was not used to interpret this result as normal/abnormal . CARBON DIOXIDE (test 25 MEQ/L See_Comment [Autom ated message] code = 1963-8) The system [facility] generated this result transmit cesar reference range : 19-31 MEQ/L. Th e reference range was not used to interpret this result as normal/abnormal . CHLORIDE (test code 101 MEQ/L See_Comment [Automa cesar message] = 2075-0) The system [facility] generated this result transmit cesar reference range : 95-107 MEQ/L. T he reference range was not used to interpret this result as normal/abnormal . CREATININE (test 1.29 MG/DL See_Comment [Automated message] code = 2160-0) The system [facility] generated this result transmit cesar reference range : 0.60-1.30 MG/DL . The reference range was not used to interpret this result as normal/abnormal . eGFR (2020 CKD-EPI) 41 ML/MIN/1.73 See_Comment L [Auto mated message] (test code = The system [facility] [employer] 69866-1) generated this result transmit cesar reference range : >60 ML/MIN/1.73. Th e reference range was not used to interpret this result as normal/abnormal . GLUCOSE (test code = 230 MG/DL See_Comment H [Autom ated message] 1558-6) The system [facility] generated this result transmit cesar reference range : 70-99 MG/DL. Th e reference range was not used to interpret this result as normal/abnormal . POTASSIUM (test code 4.8 MEQ/L See_Comment [Autom ated message] = 2823-3) The system [facility] generated this result transmit cesar reference range : 3.5-5.4 MEQ/L. The reference range was not used to interpret this result as normal/abnormal . PROTEIN, TOTAL (test 6.8 G/DL See_Comment [Autom ated message] code = 2885-2) The system [facility] generated this result transmit cesar reference range : 6.1-8.3 G/DL. T he reference range was not used to interpret this result as normal/abnormal . AST (test code = 17 U/L See_Comment [Automated message] 1920-8) The system [employer] generated this result transmit cesar reference range : 9-40 U/L. The reference range was not used to interpret this result as normal/abnormal . ALT (test code = 22 U/L See_Comment [Automated message] 1742-6) The system [employer] generated this result transmit cesar reference range : 5-40 U/L. The reference range was not used to interpret this result as normal/abnormal . SODIUM (test code = 141 MEQ/L See_Comment [Automa cesar message] 2951-2) The system [employer] generated this result transmit cesar reference range : 133-146 MEQ/L. The reference range was not used to interpret this result as normal/abnormal . Pulmonary function tests, hfbgojqa4840-63-05 20:05:39 Test Item Value Reference Range Interpretation [...] [Auto mated message] = 5514) The system [employer] generated this result transmitted ref erence range: [...] See_Comment [Autom ated message] 5507) The system [employer] generated this result transmitted ref erence range: 3.06 - 3 .06 cmH2O*s/L. The reference range was not used to int erpret this result as normal/abnormal . Raw Predicted (test code = 5505) Raw LLN (test code = 5506) Raw % Pre of 338.4 % Predicted (test code = 5508) sGaw Predicted (test See_Comment [Autom ated message] code = 5528) The system [employer] generated this result transmitted ref erence range: [...] 58.9 % Predicted (test code = 5587) [facility] dxokevck9975-45-53 20:05:39 Test Item Value Reference Range Interpretation [...] [Auto mated message] = 5514) The system [employer] generated this result transmitted ref erence range: [...] See_Comment [Autom ated message] 5507) The system [employer] generated this result transmitted ref erence range: 3.06 - 3 .06 cmH2O*s/L. The reference range was not used to int erpret this result as normal/abnormal . Raw Predicted (test code = 5505) Raw LLN (test code = 5506) Raw % Pre of 338.4 % Predicted (test code = 5508) sGaw Predicted (test See_Comment [Autom ated message] code = 5528) The system [employer] generated this result transmitted ref erence range: [...] 5355) FEV1/FVC % Pre (test 70.06 % 63.80-83.39 code = 5361) FEV1/FVC % Predicted (test [...] PEF Pre (test code = 3.56 L/s 2.50-5.41 5367) PEF Predicted (test code = 5310) PEF LLN (test code = 5366) PEF % Pre of 90.1 % Predicted (test code = 5368) MVV Pre (test code = 30.5 L/min 44.01-59.55 5590) MVV Predicted (test code = 5544) MVV LLN (test code = 5543) MVV % Pre of 58.9 % Predicted (test code = 5587) [facility]afaRXLGKSUVCB0255-08-57 19:42:00 Test Item Value Reference Range Interpretation Comments Coronavirus (COVID-19) Not Detected MAURA (test code = *NA*(11/01/21 1:42 PM) Coronavirus (COVID-19) MAURA) [facility]5338[facility] 19:42:00 Test Item Value Reference Range Interpretation Comments Coronavirus (COVID-19) Not Detected MAURA (test code = *NA*(11/01/21 1:42 PM) Coronavirus (COVID-19) MAURA) [facility] CenterQvvdwgxYOJRWDWVUP1285-20-00 19:42:00 Test Item Value Reference Range Interpretation Comments Coronavirus (COVID-19) Not Detected MAURA (test code = *NA*(11/01/21 1:42 PM) Coronavirus (COVID-19) MAURA) [facility] CenterCdjqxgdRKNWCZKBGP4586-41-63 19:42:00 Test Item Value Reference Range Interpretation Comments Coronavirus (COVID-19) Not Detected MAURA (test code = *NA*(11/01/21 1:42 PM) Coronavirus (COVID-19) MAURA) [facility] CenterAvuicvsTAVARZSIJZ7218-91-90 19:42:00 Test Item Value Reference Range Interpretation Comments Coronavirus (COVID-19) Not Detected MAURA (test code = *NA*(11/01/21 1:42 PM) Coronavirus (COVID-19) MAURA) [facility] CenterRiisygwGMBZXECGDD4571-02-48 19:42:00 Test Item Value Reference Range Interpretation Comments Coronavirus (COVID-19) Not Detected MAURA (test code = *NA*(11/01/21 1:42 PM) Coronavirus (COVID-19) MAURA) [facility] CenterWdalhskYDPOCDEHPY1537-02-61 19:42:00 Test Item Value Reference Range Interpretation Comments Coronavirus (COVID-19) Not Detected MAURA (test code = *NA*(11/01/21 1:42 PM) Coronavirus (COVID-19) MAURA) [facility] CenterGapxmavBWLMRURCMP9909-66-67 19:42:00 Test Item Value Reference Range Interpretation Comments Coronavirus (COVID-19) Not Detected MAURA (test code = *NA*(11/01/21 1:42 PM) Coronavirus (COVID-19) MAURA) [facility] [id number] 00:00:00 Test Item Value Reference Range Interpretation Comments Cholesterol, Total (test code = 2093-3) 282 100-199 Triglycerides (test code = 2571-8) 190 0-149 HDL Cholesterol (test code = 2085-9) 55 >39 Thyroid Panel With [id number] 00:00:00 Test Item Value Reference Range Interpretation Comments TSH (test code = 45303-8) 6.260 0.450-4.500 Thyroxine (T4) (test code = 3026-2) 5.4 4.5-12.0 T3 Uptake (test code = 3050-2) 28 24-39 Free Thyroxine Index (test code = 1.5 1.2-4.9 23115-2) Microalbumin/Creat Ratio, Random [id number] 00:00:00 Test Item Value Reference Range Interpretation Comments Creatinine, Urine (test code = 2161-8) 99.9 Not Estab. Albumin, Urine (test code = 40824-3) 487.3 Not Estab. Alb/Creat Ratio (test code = 91161-3) 488 0-29 Hemoglobin [id number] 00:00:00 Test Item Value Reference Range Interpretation Comments Hemoglobin A1c (test code = 4548-4) 6.7 4.8-5.6 Comp. Metabolic Panel (14) (CMP)2021-08-09 00:00:00 Test Item Value Reference Range Interpretation Comments Glucose (test code = 2345-7) 159 65-99 BUN (test code = 3094-0) 28 8-27 Creatinine (test code = 2160-0) 1.30 0.57-1.00 eGFR If NonAfricn Am (test code = 39 >59 00419-1) eGFR If Africn Am (test code = 06079-7) 45 >59 BUN/Creatinine Ratio (test code = 09-13 3097-3) Sodium (test code = 2951-2) 138 134-144 Potassium (test code = 2823-3) 4.7 3.5-5.2 Chloride (test code = 2075-0) 98 96-106 Carbon Dioxide, Total (test code = 2028-05) Calcium (test code = 62642-8) 9.8 8.7-10.3 Protein, Total (test code = 2885-2) 6.6 6.0-8.5 Albumin (test code = 1751-7) 4.1 3.7-4.7 Globulin, Total (test code = 01133-5) 2.5 1.5-4.5 A/G Ratio (test code = 1759-0) 1.6 1.2-2.2 Bilirubin, Total (test code = 1974-2) 0.3 0.0-1.2 Alkaline Phosphatase (test code = 74 44-121 6768-6) AST (SGOT) (test code = 1920-8) 15 0-40 ALT (SGPT) (test code = 1742-6) 16 0-32 CBC With Differential/Loyneskf5396-61-78 00:00:00 Test Item Value Reference Range Interpretation [...] Granulocytes (test code = 0 Not Estab. 88217-5) Immature Grans (Abs) (test code = 0.0 0.0-0.1 22563-3) NRBC (test code = 01682-1) Hematology Comments: (test code = 82034-9) BLOOD BANK [id number] 15:34:00 Test Item Value Reference Range Interpretation Comments ABO/Rh (test code = ABO/Rh) [facility] [id number] 15:34:00 Test Item Value Reference Range Interpretation Comments Antibody Scrn (test Negative (02/18/21 10:34 code = Antibody Scrn) AM) [facility] [employer] [id number] 15:34:00 Test Item Value Reference Range Interpretation Comments Glucose Lvl (test code = Glucose Lvl) 111 70-99 [facility] [employer] [id number] 15:34:00 Test Item Value Reference Range Interpretation Comments BUN (test code = BUN) 06 04- [facility] [employer] [id number] 15:34:00 Test Item Value Reference Range Interpretation Comments Creatinine Lvl (test code = Creatinine 1.32 0.50-1.40 Lvl) [facility] [employer] [id number] 15:34:00 Test Item Value Reference Range Interpretation Comments Sodium Lvl (test code = Sodium Lvl) 139 135-145 [facility] [employer] [id number] 15:34:00 Test Item Value Reference Range Interpretation Comments Potassium Lvl (test code = Potassium 4.4 3.5-5.1 Lvl) [facility] [employer] [id number] 15:34:00 Test Item Value Reference Range Interpretation Comments Chloride Lvl (test code = Chloride Lvl) 107 95-109 [facility] [employer] [id number] 15:34:00 Test Item Value Reference Range Interpretation Comments CO2 (test code = CO2) 27 24-32 [facility] [employer] [id number] 15:34:00 Test Item Value Reference Range Interpretation Comments Calcium Lvl (test code = Calcium Lvl) 9.1 8.5-10.5 [facility] [employer] [id number] 15:34:00 Test Item Value Reference Range Interpretation Comments Total Protein (test code = Total 7.7 6.4-8.4 Protein) [facility] SoftwareMAURICE [place] [id number] 15:34:00 Test Item Value Reference Range Interpretation Comments Albumin Lvl (test code = Albumin Lvl) 4.0 3.5-5.0 [place] 687901-06-04 15:34:00 Test Item Value Reference Range Interpretation Comments ALT (test code = ALT) 24 See_Comment [Auto mated message] The system which ge nerated this result transmit cesar reference range : <=65. The reference range was not used to interpr et this result as aman l/abnormal. [place] 687901-06-04 15:34:00 Test Item Value Reference Range Interpretation Comments AST (test code = AST) 19 See_Comment [Auto mated message] The system which ge nerated this result transmit cesar reference range : <=37. The reference range was not used to interpr et this result as aman l/abnormal. [place] 687901-06-04 15:34:00 Test Item Value Reference Range Interpretation Comments Alk Phos (test code = Alk Phos) 64 39-136 [facility] [id number] 15:34:00 Test Item Value Reference Range Interpretation Comments Bili Total (test code = Bili Total) 0.4 0.2-1.3 [place] 687901-06-04 15:34:00 Test Item Value Reference Range Interpretation Comments AGAP (test code = AGAP) 9.4 10.0-20.0 [facility] [id number] 15:34:00 Test Item Value Reference Range Interpretation Comments B/C Ratio (test code = B/C Ratio) 16 1 6-25 [facility]InMage Systems [id number] 15:34:00 Test Item Value Reference Range Interpretation Comments Globulin (test code = Globulin) 3.7 2.7-4.2 [facility] [id number] 15:34:00 Test Item Value Reference Range Interpretation Comments A/G Ratio (test code = A/G Ratio) 1.1 1 0.7-1.6 [place] 687901-06-04 15:34:00 Test Item Value Reference Range Interpretation Comments eGFR (test code = eGFR) 38 [facility] HospitalXfdqgiuGXITSDEIOW5714-97-50 15:34:00 Test Item Value Reference Range Interpretation Comments Segs (test code = Segs) 49.7 45.0-75.0 [place] [address]-06-04 15:34:00 Test Item Value Reference Range Interpretation Comments Lymphocytes (test code = Lymphocytes) 39.6 20.0-40.0 [place] [address]-06-04 15:34:00 Test Item Value Reference Range Interpretation Comments Monocytes (test code = Monocytes) 6.6 2.0-12.0 [place] [address]-06-04 15:34:00 Test Item Value Reference Range Interpretation Comments Eosinophils (test code = 3.6 See_Comment [A utomated message] The Eosinophils) system which ge nerated this result tra nsmitted reference range : <=4.0. The reference r dayana was not used to int erpret this result as normal/abnormal . [place] [address]-06-04 15:34:00 Test Item Value Reference Range Interpretation Comments Basophils (test code = 0.5 See_Comment [Aut omated message] The Basophils) system which ge nerated this result tra nsmitted reference range : <=1.0. The reference r dayana was not used to int erpret this result as normal/abnormal . [place] [address]-06-04 15:34:00 Test Item Value Reference Range Interpretation Comments Neutrophils # (test code = Neutrophils 3.5 1.5-8.1 #) [place] [address]-06-04 15:34:00 Test Item Value Reference Range Interpretation Comments Lymphocytes # (test code = Lymphocytes 2.8 1.0-5.5 #) [place] [address]-06-04 15:34:00 Test Item Value Reference Range Interpretation Comments Monocytes # (test code 0.5 See_Comment [Aut omated message] The = Monocytes #) system which generated this result tra nsmitted reference range : <=0.8. The reference r dayana was not used to int erpret this result as normal/abnormal . [place] [address]-06-04 15:34:00 Test Item Value Reference Range Interpretation Comments Eosinophils # (test code 0.3 See_Comment [A utomated message] The = Eosinophils #) system [facility] h generated this result tra nsmitted reference range : <=0.5. The reference r dayana was not used to int erpret this result as normal/abnormal . [facility] CenterRjlqfjkDGMKAZZINL0567-41-53 15:34:00 Test Item Value Reference Range Interpretation Comments WBC (test code = WBC) 7.0 3.7-10.4 [facility] CenterJdguvnmKHJAMICJBE3426-85-37 15:34:00 Test Item Value Reference Range Interpretation Comments RBC (test code = RBC) 4.83 4.20-5.40 [facility] CenterDxxyxvhTAZZSWXCDM8609-29-46 15:34:00 Test Item Value Reference Range Interpretation Comments Hgb (test code = Hgb) 12.7 12.0-16.0 [facility] CenterWhsyzquZATSZVTXYY4239-70-82 15:34:00 Test Item Value Reference Range Interpretation Comments Hct (test code = Hct) 38.3 36.0-48.0 [facility] CenterFyjjyzyDNYPQBKTCQ6628-16-46 15:34:00 Test Item Value Reference Range Interpretation Comments MCV (test code = MCV) 79.3 80.0-98.0 [facility] CenterBsepuwhKDCVSSXONB2141-00-58 15:34:00 Test Item Value Reference Range Interpretation Comments MCH (test code = MCH) 26.3 pg 27.0-31.0 [facility] CenterJjgyodzKNTMAPPVAX0790-30-27 15:34:00 Test Item Value Reference Range Interpretation Comments MCHC (test code = MCHC) 33.1 32.0-36.0 [facility] CenterYxmieozCAQQVFFGPC4012-87-10 15:34:00 Test Item Value Reference Range Interpretation Comments RDW (test code = RDW) 15.1 11.5-14.5 [facility] CenterCbpsywvSSXCAXQICC9266-65-57 15:34:00 Test Item Value Reference Range Interpretation Comments Platelet (test code = Platelet) 289 133-450 [facility] CenterBmvhmvqMVDJCHDUDV7080-74-25 15:34:00 Test Item Value Reference Range Interpretation Comments MPV (test code = MPV) 8.1 7.4-10.4 [facility] CenterHdktugcUKJBMQOBGJ9838-13-70 15:34:00 Test Item Value Reference Range Interpretation Comments PT (test code = PT) 13.1 s 12.0-14.7 [facility] CenterFgdtcxeRRXRTDGKFG5072-05-13 15:34:00 Test Item Value Reference Range Interpretation Comments INR (test code = INR) 1.00 1 0.85-1.17 [facility] CenterAbbxwoyDVYZWZCZPJ5051-86-36 15:34:00 Test Item Value Reference Range Interpretation Comments PTT (test code = PTT) 28.7 s 22.9-35.8 [facility]SeeuxwsOWNWWOQKHB6790-71-45 15:34:00 Test Item Value Reference Range Interpretation Comments Coronavirus (COVID-19) Not Detected (02/18/21 MAURA (test code = 10:34 AM) Coronavirus (COVID-19) MAURA) [facility] [id number] 15:34:00 Test Item Value Reference Range Interpretation Comments Hgb A1C (test code = Hgb A1C) 5.9 [facility]Blin[facility] [id number] 15:34:00 Test Item Value Reference Range Interpretation Comments ABO/Rh (test code = ABO/Rh) O POS [facility]HD[facility] [id number] 15:34:00 Test Item Value Reference Range Interpretation Comments Antibody Scrn (test Negative (02/18/21 10:34 code = Antibody Scrn) AM) [facility] [id number] 15:34:00 Test Item Value Reference Range Interpretation Comments Glucose Lvl (test code = Glucose Lvl) 111 70-99 [facility] LFYTP9414-20-20 15:34:00 Test Item Value Reference Range Interpretation Comments BUN (test code = BUN) 21 7-22 [facility] [id number] 15:34:00 Test Item Value Reference Range Interpretation Comments Creatinine Lvl (test code = Creatinine 1.32 0.50-1.40 Lvl) [facility] [id number] 15:34:00 Test Item Value Reference Range Interpretation Comments Sodium Lvl (test code = Sodium Lvl) 139 135-145 [facility] QEGLJ4048-79-95 15:34:00 Test Item Value Reference Range Interpretation Comments Potassium Lvl (test code = Potassium 4.4 3.5-5.1 Lvl) [facility] [id number] 15:34:00 Test Item Value Reference Range Interpretation Comments Chloride Lvl (test code = Chloride Lvl) 107 95-109 [facility] [id number] 15:34:00 Test Item Value Reference Range Interpretation Comments CO2 (test code = CO2) 27 24-32 [facility] [id number] 15:34:00 Test Item Value Reference Range Interpretation Comments Calcium Lvl (test code = Calcium Lvl) 9.1 8.5-10.5 [facility] [id number] 15:34:00 Test Item Value Reference Range Interpretation Comments Total Protein (test code = Total 7.7 6.4-8.4 Protein) [facility] [id number] 15:34:00 Test Item Value Reference Range Interpretation Comments Albumin Lvl (test code = Albumin Lvl) 4.0 3.5-5.0 [facility] [id number] 15:34:00 Test Item Value Reference Range Interpretation Comments ALT (test code = ALT) 24 See_Comment [Auto mated message] The system which ge nerated this result transmit cesar reference range : <=65. The reference range was not used to interpr et this result as aman l/abnormal. [facility] [id number] 15:34:00 Test Item Value Reference Range Interpretation Comments AST (test code = AST) 19 See_Comment [Auto mated message] The system which ge nerated this result transmit cesar reference range : <=37. The reference range was not used to interpr et this result as aman l/abnormal. [facility] [employer] [id number] 15:34:00 Test Item Value Reference Range Interpretation Comments Alk Phos (test code = Alk Phos) 64 39-136 [facility] [employer] [id number] 15:34:00 Test Item Value Reference Range Interpretation Comments Bili Total (test code = Bili Total) 0.4 0.2-1.3 [facility] [employer] [id number] 15:34:00 Test Item Value Reference Range Interpretation Comments AGAP (test code = AGAP) 9.4 10.0-20.0 [facility] [employer] [id number] 15:34:00 Test Item Value Reference Range Interpretation Comments B/C Ratio (test code = B/C Ratio) 16 1 6-25 [facility] FVSRY3959-13-24 15:34:00 Test Item Value Reference Range Interpretation Comments Globulin (test code = Globulin) 3.7 2.7-4.2 [facility] [employer] [id number] 15:34:00 Test Item Value Reference Range Interpretation Comments A/G Ratio (test code = A/G Ratio) 1.1 1 0.7-1.6 [facility]2021-06-04 15:34:00 Test Item Value Reference Range Interpretation Comments eGFR (test code = eGFR) 38 [facility] CenterNswigktDUBAZOOXXK0914-30-87 15:34:00 Test Item Value Reference Range Interpretation Comments Segs (test code = Segs) 49.7 45.0-75.0 [place] 828961-06-04 15:34:00 Test Item Value Reference Range Interpretation Comments Lymphocytes (test code = Lymphocytes) 39.6 20.0-40.0 [place] 828961-06-04 15:34:00 Test Item Value Reference Range Interpretation Comments Monocytes (test code = Monocytes) 6.6 2.0-12.0 [facility] CenterYnqwrucTNXSIDAJMG8395-58-55 15:34:00 Test Item Value Reference Range Interpretation Comments Eosinophils (test code = 3.6 See_Comment [A utomated message] The Eosinophils) system which ge nerated this result tra nsmitted reference range : <=4.0. The reference r dayana was not used to int erpret this result as normal/abnormal . [facility] CenterIgnjorcLFDEYNZJIS8378-86-68 15:34:00 Test Item Value Reference Range Interpretation Comments Basophils (test code = 0.5 See_Comment [Aut omated message] The Basophils) system which ge nerated this result tra nsmitted reference range : <=1.0. The reference r dayana was not used to int erpret this result as normal/abnormal . [place] 828961-06-04 15:34:00 Test Item Value Reference Range Interpretation Comments Neutrophils # (test code = Neutrophils 3.5 1.5-8.1 #) [place] 828961-06-04 15:34:00 Test Item Value Reference Range Interpretation Comments Lymphocytes # (test code = Lymphocytes 2.8 1.0-5.5 #) [place] 828961-06-04 15:34:00 Test Item Value Reference Range Interpretation Comments Monocytes # (test code 0.5 See_Comment [Aut omated message] The = Monocytes #) system which generated this result tra nsmitted reference range : <=0.8. The reference r dayana was not used to int erpret this result as normal/abnormal . [facility] CenterXblaxkfMSSPMRFYTM3101-69-83 15:34:00 Test Item Value Reference Range Interpretation Comments Eosinophils # (test code 0.3 See_Comment [A utomated message] The = Eosinophils #) system whic h generated this result tra nsmitted reference range : <=0.5. The reference r dayana was not used to int erpret this result as normal/abnormal . [facility] CenterYesbprgGWVNQCABDO1658-10-76 15:34:00 Test Item Value Reference Range Interpretation Comments WBC (test code = WBC) 7.0 3.7-10.4 [place] 828961-06-04 15:34:00 Test Item Value Reference Range Interpretation Comments RBC (test code = RBC) 4.83 4.20-5.40 [facility] CenterTksdagkTMMNGOCERK3625-99-95 15:34:00 Test Item Value Reference Range Interpretation Comments Hgb (test code = Hgb) 12.7 12.0-16.0 [place] 828961-06-04 15:34:00 Test Item Value Reference Range Interpretation Comments Hct (test code = Hct) 38.3 36.0-48.0 [facility] CenterOopkndbKDEIGCLDHG0862-48-37 15:34:00 Test Item Value Reference Range Interpretation Comments MCV (test code = MCV) 79.3 80.0-98.0 [facility] CenterFzkhlwqDAPTUDWEAT1554-32-03 15:34:00 Test Item Value Reference Range Interpretation Comments MCH (test code = MCH) 26.3 pg 27.0-31.0 [facility] CenterSxycmdtAVKOJRKUZS6856-63-65 15:34:00 Test Item Value Reference Range Interpretation Comments MCHC (test code = MCHC) 33.1 32.0-36.0 [facility] CenterQbnveeoZZDZQFBKUO6530-08-35 15:34:00 Test Item Value Reference Range Interpretation Comments RDW (test code = RDW) 15.1 11.5-14.5 [facility] CenterRacvtioQZNTKHVNFU0894-24-18 15:34:00 Test Item Value Reference Range Interpretation Comments Platelet (test code = Platelet) 289 133-450 [facility] CenterFshbtyqTPRKJXYKLW6288-85-45 15:34:00 Test Item Value Reference Range Interpretation Comments MPV (test code = MPV) 8.1 7.4-10.4 [place] 828961-06-04 15:34:00 Test Item Value Reference Range Interpretation Comments PT (test code = PT) 13.1 s 12.0-14.7 [facility]IOIGMPGG4795[facility] 15:34:00 Test Item Value Reference Range Interpretation Comments INR (test code = INR) 1.00 1 0.85-1.17 [facility]HqmesqaEKDGRAIBDN1361-54-91 15:34:00 Test Item Value Reference Range Interpretation Comments PTT (test code = PTT) 28.7 s 22.9-35.8 [facility] HospitalRxkyxbpWFKDNPWSRR4923-35-27 15:34:00 Test Item Value Reference Range Interpretation Comments Coronavirus (COVID-19) Not Detected (02/18/21 MAURA (test code = 10:34 AM) Coronavirus (COVID-19) MAURA) [facility] [id number] 15:34:00 Test Item Value Reference Range Interpretation Comments Hgb A1C (test code = Hgb A1C) 5.9 [facility] [id number] 15:34:00 Test Item Value Reference Range Interpretation Comments ABO/Rh (test code = ABO/Rh) O POS [facility] [id number] 15:34:00 Test Item Value Reference Range Interpretation Comments Antibody Scrn (test Negative (02/18/21 10:34 code = Antibody Scrn) AM) [facility] [employer] [id number] 15:34:00 Test Item Value Reference Range Interpretation Comments Glucose Lvl (test code = Glucose Lvl) 111 70-99 [facility] [employer]2021-06-04 15:34:00 Test Item Value Reference Range Interpretation Comments BUN (test code = BUN) 21 7-22 [facility] [employer]2021-06-04 15:34:00 Test Item Value Reference Range Interpretation Comments Creatinine Lvl (test code = Creatinine 1.32 0.50-1.40 Lvl) [employer]2021-06-04 15:34:00 Test Item Value Reference Range Interpretation Comments Sodium Lvl (test code = Sodium Lvl) 139 135-145 [facility] [employer]2021-06-04 15:34:00 Test Item Value Reference Range Interpretation Comments Potassium Lvl (test code = Potassium 4.4 3.5-5.1 Lvl) [facility] [employer]2021-06-04 15:34:00 Test Item Value Reference Range Interpretation Comments Chloride Lvl (test code = Chloride Lvl) 107 95-109 [facility] [id number] 15:34:00 Test Item Value Reference Range Interpretation Comments CO2 (test code = CO2) 27 24-32 [facility] [id number] 15:34:00 Test Item Value Reference Range Interpretation Comments Calcium Lvl (test code = Calcium Lvl) 9.1 8.5-10.5 [facility] [id number] 15:34:00 Test Item Value Reference Range Interpretation Comments Total Protein (test code = Total 7.7 6.4-8.4 Protein) [facility] [id number] 15:34:00 Test Item Value Reference Range Interpretation Comments Albumin Lvl (test code = Albumin Lvl) 4.0 3.5-5.0 [facility] [id number] 15:34:00 Test Item Value Reference Range Interpretation Comments ALT (test code = ALT) 24 See_Comment [Auto mated message] The system which ge nerated this result transmit cesar reference range : <=65. The reference range was not used to interpr et this result as aman l/abnormal. [facility] [employer] [id number] 15:34:00 Test Item Value Reference Range Interpretation Comments AST (test code = AST) 19 See_Comment [Auto mated message] The system which ge nerated this result transmit cesar reference range : <=37. The reference range was not used to interpr et this result as aman l/abnormal. [facility] [employer] [id number] 15:34:00 Test Item Value Reference Range Interpretation Comments Alk Phos (test code = Alk Phos) 64 39-136 [facility] [id number] 15:34:00 Test Item Value Reference Range Interpretation Comments Bili Total (test code = Bili Total) 0.4 0.2-1.3 [facility] [id number] 15:34:00 Test Item Value Reference Range Interpretation Comments AGAP (test code = AGAP) 9.4 10.0-20.0 [facility] [employer] [id number] 15:34:00 Test Item Value Reference Range Interpretation Comments B/C Ratio (test code = B/C Ratio) 16 1 6-25 [place] 687901-06-04 15:34:00 Test Item Value Reference Range Interpretation Comments Globulin (test code = Globulin) 3.7 2.7-4.2 [place] 687901-06-04 15:34:00 Test Item Value Reference Range Interpretation Comments A/G Ratio (test code = A/G Ratio) 1.1 1 0.7-1.6 [place] [address]-06-04 15:34:00 Test Item Value Reference Range Interpretation Comments eGFR (test code = eGFR) 38 [place] 828961-06-04 15:34:00 Test Item Value Reference Range Interpretation Comments Segs (test code = Segs) 49.7 45.0-75.0 [place] 828961-06-04 15:34:00 Test Item Value Reference Range Interpretation Comments Lymphocytes (test code = Lymphocytes) 39.6 20.0-40.0 [place] 828961-06-04 15:34:00 Test Item Value Reference Range Interpretation Comments Monocytes (test code = Monocytes) 6.6 2.0-12.0 [place] 828961-06-04 15:34:00 Test Item Value Reference Range Interpretation Comments Eosinophils (test code = 3.6 See_Comment [A utomated message] The Eosinophils) system which ge nerated this result tra nsmitted reference range : <=4.0. The reference r dayana was not used to int erpret this result as normal/abnormal . [place] 828961-06-04 15:34:00 Test Item Value Reference Range Interpretation Comments Basophils (test code = 0.5 See_Comment [Aut omated message] The Basophils) system which ge nerated this result tra nsmitted reference range : <=1.0. The reference r dayana was not used to int erpret this result as normal/abnormal . [place] 828961-06-04 15:34:00 Test Item Value Reference Range Interpretation Comments Neutrophils # (test code = Neutrophils 3.5 1.5-8.1 #) [place] 828961-06-04 15:34:00 Test Item Value Reference Range Interpretation Comments Lymphocytes # (test code = Lymphocytes 2.8 1.0-5.5 #) [place] [address]-06-04 15:34:00 Test Item Value Reference Range Interpretation Comments Monocytes # (test code 0.5 See_Comment [Aut omated message] The = Monocytes #) system which generated this result tra nsmitted reference range : <=0.8. The reference r dayana was not used to int erpret this result as normal/abnormal . [facility] CenterSuqsrzwVHYXPHOYKR0133-77-75 15:34:00 Test Item Value Reference Range Interpretation Comments Eosinophils # (test code 0.3 See_Comment [A utomated message] The = Eosinophils #) system whic h generated this result tra nsmitted reference range : <=0.5. The reference r dayana was not used to int erpret this result as normal/abnormal . [facility] CenterLnvclbxOOSWGNKJAB3426-19-70 15:34:00 Test Item Value Reference Range Interpretation Comments WBC (test code = WBC) 7.0 3.7-10.4 [place] 828961-06-04 15:34:00 Test Item Value Reference Range Interpretation Comments RBC (test code = RBC) 4.83 4.20-5.40 [place] 828961-06-04 15:34:00 Test Item Value Reference Range Interpretation Comments Hgb (test code = Hgb) 12.7 12.0-16.0 [place] 828961-06-04 15:34:00 Test Item Value Reference Range Interpretation Comments Hct (test code = Hct) 38.3 36.0-48.0 [place] 828961-06-04 15:34:00 Test Item Value Reference Range Interpretation Comments MCV (test code = MCV) 79.3 80.0-98.0 [place] 828961-06-04 15:34:00 Test Item Value Reference Range Interpretation Comments MCH (test code = MCH) 26.3 pg 27.0-31.0 [place] 828961-06-04 15:34:00 Test Item Value Reference Range Interpretation Comments MCHC (test code = MCHC) 33.1 32.0-36.0 [place] [address]-06-04 15:34:00 Test Item Value Reference Range Interpretation Comments RDW (test code = RDW) 15.1 11.5-14.5 [place] 828961-06-04 15:34:00 Test Item Value Reference Range Interpretation Comments Platelet (test code = Platelet) 289 133-450 [facility] CenterNfvqqxuARJEOQPTXG8670-89-36 15:34:00 Test Item Value Reference Range Interpretation Comments MPV (test code = MPV) 8.1 7.4-10.4 [facility] CenterOfezzkiHPOIUNZQVM0110-99-04 15:34:00 Test Item Value Reference Range Interpretation Comments PT (test code = PT) 13.1 s 12.0-14.7 [facility]ebbnuoXZLYYKBKIF1410-25-35 15:34:00 Test Item Value Reference Range Interpretation Comments INR (test code = INR) 1.00 1 0.85-1.17 [facility] CenterNcvbmxjRFATDAHZUD6125-25-52 15:34:00 Test Item Value Reference Range Interpretation Comments PTT (test code = PTT) 28.7 s 22.9-35.8 [facility] CenterZhuyvluVMBYKXWEVL9485-55-39 15:34:00 Test Item Value Reference Range Interpretation Comments Coronavirus (COVID-19) Not Detected (02/18/21 MAURA (test code = 10:34 AM) Coronavirus (COVID-19) MAURA) [facility] [id number] 15:34:00 Test Item Value Reference Range Interpretation Comments Hgb A1C (test code = Hgb A1C) 5.9 [facility] [id number] 15:34:00 Test Item Value Reference Range Interpretation Comments ABO/Rh (test code = ABO/Rh) O POS [facility] [id number] 15:34:00 Test Item Value Reference Range Interpretation Comments Antibody Scrn (test Negative (02/18/21 10:34 code = Antibody Scrn) AM) [facility] [employer] [id number] 15:34:00 Test Item Value Reference Range Interpretation Comments Glucose Lvl (test code = Glucose Lvl) 111 70-99 [facility] [employer] [id number] 15:34:00 Test Item Value Reference Range Interpretation Comments BUN (test code = BUN) 21 7-22 [facility] [employer] [id number] 15:34:00 Test Item Value Reference Range Interpretation Comments Creatinine Lvl (test code = Creatinine 1.32 0.50-1.40 Lvl) [facility] [employer] [id number] 15:34:00 Test Item Value Reference Range Interpretation Comments Sodium Lvl (test code = Sodium Lvl) 139 135-145 [place] 687901-06-04 15:34:00 Test Item Value Reference Range Interpretation Comments Potassium Lvl (test code = Potassium 4.4 3.5-5.1 Lvl) [place] 687901-06-04 15:34:00 Test Item Value Reference Range Interpretation Comments Chloride Lvl (test code = Chloride Lvl) 107 95-109 [place] 687901-06-04 15:34:00 Test Item Value Reference Range Interpretation Comments CO2 (test code = CO2) 27 24-32 [place] 687901-06-04 15:34:00 Test Item Value Reference Range Interpretation Comments Calcium Lvl (test code = Calcium Lvl) 9.1 8.5-10.5 [place] 687901-06-04 15:34:00 Test Item Value Reference Range Interpretation Comments Total Protein (test code = Total 7.7 6.4-8.4 Protein) [place] 687901-06-04 15:34:00 Test Item Value Reference Range Interpretation Comments Albumin Lvl (test code = Albumin Lvl) 4.0 3.5-5.0 [place] 687901-06-04 15:34:00 Test Item Value Reference Range Interpretation Comments ALT (test code = ALT) 24 See_Comment [Auto mated message] The system which ge nerated this result transmit cesar reference range : <=65. The reference range was not used to interpr et this result as aman l/abnormal. [place] 687901-06-04 15:34:00 Test Item Value Reference Range Interpretation Comments AST (test code = AST) 19 See_Comment [Auto mated message] The system which ge nerated this result transmit cesar reference range : <=37. The reference range was not used to interpr et this result as aman l/abnormal. [place] 687901-06-04 15:34:00 Test Item Value Reference Range Interpretation Comments Alk Phos (test code = Alk Phos) 64 39-136 [place] 687901-06-04 15:34:00 Test Item Value Reference Range Interpretation Comments Bili Total (test code = Bili Total) 0.4 0.2-1.3 [place] [address]-06-04 15:34:00 Test Item Value Reference Range Interpretation Comments AGAP (test code = AGAP) 9.4 10.0-20.0 [place] 687901-06-04 15:34:00 Test Item Value Reference Range Interpretation Comments B/C Ratio (test code = B/C Ratio) 16 1 6-25 [place] [address]-06-04 15:34:00 Test Item Value Reference Range Interpretation Comments Globulin (test code = Globulin) 3.7 2.7-4.2 [place] [address]-06-04 15:34:00 Test Item Value Reference Range Interpretation Comments A/G Ratio (test code = A/G Ratio) 1.1 1 0.7-1.6 [place] [address]-06-04 15:34:00 Test Item Value Reference Range Interpretation Comments eGFR (test code = eGFR) 38 [place] 828961-06-04 15:34:00 Test Item Value Reference Range Interpretation Comments Segs (test code = Segs) 49.7 45.0-75.0 [place] [address]-06-04 15:34:00 Test Item Value Reference Range Interpretation Comments Lymphocytes (test code = Lymphocytes) 39.6 20.0-40.0 [place] [address]-06-04 15:34:00 Test Item Value Reference Range Interpretation Comments Monocytes (test code = Monocytes) 6.6 2.0-12.0 [place] 828961-06-04 15:34:00 Test Item Value Reference Range Interpretation Comments Eosinophils (test code = 3.6 See_Comment [A utomated message] The Eosinophils) system which ge nerated this result tra nsmitted reference range : <=4.0. The reference r dayana was not used to int erpret this result as normal/abnormal . [place] [address]-06-04 15:34:00 Test Item Value Reference Range Interpretation Comments Basophils (test code = 0.5 See_Comment [Aut omated message] The Basophils) system which ge nerated this result tra nsmitted reference range : <=1.0. The reference r dayana was not used to int erpret this result as normal/abnormal . [place] [address]-06-04 15:34:00 Test Item Value Reference Range Interpretation Comments Neutrophils # (test code = Neutrophils 3.5 1.5-8.1 #) [facility] CenterJbrkzbuEGTYREVSYW6050-26-93 15:34:00 Test Item Value Reference Range Interpretation Comments Lymphocytes # (test code = Lymphocytes 2.8 1.0-5.5 #) [facility] CenterTwjvfvwWSOSOKIVUX6701-85-43 15:34:00 Test Item Value Reference Range Interpretation Comments Monocytes # (test code 0.5 See_Comment [Aut omated message] The = Monocytes #) system which generated this result tra nsmitted reference range : <=0.8. The reference r dayana was not used to int erpret this result as normal/abnormal . [place] 828961-06-04 15:34:00 Test Item Value Reference Range Interpretation Comments Eosinophils # (test code 0.3 See_Comment [A utomated message] The = Eosinophils #) system whic h generated this result tra nsmitted reference range : <=0.5. The reference r dayana was not used to int erpret this result as normal/abnormal . [facility] CenterIgqyejiBPKNIKKRHL8786-04-35 15:34:00 Test Item Value Reference Range Interpretation Comments WBC (test code = WBC) 7.0 3.7-10.4 [place] 828961-06-04 15:34:00 Test Item Value Reference Range Interpretation Comments RBC (test code = RBC) 4.83 4.20-5.40 [place] 828961-06-04 15:34:00 Test Item Value Reference Range Interpretation Comments Hgb (test code = Hgb) 12.7 12.0-16.0 [place] 828961-06-04 15:34:00 Test Item Value Reference Range Interpretation Comments Hct (test code = Hct) 38.3 36.0-48.0 [place] [address]-06-04 15:34:00 Test Item Value Reference Range Interpretation Comments MCV (test code = MCV) 79.3 80.0-98.0 [place] [address]-06-04 15:34:00 Test Item Value Reference Range Interpretation Comments MCH (test code = MCH) 26.3 pg 27.0-31.0 [place] 828961-06-04 15:34:00 Test Item Value Reference Range Interpretation Comments MCHC (test code = MCHC) 33.1 32.0-36.0 [facility] CenterDrtojkcQBLNBQXQUO0003-19-52 15:34:00 Test Item Value Reference Range Interpretation Comments RDW (test code = RDW) 15.1 11.5-14.5 [facility]VkeptnoBQXBLNMIWX3605-81-25 15:34:00 Test Item Value Reference Range Interpretation Comments Platelet (test code = Platelet) 289 133-450 [facility] HospitalZpqpxieLQATYOMLPQ7652-43-99 15:34:00 Test Item Value Reference Range Interpretation Comments MPV (test code = MPV) 8.1 7.4-10.4 [facility] CenterHbsoogvOHQXRLMNSC5152-11-73 15:34:00 Test Item Value Reference Range Interpretation Comments PT (test code = PT) 13.1 s 12.0-14.7 [facility] HospitalWkobkgtMVGZHCFOCB5970-24-49 15:34:00 Test Item Value Reference Range Interpretation Comments INR (test code = INR) 1.00 1 0.85-1.17 [facility] CenterEyptnjvCRYSWFGRIC1347-85-62 15:34:00 Test Item Value Reference Range Interpretation Comments PTT (test code = PTT) 28.7 s 22.9-35.8 [facility] CenterIttscfeHZLWTPQIZR3537-05-07 15:34:00 Test Item Value Reference Range Interpretation Comments Coronavirus (COVID-19) Not Detected (02/18/21 MAURA (test code = 10:34 AM) Coronavirus (COVID-19) MAURA) [facility] [id number] 15:34:00 Test Item Value Reference Range Interpretation Comments Hgb A1C (test code = Hgb A1C) 5.9 [facility] [id number] 15:34:00 Test Item Value Reference Range Interpretation Comments ABO/Rh (test code = ABO/Rh) O POS [facility] [id number] 15:34:00 Test Item Value Reference Range Interpretation Comments Antibody Scrn (test Negative (02/18/21 10:34 code = Antibody Scrn) AM) [facility] [employer] [id number] 15:34:00 Test Item Value Reference Range Interpretation Comments Glucose Lvl (test code = Glucose Lvl) 111 70-99 [facility] [employer] [id number] 15:34:00 Test Item Value Reference Range Interpretation Comments BUN (test code = BUN) 21 7-22 [facility] CenterViridity SoftwareATRIUM HEALTH MOUNTAIN ISLANDLTBKY6536-51-38 15:34:00 Test Item Value Reference Range Interpretation Comments Creatinine Lvl (test code = Creatinine 1.32 0.50-1.40 Lvl) [facility] CenterViridity SoftwareATRIUM HEALTH MOUNTAIN [id number] 15:34:00 Test Item Value Reference Range Interpretation Comments Sodium Lvl (test code = Sodium Lvl) 139 135-145 [facility] CenterViridity SoftwareATRIUM HEALTH MOUNTAIN ISLANDKFNLG0483-86-36 15:34:00 Test Item Value Reference Range Interpretation Comments Potassium Lvl (test code = Potassium 4.4 3.5-5.1 Lvl) [facility]ID[facility] [id number] 15:34:00 Test Item Value Reference Range Interpretation Comments Chloride Lvl (test code = Chloride Lvl) 107 95-109 [facility] CenterViridity SoftwareATRIUM HEALTH MOUNTAIN ISLANDRJGLB2587-82-77 15:34:00 Test Item Value Reference Range Interpretation Comments CO2 (test code = CO2) 27 24-32 [facility] CenterViridity SoftwareATRIUM HEALTH MOUNTAIN [id number] 15:34:00 Test Item Value Reference Range Interpretation Comments Calcium Lvl (test code = Calcium Lvl) 9.1 8.5-10.5 [facility] [id number] 15:34:00 Test Item Value Reference Range Interpretation Comments Total Protein (test code = Total 7.7 6.4-8.4 Protein) [facility] [id number] 15:34:00 Test Item Value Reference Range Interpretation Comments Albumin Lvl (test code = Albumin Lvl) 4.0 3.5-5.0 [facility] [id number] 15:34:00 Test Item Value Reference Range Interpretation Comments ALT (test code = ALT) 24 <=65 [facility] [id number] 15:34:00 Test Item Value Reference Range Interpretation Comments AST (test code = AST) 19 <=37 [facility] [id number] 15:34:00 Test Item Value Reference Range Interpretation Comments Alk Phos (test code = Alk Phos) 64 39-136 [facility] CenterViridity SoftwareATRIUM HEALTH MOUNTAIN [id number] 15:34:00 Test Item Value Reference Range Interpretation Comments Bili Total (test code = Bili Total) 0.4 0.2-1.3 [place] 687901-06-04 15:34:00 Test Item Value Reference Range Interpretation Comments AGAP (test code = AGAP) 9.4 10.0-20.0 [place] [address]-06-04 15:34:00 Test Item Value Reference Range Interpretation Comments B/C Ratio (test code = B/C Ratio) 16 1 6-[address]06-04 15:34:00 Test Item Value Reference Range Interpretation Comments Globulin (test code = Globulin) 3.7 2.7-4.[address]06-04 15:34:00 Test Item Value Reference Range Interpretation Comments A/G Ratio (test code = A/G Ratio) 1.1 1 0.7-1.[address]06-04 15:34:00 Test Item Value Reference Range Interpretation Comments eGFR (test code = eGFR) 38 [place] [address]-06-04 15:34:00 Test Item Value Reference Range Interpretation Comments Segs (test code = Segs) 49.7 45.0-75.0 [place] [address]-06-04 15:34:00 Test Item Value Reference Range Interpretation Comments Lymphocytes (test code = Lymphocytes) 39.6 20.0-40.0 [address]06-04 15:34:00 Test Item Value Reference Range Interpretation Comments Monocytes (test code = Monocytes) 6.6 2.0-12.[address]06-04 15:34:00 Test Item Value Reference Range Interpretation Comments Eosinophils (test code = Eosinophils) 3.6 <=4.0 [place] [address]-06-04 15:34:00 Test Item Value Reference Range Interpretation Comments Basophils (test code = Basophils) 0.5 <=1.0 [place] [address]-06-04 15:34:00 Test Item Value Reference Range Interpretation Comments Neutrophils # (test code = Neutrophils 3.5 1.5-8.1 #) [place] [address]-06-04 15:34:00 Test Item Value Reference Range Interpretation Comments Lymphocytes # (test code = Lymphocytes 2.8 1.0-5.5 #) [address]06-04 15:34:00 Test Item Value Reference Range Interpretation Comments Monocytes # (test code = Monocytes #) 0.5 <=0.8 [place] 828961-06-04 15:34:00 Test Item Value Reference Range Interpretation Comments Eosinophils # (test code = Eosinophils 0.3 <=0.5 #) [place] 828961-06-04 15:34:00 Test Item Value Reference Range Interpretation Comments WBC (test code = WBC) 7.0 3.7-10.4 [place] 828961-06-04 15:34:00 Test Item Value Reference Range Interpretation Comments RBC (test code = RBC) 4.83 4.20-5.40 [place] 828961-06-04 15:34:00 Test Item Value Reference Range Interpretation Comments Hgb (test code = Hgb) 12.7 12.0-16.0 [place] [address]-06-04 15:34:00 Test Item Value Reference Range Interpretation Comments Hct (test code = Hct) 38.3 36.0-48.0 [place] 828961-06-04 15:34:00 Test Item Value Reference Range Interpretation Comments MCV (test code = MCV) 79.3 80.0-98.0 [facility] CenterYayziybTKXTNDNMGI1730-75-28 15:34:00 Test Item Value Reference Range Interpretation Comments MCH (test code = MCH) 26.3 pg 27.0-31.0 [facility] CenterEgzcqzoRQNRFGTPCV6492-40-19 15:34:00 Test Item Value Reference Range Interpretation Comments MCHC (test code = MCHC) 33.1 32.0-36.0 [facility] CenterUusbrecCLBTISNGSM7911-03-75 15:34:00 Test Item Value Reference Range Interpretation Comments RDW (test code = RDW) 15.1 11.5-14.5 [place] [address]-06-04 15:34:00 Test Item Value Reference Range Interpretation Comments Platelet (test code = Platelet) 289 133-450 [facility] CenterAauseirOAKFLUGKYZ7539-23-54 15:34:00 Test Item Value Reference Range Interpretation Comments MPV (test code = MPV) 8.1 7.4-10.4 [place] 828961-06-04 15:34:00 Test Item Value Reference Range Interpretation Comments PT (test code = PT) 13.1 s 12.0-14.7 [facility]AjgnqseMZBKSTDGAP4430-87-18 15:34:00 Test Item Value Reference Range Interpretation Comments INR (test code = INR) 1.00 1 0.85-1.17 [facility] CenterYqueqcqMODVJSKOOO7792-38-03 15:34:00 Test Item Value Reference Range Interpretation Comments PTT (test code = PTT) 28.7 s 22.9-35.8 [facility] CenterTvlmqrbFZWNIPCPJK8429-26-38 15:34:00 Test Item Value Reference Range Interpretation Comments Coronavirus (COVID-19) Not Detected (02/18/21 MAURA (test code = 10:34 AM) Coronavirus (COVID-19) MAURA) [facility] [id number] 15:34:00 Test Item Value Reference Range Interpretation Comments Hgb A1C (test code = Hgb A1C) 5.9 [facility] [employer] [id number] 15:34:00 Test Item Value Reference Range Interpretation Comments ABO/Rh (test code = ABO/Rh) O POS [facility] [employer] [id number] 15:34:00 Test Item Value Reference Range Interpretation Comments Antibody Scrn (test Negative (02/18/21 10:34 code = Antibody Scrn) AM) [facility] [employer]2021-06-04 15:34:00 Test Item Value Reference Range Interpretation Comments Glucose Lvl (test code = Glucose Lvl) 111 70-99 [facility] [employer]2021-06-04 15:34:00 Test Item Value Reference Range Interpretation Comments BUN (test code = BUN) 21 7-22 [facility] [employer]2021-06-04 15:34:00 Test Item Value Reference Range Interpretation Comments Creatinine Lvl (test code = Creatinine 1.32 0.50-1.40 Lvl) [employer]2021-06-04 15:34:00 Test Item Value Reference Range Interpretation Comments Sodium Lvl (test code = Sodium Lvl) 139 135-145 [facility] [employer]2021-06-04 15:34:00 Test Item Value Reference Range Interpretation Comments Potassium Lvl (test code = Potassium 4.4 3.5-5.1 Lvl) [employer]2021-06-04 15:34:00 Test Item Value Reference Range Interpretation Comments Chloride Lvl (test code = Chloride Lvl) 107 95-109 [facility]2021-06-04 15:34:00 Test Item Value Reference Range Interpretation Comments CO2 (test code = CO2) 27 24-32 [place] 687901-06-04 15:34:00 Test Item Value Reference Range Interpretation Comments Calcium Lvl (test code = Calcium Lvl) 9.1 8.5-10.5 [facility] CenterViridity SoftwareMAURICE VILLE [id number] 15:34:00 Test Item Value Reference Range Interpretation Comments Total Protein (test code = Total 7.7 6.4-8.4 Protein) [facility] CenterViridity SoftwareATRIUM HEALTH MOUNTAIN ISLANDGQFMK5600-74-14 15:34:00 Test Item Value Reference Range Interpretation Comments Albumin Lvl (test code = Albumin Lvl) 4.0 3.5-5.0 [facility] CenterViridity SoftwareMAURICE VILLE [id number] 15:34:00 Test Item Value Reference Range Interpretation Comments ALT (test code = ALT) 24 <=65 [facility] CenterViridity SoftwareMAURICE VILLE [address]LGVKR3240-81-78 15:34:00 Test Item Value Reference Range Interpretation Comments AST (test code = AST) 19 <=37 [facility] CenterViridity SoftwareMAURICE V[place]LE [address]PQZDB8403-08-62 15:34:00 Test Item Value Reference Range Interpretation Comments Alk Phos (test code = Alk Phos) 64 39-136 [facility] CenterIDbyME MFZCK9536-86-09 15:34:00 Test Item Value Reference Range Interpretation Comments Bili Total (test code = Bili Total) 0.4 0.2-1.3 [facility]2021-06-04 15:34:00 Test Item Value Reference Range Interpretation Comments AGAP (test code = AGAP) 9.4 10.0-20.0 [facility] CenterViridity SoftwareATRIUM HEALTH MOUNTAIN ISLANDWDOGS1953-06-33 15:34:00 Test Item Value Reference Range Interpretation Comments B/C Ratio (test code = B/C Ratio) 16 1 6-25 [facility] CenterViridity SoftwareMAURICE VILLE [id number] 15:34:00 Test Item Value Reference Range Interpretation Comments Globulin (test code = Globulin) 3.7 2.7-4.2 [place] 687901-06-04 15:34:00 Test Item Value Reference Range Interpretation Comments A/G Ratio (test code = A/G Ratio) 1.1 1 0.7-1.6 [place] 687901-06-04 15:34:00 Test Item Value Reference Range Interpretation Comments eGFR (test code = eGFR) [address]06-04 15:34:00 Test Item Value Reference Range Interpretation Comments Segs (test code = Segs) 49.7 45.0-75.0 [address]06-04 15:34:00 Test Item Value Reference Range Interpretation Comments Lymphocytes (test code = Lymphocytes) 39.6 20.0-40.0 [address]06-04 15:34:00 Test Item Value Reference Range Interpretation Comments Monocytes (test code = Monocytes) 6.6 2.0-12.0 [address]06-04 15:34:00 Test Item Value Reference Range Interpretation Comments Eosinophils (test code = Eosinophils) 3.6 <=4.0 [place] [address]-06-04 15:34:00 Test Item Value Reference Range Interpretation Comments Basophils (test code = Basophils) 0.5 <=1.0 [place] [address]-06-04 15:34:00 Test Item Value Reference Range Interpretation Comments Neutrophils # (test code = Neutrophils 3.5 1.5-8.1 #) [facility] CenterAhatuzlIXGPZQRTWF3201-21-53 15:34:00 Test Item Value Reference Range Interpretation Comments Lymphocytes # (test code = Lymphocytes 2.8 1.0-5.5 #) [place] 828961-06-04 15:34:00 Test Item Value Reference Range Interpretation Comments Monocytes # (test code = Monocytes #) 0.5 <=0.8 [place] [address]-06-04 15:34:00 Test Item Value Reference Range Interpretation Comments Eosinophils # (test code = Eosinophils 0.3 <=0.5 #) [address]06-04 15:34:00 Test Item Value Reference Range Interpretation Comments WBC (test code = WBC) 7.0 3.7-10.4 [place] [address]-06-04 15:34:00 Test Item Value Reference Range Interpretation Comments RBC (test code = RBC) 4.83 4.20-5.40 [place] [address]-06-04 15:34:00 Test Item Value Reference Range Interpretation Comments Hgb (test code = Hgb) 12.7 12.0-16.0 [facility] HospitalFnxjundDCOYLULPPA8451-27-42 15:34:00 Test Item Value Reference Range Interpretation Comments Hct (test code = Hct) 38.3 36.0-48.0 [facility] HospitalLpafzahPBFPIDSHAF5069-37-87 15:34:00 Test Item Value Reference Range Interpretation Comments MCV (test code = MCV) 79.3 80.0-98.0 [facility] HospitalUazevtjMNQZSVQGSV2090-74-32 15:34:00 Test Item Value Reference Range Interpretation Comments MCH (test code = MCH) 26.3 pg 27.0-31.0 [facility] HospitalJqebpdgSBCDTPZATQ0897-39-18 15:34:00 Test Item Value Reference Range Interpretation Comments MCHC (test code = MCHC) 33.1 32.0-36.0 [facility] HospitalHcefuqwYBRHABKIAS5832-54-18 15:34:00 Test Item Value Reference Range Interpretation Comments RDW (test code = RDW) 15.1 11.5-14.5 [facility] HospitalNdffqesAIDQDJVJNM7164-86-01 15:34:00 Test Item Value Reference Range Interpretation Comments Platelet (test code = Platelet) 289 133-450 [facility] HospitalPbwsvnqAJVPJDSPLL7121-33-97 15:34:00 Test Item Value Reference Range Interpretation Comments MPV (test code = MPV) 8.1 7.4-10.4 [facility] HospitalDuvaqocEZSRVCVHHY5779-48-79 15:34:00 Test Item Value Reference Range Interpretation Comments PT (test code = PT) 13.1 s 12.0-14.7 [facility] HospitalJfixomqKAORUOTSOM2997-87-29 15:34:00 Test Item Value Reference Range Interpretation Comments INR (test code = INR) 1.00 1 0.85-1.17 [facility]WmjefobUELNQNWPIM6682-30-22 15:34:00 Test Item Value Reference Range Interpretation Comments PTT (test code = PTT) 28.7 s 22.9-35.8 [facility] HospitalLidanynFRAVCXBAXV7055-09-41 15:34:00 Test Item Value Reference Range Interpretation Comments Coronavirus (COVID-19) Not Detected (02/18/21 MAURA (test code = 10:34 AM) Coronavirus (COVID-19) MAURA) [facility] [id number] 15:34:00 Test Item Value Reference Range Interpretation Comments Hgb A1C (test code = Hgb A1C) 5.9 [facility] CenterFreedu.in [id number] 15:34:00 Test Item Value Reference Range Interpretation Comments ABO/Rh (test code = ABO/Rh) O POS [facility] [employer] [facility] [id number] 15:34:00 Test Item Value Reference Range Interpretation Comments Antibody Scrn (test Negative (02/18/21 10:34 code = Antibody Scrn) AM) [facility] [employer] [id number] 15:34:00 Test Item Value Reference Range Interpretation Comments Glucose Lvl (test code = Glucose Lvl) 111 70-99 [facility] [employer] [id number] 15:34:00 Test Item Value Reference Range Interpretation Comments BUN (test code = BUN) 21 7-22 [facility] [employer] [id number] 15:34:00 Test Item Value Reference Range Interpretation Comments Creatinine Lvl (test code = Creatinine 1.32 0.50-1.40 Lvl) [facility] [employer] [id number] 15:34:00 Test Item Value Reference Range Interpretation Comments Sodium Lvl (test code = Sodium Lvl) 139 135-145 [facility] [employer] [id number] 15:34:00 Test Item Value Reference Range Interpretation Comments Potassium Lvl (test code = Potassium 4.4 3.5-5.1 Lvl) [facility] [employer] [id number] 15:34:00 Test Item Value Reference Range Interpretation Comments Chloride Lvl (test code = Chloride Lvl) 107 95-109 [facility] [employer] [id number] 15:34:00 Test Item Value Reference Range Interpretation Comments CO2 (test code = CO2) 27 24-32 [facility] [employer] [id number] 15:34:00 Test Item Value Reference Range Interpretation Comments Calcium Lvl (test code = Calcium Lvl) 9.1 8.5-10.5 [facility] [employer] [id number] 15:34:00 Test Item Value Reference Range Interpretation Comments Total Protein (test code = Total 7.7 6.4-8.4 Protein) [facility] [employer] [id number] 15:34:00 Test Item Value Reference Range Interpretation Comments Albumin Lvl (test code = Albumin Lvl) 4.0 3.5-5.0 [facility] [employer] [id number] 15:34:00 Test Item Value Reference Range Interpretation Comments ALT (test code = ALT) 24 <=65 [place] 687901-06-04 15:34:00 Test Item Value Reference Range Interpretation Comments AST (test code = AST) 19 <=37 [place] 687901-06-04 15:34:00 Test Item Value Reference Range Interpretation Comments Alk Phos (test code = Alk Phos) 64 39-136 [place] 687901-06-04 15:34:00 Test Item Value Reference Range Interpretation Comments Bili Total (test code = Bili Total) 0.4 0.2-1.3 [place] 687901-06-04 15:34:00 Test Item Value Reference Range Interpretation Comments AGAP (test code = AGAP) 9.4 10.0-20.0 [place] 687901-06-04 15:34:00 Test Item Value Reference Range Interpretation Comments B/C Ratio (test code = B/C Ratio) 16 1 6-25 [place] [address]-06-04 15:34:00 Test Item Value Reference Range Interpretation Comments Globulin (test code = Globulin) 3.7 2.7-4.2 [place] 687901-06-04 15:34:00 Test Item Value Reference Range Interpretation Comments A/G Ratio (test code = A/G Ratio) 1.1 1 0.7-1.6 [place] [address]-06-04 15:34:00 Test Item Value Reference Range Interpretation Comments eGFR (test code = eGFR) 38 [place] 828961-06-04 15:34:00 Test Item Value Reference Range Interpretation Comments Segs (test code = Segs) 49.7 45.0-75.0 [place] [address]-06-04 15:34:00 Test Item Value Reference Range Interpretation Comments Lymphocytes (test code = Lymphocytes) 39.6 20.0-40.0 [place] [address]-06-04 15:34:00 Test Item Value Reference Range Interpretation Comments Monocytes (test code = Monocytes) 6.6 2.0-12.0 [place] [address]-06-04 15:34:00 Test Item Value Reference Range Interpretation Comments Eosinophils (test code = Eosinophils) 3.6 <=4.0 [place] [address]-06-04 15:34:00 Test Item Value Reference Range Interpretation Comments Basophils (test code = Basophils) 0.5 <=1.0 [place] [address]-06-04 15:34:00 Test Item Value Reference Range Interpretation Comments Neutrophils # (test code = Neutrophils 3.5 1.5-8.1 #) [place] 828961-06-04 15:34:00 Test Item Value Reference Range Interpretation Comments Lymphocytes # (test code = Lymphocytes 2.8 1.0-5.5 #) [place] 828961-06-04 15:34:00 Test Item Value Reference Range Interpretation Comments Monocytes # (test code = Monocytes #) 0.5 <=0.8 [place] [address]-06-04 15:34:00 Test Item Value Reference Range Interpretation Comments Eosinophils # (test code = Eosinophils 0.3 <=0.5 #) [facility] CenterLojolktNTNBREPCZB0329-84-48 15:34:00 Test Item Value Reference Range Interpretation Comments WBC (test code = WBC) 7.0 3.7-10.4 [place] [address]-06-04 15:34:00 Test Item Value Reference Range Interpretation Comments RBC (test code = RBC) 4.83 4.20-5.40 [place] 828961-06-04 15:34:00 Test Item Value Reference Range Interpretation Comments Hgb (test code = Hgb) 12.7 12.0-16.0 [place] 828961-06-04 15:34:00 Test Item Value Reference Range Interpretation Comments Hct (test code = Hct) 38.3 36.0-48.0 [place] 828961-06-04 15:34:00 Test Item Value Reference Range Interpretation Comments MCV (test code = MCV) 79.3 80.0-98.0 [place] [address]-06-04 15:34:00 Test Item Value Reference Range Interpretation Comments MCH (test code = MCH) 26.3 pg 27.0-31.0 [place] [address]-06-04 15:34:00 Test Item Value Reference Range Interpretation Comments MCHC (test code = MCHC) 33.1 32.0-36.0 [place] [address]-06-04 15:34:00 Test Item Value Reference Range Interpretation Comments RDW (test code = RDW) 15.1 11.5-14.5 [facility] HospitalHdfeiewQHGZXZQYNK9075-83-51 15:34:00 Test Item Value Reference Range Interpretation Comments Platelet (test code = Platelet) 289 133-450 [facility] CenterLeqpzljFXPKBDHWXX9377-77-38 15:34:00 Test Item Value Reference Range Interpretation Comments MPV (test code = MPV) 8.1 7.4-10.4 [facility] CenterUjvdqbzYNDKQSYAMH0126-06-13 15:34:00 Test Item Value Reference Range Interpretation Comments PT (test code = PT) 13.1 s 12.0-14.7 [facility] HospitalIvlflqkEZKDUDWFQO5974-73-12 15:34:00 Test Item Value Reference Range Interpretation Comments INR (test code = INR) 1.00 1 0.85-1.17 [facility] HospitalXjdyucyDNEXBXDWNR6919-43-09 15:34:00 Test Item Value Reference Range Interpretation Comments PTT (test code = PTT) 28.7 s 22.9-35.8 [facility]ActmjllGUYVYSNGYG9469-58-00 15:34:00 Test Item Value Reference Range Interpretation Comments Coronavirus (COVID-19) Not Detected (02/18/21 MAURA (test code = 10:34 AM) Coronavirus (COVID-19) MAURA) [facility] [id number] 15:34:00 Test Item Value Reference Range Interpretation Comments Hgb A1C (test code = Hgb A1C) 5.9 [facility] HospitalAytczylOHTQGLTPIO7925-65-10 15:34:00 Test Item Value Reference Range Interpretation Comments Lymphocytes # (test code = Lymphocytes 2.8 1.0-5.5 #) [facility] HospitalKmxbgivUFUBXJMWWF7179-68-44 15:34:00 Test Item Value Reference Range Interpretation Comments Monocytes # (test code = Monocytes #) 0.[address] [facility] CenterDzifaccVCTBHJFERE7057-02-26 15:34:00 Test Item Value Reference Range Interpretation Comments Eosinophils # (test code = Eosinophils 0.3 <=0.5 #) [facility] CenterFcbhbinMDNHONWRJZ8494-89-99 15:34:00 Test Item Value Reference Range Interpretation Comments WBC (test code = WBC) 7.0 3.7-10.4 [facility] CenterCoupnfiDISXWOQHVY3267-54-53 15:34:00 Test Item Value Reference Range Interpretation Comments RBC (test code = RBC) 4.83 4.20-5.40 [facility] CenterFzzydlrANAWLNZPNM4382-05-22 15:34:00 Test Item Value Reference Range Interpretation Comments Hgb (test code = Hgb) 12.7 12.0-16.0 [facility] CenterJitubefKXWHDLNIEN6527-00-10 15:34:00 Test Item Value Reference Range Interpretation Comments Hct (test code = Hct) 38.3 36.0-48.0 [facility] CenterXtbzuebRIYVUYLLAP7701-99-82 15:34:00 Test Item Value Reference Range Interpretation Comments MCV (test code = MCV) 79.3 80.0-98.0 [facility] CenterYsoguzdSKGXAAZSTX4754-29-35 15:34:00 Test Item Value Reference Range Interpretation Comments MCH (test code = MCH) 26.3 pg 27.0-31.0 [facility] CenterTaincvcDUQEMPERKG9025-28-90 15:34:00 Test Item Value Reference Range Interpretation Comments MCHC (test code = MCHC) 33.1 32.0-36.0 [facility] CenterLkicenqHEHGCDCKDC7373-27-24 15:34:00 Test Item Value Reference Range Interpretation Comments RDW (test code = RDW) 15.1 11.5-14.5 [facility] CenterTjckbaaZLXSAOCSCG4589-50-23 15:34:00 Test Item Value Reference Range Interpretation Comments Platelet (test code = Platelet) 289 133-450 [facility] CenterPkwvfpsGOPSFVMXPA5636-75-01 15:34:00 Test Item Value Reference Range Interpretation Comments MPV (test code = MPV) 8.1 7.4-10.4 [facility] CenterAcaqtabYKFRBBVLLS8956-48-20 15:34:00 Test Item Value Reference Range Interpretation Comments PT (test code = PT) 13.1 s 12.0-14.7 [facility] CenterOkoezeoAHPABZRPRP9759-38-87 15:34:00 Test Item Value Reference Range Interpretation Comments INR (test code = INR) 1.00 1 0.85-1.17 [facility] CenterIkvmmdwEGWMRDUNQI7604-35-03 15:34:00 Test Item Value Reference Range Interpretation Comments PTT (test code = PTT) 28.7 s 22.9-35.8 [facility]YmdynbyEJQNVQLFYV5466-27-74 15:34:00 Test Item Value Reference Range Interpretation Comments Coronavirus (COVID-19) Not Detected (02/18/21 MAURA (test code = 10:34 AM) Coronavirus (COVID-19) MAURA) [facility] [id number] 15:34:00 Test Item Value Reference Range Interpretation Comments Hgb A1C (test code = Hgb A1C) 5.9 [facility]Freedu[facility]in [id number] 15:34:00 Test Item Value Reference Range Interpretation Comments ABO/Rh (test code = ABO/Rh) O POS [facility] [id number] 15:34:00 Test Item Value Reference Range Interpretation Comments Antibody Scrn (test Negative (02/18/21 10:34 code = Antibody Scrn) AM) [facility] HospitalInMage Systems [id number] 15:34:00 Test Item Value Reference Range Interpretation Comments Glucose Lvl (test code = Glucose Lvl) 111 70-99 [facility]IDbyME ITBWS7531-08-54 15:34:00 Test Item Value Reference Range Interpretation Comments BUN (test code = BUN) 21 7-22 [facility]ID[facility] HMCWW1514-13-00 15:34:00 Test Item Value Reference Range Interpretation Comments Creatinine Lvl (test code = Creatinine 1.32 0.50-1.40 Lvl) [facility] ACYAX8394-42-04 15:34:00 Test Item Value Reference Range Interpretation Comments Sodium Lvl (test code = Sodium Lvl) 139 135-145 [facility]ID[facility] GOOHO3021-47-89 15:34:00 Test Item Value Reference Range Interpretation Comments Potassium Lvl (test code = Potassium 4.4 3.5-5.1 Lvl) [facility]ID[facility] TBQJF6298-07-18 15:34:00 Test Item Value Reference Range Interpretation Comments Chloride Lvl (test code = Chloride Lvl) 107 95-109 [facility]ID[facility] [id number] 15:34:00 Test Item Value Reference Range Interpretation Comments CO2 (test code = CO2) 27 24-32 [facility]InM[facility] Systems [id number] 15:34:00 Test Item Value Reference Range Interpretation Comments Calcium Lvl (test code = Calcium Lvl) 9.1 8.5-10.5 [facility]ID[facility] ETSDU0608-14-75 15:34:00 Test Item Value Reference Range Interpretation Comments Total Protein (test code = Total 7.7 6.4-8.4 Protein) [facility]2021-06-04 15:34:00 Test Item Value Reference Range Interpretation Comments Albumin Lvl (test code = Albumin Lvl) 4.0 3.5-5.0 [place] 687901-06-04 15:34:00 Test Item Value Reference Range Interpretation Comments ALT (test code = ALT) 24 <=65 [place] 687901-06-04 15:34:00 Test Item Value Reference Range Interpretation Comments AST (test code = AST) 19 <=37 [place] 687901-06-04 15:34:00 Test Item Value Reference Range Interpretation Comments Alk Phos (test code = Alk Phos) 64 39-136 [place] 687901-06-04 15:34:00 Test Item Value Reference Range Interpretation Comments Bili Total (test code = Bili Total) 0.4 0.2-1.3 [place] 687901-06-04 15:34:00 Test Item Value Reference Range Interpretation Comments AGAP (test code = AGAP) 9.4 10.0-20.0 [place] 687901-06-04 15:34:00 Test Item Value Reference Range Interpretation Comments B/C Ratio (test code = B/C Ratio) 16 1 6-25 [place] 687901-06-04 15:34:00 Test Item Value Reference Range Interpretation Comments Globulin (test code = Globulin) 3.7 2.7-4.2 [place] 687901-06-04 15:34:00 Test Item Value Reference Range Interpretation Comments A/G Ratio (test code = A/G Ratio) 1.1 1 0.7-1.6 [place] 687901-06-04 15:34:00 Test Item Value Reference Range Interpretation Comments eGFR (test code = eGFR) 38 [place] 828961-06-04 15:34:00 Test Item Value Reference Range Interpretation Comments Segs (test code = Segs) 49.7 45.0-75.0 [place] 828961-06-04 15:34:00 Test Item Value Reference Range Interpretation Comments Lymphocytes (test code = Lymphocytes) 39.6 20.0-40.0 [place] 828961-06-04 15:34:00 Test Item Value Reference Range Interpretation Comments Monocytes (test code = Monocytes) 6.6 2.0-12.0 [facility] H[id number] 15:34:00 Test Item Value Reference Range Interpretation Comments Eosinophils (test code = Eosinophils) 3.[address] [facility] CenterJjdotilMSVUEFLYLR8839-90-77 15:34:00 Test Item Value Reference Range Interpretation Comments Basophils (test code = Basophils) 0.[address] [facility] CenterNwcoopdWMFMFUQLZL6910-31-49 15:34:00 Test Item Value Reference Range Interpretation Comments Neutrophils # (test code = Neutrophils 3.5 1.5-8.1 #) [facility] [id number] 22:03:42 Test Item Value Reference Range Interpretation Comments IRON (test code = 2904076062) 80 ug/dL 50-160 TIBC (test code = 5898167065) 386 ug/dL 250-410 % FE SAT (test code = 4542860837) 21 % 20-50 Lab Interpretation (test code = Normal 91297-9) [facility] CenterGLYCOSYLATED HEMOGLOBIN (A1C)2021-01-26 17:18:15 Test Item Value Reference Range Interpretation Comments HGB A1C (test code = 6.0 % 4.0-5.7 H 4548-4) KANU (test code = KANU) Reference RangesNormal: <5.7%Prediabetes: 5.7 - 6.4%Diabetes: > 6.5% Lab Interpretation (test Abnormal code = 58981-9) [facility] CenterFERRITIN [id number] 17:13:28 Test Item Value Reference Range Interpretation Comments FERRITIN (test code = 13.0 ng/mL 11.0-264.0 7666949310) KANU (test code = KANU) Biotin has been reported to cause a negative bias, interpret results relative to patient's use of biotin. Lab Interpretation (test Normal code = 58862-0) [facility] CenterTHYROID STIMULATING [id number] 17:09:08 Test Item Value Reference Range Interpretation Comments TSH (test code = See_Comment [Automated message] 6361219102) The system [employer] generated this result transmitted ref erence range: 0.45 - 4 .70 mIU/L. The refe rence range was not u sed to interpret this result as normal/abnor mal. Lab Interpretation (test Normal code = 88734-0) [facility]. METABOLIC PANEL (59824)2021-01-26 16:38:01 Test Item Value Reference Range Interpretation Comments NA (test code = 138 mmol/L 135-145 2410900433) K (test code = 5.2 mmol/L 3.5-5.0 H 9885248984) CL (test code = 103 mmol/L 98-108 7297119664) CO2 TOTAL (test code = 25 mmol/L 23-31 2911083075) AGAP (test code = 2-16 6544840969) BUN (test code = 23 mg/dL 7-23 6160429840) GLUCOSE (test code = 122 mg/dL 70-110 H 4771689866) CREATININE (test code = 1.15 mg/dL 0.50-1.04 H 3735205340) TOTAL BILI (test code = 0.6 mg/dL 0.1-1.7 2254808591) CALCIUM (test code = 9.5 mg/dL 8.6-10.6 4756659431) T PROTEIN (test code = 6.9 g/dL 6.3-8.2 5209622065) ALBUMIN (test code = 4.4 g/dL 3.5-5.0 1713662882) ALK PHOS (test code = 61 U/L 34-122 6394790816) ALTv (test code = 18 U/L 5-35 1742-6) AST(SGOT) (test code = 36 U/L 13-40 8073809075) eGFR (test code = mL/min/1.73m2 8947506409) KANU (test code = KANU) Association of [...] tests). Lab Interpretation Abnormal (test code = 43341-0) [facility] CenterLIPID PANEL (21096)(TOTAL CHOLESTEROL, TRIGLYCERIDES, HDL)2021-01-26 16:38:01 Test Item Value Reference Range Interpretation Comments CHOL (test code = 229 mg/dL 120-200 H 8873473076) HDL (test code = 49 mg/dL >50 L 3112248038) HDLC RATIO (test code = See_Comment H [Au tomated message] 0858732652) The system [employer] generated this result transmit cesar reference range : <=4.5. The refe rence range was not u sed to interpret th is result as normal/abnormal . TRIG (test code = 165 mg/dL 30-170 4490805249) LDL CHOL (test code = 147 mg/dL See_Comment [Auto mated message] 85087-3) The system [employer] generated this result transmit cesar reference range : <=160. The refe rence range was not u sed to interpret th is result as normal/abnormal . VLDL (test code = 33 mg/dL 5-60 0893204492) Lab Interpretation (test Abnormal code = 99032-5) [facility] CenterCB WITHOUT [id number] 15:50:14 Test Item Value Reference Range Interpretation Comments WBC (test code = See_Comment [Automated message] The 6690-2) system which ge nerated this result tra [...] MPV (test code = 10.5 fL 9.5-12.9 25199-6) RDW-CV (test code = 14.6 % 12.0-15.5 788-0) RDW-SD (test code = 43.4 fL 39.0-49.9 97625-6) NRBC x10^3 (test <0.01 See_Comment [Automated message] The code = 2329189080) system [facility] generated this result tra nsmitted reference range : 10*3/?L. The reference r dayana was not used to int erpret this result as normal/abnormal . NRBC/100 WBC (test See_Comment [Automat ed message] The code = 4028681595) system [facility] generated this result tra nsmitted reference range : 0.0 - 10.0 /100 WBCs. The reference range was not used to interpr et this result as normal/abnormal . IPF % (test code = 3730677431) [facility] CenterCT ABDOMEN PELVIS W [id number] 21:14:58 Colonic diverticulosis with sigmoid haustral edema [...] reviewed this study and agree withthe above report.[facility] CenterUrinalysis2021-02-28 20:07:00 Test Item Value Reference Range Interpretation Comments APPEARANCE (test code = Cloudy Clear A 1063387058) COLOR (test code = Shirlene Yellow A 4433308063) PH (test code = 4.8-8.0 0037238403) SP GRAVITY (test code = 1.003-1.030 1385517711) GLU U QUAL (test code = Normal Normal 8046822920) BLOOD (test code = Negative Negative 6851386736) KETONES (test code = Negative Negative 9180719166) PROTEIN (test code = 30 mg/dL Negative A 2887-8) UROBILIN (test code = Normal Normal 0695981606) BILIRUBIN (test code = Negative Negative 8758450136) NITRITE (test code = Negative Negative 2131130201) LEUK ULISES (test code = 75/uL Negative A 7816029399) RBC/HPF (test code = See_Comment H [Autom ated message] 0765779513) The system [employer] generated this result transmitted ref erence range: 0 - 3 HP F. The reference range was not used to int erpret this result as normal/abnormal . WBC/HPF (test code = See_Comment H [Autom ated message] 8712394952) The system [employer] generated this result transmitted ref erence range: 0 - 5 HP F. The reference range was not used to int erpret this result as normal/abnormal . BACTERIA (test code = Moderate Negative A 2595091734) MUCOUS (test code = Moderate Negative LPF A 1356781218) SQ EPITH (test code = HPF 3025826461) Lab Interpretation (test Abnormal code = 33469-5) [facility] [id number] 19:43:00 Test Item Value Reference Range Interpretation Comments TROPONIN I (test 0.002 ng/mL See_Comment [Automated code = 2532474486) message] The system which generated this result [...] ? Lab Interpretation Normal (test code = 46671-0) [facility] CenteraPTT2021-02-28 19:40:00 Test Item Value Reference Range Interpretation Comments APTT Patient (test See_Comment [Automat ed code = 3173-2) message] The system which generated this result transmitted reference range : 23 - 38 Seconds . The reference range was not used to interpr et this result as normal/abnormal . KANU (test code = KANU) The [facility] patient population mean normal value for aPTT is 30 seconds. Lab Interpretation Normal (test code = 43138-0) [facility] CenterProthrombin Time (PT) / [id number] 19:38:00 Test Item Value Reference Range Interpretation [...] tions. Lab Interpretation (test Normal code = 69088-4) [facility] CenterBasi Metabolic Panel (NA, K, CL, CO2, GLUCOSE, BUN, CREATININE, CA)2020-11-14 19:32:00 Test Item Value Reference Range Interpretation Comments NA (test code = 136 mmol/L 135-145 7762549067) K (test code = 4.2 mmol/L 3.5-5 1957513194) CL (test code = 103 mmol/L 98-108 6087328081) CO2 TOTAL (test code = 25 mmol/L 23-31 9996548484) AGAP (test code = 2-16 5872690496) BUN (test code = 20 mg/dL 7-23 3525418872) GLUCOSE (test code = 148 mg/dL 70-110 H 3685699546) CREATININE (test code = 1.16 mg/dL 0.5-1.04 H 7658057855) CALCIUM (test code = 9.0 mg/dL 8.6-10.6 6328771864) eGFR Calculation mL/min/1.73m2 (Non-) (test code = 3142237778) eGFR Calculation mL/min/1.73m2 () (test code = 6357371864) KNAU (test code = KANU) Association of Glomerular [...] tests). Lab Interpretation Abnormal (test code = 43032-8) [facility] CenterHepatic Function Panel (ALB, T.PRO, BILI T, BU/BC, ALT, AST, ALK PHOS)2020-11-14 19:32:00 Test Item Value Reference Range Interpretation Comments TOTAL BILI (test code = 4121803324) 0.6 mg/dL 0.1-1.1 BILI UNCON (test code = 5060488994) 0.5 mg/dL 0.1-1.1 BILI CONJ (test code = 4589496665) 0.0 mg/dL 0-0.3 T PROTEIN (test code = 1480643380) 6.9 g/dL 6.3-8.2 ALBUMIN (test code = 7973285540) 4.1 g/dL 3.5-5 ALK PHOS (test code = 0766304335) 69 U/L 34-122 ALTv (test code = 1742-6) 11 U/L 5-35 AST(SGOT) (test code = 0094999021) 19 U/L 13-40 Lab Interpretation (test code = Normal 51040-3) [facility] CenterLipase [id number] 19:31:00 Test Item Value Reference Range Interpretation Comments LIPASE (test code = 1238365276) 42 U/L 0-220 Lab Interpretation (test code = Normal 82907-9) [facility] CenterCOVID-19 (ID NOW RAPID TESTING)2020-11-14 19:31:00 Test Item Value Reference Range Interpretation Comments SARS-CoV-2 Rapid ID NOW Not Detected Not Detected (test code = 15917-0) KANU (test code = KANU) ID NOW COVID-19 Assay is an isothermal nucleic acid amplification test intended for the qualitative detection of nucleic acid from SARS-CoV-2 viral RNA in nasopharyngeal (CONTROL TOWER RADIO OPERATOR) specimens. It is used under Emergency Use [...] indicated. Lab Interpretation Normal (test code = 91280-1) [facility] with Wmfhjkivohif4819-32-00 19:16:00 Test Item Value Reference Range Interpretation Comments WBC (test code = See_Comment H [Automated 9890-2) message] The sy stem which generated this [...] RDW-SD (test code = 41.3 fL 39-49.9 82582-9) RDW-CV (test code = 14.1 % 12-15.5 788-0) PLT (test code = See_Comment [Automated 777-3) message] The sy stem which generated this result transmitted reference range : 166 - 358 10*3/ ?L. The reference r dayana was not used to interpret this result as normal/abnormal . MPV (test code = 10.1 fL 9.5-12.9 50767-7) NRBC/100 WBC (test See_Comment [Automat ed code = 3763232180) message] The system which generated this result transmitted reference range : 0.0 - 10.0 /100 WBCs. The refer ence range was not u sed to interpret th is result as normal/abnormal . NRBC x10^3 (test code <0.01 See_Comment [Auto mated = 0430092784) message] The s [employer] which generated this result transmitted reference range : 10*3/?L. The reference range was not used to interpret this result as normal/abnormal . GRAN MAT (NEUT) % 73.2 % (test code = 770-8) IMM GRAN % (test code 0.70 % = 0173528728) LYMPH % (test code = 18.1 % 736-9) MONO % (test code = 6.6 % 5905-5) EOS % (test code = 1.1 % 713-8) BASO % (test code = 0.3 % 706-2) GRAN MAT x10^3(ANC) 8.41 10*3/uL 1.88-7.09 H (test code = 3985381509) IMM GRAN x10^3 (test 0.08 10*3/uL 0-0.06 H code = 6625867414) LYMPH x10^3 (test code 2.08 10*3/uL 1.32-3.29 = 731-0) MONO x10^3 (test code 0.76 10*3/uL 0.33-0.92 = 742-7) EOS x10^3 (test code = 0.13 10*3/uL 0.03-0.39 711-2) BASO x10^3 (test code 0.04 10*3/uL 0.01-0.07 = 704-7) Lab Interpretation Abnormal (test code = 32045-4) [facility] CenterDEXA AXIAL (HIP AND SPINE)2020-08-25 20:15:51 [...] for each 1.5 SD below the mean. [facility], Radiant Results Inft User - 08/25/2020 2:16 [...] doubles for each 1.5 SD below the mean.[facility] CenterXR HIPS 2 VW BILATERAL 2020-08-25 [...] dislocation in right hip or left hipjoint. [facility], Radiant Results Inft User - 08/25/2020 1:22 [...] or dislocation in right hip or left hipjoint.[facility] COVID-19 (ID NOW RAPID TESTING)2020-06-11 20:18:00 Test Item Value Reference Range Interpretation Comments SARS-CoV-2 Rapid ID NOW Not Detected Not Detected (test code = 91220-2) KANU (test code = KANU) ID NOW COVID-19 Assay is an isothermal nucleic acid amplification test intended for the qualitative detection of nucleic acid from SARS-CoV-2 viral RNA in nasopharyngeal (CONTROL TOWER RADIO OPERATOR) specimens. It is used under Emergency Use [...] indicated. Lab Interpretation Normal (test code = 36210-2) [facility] CenterCOVID-19 (ID NOW RAPID TESTING)2020-06-03 22:06:00 Test Item Value Reference Range Interpretation Comments SARS-CoV-2 Rapid ID NOW Not Detected Not Detected (test code = 37775-3) KANU (test code = KANU) ID NOW COVID-19 Assay is an isothermal nucleic acid amplification test intended for the qualitative detection of nucleic acid from SARS-CoV-2 viral RNA in nasopharyngeal (CONTROL TOWER RADIO OPERATOR) specimens. It is used under Emergency Use [...] indicated. Lab Interpretation Normal (test code = 52679-9) [facility] CenterTroponin [id number] 21:37:00 Test Item Value Reference Range Interpretation Comments TROPONIN I (test 0.002 ng/mL See_Comment [Automated code = 1066351091) message] The system which generated this result [...] ? Lab Interpretation Normal (test code = 70168-3) [facility] CenterN-TERMINAL [id number]-[id number] 21:34:00 Test Item Value Reference Range Interpretation Comments NT-proBNP (test code 62 pg/mL See_Comment [Autom ated = 8871874121) message] The system which generated this result transmitted reference range : <=450. The reference range was not used to interpret this result as normal/abnormal . KANU (test code = KANU) Biotin has been reported to cause a negative bias, interpret results relative to patient's use of biotin. Lab Interpretation Normal (test code = 73522-9) [facility] CenterProthrombin Time (PT) / [id number] 21:30:00 Test Item Value Reference Range Interpretation Comments PROTIME PATIENT (test See_Comment [Auto mated message] code = 5964-2) The system [employer] generated this result transmitted ref erence range: 12.0 - 1 4.7 Seconds. The re ference range was not u sed to interpret this result as normal/abnor mal. INR (test code = 6301-6) Nor mal INR <1.1; Warfarin Therap eutic range 2.0 to 3. 0 or 2.5 to 3.5, dep ending upon the indica tions. Lab Interpretation (test Normal code = 15296-0) [facility] CenterCOMP. METABOLIC PANEL (06585)2020-06-03 21:25:00 Test Item Value Reference Range Interpretation Comments NA (test code = 139 mmol/L 135-145 6440187070) K (test code = 4.1 mmol/L 3.5-5 9189297172) CL (test code = 101 mmol/L 98-108 1398336818) CO2 TOTAL (test code = 24 mmol/L 23-31 9026389476) AGAP (test code = 2-16 3243305130) BUN (test code = 22 mg/dL 7-23 3092442952) GLUCOSE (test code = 118 mg/dL 70-110 H 8675121857) CREATININE (test code = 1.22 mg/dL 0.5-1.04 H 3140952187) TOTAL BILI (test code = 0.4 mg/dL 0.1-1.2 9211340935) CALCIUM (test code = 10.2 mg/dL 8.6-10.6 0570253434) T PROTEIN (test code = 7.7 g/dL 6.3-8.2 1014204667) ALBUMIN (test code = 4.5 g/dL 3.5-5 5033463477) ALK PHOS (test code = 61 U/L 34-122 6876777906) ALTv (test code = 23 U/L 535 1742-6) AST(SGOT) (test code = 27 U/L 13-40 9957578314) eGFR Calculation mL/min/1.73m2 (Non-) (test code = 4653972755) eGFR Calculation mL/min/1.73m2 () (test code = 2489766902) KANU (test code = KANU) Association of [...] tests). Lab Interpretation Abnormal (test code = 82187-8) [facility] CenterXR CHEST 1 VW [id number] 21:16:49 Mild cardiomegaly. Short sliding hiatal hernia. No detectable radiographic findings to suggest COVID-19 pneumonia. Disclaimer: Generally, the findings on chest imaging in COVID-19 are notspecific, andoverlap with other infections, including influenza, H1N1,SARS and MERS.According to the Centers for Disease Control (CDC) and recent statement ofthe [employer], viral testing remains the [...] Disease Control (CDC) and recent statement ofthe [employer], viral testing remains the only specificmethod of diagnosis. Confirmation with the viral test is required, even ifradiologic findings are suggestive of COVID-[address] Preliminary Repor t Dictated by Resident: Saud Chatterjee MD., have reviewed this study and agree with theabove report.[facility] with Sodlnguhxkop3793-03-59 21:09:00 Test Item Value Reference Range Interpretation Comments WBC (test code = See_Comment [Automated message] 6690-2) The system [employer] generated this result transmitted ref erence range: 4.30 - 1 1.10 10*3/?L. The re ference range was not u sed to interpret this result as normal/abnor mal. RBC (test code = See_Comment [Automated message] 789-8) The system [employer] generated this result transmitted ref erence range: [...] RDW-SD (test code 41.1 fL 39-49.9 = 76030-1) RDW-CV (test code 13.9 % 12-15.5 = 788-0) PLT (test code = See_Comment [Automated message] 777-3) The system [employer] generated this result transmitted ref erence range: 166 - 35 8 10*3/?L. The re ference range was not u sed to interpret this result as normal/abnor mal. MPV (test code = 10.3 fL 9.5-12.9 04295-0) NRBC/100 WBC (test See_Comment [Automat ed message] code = 1304764898) The syste m which generated this result transmitted ref erence range: 0.0 - 10 .0 /100 WBCs. The refer ence range was not u sed to interpret this result as normal/abnor mal. NRBC x10^3 (test <0.01 See_Comment [Automated message] code = 1163635869) The syste m which generated this result transmitted ref erence range: 10*3/?L. The reference range was not used to interpr et this result as normal/abnormal . GRAN MAT (NEUT) % 52.1 % (test code = 770-8) IMM GRAN % (test 0.40 % code = 6118874223) LYMPH % (test code 37.9 % = 736-9) MONO % (test code 6.8 % = 5905-5) EOS % (test code = 2.4 % 713-8) BASO % (test code 0.4 % = 706-2) GRAN MAT 3.66 10*3/uL 1.88-7.09 x10^3(ANC) (test code = 4014451599) IMM GRAN x10^3 0.03 10*3/uL 0-0.06 (test code = 3492592521) LYMPH x10^3 (test 2.67 10*3/uL 1.32-3.29 code = 731-0) MONO x10^3 (test 0.48 10*3/uL 0.33-0.92 code = 742-7) EOS x10^3 (test 0.17 10*3/uL 0.03-0.39 code = 711-2) BASO x10^3 (test 0.03 10*3/uL 0.01-0.07 code = 704-7) [facility]SE (AUTOMATED)2019-12-09 21:03:00 Test Item Value Reference Range Interpretation Comments POCT GLU (test code = 3889625034) 184 mg/dL 70-110 H Lab Interpretation (test code = Abnormal 95727-5) [facility] GLUCOSE (AUTOMATED)2019-12-09 16:38:00 Test Item Value Reference Range Interpretation Comments POCT GLU (test code = 5913443792) 157 mg/dL 70-110 H Lab Interpretation (test code = Abnormal 08292-7) [facility] CenterLAB ONLY CORONAVIRUS COVID-19 PCR GNL 2019-12-09 15:52:00 Test Item Value Reference Range Interpretation Comments Coronavirus COVID-19 Not Detected Not Detected (test code = 9669044266) KANU (test code = KANU) Not Detected: A negative result does not preclude COVID-19 infection and should not be used as the sole basis for treatment or other patient management decisions. Negative results must be combined with clinical observations, patient history, and epidemiological information. Presumptive Positive: Specimen will be sent to [facility]/CDC for confirmation testing. Inconclusive: Specimen will be sent to [facility]/CDC for additional testing. Invalid: Please collect a new specimen for repeat patient testing. Disclaimer:This test was developed and its performance characteristics determined by [facility]. It has not been cleared [...] Presumptive Positive: Specimen will be sent to [facility] for confirmation testing. Inconclusive: Specimen will be sent to [facility] for additional testing. Invalid: Please collect a new specimen for repeat patient testing. Disclaimer:This test was developed and its performance characteristics determined by [facility]. It has not been cleared [...] testing. Lab Interpretation Normal (test code = 74879-8) [facility] CenterPOCT GLUCOSE (AUTOMATED)2019-12-09 12:32:00 Test Item Value Reference Range Interpretation Comments POCT GLU (test code = 1737984310) 157 mg/dL 70-110 H Lab Interpretation (test code = Abnormal 29618-9) [facility] CenterTHYROID STIMULATING [id number] 12:24:00 Test Item Value Reference Range Interpretation Comments TSH (test code = See_Comment H [Automated message] 2748629484) The system [employer] generated this result transmitted ref erence range: 0.45 - 4 .70 mIU/L. The refe rence range was not u sed to interpret this result as normal/abnor mal. Lab Interpretation (test Abnormal code = 10172-3) [facility] CenteraPTT (for use with [facility]arin Practice [...] . KANU (test code = KANU) The [facility] patient population mean normal value for aPTT is 30 seconds. Lab Interpretation Abnormal (test code = 80338-6) [facility] Metabolic Panel (NA, K, CL, CO2, GLUCOSE, BUN, CREATININE, CA)2019-12-09 11:53:00 Test Item Value Reference Range Interpretation Comments NA (test code = 136 mmol/L 135-145 6961022332) K (test code = 4.0 mmol/L 3.5-5 3030969326) CL (test code = 100 mmol/L 98-108 9706218053) CO2 TOTAL (test code = 22 mmol/L 23-31 L 4162900997) AGAP (test code = 2-16 8956779655) BUN (test code = 15 mg/dL 7-23 1609125433) GLUCOSE (test code = 155 mg/dL 70-110 H 5426098605) CREATININE (test code = 1.23 mg/dL 0.5-1.04 H 0852424666) CALCIUM (test code = 9.8 mg/dL 8.6-10.6 9467691710) eGFR Calculation mL/min/1.73m2 (Non-) (test code = 5235734811) eGFR Calculation mL/min/1.73m2 () (test code = 9797625097) KANU (test code = KANU) Association of [...] tests). Lab Interpretation Abnormal (test code = 68350-1) [facility] WITH [id number] 11:27:00 Test Item Value Reference Range Interpretation Comments WBC (test code = See_Comment [Automated 9092-2) message] The sy stem which generated this result transmitted reference range : 4.30 - 11.10 10*3/?L. The reference range was not used to interpret this result as normal/abnormal . RBC (test code = See_Comment H [Automated 567-8) message] The sy stem which generated this [...] RDW-SD (test code = 42.8 fL 39-49.9 28693-7) RDW-CV (test code = 14.6 % 12-15.5 788-0) PLT (test code = See_Comment [Automated 977-3) message] The sy stem which generated this result transmitted reference range : 166 - 358 10*3/ ?L. The reference r dayana was not used to interpret this result as normal/abnormal . MPV (test code = 10.2 fL 9.5-12.9 30543-9) NRBC/100 WBC (test See_Comment [Automat ed code = 2577317738) message] The system which generated this result transmitted reference range : 0.0 - 10.0 /100 WBCs. The refer ence range was not u sed to interpret th is result as normal/abnormal . NRBC x10^3 (test code <0.01 See_Comment [Auto mated = 0740970897) message] The s ystem which generated this result transmitted reference range : 10*3/?L. The reference range was not used to interpret this result as normal/abnormal . GRAN MAT (NEUT) % 51.0 % (test code = 770-8) IMM GRAN % (test code 0.50 % = 4641446735) LYMPH % (test code = 36.8 % 736-9) MONO % (test code = 8.2 % 5905-5) EOS % (test code = 3.1 % 713-8) BASO % (test code = 0.4 % 706-2) GRAN MAT x10^3(ANC) 4.10 10*3/uL 1.88-7.09 (test code = 5149458855) IMM GRAN x10^3 (test 0.04 10*3/uL 0-0.06 code = 9504088161) LYMPH x10^3 (test code 2.96 10*3/uL 1.32-3.29 = 731-0) MONO x10^3 (test code 0.66 10*3/uL 0.33-0.92 = 742-7) EOS x10^3 (test code = 0.25 10*3/uL 0.03-0.39 711-2) BASO x10^3 (test code 0.03 10*3/uL 0.01-0.07 = 704-7) Lab Interpretation Abnormal (test code = 57542-1) [facility]2019-12-09 00:28:00 Test Item Value Reference Range Interpretation Comments POCT GLU (test code = 7315036466) 208 mg/dL 70-110 H Lab Interpretation (test code = Abnormal 15121-1) [facility] CenterURINE [id number] 21:28:00 Test Item Value Reference Range Interpretation Comments URINE CULTURE (test No aerobic organisms code = 630-4) isolated [facility]-08 21:15:00 Test Item Value Reference Range Interpretation Comments POCT GLU (test code = 3403257193) 157 mg/dL 70-110 H Lab Interpretation (test code = Abnormal 71266-8) [facility] Test Item Value Reference Range Interpretation Comments APTT Patient (test See_Comment H [Automat ed code = 3173-2) message] The system which generated this result transmitted reference range : 23 - 38 Seconds . The reference range was not used to interpr et this result as normal/abnormal . KANU (test code = KANU) The [facility] patient population mean normal value for aPTT is 30 seconds. Lab Interpretation Abnormal (test code = 04340-6) [facility]2019-12-08 16:46:00 Test Item Value Reference Range Interpretation Comments POCT GLU (test code = 3277384254) 172 mg/dL 70-110 H Lab Interpretation (test code = Abnormal 64289-3) [facility]SE ([facility]2019-12-08 12:20:00 Test Item Value Reference Range Interpretation Comments POCT GLU (test code = 5169357085) 159 mg/dL 70-110 H Lab Interpretation (test code = Abnormal 53270-7) [facility] (for use with Heparin Practice [...] . KANU (test code = KANU) The [facility] patient population mean normal value for aPTT is 30 seconds. Lab Interpretation Abnormal (test code = 83658-2) [facility] WITH [id number] 07:05:00 Test Item Value Reference Range Interpretation [...] RDW-SD (test code = 41.9 fL 39-49.9 68858-2) RDW-CV (test code = 14.7 % 12-15.5 788-0) PLT (test code = See_Comment [Automated 777-3) message] The sy stem which generated this result transmitted reference range : 166 - 358 10*3/ ?L. The reference r dayana was not used to interpret this result as normal/abnormal . MPV (test code = 11.1 fL 9.5-12.9 24982-1) NRBC/100 WBC (test See_Comment [Automat ed code = 7962201780) message] The system which generated this result transmitted reference range : 0.0 - 10.0 /100 WBCs. The refer ence range was not u sed to interpret th is result as normal/abnormal . NRBC x10^3 (test code <0.01 See_Comment [Auto mated = 2279114723) message] The s ystem which generated this result transmitted reference range : 10*3/?L. The reference range was not used to interpret this result as normal/abnormal . GRAN MAT (NEUT) % 61.6 % (test code = 770-8) IMM GRAN % (test code 0.40 % = 1373249461) LYMPH % (test code = 28.3 % 736-9) MONO % (test code = 8.8 % 5905-5) EOS % (test code = 0.7 % 713-8) BASO % (test code = 0.2 % 706-2) GRAN MAT x10^3(ANC) 6.19 10*3/uL 1.88-7.09 (test code = 3875758425) IMM GRAN x10^3 (test 0.04 10*3/uL 0-0.06 code = 4701441439) LYMPH x10^3 (test code 2.85 10*3/uL 1.32-3.29 = 731-0) MONO x10^3 (test code 0.89 10*3/uL 0.33-0.92 = 742-7) EOS x10^3 (test code = 0.07 10*3/uL 0.03-0.39 711-2) BASO x10^3 (test code <0.03 0.01-0.07 = 704-7) Lab Interpretation Abnormal (test code = 28256-7) [facility]2019-12-08 01:01:00 Test Item Value Reference Range Interpretation Comments POCT GLU (test code = 150 mg/dL 70-110 H Notifi ed Provider 2738458596) Lab Interpretation (test Abnormal code = 08645-5) [facility] (for use with Heparin Practice [...] . KANU (test code = KANU) The [facility] patient population mean normal value for aPTT is 30 seconds. Lab Interpretation Abnormal (test code = 32538-3) [facility]SE (AUT[facility]2019-12-07 21:50:00 Test Item Value Reference Range Interpretation Comments POCT GLU (test code = 7486775859) 152 mg/dL 70-110 H Lab Interpretation (test code = Abnormal 61002-2) [facility]SE ([facility]2019-12-07 16:50:00 Test Item Value Reference Range Interpretation Comments POCT GLU (test code = 5684537310) 145 mg/dL 70-110 H Lab Interpretation (test code = Abnormal 55921-1) [facility]2019-[facility] 14:03:00 Test Item [...] Indicated Lab Interpretation Abnormal (test code = 35591-3) [facility]2019-[facility] 13:38:00 Test Item Value Reference Range Interpretation Comments POCT GLU (test code = 1184201935) 134 mg/dL 70-110 H Lab Interpretation (test code = Abnormal 41907-1) [facility] [...] . KANU (test code = KANU) [facility] patient population mean normal value for aPTT is 30 seconds. Lab Interpretation Abnormal (test code = 62462-9) [facility] CenterCT [facility] PULMONARY [id number] 04:05:36 Right upper lobe segmental pulmonary emboli. [...] reviewed this study and agree with theabove report.[facility] CenterProthrombin Time (PT) / INR 2019-12-07 [...] tions. Lab Interpretation (test Normal code = 20267-1) [facility]era[facility]2020-[facility]-22 04:04:00 Test Item Value Reference Range Interpretation Comments APTT Patient (test See_Comment [Automat ed code = 3173-2) message] The system which generated this result transmitted reference range : 23 - 38 Seconds . The reference range was not used to interpr et this result as normal/abnormal . KANU (test code = KANU) [facility] patient population mean normal value for aPTT is 30 seconds. Lab Interpretation Normal (test code = 60536-3) [facility] CenterUrinalysis2020-03-22 03:34:00 Test Item Value Reference Range Interpretation Comments APPEARANCE (test code = Hazy Clear A 1805301075) COLOR (test code = Yellow Yellow 5999781419) PH (test code = 4.8-8.0 1442360560) SP GRAVITY (test code = 1.003-1.030 5912272165) GLU U QUAL (test code = Normal Normal 7723460769) BLOOD (test code = Negative Negative INTERFERE NCE FROM 5037740615) ASCORBIC ACID M AY CAUSE FALSE NEG ATIVE RESULT KETONES (test code = 5 mg/dL Negative A 0649905743) PROTEIN (test code = 30 mg/dL Negative A 2887-8) UROBILIN (test code = Normal Normal 4319459889) BILIRUBIN (test code = Negative Negative 4456008187) NITRITE (test code = Negative Negative 1809476208) LEUK ULISES (test code = 250/uL Negative A 2803063480) RBC/HPF (test code = See_Comment H [Autom ated message] 3832431109) The system [employer] generated this result transmitted ref erence range: 0 - 3 HP F. The reference range was not used to int erpret this result as normal/abnormal . WBC/HPF (test code = See_Comment H [Autom ated message] 1367815700) The system [employer] generated this result transmitted ref erence range: 0 - 5 HP F. The reference range was not used to int erpret this result as normal/abnormal . BACTERIA (test code = Few Negative A 6826238085) MUCOUS (test code = Slight Negative LPF A 1446469774) SQ EPITH (test code = HPF 1314614640) HYAL CAST (test code = See_Comment H [Aut omated message] 3179532569) The system [employer] generated this result transmitted ref erence range: <=2 LPF. The reference range was not used to int erpret this result as normal/abnormal . TRANS EPI (test code = See_Comment H [Aut omated message] 5133058711) The system [employer] generated this result transmitted ref erence range: <=1 HPF. The reference range was not used to int erpret this result as normal/abnormal . GLORIA EPITH (test code = See_Comment H [Aut omated message] 7185070879) The system [employer] generated this result transmitted ref erence range: <=1 HPF. The reference range was not used to int erpret this result as normal/abnormal . Lab Interpretation (test Abnormal code = 60183-6) [facility] 2 [id number] 02:52:25 No acute cardiopulmonary abnormality. Preliminary Report [...] reviewed this study and agree with theabove report.[facility] CenterTrcainnin [id number] 02:31:00 Test Item Value Reference Range Interpretation Comments TROPONIN I (test 0.008 ng/mL See_Comment [Automated code = 7274792014) message] The system which generated this result [...] ? Lab Interpretation Normal (test code = 58445-5) [facility] (NA, K, CL, CO2, GLUCOSE, BUN, CREATININE, CA)2019-12-07 02:19:00 Test Item Value Reference Range Interpretation Comments NA (test code = 141 mmol/L 135-145 7709845897) K (test code = 4.0 mmol/L 3.5-5 4761040252) CL (test code = 102 mmol/L 98-108 5877688930) CO2 TOTAL (test code = 22 mmol/L 23-31 L 8195722051) AGAP (test code = 2-16 H 4846880765) BUN (test code = 17 mg/dL 7-23 2127333346) GLUCOSE (test code = 109 mg/dL 70-110 8145876506) CREATININE (test code = 1.18 mg/dL 0.5-1.04 H 5140488078) CALCIUM (test code = 10.2 mg/dL 8.6-10.6 8407478067) eGFR Calculation mL/min/1.73m2 (Non-) (test code = 0469993296) eGFR Calculation mL/min/1.73m2 () (test code = 3999552400) KANU (test code = KANU) Association of [...] tests). Lab Interpretation Abnormal (test code = 49410-9) [facility] CenterHepatic Function Panel (ALB, T.PRO, BILI T, BU/BC, ALT, AST, ALK PHOS)2019-12-07 02:19:00 Test Item Value Reference Range Interpretation Comments TOTAL BILI (test code = 9965052727) 0.4 mg/dL 0.1-1.1 BILI UNCON (test code = 4074931289) 0.3 mg/dL 0.1-1.1 BILI CONJ (test code = 1604009081) 0.0 mg/dL 0-0.3 T PROTEIN (test code = 6336733271) 8.2 g/dL 6.3-8.2 ALBUMIN (test code = 1819081806) 4.9 g/dL 3.5-5 ALK PHOS (test code = 9889101139) 70 U/L 34-122 ALTv (test code = 1742-6) 27 U/L 5-35 AST(SGOT) (test code = 3314806957) 35 U/L 13-40 Lab Interpretation (test code = Normal 38661-4) [facility] CenterLipase [id number] 02:19:00 Test Item Value Reference Range Interpretation Comments LIPASE (test code = 6186024510) 95 U/L 0-220 Lab Interpretation (test code = Normal 93835-0) [facility] CenterAD,CLC OR LCC ONLY - INFLUENZA A & B DIRECT [id number] 02:17:00 Test Item Value Reference Range Interpretation Comments Influenza A (test code = 11896-7) Negative Negative Influenza B (test code = 14576-3) Negative Negative Lab Interpretation (test code = Normal 54587-0) [facility] CenterCB WITH [id number] 01:58:00 Test Item Value Reference Range Interpretation Comments WBC (test code = See_Comment [Automated message] 5790-2) The system [employer] generated this result transmitted ref erence range: 4.30 - 1 1.10 10*3/?L. The re ference range was not u sed to interpret this result as normal/abnor mal. RBC (test code = See_Comment [Automated message] 329-8) The system [employer] generated this result transmitted ref erence range: [...] RDW-SD (test code 41.4 fL 39-49.9 = 71720-2) RDW-CV (test code 13.9 % 12-15.5 = 788-0) PLT (test code = See_Comment [Automated message] 977-3) The system [employer] generated this result transmitted ref erence range: 166 - 35 8 10*3/?L. The re ference range was not u sed to interpret this result as normal/abnor mal. MPV (test code = 10.1 fL 9.5-12.9 02079-1) NRBC/100 WBC (test See_Comment [Automat ed message] code = 3592247135) The syste m which generated this result transmitted ref erence range: 0.0 - 10 .0 /100 WBCs. The refer ence range was not u sed to interpret this result as normal/abnor mal. NRBC x10^3 (test <0.01 See_Comment [Automated message] code = 8831623882) The syste m which generated this result transmitted ref erence range: 10*3/?L. The reference range was not used to interpr et this result as normal/abnormal . GRAN MAT (NEUT) % 53.5 % (test code = 770-8) IMM GRAN % (test 0.40 % code = 6297050040) LYMPH % (test code 35.7 % = 736-9) MONO % (test code 7.5 % = 5905-5) EOS % (test code = 2.6 % 713-8) BASO % (test code 0.3 % = 706-2) GRAN MAT 3.87 10*3/uL 1.88-7.09 x10^3(ANC) (test code = 9689370521) IMM GRAN x10^3 0.03 10*3/uL 0-0.06 (test code = 0975203865) LYMPH x10^3 (test 2.58 10*3/uL 1.32-3.29 code = 731-0) MONO x10^3 (test 0.54 10*3/uL 0.33-0.92 code = 742-7) EOS x10^3 (test 0.19 10*3/uL 0.03-0.39 code = 711-2) BASO x10^3 (test <0.03 0.01-0.07 code = 704-7) [facility] CenterXR CHEST 2 [id number] 01:30:47 No acute cardiopulmonary abnormality. Preliminary Report [...] reviewed this study and agree with the abovereport.[facility] CenterAD,CLC OR LCC ONLY - INFLUENZA A & B DIRECT [id number] 01:10:00 Test Item Value Reference Range Interpretation Comments Influenza A (test code = 55788-0) Negative Negative Influenza B (test code = 84055-8) Negative Negative Lab Interpretation (test code = Normal 24274-4) [facility] CenterPONE FLU A AND B (MOLECULAR)2019-11-09 01:21:00 Test Item Value Reference Range Interpretation Comments POCT INFLUENZA A (test neg Negative - code = 3840) Negative POCT INFLUENZA B (test neg Negative - code = 3841) Negative KANU (test code = KANU) accurate development and interpretation of all internal controls Lab Interpretation Normal (test code = 92261-1) [facility] CenterMICROALBUMIN [id number] 16:21:00 Test Item Value Reference Range Interpretation Comments CREAT U (test 230.5 mg/dL code = 8794687277) MICROALB U 23 ug/mL 0-45 (test code = 64780-6) MICROAL/CR See_Comment [Automated (test code = message] The 9318-7) system which generated this result transmitted reference range : 0 - 30 mg/g of creatinine. The reference range was not used to interpret this result as normal/abnormal . KANU (test code Normal: <30 mg/g = KANU) creatinineMicroalbuminur ia: 30 - 299 mg/g creatinineClinical albuminuria: > 300 mg/g creatinine [facility] CenterMICROALBUMIN [id number] 16:21:00 Test Item Value Reference Range Interpretation Comments CREAT U (test 230.5 mg/dL code = 9645453060) MICROALB U 23 ug/mL 0-45 (test code = 87102-5) MICROAL/CR See_Comment [Automated (test code = message] The 9318-7) system which generated this result transmitted reference range : 0 - 30 mg/g of creatinine. The reference range was not used to interpret this result as normal/abnormal . KANU (test code Normal: <30 mg/g = KANU) creatinineMicroalbuminur ia: 30 - 299 mg/g creatinineClinical albuminuria: > 300 mg/g creatinine [facility] CenterTHYROID STIMULATING [id number] 19:20:00 Test Item Value Reference Range Interpretation Comments TSH (test code = See_Comment [Automated message] 7404445815) The system [employer] generated this result transmitted ref erence range: 0.45 - 4 .70 mIU/L. The refe rence range was not u sed to interpret this result as normal/abnor mal. Lab Interpretation (test Normal code = 58063-6) [facility] CenterTHYROID STIMULATING [id number] 19:20:00 Test Item Value Reference Range Interpretation Comments TSH (test code = See_Comment [Automated message] 7382473411) The system [employer] generated this result transmitted ref erence range: 0.45 - 4 .70 mIU/L. The refe rence range was not u sed to interpret this result as normal/abnor mal. Lab Interpretation (test Normal code = 87408-8) [facility] CenterLIPID PANEL (57869)(TOTAL CHOLESTEROL, TRIGLYCERIDES, HDL)2019-10-30 18:53:00 Test Item Value Reference Range Interpretation Comments CHOL (test code = 250 mg/dL 120-200 H 3532094279) HDL (test code = 46 mg/dL >50 L 3451036305) HDLC RATIO (test code = See_Comment H [Au tomated message] 6069249028) The system [employer] generated this result transmit cesar reference range : <=4.5. The refe rence range was not u sed to interpret th is result as normal/abnormal . TRIG (test code = 162 mg/dL 30-170 2280501712) LDL CHOL (test code = 172 mg/dL See_Comment H [Auto mated message] 62162-7) The system [employer] generated this result transmit cesar reference range : <=160. The refe rence range was not u sed to interpret th is result as normal/abnormal . VLDL (test code = 32 mg/dL 5-60 2301764217) Lab Interpretation (test Abnormal code = 52012-6) [facility] CenterLIPID PANEL (59512)(TOTAL CHOLESTEROL, TRIGLYCERIDES, HDL)2019-10-30 18:53:00 Test Item Value Reference Range Interpretation Comments CHOL (test code = 250 mg/dL 120-200 H 1610906095) HDL (test code = 46 mg/dL >50 L 5357118156) HDLC RATIO (test code = See_Comment H [Au tomated message] 2573886615) The system [employer] generated this result transmit cesar reference range : <=4.5. The refe rence range was not u sed to interpret th is result as normal/abnormal . TRIG (test code = 162 mg/dL 30-170 6861829581) LDL CHOL (test code = 172 mg/dL See_Comment H [Auto mated message] 59938-4) The system [employer] generated this result transmit cesar reference range : <=160. The refe rence range was not u sed to interpret th is result as normal/abnormal . VLDL (test code = 32 mg/dL 5-60 2631900921) Lab Interpretation (test Abnormal code = 43412-2) [facility] CenterCOMP. METABOLIC PANEL (85462)2019-10-30 18:52:00 Test Item Value Reference Range Interpretation Comments NA (test code = 140 mmol/L 135-145 2215683655) K (test code = 4.8 mmol/L 3.5-5 2548980784) CL (test code = 102 mmol/L 98-108 1680525187) CO2 TOTAL (test code = 28 mmol/L 23-31 1134577853) AGAP (test code = 2-16 0369043289) BUN (test code = 28 mg/dL 7-23 H 8254233062) GLUCOSE (test code = 99 mg/dL 70-110 7230527261) CREATININE (test code = 1.56 mg/dL 0.5-1.04 H 6658482676) TOTAL BILI (test code = 0.5 mg/dL 0.1-1.2 1278833712) CALCIUM (test code = 10.3 mg/dL 8.6-10.6 4348681312) T PROTEIN (test code = 7.1 g/dL 6.3-8.2 5549043411) ALBUMIN (test code = 4.5 g/dL 3.5-5 8025142405) ALK PHOS (test code = 57 U/L 34-122 1614877948) ALTv (test code = 19 U/L 5-35 2-6) AST(SGOT) (test code = 23 U/L 13-40 1896874370) eGFR Calculation mL/min/1.73m2 (Non-) (test code = 4300962851) eGFR Calculation mL/min/1.73m2 () (test code = 0371907716) KANU (test code = KANU) Association of [...] tests). Lab Interpretation Abnormal (test code = 02490-0) [facility]. METABOLIC PANEL (89581)2019-10-30 18:52:00 Test Item Value Reference Range Interpretation Comments NA (test code = 140 mmol/L 135-145 4333389936) K (test code = 4.8 mmol/L 3.5-5 9006993715) CL (test code = 102 mmol/L 98-108 0854475005) CO2 TOTAL (test code = 28 mmol/L 23-31 4339999252) AGAP (test code = 2-16 6320706023) BUN (test code = 28 mg/dL 7-23 H 4504151994) GLUCOSE (test code = 99 mg/dL 70-110 2418994084) CREATININE (test code = 1.56 mg/dL 0.5-1.04 H 4348866813) TOTAL BILI (test code = 0.5 mg/dL 0.1-1.1 4080903634) CALCIUM (test code = 10.3 mg/dL 8.6-10.6 8320187331) T PROTEIN (test code = 7.1 g/dL 6.3-8.2 9478309168) ALBUMIN (test code = 4.5 g/dL 3.5-5 1880005225) ALK PHOS (test code = 57 U/L 34-122 1955634806) ALTv (test code = 19 U/L 5-35 1742-6) AST(SGOT) (test code = 23 U/L 13-40 4488406923) eGFR Calculation mL/min/1.73m2 (Non-) (test code = 4143338026) eGFR Calculation mL/min/1.73m2 () (test code = 7263145057) KANU (test code = KANU) Association of [...] tests). Lab Interpretation Abnormal (test code = 23267-7) [facility] CenterGLYCOSYLATED HEMOGLOBIN (A1C)2019-10-30 18:34:00 Test Item [...] Indicated Lab Interpretation Abnormal (test code = 38001-5) [facility] CenterGLYCOSYLATED HEMOGLOBIN (A1C)2019-10-30 18:34:00 Test Item [...] Indicated Lab Interpretation Abnormal (test code = 62854-3) [facility] WITH [id number] 18:08:00 Test Item Value Reference Range Interpretation Comments WBC (test code = See_Comment [Automated message] 6690-2) The system [employer] generated this result transmitted ref erence range: 4.30 - 1 1.10 10*3/?L. The re ference range was not u sed to interpret this result as normal/abnor mal. RBC (test code = See_Comment [Automated message] 269-8) The system [employer] generated this result transmitted ref erence range: [...] RDW-SD (test code 41.0 fL 39-49.9 = 99519-7) RDW-CV (test code 13.3 % 12-15.5 = 788-0) PLT (test code = See_Comment [Automated message] 777-3) The system [employer] generated this result transmitted ref erence range: 166 - 35 8 10*3/?L. The re ference range was not u sed to interpret this result as normal/abnor mal. MPV (test code = 10.5 fL 9.5-12.9 69036-6) NRBC/100 WBC (test See_Comment [Automat ed message] code = 9876819503) The syste m which generated this result transmitted ref erence range: 0.0 - 10 .0 /100 WBCs. The refer ence range was not u sed to interpret this result as normal/abnor mal. NRBC x10^3 (test <0.01 See_Comment [Automated message] code = 9250940604) The syste m which generated this result transmitted ref erence range: 10*3/?L. The reference range was not used to interpr et this result as normal/abnormal . GRAN MAT (NEUT) % 53.9 % (test code = 770-8) IMM GRAN % (test 0.50 % code = 4586095852) LYMPH % (test code 35.7 % = 736-9) MONO % (test code 6.5 % = 5905-5) EOS % (test code = 2.9 % 713-8) BASO % (test code 0.5 % = 706-2) GRAN MAT 3.58 10*3/uL 1.88-7.09 x10^3(ANC) (test code = 3869295380) IMM GRAN x10^3 0.03 10*3/uL 0-0.06 (test code = 8441854063) LYMPH x10^3 (test 2.37 10*3/uL 1.32-3.29 code = 731-0) MONO x10^3 (test 0.43 10*3/uL 0.33-0.92 code = 742-7) EOS x10^3 (test 0.19 10*3/uL 0.03-0.39 code = 711-2) BASO x10^3 (test 0.03 10*3/uL 0.01-0.07 code = 704-7) [facility] WITH [id number] 18:08:00 Test Item Value Reference Range Interpretation Comments WBC (test code = See_Comment [Automated message] 6690-2) The system [employer] generated this result transmitted ref erence range: 4.30 - 1 1.10 10*3/?L. The re ference range was not u sed to interpret this result as normal/abnor mal. RBC (test code = See_Comment [Automated message] 789-8) The system [employer] generated this result transmitted ref erence range: [...] RDW-SD (test code 41.0 fL 39-49.9 = 49417-2) RDW-CV (test code 13.3 % 12-15.5 = 788-0) PLT (test code = See_Comment [Automated message] 777-3) The system [employer] generated this result transmitted ref erence range: 166 - 35 8 10*3/?L. The re ference range was not u sed to interpret this result as normal/abnor mal. MPV (test code = 10.5 fL 9.5-12.9 22354-8) NRBC/100 WBC (test See_Comment [Automat ed message] code = 1397952175) The syste m which generated this result transmitted ref erence range: 0.0 - 10 .0 /100 WBCs. The refer ence range was not u sed to interpret this result as normal/abnor mal. NRBC x10^3 (test <0.01 See_Comment [Automated message] code = 3827408143) The syste m which generated this result transmitted ref erence range: 10*3/?L. The reference range was not used to interpr et this result as normal/abnormal . GRAN MAT (NEUT) % 53.9 % (test code = 770-8) IMM GRAN % (test 0.50 % code = 8094428043) LYMPH % (test code 35.7 % = 736-9) MONO % (test code 6.5 % = 5905-5) EOS % (test code = 2.9 % 713-8) BASO % (test code 0.5 % = 706-2) GRAN MAT 3.58 10*3/uL 1.88-7.09 x10^3(ANC) (test code = 7408164315) IMM GRAN x10^3 0.03 10*3/uL 0-0.06 (test code = 7404656419) LYMPH x10^3 (test 2.37 10*3/uL 1.32-3.29 code = 731-0) MONO x10^3 (test 0.43 10*3/uL 0.33-0.92 code = 742-7) EOS x10^3 (test 0.19 10*3/uL 0.03-0.39 code = 711-2) BASO x10^3 (test 0.03 10*3/uL 0.01-0.07 code = 704-7) [facility] 3 [id number] 01:01:19 No acute osseous abnormality. Multilevel degenerative [...] reviewed this study and agree with the abovereport.[facility] L[facility] 3 [id number] 01:01:19 No acute osseous abnormality. Multilevel degenerative [...] are noted in the gluteal soft tissues. [facility], Radiant Results Inft User - 06/02/2019 8:01 [...] reviewed this study and agree with the abovereport.[facility]"
[2023-08-21 00:32] LABS: Specific Gravity > 1.030 (1.005-1.030); Urine Bacteria <20 /HPF (<20); Urine Bilirubin NEGATIVE (Negative); Urine Blood Negative (Negative); Urine Clarity Clear (Clear); Urine Color Light-Yellow (Yellow); Urine Glucose 4+ (Over) (Negative); Urine Protein TRACE (Negative); Urine RBC <5 /HPF (None Seen); Urine Urobilinogen Normal (Normal)
--- NOTE | 2023-08-21 01:20 | ER ---
Nurse's Notes [facility] Name: Melanie Lyons Age: 82 yrs Sex: Female : 1940 Arrival Date: 08/20/2023 Time: 22:36 Bed 7 Private MD: Diagnosis: UTI/ Urinary tract infection, site not specified Presentation: 08/21 00:00 Chief complaint: Patient states: burning and urinary frequency X3 days. denies fever. lg3 gave ABX 2 times. Coronavirus screen: Client denies travel out of the [place] in the last 14 days. At this time, the client does not indicate any symptoms associated with coronavirus-19. Ebola Screen: No symptoms or risks identified at this time. Initial Sepsis Screen: Does the patient meet any 2 criteria? No. Patient's initial sepsis screen is negative. Does the patient have a suspected source of infection? No. Patient's initial sepsis screen is negative. Risk Assessment: Do you want to hurt yourself or someone else? Patient reports no desire to harm self or others. Onset of symptoms was August 17, 2023. 00:00 Method Of Arrival: Ambulatory lg3 00:00 Acuity: VIRAL 4 lg3 Triage Assessment: 00:02 General: Appears in no apparent distress. uncomfortable, Behavior is calm, cooperative. lg3 Pain: Complains of pain in pelvis. EENT: No deficits noted. No signs and/or symptoms were reported regarding the EENT system. Neuro: No deficits noted. Snyder Agitation-Sedation Scale (RASS): 0 - Alert and Calm Level of Consciousness is awake, alert, obeys commands, Oriented to person, place, time, situation. Cardiovascular: No deficits noted. Denies chest pain, shortness of breath, Capillary refill < 3 seconds Clubbing of nail beds is absent JVD is absent Patient's skin is warm and dry. Respiratory: No deficits noted. Airway is patent Respiratory effort is even, unlabored, Respiratory pattern is regular, symmetrical. GI: No deficits noted. No signs and/or symptoms were reported involving the gastrointestinal system. Abdomen is round non-distended, obese. : Reports burning with urination, inability to void, urgency, urinary frequency. Derm: No deficits noted. No signs and/or symptoms reported regarding the dermatologic system. Skin is intact, is healthy with good turgor, Skin is dry, Skin is normal, Skin temperature is warm. Musculoskeletal: No deficits noted. No signs and/or symptoms reported regarding the musculoskeletal system. Circulation, motion, and sensation intact. Range of motion: intact in all extremities. Historical: - Allergies: 00:02 Lisinopril; cough; lg3 00:02 PENICILLINS; lg3 - PMHx: 00:02 Congestive heart failure; COPD; diabetes mellitus; Hypertensive disorder; lg3 Hypothyroidism; pulmonary edema; Vertigo; - PSHx: 00:02 Appendectomy; back; heart cath; Heart Stents; lg3 - Immunization history:: Adult Immunizations up to date, Client reports having NOT received the Covid vaccine. Flu vaccine is not up to date. - Social history:: Smoking status: Patient denies any tobacco usage or history of. Patient/guardian denies using alcohol, street drugs. Screenin:54 [facility] ED Fall Risk Assessment (Adult) History of falling in the last 3 months, nw1 including since admission Yes- fall prone (multiple falls) (3 pts) Confusion or Disorientation Yes (5 pts) Intoxicated or Sedated No (0 pts) Impaired Gait No (0 pts) Mobility Assist Device Used No (0 pt) Altered Elimination No (0 pt) Score/Fall Risk Level 0 - 2 = Low Risk Oriented to surroundings, Assessed \T\ reinforced patient's understanding of fall precautions, Provided non-skid footwear, Hourly rounding (assess needs \T\ fall precautionary measures) done, Used ambulatory aids as needed (educated on \T\ assisted with). Abuse screen: Denies threats or abuse. Denies injuries from another. Nutritional screening: No deficits noted. Tuberculosis screening: No symptoms or risk factors identified. Assessment: 01:39 Reassessment: Pt brought to room, noted medication ordered and discharge placed. nw1 Medication administered. : Reports burning with urination, urgency, urinary frequency. Vital Signs: 00:00 BP 168 / 70; Pulse 92; Resp 19 S; Temp 98.3(O); Pulse Ox 96% on R/A; Weight 79.83 kg lg3 (R); Height 4 ft. 11 in. (R); 00:00 Body Mass Index 35.55 (79.83 kg, 149.86 cm) lg3 ED Course: 08/20 23:46 Patient arrived in ED. gm2 23:52 Mahesh Rojo PA is PHCP. cp 23:52 Bryan Gusman MD is Attending Physician. cp 08/21 00:02 Triage completed. lg3 00:02 Arm band placed on right wrist. lg3 00:18 Urinalysis W/Microscopic Sent. lg3 01:54 Patient has correct armband on for positive identification. Placed in gown. Bed in low nw1 position. Call light in reach. Side rails up X2. pt given hospital bed. Provided Education on: POC. Door closed. 01:54 No provider procedures requiring assistance completed. Patient did not have IV access nw1 during this emergency room visit. 01:58 Dedra Anderson, RN is Primary Nurse. nw1 Administered Medications: 01:38 Drug: Macrobid PO 100 mg PO once; administer with food Route: PO; nw1 Medication: 01:54 VIS not applicable for this client. nw1 Outcome: 01:19 Discharge ordered by MD. cp 01:54 Discharged to home ambulatory, nw1 01:54 Condition: stable 01:54 Discharge instructions given to patient, family, Instructed on discharge instructions, medication usage, Demonstrated understanding of instructions, follow-up care, medications, Prescriptions given X 2, 01:58 Patient left the ED. nw1 Signatures: Mahesh Rojo PA PA cp Tashia Maier, RN RN lg3 Lauren Loyd gm2 Dedra Anderson, RN RN nw1
--- NOTE | 2023-08-21 01:20 | EDPHYS ---
Physician Documentation [facility] Name: Melanie Lyons Age: 82 yrs Sex: Female : 1940 Arrival Date: 08/20/2023 Time: 22:36 Bed 7 Private MD: ED Physician Bryan Gusman HPI: 08/21 00:15 This 82 yrs old Female presents to ER via Ambulatory with complaints of cp POSSIBLE UTI. 00:15 The patient presents with urinary symptoms, dysuria, frequency. Onset: The cp symptoms/episode began/occurred 3 day(s) ago. Associated signs and symptoms: Pertinent negatives: fever, nausea, vaginal bleeding, vomiting, low back pain. Severity of symptoms: in the emergency department the symptoms are unchanged, despite taking antibiotic from [place]. Historical: - Allergies: 00:02 Lisinopril; cough; lg3 00:02 PENICILLINS; lg3 - PMHx: 00:02 Congestive heart failure; COPD; diabetes mellitus; Hypertensive disorder; lg3 Hypothyroidism; pulmonary edema; Vertigo; - PSHx: 00:02 Appendectomy; back; heart cath; Heart Stents; lg3 - Immunization history:: Adult Immunizations up to date, Client reports having NOT received the Covid vaccine. Flu vaccine is not up to date. - Social history:: Smoking status: Patient denies any tobacco usage or history of. Patient/guardian denies using alcohol, street drugs. ROS: 00:20 Constitutional: Negative for body aches, chills, fever, poor PO intake, cp 00:20 Respiratory: Negative for cough, wheezing, cp 00:20 Abdomen/GI: Positive for abdominal pain, of the suprapubic area, Negative for vomiting, diarrhea, constipation, 00:20 Back: Negative for pain at rest, pain with movement, 00:20 : Positive for urinary symptoms, Negative for vaginal bleeding, 00:20 Neuro: Negative for altered mental status, weakness, 00:20 All other systems are negative, Exam: 00:25 Head/Face: Normocephalic, atraumatic. cp 00:25 Constitutional: The patient appears in no acute distress, alert, awake, non-diaphoretic, non-toxic, well developed, well nourished, 00:25 Eyes: Periorbital structures: appear normal, Conjunctiva: normal, no exudate, no injection, Sclera: no appreciated abnormality, Lids and lashes: appear normal, bilaterally, 00:25 ENT: External ear(s): are unremarkable, Nose: is normal, Mouth: Lips: moist, Oral mucosa: moist, Posterior pharynx: is normal, airway is patent, 00:25 Chest/axilla: Inspection: normal, 00:25 Cardiovascular: Rate: normal, 00:25 Respiratory: the patient does not display signs of respiratory distress, Respirations: normal, no use of accessory muscles, no retractions, 00:25 Abdomen/GI: Inspection: abdomen appears normal, Palpation: soft, in all quadrants, mild abdominal tenderness, in the suprapubic area, 00:25 Back: CVA tenderness, is absent, 00:25 Neuro: Orientation: to person, place \T\ time. Mentation: is normal, Motor: moves all fours, strength is normal, Vital Signs: 00:00 BP 168 / 70; Pulse 92; Resp 19 S; Temp 98.3(O); Pulse Ox 96% on R/A; Weight 79.83 kg lg3 (R); Height 4 ft. 11 in. (R); 00:00 Body Mass Index 35.55 (79.83 kg, 149.86 cm) lg3 MDM: 00:06 Patient medically screened. cp 01:00 Differential diagnosis: urinary tract infection, sepsis, kidney stone. cp 01:18 Data reviewed: vital signs, nurses notes, lab test result(s), and as a result, I will cp discharge patient. 01:18 Care significantly affected by the following chronic conditions: Diabetes, cp Hypertension, Chronic Obstructive Pulmonary Disease. ED course: VSS. Patient appears non-toxic. Will discharge to home for continued monitoring. 08/21 00:08 Order name: Urinalysis W/Microscopic; Complete Time: 00:43 cp Administered Medications: 01:38 Drug: Macrobid PO 100 mg PO once; administer with food Route: PO; nw1 Disposition Summary: 08/21/23 01:19 Discharge Ordered Notes: Location: Home cp Problem: new cp Symptoms: have improved cp Condition: Stable cp Diagnosis - UTI/ Urinary tract infection, site not specified cp Followup: cp - With: Private Physician - When: 2 - 3 days - Reason: Worsening of condition Discharge Instructions: - Discharge Summary Sheet cp - Urinary Tract Infection, Adult cp Forms: - Medication Reconciliation Form cp - Thank You Letter cp - Antibiotic Education cp - Prescription Opioid Use cp - Patient Portal Instructions cp - Leadership Thank You Letter cp Prescriptions: - Pyridium 200 mg Oral tablet - take 1 tablet ORAL route every 8 hours for 2 days; 6 tablet; Refills: 0, cp Product Selection Permitted - Macrobid 100 mg Oral Capsule - take 1 capsule ORAL route every 12 hours for 7 days; 14 capsule; Refills: 0, cp Product Selection Permitted Addendum: 08/22/2023 03:08 Co-signature as Attending Physician, Bryan Gusman MD I agree with the assessment s p4 and plan of care. I reviewed the patient's care provided by the Advanced Practice Provider and agree with the diagnosis and treatment plan. Signatures: Dispatcher [employer] EDMS Mahesh Rojo PA PA cp Tashia Maier, MIKI RN lg3 Bryan Gusman MD MD sp4 Dedra Anderson RN RN nw1 Corrections: (The following items were deleted from the chart) 08/21 14:08/20 00:15 The patient presents with urinary symptoms, dysuria, frequency, cp cp 08/21 14:17 12 00:15 Onset: The symptoms/episode began/occurred 3 day(s) ago, cp cp 08/21 14:17 08/20 00:15 Associated signs and symptoms: Pertinent negatives: fever, nausea, vaginal cp bleeding, vomiting, low back pain, cp 08/21 14:17 12 00:15 Severity of symptoms: in the emergency department the symptoms are cp unchanged, despite taking antibiotic from [place], cp 08/21 14:18 08/20 00:25 Constitutional: The patient appears in no acute distress, alert, awake, cp non-diaphoretic, non-toxic, well developed, well nourished, cp 08/21 14:18 08/20 00:25 Head/Face: Normocephalic, atraumatic. cp cp 08/21 14:18 08/20 00:25 Eyes: Periorbital structures: appear normal, Conjunctiva: normal, no cp exudate, no injection, Sclera: no appreciated abnormality, Lids and lashes: appear normal, bilaterally, cp 08/21 14:18 08/20 00:25 ENT: External ear(s): are unremarkable, Nose: is normal, Mouth: Lips: cp moist, Oral mucosa: moist, Posterior pharynx: is normal, airway is patent, cp 08/21 14:08/20 00:25 Chest/axilla: Inspection: normal, cp cp 08/21 14:08/20 00:25 Cardiovascular: Rate: normal, cp cp 08/21 00:25 Respiratory: the patient does not display signs of respiratory distress, cp Respirations: normal, no use of accessory muscles, no retractions, cp 08/21 00:25 Abdomen/GI: Inspection: abdomen appears normal, Palpation: soft, in all cp quadrants, mild abdominal tenderness, in the suprapubic area, cp 08/21 14:08/20 00:25 Back: CVA tenderness, is absent, cp cp 08/21 00:25 Neuro: Orientation: to person, place \T\ time. Mentation: is normal, Motor: cp moves all fours, strength is normal, cp
[2023-08-21] MEDS ORDERED: NITROFURAN MACRO 100 MG CAP PO ONE (01:43)
[2023-08-21 02:03] VITALS: BP 168/70; TEMP 98.3; O2SAT 96
== END 2023-08-21 01:58 | disposition home or self-care (01) ==
LOC: ER 22:36
DX: N39.0 Urinary tract infection, site not specified (principal); I10 Essential (primary) hypertension; Z88.0 Allergy status to penicillin; Z88.8 Allergy status to other drugs, medicaments and biological substances; Z28.310 Unvaccinated for COVID-19; Z95.818 Presence of other cardiac implants and grafts
CPT/HCPCS: 81001; 99283

== ENCOUNTER 2024-05-24 11:00 | Emergency (ER) | payer OTHER ==
[2024-05-24] MEDS ORDERED: ONDANSETRON 4 MG/2 ML VIAL ONE (11:54)
[2024-05-24] MEDS ORDERED: MORPHINE 4 MG/ML SYR ONE (11:54)
[2024-05-24] MEDS ORDERED: NA CHLORIDE 0.9% 500 ML ONE (11:54)
[2024-05-24 13:01] LABS: Absolute Eosinophils 0.1 K/uL (0-0.5); Absolute Lymphocytes (CBC) 2.6 K/uL (0.7-4.9); Absolute Neutrophil 8.1 K/uL (1.8-8.0); Basophils % 0.4 % (0-1.3); Eosinophils % 1.2 % (0-4.4); Hematocrit 42.6 % (36.0-45.0); Hemoglobin 13.7 g/dL (12.0-15.0); Lymphocytes % 21.9 % (15.3-44.8); MCH 26.7 pg (27.0-35.0); MCHC 32.2 g/dL (32.0-36.0); MCV 83.1 fL (80-100); MPV 8.6 fL (7.6-11.3); Monocytes % 8.5 % (3.3-12.3); Platelets 243 thou/uL (152-406); RBC Red Blood Cell Count 5.12 M/uL (3.86-4.86); Red Cell Distribution Width 14.5 % (12.1-15.2)
[2024-05-24 13:09] LABS: Specific Gravity > 1.030 (1.005-1.030); Sqamous Epithelial <5 /HPF (None Seen); Urine Bacteria <20 /HPF (<20); Urine Bilirubin NEGATIVE (Negative); Urine Blood Negative (Negative); Urine Clarity Clear (Clear); Urine Color Light-Yellow (Yellow); Urine Culture Reflex Order NOT NEEDED; Urine Glucose 4+ (Over) (Negative); Urine Ketones NEGATIVE (Negative); Urine Microscopic Reflex YN ORDER UMIC; Urine Mucus Slight /HPF (None Seen); Urine Nitrite NEGATIVE (Negative); Urine Protein TRACE (Negative); Urine RBC <5 /HPF (None Seen); Urine Urobilinogen Normal (Normal); Urine WBC <5 /HPF (<5)
[2024-05-24 13:13] LABS: ALT/SGPT 24 U/L (13-56); Albumin 3.2 g/dL (3.4-5.0); Albumin/Globulin Ratio 0.8 (1.1-1.8); Alkaline Phosphatase 72 U/L (45-117); Anion Gap 10.9 mEq/L (5.0-15.0); BUN Blood Urea Nitrogen 23 mg/dL (7-18); Bicarbonate 24 mEq/L (21-32); Bilirubin Total 0.5 mg/dL (0.2-1.0); Globulin 4.1 g/dL (2.3-3.5); Glomerular Filtration Rate 47 ml/min (=/>90); Glucose Level 224 mg/dL (74-106); Lipase 153 U/L (13-75); Potassium 3.9 mEq/L (3.5-5.1); Protein, Total 7.3 g/dL (6.4-8.2); Sodium Level 134 mEq/L (136-145)
[2024-05-24 13:14] LABS: AST/SGOT < 10 U/L (15-37)
--- NOTE | 2024-05-24 15:26 | RAD REPORT ---
EXAM DESCRIPTION: CT - Abdomen Pelvis Wo Contrast - 05/24/2024 2:44 pm CLINICAL HISTORY: ABD PAIN COMPARISON: Abdomen Pelvis Wo Contrast dated 07/20/2022; Abdomen Pelvis W Contrast dated TECHNIQUE: Thin cut axial CT imaging of the abdomen and pelvis was performed without IV contrast. Mu ltiplanar reformats were generated and reviewed. All CT scans are performed using dose optimization technique as appropriate and may include automated exposure control or mA/KV adjustment according to patient size. FINDINGS: No suspicious findings in the lung bases. The liver, spleen, adrenal glands, and pancreas show no suspicious findings. Gallbladder and biliary tree are also without suspicious finding. Symmetric renal contour, without suspicious parenchymal findings within limits of noncontrast techniq ue. No evidence of radiopaque calculi or hydroureteronephrosis. Moderate sliding hiatal hernia. No dilated bowel loops. Distal colonic diverticulosis. Focal inflamma tory changes along the distal sigmoid colon, centered on a lateral wall fibroid, with fat stranding e xtending to the left pelvic sidewall. No free air, free fluid or fluid collections. No hernia, mass o r bulky lymphadenopathy. Calcified fibroid near the uterine fundus. The urinary bladder is without si gnificant finding. No suspicious bony findings. IMPRESSION: Findings of acute distal sigmoid diverticulitis, without evidence of complications. Other incidental findings as above.
[2024-05-24] MEDS ORDERED: KETOROLAC 30 MG/ML INJ ONE (16:06)
--- NOTE | 2024-05-24 16:15 | ER ---
Nurse's Notes [facility] Name: Melanie Lyons Age: 83 yrs Sex: Female : 1940 Arrival Date: 05/24/2024 Time: 11:00 Bed 7 Private MD: Diagnosis: Diverticulitis of large intestine without perforation or abscess without bleeding Presentation: 05/24 11:19 Chief complaint: Patient states: Lower abdominal pain for 3 days. Coronavirus screen: ll1 Client denies travel out of the [place] in the last 14 days. At this time, the client does not indicate any symptoms associated with coronavirus-19. Ebola Screen: Patient denies travel to an Ebola-affected area in the 21 days before illness onset. Initial Sepsis Screen: Does the patient meet any 2 criteria? No. Patient's initial sepsis screen is negative. Does the patient have a suspected source of infection? No. Patient's initial sepsis screen is negative. Risk Assessment: Do you want to hurt yourself or someone else? Patient reports no desire to harm self or others. Onset of symptoms was May 22, 2024. 11:19 Method Of Arrival: Ambulatory ll1 11:19 Acuity: VIRAL 3 ll1 Historical: - Allergies: 11:21 Lisinopril; cough; ll1 11:21 PENICILLINS; ll1 - PMHx: 11:21 Congestive heart failure; COPD; diabetes mellitus; Hypertensive disorder; ll1 Hypothyroidism; pulmonary edema; Vertigo; - PSHx: 11:21 Appendectomy; back; heart cath; Heart Stents; ll1 - Immunization history:: Adult Immunizations up to date. - Infectious Disease History:: Denies. - Social history:: Smoking status: Patient denies any tobacco usage or history of. Screenin:22 [facility] ED Fall Risk Assessment (Adult) History of falling in the last 3 months, ph including since admission No falls in past 3 months (0 pts) Confusion or Disorientation No (0 pts) Intoxicated or Sedated No (0 pts) Impaired Gait No (0 pts) Mobility Assist Device Used No (0 pt) Altered Elimination No (0 pt) Score/Fall Risk Level 0 - 2 = Low Risk Oriented to surroundings, Maintained a safe environment, Hourly rounding (assess needs \T\ fall precautionary measures) done. Abuse screen: Denies threats or abuse. Denies injuries from another. Nutritional screening: On. Tuberculosis screening: No symptoms or risk factors identified. Assessment: 13:23 General: Appears in no apparent distress. Behavior is calm, cooperative, Denies fever. ph Pain: Complains of pain in right lower quadrant and left lower quadrant. Neuro: Level of Consciousness is awake, alert, obeys commands, Oriented to person, place, time, situation. Cardiovascular: Capillary refill < 3 seconds in bilateral fingers Patient's skin is warm and dry. Respiratory: Airway is patent Respiratory effort is even, unlabored. GI: Bowel sounds present X 4 quads. Abd is soft X 4 quads Reports lower abdominal pain, Patient currently denies constipation, diarrhea, nausea, vomiting. : No signs and/or symptoms were reported regarding the genitourinary system. Derm: Skin is pink, warm \T\ dry. Vital Signs: 11:19 BP 157 / 62; Pulse 97; Resp 18; Pulse Ox 96% ; Weight 79.38 kg; Height 4 ft. 11 in. ; ll1 Pain 8/10; 13:21 BP 136 / 56; Pulse 73; Resp 18; Pulse Ox 100% on R/A; ph 15:00 BP 135 / 76; Pulse 75; Resp 18; Pulse Ox 99% on R/A; ph 17:03 BP 134 / 60; Pulse 77; Resp 18; Pulse Ox 100% ; ar6 11:19 Body Mass Index 35.35 (79.38 kg, 149.86 cm) ll1 11:19 Pain Scale: Adult ll1 ED Course: 11:05 Patient arrived in ED. sj2 11:13 Mahesh Rojo PA is PHCP. cp 11:13 Mahesh Jesus MD is Attending Physician. cp 11:20 Triage completed. ll1 11:21 Arm band placed on. ll1 11:50 Zulma Solis, MIKI is Primary Nurse. ph 13:02 Initial lab(s) drawn, by me, sent to lab. Inserted saline lock: 22 gauge in right ph forearm, using aseptic technique. Blood collected. Flushed with 10 mL NS. 13:03 Urine collected: clean catch specimen. ph 13:22 Patient has correct armband on for positive identification. Bed in low position. Call light in reach. Side rails up X 1. Pulse ox on. NIBP on. 14:29 Inserted saline lock: 22 gauge in left antecubital area, using aseptic technique. ar6 Flushed with 10 mL NS. 14:45 Abdomen In Process Unspecified. EDMS 17:02 No provider procedures requiring assistance completed. IV discontinued, intact, ar6 bleeding controlled, No redness/swelling at site. Pressure dressing applied. 17:03 Provided Education on:. ar6 Administered Medications: 13:10 Drug: NS 0.9% IV 500 ml IV at 100 ml/hr continuous Route: IV; Rate: 100 ml/hr; Site: ph right forearm; 15:45 Follow up: Response: No adverse reaction; IV Status: Completed infusion; IV Intake: ph 500ml 17:01 Follow up: Response: No adverse reaction; IV Status: Completed infusion; IV Intake: ar6 500ml 17:04 Follow up: IV Status: Completed infusion; IV Intake: 500ml ar6 13:11 Drug: Ondansetron IVP 4 mg IVP once; over 2 minutes Route: IVP; Site: right forearm; ph 15:45 Follow up: Response: No adverse reaction ph 17:01 Follow up: Response: No adverse reaction ar6 13:11 Drug: morphine IVP or IV 4 mg IVP once over 4 mins Route: IVP; Infused Over: 4 mins; ph Site: right forearm; 13:35 Follow up: Response: No adverse reaction; RASS: Alert and Calm (0) ph 17:01 Follow up: Response: No adverse reaction ar6 16:09 Drug: Ketorolac IVP 15 mg IVP once Route: IVP; Site: right forearm; ph 17:02 Follow up: Response: No adverse reaction ar6 16:40 Drug: metroNIDAZOLE PO 500 mg PO once Route: PO; ar6 17:02 Follow up: Response: No adverse reaction ar6 16:40 Drug: Ciprofloxacin PO 500 mg PO once Route: PO; ar6 17:02 Follow up: Response: No adverse reaction ar6 16:40 Drug: Rocephin IV 1 grams IV at calculated rate once; Given slow IV push per pharmacy ar6 instructions Route: IV; Rate: calculated rate; Site: right forearm; 17:00 Follow up: Response: No adverse reaction; IV Status: Completed infusion ph 17:02 Follow up: Response: No adverse reaction ar6 Medication: 13:22 VIS not applicable for this client. ph Intake: 15:45 IV: 500ml; Total: 500ml. ph 17:01 IV: 500ml; Total: 1000ml. ar6 17:04 IV: 500ml; Total: 1500ml. ar6 Outcome: 16:15 Discharge ordered by MD. cp 17:02 Discharged to home ar6 17:02 Discharged to home via wheelchair, with family, 17:02 Condition: good 17:02 Discharge instructions given to patient, family, Instructed on discharge instructions, follow up and referral plans. medication usage, Demonstrated understanding of instructions, follow-up care, medications, Prescriptions given X 4, 17:04 Patient left the ED. ar6 Signatures: Dispatcher [employer] EDZulma Alfaro RN RN ph Mahesh Rojo PA PA cp Lewis, Lynsay, RN RN ll1 Shirlene Mcgregor RN RN ar6 Eula Dill 2
--- NOTE | 2024-05-24 16:15 | EDPHYS ---
Physician Documentation [facility] Name: Melanie Lyons Age: 83 yrs Sex: Female : 1940 Arrival Date: 05/24/2024 Time: 11:00 Bed 7 Private MD: STEPHEN Physician Mahesh Jesus HPI: 05/24 11:25 This 83 yrs old Female presents to ER via Ambulatory with complaints of cp Abdominal Pain. 11:25 The patient presents with abdominal pain in the lower abdomen. cp 11:25 Onset: The symptoms/episode began/occurred 3 day(s) ago. Associated signs and symptoms: cp Pertinent negatives: blood in stools, chest pain, constipation, diarrhea, fever, headache, vomiting. 11:25 The symptoms are described as constant. Modifying factors: the symptoms are aggravated cp by movement. Historical: - Allergies: 11:21 Lisinopril; cough; ll1 11:21 PENICILLINS; ll1 - PMHx: 11:21 Congestive heart failure; COPD; diabetes mellitus; Hypertensive disorder; ll1 Hypothyroidism; pulmonary edema; Vertigo; - PSHx: 11:21 Appendectomy; back; heart cath; Heart Stents; ll1 - Immunization history:: Adult Immunizations up to date. - Infectious Disease History:: Denies. - Social history:: Smoking status: Patient denies any tobacco usage or history of. ROS: 11:30 Constitutional: Negative for body aches, chills, fever, poor PO intake, cp 11:30 Eyes: Negative for injury, pain, redness, and discharge, cp 11:30 ENT: Negative for drainage from ear(s), ear pain, sore throat, difficulty swallowing, difficulty handling secretions, 11:30 Cardiovascular: Negative for chest pain, edema, palpitations, 11:30 Respiratory: Negative for cough, shortness of breath, wheezing, 11:30 Abdomen/GI: Positive for abdominal pain, nausea, Negative for vomiting, diarrhea, constipation, anorexia, black/tarry stool, rectal bleeding, 11:30 Back: Negative for pain at rest, pain with movement, 11:30 : Negative for urinary symptoms, 11:30 Neuro: Negative for altered mental status, dizziness, headache, numbness, syncope, weakness, 11:30 All other systems are negative, Exam: 11:33 Constitutional: The patient appears in no acute distress, alert, awake, non-toxic, well cp developed, well nourished, uncomfortable, 11:33 Head/Face: Normocephalic, atraumatic. cp 11:33 Eyes: Periorbital structures: appear normal, Conjunctiva: normal, no exudate, no injection, Sclera: no appreciated abnormality, Lids and lashes: appear normal, bilaterally, 11:33 ENT: External ear(s): are unremarkable, Nose: is normal, Mouth: Lips: moist, Oral mucosa: pink and intact, moist, Posterior pharynx: Airway: no evidence of obstruction, patent, 11:33 Chest/axilla: Inspection: normal, 11:33 Cardiovascular: Rate: normal, Rhythm: regular, 11:33 Respiratory: the patient does not display signs of respiratory distress, Respirations: normal, no use of accessory muscles, no retractions, labored breathing, is not present, Breath sounds: are clear throughout, no decreased breath sounds, no stridor, no wheezing, 11:33 Abdomen/GI: Inspection: abdomen appears normal, Bowel sounds: active, all quadrants, Palpation: soft, in all quadrants, moderate abdominal tenderness, in the left lower quadrant, rebound tenderness, is not appreciated, involuntary guarding, is not appreciated, 11:33 Back: CVA tenderness, is absent, 11:33 Neuro: Orientation: to person, place \T\ time. Mentation: is normal, Vital Signs: 11:19 BP 157 / 62; Pulse 97; Resp 18; Pulse Ox 96% ; Weight 79.38 kg; Height 4 ft. 11 in. ; ll1 Pain 8/10; 13:21 BP 136 / 56; Pulse 73; Resp 18; Pulse Ox 100% on R/A; ph 15:00 BP 135 / 76; Pulse 75; Resp 18; Pulse Ox 99% on R/A; ph 17:03 BP 134 / 60; Pulse 77; Resp 18; Pulse Ox 100% ; ar6 11:19 Body Mass Index 35.35 (79.38 kg, 149.86 cm) ll1 11:19 Pain Scale: Adult ll1 MDM: 11:14 Patient medically screened. cp 16:14 Data reviewed: vital signs, nurses notes, lab test result(s), radiologic studies, CT cp scan. 16:14 Differential diagnosis: appendicitis, diverticulitis, Pyelonephritis, Ureterolithiasis, cp urinary tract infection. I considered the following discharge prescriptions or medication management in the emergency department Medications were administered in the Emergency Department. See MAR. Counseling: I had a detailed discussion with the patient and/or guardian regarding the historical points, exam findings, and any diagnostic results supporting the discharge/admit diagnosis, lab results, radiology results, discussed admission for continued treatment but patient requesting to try outpatient treatment with oral antibioticss. Response to treatment: the patient's symptoms have markedly improved after treatment, and as a result, I will discharge patient. 05/24 11:23 Order name: CBC with Diff; Complete Time: 13:20 cp 05/24 15:37 Interpretation: Normal except: WBC 12.00; RBC 5.12; MCH 26.7; NEUT A 8.1. cp 05/24 11:23 Order name: CMP; Complete Time: 13:20 cp 05/24 11:23 Order name: Lipase; Complete Time: 13:20 cp 05/24 11:23 Order name: Urinalysis w/ reflexes; Complete Time: 13:20 cp 05/24 11:23 Order name: Lactate w/ 2H reflex if indic.; Complete Time: 13:20 cp 05/24 14:36 Order name: Abdomen ; Complete Time: 15:37 EDMS 05/24 11:23 Order name: IV Saline Lock; Complete Time: 13:05 cp 05/24 11:23 Order name: Labs collected and sent; Complete Time: 13:05 cp 05/24 15:44 Order name: PO challenge; Complete Time: 15:44 cp Administered Medications: 13:10 Drug: NS 0.9% IV 500 ml IV at 100 ml/hr continuous Route: IV; Rate: 100 ml/hr; Site: ph right forearm; 15:45 Follow up: Response: No adverse reaction; IV Status: Completed infusion; IV Intake: ph 500ml 17:01 Follow up: Response: No adverse reaction; IV Status: Completed infusion; IV Intake: ar6 500ml 17:04 Follow up: IV Status: Completed infusion; IV Intake: 500ml ar6 13:11 Drug: Ondansetron IVP 4 mg IVP once; over 2 minutes Route: IVP; Site: right forearm; ph 15:45 Follow up: Response: No adverse reaction ph 17:01 Follow up: Response: No adverse reaction ar6 13:11 Drug: morphine IVP or IV 4 mg IVP once over 4 mins Route: IVP; Infused Over: 4 mins; ph Site: right forearm; 13:35 Follow up: Response: No adverse reaction; RASS: Alert and Calm (0) ph 17:01 Follow up: Response: No adverse reaction ar6 16:09 Drug: Ketorolac IVP 15 mg IVP once Route: IVP; Site: right forearm; ph 17:02 Follow up: Response: No adverse reaction ar6 16:40 Drug: metroNIDAZOLE PO 500 mg PO once Route: PO; ar6 17:02 Follow up: Response: No adverse reaction ar6 16:40 Drug: Ciprofloxacin PO 500 mg PO once Route: PO; ar6 17:02 Follow up: Response: No adverse reaction ar6 16:40 Drug: Rocephin IV 1 grams IV at calculated rate once; Given slow IV push per pharmacy ar6 instructions Route: IV; Rate: calculated rate; Site: right forearm; 17:00 Follow up: Response: No adverse reaction; IV Status: Completed infusion ph 17:02 Follow up: Response: No adverse reaction ar6 Disposition Summary: 05/24/24 16:15 Discharge Ordered Notes: Location: Home cp Condition: Stable cp Diagnosis - Diverticulitis of large intestine without perforation or abscess without bleeding cp Followup: cp - With: Private Physician - When: 2 - 3 days - Reason: Recheck today's complaints Discharge Instructions: - Discharge Summary Sheet cp - High-Fiber Eating Plan cp - Diverticulitis cp Forms: - Medication Reconciliation Form cp - Antibiotic Education cp - Prescription Opioid Use cp - Patient Portal Instructions cp - Leadership Thank You Letter cp Prescriptions: - Zofran 4 mg Oral Tablet - take 1 tablet ORAL route every 12 hours As needed; 20 tablet; Refills: 0, cp Product Selection Permitted - Metronidazole 500 mg Oral Tablet - take 1 tablet ORAL route every 8 hours; 30 tablet; Refills: 0, Product cp Selection Permitted - cefpodoxime 200 mg Oral tablet - take 1 tablet ORAL route every 12 hours with food; 20 tablet; Refills: 0, cp Product Selection Permitted - dicyclomine 20 mg Oral tablet - take 1 tablet ORAL route 4 times per day; 30 tablet; Refills: 0, Product cp Selection Permitted Addendum: 05/31/2024 15:39 Co-signature as Attending Physician, Mahesh Jesus MD I agree with the assessment and c bliss plan of care. Signatures: Dispatcher [employer] EDMS Mahesh Jesus MD MD cha Hall, Patricia, RN RN ph Mahesh Rjoo PA PA cp Lewis, Lynsay, RN RN ll1 Shirlene Mcgregor RN RN ar6 Corrections: (The following items were deleted from the chart) 05/24 11:24 11:24 CBC+H.LAB.BRZ ordered. EDMS EDMS 11:24 11:24 COMPREHENSIVE METABOLIC PANEL+C.LAB.BRZ ordered. EDMS EDMS 11:24 11:24 LIPASE+C.LAB.BRZ ordered. EDMS EDMS 11:24 11:24 Urinalysis+U.LAB.BRZ ordered. EDMS EDMS 11:24 11:24 LACTATE+C.LAB.BRZ ordered. EDMS EDMS 14:36 13:23 Abdomen Pelvis W Con+CT.RAD.BRZ ordered. EDMS EDMS 05/25 09:21 05/24 11:25 The patient presents with abdominal pain cp cp
[2024-05-24] MEDS ORDERED: CIPROFLOXACIN HCL 500 MG TAB ONE (16:51)
[2024-05-24] MEDS ORDERED: metroNIDAZOLE 500 MG TABLET ONE (16:51)
[2024-05-24] MEDS ORDERED: CEFTRIAXONE 1000 MG/VIAL ONE (16:51)
[2024-05-24 17:45] VITALS: O2SAT 100
[2024-05-24 17:46] VITALS: BP 134/60
== END 2024-05-24 17:04 | disposition home or self-care (01) ==
LOC: ER 11:00
DX: K57.32 Diverticulitis of large intestine without perforation or abscess without bleeding (principal); E11.9 Type 2 diabetes mellitus without complications; I10 Essential (primary) hypertension; I50.9 Heart failure, unspecified; Z95.818 Presence of other cardiac implants and grafts
CPT/HCPCS: 96365; 96361; 85025; 81001; 36415; 83605; 83690; 80053; 74176; 96375; 99284; J2405; J7040; J0696

== ENCOUNTER 2024-09-14 15:33 | Emergency (ER) | payer OTHER ==
[2024-09-14] MEDS ORDERED: LEVALBUTEROL 1.25 MG/3 ML NEB ONE (16:22)
[2024-09-14] MEDS ORDERED: METHYLPREDNISOLONE 125 MG INJ ONE (16:22)
[2024-09-14] MEDS ORDERED: DIPHENHYDRAMINE 50 MG/ML VIAL ONE ×2 (16:23→18:54)
[2024-09-14] MEDS ORDERED: hydrOXYzine HCL 25 MG TAB ONE (16:23)
[2024-09-14] MEDS ORDERED: FAMOTIDINE 20 MG/2 ML VIAL IV ONE (18:56)
--- NOTE | 2024-09-14 19:14 | ER ---
Nurse's Notes [facility] Name: Melanie Lyons Age: 84 yrs Sex: Female : 1940 Arrival Date: 09/14/2024 Time: 15:33 Bed 16 Private MD: Diagnosis: Acute allergic reaction Presentation: 09/14 15:55 Chief complaint: Patient's son or daughter states: Had n/v/d, stomach pains with tm6 ozempic, dosage lowered on Sunday. N/v/d continued, given promethazine on Sunday. started with red rash and itching on hands, arms, and groin. Coronavirus screen: Client denies travel out of the [place] in the last 14 days. Ebola Screen: Patient negative for fever greater than or equal to 101.5 degrees Fahrenheit, and additional compatible Ebola Virus Disease symptoms Patient denies exposure to infectious person. Patient denies travel to an Ebola-affected area in the 21 days before illness onset. No symptoms or risks identified at this time. Onset: The symptoms/episode began/occurred 3 day(s) ago. Anaphylaxis evaluation, no signs or symptoms of anaphylaxis were noted. Initial Sepsis Screen: Does the patient meet any 2 criteria? No. Patient's initial sepsis screen is negative. Does the patient have a suspected source of infection? No. Patient's initial sepsis screen is negative. Risk Assessment: Do you want to hurt yourself or someone else? Patient reports no desire to harm self or others. Onset of symptoms was September 11, 2024. 15:55 Method Of Arrival: Wheelchair tm6 15:55 Acuity: VIRAL 3 tm6 Triage Assessment: 15:57 General: Appears in no apparent distress. Behavior is calm, cooperative. Pain: Denies tm6 pain. EENT: No signs and/or symptoms were reported regarding the EENT system. Neuro: Level of Consciousness is awake, alert, obeys commands, Oriented to person, place, time, situation. Cardiovascular: Patient's skin is warm and dry. Respiratory: Airway is patent Respiratory effort is even, unlabored, Respiratory pattern is regular, symmetrical. GI: Abdomen is round Reports diarrhea, nausea, vomiting. : No signs and/or symptoms were reported regarding the genitourinary system. Derm: No signs and/or symptoms reported regarding the dermatologic system. Derm: Reports itching. Musculoskeletal: No signs and/or symptoms reported regarding the musculoskeletal system. Historical: - Allergies: 15:57 Lisinopril; cough; tm6 15:57 PENICILLINS; tm6 - PMHx: 15:57 Congestive heart failure; COPD; diabetes mellitus; Hypertensive disorder; tm6 Hypothyroidism; pulmonary edema; Vertigo; - PSHx: 15:57 Appendectomy; back; heart cath; Heart Stents; tm6 - Immunization history:: Flu vaccine status is unknown. - Infectious Disease History:: Denies. - Social history:: Smoking status: Patient denies any tobacco usage or history of. - Family history:: not pertinent. - Hospitalizations: : No recent hospitalization is reported. Screenin:[facility] ED Fall Risk Assessment (Adult) History of falling in the last 3 months, hb including since admission No falls in past 3 months (0 pts) Confusion or Disorientation No (0 pts) Intoxicated or Sedated No (0 pts) Impaired Gait No (0 pts) Mobility Assist Device Used No (0 pt) Altered Elimination No (0 pt) Score/Fall Risk Level 0 - 2 = Low Risk Oriented to surroundings, Maintained a safe environment, Educated pt \T\ family on fall prevention, incl call for assistance when getting out of bed. Abuse screen: Denies threats or abuse. Denies injuries from another. Nutritional screening: No deficits noted. Tuberculosis screening: No symptoms or risk factors identified. Assessment: 16:15 General: Appears in no apparent distress. uncomfortable, Behavior is cooperative, hb restless. Neuro: Level of Consciousness is awake, alert, obeys commands, Oriented to person, place, time, situation. Cardiovascular: Patient's skin is warm and dry. Respiratory: Reports shortness of breath Respiratory effort is even, unlabored, Respiratory pattern is regular, symmetrical. GI: No signs and/or symptoms were reported involving the gastrointestinal system. : No signs and/or symptoms were reported regarding the genitourinary system. EENT: No signs and/or symptoms were reported regarding the EENT system. Derm: Skin is pink, warm \T\ dry. Rash noted that is diffuse, itchy. Musculoskeletal: No signs and/or symptoms reported regarding the musculoskeletal system. 18:25 Reassessment: Patient appears in no apparent distress at this time. Patient and/or hb family updated on plan of care and expected duration. Pain level reassessed. Patient is alert, oriented x 3, equal unlabored respirations, skin warm/dry/pink. 19:10 Reassessment: Patient and/or family updated on plan of care and expected duration. Pain rg5 level reassessed. Patient is alert, oriented x 3, equal unlabored respirations, skin warm/dry/pink. Neuro: Level of Consciousness is awake, alert, obeys commands. Cardiovascular: Denies chest pain, Patient's skin is warm and dry. Respiratory: Airway is patent Trachea midline Respiratory effort is even, unlabored, Respiratory pattern is regular, symmetrical, Breath sounds are clear. Vital Signs: 15:55 BP 157 / 73; Pulse 81; Resp 20; Temp 98.2(O); Pulse Ox 98% on R/A; MAP 98 mmHg; Pain tm6 0/10; 18:00 BP 146 / 76; Pulse 82; Resp 15; Pulse Ox 99% on R/A; hb 19:10 BP 135 / 77; Pulse 79; Resp 18; Pulse Ox 99% on R/A; Pain 0/10; rg5 15:55 Pain Scale: Adult tm6 19:10 Pain Scale: Adult rg5 ED Course: 15:35 Patient arrived in ED. im 15:47 Benson Jordan MD is Attending Physician. rn 15:57 Triage completed. tm6 15:57 Arm band placed on right wrist. tm6 16:30 Inserted saline lock: 22 gauge in left antecubital area, using aseptic technique. em1 Flushed with 10 mL NS. 17:00 Patient has correct armband on for positive identification. Provided Education on: use hb of call light. 17:00 No provider procedures requiring assistance completed. hb 19:14 Jame Watts, MIKI is Primary Nurse. rg5 19:53 IV discontinued, bleeding controlled, No redness/swelling at site. Pressure dressing rg5 applied. Administered Medications: 16:36 Drug: MethylPrednisoLONE IVP 125 mg IVP once Route: IVP; Site: left antecubital; hb 19:02 Follow up: Response: No adverse reaction hb 16:36 Drug: diphenhydrAMINE IVP 12.5 mg IVP once Route: IVP; Site: left antecubital; hb 19:02 Follow up: Response: No adverse reaction hb 16:36 Drug: hydrOXYzine PO 25 mg PO once Route: PO; hb 19:02 Follow up: Response: No adverse reaction hb 16:36 Drug: Levalbuterol Inhalation 1.25 mg Inhalation once Route: Inhalation; hb 19:01 Drug: diphenhydrAMINE IVP 12.5 mg IVP once Route: IVP; Site: left antecubital; hb 19:30 Follow up: Response: No adverse reaction rg5 19:02 Drug: Famotidine IVP 20 mg IVP once; dilute with 10 mL 0.9% NaCl; give over 2 minutes hb Route: IVP; Site: left antecubital; 19:30 Follow up: Response: No adverse reaction rg5 Medication: 18:25 VIS not applicable for this client. hb Outcome: 19:14 Discharge ordered by . rn 19:53 Discharged to home via wheelchair, rg5 19:53 Condition: stable 19:53 Discharge instructions given to patient, family, Instructed on discharge instructions, follow up and referral plans. Demonstrated understanding of instructions, follow-up care, medications, Prescriptions given X 2, 19:55 Patient left the ED. rg5 Signatures: Benson Jordan MD MD rn Martinez, Eric em1 Chandrika Martínez RN RN Gunjan Meyers Tawney RN RN tm6 Jame Watts RN RN rg5
--- NOTE | 2024-09-14 19:14 | EDPHYS ---
Physician Documentation [facility] Name: Melanie Lyons Age: 84 yrs Sex: Female : 1940 Arrival Date: 09/14/2024 Time: 15:33 Bed 16 Private MD: ED Physician Benson Jordan HPI: 09/14 16:42 This 84 yrs old Female presents to ER via Wheelchair with complaints of rn Allergic Reaction. 16:42 The patient presents with itching, rash. Onset: The symptoms/episode began/occurred 2 rn day(s) ago. Associated signs and symptoms: Pertinent positives: hives, Pertinent negatives: abdominal pain, Altered mental status chest pain, Light headed swelling, Syncope vomiting. Possible causes: Phenergan, Ozempic. Severity of symptoms: At their worst the symptoms were mild in the emergency department the symptoms are unchanged. The patient has not experienced similar symptoms in the past. Patient was having bad side effects from Ozempic so her PCP decrease the dose recently. Doing better in terms of Ozempic side effects but most recently prescribed Phenergan for nausea, took it 2 days ago and started with rash and itching. No shortness of breath. No swelling. Historical: - Allergies: 15:57 Lisinopril; cough; tm6 15:57 PENICILLINS; tm6 - PMHx: 15:57 Congestive heart failure; COPD; diabetes mellitus; Hypertensive disorder; tm6 Hypothyroidism; pulmonary edema; Vertigo; - PSHx: 15:57 Appendectomy; back; heart cath; Heart Stents; tm6 - Immunization history:: Flu vaccine status is unknown. - Infectious Disease History:: Denies. - Social history:: Smoking status: Patient denies any tobacco usage or history of. - Family history:: not pertinent. - Hospitalizations: : No recent hospitalization is reported. ROS: 16:42 Constitutional: Negative for fever, chills, and weight loss, Cardiovascular: Negative rn for chest pain, palpitations, and edema, Respiratory: Negative for shortness of breath, cough, wheezing, and pleuritic chest pain, Abdomen/GI: Negative for abdominal pain, nausea, vomiting, diarrhea, and constipation, Back: Negative for injury and pain, MS/Extremity: Negative for injury and deformity, Skin: Positive for rash and itching Neuro: Negative for headache, weakness, numbness, tingling, and seizure, Exam: 16:42 Constitutional: This is a well developed, well nourished patient who is awake, alert, rn and in no acute distress. ENT: No stridor Cardiovascular: Regular rate and rhythm. No pulse deficits. Respiratory: Mild tachypnea, no retractions Abdomen/GI: Soft, nontender Skin: Mild urticaria along upper torso MS/ Extremity: Pulses equal, no cyanosis. Neurovascular intact. Full, normal range of motion. Equal circumference. Neuro: Awake and alert, GCS 15 Vital Signs: 15:55 BP 157 / 73; Pulse 81; Resp 20; Temp 98.2(O); Pulse Ox 98% on R/A; MAP 98 mmHg; Pain tm6 0/10; 18:00 BP 146 / 76; Pulse 82; Resp 15; Pulse Ox 99% on R/A; hb 19:10 BP 135 / 77; Pulse 79; Resp 18; Pulse Ox 99% on R/A; Pain 0/10; rg5 15:55 Pain Scale: Adult tm6 19:10 Pain Scale: Adult rg5 MDM: 15:47 Medical Screening Exam initiated rn 19:13 Differential diagnosis: Urticaria, allergic reaction. Data reviewed: vital signs, rn nurses notes, and as a result, I will discharge patient. Counseling: I had a detailed discussion with the patient and/or guardian regarding the historical points, exam findings, and any diagnostic results supporting the discharge/admit diagnosis, the need for outpatient follow up, to return to the emergency department if symptoms worsen or persist or if there are any questions or concerns that arise at home. Special discussion: I discussed with the patient/guardian in detail that at this point there is no indication for admission to the hospital. It is understood, however, that if the symptoms persist or worsen the patient needs to return immediately for re-evaluation. 09/14 16:01 Order name: IV Start; Complete Time: 16:30 rn Administered Medications: 16:36 Drug: MethylPrednisoLONE IVP 125 mg IVP once Route: IVP; Site: left antecubital; hb 19:02 Follow up: Response: No adverse reaction hb 16:36 Drug: diphenhydrAMINE IVP 12.5 mg IVP once Route: IVP; Site: left antecubital; hb 19:02 Follow up: Response: No adverse reaction hb 16:36 Drug: hydrOXYzine PO 25 mg PO once Route: PO; hb 19:02 Follow up: Response: No adverse reaction hb 16:36 Drug: Levalbuterol Inhalation 1.25 mg Inhalation once Route: Inhalation; hb 19:01 Drug: diphenhydrAMINE IVP 12.5 mg IVP once Route: IVP; Site: left antecubital; hb 19:30 Follow up: Response: No adverse reaction rg5 19:02 Drug: Famotidine IVP 20 mg IVP once; dilute with 10 mL 0.9% NaCl; give over 2 minutes hb Route: IVP; Site: left antecubital; 19:30 Follow up: Response: No adverse reaction rg5 Disposition Summary: 09/14/24 19:14 Discharge Ordered Notes: Location: Home rn Problem: new rn Symptoms: have improved rn Condition: Stable rn Diagnosis - Acute allergic reaction rn Followup: rn - With: Private Physician - When: As needed - Reason: Recheck today's complaints, Re-evaluation by your physician Discharge Instructions: - Discharge Summary Sheet johan Hardwick rn Forms: - Medication Reconciliation Form rn - Antibiotic pattern vault clerk - Prescription Opioid Use rn - Patient Portal Instructions rn - Leadership Thank You Letter rn Prescriptions: - Hydroxyzine HCl 50 mg Oral Tablet - take 1 tablet ORAL route every 8 hours As needed; 20 tablet; Refills: 0, rn Product Selection Permitted - Prednisone 20 mg Oral Tablet - take 3 tablets ORAL route once daily for 5 days; 15 tablet; Refills: 0, Product rn Selection Permitted Signatures: Benson Jordan MD MD rn Baxter, Heather RN Kayla Hutton RN RN tm6 Jame Watts RN rg5
[2024-09-14 20:17] VITALS: TEMP 98.2
[2024-09-14 20:20] VITALS: O2SAT 99
[2024-09-14 20:22] VITALS: BP 135/77
== END 2024-09-14 19:55 | disposition home or self-care (01) ==
LOC: ER 15:33
DX: L50.9 Urticaria, unspecified (principal)
CPT/HCPCS: 96375; 96374; 99285; J1200 ×2; J7614; J2919

== ENCOUNTER 2024-10-21 13:54 | Emergency (ER) | payer OTHER ==
[2024-10-21 15:25] LABS: Absolute Eosinophils 0.2 K/uL (0-0.5); Absolute Lymphocytes (CBC) 1.7 K/uL (0.7-4.9); Absolute Monocytes 0.4 K/uL (0.1-1.3); Absolute Neutrophil 4.1 K/uL (1.8-8.0); Basophils % 0.4 % (0-1.3); Eosinophils % 2.6 % (0-4.4); Hematocrit 43.7 % (36.0-45.0); Hemoglobin 14.5 g/dL (12.0-15.0); Lymphocytes % 26.8 % (15.3-44.8); MCH 27.2 pg (27.0-35.0); MCHC 33.2 g/dL (32.0-36.0); MCV 81.8 fL (80-100); MPV 8.5 fL (7.6-11.3); Monocytes % 6.2 % (3.3-12.3); Nucleated Red Blood Cells % 0.1 % (0-0); Platelets 262 thou/uL (152-406); RBC Red Blood Cell Count 5.34 M/uL (3.86-4.86); Red Cell Distribution Width 13.9 % (12.1-15.2)
[2024-10-21 15:46] LABS: Albumin 3.2 g/dL (3.4-5.0); Albumin/Globulin Ratio 0.8 (1.1-1.8); Anion Gap 8.8 mEq/L (5.0-15.0); Bilirubin Total 0.3 mg/dL (0.2-1.0); Globulin 4.2 g/dL (2.3-3.5); Potassium 3.8 mEq/L (3.5-5.1); Protein, Total 7.4 g/dL (6.4-8.2)
--- NOTE | 2024-10-21 17:35 | RAD REPORT ---
EXAMINATION: CT ABDOMEN AND PELVIS WITH CONTRAST CLINICAL INDICATION: Female, 84 years old.ABD PAIN TECHNIQUE: CT abdomen and pelvis was performed, after the administration of IV contrast, as per depar tment protocol. Axial, sagittal and coronal reconstructions were obtained. One or more of the following dose reduction techniques were used: Automated exposure control, adjustment of the mA and/o r kV according to patient size, and/or iterative reconstruction. Unless otherwise specified, incidental findings do not require dedicated imaging follow-up. [id number]. COMPARISON: 05/24/2024 FINDINGS: LOWER CHEST: No acute process identified.No significant pericardial effusion. Coronary artery calcifi cations present.Small hiatal hernia with circumferential thickening of the esophagus which could reflect esophagitis. UPPER GI: Hiatal hernia. LIVER: Hepatic steatosis, but otherwise unremarkable. GALLBLADDER/BILE DUCTS: No biliary ductal dilatation.? PANCREAS: No mass, ductal dilation, or grace-pancreatic fluid. SPLEEN: Unremarkable. ADRENALS: No adrenal masses. KIDNEYS AND URETERS: No hydronephrosis.Low density and/or too small to characterize renal lesions whi ch are statistically benign. ABDOMINAL AORTA AND OTHER VESSELS: Mild atherosclerotic changes. PERITONEUM: No abnormal free fluid. No free air. LYMPH NODES: No pathologic lymphadenopathy. ABDOMINAL WALL: Small fat containing umbilical hernia. SMALL BOWEL/COLON: Inflammatory changes at the proximal sigmoid consistent with nonperforated sigmoid diverticulitis.No bowel obstruction. URINARY BLADDER: Underdistended but grossly unremarkable. REPRODUCTIVE ORGANS: Calcified uterine fibroids. Possible endometrial fluid versus thickening. MUSCULOSKELETAL: Multilevel degenerative changes in the spine. No acute fracture. ADDITIONAL FINDINGS: None. IMPRESSION: 1. Nonperforated proximal sigmoid diverticulitis. 2. Endometrial fluid versus thickening. Recommend nonemergent pelvic ultrasound. 3. Small hiatal hernia with thickened distal esophagus likely reflect esophagitis. Endoscopy could be tter evaluate.
[2024-10-21 19:28] LABS: Specific Gravity > 1.030 (1.005-1.030); Sqamous Epithelial <5 /HPF (None Seen); Urine Bacteria None Seen /HPF (<20); Urine Bilirubin NEGATIVE (Negative); Urine Blood Negative (Negative); Urine Clarity Clear (Clear); Urine Color Colorless (Yellow); Urine Culture Reflex Order NOT NEEDED; Urine Glucose 4+ (Over) (Negative); Urine Ketones NEGATIVE (Negative); Urine Microscopic Reflex YN ORDER UMIC; Urine Nitrite NEGATIVE (Negative); Urine Protein NEGATIVE (Negative); Urine Urobilinogen Normal (Normal); Urine WBC <5 /HPF (<5); Urine pH 5.5 (5.0-7.0)
[2024-10-21 19:29] LABS: Urine Crystals Unidentified Few /HPF (None Seen); Urine Mucus Slight /HPF (None Seen)
--- NOTE | 2024-10-21 19:36 | EDPHYS ---
Physician Documentation [facility] Name: Melanie Lyons Age: 84 yrs Sex: Female : 1940 Arrival Date: 10/21/2024 Time: 13:54 Bed 15 Private MD: ED Physician Trey Contreras HPI: 10/21 14:30 This 84 yrs old Female presents to ER via Wheelchair with complaints of ms3 Abdominal Pain, Vaginal Bleeding, Rectal Bleeding. 14:30 Melanie Lyons is an 84-year-old female who presents to the Emergency Department with a ms3 complaint of pain in the lower abdomen, rated as a 7 out of 10 in severity. The pain has been present for three days. Today, she began experiencing vaginal bleeding. The bleeding is described as light. She reports a history of diverticulitis, which is a concern given the current symptoms. She reports not having nausea, vomiting, or diarrhea.. Historical: - Allergies: 14:14 Lisinopril; cough; ko1 14:14 PENICILLINS; ko1 - Home Meds: 14:14 Metformin Oral [Active]; Metoprolol Tartrate Oral [Active]; Synthroid Oral [Active]; ko1 - PMHx: 14:14 Congestive heart failure; COPD; diabetes mellitus; Hypertensive disorder; ko1 Hypothyroidism; pulmonary edema; Vertigo; 14:20 Diverticulitis; ko1 - PSHx: 14:14 Appendectomy; back; heart cath; Heart Stents; ko1 - Immunization history:: Adult Immunizations unknown. - Infectious Disease History:: Denies. - Social history:: Smoking status: Patient denies any tobacco usage or history of. ROS: 14:30 Constitutional: Negative for fever, and chills. Cardiovascular: Negative for chest ms3 pain, and palpitations. Respiratory: Negative for shortness of breath, cough, wheezing, and pleuritic chest pain, 14:30 Skin: Negative for injury, rash, and discoloration, 14:30 Abdomen/GI: Positive for abdominal pain, Negative for nausea, vomiting, and diarrhea, Exam: 14:30 Constitutional: This is a well developed, well nourished patient who is awake, alert, ms3 and in no acute distress. Cardiovascular: Regular rate and rhythm with a normal S1 and S2. No gallops, murmurs, or rubs. Normal PMI, no JVD. No pulse deficits. Respiratory: Lungs have equal breath sounds bilaterally, clear to auscultation and percussion. No rales, rhonchi or wheezes noted. No increased work of breathing, no retractions or nasal flaring. 14:30 Abdomen/GI: Inspection: abdomen appears normal, Bowel sounds: normal, Palpation: moderate abdominal tenderness, in the right lower quadrant and left lower quadrant, Vital Signs: 14:10 BP 147 / 75; Pulse 68; Resp 16; Temp 97.1; Pulse Ox 97% on R/A; ko1 15:45 BP 142 / 75; Pulse 70; Resp 18; Pulse Ox 98% on R/A; kj2 16:45 BP 140 / 76; Pulse 68; Resp 18; Pulse Ox 100% on R/A; kj2 19:34 BP 130 / 93; Pulse 65; Resp 18; Pulse Ox 99% on R/A; Pain 7/10; rg5 19:34 Pain Scale: Adult rg5 MDM: 14:27 Medical Screening Exam initiated ms3 14:30 Differential diagnosis: malignancy, Neoplasm nonspecific abdominal pain, urinary tract ms3 infection. 19:52 Data reviewed: vital signs, nurses notes, lab test result(s), radiologic studies, and ms3 as a result, I will discharge patient. I considered the following discharge prescriptions or medication management in the emergency department Medications were administered in the Emergency Department. See MAR. Historians other than the Patient: Daughter/Son: Discussed labs, imaging with patient and her daughter. Pelvic exam does not reveal mass or bleeding from cervical os. Patient to follow-up with primary care physician and gynecology in 2 to 3 days. Discussed need for pelvic ultrasound on nonemergent basis with patient and her daughter. All questions were answered. Return precautions discussed include worsening symptoms, fevers, or any other concerns. On reevaluation patient is alert, no apparent distress, nontoxic-appearing, speaking full sentences.. 10/21 14:08 Order name: CBC with Diff; Complete Time: 16:50 ms3 10/21 14:08 Order name: CMP; Complete Time: 16:50 ms3 10/21 14:08 Order name: Lipase; Complete Time: 16:50 ms3 10/21 14:28 Order name: Urinalysis w/ reflexes; Complete Time: 19:35 ms3 10/21 14:28 Order name: CT Abd/Pelvis - IV Contrast Only; Complete Time: 17:51 ms3 10/21 14:08 Order name: IV Saline Lock; Complete Time: 15:14 ms3 10/21 14:08 Order name: Labs collected and sent; Complete Time: 15:14 ms3 Administered Medications: 19:44 Drug: Ciprofloxacin PO 500 mg PO once Route: PO; rg5 20:03 Follow up: Response: No adverse reaction rg5 19:44 Drug: metroNIDAZOLE PO 500 mg PO once Route: PO; rg5 20:03 Follow up: Response: No adverse reaction rg5 Disposition Summary: 10/21/24 19:35 Discharge Ordered Notes: Location: Home ms3 Condition: Stable ms3 Diagnosis - Diverticulitis of large intestine without perforation or abscess without bleeding ms3 - Abnormal uterine and vaginal bleeding, unspecified ms3 Followup: ms3 - With: Private Physician - When: 2 - 3 days - Reason: Recheck today's complaints Discharge Instructions: - Discharge Summary Sheet ms3 - High-Fiber Eating Plan ms3 - Diverticulitis ms3 - Dysfunctional Uterine Bleeding ms3 Forms: - Medication Reconciliation Form ms3 - Antibiotic Education ms3 - Prescription Opioid Use ms3 - Patient Portal Instructions ms3 - Leadership Thank You Letter ms3 Prescriptions: - Cipro 500 mg Oral tablet - take 1 tablet ORAL route every 12 hours for 5 days; 10 tablet; Refills: 0, ms3 Product Selection Permitted - Flagyl 500 mg Oral tablet - take 1 tablet ORAL route every 8 hours for 5 days; 15 tablet; Refills: 0, ms3 Product Selection Permitted Signatures: Dispatcher [employer] EDMS Trey Contreras DO DO ms3 Alycia Hall, RN RN ko1 Jame Watts, RN RN rg5 Corrections: (The following items were deleted from the chart) 14:08 14:08 CBC+H.LAB.BRZ ordered. EDMS EDMS 14:08 14:08 COMPREHENSIVE METABOLIC PANEL+C.LAB.BRZ ordered. EDMS EDMS 14:08 14:08 LIPASE+C.LAB.BRZ ordered. EDMS EDMS 14:16 14:14 Home Meds: Plavix 75 mg Oral tablet daily; ko1 ko1
--- NOTE | 2024-10-21 19:36 | ER ---
Nurse's Notes [facility] Name: Melanie Lyons Age: 84 yrs Sex: Female : 1940 Arrival Date: 10/21/2024 Time: 13:54 Bed 15 Private MD: Diagnosis: Diverticulitis of large intestine without perforation or abscess without bleeding;Abnormal uterine and vaginal bleeding, unspecified Presentation: 10/21 14:10 Chief complaint: Patient states: c/o lower abd pain for 3 days, today started vaginal ko1 bleeding, bright red. Coronavirus screen: At this time, the client does not indicate any symptoms associated with coronavirus-19. Ebola Screen: No symptoms or risks identified at this time. Initial Sepsis Screen: Does the patient meet any 2 criteria? No. Patient's initial sepsis screen is negative. Does the patient have a suspected source of infection? No. Patient's initial sepsis screen is negative. Risk Assessment: Do you want to hurt yourself or someone else? Patient reports no desire to harm self or others. Onset of symptoms was October 21, 2024. 14:10 Method Of Arrival: Wheelchair ko1 14:10 Acuity: VIRAL 3 ko1 Triage Assessment: 14:14 General: Appears in no apparent distress. Behavior is calm, cooperative, appropriate ko1 for age. Pain: Complains of pain in right lower quadrant and left lower quadrant. GI: Reports lower abdominal pain. Historical: - Allergies: 14:14 Lisinopril; cough; ko1 14:14 PENICILLINS; ko1 - Home Meds: 14:14 Metformin Oral [Active]; Metoprolol Tartrate Oral [Active]; Synthroid Oral [Active]; ko1 - PMHx: 14:14 Congestive heart failure; COPD; diabetes mellitus; Hypertensive disorder; ko1 Hypothyroidism; pulmonary edema; Vertigo; 14:20 Diverticulitis; ko1 - PSHx: 14:14 Appendectomy; back; heart cath; Heart Stents; ko1 - Immunization history:: Adult Immunizations unknown. - Infectious Disease History:: Denies. - Social history:: Smoking status: Patient denies any tobacco usage or history of. Screenin:44 [facility] ED Fall Risk Assessment (Adult) History of falling in the last 3 months, kj2 including since admission No falls in past 3 months (0 pts) Confusion or Disorientation No (0 pts) Intoxicated or Sedated No (0 pts) Impaired Gait Yes (1 pt) Mobility Assist Device Used Yes (1 pt) Altered Elimination No (0 pt) Score/Fall Risk Level 0 - 2 = Low Risk Maintained a safe environment, Hourly rounding (assess needs \T\ fall precautionary measures) done. Abuse screen: Denies threats or abuse. Denies injuries from another. Nutritional screening: No deficits noted. Tuberculosis screening: No symptoms or risk factors identified. Assessment: 15:43 General: Appears in no apparent distress. Behavior is calm, cooperative. Pain: kj2 Complains of pain in abdomen and left lower quadrant and right lower quadrant Pain currently is 4 out of 10 on a pain scale. Neuro: Level of Consciousness is awake, Oriented to person, place, time, situation. Cardiovascular: Patient's skin is warm and dry. Respiratory: Airway is patent Respiratory effort is even, unlabored. GI: No signs and/or symptoms were reported involving the gastrointestinal system. : No signs and/or symptoms were reported regarding the genitourinary system. 16:45 Reassessment: Patient appears in no apparent distress at this time. Patient and/or kj2 family updated on plan of care and expected duration. Pain level reassessed. Patient is alert, oriented x 3, equal unlabored respirations, skin warm/dry/pink. 19:33 Reassessment: No changes from previously documented assessment. Patient and/or family rg5 updated on plan of care and expected duration. Pain level reassessed. Patient is alert, oriented x 3, equal unlabored respirations, skin warm/dry/pink. Patient states symptoms have improved. Neuro: Level of Consciousness is awake, Oriented to person, place, time, situation. Cardiovascular: Denies chest pain. Respiratory: Airway is patent Trachea midline Respiratory effort is even, unlabored, Respiratory pattern is regular, symmetrical. GI: Bowel sounds present in left lower quadrant Abd is soft and non tender. : No signs and/or symptoms were reported regarding the genitourinary system. Vital Signs: 14:10 BP 147 / 75; Pulse 68; Resp 16; Temp 97.1; Pulse Ox 97% on R/A; ko1 15:45 BP 142 / 75; Pulse 70; Resp 18; Pulse Ox 98% on R/A; kj2 16:45 BP 140 / 76; Pulse 68; Resp 18; Pulse Ox 100% on R/A; kj2 19:34 BP 130 / 93; Pulse 65; Resp 18; Pulse Ox 99% on R/A; Pain 7/10; rg5 19:34 Pain Scale: Adult rg5 ED Course: 13:58 Patient arrived in ED. al6 14:07 Trey Contreras DO is Attending Physician. ms3 14:14 Triage completed. ko1 14:17 Arm band placed on right wrist. Patient placed in waiting room, Patient notified of ko1 wait time. 15:14 CBC with Diff Sent. bc6 15:14 CMP Sent. bc6 15:14 Lipase Sent. bc6 15:14 Initial lab(s) drawn, by me, sent to lab. Inserted saline lock: 24 gauge in left bc6 antecubital area, using aseptic technique. Blood collected. Flushed with 10 mL NS. 15:36 Patient placed in an exam room, on a stretcher. ll1 15:40 Elisa Valencia, RN is Primary Nurse. kj2 15:45 Patient has correct armband on for positive identification. Bed in low position. Call kj2 light in reach. Side rails up X 1. Adult w/ patient. Provided Education on: call light. 15:45 No provider procedures requiring assistance completed. kj2 17:14 CT Abd/Pelvis - IV Contrast Only In Process Unspecified. EDMS 20:02 IV discontinued, bleeding controlled, No redness/swelling at site. Pressure dressing rg5 applied. Administered Medications: 19:44 Drug: Ciprofloxacin PO 500 mg PO once Route: PO; rg5 20:03 Follow up: Response: No adverse reaction rg5 19:44 Drug: metroNIDAZOLE PO 500 mg PO once Route: PO; rg5 20:03 Follow up: Response: No adverse reaction rg5 Medication: 15:44 VIS not applicable for this client. kj2 Outcome: 19:35 Discharge ordered by MD. ms3 20:02 Discharged to home ambulatory, rg5 20:02 Condition: stable 20:02 Discharge instructions given to patient, Instructed on discharge instructions, follow up and referral plans. Demonstrated understanding of instructions, follow-up care, medications, Prescriptions given X 2, 20:03 Patient left the ED. rg5 Signatures: Dispatcher [employer] EDMS Maria Elena Drake RN RN ll1 Trey Contreras DO DO ms3 Alycia Hall RN RN ko1 Kati Scott 6 Jame Watts, MIKI RN rg5 Elisa Valencia RN RN kj2 Latha Rubalcava6 Corrections: (The following items were deleted from the chart) 14:16 14:14 Home Meds: Plavix 75 mg Oral tablet daily; ko1 ko1
[2024-10-21] MEDS ORDERED: metroNIDAZOLE 500 MG TABLET ONE (19:44)
[2024-10-21] MEDS ORDERED: CIPROFLOXACIN HCL 500 MG TAB ONE (19:44)
[2024-10-21 20:43] VITALS: TEMP 97.1
[2024-10-21 20:46] VITALS: BP 130/93; O2SAT 99
== END 2024-10-21 20:03 | disposition home or self-care (01) ==
LOC: ER 13:54
DX: K57.32 Diverticulitis of large intestine without perforation or abscess without bleeding (principal); N93.9 Abnormal uterine and vaginal bleeding, unspecified; E11.9 Type 2 diabetes mellitus without complications; I10 Essential (primary) hypertension; I50.9 Heart failure, unspecified; E03.9 Hypothyroidism, unspecified; Z95.818 Presence of other cardiac implants and grafts
CPT/HCPCS: 85025; 81001; 36415; 83690; 80053; 74177; Q9967